=== PATIENT | male | born 1940 | race Caucasian/White ===

== ENCOUNTER 2022-11-25 10:12 | Outpatient (RCR) | payer MEDICARE, SELFPAY | END 2022-11-27 14:00 | disposition home or self-care (01) | LOC: PT 10:12 | PROVIDERS: PCP Family Medicine; Visit Provider Family Medicine | DX: M79.604 Pain in right leg (principal) | CPT/HCPCS: 97110 ==

== ENCOUNTER 2023-03-24 06:45 | Outpatient (OUT) | payer MEDICARE, SELFPAY ==
[2023-03-24 07:11] LABS: Basophils Percent Auto 0.5 % (0.2-2.0); Eosinophils Absolute Auto 0.2 10^3/uL (0.0-0.7); Hematocrit 39.7 % (42.0-54.0); Immature Granulocytes Abs Auto 0.03 10^3/uL (0.00-0.03); Immature Granulocytes Pct Auto 0.5 % (0.0-0.5); Lymphocytes Absolute Auto 0.8 10^3/uL (1.2-3.8); Lymphocytes Percent Auto 13.6 % (20.5-60.0); Mean Corpuscular HGB Conc 32.7 g/dL (29.9-35.2); Mean Corpuscular Hemoglobin 33.3 pg (25.9-34.0); Mean Corpuscular Volume 101.8 fL (80.0-94.0); Mean Platelet Volume 10.4 fL (9.5-13.5); Monocytes Absolute Auto 0.7 10^3/uL (0.3-0.8); Monocytes Percent Auto 11.6 % (1.7-12.0); Neutrophils Absolute Auto 4.1 10^3/uL (1.4-6.5); Neutrophils Percent Auto 69.8 % (43.0-75.0); Platelet Count 164 10^3/uL (150-450); Red Cell Distribution Width 13.4 % (11.0-15.0); White Blood Count 5.9 10^3/uL (4.0-11.0)
[2023-03-24 07:46] LABS: Estimated Average Glucose 137 mg/dL; Glycohemoglobin A1C 6.4 % (4.5-6.2)
[2023-03-24 08:36] LABS: Alanine Aminotransferase 31 U/L (16-63); Albumin Globulin Ratio 1.2; Albumin Level 3.6 g/dL (3.4-5.0); Alkaline Phosphatase 66 U/L (46-116); Anion Gap 16.9; Aspartate Amino Transferase 26 U/L (15-37); BUN Creatinine Ratio 15.2; Bilirubin Total 0.5 mg/dL (0.2-1.0); Calcium 8.7 mg/dL (8.5-10.1); Carbon Dioxide 23.1 mmol/L (21.0-32.0); Chloride 106 mmol/L (98-107); Chol HDL Ratio 2.7; Cholesterol 100 mg/dL (<=200); Estimated GFR (African America 37 (>=60); Estimated GFR (Non-African Ame 31 (>=60); Free T3 3.03 pg/mL (2.18-3.98); Globulin 3.1 g/dL; Glucose 120 mg/dL (74-106); HDL Cholesterol 37 mg/dL (40-60); Sodium 141 mmol/L (136-145); Total Protein 6.7 g/dL (6.4-8.2); Triglycerides 83 mg/dL (<=150); VLDL CHOLESTEROL 16.6 mg/dL
[2023-03-24 08:48] LABS: Prostate Specific Antigen Scrn 5.61 ng/mL (<=4.00)
[2023-03-26 08:12] LABS: PSA, Free 0.62 ng/mL; Prostate Specific Ag 4.6 ng/mL (0.0-4.0)
== END 2023-03-24 06:46 | disposition home or self-care (01) ==
LOC: LAB 06:48
PROVIDERS: PCP Family Medicine; Visit Provider Family Medicine
DX: E78.5 Hyperlipidemia, unspecified (principal); I10 Essential (primary) hypertension; J44.9 Chronic obstructive pulmonary disease, unspecified; E03.9 Hypothyroidism, unspecified; I25.10 Atherosclerotic heart disease of native coronary artery without angina pectoris; R73.09 Other abnormal glucose; Z12.5 Encounter for screening for malignant neoplasm of prostate
CPT/HCPCS: 36415; 80053; 80061; 83036; 84153; 84154; 84436; 84443; 84481; 85025; G0103

== ENCOUNTER 2023-06-08 10:38 | Outpatient (OUT) | payer MEDICARE, SELFPAY ==
[2023-06-08 11:13] LABS: Hematocrit 40.3 % (42.0-54.0); Hemoglobin 13.3 g/dL (14.0-18.0); Mean Corpuscular Hemoglobin 33.4 pg (25.9-34.0); Mean Corpuscular Volume 101.3 fL (80.0-94.0); Mean Platelet Volume 10.7 fL (9.5-13.5); Platelet Count 172 10^3/uL (150-450); Red Blood Count 3.98 10^6/uL (4.70-6.10); Red Cell Distribution Width 13.5 % (11.0-15.0); White Blood Count 5.9 10^3/uL (4.0-11.0)
[2023-06-08 11:17] LABS: Bilirubin Urine NEGATIVE (NEGATIVE); Blood Urine NEGATIVE (NEGATIVE); Clarity Urine CLEAR (CLEAR); Color Urine LT. YELLOW (YELLOW); Glucose Urine UA NEGATIVE (NEGATIVE); Ketones Urine NEGATIVE (NEGATIVE); Leukocyte Esterase Urine NEGATIVE (NEGATIVE); Nitrite Urine NEGATIVE (NEGATIVE); Protein Urine NEGATIVE (NEG/TRACE); Urobilinogen Urine 0.2 EU/dL (0.2-1.0)
[2023-06-08 11:23] LABS: Bacteria Urine NONE SEEN #/HPF (NONE SEEN); Cast Seen? NONE SEEN #/LPF (NONE SEEN); Crystals Seen? None Seen #/HPF (None Seen); Mucus Urine NONE SEEN (NONE SEEN); RBC Urine NONE SEEN #/HPF (0-2); Squamous Epithelial Cell Urine NONE SEEN #/LPF (NONE/RARE); WBC Urine NONE SEEN #/HPF (NONE SEEN)
[2023-06-08 11:54] LABS: Creatinine Urine Random 35.37 mg/dL (20.00-300.00); Protein Creatinine Ratio Urine 0.17; Total Protein Urine Random <6.0 mg/dL (<=11.9)
[2023-06-08 12:55] LABS: Percent Iron Saturation 32.2 %
[2023-06-08 12:56] LABS: Albumin Level 3.7 g/dL (3.4-5.0); Anion Gap 13.4; BUN Creatinine Ratio 13.3; Calcium 8.9 mg/dL (8.5-10.1); Carbon Dioxide 25.4 mmol/L (21.0-32.0); Chloride 102 mmol/L (98-107); Estimated GFR (African America 42 (>=60); Estimated GFR (Non-African Ame 35 (>=60); Glucose 78 mg/dL (74-106); Magnesium 1.8 mg/dL (1.8-2.4); Phosphorus 3.7 mg/dL (2.6-4.7); Potassium 4.8 mmol/L (3.5-5.1); Sodium 136 mmol/L (136-145); Uric Acid 6.6 mg/dL (3.5-7.2)
[2023-06-09 13:07] LABS: PTH, Intact 33 pg/mL (15-65)
== END 2023-06-08 10:39 | disposition home or self-care (01) ==
LOC: LAB 10:40
PROVIDERS: PCP Family Medicine; Visit Provider Internal Medicine
DX: E11.22 Type 2 diabetes mellitus with diabetic chronic kidney disease (principal); N18.30 Chronic kidney disease, stage 3 unspecified; I12.9 Hypertensive chronic kidney disease with stage 1 through stage 4 chronic kidney disease, or unspecified chronic kidney disease; N25.81 Secondary hyperparathyroidism of renal origin; N20.0 Calculus of kidney
CPT/HCPCS: 36415; 80069; 81001; 82306; 82570; 82728; 83540; 83550; 83735; 83970; 84156; 84550; 85027

== ENCOUNTER 2023-07-19 11:13 | Outpatient (OUT) | payer MEDICARE, SELFPAY ==
--- OUTSIDE RECORDS SUMMARY | 2023-07-19 11:18 | XMS_ITS | CCD ---
Author Name Unknown Address [address] [place] [address] Organization [facility] Care Team Providers Care Ethylbenzene Converter Operator Name Role Phone Tray Alfaro Primary Care Physician Alicia Perea Unavailable MD Tray Alfaro Primary Care Provider MD Hiral Interiano Admit Provider MD Hiral Interiano Attending Provider [phone] ALISHA Mckinley [facility] Other Provider Unavailable DO Lizzy Lin Other Provider MD Niharika Elias Other Provider MD Joel Larkin Other Provider MD Isidro Dow Other Provider MD Peter Manuel Other Provider ILA Borges Other Provider MD Peyton Barragan Other Provider MD Myesha Solo Other Provider MD Skinny Kiser Other Provider LEISA Tamayo- Jen Desir Other Provider MD Aaliyah Mitchell Other Provider MD Alicia Perea Other Provider MD Milton Braun Other Provider MD Ni Olivares Other Provider [phone] MD Yogesh Omalley Other Provider MD Kiran Eldridge Jr Other Provider [phone] MD Fátima Ivey Other Provider MD Shaquille Villarreal Other Provider MD Bipin Barclay Other Provider BRIT, ALICIA Consulting Unavailable BRIT, ALICIA Attending Unavailable BRIT, ALICIA Admitting Unavailable HOY ., DR FELIZ Primary Care Unavailable HOY ., DR FELIZ Primary Care Unavailable HOY ., DR FELIZ Admcrescencio Unavailable HOY ., DR FELIZ Attending Unavailable COOK, DR NI Garcia Consulting Unavailable COOK, DR NI Garcia Attending Unavailable HOY ., DR FELIZ Primary Care Unavailable COOK, DR NI Garcia Admitting Unavailable WEST, DR TYLER Coello Consulting Unavailable HOY ., DR FELIZ Consulting Unavailable HOY ., DR FELIZ Primary Care Unavailable HOY ., DR FELIZ Admcrescencio Unavailable HOY ., DR FELIZ Attending Unavailable HOY ., DR FELIZ Consulting Unavailable HOY ., DR FELIZ Attending Unavailable HOY ., DR FELIZ Primary Care Unavailable HOY ., DR FELIZ Admcrescencio Unavailable BRAUN ., DR ROSE Consulting Unavailable BRAUN ., DR ROSE Attending Unavailable HOY ., DR FELIZ Primary Care Unavailable BRAUN ., DR ROSE Admitting Unavailable WEST, DR TYLER Coello Consulting Unavailable DAT, THADDEUS Attending Unavailable HOY ., DR FELIZ Primary Care Unavailable LILIAN, DR CADE Craig Consulting Unavailabl e THADDEUS DAUGHERTY Admcrescencio Unavailable THADDEUS DAUGHERTY Consulting Unavailable YOGESH BYERS Consulting Unavailable ILA GLALEGO Consulting Unavailable BRIT, ALICIA Attending Unavailable BRIT, ALICIA Admitting Unavailable HOY ., DR FELIZ Primary Care Unavailable BRIT, ALICIA Consulting Unavailable HOY ., DR FELIZ Attending Unavailable HOY ., DR FELIZ Primary Care Unavailable HOY ., DR FELIZ Admcrescencio Unavailable HOY ., DR FELIZ Consulting Unavailable HOY ., DR FELIZ Attending Unavailable HOY ., DR FELIZ Primary Care Unavailable HOY ., DR FELIZ Admcrescencio Unavailable HOY ., DR FELIZ Consulting Unavailable BRIT, ALICIA Consulting Unavailable HOY ., DR FELIZ Attending Unavailable HOY ., DR FELIZ Primary Care Unavailable HOY ., DR FELIZ Admitting Unavailable IRWIN, ISRA Consulting Unavailable IRWIN, ISRA Attending Unavailable HOY ., DR FELIZ Primary Care Unavailable IRWIN, ISRA Admitting Unavailable HOY ., DR FELIZ Attending Unavailable HOY ., DR FELIZ Primary Care Unavailable HOY ., DR FELIZ Consulting Unavailable HOY ., DR FELIZ Admitting Unavailable WEST, DR TYLER Coello Consulting Unavailable BERNA, IRIS Consulting Unavailable BERNA, IRIS Attending Unavailable HOY ., DR FELIZ Primary Care Unavailable BERNA, IRIS Admitting Unavailable BERNA, IRIS Consulting Unavailable BERNA, IRIS Attending Unavailable BERNA, IRIS Admitting Unavailable HOY ., DR FELIZ Primary Care Unavailable HOY ., DR FELIZ Primary Care Unavailable HOY ., DR FELIZ Consulting Unavailable HOY ., DR FELIZ Attending Unavailable HOY ., DR FELIZ Admitting Unavailable HOY ., DR FELIZ Primary Care Unavailable COOK, DR NI Garcia Attending Unavailable COOK, DR NI Garcia Admitting Unavailable HOY ., DR FELIZ Consulting Unavailable COOK, DR NI Garcia Consulting Unavailable ZIEBER, DR TESS Brewer Consulting Unavailable HOY ., DR FELIZ Primary Care Unavailable HOY ., DR FELIZ Attending Unavailable HOY ., DR FELIZ Admitting Unavailable HOY ., DR FELIZ Consulting Unavailable HOY ., DR FELIZ Primary Care Unavailable HOY ., DR FELIZ Admitting Unavailable HOY ., DR FELIZ Attending Unavailable JENNIFER HUYNH Attending Unavailable BERNA, IRIS Attending Unavailable BERNA, IRIS Attending Unavailable MD Tray Alfaro Primary Care Provider [phone] MD Ni Olivares Attending Provider [phone] Ni OLIVARES P Referring Unavailable COOKRidgeNi P Admitting Unavailable Ni OLIVARES Attending Unavailable MD ALICIA PEREA Admitting Unavailable MD ALICIA PEREA Attending Unavailable COOK, Ni P Attending Unavailable COOK, Ni P Referring Unavailable COOK, Ni P Admitting Unavailable COOK, Ni P Referring Unavailable COOK, Ni P Admitting Unavailable COOK, Ni P Attending Unavailable COOK, Ni P Referring Unavailable COOK, Ni P Admitting Unavailable COOK, Ni P Attending Unavailable COOK, Ni P Attending Unavailable INTERIANOHIRAL RITTER Referring Unavailable COOK, Ni P Attending Unavailable COOK, Ni P Attending Unavailable COOK, Ni P Attending Unavailable Milton BRAUN Attending Unavailable Ni OLIVARES Attending Unavailable Ni OLIVARES P Referring Unavailable Ni OLIVARES P Admitting Unavailable Tray Alfaro Primary Care Unavailable Interiano, Hiral Admitting Unavailable Interiano, Hiral Attending Unavailable Ni Olivares Attending Unavailable Tray Alfaro Primary Care Unavailable Ni Olivares Admitting Unavailable Gita Mckinley Consulting Unavailable Tray Alfaro Primary Care Unavailable Interiano, Hiral Admitting Unavailable Interiano, Hiral Attending Unavailable Lizzy Lin Consulting Unavailable EliasNiharika iyer Consulting Unavailable Joel Larkin Consulting Unavail able Isidro Dow Consulting Unavailable Peter Manuel Consulting Unavailab Pauline Elizondo Consulting Unavailable Peyton Barragan Consulting Unavailable Myesha Solo Consulting Unavailab Skinny Sanchez Consulting Unavailable Jen Tamayo Consulting Unavailable Fidsamantha, Aaliyah Mcdermott Consulting Unavailable Alicia Perea Consulting Unavailable Milton Braun Consulting Unavailable Ni Olivares Consulting Unavailable Yogesh Omalley Consulting Unavailable Kiran Eldridge Jr Consulting Unavailable Fátima Ivey Consulting Unavailable Shaquille Villarreal Consulting Unavailable Bipin Barclay Consulting Unavailable Ni Olivares Attending Unavailable Tray Alfaro Primary Care Unavailable Ni Olivares Admitting Unavailable Ni Olivares Attending Unavailable Tray Alfaro Primary Care Unavailable Ni Olivares Admitting Unavailable Allergies Allergy Classification Reported Allergen(s) Allergy Type Date of Onset Reaction(s) Facility (12 sources) Ciprofloxacin; Translations: [ciprofloxacin] Drug Allergy 08-13-19 23 Eruption of skin (disorder) [facility] (13 sources) Penicillin; Translations: [penicillin] Drug Allergy Eruption of skin (disorder) [facility] Other (6 sources) Ciprofloxacin Drug Allergy Unknown [id number] Other (7 sources) Penicillins; Translations: [Penicillins] Allergy to substance 06-14-20 14 [facility] (1 source) Ciprofloxacin Drug Allergy 09-14-20 20 [facility] (3 sources) levothyroxine; Translations: [levothyroxine] Drug Allergy Swelling of oral cavity structure (finding) [facility] (3 sources) liothyronine; Translations: [liothyronine] Drug Allergy Swelling of oral cavity structure (finding) [facility] (1 source) No Known Medication Allergies; Translations: [No Known Medication Allergies] Propensity to adverse reactions (disorder) [facility] Rep[facility] (1 source) Ciprofloxacin Drug Allergy 08-13-19 [facility] Repository Medications Current Medications Medication Drug Class(es) Dates Sig (Normalized) Sig (Original) acetaminophen 325 mg / HYDROcodone bitartrate 5 mg oral tablet (1 source) Opioid Agonist Start: 10-07-2022 End: 10-09-2022 acetaminophen-hyd rocodone 325 mg-5 mg oral tablet 1 tab(s), Oral, q4hr Pain for 2 day(s), 7 tab(s), Refill(s) 0, [id number], 175, cm, 09/15/22 5:20:00 EDT, Height/Length Dosing, 114, kg, 09/15/22 5:20:00 EDT, Weight Dosing Start Date: 10/07/22 Stop Date: 10/09/22 Status: Ordered Albuterol (12 sources) beta2-Adrenergic Agonist Start: 02-23-2021 take 2 puff(s) by inhalation every four hours Ventolin Diskus 2 puff(s), Inhalation, q4hr Shortness of breath or wheezing, Refill(s) 0, COPD Start Date: 02/23/21 Status: Ordered Start: 02-23-2021 Ventolin Disku s See Instructions, Refill(s) 0, Shortness of breath or wheezing Start Date: 02/23/21 Status: Ordered Start: 02-23-2021 Ventolin Disku s Refill(s) 0 Start Date: 02/23/21 Status: Ordered take 1 puff(s) by in halation every four hours as needed Ventolin HFA 108 (90 Base) MCG/ACT 1 puff as needed Inhalation every 4 hrs Active amLODIPine 10 mg oral tablet (16 sources) Dihydropyridine Calcium Channel [place] Start: 02-23-2021 take 5 mg by mouth once daily amLODIPine 10 mg Tab 5 mg = 0.5 tab(s), Oral, Daily, Refills(s) 0, High blood pressure Start Date: 02/23/21 Status: Ordered Start: 06-15-2019 take 10 mg by mouth once daily Amlodipine Active 10 MG PO Daily June 15, 2019 12:00am aspirin 81 mg oral tablet (14 sources) Platelet Aggregation Inhibitor, Nonsteroidal Anti-inflammatory Drug Start: 04-10-2019 take 81 mg by mouth once daily Aspirin Active 81 MG PO Daily June 15, 2019 12:00am take 1 tablet by delmer th every twenty-four hours Aspirin 81 81 MG 1 tablet Orally Once a day Active take 1 tablet by mouth once andrew y Aspirin 81 81 MG 1 tablet Orally Once a day Active atorvastatin 80 mg oral tablet (16 sources) HMG-CoA Reductase Inhibitor Start: 06-15-2019 take 40 mg by mouth at bedtime Atorvastatin Active 40 MG PO Bedtime June 15, 2019 12:00am Start: 04-10-2019 take 1 tablet by delmer th once daily atorvastatin 80 mg Tab 80 mg = 1 tab(s), Oral, Daily, High cholesterol Start Date: 04/10/19 Status: Ordered cholecalciferol 0.125 mg disintegrating oral tablet (11 sources) Vitamin D Start: 06-15-2019 take 5000 [IU] by mouth once daily Cholecalciferol (Vitamin D3) Active 5000 UNIT PO Daily June 15, 2019 12:00am Start: 04-10-2019 take 1 tablet by delmer th once daily cholecalciferol 2000 intl units oral tablet (Vitamin D3) 2,000 International_Unit = 1 tab(s), Oral, Daily Start Date: 04/10/19 Status: Ordered Start: 04-10-2019 take 1 tablet by delmer th once daily cholecalciferol 2000 intl units oral tablet (Vitamin D3) 2,000 International_Unit = 1 tab(s), Oral, Daily Start Date: 04/10/19 Status: Ordered take 1 capsule by mo [facility] every twenty-four hours Vitamin D3 125 MCG (5000 UT) 1 capsule Orally Once a day Active diclofenac sodium 75 mg delayed release oral tablet (3 sources) Nonsteroidal Anti-inflammatory Drug Start: 09-14-2022 take 1 tablet by mouth twice daily diclofenac sodium 75 mg Oral EC Tab 75 mg = 1 tab(s), Oral, BID, Refills(s) 0, Arthritis Start Date: 09/14/22 Status: Ordered take 1 tablet by delmer th every twelve hours Diclofenac Sodium 75 MG 1 tablet as need ed Orally Twice a day Active dicyclomine hydrochloride 10 mg oral capsule (4 sources) Anticholinergic Start: 06-18-2019 take 10 mg by mouth three times daily for muscle spasms Dicyclomine Active 10 MG PO Three times daily June 18, 2019 12:09pm for bladder spasms doxycycline hyclate 100 mg oral capsule (5 sources) Tetracycline-class Drug Start: 12-07-2022 doxycycline hyclate 100 mg Cap See Instructions, Take 1 cap the day before your procedure and 1 cap the day of your procedure - afterwards, # 2 cap(s), Refills(s) 0, Pharmacy: [id number], 177, cm, 11/18/22 13:54:00 EDT, Height/Length Dosing, 114.7, kg, 11/18/22 13:54:00 EDT, W... Start Date: 12/07/22 Status: Ordered Start: 07-05-2019 End: 08-15-2022 take 100 mg by mouth twice daily Doxycycline Hyclate Discontinued 100 MG PO Twice daily 14 July 05, 2019 12:00am August 15, 2022 1:41pm glimepiride 4 mg oral tablet (19 sources) Sulfonylurea Start: 09-14-2022 take 1 tablet by mouth twice daily glimepiride 4 mg Tab 4 mg = 1 tab(s), Oral, BID, Refills(s) 0, Blood glucose Start Date: 09/14/22 Status: Ordered Start: 09-14-2022 take 1 tablet by delmer th at bedtime glimepiride 4 mg Tab 4 mg = 1 tab(s), Oral, Bedtime, Refills(s) 0, Blood glucose Start Date: 09/14/22 Status: Ordered Start: 06-18-2019 take 1 mg by mouth once daily Glimepiride Active 1 MG PO Daily 0 June 18, 2019 12:10pm Start: 06-15-2019 End: 06-18-2019 take 2 mg by mouth once daily Glimepiride Discontinued 2 MG PO Daily June 15, 2019 12:00am June 18, 2019 12:11pm Start: 04-10-2019 take 2 mg by mouth once daily Amaryl 4 mg Tab 2 mg = 0.5 tab(s), Oral, Daily Start Date: 04/10/19 Status: Ordered glucosamine sulfate 500 mg oral capsule (6 sources) Start: 04-10-2019 take 1 capsule by mouth twice daily glucosamine 500 mg Cap 500 mg = 1 cap(s), Oral, BID, Arthritis Start Date: 04/10/19 Status: Ordered Start: 04-10-2019 take 1 capsule by mo uth once daily glucosamine 500 mg Cap 500 mg = 1 cap(s), Oral, Daily, Arthritis Start Date: 04/10/19 Status: Ordered Glucosamine Chondr 500 Compl ex - (6 sources) Glucosamine Emmanuel dr 500 Complex - as directed Orally TWICE A DAY Active Glucosamine Emmanuel dr 500 Complex - as directed Orally TWICE A DAY Not-Taking Glucosamine Emmanuel dr 500 Complex - as directed Orally Active 24 hr isosorbide mononitrate 60 mg extended release oral tablet (10 sources) Nitrate Vasodilator Start: 09-14-2022 isosorbide mononitrate 60 mg ER Tab 120 mg = 2 tab(s), Oral, qAM, Refills(s) 0, High blood pressure Start Date: 09/14/22 Status: Ordered Start: 09-14-2022 take 1 tablet by delmer th once daily in the morning isosorbide mononitrate 60 mg ER Tab 60 mg = 1 tab(s), Oral, qAM, Refills(s) 0, High blood pressure Start Date: 09/14/22 Status: Ordered take 1 tablet by delmer th every twenty-four hours Isosorbide Mononitrate ER 120 MG 1 tablet in the morning Orally Once a day Active Ketoconazole (8 sources) Azole Antifungal Start: 11-19-2022 ketoconazole Topical, BID, Refills(s) 0 Start Date: 11/19/22 Status: Ordered Ketoconazole 2 % 1 application Externally Twice a day Active Ketoconazole 2 % 1 application Externally Twice a day Active levothyroxine sodium 0.05 mg oral tablet (12 sources) l-Thyroxine Start: 03-24-2020 take 1 tablet by mouth once daily levothyroxine 50 mcg (0.05 mg) Tab 50 mcg = 1 tab(s), Oral, Daily, Refills(s) 0, Thyroid Start Date: 03/24/20 Status: Ordered take 1 tablet by delmer th once daily in the morning Levothyroxine Sodium 50 MCG 1 tablet in the morning on an empty stomach Orally Once a day Active liothyronine sodium 0.005 mg oral tablet (5 sources) l-Triiodothyronine Start: 09-14-2022 take 1 tablet by mouth once daily liothyronine 5 mcg Tab 5 mcg = 1 tab(s), Oral, Daily, Refills(s) 0, Thyroid Start Date: 09/14/22 Status: Ordered take 1 tablet by delmer th every twenty-four hours Liothyronine Sodium 5 MCG 1 tablet on an empty stomach Orally Once a day Active lisinopril 10 mg oral tablet (16 sources) Angiotensin Converting Enzyme Inhibitor Start: 02-23-2021 take 2 tablets by mouth once daily lisinopril 10 mg Tab 20 mg = 2 tab(s), Oral, Daily, Refills(s) 0, High blood pressure Start Date: 02/23/21 Status: Ordered Start: 02-23-2021 take 1 mg by mouth once daily lisinopril 10 mg Tab mg tab(s), Oral, Daily, Refills(s) 0 Start Date: 02/23/21 Status: Ordered Start: 06-15-2019 End: 06-18-2019 take 60 mg by mouth once daily Lisinopril Discontinued 60 MG PO Daily June 15, 2019 12:00am June 18, 2019 12:11pm take 1 tablet by delmer th every twenty-four hours Lisinopril 20 MG 1 tablet Orally Once a day Active take 1.5 tablets by mouth every twenty-four hours Lisinopril 10 MG 1.5 tablet Orally Once a day for 90 day(s) Active Magnesium (4 sources) Start: 11-19-2022 take 1 tablet by delmer th once daily Magnesium Magnesium, one tab, Oral, Daily Start Date: 11/19/22 Status: Ordered Magnesium 400 MG as directed Orally Active Magnesium 400 MG as directed Orally Not-Taking 24 hr metoprolol succinate 50 mg extended release oral tablet (16 sources) beta-Adrenergic [place] Start: 03-24-2020 take 1 tablet by mouth twice daily metoprolol 50 mg ER Tab 50 mg = 1 tab(s), Oral, BID, Refills(s) 0, High blood pressure Start Date: 03/24/20 Status: Ordered Start: 03-24-2020 take 1 tablet by delmer th once daily metoprolol 50 mg ER Tab 50 mg = 1 tab(s), Oral, Daily, Refills(s) 0, High blood pressure Start Date: 03/24/20 Status: Ordered Start: 06-15-2019 take 50 mg by mouth twice andrew y Metoprolol Tartrate Active 50 MG PO Twice daily June 15, 2019 12:00am nitroglycerin 0.4 mg sublingual powder (13 sources) Nitrate Vasodilator Start: 11-18-2022 nitroglyce rin 0.4 mg, SubLingual, q5min, PRN Chest pain Start Date: 11/18/22 Status: Ordered Start: 06-15-2019 Nitroglycerin Active 0.3 MG SUBLINGUAL every 5 to 15 minutes June 15, 2019 12:00am Nitroglycerin 0. 4 MG as directed Sublingual Active Nitroglycerin 0. 3 MG as directed Sublingual Active pioglitazone 15 mg oral tablet (6 sources) Peroxisome Proliferator Receptor alpha Agonist, Peroxisome Proliferator Receptor gamma Agonist, Thiazolidinedione Start: 09-14-2022 take 1 tablet by mouth once daily pioglitazone 15 mg Tab 15 mg = 1 tab(s), Oral, Daily, Refills(s) 0, Blood glucose Start Date: 09/14/22 Status: Ordered 12 hr ranolazine 500 mg extended release oral tablet (4 sources) Anti-anginal Start: 11-18-2022 take 1 tablet by mouth once daily ranolazine 500 mg oral ER Tab 500 mg = 1 tab(s), Oral, Daily Start Date: 11/18/22 Status: Ordered take 1 tablet by delmer th every twelve hours Ranolazine ER 500 MG 1 tablet Orally Twi ce a day Active sildenafil 100 mg oral tablet (5 sources) Phosphodiesterase 5 Inhibitor Start: 08-18-2020 Viagra 100 mg Tab 100 mg = 1 tab(s), Oral, As Directed, 1 hour before sexual activity, # 30 tab(s), Refills(s) 2, [id number], 174, cm, 08/18/20 12:16:00 EST, Height/Length Dosing, 111, kg, 08/18/20 12:16:00 EST, Weight Dosing Start Date: 08/18/20 Status: Ordered SITagliptin 100 mg oral tablet (20 sources) Dipeptidyl Peptidase 4 Inhibitor Start: 06-18-2019 take 50 mg by mouth once daily Sitagliptin Phosphate Active 50 MG PO Daily 0 June 18, 2019 12:10pm Start: 04-10-2019 End: 06-18-2019 take 1 tablet by mouth once daily Sitagliptin Phosphate (Januvia) 100 mg tablet Discontinued 100 MG PO Daily June 15, 2019 12:00am June 18, 2019 12:11pm SITagliptin Phos phate 50 MG as directed Orally Active Spiriva Respimat 1.25 mcg/inh inhalation aerosol (1 source) Start: 02-23-2021 Spiriva Respimat 1.25 mcg/inh inhalation aerosol puff(s), Inhalation, Daily, Refill(s) 0 Start Date: 02/23/21 Status: Ordered terbinafine 250 mg oral tablet (2 sources) Allylamine Antifungal Start: 04-11-2019 take 1 tablet by mouth once daily terbinafine 250 mg oral tablet 250 mg = 1 tab(s), Oral, Daily Start Date: 04/11/19 Status: Ordered 60 actuat tiotropium 0.29522 mg/actuat inhalation spray (11 sources) Anticholinergic Start: 02-23-2021 Spiriva Respimat 1.25 mcg/inh inhalation aerosol 2 puff(s), Inhalation, Daily Shortness of breath or wheezing, Refill(s) 0, COPD Start Date: 02/23/21 Status: Ordered Start: 02-23-2021 Spiriva Respim at 1.25 mcg/inh inhalation aerosol puff(s), Inhalation, Daily, Refill(s) 0 Start Date: 02/23/21 Status: Ordered take 2 puff(s) by in halation once daily Spiriva Respimat 2.5 MCG/ACT 2 puffs Inhalation Once a day Active take 2 puff(s) by in halation once daily Spiriva Respimat 2.5 MCG/ACT 2 puffs Inhalation Once a day Active Triamcinolone (4 sources) Corticosteroid Start: 11-19-2022 triamcinolone acetonide Topical, BID, PRN Itching, Refills(s) 0 Start Date: 11/19/22 Status: Ordered Triamcinolone Ac etonide 0.5 % 1 application Externally Two times a Week Active Triamcinolone Ac etonide 0.5 % 1 application Externally Two times a Week Active Vitamin B Complex (6 sources) Vitamin B Comple x - as directed Orally Not-Taking Vitamin B Comple x - as directed Orally Active Vitamin B Complex oral capsule (6 sources) Start: 03-24-2020 take 1 capsule by mouth once daily Vitamin B Complex oral capsule 1 cap(s), Oral, Daily, Prophylaxis Start Date: 03/24/20 Status: Ordered Start: 03-24-2020 take 1 capsule by mouth once d aily Vitamin B Complex oral capsule 1 cap(s), Oral, Daily Start Date: 03/24/20 Status: Ordered Vitamin D3 (6 sources) Start: 08-18-2020 take 50 ug by mouth once daily Vitamin D3 50 mcg, Oral, Daily, Refills(s) 0, Prophylaxis Start Date: 08/18/20 Status: Ordered Start: 08-18-2020 Vitamin D3 Ref ills(s) 0 Start Date: 08/18/20 Status: Ordered Vitamin D3 125 MCG (5000 UT) (1 source) take 1 capsule by mo uth once daily Vitamin D3 125 MCG (5000 UT) 1 capsule Orally Once a day Active Completed/Discontinued Medications Medication Drug Class(es) Dates Sig (Normalized) Sig (Original) acetaminophen 300 mg / codeine phosphate 30 mg oral tablet (4 sources) Opioid Agonist Start: 06-15-2019 End: 07-05-2019 take 1 tablet by mouth every six hours Acetaminophen-Codei ne (Tylenol-Codeine #3) 300-30 mg Tablet Discontinued 300 MG PO Q6H June 15, 2019 12:00am July 05, 2019 9:12am metFORMIN hydrochloride 1000 mg oral tablet (4 sources) Biguanide Start: 06-15-2019 End: 06-18-2019 take 1000 mg by mouth twice daily Metformin Discontinued 1000 MG PO Twice daily June 15, 2019 12:00am June 18, 2019 12:11pm ticagrelor 90 mg oral tablet (4 sources) Start: 06-15-2019 End: 07-05-2019 take 90 mg by mouth twice daily Ticagrelor Discontinued 90 MG PO Twice daily June 15, 2019 12:00am July 05, 2019 9:12am Problems Active Problems Problem Classification Problem Date Documented Date Episodic/Chronic Abdominal pain (6 sources) Flank pain 02-23-2021 Episodic Acute and unspecified renal failure (4 sources) Renal failure syndrome; Translations: [Unspecified kidney failure] 08-11-2022 Chronic Acute myocardial infarction (6 sources) Myocardial infarction 04-10-2019 Chronic Calculus of urinary tract (20 sources) Kidney stone; Translations: [Calculus of kidney] Onset: 1 Resolved: 2 Episodic Cancer of prostate (8 sources) Malignant tumor of prostate; Translations: [Malignant neoplasm of prostate] Onset: 3 07-18-2019 Chronic Chronic kidney disease (19 sources) Chronic kidney disease; Translations: [Chronic kidney disease, unspecified] Onset: 3 08-11-2022 Chronic Chronic kidney disease (12 sources) Chronic kidney disease; Translations: [Chronic kidney disease, stage III (moderate)] Onset: 1 Resolved: 2 Chronic obstructive pulmonary disease and bronchiectasis (8 sources) Chronic obstructive lung disease; Translations: [Chronic obstructive pulmonary disease, unspecified] Onset: 3 09-14-2022 Chronic Coronary atherosclerosis and other heart disease (20 sources) Coronary arteriosclerosis; Translations: [Atherosclerotic heart disease of [place] coronary artery without angina pectoris] Onset: 3 04-10-2019 Chronic Coronary atherosclerosis and other heart disease (8 sources) Patient post percutaneous transluminal coronary angioplasty; Translations: [Coronary angioplasty status] Onset: 3 Episodic Deficiency and other anemia (6 sources) Anemia of renal disease; Translations: [Anemia in chronic kidney disease] Chronic Deficiency and other anemia (2 sources) Anemia in chronic kidney disease Chronic Diabetes mellitus with complications (20 sources) Diabetes mellitus; Translations: [Type 2 diabetes mellitus with other circulatory complications] Onset: 1 Resolved: 2 Chronic Diabetes mellitus without complication (16 sources) Type 2 diabetes mellitus; Translations: [Diabetes mellitus] Onset: 3 04-10-2019 Chronic Diabetes mellitus without complication (1 source) Other abnormal glucose; Translations: [OTHER ABNORMAL GLUCOSE] Onset: 3 Episodic Disorders of lipid metabolism (14 sources) Hyperlipidemia; Translations: [Hyperlipidemia, unspecified] Onset: 3 04-10-2019 Chronic Essential hypertension (17 sources) Hypertensive disorder; Translations: [Essential (primary) hypertension] Onset: 3 04-10-2019 Chronic Genitourinary symptoms and ill-defined conditions (16 sources) Nocturia; Translations: [Nocturia] Onset: 2 Episodic Hyperplasia of prostate (20 sources) Benign prostatic hypertrophy with outflow obstruction; Translations: [Benign prostatic hyperplasia with lower urinary tract symptoms] Onset: 2 Chronic Hypertension with complications and secondary hypertension (20 sources) Chronic kidney disease due to hypertension; Translations: [Hypertensive chronic kidney disease with stage 1 through stage 4 chronic kidney disease, or unspecified chronic kidney disease] Onset: 1 Resolved: 2 Chronic Nephritis; nephrosis; renal sclerosis (6 sources) Atrophy of left kidney; 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)] Onset: 3 06-15-2019 Chronic Noninfectious gastroenteritis (6 sources) Postprandial diarrhea 04-17-2019 Episodic Other and unspecified benign neoplasm (6 sources) Hyperplastic polyp of large intestine 04-10-2019 Episodic Other connective tissue disease (4 sources) Pain in right leg; Translations: [PAIN IN RIGHT LEG] Onset: 3 Episodic Other diseases of kidney and ureters (6 sources) Secondary hyperparathyroidism; Translations: [Secondary hyperparathyroidism of renal origin] Chronic Other diseases of kidney and ureters (7 sources) Secondary hyperparathyroidism of renal origin; Translations: [SEC HYPERPARATHYROIDISM RENAL ORIGN] Onset: 1 Resolved: 2 Chronic Other diseases of kidney and ureters (6 sources) Urinary tract obstruction; Translations: [Other obstructive and reflux uropathy] Onset: 2 Episodic Other diseases of kidney and ureters (11 sources) Hydronephrosis; Translations: [Unspecified hydronephrosis] 08-08-2019 Episodic Other diseases of kidney and ureters (6 sources) Hydronephrosis due to ureteral obstruction 07-18-2019 Episodic Other diseases of kidney and ureters (4 sources) Acute renal insufficiency; Translations: [Disorder of kidney and ureter, unspecified] 06-28-2019 Episodic Other diseases of kidney and ureters (4 sources) Occlusion of ureter; Translations: [Crossing vessel and stricture of ureter without hydronephrosis] 06-15-2019 Episodic Other diseases of kidney and ureters (4 sources) Obstructive nephropathy; Translations: [Other obstructive and reflux uropathy] 08-11-2022 Episodic Other gastrointestinal disorders (6 sources) Occult blood in stools 04-17-2019 Episodic Other lower respiratory disease (4 sources) Nodule of lung; Translations: [Solitary pulmonary nodule] 08-15-2022 Episodic Other lower respiratory disease (6 sources) Shortness of breath; Translations: [SHORTNESS OF BREATH] Onset: 3 Episodic Other male genital disorders (9 sources) Male erectile dysfunction, unspecified; Translations: [Erectile dysfunction] Onset: 2 Chronic Other male genital disorders (4 sources) Disorder of prostate, unspecified; Translations: [DISORDER OF PROSTATE UNSPECIFIED] Onset: 3 Episodic Other nutritional; endocrine; and metabolic disorders (6 sources) Morbid obesity; Translations: [Morbid (severe) obesity due to excess calories] Chronic Other nutritional; endocrine; and metabolic disorders (6 sources) Body mass index 30+ - obesity; Translations: [Body mass index (BMI) 36.0-36.9, adult] Chronic Other nutritional; endocrine; and metabolic disorders (4 sources) H/O: hypothyroidism 09-14-2022 Episodic Rheumatoid arthritis and related disease (6 sources) Rheumatoid arthritis 04-10-2019 Chronic Screening and history of mental health and substance abuse codes (7 sources) Ex-smoker; Translations: [Personal history of nicotine dependence] Onset: 3 Episodic Thyroid disorders (1 source) Hypothyroidism, unspecified; Translations: [HYPOTHYROIDISM UNSPECIFIED] Onset: 3 Chronic Unclassified (6 sources) Drug therapy finding 06-21-2019 Unclassified (4 sources) CHRN KIDNEY DISEASE STG 3 UNSP; Translations: [CHRN KIDNEY DISEASE STG 3 UNSP] Onset: 3 Unclassified (1 source) CONTACT W/AND (SUSP) EXPOS COVID-19; Translations: [CONTACT W/AND (SUSP) EXPOS COVID-19] Onset: 3 Unclassified (1 source) Benign prostatic hyperplasia with lower urinary tract symptoms; Translations: [Benign prostatic hyperplasia with lower urinary tract symptoms] Onset: 4 Unclassified (1 source) Acidosis, unspecified; Translations: [Acidosis, unspecified] Onset: 3 Urinary tract infections (8 sources) Pyelonephritis; Translations: [Tubulo-interstitial nephritis, not specified as acute or chronic] 06-15-2019 Episodic Past or Other Problems Problem Classification Problem Date Documented Date Episodic/Chronic Acute and unspecified renal failure (17 sources) Acute renal failure syndrome; Translations: [Injury of kidney] Onset: 08-11-2022 08-18-2020 Episodic Fluid and electrolyte disorders (12 sources) Metabolic acidosis; Translations: [Metabolic acidosis] Onset: 08-11-2022 08-11-2022 Episodic Malaise and fatigue (1 source) Other fatigue; Translations: [OTHER FATIGUE] Onset: 08-25-2022 Episodic Nonspecific chest pain (2 sources) Chest pain, unspecified; Translations: [Chest pain, unspecified] Onset: 10-14-2022 Episodic Other aftercare (1 source) rib bender (current) use of aspirin; Translations: [INTERMEDIATE CURRENT USE OF ASPIRIN] Onset: 08-13-2022 Episodic Other aftercare (1 source) Other skilled nursing (current) drug therapy; Translations: [OTH INTERMEDIATE CURRENT DRUG THERAPY] Onset: 08-13-2022 Episodic Other connective tissue disease (4 sources) Impingement syndrome of unspecified shoulder; Translations: [IMPINGEMENT SYNDROME UNS SHOULDER] Onset: 07-08-2022 Episodic Other diseases of kidney and ureters (2 sources) Disorder of kidney and ureter, unspecified; Translations: [Unspecified disorder of kidney and ureter] Onset: 08-11-2022 08-15-2022 Episodic Other diseases of kidney and ureters (5 sources) Hydronephrosis with renal and ureteral calculous obstruction; Translations: [Calculus of ureter] Onset: 08-11-2022 08-15-2022 Episodic Other diseases of kidney and ureters (2 sources) Other obstructive and reflux uropathy; Translations: [Other specified disorders of kidney and ureter] Onset: 08-11-2022 08-15-2022 Episodic Other lower respiratory disease (3 sources) Other forms of dyspnea; Translations: [OTHER FORMS OF DYSPNEA] Onset: 10-14-2022 Episodic Other lower respiratory disease (2 sources) Solitary pulmonary nodule; Translations: [Solitary pulmonary nodule] Onset: 08-11-2022 Episodic Other non-traumatic joint disorders (1 source) Pain in right shoulder; Translations: [PAIN IN RIGHT SHOULDER] Onset: 07-09-2022 Episodic Other non-traumatic joint disorders (4 sources) Pain in left knee; Translations: [PAIN IN LEFT KNEE] Onset: 02-03-2022 Episodic Other screening for suspected conditions (not mental disorders or infectious disease) (20 sources) Raised prostate specific antigen; Translations: [Elevated prostate specific antigen [PSA]] Onset: 08-11-2022 06-21-2019 Episodic Unclassified (1 source) CHRN KIDNEY DISEASE STG 3 UNSP; Translations: [CHRN KIDNEY DISEASE STG 3 UNSP] Onset: 08-18-2022 Results Test Name Value Interpretation Reference Range Facility Lab Reportson 07-05-2023 Lab Reports [id number] Normal [facility] Lab Reports [id number]#1.00TIFF Normal [facility] Blood Urea Nitrogenon 2023 Urea nitrogen [Mass/Vol] 31 mg/dL High 7-25 [facility] Comment on above: Performed By: #### L YTES, CA, URIC, PTH, BUN, CREAT ####[facility] [id number] [place] [address] [facility] Calciumon 07-02-2023 Calcium [Mass/Vol] 8.8 mg/dL Normal 8.6-10.3 [facility] Comment on above: Performed By: #### L YTES, CA, URIC, PTH, BUN, CREAT ####[facility] [id number] [place] [id number] [facility] Calcium [Mass/volume] in Ser um or PlasmaOrdered By: Ni Olivares on 07-02-2023 Calcium [Mass/Vol] 8.8 mg/dL 8.6-10.3 [facility] Carbon dioxide, total [Moles /volume] in Serum or PlasmaOrdered By: Ni Olivares on 07-02-2023 CO2 [Moles/Vol] 24.0 mmol/L 21.0-31.0 [facility] Chloride [Moles/volume] in S paty or PlasmaOrdered By: Ni Olivares on 07-02-2023 Chloride [Moles/Vol] 107 mmol/L 98-107 [facility] Creatinineon 07-02-2023 Creatinine [Mass/Vol] 2.05 mg/dL High 0.70-1.30 [facility] Comment on above: Performed By: #### L YTES, CA, URIC, PTH, BUN, CREAT ####[address] [place] [address] [place] GFR/1.73 sq M.predicted MDRD (S/P/Bld) [Vol rate/Area] 32.151 mL/min/{1.73_m2} Normal [facility] Comment on above: Performed By: #### L YTES, CA, URIC, PTH, BUN, CREAT ####[address] [place] [address] [facility] Creatinine [Mass/volume] in Serum or PlasmaOrdered By: Ni Olivares on 07-02-2023 Creatinine [Mass/Vol] 2.05 mg/dL 0.70-1.30 [facility] Electrolyteson 07-02-2023 Anion gap [Moles/Vol] 12.0 mmol/L Normal 6.0-15.0 [facility] Comment on above: Performed By: #### L YTES, CA, URIC, PTH, BUN, CREAT ####[address] [address] [facility] Chloride [Moles/Vol] 107 mmol/L Normal 98-107 [facility] Comment on above: Performed By: #### L YTES, CA, URIC, PTH, BUN, CREAT ####[address] [place] [address] [place] CO2 [Moles/Vol] 24.0 mmol/L Normal 21.0-31.0 [facility] Comment on above: Performed By: #### L YTES, CA, URIC, PTH, BUN, CREAT ####[address] [address] [facility] Potassium [Moles/Vol] 5.0 mmol/L Normal 3.5-5.1 [facility] Comment on above: Performed By: #### L YTES, CA, URIC, PTH, BUN, CREAT ####[facility] [place] [address] [facility] Sodium [Moles/Vol] 138 mmol/L Normal 136-145 [facility] Comment on above: Performed By: #### L YTES, CA, URIC, PTH, BUN, CREAT ####[address] [place] [address] [facility] No Panel InformationOrdered By: Ni Olivares on 07-02-2023 Estimated GFR (CKD-EPI) 32.151 mL/Min [facility] Creatinine Clearance (Chem N/A [facility] Parathyrin.intact [Mass/volu me] in Serum or PlasmaOrdered By: Ni Olivares on 07-02-2023 Parathyrin.intact [Mass/Vol] 55.4 pg/mL [facility] Parathyroid Hormone Intacton 07-02-2023 Parathyroid Hormone Intact 55.4 pg/mL Normal [facility] Comment on above: Result Comment: PERF ORMED BY: [facility] [address] [place] [id number] PATHOLOGIST LEATHER BELT LOOP CUTTER DIANDRA LACY M.D. Performed By: #### L YTES, CA, URIC, PTH, BUN, CREAT ####[address] [place] [address] [facility] Potassium [Moles/volume] in Serum or PlasmaOrdered By: Ni Olivares on 07-02-2023 Potassium [Moles/Vol] 5.0 mmol/L 3.5-5.1 [facility] Serum or plasma anion gap de terminationOrdered By: Ni Olivares on 07-02-2023 Anion gap [Moles/Vol] 12.0 mmol/L 6.0-15.0 [facility] Sodium [Moles/volume] in Ser um or PlasmaOrdered By: Ni Olivares on 07-02-2023 Sodium [Moles/Vol] 138 mmol/L 136-145 [facility] Urate [Mass/volume] in Serum or PlasmaOrdered By: Ni Olivares on 07-02-2023 Urate [Mass/Vol] 8.2 mg/dL 4.4-7.6 [facility] Urea nitrogen [Mass/volume] in Serum or PlasmaOrdered By: Ni Olivares on 07-02-2023 Urea nitrogen [Mass/Vol] 31 mg/dL 7-25 [facility] Uric Acidon 07-02-2023 Urate [Mass/Vol] 8.2 mg/dL High 4.4-7.6 [facility] Comment on above: Result Comment: PERF ORMED BY: [facility] [address] [place] [id number] PATHOLOGIST LEATHER BELT LOOP CUTTER DIANDRA LACY M.D. Performed By: #### L YTES, CA, URIC, PTH, BUN, CREAT ####[address] [place] [address] [facility] Lab Reportson 07-01-2023 Lab Reports [id number] Normal [facility] PSA Total (Not a Screen)on 0 06-28-2023 PSA Total (Not a Screen) 4.730 ng/mL High 0.000-4.00 0 [facility] Comment on above: Result Comment: Seri al tumor marker results determined by assays using different manufacturers or methods may not be comparable. [facility] cut lace machine operator and method: Make My plate DXI, CHEMILUMINESCENT IMMUNOASSAY. PERFORMED BY: [facility] [address] [place] [address] PATHOLOGIST LEATHER BELT LOOP CUTTER DIANDRA LACY M.D. Performed By: #### P SATOTAL ####[address] [place] [address] [facility] Prostate specific Ag [Mass/v olume] in Serum or PlasmaOrdered By: Ni Olivares on 06-28-2023 Prostate specific Ag [Mass/Vol] 4.730 ng/mL 0.000-4.00 0 [facility] Comment on above: Serial tumor marker results determined by assays using different manufacturers or methods may not be comparable.[facility] cut lace machine operator and method:Make My plate DXI, CHEMILUMINESCENT IMMUNOASSAY. RAD - Ultrasound Reporton RAD - Ultrasound Report [id number]#1.00TIFF Normal [facility] Lab Reportson 06-16-2023 Lab Reports [id number]#1.00TIFF Normal [facility] Lab Reports [id number]#1.00TIFF Normal [facility] Lab Reports [id number]#1.00TIFF Normal [facility] Screenson 06-16-2023 Screens [id number] Normal [facility] US renal BIon 06-16-2023 US renal BI [facility] [place] [address] Ultrasound Report Signed Patient: Victorino Smyth MR#: [id number] : 1940 Acct:[id number] Age/Sex: 82 / M ADM Date: 06/16/23 Loc: Room: Type: [facility] Attending Dr: Ni Olivares MD Ordering Provider: Ni Olivares MD Date of Service: 06/16/23 US/US renal BI: N20.0 Copies to: Ni Olivares MD Bilateral Renal Ultrasound HISTORY: History of kidney stone COMPARISON: None RIGHT kidney measures 13.2 cm. LEFT kidney measures 9.4 cm. Hydronephrosis: The minimal right hydronephrosis. No left hydronephrosis. RENAL STONE: Punctate nonshadowing right renal calculi. RENAL LESIONS: Right renal cyst measuring up to 2.4 cm. URINARY BLADDER: Minimal post void residual urinary bladder. PROSTATE GLAND Not assessed US/US renal BI IMPRESSION : Minimal right hydronephrosis. Punctate right renal calculi. Impression dictated by: Rehan Fuentes M.D.06/16/2023 4:02 PM Dictation Location: [place] [address] Tech: Sue Chiu Transcribed By: [facility] 06/16/23 1602 Dictated By: Rehan Fuentes DO 06/16/23 1556 Signed By: 06/16/23 1602 [facility] Ambulatory Visit Summaryon 1 08-15-2022 Ambulatory Visit Summary VICTORINO SMYTH :1940 Visit Date:06/14/2023 Ambulatory Visit Instructions Your Diagnosis Kidney stone BPH with urinary obstruction Prostate cancer Tests Performed Urnls Dip Stick Auto w/o Microscopy POC [id number] US Renal -- Results Pending -- Please visit your patient portal for your results or contact your primary care physician. Your Care Team Attending Physician - Ni OLIVARES MD Primary Care Physician - Tray Alfaro MD This Is Your Medications List Contact prescribing physician if questions or concerns Non-Formulary Medication (Magnesium) albuterol (Ventolin Diskus) amlodipine (amLODIPine 10 mg Tab) aspirin atorvastatin (atorvastatin 80 mg Tab) cholecalciferol (Vitamin D3) glimepiride (glimepiride 4 mg Tab) glucosamine (glucosamine 500 mg Cap) isosorbide mononitrate (isosorbide mononitrate 60 mg ER Tab) ketoconazole levothyroxine (levothyroxine 50 mcg (0.05 mg) Tab) liothyronine (liothyronine 5 mcg Tab) lisinopril (lisinopril 10 mg Tab) metoprolol (metoprolol 50 mg ER Tab) multivitamin (Vitamin B Complex oral capsule) nitroglycerin pioglitazone (pioglitazone 15 mg Tab) ranolazine (ranolazine 500 mg oral ER Tab) sitagliptin (Januvia 100 mg Tab) tiotropium (Spiriva Respimat 1.25 mcg/inh inhalation aerosol) triamcinolone (triamcinolone acetonide) Procedures Performed Cystoscopic removal of ureteric stent (12/20/2022), Cystoscopy (12/02/2022), ESWL of kidney (10/07/2022), Transurethral resection of prostate (08/01/2019), Biopsy of prostate (07/04/2019), cystoscopy, bilateral, ureteroscopy, laser lithotripsy (06/27/2019), colonoscopy with polypectomy, ear surgery, Neuroplasty and/or transposition; median nerve at carpal tunnel, Patient has a coronary artery stent (Peri2), Percutaneous transluminal coronary angioplasty; single major coronary artery or branch, TRIGGER FINGER RELEASE. What to do next You Need to Schedule the Following Appointments Follow Up with CARLOS OLIVEROS, BHUPINDER Merritt When: Where: [address] [place] [phone]- Medications What How Much When Instructions Unchanged albuterol (Ventolin Diskus) 2 Puffs Inhalation Every 4 hours as needed for Shortness of breath or wheezing Contact prescribing physician if questions or concerns Unchanged amlodipine (amLODIPine 10 mg Tab) 1 Tablets By Mouth Every day Contact prescribing physician if questions or concerns Unchanged aspirin 81 Milligram By Mouth Every day Contact prescribing physician if questions or concerns Unchanged atorvastatin (atorvastatin 80 mg Tab) 1 Tablets By Mouth Every day Contact prescribing physician if questions or concerns Unchanged cholecalciferol (Vitamin D3) 50 Microgram By Mouth Every day Contact prescribing physician if questions or concerns Unchanged glimepiride (glimepiride 4 mg Tab) 1 Tablets By Mouth 2 times a day Contact prescribing physician if questions or concerns Unchanged glucosamine (glucosamine 500 mg Cap) 1 Capsules By Mouth 2 times a day Contact prescribing physician if questions or concerns Unchanged isosorbide mononitrate (isosorbide mononitrate 60 mg ER Tab) 2 Tablets By Mouth Once a day (in the morning) Contact prescribing physician if questions or concerns Unchanged ketoconazole Topical 2 times a day Contact prescribing physician if questions or concerns Unchanged levothyroxine (levothyroxine 50 mcg (0.05 mg) Tab) 1 Tablets By Mouth Every day Contact prescribing physician if questions or concerns Unchanged liothyronine (liothyronine 5 mcg Tab) 1 Tablets By Mouth Every day Contact prescribing physician if questions or concerns Unchanged lisinopril (lisinopril 10 mg Tab) 2 Tablets By Mouth Every day Contact prescribing physician if questions or concerns Unchanged metoprolol (metoprolol 50 mg ER Tab) 1 Tablets By Mouth 2 times a day Contact prescribing physician if questions or concerns Unchanged multivitamin (Vitamin B Complex oral capsule) 1 Capsules By Mouth Every day Contact prescribing physician if questions or concerns Unchanged nitroglycerin 0.4 Milligram Sublingual Every 5 minutes as needed for Chest pain Contact prescribing physician if questions or concerns Unchanged Non-Formulary Medication (Magnesium) one tab By Mouth Every day Contact prescribing physician if questions or concerns Unchanged pioglitazone (pioglitazone 15 mg Tab) 1 Tablets By Mouth Every day Contact prescribing physician if questions or concerns Unchanged ranolazine (ranolazine 500 mg oral ER Tab) 1 Tablets By Mouth Every day Contact prescribing physician if questions or concerns Unchanged sitagliptin (Januvia 100 mg Tab) 1 Tablets By Mouth Every day Contact prescribing physician if questions or concerns Unchanged tiotropium (Spiriva Respimat 1.25 mcg/ inh inhalation aerosol) 2 Puffs Inhalation Every day as needed for Shortness of breath or wheezing Contact prescribing physician if questions or concerns Unchanged (more content not included)... [facility] Formson 06-14-2023 Forms [id number]#[id number] [facility] Patient Educationon 06-14-20 23 Patient Education Nephrology Dietary Guidelines to Help Prevent Kidney Stones Kidney stones are deposits of minerals and salts that form inside your kidneys. Your risk of developing kidney stones may be greater depending on your diet, your lifestyle, the medicines you take, and whether you have certain medical conditions. Most people can lower their risks of developing kidney stones by following these dietary guidelines. Your dietitian may give you more specific instructions depending on your overall health and the type of kidney stones you tend to develop. What are tips for following this plan? Reading food labels ? Choose foods with no salt added or low-salt labels. Limit your salt (sodium) intake to less than 1,500 mg a day. ? Choose foods with calcium for each meal and snack. Try to eat about 300 mg of calcium at each meal. Foods that contain 200?500 mg of calcium a serving include: ? 8 oz (237 mL) of milk, bqxuwyx-tfdmsynrgvsc-kaaka milk, and calcium-fortifiedfruit juice. Calcium-fortified means that calcium has been added to these drinks. ? 8 oz (237 mL) of kefir, yogurt, and soy yogurt. ? 4 oz (114 g) of tofu. ? 1 oz (28 g) of cheese. ? 1 cup (150 g) of dried figs. ? 1 cup (91 g) of cooked broccoli. ? One 3 oz (85 g) can of sardines or mackerel. Most people need 1,000?1,500 mg of calcium a day. Talk to your dietitian about how much calcium is recommended for you. Shopping ? Buy plenty of fresh fruits and vegetables. Most people do not need to avoid fruits and vegetables, even if these foods contain nutrients that may contribute to kidney stones. ? When shopping for convenience foods, choose: ? Whole pieces of fruit. ? Pre-made salads with dressing on the side. ? Low-fat fruit and yogurt smoothies. ? Avoid buying frozen meals or prepared deli foods. These can be high in sodium. ? Look for foods with live cultures, such as yogurt and kefir. ? Choose high-fiber grains, such as whole-wheat breads, oat bran, and wheat cereals. Cooking ? Do not add salt to food when cooking. Place a salt shaker on the table and allow each person to add their own salt to taste. ? Use vegetable protein, such as beans, textured vegetable protein (TVP), or tofu, instead of meat in pasta, casseroles, and soups. Meal planning ? Eat less salt, if told by your dietitian. To do this: ? Avoid eating processed or pre-made food. ? Avoid eating fast food. ? Eat less animal protein, including cheese, meat, poultry, or fish, if told by your dietitian. To do this: ? Limit the number of times you have meat, poultry, fish, or cheese each week. Eat a diet free of meat at least 2 days a week. ? Eat only one serving each day of meat, poultry, fish, or seafood. ? When you prepare animal proteins, cut pieces into small portion sizes. For most meat and fish, one serving is about the size of the palm of your hand. ? Eat at least five servings of fresh fruits and vegetables each day. To do this: ? Keep fruits and vegetables on hand for snacks. ? Eat one piece of fruit or a handful of berries with breakfast. ? Have a salad and fruit at lunch. ? Have two kinds of vegetables at dinner. ? You may be told to limit foods that are high in a substance called oxalate. These include: ? Spinach (cooked), rhubarb, beets, sweet potatoes, and Armenian chard. ? Peanuts. ? Potato chips, british fries, and baked potatoes with skin on. ? Nuts and nut products. ? Chocolate. ? If you regularly take a diuretic medicine, make sure to eat at least 1 or 2 servings of fruits or vegetables that are high in potassium each day. These include: ? Avocado. ? Banana. ? [place], prune, carrot, or tomato juice. ? Baked potato. ? Cabbage. ? Beans and split peas. Lifestyle ? Drink enough fluid to keep your urine pale yellow. This is the most important thing you can do. Spread your fluid intake throughout the day. ? If you drink alcohol: ? Limit how much you have to: ? 0?1 drink a day for women who are not . ? 0?2 drinks a day for men. ? Know how much alcohol is in your drink. In the [place] one drink equals one 12 oz bottle of beer (355 mL), one 5 oz glass of wine (148 mL), or one 1? oz glass of hard liquor (44 mL). ? Lose weight if told by your health care provider. Work with your dietitian to find an eating plan and weight loss strategies that work best for you. General information ? Talk to your health care provider and dietitian about taking daily supplements. Depending on your health and the cause of your kidney stones, you may be told: ? Do not take high-dose supplements of vitamin C (1,000 mg a day or more). ? To take a calcium supplement. ? To take a daily probiotic supplement. ? To take other supplements such as magnesium, fish oil, or vitamin B6. ? Take fxcu-nan-dvcjtwd and prescription medicines only as told by your health care provider. These include supplements. What foods sh (more content not included)... Normal [facility] Urology Office/Clinic Noteon 06-14-2023 Urology Office/Clinic Note HPI Staff Follow up to ESWL w/24 hour urine. Pt did not complete 24 hour urine. Pt states he was not informed 24 hour urine needed complete and he has been having issues with his phone. Current PSA 4.6 and 13.5% done 03/24/23. PVR today 63ml. Previous DX: acute kidney failure, BPH w/ urinary obstruction, elevated PSA, ED, flank pain, hydronephrosis, kidney stone, prostate cancer, ureteral stone, urinary retention. S/P cysto/stent removal done on 04/15/20, cysto/bilateral dilation ureteral/stent done on 03/11/20, TURP done on 08/01/19, biopsy of prostate done on 07/04/19, cysto/RG/laser done on 06/27/19. Dysuria: denies pain and burning Incomplete bladder emptying: occasionally Hematuria: denies visible blood Frequency: 2-3x a day Urgency: Pt states it depends on how long he holds his urine Nocturia: 2x a night Stream: denies hesitancy, moderate stream Leaking: denies Post void dripping: maybe just a little bit Wearing pads/ Depends: denies Urge incontinence: denies Stress incontinence: denies Incontinence without Sensory Awareness: denies Abdominal pain: denies Flank pain: sometimes Rt sided pain when going from laying position to sitting Sexual complaints: _ History of Present Illness Tests reviewed: reviewed UA, labs, PSA I have reviewed the previous health record information and history for this patient from Dr. Olivares. I have reviewed and verified the staff HPI to be accurate for this encounter. There have been no associated fever, chills, flank pain, or blood in the urine. Denies any urinary infections since last encounter. Review of Systems ROS - Provider Constitutional: denies weight loss, denies hot flashes. Eyes: denies eye problems. Gastrointestinal: denies nausea, denies vomiting. Cardiovascular: denies chest pain or angina. Integumentary: no dryness Musculoskeletal: denies musculoskeletal symptoms. ENMT: denies otolaryngeal symptoms. Respiratory: no shortness of breath. Heme/Lymph: denies easy bleeding tendency, denies easy bruising tendency. Psychiatric: no confusion, no anxiety. Genitourinary: See HPI. Physical Exam General Appearance: alert, no distress, well nourished, well developed male. Assessment/Plan Labs: BUN 25, Cr 1.88, eGFR 35 drawn 06/08/23. Portions of this record may have been created with voice recognition artificial intelligence software, specifically [employer], [employer] and or [employer]. Substitutions may have occurred due to the inherent limitations of voice recognition and artificial intelligence software. 1. Kidney stone (N20.0: Calculus of kidney) S/p R ESWL 10/07/22. S/p cysto, R stent removal, basket extraction, replacement of R stent placement 12/02/22. Cysto, R stent removal 12/20/22. Stone analysis shows uric acid. Pt states he has been having phone issues so he did not have any imaging or 24 hour urine done. -Will order [facility] and [facility] and serum labs -Follow up in 1 year 2. BPH with urinary obstruction (N40.1: Benign prostatic hyperplasia with lower urinary tract symptoms) TURP 07/2019. Not taking any prostate meds. UA today neg. IPSS 6-8. Prostate volume noted from TRUS/bx 2019 measured 90 mL. 3. Prostate cancer (C61: Malignant neoplasm of prostate) TRUS/bx 07/05/[address] Carlisle. Path Dom 6 (3+3) x2 involving 15%. Pt states active surveillance was decided on. Dr. Alfaro has been checking PSA. PSA: 11/06/22 - 5.80 03/24/23 - 4.6 & 13.5% Overall unfortunately the patient did not get any imaging studies done prior to this visit. He desires this done now. Arrangements made for the Litholink 24-hour urine analysis and some blood work. Renal ultrasound will be obtained given the history of uric acid stones in the past. He does have a pH currently 6.5 on the urine which actually does not make sense if his stones are truly uric acid. Regardless renal ultrasound will be the choice rather than KUB. He does relate that he has a history of prostate cancer and, followed by Dr. Alfaro with PSA levels noted above. Continued active surveillance given the drop in the PSA. Follow-up With When Contact Information CARLOS OLIVEROS, Ni P, URL [address] [place] [id number]- Additional Instructions: 1 year Patient Education Dietary Guidelines to Help Prevent Kidney Stones I, Dahiana Josehp, personally scribed for Dr. Olivares on 06/14/2023 09:48:20. . Documentation recorded by the scribe, Dahiana Joseph, accurately reflects the services(s) I performed and decisions made by me. Authenticated by Dr. Olivares on 06/14/2023 09:53:11. 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 [facility] Comment on above: Result Comment: Elec tronically Signed By: Ni OLIVARES MD\.br\Date and Time Signed: 06/14/23 09:55 EST\.br\Electronically Co-Signed By: Dahiana Joseph\.br\Date and Time Co-Signed: 06/14/23 09:48 EST\.br\Electronically Co-Signed By: Dahiana Joseph\.br\Date and Time Co-Signed: 06/14/23 09:50 EST Office Visiton 01-26-2023 Follow-up visit [id number] Ruben Smyth 1940 M Date Provider Department Center 01/26/2023 JENNIFER SMITH FABIOLA Mcneill [facility] Family History Problem Relation Age of Onset No Known Problems Mother No Known Problems Father Family Status - Relation Status Age at Mother Father Level of Service:35669 [place] OFFICE/OUTPATIENT ESTABLISHED LOW MDM 20-29 MIN [facility] Consent for Procedure/Surger yon 12-21-2022 Consent for Procedure/Surgery [id number]:127 Normal [facility] IntraOperative Documentson 0 12-21-2022 IntraOperative Documents [id number]:127 [facility] Consent for Treatmenton 11-26 Consent for Treatment [id number]:127 [facility] Inpatient Patient Summaryon 12-20-2022 Inpatient Patient Summary [place] [id number] Clinical Summary Person Information Name: VICTORINO SMYTH Age: 82 Years : 1940 Sex: Male PCP: Tray Alfaro MD Marital Status: Race: White Ethnicity: Non- or Language: Argentine Visit Id: Visit Reason: RIGHT KIDNEY STONE Speciality: Acuity: Enc Type: Outpatient Med Service: Surgery Arrival: 12/20/2022 15:00:15 Discharge: Dispo Type: Address: [address] [place] [address] [id number] Provider Notes: Diagnosis: Problems Active Flank pain BPH associated with nocturia Erectile dysfunction Kidney stone Acute kidney failure Ureteral stone BPH with urinary obstruction Hydronephrosis Hydronephrosis with ureteral calculus Urinary retention Prostate cancer Elevated PSA Anticoagulated Postprandial diarrhea Occult blood in stools Coronary artery disease Hyperplastic colon polyp Rheumatoid arthritis Myocardial infarct Hypertension Hyperlipidemia DM (diabetes mellitus), type 2 Smoking Status: Functional Status: Sensory Deficits: History of Falls: Mobility Assistance Prior to Admission: ADLs: Current Level of Assistance for Self-Care/Mobility: Cognitive Status: Allergies penicillin (Rash) ciprofloxacin (Rash) liothyronine (Mouth swelling) levothyroxine (Mouth swelling) Laboratory or Other Results This Visit (last charted value for your 12/20/2022 visit) No Laboratory or Other Results This Visit Measurements: Height: 174 cm Weight: Blood Pressure: Not Valued / Not Valued BMI: Procedures No Procedures Documented Immunizations No Immunizations Documented This Visit Final Med List: albuterol (Ventolin Diskus) 2 Puffs Inhalation every 4 hours as needed Shortness of breath or wheezing. amlodipine (amLODIPine 10 mg Tab) 1 Tablets By Mouth every day. aspirin 81 Milligram By Mouth every day. atorvastatin (atorvastatin 80 mg Tab) 1 Tablets By Mouth every day. cholecalciferol (Vitamin D3) 50 Microgram By Mouth every day. doxycycline (doxycycline hyclate 100 mg Cap) Take 1 cap the day before your procedure and 1 cap the day of your procedure - afterwards. Refills: 0. glimepiride (glimepiride 4 mg Tab) 1 Tablets By Mouth 2 times a day. glucosamine (glucosamine 500 mg Cap) 1 Capsules By Mouth 2 times a day. isosorbide mononitrate (isosorbide mononitrate 60 mg ER Tab) 2 Tablets By Mouth once a day (in the morning). ketoconazole Topical 2 times a day. levothyroxine (levothyroxine 50 mcg (0.05 mg) Tab) 1 Tablets By Mouth every day. liothyronine (liothyronine 5 mcg Tab) 1 Tablets By Mouth every day. lisinopril (lisinopril 10 mg Tab) 2 Tablets By Mouth every day. metoprolol (metoprolol 50 mg ER Tab) 1 Tablets By Mouth 2 times a day. multivitamin (Vitamin B Complex oral capsule) 1 Capsules By Mouth every day. nitroglycerin 0.4 Milligram Sublingual every 5 minutes as needed Chest pain. Non-Formulary Medication (Magnesium) one tab By Mouth every day. pioglitazone (pioglitazone 15 mg Tab) 1 Tablets By Mouth every day. ranolazine (ranolazine 500 mg oral ER Tab) 1 Tablets By Mouth every day. sildenafil (Viagra 100 mg Tab) 1 Tablets By Mouth As Directed. 1 hour before sexual activity. Refills: 2. sitagliptin (Januvia 100 mg Tab) 1 Tablets By Mouth every day. tiotropium (Spiriva Respimat 1.25 mcg/inh inhalation aerosol) 2 Puffs Inhalation every day as needed Shortness of breath or wheezing. triamcinolone (triamcinolone acetonide) Topical 2 times a day as needed Itching. Care Team Members: Attending Physician: Ni OLIVARES MD Consulting Physician: Referring Physician: Ni OLIVARES MD Follow up: With: Address: When: Ni OLIVARES [address] [place] [address], [address], [place] [address] [facility] (1) Within 6 months Comments: Call for followup appointment. When you call for your appointment, please ask my office to make arrangements for an abdominal x-ray to be obtained about 1 week prior to your appointment in 6 months. Push the fluids to keep the urine clear. Should you decide to proceed with a repeat 24-hour urine collection and blood work, please notify my office and we can make those arrangements as well. Have a great day. Patient Education Information: EU - Cystoscopy with Stent Removal Discharge Instructions (Custom) [facility] Main OR Intraoperative Recor don 12-20-2022 Main OR Intraoperative Record IntraOp Document Type FTURO Summary Primary Physician: Ni OLIVARES MD Finalized Date/Time: 12/20/22 16:29:12 Pt. Name: VICTORINO SMYTH Bryan RuedaB./Sex: 1940 Male Med Rec #: [id number] Physician: Ni OLIVARES MD Financial #: [id number] Pt. Type: O Room/Bed: / Admit/Disch: 12/20/22 15:00:15 - Institution: Case Times FTURO Entry 1 Patient Times In Room 12/20/22 16:16:00 Out Room 12/20/22 16:28:00 Procedure Times Start 12/20/22 16:21:00 Stop 12/20/22 16:23:00 Anesthesia Times Last Modified By: Gemma BRITO, Maggie Garcia 12/20/22 16:24:05 Case Attendance FTURO Entry 1 Entry 2 Entry 3 Case Attendee Ni OLIVARES MD, RN, Maggie Perez CST, Shabnam Garcia Role Performed Surgeon - Primary Screening Specialist - Primary Scrub - Primary Time In 12/20/22 16:16:00 12/20/22 16:16:00 12/20/22 16:16:00 Time Out 12/20/22 16:28:00 12/20/22 16:28:00 12/20/22 16:28:00 Procedure CYSTOSCOPY LOCAL WITH CYSTOSCOPY LOCAL WITH CYSTOSCOPY LOCAL WITH STENT REMOVAL(Right) STENT REMOVAL(Right) STENT REMOVAL(Right) Comments Last Modified By: Gemma BRITO, Maggie Menendez RN, Maggie Menendez RN, Maggie Garcia 12/20/22 Gunjan Garcia 12/20/22 Gunjan Garcia 12/20/22 16:24:06 16:24:06 16:24:06 Surgical Procedures FTURO Entry 1 Procedure Description Procedure CYSTOSCOPY LOCAL WITH Modifiers Right STENT REMOVAL Surgeon Description CYSTOSCOPY RIGHT STENT REMOVAL Primary Procedure Yes Primary Surgeon Ni OLIVARES MD Start 12/20/22 16:21:00 Stop 12/20/22 16:23:00 Anesthesia Type Local Surgical Service Urology Wound Class 2 - Clean-Contaminated Last Modified By: Gemma BRITO, Maggie Garcia 12/20/22 16:23:59 General Case Data FTURO Pre-Care Text: Classifies surgical wound, implements aseptic technique, initiates traffic control Entry 1 Case Information OR URO 1 FT Case Level None Wound Class 2 - Clean-Contaminated Specialty Urology Preop Diagnosis RIGHT KIDNEY STONE Postop Same As Preop Yes Postop Diagnosis RIGHT KIDNEY STONE Outcomes Met? Yes Last Modified By: Maggie Menendez RN 12/20/22 16:17:20 Post-Care Text: The patient is free from signs and symptoms of infection EU IntraOp - FTURO Pre-Care Text: Implements protective measures prior to operative or invasive procedure, confirms identity before the operative or invasive procedure, verifies operative procedure, surgical site, and laterality Entry 1 EU Perioperative Protocols Procedure(s) CYSTOSCOPY LOCAL WITH Patient Identity Birthday, ID Band STENT REMOVAL(Right) Verified (select at Check, Patient least 2): Participation Consents / H and P HandP, Surgery/Procedure Operative Site N/A Verified Consent Marking Verified Surgical Site Yes Laterality Verified Yes Verified Procedure Verified Yes Correct Patient Yes Position Verified Availability Equipment, Medication Time Out CARLOS OLIVEROS, Ni Garcia, Verified (If Participants Gemma BRITO, Maggie Applicable) Ana Fenton CST, Shabnam Khanna Time Out Complete 12/20/22 16:17:00 Allergies Reviewed? Yes Allergies Reviewed Self/Patient With Body Position Supine Prep Area PENIS Prep Agents Betadine Solution Skin. Condition Unable to Visualize Description PARTIALLY CLOTHED Additional None Specimens Collected Vitals - EU Blood Pressure 125/68 Pulse 78 bpm Respirations 16 br/min SPO2 94 % IandO - EU Outcomes Met? Yes Last Modified By: Maggie Menendez RN 12/20/22 16:18:31 Post-Care Text: The patient is free from signs and symptoms of injury caused by extraneous objects Implant Log FTURO Pre-Care Text: Records devices implanted during the operative or invasive procedure Entry 1 Implant/Explant Explant Implant Identification Description PREVIOUSLY IMPLANTED STENT Usage Data Outcomes Met? Yes Last Modified By: Maggie Menendez RN 12/20/22 16:23:43 Post-Care Text: The patient is free from signs and symptoms of injury caused by extraneous objects Sign Out FTURO Entry 1 Before Patient Leaves OR Nurse verbally Yes Nurse verbally Yes confirms with the confirms with the team the name of team that the procedure(s) instrument, sponge, recorded and needle counts are correct (or N/A) Nurse verbally n/a Nurse verbally Yes confirms with the confirms with the team how the team whether there specimen is labeled are any equipment (including patient problems to be name), if applicable addressed Sign Out Complete 12/20/22 16:24:00 Last Modified By: Maggie Menendez RN 12/20/22 16:24:01 Case Comments Finalized By: Maggie Menendez RN Document Signatures Signed By: Maggie Menendez RN 12/20/22 16:24 Maggie Menendez RN 12/20/22 16:29 Normal [facility] Main OR Preoperative Recordo n 12-20-2022 Main OR Preoperative Record Holding Area Document Type FTURO Summary Primary Physician: Ni OLIVARES MD Finalized Date/Time: 12/20/22 15:39:13 Pt. Name: HAJA VICTORINODANYELLE Dubon/Sex: 1940 Male Med Rec #: [id number] Physician: Ni OLIVARES MD Financial #: [id number] Pt. Type: O Room/Bed: / Admit/Disch: 12/20/22 15:00:15 - Institution: Case Times Holding FTURO Pre-Care Text: Verifies consent for planned procedure, identifies individual values and wishes concerning care, includes family members in perioperative teaching Secures patient's records' belongings, and valuables, maintains patient's dignity and privacy, and maintains patient confidentiality Entry 1 In Holding 12/20/22 15:36:00 Outcomes Met? Yes Last Modified By: Janay Gonzales RN 12/20/22 15:36:12 Post-Care Text: The patient participates in decisions affecting his or her perioperative plan of care The patient's right to privacy is maintained Surgery Checklist FTURO Entry 1 Patient Birthday, ID Band Procedure History and Physical, Identification: Check, Patient Verification: Surgical Consent, With Participation Patient NPO after Midnight: n/a Personal Items: Glasses Personal Items glasses Limitations: up ad anthony Comment: Complaints of Pain: No Skin Integrity Dry, Warm Vitals - EU Blood Pressure 125/62 Pulse 78 bpm Respirations 16 br/min SPO2 94 % Additional None RN Reviewed Yes Specimens Collected Last Modified By: Janay Gonzales RN 12/20/22 15:39:08 Finalized By: Janay Gonzales RN Document Signatures Signed By: Janay Gonzales RN 12/20/22 15:39 Normal [facility] Operative Reporton Operative Report Patient: SHERYL SMYTH Age: 82 years Sex: Male : 1940 Associated Diagnoses: None Author: Ni OLIVARES MD Procedure Operative Information Details: Date/ Time: 12/20/2022 16:28:00. Pre-Op Dx: Foreign Body in Bladder - T19.1XXA, BPH with lower urinary tract sx. Post-Op Dx: Same. Anesthesia Type: Local. Procedure: Local Cystoscopy with Stent Removal. Complications: None. Risks/Benefits/Informed Consent: Surgical risks, benefits, details of the procedure have been explained to the patient, Full informed consent has been obtained. Intraoperative Information Prepped: The patient was prepped with the Betadine solution. Anesthesia: 2% Xylocaine Jelly per urethra. Procedure: Cystoscopy and Right Stent Removal, The flexible Cystoscope was passed in retrograde fashion into the bladder without difficulty, The bladder was viewed in entirety and found to be without tumors or stones, Mild inflammation was seen surrounding the orifice with the stent seen protruding from it, The stent was then grasped and removed in its entirety, On the way into the bladder, prostate is large with significant lateral lobe hypertrophy and a high riding bladder neck. 4.5 cm long prostate. No distinct median lobe. Specimens Removed: None. Devices Implanted: None. Postoperative Information Discharge: The patient tolerated the procedure well and was subsequently discharged home, Follow-up 6 months with KUB. He is considering a repeat 24-hour urine/metabolic work-up. Normal [facility] Comment on above: Result Comment: Elec tronically Signed By: Ni OLIVARES MD\.br\Date and Time Signed: 12/20/22 16:29 EDT Outpatient Surgery Discharge Instructionon 12-20-2022 Outpatient Surgery Discharge Instruction [place] [id number] Patient Discharge Instructions PERSON INFORMATION Name: VICTORINO SMYTH Date of : 1940 Current Date: 12/20/2022 16:27:58 PHYSICIANS Admitting Physician: Ni OLIVARES MD Comment: Discharge Diagnosis: VICTORINO SMYTH has been given the following list of follow-up instructions, prescriptions, and patient education materials: IF UNABLE TO CONTACT YOUR PHYSICIAN AND YOU FEEL IT IS AN EMERGENCY, GO TO THE NEAREST EMERGENCY ROOM OR CALL 911 Follow up: With: Address: When: Ni OLIVARES [address], [address], [facility] [address] [place] [id number] [facility] (1) Within 6 months Comments: Call for followup appointment. When you call for your appointment, please ask my office to make arrangements for an abdominal x-ray to be obtained about 1 week prior to your appointment in 6 months. Push the fluids to keep the urine clear. Should you decide to proceed with a repeat 24-hour urine collection and blood work, please notify my office and we can make those arrangements as well. Have a great day. Comment: PATIENT EDUCATION INFORMATION Instructions: Cystoscopy with Stent Removal ? Voiding after the procedure: there may be some pain, burning, urgency, frequency and blood tinged urine following the procedure. These symptoms usually resolve within 2-5 days. Drink the amount of fluid it takes to keep the urine pink to yellow or clear in color. Drinking enough water and fluids will help to ease any discomfort after your procedure. ? If you are having problems that seem out of the ordinary, please call. ? If unable to contact your physician and you feel it is an emergency, go to the nearest emergency room or call 911 ? Diet ? you may resume your normal diet. ? Activity ? you may resume your normal activities ? Call if you have a fever over 100 degrees. I, VICTORINO SMYTH, have received the attached patient education materials/instructions and have verbalized understanding: May we do a follow up call? Yes No I was present when discharge instructions were given Patient Signature _ Date Clinican/Nurse Signature Date You may receive a survey from Chriss Brown asking you to rate your care experience. Your feedback is important and will help us understand what we do well and how we can improve the quality of care we provide to you, your loved ones and our community. It?s an honor to serve you. Thank you for choosing [facility] Normal [facility] Postoperative Documentson Postoperative Documents [id number]:127 Normal [facility] Calculus Analysison 12-09-19 23 Color (Stone) Olsen Invalid Interpretation Code [facility] Comment on above: Performed By: #### 2 [id number] #### [facility] [address] [place] [address] Composition Comment Invalid Interpretation Code [facility] Comment on above: Result Comment: Perc entage (Represents the % composition) Performed By: #### 2 [id number] #### [facility] [address] [place] [address] Disclaimer: Comment Invalid Interpretation Code [facility] Comment on above: Result Comment: This test was developed and its performance characteristics determined by [facility]. It has not been cleared or approved by the Food and Drug Administration. Performed at: [address] [id number] PhD Jarvis Bauman Performed By: #### 2 [id number] #### [facility] [address] [place] [address] Laboratory comment Dangelo (Report) Comment Invalid Interpretation Code [facility] Comment on above: Result Comment: Padmini gutierrez questions regarding Calculi Analysis contact [facility] at: [phone]. Performed By: #### 2 [id number] #### [facility] [address] [place] [address] Please Note: Comment Invalid Interpretation Code [facility] Comment on above: Result Comment: Calc salazar report will follow via computer, mail or manager digital ad operations delivery. Performed By: #### 2 [id number] #### [facility] [address] [place] [address] Size (Stone) [Entitic vol] 3x5 Invalid Interpretation Code [facility] Comment on above: Result Comment: Mult iple pieces received. Dimensions of the largest piece reported. Performed By: #### 2 [id number] #### [facility] [address] [place] [address] Specimen source subject Nom Comment Invalid Interpretation Code [facility] Comment on above: Result Comment: Righ t Ureter Performed By: #### 2 [id number] #### [facility] [address] [place] [address] Stone Photo Comment Invalid Interpretation Code [facility] Comment on above: Result Comment: Phot ograph will follow under a separate cover Performed By: #### 2 [id number] #### [facility] [address] [place] [address] Urate (Stone) [Mass fraction] 100 % Invalid Interpretation Code [facility] Comment on above: Performed By: #### 2 [id number] #### [facility] [address] [place] [address] Weight (Stone) 131 mg Invalid Interpretation Code [facility] Comment on above: Performed By: #### 2 [id number] #### [facility] [address] [place] [address] Pre-Certification Formon Pre-Certification Form [id number]#1.00CD:127 [facility] IntraOperative Documentson 0 12-06-2022 IntraOperative Documents [id number]#1.00CD:127 [facility] Consent for Anesthesiaon Consent for Anesthesia [id number]#1.00CD:127 [facility] Discharge Instructionson Discharge Instructions [id number]#1.00CD:127 [facility] IntraOperative Documentson 0 12-03-2022 IntraOperative Documents [id number]#1.00CD:127 [facility] IntraOperative Documents [id number]#1.00CD:127 [facility] Main OR Intraoperative Recor don 12-03-2022 Main OR Intraoperative Record [facility] Preoperative Documentson Preoperative Documents [id number]#1.00CD:127 [facility] Preoperative Documents [id number]#1.00CD:127 [facility] Preoperative Documents [id number]#1.00CD:127 [facility] Progress Note-Physicianon Progress Note-Physician Patient: VICTORINO SMYTH Age: 82 years Sex: Male : 1940 Associated Diagnoses: None Author: Ty Mendoza Jr, DO Postoperative Information Postoperative disposition: Postoperative disposition: To PACU. Optimetrix number: Optimetrix number [id number]. Anesthetic utilized: General. Health Status Allergies: Allergic Reactions (Selected) Severity Not Documented Ciprofloxacin- Rash. Levothyroxine- Mouth swelling. Liothyronine- Mouth swelling. Penicillin- Rash. Physical Examination Vital Signs 12/02/2022 13:35 EDT Heart Rate Monitored 68 bpm Respiratory Rate 18 br/min Systolic Blood Pressure 135 mmHg Diastolic Blood Pressure 70 mmHg Blood Pressure Location Right arm Mean Arterial Pressure, Cuff 92 mmHg SpO2 94 % 12/02/2022 12:10 EDT Heart Rate Monitored 62 bpm SpO2 94 % 12/02/2022 12:09 EDT Systolic Blood Pressure 126 mmHg Diastolic Blood Pressure 63 mmHg Mean Arterial Pressure, Monitered 84 mmHg 12/02/2022 12:08 EDT Respiratory Rate 20 br/min 12/02/2022 12:05 EDT Temperature Temporal Artery 36.7 DegC Heart Rate Monitored 59 bpm LOW Respiratory Rate Monitored 17 br/min Systolic Blood Pressure 131 mmHg Diastolic Blood Pressure 64 mmHg Blood Pressure Location Right arm Mean Arterial Pressure, Cuff 86 mmHg SpO2 93 % Pain Assessment: Controlled. General: Awake, Alert, Appropriate. Respiratory: Adequate air exchange. Cardiovascular: Stable, Normal peripheral perfusion. Neurological: Normal sensory function, Normal motor function. Assessment Anesthetic outcome No anesthetic complications noted. Adequate pain relief. able to void without difficulty, able to ambulate with assist, tolerating PO intake, no N/V. Review / Management Condition: Stable. Plan Transfer/Discharge: Transfer/Discharge Discharge when meets criteria ( To home ). Normal [facility] Comment on above: Result Comment: Elec tronically Signed By: Ty Mendoza Jr, DO\.br\Date and Time Signed: 12/03/22 15:12 EDT Progress Note-Physician Patient: VICTORINO SMYTH Age: 82 years Sex: Male : 1940 Associated Diagnoses: None Author: Ty Mendoza Jr, DO Preoperative Information Anesthesia Preop Info: Time patient last ate or drank 12/02/2022 00:00:00. Anesthesia history: Patient history: None. Family history+: None. Informed consent: Signed by patient. Re-evaluation prior to induction: Initial evaluation reviewed: No significant change. Review of Systems Eye: Negative except as documented in history of present illness. Ear/Nose/Mouth/Throat: Negative except as documented in history of present illness. Respiratory: Negative except as documented in history of present illness. Cardiovascular: Negative except as documented in history of present illness. Musculoskeletal: Negative except as documented in history of present illness. Neurologic: Negative except as documented in history of present illness. Health Status Allergies: Allergic Reactions (Selected) Severity Not Documented Ciprofloxacin- Rash. Levothyroxine- Mouth swelling. Liothyronine- Mouth swelling. Penicillin- Rash. Problem list: All Problems Acute kidney failure / SNOMED CT 93697705 / Confirmed BPH with urinary obstruction / SNOMED CT 0570342967 / Confirmed Chronic obstructive pulmonary disease (COPD) / SNOMED CT 81793198 / Confirmed Coronary artery disease / SNOMED CT 01692385 / Confirmed Anticoagulated / SNOMED CT 075273336 / Confirmed Erectile dysfunction / SNOMED CT 5575135355 / Confirmed Flank pain / SNOMED CT 589267013 / Confirmed H/O: hypothyroidism / SNOMED CT 577783169 / Confirmed Hydronephrosis / SNOMED CT 13178390 / Confirmed Hydronephrosis with ureteral calculus / SNOMED CT 5093138210 / Confirmed Hyperlipidemia / SNOMED CT 90751656 / Confirmed Hyperplastic colon polyp / SNOMED CT 1006453496 / Confirmed Hypertension / SNOMED CT 3069837261 / Confirmed Kidney stone / SNOMED CT 033784918 / Confirmed Prostate cancer / SNOMED CT 3071968642 / Confirmed Myocardial infarct / SNOMED CT 26861973 / Confirmed BPH associated with nocturia / SNOMED CT 9589143478 / Confirmed Occult blood in stools / SNOMED CT 00268173 / Confirmed Postprandial diarrhea / SNOMED CT 97901801 / Confirmed Elevated PSA / SNOMED CT 1188628018 / Confirmed Urinary retention / SNOMED CT 310133639 / Confirmed Rheumatoid arthritis / SNOMED CT 401701566 / Confirmed DM (diabetes mellitus), type 2 / SNOMED CT 188674183 / Confirmed Ureteral stone / SNOMED CT 11670689 / Confirmed Histories Procedure history: ESWL of kidney (17443047) on 10/07/2022 at 82 Years. Transurethral resection of prostate (587758872) on 08/01/2019 at 79 Years. Biopsy of prostate (581501811) on 07/04/2019 at 78 Years. cystoscopy, bilateral, ureteroscopy, laser lithotripsy on 06/27/2019 at 78 Years. TRIGGER FINGER RELEASE. Neuroplasty and/or transposition; median nerve at carpal tunnel (01501). Percutaneous transluminal coronary angioplasty; single major coronary artery or branch (59211). Patient has a coronary artery stent (Peri2) (4561F). colonoscopy with polypectomy. ear surgery. Social History Social & Psychosocial Habits Alcohol 06/21/2019 Use: Current Frequency: 1-2 times per year 09/14/2022 Risk Assessment: Denies Alcohol Use Substance Abuse 04/10/2019 Risk Assessment: Denies Substance Abuse Tobacco 06/21/2019 Tobacco Use: Former smoker, quit more Smokeless tobacco use: Never Type: Cigarettes Stopped at age: 40 Years 03/24/2020 Tobacco Use: Former smoker, quit more 08/18/2020 Tobacco Use: Former smoker, quit more 11/18/2022 Tobacco Use: Former smoker, quit more Type: Cigarettes Comment: quit in 1978 - 11/18/2022 11:04 - [employer] [facility] . Physical Examination Airway: Mallampati classification: II (soft palate, fauces, uvula visible). Respiratory: adequate air exchange. Cardiovascular: Regular rhythm. Plan [place] [employer] (ASA) physical status classification: Class III. Anesthetic Preoperative Plan: Anesthesia General. Normal [facility] Comment on above: Result Comment: Elec tronically Signed By: Reji Hidalgo DO, Ty Khanna\.br\Date and Time Signed: 12/03/22 08:21 EDT Capillary Glucose POCon Glucose [Mass/Vol] 82 mg/dL Normal 55-99 [facility] Comment on above: Result Comment: Jackelin quach RN/ Performed By: #### 2 [id number] #### [facility] [address] [place] [address] Consent for Procedure/Surger yon 12-02-2022 Consent for Procedure/Surgery [id number]#1.00CD:127 Normal [facility] Consent for Treatmenton Consent for Treatment [id number]#1.00CD:127 Normal [facility] Discharge Instructionson Discharge Instructions VICTORINO SMYTH :1940 Visit Date:12/02/2022 Inpatient Discharge Instructions Your Care Team Admitting Physician - Ni OLIVARES MD Referring Physician - Ni OLIVARES MD Reason for Your Visit KIDNEY STONE Tests Performed Calculi Analysis Urinary -- Results Pending -- Capillary Glucose POC XR Abdomen 1 View XR Fluoroscopy Up to 1 Hour -- Results Pending -- Please visit your patient portal for your results or contact your primary care physician. This Is Your Medications List Non-Formulary Medication (Magnesium) albuterol (Ventolin Diskus) amlodipine (amLODIPine 10 mg Tab) aspirin atorvastatin (atorvastatin 80 mg Tab) cholecalciferol (Vitamin D3) doxycycline (doxycycline hyclate 100 mg Cap) glimepiride (glimepiride 4 mg Tab) glucosamine (glucosamine 500 mg Cap) isosorbide mononitrate (isosorbide mononitrate 60 mg ER Tab) ketoconazole levothyroxine (levothyroxine 50 mcg (0.05 mg) Tab) liothyronine (liothyronine 5 mcg Tab) lisinopril (lisinopril 10 mg Tab) metoprolol (metoprolol 50 mg ER Tab) multivitamin (Vitamin B Complex oral capsule) nitroglycerin pioglitazone (pioglitazone 15 mg Tab) ranolazine (ranolazine 500 mg oral ER Tab) sildenafil (Viagra 100 mg Tab) sitagliptin (Januvia 100 mg Tab) tiotropium (Spiriva Respimat 1.25 mcg/inh inhalation aerosol) triamcinolone (triamcinolone acetonide) Procedure History ESWL of kidney (10/07/2022), Transurethral resection of prostate (08/01/2019), Biopsy of prostate (07/04/2019), cystoscopy, bilateral, ureteroscopy, laser lithotripsy (06/27/2019), colonoscopy with polypectomy, ear surgery, Neuroplasty and/or transposition; median nerve at carpal tunnel, Patient has a coronary artery stent (Peri2), Percutaneous transluminal coronary angioplasty; single major coronary artery or branch, TRIGGER FINGER RELEASE. What to do next Instructions From Your Doctor Event Name Event Result Discharge Activity Arrange for a responsible adult supervision for 24 hours, Expect mild pain, Expect minimal amount of drainage and/or bleeding Discharge Restrictions No driving, Do not operate machinery or tools, Do not make important decisions for 24 hours, Do not drink alcoholic beverages for 24 hours Discharge Diet(s) Calorie Controlled- 2000 Calorie Diet Call Your Doctor For Persistent or heavy bleeding, Temperature above 101.5 degrees Discharge Instructions Discharge Instructions New Follow Up Appointments after Discharge Follow Up with Ni OLIVARES When: Comments: Call for followup appointment Where: [facility] [employer] [facility]) [address] [address]- Business (1) Medications What How Much When Instructions Next Dose New doxycycline (doxycycline hyclate 100 mg Cap) 1 Capsules By Mouth 2 times a day Duration: 5 Days Pickup at [id number] Unchanged albuterol (Ventolin Diskus) 2 Puffs Inhalation Every 4 hours as needed for Shortness of breath or wheezing Unchanged amlodipine (amLODIPine 10 mg Tab) 1 Tablets By Mouth Every day Unchanged aspirin 81 Milligram By Mouth Every day Unchanged atorvastatin (atorvastatin 80 mg Tab) 1 Tablets By Mouth Every day Unchanged cholecalciferol (Vitamin D3) 50 Microgram By Mouth Every day Unchanged glimepiride (glimepiride 4 mg Tab) 1 Tablets By Mouth 2 times a day Unchanged glucosamine (glucosamine 500 mg Cap) 1 Capsules By Mouth 2 times a day Unchanged isosorbide mononitrate (isosorbide mononitrate 60 mg ER Tab) 2 Tablets By Mouth Once a day (in the morning) Unchanged ketoconazole Topical 2 times a day Unchanged levothyroxine (levothyroxine 50 mcg (0.05 mg) Tab) 1 Tablets By Mouth Every day Unchanged liothyronine (liothyronine 5 mcg Tab) 1 Tablets By Mouth Every day Unchanged lisinopril (lisinopril 10 mg Tab) 2 Tablets By Mouth Every day Unchanged metoprolol (metoprolol 50 mg ER Tab) 1 Tablets By Mouth 2 times a day Unchanged multivitamin (Vitamin B Complex oral capsule) 1 Capsules By Mouth Every day Unchanged nitroglycerin 0.4 Milligram Sublingual Every 5 minutes as needed for Chest pain Unchanged Non-Formulary Medication (Magnesium) one tab By Mouth Every day Unchanged pioglitazone (pioglitazone 15 mg Tab) 1 Tablets By Mouth Every day Unchanged ranolazine (ranolazine 500 mg oral ER Tab) 1 Tablets By Mouth Every day Unchanged sildenafil (Viagra 100 mg Tab) 1 Tablets By Mouth As Directed 1 hour before sexual activity Unchanged sitagliptin (Januvia 100 mg Tab) 1 Tablets By Mouth Every day Unchanged tiotropium (Spiriva Respimat 1.25 mcg/ inh inhalation aerosol) 2 Puffs Inhalation Every day as needed for Shortness of breath or wheezing Unchanged triamcinolone (triamcinolone acetonide) Topical 2 times a day as needed for Itching Pharmacy Information [id number]: [address], [place] [id number] [phone] Allergies ciprofloxacin (Rash) levothyroxine (Mouth swelling) liothyronine (Mouth (more content not included)... Normal [facility] Comment on above: Result Comment: Elec tronically Signed By: Shae BRITO, Jazmin Eli\.ruba\Date and Time Signed: 12/02/22 12:25 EDT H&P Updateon 12-02-2022 H&P Update [id number]#1.00CD:127 Normal [facility] Inpatient Patient Summaryon 12-02-2022 Inpatient Patient Summary [address] [address] [facility] Clinical Discharge Instructions PERSON INFORMATION Name: VICTORINO SMYTH PHYSICIANS Admitting Physician: Ni OLIVARES MD Attending Physician: Ni OLIVARES MD PCP: Tray Alfaro MD Discharge Diagnosis: Comment: PATIENT EDUCATION INFORMATION Instructions: [id number] Utereroscopy,Lithotripsy, Stone Extraction, Stent Placement (Custom) Medication Leaflets: Follow up: With: Address: When: Ni OLIVARES [address] [place] [address], [address], [place] [id number] [facility] (1) Comments: Call for followup appointment MEDICATION LIST New Medications [id number], [address], [place] [id number], [phone] doxycycline (doxycycline hyclate 100 mg Cap) 1 Capsules By Mouth 2 times a day for 5 Days. Refills: 0. Medications to Continue with No Changes Other Medications albuterol (Ventolin Diskus) 2 Puffs Inhalation every 4 hours as needed Shortness of breath or wheezing. amlodipine (amLODIPine 10 mg Tab) 1 Tablets By Mouth every day. aspirin 81 Milligram By Mouth every day. atorvastatin (atorvastatin 80 mg Tab) 1 Tablets By Mouth every day. cholecalciferol (Vitamin D3) 50 Microgram By Mouth every day. glimepiride (glimepiride 4 mg Tab) 1 Tablets By Mouth 2 times a day. glucosamine (glucosamine 500 mg Cap) 1 Capsules By Mouth 2 times a day. isosorbide mononitrate (isosorbide mononitrate 60 mg ER Tab) 2 Tablets By Mouth once a day (in the morning). ketoconazole Topical 2 times a day., as needed for yeast infection levothyroxine (levothyroxine 50 mcg (0.05 mg) Tab) 1 Tablets By Mouth every day. liothyronine (liothyronine 5 mcg Tab) 1 Tablets By Mouth every day. lisinopril (lisinopril 10 mg Tab) 2 Tablets By Mouth every day. metoprolol (metoprolol 50 mg ER Tab) 1 Tablets By Mouth 2 times a day. multivitamin (Vitamin B Complex oral capsule) 1 Capsules By Mouth every day. nitroglycerin 0.4 Milligram Sublingual every 5 minutes as needed Chest pain. Non-Formulary Medication (Magnesium) one tab By Mouth every day., prophylaxis pioglitazone (pioglitazone 15 mg Tab) 1 Tablets By Mouth every day. ranolazine (ranolazine 500 mg oral ER Tab) 1 Tablets By Mouth every day., heart sildenafil (Viagra 100 mg Tab) 1 Tablets By Mouth As Directed. 1 hour before sexual activity. Refills: 2. sitagliptin (Januvia 100 mg Tab) 1 Tablets By Mouth every day. tiotropium (Spiriva Respimat 1.25 mcg/inh inhalation aerosol) 2 Puffs Inhalation every day as needed Shortness of breath or wheezing. triamcinolone (triamcinolone acetonide) Topical 2 times a day as needed Itching., apply to chin, and forhead Comment: Isamar [facility] Main OR PACU I Recordon Main OR PACU I Record PACU Phase I Docum ent Type FT Summary Primary Physician: Ni OLIVARES MD Finalized Date/Time: 12/02/22 12:58:10 Pt. Name: VICTORINO SMYTH Bryan Chatman./Sex: 1940 Male Med Rec #: [id number] Physician: Ni OLIVARES MD Financial #: [id number] Pt. Type: A Room/Bed: [facility] Admit/Disch: 12/02/22 09:31:57 - Institution: Case Times PACU I FT Pre-Care Text: Identifies barriers to communication and implements measures to provide psychological support Develops individualized plan of care, and ensures continuity of care Maintains patient's dignity and privacy, and maintains patient confidentiality Identifies and reports philosophical, cultural, and spiritual beliefs and values Identifies individual values and wishes concerning care Implements aseptic technique, and administers prescribed antibiotic therapy and immunizing agents as ordered Evaluates postoperative tissue perfusion Implements thermoregulation measures, and monitors body temperature Evaluates postoperative respiratory status Evaluates postoperative cardiac status Evaluates postoperative neurological status Assesses pain control, collaborated in initiating patient-controlled analgesia and implements alternative methods of pain control Verifies allergies, administers prescribed medications and solutions, evaluates response to medications Entry 1 In PACU I 12/02/22 11:36:00 Discharge from PACU 12/02/22 12:06:00 I Outcomes Met? Yes Last Modified By: Piedad Blanco RN 12/02/22 12:57:49 Post-Care Text: The patient demonstrates knowledge of the expected response to the operative or invasive procedure The patient's care is consistent with the individualized perioperative plan of care The patient's right to privacy is maintained The patient's value system, lifestyle, ethnicity, and culture are considered, respected, and incorporated into the perioperative plan of care The patient participates in decisions affecting his or her perioperative plan of care The patient is free from signs and symptoms of infection The patient has wound/tissue perfusion consistent with or improved from baseline levels established preoperatively The patient is at or returning to normothermia at the conclusion of the immediate postoperative period The patient's respiratory function is consistent with or improved from baseline levels established preoperatively The patient's cardiovascular status is consistent with or improved from baseline levels established preoperatively The patient's cardiovascular status is consistent with or improved from baseline levels established preoperatively The patient demonstrates and/or reports adequate pain control throughout the perioperative period The patient received appropriate medication(s), safely administered during the perioperative period Acuity Level PACU I FT Entry 1 Start Time 12/02/22 11:36:00 Stop Time 12/02/22 12:06:00 Acuity Level Acuity Level I Last Modified By: Piedad Blanco RN 12/02/22 12:58:05 Finalized By: Piedad Blanco RN Document Signatures Signed By: Piedad Blanco RN 12/02/22 12:58 Normal [facility] Main OR PACU II Recordon Main OR PACU II Record PACU Phase II Doc ument Type FT Summary Primary Physician: Ni OLIVARES MD Finalized Date/Time: 12/02/22 13:45:57 Pt. Name: SMYTHVICTORINO./Sex: 1940 Male Med Rec #: [id number] Physician: Ni OLIVARES MD Financial #: [id number] Pt. Type: A Room/Bed: [facility] Admit/Disch: 12/02/22 09:31:57 - Institution: Case Times PACU II FT Pre-Care Text: Identifies barriers to communication and implements measures to provide psychological support and determines knowledge level Develops individualized plan of care, and ensures continuity of care Maintains patient's dignity and privacy, and maintains patient confidentiality Identifies and reports philosophical, cultural, and spiritual beliefs and values Identifies individual values and wishes concerning care administers prescribed antibiotic therapy and immunizing agents as ordered, Evaluates postoperative tissue perfusion Implements thermoregulation measures, and monitors body temperature Evaluates postoperative respiratory status Evaluates postoperative cardiac status Evaluates postoperative neurological status Assesses pain control, collaborated in initiating patient-controlled analgesia and implements alternative methods of pain control Verifies allergies, administers prescribed medications and solutions, evaluates response to medications Entry 1 In PACU II 12/02/22 12:10:00 Discharge from PACU 12/02/22 13:45:00 II Outcomes Met? Yes Last Modified By: Jazmin Kaufman RN 12/02/22 13:45:56 Post-Care Text: The patient demonstrates knowledge of the expected response to the operative or invasive procedure The patient's care is consistent with the individualized perioperative plan of care The patient's right to privacy is maintained The patient's value system, lifestyle, ethnicity, and culture are considered, respected, and incorporated into the perioperative plan of care The patient participates in decisions affecting his or her perioperative plan of care. The patient is free from signs and symptoms of infection The patient has wound/tissue perfusion consistent with or improved from baseline levels established preoperatively The patient is at or returning to normothermia at the conclusion of the immediate postoperative period The patient's respiratory function is consistent with or improved from baseline levels established preoperatively The patient's cardiovascular status is consistent with or improved from baseline levels established preoperatively The patient's neurological status is consistent with or improved from baseline levels established preoperatively The patient demonstrates and/or reports adequate pain control throughout the perioperative period The patient received appropriate medication(s), safely administered during the perioperative period Finalized By: Jazmin Kaufman RN Document Signatures Signed By: Jazmin Kaufman RN 12/02/22 13:45 Normal [facility] Main OR Preoperative Recordo n 12-02-2022 Main OR Preoperative Record PreOp Document Type FT Summary Primary Physician: Ni OLIVARES MD Finalized Date/Time: 12/02/22 11:00:33 Pt. Name: SMYTHVICTORINO./Sex: 1940 Male Med Rec #: [id number] Physician: Ni OLIVARES MD Financial #: [id number] Pt. Type: Room/Bed: [place] [address] Admit/Disch: 12/02/22 09:31:57 - Institution: Case Times PreOp FT Pre-Care Text: Verifies consent for planned procedure, identifies individual values and wishes concerning care, includes family members in perioperative teaching Entry 1 Patient Times. In Pre Surgery 12/02/22 09:25:00 Out Pre Surgery 12/02/22 10:31:00 Outcomes Met? Yes Last Modified By: Soraya Borrego RN 12/02/22 11:00:31 Post-Care Text: The patient participates in decisions affecting his or her perioperative plan of care Finalized By: Soraya Borrego RN Document Signatures Signed By: Soraya Borrego RN 12/02/22 11:00 Normal [facility] Monitor Recordon 12-02-2022 Monitor Record [id number]#[id number]:127 Normal [facility] Monitor Record [id number]:127 Normal [facility] Operative Reporton 3 Operative Report Patient: SHERYL SMYTH Age: 82 years Sex: Male : 1940 Associated Diagnoses: None Author: Ni OLIVARES MD Postoperative Information Date/ Time: 12/02/2022 11:45:00 Postoperative Diagnosis: Right renal calculi, status post ESWL. Performed by: Ni Olivares MD. Findings: Procedure: Cystoscopy Right ureteral stent removal Right ureteroscopy/nephroscopy Basket extraction multiple right renal calculi fragments Replacement right double-J ureteral stent under fluoroscopic guidance Anesthesia: General, LMA, Dr. Mnedoza, 2% Xylocaine jelly per urethra Indications: This is an 82-year-old white male status post cystoscopy right stent and ESWL of a 1.5 cm stone which had been at the right ureteropelvic junction. Postoperative KUB as well as a KUB today is difficult to interpret in terms of stone fragmentation in size. After full discussion in the outpatient setting the patient elected to proceed with my recommended cystoscopic and retrograde ureteroscopic and nephroscopic evaluation of the kidney and removal of fragments with the possibility of stent replacement. He understands risk of bleeding, infection, stent pain, heart and lung problems under anesthesia, among others. He wishes to proceed. He did receive preoperative antibiotics and he does have sequential compression devices in place and functional bilateral lower extremities throughout the case. Procedure: The patient was brought back to the operating room and a timeout was performed. All were in agreement with the operative plan. He is identified appropriately. After the successful induction of general anesthesia he is placed in a modified dorsolithotomy position and prepped in usual fashion with Betadine solution. He is draped appropriately. 2% Xylocaine jelly placed per urethra. A well-lubricated 22 Nigerien is urethroscope with 30 degree lens then passed into the bladder without difficulty. Anterior urethra is within normal limits. Prostate is obstructing with significant lateral lobe hypertrophy and a high riding bladder neck. 4 cm long gland. Once into the bladder panendoscopy reveals no tumors, no stones. The stent is seen coming from the right orifice. The left orifice is normal. No suspicious lesions. Moderate trabeculation of the bladder. Two .035 Glidewire was then passed in retrograde fashion up the right ureter alongside the stent and the stent is grasped with an alligator forceps removed and discarded. Over one of the wires then after removal of the cystoscope, the ureteral access sheath was passed over 1 wire up to the level of the ureteropelvic junction and the inner trocar portion was removed. Flexible digital ureteroscopy followed. Through a tedious procedure endoscopy of the entire upper collecting system of the kidney was accomplished. Multiple fragments of stone were identified and were basketed free. Approximately 15 fragments were sent. The fragments that remain are actually too small to engage. At this point endoscopy of the entire ureter was carried down to the level of the ureterovesical junction and no further stones identified. Safety wire was left in place. Due to the amount of manipulation I elected to replace the stent. Cystoscope was backloaded over the wire and a 4.7 Nigerien Bard inlay double-J stent is passed into the kidney. Wire removed and there is good curl within the kidney and the urinary bladder. Bladder emptied scope removed and the procedure was terminated. He tolerates it well. He is transferred back to PACU in satisfactory condition, stable vital signs. Plan will be for discharge home with plans to follow-up for cystoscopy and stent removal within the next couple weeks. Discussed all this with his family postoperatively. Prescription sent to pharmacy for doxycycline.. Estimated Blood Loss: 2 ml. Complications: None. Anesthesia type: General. Normal [facility] Comment on above: Result Comment: Elec tronically Signed By: Ni OLIVARES MD\.br\Date and Time Signed: 12/02/22 11:51 EDT Outpatient Surgery Discharge Instructionon 12-02-2022 Outpatient Surgery Discharge Instruction [place] [id number] Patient Discharge Instructions PERSON INFORMATION Name: VICTORINO SMYTH Date of : 1940 Current Date: 12/02/2022 11:45:41 PHYSICIANS Admitting Physician: Ni OLIVARES MD Discharge Diagnosis: VICTORINO SMYTH has been given the following list of follow-up instructions, prescriptions, and patient education materials: PATIENT FOLLOW-UP INFORMATION Diet: Calorie Controlled- 2000 Calorie Diet Discharge Activity: Arrange for a responsible adult supervision for 24 hours, Expect mild pain, Expect minimal amount of drainage and/or bleeding Discharge Restrictions: No driving, Do not operate machinery or tools, Do not make important decisions for 24 hours, Do not drink alcoholic beverages for 24 hours Call Your Doctor For: Persistent or heavy bleeding, Temperature above 101.5 degrees IF UNABLE TO CONTACT YOUR PHYSICIAN AND YOU FEEL IT IS AN EMERGENCY, GO TO THE NEAREST EMERGENCY ROOM OR CALL 911 IHAJA BERNARD M, have received the attached patient education materials/instructions and have verbalized understanding: May we do a follow up call? Yes No I was present when discharge instructions were given ____ Patient Signature _ Date Clinican/Nurse Signature Date Follow up: With: Address: When: Ni OLIVARES [address] [place] [address], [address], [place] [id number] [facility] (1) Comments: Call for followup appointment Pharmacy Information: You may receive a survey from [employer] asking you to rate your care experience. Your feedback is important and will help us understand what we do well and how we can improve the quality of care we provide to you, your loved ones and our community. It?s an honor to serve you. Thank you for choosing [facility] HERE ARE THE MEDICATION CHANGES THAT OCCURRED DURING YOUR HOSPITAL STAY New Medications [id number], [address], [place] [id number], [phone] doxycycline (doxycycline hyclate 100 mg Cap) 1 Capsules By Mouth 2 times a day for 5 Days. Refills: 0. Medications to Continue with No Changes Other Medications albuterol (Ventolin Diskus) 2 Puffs Inhalation every 4 hours as needed Shortness of breath or wheezing. amlodipine (amLODIPine 10 mg Tab) 1 Tablets By Mouth every day. aspirin 81 Milligram By Mouth every day. atorvastatin (atorvastatin 80 mg Tab) 1 Tablets By Mouth every day. cholecalciferol (Vitamin D3) 50 Microgram By Mouth every day. glimepiride (glimepiride 4 mg Tab) 1 Tablets By Mouth 2 times a day. glucosamine (glucosamine 500 mg Cap) 1 Capsules By Mouth 2 times a day. isosorbide mononitrate (isosorbide mononitrate 60 mg ER Tab) 2 Tablets By Mouth once a day (in the morning). ketoconazole Topical 2 times a day., as needed for yeast infection levothyroxine (levothyroxine 50 mcg (0.05 mg) Tab) 1 Tablets By Mouth every day. liothyronine (liothyronine 5 mcg Tab) 1 Tablets By Mouth every day. lisinopril (lisinopril 10 mg Tab) 2 Tablets By Mouth every day. metoprolol (metoprolol 50 mg ER Tab) 1 Tablets By Mouth 2 times a day. multivitamin (Vitamin B Complex oral capsule) 1 Capsules By Mouth every day. nitroglycerin 0.4 Milligram Sublingual every 5 minutes as needed Chest pain. Non-Formulary Medication (Magnesium) one tab By Mouth every day., prophylaxis pioglitazone (pioglitazone 15 mg Tab) 1 Tablets By Mouth every day. ranolazine (ranolazine 500 mg oral ER Tab) 1 Tablets By Mouth every day., heart sildenafil (Viagra 100 mg Tab) 1 Tablets By Mouth As Directed. 1 hour before sexual activity. Refills: 2. sitagliptin (Januvia 100 mg Tab) 1 Tablets By Mouth every day. tiotropium (Spiriva Respimat 1.25 mcg/inh inhalation aerosol) 2 Puffs Inhalation every day as needed Shortness of breath or wheezing. triamcinolone (triamcinolone acetonide) Topical 2 times a day as needed Itching., apply to chin, and forhead PATIENT EDUCATION INFORMATION Instructions: [facility] [place], [place] Dr. Ni Omalley Post-operative Instructions for Ureteroscopy, Laser Lithotripsy, Stone Extraction and Stent Placement There are no incisions or dressings to be concerned with, as the procedure was performed inside the urinary system. For 24 hours after surgery: ? No driving or operating machinery ? Do not make important decisions ? Do not consume alcohol, sleeping pills Stent Placement You may have a stent which spans the distance between your bladder and your kidney, allowing urine to pass through. It prevents blockage from swelling, kidn (more content not included)... Normal [facility] Patient Education - Texton 0 12-02-2022 Patient Education - Text Pulmonary Medicine How to Use a Metered Dose Inhaler A metered dose inhaler (MDI) is a handheld device filled with medicine that must be breathed into the lungs (inhaled). The medicine is delivered by pushing down on a metal canister. This releases a preset amount of spray and mist through the mouth and into the lungs. Each MDI canister holds a certain number of doses (puffs). Using a spacer with a metered dose inhaler may be recommended to help get more medicine into the lungs. A spacer is a plastic tube that connects to the MDI on one end and has a mouthpiece on the other end. A spacer holds the medicine in the tube for a short time. This allows more medicine to be inhaled. The MDI can be used to deliver many kinds of inhaled medicines, including: ? Quick relief or rescue medicines, such as bronchodilators. ? Controller medicines, such as corticosteroids. What are the risks? ? If you do not use your inhaler correctly, medicine might not reach your lungs to help you breathe. ? If you do not have enough strength to push down the canister to make it spray, ask your health care provider for ways to help. ? The medicine in the MDI may cause side effects, such as: ? Mouth sores (thrush). ? Cough. ? Hoarseness. ? Shakiness. ? Headache. Supplies needed: ? A metered dose inhaler. ? A spacer, if recommended. How to use a metered dose inhaler without a spacer 1. Remove the cap from the inhaler. 2. If you are using the inhaler for the first time, shake it for 5 seconds, turn it away from your face, then release 4 puffs into the air. This is called priming. 3. Shake the inhaler for 5 seconds. 4. Position the inhaler so the top of the canister faces up. 5. Put your index finger on the top of the medicine canister. Support the bottom of the inhaler with your thumb. 6. Breathe out normally and as completely as possible, away from the inhaler. 7. Either place the inhaler between your teeth and close your lips tightly around the mouthpiece, or hold the inhaler 1?2 inches (2.5?5 cm) away from your open mouth. Keep your tongue down out of the way. If you are unsure which technique to use, ask your health care provider. 8. Press the canister down with your index finger to release the medicine. Inhale deeply and slowly through your mouth until your lungs are completely filled. Do not breathe in through your nose. Inhaling should take 4?6 seconds. 9. Hold the medicine in your lungs for 5?10 seconds (10 seconds is best). This helps the medicine get into the small airways of your lungs. 10. Remove the inhaler from your mouth, turn your head, and breathe out normally. 11. Wait about 1 minute between puffs or as directed. Then repeat steps 3?10 until you have taken the number of puffs that your health care provider directed. 12. Put the cap on the inhaler. 13. If you are using a steroid inhaler, rinse your mouth with water, gargle, and spit out the water. Do not swallow the water. How to use a metered dose inhaler with a spacer 1. Remove the cap from the inhaler. 2. If you are using the inhaler for the first time, shake it for 5 seconds, turn it away from your face, then release 4 puffs into the air. This is called priming. 3. Shake the inhaler for [address] the open end of the spacer onto the inhaler mouthpiece. 5. Position the inhaler so the top of the canister faces up and the spacer mouthpiece faces you. 6. Put your index finger on the top of the medicine canister. Support the bottom of the inhaler and the spacer with your thumb. 7. Breathe out normally and as completely as possible, away from the spacer. 8. Place the spacer between your teeth and close your lips tightly around it. Keep your tongue down out of the way. 9. Press the canister down with your index finger to release the medicine, then inhale deeply and slowly through your mouth until your lungs are completely filled. Do not breathe in through your nose. Inhaling should take 4?6 seconds. 10. Hold the medicine in your lungs for 5?10 seconds (10 seconds is best). This helps the medicine get into the small airways of your lungs. 11. Remove the spacer from your mouth, turn your head, and breathe out normally. 12. Wait about 1 minute between puffs or as directed. Then repeat steps 3?11 until you have taken the number of puffs that your health care provider directed. 13. Remove the spacer from the inhaler and put the cap on the inhaler. 14. If you are using a steroid inhaler, rinse your mouth with water, gargle, and spit out the water. Do not swallow the water. Follow these instructions at home: Caring for your MDI ? Store your inhaler at or near room temperature. A cold MDI will not work properly. ? Follow directions on the package insert for care and cleaning of your MDI an (more content not included)... Normal [facility] XR Abdomen 1 Viewon 12-03-19 23 XR Abdomen 1 View Exam Date/Time: 12/02/2022 09:43 EDT Reason for Exam: Kidney stone Report IMPRESSION: THERE ARE NO ACUTE CHANGES. THE RIGHT URETERAL STENT REMAINS IN PLACE. CLINICAL HISTORY: Kidney stone COMPARISON: KUB from 10/07/2022 KUB FINDINGS: There are no distended loops of bowel. There is no evidence of obstruction. There is a right ureteral stent in place, unchanged since the prior study. There is increased sclerosis of the left side of the sacrum, similar to prior studies. Ordering Provider: Ni OLIVARES FINAL REPORT Dictated: 12/02/2022 10:15 am Carl Arriola MD, V. Signed (Electronic Signature): 12/02/2022 10:15 am Signed by: Carl Arriola MD, V. Transcribed by: HODA Technologist: TANIYA Technical Comments Radiation Dose: Ka,r in mGy = na DAP = na [facility] Consultation Noteon 11-29-19 Consultation Note [id number]:127 [facility] Outside Recordson 11-24-2022 Outside Records [id number]:127 [facility] C Urineon 11-20-2022 Bacteria identified Cx Nom (U) Microbiology PROCEDURE: Urine Culture [R1] SOURCE: U CleanCatch BODY SITE: COLLECTED DATE/TIME: 11/18/2022 11:28 EDT RECEIVED DATE/TIME: 11/18/2022 12:27 EDT START DATE/TIME: 11/18/2022 12:27 EDT FREE TEXT SOURCE: Ni OLIVARES MD, MD, Gregory P FINAL REPORTS Final Report [] Verified Date/Time: 11/20/2022 06:45 EDT 1,000 cfu/ml Mixed skin contaminants Performing Locations R1: This test was performed at: [facility], [address] [place] [address], [id number] , [place], [facility] Comment on above: Performed By: #### 1 [id number] ####[facility] [address] [place] [address] Albuminon 11-18-2022 Albumin [Mass/Vol] 4.0 g/dL Normal 3.3-5.0 [facility] Comment on above: Performed By: #### 2 [id number], [id number], [id number], [id number], [id number], [id number] ####[facility] [address] [place] [address] Auto Diffon 11-18-2022 Basophils/100 WBC (Bld) 0.2 % Normal 0.0-2.0 [facility] Comment on above: Order Comment: Order Added by Discern Expert. Performed By: #### 2 [id number] #### [facility] [address] [place] [address] Basophils/Leukocytes Auto (Bld) [Pure # fraction] 0.0 E9/L Normal 0.0-0.2 [facility] Comment on above: Order Comment: Order Added by Discern Expert. Performed By: #### 2 [id number] #### [facility] [address] [place] [address] Eosinophils/100 WBC (Bld) 0.1 % Normal 0.0-8.0 [facility] Comment on above: Order Comment: Order Added by Discern Expert. Performed By: #### 2 [id number] #### [facility] [address] [place] [address] Eosinophils/Leukocytes Auto (Bld) [Pure # fraction] 0.0 E9/L Normal 0.0-0.5 [facility] Comment on above: Order Comment: Order Added by Discern Expert. Performed By: #### 2 [id number] #### [facility] [address] [place] [address] Lymphocytes/100 WBC (Bld) 8.6 % Low 14.0-50.0 [facility] Comment on above: Order Comment: Order Added by Discern Expert. Performed By: #### 2 [id number] #### [facility] [address] [place] [address] Lymphocytes/Leukocytes Auto (Bld) [Pure # fraction] 0.9 E9/L Low 1.0-4.0 [facility] Comment on above: Order Comment: Order Added by Discern Expert. Performed By: #### 2 [id number] #### [facility] [address] [place] [address] Monocytes/100 WBC (Bld) 7.1 % Normal 4.0-14.0 [facility] Comment on above: Order Comment: Order Added by Discern Expert. Performed By: #### 2 [id number] #### [facility] [address] [place] [address] Monocytes/Leukocytes Auto (Bld) [Pure # fraction] 0.7 E9/L Normal 0.2-1.0 [facility] Comment on above: Order Comment: Order Added by Discern Expert. Performed By: #### 2 [id number] #### [facility] [address] [place] [address] Neutrophils/100 WBC (Bld) 84.0 % High 36.0-75.0 [facility] Comment on above: Order Comment: Order Added by Discern Expert. Performed By: #### 2 [id number] #### [facility] [address] [place] [address] Neutrophils/Leukocytes Auto (Bld) [Pure # fraction] 8.7 E9/L High 2.0-7.5 [facility] Comment on above: Order Comment: Order Added by Discern Expert. Performed By: #### 2 [id number] #### [facility] [address] [place] [address] BMP 11-18-2022 Anion gap [Moles/Vol] 12 mmol/L Normal 6-16 [facility] Comment on above: Performed By: #### 2 [id number] #### [facility] [address] [place] [address] Calcium [Mass/Vol] 9.3 mg/dL Normal 8.9-11.1 [facility] Comment on above: Performed By: #### 2 [id number] #### [facility] [address] [place] [address] Chloride [Moles/Vol] 109 mmol/L Normal 101-[address] [facility] Comment on above: Performed By: #### 2 [id number] #### [facility] [address] [place] [address] CO2 [Moles/Vol] 24 mmol/L Normal 21-31 [facility] Comment on above: Performed By: #### 2 [id number] #### [facility] [address] [place] [address] Creatinine [Mass/Vol] 2.5 mg/dL High 0.5-1.3 [facility] Comment on above: Performed By: #### 2 [id number] #### [facility] [address] [place] [address] Glucose [Mass/Vol] 130 mg/dL Normal 55-199 [facility] Comment on above: Result Comment: If t his glucose result represents a fasting glucose, interpretation should refer to the following reference range: 55-99 mg/dL Performed By: #### 2 [id number] #### [facility] [address] [place] [address] Potassium [Moles/Vol] 4.8 mmol/L Normal 3.5-5.3 [facility] Comment on above: Performed By: #### 2 [id number] #### [facility] [address] [place] [address] Sodium [Moles/Vol] 140 mmol/L Normal 135-145 [facility] Comment on above: Performed By: #### 2 [id number] #### [facility] [address] [place] [address] Urea nitrogen [Mass/Vol] 38 mg/dL High 5-21 [facility] Comment on above: Performed By: #### 2 [id number] #### [facility] [address] [place] [address] Urea nitrogen/Creatinine [Mass ratio] 15 No Units Normal 10-20 [facility] Comment on above: Performed By: #### 2 [id number] #### [facility] [address] [place] [address] CBC w/ Auto Diffon 05-25-202 3 Erythrocyte distribution width (RBC) [Ratio] 13.5 % Normal 10.9-14.2 [facility] Comment on above: Performed By: #### 2 [id number] #### [facility] [address] [place] [address] Hematocrit (Bld) [Volume fraction] 34.9 % Low 37.7-49.0 [facility] Comment on above: Performed By: #### 2 [id number] #### [facility] [address] [place] [address] Hemoglobin (Bld) [Mass/Vol] 11.7 g/dL Low 13.5-17.5 [facility] Comment on above: Performed By: #### 2 [id number] #### [facility] [address] [place] [address] MCH (RBC) [Entitic mass] 32.1 pg Normal 27.0-34.0 [facility] Comment on above: Performed By: #### 2 [id number] #### [facility] [address] [place] [address] MCHC (RBC) [Mass/Vol] 33.6 g/dL Normal 31.4-36.0 [facility] Comment on above: Performed By: #### 2 [id number] #### [facility] [address] [place] [address] MCV (RBC) [Entitic vol] 95.4 fL Normal 80.0-100.0 [facility] Comment on above: Performed By: #### 2 [id number] #### [facility] [address] [place] [address] Platelet mean volume (Bld) [Entitic vol] 8.7 fL Normal 6.4-10.8 [facility] Comment on above: Performed By: #### 2 [id number] #### [facility] [address] [place] [address] Platelets (Bld) [#/Vol] 214.0 E9/L Normal 150.0-500. 0 [facility] Comment on above: Performed By: #### 2 [id number] #### [facility] [address] [place] [address] RBC (Bld) [#/Vol] 3.7 E12/L Low 4.3-5.9 [facility] Comment on above: Performed By: #### 2 [id number] #### [facility] [address] [place] [address] WBC corrected for nucl RBC Auto (Bld) [#/Vol] 10.4 E9/L Normal 4.0-11.0 [facility] Comment on above: Performed By: #### 2 [id number] #### [facility] [address] [place] [address] Consent for Treatmenton 10-26 Consent for Treatment [id number]:127 Normal [facility] Consent for Treatment [id number]:127 Normal [facility] Ferritinon 11-18-2022 Ferritin [Mass/Vol] 192 ng/mL Normal 24-336 [facility] Comment on above: Result Comment: NORM ALS MEN <30 YRS 16-132 ng/mL MEN >30 YRS 8-338 ng/mL WOMEN (PREMEN) 6-104 ng/mL WOMEN (POSTMEN) 12-210 ng/mL Performed By: #### 2 [id number], [id number], [id number], [id number], [id number], [id number], 6538114, [id number], [id number] ####[facility] [address] [place] [address] Folateon 11-18-2022 Folate [Mass/Vol] ng/mL Normal >=6.7 [facility] Comment on above: Performed By: #### 2 [id number], 3292688, 9366451, [id number], [id number], 9192829, 4829119, 9164368, 9874252 ####[facility] [address] [place] [address] Ironon 11-18-2022 Iron [Mass/Vol] 102 microgram/dL Normal 35-[address] [facility] Comment on above: Performed By: #### 2 [id number], 3365433, 6128182, [id number], [id number], 3115168, 9670594, 7835504, 1669696 ####[facility] [address] [place] [address] PT & PTTon 11-18-2022 aPTT Coag (PPP) [Time] 27.1 second(s) Normal 25.1-36.5 [facility] Comment on above: Result Comment: Para meter 15 days - 4 weeks 1 - 5 months 6 - 11 months 1 - 5 years 6 - 10 years 11 - 17 years PTT Mean: 35.4 (27.6-45.6) Mean: 33.5 (24.8-40.7) Mean: 32.4 (25.1-40.7) Mean: 31.6 (24.0-39.2) Mean: 31.6 (26.9-38.7) Mean: 31.0 (24.6-38.4) Pediatric Reference ranges were obtained from a study by Jaden Hutchinson et al. prepared from 1437 samples obtained at 7 different centers using the same coagulation reagent and instrumentation as [facility]. Currently there are no coagulation studies available worldwide for children to 14 days, and no normal ranges. Heparin therapeutic range (represented by Anti-Factor Xa activity of 0.2 - 0.4 U/mL) corresponds to PTT of 56.6 - 109.0 sec. Performed By: #### 2 [id number] #### [facility] [address] [place] [address] INR Coag (PPP) [Relative time] 1.1 {INR} Invalid Interpretation Code [facility] Comment on above: Result Comment: INR results are specifically intended to assess patients stabilized on long-term Anticoagulation therapy suggested INR?s ?Less Intensive Anticoagulation? 2.0 ? 3.0 Conventional Range 3.0 ? 4.5 Performed By: #### 2 [id number] #### [facility] [address] [place] [address] PT Coag (PPP) [Time] 11.9 second(s) Normal 9.4-12.5 [facility] Comment on above: Result Comment: 15 d ays - 4 weeks 1 - 5 months 6 -11 months 1 ? 5 years 6 ? 10 years 11 -17 years Mean: 11.2 (9.5 ? 12.6) Mean: 11.0 (9.7 ? 12.8) Mean: 11.0 (9.8 ? 13.0) Mean: 11.3 (9.9 ? 13.4) Mean: 11.7 (10.0 ? 14.6) Mean: 11.8 (10.0 - 14.1) Pediatric Reference ranges were obtained from a study by estrellita Daugherty al. prepared from 1437 samples obtained at 7 different centers using the same coagulation reagent and instrumentation as [facility]. Currently there are no coagulation studies available worldwide for children to 14 days, and no normal ranges. Performed By: #### 2 [id number] #### [facility] [address] [place] [address] Phosphoruson 11-18-2022 Phosphate [Mass/Vol] 4.4 mg/dL Normal 1.9-4.[address] [facility] Comment on above: Performed By: #### 2 962153, 8472724, 8698779, 36406028, 090337132, 8455967, 6854620, 9610519, 4142526 ####[facility] [address] [place] [address] Physician Orderon 11-18-2022 Physician Order [id number]:127 Normal [facility] TIBC Calculatedon 11-18-2022 Iron binding capacity [Mass/Vol] 292 microgram/dL Normal 250-400 [facility] Comment on above: Performed By: #### 2 [id number], 1588546, 8761974, 11772986, 543345963, 1066779, 9668516, 9539988, 7327638 ####[facility] [address] [place] [address] Transferrin [Mass/Vol] 208 mg/dL Normal 200-[address] [facility] Comment on above: Performed By: #### 2 869797, 5059270, 3925335, 74675037, 890680630, 2130565, 5483831, 5465442, 5700759 ####[facility] [address] [place] [address] U Protein/Creat Ratioon 10-26 Albumin Elph (U) [Mass fraction] 25.2 mg/dL Invalid Interpretation Code [facility] Comment on above: Result Comment: The reference range and other method performance specifications have not been established for this test; results should be integrated into the clinical context for interpretation. Performed By: #### 1 [id number] #### [facility] [address] [place] [address] Creatinine (U) [Mass/Vol] 80.6 mg/dL Invalid Interpretation Code [facility] Comment on above: Result Comment: The reference range and other method performance specifications have not been established for this test; results should be integrated into the clinical context for interpretation. Performed By: #### 1 [id number] #### [facility] [address] [place] [address] U Prot/Creat Ratio 312.70 mg/gm Cr High .00-200.00 [facility] Comment on above: Performed By: #### 1 [id number] #### [facility] [address] [place] [address] UA With Cult Reflexon 2022 Bilirubin Ql (U) Negative Normal Negative [facility] Comment on above: Performed By: #### 1 [id number], 6637284 #### [facility] [address] [place] [address] Clarity (U) CLEAR Normal Clear [facility] Comment on above: Performed By: #### 1 [id number], 3557858 #### [facility] [address] [place] [address] Color (U) YELLOW Normal Yellow [facility] Comment on above: Performed By: #### 1 5765862, 8516627 #### [facility] [address] [place] [address] Epithelial cells.squamous LM.HPF (Urine sed) [#/Area] 0-2 Normal 0-2 [facility] Comment on above: Performed By: #### 1 0937107, 6485506 #### [facility] [address] [place] [address] Glucose Test strip (U) [Mass/Vol] Negative Normal Negative [facility] Comment on above: Performed By: #### 1 8788544, 2630839 #### [facility] [address] [place] [address] Hemoglobin Ql (U) 3+ Abnormal Negative [facility] Comment on above: Performed By: #### 1 6010666, 6429061 #### [facility] [address] [place] [address] Ketones (U) [Mass/Vol] Negative Normal Negative [facility] Comment on above: Performed By: #### 1 5114321, 6311299 #### [facility] [address] [place] [address] [place].plasma/[place] .RBC (Bld) [Mass ratio] >30 Abnormal 0-3 [facility] Comment on above: Performed By: #### 1 6185234, 2772415 #### [facility] [address] [place] [address] Nitrite Ql (U) Negative Normal Negative [facility] Comment on above: Performed By: #### 1 1272845, 3042850 #### [facility] [address] [place] [address] pH (U) 6.0 [pH] Invalid Interpretation Code 5.0-9.0 [facility] Comment on above: Performed By: #### 1 [id number], 7103561 #### [facility] [address] [place] [address] Protein (U) [Mass/Vol] TRACE Abnormal Negative [facility] Comment on above: Performed By: #### 1 [id number], 9758846 #### [facility] [address] [place] [address] Specific gravity (U) [Rel density] 1.020 Invalid Interpretation Code 1.005-1.03 0 [facility] Comment on above: Performed By: #### 1 1552559, 4750955 #### [facility] [address] [place] [address] Type of Urine collection method Clean Catch Normal [facility] Comment on above: Performed By: #### 1 0735021, 4284553 #### [facility] [address] [place] [address] Urobilinogen Qn (U) 0.2 {Wil'U}/dL Normal 0.0-1.0 [facility] Comment on above: Performed By: #### 1 6938905, 5483961 #### [facility] [address] [place] [address] WBC Auto Ql (U) 1+ Abnormal Negative [facility] Comment on above: Performed By: #### 1 5467029, 2059995 #### [facility] [address] [place] [address] WBC LM.HPF (Urine sed) [#/Area] 0-5 Normal 0-5 [facility] Comment on above: Performed By: #### 1 [id number], 5712335 #### [facility] [address] [place] [address] Uric Acidon 11-18-2022 Urate [Mass/Vol] 7.0 mg/dL Normal 2.2-7.4 [facility] Comment on above: Performed By: #### 2 025710, 7704733, 5074370, 66655071, 593658252, 9821362, 6204620, 0137212, 6921716 ####[facility] [address] [place] [address] Vit B12on 11-18-2022 Cobalamin (Vitamin B12) [Mass/Vol] 495 pg/mL Normal 50-1500 [facility] Comment on above: Performed By: #### 2 055584, 6378199, 2169539, 47621856, 050699453, 0328363, 1045438, 6460891, 9705580 ####[facility] [address] [place] [address] Vitamin D 25 Hydroxyon 11-18 25-hydroxyvitamin D3 [Mass/Vol] 64.8 ng/mL Normal 30.0-100.0 [facility] Comment on above: Result Comment: Vit grewal D deficiency has been defined as a level of serum 25-OH vitamin D less than 20 ng/mL (1,2) by the [place] of [employer] and an Endocrine Society practice guideline. The Endocrine Society further defined vitamin D insufficiency as a level between 21 and 29 ng/mL (2). 1. IOM ([place] of [employer]). 2010. Dietary reference intakes for calcium and D. [place]: The National Academies Press. 2. Kortney MF, Candie NC, Ekaterina WEINBERG, et al. Evaluation, treatment, and prevention of vitamin D deficiency: an Endocrine Society clinical practice guideline. JCEM. 2010; 96 (7):1911-30. Performed By: #### 2 859192, 2808189, 4389633, 56458538, 768532405, 2304315, 2297479, 2756234, 8996576 ####[facility] [address] [place] [address] eGFRon 11-18-2022 GFR/1.73 sq M.predicted among non-blacks MDRD (S/P/Bld) [Vol rate/Area] 25 mL/min/1.73 m2 Low >=59 [facility] Comment on above: Order Comment: Order added by Discern Expert. Result Comment: Tool Liaison christa kidney disease could be indicated at eGFR's of less than 60 mL/min/1.73m2. Kidney failure is indicated at less than 15 mL/min/1.73m2. Performed By: #### 2 [id number] #### [facility] [address] [place] [address] Office Visiton 11-17-2022 Follow-up visit [id number] Ruben Smyth 1940 M Date Provider Department Center 11/17/[address] [facility] Family History Problem Relation Age of Onset No Known Problems Mother No Known Problems Father Family Status - Relation Status Age at Mother Father Level of Service:28025 [place] OFFICE/OUTPATIENT ESTABLISHED MOD MDM 30-39 MIN Normal [facility] Lab Reportson 11-12-2022 Lab Reports [id number]#[id number]:127 Normal [facility] Lab Reports [id number]#[id number]:127 Normal [facility] Lab Reports [id number]#[id number]:127 Normal [facility] Lab Reports [id number]#[id number]:127 Normal [facility] PSA, FREE AND TOTAL RATIOon 11-09-2022 % Free PSA 11.3 % Normal [facility] Comment on above: Result Comment: The table below lists the probability of prostate cancer for men with non-suspicious DEBORAH results and total PSA between 4 and 10 ng/mL, by patient age (Adelaide et al, FEDERICO 1998, 279:1542). % Free PSA 50-64 yr 65-75 yr 0.00-10.00% 56% 55% 10.01-15.00% 24% 35% 15.01-20.00% 17% 23% 20.01-25.00% 10% 20% >25.00% 5% 9% Please note: Adelaide et al did not make specific recommendations regarding the use of percent free PSA for any other population of men. Performed By: #### P SAFREE #### [facility] [address] [place] [address] Dr. Alicia Patel Prostate specific Ag [Mass/Vol] 4.6 ng/mL Critically high 0.0-4.0 [facility] Comment on above: Result Comment: Dwight CARRILLOIA methodology. . According to the [place] [employer], Serum PSA should decrease and remain at undetectable levels after radical prostatectomy. The AUA defines biochemical recurrence as an initial PSA value 0.2 ng/mL or greater followed by a subsequent confirmatory PSA value 0.2 ng/mL or greater. Values obtained with different assay methods or kits cannot be used interchangeably. Results cannot be interpreted as absolute evidence of the presence or absence of malignant disease. Performed By: #### P SAFREE #### [facility] [address] [place] [address] Dr. Alicia Patel PSA, Free 0.52 ng/mL Normal N/A [facility] Comment on above: Result Comment: Dwight JUAREZ methodology. Performed By: #### P SAFREE #### [facility] [address] [place] [address] Dr. Alicia Patel INSULINon 11-08-2022 Insulin 18.5 uIU/mL Normal 2.6-24.9 [facility] Comment on above: Performed By: #### T SH, LIPID, T4, FT3, CMP #### [facility] [address] [place] [address] Dr. Alicia Patel CBC AUTO DIFFon 11-06-2022 BASO # 0.0 103/ul Normal 0.0-0.1 [facility] Comment on above: Performed By: #### C BC #### [facility] [address] [place] [address] Dr. Alicia Patel Basophils/100 WBC (Bld) 0.4 % Normal 0.2-2.0 [facility] Comment on above: Performed By: #### C BC #### [facility] [address] [place] [address] Dr. Alicia Patel EO # 0.2 103/ul Normal 0.0-0.7 [facility] Comment on above: Performed By: #### C BC #### [facility] [address] [place] [address] Dr. Alicia Patel Eosinophils/100 WBC (Bld) 4.6 % Normal 0.9-7.0 [facility] Comment on above: Performed By: #### C BC #### [facility] [address] [place] [address] Dr. Alicia Patel Erythrocyte distribution width (RBC) [Ratio] 13.2 % Normal 11.0-15.0 [facility] Comment on above: Performed By: #### C BC #### [facility] [address] [place] [address] Dr. Alicia Patel Hematocrit (Bld) [Volume fraction] 34.6 % Critically low 42.0-54.0 [facility] Comment on above: Performed By: #### C BC #### [facility] [address] [place] [address] Dr. Alicia Patel Hemoglobin (Bld) [Mass/Vol] 11.4 g/dL Critically low 14.0-18.0 [facility] Comment on above: Performed By: #### C BC #### [facility] [address] [place] [address] Dr. Alicia Patel IG # 0.03 10e3/ul Normal 0.00-0.03 [facility] Comment on above: Performed By: #### C BC #### [facility] [address] [place] [address] Dr. Alicia Patel IG % 0.6 % Critically high 0.0-0.5 [facility] Comment on above: Performed By: #### C BC #### [facility] [address] [place] [address] Dr. Alicia Patel LYMPH # 0.9 103/ul Critically low 1.2-3.8 [facility] Comment on above: Performed By: #### C BC #### [facility] [address] [place] [address] Dr. Alicia Patel Lymphocytes/100 WBC (Bld) 16.3 % Critically low 20.5-60.0 [facility] Comment on above: Performed By: #### C BC #### [facility] [address] [place] [address] Dr. Alicia Patel MANUAL DIFF REQ NO Normal [facility] Comment on above: Performed By: #### C BC #### [facility] [address] [place] [address] Dr. Alicia Patel MCH (RBC) [Entitic mass] 32.9 pg Normal 25.9-34.0 [facility] Comment on above: Performed By: #### C BC #### [facility] [address] [place] [address] Dr. Alicia Patel MCHC (RBC) [Mass/Vol] 32.9 g/dL Normal 29.9-35.2 [facility] Comment on above: Performed By: #### C BC #### [facility] [address] [place] [address] Dr. Alicia Patel MCV (RBC) [Entitic vol] 99.7 fL Critically high 80.0-94.0 [facility] Comment on above: Performed By: #### C BC #### [facility] [address] [place] [address] Dr. Alicia Patel MONO # 0.6 103/ul Normal 0.3-0.8 [facility] Comment on above: Performed By: #### C BC #### [facility] [address] [place] [address] Dr. lAicia Patel Monocytes/100 WBC (Bld) 12.0 % Normal 1.7-12.0 [facility] Comment on above: Performed By: #### C BC #### [facility] [address] [place] [address] Dr. Alicia Patel NEUT # 3.5 103/ul Normal 1.4-6.5 [facility] Comment on above: Performed By: #### C BC #### [facility] [address] [place] [address] Dr. Alicia Patel Neutrophils/100 WBC (Bld) 66.1 % Normal 43.0-75.0 [facility] Comment on above: Performed By: #### C BC #### [facility] [address] [place] [address] Dr. Alicia Patel Platelet mean volume (Bld) [Entitic vol] 10.1 fL Normal 9.5-13.5 [facility] Comment on above: Performed By: #### C BC #### [facility] [address] [place] [address] Dr. Alicia Patel PLT 168 103/ul Normal 150-450 [facility] Comment on above: Performed By: #### C BC #### [facility] [address] [address] [address] Alicia Patel RBC 3.47 106/ul Critically low 4.70-6.10 [facility] Comment on above: Performed By: #### C BC #### [facility] [address] [address] [address] Alicia Patel WBC 5.2 103/ul Normal 4.0-11.0 [facility] Comment on above: Performed By: #### C BC #### [facility] [address] [address] [address] Alicia Patel FREE T3on 11-06-2022 FREE T3 2.78 pg/mlL Normal 2.18-3.98 [facility] Comment on above: Performed By: #### U RTPCR #### [facility] [address] [place] [address] Dr. Alicia Patel GLYCOHEMOGLOBIN A1Con 2022 ADA RECOMMENDATION SEE BELOW Normal [facility] Comment on above: Result Comment: ADA RECOMMENDED LIMIT 4.0 - 6.0 ADA THERAPEUTIC TARGET < 7.0 ACTION SUGGESTED > 7.0 Performed By: #### T SH, LIPID, T4, FT3, CMP #### [facility] [address] [address] [address] Alicia Patel Glucose [Mass/Vol] 120 mg/dL Normal [facility] Comment on above: Performed By: #### T SH, LIPID, T4, FT3, CMP #### [facility] [address] [place] [address] Dr. Alicia Patel HbA1c (Bld) [Mass fraction] 5.8 % Normal 4.5-6.2 [facility] Comment on above: Performed By: #### T SH, LIPID, T4, FT3, CMP #### [facility] [address] [place] [address] Dr. Alicia Patel LIPID PROFILEon 11-06-2022 CHOL-HDL RATIO NORM SEE BELOW Normal [facility] Comment on above: Result Comment: 3.3 - 4.4 LOW RISK 4.4 - 7.1 AVERAGE RISK 7.1 - 11.0 MODERATE RISK >11.0 HIGH RISK Performed By: #### U RTPCR #### [facility] [address] [address] [address] Alicia Patel Cholesterol [Mass/Vol] 107 mg/dL Normal <=200 [facility] Comment on above: Performed By: #### U RTPCR #### [facility] [address] [address] [address] Alicia Patel Cholesterol in HDL [Mass/Vol] 34 mg/dL Critically low 40-60 [facility] Comment on above: Performed By: #### U RTPCR #### [facility] [address] [place] [address] Dr. Alicia Patel Cholesterol in LDL [Mass/Vol] 58.8 mg/dL Normal [facility] Comment on above: Performed By: #### U RTPCR #### [facility] [address] [place] [address] Dr. Alicia Patel Cholesterol.total/Chol esterol in HDL [Mass ratio] 3.1 {ratio} Normal [facility] Comment on above: Performed By: #### U RTPCR #### [facility] [address] [place] [address] Dr. Alicia Patel HDL NORMAL > or = 60 mg/dl - LO W CARDIOVASCULAR RISK <40 mg/dl - HIGH CARDIOVASCULAR RISK Normal [facility] Comment on above: Performed By: #### U RTPCR #### [facility] [address] [address] [address] Alicia Patel LDL CALC NORMAL SEE BELOW Normal [facility] Comment on above: Result Comment: <100 mg/dl OPTIMAL 100 - 129 mg/dl NEAR OR ABOVE OPTIMAL 130 - 159 mg/dl BORDERLINE HIGH 160 - 189 mg/dl HIGH >190 mg/dl VERY HIGH Performed By: #### U RTPCR #### [facility] [address] [place] [address] Dr. Alicia aPtel Triglyceride [Mass/Vol] 71 mg/dL Normal <=150 [facility] Comment on above: Performed By: #### U RTPCR #### [facility] [address] [place] [address] Dr. Alicia Patel VLDL CALC 14.2 mg/dL Normal [facility] Comment on above: Performed By: #### U RTPCR #### [facility] [address] [place] [address] Dr. Alicia Patel PROF 14(COMP METB)on 023 Albumin [Mass/Vol] 3.4 g/dL Normal 3.4-5.0 [facility] Comment on above: Performed By: #### T SH, LIPID, T4, FT3, CMP #### [facility] [address] [place] [address] Dr. Alicia Patel Albumin/Globulin [Mass ratio] 0.9 {ratio} Normal [facility] Comment on above: Performed By: #### T SH, LIPID, T4, FT3, CMP #### [facility] [address] [place] [address] Dr. Alicia Patel ALP [Catalytic activity/Vol] 75 U/L Normal 46-116 [facility] Comment on above: Performed By: #### T SH, LIPID, T4, FT3, CMP #### [facility] [address] [place] [address] Dr. Alicia Patel ALT [Catalytic activity/Vol] 31 U/L Normal 16-63 [facility] Comment on above: Performed By: #### T SH, LIPID, T4, FT3, CMP #### [facility] [address] [place] [address] Dr. Alicia Patel Anion gap [Moles/Vol] 14.4 mmol/L Normal [facility] Comment on above: Performed By: #### T SH, LIPID, T4, FT3, CMP #### [facility] [address] [place] [address] Dr. Alicia Patel AST [Catalytic activity/Vol] 23 U/L Normal 15-37 [facility] Comment on above: Performed By: #### T SH, LIPID, T4, FT3, CMP #### [facility] [address] [place] [address] Dr. Alicia Patel Bilirubin [Mass/Vol] 0.5 mg/dL Normal 0.2-1.0 [facility] Comment on above: Performed By: #### T SH, LIPID, T4, FT3, CMP #### [facility] [address] [place] [address] Dr. Alicia Patel Calcium [Mass/Vol] 8.8 mg/dL Normal 8.5-10.1 [facility] Comment on above: Performed By: #### T SH, LIPID, T4, FT3, CMP #### [facility] [address] [place] [address] Dr. Alicia Patel Chloride [Moles/Vol] 110 mmol/L Critically high 98-107 [facility] Comment on above: Performed By: #### T SH, LIPID, T4, FT3, CMP #### [facility] [address] [place] [address] Dr. Alicia Patel CO2 [Moles/Vol] 24.2 mmol/L Normal 21.0-32.0 [facility] Comment on above: Performed By: #### T SH, LIPID, T4, FT3, CMP #### [facility] [address] [place] [address] Dr. Alicia Patel Creatinine [Mass/Vol] 2.41 mg/dL Critically high 0.70-1.30 [facility] Comment on above: Performed By: #### T SH, LIPID, T4, FT3, CMP #### [facility] [address] [place] [address] Dr. Alicia Patel EGFR-AF PERUVIAN 32 mL/min/1.73m2 Critically low >=60 [facility] Comment on above: Performed By: #### T SH, LIPID, T4, FT3, CMP #### [facility] [address] [place] [address] Dr. Alicia Patel EGFR-NON AF PERUVIAN 26 mL/min/1.73m2 Critically low >=60 [facility] Comment on above: Performed By: #### T SH, LIPID, T4, FT3, CMP #### [facility] [address] [place] [address] Dr. Alicia Patel Globulin (S) [Mass/Vol] 3.6 g/dL Normal [facility] Comment on above: Performed By: #### T SH, LIPID, T4, FT3, CMP #### [facility] [address] [place] [address] Dr. Alicia Patel Glucose [Mass/Vol] 72 mg/dL Critically low 74-106 [facility] Comment on above: Performed By: #### T SH, LIPID, T4, FT3, CMP #### [facility] [address] [address] [address] Alicia Patel Potassium [Moles/Vol] 4.6 mmol/L Normal 3.5-5.1 [facility] Comment on above: Performed By: #### T SH, LIPID, T4, FT3, CMP #### [facility] [address] [place] [address] Dr. Alicia Patel Protein [Mass/Vol] 7.0 g/dL Normal 6.4-8.2 [facility] Comment on above: Performed By: #### T SH, LIPID, T4, FT3, CMP #### [facility] [address] [place] [address] Dr. Alicia Patel Sodium [Moles/Vol] 144 mmol/L Normal 136-145 [facility] Comment on above: Performed By: #### T SH, LIPID, T4, FT3, CMP #### [facility] [address] [place] [address] Dr. Alicia Patel Urea nitrogen [Mass/Vol] 32.0 mg/dL Critically high 7.0-18.0 [facility] Comment on above: Performed By: #### T SH, LIPID, T4, FT3, CMP #### [facility] [address] [place] [address] Dr. Alicia Patel Urea nitrogen/Creatinine [Mass ratio] 13.3 mg/mg Normal [facility] Comment on above: Performed By: #### T SH, LIPID, T4, FT3, CMP #### [facility] [address] [place] [address] Dr. Alicia Patel T4on 11-06-2022 T4 [Mass/Vol] 7.90 ug/dL Normal 4.50-12.10 [facility] Comment on above: Performed By: #### T SH, LIPID, T4, FT3, CMP #### [facility] [address] [address] [address] Alicia Patel TSHon 11-06-2022 TSH 0.263 uIU/mL Critically low 0.358-3.74 0 [facility] Comment on above: Performed By: #### T SH, LIPID, T4, FT3, CMP #### [facility] [address] [address] [address] Alicia Patel URIC ACID SERUMon 11-06-2022 Urate [Mass/Vol] 7.3 mg/dL Critically high 3.5-7.2 [facility] Comment on above: Performed By: #### T SH, LIPID, T4, FT3, CMP #### [facility] [address] [address] [address] Alicia Patel Pre-Certification Formon Pre-Certification Form [id number]:127 Normal [facility] ECHOCARDIO M/2D COMPLETEon 0 10-26-2022 ECHOCARDIO M/2D COMPLETE Patient: VICTORINO SMYTH Exam Date: 10/26/2022 : 1940 Gender:M Ordering : IRIS CORONEL Admission #: [id number] Family : DR TRAY ALFARO . Order #: [id number] CLICK HERE TO VIEW EXAM ECHOCARDIOGRAM REPORT PROCEDURE: CARDIO PULMONARY ECHOCARDIO M/2D COMP INDICATIONS: Dyspnea on exertion, coronary artery disease, hypertension COMPARISON: None. DESCRIPTION: COMPLETE ECHOCARDIOGRAM Real-time transthoracic echocardiography with 2D, M-mode, spectral and color flow Doppler performed. QUALITY: Technical quality was good. LEFT VENTRICLE: Normal chamber size. Mild concentric left ventricular hypertrophy. LV EF: Normal left ventricular ejection fraction, (>55%). DIASTOLIC: Normal diastolic function. ATRIAL SEPTUM: Inadequately seen. LEFT ATRIUM: Normal chamber size. RIGHT ATRIUM: Normal chamber size. RIGHT VENTRICLE: Appears enlarged. Normal right ventricular systolic function. TRICUSPID VALVE: Normal mobility and thickness. No stenosis with trivial regurgitation. Doppler studies reveal moderately (45-60) elevated right sided pressures. RVSP 46 mmHg MITRAL VALVE: Normal mobility and thickness. No evidence of mitral valve stenosis. There is no mitral annular calcification. Trivial mitral regurgitation. AORTIC VALVE: Normal trileaflet appearance. Normal leaflet mobility. No evidence of aortic valve stenosis. No aortic regurgitation. AORTIC ROOT: Normal diameter and appearance. PULMONIC VALVE: Normal thickness and mobility. No stenosis. Trivial regurgitation. PERICARDIUM: Anterior free space; trivial effusion versus fat pad. IVC: Collapses with inspirations. IVC is normal in size. PLEURA: CONCLUSION: Global left ventricular systolic function is normal; visually estimated ejection fraction is 55 to 60%. Mildly increased left ventricular wall thickness. The right ventricle appears enlarged with preserved systolic function. Mildly elevated right-sided pressures. No significant valvular abnormalities. Anterior free space; trivial effusion versus fat pad. Adult Echocardiography Procedure Report Left Ventricle LVEDD (3.7 - 5.6 cm): 5.19 cm LVESD (2.2 - 4.0 cm): 3.25 cm LVIVS thickness (0.6 - 1.2 cm): 1.11 cm LVPW thickness (0.5 - 1.0 cm): 1.09 cm e': 0.08 m/s E - e': 7.11 LVOT Max Gradient: 1.75 mm[Hg] Peak Velocity (LVOT): 0.66 m/s LVOT Diameter 2.55 cm Left Ventricular Ejection Fraction: 66.95 %, 66.95 % Left Atrium LA Volume Index (2D A2C): 59.21 ml, 59.21 ml Left Atrium Systolic Dimension: 3.84 cm Mitral Valve MV E to A Ratio: 0.84 Mitral Valve A-Wave Peak Velocity: 0.65 m/s Mitral Valve E-Wave Peak Velocity: 0.55 m/s Right Ventricle Aorta AO Root Diam: 3.31 cm Aortic Valve AoV Area (Peak Thiago): 4.43 cm2, 4.43 cm2 Peak Velocity(Antegrade Flow): 0.76 m/s Peak Gradient(Antegrade Flow): 2.32 mm[Hg] Tricuspid Valve Peak Velocity (Regurgitant Flow): 3.27 m/s, 2.72 m/s, 2.74 m/s Peak Velocity: 0.47 m/s Pulmonic Valve Peak Velocity: 1.41 m/s, 1.30 m/s Peak Gradient: 7.96 mm[Hg], 6.78 mm[Hg] Right Atrium Right Atrium Systolic Pressure: 38.97 ml, 38.97 ml Dictated by: Ksenia Glasgow M.D. on 10/28/2022 at 12:59 Approved by: Ksenia Glasgow M.D. on 10/28/2022 at 13:02 Normal [facility] RAD - MISCon 10-25-2022 RAD - MISC [id number]:127 Normal [facility] XR KUB 1 VIEWon 10-22-2022 XR KUB 1 VIEW EXAMINATION: XR KUB 1 VIEW HISTORY: Lower urinary tract symptoms due to benign prostatic hypertrophy COMPARISON: 10/19/2021 FINDINGS: KIDNEY/URETER - RIGHT: Right double-J ureteral stent in normal position. No definite calcification KIDNEY/URETER - LEFT: No visible renal or ureteral calcifications. PELVIS: No visible ureteral calcifications. Any visible calcifications favor phleboliths. BOWEL: No abnormal dilation or deviation. BONES: Moderate degenerative changes of the spine and hips OTHER: Negative. No abnormal gaseous collections. IMPRESSION: Right ureteral stent Electronically authenticated by: TYLER MONSIVAIS Date: 2022-10-22 09:12 Normal [facility] RAD - Ultrasound Reporton RAD - Ultrasound Report [id number]#[id number]:127 Normal [facility] US KIDNEYSon 10-18-2022 US KIDNEYS EXAMINATION: US KIDN EYS HISTORY: Kidney stone COMPARISON: Ultrasound kidneys 09/01/2022, CT abdomen pelvis 08/11/2022 TECHNIQUE: Ultrasound examination was performed of the kidneys and urinary bladder. FINDINGS: RIGHT KIDNEY: Marked hydronephrosis with several prominent stones suspected within the kidney, largest is 1.7 cm. Large benign-appearing cyst within superior pole, 1.9 cm. Ureteral stent. Kidney: 14.5 x 6.5 x 9.5 cm LEFT KIDNEY: Marked atrophy and cortical thinning. No hydronephrosis or appreciable stones. Kidney: 10.9 x 3.3 x 5.0 cm. Cortical thickness 0.7 cm. BLADDER: No visible wall thickening, mass, or calculi. Ureteral stent. IMPRESSION: 1. Grossly stable right hydronephrosis and suspected ureteral stent. Hydronephrosis persists after emptying of the bladder. 2. There are suggestive of right nephrolithiasis, although no stones were seen on the 08/11/2022 CT study. 3. Marked left renal atrophy, best seen on prior CT study. Electronically authenticated by: TESS FORD Date: 2022-10-18 07:04 Normal [facility] IntraOperative Documentson 0 10-15-2022 IntraOperative Documents [id number]#[id number]:127 Normal [facility] 37on 10-14-2022 37 Increase amlodipine back to 10 mg daily Increase Isosorbide to 120 mg daily ( 2 tabs) daily for chest pain Goal b/p is 130/80 or less Call office for continued chest pain/burning, shortness of breath, or call 911 for any worsening symptoms. Normal [facility] BNPon 10-14-2022 Natriuretic peptide B (Bld) [Mass/Vol] 300.0 pg/mL Normal <=1,800.0 [facility] Comment on above: Performed By: #### T SH, LIPID, T4, FT3, CMP #### [facility] [address] [place] [address] Dr. Alicia Patel CBC AUTO DIFFon 10-14-2022 BASO # 0.0 103/ul Normal 0.0-0.1 [facility] Comment on above: Performed By: #### T SH, LIPID, T4, FT3, CMP #### [facility] [address] [address] [address] Alicia Patel Basophils/100 WBC (Bld) 0.6 % Normal 0.2-2.0 [facility] Comment on above: Performed By: #### T SH, LIPID, T4, FT3, CMP #### [facility] [address] [address] [address] Alicia Patel EO # 0.2 103/ul Normal 0.0-0.7 [facility] Comment on above: Performed By: #### T SH, LIPID, T4, FT3, CMP #### [facility] [address] [place] [address] Dr. Alicia Patel Eosinophils/100 WBC (Bld) 4.6 % Normal 0.9-7.0 [facility] Comment on above: Performed By: #### T SH, LIPID, T4, FT3, CMP #### [facility] [address] [place] [address] Dr. Alicia Patel Erythrocyte distribution width (RBC) [Ratio] 14.2 % Normal 11.0-15.0 [facility] Comment on above: Performed By: #### T SH, LIPID, T4, FT3, CMP #### [facility] [address] [place] [address] Dr. Alicia Patel Hematocrit (Bld) [Volume fraction] 36.1 % Critically low 42.0-54.0 [facility] Comment on above: Performed By: #### T SH, LIPID, T4, FT3, CMP #### [facility] [address] [place] [address] Dr. Alicia Patel Hemoglobin (Bld) [Mass/Vol] 11.8 g/dL Critically low 14.0-18.0 [facility] Comment on above: Performed By: #### T SH, LIPID, T4, FT3, CMP #### [facility] [address] [place] [address] Dr. Alicia Patel IG # 0.03 10e3/ul Normal 0.00-0.03 [facility] Comment on above: Performed By: #### T SH, LIPID, T4, FT3, CMP #### [facility] [address] [place] [address] Dr. Alicia Patel IG % 0.6 % Critically high 0.0-0.5 [facility] Comment on above: Performed By: #### T SH, LIPID, T4, FT3, CMP #### [facility] [address] [place] [address] Dr. Alicia Patel LYMPH # 1.1 103/ul Critically low 1.2-3.8 [facility] Comment on above: Performed By: #### T SH, LIPID, T4, FT3, CMP #### [facility] [address] [place] [address] Dr. Alicia Patel Lymphocytes/100 WBC (Bld) 22.6 % Normal 20.5-60.0 [facility] Comment on above: Performed By: #### T SH, LIPID, T4, FT3, CMP #### [facility] [address] [place] [address] Dr. Alicia Patel MANUAL DIFF REQ NO Normal [facility] Comment on above: Performed By: #### T SH, LIPID, T4, FT3, CMP #### [facility] [address] [place] [address] Dr. Alicia Patel MCH (RBC) [Entitic mass] 33.2 pg Normal 25.9-34.0 [facility] Comment on above: Performed By: #### T SH, LIPID, T4, FT3, CMP #### [facility] [address] [place] [address] Dr. Alicia Patel MCHC (RBC) [Mass/Vol] 32.7 g/dL Normal 29.9-35.2 [facility] Comment on above: Performed By: #### T SH, LIPID, T4, FT3, CMP #### [facility] [address] [place] [address] Dr. Alicia Patel MCV (RBC) [Entitic vol] 101.7 fL Critically high 80.0-94.0 [facility] Comment on above: Performed By: #### T SH, LIPID, T4, FT3, CMP #### [facility] [address] [place] [address] Dr. Alicia Patel MONO # 0.7 103/ul Normal 0.3-0.8 [facility] Comment on above: Performed By: #### T SH, LIPID, T4, FT3, CMP #### [facility] [address] [place] [address] Dr. Alicia Patel Monocytes/100 WBC (Bld) 13.8 % Critically high 1.7-12.0 [facility] Comment on above: Performed By: #### T SH, LIPID, T4, FT3, CMP #### [facility] [address] [place] [address] Dr. Alicia Patel NEUT # 2.9 103/ul Normal 1.4-6.5 [facility] Comment on above: Performed By: #### T SH, LIPID, T4, FT3, CMP #### [facility] [address] [place] [address] Dr. Alicia Patel Neutrophils/100 WBC (Bld) 57.8 % Normal 43.0-75.0 [facility] Comment on above: Performed By: #### T SH, LIPID, T4, FT3, CMP #### [facility] [address] [place] [address] Dr. Alicia Patel Platelet mean volume (Bld) [Entitic vol] 10.1 fL Normal 9.5-13.5 [facility] Comment on above: Performed By: #### T SH, LIPID, T4, FT3, CMP #### [facility] [address] [place] [address] Dr. Alicia Patel PLT 160 103/ul Normal 150-450 [facility] Comment on above: Performed By: #### T SH, LIPID, T4, FT3, CMP #### [facility] [address] [place] [address] Dr. Alicia Patel RBC 3.55 106/ul Critically low 4.70-6.10 [facility] Comment on above: Performed By: #### T SH, LIPID, T4, FT3, CMP #### [facility] [address] [place] [address] Dr. Alicia Patel WBC 5.0 103/ul Normal 4.0-11.0 [facility] Comment on above: Performed By: #### T SH, LIPID, T4, FT3, CMP #### [facility] [address] [place] [address] Dr. Alicia Patel Coding Summary.on 10-14-2022 Coding Summary. CD:[id number] Ww+PGh lYWQ+IS9EXQIxW27ltMHtoJ7kF 0NMTElOSywgQVBQTElOSyIgbmF rEB4ocHZbWOXs IC8+WB6iBFUgYgauiAJzv4Q9jQ S3O37fqh9xSOlyxKT0KFEwGgYa dmtbd2imgQc9QQncKfcgVdPa HWDvvN70DBB3cI90Iv79kUBmiX Pkb8akaMc0LlIrJGLcBBB7sJyv QMcpm5CsWDWuR81eeBFgw3A1 NTDasIfnzOAvGzHroBG6wL0cEO gpdyphj9cxuodqJrl5ur12bWUt m1Z8jHD7T9FhkcW3WXPduIFq PzeqiASKcP6kcgomn3ixqglrWl MiUFLcXIm8LZo1IEOceFdmTsQz UI40ILT9DRZxopGgG6MiNKUv xNouZtE2v2K9Xt8GQ3CCPpxyP8 VNTUFSWTwvdGQ+KG77wv97N1Rb PopoYjc7NYAyACV2vPF4jP3s GWKxUSznd1F7pOY1X4WnviKjsq 0hn3nxVLXqZYtaV86igJWcq0B8 TWRrlRF6AAJpbVhuVrTsfV15 Oyc+ASJnyHfye3FtBwzbp8xyb9 qpkOw5IamgHNDcsmGicYisJPJ0 a0IsYk7hZUPipBE5iXA9wZ9q ZkFdImI7XWgnV948IpCfjICmXe diF59dR1PwtRR+QVEoNph0PRYl yMpsPZ1dW8PxQYQwmcjpkIVx gAwkFU3uFAAmwreyVVBxvN9oUR YcR5b7QgVcXwA9BQojN0VvNALe mmsrTw25gA3qAuByYjW7NKes R2TndjS0TGXgdHEvHHrsBEY2Q5 1od9U4ZTWnWYIyDEC7eRJ5nD6v bGlnbjogbGVmdDsgdmVydGlj PVrjQVxkJ863SGDwkTprVcOlFW luZyBEYXRlOiAgMDQvMjAvMjAy MzwvdGQ+XZRcDMB9uEfaWFEs oUVcKXowNx7ovCifzEocBW8iPB XboaalLCAkuO9bZMFmqGYlcEou RY8sCDQwkczlf677BsUuJEZ0 SIIrtCTlA7JdnQ3vUkYuSOAwHK IaE3VdvFZlQSxvO674XTxhHjR6 FWOivePqH5SmHTMbkImsVnE5 b1F9Yu9Kd6IpirjzI7VzoYGhYl RrEtyyUFi8P2BgTpnfbJS+PC90 EBUwWS80UYf5BJS4aOfdDBvw WBDaP2GwjZ2fAvTgQKCqMHIpDm c+PHRhYmxlIHdpZHRoPScxMDAl RhVmaDbrAH7vAi7oDGBgHHFg zXownACvTxYzj8ouCVPbRXoxHL 7txMiwH9AvqLS1DIMui2q4Vf81 P32wK5GzkTY+FVCtrTW9iHZ2 rA1jPtTnNxJ9ESqtX454GvUthB CqKgouj5nco9ejgRd4HkX2ESGd kvNiqVrdQJY5j4AfIf52S70j IHdpZHRoPSIxNSUiIHZhbGlnbj 3drN6xEf0+MBEdpXJ7dEW0xY0x GhWsKgJ6ZCmeI104WoDkwJBz Rstwi1jun6unmYh4QqAyFQMjrs NxaLuqXLP7c3YhPc37K9KybKdk u1TmNfh9ny28bHJvt2V0jRC4 T4JbAAVcymecnZDryHecVX0yGW PakekbRKHcxV3nEKAuO4s0SdWt DsQ4SAsbI5McmtK0NFBrlZFs MIVzwBDRcG0peafaq1zdmdrlJj BpTJHnULd4ZWi0JSUkvAmeSoCv PIB5GnL1CYB4nCKbuP1fnWwh zyesiS8iTxx+KCL4kWGqzHLXYP 1lOjwvdGQ+XWCzCTX7lEhrXOve NDLeuR1kIZMlZ9p9XeXpFbA3 TPwoW9JwreH8RJGaaUHvRTKxsK EUrZ4bavsnt6jgmgjjVqKsPNYn ASc4CHo7TTIrcRltOdWlAMH9 ArI0OBN3lYCpfW4vcSofhxdiiR 9wOyc+BapqeMbwAWF0GUr0E0Xk Loj7QNIvdXzzYT3icMYhKVym Dl5oxDigkInfCU0zANXazukee0 32RjMlv0omLSKctVAxJWqnYOS5 G14ku0W0LPRhNZEpAYQ4pKM9 qM6wnWwigotuuACnuTszgtVvgD npLZufYNqlD153GPIiqOkmChPi UJz1I7ToHfy5LEKwjYcuTX2m eAVqNCboYk4ddWyurQfzSO2gEK Nvxzeeq591AqPys0avWOGwcFBd VCkhRWS7D70pk5R9WPCnHWXx VSO4tWR1yX0stSkmcqmprIEwmE irgqMgiUimEIscPUufU415FPHo gGmjKxKjmLs1O0LeFnr4ONPf rIvsHF5yoGYkTQerRo2maZmxyB vaSU7hKBVmzvxrd470EzDcb0qt SDDmfBUlCXloAJD3X65va8F7 CREwVKPcGNX8sJA8dK9lkRewmv ogbGVmdDsgdmVydGljYWwtYWxp E907TYXhxBbgMqLvfNcondJc QJxgNDx7B4IdKqsinVJ+PC90YW UwEQ37hKZleLObg1ntzCn7UmTy FPRqDDQ6dQfcLHwvy6NnDNDj C11lkNRau8X2WKBgrKujfLWsNt RbpYC5rB4wIEprpstoa4cqqfcj Bwfky2ooty19eO22V58pQFie YPWpWRHfQNNvAYDyiEnpaq6zgB 9wIi8+PIEzbFE0vBP4nB3bVDHv PaA1KUjaG476NwFmaXTtPbog e0xdk5sucIt4WnC5EJEmhhMvyQ xyQEL4z6XhHq57E19oAYzdLWVy DIArVLGnOMWjjUxems4utA3j Ii8+DXNblTX9dTU2uN9iFzCcOp W9MCzfS206RfXtuSCxQeomO19r W4EhmDK+YHSjEob2LJEtbKfn HE0doJHiNRkfLq4pLTC7DaNlSu HeYNsbL4LtJQDphsyrprcqmNA8 UGLiKUQckC12Qe9ijYdqRIQv zMPVfB3lufoqk1glgnyzIhTlFU DaKFl4DTn0ICFqzJcqPwMpHUW3 NoU3NEB9fGAcpT3ceMdkhtgh bA4aD5CpJDNpiclfQo69sV4sLs UpWsM3HDrcMtk+DSYSWC4XDwdk ErJQPdZHNLILZV53XY28wMEr i7C6oLD5F2JhCOYcdrdycdmumI U9HSNhOCOyrN11eOXhNPeeHa2t n1B3u576XZZkVNRlsW04Dm3j dViiZZUgvARKwO7rqdedz7oqyq dkJpVaOPSrHTi7ZRv8OFOmgBwe GcEoZGD7RiI2KXM7uPPqkJ1t jZoczecplD9dYar+MDIvMDQvMT c6UiruoXX+BKNoODC7yVbwEYfb CZJvhF6oUNWiV2c3HpYhWzG9 SSsoN8CqZHVxbqakTg10qN1sEm RjLrM1ILqlQ7UxobB5UCVhbDAu JJbeLCA2M88dc4T5FFGjDJHm LQY6iFB5xQ1wuSoeqisvyNAetE ambnPkeGtwGHgaMPshN558EJRa gAujIlvfFMbxQKCtPJ26SH24 wVRsk9V5rWE5W0AsKKBnmsgsxk inpYZ1XAWfAPFtxQ40pFXrXPbm Oa0ol8R6d101QHFlSDWgaX84 Ed4iqDimAQWpkWBPaU5kmlzvn5 ysdxwbHwEpMYFiCFl8UQi8KGHc bJbgHsRyZAB3OhG9HQX8mDPh cL4jdUjgjczylF6iJxy+TWFsZT wvdGQ+EKHtINV3fFecIZnzXPEs vL3aEWJuE7l5AfUhKeY3PJjd F3PtEIAviwajGy07aL0pSiAbBd U8KSjcP8ZwcdG8VYVjhKKeSQjy NZN0P50cb5F9PRVlDROaRLB4 zON8cC5fwNyvnwqzcPBqlQqums HgmOcvLFfjBFpiG594ZINbmIvt AbNaPdJcJZJzgdidN2MaHREV VWujR2BvC3XlcBkmvDF+PC90cj 01B9XbXczqPxl1EVYlDOX0lMW7 yU0rQJVlKMjiv0C8eIK3S1Ux uhTvka7fe8jqKOBrXIvbC69myQ Zmt7Y9CAZrpQD6MPIsyPtgEiIa wT74Cwz+VXGhhEvck3ZhQxpu y0gnv3pimFw1PxWyUBCigwEpbS flEXC1y1RzQt95V96gIArtHTJr UUDiITQgJDXrtRnhku3bqW7j Ii8+HIUbmDB8kHN5nS3kFhKsOy W4YNdzL131ExHxdILfUkzuh5mq n0fsmTj6CeMlNEHhnwApxSoi HYE2g5SqRq84X8TnyWepn5FbMz x7yl68iGIxc3M2cJV9H5QyZLKf jqewwJEmmJldHK2rXEBqzawk REXheL7vTOXpX6p0UxWpYyE6PT dqS8XtiaS7IYOozMLyNTJbtPZT hC6ybtrmt7dcaurvJgJrMGOf NHl1OId8EKBmaVdnBbRfLML0Tq N5MWH1vMIhhK1luIqidtspfH4x Oyc+FJg2a5lisEQeYM8anLB1 NO14OZ81rCDhx3B1iRM0F5GuFR CtjddcciexoEY0BNJbAIMgbU17 Xc4nwPgyVt0qZFQpDLI4FLQa nCElG9YhoS3cUbQyTNNkAFLpH7 ZynMKcJQimA175UMrhKpV9FQGa onVlP6HpBQIhmIpyFoC6m4L6 Rz5QWX82AE05ON61iFHoy2B1hV J8B2LpMYZgpbmyhqmccLX5PNZg EQKkjX87Ed4fsZniQj8kEVQf YWP3UFMorFWvI3ErdJ0xQkPaDP FtXAHnC6VoxTQkLEilR174HDla QlP6XUYenuKiD9FiQLIhgGei WnZ4c2Q8Nv4JFc58ZC40GT39vG Ttf9V1zKM1K4XiZDCdykzaarhg wZM1WWRuWIUmdM64Ha1dbAok Zt7pNYRkQHY8WDHpnDFwE5FjrS 6xQzWpJPDdGRKiI0QtsXUwKDtt Q849CLrkPdR9ZCHpueQuX4Lk CEYxxDxwGeF1l4G9Ax2KWKpmhw d6Y3TiCufkmFK+YH87YEZeNH90 ePIhjPWvq6qpoZj9DlMcSPGy BJS6zIqo (more content not included)... Normal [facility] Office Visiton 10-14-2022 Follow-up visit [id number] Ruben Smyth 1940 M Date Provider Department Center 10/14/[address] [facility] Family History Problem Relation Age of Onset No Known Problems Mother No Known Problems Father Family Status - Relation Status Age at Mother Father Level of Service:68418 [place] OFFICE/OUTPATIENT ESTABLISHED MOD MDM 30-39 MIN Reason for Visit and Comments: Chest Pain [051010] Coronary Artery Disease [187] Hypertension [066646] Normal [facility] PROF CHEM 8 (BAS METB)on Anion gap [Moles/Vol] 13.9 mmol/L Normal [facility] Comment on above: Performed By: #### T SH, LIPID, T4, FT3, CMP #### [facility] [address] [place] [address] Dr. Alicia Patel Calcium [Mass/Vol] 8.3 mg/dL Critically low 8.5-10.1 [facility] Comment on above: Performed By: #### T SH, LIPID, T4, FT3, CMP #### [facility] [address] [address] [address] Alicia Patel Chloride [Moles/Vol] 108 mmol/L Critically high 98-107 [facility] Comment on above: Performed By: #### T SH, LIPID, T4, FT3, CMP #### [facility] [address] [address] [address] Alicia Patel CO2 [Moles/Vol] 23.5 mmol/L Normal 21.0-32.0 [facility] Comment on above: Performed By: #### T SH, LIPID, T4, FT3, CMP #### [facility] [address] [place] [address] Dr. Alicia Patel Creatinine [Mass/Vol] 2.41 mg/dL Critically high 0.70-1.30 [facility] Comment on above: Performed By: #### T SH, LIPID, T4, FT3, CMP #### [facility] [address] [address] [address] lAicia Patel EGFR-AF PERUVIAN 32 mL/min/1.73m2 Critically low >=60 [facility] Comment on above: Performed By: #### T SH, LIPID, T4, FT3, CMP #### [facility] [address] [place] [address] Dr. Alicia Patel EGFR-NON AF PERUVIAN 26 mL/min/1.73m2 Critically low >=60 [facility] Comment on above: Performed By: #### T SH, LIPID, T4, FT3, CMP #### [facility] [address] [place] [address] Dr. Alicia Patel Glucose [Mass/Vol] 74 mg/dL Normal 74-106 [facility] Comment on above: Performed By: #### T SH, LIPID, T4, FT3, CMP #### [facility] [address] [place] [address] Dr. Alicia Patel Potassium [Moles/Vol] 4.4 mmol/L Normal 3.5-5.1 [facility] Comment on above: Performed By: #### T SH, LIPID, T4, FT3, CMP #### [facility] [address] [place] [address] Dr. Alicia Patel Sodium [Moles/Vol] 141 mmol/L Normal 136-145 [facility] Comment on above: Performed By: #### T SH, LIPID, T4, FT3, CMP #### [facility] [address] [place] [address] Dr. Alicia Patel Urea nitrogen [Mass/Vol] 36.0 mg/dL Critically high 7.0-18.0 [facility] Comment on above: Performed By: #### T SH, LIPID, T4, FT3, CMP #### [facility] [address] [place] [address] Dr. Alicia Patel Urea nitrogen/Creatinine [Mass ratio] 14.9 mg/mg Normal [facility] Comment on above: Performed By: #### T SH, LIPID, T4, FT3, CMP #### [facility] [address] [place], [place] [address] Dr. Alicia Patel TROPONIN, HIGH SENSITIVITYon 10-14-2022 HSTROP 9.6 pg/mL Normal 4.0-76.1 [facility] Comment on above: Result Comment: CUT- OFF POINTS HAVE BEEN ESTABLISHED BASED ON THE FOURTH UNIVERSAL DEFINITIONS OF MYOCARDIAL INFARCTION. THE UPPER REFERENCE LIMIT (URL) OF TROPONIN, DEFINED THE 99TH PERCENTILE OF cTnI DISTRIBUTION IN A REFERENCE POPULATION, HAS BEEN CONFIRMED THE DECISION THRESHOLD FOR [place] DIAGNOSIS. Performed By: #### T SH, LIPID, T4, FT3, CMP #### [facility] [address] [place], [place] [address] Dr. Alicia Patel Main OR Intraoperative Recor don 10-13-2022 Main OR Intraoperative Record IntraOp Document Type FT Summary Primary Physician: Ni OLIVARES MD Finalized Date/Time: 10/13/22 15:17:44 Pt. Name: VICTORINO SMYTH/Sex: 1940 Male Med Rec #: [id number] Physician: Ni OLIVARES MD Financial #: [id number] Pt. Type: A Room/Bed: [place] [address] Admit/Disch: 10/07/22 09:01:16 - 10/07/22 17:40:00 Institution: Case Times FT Entry 1 Patient Times In Room 10/07/22 15:01:00 Out Room 10/07/22 15:42:00 Procedure Times Start 10/07/22 15:08:00 Stop 10/07/22 15:35:00 Anesthesia Times Start 10/07/22 15:01:00 Stop 10/07/22 15:42:00 Last Modified By: Aravind Gatica 10/07/22 15:42:16 General Comments: 10/13/22 Chart opened to review and send charges LRoth CSFA Case Attendance FT Entry 1 Entry 2 Entry 3 Case Attendee Toya OLIVEROS, Timothy OLIVARES MD, Aravind Skinner Role Performed Anesthesiologist of Surgeon - Primary Screening Specialist - Primary Record Time In 10/07/22 15:01:00 10/07/22 15:01:00 10/07/22 15:01:00 Time Out 10/07/22 15:42:00 10/07/22 15:30:00 10/07/22 15:42:00 Procedure EXTRACORPOREAL SHOCK EXTRACORPOREAL SHOCK EXTRACORPOREAL SHOCK WAVE LITHOTRIPSY(Right) WAVE LITHOTRIPSY(Right) WAVE LITHOTRIPSY(Right) Comments Last Modified By: Aravind Gatica Terry T Sweene, Terry T 10/07/22 15:42:17 10/07/22 15:42:17 10/07/22 15:42:17 Entry 4 Case Attendee Hali Ruffin Role Performed Scrub - Primary Time In 10/07/22 15:01:00 Time Out 10/07/22 15:42:00 Procedure EXTRACORPOREAL SHOCK WAVE LITHOTRIPSY(Right) Comments Last Modified By: Aravind Gatica 10/07/22 15:42:17 General Comments: DAVID HARKINS - ESWThang REP HERE FOR CASE. Justine GATICA RN. Perioperative Protocols FT Pre-Care Text: Implements protective measures prior to operative or invasive procedure, confirms identity before the operative or invasive procedure, verifies operative procedure, surgical site, and laterality Entry 1 Procedure(s) EXTRACORPOREAL SHOCK Patient Identity Birthday, ID Band WAVE LITHOTRIPSY(Right) Verified (select at Check, Patient least 2): Participation Consents / H and P Anesthesia Consent, Operative Site N/A Verified HandP, Surgery/Procedure Marking Verified Consent Surgical Site Yes Laterality Verified n/a Verified Procedure Verified Yes Correct Patient Yes Position Verified Prep Dry n/a Time Out Toya OLIVEROS, CARLOS Medina MD, En Merritt Terry T, Scott, Sarah M Time Out Complete 10/07/22 15:07:00 Outcomes Met? Yes Last Modified By: Aravind Gatica 10/07/22 15:16:20 Post-Care Text: The patient is free from signs and symptoms of injury caused by extraneous objects General Comments: PREOP ANTIBIOTIC DISCONTINIUED BY DR. OLIVARES. Justine GATICA RN. Allergy Information FT Pre-Care Text: Verifies allergies Entry 1 Allergies Reviewed? Yes Allergies Reviewed Self/Patient With Outcomes Met? Yes Last Modified By: Aravind Gatica 10/07/22 15:16:04 Post-Care Text: The patient received appropriate medication(s) safely administered during the perioperative period Surgical Procedures FT Entry 1 Procedure Description Procedure EXTRACORPOREAL SHOCK Modifiers Right WAVE LITHOTRIPSY Surgeon Description RIGHT ESWL Primary Procedure Yes Primary Surgeon Ni OLIVARES MD Start 10/07/22 15:08:00 Stop 10/07/22 15:35:00 Anesthesia Type General Surgical Service Urology Wound Class 1 - Clean Last Modified By: Aravind Gatica 10/07/22 15:42:20 General Case Data FT Pre-Care Text: Classifies surgical wound, implements aseptic technique, initiates traffic control Entry 1 Case Information OR OR 5 FT Case Level Level 2 Wound Class 2 - Clean-Contaminated Specialty Urology ASA Class 3 Preop Diagnosis KIDNEY STONE RIGHT Postop Same As Preop Yes Postop Diagnosis KIDNEY STONE RIGHT Outcomes Met? Yes Last Modified By: Ruth Ann Mckenzie CST 10/13/22 15:17:38 Post-Care Text: The patient is free from signs and symptoms of infection Skin Assessment (Pre Procedure) FT Pre-Care Text: Implements protective measures to prevent skin/ tissue injury due to thermal or mechanical sources Evaluates for signs and symptoms of physical injury to skin and tissue Entry 1 Skin Integrity Intact, Orient, Warm, and Skin Abnormality No Dry Outcomes Met? Yes Last Modified By: Aravind Gatica 10/07/22 15:17:14 Post-Care Text: The patient is free from signs and symptoms of injury caused by extraneous objects Patient Positioning FT Pre-Care Text: Identifies physical alterations that require additional precautions for procedure-specific positioning, verifies presence of prosthetics or corrective devices, positions the patient, evaluates the patient for signs and symptoms of injury as a result of positioning Entry 1 Procedure EXTRACORPOREAL SHOCK Body Position Supine WAVE LITHOTRIPSY(Right) Feet Uncrossed? Yes Left Arm Position Resting at Side Right Arm Position Resting at Side (more content not included)... Normal [facility] Consent for Anesthesiaon Consent for Anesthesia [id number]#1.00CD:127 Normal [facility] Discharge Instructionson Discharge Instructions [id number]#1.00CD:127 Normal [facility] IntraOperative Documentson 0 10-08-2022 IntraOperative Documents [id number]#1.00CD:127 Normal [facility] IntraOperative Documents [id number]#1.00CD:127 Normal [facility] IntraOperative Documents [id number]#1.00CD:127 Normal [facility] Preoperative Documentson Preoperative Documents [id number]#1.00CD:127 Normal [facility] Preoperative Documents [id number]#1.00CD:127 Normal [facility] Preoperative Documents [id number]#1.00CD:127 Normal [facility] XR Abdomen 1 Viewon 10-09-19 23 XR Abdomen 1 View Exam Date/Time: 10/07/2022 09:20 EDT Reason for Exam: Kidney stone Report IMPRESSION: Right ureteral stent. No distinct collecting system calcifications radiographically as discussed. EXAMINATION/TECHNIQUE: XR Abdomen 1 View HISTORY: Presurgical assessment. Kidney stones. COMPARISON: None RESULT: Right ureteral stent. No distinct calcifications radiographically along the course of the stent. No distinct calcifications projecting over the right kidney, with significant limitations from patient body habitus and bowel gas. No distinct calcifications projecting over the left kidney or course of the left ureter. Few small pelvic phleboliths. Nonspecific nondilated bowel gas pattern. Splenic granulomas. Lung bases unremarkable. No acute osseous findings. Degenerative changes. No other significant abnormality. Ordering Provider: Ni OLIVARES FINAL REPORT Dictated: 10/08/2022 10:59 am Amadeo Castellanos MD Signed (Electronic Signature): 10/08/2022 10:59 am Signed by: Amadeo Castellanos MD Transcribed by: HODA Technologist: MITUL Technical Comments Radiation Dose: Ka,r in mGy = 0 DAP = 0 Normal [facility] CHEMISTRYOrdered By: Lab ROP User on 10-07-2022 Glucose [Mass/Vol] 101 mg/dL High 55 - 99 mg/dL [facility] POC Subsection Comment on above: Result Comment: Jackelin quach RN/ POC Device SN [id number] Invalid Interpretation Code FT POC Subsection POC User ID [id number] Invalid Interpretation Code [facility] POC Subsection POC Username BEE NORRIS Invalid Interpretation Code [facility] POC Subsection Capillary Glucose POCon 09-25 Glucose [Mass/Vol] 101 mg/dL High 55-99 [facility] Comment on above: Result Comment: Jackelin quach RN/ Performed By: #### 2 [id number] #### [facility] [address] [place] [address] Consent for Procedure/Surger yon 10-07-2022 Consent for Procedure/Surgery [id number]#1.00CD:127 Normal [facility] Consent for Treatmenton 09-25 Consent for Treatment [id number]#1.00CD:127 Normal [facility] H&P Updateon 10-07-2022 H&P Update [id number]#1.00CD:127 Normal [facility] Inpatient Patient Summaryon 10-07-2022 Inpatient Patient Summary [address] [address] [facility] Clinical Discharge Instructions PERSON INFORMATION Name: VICTORINO SMYTH PHYSICIANS Admitting Physician: Ni OLIVARES MD Attending Physician: Ni OLIVARES MD PCP: Erum OLIVEROS, Tray Discharge Diagnosis: Comment: PATIENT EDUCATION INFORMATION Instructions: Post Op Patient Instructions - FT (CUSTOM); Lithotripsy, Care After Medication Leaflets: Follow up: With: Address: When: Ni OLIVARES [address] [place] [address], [address], [address] [address] Business (1) Comments: We were able to find the stone under x-ray and perform the external stone blasting procedure. Please call my office so we can arrange for a kidney ultrasound study within the next couple weeks or so. Depending on the findings the next step will be either to remove the stent or, more likely, would be to go up into the kidney now to remove the remaining fragments. The possibility of laser ablation may need to be considered. Take it easy for the next forty-eight hours. Also, please contact Dr. Alfaro regarding your cardiac symptoms. Anesthesia requested that you have further evaluation prior to considering any other anesthesia procedures. Type Location Start Finish State URO Office Visit [facility] EU [place] 10/29/2022 8:45 AM 10/29/2022 9:00 AM Confirmed MEDICATION LIST New Medications [id number], [address], [place] [id number], [phone] acetaminophen-hydrocodone (acetaminophen-hydrocodone 325 mg-5 mg oral tablet) 1 Tablets By Mouth every 4 hours as needed Pain for 2 Days. Refills: 0. Medications to Continue with No Changes Other Medications albuterol (Ventolin Diskus) amlodipine (amLODIPine 10 mg Tab) 0.5 Tablets By Mouth every day. atorvastatin (atorvastatin 80 mg Tab) 1 Tablets By Mouth every day. cholecalciferol (Vitamin D3) 50 Microgram By Mouth every day. diclofenac (diclofenac sodium 75 mg Oral EC Tab) 1 Tablets By Mouth 2 times a day. glimepiride (glimepiride 4 mg Tab) 1 Tablets By Mouth at bedtime. glucosamine (glucosamine 500 mg Cap) 1 Capsules By Mouth every day. isosorbide mononitrate (isosorbide mononitrate 60 mg ER Tab) 1 Tablets By Mouth once a day (in the morning). levothyroxine (levothyroxine 50 mcg (0.05 mg) Tab) 1 Tablets By Mouth every day. liothyronine (liothyronine 5 mcg Tab) 1 Tablets By Mouth every day. lisinopril (lisinopril 10 mg Tab) 2 Tablets By Mouth every day. metoprolol (metoprolol 50 mg ER Tab) 1 Tablets By Mouth every day. multivitamin (Vitamin B Complex oral capsule) 1 Capsules By Mouth every day. nitroglycerin (nitroglycerin 0.3 mg sublingual tablet) 1 Tablets Sublingual every 5 minutes as needed for chest pain. pioglitazone (pioglitazone 15 mg Tab) 1 Tablets By Mouth every day. sildenafil (Viagra 100 mg Tab) 1 Tablets By Mouth As Directed. 1 hour before sexual activity. Refills: 2. sitagliptin (Januvia 100 mg Tab) 1 Tablets By Mouth every day. tiotropium (Spiriva Respimat 1.25 mcg/inh inhalation aerosol) 2 Puffs Inhalation every day as needed Shortness of breath or wheezing. No Longer Take the Following Medications aspirin (aspirin 81 mg oral capsule) 1 Capsules By Mouth every day. Comment: Normal [facility] Main OR PACU I Recordon 09-25 Main OR PACU I Record PACU Phase I Docum ent Type FT Summary Primary Physician: Ni OLIVARES MD Finalized Date/Time: 10/07/22 16:21:28 Pt. Name: HAJAVICTORINO/Sex: 1940 Male Med Rec #: [id number] Physician: Ni OLIVARES MD Financial #: [id number] Pt. Type: A Room/Bed: [facility]/ Admit/Disch: 10/07/22 09:01:16 - Institution: Case Times PACU I FT Pre-Care Text: Identifies barriers to communication and implements measures to provide psychological support Develops individualized plan of care, and ensures continuity of care Maintains patient's dignity and privacy, and maintains patient confidentiality Identifies and reports philosophical, cultural, and spiritual beliefs and values Identifies individual values and wishes concerning care Implements aseptic technique, and administers prescribed antibiotic therapy and immunizing agents as ordered Evaluates postoperative tissue perfusion Implements thermoregulation measures, and monitors body temperature Evaluates postoperative respiratory status Evaluates postoperative cardiac status Evaluates postoperative neurological status Assesses pain control, collaborated in initiating patient-controlled analgesia and implements alternative methods of pain control Verifies allergies, administers prescribed medications and solutions, evaluates response to medications Entry 1 In PACU I 10/07/22 15:46:00 Discharge from PACU 10/07/22 16:16:00 I Outcomes Met? Yes Last Modified By: ALESSIA YOON RN 10/07/22 16:21:14 Post-Care Text: The patient demonstrates knowledge of the expected response to the operative or invasive procedure The patient's care is consistent with the individualized perioperative plan of care The patient's right to privacy is maintained The patient's value system, lifestyle, ethnicity, and culture are considered, respected, and incorporated into the perioperative plan of care The patient participates in decisions affecting his or her perioperative plan of care The patient is free from signs and symptoms of infection The patient has wound/tissue perfusion consistent with or improved from baseline levels established preoperatively The patient is at or returning to normothermia at the conclusion of the immediate postoperative period The patient's respiratory function is consistent with or improved from baseline levels established preoperatively The patient's cardiovascular status is consistent with or improved from baseline levels established preoperatively The patient's cardiovascular status is consistent with or improved from baseline levels established preoperatively The patient demonstrates and/or reports adequate pain control throughout the perioperative period The patient received appropriate medication(s), safely administered during the perioperative period Acuity Level PACU I FT Entry 1 Start Time 10/07/22 15:46:00 Stop Time 10/07/22 16:16:00 Acuity Level Acuity Level I Last Modified By: ALESSIA YOON RN 10/07/22 16:21:25 Finalized By: ALESSIA YOON RN Document Signatures Signed By: ALESSIA YOON RN 10/07/22 16:21 Normal [facility] Main OR PACU II Recordon Main OR PACU II Record PACU Phase II Doc ument Type FT Summary Primary Physician: Ni OLIVARES MD Finalized Date/Time: 10/07/22 18:36:17 Pt. Name: VICTORINO SMYTH/Sex: 1940 Male Med Rec #: [id number] Physician: Ni OLIVARES MD Financial #: [id number] Pt. Type: A Room/Bed: AS06/ Admit/Disch: 10/07/22 09:01:16 - 10/07/22 17:40:00 Institution: Case Times PACU II FT Pre-Care Text: Identifies barriers to communication and implements measures to provide psychological support and determines knowledge level Develops individualized plan of care, and ensures continuity of care Maintains patient's dignity and privacy, and maintains patient confidentiality Identifies and reports philosophical, cultural, and spiritual beliefs and values Identifies individual values and wishes concerning care administers prescribed antibiotic therapy and immunizing agents as ordered, Evaluates postoperative tissue perfusion Implements thermoregulation measures, and monitors body temperature Evaluates postoperative respiratory status Evaluates postoperative cardiac status Evaluates postoperative neurological status Assesses pain control, collaborated in initiating patient-controlled analgesia and implements alternative methods of pain control Verifies allergies, administers prescribed medications and solutions, evaluates response to medications Entry 1 In PACU II 10/07/22 16:20:00 Discharge from PACU 10/07/22 17:40:00 II Outcomes Met? Yes Last Modified By: Eliz Mcbride RN 10/07/22 18:35:14 Post-Care Text: The patient demonstrates knowledge of the expected response to the operative or invasive procedure The patient's care is consistent with the individualized perioperative plan of care The patient's right to privacy is maintained The patient's value system, lifestyle, ethnicity, and culture are considered, respected, and incorporated into the perioperative plan of care The patient participates in decisions affecting his or her perioperative plan of care. The patient is free from signs and symptoms of infection The patient has wound/tissue perfusion consistent with or improved from baseline levels established preoperatively The patient is at or returning to normothermia at the conclusion of the immediate postoperative period The patient's respiratory function is consistent with or improved from baseline levels established preoperatively The patient's cardiovascular status is consistent with or improved from baseline levels established preoperatively The patient's neurological status is consistent with or improved from baseline levels established preoperatively The patient demonstrates and/or reports adequate pain control throughout the perioperative period The patient received appropriate medication(s), safely administered during the perioperative period Finalized By: Eliz Mcbride RN Document Signatures Signed By: Eliz Mcbride RN 10/07/22 18:36 Normal [facility] Main OR Preoperative Recordo n 10-07-2022 Main OR Preoperative Record PreOp Document Type FT Summary Primary Physician: Ni OLIVARES MD Finalized Date/Time: 10/07/22 15:12:57 Pt. Name: VICTORINO SMYTH/Sex: 1940 Male Med Rec #: [id number] Physician: Ni OLIVARES MD Financial #: [id number] Pt. Type: A Room/Bed: Admit/Disch: 10/07/22 09:01:16 - Institution: Case Times PreOp FT Pre-Care Text: Verifies consent for planned procedure, identifies individual values and wishes concerning care, includes family members in perioperative teaching Entry 1 Patient Times. In Pre Surgery 10/07/22 09:25:00 Out Pre Surgery 10/07/22 14:59:00 Outcomes Met? Yes Last Modified By: Aravind Gatica 10/07/22 15:12:46 Post-Care Text: The patient participates in decisions affecting his or her perioperative plan of care Finalized By: Aravind Gatica Document Signatures Signed By: Aravind Gatica 10/07/22 15:12 Aravind Gatica 10/07/22 15:12 Normal [facility] Monitor Recordon 10-07-2022 Monitor Record [id number]#1.00CD:127 Normal [facility] Monitor Record [id number]#1.00CD:127 Normal [facility] Operative Reporton 3 Operative Report Patient: SHERYL SMYTH Age: 82 years Sex: Male : 1940 Associated Diagnoses: None Author: Ni OLIVARES MD Postoperative Information Date/ Time: 10/07/2022 15:48:00 Postoperative Diagnosis: Right renal calculus Status post right JJ stent. Performed by: Ni Olivares MD. Findings: Procedure: ESWL right renal calculus Anesthesia: General, LMA Indications: This is an 82-year-old white male who is status post cystoscopy and a right double-J stent secondary to a large obstructing 1.5 cm calculus. The patient has been in florid renal failure at the time. He presents today for lithotripsy with the possibility of a cystoscopy and retrograde pyelogram. The stone was not well seen on the preoperative KUB. He understands risk and benefits and details of this procedure including risk of bleeding, infection, bleeding around the kidney, need for additional procedures, heart and lung problems under anesthesia, among others. He does have sequential compression devices in place and functional bilateral lower extremities throughout the case. Procedure: The patient was brought back to the operating room and a timeout was performed. All are in agreement with the operative plan. After the successful induction of general anesthesia he is placed in the supine position on the Siemens litho-Star lithotripsy table. Under C arm fluoroscopic imaging the stone was actually visualized. Therefore it was not indicated to proceed with a cystoscopy and retrograde pyelogram. Per protocol a total of 3000 shocks are given up to level 3.5. There was a pause at 200 shocks. There appears to be stone fragmentation. He tolerates it well. [facility] back to [facility]U in satisfactory condition, stable vital signs. Plan will be for discharge home with plans to follow-up with a kidney ultrasound within the next couple weeks. Depending on findings, the next step may be for a retrograde ureteroscopic/nephroscopic approach with possible laser ablation to complete the obliteration of the stone given its large size. Discussed all this with the patient's postoperatively and she is in agreement with the plan. Additionally preoperative anesthesia evaluation revealed the patient was having some difficulties walking long distances and he had to rest and sit down and then walk again. 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 Jose Alfaro to arrange for possible further follow-up regarding this. She was in agreement with the plan.. Estimated Blood Loss: 0 ml. Complications: None. Anesthesia type: General. Normal [facility] Comment on above: Result Comment: Elec tronically Signed By: Ni OLIVARES MD\.br\Date and Time Signed: 10/07/22 15:51 EDT Outpatient Surgery Discharge Instructionon 10-07-2022 Outpatient Surgery Discharge Instruction [address] [address] Patient Discharge Instructions PERSON INFORMATION Name: VICTORINO SMYTH Date of : 1940 Current Date: 10/07/2022 16:31:30 PHYSICIANS Admitting Physician: Ni OLIVARES MD Discharge Diagnosis: VICTORINO SMYTH has been given the following list of follow-up instructions, prescriptions, and patient education materials: PATIENT FOLLOW-UP INFORMATION Diet: Calorie Controlled- 2000 Calorie Diet Discharge Activity: Arrange for a responsible adult supervision for 24 hours, Expect mild pain, Expect minimal amount of drainage and/or bleeding Discharge Restrictions: No driving, Do not operate machinery or tools, Do not make important decisions for 24 hours, Do not drink alcoholic beverages for 24 hours Call Your Doctor For: Persistent or heavy bleeding, Temperature above 101.5 degrees IF UNABLE TO CONTACT YOUR PHYSICIAN AND YOU FEEL IT IS AN EMERGENCY, GO TO THE NEAREST EMERGENCY ROOM OR CALL 911 HAJA Gibbons BERNARD M, have received the attached patient education materials/instructions and have verbalized understanding: May we do a follow up call? Yes No I was present when discharge instructions were given ____ Patient Signature _ Date Clinican/Nurse Signature Date Follow up: With: Address: When: Ni OLIVARES [address] [place], [place] [address]K[place], [address], [place] [phone] Business (1) Comments: We were able to find the stone under x-ray and perform the external stone blasting procedure. Please call my office so we can arrange for a kidney ultrasound study within the next couple weeks or so. Depending on the findings the next step will be either to remove the stent or, more likely, would be to go up into the kidney now to remove the remaining fragments. The possibility of laser ablation may need to be considered. Take it easy for the next forty-eight hours. Also, please contact Dr. Alfaro regarding your cardiac symptoms. Anesthesia requested that you have further evaluation prior to considering any other anesthesia procedures. Type Location Start [facility] Office Visit [facility] [place] 10/29/2022 8:45 AM 10/29/2022 9:00 AM Confirmed Pharmacy Information: You may receive a survey from Chriss Brown asking you to rate your care experience. Your feedback is important and will help us understand what we do well and how we can improve the quality of care we provide to you, your loved ones and our community. It?s an honor to serve you. Thank you for choosing [facility] HERE ARE THE MEDICATION CHANGES THAT OCCURRED DURING YOUR HOSPITAL STAY New Medications [id number], [address], [place] [id number], [phone] acetaminophen-hydrocodone (acetaminophen-hydrocodone 325 mg-5 mg oral tablet) 1 Tablets By Mouth every 4 hours as needed Pain for 2 Days. Refills: 0. Medications to Continue with No Changes Other Medications albuterol (Ventolin Diskus) amlodipine (amLODIPine 10 mg Tab) 0.5 Tablets By Mouth every day. atorvastatin (atorvastatin 80 mg Tab) 1 Tablets By Mouth every day. cholecalciferol (Vitamin D3) 50 Microgram By Mouth every day. diclofenac (diclofenac sodium 75 mg Oral EC Tab) 1 Tablets By Mouth 2 times a day. glimepiride (glimepiride 4 mg Tab) 1 Tablets By Mouth at bedtime. glucosamine (glucosamine 500 mg Cap) 1 Capsules By Mouth every day. isosorbide mononitrate (isosorbide mononitrate 60 mg ER Tab) 1 Tablets By Mouth once a day (in the morning). levothyroxine (levothyroxine 50 mcg (0.05 mg) Tab) 1 Tablets By Mouth every day. liothyronine (liothyronine 5 mcg Tab) 1 Tablets By Mouth every day. lisinopril (lisinopril 10 mg Tab) 2 Tablets By Mouth every day. metoprolol (metoprolol 50 mg ER Tab) 1 Tablets By Mouth every day. multivitamin (Vitamin B Complex oral capsule) 1 Capsules By Mouth every day. nitroglycerin (nitroglycerin 0.3 mg sublingual tablet) 1 Tablets Sublingual every 5 minutes as needed for chest pain. pioglitazone (pioglitazone 15 mg Tab) 1 Tablets By Mouth every day. sildenafil (Viagra 100 mg Tab) 1 Tablets By Mouth As Directed. 1 hour before sexual activity. Refills: 2. sitagliptin (Januvia 100 mg Tab) 1 Tablets By Mouth every day. tiotropium (Spiriva Respimat 1.25 mcg/inh inhalation aerosol) 2 Puffs Inhalation every day as needed Shortness of breath or wheezing. No Longer Take the Following Medications aspirin (aspirin 81 mg oral capsule) 1 Capsules By Mouth every day. PATIENT EDUCATION INFORMATION Instructions: Lithotripsy, Care (more content not included)... [facility] Patient Education - Texton 0 10-07-2022 Patient Education - Text Nephrology Lithotripsy, Care After This sheet gives you information about how to care for yourself after your procedure. Your health care provider may also give you more specific instructions. If you have problems or questions, contact your health care provider. What can I expect after the procedure? After the procedure, it is common to have: ? Some blood in your urine. This should only last for a few days. ? Soreness in your back, sides, or upper abdomen for a few days. ? Blotches or bruises on your back where the pressure wave entered the skin. ? Pain, discomfort, or nausea when pieces (fragments) of the kidney stone move through the tube that carries urine from the kidney to the bladder (ureter). Stone fragments may pass soon after the procedure, but they may continue to pass for up to 4?8 weeks. ? If you have severe pain or nausea, contact your health care provider. This may be caused by a large stone that was not broken up, and this may mean that you need more treatment. ? Some pain or discomfort during urination. ? Some pain or discomfort in the lower abdomen or (in men) at the base of the penis. Follow these instructions at home: Medicines ? Take jhnu-ljj-effbbuz and prescription medicines only as told by your health care provider. ? If you were prescribed an antibiotic medicine, take it as told by your health care provider. Do not stop taking the antibiotic even if you start to feel better. ? Do not drive for 24 hours if you were given a medicine to help you relax (sedative). ? Do not drive or use heavy machinery while taking prescription pain medicine. Eating and drinking ? Drink enough water and fluids to keep your urine clear or pale yellow. This helps any remaining pieces of the stone to pass. It can also help prevent new stones from forming. ? Eat plenty of fresh fruits and vegetables. ? Follow instructions from your health care provider about eating and drinking restrictions. You may be instructed: ? To reduce how much salt (sodium) you eat or drink. Check ingredients and nutrition facts on packaged foods and beverages. ? To reduce how much meat you eat. ? Eat the recommended amount of calcium for your age and gender. Ask your health care provider how much calcium you should have. General instructions ? Get plenty of rest. ? Most people can resume normal activities 1?2 days after the procedure. Ask your health care provider what activities are safe for you. ? Your health care provider may direct you to lie in a certain position (postural drainage) and tap firmly (percuss) over your kidney area to help stone fragments pass. Follow instructions as told by your health care provider. ? If directed, strain all urine through the strainer that was provided by your health care provider. ? Keep all fragments for your health care provider to see. Any stones that are found may be sent to a medical lab for examination. The stone may be as small as a grain of salt. ? Keep all follow-up visits as told by your health care provider. This is important. Contact a health care provider if: ? You have pain that is severe or does not get better with medicine. ? You have nausea that is severe or does not go away. ? You have blood in your urine longer than your health care provider told you to expect. ? You have more blood in your urine. ? You have pain during urination that does not go away. ? You urinate more frequently than usual and this does not go away. ? You develop a rash or any other possible signs of an allergic reaction. Get help right away if: ? You have severe pain in your back, sides, or upper abdomen. ? You have severe pain while urinating. ? Your urine is very dark red. ? You have blood in your stool (feces). ? You cannot pass any urine at all. ? You feel a strong urge to urinate after emptying your bladder. ? You have a fever or chills. ? You develop shortness of breath, difficulty breathing, or chest pain. ? You have severe nausea that leads to persistent vomiting. ? You faint. Summary ? After this procedure, it is common to have some pain, discomfort, or nausea when pieces (fragments) of the kidney stone move through the tube that carries urine from the kidney to the bladder (ureter). If this pain or nausea is severe, however, you should contact your health care provider. ? Most people can resume normal activities 1?2 days after the procedure. Ask your health care provider what activities are safe for you. ? Drink enough water and fluids to keep your urine clear or pale yellow. This helps any remaining pieces of the stone to pass, and it can help prevent new stones from forming. ? If directed, strain your urine and keep all fragments for your health care provider to see. Fragments or stones may be as small as a grain of salt. ? Get help ri (more content not included)... Normal [facility] Progress Note-Physicianon Progress Note-Physician Patient: VICTORINO SMYTH Age: 82 years Sex: Male : 1940 Associated Diagnoses: None Author: Toya OLIVEROS, Timothy Motta Postoperative Information Postoperative disposition: Postoperative disposition: To PACU. Optimetrix number: Optimetrix number [id number]. Anesthetic utilized: General. Physical Examination Vital Signs 10/07/2022 16:17 EDT Systolic Blood Pressure 148 mmHg HI Diastolic Blood Pressure 81 mmHg Mean Arterial Pressure, Monitered 103 mmHg 10/07/2022 16:17 EDT Respiratory Rate 16 br/min 10/07/2022 16:11 EDT Heart Rate Monitored 58 bpm LOW Respiratory Rate Monitored 17 br/min Systolic Blood Pressure 144 mmHg HI Diastolic Blood Pressure 75 mmHg Mean Arterial Pressure, Cuff 98 mmHg SpO2 97 % 10/07/2022 16:00 EDT Heart Rate Monitored 60 bpm Respiratory Rate Monitored 13 br/min Systolic Blood Pressure 137 mmHg Diastolic Blood Pressure 70 mmHg Mean Arterial Pressure, Cuff 92 mmHg SpO2 93 % 10/07/2022 15:55 EDT Heart Rate Monitored 57 bpm LOW Respiratory Rate Monitored 17 br/min Systolic Blood Pressure 128 mmHg Diastolic Blood Pressure 65 mmHg Mean Arterial Pressure, Cuff 86 mmHg SpO2 97 % 10/07/2022 15:50 EDT Heart Rate Monitored 62 bpm Respiratory Rate Monitored 15 br/min SpO2 93 % 10/07/2022 15:46 EDT Temperature Temporal Artery 36.7 DegC Heart Rate Monitored 63 bpm Respiratory Rate Monitored 19 br/min Systolic Blood Pressure 130 mmHg (Modified) Diastolic Blood Pressure 69 mmHg (Modified) Mean Arterial Pressure, Cuff 89 mmHg SpO2 93 % Pain Assessment: Pain Assessment 10/07/2022 16:11 EDT Numeric Pain Scale 0 = No pain 10/07/2022 15:46 EDT Numeric Pain Scale 0 = No pain 10/07/2022 10:13 EDT Numeric Pain Scale 0 = No pain . General: Awake, Alert, Appropriate. Respiratory: Adequate air exchange, Equal bilateral chest wall expansion. Cardiovascular: Stable. Neurological: At Baseline. Assessment Anesthetic outcome No anesthetic complications noted. Review / Management Condition: Stable. Plan Transfer/Discharge: Transfer/Discharge Discharge when meets criteria ( To home ). [facility] Comment on above: Result Comment: Elec tronically Signed By: Timothy Pittman MD\.br\Date and Time Signed: 10/07/22 16:54 EDT Progress Note-Physician Patient: VICTORINO SMYTH Age: 82 years Sex: Male : 1940 Associated Diagnoses: None Author: Timothy Pittman MD Preoperative Information Anesthesia Preop Info: Time patient last ate or drank 10/06/2022 20:00:00. Anesthesia history: Patient history: None. Family history+: None. Informed consent: Signed by patient. Including risks, benefits, and alternatives related to the: Anesthetic plan, Postoperative pain management plan. Re-evaluation prior to induction: Timothy Pittman MD. Initial evaluation reviewed: No significant change. Review of Systems Eye: Negative. Ear/Nose/Mouth/Throat: Negative. Respiratory: Negative. Cardiovascular: Negative. Gastrointestinal: Negative. Genitourinary: Negative. Hematology/Lymphatics: Negative. Endocrine: Negative. Musculoskeletal: Negative. Neurologic: Negative. Health Status Allergies: Allergies (2) Active Reaction ciprofloxacin Rash penicillin Rash Current medications: Home Medications (19) Active acetaminophen-hydrocodone 325 mg-5 mg oral tablet 1 tab(s), PRN, Oral, q4hr amLODIPine 10 mg Tab 5 mg = 0.5 tab(s), Oral, Daily atorvastatin 80 mg Tab 80 mg = 1 tab(s), Oral, Daily diclofenac sodium 75 mg Oral EC Tab 75 mg = 1 tab(s), Oral, BID glimepiride 4 mg Tab 4 mg = 1 tab(s), Oral, Bedtime glucosamine 500 mg Cap 500 mg = 1 cap(s), Oral, Daily isosorbide mononitrate 60 mg ER Tab 60 mg = 1 tab(s), Oral, qAM Januvia 100 mg Tab 100 mg = 1 tab(s), Oral, Daily levothyroxine 50 mcg (0.05 mg) Tab 50 mcg = 1 tab(s), Oral, Daily liothyronine 5 mcg Tab 5 mcg = 1 tab(s), Oral, Daily lisinopril 10 mg Tab 20 mg = 2 tab(s), Oral, Daily metoprolol 50 mg ER Tab 50 mg = 1 tab(s), Oral, Daily nitroglycerin 0.3 mg sublingual tablet 0.3 mg = 1 tab(s), PRN, SubLingual, q5min pioglitazone 15 mg Tab 15 mg = 1 tab(s), Oral, Daily Spiriva Respimat 1.25 mcg/inh inhalation aerosol 2 puff(s), PRN, Inhalation, Daily Ventolin Diskus See Instructions Viagra 100 mg Tab 100 mg = 1 tab(s), Oral, As Directed Vitamin B Complex oral capsule 1 cap(s), Oral, Daily Vitamin D3 50 mcg, Oral, Daily , Medications (1) Active Scheduled: (0) Continuous: (1) Lactated Ringers 1,000 mL 1,000 mL, IV, 150 mL/hr PRN: (0) Problem list: All Problems Acute kidney failure / SNOMED CT 55814004 / Confirmed Anticoagulated / SNOMED CT 852301909 / Confirmed BPH associated with nocturia / SNOMED CT 8514803189 / Confirmed BPH with urinary obstruction / SNOMED CT 4815115593 / Confirmed Chronic obstructive pulmonary disease (COPD) / SNOMED CT 00622750 / Confirmed Coronary artery disease / SNOMED CT 52229597 / Confirmed DM (diabetes mellitus), type 2 / SNOMED CT 423100064 / Confirmed Elevated PSA / SNOMED CT 6034906014 / Confirmed Erectile dysfunction / SNOMED CT 3404368573 / Confirmed Flank pain / SNOMED CT 066357078 / Confirmed H/O: hypothyroidism / SNOMED CT 568927564 / Confirmed Hydronephrosis / SNOMED CT 03425427 / Confirmed Hydronephrosis with ureteral calculus / SNOMED CT 7961565818 / Confirmed Hyperlipidemia / SNOMED CT 13556490 / Confirmed Hyperplastic colon polyp / SNOMED CT 9572150542 / Confirmed Hypertension / SNOMED CT 4633491354 / Confirmed Kidney stone / SNOMED CT 837373371 / Confirmed Myocardial infarct / SNOMED CT 65739933 / Confirmed Occult blood in stools / SNOMED CT 84275234 / Confirmed Postprandial diarrhea / SNOMED CT 58820957 / Confirmed Prostate cancer / SNOMED CT 9945695729 / Confirmed Rheumatoid arthritis / SNOMED CT 465802302 / Confirmed Ureteral stone / SNOMED CT 87778082 / Confirmed Urinary retention / SNOMED CT 508037957 / Confirmed, Active Problems (24) Acute kidney failure Anticoagulated 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 Chronic obstructive pulmonary disease (COPD) Coronary artery disease DM (diabetes mellitus), type 2 Elevated PSA Erectile dysfunction Flank pain H/O: hypothyroidism Hydronephrosis Hydronephrosis with ureteral calculus Hyperlipidemia Hyperplastic colon polyp Hypertension Kidney stone Myocardial infarct Occult blood in stools Postprandial diarrhea Prostate cancer Rheumatoid arthritis Ureteral stone Urinary retention Histories Social History Social & Psychosocial Habits Alcohol 06/21/2019 Use: Current Frequency: 1-2 times per year 09/14/2022 Risk Assessment: Denies Alcohol Use Substance Abuse 04/10/2019 Risk Assessment: Denies Substance Abuse Tobacco 06/21/2019 Tobacco Use: Former smoker, quit more Smokeless tobacco use: Never Type: Cigarettes Stopped at age: 40 Years 03/24/2020 Tobacco Use: Former smoker, quit more 08/18/2020 Tobacco Use: Former smoker, quit more . Physical Examination Vital Signs 10/07/2022 16:18 EDT Heart Rate Monitored 61 bpm SpO2 95 % 10/07/2022 16:17 EDT Systolic Blood Pressure 148 mmHg HI Diastolic Blood Pressure 81 mmHg Mean Kayce (more content not included)... Normal [facility] Comment on above: Result Comment: Elec tronically Signed By: Toya OLIVEROS, Timothy Villanueva.br\Date and Time Signed: 10/07/22 16:52 EDT Coding Summary.on 09-22-2022 Coding Summary. CD:[id number] Ww+PGh lYWQ+UG3NLNBmF26mmVPfyT0eX 0NMTElOSywgQVBQTElOSyIgbmF lSP1emVYuFLZg IC8+YX3pLSNrUjoxcYXvv6D2sJ T5D98ddp5yZEhxsBY9UKYdKiQn nbypq9vehWi0PNdgOedyDhUc XYWpoH62ALM5sZ38Qd20jGOtdJ Qnz7wunUo3RbRuCQEvYKE3dGqt NNonn0NtRBMiT80zeTBrc1T8 OBQdwKaisEJhKrGkkFT1iV2qXI qacphtt5wjorzkLzl8ki70qRLz f4N2nAT2K4IzzfA5HXTmwRTp GwagbXWVlR7rwwphj6kywvsyBf YrFXWvJJa1MWy7UPMrgUxbRiIs WD30TBP4QTDhlvItZ3IyCDQw nGcsQlS8u9H5Cy9RT0PGVyxyY6 VNTUFSWTwvdGQ+RC26gc72Z1Bk GoznMwk3ECWiDTT1tLM0aP2h PYSrWXcho6V8aFK6F5WneaDgss 2gq4osBWPuWMxyI53idPIld5Z3 RIXgcPE1ZWDyqZorNwYdsA27 Oyc+THPuwAjvq7OfFykit4ljr0 cfwJd0LcecHNEdzhXmfWjmUAU4 w4CdJe8dQGMdwGE9bKL9yC3e BlTlNjA0OXmtC128BjMpvFBbGg zyJ35xZ8LfpGE+VGCrAlk4SUBc uYvtDL8aD4QyPVEndzpwkFUv qEugDF0eAASntiarULNocK6oYX BaC1g8GaEvRzV6YSpkZ1UmCQRn aowsEt63zF2lWhZuZoS8BTzi T8GovaF3LOKrnVKcLZikIIZ9K4 7cd8A8EZHdJURfJSS4pYY3iB6n bGlnbjogbGVmdDsgdmVydGlj ZJfsDAaxH902LJCtmCuoQsJdPZ luZyBEYXRlOiAgMDMvMjkvMjAy MzwvdGQ+QXQtXUK8gVlsDNLd cDAeUSkyRc3ddSvyaIgoXO8rVA XptcyeYXKrxQ7wDVAahKTdjNmw OW8qELEidigry613JzAtECV9 ETHvdJRwW2AwgQ4sJfKvXGCrHR TaV0OfnIPrPBczH585INheTpF1 SWUpymPvU9VtEDEzkOemVoF7 z1H4Ja0Pu3WyxyksK0XqbYQfHt KoGynpSFu9M5XeZkwwsRI+PC90 VCGtDK53CUa4IEF0yHgdDJhj FMIwG6GvpO0qZgGuUQXmWVCpOq c+PHRhYmxlIHdpZHRoPScxMDAl TmFwlJhxGY6jVs5hXQToXHXj nUaesTLxGrHdi8ulSMBoRMacGB 2acAmhB9ExnHV6QAFbt2h3Ot10 J09iO4HhjFB+JWNxkVK3gUU2 cA4eWnDtDmW1JCvkD670UpEneQ BlKnyti4lxq1lhiYf5MoF1VBQm puPvjXqmDAD8u7ZkIt94R59n IHdpZHRoPSIxNSUiIHZhbGlnbj 1cyY9zYx1+NIKlnFV0yIR0hS9v QgQqFdU1AJvpW943ApYkkWFa Inzyt1opc8noxKq6AuHpFFOxdr OqmGhcXHM2h7LlNh82U2WaaGub j3VhTwa8on87tCYhq2C2cES5 X4FwGMGzcuqppOMlwWyoFF2lHP PlbbcaVSKhsI3uPPVpM8s2HlLb FnO4HLiyX1GsuuQ6WQUytBCz GZFafKUIoT8efwqcj0kntacoOl HvGWObWOt4GAx6AAPfaRbzZxWy UIT5QcH4FKE0cQZkpU1ruVpy jhbwuU5dOtj+UDO3qQZllHBDBY 1lOjwvdGQ+JBOhNTA4lKnyPCtr JHTldK6sUJPdF8t5NcHwYxI6 WHjyT5ZfsbS0TIHaeCOvEHGrpL XUfF9omlwij0rpdtraHbHwRIQm IZv1FHe5JEInjCmpKqTtWJF9 InV8AQS0mTBcoY4fjKhjtechhY 9wOyc+HkewrPdqVJN0FHw9N5Mz Dtx1HOHdcCnkBF7pbDEjUNce Dp7ddCixtHvmCG3mYETjznkts2 75QzPft4fzTXHpcMJkSVsvLRB5 E48vj4J9RCLiCCIjQPZ0vFF4 mM9xzSmshhinnXWedNtnfoZhmQ ptSLeaJEhlU954RKAvqMomGvWp MUv8F2GrQqc0MIJwuTqcFU4b gFPaUXhrYc6xrJjjcBnfPT2zYS Lkteqrc940XsQlz0fkPAQtnCOm JZnbHQT5K91hy9H3CGZsMSYc MGT1rKB8qO8hiFnocadsoHNtdL cwttQyjYobWZbfGEhqL602WSTv uLkrEgNiaKp9I2EdDec4CVLa vHeuIE4jhTRxUXsnHj6lmHtztP ieMI6lZDUcrygxv056QhEpi5zz NABfpXBgNTxzUJA7Q54rv4U9 SEYuGHJiUBO8qYH2kA6uwWccdi ogbGVmdDsgdmVydGljYWwtYWxp F923RWDwnIiyWpIzmOwwwiAt YLkeQAt4I4NaAzvysBL+PC90YW MrBF67cUUhdLEzd5nsmEr8YhZi HSZtFER8kSwpAGgcj6FkCRBt V94vrTKeb2P4HYEncOrirEDeHf IeyTL2dJ2fSViqaoosm3utyfjz Jczxz8uxzt31uW72L50mNHiw WEAoWBFbNHTsZLUqcWniyb1suO 9wIi8+UJYwlUE9aXH4gH1iQMOa KoM9LBmuF021RdYirAPjLhgr b5khi0eteZi8RiZ7NBXhnzKpcN fiDEL4k4IxOa73U86uKCdcPSJk GTUgZIJbRIFquKjzya1ghU4j Ii8+FLTbiGE1uWU2gP5sJsIlQq T0FJwqA200UaUfaLPqVbauL87z F7QodUX+YFKwIrf9ZNOfrMqy ZE7yaQLyVYnuAf8lDOT0ZmTuKr NmOSnqP8WaFFVfyhauaueurQW8 ADWlSXHewT39Db4rpPtfAPVf tWPKxX7ajahho5gfebvmQvZqZR QbUUb2UFb2URHrrBdoMdQlPLW9 VcM9UIR2hWHgxJ0xcRqfobkx mF1eB6UuLSEacqtgQn72uF6xTj HzVcD9BXgfYpw+JUKSRT0TFmek KkMHKwKZCLAIWD51QI59fLAe n7E6kFJ6M3HiVJPmofrzgmmvtD F7POFmJFYupP87dDJwKChdJl0i d6M5n322UMJbGTNidW66Lr2p kDedJKTutDPVyB4wnrwvk4vhqi ecIwCpGOZlFVa3BUo6GHDcsFsi FsMvHYV0HfF1TCI3pYXdmW0y mOoyakzayN3jQff+MDIvMDQvMT s3CwiqiMS+WUHyQAA3hOfiGViv WITnaR8vCOZpL6d8RpXaSuB5 NVkyP1TnVDLqdkvlCs18gU9lNd JmWgA3SEvyA8VohmQ3PVYhyVAd TAokAOV1M98ie5O4NRBtCCIk KKS8pGT5sX0jqYapmkrvrEFjsB mmatJeuNkhKOotDPjdH857BXHy sOqbYfjaQTjwVUVmPL56CM75 hVLhz6L6uEN4O3PfQPSzvkhksb ftyBI3TQDzPRItcS23tWEcRCuu Lg1od2I0q204WUHkQVBgoE86 Tc5ntTdwYBTokYPIgF7xusoax9 zdkltyPuUnRHFzKRq9AAp3SCXn eRthJxGlIJC7VpW0TKU0hPVm yC3aeYnulyuhgD6wKxs+TWFsZT wvdGQ+MVZzMWV4sPnxWSbzTWUe hT8xNAXsF5d8XrWwYxF8YEyy M1MbGPMsdorbMu64tK1yEjDjYh B3QSgfP8UbxpK0NEMkzUIaQXcm PKT4F17is4B9FTQkTOAoFCK1 eGS7vB2kxRcjxlvltYFxnKmyce PxnGctQTkoQTkxD176DJVyzIro Nd62pIDgwFvkvcZ6I8HfPepe dHI+XY11ZLQwHA29tEPuvDMzb6 cofKg1FpFcHRSwYRA9jNjnUWml q2NuZORaT84ixKMkg2T6MWWq jWtssUTgSjXazCS0mX5qXVfxpp ozd5nliovrRvpxu7srwp46nK14 O69nWBxlLLLhBNDzICNkWKZk iVxosw1mhZ5mRg0+YNYmpGC3iN H6bO0jVlDeDlP9XMkgQ770EyJq aZChSngzh9ywi5dhwAi9PlMl ZIWgcbTsjHcxBHC2u9YjVh58Y3 9sIHdpZHRoPSIyMCUiIHZhbGln yp3cxV2nJg2+UX3fu0wopb62 iJ85jDM+LDVtGNI6bCmoNOayIB ZsfR1mYRuiAzU2EDVoGqIrrY48 zJSeQYgaMd7stRmaiNgnCU9j GCIoimqkg884ZkEzd7fgKHZdmL JxLQroWVU4M21dg7I6OGBjOAHw MTN4yEO0aR2flNezezhycSGb uKhcecFhdZbdXOumEYehB171VV PzjJfmHfXwdSKnD9rhsrAZIT8b OjwvdGQ+MUJgNLF2xUksFOqp XXUhnQ4zCTBtP9z6DlAlXxX4RQ fmS9UjcdA2NDGudIXjBFPglDFD bZ4kevuyo9niimntObJtEJCd VCh0ZPf1BYPyhOsaGiSsXEB5Li S8SOR3mGZlaE2jxExdfuomhX1t Oyc+RklOOjwvdGQ+PHRkIHN0 wPbpFRkwQSLrxO9xEEJhS1c2Et JkXeD6BXupQ6WnquT2VKJzwXRs XGPmtECTuV4fuffpo3tkqwvu OfGgZQDeTWy4DTr1TUEycJaiLs NnWEE2AiJ0JHU9cCCgbN8dfHul maicpK1wNfn+TVJOOjwvdGQ+ PDXdGGD3aAmcGGneWDOnfN8fGM AaA6p9SaDvWfO6HFmxF4IxjrL2 QQFipFGrHDAtrMMGdF9ayngb b2vypazuDcDgWSWdKEj3LXa7JT AurAgfUpXlPVV3RxC0ZOR9hFUq uM7erZmgygrwmS3gUwu+UGF5 QBY0PG89UJ41C7KoNdywlYTgbC U+PHRhYmxlIHdpZHRoPScxMDAl RtNgzIlvCG4uNq2cGJMrWOOk bGxhcHNl (more content not included)... Normal [facility] Consultation Noteon 09-21-19 Consultation Note [id number]#[id number]:127 Normal [facility] Lab Reportson 09-20-2022 Lab Reports [id number]#[id number]:127 Normal [facility] RAD - Ultrasound Reporton RAD - Ultrasound Report [id number]#[id number]:127 Normal [facility] Outside Recordson 09-16-2022 Outside Records [id number]:127 Normal [facility] Auto Diffon 09-14-2022 Basophils/100 WBC (Bld) 0.5 % Normal 0.0-2.0 [facility] Comment on above: Order Comment: Order Added by Discern Expert. Performed By: #### 2 [id number] #### [facility] Laboratory [address] [place] [address] Basophils/Leukocytes Auto (Bld) [Pure # fraction] 0.0 E9/L Normal 0.0-0.2 [facility] Comment on above: Order Comment: Order Added by Discern Expert. Performed By: #### 2 [id number] #### [facility] [address] [place] [address] Eosinophils/100 WBC (Bld) 3.2 % Normal 0.0-8.0 [facility] Comment on above: Order Comment: Order Added by Discern Expert. Performed By: #### 2 [id number] #### [facility] [address] [place] [id number] Eosinophils/Leukocytes Auto (Bld) [Pure # fraction] 0.2 E9/L Normal 0.0-0.5 [facility] Comment on above: Order Comment: Order Added by Discern Expert. Performed By: #### 2 [id number] #### [facility] [address] [place] [address] Lymphocytes/100 WBC (Bld) 17.6 % Normal 14.0-50.0 [facility] Comment on above: Order Comment: Order Added by Discern Expert. Performed By: #### 2 [id number], [id number], [id number], [id number], [id number] #### [facility] [address] [place] [address] [id number] Lymphocytes/Leukocytes Auto (Bld) [Pure # fraction] 0.9 E9/L Low 1.0-4.0 [facility] Comment on above: Order Comment: Order Added by Discern Expert. Performed By: #### 2 [id number], [id number], [id number], [id number], [id number] #### [facility] [address] [place] [address] [id number] Monocytes/100 WBC (Bld) 10.2 % Normal 4.0-14.0 [facility] Comment on above: Order Comment: Order Added by Discern Expert. Performed By: #### 2 [id number], [id number], [id number], [id number], [id number] #### [facility] [address] [place] [id number] Monocytes/Leukocytes Auto (Bld) [Pure # fraction] 0.5 E9/L Normal 0.2-1.0 [facility] Comment on above: Order Comment: Order Added by Discern Expert. Performed By: #### 2 [id number], [id number], [id number], [id number], [id number] #### [facility] [address] [place] [address] Neutrophils/100 WBC (Bld) 68.5 % Normal 36.0-75.0 [facility] Comment on above: Order Comment: Order Added by Discern Expert. Performed By: #### 2 [id number], [id number], [id number], [id number], [id number] #### [facility] [address] [place] [address] Neutrophils/Leukocytes Auto (Bld) [Pure # fraction] 3.6 E9/L Normal 2.0-7.5 [facility] Comment on above: Order Comment: Order Added by Discern Expert. Performed By: #### 2 [id number], [id number], [id number], [id number], [id number] #### [facility] [address] [place] [address] BMPon 09-14-2022 Anion gap [Moles/Vol] 10 mmol/L Normal 6-16 [facility] [facility] Comment on above: Performed By: #### 2 892909, 67740676, 0499014, 37141739, 2711749 #### [facility] [address] [place] [address] Calcium [Mass/Vol] 8.6 mg/dL Low 8.9-11.1 [facility] Comment on above: Performed By: #### 2 549739, 91952261, 0823745, 81636558, 5154185 #### [facility] [address] [place] [address] Chloride [Moles/Vol] 108 mmol/L Normal 101-[address] [facility] Comment on above: Performed By: #### 2 893785, 46302907, 5440944, 97473679, 3975210 #### [facility] [address] [place] [address] CO2 [Moles/Vol] 23 mmol/L Normal 21-31 [facility] Comment on above: Performed By: #### 2 262260, 99251398, 3064471, 25826637, 6812740 #### [facility] [address] [place] [address] Creatinine [Mass/Vol] 2.1 mg/dL High 0.5-1.3 [facility] Comment on above: Performed By: #### 2 498250, 09895701, 2806084, 26206461, 9928685 #### [facility] [address] [place] [address] Glucose [Mass/Vol] 89 mg/dL Normal 55-199 [facility] Comment on above: Result Comment: If t his glucose result represents a fasting glucose, interpretation should refer to the following reference range: 55-99 mg/dL Performed By: #### 2 864984, 39906292, 9371138, 34734651, 0608394 #### [facility] [address] [place] [address] Potassium [Moles/Vol] 4.1 mmol/L Normal 3.5-5.3 [facility] Comment on above: Performed By: #### 2 545655, 93393673, 6539485, 68868173, 7879258 #### [facility] [address] [place] [address] Sodium [Moles/Vol] 137 mmol/L Normal 135-145 [facility] Comment on above: Performed By: #### 2 384510, 52344124, 8583644, 89238241, 6279222 #### [facility] [address] [place] [address] Urea nitrogen [Mass/Vol] 26 mg/dL High 5-21 [facility] Comment on above: Performed By: #### 2 514598, 74725082, 2244526, 13413083, 7955960 #### [facility] [address] [place] [id number] Urea nitrogen/Creatinine [Mass ratio] 12 No Units Normal 10-20 [facility] Comment on above: Performed By: #### 2 924663, 53934435, 5123397, 01707744, 7840266 #### [facility] [address] [place] [id number] CBC w/ Auto Diffon 3 Erythrocyte distribution width (RBC) [Ratio] 14.0 % Normal 10.9-14.2 [facility] Comment on above: Performed By: #### 2 295956, 68209711, 8919472, 68590429, 5656976 #### [facility] [address] [place], [place] [address] Hematocrit (Bld) [Volume fraction] 31.6 % Low 37.7-49.0 [facility] Comment on above: Performed By: #### 2 514520, 64841632, 6633505, 42934422, 4717330 #### [facility] [address] [place] [id number] Hemoglobin (Bld) [Mass/Vol] 10.9 g/dL Low 13.5-17.5 [facility] Comment on above: Performed By: #### 2 689090, 60566266, 4707347, 32871292, 0909285 #### [facility] [address] [place] [address] MCH (RBC) [Entitic mass] 33.0 pg Normal 27.0-34.0 [facility] Comment on above: Performed By: #### 2 656281, 04449275, 7606803, 70785082, 2006821 #### [facility] [address] [place] [address] MCHC (RBC) [Mass/Vol] 34.5 g/dL Normal 31.4-36.0 [facility] Comment on above: Performed By: #### 2 578817, 86082494, 8607032, 01449358, 1398466 #### [facility] [address] [place] [address] MCV (RBC) [Entitic vol] 95.8 fL Normal 80.0-100.0 [facility] Comment on above: Performed By: #### 2 381044, 70405093, 2632584, 37546114, 9821543 #### [facility] [address] [place] [address] Platelet mean volume (Bld) [Entitic vol] 8.9 fL Normal 6.4-10.8 [facility] Comment on above: Performed By: #### 2 420109, 86682515, 1334803, 76974504, 5979352 #### [facility] [address] [place] [address] Platelets (Bld) [#/Vol] 151.0 E9/L Normal 150.0-500. 0 [facility] Comment on above: Performed By: #### 2 473636, 55793736, 4156034, 68298545, 0992347 #### [facility] [address] [place] [address] RBC (Bld) [#/Vol] 3.3 E12/L Low 4.3-5.9 [facility] Comment on above: Performed By: #### 2 026535, 24670335, 2322015, 40537736, 2711197 #### [facility] [address] [place] [address] WBC corrected for nucl RBC Auto (Bld) [#/Vol] 5.3 E9/L Normal 4.0-11.0 [facility] Comment on above: Performed By: #### 2 560737, 91090000, 9713219, 79351474, 3603171 #### [facility] [address] [place] [address] Consent for Treatmenton 08-26 Consent for Treatment [id number] Normal [facility] PT & PTTon 09-14-2022 aPTT Coag (PPP) [Time] 29.7 second(s) Normal 25.1-36.5 [facility] Comment on above: Result Comment: Para meter 15 days - 4 weeks 1 - 5 months 6 - 11 months 1 - 5 years 6 - 10 years 11 - 17 years PTT Mean: 35.4 (27.6-45.6) Mean: 33.5 (24.8-40.7) Mean: 32.4 (25.1-40.7) Mean: 31.6 (24.0-39.2) Mean: 31.6 (26.9-38.7) Mean: 31.0 (24.6-38.4) Pediatric Reference ranges were obtained from a study by Jaden Hutchinson et al. prepared from 1437 samples obtained at 7 different centers using the same coagulation reagent and instrumentation as [facility]. Currently there are no coagulation studies available worldwide for children to 14 days, and no normal ranges. Heparin therapeutic range (represented by Anti-Factor Xa activity of 0.2 - 0.4 U/mL) corresponds to PTT of 56.6 - 109.0 sec. Performed By: #### 2 903173, 09250744, 7396156, 81347570, 7159311 #### [facility] [address] [place] [address] INR Coag (PPP) [Relative time] 1.0 {INR} Invalid Interpretation Code [facility] Comment on above: Result Comment: INR results are specifically intended to assess patients stabilized on long-term Anticoagulation therapy suggested INR?s ?Less Intensive Anticoagulation? 2.0 ? 3.0 Conventional Range 3.0 ? 4.5 Performed By: #### 2 502214, 82295518, 7237845, 88883611, 9744566 #### [facility] [address] [place] [address] PT Coag (PPP) [Time] 11.7 second(s) Normal 9.4-12.5 [facility] Comment on above: Result Comment: 15 d ays - 4 weeks 1 - 5 months 6 -11 months 1- 5 years 6-10 years 11 -17 years Mean: 11.2 (9.5-12.6) Mean: 11.0 (9.7-12.8) Mean: 11.0 (9.8-13.0) Mean: 11.3 (9.9-13.4) Mean: 11.7 (10.0-14.6) Mean: 11.8 (10.0 - 14.1) Pediatric Reference ranges were obtained from a study by Jaden Hutchinson et al. prepared from 1437 samples obtained at 7 different centers using the same coagulation reagent and instrumentation as [facility]. Currently there are no coagulation studies available worldwide for children to 14 days, and no normal ranges. Performed By: #### 2 837010, 66481827, 3849697, 47314033, 2906923 #### [facility] [address] [place] [address] PTH INTACTon 09-14-2022 PTH, Intact 51 pg/mL Normal 15-65 [facility] Comment on above: Performed By: #### T SH, LIPID, T4, FT3, CMP #### [facility] [address] [place], [place] [address] Dr. Alicia Patel UA With Cult Reflexon 2022 Bacteria LM Ql (Urine sed) TRACE Normal Trace [facility] Comment on above: Performed By: #### 2 632772, 86169258, 4155109, 26210398, 0066026 #### [facility] [address] [place] [address] Bilirubin Ql (U) Negative Normal Negative [facility] Comment on above: Performed By: #### 2 437051, 11354661, 1612227, 18788402, 5545715 #### [facility] [address] [place] [address] Clarity (U) CLOUDY Abnormal Clear [facility] Comment on above: Performed By: #### 2 122890, 60359311, 3255020, 11145509, 6991430 #### [facility] [address] [place] [address] Color (U) YELLOW Normal Yellow [facility] Comment on above: Performed By: #### 2 302519, 84555444, 6140928, 95703657, 8003187 #### [facility] [address] [place] [address] Epithelial cells.squamous LM.HPF (Urine sed) [#/Area] 0-2 Normal 0-2 [facility] Comment on above: Performed By: #### 2 084816, 83921365, 9295171, 91157710, 6140508 #### [facility] [address] [place] [phone] Glucose Test strip (U) [Mass/Vol] Negative Normal Negative [facility] Comment on above: Performed By: #### 2 125221, 43088325, 8606258, 96724035, 3929756 #### [facility] [address] [place] [address] Hemoglobin Ql (U) 3+ Abnormal Negative [facility] Comment on above: Performed By: #### 2 866331, 30557942, 1055604, 79577072, 6829783 #### [facility] [address] [place] [address] Ketones (U) [Mass/Vol] Negative Normal Negative Fi [facility] Comment on above: Performed By: #### 2 769511, 89745419, 5608483, 17187190, 6217678 #### [facility] [address] [place] [address] [place].plasma/[place] .RBC (Bld) [Mass ratio] >30 Abnormal 0-3 [facility] Comment on above: Performed By: #### 2 653713, 78936622, 4708496, 35318935, 8432099 #### [facility] [address] [place] [address] Mucus Ql (Urine sed) TRACE Normal [facility] Comment on above: Performed By: #### 2 247424, 04163473, 4380031, 23072226, 1415640 #### [facility] [address] [place] [address] Nitrite Ql (U) Negative Normal Negative [facility] Comment on above: Performed By: #### 2 600223, 81387167, 8180743, 95542731, 6451738 #### [facility] [address] [place] [address] pH (U) 6.0 [pH] Invalid Interpretation Code 5.0-9.0 [facility] Comment on above: Performed By: #### 2 843889, 10223231, 5913508, 24729456, 9295420 #### [facility] [address] [place] [address] Protein (U) [Mass/Vol] 2+ Abnormal Negative Fi [facility] Comment on above: Performed By: #### 2 056903, 47343662, 4896738, 17981088, 9126422 #### [facility] [address] [place] [address] Specific gravity (U) [Rel density] 1.025 Invalid Interpretation Code 1.005-1.03 0 [facility] Comment on above: Performed By: #### 2 762688, 75907011, 4032839, 15282780, 1294361 #### [facility] [address] [place] [address] Type of Urine collection method Clean Catch Normal [facility] Comment on above: Performed By: #### 2 877404, 91318711, 7925065, 68017679, 3645578 #### [facility] [address] [place] [address] Urobilinogen Qn (U) 0.2 {Wil'U}/dL Normal 0.0-1.0 [facility] Comment on above: Performed By: #### 2 757883, 00321154, 0395707, 66070398, 6701012 #### [facility] [address] [place] [address] WBC Auto Ql (U) TRACE Abnormal Negative [facility] Comment on above: Performed By: #### 2 896375, 44830571, 6396938, 65932432, 8752542 #### [facility] [address] [place] [address] WBC casts LM.LPF (Urine sed) [#/Area] 0-3 Normal [facility] Comment on above: Performed By: #### 2 229646, 34749590, 9075431, 70090735, 0063799 #### [facility] [address] [place] [address] WBC LM.HPF (Urine sed) [#/Area] 0-5 Normal 0-5 [facility] Comment on above: Performed By: #### 2 897600, 17652144, 2770586, 41262820, 1839941 #### [facility] [address] [place] [address] XR Chest 2 Viewson 3 XR Chest 2 Views Exam Date/Time: 09/14/2022 14:38 EDT Reason for Exam: P.A.T. Report IMPRESSION: NO EVIDENCE OF ACTIVE CHEST DISEASE. CLINICAL HISTORY: P.A.T. Prior smoker. COMMENT: The heart is normal in size. The mediastinum is unremarkable. There is a 1.4 cm diameter rounded nodule in the left midlung zone, and the density is consistent with a granuloma. The lungs otherwise appear clear. No infiltration nor pleural effusion is evident. There is a small metallic foreign body in soft tissues of the left lower anterior chest. Ordering Provider: Timothy Pittman FINAL REPORT Dictated: 09/14/2022 3:23 pm Joel Osorio M.D. Signed (Electronic Signature): 09/14/2022 3:23 pm Signed by: Joel Osorio M.D. Transcribed by: HODA Technologist: MERI Technical Comments Radiation Dose: Ka,r in mGy = na DAP = na Normal [facility] eGFRon 09-14-2022 GFR/1.73 sq M.predicted among blacks MDRD (S/P/Bld) [Vol rate/Area] 37 mL/min/1.73 m2 Low >=59 [facility] Comment on above: Order Comment: Order added by Discern Expert. Result Comment: eGFR is race adjusted. AA=. Performed By: #### 2 022478, 44984838, 1793337, 26944583, 7590095 #### [facility] [address] [place] [address] GFR/1.73 sq M.predicted among non-blacks MDRD (S/P/Bld) [Vol rate/Area] 31 mL/min/1.73 m2 Low >=59 [facility] Comment on above: Order Comment: Order added by Discern Expert. Result Comment: Tool Liaison christa kidney disease could be indicated at eGFR's of less than 60 mL/min/1.73m2. Kidney failure is indicated at less than 15 mL/min/1.73m2. Performed By: #### 2 333020, 97825615, 9305930, 41457184, 3276668 #### [facility] [address] [place] [address] HEMOGRAM AND PLATELon 2022 Hematocrit (Bld) [Volume fraction] 32.9 % Critically low 42.0-54.0 [facility] Comment on above: Performed By: #### T SH, LIPID, T4, FT3, CMP #### [facility] [address] [place] [address] Dr. Alicia Patel Hemoglobin (Bld) [Mass/Vol] 10.9 g/dL Critically low 14.0-18.0 [facility] Comment on above: Performed By: #### T SH, LIPID, T4, FT3, CMP #### [facility] [address] [place] [address] Dr. Alicia Patel MCH (RBC) [Entitic mass] 32.6 pg Normal 25.9-34.0 [facility] Comment on above: Performed By: #### T SH, LIPID, T4, FT3, CMP #### [facility] [address] [place] [address] Dr. Alicia Patel MCHC (RBC) [Mass/Vol] 33.1 g/dL Normal 29.9-35.2 [facility] Comment on above: Performed By: #### T SH, LIPID, T4, FT3, CMP #### [facility] [address] [place] [address] Dr. Alicia Patel MCV (RBC) [Entitic vol] 98.5 fL Critically high 80.0-94.0 [facility] Comment on above: Performed By: #### T SH, LIPID, T4, FT3, CMP #### [facility] [address] [place] [address] Dr. Alicia Patel PLT 145 103/ul Critically low 150-450 [facility] Comment on above: Performed By: #### T SH, LIPID, T4, FT3, CMP #### [facility] [address] [place] [address] Dr. Alicia Patel RBC 3.34 106/ul Critically low 4.70-6.10 [facility] Comment on above: Performed By: #### T SH, LIPID, T4, FT3, CMP #### [facility] [address] [place] [address] Dr. Alicia Patel WBC 5.1 103/ul Normal 4.0-11.0 [facility] Comment on above: Performed By: #### T SH, LIPID, T4, FT3, CMP #### [facility] [address] [place] [address] Dr. Alicia Patel MAGNESIUMon 09-13-2022 Magnesium [Mass/Vol] 1.5 mg/dL Critically low 1.8-2.4 [facility] Comment on above: Performed By: #### T SH, LIPID, T4, FT3, CMP #### [facility] [address] [place] [address] Dr. Alicia Patel RENAL FUNCTION PANELon 09-13 Albumin [Mass/Vol] 3.5 g/dL Normal 3.4-5.0 [facility] Comment on above: Performed By: #### U RTPCR #### [facility] [address] [place] [address] Dr. Alicia Patel Calcium [Mass/Vol] 8.4 mg/dL Critically low 8.5-10.1 [facility] Comment on above: Performed By: #### U RTPCR #### [facility] [address] [place] [address] [address] Alicia Patel Chloride [Moles/Vol] 107 mmol/L Normal 98-107 [facility] Comment on above: Performed By: #### U RTPCR #### [facility] [address] [place] [address] [address] Alicia Patel CO2 [Moles/Vol] 25.1 mmol/L Normal 21.0-32.0 [facility] Comment on above: Performed By: #### U RTPCR #### [facility] [address] [place] [address] [address] Alicia Patel Creatinine [Mass/Vol] 1.96 mg/dL Critically high 0.70-1.30 [facility] Comment on above: Performed By: #### U RTPCR #### [facility] [address] [place] [address] Dr. Alicia Patel EGFR-AF PERUVIAN 40 mL/min/1.73m2 Critically low >=60 [facility] Comment on above: Performed By: #### U RTPCR #### [facility] [address] [place] [address] Dr. Alicia Patel EGFR-NON AF PERUVIAN 33 mL/min/1.73m2 Critically low >=60 [facility] Comment on above: Performed By: #### U RTPCR #### [facility] [address] [place] [address] Dr. Alicia Patel Glucose [Mass/Vol] 151 mg/dL Critically high 74-106 [facility] Comment on above: Performed By: #### U RTPCR #### [facility] [address] [place] [address] [address] Alicia Patle Phosphate [Mass/Vol] 3.5 mg/dL Normal 2.6-4.7 [facility] Comment on above: Performed By: #### U RTPCR #### [facility] [address] [place] [address] [address] Alicia Patel Potassium [Moles/Vol] 4.3 mmol/L Normal 3.5-5.1 [facility] Comment on above: Performed By: #### U RTPCR #### [facility] [address] [place] [address] Dr. Alicia Patel Sodium [Moles/Vol] 142 mmol/L Normal 136-145 [facility] Comment on above: Performed By: #### U RTPCR #### [facility] [address] [place] [address] Dr. Alicia Patel Urea nitrogen [Mass/Vol] 23.0 mg/dL Critically high 7.0-18.0 [facility] Comment on above: Performed By: #### U RTPCR #### [facility] [address] [place] [address] Dr. Alicia Patel UA RANDOM W/MICROSCOPICon BACTERIA TRACE Abnormal NONE SEEN [facility] Comment on above: Performed By: #### T SH, LIPID, T4, FT3, CMP #### [facility] [address] [place] [address] Dr. Alicia Patel Bilirubin Ql (U) Negative Normal NEGATIVE [facility] Comment on above: Performed By: #### T SH, LIPID, T4, FT3, CMP #### [facility] [address] [place] [address] Dr. Alicia Patel CAST NONE SEEN Normal NONE SEEN [facility] Comment on above: Performed By: #### T SH, LIPID, T4, FT3, CMP #### [facility] [address] [place] [address] Dr. Alicia Patel Clarity (U) CLEAR Normal CLEAR [facility] Comment on above: Performed By: #### T SH, LIPID, T4, FT3, CMP #### [facility] [address] [place] [address] Dr. Alicia Patel Color (U) LT. YELLOW Normal YELLOW [facility] Comment on above: Performed By: #### T SH, LIPID, T4, FT3, CMP #### [facility] [address] [place] [address] Dr. Alicia Patel Crystals LM Nom (Urine sed) NONE SEEN Normal NONE SEEN [facility] Comment on above: Performed By: #### T SH, LIPID, T4, FT3, CMP #### [facility] [address] [place] [address] [address] Alicia Patel Epithelial cells LM Ql (Urine sed) RARE Normal NONE SEEN /RARE [facility] Comment on above: Performed By: #### T SH, LIPID, T4, FT3, CMP #### [facility] [address] [place] [address] [address] Alicia Patel Glucose Ql (U) 500 mg/dl Abnormal NEGATIVE [facility] Comment on above: Performed By: #### T SH, LIPID, T4, FT3, CMP #### [facility] [address] [place] [address] [address] Alicia Patel Hemoglobin Ql (U) LARGE Abnormal NEGATIVE [facility] Comment on above: Performed By: #### T SH, LIPID, T4, FT3, CMP #### [facility] [address] [place] [address] Dr. Alicia Patel Ketones Ql (U) Negative Normal NEGATIVE [facility] Comment on above: Performed By: #### T SH, LIPID, T4, FT3, CMP #### [facility] [address] [place] [address] Dr. Alicia Patel LEUKOCYTES Negative Normal NEGATIVE [facility] Comment on above: Performed By: #### T SH, LIPID, T4, FT3, CMP #### [facility] [address] [place] [address] [address] Alicia Patel MUCOUS NONE SEEN Normal NONE SEEN [facility] Comment on above: Performed By: #### T SH, LIPID, T4, FT3, CMP #### [facility] [address] [place] [address] [address] Alicia Patel Nitrite Ql (U) Negative Normal NEGATIVE [facility] Comment on above: Performed By: #### T SH, LIPID, T4, FT3, CMP #### [facility] [address] [place] [address] [address] Alicia Patel pH (U) 6.0 [pH] Normal 5-9 [facility] Comment on above: Performed By: #### T SH, LIPID, T4, FT3, CMP #### [facility] [address] [place] [address] Dr. Alicia Patel RBC 20-50 Abnormal 0-2 [facility] Comment on above: Performed By: #### T SH, LIPID, T4, FT3, CMP #### [facility] [address] [place] [address] Dr. Alicia Patel SPEC GRAVITY 1.020 Normal 1.005-<=1. 025 [facility] Comment on above: Performed By: #### T SH, LIPID, T4, FT3, CMP #### [facility] [address] [place] [address] Dr. Alicia Patel UA PROTEIN 100 mg/dl Abnormal NEGATIVE/ TRACE [facility] Comment on above: Performed By: #### T SH, LIPID, T4, FT3, CMP #### [facility] [address] [place] [address] Dr. Alicia Patel Urobilinogen Qn (U) 0.2 {Wil'U}/dL Normal 0.2 - 1. 0 [facility] Comment on above: Performed By: #### T SH, LIPID, T4, FT3, CMP #### [facility] [address] [place] [address] Dr. Alicia Patel WBC 0-2 Abnormal NONE SEEN [facility] Comment on above: Performed By: #### T SH, LIPID, T4, FT3, CMP #### [facility] [address] [place] [address] Dr. Alicia Patel URIC ACID SERUMon 09-13-2022 Urate [Mass/Vol] 5.8 mg/dL Normal 3.5-7.2 [facility] Comment on above: Performed By: #### U RTPCR #### [facility] [address] [place] [address] Dr. Alicia Patel URINE T PROTEIN CREAT RATIOo n 09-13-2022 Protein (U) [Mass/Vol] 122.4 mg/dL Critically high <=12.0 [facility] Comment on above: Performed By: #### U RTPCR #### [facility] [address] [place] [address] Dr. Alicia Patel UR PROT CREAT RAT 1.38 Normal [facility] Comment on above: Performed By: #### U RTPCR #### [facility] [address] [address] [address] Alicia Patel URINE CREAT 88.74 mg/dL Normal 20.00-300. 00 [facility] Comment on above: Performed By: #### U RTPCR #### [facility] [address] [address] [address] Alicia Patel VITAMIN D 25 OHon 09-13-2022 VIT D 25-OH 58.0 ng/mL Normal [facility] Comment on above: Performed By: #### T SH, LIPID, T4, FT3, CMP #### [facility] [address] [place] [address] Dr. Alicia Patel VIT D RANGES SEE BELOW Normal [facility] Comment on above: Result Comment: <20 ng/mL Vit D deficient 20 - <30 ng/mL Vit D insufficient 30 - 100 ng/mL Vit D sufficient >100 ng/mL Potential Toxicity Performed By: #### T SH, LIPID, T4, FT3, CMP #### [facility] [address] [place] [address] Dr. Alicia Patel Pre-Certification Formon Pre-Certification Form [id number]:127 Normal [facility] RAD - Ultrasound Reporton RAD - Ultrasound Report [id number]:127 Normal [facility] Screenson 09-07-2022 Screens [id number]:12 7 Normal [facility] Patient Educationon 09-07-19 23 Patient Education Urology Kidney Stones Kidney stones are rock-like masses that form inside of the kidneys. Kidneys are organs that make pee (urine). A kidney stone may move into other parts of the urinary tract, including: ? The tubes that connect the kidneys to the bladder (ureters). ? The bladder. ? The tube that carries urine out of the body (urethra). Kidney stones can cause very bad pain and can block the flow of pee. The stone usually leaves your body (passes) through your pee. You may need to have a doctor take out the stone. What are the causes? Kidney stones may be caused by: ? A condition in which certain glands make too much parathyroid hormone (primary hyperparathyroidism). ? A buildup of a type of crystals in the bladder made of a chemical called uric acid. The body makes uric acid when you eat certain foods. ? Narrowing (stricture) of one or both of the ureters. ? A kidney blockage that you were born with. ? Past surgery on the kidney or the ureters, such as gastric bypass surgery. What increases the risk? You are more likely to develop this condition if: ? You have had a kidney stone in the past. ? You have a family history of kidney stones. ? You do not drink enough water. ? You eat a diet that is high in protein, salt (sodium), or sugar. ? You are overweight or very overweight (obese). What are the signs or symptoms? Symptoms of a kidney stone may include: ? Pain in the side of the belly, right below the ribs (flank pain). Pain usually spreads (radiates) to the groin. ? Needing to pee often or right away (urgently). ? Pain when going pee (urinating). ? Blood in your pee (hematuria). ? Feeling like you may vomit (nauseous). ? Vomiting. ? Fever and chills. How is this treated? Treatment depends on the size, location, and makeup of the kidney stones. The stones will often pass out of the body through peeing. You may need to: ? Drink more fluid to help pass the stone. In some cases, you may be given fluids through an IV tube put into one of your veins at the hospital. ? Take medicine for pain. ? Make changes in your diet to help keep kidney stones from coming back. Sometimes, medical procedures are needed to remove a kidney stone. This may involve: ? A procedure to break up kidney stones using a beam of light (laser) or shock waves. ? Surgery to remove the kidney stones. Follow these instructions at home: Medicines ? Take unfw-avd-dfodkil and prescription medicines only as told by your doctor. ? Ask your doctor if the medicine prescribed to you requires you to avoid driving or using heavy machinery. Eating and drinking ? Drink enough fluid to keep your pee pale yellow. You may be told to drink at least 8?10 glasses of water each day. This will help you pass the stone. ? If told by your doctor, change your diet. This may include: ? Limiting how much salt you eat. ? Eating more fruits and vegetables. ? Limiting how much meat, poultry, fish, and eggs you eat. ? Follow instructions from your doctor about eating or drinking restrictions. General instructions ? Collect pee samples as told by your doctor. You may need to collect a pee sample: ? 24 hours after a stone comes out. ? 8?12 weeks after a stone comes out, and every 6?12 months after that. ? Strain your pee every time you pee (urinate), for as long as told. Use the strainer that your doctor recommends. ? Do not throw out the stone. Keep it so that it can be tested by your doctor. ? Keep all follow-up visits as told by your doctor. This is important. You may need follow-up tests. How is this prevented? To prevent another kidney stone: ? Drink enough fluid to keep your pee pale yellow. This is the best way to prevent kidney stones. ? Eat healthy foods. ? Avoid certain foods as told by your doctor. You may be told to eat less protein. ? Stay at a healthy weight. Where to find more information ? National Kidney Foundation (NKF): www.kidney.org ? [employer] (UCF): www.urologyhealth.org Contact a doctor if: ? You have pain that gets worse or does not get better with medicine. Get help right away if: ? You have a fever or chills. ? You get very bad pain. ? You get new pain in your belly (abdomen). ? You pass out (faint). ? You cannot pee. Summary ? Kidney stones are rock-like masses that form inside of the kidneys. ? Kidney stones can cause very bad pain and can block the flow of pee. ? The stones will often pass out of the body through peeing. ? Drink enough fluid to keep your pee pale yellow. This information is not intended to replace advice given to you by your health care provider. Make sure you discuss any questions you have with your health care provider. Document Released: 11/29/2008 Document Revised: 10/30/2019 Document Reviewed: 10/30/2019 [employer] Patient Education ? 2019 [employer]. Isamar Carrillo [facility] Urology Office/Clinic Noteon 09-06-2022 Urology Office/Clinic Note Chief Complaint Pt is here for [facility] [place] [facility] ER f/u HPI Staff Victorino is a 82 y.o. male here for hospital follow up. Pt was seen at [facility]. Previous Dx: acute kidney failure, BPH w/ urinary obstruction, elevated PSA, ED, flank pain, hydronephrosis, kidney stone, prostate cancer, ureteral stone, urinary retention. S/P cysto/stent removal done on 04/15/20, cysto/bilateral dilation ureteral/stent done on 03/11/20, TURP done on 08/01/19, biopsy of prostate done on 07/04/19, cysto/RG/laser done on 06/27/19. Pt presented to [facility] on 08/11/22 for shortness of breath. Pt presented to [facility] later that evening on 08/11/22 for abdominal complaints. Pt was found to be in renal failure, CRE was 17 & BUN over 150 done on 08/11/22. Urology consult was requested due to a solitary right kidney & right proximal ureteral obstruction. S/P cystoscopy/RG/stent done on 08/13/22. VALENTINA done on 09/01/22 showed moderate right hydronephrosis w/ ureteral stent, right nephrolithiasis and suspected proximal ureterolithiasis. Dysuria: denies Incomplete bladder emptying: denies Hematuria: denies Frequency: yes Urgency: yes Nocturia: every 2 hours, w/ urine output of 200cc Stream: steady stream Leaking: mild Post void dripping: denies Wearing pads/ Depends: denies Urge incontinence: denies Stress incontinence: denies Incontinence without Sensory Awareness: denies Abdominal pain: denies Flank pain: Rt side tenderness Sexual complaints: _ History of Present Illness I have reviewed and verified the staff HPI to be accurate for this encounter. Review of Systems PHQ Score Initial Depression Screen Score: 0 ROS - Provider Constitutional: denies weight loss, denies hot flashes. Eyes: denies eye problems. Gastrointestinal: denies nausea, denies vomiting. Cardiovascular: denies chest pain or angina. Integumentary: no dryness Musculoskeletal: denies musculoskeletal symptoms. ENMT: denies otolaryngeal symptoms. Respiratory: no shortness of breath. Heme/Lymph: denies easy bleeding tendency, denies easy bruising tendency. Psychiatric: no confusion, no anxiety. Genitourinary: denies dysuria, denies hematuria, denies discharge, denies urinary frequency, denies urinary hesitancy, denies nocturia, denies incontinence, denies genital sores, denies decreased libido, and denies erectile dysfunction. Physical Exam Vitals & Measurements HR: 68(Peripheral) BP: 132/70 HT: 69 in HT: 174 cm WT: 111 kg WT: 244.2 lb BMI: 36.66 General Appearance: alert, no distress, well nourished, well developed male. Genitourinary: normal scrotum, normal testes, normal urethra, normal epididymis, normal vas deferens/spermatic cord. Flank Pain: none. Bladder: nonpalpable. Assessment/Plan 1. Kidney stone (N20.0: Calculus of kidney) VALENTINA done 09/01/2022 showed moderate right hydro with suspected ureteral stent and right nephrolithiasis and suspected proximal ureterolithiasis. S/P cystoscopy/RG/stent done on 08/13/22 Pt has a solitary right kidney. Discussed scheduling pt for an ESWL but if he is not able to visualize the stone we will need to do a Cysto/RG/Laser/basket/Sten t. Will schedule ESWL. The procedure risks, benefits, details and treatment alternatives have been discussed with the patient. These include blood in the urine, infection, bleeding around the kidney, kidney bruising, inability to break up the stone, need for blood transfusion, blockage from stone fragments, and need for additional procedures, among others. Full informed consent has been obtained. Will order General anesthesia. Heart and lung problem risk under anesthesia discussed. Repeat labs will be needed, even though latest renal function tests much improved at last check. 2. BPH with urinary obstruction (N40.1: Benign prostatic hyperplasia with lower urinary tract symptoms) S/p TURP 07/2019. Currently not on any BPH medications. 3. Erectile dysfunction (N52.9: Male erectile dysfunction, unspecified) Pt is currently taking Sildenafil 100mg PRN. Pt to continue medication, and will call for any refills Overall this patient has a solitary right kidney and had complete obstruction with significant renal failure, metabolic acidosis and hyperkalemia. He received hemodialysis and subsequently had placement of a right-sided double-J stent. Current renal ultrasound demonstrates only fragments of stone both at the right ureteropelvic junction and within the kidney itself. No distinct 1 cm stone which had been detected on the prior CT scan performed at the [facility]. The options include both nephroscopic/ureteroscopic approach with laser lithotripsy and stone basket extraction versus an external lithotripsy. After full discussion with the patient he agrees to schedule both procedures and see if he can simply see the stone on fluoroscopic imaging. If not we will most likely proceed with retrograde guided lithotripsy or endoscopic laser lithotripsy. He understands all this and agrees to proceed. He knows he needs to be off asp (more content not included)... Normal [facility] Comment on above: Result Comment: Elec tronically Signed By: Ni OLIVARES MD\.br\Date and Time Signed: 09/06/22 10:36 EDT\.br\Electronically Co-Signed By: Samantha Dyson MA\.br\Date and Time Co-Signed: 09/06/22 10:27 EDT US KIDNEYSon 09-01-2022 US KIDNEYS EXAMINATION: US TIFFANI EYRosa HISTORY: Kidney stone COMPARISON: No relevant comparison available. TECHNIQUE: Ultrasound examination was performed of the bladder. FINDINGS: Right Kidney: Normal in size and contour. The cortex measures 1.7 cm thick. 2 cm area of anechoic echogenicity upper pole, cortical cyst. Multiple echogenic foci, nephrolithiasis. Possible 4 mm calcification in the proximal ureter. Suspected ureteral stent with moderate hydronephrosis Height: 9.4 cm Length: 14.6 cm Width: 6.9 cm Left Kidney: Small in size. Cortical thinning, the cortex measures 0.7 cm. No solid mass, hydronephrosis or obstructing nephrolithiasis Height: 4.4 cm Length: 10.0 cm Width: 4.8 cm Urinary bladder volume 142 mL. Linear hyperechogenicity suspected to be a ureteral stent. Ureteral jets not visualized IMPRESSION: Moderate right hydronephrosis with suspected ureteral stent Right nephrolithiasis and suspected proximal ureterolithiasis Electronically authenticated by: TYLER MONSIVAIS Date: 2022-09-01 09:33 Normal [facility] CT chest wo con high reson 0 08-31-2022 CT chest wo con high res [facility] [place] [address] [place] [id number] Scan Report Signed Patient: Victorino Smyth MR#: [id number] : 1940 Acct:[id number] Age/Sex: 82 / M ADM Date: 08/31/22 Loc: CT Room: Type: [facility] Attending Dr: Hiral Interiano MD Copies to: Hiral Interiano MD Ordering Provider: Hiral Interiano MD Date of Service: 08/31/22 CT/CT chest wo con high res: follow up left lower lung nodule CT CHEST WITHOUT IV CONTRAST: High-resolution protocol. CLINICAL HISTORY: Lung nodule seen on outside imaging. COMPARISON: CT abdomen and pelvis from [facility] 08/11/2022 TECHNIQUE: Spiral images were obtained through the chest without IV contrast. High-resolution protocol was utilized with both supine and prone imaging. This CT exam was performed using one or more following dose reduction techniques: Automated exposure control, adjustment of the mA and/or kV according to patient size, or use of iterative reconstruction technique. FINDINGS: Mediastinum:Thoracic aorta demonstrates mild calcification without aneurysm. Pulmonary trunk appears nondilated. No pleural effusion. No lymphadenopathy. The esophagus is grossly unremarkable. Lungs:Mild reticular changes. No consolidation, pneumothorax or pleural effusion. Minimal honeycombing. No bronchiectasis. No significant bronchial wall thickening. No suspicious pulmonary nodule. Calcified granulomas involving the left lower lobe, one of which appears to represent the prior abnormality. Abd:Partially visualized right-sided hydronephrosis. There appears to be a stone involving the proximal right ureter seen on the prior CT study. Soft tissues/Bones: Visualized soft tissue surrounding the chest wall demonstrate no acute findings. Osseous structures demonstrate degenerative change. CT/CT chest wo con high res IMPRESSION: No suspicious pulmonary nodule seen on today's study. The abnormality seen on the prior CT abdomen and pelvis study appears to represent a granuloma within the left lower lobe. Mild reticular changes with minimal honeycombing. Developing UIP/IPF cannot be excluded. CT follow- up is recommended to assess for progression. Partially visualized right-sided hydronephrosis. No obstructing stone is seen on the prior CT abdomen and pelvis study. Impression dictated by: Ifeanyi Perez Jr., DManoharOManohar08/31/2022 3:25 PM Dictation Location: [place] [address] Transcribed By: [facility] 08/31/22 1525 Dictated By: Ifeanyi Perez Jr, DO 08/31/22 1520 Signed By: 08/31/22 1525 Normal [facility] PSA, FREE AND TOTAL RATIOon 08-25-2022 % Free PSA 13.7 % Normal [facility] Comment on above: Result Comment: The table below lists the probability of prostate cancer for men with non-suspicious DEBORAH results and total PSA between 4 and 10 ng/mL, by patient age (Adelaide et al, FEDERICO 1998, [id number]). % Free PSA 50-64 yr 65-75 yr 0.00-10.00% 56% 55% 10.01-15.00% 24% 35% 15.01-20.00% 17% 23% 20.01-25.00% 10% 20% >25.00% 5% 9% Please note: Adelaide et al did not make specific recommendations regarding the use of percent free PSA for any other population of men. Performed By: #### T SH, LIPID, T4, FT3, CMP #### [facility] [address] [place] [address] Dr. Alicia Patel Prostate specific Ag [Mass/Vol] 6.2 ng/mL Critically high 0.0-4.0 [facility] Comment on above: Result Comment: Dwight JUAREZ methodology. . According to the [place] [employer], Serum PSA should decrease and remain at undetectable levels after radical prostatectomy. The AUA defines biochemical recurrence as an initial PSA value 0.2 ng/mL or greater followed by a subsequent confirmatory PSA value 0.2 ng/mL or greater. Values obtained with different assay methods or kits cannot be used interchangeably. Results cannot be interpreted as absolute evidence of the presence or absence of malignant disease. Performed By: #### T SH, LIPID, T4, FT3, CMP #### [facility] [address] [address] [address] Alicia Patel PSA, Free 0.85 ng/mL Normal N/A [facility] Comment on above: Result Comment: Dwight linares ECLIA methodology. Performed By: #### T SH, LIPID, T4, FT3, CMP #### [facility] [address] [place] [address] Dr. Alicia DAVALOS BLD IMMUNO SCREENon 07-29 OCCULT BLOOD Negative Normal NEGATIVE [facility] Comment on above: Performed By: #### T SH, LIPID, T4, FT3, CMP #### [facility] [address] [place] [address] Dr. Alicia Patel CBC AUTO DIFFon 08-21-2022 BASO # 0.0 103/ul Normal 0.0-0.1 [facility] Comment on above: Performed By: #### U RTPCR #### [facility] [address] [place] [address] Dr. Alicia Patel Basophils/100 WBC (Bld) 0.3 % Normal 0.2-2.0 [facility] Comment on above: Performed By: #### U RTPCR #### [facility] [address] [place] [address] Dr. Alicia Patel EO # 0.2 103/ul Normal 0.0-0.7 [facility] Comment on above: Performed By: #### U RTPCR #### [facility] [address] [place] [address] Dr. Alicia Patel Eosinophils/100 WBC (Bld) 3.2 % Normal 0.9-7.0 [facility] Comment on above: Performed By: #### U RTPCR #### [facility] [address] [place] [address] Dr. Alicia Patel Erythrocyte distribution width (RBC) [Ratio] 12.9 % Normal 11.0-15.0 [facility] Comment on above: Performed By: #### U RTPCR #### [facility] [address] [place] [address] Dr. Alicia Patel Hematocrit (Bld) [Volume fraction] 35.4 % Critically low 42.0-54.0 [facility] Comment on above: Performed By: #### U RTPCR #### [facility] [address] [place] [address] Dr. Alicia Patel Hemoglobin (Bld) [Mass/Vol] 11.7 g/dL Critically low 14.0-18.0 [facility] Comment on above: Performed By: #### U RTPCR #### [facility] [address] [place] [address] Dr. Alicia Patel IG # 0.08 10e3/ul Critically high 0.00-0.03 [facility] Comment on above: Performed By: #### U RTPCR #### [facility] [address] [place] [address] Dr. Alicia Patel IG % 1.2 % Critically high 0.0-0.5 [facility] Comment on above: Performed By: #### U RTPCR #### [facility] [address] [place] [address] Dr. Alicia Patel LYMPH # 1.1 103/ul Critically low 1.2-3.8 [facility] Comment on above: Performed By: #### U RTPCR #### [facility] [address] [place] [address] Dr. Alicia Patel Lymphocytes/100 WBC (Bld) 16.6 % Critically low 20.5-60.0 [facility] Comment on above: Performed By: #### U RTPCR #### [facility] [address] [place] [address] Dr. Alicia Patel MANUAL DIFF REQ NO Normal [facility] Comment on above: Performed By: #### U RTPCR #### [facility] [address] [place] [address] Dr. Alicia Patel MCH (RBC) [Entitic mass] 32.4 pg Normal 25.9-34.0 [facility] Comment on above: Performed By: #### U RTPCR #### [facility] [address] [place] [address] Dr. Alicia Patel MCHC (RBC) [Mass/Vol] 33.1 g/dL Normal 29.9-35.2 [facility] Comment on above: Performed By: #### U RTPCR #### [facility] [address] [address] [address] Alicia Patel MCV (RBC) [Entitic vol] 98.1 fL Critically high 80.0-94.0 [facility] Comment on above: Performed By: #### U RTPCR #### [facility] [address] [place] [address] Dr. Alicia Patel MONO # 0.6 103/ul Normal 0.3-0.8 [facility] Comment on above: Performed By: #### U RTPCR #### [facility] [address] [place] [address] Dr. Alicia Patel Monocytes/100 WBC (Bld) 8.8 % Normal 1.7-12.0 [facility] Comment on above: Performed By: #### U RTPCR #### [facility] [address] [place] [address] Dr. Alicia Patel NEUT # 4.8 103/ul Normal 1.4-6.5 [facility] Comment on above: Performed By: #### U RTPCR #### [facility] [address] [place] [address] Dr. Alicia Patel Neutrophils/100 WBC (Bld) 69.9 % Normal 43.0-75.0 [facility] Comment on above: Performed By: #### U RTPCR #### [facility] [address] [place] [address] Dr. Alicia Patel Platelet mean volume (Bld) [Entitic vol] 10.4 fL Normal 9.5-13.5 [facility] Comment on above: Performed By: #### U RTPCR #### [facility] [address] [place] [address] Dr. Alicia Patel PLT 200 103/ul Normal 150-450 [facility] Comment on above: Performed By: #### U RTPCR #### [facility] [address] [place] [address] Dr. Alicia Patel RBC 3.61 106/ul Critically low 4.70-6.10 [facility] Comment on above: Performed By: #### U RTPCR #### [facility] [address] [address] [address] Alicia Patel WBC 6.8 103/ul Normal 4.0-11.0 [facility] Comment on above: Performed By: #### U RTPCR #### [facility] [address] [place] [address] Dr. Alicia Patel FREE T3on 08-21-2022 FREE T3 1.91 pg/mlL Critically low 2.18-3.98 [facility] Comment on above: Performed By: #### T SH, LIPID, T4, FT3, CMP #### [facility] [address] [place] [address] Dr. Alicia Patel GLYCOHEMOGLOBIN A1Con 2022 ADA RECOMMENDATION SEE BELOW Normal [facility] Comment on above: Result Comment: ADA RECOMMENDED LIMIT 4.0 - 6.0 ADA THERAPEUTIC TARGET < 7.0 ACTION SUGGESTED > 7.0 Performed By: #### T SH, LIPID, T4, FT3, CMP #### [facility] [address] [place] [address] Dr. Alicia Patel Glucose [Mass/Vol] 194 mg/dL Normal [facility] Comment on above: Performed By: #### T SH, LIPID, T4, FT3, CMP #### [facility] [address] [place] [address] Dr. Alicia Patel HbA1c (Bld) [Mass fraction] 8.4 % Critically high 4.5-6.2 [facility] Comment on above: Performed By: #### T SH, LIPID, T4, FT3, CMP #### [facility] [address] [place] [address] Dr. Alicia Patel LIPID PROFILEon 08-21-2022 CHOL-HDL RATIO NORM SEE BELOW Normal [facility] Comment on above: Result Comment: 3.3 - 4.4 LOW RISK 4.4 - 7.1 AVERAGE RISK 7.1 - 11.0 MODERATE RISK >11.0 HIGH RISK Performed By: #### T SH, LIPID, T4, FT3, CMP #### [facility] [address] [place] [address] Dr. Alicia Patel Cholesterol [Mass/Vol] 120 mg/dL Normal <=200 Th e [facility] Comment on above: Performed By: #### T SH, LIPID, T4, FT3, CMP #### [facility] [address] [address] [address] Alicia Patel Cholesterol in HDL [Mass/Vol] 30 mg/dL Critically low 40-60 [facility] Comment on above: Performed By: #### T SH, LIPID, T4, FT3, CMP #### [facility] [address] [address] [address] Alicia Patel Cholesterol in LDL [Mass/Vol] 59.8 mg/dL Normal [facility] Comment on above: Performed By: #### T SH, LIPID, T4, FT3, CMP #### [facility] [address] [place] [address] Dr. Alicia Patel Cholesterol.total/Chol esterol in HDL [Mass ratio] 4.0 {ratio} Normal [facility] Comment on above: Performed By: #### T SH, LIPID, T4, FT3, CMP #### [facility] [address] [place] [address] Dr. Alicia Patel HDL NORMAL > or = 60 mg/dl - LO W CARDIOVASCULAR RISK <40 mg/dl - HIGH CARDIOVASCULAR RISK Normal [facility] Comment on above: Performed By: #### T SH, LIPID, T4, FT3, CMP #### [facility] [address] [place] [address] Dr. Alicia Patel LDL CALC NORMAL SEE BELOW Normal [facility] Comment on above: Result Comment: <100 mg/dl OPTIMAL 100 - 129 mg/dl NEAR OR ABOVE OPTIMAL 130 - 159 mg/dl BORDERLINE HIGH 160 - 189 mg/dl HIGH >190 mg/dl VERY HIGH Performed By: #### T SH, LIPID, T4, FT3, CMP #### [facility] [address] [place] [address] Dr. Alicia Patel Triglyceride [Mass/Vol] 151 mg/dL Critically high <=150 [facility] Comment on above: Performed By: #### T SH, LIPID, T4, FT3, CMP #### [facility] [address] [address] [address] Alicia Patel VLDL CALC 30.2 mg/dL Normal [facility] Comment on above: Performed By: #### T SH, LIPID, T4, FT3, CMP #### [facility] [address] [place] [address] Dr. Alicia Patel PROF 14(COMP METB)on 023 Albumin [Mass/Vol] 3.3 g/dL Critically low 3.4-5.0 [facility] Comment on above: Performed By: #### T SH, LIPID, T4, FT3, CMP #### [facility] [address] [place] [address] Dr. Alicia Patel Albumin/Globulin [Mass ratio] 0.9 {ratio} Normal [facility] Comment on above: Performed By: #### T SH, LIPID, T4, FT3, CMP #### [facility] [address] [place] [address] Dr. Alicia Patel ALP [Catalytic activity/Vol] 79 U/L Normal 46-116 [facility] Comment on above: Performed By: #### T SH, LIPID, T4, FT3, CMP #### [facility] [address] [address] [address] Alicia Patel ALT [Catalytic activity/Vol] 61 U/L Normal 16-63 [facility] Comment on above: Performed By: #### T SH, LIPID, T4, FT3, CMP #### [facility] [address] [address] [address] Alicia Patel Anion gap [Moles/Vol] 12.6 mmol/L Normal [facility] Comment on above: Performed By: #### T SH, LIPID, T4, FT3, CMP #### [facility] [address] [place] [address] Dr. Alicia Patel AST [Catalytic activity/Vol] 39 U/L Critically high 15-37 [facility] Comment on above: Performed By: #### T SH, LIPID, T4, FT3, CMP #### [facility] [address] [place] [address] Dr. Alicia Patel Bilirubin [Mass/Vol] 0.7 mg/dL Normal 0.2-1.0 [facility] Comment on above: Performed By: #### T SH, LIPID, T4, FT3, CMP #### [facility] [address] [place] [address] Dr. Alicia Patel Calcium [Mass/Vol] 8.9 mg/dL Normal 8.5-10.1 [facility] Comment on above: Performed By: #### T SH, LIPID, T4, FT3, CMP #### [facility] [address] [place] [address] Dr. Alicia Patel Chloride [Moles/Vol] 111 mmol/L Critically high 98-107 [facility] Comment on above: Performed By: #### T SH, LIPID, T4, FT3, CMP #### [facility] [address] [place] [address] Dr. Alicia Patel CO2 [Moles/Vol] 24.0 mmol/L Normal 21.0-32.0 [facility] Comment on above: Performed By: #### T SH, LIPID, T4, FT3, CMP #### [facility] [address] [place] [address] Dr. Alicia Patel Creatinine [Mass/Vol] 1.80 mg/dL Critically high 0.70-1.30 [facility] Comment on above: Performed By: #### T SH, LIPID, T4, FT3, CMP #### [facility] [address] [place] [address] Dr. Alicia Patel EGFR-AF PERUVIAN 44 mL/min/1.73m2 Critically low >=60 [facility] Comment on above: Performed By: #### T SH, LIPID, T4, FT3, CMP #### [facility] [address] [place] [address] Dr. Alicia Patel EGFR-NON AF PERUVIAN 36 mL/min/1.73m2 Critically low >=60 [facility] Comment on above: Performed By: #### T SH, LIPID, T4, FT3, CMP #### [facility] [address] [place] [address] Dr. Alicia Patel Globulin (S) [Mass/Vol] 3.5 g/dL Normal [facility] Comment on above: Performed By: #### T SH, LIPID, T4, FT3, CMP #### [facility] [address] [address] [address] Alicia Patel Glucose [Mass/Vol] 118 mg/dL Critically high 74-106 [facility] Comment on above: Performed By: #### T SH, LIPID, T4, FT3, CMP #### [facility] [address] [address] [address] Alicia Patel Potassium [Moles/Vol] 4.6 mmol/L Normal 3.5-5.1 [facility] Comment on above: Performed By: #### T SH, LIPID, T4, FT3, CMP #### [facility] [address] [place] [address] Dr. Alicia Patel Protein [Mass/Vol] 6.8 g/dL Normal 6.4-8.2 [facility] Comment on above: Performed By: #### T SH, LIPID, T4, FT3, CMP #### [facility] [address] [place] [address] Dr. Alicia Patel Sodium [Moles/Vol] 143 mmol/L Normal 136-145 [facility] Comment on above: Performed By: #### T SH, LIPID, T4, FT3, CMP #### [facility] [address] [place] [address] Dr. Alicia Patel Urea nitrogen [Mass/Vol] 31.0 mg/dL Critically high 7.0-18.0 [facility] Comment on above: Performed By: #### T SH, LIPID, T4, FT3, CMP #### [facility] [address] [place] [address] Dr. Alicia Patel Urea nitrogen/Creatinine [Mass ratio] 17.2 mg/mg Normal [facility] Comment on above: Performed By: #### T SH, LIPID, T4, FT3, CMP #### [facility] [address] [place] [address] Dr. Alicia Patel T4on 08-21-2022 T4 [Mass/Vol] 7.70 ug/dL Normal 4.50-12.10 [facility] Comment on above: Performed By: #### T SH, LIPID, T4, FT3, CMP #### [facility] [address] [place] [address] Dr. Alicia Patel TSHon 08-21-2022 TSH 1.138 uIU/mL Normal 0.358-3.74 0 [facility] Comment on above: Performed By: #### T SH, LIPID, T4, FT3, CMP #### [facility] [address] [place] [address] Dr. Alicia Patel RENAL FUNCTION PANELon 08-18 Albumin [Mass/Vol] 3.3 g/dL Critically low 3.4-5.0 [facility] Comment on above: Performed By: #### U RTPCR #### [facility] [address] [place] [address] Dr. Alicia Patel Calcium [Mass/Vol] 8.3 mg/dL Critically low 8.5-10.1 [facility] Comment on above: Performed By: #### U RTPCR #### [facility] [address] [place] [address] Dr. Alicia Patel Chloride [Moles/Vol] 109 mmol/L Critically high 98-107 [facility] Comment on above: Performed By: #### U RTPCR #### [facility] [address] [place] [address] Dr. Alicia Patel CO2 [Moles/Vol] 22.1 mmol/L Normal 21.0-32.0 [facility] Comment on above: Performed By: #### U RTPCR #### [facility] [address] [place] [address] Dr. Alicia Patel Creatinine [Mass/Vol] 2.14 mg/dL Critically high 0.70-1.30 [facility] Comment on above: Performed By: #### U RTPCR #### [facility] [address] [place] [address] Dr. Alicia Patel EGFR-AF PERUVIAN 36 mL/min/1.73m2 Critically low >=60 [facility] Comment on above: Performed By: #### U RTPCR #### [facility] [address] [address] [address] Alicia Patel EGFR-NON AF PERUVIAN 30 mL/min/1.73m2 Critically low >=60 [facility] Comment on above: Performed By: #### U RTPCR #### [facility] [address] [address] [address] Alicia Patel Glucose [Mass/Vol] 102 mg/dL Normal 74-106 [facility] Comment on above: Performed By: #### U RTPCR #### [facility] [address] [address] [address] Alicia Patel Phosphate [Mass/Vol] 3.1 mg/dL Normal 2.6-4.7 [facility] Comment on above: Performed By: #### U RTPCR #### [facility] [address] [address] [address] Alicia Patel Potassium [Moles/Vol] 3.9 mmol/L Normal 3.5-5.1 [facility] Comment on above: Performed By: #### U RTPCR #### [facility] [address] [address] [address] Alicia Patel Sodium [Moles/Vol] 141 mmol/L Normal 136-145 [facility] Comment on above: Performed By: #### U RTPCR #### [facility] [address] [address] [address] Alicia Patel Urea nitrogen [Mass/Vol] 41.0 mg/dL Critically high 7.0-18.0 [facility] Comment on above: Performed By: #### U RTPCR #### [facility] [address] [address] [address] Alicia Patel ED Note-Physicianon 08-17-19 ED Note-Physician [id number]:127 Normal [facility] RAD - CT Reporton 08-17-[address]22 RAD - CT Report [id number]:127 [facility] RAD - MISCon 08-17-2022 RAD [facility] [id number]#[id number]:127 [facility] MIS [id number]#1.00CD:127 [facility] Insurance Correspondence Off iceon 08-16-2022 Insurance Correspondence Office [id number]:127 [facility] Basic Metabolic Panelon 07-28 Creatinine Clr Calc Pharmacy [facility] Comment on above: Result Comment: PERF ORMED BY: [place] [address] PATHOLOGIST LEATHER BELT LOOP CUTTER DIANDRA LACY M.D. Performed By: #### P T #### [address] Estimated GFR ( Yana 21 [facility] Comment on above: Result Comment: GFR estimated reference range: According to KDOQI guidelines, <60 ml/min/1.73m2 is sufficient to diagnose a patient with chronic kidney disease. Performed By: #### P T #### [address] Estimated GFR (Non- Am 17 [facility] Comment on above: Performed By: #### P T #### [address] Estimated glomerular filtrat ion rate (GFR) non- AmericanOrdered By: Hiral Interiano on 08-15-2022 GFR/1.73 sq M.predicted among non-blacks MDRD (S/P/Bld) [Vol rate/Area] 17 mL/Min [facility] Glucose Glucometer (BldC) [M ass/Vol]Ordered By: Hiral Interiano on 08-15-2022 Glucose [Mass/Vol] 135 mg/dL [facility] Comment on above: Random Glucose Refer ence Range is dependent on time and content of last meal. Glucose of more than 200 mg/dL in a nonstressed, ambulatory subject supports the diagnosis of Diabetes Mellitus. Glucose Poct Glucometerson 0 08-15-2022 Glucose [Mass/Vol] 135 mg/dL Normal [facility] Comment on above: Result Comment: [place] om Glucose Reference Range is dependent on time and content of last meal. Glucose of more than 200 mg/dL in a nonstressed, ambulatory subject supports the diagnosis of Diabetes Mellitus. PERFORMED BY: [place] [address] PATHOLOGIST LEATHER BELT LOOP CUTTER DIANDRA LACY M.D. Performed By: #### G LULS ####Point of Care testing, Glucose [Mass/Vol] 163 mg/dL Normal [facility] Comment on above: Result Comment: [facility] [place] Glucose Reference Range is dependent on time and content of last meal. Glucose of more than 200 mg/dL in a nonstressed, ambulatory subject supports the diagnosis of Diabetes Mellitus. PERFORMED BY: [place] [address] PATHOLOGIST LEATHER BELT LOOP CUTTER DIANDRA LACY M.D. Performed By: #### P T #### [facility] [address] [place] [address] No Panel InformationOrdered By: Hiral Interiano on 08-15-2022 Estimated GFR () 21 mL/Min [facility] Comment on above: GFR estimated refere nce range: According to KDOQI guidelines, <60 ml/min/1.73m2 is sufficient to diagnose a patient with chronic kidney disease. Pharmacy Creatinine Clearance (Chem 21.94 [facility] Serum or plasma anion gap de terminationOrdered By: Hiral Interiano on 08-15-2022 Anion gap [Moles/Vol] 10.3 mmol/L Normal 6.0-15.0 [facility] Comment on above: Performed By: #### P T #### [facility] [address] [place] [address] Serum or plasma calcium alpesh urement (mass/volume)Ordered By: Hiral Interiano on 08-15-2022 Calcium [Mass/Vol] 7.7 mg/dL Low 8.2-10.2 [facility] Comment on above: Performed By: #### P T #### [facility] [address] Serum or plasma chloride adina surement (moles/volume)Ordered By: Hiral Interiano on 08-15-2022 Chloride [Moles/Vol] 112 mmol/L Normal 95-114 [facility] Comment on above: Performed By: #### P T #### [address] Serum or plasma creatinine m easurement with calculation of estimated glomerular filtrOrdered By: Hiral Interiano on 08-15-2022 Creatinine [Mass/Vol] 3.46 mg/dL Significan t change up 0.64-1.27 [facility] Comment on above: Delta: 6.60 on 08/14-432 Performed By: #### P T #### [address] Serum or plasma glucose alpesh urement (mass/volume)Ordered By: Hiral Interiano on 08-15-2022 Glucose [Mass/Vol] 140 mg/dL High 70-100 [facility] Comment on above: ADA recommended refe rence rangeRandom Glucose Reference Range is dependent on time and content of last meal. Glucose of more than 200 mg/dL in a nonstressed, ambulatory subject supports the diagnosis of Diabetes Mellitus. Result Comment: [place] om Glucose Reference Range is dependent on time and content of last meal. Glucose of more than 200 mg/dL in a nonstressed, ambulatory subject supports the diagnosis of Diabetes Mellitus. ADA recommended reference range Performed By: #### P T #### [facility] [address] Serum or plasma potassium me asurement (moles/volume)Ordered By: Hiral Interiano on 08-15-2022 Potassium [Moles/Vol] 3.8 mmol/L Normal 3.5-5.1 [facility] Comment on above: Performed By: #### P T #### [address] Serum or plasma sodium measu rement (moles/volume)Ordered By: Hiral Interiano on 08-15-2022 Sodium [Moles/Vol] 140 mmol/L Normal 136-146 [facility] Comment on above: Performed By: #### P T #### [address] Serum or plasma total carbon dioxide measurement (moles/volume)Ordered By: Hiral Interiano on 08-15-2022 CO2 [Moles/Vol] 21.5 mmol/L Low 22.0-30.0 [facility] Comment on above: Performed By: #### P T #### [address] Serum or plasma urea nitroge n measurement (mass/volume)Ordered By: Hiral Interiano on 08-15-2022 Urea nitrogen [Mass/Vol] 45 mg/dL High 9-23 [facility] Comment on above: Performed By: #### P T #### [address] Aerobic Cultureon 08-14-2022 Aerobic Culture ORGANISM: Rosanna al bicans (O:CANALB) Quantity of Growth Light Growth Gram Stain Result 3+ Epithelial Cells 2+ White Blood Cells 3+ Gram Positive Cocci 2+ Gram Negative Bacilli PERFORMED BY: [place] [address] PATHOLOGIST LEATHER BELT LOOP CUTTER DIANDRA LACY M.D. [facility] Comment on above: Performed By: #### B MP #### [address] Basic Metabolic Panelon 07-28 Anion gap [Moles/Vol] 13.0 mmol/L Normal 6.0-15.0 [facility] Comment on above: Performed By: #### C BC, BMP ####[facility] [id number] [place] [address] Calcium [Mass/Vol] 7.3 mg/dL Low 8.2-10.2 [facility] Comment on above: Performed By: #### C BC, BMP ####[facility] [place] [address] [facility] Chloride [Moles/Vol] 109 mmol/L Normal 95-114 [facility] Comment on above: Performed By: #### C BC, BMP ####[facility] [place] [address] [facility] CO2 [Moles/Vol] 21.9 mmol/L Low 22.0-30.0 [facility] Comment on above: Performed By: #### C BC, BMP ####[facility] [id number] [place] [address] [facility] Creatinine [Mass/Vol] 6.60 mg/dL Significan t change up 0.64-1.27 [facility] Comment on above: Performed By: #### C BC, BMP ####[address] [place] [address] [facility] Creatinine Clr Calc Pharmacy 11.49 [facility] Comment on above: Result Comment: PERF ORMED BY: [facility] [address] [id number] PATHOLOGIST LEATHER BELT LOOP CUTTER DIANDRA LACY M.D. Performed By: #### C BC, BMP ####[address] [place] [address] [facility] Estimated GFR ( Yana 10 [facility] Comment on above: Result Comment: GFR estimated reference range: According to KDOQI guidelines, <60 ml/min/1.73m2 is sufficient to diagnose a patient with chronic kidney disease. Performed By: #### C BC, BMP ####[facility] [place] [address] [facility] Estimated GFR (Non- Am 8 [facility] Comment on above: Performed By: #### C BC, BMP ####[address] [place] [address] [facility] Glucose [Mass/Vol] 140 mg/dL High 70-100 [facility] Comment on above: Result Comment: [place] Glucose Reference Range is dependent on time and content of last meal. Glucose of more than 200 mg/dL in a nonstressed, ambulatory subject supports the diagnosis of Diabetes Mellitus. ADA recommended reference range Performed By: #### C BC, BMP ####[facility] [place] [address] [facility] Potassium [Moles/Vol] 3.9 mmol/L Normal 3.5-5.1 [facility] Comment on above: Performed By: #### C BC, BMP ####[address] [place] [address] [facility] Sodium [Moles/Vol] 140 mmol/L Normal 136-146 [facility] Comment on above: Performed By: #### C BC, BMP ####[address] [place] [id number] [facility] Urea nitrogen [Mass/Vol] 61 mg/dL High 9- [facility] Comment on above: Performed By: #### C BC, BMP ####[id number] [place] Basophils Auto (Bld) [#/Vol] Ordered By: Hiral Interiano on 08-14-2022 Basophils (Bld) [#/Vol] 0.0 10*3/uL 0.0-0.2 [facility] Basophils/100 WBC Auto (Bld) Ordered By: Hiral Interiano on 08-14-2022 Basophils/100 WBC (Bld) 0.2 % . [facility] Complete Blood Count Auto Di ffon 08-14-2022 Basophils (Bld) [#/Vol] 0.0 10*3/uL Normal 0.0-0.2 [facility] Comment on above: Result Comment: PERF ORMED BY: [facility] [address] [place] [address] [place] [id number] PATHOLOGIST LEATHER BELT LOOP CUTTER DIANDRA LACY M.D. Performed By: #### C BC, BMP ####[address] [place] [id number] [facility] Basophils/100 WBC (Bld) 0.2 % Normal . [facility] Comment on above: Performed By: #### C BC, BMP ####[facility] Eosinophils (Bld) [#/Vol] 0.1 10*3/uL Normal 0.0-0.45 [facility] Comment on above: Performed By: #### C RUDOLPH, BMP ####[address] Eosinophils/100 WBC (Bld) 1.0 % Normal . [facility] Comment on above: Performed By: #### C BC, BMP ####[address] Erythrocyte distribution width (RBC) [Ratio] 13.5 % Normal 12.0-14.8 [facility] Comment on above: Performed By: #### C RUDOLPH, BMP ####[address] Hematocrit (Bld) [Volume fraction] 35.4 % Low 38.8-50.0 [facility] Comment on above: Performed By: #### C RUDOLPH, BMP ####[address] Hemoglobin (Bld) [Mass/Vol] 12.0 g/dL Low 13.0-17.0 [facility] Comment on above: Performed By: #### C RUDOLPH, BMP ####[address] Lymphocytes (Bld) [#/Vol] 0.6 10*3/uL Low 1.00-4.8 [facility] Comment on above: Performed By: #### C BC, BMP ####[address] Lymphocytes/100 WBC (Bld) 7.8 % Normal . [facility] Comment on above: Performed By: #### C BC, BMP ####[address] MCH (RBC) [Entitic mass] 33.0 pg Normal 27.5-35.2 [facility] Comment on above: Performed By: #### C BC, BMP ####[address] MCV (RBC) [Entitic vol] 97.3 fL Normal 83.5-101 [facility] Comment on above: Performed By: #### C RUDOLPH, BMP ####[address] Mean Corpuscular HGB Conc 33.9 g/dL Normal 32.5-35.6 [facility] Comment on above: Performed By: #### C RUDOLPH, BMP ####[address] Monocytes (Bld) [#/Vol] 0.8 10*3/uL Normal 0.0-0.8 [facility] Comment on above: Performed By: #### C RUDOLPH, BMP ####[address] Monocytes/100 WBC (Bld) 11.4 % Normal . [facility] Comment on above: Performed By: #### C RUDOLPH, BMP ####[address] Neutrophils (Bld) [#/Vol] 5.9 10*3/uL Normal 1.8-7.7 [facility] Comment on above: Performed By: #### C RUDOLPH, BMP ####[address] Neutrophils/100 WBC (Bld) 79.6 % Normal . [facility] Comment on above: Performed By: #### C RUDOLPH, BMP ####[address] NRBC% 0.1 /100{WBC} Normal 0-0.5 [facility] Comment on above: Performed By: #### C RUDOLPH, BMP ####[address] [id number] [facility] Platelet mean volume (Bld) [Entitic vol] 8.4 fL Normal 6.6-10.1 [facility] Comment on above: Performed By: #### C RUDOLPH, BMP ####[address] [place] [address] [place] Platelets (Bld) [#/Vol] 121 10*3/uL Low 150-450 [facility] Comment on above: Performed By: #### C BC, BMP ####[facility] [address] RBC (Bld) [#/Vol] 3.64 10*6/uL Low 3.90-5.60 [facility] Comment on above: Performed By: #### C BC, BMP ####[facility] WBC (Bld) [#/Vol] 7.4 10*3/uL Normal 4.1-10.5 [facility] Comment on above: Performed By: #### C RUDOLPH, BMP ####[place] [id number] [address] Eosinophils Auto (Bld) [#/Vo l]Ordered By: Hiral Interiano on 08-14-2022 Eosinophils (Bld) [#/Vol] 0.1 10*3/uL 0.0-0.45 [facility] Eosinophils/100 WBC Auto (Bl d)Ordered By: Hiral Interiano on 08-14-2022 Eosinophils/100 WBC (Bld) 1.0 % . [facility] Erythrocyte distribution wid th Auto (RBC) [Ratio]Ordered By: Hiral Interiano on 08-14-2022 Erythrocyte distribution width (RBC) [Ratio] 13.5 % 12.0-14.8 [facility] Glucose Poct Glucometerson 0 08-14-2022 Commemt1 Glu2: Cleaned Meter Normal [facility] Comment on above: Result Comment: PERF ORMED BY: [facility] [address] [place] [address] PATHOLOGIST LEATHER BELT LOOP CUTTER DIANDRA LACY M.D. Performed By: #### P T #### [facility] [address] Glucose [Mass/Vol] 140 mg/dL Normal [facility] Comment on above: Result Comment: [place] om Glucose Reference Range is dependent on time and content of last meal. Glucose of more than 200 mg/dL in a nonstressed, ambulatory subject supports the diagnosis of Diabetes Mellitus. Performed By: #### P T #### [facility] [address] [place] [address] Glucose [Mass/Vol] 125 mg/dL Normal [facility] Comment on above: Result Comment: [place] om Glucose Reference Range is dependent on time and content of last meal. Glucose of more than 200 mg/dL in a nonstressed, ambulatory subject supports the diagnosis of Diabetes Mellitus. PERFORMED BY: [place] [address] PATHOLOGIST LEATHER [employer]T [employer] C[employer]TER DIANDRA LACY M.D. Performed By: #### P T #### [facility] [address] [place] [address] Glucose [Mass/Vol] 140 mg/dL Normal [facility] Comment on above: Result Comment: [place] om Glucose Reference Range is dependent on time and content of last meal. Glucose of more than 200 mg/dL in a nonstressed, ambulatory subject supports the diagnosis of Diabetes Mellitus. PERFORMED BY: [place] [address] PATHOLOGIST LEATHER [employer]TER DIANDRA LACY M.D. Performed By: #### G LULS ####Point of Care testing, Commemt1 Glu2: Cleaned Meter Normal [facility] Comment on above: Result Comment: PERF ORMED BY: [place] [address] PATHOLOGIST LEATHER [employer]TER DIANDRA LACY M.D. Performed By: #### G LULS ####Point of Care testing, Glucose [Mass/Vol] 175 mg/dL Normal [facility] Comment on above: Result Comment: [place] om Glucose Reference Range is dependent on time and content of last meal. Glucose of more than 200 mg/dL in a nonstressed, ambulatory subject supports the diagnosis of Diabetes Mellitus. Performed By: #### G LULS ####Point of Care testing, Gram Stainon 08-14-2022 Microscopic observation Gram stain Nom (Unsp spec) Gram Stain Result 3+ Epithelial Cells 2+ White Blood Cells 3+ Gram Positive Cocci 2+ Gram Negative Bacilli PERFORMED BY: [place] [address] PATHOLOGIST LEATHER [employer]TER DIANDRA LACY M.D. Normal [facility] Comment on above: Performed By: #### B MP #### [address] Hematocrit Auto (Bld) [Volum e fraction]Ordered By: Hiral Interiano on 08-14-2022 Hematocrit (Bld) [Volume fraction] 35.4 % 38.8-50.0 [facility] Hemoglobin [Mass/volume] in BloodOrdered By: Hiral Interiano on 08-14-2022 Hemoglobin (Bld) [Mass/Vol] 12.0 g/dL 13.0-17.0 [facility] Leukocytes [#/volume] correc ike for nucleated erythrocytes in Blood by Automated counOrdered By: Hiral Interiano on 08-14-2022 WBC corrected for nucl RBC Auto (Bld) [#/Vol] 7.4 10*3/uL 4.1-10.5 [facility] Lymphocytes Auto (Bld) [#/Vo l]Ordered By: Hiral Interiano on 08-14-2022 Lymphocytes (Bld) [#/Vol] 0.6 10*3/uL 1.00-4.8 [facility] Lymphocytes/100 WBC Auto (Bl d)Ordered By: Hiral Interiano on 08-14-2022 Lymphocytes/100 WBC (Bld) 7.8 % . [facility] MCH Auto (RBC) [Entitic mass ]Ordered By: Hiral Interiano on 08-14-2022 MCH (RBC) [Entitic mass] 33.0 pg 27.5-35.2 [facility] MCHC Auto (RBC) [Mass/Vol]Or dered By: Hiral Interiano on 08-14-2022 MCHC (RBC) [Mass/Vol] 33.9 g/dL 32.5-35.6 [facility] MCV Auto (RBC) [Entitic vol] Ordered By: Hiral Interiano on 08-14-2022 MCV (RBC) [Entitic vol] 97.3 fL 83.5-101 [facility] Monocytes Auto (Bld) [#/Vol] Ordered By: Hiral Interiano on 08-14-2022 Monocytes (Bld) [#/Vol] 0.8 10*3/uL 0.0-0.8 [facility] Monocytes/100 WBC Auto (Bld) Ordered By: Hiral Interiano on 08-14-2022 Monocytes/100 WBC (Bld) 11.4 % . [facility] Neutrophils Auto (Bld) [#/Vo l]Ordered By: Hiral Interiano on 08-14-2022 Neutrophils (Bld) [#/Vol] 5.9 10*3/uL 1.8-7.7 [facility] Neutrophils/100 WBC Auto (Bl d)Ordered By: Hiral Interiano on 08-14-2022 Neutrophils/100 WBC (Bld) 79.6 % . [facility] No Panel InformationOrdered By: Hiral Interiano on 08-14-2022 Bedside Glucose Comment Glu2: cleaned meter [facility] Nucleated erythrocytes [Pres ence] in Blood by Automated countOrdered By: Hiral Interiano on 08-14-2022 Nucleated RBC Auto Ql (Bld) 0.1 /100{WBC} 0-0.5 [facility] Platelet mean volume Auto (B ld) [Entitic vol]Ordered By: Hiral Interiano on 08-14-2022 Platelet mean volume (Bld) [Entitic vol] 8.4 fL 6.6-10.1 [facility] Platelets Auto (Bld) [#/Vol] Ordered By: Hiral Interiano on 08-14-2022 Platelets (Bld) [#/Vol] 121 10*3/uL 150-450 [facility] RBC Auto (Bld) [#/Vol]Ordere d By: Hiral Interiano on 08-14-2022 RBC (Bld) [#/Vol] 3.64 10*6/uL 3.90-5.60 [facility] WBC Auto (Bld) [#/Vol]Ordere d By: Hiral Interiano on 08-14-2022 WBC (Bld) [#/Vol] 7.4 10*3/uL 4.1-10.5 [facility] Albumin Levelon 08-13-2022 Albumin [Mass/Vol] 3.0 g/dL Low 3.2-5.5 [facility] Comment on above: Result Comment: PERF ORMED BY: [place] [address] PATHOLOGIST LEATHER [employer]T [employer]TER DIANDRA LACY M.D. Performed By: #### B MP #### [address] Basic Metabolic Panelon 07-28 Anion gap [Moles/Vol] 18.4 mmol/L High 6.0-15.0 [facility] Comment on above: Order Comment: REDRA W Performed By: #### B MP #### [address] Calcium [Mass/Vol] 7.0 mg/dL Low 8.2-10.2 [facility] Comment on above: Order Comment: REDRA W Performed By: #### B MP #### [address] Chloride [Moles/Vol] 97 mmol/L Normal 95-114 [facility] Comment on above: Order Comment: REDRA W Performed By: #### B MP #### [facility] [address] [place] [address] CO2 [Moles/Vol] 24.5 mmol/L Normal 22.0-30.0 [facility] Comment on above: Order Comment: REDRA W Performed By: #### B MP #### [facility] [address] [place] [address] [place] Creatinine [Mass/Vol] 10.74 mg/dL Significan t change up 0.64-1.27 [facility] Comment on above: Order Comment: REDRA W Performed By: #### B MP #### [facility] [address] [place] [address] [place] Creatinine Clr Calc Pharmacy 7.06 [facility] Comment on above: Order Comment: REDRA W Result Comment: PERF ORMED BY: [place] [address] PATHOLOGIST LEATHER [employer] C[employer]TER DIANDRA LACY M.D. Performed By: #### B MP #### [place] [address] [place] Estimated GFR ( Yana 6 [facility] Comment on above: Order Comment: REDRA W Result Comment: GFR estimated reference range: According to KDOQI guidelines, <60 ml/min/1.73m2 is sufficient to diagnose a patient with chronic kidney disease. Performed By: #### B MP #### [place] [address] [place] Estimated GFR (Non- Am 5 [facility] Comment on above: Order Comment: REDRA W Performed By: #### B MP #### [address] Glucose [Mass/Vol] 85 mg/dL Normal 70-100 [facility] Comment on above: Order Comment: REDRA W Result Comment: [place] om Glucose Reference Range is dependent on time and content of last meal. Glucose of more than 200 mg/dL in a nonstressed, ambulatory subject supports the diagnosis of Diabetes Mellitus. ADA recommended reference range Performed By: #### B MP #### [place] [address] [place] Potassium [Moles/Vol] 4.9 mmol/L Normal 3.5-5.1 [facility] Comment on above: Order Comment: REDRA W Performed By: #### B MP #### [facility] [address] [place], [place] [id number] [place] Sodium [Moles/Vol] 135 mmol/L Low 136-146 [facility] Comment on above: Order Comment: REDRA W Performed By: #### B MP #### [place] [address] [place] Urea nitrogen [Mass/Vol] 72 mg/dL Significant change up 03-19 [facility] Comment on above: Order Comment: REDRA W Performed By: #### B MP #### [address] Body fluid albumin measureme nt (mass/volume)Ordered By: Alicia Perea on 08-13-2022 Albumin (Body fld) [Mass/Vol] 3.0 g/dL 3.2-5.5 [facility] Complete Blood Count Auto Di ffon 08-13-2022 Basophils (Bld) [#/Vol] 0.0 10*3/uL Normal 0.0-0.2 [facility] Comment on above: Result Comment: PERF ORMED BY: [place] [address] PATHOLOGIST LEATHER [employer]T [employer] C[employer]TER DIANDRA LACY M.D. Performed By: #### C BC #### [address] Basophils/100 WBC (Bld) 0.5 % Normal . [facility] Comment on above: Performed By: #### C BC #### [address] Eosinophils (Bld) [#/Vol] 0.1 10*3/uL Normal 0.0-0.45 [facility] Comment on above: Performed By: #### C BC #### [address] Eosinophils/100 WBC (Bld) 0.9 % Normal . [facility] Comment on above: Performed By: #### C BC #### [address] Erythrocyte distribution width (RBC) [Ratio] 13.7 % Normal 12.0-14.8 [facility] Comment on above: Performed By: #### C BC #### [address] Hematocrit (Bld) [Volume fraction] 34.2 % Low 38.8-50.0 [facility] Comment on above: Performed By: #### C BC #### [address] Hemoglobin (Bld) [Mass/Vol] 11.6 g/dL Low 13.0-17.0 [facility] Comment on above: Performed By: #### C BC #### [address] Lymphocytes (Bld) [#/Vol] 0.9 10*3/uL Low 1.00-4.8 [facility] Comment on above: Performed By: #### C BC #### [address] Lymphocytes/100 WBC (Bld) 9.6 % Normal . [facility] Comment on above: Performed By: #### C BC #### [address] MCH (RBC) [Entitic mass] 32.9 pg Normal 27.5-35.2 [facility] Comment on above: Performed By: #### C BC #### [address] MCV (RBC) [Entitic vol] 96.5 fL Normal 83.5-101 [facility] Comment on above: Performed By: #### C BC #### [address] Mean Corpuscular HGB Conc 34.1 g/dL Normal 32.5-35.6 [facility] Comment on above: Performed By: #### C BC #### [address] Monocytes (Bld) [#/Vol] 1.0 10*3/uL High 0.0-0.8 [facility] Comment on above: Performed By: #### C BC #### [address] Monocytes/100 WBC (Bld) 9.8 % Normal . [facility] Comment on above: Performed By: #### C BC #### [address] Neutrophils (Bld) [#/Vol] 7.8 10*3/uL High 1.8-7.7 [facility] Comment on above: Performed By: #### C BC #### [facility] [address] [place] [address] [place] Neutrophils/100 WBC (Bld) 79.2 % Normal . [facility] Comment on above: Performed By: #### C BC #### [facility] [address] NRBC% 0.1 /100{WBC} Normal 0-0.5 [facility] Comment on above: Performed By: #### C BC #### [facility] [address] Platelet mean volume (Bld) [Entitic vol] 8.7 fL Normal 6.6-10.1 [facility] Comment on above: Performed By: #### C BC #### [facility] [address] [place] [address] [place] Platelets (Bld) [#/Vol] 129 10*3/uL Low 150-450 [facility] Comment on above: Performed By: #### C BC #### [facility] [address] [place] [address] [place] RBC (Bld) [#/Vol] 3.54 10*6/uL Low 3.90-5.60 [facility] Comment on above: Performed By: #### C BC #### [facility] [address] [place] [address] [place] WBC (Bld) [#/Vol] 9.9 10*3/uL Normal 4.1-10.5 [facility] Comment on above: Performed By: #### C BC #### [facility] [address] [place] [address] [place] urethrocystogram retroon 08-13-2022 [place] urethrocystogram retro [facility] [place] [address] [place] [address] Fluoroscopy Report Signed Patient: Victorino Smyth MR#: [id number] : 1940 Acct:[id number] Age/Sex: 82 / M ADM Date: 08/11/22 Loc: 4N Room: 5W2303-1 Type: ADM IN Attending Dr: Hiral Interiano MD Copies to: MD Hiral Pimentel MD Ordering Provider: Ni Olivares MD Date of Service: 08/13/22 FL/FL urethrocystogram retro: . Intraoperative study. Reason for exam: Preop renal failure. Right kidney stone. Findings: 4 images were obtained intraoperatively. Contrast is seen within the right collecting system with subsequent stent placement. Cumulative Air Kerma in mGy: 11 mGy FL/FL urethrocystogram retro Impression: Intraoperative study. Impression dictated by: Ifeanyi Perez Jr., D.OManohar08/13/2022 2:25 PM Dictation Location: [place] [address] Transcribed By: [facility] 08/13/22 142 Dictated By: Ifeanyi Perez Jr, DO 08/13/22 142 Signed By: 08/13/22 142 [facility] Glucose Poct Glucometerson 0 08-13-2022 Commemt1 Glu2: Cleaned Meter [facility] Comment on above: Result Comment: PERF ORMED BY: [place] [address] PATHOLOGIST LEATHER BELT [employer] C[employer]TER DIANDRA LACY M.D. Performed By: #### B MP #### [facility] [address] [place] [address] Glucose [Mass/Vol] 91 mg/dL [facility] Comment on above: Result Comment: [facility] Glucose Reference Range is dependent on time and content of last meal. Glucose of more than 200 mg/dL in a nonstressed, ambulatory subject supports the diagnosis of Diabetes Mellitus. Performed By: #### B MP #### [facility] [address] [place] [address] Commemt1 Glu2: Cleaned Meter [facility] Comment on above: Result Comment: PERF ORMED BY: [place] [address] PATHOLOGIST LEATHER [employer]T [employer] CUTTER DIANDRA LACY M.D. Performed By: #### G LULS ####Point of Care testing, Glucose [Mass/Vol] 94 mg/dL Normal [facility] Comment on above: Result Comment: [facility] Glucose Reference Range is dependent on time and content of last meal. Glucose of more than 200 mg/dL in a nonstressed, ambulatory subject supports the diagnosis of Diabetes Mellitus. Performed By: #### G JOHANNE ####Point of Care testing, Operative Reporton Operative Report [id number]:127 Normal [facility] A1C with Estimated Average G marianna 08-12-2022 Glucose [Mass/Vol] 212 mg/dL Normal [facility] Comment on above: Result Comment: PERF ORMED BY: [facility] [address] [place] [address] PATHOLOGIST LEATHER [employer]T [employer] CUTTER DIANDRA LACY M.D. Performed By: #### B MP #### [facility] [address] HbA1c (Bld) [Mass fraction] 9.0 % High 4.3-5.6 [facility] Comment on above: Result Comment: Incr eased risk for diabetes: 5.7 - 6.4 diabetes: >6.4 glycemic control for adults with diabetes: <7.0 Performed By: #### B MP #### [facility] [address] Basic Metabolic Panelon 07-28 Anion gap [Moles/Vol] 20.6 mmol/L High 6.0-15.0 [facility] Comment on above: Performed By: #### B MP, CBC ####[facility] Calcium [Mass/Vol] 7.1 mg/dL Low 8.2-10.2 [facility] Comment on above: Performed By: #### B MP, CBC ####[facility] [place] [id number] [place] Chloride [Moles/Vol] 104 mmol/L Normal 95-114 [facility] Comment on above: Performed By: #### B MP, CBC ####[facility] [place] [address] [place] CO2 [Moles/Vol] 20.2 mmol/L Low 22.0-30.0 [facility] Comment on above: Performed By: #### B MP, CBC ####[place] [address] [place] [address] [facility] Creatinine [Mass/Vol] 15.50 mg/dL Significan t change up 0.64-1.27 [facility] Comment on above: Performed By: #### B MP, CBC ####[place] [address] [place] [address] [place] Creatinine Clr Calc Pharmacy 4.90 [facility] Comment on above: Result Comment: PERF ORMED BY: [facility] [address] [facility] [place] [address] PATHOLOGIST LEATHER [employer]T [employer]TER DIANDRA LACY M.D. Performed By: #### B MP, CBC ####[address] [address] [facility] Estimated GFR ( Yana 4 [facility] Comment on above: Result Comment: GFR estimated reference range: According to KDOQI guidelines, <60 ml/min/1.73m2 is sufficient to diagnose a patient with chronic kidney disease. Performed By: #### B MP, CBC ####[address] [address] [facility] Estimated GFR (Non- Am 3 [facility] Comment on above: Performed By: #### B MP, CBC ####[facility] [place] [id number] [facility] Glucose [Mass/Vol] 100 mg/dL Significant change down 70-100 [facility] Comment on above: Result Comment: [place] Glucose Reference Range is dependent on time and content of last meal. Glucose of more than 200 mg/dL in a nonstressed, ambulatory subject supports the diagnosis of Diabetes Mellitus. ADA recommended reference range Performed By: #### B MP, CBC ####[address] [address] [place] Potassium [Moles/Vol] 4.8 mmol/L Significan t change down 3.5-5.1 [facility] Comment on above: Performed By: #### B MP, CBC ####[address] Sodium [Moles/Vol] 140 mmol/L Significant change down 136-146 [facility] Comment on above: Performed By: #### B MP, CBC ####[address] Urea nitrogen [Mass/Vol] 133 mg/dL Significant change up - [facility] Comment on above: Performed By: #### B MP, CBC ####[address] Complete Blood Count Auto Di ffon 08-12-2022 Basophils (Bld) [#/Vol] 0.0 10*3/uL Normal 0.0-0.2 [facility] Comment on above: Result Comment: PERF ORMED BY: [facility] [address] [place] [address] PATHOLOGIST LEATHER [employer]T [employer] C[employer]TER DIANDRA LACY M.D. Performed By: #### B MP, CBC ####[address] Basophils/100 WBC (Bld) 0.2 % Normal . [facility] Comment on above: Performed By: #### B MP, CBC ####[address] Eosinophils (Bld) [#/Vol] 0.0 10*3/uL Normal 0.0-0.45 [facility] Comment on above: Performed By: #### B MP, CBC ####[address] Eosinophils/100 WBC (Bld) 0.0 % Normal . [facility] Comment on above: Performed By: #### B MP, CBC ####[address] Erythrocyte distribution width (RBC) [Ratio] 13.6 % Normal 12.0-14.8 [facility] Comment on above: Performed By: #### B MP, CBC ####[address] Hematocrit (Bld) [Volume fraction] 33.6 % Low 38.8-50.0 [facility] Comment on above: Performed By: #### B MP, CBC ####[address] Hemoglobin (Bld) [Mass/Vol] 11.5 g/dL Low 13.0-17.0 [facility] Comment on above: Performed By: #### B MP, CBC ####[address] Lymphocytes (Bld) [#/Vol] 0.6 10*3/uL Low 1.00-4.8 [facility] Comment on above: Performed By: #### B MP, CBC ####[address] Lymphocytes/100 WBC (Bld) 4.4 % Normal . [facility] Comment on above: Performed By: #### B MP, CBC ####[address] MCH (RBC) [Entitic mass] 32.9 pg Normal 27.5-35.2 [facility] Comment on above: Performed By: #### B MP, CBC ####[address] MCV (RBC) [Entitic vol] 95.9 fL Normal 83.5-101 [facility] Comment on above: Performed By: #### B MP, CBC ####[address] Mean Corpuscular HGB Conc 34.3 g/dL Normal 32.5-35.6 [facility] Comment on above: Performed By: #### B MP, CBC ####[address] Monocytes (Bld) [#/Vol] 1.0 10*3/uL High 0.0-0.8 [facility] Comment on above: Performed By: #### B MP, CBC ####[address] Monocytes/100 WBC (Bld) 7.4 % Normal . [facility] Comment on above: Performed By: #### B MP, CBC ####[address] Neutrophils (Bld) [#/Vol] 11.8 10*3/uL High 1.8-7.7 [facility] Comment on above: Performed By: #### B MP, CBC ####[address] Neutrophils/100 WBC (Bld) 88.0 % Normal . [facility] Comment on above: Performed By: #### B MP, CBC ####[address] NRBC% 0.0 /100{WBC} Normal 0-0.5 [facility] Comment on above: Performed By: #### B MP, CBC ####[address] Platelet mean volume (Bld) [Entitic vol] 8.3 fL Normal 6.6-10.1 [facility] Comment on above: Performed By: #### B MP, CBC ####[address] Platelets (Bld) [#/Vol] 162 10*3/uL Normal 150-450 [facility] Comment on above: Performed By: #### B MP, CBC ####[address] RBC (Bld) [#/Vol] 3.51 10*6/uL Low 3.90-5.60 [facility] Comment on above: Performed By: #### B MP, CBC ####[address] WBC (Bld) [#/Vol] 13.4 10*3/uL High 4.1-10.5 [facility] Comment on above: Performed By: #### B MP, CBC ####[facility] [id number] [place] [id number] [facility] Consultation Noteon 08-12-19 Consultation Note [id number]:127 Normal [facility] Glucose Poct Glucometerson 0 08-12-2022 Glucose [Mass/Vol] 114 mg/dL Normal [facility] Comment on above: Result Comment: [facility] Glucose Reference Range is dependent on time and content of last meal. Glucose of more than 200 mg/dL in a nonstressed, ambulatory subject supports the diagnosis of Diabetes Mellitus. PERFORMED BY: [place] [address] PATHOLOGIST LEATHER [employer]T [employer] C[employer]TER DIANDRA LACY M.D. Performed By: #### G JOHANNE #### Point of Care testing , Glucose [Mass/Vol] 111 mg/dL Normal [facility] Comment on above: Result Comment: [facility] Glucose Reference Range is dependent on time and content of last meal. Glucose of more than 200 mg/dL in a nonstressed, ambulatory subject supports the diagnosis of Diabetes Mellitus. PERFORMED BY: [facility] [address] [place] [address] PATHOLOGIST LEATHER [employer]T [employer] C[employer]TER DIANDRA LACY M.D. Performed By: #### G LULS #### Point of Care testing , Glucose [Mass/Vol] 96 mg/dL Normal [facility] Comment on above: Result Comment: [facility] Glucose Reference Range is dependent on time and content of last meal. Glucose of more than 200 mg/dL in a nonstressed, ambulatory subject supports the diagnosis of Diabetes Mellitus. PERFORMED BY: [place] [address] PATHOLOGIST LEATHER [employer]T [employer] CUTTER DIANDRA LACY M.D. Performed By: #### B MP #### [facility] [address] Glucose [Mass/Vol] 91 mg/dL Normal [facility] Comment on above: Result Comment: [place] om Glucose Reference Range is dependent on time and content of last meal. Glucose of more than 200 mg/dL in a nonstressed, ambulatory subject supports the diagnosis of Diabetes Mellitus. PERFORMED BY: [place] [address] PATHOLOGIST LEATHER BELT LOOP CUTTER DIANDRA LACY M.D. Performed By: #### B MP #### [facility] [address] [place] [address] Glucose [Mass/Vol] 93 mg/dL Normal [facility] Comment on above: Result Comment: [place] Glucose Reference Range is dependent on time and content of last meal. Glucose of more than 200 mg/dL in a nonstressed, ambulatory subject supports the diagnosis of Diabetes Mellitus. PERFORMED BY: [place] [address] PATHOLOGIST LEATHER BELT LOOP CUTTER DIANDRA LACY M.D. Performed By: #### P T #### [facility] [address] [place] [address] Commemt1 Glu2: Cleaned Meter Normal [facility] Comment on above: Result Comment: PERF ORMED BY: [place] [address] PATHOLOGIST LEATHER BELT LOOP CUTTER DIANDRA LACY M.D. Performed By: #### G LULS #### Point of Care testing , Glucose [Mass/Vol] 87 mg/dL Normal [facility] Comment on above: Result Comment: [place] Glucose Reference Range is dependent on time and content of last meal. Glucose of more than 200 mg/dL in a nonstressed, ambulatory subject supports the diagnosis of Diabetes Mellitus. Performed By: #### G LULS #### Point of Care testing , Glucose mean value [Mass/vol ume] in Blood Estimated from glycated hemoglobinOrdered By: Hiral Interiano on 08-12-2022 Average glucose Estimated from glycated hemoglobin (Bld) [Mass/Vol] 212 mg/dL [facility] Hemoglobin A1c percentageOrd ered By: Hiral Interiano on 08-12-2022 HbA1c (Bld) [Mass fraction] 9.0 % 4.3-5.6 [facility] Comment on above: Increased risk for d iabetes: 5.7 - 6.4diabetes: >6.4glycemic control for adults with diabetes: <7.0 Anisocytosis LM Ql (Bld)Orde red By: Hiral Interiano on 08-11-2022 Anisocytosis Ql (Bld) Slight [facility] Band form neutrophils/100 WB C Manual cnt (Bld)Ordered By: Hiral Interiano on 08-11-2022 Band form neutrophils/100 WBC (Bld) 1 % 0-5 [facility] Basic Metabolic Panelon 07-28 Anion gap [Moles/Vol] 30.1 mmol/L High 6.0-15.0 [facility] Comment on above: Performed By: #### B MP #### [facility] [address] Calcium [Mass/Vol] 7.2 mg/dL Low 8.2-10.2 [facility] Comment on above: Performed By: #### B MP #### [facility] [address] Chloride [Moles/Vol] 99 mmol/L Normal 95-114 [facility] Comment on above: Performed By: #### B MP #### [facility] [address] [place] [id number] [facility] CO2 [Moles/Vol] 9.3 mmol/L Low 22.0-30.0 [facility] Comment on above: Performed By: #### B MP #### [facility] [address] [place] [address] [place] Creatinine Clr Calc Pharmacy 4.24 Normal [facility] Comment on above: Result Comment: PERF ORMED BY: [place] [address] PATHOLOGIST LEATHER BELT LOOP CUTTER DIANDRA LACY M.D. Performed By: #### B MP #### [facility] [address] [place] [address] [place] Estimated GFR ( Yana 3 [facility] Comment on above: Result Comment: GFR estimated reference range: According to KDOQI guidelines, <60 ml/min/1.73m2 is sufficient to diagnose a patient with chronic kidney disease. Performed By: #### B MP #### [facility] [address] Estimated GFR (Non- Am 3 [facility] Comment on above: Performed By: #### B MP #### [facility] [address] Glucose [Mass/Vol] 507 mg/dL Off scale high 70-100 [facility] Comment on above: Result Comment: Resu lts called at 1409 on 08/11/22 [place] Glucose Reference Range is dependent on time and content of last meal. Glucose of more than 200 mg/dL in a nonstressed, ambulatory subject supports the diagnosis of Diabetes Mellitus. ADA recommended reference range Performed By: #### B MP #### [address] Potassium [Moles/Vol] 7.4 mmol/L Off scale high 3.5-5.1 [facility] Comment on above: Result Comment: Resu lts called at 1409 on 08/11/22 Performed By: #### B MP #### [address] Sodium [Moles/Vol] 131 mmol/L Low 136-146 [facility] Comment on above: Performed By: #### B MP #### [facility] [address] [place] [address] [place] Urea nitrogen [Mass/Vol] 163 mg/dL High 03-19 [facility] Comment on above: Performed By: #### B MP #### [place] [address] [place] Beta Hydroxybuterateon 08-11 Beta Hydroxybuterate 2.40 mmol/L High 0.05-0.27 [facility] Comment on above: Result Comment: PERF ORMED BY: [facility] [address] [place] [address] PATHOLOGIST LEATHER BELT LOOP CUTTER DIANDRA LACY M.D. Performed By: #### B MP #### [facility] [address] Beta-hydroxybutyric acid adina surementOrdered By: Alicia Perea on 08-11-2022 Beta hydroxybutyrate [Mass/Vol] 2.40 mmol/L 0.05-0.27 [facility] Amie cells [Presence] in Blo od by Light microscopyOrdered By: Hiral Interiano on 08-11-2022 Amie cells LM Ql (Bld) Slight [facility] CARDIAC GUIDO 3-6on 3 CK [Catalytic activity/Vol] 162 U/L Normal 39-308 [facility] Comment on above: Performed By: #### T SH, LIPID, T4, FT3, CMP #### [facility] [address] [address] [address] Alicia Patel CK.MB [Mass/Vol] 5.52 ng/mL Critically high <=3.60 [facility] Comment on above: Performed By: #### T SH, LIPID, T4, FT3, CMP #### [facility] [address] [place] [address] [address] Alicia Patel HSTROP 19.7 pg/mL Normal 4.0-76.1 [facility] Comment on above: Result Comment: CUT- OFF POINTS HAVE BEEN ESTABLISHED BASED ON THE FOURTH UNIVERSAL DEFINITIONS OF MYOCARDIAL INFARCTION. THE UPPER REFERENCE LIMIT (URL) OF TROPONIN, DEFINED THE 99TH PERCENTILE OF cTnI DISTRIBUTION IN A REFERENCE POPULATION, HAS BEEN CONFIRMED THE DECISION THRESHOLD FOR [place] DIAGNOSIS. Performed By: #### T SH, LIPID, T4, FT3, CMP #### [facility] [address] [address] [address] Alicia Patel CK [Catalytic activity/Vol] 150 U/L Normal 39-308 [facility] Comment on above: Performed By: #### T SH, LIPID, T4, FT3, CMP #### [facility] [address] [address] [address] Alicia Patel CK.MB [Mass/Vol] 4.99 ng/mL Critically high <=3.60 [facility] Comment on above: Performed By: #### T SH, LIPID, T4, FT3, CMP #### [facility] [address] [address] [address] Alicia Patel HSTROP 16.9 pg/mL Normal 4.0-76.1 [facility] Comment on above: Result Comment: CUT- OFF POINTS HAVE BEEN ESTABLISHED BASED ON THE FOURTH UNIVERSAL DEFINITIONS OF MYOCARDIAL INFARCTION. THE UPPER REFERENCE LIMIT (URL) OF TROPONIN, DEFINED THE 99TH PERCENTILE OF cTnI DISTRIBUTION IN A REFERENCE POPULATION, HAS BEEN CONFIRMED THE DECISION THRESHOLD FOR [place] DIAGNOSIS. Performed By: #### T SH, LIPID, T4, FT3, CMP #### [facility] [address] [place] [address] Dr. Alicia Patel CARDIAC GUIDO ADMITon 023 CK [Catalytic activity/Vol] 128 U/L Normal 39-308 [facility] Comment on above: Performed By: #### T SH, LIPID, T4, FT3, CMP #### [facility] [address] [place] [address] [address] Alicia Patel CK.MB [Mass/Vol] 4.95 ng/mL Critically high <=3.60 [facility] Comment on above: Performed By: #### T SH, LIPID, T4, FT3, CMP #### [facility] [address] [place] [address] Dr. Alicia Patel HSTROP 18.0 pg/mL Normal 4.0-76.1 [facility] Comment on above: Result Comment: CUT- OFF POINTS HAVE BEEN ESTABLISHED BASED ON THE FOURTH UNIVERSAL DEFINITIONS OF MYOCARDIAL INFARCTION. THE UPPER REFERENCE LIMIT (URL) OF TROPONIN, DEFINED THE 99TH PERCENTILE OF cTnI DISTRIBUTION IN A REFERENCE POPULATION, HAS BEEN CONFIRMED THE DECISION THRESHOLD FOR [place] DIAGNOSIS. Performed By: #### T SH, LIPID, T4, FT3, CMP #### [facility] [address] [place] [address] Dr. Alicia Patel LIZZY 188 ng/mL Critically high 16-96 [facility] Comment on above: Performed By: #### T SH, LIPID, T4, FT3, CMP #### [facility] [address] [place] [address] Dr. Alicia Patel CBC AUTO DIFFon 08-11-2022 BASO # 0.0 103/ul Normal 0.0-0.1 [facility] Comment on above: Performed By: #### T SH, LIPID, T4, FT3, CMP #### [facility] [address] [place] [address] Dr. Alicia Patel Basophils/100 WBC (Bld) 0.3 % Normal 0.2-2.0 [facility] Comment on above: Performed By: #### T SH, LIPID, T4, FT3, CMP #### [facility] [address] [place] [address] Dr. Alicia Patel EO # 0.2 103/ul Normal 0.0-0.7 [facility] Comment on above: Performed By: #### T SH, LIPID, T4, FT3, CMP #### [facility] [address] [place] [address] Dr. Alicia Patel Eosinophils/100 WBC (Bld) 1.8 % Normal 0.9-7.0 [facility] Comment on above: Performed By: #### T SH, LIPID, T4, FT3, CMP #### [facility] [address] [place] [address] Dr. Alicia Patel Erythrocyte distribution width (RBC) [Ratio] 13.2 % Normal 11.0-15.0 [facility] Comment on above: Performed By: #### T SH, LIPID, T4, FT3, CMP #### [facility] [address] [place] [address] Dr. Alicia Patel Hematocrit (Bld) [Volume fraction] 36.0 % Critically low 42.0-54.0 [facility] Comment on above: Performed By: #### T SH, LIPID, T4, FT3, CMP #### [facility] [address] [place] [address] Dr. Alicia Patel Hemoglobin (Bld) [Mass/Vol] 12.0 g/dL Critically low 14.0-18.0 [facility] Comment on above: Performed By: #### T SH, LIPID, T4, FT3, CMP #### [facility] [address] [place] [address] Dr. Alicia Patel IG # 0.34 10e3/ul Critically high 0.00-0.03 [facility] Comment on above: Performed By: #### T SH, LIPID, T4, FT3, CMP #### [facility] [address] [place] [address] Dr. Alicia Patel IG % 3.8 % Critically high 0.0-0.5 [facility] Comment on above: Performed By: #### T SH, LIPID, T4, FT3, CMP #### [facility] [address] [place] [address] Dr. Alicia Patel LYMPH # 0.5 103/ul Critically low 1.2-3.8 [facility] Comment on above: Performed By: #### T SH, LIPID, T4, FT3, CMP #### [facility] [address] [place] [address] Dr. Alicia Patel Lymphocytes/100 WBC (Bld) 5.9 % Critically low 20.5-60.0 [facility] Comment on above: Performed By: #### T SH, LIPID, T4, FT3, CMP #### [facility] [address] [place] [address] Dr. Alicia Patel MANUAL DIFF REQ NO Normal [facility] Comment on above: Performed By: #### T SH, LIPID, T4, FT3, CMP #### [facility] [address] [place] [address] Dr. Alicia Patel MCH (RBC) [Entitic mass] 32.3 pg Normal 25.9-34.0 [facility] Comment on above: Performed By: #### T SH, LIPID, T4, FT3, CMP #### [facility] [address] [place] [address] Dr. Alicia Patel MCHC (RBC) [Mass/Vol] 33.3 g/dL Normal 29.9-35.2 [facility] Comment on above: Performed By: #### T SH, LIPID, T4, FT3, CMP #### [facility] [address] [place] [address] Dr. Alicia Patel MCV (RBC) [Entitic vol] 97.0 fL Critically high 80.0-94.0 [facility] Comment on above: Performed By: #### T SH, LIPID, T4, FT3, CMP #### [facility] [address] [place] [address] Dr. Alicia Patel MONO # 0.5 103/ul Normal 0.3-0.8 [facility] Comment on above: Performed By: #### T SH, LIPID, T4, FT3, CMP #### [facility] [address] [place] [address] Dr. Alicia Patel Monocytes/100 WBC (Bld) 5.5 % Normal 1.7-12.0 [facility] Comment on above: Performed By: #### T SH, LIPID, T4, FT3, CMP #### [facility] [address] [place] [address] Dr. Alicia Patel NEUT # 7.5 103/ul Critically high 1.4-6.5 [facility] Comment on above: Performed By: #### T SH, LIPID, T4, FT3, CMP #### [facility] [address] [place] [address] Dr. Alicia Patel Neutrophils/100 WBC (Bld) 82.7 % Critically high 43.0-75.0 [facility] Comment on above: Performed By: #### T SH, LIPID, T4, FT3, CMP #### [facility] [address] [place] [address] Dr. Alicia Patel Platelet mean volume (Bld) [Entitic vol] 10.2 fL Normal 9.5-13.5 [facility] Comment on above: Performed By: #### T SH, LIPID, T4, FT3, CMP #### [facility] [address] [place] [address] Dr. Alicia Patel PLT 191 103/ul Normal 150-450 [facility] Comment on above: Performed By: #### T SH, LIPID, T4, FT3, CMP #### [facility] [address] [place], [place] [address] Dr. Alicia Patel RBC 3.71 106/ul Critically low 4.70-6.10 [facility] Comment on above: Performed By: #### T SH, LIPID, T4, FT3, CMP #### [facility] [address] [place], [place] [address] Dr. Alicia Patel WBC 9.0 103/ul Normal 4.0-11.0 [facility] Comment on above: Performed By: #### T SH, LIPID, T4, FT3, CMP #### [facility] [address] [place], [place] [address] ABD/PELVIS WO CONon 08-11 CT ABD/PELVIS WO CON EXAMINATION: CT ABD /PELVIS WO CON, 08/11/2022 7:33 AM EST HISTORY: CALCULUS OF KIDNEY COMPARISON: CT abdomen/pelvis dated 03/10/2020. TECHNIQUE: CT scan of the abdomen and pelvis was performed without IV contrast. CT dose reduction technique was used, including Automated Exposure Control. FINDINGS: Right kidney: There is an obstructing 1.1 x 1.0 x 0.7 cm calculus small right ureter, just distal to the right UPJ with moderate right pelvocaliectasis. The stranding densities within the right perinephric space, right posterior pararenal space and pelvis are stable. There is a stable 2.1 cm cyst along the anterior margin of the mid upper pole of the right kidney measuring 7 Hounsfield units. Left kidney: Stable atrophic left kidney. The stranding densities within the left perinephric and posterior pararenal spaces and within the left pelvis are stable. Urinary bladder: The urinary bladder is collapsed and not adequately evaluated however no bladder calculus is seen. Lower chest: Mild coronary artery and aortic valvular calcification. Small left infrahilar calcified lymph node related to old granulomatous atelectatic densities within the lower chest bilaterally. There is an incompletely imaged 0.8 cm nodular density left lower chest (series 3 image 1). Solid organs: The liver, gallbladder, biliary tree, pancreas and bilateral adrenal glands are unremarkable. There are scattered calcified granuloma within the spleen. Bowel: There is a small amount of liquid stool within the nondistended colon. There is no colonic wall thickening. There are a few diverticula along the descending and sigmoid colon without diverticulitis. The appendix is unremarkable. There is high attenuation fluid within the esophagus suggesting esophageal dysmotility or gastroesophageal reflux. There is gastric debris and high attenuation fluid within the mildly distended stomach. The small bowel is unremarkable. The bowel gas pattern is nonobstructive. Inflammation: As previously described. There is no free air or free fluid or acute inflammatory reaction. Vasculature: Atheromatous plaque which is predominantly calcified along the lower thoracic aorta and the abdominal aorta. There are atheromatous calcifications scattered within the iliac arteries. There are atheromatous calcifications within the common femoral, femoral and profunda femoral arteries bilaterally. The inferior vena cava is unremarkable. Lymphadenopathy: There are no pathologically enlarged lymph nodes within the abdomen/pelvis. Pelvis: Mild enlargement of the prostate gland containing a punctate calcification. There are a few pelvic phleboliths. Osseous: The bony structures are osteopenic. There is mild levoscoliosis. There are syndesmophytes throughout the image portions of the thoracic spine and additional paravertebral ossifications along the lumbar spine which can be associated with ankylosing spondylitis. There are degenerative changes at the hip joints. IMPRESSION: There is an obstructing 1.1 x 1.0 x 0.7 cm calculus small right ureter, just distal to the right UPJ with moderate right pelvocaliectasis. The stranding densities within the right perinephric space, right posterior pararenal space and pelvis are stable. There is a stable 2.1 cm cyst along the anterior margin of the mid upper pole of the right kidney measuring 7 Hounsfield units. Stable atrophic left kidney. The stranding densities within the left perinephric and posterior pararenal spaces and within the left pelvis are stable. There is an incompletely imaged 0.8 cm nodular density left lower chest (series 3 image 1). A scheduled CT examination of the chest is recommended. Nonobstructive bowel gas pattern. High attenuation fluid within the distal esophagus suggesting dysmotility or gastroesophageal reflux. Mild enlargement of the prostate gland. Additional findings as described in the body the report. Electronically authenticated by: ILA GALLEGO Date: 2022-08-11 08:38 Normal [facility] Covid-19 PCR (CVDTBH)on 07-28 SARS-CoV-2 (COVID-19) RNA SAVANNAH+probe Ql (Unsp spec) Not detected Normal NOT DETECTED [facility] Comment on above: Result Comment: When diagnostic testing is negative, the possibility of a false negative should be considered in the context of a patient's recent exposures and the presence of clinical signs and symptoms consistent with SARS-CoV-2. This test is not yet approved or cleared by the [place] FDA. When there are no FDA-approved or cleared tests available, and other criteria are met, FDA can make tests available under an emergency access mechanism called an Emergency Use Authorization (EUA). The EUA for this test is supported by the [place] of Health and Human Service's declaration that circumstances exist to justify the emergency use of in vitro diagnostics for the detection and/or diagnosis of the virus that causes COVID-19. This EUA will remain in effect for the duration of the COVID-19 declaration justifying emergency of IVDs, unless it is terminated or revoked by the FDA (after which the test may no longer be used). Performed By: #### T SH, LIPID, T4, FT3, CMP #### [facility] [address] [address] [address] Alicia Patel Diff and CBCon 08-11-2022 Anisocytosis Ql (Bld) Slight Normal [facility] Comment on above: Performed By: #### P T #### [address] Band form neutrophils/100 WBC (Bld) 1 % Normal 0-5 [facility] Comment on above: Performed By: #### P T #### [address] Crenated RBC Slight Normal [facility] Comment on above: Performed By: #### P T #### [address] Erythrocyte distribution width (RBC) [Ratio] 13.8 % Normal 12.0-14.8 [facility] Comment on above: Performed By: #### P T #### [address] Hematocrit (Bld) [Volume fraction] 38.1 % Low 38.8-50.0 [facility] Comment on above: Performed By: #### P T #### [address] Hemoglobin (Bld) [Mass/Vol] 12.5 g/dL Low 13.0-17.0 [facility] Comment on above: Performed By: #### P T #### [address] Lymphocytes/100 WBC (Bld) 5 % Low 18-42 [facility] Comment on above: Performed By: #### P T #### [address] MCH (RBC) [Entitic mass] 32.5 pg Normal 27.5-35.2 [facility] Comment on above: Performed By: #### P T #### [address] MCV (RBC) [Entitic vol] 99.0 fL Normal 83.5-101 [facility] Comment on above: Performed By: #### P T #### [address] Mean Corpuscular HGB Conc 32.8 g/dL Normal 32.5-35.6 [facility] Comment on above: Performed By: #### P T #### [address] Microcytosis Slight Normal [facility] Comment on above: Performed By: #### P T #### [address] Monocytes/100 WBC (Bld) 1 % Low 2-11 [facility] Comment on above: Performed By: #### P T #### [address] Platelet Estimate Normal Normal Normal [facility] Comment on above: Performed By: #### P T #### [address] Platelet mean volume (Bld) [Entitic vol] 8.8 fL Normal 6.6-10.1 [facility] Comment on above: Performed By: #### P T #### [address] Platelet Morphology Normal Normal Normal [facility] Comment on above: Result Comment: PERF ORMED BY: [place] [address] PATHOLOGIST LEATHER BELT LOOP CUTTER DIANDRA LACY M.D. Performed By: #### P T #### [address] Platelets (Bld) [#/Vol] 203 10*3/uL Normal 150-450 [facility] Comment on above: Performed By: #### P T #### [address] Poikilocytosis Slight Normal [facility] Comment on above: Performed By: #### P T #### [address] RBC (Bld) [#/Vol] 3.85 10*6/uL Low 3.90-5.60 [facility] Comment on above: Performed By: #### P T #### [address] Segmented neutrophils/100 WBC (Bld) 94 % High 50-70 [facility] Comment on above: Performed By: #### P T #### [address] WBC (Bld) [#/Vol] 9.1 10*3/uL Normal 4.1-10.5 [facility] Comment on above: Performed By: #### P T #### [address] ECG 12 lead ECGon 08-11-2022 ECG 12 lead ECG [facility] [place] [address] [place] [address] Electrocardiograph Report Signed Patient: Victorino Smyth MR#: [id number] : 1940 Acct:[id number] Age/Sex: 82 / M ADM Date: 08/11/22 Loc: 4N Room: [id number] Type: ADM IN Attending Dr: Hiral Interiano MD Ordering Provider: Hiral Interiano MD Date of Service: 08/11/22 ECG/ECG 12 lead ECG: admission, already done Copies to: Test Reason : Blood Pressure : / mmHG Vent. Rate : 101 BPM Atrial Rate : 101 BPM P-R Int : 204 ms QRS Dur : 108 ms QT Int : 364 ms P-R-T Axes : 062 -32 064 degrees QTc Int : 471 ms Sinus tachycardia with 1st degree AV block Left axis deviation Prolonged QT Nonspecific intraventricular conduction delay Abnormal ECG No previous ECGs available Confirmed by YOGESH CISNEROS DO ([id number]) on 08/13/2022 6:20:02 PM Referred By: Electronically Signed By:YOGESH CISNEROS DO Transcribed By: WARREN Signed By Yogesh Cisneros DO 08/13 1820 Normal [facility] ECG 12 lead ECG [facility] [place] [address] Electrocardiograph Report Signed Patient: Victorino Smyth MR#: [id number] : 1940 Acct:[id number] Age/Sex: 82 / M ADM Date: 08/11/22 Loc: Room: [id number] Type: ADM IN Attending Dr: Hiral Interiano MD Ordering Provider: Hiral Interiano MD Date of Service: 08/11/22 ECG/ECG 12 lead ECG: chest pain Copies to: Test Reason : Blood Pressure : / mmHG Vent. Rate : 102 BPM Atrial Rate : 102 BPM P-R Int : 212 ms QRS Dur : 108 ms QT Int : 364 ms P-R-T Axes : 058 -23 049 degrees QTc Int : 474 ms Sinus tachycardia with 1st degree AV block Nonspecific intraventricular conduction delay Nonspecific ST abnormality Abnormal ECG When compared with ECG of 28-JUN-2019 20:47, [place] interval has increased Confirmed by YOGESH CISNEROS DO ([id number]) on 08/11/2022 6:42:37 PM Referred By: Electronically Signed By:YOGESH CISNEROS DO Transcribed By: MUS Signed By Yogesh Cisneros DO 08/11 1842 Normal [facility] ER URINE PROFILEon 3 Bilirubin Ql (U) Negative Normal NEGATIVE [facility] Comment on above: Performed By: #### T SH, LIPID, T4, FT3, CMP #### [facility] [address] [address] [address] Alicia Patel Clarity (U) CLEAR Normal CLEAR [facility] Comment on above: Performed By: #### T SH, LIPID, T4, FT3, CMP #### [facility] [address] [address] [address] Alicia Patel Color (U) LT. YELLOW Normal YELLOW [facility] Comment on above: Performed By: #### T SH, LIPID, T4, FT3, CMP #### [facility] [address] [place] [address] Dr. Alicia Patel ERUROLAND A micrscopic examina tion will be performed if indicated. Normal [facility] Comment on above: Performed By: #### T SH, LIPID, T4, FT3, CMP #### [facility] [address] [address] [address] Alicia Patel Glucose Ql (U) Negative Normal NEGATIVE [facility] Comment on above: Performed By: #### T SH, LIPID, T4, FT3, CMP #### [facility] [address] [address] [address] Alicia Patel Hemoglobin Ql (U) SMALL Abnormal NEGATIVE [facility] Comment on above: Performed By: #### T SH, LIPID, T4, FT3, CMP #### [facility] [address] [address] [address] Alicia Patel Ketones Ql (U) Negative Normal NEGATIVE [facility] Comment on above: Performed By: #### T SH, LIPID, T4, FT3, CMP #### [facility] [address] [address] [address] Alicia Patel LEUKOCYTES Negative Normal NEGATIVE [facility] Comment on above: Performed By: #### T SH, LIPID, T4, FT3, CMP #### [facility] [address] [address] [address] Alicia Patel Nitrite Ql (U) Negative Normal NEGATIVE [facility] Comment on above: Performed By: #### T SH, LIPID, T4, FT3, CMP #### [facility] [address] [address] [address] Alicia Patel pH (U) 6.0 [pH] Normal 5-9 [facility] Comment on above: Performed By: #### T SH, LIPID, T4, FT3, CMP #### [facility] [address] [place] [address] Dr. Alicia Patel Protein (U) [Mass/Vol] 100 mg/dL Abnormal NEGAT ОЛЕГ/ TRACE [facility] Comment on above: Performed By: #### T SH, LIPID, T4, FT3, CMP #### [facility] [address] [place] [address] Dr. Alicia Patel SPEC GRAVITY 1.015 Normal 1.005-<=1. 025 [facility] Comment on above: Performed By: #### T SH, LIPID, T4, FT3, CMP #### [facility] [address] [place] [address] Dr. Alicai Patel UR MICRO IND INDICATED Normal [facility] Comment on above: Performed By: #### T SH, LIPID, T4, FT3, CMP #### [facility] [address] [place] [address] Dr. Alicia Patel Urobilinogen Qn (U) 0.2 {Wil'U}/dL Normal 0.2 - 1. 0 [facility] Comment on above: Performed By: #### T SH, LIPID, T4, FT3, CMP #### [facility] [address] [place] [address] Dr. Alicia Patel Glucose Poct Glucometerson 0 08-11-2022 Glucose [Mass/Vol] 282 mg/dL Normal [facility] Comment on above: Result Comment: [place] Glucose Reference Range is dependent on time and content of last meal. Glucose of more than 200 mg/dL in a nonstressed, ambulatory subject supports the diagnosis of Diabetes Mellitus. PERFORMED BY: [address] [place] [address] PATHOLOGIST LEATHER BELT LOOP CUTTER DIANDRA LACY M.D. Performed By: #### P T #### [address] Commemt1 Glu2: Cleaned Meter [facility] Comment on above: Result Comment: PERF ORMED BY: [address] [place] [address] PATHOLOGIST LEATHER [employer]T LO[employer] CUTTER DIANDRA LACY M.D. Performed By: #### G LULS ####Point of Care testing, Glucose [Mass/Vol] 253 mg/dL Normal [facility] Comment on above: Result Comment: [place] om Glucose Reference Range is dependent on time and content of last meal. Glucose of more than 200 mg/dL in a nonstressed, ambulatory subject supports the diagnosis of Diabetes Mellitus. Performed By: #### G LULS ####Point of Care testing, Commemt1 Glu2: Cleaned Meter [facility] Comment on above: Result Comment: PERF ORMED BY: [place] [address] PATHOLOGIST LEATHER BELT LOOP CUTTER DIANDRA LACY M.D. Performed By: #### P T #### [address] Glucose [Mass/Vol] 304 mg/dL Normal [facility] Comment on above: Result Comment: [place] om Glucose Reference Range is dependent on time and content of last meal. Glucose of more than 200 mg/dL in a nonstressed, ambulatory subject supports the diagnosis of Diabetes Mellitus. Performed By: #### P T #### [facility] [address] [place] [address] Commemt1 [facility] Comment on above: Result Comment: Glu2 : Result Not Confirmed PERFORMED BY: [place] [address] PATHOLOGIST LEATHER BELT LOOP CUTTER DAINDRA LACY M.D. Performed By: #### B MP #### [address] [address] [place] Glucose [Mass/Vol] 440 mg/dL Off scale high [facility] Comment on above: Result Comment: [facility] [place] Glucose Reference Range is dependent on time and content of last meal. Glucose of more than 200 mg/dL in a nonstressed, ambulatory subject supports the diagnosis of Diabetes Mellitus. Performed By: #### B MP #### [facility] [address] [place] [address] Hepatitis Acute Panelon 07-28 HBsAg Screen Negative Normal Negative [facility] Comment on above: Order Comment: DRAW ALL LABS WITH TROP AT 1647 Performed By: #### H EPACUTE #### [facility] , Hepatitis A Antibody IgM Negative Normal Negative [facility] Comment on above: Order Comment: DRAW ALL LABS WITH TROP AT 1647 Performed By: #### H EPACUTE #### [facility] , Hepatitis B Core Antibody IgM Negative Normal Negative [facility] Comment on above: Order Comment: DRAW ALL LABS WITH TROP AT 1647 Performed By: #### H EPACUTE #### [facility] , Hepatitis C Virus Antibody Non-Reactive Normal Non Reactive [facility] Comment on above: Order Comment: DRAW ALL LABS WITH TROP AT 1647 Performed By: #### H EPACUTE #### [facility] , Interpretation Hepatitis C Normal . [facility] Comment on above: Order Comment: DRAW ALL LABS WITH TROP AT 1647 Result Comment: Not infected with HCV unless early or acute infection is suspected (which may be delayed in an immunocompromised individual), or other evidence exists to indicate HCV infection. Performed at: - [facility] [address] [id number] [employer]: Lee Bob PhD, Phone: [phone] PERFORMED BY: [place] [address] PATHOLOGIST LEATHER BELT LOOP CUTTER DIANDRA LACY M.D. Performed By: #### H EPACUTE #### [facility] , Hepatitis B virus surface Ag [Presence] in Serum or Plasma by ImmunoassayOrdered By: Alicia Perea on 08-11-2022 HBV surface Ag IA Ql Negative Negative [facility] Hepatitis C virus IgG Ab [Pr esence] in Serum or Plasma by ImmunoassayOrdered By: Alicia Perea on 08-11-2022 HCV IgG IA Ql Non-Reactive Non Reactive [facility] Hepatitis C virus RNA [Units /volume] (viral load) in Serum or Plasma by SAVANNAH with probOrdered By: Alicia Perea on 08-11-2022 HCV RNA SAVANNAH+probe Qn N/A [facility] Hepatitis C virus RNA [log u nits/volume] (viral load) in Serum or Plasma by SAVANNAH withOrdered By: Alicia Perea on 08-11-2022 HCV RNA SAVANNAH+probe [Log units/Vol] N/A [facility] - CoagulationOrde red By: Hiral Interiano on 08-11-2022 PT Coag (PPP) [Time] 12.2 s 9.0-12.9 [facility] Lymphocytes/100 WBC Manual c nt (Bld)Ordered By: Hiral Interiano on 08-11-2022 Lymphocytes/100 WBC (Bld) 5 % 18-42 [facility] Microcytes LM Ql (Bld)Ordere d By: Hiral Interiano on 08-11-2022 Microcytes Ql (Bld) Slight [facility] Monocytes/100 WBC Manual cnt (Bld)Ordered By: Hiral Interiano on 08-11-2022 Monocytes/100 WBC (Bld) 1 % 2-11 [facility] No Panel InformationOrdered By: Alicia Perea on 08-11-2022 Hepatitis A IgM Antibody Negative Negative [facility] Hepatitis B Core IgM Antibody Negative Negative [facility] Hepatitis C Interpretation See comment . [facility] Comment on above: Not infected with HC V unless early or acute infection issuspected (which may be delayed in an immunocompromisedindividual), or other evidence exists to indicate HCVinfection.Performed at: - [facility] [id number] Director: Lee Bob PhD, Phone: [phone] Hepatitis C RNA Quantitative N/A [facility] POINT OF CARE GLUCOSEon 07-28 Glucose [Mass/Vol] 132 mg/dL Critically high 74-106 [facility] Comment on above: Performed By: #### T SH, LIPID, T4, FT3, CMP #### [facility] [address] [address] [address] Alicia Patel Glucose [Mass/Vol] 117 mg/dL Critically high 74-106 [facility] Comment on above: Performed By: #### T SH, LIPID, T4, FT3, CMP #### [facility] [address] [address] [address] Alicia Patel Glucose [Mass/Vol] 95 mg/dL Normal 74-106 [facility] Comment on above: Performed By: #### P OCGLUC #### [facility] [address] [place] [address] Dr. Alicia Patel PROF CHEM 8 (BAS METB)on Creatinine [Mass/Vol] 17.89 mg/dL High 0.64-1.27 [facility] Comment on above: Performed By: #### T SH, LIPID, T4, FT3, CMP #### [facility] [address] [place] [address] Dr. Alicia Patel Performed By: #### B MP #### [facility] [address] Anion gap [Moles/Vol] 29.5 mmol/L Normal [facility] Comment on above: Performed By: #### T SH, LIPID, T4, FT3, CMP #### [facility] [address] [address] [address] Alicia Patel Calcium [Mass/Vol] 7.7 mg/dL Critically low 8.5-10.1 [facility] Comment on above: Performed By: #### T SH, LIPID, T4, FT3, CMP #### [facility] [address] [place] [address] Dr. Alicia Patel Chloride [Moles/Vol] 102 mmol/L Normal 98-107 [facility] Comment on above: Performed By: #### T SH, LIPID, T4, FT3, CMP #### [facility] [address] [place] [address] Dr. Alicia Patel CO2 [Moles/Vol] 13.5 mmol/L Critically low 21.0-32.0 [facility] Comment on above: Performed By: #### T SH, LIPID, T4, FT3, CMP #### [facility] [address] [place] [address] Dr. Alicia Patel EGFR-AF PERUVIAN 3 mL/min/1.73m2 Critically low >=60 [facility] Comment on above: Performed By: #### T SH, LIPID, T4, FT3, CMP #### [facility] [address] [place] [address] Dr. Alicia Patel EGFR-NON AF PERUVIAN 3 mL/min/1.73m2 Critically low >=60 [facility] Comment on above: Performed By: #### T SH, LIPID, T4, FT3, CMP #### [facility] [address] [place] [address] Dr. Alicia Patel Glucose [Mass/Vol] 105 mg/dL Normal 74-106 [facility] Comment on above: Performed By: #### T SH, LIPID, T4, FT3, CMP #### [facility] [address] [place] [address] Dr. Alicia Patel Potassium [Moles/Vol] 7.0 mmol/L Critically high 3.5-5.1 [facility] Comment on above: Performed By: #### T SH, LIPID, T4, FT3, CMP #### [facility] [address] [place] [address] Dr. Alicia Patel Sodium [Moles/Vol] 138 mmol/L Normal 136-145 [facility] Comment on above: Performed By: #### T SH, LIPID, T4, FT3, CMP #### [facility] [address] [place] [address] Dr. Alicia Patel Urea nitrogen [Mass/Vol] 156.0 mg/dL Critically high 7.0-18.0 [facility] Comment on above: Performed By: #### T SH, LIPID, T4, FT3, CMP #### [facility] [address] [place], [place] [address] Dr. Alicia Patel Urea nitrogen/Creatinine [Mass ratio] 8.7 mg/mg Normal [facility] Comment on above: Performed By: #### T SH, LIPID, T4, FT3, CMP #### [facility] [address] [place], [place] [address] Dr. Alicia Patel Platelet adequacy [Presence] in Blood by Light microscopyOrdered By: Hiral Interiano on 08-11-2022 Platelets LM Ql (Bld) Normal Normal [facility] Platelet morphology finding [Identifier] in BloodOrdered By: Hiral Interiano on 08-11-2022 Platelet morphology finding Nom (Bld) Normal Normal [facility] Platelet poor plasma interna tional normalized ratio (INR) by coagulation assay (relatOrdered By: Hiral Interiano on 08-11-2022 INR Coag (PPP) [Relative time] 1.0 {INR} [facility] Comment on above: INR Therapeutic Rang e A) Pre- and Peroperative OAT started two weeks before surgery. NOT HIP SURGERY: 1.5 - 2.5 HIP SURGERY: 2 - 3B) Primary and secondary prevention of venous THROMBOSIS: 2 - 3C) Active venous thrombosis, pulmonary embolismand prevention of recurrent venous thrombosis: 2 - 3D) Prevention of arterial thromboembolismincluding patients with mechanical heart valves: 3 - 4.5 Poikilocytosis [Presence] in Blood by Light microscopyOrdered By: Hiral Interiano on 08-11-2022 Poikilocytosis LM Ql (Bld) Slight [facility] Prothrombin Time INRon 08-11 INR Coag (PPP) [Relative time] 1.0 {INR} Normal [facility] Comment on above: Result Comment: INR Therapeutic Range A) Pre- and Peroperative OAT started two weeks before surgery. NOT HIP SURGERY: 1.5 - 2.5 HIP SURGERY: 2 - 3 B) Primary and secondary prevention of venous THROMBOSIS: 2 - 3 C) Active venous thrombosis, pulmonary embolism and prevention of recurrent venous thrombosis: 2 - 3 D) Prevention of arterial thromboembolism including patients with mechanical heart valves: 3 - 4.5 PERFORMED BY: [place] [address] PATHOLOGIST LEATHER BELT LOOP CUTTER DIANDRA LACY M.D. Performed By: #### P T #### [address] PT Coag (PPP) [Time] 12.2 s Normal 9.0-12.9 [facility] Comment on above: Performed By: #### P T #### [address] RBC morphologyOrdered By: Donal Interiano on 08-11-2022 RBC morphology finding Nom (Bld) N/A [facility] Segmented neutrophils/100 WB C Manual cnt (Bld)Ordered By: Hiral Interiano on 08-11-2022 Segmented neutrophils/100 WBC (Bld) 94 % 50-70 [facility] Troponin I High Sensitivityo n 08-11-2022 Troponin I High Sensitivity 42 pg/mL High 0-20 [facility] Comment on above: Result Comment: PERF ORMED BY: [place] [address] PATHOLOGIST LEATHER BELT LOOP CUTTER DIANDRA LACY M.D. Performed By: #### H S TROP ####[address] Troponin I High Sensitivity 16 pg/mL Normal 0-20 [facility] Comment on above: Result Comment: PERF ORMED BY: [place] [address] PATHOLOGIST LEATHER BELT LOOP CUTTER DIANDRA LACY M.D. Performed By: #### P T #### [facility] [address] [place] [address] Troponin I.cardiac [Mass/vol ume] in Serum or Plasma by High sensitivity methodOrdered By: Hiral Interiano on 08-11-2022 Troponin I.cardiac High sensitivity method [Mass/Vol] 42 pg/mL 0-20 [facility] URINE MICROSCOPIC ONLYon BACTERIA TRACE Abnormal NONE SEEN [facility] Comment on above: Performed By: #### T SH, LIPID, T4, FT3, CMP #### [facility] [address] [address] [address] Alicia Patel Bacteria identified Cx Nom (U) NOT INDICATED Normal [facility] Comment on above: Performed By: #### T SH, LIPID, T4, FT3, CMP #### [facility] [address] [address] [address] Alicia Patel CAST NONE SEEN Normal NONE SEEN [facility] Comment on above: Performed By: #### T SH, LIPID, T4, FT3, CMP #### [facility] [address] [address] [address] Alicia Patel Crystals LM Nom (Urine sed) NONE SEEN Normal NONE SEEN [facility] Comment on above: Performed By: #### T SH, LIPID, T4, FT3, CMP #### [facility] [address] [address] [address] Alicia Patel Epithelial cells LM Ql (Urine sed) RARE Normal NONE SEEN /RARE [facility] Comment on above: Performed By: #### T SH, LIPID, T4, FT3, CMP #### [facility] [address] [address] [address] Alicia Patel MUCOUS NONE SEEN Normal NONE SEEN [facility] Comment on above: Performed By: #### T SH, LIPID, T4, FT3, CMP #### [facility] [address] [address] [address] Alicia Patel RBC 2-5 Abnormal 0-2 [facility] Comment on above: Performed By: #### T SH, LIPID, T4, FT3, CMP #### [facility] [address] [address] [address] Alicia Patel WBC 2-5 Abnormal NONE SEEN [facility] Comment on above: Performed By: #### T SH, LIPID, T4, FT3, CMP #### [facility] [address] [place] [address] Dr. Alicia Patel XR CHEST 1 Von 08-11-2022 XR CHEST 1 V EXAM: XR CHEST 1 V HISTORY: SHORTNESS OF BREATH COMPARISON: Chest x-ray 01/20/2021 TECHNIQUE: Single frontal view chest x-ray FINDINGS: Borderline prominent heart size, similar to prior exam. Mild bilateral lower lung streaky opacities reflecting atelectasis/scar, less likely infiltrates. Mild left costophrenic angle blunting likely reflect pleural scar/mediastinal fat pad. No large pleural effusions. Left mid lung calcified granuloma, unchanged. No pneumothorax or acute bony abnormality. IMPRESSION: Borderline prominent heart size, similar to prior exam. Mild bilateral lower lung streaky opacities reflecting atelectasis/scar, less likely infiltrates. Correlate clinically. Electronically authenticated by: YOGESH BYERS Date: 2022-08-11 04:27 Normal [facility] XR chest 1V portableon 08-11 XR chest 1V portable [facility] [place] [address] [place] [address] XRay Report Signed Patient: Victorino Smyth MR#: [id number] : 1940 Acct:[id number] Age/Sex: 82 / M ADM Date: 08/11/22 Loc: Room: [address] [place] [address] Type: ADM IN Attending Dr: Hiral Interiano MD Copies to: Judi Chan APRN, BIGG-RUDOLPH Interiano MD Ordering Provider: Judi Chan APRN, ACNP-BC Date of Service: 08/11/22 XR/XR chest 1V portable: RIJ dialysis catheter Plain film chestsingle view HISTORY:RIGHT IJ dialysis catheter insertion. Assessment for pneumothorax. COMPARISON:06/14/19 FINDINGS:RIGHT IJ catheter tip overlies the distal SVC. Cardiac, mediastinal and hilar silhouettes are stable. Mild basilar atelectasis identified. Minimal LEFT basilar pleural reaction identified. No pneumothorax. Bony structures are intact. XR/XR chest 1V portable IMPRESSION: No postprocedural pneumothorax. Impression dictated by: Rehan Fuentes M.D.08/11/2022 4:10 PM Dictation Location: [place] [address] Transcribed By: [facility] 08/11/22 1610 Dictated By: Rehan Fuentes DO 08/11/22 1602 Signed By: 08/11/22 1610 [facility] Covid-19 PCR (CVDTBH)on SARS-CoV-2 (COVID-19) RNA SAVANNAH+probe Ql (Unsp spec) Not detected Normal NOT DETECTED [facility] Comment on above: Result Comment: This test is not yet approved or cleared by the [place] FDA. When there are no FDA-approved or cleared tests available, and other criteria are met, FDA can make tests available under an emergency access mechanism called an Emergency Use Authorization (EUA). The EUA for this test is supported by the [place] of Health and Human Service's (HHS's) declaration that circumstances exist to justify the emergency use of in vitro diagnostics for the detection and/or diagnosis of the virus that causes COVID-19. This EUA will remain in effect (meaning this test can be used) for the duration of the COVID-19 declaration justifying emergency of IVDs, unless it is terminated or revoked by FDA (after which the test may no longer be used). When diagnostic testing is negative, the possibility of a false negative should be considered in the context of a patient's recent exposures and the presence of clinical signs and symptoms consistent with SARS-CoV-2. Performed By: #### T SH, LIPID, T4, FT3, CMP #### [facility] [address] [place] [address] Dr. Alicia Patel INFLUENZA A AND B AGon 08-02 [facility] SEE BELOW Normal [facility] Comment on above: Result Comment: Nega tive for Flu A protein angiten. Infection due to Flu A cannot be ruled out. Flu A angiten in the sample may be below the detection limit of the test. Performed By: #### T SH, LIPID, T4, FT3, CMP #### [facility] [address] [place] [address] Dr. Alicia Patel [facility] SEE BELOW Normal [facility] Comment on above: Result Comment: Nega tive for Flu B protein antigen. Infection due to Flu B cannot be ruled out. Flu B antigen in the sample may be below the detection limit of the test. Performed By: #### T SH, LIPID, T4, FT3, CMP #### [facility] [address] [place] [address] Dr. Alicia Patel INFLUENZA A AG Negative Normal NEGATIVE SEE COMMENT [facility] Comment on above: Performed By: #### T SH, LIPID, T4, FT3, CMP #### [facility] [address] [place] [address] Dr. Alicia Patel INFLUENZA B AG Negative Normal NEGATIVE SEE COMMENT [facility] Comment on above: Performed By: #### T SH, LIPID, T4, FT3, CMP #### [facility] [address] [place] [address] Dr. Alicia Patel PTH INTACTon 05-25-2022 PTH, Intact 47 pg/mL Normal 15-65 [facility] Comment on above: Performed By: #### T SH, LIPID, T4, FT3, CMP #### [facility] [address] [place] [address] Dr. Alicia Patel ALBUMINon 05-24-2022 Albumin [Mass/Vol] 3.9 g/dL Normal 3.4-5.0 [facility] Comment on above: Performed By: #### T SH, LIPID, T4, FT3, CMP #### [facility] [address] [place] [address] Dr. Alicia Patel HEMOGRAM AND PLATELon 2021 Hematocrit (Bld) [Volume fraction] 42.1 % Normal 42.0-54.0 [facility] Comment on above: Performed By: #### T SH, LIPID, T4, FT3, CMP #### [facility] [address] [place] [address] Dr. Alicia Patel Hemoglobin (Bld) [Mass/Vol] 14.7 g/dL Normal 14.0-18.0 [facility] Comment on above: Performed By: #### T SH, LIPID, T4, FT3, CMP #### [facility] [address] [place] [address] Dr. Alicia Patel MCH (RBC) [Entitic mass] 33.2 pg Normal 25.9-34.0 [facility] Comment on above: Performed By: #### T SH, LIPID, T4, FT3, CMP #### [facility] [address] [place] [address] Dr. Alicia Patel MCHC (RBC) [Mass/Vol] 34.9 g/dL Normal 29.9-35.2 [facility] Comment on above: Performed By: #### T SH, LIPID, T4, FT3, CMP #### [facility] [address] [place] [address] Dr. Alicia Patel MCV (RBC) [Entitic vol] 95.0 fL Critically high 80.0-94.0 [facility] Comment on above: Performed By: #### T SH, LIPID, T4, FT3, CMP #### [facility] [address] [place] [address] Dr. Alicia Patel PLT 190 103/ul Normal 150-450 [facility] Comment on above: Performed By: #### T SH, LIPID, T4, FT3, CMP #### [facility] [address] [place] [address] Dr. Alicia Patel RBC 4.43 106/ul Critically low 4.70-6.10 [facility] Comment on above: Performed By: #### T SH, LIPID, T4, FT3, CMP #### [facility] [address] [place] [address] Dr. Alicia Patel WBC 7.0 103/ul Normal 4.0-11.0 [facility] Comment on above: Performed By: #### T SH, LIPID, T4, FT3, CMP #### [facility] [address] [place] [address] Dr. Alicia Patel MAGNESIUMon 05-24-2022 Magnesium [Mass/Vol] 1.7 mg/dL Critically low 1.8-2.4 [facility] Comment on above: Performed By: #### T SH, LIPID, T4, FT3, CMP #### [facility] [address] [place] [address] Dr. Alicia Patel PHOSPHORUSon 05-24-2022 Phosphate [Mass/Vol] 3.7 mg/dL Normal 2.6-4.7 [facility] Comment on above: Performed By: #### T SH, LIPID, T4, FT3, CMP #### [facility] [address] [place] [address] Dr. Alicia Patel PROF CHEM 8 (BAS METB)on Anion gap [Moles/Vol] 11.2 mmol/L Normal Th [facility] Comment on above: Performed By: #### U RTPCR #### [facility] [address] [address] [address] Alicia Patel Calcium [Mass/Vol] 9.1 mg/dL Normal 8.5-10.1 [facility] Comment on above: Performed By: #### U RTPCR #### [facility] [address] [address] [address] Alicia Patel Chloride [Moles/Vol] 104 mmol/L Normal 98-107 [facility] Comment on above: Performed By: #### U RTPCR #### [facility] [address] [address] [address] Alicia Patel CO2 [Moles/Vol] 29.2 mmol/L Normal 21.0-32.0 [facility] Comment on above: Performed By: #### U RTPCR #### [facility] [address] [address] [address] Alicia Patel Creatinine [Mass/Vol] 1.40 mg/dL Critically high 0.70-1.30 [facility] Comment on above: Performed By: #### U RTPCR #### [facility] [address] [address] [address] Alicia Patel EGFR-AF PERUVIAN 59 mL/min/1.73m2 Critically low >=60 [facility] Comment on above: Performed By: #### U RTPCR #### [facility] [address] [address] [address] Alicia Patel EGFR-NON AF PERUVIAN 49 mL/min/1.73m2 Critically low >=60 [facility] Comment on above: Performed By: #### U RTPCR #### [facility] [address] [address] [address] Alicia Patel Glucose [Mass/Vol] 148 mg/dL Critically high 74-106 T [facility] Comment on above: Performed By: #### U RTPCR #### [facility] [address] [address] [address] Alicia Patel Potassium [Moles/Vol] 4.4 mmol/L Normal 3.5-5.1 [facility] Comment on above: Performed By: #### U RTPCR #### [facility] [address] [address] [address] Alicia Patel Sodium [Moles/Vol] 140 mmol/L Normal 136-145 [facility] Comment on above: Performed By: #### U RTPCR #### [facility] [address] [place] [address] Dr. Alicia Patel Urea nitrogen [Mass/Vol] 16.0 mg/dL Normal 7.0-18.0 [facility] Comment on above: Performed By: #### U RTPCR #### [facility] [address] [place] [address] Dr. Alicia Patel Urea nitrogen/Creatinine [Mass ratio] 11.4 mg/mg Normal [facility] Comment on above: Performed By: #### U RTPCR #### [facility] [address] [place] [address] Dr. Alicia Patel UA RANDOM W/MICROSCOPICon BACTERIA NONE SEEN Normal NONE SEEN [facility] Comment on above: Performed By: #### T SH, LIPID, T4, FT3, CMP #### [facility] [address] [place] [address] Dr. Alicia Patel Bilirubin Ql (U) Negative Normal NEGATIVE [facility] Comment on above: Performed By: #### T SH, LIPID, T4, FT3, CMP #### [facility] [address] [place] [address] Dr. Alicia Patel CAST NONE SEEN Normal NONE SEEN [facility] Comment on above: Performed By: #### T SH, LIPID, T4, FT3, CMP #### [facility] [address] [place] [address] Dr. Alicia Patel Clarity (U) CLEAR Normal CLEAR [facility] Comment on above: Performed By: #### T SH, LIPID, T4, FT3, CMP #### [facility] [address] [address] [address] Alicia Patel Color (U) LT. YELLOW Normal YELLOW [facility] Comment on above: Performed By: #### T SH, LIPID, T4, FT3, CMP #### [facility] [address] [address] [address] Alicia Patel Crystals LM Nom (Urine sed) NONE SEEN Normal NONE SEEN [facility] Comment on above: Performed By: #### T SH, LIPID, T4, FT3, CMP #### [facility] [address] [address] [address] Alicia Patel Epithelial cells LM Ql (Urine sed) FEW Abnormal NONE SEEN /RARE [facility] Comment on above: Performed By: #### T SH, LIPID, T4, FT3, CMP #### [facility] [address] [place] [address] Dr. Alicia Patel Glucose Ql (U) Negative Normal NEGATIVE [facility] Comment on above: Performed By: #### T SH, LIPID, T4, FT3, CMP #### [facility] [address] [place] [address] Dr. Alicia Patle Hemoglobin Ql (U) Negative Normal NEGATIVE [facility] Comment on above: Performed By: #### T SH, LIPID, T4, FT3, CMP #### [facility] [address] [place] [address] Dr. Alicia Patel Ketones Ql (U) Negative Normal NEGATIVE [facility] Comment on above: Performed By: #### T SH, LIPID, T4, FT3, CMP #### [facility] [address] [place] [address] Dr. Alicia Patel LEUKOCYTES Negative Normal NEGATIVE [facility] Comment on above: Performed By: #### T SH, LIPID, T4, FT3, CMP #### [facility] [address] [address] [address] Alicia Patel MUCOUS NONE SEEN Normal NONE SEEN [facility] Comment on above: Performed By: #### T SH, LIPID, T4, FT3, CMP #### [facility] [address] [place] [address] Dr. Alicia Patel Nitrite Ql (U) Negative Normal NEGATIVE [facility] Comment on above: Performed By: #### T SH, LIPID, T4, FT3, CMP #### [facility] [address] [place] [address] Dr. Alicia Patel pH (U) 5.5 [pH] Normal 5-9 [facility] Comment on above: Performed By: #### T SH, LIPID, T4, FT3, CMP #### [facility] [address] [place] [address] Dr. Alicia Patel RBC NONE SEEN Abnormal 0-2 [facility] Comment on above: Performed By: #### T SH, LIPID, T4, FT3, CMP #### [facility] [address] [place] [address] Dr. Alicia Patel SPEC GRAVITY 1.020 Normal 1.005-<=1. 025 [facility] Comment on above: Performed By: #### T SH, LIPID, T4, FT3, CMP #### [facility] [address] [place] [address] Dr. Alicia Patel UA PROTEIN Negative Normal NEGATIVE/ TRACE [facility] Comment on above: Performed By: #### T SH, LIPID, T4, FT3, CMP #### [facility] [address] [place] [address] Dr. Alicia Patel Urobilinogen Qn (U) 0.2 {Wil'U}/dL Normal 0.2 - 1. 0 [facility] Comment on above: Performed By: #### T SH, LIPID, T4, FT3, CMP #### [facility] [address] [place] [address] Dr. Alicia Patel WBC NONE SEEN Normal NONE SEEN [facility] Comment on above: Performed By: #### T SH, LIPID, T4, FT3, CMP #### [facility] [address] [place] [address] Dr. Alicia Patel URIC ACID SERUMon 05-24-2022 Urate [Mass/Vol] 5.6 mg/dL Normal 3.5-7.2 [facility] Comment on above: Performed By: #### T SH, LIPID, T4, FT3, CMP #### [facility] [address] [address] [address] Alicia Patel URINE T PROTEIN CREAT RATIOo n 05-24-2022 Protein (U) [Mass/Vol] 26.0 mg/dL Critically high <=12.0 [facility] Comment on above: Performed By: #### T SH, LIPID, T4, FT3, CMP #### [facility] [address] [address] [address] Alicia Patel UR PROT CREAT RAT 0.34 Normal [facility] Comment on above: Performed By: #### T SH, LIPID, T4, FT3, CMP #### [facility] [address] [address] [address] Alicia Patel URINE CREAT 77.39 mg/dL Normal 20.00-300. 00 [facility] Comment on above: Performed By: #### T SH, LIPID, T4, FT3, CMP #### [facility] [address] [address] [address] Alicia Patel Vital Signs Date Time Vital Sign Value Performing Clinician Facility 06-14-2023 11:00-0500 Body height 175.26 cm Alicia Brit Other [facility] Other 06-14-2023 11:00-0500 Body mass index (BMI) [Ratio] 38.51 kg/m2 Alicia Brit Other [facility] Other 06-14-2023 11:00-0500 Body temperature 97.2 [degF] Alicia Brit Other [facility] Other 06-14-2023 11:00-0500 Body weight 118.3 kg Alicia Brit Other [facility] Other 06-14-2023 11:00-0500 Diastolic blood pressure 72 mm[Hg] Alicia Brit Other [facility] Other 06-14-2023 11:00-0500 Respiratory rate 18 /min Alicia Brit Other [facility] Other 06-14-2023 11:00-0500 SaO2% (BldA) [Mass fraction] 95 % Alicia Brit Other [facility] Other 06-14-2023 11:00-0500 Systolic blood pressure 122 mm[Hg] Alicia Brit Other [facility] Other 11-29-2022 10:20-0400 Body height 175.26 cm Alicia Brit Other [facility] Other 11-29-2022 10:20-0400 Body mass index (BMI) [Ratio] 36.77 kg/m2 Alicia Brit Other [facility] Other 11-29-2022 10:20-0400 Body temperature 96.3 [degF] Alicia Brit Other [facility] Other 11-29-2022 10:20-0400 Body weight 112.95 kg Alicia Brit Other [facility] Other 11-29-2022 10:20-0400 Diastolic blood pressure 72 mm[Hg] Alicia Brit Other [facility] Other 11-29-2022 10:20-0400 Respiratory rate 18 /min Alicia Brit Other [facility] Other 11-29-2022 10:20-0400 SaO2% (BldA) [Mass fraction] 96 % Alicia Brit Other [facility] [employer] Other 11-29-2022 10:20-0400 Systolic blood pressure 137 mm[Hg] Alicia Brit Other [facility] [employer] Other 10-07-2022 17:25-0400 Heart rate 66 /min Ni OLIVARES [facility] 10-07-2022 17:25-0400 SaO2% (BldA) [Mass fraction] 92 % Ni OLIVARES [facility] 10-07-2022 17:25-0400 Respiratory rate 16 /min Ni OLIVARES [facility] 10-07-2022 17:24-0400 Body temperature 97.7 [degF] Ni OLIVARES [facility] 10-07-2022 17:24-0400 Diastolic blood pressure 74 mm[Hg] Ni OLIVARES [facility] 10-07-2022 17:24-0400 Mean blood pressure 106 mm[Hg] Ni OLIVARES [facility] 10-07-2022 17:24-0400 Systolic blood pressure 170 mm[Hg] Ni OLIVARES [facility] 10-07-2022 16:18-0400 Heart rate 61 /min Ni OLIVARES [facility] 10-07-2022 16:18-0400 SaO2% (BldA) [Mass fraction] 95 % [facility] 10-07-2022 16:17-0400 Diastolic blood pressure 81 mm[Hg] [facility] [employer] [facility] 10-07-2022 16:17-0400 Mean blood pressure 103 mm[Hg] Ni [facility] 10-07-2022 16:17-0400 Systolic blood pressure 148 mm[Hg] Ni [facility] 10-07-2022 16:17-0400 Respiratory rate 16 /min Ni [facility]OOK [facility] 10-07-2022 16:11-0400 Diastolic blood pressure 75 mm[Hg] Ni [facility] 10-07-2022 16:11-0400 Heart rate 58 /min Ni [facility] 10-07-2022 16:11-0400 Mean blood pressure 98 mm[Hg] Ni [facility] 10-07-2022 16:11-0400 Respiratory rate 17 /min Ni [facility] 10-07-2022 16:11-0400 SaO2% (BldA) [Mass fraction] 97 % [facility] 10-07-2022 16:11-0400 Systolic blood pressure 144 mm[Hg] Ni [facility] 10-07-2022 16:00-0400 Mean blood pressure 92 mm[Hg] Ni [facility] 10-07-2022 16:00-0400 Respiratory rate 13 /min Ni [facility] 10-07-2022 15:55-0400 Mean blood pressure 86 mm[Hg] Ni [facility] 10-07-2022 15:55-0400 Respiratory rate 17 /min Ni [facility] 10-07-2022 15:46-0400 Body temperature 98.06 [degF] Ni OLIVARES [facility] 10-07-2022 15:40-0400 Respiratory rate 15 /min Ni OLIVARES [facility] 10-07-2022 10:14-0400 Mean blood pressure 97 mm[Hg] Ni OLIVARES [facility] 10-07-2022 10:14-0400 Blood Pressure Location Ni OLIVARES [facility] 10-07-2022 10:13-0400 Heart rate 64 /min Ni OLIVARES [facility] 10-07-2022 10:12-0400 Body temperature 98.06 [degF] Ni OLIVARES [facility] 10-07-2022 10:12-0400 Blood Pressure Location Ni OLIVARES [facility] 09-15-2022 14:40-0400 Body height 175.26 cm Alicia Brit Other [employer] [facility] [employer] Other 09-15-2022 14:40-0400 Body mass index (BMI) [Ratio] 37.48 kg/m2 Alicia Brit Other [facility] [facility] Other 09-15-2022 14:40-0400 Body weight 115.12 kg Alicia Brit Other [facility] Other 09-15-2022 14:40-0400 Diastolic blood pressure 73 mm[Hg] Alicia Brit Other [facility] [facility] Other 09-15-2022 14:40-0400 Respiratory rate 18 /min Alicia Brit Other [facility] [employer] Other 09-15-2022 14:40-0400 SaO2% (BldA) [Mass fraction] 97 % Alicia Brit Other [employer] [facility] [employer] Other 09-15-2022 14:40-0400 Systolic blood pressure 138 mm[Hg] Alicia Brit Other [facility] [employer] Other 09-06-2022 10:01-0400 Blood Pressure Location [facility] [employer] [facility] 09-06-2022 10:01-0400 Diastolic blood pressure 70 mm[Hg] [facility] [employer] [facility] 09-06-2022 10:01-0400 Heart rate 68 /min [facility] [employer] [facility] 09-06-2022 10:01-0400 Systolic blood pressure 132 mm[Hg] Ni [employer] [facility] 08-15-2022 12:16-0500 Body temperature 97.8 [degF] MD Tray Alfaro Work Phone: [facility] 08-15-2022 12:16-0500 Diastolic blood pressure 92 mm[Hg] MD Tray Alfaro Work Phone: [facility] 08-15-2022 12:16-0500 Heart rate 68 /min MD Tray Alfaro Work Phone: [facility] 08-15-2022 12:16-0500 Respiratory rate 18 /min MD Tray Alfaro Work Phone: [facility] 08-15-2022 12:16-0500 SaO2% (BldA) [Mass fraction] 95 % MD Tray Alfaro Work Phone: [facility] 08-15-2022 12:16-0500 Systolic blood pressure 146 mm[Hg] MD Tray Alfaro Work Phone: [facility] 08-15-2022 05:08-0500 Body weight 118.2 kg MD Tray Alfaro Work Phone: [facility] 08-13-2022 13:10-0500 Inhaled oxygen flow rate 8 L/min MD Tray Alfaro Work Phone: [facility] 08-13-2022 11:54-0500 Body height 177.8 cm MD Tray Alfaro Work Phone: [facility] 08-13-2022 11:54-0500 Body mass index (BMI) [Ratio] 37.3 kg/m2 MD Tray Alfaro Work Phone: [facility] 06-01-2022 11:40-0500 Body height 175.26 cm Alicia Brit Other [employer] [facility] Other 06-01-2022 11:40-0500 Body mass index (BMI) [Ratio] 37.77 kg/m2 Alicia Brti Other [facility] [facility] Other 06-01-2022 11:40-0500 Body temperature 97.5 [degF] Alicia Brit Other [facility] Other 06-01-2022 11:40-0500 Body weight 116.03 kg Alicia Brit Other [facility] Other 06-01-2022 11:40-0500 Diastolic blood pressure 71 mm[Hg] Alicia Brit Other [facility] Other 06-01-2022 11:40-0500 Respiratory rate 18 /min Alicia Brit Other [facility] Other 06-01-2022 11:40-0500 SaO2% (BldA) [Mass fraction] 93 % Alicia Brit Other [facility] Other 06-01-2022 11:40-0500 Systolic blood pressure 134 mm[Hg] Alicia Brit Other [facility] Other 11-24-2021 11:20-0400 Body height 175.26 cm Alicia Brit Other [facility] Other 11-24-2021 11:20-0400 Body mass index (BMI) [Ratio] 36.26 kg/m2 Alicia Brit Other [facility] Other 11-24-2021 11:20-0400 Body temperature 96.4 [degF] Alicia Brit Other [facility] Other 11-24-2021 11:20-0400 Body weight 111.4 kg Alicia Brit Other [facility] Other 11-24-2021 11:20-0400 Diastolic blood pressure 72 mm[Hg] Alicia Brit Other [facility] Other 11-24-2021 11:20-0400 Respiratory rate 18 /min Alicia Brit Other [facility] Other 11-24-2021 11:20-0400 SaO2% (BldA) [Mass fraction] 95 % Alicia Brit Other [facility] Other 11-24-2021 11:20-0400 Systolic blood pressure 139 mm[Hg] Alicia Brit Other [facility] [facility] Other 10-26-2021 09:17-0400 Blood Pressure Location Milton BRAUN [facility] 10-26-2021 09:17-0400 Diastolic blood pressure 69 mm[Hg] Milton BRAUN [facility] 10-26-2021 09:17-0400 Heart rate 64 /min Milton BRAUN [facility] 10-26-2021 09:17-0400 Respiratory rate 16 /min Milton BRAUN [facility] 10-26-2021 09:17-0400 Systolic blood pressure 139 mm[Hg] Milton BRAUN [facility] 05-26-2021 11:00-0500 Body height 175.26 cm Alicia Brit Other [facility] Other 05-26-2021 11:00-0500 Body mass index (BMI) [Ratio] 34.4 kg/m2 Alicia Brit Other [facility] Other 05-26-2021 11:00-0500 Body temperature 96.9 [degF] Alicia Brit Other [facility] Other 05-26-2021 11:00-0500 Body weight 105.69 kg Alicia Brit Other [facility] Other 05-26-2021 11:00-0500 Diastolic blood pressure 80 mm[Hg] Alicia Brit Other [facility] Other 05-26-2021 11:00-0500 Respiratory rate 18 /min Alicia Brit Other [facility] Other 05-26-2021 11:00-0500 SaO2% (BldA) [Mass fraction] 94 % Alicia Brit Other [facility] Other 05-26-2021 11:00-0500 Systolic blood pressure 136 mm[Hg] Alicia Brit Other [employer] [facility] Other Encounters Encounter Date Encounter Type Care Provider Facility Start: 06-12-2024 ambulatory Ni OLIVARES Facility :[facility] Start: 07-02-2023 End: 07-02-2023 ambulatory Ni Olivares Facility:[facility] Start: 07-02-2023 End: 07-02-2023 ambulatory MD Tray Alfaro Work Phone: [facility] Work Phone: Start: 07-02-2023 End: 07-02-2023 Patient encounter procedure MD Tray Alfaro Work Phone: [facility] [place] Work Phone: Start: 06-28-2023 End: 06-28-2023 ambulatory Ni Olivares Facility:[facility] Start: 06-28-2023 End: 06-28-2023 ambulatory MD Tray Alfaro Work Phone: [facility] Work Phone: Start: 06-28-2023 End: 06-28-2023 Patient encounter procedure MD Tray Alfaro Work Phone: [facility] [place] Work Phone: Start: 06-16-2023 End: 06-16-2023 ambulatory Ni Olivares Facility:[facility] Start: 06-16-2023 End: 06-16-2023 ambulatory MD Tray Alfaro Work Phone: [facility] Work Phone: Start: 06-16-2023 End: 06-16-2023 Patient encounter procedure MD Tray Alfaro Work Phone: [facility] [place] Work Phone: Start: 06-14-2023 Office outpatient vi sit 25 minutes Alicia Brit [facility] Start: 06-14-2023 End: 06-15-2023 ambulatory Ni OLIVARES [facility] [employer] Other Start: 06-14-2023 End: 06-14-2023 Patient encounter procedure Ni OLIVARES [facility] Start: 01-26-2023 End: 01-26-2023 ambulatory [facility] Start: 12-20-2022 End: 12-21-2022 ambulatory Ni OLIVARES Facility[facility] Start: 12-20-2022 End: 12-20-2022 Patient encounter procedure Ni OLIVARES [facility] Start: 12-02-2022 End: 12-02-2022 ambulatory Ni OLIVARES Facility:[facility] Start: 11-29-2022 End: 11-29-2022 ambulatory Alicia Brit Other [facility] [employer] Other Start: 11-29-2022 Office outpatient vi sit 25 minutes Alicia Brit [facility] Start: 11-18-2022 End: 11-19-2022 ambulatory MD ALICIA PEREA Facility:[facility] Start: 11-18-2022 End: 11-19-2022 ambulatory Ni OLIVARES Facility:[facility] Start: 11-17-2022 End: 11-17-2022 ambulatory [facility] Start: 11-17-2022 End: 11-17-2022 Encounter for preprocedural cardiovascular examination [facility] Start: 11-10-2022 End: 11-24-[address] TRAY ALFARO . Facility: Start: 11-08-2022 End: 11-08-[address] TRAY ALFARO . Facility: Start: 11-06-2022 End: 11-07-[address] TRAY ALFARO . Facility: Start: 10-29-2022 End: 10-30-2022 ambulatory Milton BRAUN Facility:[facility] Start: 10-29-2022 End: 10-29-2022 Patient encounter procedure Milton BRAUN [facility] Start: 10-26-2022 End: 10-27-2022 ambulatory IRIS CORONEL Facility: Start: 10-22-2022 End: 10-23-[address] MILTON BRAUN . Facility: Start: 10-15-2022 End: 10-16-[address] TRAY ALFARO . Facility: Start: 10-14-2022 End: 10-15-2022 ambulatory IRIS CORONEL Facility: Start: 10-14-2022 End: 10-14-2022 ambulatory [facility] Start: 10-07-2022 End: 10-07-2022 ambulatory Ni OLIVARES Facility:[facility] Start: 10-07-2022 End: 10-07-2022 Admission to same day surgery center Ni OLIVARES [facility] Start: 09-15-2022 End: 09-15-2022 ambulatory Alicia Perea Other [employer] [facility] Other Start: 09-15-2022 Office outpatient vi sit 25 minutes Alicia Brit [facility] Start: 09-14-2022 End: 09-15-2022 ambulatory Ni OLIVARES Facility:[id number] Start: 09-13-2022 End: 09-14-2022 ambulatory ALICIA BRIT Facility:[facility] Start: 09-06-2022 End: 09-07-2022 ambulatory Ni OLIVARES Facility:[facility] Start: 09-06-2022 End: 09-06-2022 Patient encounter procedure Ni OLIVARES [facility] Start: 09-01-2022 End: 09-02-[address] NI OLIVARES Facility:[facility] Start: 08-31-2022 End: 08-31-2022 ambulatory Tray Alfaro Facility:[facility] Start: 08-24-2022 End: 08-25-[address] TRAY ALFARO . Facility:[facility] Start: 08-22-2022 End: 08-22-[address] TRAY ALFARO . Facility:[facility] Start: 08-21-2022 End: 08-22-[address] TRAY ALFARO . Facility:[facility] Start: 08-18-2022 End: 08-19-2022 ambulatory ALICIA PURDYDIR Facility:[facility] Start: 08-16-2022 ambulatory Ni OLIVARES Facility:[facility] Start: 08-11-2022 ambulatory Facility:[facility] Start: 08-11-2022 Patient encounter status MD Iglesias Work Phone: [facility] Start: 08-11-2022 Encounter for preprocedural cardiovascular examination [facility] [facility] Start: 08-11-2022 End: 08-15-2022 Evaluation and management of inpatient Gita Mischler Facility:[facility] Start: 08-11-2022 End: 08-15-2022 Encounter for preprocedural cardiovascular examination MD Tray Alfaro Work Phone: [facility] Start: 08-11-2022 End: 08-15-2022 Evaluation and management of inpatient MD Tray Alfaro Work Phone: [facility] Work Phone: Start: 08-11-2022 End: 08-14-2022 ambulatory THADDEUS DAUGHERTY Facility:[facility] Start: 08-02-2022 End: 08-02-[address] TRAY ALFARO . Facility:[facility] Start: 07-08-2022 End: 07-23-[address] TRAY ALFARO . Facility:[facility] Start: 06-01-2022 End: 06-01-2022 ambulatory Alicia Brit Other [employer] Other Start: 06-01-2022 Office outpatient vi sit 25 minutes Alicia Brit [facility] Start: 05-24-2022 End: 05-25-2022 ambulatory ALICIA BRIT Facility:[facility] Start: 02-03-2022 End: 02-04-[address] TRAY ALFARO . Facility:[facility] Start: 11-24-2021 End: 11-24-2021 ambulatory Alicia Brit Other [employer] Other Start: 11-24-2021 Office outpatient vi sit 25 minutes Alicia Brit [facility] Start: 10-26-2021 End: 10-26-2021 Patient encounter procedure Milton BRAUN [facility] Start: 05-26-2021 End: 05-26-2021 ambulatory Alicia Brit Other [employer] Other Start: 05-26-2021 Office outpatient vi sit 25 minutes Alicia Brit [facility] Procedures Date Procedure Procedure Detail Performing Clinician Start: 06-16-2023 Ultrasonography of b ilateral kidneys MD Tray Alfaro Work Phone: Start: 12-20-2022 Cystoscopic removal of ureteric stent Ni OLIVARES Start: 12-02-2022 Cystoscopy Ni BULL Start: 11-06-2022 PSA screening ALICIA QAD IR Comment on above: Performed By: #### T SH, LIPID, T4, FT3, CMP #### [facility] [address] [address] [address] Alicia Patel Start: 10-07-2022 Extracorporeal shock wave lithotripsy of calculus of kidney Ni OLIVARES Start: 08-21-2022 PSA screening ALICIA QAD IR Comment on above: Performed By: #### P SAD #### [facility] [address] [address] [address] Alicia Patel Start: 08-13-2022 Cystoscopy MD Tray Alfaro Work Phone: Start: 08-11-2022 Plain chest X-ray MD Iglesias Work Phone: Start: 08-01-2019 Transurethral prostatectomy Milton BRAUN Start: 07-04-2019 Biopsy of prostate Patr humaira KADE Start: 06-27-2019 cystoscopy, bilatera l, ureteroscopy, laser lithotripsy Milton BRAUN ear surgery Milton BRAUN ear surgery Ni OLIVARES Plan of Treatment Date Care Activity Detail Author Start: 08-15-2022 [facility] Start: 08-14-2022 Microbial culture of sputum [facility] Start: 08-14-2022 Aerobic Culture Aerobic Culture [facility] Start: 08-14-2022 Investigation of tra nsfusion reaction Gram Stain [facility] Start: 08-11-2022 Hospital admission [facility] Start: 08-11-2022 Referral to soft top installer [facility] Start: 08-11-2022 Referral to crop insurance claims adjuster [facility] Start: 08-11-2022 Referral to urologist [facility] CT Chest WO contrast [facility] Patient referral [facility] Work Phone: Renal function 2000 panel - Serum or Plasma [facility] Immunizations Immunization Date Immunization Notes Care Provider Fa cility 05-02-2023 pneumococcal 20-marco nt conjugate vaccine Ni OLIVARES [facility] 05-02-2023 tetanus toxoid, redu martha diphtheria toxoid, and acellular pertussis vaccine, adsorbed Ni OLIVARES [facility] 03-29-2022 SARS-CoV-2 (COVID-19 ) [id number] Ni OLIVARES [facility] 05-18-2021 SARS-CoV-2 (COVID-19 ) Ad26 vaccine, recombinant Ni OLIVARES [facility] 03-30-2021 influenza virus vaccine, unspecified formulation Ni OLIVARES [facility] 09-01-2020 SARS-CoV-2 (COVID-19 ) Ad26 vaccine, recombinant Ni OLIVARES [facility] 06-27-2020 SARS-CoV-2 (COVID-19 ) Ad26 vaccine, recombinant Milton BRAUN [facility] [place] 04-18-2020 influenza virus vaccine, unspecified formulation Ni OLIVARES [facility] 02-05-2020 zoster vaccine recombinant Ni OLIVARES [facility] 12-06-2019 zoster vaccine recombinant Ni OLIVARES [facility] 04-04-2019 influenza virus vaccine, unspecified formulation Milton BRAUN [facility] [place] 04-05-2017 influenza virus vaccine, unspecified formulation Ni OLIVARES [facility] 04-05-2017 pneumococcal conjuga te vaccine, 13 valent Ni OLIVARES [facility] 04-12-2016 influenza, unspecifi ed formulation Ni OLIVARES [facility] Payers Date Payer Category Payer Medicare [id number] 2022 Self-pay [id number] 1959 Private Health Insurance [id number] 2..[id number] 1959 Private Health Insurance [id number] 1942 Unknown [id number] 2.16.840.1.411693.3.579.2.356 1942 Unknown [id number] 2.16.840.1.475754.3.579.2.593 1942 Unknown [id number] 2.16.840.1.675649.3.579.2.593 1942 Unknown [id number] 2.16.840.1.176773.3.579.2.593 1942 Unknown [id number] 2.16.840.1.888005.3.579.2.593 1942 Unknown [id number] 2.16.840.1.255633.3.579.2.593 023 Unknown [id number] 2.16.840.1.000348.3.579.2.593 1942 Unknown [id number] 2.16.840.1.932453.3.579.2.593 1942 Unknown [id number] 2.16.840.1.904424.3.579.2.593 1942 Unknown [id number] 2.16.840.1.563027.3.579.2.593 1942 Unknown [id number] 2.16.840.1.858269.3.579.2.593 1942 Unknown [id number] 2.16.840.1.646167.3.579.2.593 1942 Unknown [id number] 2.16.840.1.328111.3.579.2.593 1942 Unknown [id number] 2.16.840.1.026278.3.579.2.593 1942 Unknown [id number] 2.16.840.1.676921.3.579.2.593 1942 Unknown [id number] 2.16.840.1.200319.3.579.2.593 1942 Unknown [id number] 2.16.840.1.301916.3.579.2.593 1942 Unknown [id number] 2.16.840.1.939890.3.579.2.593 1942 Unknown [id number] 2.16.840.1.758703.3.579.2.593 1942 Unknown [id number] 2.16.840.1.113148.3.579.2.593 1942 Unknown [id number] 2.16.840.1.846790.3.579.2.727 1942 Unknown [id number] 2.16.840.1.801973.3.579.2.727 1942 Unknown [id number] 2.16.840.1.453612.3.579.2. 1942 Unknown [id number] 2.16.840.1.700009.3.579.2.72 1942 Unknown [id number] 2.16.840.1.251631.3.579.2. 1942 Unknown [id number] 2.16.840.1.177983.3.579.2.72 1942 Unknown [id number] 2.16.840.1.227135.3.579.2. 1942 Unknown [id number] 2.16.840.1.364584.3.579.2. 1942 Unknown [id number] 2.16.840.1.440046.3.579.2.72 1942 Unknown [id number] 2.16.840.1.698674.3.579.2. 1942 Unknown [id number] 2.16.840.1.122559.3.579.2.72 Medicare [id number] 2.16.8 40.1.267537.19 Medicare [id number] 2.1 6.840.1.527673.19 Unknown [place] BC/BS [id number] Unknown [id number] 2.16.840.1.459435.3.579.2.531 Unknown [id number] 2.16.840.1.342584.3.579.2.531 Unknown [id number] 2.16.840.1.950906.3.579.2.531 Unknown [id number] 2.16.840.1.282553.3.579.2.531 Unknown [id number] 2.16.840.1.341851.3.579.2.531 Social History Date Type Detail Facility Start: 08-18-2020 End: 08-13-2022 Tobacco smoking status Ex-smoker (finding) [facility] [employer] Other Comment on above: quit in 1978 Sex Assigned At Male [facility] [employer] Other Start: 1940 Sex Assigned At Male [facility] Tobacco smoking status Never [facility] Comment on above: quit in 1978 Medical Equipment Procedure Code Equipment Code Equipment Origin al Text Equipment Identifier Dates Cystoscopy, with ureteral calculus manipulation and stent placement Polymeric ureteral stent ()[id number] FDA Start: 06-15-2019 Cystoscopy, with ureteral calculus manipulation and stent placement Polymeric ureteral stent ()[id number] FDA Start: 06-15-2019 Cystoscopy, with ureteral calculus manipulation and stent placement Polymeric ureteral stent ()[id number] FDA Start: 08-13-2022 Biopsy, prostate, with US guidance Polymeric ureteral stent ()[id number] FDA Start: 07-04-2019 CYSTOSCOPY URETEROSCOPY Ni OLIVARES MD 12/02/22 Unknown Ureter R {[id number] FDA Start: 12-02-2022 Goals Date Patient Goal Desired Activity /State Functional Status Date Assessment Result Facility 12-20-2022 Functional Status N/A [facility] 09-06-2022 Functional Status N/A [facility] 08-15-2022 Functional status [facility] at [facility] Work Phone: Mental Status Date Assessment Result Facility 08-15-2022 Cognitive function Cognitive Sta tus Patient at [facility] Work Phone: Clinical Notes 05-26-2021 to 06-14-2023 Note Date & Type Note Facility 06-14-2023 Evaluation note Encounter Date Diagnosis Assessment Notes May, Diabetes mellitus with chronic kidney disease (ICD-10 - E11.22) He has fgb-uxhtrxt-s ependent type 2 diabetes and currently takes glimepiride and Januvia. I have advised him to continue to follow with her PCP for DM management. Continue lisinopril due to the hypertension and renal protection. I would recommend that to reduce the dose of the Januvia due to his worsening renal function to 50 mg daily. He will benefit with SGLT2 inhibitors including Farxiga and Jardiance to slow down the progression of CKD. I have advised him to follow with the PCP or diabetic specialist to discuss this. May, Chronic kidney disease, stage III (moderate) (ICD-10 - N18.30) He has CKD likely due to the DM and HTN. His baseline serum Creatinine is 1.8-2.0 mg/dl. I have discussed with him the importance of good DM and HTN control to slow down the progression of disease. 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 He appears to be euvolemic. I have advised him to monitor his blood pressure at home and call office if blood pressure stays above 140/80 mmHg. May, Secondary hyperparathyroidism (ICD-10 - N25.81) MBD parameters including calcium, phosphorus, vitamin D and PTH are within the goal. May, Nephrolithiasis (ICD-10 - N20.0) I have advised him to adequately hydrate himself. advised him Continue to follow with Dr. Olivares May, Anemia of renal disease (ICD-10 - D63.1) Hemoglobin is within the goal. He has adequate iron stores and has normal B12 and folate level. [employer] Other [phone] Hospital Discharge instructions Patient Education 06/14/2023 09:44:12 Dietary Guidelines to Help Prevent Kidney Stones Dietary Guidelines to Help Prevent Kidney Stones Kidney stones are deposits of minerals and salts that form inside your kidneys. Your risk of developing kidney stones may be greater depending on your diet, your lifestyle, the medicines you take, and whether you have certain medical conditions. Most people can lower their risks of developing kidney stones by following these dietary guidelines. Your dietitian may give you more specific instructions depending on your overall health and the type of kidney stones you tend to develop. What are tips for following this plan? Reading food labels Choose foods with no salt added or low-salt labels. Limit your salt (sodium) intake to less than 1,500 mg a day. Choose foods with calcium for each meal and snack. Try to eat about 300 mg of calcium at each meal.Foods that contain 200 500 mg of calcium a serving include: ?8 oz (237 mL) of milk, fwintnr-hajcawpmqhwn-jiwkz milk, and calcium- fortifiedfruit juice. Calcium-fortified means that calcium has been added to these drinks. ?8 oz (237 mL) of kefir, yogurt, and soy yogurt. ?4 oz (114 g) of tofu. ?1 oz (28 g) of cheese. ?1 cup (150 g) of dried figs. ?1 cup (91 g) of cooked broccoli. ?One 3 oz (85 g) can of sardines or mackerel. Most people need 1,000 1,500 mg of calcium a day. Talk to your dietitian about how much calcium is recommended for you. Shopping Buy plenty of fresh fruits and vegetables. Most people do not need to avoid fruits and vegetables, even if these foods contain nutrients that may contribute to kidney stones. When shopping for convenience foods, choose: ?Whole pieces of fruit. ?Pre-made salads with dressing on the side. ?Low-fat fruit and yogurt smoothies. Avoid buying frozen meals or prepared deli foods. These can be high in sodium. Look for foods with live cultures, such as yogurt and kefir. Choose high-fiber grains, such as whole-wheat breads, oat bran, and wheat cereals. Cooking Do not add salt to food when cooking. Place a salt shaker on the table and allow each person to addtheir own salt to taste. Use vegetable protein, such as beans, textured vegetable protein (TVP), or tofu, instead of meat inpasta, casseroles, and soups. Meal planning Eat less salt, if told by your dietitian. To do this: ?Avoid eating processed or pre-made food. ?Avoid eating fast food. Eat less animal protein, including cheese, meat, poultry, or fish, if told by your dietitian. To dothis: ?Limit the number of times you have meat, poultry, fish, or cheese each week. Eat a diet free of meat at least 2 days a week. ?Eat only one serving each day of meat, poultry, fish, or seafood. ?When you prepare animal proteins, cut pieces into small portion sizes. For most meat and fish, oneserving is about the size of the palm of your hand. Eat at least five servings of fresh fruits and vegetables each day. To do this: ?Keep fruits and vegetables on hand for snacks. ?Eat one piece of fruit or a handful of berries with breakfast. ?Have a salad and fruit at lunch. ?Have two kinds of vegetables at dinner. You may be told to limit foods that are high in a substance called oxalate. These include: ?Spinach (cooked), rhubarb, beets, sweet potatoes, and Armenian chard. ?Peanuts. ?Potato chips, british fries, and baked potatoes with skin on. ?Nuts and nut products. ?Chocolate. If you regularly take a diuretic medicine, make sure to eat at least 1 or 2 servings of fruits or vegetables that are high in potassium each day. These include: ?Avocado. ?Banana. ?[place], prune, carrot, or tomato juice. ?Baked potato. ?Cabbage. ?Beans and split peas. Lifestyle Drink enough fluid to keep your urine pale yellow. This is the most important thing you can do. Spread your fluid intake throughout the day. If you drink alcohol: ?Limit how much you have to: ?0 1 drink a day for women who are not . ?0 2 drinks a day for men. ?Know how much alcohol is in your drink. In the [place] one drink equals one 12 oz bottle of beer (355 mL), one 5 oz glass of wine (148 mL), or one 1 oz glass of hard liquor (44 mL). Lose weight if told by your health care provider. Work with your dietitian to find an eating plan and weight loss strategies that work best for you. General information Talk to your health care provider and dietitian about taking daily supplements. Depending on your health and the cause of your kidney stones, you may be told: ?Do not take high-dose supplements of vitamin C (1,000 mg a day or more). ?To take a calcium supplement. ?To take a daily probiotic supplement. ?To take other supplements such as magnesium, fish oil, or vitamin B6. Take xsji-cfy-jhtnhyi and prescription medicines only as told by your health care provider. These include supplements. What foods should I limit? Limit your intake of the following foods, or eat them as told by your dietitian. Vegetables Spinach. Rhubarb. Beets. Canned vegetables. Pickles. Olives. Baked potatoes with skin. Grains Wheat bran. Baked goods. Salted crackers. Cereals high in sugar. Meats and other proteins Nuts. Nut butters. Large portions of meat, poultry, or fish. Salted, precooked, or cured meats, such as sausages, meat loaves, and hot dogs. Dairy Cheeses. Beverages Regular soft drinks. Regular vegetable juice. Seasonings and condiments Seasoning blends with salt. Salad dressings. Soy sauce. Ketchup. Barbecue sauce. Other foods Canned soups. Canned pasta sauce. Casseroles. Pizza. Lasagna. Frozen meals. Potato chips. Nigerien fries. The items listed above may not be a complete list of foods and beverages you should limit. Contact a dietitian for more information. What foods should I avoid? Talk to your dietitian about specific foods you should avoid based on the type of kidney stones youhave and your overall health. Fruits Grapefruit. The item listed above may not be a complete list of foods and beverages you should avoid. Contact adietitian for more information. Summary Kidney stones are deposits of minerals and salts that form inside your kidneys. You can lower your risk of kidney stones by making changes to your diet. The most important thing you can do is drink enough fluid. Drink enough fluid to keep your urine pale yellow. Talk to your dietitian about how much calcium you should have each day, and eat less salt and animal protein as told by your dietitian. This information is not intended to replace advice given to you by your health care provider. Make sure you discuss any questions you have with your health care provider. Document Revised: 09/23/2022 Document Reviewed: 09/23/2022 [employer] Patient Education 2022 [employer]. Follow Up Care 02/04/2023 14:47:08 With:CARLOS OLIVEROS, Ni Garcia, URL Address: [address] [place] [address] [place], [place] [id number]- When: Unknown [facility] [place] [id number] [facility] - [facility] Subjective Victorino Smyth is a 82 y.o. year old male patient being seen for 3 mo follow up CAD, HLD, and hypertension. Says his chest pain is improving, but his SOB with exertion is worsening. Patient Active Problem List Diagnosis Benign prostatic hyperplasia Chest pain Coronary atherosclerosis Essential hypertension Hyperlipidemia 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CMS/HCC) Type 2 diabetes mellitus without complication (CMS/HCC) Pre-operative cardiovascular examination Family History Problem Relation Name Age of Onset No Known Problems Mother No Known Problems Father Social History Tobacco Use Smoking status: Never Smokeless tobacco: Never Substance Use Topics Alcohol use: Yes Comment: humberto Gleason is seen for follow up. He is a 82 yo man with prior history of CAD and drug eluting stenting of LAD in March of 2013, and then developed acute OH related to ISR of the LAD stent on 09/28/2016 and underwent emergent Promus JOSE RAMON stent to the LAD at [facility], was on Brilinta but currently on aspirin only. At that time he had mild RCA and Circumflex disease. He has hypertension and hyperlipidemia on therapy. Previously I added amlodipine 10 mg daily for blood pressure control. He was evaluated in cardiology clinic on 10/15/2020 and then on 11/10/2020 due to shortness of breath. An echocardiogram and a stress test were nonrevealing. PFTs were performed. Those pointed to possible underlying lung disease. he was evaluated in cardiology clinic in October 2022 at that time his chest pain had improved after addition of Ranexa and increasing Imdur dosage. He recently has been treated for renal stones and underwent a stent procedure. The stent was removed. Today he brings with him his blood pressure log. Which shows systolic blood pressure around 1 30-1 40, diastolic blood pressure around 60-70, heart rate 60 to 70 bpm. He has no chest pain. He says this has improved significantly. He has not used s/l nitro. He continues to have shortness of breath with exertion relieved by rest. He sees Dr Doty from pulmonary. He has no claudication. Review of Systems Cardiovascular: Positive for chest pain (improving) and dyspnea on exertion (worsening). Musculoskeletal: Positive for arthritis, back pain and joint pain. All other systems reviewed and are negative. Objective Visit Vitals BP 116/61 (BP Location: Left arm, Patient Position: Sitting) Pulse 63 Ht 1.753 m (5' 9 ) Wt 113 kg (250 lb) SpO2 95% BMI 36.92 kg/m??? Smoking Status Never BSA 2.35 m??? Physical Exam Constitutional: Appearance: He is well-developed. He is obese. He is not ill-appearing. HENT: Head: Normocephalic and atraumatic. Nose: Nose normal. Eyes: General: No scleral icterus. Pupils: Pupils are equal, round, and reactive to light. Neck: Thyroid: No thyromegaly. Vascular: No JVD. Cardiovascular: Rate and Rhythm: Normal rate and regular rhythm. Pulses: Radial pulses are 2+ on the right side and 2+ on the left side. Heart sounds: Normal heart sounds. No murmur heard. No friction rub. No gallop. Pulmonary: Effort: Pulmonary effort is normal. No respiratory distress. Breath sounds: Normal breath sounds. No wheezing or rales. Chest: Chest wall: No tenderness. Abdominal: General: Bowel sounds are normal. There is no distension. Palpations: Abdomen is soft. Tenderness: There is no abdominal tenderness. Musculoskeletal: General: No swelling. Cervical back: Neck supple. Skin: General: Skin is warm and dry. Neurological: General: No focal deficit present. Mental Status: He is alert and oriented to person, place, and time. Psychiatric: Mood and Affect: Mood normal. Behavior: Behavior is cooperative. Judgment: Judgment normal. Allergies Allergies Allergen Reactions Ciprofloxacin Itching Penicillins Other Medications Current Outpatient Medications: albuterol 90 mcg/actuation inhaler, Ventolin HFA 90 mcg/actuation aerosol inhaler inhale 2 puffs by mouth and INTO THE LUNGS every 4 hours if needed for shortness of breath, Disp: , Rfl: amLODIPine (Norvasc) 10 mg tablet, Take 1 tablet (10 mg) by mouth in the morning., Disp: 90 tablet, Rfl: 3 aspirin 81 mg EC tablet, in the morning., Disp: , Rfl: atorvastatin (Lipitor) 80 mg tablet, Take 1 tablet (80 mg) by mouth at bedtime., Disp: 90 tablet, Rfl: 3 calcium citrate-vitamin D3 (Citracal+D) 315 mg-5 mcg (200 unit) tablet, Take 1 tablet by mouth in the morning., Disp: , Rfl: glimepiride (Amaryl) 4 mg tablet, Take 4 mg by mouth in the morning and at bedtime., Disp: , Rfl: isosorbide mononitrate ER (Imdur) 60 mg 24 hr tablet, Take 2 tablets (120 mg) by mouth in the morning. Do not crush or chew., Disp: 180 tablet, Rfl: 3 levothyroxine (Synthroid, Levoxyl) 50 mcg tablet, levothyroxine 50 mcg tablet take 1 tablet by mouth once daily, Disp: , Rfl: liothyronine (more content not included)...[facility] 12-21-2022 [id number]06-26-2023 NoteCystoscopy with Stent Removal ? Voiding after the procedure: there may be some pain, burning, urgency, frequency and blood tingedurine following the procedure. These symptoms usually resolve within 2-5 days. Drink the amount of fluid it takes to keep the urine pink to yellow or clear in color. Drinking enough water and fluids will help to ease any discomfort after your procedure. ? If you are having problems that seem out of the ordinary, please call. ? If unable to contact your physician and you feel it is an emergency, go to the nearest emergency room or call 911 ? Diet ? you may resume your normal diet. ? Activity ? you may resume your normal activities ? Call if you have a fever over 100 degrees.[facility] 12-20-2022 Hospital Discharge instructions Patient Education 12/20/2022 16:27:08 [facility] - Cystoscopy with Stent Removal Discharge Instructions (Custom) Cystoscopy with Stent Removal Voiding after the procedure: there may be some pain, burning, urgency, frequency and blood tinged urine following the procedure. These symptoms usually resolve within 2-5 days. Drink the amount of fluid it takes to keep the urine pink to yellow or clear in color. Drinking enough water and fluids will help to ease any discomfort after your procedure. If you are having problems that seem out of the ordinary, please call. If unable to contact your physician and you feel it is an emergency, go to the nearest emergency room or call 911 Diet you may resume your normal diet. Activity you may resume your normal activities Call if you have a fever over 100 degrees. Follow Up Care 12/07/2022 13:42:13 With:Ni CARLOS Address: [facility] [place] [id number] [facility] (1) When:6 months Comments:Call for followup appointment. When you call for your appointment, please ask my office to make arrangements for an abdominal x-ray to be obtained about 1 week prior to your appointment in 6 months.Push the fluids to keep the urine clear.Should you decide to proceed with a repeat 24-hour urine collection and blood work, please notify my office and we can make those arrangements as well.Have a great day. 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 I have advised him to continue to follow with her PCP for DM management. Continue lisinopril due to the hypertension and renal protection. I would recommend that to reduce the dose of the Januvia due to his worsening renal function to 50 mg daily. He will benefit with SGLT2 inhibitors including Farxiga and Jardiance to slow down the progression of CKD. I have advised him to follow with the PCP or diabetic specialist to discuss this. Nov, Chronic kidney disea se, stage III (moderate) (ICD-10 - N18.30) He has CKD likely due to the DM and HTN. His serum creatinine is 2.5 mg/dL above baseline serum Creatinine is 1.9-2.0 mg/dl. I have discussed with him the importance of good DM and HTN control to slow down the progression of disease. 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 He appears to be euvolemic. I have advised him to monitor his blood pressure at home and call office if blood pressure stays above 140/80 mmHg. Nov, Secondary hyperparathyroidism (ICD-10 - N25.81) MBD parameters including calcium, phosphorus, vitamin D and PTH are within the goal. Nov, Nephrolithiasis (ICD -10 - N20.0) I have advised him to adequately hydrate himself. advised him Continue to follow with Dr. Olivares Nov, Anemia of renal dise ase (ICD-10 - D63.1) Hemoglobin is within the goal. He has adequate iron stores and has normal B12 and folate level. [employer] Other [id number] NoteRCRI- 2???points Class III Risk 10.1???% 30-day risk of , OH, or cardiac arrest EKG at last visit SR with 1st Degree AV block- no acute changes. From a cardiology perspective pt may proceed with planned urological procedure, he is a moderate risk for a low-moderate risk procedure. May hold ASA for 5-7 days prior to surgery and please resume all meds post op and monitor hemodynamics carefully and prevent any major fluid shifts. [facility]Un[facility]05-24-2023 NoteCoronary artery disease is stable, angina much improved s/p increased imdur dose and adding ranexa. Continue GDMTUnAdena Regional Medical Center05-24-2023 NotePatient here for 1 mo follow up echo. Still needs cleared for urological procedure, scheduled 12/02/2022. Says he's see nephrology soon also. Amlodipine and isosorbide were both increased at last visit. Ranexa was added. Says his chest pain has eased up a lot. Had ECG 10/14/22. Review of Systems Cardiovascular: Positive for dyspnea on exertion (improving) and leg swelling (improving). Musculoskeletal: Positive for arthritis, back pain and joint pain. All other systems reviewed and are negative.[facility] 11-17-2022 NoteUTP CARDIOLOGY PROGRESS NOTE HPI: Victorino Smyth is a 82 y.o. male here for angina, CAD, pre surgery evaluation States chest pain/angina is much better since last vist with increased imdur and addition of ranexa. Denied any activity limiting symptoms, states he has been able to do all activities at home without chest pain. States the sharp mid lt chest pain has resolved. Denied SOB, Orthopnea, palpitations. Pt planned for urological surgery for Cystoscopy, lithotripsy, renal stent- ect... Review of Systems Constitutional: Negative. Respiratory: Negative. Cardiovascular: Negative. Neurological: Negative. All other systems reviewed and are negative. Visit Vitals BP 126/60 (BP Location: Left arm, Patient Position: Sitting) Pulse 77 Ht 1.753 m (5' 9 ) Wt 115 kg (253 lb) SpO2 95% BMI 37.36 kg/m??? Smoking Status Never BSA 2.37 m??? Allergies Allergen Reactions Ciprofloxacin Itching Penicillins Other Medications: Current Outpatient Medications on File Prior to Visit Medication Sig Dispense Refill albuterol 90 mcg/actuation inhaler Ventolin HFA 90 mcg/actuation aerosol inhaler inhale 2 puffs by mouth and INTO THE LUNGS every 4 hours if needed for shortness of breath amLODIPine (Norvasc) 10 mg tablet Take 1 tablet (10 mg) by mouth in the morning. 90 tablet 3 aspirin 81 mg EC tablet in the morning. atorvastatin (Lipitor) 80 mg tablet at bedtime. glimepiride (Amaryl) 4 mg tablet glimepiride 4 mg tablet isosorbide mononitrate ER (Imdur) 60 mg 24 hr tablet Take 2 tablets (120 mg) by mouth in the morning. Do not crush or chew. 180 tablet 3 lisinopril 20 mg tablet Take 20 mg by mouth in the morning. metoprolol tartrate (Lopressor) 50 mg tablet TAKE 1 TABLET TWICE A DAY 180 tablet 3 nitroglycerin (Nitrostat) 0.4 mg SL tablet nitroglycerin 0.4 mg sublingual tablet ranolazine (Ranexa) 500 mg 12 hr tablet Take 1 tablet (500 mg) by mouth in the morning and at bedtime. Do not crush, chew, or split. 180 tablet 3 SITagliptin phosphate (Januvia) 100 mg tablet Januvia 100 mg tablet tiotropium (Spiriva Respimat) 2.5 mcg/actuation inhaler Spiriva Respimat 2.5 mcg/actuation solution for inhalation levothyroxine (Synthroid, Levoxyl) 50 mcg tablet levothyroxine 50 mcg tablet take 1 tablet by mouth once daily liothyronine (Cytomel) 5 mcg tablet Take 5 mcg by mouth in the morning. [DISCONTINUED] amLODIPine (Norvasc) 10 mg tablet Take 5 mg by mouth in the morning. No current facility-administered medications on file prior to visit. Physical Exam: Constitutional: Appearance: Normal appearance. Without apparent distress, obese, chronically ill HENT: Head: Normocephalic and atraumatic. Nose: Nose normal. Mouth/Throat: Mouth: Mucous membranes are moist. Eyes: Extraocular Movements: Extraocular movements intact. Conjunctiva/sclera: Conjunctivae normal. Neck: Vascular: No JVD. Cardiovascular: Rate and Rhythm: Normal rate and regular rhythm. Pulses: Dorsalis pedis pulses are 3 on the right side and 3on the left side. Posterior tibial pulses are 3 on the right side and 3 on the left side. Heart sounds: Normal heart sounds, S1 normal and S2 normal. Pulmonary: Effort: Pulmonary effort is normal. Breath sounds: Normal breath sounds. Abdominal: General: Bowel sounds are normal. Palpations: Abdomen is soft. Musculoskeletal: General: Normal range of motion. Cervical back: Normal range of motion. Right lower leg: No edema. Left lower leg: No edema. Skin: General: Skin is warm and dry. Capillary Refill: Capillary refill takes less than 2 seconds. Neurological: General: No focal deficit present. Mental Status: alert and oriented to person, place, and time. Psychiatric: Mood and Affect: Mood normal. Behavior: Behavior normal. Thought Content: Thought content normal. Judgment: Judgment normal. Labs: 11/06/22 Renal function elevated- BUN 32 CR 2.41, K+ 4.6 normal CBC stable Liver function normal Lipid level well controlled- CHOL 107 LDL- 58 Last lab values have been reviewed CV Testin10/26/22 echo No echocardiogram results found for the past 12 months Assessment/Plan: Hyperlipidemia Continue statin- lipid level well controlled Essential hypertension Hypertension is well controlled today 126/60 with increased norvasc and imdur doses Continue norvasc, lisinopril, imdur, Renal function being monitored by nephrology Coronary atherosclerosis Coronary artery disease is stable, angina much improved s/p increased imdur dose and adding ranexa. Continue GDMT Pre-operative cardiovascular examination RCRI- 2 points Class III Risk 10.1 % 30-day risk of , OH, or cardiac arrest EKG at last visit SR with 1st Degree AV block- no acute changes. From a cardiology perspective pt may proceed with planned urological procedure, he is a moderate risk for a low-moderate risk procedure. May hold ASA for 5-7 days prior (more content not included)...[facility] 11-17-2022 NoteHypertension is well controlled today 126/60 with increased norvasc and imdur doses Continue norvasc, lisinopril, imdur, Renal function being monitored by nephrologyUnAdena [facility] 11-17-2022 NoteContinue statin- lipid level well controlledUnAdena Regional Medical Center05-24-2023 [id number]:127 [facility]04-20-2023 NoteContinue statinUnAdena Regional Medical Center04-20-2023 NoteIncrease imdur to 120 mg and start ranexa as per Dr Huynh's recommendationsUnAdena Regional Medical Center04-20-2023 Note Reviewed concerning symptoms and recent labs including elevated renal function with Dr Huynh- interventionalist- will increase amlodipine to 10 mg daily for better HTN management, increase Imdur to 120 mg daily and add Ranexa 500 mg bid for angina. Continue all GDMT- ASA, lipitor, metoprolol and lisinopril. RTC 1 month or earlier if needed. D/W pt to call 911 for worsening chest pain, angina, shortness of breath or further concerns.[facility]04-20-2023 NoteUTP CARDIOLOGY PROGRESS NOTE HPI: Victorino Smyth is a 82 y.o. male here for Chest Pain, Coronary Artery Disease, and Hypertension Patient here c/o chest tightness/burning with exertion the past few months. Says it feels similar to 2017 when he had an OH. Has been becoming more intense lately. States when he walks > 300 feet he has and sternal burning and APONTE the resolves with stopping and resting. He also admits angina of mid sternal without radiation- pain that occurs at rest and has been happening more often over the last 1-2 months. Says about [address] Alfaro cut his amlodipine dose down to 5mg for low BP's (120-130's systolic per patient). Says now his BP is around 160's systolic, but will come down to the 140's when he re-checks it after a few minutes. Jul was in pt with KELSEA on CKD, had 2 treatments of Hemodialysis and was able to remove about 11 pounds of water weight. Dr Timmons- nephrology- seeing November 29- CKD, Urology - dr Braun for kidney stones- seeing tomorrow. Recent lithotripsy for Nephrolithiasis. Review of Systems Cardiovascular: Positive for chest pain, dyspnea on exertion and leg swelling. Musculoskeletal: Positive for arthritis, back pain and joint pain. All other systems reviewed and are negative. Previous HPI per Dr Huynh 01/12/21 He is a 80 yo man with prior history of CAD and drug eluting stenting of LAD in March of 2013, and then developed acute OH related to ISR of the LAD stent on 09/28/2016 and underwent emergent Promus JOSE RAMON stent to the LAD at [facility], was on Brilinta but currently on aspirin only. At that time he had mild RCA and Circumflex disease. He has hypertension and hyperlipidemia on therapy. Previously I added amlodipine 10 mg daily for blood pressure control. He was evaluated in cardiology clinic on 10/15/2020 and then on 11/10/2020 due to shortness of breath. An echocardiogram and a stress test were nonrevealing. PFTs were performed. Those pointed to possible underlying lung disease. Lipids 10/16/2020: Chol 121, HDL 32, trig 107, LDL 87 Blood testing 12/01/2020: Hemoglobin 14.1, potassium 4.2, BUN 20, creatinine 1.58. Echo 10/31/2020: EF 55%, trace MR, normal right sided pressures Nuclear medicine stress test 10/29/2020: 1. Large fixed defect of the inferior wall, RCA distribution no significant redistribution to suggest reversible ischemia 2. Nondiagnostic exercise test due to EKG changes (T-wave inversions in leads III and aVF) PFTs 12/02/2020: Spirometry trends toward mild obstruction, reduced RV and TLC with mild diffusion impairment. This pattern can be seen in but not restricted to cardiopulmonary vascular disorders, early interstitial lung disease and early emphysema. Prior testing: Blood testing 05/20/2020: BUN 17, creatinine 1.52, potassium 4.6. stress test 04/12/2019: no ischemia, fixed inferior defect. EF 60%. stress test from 08/07/2018: no ischemia, large inferior/inferoapical infarct. lipid profile from 04/05/2019, total cholesterol 102, HDL 35, triglycerides 83, LDL 50.4 01/2017: LDL 47; TG 92. 02/2017: Cr 0.97. ECG 07/27/2018: normal sinus rhythm Visit Vitals BP 164/76 (BP Location: Left arm, Patient Position: Sitting) Pulse 71 Ht 1.753 m (5' 9 ) Wt 116 kg (255 lb) SpO2 98% BMI 37.66 kg/m??? Smoking Status Never BSA 2.38 m??? Allergies Allergen Reactions Ciprofloxacin Itching Penicillins Other Medications: Current Outpatient Medications on File Prior to Visit Medication Sig Dispense Refill albuterol 90 mcg/actuation inhaler Ventolin HFA 90 mcg/actuation aerosol inhaler inhale 2 puffs by mouth and INTO THE LUNGS every 4 hours if needed for shortness of breath amLODIPine (Norvasc) 10 mg tablet Take 5 mg by mouth in the morning. aspirin 81 mg EC tablet in the morning. atorvastatin (Lipitor) 80 mg tablet at bedtime. glimepiride (Amaryl) 4 mg tablet glimepiride 4 mg tablet levothyroxine (Synthroid, Levoxyl) 50 mcg tablet levothyroxine 50 mcg tablet take 1 tablet by mouth once daily liothyronine (Cytomel) 5 mcg tablet Take 5 mcg by mouth in the morning. lisinopril 20 mg tablet Take 20 mg by mouth in the morning. metoprolol tartrate (Lopressor) 50 mg tablet TAKE 1 TABLET TWICE A DAY 180 tablet 3 nitroglycerin (Nitrostat) 0.4 mg SL tablet nitroglycerin 0.4 mg sublingual tablet SITagliptin phosphate (Januvia) 100 mg tablet Januvia 100 mg tablet tiotropium (Spiriva Respimat) 2.5 mcg/actuation inhaler Spiriva Respimat 2.5 mcg/actuation solution for inhalation [DISCONTINUED] diclofenac (Voltaren) 75 mg EC tablet diclofenac sodium 75 mg tablet,delayed release take 1 tablet by mouth twice a day [DISCONTINUED] isosorbide mononitrate ER (Imdur) 60 mg 24 hr tablet isosorbide mononitrate ER 60 mg tablet,extended release 24 hr [DISCONTINUED] ticagrelor (Brilinta) 90 mg tablet Brilinta 90 mg tablet No current facility-administered medications on file p (more content not included)...[facility]04-20-2023 NotePatient here c/o chest tightness with exertion the past few months. Says it feels similar to 2017 when he had an OH. Has been becoming more intense lately. Says about [address] Alfaro cut his amlodipine dose down to 5mg for low BP's (120-130's systolic per patient). Says now his BP is around 160's systolic, but will come down to the 140's when he re-checks it after a few minutes. Review of Systems Cardiovascular: Positive for chest pain, dyspnea on exertion and leg swelling. Musculoskeletal: Positive for arthritis, back pain and joint pain. All other systems reviewed and are negative.[facility] 10-07-2022 Hospital Discharge instructions Patient Education 10/07/2022 16:31:27 Post Op Patient Instructions - FT (CUSTOM) 10/07/2022 15:43:16 Lithotripsy, Care After Lithotripsy, Care After This sheet gives you information about how to care for yourself after your procedure. Your health care provider may also give you more specific instructions. If you have problems or questions, contact your health care provider. What can I expect after the procedure? After the procedure, it is common to have: Some blood in your urine. This should only last for a few days. Soreness in your back, sides, or upper abdomen for a few days. Blotches or bruises on your back where the pressure wave entered the skin. Pain, discomfort, or nausea when pieces (fragments) of the kidney stone move through the tube that carries urine from the kidney to the bladder (ureter). Stone fragments may pass soon after the procedure, but they may continue to pass for up to 4 8 weeks. ?If you have severe pain or nausea, contact your health care provider. This may be caused by a large stone that was not broken up, and this may mean that you need more treatment. Some pain or discomfort during urination. Some pain or discomfort in the lower abdomen or (in men) at the base of the penis. Follow these instructions at home: Medicines Take tvom-ycx-vhfrium and prescription medicines only as told by your health care provider. If you were prescribed an antibiotic medicine, take it as told by your health care provider. Do notstop taking the antibiotic even if you start to feel better. Do not drive for 24 hours if you were given a medicine to help you relax (sedative). Do not drive or use heavy machinery while taking prescription pain medicine. Eating and drinking Drink enough water and fluids to keep your urine clear or pale yellow. This helps any remaining pieces of the stone to pass. It can also help prevent new stones from forming. Eat plenty of fresh fruits and vegetables. Follow instructions from your health care provider about eating and drinking restrictions. You may be instructed: ?To reduce how much salt (sodium) you eat or drink. Check ingredients and nutrition facts on packaged foods and beverages. ?To reduce how much meat you eat. Eat the recommended amount of calcium for your age and gender. Ask your health care provider how much calcium you should have. General instructions Get plenty of rest. Most people can resume normal activities 1 2 days after the procedure. Ask your health care provider what activities are safe for you. Your health care provider may direct you to lie in a certain position (postural drainage) and tap firmly (percuss) over your kidney area to help stone fragments pass. Follow instructions as told by your health care provider. If directed, strain all urine through the strainer that was provided by your health care provider. ?Keep all fragments for your health care provider to see. Any stones that are found may be sent to a medical lab for examination. The stone may be as small as a grain of salt. Keep all follow-up visits as told by your health care provider. This is important. Contact a health care provider if: You have pain that is severe or does not get better with medicine. You have nausea that is severe or does not go away. You have blood in your urine longer than your health care provider told you to expect. You have more blood in your urine. You have pain during urination that does not go away. You urinate more frequently than usual and this does not go away. You develop a rash or any other possible signs of an allergic reaction. Get help right away if: You have severe pain in your back, sides, or upper abdomen. You have severe pain while urinating. Your urine is very dark red. You have blood in your stool (feces). You cannot pass any urine at all. You feel a strong urge to urinate after emptying your bladder. You have a fever or chills. You develop shortness of breath, difficulty breathing, or chest pain. You have severe nausea that leads to persistent vomiting. You faint. Summary After this procedure, it is common to have some pain, discomfort, or nausea when pieces (fragments)of the kidney stone move through the tube that carries urine from the kidney to the bladder (ureter). If this pain or nausea is severe, however, you should contact your health care provider. Most people can resume normal activities 1 2 days after the procedure. Ask your health care provider what activities are safe for you. Drink enough water and fluids to keep your urine clear or pale yellow. This helps any remaining pieces of the stone to pass, and it can help prevent new stones from forming. If directed, strain your urine and keep all fragments for your health care provider to see. Fragments or stones may be as small as a grain of salt. Get help right away if you have severe pain in your back, sides, or upper abdomen or have severe pain while urinating. This information is not intended to replace advice given to you by your health care provider. Make sure you discuss any questions you have with your health care provider. Document Released: 07/02/2008 Document Revised: 09/24/2019 Document Reviewed: 05/04/2017 [employer] Patient Education 2020 [employer] Follow Up Care 09/06/2022 10:38:13 With:Ni OLIVARES Address: [address] [place], [place] [id number] Business (1) When: Unknown Comments:We were able to find the stone under x-ray and perform the external stone blasting procedure.Pleasecall my office so we can arrange for a kidney ultrasound study within the next couple weeks or so. Depending on the findings the next step will be either to remove the stent or, more likely, would herve go up into the kidney now to remove the remaining fragments. The possibility of laser ablation may need to be considered.Take it easy for the next forty-eight hours.Also, please contact Dr. Alfaro regarding your cardiac symptoms. Anesthesia requested that you have further evaluation prior to considering any other anesthesia procedures. [facility]04-13-2023 Evaluation + Plan noteExtracted from: Title:KALEN post op Author:Timothy Pittman MD Date:10/07/22 Plan Transfer/Discharge: Transfer/Discharge Discharge when meets criteria ( To home ). Extracted from: Title:KALEN GA Author:Timothy Pittman MD Date:10/07/22 Plan [place] [employer] (ASA) physical status classification: Class III. Anesthetic Preoperative Plan: Anesthesia General. Future Appointments Appointment Date:10/29/2022 08:45:00 AM Scheduled Provider:Milton BRAUN MD Location:[facility] Appointment Type:URO Office Visit [facility]03-23-2023 Note [id number]:127[facility] 09-15-2022 Evaluation note* Encounter Date Diagnosis Assessment Notes Treatment Notes Treatment Clinical Notes Aug, Diabetes mellitus wi th chronic kidney disease (ICD-10 - E11.22) He has joz-hhbwkdt-nglb ndent type 2 diabetes and currently takes glimepiride and Januvia. I have advised him to continue to follow with her PCP for DM management. Continue lisinopril due to the hypertension and renal protection. He will benefit with SGLT2 inhibitors including Farxiga and Jardiance to slow down the progression of CKD. I have advised him to follow with the PCP ordered diabetic specialist to discuss this. Due to the risk of hypotension I will hold the Kerendia for now. Aug, Chronic kidney disea se, stage III (moderate) (ICD-10 - N18.30) He has CKD likely due to the DM and HTN. His baseline serum Creatinine is 1.9-2.0 mg/dl. I have discussed with him the importance of good DM and HTN control to slow down the progression of disease. I have explained the potential risk of the worsening renal function due to the diclofenac. We will monitor renal function and he would like to continue it. 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 He appears to be euvolemic. I have advised him to monitor his blood pressure at home and call office if blood pressure stays above 140/80 mmHg. Aug, Secondary hyperparathyroidism (ICD-10 - N25.81) MBD parameters including calcium, phosphorus, vitamin D and PTH are within the goal. Aug, Nephrolithiasis (ICD -10 - N20.0) I have advised him to adequately hydrate himself. [employer] Other 03-13-2023 Hospital Discharge instructions Patient Education 09/06/2022 10:27:16 Kidney Stones, Owyg-yt-Cnlt Kidney Stones Kidney stones are rock-like masses that form inside of the kidneys. Kidneys are organs that make pee (urine). A kidney stone may move into other parts of the urinary tract, including: The tubes that connect the kidneys to the bladder (ureters). The bladder. The tube that carries urine out of the body (urethra). Kidney stones can cause very bad pain and can block the flow of pee. The stone usually leaves your body (passes) through your pee. You may need to have a doctor take out the stone. What are the causes? Kidney stones may be caused by: A condition in which certain glands make too much parathyroid hormone (primary hyperparathyroidism). A buildup of a type of crystals in the bladder made of a chemical called uric acid. The body makes uric acid when you eat certain foods. Narrowing (stricture) of one or both of the ureters. A kidney blockage that you were born with. Past surgery on the kidney or the ureters, such as gastric bypass surgery. What increases the risk? You are more likely to develop this condition if: You have had a kidney stone in the past. You have a family history of kidney stones. You do not drink enough water. You eat a diet that is high in protein, salt (sodium), or sugar. You are overweight or very overweight (obese). What are the signs or symptoms? Symptoms of a kidney stone may include: Pain in the side of the belly, right below the ribs (flank pain). Pain usually spreads (radiates) to the groin. Needing to pee often or right away (urgently). Pain when going pee (urinating). Blood in your pee (hematuria). Feeling like you may vomit (nauseous). Vomiting. Fever and chills. How is this treated? Treatment depends on the size, location, and makeup of the kidney stones. The stones will often pass out of the body through peeing. You may need to: Drink more fluid to help pass the stone. In some cases, you may be given fluids through an IV tube put into one of your veins at the hospital. Take medicine for pain. Make changes in your diet to help keep kidney stones from coming back. Sometimes, medical procedures are needed to remove a kidney stone. This may involve: A procedure to break up kidney stones using a beam of light (laser) or shock waves. Surgery to remove the kidney stones. Follow these instructions at home: Medicines Take iqnw-kel-rhvfajm and prescription medicines only as told by your doctor. Ask your doctor if the medicine prescribed to you requires you to avoid driving or using heavy machinery. Eating and drinking Drink enough fluid to keep your pee pale yellow. You may be told to drink at least 8 10 glasses of water each day. This will help you pass the stone. If told by your doctor, change your diet. This may include: ?Limiting how much salt you eat. ?Eating more fruits and vegetables. ?Limiting how much meat, poultry, fish, and eggs you eat. Follow instructions from your doctor about eating or drinking restrictions. General instructions Collect pee samples as told by your doctor. You may need to collect a pee sample: ?24 hours after a stone comes out. ?8 12 weeks after a stone comes out, and every 6 12 months after that. Strain your pee every time you pee (urinate), for as long as told. Use the strainer that your doctor recommends. Do not throw out the stone. Keep it so that it can be tested by your doctor. Keep all follow-up visits as told by your doctor. This is important. You may need follow-up tests. How is this prevented? To prevent another kidney stone: Drink enough fluid to keep your pee pale yellow. This is the best way to prevent kidney stones. Eat healthy foods. Avoid certain foods as told by your doctor. You may be told to eat less protein. Stay at a healthy weight. Where to find more information National Kidney Foundation (NKF): www.kidney.org [facility] (UCF): www.urologyhealth.org Contact a doctor if: You have pain that gets worse or does not get better with medicine. Get help right away if: You have a fever or chills. You get very bad pain. You get new pain in your belly (abdomen). You pass out (faint). You cannot pee. Summary Kidney stones are rock-like masses that form inside of the kidneys. Kidney stones can cause very bad pain and can block the flow of pee. The stones will often pass out of the body through peeing. Drink enough fluid to keep your pee pale yellow. This information is not intended to replace advice given to you by your health care provider. Make sure you discuss any questions you have with your health care provider. Document Released: 11/29/2008 Document Revised: 10/30/2019 Document Reviewed: 10/30/2019 [employer] Patient Education 2020 [employer] Follow Up Care 08/17/2022 09:18:37 With:CARLOS OLIVEROS, Ni Garcia, URL Address: [address] [place], [place] [id number]- When: Unknown [facility] [id number] Note [id number]:[id number] 08-15-2022 Discharge summary Author Hiral Interiano [facility] August 15, 2022 1:50pm Note Date/Time August 15, 2022 1:50pm [facility] [address] [place] [id number] Discharge Summary Signed Patient: Victorino Smyth MR#: [id number] : 1940 Acct:[id number] Age/Sex: 82 / M Adm Date: 3 Loc: 4N Room: 1J5613-[address]: Hiral Interiano MD Copies to: MD Hiral James MD~ Providers Date of Discharge: 08/15/22 Discharging Provider: Hiral Interiano Primary Care Provider: Tray Alfaro Consults: 08/11/22 13:41 Consult to Cardiology Routine Consult to Nephrology Routine Consult to Urology Routine 08/11/22 14:20 Consult to Pulmonology Routine 08/12/22 10:29 Consult to Physical Therapy Routine OT [Consult to Occupational Therapy] Routine Discharge Diagnosis (1) Acute kidney injury superimposed on chronic kidney disease: (2) Hyperkalemia: (3) Metabolic acidosis: (4) Hydronephrosis with ureteral calculus: (5) CKD (chronic kidney disease) stage 3, GFR 30-59 ml/min: (6) Type 2 diabetes mellitus with diabetic chronic kidney disease: (7) Hypertensive chronic kidney disease with stage 1 through stage 4 chronic kidney disease, or unspecified chronic kidney disease: (8) Lung nodule: Final Diagnosis Final Discharge Diagnosis: As above Summary Hospital Course Hospital course: Patient is a pleasant 82-year-old male with past medical history of coronary artery disease status post PCI, diabetes mellitus type 2, chronic kidney diseaseand history of nephrolithiasis. He initially presented to [facility] ER with complaint of hypoglycemia and was found to have severe renal failure along with metabolic acidosis and hyperkalemia. CT scan at [facility] showed atrophic left kidney with obstructing stone in the right ureteropelvic junction. Patient was transferred to [facility] for further intervention. On arrival is noted to be tachypneic with severe metabolic acidosis and was admitted to ICU for close monitoring. Seen by nephrology service and started on emergent hemodialysis after placement of dialysis catheter due to significant hyperkalemia and renal failure. Urology was consulted and patient underwent cystoscopy with right double-J stent placement without complication. He did mention having chest discomfort and was seen by cardiology and cleared for the procedure. He remained stable postprocedure without any chest pain. His renal function has significantly improved and does not require hemodialysis. Due to improved symptoms patient will be discharged home outpatient follow-up with nephrology and urology. He is also advised to follow-up with his soft top installer in 4-week. CT scan at [facility] also showed 0.8 cm nodule on the left lower lobe. Patient does have history of smoking and would recommend repeating CT scan in 4 to 6-week as a follow-up to be followed by his primary care provider. Patient has been ambulating without any difficulty and denies any complaint at this time. During the hospital stay he also completed course of IV antibiotic for suspected pneumonia. No growth on sputum culture noted. Condition Condition at Discharge: Stable Status at Discharge Functional status at discharge: independent ambulation Overall status at discharge: patient is back to baseline Time Spent with Patient Time spent providing/coordinating discharge services (# min): 40 Surgeries and Procedures Operation Date: 08/13/22 12:30 Actual Procedures p OR Cysto/Retro/Stent(Right) - Ni Olivares MD Diagnostic Studies Completed and Pending Studies Pending studies at discharge: 08/14/22 21:34 Sputum Culture Routine Preliminary micro results at discharge 08/14/22 21:34 Aerobic Culture - Pending Sputum - Expectorated Gram Stain - Preliminary Labs on day of discharge: 08/15/22 12:15: POC Glucose 135 08/15/22 08:00: POC Glucose 163 08/15/22 05:00: PHA Creatinine Clear 21.94, Sodium 140, Potassium 3.8, Chloride 112, Carbon Dioxide 21.5 L, Anion Gap 10.3, BUN 45 H, Creatinine 3.46 H D, Est GFR ( Amer) 21, Est GFR (Non-Af Amer) 17, Glucose 140 H, Calcium 7.7 L 08/14/22 20:49: POC Glucose 140, POC Glucose Comment Glu2: cleaned meter 08/14/22 16:57: POC Glucose 125 Exam Physical Exam Vital Signs: Temp Pulse Resp BP Pulse Ox O2 Del Method O2 Flow Rate 97.8 F 68 18 146/92 H 95 Room Air 8 08/15/22 12:16 08/15/22 12:16 08/15/22 12:16 08/15/22 12:16 08/15/22 12:16 08/15/22 12:16 08/13/22 13:10 Const Orientation: alert, awake and oriented x3 Resp Effort & Inspection: normal respiratory effort and able to speak in complete sentences Auscultation: no rales, no rhonchi and no wheezes Cardio Rate: regular rate Rhythm: regular rhythm Heart Sounds: S1 normal and S2 normal GI Palpation: soft, not firm, no guarding and nontender Auscultation: normal bowel sounds Neuro General: patient alert, patient awake, patient oriented x3, moves all extremities and no focal motor deficits Cranial Nerves: CN's II-XII intact bilaterally Cognition: normal cognition Speech: speech normal Motor: muscle tone normal throughout and strength 5/5 throughout Sensory Exam: no sensory deficits noted Extrem General: no clubbing, cyanosis or edema and no calf tenderness Discharge Plan Discharge Plan Patient Disposition: Home Activity: Ambulate as Tolerated Diet: Carb Count, Low-Sodium and Low-Cholesterol Additional Instructions: Follow-up with your Primary Chief Embalmer in 4 weeks. Avoid NSAIDs for pain control. Follow up CT scan regarding lung nodule. Prescriptions: Continued atorvastatin 80 mg tablet 40 mg PO HS nitroglycerin 0.3 mg Tablet, Sublingual 0.3 mg SUBLINGUAL Q5-15M PRN (Reason: Chest Pain) amlodipine 10 mg tablet 10 mg PO DAILY metoprolol tartrate 50 mg tablet 50 mg PO BID aspirin 81 mg Tablet,Chewable 81 mg PO DAILY cholecalciferol (vitamin D3) 5,000 unit Tablet,Disintegrating 5,000 unit PO DAILY dicyclomine 10 mg capsule 10 mg PO TID PRN (Reason: spasm) Qty: 14 0RF Rx Instructions: for bladder spasms glimepiride 4 mg tablet 1 mg PO DAILY Qty: 0 0RF sitagliptin phosphate 100 mg tablet 50 mg PO DAILY Qty: 0 0RF Discontinued doxycycline hyclate 100 mg tablet 100 mg PO BID 7 Days Qty: 14 0RF Other Ambulatory Orders: CT chest wo con high res (Routine) Timeframe: 4 Weeks Location: Determined by Patient Ordered By: Hiral Interiano Renal Function Panel (Routine) Timeframe: 3 Days Location: Determined by Patient Ordered By: Alicia Perea Follow Up: Ni Olivares MD [Active Staff] - (Please call my office to arrange for an office visit with a kidney ultrasound obtained prior to the office visit. My office will have to send an order to arrange this. ) Tray Alfaro MD [Primary Care Provider] - (Call office on Tuesday to schedule follow-up with your Primary Care Provider in 3-5 days. ) Alicia Perea MD [Active Staff] - (Call office on Tuesday to schedule follow-up with Residential Program Coordinator. ) Documented By: Hiral Interiano MD 08/15/22 0903 Signed By: <Electronically signed by Hiral Interiano MD> 08/15/22 [address] [facility] Work Phone: [phone]) 972-936502-19-2023 Progress note Author Alicia Perea [facility] August 15, 2022 12:01pm Note Date/Time August 15, 2022 12:01pm [facility] [address] [place] [address] Nephrology Progress Note Signed Patient: Victorino Smyth MR#: [id number] : 1940 Acct:[id number] Age/Sex: 82 / M Adm Date: 3 Loc: Room: [address] [place] [address] Type: ADM IN Attending Dr: Hiral Interiano MD Copies to: ~ Date of Service: 08/15/2022 Subjective Subjective Narrative: This is a 82-year-old male with a medical history of coronary artery disease s/pPCI, nephrolithiasis, CKD, diabetes mellitus, hypertension, dyslipidemia was presented to the emergency room of [facility] for generalized weakness and low urine output. On evaluation emergency room patient was found to have a life- threatening hyperkalemia with serum potassium 7 mmol/L, acute kidney injurywith elevated serum creatinine 17.8 mg/dL, metabolic acidosis serum bicarbonate 13.5 mmol/L. He was given insulin D50 calcium gluconate in the [facility] emergency room. He had a CAT scan abdomen pelvis done which showed obstructive kidney stones in the right UPJ and total atrophy of the left kidney. Case was discussed with the on-call urologist Dr. Olivares and recommended patient needs to be n.p.o. for surgical intervention. He was transferred to [facility] for further care. Patient is history of CKD due to the longstanding DM, HTN and recurrent KELSEA with baseline serum creatinine 1.4 to 1.6 mg/dL. He follows in my office for his CKD care. Patient [facility] at [facility] had[facility] repeat labs done which showed persistent hyperkalemia, metabolic acidosis and hyperglycemia. His surgery was canceled due to his profound hyperkalemia and metabolic acidosis. Nephrology is consulted for KELSEA on CKD management. Interval history He had KELSEA due to the obstructive uropathy. He required emergent hemodialysis due to the critical metabolic acidosis and hyperkalemia prior to the procedure. He underwent the cystoscopy with right retrograde pyelogram with right double-Jureteral stent placement. His renal function has been improving he is making adequate urine output. Patient was seen and examined. He is feeling better denies any chest pain palpitation cough nausea, vomiting, shortness of breath. Exam Physical Exam Vital Signs: Temp Pulse Resp BP Pulse Ox O2 Del Method O2 Flow Rate 97.7 F 74 18 172/81 H 94 L Room Air 8 08/15/22 07:58 08/15/22 07:58 08/15/22 07:58 08/15/22 07:58 08/15/22 07:58 08/15/22 08:00 08/13/22 13:10 Narrative: General: Appears comfortable and not in distress Heart: S1-S2, no rub Lung: Bilateral air entry, no wheezing or crackles Abdomen: Soft, positive bowel sounds Extremities: Trace edema, no cyanosis Head: Atraumatic, normocephalic Ear: No gross hearing Deficit or external ear redness Eyes: No pallor or redness Neck: No JVD or visible mass Skin: No rashes or bruises CORE STRIPPER: Awake,Alert, following simple command Musculoskeletal: No joint swelling or limitation of movement Psychiatric: Cooperative, normal mood and affect Objective Intake and Output I&O: Intake & Output 08/12/22 08/13/22 08/14/22 08/15/22 23:59 23:59 23:59 23:59 Intake Total 1500 / 1500 1100 / 1100 941 / 941 242 / 242 Output Total 2010 725 / 725 Balance -511 / -511 375 / 375 941 / 941 242 / 242 Weight 118.7 kg 117.9 kg 118 kg 118.2 kg Meds and Allergies Meds: Active Medications Acetaminophen (Acetaminophen 325 Mg Tablet) 650 mg PO Q6HR PRN PRN Reason: Pain Scale 1 - 3 or fever Stop: 08/11/23 13:40 Amlodipine Besylate (Amlodipine 10 Mg Tablet) 10 mg PO DAILY [facility] Stop: 08/16/23 08:59 Aspirin (Aspirin 81 Mg Tablet.Dr) 81 mg PO DAILY [facility] Stop: 08/12/23 08:59 Last Admin: 08/15/22 09:45 Dose: 81 mg Atorvastatin Calcium (Atorvastatin 40 Mg Tablet) 40 mg PO HS [facility] Stop: 08/11/23 21:59 Last Admin: 08/14/22 21:08 Dose: 40 mg Dextrose (Dextrose 50% In Water 25 Gm/50 Ml Syringe) 0 gm IV-PUSH PRN PRN PRN Reason: Hypoglycemia Stop: 08/11/23 14:01 Doxycycline Hyclate (Doxycycline Hyclate 100 Mg Tablet) 100 mg PO BID [facility] Stop: 08/18/22 20:59 Last Admin: 08/15/22 09:45 Dose: 100 mg Glucose (Dextrose 40% Gel 15 Gm Tube) 0 gm PO PRN PRN PRN Reason: Hypoglycemia Stop: 08/11/23 14:01 Guaifenesin (Guaifenesin 600 Mg Tab.Er.12h) 1,200 mg PO BID [facility] Stop: 08/12/23 20:59 Last Admin: 08/15/22 09:45 Dose: 1,200 mg Heparin Sodium (Porcine) (Heparin 10,000 Unit/10 Ml Vial) 0 unit IV PRN PRN PRN Reason: Dialysis Stop: 08/11/23 14:19 Last Admin: 08/11/22 16:53 Dose: 10,000 unit Heparin Sodium (Porcine) (Heparin 10,000 Unit/10 Ml Vial) 2,200 unit IV PRN PRN PRN Reason: Dialysis Stop: 08/19/23 18:44 Last Admin: 08/12/22 10:25 Dose: 2,200 unit Heparin Sodium (Porcine) (Heparin 5,000 Unit/Ml Vial) 5,000 unit SUBCUT Q8HR [facility] Stop: 08/12/23 21:59 Last Admin: 08/15/22 05:09 Dose: Not Given Hydralazine HCl (Hydralazine 20 Mg/Ml Vial) 10 mg IV-PUSH Q4H PRN PRN Reason: Hypertension Stop: 08/11/23 13:40 Last Admin: 08/14/22 05:44 Dose: 10 mg Sodium Chloride (0.9% Sodium Chloride 1,000 Ml) 1,000 mls @ 0 mls/hr MISCELLANE.Q0M PRN PRN Reason: Dialysis Stop: 08/11/23 14:19 Last Infusion: 08/12/22 12:38 Dose: Infused Insulin Aspart (Insulin Aspart 300 Units/3 Ml Insuln.Pen) 0 units SUBCUT TID.WM.HS [facility]; Protocol Stop: 08/11/23 16:59 Last Admin: 08/15/22 09:46 Dose: 5 units Insulin Glargine (Insulin Glargine 300 Units/3 Ml Insuln.Pen) 5 units SUBCUT DAILY [facility] Stop: 08/13/23 08:59 Last Admin: 08/15/22 09:47 Dose: 5 units Melatonin (Melatonin 5 Mg Tablet) 5 mg PO QHS PRN PRN Reason: insomnia Stop: 08/14/23 21:59 Last Admin: 08/14/22 21:08 Dose: 5 mg Metoprolol Tartrate (Metoprolol Tartrate 50 Mg Tablet) 50 mg PO BID [facility] Stop: 08/11/23 20:59 Last Admin: 08/15/22 09:45 Dose: 50 mg Nitroglycerin (Nitroglycerin 0.4 Mg Tab.Subl) 0.4 mg SUBLINGUAL Q5M PRN PRN Reason: Chest Pain Stop: 08/11/23 14:01 Promethazine HCl (Promethazine 25 Mg/Ml Vial) 12.5 mg IV-PUSH Q6H PRN PRN Reason: Nausea/Vomiting Stop: 08/12/23 21:14 Last Admin: 08/13/22 13:50 Dose: 12.5 mg Simethicone (Simethicone 80 Mg Tab.Chew) 80 mg PO TID PRN PRN Reason: Flatulence Stop: 08/12/23 21:59 Last Admin: 08/13/22 00:46 Dose: 80 mg Sodium Chloride (Sodium Chloride 0.9 % 10 Ml Syringe) 0 ml IV-PUSH PRN PRN PRN Reason: Flush Stop: 08/11/23 14:19 Last Admin: 08/12/22 23:05 Dose: 10 ml Sodium Chloride (Sodium Chloride 0.9 % 10 Ml Syringe) 0 ml IV-PUSH PRN PRN PRN Reason: Flush Stop: 08/11/23 15:44 Last Admin: 08/12/22 10:25 Dose: 40 ml Allergies ciprofloxacin [From Cipro] Allergy (Verified 08/13/22 15:32) Hives Penicillins Allergy (Verified 06/28/19 17:24) Hives Results Labs 08/14/22 04:33 08/15/22 05:00 Labs: 08/15/22 05:00 BUN 45 H Creatinine 3.46 H D Radiology Impressions Impressions - last 24 hours: Any impression(s) listed above is documentation that was entered by the reading physician into a diagnostic report(s) for Victorino Smyth. I have reviewed the report(s) and am incorporating any findings in the treatment plan of this patient where applicable. A&P - Nephrology Assessment/Plan (1) Acute kidney injury superimposed on chronic kidney disease: Plan: He has an acute kidney injury due to the obstructive uropathy of right kidney. He has left renal atrophy. (2) Hyperkalemia: Plan: He has hyperkalemia likely due to acute kidney injury metabolic acidosis and hyperglycemia. His potassium is back to normal with dialysis. (3) Metabolic acidosis: Plan: He has critical metabolic acidosis likely due to the KELSEA on CKD and hyperglycemia. His metabolic acidosis has improved with dialysis. (4) Hydronephrosis with ureteral calculus: Plan: He has obstructive uropathy of the right kidney. Urology has been consulted plan to do ureteral stent placement once he is medically stable. (5) CKD (chronic kidney disease) stage 3, GFR 30-59 ml/min: Plan: He has a longstanding CKD due to the DM, HTN and recurrent KELSEA due to the obstructive uropathy. His baseline serum creatinine is 1.4 to 1.6 mg/dL. (6) Type 2 diabetes mellitus with diabetic chronic kidney disease: Plan: He has known insulin-dependent type 2 diabetes mellitus and was taking sitagliptin and glimepiride at home (7) Hypertensive chronic kidney disease with stage 1 through stage 4 chronic kidney disease, or unspecified chronic kidney disease: Plan: Blood pressure is high. He is appears to be euvolemic. Plan * DC dialysis catheter. Charge nurse was informed about it. * Resume home dose of the amlodipine * Patient can be discharged from renal standpoint. * Continue DM management as per the primary hospitalist team. The goal of blood sugars between 100 to 150 mg/dL. * Continue home dose of the metoprolol * Check renal function 3 days after discharge. * Outpatient follow-up in our office. Patient was advised that if he has difficulty in urination he can call office. Documented By: Alicia Perea MD 08/15/22 1158 Signed By: <Electronically signed by Alicia Perea MD> 08/15/22 [address] [facility] Work Phone: [phone]) 440-878802-19-2023 Progress note Author Cade Alvarez [facility] August 15, 2022 11:31am Note Date/Time August 15, 2022 11:31am [facility] [address] [place] [address] Cardiology Progress Note Signed Patient: Victorino Smyth MR#: [id number] : 1940 Acct:[id number] Age/Sex: 82 / M Adm Date: 3 Loc: 4N Room: [address] [place] [address] Type: ADM IN Attending Dr: Hiral Interiano MD Copies to: ~ Date of Service: 08/15/2022 Subjective Principal diagnosis: Acute kidney injury requiring dialysis, obstructive uropathy. Stable CHD. Interval history: Mr. Smyth is doing well this morning. He underwent successful ureteral stent placement [address] Olivares. The procedure was uncomplicated, cardiac or otherwise. This morning Mr. Smyth is without complaint. On my interview he is sitting up in a chair breathing comfortably. He denies any chest pain chest pressure or other anginal symptoms. He denies any resting dyspnea or orthopnea. He is having brisk urine output. He tells me that the plan is for his temporary hemodialysis catheter to be removed today and for him to discharge to home this afternoon. Exam Physical Exam Vital Signs: Temp Pulse Resp BP Pulse Ox O2 Del Method O2 Flow Rate 97.7 F 74 18 172/81 H 94 L Room Air 8 08/15/22 07:58 08/15/22 07:58 08/15/22 07:58 08/15/22 07:58 08/15/22 07:58 08/15/22 08:00 08/13/22 13:10 Const General: cooperative, no acute distress and ill appearing Nutritional Appearance: obese Orientation: alert, awake and oriented x3 HEENT Head: normocephalic and atraumatic Face and sinus: face symmetric Mouth: moist mucous membranes Teeth and gingiva: fair dentition Eyes Conjunctivae: conjunctivae normal Sclera: sclerae normal Pupils: PERRL and accommodation normal EOM: EOM intact bilaterally Direct ophthalmoscopy: no photophobia Neck Neck: no lymphadenopathy and supple Neck mass: No Thyroid: thyroid normal Carotids: normal carotid upstroke Lymphatic: no lymphadenopathy noted Chest Chest palpation & inspection: normal inspection of the chest Resp Effort & Inspection: normal respiratory effort, able to speak in complete sentences, symmetric chest movement and abnormal respiratory pattern Auscultation: diminished lung sounds Cardio Jugular venous pressure: no JVD and JVD Palpation: abnormal PMI, heave and palpable S4 Rate: regular rate Rhythm: regular rhythm Heart Sounds: S1 normal, S2 normal and gallop S4 gallop Pulses: radial pulses present and femoral pulses present GI Palpation: soft and no hepatosplenomegaly Auscultation: normal bowel sounds Skin General: no rashes or lesions noted Trauma: no lacerations or abrasions Wounds: no wounds Neuro General: patient alert, patient awake, patient oriented x3, moves all extremities and no focal motor deficits Cranial Nerves: CN's II-XII intact bilaterally Cognition: normal cognition Speech: speech normal Motor: muscle tone normal throughout Sensory Exam: no sensory deficits noted Extrem General: edema Psych Mood: congruent mood Affect: normal affect Speech and Movement: speech and movement normal Attitude: cooperative Thought Process: normal Insight: fair Judgment: fair Objective Labs 08/14/22 04:33 08/15/22 05:00 Labs: Laboratory Results - last 24 hr 08/14/22 08/14/22 08/14/22 11:26 16:57 20:49 PHA Creatinine Clear Sodium Potassium Chloride Carbon Dioxide Anion Gap BUN Creatinine Est GFR ( Amer) Est GFR (Non-Af Amer) Glucose POC Glucose 140 125 140 POC Glucose Comment Glu2: cleaned meter Calcium 08/15/22 08/15/22 05:00 08:00 PHA Creatinine Clear 21.94 Sodium 140 Potassium 3.8 Chloride 112 Carbon Dioxide 21.5 L Anion Gap 10.3 BUN 45 H Creatinine 3.46 H D Est GFR ( Amer) 21 Est GFR (Non-Af Amer) 17 Glucose 140 H POC Glucose 163 POC Glucose Comment Calcium 7.7 L A&P - Cardiology (1) Preoperative cardiovascular examination: Code(s): Z01.810 - Encounter for preprocedural cardiovascular examination Status: Acute Plan: Recommendations: 1. Maintain aspirin 81 mg daily 2. Maintain atorvastatin 40 mg daily 3. Maintain beta-blockade with metoprolol tartrate 50 mg twice daily 4. Agree with removal of temporary hemodialysis catheter today followed by discharge to home. 5. Please make sure that the patient has cardiology follow-up with his primary soft top installer in [place] within 4 weeks of discharge. (2) CAD (coronary artery disease): Code(s): I25.10 - Atherosclerotic heart disease of [place] coronary artery without angina pectoris Status: Acute Plan: Medical recommendations as above. Plan Thank you very much for this kind consultation and for allowing us to participate in the care of this very pleasant patient. Cardiology will sign offfor now Time spent with patient Time Spent With Patient (min): 30 Documented By: Cade Alvarez MD 08/15/22 1129 Signed By: <Electronically signed by Cade Alvarez MD> 08/15/22 [address] [facility] Work Phone: [phone] Progress note Author Hiral Interiano [facility] August 14, 2022 2:57pm Note Date/Time August 14, 2022 2:49pm [facility] [address] [place] [address] Hospitalist Progress Note Signed Patient: Victorino Smyth MR#: [id number] : 1940 Acct:[id number] Age/Sex: 82 / M Adm Date: 3 Loc: 4N Room: [address] [place] [address] Type: ADM IN Attending Dr: Hiral Interiano MD Copies to: ~ Date of Service: 08/14/2022 Subjective Subjective Narrative: Patient examined at bedside and currently denies any complaint. He did not sleep well last night and mentioned has not slept for last couple of days. Renal function is improving and did not require hemodialysis. Remains on room air. He mentioned his cough has improved as well. Exam Physical Exam Vital Signs: Temp Pulse Resp BP Pulse Ox O2 Del Method O2 Flow Rate 98.0 F 76 16 174/82 H 95 Room Air 8 08/14/22 11:41 08/14/22 11:41 08/14/22 11:41 08/14/22 11:41 08/14/22 11:41 08/14/22 11:41 08/13/22 13:10 Const Orientation: alert, awake and oriented x3 Resp Effort & Inspection: normal respiratory effort and able to speak in complete sentences Auscultation: no rales, no rhonchi and no wheezes Cardio Rate: regular rate Rhythm: regular rhythm Heart Sounds: S1 normal and S2 normal GI Palpation: soft, not firm, no guarding and nontender Auscultation: normal bowel sounds Neuro General: patient alert, patient awake, patient oriented x3, moves all extremities and no focal motor deficits Cranial Nerves: CN's II-XII intact bilaterally Cognition: normal cognition Speech: speech normal Motor: muscle tone normal throughout and strength 5/5 throughout Sensory Exam: no sensory deficits noted Extrem General: no clubbing, cyanosis or edema and no calf tenderness Psych Appearance: grossly normal Objective Lab Results 08/14/22 04:33 08/14/22 04:33 Meds Allergies and Active Meds Allergies ciprofloxacin [From Cipro] Allergy (Verified 08/13/22 15:32) Hives Penicillins Allergy (Verified 06/28/19 17:24) Hives Active Meds: Active Medications Generic Name Dose Route Start Last Admin Trade Name Freq PRN Reason Stop Dose Admin Acetaminophen 650 mg 08/11/22 13:41 Acetaminophen 325 Mg Tablet PO 08/11/23 13:40 Q6HR PRN Pain Scale 1 - 3 or fever Aspirin 81 mg 08/12/22 09:00 08/14/22 08:22 Aspirin 81 Mg Tablet.Dr PO 08/12/23 08:59 81 mg DAILY MAURICIO Administration Atorvastatin Calcium 40 mg 08/11/22 22:00 08/13/22 21:12 Atorvastatin 40 Mg Tablet PO 08/11/23 21:59 40 mg HS MAURICIO Administration Dextrose 0 gm 08/11/22 14:02 Dextrose 50% In Water 25 Gm/50 Ml Syringe IV-PUSH 08/11/23 14:01 PRN PRN Hypoglycemia Doxycycline Hyclate 100 mg 08/13/22 21:00 08/14/22 08:23 Doxycycline Hyclate 100 Mg Tablet PO 08/18/22 20:59 100 mg BID MAURICIO Administration Glucose 0 gm 08/11/22 14:02 Dextrose 40% Gel 15 Gm Tube PO 08/11/23 14:01 PRN PRN Hypoglycemia Guaifenesin 1,200 mg 08/12/22 21:00 08/14/22 08:22 Guaifenesin 600 Mg Tab.Er.12h PO 08/12/23 20:59 1,200 mg BID MAURICIO Administration Heparin Sodium (Porcine) 0 unit 08/11/22 14:20 08/11/22 16:53 Heparin 10,000 Unit/10 Ml Vial IV 08/11/23 14:19 10,000 unit PRN PRN Administration Dialysis Heparin Sodium (Porcine) 2,200 unit 08/11/22 18:45 08/12/22 10:25 Heparin 10,000 Unit/10 Ml Vial IV 08/19/23 18:44 2,200 unit PRN PRN Administration Dialysis Heparin Sodium (Porcine) 5,000 unit 08/12/22 22:00 08/14/22 06:05 Heparin 5,000 Unit/Ml Vial SUBCUT 08/12/23 21:59 Not Given Q8HR [facility] Hydralazine HCl 10 mg 08/11/22 13:41 08/14/22 05:44 Hydralazine 20 Mg/Ml Vial IV-PUSH 08/11/23 13:40 10 mg Q4H PRN Administration Hypertension Sodium Chloride 1,000 mls @ 0 mls/hr 08/11/22 14:20 08/12/22 12:38 0.9% Sodium Chloride 1,000 Ml MISCELLANE 08/11/23 14:19 Infused .Q0M PRN Infusion Dialysis As Directed Insulin Aspart 0 units 08/11/22 17:00 08/14/22 11:50 Insulin Aspart 300 Units/3 Ml Insuln.Pen SUBCUT 08/11/23 16:59 Not Given TID.[facility] Protocol Insulin Glargine 5 units 08/13/22 09:00 08/14/22 11:59 Insulin Glargine 300 Units/3 Ml Insuln.Pen SUBCUT 08/13/23 08:59 5 units DAILY [facility] Administration Metoprolol Tartrate 50 mg 08/11/22 21:00 08/14/22 08:23 Metoprolol Tartrate 50 Mg Tablet PO 08/11/23 20:59 50 mg BID MAURICIO Administration Nitroglycerin 0.4 mg 08/11/22 14:02 Nitroglycerin 0.4 Mg Tab.Subl SUBLINGUAL 08/11/23 14:01 Q5M PRN Chest Pain Promethazine HCl 12.5 mg 08/12/22 21:10 08/13/22 13:50 Promethazine 25 Mg/Ml Vial IV-PUSH 08/12/23 21:14 12.5 mg Q6H PRN Administration Nausea/Vomiting Simethicone 80 mg 08/12/22 21:07 08/13/22 00:46 Simethicone 80 Mg Tab.Chew PO 08/12/23 21:59 80 mg TID PRN Administration Flatulence Sodium Chloride 0 ml 08/11/22 14:20 08/12/22 23:05 Sodium Chloride 0.9 % 10 Ml Syringe IV-PUSH 08/11/23 14:19 10 ml PRN PRN Administration Flush Sodium Chloride 0 ml 08/11/22 15:45 08/12/22 10:25 Sodium Chloride 0.9 % 10 Ml Syringe IV-PUSH 08/11/23 15:44 40 ml PRN PRN Administration Flush A&P - Hospitalist Assessment/Plan (1) Acute kidney injury superimposed on chronic kidney disease: Plan: Renal function improving after placement of ureteral stent with no need for hemodialysis today. Does have good urine output. Nephrology on consult to monitor renal function. Hopefully his renal function continues to improve and patient does not require further hemodialysis. (2) Obstructive nephropathy: Plan: Appreciate urology consultation and patient underwent cystoscopy with placement of right ureteral stent without any complication. (3) Hyperkalemia: Plan: Resolved. (4) Diabetes: Plan: Blood glucose better controlled. His A1c level came back at 9 suggesting poorlycontrolled diabetes. Continue basal insulin with sliding scale coverage. Bloodglucose well controlled (5) CAD (coronary artery disease): Plan: No significant elevation in troponin with EKG negative for acute ischemic changes. Appreciate cardiology consultation for preoperative evaluation has been cleared for surgical intervention if required. Continue aspirin, statin and beta-[place]. (6) Hydronephrosis with ureteral calculus: (7) Metabolic acidosis: Plan: Resolved. Plan Ceftriaxone has been discontinued since cough has improved. On subcutaneous heparin for DVT prophylaxis. Continue PT/OT. We will add melatonin for insomnia and continue doxycycline for total of 5 days. Documented By: Hiral Interiano MD 08/14/22 9881 Signed By: <Electronically signed by Hiral Interiano MD> 08/14/22 [address] [facility] Work Phone: [phone]) 263-198702-18-2023 Progress note Author Alicia Perea [facility] August 14, 2022 11:55am Note Date/Time August 14, 2022 11:55am [facility] [address] [place] [address] Nephrology Progress Note Signed Patient: Victorino Smyth MR#: [id number] : 1940 Acct:[id number] Age/Sex: 82 / M Adm Date: 3 Loc: 4N Room: [address] [place] [address] Type: ADM IN Attending Dr: Hiral Interiano MD Copies to: ~ Date of Service: 08/14/2022 Subjective Subjective Narrative: This is a 82-year-old male with a medical history of coronary artery disease s/pPCI, nephrolithiasis, CKD, diabetes mellitus, hypertension, dyslipidemia was presented to the emergency room of [facility] for generalized weakness and low urine output. On evaluation emergency room patient was found to have a life- threatening hyperkalemia with serum potassium 7 mmol/L, acute kidney injurywith elevated serum creatinine 17.8 mg/dL, metabolic acidosis serum bicarbonate 13.5 mmol/L. He was given insulin D50 calcium gluconate in the [place] emergency room. He had a CAT scan abdomen pelvis done which showed obstructive kidney stones in the right UPJ and total atrophy of the left kidney. Case was discussed with the on-call urologist Dr. Olivares and recommended patient needs to be n.p.o. for surgical intervention. He was transferred to [facility] for further care. Patient is history of CKD due to the longstanding DM, HTN and recurrent KELSEA with baseline serum creatinine 1.4 to 1.6 mg/dL. He follows in my office for his CKD care. Patient [facility] had[facility] repeat labs done which showed persistent hyperkalemia, metabolic acidosis and hyperglycemia. His surgery was canceled due to his profound hyperkalemia and metabolic acidosis. Nephrology is consulted for KELSEA on CKD management. Interval history Patient was seen and examined. He is feeling better denies any chest pain palpitation cough nausea, vomiting, shortness of breath. He underwent the cystoscopy with right retrograde pyelogram with right double-J ureteral stent placement. He is making adequate urine output. Exam Physical Exam Vital Signs: Temp Pulse Resp BP Pulse Ox O2 Del Method O2 Flow Rate 98.0 F 76 16 174/82 H 95 Room Air 8 08/14/22 11:41 08/14/22 11:41 08/14/22 11:41 08/14/22 11:41 08/14/22 11:41 08/14/22 11:41 08/13/22 13:10 Narrative: General: Appears comfortable and not in distress Heart: S1-S2, no rub Lung: Bilateral air entry, no wheezing or crackles Abdomen: Soft, positive bowel sounds Extremities: Trace edema, no cyanosis Head: Atraumatic, normocephalic Ear: No gross hearing Deficit or external ear redness Eyes: No pallor or redness Neck: No JVD or visible mass Skin: No rashes or bruises CORE STRIPPER: Awake,Alert, following simple command Musculoskeletal: No joint swelling or limitation of movement Psychiatric: Cooperative, normal mood and affect Objective Intake and Output I&O: Intake & Output 08/11/22 08/12/22 08/13/22 08/14/22 23:59 23:59 23:59 23:59 Intake Total 800 / 800 1500 / 1500 1100 / 1100 80 / 80 Output Total 1508 / 1508 2010 725 / 725 Balance -708 / -708 -511 / -511 375 / 375 80 / 80 Weight 118.2 kg 118.7 kg 117.9 kg 118 kg Meds and Allergies Meds: Active Medications Acetaminophen (Acetaminophen 325 Mg Tablet) 650 mg PO Q6HR PRN PRN Reason: Pain Scale 1 - 3 or fever Stop: 08/11/23 13:40 Aspirin (Aspirin 81 Mg Tablet.) 81 mg PO DAILY MAURICIO Stop: 08/12/23 08:59 Last Admin: 08/14/22 08:22 Dose: 81 mg Atorvastatin Calcium (Atorvastatin 40 Mg Tablet) 40 mg PO HS MAURICIO Stop: 08/11/23 21:59 Last Admin: 08/13/22 21:12 Dose: 40 mg Dextrose (Dextrose 50% In Water 25 Gm/50 Ml Syringe) 0 gm IV-PUSH PRN PRN PRN Reason: Hypoglycemia Stop: 08/11/23 14:01 Doxycycline Hyclate (Doxycycline Hyclate 100 Mg Tablet) 100 mg PO BID [facility] Stop: 08/18/22 20:59 Last Admin: 08/14/22 08:23 Dose: 100 mg Glucose (Dextrose 40% Gel 15 Gm Tube) 0 gm PO PRN PRN PRN Reason: Hypoglycemia Stop: 08/11/23 14:01 Guaifenesin (Guaifenesin 600 Mg Tab.Er.12h) 1,200 mg PO BID MAURICIO Stop: 08/12/23 20:59 Last Admin: 08/14/22 08:22 Dose: 1,200 mg Heparin Sodium (Porcine) (Heparin 10,000 Unit/10 Ml Vial) 0 unit IV PRN PRN PRN Reason: Dialysis Stop: 08/11/23 14:19 Last Admin: 08/11/22 16:53 Dose: 10,000 unit Heparin Sodium (Porcine) (Heparin 10,000 Unit/10 Ml Vial) 2,200 unit IV PRN PRN PRN Reason: Dialysis Stop: 08/19/23 18:44 Last Admin: 08/12/22 10:25 Dose: 2,200 unit Heparin Sodium (Porcine) (Heparin 5,000 Unit/Ml Vial) 5,000 unit SUBCUT Q8HR [facility] Stop: 08/12/23 21:59 Last Admin: 08/14/22 06:05 Dose: Not Given Hydralazine HCl (Hydralazine 20 Mg/Ml Vial) 10 mg IV-PUSH Q4H PRN PRN Reason: Hypertension Stop: 08/11/23 13:40 Last Admin: 08/14/22 05:44 Dose: 10 mg Ceftriaxone Sodium (Rocephin) 1 gm in 50 mls @ 100 mls/hr IV Q24H [facility] Stop: 08/14/22 14:14 Last Admin: 08/13/22 15:07 Dose: 100 mls/hr Sodium Chloride (0.9% Sodium Chloride 1,000 Ml) 1,000 mls @ 0 mls/hr MISCELLANE.Q0M PRN PRN Reason: Dialysis Stop: 08/11/23 14:19 Last Infusion: 08/12/22 12:38 Dose: Infused Insulin Aspart (Insulin Aspart 300 Units/3 Ml Insuln.Pen) 0 units SUBCUT TID.[facility]; Protocol Stop: 08/11/23 16:59 Last Admin: 02/18/23 11:50 Dose: Not Given Insulin Glargine (Insulin Glargine 300 Units/3 Ml Insuln.Pen) 5 units SUBCUT DAILY MAURICIO Stop: 08/13/23 08:59 Last Admin: 08/13/22 08:45 Dose: Not Given Metoprolol Tartrate (Metoprolol Tartrate 50 Mg Tablet) 50 mg PO BID MAURICIO Stop: 08/11/23 20:59 Last Admin: 08/14/22 08:23 Dose: 50 mg Nitroglycerin (Nitroglycerin 0.4 Mg Tab.Subl) 0.4 mg SUBLINGUAL Q5M PRN PRN Reason: Chest Pain Stop: 08/11/23 14:01 Promethazine HCl (Promethazine 25 Mg/Ml Vial) 12.5 mg IV-PUSH Q6H PRN PRN Reason: Nausea/Vomiting Stop: 08/12/23 21:14 Last Admin: 08/13/22 13:50 Dose: 12.5 mg Simethicone (Simethicone 80 Mg Tab.Chew) 80 mg PO TID PRN PRN Reason: Flatulence Stop: 08/12/23 21:59 Last Admin: 08/13/22 00:46 Dose: 80 mg Sodium Chloride (Sodium Chloride 0.9 % 10 Ml Syringe) 0 ml IV-PUSH PRN PRN PRN Reason: Flush Stop: 08/11/23 14:19 Last Admin: 08/12/22 23:05 Dose: 10 ml Sodium Chloride (Sodium Chloride 0.9 % 10 Ml Syringe) 0 ml IV-PUSH PRN PRN PRN Reason: Flush Stop: 08/11/23 15:44 Last Admin: 08/12/22 10:25 Dose: 40 ml Allergies ciprofloxacin [From Cipro] Allergy (Verified 08/13/22 15:32) Hives Penicillins Allergy (Verified 06/28/19 17:24) Hives Results Labs 08/14/22 04:33 08/14/22 04:33 Labs: 08/13/22 08/14/22 11:52 04:33 BUN 61 H Creatinine 6.60 H D Albumin 3.0 L Radiology Impressions Impressions - last 24 hours: Impressions Urethrocystography Retrograde X-Ray 08/13/22 00:00 Impression: Intraoperative study. Impression dictated by: Ifeanyi Perez Jr., D.O.08/13/2022 2:25 PM Dictation Location: [place] [address] Any impression(s) listed above is documentation that was entered by the reading physician into a diagnostic report(s) for Victorino Smyth. I have reviewed the report(s) and am incorporating any findings in the treatment plan of this patient where applicable. A&P - Nephrology Assessment/Plan (1) Acute kidney injury superimposed on chronic kidney disease: Plan: He has an acute kidney injury due to the obstructive uropathy of right kidney. He has left renal atrophy. (2) Hyperkalemia: Plan: He has hyperkalemia likely due to acute kidney injury metabolic acidosis and hyperglycemia. His potassium is back to normal with dialysis. (3) Metabolic acidosis: Plan: He has critical metabolic acidosis likely due to the KELSEA on CKD and hyperglycemia. His metabolic acidosis has improved with dialysis. (4) Hydronephrosis with ureteral calculus: Plan: He has obstructive uropathy of the right kidney. Urology has been consulted plan to do ureteral stent placement once he is medically stable. (5) CKD (chronic kidney disease) stage 3, GFR 30-59 ml/min: Plan: He has a longstanding CKD due to the DM, HTN and recurrent KELSEA due to the obstructive uropathy. His baseline serum creatinine is 1.4 to 1.6 mg/dL. (6) Type 2 diabetes mellitus with diabetic chronic kidney disease: Plan: He has known insulin-dependent type 2 diabetes mellitus and was taking sitagliptin and glimepiride at home (7) Hypertensive chronic kidney disease with stage 1 through stage 4 chronic kidney disease, or unspecified chronic kidney disease: Plan: Blood pressure is high. He is appears to be mildly hypervolemic. Plan * No need for dialysis today. We will continue to assess its needs on regular basis. If his renal function continues to improve we will remove hemodialysis catheter tomorrow. * Continue DM management as per the primary hospitalist team. The goal of blood sugars between 100 to 150 mg/dL. * Continue home dose of the metoprolol * Check renal function daily monitor input output Documented By: Alicia Perea MD 08/14/22 7011 Signed By: <Electronically signed by Alicia Perea MD> 08/14/22 36[address] [facility] Work Phone: [phone]) 745-729502-18-2023 Progress note Author Cade Alvarez [facility] August 14, 2022 11:21am Note Date/Time August 14, 2022 11:21am [facility] [address] [place] [address] Cardiology Progress Note Signed Patient: Victorino Smyth MR#: [id number] : 1940 Acct:[id number] Age/Sex: 82 / M Adm Date: 3 Loc: 4N Room: [address] [place] [address] Type: ADM IN Attending Dr: Hiral Interiano MD Copies to: ~ Date of Service: 08/14/2022 Subjective Principal diagnosis: Acute kidney injury requiring dialysis, obstructive uropathy. Stable CHD. Interval history: Mr. Smyth is doing well this morning. He underwent successful ureteral stent placement yesterday per Dr. Olivares. The procedure was uncomplicated, cardiac or otherwise. This morning Mr. Smyth is without complaint. On my interview he is sitting up in a chair breathing comfortably. He denies any chest pain chest pressure or other anginal symptoms. He denies any resting dyspnea or orthopnea. Laboratory evaluation shows a marked decrease in serum creatinine from 17-6.6. He is making urine. He has no new complaints presently. Exam Physical Exam Vital Signs: Temp Pulse Resp BP Pulse Ox O2 Del Method O2 Flow Rate 98.4 F 100 H 18 168/73 H 94 L Room Air 8 08/14/22 08:14 08/14/22 08:14 08/14/22 08:14 08/14/22 08:14 08/14/22 08:14 08/14/22 08:14 08/13/22 13:10 Const General: cooperative, no acute distress and ill appearing Nutritional Appearance: obese Orientation: alert, awake and oriented x3 HEENT Head: normocephalic and atraumatic Face and sinus: face symmetric Mouth: moist mucous membranes Teeth and gingiva: fair dentition Eyes Conjunctivae: conjunctivae normal Sclera: sclerae normal Pupils: PERRL and accommodation normal EOM: EOM intact bilaterally Direct ophthalmoscopy: no photophobia Neck Neck: no lymphadenopathy and supple Neck mass: No Thyroid: thyroid normal Carotids: normal carotid upstroke Lymphatic: no lymphadenopathy noted Chest Chest palpation & inspection: normal inspection of the chest Resp Effort & Inspection: normal respiratory effort, able to speak in complete sentences, symmetric chest movement and abnormal respiratory pattern Auscultation: diminished lung sounds Cardio Jugular venous pressure: no JVD and JVD Palpation: abnormal PMI, heave and palpable S4 Rate: regular rate Rhythm: regular rhythm Heart Sounds: S1 normal, S2 normal and gallop S4 gallop Pulses: radial pulses present and femoral pulses present GI Palpation: soft and no hepatosplenomegaly Auscultation: normal bowel sounds Skin General: no rashes or lesions noted Trauma: no lacerations or abrasions Wounds: no wounds Neuro General: patient alert, patient awake, patient oriented x3, moves all extremities and no focal motor deficits Cranial Nerves: CN's II-XII intact bilaterally Cognition: normal cognition Speech: speech normal Motor: muscle tone normal throughout Sensory Exam: no sensory deficits noted Extrem General: edema Psych Mood: congruent mood Affect: normal affect Speech and Movement: speech and movement normal Attitude: cooperative Thought Process: normal Insight: fair Judgment: fair Objective Labs 08/14/22 04:33 08/14/22 04:33 Labs: Laboratory Results - last 24 hr 08/13/22 08/13/22 08/14/22 11:52 12:11 04:33 Corrected WBC 7.4 Uncorrected WBC Count 7.4 RBC 3.64 L Hgb 12.0 L Hct 35.4 L MCV 97.3 MCH 33.0 MCHC 33.9 RDW 13.5 Plt Count 121 L MPV 8.4 Neut % (Auto) 79.6 Lymph % (Auto) 7.8 Miner % (Auto) 11.4 Eos % (Auto) 1.0 Baso % (Auto) 0.2 Nucleat RBC Rel Count 0.1 Neut # (Auto) 5.9 Lymph # (Auto) 0.6 L Miner # (Auto) 0.8 Eos # (Auto) 0.1 Baso # (Auto) 0.0 PHA Creatinine Clear Sodium Potassium Chloride Carbon Dioxide Anion Gap BUN Creatinine Est GFR ( Amer) Est GFR (Non-Af Amer) Glucose POC Glucose 94 POC Glucose Comment Glu2: cleaned meter Calcium Albumin 3.0 L 08/14/22 08/14/22 04:33 08:13 Corrected WBC Uncorrected WBC Count RBC Hgb Hct MCV MCH MCHC RDW Plt Count MPV Neut % (Auto) Lymph % (Auto) Miner % (Auto) Eos % (Auto) Baso % (Auto) Nucleat RBC Rel Count Neut # (Auto) Lymph # (Auto) Miner # (Auto) Eos # (Auto) Baso # (Auto) PHA Creatinine Clear 11.49 Sodium 140 Potassium 3.9 Chloride 109 Carbon Dioxide 21.9 L Anion Gap 13.0 BUN 61 H Creatinine 6.60 H D Est GFR ( Amer) 10 Est GFR (Non-Af Amer) 8 Glucose 140 H POC Glucose 175 POC Glucose Comment Glu2: cleaned meter Calcium 7.3 L Albumin A&P - Cardiology (1) Preoperative cardiovascular examination: Code(s): Z01.810 - Encounter for preprocedural cardiovascular examination Status: Acute Plan: Recommendations: 1. Maintain aspirin 81 mg daily 2. Maintain atorvastatin 40 mg daily 3. Maintain beta-blockade with metoprolol tartrate 50 mg twice daily 4. Maintain clinical euvolemia with as needed dialysis now following ureteral stent placement. 5. With the continuing favorable clinical evolution it would appear that the patient would likely be ready for discharge to home tomorrow. We want to make sure that he has follow-up in [facility] within 4 weeks of discharge. (2) CAD (coronary artery disease): Assessment/Problem Details: Stable/quiescent. No ischemic complications with yesterday's urological procedure. Code(s): I25.10 - Atherosclerotic heart disease of [place] coronary artery without angina pectoris Status: Acute Plan: Medical recommendations as above. Plan Thank you very much for this kind consultation and for allowing us to participate in the care of this very pleasant patient Time spent with patient Time Spent With Patient (min): 30 Documented By: Cade Alvarez MD 08/14/22 1118 Signed By: <Electronically signed by Cade Alvarez MD> 08/14/22 [address] [facility] Work Phone: [phone]) [phone] Progress note Author Hiral Interiano [facility] August 13, 2022 3:09pm Note Date/Time August 13, 2022 3:02pm [facility] [address] [place] [address] Hospitalist Progress Note Signed Patient: Victorino Smyth MR#: [id number] : 1940 Acct:[id number] Age/Sex: 82 / M Adm Date: 3 Loc: 4N Room: [id number] Type: ADM IN Attending Dr: Hiral Interiano MD Copies to: ~ Date of Service: 08/13/2022 Subjective Subjective Narrative: Patient examined at bedside in the ICU with no overnight event. He denies having right flank pain or chest pain as well. Yesterday underwent hemodialysis. Noted to have slight oozing of blood at the dialysis catheter site on the right chest wall. He did undergo cystoscopy with placement of right double-J stent without any complication. Exam Physical Exam Vital Signs: Temp Pulse Resp BP Pulse Ox O2 Del Method O2 Flow Rate 98.2 F 70 16 144/70 H 94 L Room Air 8 08/13/22 04:00 08/13/22 13:25 08/13/22 13:25 08/13/22 13:25 08/13/22 13:25 08/13/22 13:25 08/13/22 13:10 Const Orientation: alert, awake and oriented x3 Resp Effort & Inspection: normal respiratory effort and able to speak in complete sentences Auscultation: no rales, no rhonchi and no wheezes Cardio Rate: regular rate Rhythm: regular rhythm Heart Sounds: S1 normal and S2 normal GI Palpation: soft, not firm, no guarding and nontender Auscultation: normal bowel sounds Neuro General: patient alert, patient awake, patient oriented x3, moves all extremities and no focal motor deficits Cranial Nerves: CN's II-XII intact bilaterally Cognition: normal cognition Speech: speech normal Motor: muscle tone normal throughout and strength 5/5 throughout Sensory Exam: no sensory deficits noted Extrem General: no calf tenderness and edema (Trace) Laterality: bilaterally Severity: 1+ Objective Lab Results 08/13/22 04:28 08/13/22 05:25 Meds Allergies and Active Meds Allergies Penicillins Allergy (Verified 06/28/19 17:24) Hives Active Meds: Active Medications Generic Name Dose Route Start Last Admin Trade Name Freq PRN Reason Stop Dose Admin Acetaminophen 650 mg 08/11/22 13:41 Acetaminophen 325 Mg Tablet PO 08/11/23 13:40 Q6HR PRN Pain Scale 1 - 3 or fever Aspirin 81 mg 08/12/22 09:00 08/13/22 08:44 Aspirin 81 Mg Tablet. PO 08/12/23 08:59 Not Given DAILY MAURICIO Atorvastatin Calcium 40 mg 08/11/22 22:00 08/12/22 21:07 Atorvastatin 40 Mg Tablet PO 08/11/23 21:59 40 mg HS MAURICIO Administration Dextrose 0 gm 08/11/22 14:02 Dextrose 50% In Water 25 Gm/50 Ml Syringe IV-PUSH 08/11/23 14:01 PRN PRN Hypoglycemia Glucose 0 gm 08/11/22 14:02 Dextrose 40% Gel 15 Gm Tube PO 08/11/23 14:01 PRN PRN Hypoglycemia Guaifenesin 1,200 mg 08/12/22 21:00 08/13/22 08:45 Guaifenesin 600 Mg Tab.Er.12h PO 08/12/23 20:59 Not Given BID MAURICIO Heparin Sodium (Porcine) 0 unit 08/11/22 14:20 08/11/22 16:53 Heparin 10,000 Unit/10 Ml Vial IV 08/11/23 14:19 10,000 unit PRN PRN Administration Dialysis Heparin Sodium (Porcine) 2,200 unit 08/11/22 18:45 08/12/22 10:25 Heparin 10,000 Unit/10 Ml Vial IV 08/19/23 18:44 2,200 unit PRN PRN Administration Dialysis Heparin Sodium (Porcine) 5,000 unit 08/12/22 22:00 08/13/22 14:37 Heparin 5,000 Unit/Ml Vial SUBCUT 08/12/23 21:59 5,000 unit Q8HR MAURICIO Administration Hydralazine HCl 10 mg 08/11/22 13:41 08/12/22 23:04 Hydralazine 20 Mg/Ml Vial IV-PUSH 08/11/23 13:40 10 mg Q4H PRN Administration Hypertension Ceftriaxone Sodium 1 gm in 50 mls @ 100 mls/hr 08/11/22 14:15 08/12/22 16:24 Rocephin IV 100 mls/hr Q24H MAURICIO Administration Azithromycin 500 mg in 250 mls @ 250 mls/hr 08/11/22 14:15 08/13/22 14:40 Zithromax IV 250 mls/hr Q24H MAURICIO Administration Sodium Chloride 1,000 mls @ 0 mls/hr 08/11/22 14:20 08/12/22 12:38 0.9% Sodium Chloride 1,000 Ml MISCELLANE 08/11/23 14:19 Infused .Q0M PRN Infusion Dialysis As Directed Insulin Aspart 0 units 08/11/22 17:00 08/13/22 12:37 Insulin Aspart 300 Units/3 Ml Insuln.Pen SUBCUT 08/11/23 16:59 Not Given TID.WM.HS MAURICIO Protocol Insulin Glargine 5 units 08/13/22 09:00 08/13/22 08:45 Insulin Glargine 300 Units/3 Ml Insuln.Pen SUBCUT 08/13/23 08:59 Not Given DAILY MAURICIO Metoprolol Tartrate 50 mg 08/11/22 21:00 08/13/22 08:45 Metoprolol Tartrate 50 Mg Tablet PO 08/11/23 20:59 50 mg BID MAURICIO Administration Nitroglycerin 0.4 mg 08/11/22 14:02 Nitroglycerin 0.4 Mg Tab.Subl SUBLINGUAL 08/11/23 14:01 Q5M PRN Chest Pain Promethazine HCl 12.5 mg 08/12/22 21:10 08/13/22 13:50 Promethazine 25 Mg/Ml Vial IV-PUSH 08/12/23 21:14 12.5 mg Q6H PRN Administration Nausea/Vomiting Simethicone 80 mg 08/12/22 21:07 08/13/22 00:46 Simethicone 80 Mg Tab.Chew PO 08/12/23 21:59 80 mg TID PRN Administration Flatulence Sodium Chloride 0 ml 08/11/22 14:20 08/12/22 23:05 Sodium Chloride 0.9 % 10 Ml Syringe IV-PUSH 08/11/23 14:19 10 ml PRN PRN Administration Flush Sodium Chloride 0 ml 08/11/22 15:45 08/12/22 10:25 Sodium Chloride 0.9 % 10 Ml Syringe IV-PUSH 08/11/23 15:44 40 ml PRN PRN Administration Flush A&P - Hospitalist Assessment/Plan (1) Acute kidney injury superimposed on chronic kidney disease: Plan: Patient has been started on hemodialysis due to acute kidney injury likely from obstructive uropathy. He already has atrophic left kidney on imaging. Nephrology on consult regarding management of acute kidney injury. Acidosis hasresolved. Avoid nephrotoxic medications. (2) Obstructive nephropathy: Plan: Appreciate urology consultation and patient underwent cystoscopy with placement of right ureteral stent without any complication. (3) Hyperkalemia: Plan: Resolved after hemodialysis. (4) Diabetes: Plan: Blood glucose better controlled. His A1c level came back at 9 suggesting poorlycontrolled diabetes. Hold oral hypoglycemic agent and continue basal insulin with sliding scale coverage. Titrate dose of basal insulin depending upon his blood glucose level. (5) CAD (coronary artery disease): Plan: No significant elevation in troponin with EKG negative for acute ischemic changes. Appreciate cardiology consultation for preoperative evaluation has been cleared for surgical intervention if required. Continue aspirin, statin and beta-char[place]. He denies further chest pain. (6) Hydronephrosis with ureteral calculus: (7) Metabolic acidosis: Plan: Improved with hemodialysis. Plan Patient was also started on IV antibiotic given his complaint of productive cough and x-ray at the outside facility concerning for possible pneumonia. He has not been able to provide sputum sample and cough has improved. Urine culture growing staph epidermidis. We will switch azithromycin to doxycycline. Documented By: Hiral Interiano MD 08/13/22 1501 Signed By: <Electronically signed by Hiral Interiano MD> 08/13/22 150[address] [facility] Work Phone: 1(128) 869-643902-17-2023 Progress note Author Alicia Perea [facility] August 13, 2022 11:29am Note Date/Time August 13, 2022 11:25am [facility] [address] [place] [address] Nephrology Progress Note Signed Patient: Victorino Smyth MR#: [id number] : 1940 Acct:[id number] Age/Sex: 82 / M Adm Date: 3 Loc: Room: [address] [place] [address] Type: ADM IN Attending Dr: Hiral Interiano MD Copies to: ~ Date of Service: 08/13/2022 Subjective Subjective Narrative: This is a 82-year-old male with a medical history of coronary artery disease s/pPCI, nephrolithiasis, CKD, diabetes mellitus, hypertension, dyslipidemia was presented to the emergency room of [facility] for generalized weakness and low urine output. On evaluation emergency room patient was found to have a life- threatening hyperkalemia with serum potassium 7 mmol/L, acute kidney injurywith elevated serum creatinine 17.8 mg/dL, metabolic acidosis serum bicarbonate 13.5 mmol/L. He was given insulin D50 calcium gluconate in the [place] emergency room. He had a CAT scan abdomen pelvis done which showed obstructive kidney stones in the right UPJ and total atrophy of the left kidney. Case was discussed with the on-call urologist Dr. Olivares and recommended patient needs to be n.p.o. for surgical intervention. He was transferred to [facility] for further care. Patient is history of CKD due to the longstanding DM, HTN and recurrent KELSEA with baseline serum creatinine 1.4 to 1.6 mg/dL. He follows in my office for his CKD care. [facility] had[facility] labs done which showed persistent hyperkalemia, metabolic acidosis and hyperglycemia. His surgery was canceled due to his profound hyperkalemia and metabolic acidosis. Nephrology is consulted for KELSEA on CKD management. Interval history Patient was seen and examined at bedside and case was discussed with the bedsideRN. Bedside RN reported patient had a hallucination last night. Patient this morning appears to have a better mental status. He is feeling better denies anychest pain palpitation cough nausea, vomiting, shortness of breath. He is scheduled for possible cystoscopy this afternoon. Exam Physical Exam Vital Signs: Temp Pulse Resp BP Pulse Ox O2 Del Method O2 Flow Rate 98.2 F 75 20 143/66 H 96 Nasal Cannula 3 08/13/22 04:00 08/13/22 06:00 08/13/22 06:00 08/13/22 06:00 08/13/22 06:00 08/13/22 07:33 08/13/22 07:33 Narrative: General: Appears comfortable and not in distress Heart: S1-S2, no rub Lung: Bilateral air entry, no wheezing or crackles Abdomen: Soft, positive bowel sounds Extremities: Trace edema, no cyanosis Head: Atraumatic, normocephalic Ear: No gross hearing Deficit or external ear redness Eyes: No pallor or redness Neck: No JVD or visible mass Skin: No rashes or bruises CORE STRIPPER: Awake,Alert, following simple command Musculoskeletal: No joint swelling or limitation of movement Psychiatric: Cooperative, normal mood and affect Objective Intake and Output I&O: Intake & Output 08/10/22 08/11/22 08/12/22 08/13/22 23:59 23:59 23:59 23:59 Intake Total 800 / 800 1200 / 1200 0 / 0 Output Total 1508 / 1508 2010 Balance -708 / -708 -811 / -811 0 / 0 Weight 118.2 kg 118.7 kg 117.9 kg Meds and Allergies Meds: Active Medications Acetaminophen (Acetaminophen 325 Mg Tablet) 650 mg PO Q6HR PRN PRN Reason: Pain Scale 1 - 3 or fever Stop: 08/11/23 13:40 Aspirin (Aspirin 81 Mg Tablet.Dr) 81 mg PO DAILY [facility] Stop: 08/12/23 08:59 Last Admin: 08/13/22 08:44 Dose: Not Given Atorvastatin Calcium (Atorvastatin 40 Mg Tablet) 40 mg PO HS [facility] Stop: 08/11/23 21:59 Last Admin: 08/12/22 21:07 Dose: 40 mg Dextrose (Dextrose 50% In Water 25 Gm/50 Ml Syringe) 0 gm IV-PUSH PRN PRN PRN Reason: Hypoglycemia Stop: 08/11/23 14:01 Glucose (Dextrose 40% Gel 15 Gm Tube) 0 gm PO PRN PRN PRN Reason: Hypoglycemia Stop: 08/11/23 14:01 Guaifenesin (Guaifenesin 600 Mg Tab.Er.12h) 1,200 mg PO BID [facility] Stop: 08/12/23 20:59 Last Admin: 08/13/22 08:45 Dose: Not Given Heparin Sodium (Porcine) (Heparin 10,000 Unit/10 Ml Vial) 0 unit IV PRN PRN PRN Reason: Dialysis Stop: 08/11/23 14:19 Last Admin: 08/11/22 16:53 Dose: 10,000 unit Heparin Sodium (Porcine) (Heparin 10,000 Unit/10 Ml Vial) 2,200 unit IV PRN PRN PRN Reason: Dialysis Stop: 08/19/23 18:44 Last Admin: 08/12/22 10:25 Dose: 2,200 unit Heparin Sodium (Porcine) (Heparin 5,000 Unit/Ml Vial) 5,000 unit SUBCUT Q8HR MAURICIO Stop: 08/12/23 21:59 Last Admin: 08/13/22 07:08 Dose: 5,000 unit Hydralazine HCl (Hydralazine 20 Mg/Ml Vial) 10 mg IV-PUSH Q4H PRN PRN Reason: Hypertension Stop: 08/11/23 13:40 Last Admin: 08/12/22 23:04 Dose: 10 mg Ceftriaxone Sodium (Rocephin) 1 gm in 50 mls @ 100 mls/hr IV Q24H [facility] Last Admin: 08/12/22 16:24 Dose: 100 mls/hr Azithromycin (Zithromax) 500 mg in 250 mls @ 250 mls/hr IV Q24H [facility] Last Admin: 08/12/22 15:06 Dose: 250 mls/hr Sodium Chloride (0.9% Sodium Chloride 1,000 Ml) 1,000 mls @ 0 mls/hr MISCELLANE.Q0M PRN PRN Reason: Dialysis Stop: 08/11/23 14:19 Last Infusion: 08/12/22 12:38 Dose: Infused Insulin Aspart (Insulin Aspart 300 Units/3 Ml Insuln.Pen) 0 units SUBCUT TID..[facility]; Protocol Stop: 08/11/23 16:59 Last Admin: 08/13/22 08:44 Dose: Not Given Insulin Glargine (Insulin Glargine 300 Units/3 Ml Insuln.Pen) 5 units SUBCUT DAILY [facility] Stop: 08/13/23 08:59 Last Admin: 08/13/22 08:45 Dose: Not Given Metoprolol Tartrate (Metoprolol Tartrate 50 Mg Tablet) 50 mg PO BID [facility] Stop: 08/11/23 20:59 Last Admin: 08/13/22 08:45 Dose: 50 mg Nitroglycerin (Nitroglycerin 0.4 Mg Tab.Subl) 0.4 mg SUBLINGUAL Q5M PRN PRN Reason: Chest Pain Stop: 08/11/23 14:01 Promethazine HCl (Promethazine 25 Mg/Ml Vial) 12.5 mg IV-PUSH Q6H PRN PRN Reason: Nausea/Vomiting Stop: 08/12/23 21:14 Last Admin: 08/12/22 23:04 Dose: 12.5 mg Simethicone (Simethicone 80 Mg Tab.Chew) 80 mg PO TID PRN PRN Reason: Flatulence Stop: 08/12/23 21:59 Last Admin: 08/13/22 00:46 Dose: 80 mg Sodium Chloride (Sodium Chloride 0.9 % 10 Ml Syringe) 0 ml IV-PUSH PRN PRN PRN Reason: Flush Stop: 08/11/23 14:19 Last Admin: 08/12/22 23:05 Dose: 10 ml Sodium Chloride (Sodium Chloride 0.9 % 10 Ml Syringe) 0 ml IV-PUSH PRN PRN PRN Reason: Flush Stop: 08/11/23 15:44 Last Admin: 08/12/22 10:25 Dose: 40 ml Allergies Penicillins Allergy (Verified 06/28/19 17:24) Hives Results Labs 08/13/22 04:28 08/13/22 05:25 Labs: 08/13/22 08/13/22 04:28 05:25 BUN Cancelled 72 H D Creatinine Cancelled 10.74 H D Radiology Impressions Impressions - last 24 hours: Any impression(s) listed above is documentation that was entered by the reading physician into a diagnostic report(s) for Victorino Smyth. I have reviewed the report(s) and am incorporating any findings in the treatment plan of this patient where applicable. A&P - Nephrology Assessment/Plan (1) Acute kidney injury superimposed on chronic kidney disease: Plan: He has an acute kidney injury due to the obstructive uropathy of right kidney. He has left renal atrophy. (2) Hyperkalemia: Plan: He has hyperkalemia likely due to acute kidney injury metabolic acidosis and hyperglycemia. His potassium is back to normal with dialysis. (3) Metabolic acidosis: Plan: He has critical metabolic acidosis likely due to the KELSEA on CKD and hyperglycemia. His metabolic acidosis has improved with dialysis. (4) Hydronephrosis with ureteral calculus: Plan: He has obstructive uropathy of the right kidney. Urology has been consulted plan to do ureteral stent placement once he is medically stable. (5) CKD (chronic kidney disease) stage 3, GFR 30-59 ml/min: Plan: He has a longstanding CKD due to the DM, HTN and recurrent KELSEA due to the obstructive uropathy. His baseline serum creatinine is 1.4 to 1.6 mg/dL. (6) Type 2 diabetes mellitus with diabetic chronic kidney disease: Plan: He has known insulin-dependent type 2 diabetes mellitus and was taking sitagliptin and glimepiride at home (7) Hypertensive chronic kidney disease with stage 1 through stage 4 chronic kidney disease, or unspecified chronic kidney disease: Plan: Blood pressure is high. He is appears to be mildly hypervolemic. Plan * No need for dialysis today. We will continue to assess its needs on regular basis. * Continue DM management as per the primary hospitalist team. The goal of blood sugars between 100 to 150 mg/dL. * Continue management of the obstructive uropathy as per urology. * Continue home dose of the metoprolol * Check renal function daily monitor input output Documented By: Alicia Perae MD 08/13/22 1124 Signed By: <Electronically signed by Alicia Perea MD> 08/13/22 [address] [facility] Work Phone: 1([phone] 484-871402-17-2023 Progress note Author Cade Alvarez [facility] August 13, 2022 9:40am Note Date/Time August 13, 2022 9:35am [facility] [address] [place] [address] Cardiology Progress Note Signed Patient: Victorino Smyth MR#: [id number] : 1940 Acct:[id number] Age/Sex: 82 / M Adm Date: 3 Loc: Room: [address] [place] [address] Type: ADM IN Attending Dr: Hiral Interiano MD Copies to: ~ Date of Service: 08/13/2022 Subjective Principal diagnosis: Acute kidney injury requiring dialysis, obstructive uropathy. Stable CHD. Interval history: Mr. Smyth is resting comfortably on my evaluation this morning. He denies chest pain chest pressure or other anginal symptoms. He has no dyspnea at rest nor any resting orthopnea. He feels his breathing is back to its baseline. He dialyzed again yesterday and over the last 48 hours is net out approximately 2 L. Resting heart rate is in the low 70s. Patient is still hypertensive with systolic blood pressures in the 1 60-1 70 range. Timing for surgical intervention on the patient's obstructive uropathy is still in question, but maybe this afternoon. No new complaints or issues from a cardiac standpoint. Exam Physical Exam Vital Signs: Temp Pulse Resp BP Pulse Ox O2 Del Method O2 Flow Rate 98.2 F 75 20 143/66 H 96 Nasal Cannula 3 02/17/23 04:00 08/13/22 06:00 08/13/22 06:00 08/13/22 06:00 08/13/22 06:00 08/13/22 07:33 08/13/22 07:33 Const General: cooperative, no acute distress and ill appearing Nutritional Appearance: obese Orientation: alert, awake and oriented x3 HEENT Head: normocephalic and atraumatic Face and sinus: face symmetric Mouth: moist mucous membranes Teeth and gingiva: fair dentition Eyes Conjunctivae: conjunctivae normal Sclera: sclerae normal Pupils: PERRL and accommodation normal EOM: EOM intact bilaterally Direct ophthalmoscopy: no photophobia Neck Neck: no lymphadenopathy and supple Neck mass: No Thyroid: thyroid normal Carotids: normal carotid upstroke Lymphatic: no lymphadenopathy noted Chest Chest palpation & inspection: normal inspection of the chest Resp Effort & Inspection: normal respiratory effort, able to speak in complete sentences, symmetric chest movement and abnormal respiratory pattern Auscultation: diminished lung sounds Cardio Jugular venous pressure: no JVD and JVD Palpation: abnormal PMI, heave and palpable S4 Rate: regular rate Rhythm: regular rhythm Heart Sounds: S1 normal, S2 normal and gallop S4 gallop Pulses: radial pulses present and femoral pulses present GI Palpation: soft and no hepatosplenomegaly Auscultation: normal bowel sounds Skin General: no rashes or lesions noted Trauma: no lacerations or abrasions Wounds: no wounds Neuro General: patient alert, patient awake, patient oriented x3, moves all extremities and no focal motor deficits Cranial Nerves: CN's II-XII intact bilaterally Cognition: normal cognition Speech: speech normal Motor: muscle tone normal throughout Sensory Exam: no sensory deficits noted Extrem General: edema Psych Mood: congruent mood Affect: normal affect Speech and Movement: speech and movement normal Attitude: cooperative Thought Process: normal Insight: fair Judgment: fair Objective Labs 08/13/22 04:28 08/13/22 05:25 Labs: Laboratory Results - last 24 hr 08/11/22 08/12/22 08/12/22 16:57 13:21 15:39 Corrected WBC Uncorrected WBC Count RBC Hgb Hct MCV MCH MCHC RDW Plt Count MPV Neut % (Auto) Lymph % (Auto) Miner % (Auto) Eos % (Auto) Baso % (Auto) Nucleat RBC Rel Count Neut # (Auto) Lymph # (Auto) Miner # (Auto) Eos # (Auto) Baso # (Auto) PHA Creatinine Clear Sodium Potassium Chloride Carbon Dioxide Anion Gap BUN Creatinine Est GFR ( Amer) Est GFR (Non-Af Amer) Glucose POC Glucose 91 96 Calcium Hepatitis A IgM Ab Negative Hep Bs Antigen Negative Hep B Core IgM Ab Negative Hepatitis C Ab (EIA) Non reactive Hepatitis C RNA Quant N/A HCV RNA (PCR) IU/mL N/A HCV RNA PCR picture copyist log10 N/A Hepatitis C Interp 08/12/22 08/12/22 08/13/22 19:37 21:06 04:28 Corrected WBC 9.9 Uncorrected WBC Count 9.9 RBC 3.54 L Hgb 11.6 L Hct 34.2 L MCV 96.5 MCH 32.9 MCHC 34.1 RDW 13.7 Plt Count 129 L MPV 8.7 Neut % (Auto) 79.2 Lymph % (Auto) 9.6 Miner % (Auto) 9.8 Eos % (Auto) 0.9 Baso % (Auto) 0.5 Nucleat RBC Rel Count 0.1 Neut # (Auto) 7.8 H Lymph # (Auto) 0.9 L Miner # (Auto) 1.0 H Eos # (Auto) 0.1 Baso # (Auto) 0.0 PHA Creatinine Clear Sodium Potassium Chloride Carbon Dioxide Anion Gap BUN Creatinine Est GFR ( Amer) Est GFR (Non-Af Amer) Glucose POC Glucose 111 114 Calcium Hepatitis A IgM Ab Hep Bs Antigen Hep B Core IgM Ab Hepatitis C Ab (EIA) Hepatitis C RNA Quant HCV RNA (PCR) IU/mL HCV RNA PCR picture copyist log10 Hepatitis C Interp 08/13/22 08/13/22 04:28 05:25 Corrected WBC Uncorrected WBC Count RBC Hgb Hct MCV MCH MCHC RDW Plt Count MPV Neut % (Auto) Lymph % (Auto) Miner % (Auto) Eos % (Auto) Baso % (Auto) Nucleat RBC Rel Count Neut # (Auto) Lymph # (Auto) Miner # (Auto) Eos # (Auto) Baso # (Auto) PHA Creatinine Clear Cancelled 7.06 Sodium Cancelled 135 L Potassium Cancelled 4.9 Chloride Cancelled 97 Carbon Dioxide Cancelled 24.5 Anion Gap Cancelled 18.4 H BUN Cancelled 72 H D Creatinine Cancelled 10.74 H D Est GFR ( Amer) Cancelled 6 Est GFR (Non-Af Amer) Cancelled 5 Glucose Cancelled 85 POC Glucose Calcium Cancelled 7.0 L Hepatitis A IgM Ab Hep Bs Antigen Hep B Core IgM Ab Hepatitis C Ab (EIA) Hepatitis C RNA Quant HCV RNA (PCR) IU/mL HCV RNA PCR picture copyist log10 Hepatitis C Interp A&P - Cardiology (1) Preoperative cardiovascular examination: Assessment/Problem Details: Preoperative cardiovascular examination: ? ? ? Risk stratification predictors: 1.? High risk surgery: 0 2.? History of ischemic heart disease: +1 3. History of cerebrovascular disease: 0 4. Insulin requiring diabetes mellitus: 0 Preop serum creatinine greater than 2.0 mg/dL: +1 Total Dinh risk index score: Positive to Risk of major perioperative cardiac events 2.4% = intermediate risk Code(s): Z01.810 - Encounter for preprocedural cardiovascular examination Status: Acute Plan: Recommendations: 1. Maintain aspirin 81 mg daily 2. Maintain atorvastatin 40 mg daily 3. Maintain beta-blockade with metoprolol tartrate 50 mg twice daily 4. Now appears that the patient is clinically euvolemic and well compensated from a volume standpoint after 2 sessions of dialysis and net removal of approximately 2 L of fluid. Clinically it would appear that the patient is presently optimized from a hemodynamic standpoint to move forward with surgical intervention for his obstructive uropathy. Recommend moving forward with the surgical procedure as soon as possible per Dr. Olivares of the urology service. (2) CAD (coronary artery disease): Code(s): I25.10 - Atherosclerotic heart disease of [place] coronary artery without angina pectoris Status: Acute Plan: Preoperative recommendations as above. Plan Thank you very much for this kind consultation and for allowing us to participate in the care of this very pleasant patient Time spent with patient Time Spent With Patient (min): 30 Documented By: Cade Alvarez MD 08/13/22 0934 Signed By: <Electronically signed by Cade Alvarez MD> 08/13/22 0940 [facility] Work Phone: 1(219) 886-351702-16-2023 Progress note Author Hiral Interiano [facility] August 12, 2022 4:04pm Note Date/Time August 12, 2022 4:04pm [facility] [address] [place] [address] Hospitalist Progress Note Signed Patient: Victorino Smyth MR#: [id number] : 1940 Acct:[id number] Age/Sex: 82 / M Adm Date: 3 Loc: Room: [address] [place] [address] Type: ADM IN Attending Dr: Hiral Interiano MD Copies to: ~ Date of Service: 08/12/2022 Subjective Subjective Narrative: Patient examined while getting hemodialysis and was resting comfortably. He denies having chest pain or significant right flank pain. Yesterday he underwent emergent dialysis catheter placement and has been started on hemodialysis with improvement in potassium and metabolic acidosis. He does not appear as tachypneic but noted to have moist cough. Appreciate nephrology, urology and cardiology consultations. Case was discussed in the ICU with his as well regarding his critical condition and also discussed CODE STATUS. Patient does not want to be in prolonged resuscitation but does want to try at least once to be resuscitated if develops cardiac arrest. Exam Physical Exam Vital Signs: Temp Pulse Resp BP Pulse Ox O2 Del Method O2 Flow Rate 98.2 F 88 18 174/79 H 94 L Nasal Cannula 2 08/12/22 14:21 08/12/22 15:00 08/12/22 15:00 08/12/22 15:00 08/12/22 15:00 08/12/22 15:00 08/12/22 15:00 Const Orientation: alert, awake and oriented x3 Resp Effort & Inspection: normal respiratory effort and able to speak in complete sentences Auscultation: no rales, no rhonchi and no wheezes Cardio Rate: regular rate Rhythm: regular rhythm Heart Sounds: S1 normal and S2 normal GI Palpation: soft, not firm, no guarding and nontender Auscultation: normal bowel sounds Neuro General: patient alert, patient awake, patient oriented x3, moves all extremities and no focal motor deficits Cranial Nerves: CN's II-XII intact bilaterally Cognition: normal cognition Speech: speech normal Motor: muscle tone normal throughout and strength 5/5 throughout Sensory Exam: no sensory deficits noted Extrem General: no clubbing, cyanosis or edema and no calf tenderness Objective Lab Results 08/12/22 03:51 08/12/22 03:51 Meds Allergies and Active Meds Allergies Penicillins Allergy (Verified 06/28/19 17:24) Hives Active Meds: Active Medications Generic Name Dose Route Start Last Admin Trade Name Borisq PRN Reason Stop Dose Admin Acetaminophen 650 mg 08/11/22 13:41 Acetaminophen 325 Mg Tablet PO 08/11/23 13:40 Q6HR PRN Pain Scale 1 - 3 or fever Aspirin 81 mg 08/12/22 09:00 08/12/22 08:20 Aspirin 81 Mg Tablet. PO 08/12/23 08:59 81 mg DAILY MAURICIO Administration Atorvastatin Calcium 40 mg 08/11/22 22:00 08/11/22 21:08 Atorvastatin 40 Mg Tablet PO 08/11/23 21:59 40 mg HS MAURICIO Administration Dextrose 0 gm 08/11/22 14:02 Dextrose 50% In Water 25 Gm/50 Ml Syringe IV-PUSH 08/11/23 14:01 PRN PRN Hypoglycemia Glucose 0 gm 08/11/22 14:02 Dextrose 40% Gel 15 Gm Tube PO 08/11/23 14:01 PRN PRN Hypoglycemia Heparin Sodium (Porcine) 0 unit 08/11/22 14:20 08/11/22 16:53 Heparin 10,000 Unit/10 Ml Vial IV 08/11/23 14:19 10,000 unit PRN PRN Administration Dialysis Heparin Sodium (Porcine) 2,200 unit 08/11/22 18:45 08/12/22 10:25 Heparin 10,000 Unit/10 Ml Vial IV 08/19/23 18:44 2,200 unit PRN PRN Administration Dialysis Hydralazine HCl 10 mg 08/11/22 13:41 08/11/22 19:26 Hydralazine 20 Mg/Ml Vial IV-PUSH 08/11/23 13:40 10 mg Q4H PRN Administration Hypertension Ceftriaxone Sodium 1 gm in 50 mls @ 100 mls/hr 08/11/22 14:08/11/22 21:49 Rocephin IV Infused Q24H [facility] Infusion Azithromycin 500 mg in 250 mls @ 250 mls/hr 08/11/22 14:15 08/12/22 15:06 Zithromax IV 250 mls/hr Q24H [facility] Administration Sodium Chloride 1,000 mls @ 0 mls/hr 08/11/22 14:20 08/12/22 12:38 0.9% Sodium Chloride 1,000 Ml MISCELLANE 08/11/23 14:19 Infused .Q0M PRN Infusion Dialysis As Directed Insulin Aspart 0 units 08/11/22 17:00 08/12/22 14:56 Insulin Aspart 300 Units/3 Ml Insuln.Pen SUBCUT 08/11/23 16:59 Not Given TID.WM.HS [facility] Protocol Metoprolol Tartrate 50 mg 08/11/22 21:00 08/12/22 08:20 Metoprolol Tartrate 50 Mg Tablet PO 08/11/23 20:59 50 mg BID MAURICIO Administration Nitroglycerin 0.4 mg 08/11/22 14:02 Nitroglycerin 0.4 Mg Tab.Subl SUBLINGUAL 08/11/23 14:01 Q5M PRN Chest Pain Sodium Chloride 0 ml 08/11/22 14:20 Sodium Chloride 0.9 % 10 Ml Syringe IV-PUSH 08/11/23 14:19 PRN PRN Flush Sodium Chloride 0 ml 08/11/22 15:45 08/12/22 10:25 Sodium Chloride 0.9 % 10 Ml Syringe IV-PUSH 08/11/23 15:44 40 ml PRN PRN Administration Flush A&P - Hospitalist Assessment/Plan (1) Acute kidney injury superimposed on chronic kidney disease: Plan: Patient was transferred from [place] ER when found to have acute kidney injury on chronic renal failure likely from obstructive uropathy as noted to have stonein the right ureter with atrophic left kidney. Patient underwent emergent hemodialysis yesterday due to significant hyperkalemia and metabolic acidosis. Currently receiving hemodialysis. (2) Obstructive nephropathy: Plan: Urology has been consulted regarding obstructive taking right ureteral stone. (3) Hyperkalemia: Plan: Resolved after hemodialysis. (4) Diabetes: Plan: Blood glucose better controlled. His A1c level came back at 9 suggesting poorlycontrolled diabetes. I will start him on basal insulin along with sliding scalecoverage. Hold sulfonylurea given his renal failure. (5) CAD (coronary artery disease): Plan: No significant elevation in troponin with EKG negative for acute ischemic changes. Appreciate cardiology consultation for preoperative evaluation has been cleared for surgical intervention if required. Continue aspirin, statin and beta-[place]. He denies further chest pain. (6) Hydronephrosis with ureteral calculus: (7) Metabolic acidosis: Plan: Improved with hemodialysis. Beta hydroxybutyrate level was 2.4 yesterday and marked acidosis due to acute kidney injury. Plan Patient requires ICU stay given acute renal failure requiring hemodialysis and presentation of severe hyperkalemia and metabolic acidosis. Documented By: Hiral Interiano MD 08/12/22 1556 Signed By: <Electronically signed by Hiral Interiano MD> 08/12/22 [address] [facility] Work Phone: [phone] Progress note Author Alicia Perea [facility] August 12, 2022 11:29am Note Date/Time August 12, 2022 11:24am [facility] [address] [place] [address] Nephrology Progress Note Signed Patient: Victorino Smyth MR#: [id number] : 1940 Acct:[id number] Age/Sex: 82 / M Adm Date: 3 Loc: Room: [address] [place] [address] Type: ADM IN Attending Dr: Hiral Interiano MD Copies to: ~ Date of Service: 08/12/2022 Subjective Subjective Narrative: This is a 82-year-old male with a medical history of coronary artery disease s/pPCI, nephrolithiasis, CKD, diabetes mellitus, hypertension, dyslipidemia was presented to the emergency room of [facility] for generalized weakness and low urine output. On evaluation emergency room patient was found to have a life- threatening hyperkalemia with serum potassium 7 mmol/L, acute kidney injurywith elevated serum creatinine 17.8 mg/dL, metabolic acidosis serum bicarbonate 13.5 mmol/L. He was given insulin D50 calcium gluconate in the [place] emergency room. He had a CAT scan abdomen pelvis done which showed obstructive kidney stones in the right UPJ and total atrophy of the left kidney. Case was discussed with the on-call urologist Dr. Olivares and recommended patient needs to be n.p.o. for surgical intervention. He was transferred to [facility] for further care. Patient is history of CKD due to the longstanding DM, HTN and recurrent KELSEA with baseline serum creatinine 1.4 to 1.6 mg/dL. He follows in my office for his CKD care. Patient after arrival at the [facility] hada repeat labs done which showed persistent hyperkalemia, metabolic acidosis and hyperglycemia. His surgery was canceled due to his profound hyperkalemia and metabolic acidosis. Nephrology is consulted for KELSEA on CKD management. Interval history Patient was seen and examined at bedside during dialysis. He is feeling better denies any chest pain palpitation cough nausea, vomiting, shortness of breath. He tolerated a full session of dialysis yesterday. Exam Physical Exam Vital Signs: Temp Pulse Resp BP Pulse Ox O2 Del Method O2 Flow Rate 98.4 F 72 18 157/78 H 94 L Room Air 2 08/12/22 10:10 08/12/22 11:00 08/12/22 10:10 08/12/22 11:00 08/12/22 10:10 08/12/22 10:10 08/12/22 09:00 Narrative: General: Appears comfortable and not in distress Heart: S1-S2, no rub Lung: Bilateral air entry, no wheezing or crackles Abdomen: Soft, positive bowel sounds Extremities: Trace edema, no cyanosis Head: Atraumatic, normocephalic Ear: No gross hearing Deficit or external ear redness Eyes: No pallor or redness Neck: No JVD or visible mass Skin: No rashes or bruises CORE STRIPPER: Awake,Alert, following simple command Musculoskeletal: No joint swelling or limitation of movement Psychiatric: Cooperative, normal mood and affect Objective Intake and Output I&O: Intake & Output 08/09/22 08/10/22 08/11/22 08/12/22 23:59 23:59 23:59 23:59 Intake Total 550 / 550 0 / 0 Output Total 1508 / 1508 300 / 300 Balance -958 / -958 -300 / -300 Weight 118.2 kg 118.7 kg Meds and Allergies Meds: Active Medications Acetaminophen (Acetaminophen 325 Mg Tablet) 650 mg PO Q6HR PRN PRN Reason: Pain Scale 1 - 3 or fever Stop: 08/11/23 13:40 Aspirin (Aspirin 81 Mg Tablet.) 81 mg PO DAILY MAURICIO Stop: 08/12/23 08:59 Last Admin: 08/12/22 08:20 Dose: 81 mg Atorvastatin Calcium (Atorvastatin 40 Mg Tablet) 40 mg PO HS MAURICIO Stop: 08/11/23 21:59 Last Admin: 08/11/22 21:08 Dose: 40 mg Dextrose (Dextrose 50% In Water 25 Gm/50 Ml Syringe) 0 gm IV-PUSH PRN PRN PRN Reason: Hypoglycemia Stop: 08/11/23 14:01 Glucose (Dextrose 40% Gel 15 Gm Tube) 0 gm PO PRN PRN PRN Reason: Hypoglycemia Stop: 08/11/23 14:01 Heparin Sodium (Porcine) (Heparin 10,000 Unit/10 Ml Vial) 0 unit IV PRN PRN PRN Reason: Dialysis Stop: 08/11/23 14:19 Last Admin: 08/11/22 16:53 Dose: 10,000 unit Heparin Sodium (Porcine) (Heparin 10,000 Unit/10 Ml Vial) 2,200 unit IV PRN PRN PRN Reason: Dialysis Stop: 08/19/23 18:44 Last Admin: 08/12/22 10:25 Dose: 2,200 unit Hydralazine HCl (Hydralazine 20 Mg/Ml Vial) 10 mg IV-PUSH Q4H PRN PRN Reason: Hypertension Stop: 08/11/23 13:40 Last Admin: 08/11/22 19:26 Dose: 10 mg Ceftriaxone Sodium (Rocephin) 1 gm in 50 mls @ 100 mls/hr IV Q24H [facility] Last Infusion: 08/11/22 21:49 Dose: Infused Azithromycin (Zithromax) 500 mg in 250 mls @ 250 mls/hr IV Q24H [facility] Last Admin: 08/11/22 16:00 Dose: 250 mls/hr Sodium Chloride (0.9% Sodium Chloride 1,000 Ml) 1,000 mls @ 0 mls/hr MISCELLANE.Q0M PRN PRN Reason: Dialysis Stop: 08/11/23 14:19 Last Admin: 08/12/22 10:24 Dose: 999 mls/hr Insulin Aspart (Insulin Aspart 300 Units/3 Ml Insuln.Pen) 0 units SUBCUT TID.[facility]; Protocol Stop: 08/11/23 16:59 Last Admin: 08/12/22 08:07 Dose: Not Given Metoprolol Tartrate (Metoprolol Tartrate 50 Mg Tablet) 50 mg PO BID [facility] Stop: 08/11/23 20:59 Last Admin: 08/12/22 08:20 Dose: 50 mg Nitroglycerin (Nitroglycerin 0.4 Mg Tab.Subl) 0.4 mg SUBLINGUAL Q5M PRN PRN Reason: Chest Pain Stop: 08/11/23 14:01 Sodium Chloride (Sodium Chloride 0.9 % 10 Ml Syringe) 0 ml IV-PUSH PRN PRN PRN Reason: Flush Stop: 08/11/23 14:19 Sodium Chloride (Sodium Chloride 0.9 % 10 Ml Syringe) 0 ml IV-PUSH PRN PRN PRN Reason: Flush Stop: 08/11/23 15:44 Last Admin: 08/12/22 10:25 Dose: 40 ml Allergies Penicillins Allergy (Verified 06/28/19 17:24) Hives Results Labs 08/12/22 03:51 08/12/22 03:51 Labs: 08/11/22 08/12/22 13:39 03:51 BUN 163 H 133 H D Creatinine 17.89 H 15.50 H D Radiology Impressions Impressions - last 24 hours: Impressions Chest X-Ray 08/11/22 15:45 IMPRESSION: No postprocedural pneumothorax. Impression dictated by: Rehan Fuentes M.D.08/11/2022 4:10 PM Dictation Location: [place] [address] Any impression(s) listed above is documentation that was entered by the reading physician into a diagnostic report(s) for Victorino Smyth. I have reviewed the report(s) and am incorporating any findings in the treatment plan of this patient where applicable. A&P - Nephrology Assessment/Plan (1) Acute kidney injury superimposed on chronic kidney disease: Plan: He has an acute kidney injury due to the obstructive uropathy of right kidney. He has left renal atrophy. (2) Hyperkalemia: Plan: He has hyperkalemia likely due to acute kidney injury metabolic acidosis and hyperglycemia. His potassium is back to normal with dialysis. (3) Metabolic acidosis: Plan: He has critical metabolic acidosis likely due to the KELSEA on CKD and hyperglycemia. His metabolic acidosis has improved with dialysis. (4) Hydronephrosis with ureteral calculus: Plan: He has obstructive uropathy of the right kidney. Urology has been consulted plan to do ureteral stent placement once he is medically stable. (5) CKD (chronic kidney disease) stage 3, GFR 30-59 ml/min: Plan: He has a longstanding CKD due to the DM, HTN and recurrent KELSEA due to the obstructive uropathy. His baseline serum creatinine is 1.4 to 1.6 mg/dL. (6) Type 2 diabetes mellitus with diabetic chronic kidney disease: Plan: He has known insulin-dependent type 2 diabetes mellitus and was taking sitagliptin and glimepiride at home (7) Hypertensive chronic kidney disease with stage 1 through stage 4 chronic kidney disease, or unspecified chronic kidney disease: Plan: Blood pressure is high. He is appears to be mildly hypervolemic. Plan * Hemodialysis today as ordered. * Continue DM management as per the primary hospitalist team. The goal of blood sugars between 100 to 150 mg/dL. * Continue management of the obstructive uropathy as per urology. * Continue home dose of the amlodipine. * Check renal function daily monitor input output * Documented By: Alicia Perea MD 08/12/221121 Signed By: <Electronically signed by Alicia Perea MD> 08/12/22 [address] [facility] Work Phone: [phone]) 924-358502-16-2023 Progress note Author Cade Alvarez [facility] August 12, 2022 10:04am Note Date/Time August 12, 2022 10:05am [facility] [address] [place] [address] Cardiology Progress Note Signed Patient: Victorino Smyth MR#: [id number] : 1940 Acct:[id number] Age/Sex: 82 / M Adm Date: 3 Loc: Room: [address] [place] [address] Type: ADM IN Attending Dr: Hiral Interiano MD Copies to: ~ Date of Service: 08/12/2022 Subjective Principal diagnosis: Acute kidney injury requiring dialysis, obstructive uropathy. Stable CHD. Interval history: Mr. Smyth is doing much better this morning after dialysis yesterday evening. His breathing is much more comfortable at rest. He still having some cough which itself will produce some localized side and rib tenderness. However he denies any chest pain chest pressure or other anginal symptoms. He is no longerorthopneic. Of note hemodialysis removed over 1-1/2 L of fluid yesterday. He tolerated this well without hemodynamic aberrancy. He has no new complaints presently. Exam Physical Exam Vital Signs: Temp Pulse Resp BP Pulse Ox O2 Del Method O2 Flow Rate 99.0 F 81 19 154/74 H 96 Room Air 2 08/12/22 08:00 08/12/22 08:00 08/12/22 08:00 08/12/22 08:00 08/12/22 08:00 08/12/22 08:00 08/12/22 08:00 Const General: cooperative, no acute distress and ill appearing Nutritional Appearance: obese Orientation: alert, awake and oriented x3 HEENT Head: normocephalic and atraumatic Face and sinus: face symmetric Mouth: moist mucous membranes Teeth and gingiva: fair dentition Eyes Conjunctivae: conjunctivae normal Sclera: sclerae normal Pupils: PERRL and accommodation normal EOM: EOM intact bilaterally Direct ophthalmoscopy: no photophobia Neck Neck: no lymphadenopathy and supple Neck mass: No Thyroid: thyroid normal Carotids: normal carotid upstroke Lymphatic: no lymphadenopathy noted Chest Chest palpation & inspection: normal inspection of the chest Resp Effort & Inspection: normal respiratory effort, able to speak in complete sentences and symmetric chest movement Cardio Jugular venous pressure: no JVD Palpation: abnormal PMI and palpable S4 Rate: regular rate Rhythm: regular rhythm Heart Sounds: S1 normal, S2 normal and gallop S4 gallop Pulses: radial pulses present and femoral pulses present GI Palpation: soft and no hepatosplenomegaly Auscultation: normal bowel sounds Skin General: no rashes or lesions noted Trauma: no lacerations or abrasions Wounds: no wounds Neuro General: patient alert, patient awake, patient oriented x3, moves all extremities and no focal motor deficits Cranial Nerves: CN's II-XII intact bilaterally Cognition: normal cognition Speech: speech normal Motor: muscle tone normal throughout Sensory Exam: no sensory deficits noted Psych Mood: congruent mood Affect: normal affect Speech and Movement: speech and movement normal Attitude: cooperative Thought Process: normal Insight: fair Judgment: fair Objective Labs 08/12/22 03:51 08/12/22 03:51 Labs: Laboratory Results - last 24 hr 08/11/22 08/11/22 08/11/22 13:39 13:39 13:39 Corrected WBC 9.1 Uncorrected WBC Count 9.1 RBC 3.85 L Hgb 12.5 L Hct 38.1 L MCV 99.0 MCH 32.5 MCHC 32.8 RDW 13.8 Plt Count 203 MPV 8.8 Neut % (Auto) N/A Lymph % (Auto) N/A Miner % (Auto) N/A Eos % (Auto) N/A Baso % (Auto) N/A Nucleat RBC Rel Count N/A Neut # (Auto) N/A Lymph # (Auto) N/A Miner # (Auto) N/A Eos # (Auto) N/A Baso # (Auto) N/A Band Neutrophils % 1 Lymphocytes % 5 L Monocytes % 1 L Segmented Neutrophils 94 H Platelet Estimate Normal Plt Morphology Comment Normal RBC Morphology N/A Poikilocytosis Slight Anisocytosis Slight Microcytosis Slight Crenated Cell Slight PT INR PHA Creatinine Clear 4.24 Sodium 131 L Potassium 7.4 H* Chloride 99 Carbon Dioxide 9.3 L Anion Gap 30.1 H BUN 163 H Creatinine 17.89 H Est GFR ( Amer) 3 Est GFR (Non-Af Amer) 3 Glucose 507 H* POC Glucose POC Glucose Comment Estimat Average Glucose Hemoglobin A1c Calcium 7.2 L Troponin I High Sens 16 B-Hydroxybutyrate 08/11/22 08/11/22 08/11/22 13:39 13:39 16:57 Corrected WBC Uncorrected WBC Count RBC Hgb Hct MCV MCH MCHC RDW Plt Count MPV Neut % (Auto) Lymph % (Auto) Miner % (Auto) Eos % (Auto) Baso % (Auto) Nucleat RBC Rel Count Neut # (Auto) Lymph # (Auto) Miner # (Auto) Eos # (Auto) Baso # (Auto) Band Neutrophils % Lymphocytes % Monocytes % Segmented Neutrophils Platelet Estimate Plt Morphology Comment RBC Morphology Poikilocytosis Anisocytosis Microcytosis Crenated Cell PT 12.2 INR 1.0 PHA Creatinine Clear Sodium Potassium Chloride Carbon Dioxide Anion Gap BUN Creatinine Est GFR ( Amer) Est GFR (Non-Af Amer) Glucose POC Glucose POC Glucose Comment Estimat Average Glucose Hemoglobin A1c Calcium Troponin I High Sens 42 H B-Hydroxybutyrate 2.40 H 08/11/22 08/11/22 08/11/22 17:35 18:37 21:08 Corrected WBC Uncorrected WBC Count RBC Hgb Hct MCV MCH MCHC RDW Plt Count MPV Neut % (Auto) Lymph % (Auto) Miner % (Auto) Eos % (Auto) Baso % (Auto) Nucleat RBC Rel Count Neut # (Auto) Lymph # (Auto) Miner # (Auto) Eos # (Auto) Baso # (Auto) Band Neutrophils % Lymphocytes % Monocytes % Segmented Neutrophils Platelet Estimate Plt Morphology Comment RBC Morphology Poikilocytosis Anisocytosis Microcytosis Crenated Cell PT INR PHA Creatinine Clear Sodium Potassium Chloride Carbon Dioxide Anion Gap BUN Creatinine Est GFR ( Amer) Est GFR (Non-Af Amer) Glucose POC Glucose 304 253 282 POC Glucose Comment Glu2: cleaned meter Glu2: cleaned meter Estimat Average Glucose Hemoglobin A1c Calcium Troponin I High Sens B-Hydroxybutyrate 08/12/22 08/12/22 08/12/22 03:51 03:51 03:51 Corrected WBC 13.4 H Uncorrected WBC Count 13.4 H RBC 3.51 L Hgb 11.5 L Hct 33.6 L MCV 95.9 MCH 32.9 MCHC 34.3 RDW 13.6 Plt Count 162 MPV 8.3 Neut % (Auto) 88.0 Lymph % (Auto) 4.4 Miner % (Auto) 7.4 Eos % (Auto) 0.0 Baso % (Auto) 0.2 Nucleat RBC Rel Count 0.0 Neut # (Auto) 11.8 H Lymph # (Auto) 0.6 L Miner # (Auto) 1.0 H Eos # (Auto) 0.0 Baso # (Auto) 0.0 Band Neutrophils % Lymphocytes % Monocytes % Segmented Neutrophils Platelet Estimate Plt Morphology Comment RBC Morphology Poikilocytosis Anisocytosis Microcytosis Crenated Cell PT INR PHA Creatinine Clear 4.90 Sodium 140 D Potassium 4.8 D Chloride 104 Carbon Dioxide 20.2 L Anion Gap 20.6 H BUN 133 H D Creatinine 15.50 H D Est GFR ( Amer) 4 Est GFR (Non-Af Amer) 3 Glucose 100 D POC Glucose POC Glucose Comment Estimat Average Glucose 212 Hemoglobin A1c 9.0 H Calcium 7.1 L Troponin I High Sens B-Hydroxybutyrate 08/12/22 08/12/22 06:28 07:53 Corrected WBC Uncorrected WBC Count RBC Hgb Hct MCV MCH MCHC RDW Plt Count MPV Neut % (Auto) Lymph % (Auto) Miner % (Auto) Eos % (Auto) Baso % (Auto) Nucleat RBC Rel Count Neut # (Auto) Lymph # (Auto) Miner # (Auto) Eos # (Auto) Baso # (Auto) Band Neutrophils % Lymphocytes % Monocytes % Segmented Neutrophils Platelet Estimate Plt Morphology Comment RBC Morphology Poikilocytosis Anisocytosis Microcytosis Crenated Cell PT INR PHA Creatinine Clear Sodium Potassium Chloride Carbon Dioxide Anion Gap BUN Creatinine Est GFR ( Amer) Est GFR (Non-Af Amer) Glucose POC Glucose 87 93 POC Glucose Comment Glu2: cleaned meter Estimat Average Glucose Hemoglobin A1c Calcium Troponin I High Sens B-Hydroxybutyrate A&P - Cardiology (1) Preoperative cardiovascular examination: Code(s): Z01.810 - Encounter for preprocedural cardiovascular examination Status: Acute Plan: Recommendations: 1. Maintain aspirin 81 mg daily 2. Maintain atorvastatin 40 mg daily 3. Maintain beta-blockade with metoprolol tartrate 50 mg twice daily 4. My impression is that the patient achieve a state of clinical euvolemia after this morning's session of dialysis. At that point, I recommend proceed with surgical intervention (2) CAD (coronary artery disease): Assessment/Problem Details: With history of remote proximal LAD PCI. CHD stable/quiescent. CCS 0. Borderline troponin of 42 would be expected in the setting of an uric KELSEA/renal failure. No evidence of unstable coronary heart disease or acute coronary syndrome. No indication nor recommendation for preoperative stress testing or cardiac catheterization. Code(s): I25.10 - Atherosclerotic heart disease of [place] coronary artery without angina pectoris Status: Acute Plan: Preoperative recommendations as above. Plan Thank you very much for this kind consultation and for allowing us to participate in the care of this very pleasant patient Time spent with patient Time Spent With Patient (min): 30 Documented By: Cade Alvarez MD 08/12/22 0959 Signed By: <Electronically signed by Cade Alvarez MD> 08/12/22 [address] [facility] Work Phone: [phone]) 557-473702-15-2023 Consult note Author Alicia Perea [facility] August 11, 2022 5:46pm Note Date/Time August 11, 2022 4:00pm [facility] [address] [place] [address] Nephrology Consult Note Signed with Nancy Patient: Victorino Smyth MR#: [id number] : 1940 Acct:[id number] Age/Sex: 82 / M Adm Date: 3 Loc: Room: [address] [place] [address] Type: ADM IN Attending Dr: Hiral Interiano MD Copies to: MD Tray Campoverde MD Mazhar Rahman, MD~ ADDENDUM1 patient was seen and examined during HD and case was d/w HD RN. No issues were reported by patient and RN Addendum Documented By: Alicia Perea MD 08/11/221745 Addendum Signed By: <Electronically signed by Alicia Perea MD> 08/11/221745 Providers Consult Date: 08/11/22 Requesting Provider: Hiral Interiano MD Primary Care Provider: Tray Alfaro MD HPI Reason for Consult: KELSEA on CKD, hyperkalemia, metabolic acidosis management History of Present Illness: This is a 82-year-old male with a medical history of coronary artery disease s/pPCI, nephrolithiasis, CKD, diabetes mellitus, hypertension, dyslipidemia was presented to the emergency room of [facility] for generalized weakness and low urine output. On evaluation emergency room patient was found to have a life- threatening hyperkalemia with serum potassium 7 mmol/L, acute kidney injurywith elevated serum creatinine 17.8 mg/dL, metabolic acidosis serum bicarbonate 13.5 mmol/L. He was given insulin D50 calcium gluconate in the [place] emergency room. He had a CAT scan abdomen pelvis done which showed obstructive kidney stones in the right UPJ and total atrophy of the left kidney. Case was discussed with the on-call urologist Dr. Olivares and recommended patient needs to be n.p.o. for surgical intervention. He was transferred to [facility] for further care. Patient is history of CKD due to the longstanding DM, HTN and recurrent KELSEA with baseline serum creatinine 1.4 to 1.6 mg/dL. He follows in my office for his CKD care. Patient after arrival at the [facility] hada repeat labs done which showed persistent hyperkalemia, metabolic acidosis and hyperglycemia. His surgery was canceled due to his profound hyperkalemia and metabolic acidosis. Nephrology is consulted for KELSEA on CKD management. Patientwas seen examined bedside he reported to have a generalized weakness and shortness of breath. Review of Systems Review of Systems All other systems reviewed & are negative unless noted below or in HPI Review of systems: Cardiovascular: denies any chest pain, palpitation Pulmonary: denies any cough, hemoptysis Gastrointestinal: denies any nausea, vomiting, diarrhea Neurological :denies any headache, numbness, weakness Endocrine: denies any polyuria, polydipsia Dermatological: denies any itching or rash PMFSH Vaccinated for COVID-19?: Yes Medical History Arthritis BPH (benign prostatic hyperplasia) Coronary artery disease Diabetes mellitus, type 2 Hyperlipidemia Hypertension Myocardial infarct Surgical History History of cardiac catheterization Family History Other No significant family history Social History Smoking Status: Former smoker Tobacco Type: cigarettes Meds Medications & Allergies Allergies Penicillins Allergy (Verified 06/28/19 17:24) Hives Home Medications amlodipine 10 mg tablet 10 mg PO DAILY 06/15/19 [History Confirmed 06/28/19] aspirin 81 mg chewable tablet 81 mg PO DAILY 06/15/19 [History Confirmed 06/28/19] atorvastatin 80 mg tablet 40 mg PO HS 06/15/19 [History Confirmed 06/28/19] cholecalciferol (vitamin D3) 125 mcg (5,000 unit) disintegrating tablet 5,000 unit PO DAILY 06/15/19 [History Confirmed 06/28/19] metoprolol tartrate 50 mg tablet 50 mg PO BID 06/15/19 [History Confirmed 06/28/19] nitroglycerin 0.3 mg sublingual tablet 0.3 mg sublingual Q5-15M PRN Chest Pain 06/15/19 [History Confirmed 06/28/19] dicyclomine 10 mg capsule 10 mg PO TID PRN spasm #14 caps 06/18/19 [Rx Confirmed 06/28/19] glimepiride 4 mg tablet 1 mg PO DAILY #0 tabs 06/18/19 [Rx Confirmed 06/28/19] sitagliptin phosphate 100 mg tablet 50 mg PO DAILY #0 tabs 06/18/19 [Rx Confirmed 06/28/19] doxycycline hyclate 100 mg tablet 100 mg PO BID 7 days #14 tabs 07/05/19 [Rx] Active Medications: Active Medications Acetaminophen (Acetaminophen 325 Mg Tablet) 650 mg PO Q6HR PRN PRN Reason: Pain Scale 1 - 3 or fever Stop: 08/11/23 13:40 Aspirin (Aspirin 81 Mg Tablet.Dr) 81 mg PO DAILY [facility] Stop: 08/12/23 08:59 Atorvastatin Calcium (Atorvastatin 40 Mg Tablet) 40 mg PO HS [facility] Stop: 08/11/23 21:59 Dextrose (Dextrose 50% In Water 25 Gm/50 Ml Syringe) 0 gm IV-PUSH PRN PRN PRN Reason: Hypoglycemia Stop: 08/11/23 14:01 Glucose (Dextrose 40% Gel 15 Gm Tube) 0 gm PO PRN PRN PRN Reason: Hypoglycemia Stop: 08/11/23 14:01 Heparin Sodium (Porcine) (Heparin 10,000 Unit/10 Ml Vial) 0 unit IV PRN PRN PRN Reason: Dialysis Stop: 08/11/23 14:19 Hydralazine HCl (Hydralazine 20 Mg/Ml Vial) 10 mg IV-PUSH Q4H PRN PRN Reason: Hypertension Stop: 08/11/23 13:40 Ceftriaxone Sodium (Rocephin) 1 gm in 50 mls @ 100 mls/hr IV Q24H [facility] Azithromycin (Zithromax) 500 mg in 250 mls @ 250 mls/hr IV Q24H [facility] Sodium Chloride (0.9% Sodium Chloride 1,000 Ml) 1,000 mls @ 0 mls/hr MISCELLANE .Q0M PRN PRN Reason: Dialysis Stop: 08/11/23 14:19 Insulin Aspart (Insulin Aspart 300 Units/3 Ml Insuln.Pen) 0 units SUBCUT TID.[facility]; Protocol Stop: 08/11/23 16:59 Metoprolol Tartrate (Metoprolol Tartrate 50 Mg Tablet) 50 mg PO BID [facility] Stop: 08/11/23 20:59 Nitroglycerin (Nitroglycerin 0.4 Mg Tab.Subl) 0.4 mg SUBLINGUAL Q5M PRN PRN Reason: Chest Pain Stop: 08/11/23 14:01 Sodium Chloride (Sodium Chloride 0.9 % 10 Ml Syringe) 0 ml IV-PUSH PRN PRN PRN Reason: Flush Stop: 08/11/23 14:19 Sodium Chloride (Sodium Chloride 0.9 % 10 Ml Syringe) 0 ml IV-PUSH PRN PRN PRN Reason: Flush Stop: 08/11/23 15:44 Exam Physical Exam Vital Signs: Temp Pulse Resp BP Pulse Ox O2 Del Method 97.8 F 101 H 32 H 172/71 H 96 Room Air 08/11/22 13:13 08/11/22 13:13 08/11/22 13:13 08/11/22 13:13 08/11/22 13:13 08/11/22 13:39 Narrative: General: Appears comfortable and not in distress Heart: S1-S2, no rub Lung: Bilateral air entry, no wheezing or crackles Abdomen: Soft, positive bowel sounds Extremities: Trace edema, no cyanosis Head: Atraumatic, normocephalic Ear: No gross hearing Deficit or external ear redness Eyes: No pallor or redness Neck: No JVD or visible mass Skin: No rashes or bruises CORE STRIPPER: Awake,Alert, following simple command Musculoskeletal: No joint swelling or limitation of movement Psychiatric: Cooperative, normal mood and affect Results Labs 08/11/22 13:39 08/11/22 13:39 Labs: 08/11/22 13:39 BUN 163 H Creatinine 17.89 H Radiology Impressions Impressions - last 24 hours: Any impression(s) listed above is documentation that was entered by the reading physician into a diagnostic report(s) for Victorino Smyth. I have reviewed the report(s) and am incorporating any findings in the treatment plan of this patient where applicable. A&P - Nephrology Assessment/Plan (1) Acute kidney injury superimposed on chronic kidney disease: Plan: He has acute kidney injury due to the obstructive uropathy of right kidney. He has left renal atrophy. He has a critical acidosis with hyperkalemia. (2) Hyperkalemia: Plan: He has hyperkalemia likely due to acute kidney injury metabolic acidosis and hyperglycemia. (3) Metabolic acidosis: Plan: He has critical metabolic acidosis likely due to the KELSEA on CKD and hyperglycemia. (4) Hydronephrosis with ureteral calculus: Plan: He has obstructive uropathy of the right kidney. Urology has been consulted plan to do ureteral stent placement once he is medically stable. (5) CKD (chronic kidney disease) stage 3, GFR 30-59 ml/min: Plan: He has a longstanding CKD due to the DM, HTN and recurrent KELSEA due to the obstructive uropathy. His baseline serum creatinine is 1.4 to 1.6 mg/dL. (6) Type 2 diabetes mellitus with diabetic chronic kidney disease: Plan: He has known insulin-dependent type 2 diabetes mellitus and was taking sitagliptin and glimepiride at home (7) Hypertensive chronic kidney disease with stage 1 through stage 4 chronic kidney disease, or unspecified chronic kidney disease: Plan: Blood pressure is high. He is appears to be mildly hypervolemic. Plan * I discussed with the patient and the at the bedside to initiate emergent hemodialysis due to the critical hyperkalemia, metabolic acidosis and KELSEA. Patient consented for dialysis. I consulted the boiler room helper for hemodialysis catheter placement which was placed by Dr. Ramirez. * Hemodialysis today as ordered. * Continue DM management as per the primary hospitalist team. The goal of blood sugars between 100 to 150 mg/dL. * Continue management of the obstructive uropathy as per urology. * Continue home dose of the amlodipine. * Check renal function daily monitor input output * Thanks for consult. We will continue to follow with you. Please feel free to call us with any question. I discussed the case with the primary hospitalist team. Documented By: Alicia Perea MD 08/11/22 6442 Signed By: <Electronically signed by Alicia Perea MD> 08/11/22 9203 [facility] Work Phone: [phone]) 149-433202-15-2023 Consult note Author Cade Alvarez [facility] August 11, 2022 4:47pm Note Date/Time August 11, 2022 4:36pm [facility] [address] [place] [address] Cardiology Consult Note Signed Patient: Victorino Smyth MR#: [id number] : 1940 Acct:[id number] Age/Sex: 82 / M Adm Date: 3 Loc: Room: [address] [place] [address] Type: ADM IN Attending Dr: Hiral Interiano MD Copies to: MD Hiral James MD Stephen M Tann, MD~ Cardiology HPI History of Present Illness Consult Date: 08/11/22 Reason for Consult: Preoperative cardiovascular evaluation given history of LAD PCI in 2012 and 2016 HPI: Mr. Smyth is a 82 year old male with known coronary heart disease history of initial PCI to the proximal LAD in 2013 with repeat PCI in the setting of acute coronary syndrome in 2017. Patient initially presented to [place] emergency department complaining of shortness of breath abdominal fullness decreased urineoutput and generalized weakness. The patient was found to be in profound acute kidney injury with BUN of 150 and creatinine of 17. He was markedly hyperkalemic and acidotic. ECGs showed peaking T waves consistent with hyperkalemia. Troponin biomarkers were negative. The patient was transferred to our facility where he has been started on temporary hemodialysis. Diagnosis has been made of obstructive uropathy as the underlying source of the patient's acute kidney injury. Dr. Olivares with urology has seen and evaluated the patient and recommends surgical intervention. Given the patient's known coronary heart disease I am now consulted for preoperative cardiovascular evaluation and risk stratification. Review of Systems Review of Systems All other systems reviewed & are negative unless noted below or in HPI PMFSH Vaccinated for COVID-19?: Yes Medical History Arthritis BPH (benign prostatic hyperplasia) Coronary artery disease Diabetes mellitus, type 2 Hyperlipidemia Hypertension Myocardial infarct Surgical History History of cardiac catheterization Family History Other No significant family history Social History Smoking Status: Former smoker Tobacco Type: cigarettes Meds Medications and Allergies Allergies Penicillins Allergy (Verified 06/28/19 17:24) Hives Home Medications amlodipine 10 mg tablet 10 mg PO DAILY 06/15/19 [History Confirmed 06/28/19] aspirin 81 mg chewable tablet 81 mg PO DAILY 06/15/19 [History Confirmed 06/28/19] atorvastatin 80 mg tablet 40 mg PO HS 06/15/19 [History Confirmed 06/28/19] cholecalciferol (vitamin D3) 125 mcg (5,000 unit) disintegrating tablet 5,000 unit PO DAILY 06/15/19 [History Confirmed 06/28/19] metoprolol tartrate 50 mg tablet 50 mg PO BID 06/15/19 [History Confirmed 06/28/19] nitroglycerin 0.3 mg sublingual tablet 0.3 mg sublingual Q5-15M PRN Chest Pain 06/15/19 [History Confirmed 06/28/19] dicyclomine 10 mg capsule 10 mg PO TID PRN spasm #14 caps 06/18/19 [Rx Confirmed 06/28/19] glimepiride 4 mg tablet 1 mg PO DAILY #0 tabs 06/18/19 [Rx Confirmed 06/28/19] sitagliptin phosphate 100 mg tablet 50 mg PO DAILY #0 tabs 06/18/19 [Rx Confirmed 06/28/19] doxycycline hyclate 100 mg tablet 100 mg PO BID 7 days #14 tabs 07/05/19 [Rx] Exam Physical Exam Vital Signs: Temp Pulse Resp BP Pulse Ox O2 Del Method 97.8 F 101 H 32 H 172/71 H 96 Room Air 08/11/22 13:13 08/11/22 13:13 08/11/22 13:13 08/11/22 13:13 08/11/22 13:13 08/11/22 13:39 Const General: cooperative, no acute distress and ill appearing Nutritional Appearance: obese Orientation: alert, awake and oriented x3 HEENT Head: normocephalic and atraumatic Face and sinus: face symmetric Mouth: moist mucous membranes Teeth and gingiva: fair dentition Eyes Conjunctivae: conjunctivae normal Sclera: sclerae normal Pupils: PERRL and accommodation normal EOM: EOM intact bilaterally Direct ophthalmoscopy: no photophobia Neck Neck: no lymphadenopathy and supple Neck mass: No Thyroid: thyroid normal Carotids: normal carotid upstroke Lymphatic: no lymphadenopathy noted Chest Chest palpation & inspection: normal inspection of the chest Resp Effort & Inspection: symmetric chest movement and abnormal respiratory pattern Auscultation: diminished lung sounds Cardio Jugular venous pressure: JVD Palpation: abnormal PMI, heave and palpable S4 Rate: regular rate Rhythm: regular rhythm Heart Sounds: S1 normal, S2 normal and gallop S4 gallop Pulses: radial pulses present and femoral pulses present GI Palpation: soft and no hepatosplenomegaly Auscultation: normal bowel sounds Skin General: no rashes or lesions noted Trauma: no lacerations or abrasions Wounds: no wounds Neuro General: patient alert, patient awake, patient oriented x3, moves all extremities and no focal motor deficits Cranial Nerves: CN's II-XII intact bilaterally Cognition: normal cognition Speech: speech normal Motor: muscle tone normal throughout Sensory Exam: no sensory deficits noted Extrem General: edema Psych Mood: congruent mood Affect: normal affect Speech and Movement: speech and movement normal Attitude: cooperative Thought Process: normal Insight: fair Judgment: fair Results Labs 08/11/22 13:39 08/11/22 13:39 Lab results: CBC 08/11/22 Range/Units 13:39 RBC 3.85 L (3.90-5.60) X10E6/uL Hgb 12.5 L (13.0-17.0) g/dL Hct 38.1 L (38.8-50.0) % Plt Count 203 (150-450) x10E3/uL Neut # (Auto) N/A Lymph # (Auto) N/A Miner # (Auto) N/A Eos # (Auto) N/A Baso # (Auto) N/A Comprehensive Metabolic Panel 08/11/22 Range/Units 13:39 Sodium 131 L (136-146) mmol/L Potassium 7.4 H* (3.5-5.1) mmol/L Chloride 99 (95-114) mmol/L Carbon Dioxide 9.3 L (22.0-30.0) mmol/L BUN 163 H (9-23) mg/dL Creatinine 17.89 H (0.64-1.27) mg/dL Glucose 507 H* (70-100) mg/dL Calcium 7.2 L (8.2-10.2) mg/dL Intake and Output 08/11/22 08/11/22 08/11/22 07:59 15:59 23:59 Intake Total 0 / 0 Balance 0 / 0 Intake: Oral 0 / 0 Other: # Unmeasured Voids 0 # Bowel Movements 0 Weight 118.2 kg Date of Last Bowel Movement 08/11/22 Patient Weight 08/11/22 23:59 Weight 118.2 kg Lab 08/11/22 13:39 PT 12.2 INR 1.0 EKG Interpretations EKG Attestation EKG: I reviewed this ECG and interpreted as documented below: Dysrhythmias Sinus rhythms and dysrhythmias: sinus tachycardia Blocks, axis, hypertrophy, ST abn AV and intraventricular conduction: 1 AV block Repolarization changes or abnormalities: nonspecific abnormality, ST segment, and/or T wave OH, pacemaker, normal Normal tracing: no change compared to previous tracing A&P - Cardiology (1) Preoperative cardiovascular examination: Assessment/Problem Details: Risk stratification predictors: 1. High risk surgery: 0 2. History of ischemic heart disease: 1 3. History of cerebrovascular disease: 0 4. Insulin requiring diabetes mellitus: 0 Preop serum creatinine greater than 2.0 mg/dL: 1 Total Dinh risk index score: Positive to Risk of major perioperative cardiac events 2.4% Plan: Recommendations: 1. Maintain aspirin 81 mg daily 2. Maintain atorvastatin 40 mg daily 3. Maintain beta-blockade with metoprolol tartrate 50 mg twice daily 4. Obtain as close to possible a compensated/euvolemic state with temporary hemodialysis prior to surgical intervention 5. Once the patient is clinically euvolemic and well compensated from a volume standpoint, recommend proceed with surgical intervention Code(s): Z01.810 - Encounter for preprocedural cardiovascular examination (2) CAD (coronary artery disease): Assessment/Problem Details: History of proximal LAD PCI. CHD currently quiescent. CCS 1. Further preoperative risk stratification with stress testing or cardiac catheterization is not indicated nor recommended. Plan: Preoperative recommendations as above. Code(s): I25.10 - Atherosclerotic heart disease of [place] coronary artery without angina pectoris Plan Thank you very much for this kind consultation and for allowing us to participate in the care of this very pleasant patient Documented By: Cade Alvarez MD 08/11/22 1634 Signed By: <Electronically signed by Cade Alvarez MD> 08/11/22 1647 [facility] Work Phone: 1(988) 593-806102-15-2023 Consult note Author Ni Olivares [facility] August 11, 2022 3:24pm Note Date/Time August 11, 2022 3:24pm [facility] [address] [place] [address] Urology Consult Note Signed Patient: Victorino Smyth MR#: [id number] : 1940 Acct:[id number] Age/Sex: 82 / M Adm Date: 3 Loc: Room: [address] [place] [address] Type: ADM IN Attending Dr: Hiral Interiano MD Copies to: MD Ni James MD Mazhar Rahman, MD~ History of Present Illness Consult Details Consult Date: 08/11/2022 Requesting Provider: Hiral Interiano MD HPI: Mr. Smyth is an 82-year-old man transferred from the [facility] earliertoday. The patient presented with some diffuse abdominal complaints, decreased urine output, and was found to be in profound renal failure with a creatinine of17 and a BUN over 150. He was hyperkalemic and acidotic. He was transferred with plans for the possibility of cystoscopy and or stent placement on the rightside. He essentially has a nonfunctioning atrophic left kidney and a large obstructing stone at the right ureteropelvic junction. Apparently the patient had breakfast in the emergency room prior to transfer to [facility]. He finished breakfast at about 11 AM. He subsequently had a bottle of water in transfer in the ambulance. Currently he is moderately short of breath and has minimal discomfort at the present time. He states he has had minimal urine output over the past week and states he is making about 1 cup of urine a day. Urologic consultation was requested secondary to the profound renal failure in the face of essentially a solitary functional right kidney and right proximal ureteral obstruction. The entire PMH,PSH,ROS, family and social history, medications, and allergies are reviewed and unchanged from the admission H and P documented by Dr. Interiano earlier today PMFSH Vaccinated for COVID-19?: Yes Medical History (Updated 08/11/22 @ 15:19 by Ni Olivares MD) Arthritis BPH (benign prostatic hyperplasia) Coronary artery disease Diabetes mellitus, type 2 Hyperlipidemia Hypertension Myocardial infarct Renal insufficiency Surgical History History of cardiac catheterization Family History Other No significant family history Social History Smoking Status: Former smoker Tobacco Type: cigarettes Meds Medications and Allergies Allergies Penicillins Allergy (Verified 06/28/19 17:24) Hives Home Medications amlodipine 10 mg tablet 10 mg PO DAILY 06/15/19 [History Confirmed 06/28/19] aspirin 81 mg chewable tablet 81 mg PO DAILY 06/15/19 [History Confirmed 06/28/19] atorvastatin 80 mg tablet 40 mg PO HS 06/15/19 [History Confirmed 06/28/19] cholecalciferol (vitamin D3) 125 mcg (5,000 unit) disintegrating tablet 5,000 unit PO DAILY 06/15/19 [History Confirmed 06/28/19] metoprolol tartrate 50 mg tablet 50 mg PO BID 06/15/19 [History Confirmed 06/28/19] nitroglycerin 0.3 mg sublingual tablet 0.3 mg sublingual Q5-15M PRN Chest Pain 06/15/19 [History Confirmed 06/28/19] dicyclomine 10 mg capsule 10 mg PO TID PRN spasm #14 caps 06/18/19 [Rx Confirmed 06/28/19] glimepiride 4 mg tablet 1 mg PO DAILY #0 tabs 06/18/19 [Rx Confirmed 06/28/19] sitagliptin phosphate 100 mg tablet 50 mg PO DAILY #0 tabs 06/18/19 [Rx Confirmed 06/28/19] doxycycline hyclate 100 mg tablet 100 mg PO BID 7 days #14 tabs 07/05/19 [Rx] Exam Physical Exam Vital Signs: Temp Pulse Resp BP Pulse Ox O2 Del Method 97.8 F 101 H 32 H 172/71 H 96 Room Air 08/11/22 13:13 08/11/22 13:13 08/11/22 13:13 08/11/22 13:13 08/11/22 13:13 08/11/22 13:39 Narrative: General: The patient appears nontoxic. Does not appear ill. Appears somewhat short of breath and tachypneic Skin: Warm, dry. No gross lesions are identified. HEENT: Normocephalic, atraumatic. Pupils equal, round, and reactive to light and accommodation. Oral mucosa moist. Respiratory: No increased respiratory effort. Cardiac: Regular rate and rhythm GI: Abdomen is soft, nontender, negative peritoneal signs, no obvious hepatosplenomegaly , rotund : The bladder is nonpalpable. There is no CVA tenderness bilaterally. Genitalia: phallus normal, testes normal without tenderness or mass, scrotum with fluid collection around the left testicle consistent with hydrocele Musculoskeletal: Moves all extremities, normal strength Neurologic: Awake, alert, oriented Psychiatric: Affect normal to clinical condition Lymphatic: No obvious adenopathy Results Labs 08/11/22 13:39 08/11/22 13:39 Labs: Laboratory Results - Last 48 hrs. 08/11/22 13:39: B-Hydroxybutyrate 2.40 H 08/11/22 13:39: PT 12.2, INR 1.0 08/11/22 13:39: Troponin I High Sens 16 08/11/22 13:39: Corrected WBC 9.1, Uncorrected WBC Count 9.1, RBC 3.85 L, Hgb 12.5 L, Hct 38.1 L, MCV 99.0, MCH 32.5, MCHC 32.8, RDW 13.8, Plt Count 203, MPV 8.8, Neut % (Auto) N/A, Lymph % (Auto) N/A, Miner % (Auto) N/A, Eos % (Auto) N/A, Baso % (Auto) N/A, Nucleat RBC Rel Count N/A, Neut # (Auto) N/A, Lymph # (Auto) N/A, Miner # (Auto) N/A, Eos # (Auto) N/A, Baso # (Auto) N/A, Band Neutrophils % 1, Lymphocytes % 5 L, Monocytes % 1 L, Segmented Neutrophils 94 H, Platelet Estimate Normal, Plt Morphology Comment Normal, RBC Morphology N/A, Poikilocytosis Slight, Anisocytosis Slight, Microcytosis Slight, Crenated Cell Slight 08/11/22 13:39: PHA Creatinine Clear 4.24, Sodium 131 L, Potassium 7.4 H*, Chloride 99, Carbon Dioxide 9.3 L, Anion Gap 30.1 H, BUN 163 H, Creatinine 17.89 H, Est GFR ( Amer) 3, Est GFR (Non-Af Amer) 3, Glucose 507 H*, Calcium 7.2 L Assessment/Plan (1) Hydronephrosis with ureteral calculus: Plan: Large right UPJ calculus, 1.1 cm Code(s): N13.2 - Hydronephrosis with renal and ureteral calculous obstruction (2) Acute kidney injury superimposed on chronic kidney disease: Code(s): N17.9 - Acute kidney failure, unspecified; N18.9 - Chronic kidney disease, unspecified (3) Elevated PSA: Plan: With prior negative biopsy back [place] [address] Carlisle Code(s): R97.20 - Elevated prostate specific antigen [PSA] (4) Acute kidney insufficiency: Code(s): N28.9 - Disorder of kidney and ureter, unspecified (5) Left renal atrophy: Plan: Most likely from chronic obstruction present even back in 2018 2019, with a large ureteral calculus treated by Dr. Carlisle with laser lithotripsy and stone extraction Code(s): N26.1 - Atrophy of kidney (terminal) (6) Hyperkalemia: Plan: Severe Code(s): E87.5 - Hyperkalemia Plan Overall this patient is in serious condition with profound renal failure, hyperkalemia, metabolic acidosis. Repeat potassium level is actually worse than that noted at the [facility] at a current level of 7.4. Due to him eating prior to being transferred the plan surgical case had already been delayed until about 6 to 7 PM but with the hyperkalemia uncorrected he is not an acceptable anesthesia risk at this time. I understand the plans are already underway for a temporary hemodialysis catheter to be placed and hemodialysis initiated by primary service. He has essentially a nonfunctional left kidney and is dependent on the right side which is obstructed from the 1.1 cm stone at the right ureteropelvic junction. I explained to the patient and his that at some point we may consider placing him back on the surgical schedule for cystoscopy and a right double-J stent placement to relieve obstruction pending his clinical course. His other current medical issues will have to be resolved for him to become an acceptable anesthesia risk. Eventually after stent is placed perhaps lithotripsy and or laser lithotripsy can be considered. Again he is in serious condition with high anesthesia risk currently and the scheduled case for this afternoon/evening will be canceled. I will be following along as clinically indicated. Documented By: Ni Olivares MD 08/11/22 1516 Signed By: <Electronically signed by MD Ni Olivares> 08/11/22 [address] [facility] Work Phone: [phone]) [phone] History and physical note Author Hiral Interiano [facility] August 11, 2022 2:02pm Note Date/Time August 11, 2022 2:02pm [facility] [address] [place] [address] Hospitalist H&P Signed Patient: Victorino Smyth MR#: [id number] : 1940 Acct:[id number] Age/Sex: 82 / M Adm Date: 02/15/2 3 Loc: Room: 8Q7743-6 Type: ADM IN Attending Dr: Hiral Interiano MD Copies to: MD Hiral James MD~ HPI DATE OF EXAMINATION: 08/11/22 CHIEF COMPLAINT: Renal failure, hyperkalemia and right kidney stone. HISTORY OF PRESENT ILLNESS: Patient is a 82-year-old male with past medical history of coronary disease status post PCI as per the patient last intervention was 2016 currently on baby aspirin, diabetes mellitus type 2, hypertension, chronic kidney disease stage III/IV and history of nephrolithiasis. Patient has been transferred from [facility] ER for acute kidney injury and obstructing stone in the right UPJ with hydronephrosis. I received a call from the ER physician earlier regarding hyperkalemia and worsening renal failure. Given his history of kidneystone discussed with the ER physician to obtain a CT abdomen/pelvis. I was toldthat he received a full cocktail for hyperkalemia with no other abnormality. His initial labs showed sodium of 138, potassium 7, BUN 156, creatinine 17.89, bicarbonate 13.5, WBC 9, hemoglobin 12, platelet 191 and troponin 18. No repeated labs available in the record from [facility] Chest x-ray read as mild bilateral lower lung streaky opacities reflecting atelectasis, less likely infiltrate. CT abdomen/pelvis showing obstructing 1.1 x 1 x 0.7 cm calculus in the right ureter just distal to right UPJ with moderate right pelviocaliectasis. Table atrophic left kidney. 0.8 cm nodular density in left lower chest. Case was discussed with Dr. Olivares regarding CT scan finding who recommended to keep patient n.p.o. and accepted for intervention. Apparently patient was fed in theER. On arrival to the floor he is complaining of heartburn with midsternal chest discomfort and describes a similar feeling when he had an OH in 2017 and prior to that in 2012. Stat EKG was negative for acute ischemic changes. Patient mentioned having cough for couple of weeks which is mostly dry and he thought he pulled a muscle in the right groin and has been having pain since then. Presented to ER with complaint of hypoglycemia. Patient also mentioned having diarrhea which has been going on for last few days. 2 weeks ago he was constipated and was taking medication for that and then he developed diarrhea. Review of Systems Review of Systems All other systems reviewed & are negative unless noted below or in HPI [facility] Medical History (Updated 08/11/22 @ 13:59 by Hiral Interiano MD) Arthritis BPH (benign prostatic hyperplasia) Coronary artery disease Diabetes mellitus, type 2 Hyperlipidemia Hypertension Myocardial infarct Renal insufficiency Surgical History History of cardiac catheterization Family History Other No significant family history Social History Smoking Status: Former smoker Tobacco Type: cigarettes Meds Medications and Allergies Allergies Penicillins Allergy (Verified 06/28/19 17:24) Hives Home Medications amlodipine 10 mg tablet 10 mg PO DAILY 06/15/19 [History Confirmed 06/28/19] aspirin 81 mg chewable tablet 81 mg PO DAILY 06/15/19 [History Confirmed 06/28/19] atorvastatin 80 mg tablet 40 mg PO HS 06/15/19 [History Confirmed 06/28/19] cholecalciferol (vitamin D3) 125 mcg (5,000 unit) disintegrating tablet 5,000 unit PO DAILY 06/15/19 [History Confirmed 06/28/19] metoprolol tartrate 50 mg tablet 50 mg PO BID 06/15/19 [History Confirmed 06/28/19] nitroglycerin 0.3 mg sublingual tablet 0.3 mg sublingual Q5-15M PRN Chest Pain 06/15/19 [History Confirmed 06/28/19] dicyclomine 10 mg capsule 10 mg PO TID PRN spasm #14 caps 06/18/19 [Rx Confirmed 06/28/19] glimepiride 4 mg tablet 1 mg PO DAILY #0 tabs 06/18/19 [Rx Confirmed 06/28/19] sitagliptin phosphate 100 mg tablet 50 mg PO DAILY #0 tabs 06/18/19 [Rx Confirmed 06/28/19] doxycycline hyclate 100 mg tablet 100 mg PO BID 7 days #14 tabs 07/05/19 [Rx] Exam Physical Exam Vital Signs: Temp Pulse Resp BP Pulse Ox O2 Del Method 97.8 F 101 H 18 172/71 H 96 Room Air 08/11/22 13:13 08/11/22 13:13 08/11/22 13:13 08/11/22 13:13 08/11/22 13:13 08/11/22 13:13 Const Orientation: alert, awake and oriented x3 HEENT Head: normal to inspection, no palpable skull fracture, normocephalic and atraumatic Eyes Pupils: PERRL EOM: EOM intact bilaterally and No nystagmus Neck Neck: normal visual inspection and full ROM Resp Effort & Inspection: able to speak in complete sentences and tachypneic Auscultation: no rales, no rhonchi and no wheezes Cardio Rate: tachycardic Rhythm: regular rhythm Heart Sounds: S1 normal and S2 normal GI Palpation: soft, not firm, no guarding and nontender Auscultation: normal bowel sounds General: No CVA tenderness Musc Cervical Spine: normal cervical lordosis and cervical ROM normal Neuro General: patient alert, patient awake, patient oriented x3, moves all extremities and no focal motor deficits Cranial Nerves: CN's II-XII intact bilaterally Cognition: normal cognition Speech: speech normal Motor: muscle tone normal throughout and strength 5/5 throughout Sensory Exam: no sensory deficits noted Extrem General: no calf tenderness and edema Laterality: bilaterally Severity: 1+ Psych Appearance: grossly normal A&P - Hospitalist Assessment/Plan (1) Acute kidney injury superimposed on chronic kidney disease: (2) Obstructive nephropathy: (3) Right ureteral stone: (4) Hyperkalemia: (5) Diabetes: (6) CAD (coronary artery disease): Plan Patient with extensive medical history including coronary disease status post PCI on aspirin, nephrolithiasis, chronic kidney disease and diabetes mellitus type 2. He has been transferred from [facility] for obstructive uropathy with worsening renal failure and hyperkalemia. I was informed the patient was given cocktail for hyperkalemia with no repeated labs available in the record. Patient arrival to floor complaining of midsternal discomfort and mentioned having similar feeling when he had an OH. Does appear tachypneic likely from metabolic acidosis. EKG negative for acute ischemic changes. Case discussed with Dr. Perea and Dr. Olivares immediately since patient has been fed and given his markedly abnormal labs. Will obtain stat set of labs including CBC, BMP, troponin and coagulation panel. Patient will be admitted to ICU given his critical condition high risk of malignant cardiac arrhythmia from hyperkalemia and metabolic acidosis which could lead to cardiac arrest. We will start him on sliding scale coverage. Continue beta-charlotte and aspirin. DVT prophylax with SCDs. Time spent planning advance care (# min): 15 Advance directives explained/discussed with: Patient Discussed CODE STATUS with the patient and he does not want to be resuscitated for long period of time. He does want to discuss with his before making final decision and will be full code at this time. Documented By: Hiral Interiano MD 08/11/22 1351 Signed By: <Electronically signed by Hiral Interiano MD> 08/11/22 1402 [facility] Work Phone: [phone]) 876-792902-15-2023 [facility] Encounter Date Diagnosis Assessment Notes Treatment Notes Treatment Clinical Notes May, Diabetes mellitus wi th chronic kidney disease (ICD-10 - E11.22) He has yhx-fyqcfpz-hpor ndent type 2 diabetes and currently takes glimepiride and Januvia. I have advised him to continue to follow with her PCP for DM management. Continue lisinopril due to the hypertension and renal protection. He will benefit with SGLT2 inhibitors including Farxiga and Jardiance to slow down the progression of CKD. I have advised him to follow with the PCP ordered diabetic specialist to discuss this. Due to the risk of hypotension I will hold the Kerendia for now. May, Chronic kidney disea se, stage III (moderate) (ICD-10 - N18.30) He has CKD likely due to the DM and HTN. His baseline serum Creatinine is 1.3-1.6 mg/dl. I have discussed with him the importance of good DM and HTN control to slow down the progression of disease. I have explained the potential risk of the worsening renal function due to the diclofenac. We will monitor renal function and he would like to continue it. 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 He appears to be euvolemic. I have advised him to monitor his blood pressure at home and call office if blood pressure stays above 140/80 mmHg. May, Secondary hyperparathyroidism (ICD-10 - N25.81) MBD parameters including calcium, phosphorus, vitamin D and PTH are within the goal. May, Nephrolithiasis (ICD -10 - N20.0) I have advised him to adequately hydrate himself. [employer] Other 08-11-2022 NotePROCEDURE: XR KNEE LT 4V or > COMPARISON: None. HISTORY: Pain of left knee joint FINDINGS: BONES:No acute fracture or dislocation. Minimal degenerative changes. SOFT TISSUES:Negative. No visible soft tissue swelling. EFFUSION:None visible. OTHER: Vascular calcification IMPRESSION: No acute abnormality Electronically authenticated by: TYLER MONSIVAIS Date: 2022-02-04 07:23[facility]05-31-2022 Evaluation note* Encounter Date Diagnosis Assessment Notes Treatment Notes Treatment Clinical Notes October, Diabetes mellitus wi th chronic kidney disease (ICD-10 - E11.22) He has ris-hryjjbf-xfdmb dent type 2 diabetes and currently takes glimepiride and Januvia. I have advised him to continue to follow with her PCP for DM management. Will start low-dose of lisinopril due to the hypertension and for renal protection. October, Chronic kidney disea se, stage III (moderate) (ICD-10 - N18.30) He has CKD likely due to the DM and HTN. His baseline serum Creatinine is 1.3-1.6 mg/dl. I have discussed with him the importance of good DM and HTN control to slow down the progression of disease. 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 He appears to be euvolemic. I have advised him to monitor his blood pressure at home and call office if blood pressure stays above 140/80 mmHg. October, Secondary hyperparathyroidism (ICD-10 - N25.81) MBD parameters including calcium, phosphorus, vitamin D and PTH are within the goal. October, Nephrolithiasis (ICD -10 - N20.0) I have advised him to adequately hydrate himself. [employer] Other 05-02-2022 Hospital Discharge instructions Follow Up Care 10/26/2021 10:06:54 With:KADE OLIVEROS, [facility], URL Address: [address] [place] [phone]- When: Unknown [facility] 05-02-2022 Hospital Discharge instructions Patient Education 10/26/2021 09:53:51 Calorie Counting for Weight Loss Calorie Counting for Weight Loss Calories are units of energy. Your body needs a certain amount of calories from food to keep you going throughout the day. When you eat more calories than your body needs, your body stores the extra calories as fat. When you eat fewer calories than your body needs, your body watkins fat to get the energy it needs. Calorie counting means keeping track of how many calories you eat and drink each day. Calorie counting can be helpful if you need to lose weight. If you make sure to eat fewer calories than your bodyneeds, you should lose weight. Ask your health care provider what a healthy weight is for you. For calorie counting to work, you will need to eat the right number of calories in a day in order to lose a healthy amount of weight per week. A dietitian can help you determine how many calories youneed in a day and will give you suggestions on how to reach your calorie goal. A healthy amount of weight to lose per week is usually 1 2 lb (0.5 0.9 kg). This usually means thatyour daily calorie intake should be reduced by 500 750 calories. Eating 1,200 1,500 calories per day can help most women lose weight. Eating 1,500 1,800 calories per day can help most men lose weight. What is my plan? My goal is to have calories per day. If I have this many calories per day, I should lose around pounds per week. What do I need to know about calorie counting? In order to meet your daily calorie goal, you will need to: Find out how many calories are in each food you would like to eat. Try to do this before you eat. Decide how much of the food you plan to eat. Write down what you ate and how many calories it had. Doing this is called keeping a food log. To successfully lose weight, it is important to balance calorie counting with a healthy lifestyle that includes regular activity. Aim for 150 minutes of moderate exercise (such as walking) or 75 minutes of vigorous exercise (such as running) each week. Where do I find calorie information? The number of calories in a food can be found on a Nutrition Facts label. If a food does not have aNutrition Facts label, try to look up the calories online or ask your dietitian for help. Remember that calories are listed per serving. If you choose to have more than one serving of a food, you will have to multiply the calories per serving by the amount of servings you plan to eat. Forexample, the label on a package of bread might say that a serving size is 1 slice and that there are 90 calories in a serving. If you eat 1 slice, you will have eaten 90 calories. If you eat 2 slices, you will have eaten 180 calories. How do I keep a food log? Immediately after each meal, record the following information in your food log: What you ate. Don't forget to include toppings, sauces, and other extras on the food. How much you ate. This can be measured in cups, ounces, or number of items. How many calories each food and drink had. The total number of calories in the meal. Keep your food log near you, such as in a small notebook in your pocket, or use a mobile jacqueline or website. Some programs will calculate calories for you and show you how many calories you have left forthe day to meet your goal. What are some calorie counting tips? Use your calories on foods and drinks that will fill you up and not leave you hungry: ?Some examples of foods that fill you up are nuts and nut butters, vegetables, lean proteins, and high-fiber foods like whole grains. High-fiber foods are foods with more than 5 g fiber per serving. ?Drinks such as sodas, specialty coffee drinks, alcohol, and juices have a lot of calories, yet do not fill you up. Eat nutritious foods and avoid empty calories. Empty calories are calories you get from foods or beverages that do not have many vitamins or protein, such as candy, sweets, and soda. It is better to have a nutritious high-calorie food (such as an avocado) than a food with few nutrients (such as a bag of chips). Know how many calories are in the foods you eat most often. This will help you calculate calorie counts faster. Pay attention to calories in drinks. Low-calorie drinks include water and unsweetened drinks. Pay attention to nutrition labels for low fat or fat free foods. These foods sometimes have thesame amount of calories or more calories than the full fat versions. They also often have added sugar, starch, or salt, to make up for flavor that was removed with the fat. Find a way of tracking calories that works for you. Get creative. Try different apps or programs ifwriting down calories does not work for you. What are some portion control tips? Know how many calories are in a serving. This will help you know how many servings of a certain food you can have. Use a measuring cup to measure serving sizes. You could also try weighing out portions on a kitchenscale. With time, you will be able to estimate serving sizes for some foods. Take some time to put servings of different foods on your favorite plates, bowls, and cups so you know what a serving looks like. Try not to eat straight from a bag or box. Doing this can lead to overeating. Put the amount you would like to eat in a cup or on a plate to make sure you are eating the right portion. Use smaller plates, glasses, and bowls to prevent overeating. Try not to multitask (for example, watch TV or use your computer) while eating. If it is time to eat, sit down at a table and enjoy your food. This will help you to know when you are full. It will also help you to be aware of what you are eating and how much you are eating. What are tips for following this plan? Reading food labels Check the calorie count compared to the serving size. The serving size may be smaller than what youare used to eating. Check the source of the calories. Make sure the food you are eating is high in vitamins and proteinand low in saturated and trans fats. Shopping Read nutrition labels while you shop. This will help you make healthy decisions before you decide to purchase your food. Make a grocery list and stick to it. Cooking Try to cook your favorite foods in a healthier way. For example, try baking instead of frying. Use low-fat dairy products. Meal planning Use more fruits and vegetables. Half of your plate should be fruits and vegetables. Include lean proteins like poultry and fish. How do I count calories when eating out? Ask for smaller portion sizes. Consider sharing an entree and sides instead of getting your own entree. If you get your own entree, eat only half. Ask for a box at the beginning of your meal and put the rest of your entree in it so you are not tempted to eat it. If calories are listed on the menu, choose the lower calorie options. Choose dishes that include vegetables, fruits, whole grains, low-fat dairy products, and lean protein. Choose items that are boiled, broiled, grilled, or steamed. Stay away from items that are buttered,battered, fried, or served with cream sauce. Items labeled crispy are usually fried, unless stated otherwise. Choose water, low-fat milk, unsweetened iced tea, or other drinks without added sugar. If you want an alcoholic beverage, choose a lower calorie option such as a glass of wine or light beer. Ask for dressings, sauces, and syrups on the side. These are usually high in calories, so you should limit the amount you eat. If you want a salad, choose a garden salad and ask for grilled meats. Avoid extra toppings like holloway, cheese, or fried items. Ask for the dressing on the side, or ask for olive oil and vinegar or lemon to use as dressing. Estimate how many servings of a food you are given. For example, a serving of cooked rice is cup orabout the size of half a baseball. Knowing serving sizes will help you be aware of how much food you are eating at restaurants. The list below tells you how big or small some common portion sizes arebased on everyday objects: ?1 oz 4 stacked dice. ?3 oz 1 deck of cards. ?1 tsp 1 . ?1 Tbsp a ping-pong ball. ?2 Tbsp 1 ping-pong ball. ? cup baseball. ?1 cup 1 baseball. Summary Calorie counting means keeping track of how many calories you eat and drink each day. If you eat fewer calories than your body needs, you should lose weight. A healthy amount of weight to lose per week is usually 1 2 lb (0.5 0.9 kg). This usually means reducing your daily calorie intake by 500 750 calories. The number of calories in a food can be found on a Nutrition Facts label. If a food does not have aNutrition Facts label, try to look up the calories online or ask your dietitian for help. Use your calories on foods and drinks that will fill you up, and not on foods and drinks that will leave you hungry. Use smaller plates, glasses, and bowls to prevent overeating. This information is not intended to replace advice given to you by your health care provider. Make sure you discuss any questions you have with your health care provider. Document Released: 06/13/2006 Document Revised: 03/02/2019 Document Reviewed: 05/13/2017 [employer] Patient Education 2020 [employer]. 10/26/2021 09:44:44 Urinary Frequency, Adult Urinary Frequency, Adult Urinary frequency means urinating more often than usual. You may urinate every 1 2 hours even though you drink a normal amount of fluid and do not have a bladder infection or condition. Although you urinate more often than normal, the total amount of urine produced in a day is normal. With urinary frequency, you may have an urgent need to urinate often. The stress and anxiety of needing to find a bathroom quickly can make this urge worse. This condition may go away on its own or you may need treatment at home. Home treatment may include bladder training, exercises, taking medicines, or making changes to your diet. Follow these instructions at home: Bladder health Keep a bladder diary if told by your health care provider. Keep track of: ?What you eat and drink. ?How often you urinate. ?How much you urinate. Follow a bladder training program if told by your health care provider. This may include: ?Learning to delay going to the bathroom. ?Double urinating (voiding). This helps if you are not completely emptying your bladder. ?Scheduled voiding. Do Kegel exercises as told by your health care provider. Kegel exercises strengthen the muscles that help control urination, which may help the condition. Eating and drinking If told by your health care provider, make diet changes, such as: ?Avoiding caffeine. ?Drinking fewer fluids, especially alcohol. ?Not drinking in the evening. ?Avoiding foods or drinks that may irritate the bladder. These include coffee, tea, soda, artificial sweeteners, citrus, tomato-based foods, and chocolate. ?Eating foods that help prevent or ease constipation. Constipation can make this condition worse. Your health care provider may recommend that you: ?Drink enough fluid to keep your urine pale yellow. ?Take wzcc-yju-fttrfbn or prescription medicines. ?Eat foods that are high in fiber, such as beans, whole grains, and fresh fruits and vegetables. ?Limit foods that are high in fat and processed sugars, such as fried or sweet foods. General instructions Take ethn-pvy-stwhhfy and prescription medicines only as told by your health care provider. Keep all follow-up visits as told by your health care provider. This is important. Contact a health care provider if: You start urinating more often. You feel pain or irritation when you urinate. You notice blood in your urine. Your urine looks cloudy. You develop a fever. You begin vomiting. Get help right away if: You are unable to urinate. Summary Urinary frequency means urinating more often than usual. With urinary frequency, you may urinate every 1 2 hours even though you drink a normal amount of fluid and do not have a bladder infection or other bladder condition. Your health care provider may recommend that you keep a bladder diary, follow a bladder training program, or make dietary changes. If told by your health care provider, do Kegel exercises to strengthen the muscles that help control urination. Take ecrp-gip-sfajnlw and prescription medicines only as told by your health care provider. Contact a health care provider if your symptoms do not improve or get worse. This information is not intended to replace advice given to you by your health care provider. Make sure you discuss any questions you have with your health care provider. Document Released: 04/09/2010 Document Revised: 12/21/2018 Document Reviewed: 12/21/2018 [employer] Patient Education 2020 [employer]. 10/26/2021 09:44:41 Kidney Stones, Tumy-is-Hzop Kidney Stones Kidney stones are rock-like masses that form inside of the kidneys. Kidneys are organs that make pee (urine). A kidney stone may move into other parts of the urinary tract, including: The tubes that connect the kidneys to the bladder (ureters). The bladder. The tube that carries urine out of the body (urethra). Kidney stones can cause very bad pain and can block the flow of pee. The stone usually leaves your body (passes) through your pee. You may need to have a doctor take out the stone. What are the causes? Kidney stones may be caused by: A condition in which certain glands make too much parathyroid hormone (primary hyperparathyroidism). A buildup of a type of crystals in the bladder made of a chemical called uric acid. The body makes uric acid when you eat certain foods. Narrowing (stricture) of one or both of the ureters. A kidney blockage that you were born with. Past surgery on the kidney or the ureters, such as gastric bypass surgery. What increases the risk? You are more likely to develop this condition if: You have had a kidney stone in the past. You have a family history of kidney stones. You do not drink enough water. You eat a diet that is high in protein, salt (sodium), or sugar. You are overweight or very overweight (obese). What are the signs or symptoms? Symptoms of a kidney stone may include: Pain in the side of the belly, right below the ribs (flank pain). Pain usually spreads (radiates) to the groin. Needing to pee often or right away (urgently). Pain when going pee (urinating). Blood in your pee (hematuria). Feeling like you may vomit (nauseous). Vomiting. Fever and chills. How is this treated? Treatment depends on the size, location, and makeup of the kidney stones. The stones will often pass out of the body through peeing. You may need to: Drink more fluid to help pass the stone. In some cases, you may be given fluids through an IV tube put into one of your veins at the hospital. Take medicine for pain. Make changes in your diet to help keep kidney stones from coming back. Sometimes, medical procedures are needed to remove a kidney stone. This may involve: A procedure to break up kidney stones using a beam of light (laser) or shock waves. Surgery to remove the kidney stones. Follow these instructions at home: Medicines Take aouv-ykd-lhqgqom and prescription medicines only as told by your doctor. Ask your doctor if the medicine prescribed to you requires you to avoid driving or using heavy machinery. Eating and drinking Drink enough fluid to keep your pee pale yellow. You may be told to drink at least 8 10 glasses of water each day. This will help you pass the stone. If told by your doctor, change your diet. This may include: ?Limiting how much salt you eat. ?Eating more fruits and vegetables. ?Limiting how much meat, poultry, fish, and eggs you eat. Follow instructions from your doctor about eating or drinking restrictions. General instructions Collect pee samples as told by your doctor. You may need to collect a pee sample: ?24 hours after a stone comes out. ?8 12 weeks after a stone comes out, and every 6 12 months after that. Strain your pee every time you pee (urinate), for as long as told. Use the strainer that your doctor recommends. Do not throw out the stone. Keep it so that it can be tested by your doctor. Keep all follow-up visits as told by your doctor. This is important. You may need follow-up tests. How is this prevented? To prevent another kidney stone: Drink enough fluid to keep your pee pale yellow. This is the best way to prevent kidney stones. Eat healthy foods. Avoid certain foods as told by your doctor. You may be told to eat less protein. Stay at a healthy weight. Where to find more information National Kidney Foundation (NKF): www.kidney.org [facility] (UCF): www.urologyhealth.org Contact a doctor if: You have pain that gets worse or does not get better with medicine. Get help right away if: You have a fever or chills. You get very bad pain. You get new pain in your belly (abdomen). You pass out (faint). You cannot pee. Summary Kidney stones are rock-like masses that form inside of the kidneys. Kidney stones can cause very bad pain and can block the flow of pee. The stones will often pass out of the body through peeing. Drink enough fluid to keep your pee pale yellow. This information is not intended to replace advice given to you by your health care provider. Make sure you discuss any questions you have with your health care provider. Document Released: 11/29/2008 Document Revised: 10/30/2019 Document Reviewed: 10/30/2019 [employer] Patient Education 2019 [employer]. Follow Up Care 02/23/2021 14:09:11 With:KADE OLIVEROS, Milton Brewer, SUEL Address: [facility] [address], [place] [address]- When:10/26/2022 [facility] 11-30-2021 Evaluation note* Encounter Date Diagnosis Assessment Notes Treatment Notes Treatment Clinical Notes Apr, Diabetes mellitus wi th chronic kidney disease (ICD-10 - E11.22) He has pxr-[id number]-copcm dent type 2 diabetes and currently takes glimepiride and Januvia. I have advised him to continue to follow with her PCP for DM management. Will start low-dose of lisinopril due to the hypertension and for renal protection. Apr, Chronic kidney disea se, stage III (moderate) (ICD-10 - N18.30) He has CKD likely due to the DM and HTN. His baseline serum Creatinine is 1.3-1.6 mg/dl. I have discussed with him the importance of good DM and HTN control to slow down the progression of disease. 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 He appears to be euvolemic. I have advised him to monitor his blood pressure at home and call office if blood pressure stays above 140/80 mmHg. Apr, Secondary hyperparathyroidism (ICD-10 - N25.81) MBD parameters including calcium, phosphorus, vitamin D and PTH are within the goal. Apr, Nephrolithiasis (ICD -10 - N20.0) I have advised him to adequately hydrate himself. [employer] Other Evaluation + Plan note Future Appointments Appointment Date:10/29/2022 08:45:00 AM Scheduled Provider:Milton BRAUN MD Location:[facility] Appointment Type:URO Office Visit [facility] evaluation + Plan note Future Appointments Appointment Date:09/14/2022 07:30:00 AM Scheduled Provider: Location:[facility] Appointment Type:Surgical PAT FT Appointment Date:10/07/2022 12:00:00 PM Scheduled Provider: Location:[facility] Appointment Type:Surgery FT Appointment Date:10/29/2022 08:45:00 AM Scheduled Provider:Milton BRAUN MD Location:[facility] Appointment Type:URO Office Visit [facility] Evaluation + Plan note Future Appointments Appointment Date:11/18/2022 10:30:00 AM Scheduled Provider: Location:[facility] Appointment Type:Surgical PAT FT Appointment Date:12/02/2022 11:45:00 AM Scheduled Provider: Location:[facility] Appointment Type:Surgery FT [facility] evaluation + Plan note Future Appointments Appointment Date:06/12/2024 11:00:00 AM Scheduled Provider:Ni OLIVARES MD Location:[facility] Appointment Type:URO Office Visit Future Scheduled Tests Laboratory* Total Protein 24 Hour Urine 02/14/23 [facility] Evaluation note* Diagnosis Onset Date Resolution Status Acute kidney injury superimp osed on chronic kidney disease acute Acute kidney insufficiency a cute CAD (coronary artery disease) acute CKD (chronic kidney disease) stage 3, GFR 30-59 ml/min acute Elevated PSA acute Hydronephrosis with ureteral calculus acute Hyperkalemia acute [id number] acute Left renal atrophy acute Metabolic acidosis acute Obstructive nephropathy acut e Preoperative cardiovascular examination acute Right ureteral stone acute 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 Diabetes chronic [facility] Work Phone: Evaluation noteNo assessment information available [facility] Work Phone: Hismwle general Narrative - Reported* Type Description Date Medical History DIABETES MELLITUS Medical History CORONARY ARTERY DISEASE Medical History MORBID OSESITY Surgical History HERNEA LOWER RIGHT ABDOMINAL Surgical History HEART ATTACK WITH STENT PLACEME NT IN THE LAD Surgical History KIDNEY STENTS X 2 Surgical History PROSTRATE BIO PAD Surgical History KIDNEY STENTS X2 Surgical History KIDNEY STONE REMOVAL Hospitalization History SEE ABOVE [employer] Other Hisxyvg general Narrative - Reported* Type Description Date Medical History DIABETES MELLITUS Medical History CORONARY ARTERY DISEASE Medical History MORBID OSESITY Medical History HYPERTENSION Medical History CHRONIC KIDNEY DISEASE STAGE 3 Medical History ANEMIA OF RENAL DISEASE Surgical History HERNEA LOWER RIGHT ABDOMINAL Surgical History HEART ATTACK WITH STENT PLACEME NT IN THE LAD Surgical History KIDNEY STENTS X 2 Surgical History PROSTRATE BIO PAD Surgical History KIDNEY STENTS X2 Surgical History KIDNEY STONE REMOVAL Hospitalization History SEE ABOVE [employer] Other History general Narrative - Reported* Type Description Date Medical History DIABETES MELLITUS Medical History CORONARY ARTERY DISEASE Medical History MORBID OSESITY Medical History HYPERTENSION Medical History CHRONIC KIDNEY DISEASE STAGE 3 Medical History ANEMIA OF RENAL DISEASE Medical History KNEE ARTHRITIS Surgical History HERNEA LOWER RIGHT ABDOMINAL Surgical History HEART ATTACK WITH STENT PLACEME NT IN THE LAD Surgical History KIDNEY STENTS X 2 Surgical History PROSTRATE BIO PAD Surgical History KIDNEY STENTS X2 Surgical History KIDNEY STONE REMOVAL Hospitalization History SEE ABOVE [employer] Other Hisbsmz general Narrative - Reported* Type Description Date Medical History DIABETES MELLITUS Medical History CORONARY ARTERY DISEASE Medical History MORBID OSESITY Medical History HYPERTENSION Medical History CHRONIC KIDNEY DISEASE STAGE 3 Medical History ANEMIA OF RENAL DISEASE Medical History KNEE ARTHRITIS Medical History ACUTE KIDNEY INJURY SUPERIMPOSED ON CHRONIC KIDNEY DISEASE Medical History HYPERKALEMIA Medical History METABOLIC ACIDOSIS Medical History HYDRONEPHROSIS WITH URETERAL WILEY CULUS Medical History CKD STAGE 3 Medical History 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 KIDNEY DISEASE Medical History LUNG NODULE Surgical History HERNEA LOWER RIGHT ABDOMINAL Surgical History HEART ATTACK WITH STENT PLACEME NT IN THE LAD Surgical History KIDNEY STENTS X 2 Surgical History PROSTRATE BIO PAD Surgical History KIDNEY STENTS X2 Surgical History KIDNEY STONE REMOVAL Hospitalization History SEE ABOVE Hospitalization History KELSEA, HYPERKALEMIA, METAB OLIC ACIDOSIS 08/11/2022 [employer] Other Hospital course Narrative No data available for this section [facility] Hospital Discharge instructions Additional Instructions Follow-up with your Primary Chief Embalmer in 4 weeks. Avoid NSAIDs for pain control. Call [facility] Scheduling on Tuesday at [phone] to arrange a follow up CT scan regarding lung nodule in 4 weeks. Maintain occlussive dressing to HD catheter removal site for 48 hours - return to the Emergency Room for oozing or drainage from catheter exit site, noticeable swelling or itching around neck, shortness of breath[facility] Progress note No data available for this section [facility] Chief Complaint and Reason for Visit Chief Complaint ACUTE RENAL FAILURE Reason for Visit Acute kidney injury superimposed on chronic kidney disease Acute kidney insufficiency CAD (coronary artery disease) CKD (chronic kidney disease) stage 3, GFR 30-59 ml/min Elevated PSA Hydronephrosis with ureteral calculus Hyperkalemia [id number] Left renal atrophy Metabolic acidosis Obstructive nephropathy Preoperative cardiovascular examination Right ureteral stone Type 2 diabetes mellitus with diabetic chronic kidney disease Diabetes Chief Complaint n20.0 Chief Complaint n20.0 N40.1 Chief Complaint n20.0 N40.1 N20.0 Advance Directives No Advanced Directives Records Found Advance Directive Response Recorded Date/ Time Advance Directives No May 4:27am Summary Purpose Family History No Family History Records Found Additional Source Comments REASON FOR VISIT (unrecogniz ed section and content) CKDCKD and HTNCKD and HTNCKD and HTNCKD and HTNCKD and HTN Care Teams (unrecognized sec tion and content) Team Status: Inactive Member Role Status Sarabjit Alfaro MD Primary Care Provider Active Hiral Interiano MD Admit Provider, Attending Provider Active Gita Mckinley RN Other Provider Active Lizzy Lin DO Other Provider Active Niharika Elias MD Other Provider Active Joel Larkin MD Other Provider Active Isidro Dow MD Other Provider Active Peter Manuel MD Other Provider Active Pauline Eldridge APRN Other Provider Active Peyton Barragan MD Other Provider Active Myesha Solo MD Other Provider Active Skinny Kiser MD Other Provider Active Jen Tamayo [facility]- Other Provider Active Aaliyah Mitchell MD Other Provider Active Alicia Perea MD Other Provider Active Milton Braun MD Other Provider Active Ni Olivares MD Other Provider Active Yogesh Omalley MD Other Provider Active Kiran Eldridge Jr, MD Other Provider Active Fátima Ivey MD Other Provider Active Shaquille Villarreal MD Other Provider Active Bipin Barclay MD Other Provider Active Team Status: Active Member Role Status Sarabjit Alfaro MD Primary Care Provider Active Team Status: Inactive Member Role Status Sarabjit Alfaro MD Primary Care Provider Active Ni Olivares MD Attending Provider Active (unrecognized sect ion and content) No Status Records FoundNo Status Records FoundNo Status Records FoundNo Status Records FoundNo Status Records Found INFORMATION SOURCE (unrecogn ized section and content) DATE CREATED AUTHOR 10/03/2022 [facility] DATE CREATED AUTHOR AUTHOR'S ORGANIZ ATION 12/07/2022 Coreen bran DATE CREATED AUTHOR AUTHOR'S ORGANIZ ATION 01/27/2023 [facility] DATE CREATED AUTHOR AUTHOR'S ORGANIZ ATION 07/05/2023 Gerardo [facility] DATE CREATED AUTHOR AUTHOR'S ORGANIZ ATION 07/07/2023 [facility] Goals (unrecognized section and content) Goals may be documented in a n alternate section FOR RECORDS PERTAINING TO PATIENTS WHO ARE OR HAVE BEEN ENROLLED IN A CHEMICAL DEPENDENCY/SUBSTANCEABUSE PROGRAM, SOME INFORMATION MAY BE OMITTED. This clinical summary was aggregated from multiple sources. Caution should be exercised in using it in the provision of clinical care. This summary normalizes information from multiple sources, and as a consequence, information in this document may materially change the coding, format and clinical context of patient data. In addition, data may be omitted in some cases. CLINICAL DECISIONS SHOULD BE BASED ON THE PRIMARY CLINICAL RECORDS. [employer] provides no warranty or guarantee of the accuracy or completeness of information in this document.
--- NOTE | 2023-07-19 11:43 | CT_ITS ---
[address] [address] Patient Name: GLADYS SMYTH MRN: [id number] date: 1940 Sex: M Assigned Patient Location: LAB Current Patient Location: [facility] Accession/Order Number: [id number] Exam Date: 07/19/2023 13:30 Report Date: 07/19/2023 14:00 At the request of: TRAY ALFARO Procedure: CT abdomen pelvis wo con EXAMINATION: CT abdomen pelvis wo con HISTORY: right lower quadrant abdominal pain R10.31 and diarrhea COMPARISON: 08/11/2022 TECHNIQUE: Axial, Coronal, and Sagittal images were created without IV contrast. Dose reduction techniques were achieved by using automated exposure control and/or adjustment of mA and/or kV according to patient size and/or use of iterative reconstruction technique. FINDINGS: LUNG BASES: Mild dependent opacities, atelectasis is favored LIVER: No enlargement, atrophy, abnormal density, or significant focal lesion. BILIARY: No dilatation or calcification. PANCREAS: No lesion, fluid collection, ductal dilatation, or atrophy. SPLEEN: Punctate calcifications, prior granulomatous process ADRENALS: Normal KIDNEYS: Right cortical hypodensity likely a cyst. Subtle 2 mm hyperdensity proximal right ureter axial image 87, no obstructive uropathy. Severe left renal cortical atrophy BOWEL/MESENTERY: Enlarged appearance of the appendix measuring up to 1.6 cm in diameter. Multiple echogenic foci, appendicoliths. Moderate periappendiceal mesenteric stranding and free fluid extending into the paracolic gutter. Nonobstructive bowel gas pattern. AORTA/VASCULAR: Ectasia of the distal abdominal aorta measuring up to 2.8 cm in diameter. Moderate atherosclerosis RETROPERITONEUM: No mass or adenopathy. LYMPH NODES: Increased number of normal-sized lymph nodes URINARY BLADDER: No visible focal wall thickening, lesion, or calculus. PELVIC ORGANS: Enlarged prostate gland measuring 6.2 cm ABDOMINAL WALL: No mass or hernia. BONES: Moderate degenerative spondylosis OTHER: Findings relayed to Dr. Alfaro at 2:[address]/CT abdomen pelvis wo con IMPRESSION: Acute appendicitis with underlying appendicoliths Electronically authenticated by: TYLER MONSIVAIS Date: 07/19/2023 14:00
[2023-07-19 11:58] LABS: Basophils Percent Auto 0.1 % (0.2-2.0); Hematocrit 36.3 % (42.0-54.0); Hemoglobin 11.9 g/dL (14.0-18.0); Immature Granulocytes Abs Auto 0.16 10^3/uL (0.00-0.03); Immature Granulocytes Pct Auto 0.9 % (0.0-0.5); Lymphocytes Absolute Auto 1.1 10^3/uL (1.2-3.8); Lymphocytes Percent Auto 6.7 % (20.5-60.0); Mean Corpuscular HGB Conc 32.8 g/dL (29.9-35.2); Mean Corpuscular Hemoglobin 32.9 pg (25.9-34.0); Mean Corpuscular Volume 100.3 fL (80.0-94.0); Monocytes Absolute Auto 1.8 10^3/uL (0.3-0.8); Monocytes Percent Auto 10.3 % (1.7-12.0); Platelet Count 220 10^3/uL (150-450); Red Blood Count 3.62 10^6/uL (4.70-6.10); Red Cell Distribution Width 13.5 % (11.0-15.0); White Blood Count 17.1 10^3/uL (4.0-11.0)
[2023-07-19 12:24] LABS: Alanine Aminotransferase 84 U/L (16-63); Albumin Globulin Ratio 0.6; Albumin Level 2.8 g/dL (3.4-5.0); Alkaline Phosphatase 74 U/L (46-116); Anion Gap 19.2; Aspartate Amino Transferase 107 U/L (15-37); BUN Creatinine Ratio 20.8; Carbon Dioxide 19.8 mmol/L (21.0-32.0); Chloride 102 mmol/L (98-107); Estimated GFR (African America 20 (>=60); Estimated GFR (Non-African Ame 16 (>=60); Globulin 4.7 g/dL; Sodium 137 mmol/L (136-145); Total Protein 7.5 g/dL (6.4-8.2)
[2023-07-19 13:10] LABS: Glucometer 39 mg/dL (74-106)
[2023-07-19 13:17] LABS: Glucose 32 mg/dL (74-106)
[2023-07-19 13:26] LABS: Glucometer 47 mg/dL (74-106)
[2023-07-19 13:30] LABS: Glucometer 59 mg/dL (74-106)
--- NOTE | 2023-07-19 13:53 | PC.NURSE ---
1255 Called to waiting room for c/o pt with low blood sugar. Pt with him and states that he is diabetic and NPO for CT. Pt is leaning back in chair and not able to talk sensibly with slurring. Skin pale wm and dry. 1258 Obtained glucometer and blood sugar check was 39. Pt had already been given hard candy SL. Pt given OJ 4 oz and drank all of it. Pt able to speak slightly more sensible now. Pt assisted x 3 to wheelchair and taken back to holding area. 1315 Another blood sugar check was 47. Pt given 4 oz orange juice with 1 packet of sugar mixed. Pt able to talk sensibly and states that he had a little landon nuttie bar for breakfast this morning and then has been NPO for test. Pt states that he has had diarrhea since Tuesday and then started with RLQ abdominal pain. [address] Elke Gray and he states that he would like pt to go to ER for CR evaluation as well as glucose monitoring. Pt and made aware. 1328 Glucose check is 59. [address] for exam and completed. 1340 Pt asissted to cart and taken to room 8. Report given to Brittany Yi
== END 2023-07-19 11:14 | disposition home or self-care (01) ==
LOC: LAB 11:14
PROVIDERS: PCP Family Medicine; Visit Provider Family Medicine
DX: R10.31 Right lower quadrant pain (principal); K35.80 Unspecified acute appendicitis
CPT/HCPCS: 36415; 74176; 80053; 85025; Q9966

== ENCOUNTER 2023-07-19 13:45 | Inpatient (IN) | payer MEDICARE, SELFPAY ==
[2023-07-19] VITALS (36 sets, daily range): BP systolic 107–162; BP diastolic 44–80; PULSE 92–117; RESP 18–37; TEMP 36.8–39; O2SAT 85–98; BMI 32.9; BMI 35.7
[2023-07-19 13:52] LABS: Glucometer 68 mg/dL (74-106)
--- NOTE | 2023-07-19 13:56 | ECG_ITS ---
[facility] Test Date: 2023-07-19 Pat Name: GLADYS SMYTH Department: Room: - Gender: Male [employer]related [employer]: : 1940 Requested By: TRAY ALFARO Order Number: [id number] Reading MD: TRAY ALFARO Measurements Intervals [place] Rate: 92 P: 42 SD: 162 QRS: 20 QRSD: 100 T: 90 QT: 332 QTc: 382 Interpretive Statements 1100 Sinus rhythm Electronically Signed On 07-22-2023 6:22:44 EST by TRAY ALFARO
[2023-07-19] MEDS: 0.9 % SODIUM CHLORIDE 1,000 ML 999 ML IV (14:12)
[2023-07-19] MEDS: DEXTROSE 50 %-WATER 25 GM/50 ML SYRINGE IV ×3 (14:12→23:22)
--- OUTSIDE RECORDS SUMMARY | 2023-07-19 14:12 | XMS_ITS | CCD ---
Author Name Unknown Address [address] [place] [address] Organization [facility] Care Team Providers Care Production Tech Name Role Phone Tray Alfaro Primary Care Physician Alicia Perea Unavailable MD Tray Alfaro Primary Care Provider MD Hiral Interiano Admit Provider MD Hiral Interiano Attending Provider ALISHA [facility] Other Provider Unavailable DO Lizzy Lin Other [...] Other Provider MD Milton Braun Other Provider [phone] MD Ni Olivares Other Provider MD Yogesh Omalley Other Provider MD Kiran Eldridge Jr Other Provider [phone] MD Fátima Ivey Other Provider MD Shaquille Villarreal Other Provider [phone] MD Bipin Barclay Other Provider BRIT, ALICIA [...] Consulting Unavailable YOGESH BYERS Consulting Unavailable ILA GALLEGO Consulting Unavailable BRIT, ALICIA Attending Unavailable BRIT, [...] Unavailable MD Tray Alfaro Primary Care Provider [phone] MD Ni Olivares Attending Provider [phone] Ni OLIVARES P Referring Unavailable COOKRidgeNi P [...] Eruption of skin (disorder) [facility] (13 sources) Penicillin; Translations: [penicillin] Drug Allergy Eruption of skin (disorder) [employer] Other (6 sources) Ciprofloxacin Drug Allergy Unknown [facility] [employer] Other (7 sources) Penicillins; Translations: [Penicillins] Allergy to substance 06-14-20 14 [facility] (1 source) Ciprofloxacin Drug Allergy 09-14-20 20 [facility] (3 sources) levothyroxine; Translations: [levothyroxine] Drug Allergy Swelling of oral cavity structure (finding) [facility] (3 sources) liothyronine; Translations: [liothyronine] Drug Allergy Swelling of oral cavity structure (finding) [facility] (1 source) No Known Medication Allergies; Translations: [No Known Medication Allergies] Propensity to adverse reactions (disorder) [facility] (1 source) Ciprofloxacin Drug Allergy 08-13-19 [facility] Repository Medications Current Medications Medication Drug Class(es) Dates Sig (Normalized) Sig (Original) acetaminophen 325 mg / HYDROcodone bitartrate 5 mg oral tablet (1 source) Opioid Agonist Start: 10-07-2022 End: 10-09-2022 acetaminophen-hyd rocodone 325 mg-5 mg oral tablet 1 tab(s), Oral, q4hr Pain for 2 day(s), 7 tab(s), Refill(s) 0, [id number], 175, cm, 09/15/22 5:20:00 EDT, Height/Length Dosing, [...] Status: Ordered take 1 capsule by mo [facility] every twenty-four hours Vitamin D3 125 MCG [...] # 2 cap(s), Refills(s) 0, Pharmacy: [facility] #[id number], 177, cm, 11/18/22 13:54:00 EDT, Height/Length Dosing, [...] activity, # 30 tab(s), Refills(s) 2, [facility], 174, cm, 08/18/20 12:16:00 EST, Height/Length [...] Date: 04/11/19 Status: Ordered 60 actuat tiotropium 0.49669 mg/actuat inhalation spray (11 sources) Anticholinergic Start: [...] Coronary arteriosclerosis; Translations: [Atherosclerotic heart disease of [place] coronary artery without angina pectoris] Onset: 3 [...] Onset: 10-14-2022 Episodic Other aftercare (1 source) roasterman (current) use of aspirin; Translations: [RETIREMENT CURRENT USE OF ASPIRIN] Onset: 08-13-2022 Episodic Other aftercare (1 source) Other half-way (current) drug therapy; Translations: [OTH RETIREMENT CURRENT DRUG THERAPY] Onset: 08-13-2022 Episodic Other [...] Range Facility [facility] 07-05-2023 Lab Reports [id number]#1.00TIFF Normal [facility] Lab Reports [id number]#1.00TIFF Normal [facility] Blood Urea Nitrogenon 2023 Urea nitrogen [Mass/Vol] 31 mg/dL High 7-25 [facility] Comment on above: Performed By: #### L YTES, CA, URIC, PTH, BUN, CREAT ####[facility] [address] [place] [address] [facility] Calciumon 07-02-2023 Calcium [Mass/Vol] 8.8 mg/dL Normal 8.6-10.3 [facility] Comment on above: Performed By: #### L YTES, CA, URIC, PTH, BUN, CREAT ####[facility] [id number] [place] [id number] [facility] Calcium [Mass/volume] in Ser um or PlasmaOrdered By: Ni Olivares on 07-02-2023 Calcium [Mass/Vol] 8.8 mg/dL 8.6-10.3 [facility] Carbon dioxide, total [Moles /volume] in Serum or PlasmaOrdered By: Ni Olivares on 07-02-2023 CO2 [Moles/Vol] 24.0 mmol/L 21.0-31.0 [facility] Chloride [Moles/volume] in S paty or PlasmaOrdered By: Ni Olivares on 07-02-2023 Chloride [Moles/Vol] 107 mmol/L 98-107 [facility] Creatinineon 07-02-2023 Creatinine [Mass/Vol] 2.05 mg/dL High 0.70-1.30 [facility] Comment on above: Performed By: #### L YTES, CA, URIC, PTH, BUN, CREAT ####[place] [address] [place] [address] [place] GFR/1.73 sq M.predicted MDRD (S/P/Bld) [Vol rate/Area] 32.151 mL/min/{1.73_m2} Normal [facility] Comment on above: Performed By: #### L YTES, CA, URIC, PTH, BUN, CREAT ####[place] [address] [place] [address] [facility] Creatinine [Mass/volume] in Serum or PlasmaOrdered By: Ni Olivares on 07-02-2023 Creatinine [Mass/Vol] 2.05 mg/dL 0.70-1.30 [facility] Electrolyteson 07-02-2023 Anion gap [Moles/Vol] 12.0 mmol/L Normal 6.0-15.0 [facility] Comment on above: Performed By: #### L YTES, CA, URIC, PTH, BUN, CREAT ####[address] [address] [facility] Chloride [Moles/Vol] 107 mmol/L Normal 98-107 [facility] Comment on above: Performed By: #### L YTES, CA, URIC, PTH, BUN, CREAT ####[address] [address] [place] [address] [place] CO2 [Moles/Vol] 24.0 mmol/L Normal 21.0-31.0 [facility] Comment on above: Performed By: #### L YTES, CA, URIC, PTH, BUN, CREAT ####[address] [address] [facility] Potassium [Moles/Vol] 5.0 mmol/L Normal 3.5-5.1 [facility] Comment on above: Performed By: #### L YTES, CA, URIC, PTH, BUN, CREAT ####[facility] [place] [address] [facility] Sodium [Moles/Vol] 138 mmol/L Normal 136-145 [facility] Comment on above: Performed By: #### L YTES, CA, URIC, PTH, BUN, CREAT ####[address] [address] [place] [address] [facility] No Panel InformationOrdered By: Ni Olivares on 07-02-2023 Estimated GFR (CKD-EPI) 32.151 mL/Min [facility] Creatinine Clearance (Chem N/A [facility] Parathyrin.intact [Mass/volu me] in Serum or PlasmaOrdered By: Ni Olivares on 07-02-2023 Parathyrin.intact [Mass/Vol] 55.4 pg/mL [facility] Parathyroid Hormone Intacton 07-02-2023 Parathyroid Hormone Intact 55.4 pg/mL Normal [facility] Comment on above: Result Comment: PERF ORMED BY: [facility] [address] [place] [id number] PATHOLOGIST DRAFTER [employer]IE[employer] DESIGN DIANDRA LACY M.D. Performed By: #### L YTES, CA, URIC, PTH, BUN, CREAT ####[place] [address] [place] [address] [facility] Potassium [Moles/volume] in Serum or PlasmaOrdered By: Ni Olivares on 07-02-2023 Potassium [Moles/Vol] 5.0 mmol/L 3.5-5.1 [facility] Serum or plasma anion gap de terminationOrdered By: Ni Olivares on 07-02-2023 Anion gap [Moles/Vol] 12.0 mmol/L 6.0-15.0 [facility] Sodium [Moles/volume] in Ser um or PlasmaOrdered By: Ni Olivares on 07-02-2023 Sodium [Moles/Vol] 138 mmol/L 136-145 [facility] Urate [Mass/volume] in Serum or PlasmaOrdered By: Ni Olivares on 07-02-2023 Urate [Mass/Vol] 8.2 mg/dL 4.4-7.6 [facility] Urea nitrogen [Mass/volume] in Serum or PlasmaOrdered By: Ni Olivares on 07-02-2023 Urea nitrogen [Mass/Vol] 31 mg/dL 7-25 [facility] Uric Acidon 07-02-2023 Urate [Mass/Vol] 8.2 mg/dL High 4.4-7.6 [facility] Comment on above: Result Comment: PERF ORMED BY: [facility] [address] [place] [id number] PATHOLOGIST [employer]RAFTER [employer] DIANDRA LACY M.D. Performed By: #### L YTES, CA, URIC, PTH, BUN, CREAT ####[address] [place] [address] [facility] Lab Reportson 07-01-2023 Lab Reports [id number]#1.00TIFF Normal [facility] PSA Total (Not a Screen)on 0 06-28-2023 PSA Total (Not a Screen) 4.730 ng/mL High 0.000-4.00 0 [facility] Comment on above: Result Comment: Seri al tumor marker results determined by assays using different manufacturers or methods may not be comparable. [facility] hand roller and method: iwoca DXI, CHEMILUMINESCENT IMMUNOASSAY. PERFORMED BY: [facility] [address] [place] [address] PATHOLOGIST [employer]RAFTER [employer] DIANDRA LACY M.D. Performed By: #### P SATOTAL ####[address] [place] [address] [facility] Prostate specific Ag [Mass/v olume] in Serum or PlasmaOrdered By: Ni Olivares on 06-28-2023 Prostate specific Ag [Mass/Vol] 4.730 ng/mL 0.000-4.00 0 [facility] Comment on above: Serial tumor marker results determined by assays using different manufacturers or methods may not be comparable.[facility] hand roller and method:iwoca DXI, CHEMILUMINESCENT IMMUNOASSAY. RAD - Ultrasound Reporton RAD - Ultrasound Report [id number]#1.00TIFF Normal [facility] Lab Reportson 06-16-2023 Lab Reports [id number]#1.00TIFF Normal [facility] Lab Reports [id number]#1.00TIFF Normal [facility] Lab Reports [id number]#1.00TIFF Normal [facility] Screenson 06-16-2023 Screens [id number]#1.00TIFF Normal [facility] US renal BIon 06-16-2023 US renal BI [facility] [place] [address] Ultrasound Report Signed Patient: Victorino Smyth MR#: [id number] : 1940 Acct:[id number] Age/Sex: 82 / M ADM Date: 06/16/23 Loc: Room: Type: [facility] Attending Dr: Ni Olivares MD Ordering [...] Rehan Fuentes M.D.06/16/2023 4:02 PM Dictation Location: [place] [address] Tech: Sue Chiu Transcribed By: [facility] 06/16/23 1602 Dictated By: Rehan Fuentes DO 06/16/23 1554 Signed By: 06/16/23 1602 [facility] Ambulatory Visit Summaryon 1 08-15-2022 Ambulatory Visit Summary VICTORINO SMYTH :1940 Visit Date:06/14/2023 Ambulatory Visit Instructions Your Diagnosis Kidney stone BPH with urinary obstruction Prostate cancer Tests Performed Urnls Dip Stick Auto w/o Microscopy POC 08679 US Renal -- Results Pending -- Please [...] CARLOS OLIVEROS, BHUPINDER Merritt When: Where: [address] [place] [address]- Medications What How Much When Instructions Unchanged [...] or concerns Unchanged (more content not included)... [facility] Formson 06-14-2023 Forms [id number]#1.00TIFF [facility] Patient Educationon 06-14-20 23 Patient Education Nephrology [...] ? 8 oz (237 mL) of milk, oiypusr-afteqqckktbu-uliic milk, and calcium-fortifiedfruit juice. Calcium-fortified means that [...] Spinach (cooked), rhubarb, beets, sweet potatoes, and Swazi chard. ? Peanuts. ? Potato chips, zimbabwean fries, and baked potatoes with skin on. ? Nuts and nut products. ? Chocolate. ? If you regularly take a diuretic medicine, make sure to eat at least 1 or 2 servings of fruits or vegetables that are high in potassium each day. These include: ? Avocado. ? Banana. ? [place], prune, carrot, or tomato juice. ? Baked [...] fish oil, or vitamin B6. ? Take mymx-enk-bszdnrv and prescription medicines only as told by your health care provider. These include supplements. What foods sh (more content not included)... Normal [facility] Urology Office/Clinic Noteon 06-14-2023 Urology Office/Clinic [...] with voice recognition artificial intelligence software, specifically [employer], [employer] and or [employer]. Substitutions may have occurred due to the [...] Information CARLOS OLIVEROS, Ni P, URL [address] [place] [address]- Additional Instructions: 1 year Patient Education Dietary Guidelines to Help Prevent Kidney Stones I, Dahiana Joseph, personally scribed for Dr. Olivares on 06/14/2023 [...] Hydronephrosis with uretera (more content not included)... [facility] Comment on above: Result Comment: Elec tronically Signed By: Ni OLIVARES MD\.br\Date and Time Signed: 06/14/23 09:55 EST\.br\Electronically Co-Signed By: Dahiana Joseph\.br\Date and Time Co-Signed: 06/14/23 09:48 EST\.br\Electronically Co-Signed By: Dhaiana Joseph\.br\Date and Time Co-Signed: 06/14/23 09:50 EST Office Visiton 01-26-2023 Follow-up visit [id number] Ruben Smyth 1940 M Date Provider Department Center 01/26/2023 JENNIFER SMITH FABIOLA Mcneill [facility] Family History Problem Relation Age of Onset No Known Problems Mother No Known Problems Father Family Status - Relation Status Age at Mother Father Level of Service:81532 DE OFFICE/OUTPATIENT ESTABLISHED LOW MDM 20-29 MIN [facility] Consent for Procedure/Surger yon 12-21-2022 Consent for Procedure/Surgery [id number]#1.00CD:127 Normal [facility] IntraOperative Documentson 0 12-21-2022 IntraOperative Documents [id number]#1.00CD:127 [facility] Consent for Treatmenton 11-26 Consent for Treatment [id number]#1.00CD:127 [facility] Inpatient Patient Summaryon 12-20-2022 Inpatient Patient Summary [place] [id number] Clinical Summary Person Information Name: VICTORINO SMYTH Age: 82 Years : 1940 Sex: Male PCP: Tray Alfaro MD Marital Status: Race: White Ethnicity: Non- or Language: Fijian Visit Id: Visit Reason: RIGHT KIDNEY STONE Speciality: Acuity: Enc Type: Outpatient Med Service: Surgery Arrival: 12/20/2022 15:00:15 Discharge: Dispo Type: Address: [address] [place] [phone] Provider Notes: Diagnosis: Problems Active Flank pain [...] up: With: Address: When: Ni OLIVARES [address] [place] [address], [address], [place] [address] [facility] (1) Within 6 months Comments: Call for [...] Cystoscopy with Stent Removal Discharge Instructions (Custom) [facility] Main OR Intraoperative Recor don 12-20-2022 Main OR Intraoperative Record IntraOp Document Type FTURO Summary Primary Physician: Ni OLIVARES MD Finalized Date/Time: 12/20/22 16:29:12 Pt. Name: VICTORINO SMYTH [place] RuedaB./Sex: 1940 Male Med Rec #: [id number] Physician: Ni OLIVARES MD Financial #: [id number] Pt. Type: O Room/Bed: / Admit/Disch: 12/20/22 [...] Shabnam Garcia Role Performed Surgeon - Primary Tobacco Checkout Clerk - Primary Scrub - Primary Time In [...] 16:24 Maggie Menendez RN 12/20/22 16:29 Normal [facility] Main OR Preoperative Recordo n 12-20-2022 Main OR Preoperative Record Holding Area Document Type FTURO Summary Primary Physician: Ni OLIVARES MD Finalized Date/Time: 12/20/22 15:39:13 Pt. Name: HAJA VICTORINODANYELLE Dubon/Sex: 1940 Male Med Rec #: [id number] Physician: Ni OLIVARES MD Financial #: [id number] Pt. Type: O Room/Bed: / Admit/Disch: 12/20/22 [...] By: Janay Gonzales RN 12/20/22 15:39 Normal [facility] Operative Reporton Operative Report Patient: SHERYL [...] considering a repeat 24-hour urine/metabolic work-up. Normal [facility] Comment on above: Result Comment: Elec tronically Signed By: Ni OLIVARES MD\.br\Date and Time Signed: 12/20/22 16:29 EDT Outpatient Surgery Discharge Instructionon 12-20-2022 Outpatient Surgery Discharge Instruction [place] [id number] Patient Discharge Instructions PERSON INFORMATION Name: VICTORINO [...] up: With: Address: When: Ni OLIVARES [address], [address], [facility] [address] [place] [id number] [facility] (1) Within 6 months Comments: Call for [...] to serve you. Thank you for choosing [facility] Normal [facility] Postoperative Documentson Postoperative Documents [id number]#1.00CD:127 Normal [facility] Calculus Analysison 12-09-19 23 Color (Stone) Olsen Invalid Interpretation Code [facility] Comment on above: Performed By: #### 2 [id number] #### [facility] [address] [place] [address] Composition Comment Invalid Interpretation Code [facility] Comment on above: Result Comment: Perc entage (Represents the % composition) Performed By: #### 2 [id number] #### [facility] [address] [place] [address] Disclaimer: Comment Invalid Interpretation Code [facility] Comment on above: Result Comment: This test was developed and its performance characteristics determined by [facility]. It has not been cleared or approved by the Food and Drug Administration. Performed at: [address] [id number] PhD Jarvis Bauman Performed By: #### 2 [id number] #### [facility] [address] [place] [address] Laboratory comment Dangelo (Report) Comment Invalid Interpretation Code [facility] Comment on above: Result Comment: Padmini gutierrez questions regarding Calculi Analysis contact [facility] at: [phone]. Performed By: #### 2 [id number] #### [facility] [address] [place] [address] Please Note: Comment Invalid Interpretation Code [facility] Comment on above: Result Comment: Calc salazar report will follow via computer, mail or press supervisor delivery. Performed By: #### 2 [id number] #### [facility] [address] [place] [address] Size (Stone) [Entitic vol] 3x5 Invalid Interpretation Code [facility] Comment on above: Result Comment: Mult iple pieces received. Dimensions of the largest piece reported. Performed By: #### 2 [id number] #### [facility] [address] [place] [address] Specimen source subject Nom Comment Invalid Interpretation Code [facility] Comment on above: Result Comment: Righ t Ureter Performed By: #### 2 [id number] #### [facility] [address] [place] [address] Stone Photo Comment Invalid Interpretation Code [facility] Comment on above: Result Comment: Phot ograph will follow under a separate cover Performed By: #### 2 [id number] #### [facility] [address] [place] [address] Urate (Stone) [Mass fraction] 100 % Invalid Interpretation Code [facility] Comment on above: Performed By: #### 2 [id number] #### [facility] [address] [place] [address] Weight (Stone) 131 mg Invalid Interpretation Code [facility] Comment on above: Performed By: #### 2 [id number] #### [facility] [address] [place] [address] Pre-Certification Formon Pre-Certification Form [id number]#1.00CD:127 [facility] IntraOperative Documentson 0 12-06-2022 IntraOperative Documents [id number]#1.00CD:127 [facility] Consent for Anesthesiaon Consent for Anesthesia [id number]#1.00CD:127 [facility] Discharge Instructionson Discharge Instructions [id number]#1.00CD:127 [facility] IntraOperative Documentson 0 12-03-2022 IntraOperative Documents [id number]#1.00CD:127 [facility] IntraOperative Documents [id number]#1.00CD:127 [facility] Main OR Intraoperative Recor don 12-03-2022 Main OR Intraoperative Record [facility] Preoperative Documentson Preoperative Documents [id number]#1.00CD:127 [facility] Preoperative Documents [id number]#1.00CD:127 [facility] Preoperative Documents [id number]#1.00CD:127 [facility] Progress Note-Physicianon Progress Note-Physician Patient: VICTORINO [...] meets criteria ( To home ). Normal [facility] Comment on above: Result Comment: Elec [...] Problems Acute kidney failure / SNOMED CT 11121231 / Confirmed BPH with urinary obstruction / SNOMED CT 4260561777 / Confirmed Chronic obstructive pulmonary disease (COPD) / SNOMED CT 62087695 / Confirmed Coronary artery disease / SNOMED CT 36761079 / Confirmed Anticoagulated / SNOMED CT 156240682 / Confirmed Erectile dysfunction / SNOMED CT 7576810546 / Confirmed Flank pain / SNOMED CT 383892245 / Confirmed H/O: hypothyroidism / SNOMED CT 026154727 / Confirmed Hydronephrosis / SNOMED CT 40331209 / Confirmed Hydronephrosis with ureteral calculus / SNOMED CT 2693648978 / Confirmed Hyperlipidemia / SNOMED CT 13651029 / Confirmed Hyperplastic colon polyp / SNOMED CT 1215398928 / Confirmed Hypertension / SNOMED CT 3073916079 / Confirmed Kidney stone / SNOMED CT 109481998 / Confirmed Prostate cancer / SNOMED CT 0665148617 / Confirmed Myocardial infarct / SNOMED CT 02925230 / Confirmed BPH associated with nocturia / SNOMED CT 8653343351 / Confirmed Occult blood in stools / SNOMED CT 11657001 / Confirmed Postprandial diarrhea / SNOMED CT 67549735 / Confirmed Elevated PSA / SNOMED CT 8206588936 / Confirmed Urinary retention / SNOMED CT 711783493 / Confirmed Rheumatoid arthritis / SNOMED CT 653343588 / Confirmed DM (diabetes mellitus), type 2 / SNOMED CT 735663753 / Confirmed Ureteral stone / SNOMED CT 95758851 / Confirmed Histories Procedure history: ESWL of kidney (03090174) on 10/07/2022 at 82 Years. Transurethral resection of prostate (101992521) on 08/01/2019 at 79 Years. Biopsy of prostate (251117094) on 07/04/2019 at 78 Years. cystoscopy, bilateral, ureteroscopy, laser lithotripsy on 06/27/2019 at 78 Years. TRIGGER FINGER RELEASE. Neuroplasty and/or transposition; median nerve at carpal tunnel (84081). Percutaneous transluminal coronary angioplasty; single major coronary artery or branch (27506). Patient has a coronary artery stent (Peri2) [...] adequate air exchange. Cardiovascular: Regular rhythm. Plan [place] [employer] Anesthesiologists (ASA) physical status classification: Class III. Anesthetic Preoperative Plan: Anesthesia General. Normal [facility] Comment on above: Result Comment: Elec tronically Signed By: Reji Hidalgo DO, Ty Khanna\.br\Date and Time Signed: 12/03/22 08:21 EDT Capillary Glucose POCon Glucose [Mass/Vol] 82 mg/dL Normal 55-99 [facility] Comment on above: Result Comment: Jackelin quach RN/ Performed By: #### 2 [id number] #### [facility] [address] [place] [address] Consent for Procedure/Surger yon 12-02-2022 Consent for Procedure/Surgery [id number]#1.00CD:127 Normal [facility] Consent for Treatmenton Consent for Treatment [id number]#1.00CD:127 Normal [facility] Discharge Instructionson Discharge Instructions VICTORINO SMYTH [...] When: Comments: Call for followup appointment Where: [facility] [place] [address] [address]- Business (1) Medications What How Much When Instructions Next Dose New doxycycline (doxycycline hyclate 100 mg Cap) 1 Capsules By Mouth 2 times a day Duration: 5 Days Pickup at [facility] #[facility]31 Unchanged albuterol (Ventolin Diskus) 2 Puffs Inhalation [...] needed for Itching Pharmacy Information [id number]: [address], [place] [id number] [phone] Allergies ciprofloxacin (Rash) levothyroxine (Mouth swelling) liothyronine (Mouth (more content not included)... Normal [facility] Comment on above: Result Comment: Elec tronically Signed By: Shae BRITO, Jazmin Eli\.ruba\Date and Time Signed: 12/02/22 12:25 EDT H&P Updateon 12-02-2022 H&P Update [id number]:127 Normal [facility] Inpatient Patient Summaryon 12-02-2022 Inpatient Patient Summary [address] [address] [facility] Clinical Discharge Instructions PERSON INFORMATION Name: VICTORINO SMYTH PHYSICIANS Admitting Physician: Ni OLIVARES MD Attending Physician: Ni OLIVARES MD PCP: Tray Alfaro MD Discharge Diagnosis: Comment: PATIENT EDUCATION INFORMATION Instructions: Jutn-Afxw-fu Utereroscopy,Lithotripsy, Stone Extraction, Stent Placement (Custom) Medication Leaflets: Follow up: With: Address: When: Ni OLIVARES [address] [place] [address], [address], [place] [id number] [facility] (1) Comments: Call for followup appointment MEDICATION LIST New Medications [id number], [address], [place] [id number], [phone] doxycycline (doxycycline hyclate 100 mg Cap) 1 [...] apply to chin, and forhead Comment: Isamar [facility] Main OR PACU I Recordon Main OR PACU I Record PACU Phase I Docum ent Type FT Summary Primary Physician: Ni OLIVARES MD Finalized Date/Time: 12/02/22 12:58:10 Pt. Name: VICTORINO SMYTH Bryan Chatman./Sex: 1940 Male Med Rec #: [id number] Physician: Ni OLIVARES MD Financial #: [id number] Pt. Type: A Room/Bed: [facility] Admit/Disch: 12/02/22 09:31:57 - Institution: Case Times [...] By: Piedad Blanco RN 12/02/22 12:58 Normal [facility] Main OR PACU II Recordon Main OR PACU II Record PACU Phase II Doc ument Type FT Summary Primary Physician: Ni OLIVARES MD Finalized Date/Time: 12/02/22 13:45:57 Pt. Name: SMYTHVICTORINO./Sex: 1940 Male Med Rec #: [id number] Physician: Ni OLIVARES MD Financial #: [id number] Pt. Type: A Room/Bed: [facility] Admit/Disch: 12/02/22 09:31:57 - Institution: Case Times [...] By: Jazmin Kaufman RN 12/02/22 13:45 Normal [facility] Main OR Preoperative Recordo n 12-02-2022 Main OR Preoperative Record PreOp Document Type FT Summary Primary Physician: Ni OLIVARES MD Finalized Date/Time: 12/02/22 11:00:33 Pt. Name: SMYTHVICTORINO./Sex: 1940 Male Med Rec #: [id number] Physician: Ni OLIVARES MD Financial #: [id number] Pt. Type: Room/Bed: [place] [address] Admit/Disch: 12/02/22 09:31:57 - Institution: Case Times [...] By: Soraya Borrego RN 12/02/22 11:00 Normal [facility] Monitor Recordon 12-02-2022 Monitor Record [id number]#[id number]:127 Normal [facility] Monitor Record [id number]#1.00CD:127 Normal [facility] Operative Reporton 3 Operative Report Patient: [...] under fluoroscopic guidance Anesthesia: General, LMA, Dr. Mendoza, 2% Xylocaine jelly per urethra Indications: This [...] jelly placed per urethra. A well-lubricated 22 Haitian is urethroscope with 30 degree lens then [...] backloaded over the wire and a 4.7 Haitian Bard inlay double-J stent is passed into [...] ml. Complications: None. Anesthesia type: General. Normal [facility] Comment on above: Result Comment: Elec tronically Signed By: Ni OLIVARES MD\.br\Date and Time Signed: 12/02/22 11:51 EDT Outpatient Surgery Discharge Instructionon 12-02-2022 Outpatient Surgery Discharge Instruction [place] [id number] Patient Discharge Instructions PERSON INFORMATION Name: VICTORINO [...] up: With: Address: When: Ni OLIVARES [address] [place] [address], [address], [place] [phone] [facility] (1) Comments: Call for followup appointment Pharmacy Information: You may receive a survey from [employer] asking you to rate your care experience. Your feedback is important and will help us understand what we do well and how we can improve the quality of care we provide to you, your loved ones and our community. It?s an honor to serve you. Thank you for choosing [facility] HERE ARE THE MEDICATION CHANGES THAT OCCURRED DURING YOUR HOSPITAL STAY New Medications [id number], [address], [place] [id number], [phone] doxycycline (doxycycline hyclate 100 mg Cap) 1 [...] forhead PATIENT EDUCATION INFORMATION Instructions: [facility] [place], [place] Dr. Ni Omalley Post-operative Instructions for [...] swelling, kidn (more content not included)... Normal [facility] Patient Education - Texton 0 12-02-2022 [...] MDI an (more content not included)... Normal [facility] XR Abdomen 1 Viewon 12-03-19 23 [...] in mGy = na DAP = na [facility] Consultation Noteon 11-29-19 Consultation Note [id number]#[id number]:127 [facility] Outside Recordson 11-24-2022 Outside Records [id number]#[id number]:127 [facility] C Urineon 11-20-2022 Bacteria identified Cx Nom [...] Locations R1: This test was performed at: [facility], [address] [place] [address], [address] , [place], [facility] Comment on above: Performed By: #### 1 [id number], [id number] ####[facility] [address] [place] [address] Albuminon 11-18-2022 Albumin [Mass/Vol] 4.0 g/dL Normal 3.3-5.0 [facility] Comment on above: Performed By: #### 2 601137, 0644286, 4423864, 97454569, 671574934, 7688670, 5190454, 7517461, 9290341 ####[facility] [address] [place] [address] Auto Diffon 11-18-2022 Basophils/100 WBC (Bld) 0.2 % Normal 0.0-2.0 [facility] Comment on above: Order Comment: Order Added by Discern Expert. Performed By: #### 2 [id number] #### [facility] [address] [place] [address] Basophils/Leukocytes Auto (Bld) [Pure # fraction] 0.0 E9/L Normal 0.0-0.2 [facility] Comment on above: Order Comment: Order Added by Discern Expert. Performed By: #### 2 [id number] #### [facility] [address] [place] [address] Eosinophils/100 WBC (Bld) 0.1 % Normal 0.0-8.0 [facility] Comment on above: Order Comment: Order Added by Discern Expert. Performed By: #### 2 [id number] #### [facility] [address] [place] [address] Eosinophils/Leukocytes Auto (Bld) [Pure # fraction] 0.0 E9/L Normal 0.0-0.5 [facility] Comment on above: Order Comment: Order Added by Discern Expert. Performed By: #### 2 [id number] #### [facility] [address] [place] [address] Lymphocytes/100 WBC (Bld) 8.6 % Low 14.0-50.0 [facility] Comment on above: Order Comment: Order Added by Discern Expert. Performed By: #### 2 [id number] #### [facility] [address] [place] [address] Lymphocytes/Leukocytes Auto (Bld) [Pure # fraction] 0.9 E9/L Low 1.0-4.0 [facility] Comment on above: Order Comment: Order Added by Discern Expert. Performed By: #### 2 [id number] #### [facility] [address] [place] [address] Monocytes/100 WBC (Bld) 7.1 % Normal 4.0-14.0 [facility] Comment on above: Order Comment: Order Added by Discern Expert. Performed By: #### 2 [id number] #### [facility] [address] [place] [address] Monocytes/Leukocytes Auto (Bld) [Pure # fraction] 0.7 E9/L Normal 0.2-1.0 [facility] Comment on above: Order Comment: Order Added by Discern Expert. Performed By: #### 2 [id number] #### [facility] [address] [place] [address] Neutrophils/100 WBC (Bld) 84.0 % High 36.0-75.0 [facility] Comment on above: Order Comment: Order Added by Discern Expert. Performed By: #### 2 [id number] #### [facility] [address] [place] [address] Neutrophils/Leukocytes Auto (Bld) [Pure # fraction] 8.7 E9/L High 2.0-7.5 [facility] Comment on above: Order Comment: Order Added by Discern Expert. Performed By: #### 2 [id number] #### [facility] [address] [place] [address] BMP 11-18-2022 Anion gap [Moles/Vol] 12 mmol/L Normal 6-16 [facility] Comment on above: Performed By: #### 2 [id number] #### [facility] [address] [place] [address] Calcium [Mass/Vol] 9.3 mg/dL Normal 8.9-11.1 [facility] Comment on above: Performed By: #### 2 [id number] #### [facility] [address] [place] [address] Chloride [Moles/Vol] 109 mmol/L Normal 101-111 [facility] Comment on above: Performed By: #### 2 [id number] #### [facility] [address] [place] [address] CO2 [Moles/Vol] 24 mmol/L Normal 21-31 [facility] Comment on above: Performed By: #### 2 [id number] #### [facility] [address] [place] [address] Creatinine [Mass/Vol] 2.5 mg/dL High 0.5-1.3 [facility] Comment on above: Performed By: #### 2 [id number] #### [facility] [address] [place] [address] Glucose [Mass/Vol] 130 mg/dL Normal 55-199 [facility] Comment on above: Result Comment: If t his glucose result represents a fasting glucose, interpretation should refer to the following reference range: 55-99 mg/dL Performed By: #### 2 [id number] #### [facility] [address] [place] [address] Potassium [Moles/Vol] 4.8 mmol/L Normal 3.5-5.3 [facility] Comment on above: Performed By: #### 2 [id number] #### [facility] [address] [place] [address] Sodium [Moles/Vol] 140 mmol/L Normal 135-145 [facility] Comment on above: Performed By: #### 2 [id number] #### [facility] [address] [place] [address] Urea nitrogen [Mass/Vol] 38 mg/dL High 5-21 [facility] Comment on above: Performed By: #### 2 [id number] #### [facility] [address] [place] [address] Urea nitrogen/Creatinine [Mass ratio] 15 No Units Normal 10-20 [facility] Comment on above: Performed By: #### 2 [id number] #### [facility] [address] [place] [address] CBC w/ Auto Diffon 05-25-202 3 Erythrocyte distribution width (RBC) [Ratio] 13.5 % Normal 10.9-14.2 [facility] Comment on above: Performed By: #### 2 [id number] #### [facility] [address] [place] [address] Hematocrit (Bld) [Volume fraction] 34.9 % Low 37.7-49.0 [facility] Comment on above: Performed By: #### 2 [id number] #### [facility] [address] [place] [address] Hemoglobin (Bld) [Mass/Vol] 11.7 g/dL Low 13.5-17.5 [facility] Comment on above: Performed By: #### 2 [id number] #### [facility] [address] [place] [address] MCH (RBC) [Entitic mass] 32.1 pg Normal 27.0-34.0 [facility] Comment on above: Performed By: #### 2 [id number] #### [facility] [address] [place] [address] MCHC (RBC) [Mass/Vol] 33.6 g/dL Normal 31.4-36.0 [facility] Comment on above: Performed By: #### 2 [id number] #### [facility] [address] [place] [address] MCV (RBC) [Entitic vol] 95.4 fL Normal 80.0-100.0 [facility] Comment on above: Performed By: #### 2 [id number] #### [facility] [address] [place] [address] Platelet mean volume (Bld) [Entitic vol] 8.7 fL Normal 6.4-10.8 [facility] Comment on above: Performed By: #### 2 [id number] #### [facility] [address] [place] [address] Platelets (Bld) [#/Vol] 214.0 E9/L Normal 150.0-500. 0 [facility] Comment on above: Performed By: #### 2 [id number] #### [facility] [address] [place] [address] RBC (Bld) [#/Vol] 3.7 E12/L Low 4.3-5.9 [facility] Comment on above: Performed By: #### 2 [id number] #### [facility] [address] [place] [address] WBC corrected for nucl RBC Auto (Bld) [#/Vol] 10.4 E9/L Normal 4.0-11.0 [facility] Comment on above: Performed By: #### 2 [id number] #### [facility] [address] [place] [address] Consent for Treatmenton 10-26 Consent for Treatment [id number]#[id number]:127 Normal [facility] Consent for Treatment [id number]#1.00CD:127 Normal [facility] Ferritinon 11-18-2022 Ferritin [Mass/Vol] 192 ng/mL Normal 24-336 [facility] Comment on above: Result Comment: NORM ALS MEN <30 YRS 16-132 ng/mL MEN >30 YRS 8-338 ng/mL WOMEN (PREMEN) 6-104 ng/mL WOMEN (POSTMEN) 12-210 ng/mL Performed By: #### 2 100805, 9157908, 1559196, 69256461, 682279657, 3913500, 2957831, 6416670, 6948665 ####[facility] [address] [place] [address] Folateon 11-18-2022 Folate [Mass/Vol] ng/mL Normal >=6.7 [facility] Comment on above: Performed By: #### 2 380077, 3356843, 8830160, 33899873, 634331360, 2626665, 2335905, 2525775, 7779218 ####[facility] [address] [place] [address] Ironon 11-18-2022 Iron [Mass/Vol] 102 microgram/dL Normal 35-153 [facility] Comment on above: Performed By: #### 2 867472, 0875637, 5314681, 25415671, 895579972, 1209202, 4902331, 1570471, 6954803 ####[facility] [address] [place] [address] PT & PTTon 11-18-2022 aPTT Coag (PPP) [Time] 27.1 second(s) Normal 25.1-36.5 [facility] Comment on above: Result Comment: Para [...] the same coagulation reagent and instrumentation as [facility]. Currently there are no coagulation studies available worldwide for children to 14 days, and no normal ranges. Heparin therapeutic range (represented by Anti-Factor Xa activity of 0.2 - 0.4 U/mL) corresponds to PTT of 56.6 - 109.0 sec. Performed By: #### 2 [id number] #### [facility] [address] [place] [address] INR Coag (PPP) [Relative time] 1.1 {INR} Invalid Interpretation Code [facility] Comment on above: Result Comment: INR results are specifically intended to assess patients stabilized on long-term Anticoagulation therapy suggested INR?s ?Less Intensive Anticoagulation? 2.0 ? 3.0 Conventional Range 3.0 ? 4.5 Performed By: #### 2 [id number] #### [facility] [address] [place] [address] PT Coag (PPP) [Time] 11.9 second(s) Normal 9.4-12.5 [facility] Comment on above: Result Comment: 15 [...] the same coagulation reagent and instrumentation as [facility]. Currently there are no coagulation studies available worldwide for children to 14 days, and no normal ranges. Performed By: #### 2 [id number] #### [facility] [address] [place] [address] Phosphoruson 11-18-2022 Phosphate [Mass/Vol] 4.4 mg/dL Normal 1.9-4.6 [facility] Comment on above: Performed By: #### 2 957516, 6629063, 6374139, 01681623, 224955885, 8099960, 7042781, 0124503, 5422611 ####[facility] [address] [place] [address] Physician Orderon 11-18-2022 Physician Order [id number]#[id number]:127 Normal [facility] TIBC Calculatedon 11-18-2022 Iron binding capacity [Mass/Vol] 292 microgram/dL Normal 250-400 [facility] Comment on above: Performed By: #### 2 420826, 7715062, 5060403, 81873583, 349618421, 2730978, 4024776, 8060026, 5247742 ####[facility] [address] [place] [address] Transferrin [Mass/Vol] 208 mg/dL Normal 200-370 [facility] Comment on above: Performed By: #### 2 775924, 5099620, 0967835, 25891086, 761350045, 9482788, 5400096, 1846510, 5527660 ####[facility] [address] [place] [address] U Protein/Creat Ratioon 10-26 Albumin Elph (U) [Mass fraction] 25.2 mg/dL Invalid Interpretation Code [facility] Comment on above: Result Comment: The reference range and other method performance specifications have not been established for this test; results should be integrated into the clinical context for interpretation. Performed By: #### 1 [id number] #### [facility] [address] [place] [address] Creatinine (U) [Mass/Vol] 80.6 mg/dL Invalid Interpretation Code [facility] Comment on above: Result Comment: The reference range and other method performance specifications have not been established for this test; results should be integrated into the clinical context for interpretation. Performed By: #### 1 [id number] #### [facility] [address] [place] [address] U Prot/Creat Ratio 312.70 mg/gm Cr High .00-200.[address] [facility] Comment on above: Performed By: #### 1 [id number] #### [facility] [address] [place] [address] UA With Cult Reflexon 2022 Bilirubin Ql (U) Negative Normal Negative [facility] Comment on above: Performed By: #### 1 0888080, 5475575 #### [facility] [address] [place] [address] Clarity (U) CLEAR Normal Clear [facility] Comment on above: Performed By: #### 1 3102927, 9284130 #### [facility] [address] [place] [address] Color (U) YELLOW Normal Yellow [facility] Comment on above: Performed By: #### 1 9998524, 8227793 #### [facility] [address] [place] [address] Epithelial cells.squamous LM.HPF (Urine sed) [#/Area] 0-2 Normal 0-2 [facility] Comment on above: Performed By: #### 1 1572697, 0350383 #### [facility] [address] [place] [address] Glucose Test strip (U) [Mass/Vol] Negative Normal Negative [facility] Comment on above: Performed By: #### 1 5631037, 7482784 #### [facility] [address] [place] [address] Hemoglobin Ql (U) 3+ Abnormal Negative [facility] Comment on above: Performed By: #### 1 4589134, 8395128 #### [facility] [address] [place] [address] Ketones (U) [Mass/Vol] Negative Normal Negative [facility] Comment on above: Performed By: #### 1 7975311, 3952691 #### [facility] [address] [place] [address] [place].plasma/[place] .RBC (Bld) [Mass ratio] >30 Abnormal 0-3 [facility] Comment on above: Performed By: #### 1 9557383, 7724807 #### [facility] [address] [place] [address] Nitrite Ql (U) Negative Normal Negative [facility] Comment on above: Performed By: #### 1 4914130, 5891756 #### [facility] [address] [place] [address] pH (U) 6.0 [pH] Invalid Interpretation Code 5.0-9.0 [facility] Comment on above: Performed By: #### 1 4519046, 7254182 #### [facility] [address] [place] [address] Protein (U) [Mass/Vol] TRACE Abnormal Negative [facility] Comment on above: Performed By: #### 1 1158659, 0771706 #### [facility] [address] [place] [address] Specific gravity (U) [Rel density] 1.020 Invalid Interpretation Code 1.005-1.03 0 [facility] Comment on above: Performed By: #### 1 1303922, 9707962 #### [facility] [address] [place] [address] Type of Urine collection method Clean Catch Normal [facility] Comment on above: Performed By: #### 1 5808419, 0616642 #### [facility] [address] [place] [address] Urobilinogen Qn (U) 0.2 {Wil'U}/dL Normal 0.0-1.0 [facility] Comment on above: Performed By: #### 1 8857017, 7096498 #### [facility] [address] [place] [address] WBC Auto Ql (U) 1+ Abnormal Negative [facility] Comment on above: Performed By: #### 1 9620798, 7858313 #### [facility] [address] [place] [address] WBC LM.HPF (Urine sed) [#/Area] 0-5 Normal 0-5 [facility] Comment on above: Performed By: #### 1 4181316, 4805494 #### [facility] [address] [place] [address] Uric Acidon 11-18-2022 Urate [Mass/Vol] 7.0 mg/dL Normal 2.2-7.4 [facility] Comment on above: Performed By: #### 2 582767, 2224543, 3255519, 64042563, 285627505, 8724251, 3796742, 0783079, 8722174 ####[facility] [address] [place] [address] Vit B12on 11-18-2022 Cobalamin (Vitamin B12) [Mass/Vol] 495 pg/mL Normal 50-1500 [facility] Comment on above: Performed By: #### 2 111656, 5660724, 6441376, 21865390, 656055746, 4190404, 4271101, 8893467, 5961107 ####[facility] [address] [place] [address] Vitamin D 25 Hydroxyon 11-18 25-hydroxyvitamin D3 [Mass/Vol] 64.8 ng/mL Normal 30.0-100.0 [facility] Comment on above: Result Comment: Vit grewal D deficiency has been defined as a level of serum 25-OH vitamin D less than 20 ng/mL (1,2) by the [place] of Medicine and an Endocrine Society practice guideline. The Endocrine Society further defined vitamin D insufficiency as a level between 21 and 29 ng/mL (2). 1. IOM ([place] of Medicine). 2010. Dietary reference intakes for calcium and D. [place]: The National Academies Press. 2. Kortney MF, Candie [place], Ekaterina WEINBERG, et al. Evaluation, treatment, and prevention of vitamin D deficiency: an Endocrine Society clinical practice guideline. JCEM. 2010; 96 (7):1911-30. Performed By: #### 2 345132, 7249143, 6838247, 90462824, 393155170, 4578210, 1418836, 4631779, 5567130 ####[facility] [address] [place] [address] eGFRon 11-18-2022 GFR/1.73 sq M.predicted among non-blacks MDRD (S/P/Bld) [Vol rate/Area] 25 mL/min/1.73 m2 Low >=59 [facility] Comment on above: Order Comment: Order added by Discern Expert. Result Comment: Associate Product Integrity Engineer christa kidney disease could be indicated at eGFR's of less than 60 mL/min/1.73m2. Kidney failure is indicated at less than 15 mL/min/1.73m2. Performed By: #### 2 [id number] #### [facility] [address] [place] [address] Office Visiton 11-17-2022 Follow-up visit [id number] Ruben Smyth 1940 M Date Provider Department Center 11/17/2022 IRIS BLACKMAN [facility] Family History Problem Relation Age of Onset No Known Problems Mother No Known Problems Father Family Status - Relation Status Age at Mother Father Level of Service:43573 DE OFFICE/OUTPATIENT ESTABLISHED MOD MDM 30-39 MIN Normal [facility] Lab Reportson 11-12-2022 Lab Reports [id number]#1.00CD:127 Normal [facility] Lab Reports [id number]#1.00CD:127 Normal [facility] Lab Reports [id number]#1.00CD:127 Normal [facility] Lab Reports [id number]#1.00CD:127 Normal [facility] PSA, FREE AND TOTAL RATIOon 11-09-2022 % Free PSA 11.3 % Normal [facility] Comment on above: Result Comment: The [...] men. Performed By: #### P SAFREE #### [facility] [address] [place] [address] Dr. Alicia Patel Prostate specific Ag [Mass/Vol] 4.6 ng/mL Critically high 0.0-4.0 [facility] Comment on above: Result Comment: Dwight CARRILLOIA methodology. . According to the [place] [employer], Serum PSA should decrease and [...] disease. Performed By: #### P SAFREE #### [facility] [address] [place] [address] Dr. Alicia Patel PSA, Free 0.52 ng/mL Normal N/A [facility] Comment on above: Result Comment: Dwight JUAREZ methodology. Performed By: #### P SAFREE #### [facility] [address] [place] [address] Dr. Alicia Patel INSULINon 11-08-2022 Insulin 18.5 uIU/mL Normal 2.6-24.9 [facility] Comment on above: Performed By: #### T SH, LIPID, T4, FT3, CMP #### [facility] [address] [place] [address] Dr. Alicia Patel CBC AUTO DIFFon 11-06-2022 BASO # 0.0 103/ul Normal 0.0-0.1 [facility] Comment on above: Performed By: #### C BC #### [facility] [address] [place] [address] Dr. Alicia Patel Basophils/100 WBC (Bld) 0.4 % Normal 0.2-2.0 [facility] Comment on above: Performed By: #### C BC #### [facility] [address] [place] [address] Dr. Alicia Patel EO # 0.2 103/ul Normal 0.0-0.7 [facility] Comment on above: Performed By: #### C BC #### [facility] [address] [place] [address] Dr. Alicia Patel Eosinophils/100 WBC (Bld) 4.6 % Normal 0.9-7.0 [facility] Comment on above: Performed By: #### C BC #### [facility] [address] [place] [address] Dr. Alicia Patel Erythrocyte distribution width (RBC) [Ratio] 13.2 % Normal 11.0-15.0 [facility] Comment on above: Performed By: #### C BC #### [facility] [address] [place] [address] Dr. Alicia Patel Hematocrit (Bld) [Volume fraction] 34.6 % Critically low 42.0-54.0 [facility] Comment on above: Performed By: #### C BC #### [facility] [address] [place] [address] Dr. Alicia Patel Hemoglobin (Bld) [Mass/Vol] 11.4 g/dL Critically low 14.0-18.0 [facility] Comment on above: Performed By: #### C BC #### [facility] [address] [place] [address] Dr. Alicia Patel IG # 0.03 10e3/ul Normal 0.00-0.03 [facility] Comment on above: Performed By: #### C BC #### [facility] [address] [place] [address] Dr. Alicia Patel IG % 0.6 % Critically high 0.0-0.5 [facility] Comment on above: Performed By: #### C BC #### [facility] [address] [place] [address] Dr. Alicia Patel LYMPH # 0.9 103/ul Critically low 1.2-3.8 [facility] Comment on above: Performed By: #### C BC #### [facility] [address] [place] [address] Dr. Alicia Patel Lymphocytes/100 WBC (Bld) 16.3 % Critically low 20.5-60.0 [facility] Comment on above: Performed By: #### C BC #### [facility] [address] [place] [address] Dr. Alicia Patel MANUAL DIFF REQ NO Normal [facility] Comment on above: Performed By: #### C BC #### [facility] [address] [place] [address] Dr. Alicia Patel MCH (RBC) [Entitic mass] 32.9 pg Normal 25.9-34.0 [facility] Comment on above: Performed By: #### C BC #### [facility] [address] [place] [address] Dr. Alicia Patel MCHC (RBC) [Mass/Vol] 32.9 g/dL Normal 29.9-35.2 [facility] Comment on above: Performed By: #### C BC #### [facility] [address] [place] [address] Dr. Alicia Patel MCV (RBC) [Entitic vol] 99.7 fL Critically high 80.0-94.0 [facility] Comment on above: Performed By: #### C BC #### [facility] [address] [place] [address] Dr. Alicia Patel MONO # 0.6 103/ul Normal 0.3-0.8 [facility] Comment on above: Performed By: #### C BC #### [facility] [address] [place] [address] Dr. Alicia Patel Monocytes/100 WBC (Bld) 12.0 % Normal 1.7-12.0 [facility] Comment on above: Performed By: #### C BC #### [facility] [address] [place] [address] Dr. Alicia Patel NEUT # 3.5 103/ul Normal 1.4-6.5 [facility] Comment on above: Performed By: #### C BC #### [facility] [address] [place] [address] Dr. Alicia Patel Neutrophils/100 WBC (Bld) 66.1 % Normal 43.0-75.0 [facility] Comment on above: Performed By: #### C BC #### [facility] [address] [place] [address] Dr. Alicia Patel Platelet mean volume (Bld) [Entitic vol] 10.1 fL Normal 9.5-13.5 [facility] Comment on above: Performed By: #### C BC #### [facility] [address] [place] [address] Dr. Alicia Patel PLT 168 103/ul Normal 150-450 [facility] Comment on above: Performed By: #### C BC #### [facility] [address] [address] [address] Alicia Patel RBC 3.47 106/ul Critically low 4.70-6.10 [facility] Comment on above: Performed By: #### C BC #### [facility] [address] [address] [address] Alicia Patel WBC 5.2 103/ul Normal 4.0-11.0 [facility] Comment on above: Performed By: #### C BC #### [facility] [address] [address] [address] Alicia Patel FREE T3on 11-06-2022 FREE T3 2.78 pg/mlL Normal 2.18-3.98 [facility] Comment on above: Performed By: #### U RTPCR #### [facility] [address] [place] [address] Dr. Alicia Patel GLYCOHEMOGLOBIN A1Con 2022 ADA RECOMMENDATION SEE BELOW Normal [facility] Comment on above: Result Comment: ADA RECOMMENDED LIMIT 4.0 - 6.0 ADA THERAPEUTIC TARGET < 7.0 ACTION SUGGESTED > 7.0 Performed By: #### T SH, LIPID, T4, FT3, CMP #### [facility] [address] [address] [address] Alicia Patel Glucose [Mass/Vol] 120 mg/dL Normal [facility] Comment on above: Performed By: #### T SH, LIPID, T4, FT3, CMP #### [facility] [address] [place] [address] Dr. Alicia Patel HbA1c (Bld) [Mass fraction] 5.8 % Normal 4.5-6.2 [facility] Comment on above: Performed By: #### T SH, LIPID, T4, FT3, CMP #### [facility] [address] [place] [address] Dr. Alicia Patel LIPID PROFILEon 11-06-2022 CHOL-HDL RATIO NORM SEE BELOW Normal [facility] Comment on above: Result Comment: 3.3 - 4.4 LOW RISK 4.4 - 7.1 AVERAGE RISK 7.1 - 11.0 MODERATE RISK >11.0 HIGH RISK Performed By: #### U RTPCR #### [facility] [address] [address] [address] Alicia Patel Cholesterol [Mass/Vol] 107 mg/dL Normal <=200 Th [facility] Comment on above: Performed By: #### U RTPCR #### [facility] [address] [address] [address] Alicia Patel Cholesterol in HDL [Mass/Vol] 34 mg/dL Critically low 40-60 [facility] Comment on above: Performed By: #### U RTPCR #### [facility] [address] [place] [address] Dr. Alicia Patel Cholesterol in LDL [Mass/Vol] 58.8 mg/dL Normal [facility] Comment on above: Performed By: #### U RTPCR #### [facility] [address] [place] [address] Dr. Alicia Patel Cholesterol.total/Chol esterol in HDL [Mass ratio] 3.1 {ratio} Normal [facility] Comment on above: Performed By: #### U RTPCR #### [facility] [address] [place] [address] Dr. Alicia Patel HDL NORMAL > or = 60 mg/dl - LO W CARDIOVASCULAR RISK <40 mg/dl - HIGH CARDIOVASCULAR RISK Normal [facility] Comment on above: Performed By: #### U RTPCR #### [facility] [address] [address] [address] Alicia Patel LDL CALC NORMAL SEE BELOW Normal [facility] Comment on above: Result Comment: <100 mg/dl OPTIMAL 100 - 129 mg/dl NEAR OR ABOVE OPTIMAL 130 - 159 mg/dl BORDERLINE HIGH 160 - 189 mg/dl HIGH >190 mg/dl VERY HIGH Performed By: #### U RTPCR #### [facility] [address] [place] [address] Dr. Alicia Patel Triglyceride [Mass/Vol] 71 mg/dL Normal <=150 [facility] Comment on above: Performed By: #### U RTPCR #### [facility] [address] [place] [address] Dr. Alicia Patel VLDL CALC 14.2 mg/dL Normal [facility] Comment on above: Performed By: #### U RTPCR #### [facility] [address] [place] [address] Dr. Alicia Patel PROF 14(COMP METB)on 023 Albumin [Mass/Vol] 3.4 g/dL Normal 3.4-5.0 [facility] Comment on above: Performed By: #### T SH, LIPID, T4, FT3, CMP #### [facility] [address] [place] [address] Dr. Alicia Patel Albumin/Globulin [Mass ratio] 0.9 {ratio} Normal [facility] Comment on above: Performed By: #### T SH, LIPID, T4, FT3, CMP #### [facility] [address] [place] [address] Dr. Alicia Patel ALP [Catalytic activity/Vol] 75 U/L Normal 46-116 [facility] Comment on above: Performed By: #### T SH, LIPID, T4, FT3, CMP #### [facility] [address] [place] [address] Dr. Alicia Patel ALT [Catalytic activity/Vol] 31 U/L Normal 16-63 [facility] Comment on above: Performed By: #### T SH, LIPID, T4, FT3, CMP #### [facility] [address] [place] [address] Dr. Alicia Patel Anion gap [Moles/Vol] 14.4 mmol/L Normal [facility] Comment on above: Performed By: #### T SH, LIPID, T4, FT3, CMP #### [facility] [address] [place] [address] Dr. Alicia Patel AST [Catalytic activity/Vol] 23 U/L Normal 15-37 [facility] Comment on above: Performed By: #### T SH, LIPID, T4, FT3, CMP #### [facility] [address] [place] [address] Dr. Alicia Patel Bilirubin [Mass/Vol] 0.5 mg/dL Normal 0.2-1.0 [facility] Comment on above: Performed By: #### T SH, LIPID, T4, FT3, CMP #### [facility] [address] [place] [address] Dr. Alicia Patel Calcium [Mass/Vol] 8.8 mg/dL Normal 8.5-10.1 [facility] Comment on above: Performed By: #### T SH, LIPID, T4, FT3, CMP #### [facility] [address] [place] [address] Dr. Alicia Patel Chloride [Moles/Vol] 110 mmol/L Critically high 98-107 [facility] Comment on above: Performed By: #### T SH, LIPID, T4, FT3, CMP #### [facility] [address] [place] [address] Dr. Alicia Patel CO2 [Moles/Vol] 24.2 mmol/L Normal 21.0-32.0 [facility] Comment on above: Performed By: #### T SH, LIPID, T4, FT3, CMP #### [facility] [address] [place] [address] Dr. Alicia Patel Creatinine [Mass/Vol] 2.41 mg/dL Critically high 0.70-1.30 [facility] Comment on above: Performed By: #### T SH, LIPID, T4, FT3, CMP #### [facility] [address] [place] [address] Dr. Alicia Patel EGFR-AF MACEDONIAN 32 mL/min/1.73m2 Critically low >=60 [facility] Comment on above: Performed By: #### T SH, LIPID, T4, FT3, CMP #### [facility] [address] [place] [address] Dr. Alicia Patel EGFR-NON AF MACEDONIAN 26 mL/min/1.73m2 Critically low >=60 [facility] Comment on above: Performed By: #### T SH, LIPID, T4, FT3, CMP #### [facility] [address] [place] [address] Dr. Alicia Patel Globulin (S) [Mass/Vol] 3.6 g/dL Normal [facility] Comment on above: Performed By: #### T SH, LIPID, T4, FT3, CMP #### [facility] [address] [place] [address] Dr. Alicia Patel Glucose [Mass/Vol] 72 mg/dL Critically low 74-106 [facility] Comment on above: Performed By: #### T SH, LIPID, T4, FT3, CMP #### [facility] [address] [address] [address] Alicia Patel Potassium [Moles/Vol] 4.6 mmol/L Normal 3.5-5.1 [facility] Comment on above: Performed By: #### T SH, LIPID, T4, FT3, CMP #### [facility] [address] [place] [address] Dr. Alicia Patel Protein [Mass/Vol] 7.0 g/dL Normal 6.4-8.2 [facility] Comment on above: Performed By: #### T SH, LIPID, T4, FT3, CMP #### [facility] [address] [place] [address] Dr. Alicia Patel Sodium [Moles/Vol] 144 mmol/L Normal 136-145 [facility] Comment on above: Performed By: #### T SH, LIPID, T4, FT3, CMP #### [facility] [address] [place] [address] Dr. Alicia Patel Urea nitrogen [Mass/Vol] 32.0 mg/dL Critically high 7.0-18.0 [facility] Comment on above: Performed By: #### T SH, LIPID, T4, FT3, CMP #### [facility] [address] [place] [address] Dr. Alicia Patel Urea nitrogen/Creatinine [Mass ratio] 13.3 mg/mg Normal [facility] Comment on above: Performed By: #### T SH, LIPID, T4, FT3, CMP #### [facility] [address] [place] [address] Dr. Alicia Patel T4on 11-06-2022 T4 [Mass/Vol] 7.90 ug/dL Normal 4.50-12.10 [facility] Comment on above: Performed By: #### T SH, LIPID, T4, FT3, CMP #### [facility] [address] [address] [address] Alicia Patel TSHon 11-06-2022 TSH 0.263 uIU/mL Critically low 0.358-3.74 0 [facility] Comment on above: Performed By: #### T SH, LIPID, T4, FT3, CMP #### [facility] [address] [address] [address] Alicia Patel URIC ACID SERUMon 11-06-2022 Urate [Mass/Vol] 7.3 mg/dL Critically high 3.5-7.2 [facility] Comment on above: Performed By: #### T SH, LIPID, T4, FT3, CMP #### [facility] [address] [address] [address] Alicia Patel Pre-Certification Formon Pre-Certification Form [id number]:127 Normal [facility] ECHOCARDIO M/2D COMPLETEon 0 10-26-2022 ECHOCARDIO M/2D COMPLETE Patient: VICTORINO SMYTH Exam Date: 10/26/2022 : 1940 Gender:M Ordering : IRIS CORONEL Admission #: [id number] Family : DR TRAY ALFARO . Order #: [id number] CLICK HERE TO VIEW EXAM ECHOCARDIOGRAM REPORT [...] Glasgow M.D. on 10/28/2022 at 13:02 Normal [facility] RAD - MISCon 10-25-2022 RAD - MISC [id number]:127 Normal [facility] XR KUB 1 VIEWon 10-22-2022 XR [...] by: TYLER MONSIVAIS Date: 2022-10-22 09:12 Normal [facility] RAD - Ultrasound Reporton RAD - Ultrasound Report [id number]:127 Normal [facility] US KIDNEYSon 10-18-2022 US KIDNEYS EXAMINATION: [...] by: TESS FORD Date: 2022-10-18 07:04 Normal [facility] IntraOperative Documentson 0 10-15-2022 IntraOperative Documents [id number]:127 Normal [facility] 37on 10-14-2022 37 Increase amlodipine back to 10 mg daily Increase Isosorbide to 120 mg daily ( 2 tabs) daily for chest pain Goal b/p is 130/80 or less Call office for continued chest pain/burning, shortness of breath, or call 911 for any worsening symptoms. Normal [facility] BNPon 10-14-2022 Natriuretic peptide B (Bld) [Mass/Vol] 300.0 pg/mL Normal <=1,800.0 [facility] Comment on above: Performed By: #### T SH, LIPID, T4, FT3, CMP #### [facility] [address] [place] [address] Dr. Alicia Patel CBC AUTO DIFFon 10-14-2022 BASO # 0.0 103/ul Normal 0.0-0.1 [facility] Comment on above: Performed By: #### T SH, LIPID, T4, FT3, CMP #### [facility] [address] [address] [address] Alicia Patel Basophils/100 WBC (Bld) 0.6 % Normal 0.2-2.0 [facility] Comment on above: Performed By: #### T SH, LIPID, T4, FT3, CMP #### [facility] [address] [address] [address] Alicia Patel EO # 0.2 103/ul Normal 0.0-0.7 [facility] Comment on above: Performed By: #### T SH, LIPID, T4, FT3, CMP #### [facility] [address] [place] [address] Dr. Alicia Patel Eosinophils/100 WBC (Bld) 4.6 % Normal 0.9-7.0 [facility] Comment on above: Performed By: #### T SH, LIPID, T4, FT3, CMP #### [facility] [address] [place] [address] Dr. Alicia Patel Erythrocyte distribution width (RBC) [Ratio] 14.2 % Normal 11.0-15.0 [facility] Comment on above: Performed By: #### T SH, LIPID, T4, FT3, CMP #### [facility] [address] [place] [address] Dr. Alicia Patel Hematocrit (Bld) [Volume fraction] 36.1 % Critically low 42.0-54.0 [facility] Comment on above: Performed By: #### T SH, LIPID, T4, FT3, CMP #### [facility] [address] [place] [address] Dr. Alicia Patel Hemoglobin (Bld) [Mass/Vol] 11.8 g/dL Critically low 14.0-18.0 [facility] Comment on above: Performed By: #### T SH, LIPID, T4, FT3, CMP #### [facility] [address] [place] [address] Dr. Alicia Patel IG # 0.03 10e3/ul Normal 0.00-0.03 [facility] Comment on above: Performed By: #### T SH, LIPID, T4, FT3, CMP #### [facility] [address] [place] [address] Dr. Alicia Patel IG % 0.6 % Critically high 0.0-0.5 [facility] Comment on above: Performed By: #### T SH, LIPID, T4, FT3, CMP #### [facility] [address] [place] [address] Dr. Alicia Patel LYMPH # 1.1 103/ul Critically low 1.2-3.8 [facility] Comment on above: Performed By: #### T SH, LIPID, T4, FT3, CMP #### [facility] [address] [place] [address] Dr. Alicia Patel Lymphocytes/100 WBC (Bld) 22.6 % Normal 20.5-60.0 [facility] Comment on above: Performed By: #### T SH, LIPID, T4, FT3, CMP #### [facility] [address] [place] [address] Dr. Alicia Patel MANUAL DIFF REQ NO Normal [facility] Comment on above: Performed By: #### T SH, LIPID, T4, FT3, CMP #### [facility] [address] [place] [address] Dr. Alicia Patel MCH (RBC) [Entitic mass] 33.2 pg Normal 25.9-34.0 [facility] Comment on above: Performed By: #### T SH, LIPID, T4, FT3, CMP #### [facility] [address] [place] [address] Dr. Alicia Patel MCHC (RBC) [Mass/Vol] 32.7 g/dL Normal 29.9-35.2 [facility] Comment on above: Performed By: #### T SH, LIPID, T4, FT3, CMP #### [facility] [address] [place] [address] Dr. Alicia Patel MCV (RBC) [Entitic vol] 101.7 fL Critically high 80.0-94.0 [facility] Comment on above: Performed By: #### T SH, LIPID, T4, FT3, CMP #### [facility] [address] [place] [address] Dr. Alicia Patel MONO # 0.7 103/ul Normal 0.3-0.8 [facility] Comment on above: Performed By: #### T SH, LIPID, T4, FT3, CMP #### [facility] [address] [place] [address] Dr. Alicia Patel Monocytes/100 WBC (Bld) 13.8 % Critically high 1.7-12.0 [facility] Comment on above: Performed By: #### T SH, LIPID, T4, FT3, CMP #### [facility] [address] [place] [address] Dr. Alicia Patel NEUT # 2.9 103/ul Normal 1.4-6.5 [facility] Comment on above: Performed By: #### T SH, LIPID, T4, FT3, CMP #### [facility] [address] [place] [address] Dr. Alicia Patel Neutrophils/100 WBC (Bld) 57.8 % Normal 43.0-75.0 [facility] Comment on above: Performed By: #### T SH, LIPID, T4, FT3, CMP #### [facility] [address] [place] [address] Dr. Alicia Patel Platelet mean volume (Bld) [Entitic vol] 10.1 fL Normal 9.5-13.5 [facility] Comment on above: Performed By: #### T SH, LIPID, T4, FT3, CMP #### [facility] [address] [place] [address] Dr. Alicia Patel PLT 160 103/ul Normal 150-450 [facility] Comment on above: Performed By: #### T SH, LIPID, T4, FT3, CMP #### [facility] [address] [place] [address] Dr. Alicia Patel RBC 3.55 106/ul Critically low 4.70-6.10 [facility] Comment on above: Performed By: #### T SH, LIPID, T4, FT3, CMP #### [facility] [address] [place] [address] Dr. Alicia Patel WBC 5.0 103/ul Normal 4.0-11.0 [facility] Comment on above: Performed By: #### T SH, LIPID, T4, FT3, CMP #### [facility] [address] [place] [address] Dr. Alicia Patel Coding Summary.on 10-14-2022 Coding Summary. CD:[id number] Ww+PGh lYWQ+XI2FUNUvS15tkTLxlB2qI 0NMTElOSywgQVBQTElOSyIgbmF mRY2pjQVuXPQy IC8+LC3rGLLyRbuejVLcu9I9hV M4O46ptq8oWTbudZS5MDHuIcNz yllon3dfxWp1VCocJbluTtKy ZFErnQ03KJU9jA28Mk10bBChjB Nbz2zgtXd5AuWkSEAoSEC1lUkl TOdij9McTAEdS54fiPVzx0L0 IVSuxQoqiXDiNxRigAQ4tB9aVF dnmqvnk1nwhbgmYeq7lu99cQEb q1A6eUF0H9OgkzC0DPAaeDZr NwxkwUYXcD5vtvjto1ytunanFu UgKXMlMBf2XLq4THQcxSkrSaQd CU97TWX4LFLftiOgF0SyYARn vNruScY1h8C7Qv3AG6FPPbveD2 VNTUFSWTwvdGQ+DT29cr63L3Uo WwnoOtm9BABkOVL8fRA5fZ1f WGJyVYken6I1dNF6Q4OpswQdzg 9vf1cqVIKcQDdhP00pwRYun8V2 AMJpdTR4OPEljYfaQtDkvV61 Oyc+GVUzsOual2DmClcka8wzc6 hcjOq6OzxyTLXqxgLvpJiwTKY8 q5SbTa8gARDlkKO8xYQ1jU4h OrVdMlD0GZcwD300WmQdsMTuSq mtT28lT1EkmVF+UQIhVwv3UWYi lGhlRF0lL1HnUEHjulyxbEYq aLpqNB4dXNFclogcIODfkA1vFT FeB6n9GpGmOfT3MXpbE5FdQQJy lptrTy94oO4lTtDfNoR5SCah C8PgvpP6DYWidEBxBYavEGY3Z5 4dr5N2PBUjZPWoRQM1gQY1vG3n bGlnbjogbGVmdDsgdmVydGlj RJcpGUshP428MHPjyBrqBpGkWJ luZyBEYXRlOiAgMDQvMjAvMjAy MzwvdGQ+WDMxOZW9oJcmVCIh pMGaBPweHe1fsFxodUhxSF6xCD JxcullQDEhyN3jWCPjcCUtgMkm YE7dHVSwpnpmp694NuLjDWH3 SZLxwCSwQ2BfkG3qKuTxIMDbCJ YiV2FnlCTrPDxlN063IXaoBxH0 KJIskeYaN7UnUTZbuUjdFqT9 n5F8Ov7Fh6GcyjrhB9KexCIlZe BnVtxzPHp9S9DbVnwfaHQ+PC90 WZBpDZ50VVa4JCP1nDemMSkz NYFxE8SlsV8hKrCcEILjORNmIl c+PHRhYmxlIHdpZHRoPScxMDAl JrXmiMggEU0sJg2uVOFfQYMw bKwogPXnPlMev1qrPSXpOFkiAG 6mmNxgJ3DtcOB8OYEbh3c7Jz60 G87kZ9ZzmVZ+UFBncXU7qDV4 tF9mGeCgYsQ7EHitU018HnQhfD FnEoukn3sno6euoHc6WxN2VISl wbTsqTiiZBN1e6MwHt75N47s IHdpZHRoPSIxNSUiIHZhbGlnbj 2kfC2sQu3+RNMwpZU1qUT3tH4q TgCbGeK4HMruJ805ObWtdABv Vcmdt7tfn8akaMx8DoIcYFFqxd KsgRnwTSA6q1KtIn94O0DibVye x2NqLaj3kq63bQSsq1W8fPN1 N3FyCALpkkhdkHHelNtyVG2eJN CxjxyyNEEhqN8aMFWcA9g7OpXt ZiN0LZntM3TcapO2ORXhlKOh PHJcwAUNzK8somyia1acrmgmUi UuFDLoOCp4QIx5CIOymWvoYsBe IEB5HrT1ZPD2rBFjpU2cdZiz ntzxfQ2hTdh+HYK8wRVltZAEAD 1lOjwvdGQ+LDYoIRQ5fZrqKZoi BYFfqF5nLZLeU4u5CeZgVrW2 RUqwS8SurqB8BINncTOiKBYzdC MDhA7spwama5pvigdlXtUnNWHx CXs2PZd8NFDfuFjnXbFgUFD3 TxX0OAZ8fEMntO5vyBmrmfyxuS 9wOyc+XvomrCmlTBE7OVt3P8Ua Ewy6KTBopFukWW3kvJMwJTsl Rk8cnFexhVjrQY5qGJQidrfih7 99RqNrk0jaEHUwpGBqLMmvFHZ7 O71ua2B1DMQxYXBqCVV3oJX1 gA9siKeuixclqUYhtDpsbsAjjU qmDKovIEerA165MFYccWxeTiZx UCb7H7HhSew4ZMRviDqoAC0x wEFxOKtfBs8kyDathUtuQT1mFW Qggvxuk356NqCmr1foIEEzyNUm NUpyRWL3H15wa4R9XKNkYCHp OTM7uXR9qQ9hkHoglxkqkNBnzP bpneUamYarPSusWAfeJ749ZDYv sLmzTjSqfKy3F4YpVwx4JSIu tXieCT9rvPXdADsfCi9yzMifzW tsQB0eGUWypxwnq216SmWia0hm MYVusJJmALjoILK0G63bc5H0 LJJqOYRzWGO8aUO4nN7bfIdifs ogbGVmdDsgdmVydGljYWwtYWxp X826KJUtgSlaOlDhcObssuIh UUfsGIa7Q4AjZxcelWR+PC90YW LsHC66vKHcaQWca8xmxMd2OpHv OGCyIEL7pMluMHlco6FhLMTx Z45pxZGnt1K9VXSwzQjmjLIpKn GeqBF9lV6sSPfoauzlz9sdqtpd Fsgxd9ftrl05xC36L31qZWpw GDWjYJYpDPCzBNUebAdkxs2cgA 9wIi8+PWHuvUG0aKX3vN0kERUx DiQ9NEjfJ505WuIpePEvNyqa d5ybm6yfiFp1BdB2JFBwjgCpxZ ryUSE3i1IoOr06Z38aQRdrOZUb HVOxNOFwHMCndIfxzo3csT3m Ii8+WWVdoRM5xUM7gV8wSbNwCn W6SBxvJ806AfBabWAdZuluW54i T1FpiHH+TGSeFfx3NRHvyEyv IG6djXAkRPsaDb0qLIQ1VsKhUj JpUDhpG3JwWWGehsrmjgvqzZR6 FXZoTWIovJ05Du8oqXipSFCy iQTKaD0qyexij3qelnkhMkLaPE NgAVh2TKc7VPQtwRisHaUbGQV4 GeE1PYO5yLCspY8kqChxetrr hJ1iN6MlBASqfydoEp23lD6bBa OgNyJ9UFwjHzb+OBGIUM1WIhbh KkNHNdJNRCZGRG23QM49jFOp s6V7fKB4L5CkXPNzgevupdbpaT G9ITElCUWqmZ93yNUvHOvvRi4o r0T9g790JVZzTQQwiC82Ym5m oTxxZIDdjBIJzB6vfpvcj6amlw xdTuOaOSWlIXp0MCb1QKCqiLxz NeEqFCU0NnW6ITW6zLYemU7n jPsxtjgidK6xIej+MDIvMDQvMT v0QgbnpXS+UVHdBRJ8yYbiFNzv CDHkgQ6iKVKiN7a7YsZvLfR4 PWjvA8NeUXClmmecSo10vM4jRs BsJlH5AMusW5EgnxH6ZHEkuUBb XXejLJV3W64rb4P1XWHtFPXn JEP5fCV1gD9jsWyeuyzlqSZwyJ fvjxHdwCeoQImjYAejE349HEOx nGwsWpmgUGydSOOoHL53XH46 iFIey6A9gFC9Y5CaHHGegnoivu hpnJC1AUGlOOBnqH92lEVlEUcw Ia9hy2Y0d879EJWwTAZubW95 Cm8goYwuEQWzpOUTnS7qapcdn0 limbjzEwMgTZSwBUt0MAs7VDCe dQduDnOlSAX0HjZ0NRG9yXIn gR8gkEwojkoovP9aImz+TWFsZT wvdGQ+RSYpPET2vCjzMNoeRAOf vG7mECYrF8v6ZcRqGaT5SQpz Y5YfWMEtifkkFy96kW2xOoVrRc A0UEvcT0LsziH8WWDuwUCkBAag HEK7B52io6W2LWQfTCGcXKR2 nTV4kN5tnNsquburtSKdhJgvhe QrfMqdYFdfNQchV840TWRipVmh LfDvLnJnVJJoqtqxT2FcXNFK XIntG7LyO1BheHtvuEP+PC90cj 29L8PyNgzrNpn5XRXfWSB2bQV4 iT7cCIYfUQkox7Y9pKP1C8Kt urZyjd0bg9tuBRJqSPzaG10sqE Ecd7P1DOAdmTE0JRCqbVxbUsWk dL24Skp+TVOfcEybi6OiEmgy t6lpf9baaXf1TdSqQTSyjqPspJ dbKPR3p9DhGq22Z87pYFtmZGQm PQZpTYBwIIBfiMohiz0dsW3d Ii8+DCCxkLH9bEW1sN4aWtFqAc X1ICioA822YcBizNCmVpjzh3oy z3lcqNy3HjJvBKDcvcXoyBwz ZHN1z1GaQk92N3SsgWgzw8DoZt x5ge50hIZfv1W6aUB4X0ClQJUj cnpztSZqaDtmIW5yFDQnvxao WWMuuI6uISVmX2o4WtKcYvB8YC uiF5MayqZ0QJSwgXFnOAAviGQT fK3szshms3zqkxfpToSrQUMk OFa1MXw5JGYqcPqgJrAlBVA3Ox J5KSF9sUIpeH3rpGltigwvkU5x Oyc+EMj7j5svhPEqAS2enQF1 XH16BG65kFOby4C0vCZ8F3RiVF HcppgqzxavaZZ1DQWrOVFcgU62 Jm4pbRmzAy6pHQRyRZG9MWOu lCUgJ1UlnV7hGmYpAXCnJFOoO9 CndAZhZVpbQ497QMznOdE8KZSh vqQaP9JfRXIbaVopAdJ7t3W4 Ps1XFR96OV99AW54xQWbx5Z5fM Y9V7WfPMJmrdavupbjmOX5AGIk AABsyP26Gn7csAlaXz3jKNHv JXA2AKDmgZCaX1UgzE9sMfVhZN HsMSAeB8LevPJbQRhtO333GThb CjP9RSLlwpStB0WtACBgmUpn YpF7v3C0Lt8LRf65OV00MM45cB Wwk4Z8eCG6M0JhNLDqjpkzubqb oOW1ONZfWWIelJ12Mf2fxOnm Sy5nWSUoUCW8DJCuuLUaV3TtlT 5rVmWxHDDsKUXbS0HfiERrAAmy F470ZHcoGjY0LDXrafKjD9Vw NIGrvNxyPeU0p3W9Ku6GCJevpp h7T1IbVvhcaLG+DR19RXHwWA29 jULiqDRws7aplIy0SqWnKUWt LSQ8cBvl (more content not included)... Normal [facility] Office Visiton 10-14-2022 Follow-up visit [id number] Ruben Smyth 1940 M Date Provider Department Center 10/14/2022 IRIS BLACKMAN [facility] Family History Problem Relation Age of Onset No Known Problems Mother No Known Problems Father Family Status - Relation Status Age at Mother Father Level of Service:28165 DE OFFICE/OUTPATIENT ESTABLISHED MOD MDM 30-39 MIN Reason for Visit and Comments: Chest Pain [979427] Coronary Artery Disease [187] Hypertension [379890] Normal [facility] PROF CHEM 8 (BAS METB)on Anion gap [Moles/Vol] 13.9 mmol/L Normal [facility] Comment on above: Performed By: #### T SH, LIPID, T4, FT3, CMP #### [facility] [address] [place] [address] Dr. Alicia Patel Calcium [Mass/Vol] 8.3 mg/dL Critically low 8.5-10.1 [facility] Comment on above: Performed By: #### T SH, LIPID, T4, FT3, CMP #### [facility] [address] [address] [address] Alicia Patel Chloride [Moles/Vol] 108 mmol/L Critically high 98-107 [facility] Comment on above: Performed By: #### T SH, LIPID, T4, FT3, CMP #### [facility] [address] [address] [address] Alicia Patel CO2 [Moles/Vol] 23.5 mmol/L Normal 21.0-32.0 [facility] Comment on above: Performed By: #### T SH, LIPID, T4, FT3, CMP #### [facility] [address] [place] [address] Dr. Alicia Patel Creatinine [Mass/Vol] 2.41 mg/dL Critically high 0.70-1.30 [facility] Comment on above: Performed By: #### T SH, LIPID, T4, FT3, CMP #### [facility] [address] [address] [address] Alicia Patel EGFR-AF MACEDONIAN 32 mL/min/1.73m2 Critically low >=60 [facility] Comment on above: Performed By: #### T SH, LIPID, T4, FT3, CMP #### [facility] [address] [place] [address] Dr. Alicia Patel EGFR-NON AF MACEDONIAN 26 mL/min/1.73m2 Critically low >=60 [facility] Comment on above: Performed By: #### T SH, LIPID, T4, FT3, CMP #### [facility] [address] [place] [address] Dr. Alicia Patel Glucose [Mass/Vol] 74 mg/dL Normal 74-106 [facility] Comment on above: Performed By: #### T SH, LIPID, T4, FT3, CMP #### [facility] [address] [place] [address] Dr. Alicia Patel Potassium [Moles/Vol] 4.4 mmol/L Normal 3.5-5.1 [facility] Comment on above: Performed By: #### T SH, LIPID, T4, FT3, CMP #### [facility] [address] [place] [address] Dr. Alicia Patel Sodium [Moles/Vol] 141 mmol/L Normal 136-145 [facility] Comment on above: Performed By: #### T SH, LIPID, T4, FT3, CMP #### [facility] [address] [place] [address] Dr. Alicia Patel Urea nitrogen [Mass/Vol] 36.0 mg/dL Critically high 7.0-18.0 [facility] Comment on above: Performed By: #### T SH, LIPID, T4, FT3, CMP #### [facility] [address] [place] [address] Dr. Alicia Patel Urea nitrogen/Creatinine [Mass ratio] 14.9 mg/mg Normal [facility] Comment on above: Performed By: #### T SH, LIPID, T4, FT3, CMP #### [facility] [address] [place], [place] [address] Dr. Alicia Patel TROPONIN, HIGH SENSITIVITYon 10-14-2022 HSTROP 9.6 pg/mL Normal 4.0-76.1 [facility] Comment on above: Result Comment: CUT- OFF POINTS HAVE BEEN ESTABLISHED BASED ON THE FOURTH UNIVERSAL DEFINITIONS OF MYOCARDIAL INFARCTION. THE UPPER REFERENCE LIMIT (URL) OF TROPONIN, DEFINED THE 99TH PERCENTILE OF cTnI DISTRIBUTION IN A REFERENCE POPULATION, HAS BEEN CONFIRMED THE DECISION THRESHOLD FOR WA DIAGNOSIS. Performed By: #### T SH, LIPID, T4, FT3, CMP #### [facility] [address] [place], [place] [address] Dr. Alicia Patel Main OR Intraoperative Recor don 10-13-2022 Main OR Intraoperative Record IntraOp Document Type FT Summary Primary Physician: Ni OLIVARES MD Finalized Date/Time: 10/13/22 15:17:44 Pt. Name: VICTORINO SMYTH/Sex: 1940 Male Med Rec #: [id number] Physician: Ni OLIVARES MD Financial #: [id number] Pt. Type: A Room/Bed: [place] [address] Admit/Disch: 10/07/22 09:01:16 - 10/07/22 17:40:00 Institution: [...] Role Performed Anesthesiologist of Surgeon - Primary Tobacco Checkout Clerk - Primary Record Time In 10/07/22 15:01:00 [...] and tissue Entry 1 Skin Integrity Intact, [place], Warm, and Skin Abnormality No Dry Outcomes [...] at Side (more content not included)... Normal [facility] Consent for Anesthesiaon Consent for Anesthesia [id number]#1.00CD:127 Normal [facility] Discharge Instructionson Discharge Instructions [id number]#1.00CD:127 Normal [facility] IntraOperative Documentson 0 10-08-2022 IntraOperative Documents [id number]#1.00CD:127 Normal [facility] IntraOperative Documents [id number]#1.00CD:127 Normal [facility] IntraOperative Documents [id number]#1.00CD:127 Normal [facility] Preoperative Documentson Preoperative Documents [id number]#1.00CD:127 Normal [facility] Preoperative Documents [id number]#1.00CD:127 Normal [facility] Preoperative Documents [id number]#1.00CD:127 Normal [facility] XR Abdomen 1 Viewon 10-09-19 23 [...] mGy = 0 DAP = 0 Normal [facility] CHEMISTRYOrdered By: Lab ROP User on 10-07-2022 Glucose [Mass/Vol] 101 mg/dL High 55 - 99 mg/dL [facility] POC Subsection Comment on above: Result Comment: Jackelin quach RN/ POC Device SN [id number] Invalid Interpretation Code FT POC Subsection POC User ID [id number] Invalid Interpretation Code [facility] POC Subsection POC Username BEE NORRIS Invalid Interpretation Code [facility] POC Subsection Capillary Glucose POCon 09-25 Glucose [Mass/Vol] 101 mg/dL High 55-99 [facility] Comment on above: Result Comment: Jackelin quach RN/ Performed By: #### 2 [id number] #### [facility] [address] [place] [address] Consent for Procedure/Surger yon 10-07-2022 Consent for Procedure/Surgery [id number]#1.00CD:127 Normal [facility] Consent for Treatmenton 09-25 Consent for Treatment [id number]#1.00CD:127 Normal [facility] H&P Updateon 10-07-2022 H&P Update [id number]#1.00CD:127 Normal [facility] Inpatient Patient Summaryon 10-07-2022 Inpatient Patient Summary [address] [address] [facility] Clinical Discharge Instructions PERSON INFORMATION Name: VICTORINO SMYTH PHYSICIANS Admitting Physician: Ni OLIVARES MD Attending Physician: Ni OLIVARES MD PCP: Erum OLIVEROS, Tray Discharge Diagnosis: Comment: PATIENT EDUCATION INFORMATION Instructions: Post Op Patient Instructions - FT (CUSTOM); Lithotripsy, Care After Medication Leaflets: Follow up: With: Address: When: Ni OLIVARES [address] [place] [address], [address], [address] [address] Business (1) Comments: We were [...] Location Start [place] [facility] Office Visit [facility] [place] 10/29/2022 8:45 AM 10/29/2022 9:00 AM Confirmed MEDICATION LIST New Medications [id number], [address], [place] [id number], [phone] acetaminophen-hydrocodone (acetaminophen-hydrocodone 325 mg-5 mg oral tablet) [...] Capsules By Mouth every day. Comment: Normal [facility] Main OR PACU I Recordon 09-25 Main OR PACU I Record PACU Phase I Docum ent Type FT Summary Primary Physician: Ni OLIVARES MD Finalized Date/Time: 10/07/22 16:21:28 Pt. Name: HAJAVICTORINO/Sex: 1940 Male Med Rec #: [id number] Physician: Ni OLIVARES MD Financial #: [id number] Pt. Type: A Room/Bed: [facility]/ Admit/Disch: 10/07/22 09:01:16 - Institution: [...] By: ALESSIA YOON RN 10/07/22 16:21 Normal [facility] Main OR PACU II Recordon Main OR PACU II Record PACU Phase II Doc ument Type FT Summary Primary Physician: Ni OLIVARES MD Finalized Date/Time: 10/07/22 18:36:17 Pt. Name: VICTORINO SMYTH/Sex: 1940 Male Med Rec #: [id number] Physician: Ni OLIVARES MD Financial #: [id number] Pt. Type: A Room/Bed: AS06/ Admit/Disch: 10/07/22 [...] By: Eliz Mcbride RN 10/07/22 18:36 Normal [facility] Main OR Preoperative Recordo n 10-07-2022 Main OR Preoperative Record PreOp Document Type FT Summary Primary Physician: Ni OLIVARES MD Finalized Date/Time: 10/07/22 15:12:57 Pt. Name: VICTORINO SMYTH/Sex: 1940 Male Med Rec #: [id number] Physician: Ni OLIVARES MD Financial #: [id number] Pt. Type: A Room/Bed: Admit/Disch: 10/07/22 09:01:16 [...] 10/07/22 15:12 Aravind Gatica 10/07/22 15:12 Normal [facility] Monitor Recordon 10-07-2022 Monitor Record [id number]#1.00CD:127 Normal [facility] Monitor Record [id number]#1.00CD:127 Normal [facility] Operative Reporton 3 Operative Report Patient: [...] it well. He is transferred to the [facility] and then back to PACU in satisfactory [...] patient's that he needs to contact his guest service host and/or Dr. Jose Alfaro to arrange for possible further follow-up regarding this. She was in agreement with the plan.. Estimated Blood Loss: 0 ml. Complications: None. Anesthesia type: General. Normal [facility] Comment on above: Result Comment: Elec tronically Signed By: Ni OLIVARES MD\.br\Date and Time Signed: 10/07/22 15:51 EDT Outpatient Surgery Discharge Instructionon 10-07-2022 Outpatient Surgery Discharge Instruction [address] [address] Patient Discharge Instructions PERSON INFORMATION [...] Follow up: With: Address: When: Ni OLIVARES [address] [place], [place] [address], [address], [place] [id number] Business (1) Comments: We were able to [...] any other anesthesia procedures. Type Location Start [facility] Office Visit [facility] [place] 10/29/2022 8:45 AM 10/29/2022 9:00 AM Confirmed [...] to serve you. Thank you for choosing [facility] HERE ARE THE MEDICATION CHANGES THAT OCCURRED DURING YOUR HOSPITAL STAY New Medications [id number], [address], [place] [phone], [phone] acetaminophen-hydrocodone (acetaminophen-hydrocodone 325 mg-5 mg oral tablet) [...] Instructions: Lithotripsy, Care (more content not included)... [facility] Patient Education - Texton 0 10-07-2022 Patient [...] these instructions at home: Medicines ? Take clkh-afn-pzewedo and prescription medicines only as told by [...] help ri (more content not included)... Normal [facility] Progress Note-Physicianon Progress Note-Physician Patient: VICTORINO SMYTH Age: 82 years Sex: Male : 1940 Associated Diagnoses: None Author: Toya OLIVEROS, Timothy Motta Postoperative Information Postoperative disposition: Postoperative disposition: To PACU. Optimetrix number: Optimetrix number [id number]. Anesthetic utilized: General. Physical Examination Vital Signs [...] when meets criteria ( To home ). [facility] Comment on above: Result Comment: Elec [...] Problems Acute kidney failure / SNOMED CT 47537778 / Confirmed Anticoagulated / SNOMED CT 588371810 / Confirmed BPH associated with nocturia / SNOMED CT 0072438518 / Confirmed BPH with urinary obstruction / SNOMED CT 7528596774 / Confirmed Chronic obstructive pulmonary disease (COPD) / SNOMED CT 45176224 / Confirmed Coronary artery disease / SNOMED CT 14925129 / Confirmed DM (diabetes mellitus), type 2 / SNOMED CT 340384202 / Confirmed Elevated PSA / SNOMED CT 9740151756 / Confirmed Erectile dysfunction / SNOMED CT 4878752113 / Confirmed Flank pain / SNOMED CT 480679257 / Confirmed H/O: hypothyroidism / SNOMED CT 060240338 / Confirmed Hydronephrosis / SNOMED CT 38385904 / Confirmed Hydronephrosis with ureteral calculus / SNOMED CT 4803514188 / Confirmed Hyperlipidemia / SNOMED CT 88418030 / Confirmed Hyperplastic colon polyp / SNOMED CT 2278912664 / Confirmed Hypertension / SNOMED CT 1607822534 / Confirmed Kidney stone / SNOMED CT 617694913 / Confirmed Myocardial infarct / SNOMED CT 10228239 / Confirmed Occult blood in stools / SNOMED CT 52175287 / Confirmed Postprandial diarrhea / SNOMED CT 73266478 / Confirmed Prostate cancer / SNOMED CT 5039551513 / Confirmed Rheumatoid arthritis / SNOMED CT 457398511 / Confirmed Ureteral stone / SNOMED CT 66982041 / Confirmed Urinary retention / SNOMED CT 379478966 / Confirmed, Active Problems (24) Acute kidney [...] Mean Kayce (more content not included)... Normal [facility] Comment on above: Result Comment: Elec tronically Signed By: Toya OLIVEROS, Timothy Villanueva.br\Date and Time Signed: 10/07/22 16:52 EDT Coding Summary.on 09-22-2022 Coding Summary. CD:[id number] Ww+PGh lYWQ+YW7KVLHdM84gmCYdcT3iF 0NMTElOSywgQVBQTElOSyIgbmF xZD5zyDAwTDId IC8+GG8sLPPhPragrCIow1I3kL C2Q87lva2wPJvtkYX2THTcFmNj plzla4hrpBr9IFykPeeaPnAx LPJjyU15ESP2sM54Oc55sOWiqK Gij4falUe1MuBhTVVkUKS8vSwu ZPimj5DeYBWhS28yfWLgi0F5 CKKifYukzCDrUbTeqGM3pA0cZS unkhlfh3psmalzUbt6uw46uVMn l2D2vIA7K7CmqsE6KSSryZTs DbsnrNRQqA3gczyvl7iodmshEq XnOKSuLIa1XXy6NKFbuQtvBkAw UN69HFK5KQKisuYkJ0YlZSVv jDfrJiR8u9L4Nn4IO7MEVyoqK4 VNTUFSWTwvdGQ+CX57he55K2Ab XefgTcz0LOWnPZM1zFQ9fZ1q ABQiPQnfa8Y8jSJ0B2ZazkQnik 8hp9isMEBeIEphJ42zqCVfw9M1 SIBapZN3SLSeeBouAdYqsR06 Oyc+YHRodYxmf8TwUndgs0jgx3 xhrSk1HpgfQHPixhRivOreFYI5 x1DsOj4sAIDgqMT1sXX2pP2l JaKiBlC3PNkuO762YiRukERzCk cmG27xO0VnnPQ+BLNyMga8HKXt dUxaQK6dK3BrOKEhmsfvkGOh qJmtCS2sFKKcbvoqJLYcbG5yBR SxA7t0QgHhFfH4NCszG4CmYODk rczwMi01cM0uQcCbDhM7LHwk M2InfjO0PJWoiTPpTLhoXAJ8J4 4fv8G2PPRwPMWlKII5zTT0dH9y bGlnbjogbGVmdDsgdmVydGlj GTcfQEasQ506PYIcaVapGkTeJN luZyBEYXRlOiAgMDMvMjkvMjAy MzwvdGQ+VWWhXVI4iZcmUQAp pKSxBZirVn6vcVfnpNyrYI9cAO YkzaiySWDcwL9rMUAdfNOlzWhq MZ0pSPRizvaeo876FbBqCKF8 DALidPIfR1XptP7rFoJaFKCpUS VxC9RwdSSlDIadC577ZCiaAqZ1 TMKjddYdC4MrMFNlnQkpVuL2 p8W0Oe0Vq4HzeshzR4VqzVSlXg UvHzjlCOx4W9MaEfctaBS+PC90 NZMrKM70OYv8UXD7eUfeKWwr ZWHxU8UirJ9sKrNiQYXvLIFpUv c+PHRhYmxlIHdpZHRoPScxMDAl JtRywLagFO7mOu1cTWDmXIKl jQjwpKYaFzQde5pvKRFwNUlkNK 8rzElqF6CvtBD8PYMgk7l9Yj07 F73gP1AqtKZ+CVXcfXL4pUP2 fT9xNiNbZeW9FMhiN978NuSxxY KnMgidd2cwv7mepGt4IyJ6SBYa ejGjyZecRBO4p6WnTe39T22t IHdpZHRoPSIxNSUiIHZhbGlnbj 4rvM5jIn3+PCMqxEI3sYR1yP5n PjQdNkH9ISpfW342DlVfsBKe Sidrd4lin2wapCh8AzBnUSHzta CniJvmETV7g7QgHt45G0HfrRpg n9OeBwr3qt92nRPev0Z3oLH0 I4OyCARjvsfzoIQocZanLJ9fDP QxhcwtQXHcsS9fATOjY2l7HoId JlE6WSzoF1XivbA7IAXzfYBi IMWffSBIbA7hcskav9vbkibvFm GwLXWsUSo7SKm5LFZqhZjuAaGc YRI4EsA6IJT8lDFbtF4saZfv wnbptJ6eYzg+OAC7hXEtrYSQDQ 1lOjwvdGQ+JOJnYNF9fPsiPGhq NIGnvZ2jBWLkM9i8OxKgAfX1 TRtaI5WcjzN1ZWNqcSWeYBXrfC XAuI3nuumlo9dqnjtwZoOeAJUg FCj6DIk4RZYirYsuTcMwELW9 GgH7SZZ1zAPaiQ5coPermghfzG 9wOyc+HtwfyOfmSLK5SEt1U3Ez Gks4ENNrzUnuGN9sdNUmDOfz Bm1maGkfhUklLY7gCNKmejlec0 00MkSsu2ynRMHnlSAjIJimSXE8 D59mt1O6YDElGNEgKSE4rNB7 jC0qpEsydjgwnXDjhGiagvRqwZ qhRCldLKvcX206XCMouHgwPbBb ZHw8H0UzDjm4OTDrbIsxET7u qLKvHVyvRb5tcPtctYuyCA2vGK Wpbxwre499GtKqp2tgOKSfgRKc OVnzGOR8W62sk7W4IRMoJUUb SSX9qCW4aF6hkBdgxzqmnXPxoK mbnpNedBvlGEjkZCbmS060XNDf yAsaMxHbaUb6V4PdQjx0VZKb dEmkHH0fhPSkRJqiFj5ybVsvcJ xbXL8iOLGzgprmo818OoYni2lt FAEyfQZwWFpiBIW2H17yd1E7 CVNjYHXiMKY8yYI1kH5aqDokss ogbGVmdDsgdmVydGljYWwtYWxp S001HRDfxWjhWlRvzJfmlgEj LKxqUVn7M9PiRuzwyNQ+PC90YW FtNG74qUJbbFGct8qguPt5BbWn GFXtBGQ6dLboEEhph0LjZSBz Z58uaBRck5E9LBGnfEytoVVvZa UsnHY8gF8jPAomberdr3ezwxed Tklpa3wvvc00pT10M64eGByu ODLbEFAtTUDmDVSrbTsuvv1aaB 9wIi8+OIUbgID7oZN5vN0xNDCx DgJ8TByqE902FoZugLHgTagx o7mni4jhsCk7IaQ1DPUlwpBfmI smQNA8j6FtWk29Y22bRNpuZEXg ATGxVUGbZNKeqUqazb3wtJ7v Ii8+SIBfqLU3qBX2zE9aAeJkRr M2WOzuL783StRsmLVuMraaC78g Y1IrgSZ+DZHaRdr1XZPaqQnj FO6cxGWtDOmqEj8oRMZ1ZlXpCd CnIIirE2FaIFVefqldashgnTN8 KVAxWYVfwY08Qp5nxQyzNNKn oEXRnC7piogbd7mopbtmBiJnFE GtPHd7MAh5JNDtqJuvLwArSRI3 GfX4SPZ1jMOfrX3hzXyghahk oU9gD7RqZABwuemiZj98dI4bDj IaFcS6OSlmUti+SLUORI3NLrfb QlVIGxPWSFVJTP05BR42dELh t4O0uJC1Y8DpBBJeewlygskiwA O0WTYnOFUzeH27aUSnRLpxCo1c x0U4b386TDBhUROirP21Ww3y pXbxFNJcwLSHlP9rumjtp5aorh qqPyCbCRDlBQr0NGv9CUIjlOkk KbVjTZB1OpH3GYC8iLHjbX0e pGemjwzsmO0pGyc+MDIvMDQvMT g7EoxiqJU+BGTbQOE0qAzvWLgq ZNAjwT7kUMRoP6n5LuHuCoH5 EPatU4TgNYSgkabbWm17kO2hHv RoFfJ2FXtlH2AhotO1MUXcvLRt LRycBFX0U59oq3D9KUMbDCIf FES6uZU5jS9jbDcvpxtynHVfsD wuviZevDtyTOnyIUuiT610TLMx bRltRzdvFLepSTShPE36EK50 qOYld3C3uHS4M1RgURPduqtfeh lygWZ2HUSyWGAeoJ81kXUbRYgz Hn2nb1Z9u680MRHmZZDbcM04 Eb3djGsoLCZbgHLStI3ymeuuq5 pioiujBkJvHNXqGQu6KQk1FMXa yAcbUlFzQAD8GrT9MUR1jPCx nN7gsFraubsqbD2sGkb+TWFsZT wvdGQ+WAFfAEC0zZkhUIifDBEi nW6cOSSqG4i3TvRbEqD1LKbq H7XbDGWyxfixDp76cS0aFnZmMp E9QJupH5NjgmK5WKTluHDaFLsb DDY8Q70hq8C5HEDjXJOnUYH4 rCS0zM5ddPdmhldtpDQjsKvvee CuwZnqNHemESljO776HPKefDpe En80cVTgvTrpphU8Q2GiFvws dHI+CJ91KVQhQT02gXGhpWCrz7 zemBy6QwKxIQNaFFM2zAdwAOoy h5EwSAAxB69cvVPbd7C5EGRi cAetjNKwZzTpeCE7wE1fNAclui cvu6nlucmgOetth9imjf04cY22 Q10gBScnKOFuHFLhVERlXBRy vSmawm9ncF4lLc5+KBZejUE7kN P3dI6xIrUeFtO0MZheT842NsHp rCRuStyct4nds6gswIa6QmQh HSSpjfSpgIofBCH8a2NnNy27F4 9sIHdpZHRoPSIyMCUiIHZhbGln kf8tcK6zFd1+DF0au5xkov38 lC96oIA+GQAoPWT3kRneNUmnAH SdzD9hHOazFaO4EPWaKvKqfH28 eKAuMTrvTa0heCgscJgqMR3c NMErpidyt277QoQex8weTTXwiN OiYEisUHU5E88ld6D0IOJmKIBr XMT4pMM8tA8gjLyaxmcaxMVr jZsahcAcrNvrBLqcYIgwZ557DL BrmMspBqRwqGBdO0jqodCSWF8s OjwvdGQ+OJUaCSC8wObbCQsc JEBcnM9oBOBfU9p8ObMnAoS8VC srB1LwdvJ2QQSleEBlFBRljHWX mK2sydjao8uevnxzFbBbVBWh YWb8BJi6JRWgqOpqKtBeDYL0Ko L9KKU0lZQncU6czMbkzyrdsV4x Oyc+RklOOjwvdGQ+PHRkIHN0 lDcdCFxjJNUnuW0kTDKnY2h6Gk UuIpY7AKmnX3SfskB1UKSiiVOq ABVtaMJAkB9ahtyxt8ecnycc PmIkUIYhCMw3NFr3RUNnsUotFf SbNVY9DpL8ABX6eFWbnK3ttVgo esixfN6rUyg+TVJOOjwvdGQ+ NWBvQBI9iPkhPUdyQRWprM1lBV XjU7l0PwNrDuB2OTbrV0LlcvX6 FLScdDEhBVOrsRKLxM5inqza p8vhkuwsYcVrJRHbYMn7MLf0XG XltJhfUiMrHSJ3XkV5JSK3zSYn uO7nkSgorlwnkU9jJiz+UGF5 OBV5KB19MY41Z7KoVmpekDViaE U+PHRhYmxlIHdpZHRoPScxMDAl CnLjvSrvEW6dVw4aYMPvTHJd bGxhcHNl (more content not included)... Normal [facility] Consultation Noteon 09-21-19 Consultation Note [id number]#1.00CD:127 Normal [facility] Lab Reportson 09-20-2022 Lab Reports [id number]#1.00CD:127 Normal [facility] RAD - Ultrasound Reporton RAD - Ultrasound Report [id number]#1.00CD:127 Normal [facility] Outside Recordson 09-16-2022 Outside Records [id number]#1.00CD:127 Normal [facility] Auto Diffon 09-14-2022 Basophils/100 WBC (Bld) 0.5 % Normal 0.0-2.0 [facility] Comment on above: Order Comment: Order Added by Discern Expert. Performed By: #### 2 [id number] #### [facility] [address] [place] [address] Basophils/Leukocytes Auto (Bld) [Pure # fraction] 0.0 E9/L Normal 0.0-0.2 [facility] Comment on above: Order Comment: Order Added by Discern Expert. Performed By: #### 2 [id number] #### [facility] [address] [place] [id number] Eosinophils/100 WBC (Bld) 3.2 % Normal 0.0-8.0 [facility] Comment on above: Order Comment: Order Added by Discern Expert. Performed By: #### 2 [id number] #### [facility] [address] [place] [id number] Eosinophils/Leukocytes Auto (Bld) [Pure # fraction] 0.2 E9/L Normal 0.0-0.5 [facility] Comment on above: Order Comment: Order Added by Discern Expert. Performed By: #### 2 [id number] #### [facility] [address] [place] [address] Lymphocytes/100 WBC (Bld) 17.6 % Normal 14.0-50.0 [facility] Comment on above: Order Comment: Order Added by Discern Expert. Performed By: #### 2 635449, 35879557, 4896199, 92921095, 2549879 #### [facility] [address] [place] [address] Lymphocytes/Leukocytes Auto (Bld) [Pure # fraction] 0.9 E9/L Low 1.0-4.0 [facility] Comment on above: Order Comment: Order Added by Discern Expert. Performed By: #### 2 615223, 84249658, 6767269, 55840111, 4945334 #### [facility] [address] [place] [address] 64271 Monocytes/100 WBC (Bld) 10.2 % Normal 4.0-14.0 [facility] Comment on above: Order Comment: Order Added by Discern Expert. Performed By: #### 2 543663, 83527040, 6978281, 98240598, 3787901 #### [facility] [address] [place] [address]113 Monocytes/Leukocytes Auto (Bld) [Pure # fraction] 0.5 E9/L Normal 0.2-1.0 [facility] Comment on above: Order Comment: Order Added by Discern Expert. Performed By: #### 2 297241, 81939267, 4356714, 45510610, 7993052 #### [facility] [address] [place] [address] Neutrophils/100 WBC (Bld) 68.5 % Normal 36.0-75.0 [facility] Comment on above: Order Comment: Order Added by Discern Expert. Performed By: #### 2 504372, 44391651, 3660862, 12874343, 2071777 #### [facility] [address] [place] [address] Neutrophils/Leukocytes Auto (Bld) [Pure # fraction] 3.6 E9/L Normal 2.0-7.5 [facility] Comment on above: Order Comment: Order Added by Discern Expert. Performed By: #### 2 414268, 15068579, 9353087, 00676584, 9219387 #### [facility] [address] [place] [address] BMPon 09-14-2022 Anion gap [Moles/Vol] 10 mmol/L Normal 6-16 [facility] Comment on above: Performed By: #### 2 172908, 12094246, 6985165, 31998867, 0646759 #### [facility] [address] [place] [address] Calcium [Mass/Vol] 8.6 mg/dL Low 8.9-11.1 [facility] Comment on above: Performed By: #### 2 295319, 14588495, 3474349, 25335780, 0765674 #### [facility] [address] [place] [address] Chloride [Moles/Vol] 108 mmol/L Normal 101-111 [facility] Comment on above: Performed By: #### 2 481345, 48394340, 7640112, 12592267, 3130797 #### [facility] [address] [place] [address] CO2 [Moles/Vol] 23 mmol/L Normal 21-31 [facility] Comment on above: Performed By: #### 2 774935, 67372921, 2344247, 59945030, 7237767 #### [facility] [address] [place] [address] Creatinine [Mass/Vol] 2.1 mg/dL High 0.5-1.3 [facility] Comment on above: Performed By: #### 2 918703, 92296680, 1201206, 41601758, 9096937 #### [facility] [address] [place] [address] Glucose [Mass/Vol] 89 mg/dL Normal 55-199 [facility] Comment on above: Result Comment: If t his glucose result represents a fasting glucose, interpretation should refer to the following reference range: 55-99 mg/dL Performed By: #### 2 982986, 95348346, 8042843, 15053674, 4892432 #### [facility] [address] [place] [address] Potassium [Moles/Vol] 4.1 mmol/L Normal 3.5-5.3 [facility] Comment on above: Performed By: #### 2 138219, 36352343, 6173673, 68578775, 2551672 #### [facility] [address] [place] [address] Sodium [Moles/Vol] 137 mmol/L Normal 135-145 [facility] Comment on above: Performed By: #### 2 114469, 89287244, 2803205, 66250902, 5451667 #### [facility] [address] [place] [address] Urea nitrogen [Mass/Vol] 26 mg/dL High 5-21 [facility] Comment on above: Performed By: #### 2 202157, 93146126, 7930196, 87013466, 4217363 #### [facility] [address] 0083257 Urea nitrogen/Creatinine [Mass ratio] 12 No Units Normal 10-20 [facility] Comment on above: Performed By: #### 2 553231, 21278075, 8447608, 62378230, 4912145 #### [facility] [address] 0083257 CBC w/ Auto Diffon 3 Erythrocyte distribution width (RBC) [Ratio] 14.0 % Normal 10.9-14.2 [facility] Comment on above: Performed By: #### 2 354837, 35976782, 6163416, 55641126, 3258854 #### [facility] [address] [place], [place] [address] Hematocrit (Bld) [Volume fraction] 31.6 % Low 37.7-49.0 [facility] Comment on above: Performed By: #### 2 101735, 39900101, 8088522, 91881279, 2794269 #### [facility] [address] [address]83[address] Hemoglobin (Bld) [Mass/Vol] 10.9 g/dL Low 13.5-17.5 [facility] Comment on above: Performed By: #### 2 308831, 13840910, 5379957, 06832698, 9567721 #### [facility] [address] [place] [address] 84163 MCH (RBC) [Entitic mass] 33.0 pg Normal 27.0-34.0 [facility] Comment on above: Performed By: #### 2 801094, 06422009, 2397624, 99589438, 5709330 #### [facility] [address] [place] [address] MCHC (RBC) [Mass/Vol] 34.5 g/dL Normal 31.4-36.0 [facility] Comment on above: Performed By: #### 2 602358, 56076319, 2137398, 01280766, 6726641 #### [facility] [address] [place] [address] MCV (RBC) [Entitic vol] 95.8 fL Normal 80.0-100.0 [facility] Comment on above: Performed By: #### 2 537299, 84229628, 9371734, 73052383, 7752975 #### [facility] [address] [place] [address] Platelet mean volume (Bld) [Entitic vol] 8.9 fL Normal 6.4-10.8 [facility] Comment on above: Performed By: #### 2 731328, 22157621, 8748617, 94337432, 9306329 #### [facility] [address] [place] [address] Platelets (Bld) [#/Vol] 151.0 E9/L Normal 150.0-500. 0 [facility] Comment on above: Performed By: #### 2 361250, 38171512, 4663962, 05273346, 1022333 #### [facility] [address] [place] [address]20 RBC (Bld) [#/Vol] 3.3 E12/L Low 4.3-5.9 [facility] Comment on above: Performed By: #### 2 447660, 11226781, 6729974, 13488830, 6424018 #### [facility] [address] [place] [address] WBC corrected for nucl RBC Auto (Bld) [#/Vol] 5.3 E9/L Normal 4.0-11.0 [facility] Comment on above: Performed By: #### 2 794747, 75838535, 0117306, 57262249, 6087410 #### [facility] [address] [place] [address] Consent for Treatmenton 08-26 Consent for Treatment [id number] Normal [facility] PT & PTTon 09-14-2022 aPTT Coag (PPP) [Time] 29.7 second(s) Normal 25.1-36.5 [facility] Comment on above: Result Comment: Para [...] the same coagulation reagent and instrumentation as [facility]. Currently there are no coagulation studies available worldwide for children to 14 days, and no normal ranges. Heparin therapeutic range (represented by Anti-Factor Xa activity of 0.2 - 0.4 U/mL) corresponds to PTT of 56.6 - 109.0 sec. Performed By: #### 2 645026, 43650494, 7630022, 19595674, 3206862 #### [facility] [address] [place] [address] INR Coag (PPP) [Relative time] 1.0 {INR} Invalid Interpretation Code [facility] Comment on above: Result Comment: INR results are specifically intended to assess patients stabilized on long-term Anticoagulation therapy suggested INR?s ?Less Intensive Anticoagulation? 2.0 ? 3.0 Conventional Range 3.0 ? 4.5 Performed By: #### 2 086989, 90520317, 8308039, 24907384, 5125814 #### [facility] [address] [place] [address] PT Coag (PPP) [Time] 11.7 second(s) Normal 9.4-12.5 [facility] Comment on above: Result Comment: 15 [...] the same coagulation reagent and instrumentation as [facility]. Currently there are no coagulation studies available worldwide for children to 14 days, and no normal ranges. Performed By: #### 2 925804, 92543834, 6411234, 56793535, 8340130 #### [facility] [address] [place] [address] PTH INTACTon 09-14-2022 PTH, Intact 51 pg/mL Normal 15-65 [facility] Comment on above: Performed By: #### T SH, LIPID, T4, FT3, CMP #### [facility] [address] [place], [place] [address] Dr. Alicia Patel UA With Cult Reflexon 2022 Bacteria LM Ql (Urine sed) TRACE Normal Trace [facility] Comment on above: Performed By: #### 2 409632, 29364801, 9199880, 27152368, 9412251 #### [facility] [address] [place] [address] Bilirubin Ql (U) Negative Normal Negative [facility] Comment on above: Performed By: #### 2 004846, 07770621, 2227506, 04353644, 0570862 #### [facility] [address] [place] [address] Clarity (U) CLOUDY Abnormal Clear [facility] Comment on above: Performed By: #### 2 359845, 23683935, 0629684, 99735620, 0139058 #### [facility] [address] [place] [address] Color (U) YELLOW Normal Yellow [facility] Comment on above: Performed By: #### 2 901100, 20338205, 0010641, 63242667, 2632952 #### [facility] [address] [place] [address] Epithelial cells.squamous LM.HPF (Urine sed) [#/Area] 0-2 Normal 0-2 [facility] Comment on above: Performed By: #### 2 850414, 89400269, 5003373, 63175982, 0066227 #### [facility] [address] [address]83[address] Glucose Test strip (U) [Mass/Vol] Negative Normal Negative [facility] Comment on above: Performed By: #### 2 103931, 31194084, 9125662, 01360779, 1091269 #### [facility] [address] [place] [address] Hemoglobin Ql (U) 3+ Abnormal Negative [facility] Comment on above: Performed By: #### 2 917694, 17187091, 3723747, 77125522, 1755643 #### [facility] [address] [place] [address] Ketones (U) [Mass/Vol] Negative Normal Negative [facility] Comment on above: Performed By: #### 2 412313, 77216576, 2871861, 13591296, 0231782 #### [facility] [address] [place] [address] [place].plasma/[place] .RBC (Bld) [Mass ratio] >30 Abnormal 0-3 [facility] Comment on above: Performed By: #### 2 412941, 42787000, 1239730, 47238083, 6761178 #### [facility] [address] [place] [address] Mucus Ql (Urine sed) TRACE Normal [facility] Comment on above: Performed By: #### 2 322959, 67955041, 1453822, 99108790, 1287800 #### [facility] [address] [place] [address] Nitrite Ql (U) Negative Normal Negative [facility] Comment on above: Performed By: #### 2 978831, 41998423, 1935460, 83866087, 3644696 #### [facility] [address] [place] [address] 29145 pH (U) 6.0 [pH] Invalid Interpretation Code 5.0-9.0 [facility] Comment on above: Performed By: #### 2 179444, 51198879, 1130224, 05419618, 9975417 #### [facility] [address] [place] [address] Protein (U) [Mass/Vol] 2+ Abnormal Negative [facility] Comment on above: Performed By: #### 2 239683, 82831094, 1194966, 97719337, 5023820 #### [facility] [address] [place] [address]72 Specific gravity (U) [Rel density] 1.025 Invalid Interpretation Code 1.005-1.03 0 [facility] Comment on above: Performed By: #### 2 031021, 52668870, 1237059, 88583907, 2745076 #### [facility] [address] [place] [address]26 Type of Urine collection method Clean Catch Normal [facility] Comment on above: Performed By: #### 2 469632, 76370867, 2090128, 80158917, 3678220 #### [facility] [address] [place] [address] 06175 Urobilinogen Qn (U) 0.2 {Wil'U}/dL Normal 0.0-1.0 [facility] Comment on above: Performed By: #### 2 539874, 53594766, 3224835, 24868098, 3778929 #### [facility] [address] [place] [address]333 WBC Auto Ql (U) TRACE Abnormal Negative [facility] Comment on above: Performed By: #### 2 495348, 99563876, 6310620, 47223778, 1514177 #### [facility] [address] [place] [address] WBC casts LM.LPF (Urine sed) [#/Area] 0-3 Normal [facility] Comment on above: Performed By: #### 2 521210, 11909310, 0059294, 95569163, 3686345 #### [facility] [address] [place] [address] WBC LM.HPF (Urine sed) [#/Area] 0-5 Normal 0-5 [facility] Comment on above: Performed By: #### 2 755215, 03501828, 1976715, 91332545, 4819670 #### [facility] [address] [place] [address] XR Chest 2 Viewson 3 XR Chest [...] mGy = na DAP = na Normal [facility] eGFRon 09-14-2022 GFR/1.73 sq M.predicted among blacks MDRD (S/P/Bld) [Vol rate/Area] 37 mL/min/1.73 m2 Low >=59 [facility] Comment on above: Order Comment: Order added by Discern Expert. Result Comment: eGFR is race adjusted. AA=. Performed By: #### 2 823409, 04522459, 5507737, 28708899, 2768085 #### [facility] [address] [place] [address] GFR/1.73 sq M.predicted among non-blacks MDRD (S/P/Bld) [Vol rate/Area] 31 mL/min/1.73 m2 Low >=59 [facility] Comment on above: Order Comment: Order added by Discern Expert. Result Comment: Associate Product Integrity Engineer christa kidney disease could be indicated at eGFR's of less than 60 mL/min/1.73m2. Kidney failure is indicated at less than 15 mL/min/1.73m2. Performed By: #### 2 544228, 97071250, 0064768, 20155851, 5123695 #### [facility] [address] [place] [address] HEMOGRAM AND PLATELon 2022 Hematocrit (Bld) [Volume fraction] 32.9 % Critically low 42.0-54.0 [facility] Comment on above: Performed By: #### T SH, LIPID, T4, FT3, CMP #### [facility] [address] [place] [address] Dr. Alicia Patel Hemoglobin (Bld) [Mass/Vol] 10.9 g/dL Critically low 14.0-18.0 [facility] Comment on above: Performed By: #### T SH, LIPID, T4, FT3, CMP #### [facility] [address] [place] [address] Dr. Alicia Patel MCH (RBC) [Entitic mass] 32.6 pg Normal 25.9-34.0 [facility] Comment on above: Performed By: #### T SH, LIPID, T4, FT3, CMP #### [facility] [address] [place] [address] Dr. Alicia Patel MCHC (RBC) [Mass/Vol] 33.1 g/dL Normal 29.9-35.2 [facility] Comment on above: Performed By: #### T SH, LIPID, T4, FT3, CMP #### [facility] [address] [place] [address] Dr. Alicia Patel MCV (RBC) [Entitic vol] 98.5 fL Critically high 80.0-94.0 [facility] Comment on above: Performed By: #### T SH, LIPID, T4, FT3, CMP #### [facility] [address] [place] [address] Dr. Alicia Patel PLT 145 103/ul Critically low 150-450 [facility] Comment on above: Performed By: #### T SH, LIPID, T4, FT3, CMP #### [facility] [address] [place] [address] Dr. Alicia Patel RBC 3.34 106/ul Critically low 4.70-6.10 [facility] Comment on above: Performed By: #### T SH, LIPID, T4, FT3, CMP #### [facility] [address] [place] [address] Dr. Alicia Patel WBC 5.1 103/ul Normal 4.0-11.0 [facility] Comment on above: Performed By: #### T SH, LIPID, T4, FT3, CMP #### [facility] [address] [place] [address] Dr. Alicia Patel MAGNESIUMon 09-13-2022 Magnesium [Mass/Vol] 1.5 mg/dL Critically low 1.8-2.4 [facility] Comment on above: Performed By: #### T SH, LIPID, T4, FT3, CMP #### [facility] [address] [place] [address] Dr. Alicia Patel RENAL FUNCTION PANELon 09-13 Albumin [Mass/Vol] 3.5 g/dL Normal 3.4-5.0 [facility] Comment on above: Performed By: #### U RTPCR #### [facility] [address] [place] [address] Dr. Alicia Patel Calcium [Mass/Vol] 8.4 mg/dL Critically low 8.5-10.1 [facility] Comment on above: Performed By: #### U RTPCR #### [facility] [address] [address] [address] Alicia Patel Chloride [Moles/Vol] 107 mmol/L Normal 98-107 [facility] Comment on above: Performed By: #### U RTPCR #### [facility] [address] [address] [address] Alicia Patel CO2 [Moles/Vol] 25.1 mmol/L Normal 21.0-32.0 [facility] Comment on above: Performed By: #### U RTPCR #### [facility] [address] [address] [address] Alicia Patel Creatinine [Mass/Vol] 1.96 mg/dL Critically high 0.70-1.30 [facility] Comment on above: Performed By: #### U RTPCR #### [facility] [address] [place] [address] Dr. Alicia Patel EGFR-AF MACEDONIAN 40 mL/min/1.73m2 Critically low >=60 [facility] Comment on above: Performed By: #### U RTPCR #### [facility] [address] [place] [address] Dr. Alicia Patel EGFR-NON AF MACEDONIAN 33 mL/min/1.73m2 Critically low >=60 [facility] Comment on above: Performed By: #### U RTPCR #### [facility] [address] [place] [address] Dr. Alicia Patel Glucose [Mass/Vol] 151 mg/dL Critically high 74-106 [facility] Comment on above: Performed By: #### U RTPCR #### [facility] [address] [address] [address] Alicia Patel Phosphate [Mass/Vol] 3.5 mg/dL Normal 2.6-4.7 [facility] Comment on above: Performed By: #### U RTPCR #### [facility] [address] [address] [address] Alicia Patel Potassium [Moles/Vol] 4.3 mmol/L Normal 3.5-5.1 [facility] Comment on above: Performed By: #### U RTPCR #### [facility] [address] [place] [address] Dr. Alicia Patel Sodium [Moles/Vol] 142 mmol/L Normal 136-145 [facility] Comment on above: Performed By: #### U RTPCR #### [facility] [address] [place] [address] Dr. Alicia Patel Urea nitrogen [Mass/Vol] 23.0 mg/dL Critically high 7.0-18.0 [facility] Comment on above: Performed By: #### U RTPCR #### [facility] [address] [place] [address] Dr. Alicia Patel UA RANDOM W/MICROSCOPICon BACTERIA TRACE Abnormal NONE SEEN [facility] Comment on above: Performed By: #### T SH, LIPID, T4, FT3, CMP #### [facility] [address] [place] [address] Dr. Alicia Patel Bilirubin Ql (U) Negative Normal NEGATIVE [facility] Comment on above: Performed By: #### T SH, LIPID, T4, FT3, CMP #### [facility] [address] [place] [address] Dr. Alicia Patel CAST NONE SEEN Normal NONE SEEN [facility] Comment on above: Performed By: #### T SH, LIPID, T4, FT3, CMP #### [facility] [address] [place] [address] Dr. Alicia Patel Clarity (U) CLEAR Normal CLEAR [facility] Comment on above: Performed By: #### T SH, LIPID, T4, FT3, CMP #### [facility] [address] [place] [address] Dr. Alicia Patel Color (U) LT. YELLOW Normal YELLOW [facility] Comment on above: Performed By: #### T SH, LIPID, T4, FT3, CMP #### [facility] [address] [place] [address] Dr. Alicia Patel Crystals LM Nom (Urine sed) NONE SEEN Normal NONE SEEN [facility] Comment on above: Performed By: #### T SH, LIPID, T4, FT3, CMP #### [facility] [address] [address] [address] Alicia Patel Epithelial cells LM Ql (Urine sed) RARE Normal NONE SEEN /RARE [facility] Comment on above: Performed By: #### T SH, LIPID, T4, FT3, CMP #### [facility] [address] [address] [address] Alicia Patel Glucose Ql (U) 500 mg/dl Abnormal NEGATIVE [facility] Comment on above: Performed By: #### T SH, LIPID, T4, FT3, CMP #### [facility] [address] [address] [address] Alicia Patel Hemoglobin Ql (U) LARGE Abnormal NEGATIVE [facility] Comment on above: Performed By: #### T SH, LIPID, T4, FT3, CMP #### [facility] [address] [place] [address] Dr. Alicia Patel Ketones Ql (U) Negative Normal NEGATIVE [facility] Comment on above: Performed By: #### T SH, LIPID, T4, FT3, CMP #### [facility] [address] [place] [address] Dr. Alicia Patel LEUKOCYTES Negative Normal NEGATIVE [facility] Comment on above: Performed By: #### T SH, LIPID, T4, FT3, CMP #### [facility] [address] [address] [address] Alicia Patel MUCOUS NONE SEEN Normal NONE SEEN [facility] Comment on above: Performed By: #### T SH, LIPID, T4, FT3, CMP #### [facility] [address] [address] [address] Alicia Patel Nitrite Ql (U) Negative Normal NEGATIVE [facility] Comment on above: Performed By: #### T SH, LIPID, T4, FT3, CMP #### [facility] [address] [address] [address] Alicia Patel pH (U) 6.0 [pH] Normal 5-9 [facility] Comment on above: Performed By: #### T SH, LIPID, T4, FT3, CMP #### [facility] [address] [place] [address] Dr. Alicia Patel RBC 20-50 Abnormal 0-2 [facility] Comment on above: Performed By: #### T SH, LIPID, T4, FT3, CMP #### [facility] [address] [place] [address] Dr. Alicia Patel SPEC GRAVITY 1.020 Normal 1.005-<=1. 025 [facility] Comment on above: Performed By: #### T SH, LIPID, T4, FT3, CMP #### [facility] [address] [place] [address] Dr. Alicia Patel UA PROTEIN 100 mg/dl Abnormal NEGATIVE/ TRACE [facility] Comment on above: Performed By: #### T SH, LIPID, T4, FT3, CMP #### [facility] [address] [place] [address] Dr. Alicia Patel Urobilinogen Qn (U) 0.2 {Wil'U}/dL Normal 0.2 - 1. 0 [facility] Comment on above: Performed By: #### T SH, LIPID, T4, FT3, CMP #### [facility] [address] [place] [address] Dr. Alicia Patel WBC 0-2 Abnormal NONE SEEN [facility] Comment on above: Performed By: #### T SH, LIPID, T4, FT3, CMP #### [facility] [address] [place] [address] Dr. Alicia Patel URIC ACID SERUMon 09-13-2022 Urate [Mass/Vol] 5.8 mg/dL Normal 3.5-7.2 [facility] Comment on above: Performed By: #### U RTPCR #### [facility] Laboratory [address] [place] [address] Dr. Alicia Patel URINE T PROTEIN CREAT RATIOo n 09-13-2022 Protein (U) [Mass/Vol] 122.4 mg/dL Critically high <=12.0 [facility] Comment on above: Performed By: #### U RTPCR #### [facility] [address] [place] [address] Dr. Alicia Patel UR PROT CREAT RAT 1.38 Normal [facility] Comment on above: Performed By: #### U RTPCR #### [facility] [address] [address] [address] Alicia Patel URINE CREAT 88.74 mg/dL Normal 20.00-300. 00 [facility] Comment on above: Performed By: #### U RTPCR #### [facility] [address] [address] [address] Alicia Patel VITAMIN D 25 OHon 09-13-2022 VIT D 25-OH 58.0 ng/mL Normal [facility] Comment on above: Performed By: #### T SH, LIPID, T4, FT3, CMP #### [facility] [address] [place] [address] Dr. Alicia Patel VIT D RANGES SEE BELOW Normal [facility] Comment on above: Result Comment: <20 ng/mL Vit D deficient 20 - <30 ng/mL Vit D insufficient 30 - 100 ng/mL Vit D sufficient >100 ng/mL Potential Toxicity Performed By: #### T SH, LIPID, T4, FT3, CMP #### [facility] [address] [place] [address] Dr. Alicia Patel Pre-Certification Formon Pre-Certification Form [id number]#[id number]:127 Normal [facility] RAD - Ultrasound Reporton RAD - Ultrasound Report [id number]#1.00CD:127 Normal [facility] Screenson 09-07-2022 Screens [id number]#1.00CD:12 7 Normal [facility] Patient Educationon 09-07-19 23 Patient Education [...] these instructions at home: Medicines ? Take zdzc-diu-oewuxmh and prescription medicines only as told by [...] 11/29/2008 Document Revised: 10/30/2019 Document Reviewed: 10/30/2019 [employer] Patient Education ? 2019 [employer]. Isamar Carrillo [facility] Urology Office/Clinic Noteon 09-06-2022 Urology Office/Clinic Note Chief Complaint Pt is here for [facility] ER f/u HPI Staff Victorino is a 82 y.o. male here for hospital follow up. Pt was seen at [facility] & [facility]. Previous Dx: acute kidney failure, BPH w/ urinary obstruction, elevated PSA, ED, flank pain, hydronephrosis, kidney stone, prostate cancer, ureteral stone, urinary retention. S/P cysto/stent removal done on 04/15/20, cysto/bilateral dilation ureteral/stent done on 03/11/20, TURP done on 08/01/19, biopsy of prostate done on 07/04/19, cysto/RG/laser done on 06/27/19. Pt presented to [facility] on 08/11/22 for shortness of breath. Pt presented to [facility] later that evening on 08/11/22 for abdominal [...] the prior CT scan performed at the [facility]. The options include both nephroscopic/ureteroscopic approach with [...] off asp (more content not included)... Normal [facility] Comment on above: Result Comment: Elec [...] TYLER MONSIVAIS Date: 2022-09-01 09:33 Normal [facility] CT chest wo con high reson 0 08-31-2022 CT chest wo con high res [facility] [place] [address] [place] [id number] Scan Report Signed Patient: Victorino Smyth MR#: [id number] : 1940 Acct:[id number] Age/Sex: 82 / M ADM Date: 08/31/22 Loc: CT Room: Type: [facility] Attending Dr: Hiral Interiano MD Copies to: Hiral Interiano MD Ordering Provider: Hiral Interiano MD Date of Service: 08/31/22 CT/CT chest wo con high res: follow up left lower lung nodule CT CHEST WITHOUT IV CONTRAST: High-resolution protocol. CLINICAL HISTORY: Lung nodule seen on outside imaging. COMPARISON: CT abdomen and pelvis from [facility] 08/11/2022 TECHNIQUE: Spiral images were obtained through [...] Perez Jr., DManoharOManohar08/31/2022 3:25 PM Dictation Location: [place] [address] Transcribed By: [facility] 08/31/22 1525 Dictated By: Ifeanyi Perez Jr, DO 08/31/22 1520 Signed By: 08/31/22 1525 Normal [facility] PSA, FREE AND TOTAL RATIOon 08-25-2022 % Free PSA 13.7 % Normal [facility] Comment on above: Result Comment: The [...] T SH, LIPID, T4, FT3, CMP #### [facility] [address] [place] [address] Dr. Alicia Patel Prostate specific Ag [Mass/Vol] 6.2 ng/mL Critically high 0.0-4.0 [facility] Comment on above: Result Comment: Dwight JUAREZ methodology. . According to the [employer], Serum PSA should decrease and [...] T SH, LIPID, T4, FT3, CMP #### [facility] [address] [address] [address] Alicia Patel PSA, Free 0.85 ng/mL Normal N/A [facility] Comment on above: Result Comment: Dwight linares ECLIA methodology. Performed By: #### T SH, LIPID, T4, FT3, CMP #### [facility] [address] [place] [address] Dr. Alicia DAVALOS BLD IMMUNO SCREENon 07-29 OCCULT BLOOD Negative Normal NEGATIVE [facility] Comment on above: Performed By: #### T SH, LIPID, T4, FT3, CMP #### [facility] [address] [place] [address] Dr. Alicia Patel CBC AUTO DIFFon 08-21-2022 BASO # 0.0 103/ul Normal 0.0-0.1 [facility] Comment on above: Performed By: #### U RTPCR #### [facility] [address] [place] [address] Dr. Alicia Patel Basophils/100 WBC (Bld) 0.3 % Normal 0.2-2.0 [facility] Comment on above: Performed By: #### U RTPCR #### [facility] [address] [place] [address] Dr. Alicia Patel EO # 0.2 103/ul Normal 0.0-0.7 [facility] Comment on above: Performed By: #### U RTPCR #### [facility] [address] [place] [address] Dr. Alicia Patel Eosinophils/100 WBC (Bld) 3.2 % Normal 0.9-7.0 [facility] Comment on above: Performed By: #### U RTPCR #### [facility] [address] [place] [address] Dr. Alicia Patel Erythrocyte distribution width (RBC) [Ratio] 12.9 % Normal 11.0-15.0 [facility] Comment on above: Performed By: #### U RTPCR #### [facility] [address] [place] [address] Dr. Alicia Patel Hematocrit (Bld) [Volume fraction] 35.4 % Critically low 42.0-54.0 [facility] Comment on above: Performed By: #### U RTPCR #### [facility] [address] [place] [address] Dr. Alicia Patel Hemoglobin (Bld) [Mass/Vol] 11.7 g/dL Critically low 14.0-18.0 [facility] Comment on above: Performed By: #### U RTPCR #### [facility] [address] [place] [address] Dr. Alicia Patel IG # 0.08 10e3/ul Critically high 0.00-0.03 [facility] Comment on above: Performed By: #### U RTPCR #### [facility] [address] [place] [address] Dr. Alicia Patel IG % 1.2 % Critically high 0.0-0.5 [facility] Comment on above: Performed By: #### U RTPCR #### [facility] [address] [place] [address] Dr. Alicia Patel LYMPH # 1.1 103/ul Critically low 1.2-3.8 [facility] Comment on above: Performed By: #### U RTPCR #### [facility] [address] [place] [address] Dr. Alicia Patel Lymphocytes/100 WBC (Bld) 16.6 % Critically low 20.5-60.0 [facility] Comment on above: Performed By: #### U RTPCR #### [facility] [address] [place] [address] Dr. Alicia Patel MANUAL DIFF REQ NO Normal [facility] Comment on above: Performed By: #### U RTPCR #### [facility] [address] [place] [address] Dr. Alicia Patel MCH (RBC) [Entitic mass] 32.4 pg Normal 25.9-34.0 [facility] Comment on above: Performed By: #### U RTPCR #### [facility] [address] [place] [address] Dr. Alicia Patel MCHC (RBC) [Mass/Vol] 33.1 g/dL Normal 29.9-35.2 [facility] Comment on above: Performed By: #### U RTPCR #### [facility] [address] [address] [address] Alicia Patel MCV (RBC) [Entitic vol] 98.1 fL Critically high 80.0-94.0 [facility] Comment on above: Performed By: #### U RTPCR #### [facility] [address] [place] [address] Dr. Alicia Patel MONO # 0.6 103/ul Normal 0.3-0.8 [facility] Comment on above: Performed By: #### U RTPCR #### [facility] [address] [place] [address] Dr. Alicia Patel Monocytes/100 WBC (Bld) 8.8 % Normal 1.7-12.0 [facility] Comment on above: Performed By: #### U RTPCR #### [facility] [address] [place] [address] Dr. Alicia Patel NEUT # 4.8 103/ul Normal 1.4-6.5 [facility] Comment on above: Performed By: #### U RTPCR #### [facility] [address] [place] [address] Dr. Alicia Patel Neutrophils/100 WBC (Bld) 69.9 % Normal 43.0-75.0 [facility] Comment on above: Performed By: #### U RTPCR #### [facility] [address] [place] [address] Dr. Aliica Patel Platelet mean volume (Bld) [Entitic vol] 10.4 fL Normal 9.5-13.5 [facility] Comment on above: Performed By: #### U RTPCR #### [facility] [address] [place] [address] Dr. Alicia Patel PLT 200 103/ul Normal 150-450 [facility] Comment on above: Performed By: #### U RTPCR #### [facility] [address] [place] [address] Dr. Alicia Patel RBC 3.61 106/ul Critically low 4.70-6.10 [facility] Comment on above: Performed By: #### U RTPCR #### [facility] [address] [address] [address] Alicia Patel WBC 6.8 103/ul Normal 4.0-11.0 [facility] Comment on above: Performed By: #### U RTPCR #### [facility] [address] [place] [address] Dr. Alicia Patel FREE T3on 08-21-2022 FREE T3 1.91 pg/mlL Critically low 2.18-3.98 [facility] Comment on above: Performed By: #### T SH, LIPID, T4, FT3, CMP #### [facility] [address] [place] [address] Dr. Alicia Patel GLYCOHEMOGLOBIN A1Con 2022 ADA RECOMMENDATION SEE BELOW Normal [facility] Comment on above: Result Comment: ADA RECOMMENDED LIMIT 4.0 - 6.0 ADA THERAPEUTIC TARGET < 7.0 ACTION SUGGESTED > 7.0 Performed By: #### T SH, LIPID, T4, FT3, CMP #### [facility] [address] [place] [address] Dr. Alicia Patel Glucose [Mass/Vol] 194 mg/dL Normal [facility] Comment on above: Performed By: #### T SH, LIPID, T4, FT3, CMP #### [facility] [address] [place] [address] Dr. Alicia Patel HbA1c (Bld) [Mass fraction] 8.4 % Critically high 4.5-6.2 [facility] Comment on above: Performed By: #### T SH, LIPID, T4, FT3, CMP #### [facility] [address] [place] [address] Dr. Alicia Patel LIPID PROFILEon 08-21-2022 CHOL-HDL RATIO NORM SEE BELOW Normal [facility] Comment on above: Result Comment: 3.3 - 4.4 LOW RISK 4.4 - 7.1 AVERAGE RISK 7.1 - 11.0 MODERATE RISK >11.0 HIGH RISK Performed By: #### T SH, LIPID, T4, FT3, CMP #### [facility] [address] [place] [address] Dr. Alicia Patel Cholesterol [Mass/Vol] 120 mg/dL Normal <=200 Th [facility] Comment on above: Performed By: #### T SH, LIPID, T4, FT3, CMP #### [facility] [address] [address] [address] Alicia Patel Cholesterol in HDL [Mass/Vol] 30 mg/dL Critically low 40-60 [facility] Comment on above: Performed By: #### T SH, LIPID, T4, FT3, CMP #### [facility] [address] [address] [address] Alicia Patel Cholesterol in LDL [Mass/Vol] 59.8 mg/dL Normal [facility] Comment on above: Performed By: #### T SH, LIPID, T4, FT3, CMP #### [facility] [address] [place] [address] Dr. Alicia Patel Cholesterol.total/Chol esterol in HDL [Mass ratio] 4.0 {ratio} Normal [facility] Comment on above: Performed By: #### T SH, LIPID, T4, FT3, CMP #### [facility] [address] [place] [address] Dr. Alicia Patel HDL NORMAL > or = 60 mg/dl - LO W CARDIOVASCULAR RISK <40 mg/dl - HIGH CARDIOVASCULAR RISK Normal [facility] Comment on above: Performed By: #### T SH, LIPID, T4, FT3, CMP #### [facility] [address] [place] [address] Dr. Alicia Patel LDL CALC NORMAL SEE BELOW Normal [facility] Comment on above: Result Comment: <100 mg/dl OPTIMAL 100 - 129 mg/dl NEAR OR ABOVE OPTIMAL 130 - 159 mg/dl BORDERLINE HIGH 160 - 189 mg/dl HIGH >190 mg/dl VERY HIGH Performed By: #### T SH, LIPID, T4, FT3, CMP #### [facility] [address] [place] [address] Dr. Alicia Patel Triglyceride [Mass/Vol] 151 mg/dL Critically high <=150 [facility] Comment on above: Performed By: #### T SH, LIPID, T4, FT3, CMP #### [facility] [address] [address] [address] Alicia Patel VLDL CALC 30.2 mg/dL Normal [facility] Comment on above: Performed By: #### T SH, LIPID, T4, FT3, CMP #### [facility] [address] [place] [address] Dr. Alicia Patel PROF 14(COMP METB)on 023 Albumin [Mass/Vol] 3.3 g/dL Critically low 3.4-5.0 [facility] Comment on above: Performed By: #### T SH, LIPID, T4, FT3, CMP #### [facility] [address] [place] [address] Dr. Alicia Patel Albumin/Globulin [Mass ratio] 0.9 {ratio} Normal [facility] Comment on above: Performed By: #### T SH, LIPID, T4, FT3, CMP #### [facility] [address] [place] [address] Dr. Alicia Patel ALP [Catalytic activity/Vol] 79 U/L Normal 46-116 [facility] Comment on above: Performed By: #### T SH, LIPID, T4, FT3, CMP #### [facility] [address] [address] [address] Alicia Patel ALT [Catalytic activity/Vol] 61 U/L Normal 16-63 [facility] Comment on above: Performed By: #### T SH, LIPID, T4, FT3, CMP #### [facility] [address] [address] [address] Alicia Patel Anion gap [Moles/Vol] 12.6 mmol/L Normal [facility] Comment on above: Performed By: #### T SH, LIPID, T4, FT3, CMP #### [facility] [address] [place] [address] Dr. Alicia Patel AST [Catalytic activity/Vol] 39 U/L Critically high 15-37 [facility] Comment on above: Performed By: #### T SH, LIPID, T4, FT3, CMP #### [facility] [address] [place] [address] Dr. Alicia Patel Bilirubin [Mass/Vol] 0.7 mg/dL Normal 0.2-1.0 [facility] Comment on above: Performed By: #### T SH, LIPID, T4, FT3, CMP #### [facility] [address] [place] [address] Dr. Alicia Patel Calcium [Mass/Vol] 8.9 mg/dL Normal 8.5-10.1 [facility] Comment on above: Performed By: #### T SH, LIPID, T4, FT3, CMP #### [facility] [address] [place] [address] Dr. Alicia Patel Chloride [Moles/Vol] 111 mmol/L Critically high 98-107 [facility] Comment on above: Performed By: #### T SH, LIPID, T4, FT3, CMP #### [facility] [address] [place] [address] Dr. Alicia Patel CO2 [Moles/Vol] 24.0 mmol/L Normal 21.0-32.0 [facility] Comment on above: Performed By: #### T SH, LIPID, T4, FT3, CMP #### [facility] [address] [place] [address] Dr. Alicia Patel Creatinine [Mass/Vol] 1.80 mg/dL Critically high 0.70-1.30 [facility] Comment on above: Performed By: #### T SH, LIPID, T4, FT3, CMP #### [facility] [address] [place] [address] Dr. Alicia Patel EGFR-AF MACEDONIAN 44 mL/min/1.73m2 Critically low >=60 [facility] Comment on above: Performed By: #### T SH, LIPID, T4, FT3, CMP #### [facility] [address] [place] [address] Dr. Alicia Patel EGFR-NON AF MACEDONIAN 36 mL/min/1.73m2 Critically low >=60 [facility] Comment on above: Performed By: #### T SH, LIPID, T4, FT3, CMP #### [facility] [address] [place] [address] Dr. Alicia Patel Globulin (S) [Mass/Vol] 3.5 g/dL Normal [facility] Comment on above: Performed By: #### T SH, LIPID, T4, FT3, CMP #### [facility] [address] [address] [address] Alicia Patel Glucose [Mass/Vol] 118 mg/dL Critically high 74-[address] [facility] Comment on above: Performed By: #### T SH, LIPID, T4, FT3, CMP #### [facility] [address] [address] [address] Alicia Patel Potassium [Moles/Vol] 4.6 mmol/L Normal 3.5-5.1 [facility] Comment on above: Performed By: #### T SH, LIPID, T4, FT3, CMP #### [facility] [address] [place] [address] Dr. Alicia Patel Protein [Mass/Vol] 6.8 g/dL Normal 6.4-8.2 [facility] Comment on above: Performed By: #### T SH, LIPID, T4, FT3, CMP #### [facility] [address] [place] [address] Dr. Alicia Patel Sodium [Moles/Vol] 143 mmol/L Normal 136-145 [facility] Comment on above: Performed By: #### T SH, LIPID, T4, FT3, CMP #### [facility] [address] [place] [address] Dr. Alicia Patel Urea nitrogen [Mass/Vol] 31.0 mg/dL Critically high 7.0-18.0 [facility] Comment on above: Performed By: #### T SH, LIPID, T4, FT3, CMP #### [facility] [address] [place] [address] Dr. Alicia Patel Urea nitrogen/Creatinine [Mass ratio] 17.2 mg/mg Normal [facility] Comment on above: Performed By: #### T SH, LIPID, T4, FT3, CMP #### [facility] [address] [place] [address] Dr. Alicia Patel T4on 08-21-2022 T4 [Mass/Vol] 7.70 ug/dL Normal 4.50-12.10 [facility] Comment on above: Performed By: #### T SH, LIPID, T4, FT3, CMP #### [facility] [address] [place] [address] Dr. Alicia Patel TSHon 08-21-2022 TSH 1.138 uIU/mL Normal 0.358-3.74 0 [facility] Comment on above: Performed By: #### T SH, LIPID, T4, FT3, CMP #### [facility] [address] [place] [address] Dr. Alicia Patel RENAL FUNCTION PANELon 08-18 Albumin [Mass/Vol] 3.3 g/dL Critically low 3.4-5.0 [facility] Comment on above: Performed By: #### U RTPCR #### [facility] [address] [place] [address] Dr. Alicia Patel Calcium [Mass/Vol] 8.3 mg/dL Critically low 8.5-10.1 [facility] Comment on above: Performed By: #### U RTPCR #### [facility] [address] [place] [address] Dr. Alicia Patel Chloride [Moles/Vol] 109 mmol/L Critically high 98-107 [facility] Comment on above: Performed By: #### U RTPCR #### [facility] [address] [place] [address] Dr. Alicia Patel CO2 [Moles/Vol] 22.1 mmol/L Normal 21.0-32.0 [facility] Comment on above: Performed By: #### U RTPCR #### [facility] [address] [place] [address] Dr. Alicia Patel Creatinine [Mass/Vol] 2.14 mg/dL Critically high 0.70-1.30 [facility] Comment on above: Performed By: #### U RTPCR #### [facility] [address] [place] [address] Dr. Alicia Patel EGFR-AF MACEDONIAN 36 mL/min/1.73m2 Critically low >=60 [facility] Comment on above: Performed By: #### U RTPCR #### [facility] [address] [address] [address] Alicia Patel EGFR-NON AF MACEDONIAN 30 mL/min/1.73m2 Critically low >=60 [facility] Comment on above: Performed By: #### U RTPCR #### [facility] [address] [address] [address] Alicia Patel Glucose [Mass/Vol] 102 mg/dL Normal 74-106 [facility] Comment on above: Performed By: #### U RTPCR #### [facility] [address] [address] [address] Alicia Patel Phosphate [Mass/Vol] 3.1 mg/dL Normal 2.6-4.7 [facility] Comment on above: Performed By: #### U RTPCR #### [facility] [address] [address] [address] Alicia Patel Potassium [Moles/Vol] 3.9 mmol/L Normal 3.5-5.1 [facility] Comment on above: Performed By: #### U RTPCR #### [facility] [address] [address] [address] Alicia Patel Sodium [Moles/Vol] 141 mmol/L Normal 136-145 [facility] Comment on above: Performed By: #### U RTPCR #### [facility] [address] [address] [address] Alicia Patel Urea nitrogen [Mass/Vol] 41.0 mg/dL Critically high 7.0-18.0 [facility] Comment on above: Performed By: #### U RTPCR #### [facility] [address] [address] [address] Alicia Patel ED Note-Physicianon 08-17-19 ED Note-Physician [id number]:127 Normal [facility] RAD - CT Reporton 08-17-[address]22 RAD - CT Report [id number]#1.00CD:127 [facility] RAD - MISCon 08-17-2022 RAD [facility] [id number]:127 [facility] MIS [id number]#1.00CD:127 [facility] Insurance Correspondence Off iceon 08-16-2022 Insurance Correspondence Office [id number] [facility] Basic Metabolic Panelon 07-28 Creatinine Clr Calc Pharmacy [facility] Comment on above: Result Comment: PERF ORMED BY: [place] [address] PATHOLOGIST DRAFTER CHIE[employer] DESIGN DIANDRA LACY M.D. Performed By: #### P T #### [address] Estimated GFR ( Yana 21 [facility] Comment on above: Result Comment: GFR estimated reference range: According to KDOQI guidelines, <60 ml/min/1.73m2 is sufficient to diagnose a patient with chronic kidney disease. Performed By: #### P T #### [address] Estimated GFR (Non- Am 17 [facility] Comment on above: Performed By: #### P T #### [address] Estimated glomerular filtrat ion rate (GFR) non- AmericanOrdered By: Hiral Interiano on 08-15-2022 GFR/1.73 sq M.predicted among non-blacks MDRD (S/P/Bld) [Vol rate/Area] 17 mL/Min [facility] Glucose Glucometer (BldC) [M ass/Vol]Ordered By: Hiral Interiano on 08-15-2022 Glucose [Mass/Vol] 135 mg/dL [facility] Comment on above: Random Glucose Refer ence Range is dependent on time and content of last meal. Glucose of more than 200 mg/dL in a nonstressed, ambulatory subject supports the diagnosis of Diabetes Mellitus. Glucose Poct Glucometerson 0 08-15-2022 Glucose [Mass/Vol] 135 mg/dL Normal [facility] Comment on above: Result Comment: [place] Glucose Reference Range is dependent on time and content of last meal. Glucose of more than 200 mg/dL in a nonstressed, ambulatory subject supports the diagnosis of Diabetes Mellitus. PERFORMED BY: [place] [address] PATHOLOGIST DRAFTER CHIE[employer] DESIGN DIANDRA LACY M.D. Performed By: #### G LULS ####Point of Care testing, Glucose [Mass/Vol] 163 mg/dL Normal [facility] Comment on above: Result Comment: [facility] Glucose Reference Range is dependent on time and content of last meal. Glucose of more than 200 mg/dL in a nonstressed, ambulatory subject supports the diagnosis of Diabetes Mellitus. PERFORMED BY: [place] [address] PATHOLOGIST DRAFTER [employer]IE[employer] DESIGN DIANDRA LACY M.D. Performed By: #### P T #### [facility] [address] [place] [address] No Panel InformationOrdered By: Hiral Interiano on 08-15-2022 Estimated GFR () 21 mL/Min [facility] Comment on above: GFR estimated refere nce range: According to KDOQI guidelines, <60 ml/min/1.73m2 is sufficient to diagnose a patient with chronic kidney disease. Pharmacy Creatinine Clearance (Chem 21.94 [facility] Serum or plasma anion gap de terminationOrdered By: Hiral Interiano on 08-15-2022 Anion gap [Moles/Vol] 10.3 mmol/L Normal 6.0-15.0 [facility] Comment on above: Performed By: #### P T #### [facility] [address] [place] [address] Serum or plasma calcium alpesh urement (mass/volume)Ordered By: Hiral Interiano on 08-15-2022 Calcium [Mass/Vol] 7.7 mg/dL Low 8.2-10.2 [facility] Comment on above: Performed By: #### P T #### [facility] [address] Serum or plasma chloride adina surement (moles/volume)Ordered By: Hiral Interiano on 08-15-2022 Chloride [Moles/Vol] 112 mmol/L Normal 95-114 [facility] Comment on above: Performed By: #### P T #### [address] Serum or plasma creatinine m easurement with calculation of estimated glomerular filtrOrdered By: Hiral Interiano on 08-15-2022 Creatinine [Mass/Vol] 3.46 mg/dL Significan t change up 0.64-1.27 [facility] Comment on above: Delta: 6.60 on 08/14-432 Performed By: #### P T #### [address] Serum or plasma glucose alpesh urement (mass/volume)Ordered By: Hiral Interiano on 08-15-2022 Glucose [Mass/Vol] 140 mg/dL High 70-100 [facility] Comment on above: ADA recommended refe rence rangeRandom Glucose Reference Range is dependent on time and content of last meal. Glucose of more than 200 mg/dL in a nonstressed, ambulatory subject supports the diagnosis of Diabetes Mellitus. Result Comment: [place] Glucose Reference Range is dependent on time and content of last meal. Glucose of more than 200 mg/dL in a nonstressed, ambulatory subject supports the diagnosis of Diabetes Mellitus. ADA recommended reference range Performed By: #### P T #### [facility] [address] Serum or plasma potassium me asurement (moles/volume)Ordered By: Hiral Interiano on 08-15-2022 Potassium [Moles/Vol] 3.8 mmol/L Normal 3.5-5.1 [facility] Comment on above: Performed By: #### P T #### [address] Serum or plasma sodium measu rement (moles/volume)Ordered By: Hiral Interiano on 08-15-2022 Sodium [Moles/Vol] 140 mmol/L Normal 136-146 [facility] Comment on above: Performed By: #### P T #### [address] Serum or plasma total carbon dioxide measurement (moles/volume)Ordered By: Hiral Interiano on 08-15-2022 CO2 [Moles/Vol] 21.5 mmol/L Low 22.0-30.0 [facility] Comment on above: Performed By: #### P T #### [address] Serum or plasma urea nitroge n measurement (mass/volume)Ordered By: Hiral Interiano on 08-15-2022 Urea nitrogen [Mass/Vol] 45 mg/dL High 9-23 [facility] Comment on above: Performed By: #### P T #### [address] Aerobic Cultureon 08-14-2022 Aerobic Culture ORGANISM: Rosanna al bicans (O:CANALB) Quantity of Growth Light Growth Gram Stain Result 3+ Epithelial Cells 2+ White Blood Cells 3+ Gram Positive Cocci 2+ Gram Negative Bacilli PERFORMED BY: [place] [address] PATHOLOGIST DRAFTER [employer]IE[employer] DESIGN DIANDRA LACY M.D. [facility] Comment on above: Performed By: #### B MP #### [address] Basic Metabolic Panelon 07-28 Anion gap [Moles/Vol] 13.0 mmol/L Normal 6.0-15.0 [facility] Comment on above: Performed By: #### C BC, BMP ####[facility] [address] [place] [address] Calcium [Mass/Vol] 7.3 mg/dL Low 8.2-10.2 [facility] Comment on above: Performed By: #### C BC, BMP ####[facility] [place] [address] [facility] Chloride [Moles/Vol] 109 mmol/L Normal 95-114 [facility] Comment on above: Performed By: #### C BC, BMP ####[facility] [place] [address] [facility] CO2 [Moles/Vol] 21.9 mmol/L Low 22.0-30.0 [facility] Comment on above: Performed By: #### C BC, BMP ####[facility] [address] [place] [address] [facility] Creatinine [Mass/Vol] 6.60 mg/dL Significan t change up 0.64-1.27 [facility] Comment on above: Performed By: #### C BC, BMP ####[place] [address] [place] [address] [facility] Creatinine Clr Calc Pharmacy 11.49 [facility] Comment on above: Result Comment: PERF ORMED BY: [facility] [address] [place] [id number] PATHOLOGIST DRAFTER [employer]IE[employer] DESIGN DIANDRA LACY M.D. Performed By: #### C BC, BMP ####[address] [place] [address] [facility] Estimated GFR ( Yana 10 [facility] Comment on above: Result Comment: GFR estimated reference range: According to KDOQI guidelines, <60 ml/min/1.73m2 is sufficient to diagnose a patient with chronic kidney disease. Performed By: #### C BC, BMP ####[facility] [place] [address] [facility] Estimated GFR (Non- Am 8 [facility] Comment on above: Performed By: #### C BC, BMP ####[address] [place] [address] [facility] Glucose [Mass/Vol] 140 mg/dL High 70-100 [facility] Comment on above: Result Comment: [place] Glucose Reference Range is dependent on time and content of last meal. Glucose of more than 200 mg/dL in a nonstressed, ambulatory subject supports the diagnosis of Diabetes Mellitus. ADA recommended reference range Performed By: #### C BC, BMP ####[facility] [place] [address] [facility] Potassium [Moles/Vol] 3.9 mmol/L Normal 3.5-5.1 [facility] Comment on above: Performed By: #### C BC, BMP ####[address] [place] [address] [facility] Sodium [Moles/Vol] 140 mmol/L Normal 136-146 [facility] Comment on above: Performed By: #### C BC, BMP ####[place] [address] [place] [id number] [facility] Urea nitrogen [Mass/Vol] 61 mg/dL High 9- [facility] Comment on above: Performed By: #### C BC, BMP ####[place] [id number] [place] Basophils Auto (Bld) [#/Vol] Ordered By: Hiral Interiano on 08-14-2022 Basophils (Bld) [#/Vol] 0.0 10*3/uL 0.0-0.2 [facility] Basophils/100 WBC Auto (Bld) Ordered By: Hiral Interiano on 08-14-2022 Basophils/100 WBC (Bld) 0.2 % . [facility] Complete Blood Count Auto Di ffon 08-14-2022 Basophils (Bld) [#/Vol] 0.0 10*3/uL Normal 0.0-0.2 [facility] Comment on above: Result Comment: PERF ORMED BY: [facility] [address] [place] [id number] PATHOLOGIST DRAFTER CHIE[employer] DESIGN DIANDRA LACY M.D. Performed By: #### C BC, BMP ####[place] [address] [place] [id number] [facility] Basophils/100 WBC (Bld) 0.2 % Normal . [facility] Comment on above: Performed By: #### C BC, BMP ####[facility] Eosinophils (Bld) [#/Vol] 0.1 10*3/uL Normal 0.0-0.45 [facility] Comment on above: Performed By: #### C RUDOLPH, BMP ####[address] Eosinophils/100 WBC (Bld) 1.0 % Normal . [facility] Comment on above: Performed By: #### C BC, BMP ####[address] Erythrocyte distribution width (RBC) [Ratio] 13.5 % Normal 12.0-14.8 [facility] Comment on above: Performed By: #### C RUDOLPH, BMP ####[address] Hematocrit (Bld) [Volume fraction] 35.4 % Low 38.8-50.0 [facility] Comment on above: Performed By: #### C RUDOLPH, BMP ####[address] Hemoglobin (Bld) [Mass/Vol] 12.0 g/dL Low 13.0-17.0 [facility] Comment on above: Performed By: #### C RUDOLPH, BMP ####[address] Lymphocytes (Bld) [#/Vol] 0.6 10*3/uL Low 1.00-4.8 [facility] Comment on above: Performed By: #### C BC, BMP ####[address] Lymphocytes/100 WBC (Bld) 7.8 % Normal . [facility] Comment on above: Performed By: #### C BC, BMP ####[address] MCH (RBC) [Entitic mass] 33.0 pg Normal 27.5-35.2 [facility] Comment on above: Performed By: #### C BC, BMP ####[address] MCV (RBC) [Entitic vol] 97.3 fL Normal 83.5-101 [facility] Comment on above: Performed By: #### C RUDOLPH, BMP ####[address] Mean Corpuscular HGB Conc 33.9 g/dL Normal 32.5-35.6 [facility] Comment on above: Performed By: #### C RUDOLPH, BMP ####[address] Monocytes (Bld) [#/Vol] 0.8 10*3/uL Normal 0.0-0.8 [facility] Comment on above: Performed By: #### C RUDOLPH, BMP ####[address] Monocytes/100 WBC (Bld) 11.4 % Normal . [facility] Comment on above: Performed By: #### C RUDOLPH, BMP ####[address] Neutrophils (Bld) [#/Vol] 5.9 10*3/uL Normal 1.8-7.7 [facility] Comment on above: Performed By: #### C RUDOLPH, BMP ####[address] Neutrophils/100 WBC (Bld) 79.6 % Normal . [facility] Comment on above: Performed By: #### C RUDOLPH, BMP ####[address] NRBC% 0.1 /100{WBC} Normal 0-0.5 [facility] Comment on above: Performed By: #### C RUDOLPH, BMP ####[place] [id number] [facility] Platelet mean volume (Bld) [Entitic vol] 8.4 fL Normal 6.6-10.1 [facility] Comment on above: Performed By: #### C RUDOLPH, BMP ####[address] [place] [address] [place] Platelets (Bld) [#/Vol] 121 10*3/uL Low 150-450 [facility] Comment on above: Performed By: #### C BC, BMP ####[facility] RBC (Bld) [#/Vol] 3.64 10*6/uL Low 3.90-5.60 [facility] Comment on above: Performed By: #### C BC, BMP ####[facility] WBC (Bld) [#/Vol] 7.4 10*3/uL Normal 4.1-10.5 [facility] Comment on above: Performed By: #### C RUDOLPH, BMP ####[place] [address] Eosinophils Auto (Bld) [#/Vo l]Ordered By: Hiral Interiano on 08-14-2022 Eosinophils (Bld) [#/Vol] 0.1 10*3/uL 0.0-0.45 [facility] Eosinophils/100 WBC Auto (Bl d)Ordered By: Hiral Interiano on 08-14-2022 Eosinophils/100 WBC (Bld) 1.0 % . [facility] Erythrocyte distribution wid th Auto (RBC) [Ratio]Ordered By: Hiral Interiano on 08-14-2022 Erythrocyte distribution width (RBC) [Ratio] 13.5 % 12.0-14.8 [facility] Glucose Poct Glucometerson 0 08-14-2022 Commemt1 Glu2: Cleaned Meter Normal [facility] Comment on above: Result Comment: PERF ORMED BY: [facility] [address] [place] [address] PATHOLOGIST DRAFTER [employer]IE[employer] DESIGN DIANDRA LACY M.D. Performed By: #### P T #### [facility] [address] Glucose [Mass/Vol] 140 mg/dL Normal [facility] Comment on above: Result Comment: [place] Glucose Reference Range is dependent on time and content of last meal. Glucose of more than 200 mg/dL in a nonstressed, ambulatory subject supports the diagnosis of Diabetes Mellitus. Performed By: #### P T #### [facility] [address] [place] [address] Glucose [Mass/Vol] 125 mg/dL Normal [facility] Comment on above: Result Comment: [place] Glucose Reference Range is dependent on time and content of last meal. Glucose of more than 200 mg/dL in a nonstressed, ambulatory subject supports the diagnosis of Diabetes Mellitus. PERFORMED BY: [place] [address] PATHOLOGIST DRAFTER [employer]IE[employer] DESIGN DIANDRA LACY M.D. Performed By: #### P T #### [facility] [address] [place] [address] Glucose [Mass/Vol] 140 mg/dL Normal [facility] Comment on above: Result Comment: [place] Glucose Reference Range is dependent on time and content of last meal. Glucose of more than 200 mg/dL in a nonstressed, ambulatory subject supports the diagnosis of Diabetes Mellitus. PERFORMED BY: [place] [address] PATHOLOGIST DRAFTER [employer]IE[employer] DESIGN DIANDRA LACY M.D. Performed By: #### G LULS ####Point of Care testing, Commemt1 Glu2: Cleaned Meter Normal [facility] Comment on above: Result Comment: PERF ORMED BY: [place] [address] PATHOLOGIST DRAFTER CHIE[employer] DESIGN DIANDRA LACY M.D. Performed By: #### G LULS ####Point of Care testing, Glucose [Mass/Vol] 175 mg/dL Normal [facility] Comment on above: Result Comment: [place] Glucose Reference Range is dependent on [...] Cocci 2+ Gram Negative Bacilli PERFORMED BY: [place] [address] PATHOLOGIST DRAFTER CHIE[employer] DESIGN DIANDRA LACY M.D. Normal [facility] Comment on above: Performed By: #### B MP #### [address] Hematocrit Auto (Bld) [Volum e fraction]Ordered By: Hiral Interiano on 08-14-2022 Hematocrit (Bld) [Volume fraction] 35.4 % 38.8-50.0 [facility] Hemoglobin [Mass/volume] in BloodOrdered By: Hiral Interiano on 08-14-2022 Hemoglobin (Bld) [Mass/Vol] 12.0 g/dL 13.0-17.0 [facility] Leukocytes [#/volume] correc ike for nucleated erythrocytes in Blood by Automated counOrdered By: Hiral Interiano on 08-14-2022 WBC corrected for nucl RBC Auto (Bld) [#/Vol] 7.4 10*3/uL 4.1-10.5 [facility] Lymphocytes Auto (Bld) [#/Vo l]Ordered By: Hiral Interiano on 08-14-2022 Lymphocytes (Bld) [#/Vol] 0.6 10*3/uL 1.00-4.8 [facility] Lymphocytes/100 WBC Auto (Bl d)Ordered By: Hiral Interiano on 08-14-2022 Lymphocytes/100 WBC (Bld) 7.8 % . [facility] MCH Auto (RBC) [Entitic mass ]Ordered By: Hiral Interiano on 08-14-2022 MCH (RBC) [Entitic mass] 33.0 pg 27.5-35.2 [facility] MCHC Auto (RBC) [Mass/Vol]Or dered By: Hiral Interiano on 08-14-2022 MCHC (RBC) [Mass/Vol] 33.9 g/dL 32.5-35.6 [facility] MCV Auto (RBC) [Entitic vol] Ordered By: Hiral Interiano on 08-14-2022 MCV (RBC) [Entitic vol] 97.3 fL 83.5-101 [facility] Monocytes Auto (Bld) [#/Vol] Ordered By: Hiral Interiano on 08-14-2022 Monocytes (Bld) [#/Vol] 0.8 10*3/uL 0.0-0.8 [facility] Monocytes/100 WBC Auto (Bld) Ordered By: Hiral Interiano on 08-14-2022 Monocytes/100 WBC (Bld) 11.4 % . [facility] Neutrophils Auto (Bld) [#/Vo l]Ordered By: Hiral Interiano on 08-14-2022 Neutrophils (Bld) [#/Vol] 5.9 10*3/uL 1.8-7.7 [facility] Neutrophils/100 WBC Auto (Bl d)Ordered By: Hiral Interiano on 08-14-2022 Neutrophils/100 WBC (Bld) 79.6 % . [facility] No Panel InformationOrdered By: Hiral Interiano on 08-14-2022 Bedside Glucose Comment Glu2: cleaned meter [facility] Nucleated erythrocytes [Pres ence] in Blood by Automated countOrdered By: Hiral Interiano on 08-14-2022 Nucleated RBC Auto Ql (Bld) 0.1 /100{WBC} 0-0.5 [facility] Platelet mean volume Auto (B ld) [Entitic vol]Ordered By: Hiral Interiano on 08-14-2022 Platelet mean volume (Bld) [Entitic vol] 8.4 fL 6.6-10.1 [facility] Platelets Auto (Bld) [#/Vol] Ordered By: Hiral Interiano on 08-14-2022 Platelets (Bld) [#/Vol] 121 10*3/uL 150-450 [facility] RBC Auto (Bld) [#/Vol]Ordere d By: Hiral Interiano on 08-14-2022 RBC (Bld) [#/Vol] 3.64 10*6/uL 3.90-5.60 [facility] WBC Auto (Bld) [#/Vol]Ordere d By: Hiral Interiano on 08-14-2022 WBC (Bld) [#/Vol] 7.4 10*3/uL 4.1-10.5 [facility] Albumin Levelon 08-13-2022 Albumin [Mass/Vol] 3.0 g/dL Low 3.2-5.5 [facility] Comment on above: Result Comment: PERF ORMED BY: [place] [address] PATHOLOGIST DRAFTER [employer]IE[employer] DESIGN DIANDRA LACY M.D. Performed By: #### B MP #### [address] Basic Metabolic Panelon 07-28 Anion gap [Moles/Vol] 18.4 mmol/L High 6.0-15.0 [facility] Comment on above: Order Comment: REDRA W Performed By: #### B MP #### [address] Calcium [Mass/Vol] 7.0 mg/dL Low 8.2-10.2 [facility] Comment on above: Order Comment: REDRA W Performed By: #### B MP #### [address] Chloride [Moles/Vol] 97 mmol/L Normal 95-114 [facility] Comment on above: Order Comment: REDRA W Performed By: #### B MP #### [facility] [address] [place] [address] CO2 [Moles/Vol] 24.5 mmol/L Normal 22.0-30.0 [facility] Comment on above: Order Comment: REDRA W Performed By: #### B MP #### [facility] [address] [place] [address] [place] Creatinine [Mass/Vol] 10.74 mg/dL Significan t change up 0.64-1.27 [facility] Comment on above: Order Comment: REDRA W Performed By: #### B MP #### [facility] [address] [place] [address] [place] Creatinine Clr Calc Pharmacy 7.06 [facility] Comment on above: Order Comment: REDRA W Result Comment: PERF ORMED BY: [place] [address] PATHOLOGIST DRAFTER [employer]IE[employer] DESIGN DIANDRA LACY M.D. Performed By: #### B MP #### [place] [address] [place] Estimated GFR ( Yana 6 [facility] Comment on above: Order Comment: REDRA W Result Comment: GFR estimated reference range: According to KDOQI guidelines, <60 ml/min/1.73m2 is sufficient to diagnose a patient with chronic kidney disease. Performed By: #### B MP #### [place] [address] [place] Estimated GFR (Non- Am 5 [facility] Comment on above: Order Comment: REDRA W Performed By: #### B MP #### [address] Glucose [Mass/Vol] 85 mg/dL Normal 70-100 [facility] Comment on above: Order Comment: REDRA W Result Comment: [place] Glucose Reference Range is dependent on time and content of last meal. Glucose of more than 200 mg/dL in a nonstressed, ambulatory subject supports the diagnosis of Diabetes Mellitus. ADA recommended reference range Performed By: #### B MP #### [place] [address] [place] Potassium [Moles/Vol] 4.9 mmol/L Normal 3.5-5.1 [facility] Comment on above: Order Comment: REDRA W Performed By: #### B MP #### [facility] [address] [place], [place] [id number] [place] Sodium [Moles/Vol] 135 mmol/L Low 136-146 [facility] Comment on above: Order Comment: REDRA W Performed By: #### B MP #### [place] [address] [place] Urea nitrogen [Mass/Vol] 72 mg/dL Significant change up 03-19 [facility] Comment on above: Order Comment: REDRA W Performed By: #### B MP #### [address] Body fluid albumin measureme nt (mass/volume)Ordered By: Alicia Perea on 08-13-2022 Albumin (Body fld) [Mass/Vol] 3.0 g/dL 3.2-5.5 [facility] Complete Blood Count Auto Di ffon 08-13-2022 Basophils (Bld) [#/Vol] 0.0 10*3/uL Normal 0.0-0.2 [facility] Comment on above: Result Comment: PERF ORMED BY: [place] [address] PATHOLOGIST DRAFTER [employer]IE[employer] DESIGN DIANDRA LACY M.D. Performed By: #### C BC #### [address] Basophils/100 WBC (Bld) 0.5 % Normal . [facility] Comment on above: Performed By: #### C BC #### [address] Eosinophils (Bld) [#/Vol] 0.1 10*3/uL Normal 0.0-0.45 [facility] Comment on above: Performed By: #### C BC #### [address] Eosinophils/100 WBC (Bld) 0.9 % Normal . [facility] Comment on above: Performed By: #### C BC #### [address] Erythrocyte distribution width (RBC) [Ratio] 13.7 % Normal 12.0-14.8 [facility] Comment on above: Performed By: #### C BC #### [address] Hematocrit (Bld) [Volume fraction] 34.2 % Low 38.8-50.0 [facility] Comment on above: Performed By: #### C BC #### [address] Hemoglobin (Bld) [Mass/Vol] 11.6 g/dL Low 13.0-17.0 [facility] Comment on above: Performed By: #### C BC #### [address] Lymphocytes (Bld) [#/Vol] 0.9 10*3/uL Low 1.00-4.8 [facility] Comment on above: Performed By: #### C BC #### [address] Lymphocytes/100 WBC (Bld) 9.6 % Normal . [facility] Comment on above: Performed By: #### C BC #### [address] MCH (RBC) [Entitic mass] 32.9 pg Normal 27.5-35.2 [facility] Comment on above: Performed By: #### C BC #### [address] MCV (RBC) [Entitic vol] 96.5 fL Normal 83.5-101 [facility] Comment on above: Performed By: #### C BC #### [address] Mean Corpuscular HGB Conc 34.1 g/dL Normal 32.5-35.6 [facility] Comment on above: Performed By: #### C BC #### [address] Monocytes (Bld) [#/Vol] 1.0 10*3/uL High 0.0-0.8 [facility] Comment on above: Performed By: #### C BC #### [address] Monocytes/100 WBC (Bld) 9.8 % Normal . [facility] Comment on above: Performed By: #### C BC #### [address] Neutrophils (Bld) [#/Vol] 7.8 10*3/uL High 1.8-7.7 [facility] Comment on above: Performed By: #### C BC #### [facility] [address] [place] [address] [place] Neutrophils/100 WBC (Bld) 79.2 % Normal . [facility] Comment on above: Performed By: #### C BC #### [facility] [address] NRBC% 0.1 /100{WBC} Normal 0-0.5 [facility] Comment on above: Performed By: #### C BC #### [facility] [address] Platelet mean volume (Bld) [Entitic vol] 8.7 fL Normal 6.6-10.1 [facility] Comment on above: Performed By: #### C BC #### [facility] [address] [place] [address] [place] Platelets (Bld) [#/Vol] 129 10*3/uL Low 150-450 [facility] Comment on above: Performed By: #### C BC #### [facility] [address] [place] [address] [place] RBC (Bld) [#/Vol] 3.54 10*6/uL Low 3.90-5.60 [facility] Comment on above: Performed By: #### C BC #### [facility] [address] [place] [address] [place] WBC (Bld) [#/Vol] 9.9 10*3/uL Normal 4.1-10.5 [facility] Comment on above: Performed By: #### C BC #### [facility] [address] [place] [address] [place] urethrocystogram retroon 08-13-2022 [place] urethrocystogram retro [facility] [place] [address] [place] [address] Fluoroscopy Report Signed Patient: Victorino Smyth MR#: [id number] : 1940 Acct:[id number] Age/Sex: 82 / M ADM Date: 08/11/22 Loc: 4N Room: 6C1071-4 Type: ADM IN Attending Dr: Hiral Interiano [...] Perez Jr., D.OManohar08/13/2022 2:25 PM Dictation Location: [place] [address] Transcribed By: [facility] 08/13/22 142 Dictated By: Ifeanyi Perez Jr, DO 08/13/22 142 Signed By: 08/13/22 142 [facility] Glucose Poct Glucometerson 0 08-13-2022 Commemt1 Glu2: Cleaned Meter [facility] Comment on above: Result Comment: PERF ORMED BY: [place] [address] PATHOLOGIST [employer]RAFTER [employer] DIANDRA LACY M.D. Performed By: #### B MP #### [facility] [address] [place] [address] Glucose [Mass/Vol] 91 mg/dL [facility] Comment on above: Result Comment: [facility] Glucose Reference Range is dependent on time and content of last meal. Glucose of more than 200 mg/dL in a nonstressed, ambulatory subject supports the diagnosis of Diabetes Mellitus. Performed By: #### B MP #### [facility] [address] [place] [address] Commemt1 Glu2: Cleaned Meter [facility] Comment on above: Result Comment: PERF ORMED BY: [place] [address] PATHOLOGIST [employer]RAFTER [employer] DIANDRA LACY M.D. Performed By: #### G LULS ####Point of Care testing, Glucose [Mass/Vol] 94 mg/dL Normal [facility] Comment on above: Result Comment: [facility] Glucose Reference Range is dependent on time and content of last meal. Glucose of more than 200 mg/dL in a nonstressed, ambulatory subject supports the diagnosis of Diabetes Mellitus. Performed By: #### G JOHANNE ####Point of Care testing, Operative Reporton Operative Report [id number]#[id number]:127 Normal [facility] A1C with Estimated Average G marianna 08-12-2022 Glucose [Mass/Vol] 212 mg/dL Normal [facility] Comment on above: Result Comment: PERF ORMED BY: [facility] [address] [place] [address] PATHOLOGIST [employer] DIANDRA LACY M.D. Performed By: #### B MP #### [facility] [address] HbA1c (Bld) [Mass fraction] 9.0 % High 4.3-5.6 [facility] Comment on above: Result Comment: Incr eased risk for diabetes: 5.7 - 6.4 diabetes: >6.4 glycemic control for adults with diabetes: <7.0 Performed By: #### B MP #### [facility] [address] Basic Metabolic Panelon 07-28 Anion gap [Moles/Vol] 20.6 mmol/L High 6.0-15.0 [facility] Comment on above: Performed By: #### B MP, CBC ####[facility] Calcium [Mass/Vol] 7.1 mg/dL Low 8.2-10.2 [facility] Comment on above: Performed By: #### B MP, CBC ####[facility] [place] [id number] [place] Chloride [Moles/Vol] 104 mmol/L Normal 95-114 [facility] Comment on above: Performed By: #### B MP, CBC ####[facility] [place] [address] [place] CO2 [Moles/Vol] 20.2 mmol/L Low 22.0-30.0 [facility] Comment on above: Performed By: #### B MP, CBC ####[place] [address] [place] [address] [facility] Creatinine [Mass/Vol] 15.50 mg/dL Significan t change up 0.64-1.27 [facility] Comment on above: Performed By: #### B MP, CBC ####[place] [address] [place] [address] [place] Creatinine Clr Calc Pharmacy 4.90 [facility] Comment on above: Result Comment: PERF ORMED BY: [facility] [address] [facility] [place] [address] PATHOLOGIST [employer] DIANDRA LACY M.D. Performed By: #### B MP, CBC ####[address] [address] [facility] Estimated GFR ( Yana 4 [facility] Comment on above: Result Comment: GFR estimated reference range: According to KDOQI guidelines, <60 ml/min/1.73m2 is sufficient to diagnose a patient with chronic kidney disease. Performed By: #### B MP, CBC ####[address] [address] [facility] Estimated GFR (Non- Am 3 [facility] Comment on above: Performed By: #### B MP, CBC ####[facility] [place] [id number] [facility] Glucose [Mass/Vol] 100 mg/dL Significant change down 70-100 [facility] Comment on above: Result Comment: [place] Glucose Reference Range is dependent on time and content of last meal. Glucose of more than 200 mg/dL in a nonstressed, ambulatory subject supports the diagnosis of Diabetes Mellitus. ADA recommended reference range Performed By: #### B MP, CBC ####[address] [address] [place] Potassium [Moles/Vol] 4.8 mmol/L Significan t change down 3.5-5.1 [facility] Comment on above: Performed By: #### B MP, CBC ####[address] Sodium [Moles/Vol] 140 mmol/L Significant change down 136-146 [facility] Comment on above: Performed By: #### B MP, CBC ####[address] Urea nitrogen [Mass/Vol] 133 mg/dL Significant change up - [facility] Comment on above: Performed By: #### B MP, CBC ####[address] Complete Blood Count Auto Di ffon 08-12-2022 Basophils (Bld) [#/Vol] 0.0 10*3/uL Normal 0.0-0.2 [facility] Comment on above: Result Comment: PERF ORMED BY: [facility] [address] [place] [address] PATHOLOGIST [employer] DIANDRA LACY M.D. Performed By: #### B MP, CBC ####[address] Basophils/100 WBC (Bld) 0.2 % Normal . [facility] Comment on above: Performed By: #### B MP, CBC ####[address] Eosinophils (Bld) [#/Vol] 0.0 10*3/uL Normal 0.0-0.45 [facility] Comment on above: Performed By: #### B MP, CBC ####[address] Eosinophils/100 WBC (Bld) 0.0 % Normal . [facility] Comment on above: Performed By: #### B MP, CBC ####[address] Erythrocyte distribution width (RBC) [Ratio] 13.6 % Normal 12.0-14.8 [facility] Comment on above: Performed By: #### B MP, CBC ####[address] Hematocrit (Bld) [Volume fraction] 33.6 % Low 38.8-50.0 [facility] Comment on above: Performed By: #### B MP, CBC ####[address] Hemoglobin (Bld) [Mass/Vol] 11.5 g/dL Low 13.0-17.0 [facility] Comment on above: Performed By: #### B MP, CBC ####[address] Lymphocytes (Bld) [#/Vol] 0.6 10*3/uL Low 1.00-4.8 [facility] Comment on above: Performed By: #### B MP, CBC ####[address] Lymphocytes/100 WBC (Bld) 4.4 % Normal . [facility] Comment on above: Performed By: #### B MP, CBC ####[address] MCH (RBC) [Entitic mass] 32.9 pg Normal 27.5-35.2 [facility] Comment on above: Performed By: #### B MP, CBC ####[address] MCV (RBC) [Entitic vol] 95.9 fL Normal 83.5-101 [facility] Comment on above: Performed By: #### B MP, CBC ####[address] Mean Corpuscular HGB Conc 34.3 g/dL Normal 32.5-35.6 [facility] Comment on above: Performed By: #### B MP, CBC ####[address] Monocytes (Bld) [#/Vol] 1.0 10*3/uL High 0.0-0.8 [facility] Comment on above: Performed By: #### B MP, CBC ####[address] Monocytes/100 WBC (Bld) 7.4 % Normal . [facility] Comment on above: Performed By: #### B MP, CBC ####[address] Neutrophils (Bld) [#/Vol] 11.8 10*3/uL High 1.8-7.7 [facility] Comment on above: Performed By: #### B MP, CBC ####[address] Neutrophils/100 WBC (Bld) 88.0 % Normal . [facility] Comment on above: Performed By: #### B MP, CBC ####[address] NRBC% 0.0 /100{WBC} Normal 0-0.5 [facility] Comment on above: Performed By: #### B MP, CBC ####[address] Platelet mean volume (Bld) [Entitic vol] 8.3 fL Normal 6.6-10.1 [facility] Comment on above: Performed By: #### B MP, CBC ####[address] Platelets (Bld) [#/Vol] 162 10*3/uL Normal 150-450 [facility] Comment on above: Performed By: #### B MP, CBC ####[address] RBC (Bld) [#/Vol] 3.51 10*6/uL Low 3.90-5.60 [facility] Comment on above: Performed By: #### B MP, CBC ####[address] WBC (Bld) [#/Vol] 13.4 10*3/uL High 4.1-10.5 [facility] Comment on above: Performed By: #### B MP, CBC ####[facility] [address] [place] [id number] [facility] Consultation Noteon 08-12-19 Consultation Note [id number]#[id number]:127 Normal [facility] Glucose Poct Glucometerson 0 08-12-2022 Glucose [Mass/Vol] 114 mg/dL Normal [facility] Comment on above: Result Comment: [facility] Glucose Reference Range is dependent on time and content of last meal. Glucose of more than 200 mg/dL in a nonstressed, ambulatory subject supports the diagnosis of Diabetes Mellitus. PERFORMED BY: [place] [address] PATHOLOGIST [employer]RAFTER [employer] DIANDRA LACY M.D. Performed By: #### G JOHANNE #### Point of Care testing , Glucose [Mass/Vol] 111 mg/dL Normal [facility] Comment on above: Result Comment: [facility] Glucose Reference Range is dependent on time and content of last meal. Glucose of more than 200 mg/dL in a nonstressed, ambulatory subject supports the diagnosis of Diabetes Mellitus. PERFORMED BY: [facility] [address] [place] [address] PATHOLOGIST DRAF[employer] DIANDRA LACY M.D. Performed By: #### G LULS #### Point of Care testing , Glucose [Mass/Vol] 96 mg/dL Normal [facility] Comment on above: Result Comment: [facility] Glucose Reference Range is dependent on time and content of last meal. Glucose of more than 200 mg/dL in a nonstressed, ambulatory subject supports the diagnosis of Diabetes Mellitus. PERFORMED BY: [place] [address] PATHOLOGIST DRAFTER [employer] DIANDRA LACY M.D. Performed By: #### B MP #### [facility] [address] Glucose [Mass/Vol] 91 mg/dL Normal [facility] Comment on above: Result Comment: [place] [facility] Glucose Reference Range is dependent on time and content of last meal. Glucose of more than 200 mg/dL in a nonstressed, ambulatory subject supports the diagnosis of Diabetes Mellitus. PERFORMED BY: [place] [address] PATHOLOGIST DRAFTER [employer] DIANDRA LACY M.D. Performed By: #### B MP #### [facility] [address] [place] [address] Glucose [Mass/Vol] 93 mg/dL Normal [facility] Comment on above: Result Comment: [place] Glucose Reference Range is dependent on time and content of last meal. Glucose of more than 200 mg/dL in a nonstressed, ambulatory subject supports the diagnosis of Diabetes Mellitus. PERFORMED BY: [place] [address] PATHOLOGIST DRAFTER [employer] DIANDRA LACY M.D. Performed By: #### P T #### [facility] [address] [place] [address] Commemt1 Glu2: Cleaned Meter Normal [facility] Comment on above: Result Comment: PERF ORMED BY: [place] [address] PATHOLOGIST DRAFTER [employer] DIANDRA LACY M.D. Performed By: #### G LULS #### Point of Care testing , Glucose [Mass/Vol] 87 mg/dL Normal [facility] Comment on above: Result Comment: [place] Glucose Reference Range is dependent on time [...] from glycated hemoglobin (Bld) [Mass/Vol] 212 mg/dL [facility] Hemoglobin A1c percentageOrd ered By: Hiral Interiano on 08-12-2022 HbA1c (Bld) [Mass fraction] 9.0 % 4.3-5.6 [facility] Comment on above: Increased risk for d iabetes: 5.7 - 6.4diabetes: >6.4glycemic control for adults with diabetes: <7.0 Anisocytosis LM Ql (Bld)Orde red By: Hiral Interiano on 08-11-2022 Anisocytosis Ql (Bld) Slight [facility] Band form neutrophils/100 WB C Manual cnt (Bld)Ordered By: Hiral Interiano on 08-11-2022 Band form neutrophils/100 WBC (Bld) 1 % 0-5 [facility] Basic Metabolic Panelon 07-28 Anion gap [Moles/Vol] 30.1 mmol/L High 6.0-15.0 [facility] Comment on above: Performed By: #### B MP #### [facility] [address] Calcium [Mass/Vol] 7.2 mg/dL Low 8.2-10.2 [facility] Comment on above: Performed By: #### B MP #### [facility] [address] Chloride [Moles/Vol] 99 mmol/L Normal 95-114 [facility] Comment on above: Performed By: #### B MP #### [facility] [address] [place] [id number] [facility] CO2 [Moles/Vol] 9.3 mmol/L Low 22.0-30.0 [facility] Comment on above: Performed By: #### B MP #### [facility] [address] [place] [address] [place] Creatinine Clr Calc Pharmacy 4.24 Normal [facility] Comment on above: Result Comment: PERF ORMED BY: [place] [address] PATHOLOGIST DRAFTER [employer] DIANDRA LACY M.D. Performed By: #### B MP #### [facility] [address] [place] [address] [place] Estimated GFR ( Yana 3 [facility] Comment on above: Result Comment: GFR estimated reference range: According to KDOQI guidelines, <60 ml/min/1.73m2 is sufficient to diagnose a patient with chronic kidney disease. Performed By: #### B MP #### [facility] [address] Estimated GFR (Non- Am 3 [facility] Comment on above: Performed By: #### B MP #### [facility] [address] Glucose [Mass/Vol] 507 mg/dL Off scale high 70-100 [facility] Comment on above: Result Comment: Resu lts called at 1409 on 08/11/22 Random Glucose Reference Range is dependent on time and content of last meal. Glucose of more than 200 mg/dL in a nonstressed, ambulatory subject supports the diagnosis of Diabetes Mellitus. ADA recommended reference range Performed By: #### B MP #### [address] Potassium [Moles/Vol] 7.4 mmol/L Off scale high 3.5-5.1 [facility] Comment on above: Result Comment: Resu lts called at 1409 on 08/11/22 Performed By: #### B MP #### [address] Sodium [Moles/Vol] 131 mmol/L Low 136-146 [facility] Comment on above: Performed By: #### B MP #### [facility] [address] [place] [address] [place] Urea nitrogen [Mass/Vol] 163 mg/dL High 03-19 [facility] Comment on above: Performed By: #### B MP #### [place] [address] [place] Beta Hydroxybuterateon 08-11 Beta Hydroxybuterate 2.40 mmol/L High 0.05-0.27 [facility] Comment on above: Result Comment: PERF ORMED BY: [facility] [address] [place] [address] PATHOLOGIST DRAFTER [employer] DIANDRA LACY M.D. Performed By: #### B MP #### [facility] [address] Beta-hydroxybutyric acid adina surementOrdered By: Alicia Perea on 08-11-2022 Beta hydroxybutyrate [Mass/Vol] 2.40 mmol/L 0.05-0.27 [facility] Amie cells [Presence] in Blo od by Light microscopyOrdered By: Hiral Interiano on 08-11-2022 Amie cells LM Ql (Bld) Slight [facility] CARDIAC GUIDO 3-6on 3 CK [Catalytic activity/Vol] 162 U/L Normal 39-308 [facility] Comment on above: Performed By: #### T SH, LIPID, T4, FT3, CMP #### [facility] [address] [place] [address] [address] Alicia Patel CK.MB [Mass/Vol] 5.52 ng/mL Critically high <=3.60 [facility] Comment on above: Performed By: #### T SH, LIPID, T4, FT3, CMP #### [facility] [address] [place] [address] [address] Alicia Patel HSTROP 19.7 pg/mL Normal 4.0-76.1 [facility] Comment on above: Result Comment: CUT- OFF POINTS HAVE BEEN ESTABLISHED BASED ON THE FOURTH UNIVERSAL DEFINITIONS OF MYOCARDIAL INFARCTION. THE UPPER REFERENCE LIMIT (URL) OF TROPONIN, DEFINED THE 99TH PERCENTILE OF cTnI DISTRIBUTION IN A REFERENCE POPULATION, HAS BEEN CONFIRMED THE DECISION THRESHOLD FOR [place] DIAGNOSIS. Performed By: #### T SH, LIPID, T4, FT3, CMP #### [facility] [address] [place] [address] [address] Alicia Patel CK [Catalytic activity/Vol] 150 U/L Normal 39-308 [facility] Comment on above: Performed By: #### T SH, LIPID, T4, FT3, CMP #### [facility] [address] [address] [address] Alicia Patel CK.MB [Mass/Vol] 4.99 ng/mL Critically high <=3.60 [facility] Comment on above: Performed By: #### T SH, LIPID, T4, FT3, CMP #### [facility] [address] [address] [address] Alicia Patel HSTROP 16.9 pg/mL Normal 4.0-76.1 [facility] Comment on above: Result Comment: CUT- OFF POINTS HAVE BEEN ESTABLISHED BASED ON THE FOURTH UNIVERSAL DEFINITIONS OF MYOCARDIAL INFARCTION. THE UPPER REFERENCE LIMIT (URL) OF TROPONIN, DEFINED THE 99TH PERCENTILE OF cTnI DISTRIBUTION IN A REFERENCE POPULATION, HAS BEEN CONFIRMED THE DECISION THRESHOLD FOR WA DIAGNOSIS. Performed By: #### T SH, LIPID, T4, FT3, CMP #### [facility] [address] [place] [address] Dr. Alicia Patel CARDIAC GUIDO ADMITon 023 CK [Catalytic activity/Vol] 128 U/L Normal 39-308 [facility] Comment on above: Performed By: #### T SH, LIPID, T4, FT3, CMP #### [facility] [address] [place] [address] [address] Alicia Patel CK.MB [Mass/Vol] 4.95 ng/mL Critically high <=3.60 [facility] Comment on above: Performed By: #### T SH, LIPID, T4, FT3, CMP #### [facility] [address] [place] [address] Dr. Alicia Patel HSTROP 18.0 pg/mL Normal 4.0-76.1 [facility] Comment on above: Result Comment: CUT- OFF POINTS HAVE BEEN ESTABLISHED BASED ON THE FOURTH UNIVERSAL DEFINITIONS OF MYOCARDIAL INFARCTION. THE UPPER REFERENCE LIMIT (URL) OF TROPONIN, DEFINED THE 99TH PERCENTILE OF cTnI DISTRIBUTION IN A REFERENCE POPULATION, HAS BEEN CONFIRMED THE DECISION THRESHOLD FOR [place] DIAGNOSIS. Performed By: #### T SH, LIPID, T4, FT3, CMP #### [facility] [address] [place] [address] Dr. Alicia Patel LIZZY 188 ng/mL Critically high 16-96 [facility] Comment on above: Performed By: #### T SH, LIPID, T4, FT3, CMP #### [facility] [address] [place] [address] Dr. Alicia Patel CBC AUTO DIFFon 08-11-2022 BASO # 0.0 103/ul Normal 0.0-0.1 [facility] Comment on above: Performed By: #### T SH, LIPID, T4, FT3, CMP #### [facility] [address] [place] [address] Dr. Alicia Patel Basophils/100 WBC (Bld) 0.3 % Normal 0.2-2.0 [facility] Comment on above: Performed By: #### T SH, LIPID, T4, FT3, CMP #### [facility] [address] [place] [address] Dr. Alicia Patel EO # 0.2 103/ul Normal 0.0-0.7 [facility] Comment on above: Performed By: #### T SH, LIPID, T4, FT3, CMP #### [facility] [address] [place] [address] Dr. Alicia Patel Eosinophils/100 WBC (Bld) 1.8 % Normal 0.9-7.0 [facility] Comment on above: Performed By: #### T SH, LIPID, T4, FT3, CMP #### [facility] [address] [place] [address] Dr. Alicia Patel Erythrocyte distribution width (RBC) [Ratio] 13.2 % Normal 11.0-15.0 [facility] Comment on above: Performed By: #### T SH, LIPID, T4, FT3, CMP #### [facility] [address] [place] [address] Dr. Alicia Patel Hematocrit (Bld) [Volume fraction] 36.0 % Critically low 42.0-54.0 [facility] Comment on above: Performed By: #### T SH, LIPID, T4, FT3, CMP #### [facility] [address] [place] [address] Dr. Alicia Patel Hemoglobin (Bld) [Mass/Vol] 12.0 g/dL Critically low 14.0-18.0 [facility] Comment on above: Performed By: #### T SH, LIPID, T4, FT3, CMP #### [facility] [address] [place] [address] Dr. Alicia Patel IG # 0.34 10e3/ul Critically high 0.00-0.03 [facility] Comment on above: Performed By: #### T SH, LIPID, T4, FT3, CMP #### [facility] [address] [place] [address] Dr. Alicia Patel IG % 3.8 % Critically high 0.0-0.5 [facility] Comment on above: Performed By: #### T SH, LIPID, T4, FT3, CMP #### [facility] [address] [place] [address] Dr. Alicia Patel LYMPH # 0.5 103/ul Critically low 1.2-3.8 [facility] Comment on above: Performed By: #### T SH, LIPID, T4, FT3, CMP #### [facility] [address] [place] [address] Dr. Alicia Patel Lymphocytes/100 WBC (Bld) 5.9 % Critically low 20.5-60.0 [facility] Comment on above: Performed By: #### T SH, LIPID, T4, FT3, CMP #### [facility] [address] [place] [address] Dr. Alicia Patel MANUAL DIFF REQ NO Normal [facility] Comment on above: Performed By: #### T SH, LIPID, T4, FT3, CMP #### [facility] [address] [place] [address] Dr. Alicia Patel MCH (RBC) [Entitic mass] 32.3 pg Normal 25.9-34.0 [facility] Comment on above: Performed By: #### T SH, LIPID, T4, FT3, CMP #### [facility] [address] [place] [address] Dr. Alicia Patel MCHC (RBC) [Mass/Vol] 33.3 g/dL Normal 29.9-35.2 [facility] Comment on above: Performed By: #### T SH, LIPID, T4, FT3, CMP #### [facility] [address] [place] [address] Dr. Alicia Patel MCV (RBC) [Entitic vol] 97.0 fL Critically high 80.0-94.0 [facility] Comment on above: Performed By: #### T SH, LIPID, T4, FT3, CMP #### [facility] [address] [place] [address] Dr. Alicia Patel MONO # 0.5 103/ul Normal 0.3-0.8 [facility] Comment on above: Performed By: #### T SH, LIPID, T4, FT3, CMP #### [facility] [address] [place] [address] Dr. Alicia Patel Monocytes/100 WBC (Bld) 5.5 % Normal 1.7-12.0 [facility] Comment on above: Performed By: #### T SH, LIPID, T4, FT3, CMP #### [facility] [address] [place] [address] Dr. Alicia Patel NEUT # 7.5 103/ul Critically high 1.4-6.5 [facility] Comment on above: Performed By: #### T SH, LIPID, T4, FT3, CMP #### [facility] [address] [place] [address] Dr. Alicia Patel Neutrophils/100 WBC (Bld) 82.7 % Critically high 43.0-75.0 [facility] Comment on above: Performed By: #### T SH, LIPID, T4, FT3, CMP #### [facility] [address] [place] [address] Dr. Alicia Patel Platelet mean volume (Bld) [Entitic vol] 10.2 fL Normal 9.5-13.5 [facility] Comment on above: Performed By: #### T SH, LIPID, T4, FT3, CMP #### [facility] [address] [place] [address] Dr. Alicia Patel PLT 191 103/ul Normal 150-450 [facility] Comment on above: Performed By: #### T SH, LIPID, T4, FT3, CMP #### [facility] [address] [place], [place] [address] Dr. Alicia Patel RBC 3.71 106/ul Critically low 4.70-6.10 [facility] Comment on above: Performed By: #### T SH, LIPID, T4, FT3, CMP #### [facility] [address] [place], [place] [address] Dr. Alicia Patel WBC 9.0 103/ul Normal 4.0-11.0 [facility] Comment on above: Performed By: #### T SH, LIPID, T4, FT3, CMP #### [facility] [address] [place], [place] [address] ABD/PELVIS WO CONon [...] ILA GALLEGO Date: 2022-08-11 08:38 Normal [facility] Covid-19 PCR (CVDTBH)on 07-28 SARS-CoV-2 (COVID-19) RNA SAVANNAH+probe Ql (Unsp spec) Not detected Normal NOT DETECTED [facility] Comment on above: Result Comment: When diagnostic [...] for this test is supported by the Site Safety Manager of Health and Human Service's declaration that [...] T SH, LIPID, T4, FT3, CMP #### [facility] [address] [place] [address] [address] Alicia Patel Diff and CBCon 08-11-2022 Anisocytosis Ql (Bld) Slight Normal [facility] Comment on above: Performed By: #### P T #### [address] Band form neutrophils/100 WBC (Bld) 1 % Normal 0-5 [facility] Comment on above: Performed By: #### P T #### [address] Crenated RBC Slight Normal [facility] Comment on above: Performed By: #### P T #### [address] Erythrocyte distribution width (RBC) [Ratio] 13.8 % Normal 12.0-14.8 [facility] Comment on above: Performed By: #### P T #### [address] Hematocrit (Bld) [Volume fraction] 38.1 % Low 38.8-50.0 [facility] Comment on above: Performed By: #### P T #### [address] Hemoglobin (Bld) [Mass/Vol] 12.5 g/dL Low 13.0-17.0 [facility] Comment on above: Performed By: #### P T #### [address] Lymphocytes/100 WBC (Bld) 5 % Low 18-42 [facility] Comment on above: Performed By: #### P T #### [address] MCH (RBC) [Entitic mass] 32.5 pg Normal 27.5-35.2 [facility] Comment on above: Performed By: #### P T #### [address] MCV (RBC) [Entitic vol] 99.0 fL Normal 83.5-101 [facility] Comment on above: Performed By: #### P T #### [address] Mean Corpuscular HGB Conc 32.8 g/dL Normal 32.5-35.6 [facility] Comment on above: Performed By: #### P T #### [address] Microcytosis Slight Normal [facility] Comment on above: Performed By: #### P T #### [address] Monocytes/100 WBC (Bld) 1 % Low 2-11 [facility] Comment on above: Performed By: #### P T #### [address] Platelet Estimate Normal Normal Normal [facility] Comment on above: Performed By: #### P T #### [address] Platelet mean volume (Bld) [Entitic vol] 8.8 fL Normal 6.6-10.1 [facility] Comment on above: Performed By: #### P T #### [address] Platelet Morphology Normal Normal Normal [facility] Comment on above: Result Comment: PERF ORMED BY: [place] [address] PATHOLOGIST DRAFTER CHIE[employer] DESIGN DIANDRA LACY M.D. Performed By: #### P T #### [address] Platelets (Bld) [#/Vol] 203 10*3/uL Normal 150-450 [facility] Comment on above: Performed By: #### P T #### [address] Poikilocytosis Slight Normal [facility] Comment on above: Performed By: #### P T #### [address] RBC (Bld) [#/Vol] 3.85 10*6/uL Low 3.90-5.60 [facility] Comment on above: Performed By: #### P T #### [address] Segmented neutrophils/100 WBC (Bld) 94 % High 50-70 [facility] Comment on above: Performed By: #### P T #### [address] WBC (Bld) [#/Vol] 9.1 10*3/uL Normal 4.1-10.5 [facility] Comment on above: Performed By: #### P T #### [address] ECG 12 lead ECGon 08-11-2022 ECG 12 lead ECG [facility] [place] [address] [place] [address] Electrocardiograph Report Signed Patient: Victorino Smyth MR#: [id number] : 1940 Acct:[id number] Age/Sex: 82 / M ADM Date: 08/11/22 Loc: 4N Room: 6X3412-6 Type: ADM IN Attending Dr: Hiral Interiano [...] By Yogesh Cisneros DO 08/13 1820 Normal [facility] ECG 12 lead ECG [facility] [place] [address] Electrocardiograph Report Signed Patient: Victorino Smyth MR#: [id number] : 1940 Acct:[id number] Age/Sex: 82 / M ADM Date: 08/11/22 Loc: Room: [id number] Type: ADM IN Attending Dr: Hiral Interiano [...] When compared with ECG of 28-JUN-2019 20:47, DE interval has increased Confirmed by YOGESH CISNEROS DO ([id number]) on 08/11/2022 6:42:37 PM Referred By: Electronically Signed By:YOGESH CISNEROS DO Transcribed By: MUS Signed By Yogesh Cisneros DO 08/11 1842 Normal [facility] ER URINE PROFILEon 3 Bilirubin Ql (U) Negative Normal NEGATIVE [facility] Comment on above: Performed By: #### T SH, LIPID, T4, FT3, CMP #### [facility] [address] [place] [address] [address] Alicia Patel Clarity (U) CLEAR Normal CLEAR [facility] Comment on above: Performed By: #### T SH, LIPID, T4, FT3, CMP #### [facility] [address] [place] [address] [address] Alicia Patel Color (U) LT. YELLOW Normal YELLOW [facility] Comment on above: Performed By: #### T SH, LIPID, T4, FT3, CMP #### [facility] [address] [place] [address] Dr. Alicia Patel ERUROLAND A micrscopic examina tion will be performed if indicated. Normal [facility] Comment on above: Performed By: #### T SH, LIPID, T4, FT3, CMP #### [facility] [address] [place] [address] [address] Alicia Patel Glucose Ql (U) Negative Normal NEGATIVE [facility] Comment on above: Performed By: #### T SH, LIPID, T4, FT3, CMP #### [facility] [address] [place] [address] [address] Alicia Patel Hemoglobin Ql (U) SMALL Abnormal NEGATIVE [facility] Comment on above: Performed By: #### T SH, LIPID, T4, FT3, CMP #### [facility] [address] [place] [address] [address] Alicia Patel Ketones Ql (U) Negative Normal NEGATIVE [facility] Comment on above: Performed By: #### T SH, LIPID, T4, FT3, CMP #### [facility] [address] [place] [address] [address] Alicia Patel LEUKOCYTES Negative Normal NEGATIVE [facility] Comment on above: Performed By: #### T SH, LIPID, T4, FT3, CMP #### [facility] [address] [place] [address] [address] Alicia Patel Nitrite Ql (U) Negative Normal NEGATIVE [facility] Comment on above: Performed By: #### T SH, LIPID, T4, FT3, CMP #### [facility] [address] [address] [address] Alicia Patel pH (U) 6.0 [pH] Normal 5-9 [facility] Comment on above: Performed By: #### T SH, LIPID, T4, FT3, CMP #### [facility] [address] [place] [address] Dr. Alicia Patel Protein (U) [Mass/Vol] 100 mg/dL Abnormal NEGAT ОЛЕГ/ TRACE [facility] Comment on above: Performed By: #### T SH, LIPID, T4, FT3, CMP #### [facility] [address] [place] [address] Dr. Alicia Patel SPEC GRAVITY 1.015 Normal 1.005-<=1. 025 [facility] Comment on above: Performed By: #### T SH, LIPID, T4, FT3, CMP #### [facility] [address] [place] [address] Dr. Alicia Patel UR MICRO IND INDICATED Normal [facility] Comment on above: Performed By: #### T SH, LIPID, T4, FT3, CMP #### [facility] [address] [place] [address] Dr. Alicia Patel Urobilinogen Qn (U) 0.2 {Wil'U}/dL Normal 0.2 - 1. 0 [facility] Comment on above: Performed By: #### T SH, LIPID, T4, FT3, CMP #### [facility] [address] [place] [address] Dr. Alicia Patel Glucose Poct Glucometerson 0 08-11-2022 Glucose [Mass/Vol] 282 mg/dL Normal [facility] Comment on above: Result Comment: [place] Glucose Reference Range is dependent on time and content of last meal. Glucose of more than 200 mg/dL in a nonstressed, ambulatory subject supports the diagnosis of Diabetes Mellitus. PERFORMED BY: [address] [place] [address] PATHOLOGIST DRAFTER CHIEF DESIGN DIANDRA LACY M.D. Performed By: #### P T #### [address] Commemt1 Glu2: Cleaned Meter [facility] Comment on above: Result Comment: PERF ORMED BY: [address] [place] [address] PATHOLOGIST DRAFTER CHIE[employer] DESIGN DIANDRA LACY M.D. Performed By: #### G LULS ####Point of Care testing, Glucose [Mass/Vol] 253 mg/dL Normal [facility] Comment on above: Result Comment: [place] om Glucose Reference Range is dependent on time and content of last meal. Glucose of more than 200 mg/dL in a nonstressed, ambulatory subject supports the diagnosis of Diabetes Mellitus. Performed By: #### G LULS ####Point of Care testing, Commemt1 Glu2: Cleaned Meter [facility] Comment on above: Result Comment: PERF ORMED BY: [place] [address] PATHOLOGIST DRAFTER CHIEF DESIGN DIANDRA LACY M.D. Performed By: #### P T #### [address] Glucose [Mass/Vol] 304 mg/dL Normal [facility] Comment on above: Result Comment: [place] om Glucose Reference Range is dependent on time and content of last meal. Glucose of more than 200 mg/dL in a nonstressed, ambulatory subject supports the diagnosis of Diabetes Mellitus. Performed By: #### P T #### [facility] [address] [place] [address] Commemt1 [facility] Comment on above: Result Comment: Glu2 : Result Not Confirmed PERFORMED BY: [place] [address] PATHOLOGIST DRAFTER CHIEF DESIGN DIANDRA LACY M.D. Performed By: #### B MP #### [address] [address] [place] Glucose [Mass/Vol] 440 mg/dL Off scale high [facility] Comment on above: Result Comment: [facility] Glucose Reference Range is dependent on time and content of last meal. Glucose of more than 200 mg/dL in a nonstressed, ambulatory subject supports the diagnosis of Diabetes Mellitus. Performed By: #### B MP #### [facility] [address] [place] [address] Hepatitis Acute Panelon 07-28 HBsAg Screen Negative Normal Negative [facility] Comment on above: Order Comment: DRAW ALL LABS WITH TROP AT 1647 Performed By: #### H EPACUTE #### [facility] , Hepatitis A Antibody IgM Negative Normal Negative [facility] Comment on above: Order Comment: DRAW ALL LABS WITH TROP AT 1647 Performed By: #### H EPACUTE #### [facility] , Hepatitis B Core Antibody IgM Negative Normal Negative [facility] Comment on above: Order Comment: DRAW ALL LABS WITH TROP AT 1647 Performed By: #### H EPACUTE #### [facility] , Hepatitis C Virus Antibody Non-Reactive Normal Non Reactive [facility] Comment on above: Order Comment: DRAW ALL LABS WITH TROP AT 1647 Performed By: #### H EPACUTE #### [facility] , Interpretation Hepatitis C Normal . [facility] Comment on above: Order Comment: DRAW ALL LABS WITH TROP AT 1647 Result Comment: Not infected with HCV unless early or acute infection is suspected (which may be delayed in an immunocompromised individual), or other evidence exists to indicate HCV infection. Performed at: - [facility] [address] [id number] Machine Accountant: Lee Bob PhD, Phone: [phone] PERFORMED BY: [place] [address] PATHOLOGIST DRAFTER CHIEF DESIGN DIANDRA LACY M.D. Performed By: #### H EPACUTE #### [facility] , Hepatitis B virus surface Ag [Presence] in Serum or Plasma by ImmunoassayOrdered By: Alicia Perea on 08-11-2022 HBV surface Ag IA Ql Negative Negative [facility] Hepatitis C virus IgG Ab [Pr esence] in Serum or Plasma by ImmunoassayOrdered By: Alicia Perea on 08-11-2022 HCV IgG IA Ql Non-Reactive Non Reactive [facility] Hepatitis C virus RNA [Units /volume] (viral load) in Serum or Plasma by SAVANNAH with probOrdered By: Alicia Perea on 08-11-2022 HCV RNA SAVANNAH+probe Qn N/A [facility] Hepatitis C virus RNA [log u nits/volume] (viral load) in Serum or Plasma by SAVANNAH withOrdered By: Alicia Perea on 08-11-2022 HCV RNA SAVANNAH+probe [Log units/Vol] N/A [facility] - CoagulationOrde red By: Hiral Interiano on 08-11-2022 PT Coag (PPP) [Time] 12.2 s 9.0-12.9 [facility] Lymphocytes/100 WBC Manual c nt (Bld)Ordered By: Hiral Interiano on 08-11-2022 Lymphocytes/100 WBC (Bld) 5 % 18-42 [facility] Microcytes LM Ql (Bld)Ordere d By: Hiral Interiano on 08-11-2022 Microcytes Ql (Bld) Slight [facility] Monocytes/100 WBC Manual cnt (Bld)Ordered By: Hiral Interiano on 08-11-2022 Monocytes/100 WBC (Bld) 1 % 2-11 [facility] No Panel InformationOrdered By: Alicia Perea on 08-11-2022 Hepatitis A IgM Antibody Negative Negative [facility] Hepatitis B Core IgM Antibody Negative Negative [facility] Hepatitis C Interpretation See comment . [facility] Comment on above: Not infected with HC V unless early or acute infection issuspected (which may be delayed in an immunocompromisedindividual), or other evidence exists to indicate HCVinfection.Performed at: - [facility] [id number] Director: Lee Bob PhD, Phone: [phone] Hepatitis C RNA Quantitative N/A [facility] POINT OF CARE GLUCOSEon 07-28 Glucose [Mass/Vol] 132 mg/dL Critically high 74-106 [facility] Comment on above: Performed By: #### T SH, LIPID, T4, FT3, CMP #### [facility] [address] [place] [address] [address] Alicia Patel Glucose [Mass/Vol] 117 mg/dL Critically high 74-106 [facility] Comment on above: Performed By: #### T SH, LIPID, T4, FT3, CMP #### [facility] [address] [address] [address] Alicia Patel Glucose [Mass/Vol] 95 mg/dL Normal 74-106 [facility] Comment on above: Performed By: #### P OCGLUC #### [facility] [address] [place] [address] Dr. Alicia Patel PROF CHEM 8 (BAS METB)on Creatinine [Mass/Vol] 17.89 mg/dL High 0.64-1.27 [facility] Comment on above: Performed By: #### T SH, LIPID, T4, FT3, CMP #### [facility] [address] [place] [address] Dr. Alicia Patel Performed By: #### B MP #### [facility] [address] Anion gap [Moles/Vol] 29.5 mmol/L Normal Th [facility] Comment on above: Performed By: #### T SH, LIPID, T4, FT3, CMP #### [facility] [address] [address] [address] Alicia Patel Calcium [Mass/Vol] 7.7 mg/dL Critically low 8.5-10.1 [facility] Comment on above: Performed By: #### T SH, LIPID, T4, FT3, CMP #### [facility] [address] [place] [address] Dr. Alicia Patel Chloride [Moles/Vol] 102 mmol/L Normal 98-107 [facility] Comment on above: Performed By: #### T SH, LIPID, T4, FT3, CMP #### [facility] [address] [place] [address] Dr. Alicia Patel CO2 [Moles/Vol] 13.5 mmol/L Critically low 21.0-32.0 [facility] Comment on above: Performed By: #### T SH, LIPID, T4, FT3, CMP #### [facility] [address] [place] [address] Dr. Alicia Patel EGFR-AF MACEDONIAN 3 mL/min/1.73m2 Critically low >=60 [facility] Comment on above: Performed By: #### T SH, LIPID, T4, FT3, CMP #### [facility] [address] [place] [address] Dr. Alicia Patel EGFR-NON AF MACEDONIAN 3 mL/min/1.73m2 Critically low >=60 [facility] Comment on above: Performed By: #### T SH, LIPID, T4, FT3, CMP #### [facility] [address] [place] [address] Dr. Alicia Patel Glucose [Mass/Vol] 105 mg/dL Normal 74-106 [facility] Comment on above: Performed By: #### T SH, LIPID, T4, FT3, CMP #### [facility] [address] [place] [address] Dr. Alicia Patel Potassium [Moles/Vol] 7.0 mmol/L Critically high 3.5-5.1 [facility] Comment on above: Performed By: #### T SH, LIPID, T4, FT3, CMP #### [facility] [address] [place] [address] Dr. Alicia Patel Sodium [Moles/Vol] 138 mmol/L Normal 136-145 [facility] Comment on above: Performed By: #### T SH, LIPID, T4, FT3, CMP #### [facility] [address] [place] [address] Dr. Alicia Patel Urea nitrogen [Mass/Vol] 156.0 mg/dL Critically high 7.0-18.0 [facility] Comment on above: Performed By: #### T SH, LIPID, T4, FT3, CMP #### [facility] [address] [place], [place] [address] Dr. Alicia Patel Urea nitrogen/Creatinine [Mass ratio] 8.7 mg/mg Normal [facility] Comment on above: Performed By: #### T SH, LIPID, T4, FT3, CMP #### [facility] [address] [place], [place] [address] Dr. Alicia Patel Platelet adequacy [Presence] in Blood by Light microscopyOrdered By: Hiral Interiano on 08-11-2022 Platelets LM Ql (Bld) Normal Normal [facility] Platelet morphology finding [Identifier] in BloodOrdered By: Hiral Interiano on 08-11-2022 Platelet morphology finding Nom (Bld) Normal Normal [facility] Platelet poor plasma interna tional normalized ratio (INR) by coagulation assay (relatOrdered By: Hiral Interiano on 08-11-2022 INR Coag (PPP) [Relative time] 1.0 {INR} [facility] Comment on above: INR Therapeutic Rang e [...] on 08-11-2022 Poikilocytosis LM Ql (Bld) Slight [facility] Prothrombin Time INRon 08-11 INR Coag (PPP) [Relative time] 1.0 {INR} Normal [facility] Comment on above: Result Comment: INR Therapeutic [...] 3 - 4.5 PERFORMED BY: [place] [address] PATHOLOGIST DRAFTER CHIEF DESIGN DIANDRA LACY M.D. Performed By: #### P T #### [address] PT Coag (PPP) [Time] 12.2 s Normal 9.0-12.9 [facility] Comment on above: Performed By: #### P T #### [address] RBC morphologyOrdered By: Donal Interiano on 08-11-2022 RBC morphology finding Nom (Bld) N/A [facility] Segmented neutrophils/100 WB C Manual cnt (Bld)Ordered By: Hiral Interiano on 08-11-2022 Segmented neutrophils/100 WBC (Bld) 94 % 50-70 [facility] Troponin I High Sensitivityo n 08-11-2022 Troponin I High Sensitivity 42 pg/mL High 0-20 [facility] Comment on above: Result Comment: PERF ORMED BY: [place] [address] PATHOLOGIST DRAFTER CHIEF DESIGN DIANDRA LACY M.D. Performed By: #### H S TROP ####[address] Troponin I High Sensitivity 16 pg/mL Normal 0-20 [facility] Comment on above: Result Comment: PERF ORMED BY: [place] [address] PATHOLOGIST DRAFTER CHIEF DESIGN DIANDRA LACY M.D. Performed By: #### P T #### [facility] [address] [place] [address] Troponin I.cardiac [Mass/vol ume] in Serum or Plasma by High sensitivity methodOrdered By: Hiral Interiano on 08-11-2022 Troponin I.cardiac High sensitivity method [Mass/Vol] 42 pg/mL 0-20 [facility] URINE MICROSCOPIC ONLYon BACTERIA TRACE Abnormal NONE SEEN [facility] Comment on above: Performed By: #### T SH, LIPID, T4, FT3, CMP #### [facility] [address] [address] [address] Alicia Patel Bacteria identified Cx Nom (U) NOT INDICATED Normal [facility] Comment on above: Performed By: #### T SH, LIPID, T4, FT3, CMP #### [facility] [address] [address] [address] Alicia Patel CAST NONE SEEN Normal NONE SEEN [facility] Comment on above: Performed By: #### T SH, LIPID, T4, FT3, CMP #### [facility] [address] [address] [address] Alicia Patel Crystals LM Nom (Urine sed) NONE SEEN Normal NONE SEEN [facility] Comment on above: Performed By: #### T SH, LIPID, T4, FT3, CMP #### [facility] [address] [address] [address] Alicai Patel Epithelial cells LM Ql (Urine sed) RARE Normal NONE SEEN /RARE [facility] Comment on above: Performed By: #### T SH, LIPID, T4, FT3, CMP #### [facility] [address] [address] [address] Alicia Patel MUCOUS NONE SEEN Normal NONE SEEN [facility] Comment on above: Performed By: #### T SH, LIPID, T4, FT3, CMP #### [facility] [address] [address] [address] Alicia Patel RBC 2-5 Abnormal 0-2 [facility] Comment on above: Performed By: #### T SH, LIPID, T4, FT3, CMP #### [facility] [address] [address] [address] Alicia Patel WBC 2-5 Abnormal NONE SEEN [facility] Comment on above: Performed By: #### T SH, LIPID, T4, FT3, CMP #### [facility] [address] [place] [address] Dr. Alicia Patel XR CHEST 1 Von [...] by: YOGESH BYERS Date: 2022-08-11 04:27 Normal [facility] XR chest 1V portableon 08-11 XR chest 1V portable [facility] [place] [address] [place] [address] XRay Report Signed Patient: Victorino Smyth MR#: [id number] : 1940 Acct:[id number] Age/Sex: 82 / M ADM Date: 08/11/22 Loc: Room: [address] [place] [address] Type: ADM IN Attending Dr: Hiral Interiano [...] Rehan Fuentes M.D.08/11/2022 4:10 PM Dictation Location: [place] [id number] Transcribed By: [facility] 08/11/22 1610 Dictated By: Rehan Fuentes DO 08/11/22 1602 Signed By: 08/11/22 1610 [facility] Covid-19 PCR (CVDTBH)on SARS-CoV-2 (COVID-19) RNA SAVANNAH+probe Ql (Unsp spec) Not detected Normal NOT DETECTED [facility] Comment on above: Result Comment: This test is not yet approved or cleared by the [place] FDA. When there are no FDA-approved or cleared tests available, and other criteria are met, FDA can make tests available under an emergency access mechanism called an Emergency Use Authorization (EUA). The EUA for this test is supported by the Site Safety Manager of Health and Human Service's (HHS's) declaration [...] T SH, LIPID, T4, FT3, CMP #### [facility] [address] [place] [address] Dr. Alicia Patel INFLUENZA A AND B AGon 08-02 [facility] SEE BELOW Normal [facility] Comment on above: Result Comment: Nega tive for Flu A protein angiten. Infection due to Flu A cannot be ruled out. Flu A angiten in the sample may be below the detection limit of the test. Performed By: #### T SH, LIPID, T4, FT3, CMP #### [facility] [address] [place] [address] Dr. Alicia Patel [facility] SEE BELOW Normal [facility] Comment on above: Result Comment: Nega tive for Flu B protein antigen. Infection due to Flu B cannot be ruled out. Flu B antigen in the sample may be below the detection limit of the test. Performed By: #### T SH, LIPID, T4, FT3, CMP #### [facility] [address] [place] [address] Dr. Alicia Patel INFLUENZA A AG Negative Normal NEGATIVE SEE COMMENT [facility] Comment on above: Performed By: #### T SH, LIPID, T4, FT3, CMP #### [facility] [address] [place] [address] Dr. Alicia Patel INFLUENZA B AG Negative Normal NEGATIVE SEE COMMENT [facility] Comment on above: Performed By: #### T SH, LIPID, T4, FT3, CMP #### [facility] [address] [place] [address] Dr. Alicia Patel PTH INTACTon 05-25-2022 PTH, Intact 47 pg/mL Normal 15-65 [facility] Comment on above: Performed By: #### T SH, LIPID, T4, FT3, CMP #### [facility] [address] [place] [address] Dr. Alicia Patel ALBUMINon 05-24-2022 Albumin [Mass/Vol] 3.9 g/dL Normal 3.4-5.0 [facility] Comment on above: Performed By: #### T SH, LIPID, T4, FT3, CMP #### [facility] [address] [place] [address] Dr. Alicia Patel HEMOGRAM AND PLATELon 2021 Hematocrit (Bld) [Volume fraction] 42.1 % Normal 42.0-54.0 [facility] Comment on above: Performed By: #### T SH, LIPID, T4, FT3, CMP #### [facility] [address] [place] [address] Dr. Alicia Patel Hemoglobin (Bld) [Mass/Vol] 14.7 g/dL Normal 14.0-18.0 [facility] Comment on above: Performed By: #### T SH, LIPID, T4, FT3, CMP #### [facility] [address] [place] [address] Dr. Alicia Patel MCH (RBC) [Entitic mass] 33.2 pg Normal 25.9-34.0 [facility] Comment on above: Performed By: #### T SH, LIPID, T4, FT3, CMP #### [facility] [address] [place] [address] Dr. Alicia Patel MCHC (RBC) [Mass/Vol] 34.9 g/dL Normal 29.9-35.2 [facility] Comment on above: Performed By: #### T SH, LIPID, T4, FT3, CMP #### [facility] [address] [place] [address] Dr. Alicia Patel MCV (RBC) [Entitic vol] 95.0 fL Critically high 80.0-94.0 [facility] Comment on above: Performed By: #### T SH, LIPID, T4, FT3, CMP #### [facility] [address] [place] [address] Dr. Alicia Patel PLT 190 103/ul Normal 150-450 [facility] Comment on above: Performed By: #### T SH, LIPID, T4, FT3, CMP #### [facility] [address] [place] [address] Dr. Alicia Patel RBC 4.43 106/ul Critically low 4.70-6.10 [facility] Comment on above: Performed By: #### T SH, LIPID, T4, FT3, CMP #### [facility] [address] [place] [address] Dr. Alicia Patel WBC 7.0 103/ul Normal 4.0-11.0 [facility] Comment on above: Performed By: #### T SH, LIPID, T4, FT3, CMP #### [facility] [address] [place] [address] Dr. Alicia Patel MAGNESIUMon 05-24-2022 Magnesium [Mass/Vol] 1.7 mg/dL Critically low 1.8-2.4 [facility] Comment on above: Performed By: #### T SH, LIPID, T4, FT3, CMP #### [facility] [address] [place] [address] Dr. Alicia Patel PHOSPHORUSon 05-24-2022 Phosphate [Mass/Vol] 3.7 mg/dL Normal 2.6-4.7 [facility] Comment on above: Performed By: #### T SH, LIPID, T4, FT3, CMP #### [facility] [address] [place] [address] Dr. Alicia Patel PROF CHEM 8 (BAS METB)on Anion gap [Moles/Vol] 11.2 mmol/L Normal Th [facility] Comment on above: Performed By: #### U RTPCR #### [facility] [address] [address] [address] Alicia Patel Calcium [Mass/Vol] 9.1 mg/dL Normal 8.5-10.1 [facility] Comment on above: Performed By: #### U RTPCR #### [facility] [address] [address] [address] Alicia Patel Chloride [Moles/Vol] 104 mmol/L Normal 98-107 [facility] Comment on above: Performed By: #### U RTPCR #### [facility] [address] [address] [address] Alicia Patel CO2 [Moles/Vol] 29.2 mmol/L Normal 21.0-32.0 [facility] Comment on above: Performed By: #### U RTPCR #### [facility] [address] [address] [address] Alicia Patel Creatinine [Mass/Vol] 1.40 mg/dL Critically high 0.70-1.30 [facility] Comment on above: Performed By: #### U RTPCR #### [facility] [address] [address] [address] Alicia Patel EGFR-AF MACEDONIAN 59 mL/min/1.73m2 Critically low >=60 [facility] Comment on above: Performed By: #### U RTPCR #### [facility] [address] [address] [address] Alicia Patel EGFR-NON AF MACEDONIAN 49 mL/min/1.73m2 Critically low >=60 [facility] Comment on above: Performed By: #### U RTPCR #### [facility] [address] [address] [address] Alicia Patel Glucose [Mass/Vol] 148 mg/dL Critically high 74-[address] [facility] Comment on above: Performed By: #### U RTPCR #### [facility] [address] [address] [address] Alicia Patel Potassium [Moles/Vol] 4.4 mmol/L Normal 3.5-5.1 [facility] Comment on above: Performed By: #### U RTPCR #### [facility] [address] [address] [address] Alicia Patel Sodium [Moles/Vol] 140 mmol/L Normal 136-145 [facility] Comment on above: Performed By: #### U RTPCR #### [facility] [address] [place] [address] Dr. Alicia Patel Urea nitrogen [Mass/Vol] 16.0 mg/dL Normal 7.0-18.0 [facility] Comment on above: Performed By: #### U RTPCR #### [facility] [address] [place] [address] Dr. Alicia Patel Urea nitrogen/Creatinine [Mass ratio] 11.4 mg/mg Normal [facility] Comment on above: Performed By: #### U RTPCR #### [facility] [address] [place] [address] Dr. Alicia Patel UA RANDOM W/MICROSCOPICon BACTERIA NONE SEEN Normal NONE SEEN [facility] Comment on above: Performed By: #### T SH, LIPID, T4, FT3, CMP #### [facility] [address] [place] [address] Dr. Alicia Patel Bilirubin Ql (U) Negative Normal NEGATIVE [facility] Comment on above: Performed By: #### T SH, LIPID, T4, FT3, CMP #### [facility] [address] [place] [address] Dr. Alicia Patel CAST NONE SEEN Normal NONE SEEN [facility] Comment on above: Performed By: #### T SH, LIPID, T4, FT3, CMP #### [facility] [address] [place] [address] Dr. Alicia Patel Clarity (U) CLEAR Normal CLEAR [facility] Comment on above: Performed By: #### T SH, LIPID, T4, FT3, CMP #### [facility] [address] [address] [address] Alicia Patel Color (U) LT. YELLOW Normal YELLOW [facility] Comment on above: Performed By: #### T SH, LIPID, T4, FT3, CMP #### [facility] [address] [address] [address] Alicia Patel Crystals LM Nom (Urine sed) NONE SEEN Normal NONE SEEN [facility] Comment on above: Performed By: #### T SH, LIPID, T4, FT3, CMP #### [facility] [address] [address] [address] Alicia Patel Epithelial cells LM Ql (Urine sed) FEW Abnormal NONE SEEN /RARE [facility] Comment on above: Performed By: #### T SH, LIPID, T4, FT3, CMP #### [facility] [address] [place] [address] Dr. Alicia Patel Glucose Ql (U) Negative Normal NEGATIVE [facility] Comment on above: Performed By: #### T SH, LIPID, T4, FT3, CMP #### [facility] [address] [place] [address] Dr. Alicia Patel Hemoglobin Ql (U) Negative Normal NEGATIVE [facility] Comment on above: Performed By: #### T SH, LIPID, T4, FT3, CMP #### [facility] [address] [place] [address] Dr. Alicia Patel Ketones Ql (U) Negative Normal NEGATIVE [facility] Comment on above: Performed By: #### T SH, LIPID, T4, FT3, CMP #### [facility] [address] [place] [address] Dr. Alicia Patel LEUKOCYTES Negative Normal NEGATIVE [facility] Comment on above: Performed By: #### T SH, LIPID, T4, FT3, CMP #### [facility] [address] [address] [address] Alicia Patel MUCOUS NONE SEEN Normal NONE SEEN [facility] Comment on above: Performed By: #### T SH, LIPID, T4, FT3, CMP #### [facility] [address] [place] [address] Dr. Alicia Patel Nitrite Ql (U) Negative Normal NEGATIVE [facility] Comment on above: Performed By: #### T SH, LIPID, T4, FT3, CMP #### [facility] [address] [place] [address] Dr. Alicia Patel pH (U) 5.5 [pH] Normal 5-9 [facility] Comment on above: Performed By: #### T SH, LIPID, T4, FT3, CMP #### [facility] [address] [place] [address] Dr. Alicia Patel RBC NONE SEEN Abnormal 0-2 [facility] Comment on above: Performed By: #### T SH, LIPID, T4, FT3, CMP #### [facility] [address] [place] [address] Dr. Alicia Patel SPEC GRAVITY 1.020 Normal 1.005-<=1. 025 [facility] Comment on above: Performed By: #### T SH, LIPID, T4, FT3, CMP #### [facility] [address] [place] [address] Dr. Alicia Patel UA PROTEIN Negative Normal NEGATIVE/ TRACE [facility] Comment on above: Performed By: #### T SH, LIPID, T4, FT3, CMP #### [facility] [address] [place] [address] Dr. Alicia Patel Urobilinogen Qn (U) 0.2 {Wil'U}/dL Normal 0.2 - 1. 0 [facility] Comment on above: Performed By: #### T SH, LIPID, T4, FT3, CMP #### [facility] [address] [place] [address] Dr. Alicia Patel WBC NONE SEEN Normal NONE SEEN [facility] Comment on above: Performed By: #### T SH, LIPID, T4, FT3, CMP #### [facility] [address] [place] [address] Dr. Alicia Patel URIC ACID SERUMon 05-24-2022 Urate [Mass/Vol] 5.6 mg/dL Normal 3.5-7.2 [facility] Comment on above: Performed By: #### T SH, LIPID, T4, FT3, CMP #### [facility] [address] [address] [address] Alicia Patel URINE T PROTEIN CREAT RATIOo n 05-24-2022 Protein (U) [Mass/Vol] 26.0 mg/dL Critically high <=12.0 [facility] Comment on above: Performed By: #### T SH, LIPID, T4, FT3, CMP #### [facility] [address] [address] [address] Alicia Patel UR PROT CREAT RAT 0.34 Normal [facility] Comment on above: Performed By: #### T SH, LIPID, T4, FT3, CMP #### [facility] [address] [address] [address] Alicia Patel URINE CREAT 77.39 mg/dL Normal 20.00-300. 00 [facility] Comment on above: Performed By: #### T SH, LIPID, T4, FT3, CMP #### [facility] [address] [address] [address] Alicia Patel Vital Signs Date Time Vital Sign Value Performing Clinician Facility 06-14-2023 11:00-0500 Body height 175.26 cm Alicia Brit Other [facility] Other 06-14-2023 11:00-0500 Body mass index (BMI) [Ratio] 38.51 kg/m2 Alicia Brit Other [facility] Other 06-14-2023 11:00-0500 Body temperature 97.2 [degF] Alicia Brit Other [facility] [facility] Other 06-14-2023 11:00-0500 Body weight 118.3 kg Alicia Brit Other [facility] [facility] Other 06-14-2023 11:00-0500 Diastolic blood pressure 72 mm[Hg] Alicia Brit Other [facility] [facility] Other 06-14-2023 11:00-0500 Respiratory rate 18 /min Alicia Brit Other [facility] [facility] Other 06-14-2023 11:00-0500 SaO2% (BldA) [Mass fraction] 95 % Alicia Brit Other [facility] [facility] Other 06-14-2023 11:00-0500 Systolic blood pressure 122 mm[Hg] Alicia Brit Other [facility] [facility] Other 11-29-2022 10:20-0400 Body height 175.26 cm Alicia Brit Other [facility] Other 11-29-2022 10:20-0400 Body mass index (BMI) [Ratio] 36.77 kg/m2 Alicia Brit Other [facility] [facility] Other 11-29-2022 10:20-0400 Body temperature 96.3 [degF] Alicia Brit Other [facility] [facility] Other 11-29-2022 10:20-0400 Body weight 112.95 kg Alicia Brit Other [facility] [facility] Other 11-29-2022 10:20-0400 Diastolic blood pressure 72 mm[Hg] Alicia Brit Other [facility] [facility] Other 11-29-2022 10:20-0400 Respiratory rate 18 /min Alicia Brit Other [facility] [facility] Other 11-29-2022 10:20-0400 SaO2% (BldA) [Mass fraction] 96 % Alicia Brit Other [facility] [facility] Other 11-29-2022 10:20-0400 Systolic blood pressure 137 mm[Hg] Alicia Brit Other [facility] Other 10-07-2022 17:25-0400 Heart rate 66 /min [facility] 10-07-2022 17:25-0400 SaO2% (BldA) [Mass fraction] 92 % [facility] 10-07-2022 17:25-0400 Respiratory rate 16 /min [facility] 10-07-2022 17:24-0400 Body temperature 97.7 [degF] [facility] 10-07-2022 17:24-0400 Diastolic blood pressure 74 mm[Hg] [facility] 10-07-2022 17:24-0400 Mean blood pressure 106 mm[Hg] [facility] 10-07-2022 17:24-0400 Systolic blood pressure 170 mm[Hg] [facility] 10-07-2022 16:18-0400 Heart rate 61 /min [facility] 10-07-2022 16:18-0400 SaO2% (BldA) [Mass fraction] 95 % [facility] 10-07-2022 16:17-0400 Diastolic blood pressure 81 mm[Hg] [facility] [employer] [facility] 10-07-2022 16:17-0400 Mean blood pressure 103 mm[Hg] [facility] 10-07-2022 16:17-0400 Systolic blood pressure 148 mm[Hg] [facility] 10-07-2022 16:17-0400 Respiratory rate 16 /min [facility] 10-07-2022 16:11-0400 Diastolic blood pressure 75 mm[Hg] [facility] 10-07-2022 16:11-0400 Heart rate 58 /min [facility] 10-07-2022 16:11-0400 Mean blood pressure 98 mm[Hg] [facility] 10-07-2022 16:11-0400 Respiratory rate 17 /min [facility] 10-07-2022 16:11-0400 SaO2% (BldA) [Mass fraction] 97 % [facility] 10-07-2022 16:11-0400 Systolic blood pressure 144 mm[Hg] [facility] 10-07-2022 16:00-0400 Mean blood pressure 92 mm[Hg] [facility] 10-07-2022 16:00-0400 Respiratory rate 13 /min [facility] 10-07-2022 15:55-0400 Mean blood pressure 86 mm[Hg] [facility] 10-07-2022 15:55-0400 Respiratory rate 17 /min [facility] 10-07-2022 15:46-0400 Body temperature 98.06 [degF] [facility] 10-07-2022 15:40-0400 Respiratory rate 15 /min [facility] 10-07-2022 10:14-0400 Mean blood pressure 97 mm[Hg] [facility] 10-07-2022 10:14-0400 Blood Pressure Location Ni [facility] 10-07-2022 10:13-0400 Heart rate 64 /min [facility] 10-07-2022 10:12-0400 Body temperature 98.06 [degF] [facility] 10-07-2022 10:12-0400 Blood Pressure Location [facility] 09-15-2022 14:40-0400 Body height 175.26 cm Alicia Brit Other [facility] [employer] Other 09-15-2022 14:40-0400 Body mass index (BMI) [Ratio] 37.48 kg/m2 Alicia Brit Other [employer] Other 09-15-2022 14:40-0400 Body weight 115.12 kg Alicia Brit Other [employer] [facility] Other 09-15-2022 14:40-0400 Diastolic blood pressure 73 mm[Hg] Alicia Brit Other [employer] [facility] Other 09-15-2022 14:40-0400 Respiratory rate 18 /min Alicia Brit Other [facility] Other 09-15-2022 14:40-0400 SaO2% (BldA) [Mass fraction] 97 % Alicia Brit Other [facility] [employer] Other 09-15-2022 14:40-0400 Systolic blood pressure 138 mm[Hg] Alicia Brit Other [facility] [facility] Other 09-06-2022 10:01-0400 Blood Pressure Location Ni [employer] [facility] 09-06-2022 10:01-0400 Diastolic blood pressure 70 mm[Hg] Ni [employer] [facility] 09-06-2022 10:01-0400 Heart rate 68 /min [facility] [employer] [facility] 09-06-2022 10:01-0400 Systolic blood pressure 132 mm[Hg] Ni [employer] [facility] 08-15-2022 12:16-0500 Body temperature 97.8 [degF] MD Tray Alfaro Work Phone: [facility] 08-15-2022 12:16-0500 Diastolic blood pressure 92 mm[Hg] MD Tray Alfaro Work Phone: [facility] 08-15-2022 12:16-0500 Heart rate 68 /min MD Tray Alfaro Work Phone: [facility] 08-15-2022 12:16-0500 Respiratory rate 18 /min MD Tray Alfaro Work Phone: [facility] 08-15-2022 12:16-0500 SaO2% (BldA) [Mass fraction] 95 % MD Tray Alfaro Work Phone: [facility] 08-15-2022 12:16-0500 Systolic blood pressure 146 mm[Hg] MD Tray Alfaro Work Phone: [facility] 08-15-2022 05:08-0500 Body weight 118.2 kg MD Tray Alfaro Work Phone: [facility] 08-13-2022 13:10-0500 Inhaled oxygen flow rate 8 L/min MD Tray Alfaro Work Phone: [facility] 08-13-2022 11:54-0500 Body height 177.8 cm MD Tray Alfaro Work Phone: [facility] 08-13-2022 11:54-0500 Body mass index (BMI) [Ratio] 37.3 kg/m2 MD Tray Alfaro Work Phone: [facility] 06-01-2022 11:40-0500 Body height 175.26 cm Alicia Brit Other [employer] Other 06-01-2022 11:40-0500 Body mass index (BMI) [Ratio] 37.77 kg/m2 Alicia Brit Other [employer] [facility] Other 06-01-2022 11:40-0500 Body temperature 97.5 [degF] Alicia Brit Other [employer] [facility] Other 06-01-2022 11:40-0500 Body weight 116.03 kg Alicia Brit Other [employer] [facility] Other 06-01-2022 11:40-0500 Diastolic blood pressure 71 mm[Hg] Alicia Brit Other [employer] [facility] Other 06-01-2022 11:40-0500 Respiratory rate 18 /min Alicia Brit Other [employer] [facility] Other 06-01-2022 11:40-0500 SaO2% (BldA) [Mass fraction] 93 % Alicia Brit Other [employer] [facility] Other 06-01-2022 11:40-0500 Systolic blood pressure 134 mm[Hg] Alicia Brit Other [employer] [facility] Other 11-24-2021 11:20-0400 Body height 175.26 cm Alicia Brit Other [employer] [facility] Other 11-24-2021 11:20-0400 Body mass index (BMI) [Ratio] 36.26 kg/m2 Alicia Brit Other [employer] [facility] Other 11-24-2021 11:20-0400 Body temperature 96.4 [degF] Alicia Brit Other [employer] [facility] Other 11-24-2021 11:20-0400 Body weight 111.4 kg Alicia Brit Other [employer] [facility] Other 11-24-2021 11:20-0400 Diastolic blood pressure 72 mm[Hg] Alicia Brit Other [employer] [facility] Other 11-24-2021 11:20-0400 Respiratory rate 18 /min Alicia Brit Other [employer] Other 11-24-2021 11:20-0400 SaO2% (BldA) [Mass fraction] 95 % Alicia Brit Other [employer] [facility] Other 11-24-2021 11:20-0400 Systolic blood pressure 139 mm[Hg] Alicia Brit Other [employer] Other 10-26-2021 09:17-0400 Blood Pressure Location [place] [facility] 10-26-2021 09:17-0400 Diastolic blood pressure 69 mm[Hg] [place] [facility] 10-26-2021 09:17-0400 Heart rate 64 /min [place] [facility] 10-26-2021 09:17-0400 Respiratory rate 16 /min [place] [facility] 10-26-2021 09:17-0400 Systolic blood pressure 139 mm[Hg] [place] [facility] 05-26-2021 11:00-0500 Body height 175.26 cm Alicia Brit Other [employer] Other 05-26-2021 11:00-0500 Body mass index (BMI) [Ratio] 34.4 kg/m2 Alicia Brit Other [employer] Other 05-26-2021 11:00-0500 Body temperature 96.9 [degF] Alicia Brit Other [employer] [facility] Other 05-26-2021 11:00-0500 Body weight 105.69 kg Alicia Brit Other [employer] [facility] Other 05-26-2021 11:00-0500 Diastolic blood pressure 80 mm[Hg] Alicia Brit Other [employer] Other 05-26-2021 11:00-0500 Respiratory rate 18 /min Alicia Brit Other [employer] [facility] Other 05-26-2021 11:00-0500 SaO2% (BldA) [Mass fraction] 94 % Alicia Brit Other [employer] [facility] Other 05-26-2021 11:00-0500 Systolic blood pressure 136 mm[Hg] Alicia Brit Other [employer] Other Encounters Encounter Date Encounter Type Care Provider Facility Start: 06-12-2024 ambulatory Ni OLIVARES Facility :[facility] Start: 07-02-2023 End: 07-02-2023 ambulatory Ni Olivares Facility:[facility] Start: 07-02-2023 End: 07-02-2023 ambulatory MD Tray Alfaro Work Phone: [facility] Work Phone: Start: 07-02-2023 End: 07-02-2023 Patient encounter procedure MD Tray Alfaro Work Phone: [facility] [place] Work Phone: Start: 06-28-2023 End: 06-28-2023 ambulatory Ni Olivares Facility:[facility] Start: 06-28-2023 End: 06-28-2023 ambulatory MD Tray Alfaro Work Phone: [facility] Work Phone: Start: 06-28-2023 End: 06-28-2023 Patient encounter procedure MD Tray Alfaro Work Phone: [facility] [place] Work Phone: Start: 06-16-2023 End: 06-16-2023 ambulatory Ni Olivares Facility:[facility] Start: 06-16-2023 End: 06-16-2023 ambulatory MD Tray Alfaro Work Phone: [facility] Work Phone: Start: 06-16-2023 End: 06-16-2023 Patient encounter procedure MD Tray Alfaro Work Phone: [facility] [place] Work Phone: Start: 06-14-2023 Office outpatient vi sit 25 minutes Alicia Brit [facility] Start: 06-14-2023 End: 06-15-2023 ambulatory Ni OLIVARES [employer] Other Start: 06-14-2023 End: 06-14-2023 Patient encounter procedure Ni OLIVARES [facility] Start: 01-26-2023 End: 01-26-2023 ambulatory [facility] Start: 12-20-2022 End: 12-21-2022 ambulatory Ni OLIVARES Facility:[facility] Start: 12-20-2022 End: 12-20-2022 Patient encounter procedure Ni OLIVARES [facility] Start: 12-02-2022 End: 12-02-2022 ambulatory Ni OLIVARES Facility:[facility] Start: 11-29-2022 End: 11-29-2022 ambulatory Alicia Brit Other [facility] [employer] Other Start: 11-29-2022 Office outpatient vi sit 25 minutes Alicia Brit [facility] Start: 11-18-2022 End: 11-19-2022 ambulatory MD ALICIA PEREA Facility:[facility] Start: 11-18-2022 End: 11-19-2022 ambulatory Ni OLIVARES Facility:[facility] Start: 11-17-2022 End: 11-17-2022 ambulatory [facility] Start: 11-17-2022 End: 11-17-2022 Encounter for preprocedural cardiovascular examination [facility] Start: 11-10-2022 End: 11-24-[address] TRAY ALFARO . Facility: Start: 11-08-2022 End: 11-08-[address] TRAY ALFARO . Facility: Start: 11-06-2022 End: 11-07-[address] TRAY ALFARO . Facility: Start: 10-29-2022 End: 10-30-2022 ambulatory Milton BRAUN Facility:[facility] Start: 10-29-2022 End: 10-29-2022 Patient encounter procedure Milton BRAUN [facility] Start: 10-26-2022 End: 10-27-2022 ambulatory IRIS CORONEL Facility: Start: 10-22-2022 End: 10-23-[address] MILTON BRAUN . Facility: Start: 10-15-2022 End: 10-16-[address] TRAY ALFARO . Facility: Start: 10-14-2022 End: 10-15-2022 ambulatory IRIS CORONEL Facility: Start: 10-14-2022 End: 10-14-2022 ambulatory [facility] Start: 10-07-2022 End: 10-07-2022 ambulatory Ni OLIVARES Facility:[facility] Start: 10-07-2022 End: 10-07-2022 Admission to same day surgery center Ni OLIVARES [facility] Start: 09-15-2022 End: 09-15-2022 ambulatory Alicia Perea Other [employer] Other Start: 09-15-2022 Office outpatient vi sit 25 minutes Alicia Brit [facility] Start: 09-14-2022 End: 09-15-2022 ambulatory Ni OLIVARES Facility:[id number] Start: 09-13-2022 End: 09-14-2022 ambulatory ALICIA BRIT Facility:[facility] Start: 09-06-2022 End: 09-07-2022 ambulatory Ni OLIVARES Facility:[facility] Start: 09-06-2022 End: 09-06-2022 Patient encounter procedure Ni OLIVARES [facility] Start: 09-01-2022 End: 09-02-[address] NI OLIVARES Facility:[facility] Start: 08-31-2022 End: 08-31-2022 ambulatory Tray Alfaro Facility:[facility] Start: 08-24-2022 End: 08-25-[address] TRAY ALFARO . Facility:[facility] Start: 08-22-2022 End: 08-22-[address] TRAY ALFARO . Facility:[facility] Start: 08-21-2022 End: 08-22-[address] TRAY ALFARO . Facility:[facility] Start: 08-18-2022 End: 08-19-2022 ambulatory ALICIA PURDYDIR Facility:[facility] Start: 08-16-2022 ambulatory Ni OLIVARES Facility:[facility] Start: 08-11-2022 ambulatory Facility:[facility] Start: 08-11-2022 Patient encounter status MD Iglesias Work Phone: [facility] Start: 08-11-2022 Encounter for preprocedural cardiovascular examination Hiral Interiano [facility] Start: 08-11-2022 End: 08-15-2022 Evaluation and management of inpatient Gita Mischler Facility:[facility] Start: 08-11-2022 End: 08-15-2022 Encounter for preprocedural cardiovascular examination MD Tray Alfaro Work Phone: [facility] Start: 08-11-2022 End: 08-15-2022 Evaluation and management of inpatient MD Tray Alfaro Work Phone: [facility] Work Phone: Start: 08-11-2022 End: 08-14-2022 ambulatory THADDEUS DAUGHERTY Facility:[facility] Start: 08-02-2022 End: 08-02-[address] TRAY ALFARO . Facility:[facility] Start: 07-08-2022 End: 07-23-[address] TRAY ALFARO . Facility:[facility] Start: 06-01-2022 End: 06-01-2022 ambulatory Alicia Brit Other [employer] Other Start: 06-01-2022 Office outpatient vi sit 25 minutes Alicia Brit [facility] Start: 05-24-2022 End: 05-25-2022 ambulatory ALICIA BRIT Facility:[facility] Start: 02-03-2022 End: 02-04-[address] TRAY ALFARO . Facility:[facility] Start: 11-24-2021 End: 11-24-2021 ambulatory Alicia Brit Other [employer] Other Start: 11-24-2021 Office outpatient vi sit 25 minutes Alicia Brit [facility] Start: 10-26-2021 End: 10-26-2021 Patient encounter procedure Milton BRAUN [facility] Start: 05-26-2021 End: 05-26-2021 ambulatory Alicia Brit Other [employer] Other Start: 05-26-2021 Office outpatient vi sit [...] T SH, LIPID, T4, FT3, CMP #### [facility] [address] [address] [address] Alicia Patel Start: 10-07-2022 Extracorporeal shock wave lithotripsy of calculus of kidney Ni OLIVARES Start: 08-21-2022 PSA screening ALICIA QAD IR Comment on above: Performed By: #### P SAD #### [facility] [address] [address] [address] Alicia Patel Start: 08-13-2022 Cystoscopy MD Tray Alfaor Work Phone: Start: 08-11-2022 Plain chest X-ray MD Iglesias Work Phone: Start: 08-01-2019 Transurethral prostatectomy Milton BRAUN Start: 07-04-2019 Biopsy of prostate Patr humaira KADE Start: 06-27-2019 cystoscopy, bilatera l, ureteroscopy, laser lithotripsy Milton BRAUN ear surgery Milton BRAUN ear surgery Ni OLIVARES Plan of Treatment Date Care Activity Detail Author Start: 08-15-2022 [facility] Start: 08-14-2022 Microbial culture of sputum [facility] Start: 08-14-2022 Aerobic Culture Aerobic Culture [facility] Start: 08-14-2022 Investigation of tra nsfusion reaction Gram Stain [facility] Start: 08-11-2022 Hospital admission [facility] Start: 08-11-2022 Referral to guest service host [facility] Start: 08-11-2022 Referral to cinder crew worker [facility] Start: 08-11-2022 Referral to urologist [facility] CT Chest WO contrast [facility] Patient referral [facility] Work Phone: Renal function 2000 panel - Serum or Plasma [facility] Immunizations Immunization Date Immunization Notes Care Provider Fa cility 05-02-2023 pneumococcal 20-marco nt conjugate vaccine Ni OLIVARES [facility] 05-02-2023 tetanus toxoid, redu martha diphtheria toxoid, and acellular pertussis vaccine, adsorbed Ni OLIVARES [facility] 03-29-2022 SARS-CoV-2 (COVID-19 ) [id number] Ni OLIVARES [facility] 05-18-2021 SARS-CoV-2 (COVID-19 ) Ad26 vaccine, recombinant Ni OLIVARES [facility] 03-30-2021 influenza virus vaccine, unspecified formulation Ni OLIVARES [facility] 09-01-2020 SARS-CoV-2 (COVID-19 ) Ad26 vaccine, recombinant Ni OLIVARES [facility] 06-27-2020 SARS-CoV-2 (COVID-19 ) Ad26 vaccine, recombinant Milton BRAUN [facility] [place] 04-18-2020 influenza virus vaccine, unspecified formulation Ni OLIVARES [facility] 02-05-2020 zoster vaccine recombinant Ni OLIVARES [facility] 12-06-2019 zoster vaccine recombinant Ni OLIVARES [facility] 04-04-2019 influenza virus vaccine, unspecified formulation Milton BRAUN [facility] [place] 04-05-2017 influenza virus vaccine, unspecified formulation Ni OLIVARES [facility] 04-05-2017 pneumococcal conjuga te vaccine, 13 valent Ni OLIVARES [facility] 04-12-2016 influenza, unspecifi ed formulation Ni OLIVARES [facility] Payers Date Payer Category Payer Medicare [id number] 2022 Self-pay [id number] 1959 Private Health Insurance [id number] 2..[id number] 1959 Private Health Insurance [id number] 1942 Unknown [id number] 2.16.840.1.324695.3.579.2.356 1942 Unknown [id number] 2.16.840.1.071062.3.579.2.593 1942 Unknown [id number] 2.16.840.1.726671.3.579.2.593 1942 Unknown [id number] 2.16.840.1.642666.3.579.2.593 1942 Unknown [id number] 2.16.840.1.069286.3.579.2.593 1942 Unknown [id number] 2.16.840.1.390322.3.579.2.593 023 Unknown [id number] 2.16.840.1.455599.3.579.2.593 1942 Unknown [id number] 2.16.840.1.561050.3.579.2.593 1942 Unknown [id number] 2.16.840.1.698950.3.579.2.593 1942 Unknown [id number] 2.16.840.1.143734.3.579.2.593 1942 Unknown [id number] 2.16.840.1.332143.3.579.2.593 1942 Unknown [id number] 2.16.840.1.913903.3.579.2.593 1942 Unknown [id number] 2.16.840.1.361101.3.579.2.593 1942 Unknown [id number] 2.16.840.1.081598.3.579.2.593 1942 Unknown [id number] 2.16.840.1.330474.3.579.2.593 1942 Unknown [id number] 2.16.840.1.604446.3.579.2.593 1942 Unknown [id number] 2.16.840.1.211617.3.579.2.593 1942 Unknown [id number] 2.16.840.1.632166.3.579.2.593 1942 Unknown [id number] 2.16.840.1.909993.3.579.2.593 1942 Unknown [id number] 2.16.840.1.865224.3.579.2.593 1942 Unknown [id number] 2.16.840.1.440616.3.579.2.727 1942 Unknown [id number] 2.16.840.1.683526.3.579.2.727 1942 Unknown [id number] 2.16.840.1.633745.3.579.2. 1942 Unknown [id number] 2.16.840.1.153374.3.579.2.72 1942 Unknown [id number] 2.16.840.1.413899.3.579.2. 1942 Unknown [id number] 2.16.840.1.555676.3.579.2.72 1942 Unknown [id number] 2.16.840.1.379458.3.579.2. 1942 Unknown [id number] 2.16.840.1.341930.3.579.2. 1942 Unknown [id number] 2.16.840.1.418218.3.579.2.72 1942 Unknown [id number] 2.16.840.1.306426.3.579.2. 1942 Unknown [id number] 2.16.840.1.443161.3.579.2.72 Medicare [id number] 2.16.8 40.1.182550.19 Medicare [id number] 2.1 6.840.1.355929.19 Unknown [place] BC/BS [id number] Unknown [id number] 2.16.840.1.840072.3.579.2.531 Unknown [id number] 2.16.840.1.148372.3.579.2.531 Unknown [id number] 2.16.840.1.636205.3.579.2.531 Unknown [id number] 2.16.840.1.200479.3.579.2.531 Unknown [id number] 2.16.840.1.422928.3.579.2.531 Social History Date Type Detail Facility Start: 08-18-2020 End: 08-13-2022 Tobacco smoking status Ex-smoker (finding) [facility] [employer] Other Comment on above: quit in 1978 Sex Assigned At Male [facility] [employer] Other Start: 1940 Sex Assigned At Male [facility] Tobacco smoking status Never [facility] Comment on above: quit in 1978 Medical Equipment Procedure Code Equipment Code Equipment Origin al Text Equipment Identifier Dates Cystoscopy, with ureteral calculus manipulation and stent placement Polymeric ureteral stent ()[id number] FDA Start: 06-15-2019 Cystoscopy, with ureteral calculus manipulation and stent placement Polymeric ureteral stent ()[id number] FDA Start: 06-15-2019 Cystoscopy, with ureteral calculus manipulation and stent placement Polymeric ureteral stent ()[id number] FDA Start: 08-13-2022 Biopsy, prostate, with US guidance Polymeric ureteral stent ()[id number] FDA Start: 07-04-2019 CYSTOSCOPY URETEROSCOPY Ni OLIVARES MD 12/02/22 Unknown Ureter R {[id number] FDA Start: 12-02-2022 Goals Date Patient Goal Desired Activity /State Functional Status Date Assessment Result Facility 12-20-2022 Functional Status N/A [facility] 09-06-2022 Functional Status N/A [facility] 08-15-2022 Functional status Patient at Baseline 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 [employer] Other [id number] Hospital Discharge instructions Patient Education 06/14/2023 09:44:12 [...] include: ?8 oz (237 mL) of milk, knitulx-octuduklrkyi-ajuww milk, and calcium- fortifiedfruit juice. Calcium-fortified means [...] ?Spinach (cooked), rhubarb, beets, sweet potatoes, and Swazi chard. ?Peanuts. ?Potato chips, zimbabwean fries, and baked potatoes with skin on. ?Nuts and nut products. ?Chocolate. If you regularly take a diuretic medicine, make sure to eat at least 1 or 2 servings of fruits or vegetables that are high in potassium each day. These include: ?Avocado. ?Banana. ?[place], prune, carrot, or tomato juice. ?Baked potato. [...] magnesium, fish oil, or vitamin B6. Take ubwe-qcm-zofpodf and prescription medicines only as told by [...] Casseroles. Pizza. Lasagna. Frozen meals. Potato chips. Haitian fries. The items listed above may not [...] provider. Document Revised: 09/23/2022 Document Reviewed: 09/23/2022 [employer] Patient Education 2022 [employer]. Follow Up Care 02/04/2023 14:47:08 With:CARLOS OLIVEROS, Ni Garcia, URL Address: [address] [place] [address] [place], [place] [id number]- When: Unknown [facility] [id number] NoteUT Cardiology - [facility] Subjective Victorino Smyth is a 82 [...] March of 2013, and then developed acute WA related to ISR of the LAD stent on 09/28/2016 and underwent emergent Promus JOSE RAMON stent to the LAD at [facility], was on Brilinta but currently on aspirin [...] Disp: , Rfl: liothyronine (more content not included)...[facility] 12-21-2022 [id number]:127[facility]06-26-2023 NoteCystoscopy with Stent Removal ? Voiding [...] you have a fever over 100 degrees.Gerardo [facility] 12-20-2022 Hospital Discharge instructions Patient Education [...] Up Care 12/07/2022 13:42:13 With:Ni CARLOS Address: [employer] [address] [id number] [facility] (1) When:6 months Comments:Call for followup appointment. [...] those arrangements as well.Have a great day. [facility]06-05-2023 Evaluation note* Encounter Date Diagnosis Assessment Notes Treatment Notes Treatment Clinical Notes Nov, Diabetes mellitus wi th chronic kidney disease (ICD-10 - E11.22) He has jcq-bnnfeii-eknw ndent type 2 diabetes and currently takes [...] and has normal B12 and folate level. [employer] Other [id number] NoteRCRI- 2???points Class III Risk 10.1???% 30-day risk of , WA, or cardiac arrest EKG at last visit [...] and prevent any major fluid shifts. [facility]UnPro[facility]05-24-2023 NoteCoronary artery disease is stable, angina much improved s/p increased imdur dose and adding ranexa. Continue GDMTUnProMedica Toledo Hospital05-24-2023 NotePatient here for 1 mo follow up [...] Risk 10.1 % 30-day risk of , WA, or cardiac arrest EKG at last visit SR with 1st Degree AV block- no acute changes. From a cardiology perspective pt may proceed with planned urological procedure, he is a moderate risk for a low-moderate risk procedure. May hold ASA for 5-7 days prior (more content not included)...[facility] 11-17-2022 NoteHypertension is well controlled today 126/60 with increased norvasc and imdur doses Continue norvasc, lisinopril, imdur, Renal function being monitored by nephrologyUnProMedica [facility] 11-17-2022 NoteContinue statin- lipid level well controlledUnProMedica [facility] Hospital05-24-2023 [id number]:127 [facility]04-20-2023 NoteContinue statinUnProMedica [facility]edo Hospital04-20-2023 NoteIncrease imdur to 120 mg and start ranexa as per Dr Huynh's recommendationsUnProMedica [facility] Hospital04-20-2023 Note Reviewed concerning symptoms and recent labs [...] pain, angina, shortness of breath or further concerns.[facility]04-20-2023 NoteUTP CARDIOLOGY PROGRESS NOTE HPI: Victorino Smyth is a 82 y.o. male here for Chest Pain, Coronary Artery Disease, and Hypertension Patient here c/o chest tightness/burning with exertion the past few months. Says it feels similar to 2017 when he had an WA. Has been becoming more intense lately. States [...] March of 2013, and then developed acute WA related to ISR of the LAD stent on 09/28/2016 and underwent emergent Promus JOSE RAMON stent to the LAD at [facility], was on Brilinta but currently on aspirin [...] medications on file p (more content not included)...[facility]04-20-2023 NotePatient here c/o chest tightness with exertion the past few months. Says it feels similar to 2017 when he had an WA. Has been becoming more intense lately. Says [...] pain. All other systems reviewed and are negative.[facility] 10-07-2022 Hospital Discharge instructions Patient Education 10/07/2022 [...] Follow these instructions at home: Medicines Take bzda-kwl-tywzkfe and prescription medicines only as told by [...] 07/02/2008 Document Revised: 09/24/2019 Document Reviewed: 05/04/2017 [employer] Patient Education 2020 [employer] Follow Up Care 09/06/2022 10:38:13 With:Ni OLIVARES Address: [address] [place], [place] [id number] Business (1) When: Unknown Comments:We were able [...] prior to considering any other anesthesia procedures. [facility]04-13-2023 Evaluation + Plan noteExtracted from: Title:KALEN post op Author:Timothy Pittman MD Date:10/07/22 Plan Transfer/Discharge: Transfer/Discharge Discharge when meets criteria ( To home ). Extracted from: Title:KALEN GA Author:Timothy Pittman MD Date:10/07/22 Plan [place] [employer] of Anesthesiologists (ASA) physical status classification: Class III. Anesthetic Preoperative Plan: Anesthesia General. Future Appointments Appointment Date:10/29/2022 08:45:00 AM Scheduled Provider:Milton BRAUN MD Location:[facility] Appointment Type:URO Office Visit [facility]03-23-2023 Note [id number]:127[facility] 09-15-2022 Evaluation note* Encounter Date Diagnosis Assessment Notes Treatment Notes Treatment Clinical Notes Aug, Diabetes mellitus wi th chronic kidney disease (ICD-10 - E11.22) He has jgj-pgieqpa-naxk ndent type 2 diabetes and currently takes [...] have advised him to adequately hydrate himself. [employer] Other 03-13-2023 Hospital Discharge instructions Patient Education 09/06/2022 10:27:16 Kidney Stones, Ftmx-vm-Jixu Kidney Stones Kidney stones are rock-like masses [...] Follow these instructions at home: Medicines Take duwe-jxs-aedzzzv and prescription medicines only as told by [...] 11/29/2008 Document Revised: 10/30/2019 Document Reviewed: 10/30/2019 [employer] Patient Education 2020 [employer] Follow Up Care 08/17/2022 09:18:37 With:CARLOS OLIVEROS, Ni Garcia, URL Address: [address] [place], [place] [address]- When: Unknown [facility] [id number] Note [id number]:127[facility] 08-15-2022 Discharge summary Author Hiral Interiano [facility] August 15, 2022 1:50pm Note Date/Time August 15, 2022 1:50pm [facility] [address] [place] [address] Discharge Summary Signed Patient: Victorino Smyth MR#: [id number] : 1940 Acct:[id number] Age/Sex: 82 / M Adm Date: 3 Loc: 4N Room: 2I2252-[address]: Hiral Interiano MD Copies to: [...] history of nephrolithiasis. He initially presented to [facility] ER with complaint of hypoglycemia and was found to have severe renal failure along with metabolic acidosis and hyperkalemia. CT scan at [place] [facility] showed atrophic left kidney with obstructing stone in the right ureteropelvic junction. Patient was transferred to [facility] for further intervention. On arrival is noted [...] is also advised to follow-up with his guest service host in 4-week. CT scan at [facility] ER also showed 0.8 cm nodule on [...] Low-Cholesterol Additional Instructions: Follow-up with your Primary It Help Desk Technician in 4 weeks. Avoid NSAIDs for pain [...] office on Tuesday to schedule follow-up with Web Database Developer. ) Documented By: Hiral Interiano MD 08/15/22 [id number] Signed By: <Electronically signed by Hiral Interiano MD> 08/15/22 [id number] [facility] Work Phone: 1(219) 149-332702-19-2023 Progress note Author Alicia Perea [facility] August 15, 2022 12:01pm Note Date/Time August 15, 2022 12:01pm [facility] [address] [place] [address] Nephrology Progress Note Signed Patient: Victorino Smyth MR#: [id number] : 1940 Acct:[id number] Age/Sex: 82 / M Adm Date: 3 Loc: Room: [address] [place] [address] Type: ADM IN Attending Dr: Hiral Interiano MD Copies to: ~ Date of Service: 08/15/2022 Subjective Subjective Narrative: This is a 82-year-old male with a medical history of coronary artery disease s/pPCI, nephrolithiasis, CKD, diabetes mellitus, hypertension, dyslipidemia was presented to the emergency room of [facility] for generalized weakness and low urine output. On evaluation emergency room patient was found to have a life- threatening hyperkalemia with serum potassium 7 mmol/L, acute kidney injurywith elevated serum creatinine 17.8 mg/dL, metabolic acidosis serum bicarbonate 13.5 mmol/L. He was given insulin D50 calcium gluconate in the [facility] emergency room. He had a CAT scan abdomen pelvis done which showed obstructive kidney stones in the right UPJ and total atrophy of the left kidney. Case was discussed with the on-call urologist Dr. Olivares and recommended patient needs to be n.p.o. for surgical intervention. He was transferred to [facility] for further care. Patient is history of CKD due to the longstanding DM, HTN and recurrent KELSEA with baseline serum creatinine 1.4 to 1.6 mg/dL. He follows in my office for his CKD care. Patient after arrival at the [facility] hada repeat labs done which showed [...] visible mass Skin: No rashes or bruises [employer]: Awake,Alert, following simple command Musculoskeletal: No joint [...] 10 Mg Tablet) 10 mg PO DAILY [facility] Stop: 08/16/23 08:59 Aspirin (Aspirin 81 Mg Tablet.Dr) 81 mg PO DAILY [facility]ICIO Stop: 08/12/23 08:59 Last Admin: 08/15/22 09:45 Dose: 81 mg Atorvastatin Calcium (Atorvastatin 40 Mg Tablet) 40 mg PO HS [facility] Stop: 08/11/23 21:59 Last Admin: [...] Units/3 Ml Insuln.Pen) 0 units SUBCUT TID.WM.HS [facility]; Protocol Stop: 08/11/23 16:59 Last Admin: 08/15/22 09:46 Dose: 5 units Insulin Glargine (Insulin Glargine 300 Units/3 Ml Insuln.Pen) 5 units SUBCUT DAILY [facility] Stop: 08/13/23 08:59 Last Admin: 08/15/22 09:47 Dose: 5 units Melatonin (Melatonin 5 Mg Tablet) 5 mg PO QHS PRN PRN Reason: insomnia Stop: 08/14/23 21:59 Last Admin: 08/14/22 21:08 Dose: 5 mg Metoprolol Tartrate (Metoprolol Tartrate 50 Mg Tablet) 50 mg PO BID [facility] Stop: 08/11/23 20:59 Last Admin: [...] signed by Alicia Perea MD> 08/15/22 1201 [facility] Work Phone: [phone] Progress note Author Cade Alvarez [facility] August 15, 2022 11:31am Note Date/Time August 15, 2022 11:31am [facility] [address] [place] [address] Cardiology Progress Note Signed Patient: Victorino Smyth MR#: [id number] : 1940 Acct:[id number] Age/Sex: 82 / M Adm Date: 3 Loc: 4N Room: [address] [place] [address] Type: ADM IN Attending Dr: Hiral Interiano [...] patient has cardiology follow-up with his primary guest service host in [place] within 4 weeks of discharge. (2) CAD (coronary artery disease): Code(s): I25.10 - Atherosclerotic heart disease of [place] coronary artery without angina pectoris Status: Acute [...] signed by Cade Alvarez MD> 08/15/22 1131 [facility] Work Phone: [phone] Progress note Author Hiral Interiano [facility] August 14, 2022 2:57pm Note Date/Time August 14, 2022 2:49pm [facility] [address] [place] [address] Hospitalist Progress Note Signed Patient: Victorino Smyth MR#: [id number] : 1940 Acct:[id number] Age/Sex: 82 / M Adm Date: 3 Loc: 4N Room: [address] [place] [address] Type: ADM IN Attending Dr: Hiral Interiano [...] Vial SUBCUT 08/12/23 21:59 Not Given Q8HR [facility] Hydralazine HCl 10 mg 08/11/22 [...] Ml Insuln.Pen SUBCUT 08/11/23 16:59 Not Given TID.[facility] Protocol Insulin Glargine 5 units 08/13/22 09:00 08/14/22 11:59 Insulin Glargine 300 Units/3 Ml Insuln.Pen SUBCUT 08/13/23 08:59 5 units DAILY [facility] Administration Metoprolol Tartrate 50 mg [...] days. Documented By: Hiral Interiano MD 08/14/22 0939 Signed By: <Electronically signed by Hiral Interiano MD> 08/14/22 1457 [facility] Work Phone: [phone] Progress note Author Alicia Perea [facility] August 14, 2022 11:55am Note Date/Time August 14, 2022 11:55am [facility] [address] [place] [address] Nephrology Progress Note Signed Patient: Victorino Smyth MR#: [id number] : 1940 Acct:[id number] Age/Sex: 82 / M Adm Date: 3 Loc: 4N Room: [address] [place] [address] Type: ADM IN Attending Dr: Hiral Interiano MD Copies to: ~ Date of Service: 08/14/2022 Subjective Subjective Narrative: This is a 82-year-old male with a medical history of coronary artery disease s/pPCI, nephrolithiasis, CKD, diabetes mellitus, hypertension, dyslipidemia was presented to the emergency room of [facility] for generalized weakness and low urine output. On evaluation emergency room patient was found to have a life- threatening hyperkalemia with serum potassium 7 mmol/L, acute kidney injurywith elevated serum creatinine 17.8 mg/dL, metabolic acidosis serum bicarbonate 13.5 mmol/L. He was given insulin D50 calcium gluconate in the [place] emergency room. He had a CAT scan abdomen pelvis done which showed obstructive kidney stones in the right UPJ and total atrophy of the left kidney. Case was discussed with the on-call urologist Dr. Olivares and recommended patient needs to be n.p.o. for surgical intervention. He was transferred to [facility] for further care. Patient is history of CKD due to the longstanding DM, HTN and recurrent KELSEA with baseline serum creatinine 1.4 to 1.6 mg/dL. He follows in my office for his CKD care. Patient after arrival at the [facility] hada repeat labs done which showed [...] visible mass Skin: No rashes or bruises [employer]: Awake,Alert, following simple command Musculoskeletal: No joint [...] 100 Mg Tablet) 100 mg PO BID [facility] Stop: 08/18/22 20:59 Last Admin: [...] 5,000 Unit/Ml Vial) 5,000 unit SUBCUT Q8HR [facility] Stop: 08/12/23 21:59 Last Admin: 08/14/22 06:05 Dose: Not Given Hydralazine HCl (Hydralazine 20 Mg/Ml Vial) 10 mg IV-PUSH Q4H PRN PRN Reason: Hypertension Stop: 08/11/23 13:40 Last Admin: 08/14/22 05:44 Dose: 10 mg Ceftriaxone Sodium (Rocephin) 1 gm in 50 mls @ 100 mls/hr IV Q24H [facility] Stop: 08/14/22 14:14 Last Admin: 08/13/22 15:07 Dose: 100 mls/hr Sodium Chloride (0.9% Sodium Chloride 1,000 Ml) 1,000 mls @ 0 mls/hr MISCELLANE.Q0M PRN PRN Reason: Dialysis Stop: 08/11/23 14:19 Last Infusion: 08/12/22 12:38 Dose: Infused Insulin Aspart (Insulin Aspart 300 Units/3 Ml Insuln.Pen) 0 units SUBCUT TID.[facility]; Protocol Stop: 08/11/23 16:59 Last Admin: [...] Perez Jr., D.O.08/13/2022 2:25 PM Dictation Location: [place] [address] Any impression(s) listed above is documentation that [...] output Documented By: Alicia Perea MD 08/14/22 2114 Signed By: <Electronically signed by Alicia Perea MD> 08/14/22 5110 [facility] Work Phone: [phone]) [phone] Progress note Author Cade Alvarez [facility] August 14, 2022 11:21am Note Date/Time August 14, 2022 11:21am [facility] [address] [place] [address] Cardiology Progress Note Signed Patient: Victorino Smyth MR#: [id number] : 1940 Acct:[id number] Age/Sex: 82 / M Adm Date: 3 Loc: 4N Room: [address] [place] [address] Type: ADM IN Attending Dr: Hiral Interiano [...] % (Auto) 79.6 Lymph % (Auto) 7.8 [place] % (Auto) 11.4 Eos % (Auto) 1.0 Baso % (Auto) 0.2 Nucleat RBC Rel Count 0.1 Neut # (Auto) 5.9 Lymph # (Auto) 0.[address] [place] # (Auto) 0.8 Eos # (Auto) 0.1 [...] MPV Neut % (Auto) Lymph % (Auto) [place] % (Auto) Eos % (Auto) Baso % (Auto) Nucleat RBC Rel Count Neut # (Auto) Lymph # (Auto) [place] # (Auto) Eos # (Auto) Baso # [...] make sure that he has follow-up in [facility] within 4 weeks of discharge. (2) CAD (coronary artery disease): Assessment/Problem Details: Stable/quiescent. No ischemic complications with yesterday's urological procedure. Code(s): I25.10 - Atherosclerotic heart disease of [place] coronary artery without angina pectoris Status: Acute Plan: Medical recommendations as above. Plan Thank you very much for this kind consultation and for allowing us to participate in the care of this very pleasant patient Time spent with patient Time Spent With Patient (min): 30 Documented By: Cade Alvarez MD 08/14/22 1118 Signed By: <Electronically signed by Cade Alvarez MD> 08/14/22 1121 [facility] Work Phone: [phone]) 310-324902-17-2023 Progress note Author Hiral Interiano [facility] August 13, 2022 3:09pm Note Date/Time August 13, 2022 3:02pm [facility] [address] [place] [address] Hospitalist Progress Note Signed Patient: Victorino Smyth MR#: [id number] : 1940 Acct:[id number] Age/Sex: 82 / M Adm Date: 3 Loc: 4N Room: [id number] Type: ADM IN Attending Dr: Hiral Interiano [...] signed by Hiral Interiano MD> 08/13/22 1503 [facility] Work Phone: [phone] Progress note Author Alicia Perea [facility] August 13, 2022 11:29am Note Date/Time August 13, 2022 11:25am [facility] [address] [place] [address] Nephrology Progress Note Signed Patient: Victorino Smyth MR#: [id number] : 1940 Acct:[id number] Age/Sex: 82 / M Adm Date: 3 Loc: Room: [address] [place] [address] Type: ADM IN Attending Dr: Hiral Interiano MD Copies to: ~ Date of Service: 08/13/2022 Subjective Subjective Narrative: This is a 82-year-old male with a medical history of coronary artery disease s/pPCI, nephrolithiasis, CKD, diabetes mellitus, hypertension, dyslipidemia was presented to the emergency room of [facility] for generalized weakness and low urine output. On evaluation emergency room patient was found to have a life- threatening hyperkalemia with serum potassium 7 mmol/L, acute kidney injurywith elevated serum creatinine 17.8 mg/dL, metabolic acidosis serum bicarbonate 13.5 mmol/L. He was given insulin D50 calcium gluconate in the [place] emergency room. He had a CAT scan abdomen pelvis done which showed obstructive kidney stones in the right UPJ and total atrophy of the left kidney. Case was discussed with the on-call urologist Dr. Olivares and recommended patient needs to be n.p.o. for surgical intervention. He was transferred to [facility] for further care. Patient is history of CKD due to the longstanding DM, HTN and recurrent KELSEA with baseline serum creatinine 1.4 to 1.6 mg/dL. He follows in my office for his CKD care. Patient after arrival at the [facility] hada repeat labs done which showed [...] visible mass Skin: No rashes or bruises [employer]: Awake,Alert, following simple command Musculoskeletal: No joint [...] 81 Mg Tablet.Dr) 81 mg PO DAILY [facility] Stop: 08/12/23 08:59 Last Admin: 08/13/22 08:44 Dose: Not Given Atorvastatin Calcium (Atorvastatin 40 Mg Tablet) 40 mg PO HS [facility] Stop: 08/11/23 21:59 Last Admin: 08/12/22 21:07 Dose: 40 mg Dextrose (Dextrose 50% In Water 25 Gm/50 Ml Syringe) 0 gm IV-PUSH PRN PRN PRN Reason: Hypoglycemia Stop: 08/11/23 14:01 Glucose (Dextrose 40% Gel 15 Gm Tube) 0 gm PO PRN PRN PRN Reason: Hypoglycemia Stop: 08/11/23 14:01 Guaifenesin (Guaifenesin 600 Mg Tab.Er.12h) 1,200 mg PO BID [facility] Stop: 08/12/23 20:59 Last Admin: [...] 50 mls @ 100 mls/hr IV Q24H [facility] Last Admin: 08/12/22 16:24 Dose: 100 mls/hr Azithromycin (Zithromax) 500 mg in 250 mls @ 250 mls/hr IV Q24H [facility] Last Admin: 08/12/22 15:06 Dose: 250 mls/hr Sodium Chloride (0.9% Sodium Chloride 1,000 Ml) 1,000 mls @ 0 mls/hr MISCELLANE.Q0M PRN PRN Reason: Dialysis Stop: 08/11/23 14:19 Last Infusion: 08/12/22 12:38 Dose: Infused Insulin Aspart (Insulin Aspart 300 Units/3 Ml Insuln.Pen) 0 units SUBCUT TID..[facility]; Protocol Stop: 08/11/23 16:59 Last Admin: 08/13/22 08:44 Dose: Not Given Insulin Glargine (Insulin Glargine 300 Units/3 Ml Insuln.Pen) 5 units SUBCUT DAILY [facility] Stop: 08/13/23 08:59 Last Admin: 08/13/22 08:45 Dose: Not Given Metoprolol Tartrate (Metoprolol Tartrate 50 Mg Tablet) 50 mg PO BID [facility] Stop: 08/11/23 20:59 Last Admin: [...] input output Documented By: Alicia Perea MD 08/13/22 1124 Signed By: <Electronically signed by Alicia Perea MD> 08/13/22 1129 [facility] Work Phone: [phone]) 321-358302-17-2023 Progress note Author Cade Alvarez [facility] August 13, 2022 9:40am Note Date/Time August 13, 2022 9:35am [facility] [address] [place] [address] Cardiology Progress Note Signed Patient: Victorino Smyth MR#: [id number] : 1940 Acct:[id number] Age/Sex: 82 / M Adm Date: 3 Loc: Room: [address] [place] [address] Type: ADM IN Attending Dr: Hiral Interiano [...] MPV Neut % (Auto) Lymph % (Auto) [place] % (Auto) Eos % (Auto) Baso % (Auto) Nucleat RBC Rel Count Neut # (Auto) Lymph # (Auto) [place] # (Auto) Eos # (Auto) Baso # [...] RNA (PCR) IU/mL N/A HCV RNA PCR certified endoscopy technician log10 N/A Hepatitis C Interp 08/12/22 08/12/22 08/13/22 19:37 21:06 04:28 Corrected WBC 9.9 Uncorrected WBC Count 9.9 RBC 3.54 L Hgb 11.6 L Hct 34.2 L MCV 96.5 MCH 32.9 MCHC 34.1 RDW 13.7 Plt Count 129 L MPV 8.7 Neut % (Auto) 79.2 Lymph % (Auto) 9.6 [place] % (Auto) 9.8 Eos % (Auto) 0.9 Baso % (Auto) 0.5 Nucleat RBC Rel Count 0.1 Neut # (Auto) 7.8 H Lymph # (Auto) 0.[address] [place] # (Auto) 1.0 H Eos # (Auto) [...] HCV RNA (PCR) IU/mL HCV RNA PCR certified endoscopy technician log10 Hepatitis C Interp 08/13/22 08/13/22 04:28 05:25 Corrected WBC Uncorrected WBC Count RBC Hgb Hct MCV MCH MCHC RDW Plt Count MPV Neut % (Auto) Lymph % (Auto) [place] % (Auto) Eos % (Auto) Baso % (Auto) Nucleat RBC Rel Count Neut # (Auto) Lymph # (Auto) [place] # (Auto) Eos # (Auto) Baso # [...] HCV RNA (PCR) IU/mL HCV RNA PCR certified endoscopy technician log10 Hepatitis C Interp A&P - Cardiology [...] Code(s): I25.10 - Atherosclerotic heart disease of [place] coronary artery without angina pectoris Status: Acute Plan: Preoperative recommendations as above. Plan Thank you very much for this kind consultation and for allowing us to participate in the care of this very pleasant patient Time spent with patient Time Spent With Patient (min): 30 Documented By: Cade Alvarez MD 08/13/22 0934 Signed By: <Electronically signed by Cade Alvarez MD> 08/13/22 0940 [facility] Work Phone: [phone]) [phone] Progress note Author Hiral Interiano [facility] August 12, 2022 4:04pm Note Date/Time August 12, 2022 4:04pm [facility] [address] [place] [address] Hospitalist Progress Note Signed Patient: Victorino Smyth MR#: [id number] : 1940 Acct:[id number] Age/Sex: 82 / M Adm Date: 3 Loc: Room: [address] [place] [address] Type: ADM IN Attending Dr: Hiral Interiano [...] Insuln.Pen SUBCUT 08/11/23 16:59 Not Given TID.WM.HS [facility] Protocol Metoprolol Tartrate 50 mg [...] kidney disease: Plan: Patient was transferred from [place] ER when found to have acute kidney [...] <Electronically signed by Hiral Interiano MD> 08/12/22 0976 [facility] Work Phone: [phone] Progress note Author Alicia Perea [facility] August 12, 2022 11:29am Note Date/Time August 12, 2022 11:24am [facility] [address] [place] [address] Nephrology Progress Note Signed Patient: Victorino Smyth MR#: [id number] : 1940 Acct:[id number] Age/Sex: 82 / M Adm Date: 3 Loc: Room: [address] [place] [address] Type: ADM IN Attending Dr: Hiral Interiano MD Copies to: ~ Date of Service: 08/12/2022 Subjective Subjective Narrative: This is a 82-year-old male with a medical history of coronary artery disease s/pPCI, nephrolithiasis, CKD, diabetes mellitus, hypertension, dyslipidemia was presented to the emergency room of [facility] for generalized weakness and low urine output. On evaluation emergency room patient was found to have a life- threatening hyperkalemia with serum potassium 7 mmol/L, acute kidney injurywith elevated serum creatinine 17.8 mg/dL, metabolic acidosis serum bicarbonate 13.5 mmol/L. He was given insulin D50 calcium gluconate in the [place] emergency room. He had a CAT scan abdomen pelvis done which showed obstructive kidney stones in the right UPJ and total atrophy of the left kidney. Case was discussed with the on-call urologist Dr. Olivares and recommended patient needs to be n.p.o. for surgical intervention. He was transferred to [facility] for further care. Patient is history of CKD due to the longstanding DM, HTN and recurrent KELSEA with baseline serum creatinine 1.4 to 1.6 mg/dL. He follows in my office for his CKD care. Patient after arrival at the [facility] hada repeat labs done which showed [...] visible mass Skin: No rashes or bruises [employer]: Awake,Alert, following simple command Musculoskeletal: No joint [...] 50 mls @ 100 mls/hr IV Q24H [facility] Last Infusion: 08/11/22 21:49 Dose: Infused Azithromycin (Zithromax) 500 mg in 250 mls @ 250 mls/hr IV Q24H [facility] Last Admin: 08/11/22 16:00 Dose: 250 mls/hr Sodium Chloride (0.9% Sodium Chloride 1,000 Ml) 1,000 mls @ 0 mls/hr MISCELLANE.Q0M PRN PRN Reason: Dialysis Stop: 08/11/23 14:19 Last Admin: 08/12/22 10:24 Dose: 999 mls/hr Insulin Aspart (Insulin Aspart 300 Units/3 Ml Insuln.Pen) 0 units SUBCUT TID.[facility]; Protocol Stop: 08/11/23 16:59 Last Admin: 08/12/22 08:07 Dose: Not Given Metoprolol Tartrate (Metoprolol Tartrate 50 Mg Tablet) 50 mg PO BID [facility] Stop: 08/11/23 20:59 Last Admin: [...] Rehan Fuentes M.D.08/11/2022 4:10 PM Dictation Location: [place] [address] Any impression(s) listed above is documentation that [...] signed by Alicia Perea MD> 08/12/22 1129 [facility] Work Phone: [phone] Progress note Author Cade Alvarez [facility] August 12, 2022 10:04am Note Date/Time August 12, 2022 10:05am [facility] [address] [place] [address] Cardiology Progress Note Signed Patient: Victorino Smyth MR#: [id number] : 1940 Acct:[id number] Age/Sex: 82 / M Adm Date: 3 Loc: Room: [address] [place] [address] Type: ADM IN Attending Dr: Hiral Interiano [...] % (Auto) N/A Lymph % (Auto) N/A [place] % (Auto) N/A Eos % (Auto) N/A Baso % (Auto) N/A Nucleat RBC Rel Count N/A Neut # (Auto) N/A Lymph # (Auto) N/A [place] # (Auto) N/A Eos # (Auto) N/A [...] MPV Neut % (Auto) Lymph % (Auto) [place] % (Auto) Eos % (Auto) Baso % (Auto) Nucleat RBC Rel Count Neut # (Auto) Lymph # (Auto) [place] # (Auto) Eos # (Auto) Baso # [...] MPV Neut % (Auto) Lymph % (Auto) [place] % (Auto) Eos % (Auto) Baso % (Auto) Nucleat RBC Rel Count Neut # (Auto) Lymph # (Auto) [place] # (Auto) Eos # (Auto) Baso # [...] % (Auto) 88.0 Lymph % (Auto) 4.4 [place] % (Auto) 7.4 Eos % (Auto) 0.0 Baso % (Auto) 0.2 Nucleat RBC Rel Count 0.0 Neut # (Auto) 11.8 H Lymph # (Auto) 0.[address] [place] # (Auto) 1.0 H Eos # (Auto) [...] MPV Neut % (Auto) Lymph % (Auto) [place] % (Auto) Eos % (Auto) Baso % (Auto) Nucleat RBC Rel Count Neut # (Auto) Lymph # (Auto) [place] # (Auto) Eos # (Auto) Baso # [...] Code(s): I25.10 - Atherosclerotic heart disease of [place] coronary artery without angina pectoris Status: Acute Plan: Preoperative recommendations as above. Plan Thank you very much for this kind consultation and for allowing us to participate in the care of this very pleasant patient Time spent with patient Time Spent With Patient (min): 30 Documented By: Cade Alvarez MD 08/12/22 0959 Signed By: <Electronically signed by Cade Alvarez MD> 08/12/22 1005 [facility] Work Phone: [phone] Consult note Author Alicia Perea [facility] August 11, 2022 5:46pm Note Date/Time August 11, 2022 4:00pm [facility] [address] [place] [address] Nephrology Consult Note Signed with Nancy Patient: Victorino Smyth MR#: [id number] : 1940 Acct:[id number] Age/Sex: 82 / M Adm Date: 3 Loc: Room: [address] [place] [address] Type: ADM IN Attending Dr: Hiral Interiano [...] was presented to the emergency room of [facility] for generalized weakness and low urine output. On evaluation emergency room patient was found to have a life- threatening hyperkalemia with serum potassium 7 mmol/L, acute kidney injurywith elevated serum creatinine 17.8 mg/dL, metabolic acidosis serum bicarbonate 13.5 mmol/L. He was given insulin D50 calcium gluconate in the [place] emergency room. He had a CAT scan abdomen pelvis done which showed obstructive kidney stones in the right UPJ and total atrophy of the left kidney. Case was discussed with the on-call urologist Dr. Olivares and recommended patient needs to be n.p.o. for surgical intervention. He was transferred to [facility] for further care. Patient is history of CKD due to the longstanding DM, HTN and recurrent KELSEA with baseline serum creatinine 1.4 to 1.6 mg/dL. He follows in my office for his CKD care. Patient after arrival at the [facility] hada repeat labs done which showed [...] 81 Mg Tablet.Dr) 81 mg PO DAILY [facility] Stop: 08/12/23 08:59 Atorvastatin Calcium (Atorvastatin 40 Mg Tablet) 40 mg PO HS [facility] Stop: 08/11/23 21:59 Dextrose (Dextrose [...] 50 mls @ 100 mls/hr IV Q24H [facility] Azithromycin (Zithromax) 500 mg in 250 mls @ 250 mls/hr IV Q24H [facility] Sodium Chloride (0.9% Sodium Chloride 1,000 Ml) 1,000 mls @ 0 mls/hr MISCELLANE .Q0M PRN PRN Reason: Dialysis Stop: 08/11/23 14:19 Insulin Aspart (Insulin Aspart 300 Units/3 Ml Insuln.Pen) 0 units SUBCUT TID.[facility]; Protocol Stop: 08/11/23 16:59 Metoprolol Tartrate (Metoprolol Tartrate 50 Mg Tablet) 50 mg PO BID [facility] Stop: 08/11/23 20:59 Nitroglycerin (Nitroglycerin [...] visible mass Skin: No rashes or bruises [employer]: Awake,Alert, following simple command Musculoskeletal: No joint [...] Patient consented for dialysis. I consulted the field case manager for hemodialysis catheter placement which was placed [...] team. Documented By: Alicia Perea MD 08/11/22 8243 Signed By: <Electronically signed by Alicia Perea MD> 08/11/22 8101 [facility] Work Phone: [phone]) 541-974702-15-2023 Consult note Author Cade Alvarez [facility] August 11, 2022 4:47pm Note Date/Time August 11, 2022 4:36pm [facility] [address] [place] [address] Cardiology Consult Note Signed Patient: Victorino Smyth MR#: [id number] : 1940 Acct:[id number] Age/Sex: 82 / M Adm Date: 3 Loc: Room: [address] [place] [address] Type: ADM IN Attending Dr: Hiral Interiano [...] syndrome in 2017. Patient initially presented to [place] emergency department complaining of shortness of breath [...] # (Auto) N/A Lymph # (Auto) N/A [place] # (Auto) N/A Eos # (Auto) N/A [...] nonspecific abnormality, ST segment, and/or T wave WA, pacemaker, normal Normal tracing: no change compared [...] Code(s): I25.10 - Atherosclerotic heart disease of [place] coronary artery without angina pectoris Plan Thank you very much for this kind consultation and for allowing us to participate in the care of this very pleasant patient Documented By: Cade Alvarez MD 08/11/22 1634 Signed By: <Electronically signed by Cade Alvarez MD> 08/11/22 1647 [facility] Work Phone: [phone]) 446-662902-15-2023 Consult note Author Ni Olivares [facility] August 11, 2022 3:24pm Note Date/Time August 11, 2022 3:24pm [facility] [address] [place] [address] Urology Consult Note Signed Patient: Victorino Smyth MR#: [id number] : 1940 Acct:[id number] Age/Sex: 82 / M Adm Date: 3 Loc: Room: [address] [place] [address] Type: ADM IN Attending Dr: Hiral Interiano MD Copies to: MD Ni James MD Mazhar Rahman, MD~ History of Present Illness Consult Details Consult Date: 08/11/2022 Requesting Provider: Hiral Interiano MD HPI: Mr. Smyth is an 82-year-old man transferred from the [facility] earliertoday. The patient presented with some diffuse [...] the emergency room prior to transfer to [facility]. He finished breakfast at about 11 AM. [...] % (Auto) N/A, Lymph % (Auto) N/A, [place] % (Auto) N/A, Eos % (Auto) N/A, Baso % (Auto) N/A, Nucleat RBC Rel Count N/A, Neut # (Auto) N/A, Lymph # (Auto) N/A, [place] # (Auto) N/A, Eos # (Auto) N/A, [...] actually worse than that noted at the [facility] at a current level of 7.4. Due [...] indicated. Documented By: Ni Olivares MD 08/11/22 1518 Signed By: <Electronically signed by MD Ni Olivares> 08/11/22 5179 [facility] Work Phone: 1(632) 520-287302-15-2023 History and physical note Author Hiral Interiano [facility] August 11, 2022 2:02pm Note Date/Time August 11, 2022 2:02pm [facility] [address] [place] [address] Hospitalist H&P Signed Patient: Victorino Smyth MR#: [id number] : 1940 Acct:[id number] Age/Sex: 82 / M Adm Date: 02/15/2 3 Loc: Room: 0N3386-0 Type: ADM IN Attending Dr: Hiral Interiano [...] of nephrolithiasis. Patient has been transferred from [facility] ER for acute kidney injury and obstructing [...] repeated labs available in the record from [facility]. Chest x-ray read as mild bilateral lower [...] a similar feeling when he had an WA in 2017 and prior to that in [...] unless noted below or in HPI [facility] Medical History (Updated 08/11/22 @ 13:59 by [...] type 2. He has been transferred from [place] ER for obstructive uropathy with worsening renal failure and hyperkalemia. I was informed the patient was given cocktail for hyperkalemia with no repeated labs available in the record. Patient arrival to floor complaining of midsternal discomfort and mentioned having similar feeling when he had an WA. Does appear tachypneic likely from metabolic acidosis. [...] signed by Hiral Interiano MD> 08/11/22 1402 [facility] Work Phone: [phone]) 124-803102-15-2023 [facility]* Encounter Date Diagnosis Assessment Notes Treatment Notes Treatment Clinical Notes May, Diabetes mellitus wi th chronic kidney disease (ICD-10 - E11.22) He has acx-nrkbzbb-fdub ndent type 2 diabetes and currently takes [...] have advised him to adequately hydrate himself. [employer] Other 08-11-2022 NotePROCEDURE: XR KNEE LT 4V or > COMPARISON: None. HISTORY: Pain of left knee joint FINDINGS: BONES:No acute fracture or dislocation. Minimal degenerative changes. SOFT TISSUES:Negative. No visible soft tissue swelling. EFFUSION:None visible. OTHER: Vascular calcification IMPRESSION: No acute abnormality Electronically authenticated by: TYLER MONSIVAIS Date: 2022-02-04 07:23[facility]05-31-2022 Evaluation note* Encounter Date Diagnosis Assessment Notes Treatment Notes Treatment Clinical Notes October, Diabetes mellitus wi th chronic kidney disease (ICD-10 - E11.22) He has bva-grqcbio-zcujf dent type 2 diabetes and currently takes [...] have advised him to adequately hydrate himself. [employer] Other 05-02-2022 Hospital Discharge instructions Follow Up Care 10/26/2021 10:06:54 With:KADE OLIVEROS, Milton Brewer, URL Address: [address] [place] [address]- When: Unknown [facility] 05-02-2022 Hospital Discharge instructions [...] 06/13/2006 Document Revised: 03/02/2019 Document Reviewed: 05/13/2017 [employer] Patient Education 2020 [employer]. 10/26/2021 09:44:44 Urinary Frequency, Adult Urinary Frequency, [...] to keep your urine pale yellow. ?Take rfry-wcv-nhqtakv or prescription medicines. ?Eat foods that are high in fiber, such as beans, whole grains, and fresh fruits and vegetables. ?Limit foods that are high in fat and processed sugars, such as fried or sweet foods. General instructions Take rczu-mdy-ppwccpn and prescription medicines only as told by [...] the muscles that help control urination. Take jyuh-fwe-xcdmybn and prescription medicines only as told by your health care provider. Contact a health care provider if your symptoms do not improve or get worse. This information is not intended to replace advice given to you by your health care provider. Make sure you discuss any questions you have with your health care provider. Document Released: 04/09/2010 Document Revised: 12/21/2018 Document Reviewed: 12/21/2018 [employer] Patient Education 2020 [employer]. 10/26/2021 09:44:41 Kidney Stones, Opml-ii-Eepj Kidney Stones Kidney stones are rock-like masses [...] Follow these instructions at home: Medicines Take tvhk-jti-xxoulej and prescription medicines only as told by [...] 11/29/2008 Document Revised: 10/30/2019 Document Reviewed: 10/30/2019 [employer] Patient Education 2019 [employer]. Follow Up Care 02/23/2021 14:09:11 With:KADE OLIVEROS, Milton Brewer, SUEL Address: [facility] [address], [place] [address]- When:10/26/2022 [facility] 11-30-2021 Evaluation note* Encounter Date Diagnosis Assessment Notes Treatment Notes Treatment Clinical Notes Apr, Diabetes mellitus wi th chronic kidney disease (ICD-10 - E11.22) He has nmb-pjpezlj-orsvq dent type 2 diabetes and currently takes [...] have advised him to adequately hydrate himself. [employer] Other Evaluation + Plan note Future Appointments Appointment Date:10/29/2022 08:45:00 AM Scheduled Provider:Milton BRAUN MD Location:[facility] Appointment Type:URO Office Visit [facility] evaluation + Plan note Future Appointments Appointment Date:09/14/2022 07:30:00 AM Scheduled Provider: Location:[facility] Appointment Type:Surgical PAT FT Appointment Date:10/07/2022 12:00:00 PM Scheduled Provider: Location:[facility] Appointment Type:Surgery FT Appointment Date:10/29/2022 08:45:00 AM Scheduled Provider:Milton BRAUN MD Location:[facility] Appointment Type:URO Office Visit [facility] Evaluation + Plan note Future Appointments Appointment Date:11/18/2022 10:30:00 AM Scheduled Provider: Location:[facility] Appointment Type:Surgical PAT FT Appointment Date:12/02/2022 11:45:00 AM Scheduled Provider: Location:[facility] Appointment Type:Surgery FT [facility] evaluation + Plan note Future Appointments Appointment Date:06/12/2024 11:00:00 AM Scheduled Provider:Ni OLIVARES MD Location:[facility] Appointment Type:URO Office Visit Future Scheduled Tests Laboratory* Total Protein 24 Hour Urine 02/14/23 [facility] Evaluation note* Diagnosis Onset Date Resolution Status Acute kidney injury superimp osed on chronic kidney disease acute Acute kidney insufficiency a cute CAD (coronary artery disease) acute CKD (chronic kidney disease) stage 3, GFR 30-59 ml/min acute Elevated PSA acute Hydronephrosis with ureteral calculus acute Hyperkalemia acute [id number] acute Left renal atrophy acute Metabolic acidosis acute Obstructive nephropathy acut e Preoperative cardiovascular examination acute Right ureteral stone acute 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 Diabetes chronic [facility] Work Phone: Evaluation noteNo assessment information available [facility] Work Phone: Hisvwwm general Narrative - Reported* Type Description Date Medical History DIABETES MELLITUS Medical History CORONARY ARTERY DISEASE Medical History MORBID OSESITY Surgical History HERNEA LOWER RIGHT ABDOMINAL Surgical History HEART ATTACK WITH STENT PLACEME NT IN THE LAD Surgical History KIDNEY STENTS X 2 Surgical History PROSTRATE BIO PAD Surgical History KIDNEY STENTS X2 Surgical History KIDNEY STONE REMOVAL Hospitalization History SEE ABOVE [employer] Other Hisnlfu general Narrative - Reported* Type Description Date [...] KIDNEY STONE REMOVAL Hospitalization History SEE ABOVE [employer] Other History general Narrative - Reported* Type [...] KIDNEY STONE REMOVAL Hospitalization History SEE ABOVE [employer] Other Hisbwmg general Narrative - Reported* Type Description Date [...] History KELSEA, HYPERKALEMIA, METAB OLIC ACIDOSIS 08/11/2022 [employer] Other Hospital course Narrative No data available for this section [facility] Hospital Discharge instructions Additional Instructions Follow-up with your Primary It Help Desk Technician in 4 weeks. Avoid NSAIDs for pain control. Call [facility] Scheduling on Tuesday at [phone] to arrange a follow up CT scan regarding lung nodule in 4 weeks. Maintain occlussive dressing to HD catheter removal site for 48 hours - return to the Emergency Room for oozing or drainage from catheter exit site, noticeable swelling or itching around neck, shortness of breath, [facility] Work Phone: Progress note No data available for this section [facility] Chief Complaint and Reason for Visit Chief Complaint ACUTE RENAL FAILURE Reason for Visit Acute kidney injury superimposed on chronic kidney disease Acute kidney insufficiency CAD (coronary artery disease) CKD (chronic kidney disease) stage 3, GFR 30-59 ml/min Elevated PSA Hydronephrosis with ureteral calculus Hyperkalemia [id number] Left renal atrophy Metabolic acidosis Obstructive nephropathy [...] Kiser MD Other Provider Active Jen Tamayo [facility]- Other Provider Active Aaliyah Mitchell MD [...] section and content) DATE CREATED AUTHOR 10/03/2022 [facility] DATE CREATED AUTHOR AUTHOR'S ORGANIZ ATION 12/07/2022 Coreen bran DATE CREATED AUTHOR AUTHOR'S ORGANIZ ATION 01/27/2023 [facility] DATE CREATED AUTHOR AUTHOR'S ORGANIZ ATION 07/05/2023 [facility] DATE CREATED AUTHOR AUTHOR'S ORGANIZ ATION 07/07/2023 [facility] Goals (unrecognized section and content) Goals [...] BE BASED ON THE PRIMARY CLINICAL RECORDS. [employer] provides no warranty or guarantee of the accuracy or completeness of information in this document.
--- NOTE | 2023-07-19 14:27 | ED.ABDPAIN1 ---
HPI - Abdominal Pain General Chief Complaint: Abdominal Pain Stated Complaint: ABD PAIN Time Seen by Provider: 07/19/23 13:46 Source: patient and family Mode of arrival: ambulance Limitations: no limitations History of Present Illness HPI narrative: Patient developed right lower abdominal pain 3 days ago and saw his PCP in the office today. He was sent to the hospital to get out-patient labs and CT - done with oral contrast only because of CKD. The patient is a non insulin dependent diabetic and barely ate today, so he was found to be hypoglycemia on testing and was sent to our ED after the CT was obtained. He received orange juice and hard candy in radiology and recheck of glucose was 56 after being 36 on blood testing. He was given IV D50 on arrival to the ED. Patient admitted to normal urination and BM, no fever or chills, pain in RLQ worsened since onset. No flank pain, vomiting but had some diarrhea. Related Data Home Medications Medication Instructions Recorded Confirmed albuterol sulfate 90 mcg/actuation 1 inh inhalation Q6H PRN shortness 07/19/23 07/19/23 aerosol inhaler of breath or wheezing amlodipine 10 mg tablet 10 mg PO DAILY 07/19/23 07/19/23 aspirin 81 mg capsule 81 mg PO DAILY 07/19/23 07/19/23 atorvastatin 80 mg tablet 80 mg PO DAILY 07/19/23 07/19/23 glimepiride 4 mg tablet 4 mg PO BID 07/19/23 07/19/23 wbkgainumow-ylgoruastb-xcy-calcium-155herb tab PO 07/19/23 375 mg-150 mg-125 mg tablet hyoscyamine sulfate 0.125 mg 0.125 mg PO DAILY 07/19/23 07/19/23 tablet (Levsin) isosorbide mononitrate 60 mg 120 mg PO DAILY 07/19/23 07/19/23 tablet,extended release 24 hr ketoconazole 2 % topical cream applic topical DAILY 07/19/23 levothyroxine 50 mcg tablet 50 mcg PO DAILY 07/19/23 07/19/23 liothyronine 5 mcg tablet 5 mcg PO DAILY 07/19/23 07/19/23 lisinopril 20 mg tablet 20 mg PO DAILY 07/19/23 07/19/23 metoprolol tartrate 50 mg tablet 50 mg PO Q12H 07/19/23 07/19/23 nitroglycerin 0.4 mg sublingual 0.4 mg sublingual Q5M PRN chest 07/19/23 07/19/23 tablet pain pioglitazone 15 mg tablet 15 mg PO DAILY 07/19/23 07/19/23 ranolazine 500 mg tablet,extended 500 mg PO Q12H 07/19/23 07/19/23 release,12 hr sitagliptin phosphate 100 mg 100 mg PO DAILY 07/19/23 07/19/23 tablet (Januvia) tiotropium bromide 2.5 2 inh inhalation Q24H 07/19/23 07/19/23 mcg/actuation mist for inhalation (Spiriva Respimat) Allergies Allergy/AdvReac Type Severity Reaction Status Date / Time ciprofloxacin [From Cipro] AdvReac Intermediate Verified 07/19/23 13:49 Penicillins AdvReac Intermediate Verified 07/19/23 13:49 PFSH PFSH Social History Smoking status: Former smoker Exam Constitutional Vital Signs, click to edit/add: Last Vital Signs Temp 98.2 F 07/19/23 13:49 Pulse 95 H 07/19/23 13:49 Resp 18 07/19/23 13:49 BP 139/52 07/19/23 13:49 Pulse Ox 98 07/19/23 13:49 Course Vital Signs Vital signs: Vital Signs Temperature 98.2 F 07/19/23 13:49 Pulse Rate 95 H 07/19/23 13:49 Respiratory Rate 18 07/19/23 13:49 Blood Pressure 139/52 07/19/23 13:49 Pulse Oximetry 98 07/19/23 13:49 Temperature 98.2 F 07/19/23 13:49 Pulse Rate 95 H 07/19/23 13:49 Respiratory Rate 18 07/19/23 13:49 Blood Pressure 139/52 07/19/23 13:49 Pulse Oximetry 98 07/19/23 13:49 MDM - Abdominal Pain MDM Narrative Medical decision making narrative: Patient was found to have acute appendicitis with elevated WBC. The patient and were informed and the on-call surgeon was notified. Patient given IV Invanz and the surgeon looked at the CT scan to evaluate for surgery - he said he will meet with the patient and take him to surgery. Case discussed with Dr Russ, amanda for [facility], and he will admit the patient to medsug, obs. Lab Data Attestation: I reviewed the patient's lab results. Labs: Lab Results 07/19/23 07/19/23 Range/Units 13:49 14:30 POC Glucose 68 L 153 H (74-106) mg/dL Imaging Data CT scan - abdomen: Radiologist's impression: IMPRESSION: Acute appendicitis with underlying appendicoliths Electronically authenticated by: TYLER MONSIVAIS Date: 07/19/2023 14:00 Discharge Plan Discharge Chief Complaint: Abdominal Pain Clinical Impression: Acute appendicitis Patient Disposition: Admitted as Observation Time of Disposition Decision: 14:40 Additional Instructions: patient is to undergo surgical evaluation with plan for appendectomy.
[2023-07-19 14:32] LABS: Glucometer 153 mg/dL (74-106)
[2023-07-19] MEDS: ERTAPENEM SODIUM 1 GM in 0.9 % SODIUM CHLORIDE 50 ML IV (14:51)
--- OUTSIDE RECORDS SUMMARY | 2023-07-19 15:48 | XMS_ITS | CCD ---
Author Name Unknown Address [address] [place] [address] Organization [facility] Care Team Providers Care Liquor Store Manager Name Role Phone Tray Alfaro Primary Care Physician Alicia Perea Unavailable MD Tray Alfaro Primary Care Provider MD Hiral Interiano Admit Provider MD Hiral Interiano Attending Provider ALISHA [facility] Other Provider Unavailable DO Lizzy Lin Other [...] Other Provider MD Ni Olivares Other Provider MD Yogesh Omalley Other Provider MD Kiran Eldridge Jr Other Provider MD Fátima Ivey Other Provider MD Shaquille [...] Unavailable MD Tray Alfaro Primary Care Provider [phone] MD Ni Olivares Attending Provider Ni OLIVARES P Referring Unavailable COOKRidgeNi P [...] Unavailable Joel Larkin Consulting Unavail able Isidro oDw Consulting Unavailable Peter Manuel Consulting Unavailab Pauline [...] Eruption of skin (disorder) [facility] (13 sources) Penicillin; Translations: [penicillin] Drug Allergy Eruption of skin (disorder) Tamr Other (6 sources) Ciprofloxacin Drug Allergy Unknown [facility] Other (7 sources) Penicillins; Translations: [Penicillins] Allergy to substance 06-14-20 14 [facility] (1 source) Ciprofloxacin Drug Allergy 09-14-20 20 [facility] Repository (3 sources) levothyroxine; Translations: [levothyroxine] Drug Allergy Swelling of oral cavity structure (finding) [facility] (3 sources) liothyronine; Translations: [liothyronine] Drug Allergy Swelling of oral cavity structure (finding) [facility] (1 source) No Known Medication Allergies; Translations: [No Known Medication Allergies] Propensity to adverse reactions (disorder) [facility] Repository (1 source) Ciprofloxacin Drug Allergy 08-13-19 [facility] Repository Medications Current Medications Medication Drug Class(es) Dates Sig (Normalized) Sig (Original) acetaminophen 325 mg / HYDROcodone bitartrate 5 mg oral tablet (1 source) Opioid Agonist Start: 10-07-2022 End: 10-09-2022 acetaminophen-hyd rocodone 325 mg-5 mg oral tablet 1 tab(s), Oral, q4hr Pain for 2 day(s), 7 tab(s), Refill(s) 0, [id number], 175, cm, 09/15/22 5:20:00 EDT, Height/Length Dosing, [...] Status: Ordered take 1 capsule by mo [facility] every twenty-four hours Vitamin D3 125 [...] # 2 cap(s), Refills(s) 0, Pharmacy: [id number], 177, cm, 11/18/22 13:54:00 EDT, Height/Length Dosing, [...] activity, # 30 tab(s), Refills(s) 2, [facility], 174, cm, 08/18/20 12:16:00 EST, Height/Length [...] Date: 04/11/19 Status: Ordered 60 actuat tiotropium 0.39066 mg/actuat inhalation spray (11 sources) Anticholinergic Start: [...] Coronary arteriosclerosis; Translations: [Atherosclerotic heart disease of [place] coronary artery without angina pectoris] Onset: 3 [...] Onset: 10-14-2022 Episodic Other aftercare (1 source) 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 Lab Reports [id number]#1.00TIFF Normal [facility] Blood Urea Nitrogenon 2023 Urea nitrogen [Mass/Vol] 31 mg/dL High 7-25 [facility] Comment on above: Performed By: #### L YTES, CA, URIC, PTH, BUN, CREAT ####[facility] [address] [place] [address] [facility] Calciumon 07-02-2023 Calcium [Mass/Vol] 8.8 mg/dL Normal 8.6-10.3 [facility] Comment on above: Performed By: #### L YTES, CA, URIC, PTH, BUN, CREAT ####[facility] [address] [place] [id number] [facility] Calcium [Mass/volume] in Ser um or PlasmaOrdered By: Ni Olivares on 07-02-2023 Calcium [Mass/Vol] 8.8 mg/dL 8.6-10.3 [facility] Carbon dioxide, total [Moles /volume] in Serum or PlasmaOrdered By: Ni Olivares on 07-02-2023 CO2 [Moles/Vol] 24.0 mmol/L 21.0-31.0 [facility] Chloride [Moles/volume] in S paty or PlasmaOrdered By: Ni Olivares on 07-02-2023 Chloride [Moles/Vol] 107 mmol/L 98-107 [facility] Creatinineon 07-02-2023 Creatinine [Mass/Vol] 2.05 mg/dL High 0.70-1.30 [facility] Comment on above: Performed By: #### L YTES, CA, URIC, PTH, BUN, CREAT ####[place] [address] [place] [address] [place] GFR/1.73 sq M.predicted MDRD (S/P/Bld) [Vol rate/Area] 32.151 mL/min/{1.73_m2} Normal [facility] Comment on above: Performed By: #### L YTES, CA, URIC, PTH, BUN, CREAT ####[place] [address] [place] [address] [facility] Creatinine [Mass/volume] in Serum or PlasmaOrdered By: Ni Olivares on 07-02-2023 Creatinine [Mass/Vol] 2.05 mg/dL 0.70-1.30 [facility] Electrolyteson 07-02-2023 Anion gap [Moles/Vol] 12.0 mmol/L Normal 6.0-15.0 [facility] Comment on above: Performed By: #### L YTES, CA, URIC, PTH, BUN, CREAT ####[address] [address] [facility] Chloride [Moles/Vol] 107 mmol/L Normal 98-107 [facility] Comment on above: Performed By: #### L YTES, CA, URIC, PTH, BUN, CREAT ####[address] [address] [place] [address] [place] CO2 [Moles/Vol] 24.0 mmol/L Normal 21.0-31.0 [facility] Comment on above: Performed By: #### L YTES, CA, URIC, PTH, BUN, CREAT ####[address] [address] [facility] Potassium [Moles/Vol] 5.0 mmol/L Normal 3.5-5.1 [facility] Comment on above: Performed By: #### L YTES, CA, URIC, PTH, BUN, CREAT ####[facility] [place] [address] [facility] Sodium [Moles/Vol] 138 mmol/L Normal 136-145 [facility] Comment on above: Performed By: #### L YTES, CA, URIC, PTH, BUN, CREAT ####[address] [place] [address] [facility] No Panel InformationOrdered By: Ni Olivares [...] on above: Result Comment: PERF ORMED BY: [facility] [address] [place] [id number] PATHOLOGIST [employer] SCOUT DIANDRA LACY M.D. Performed By: #### L YTES, CA, URIC, PTH, BUN, CREAT ####[place] [address] [place] [address] [facility] Potassium [Moles/volume] in Serum or PlasmaOrdered By: Ni Olivares on 07-02-2023 Potassium [Moles/Vol] 5.0 mmol/L 3.5-5.1 [facility] Serum or plasma anion gap de terminationOrdered By: Ni Olivares on 07-02-2023 Anion gap [Moles/Vol] 12.0 mmol/L 6.0-15.0 [facility] Sodium [Moles/volume] in Ser um or PlasmaOrdered By: Ni Olivares on 07-02-2023 Sodium [Moles/Vol] 138 mmol/L 136-145 [facility] Urate [Mass/volume] in Serum or PlasmaOrdered By: Ni Olivares on 07-02-2023 Urate [Mass/Vol] 8.2 mg/dL 4.4-7.6 [facility] Urea nitrogen [Mass/volume] in Serum or PlasmaOrdered By: Ni Olivares on 07-02-2023 Urea nitrogen [Mass/Vol] 31 mg/dL 7-25 [facility] Uric Acidon 07-02-2023 Urate [Mass/Vol] 8.2 mg/dL High 4.4-7.6 [facility] Comment on above: Result Comment: PERF ORMED BY: [facility] [address] [place] [id number] PATHOLOGIST [employer] SCOUT DIANDRA LACY M.D. Performed By: #### L YTES, CA, URIC, PTH, BUN, CREAT ####[place] [place] [address] [facility] Lab Reportson 07-01-2023 Lab Reports [id number]#1.00TIFF Normal [facility] PSA Total (Not a Screen)on 0 06-28-2023 PSA Total (Not a Screen) 4.730 ng/mL High 0.000-4.00 0 [facility] Comment on above: Result Comment: Seri al tumor marker results determined by assays using different manufacturers or methods may not be comparable. [facility] cigar packer and picker and method: TaxiBeat DXI, CHEMILUMINESCENT IMMUNOASSAY. PERFORMED BY: [facility] [address] [place] [address] PATHOLOGIST [employer] SCOUT DIANDRA LACY M.D. Performed By: #### P SATOTAL ####[address] [place] [address] [facility] Prostate specific Ag [Mass/v olume] in Serum or PlasmaOrdered By: Ni Olivares on 06-28-2023 Prostate specific Ag [Mass/Vol] 4.730 ng/mL 0.000-4.00 0 [facility] Comment on above: Serial tumor marker results determined by assays using different manufacturers or methods may not be comparable.[facility] cigar packer and picker and method:[employer]Beat DXI, CHEMILUMINESCENT IMMUNOASSAY. RAD - Ultrasound Reporton RAD - Ultrasound Report [id number]#1.00TIFF Normal [facility] Lab Reportson 06-16-2023 Lab Reports [id number]#1.00TIFF Normal [facility] Lab Reports [id number]#1.00TIFF Normal [facility] Lab Reports [id number]#1.00TIFF Normal [facility] Screenson 06-16-2023 Screens [id number]#1.00TIFF Normal [facility] US renal BIon 06-16-2023 US renal BI [facility] [place] [address] Ultrasound Report Signed Patient: Victorino Smyth MR#: [id number] : 1940 Acct:[id number] Age/Sex: 82 / M ADM Date: 06/16/23 Loc: Room: Type: [facility] Attending Dr: Ni Olivares MD Ordering Provider: [...] Rehan Fuentes M.D.06/16/2023 4:02 PM Dictation Location: [place] [address] Tech: Sue Chiu Transcribed By: [facility] 06/16/23 1602 Dictated By: Rehan Fuentes DO 06/16/23 1552 Signed By: 06/16/23 1602 [facility] Ambulatory Visit Summaryon 1 08-15-2022 Ambulatory Visit Summary VICTORINO SMYTH :1940 Visit Date:06/14/2023 Ambulatory Visit Instructions Your Diagnosis Kidney stone BPH with urinary obstruction Prostate cancer Tests Performed Urnls Dip Stick Auto w/o Microscopy POC 76869 US Renal -- Results Pending -- Please [...] CARLOS OLIVEROS, BHUPINDER Merritt When: Where: [address] [place] [address]- Medications What How Much When Instructions Unchanged [...] or concerns Unchanged (more content not included)... [facility] Formson 06-14-2023 Forms [id number]#1.00TIFF [facility] Patient Educationon 06-14-20 23 Patient Education [...] ? 8 oz (237 mL) of milk, xhgdrea-aprfyfudxtci-wvuwm milk, and calcium-fortifiedfruit juice. Calcium-fortified means that [...] Spinach (cooked), rhubarb, beets, sweet potatoes, and Hong Konger chard. ? Peanuts. ? Potato chips, kuwaiti fries, and baked potatoes with skin on. ? Nuts and nut products. ? Chocolate. ? If you regularly take a diuretic medicine, make sure to eat at least 1 or 2 servings of fruits or vegetables that are high in potassium each day. These include: ? Avocado. ? Banana. ? Breese, prune, carrot, or tomato juice. ? Baked [...] fish oil, or vitamin B6. ? Take owvt-ejr-vblgyod and prescription medicines only as told by your health care provider. These include supplements. What foods sh (more content not included)... Normal [facility] Urology Office/Clinic Noteon 06-14-2023 Urology Office/Clinic Note [...] with voice recognition artificial intelligence software, specifically Redeem, Porphyrio and or WebVisible. Substitutions may have occurred due to the [...] CARLOS OLIVEROS, Ni P, URL [address] [place] [address]- Additional Instructions: 1 year Patient Education [...] Hydronephrosis with uretera (more content not included)... [facility] Comment on above: Result Comment: Elec tronically Signed By: Ni OLIVARES MD\.br\Date and Time Signed: 06/14/23 09:55 EST\.br\Electronically Co-Signed By: Dahiana Joseph\.br\Date and Time Co-Signed: 06/14/23 09:48 EST\.br\Electronically Co-Signed By: Dahiana Joseph\.br\Date and Time Co-Signed: 06/14/23 09:50 EST Office Visiton 01-26-2023 Follow-up visit [id number] Ruben Smyth 1940 M Date Provider Department Center 01/26/2023 JENNIFER SMITH FABIOLA [facility] Family History Problem Relation Age of Onset No Known Problems Mother No Known Problems Father Family Status - Relation Status Age at Mother Father Level of Service:19021 [place] OFFICE/OUTPATIENT ESTABLISHED LOW MDM 20-29 MIN [facility] Consent for Procedure/Surger yon 12-21-2022 Consent for Procedure/Surgery [id number]#1.00CD:[address] [facility] IntraOperative Documentson 0 12-21-2022 IntraOperative Documents [id number]#1.00CD:127 [facility] Consent for Treatmenton 11-26 Consent for Treatment [id number]#1.00CD:127 [facility] Inpatient Patient Summaryon 12-20-2022 Inpatient Patient Summary [place] [id number] Clinical Summary Person Information Name: VICTORINO SMYTH Age: 82 Years : 1940 Sex: Male PCP: Tray Alfaro MD Marital Status: Race: White Ethnicity: Non- or Language: Namibian Visit Id: Visit Reason: RIGHT KIDNEY STONE Speciality: Acuity: Enc Type: Outpatient Med Service: Surgery Arrival: 12/20/2022 15:00:15 Discharge: Dispo Type: Address: [address] [place] [id number] Provider Notes: Diagnosis: Problems Active Flank pain [...] Follow up: With: Address: When: Ni OLIVARES [address] [place] [address], [address], [place] [address] [facility] (1) Within 6 months Comments: Call [...] Cystoscopy with Stent Removal Discharge Instructions (Custom) [facility] Main OR Intraoperative Recor don 12-20-2022 Main OR Intraoperative Record IntraOp Document Type FTURO Summary Primary Physician: Ni OLIVARES MD Finalized Date/Time: 12/20/22 16:29:12 Pt. Name: VICTORINO SMYTH Bryan RuedaB./Sex: 1940 Male Med Rec #: [id number] Physician: Ni OLIVARES MD Financial #: [id number] Pt. Type: O Room/Bed: / Admit/Disch: 12/20/22 [...] Shabnam Garcia Role Performed Surgeon - Primary Car Examiner - Primary Scrub - Primary Time In [...] 16:24 Maggie Menendez RN 12/20/22 16:[address] [facility] Main OR Preoperative Recordo n 12-20-2022 Main OR Preoperative Record Holding Area Document Type FTURO Summary Primary Physician: Ni OLIVARES MD Finalized Date/Time: 12/20/22 15:39:13 Pt. Name: HAJA VICTORINODANYELLE Dubon/Sex: 1940 Male Med Rec #: [id number] Physician: Ni OLIVARES MD Financial #: [id number] Pt. Type: O Room/Bed: / Admit/Disch: 12/20/22 [...] By: Janay Gonzales RN 12/20/22 15:[address] [facility] Operative Reporton Operative Report Patient: SHERYL SMYTH [...] considering a repeat 24-hour urine/metabolic work-up. Normal [facility] Comment on above: Result Comment: Elec tronically Signed By: Ni OLIVARES MD\.br\Date and Time Signed: 12/20/22 16:29 EDT Outpatient Surgery Discharge Instructionon 12-20-2022 Outpatient Surgery Discharge Instruction [place] [id number] Patient Discharge Instructions PERSON INFORMATION Name: VICTORINO [...] With: Address: When: Ni OLIVARES [address], [facility] [address] [place] [phone] [facility] (1) Within 6 months Comments: Call [...] to serve you. Thank you for choosing [facility] Normal [facility] Postoperative Documentson Postoperative Documents [id number]#1.00CD:[address] [facility] Calculus Analysison 12-09-19 23 Color (Stone) Olsen Invalid Interpretation Code [facility] Comment on above: Performed By: #### 2 [id number] #### [facility] Laboratory [address] [place] [address] Composition Comment Invalid Interpretation Code [facility] Comment on above: Result Comment: Perc entage (Represents the % composition) Performed By: #### 2 [id number] #### [facility] [address] [place] [address] Disclaimer: Comment Invalid Interpretation Code [facility] Comment on above: Result Comment: This test was developed and its performance characteristics determined by [facility]. It has not been cleared or approved by the Food and Drug Administration. Performed at: [address] [id number] PhD Jarvis Bauman Performed By: #### 2 [id number] #### [facility] [address] [place] [address] Laboratory comment Dangelo (Report) Comment Invalid Interpretation Code [facility] Comment on above: Result Comment: Padmini gutierrez questions regarding Calculi Analysis contact [facility] at: [phone]. Performed By: #### 2 [id number] #### [facility] [address] [place] [address] Please Note: Comment Invalid Interpretation Code [facility] Comment on above: Result Comment: Calc salazar report will follow via computer, mail or floodplain manager delivery. Performed By: #### 2 [id number] #### [facility] [address] [place] [address] Size (Stone) [Entitic vol] 3x[address] [facility] Comment on above: Result Comment: Mult iple pieces received. Dimensions of the largest piece reported. Performed By: #### 2 [id number] #### [facility] [address] [place] [address] Specimen source subject Nom Comment Invalid Interpretation Code [facility] Comment on above: Result Comment: Righ t Ureter Performed By: #### 2 [id number] #### [facility] [address] [place] [address] Stone Photo Comment Invalid Interpretation Code [facility] Comment on above: Result Comment: Phot ograph will follow under a separate cover Performed By: #### 2 [id number] #### [facility] [address] [place] [address] Urate (Stone) [Mass fraction] 100 % Invalid Interpretation Code [facility] Comment on above: Performed By: #### 2 [id number] #### [facility] [address] [place] [address] Weight (Stone) 131 mg Invalid Interpretation Code [facility] Comment on above: Performed By: #### 2 [id number] #### [facility] [address] [place] [address] Pre-Certification Formon Pre-Certification Form [id number]#1.00CD:127 [facility] IntraOperative Documentson 0 12-06-2022 IntraOperative Documents [id number]#1.00CD:127 [facility] Consent for Anesthesiaon Consent for Anesthesia [id number]#1.00CD:127 [facility] Discharge Instructionson Discharge Instructions [id number]#1.00CD:127 [facility] IntraOperative Documentson 0 12-03-2022 IntraOperative Documents [id number]#1.00CD:127 [facility] IntraOperative Documents [id number]#1.00CD:127 [facility] Main OR Intraoperative Recor don 12-03-2022 Main OR Intraoperative Record [facility] Preoperative Documentson Preoperative Documents [id number]#1.00CD:127 [facility] Preoperative Documents [id number]#1.00CD:127 [facility] Preoperative Documents [id number]#1.00CD:127 [facility] Progress Note-Physicianon Progress Note-Physician Patient: VICTORINO [...] meets criteria ( To home ). Normal [facility] Comment on above: Result Comment: Elec tronically [...] Problems Acute kidney failure / SNOMED CT 00420510 / Confirmed BPH with urinary obstruction / SNOMED CT 2627786981 / Confirmed Chronic obstructive pulmonary disease (COPD) / SNOMED CT 54987995 / Confirmed Coronary artery disease / SNOMED CT 23491274 / Confirmed Anticoagulated / SNOMED CT 862346479 / Confirmed Erectile dysfunction / SNOMED CT 9953799536 / Confirmed Flank pain / SNOMED CT 595364954 / Confirmed H/O: hypothyroidism / SNOMED CT 027345632 / Confirmed Hydronephrosis / SNOMED CT 23876134 / Confirmed Hydronephrosis with ureteral calculus / SNOMED CT 4514284918 / Confirmed Hyperlipidemia / SNOMED CT 36009307 / Confirmed Hyperplastic colon polyp / SNOMED CT 6745163123 / Confirmed Hypertension / SNOMED CT 5916053216 / Confirmed Kidney stone / SNOMED CT 972015725 / Confirmed Prostate cancer / SNOMED CT 9892268291 / Confirmed Myocardial infarct / SNOMED CT 83796914 / Confirmed BPH associated with nocturia / SNOMED CT 6217077926 / Confirmed Occult blood in stools / SNOMED CT 60762511 / Confirmed Postprandial diarrhea / SNOMED CT 58888215 / Confirmed Elevated PSA / SNOMED CT 9850269425 / Confirmed Urinary retention / SNOMED CT 195817548 / Confirmed Rheumatoid arthritis / SNOMED CT 127946943 / Confirmed DM (diabetes mellitus), type 2 / SNOMED CT 976584349 / Confirmed Ureteral stone / SNOMED CT 26118942 / Confirmed Histories Procedure history: ESWL of kidney (62223633) on 10/07/2022 at 82 Years. Transurethral resection of prostate (682266400) on 08/01/2019 at 79 Years. Biopsy of prostate (838474743) on 07/04/2019 at 78 Years. cystoscopy, bilateral, ureteroscopy, laser lithotripsy on 06/27/2019 at 78 Years. TRIGGER FINGER RELEASE. Neuroplasty and/or transposition; median nerve at carpal tunnel (61868). Percutaneous transluminal coronary angioplasty; single major coronary artery or branch (07880). Patient has a coronary artery stent (Peri2) [...] adequate air exchange. Cardiovascular: Regular rhythm. Plan [place] [employer] Anesthesiologists (ASA) physical status classification: Class III. Anesthetic Preoperative Plan: Anesthesia General. Normal [facility] Comment on above: Result Comment: Elec tronically Signed By: Reji Hidalgo DO, Ty Khanna\.br\Date and Time Signed: 12/03/22 08:21 EDT Capillary Glucose POCon Glucose [Mass/Vol] 82 mg/dL Normal 55-99 [facility] Comment on above: Result Comment: Jackelin quach RN/ Performed By: #### 2 [id number] #### [facility] Laboratory [address] [place] [address] Consent for Procedure/Surger yon 12-02-2022 Consent for Procedure/Surgery [id number]#1.00CD:[address] [facility] Consent for Treatmenton Consent for Treatment [id number]#1.00CD:[address] [facility] Discharge Instructionson Discharge Instructions VICTORINO SMYTH :1940 [...] When: Comments: Call for followup appointment Where: [facility] [address] [address]- Business (1) Medications What How Much When Instructions Next Dose New doxycycline (doxycycline hyclate 100 mg Cap) 1 Capsules By Mouth 2 times a day Duration: 5 Days Pickup at [facility][id number] Unchanged albuterol (Ventolin Diskus) 2 Puffs Inhalation [...] needed for Itching Pharmacy Information [id number]: [address] [place], [place] [id number] [phone] Allergies ciprofloxacin (Rash) levothyroxine (Mouth swelling) liothyronine (Mouth (more content not included)... Normal [facility] Comment on above: Result Comment: Elec tronically Signed By: Shae BRITO, Jazmin Eli\.ruba\Date and Time Signed: 12/02/22 12:25 EDT H&P Updateon 12-02-2022 H&P Update [id number]:[address] [facility] Inpatient Patient Summaryon 12-02-2022 Inpatient Patient Summary [address] [address] [facility] Clinical Discharge Instructions PERSON INFORMATION Name: VICTORINO SMYTH PHYSICIANS Admitting Physician: Ni OLIVARES MD Attending Physician: Ni OLIVARES MD PCP: Tray Alfaro MD Discharge Diagnosis: Comment: PATIENT EDUCATION INFORMATION Instructions: Qaxr-Ocgv-ew Utereroscopy,Lithotripsy, Stone Extraction, Stent Placement (Custom) Medication Leaflets: Follow up: With: Address: When: Ni OLIVARES [address] [place] [address], [address], [place] [phone] [facility] (1) Comments: Call for followup appointment MEDICATION LIST New Medications [id number], [address] [place], [place] [id number], [phone] doxycycline (doxycycline hyclate 100 mg Cap) 1 [...] apply to chin, and forhead Comment: Is[facility] Main OR PACU I Recordon Main OR PACU I Record PACU Phase I Docum ent Type FT Summary Primary Physician: Ni OLIVARES MD Finalized Date/Time: 12/02/22 12:58:10 Pt. Name: VICTORINO SMYTH Bryan Chatman./Sex: 1940 Male Med Rec #: [id number] Physician: Ni OLIVARES MD Financial #: [id number] Pt. Type: A Room/Bed: [facility] Admit/Disch: 12/02/22 09:31:57 - Institution: Case [...] By: Piedad Blanco RN 12/02/22 12:[address] [facility] Main OR PACU II Recordon Main OR PACU II Record PACU Phase II Doc ument Type FT Summary Primary Physician: Ni OLIVARES MD Finalized Date/Time: 12/02/22 13:45:57 Pt. Name: SMYTHVICTORINO./Sex: 1940 Male Med Rec #: [id number] Physician: Ni OLIVARES MD Financial #: [id number] Pt. Type: A Room/Bed: [facility] Admit/Disch: 12/02/22 09:31:57 - Institution: Case [...] By: Jazmin Kaufman RN 12/02/22 13:[address] [facility] Main OR Preoperative Recordo n 12-02-2022 Main OR Preoperative Record PreOp Document Type FT Summary Primary Physician: Ni OLIVARES MD Finalized Date/Time: 12/02/22 11:00:33 Pt. Name: SMYTHVICTORINO./Sex: 1940 Male Med Rec #: [id number] Physician: Ni OLIVARES MD Financial #: [id number] Pt. Type: Room/Bed: [place] [address] Admit/Disch: 12/02/22 09:31:57 - Institution: Case Times [...] By: Soraya Borrego RN 12/02/22 11:[address] [facility] Monitor Recordon 12-02-2022 Monitor Record [id number]:[address] [facility] Monitor Record [id number]:[address] [facility] Operative Reporton 3 Operative Report Patient: SHERYL [...] jelly placed per urethra. A well-lubricated 22 Afghan is urethroscope with 30 degree lens then [...] backloaded over the wire and a 4.7 Afghan Bard inlay double-J stent is passed into [...] ml. Complications: None. Anesthesia type: General. Normal [facility] Comment on above: Result Comment: Elec tronically Signed By: Ni OLIVARES MD\.br\Date and Time Signed: 12/02/22 11:51 EDT Outpatient Surgery Discharge Instructionon 12-02-2022 Outpatient Surgery Discharge Instruction [place] [id number] Patient Discharge Instructions PERSON INFORMATION Name: VICTORINO [...] Follow up: With: Address: When: Ni OLIVARES [address] [place] [address], [address], [place] [phone] [facility] (1) Comments: Call for followup appointment Pharmacy Information: You may receive a survey from [employer] asking you to rate your care experience. Your feedback is important and will help us understand what we do well and how we can improve the quality of care we provide to you, your loved ones and our community. It?s an honor to serve you. Thank you for choosing [facility] HERE ARE THE MEDICATION CHANGES THAT OCCURRED DURING YOUR HOSPITAL STAY New Medications [id number], [address] [place], [place] [id number], [phone] doxycycline (doxycycline hyclate 100 mg Cap) 1 [...] forhead PATIENT EDUCATION INFORMATION Instructions: [facility] [place], [place] Dr. Ni Omalley Post-operative Instructions for [...] swelling, kidn (more content not included)... Normal [facility] Patient Education - Texton 0 12-02-2022 Patient [...] MDI an (more content not included)... Normal [facility] XR Abdomen 1 Viewon 12-03-19 23 XR [...] in mGy = na DAP = na [facility] Consultation Noteon 11-29-19 Consultation Note [id number]#1.00CD:127 [facility] Outside Recordson 11-24-2022 Outside Records [id number]#1.00CD:127 [facility] C Urineon 11-20-2022 Bacteria identified Cx [...] Locations R1: This test was performed at: [facility], [address] [place] [address], [address] , [place], [facility] Comment on above: Performed By: #### 1 [id number], [id number] ####[facility] [address] [place] [address] Albuminon 11-18-2022 Albumin [Mass/Vol] 4.0 g/dL Normal 3.3-5.0 [facility] Comment on above: Performed By: #### 2 576624, 3088226, 1455380, 71498800, 313753386, 6165251, 4694472, 5978955, 5090096 ####[facility] [address] [place] [address] Auto Diffon 11-18-2022 Basophils/100 WBC (Bld) 0.2 % Normal 0.0-2.0 [facility] Comment on above: Order Comment: Order Added by Discern Expert. Performed By: #### 2 [id number] #### [facility] Laboratory [address] [place] [address] Basophils/Leukocytes Auto (Bld) [Pure # fraction] 0.0 E9/L Normal 0.0-0.2 [facility] Comment on above: Order Comment: Order Added by Discern Expert. Performed By: #### 2 [id number] #### [facility] [address] [place] [address] Eosinophils/100 WBC (Bld) 0.1 % Normal 0.0-8.0 [facility] Comment on above: Order Comment: Order Added by Discern Expert. Performed By: #### 2 [id number] #### [facility] [address] [place] [address] Eosinophils/Leukocytes Auto (Bld) [Pure # fraction] 0.0 E9/L Normal 0.0-0.5 [facility] Comment on above: Order Comment: Order Added by Discern Expert. Performed By: #### 2 [id number] #### [facility] [address] [place] [address] Lymphocytes/100 WBC (Bld) 8.6 % Low 14.0-50.0 [facility] Comment on above: Order Comment: Order Added by Discern Expert. Performed By: #### 2 [id number] #### [facility] [address] [place] [address] Lymphocytes/Leukocytes Auto (Bld) [Pure # fraction] 0.9 E9/L Low 1.0-4.0 [facility] Comment on above: Order Comment: Order Added by Discern Expert. Performed By: #### 2 [id number] #### [facility] [address] [place] [address] Monocytes/100 WBC (Bld) 7.1 % Normal 4.0-14.0 [facility] Comment on above: Order Comment: Order Added by Discern Expert. Performed By: #### 2 [id number] #### [facility] [address] [place] [address] Monocytes/Leukocytes Auto (Bld) [Pure # fraction] 0.7 E9/L Normal 0.2-1.0 [facility] Comment on above: Order Comment: Order Added by Discern Expert. Performed By: #### 2 [id number] #### [facility] [address] [place] [address] Neutrophils/100 WBC (Bld) 84.0 % High 36.0-75.0 [facility] Comment on above: Order Comment: Order Added by Discern Expert. Performed By: #### 2 [id number] #### [facility] [address] [place] [address] Neutrophils/Leukocytes Auto (Bld) [Pure # fraction] 8.7 E9/L High 2.0-7.5 [facility] Comment on above: Order Comment: Order Added by Discern Expert. Performed By: #### 2 [id number] #### [facility] [address] [place] [address] BMP 11-18-2022 Anion gap [Moles/Vol] 12 mmol/L Normal 6-16 [facility] Comment on above: Performed By: #### 2 [id number] #### [facility] [address] [place] [address] Calcium [Mass/Vol] 9.3 mg/dL Normal 8.9-11.1 [facility] Comment on above: Performed By: #### 2 [id number] #### [facility] [address] [place] [address] Chloride [Moles/Vol] 109 mmol/L Normal 101-111 [facility] Comment on above: Performed By: #### 2 [id number] #### [facility] [address] [place] [address] CO2 [Moles/Vol] 24 mmol/L Normal 21-31 [facility] Comment on above: Performed By: #### 2 [id number] #### [facility] [address] [place] [address] Creatinine [Mass/Vol] 2.5 mg/dL High 0.5-1.3 [facility] Comment on above: Performed By: #### 2 [id number] #### [facility] [address] [place] [address] Glucose [Mass/Vol] 130 mg/dL Normal 55-199 [facility] Comment on above: Result Comment: If t his glucose result represents a fasting glucose, interpretation should refer to the following reference range: 55-99 mg/dL Performed By: #### 2 [id number] #### [facility] [address] [place] [address] Potassium [Moles/Vol] 4.8 mmol/L Normal 3.5-5.3 [facility] Comment on above: Performed By: #### 2 49938014 #### [facility] [address] [place] [address] Sodium [Moles/Vol] 140 mmol/L Normal 135-145 [facility] Comment on above: Performed By: #### 2 [id number] #### [facility] [address] [place] [address] Urea nitrogen [Mass/Vol] 38 mg/dL High 5-21 [facility] Comment on above: Performed By: #### 2 [id number] #### [facility] [address] [place] [address] Urea nitrogen/Creatinine [Mass ratio] 15 No Units Normal 10-20 [facility] Comment on above: Performed By: #### 2 61150931 #### [facility] [address] [place] [address] CBC w/ Auto Diffon 05-25-202 3 Erythrocyte distribution width (RBC) [Ratio] 13.5 % Normal 10.9-14.2 [facility] Comment on above: Performed By: #### 2 [id number] #### [facility] [address] [place] [address] Hematocrit (Bld) [Volume fraction] 34.9 % Low 37.7-49.0 [facility] Comment on above: Performed By: #### 2 [id number] #### [facility] [address] [place] [address] Hemoglobin (Bld) [Mass/Vol] 11.7 g/dL Low 13.5-17.5 [facility] Comment on above: Performed By: #### 2 [id number] #### [facility] [address] [place] [address] MCH (RBC) [Entitic mass] 32.1 pg Normal 27.0-34.0 [facility] Comment on above: Performed By: #### 2 [id number] #### [facility] [address] [place] [address] MCHC (RBC) [Mass/Vol] 33.6 g/dL Normal 31.4-36.0 [facility] Comment on above: Performed By: #### 2 [id number] #### [facility] [address] [place] [address] MCV (RBC) [Entitic vol] 95.4 fL Normal 80.0-100.0 [facility] Comment on above: Performed By: #### 2 [id number] #### [facility] [address] [place] [address] Platelet mean volume (Bld) [Entitic vol] 8.7 fL Normal 6.4-10.8 [facility] Comment on above: Performed By: #### 2 [id number] #### [facility] [address] [place] [address] Platelets (Bld) [#/Vol] 214.0 E9/L Normal 150.0-500. 0 [facility] Comment on above: Performed By: #### 2 [id number] #### [facility] [address] [place] [address] RBC (Bld) [#/Vol] 3.7 E12/L Low 4.3-5.9 [facility] Comment on above: Performed By: #### 2 [id number] #### [facility] [address] [place] [address] WBC corrected for nucl RBC Auto (Bld) [#/Vol] 10.4 E9/L Normal 4.0-11.0 [facility] Comment on above: Performed By: #### 2 [id number] #### [facility] [address] [place] [address] Consent for Treatmenton 10-26 Consent for Treatment [id number]:[address] [facility] Consent for Treatment [id number]:[address] [facility] Ferritinon 11-18-2022 Ferritin [Mass/Vol] 192 ng/mL Normal 24-336 [facility] Comment on above: Result Comment: NORM ALS MEN <30 YRS 16-132 ng/mL MEN >30 YRS 8-338 ng/mL WOMEN (PREMEN) 6-104 ng/mL WOMEN (POSTMEN) 12-210 ng/mL Performed By: #### 2 441144, 1495662, 1394946, 54881387, 026120882, 2249955, 6866570, 3661610, 5436914 ####[facility] [address] [place] [address] Folateon 11-18-2022 Folate [Mass/Vol] ng/mL Normal >=6.7 [facility] Comment on above: Performed By: #### 2 927234, 9252768, 8876885, 74756342, 417229020, 1354271, 4241314, 3944652, 0521246 ####[facility] [address] [place] [address] Ironon 11-18-2022 Iron [Mass/Vol] 102 microgram/dL Normal 35-153 [facility] Comment on above: Performed By: #### 2 461286, 7334611, 9086414, 82418773, 685205416, 5502772, 0883735, 9685799, 5018161 ####[facility] [address] [place] [address] PT & PTTon 11-18-2022 aPTT Coag (PPP) [Time] 27.1 second(s) Normal 25.1-36.5 [facility] Comment on above: Result Comment: Para meter [...] the same coagulation reagent and instrumentation as [facility]. Currently there are no coagulation studies available worldwide for children to 14 days, and no normal ranges. Heparin therapeutic range (represented by Anti-Factor Xa activity of 0.2 - 0.4 U/mL) corresponds to PTT of 56.6 - 109.0 sec. Performed By: #### 2 [id number] #### [facility] [address] [place] [address] INR Coag (PPP) [Relative time] 1.1 {INR} Invalid Interpretation Code [facility] Comment on above: Result Comment: INR results are specifically intended to assess patients stabilized on long-term Anticoagulation therapy suggested INR?s ?Less Intensive Anticoagulation? 2.0 ? 3.0 Conventional Range 3.0 ? 4.5 Performed By: #### 2 [id number] #### [facility] [address] [place] [address] PT Coag (PPP) [Time] 11.9 second(s) Normal 9.4-12.5 [facility] Comment on above: Result Comment: 15 d [...] the same coagulation reagent and instrumentation as [facility]. Currently there are no coagulation studies available worldwide for children to 14 days, and no normal ranges. Performed By: #### 2 [id number] #### [facility] [address] [place] [address] Phosphoruson 11-18-2022 Phosphate [Mass/Vol] 4.4 mg/dL Normal 1.9-4.6 [facility] Comment on above: Performed By: #### 2 954481, 6497844, 1435115, 12991425, 825523754, 6110828, 4078292, 2433175, 8224570 ####[facility] [address] [place] [address] Physician Orderon 11-18-2022 Physician Order [id number]:[address] [facility] TIBC Calculatedon 11-18-2022 Iron binding capacity [Mass/Vol] 292 microgram/dL Normal 250-400 [facility] Comment on above: Performed By: #### 2 522144, 2796186, 2675848, 58310903, 901982622, 9298965, 5550661, 4552453, 7785234 ####[facility] [address] [place] [address] Transferrin [Mass/Vol] 208 mg/dL Normal 200-370 Fi [facility] Comment on above: Performed By: #### 2 874389, 3104511, 5173050, 31994302, 198410810, 1939419, 8286870, 5704750, 1745414 ####[facility] [address] [place] [address] U Protein/Creat Ratioon 10-26 Albumin Elph (U) [Mass fraction] 25.2 mg/dL Invalid Interpretation Code [facility] Comment on above: Result Comment: The reference range and other method performance specifications have not been established for this test; results should be integrated into the clinical context for interpretation. Performed By: #### 1 [id number] #### [facility] [address] [place] [address] Creatinine (U) [Mass/Vol] 80.6 mg/dL Invalid Interpretation Code [facility] Comment on above: Result Comment: The reference range and other method performance specifications have not been established for this test; results should be integrated into the clinical context for interpretation. Performed By: #### 1 [id number] #### [facility] [address] [place] [address] U Prot/Creat Ratio 312.70 mg/gm Cr High .00-200.00 [facility] Comment on above: Performed By: #### 1 [id number] #### [facility] [address] [place] [address] UA With Cult Reflexon 2022 Bilirubin Ql (U) Negative Normal Negative [facility] Comment on above: Performed By: #### 1 9509314, 5818309 #### [facility] [address] [place] [address] Clarity (U) CLEAR Normal Clear [facility] Comment on above: Performed By: #### 1 7397529, 0776124 #### [facility] [address] [place] [address] Color (U) YELLOW Normal Yellow [facility] Comment on above: Performed By: #### 1 9134795, 5310824 #### [facility] [address] [place] [address] Epithelial cells.squamous LM.HPF (Urine sed) [#/Area] 0-2 Normal 0-2 [facility] Comment on above: Performed By: #### 1 1175925, 5589352 #### [facility] [address] [place] [address] Glucose Test strip (U) [Mass/Vol] Negative Normal Negative [facility] Comment on above: Performed By: #### 1 4290363, 9893271 #### [facility] [address] [place] [address] Hemoglobin Ql (U) 3+ Abnormal Negative [facility] Comment on above: Performed By: #### 1 3372529, 9123116 #### [facility] [address] [place] [address] Ketones (U) [Mass/Vol] Negative Normal Negative [facility] Comment on above: Performed By: #### 1 8809536, 0259920 #### [facility] [address] [place] [address] [place].plasma/[place] .RBC (Bld) [Mass ratio] >30 Abnormal 0-3 [facility] Comment on above: Performed By: #### 1 4959599, 6608885 #### [facility] [address] [place] [address] Nitrite Ql (U) Negative Normal Negative [facility] Comment on above: Performed By: #### 1 6114525, 4787506 #### [facility] [address] [place] [address] pH (U) 6.0 [pH] Invalid Interpretation Code 5.0-9.0 [facility] Comment on above: Performed By: #### 1 5303833, 3855571 #### [facility] [address] [place] [address] Protein (U) [Mass/Vol] TRACE Abnormal Negative [facility] Comment on above: Performed By: #### 1 0708811, 7808621 #### [facility] [address] [place] [address] Specific gravity (U) [Rel density] 1.020 Invalid Interpretation Code 1.005-1.[address] [facility] Comment on above: Performed By: #### 1 6173326, 2933570 #### [facility] [address] [place] [address] Type of Urine collection method Clean Catch Normal [facility] Comment on above: Performed By: #### 1 1324408, 2241776 #### [facility] [address] [place] [address] Urobilinogen Qn (U) 0.2 {Wil'U}/dL Normal 0.0-1.0 [facility] Comment on above: Performed By: #### 1 7717532, 2083541 #### [facility] [address] [place] [address] WBC Auto Ql (U) 1+ Abnormal Negative [facility] Comment on above: Performed By: #### 1 4481876, 8926268 #### [facility] [address] [place] [address] WBC LM.HPF (Urine sed) [#/Area] 0-5 Normal 0-5 [facility] Comment on above: Performed By: #### 1 8191691, 8455775 #### [facility] [address] [place] [address] Uric Acidon 11-18-2022 Urate [Mass/Vol] 7.0 mg/dL Normal 2.2-7.4 [facility] Comment on above: Performed By: #### 2 992304, 7516513, 6571699, 45626526, 456934004, 5024257, 1174407, 0310297, 2451519 ####[facility] [address] [place] [address] Vit B12on 11-18-2022 Cobalamin (Vitamin B12) [Mass/Vol] 495 pg/mL Normal 50-1500 [facility] Comment on above: Performed By: #### 2 792148, 3936107, 5812617, 29479306, 866082537, 6916524, 2203449, 1920052, 2844798 ####[facility] [address] [place] [address] Vitamin D 25 Hydroxyon 11-18 25-hydroxyvitamin D3 [Mass/Vol] 64.8 ng/mL Normal 30.0-100.0 [facility] Comment on above: Result Comment: Vit grewal D deficiency has been defined as a level of serum 25-OH vitamin D less than 20 ng/mL (1,2) by the [place] of [employer] and an Endocrine Society practice guideline. The Endocrine Society further defined vitamin D insufficiency as a level between 21 and 29 ng/mL (2). 1. IOM ([place] of [employer]). 2010. Dietary reference intakes for calcium and D. [place]: The National Academies Press. 2. Kortney MF, Candie NC, Ekaterina WEINBERG, et al. Evaluation, treatment, and prevention of vitamin D deficiency: an Endocrine Society clinical practice guideline. JCEM. 2010; 96 (7):1911-30. Performed By: #### 2 246289, 0647914, 9594827, 52157661, 103079879, 7255349, 6307092, 2926426, 9498491 ####[facility] [address] [place] [address] eGFRon 11-18-2022 GFR/1.73 sq M.predicted among non-blacks MDRD (S/P/Bld) [Vol rate/Area] 25 mL/min/1.73 m2 Low >=59 [facility] Comment on above: Order Comment: Order added by Discern Expert. Result Comment: Actuarial [employer] Professor christa kidney disease could be indicated at eGFR's of less than 60 mL/min/1.73m2. Kidney failure is indicated at less than 15 mL/min/1.73m2. Performed By: #### 2 76209019 #### [facility] [facility] [address] [place] [address] Office Visiton 11-17-2022 Follow-up visit [id number] Ruben Smyth 1940 M Date Provider Department Center 11/17/2022 IRIS BLACKMAN [facility] Family History Problem Relation Age of Onset No Known Problems Mother No Known Problems Father Family Status - Relation Status Age at Mother Father Level of Service:83928 SC OFFICE/OUTPATIENT ESTABLISHED MOD MDM 30-[address] [facility] Lab Reportson 11-12-2022 Lab Reports [id number]#1.00CD:[address] [facility] Lab Reports [id number]#1.00CD:[address] [facility] [facility] Lab Reports [id number]#1.00CD:[address] [facility] [facility] Lab Reports [id number]#1.00CD:[address] [facility] [facility] PSA, FREE AND TOTAL RATIOon 11-09-2022 % Free PSA 11.3 % Normal [facility] Comment on above: Result Comment: The [...] men. Performed By: #### P SAFREE #### [facility] [address] [place] [address] Dr. Alicia Patel Prostate specific Ag [Mass/Vol] 4.6 ng/mL Critically high 0.0-4.0 [facility] Comment on above: Result Comment: Dwight CARRILLOIA methodology. . According to the [place], Serum PSA should decrease and [...] disease. Performed By: #### P SAFREE #### [facility] [address] [place] [address] Dr. Alicia Patel PSA, Free 0.52 ng/mL Normal N/A [facility] Comment on above: Result Comment: Dwight JUAREZ methodology. Performed By: #### P SAFREE #### [facility] [address] [place] [address] Dr. Alicia Patel INSULINon 11-08-2022 Insulin 18.5 uIU/mL Normal 2.6-24.9 [facility] Comment on above: Performed By: #### T SH, LIPID, T4, FT3, CMP #### [facility] [address] [place] [address] Dr. Alicia Patel CBC AUTO DIFFon 11-06-2022 BASO # 0.0 103/ul Normal 0.0-0.1 [facility] Comment on above: Performed By: #### C BC #### [facility] [address] [place] [address] Dr. Alicia Patel Basophils/100 WBC (Bld) 0.4 % Normal 0.2-2.0 [facility] Comment on above: Performed By: #### C BC #### [facility] [address] [place] [address] Dr. Alicia Patel EO # 0.2 103/ul Normal 0.0-0.7 [facility] Comment on above: Performed By: #### C BC #### [facility] [address] [place] [address] Dr. Alicia Patel Eosinophils/100 WBC (Bld) 4.6 % Normal 0.9-7.0 [facility] Comment on above: Performed By: #### C BC #### [facility] [address] [place] [address] Dr. Alicia Patel Erythrocyte distribution width (RBC) [Ratio] 13.2 % Normal 11.0-15.0 [facility] Comment on above: Performed By: #### C BC #### [facility] [address] [place] [address] Dr. Alicia Patel Hematocrit (Bld) [Volume fraction] 34.6 % Critically low 42.0-54.0 [facility] Comment on above: Performed By: #### C BC #### [facility] [address] [place] [address] Dr. Alicia Patel Hemoglobin (Bld) [Mass/Vol] 11.4 g/dL Critically low 14.0-18.0 [facility] Comment on above: Performed By: #### C BC #### [facility] [address] [place] [address] Dr. Alicia Patel IG # 0.03 10e3/ul Normal 0.00-0.03 [facility] Comment on above: Performed By: #### C BC #### [facility] [address] [place] [address] Dr. Alicia Patel IG % 0.6 % Critically high 0.0-0.5 [facility] Comment on above: Performed By: #### C BC #### [facility] [address] [place] [address] Dr. Alicia Patel LYMPH # 0.9 103/ul Critically low 1.2-3.8 [facility] Comment on above: Performed By: #### C BC #### [facility] [address] [place] [address] Dr. Alicia Patel Lymphocytes/100 WBC (Bld) 16.3 % Critically low 20.5-60.0 [facility] Comment on above: Performed By: #### C BC #### [facility] [address] [place] [address] Dr. Alicia Patel MANUAL DIFF REQ NO Normal [facility] Comment on above: Performed By: #### C BC #### [facility] [address] [place] [address] Dr. Alicia Patel MCH (RBC) [Entitic mass] 32.9 pg Normal 25.9-34.0 [facility] Comment on above: Performed By: #### C BC #### [facility] [address] [place] [address] Dr. Alicia Patel MCHC (RBC) [Mass/Vol] 32.9 g/dL Normal 29.9-35.2 [facility] Comment on above: Performed By: #### C BC #### [facility] [address] [place] [address] Dr. Alicia Patel MCV (RBC) [Entitic vol] 99.7 fL Critically high 80.0-94.0 [facility] Comment on above: Performed By: #### C BC #### [facility] [address] [place] [address] Dr. Alicia Patel MONO # 0.6 103/ul Normal 0.3-0.8 [facility] Comment on above: Performed By: #### C BC #### [facility] [address] [place] [address] Dr. Alicia Patel Monocytes/100 WBC (Bld) 12.0 % Normal 1.7-12.0 [facility] Comment on above: Performed By: #### C BC #### [facility] [address] [place] [address] Dr. Alicia Patel NEUT # 3.5 103/ul Normal 1.4-6.5 [facility] Comment on above: Performed By: #### C BC #### [facility] [address] [place] [address] Dr. Alicia Patel Neutrophils/100 WBC (Bld) 66.1 % Normal 43.0-75.0 [facility] Comment on above: Performed By: #### C BC #### [facility] [address] [place] [address] Dr. Alicia Patel Platelet mean volume (Bld) [Entitic vol] 10.1 fL Normal 9.5-13.5 [facility] Comment on above: Performed By: #### C BC #### [facility] [address] [place] [address] Dr. Alicia Patel PLT 168 103/ul Normal 150-450 [facility] Comment on above: Performed By: #### C BC #### [facility] [address] [address] [address] Alicia Patel RBC 3.47 106/ul Critically low 4.70-6.10 [facility] Comment on above: Performed By: #### C BC #### [facility] [address] [address] [address] Alicia Patel WBC 5.2 103/ul Normal 4.0-11.0 [facility] Comment on above: Performed By: #### C BC #### [facility] [address] [address] [address] Alicia Patel FREE T3on 11-06-2022 FREE T3 2.78 pg/mlL Normal 2.18-3.98 [facility] Comment on above: Performed By: #### U RTPCR #### [facility] [address] [place] [address] Dr. Alicia Patel GLYCOHEMOGLOBIN A1Con 2022 ADA RECOMMENDATION SEE BELOW Normal [facility] Comment on above: Result Comment: ADA RECOMMENDED LIMIT 4.0 - 6.0 ADA THERAPEUTIC TARGET < 7.0 ACTION SUGGESTED > 7.0 Performed By: #### T SH, LIPID, T4, FT3, CMP #### [facility] [address] [address] [address] Alicia Patel Glucose [Mass/Vol] 120 mg/dL Normal [facility] Comment on above: Performed By: #### T SH, LIPID, T4, FT3, CMP #### [facility] [address] [place] [address] Dr. Alicia Patel HbA1c (Bld) [Mass fraction] 5.8 % Normal 4.5-6.2 [facility] Comment on above: Performed By: #### T SH, LIPID, T4, FT3, CMP #### [facility] [address] [place] [address] Dr. Alicia Patel LIPID PROFILEon 11-06-2022 CHOL-HDL RATIO NORM SEE BELOW Normal [facility] Comment on above: Result Comment: 3.3 - 4.4 LOW RISK 4.4 - 7.1 AVERAGE RISK 7.1 - 11.0 MODERATE RISK >11.0 HIGH RISK Performed By: #### U RTPCR #### [facility] [address] [address] [address] Alicia Patel Cholesterol [Mass/Vol] 107 mg/dL Normal <=200 [facility] Comment on above: Performed By: #### U RTPCR #### [facility] [address] [address] [address] Alicia Patel Cholesterol in HDL [Mass/Vol] 34 mg/dL Critically low 40-60 [facility] Comment on above: Performed By: #### U RTPCR #### [facility] [address] [place] [address] Dr. Alicia Patel Cholesterol in LDL [Mass/Vol] 58.8 mg/dL Normal [facility] Comment on above: Performed By: #### U RTPCR #### [facility] [address] [place] [address] Dr. Alicia Patel Cholesterol.total/Chol esterol in HDL [Mass ratio] 3.1 {ratio} Normal [facility] Comment on above: Performed By: #### U RTPCR #### [facility] [address] [place] [address] Dr. Alicia Patel HDL NORMAL > or = 60 mg/dl - LO W CARDIOVASCULAR RISK <40 mg/dl - HIGH CARDIOVASCULAR RISK Normal [facility] Comment on above: Performed By: #### U RTPCR #### [facility] [address] [address] [address] Alicia Patel LDL CALC NORMAL SEE BELOW Normal [facility] Comment on above: Result Comment: <100 mg/dl OPTIMAL 100 - 129 mg/dl NEAR OR ABOVE OPTIMAL 130 - 159 mg/dl BORDERLINE HIGH 160 - 189 mg/dl HIGH >190 mg/dl VERY HIGH Performed By: #### U RTPCR #### [facility] [address] [place] [address] Dr. Alicia Patel Triglyceride [Mass/Vol] 71 mg/dL Normal <=150 [facility] Comment on above: Performed By: #### U RTPCR #### [facility] [address] [place] [address] Dr. Alicia Patel VLDL CALC 14.2 mg/dL Normal [facility] Comment on above: Performed By: #### U RTPCR #### [facility] [address] [place] [address] Dr. Alicia Patel PROF 14(COMP METB)on 023 Albumin [Mass/Vol] 3.4 g/dL Normal 3.4-5.0 [facility] Comment on above: Performed By: #### T SH, LIPID, T4, FT3, CMP #### [facility] [address] [place] [address] Dr. Alicia Patel Albumin/Globulin [Mass ratio] 0.9 {ratio} Normal [facility] Comment on above: Performed By: #### T SH, LIPID, T4, FT3, CMP #### [facility] [address] [place] [address] Dr. Alicia Patel ALP [Catalytic activity/Vol] 75 U/L Normal 46-116 [facility] Comment on above: Performed By: #### T SH, LIPID, T4, FT3, CMP #### [facility] [address] [place] [address] Dr. Alicia Patel ALT [Catalytic activity/Vol] 31 U/L Normal 16-63 [facility] Comment on above: Performed By: #### T SH, LIPID, T4, FT3, CMP #### [facility] [address] [place] [address] Dr. Alicia Patel Anion gap [Moles/Vol] 14.4 mmol/L Normal [facility] Comment on above: Performed By: #### T SH, LIPID, T4, FT3, CMP #### [facility] [address] [place] [address] Dr. Alicia Patel AST [Catalytic activity/Vol] 23 U/L Normal 15-37 [facility] Comment on above: Performed By: #### T SH, LIPID, T4, FT3, CMP #### [facility] [address] [place] [address] Dr. Alicia Patel Bilirubin [Mass/Vol] 0.5 mg/dL Normal 0.2-1.0 [facility] Comment on above: Performed By: #### T SH, LIPID, T4, FT3, CMP #### [facility] [address] [place] [address] Dr. Alicia Patel Calcium [Mass/Vol] 8.8 mg/dL Normal 8.5-10.1 [facility] Comment on above: Performed By: #### T SH, LIPID, T4, FT3, CMP #### [facility] [address] [place] [address] Dr. Alicia Patel Chloride [Moles/Vol] 110 mmol/L Critically high 98-107 [facility] Comment on above: Performed By: #### T SH, LIPID, T4, FT3, CMP #### [facility] [address] [place] [address] Dr. Alicia Patel CO2 [Moles/Vol] 24.2 mmol/L Normal 21.0-32.0 [facility] Comment on above: Performed By: #### T SH, LIPID, T4, FT3, CMP #### [facility] [address] [place] [address] Dr. Alicia Patel Creatinine [Mass/Vol] 2.41 mg/dL Critically high 0.70-1.30 [facility] Comment on above: Performed By: #### T SH, LIPID, T4, FT3, CMP #### [facility] [address] [place] [address] Dr. Alicia Patel EGFR-AF CYPRIOT 32 mL/min/1.73m2 Critically low >=60 [facility] Comment on above: Performed By: #### T SH, LIPID, T4, FT3, CMP #### [facility] [address] [place] [address] Dr. Alicia Patel EGFR-NON AF CYPRIOT 26 mL/min/1.73m2 Critically low >=60 [facility] Comment on above: Performed By: #### T SH, LIPID, T4, FT3, CMP #### [facility] [address] [place] [address] Dr. Alicia Patel Globulin (S) [Mass/Vol] 3.6 g/dL Normal [facility] Comment on above: Performed By: #### T SH, LIPID, T4, FT3, CMP #### [facility] [address] [place] [address] Dr. Alicia Patel Glucose [Mass/Vol] 72 mg/dL Critically low 74-106 [facility] Comment on above: Performed By: #### T SH, LIPID, T4, FT3, CMP #### [facility] [address] [address] [address] Alicia Patel Potassium [Moles/Vol] 4.6 mmol/L Normal 3.5-5.1 [facility] Comment on above: Performed By: #### T SH, LIPID, T4, FT3, CMP #### [facility] [address] [place] [address] Dr. Alicia Patel Protein [Mass/Vol] 7.0 g/dL Normal 6.4-8.2 [facility] Comment on above: Performed By: #### T SH, LIPID, T4, FT3, CMP #### [facility] [address] [place] [address] Dr. Alicia Patel Sodium [Moles/Vol] 144 mmol/L Normal 136-145 [facility] Comment on above: Performed By: #### T SH, LIPID, T4, FT3, CMP #### [facility] [address] [place] [address] Dr. Alicia Patel Urea nitrogen [Mass/Vol] 32.0 mg/dL Critically high 7.0-18.0 [facility] Comment on above: Performed By: #### T SH, LIPID, T4, FT3, CMP #### [facility] [address] [place] [address] Dr. Alicia Patel Urea nitrogen/Creatinine [Mass ratio] 13.3 mg/mg Normal [facility] Comment on above: Performed By: #### T SH, LIPID, T4, FT3, CMP #### [facility] [address] [place] [address] Dr. Alicia Patel T4on 11-06-2022 T4 [Mass/Vol] 7.90 ug/dL Normal 4.50-12.10 [facility] Comment on above: Performed By: #### T SH, LIPID, T4, FT3, CMP #### [facility] [address] [address] [address] Alicia Patel TSHon 11-06-2022 TSH 0.263 uIU/mL Critically low 0.358-3.74 0 [facility] Comment on above: Performed By: #### T SH, LIPID, T4, FT3, CMP #### [facility] [address] [address] [address] Alicia Patel URIC ACID SERUMon 11-06-2022 Urate [Mass/Vol] 7.3 mg/dL Critically high 3.5-7.2 [facility] Comment on above: Performed By: #### T SH, LIPID, T4, FT3, CMP #### [facility] [address] [address] [address] Alicia Patle Pre-Certification Formon Pre-Certification Form [id number]#1.00CD:[address] [facility] ECHOCARDIO M/2D COMPLETEon 0 10-26-2022 ECHOCARDIO M/2D COMPLETE Patient: VICTORINO SMYTH Exam Date: 10/26/2022 : 1940 Gender:M Ordering : IRIS CORONEL Admission #: [id number] Family : DR TRAY ALFARO . Order #: [id number] CLICK HERE TO VIEW EXAM ECHOCARDIOGRAM REPORT [...] [place] M.D. on 10/28/2022 at 13:02 Normal [facility] RAD - MISCon 10-25-2022 RAD - MISC [id number]#1.00CD:[address] [facility] XR KUB 1 VIEWon 10-22-2022 XR KUB [...] by: TYLER MONSIVAIS Date: 2022-10-22 09:12 Normal [facility] RAD - Ultrasound Reporton RAD - Ultrasound Report [id number]#1.00CD:[address] [facility] US KIDNEYSon 10-18-2022 US KIDNEYS EXAMINATION: US [...] by: TESS FORD Date: 2022-10-18 07:04 Normal [facility] IntraOperative Documentson 0 10-15-2022 IntraOperative Documents [id number]#1.00CD:[address] [facility] 37on 10-14-2022 37 Increase amlodipine back to 10 mg daily Increase Isosorbide to 120 mg daily ( 2 tabs) daily for chest pain Goal b/p is 130/80 or less Call office for continued chest pain/burning, shortness of breath, or call 911 for any worsening symptoms. Normal [facility] BNPon 10-14-2022 Natriuretic peptide B (Bld) [Mass/Vol] 300.0 pg/mL Normal <=1,800.0 [facility] Comment on above: Performed By: #### T SH, LIPID, T4, FT3, CMP #### [facility] [address] [place] [address] Dr. Alicia Patel CBC AUTO DIFFon 10-14-2022 BASO # 0.0 103/ul Normal 0.0-0.1 [facility] Comment on above: Performed By: #### T SH, LIPID, T4, FT3, CMP #### [facility] [address] [address] [address] Alicia Patel Basophils/100 WBC (Bld) 0.6 % Normal 0.2-2.0 [facility] Comment on above: Performed By: #### T SH, LIPID, T4, FT3, CMP #### [facility] [address] [address] [address] Alicia Patel EO # 0.2 103/ul Normal 0.0-0.7 [facility] Comment on above: Performed By: #### T SH, LIPID, T4, FT3, CMP #### [facility] [address] [place] [address] Dr. Alicia Patel Eosinophils/100 WBC (Bld) 4.6 % Normal 0.9-7.0 [facility] Comment on above: Performed By: #### T SH, LIPID, T4, FT3, CMP #### [facility] [address] [place] [address] Dr. Alicia Patel Erythrocyte distribution width (RBC) [Ratio] 14.2 % Normal 11.0-15.0 [facility] Comment on above: Performed By: #### T SH, LIPID, T4, FT3, CMP #### [facility] [address] [place] [address] Dr. Alicia Patel Hematocrit (Bld) [Volume fraction] 36.1 % Critically low 42.0-54.0 [facility] Comment on above: Performed By: #### T SH, LIPID, T4, FT3, CMP #### [facility] [address] [place] [address] Dr. Alicia Patel Hemoglobin (Bld) [Mass/Vol] 11.8 g/dL Critically low 14.0-18.0 [facility] Comment on above: Performed By: #### T SH, LIPID, T4, FT3, CMP #### [facility] [address] [place] [address] Dr. Alicia Patel IG # 0.03 10e3/ul Normal 0.00-0.03 [facility] Comment on above: Performed By: #### T SH, LIPID, T4, FT3, CMP #### [facility] [address] [place] [address] Dr. Alicia Patel IG % 0.6 % Critically high 0.0-0.5 [facility] Comment on above: Performed By: #### T SH, LIPID, T4, FT3, CMP #### [facility] [address] [place] [address] Dr. Alicia Patel LYMPH # 1.1 103/ul Critically low 1.2-3.8 [facility] Comment on above: Performed By: #### T SH, LIPID, T4, FT3, CMP #### [facility] [address] [place] [address] Dr. Alicia Patel Lymphocytes/100 WBC (Bld) 22.6 % Normal 20.5-60.0 [facility] Comment on above: Performed By: #### T SH, LIPID, T4, FT3, CMP #### [facility] [address] [place] [address] Dr. Alicia Patel MANUAL DIFF REQ NO Normal [facility] Comment on above: Performed By: #### T SH, LIPID, T4, FT3, CMP #### [facility] [address] [place] [address] Dr. Alicia Patel MCH (RBC) [Entitic mass] 33.2 pg Normal 25.9-34.0 [facility] Comment on above: Performed By: #### T SH, LIPID, T4, FT3, CMP #### [facility] [address] [place] [address] Dr. Alicia Patel MCHC (RBC) [Mass/Vol] 32.7 g/dL Normal 29.9-35.2 [facility] Comment on above: Performed By: #### T SH, LIPID, T4, FT3, CMP #### [facility] [address] [place] [address] Dr. Alicia Patel MCV (RBC) [Entitic vol] 101.7 fL Critically high 80.0-94.0 [facility] Comment on above: Performed By: #### T SH, LIPID, T4, FT3, CMP #### [facility] [address] [place] [address] Dr. Alicia Patel MONO # 0.7 103/ul Normal 0.3-0.8 [facility] Comment on above: Performed By: #### T SH, LIPID, T4, FT3, CMP #### [facility] [address] [place] [address] Dr. Alicia Patel Monocytes/100 WBC (Bld) 13.8 % Critically high 1.7-12.0 [facility] Comment on above: Performed By: #### T SH, LIPID, T4, FT3, CMP #### [facility] [address] [place] [address] Dr. Alicia Patel NEUT # 2.9 103/ul Normal 1.4-6.5 [facility] Comment on above: Performed By: #### T SH, LIPID, T4, FT3, CMP #### [facility] [address] [place] [address] Dr. Alicia Patel Neutrophils/100 WBC (Bld) 57.8 % Normal 43.0-75.0 [facility] Comment on above: Performed By: #### T SH, LIPID, T4, FT3, CMP #### [facility] [address] [place] [address] Dr. Alicia Patel Platelet mean volume (Bld) [Entitic vol] 10.1 fL Normal 9.5-13.5 [facility] Comment on above: Performed By: #### T SH, LIPID, T4, FT3, CMP #### [facility] [address] [place] [address] Dr. Alicia Patel PLT 160 103/ul Normal 150-450 [facility] Comment on above: Performed By: #### T SH, LIPID, T4, FT3, CMP #### [facility] [address] [place] [address] Dr. Alicia Patel RBC 3.55 106/ul Critically low 4.70-6.10 [facility] Comment on above: Performed By: #### T SH, LIPID, T4, FT3, CMP #### [facility] [address] [place] [address] Dr. Alicia Patel WBC 5.0 103/ul Normal 4.0-11.0 [facility] Comment on above: Performed By: #### T SH, LIPID, T4, FT3, CMP #### [facility] [address] [place] [address] Dr. Alicia Patel Coding Summary.on 10-14-2022 Coding Summary. CD:[id number] Ww+PGh lYWQ+WA1TYNIgX12ivVXalR7cB 0NMTElOSywgQVBQTElOSyIgbmF yKZ4gjQFmNCDe IC8+GE6dPVFeNijruBXin6B1xY H8R76tog0xQSkyuAO0LENsEnWe soqkj9npnBw9QMjyZowtAmUy NGToiQ94ZHT4jD03Ou22hWEnuQ Rwx1cezTj6NfHyNQEvGQF8pRpx WDuha2FrVPXcY93uxGVsh0D6 PIIqjFfyvWTrYpIpwUA2fS2kOE fzjgkow1xyqfcaXrt1ch71cCMe w9P9jQJ3C3NpjiK5PWFcjSAf ZobqbAWViO8qnewax3cjeyjtJs HfOEVeUCg4LTt1JMVdzIgkTwBm YH59DTP6BGVslkXyH3QtHCXh qEdmZpZ9e5L4Do2UA7CCOhjfE7 VNTUFSWTwvdGQ+PE60dh28F0Kv NjyjMao4FVQbDYN3fHL0hX9p PZArITpfi9A6iTK7D4KtlnWput 1oh9qkERBuZSgdN77wfUFfg3U0 SMBgjDE3YSQrvPrgGwAdgY20 Oyc+YUIchZuej3RlJufnd3mkx2 xafYc5AdjoPRIkznOmuBhqCXB1 z6EbGe6xDRAzzBF7hFD4dE4s MgWgHyI1XYqvS406IbZfyCRxLs qcU05mP1BzqJI+IGJwVuh8WFWk cXtmSY7pL9SlQKRsdljljRVm xKicCF7mKXBtftrwVXDwbA1kBM LpV6n4PzOqReV4HDnwP8BiBWEw jvcjPs69sV7wFsLkVlM4NXef K0QkdiO2ALUpqNBcLTvaXVR2G9 9zl0R2LJRiWRYlBOQ3nMK0xL1m bGlnbjogbGVmdDsgdmVydGlj CUbyEJilC052DQOrwSfmAmUnWP luZyBEYXRlOiAgMDQvMjAvMjAy MzwvdGQ+GGMmOGK1kPirJCNi cLZkHYywIz4bgYsmjSlmAW3tKO SvfwyxJQVrmF9qFMDeuIFwkWsr KX3xXPIjeleda476SbIeVLL2 RCAnuWMiG8MfaO1gJiSuYWPjEL MjY6UniOStBXeoK817ETzuIaV9 FCNliqGaO1DbEZManAhxBgL5 f1D4Vv0Lx8TqzhtjI7SaaYGhCe FuAcbyKEa1X6YaOxbigHA+PC90 PAYsMS35JRa8KEP4oGxhIFnq UFLiT9YymE5wGeMzQDPtNQCiGe c+PHRhYmxlIHdpZHRoPScxMDAl AtIteLwjYG7xUq9hTIUpILXd lUktcFYnFyRhi9vvLEEoQXieTE 7zuTzlE0WuiPQ6RUVhi5s7Og41 P80wW7YcdBY+EYUudZK8zHL7 cL3tCbOhFyJ7UFnmI848VsZcdR QfWoant4nlx3elyUy0ArB7BRIh yqKukPbfQRB6u4FpMn31M12h IHdpZHRoPSIxNSUiIHZhbGlnbj 6feA1gUd9+LCEcjRD1hGC3aE4h UnEoDgM8COqvS007UgKvfACl Kqzog2ded4axgOv8IzBcKDBclh BpmWsjAXM7c6CtTe03S0JtfDki p0NsWlt5ax22yAUsh3F4rKY9 P7QyYKGenxnakIOhlVhcBR6qBQ XubwxtPJCkrX1yNFOjO2t4BzNj NvS7VRopE3XxwpE6MCIgvOZs JQFwaXURaH5lkwhst2acuvliGl HmSQTcJVu0REm7YTNgyMtwEzWi DWB2VyE1LIA3vGQpdC3bhIyz ngqidF1lIve+GDC7nUJfcCACWW 1lOjwvdGQ+HSOgFTY8iWsnEXbj AZPbqY8cNJSeC5m6LbJeTcD0 OCavA9TuybP2FUCocKZfGHPzjJ AKgF0wpnljz7rgtewjHiWzROGt NUb4QBp8ZUPdoEqvZtMyUKL9 RdC1HZX7cCWnhW0mpLvdyuxzfK 9wOyc+CgbzkNpwHRK2QJq4T4Ve Xml7BFQzaEluBQ8uaMQrHUba Qc2ssQcpzIukHL9bGAHomhckc1 17VgGwa2eaQCKfcHIeTUelBDU7 V96ff9X8CBZxPKYmPQU9rIV6 gQ8wcHtmrfcuuTKcuCogryItbO cuBHzvKVpeG482REPedSpuBpJz KOg2M4OhZpz3CEDztBmdUP3a mEIrXCdcZw8shOiakVnjME6iVT Fnqkjvp467GuJly8xqYPVmkXOr EQysFUR2I59zd7Y6ZFFyHTDy FIG9lUZ6nJ6vmJqqazgrfQGjmO pambKyzNpyUQwyDLgkG642QUPq qXzkWdLktLy4F7InPls8NFIx eVwwQT3jtEOoYSwuTa3vrJshvP epOF7oADYchdtyb203CiAqn0bh TGWmhSKoQYabHZD5K93aw1V3 BBHsRRKfDNF0eKQ4cG5phKcdkp ogbGVmdDsgdmVydGljYWwtYWxp L486QFSceAemFqOuhKhonqSc RFxdDZd8O5JsBdctmTT+PC90YW NpLI10yLAdiJTdz1kktFk5SuTy SVByJRV6qLbiBGahk7FzQSUw E77lhQLpe5B3LWSkaGhitTRbLl TqaTO7kA2uXYudfxgio2ktpglp Tdpuc1pkkc94bH72R96dDAlj FWHmYUQxCFLoODBlfVtyrq2jlD 9wIi8+GKJskHD2lPQ2bL3vINVa EzZ5FLfoN010MbXybREvGtsr k3qlk7byeRv0MjF0BOWrbpSfqD nsCBZ5b6AqGx27Z33zXVpcETZl BHAgMOJoMRXzhKokys5flX7h Ii8+MMZznGM4hGA2jZ3mVtHbEx J6SIrnR804YyNeoVPyRlxnW92a A1PczAS+SNGyAgh0VYAfqQjf AU0efJDnZCwiZx9bZJS3PrJaJi FyOMpxL9NtAKVkcxumjkbixYE5 JCFbRKFgjH95Gz7jqBreKWKm aYCSsA8qtnmqh7zmkyqiAySoHZ AfLTx8OFc8KUHzzExjHsOlXYK6 GlX2SYG1mIXimF6maHsbexdp hE2cM5TjSJNgkbklBe29eC2hZb MgGzA0RQitRbp+MMERPB2WUueo ClMGHeTXPNSODK31FR52uNYr k8Q4gEM9E4HtALSqpfaijyrvuR Y4BZLaWSXazV71pFPmZEflMi6k o6V5t823AZItIESrrS23Gi3b qKguIEOskYEDkF3ncgmsh0hnyq rhMiIzISXrBQm5SDs6SQMhvGjd YsJqNYD3GhQ6GLQ2eGLniF9g pLimhfskfI0hLel+MDIvMDQvMT s1CxcbeQE+ZSXdQJV6kInrEGkd ZJEdwD8dUOMkP9t8PcWaGtL2 ZBzkD9YdYBQbhcwqVu07zK5aNd NaHkA0IAvnH5TnnqM6VZOueOGq CVcwEHB3N41hj0W0PAVlICOx ZJQ3uAO2yQ4ugQeecthhcQVfpQ hpbdLxhLkpTIzbVIhcC768HGHq eEslEjkkMLzeZXQpEG19DT59 aGJeb9Y9fDE4A2KkCYDxddndho nsvPK2NOPhKBZanP61bHHfLUni Pb8lf8H7d697NCXpGRQelS40 Bv3ffMfzQMCiwAWAhX0aunega5 muqpdwTnHoYBPcDJy5DGf3NTPe nYjzDeDfKOI4TqN3GYZ3nEMz uP5dgLnczflubJ1lCax+TWFsZT wvdGQ+ABHzTYB7mCwuTTezYANn dF1pEJBxL0c5PwDuMyD0JDiw M7LgVWEbgmepZz57kL5nDiPwOi U3KZwvB1IwgfR4LWKauRXpITuw TCF2N36ym1A3AKDcZVRcCWL7 fSS0hG3tnMlrrmcuaGTtwNbhnk YftKftYXacKBedW900GUOgdQgf LgKqXaKdTKTnixtjU0UfLXTA ATwhX7RgD5CddDajfHO+PC90cj 27O6VvLfhcIjx6LLNiMIW4yHQ5 zM5rPNTqVOzqx2V2mMP0F8Pm ksHckl5cp2qrXZJyBMlwV14moO Dax5A3JAXhwBN6SSHhjDdnEiOe gI00Zmx+HKJylMtpm4FyNlsi i8hbs7mclAv4JkJnROTgchOokB ssHIJ8v5MwIq31U29tULafUBRm BGGbTFZbCKZogIwknv3jxX6e Ii8+HFOzlWJ6gLZ7eJ7aMpUaDq L2UGjdG401EsXjmGIcHbgyg9ff r7azpOe4PqQzMGNujtTzrUmu AKA5y9HfIv13V4OodAliw7ZuIu w7sn63aXZee9A5iGX6F0HxBGBl fqltdPOmlOwcYC3qSCZdazno GCCdwT4iINKkG7h9GkScJsR5LG fgF7MbmdW0IEImcMRpMHIxeKGM oY8iciziv9noyygqUyZiPJBf FJc1WNi6OKBiuGfpCdCrSOX2Yi L4CFH7hPTbyD9jwKuelrdkrG6n Oyc+KKn0o7dzrVYhUW7mxHO3 XV75ZG36dSQrn5L8aTY1N9AeME DzmzebytyukJP4RFGvUJKabT33 Ya9ytBybLb3aVLHbGRA1GARy oZKaK7XyfB2lVzCiYMPgPWLzN4 OxjJZrWRwbQ776NKnkUoU7MUBr oyVkP4HqSYPvlSohUqY7k5A1 Ut3GHF63UV01FX16nIGlt3W8dS M8X7EuPKBhkyilsyoypLM2DCQs XTWfeC54Pl3bdKmsPo6lFYGq BAQ0JWRrqDQsP9OitC8oLpRvWQ ZzPNYvQ7VotSYxWLucJ846EGgb OrI1LXQklpWoB9HkIADqiMsq XwQ4i6V2Ca1WQz55IM05JC78kP Wpi6L9iLF4J4OxAJUvosdwnboh iJE6FTHdIHIflQ22Az2nyYmm Ca1kJTDmFWY4RVLsnKGkG6EmdZ 3nRoXyCTEwCIJwD3GdnTIkVAbb N915RZhjIkE6BDUhnfAnD2Zs TQJkuXseDuR8h5A9Is2IWJfgnx f7N9YgVcwjpNJ+CH48OHDyWA59 rZGecHKqf9semEe6CzXfCHPp LLY8zLuy (more content not included)... Normal [facility] Office Visiton 10-14-2022 Follow-up visit [id number] Ruben Smyth 1940 M Date Provider Department Center 10/14/2022 IRIS BLACKMAN [facility] Family History Problem Relation Age of Onset No Known Problems Mother No Known Problems Father Family Status - Relation Status Age at Mother Father Level of Service:42298 SC OFFICE/OUTPATIENT ESTABLISHED MOD MDM 30-39 MIN Reason for Visit and Comments: Chest Pain [603021] Coronary Artery Disease [187] Hypertension [007532] Normal [facility] PROF CHEM 8 (BAS METB)on Anion gap [Moles/Vol] 13.9 mmol/L Normal [facility] Comment on above: Performed By: #### T SH, LIPID, T4, FT3, CMP #### [facility] [address] [place] [address] Dr. Alicia Patel Calcium [Mass/Vol] 8.3 mg/dL Critically low 8.5-10.1 [facility] Comment on above: Performed By: #### T SH, LIPID, T4, FT3, CMP #### [facility] [address] [place] [address] [address] Alicia Patel Chloride [Moles/Vol] 108 mmol/L Critically high 98-107 [facility] Comment on above: Performed By: #### T SH, LIPID, T4, FT3, CMP #### [facility] [address] [address] [address] Alicia Patel CO2 [Moles/Vol] 23.5 mmol/L Normal 21.0-32.0 [facility] Comment on above: Performed By: #### T SH, LIPID, T4, FT3, CMP #### [facility] [address] [place] [address] Dr. Alicia Patel Creatinine [Mass/Vol] 2.41 mg/dL Critically high 0.70-1.30 [facility] Comment on above: Performed By: #### T SH, LIPID, T4, FT3, CMP #### [facility] [address] [address] [address] Alicia Patel EGFR-AF CYPRIOT 32 mL/min/1.73m2 Critically low >=60 [facility] Comment on above: Performed By: #### T SH, LIPID, T4, FT3, CMP #### [facility] [address] [place] [address] Dr. Alicia Patel EGFR-NON AF CYPRIOT 26 mL/min/1.73m2 Critically low >=60 [facility] Comment on above: Performed By: #### T SH, LIPID, T4, FT3, CMP #### [facility] [address] [place] [address] Dr. Alicia Patel Glucose [Mass/Vol] 74 mg/dL Normal 74-106 [facility] Comment on above: Performed By: #### T SH, LIPID, T4, FT3, CMP #### [facility] [address] [place] [address] Dr. Alicia Patel Potassium [Moles/Vol] 4.4 mmol/L Normal 3.5-5.1 [facility] Comment on above: Performed By: #### T SH, LIPID, T4, FT3, CMP #### [facility] [address] [place] [address] Dr. Alicia Patel Sodium [Moles/Vol] 141 mmol/L Normal 136-145 [facility] Comment on above: Performed By: #### T SH, LIPID, T4, FT3, CMP #### [facility] [address] [place] [address] Dr. Alicia Patel Urea nitrogen [Mass/Vol] 36.0 mg/dL Critically high 7.0-18.0 [facility] Comment on above: Performed By: #### T SH, LIPID, T4, FT3, CMP #### [facility] [address] [place] [address] Dr. Alicia Patel Urea nitrogen/Creatinine [Mass ratio] 14.9 mg/mg Normal [facility] Comment on above: Performed By: #### T SH, LIPID, T4, FT3, CMP #### [facility] [address] [place], [place] [address] Dr. Alicia Patel TROPONIN, HIGH SENSITIVITYon 10-14-2022 HSTROP 9.6 pg/mL Normal 4.0-76.1 [facility] Comment on above: Result Comment: CUT- OFF POINTS HAVE BEEN ESTABLISHED BASED ON THE FOURTH UNIVERSAL DEFINITIONS OF MYOCARDIAL INFARCTION. THE UPPER REFERENCE LIMIT (URL) OF TROPONIN, DEFINED THE 99TH PERCENTILE OF cTnI DISTRIBUTION IN A REFERENCE POPULATION, HAS BEEN CONFIRMED THE DECISION THRESHOLD FOR [place] DIAGNOSIS. Performed By: #### T SH, LIPID, T4, FT3, CMP #### [facility] [address] [place], [place] [address] Dr. Alicia Patel Main OR Intraoperative Recor don 10-13-2022 Main OR Intraoperative Record IntraOp Document Type FT Summary Primary Physician: Ni OLIVARES MD Finalized Date/Time: 10/13/22 15:17:44 Pt. Name: VICTORINO SMYTH/Sex: 1940 Male Med Rec #: [id number] Physician: Ni OLIVARES MD Financial #: [id number] Pt. Type: A Room/Bed: [place] [address] Admit/Disch: 10/07/22 09:01:16 - 10/07/22 17:40:00 Institution: [...] Role Performed Anesthesiologist of Surgeon - Primary Car Examiner - Primary Record Time In 10/07/22 15:01:00 [...] and tissue Entry 1 Skin Integrity Intact, [place], Warm, and Skin Abnormality No Dry Outcomes [...] at Side (more content not included)... Normal [facility] Consent for Anesthesiaon Consent for Anesthesia [id number]#1.00CD:[address] [facility] Discharge Instructionson Discharge Instructions [id number]#1.00CD:[address] [facility] IntraOperative Documentson 0 10-08-2022 IntraOperative Documents [id number]#1.00CD:[address] [facility] IntraOperative Documents [id number]#1.00CD:[address] [facility] IntraOperative Documents [id number]#1.00CD:[address] [facility] Preoperative Documentson Preoperative Documents [id number]#1.00CD:[address] [facility] Preoperative Documents [id number]#1.00CD:[address] [facility] Preoperative Documents [id number]#1.00CD:[address] [facility] XR Abdomen 1 Viewon 10-09-19 23 XR [...] mGy = 0 DAP = [address] [facility] CHEMISTRYOrdered By: Lab ROP User on 10-07-2022 Glucose [Mass/Vol] 101 mg/dL High 55 - 99 mg/dL [facility] P[facility] Subsection Comment on above: Result Comment: Jackelin quach RN/ POC Device SN [id number] Invalid Interpretation Code FT POC Subsection POC User ID [id number] Invalid Interpretation Code [facility] POC Subsection POC Username BEE NORRIS Invalid Interpretation Code [facility] POC Subsection Capillary Glucose POCon 09-25 Glucose [Mass/Vol] 101 mg/dL High 55-99 [facility] Comment on above: Result Comment: Jackelin quach RN/ Performed By: #### 2 [id number] #### [facility] [address] [place] [address] Consent for Procedure/Surger yon 10-07-2022 Consent for Procedure/Surgery [id number]#1.00CD:[address] [facility] Consent for Treatmenton 09-25 Consent for Treatment [id number]#1.00CD:[address] [facility] H&P Updateon 10-07-2022 H&P Update [id number]#1.00CD:[address] [facility] Inpatient Patient Summaryon 10-07-2022 Inpatient Patient Summary [address] [address] [facility] Clinical Discharge Instructions PERSON INFORMATION Name: VICTORINO SMYTH PHYSICIANS Admitting Physician: Ni OLIVARES MD Attending Physician: Ni OLIVARES MD PCP: Erum OLIVEROS, Tray Discharge Diagnosis: Comment: PATIENT EDUCATION INFORMATION Instructions: Post Op Patient Instructions - FT (CUSTOM); Lithotripsy, Care After Medication Leaflets: Follow up: With: Address: When: Ni OLIVARES [address] [place] [address], [address], [address] [address] Business (1) Comments: We were [...] Location Start [facility] [place] [facility] Office Visit [facility] [place] 10/29/2022 8:45 AM 10/29/2022 9:00 AM Confirmed MEDICATION LIST New Medications [id number], [address] [place], [place] [id number], [phone] acetaminophen-hydrocodone (acetaminophen-hydrocodone 325 mg-5 mg oral tablet) [...] Capsules By Mouth every day. Comment: Normal [facility] Main OR PACU I Recordon 09-25 Main OR PACU I Record PACU Phase I Docum ent Type FT Summary Primary Physician: Ni OLIVARES MD Finalized Date/Time: 10/07/22 16:21:28 Pt. Name: HAJAVICTORINO/Sex: 1940 Male Med Rec #: [id number] Physician: Ni OLIVARES MD Financial #: [id number] Pt. Type: A Room/Bed: [facility]/ Admit/Disch: 10/07/22 09:01:16 - Institution: Case [...] By: ALESSIA YOON RN 10/07/22 16:[address] [facility] Main OR PACU II Recordon Main OR PACU II Record PACU Phase II Doc ument Type FT Summary Primary Physician: Ni OLIVARES MD Finalized Date/Time: 10/07/22 18:36:17 Pt. Name: VICTORINO SMYTH/Sex: 1940 Male Med Rec #: [id number] Physician: Ni OLIVARES MD Financial #: [id number] Pt. Type: A Room/Bed: AS06/ Admit/Disch: 10/07/22 [...] By: Eliz Mcbride RN 10/07/22 18:[address] [facility] Main OR Preoperative Recordo n 10-07-2022 Main OR Preoperative Record PreOp Document Type FT Summary Primary Physician: Ni OLIVARES MD Finalized Date/Time: 10/07/22 15:12:57 Pt. Name: VICTORINO SMYTH/Sex: 1940 Male Med Rec #: [id number] Physician: Ni OLIVARES MD Financial #: [id number] Pt. Type: A Room/Bed: Admit/Disch: 10/07/22 09:01:16 [...] 10/07/22 15:12 Aravind Gatica 10/07/22 15:[address] [facility] Monitor Recordon 10-07-2022 Monitor Record [id number]#1.00CD:[address] [facility] Monitor Record [id number]#1.00CD:[address] [facility] Operative Reporton 3 Operative Report Patient: SHERYL [...] it well. He is transferred [facility] and then back to PACU in [...] patient's that he needs to contact his speech scientist and/or Dr. Jose Alfaro to arrange for possible further follow-up regarding this. She was in agreement with the plan.. Estimated Blood Loss: 0 ml. Complications: None. Anesthesia type: General. Normal [facility] Comment on above: Result Comment: Elec tronically Signed By: Ni OLIVARES MD\.br\Date and Time Signed: 10/07/22 15:51 EDT Outpatient Surgery Discharge Instructionon 10-07-2022 Outpatient Surgery Discharge Instruction [address] [address] Patient Discharge Instructions PERSON INFORMATION [...] Follow up: With: Address: When: Ni OLIVARES [address] [place], [place] [address]KAYLEELA IZZY, [address], [place] [phone] Business (1) Comments: We were able to [...] any other anesthesia procedures. Type Location Start [facility] Office Visit [facility] [place] 10/29/2022 8:45 AM 10/29/2022 9:00 AM Confirmed [...] to serve you. Thank you for choosing [facility] HERE ARE THE MEDICATION CHANGES THAT OCCURRED DURING YOUR HOSPITAL STAY New Medications [id number], [address] [place], [place] [id number], [phone] acetaminophen-hydrocodone (acetaminophen-hydrocodone 325 mg-5 mg oral tablet) [...] Instructions: Lithotripsy, Care (more content not included)... [facility] Patient Education - Texton 0 10-07-2022 [...] these instructions at home: Medicines ? Take ekpj-osi-smadxcu and prescription medicines only as told by [...] help ri (more content not included)... Normal [facility] Progress Note-Physicianon Progress Note-Physician Patient: VICTORINO SMYTH Age: 82 years Sex: Male : 1940 Associated Diagnoses: None Author: Toya OLIVEROS, Timothy Motta Postoperative Information Postoperative disposition: Postoperative disposition: To PACU. Optimetrix number: Optimetrix number [id number]. Anesthetic utilized: General. Physical Examination Vital Signs [...] when meets criteria ( To home ). [facility] Comment on above: Result Comment: Elec [...] Problems Acute kidney failure / SNOMED CT 44141098 / Confirmed Anticoagulated / SNOMED CT 404878673 / Confirmed BPH associated with nocturia / SNOMED CT 5207758754 / Confirmed BPH with urinary obstruction / SNOMED CT 2431123451 / Confirmed Chronic obstructive pulmonary disease (COPD) / SNOMED CT 08623700 / Confirmed Coronary artery disease / SNOMED CT 18515949 / Confirmed DM (diabetes mellitus), type 2 / SNOMED CT 605180665 / Confirmed Elevated PSA / SNOMED CT 2781164894 / Confirmed Erectile dysfunction / SNOMED CT 3463267497 / Confirmed Flank pain / SNOMED CT 003593695 / Confirmed H/O: hypothyroidism / SNOMED CT 064953616 / Confirmed Hydronephrosis / SNOMED CT 14599566 / Confirmed Hydronephrosis with ureteral calculus / SNOMED CT 5507485415 / Confirmed Hyperlipidemia / SNOMED CT 14247750 / Confirmed Hyperplastic colon polyp / SNOMED CT 1676975700 / Confirmed Hypertension / SNOMED CT 8911566109 / Confirmed Kidney stone / SNOMED CT 954018027 / Confirmed Myocardial infarct / SNOMED CT 07567673 / Confirmed Occult blood in stools / SNOMED CT 81741759 / Confirmed Postprandial diarrhea / SNOMED CT 14782462 / Confirmed Prostate cancer / SNOMED CT 9156270265 / Confirmed Rheumatoid arthritis / SNOMED CT 914765379 / Confirmed Ureteral stone / SNOMED CT 63151310 / Confirmed Urinary retention / SNOMED CT 478032185 / Confirmed, Active Problems (24) Acute kidney [...] Mean Kayce (more content not included)... Normal [facility] Comment on above: Result Comment: Elec tronically Signed By: Toya OLIVEROS, Timothy Villanueva.br\Date and Time Signed: 10/07/22 16:52 EDT Coding Summary.on 09-22-2022 Coding Summary. CD:[id number] Ww+PGh lYWQ+IJ9LRKZfJ58ohKCgeZ9aF 0NMTElOSywgQVBQTElOSyIgbmF sQQ6btRNqUPPk IC8+BF1uOEVdQfcmnQYki9O6gS S6H68vfa8bDRfxwWE1NIEbYlRb bayfy9wagXm6PDekQkvwZwZf IRVndC39RGZ3cL83Aa61rOGhgP Kha6ehtXh9TtTtGKBwVWZ8pDxr XNawl7UeDFOaU38vtLYqm4M5 JAFihUltuLWiWbKjmOA9uR2nNT cygmbeg8mnamedYab7mh30wWXn f4N1yYK7A6SfztT0GHJiwBVn QgelbFLKrM9xjoyze8wilmkzYq KaBGUxYVm5TQi5APQlhIxzBgQa IE57LVO4HVIjcnFoU7BuTCIe sFvsQqH5v3L5Ce3FU9MMDlbyC2 VNTUFSWTwvdGQ+LW43ba11I5Zz ZzitRci4XGCiOXF1rDX7wX2g TIGnVCevj2A8lQI7T4VumqAnvi 5rf3gtAJNyDCdiI02btPXpr0I7 KVSajDZ1PMPgrBvtDkEwmG27 Oyc+WEEmrQzuj5QzYzlqo6ykr1 yurKy2AobmJFJlblCqfIarBYE4 k5GjCy1yNFTxaRS6lIO1mP5j XaLnDrH3DVhvT092FxZgqITwWw akY92dN9KqoMN+MQFkAiy1FOIy mOolHB4gQ1GrKUKrejdtaEGn sEalOC9oNTEeggbbYOTrbH1qIX WjJ5r0DjPaHhU8QTwuN6KfZMDw lqtsTa16kX9aZrZaGgR0JDvy L1SynbG5GKKeoNVqLSphJZC5N3 9eu9P3PLOjRBQuXHS2cEE8sT6e bGlnbjogbGVmdDsgdmVydGlj SKckFKqrE164YHQidBthWpToXK luZyBEYXRlOiAgMDMvMjkvMjAy MzwvdGQ+WUEeAQD4tPbpHLXr yVKnEXgeLi5jeRiaxLbpLZ0kAU ClblydAYIioX4eHXTtsSBzwJhm EC3tATDkaewtm293CmXpGOY1 IPYqhREwW8RuiR5kHxOzALMhXR XeP6ClcRDaOSitT524SEdwHrN5 JPSnzmYuD1TlVIXrtMddUkG4 l1N8Yf7Tj7EmutbkV1JjtHFcUt LvTzcnCJz2S5GnMbjruMB+PC90 YUVvEZ21ZKa6NRH1bDeyTQcb XRFmR8XnuZ3xTwTsMANzVROgGe c+PHRhYmxlIHdpZHRoPScxMDAl OyHrtMrtUS7pFi8gKLFfUGQi dUsrxQShIqQqy7isCRPrJXnnGL 2ciYsbK8TssRW0TBVxx1u1Se70 A43yX4WfzVZ+PWCmzKD8mXN9 oZ9qXcExHyN6KVntT924ZuXrgA PuRjhck1dkp5qqmQy9EfS4VAKe onVvoVqyBIN1g0ZiOo17C42u IHdpZHRoPSIxNSUiIHZhbGlnbj 5juV5nGb4+RNQadYW0tIJ2aZ8j GiXsCyQ9KWuwD462YdKrnBWd Nmrjy4fud1txoRd1QjIhBINaqd SrzQopNEP5i6XwQu81V0RzeVee k7JlRjz3xq75hJOlm7A5rMJ0 V4XeEEEmdcejvQKrdFxiRT7oUI TlydaePWJxmA2kRYGsU7u6DrCc WpN3YIwaB2AhnjJ8UEGdwLQo DBAazEXLhU9hauqsc7zbvibjOh DfNSNpJVr1EQc9MLGnsUlyWjWv UXS6LzK4VUP6gEHbpU3jaTcn njwsmI3gDxx+IVO2fLQeoZBODX 1lOjwvdGQ+KGSwXCI6xEslOPem UIWbsP6uAUFvX4b3ZmEnZuN0 QSrnQ6TkjsY1TTAeuQEyACPprE NXyY9namcmc5kcniudLlToNDMl HVz2EZa6MXClqBetQsCnLVN0 LjQ6BQW4vLKjaH1lrGsfxdsvvS 9wOyc+UjvinCsxAIN4MGp4R3Na Eyk2ONLkcFhmQA7qrPHxZUcw Nf4fnQnpsUwjUT3wWMFhifxfx9 82LoSgo4ngPTKkaEVrETkbODB2 V42jr5W4VFQkIWBwIIL6eOB9 qB9cxYybeivpgSEzzEtkgnStlK dsGNsdYEcoK963EMWwrMcqJnRx UBc7J9ApPxv7HRKviOgvIG2e iHIrNQqlAw7ekZclpDzzOA7uDR Adepehs667DhNya0thECGjkWVh TOnqQQE0W84ia8V5HPEcJEKu XHJ6yDG0mV0sgMqysritnNXvkT rpxaMlsJejXLouJJdcT058MRQs hBahKyFpqSn2N0WzVyg8AVAc cDrmGF6tyKYzXHlmWo5alCjrpV wnXM2zWAVmytnvh513IxIyn7wb GZSyjGQfZXafSYX0M98ps1M1 WLGxACFbTSB9jPK2wH6tnMakjy ogbGVmdDsgdmVydGljYWwtYWxp O051LHPfoFhqTtNgnJiphdVo GLdeTJr4P3RsYgjxxMU+PC90YW QgSA63dFElrFNpo1bkvQr9EqMj AUEoGDQ7vUhaRAtnf0RtAYOf D48djWBdv2P6BSYqwTlgnVUmNj RrtKR8fQ9qNBxdysjzy4wjlzje Sahtq2pdry10oX99Q90zCNfh NQCuGFUwTFCuIOAqfYfpwq6exA 9wIi8+TORmnMQ2zZO1wJ0jMFXw NjT5RZjjM609DsTpiWTkFzkm h3muc2zcsDe2HxL3BKDbigEnmT mnRNP2g9TlWz41A06hMUmrLLBx USOsKDXpKGHzbHixmp0jfS8m Ii8+DZJpbIR3bPO1kU2jKqMjHq X5FZntD582ZnUgaVQqClrmX43s D9RikAM+LCAsIwc5VWXuoTqt EA4ldBBcJLruYn4cZPA4SmTpIc IgUTkzM6WtMIAcymhuzwoflDH9 ANDoEFHhuO96Hz1wxXonEGNn cHQDbF7irdvsl6bqcwgnTdMcRY YsZYr9DZd5EMNdxYqaVyWtJSJ2 GeF1MZP8iYQcxZ5ddYqnkhgm dJ1kX7KyPIOtdrduEx28kQ6yHs FqMmV3FVbrTwk+STXLHA3WChju BwXPSeIJZBNDXG81SC36eHMt z5Y1mTR5V4VqMWJldgjjgysqnC S6TEFbPQKxbJ41eKUeXIyeXs1t i3V1q964DAUwZPJjkF40Oz3e yPkgDIPiyEPOfH7ggkvij7dzyi umUzFrODNyYXm7GBj2FLLomJln HtQlCHT6BkT8YEP7cAZhoK8s pQqinwmpkZ5nRoj+MDIvMDQvMT r2JejqyYW+RJWpTHE0wEjsACtv USScjB1pPUKeG1f5VmStMkY0 BRwqZ7TtFTSfquxfYd88gD9nUz CtMtF3DKxtO6FukcX2QXGkvVCa XAhsJDB9L04bv3G4AIRmIJAc XCP0yIP8fO7jrUwsunfheRMxaD fycbZcpQzsDIbkKUjaQ879XIFd eIxeIucxRBwrQPQrHJ94EL18 hJMjx9Z3xBR3P3AjVTAbcegzdw zfhKR4RXLjCJZjmF72kBPyDAia Nf3vj2K8u804EYPoKNLkaY93 Vw6qsYdvXJLcxMRFeF3tjfdaz7 urtwewBzCvLTVeGPs5EDz3KHLk nMioUrYbWXH5KyC1TDU4rMRh dH5xdGkgpqcpxZ9gYor+TWFsZT wvdGQ+PETgFVK8mGtwEUhbGVJw kI2zELGpU2c1WxTjPuT0CTmd A8KlUTWhrvkdTk22iB6dIaGjKh L9GXpuG5VtkjI1YYRizVWkIUvf IRJ4I32su9O1GWMyXBVnLLB4 yAI2lA6ssVdrxkwinDJdhBbbwd VatMxhAFpwUHqpI675UULwfDwo Sj24eEOdqKerxcY9U2MnCvoc dHI+NY66YXKjHW82bCRxsGXap3 fclQu2KkCzDGJhLMU9kEjiJTpa v2OtKFOtG33txUHbt1P3TYCk aBocqLZnUfQphFX2vT0iXMsadj ghi4waqzukZbukx6walp22vA58 F73pBYzsCXXsJVGrCIIiYDRq iTqazs0fjM2wSp2+KQSveKY6xX S7nU6gQfJxUfU6XBnnB405DjRt oQVgTsthe6hmz9vehXo4XnUn AGGrjiUcxOmnZBD7t6WsWp78X5 9sIHdpZHRoPSIyMCUiIHZhbGln ue9myN5zNp0+IW3ro8yzrr26 eH73rHA+GLAcYRU9nFwmTBljPS IgiB4iLTprWlN4EXWlDxDhzE89 vQQiDNucFu7kjSsuvJavSM9r VCPqovxnq070UbHae9fyWFZfwP GsUXhdQXU7C83dh0D7VLHnOBJi HUR4aRJ0rN2yyFpwjglnhATf fLlnbqBapAthPFwdRGemZ967RQ KgvUzzLnAfpIHlB3txhlNLFA5u OjwvdGQ+IPFwQST1vAvcZCpk IFIftW9bKYUeK2k0DfIdOmO6LY ptF4QdyaC0KWMhxACkFKYtbLFH wF2sbjmdz0suzgsnGzUlSWIt QVj0WZe3CWPojInkYhDhBOC8Ok C6NBO7hVCtwJ1mjZtbfnheeG6l Oyc+RklOOjwvdGQ+PHRkIHN0 vAtxPGfuEJLbyE7tLYWhK1u6Nf AjEmB9VYlbO7KauvU1ELYsgSHn LMGkcDGGhY3myttye9qtlhal VkLkVWIqKBj5DTg0WUHneXpaDg PbXSO4ClX0DQJ5yBSnzF6hhZnv gwxbuO0oUok+TVJOOjwvdGQ+ LOWqWNB0aWqiMWzzVJHbhS1kWE PmC6n4NaRmFhD3TGjqX7OhbmA0 ZPCpsAMlAMNhwDNLwY4erezm z8tnvwyaMuOcGIPxHNc3CBh7AS FieDstOdPaCME6XzX6EFI0oFXs wO6nyOpeutfglA7cHhx+UGF5 NMG9KO88SP33Q7BpItgbkIPgcL U+PHRhYmxlIHdpZHRoPScxMDAl FmPntAkyEA1iKb6cCCXiZNQu bGxhcHNl (more content not included)... Normal [facility] Consultation Noteon 09-21-19 Consultation Note [id number]#1.00CD:[address] [facility] Lab Reportson 09-20-2022 Lab Reports [id number]#1.00CD:[address] [facility] RAD - Ultrasound Reporton RAD - Ultrasound Report [id number]#1.00CD:[address] [facility] Outside Recordson 09-16-2022 Outside Records [id number]#1.00CD:[address] [facility] Auto Diffon 09-14-2022 Basophils/100 WBC (Bld) 0.5 % Normal 0.0-2.0 [facility] Comment on above: Order Comment: Order Added by Discern Expert. Performed By: #### 2 [id number], [id number], [id number], [id number] #### [facility] Laboratory [address] [place] [address] Basophils/Leukocytes Auto (Bld) [Pure # fraction] 0.0 E9/L Normal 0.0-0.2 [facility] Comment on above: Order Comment: Order Added by Discern Expert. Performed By: #### 2 [id number], [id number], [id number], [id number], [id number] #### [facility] [address] [place] [address] 64572 Eosinophils/100 WBC (Bld) 3.2 % Normal 0.0-8.0 [facility] Comment on above: Order Comment: Order Added by Discern Expert. Performed By: #### 2 [id number], [id number], [id number], [id number], [id number] #### [facility] [address] [place] [address] [id number] Eosinophils/Leukocytes Auto (Bld) [Pure # fraction] 0.2 E9/L Normal 0.0-0.5 [facility] Comment on above: Order Comment: Order Added by Discern Expert. Performed By: #### 2 [id number], [id number], [id number], [id number], [id number] #### [facility] [address] [place] [address] 81773 Lymphocytes/100 WBC (Bld) 17.6 % Normal 14.0-50.0 [facility] Comment on above: Order Comment: Order Added by Discern Expert. Performed By: #### 2 [id number], [id number], [id number], [id number], [id number] #### [facility] [address] [place] [address] [id number] Lymphocytes/Leukocytes Auto (Bld) [Pure # fraction] 0.9 E9/L Low 1.0-4.0 [facility] Comment on above: Order Comment: Order Added by Discern Expert. Performed By: #### 2 [id number], [id number], [id number], [id number], [id number] #### [facility] [address] [place] [address] 03651 Monocytes/100 WBC (Bld) 10.2 % Normal 4.0-14.0 [facility] Comment on above: Order Comment: Order Added by Discern Expert. Performed By: #### 2 191710, 26727282, 8561451, 24565379, 6049299 #### [facility] [address] [place] [address] 27369 Monocytes/Leukocytes Auto (Bld) [Pure # fraction] 0.5 E9/L Normal 0.2-1.0 [facility] Comment on above: Order Comment: Order Added by Discern Expert. Performed By: #### 2 561030, 23493622, 6811745, 93375673, 7005678 #### [facility] [address] [place] [address] Neutrophils/100 WBC (Bld) 68.5 % Normal 36.0-75.0 [facility] Comment on above: Order Comment: Order Added by Discern Expert. Performed By: #### 2 068938, 68777114, 2246897, 58015975, 9332209 #### [facility] [address] [place] [address] Neutrophils/Leukocytes Auto (Bld) [Pure # fraction] 3.6 E9/L Normal 2.0-7.5 [facility] Comment on above: Order Comment: Order Added by Discern Expert. Performed By: #### 2 224116, 76351787, 3237227, 71813622, 4069264 #### [facility] [address] [place] [address] BMPon 09-14-2022 Anion gap [Moles/Vol] 10 mmol/L Normal 6-16 [facility] Comment on above: Performed By: #### 2 373819, 61105355, 0176828, 92630218, 3381536 #### [facility] [address] [place] [address] Calcium [Mass/Vol] 8.6 mg/dL Low 8.9-11.1 [facility] Comment on above: Performed By: #### 2 494965, 77997672, 9514852, 24601956, 5019099 #### [facility] [address] [place] [address] Chloride [Moles/Vol] 108 mmol/L Normal 101-111 [facility] Comment on above: Performed By: #### 2 407447, 79553056, 5428999, 58023567, 9342432 #### [facility] [address] [place] [address] CO2 [Moles/Vol] 23 mmol/L Normal 21-31 [facility] Comment on above: Performed By: #### 2 453998, 72132017, 7364064, 09463020, 9236703 #### [facility] [address] [place] [address] Creatinine [Mass/Vol] 2.1 mg/dL High 0.5-1.3 [facility] Comment on above: Performed By: #### 2 201530, 03501298, 2168622, 17857698, 0426281 #### [facility] [address] [place] [address] Glucose [Mass/Vol] 89 mg/dL Normal 55-199 [facility] Comment on above: Result Comment: If t his glucose result represents a fasting glucose, interpretation should refer to the following reference range: 55-99 mg/dL Performed By: #### 2 770457, 02270798, 5751914, 90765552, 0255313 #### [facility] [address] [place] [address] Potassium [Moles/Vol] 4.1 mmol/L Normal 3.5-5.3 [facility] Comment on above: Performed By: #### 2 810534, 16650493, 7118515, 19617411, 7840303 #### [facility] [address] [place] [address] Sodium [Moles/Vol] 137 mmol/L Normal 135-145 [facility] Comment on above: Performed By: #### 2 651529, 22887416, 5679293, 79143420, 1474403 #### [facility] [address] [place] [address] Urea nitrogen [Mass/Vol] 26 mg/dL High 5-21 [facility] Comment on above: Performed By: #### 2 422257, 54108664, 6081181, 12603522, 3717949 #### [facility] [address] [id number] Urea nitrogen/Creatinine [Mass ratio] 12 No Units Normal 10-20 [facility] Comment on above: Performed By: #### 2 258857, 08747210, 6558322, 71430935, 1510900 #### [facility] [address] [id number] CBC w/ Auto Diffon 3 Erythrocyte distribution width (RBC) [Ratio] 14.0 % Normal 10.9-14.2 [facility] Comment on above: Performed By: #### 2 197332, 86325001, 2429943, 04511209, 0437343 #### [facility] [address] [place], [place] [address] Hematocrit (Bld) [Volume fraction] 31.6 % Low 37.7-49.0 [facility] Comment on above: Performed By: #### 2 364651, 89552796, 9633072, 40527204, 3882793 #### [facility] [address] 1225257 Hemoglobin (Bld) [Mass/Vol] 10.9 g/dL Low 13.5-17.5 [facility] Comment on above: Performed By: #### 2 999955, 43008942, 9951308, 67775600, 5007407 #### [facility] [address] [place] [address]2619 MCH (RBC) [Entitic mass] 33.0 pg Normal 27.0-34.0 [facility] Comment on above: Performed By: #### 2 878531, 14071075, 4213801, 29320416, 0454187 #### [facility] [address] [place] [address] MCHC (RBC) [Mass/Vol] 34.5 g/dL Normal 31.4-36.0 [facility] Comment on above: Performed By: #### 2 315543, 69602601, 6291866, 25135433, 2933182 #### [facility] [address] [place] [address] MCV (RBC) [Entitic vol] 95.8 fL Normal 80.0-100.0 [facility] Comment on above: Performed By: #### 2 037369, 48663292, 4102823, 52872775, 8854295 #### [facility] [address] [place] [address] Platelet mean volume (Bld) [Entitic vol] 8.9 fL Normal 6.4-10.8 [facility] Comment on above: Performed By: #### 2 973962, 53596844, 4482673, 96120776, 8385912 #### [facility] [address] [place] [address] Platelets (Bld) [#/Vol] 151.0 E9/L Normal 150.0-500. 0 [facility] Comment on above: Performed By: #### 2 494063, 23000428, 3372194, 04046144, 9591142 #### [facility] [address] [place] [address] 25447 RBC (Bld) [#/Vol] 3.3 E12/L Low 4.3-5.9 [facility] Comment on above: Performed By: #### 2 842672, 99471639, 7850050, 29863874, 7701861 #### [facility] [address] [place] [address] 30509 WBC corrected for nucl RBC Auto (Bld) [#/Vol] 5.3 E9/L Normal 4.0-11.0 [facility] Comment on above: Performed By: #### 2 981899, 70635013, 2534653, 12421963, 8593462 #### [facility] [address] [place] [address] Consent for Treatmenton 08-26 Consent for Treatment [id number] [facility] PT & PTTon 09-14-2022 aPTT Coag (PPP) [Time] 29.7 second(s) Normal 25.1-36.5 [facility] Comment on above: Result Comment: Para meter [...] the same coagulation reagent and instrumentation as [facility]. Currently there are no coagulation studies available worldwide for children to 14 days, and no normal ranges. Heparin therapeutic range (represented by Anti-Factor Xa activity of 0.2 - 0.4 U/mL) corresponds to PTT of 56.6 - 109.0 sec. Performed By: #### 2 499783, 44758774, 0415818, 78678404, 1900963 #### [facility] [address] [place] [address] INR Coag (PPP) [Relative time] 1.0 {INR} Invalid Interpretation Code [facility] Comment on above: Result Comment: INR results are specifically intended to assess patients stabilized on long-term Anticoagulation therapy suggested INR?s ?Less Intensive Anticoagulation? 2.0 ? 3.0 Conventional Range 3.0 ? 4.5 Performed By: #### 2 607464, 16699693, 7152772, 45502306, 6679861 #### [facility] [address] [place] [address] PT Coag (PPP) [Time] 11.7 second(s) Normal 9.4-12.5 [facility] Comment on above: Result Comment: 15 d [...] the same coagulation reagent and instrumentation as [facility]. Currently there are no coagulation studies available worldwide for children to 14 days, and no normal ranges. Performed By: #### 2 161811, 51424136, 9330351, 83409313, 5619247 #### [facility] [address] [place] [address] PTH INTACTon 09-14-2022 PTH, Intact 51 pg/mL Normal 15-65 [facility] Comment on above: Performed By: #### T SH, LIPID, T4, FT3, CMP #### [facility] [address] [place], [place] [address] Dr. Alicia Patel UA With Cult Reflexon 2022 Bacteria LM Ql (Urine sed) TRACE Normal Trace [facility] Comment on above: Performed By: #### 2 405062, 97859592, 4424505, 91283874, 3787544 #### [facility] [address] [place] [address] Bilirubin Ql (U) Negative Normal Negative [facility] Comment on above: Performed By: #### 2 057474, 82300680, 2549755, 87513816, 2712968 #### [facility] [address] [place] [address] Clarity (U) CLOUDY Abnormal Clear [facility] Comment on above: Performed By: #### 2 164612, 33542238, 0503996, 20600571, 3229228 #### [facility] [address] [place] [address] Color (U) YELLOW Normal Yellow [facility] Comment on above: Performed By: #### 2 619827, 85042564, 8559587, 65211949, 0161166 #### [facility] [address] [place] [address] Epithelial cells.squamous LM.HPF (Urine sed) [#/Area] 0-2 Normal 0-2 [facility] Comment on above: Performed By: #### 2 798012, 67416077, 0744565, 28080114, 3544562 #### [facility] [address] [id number] Glucose Test strip (U) [Mass/Vol] Negative Normal Negative [facility] Comment on above: Performed By: #### 2 981724, 99377542, 6400884, 59368497, 2868236 #### [facility] [address] [place] [address] Hemoglobin Ql (U) 3+ Abnormal Negative [facility] Comment on above: Performed By: #### 2 295067, 47605625, 4886352, 58244262, 2289349 #### [facility] [address] [place] [address] Ketones (U) [Mass/Vol] Negative Normal Negative Fi [facility] Comment on above: Performed By: #### 2 348818, 51534629, 7766644, 60563906, 8567393 #### [facility] [address] [place] [address] [place].plasma/[place] .RBC (Bld) [Mass ratio] >30 Abnormal 0-3 [facility] Comment on above: Performed By: #### 2 173684, 80926183, 9542267, 92169329, 9160355 #### [facility] [address] [place] [address] Mucus Ql (Urine sed) TRACE Normal [facility] Comment on above: Performed By: #### 2 740216, 04734546, 9206752, 69049089, 0339077 #### [facility] [address] [place] [address] Nitrite Ql (U) Negative Normal Negative [facility] Comment on above: Performed By: #### 2 342410, 82022490, 2140517, 03268045, 4125926 #### [facility] [address] [place] [address] 12442 pH (U) 6.0 [pH] Invalid Interpretation Code 5.0-9.0 [facility] Comment on above: Performed By: #### 2 382124, 16988434, 7448644, 64694519, 4050200 #### [facility] [address] [place] [address] Protein (U) [Mass/Vol] 2+ Abnormal Negative Fi [facility] Comment on above: Performed By: #### 2 749420, 14907167, 0728387, 02885243, 1548980 #### [facility] [address] [place] [address]59 Specific gravity (U) [Rel density] 1.025 Invalid Interpretation Code 1.005-1.[address] [facility] Comment on above: Performed By: #### 2 166346, 06056319, 2404549, 63474348, 5445625 #### [facility] [address] [place] [address]40 Type of Urine collection method Clean Catch Normal [facility] Comment on above: Performed By: #### 2 007220, 76364161, 6663847, 74577580, 1119849 #### [facility] [address] [place] [address] 59037 Urobilinogen Qn (U) 0.2 {Wil'U}/dL Normal 0.0-1.0 [facility] Comment on above: Performed By: #### 2 278258, 50897838, 0352583, 96879189, 0403802 #### [facility] [address] [place] [address] 85281 WBC Auto Ql (U) TRACE Abnormal Negative [facility] Comment on above: Performed By: #### 2 453626, 21042115, 2139388, 89344161, 0058268 #### [facility] [address] [place] [address] WBC casts LM.LPF (Urine sed) [#/Area] 0-[address] [facility] Comment on above: Performed By: #### 2 768199, 55592293, 2978465, 39576962, 2041891 #### [facility] [address] [place] [address] WBC LM.HPF (Urine sed) [#/Area] 0-5 Normal 0-5 [facility] Comment on above: Performed By: #### 2 839983, 76114414, 6985145, 52740926, 7211855 #### [facility] [address] [place] [address] XR Chest 2 Viewson 3 XR Chest [...] mGy = na DAP = na Normal [facility] eGFRon 09-14-2022 GFR/1.73 sq M.predicted among blacks MDRD (S/P/Bld) [Vol rate/Area] 37 mL/min/1.73 m2 Low >=59 [facility] Comment on above: Order Comment: Order added by Discern Expert. Result Comment: eGFR is race adjusted. AA=. Performed By: #### 2 223890, 83887392, 3817256, 53008110, 2746521 #### [facility] [address] [place] [address] GFR/1.73 sq M.predicted among non-blacks MDRD (S/P/Bld) [Vol rate/Area] 31 mL/min/1.73 m2 Low >=59 [facility] Comment on above: Order Comment: Order added by Discern Expert. Result Comment: [employer] Professor christa kidney disease could be indicated at eGFR's of less than 60 mL/min/1.73m2. Kidney failure is indicated at less than 15 mL/min/1.73m2. Performed By: #### 2 935775, 87297206, 3540538, 76150046, 3959136 #### [facility] [address] [place] [address] HEMOGRAM AND PLATELon 2022 Hematocrit (Bld) [Volume fraction] 32.9 % Critically low 42.0-54.0 [facility] Comment on above: Performed By: #### T SH, LIPID, T4, FT3, CMP #### [facility] [address] [place] [address] Dr. Alicia Patel Hemoglobin (Bld) [Mass/Vol] 10.9 g/dL Critically low 14.0-18.0 [facility] Comment on above: Performed By: #### T SH, LIPID, T4, FT3, CMP #### [facility] [address] [place] [address] Dr. Alicia Patel MCH (RBC) [Entitic mass] 32.6 pg Normal 25.9-34.0 [facility] Comment on above: Performed By: #### T SH, LIPID, T4, FT3, CMP #### [facility] [address] [place] [address] Dr. Alicia Patel MCHC (RBC) [Mass/Vol] 33.1 g/dL Normal 29.9-35.2 [facility] Comment on above: Performed By: #### T SH, LIPID, T4, FT3, CMP #### [facility] [address] [place] [address] Dr. Alicia Patel MCV (RBC) [Entitic vol] 98.5 fL Critically high 80.0-94.0 [facility] Comment on above: Performed By: #### T SH, LIPID, T4, FT3, CMP #### [facility] [address] [place] [address] Dr. Alicia Patel PLT 145 103/ul Critically low 150-450 [facility] Comment on above: Performed By: #### T SH, LIPID, T4, FT3, CMP #### [facility] [address] [place] [address] Dr. Alicia Patel RBC 3.34 106/ul Critically low 4.70-6.10 [facility] Comment on above: Performed By: #### T SH, LIPID, T4, FT3, CMP #### [facility] [address] [place] [address] Dr. Alicia Patel WBC 5.1 103/ul Normal 4.0-11.0 [facility] Comment on above: Performed By: #### T SH, LIPID, T4, FT3, CMP #### [facility] [address] [place] [address] Dr. Alicia Patel MAGNESIUMon 09-13-2022 Magnesium [Mass/Vol] 1.5 mg/dL Critically low 1.8-2.4 [facility] Comment on above: Performed By: #### T SH, LIPID, T4, FT3, CMP #### [facility] [address] [place] [address] Dr. Alicia Patel RENAL FUNCTION PANELon 09-13 Albumin [Mass/Vol] 3.5 g/dL Normal 3.4-5.0 [facility] Comment on above: Performed By: #### U RTPCR #### [facility] [address] [place] [address] Dr. Alicia Patel Calcium [Mass/Vol] 8.4 mg/dL Critically low 8.5-10.1 [facility] Comment on above: Performed By: #### U RTPCR #### [facility] [address] [address] [address] Alicia Patel Chloride [Moles/Vol] 107 mmol/L Normal 98-107 [facility] Comment on above: Performed By: #### U RTPCR #### [facility] [address] [address] [address] Alicia Patel CO2 [Moles/Vol] 25.1 mmol/L Normal 21.0-32.0 [facility] Comment on above: Performed By: #### U RTPCR #### [facility] [address] [address] [address] Alicia Patel Creatinine [Mass/Vol] 1.96 mg/dL Critically high 0.70-1.30 [facility] Comment on above: Performed By: #### U RTPCR #### [facility] [address] [place] [address] Dr. Alicia Patel EGFR-AF CYPRIOT 40 mL/min/1.73m2 Critically low >=60 [facility] Comment on above: Performed By: #### U RTPCR #### [facility] [address] [place] [address] Dr. Alicia Patel EGFR-NON AF CYPRIOT 33 mL/min/1.73m2 Critically low >=60 [facility] Comment on above: Performed By: #### U RTPCR #### [facility] [address] [place] [address] Dr. Alicia Patel Glucose [Mass/Vol] 151 mg/dL Critically high 74-106 [facility] Comment on above: Performed By: #### U RTPCR #### [facility] [address] [address] [address] Alicia Patel Phosphate [Mass/Vol] 3.5 mg/dL Normal 2.6-4.7 [facility] Comment on above: Performed By: #### U RTPCR #### [facility] [address] [address] [address] Alicia Patel Potassium [Moles/Vol] 4.3 mmol/L Normal 3.5-5.1 [facility] Comment on above: Performed By: #### U RTPCR #### [facility] [address] [place] [address] Dr. Alicia Patel Sodium [Moles/Vol] 142 mmol/L Normal 136-145 [facility] Comment on above: Performed By: #### U RTPCR #### [facility] [address] [place] [address] Dr. Alicia Patel Urea nitrogen [Mass/Vol] 23.0 mg/dL Critically high 7.0-18.0 [facility] Comment on above: Performed By: #### U RTPCR #### [facility] [address] [place] [address] Dr. Alicia Patel UA RANDOM W/MICROSCOPICon BACTERIA TRACE Abnormal NONE SEEN [facility] Comment on above: Performed By: #### T SH, LIPID, T4, FT3, CMP #### [facility] [address] [place] [address] Dr. Alicia Patel Bilirubin Ql (U) Negative Normal NEGATIVE [facility] Comment on above: Performed By: #### T SH, LIPID, T4, FT3, CMP #### [facility] [address] [place] [address] Dr. Alicia Patel CAST NONE SEEN Normal NONE SEEN [facility] Comment on above: Performed By: #### T SH, LIPID, T4, FT3, CMP #### [facility] [address] [place] [address] Dr. Alicia Patel Clarity (U) CLEAR Normal CLEAR [facility] Comment on above: Performed By: #### T SH, LIPID, T4, FT3, CMP #### [facility] [address] [place] [address] Dr. Alicia Patel Color (U) LT. YELLOW Normal YELLOW [facility] Comment on above: Performed By: #### T SH, LIPID, T4, FT3, CMP #### [facility] [address] [place] [address] Dr. Alicia Patel Crystals LM Nom (Urine sed) NONE SEEN Normal NONE SEEN [facility] Comment on above: Performed By: #### T SH, LIPID, T4, FT3, CMP #### [facility] [address] [address] [address] Alicia Patel Epithelial cells LM Ql (Urine sed) RARE Normal NONE SEEN /RARE [facility] Comment on above: Performed By: #### T SH, LIPID, T4, FT3, CMP #### [facility] [address] [address] [address] Alicia Patel Glucose Ql (U) 500 mg/dl Abnormal NEGATIVE [facility] Comment on above: Performed By: #### T SH, LIPID, T4, FT3, CMP #### [facility] [address] [address] [address] Alicia Patel Hemoglobin Ql (U) LARGE Abnormal NEGATIVE [facility] Comment on above: Performed By: #### T SH, LIPID, T4, FT3, CMP #### [facility] [address] [place] [address] Dr. Alicia Patel Ketones Ql (U) Negative Normal NEGATIVE [facility] Comment on above: Performed By: #### T SH, LIPID, T4, FT3, CMP #### [facility] [address] [place] [address] Dr. Alicia Patel LEUKOCYTES Negative Normal NEGATIVE [facility] Comment on above: Performed By: #### T SH, LIPID, T4, FT3, CMP #### [facility] [address] [address] [address] Alicia Patel MUCOUS NONE SEEN Normal NONE SEEN [facility] Comment on above: Performed By: #### T SH, LIPID, T4, FT3, CMP #### [facility] [address] [address] [address] Alicia Patel Nitrite Ql (U) Negative Normal NEGATIVE [facility] Comment on above: Performed By: #### T SH, LIPID, T4, FT3, CMP #### [facility] [address] [address] [address] Alicia Patel pH (U) 6.0 [pH] Normal 5-9 [facility] Comment on above: Performed By: #### T SH, LIPID, T4, FT3, CMP #### [facility] [address] [place] [address] Dr. Alicia Patel RBC 20-50 Abnormal 0-2 [facility] Comment on above: Performed By: #### T SH, LIPID, T4, FT3, CMP #### [facility] [address] [place] [address] Dr. Alicia Patel SPEC GRAVITY 1.020 Normal 1.005-<=1. 025 [facility] Comment on above: Performed By: #### T SH, LIPID, T4, FT3, CMP #### [facility] [address] [place] [address] Dr. Alicia Patel UA PROTEIN 100 mg/dl Abnormal NEGATIVE/ TRACE [facility] Comment on above: Performed By: #### T SH, LIPID, T4, FT3, CMP #### [facility] [address] [place] [address] Dr. Alicia Patel Urobilinogen Qn (U) 0.2 {Wil'U}/dL Normal 0.2 - 1. 0 [facility] Comment on above: Performed By: #### T SH, LIPID, T4, FT3, CMP #### [facility] [address] [place] [address] Dr. Alicia Patel WBC 0-2 Abnormal NONE SEEN [facility] Comment on above: Performed By: #### T SH, LIPID, T4, FT3, CMP #### [facility] [address] [place] [address] Dr. Alicia Patel URIC ACID SERUMon 09-13-2022 Urate [Mass/Vol] 5.8 mg/dL Normal 3.5-7.2 [facility] Comment on above: Performed By: #### U RTPCR #### [facility] [address] [place] [address] Dr. Alicia Patel URINE T PROTEIN CREAT RATIOo n 09-13-2022 Protein (U) [Mass/Vol] 122.4 mg/dL Critically high <=12.0 [facility] Comment on above: Performed By: #### U RTPCR #### [facility] [address] [place] [address] Dr. Alicia Patel UR PROT CREAT RAT 1.38 Normal [facility] Comment on above: Performed By: #### U RTPCR #### [facility] [address] [address] [address] Alicia Patel URINE CREAT 88.74 mg/dL Normal 20.00-300. 00 [facility] Comment on above: Performed By: #### U RTPCR #### [facility] [address] [address] [address] Alicia Patel VITAMIN D 25 OHon 09-13-2022 VIT D 25-OH 58.0 ng/mL Normal [facility] Comment on above: Performed By: #### T SH, LIPID, T4, FT3, CMP #### [facility] [address] [place] [address] Dr. Alicia Patel VIT D RANGES SEE BELOW Normal [facility] Comment on above: Result Comment: <20 ng/mL Vit D deficient 20 - <30 ng/mL Vit D insufficient 30 - 100 ng/mL Vit D sufficient >100 ng/mL Potential Toxicity Performed By: #### T SH, LIPID, T4, FT3, CMP #### [facility] [address] [place] [address] Dr. Alicia Patel Pre-Certification Formon Pre-Certification Form [id number]#1.00CD:[address] [facility] RAD - Ultrasound Reporton RAD - Ultrasound Report [id number]#1.00CD:[address] [facility] Screenson 09-07-2022 Screens [id number]#1.00CD:[address] [facility] Patient Educationon 09-07-19 23 Patient Education Urology [...] these instructions at home: Medicines ? Take [id number] and prescription medicines only as told by [...] 11/29/2008 Document Revised: 10/30/2019 Document Reviewed: 10/30/2019 [employer] Patient Education ? 2019 [employer]. Isamar Carrillo [facility] Urology Office/Clinic Noteon 09-06-2022 Urology Office/Clinic Note Chief Complaint Pt is here for [facility] [place] f/u HPI Staff Victorino is a 82 y.o. male here for hospital follow up. Pt was seen at [facility] Previous Dx: acute kidney failure, BPH w/ urinary obstruction, elevated PSA, ED, flank pain, hydronephrosis, kidney stone, prostate cancer, ureteral stone, urinary retention. S/P cysto/stent removal done on 04/15/20, cysto/bilateral dilation ureteral/stent done on 03/11/20, TURP done on 08/01/19, biopsy of prostate done on 07/04/19, cysto/RG/laser done on 06/27/19. Pt presented to [facility] on 08/11/22 for shortness of breath. Pt presented [place] [facility] later that evening on 08/11/22 for abdominal [...] the prior CT scan performed at the [facility]. The options include both nephroscopic/ureteroscopic approach [...] off asp (more content not included)... Normal [facility] Comment on above: Result Comment: Elec tronically [...] TYLER MONSIVAIS Date: 2022-09-01 09:33 Normal [facility] CT chest wo con high reson 0 08-31-2022 CT chest wo con high res [facility] Main [place] [address] [place] [id number] [address] Scan Report Signed Patient: Victorino Smyth MR#: [id number] : 1940 Acct:[id number] Age/Sex: 82 / M ADM Date: 08/31/22 Loc: CT Room: Type: [facility] Attending Dr: Hiral Interiano MD Copies to: Hiral Interiano MD Ordering Provider: Hiral Interiano MD Date of Service: 08/31/22 CT/CT chest wo con high res: follow up left lower lung nodule CT CHEST WITHOUT IV CONTRAST: High-resolution protocol. CLINICAL HISTORY: Lung nodule seen on outside imaging. COMPARISON: CT abdomen and pelvis from [facility] 08/11/2022 TECHNIQUE: Spiral images were obtained [...] Perez Jr., DManoharOManohar08/31/2022 3:25 PM Dictation Location: [place] [address] Transcribed By: [facility] 08/31/22 1525 Dictated By: Ifeanyi Perez Jr, DO 08/31/22 1520 Signed By: 08/31/22 1525 Normal [facility] PSA, FREE AND TOTAL RATIOon 08-25-2022 % Free PSA 13.7 % Normal [facility] Comment on above: Result Comment: The [...] T SH, LIPID, T4, FT3, CMP #### [facility] [address] [place] [address] Dr. Alicia Patel Prostate specific Ag [Mass/Vol] 6.2 ng/mL Critically high 0.0-4.0 [facility] Comment on above: Result Comment: Dwight JUAREZ methodology. . According to the [place] [employer], Serum PSA should decrease and [...] T SH, LIPID, T4, FT3, CMP #### [facility] [address] [address] [address] Alicia Patel PSA, Free 0.85 ng/mL Normal N/A [facility] Comment on above: Result Comment: Dwight linares ECLIA methodology. Performed By: #### T SH, LIPID, T4, FT3, CMP #### [facility] [address] [place] [address] Dr. Alicia DAVALOS BLD IMMUNO SCREENon 07-29 OCCULT BLOOD Negative Normal NEGATIVE [facility] Comment on above: Performed By: #### T SH, LIPID, T4, FT3, CMP #### [facility] [address] [place] [address] Dr. Alicia Patel CBC AUTO DIFFon 08-21-2022 BASO # 0.0 103/ul Normal 0.0-0.1 [facility] Comment on above: Performed By: #### U RTPCR #### [facility] [address] [place] [address] Dr. Alicia Patel Basophils/100 WBC (Bld) 0.3 % Normal 0.2-2.0 [facility] Comment on above: Performed By: #### U RTPCR #### [facility] [address] [place] [address] Dr. Alicia Patel EO # 0.2 103/ul Normal 0.0-0.7 [facility] Comment on above: Performed By: #### U RTPCR #### [facility] [address] [place] [address] Dr. Alicia Patel Eosinophils/100 WBC (Bld) 3.2 % Normal 0.9-7.0 [facility] Comment on above: Performed By: #### U RTPCR #### [facility] [address] [place] [address] Dr. Alicia Patel Erythrocyte distribution width (RBC) [Ratio] 12.9 % Normal 11.0-15.0 [facility] Comment on above: Performed By: #### U RTPCR #### [facility] [address] [place] [address] Dr. Alicia Patel Hematocrit (Bld) [Volume fraction] 35.4 % Critically low 42.0-54.0 [facility] Comment on above: Performed By: #### U RTPCR #### [facility] [address] [place] [address] Dr. Alicia Patel Hemoglobin (Bld) [Mass/Vol] 11.7 g/dL Critically low 14.0-18.0 [facility] Comment on above: Performed By: #### U RTPCR #### [facility] [address] [place] [address] Dr. Alicia Patel IG # 0.08 10e3/ul Critically high 0.00-0.03 [facility] Comment on above: Performed By: #### U RTPCR #### [facility] [address] [place] [address] Dr. Alicia Patel IG % 1.2 % Critically high 0.0-0.5 [facility] Comment on above: Performed By: #### U RTPCR #### [facility] [address] [place] [address] Dr. Alicia Patel LYMPH # 1.1 103/ul Critically low 1.2-3.8 [facility] Comment on above: Performed By: #### U RTPCR #### [facility] [address] [place] [address] Dr. Alicia Patel Lymphocytes/100 WBC (Bld) 16.6 % Critically low 20.5-60.0 [facility] Comment on above: Performed By: #### U RTPCR #### [facility] [address] [place] [address] Dr. Alicia Patel MANUAL DIFF REQ NO Normal [facility] Comment on above: Performed By: #### U RTPCR #### [facility] [address] [place] [address] Dr. Alicia Patel MCH (RBC) [Entitic mass] 32.4 pg Normal 25.9-34.0 [facility] Comment on above: Performed By: #### U RTPCR #### [facility] [address] [place] [address] Dr. Alicia Patel MCHC (RBC) [Mass/Vol] 33.1 g/dL Normal 29.9-35.2 [facility] Comment on above: Performed By: #### U RTPCR #### [facility] [address] [address] [address] Alicia Patel MCV (RBC) [Entitic vol] 98.1 fL Critically high 80.0-94.0 [facility] Comment on above: Performed By: #### U RTPCR #### [facility] [address] [place] [address] Dr. Alicia Patel MONO # 0.6 103/ul Normal 0.3-0.8 [facility] Comment on above: Performed By: #### U RTPCR #### [facility] [address] [place] [address] Dr. Alicia Patel Monocytes/100 WBC (Bld) 8.8 % Normal 1.7-12.0 [facility] Comment on above: Performed By: #### U RTPCR #### [facility] [address] [place] [address] Dr. Alicia Patel NEUT # 4.8 103/ul Normal 1.4-6.5 [facility] Comment on above: Performed By: #### U RTPCR #### [facility] [address] [place] [address] Dr. Alicia Patel Neutrophils/100 WBC (Bld) 69.9 % Normal 43.0-75.0 [facility] Comment on above: Performed By: #### U RTPCR #### [facility] [address] [place] [address] Dr. Alicia Patel Platelet mean volume (Bld) [Entitic vol] 10.4 fL Normal 9.5-13.5 [facility] Comment on above: Performed By: #### U RTPCR #### [facility] [address] [place] [address] Dr. Alicia Patel PLT 200 103/ul Normal 150-450 [facility] Comment on above: Performed By: #### U RTPCR #### [facility] [address] [place] [address] Dr. Alicia Patel RBC 3.61 106/ul Critically low 4.70-6.10 [facility] Comment on above: Performed By: #### U RTPCR #### [facility] [address] [address] [address] Alicia Patel WBC 6.8 103/ul Normal 4.0-11.0 [facility] Comment on above: Performed By: #### U RTPCR #### [facility] [address] [place] [address] Dr. Alicia Patel FREE T3on 08-21-2022 FREE T3 1.91 pg/mlL Critically low 2.18-3.98 [facility] Comment on above: Performed By: #### T SH, LIPID, T4, FT3, CMP #### [facility] [address] [place] [address] Dr. Alicia Patel GLYCOHEMOGLOBIN A1Con 2022 ADA RECOMMENDATION SEE BELOW Normal [facility] Comment on above: Result Comment: ADA RECOMMENDED LIMIT 4.0 - 6.0 ADA THERAPEUTIC TARGET < 7.0 ACTION SUGGESTED > 7.0 Performed By: #### T SH, LIPID, T4, FT3, CMP #### [facility] [address] [place] [address] Dr. Alicia Patel Glucose [Mass/Vol] 194 mg/dL Normal [facility] Comment on above: Performed By: #### T SH, LIPID, T4, FT3, CMP #### [facility] [address] [place] [address] Dr. Alicia Patel HbA1c (Bld) [Mass fraction] 8.4 % Critically high 4.5-6.2 [facility] Comment on above: Performed By: #### T SH, LIPID, T4, FT3, CMP #### [facility] [address] [place] [address] Dr. Alicia Patel LIPID PROFILEon 08-21-2022 CHOL-HDL RATIO NORM SEE BELOW Normal [facility] Comment on above: Result Comment: 3.3 - 4.4 LOW RISK 4.4 - 7.1 AVERAGE RISK 7.1 - 11.0 MODERATE RISK >11.0 HIGH RISK Performed By: #### T SH, LIPID, T4, FT3, CMP #### [facility] [address] [place] [address] Dr. Alicia Patel Cholesterol [Mass/Vol] 120 mg/dL Normal <=200 [facility] Comment on above: Performed By: #### T SH, LIPID, T4, FT3, CMP #### [facility] [address] [address] [address] Ailcia Patel Cholesterol in HDL [Mass/Vol] 30 mg/dL Critically low 40-60 [facility] Comment on above: Performed By: #### T SH, LIPID, T4, FT3, CMP #### [facility] [address] [address] [address] Alicia Patel Cholesterol in LDL [Mass/Vol] 59.8 mg/dL Normal [facility] Comment on above: Performed By: #### T SH, LIPID, T4, FT3, CMP #### [facility] [address] [place] [address] Dr. Alicia Patel Cholesterol.total/Chol esterol in HDL [Mass ratio] 4.0 {ratio} Normal [facility] Comment on above: Performed By: #### T SH, LIPID, T4, FT3, CMP #### [facility] [address] [place] [address] Dr. Alicia Patel HDL NORMAL > or = 60 mg/dl - LO W CARDIOVASCULAR RISK <40 mg/dl - HIGH CARDIOVASCULAR RISK Normal [facility] Comment on above: Performed By: #### T SH, LIPID, T4, FT3, CMP #### [facility] [address] [place] [address] Dr. Alicia Patel LDL CALC NORMAL SEE BELOW Normal [facility] Comment on above: Result Comment: <100 mg/dl OPTIMAL 100 - 129 mg/dl NEAR OR ABOVE OPTIMAL 130 - 159 mg/dl BORDERLINE HIGH 160 - 189 mg/dl HIGH >190 mg/dl VERY HIGH Performed By: #### T SH, LIPID, T4, FT3, CMP #### [facility] [address] [place] [address] Dr. Alicia Patel Triglyceride [Mass/Vol] 151 mg/dL Critically high <=150 [facility] Comment on above: Performed By: #### T SH, LIPID, T4, FT3, CMP #### [facility] [address] [address] [address] Alicia Patel VLDL CALC 30.2 mg/dL Normal [facility] Comment on above: Performed By: #### T SH, LIPID, T4, FT3, CMP #### [facility] [address] [place] [address] Dr. Alicia Patel PROF 14(COMP METB)on 023 Albumin [Mass/Vol] 3.3 g/dL Critically low 3.4-5.0 [facility] Comment on above: Performed By: #### T SH, LIPID, T4, FT3, CMP #### [facility] [address] [place] [address] Dr. Alicia Patel Albumin/Globulin [Mass ratio] 0.9 {ratio} Normal [facility] Comment on above: Performed By: #### T SH, LIPID, T4, FT3, CMP #### [facility] [address] [place] [address] Dr. Alicia Patel ALP [Catalytic activity/Vol] 79 U/L Normal 46-116 [facility] Comment on above: Performed By: #### T SH, LIPID, T4, FT3, CMP #### [facility] [address] [address] [address] Alicia Patel ALT [Catalytic activity/Vol] 61 U/L Normal 16-63 [facility] Comment on above: Performed By: #### T SH, LIPID, T4, FT3, CMP #### [facility] [address] [address] [address] Alicia Patel Anion gap [Moles/Vol] 12.6 mmol/L Normal [facility] Comment on above: Performed By: #### T SH, LIPID, T4, FT3, CMP #### [facility] [address] [place] [address] Dr. Alicia Patel AST [Catalytic activity/Vol] 39 U/L Critically high 15-37 [facility] Comment on above: Performed By: #### T SH, LIPID, T4, FT3, CMP #### [facility] [address] [place] [address] Dr. Alicia Patel Bilirubin [Mass/Vol] 0.7 mg/dL Normal 0.2-1.0 [facility] Comment on above: Performed By: #### T SH, LIPID, T4, FT3, CMP #### [facility] [address] [place] [address] Dr. Alicia Patel Calcium [Mass/Vol] 8.9 mg/dL Normal 8.5-10.1 [facility] Comment on above: Performed By: #### T SH, LIPID, T4, FT3, CMP #### [facility] [address] [place] [address] Dr. Alicia Patel Chloride [Moles/Vol] 111 mmol/L Critically high 98-107 [facility] Comment on above: Performed By: #### T SH, LIPID, T4, FT3, CMP #### [facility] [address] [place] [address] Dr. Alicia Patel CO2 [Moles/Vol] 24.0 mmol/L Normal 21.0-32.0 [facility] Comment on above: Performed By: #### T SH, LIPID, T4, FT3, CMP #### [facility] [address] [place] [address] Dr. Alicia Patel Creatinine [Mass/Vol] 1.80 mg/dL Critically high 0.70-1.30 [facility] Comment on above: Performed By: #### T SH, LIPID, T4, FT3, CMP #### [facility] [address] [place] [address] Dr. Alicia Patel EGFR-AF CYPRIOT 44 mL/min/1.73m2 Critically low >=60 [facility] Comment on above: Performed By: #### T SH, LIPID, T4, FT3, CMP #### [facility] [address] [place] [address] Dr. Alicia Patel EGFR-NON AF CYPRIOT 36 mL/min/1.73m2 Critically low >=60 [facility] Comment on above: Performed By: #### T SH, LIPID, T4, FT3, CMP #### [facility] [address] [place] [address] Dr. Alicia Patel Globulin (S) [Mass/Vol] 3.5 g/dL Normal [facility] Comment on above: Performed By: #### T SH, LIPID, T4, FT3, CMP #### [facility] [address] [address] [address] Alicia Patel Glucose [Mass/Vol] 118 mg/dL Critically high 74-106 [facility] Comment on above: Performed By: #### T SH, LIPID, T4, FT3, CMP #### [facility] [address] [address] [address] Alicia Patel Potassium [Moles/Vol] 4.6 mmol/L Normal 3.5-5.1 [facility] Comment on above: Performed By: #### T SH, LIPID, T4, FT3, CMP #### [facility] [address] [place] [address] Dr. Alicia Patel Protein [Mass/Vol] 6.8 g/dL Normal 6.4-8.2 [facility] Comment on above: Performed By: #### T SH, LIPID, T4, FT3, CMP #### [facility] [address] [place] [address] Dr. Alicia Patel Sodium [Moles/Vol] 143 mmol/L Normal 136-145 [facility] Comment on above: Performed By: #### T SH, LIPID, T4, FT3, CMP #### [facility] [address] [place] [address] Dr. Alicia Patel Urea nitrogen [Mass/Vol] 31.0 mg/dL Critically high 7.0-18.0 [facility] Comment on above: Performed By: #### T SH, LIPID, T4, FT3, CMP #### [facility] [address] [place] [address] Dr. Alicia Patel Urea nitrogen/Creatinine [Mass ratio] 17.2 mg/mg Normal [facility] Comment on above: Performed By: #### T SH, LIPID, T4, FT3, CMP #### [facility] [address] [place] [address] Dr. Alicia Patel T4on 08-21-2022 T4 [Mass/Vol] 7.70 ug/dL Normal 4.50-12.10 [facility] Comment on above: Performed By: #### T SH, LIPID, T4, FT3, CMP #### [facility] [address] [place] [address] Dr. Alicia Patel TSHon 08-21-2022 TSH 1.138 uIU/mL Normal 0.358-3.74 0 [facility] Comment on above: Performed By: #### T SH, LIPID, T4, FT3, CMP #### [facility] [address] [place] [address] Dr. Alicia Patel RENAL FUNCTION PANELon 08-18 Albumin [Mass/Vol] 3.3 g/dL Critically low 3.4-5.0 [facility] Comment on above: Performed By: #### U RTPCR #### [facility] [address] [place] [address] Dr. Alicia Patel Calcium [Mass/Vol] 8.3 mg/dL Critically low 8.5-10.1 [facility] Comment on above: Performed By: #### U RTPCR #### [facility] [address] [place] [address] Dr. Alicia Patel Chloride [Moles/Vol] 109 mmol/L Critically high 98-107 [facility] Comment on above: Performed By: #### U RTPCR #### [facility] [address] [place] [address] Dr. Alicia Patel CO2 [Moles/Vol] 22.1 mmol/L Normal 21.0-32.0 [facility] Comment on above: Performed By: #### U RTPCR #### [facility] [address] [place] [address] Dr. Alicia Patel Creatinine [Mass/Vol] 2.14 mg/dL Critically high 0.70-1.30 [facility] Comment on above: Performed By: #### U RTPCR #### [facility] [address] [place] [address] Dr. Alicia Patel EGFR-AF CYPRIOT 36 mL/min/1.73m2 Critically low >=60 [facility] Comment on above: Performed By: #### U RTPCR #### [facility] [address] [address] [address] Alicia Patel EGFR-NON AF CYPRIOT 30 mL/min/1.73m2 Critically low >=60 [facility] Comment on above: Performed By: #### U RTPCR #### [facility] [address] [address] [address] Alicia Patel Glucose [Mass/Vol] 102 mg/dL Normal 74-106 [facility] Comment on above: Performed By: #### U RTPCR #### [facility] [address] [address] [address] Alicia Patel Phosphate [Mass/Vol] 3.1 mg/dL Normal 2.6-4.7 [facility] Comment on above: Performed By: #### U RTPCR #### [facility] [address] [address] [address] Alicia Patel Potassium [Moles/Vol] 3.9 mmol/L Normal 3.5-5.1 [facility] Comment on above: Performed By: #### U RTPCR #### [facility] [address] [address] [address] Alicia Patel Sodium [Moles/Vol] 141 mmol/L Normal 136-145 [facility] Comment on above: Performed By: #### U RTPCR #### [facility] [address] [address] [address] Alicia Patel Urea nitrogen [Mass/Vol] 41.0 mg/dL Critically high 7.0-18.0 [facility] Comment on above: Performed By: #### U RTPCR #### [facility] [address] [address] [address] Alicia Patel ED Note-Physicianon 08-17-19 ED Note-Physician [id number]#1.00CD:[address] [facility] RAD - CT Reporton 08-17-[address]22 RAD - CT Report [id number]#1.00CD:127 [facility] RAD - MISCon 08-17-2022 RAD [facility] [id number]#1.00CD:127 [facility] MIS [id number]#1.00CD:127 [facility] Insurance Correspondence Off iceon 08-16-2022 Insurance Correspondence Office [id number]#1.00CD:127 [facility] Basic Metabolic Panelon 07-28 Creatinine Clr Calc Pharmacy [facility] Comment on above: Result Comment: PERF ORMED BY: [place] [address] PATHOLOGIST [employer] SCOUT DIANDRA LACY M.D. Performed By: #### P T #### [address] Estimated GFR ( Yana 21 [facility] Comment on above: Result Comment: GFR estimated reference range: According to KDOQI guidelines, <60 ml/min/1.73m2 is sufficient to diagnose a patient with chronic kidney disease. Performed By: #### P T #### [address] Estimated GFR (Non- Am 17 [facility] Comment on above: Performed By: #### P T #### [address] Estimated glomerular filtrat ion rate (GFR) non- AmericanOrdered By: Hiral Interiano on 08-15-2022 GFR/1.73 sq M.predicted among non-blacks MDRD (S/P/Bld) [Vol rate/Area] 17 mL/Min [facility] Glucose Glucometer (BldC) [M ass/Vol]Ordered By: Hiral Interiano on 08-15-2022 Glucose [Mass/Vol] 135 mg/dL [facility] Comment on above: Random Glucose Refer ence Range is dependent on time and content of last meal. Glucose of more than 200 mg/dL in a nonstressed, ambulatory subject supports the diagnosis of Diabetes Mellitus. Glucose Poct Glucometerson 0 08-15-2022 Glucose [Mass/Vol] 135 mg/dL Normal [facility] Comment on above: Result Comment: [place] om Glucose Reference Range is dependent on time and content of last meal. Glucose of more than 200 mg/dL in a nonstressed, ambulatory subject supports the diagnosis of Diabetes Mellitus. PERFORMED BY: [place] [address] PATHOLOGIST [employer] SCOUT DIANDRA LACY M.D. Performed By: #### G LULS ####Point of Care testing, Glucose [Mass/Vol] 163 mg/dL Normal [facility] Comment on above: Result Comment: [place] Glucose Reference Range is dependent on time and content of last meal. Glucose of more than 200 mg/dL in a nonstressed, ambulatory subject supports the diagnosis of Diabetes Mellitus. PERFORMED BY: [place] [address] PATHOLOGIST [employer] SCOUT DIANDRA LACY M.D. Performed By: #### P T #### [facility] [address] [place] [address] No Panel InformationOrdered By: Hiral Interiano on [...] Anion gap [Moles/Vol] 10.3 mmol/L Normal 6.0-15.0 [facility] Comment on above: Performed By: #### P T #### [facility] [address] [place] [address] Serum or plasma calcium alpesh urement (mass/volume)Ordered By: Hiral Interiano on 08-15-2022 Calcium [Mass/Vol] 7.7 mg/dL Low 8.2-10.2 [facility] Comment on above: Performed By: #### P T #### [facility] [address] Serum or plasma chloride adina surement (moles/volume)Ordered By: Hiral Interiano on 08-15-2022 Chloride [Moles/Vol] 112 mmol/L Normal 95-114 [facility] Comment on above: Performed By: #### P T #### [address] Serum or plasma creatinine m easurement with calculation of estimated glomerular filtrOrdered By: Hiral Interiano on 08-15-2022 Creatinine [Mass/Vol] 3.46 mg/dL Significan t change up 0.64-1.27 [facility] Comment on above: Delta: 6.60 on 08/14-432 Performed By: #### P T #### [address] Serum or plasma glucose alpesh urement (mass/volume)Ordered By: Hiral Interiano on 08-15-2022 Glucose [Mass/Vol] 140 mg/dL High 70-100 [facility] Comment on above: ADA recommended refe rence rangeRandom Glucose Reference Range is dependent on time and content of last meal. Glucose of more than 200 mg/dL in a nonstressed, ambulatory subject supports the diagnosis of Diabetes Mellitus. Result Comment: [place] om Glucose Reference Range is dependent on time and content of last meal. Glucose of more than 200 mg/dL in a nonstressed, ambulatory subject supports the diagnosis of Diabetes Mellitus. ADA recommended reference range Performed By: #### P T #### [facility] [address] Serum or plasma potassium me asurement (moles/volume)Ordered By: Hiral Interiano on 08-15-2022 Potassium [Moles/Vol] 3.8 mmol/L Normal 3.5-5.1 [facility] Comment on above: Performed By: #### P T #### [address] Serum or plasma sodium measu rement (moles/volume)Ordered By: Hiral Interiano on 08-15-2022 Sodium [Moles/Vol] 140 mmol/L Normal 136-146 [facility] Comment on above: Performed By: #### P T #### [address] Serum or plasma total carbon dioxide measurement (moles/volume)Ordered By: Hiral Interiano on 08-15-2022 CO2 [Moles/Vol] 21.5 mmol/L Low 22.0-30.0 [facility] Comment on above: Performed By: #### P T #### [address] Serum or plasma urea nitroge n measurement (mass/volume)Ordered By: Hiral Interiano on 08-15-2022 Urea nitrogen [Mass/Vol] 45 mg/dL High 9-23 [facility] Comment on above: Performed By: #### P T #### [address] Aerobic Cultureon 08-14-2022 Aerobic Culture ORGANISM: Rosanna al bicans (O:CANALB) Quantity of Growth Light Growth Gram Stain Result 3+ Epithelial Cells 2+ White Blood Cells 3+ Gram Positive Cocci 2+ Gram Negative Bacilli PERFORMED BY: [place] [address] PATHOLOGIST [employer] SCOUT DIANDRA LACY M.D. [facility] Comment on above: Performed By: #### B MP #### [address] Basic Metabolic Panelon 07-28 Anion gap [Moles/Vol] 13.0 mmol/L Normal 6.0-15.0 [facility] Comment on above: Performed By: #### C BC, BMP ####[facility] [address] [place] [address] Calcium [Mass/Vol] 7.3 mg/dL Low 8.2-10.2 [facility] Comment on above: Performed By: #### C BC, BMP ####[facility] [place] [address] [facility] Chloride [Moles/Vol] 109 mmol/L Normal 95-114 [facility] Comment on above: Performed By: #### C BC, BMP ####[facility] [place] [address] [facility] CO2 [Moles/Vol] 21.9 mmol/L Low 22.0-30.0 [facility] Comment on above: Performed By: #### C BC, BMP ####[facility] [address] [place] [address] [facility] Creatinine [Mass/Vol] 6.60 mg/dL Significan t change up 0.64-1.27 [facility] Comment on above: Performed By: #### C BC, BMP ####[place] [address] [place] [address] [facility] Creatinine Clr Calc Pharmacy 11.49 [facility] Comment on above: Result Comment: PERF ORMED BY: [facility] [address] [place] [id number] PATHOLOGIST [employer] SCOUT DIANDRA LACY M.D. Performed By: #### C BC, BMP ####[address] [place] [address] [facility] Estimated GFR ( Yana 10 [facility] Comment on above: Result Comment: GFR estimated reference range: According to KDOQI guidelines, <60 ml/min/1.73m2 is sufficient to diagnose a patient with chronic kidney disease. Performed By: #### C BC, BMP ####[facility] [place] [address] [facility] Estimated GFR (Non- Am 8 [facility] Comment on above: Performed By: #### C BC, BMP ####[address] [place] [address] [facility] Glucose [Mass/Vol] 140 mg/dL High 70-100 [facility] Comment on above: Result Comment: [place] Glucose Reference Range is dependent on time and content of last meal. Glucose of more than 200 mg/dL in a nonstressed, ambulatory subject supports the diagnosis of Diabetes Mellitus. ADA recommended reference range Performed By: #### C BC, BMP ####[facility] [place] [address] [facility] Potassium [Moles/Vol] 3.9 mmol/L Normal 3.5-5.1 [facility] Comment on above: Performed By: #### C BC, BMP ####[address] [place] [address] [facility] Sodium [Moles/Vol] 140 mmol/L Normal 136-146 [facility] Comment on above: Performed By: #### C BC, BMP ####[place] [place] [id number] [facility] Urea nitrogen [Mass/Vol] 61 mg/dL High 9- [facility] Comment on above: Performed By: #### C BC, BMP ####[place] [id number] [place] Basophils Auto (Bld) [#/Vol] Ordered By: [...] on above: Result Comment: PERF ORMED BY: [facility] [address] [place] [id number] PATHOLOGIST [employer] SCOUT DIANDRA LACY M.D. Performed By: #### C BC, BMP ####[place] [address] [place] [id number] [facility] Basophils/100 WBC (Bld) 0.2 % Normal . [facility] Comment on above: Performed By: #### C BC, BMP ####[facility] Eosinophils (Bld) [#/Vol] 0.1 10*3/uL Normal 0.0-0.45 [facility] Comment on above: Performed By: #### C RUDOLPH, BMP ####[address] Eosinophils/100 WBC (Bld) 1.0 % Normal . [facility] Comment on above: Performed By: #### C BC, BMP ####[address] Erythrocyte distribution width (RBC) [Ratio] 13.5 % Normal 12.0-14.8 [facility] Comment on above: Performed By: #### C RUDOLPH, BMP ####[address] Hematocrit (Bld) [Volume fraction] 35.4 % Low 38.8-50.0 [facility] Comment on above: Performed By: #### C RUDOLPH, BMP ####[address] Hemoglobin (Bld) [Mass/Vol] 12.0 g/dL Low 13.0-17.0 [facility] Comment on above: Performed By: #### C RUDOLPH, BMP ####[address] Lymphocytes (Bld) [#/Vol] 0.6 10*3/uL Low 1.00-4.8 [facility] Comment on above: Performed By: #### C BC, BMP ####[address] Lymphocytes/100 WBC (Bld) 7.8 % Normal . [facility] Comment on above: Performed By: #### C BC, BMP ####[address] MCH (RBC) [Entitic mass] 33.0 pg Normal 27.5-35.2 [facility] Comment on above: Performed By: #### C BC, BMP ####[address] MCV (RBC) [Entitic vol] 97.3 fL Normal 83.5-101 [facility] Comment on above: Performed By: #### C RUDOLPH, BMP ####[address] Mean Corpuscular HGB Conc 33.9 g/dL Normal 32.5-35.6 [facility] Comment on above: Performed By: #### C RUDOLPH, BMP ####[address] Monocytes (Bld) [#/Vol] 0.8 10*3/uL Normal 0.0-0.8 [facility] Comment on above: Performed By: #### C RUDOLPH, BMP ####[address] Monocytes/100 WBC (Bld) 11.4 % Normal . [facility] Comment on above: Performed By: #### C RUDOLPH, BMP ####[address] Neutrophils (Bld) [#/Vol] 5.9 10*3/uL Normal 1.8-7.7 [facility] Comment on above: Performed By: #### C RUDOLPH, BMP ####[address] Neutrophils/100 WBC (Bld) 79.6 % Normal . [facility] Comment on above: Performed By: #### C RUDOLPH, BMP ####[address] NRBC% 0.1 /100{WBC} Normal 0-0.5 [facility] Comment on above: Performed By: #### C RUDOLPH, BMP ####[place] [id number] [facility] Platelet mean volume (Bld) [Entitic vol] 8.4 fL Normal 6.6-10.1 [facility] Comment on above: Performed By: #### C RUDOLPH, BMP ####[address] [place] [address] [place] Platelets (Bld) [#/Vol] 121 10*3/uL Low 150-450 [facility] Comment on above: Performed By: #### C BC, BMP ####[facility] RBC (Bld) [#/Vol] 3.64 10*6/uL Low 3.90-5.60 [facility] Comment on above: Performed By: #### C BC, BMP ####[facility] WBC (Bld) [#/Vol] 7.4 10*3/uL Normal 4.1-10.5 [facility] Comment on above: Performed By: #### C RUDOLPH, BMP ####[place] [address] Eosinophils Auto (Bld) [#/Vo l]Ordered By: [...] 0 08-14-2022 Commemt1 Glu2: Cleaned Meter Normal [facility] Comment on above: Result Comment: PERF ORMED BY: [facility] [address] [place] [address] PATHOLOGIST [employer] SCOUT DIANDRA LACY M.D. Performed By: #### P T #### [facility] [address] Glucose [Mass/Vol] 140 mg/dL Normal [facility] Comment on above: Result Comment: [place] om Glucose Reference Range is dependent on time and content of last meal. Glucose of more than 200 mg/dL in a nonstressed, ambulatory subject supports the diagnosis of Diabetes Mellitus. Performed By: #### P T #### [facility] [address] [place] [address] Glucose [Mass/Vol] 125 mg/dL Normal [facility] Comment on above: Result Comment: [place] om Glucose Reference Range is dependent on time and content of last meal. Glucose of more than 200 mg/dL in a nonstressed, ambulatory subject supports the diagnosis of Diabetes Mellitus. PERFORMED BY: [place] [address] PATHOLOGIST [employer] SCOUT DIANDRA LACY M.D. Performed By: #### P T #### [facility] [address] [place] [address] Glucose [Mass/Vol] 140 mg/dL Normal [facility] Comment on above: Result Comment: [place] om Glucose Reference Range is dependent on time and content of last meal. Glucose of more than 200 mg/dL in a nonstressed, ambulatory subject supports the diagnosis of Diabetes Mellitus. PERFORMED BY: [place] [address] PATHOLOGIST [employer] SCOUT DIANDRA LACY M.D. Performed By: #### G LULS ####Point of Care testing, Commemt1 Glu2: Cleaned Meter Normal [facility] Comment on above: Result Comment: PERF ORMED BY: [place] [address] PATHOLOGIST [employer] SCOUT DIANDRA LACY M.D. Performed By: #### G LULS ####Point of Care testing, Glucose [Mass/Vol] 175 mg/dL Normal [facility] Comment on above: Result Comment: [place] om Glucose Reference Range is dependent on [...] Cocci 2+ Gram Negative Bacilli PERFORMED BY: [place] [address] PATHOLOGIST [employer] SCOUT DIANDRA LACY M.D. Normal [facility] Comment on above: Performed By: #### B MP #### [address] Hematocrit Auto (Bld) [Volum e fraction]Ordered [...] 08-14-2022 MCHC (RBC) [Mass/Vol] 33.9 g/dL 32.5-35.6 [facility] MCV Auto (RBC) [Entitic vol] Ordered [...] 08-14-2022 RBC (Bld) [#/Vol] 3.64 10*6/uL 3.90-5.60 [facility] WBC Auto (Bld) [#/Vol]Ordere d By: Hiral Interiano on 08-14-2022 WBC (Bld) [#/Vol] 7.4 10*3/uL 4.1-10.5 [facility] Albumin Levelon 08-13-2022 Albumin [Mass/Vol] 3.0 g/dL Low 3.2-5.5 [facility] Comment on above: Result Comment: PERF ORMED BY: [place] [address] PATHOLOGIST [employer] SCOUT DIANDRA LACY M.D. Performed By: #### B MP #### [address] Basic Metabolic Panelon 07-28 Anion gap [Moles/Vol] 18.4 mmol/L High 6.0-15.0 [facility] Comment on above: Order Comment: REDRA W Performed By: #### B MP #### [address] Calcium [Mass/Vol] 7.0 mg/dL Low 8.2-10.2 [facility] Comment on above: Order Comment: REDRA W Performed By: #### B MP #### [address] Chloride [Moles/Vol] 97 mmol/L Normal 95-114 [facility] Comment on above: Order Comment: REDRA W Performed By: #### B MP #### [facility] [address] [place] [address] CO2 [Moles/Vol] 24.5 mmol/L Normal 22.0-30.0 [facility] Comment on above: Order Comment: REDRA W Performed By: #### B MP #### [facility] [address] [place] [address] [place] Creatinine [Mass/Vol] 10.74 mg/dL Significan t change up 0.64-1.27 [facility] Comment on above: Order Comment: REDRA W Performed By: #### B MP #### [facility] [address] [place] [address] [place] Creatinine Clr Calc Pharmacy 7.06 [facility] Comment on above: Order Comment: REDRA W Result Comment: PERF ORMED BY: [place] [address] PATHOLOGIST [employer] SCOUT DIANDRA LACY M.D. Performed By: #### B MP #### [place] [address] [place] Estimated GFR ( Yana 6 [facility] Comment on above: Order Comment: REDRA W Result Comment: GFR estimated reference range: According to KDOQI guidelines, <60 ml/min/1.73m2 is sufficient to diagnose a patient with chronic kidney disease. Performed By: #### B MP #### [place] [address] [place] Estimated GFR (Non- Am 5 [facility] Comment on above: Order Comment: REDRA W Performed By: #### B MP #### [address] Glucose [Mass/Vol] 85 mg/dL Normal 70-100 [facility] Comment on above: Order Comment: REDRA W Result Comment: [place] om Glucose Reference Range is dependent on time and content of last meal. Glucose of more than 200 mg/dL in a nonstressed, ambulatory subject supports the diagnosis of Diabetes Mellitus. ADA recommended reference range Performed By: #### B MP #### [place] [address] [place] Potassium [Moles/Vol] 4.9 mmol/L Normal 3.5-5.1 [facility] Comment on above: Order Comment: REDRA W Performed By: #### B MP #### [facility] [address] [place], [place] [id number] [place] Sodium [Moles/Vol] 135 mmol/L Low 136-146 [facility] Comment on above: Order Comment: REDRA W Performed By: #### B MP #### [place] [address] [place] Urea nitrogen [Mass/Vol] 72 mg/dL Significant change up 03-19 [facility] Comment on above: Order Comment: REDRA W Performed By: #### B MP #### [address] Body fluid albumin measureme nt (mass/volume)Ordered By: Alicia Perea on 08-13-2022 Albumin (Body fld) [Mass/Vol] 3.0 g/dL 3.2-5.5 [facility] Complete Blood Count Auto Di ffon 08-13-2022 Basophils (Bld) [#/Vol] 0.0 10*3/uL Normal 0.0-0.2 [facility] Comment on above: Result Comment: PERF ORMED BY: [place] [address] PATHOLOGIST [employer] SCOUT DIANDRA LACY M.D. Performed By: #### C BC #### [address] Basophils/100 WBC (Bld) 0.5 % Normal . [facility] Comment on above: Performed By: #### C BC #### [address] Eosinophils (Bld) [#/Vol] 0.1 10*3/uL Normal 0.0-0.45 [facility] Comment on above: Performed By: #### C BC #### [address] Eosinophils/100 WBC (Bld) 0.9 % Normal . [facility] Comment on above: Performed By: #### C BC #### [address] Erythrocyte distribution width (RBC) [Ratio] 13.7 % Normal 12.0-14.8 [facility] Comment on above: Performed By: #### C BC #### [address] Hematocrit (Bld) [Volume fraction] 34.2 % Low 38.8-50.0 [facility] Comment on above: Performed By: #### C BC #### [address] Hemoglobin (Bld) [Mass/Vol] 11.6 g/dL Low 13.0-17.0 [facility] Comment on above: Performed By: #### C BC #### [address] Lymphocytes (Bld) [#/Vol] 0.9 10*3/uL Low 1.00-4.8 [facility] Comment on above: Performed By: #### C BC #### [address] Lymphocytes/100 WBC (Bld) 9.6 % Normal . [facility] Comment on above: Performed By: #### C BC #### [address] MCH (RBC) [Entitic mass] 32.9 pg Normal 27.5-35.2 [facility] Comment on above: Performed By: #### C BC #### [address] MCV (RBC) [Entitic vol] 96.5 fL Normal 83.5-101 [facility] Comment on above: Performed By: #### C BC #### [address] Mean Corpuscular HGB Conc 34.1 g/dL Normal 32.5-35.6 [facility] Comment on above: Performed By: #### C BC #### [address] Monocytes (Bld) [#/Vol] 1.0 10*3/uL High 0.0-0.8 [facility] Comment on above: Performed By: #### C BC #### [address] Monocytes/100 WBC (Bld) 9.8 % Normal . [facility] Comment on above: Performed By: #### C BC #### [address] Neutrophils (Bld) [#/Vol] 7.8 10*3/uL High 1.8-7.7 [facility] Comment on above: Performed By: #### C BC #### [facility] [address] [place] [address] [place] Neutrophils/100 WBC (Bld) 79.2 % Normal . [facility] Comment on above: Performed By: #### C BC #### [facility] [address] NRBC% 0.1 /100{WBC} Normal 0-0.5 [facility] Comment on above: Performed By: #### C BC #### [facility] [address] Platelet mean volume (Bld) [Entitic vol] 8.7 fL Normal 6.6-10.1 [facility] Comment on above: Performed By: #### C BC #### [facility] [address] [place] [address] [place] Platelets (Bld) [#/Vol] 129 10*3/uL Low 150-450 [facility] Comment on above: Performed By: #### C BC #### [facility] [address] [place] [address] [place] RBC (Bld) [#/Vol] 3.54 10*6/uL Low 3.90-5.60 [facility] Comment on above: Performed By: #### C BC #### [facility] [address] [place] [address] [place] WBC (Bld) [#/Vol] 9.9 10*3/uL Normal 4.1-10.5 [facility] Comment on above: Performed By: #### C BC #### [facility] [address] [place] [address] [place] urethrocystogram retroon 08-13-2022 [place] urethrocystogram retro [facility] Main [place] [address] [place] [address] Fluoroscopy Report Signed Patient: Victorino Smyth MR#: [id number] : 1940 Acct:[id number] Age/Sex: 82 / M ADM Date: 08/11/22 Loc: 4N Room: 8J0377-8 Type: ADM IN Attending Dr: Hiral Interiano [...] Perez Jr., D.OManohar08/13/2022 2:25 PM Dictation Location: [place] [address] Transcribed By: [facility] 08/13/22 142 Dictated By: Ifeanyi Perez Jr, DO 08/13/22 142 Signed By: 08/13/22 142 [facility] Glucose Poct Glucometerson 0 08-13-2022 Commemt1 Glu2: Cleaned Meter [facility] Comment on above: Result Comment: PERF ORMED BY: [place] [address] PATHOLOGIST [employer] SCOUT DIANDRA LACY M.D. Performed By: #### B MP #### [facility] [address] [place] [address] Glucose [Mass/Vol] 91 mg/dL [facility] Comment on above: Result Comment: [place] Glucose Reference Range is dependent on time and content of last meal. Glucose of more than 200 mg/dL in a nonstressed, ambulatory subject supports the diagnosis of Diabetes Mellitus. Performed By: #### B MP #### [facility] [address] [place] [address] Commemt1 Glu2: Cleaned Meter [facility] Comment on above: Result Comment: PERF ORMED BY: [place] [address] PATHOLOGIST [employer] SCOUT DIANDRA LACY M.D. Performed By: #### G LULS ####Point of Care testing, Glucose [Mass/Vol] 94 mg/dL Normal [facility] Comment on above: Result Comment: [place] Glucose Reference Range is dependent on time and content of last meal. Glucose of more than 200 mg/dL in a nonstressed, ambulatory subject supports the diagnosis of Diabetes Mellitus. Performed By: #### G JOHANNE ####Point of Care testing, Operative Reporton Operative Report [id number] [facility] A1C with Estimated Average G marianna 08-12-2022 Glucose [Mass/Vol] 212 mg/dL Normal [facility] Comment on above: Result Comment: PERF ORMED BY: [facility] [address] [place] [address] PATHOLOGIST [employer] SCOUT DIANDRA LACY M.D. Performed By: #### B MP #### [facility] [address] HbA1c (Bld) [Mass fraction] 9.0 % High 4.3-5.6 [facility] Comment on above: Result Comment: Incr eased risk for diabetes: 5.7 - 6.4 diabetes: >6.4 glycemic control for adults with diabetes: <7.0 Performed By: #### B MP #### [facility] [address] Basic Metabolic Panelon 07-28 Anion gap [Moles/Vol] 20.6 mmol/L High 6.0-15.0 [facility] Comment on above: Performed By: #### B MP, CBC ####[facility] Calcium [Mass/Vol] 7.1 mg/dL Low 8.2-10.2 [facility] Comment on above: Performed By: #### B MP, CBC ####[facility] [place] [id number] [place] Chloride [Moles/Vol] 104 mmol/L Normal 95-114 [facility] Comment on above: Performed By: #### B MP, CBC ####[facility] [place] [address] [place] CO2 [Moles/Vol] 20.2 mmol/L Low 22.0-30.0 [facility] Comment on above: Performed By: #### B MP, CBC ####[place] [address] [place] [address] [facility] Creatinine [Mass/Vol] 15.50 mg/dL Significan t change up 0.64-1.27 [facility] Comment on above: Performed By: #### B MP, CBC ####[place] [address] [place] [address] [place] Creatinine Clr Calc Pharmacy 4.90 [facility] Comment on above: Result Comment: PERF ORMED BY: [facility] [address] [facility] [place] [address] PATHOLOGIST [employer] SCOUT DIANDRA LACY M.D. Performed By: #### B MP, CBC ####[address] [address] [facility] Estimated GFR ( Yana 4 [facility] Comment on above: Result Comment: GFR estimated reference range: According to KDOQI guidelines, <60 ml/min/1.73m2 is sufficient to diagnose a patient with chronic kidney disease. Performed By: #### B MP, CBC ####[address] [address] [facility] Estimated GFR (Non- Am 3 [facility] Comment on above: Performed By: #### B MP, CBC ####[facility]1111 [place] [id number] [facility] Glucose [Mass/Vol] 100 mg/dL Significant change down 70-100 [facility] Comment on above: Result Comment: [place] Glucose Reference Range is dependent on time and content of last meal. Glucose of more than 200 mg/dL in a nonstressed, ambulatory subject supports the diagnosis of Diabetes Mellitus. ADA recommended reference range Performed By: #### B MP, CBC ####[address] [address] [place] Potassium [Moles/Vol] 4.8 mmol/L Significan t change down 3.5-5.1 [facility] Comment on above: Performed By: #### B MP, CBC ####[address] Sodium [Moles/Vol] 140 mmol/L Significant change down 136-146 [facility] Comment on above: Performed By: #### B MP, CBC ####[address] Urea nitrogen [Mass/Vol] 133 mg/dL Significant change up - [facility] Comment on above: Performed By: #### B MP, CBC ####[address] Complete Blood Count Auto Di ffon 08-12-2022 Basophils (Bld) [#/Vol] 0.0 10*3/uL Normal 0.0-0.2 [facility] Comment on above: Result Comment: PERF ORMED BY: [facility] [address] [place] [address] PATHOLOGIST [employer] SCOUT DIANDRA LACY M.D. Performed By: #### B MP, CBC ####[address] Basophils/100 WBC (Bld) 0.2 % Normal . [facility] Comment on above: Performed By: #### B MP, CBC ####[address] Eosinophils (Bld) [#/Vol] 0.0 10*3/uL Normal 0.0-0.45 [facility] Comment on above: Performed By: #### B MP, CBC ####[address] Eosinophils/100 WBC (Bld) 0.0 % Normal . [facility] Comment on above: Performed By: #### B MP, CBC ####[address] Erythrocyte distribution width (RBC) [Ratio] 13.6 % Normal 12.0-14.8 [facility] Comment on above: Performed By: #### B MP, CBC ####[address] Hematocrit (Bld) [Volume fraction] 33.6 % Low 38.8-50.0 [facility] Comment on above: Performed By: #### B MP, CBC ####[address] Hemoglobin (Bld) [Mass/Vol] 11.5 g/dL Low 13.0-17.0 [facility] Comment on above: Performed By: #### B MP, CBC ####[address] Lymphocytes (Bld) [#/Vol] 0.6 10*3/uL Low 1.00-4.8 [facility] Comment on above: Performed By: #### B MP, CBC ####[address] Lymphocytes/100 WBC (Bld) 4.4 % Normal . [facility] Comment on above: Performed By: #### B MP, CBC ####[address] MCH (RBC) [Entitic mass] 32.9 pg Normal 27.5-35.2 [facility] Comment on above: Performed By: #### B MP, CBC ####[address] MCV (RBC) [Entitic vol] 95.9 fL Normal 83.5-101 [facility] Comment on above: Performed By: #### B MP, CBC ####[address] Mean Corpuscular HGB Conc 34.3 g/dL Normal 32.5-35.6 [facility] Comment on above: Performed By: #### B MP, CBC ####[address] Monocytes (Bld) [#/Vol] 1.0 10*3/uL High 0.0-0.8 [facility] Comment on above: Performed By: #### B MP, CBC ####[address] Monocytes/100 WBC (Bld) 7.4 % Normal . [facility] Comment on above: Performed By: #### B MP, CBC ####[address] Neutrophils (Bld) [#/Vol] 11.8 10*3/uL High 1.8-7.7 [facility] Comment on above: Performed By: #### B MP, CBC ####[address] Neutrophils/100 WBC (Bld) 88.0 % Normal . [facility] Comment on above: Performed By: #### B MP, CBC ####[address] NRBC% 0.0 /100{WBC} Normal 0-0.5 [facility] Comment on above: Performed By: #### B MP, CBC ####[address] Platelet mean volume (Bld) [Entitic vol] 8.3 fL Normal 6.6-10.1 [facility] Comment on above: Performed By: #### B MP, CBC ####[address] Platelets (Bld) [#/Vol] 162 10*3/uL Normal 150-450 [facility] Comment on above: Performed By: #### B MP, CBC ####[address] RBC (Bld) [#/Vol] 3.51 10*6/uL Low 3.90-5.60 [facility] Comment on above: Performed By: #### B MP, CBC ####[address] WBC (Bld) [#/Vol] 13.4 10*3/uL High 4.1-10.5 [facility] Comment on above: Performed By: #### B MP, CBC ####[facility] [address] [place] [id number] [facility] Consultation Noteon 08-12-19 Consultation Note [id number] [facility] Glucose Poct Glucometerson 0 08-12-2022 Glucose [Mass/Vol] 114 mg/dL Normal [facility] Comment on above: Result Comment: [place] Glucose Reference Range is dependent on time and content of last meal. Glucose of more than 200 mg/dL in a nonstressed, ambulatory subject supports the diagnosis of Diabetes Mellitus. PERFORMED BY: [place] [address] PATHOLOGIST [employer] SCOUT DIANDRA LACY M.D. Performed By: #### G JOHANNE #### Point of Care testing , Glucose [Mass/Vol] 111 mg/dL Normal [facility] Comment on above: Result Comment: [place] Glucose Reference Range is dependent on time and content of last meal. Glucose of more than 200 mg/dL in a nonstressed, ambulatory subject supports the diagnosis of Diabetes Mellitus. PERFORMED BY: [facility] [address] [place] [address] PATHOLOGIST [employer] SCOUT DIANDRA LACY M.D. Performed By: #### G LULS #### Point of Care testing , Glucose [Mass/Vol] 96 mg/dL Normal [facility] Comment on above: Result Comment: [place] Glucose Reference Range is dependent on time and content of last meal. Glucose of more than 200 mg/dL in a nonstressed, ambulatory subject supports the diagnosis of Diabetes Mellitus. PERFORMED BY: [place] [address] PATHOLOGIST [employer] SCOUT DIANDRA LACY M.D. Performed By: #### B MP #### [facility] [address] Glucose [Mass/Vol] 91 mg/dL Normal [facility] Comment on above: Result Comment: [place] om Glucose Reference Range is dependent on time and content of last meal. Glucose of more than 200 mg/dL in a nonstressed, ambulatory subject supports the diagnosis of Diabetes Mellitus. PERFORMED BY: [place] [address] PATHOLOGIST [employer] SCOUT DIANDRA LACY M.D. Performed By: #### B MP #### [facility] [address] [place] [address] Glucose [Mass/Vol] 93 mg/dL Normal [facility] Comment on above: Result Comment: [place] Glucose Reference Range is dependent on time and content of last meal. Glucose of more than 200 mg/dL in a nonstressed, ambulatory subject supports the diagnosis of Diabetes Mellitus. PERFORMED BY: [place] [address] PATHOLOGIST [employer] SCOUT DIANDRA LACY M.D. Performed By: #### P T #### [facility] [address] [place] [address] Commemt1 Glu2: Cleaned Meter Normal [facility] Comment on above: Result Comment: PERF ORMED BY: [place] [address] PATHOLOGIST [employer] SCOUT DIANDRA LACY M.D. Performed By: #### G LULS #### Point of Care testing , Glucose [Mass/Vol] 87 mg/dL Normal [facility] Comment on above: Result Comment: [place] Glucose Reference Range is dependent on time [...] Interiano on 08-11-2022 Anisocytosis Ql (Bld) Slight [facility] Band form neutrophils/100 WB C Manual cnt (Bld)Ordered By: Hiral Interiano on 08-11-2022 Band form neutrophils/100 WBC (Bld) 1 % 0-5 [facility] Basic Metabolic Panelon 07-28 Anion gap [Moles/Vol] 30.1 mmol/L High 6.0-15.0 [facility] Comment on above: Performed By: #### B MP #### [facility] [address] Calcium [Mass/Vol] 7.2 mg/dL Low 8.2-10.2 [facility] Comment on above: Performed By: #### B MP #### [facility] [address] Chloride [Moles/Vol] 99 mmol/L Normal 95-114 [facility] Comment on above: Performed By: #### B MP #### [facility] [address] [place] [id number] [facility] CO2 [Moles/Vol] 9.3 mmol/L Low 22.0-30.0 [facility] Comment on above: Performed By: #### B MP #### [facility] [address] [place] [address] [place] Creatinine Clr Calc Pharmacy 4.24 Normal [facility] Comment on above: Result Comment: PERF ORMED BY: [place] [address] PATHOLOGIST [employer] SCOUT DIANDRA LACY M.D. Performed By: #### B MP #### [facility] [address] [place] [address] [place] Estimated GFR ( Yana 3 [facility] Comment on above: Result Comment: GFR estimated reference range: According to KDOQI guidelines, <60 ml/min/1.73m2 is sufficient to diagnose a patient with chronic kidney disease. Performed By: #### B MP #### [facility] [address] Estimated GFR (Non- Am 3 [facility] Comment on above: Performed By: #### B MP #### [facility] [address] Glucose [Mass/Vol] 507 mg/dL Off scale high 70-100 [facility] Comment on above: Result Comment: Resu lts called at 1409 on 08/11/22 Random Glucose Reference Range is dependent on time and content of last meal. Glucose of more than 200 mg/dL in a nonstressed, ambulatory subject supports the diagnosis of Diabetes Mellitus. ADA recommended reference range Performed By: #### B MP #### [address] Potassium [Moles/Vol] 7.4 mmol/L Off scale high 3.5-5.1 [facility] Comment on above: Result Comment: Resu lts called at 1409 on 08/11/22 Performed By: #### B MP #### [address] Sodium [Moles/Vol] 131 mmol/L Low 136-146 [facility] Comment on above: Performed By: #### B MP #### [facility] [address] [place] [address] [place] Urea nitrogen [Mass/Vol] 163 mg/dL High 03-19 [facility] Comment on above: Performed By: #### B MP #### [place] [address] [place] Beta Hydroxybuterateon 08-11 Beta Hydroxybuterate 2.40 mmol/L High 0.05-0.27 [facility] Comment on above: Result Comment: PERF ORMED BY: [facility] [address] [place] [address] PATHOLOGIST [employer] SCOUT DIANDRA LACY M.D. Performed By: #### B MP #### [facility] [address] Beta-hydroxybutyric acid adina surementOrdered By: Alicia Perea on 08-11-2022 Beta hydroxybutyrate [Mass/Vol] 2.40 mmol/L 0.05-0.27 [facility] Amie cells [Presence] in Blo od by Light microscopyOrdered By: Hiral Interiano on 08-11-2022 Amie cells LM Ql (Bld) Slight Fi [facility] CARDIAC GUIDO 3-6on 3 CK [Catalytic activity/Vol] 162 U/L Normal 39-308 [facility] Comment on above: Performed By: #### T SH, LIPID, T4, FT3, CMP #### [facility] [address] [address] [address] Alicia Patel CK.MB [Mass/Vol] 5.52 ng/mL Critically high <=3.60 [facility] Comment on above: Performed By: #### T SH, LIPID, T4, FT3, CMP #### [facility] [address] [address] [address] Alicia Patel HSTROP 19.7 pg/mL Normal 4.0-76.1 [facility] Comment on above: Result Comment: CUT- OFF POINTS HAVE BEEN ESTABLISHED BASED ON THE FOURTH UNIVERSAL DEFINITIONS OF MYOCARDIAL INFARCTION. THE UPPER REFERENCE LIMIT (URL) OF TROPONIN, DEFINED THE 99TH PERCENTILE OF cTnI DISTRIBUTION IN A REFERENCE POPULATION, HAS BEEN CONFIRMED THE DECISION THRESHOLD FOR [place] DIAGNOSIS. Performed By: #### T SH, LIPID, T4, FT3, CMP #### [facility] [address] [address] [address] Alicia Patel CK [Catalytic activity/Vol] 150 U/L Normal 39-308 [facility] Comment on above: Performed By: #### T SH, LIPID, T4, FT3, CMP #### [facility] [address] [address] [address] Alicia Patel CK.MB [Mass/Vol] 4.99 ng/mL Critically high <=3.60 [facility] Comment on above: Performed By: #### T SH, LIPID, T4, FT3, CMP #### [facility] [address] [address] [address] Alicia Patel HSTROP 16.9 pg/mL Normal 4.0-76.1 [facility] Comment on above: Result Comment: CUT- OFF POINTS HAVE BEEN ESTABLISHED BASED ON THE FOURTH UNIVERSAL DEFINITIONS OF MYOCARDIAL INFARCTION. THE UPPER REFERENCE LIMIT (URL) OF TROPONIN, DEFINED THE 99TH PERCENTILE OF cTnI DISTRIBUTION IN A REFERENCE POPULATION, HAS BEEN CONFIRMED THE DECISION THRESHOLD FOR NH DIAGNOSIS. Performed By: #### T SH, LIPID, T4, FT3, CMP #### [facility] [address] [place] [address] Dr. Alicia Patel CARDIAC GUIDO ADMITon 023 CK [Catalytic activity/Vol] 128 U/L Normal 39-308 [facility] Comment on above: Performed By: #### T SH, LIPID, T4, FT3, CMP #### [facility] [address] [address] [address] Alicia Patel CK.MB [Mass/Vol] 4.95 ng/mL Critically high <=3.60 [facility] Comment on above: Performed By: #### T SH, LIPID, T4, FT3, CMP #### [facility] [address] [place] [address] Dr. Alicia Patel HSTROP 18.0 pg/mL Normal 4.0-76.1 [facility] Comment on above: Result Comment: CUT- OFF POINTS HAVE BEEN ESTABLISHED BASED ON THE FOURTH UNIVERSAL DEFINITIONS OF MYOCARDIAL INFARCTION. THE UPPER REFERENCE LIMIT (URL) OF TROPONIN, DEFINED THE 99TH PERCENTILE OF cTnI DISTRIBUTION IN A REFERENCE POPULATION, HAS BEEN CONFIRMED THE DECISION THRESHOLD FOR NH DIAGNOSIS. Performed By: #### T SH, LIPID, T4, FT3, CMP #### [facility] [address] [place] [address] Dr. Alicia Patel LIZZY 188 ng/mL Critically high 16-96 [facility] Comment on above: Performed By: #### T SH, LIPID, T4, FT3, CMP #### [facility] [address] [place] [address] Dr. Alicia Patel CBC AUTO DIFFon 08-11-2022 BASO # 0.0 103/ul Normal 0.0-0.1 [facility] Comment on above: Performed By: #### T SH, LIPID, T4, FT3, CMP #### [facility] [address] [place] [address] Dr. Alicia Patel Basophils/100 WBC (Bld) 0.3 % Normal 0.2-2.0 [facility] Comment on above: Performed By: #### T SH, LIPID, T4, FT3, CMP #### [facility] [address] [place] [address] Dr. Alicia Patel EO # 0.2 103/ul Normal 0.0-0.7 [facility] Comment on above: Performed By: #### T SH, LIPID, T4, FT3, CMP #### [facility] [address] [place] [address] Dr. Alicia Patel Eosinophils/100 WBC (Bld) 1.8 % Normal 0.9-7.0 [facility] Comment on above: Performed By: #### T SH, LIPID, T4, FT3, CMP #### [facility] [address] [place] [address] Dr. Alicia Patel Erythrocyte distribution width (RBC) [Ratio] 13.2 % Normal 11.0-15.0 [facility] Comment on above: Performed By: #### T SH, LIPID, T4, FT3, CMP #### [facility] [address] [place] [address] Dr. Alicia Patel Hematocrit (Bld) [Volume fraction] 36.0 % Critically low 42.0-54.0 [facility] Comment on above: Performed By: #### T SH, LIPID, T4, FT3, CMP #### [facility] [address] [place] [address] Dr. Alicia Patel Hemoglobin (Bld) [Mass/Vol] 12.0 g/dL Critically low 14.0-18.0 [facility] Comment on above: Performed By: #### T SH, LIPID, T4, FT3, CMP #### [facility] [address] [place] [address] Dr. Alicia Patel IG # 0.34 10e3/ul Critically high 0.00-0.03 [facility] Comment on above: Performed By: #### T SH, LIPID, T4, FT3, CMP #### [facility] [address] [place] [address] Dr. Alicia Patel IG % 3.8 % Critically high 0.0-0.5 [facility] Comment on above: Performed By: #### T SH, LIPID, T4, FT3, CMP #### [facility] [address] [place] [address] Dr. Alicia Patel LYMPH # 0.5 103/ul Critically low 1.2-3.8 [facility] Comment on above: Performed By: #### T SH, LIPID, T4, FT3, CMP #### [facility] [address] [place] [address] Dr. Alicia Patel Lymphocytes/100 WBC (Bld) 5.9 % Critically low 20.5-60.0 [facility] Comment on above: Performed By: #### T SH, LIPID, T4, FT3, CMP #### [facility] [address] [place] [address] Dr. Alicia Patel MANUAL DIFF REQ NO Normal [facility] Comment on above: Performed By: #### T SH, LIPID, T4, FT3, CMP #### [facility] [address] [place] [address] Dr. Alicia Patel MCH (RBC) [Entitic mass] 32.3 pg Normal 25.9-34.0 [facility] Comment on above: Performed By: #### T SH, LIPID, T4, FT3, CMP #### [facility] [address] [place] [address] Dr. Alicia Patel MCHC (RBC) [Mass/Vol] 33.3 g/dL Normal 29.9-35.2 [facility] Comment on above: Performed By: #### T SH, LIPID, T4, FT3, CMP #### [facility] [address] [place] [address] Dr. Alicia Patel MCV (RBC) [Entitic vol] 97.0 fL Critically high 80.0-94.0 [facility] Comment on above: Performed By: #### T SH, LIPID, T4, FT3, CMP #### [facility] [address] [place] [address] Dr. Alicia Patel MONO # 0.5 103/ul Normal 0.3-0.8 [facility] Comment on above: Performed By: #### T SH, LIPID, T4, FT3, CMP #### [facility] [address] [place] [address] Dr. Alicia Patel Monocytes/100 WBC (Bld) 5.5 % Normal 1.7-12.0 [facility] Comment on above: Performed By: #### T SH, LIPID, T4, FT3, CMP #### [facility] [address] [place] [address] Dr. Alicia Patel NEUT # 7.5 103/ul Critically high 1.4-6.5 [facility] Comment on above: Performed By: #### T SH, LIPID, T4, FT3, CMP #### [facility] [address] [place] [address] Dr. Alicia Patel Neutrophils/100 WBC (Bld) 82.7 % Critically high 43.0-75.0 [facility] Comment on above: Performed By: #### T SH, LIPID, T4, FT3, CMP #### [facility] [address] [place] [address] Dr. Alicia Patel Platelet mean volume (Bld) [Entitic vol] 10.2 fL Normal 9.5-13.5 [facility] Comment on above: Performed By: #### T SH, LIPID, T4, FT3, CMP #### [facility] [address] [place] [address] Dr. Alicia Patel PLT 191 103/ul Normal 150-450 [facility] Comment on above: Performed By: #### T SH, LIPID, T4, FT3, CMP #### [facility] [address] [place], [place] [address] Dr. Alicia Patel RBC 3.71 106/ul Critically low 4.70-6.10 [facility] Comment on above: Performed By: #### T SH, LIPID, T4, FT3, CMP #### [facility] [address] [place], [place] [address] Dr. Alicia Patel WBC 9.0 103/ul Normal 4.0-11.0 [facility] Comment on above: Performed By: #### T SH, LIPID, T4, FT3, CMP #### [facility] [address] [place], [place] [address] ABD/PELVIS WO CONon [...] ILA GALLEGO Date: 2022-08-11 08:38 Normal [facility] Covid-19 PCR (CVDTBH)on 07-28 SARS-CoV-2 (COVID-19) RNA SAVANNAH+probe Ql (Unsp spec) Not detected Normal NOT DETECTED [facility] Comment on above: Result Comment: When [...] for this test is supported by the Field Mechanic of Health and Human Service's declaration that [...] T SH, LIPID, T4, FT3, CMP #### [facility] [address] [address] [address] Alicia Patel Diff and CBCon 08-11-2022 Anisocytosis Ql (Bld) Slight Normal [facility] Comment on above: Performed By: #### P T #### [address] Band form neutrophils/100 WBC (Bld) 1 % Normal 0-5 [facility] Comment on above: Performed By: #### P T #### [address] Crenated RBC Slight Normal [facility] Comment on above: Performed By: #### P T #### [address] Erythrocyte distribution width (RBC) [Ratio] 13.8 % Normal 12.0-14.8 [facility] Comment on above: Performed By: #### P T #### [address] Hematocrit (Bld) [Volume fraction] 38.1 % Low 38.8-50.0 [facility] Comment on above: Performed By: #### P T #### [address] Hemoglobin (Bld) [Mass/Vol] 12.5 g/dL Low 13.0-17.0 [facility] Comment on above: Performed By: #### P T #### [address] Lymphocytes/100 WBC (Bld) 5 % Low 18-42 [facility] Comment on above: Performed By: #### P T #### [address] MCH (RBC) [Entitic mass] 32.5 pg Normal 27.5-35.2 [facility] Comment on above: Performed By: #### P T #### [address] MCV (RBC) [Entitic vol] 99.0 fL Normal 83.5-101 [facility] Comment on above: Performed By: #### P T #### [address] Mean Corpuscular HGB Conc 32.8 g/dL Normal 32.5-35.6 [facility] Comment on above: Performed By: #### P T #### [address] Microcytosis Slight Normal [facility] Comment on above: Performed By: #### P T #### [address] Monocytes/100 WBC (Bld) 1 % Low 2-11 [facility] Comment on above: Performed By: #### P T #### [address] Platelet Estimate Normal Normal Normal [facility] Comment on above: Performed By: #### P T #### [address] Platelet mean volume (Bld) [Entitic vol] 8.8 fL Normal 6.6-10.1 [facility] Comment on above: Performed By: #### P T #### [address] Platelet Morphology Normal Normal Normal [facility] Comment on above: Result Comment: PERF ORMED BY: [place] [address] PATHOLOGIST [employer] SCOUT DIANDRA LACY M.D. Performed By: #### P T #### [address] Platelets (Bld) [#/Vol] 203 10*3/uL Normal 150-450 [facility] Comment on above: Performed By: #### P T #### [address] Poikilocytosis Slight Normal [facility] Comment on above: Performed By: #### P T #### [address] RBC (Bld) [#/Vol] 3.85 10*6/uL Low 3.90-5.60 [facility] Comment on above: Performed By: #### P T #### [address] Segmented neutrophils/100 WBC (Bld) 94 % High 50-70 [facility] Comment on above: Performed By: #### P T #### [address] WBC (Bld) [#/Vol] 9.1 10*3/uL Normal 4.1-10.5 [facility] Comment on above: Performed By: #### P T #### [address] ECG 12 lead ECGon 08-11-2022 ECG 12 lead ECG [facility] Main [place] [address] [place] [address] Electrocardiograph Report Signed Patient: Victorino Smyth MR#: [id number] : 1940 Acct:[id number] Age/Sex: 82 / M ADM Date: 08/11/22 Loc: 4N Room: 8R1542-2 Type: ADM IN Attending Dr: Hiral Interiano MD Ordering Provider: Hirla Interiano MD Date of Service: 08/11/22 ECG/ECG [...] [facility] 12 lead ECG [facility] [place] [address] Electrocardiograph Report Signed Patient: Victorino Smyth MR#: [id number] : 1940 Acct:[id number] Age/Sex: 82 / M ADM Date: 08/11/22 Loc: Room: 9R2115-1 Type: ADM IN Attending Dr: Hiral Interiano [...] When compared with ECG of 28-JUN-2019 20:47, [place] interval has increased Confirmed by YOGESH CISNEROS DO ([id number]) on 08/11/2022 6:42:37 PM Referred By: Electronically Signed By:YOGESH CISNEROS DO Transcribed By: MUS Signed By Yogesh Cisneros DO 08/11 1842 Normal [facility] ER URINE PROFILEon 3 Bilirubin Ql (U) Negative Normal NEGATIVE [facility] Comment on above: Performed By: #### T SH, LIPID, T4, FT3, CMP #### [facility] [address] [address] [address] Alicia Patel Clarity (U) CLEAR Normal CLEAR [facility] Comment on above: Performed By: #### T SH, LIPID, T4, FT3, CMP #### [facility] [address] [address] [address] Alicia Patel Color (U) LT. YELLOW Normal YELLOW [facility] Comment on above: Performed By: #### T SH, LIPID, T4, FT3, CMP #### [facility] [address] [place] [address] Dr. Alicia Patel ERUROLAND A micrscopic examina tion will be performed if indicated. Normal [facility] Comment on above: Performed By: #### T SH, LIPID, T4, FT3, CMP #### [facility] [address] [address] [address] Alicia Patel Glucose Ql (U) Negative Normal NEGATIVE [facility] Comment on above: Performed By: #### T SH, LIPID, T4, FT3, CMP #### [facility] [address] [address] Dr. Alicia Patel Hemoglobin Ql (U) SMALL Abnormal NEGATIVE [facility] Comment on above: Performed By: #### T SH, LIPID, T4, FT3, CMP #### [facility] [address] [address] [address] Alicia Patel Ketones Ql (U) Negative Normal NEGATIVE [facility] Comment on above: Performed By: #### T SH, LIPID, T4, FT3, CMP #### [facility] [address] [address] [address] Alicia Patel LEUKOCYTES Negative Normal NEGATIVE [facility] Comment on above: Performed By: #### T SH, LIPID, T4, FT3, CMP #### [facility] [address] [address] [address] Alicia Patel Nitrite Ql (U) Negative Normal NEGATIVE [facility] Comment on above: Performed By: #### T SH, LIPID, T4, FT3, CMP #### [facility] [address] [address] [address] Alicia Patel pH (U) 6.0 [pH] Normal 5-9 [facility] Comment on above: Performed By: #### T SH, LIPID, T4, FT3, CMP #### [facility] [address] [place] [address] Dr. Alicia Patel Protein (U) [Mass/Vol] 100 mg/dL Abnormal NEGAT ОЛЕГ/ TRACE [facility] Comment on above: Performed By: #### T SH, LIPID, T4, FT3, CMP #### [facility] [address] [place] [address] Dr. Alicia Patel SPEC GRAVITY 1.015 Normal 1.005-<=1. 025 [facility] Comment on above: Performed By: #### T SH, LIPID, T4, FT3, CMP #### [facility] [address] [place] [address] Dr. Alicia Patel UR MICRO IND INDICATED Normal [facility] Comment on above: Performed By: #### T SH, LIPID, T4, FT3, CMP #### [facility] [address] [place] [address] Dr. Alicia Patel Urobilinogen Qn (U) 0.2 {Wil'U}/dL Normal 0.2 - 1. 0 [facility] Comment on above: Performed By: #### T SH, LIPID, T4, FT3, CMP #### [facility] [address] [place] [address] Dr. Alicia Patel Glucose Poct Glucometerson 0 08-11-2022 Glucose [Mass/Vol] 282 mg/dL Normal [facility] Comment on above: Result Comment: [place] Glucose Reference Range is dependent on time and content of last meal. Glucose of more than 200 mg/dL in a nonstressed, ambulatory subject supports the diagnosis of Diabetes Mellitus. PERFORMED BY: [address] [place] [address] PATHOLOGIST [employer] SCOUT DIANDRA LACY M.D. Performed By: #### P T #### [address] Commemt1 Glu2: Cleaned Meter [facility] Comment on above: Result Comment: PERF ORMED BY: [address] [place] [address] PATHOLOGIST [employer] SCOUT DIANDRA LACY M.D. Performed By: #### G LULS ####Point of Care testing, Glucose [Mass/Vol] 253 mg/dL Normal [facility] Comment on above: Result Comment: [place] om Glucose Reference Range is dependent on time and content of last meal. Glucose of more than 200 mg/dL in a nonstressed, ambulatory subject supports the diagnosis of Diabetes Mellitus. Performed By: #### G LULS ####Point of Care testing, Commemt1 Glu2: Cleaned Meter [facility] Comment on above: Result Comment: PERF ORMED BY: [place] [address] PATHOLOGIST [employer] SCOUT DIANDRA LACY M.D. Performed By: #### P T #### [address] Glucose [Mass/Vol] 304 mg/dL Normal [facility] Comment on above: Result Comment: [place] om Glucose Reference Range is dependent on time and content of last meal. Glucose of more than 200 mg/dL in a nonstressed, ambulatory subject supports the diagnosis of Diabetes Mellitus. Performed By: #### P T #### [facility] [address] [place] [address] Commemt1 [facility] Comment on above: Result Comment: Glu2 : Result Not Confirmed PERFORMED BY: [place] [address] PATHOLOGIST [employer] SCOUT DIANDRA LACY M.D. Performed By: #### B MP #### [address] [address] [place] Glucose [Mass/Vol] 440 mg/dL Off scale high [facility] Comment on above: Result Comment: [place] Glucose Reference Range is dependent on time and content of last meal. Glucose of more than 200 mg/dL in a nonstressed, ambulatory subject supports the diagnosis of Diabetes Mellitus. Performed By: #### B MP #### [facility] [address] [place] [address] Hepatitis Acute Panelon 07-28 HBsAg Screen Negative [...] indicate HCV infection. Performed at: - [facility] [address] [id number] Space Control Supervisor: Lee Bob PhD, Phone: [phone] PERFORMED BY: [place] [address] PATHOLOGIST [employer] SCOUT DIANDRA LACY M.D. Performed By: #### H EPACUTE #### [facility] , Hepatitis B virus surface Ag [Presence] in Serum or Plasma by ImmunoassayOrdered By: Alicia Perea on 08-11-2022 HBV surface Ag IA Ql Negative Negative [facility] Hepatitis C virus IgG Ab [Pr esence] in Serum or Plasma by ImmunoassayOrdered By: Alicia Perea on 08-11-2022 HCV IgG IA Ql Non-Reactive Non Reactive [facility] Hepatitis C virus RNA [Units /volume] (viral load) in Serum or Plasma by SAVANNAH with probOrdered By: Alicia Perea on 08-11-2022 HCV RNA SAVANNAH+probe Qn N/A [facility] Hepatitis C virus RNA [log u nits/volume] (viral load) in Serum or Plasma by SAVANNAH withOrdered By: Alicia Perea on 08-11-2022 HCV RNA SAVANNAH+probe [Log units/Vol] N/A [facility] Laboratory - CoagulationOrde red By: Hiral Interiano on 08-11-2022 PT Coag (PPP) [Time] 12.2 s 9.0-12.9 [facility] Lymphocytes/100 WBC Manual c nt (Bld)Ordered By: Hiral Interiano on 08-11-2022 Lymphocytes/100 WBC (Bld) 5 % 18-42 [facility] Microcytes LM Ql (Bld)Ordere d By: Hiral Interiano on 08-11-2022 Microcytes Ql (Bld) Slight [facility] Monocytes/100 WBC Manual cnt (Bld)Ordered By: Hiral Interiano on 08-11-2022 Monocytes/100 WBC (Bld) 1 % 2-11 [facility] No Panel InformationOrdered By: Alicia Preea on 08-11-2022 Hepatitis A IgM Antibody Negative Negative [facility] Hepatitis B Core IgM Antibody Negative Negative [facility] Hepatitis C Interpretation See comment . [facility] Comment on above: Not infected with HC V unless early or acute infection issuspected (which may be delayed in an immunocompromisedindividual), or other evidence exists to indicate HCVinfection.Performed at: - [facility] [id number] Director: Lee Bob PhD, Phone: [phone] Hepatitis C RNA Quantitative N/A [facility] POINT OF CARE GLUCOSEon 07-28 Glucose [Mass/Vol] 132 mg/dL Critically high 74-106 [facility] Comment on above: Performed By: #### T SH, LIPID, T4, FT3, CMP #### [facility] [address] [address] [address] Alicia Patel Glucose [Mass/Vol] 117 mg/dL Critically high 74-106 [facility] Comment on above: Performed By: #### T SH, LIPID, T4, FT3, CMP #### [facility] [address] [address] [address] Alicia Patel Glucose [Mass/Vol] 95 mg/dL Normal 74-106 [facility] Comment on above: Performed By: #### P OCGLUC #### [facility] [address] [place] [address] Dr. Alicia Patel PROF CHEM 8 (BAS METB)on Creatinine [Mass/Vol] 17.89 mg/dL High 0.64-1.27 [facility] Comment on above: Performed By: #### T SH, LIPID, T4, FT3, CMP #### [facility] [address] [place] [address] Dr. Alicia aPtel Performed By: #### B MP #### [facility] [address] Anion gap [Moles/Vol] 29.5 mmol/L Normal [facility] Comment on above: Performed By: #### T SH, LIPID, T4, FT3, CMP #### [facility] [address] [address] [address] Alicia Patel Calcium [Mass/Vol] 7.7 mg/dL Critically low 8.5-10.1 [facility] Comment on above: Performed By: #### T SH, LIPID, T4, FT3, CMP #### [facility] [address] [place] [address] Dr. Alicia Patel Chloride [Moles/Vol] 102 mmol/L Normal 98-107 [facility] Comment on above: Performed By: #### T SH, LIPID, T4, FT3, CMP #### [facility] [address] [place] [address] Dr. Alicia Patel CO2 [Moles/Vol] 13.5 mmol/L Critically low 21.0-32.0 [facility] Comment on above: Performed By: #### T SH, LIPID, T4, FT3, CMP #### [facility] [address] [place] [address] Dr. Alicia Patel EGFR-AF CYPRIOT 3 mL/min/1.73m2 Critically low >=60 [facility] Comment on above: Performed By: #### T SH, LIPID, T4, FT3, CMP #### [facility] [address] [place] [address] Dr. Alicia Patel EGFR-NON AF CYPRIOT 3 mL/min/1.73m2 Critically low >=60 [facility] Comment on above: Performed By: #### T SH, LIPID, T4, FT3, CMP #### [facility] [address] [place] [address] Dr. Alicia Patel Glucose [Mass/Vol] 105 mg/dL Normal 74-106 [facility] Comment on above: Performed By: #### T SH, LIPID, T4, FT3, CMP #### [facility] [address] [place] [address] Dr. Alicia Patel Potassium [Moles/Vol] 7.0 mmol/L Critically high 3.5-5.1 [facility] Comment on above: Performed By: #### T SH, LIPID, T4, FT3, CMP #### [facility] [address] [place] [address] Dr. Alicia Patel Sodium [Moles/Vol] 138 mmol/L Normal 136-145 [facility] Comment on above: Performed By: #### T SH, LIPID, T4, FT3, CMP #### [facility] [address] [place] [address] Dr. Alicia Patel Urea nitrogen [Mass/Vol] 156.0 mg/dL Critically high 7.0-18.0 [facility] Comment on above: Performed By: #### T SH, LIPID, T4, FT3, CMP #### [facility] [address] [place], [place] [address] Dr. Alicia Patel Urea nitrogen/Creatinine [Mass ratio] 8.7 mg/mg Normal [facility] Comment on above: Performed By: #### T SH, LIPID, T4, FT3, CMP #### [facility] [address] [place], [place] [address] Dr. Alicia Patel Platelet adequacy [Presence] in Blood by Light microscopyOrdered By: Hiral Interiano on 08-11-2022 Platelets LM Ql (Bld) Normal Normal [facility] Platelet morphology finding [Identifier] in BloodOrdered [...] 3 - 4.5 PERFORMED BY: [facility] [address] PATHOLOGIST [employer] SCOUT DIANDRA LACY M.D. Performed By: #### P T #### [address] PT Coag (PPP) [Time] 12.2 s Normal 9.0-12.9 [facility] Comment on above: Performed By: #### P T #### [address] RBC morphologyOrdered By: Donal Interiano on [...] on above: Result Comment: PERF ORMED BY: [place] [address] PATHOLOGIST [employer] SCOUT DIANDRA LACY M.D. Performed By: #### H S TROP ####[address] Troponin I High Sensitivity 16 pg/mL Normal 0-20 [facility] Comment on above: Result Comment: PERF ORMED BY: [place] [address] PATHOLOGIST [employer] SCOUT DIANDRA LACY M.D. Performed By: #### P T #### [facility] [address] [place] [address] Troponin I.cardiac [Mass/vol ume] in Serum or Plasma by High sensitivity methodOrdered By: Hiral Interiano on 08-11-2022 Troponin I.cardiac High sensitivity method [Mass/Vol] 42 pg/mL 0-20 [facility] URINE MICROSCOPIC ONLYon BACTERIA TRACE Abnormal NONE SEEN [facility] Comment on above: Performed By: #### T SH, LIPID, T4, FT3, CMP #### [facility] [address] [address] [address] Alicia Patel Bacteria identified Cx Nom (U) NOT INDICATED Normal [facility] Comment on above: Performed By: #### T SH, LIPID, T4, FT3, CMP #### [facility] [address] [address] [address] Alicia Patel CAST NONE SEEN Normal NONE SEEN [facility] Comment on above: Performed By: #### T SH, LIPID, T4, FT3, CMP #### [facility] [address] [address] [address] Alicia Patel Crystals LM Nom (Urine sed) NONE SEEN Normal NONE SEEN [facility] Comment on above: Performed By: #### T SH, LIPID, T4, FT3, CMP #### [facility] [address] [address] [address] Alicia Patel Epithelial cells LM Ql (Urine sed) RARE Normal NONE SEEN /RARE [facility] Comment on above: Performed By: #### T SH, LIPID, T4, FT3, CMP #### [facility] [address] [address] [address] Alicia Patel MUCOUS NONE SEEN Normal NONE SEEN [facility] Comment on above: Performed By: #### T SH, LIPID, T4, FT3, CMP #### [facility] [address] [address] [address] Alicia Patel RBC 2-5 Abnormal 0-2 [facility] Comment on above: Performed By: #### T SH, LIPID, T4, FT3, CMP #### [facility] [address] [address] [address] Alicia Patel WBC 2-5 Abnormal NONE SEEN [facility] Comment on above: Performed By: #### T SH, LIPID, T4, FT3, CMP #### [facility] [address] [place] [address] Dr. Alicia Patel XR CHEST 1 Von [...] by: YOGESH BYERS Date: 2022-08-11 04:27 Normal [facility] XR chest 1V portableon 08-11 XR chest 1V portable [facility] Main [place] [address] [place] [address] XRay Report Signed Patient: Victorino Smyth MR#: [id number] : 1940 Acct:[id number] Age/Sex: 82 / M ADM Date: 08/11/22 Loc: Room: [address] [place] [address] Type: ADM IN Attending Dr: Hiral Interiano [...] Rehan Fuentes M.D.08/11/2022 4:10 PM Dictation Location: [address] [address] Transcribed By: [facility] 08/11/22 1610 Dictated By: Rehan Fuentes DO 08/11/22 1602 Signed By: 08/11/22 1610 [facility] Covid-19 PCR (CVDTBH)on SARS-CoV-2 (COVID-19) RNA SAVANNAH+probe Ql (Unsp spec) Not detected Normal NOT DETECTED [facility] Comment on above: Result Comment: This test is not yet approved or cleared by the [place] FDA. When there are no FDA-approved or cleared tests available, and other criteria are met, FDA can make tests available under an emergency access mechanism called an Emergency Use Authorization (EUA). The EUA for this test is supported by the Field Mechanic of Health and Human Service's (HHS's) declaration [...] T SH, LIPID, T4, FT3, CMP #### [facility] [address] [place] [address] Dr. Alicia Patel INFLUENZA A AND B AGon 08-02 [facility] SEE BELOW Normal [facility] Comment on above: Result Comment: Nega tive for Flu A protein angiten. Infection due to Flu A cannot be ruled out. Flu A angiten in the sample may be below the detection limit of the test. Performed By: #### T SH, LIPID, T4, FT3, CMP #### [facility] [address] [place] [address] Dr. Alicia Patel [facility] SEE BELOW Normal [facility] Comment on above: Result Comment: Nega tive for Flu B protein antigen. Infection due to Flu B cannot be ruled out. Flu B antigen in the sample may be below the detection limit of the test. Performed By: #### T SH, LIPID, T4, FT3, CMP #### [facility] [address] [place] [address] Dr. Alicia Patel INFLUENZA A AG Negative Normal NEGATIVE SEE COMMENT [facility] Comment on above: Performed By: #### T SH, LIPID, T4, FT3, CMP #### [facility] [address] [place] [address] Dr. Alicia Patel INFLUENZA B AG Negative Normal NEGATIVE SEE COMMENT [facility] Comment on above: Performed By: #### T SH, LIPID, T4, FT3, CMP #### [facility] [address] [place] [address] Dr. Alicia Patel PTH INTACTon 05-25-2022 PTH, Intact 47 pg/mL Normal 15-65 [facility] Comment on above: Performed By: #### T SH, LIPID, T4, FT3, CMP #### [facility] [address] [place] [address] Dr. Alicia Patel ALBUMINon 05-24-2022 Albumin [Mass/Vol] 3.9 g/dL Normal 3.4-5.0 [facility] Comment on above: Performed By: #### T SH, LIPID, T4, FT3, CMP #### [facility] [address] [place] [address] Dr. Alicia Patel HEMOGRAM AND PLATELon 2021 Hematocrit (Bld) [Volume fraction] 42.1 % Normal 42.0-54.0 [facility] Comment on above: Performed By: #### T SH, LIPID, T4, FT3, CMP #### [facility] [address] [place] [address] Dr. Alicia Patel Hemoglobin (Bld) [Mass/Vol] 14.7 g/dL Normal 14.0-18.0 [facility] Comment on above: Performed By: #### T SH, LIPID, T4, FT3, CMP #### [facility] [address] [place] [address] Dr. Alicia Patel MCH (RBC) [Entitic mass] 33.2 pg Normal 25.9-34.0 [facility] Comment on above: Performed By: #### T SH, LIPID, T4, FT3, CMP #### [facility] [address] [place] [address] Dr. Alicia Patel MCHC (RBC) [Mass/Vol] 34.9 g/dL Normal 29.9-35.2 [facility] Comment on above: Performed By: #### T SH, LIPID, T4, FT3, CMP #### [facility] [address] [place] [address] Dr. Alicia Patel MCV (RBC) [Entitic vol] 95.0 fL Critically high 80.0-94.0 [facility] Comment on above: Performed By: #### T SH, LIPID, T4, FT3, CMP #### [facility] [address] [place] [address] Dr. Alicia Patel PLT 190 103/ul Normal 150-450 [facility] Comment on above: Performed By: #### T SH, LIPID, T4, FT3, CMP #### [facility] [address] [place] [address] Dr. Alicia Patel RBC 4.43 106/ul Critically low 4.70-6.10 [facility] Comment on above: Performed By: #### T SH, LIPID, T4, FT3, CMP #### [facility] [address] [place] [address] Dr. Alicia Patel WBC 7.0 103/ul Normal 4.0-11.0 [facility] Comment on above: Performed By: #### T SH, LIPID, T4, FT3, CMP #### [facility] [address] [place] [address] Dr. Alicia Patel MAGNESIUMon 05-24-2022 Magnesium [Mass/Vol] 1.7 mg/dL Critically low 1.8-2.4 [facility] Comment on above: Performed By: #### T SH, LIPID, T4, FT3, CMP #### [facility] [address] [place] [address] Dr. Alicia Patel PHOSPHORUSon 05-24-2022 Phosphate [Mass/Vol] 3.7 mg/dL Normal 2.6-4.7 [facility] Comment on above: Performed By: #### T SH, LIPID, T4, FT3, CMP #### [facility] [address] [place] [address] Dr. Alicia Patel PROF CHEM 8 (BAS METB)on Anion gap [Moles/Vol] 11.2 mmol/L Normal Th [facility] Comment on above: Performed By: #### U RTPCR #### [facility] [address] [address] [address] Alicia Patel Calcium [Mass/Vol] 9.1 mg/dL Normal 8.5-10.1 [facility] Comment on above: Performed By: #### U RTPCR #### [facility] [address] [address] [address] Alicia Patel Chloride [Moles/Vol] 104 mmol/L Normal 98-107 [facility] Comment on above: Performed By: #### U RTPCR #### [facility] [address] [address] [address] Alicia Patle CO2 [Moles/Vol] 29.2 mmol/L Normal 21.0-32.0 [facility] Comment on above: Performed By: #### U RTPCR #### [facility] [address] [address] [address] Alicia Patel Creatinine [Mass/Vol] 1.40 mg/dL Critically high 0.70-1.30 [facility] Comment on above: Performed By: #### U RTPCR #### [facility] [address] [address] [address] Alicia Patel EGFR-AF CYPRIOT 59 mL/min/1.73m2 Critically low >=60 [facility] Comment on above: Performed By: #### U RTPCR #### [facility] [address] [address] [address] Alicia Patel EGFR-NON AF CYPRIOT 49 mL/min/1.73m2 Critically low >=60 [facility] Comment on above: Performed By: #### U RTPCR #### [facility] [address] [address] [address] Alicia Patel Glucose [Mass/Vol] 148 mg/dL Critically high 74-106 [facility] Comment on above: Performed By: #### U RTPCR #### [facility] [address] [address] [address] Alicia Patel Potassium [Moles/Vol] 4.4 mmol/L Normal 3.5-5.1 [facility] Comment on above: Performed By: #### U RTPCR #### [facility] [address] [address] [address] Alicia Patel Sodium [Moles/Vol] 140 mmol/L Normal 136-145 [facility] Comment on above: Performed By: #### U RTPCR #### [facility] [address] [place] [address] Dr. Alicia Patel Urea nitrogen [Mass/Vol] 16.0 mg/dL Normal 7.0-18.0 [facility] Comment on above: Performed By: #### U RTPCR #### [facility] [address] [place] [address] Dr. Alicia Patel Urea nitrogen/Creatinine [Mass ratio] 11.4 mg/mg Normal [facility] Comment on above: Performed By: #### U RTPCR #### [facility] [address] [place] [address] Dr. Alicia Patel UA RANDOM W/MICROSCOPICon BACTERIA NONE SEEN Normal NONE SEEN [facility] Comment on above: Performed By: #### T SH, LIPID, T4, FT3, CMP #### [facility] [address] [place] [address] Dr. Alicia Patel Bilirubin Ql (U) Negative Normal NEGATIVE [facility] Comment on above: Performed By: #### T SH, LIPID, T4, FT3, CMP #### [facility] [address] [place] [address] Dr. Alicia Patel CAST NONE SEEN Normal NONE SEEN [facility] Comment on above: Performed By: #### T SH, LIPID, T4, FT3, CMP #### [facility] [address] [place] [address] Dr. Alicia Patel Clarity (U) CLEAR Normal CLEAR [facility] Comment on above: Performed By: #### T SH, LIPID, T4, FT3, CMP #### [facility] [address] [address] [address] Alicia Patel Color (U) LT. YELLOW Normal YELLOW [facility] Comment on above: Performed By: #### T SH, LIPID, T4, FT3, CMP #### [facility] [address] [address] [address] Alicia Patel Crystals LM Nom (Urine sed) NONE SEEN Normal NONE SEEN [facility] Comment on above: Performed By: #### T SH, LIPID, T4, FT3, CMP #### [facility] [address] [address] [address] Alicia Patel Epithelial cells LM Ql (Urine sed) FEW Abnormal NONE SEEN /RARE [facility] Comment on above: Performed By: #### T SH, LIPID, T4, FT3, CMP #### [facility] [address] [place] [address] Dr. Alicia Patel Glucose Ql (U) Negative Normal NEGATIVE [facility] Comment on above: Performed By: #### T SH, LIPID, T4, FT3, CMP #### [facility] [address] [place] [address] Dr. Alicia Patel Hemoglobin Ql (U) Negative Normal NEGATIVE [facility] Comment on above: Performed By: #### T SH, LIPID, T4, FT3, CMP #### [facility] [address] [place] [address] Dr. Alicia Patel Ketones Ql (U) Negative Normal NEGATIVE [facility] Comment on above: Performed By: #### T SH, LIPID, T4, FT3, CMP #### [facility] [address] [place] [address] Dr. Alicia Patel LEUKOCYTES Negative Normal NEGATIVE [facility] Comment on above: Performed By: #### T SH, LIPID, T4, FT3, CMP #### [facility] [address] [address] [address] Alicia Patel MUCOUS NONE SEEN Normal NONE SEEN [facility] Comment on above: Performed By: #### T SH, LIPID, T4, FT3, CMP #### [facility] [address] [place] [address] Dr. Alicia Patel Nitrite Ql (U) Negative Normal NEGATIVE [facility] Comment on above: Performed By: #### T SH, LIPID, T4, FT3, CMP #### [facility] [address] [place] [address] Dr. Alicia Patel pH (U) 5.5 [pH] Normal 5-9 [facility] Comment on above: Performed By: #### T SH, LIPID, T4, FT3, CMP #### [facility] [address] [place] [address] Dr. Alicia Patel RBC NONE SEEN Abnormal 0-2 [facility] Comment on above: Performed By: #### T SH, LIPID, T4, FT3, CMP #### [facility] [address] [place] [address] Dr. Alicia Patel SPEC GRAVITY 1.020 Normal 1.005-<=1. 025 [facility] Comment on above: Performed By: #### T SH, LIPID, T4, FT3, CMP #### [facility] [address] [place] [address] Dr. Alicia Patel UA PROTEIN Negative Normal NEGATIVE/ TRACE [facility] Comment on above: Performed By: #### T SH, LIPID, T4, FT3, CMP #### [facility] [address] [place] [address] Dr. Alicia Patel Urobilinogen Qn (U) 0.2 {Wil'U}/dL Normal 0.2 - 1. 0 [facility] Comment on above: Performed By: #### T SH, LIPID, T4, FT3, CMP #### [facility] [address] [place] [address] Dr. Alicia Patel WBC NONE SEEN Normal NONE SEEN [facility] Comment on above: Performed By: #### T SH, LIPID, T4, FT3, CMP #### [facility] [address] [place] [address] Dr. Alicia Patel URIC ACID SERUMon 05-24-2022 Urate [Mass/Vol] 5.6 mg/dL Normal 3.5-7.2 [facility] Comment on above: Performed By: #### T SH, LIPID, T4, FT3, CMP #### [facility] [address] [address] [address] Alicia Patel URINE T PROTEIN CREAT RATIOo n 05-24-2022 Protein (U) [Mass/Vol] 26.0 mg/dL Critically high <=12.0 [facility] Comment on above: Performed By: #### T SH, LIPID, T4, FT3, CMP #### [facility] [address] [address] [address] Alicia Patel UR PROT CREAT RAT 0.34 Normal [facility] Comment on above: Performed By: #### T SH, LIPID, T4, FT3, CMP #### [facility] [address] [address] [address] Alicia Patel URINE CREAT 77.39 mg/dL Normal 20.00-300. 00 [facility] Comment on above: Performed By: #### T SH, LIPID, T4, FT3, CMP #### [facility] [address] [address] [address] Alicia Patel Vital Signs Date Time Vital Sign Value Performing Clinician Facility 06-14-2023 11:00-0500 Body height 175.26 cm Alicia Brit Other [facility] Other 06-14-2023 11:00-0500 Body mass index (BMI) [Ratio] 38.51 kg/m2 Alicia Brit Other [facility] Other 06-14-2023 11:00-0500 Body temperature 97.2 [degF] Alicia Brit Other [facility] Other 06-14-2023 11:00-0500 Body weight 118.3 kg Alicia Brit Other [facility] Other 06-14-2023 11:00-0500 Diastolic blood pressure 72 mm[Hg] Alicia Brit Other [facility] Other 06-14-2023 11:00-0500 Respiratory rate 18 /min Alicia Brit Other [facility] Other 06-14-2023 11:00-0500 SaO2% (BldA) [Mass fraction] 95 % Alicia Brit Other [facility] Other 06-14-2023 11:00-0500 Systolic blood pressure 122 mm[Hg] Alicia Brit Other [facility] Other 11-29-2022 10:20-0400 Body height 175.26 cm Alicia Brit Other [facility] Other 11-29-2022 10:20-0400 Body mass index (BMI) [Ratio] 36.77 kg/m2 Alicia Brit Other [facility] Other 11-29-2022 10:20-0400 Body temperature 96.3 [degF] Alicia Brit Other [facility] Other 11-29-2022 10:20-0400 Body weight 112.95 kg Alicia Brit Other [facility] Other 11-29-2022 10:20-0400 Diastolic blood pressure 72 mm[Hg] Alicia Brit Other [facility] Other 11-29-2022 10:20-0400 Respiratory rate 18 /min Alicia Brit Other [facility] Other 11-29-2022 10:20-0400 SaO2% (BldA) [Mass fraction] 96 % Alicia Brit Other [facility] Other 11-29-2022 10:20-0400 Systolic blood pressure 137 mm[Hg] Alicia Brit Other [facility] Other 10-07-2022 17:25-0400 Heart rate 66 /min Ni OLIVARES [facility] 10-07-2022 17:25-0400 SaO2% (BldA) [Mass fraction] 92 % Ni OLIVARES [facility] 10-07-2022 17:25-0400 Respiratory rate 16 /min Ni OLIVARES [facility] 10-07-2022 17:24-0400 Body temperature 97.7 [degF] Ni OLIVARES [facility] 10-07-2022 17:24-0400 Diastolic blood pressure 74 mm[Hg] Ni OLIVARES [facility] 10-07-2022 17:24-0400 Mean blood pressure 106 mm[Hg] Ni OLIVARES [facility] 10-07-2022 17:24-0400 Systolic blood pressure 170 mm[Hg] Ni OLIVARES [facility] 10-07-2022 16:18-0400 Heart rate 61 /min Ni OLIVARES [facility] 10-07-2022 16:18-0400 SaO2% (BldA) [Mass fraction] 95 % Ni COOK [facility] 10-07-2022 16:17-0400 Diastolic blood pressure 81 mm[Hg] Ni Linkpass [facility] 10-07-2022 16:17-0400 Mean blood pressure 103 mm[Hg] Ni COOK [facility] 10-07-2022 16:17-0400 Systolic blood pressure 148 mm[Hg] Ni COOK [facility] 10-07-2022 16:17-0400 Respiratory rate 16 /min Ni COOK [facility] 10-07-2022 16:11-0400 Diastolic blood pressure 75 mm[Hg] Ni COOK [facility] 10-07-2022 16:11-0400 Heart rate 58 /min Ni COOK [facility] 10-07-2022 16:11-0400 Mean blood pressure 98 mm[Hg] Ni COOK [facility] 10-07-2022 16:11-0400 Respiratory rate 17 /min Ni COOK [facility] 10-07-2022 16:11-0400 SaO2% (BldA) [Mass fraction] 97 % Ni COOK [facility] 10-07-2022 16:11-0400 Systolic blood pressure 144 mm[Hg] Ni COOK [facility] 10-07-2022 16:00-0400 Mean blood pressure 92 mm[Hg] Ni COOK [facility] 10-07-2022 16:00-0400 Respiratory rate 13 /min Ni COOK [facility] 10-07-2022 15:55-0400 Mean blood pressure 86 mm[Hg] Ni COOK [facility] 10-07-2022 15:55-0400 Respiratory rate 17 /min Ni COOK [facility] 10-07-2022 15:46-0400 Body temperature 98.06 [degF] Ni OLIVARES [facility] 10-07-2022 15:40-0400 Respiratory rate 15 /min Ni OLIVARES [facility] 10-07-2022 10:14-0400 Mean blood pressure 97 mm[Hg] Ni OLIVARES [facility] 10-07-2022 10:14-0400 Blood Pressure Location Ni OLIVARES [facility] 10-07-2022 10:13-0400 Heart rate 64 /min Ni OLIVARES [facility] 10-07-2022 10:12-0400 Body temperature 98.06 [degF] Ni OLIVARES [facility] 10-07-2022 10:12-0400 Blood Pressure Location Ni OLIVARES [facility] 09-15-2022 14:40-0400 Body height 175.26 cm Alicia Brit Other [facility] Other 09-15-2022 14:40-0400 Body mass index (BMI) [Ratio] 37.48 kg/m2 Alicia Brit Other [facility] Other 09-15-2022 14:40-0400 Body weight 115.12 kg Alicia Brit Other [facility] Other 09-15-2022 14:40-0400 Diastolic blood pressure 73 mm[Hg] Alicia Brit Other [facility] Other 09-15-2022 14:40-0400 Respiratory rate 18 /min Alicia Brit Other [facility] Other 09-15-2022 14:40-0400 SaO2% (BldA) [Mass fraction] 97 % Alicia Brit Other [facility] Other 09-15-2022 14:40-0400 Systolic blood pressure 138 mm[Hg] Alicia Brit Other [facility] Other 09-06-2022 10:01-0400 Blood Pressure Location Ni Linkpass [facility] 09-06-2022 10:01-0400 Diastolic blood pressure 70 mm[Hg] Ni Linkpass [facility] 09-06-2022 10:01-0400 Heart rate 68 /min Ni Linkpass [facility] 09-06-2022 10:01-0400 Systolic blood pressure 132 mm[Hg] Ni [facility]pass [facility] 08-15-2022 12:16-0500 Body temperature 97.8 [degF] MD [...] Body height 175.26 cm Alicia Brit Other [facility] Other 06-01-2022 11:40-0500 Body mass index (BMI) [Ratio] 37.77 kg/m2 Alicia Brit Other [facility] Other 06-01-2022 11:40-0500 Body temperature 97.5 [degF] Alicia Brit Other [facility] Other 06-01-2022 11:40-0500 Body weight 116.03 kg Alicia Brit Other [facility] Other 06-01-2022 11:40-0500 Diastolic blood pressure 71 mm[Hg] Alicia Brit Other [facility] Other 06-01-2022 11:40-0500 Respiratory rate 18 /min Alicia Brit Other [facility] Other 06-01-2022 11:40-0500 SaO2% (BldA) [Mass fraction] 93 % Alicia Brit Other [facility] Other 06-01-2022 11:40-0500 Systolic blood pressure 134 mm[Hg] Alicia Brit Other [facility] Other 11-24-2021 11:20-0400 Body height 175.26 cm Alicia Brit Other [facility] Other 11-24-2021 11:20-0400 Body mass index (BMI) [Ratio] 36.26 kg/m2 Alicia Brit Other [facility] Other 11-24-2021 11:20-0400 Body temperature 96.4 [degF] Alicia Brit Other [facility] Other 11-24-2021 11:20-0400 Body weight 111.4 kg Alicia Brit Other [facility] Other 11-24-2021 11:20-0400 Diastolic blood pressure 72 mm[Hg] Alicia Brit Other [facility] Other 11-24-2021 11:20-0400 Respiratory rate 18 /min Alicia Brit Other [facility] Other 11-24-2021 11:20-0400 SaO2% (BldA) [Mass fraction] 95 % Alicia Brit Other [facility] Other 11-24-2021 11:20-0400 Systolic blood pressure 139 mm[Hg] Alicia Brit Other [facility] Other 10-26-2021 09:17-0400 Blood Pressure Location Milton BRAUN [facility] 10-26-2021 09:17-0400 Diastolic blood pressure 69 mm[Hg] Milton BRAUN [facility] 10-26-2021 09:17-0400 Heart rate 64 /min Milton BRAUN [facility] 10-26-2021 09:17-0400 Respiratory rate 16 /min Milton BRAUN [facility] 10-26-2021 09:17-0400 Systolic blood pressure 139 mm[Hg] Milton BRAUN [facility] 05-26-2021 11:00-0500 Body height 175.26 cm Alicia Brit Other [facility] Other 05-26-2021 11:00-0500 Body mass index (BMI) [Ratio] 34.4 kg/m2 Alicia Brit Other [facility] Other 05-26-2021 11:00-0500 Body temperature 96.9 [degF] Alicia Brit Other [facility] Other 05-26-2021 11:00-0500 Body weight 105.69 kg Alicia Brit Other [facility] Other 05-26-2021 11:00-0500 Diastolic blood pressure 80 mm[Hg] Alicia Brit Other [facility] Other 05-26-2021 11:00-0500 Respiratory rate 18 /min Alicia Brit Other [facility] Other 05-26-2021 11:00-0500 SaO2% (BldA) [Mass fraction] 94 % Alicia Brit Other [facility] Other 05-26-2021 11:00-0500 Systolic blood pressure 136 mm[Hg] Alicia Brit Other [facility] Other Encounters Encounter Date Encounter Type Care Provider Facility Start: 06-12-2024 ambulatory Ni OLIVARES Facility :[facility] Start: 07-02-2023 End: 07-02-2023 ambulatory Ni Olivares Facility:[facility] Start: 07-02-2023 End: 07-02-2023 ambulatory MD Tray Alfaro Work Phone: [facility] Work Phone: Start: 07-02-2023 End: 07-02-2023 Patient encounter procedure MD Tray Alfaro Work Phone: [facility] [place] Work Phone: Start: 06-28-2023 End: 06-28-2023 ambulatory Ni Olivares Facility:[facility] Start: 06-28-2023 End: 06-28-2023 ambulatory MD Tray Alfaro Work Phone: [facility] Work Phone: Start: 06-28-2023 End: 06-28-2023 Patient encounter procedure MD Tray Alfaro Work Phone: [facility] [place] Work Phone: Start: 06-16-2023 End: 06-16-2023 ambulatory Ni Olivares Facility:[facility] Start: 06-16-2023 End: 06-16-2023 ambulatory MD Tray Alfaro Work Phone: [facility] Work Phone: Start: 06-16-2023 End: 06-16-2023 Patient encounter procedure MD Tray Alfaro Work Phone: [facility] [place] Work Phone: Start: 06-14-2023 Office outpatient vi sit 25 minutes Alicia Brit [facility] Start: 06-14-2023 End: 06-15-2023 ambulatory Ni OLIVARES [facility] Other Start: 06-14-2023 End: 06-14-2023 Patient encounter procedure Ni OLIVARES [facility] Start: 01-26-2023 End: 01-26-2023 ambulatory [facility] Start: 12-20-2022 End: 12-21-2022 ambulatory Ni OLIVARES Facility:[facility] Start: 12-20-2022 End: 12-20-2022 Patient encounter procedure Ni OLIVARES [facility] Start: 12-02-2022 End: 12-02-2022 ambulatory Ni OLIVARES Facility:[facility] Start: 11-29-2022 End: 11-29-2022 ambulatory Alicia Brit Other [facility] Other Start: 11-29-2022 Office outpatient vi sit 25 minutes Alicia Brit [facility] Start: 11-18-2022 End: 11-19-2022 ambulatory MD ALICIA PEREA Facility:[facility] Start: 11-18-2022 End: 11-19-2022 ambulatory Ni OLIVARES Facility:[facility] Start: 11-17-2022 End: 11-17-[address] [facility] Start: 11-17-2022 End: 11-17-2022 Encounter for preprocedural cardiovascular examination [facility] Start: 11-10-2022 End: 11-24-[address] TRAY ALFARO . Facility: Start: 11-08-2022 End: 11-08-[address] TRAY ALFARO . Facility: Start: 11-06-2022 End: 11-07-[address] TRAY ALFARO . Facility: Start: 10-29-2022 End: 10-30-2022 ambulatory Milton BRAUN Facility:[facility] Start: 10-29-2022 End: 10-29-2022 Patient encounter procedure Milton BRAUN [facility] Start: 10-26-2022 End: 10-27-2022 ambulatory IRIS CORONEL Facility: Start: 10-22-2022 End: 10-23-[address] MILTON BRAUN . Facility: Start: 10-15-2022 End: 10-16-[address] TRAY ALFARO . Facility: Start: 10-14-2022 End: 10-15-2022 ambulatory IRIS CORONEL Facility: Start: 10-14-2022 End: 10-14-[address] [facility] Start: 10-07-2022 End: 10-07-2022 ambulatory Ni OLIVARES Facility:[facility] Start: 10-07-2022 End: 10-07-2022 Admission to same day surgery center Ni OLIVARES [facility] Start: 09-15-2022 End: 09-15-2022 ambulatory Alicia Perea Other [facility] Other Start: 09-15-2022 Office outpatient vi sit 25 minutes Alicia Brit [facility] Start: 09-14-2022 End: 09-15-2022 ambulatory Ni OLIVARES Facility:[id number] Start: 09-13-2022 End: 09-14-2022 ambulatory ALICIA BRIT Facility:[facility] Start: 09-06-2022 End: 09-07-2022 ambulatory Ni OLIVARES Facility:[facility] Start: 09-06-2022 End: 09-06-2022 Patient encounter procedure Ni OLIVARES [facility] Start: 09-01-2022 End: 09-02-[address] NI [...] Start: 08-16-2022 ambulatory Ni OLIVARES Facility:[facility] Start: 08-11-2022 ambulatory Facility:[facility] Start: 08-11-2022 [...] of inpatient MD Tray Alfaro Work Phone: [facility] Work Phone: Start: 08-11-2022 End: 08-14-2022 ambulatory THADDEUS DAUGHERTY Facility:[facility] Start: 08-02-2022 End: 08-02-[address] TRAY ALFARO . Facility:[facility] Start: 07-08-2022 End: 07-23-[address] TRAY ALFARO . Facility:[facility] Start: 06-01-2022 End: 06-01-2022 ambulatory Alicia Brit Other [facility] Other Start: 06-01-2022 Office outpatient vi sit 25 minutes Alicia Brit [facility] Start: 05-24-2022 End: 05-25-2022 ambulatory ALICIA BRIT Facility:[facility] Start: 02-03-2022 End: 02-04-[address] TRAY ALFARO . Facility:[facility] Start: 11-24-2021 End: 11-24-2021 ambulatory Alicia Brit Other [facility] Other Start: 11-24-2021 Office outpatient vi sit 25 minutes Alicia Brit [facility] Start: 10-26-2021 End: 10-26-2021 Patient encounter procedure Milton BRAUN [facility] Start: 05-26-2021 End: 05-26-2021 ambulatory Alicia Brit Other [facility] Other Start: 05-26-2021 Office outpatient vi sit [...] T SH, LIPID, T4, FT3, CMP #### [facility] [address] [address] [address] Alicia Patel Start: 10-07-2022 Extracorporeal shock wave lithotripsy of calculus of kidney Ni OLIVARES Start: 08-21-2022 PSA screening ALICIA QAD IR Comment on above: Performed By: #### P SAD #### [facility] [address] [address] [address] Alicia Patel Start: 08-13-2022 Cystoscopy MD [...] Hospital Start: 08-14-2022 Aerobic Culture Aerobic Culture [facility] Start: 08-14-2022 Investigation of tra nsfusion reaction Gram Stain [facility] Start: 08-11-2022 Hospital admission [facility] Start: 08-11-2022 Referral to speech scientist [facility] Start: 08-11-2022 Referral to private wealth advisor [facility] Start: 08-11-2022 Referral to urologist [facility] CT Chest WO contrast [facility] Patient referral [facility] Work Phone: Renal function 2000 panel - Serum or Plasma [facility] Immunizations Immunization Date Immunization Notes Care Provider Fa cility 05-02-2023 pneumococcal 20-marco nt conjugate vaccine Ni OLIVARES [facility] 05-02-2023 tetanus toxoid, redu martha diphtheria toxoid, and acellular pertussis vaccine, adsorbed Ni OLIVARES [facility] 03-29-2022 SARS-CoV-2 (COVID-19 ) [id number] Ni OLIVARES [facility] 05-18-2021 SARS-CoV-2 (COVID-19 ) Ad26 vaccine, recombinant Ni OLIVARES [facility] 03-30-2021 influenza virus vaccine, unspecified formulation Ni OLIVARES [facility] 09-01-2020 SARS-CoV-2 (COVID-19 ) Ad26 vaccine, recombinant Ni OLIVARES [facility] 06-27-2020 SARS-CoV-2 (COVID-19 ) Ad26 vaccine, recombinant Milton BRAUN [facility] 04-18-2020 influenza virus vaccine, unspecified formulation Ni OLIVARES [facility] 02-05-2020 zoster vaccine recombinant Ni OLIVARES [facility] 12-06-2019 zoster vaccine recombinant Ni OLIVARES [facility] 04-04-2019 influenza virus vaccine, unspecified formulation Milton BRAUN [facility] 04-05-2017 influenza virus vaccine, unspecified formulation Ni OLIVARES [facility] 04-05-2017 pneumococcal conjuga te vaccine, 13 valent Ni OLIVARES [facility] 04-12-2016 influenza, unspecifi ed formulation Ni OLIVARES [facility] Payers Date Payer Category Payer Medicare [id number] 2022 Self-pay [id number] 1959 Private Health Insurance [id number] 2..[id number] 1959 Private Health Insurance [id number] 1942 Unknown [id number] 2.16.840.1.124794.3.579.2.356 1942 Unknown [id number] 2.16.840.1.766161.3.579.2.593 1942 Unknown [id number] 2.16.840.1.347294.3.579.2.593 1942 Unknown [id number] 2.16.840.1.876089.3.579.2.593 1942 Unknown [id number] 2.16.840.1.938914.3.579.2.593 1942 Unknown [id number] 2.16.840.1.405770.3.579.2.593 023 Unknown [id number] 2.16.840.1.699783.3.579.2.593 1942 Unknown [id number] 2.16.840.1.046707.3.579.2.593 1942 Unknown [id number] 2.16.840.1.887778.3.579.2.593 1942 Unknown [id number] 2.16.840.1.665387.3.579.2.593 1942 Unknown [id number] 2.16.840.1.177275.3.579.2.593 1942 Unknown [id number] 2.16.840.1.820540.3.579.2.593 1942 Unknown [id number] 2.16.840.1.631305.3.579.2.593 1942 Unknown [id number] 2.16.840.1.945695.3.579.2.593 1942 Unknown [id number] 2.16.840.1.036314.3.579.2.593 1942 Unknown [id number] 2.16.840.1.793273.3.579.2.593 1942 Unknown [id number] 2.16.840.1.992053.3.579.2.593 1942 Unknown [id number] 2.16.840.1.120251.3.579.2.593 1942 Unknown [id number] 2.16.840.1.860670.3.579.2.593 1942 Unknown [id number] 2.16.840.1.317033.3.579.2.593 1942 Unknown [id number] 2.16.840.1.384839.3.579.2.727 1942 Unknown [id number] 2.16.840.1.095112.3.579.2.727 1942 Unknown [id number] 2.16.840.1.629041.3.579.2. 1942 Unknown [id number] 2.16.840.1.576948.3.579.2.72 1942 Unknown [id number] 2.16.840.1.938513.3.579.2. 1942 Unknown [id number] 2.16.840.1.116704.3.579.2.72 1942 Unknown [id number] 2.16.840.1.369017.3.579.2. 1942 Unknown [id number] 2.16.840.1.958261.3.579.2. 1942 Unknown [id number] 2.16.840.1.912346.3.579.2.72 1942 Unknown [id number] 2.16.840.1.408100.3.579.2. 1942 Unknown [id number] 2.16.840.1.920902.3.579.2.72 Medicare [id number] 2.16.8 40.1.987236.19 Medicare [id number] 2.1 6.840.1.742005.19 Unknown [place] BC/BS [id number] Unknown [id number] 2.16.840.1.473669.3.579.2.531 Unknown [id number] 2.16.840.1.043686.3.579.2.531 Unknown [id number] 2.16.840.1.591106.3.579.2.531 Unknown [id number] 2.16.840.1.948002.3.579.2.531 Unknown [id number] 2.16.840.1.948053.3.579.2.531 Social History Date Type Detail Facility Start: 08-18-2020 End: 08-13-2022 Tobacco smoking status Ex-smoker (finding) [facility] Other Comment on above: quit in 1978 Sex Assigned At Male [facility] Other Start: 1940 Sex Assigned At Male [facility] Tobacco smoking status Never [facility] Comment on above: quit in 1978 Medical Equipment Procedure Code Equipment Code Equipment Origin al Text Equipment Identifier Dates Cystoscopy, with ureteral calculus manipulation and stent placement Polymeric ureteral stent ()[id number] FDA Start: 06-15-2019 Cystoscopy, with ureteral calculus manipulation and stent placement Polymeric ureteral stent ()[id number] FDA Start: 06-15-2019 Cystoscopy, with ureteral calculus manipulation and stent placement Polymeric ureteral stent ()[id number] FDA Start: 08-13-2022 Biopsy, prostate, with US guidance Polymeric ureteral stent ()[id number] FDA Start: 07-04-2019 CYSTOSCOPY URETEROSCOPY Ni OLIVARES MD 12/02/22 Unknown Ureter R {[id number] FDA Start: 12-02-2022 Goals Date Patient Goal Desired Activity /State Functional Status Date Assessment Result Facility 12-20-2022 Functional Status N/A [facility] 09-06-2022 Functional Status N/A [facility] 08-15-2022 Functional status Patient at Baseline [facility] Work Phone: Mental Status Date Assessment Result Facility 08-15-2022 Cognitive function Cognitive Sta tus Patient at Baseline [facility] Work Phone: Clinical Notes 05-26-2021 to 06-14-2023 Note Date & Type Note Facility 06-14-2023 Evaluation note Encounter Date Diagnosis Assessment Notes May, Diabetes mellitus with chronic kidney disease (ICD-10 - E11.22) He has pln-lkfqhib-g ependent type 2 diabetes and currently takes [...] and has normal B12 and folate level. [facility] Other [id number] Hospital Discharge instructions Patient Education 06/14/2023 09:44:12 [...] include: ?8 oz (237 mL) of milk, gbdknds-csbnzhnywlze-ynwge milk, and calcium- fortifiedfruit juice. Calcium-fortified means [...] ?Spinach (cooked), rhubarb, beets, sweet potatoes, and Hong Konger chard. ?Peanuts. ?Potato chips, kuwaiti fries, and baked potatoes with skin on. ?Nuts and nut products. ?Chocolate. If you regularly take a diuretic medicine, make sure to eat at least 1 or 2 servings of fruits or vegetables that are high in potassium each day. These include: ?Avocado. ?Banana. ?Breese, prune, carrot, or tomato juice. ?Baked potato. [...] magnesium, fish oil, or vitamin B6. Take kafy-tti-sjrlnin and prescription medicines only as told by [...] Casseroles. Pizza. Lasagna. Frozen meals. Potato chips. Afghan fries. The items listed above may not [...] provider. Document Revised: 09/23/2022 Document Reviewed: 09/23/2022 [employer] Patient Education 2022 [employer]. Follow Up Care 02/04/2023 14:47:08 With:CARLOS OLIVEROS, Ni Garcia, URL Address: [address] [place] [address] [place], [place] [address]- When: Unknown [facility] [place] [id number] NoteUT Cardiology - [facility] Subjective Victorino Smyth is a [...] March of 2013, and then developed acute NH related to ISR of the LAD stent on 09/28/2016 and underwent emergent Promus JOSE RAMON stent to the LAD at [facility], was on Brilinta but currently on aspirin [...] Disp: , Rfl: liothyronine (more content not included)...[facility] 12-21-2022 [id number]:127[facility]06-26-2023 NoteCystoscopy with Stent Removal ? Voiding after [...] you have a fever over 100 degrees.Gerardo [facility] 12-20-2022 Hospital Discharge instructions Patient Education 12/20/2022 [...] Up Care 12/07/2022 13:42:13 With:Ni CARLOS Address: [facility] [place] [id number] [facility] (1) When:6 months Comments:Call for followup [...] those arrangements as well.Have a great day. [facility]06-05-2023 Evaluation note* Encounter Date Diagnosis Assessment Notes Treatment Notes Treatment Clinical Notes Nov, Diabetes mellitus wi th chronic kidney disease (ICD-10 - E11.22) He has smw-thgahbq-nzsn ndent type 2 diabetes and currently takes [...] and has normal B12 and folate level. Tamr Other [id number] NoteRCRI- 2???points Class III Risk 10.1???% 30-day risk of , NH, or cardiac arrest EKG at last visit [...] and prevent any major fluid shifts. [facility]Un[facility]05-[facility]-2023 NoteCoronary artery disease is stable, angina much improved s/p increased imdur dose and adding ranexa. Continue GDMTUnSouthern [facility] Medical Center05-24-2023 NotePatient here for 1 mo [...] Risk 10.1 % 30-day risk of , NH, or cardiac arrest EKG at last visit SR with 1st Degree AV block- no acute changes. From a cardiology perspective pt may proceed with planned urological procedure, he is a moderate risk for a low-moderate risk procedure. May hold ASA for 5-7 days prior (more content not included)...[facility] 11-17-2022 NoteHypertension is well controlled today 126/60 with increased norvasc and imdur doses Continue norvasc, lisinopril, imdur, Renal function being monitored by nephrologyUnSouthern [facility] 11-17-2022 NoteContinue statin- lipid level well controlledUnSouthern [facility] Medical Center05-24-2023 [id number]:127 [facility]04-20-2023 NoteContinue statinUnSouthern [facility] Medical Center04-20-2023 NoteIncrease imdur to 120 mg and start ranexa as per Dr Huynh's recommendationsUnSouthern [facility] Medical Center04-20-2023 Note Reviewed concerning symptoms and [...] pain, angina, shortness of breath or further concerns.[facility]04-20-2023 NoteUTP CARDIOLOGY PROGRESS NOTE HPI: Victorino Smyth is a 82 y.o. male here for Chest Pain, Coronary Artery Disease, and Hypertension Patient here c/o chest tightness/burning with exertion the past few months. Says it feels similar to 2017 when he had an NH. Has been becoming more intense lately. States [...] March of 2013, and then developed acute NH related to ISR of the LAD stent on 09/28/2016 and underwent emergent Promus JOSE RAMON stent to the LAD at [facility], was on Brilinta but currently on aspirin [...] medications on file p (more content not included)...[facility]04-20-2023 NotePatient here c/o chest tightness with exertion the past few months. Says it feels similar to 2017 when he had an NH. Has been becoming more intense lately. Says [...] pain. All other systems reviewed and are negative.[facility] 10-07-2022 Hospital Discharge instructions Patient Education [...] Follow these instructions at home: Medicines Take pago-uwr-lhhovey and prescription medicines only as told by [...] 07/02/2008 Document Revised: 09/24/2019 Document Reviewed: 05/04/2017 [employer] Patient Education 2020 [employer] Follow Up Care 09/06/2022 10:38:13 With:Ni OLIVARES Address: [address] [place], [place] [id number] Business (1) When: Unknown Comments:We were able [...] prior to considering any other anesthesia procedures. [facility]04-13-2023 Evaluation + Plan noteExtracted from: Title:KALEN post op Author:Timothy Pittman MD Date:10/07/22 Plan Transfer/Discharge: Transfer/Discharge Discharge when meets criteria ( To home ). Extracted from: Title:KALEN GA Author:Timothy Pittman MD Date:10/07/22 Plan [place] [employer]hes[employer] (ASA) physical status classification: Class III. Anesthetic Preoperative Plan: Anesthesia General. Future Appointments Appointment Date:10/29/2022 08:45:00 AM Scheduled Provider:Milton BRAUN MD Location:[facility] Appointment Type:URO Office Visit [facility]03-23-2023 Note [id number]:127[facility] 09-15-2022 Evaluation note* Encounter Date Diagnosis Assessment Notes Treatment Notes Treatment Clinical Notes Aug, Diabetes mellitus wi th chronic kidney disease (ICD-10 - E11.22) He has urf-bvmaouh-zcxt ndent type 2 diabetes and currently takes [...] have advised him to adequately hydrate himself. Tamr Other 03-13-2023 Hospital Discharge instructions Patient Education 09/06/2022 10:27:16 Kidney Stones, Sdmg-rc-Jkhv Kidney Stones Kidney stones are rock-like masses [...] Follow these instructions at home: Medicines Take weid-tjl-esegqpl and prescription medicines only as told by [...] 11/29/2008 Document Revised: 10/30/2019 Document Reviewed: 10/30/2019 [employer] Patient Education 2020 [employer] Follow Up Care 08/17/2022 09:18:37 With:CARLOS OLIVEROS, Ni Garcia, URL Address: [address] [place], [place] [id number]- When: Unknown [facility] [id number] Note [id number]:127[facility] 08-15-2022 Discharge summary Author Hiral Interiano [facility] August 15, 2022 1:50pm Note Date/Time August 15, 2022 1:50pm [facility] [address] [place] [address] Discharge Summary Signed Patient: Victorino Smyth MR#: [id number] : 1940 Acct:[id number] Age/Sex: 82 / M Adm Date: 3 Loc: 4N Room: 9G5626-[address]: Hiral Interiano MD Copies to: [...] history of nephrolithiasis. He initially presented to [facility] with complaint of hypoglycemia and was found to have severe renal failure along with metabolic acidosis and hyperkalemia. CT scan at [place] [facility] showed atrophic left kidney with obstructing [...] is also advised to follow-up with his speech scientist in 4-week. CT scan at [place] ER also showed 0.8 cm nodule on [...] Low-Cholesterol Additional Instructions: Follow-up with your Primary Supervisor [employer] in 4 weeks. Avoid NSAIDs for pain [...] office on Tuesday to schedule follow-up with Board Setter. ) Documented By: Hiral Interiano MD 08/15/22 7208 Signed By: <Electronically signed by Hiral Interiano MD> 08/15/22 7929 [facility] Work Phone: [phone]) 415-638802-19-2023 Progress note Author Alicia Perea [facility] August 15, 2022 12:01pm Note Date/Time August 15, 2022 12:01pm [facility] [address] [place] [address] Nephrology Progress Note Signed Patient: Victorino Smyth MR#: [id number] : 1940 Acct:[id number] Age/Sex: 82 / M Adm Date: 3 Loc: Room: [address] [place] [address] Type: ADM IN Attending Dr: Hiral Interiano MD Copies to: ~ Date of Service: 08/15/2022 Subjective Subjective Narrative: This is a 82-year-old male with a medical history of coronary artery disease s/pPCI, nephrolithiasis, CKD, diabetes mellitus, hypertension, dyslipidemia was presented to the emergency room of [facility] for generalized weakness and low urine output. On evaluation emergency room patient was found to have a life- threatening hyperkalemia with serum potassium 7 mmol/L, acute kidney injurywith elevated serum creatinine 17.8 mg/dL, metabolic acidosis serum bicarbonate 13.5 mmol/L. He was given insulin D50 calcium gluconate in the [place] emergency room. He had a CAT scan abdomen pelvis done which showed obstructive kidney stones in the right UPJ and total atrophy of the left kidney. Case was discussed with the on-call urologist Dr. Olivares and recommended patient needs to be n.p.o. for surgical intervention. He was transferred to [facility] for further care. Patient is history of CKD due to the longstanding DM, HTN and recurrent KELSEA with baseline serum creatinine 1.4 to 1.6 mg/dL. He follows in my office for his CKD care. Patient [facility] hada repeat labs done which showed persistent [...] visible mass Skin: No rashes or bruises STEEL RIGGER: Awake,Alert, following simple command Musculoskeletal: No joint [...] 10 Mg Tablet) 10 mg PO DAILY [facility] Stop: 08/16/23 08:59 Aspirin (Aspirin 81 Mg Tablet.Dr) 81 mg PO DAILY [facility] Stop: 08/12/23 08:59 Last Admin: 08/15/22 09:45 Dose: 81 mg Atorvastatin Calcium (Atorvastatin 40 Mg Tablet) 40 mg PO HS [facility] Stop: 08/11/23 21:59 Last Admin: 08/14/22 21:08 [...] Units/3 Ml Insuln.Pen) 0 units SUBCUT TID.WM.HS [facility]; Protocol Stop: 08/11/23 16:59 Last Admin: 08/15/22 09:46 Dose: 5 units Insulin Glargine (Insulin Glargine 300 Units/3 Ml Insuln.Pen) 5 units SUBCUT DAILY [facility] Stop: 08/13/23 08:59 Last Admin: 08/15/22 09:47 Dose: 5 units Melatonin (Melatonin 5 Mg Tablet) 5 mg PO QHS PRN PRN Reason: insomnia Stop: 08/14/23 21:59 Last Admin: 08/14/22 21:08 Dose: 5 mg Metoprolol Tartrate (Metoprolol Tartrate 50 Mg Tablet) 50 mg PO BID [facility] Stop: 08/11/23 20:59 Last Admin: 08/15/22 09:45 [...] signed by Alicia Perea MD> 08/15/22 1201 [facility] Work Phone: [phone]) 141-226402-19-2023 Progress note Author Cade Alvarez [facility] August 15, 2022 11:31am Note Date/Time August 15, 2022 11:31am [facility] [address] [place] [address] Cardiology Progress Note Signed Patient: Victorino Smyth MR#: [id number] : 1940 Acct:[id number] Age/Sex: 82 / M Adm Date: 3 Loc: 4N Room: [address] [place] [address] Type: ADM IN Attending Dr: Hiral Interiano [...] patient has cardiology follow-up with his primary speech scientist in [place] within 4 weeks of discharge. (2) CAD (coronary artery disease): Code(s): I25.10 - Atherosclerotic heart disease of [place] coronary artery without angina pectoris Status: Acute [...] signed by Cade Alvarez MD> 08/15/22 1131 [facility] Work Phone: 1([phone]) 947-450302-18-2023 Progress note Author Hiral Interiano [facility] August 14, 2022 2:57pm Note Date/Time August 14, 2022 2:49pm [facility] [address] [place] [address] Hospitalist Progress Note Signed Patient: Victorino Smyth MR#: [id number] : 1940 Acct:[id number] Age/Sex: 82 / M Adm Date: 3 Loc: 4N Room: [address] [place] [address] Type: ADM IN Attending Dr: Hiral Interiano [...] Vial SUBCUT 08/12/23 21:59 Not Given Q8HR [facility] Hydralazine HCl 10 mg 08/11/22 13:41 08/14/22 [...] Ml Insuln.Pen SUBCUT 08/11/23 16:59 Not Given TID.[facility] Protocol Insulin Glargine 5 units 08/13/22 09:00 08/14/22 11:59 Insulin Glargine 300 Units/3 Ml Insuln.Pen SUBCUT 08/13/23 08:59 5 units DAILY [facility] Administration Metoprolol Tartrate 50 mg 08/11/22 21:00 [...] days. Documented By: Hiral Interiano MD 08/14/22 1385 Signed By: <Electronically signed by Hiral Interiano MD> 08/14/22 1457 [facility] Work Phone: 1(352) 299-900402-18-2023 Progress note Author Alicia Perea [facility] August 14, 2022 11:55am Note Date/Time August 14, 2022 11:55am [facility] [address] [place] [address] Nephrology Progress Note Signed Patient: Victorino Smyth MR#: [id number] : 1940 Acct:[id number] Age/Sex: 82 / M Adm Date: 3 Loc: 4N Room: [address] [place] [address] Type: ADM IN Attending Dr: Hiral Interiano MD Copies to: ~ Date of Service: 08/14/2022 Subjective Subjective Narrative: This is a 82-year-old male with a medical history of coronary artery disease s/pPCI, nephrolithiasis, CKD, diabetes mellitus, hypertension, dyslipidemia was presented to the emergency room of [facility] for generalized weakness and low urine output. On evaluation emergency room patient was found to have a life- threatening hyperkalemia with serum potassium 7 mmol/L, acute kidney injurywith elevated serum creatinine 17.8 mg/dL, metabolic acidosis serum bicarbonate 13.5 mmol/L. He was given insulin D50 calcium gluconate in the [place] emergency room. He had a CAT scan abdomen pelvis done which showed obstructive kidney stones in the right UPJ and total atrophy of the left kidney. Case was discussed with the on-call urologist Dr. Olivares and recommended patient needs to be n.p.o. for surgical intervention. He was transferred to [facility] for further care. Patient is history of CKD due to the longstanding DM, HTN and recurrent KELSEA with baseline serum creatinine 1.4 to 1.6 mg/dL. He follows in my office for his CKD care. Patient after arrival at the [facility] hada repeat labs done which showed persistent [...] visible mass Skin: No rashes or bruises STEEL RIGGER: Awake,Alert, following simple command Musculoskeletal: No joint [...] 100 Mg Tablet) 100 mg PO BID [facility] Stop: 08/18/22 20:59 Last Admin: 08/14/22 08:23 [...] 5,000 Unit/Ml Vial) 5,000 unit SUBCUT Q8HR [facility] Stop: 08/12/23 21:59 Last Admin: 08/14/22 06:05 Dose: Not Given Hydralazine HCl (Hydralazine 20 Mg/Ml Vial) 10 mg IV-PUSH Q4H PRN PRN Reason: Hypertension Stop: 08/11/23 13:40 Last Admin: 08/14/22 05:44 Dose: 10 mg Ceftriaxone Sodium (Rocephin) 1 gm in 50 mls @ 100 mls/hr IV Q24H [facility] Stop: 08/14/22 14:14 Last Admin: 08/13/22 15:07 Dose: 100 mls/hr Sodium Chloride (0.9% Sodium Chloride 1,000 Ml) 1,000 mls @ 0 mls/hr MISCELLANE.Q0M PRN PRN Reason: Dialysis Stop: 08/11/23 14:19 Last Infusion: 08/12/22 12:38 Dose: Infused Insulin Aspart (Insulin Aspart 300 Units/3 Ml Insuln.Pen) 0 units SUBCUT TID.[facility]; Protocol Stop: 08/11/23 16:59 Last Admin: 02/18/23 [...] Perez Jr., D.O.08/13/2022 2:25 PM Dictation Location: [place] [address] Any impression(s) listed above is documentation that [...] output Documented By: Alicia Perea MD 08/14/22 9321 Signed By: <Electronically signed by Alicia Perea MD> 08/14/22 1405 [facility] Work Phone: [phone]) 380-628802-18-2023 Progress note Author Cade Alvarez [facility] August 14, 2022 11:21am Note Date/Time August 14, 2022 11:21am [facility] [address] [place] [address] Cardiology Progress Note Signed Patient: Victorino Smyth MR#: [id number] : 1940 Acct:[id number] Age/Sex: 82 / M Adm Date: 3 Loc: 4N Room: [address] [place] [address] Type: ADM IN Attending Dr: Hiral Interiano [...] % (Auto) 79.6 Lymph % (Auto) 7.8 Pickett % (Auto) 11.4 Eos % (Auto) 1.0 Baso % (Auto) 0.2 Nucleat RBC Rel Count 0.1 Neut # (Auto) 5.9 Lymph # (Auto) 0.6 L Pickett # (Auto) 0.8 Eos # (Auto) 0.1 [...] MPV Neut % (Auto) Lymph % (Auto) Pickett % (Auto) Eos % (Auto) Baso % (Auto) Nucleat RBC Rel Count Neut # (Auto) Lymph # (Auto) Pickett # (Auto) Eos # (Auto) Baso # [...] make sure that he has follow-up in [facility] within 4 weeks of discharge. (2) CAD (coronary artery disease): Assessment/Problem Details: Stable/quiescent. No ischemic complications with yesterday's urological procedure. Code(s): I25.10 - Atherosclerotic heart disease of [place] coronary artery without angina pectoris Status: Acute Plan: Medical recommendations as above. Plan Thank you very much for this kind consultation and for allowing us to participate in the care of this very pleasant patient Time spent with patient Time Spent With Patient (min): 30 Documented By: Cade Alvarez MD 08/14/22 1118 Signed By: <Electronically signed by Caed Alvarez MD> 08/14/22 1121 [facility] Work Phone: [phone]) 308-816202-17-2023 Progress note Author Hiral Interiano [facility] August 13, 2022 3:09pm Note Date/Time August 13, 2022 3:02pm [facility] [address] [place] [address] Hospitalist Progress Note Signed Patient: Victorino Smyth MR#: [id number] : 1940 Acct:[id number] Age/Sex: 82 / M Adm Date: 3 Loc: 4N Room: 3C2623-9 Type: ADM IN Attending Dr: Hiral Interiano [...] <Electronically signed by Hiral Interiano MD> 08/13/22 1501 [facility] Work Phone: [phone]) [phone] Progress note Author Alicia Perea [facility] August 13, 2022 11:29am Note Date/Time August 13, 2022 11:25am [facility] [address] [place] [address] Nephrology Progress Note Signed Patient: Victorino Smyth MR#: [id number] : 1940 Acct:[id number] Age/Sex: 82 / M Adm Date: 3 Loc: Room: [address] [place] [address] Type: ADM IN Attending Dr: Hiral Interiano MD Copies to: ~ Date of Service: 08/13/2022 Subjective Subjective Narrative: This is a 82-year-old male with a medical history of coronary artery disease s/pPCI, nephrolithiasis, CKD, diabetes mellitus, hypertension, dyslipidemia was presented to the emergency room of [facility] for generalized weakness and low urine output. On evaluation emergency room patient was found to have a life- threatening hyperkalemia with serum potassium 7 mmol/L, acute kidney injurywith elevated serum creatinine 17.8 mg/dL, metabolic acidosis serum bicarbonate 13.5 mmol/L. He was given insulin D50 calcium gluconate in the [place] emergency room. He had a CAT scan abdomen pelvis done which showed obstructive kidney stones in the right UPJ and total atrophy of the left kidney. Case was discussed with the on-call urologist Dr. Olivares and recommended patient needs to be n.p.o. for surgical intervention. He was transferred to [facility] for further care. Patient is history of CKD due to the longstanding DM, HTN and recurrent KELSEA with baseline serum creatinine 1.4 to 1.6 mg/dL. He follows in my office for his CKD care. Patient after arrival at the [facility] hada repeat labs done which showed persistent [...] visible mass Skin: No rashes or bruises STEEL RIGGER: Awake,Alert, following simple command Musculoskeletal: No joint [...] 81 Mg Tablet.Dr) 81 mg PO DAILY [facility] Stop: 08/12/23 08:59 Last Admin: 08/13/22 08:44 Dose: Not Given Atorvastatin Calcium (Atorvastatin 40 Mg Tablet) 40 mg PO HS [facility] Stop: 08/11/23 21:59 Last Admin: 08/12/22 21:07 Dose: 40 mg Dextrose (Dextrose 50% In Water 25 Gm/50 Ml Syringe) 0 gm IV-PUSH PRN PRN PRN Reason: Hypoglycemia Stop: 08/11/23 14:01 Glucose (Dextrose 40% Gel 15 Gm Tube) 0 gm PO PRN PRN PRN Reason: Hypoglycemia Stop: 08/11/23 14:01 Guaifenesin (Guaifenesin 600 Mg Tab.Er.12h) 1,200 mg PO BID [facility] Stop: 08/12/23 20:59 Last Admin: 08/13/22 08:45 [...] 50 mls @ 100 mls/hr IV Q24H [facility] Last Admin: 08/12/22 16:24 Dose: 100 mls/hr Azithromycin (Zithromax) 500 mg in 250 mls @ 250 mls/hr IV Q24H [facility] Last Admin: 08/12/22 15:06 Dose: 250 mls/hr Sodium Chloride (0.9% Sodium Chloride 1,000 Ml) 1,000 mls @ 0 mls/hr MISCELLANE.Q0M PRN PRN Reason: Dialysis Stop: 08/11/23 14:19 Last Infusion: 08/12/22 12:38 Dose: Infused Insulin Aspart (Insulin Aspart 300 Units/3 Ml Insuln.Pen) 0 [address]; Protocol Stop: 08/11/23 16:59 Last Admin: 08/13/22 08:44 Dose: Not Given Insulin Glargine (Insulin Glargine 300 Units/3 Ml Insuln.Pen) 5 units SUBCUT DAILY [facility] Stop: 08/13/23 08:59 Last Admin: 08/13/22 08:45 Dose: Not Given Metoprolol Tartrate (Metoprolol Tartrate 50 Mg Tablet) 50 mg PO BID [facility] Stop: 08/11/23 20:59 Last Admin: 08/13/22 08:45 [...] signed by Alicia Perea MD> 08/13/22 1129 [facility] Work Phone: [phone] Progress note Author Cade Alvarez [facility] August 13, 2022 9:40am Note Date/Time August 13, 2022 9:35am [facility] [address] [place] [address] Cardiology Progress Note Signed Patient: Victorino Smyth MR#: [id number] : 1940 Acct:[id number] Age/Sex: 82 / M Adm Date: 3 Loc: Room: [address] [place] [address] Type: ADM IN Attending Dr: Hiral Interiano [...] MPV Neut % (Auto) Lymph % (Auto) [place]ett % (Auto) Eos % (Auto) Baso % (Auto) Nucleat RBC Rel Count Neut # (Auto) Lymph # (Auto) [place]ett # (Auto) Eos # (Auto) Baso # [...] RNA (PCR) IU/mL N/A HCV RNA PCR copy manager log10 N/A Hepatitis C Interp 08/12/22 08/12/22 08/13/22 19:37 21:06 04:28 Corrected WBC 9.9 Uncorrected WBC Count 9.9 RBC 3.54 L Hgb 11.6 L Hct 34.2 L MCV 96.5 MCH 32.9 MCHC 34.1 RDW 13.7 Plt Count 129 L MPV 8.7 Neut % (Auto) 79.2 Lymph % (Auto) 9.6 Pickett % (Auto) 9.8 Eos % (Auto) 0.9 Baso % (Auto) 0.5 Nucleat RBC Rel Count 0.1 Neut # (Auto) 7.8 H Lymph # (Auto) 0.9 L Pickett # (Auto) 1.0 H Eos # (Auto) [...] HCV RNA (PCR) IU/mL HCV RNA PCR copy manager log10 Hepatitis C Interp 08/13/22 08/13/22 04:28 05:25 Corrected WBC Uncorrected WBC Count RBC Hgb Hct MCV MCH MCHC RDW Plt Count MPV Neut % (Auto) Lymph % (Auto) [place] % (Auto) Eos % (Auto) Baso % (Auto) Nucleat RBC Rel Count Neut # (Auto) Lymph # (Auto) Pickett # (Auto) Eos # (Auto) Baso # [...] HCV RNA (PCR) IU/mL HCV RNA PCR copy manager log10 Hepatitis C Interp A&P - Cardiology [...] Code(s): I25.10 - Atherosclerotic heart disease of [place] coronary artery without angina pectoris Status: Acute Plan: Preoperative recommendations as above. Plan Thank you very much for this kind consultation and for allowing us to participate in the care of this very pleasant patient Time spent with patient Time Spent With Patient (min): 30 Documented By: Cade Alvarez MD 08/13/22 0934 Signed By: <Electronically signed by Cade Alvarez MD> 08/13/22 0940 [facility] Work Phone: [phone]) 459-499802-16-2023 Progress note Author Hiral Interiano [facility] August 12, 2022 4:04pm Note Date/Time August 12, 2022 4:04pm [facility] [address] [place] [address] Hospitalist Progress Note Signed Patient: Victorino Smyth MR#: [id number] : 1940 Acct:[id number] Age/Sex: 82 / M Adm Date: 3 Loc: Room: [address] [place] [address] Type: ADM IN Attending Dr: Hiral Interiano [...] Insuln.Pen SUBCUT 08/11/23 16:59 Not Given TID.WM.HS [facility] Protocol Metoprolol Tartrate 50 mg 08/11/22 21:00 [...] kidney disease: Plan: Patient was transferred from [place] ER when found to have acute kidney [...] <Electronically signed by Hiral Interiano MD> 08/12/22 8375 [facility] Work Phone: [phone]) [phone] Progress note Author Alicia Perea [facility] August 12, 2022 11:29am Note Date/Time August 12, 2022 11:24am [facility] [address] [place] [address] Nephrology Progress Note Signed Patient: Victorino Smyth MR#: [id number] : 1940 Acct:[id number] Age/Sex: 82 / M Adm Date: 3 Loc: Room: [address] [place] [address] Type: ADM IN Attending Dr: Hiral Interiano MD Copies to: ~ Date of Service: 08/12/2022 Subjective Subjective Narrative: This is a 82-year-old male with a medical history of coronary artery disease s/pPCI, nephrolithiasis, CKD, diabetes mellitus, hypertension, dyslipidemia was presented to the emergency room of [facility] for generalized weakness and low urine output. On evaluation emergency room patient was found to have a life- threatening hyperkalemia with serum potassium 7 mmol/L, acute kidney injurywith elevated serum creatinine 17.8 mg/dL, metabolic acidosis serum bicarbonate 13.5 mmol/L. He was given insulin D50 calcium gluconate in the [place] emergency room. He had a CAT scan abdomen pelvis done which showed obstructive kidney stones in the right UPJ and total atrophy of the left kidney. Case was discussed with the on-call urologist Dr. Olivares and recommended patient needs to be n.p.o. for surgical intervention. He was transferred to [facility] for further care. Patient is history of CKD due to the longstanding DM, HTN and recurrent KELSEA with baseline serum creatinine 1.4 to 1.6 mg/dL. He follows in my office for his CKD care. Patient after arrival at [facility] hada repeat labs done which showed persistent [...] visible mass Skin: No rashes or bruises STEEL RIGGER: Awake,Alert, following simple command Musculoskeletal: No joint [...] 50 mls @ 100 mls/hr IV Q24H [facility] Last Infusion: 08/11/22 21:49 Dose: Infused Azithromycin (Zithromax) 500 mg in 250 mls @ 250 mls/hr IV Q24H [facility] Last Admin: 08/11/22 16:00 Dose: 250 mls/hr Sodium Chloride (0.9% Sodium Chloride 1,000 Ml) 1,000 mls @ 0 mls/hr MISCELLANE.Q0M PRN PRN Reason: Dialysis Stop: 08/11/23 14:19 Last Admin: 08/12/22 10:24 Dose: 999 mls/hr Insulin Aspart (Insulin Aspart 300 Units/3 Ml Insuln.Pen) 0 units SUBCUT TID.[facility]; Protocol Stop: 08/11/23 16:59 Last Admin: 08/12/22 08:07 Dose: Not Given Metoprolol Tartrate (Metoprolol Tartrate 50 Mg Tablet) 50 mg PO BID [facility] Stop: 08/11/23 20:59 Last Admin: 08/12/22 08:20 [...] Rehan Fuentes M.D.08/11/2022 4:10 PM Dictation Location: [place] [address] Any impression(s) listed above is documentation that [...] signed by Alicia Perea MD> 08/12/22 1129 [facility] Work Phone: 1(487) 295-935302-16-2023 Progress note Author Cade Alvarez [facility] August 12, 2022 10:04am Note Date/Time August 12, 2022 10:05am [facility] [address] [place] [address] Cardiology Progress Note Signed Patient: Victorino Smyth MR#: [id number] : 1940 Acct:[id number] Age/Sex: 82 / M Adm Date: 3 Loc: Room: [address] [place] [address] Type: ADM IN Attending Dr: Hiral Interiano [...] % (Auto) N/A Lymph % (Auto) N/A Pickett % (Auto) N/A Eos % (Auto) N/A Baso % (Auto) N/A Nucleat RBC Rel Count N/A Neut # (Auto) N/A Lymph # (Auto) N/A Pickett # (Auto) N/A Eos # (Auto) N/A [...] MPV Neut % (Auto) Lymph % (Auto) Pickett % (Auto) Eos % (Auto) Baso % (Auto) Nucleat RBC Rel Count Neut # (Auto) Lymph # (Auto) Pickett # (Auto) Eos # (Auto) Baso # [...] MPV Neut % (Auto) Lymph % (Auto) Pickett % (Auto) Eos % (Auto) Baso % (Auto) Nucleat RBC Rel Count Neut # (Auto) Lymph # (Auto) Pickett # (Auto) Eos # (Auto) Baso # [...] % (Auto) 88.0 Lymph % (Auto) 4.4 Pickett % (Auto) 7.4 Eos % (Auto) 0.0 Baso % (Auto) 0.2 Nucleat RBC Rel Count 0.0 Neut # (Auto) 11.8 H Lymph # (Auto) 0.6 L Pickett # (Auto) 1.0 H Eos # (Auto) [...] MPV Neut % (Auto) Lymph % (Auto) Pickett % (Auto) Eos % (Auto) Baso % (Auto) Nucleat RBC Rel Count Neut # (Auto) Lymph # (Auto) Pickett # (Auto) Eos # (Auto) Baso # [...] Code(s): I25.10 - Atherosclerotic heart disease of [place] coronary artery without angina pectoris Status: Acute Plan: Preoperative recommendations as above. Plan Thank you very much for this kind consultation and for allowing us to participate in the care of this very pleasant patient Time spent with patient Time Spent With Patient (min): 30 Documented By: Cade Alvarez MD 08/12/22 0959 Signed By: <Electronically signed by Cade Alvarez MD> 08/12/22 1001 [facility] Work Phone: 1(282) 662-813502-15-2023 Consult note Author Alicia Perea [facility] August 11, 2022 5:46pm Note Date/Time August 11, 2022 4:00pm [facility] [address] [place] [address] Nephrology Consult Note Signed with Nancy Patient: Victorino Smyth MR#: [id number] : 1940 Acct:[id number] Age/Sex: 82 / M Adm Date: 3 Loc: Room: [address] [place] [address] Type: ADM IN Attending Dr: Hiral Interiano [...] was presented to the emergency room of [facility] for generalized weakness and low urine output. On evaluation emergency room patient was found to have a life- threatening hyperkalemia with serum potassium 7 mmol/L, acute kidney injurywith elevated serum creatinine 17.8 mg/dL, metabolic acidosis serum bicarbonate 13.5 mmol/L. He was given insulin D50 calcium gluconate in the [place] emergency room. He had a CAT scan abdomen pelvis done which showed obstructive kidney stones in the right UPJ and total atrophy of the left kidney. Case was discussed with the on-call urologist Dr. Olivares and recommended patient needs to be n.p.o. for surgical intervention. He was transferred to [facility] for further care. Patient is history of CKD due to the longstanding DM, HTN and recurrent KELSEA with baseline serum creatinine 1.4 to 1.6 mg/dL. He follows in my office for his CKD care. Patient after arrival at the [facility] hada repeat labs done which showed persistent [...] 81 Mg Tablet.Dr) 81 mg PO DAILY [facility] Stop: 08/12/23 08:59 Atorvastatin Calcium (Atorvastatin 40 Mg Tablet) 40 mg PO HS [facility] Stop: 08/11/23 21:59 Dextrose (Dextrose 50% In [...] 50 mls @ 100 mls/hr IV Q24H [facility] Azithromycin (Zithromax) 500 mg in 250 mls @ 250 mls/hr IV Q24H [facility] Sodium Chloride (0.9% Sodium Chloride 1,000 Ml) 1,000 mls @ 0 mls/hr MISCELLANE .Q0M PRN PRN Reason: Dialysis Stop: 08/11/23 14:19 Insulin Aspart (Insulin Aspart 300 Units/3 Ml Insuln.Pen) 0 units SUBCUT TID.[facility]; Protocol Stop: 08/11/23 16:59 Metoprolol Tartrate (Metoprolol Tartrate 50 Mg Tablet) 50 mg PO BID [facility] Stop: 08/11/23 20:59 Nitroglycerin (Nitroglycerin 0.4 Mg [...] visible mass Skin: No rashes or bruises STEEL RIGGER: Awake,Alert, following simple command Musculoskeletal: No joint [...] Patient consented for dialysis. I consulted the center customer service associate for hemodialysis catheter placement which was placed [...] team. Documented By: Alicia Perea MD 08/11/22 2953 Signed By: <Electronically signed by Alicia Perea MD> 08/11/22 4693 [facility] Work Phone: [phone]) 345-950102-15-2023 Consult note Author Cade Alvarez [facility] August 11, 2022 4:47pm Note Date/Time August 11, 2022 4:36pm [facility] [address] [place] [address] Cardiology Consult Note Signed Patient: Victorino Smyth MR#: [id number] : 1940 Acct:[id number] Age/Sex: 82 / M Adm Date: 3 Loc: Room: [address] [place] [address] Type: ADM IN Attending Dr: Hiral Interiano [...] syndrome in 2017. Patient initially presented to [place] emergency department complaining of shortness of breath [...] # (Auto) N/A Lymph # (Auto) N/A Pickett # (Auto) N/A Eos # (Auto) N/A [...] nonspecific abnormality, ST segment, and/or T wave NH, pacemaker, normal Normal tracing: no change compared [...] Code(s): I25.10 - Atherosclerotic heart disease of [place] coronary artery without angina pectoris Plan Thank you very much for this kind consultation and for allowing us to participate in the care of this very pleasant patient Documented By: Cade Alvarez MD 08/11/22 1634 Signed By: <Electronically signed by Cade Alvarez MD> 08/11/22 1647 [facility] Work Phone: [phone]) 575-587902-15-2023 Consult note Author Ni Olivares [facility] August 11, 2022 3:24pm Note Date/Time August 11, 2022 3:24pm [facility] [address] [place] [address] Urology Consult Note Signed Patient: Victorino Smyth MR#: [id number] : 1940 Acct:[id number] Age/Sex: 82 / M Adm Date: 3 Loc: Room: [address] [place] [address] Type: ADM IN Attending Dr: Hiral Interiano MD Copies to: MD Ni James MD Mazhar Rahman, MD~ History of Present Illness Consult Details Consult Date: 08/11/2022 Requesting Provider: Hiral Interiano MD HPI: Mr. Smyth is an 82-year-old man transferred from the [facility]. The patient presented with some [...] the emergency room prior to transfer to [facility]. He finished breakfast at about 11 [...] % (Auto) N/A, Lymph % (Auto) N/A, Pickett % (Auto) N/A, Eos % (Auto) N/A, Baso % (Auto) N/A, Nucleat RBC Rel Count N/A, Neut # (Auto) N/A, Lymph # (Auto) N/A, Pickett # (Auto) N/A, Eos # (Auto) N/A, [...] actually worse than that noted at the [facility] at a current level of 7.4. [...] indicated. Documented By: Ni Olivares MD 08/11/22 1512 Signed By: <Electronically signed by MD Ni Olivares> 08/11/22 5490 [facility] Work Phone: 1(456) 802-215102-15-2023 History and physical note Author Hiral Interiano [facility] August 11, 2022 2:02pm Note Date/Time August 11, 2022 2:02pm [facility] [address] [place] [address] Hospitalist H&P Signed Patient: Victorino Smyth MR#: [id number] : 1940 Acct:[id number] Age/Sex: 82 / M Adm Date: 02/15/2 3 Loc: Room: 8X3621-6 Type: ADM IN Attending Dr: Hiral Interiano [...] of nephrolithiasis. Patient has been transferred from [facility] ER for acute kidney injury and [...] repeated labs available in the record from [facility]. Chest x-ray read as mild bilateral lower [...] a similar feeling when he had an NH in 2017 and prior to that in [...] negative unless noted below or in HPI [facility] Medical History (Updated 08/11/22 @ 13:59 by [...] type 2. He has been transferred from [place] ER for obstructive uropathy with worsening renal failure and hyperkalemia. I was informed the patient was given cocktail for hyperkalemia with no repeated labs available in the record. Patient arrival to floor complaining of midsternal discomfort and mentioned having similar feeling when he had an NH. Does appear tachypneic likely from metabolic acidosis. [...] signed by Hiral Interiano MD> 08/11/22 1402 [facility] Work Phone: [phone]) 163-986602-15-2023 [facility] Evaluation note* Encounter Date Diagnosis Assessment Notes Treatment Notes Treatment Clinical Notes May, Diabetes mellitus wi th chronic kidney disease (ICD-10 - E11.22) He has dav-vpncxlv-qotx ndent type 2 diabetes and currently takes [...] have advised him to adequately hydrate himself. Tamr Other 08-11-2022 NotePROCEDURE: XR KNEE LT 4V or > COMPARISON: None. HISTORY: Pain of left knee joint FINDINGS: BONES:No acute fracture or dislocation. Minimal degenerative changes. SOFT TISSUES:Negative. No visible soft tissue swelling. EFFUSION:None visible. OTHER: Vascular calcification IMPRESSION: No acute abnormality Electronically authenticated by: TYLER MONSIVAIS Date: 2022-02-04 07:23[facility]05-31-2022 Evaluation note* Encounter Date Diagnosis Assessment Notes Treatment Notes Treatment Clinical Notes October, Diabetes mellitus wi th chronic kidney disease (ICD-10 - E11.22) He has arz-edfdiyy-muayk dent type 2 diabetes and currently takes [...] have advised him to adequately hydrate himself. Tamr Other 05-02-2022 Hospital Discharge instructions Follow Up Care 10/26/2021 10:06:54 With:KADE OLIVEROS, Milton Brewer, URL Address: [address] [place] [address]- When: Unknown [facility] 05-02-2022 Hospital Discharge instructions Patient Education [...] 06/13/2006 Document Revised: 03/02/2019 Document Reviewed: 05/13/2017 [employer] Patient Education 2020 [employer]. 10/26/2021 09:44:44 Urinary Frequency, Adult Urinary Frequency, [...] to keep your urine pale yellow. ?Take ymsj-rsk-lcvwojl or prescription medicines. ?Eat foods that are high in fiber, such as beans, whole grains, and fresh fruits and vegetables. ?Limit foods that are high in fat and processed sugars, such as fried or sweet foods. General instructions Take pkup-zwa-zqhhkcc and prescription medicines only as told by [...] the muscles that help control urination. Take btnj-dpp-pwhnifp and prescription medicines only as told by your health care provider. Contact a health care provider if your symptoms do not improve or get worse. This information is not intended to replace advice given to you by your health care provider. Make sure you discuss any questions you have with your health care provider. Document Released: 04/09/2010 Document Revised: 12/21/2018 Document Reviewed: 12/21/2018 [employer] Patient Education 2020 [employer]. 10/26/2021 09:44:41 Kidney Stones, Srcn-ua-Dcgt Kidney Stones Kidney stones are rock-like masses [...] Follow these instructions at home: Medicines Take gnwy-kng-zlqbexf and prescription medicines only as told by [...] 11/29/2008 Document Revised: 10/30/2019 Document Reviewed: 10/30/2019 [employer] Patient Education 2019 [employer]. Follow Up Care 02/23/2021 14:09:11 With:KADE OLIVEROS, Milton Brewer, SUEL Address: [facility] [address], [place] [address]- When:10/26/2022 [facility] 11-30-2021 Evaluation note* Encounter Date Diagnosis Assessment Notes Treatment Notes Treatment Clinical Notes Apr, Diabetes mellitus wi th chronic kidney disease (ICD-10 - E11.22) He has sal-abbanyr-kjwjg dent type 2 diabetes and currently takes [...] have advised him to adequately hydrate himself. Tamr Other Evaluation + Plan note Future Appointments Appointment Date:10/29/2022 08:45:00 AM Scheduled Provider:Milton BRAUN MD Location:[facility] Appointment Type:URO Office Visit [facility] evaluation + Plan note Future Appointments Appointment Date:09/14/2022 07:30:00 AM Scheduled Provider: Location:[facility] Appointment Type:Surgical PAT FT Appointment Date:10/07/2022 12:00:00 PM Scheduled Provider: Location:[facility] Appointment Type:Surgery FT Appointment Date:10/29/2022 08:45:00 AM Scheduled Provider:Milton BRAUN MD Location:[facility] Appointment Type:URO Office Visit [facility] Evaluation + Plan note Future Appointments Appointment Date:11/18/2022 10:30:00 AM Scheduled Provider: Location:[facility] Appointment Type:Surgical PAT FT Appointment Date:12/02/2022 11:45:00 AM Scheduled Provider: Location:[facility] Appointment Type:Surgery FT [facility] evaluation + Plan note Future Appointments Appointment Date:06/12/2024 11:00:00 AM Scheduled Provider:Ni OLIVARES MD Location:[facility] Appointment Type:URO Office Visit Future Scheduled Tests Laboratory* Total Protein 24 Hour Urine 02/14/23 [facility] Evaluation note* Diagnosis Onset Date Resolution Status Acute kidney injury superimp osed on chronic kidney disease acute Acute kidney insufficiency a cute CAD (coronary artery disease) acute CKD (chronic kidney disease) stage 3, GFR 30-59 ml/min acute Elevated PSA acute Hydronephrosis with ureteral calculus acute Hyperkalemia acute [id number] acute Left renal atrophy acute Metabolic acidosis acute Obstructive nephropathy acut e Preoperative cardiovascular examination acute Right ureteral stone acute 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 Diabetes chronic [facility] Work Phone: Evaluation noteNo assessment information available [facility] Work Phone: Hisuayg general Narrative - Reported* Type Description Date Medical History DIABETES MELLITUS Medical History CORONARY ARTERY DISEASE Medical History MORBID OSESITY Surgical History HERNEA LOWER RIGHT ABDOMINAL Surgical History HEART ATTACK WITH STENT PLACEME NT IN THE LAD Surgical History KIDNEY STENTS X 2 Surgical History PROSTRATE BIO PAD Surgical History KIDNEY STENTS X2 Surgical History KIDNEY STONE REMOVAL Hospitalization History SEE ABOVE Tamr Other Hisapsy general Narrative - Reported* Type Description Date [...] KIDNEY STONE REMOVAL Hospitalization History SEE ABOVE Tamr Other History general Narrative - Reported* Type [...] KIDNEY STONE REMOVAL Hospitalization History SEE ABOVE Tamr Other Hisvshq general Narrative - Reported* Type Description Date [...] History KELSEA, HYPERKALEMIA, METAB OLIC ACIDOSIS 08/11/2022 Tamr Other Hospital course Narrative No data available for this section [facility] Hospital Discharge instructions Additional Instructions Follow-up with your Primary Supervisor [employer] in 4 weeks. Avoid NSAIDs for pain control. Call [facility] Scheduling on Tuesday at [phone] to arrange a follow up CT scan regarding lung nodule in 4 weeks. Maintain occlussive dressing to HD catheter removal site for 48 hours - return to the Emergency Room for oozing or drainage from catheter exit site, noticeable swelling or itching around neck, shortness of breath, [facility] Work Phone: Progress note No data available for this section [facility] Chief Complaint and Reason for Visit Chief Complaint ACUTE RENAL FAILURE Reason for Visit Acute kidney injury superimposed on chronic kidney disease Acute kidney insufficiency CAD (coronary artery disease) CKD (chronic kidney disease) stage 3, GFR 30-59 ml/min Elevated PSA Hydronephrosis with ureteral calculus Hyperkalemia [id number] Left renal atrophy Metabolic acidosis Obstructive nephropathy [...] Kiser MD Other Provider Active Jen Tamayo [facility]- Other Provider Active Aaliyah Mitchell [...] section and content) DATE CREATED AUTHOR 10/03/2022 [facility] DATE CREATED AUTHOR AUTHOR'S ORGANIZ ATION 12/07/2022 Coreen bran DATE CREATED AUTHOR AUTHOR'S ORGANIZ ATION 01/27/2023 [facility] DATE CREATED AUTHOR AUTHOR'S ORGANIZ ATION 07/05/2023 Gerardo [facility] DATE CREATED AUTHOR AUTHOR'S ORGANIZ ATION 07/07/2023 [facility] Goals (unrecognized section and content) Goals [...] BE BASED ON THE PRIMARY CLINICAL RECORDS. [employer] provides no warranty or guarantee of the accuracy or completeness of information in this document.
--- NOTE | 2023-07-19 16:22 | P.GSCN_ITS ---
History of Present Illness Consult details Consult date: 07/19/23 Reason for consult: abdominal pain Narrative: 82 yo M w/ 3 day Hx of abd pain. Presented to ER and CT scan noted acute appendicitis with an appendicolith and some fluid. Pt has Hx of cardiac stents a nd is on ASA. no other anti platelets or anticoags. Pt admits to Hx of R ingiunal hernia repair open and 2 seperate procedures on his umbilicus for a hernia with mesh placed. Pt understands given the 3 days of abd pain and fluid it may be safer to just place a drain and do an interval appendectomy. Will proceed with laparoscopic appendectomy, consent obtained and all questions answered. PFSH [facility] Medical History (Updated 07/19/23 @ 16:31 by Shaquille Alvarado DO) Thyroid condition ?E07.9 - Disorder of thyroid, unspecified (ICD-10) Diabetes ?E11.9 - Type 2 diabetes mellitus without complications (ICD-10) Hypertension ?I10 - Essential (primary) hypertension (ICD-10) Surgical History (Updated 07/19/23 @ 16:19 by Delaney Lanier) H/O hernia repair ?Z98.890 - Other specified postprocedural states (ICD-10) ?Z87.19 - Personal history of other diseases of the digestive system (ICD-10) H/O heart artery stent ?Z95.5 - Presence of coronary angioplasty implant and graft (ICD-10) Social History Smoking status: Former smoker Highest level of school completed/degree received: some college, no degree Meds Home Medications and Allergies Home Medications Medication Instructions Recorded Confirmed Type albuterol sulfate 90 mcg/actuation 1 inh inhalation Q6H PRN shortness 07/19/23 07/19/23 History aerosol inhaler of breath or wheezing amlodipine 10 mg tablet 10 mg PO DAILY 07/19/23 07/19/23 History aspirin 81 mg capsule 81 mg PO DAILY 07/19/23 07/19/23 History atorvastatin 80 mg tablet 80 mg PO DAILY 07/19/23 07/19/23 History glimepiride 4 mg tablet 4 mg PO BID 07/19/23 07/19/23 History srizigzflgy-btdwqheqgq-pzl-calcium-155herb tab PO 07/19/23 History 375 mg-150 mg-125 mg tablet isosorbide mononitrate 60 mg 120 mg PO DAILY 07/19/23 07/19/23 History tablet,extended release 24 hr ketoconazole 2 % topical cream 1 applic topical DAILY 07/19/23 07/19/23 History levothyroxine 50 mcg tablet 50 mcg PO DAILY 07/19/23 07/19/23 History liothyronine 5 mcg tablet 5 mcg PO DAILY 07/19/23 07/19/23 History lisinopril 20 mg tablet 20 mg PO DAILY 07/19/23 07/19/23 History metoprolol tartrate 50 mg tablet 50 mg PO Q12H 07/19/23 07/19/23 History nitroglycerin 0.4 mg sublingual 0.4 mg sublingual Q5M PRN chest 07/19/23 07/19/23 History tablet pain pioglitazone 15 mg tablet 15 mg PO DAILY 07/19/23 07/19/23 History ranolazine 500 mg tablet,extended 500 mg PO Q12H 07/19/23 07/19/23 History release,12 hr tiotropium bromide 2.5 2 inh inhalation Q24H 07/19/23 07/19/23 History mcg/actuation mist for inhalation (Spiriva Respimat) Allergies Allergy/AdvReac Type Severity Reaction Status Date / Time ciprofloxacin [From Cipro] AdvReac Intermediate Verified 07/19/23 13:49 Penicillins AdvReac Intermediate Verified 07/19/23 13:49 Exam Constitutional Vital Signs, click to edit/add: Last Vital Signs Temp 98.5 F 07/19/23 15:43 Pulse 99 H 07/19/23 15:43 Resp 20 07/19/23 15:43 BP 157/68 H 07/19/23 15:43 Pulse Ox 93 L 07/19/23 15:43 O2 Del Method Room Air 07/19/23 15:43 Common normals: no apparent distress, oriented x3 and alert Nutritional appearance: obese HENMT Common normals: normocephalic Respiratory Common normals: normal respiratory effort Cardio Common normals: regular rate GI Common normals: soft to palpation and no masses Palpation: soft and guarding in the RLQ Other: RLQ tenderness, obese, scars consistent with history Extremity General: normal exam except as noted Neuro Common normals: oriented x3 Psych Common normals: thought process normal Results Labs Labs: Abnormal lab results 07/19/23 07/19/23 Range/Units 13:49 14:30 POC Glucose 68 L 153 H (74-106) mg/dL All other labs normal. Assessment and Plan Assessment and Plan (1) Acute appendicitis: Qualifiers: Acute appendicitis type: with localized peritonitis Appendicitis perforation presence: unspecified whether perforation present Appendicitis abscess presence: unspecified whether abscess present Qualified Code(s): K35.30 - Acute appendicitis with localized peritonitis, without perforation or gangrene Plan Acute appendicitis 1. proceed with laparoscopic appendectomy, consent obtained and all questions answered. Pt understands possibility of need for drain placement and interval appendectomy. 2. IV abx administered in ER 3. Post op recs to follow, admission per IM/family med
[2023-07-19 16:32] LABS: Glucometer 58 mg/dL (74-106)
--- NOTE | 2023-07-19 16:33 | PM.GSPRC ---
Date of procedure: 07/19/23 Indications for Procedure: acute appendicitis Pre-op diagnosis: acute appendicitis Post-op diagnosis: other (Acute perforated appendicitis ) Procedure: diagnostic laparoscopy with aspiration of fluid and placement of RLQ drain Findings: acute perforated appendicitis with abscess/ opaque fluid present at time of entry Anesthesia: NICHELLEA Surgeon: Shaquille Alvarado Procedure Summary: Consent obtained and RN witnessed for laparoscopic appendectomy possible drain placement. All questions answered. Patient taken to OR and placed on operating table in supine position. Pre-op abx were given. Anesthesia was induced per anesthesia team. OR time out was performed. Abdomen was prepped and draped in normal fashion. Local anesthetic was used prior to incisions. A small left mid abdominal incision was made for a 5mm port and an optiview technique was used to gain access into the abdominal cavity. The abd was insufflated and inspected. No injuries noted. The RLQ did have opaque white fluid consistent with wound class 4, abscess fluid present at time of surgery. A second 5mm port was placed in the suprapubic region under direct visualization. An atraumatic grasper was used to inspect and attempt to mobilize the cecum. The tissues were extremely friable as the patient had been having abdominal pain for 3 days. The fluid was aspirated out. The patient was placed in head down and right side up to assist with identification of the appendix. The tissues were to enflamed and adherent to the abdominal wall to safely proceed so decision was made to aspirate out all the opaque fluid and place a 15mm round drain in through the suprapubic port to rest in the RLQ. The abdomen was inspected and noted to be hemostatic. The drain was secured to the skin with 3-0 silk. The camera was removed and pneumo evacuated from that abdominal cavity. The L mid 5mm port site was closed with a 4-0 monocryl followed by skin glue. All instrument, needle and sponge count were reported as correct at the end of the procedure. Patient transferred to PACU. Plan for continued IV abx, NPO and serial abdominal exams. 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
[2023-07-19] MEDS: BUPIVACAINE HCL 0.5% PF 50 MG/10 ML VIAL 20 ML INJ (17:10)
[2023-07-19 17:37] LABS: Glucometer 147 mg/dL (74-106)
--- NOTE | 2023-07-19 17:56 | PM.PN ---
Exam Constitutional Vital Signs, click to edit/add: Last Vital Signs Temp 99 F 07/19/23 17:38 Pulse 106 H 07/19/23 17:38 Resp 24 07/19/23 17:38 BP 162/80 H 07/19/23 17:38 Pulse Ox 96 07/19/23 17:38 O2 Del Method Room Air 07/19/23 17:38 Progress Note: A&P Assessment and Plan (1) Acute appendicitis: Qualifiers: Acute appendicitis type: with localized peritonitis Appendicitis abscess presence: unspecified whether abscess present Appendicitis perforation presence: unspecified whether perforation present Qualified Code(s): K35.30 - Acute appendicitis with localized peritonitis, without perforation or gangrene Plan Patient is s/p diagnostic laparoscopy with aspiration of fluid and RLQ drain placement. Pt will need an interval appendectomy in approximately 6 weeks once recovered. Pt is to remain on IV abx and will be appropriate for discharge once he is afebrile. no leukocytosis, having flatus/BM, tolerating diet and pain controlled. Would remain NPO until has flatus and then ok to proceed to clear liquid diet. Ok for sips with meds. Ok to resume home meds except aspirin. Ok for ortiz to be discontinued in am or per the discretion of the primary team. Urinary Catheter Management Urinary Catheter Management Urethral: Cath placed during this visit: yes Urethral indwelling: Yes Reason for continuing: measure accurate output Insertion date: 07/19/23
[2023-07-19] MEDS: ALBUTEROL SULFATE 2.5 MG/3 ML VIAL NEB IH (18:05)
[2023-07-19] MEDS: LACTATED RINGER'S SOLUTION 1,000 ML 100 ML IV (18:36)
[2023-07-19 20:15] LABS: Glucometer 69 mg/dL (74-106)
[2023-07-19] MEDS: METOPROLOL TARTRATE 50 MG TABLET PO (21:18)
[2023-07-19] MEDS: RANOLAZINE 500 MG TAB.ER.12H PO (21:18)
[2023-07-19 21:22] LABS: Glucometer 37 mg/dL (74-106)
[2023-07-19] MEDS: DEXTROSE 5%-LACTATED RINGERS 1,000 ML 100 ML IV (21:35)
[2023-07-19 21:36] LABS: Glucometer 120 mg/dL (74-106)
[2023-07-19] MEDS: IPRATROPIUM BROMIDE 0.5 MG/2.5 ML VIAL.NEB IH (21:46)
[2023-07-19 23:05] LABS: Glucometer 60 mg/dL (74-106)
[2023-07-19] MEDS: ACETAMINOPHEN 500 MG TABLET 1000 MG PO (23:22)
[2023-07-19] MEDS: DEXTROSE 5%-LACTATED RINGERS 1,000 ML 125 ML IV (23:22)
[2023-07-20] VITALS (69 sets, daily range): BP systolic 105–172; BP diastolic 52–75; PULSE 90–120; RESP 13–32; TEMP 36.9–39.2; O2SAT 84–96
[2023-07-20 00:18] LABS: Glucometer 101 mg/dL (74-106)
--- NOTE | 2023-07-20 00:51 | PC.NURSE ---
Patient c/o tasting bile in back of throat denies burping or passing flatus
[2023-07-20 01:12] LABS: Glucometer 74 mg/dL (74-106)
[2023-07-20 01:12] LABS: Basophils Percent Auto 0.2 % (0.2-2.0); Hematocrit 34.5 % (42.0-54.0); Hemoglobin 11.3 g/dL (14.0-18.0); Immature Granulocytes Abs Auto 0.05 10^3/uL (0.00-0.03); Immature Granulocytes Pct Auto 0.5 % (0.0-0.5); Lymphocytes Absolute Auto 0.4 10^3/uL (1.2-3.8); Lymphocytes Percent Auto 3.7 % (20.5-60.0); Mean Corpuscular HGB Conc 32.8 g/dL (29.9-35.2); Mean Corpuscular Hemoglobin 32.5 pg (25.9-34.0); Mean Corpuscular Volume 99.1 fL (80.0-94.0); Mean Platelet Volume 10.8 fL (9.5-13.5); Monocytes Absolute Auto 0.9 10^3/uL (0.3-0.8); Monocytes Percent Auto 8.8 % (1.7-12.0); Neutrophils Percent Auto 86.8 % (43.0-75.0); Platelet Count 166 10^3/uL (150-450); Red Blood Count 3.48 10^6/uL (4.70-6.10); Red Cell Distribution Width 13.6 % (11.0-15.0); White Blood Count 10.3 10^3/uL (4.0-11.0)
[2023-07-20] MEDS: KETOROLAC TROMETHAMINE 30 MG/ML VIAL 15 MG IVP (01:14)
[2023-07-20 01:17] LABS: Anion Gap 15.3; Calcium 8.5 mg/dL (8.5-10.1); Carbon Dioxide 21.4 mmol/L (21.0-32.0); Chloride 103 mmol/L (98-107); Estimated GFR (African America 26 (>=60); Estimated GFR (Non-African Ame 22 (>=60); Glucose 78 mg/dL (74-106); Potassium 3.7 mmol/L (3.5-5.1); Sodium 136 mmol/L (136-145)
[2023-07-20] MEDS: DEXTROSE 5%-LACTATED RINGERS 1,000 ML 150 ML IV ×3 (01:17→13:36)
[2023-07-20 01:23] LABS: PCO2 VBG 36.1 mmHg (40.0-52.0); pH VBG 7.396 (7.330-7.430)
[2023-07-20 01:26] LABS: Lactate/Lactic Acid 1.1 mmol/L (0.4-2.0)
[2023-07-20 02:59] LABS: Glucometer 72 mg/dL (74-106)
[2023-07-20] MEDS: IPRATROPIUM BROMIDE 0.5 MG/2.5 ML VIAL.NEB IH (04:21)
[2023-07-20 05:36] LABS: Glucometer 68 mg/dL (74-106)
[2023-07-20] MEDS: LEVOTHYROXINE SODIUM 25 MCG TABLET 50 MCG PO (05:40)
[2023-07-20] MEDS: LIOTHYRONINE SODIUM 5 MCG TABLET PO (05:40)
[2023-07-20 06:12] LABS: Basophils Percent Auto 0.2 % (0.2-2.0); Eosinophils Percent Auto 0.1 % (0.9-7.0); Hematocrit 33.2 % (42.0-54.0); Hemoglobin 10.7 g/dL (14.0-18.0); Immature Granulocytes Abs Auto 0.05 10^3/uL (0.00-0.03); Immature Granulocytes Pct Auto 0.5 % (0.0-0.5); Lymphocytes Absolute Auto 0.5 10^3/uL (1.2-3.8); Lymphocytes Percent Auto 4.8 % (20.5-60.0); Mean Corpuscular HGB Conc 32.2 g/dL (29.9-35.2); Mean Corpuscular Hemoglobin 32.3 pg (25.9-34.0); Mean Corpuscular Volume 100.3 fL (80.0-94.0); Mean Platelet Volume 10.8 fL (9.5-13.5); Monocytes Absolute Auto 0.8 10^3/uL (0.3-0.8); Monocytes Percent Auto 7.8 % (1.7-12.0); Neutrophils Absolute Auto 8.8 10^3/uL (1.4-6.5); Neutrophils Percent Auto 86.6 % (43.0-75.0); Platelet Count 163 10^3/uL (150-450); Red Blood Count 3.31 10^6/uL (4.70-6.10); Red Cell Distribution Width 13.6 % (11.0-15.0); White Blood Count 10.2 10^3/uL (4.0-11.0)
[2023-07-20 06:15] LABS: Anion Gap 11.7; BUN Creatinine Ratio 21.8; Calcium 8.5 mg/dL (8.5-10.1); Carbon Dioxide 24.1 mmol/L (21.0-32.0); Chloride 106 mmol/L (98-107); Estimated GFR (African America 25 (>=60); Estimated GFR (Non-African Ame 21 (>=60); Glucose 65 mg/dL (74-106); Potassium 3.8 mmol/L (3.5-5.1); Sodium 138 mmol/L (136-145)
--- NOTE | 2023-07-20 06:44 | XR_ITS ---
[address] [address] Patient Name: GLADYS SMYTH MRN: [id number] date: 1940 Sex: M Assigned Patient Location: [place] Current Patient Location: [place] Accession/Order Number: [id number] Exam Date: 07/20/2023 06:50 Report Date: 07/20/2023 07:06 At the request of: JENNIFER DRISCOLL Procedure: XR abdomen 1V EXAMINATION: XR abdomen 1V HISTORY: NG placement, distention of abd. increase nausea COMPARISON: 07/19/2023 FINDINGS: BOWEL GAS PATTERN: Gaseous distention of small bowel loops measuring up to 4.3 cm. Gaseous distention of the stomach. Enteric tube tip projects over the gastric fundus, the last sidehole is in the esophagus. Catheter projects over the pelvis, nonspecific CALCIFICATIONS: None significant. OTHER: Degenerative spondylosis. No abnormal gaseous collections. XR/XR abdomen 1V IMPRESSION: Enteric tube tip in the stomach with the last sidehole in esophagus. Advancement 8 cm recommended Increased distention of small bowel loops suggesting an ileus Electronically authenticated by: TYLER MONSIVAIS Date: 07/20/2023 07:06
[2023-07-20 07:07] LABS: Alanine Aminotransferase 87 U/L (16-63); Albumin Globulin Ratio 0.5; Albumin Level 2.2 g/dL (3.4-5.0); Alkaline Phosphatase 67 U/L (46-116); Aspartate Amino Transferase 99 U/L (15-37); Bilirubin Direct 0.2 mg/dL (0.0-0.2); Bilirubin Total 0.6 mg/dL (0.2-1.0); Globulin 4.1 g/dL; Total Protein 6.3 g/dL (6.4-8.2)
[2023-07-20 07:15] LABS: Glucometer 67 mg/dL (74-106)
[2023-07-20] MEDS: DEXTROSE 50 %-WATER 25 GM/50 ML SYRINGE IV ×2 (07:27→11:03)
--- NOTE | 2023-07-20 07:37 | P.HP_ITS ---
H&P: HPI History of Present Illness Chief complaint: ABD PAIN ACUTE APPENDICITIS Narrative: Patient presented to the office with abdominal pain and weakness. Sent over to the hospital for CT scan and lab work. CT scan revealed acute appendicitis. Blood work revealed acute kidney injury with severe hypoglycemia and patient was recommended to go to the emergency room for further evaluation. Patient was admitted for acute appendicitis and had appendectomy completed yesterday. Issue this morning is severe hypoglycemia despite intensive glucose administration. This is likely related to his home medications. Although sepsis cannot be ruled out as a cause Review of Systems ROS Constitutional Denies: fever or chills Cardiovascular Denies: chest pain, palpitations or edema Respiratory Denies: shortness of breath Gastrointestinal Reports: abdominal pain, nausea, heartburn and bloating PFSH PFSH Medical History (Updated 07/19/23 @ 18:04 by Shaquille Alvarado DO) Thyroid condition ?E07.9 - Disorder of thyroid, unspecified (ICD-10) Diabetes ?E11.9 - Type 2 diabetes mellitus without complications (ICD-10) Hypertension ?I10 - Essential (primary) hypertension (ICD-10) Surgical History (Updated 07/19/23 @ 16:19 by Delaney Lanier) H/O hernia repair ?Z98.890 - Other specified postprocedural states (ICD-10) ?Z87.19 - Personal history of other diseases of the digestive system (ICD-10) H/O heart artery stent ?Z95.5 - Presence of coronary angioplasty implant and graft (ICD-10) Social History Smoking status: Former smoker Highest level of school completed/degree received: some college, no degree Meds Home Medications and Allergies Home Medications Medication Instructions Recorded Confirmed Type albuterol sulfate 90 mcg/actuation 1 inh inhalation Q6H PRN shortness 07/19/23 07/19/23 History aerosol inhaler of breath or wheezing amlodipine 10 mg tablet 10 mg PO DAILY 07/19/23 07/19/23 History aspirin 81 mg capsule 81 mg PO DAILY 07/19/23 07/19/23 History atorvastatin 80 mg tablet 80 mg PO DAILY 07/19/23 07/19/23 History glimepiride 4 mg tablet 4 mg PO BID 07/19/23 07/19/23 History maynkcpyjvo-plkurshhxr-ues-calcium-155herb tab PO 07/19/23 History 375 mg-150 mg-125 mg tablet isosorbide mononitrate 60 mg 120 mg PO DAILY 07/19/23 07/19/23 History tablet,extended release 24 hr ketoconazole 2 % topical cream 1 applic topical DAILY 07/19/23 07/19/23 History levothyroxine 50 mcg tablet 50 mcg PO DAILY 07/19/23 07/19/23 History liothyronine 5 mcg tablet 5 mcg PO DAILY 07/19/23 07/19/23 History lisinopril 20 mg tablet 20 mg PO DAILY 07/19/23 07/19/23 History metoprolol tartrate 50 mg tablet 50 mg PO Q12H 07/19/23 07/19/23 History nitroglycerin 0.4 mg sublingual 0.4 mg sublingual Q5M PRN chest 07/19/23 07/19/23 History tablet pain pioglitazone 15 mg tablet 15 mg PO DAILY 07/19/23 07/19/23 History ranolazine 500 mg tablet,extended 500 mg PO Q12H 07/19/23 07/19/23 History release,12 hr tiotropium bromide 2.5 2 inh inhalation Q24H 07/19/23 07/19/23 History mcg/actuation mist for inhalation (Spiriva Respimat) Allergies Allergy/AdvReac Type Severity Reaction Status Date / Time ciprofloxacin [From Cipro] Allergy Intermediate Verified 07/20/23 08:12 Penicillins Allergy Intermediate Verified 07/20/23 08:12 Exam Constitutional Vital Signs, click to edit/add: Last Vital Signs Temp 98.8 F 07/20/23 05:47 Pulse 90 07/20/23 05:47 Resp 18 07/20/23 05:47 BP 105/64 07/20/23 05:47 Pulse Ox 95 07/20/23 04:25 O2 Del Method Nasal Cannula 07/20/23 05:47 O2 Flow Rate 2 07/20/23 05:47 Documenting provider has reviewed patient's vital signs: yes Common normals: apparent distress (Mild painful distress) HENMT Common normals: oral mucous membranes not moist Chest Common normals: inspection of chest normal Respiratory Common normals: normal respiratory effort, no retractions and no use of accessory muscles Cardio Common normals: regular rate and regular rhythm GI Common normals: negative for Normal to inspection, nondistended, normoactive bowel sounds present (Abdomen somewhat distended, will defer exam to surgery) Extremity Common normals: normal to inspection (No edema) Results Labs Labs: Short CBC 07/20/23 07/20/23 Range/Units 00:56 05:56 WBC 10.3 10.2 (4.0-11.0) 10^3/uL Hgb 11.3 L 10.7 L (14.0-18.0) g/dL Hct 34.5 L 33.2 L (42.0-54.0) % Plt Count 166 163 (150-450) 10^3/uL BMP 07/20/23 07/20/23 00:56 05:56 Sodium 136 138 Potassium 3.7 3.8 Chloride 103 106 Carbon Dioxide 21.4 24.1 BUN 65.0 H 64.0 H Creatinine 2.82 H 2.94 H Glucose 78 65 L Calcium 8.5 8.5 Liver Function 07/20/23 Range/Units 05:55 Total Bilirubin 0.6 (0.2-1.0) mg/dL Direct Bilirubin 0.2 (0.0-0.2) mg/dL AST 99 H (15-37) U/L ALT 87 H (16-63) U/L Alkaline Phosphatase 67 (46-116) U/L Albumin 2.2 L (3.4-5.0) g/dL ABG ABG results: 07/20/23 01:11 VBG pH 7.396 VBG pCO2 36.1 L Assessment and Plan Assessment and Plan (1) Acute appendicitis: Qualifiers: Acute appendicitis type: with localized peritonitis Appendicitis abscess presence: unspecified whether abscess present Appendicitis perforation presence: unspecified whether perforation present Qualified Code(s): K35.30 - Acute appendicitis with localized peritonitis, without perforation or gangrene Plan Sinus tachycardia, respiratory distress, hypoxia, severe hypoglycemia, leukocytosis, elevated liver function test, fever secondary to acute appendicitis resulting in sepsis-status post surgery yesterday. This morning acute abdominal series reveals ileus. NG tube in place Severe hypoglycemia-has received 3 boluses of [id number] on D5 LR, increased rate to 200 for the next 5 hours. Need to watch fluid status closely. Leukocytosis-secondary to above-resolved Acute hepatitis likely secondary to passive congestion secondary to the above - improved Mild hypoxia-likely secondary to abdominal bloating-added OPEP. Consider aerosols. Iron deficiency anemia-stable Acute kidney injury on top of chronic kidney disease stage III-somewhat worse this morning. Continue fluid resuscitation likely complication of the above. Will repeat Chem-8 at noon Coronary artery disease-we will hold medications but use Nitropaste. No chest pain Hypertension by history-we will hold off on oral medications with NG tube in place Hypothyroidism-holding medications Urinary Catheter Management Urinary Catheter Management Urethral: Cath placed during this visit: yes Urethral indwelling: Yes Reason for continuing: not indwelling catheter Insertion date: 07/19/23
[2023-07-20] MEDS: PANTOPRAZOLE SODIUM 40 MG VIAL IV (07:38)
[2023-07-20] MEDS: DEXTROSE 5%-LACTATED RINGERS 1,000 ML 200 ML IV (07:44)
--- NOTE | 2023-07-20 08:14 | PC.NURSE ---
NG tube advanced per Dr Danielson and xray results. Do to resistance we were only able to advance 5cm. Tube taped and in place. Suction on and successful. Patient denies any pain or discomfort.
[2023-07-20] MEDS: KETOCONAZOLE 15 APPLIC TUBE TOPICAL (09:36)
--- NOTE | 2023-07-20 09:36 | PC.NURSE ---
Girth measurement down to 56cm. Denies pain or discomfort at this time
[2023-07-20 11:56] LABS: Basophils Percent Auto 0.1 % (0.2-2.0); Eosinophils Percent Auto 0.5 % (0.9-7.0); Hemoglobin 10.8 g/dL (14.0-18.0); Immature Granulocytes Abs Auto 0.03 10^3/uL (0.00-0.03); Immature Granulocytes Pct Auto 0.3 % (0.0-0.5); Lymphocytes Absolute Auto 0.4 10^3/uL (1.2-3.8); Lymphocytes Percent Auto 4.5 % (20.5-60.0); Mean Corpuscular HGB Conc 32.7 g/dL (29.9-35.2); Mean Corpuscular Hemoglobin 32.8 pg (25.9-34.0); Mean Corpuscular Volume 100.3 fL (80.0-94.0); Mean Platelet Volume 10.8 fL (9.5-13.5); Monocytes Absolute Auto 0.7 10^3/uL (0.3-0.8); Monocytes Percent Auto 7.5 % (1.7-12.0); Neutrophils Absolute Auto 7.5 10^3/uL (1.4-6.5); Neutrophils Percent Auto 87.1 % (43.0-75.0); Platelet Count 156 10^3/uL (150-450); Red Blood Count 3.29 10^6/uL (4.70-6.10); Red Cell Distribution Width 13.8 % (11.0-15.0); White Blood Count 8.6 10^3/uL (4.0-11.0)
[2023-07-20 12:01] LABS: Anion Gap 12.9; BUN Creatinine Ratio 20.8; Calcium 8.3 mg/dL (8.5-10.1); Chloride 106 mmol/L (98-107); Estimated GFR (African America 28 (>=60); Estimated GFR (Non-African Ame 23 (>=60); Glucose 134 mg/dL (74-106); Potassium 3.9 mmol/L (3.5-5.1); Sodium 140 mmol/L (136-145)
[2023-07-20 12:09] LABS: Lactate/Lactic Acid 1.7 mmol/L (0.4-2.0)
--- NOTE | 2023-07-20 12:11 | P.GSPN_ITS ---
<Statement entered by Shaquille Alvarado DO - 07/20/23 12:24> This documentation has been reviewed and approved. Progress Note: A&P Assessment and Plan (1) Acute appendicitis: Qualifiers: Acute appendicitis type: with localized peritonitis Appendicitis abscess presence: with abscess Appendicitis perforation presence: with perforation Appendicitis gangrene presence: unspecified whether gangrene present Qualified Code(s): K35.33 - Acute appendicitis with perforation, localized peritonitis, and gangrene, with abscess Plan 1. Cont NGT to suction, ok to clamp for PO meds including dextrose/juice given labile blood sugars, monitor strict I/Os 2. Awaiting return of flatus/BM, encourage ambulation and sitting in chair, monitor ADRIANO drain output 3. Cont IV abx, can switch to less renal caustic per pharmacy/ primary if needed given KELSEA, ok for discontinuing ortiz from gen surg stance. Once pt is tolerating PO intake can switch to PO abx for a total course of 10-14 days 4. Recommend PT/OT evaluation to help with mobility and activity while in hospital 5. Criteria for d/c is pt will need to be afebrile, having bowel function and tolerating PO intake, pain controlled and normal WBC 6. Plan for repeat CT scan in 5-6 weeks with discussion of possible interval appendectomy if warranted based on CT findings 7. ADRIANO drain can be discontinued as out pt per local PCP or general surgeon once output is less then 30ml per day Subjective Subjective Interval history: Patient states he is feeling okay today. Still having some abdominal pain but it has improved. He states his nausea has been controlled and improved since NG tube placement. He denies any flatus or bowel movements yet. He otherwise has no acute complaints at motivated to get up and start ambulating. Discussed with him the goals for moving forward are having regular flatus and/or bowel movements, afebrile, tolerating diet, normal white blood cell count, and minimal to no pain. Once he has met those criteria he will be appropriate for discharge. was at bedside and updated her as well. Exam Constitutional Vital Signs, click to edit/add: Last Vital Signs Temp 99.2 F 07/20/23 11:13 Pulse 100 H 07/20/23 11:47 Resp 16 07/20/23 11:13 BP 151/75 H 07/20/23 11:13 Pulse Ox 93 L 07/20/23 11:47 O2 Del Method Room Air 07/20/23 11:47 O2 Flow Rate 2 07/20/23 05:47 Common normals: no apparent distress and oriented x3 Respiratory Common normals: normal respiratory effort Cardio Rate: tachycardic GI Common normals: soft to palpation and non-tender Other: Slightly distended, but nontender to palpation. ADRIANO drain intact with good suction and serosanguineous fluid noted in drain. 35ml out since placement Extremity Common normals: normal to inspection Psych Common normals: mental status grossly normal Appearance: grossly normal Urinary Catheter Management Urinary Catheter Management Urethral: Cath placed during this visit: yes Urethral indwelling: Yes Reason for continuing: measure accurate output Insertion date: 07/19/23
[2023-07-20] MEDS: DEXAMETHASONE SOD PHOS 4 MG/ML VIAL 10 MG IV (12:37)
[2023-07-20] MEDS: GLUCAGON 1 MG/ML VIAL IV (12:38)
[2023-07-20 13:16] LABS: Glucometer 137 mg/dL (74-106)
[2023-07-20] MEDS: CLINDAMYCIN PHOSPHATE/D5W 600 MG/50 ML PIGGYBACK 100 MG IV ×2 (13:43→19:40)
[2023-07-20 14:08] LABS: Glucometer 121 mg/dL (74-106)
--- NOTE | 2023-07-20 14:30 | CM.NOTE ---
Important Message From Medicare discussed with pt, pt verbalizes understanding and signs paper. Original given to pt and copy placed on pt's chart.
[2023-07-20] MEDS: NITROGLYCERIN 2% 1 GRAM PACKET 1 GM TD (14:50)
[2023-07-20] MEDS: ERTAPENEM SODIUM 0.5 GM in 0.9 % SODIUM CHLORIDE 50 ML IV (15:07)
[2023-07-20 15:10] LABS: Glucometer 125 mg/dL (74-106)
[2023-07-20 16:14] LABS: Glucometer 136 mg/dL (74-106)
--- NOTE | 2023-07-20 17:36 | PC.NURSE ---
abd circumference measures 54 inches
[2023-07-20 19:59] LABS: Glucometer 239 mg/dL (74-106)
[2023-07-20] MEDS: INSULIN ASPART 300 UNIT/3 ML PEN SUBQ (23:18)
[2023-07-20] MEDS: DEXTROSE 5%-LACTATED RINGERS 1,000 ML 100 ML IV (23:21)
[2023-07-20 23:24] LABS: Glucometer 310 mg/dL (74-106)
[2023-07-21] VITALS (112 sets, daily range): BP systolic 130–158; BP diastolic 59–71; PULSE 83–111; RESP 6–101; TEMP 36.6–37.1; O2SAT 90–96
[2023-07-21] MEDS: CLINDAMYCIN PHOSPHATE/D5W 600 MG/50 ML PIGGYBACK 100 MG IV ×4 (01:24→19:37)
[2023-07-21 03:12] LABS: Glucometer 316 mg/dL (74-106)
[2023-07-21 04:45] LABS: Basophils Percent Auto 0.2 % (0.2-2.0); Hematocrit 32.9 % (42.0-54.0); Hemoglobin 10.6 g/dL (14.0-18.0); Immature Granulocytes Abs Auto 0.08 10^3/uL (0.00-0.03); Immature Granulocytes Pct Auto 0.9 % (0.0-0.5); Lymphocytes Absolute Auto 0.5 10^3/uL (1.2-3.8); Lymphocytes Percent Auto 5.3 % (20.5-60.0); Mean Corpuscular HGB Conc 32.2 g/dL (29.9-35.2); Mean Corpuscular Hemoglobin 32.5 pg (25.9-34.0); Mean Corpuscular Volume 100.9 fL (80.0-94.0); Monocytes Absolute Auto 0.3 10^3/uL (0.3-0.8); Monocytes Percent Auto 3.8 % (1.7-12.0); Neutrophils Absolute Auto 7.9 10^3/uL (1.4-6.5); Neutrophils Percent Auto 89.8 % (43.0-75.0); Platelet Count 159 10^3/uL (150-450); Red Blood Count 3.26 10^6/uL (4.70-6.10); Red Cell Distribution Width 13.7 % (11.0-15.0); White Blood Count 8.7 10^3/uL (4.0-11.0)
[2023-07-21 04:59] LABS: Alanine Aminotransferase 122 U/L (16-63); Albumin Globulin Ratio 0.5; Albumin Level 1.9 g/dL (3.4-5.0); Alkaline Phosphatase 74 U/L (46-116); Aspartate Amino Transferase 119 U/L (15-37); Bilirubin Direct 0.2 mg/dL (0.0-0.2); Bilirubin Total 0.5 mg/dL (0.2-1.0); Total Protein 5.9 g/dL (6.4-8.2)
--- NOTE | 2023-07-21 06:30 | XR_ITS ---
[address] [address] Patient Name: GLADYS SMYTH MRN: [id number] date: 1940 Sex: M Assigned Patient Location: ICU Current Patient Location: ICU Accession/Order Number: [id number] Exam Date: 07/21/2023 06:25 Report Date: 07/21/2023 07:10 At the request of: TRAY ALFARO Procedure: XR acute abdomen series EXAMINATION: XR acute abdomen series HISTORY: ileus COMPARISON: No relevant comparison available. FINDINGS: LUNGS: No infiltrate, pneumothorax, or pleural effusion. Elevation of the right hemidiaphragm. Left lung nodules, size and density suggests granulomas MEDIASTINUM: No abnormal widening. BOWEL GAS PATTERN: Enteric tube tip projects over the left upper quadrant last sidehole is likely in the esophagus. Gaseous distention of small bowel loopsr measuring up to 4.6 cm. Air is seen in the descending colon FREE AIR: None. CALCIFICATIONS: None significant. BONES: No fracture or visible bone lesion. Degenerative spondylosis. Moderate degenerative changes of the hips OTHER: Negative. XR/XR acute abdomen series IMPRESSION: High position of enteric tube. Advancement 5 to 10 cm is recommended Dilated small bowel loops, ileus is favored over a bowel obstruction Electronically authenticated by: TYLER MONSIVAIS Date: 07/21/2023 07:10
[2023-07-21 07:09] LABS: Anion Gap 17.8; BUN Creatinine Ratio 25.5; Calcium 8.4 mg/dL (8.5-10.1); Carbon Dioxide 20.8 mmol/L (21.0-32.0); Chloride 105 mmol/L (98-107); Estimated GFR (African America 35 (>=60); Estimated GFR (Non-African Ame 29 (>=60); Glucose 335 mg/dL (74-106); Potassium 4.6 mmol/L (3.5-5.1); Sodium 139 mmol/L (136-145)
[2023-07-21] MEDS: LACTATED RINGER'S SOLUTION 1,000 ML 75 ML IV ×2 (07:09→19:37)
--- NOTE | 2023-07-21 07:56 | P.PN_ITS ---
Progress Note: Subjective Subjective Interval history: Patient states feels better than yesterday. Currently up in chair. Exam Constitutional Vital Signs, click to edit/add: Last Vital Signs Temp 98.7 F 07/21/23 06:21 Pulse 94 H 07/21/23 06:21 Resp 22 07/21/23 06:21 BP 130/59 07/21/23 06:21 Pulse Ox 96 07/21/23 06:21 O2 Del Method Nasal Cannula 07/21/23 06:21 O2 Flow Rate 2 07/21/23 06:21 Documenting provider has reviewed patient's vital signs: yes Common normals: no apparent distress Respiratory Common normals: normal respiratory effort and no retractions Cardio Common normals: regular rate and regular rhythm GI Common normals: Normal to inspection, nondistended, normoactive bowel sounds present (Deferred exam to surgery) Extremity Common normals: normal to inspection and full ROM Progress Note: Objective Labs Labs: Short CBC 07/20/23 07/21/23 Range/Units 11:27 04:05 WBC 8.6 8.7 (4.0-11.0) 10^3/uL Hgb 10.8 L 10.6 L (14.0-18.0) g/dL Hct 33.0 L 32.9 L (42.0-54.0) % Plt Count 156 159 (150-450) 10^3/uL BMP 07/20/23 07/21/23 11:39 04:05 Sodium 140 139 Potassium 3.9 4.6 Chloride 106 105 Carbon Dioxide 25.0 20.8 L BUN 56.0 H 56.0 H Creatinine 2.69 H 2.20 H Glucose 134 H 335 H Calcium 8.3 L 8.4 L Liver Function 07/21/23 Range/Units 04:05 Total Bilirubin 0.5 (0.2-1.0) mg/dL Direct Bilirubin 0.2 (0.0-0.2) mg/dL AST 119 H (15-37) U/L ALT 122 H (16-63) U/L Alkaline Phosphatase 74 (46-116) U/L Albumin 1.9 L (3.4-5.0) g/dL Progress Note: A&P Assessment and Plan (1) Acute appendicitis: Qualifiers: Acute appendicitis type: with localized peritonitis Appendicitis abscess presence: with abscess Appendicitis gangrene presence: unspecified whether gangrene present Appendicitis perforation presence: with perforation Qualified Code(s): K35.33 - Acute appendicitis with perforation, localized peritonitis, and gangrene, with abscess Plan Sinus tachycardia, respiratory distress, hypoxia, severe hypoglycemia, leukocytosis, elevated liver function test, fever secondary to acute appendicitis resulting in sepsis-status post surgery 07/19. acute abdominal series reveals ileus. NG tube in place -patient did pass gas this morning. Has some bowel sounds as well. Check on acute abdominal series and discussed with surgery Severe mehmbxdrhyct-gwmygzom-wfojlw now over 300, will change patient from D5 to normal lactated Ringer, cut back fluid rate as well. Leukocytosis-secondary to above-resolved Acute hepatitis likely secondary to passive congestion secondary to the above - somewhat deteriorated-unable to get ultrasound of abdomen depending on progression Mild hypoxia-likely secondary to abdominal bloating and some degree of sleep apnea-off of oxygen so far this morning Iron deficiency anemia-stable Acute kidney injury on top of chronic kidney disease stage III-better this morning than previous day. Not back to baseline Coronary artery disease-we will hold medications but use Nitropaste. No chest pain Hypertension by history-we will hold off on oral medications with NG tube in place Hypothyroidism-holding medications Urinary Catheter Management Urinary Catheter Management Urethral: Cath placed during this visit: yes Urethral indwelling: Yes Reason for continuing: acute urinary retention Insertion date: 07/19/23
[2023-07-21 08:21] LABS: Glucometer 308 mg/dL (74-106)
[2023-07-21] MEDS: INSULIN ASPART 300 UNIT/3 ML PEN SUBQ ×3 (08:21→16:39)
[2023-07-21] MEDS: PANTOPRAZOLE SODIUM 40 MG VIAL IV (08:21)
[2023-07-21] MEDS: NITROGLYCERIN 2% 1 GRAM PACKET 1 GM TD ×2 (08:22→16:03)
[2023-07-21] MEDS: KETOCONAZOLE 15 APPLIC TUBE TOPICAL (08:22)
--- NOTE | 2023-07-21 11:22 | PM.GSPN ---
Progress Note: A&P Assessment and Plan (1) Acute appendicitis: Qualifiers: Acute appendicitis type: with localized peritonitis Appendicitis abscess presence: with abscess Appendicitis gangrene presence: unspecified whether gangrene present Appendicitis perforation presence: with perforation Qualified Code(s): K35.33 - Acute appendicitis with perforation, localized peritonitis, and gangrene, with abscess Plan s/p 07/19/23 diagnostic laparoscopy with washout and drain placement 1. Clamp trial for NGT, can remove if pt tolerates for 2-4 hrs, ok for sips with meds and oswald sips of broth after, monitor strict I/Os 2. Awaiting return of BMs, encourage ambulation and sitting in chair, monitor ADRIANO drain output 3. Cont IV abx, can switch to less renal caustic per pharmacy/ primary if needed given KELSEA, ok for discontinuing rotiz from gen surg stance. Once pt is tolerating PO intake can switch to PO abx for a total course of 10-14 days 4. Recommend PT/OT evaluation to help with mobility and activity while in hospital 5. Criteria for d/c: pt afebrile, having bowel function and tolerating PO intake, pain controlled and normal WBC 6. Plan for repeat CT scan in 5-6 weeks with discussion of possible interval appendectomy if warranted based on CT findings 7. ADRIANO drain can be discontinued as out pt per local PCP or general surgeon once output is less then 30ml per day Subjective Subjective Interval history: Patient states that he is doing better today. He admits to having flatus. States that his abdominal pain has improved and only has occasional aches. He states that he was up moving around a little bit today. He denies any fevers or chills. Still having issues with his blood sugars. Discussed with him the plan of clamping his NG tube and potentially removing it later if he is tolerating the clamp trial. Exam Constitutional Vital Signs, click to edit/add: Last Vital Signs Temp 98.7 F 07/21/23 06:21 Pulse 108 H 07/21/23 11:19 Resp 22 07/21/23 06:21 BP 130/59 07/21/23 06:21 Pulse Ox 96 07/21/23 11:19 O2 Del Method Nasal Cannula 07/21/23 06:21 O2 Flow Rate 2 07/21/23 06:21 Common normals: no apparent distress and oriented x3 Respiratory Common normals: normal respiratory effort GI Other: Soft, nontender, mild distention, no rebound, no guarding, incision clean dry intact, ADRIANO drain with good suction and serosanguineous fluid noted 75ml Urinary Catheter Management Urinary Catheter Management Urethral: Cath placed during this visit: yes Urethral indwelling: Yes Reason for continuing: measure accurate output Insertion date: 07/19/23
[2023-07-21 11:54] LABS: Glucometer 278 mg/dL (74-106)
--- NOTE | 2023-07-21 14:27 | SWNOTE1 ---
SW met with pt to discuss dc needs. Pt lives at home with his . Pt has walkers and canes at home. Does not always use them but has access to them. Pt is not current with any HH at this time. SW spoke with him about having at least HH nurse come in for ADRIANO drain. Pt is open to this. Pt did well with therapy and no need for PT/OT at home. SW provided list from medicare.gov with star ratings. Pt and will review and they are also going to speak with there neighbor today as he had HH in past. At this time they are leaning towards [facility] or [facility] .
--- NOTE | 2023-07-21 14:31 | SWNOTE1 ---
SW did explain to the pt and not all companies accept [facility] medicare. They voiced understanding. SW also reviewed IMM form with pt and . Pt voiced understanding, no questions at this time. Pt signed form, copy placed on chart and original given to pt.
[2023-07-21 15:05] LABS: Glucometer 232 mg/dL (74-106)
[2023-07-21] MEDS: ERTAPENEM SODIUM 0.5 GM in 0.9 % SODIUM CHLORIDE 50 ML IV (15:30)
--- NOTE | 2023-07-21 16:30 | SWNOTE1 ---
SLICK spoke with pt and and they have decided on [facility]. SW called and they do take some [facility] medicares but would have to run benefits. SLICK sent referral.
[2023-07-21] MEDS: ONDANSETRON PF 4 MG/2 ML VIAL IV (19:23)
[2023-07-21 21:03] LABS: Glucometer 223 mg/dL (74-106)
[2023-07-21 23:08] LABS: Glucometer 200 mg/dL (74-106)
[2023-07-22] VITALS (81 sets, daily range): BP systolic 117–155; BP diastolic 65–79; PULSE 61–102; RESP 0–33; TEMP 36.4–36.8; O2SAT 91–95
[2023-07-22] MEDS: ONDANSETRON PF 4 MG/2 ML VIAL IV (01:05)
[2023-07-22] MEDS: CLINDAMYCIN PHOSPHATE/D5W 600 MG/50 ML PIGGYBACK 100 MG IV ×4 (01:06→20:44)
[2023-07-22 04:31] LABS: Hematocrit 31.9 % (42.0-54.0); Hemoglobin 10.4 g/dL (14.0-18.0); Mean Corpuscular HGB Conc 32.6 g/dL (29.9-35.2); Mean Corpuscular Hemoglobin 32.4 pg (25.9-34.0); Mean Corpuscular Volume 99.4 fL (80.0-94.0); Mean Platelet Volume 11.4 fL (9.5-13.5); Platelet Count 191 10^3/uL (150-450); Red Blood Count 3.21 10^6/uL (4.70-6.10); Red Cell Distribution Width 13.6 % (11.0-15.0); White Blood Count 9.3 10^3/uL (4.0-11.0)
[2023-07-22 04:40] LABS: Anion Gap 12.9; BUN Creatinine Ratio 28.9; Calcium 8.8 mg/dL (8.5-10.1); Carbon Dioxide 24.4 mmol/L (21.0-32.0); Chloride 114 mmol/L (98-107); Estimated GFR (African America 42 (>=60); Estimated GFR (Non-African Ame 34 (>=60); Glucose 225 mg/dL (74-106); Potassium 4.3 mmol/L (3.5-5.1); Sodium 147 mmol/L (136-145)
[2023-07-22 04:50] LABS: Alanine Aminotransferase 150 U/L (16-63); Albumin Globulin Ratio 0.5; Alkaline Phosphatase 79 U/L (46-116); Aspartate Amino Transferase 131 U/L (15-37); Bilirubin Direct 0.2 mg/dL (0.0-0.2); Bilirubin Total 0.5 mg/dL (0.2-1.0); Globulin 3.8 g/dL; Total Protein 5.8 g/dL (6.4-8.2)
[2023-07-22 06:00] LABS: Atypical Lymphocytes Abs Man 0.18; Lymphocytes Absolute Manual 0.27 10^3/uL (1.20-3.80); Monocytes Absolute Manual 0.55 10^3/uL (0.30-0.80); Myelocytes Absolute Manual 0.09; Segmented Neut Absolute Manual 8.18 10^3/uL (1.4-6.5)
--- NOTE | 2023-07-22 06:00 | XR_ITS ---
The [address] [address] Patient Name: GLADYS SMYTH MRN: [id number] date: 1940 Sex: M Assigned Patient Location: ICU Current Patient Location: ICU Accession/Order Number: [id number] Exam Date: 07/22/2023 04:50 Report Date: 07/22/2023 07:04 At the request of: TRAY ALFARO Procedure: XR acute abdomen series EXAMINATION: XR acute abdomen series HISTORY: ileus COMPARISON: 07/21/2023 FINDINGS: LUNGS: Mild left basilar infiltrate. Stable left basilar nodule, calcified granuloma. Elevated right hemidiaphragm MEDIASTINUM: No abnormal widening. BOWEL GAS PATTERN: Distended small and large bowel loops. Small bowel measures up to 3.8 cm. Air is seen extending down to the rectum FREE AIR: None. CALCIFICATIONS: None significant. BONES: No fracture or visible bone lesion. OTHER: Negative. XR/XR acute abdomen series IMPRESSION: Mild left basilar infiltrate Gaseous distention of small and large bowel loops. Ileus is favored Electronically authenticated by: TYLER MONSIVAIS Date: 07/22/2023 07:04
[2023-07-22 07:35] LABS: Glucometer 173 mg/dL (74-106)
--- NOTE | 2023-07-22 08:00 | P.PN_ITS ---
Progress Note: Subjective Subjective Interval history: Passing gas but no BM Exam Constitutional Vital Signs, click to edit/add: Last Vital Signs Temp 98.2 F 07/22/23 06:09 Pulse 97 H 07/22/23 07:45 Resp 16 07/22/23 07:45 BP 155/74 H 07/22/23 07:24 Pulse Ox 94 L 07/22/23 07:24 O2 Del Method Room Air 07/22/23 06:09 O2 Flow Rate 2 07/21/23 06:21 Documenting provider has reviewed patient's vital signs: yes Common normals: no apparent distress Respiratory Common normals: normal respiratory effort and no retractions Cardio Common normals: regular rate and regular rhythm GI Common normals: Normal to inspection, nondistended, normoactive bowel sounds present (Deferred exam to surgery) Extremity Common normals: normal to inspection and full ROM Progress Note: Objective Labs Labs: Short CBC 07/22/23 Range/Units 03:59 WBC 9.3 (4.0-11.0) 10^3/uL Hgb 10.4 L (14.0-18.0) g/dL Hct 31.9 L (42.0-54.0) % Plt Count 191 (150-450) 10^3/uL BMP 07/22/23 03:59 Sodium 147 H Potassium 4.3 Chloride 114 H Carbon Dioxide 24.4 BUN 55.0 H Creatinine 1.90 H Glucose 225 H Calcium 8.8 Liver Function 07/22/23 Range/Units 03:59 Total Bilirubin 0.5 (0.2-1.0) mg/dL Direct Bilirubin 0.2 (0.0-0.2) mg/dL AST 131 H (15-37) U/L ALT 150 H (16-63) U/L Alkaline Phosphatase 79 (46-116) U/L Albumin 2.0 L (3.4-5.0) g/dL Progress Note: A&P Assessment and Plan (1) Acute appendicitis: Qualifiers: Acute appendicitis type: with localized peritonitis Appendicitis abscess presence: with abscess Appendicitis gangrene presence: unspecified whether gangrene present Appendicitis perforation presence: with perforation Qualified Code(s): K35.33 - Acute appendicitis with perforation, localized peritonitis, and gangrene, with abscess Plan Sinus tachycardia, respiratory distress, hypoxia, severe hypoglycemia, leukocytosis, elevated liver function test, fever secondary to acute appendicitis resulting in sepsis-status post surgery 07/19. acute abdominal series reveals ileus. NG removed yesterday. Clear liquids started. No BM yet Severe [id number] now over 300, will restart oral medications Leukocytosis-secondary to above-resolved Acute hepatitis likely secondary to passive congestion secondary to the above - elevated slightly today-bilirubin normal, continue to monitor Mild hypoxia-likely secondary to abdominal bloating and some degree of sleep apnea-has been off supplemental oxygen for the last 36 hours Iron deficiency anemia-stable Acute kidney injury on top of chronic kidney disease stage III-better this morning than previous day. Almost back to baseline-will saline lock Coronary artery disease-restart oral medications Hypertension by history-restart oral medications Hypothyroidism-restart oral medications Urinary Catheter Management Urinary Catheter Management Urethral: Cath placed during this visit: yes, but has since been removed by the nurse Urethral indwelling: Yes Insertion date: 07/19/23 Removal date: 07/22/23 Removal time: 07:40
[2023-07-22] MEDS: ISOSORBIDE MONONITRATE 60 MG TAB.ER.24H 120 MG PO (08:06)
[2023-07-22] MEDS: ASPIRIN 81 MG TAB.CHEW PO (08:06)
[2023-07-22] MEDS: METOPROLOL TARTRATE 50 MG TABLET PO ×2 (08:06→20:45)
[2023-07-22] MEDS: LIOTHYRONINE SODIUM 5 MCG TABLET PO (08:06)
[2023-07-22] MEDS: SITAGLIPTIN PHOSPHATE 50 MG TABLET 100 MG PO (08:07)
[2023-07-22] MEDS: PANTOPRAZOLE SODIUM 40 MG VIAL IV (08:07)
[2023-07-22] MEDS: PIOGLITAZONE 15 MG TABLET PO (08:07)
[2023-07-22] MEDS: RANOLAZINE 500 MG TAB.ER.12H PO ×2 (08:12→20:52)
--- NOTE | 2023-07-22 09:39 | PM.GSPN ---
Progress Note: A&P Assessment and Plan (1) Acute appendicitis: Assessment and Plan: s/p 07/19/23 diagnostic laparoscopy with washout and drain placement 1. Ok for sips with meds and oswald sips of clears today, pt needs to go slow with PO intake, monitor strict I/Os 2. Awaiting return of BMs, encourage ambulation and sitting in chair, monitor ADRIANO drain output 3. Cont IV abx, Once pt is tolerating PO intake can switch to PO abx for a total course of 10-14 days 4. Recommend PT/OT evaluation to help with mobility and activity while in hospital 5. Criteria for d/c: pt afebrile, having bowel function and tolerating PO intake, pain controlled and normal WBC 6. Plan for repeat CT scan in 5-6 weeks with discussion of possible interval appendectomy if warranted based on CT findings 7. ADRIANO drain can be discontinued as out pt per local PCP or general surgeon once output is less then 30ml per day Qualifiers: Acute appendicitis type: with localized peritonitis Appendicitis abscess presence: with abscess Appendicitis gangrene presence: unspecified whether gangrene present Appendicitis perforation presence: with perforation Qualified Code(s): K35.33 - Acute appendicitis with perforation, localized peritonitis, and gangrene, with abscess Subjective Subjective Interval history: Patient states he is feeling well this morning. He is passing flatus but no bowel movements. Patient did have some emesis last night after having almost an entire clear liquid tray. Told him that he needs to go slow with the p.o. intake and just try 1 Jell-O cup for lunch today. And if he continues to do well may be slowly increase the amount of clears for dinner. Patient is motivated and encouraged him to continue walking and sitting up in chair. Exam Constitutional Vital Signs, click to edit/add: Last Vital Signs Temp 98.2 F 07/22/23 06:09 Pulse 77 07/22/23 09:24 Resp 16 07/22/23 07:45 BP 155/74 H 07/22/23 07:24 Pulse Ox 93 L 07/22/23 09:24 O2 Del Method Room Air 07/22/23 09:24 O2 Flow Rate 2 07/21/23 06:21 Common normals: no apparent distress and oriented x3 Respiratory Common normals: normal respiratory effort Cardio Common normals: regular rate GI Other: Soft, nontender, nondistended, incisions clean dry and intact, ADRIANO drain with good suction and serosanguineous fluid noted 50ml/24hr Extremity Common normals: normal to inspection Urinary Catheter Management Urinary Catheter Management Urethral: Cath placed during this visit: yes, but has since been removed by the nurse Urethral indwelling: No Insertion date: 07/19/23 Removal date: 07/22/23 Removal time: 07:40
--- NOTE | 2023-07-22 10:48 | SWNOTE1 ---
SW received message from [facility] and they are able to accept insurance and to let them know when discharge is.
[2023-07-22 11:02] LABS: Glucometer 221 mg/dL (74-106)
[2023-07-22] MEDS: ERTAPENEM SODIUM 0.5 GM in 0.9 % SODIUM CHLORIDE 50 ML IV (14:14)
[2023-07-22 16:08] LABS: Glucometer 204 mg/dL (74-106)
--- NOTE | 2023-07-22 16:40 | PT.DAILY ---
Physical Therapy Daily Note PT Daily Note/Assess Start: 07/22/23 16:27 Freq: Status: Active Protocol: Document 07/22/23 16:07 [id number] (Rec: 07/22/23 16:40 [id number]) Physical Therapy Daily Note/Assessment Time In/Time Out Time In 16:07 Time Out 16:24 Pain In Pain Level 2 Pain Out Pain Level 2 Subjective Subjective Patient received seated EOB, IV's disconnected by nursing earlier. present during treatment. Patient reports he has been up walking in room to bathroom. States he has any assistive device or equipment he may need at home already. Therapeutic Exercise Time Therapeutic Exercise Minutes (minutes) 8 Therapeutic Exercise Units 1 Therapeutic Exercise Treatment Therapeutic Exercise Treatment Seated exercises JUAN JOSÉ LE for AROM in all planes and isometric to promote strengthening. Therapeutic Activity Time Therapeutic Activity Minutes (minutes) 8 Therapeutic Activity Units 1 Therapeutic Activity Treatment Chair Transfer Ability Standby Assistance,1 Person Assist Therapeutic Activity Comments Patient ambulated greater than 500 feet with SBA with good step length and height. Verbal cues to slow pace of gait for safety. Did require 2 standing therapeutic rest breaks due to fatigue. 1 episode of LOB to R with MIN A to correct. Patient did verbalize increased R lower quadrant discomfort at 3/10 after ambulating. Patient verbalizes fatigue after walking. Patient seated in chair bedside for ther ex. Total Physical Therapy Time Total Therapy Minutes 16 Total Physical Therapy Units 2 Summary Daily Note Summary Patient demonstrates increased ambulation distance with fatigue. Patient with increased R lower quadrant discomfort after walking, subsides after resting in chair. Anticipate home with family when medically appropriate.
[2023-07-22] MEDS: INSULIN ASPART 300 UNIT/3 ML PEN SUBQ ×2 (17:06→21:02)
--- NOTE | 2023-07-22 19:50 | RESP.RT ---
No PRN breathing tx given. Pt denies need. No respiratory distress noted.
[2023-07-22 20:54] LABS: Glucometer 219 mg/dL (74-106)
[2023-07-23] VITALS (25 sets, daily range): BP systolic 132–157; BP diastolic 69–75; PULSE 50–82; RESP 0–33; TEMP 36.6; O2SAT 92–96
[2023-07-23] MEDS: CLINDAMYCIN PHOSPHATE/D5W 600 MG/50 ML PIGGYBACK 100 MG IV ×3 (01:55→13:20)
[2023-07-23 04:47] LABS: Basophils Percent Auto 0.2 % (0.2-2.0); Eosinophils Absolute Auto 0.1 10^3/uL (0.0-0.7); Eosinophils Percent Auto 1.3 % (0.9-7.0); Hematocrit 33.7 % (42.0-54.0); Hemoglobin 10.8 g/dL (14.0-18.0); Immature Granulocytes Pct Auto 4.5 % (0.0-0.5); Lymphocytes Absolute Auto 1.1 10^3/uL (1.2-3.8); Lymphocytes Percent Auto 12.1 % (20.5-60.0); Mean Corpuscular Hemoglobin 32.1 pg (25.9-34.0); Mean Corpuscular Volume 100.3 fL (80.0-94.0); Mean Platelet Volume 10.5 fL (9.5-13.5); Monocytes Absolute Auto 0.7 10^3/uL (0.3-0.8); Monocytes Percent Auto 7.3 % (1.7-12.0); Neutrophils Absolute Auto 6.6 10^3/uL (1.4-6.5); Neutrophils Percent Auto 74.6 % (43.0-75.0); Platelet Count 213 10^3/uL (150-450); Red Blood Count 3.36 10^6/uL (4.70-6.10); Red Cell Distribution Width 13.9 % (11.0-15.0); White Blood Count 8.9 10^3/uL (4.0-11.0)
[2023-07-23 04:59] LABS: BUN Creatinine Ratio 24.8; Calcium 8.6 mg/dL (8.5-10.1); Carbon Dioxide 25.9 mmol/L (21.0-32.0); Chloride 110 mmol/L (98-107); Estimated GFR (African America 37 (>=60); Estimated GFR (Non-African Ame 31 (>=60); Glucose 114 mg/dL (74-106); Potassium 3.9 mmol/L (3.5-5.1); Sodium 141 mmol/L (136-145)
[2023-07-23 05:08] LABS: Alanine Aminotransferase 134 U/L (16-63); Albumin Globulin Ratio 0.5; Albumin Level 2.1 g/dL (3.4-5.0); Alkaline Phosphatase 78 U/L (46-116); Aspartate Amino Transferase 88 U/L (15-37); Bilirubin Direct 0.3 mg/dL (0.0-0.2); Bilirubin Total 0.7 mg/dL (0.2-1.0); Globulin 3.9 g/dL
--- NOTE | 2023-07-23 06:00 | XR_ITS ---
The [address] [address] Patient Name: GLADYS SMYTH MRN: [id number] date: 1940 Sex: M Assigned Patient Location: ICU Current Patient Location: ICU Accession/Order Number: [id number] Exam Date: 07/23/2023 04:58 Report Date: 07/23/2023 09:25 At the request of: TRAY ALFARO Procedure: XR acute abdomen series PROCEDURE: XR acute abdomen series DATE: 07/23/2023 4:58 AM EST COMPARISONS: 07/22/2023 CLINICAL INDICATION: 82 years Male ileus FINDINGS: Frontal view the chest done as part of the abdominal series shows the heart to be prominent and stable. Granulomatous changes again identified mid lower left chest. Lungs are otherwise clear. There is no evidence of pleural effusion or pneumothorax. There is no evidence of free intraperitoneal air. The amount of gas within the small and large bowel has decreased significantly from previous exam. There is now small amount of scattered stool and a small amount of gas throughout the colon. There is a small amount of scattered gas within nondistended loops of small bowel, decreased significantly in prominence from previous exam. There is a small amount of stomach gas decreased from previous exam. Overall, abdominal gas pattern is now within normal limits. No abnormal calcifications overlie the abdomen. The visualized osseous structures show no evidence of acute findings. There is some mild to moderate lumbar degenerative spondylosis, stable. XR/XR acute abdomen series IMPRESSION: These abdominal radiographs show no evidence of significant abnormalities. On today's exam the abdominal gas pattern is within normal limits. The small and large bowel distention seen on previous exam has resolved. Electronically authenticated by: TREVON CONKLIN Date: 07/23/2023 09:25
[2023-07-23] MEDS: LIOTHYRONINE SODIUM 5 MCG TABLET PO (07:26)
--- NOTE | 2023-07-23 07:37 | P.DS_ITS ---
DS: Providers Provider Date of admission: 07/20/23 07:39 Primary care physician: Jose Danielson MD Consults: 07/21/23 13:07 Physical Therapy Eval and Treat Routine Reason for consultation: eval Has provider been notified: No DS: Diagnosis Discharge Diagnosis (1) Acute appendicitis: Assessment and plan: Sinus tachycardia, respiratory distress, hypoxia, severe hypoglycemia, leukocytosis, elevated liver function test, fever secondary to acute appendicitis resulting in sepsis- Severe hypoglycemia Leukocytosis Acute hepatitis likely secondary to passive congestion secondary to the above Mild hypoxia-likely secondary to abdominal bloating and some degree of sleep apnea Iron deficiency anemia Acute kidney injury on top of chronic kidney disease stage III Coronary artery disease Hypertension by history Hypothyroidism Qualifiers: Acute appendicitis type: with localized peritonitis Appendicitis abscess presence: with abscess Appendicitis gangrene presence: unspecified whether gangrene present Appendicitis perforation presence: with perforation Qualified Code(s): K35.33 - Acute appendicitis with perforation, localized peritonitis, and gangrene, with abscess DS: Summary Hospital Course Hospital Course: Patient was seen in the office with increasing nausea fatigue and some abdominal pain. Outpatient labs and CT scan were ordered. Outpatient labs show significant hyperglycemia, CT scan showed acute appendicitis and patient was referred to ER. In ER surgery was consulted. Patient taken to the operating room and had washout and drain placement for ruptured appendix with abscess. Placed on IV antibiotics. Blood cultures obtained. Blood cultures did not grow anything. Postop day 1 patient has significant issues with persisting hypoglycemia. Given multiple amps of D50 as well as placed on D5 LR, is slowly improved after the first 36 hours. Then sugars became elevated as he is a diabetic. Patient also developed a postop ileus. NG tube was placed for about 48 hours. Patient started having flatus. NG tube was clamped with no significant residual and then was then removed. He was on clear liquids for a day prior to starting regular 1800-calorie diet today. He had a good bowel movement last night. If he tolerates breakfast and lunch we will confer with surgery but likely discharged home in improving condition. Medications see list. See me in the office next week. For drain removal Time Spent with Patient Time attestation: Total time spent providing and/or coordinating discharge services: Exam Constitutional Vital Signs, click to edit/add: Last Vital Signs Temp 98.2 F 07/22/23 20:40 Pulse 62 07/23/23 06:00 Resp 28 H 07/23/23 05:00 BP 138/72 07/23/23 04:06 Pulse Ox 95 07/23/23 04:06 O2 Del Method Room Air 07/23/23 04:02 O2 Flow Rate 2 07/21/23 06:21 Documenting provider has reviewed patient's vital signs: yes Common normals: no apparent distress Respiratory Common normals: normal respiratory effort and no retractions Cardio Common normals: regular rate and regular rhythm GI Common normals: Normal to inspection, nondistended, normoactive bowel sounds present (minimal tenderness) Extremity Common normals: normal to inspection and full ROM DS: Data Data Completed and Pending Labs on day of discharge: Labs from last 24 hours 07/23/23 07/22/23 07/22/23 04:16 20:54 16:07 WBC 8.9 RBC 3.36 L Hgb 10.8 L Hct 33.7 L MCV 100.3 H MCH 32.1 MCHC 32.0 RDW 13.9 Plt Count 213 MPV 10.5 Neut % (Auto) 74.6 Lymph % (Auto) 12.1 L [place] % (Auto) 7.3 Eos % (Auto) 1.3 Baso % (Auto) 0.2 Neut # (Auto) 6.6 H Lymph # (Auto) 1.1 L [place] # (Auto) 0.7 Eos # (Auto) 0.1 Baso # (Auto) 0.0 Abs Immat Gran (auto) 0.40 H Imm/Tot Granulo (auto) 4.5 H Sodium 141 Potassium 3.9 Chloride 110 H Carbon Dioxide 25.9 Anion Gap 9.0 BUN 52.0 H Creatinine 2.10 H Est GFR ( Amer) 37 L Est GFR (Non-Af Amer) 31 L BUN/Creatinine Ratio 24.8 Glucose 114 H Calcium 8.6 Total Bilirubin 0.7 Direct Bilirubin 0.3 H AST 88 H ALT 134 H Alkaline Phosphatase 78 Total Protein 6.0 L Albumin 2.1 L Globulin 3.9 Albumin/Globulin Ratio 0.5 POC Glucose 219 H 204 H 07/22/23 11:00 WBC RBC Hgb Hct MCV MCH MCHC RDW Plt Count MPV Neut % (Auto) Lymph % (Auto) [place] % (Auto) Eos % (Auto) Baso % (Auto) Neut # (Auto) Lymph # (Auto) [place] # (Auto) Eos # (Auto) Baso # (Auto) Abs Immat Gran (auto) Imm/Tot Granulo (auto) Sodium Potassium Chloride Carbon Dioxide Anion Gap BUN Creatinine Est GFR ( Amer) Est GFR (Non-Af Amer) BUN/Creatinine Ratio Glucose Calcium Total Bilirubin Direct Bilirubin AST ALT Alkaline Phosphatase Total Protein Albumin Globulin Albumin/Globulin Ratio POC Glucose 221 H Preliminary micro results at discharge 07/20/23 11:39 - Preliminary Blood NO GROWTH AT 36-48 HOURS. FINAL TO FOLLOW. 07/20/23 11:27 Blood Culture Result 1 - Preliminary Blood NO GROWTH AT 36-48 HOURS. FINAL TO FOLLOW. 07/19/23 23:33 - Preliminary Blood NO GROWTH AT 36-48 HOURS. FINAL TO FOLLOW. 07/19/23 23:27 Blood Culture Result 1 - Preliminary Blood NO GROWTH AT 36-48 HOURS. FINAL TO FOLLOW. Discharge Plan Discharge Disposition: Home, Self-Care Discharge Medications: New clindamycin HCl 300 mg capsule 300 mg PO Q6H 5 Days Qty: 20 0RF cefdinir 300 mg capsule 300 mg PO BID 5 Days Qty: 10 0RF Continued albuterol sulfate 90 mcg/actuation HFA aerosol inhaler 1 inh INHALATION Q6H PRN (Reason: shortness of breath or wheezing) amlodipine 10 mg tablet 10 mg PO DAILY atorvastatin 80 mg tablet 80 mg PO QPM isosorbide mononitrate 60 mg tablet extended release 24 hr 120 mg PO DAILY ketoconazole 2 % cream 1 applic TOPICAL DAILY Patient Comments: JOCK ITCH/RASH levothyroxine 50 mcg tablet 50 mcg PO DAILY liothyronine 5 mcg tablet 5 mcg PO DAILY lisinopril 20 mg tablet 20 mg PO DAILY metoprolol tartrate 50 mg tablet 50 mg PO Q12H nitroglycerin 0.4 mg tablet, sublingual 0.4 mg sublingual Q5M PRN (Reason: chest pain) pioglitazone 15 mg tablet 15 mg PO DAILY ranolazine 500 mg tablet extended release 12 hr 500 mg PO Q12H Spiriva Respimat 2.5 mcg/actuation mist 2 inh INHALATION Q24H [id number] [id number] mg tablet 1 tab PO BID aspirin 81 mg capsule 81 mg PO DAILY Januvia 100 mg tablet 100 mg PO DAILY Discontinued glimepiride 4 mg tablet 4 mg PO BID [employer] Maintenance Manager/[employer] Instructions: Discharge with [facility], phone number is [phone]. They should be in contact within 48 hours of discharge. Forms: Portal Instructions
[2023-07-23 08:05] LABS: Glucometer 120 mg/dL (74-106)
[2023-07-23] MEDS: SITAGLIPTIN PHOSPHATE 50 MG TABLET 100 MG PO (08:26)
[2023-07-23] MEDS: LEVOTHYROXINE SODIUM 25 MCG TABLET 50 MCG PO (08:26)
[2023-07-23] MEDS: ISOSORBIDE MONONITRATE 60 MG TAB.ER.24H 120 MG PO (08:26)
[2023-07-23] MEDS: RANOLAZINE 500 MG TAB.ER.12H PO (08:26)
[2023-07-23] MEDS: PIOGLITAZONE 15 MG TABLET PO (08:27)
[2023-07-23] MEDS: METOPROLOL TARTRATE 50 MG TABLET PO (08:27)
[2023-07-23] MEDS: ASPIRIN 81 MG TAB.CHEW PO (08:29)
[2023-07-23] MEDS: PANTOPRAZOLE SODIUM 40 MG VIAL IV (08:33)
--- NOTE | 2023-07-23 09:22 | PT.DAILY ---
Physical Therapy Daily Note PT Daily Note/Assess Start: 07/22/23 16:27 Freq: Status: Active Protocol: Document 07/23/23 09:15 [id number] (Rec: 07/23/23 09:22 [id number]) Physical Therapy Daily Note/Assessment Time In/Time Out Time In 08:10 Time Out 08:27 Pain In Pain Level 1 Pain Out Pain Level 1 Subjective Subjective Patient received in bed, describes pain as uncomfortable along surgical areas. States he is scheduled to go home today. Therapeutic Exercise Time Therapeutic Exercise Minutes (minutes) 6 Therapeutic Exercise Units 1 Therapeutic Exercise Treatment Therapeutic Exercise Treatment Patient performed seated ther ex to JUAN JOSÉ LE for AROM and isometrics for strengthening. Therapeutic Activity Time Therapeutic Activity Minutes (minutes) 10 Therapeutic Activity Units 1 Therapeutic Activity Treatment Bed Mobility Ability Standby Assistance Chair Transfer Ability Standby Assistance Therapeutic Activity Comments Patient ambulated greater than 500 feet x1 while pushing IV pole. No LOB this date. Patient requests to use urinal - able to complete ADL with SBA +1. Patient uses JUAN JOSÉ UE to help lower self into chair. Call jay within patient reach. Total Physical Therapy Time Total Therapy Minutes 16 Total Physical Therapy Units 2 Summary Daily Note Summary Patient demonstrates improve stability during gait secondary to no LOB this date. Patient to go home with family potentially today.
[2023-07-23 12:24] LABS: Glucometer 237 mg/dL (74-106)
[2023-07-23] MEDS: INSULIN ASPART 300 UNIT/3 ML PEN SUBQ (12:27)
[2023-07-23] MEDS: ERTAPENEM SODIUM 0.5 GM in 0.9 % SODIUM CHLORIDE 50 ML IV (14:41)
[2023-07-23] MEDS: 0.9 % SODIUM CHLORIDE 250 ML IV.SOLN IV (14:41)
[2023-07-25 16:03] VITALS: BMI 35.7
--- NOTE | 2023-07-26 10:37 | CM.DCFOLLOWU ---
Person spoke with: patient How are you feeling? some pain, but overall feeling alright How is your pain? small amount of pain Did you understand your discharge instructions? yes Do you have any questions about your discharge instructions? no Were you given any prescriptions at discharge? yes Were you able to get your prescriptions filled? yes Do you understand how to take your medications as ordered? yes Do you have any questions about your follow up appointment and do you plan to keep your follow up appointment? no questions, follow up Tuesday. Is there anything else that you would like to discuss? [facility] has not reached out yet, advised to call them today or tomorrow if he has not heard anything yet Questions/Comments/Concerns/Other: N/A
== END 2023-07-23 16:00 | disposition home or self-care (01) | DRG 853 ==
LOC: ER 14:41 → MS 15:39 → ICU 07-20 12:35
PROVIDERS: Family Medicine; Registered Nurse; Surgery; Admitting Provider Family Medicine; Emergency Provider Emergency Medicine; PCP Family Medicine; Visit Provider Family Medicine
PROC: 0W9G40Z Drainage of Peritoneal Cavity with Drainage Device, Percutaneous Endoscopic Approach (ICD-10-PCS; principal; 2023-07-19 16:30)
DX: A41.9 Sepsis, unspecified organism (principal); K35.33 Acute appendicitis with perforation, localized peritonitis, and gangrene, with abscess; K72.00 Acute and subacute hepatic failure without coma; N17.9 Acute kidney failure, unspecified; K56.7 Ileus, unspecified; R06.03 Acute respiratory distress; R09.02 Hypoxemia; R94.5 Abnormal results of liver function studies; D50.9 Iron deficiency anemia, unspecified; I12.9 Hypertensive chronic kidney disease with stage 1 through stage 4 chronic kidney disease, or unspecified chronic kidney disease; N18.30 Chronic kidney disease, stage 3 unspecified; E03.9 Hypothyroidism, unspecified; E11.22 Type 2 diabetes mellitus with diabetic chronic kidney disease; E11.649 Type 2 diabetes mellitus with hypoglycemia without coma; I25.10 Atherosclerotic heart disease of native coronary artery without angina pectoris; K38.1 Appendicular concretions; Z87.891 Personal history of nicotine dependence; Z79.84 Long term (current) use of oral hypoglycemic drugs; Z79.82 Long term (current) use of aspirin; Z79.890 Hormone replacement therapy; Z79.899 Other long term (current) drug therapy; Z95.5 Presence of coronary angioplasty implant and graft; Z88.1 Allergy status to other antibiotic agents; Z88.0 Allergy status to penicillin
CPT/HCPCS: 36415; 74018; 74022; 74176; 80048; 80053; 80076; 82800; 82948; 83605; 85007; 85025; 85027; 87040; 93005; 94640; 94667; 94668; 94761; 96365; 96366; 96367; 96372; 96375; 96376; 97110; 97161; 97530; 99285; G0378; J0330; J0665; J1100; J1170; J1335; J1610; J1885; J2405; J2704; J3010; Q9966

== ENCOUNTER 2023-07-27 10:02 | Outpatient (RCR) | payer MEDICARE, SELFPAY ==
[2023-07-27 10:20] VITALS: BP 150/70; PULSE 71; RESP 18; TEMP 36.6; O2SAT 97
--- NOTE | 2023-07-27 10:21 | PC.NURSE ---
1000 Arrival ambulatory for ADRIANO drain removal. Patient alert and oriented. patient denies fever, eating better, bowels moving adequate. has home health follow up scheduled for this tuesday. midline abdomen between umbilicus and symphasis pubis, suture cut, ADRIANO drain intact with tannish drainage on old dressing, dressing removed, suction removed from bulb, ADRIANO removed, approx 12 inches was internally. Bulb approx 10 ml of purulent exudate noted. 4x4 applied to site, secured with tape. Instructed patient he may have some drainage, and to change as needed. Call PCP if any issues arise. Patient verbalized understanding. Released ambulatory
== END 2023-07-27 23:59 | disposition home or self-care (01) ==
LOC: INF 10:02
PROVIDERS: PCP Family Medicine; Visit Provider Family Medicine
DX: K37 Unspecified appendicitis (principal)

== ENCOUNTER 2023-07-29 14:20 | Inpatient (IN) | payer MEDICARE, SELFPAY ==
[2023-07-29] VITALS (23 sets, daily range): BP systolic 96–129; BP diastolic 45–75; PULSE 75–97; RESP 14–27; TEMP 36.8–37.2; O2SAT 93–98; BMI 32.9; BMI 35.4
--- OUTSIDE RECORDS SUMMARY | 2023-07-29 14:41 | XMS_ITS | CCD ---
Author Name Unknown Address [address] [place] [address] Organization [facility] Care Team Providers Care Evp Chief Exploration Officer Name Role Phone Tray Alfaro Primary Care Physician Alicia Perea Unavailable MD Tray Alfaro Primary Care Provider MD Hiral Interiano Admit Provider MD Hiral Interiano Attending Provider ALISHA Mckinley [facility] Other Provider Unavailable DO Lizzy Lin Other [...] Provider MD Kiran Eldridge Jr Other Provider [phone] MD Fátima Ivey Other Provider MD Shaquille [...] DAUGHERTY Consulting Unavailable YOGESH BYERS Consulting Unavailable LIA GALLEGO Consulting Unavailable BRIT, ALICIA Attending Unavailable [...] Unavailable MD Tray Alfaro Primary Care Provider [phone] MD Ni Olivares Attending Provider [phone] Ni OLIVARES P Referring Unavailable COOKRidgeNi P [...] Eruption of skin (disorder) [facility] (13 sources) Penicillin; Translations: [penicillin] Drug Allergy Eruption of skin (disorder) [employer] Other (6 sources) Ciprofloxacin Drug Allergy Unknown [facility] [employer] Other (7 sources) Penicillins; Translations: [Penicillins] Allergy to substance 06-14-20 14 [facility] (1 source) Ciprofloxacin Drug Allergy 09-14-20 20 [facility] (3 sources) levothyroxine; Translations: [levothyroxine] Drug Allergy Swelling of oral cavity structure (finding) [facility] (3 sources) liothyronine; Translations: [liothyronine] Drug Allergy Swelling of oral cavity structure (finding) [facility] (1 source) No Known Medication Allergies; Translations: [No Known Medication Allergies] Propensity to adverse reactions (disorder) [facility]ository (1 source) Ciprofloxacin Drug Allergy 08-13-19 [facility] Repository Medications Current Medications Medication Drug Class(es) Dates Sig (Normalized) Sig (Original) acetaminophen 325 mg / HYDROcodone bitartrate 5 mg oral tablet (1 source) Opioid Agonist Start: 10-07-2022 End: 10-09-2022 acetaminophen-hyd rocodone 325 mg-5 mg oral tablet 1 tab(s), Oral, q4hr Pain for 2 day(s), 7 tab(s), Refill(s) 0, [id number], 175, cm, 09/15/22 5:20:00 EDT, Height/Length Dosing, [...] Status: Ordered take 1 capsule by mo [facility] every twenty-four hours Vitamin D3 125 MCG [...] # 2 cap(s), Refills(s) 0, Pharmacy: [id number], 177, cm, 11/18/22 13:54:00 EDT, Height/Length Dosing, [...] activity, # 30 tab(s), Refills(s) 2, [facility], 174, cm, 08/18/20 12:16:00 EST, Height/Length [...] Date: 04/11/19 Status: Ordered 60 actuat tiotropium 0.00318 mg/actuat inhalation spray (11 sources) Anticholinergic Start: [...] Coronary arteriosclerosis; Translations: [Atherosclerotic heart disease of [place] coronary artery without angina pectoris] Onset: 3 [...] Onset: 10-14-2022 Episodic Other aftercare (1 source) 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; Translations: [SHELTER CURRENT USE OF ASPIRIN] Onset: 08-13-2022 Episodic Other aftercare (1 source) Other prison (current) drug therapy; Translations: [OTH SHELTER CURRENT DRUG THERAPY] Onset: 08-13-2022 Episodic Other [...] Range Facility [facility] 07-05-2023 Lab Reports [id number]#1.00TIFF Normal [facility] Lab Reports [id number]#1.00TIFF Normal [facility] Blood Urea Nitrogenon 2023 Urea nitrogen [Mass/Vol] 31 mg/dL High 7-25 [facility] Comment on above: Performed By: #### L YTES, CA, URIC, PTH, BUN, CREAT ####[facility] [id number] [place] [address] [facility] Calciumon 07-02-2023 Calcium [Mass/Vol] 8.8 mg/dL Normal 8.6-10.3 [facility] Comment on above: Performed By: #### L YTES, CA, URIC, PTH, BUN, CREAT ####[facility] [address] [place] [id number] [facility] Calcium [Mass/volume] in Ser um or PlasmaOrdered By: Ni Olivares on 07-02-2023 Calcium [Mass/Vol] 8.8 mg/dL 8.6-10.3 [facility] Carbon dioxide, total [Moles /volume] in Serum or PlasmaOrdered By: Ni Olivares on 07-02-2023 CO2 [Moles/Vol] 24.0 mmol/L 21.0-31.0 [facility] Chloride [Moles/volume] in S paty or PlasmaOrdered By: Ni Olivares on 07-02-2023 Chloride [Moles/Vol] 107 mmol/L 98-107 [facility] Creatinineon 07-02-2023 Creatinine [Mass/Vol] 2.05 mg/dL High 0.70-1.30 [facility] Comment on above: Performed By: #### L YTES, CA, URIC, PTH, BUN, CREAT ####[place] [address] [place] [address] [place] GFR/1.73 sq M.predicted MDRD (S/P/Bld) [Vol rate/Area] 32.151 mL/min/{1.73_m2} Normal [facility] Comment on above: Performed By: #### L YTES, CA, URIC, PTH, BUN, CREAT ####[place] [address] [place] [address] [facility] Creatinine [Mass/volume] in Serum or PlasmaOrdered By: Ni Olivares on 07-02-2023 Creatinine [Mass/Vol] 2.05 mg/dL 0.70-1.30 [facility] Electrolyteson 07-02-2023 Anion gap [Moles/Vol] 12.0 mmol/L Normal 6.0-15.0 [facility] Comment on above: Performed By: #### L YTES, CA, URIC, PTH, BUN, CREAT ####[address] [address] [facility] Chloride [Moles/Vol] 107 mmol/L Normal 98-107 [facility] Comment on above: Performed By: #### L YTES, CA, URIC, PTH, BUN, CREAT ####[place] [address] [place] [address] [place] CO2 [Moles/Vol] 24.0 mmol/L Normal 21.0-31.0 [facility] Comment on above: Performed By: #### L YTES, CA, URIC, PTH, BUN, CREAT ####[address] [address] [facility] Potassium [Moles/Vol] 5.0 mmol/L Normal 3.5-5.1 [facility] Comment on above: Performed By: #### L YTES, CA, URIC, PTH, BUN, CREAT ####[facility] [place] [address] [facility] Sodium [Moles/Vol] 138 mmol/L Normal 136-145 [facility] Comment on above: Performed By: #### L YTES, CA, URIC, PTH, BUN, CREAT ####[place] [address] [place] [address] [facility] No Panel InformationOrdered By: Ni Olivares on 07-02-2023 Estimated GFR (CKD-EPI) 32.151 mL/Min [facility] Creatinine Clearance (Chem N/A [facility] Parathyrin.intact [Mass/volu me] in Serum or PlasmaOrdered By: Ni Olivares on 07-02-2023 Parathyrin.intact [Mass/Vol] 55.4 pg/mL [facility] Parathyroid Hormone Intacton 07-02-2023 Parathyroid Hormone Intact 55.4 pg/mL Normal [facility] Comment on above: Result Comment: PERF ORMED BY: [facility] [address] [place] [id number] PATHOLOGIST [employer]SEMBL[employer] SUPERVISOR DIANDRA LACY M.D. Performed By: #### L YTES, CA, URIC, PTH, BUN, CREAT ####[place] [address] [place] [address] [facility] Potassium [Moles/volume] in Serum or PlasmaOrdered By: Ni Olivares on 07-02-2023 Potassium [Moles/Vol] 5.0 mmol/L 3.5-5.1 [facility] Serum or plasma anion gap de terminationOrdered By: Ni Olivares on 07-02-2023 Anion gap [Moles/Vol] 12.0 mmol/L 6.0-15.0 [facility] Sodium [Moles/volume] in Ser um or PlasmaOrdered By: Ni Olivares on 07-02-2023 Sodium [Moles/Vol] 138 mmol/L 136-145 [facility] Urate [Mass/volume] in Serum or PlasmaOrdered By: Ni Olivares on 07-02-2023 Urate [Mass/Vol] 8.2 mg/dL 4.4-7.6 [facility] Urea nitrogen [Mass/volume] in Serum or PlasmaOrdered By: Ni Olivares on 07-02-2023 Urea nitrogen [Mass/Vol] 31 mg/dL 7-25 [facility] Uric Acidon 07-02-2023 Urate [Mass/Vol] 8.2 mg/dL High 4.4-7.6 [facility] Comment on above: Result Comment: PERF ORMED BY: [facility] [address] [place] [id number] PATHOLOGIST [employer] ASSEMBL[employer] SUPERVISOR DIANDRA LACY M.D. Performed By: #### L YTES, CA, URIC, PTH, BUN, CREAT ####[place] [address] [place] [address] [facility] Lab Reportson 07-01-2023 Lab Reports [id number]#1.00TIFF Normal [facility] PSA Total (Not a Screen)on 0 06-28-2023 PSA Total (Not a Screen) 4.730 ng/mL High 0.000-4.00 0 [facility] Comment on above: Result Comment: Seri al tumor marker results determined by assays using different manufacturers or methods may not be comparable. [facility] gas inspector and method: [email or web address] DXI, CHEMILUMINESCENT IMMUNOASSAY. PERFORMED BY: [facility] [address] [place] [address] PATHOLOGIST [employer] ASSEMBLY SUPERVISOR DIANDRA LACY M.D. Performed By: #### P SATOTAL ####[place] [address] [place] [address] [facility] Prostate specific Ag [Mass/v olume] in Serum or PlasmaOrdered By: Ni Olivares on 06-28-2023 Prostate specific Ag [Mass/Vol] 4.730 ng/mL 0.000-4.00 0 [facility] Comment on above: Serial tumor marker results determined by assays using different manufacturers or methods may not be comparable.[facility] gas inspector and method:[email or web address] DXI, CHEMILUMINESCENT IMMUNOASSAY. RAD - Ultrasound Reporton RAD - Ultrasound Report [id number]#1.00TIFF Normal [facility] Lab Reportson 06-16-2023 Lab Reports [id number]#1.00TIFF Normal [facility] Lab Reports [id number]#1.00TIFF Normal [facility] Lab Reports [id number]#1.00TIFF Normal [facility] Screenson 06-16-2023 Screens [id number]#1.00TIFF Normal [facility] US renal BIon 06-16-2023 US renal BI [facility] [address] Ultrasound Report Signed Patient: Victorino Smyth MR#: [id number] : 1940 Acct:[id number] Age/Sex: 82 / M ADM Date: 06/16/23 Loc: Room: Type: [facility] Attending Dr: Ni Olivares MD Ordering [...] Rehan Fuentes M.D.06/16/2023 4:02 PM Dictation Location: [place] [address] Tech: Sue hCiu Transcribed By: [facility] 06/16/23 1602 Dictated By: Rehan Fuentes DO 06/16/23 1554 Signed By: 06/16/23 1602 [facility] Ambulatory Visit Summaryon 1 08-15-2022 Ambulatory Visit Summary VICTORINO SMYTH :1940 Visit Date:06/14/2023 Ambulatory Visit Instructions Your Diagnosis Kidney stone BPH with urinary obstruction Prostate cancer Tests Performed Urnls Dip Stick Auto w/o Microscopy POC 50688 US Renal -- Results Pending -- Please [...] CARLOS OLIVEROS, BHUPINDER Merritt When: Where: [address] [place] [address]- Medications What How Much When Instructions Unchanged [...] or concerns Unchanged (more content not included)... [facility] Formson 06-14-2023 Forms [id number]#1.00TIFF [facility] Patient Educationon 06-14-20 23 Patient Education [...] ? 8 oz (237 mL) of milk, isulray-wgbcihfpvcnb-rmztc milk, and calcium-fortifiedfruit juice. Calcium-fortified means that [...] Spinach (cooked), rhubarb, beets, sweet potatoes, and Nigerian chard. ? Peanuts. ? Potato chips, armenian fries, and baked potatoes with skin on. ? Nuts and nut products. ? Chocolate. ? If you regularly take a diuretic medicine, make sure to eat at least 1 or 2 servings of fruits or vegetables that are high in potassium each day. These include: ? Avocado. ? Banana. ? [place], prune, carrot, or tomato juice. ? Baked [...] fish oil, or vitamin B6. ? Take wcsz-ybh-rehxsbb and prescription medicines only as told by your health care provider. These include supplements. What foods sh (more content not included)... Normal [facility] Urology Office/Clinic Noteon 06-14-2023 Urology Office/Clinic [...] with voice recognition artificial intelligence software, specifically [employer], [employer] and or [employer]. Substitutions may have occurred due to the [...] Information CARLOS OLIVEROS, Ni P, URL [address] [place] [address]- Additional Instructions: 1 year Patient Education [...] Hydronephrosis with uretera (more content not included)... [facility] Comment on above: Result Comment: Elec tronically Signed By: Ni OLIVARES MD\.br\Date and Time Signed: 06/14/23 09:55 EST\.br\Electronically Co-Signed By: Dahiana Joseph\.br\Date and Time Co-Signed: 06/14/23 09:48 EST\.br\Electronically Co-Signed By: Dahiana Joseph\.br\Date and Time Co-Signed: 06/14/23 09:50 EST Office Visiton 01-26-2023 Follow-up visit [id number] Ruben Smyth 1940 M Date Provider Department Center 01/26/2023 JENNIFER SMITH FABIOLA Mcneill [facility] Family History Problem Relation Age of Onset No Known Problems Mother No Known Problems Father Family Status - Relation Status Age at Mother Father Level of Service:59834 CA OFFICE/OUTPATIENT ESTABLISHED LOW MDM 20-29 MIN [facility] Consent for Procedure/Surger yon 12-21-2022 Consent for Procedure/Surgery [id number]#1.00CD:127 Normal [facility] IntraOperative Documentson 0 12-21-2022 IntraOperative Documents [id number]#1.00CD:127 [facility] Consent for Treatmenton 11-26 Consent for Treatment [id number]#1.00CD:127 [facility] Inpatient Patient Summaryon 12-20-2022 Inpatient Patient Summary [place] [id number] Clinical Summary Person Information Name: VICTORINO SMYTH Age: 82 Years : 1940 Sex: Male PCP: Tray Alfaro MD Marital Status: Race: White Ethnicity: Non- or Language: Greek Visit Id: Visit Reason: RIGHT KIDNEY STONE Speciality: Acuity: Enc Type: Outpatient Med Service: Surgery Arrival: 12/20/2022 15:00:15 Discharge: Dispo Type: Address: [address] [place] [phone] Provider Notes: Diagnosis: Problems Active Flank pain [...] Follow up: With: Address: When: Ni OLIVARES [address] [place] [address], [address], [place] [address] [facility] (1) Within 6 months Comments: Call [...] Cystoscopy with Stent Removal Discharge Instructions (Custom) [facility] Main OR Intraoperative Recor don 12-20-2022 Main OR Intraoperative Record IntraOp Document Type FTURO Summary Primary Physician: Ni OLIVARES MD Finalized Date/Time: 12/20/22 16:29:12 Pt. Name: VICTORINO SMYTH Bryan RuedaB./Sex: 1940 Male Med Rec #: [id number] Physician: Ni OLIVARES MD Financial #: [id number] Pt. Type: O Room/Bed: / Admit/Disch: 12/20/22 [...] Shabnam Garcia Role Performed Surgeon - Primary Director Of Income Tax - Primary Scrub - Primary Time In [...] 16:24 Maggie Menendez RN 12/20/22 16:29 Normal [facility] Main OR Preoperative Recordo n 12-20-2022 Main OR Preoperative Record Holding Area Document Type FTURO Summary Primary Physician: Ni OLIVARES MD Finalized Date/Time: 12/20/22 15:39:13 Pt. Name: HAJA VICTORINODANYELLE Dubon/Sex: 1940 Male Med Rec #: [id number] Physician: Ni OLIVARES MD Financial #: [id number] Pt. Type: O Room/Bed: / Admit/Disch: 12/20/22 [...] By: Janay Gonzales RN 12/20/22 15:39 Normal [facility] Operative Reporton Operative Report Patient: SHERYL [...] considering a repeat 24-hour urine/metabolic work-up. Normal [facility] Comment on above: Result Comment: Elec tronically Signed By: Ni OLIVARES MD\.br\Date and Time Signed: 12/20/22 16:29 EDT Outpatient Surgery Discharge Instructionon 12-20-2022 Outpatient Surgery Discharge Instruction [place] [id number] Patient Discharge Instructions PERSON INFORMATION Name: VICTORINO [...] up: With: Address: When: Ni OLIVARES [address], [facility] [address] [place] [id number] [facility] (1) Within 6 months Comments: Call [...] a fever over 100 degrees. I, VICTORINO SYMTH, have received the attached patient education materials/instructions [...] to serve you. Thank you for choosing [facility] Normal [facility] Postoperative Documentson Postoperative Documents [id number]#1.00CD:127 Normal [facility] Calculus Analysison 12-09-19 23 Color (Stone) Olsen Invalid Interpretation Code [facility] Comment on above: Performed By: #### 2 [id number] #### [facility] [address] [place] [address] Composition Comment Invalid Interpretation Code [facility] Comment on above: Result Comment: Perc entage (Represents the % composition) Performed By: #### 2 [id number] #### [facility] [address] [place] [address] Disclaimer: Comment Invalid Interpretation Code [facility] Comment on above: Result Comment: This test was developed and its performance characteristics determined by [facility]. It has not been cleared or approved by the Food and Drug Administration. Performed at: [address] [id number] PhD Jarvis Bauman Performed By: #### 2 [id number] #### [facility] [address] [place] [address] Laboratory comment Dangelo (Report) Comment Invalid Interpretation Code [facility] Comment on above: Result Comment: Padmini gutierrez questions regarding Calculi Analysis contact [facility] at: [phone]. Performed By: #### 2 [id number] #### [facility] [address] [place] [address] Please Note: Comment Invalid Interpretation Code [facility] Comment on above: Result Comment: Calc salazar report will follow via computer, mail or c architect delivery. Performed By: #### 2 [id number] #### [facility] [address] [place] [address] Size (Stone) [Entitic vol] 3x5 Invalid Interpretation Code [facility] Comment on above: Result Comment: Mult iple pieces received. Dimensions of the largest piece reported. Performed By: #### 2 [id number] #### [facility] [address] [place] [address] Specimen source subject Nom Comment Invalid Interpretation Code [facility] Comment on above: Result Comment: Righ t Ureter Performed By: #### 2 [id number] #### [facility] [address] [place] [address] Stone Photo Comment Invalid Interpretation Code [facility] Comment on above: Result Comment: Phot ograph will follow under a separate cover Performed By: #### 2 [id number] #### [facility] [address] [place] [address] Urate (Stone) [Mass fraction] 100 % Invalid Interpretation Code [facility] Comment on above: Performed By: #### 2 [id number] #### [facility] [address] [place] [address] Weight (Stone) 131 mg Invalid Interpretation Code [facility] Comment on above: Performed By: #### 2 [id number] #### [facility] [address] [place] [address] Pre-Certification Formon Pre-Certification Form [id number]#1.00CD:127 [facility] IntraOperative Documentson 0 12-06-2022 IntraOperative Documents [id number]#1.00CD:127 [facility] Consent for Anesthesiaon Consent for Anesthesia [id number]#1.00CD:127 [facility] Discharge Instructionson Discharge Instructions [id number]#1.00CD:127 [facility] IntraOperative Documentson 0 12-03-2022 IntraOperative Documents [id number]#1.00CD:127 [facility] IntraOperative Documents [id number]#1.00CD:127 [facility] Main OR Intraoperative Recor don 12-03-2022 Main OR Intraoperative Record [facility] Preoperative Documentson Preoperative Documents [id number]#1.00CD:127 [facility] Preoperative Documents [id number]#1.00CD:127 [facility] Preoperative Documents [id number]#1.00CD:127 [facility] Progress Note-Physicianon Progress Note-Physician Patient: VICTORINO [...] meets criteria ( To home ). Normal [facility] Comment on above: Result Comment: Elec [...] Problems Acute kidney failure / SNOMED CT 29026165 / Confirmed BPH with urinary obstruction / SNOMED CT 2558618901 / Confirmed Chronic obstructive pulmonary disease (COPD) / SNOMED CT 11984510 / Confirmed Coronary artery disease / SNOMED CT 08380572 / Confirmed Anticoagulated / SNOMED CT 018333416 / Confirmed Erectile dysfunction / SNOMED CT 6099013423 / Confirmed Flank pain / SNOMED CT 548824803 / Confirmed H/O: hypothyroidism / SNOMED CT 713670585 / Confirmed Hydronephrosis / SNOMED CT 23991307 / Confirmed Hydronephrosis with ureteral calculus / SNOMED CT 2623249292 / Confirmed Hyperlipidemia / SNOMED CT 80586689 / Confirmed Hyperplastic colon polyp / SNOMED CT 1438309043 / Confirmed Hypertension / SNOMED CT 4712082906 / Confirmed Kidney stone / SNOMED CT 069282857 / Confirmed Prostate cancer / SNOMED CT 1066596165 / Confirmed Myocardial infarct / SNOMED CT 92910445 / Confirmed BPH associated with nocturia / SNOMED CT 8215584794 / Confirmed Occult blood in stools / SNOMED CT 74299583 / Confirmed Postprandial diarrhea / SNOMED CT 93148603 / Confirmed Elevated PSA / SNOMED CT 6602054363 / Confirmed Urinary retention / SNOMED CT 800233175 / Confirmed Rheumatoid arthritis / SNOMED CT 888743463 / Confirmed DM (diabetes mellitus), type 2 / SNOMED CT 348767140 / Confirmed Ureteral stone / SNOMED CT 62908093 / Confirmed Histories Procedure history: ESWL of kidney (06690100) on 10/07/2022 at 82 Years. Transurethral resection of prostate (205888945) on 08/01/2019 at 79 Years. Biopsy of prostate (267649978) on 07/04/2019 at 78 Years. cystoscopy, bilateral, ureteroscopy, laser lithotripsy on 06/27/2019 at 78 Years. TRIGGER FINGER RELEASE. Neuroplasty and/or transposition; median nerve at carpal tunnel (00705). Percutaneous transluminal coronary angioplasty; single major coronary artery or branch (99775). Patient has a coronary artery stent (Peri2) [...] adequate air exchange. Cardiovascular: Regular rhythm. Plan [place] [employer] Anesthesiologists (ASA) physical status classification: Class III. Anesthetic Preoperative Plan: Anesthesia General. Normal [facility] Comment on above: Result Comment: Elec tronically Signed By: Reji Hidalgo DO, Ty Khanna\.br\Date and Time Signed: 12/03/22 08:21 EDT Capillary Glucose POCon Glucose [Mass/Vol] 82 mg/dL Normal 55-99 [facility] Comment on above: Result Comment: Jackelin quach RN/ Performed By: #### 2 [id number] #### [facility] [address] [place] [address] Consent for Procedure/Surger yon 12-02-2022 Consent for Procedure/Surgery [id number]#1.00CD:127 Normal [facility] Consent for Treatmenton Consent for Treatment [id number]#1.00CD:127 Normal [facility] Discharge Instructionson Discharge Instructions VICTORINO SMYTH [...] When: Comments: Call for followup appointment Where: [facility] [address] [address]- Business (1) Medications What How Much When Instructions Next Dose New doxycycline (doxycycline hyclate 100 mg Cap) 1 Capsules By Mouth 2 times a day Duration: 5 Days Pickup at [facility] #65505 Unchanged albuterol (Ventolin Diskus) 2 Puffs Inhalation [...] needed for Itching Pharmacy Information [id number]: [address], [place] [id number] [phone] Allergies ciprofloxacin (Rash) levothyroxine (Mouth swelling) liothyronine (Mouth (more content not included)... Normal [facility] Comment on above: Result Comment: Elec tronically Signed By: Shae BRITO, Jazmin Eli\.ruba\Date and Time Signed: 12/02/22 12:25 EDT H&P Updateon 12-02-2022 H&P Update [id number]#1.00CD:127 Normal [facility] Inpatient Patient Summaryon 12-02-2022 Inpatient Patient Summary [address] [address] [facility] Clinical Discharge Instructions PERSON INFORMATION Name: VICTORINO SMYTH PHYSICIANS Admitting Physician: Ni OLIVARES MD Attending Physician: Ni OLIVARES MD PCP: Tray Alfaro MD Discharge Diagnosis: Comment: PATIENT EDUCATION INFORMATION Instructions: Sppb-Dtbm-ew Utereroscopy,Lithotripsy, Stone Extraction, Stent Placement (Custom) Medication Leaflets: Follow up: With: Address: When: Ni OLIVARES [address] [place] [address], [address], [place] [id number] [facility] (1) Comments: Call for followup appointment MEDICATION LIST New Medications [id number], [address], [place] [id number], [phone] doxycycline (doxycycline hyclate 100 mg Cap) 1 [...] apply to chin, and forhead Comment: Is[facility] Main OR PACU I Recordon Main OR PACU I Record PACU Phase I Docum ent Type FT Summary Primary Physician: Ni OLIVARES MD Finalized Date/Time: 12/02/22 12:58:10 Pt. Name: VICTORINO SMYTH Bryan Chatman./Sex: 1940 Male Med Rec #: [id number] Physician: Ni OLIVARES MD Financial #: [id number] Pt. Type: A Room/Bed: [facility] Admit/Disch: 12/02/22 09:31:57 - Institution: Case [...] By: Piedad Blanco RN 12/02/22 12:58 Normal [facility] Main OR PACU II Recordon Main OR PACU II Record PACU Phase II Doc ument Type FT Summary Primary Physician: Ni OLIVARES MD Finalized Date/Time: 12/02/22 13:45:57 Pt. Name: SMYTHVICTORINO./Sex: 1940 Male Med Rec #: [id number] Physician: Ni OLIVARES MD Financial #: [id number] Pt. Type: A Room/Bed: [facility] Admit/Disch: 12/02/22 09:31:57 - Institution: Case [...] By: Jazmin Kaufman RN 12/02/22 13:45 Normal [facility] Main OR Preoperative Recordo n 12-02-2022 Main OR Preoperative Record PreOp Document Type FT Summary Primary Physician: Ni OLIVARES MD Finalized Date/Time: 12/02/22 11:00:33 Pt. Name: SMYTHVICTORINO./Sex: 1940 Male Med Rec #: [id number] Physician: Ni OLIVARES MD Financial #: [id number] Pt. Type: Room/Bed: [place] [address] Admit/Disch: 12/02/22 09:31:57 - Institution: Case Times [...] By: Soraya Borrego RN 12/02/22 11:00 Normal [facility] Monitor Recordon 12-02-2022 Monitor Record [id number]:127 Normal [facility] Monitor Record [id number]#[id number]:127 Normal [facility] Operative Reporton 3 Operative Report Patient: [...] jelly placed per urethra. A well-lubricated 22 [place] is urethroscope with 30 degree lens then [...] backloaded over the wire and a 4.7 [place] Bard inlay double-J stent is passed into [...] ml. Complications: None. Anesthesia type: General. Normal [facility] Comment on above: Result Comment: Elec tronically Signed By: Ni OLIVARES MD\.br\Date and Time Signed: 12/02/22 11:51 EDT Outpatient Surgery Discharge Instructionon 12-02-2022 Outpatient Surgery Discharge Instruction [place] [id number] Patient Discharge Instructions PERSON INFORMATION Name: VICTORINO [...] Follow up: With: Address: When: Ni OLIVARES [address] [place] [address], [address], [place] [phone] [facility] (1) Comments: Call for followup appointment Pharmacy Information: You may receive a survey from [facility] asking you to rate your care experience. Your feedback is important and will help us understand what we do well and how we can improve the quality of care we provide to you, your loved ones and our community. It?s an honor to serve you. Thank you for choosing [facility] HERE ARE THE MEDICATION CHANGES THAT OCCURRED DURING YOUR HOSPITAL STAY New Medications [id number], [address], [place] [id number], [phone] doxycycline (doxycycline hyclate 100 mg Cap) 1 [...] forhead PATIENT EDUCATION INFORMATION Instructions: [facility] [place], [place] Dr. Ni Omalley Post-operative Instructions for [...] swelling, kidn (more content not included)... Normal [facility] Patient Education - Texton 0 12-02-2022 [...] MDI an (more content not included)... Normal [facility] XR Abdomen 1 Viewon 12-03-19 23 [...] in mGy = na DAP = na [facility] Consultation Noteon 11-29-19 Consultation Note [id number]#1.00CD:127 [facility] Outside Recordson 11-24-2022 Outside Records [id number]#[id number]:127 [facility] C Urineon 11-20-2022 Bacteria identified Cx [...] Locations R1: This test was performed at: [facility], [address] [place] [address], [address] , [place], [facility] Comment on above: Performed By: #### 1 [id number], [id number] ####[facility] [address] [place] [address] Albuminon 11-18-2022 Albumin [Mass/Vol] 4.0 g/dL Normal 3.3-5.0 [facility] Comment on above: Performed By: #### 2 519291, 8293642, 2930657, 56564129, 860450043, 7416686, 8512802, 1374152, 9298912 ####[facility] [address] [place] [address] Auto Diffon 11-18-2022 Basophils/100 WBC (Bld) 0.2 % Normal 0.0-2.0 [facility] Comment on above: Order Comment: Order Added by Discern Expert. Performed By: #### 2 [id number] #### [facility] [address] [place] [address] Basophils/Leukocytes Auto (Bld) [Pure # fraction] 0.0 E9/L Normal 0.0-0.2 [facility] Comment on above: Order Comment: Order Added by Discern Expert. Performed By: #### 2 [id number] #### [facility] [address] [place] [address] Eosinophils/100 WBC (Bld) 0.1 % Normal 0.0-8.0 [facility] Comment on above: Order Comment: Order Added by Discern Expert. Performed By: #### 2 [id number] #### [facility] [address] [place] [address] Eosinophils/Leukocytes Auto (Bld) [Pure # fraction] 0.0 E9/L Normal 0.0-0.5 [facility] Comment on above: Order Comment: Order Added by Discern Expert. Performed By: #### 2 [id number] #### [facility] [address] [place] [address] Lymphocytes/100 WBC (Bld) 8.6 % Low 14.0-50.0 [facility] Comment on above: Order Comment: Order Added by Discern Expert. Performed By: #### 2 [id number] #### [facility] [address] [place] [address] Lymphocytes/Leukocytes Auto (Bld) [Pure # fraction] 0.9 E9/L Low 1.0-4.0 [facility] Comment on above: Order Comment: Order Added by Discern Expert. Performed By: #### 2 [id number] #### [facility] [address] [place] [address] Monocytes/100 WBC (Bld) 7.1 % Normal 4.0-14.0 [facility] Comment on above: Order Comment: Order Added by Discern Expert. Performed By: #### 2 [id number] #### [facility] [address] [place] [address] Monocytes/Leukocytes Auto (Bld) [Pure # fraction] 0.7 E9/L Normal 0.2-1.0 [facility] Comment on above: Order Comment: Order Added by Discern Expert. Performed By: #### 2 [id number] #### [facility] [address] [place] [address] Neutrophils/100 WBC (Bld) 84.0 % High 36.0-75.0 [facility] Comment on above: Order Comment: Order Added by Discern Expert. Performed By: #### 2 [id number] #### [facility] [address] [place] [address] Neutrophils/Leukocytes Auto (Bld) [Pure # fraction] 8.7 E9/L High 2.0-7.5 [facility] Comment on above: Order Comment: Order Added by Discern Expert. Performed By: #### 2 [id number] #### [facility] [address] [place] [address] BMP 11-18-2022 Anion gap [Moles/Vol] 12 mmol/L Normal 6-16 [facility] [place] [facility] Comment on above: Performed By: #### 2 [id number] #### [facility] [address] [place] [address] Calcium [Mass/Vol] 9.3 mg/dL Normal 8.9-11.1 [facility] Comment on above: Performed By: #### 2 [id number] #### [facility] [address] [place] [address] Chloride [Moles/Vol] 109 mmol/L Normal 101-[address] [facility] Comment on above: Performed By: #### 2 [id number] #### [facility] [address] [place] [address] CO2 [Moles/Vol] 24 mmol/L Normal 21-31 [facility] Comment on above: Performed By: #### 2 09608969 #### [facility] [address] [place] [address] Creatinine [Mass/Vol] 2.5 mg/dL High 0.5-1.3 [facility] [place] [facility] Comment on above: Performed By: #### 2 [id number] #### [facility] [address] [place] [address] Glucose [Mass/Vol] 130 mg/dL Normal 55-199 [facility] Comment on above: Result Comment: If t his glucose result represents a fasting glucose, interpretation should refer to the following reference range: 55-99 mg/dL Performed By: #### 2 [id number] #### [facility] [address] [place] [address] Potassium [Moles/Vol] 4.8 mmol/L Normal 3.5-5.3 [facility] [place] [facility] Comment on above: Performed By: #### 2 [id number] #### [facility] [address] [place] [address] Sodium [Moles/Vol] 140 mmol/L Normal 135-145 [facility] Comment on above: Performed By: #### 2 [id number] #### [facility] [address] [place] [address] Urea nitrogen [Mass/Vol] 38 mg/dL High 5-21 [facility] Comment on above: Performed By: #### 2 04485165 #### [facility] [address] [place] [address] Urea nitrogen/Creatinine [Mass ratio] 15 No Units Normal 10-20 [facility] Comment on above: Performed By: #### 2 [id number] #### [facility] [address] [place] [address] CBC w/ Auto Diffon 05-25-202 3 Erythrocyte distribution width (RBC) [Ratio] 13.5 % Normal 10.9-14.2 [facility] Comment on above: Performed By: #### 2 [id number] #### [facility] [address] [place] [address] Hematocrit (Bld) [Volume fraction] 34.9 % Low 37.7-49.0 [facility] Comment on above: Performed By: #### 2 [id number] #### [facility] [address] [place] [address] Hemoglobin (Bld) [Mass/Vol] 11.7 g/dL Low 13.5-17.5 [facility] Comment on above: Performed By: #### 2 [id number] #### [facility] [address] [place] [address] MCH (RBC) [Entitic mass] 32.1 pg Normal 27.0-34.0 [facility] Comment on above: Performed By: #### 2 [id number] #### [facility] [address] [place] [address] MCHC (RBC) [Mass/Vol] 33.6 g/dL Normal 31.4-36.0 [facility] [place] [facility] Comment on above: Performed By: #### 2 [id number] #### [facility] [address] [place] [address] MCV (RBC) [Entitic vol] 95.4 fL Normal 80.0-100.0 [facility] Comment on above: Performed By: #### 2 [id number] #### [facility] [address] [place] [address] Platelet mean volume (Bld) [Entitic vol] 8.7 fL Normal 6.4-10.8 [facility] Comment on above: Performed By: #### 2 [id number] #### [facility] [address] [place] [address] Platelets (Bld) [#/Vol] 214.0 E9/L Normal 150.0-500. 0 [facility] Comment on above: Performed By: #### 2 50750939 #### [facility] [address] [place] [address] RBC (Bld) [#/Vol] 3.7 E12/L Low 4.3-5.9 [facility] Comment on above: Performed By: #### 2 01257346 #### [facility] [address] [place] [address] WBC corrected for nucl RBC Auto (Bld) [#/Vol] 10.4 E9/L Normal 4.0-11.0 [facility] Comment on above: Performed By: #### 2 [id number] #### [facility] [address] [place] [address] Consent for Treatmenton 10-26 Consent for Treatment [id number]#[id number]:127 Normal [facility] Consent for Treatment [id number]#1.00CD:127 Normal [facility] Ferritinon 11-18-2022 Ferritin [Mass/Vol] 192 ng/mL Normal 24-336 [facility] Comment on above: Result Comment: NORM ALS MEN <30 YRS 16-132 ng/mL MEN >30 YRS 8-338 ng/mL WOMEN (PREMEN) 6-104 ng/mL WOMEN (POSTMEN) 12-210 ng/mL Performed By: #### 2 206784, 6396202, 2958571, 89234595, 285951726, 3731984, 2367478, 8544512, 4164916 ####[facility] [address] [place] [address] Folateon 11-18-2022 Folate [Mass/Vol] ng/mL Normal >=6.7 [facility] Comment on above: Performed By: #### 2 386472, 7569161, 7393337, 78892663, 601080146, 3995814, 7710410, 2563093, 0289121 ####[facility] [address] [place] [address] Ironon 11-18-2022 Iron [Mass/Vol] 102 microgram/dL Normal 35-153 [facility] Comment on above: Performed By: #### 2 279028, 8608038, 1835123, 10693026, 811739594, 3274062, 6683519, 2787619, 6453586 ####[facility] [address] [place] [address] PT & PTTon 11-18-2022 aPTT Coag (PPP) [Time] 27.1 second(s) Normal 25.1-36.5 [facility] Comment on above: Result Comment: Para [...] the same coagulation reagent and instrumentation as [facility]. Currently there are no coagulation studies available worldwide for children to 14 days, and no normal ranges. Heparin therapeutic range (represented by Anti-Factor Xa activity of 0.2 - 0.4 U/mL) corresponds to PTT of 56.6 - 109.0 sec. Performed By: #### 2 [id number] #### [facility] [address] [place] [address] INR Coag (PPP) [Relative time] 1.1 {INR} Invalid Interpretation Code [facility] Comment on above: Result Comment: INR results are specifically intended to assess patients stabilized on long-term Anticoagulation therapy suggested INR?s ?Less Intensive Anticoagulation? 2.0 ? 3.0 Conventional Range 3.0 ? 4.5 Performed By: #### 2 [id number] #### [facility] [address] [place] [address] PT Coag (PPP) [Time] 11.9 second(s) Normal 9.4-12.5 [facility] Comment on above: Result Comment: 15 [...] the same coagulation reagent and instrumentation as [facility]. Currently there are no coagulation studies available worldwide for children to 14 days, and no normal ranges. Performed By: #### 2 [id number] #### [facility] [address] [place] [address] Phosphoruson 11-18-2022 Phosphate [Mass/Vol] 4.4 mg/dL Normal 1.9-4.[address] [facility] Comment on above: Performed By: #### 2 628544, 0843920, 5668167, 33410827, 591848850, 7193451, 6829297, 9324512, 4086277 ####[facility] [address] [place] [address] Physician Orderon 11-18-2022 Physician Order [id number]#[id number]:127 Normal [facility] TIBC Calculatedon 11-18-2022 Iron binding capacity [Mass/Vol] 292 microgram/dL Normal 250-400 [facility] Comment on above: Performed By: #### 2 849398, 9536136, 7808797, 74983927, 149957523, 6460602, 7157435, 2316755, 7898909 ####[facility] [address] [place] [address] Transferrin [Mass/Vol] 208 mg/dL Normal 200-370 [facility] Comment on above: Performed By: #### 2 404551, 0627538, 5908615, 95176291, 529700719, 4259805, 8855319, 5925747, 7240286 ####[facility] [address] [place] [address] U Protein/Creat Ratioon 10-26 Albumin Elph (U) [Mass fraction] 25.2 mg/dL Invalid Interpretation Code [facility] Comment on above: Result Comment: The reference range and other method performance specifications have not been established for this test; results should be integrated into the clinical context for interpretation. Performed By: #### 1 [id number] #### [facility] [address] [place] [address] Creatinine (U) [Mass/Vol] 80.6 mg/dL Invalid Interpretation Code [facility] Comment on above: Result Comment: The reference range and other method performance specifications have not been established for this test; results should be integrated into the clinical context for interpretation. Performed By: #### 1 [id number] #### [facility] [address] [place] [address] U Prot/Creat Ratio 312.70 mg/gm Cr High .00-200.00 F [facility] Comment on above: Performed By: #### 1 [id number] #### [facility] [address] [place] [address] UA With Cult Reflexon 2022 Bilirubin Ql (U) Negative Normal Negative [facility] Comment on above: Performed By: #### 1 0240100, 9916156 #### [facility] [address] [place] [address] Clarity (U) CLEAR Normal Clear [facility] Comment on above: Performed By: #### 1 2716673, 9899791 #### [facility] [address] [place] [address] Color (U) YELLOW Normal Yellow [facility] Comment on above: Performed By: #### 1 0130516, 7304542 #### [facility] [address] [place] [address] Epithelial cells.squamous LM.HPF (Urine sed) [#/Area] 0-2 Normal 0-2 [facility] Comment on above: Performed By: #### 1 1344681, 4986097 #### [facility] [address] [place] [address] Glucose Test strip (U) [Mass/Vol] Negative Normal Negative [facility] Comment on above: Performed By: #### 1 2275017, 5908630 #### [facility] [address] [place] [address] Hemoglobin Ql (U) 3+ Abnormal Negative [facility] Comment on above: Performed By: #### 1 0023685, 7468469 #### [facility] [address] [place] [address] Ketones (U) [Mass/Vol] Negative Normal Negative [facility] Comment on above: Performed By: #### 1 2777020, 4286034 #### [facility] [address] [place] [address] [place].plasma/[place] .RBC (Bld) [Mass ratio] >30 Abnormal 0-3 [facility] Comment on above: Performed By: #### 1 9821682, 2079822 #### [facility] [address] [place] [address] Nitrite Ql (U) Negative Normal Negative [facility] Comment on above: Performed By: #### 1 1637208, 4927316 #### [facility] [address] [place] [address] pH (U) 6.0 [pH] Invalid Interpretation Code 5.0-9.0 [facility] Comment on above: Performed By: #### 1 7553760, 6189550 #### [facility] [address] [place] [address] Protein (U) [Mass/Vol] TRACE Abnormal Negative [facility] Comment on above: Performed By: #### 1 0231298, 7024812 #### [facility] [address] [place] [address] Specific gravity (U) [Rel density] 1.020 Invalid Interpretation Code 1.005-1.03 0 [facility] Comment on above: Performed By: #### 1 7696268, 6700357 #### [facility] [address] [place] [address] Type of Urine collection method Clean Catch Normal [facility] Comment on above: Performed By: #### 1 6348885, 3013895 #### [facility] [address] [place] [address] Urobilinogen Qn (U) 0.2 {Wil'U}/dL Normal 0.0-1.0 [facility] Comment on above: Performed By: #### 1 5446581, 2409699 #### [facility] [address] [place] [address] WBC Auto Ql (U) 1+ Abnormal Negative [facility] Comment on above: Performed By: #### 1 8497089, 6761872 #### [facility] [address] [place] [address] WBC LM.HPF (Urine sed) [#/Area] 0-5 Normal 0-5 [facility] Comment on above: Performed By: #### 1 2994575, 4524097 #### [facility] [address] [place] [address] Uric Acidon 11-18-2022 Urate [Mass/Vol] 7.0 mg/dL Normal 2.2-7.4 [facility] Comment on above: Performed By: #### 2 614294, 2006307, 2556933, 40647210, 143294174, 9618870, 1594817, 1031797, 1774037 ####[facility] [address] [place] [address] Vit B12on 11-18-2022 Cobalamin (Vitamin B12) [Mass/Vol] 495 pg/mL Normal 50-1500 [facility] Comment on above: Performed By: #### 2 820935, 2691348, 3891939, 32557188, 664081253, 6726830, 9859855, 2278036, 3331025 ####[facility] [address] [place] [address] Vitamin D 25 Hydroxyon 11-18 25-hydroxyvitamin D3 [Mass/Vol] 64.8 ng/mL Normal 30.0-100.0 [facility] Comment on above: Result Comment: Vit grewal D deficiency has been defined as a level of serum 25-OH vitamin D less than 20 ng/mL (1,2) by the [place] of [employer] and an Endocrine Society practice guideline. The Endocrine Society further defined vitamin D insufficiency as a level between 21 and 29 ng/mL (2). 1. IOM ([place] of [employer]). 2010. Dietary reference intakes for calcium and D. [place]: The National Academies Press. 2. Kortney MF, Candie [place], Ekaterina WEINBERG, et al. Evaluation, treatment, and prevention of vitamin D deficiency: an Endocrine Society clinical practice guideline. JCEM. 2010; 96 (7):1911-30. Performed By: #### 2 234897, 1028752, 0123914, 94241198, 708083977, 4779023, 9770723, 1490792, 8808380 ####[facility] [address] [place] [address] eGFRon 11-18-2022 GFR/1.73 sq M.predicted among non-blacks MDRD (S/P/Bld) [Vol rate/Area] 25 mL/min/1.73 m2 Low >=59 [facility] Comment on above: Order Comment: Order added by Discern Expert. Result Comment: Company Doctor christa kidney disease could be indicated at eGFR's of less than 60 mL/min/1.73m2. Kidney failure is indicated at less than 15 mL/min/1.73m2. Performed By: #### 2 64580330 #### [facility] [address] [place] [address] Office Visiton 11-17-2022 Follow-up visit [id number] Ruben Smyth 1940 M Date Provider Department Center 11/17/2022 IRIS BLACKMAN [facility] Family History Problem Relation Age of Onset No Known Problems Mother No Known Problems Father Family Status - Relation Status Age at Mother Father Level of Service:78264 [place] OFFICE/OUTPATIENT ESTABLISHED MOD MDM 30-39 MIN Normal [facility] Lab Reportson 11-12-2022 Lab Reports [id number]#[id number]:127 Normal [facility] Lab Reports [id number]#[id number]:127 Normal [facility] Lab Reports [id number]#[id number]:127 Normal [facility] Lab Reports [id number]#[id number]:127 Normal [facility] PSA, FREE AND TOTAL RATIOon 11-09-2022 % Free PSA 11.3 % Normal [facility] Comment on above: Result Comment: The [...] By: #### P SAFREE #### [facility] [address] [place] [address] Dr. Alicia Patel Prostate specific Ag [Mass/Vol] 4.6 ng/mL Critically high 0.0-4.0 [facility] Comment on above: Result Comment: Dwight CARRILLOIA methodology. . According to the [place] [employer], Serum PSA should decrease and [...] By: #### P SAFREE #### [facility] [address] [place] [address] Dr. Alicia Patel PSA, Free 0.52 ng/mL Normal N/A [facility] Comment on above: Result Comment: Dwight JUAREZ methodology. Performed By: #### P SAFREE #### [facility] [address] [place] [address] Dr. Alicia Patel INSULINon 11-08-2022 Insulin 18.5 uIU/mL Normal 2.6-24.9 [facility] Comment on above: Performed By: #### T SH, LIPID, T4, FT3, CMP #### [facility] [address] [place] [address] Dr. Alicia Patel CBC AUTO DIFFon 11-06-2022 BASO # 0.0 103/ul Normal 0.0-0.1 [facility] Comment on above: Performed By: #### C BC #### [facility] [address] [place] [address] Dr. Alicia Patel Basophils/100 WBC (Bld) 0.4 % Normal 0.2-2.0 [facility] Comment on above: Performed By: #### C BC #### [facility] [address] [place] [address] Dr. Alicia Patel EO # 0.2 103/ul Normal 0.0-0.[address] [facility] Comment on above: Performed By: #### C BC #### [facility] [address] [place] [address] Dr. Alicia Patel Eosinophils/100 WBC (Bld) 4.6 % Normal 0.9-7.0 [facility] Comment on above: Performed By: #### C BC #### [facility] [address] [place] [address] Dr. Alicia Patel Erythrocyte distribution width (RBC) [Ratio] 13.2 % Normal 11.0-15.0 [facility] Comment on above: Performed By: #### C BC #### [facility] [address] [place] [address] Dr. Alicia Patel Hematocrit (Bld) [Volume fraction] 34.6 % Critically low 42.0-54.0 [facility] Comment on above: Performed By: #### C BC #### [facility] [address] [place] [address] Dr. Alicia Patel Hemoglobin (Bld) [Mass/Vol] 11.4 g/dL Critically low 14.0-18.0 [facility] Comment on above: Performed By: #### C BC #### [facility] [address] [place] [address] Dr. Alicia Patel IG # 0.03 10e3/ul Normal 0.00-0.03 [facility] Comment on above: Performed By: #### C BC #### [facility] [address] [place] [address] Dr. Alicia Patel IG % 0.6 % Critically high 0.0-0.5 [facility] Comment on above: Performed By: #### C BC #### [facility] [address] [place] [address] Dr. Alicia Patel LYMPH # 0.9 103/ul Critically low 1.2-3.8 [facility] Comment on above: Performed By: #### C BC #### [facility] [address] [place] [address] Dr. Alicia Patel Lymphocytes/100 WBC (Bld) 16.3 % Critically low 20.5-60.0 [facility] Comment on above: Performed By: #### C BC #### [facility] [address] [place] [address] Dr. Alicia Patel MANUAL DIFF REQ NO Normal [facility] Comment on above: Performed By: #### C BC #### [facility] [address] [place] [address] Dr. Alicia Patel MCH (RBC) [Entitic mass] 32.9 pg Normal 25.9-34.0 [facility] Comment on above: Performed By: #### C BC #### [facility] [address] [place] [address] Dr. Alicia Patel MCHC (RBC) [Mass/Vol] 32.9 g/dL Normal 29.9-35.2 [facility] Comment on above: Performed By: #### C BC #### [facility] [address] [place] [address] Dr. Alicia Patel MCV (RBC) [Entitic vol] 99.7 fL Critically high 80.0-94.0 [facility] Comment on above: Performed By: #### C BC #### [facility] [address] [place] [address] Dr. Alicia Patel MONO # 0.6 103/ul Normal 0.3-0.8 [facility] Comment on above: Performed By: #### C BC #### [facility] [address] [place] [address] Dr. Alicia Patel Monocytes/100 WBC (Bld) 12.0 % Normal 1.7-12.0 [facility] Comment on above: Performed By: #### C BC #### [facility] [address] [place] [address] Dr. Alicia Patel NEUT # 3.5 103/ul Normal 1.4-6.5 [facility] Comment on above: Performed By: #### C BC #### [facility] [address] [place] [address] Dr. Alicia Patel Neutrophils/100 WBC (Bld) 66.1 % Normal 43.0-75.[address] [facility] Comment on above: Performed By: #### C BC #### [facility] [address] [place] [address] Dr. Alicia Patel Platelet mean volume (Bld) [Entitic vol] 10.1 fL Normal 9.5-13.5 [facility] Comment on above: Performed By: #### C BC #### [facility] [address] [place] [address] Dr. Alicia Patel PLT 168 103/ul Normal 150-450 [facility] Comment on above: Performed By: #### C BC #### [facility] [address] [address] [address] Alicia Patel RBC 3.47 106/ul Critically low 4.70-6.10 [facility] Comment on above: Performed By: #### C BC #### [facility] [address] [address] [address] Alicia Patel WBC 5.2 103/ul Normal 4.0-11.0 [facility] Comment on above: Performed By: #### C BC #### [facility] [address] [address] [address] Alicia Patel FREE T3on 11-06-2022 FREE T3 2.78 pg/mlL Normal 2.18-3.98 [facility] Comment on above: Performed By: #### U RTPCR #### [facility] [address] [place] [address] Dr. Alicia Patel GLYCOHEMOGLOBIN A1Con 2022 ADA RECOMMENDATION SEE BELOW Normal [facility] Comment on above: Result Comment: ADA RECOMMENDED LIMIT 4.0 - 6.0 ADA THERAPEUTIC TARGET < 7.0 ACTION SUGGESTED > 7.0 Performed By: #### T SH, LIPID, T4, FT3, CMP #### [facility] [address] [address] [address] Alicia Patel Glucose [Mass/Vol] 120 mg/dL Normal [facility] Comment on above: Performed By: #### T SH, LIPID, T4, FT3, CMP #### [facility] [address] [place] [address] Dr. Alicia Patel HbA1c (Bld) [Mass fraction] 5.8 % Normal 4.5-6.[address] [facility] Comment on above: Performed By: #### T SH, LIPID, T4, FT3, CMP #### [facility] [address] [place] [address] Dr. Alicia Patel LIPID PROFILEon 11-06-2022 CHOL-HDL RATIO NORM SEE BELOW Normal [facility] Comment on above: Result Comment: 3.3 - 4.4 LOW RISK 4.4 - 7.1 AVERAGE RISK 7.1 - 11.0 MODERATE RISK >11.0 HIGH RISK Performed By: #### U RTPCR #### [facility] [address] [address] [address] Alicia Patel Cholesterol [Mass/Vol] 107 mg/dL Normal <=200 [facility] Comment on above: Performed By: #### U RTPCR #### [facility] [address] [address] [address] Alicia Patel Cholesterol in HDL [Mass/Vol] 34 mg/dL Critically low 40-60 [facility] Comment on above: Performed By: #### U RTPCR #### [facility] [address] [place] [address] Dr. Alicia Patel Cholesterol in LDL [Mass/Vol] 58.8 mg/dL Normal [facility] Comment on above: Performed By: #### U RTPCR #### [facility] [address] [place] [address] Dr. Alicia Patel Cholesterol.total/Chol esterol in HDL [Mass ratio] 3.1 {ratio} Normal [facility] Comment on above: Performed By: #### U RTPCR #### [facility] [address] [place] [address] Dr. Alicia Patel HDL NORMAL > or = 60 mg/dl - LO W CARDIOVASCULAR RISK <40 mg/dl - HIGH CARDIOVASCULAR RISK Normal [facility] Comment on above: Performed By: #### U RTPCR #### [facility] [address] [address] [address] Alicia Patel LDL CALC NORMAL SEE BELOW Normal [facility] Comment on above: Result Comment: <100 mg/dl OPTIMAL 100 - 129 mg/dl NEAR OR ABOVE OPTIMAL 130 - 159 mg/dl BORDERLINE HIGH 160 - 189 mg/dl HIGH >190 mg/dl VERY HIGH Performed By: #### U RTPCR #### [facility] [address] [place] [address] Dr. Alicia Patel Triglyceride [Mass/Vol] 71 mg/dL Normal <=150 [facility] Comment on above: Performed By: #### U RTPCR #### [facility] [address] [place] [address] Dr. Alicia Patel VLDL CALC 14.2 mg/dL Normal [facility] Comment on above: Performed By: #### U RTPCR #### [facility] [address] [place] [address] Dr. Alicia Patel PROF 14(COMP METB)on 023 Albumin [Mass/Vol] 3.4 g/dL Normal 3.4-5.0 [facility] Comment on above: Performed By: #### T SH, LIPID, T4, FT3, CMP #### [facility] [address] [place] [address] Dr. Alicia Patel Albumin/Globulin [Mass ratio] 0.9 {ratio} Normal [facility] Comment on above: Performed By: #### T SH, LIPID, T4, FT3, CMP #### [facility] [address] [place] [address] Dr. Alicia Patel ALP [Catalytic activity/Vol] 75 U/L Normal 46-116 [facility] Comment on above: Performed By: #### T SH, LIPID, T4, FT3, CMP #### [facility] [address] [place] [address] Dr. Alicia Patel ALT [Catalytic activity/Vol] 31 U/L Normal 16-63 [facility] Comment on above: Performed By: #### T SH, LIPID, T4, FT3, CMP #### [facility] [address] [place] [address] Dr. Alicia Patel Anion gap [Moles/Vol] 14.4 mmol/L Normal [facility] Comment on above: Performed By: #### T SH, LIPID, T4, FT3, CMP #### [facility] [address] [place] [address] Dr. Alicia Patel AST [Catalytic activity/Vol] 23 U/L Normal 15-37 [facility] Comment on above: Performed By: #### T SH, LIPID, T4, FT3, CMP #### [facility] [address] [place] [address] Dr. Alicia Patel Bilirubin [Mass/Vol] 0.5 mg/dL Normal 0.2-1.[address] [facility] Comment on above: Performed By: #### T SH, LIPID, T4, FT3, CMP #### [facility] [address] [place] [address] Dr. Alicia Patel Calcium [Mass/Vol] 8.8 mg/dL Normal 8.5-10.[address] [facility] Comment on above: Performed By: #### T SH, LIPID, T4, FT3, CMP #### [facility] [address] [place] [address] Dr. Alicia Patel Chloride [Moles/Vol] 110 mmol/L Critically high 98-[address] [facility] Comment on above: Performed By: #### T SH, LIPID, T4, FT3, CMP #### [facility] [address] [place] [address] Dr. Alicia Patel CO2 [Moles/Vol] 24.2 mmol/L Normal 21.0-32.[address] [facility] Comment on above: Performed By: #### T SH, LIPID, T4, FT3, CMP #### [facility] [address] [place] [address] Dr. Alicia Patel Creatinine [Mass/Vol] 2.41 mg/dL Critically high 0.70-1.[address] [facility] Comment on above: Performed By: #### T SH, LIPID, T4, FT3, CMP #### [facility] [address] [place] [address] Dr. Alicia Patel EGFR-AF SENEGALESE 32 mL/min/1.73m2 Critically low >=[address] [facility] Comment on above: Performed By: #### T SH, LIPID, T4, FT3, CMP #### [facility] [address] [place] [address] Dr. Alicia Patel EGFR-NON AF SENEGALESE 26 mL/min/1.73m2 Critically low >=60 [facility] Comment on above: Performed By: #### T SH, LIPID, T4, FT3, CMP #### [facility] [address] [place] [address] Dr. Alicia Patel Globulin (S) [Mass/Vol] 3.6 g/dL Normal [facility] Comment on above: Performed By: #### T SH, LIPID, T4, FT3, CMP #### [facility] [address] [place] [address] Dr. Alicia Patel Glucose [Mass/Vol] 72 mg/dL Critically low 74-[address] [facility] Comment on above: Performed By: #### T SH, LIPID, T4, FT3, CMP #### [facility] [address] [address] [address] Alicia Patel Potassium [Moles/Vol] 4.6 mmol/L Normal 3.5-5.1 [facility] Comment on above: Performed By: #### T SH, LIPID, T4, FT3, CMP #### [facility] [address] [place] [address] Dr. Alicia Patel Protein [Mass/Vol] 7.0 g/dL Normal 6.4-8.[address] [facility] Comment on above: Performed By: #### T SH, LIPID, T4, FT3, CMP #### [facility] [address] [place] [address] Dr. Alicia Patel Sodium [Moles/Vol] 144 mmol/L Normal 136-145 [facility] Comment on above: Performed By: #### T SH, LIPID, T4, FT3, CMP #### [facility] [address] [place] [address] Dr. Alicia Patel Urea nitrogen [Mass/Vol] 32.0 mg/dL Critically high 7.0-18.0 [facility] Comment on above: Performed By: #### T SH, LIPID, T4, FT3, CMP #### [facility] [address] [place] [address] Dr. Alicia Patel Urea nitrogen/Creatinine [Mass ratio] 13.3 mg/mg Normal [facility] Comment on above: Performed By: #### T SH, LIPID, T4, FT3, CMP #### [facility] [address] [place] [address] Dr. Alicia Patel T4on 11-06-2022 T4 [Mass/Vol] 7.90 ug/dL Normal 4.50-12.10 [facility] Comment on above: Performed By: #### T SH, LIPID, T4, FT3, CMP #### [facility] [address] [address] [address] Alicia Patel TSHon 11-06-2022 TSH 0.263 uIU/mL Critically low 0.358-3.74 0 [facility] Comment on above: Performed By: #### T SH, LIPID, T4, FT3, CMP #### [facility] [address] [address] [address] Alicia Patel URIC ACID SERUMon 11-06-2022 Urate [Mass/Vol] 7.3 mg/dL Critically high 3.5-7.2 [facility] Comment on above: Performed By: #### T SH, LIPID, T4, FT3, CMP #### [facility] [address] [address] [address] Alicia Patel Pre-Certification Formon Pre-Certification Form [id number]:127 Normal [facility] ECHOCARDIO M/2D COMPLETEon 0 10-26-2022 ECHOCARDIO M/2D COMPLETE Patient: VICTORINO SMYTH Exam Date: 10/26/2022 : 1940 Gender:M Ordering : IRIS CORONEL Admission #: [id number] Family : DR TRAY ALFARO . Order #: [id number] CLICK HERE TO VIEW EXAM ECHOCARDIOGRAM REPORT [...] on 10/28/2022 at 13:02 Normal [facility] RAD - MISCon 10-25-2022 RAD - MISC [id number]:127 Normal [facility] XR KUB 1 VIEWon 10-22-2022 XR [...] MONSIVAIS Date: 2022-10-22 09:12 Normal [facility] RAD - Ultrasound Reporton RAD - Ultrasound Report [id number]:127 Normal [facility] US KIDNEYSon 10-18-2022 US KIDNEYS EXAMINATION: [...] FORD Date: 2022-10-18 07:04 Normal [facility] IntraOperative Documentson 0 10-15-2022 IntraOperative Documents [id number]:127 Normal [facility] 37on 10-14-2022 37 Increase amlodipine back to 10 mg daily Increase Isosorbide to 120 mg daily ( 2 tabs) daily for chest pain Goal b/p is 130/80 or less Call office for continued chest pain/burning, shortness of breath, or call 911 for any worsening symptoms. Normal [facility] BNPon 10-14-2022 Natriuretic peptide B (Bld) [Mass/Vol] 300.0 pg/mL Normal <=1,800.[address] [facility] Comment on above: Performed By: #### T SH, LIPID, T4, FT3, CMP #### [facility] [address] [place] [address] Dr. Alicia Patel CBC AUTO DIFFon 10-14-2022 BASO # 0.0 103/ul Normal 0.0-0.[address] [facility] Comment on above: Performed By: #### T SH, LIPID, T4, FT3, CMP #### [facility] [address] [address] [address] Alicia Patel Basophils/100 WBC (Bld) 0.6 % Normal 0.2-2.[address] [facility] Comment on above: Performed By: #### T SH, LIPID, T4, FT3, CMP #### [facility] [address] [address] [address] Alicia Patel EO # 0.2 103/ul Normal 0.0-0.[address] [facility] Comment on above: Performed By: #### T SH, LIPID, T4, FT3, CMP #### [facility] [address] [place] [address] Dr. Alicia Patel Eosinophils/100 WBC (Bld) 4.6 % Normal 0.9-7.0 [facility] Comment on above: Performed By: #### T SH, LIPID, T4, FT3, CMP #### [facility] [address] [place] [address] Dr. Alicia Patel Erythrocyte distribution width (RBC) [Ratio] 14.2 % Normal 11.0-15.[address] [facility] Comment on above: Performed By: #### T SH, LIPID, T4, FT3, CMP #### [facility] [address] [place] [address] Dr. Alicia Patel Hematocrit (Bld) [Volume fraction] 36.1 % Critically low 42.0-54.0 [facility] Comment on above: Performed By: #### T SH, LIPID, T4, FT3, CMP #### [facility] [address] [place] [address] Dr. Alicia Patel Hemoglobin (Bld) [Mass/Vol] 11.8 g/dL Critically low 14.0-18.0 [facility] Comment on above: Performed By: #### T SH, LIPID, T4, FT3, CMP #### [facility] [address] [place] [address] Dr. Alicia Patel IG # 0.03 10e3/ul Normal 0.00-0.[address] [facility] Comment on above: Performed By: #### T SH, LIPID, T4, FT3, CMP #### [facility] [address] [place] [address] Dr. Alicia Patel IG % 0.6 % Critically high 0.0-0.[address] [facility] Comment on above: Performed By: #### T SH, LIPID, T4, FT3, CMP #### [facility] [address] [place] [address] Dr. Alicia Patel LYMPH # 1.1 103/ul Critically low 1.2-3.[address] [facility] Comment on above: Performed By: #### T SH, LIPID, T4, FT3, CMP #### [facility] [address] [place] [address] Dr. Alicia Patel Lymphocytes/100 WBC (Bld) 22.6 % Normal 20.5-60.0 [facility] Comment on above: Performed By: #### T SH, LIPID, T4, FT3, CMP #### [facility] [address] [place] [address] Dr. Alicia Patel MANUAL DIFF REQ NO Normal [facility] Comment on above: Performed By: #### T SH, LIPID, T4, FT3, CMP #### [facility] [address] [place] [address] Dr. Alicia Patel MCH (RBC) [Entitic mass] 33.2 pg Normal 25.9-34.[address] [facility] Comment on above: Performed By: #### T SH, LIPID, T4, FT3, CMP #### [facility] [address] [place] [address] Dr. Alicia Patel MCHC (RBC) [Mass/Vol] 32.7 g/dL Normal 29.9-35.[address] [facility] Comment on above: Performed By: #### T SH, LIPID, T4, FT3, CMP #### [facility] [address] [place] [address] Dr. Alicia Patel MCV (RBC) [Entitic vol] 101.7 fL Critically high 80.0-94.[address] [facility] Comment on above: Performed By: #### T SH, LIPID, T4, FT3, CMP #### [facility] [address] [place] [address] Dr. Alicia Patel MONO # 0.7 103/ul Normal 0.3-0.[address] [facility] Comment on above: Performed By: #### T SH, LIPID, T4, FT3, CMP #### [facility] [address] [place] [address] Dr. Alicia Patel Monocytes/100 WBC (Bld) 13.8 % Critically high 1.7-12.0 [facility] Comment on above: Performed By: #### T SH, LIPID, T4, FT3, CMP #### [facility] [address] [place] [address] Dr. Alicia Patel NEUT # 2.9 103/ul Normal 1.4-6.[address] [facility] Comment on above: Performed By: #### T SH, LIPID, T4, FT3, CMP #### [facility] [address] [place] [address] Dr. Alicia Patel Neutrophils/100 WBC (Bld) 57.8 % Normal 43.0-75.[address] [facility] Comment on above: Performed By: #### T SH, LIPID, T4, FT3, CMP #### [facility] [address] [place] [address] Dr. Alicia Patel Platelet mean volume (Bld) [Entitic vol] 10.1 fL Normal 9.5-13.5 [facility] Comment on above: Performed By: #### T SH, LIPID, T4, FT3, CMP #### [facility] [address] [place] [address] Dr. Alicia Patel PLT 160 103/ul Normal 150-[address] [facility] Comment on above: Performed By: #### T SH, LIPID, T4, FT3, CMP #### [facility] [address] [place] [address] Dr. Alicia Patel RBC 3.55 106/ul Critically low 4.70-6.[address] [facility] Comment on above: Performed By: #### T SH, LIPID, T4, FT3, CMP #### [facility] [address] [place] [address] Dr. Alicia Patel WBC 5.0 103/ul Normal 4.0-11.[address] [facility] Comment on above: Performed By: #### T SH, LIPID, T4, FT3, CMP #### [facility] [address] [place] [address] Dr. Alicia Patel Coding Summary.on 10-14-2022 Coding Summary. CD:[id number] Ww+PGh lYWQ+BA3KIPLdX66qdNSeoZ7tK 0NMTElOSywgQVBQTElOSyIgbmF wGB8ebWRhOFPi IC8+UG2eIKXxOaaqcGYeq8G0xT K9K69lwj9uHZgqlUH9OKUkGgLo wcbgh0ttsMa5DUsyHxapXmZl HXUyiC23JFF5wM07Mr59vGCnnJ Ckh3tniXo1LcNpZOFoYIF4bXmi CQcmi1RvJHYzX99kpKKpd6T1 VCQvqAfeqNPkOlRcxER3vP8zBI nrcwtlc2ujtrsxBxe0zd31zBJt x8I2iLF4O5PhgnD3DFUrhPIs FnlauTGRgT0mtfwkn2iqasgnLy RaPYDjSNp9MNp6MFPziNuyVpRp DP96SHF9HJRxyzFoS4KlZOHz aWiiPwP8f7C5Sl5OQ5XFSpjkP7 VNTUFSWTwvdGQ+JS23yc54Z3Cm RzxsMrr6LREqFGT0uBB9vF3t VYUxXYreq2J8oZW8J9CehtJqqs 2iq6zsAAXxXGpzH23ckONcc8Y7 GZNafHX4FVXkgAaiFyFudO71 Oyc+MYEdcWlne3FkMziva3yry6 jkaEf2RtioRPAyhxHawCaoRLI1 z8KiUs7tEYIllUK5wCZ6sB8b WbBhRoH7XAjqX491UbCrvEKcYf tpP09aT5ZimEU+WCKiSmb6BDTd nPbpFH5fQ6WuVXKendrspAQa jZzlVP0kTEWuybbfTIQgpY5oJB BuA7o2IiMvAbR8WGuhM8VtJEUc tnkxHw63nH2kNjCwZoI2ZKnv U5KjywJ6CKBgfDQtKEzmVIJ8V1 3ko3X5CXQhTGSoPWE8xNY8bO4x bGlnbjogbGVmdDsgdmVydGlj EWzeWCvzI033DIQvkKrpCdOdKI luZyBEYXRlOiAgMDQvMjAvMjAy MzwvdGQ+LHCbLCP9vGpeSNRl fBMxRKfaPq8qeDhnyTkvNK9pNZ FrslgaRMNksI6kVUXkmUNcfVgg XE3gPWKomvidx557AmGbEHC2 VWIreXKkN5XmbI1qMkJrHZHnXC MxF7QtsQDjIKaiT028ONfzXyL1 VNZezuKeC0MhQRCjnQfrSzA3 r0J2Ca0Da9PtqxdpG9MfuYOuIn AqJhrzFTv5Z6FeWpwzgCT+PC90 ZGOiOY75DCw2EUA4nWarGAob CEHaO6NfzU1dEzFkUBHeDXUhPw c+PHRhYmxlIHdpZHRoPScxMDAl MpYtrAxuXE0uDu1jVAGhTOZj qZgtkBInPbLhu3hxBEZvZGfbVD 5opDgwY2IccSM8IISpo6a8Ar99 Y67wC7LahNW+PFPtuOC7oMY7 uT9wTqKaZqQ6OPelI894QcKtyM KrEsczc6lwp2sepPw9ZaN3XZTx egTtyVcqGNY5v6VkZc18R61y IHdpZHRoPSIxNSUiIHZhbGlnbj 6leS5rXc8+KZAviIV2tWZ1pX8c CvNwKsM7LTorA906OeHiyVCn Euhcq3uis1rcfGn0YiJqHQIbmf TajEfuXJK7h9VtSt24S4KqzRby t6EjHpb3bl31kOHke3P1jJS4 H8ZnRWYmjevruFZvdObyDJ0hCA OycnvkOYHsbP7cJOTnK3y1PbJz CbN2DNaoO1EgbvL3EJVafFFn AEHayIILyV5iebave2khrgbbTe UgCKSnHOk8GWt1LMNelOffPmCn MXF3KmQ8PAT5zLRwmZ4oiWxw zgylmU4gFjn+GHI0uXVqoSTYDF 1lOjwvdGQ+TCOjTQK2xDxeRRta ZQCfmN2nGHGlZ7v0FbLvWkQ1 CVbtQ8JzoeJ0ILZaqIEtRWLsdH WQjO1wlckle3ilwhstQqCqHIFk MHk7DVt8FXDtsSeoTeMuVAP1 PaA1BZM0zITlqX6gxAuhtzaunB 9wOyc+KajlsGglQPV0ZFe0Y4Is Otm9GADjtZedTJ9kxGEsFPoi Sq6zgTgphNfuYI3lJOIlfkotq0 29LeJry8edKYBdrMPyGDgrJDN4 Z47qr7M9KLMgWILaGDM7rLU0 jY9irHagtpasfTZymJmlpfCarI lnOQhtDWleZ432KOIxvUwxKlJv FNm8Q8UrFzd8IHRbbLlkRN8u mYXpENdfVn2gkOqnwBqxUM4bON Ehanfns515BaDbb1goOJFjtDMt LNouEUU9V13ia3N1JTZiQSNg LOZ7bCB4xU0hlBmjscannXZizP ntyoQqbRruIImcTMwtB749PNJh mXwbFxUtdOe8O2VsSwt3JDId eRbrFP3krDUvZFppAs3diQscmE hyDW3sOXJziwwpj677IgOpe6ad CHWxaOJvNYteKHG7C52ez6O9 KHQzNHJwQGY9pVY2cB7lnWqujw ogbGVmdDsgdmVydGljYWwtYWxp Z590FOAsgOksVaNqjIxjlrYt LGsoIRs3G7QeQsujuIR+PC90YW BfNQ79wHLptKEwi5kwlZq3NmOe HEDaIOE1sOhsSAukc2EiNGRr P79ctPGos6Y2MPAsoXoqzWVvMh AadET7cR5aHSchsdfdb6oopdli Bfsdi1miwj79wC56A62nRAuz MOGtMVMcPSJcBKPmbFmkop0whE 9wIi8+FZZqxAG0iTV4iX9vRJNb CwN6SRorE079FkKwrDVnJtbd l7mop4xsjNv8FgB9AMZgqhMnbR iaITC3h4NaUq56I14uVDpdYVQu JWMcNDAcZDYjrVpgfp0qoM1s Ii8+LQSbpXT1mGL2eA1mSyXcIs H6QHjcW475RsMigNUsYrboF59d K5JfwMZ+ZDRkQse3JBIhoMgm HZ1kkLAnZVmuIj2fGJK7WnAfZo IhBPxpV2CyLWJwmrwothpftQT1 UMVrNNPuyM88Cy1psUtnVLUu aLICsF8trurxk2jxnqvtMvFtOR YtCNr4NTx7DDMmhBmwWgYdKFB8 UbL4NCH9oEVdfN0qrZyrjpnt qU1qK7QpZFLpmrzmQg06hG8eTr XeTaB8UAvkIhn+NXZMMP4UMloa CfQKKeTEIPIZNC63RP18wRZv v7I7iNZ3S8SqSDGvjgakdenfqT R0INDtACFfkO09wJOxBRpfIs8q e8P4f782CVIhOVZexK34En2o sVfvMHGygQKUnD0rfkugs0ktyt voAuOfGVJvSHj6DLb1NXBsjBbk JgTvIHH7MfL2PAK7wCHakO8b tGckybldeP9qYmy+MDIvMDQvMT l6RjvfeML+WMUnIGA8jZcePUmx CYZvfE0eVXUrD5b5UgYpIpY6 JOxlX5ReWCAgyccwHj55cQ6sEa DgClE0FCecQ6ClaiM2BVScpRYy CIwwPBL7O26xl0F7JDJbJHCp EFX6uHD3qE4ozNvfxafcsZMgkL wayzBtzIwcWJbzFFkjO426DMUj xLisHixbCVklYGFcVU57FG95 vHWvo2N5nEK0L9TxDXGzckrdtl rkaNE3HJRuCUBvzI30iGJrLZvj Et1sc2Q1y565RYRwDUOicB05 Wf0wyEsuUTLmrKWNwO5uatcbi1 mwtwfgEjDjWUTaRRc3ZBn9YSHb dIswUfJgCOC2XdN9NBH4vMIm eF0atUpospnxlL7yLhm+TWFsZT wvdGQ+SAWaXFW9hBdvTVcdNJLa gQ2sUVVkQ7w5HyYlZyL2BHit B1MtZTIzuvktOj10qL9gXqXoFr H3MSedB4BukyK1CCJkyICdVOxj UDL6A33ob2H9EISgUFVtSEZ8 sZF3pN3xrJibuvdadATkzElgvt AnxVdfDKjzSYrpP083TFYjdZow KbNqLoTmNZVlwshlF3MsSJUG TYpbM0UiZ5VbsSeemCE+PC90cj 18C2GvCvzzBtl4PWGsEWX3lHF4 oR4oKFKgVBvzu3J3yYL6A2Eu lhZexf4tf6ntAHMgJDvwZ33ltT Rqw9X1GSVhhSD8SDThhWqoSeCw wR87Uis+NGWtuVlmb3YrMyoz e8bdh1risWh4HiAySZMjckLogK akYMN5x6BkQq36T44sCZwfEASq HEOgNJVhJSSjnOprtv3iaI3d Ii8+OCFmsIT6mNU9fQ6bBeXbSy I5SOazZ013XiJovMSoBxuws6yw c9mxlMj3IoDtKHGtkuVyjFkz YSA1n3CdTo47W0FjlLemn3QwRu a1dv15vBJcg3L6nTF8V7SpVRWx hgpqkCPlvKlwGP3xTMLfsggu WMAgmK0uOAZyB1s8XqKyXbI2QK olQ6JwpaE8SZJgcDFpWIVbyIJB dA1hhuieb7ttobjmAvPsUNEp NTw5LUz5BDQojVpuZvNwTSM7Xv P1LPM9xNCylK8kiLyogbwxqQ6e Oyc+NOz9e1psmDDiOT8vpSQ9 UQ73MF85sAJye9K5qGG0Z5CoXT LjiktdqnueqWW2TKCeLBXejI02 Bk4ffTdxSl2bYTEcIPL3UPUe lIDhD9JhsH8dBlRySBVkUEWeG6 HnoRLoHDyjQ902OJbnCdM5MCCm hoXzD1SeSVFrdNlcPbW2o1J9 Xp0VEI24IN49SW73rYDhp1I5zD J5H4FfEIJrtresjrtwrMQ4OMJm HEMztD47Ot7omDifXi6aGRMq FXO1GNJbdXLpI3DvcO4xCuImGS XyOBXlM4BjlBWdZOjrN036AVxi GlI8HZIasnOsX7VpFYEhhAfu VbF5h6B4Ki4TVv12NL81CM82yE Cbr8O8aIQ6O8PlFETbrunokkui oAP7JKRnVCIkdL44Bj4fwEah Cc4dDCQaXQR2RNHqeSYtX8XxgS 2vRbWfCBTpREBpL8KjyPJmACoq S705LGqdLmP0NWTxmvXiO1Zc TAFzdQyuAvI5o8I7Li9QECybyz s9B1SaCkaonDT+RE34WBJtDS19 yMJreQMvq2dkhQc1GqYzOQYj QUL7nDhl (more content not included)... [facility] Office Visiton 10-14-2022 Follow-up visit [id number] Ruben Smyth 1940 M Date Provider Department Center 10/14/2022 IRIS BLACKMAN [facility] Family History Problem Relation Age of Onset No Known Problems Mother No Known Problems Father Family Status - Relation Status Age at Mother Father Level of Service:84200 [place] OFFICE/OUTPATIENT ESTABLISHED MOD MDM 30-39 MIN Reason for Visit and Comments: Chest Pain [071888] Coronary Artery Disease [187] Hypertension [802762] Normal [facility] PROF CHEM 8 (BAS METB)on Anion gap [Moles/Vol] 13.9 mmol/L Normal [facility] Comment on above: Performed By: #### T SH, LIPID, T4, FT3, CMP #### [facility] [address] [place] [address] Dr. Alicia Patel Calcium [Mass/Vol] 8.3 mg/dL Critically low 8.5-10.1 [facility] Comment on above: Performed By: #### T SH, LIPID, T4, FT3, CMP #### [facility] [address] [address] [address] Alicia Patel Chloride [Moles/Vol] 108 mmol/L Critically high 98-107 [facility] Comment on above: Performed By: #### T SH, LIPID, T4, FT3, CMP #### [facility] [address] [address] [address] Alicia Patel CO2 [Moles/Vol] 23.5 mmol/L Normal 21.0-32.0 [facility] Comment on above: Performed By: #### T SH, LIPID, T4, FT3, CMP #### [facility] [address] [place] [address] Dr. Alicia Patel Creatinine [Mass/Vol] 2.41 mg/dL Critically high 0.70-1.30 [facility] Comment on above: Performed By: #### T SH, LIPID, T4, FT3, CMP #### [facility] [address] [address] [address] Alicia Patel EGFR-AF SENEGALESE 32 mL/min/1.73m2 Critically low >=[address] [facility] Comment on above: Performed By: #### T SH, LIPID, T4, FT3, CMP #### [facility] [address] [place] [address] Dr. Alicia Patel EGFR-NON AF SENEGALESE 26 mL/min/1.73m2 Critically low >=[address] [facility] Comment on above: Performed By: #### T SH, LIPID, T4, FT3, CMP #### [facility] [address] [place] [address] Dr. Alicia Patel Glucose [Mass/Vol] 74 mg/dL Normal 74-[address] [facility] Comment on above: Performed By: #### T SH, LIPID, T4, FT3, CMP #### [facility] [address] [place] [address] Dr. Alicia Patel Potassium [Moles/Vol] 4.4 mmol/L Normal 3.5-5.[address] [facility] Comment on above: Performed By: #### T SH, LIPID, T4, FT3, CMP #### [facility] [address] [place] [address] Dr. Alicia Patel Sodium [Moles/Vol] 141 mmol/L Normal 136-[address] [facility] Comment on above: Performed By: #### T SH, LIPID, T4, FT3, CMP #### [facility] [address] [place] [address] Dr. Alicia Patel Urea nitrogen [Mass/Vol] 36.0 mg/dL Critically high 7.0-18.[address] [facility] Comment on above: Performed By: #### T SH, LIPID, T4, FT3, CMP #### [facility] [address] [place] [address] Dr. Alicia Patel Urea nitrogen/Creatinine [Mass ratio] 14.9 mg/mg Normal [facility] Comment on above: Performed By: #### T SH, LIPID, T4, FT3, CMP #### [facility] [address] [place], [place] [address] Dr. Alicia Patel TROPONIN, HIGH SENSITIVITYon 10-14-2022 HSTROP 9.6 pg/mL Normal 4.0-76.[address] [facility] Comment on above: Result Comment: CUT- OFF POINTS HAVE BEEN ESTABLISHED BASED ON THE FOURTH UNIVERSAL DEFINITIONS OF MYOCARDIAL INFARCTION. THE UPPER REFERENCE LIMIT (URL) OF TROPONIN, DEFINED THE 99TH PERCENTILE OF cTnI DISTRIBUTION IN A REFERENCE POPULATION, HAS BEEN CONFIRMED THE DECISION THRESHOLD FOR [place] DIAGNOSIS. Performed By: #### T SH, LIPID, T4, FT3, CMP #### [facility] [address] [place], [place] [address] Dr. Alicia Patel Main OR Intraoperative Recor don 10-13-2022 Main OR Intraoperative Record IntraOp Document Type FT Summary Primary Physician: Ni OLIVARES MD Finalized Date/Time: 10/13/22 15:17:44 Pt. Name: VICTORINO SMYTH/Sex: 1940 Male Med Rec #: [id number] Physician: Ni OLIVARES MD Financial #: [id number] Pt. Type: A Room/Bed: [place] [address] Admit/Disch: 10/07/22 09:01:16 - 10/07/22 17:40:00 Institution: [...] Role Performed Anesthesiologist of Surgeon - Primary Director Of Income Tax - Primary Record Time In 10/07/22 15:01:00 [...] and tissue Entry 1 Skin Integrity Intact, [place], Warm, and Skin Abnormality No Dry Outcomes [...] at Side (more content not included)... [facility] Consent for Anesthesiaon Consent for Anesthesia [id number]#1.00CD:127 [facility] Discharge Instructionson Discharge Instructions [id number]#1.00CD:127 [facility] IntraOperative Documentson 0 10-08-2022 IntraOperative Documents [id number]#1.00CD:127 [facility] IntraOperative Documents [id number]#1.00CD:127 [facility] IntraOperative Documents [id number]#1.00CD:127 [facility] Preoperative Documentson Preoperative Documents [id number]#1.00CD:127 [facility] Preoperative Documents [id number]#1.00CD:127 [facility] Preoperative Documents [id number]#1.00CD:127 [facility] XR Abdomen 1 Viewon 10-09-19 23 [...] mGy = 0 DAP = 0 [facility] CHEMISTRYOrdered By: Lab ROP User on 10-07-2022 Glucose [Mass/Vol] 101 mg/dL High 55 - 99 mg/dL [facility] POC Subsection Comment on above: Result Comment: Jackelin quach RN/ POC Device SN [id number] Invalid Interpretation Code FT POC Subsection POC User ID [id number] Invalid Interpretation Code [facility] POC Subsection POC Username BEE NORRIS Invalid Interpretation Code [facility] POC Subsection Capillary Glucose POCon 09-25 Glucose [Mass/Vol] 101 mg/dL High 55-99 [facility] Comment on above: Result Comment: Jackelin quach RN/ Performed By: #### 2 [id number] #### [facility] [address] [place] [address] Consent for Procedure/Surger yon 10-07-2022 Consent for Procedure/Surgery [id number]#1.00CD:127 [facility] Consent for Treatmenton 09-25 Consent for Treatment [id number]#1.00CD:127 [facility] H&P Updateon 10-07-2022 H&P Update [id number]#1.00CD:127 [facility] Inpatient Patient Summaryon 10-07-2022 Inpatient Patient Summary [address] [address] [facility] Clinical Discharge Instructions PERSON INFORMATION Name: VICTORINO SMYTH PHYSICIANS Admitting Physician: Ni OLIVARES MD Attending Physician: Ni OLIVARES MD PCP: Erum OLIVEROS, Tray Discharge Diagnosis: Comment: PATIENT EDUCATION INFORMATION Instructions: Post Op Patient Instructions - FT (CUSTOM); Lithotripsy, Care After Medication Leaflets: Follow up: With: Address: When: Ni OLIVARES [address] [place] [address], [address], [address] [address] Business (1) Comments: We were [...] Location Start Finish State [facility] Office Visit [facility] [place] 10/29/2022 8:45 AM 10/29/2022 9:00 AM Confirmed MEDICATION LIST New Medications [id number], [address], [place] [id number], [phone] acetaminophen-hydrocodone (acetaminophen-hydrocodone 325 mg-5 mg oral tablet) [...] Capsules By Mouth every day. Comment: [facility] Main OR PACU I Recordon 09-25 Main OR PACU I Record PACU Phase I Docum ent Type FT Summary Primary Physician: Ni OLIVARES MD Finalized Date/Time: 10/07/22 16:21:28 Pt. Name: HAJAVICTORINO/Sex: 1940 Male Med Rec #: [id number] Physician: Ni OLIVARES MD Financial #: [id number] Pt. Type: A Room/Bed: [facility]/ Admit/Disch: 10/07/22 09:01:16 - Institution: Case [...] By: ALESSIA YOON RN 10/07/22 16:21 [facility] Main OR PACU II Recordon Main OR PACU II Record PACU Phase II Doc ument Type FT Summary Primary Physician: Ni OLIVARES MD Finalized Date/Time: 10/07/22 18:36:17 Pt. Name: VICTORINO SMYTH/Sex: 1940 Male Med Rec #: [id number] Physician: Ni OLIVARES MD Financial #: [id number] Pt. Type: A Room/Bed: AS06/ Admit/Disch: 10/07/22 [...] By: Eliz Mcbride RN 10/07/22 18:36 [facility] Main OR Preoperative Recordo n 10-07-2022 Main OR Preoperative Record PreOp Document Type FT Summary Primary Physician: Ni OLIVARES MD Finalized Date/Time: 10/07/22 15:12:57 Pt. Name: VICTORINO SMYTH/Sex: 1940 Male Med Rec #: [id number] Physician: Ni OLIVARES MD Financial #: [id number] Pt. Type: A Room/Bed: Admit/Disch: 10/07/22 09:01:16 [...] 10/07/22 15:12 Aravind Gatica 10/07/22 15:12 [facility] Monitor Recordon 10-07-2022 Monitor Record [id number]#1.00CD:127 [facility] Monitor Record [id number]#1.00CD:127 [facility] Operative Reporton 3 Operative Report Patient: [...] well. 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 Jose Alfaro to arrange for possible further follow-up regarding this. She was in agreement with the plan.. Estimated Blood Loss: 0 ml. Complications: None. Anesthesia type: General. [facility] Comment on above: Result Comment: Elec tronically Signed By: Ni OLIVARES MD\.br\Date and Time Signed: 10/07/22 15:51 EDT Outpatient Surgery Discharge Instructionon 10-07-2022 Outpatient Surgery Discharge Instruction [address] [address] Patient Discharge Instructions PERSON INFORMATION [...] Follow up: With: Address: When: Ni OLIVARES [address] [place], [place] [address], [address], [place] [id number] Business (1) Comments: We were able to [...] any other anesthesia procedures. Type Location Start [facility] Office Visit [facility] [place] 10/29/2022 8:45 AM 10/29/2022 9:00 AM Confirmed [...] to serve you. Thank you for choosing [facility] HERE ARE THE MEDICATION CHANGES THAT OCCURRED DURING YOUR HOSPITAL STAY New Medications [id number], [address], [place] [id number], [phone] acetaminophen-hydrocodone (acetaminophen-hydrocodone 325 mg-5 mg oral tablet) [...] Instructions: Lithotripsy, Care (more content not included)... [facility] Patient Education - Texton 0 10-07-2022 [...] these instructions at home: Medicines ? Take lada-gqf-mayzppi and prescription medicines only as told by [...] help ri (more content not included)... [facility] Progress Note-Physicianon Progress Note-Physician Patient: VICTORINO SMYTH Age: 82 years Sex: Male : 1940 Associated Diagnoses: None Author: Toya OLIVEROS, Timothy Motta Postoperative Information Postoperative disposition: Postoperative disposition: To PACU. Optimetrix number: Optimetrix number [id number]. Anesthetic utilized: General. Physical Examination Vital Signs [...] when meets criteria ( To home ). [facility] Comment on above: Result Comment: Elec [...] Problems Acute kidney failure / SNOMED CT 17894115 / Confirmed Anticoagulated / SNOMED CT 728606330 / Confirmed BPH associated with nocturia / SNOMED CT 4453418367 / Confirmed BPH with urinary obstruction / SNOMED CT 9295041261 / Confirmed Chronic obstructive pulmonary disease (COPD) / SNOMED CT 57425956 / Confirmed Coronary artery disease / SNOMED CT 75366994 / Confirmed DM (diabetes mellitus), type 2 / SNOMED CT 263660686 / Confirmed Elevated PSA / SNOMED CT 6942516249 / Confirmed Erectile dysfunction / SNOMED CT 8440343098 / Confirmed Flank pain / SNOMED CT 185185950 / Confirmed H/O: hypothyroidism / SNOMED CT 999604234 / Confirmed Hydronephrosis / SNOMED CT 92508240 / Confirmed Hydronephrosis with ureteral calculus / SNOMED CT 2907346272 / Confirmed Hyperlipidemia / SNOMED CT 09401073 / Confirmed Hyperplastic colon polyp / SNOMED CT 6813576163 / Confirmed Hypertension / SNOMED CT 3776961829 / Confirmed Kidney stone / SNOMED CT 627625689 / Confirmed Myocardial infarct / SNOMED CT 89761011 / Confirmed Occult blood in stools / SNOMED CT 82989054 / Confirmed Postprandial diarrhea / SNOMED CT 49068924 / Confirmed Prostate cancer / SNOMED CT 4218550518 / Confirmed Rheumatoid arthritis / SNOMED CT 982140300 / Confirmed Ureteral stone / SNOMED CT 50286459 / Confirmed Urinary retention / SNOMED CT 191932903 / Confirmed, Active Problems (24) Acute kidney [...] Mean Kayce (more content not included)... [facility] Comment on above: Result Comment: Elec tronically Signed By: Toya OLIVEROS, Timothy Villanueva.br\Date and Time Signed: 10/07/22 16:52 EDT Coding Summary.on 09-22-2022 Coding Summary. CD:[id number] Ww+PGh lYWQ+XD5ZWGZqC36zrRVhaA7lI 0NMTElOSywgQVBQTElOSyIgbmF bBF5acUBoDXUz IC8+BA2jEQSzEfstyUYuq2T1sT N1B02hhj3dBUakdLJ8SQTqXyEi yexae9jzvNu0JVkcDvupIfBd UQWmyQ11YHJ1cE03Qv47rVLmmI Rpd7pcoEy1CtXbQWDhGFY3cZvn LMtsd0YtNSRkX47gvWOtn9U1 MAUjlXyrsHZzPrZanQM5yX3jWR yrahsle1oqkdpvGvk4kz16wUNm w3T2fBT9Y4MbkmH3OSGigZGz LopxmEIGpG8xmvmjk7xesuooCw IeGUYbVZa9LRr4OAOmoLgiAcDq XM95ZHP2NZDjylWpM2PsVLRp nCvmWnW3p0Y6Qf7NR0AZPivwQ0 VNTUFSWTwvdGQ+ZR97yt46N6Yd ZuhhMss7RABmDFH6vKX9qR8w IGYrEYtav0I0bJY9S3XqqoJyhr 5gc3vcMKSyKOruX99osNWcq3L2 CDTzcYK0SMVleIsqDnQosS06 Oyc+HDWvqRwkx3LlXbxah0bwq5 qvuFw8TwprKWKnkwZihStuISM6 k5HmVb3mVVLxnHH0tLW0iE2e BzEzCeT8KBkpN955WmQeiUPwKc nwP61zV0SghJR+XVMgQyk5WWPx rTowOR0cD5XgGWZfhytifXSs bRnxOJ4wIALxuetaTGGfaC5uIE GjY0q0LlUkMoN0PXspI6BhDEDj puwsZi58aK9nAoDoAvA8CVhq V7JekrO2FTKzfIOqDVmqIDJ1L0 6ff0O4YRXdITNvDUT8hUN1jD2a bGlnbjogbGVmdDsgdmVydGlj TZoeRNfdO988GJWbqGjwViLvTR luZyBEYXRlOiAgMDMvMjkvMjAy MzwvdGQ+DWDgKET8yBexPIFf yGQfSPvnEz8loGnqwQuiIT9qAW GvscmnZBLttZ7zPNLncUIoiMqc EY0hSJKxobwda530GtPaIED7 RIDegCKfJ5PceD0yNyPdRPBrRN VmH4PbaMYmSMdsZ270FCpsFfQ4 JPTixbMfF6BvVRZncKlbApR8 r1L3Mc5Hz8FyiviaO1IxyJVzLa GqRnmfOOw8B7HrSgrbpDP+PC90 YXPfNH84WTl9EGG0jUqfSNiz FLGoQ1SwsE5dUwBpKNTpMHLbVv c+PHRhYmxlIHdpZHRoPScxMDAl OyXcsGmnUL0bVe6rZRYgOLNy bAturNFdGkYgp9ysFGEdPCfpPT 7imZpeY8OesER0HKRsz2s8Oi80 F65dL3OfqSF+PWMlsOT7oRP4 sT8rRkYlWyM4TGuiE574ObJhiY MmLrkpf1pwn1hyiPc0XoA0FVHz eqFijQqaSSW1l0LtLy67D59y IHdpZHRoPSIxNSUiIHZhbGlnbj 3nbZ1aQc1+XQFzsEE2bOZ6hC6n FfEkOfV4PUmtX664FoXswJKw Icnyb4ibt3kpeSl2NpVrDDLgjh HfpYnjAFK2p1JoRl78P8BzjCtz v8IfUvu4ha99cXEof6Y3aZH3 S9OlZBQwsywoqGPgmOgsJM8kIA NdunwaUNOwsE7tLWSyE8h1TmZh KvR9FZydH0NeajT5PIRneDXh WAMmpDWNuR7vadger3bjwiqnHk BsSQKmUMs7PFz3GVCkgVllLbAz WWR6CpE5MVF5kTPdmG6akYmr jfigxH9wMus+PCD5jENpdFFFML 1lOjwvdGQ+REVuRVP0tPnrTKmm RZMbzZ0uTZLzR2q1EkDcDtZ0 IBkiD1JifpU5YBJtyHWeFGHbjC ITwB3ommekn8ugppwuGePaDKYh ZLn7OFo8HLDvnXjrMwYvRZV6 WvT4ENS6iWJkoC7yyRpegmcipS 9wOyc+ByguhYklVJI6GBz2K7Sc Tjo6YZGlqDfvUP3kqSIxHGcp Bx5srPilcXoyNX1cLTMssnknc0 19AfGbv0yqXGXoeLXiJPyjAWI9 E57ve8C7UUKuISArXON2lFL9 vI9awBisrbrfvCPkmGffhaLzlJ txGMqzQCpyK746OZZioQdbVfPk OIb6J8WxDvw5XUTkuAslMI2z jXGgAEsdIt6toGjaiOcwKF9bFC Cpckomn150EzKty9lgKGMjhCYm LHdiUHO1J51cs1M0HPLyAUHl ANW7cWI6rK7usXdxhgmtyJUmxQ goztTobMnuWCwvINqqW537TFKc eGyfYoIkiNo6C0NhPvk4YNCf jPydFC9zfHMaNXumAy0rlFlbxQ lrGT0sQZRtwbcrl529XyWnx8lq PPRzjKMtECvtBXL0G59nn9Z0 OURsDELzFTG1fWP0jJ0kxZnjpa ogbGVmdDsgdmVydGljYWwtYWxp M563VVPliIoaLqTynTzokbGs LAcpNZf0Z6HsNenbqTK+PC90YW HaMD74eRLpoJTwz7iegVt9GjAj HJUrOEG8eEndNHvns6WcXXCc B50qxJEwf1J6QTGmlDltzOCbFe EuxCN6nV5uAYrqrgnyt7lfvsle Cklkw1kilw86qG48C45uVQwc YOMlRGNdFSQwBXAsqUbnlq8tlO 9wIi8+ZYPshHJ5lKZ1aM1pOYYs TsZ6LOejU098IaVibSJxFjwy k3kpy0cxaQb7BtP4ZYCpnpWitX mpZJB2b2XjXm91P70eADdsBTGf RXClGWVfUPCxuUcsko2nfU9w Ii8+ZLBieCT7lXV8qE1cAbSfFu W7QPrcT029BeNeiHIdXkwmP48z W5WbfSO+ELUhSce0LUClvYry ED0eiLOnKYvfQz2lPHR2AxBnJm UzGKhpR1WrAYHcxqqqzoirsDU1 JBGpYBEsbA55Ih0zlIuoHJCe qOQNpD0esstbn5qsiandLhNmLZ TlRMy1KGh6BTHvfPbaVsIwPUK5 UlJ0UGE3hRUvaE7rrAetoqwv nM1dX0YzXSMmlmamBs00iY7eJo PnJgD3AXoyNkq+NBVMBU4YGhag AeLHWtHXFPXVHW34KJ87gTVf q5M6lER1A9ZlXVBhnaokzcckwW F9TWYoKAZbsM52bCWbTHvlGe8i k5Q9y750TEZnTREfnO35Zq0t tCfmLJFjpMBTxI1aeigfy7penm bcLlKqWFSkSVg7GGs2ZCRodZeu PhFgUIJ0XoR2AJV4nKPjiA4o yRqujewzlT0yMya+MDIvMDQvMT e4EqfvnNK+HZVpDSX7kXawJYve XEVowZ2hUXViT5k7WzKvSeV1 CUqlS5EuOXMpsnxkWm62xY1wOd HoKdK1HLxmY1FtmaP5QJDbmKDl CCrmEKS2F08by4P7JAPxXYKj NJW4jGR6eB0gfAcctzgofNGyxU sxylWwvUhjUXpfNItuB808UHMv jEofClzjYOmqPNEnJI46JU24 pDIak4I7lLC4E4FfGWCzkigrsa rorQF3BBUhIDHysH79kDKxHMoz Su0nu2Z0b798BPEqNBXinH42 Ux3fkCyrNHYlxHBXpF3vstgyv4 ukdjavSjHcMQVtCZr2YYp2TXBg xFnlYsOjRYT9DdI8LSS0eHLr nO9eyWhyagikrQ9cNbd+TWFsZT wvdGQ+WCCmUSL9cCogPRgpRURs kO8yEJYoH7f7SgRiUmJ3FVon W8YpFZEivcgfXu54mH3mNoSfYh L2XFugP2VbcjY7TKCywKNcSDzt ZVX2P01cw8A4VBEjCXBlRMN9 aNF6kV1nuJhknfmbqBPriUnhyz FafXasPPqcJDnmH517UYPhpOsc Yn45tUJvbMuajpY3B6HeBdyl dHI+VD26CERgPX33tMPbgJSym0 ijzBx0YdZgXZFtWBS2mDbdVEcv v2GcMUWgC45yaIGkj2N4MWKe yYtifOYeYxRniAB8kR8kTXztdy whl7eezamcLrurq2ocgc20uY18 O45hMKovXBPrQVZxNKDeJEDr xYusxn5wfV1wMd4+SUAnvHG3oN Z2lZ5gYmVsIkX8BCzvV620CgPt hSRvCwjnu9lfa1ryvMh4QcKs EMHnjwPecBdzBOH8b3IkRv99D3 9sIHdpZHRoPSIyMCUiIHZhbGln xf3huC6bDd2+IM7uz7dxwt68 wZ58eLM+WNLfKEJ4hToeYSjrTO SogC1uFVfbQqZ5PPMqTyTtvV09 bZQeOFyhQv7bdOiprSmvZK8p SLYzivgdb929NzMjx2zxSJCkqL TkTBrzKXM8M58uh9U4SSJiKEDp AHS4wLV8tI1qpLhkxdpmeKBv fGsyclWzoXvqDCgxSEjlD018KA StjHxoRdNgbHDvC7brjiIZDF7b OjwvdGQ+SMMoNPI3iHyxWYro CQClyR0nPRUlD6t6XqCsDqJ9WE ruP9ZnpkC4BSGgfIJaUEJmpWQD cU5cgsptz6ylsuntXtAjRINx HWl7EJh6ORBuzVurFrPhCBP6Rf R1PIP3gYXawB5bmBndyqctuH3s Oyc+RklOOjwvdGQ+PHRkIHN0 rZuuVXrvQVYjaZ9fDLBiA9h3Hi NoShE9NIefH2KzczW3LHOguXWe ENOsfIYCwI3zqysrq5ebetnc GcNwBFPiTPz8QUk2JXXeoMzbYa EjHMX1XyJ1YDU2xFNioK0oqDgy sxpfyH3nQbc+TVJOOjwvdGQ+ IXXrHCQ0lWqcBUpaGEEpfK7rIX TjP9w0JdRaWzH8QEcdW1YwulD0 ARHzrSPiWWHuxRYTfU3mihto d4clhdayRpZqRCAqSNn8RUu9MW ZaoIljVdIjGOQ0SvT6XAD1wEFp cD9wsTwgybpwgG0hGfp+UGF5 WQC5TK40ZV05F8TxUpqdlOQhtM U+PHRhYmxlIHdpZHRoPScxMDAl UbKcmDxuQP2qTf6fSRJiAFPp bGxhcHNl (more content not included)... Normal [facility] Consultation Noteon 09-21-19 Consultation Note [id number]#1.00CD:127 Normal [facility] Lab Reportson 09-20-2022 Lab Reports [id number]#1.00CD:127 Normal [facility] RAD - Ultrasound Reporton RAD - Ultrasound Report [id number]#1.00CD:127 Normal [facility] Outside Recordson 09-16-2022 Outside Records [id number]#1.00CD:127 Normal [facility] Auto Diffon 09-14-2022 Basophils/100 WBC (Bld) 0.5 % Normal 0.0-2.0 [facility] Comment on above: Order Comment: Order Added by Discern Expert. Performed By: #### 2 [id number], [id number], 0542433, [id number], [id number] #### [facility] [address] [place] [address] Basophils/Leukocytes Auto (Bld) [Pure # fraction] 0.0 E9/L Normal 0.0-0.2 [facility] Comment on above: Order Comment: Order Added by Discern Expert. Performed By: #### 2 721531, 08519349, 5282326, 82360045, 7190770 #### [facility] [address] [place] [address] Eosinophils/100 WBC (Bld) 3.2 % Normal 0.0-8.0 [facility] Comment on above: Order Comment: Order Added by Discern Expert. Performed By: #### 2 516563, 18508964, 0145275, 92737042, 3286074 #### [facility] [address] [place] [address] 148[address] Eosinophils/Leukocytes Auto (Bld) [Pure # fraction] 0.2 E9/L Normal 0.0-0.5 [facility] Comment on above: Order Comment: Order Added by Discern Expert. Performed By: #### 2 685326, 81194758, 5128427, 43606859, 1379691 #### [facility] [address] [place] [address] 13852 Lymphocytes/100 WBC (Bld) 17.6 % Normal 14.0-50.0 [facility] Comment on above: Order Comment: Order Added by Discern Expert. Performed By: #### 2 902911, 85101454, 6209183, 16876891, 1063335 #### [facility] [address] [place] [address] Lymphocytes/Leukocytes Auto (Bld) [Pure # fraction] 0.9 E9/L Low 1.0-4.0 [facility] Comment on above: Order Comment: Order Added by Discern Expert. Performed By: #### 2 318682, 88328128, 1010108, 81548682, 4808496 #### [facility] [address] [place] [address] Monocytes/100 WBC (Bld) 10.2 % Normal 4.0-14.0 [facility] Comment on above: Order Comment: Order Added by Discern Expert. Performed By: #### 2 186301, 09436479, 3784015, 79124006, 4882013 #### [facility] [address] [place] [address] Monocytes/Leukocytes Auto (Bld) [Pure # fraction] 0.5 E9/L Normal 0.2-1.0 [facility] Comment on above: Order Comment: Order Added by Discern Expert. Performed By: #### 2 551214, 51009583, 6147225, 60686746, 7274777 #### [facility] [address] [place] [address] Neutrophils/100 WBC (Bld) 68.5 % Normal 36.0-75.0 [facility] Comment on above: Order Comment: Order Added by Discern Expert. Performed By: #### 2 533935, 68286666, 8160717, 21282310, 1842604 #### [facility] [address] [place] [address] Neutrophils/Leukocytes Auto (Bld) [Pure # fraction] 3.6 E9/L Normal 2.0-7.5 [facility] Comment on above: Order Comment: Order Added by Discern Expert. Performed By: #### 2 635368, 23486075, 3023348, 44640945, 2562731 #### [facility] [address] [place] [address] BMPon 09-14-2022 Anion gap [Moles/Vol] 10 mmol/L Normal 6-16 [facility] Comment on above: Performed By: #### 2 788894, 90916240, 8411438, 77981336, 7956801 #### [facility] [address] [place] [address] Calcium [Mass/Vol] 8.6 mg/dL Low 8.9-11.1 [facility] Comment on above: Performed By: #### 2 470057, 09127440, 5335036, 99877355, 0277936 #### [facility] [address] [place] [address] Chloride [Moles/Vol] 108 mmol/L Normal 101-[address] [facility] Comment on above: Performed By: #### 2 259360, 46880518, 3277836, 86483130, 5899255 #### [facility] [address] [place] [address] CO2 [Moles/Vol] 23 mmol/L Normal 21-31 [facility] Comment on above: Performed By: #### 2 245004, 49940768, 2909731, 95321624, 7868293 #### [facility] [address] [place] [address] Creatinine [Mass/Vol] 2.1 mg/dL High 0.5-1.3 [facility] Comment on above: Performed By: #### 2 720110, 28825595, 7864440, 85889801, 9012916 #### [facility] [address] [place] [address] Glucose [Mass/Vol] 89 mg/dL Normal 55-199 [facility] Comment on above: Result Comment: If t his glucose result represents a fasting glucose, interpretation should refer to the following reference range: 55-99 mg/dL Performed By: #### 2 303167, [id number], 3662151, 33544645, 7997569 #### [facility] [address] [place] [address] Potassium [Moles/Vol] 4.1 mmol/L Normal 3.5-5.3 [facility] Comment on above: Performed By: #### 2 234333, 01168222, 5389630, 56529969, 2987925 #### [facility] [address] [place] [address] Sodium [Moles/Vol] 137 mmol/L Normal 135-145 [facility] Comment on above: Performed By: #### 2 229719, 68977009, 5366220, 52467144, 4902337 #### [facility] [address] [place] [address] Urea nitrogen [Mass/Vol] 26 mg/dL High 5-21 [facility] Comment on above: Performed By: #### 2 168184, 30965734, 1657595, 88912234, 3355474 #### [facility] [address] [address] Urea nitrogen/Creatinine [Mass ratio] 12 No Units Normal 10-20 [facility] Comment on above: Performed By: #### 2 082419, 01518635, 2268954, 07365823, 0832149 #### [facility] [address] [address]29[address] CBC w/ Auto Diffon 3 Erythrocyte distribution width (RBC) [Ratio] 14.0 % Normal 10.9-14.2 [facility] Comment on above: Performed By: #### 2 440305, 16153375, 6046825, 91935856, 2593707 #### [facility] [address] [place], [place] [address] Hematocrit (Bld) [Volume fraction] 31.6 % Low 37.7-49.0 [facility] Comment on above: Performed By: #### 2 915172, 96471078, 6328549, 84675815, 6779663 #### [facility] [address] [address] Hemoglobin (Bld) [Mass/Vol] 10.9 g/dL Low 13.5-17.5 [facility] Comment on above: Performed By: #### 2 142604, 75510675, 7016432, 24874686, 6672444 #### [facility] [address] [place] [address] MCH (RBC) [Entitic mass] 33.0 pg Normal 27.0-34.0 [facility] Comment on above: Performed By: #### 2 272836, 70311247, 3282790, 22262321, 3669451 #### [facility] [address] [place] [address] MCHC (RBC) [Mass/Vol] 34.5 g/dL Normal 31.4-36.0 [facility] Comment on above: Performed By: #### 2 342531, 96850855, 1530730, 64035182, 5655695 #### [facility] [address] [place] [address] MCV (RBC) [Entitic vol] 95.8 fL Normal 80.0-100.0 [facility] Comment on above: Performed By: #### 2 677125, 80824628, 8747925, 93899977, 0603347 #### [facility] [address] [place] [address] Platelet mean volume (Bld) [Entitic vol] 8.9 fL Normal 6.4-10.8 [facility] Comment on above: Performed By: #### 2 820941, 78540491, 4747404, 82396438, 9093819 #### [facility] [address] [place] [address] Platelets (Bld) [#/Vol] 151.0 E9/L Normal 150.0-500. 0 [facility] Comment on above: Performed By: #### 2 334888, 58522870, 2794374, 51511177, 4779334 #### [facility] [address] [place] [address] RBC (Bld) [#/Vol] 3.3 E12/L Low 4.3-5.9 [facility] Comment on above: Performed By: #### 2 712499, 96223771, 5226864, 83085634, 7429691 #### [facility] [address] [place] [address] WBC corrected for nucl RBC Auto (Bld) [#/Vol] 5.3 E9/L Normal 4.0-11.0 [facility] Comment on above: Performed By: #### 2 491226, 20746092, 9443686, 98903618, 5256732 #### [facility] [address] [place] [address] Consent for Treatmenton 08-26 Consent for Treatment [id number]:127 Normal [facility] PT & PTTon 09-14-2022 aPTT Coag (PPP) [Time] 29.7 second(s) Normal 25.1-36.5 [facility] Comment on above: Result Comment: Para [...] the same coagulation reagent and instrumentation as [facility]. Currently there are no coagulation studies available worldwide for children to 14 days, and no normal ranges. Heparin therapeutic range (represented by Anti-Factor Xa activity of 0.2 - 0.4 U/mL) corresponds to PTT of 56.6 - 109.0 sec. Performed By: #### 2 530907, 48555614, 7203510, 24822572, 1133356 #### [facility] [address] [place] [address] INR Coag (PPP) [Relative time] 1.0 {INR} Invalid Interpretation Code [facility] Comment on above: Result Comment: INR results are specifically intended to assess patients stabilized on long-term Anticoagulation therapy suggested INR?s ?Less Intensive Anticoagulation? 2.0 ? 3.0 Conventional Range 3.0 ? 4.5 Performed By: #### 2 268682, 36369599, 0817219, 31880539, 1816971 #### [facility] [address] [place] [address] PT Coag (PPP) [Time] 11.7 second(s) Normal 9.4-12.5 [facility] Comment on above: Result Comment: 15 [...] the same coagulation reagent and instrumentation as [facility]. Currently there are no coagulation studies available worldwide for children to 14 days, and no normal ranges. Performed By: #### 2 425703, 10314538, 7044882, 09141349, 3480115 #### [facility] [address] [place] [address] PTH INTACTon 09-14-2022 PTH, Intact 51 pg/mL Normal 15-65 [facility] Comment on above: Performed By: #### T SH, LIPID, T4, FT3, CMP #### [facility] [address] [place], [place] [address] Dr. Alicia Patel UA With Cult Reflexon 2022 Bacteria LM Ql (Urine sed) TRACE Normal Trace [facility] Comment on above: Performed By: #### 2 986925, 88025999, 8026692, 45765384, 6735246 #### [facility] [address] [place] [address] Bilirubin Ql (U) Negative Normal Negative [facility] Comment on above: Performed By: #### 2 781293, 99542065, 9536132, 80682236, 0238665 #### [facility] [address] [place] [address] Clarity (U) CLOUDY Abnormal Clear [facility] Comment on above: Performed By: #### 2 535269, 71044956, 4981550, 43142212, 8385558 #### [facility] [address] [place] [address] Color (U) YELLOW Normal Yellow [facility] Comment on above: Performed By: #### 2 074949, 77737141, 5125781, 11989503, 4663744 #### [facility] [address] [place] [address] Epithelial cells.squamous LM.HPF (Urine sed) [#/Area] 0-2 Normal 0-2 [facility] Comment on above: Performed By: #### 2 164320, 87803165, 6345646, 32105454, 2253008 #### [facility] [address] [address] Glucose Test strip (U) [Mass/Vol] Negative Normal Negative [facility] Comment on above: Performed By: #### 2 793933, 24457699, 4987225, 05968010, 6070577 #### [facility] [address] [place] [address] Hemoglobin Ql (U) 3+ Abnormal Negative [facility] Comment on above: Performed By: #### 2 922448, 30308638, 8827408, 92674302, 8587937 #### [facility] [address] [place] [address] Ketones (U) [Mass/Vol] Negative Normal Negative [facility] Comment on above: Performed By: #### 2 491830, 72890224, 0067135, 85335934, 4350198 #### [facility] [address] [place] [address] [place].plasma/[place] .RBC (Bld) [Mass ratio] >30 Abnormal 0-3 [facility] Comment on above: Performed By: #### 2 172398, 37632743, 7899493, 48383890, 4458755 #### [facility] [address] [place] [address] Mucus Ql (Urine sed) TRACE Normal [facility] Comment on above: Performed By: #### 2 133815, 51989787, 5678106, 89752080, 6812450 #### [facility] [address] [place] [address] Nitrite Ql (U) Negative Normal Negative [facility] Comment on above: Performed By: #### 2 454234, 20513518, 7213298, 82362889, 6542002 #### [facility] [address] [place] [address] pH (U) 6.0 [pH] Invalid Interpretation Code 5.0-9.0 [facility] Comment on above: Performed By: #### 2 977824, 01994023, 2289871, 79375954, 0972806 #### [facility] [address] [place] [address] Protein (U) [Mass/Vol] 2+ Abnormal Negative [facility] Comment on above: Performed By: #### 2 028044, 66463625, 9424363, 97608224, 9839297 #### [facility] [address] [place] [address] Specific gravity (U) [Rel density] 1.025 Invalid Interpretation Code 1.005-1.03 0 [facility] Comment on above: Performed By: #### 2 696014, 18264546, 3886082, 33045950, 9611467 #### [facility] [address] [place] [address] Type of Urine collection method Clean Catch Normal [facility] Comment on above: Performed By: #### 2 253581, 48515736, 2019667, 78505598, 0782151 #### [facility] [address] [place] [address] Urobilinogen Qn (U) 0.2 {Wil'U}/dL Normal 0.0-1.0 [facility] Comment on above: Performed By: #### 2 398926, 01806663, 8706296, 32119961, 2736630 #### [facility] [address] [place] [address] WBC Auto Ql (U) TRACE Abnormal Negative [facility] Comment on above: Performed By: #### 2 787849, 18054819, 4188527, 82267516, 4804699 #### [facility] [address] [place] [address] WBC casts LM.LPF (Urine sed) [#/Area] 0-3 Normal [facility] Comment on above: Performed By: #### 2 214281, 28819421, 0480643, 76095237, 7352401 #### [facility] [address] [place] [address] WBC LM.HPF (Urine sed) [#/Area] 0-5 Normal 0-5 [facility] Comment on above: Performed By: #### 2 307865, 34070615, 1097404, 83928055, 0115931 #### [facility] [address] [place] [address] XR Chest 2 Viewson 3 XR Chest [...] mGy = na DAP = na Normal [facility] eGFRon 09-14-2022 GFR/1.73 sq M.predicted among blacks MDRD (S/P/Bld) [Vol rate/Area] 37 mL/min/1.73 m2 Low >=59 [facility] Comment on above: Order Comment: Order added by Discern Expert. Result Comment: eGFR is race adjusted. AA=. Performed By: #### 2 121137, 70132300, 5078341, 85426459, 8917873 #### [facility] [address] [place] [address] GFR/1.73 sq M.predicted among non-blacks MDRD (S/P/Bld) [Vol rate/Area] 31 mL/min/1.73 m2 Low >=59 [facility] Comment on above: Order Comment: Order added by Discern Expert. Result Comment: Company Doctor christa kidney disease could be indicated at eGFR's of less than 60 mL/min/1.73m2. Kidney failure is indicated at less than 15 mL/min/1.73m2. Performed By: #### 2 259254, 00186888, 1736374, 56649739, 7333095 #### [facility] [address] [place] [address] HEMOGRAM AND PLATELon 2022 Hematocrit (Bld) [Volume fraction] 32.9 % Critically low 42.0-54.0 [facility] Comment on above: Performed By: #### T SH, LIPID, T4, FT3, CMP #### [facility] [address] [place] [address] Dr. Alicia Patel Hemoglobin (Bld) [Mass/Vol] 10.9 g/dL Critically low 14.0-18.[address] [facility] Comment on above: Performed By: #### T SH, LIPID, T4, FT3, CMP #### [facility] [address] [place] [address] Dr. Alicia Patel MCH (RBC) [Entitic mass] 32.6 pg Normal 25.9-34.[address] [facility] Comment on above: Performed By: #### T SH, LIPID, T4, FT3, CMP #### [facility] [address] [place] [address] Dr. Alicia Patel MCHC (RBC) [Mass/Vol] 33.1 g/dL Normal 29.9-35.[address] [facility] Comment on above: Performed By: #### T SH, LIPID, T4, FT3, CMP #### [facility] [address] [place] [address] Dr. Alicia Patel MCV (RBC) [Entitic vol] 98.5 fL Critically high 80.0-94.0 [facility] Comment on above: Performed By: #### T SH, LIPID, T4, FT3, CMP #### [facility] [address] [place] [address] Dr. Alicia Patel PLT 145 103/ul Critically low 150-450 [facility] Comment on above: Performed By: #### T SH, LIPID, T4, FT3, CMP #### [facility] [address] [place] [address] Dr. lAicia Patel RBC 3.34 106/ul Critically low 4.70-6.10 [facility] Comment on above: Performed By: #### T SH, LIPID, T4, FT3, CMP #### [facility] [address] [place] [address] Dr. Alicia Patel WBC 5.1 103/ul Normal 4.0-11.0 [facility] Comment on above: Performed By: #### T SH, LIPID, T4, FT3, CMP #### [facility] [address] [place] [address] Dr. Alicia Patel MAGNESIUMon 09-13-2022 Magnesium [Mass/Vol] 1.5 mg/dL Critically low 1.8-2.4 [facility] Comment on above: Performed By: #### T SH, LIPID, T4, FT3, CMP #### [facility] [address] [place] [address] Dr. Alicia Patel RENAL FUNCTION PANELon 09-13 Albumin [Mass/Vol] 3.5 g/dL Normal 3.4-5.0 [facility] Comment on above: Performed By: #### U RTPCR #### [facility] [address] [place] [address] Dr. Alicia Patel Calcium [Mass/Vol] 8.4 mg/dL Critically low 8.5-10.1 [facility] Comment on above: Performed By: #### U RTPCR #### [facility] [address] [address] [address] Alicia Patel Chloride [Moles/Vol] 107 mmol/L Normal 98-107 [facility] Comment on above: Performed By: #### U RTPCR #### [facility] [address] [address] [address] Alicia Patel CO2 [Moles/Vol] 25.1 mmol/L Normal 21.0-32.0 [facility] Comment on above: Performed By: #### U RTPCR #### [facility] [address] [address] [address] Alicia Patel Creatinine [Mass/Vol] 1.96 mg/dL Critically high 0.70-1.30 [facility] Comment on above: Performed By: #### U RTPCR #### [facility] [address] [place] [address] Dr. Alicia Patel EGFR-AF SENEGALESE 40 mL/min/1.73m2 Critically low >=60 [facility] Comment on above: Performed By: #### U RTPCR #### [facility] [address] [place] [address] Dr. Alicia Patel EGFR-NON AF SENEGALESE 33 mL/min/1.73m2 Critically low >=60 [facility] Comment on above: Performed By: #### U RTPCR #### [facility] [address] [place] [address] Dr. Alicia Patel Glucose [Mass/Vol] 151 mg/dL Critically high 74-106 [facility] Comment on above: Performed By: #### U RTPCR #### [facility] [address] [address] [address] Alicia Patel Phosphate [Mass/Vol] 3.5 mg/dL Normal 2.6-4.7 [facility] Comment on above: Performed By: #### U RTPCR #### [facility] [address] [address] [address] Alicia Patel Potassium [Moles/Vol] 4.3 mmol/L Normal 3.5-5.1 [facility] Comment on above: Performed By: #### U RTPCR #### [facility] [address] [place] [address] Dr. Alicia Patel Sodium [Moles/Vol] 142 mmol/L Normal 136-145 [facility] Comment on above: Performed By: #### U RTPCR #### [facility] [address] [place] [address] Dr. Alicia Patel Urea nitrogen [Mass/Vol] 23.0 mg/dL Critically high 7.0-18.0 [facility] Comment on above: Performed By: #### U RTPCR #### [facility] [address] [place] [address] Dr. Alicia Patel UA RANDOM W/MICROSCOPICon BACTERIA TRACE Abnormal NONE SEEN [facility] Comment on above: Performed By: #### T SH, LIPID, T4, FT3, CMP #### [facility] [address] [place] [address] Dr. Alicia Patel Bilirubin Ql (U) Negative Normal NEGATIVE [facility] Comment on above: Performed By: #### T SH, LIPID, T4, FT3, CMP #### [facility] [address] [place] [address] Dr. Alicia Patel CAST NONE SEEN Normal NONE SEEN [facility] Comment on above: Performed By: #### T SH, LIPID, T4, FT3, CMP #### [facility] [address] [place] [address] Dr. Alicia Patel Clarity (U) CLEAR Normal CLEAR [facility] Comment on above: Performed By: #### T SH, LIPID, T4, FT3, CMP #### [facility] [address] [place] [address] Dr. Alicia Patel Color (U) LT. YELLOW Normal YELLOW [facility] Comment on above: Performed By: #### T SH, LIPID, T4, FT3, CMP #### [facility] [address] [place] [address] Dr. Alicia Patel Crystals LM Nom (Urine sed) NONE SEEN Normal NONE SEEN [facility] Comment on above: Performed By: #### T SH, LIPID, T4, FT3, CMP #### [facility] [address] [address] [address] Alicia Patel Epithelial cells LM Ql (Urine sed) RARE Normal NONE SEEN /RARE [facility] Comment on above: Performed By: #### T SH, LIPID, T4, FT3, CMP #### [facility] [address] [address] [address] Alicia Patel Glucose Ql (U) 500 mg/dl Abnormal NEGATIVE [facility] Comment on above: Performed By: #### T SH, LIPID, T4, FT3, CMP #### [facility] [address] [address] [address] Alicia Patel Hemoglobin Ql (U) LARGE Abnormal NEGATIVE [facility] Comment on above: Performed By: #### T SH, LIPID, T4, FT3, CMP #### [facility] [address] [place] [address] Dr. Alicia Patel Ketones Ql (U) Negative Normal NEGATIVE [facility] Comment on above: Performed By: #### T SH, LIPID, T4, FT3, CMP #### [facility] [address] [place] [address] Dr. Alicia Patel LEUKOCYTES Negative Normal NEGATIVE [facility] Comment on above: Performed By: #### T SH, LIPID, T4, FT3, CMP #### [facility] [address] [address] [address] Alicia Patel MUCOUS NONE SEEN Normal NONE SEEN [facility] Comment on above: Performed By: #### T SH, LIPID, T4, FT3, CMP #### [facility] [address] [address] [address] Alicia Patel Nitrite Ql (U) Negative Normal NEGATIVE [facility] Comment on above: Performed By: #### T SH, LIPID, T4, FT3, CMP #### [facility] [address] [address] [address] Alicia Patel pH (U) 6.0 [pH] Normal 5-[address] [facility] Comment on above: Performed By: #### T SH, LIPID, T4, FT3, CMP #### [facility] [address] [place] [address] Dr. Alicia Patel RBC 20-50 Abnormal 0-[address] [facility] Comment on above: Performed By: #### T SH, LIPID, T4, FT3, CMP #### [facility] [address] [place] [address] Dr. Alicia Patel SPEC GRAVITY 1.020 Normal 1.005-<=1. [address] [facility] Comment on above: Performed By: #### T SH, LIPID, T4, FT3, CMP #### [facility] [address] [place] [address] Dr. Alicia Patel UA PROTEIN 100 mg/dl Abnormal NEGATIVE/ TRACE [facility] Comment on above: Performed By: #### T SH, LIPID, T4, FT3, CMP #### [facility] [address] [place] [address] Dr. Alicia Patel Urobilinogen Qn (U) 0.2 {Wil'U}/dL Normal 0.2 - 1. 0 [facility] Comment on above: Performed By: #### T SH, LIPID, T4, FT3, CMP #### [facility] [address] [place] [address] Dr. Alicia Patel WBC 0-2 Abnormal NONE SEEN [facility] Comment on above: Performed By: #### T SH, LIPID, T4, FT3, CMP #### [facility] [address] [place] [address] Dr. Alicia Patel URIC ACID SERUMon 09-13-2022 Urate [Mass/Vol] 5.8 mg/dL Normal 3.5-7.[address] [facility] Comment on above: Performed By: #### U RTPCR #### [facility] [address] [place] [address] Dr. Alicia Patel URINE T PROTEIN CREAT RATIOo n 09-13-2022 Protein (U) [Mass/Vol] 122.4 mg/dL Critically high <=12.[address] [facility] Comment on above: Performed By: #### U RTPCR #### [facility] [address] [place] [address] Dr. Alicia Patel UR PROT CREAT RAT 1.38 Normal [facility] Comment on above: Performed By: #### U RTPCR #### [facility] [address] [address] [address] Alicia Patel URINE CREAT 88.74 mg/dL Normal 20.00-300. 00 [facility] Comment on above: Performed By: #### U RTPCR #### [facility] [address] [address] [address] Alicia Patel VITAMIN D 25 OHon 09-13-2022 VIT D 25-OH 58.0 ng/mL Normal [facility] Comment on above: Performed By: #### T SH, LIPID, T4, FT3, CMP #### [facility] [address] [place] [address] Dr. Alicia Patel VIT D RANGES SEE BELOW Normal [facility] Comment on above: Result Comment: <20 ng/mL Vit D deficient 20 - <30 ng/mL Vit D insufficient 30 - 100 ng/mL Vit D sufficient >100 ng/mL Potential Toxicity Performed By: #### T SH, LIPID, T4, FT3, CMP #### [facility] [address] [place] [address] Dr. Alicia Patel Pre-Certification Formon Pre-Certification Form [id number]:127 Normal [facility] RAD - Ultrasound Reporton RAD - Ultrasound Report [id number]:127 Normal [facility] Screenson 09-07-2022 Screens [id number]:12 7 Normal [facility] Patient Educationon 09-07-19 23 Patient Education [...] these instructions at home: Medicines ? Take hkdn-pqn-ojyspil and prescription medicines only as told by [...] 11/29/2008 Document Revised: 10/30/2019 Document Reviewed: 10/30/2019 [employer] Patient Education ? 2019 [employer] Isamar Carrillo [facility] Urology Office/Clinic Noteon 09-06-2022 Urology Office/Clinic Note Chief Complaint Pt is here for [facility] ER f/u HPI Staff Victorino is a 82 y.o. male here for hospital follow up. Pt was seen at [facility]. Previous Dx: acute kidney failure, BPH w/ urinary obstruction, elevated PSA, ED, flank pain, hydronephrosis, kidney stone, prostate cancer, ureteral stone, urinary retention. S/P cysto/stent removal done on 04/15/20, cysto/bilateral dilation ureteral/stent done on 03/11/20, TURP done on 08/01/19, biopsy of prostate done on 07/04/19, cysto/RG/laser done on 06/27/19. Pt presented to [facility] on 08/11/22 for shortness of breath. Pt presented to [facility] later that evening on 08/11/22 for abdominal [...] CT scan performed at the [facility]. The options include both nephroscopic/ureteroscopic [...] off asp (more content not included)... Normal [facility] Comment on above: Result Comment: Elec [...] Date: 2022-09-01 09:33 Normal [address] [facility] CT chest wo con high reson 0 08-31-2022 CT chest wo con high res [facility] [place] [address] [place] [id number] Scan Report Signed Patient: Victorino Smyth MR#: [id number] : 1940 Acct:[id number] Age/Sex: 82 / M ADM Date: 08/31/22 Loc: CT Room: Type: [facility] Attending Dr: Hiral Interiano MD Copies to: Hiral Interiano MD Ordering Provider: Hiral Interiano MD Date of Service: 08/31/22 CT/CT chest wo con high res: follow up left lower lung nodule CT CHEST WITHOUT IV CONTRAST: High-resolution protocol. CLINICAL HISTORY: Lung nodule seen on outside imaging. COMPARISON: CT abdomen and pelvis from [facility] 08/11/2022 TECHNIQUE: Spiral images were [...] Perez Jr., DManoharOManohar08/31/2022 3:25 PM Dictation Location: [place] [address] Transcribed By: [facility] 08/31/22 1525 Dictated By: Ifeanyi Perez Jr, DO 08/31/22 1520 Signed By: 08/31/22 1525 Normal [facility] PSA, FREE AND TOTAL RATIOon 08-25-2022 % Free PSA 13.7 % Normal [facility] Comment on above: Result Comment: The [...] LIPID, T4, FT3, CMP #### [facility] [address] [place] [address] Dr. Alicia Patel Prostate specific Ag [Mass/Vol] 6.2 ng/mL Critically high 0.0-4.0 [facility] Comment on above: Result Comment: Dwight JUAREZ methodology. . According to the [place] [employer], Serum PSA should decrease and [...] LIPID, T4, FT3, CMP #### [facility] [address] [address] [address] Alicia Patel PSA, Free 0.85 ng/mL Normal N/A [facility] Comment on above: Result Comment: Dwight linares ECLIA methodology. Performed By: #### T SH, LIPID, T4, FT3, CMP #### [facility] [address] [place] [address] Dr. Alicia DAVALOS BLD IMMUNO SCREENon 07-29 OCCULT BLOOD Negative Normal NEGATIVE [facility] Comment on above: Performed By: #### T SH, LIPID, T4, FT3, CMP #### [facility] [address] [place] [address] Dr. Alicia Patel CBC AUTO DIFFon 08-21-2022 BASO # 0.0 103/ul Normal 0.0-0.1 [facility] Comment on above: Performed By: #### U RTPCR #### [facility] [address] [place] [address] Dr. Alicia Patel Basophils/100 WBC (Bld) 0.3 % Normal 0.2-2.0 [facility] Comment on above: Performed By: #### U RTPCR #### [facility] [address] [place] [address] Dr. Alicia Patel EO # 0.2 103/ul Normal 0.0-0.7 [facility] Comment on above: Performed By: #### U RTPCR #### [facility] [address] [place] [address] Dr. Alicia Patel Eosinophils/100 WBC (Bld) 3.2 % Normal 0.9-7.0 [facility] Comment on above: Performed By: #### U RTPCR #### [facility] [address] [place] [address] Dr. Alicia Patel Erythrocyte distribution width (RBC) [Ratio] 12.9 % Normal 11.0-15.0 [facility] Comment on above: Performed By: #### U RTPCR #### [facility] [address] [place] [address] Dr. Alicia Patel Hematocrit (Bld) [Volume fraction] 35.4 % Critically low 42.0-54.0 [facility] Comment on above: Performed By: #### U RTPCR #### [facility] [address] [place] [address] Dr. Alicia Patel Hemoglobin (Bld) [Mass/Vol] 11.7 g/dL Critically low 14.0-18.0 [facility] Comment on above: Performed By: #### U RTPCR #### [facility] [address] [place] [address] Dr. Alicia Patel IG # 0.08 10e3/ul Critically high 0.00-0.03 [facility] Comment on above: Performed By: #### U RTPCR #### [facility] [address] [place] [address] Dr. Alicia Patel IG % 1.2 % Critically high 0.0-0.5 [facility] Comment on above: Performed By: #### U RTPCR #### [facility] [address] [place] [address] Dr. Alicia Patel LYMPH # 1.1 103/ul Critically low 1.2-3.8 [facility] Comment on above: Performed By: #### U RTPCR #### [facility] [address] [place] [address] Dr. Alicia Patel Lymphocytes/100 WBC (Bld) 16.6 % Critically low 20.5-60.0 [facility] Comment on above: Performed By: #### U RTPCR #### [facility] [address] [place] [address] Dr. Alicia Patel MANUAL DIFF REQ NO Normal [facility] Comment on above: Performed By: #### U RTPCR #### [facility] [address] [place] [address] Dr. Alicia Patel MCH (RBC) [Entitic mass] 32.4 pg Normal 25.9-34.[address] [facility] Comment on above: Performed By: #### U RTPCR #### [facility] [address] [place] [address] Dr. Alicia Patel MCHC (RBC) [Mass/Vol] 33.1 g/dL Normal 29.9-35.[address] [facility] Comment on above: Performed By: #### U RTPCR #### [facility] [address] [address] [address] Alicia Patel MCV (RBC) [Entitic vol] 98.1 fL Critically high 80.0-94.0 [facility] Comment on above: Performed By: #### U RTPCR #### [facility] [address] [place] [address] Dr. Alicia Patel MONO # 0.6 103/ul Normal 0.3-0.[address] [facility] Comment on above: Performed By: #### U RTPCR #### [facility] [address] [place] [address] Dr. Alicia Patel Monocytes/100 WBC (Bld) 8.8 % Normal 1.7-12.0 [facility] Comment on above: Performed By: #### U RTPCR #### [facility] [address] [place] [address] Dr. Alicia Patel NEUT # 4.8 103/ul Normal 1.4-6.5 [facility] Comment on above: Performed By: #### U RTPCR #### [facility] [address] [place] [address] Dr. Alicia Patel Neutrophils/100 WBC (Bld) 69.9 % Normal 43.0-75.0 [facility] Comment on above: Performed By: #### U RTPCR #### [facility] [address] [place] [address] Dr. Alicia Patel Platelet mean volume (Bld) [Entitic vol] 10.4 fL Normal 9.5-13.[address] [facility] Comment on above: Performed By: #### U RTPCR #### [facility] [address] [place] [address] Dr. Alicia Patel PLT 200 103/ul Normal 150-[address] [facility] Comment on above: Performed By: #### U RTPCR #### [facility] [address] [place] [address] Dr. Alicia Patel RBC 3.61 106/ul Critically low 4.70-6.[address] [facility] Comment on above: Performed By: #### U RTPCR #### [facility] [address] [address] [address] Alicia Patel WBC 6.8 103/ul Normal 4.0-11.0 [facility] Comment on above: Performed By: #### U RTPCR #### [facility] [address] [place] [address] Dr. Alicia Patel FREE T3on 08-21-2022 FREE T3 1.91 pg/mlL Critically low 2.18-3.98 [facility] Comment on above: Performed By: #### T SH, LIPID, T4, FT3, CMP #### [facility] [address] [place] [address] Dr. Alicia Patel GLYCOHEMOGLOBIN A1Con 2022 ADA RECOMMENDATION SEE BELOW Normal [facility] Comment on above: Result Comment: ADA RECOMMENDED LIMIT 4.0 - 6.0 ADA THERAPEUTIC TARGET < 7.0 ACTION SUGGESTED > 7.0 Performed By: #### T SH, LIPID, T4, FT3, CMP #### [facility] [address] [place] [address] Dr. Alicia Patel Glucose [Mass/Vol] 194 mg/dL Normal [facility] Comment on above: Performed By: #### T SH, LIPID, T4, FT3, CMP #### [facility] [address] [place] [address] Dr. Alicia Patel HbA1c (Bld) [Mass fraction] 8.4 % Critically high 4.5-6.2 [facility] Comment on above: Performed By: #### T SH, LIPID, T4, FT3, CMP #### [facility] [address] [place] [address] Dr. Alicia Patel LIPID PROFILEon 08-21-2022 CHOL-HDL RATIO NORM SEE BELOW Normal The [facility] Comment on above: Result Comment: 3.3 - 4.4 LOW RISK 4.4 - 7.1 AVERAGE RISK 7.1 - 11.0 MODERATE RISK >11.0 HIGH RISK Performed By: #### T SH, LIPID, T4, FT3, CMP #### [facility] [address] [place] [address] Dr. Alicia Patel Cholesterol [Mass/Vol] 120 mg/dL Normal <=[address] [facility] Comment on above: Performed By: #### T SH, LIPID, T4, FT3, CMP #### [facility] [address] [address] [address] Alicia Patel Cholesterol in HDL [Mass/Vol] 30 mg/dL Critically low 40-60 [facility] Comment on above: Performed By: #### T SH, LIPID, T4, FT3, CMP #### [facility] [address] [address] [address] Alicia Patel Cholesterol in LDL [Mass/Vol] 59.8 mg/dL Normal [facility] Comment on above: Performed By: #### T SH, LIPID, T4, FT3, CMP #### [facility] [address] [place] [address] Dr. Alicia Patel Cholesterol.total/Chol esterol in HDL [Mass ratio] 4.0 {ratio} Normal [facility] Comment on above: Performed By: #### T SH, LIPID, T4, FT3, CMP #### [facility] [address] [place] [address] Dr. Alicia Patel HDL NORMAL > or = 60 mg/dl - LO W CARDIOVASCULAR RISK <40 mg/dl - HIGH CARDIOVASCULAR RISK Normal [facility] Comment on above: Performed By: #### T SH, LIPID, T4, FT3, CMP #### [facility] [address] [place] [address] Dr. Alicia Patel LDL CALC NORMAL SEE BELOW Normal [facility] Comment on above: Result Comment: <100 mg/dl OPTIMAL 100 - 129 mg/dl NEAR OR ABOVE OPTIMAL 130 - 159 mg/dl BORDERLINE HIGH 160 - 189 mg/dl HIGH >190 mg/dl VERY HIGH Performed By: #### T SH, LIPID, T4, FT3, CMP #### [facility] [address] [place] [address] Dr. Alicia Patel Triglyceride [Mass/Vol] 151 mg/dL Critically high <=150 [facility] Comment on above: Performed By: #### T SH, LIPID, T4, FT3, CMP #### [facility] [address] [address] [address] Alicia Patel VLDL CALC 30.2 mg/dL Normal [facility] Comment on above: Performed By: #### T SH, LIPID, T4, FT3, CMP #### [facility] [address] [place] [address] Dr. Alicia Patel PROF 14(COMP METB)on 023 Albumin [Mass/Vol] 3.3 g/dL Critically low 3.4-5.0 [facility] Comment on above: Performed By: #### T SH, LIPID, T4, FT3, CMP #### [facility] [address] [place] [address] Dr. Alicia Patel Albumin/Globulin [Mass ratio] 0.9 {ratio} Normal [facility] Comment on above: Performed By: #### T SH, LIPID, T4, FT3, CMP #### [facility] [address] [place] [address] Dr. Alicia Patel ALP [Catalytic activity/Vol] 79 U/L Normal 46-116 [facility] Comment on above: Performed By: #### T SH, LIPID, T4, FT3, CMP #### [facility] [address] [address] [address] Alicia Patel ALT [Catalytic activity/Vol] 61 U/L Normal 16-63 [facility] Comment on above: Performed By: #### T SH, LIPID, T4, FT3, CMP #### [facility] [address] [address] [address] Alicia Patel Anion gap [Moles/Vol] 12.6 mmol/L Normal [facility] Comment on above: Performed By: #### T SH, LIPID, T4, FT3, CMP #### [facility] [address] [place] [address] Dr. Alicia Patel AST [Catalytic activity/Vol] 39 U/L Critically high 15-37 [facility] Comment on above: Performed By: #### T SH, LIPID, T4, FT3, CMP #### [facility] [address] [place] [address] Dr. Alicia Patel Bilirubin [Mass/Vol] 0.7 mg/dL Normal 0.2-1.[address] [facility] Comment on above: Performed By: #### T SH, LIPID, T4, FT3, CMP #### [facility] [address] [place] [address] Dr. Alicia Patel Calcium [Mass/Vol] 8.9 mg/dL Normal 8.5-10.[address] [facility] Comment on above: Performed By: #### T SH, LIPID, T4, FT3, CMP #### [facility] [address] [place] [address] Dr. Alicia Patel Chloride [Moles/Vol] 111 mmol/L Critically high 98-[address] [facility] Comment on above: Performed By: #### T SH, LIPID, T4, FT3, CMP #### [facility] [address] [place] [address] Dr. Alicia Patel CO2 [Moles/Vol] 24.0 mmol/L Normal 21.0-32.[address] [facility] Comment on above: Performed By: #### T SH, LIPID, T4, FT3, CMP #### [facility] [address] [place] [address] Dr. Alicia Patel Creatinine [Mass/Vol] 1.80 mg/dL Critically high 0.70-1.[address] [facility] Comment on above: Performed By: #### T SH, LIPID, T4, FT3, CMP #### [facility] [address] [place] [address] Dr. Alicia Patel EGFR-AF SENEGALESE 44 mL/min/1.73m2 Critically low >=[address] [facility] Comment on above: Performed By: #### T SH, LIPID, T4, FT3, CMP #### [facility] [address] [place] [address] Dr. Alicia Patel EGFR-NON AF SENEGALESE 36 mL/min/1.73m2 Critically low >=[address] [facility] Comment on above: Performed By: #### T SH, LIPID, T4, FT3, CMP #### [facility] [address] [place] [address] Dr. Alicia Patel Globulin (S) [Mass/Vol] 3.5 g/dL Normal [facility] Comment on above: Performed By: #### T SH, LIPID, T4, FT3, CMP #### [facility] [address] [address] [address] Alicia Patel Glucose [Mass/Vol] 118 mg/dL Critically high 74-106 T [facility] Comment on above: Performed By: #### T SH, LIPID, T4, FT3, CMP #### [facility] [address] [address] [address] Alicia Patel Potassium [Moles/Vol] 4.6 mmol/L Normal 3.5-5.1 [facility] Comment on above: Performed By: #### T SH, LIPID, T4, FT3, CMP #### [facility] [address] [place] [address] Dr. Alicia Patel Protein [Mass/Vol] 6.8 g/dL Normal 6.4-8.[address] [facility] Comment on above: Performed By: #### T SH, LIPID, T4, FT3, CMP #### [facility] [address] [place] [address] Dr. Alicia Patel Sodium [Moles/Vol] 143 mmol/L Normal 136-145 [facility] Comment on above: Performed By: #### T SH, LIPID, T4, FT3, CMP #### [facility] [address] [place] [address] Dr. Alicia Patel Urea nitrogen [Mass/Vol] 31.0 mg/dL Critically high 7.0-18.0 [facility] Comment on above: Performed By: #### T SH, LIPID, T4, FT3, CMP #### [facility] [address] [place] [address] Dr. Alicia Patel Urea nitrogen/Creatinine [Mass ratio] 17.2 mg/mg Normal [facility] Comment on above: Performed By: #### T SH, LIPID, T4, FT3, CMP #### [facility] [address] [place] [address] Dr. Alicia Patel T4on 08-21-2022 T4 [Mass/Vol] 7.70 ug/dL Normal 4.50-12.10 [facility] Comment on above: Performed By: #### T SH, LIPID, T4, FT3, CMP #### [facility] [address] [place] [address] Dr. Alicia Patel TSHon 08-21-2022 TSH 1.138 uIU/mL Normal 0.358-3.74 0 [facility] Comment on above: Performed By: #### T SH, LIPID, T4, FT3, CMP #### [facility] [address] [place] [address] Dr. Alicia Patel RENAL FUNCTION PANELon 08-18 Albumin [Mass/Vol] 3.3 g/dL Critically low 3.4-5.0 [facility] Comment on above: Performed By: #### U RTPCR #### [facility] [address] [place] [address] Dr. Alicia Patel Calcium [Mass/Vol] 8.3 mg/dL Critically low 8.5-10.1 [facility] Comment on above: Performed By: #### U RTPCR #### [facility] [address] [place] [address] Dr. Alicia Patel Chloride [Moles/Vol] 109 mmol/L Critically high 98-107 [facility] Comment on above: Performed By: #### U RTPCR #### [facility] [address] [place] [address] Dr. Alicia Patel CO2 [Moles/Vol] 22.1 mmol/L Normal 21.0-32.0 [facility] Comment on above: Performed By: #### U RTPCR #### [facility] [address] [place] [address] Dr. Alicia Patel Creatinine [Mass/Vol] 2.14 mg/dL Critically high 0.70-1.30 [facility] Comment on above: Performed By: #### U RTPCR #### [facility] [address] [place] [address] Dr. Alicia Patel EGFR-AF SENEGALESE 36 mL/min/1.73m2 Critically low >=60 [facility] Comment on above: Performed By: #### U RTPCR #### [facility] [address] [address] [address] Alicia Patel EGFR-NON AF SENEGALESE 30 mL/min/1.73m2 Critically low >=60 [facility] Comment on above: Performed By: #### U RTPCR #### [facility] [address] [address] [address] Alicia Patel Glucose [Mass/Vol] 102 mg/dL Normal 74-106 [facility] Comment on above: Performed By: #### U RTPCR #### [facility] [address] [address] [address] Alicia Patel Phosphate [Mass/Vol] 3.1 mg/dL Normal 2.6-4.7 [facility] Comment on above: Performed By: #### U RTPCR #### [facility] [address] [address] [address] Alicia Patel Potassium [Moles/Vol] 3.9 mmol/L Normal 3.5-5.1 [facility] Comment on above: Performed By: #### U RTPCR #### [facility] [address] [address] [address] Alicia Patel Sodium [Moles/Vol] 141 mmol/L Normal 136-145 [facility] Comment on above: Performed By: #### U RTPCR #### [facility] [address] [address] [address] Alicia Patel Urea nitrogen [Mass/Vol] 41.0 mg/dL Critically high 7.0-18.0 [facility] Comment on above: Performed By: #### U RTPCR #### [facility] [address] [address] [address] Alicia Patel ED Note-Physicianon 08-17-19 ED Note-Physician [id number]:127 Normal [facility] RAD - CT Reporton 08-17-2022 RAD - CT Report [id number]:127 [facility] RAD - MISCon 08-17-2022 RAD [facility] [id number]:127 [facility] MIS [id number]#1.00CD:127 [facility] Insurance Correspondence Off iceon 08-16-2022 Insurance Correspondence Office [id number]:127 [facility] Basic Metabolic Panelon 07-28 Creatinine Clr Calc Pharmacy [facility] Comment on above: Result Comment: PERF ORMED BY: [place] [address] PATHOLOGIST [employer] DIANDRA LACY M.D. Performed By: #### P T #### [address] Estimated GFR ( Yana 21 [facility] Comment on above: Result Comment: GFR estimated reference range: According to KDOQI guidelines, <60 ml/min/1.73m2 is sufficient to diagnose a patient with chronic kidney disease. Performed By: #### P T #### [address] Estimated GFR (Non- Am 17 [facility] Comment on above: Performed By: #### P T #### [address] Estimated glomerular filtrat ion rate (GFR) non- AmericanOrdered By: Hiral Interiano on 08-15-2022 GFR/1.73 sq M.predicted among non-blacks MDRD (S/P/Bld) [Vol rate/Area] 17 mL/Min [facility] Glucose Glucometer (BldC) [M ass/Vol]Ordered By: Hiral Interiano on 08-15-2022 Glucose [Mass/Vol] 135 mg/dL [facility] Comment on above: Random Glucose Refer ence Range is dependent on time and content of last meal. Glucose of more than 200 mg/dL in a nonstressed, ambulatory subject supports the diagnosis of Diabetes Mellitus. Glucose Poct Glucometerson 0 08-15-2022 Glucose [Mass/Vol] 135 mg/dL Normal [facility] Comment on above: Result Comment: [place] [facility] Glucose Reference Range is dependent on time and content of last meal. Glucose of more than 200 mg/dL in a nonstressed, ambulatory subject supports the diagnosis of Diabetes Mellitus. PERFORMED BY: [place] [address] PATHOLOGIST [employer] DIANDRA LACY M.D. Performed By: #### G LULS ####Point of Care testing, Glucose [Mass/Vol] 163 mg/dL Normal [facility] Comment on above: Result Comment: [facility] Glucose Reference Range is dependent on time and content of last meal. Glucose of more than 200 mg/dL in a nonstressed, ambulatory subject supports the diagnosis of Diabetes Mellitus. PERFORMED BY: [place] [address] PATHOLOGIST [employer]PER[employer] DIANDRA LACY M.D. Performed By: #### P T #### [facility] [address] [place] [address] No Panel InformationOrdered By: Hiral Interiano on 08-15-2022 Estimated GFR () 21 mL/Min [facility] Comment on above: GFR estimated refere nce range: According to KDOQI guidelines, <60 ml/min/1.73m2 is sufficient to diagnose a patient with chronic kidney disease. Pharmacy Creatinine Clearance (Chem 21.94 [facility] Serum or plasma anion gap de terminationOrdered By: Hiral Interiano on 08-15-2022 Anion gap [Moles/Vol] 10.3 mmol/L Normal 6.0-15.0 [facility] Comment on above: Performed By: #### P T #### [facility] [address] [place] [address] Serum or plasma calcium alpesh urement (mass/volume)Ordered By: Hiral Interiano on 08-15-2022 Calcium [Mass/Vol] 7.7 mg/dL Low 8.2-10.2 [facility] Comment on above: Performed By: #### P T #### [facility] [address] Serum or plasma chloride adina surement (moles/volume)Ordered By: Hiral Interiano on 08-15-2022 Chloride [Moles/Vol] 112 mmol/L Normal 95-114 [facility] Comment on above: Performed By: #### P T #### [address] Serum or plasma creatinine m easurement with calculation of estimated glomerular filtrOrdered By: Hiral Interiano on 08-15-2022 Creatinine [Mass/Vol] 3.46 mg/dL Significan t change up 0.64-1.27 [facility] Comment on above: Delta: 6.60 on 08/14-432 Performed By: #### P T #### [address] Serum or plasma glucose alpesh urement (mass/volume)Ordered By: Hiral Interiano on 08-15-2022 Glucose [Mass/Vol] 140 mg/dL High 70-100 [facility] Comment on above: ADA recommended refe rence rangeRandom Glucose Reference Range is dependent on time and content of last meal. Glucose of more than 200 mg/dL in a nonstressed, ambulatory subject supports the diagnosis of Diabetes Mellitus. Result Comment: [place] [facility] Glucose Reference Range is dependent on time and content of last meal. Glucose of more than 200 mg/dL in a nonstressed, ambulatory subject supports the diagnosis of Diabetes Mellitus. ADA recommended reference range Performed By: #### P T #### [facility] [address] Serum or plasma potassium me asurement (moles/volume)Ordered By: Hiral Interiano on 08-15-2022 Potassium [Moles/Vol] 3.8 mmol/L Normal 3.5-5.1 [facility] Comment on above: Performed By: #### P T #### [address] Serum or plasma sodium measu rement (moles/volume)Ordered By: Hiral Interiano on 08-15-2022 Sodium [Moles/Vol] 140 mmol/L Normal 136-146 [facility] Comment on above: Performed By: #### P T #### [address] Serum or plasma total carbon dioxide measurement (moles/volume)Ordered By: Hiral Interiano on 08-15-2022 CO2 [Moles/Vol] 21.5 mmol/L Low 22.0-30.0 [facility] Comment on above: Performed By: #### P T #### [address] Serum or plasma urea nitroge n measurement (mass/volume)Ordered By: Hiral Interiano on 08-15-2022 Urea nitrogen [Mass/Vol] 45 mg/dL High 9-23 [facility] Comment on above: Performed By: #### P T #### [address] Aerobic Cultureon 08-14-2022 Aerobic Culture ORGANISM: Rosanna al bicans (O:CANALB) Quantity of Growth Light Growth Gram Stain Result 3+ Epithelial Cells 2+ White Blood Cells 3+ Gram Positive Cocci 2+ Gram Negative Bacilli PERFORMED BY: [place] [address] PATHOLOGIST [employer] SUPERVISOR DIANDRA LACY M.D. [facility] Comment on above: Performed By: #### B MP #### [address] Basic Metabolic Panelon 07-28 Anion gap [Moles/Vol] 13.0 mmol/L Normal 6.0-15.0 [facility] Comment on above: Performed By: #### C BC, BMP ####[facility] [address] [place] [address] Calcium [Mass/Vol] 7.3 mg/dL Low 8.2-10.2 [facility] Comment on above: Performed By: #### C BC, BMP ####[facility] [place] [address] [facility] Chloride [Moles/Vol] 109 mmol/L Normal 95-114 [facility] Comment on above: Performed By: #### C BC, BMP ####[facility] [place] [address] [facility] CO2 [Moles/Vol] 21.9 mmol/L Low 22.0-30.0 [facility] Comment on above: Performed By: #### C BC, BMP ####[facility] [address] [place] [address] [facility] Creatinine [Mass/Vol] 6.60 mg/dL Significan t change up 0.64-1.27 [facility] Comment on above: Performed By: #### C BC, BMP ####[place] [address] [place] [address] [facility] Creatinine Clr Calc Pharmacy 11.49 [facility] Comment on above: Result Comment: PERF ORMED BY: [facility] [address] [place] [id number] PATHOLOGIST [employer] SUPERVISOR DIANDRA LACY M.D. Performed By: #### C BC, BMP ####[place] [address] [place] [address] [facility] Estimated GFR ( Yana 10 [facility] Comment on above: Result Comment: GFR estimated reference range: According to KDOQI guidelines, <60 ml/min/1.73m2 is sufficient to diagnose a patient with chronic kidney disease. Performed By: #### C BC, BMP ####[facility] [place] [address] [facility] Estimated GFR (Non- Am 8 [facility] Comment on above: Performed By: #### C BC, BMP ####[place] [place] [address] [facility] Glucose [Mass/Vol] 140 mg/dL High 70-100 [facility] Comment on above: Result Comment: [place] Glucose Reference Range is dependent on time and content of last meal. Glucose of more than 200 mg/dL in a nonstressed, ambulatory subject supports the diagnosis of Diabetes Mellitus. ADA recommended reference range Performed By: #### C BC, BMP ####[facility] [place] [address] [facility] Potassium [Moles/Vol] 3.9 mmol/L Normal 3.5-5.1 [facility] Comment on above: Performed By: #### C BC, BMP ####[place] [address] [place] [address] [facility] Sodium [Moles/Vol] 140 mmol/L Normal 136-146 [facility] Comment on above: Performed By: #### C BC, BMP ####[place] [address] [place] [id number] [facility] Urea nitrogen [Mass/Vol] 61 mg/dL High 9- [facility] Comment on above: Performed By: #### C BC, BMP ####[place] [id number] [place] Basophils Auto (Bld) [#/Vol] Ordered By: Hiral Interiano on 08-14-2022 Basophils (Bld) [#/Vol] 0.0 10*3/uL 0.0-0.2 [facility] Basophils/100 WBC Auto (Bld) Ordered By: Hiral Interiano on 08-14-2022 Basophils/100 WBC (Bld) 0.2 % . [facility] Complete Blood Count Auto Di ffon 08-14-2022 Basophils (Bld) [#/Vol] 0.0 10*3/uL Normal 0.0-0.2 [facility] Comment on above: Result Comment: PERF ORMED BY: [facility] [address] [place] [id number] PATHOLOGIST [employer] SUPERVISOR DIANDRA LACY M.D. Performed By: #### C BC, BMP ####[place] [address] [place] [id number] [facility] Basophils/100 WBC (Bld) 0.2 % Normal . [facility] Comment on above: Performed By: #### C BC, BMP ####[facility] Eosinophils (Bld) [#/Vol] 0.1 10*3/uL Normal 0.0-0.45 [facility] Comment on above: Performed By: #### C RUDOLPH, BMP ####[address] Eosinophils/100 WBC (Bld) 1.0 % Normal . [facility] Comment on above: Performed By: #### C BC, BMP ####[address] Erythrocyte distribution width (RBC) [Ratio] 13.5 % Normal 12.0-14.8 [facility] Comment on above: Performed By: #### C RUDOLPH, BMP ####[address] Hematocrit (Bld) [Volume fraction] 35.4 % Low 38.8-50.0 [facility] Comment on above: Performed By: #### C RUDOLPH, BMP ####[address] Hemoglobin (Bld) [Mass/Vol] 12.0 g/dL Low 13.0-17.0 [facility] Comment on above: Performed By: #### C RUDOLPH, BMP ####[address] Lymphocytes (Bld) [#/Vol] 0.6 10*3/uL Low 1.00-4.8 [facility] Comment on above: Performed By: #### C BC, BMP ####[address] Lymphocytes/100 WBC (Bld) 7.8 % Normal . [facility] Comment on above: Performed By: #### C BC, BMP ####[address] MCH (RBC) [Entitic mass] 33.0 pg Normal 27.5-35.2 [facility] Comment on above: Performed By: #### C BC, BMP ####[address] MCV (RBC) [Entitic vol] 97.3 fL Normal 83.5-101 [facility] Comment on above: Performed By: #### C RUDOLPH, BMP ####[address] Mean Corpuscular HGB Conc 33.9 g/dL Normal 32.5-35.6 [facility] Comment on above: Performed By: #### C RUDOLPH, BMP ####[address] Monocytes (Bld) [#/Vol] 0.8 10*3/uL Normal 0.0-0.8 [facility] Comment on above: Performed By: #### C RUDOLPH, BMP ####[address] Monocytes/100 WBC (Bld) 11.4 % Normal . [facility] Comment on above: Performed By: #### C RUDOLPH, BMP ####[address] Neutrophils (Bld) [#/Vol] 5.9 10*3/uL Normal 1.8-7.7 [facility] Comment on above: Performed By: #### C RUDOLPH, BMP ####[address] Neutrophils/100 WBC (Bld) 79.6 % Normal . [facility] Comment on above: Performed By: #### C RUDOLPH, BMP ####[address] NRBC% 0.1 /100{WBC} Normal 0-0.5 [facility] Comment on above: Performed By: #### C RUDOLPH, BMP ####[place] [id number] [facility] Platelet mean volume (Bld) [Entitic vol] 8.4 fL Normal 6.6-10.1 [facility] Comment on above: Performed By: #### C RUDOLPH, BMP ####[address] [place] [address] [place] Platelets (Bld) [#/Vol] 121 10*3/uL Low 150-450 [facility] Comment on above: Performed By: #### C BC, BMP ####[facility] RBC (Bld) [#/Vol] 3.64 10*6/uL Low 3.90-5.60 [facility] Comment on above: Performed By: #### C BC, BMP ####[facility] WBC (Bld) [#/Vol] 7.4 10*3/uL Normal 4.1-10.5 [facility] Comment on above: Performed By: #### C RUDOLPH, BMP ####[place] [id number] Eosinophils Auto (Bld) [#/Vo l]Ordered By: Hiral Interiano on 08-14-2022 Eosinophils (Bld) [#/Vol] 0.1 10*3/uL 0.0-0.45 [facility] Eosinophils/100 WBC Auto (Bl d)Ordered By: Hiral Interiano on 08-14-2022 Eosinophils/100 WBC (Bld) 1.0 % . [facility] Erythrocyte distribution wid th Auto (RBC) [Ratio]Ordered By: Hiral Interiano on 08-14-2022 Erythrocyte distribution width (RBC) [Ratio] 13.5 % 12.0-14.8 [facility] Glucose Poct Glucometerson 0 08-14-2022 Commemt1 Glu2: Cleaned Meter Normal [facility] Comment on above: Result Comment: PERF ORMED BY: [facility] [address] [place] [address] PATHOLOGIST [employer] SUPERVISOR DIANDRA LACY M.D. Performed By: #### P T #### [facility] [address] Glucose [Mass/Vol] 140 mg/dL Normal [facility] Comment on above: Result Comment: [place] om Glucose Reference Range is dependent on time and content of last meal. Glucose of more than 200 mg/dL in a nonstressed, ambulatory subject supports the diagnosis of Diabetes Mellitus. Performed By: #### P T #### [facility] [address] [place] [address] Glucose [Mass/Vol] 125 mg/dL Normal [facility] Comment on above: Result Comment: [place] om Glucose Reference Range is dependent on time and content of last meal. Glucose of more than 200 mg/dL in a nonstressed, ambulatory subject supports the diagnosis of Diabetes Mellitus. PERFORMED BY: [place] [address] PATHOLOGIST [employer] SUPERVISOR DIANDRA LACY M.D. Performed By: #### P T #### [facility] [address] [place] [address] Glucose [Mass/Vol] 140 mg/dL Normal [facility] Comment on above: Result Comment: [place] om Glucose Reference Range is dependent on time and content of last meal. Glucose of more than 200 mg/dL in a nonstressed, ambulatory subject supports the diagnosis of Diabetes Mellitus. PERFORMED BY: [place] [address] PATHOLOGIST [employer] SUPERVISOR DIANDRA LACY M.D. Performed By: #### G LULS ####Point of Care testing, Commemt1 Glu2: Cleaned Meter Normal [facility] Comment on above: Result Comment: PERF ORMED BY: [place] [address] PATHOLOGIST [employer] SUPERVISOR DIANDRA LACY M.D. Performed By: #### G LULS ####Point of Care testing, Glucose [Mass/Vol] 175 mg/dL Normal [facility] Comment on above: Result Comment: [place] om Glucose Reference Range is dependent on [...] Cocci 2+ Gram Negative Bacilli PERFORMED BY: [place] [address] PATHOLOGIST [employer] SUPERVISOR DIANDRA LACY M.D. Normal [facility] Comment on above: Performed By: #### B MP #### [address] Hematocrit Auto (Bld) [Volum e fraction]Ordered By: Hiral Interiano on 08-14-2022 Hematocrit (Bld) [Volume fraction] 35.4 % 38.8-50.0 [facility] Hemoglobin [Mass/volume] in BloodOrdered By: Hiral Interiano on 08-14-2022 Hemoglobin (Bld) [Mass/Vol] 12.0 g/dL 13.0-17.0 [facility] Leukocytes [#/volume] correc ike for nucleated erythrocytes in Blood by Automated counOrdered By: Hiral Interiano on 08-14-2022 WBC corrected for nucl RBC Auto (Bld) [#/Vol] 7.4 10*3/uL 4.1-10.5 [facility] Lymphocytes Auto (Bld) [#/Vo l]Ordered By: Hiral Interiano on 08-14-2022 Lymphocytes (Bld) [#/Vol] 0.6 10*3/uL 1.00-4.8 [facility] Lymphocytes/100 WBC Auto (Bl d)Ordered By: Hiral Interiano on 08-14-2022 Lymphocytes/100 WBC (Bld) 7.8 % . [facility] MCH Auto (RBC) [Entitic mass ]Ordered By: Hiral Interiano on 08-14-2022 MCH (RBC) [Entitic mass] 33.0 pg 27.5-35.2 [facility] MCHC Auto (RBC) [Mass/Vol]Or dered By: Hiral Interiano on 08-14-2022 MCHC (RBC) [Mass/Vol] 33.9 g/dL 32.5-35.6 [facility] MCV Auto (RBC) [Entitic vol] Ordered By: Hiral Interiano on 08-14-2022 MCV (RBC) [Entitic vol] 97.3 fL 83.5-101 [facility] Monocytes Auto (Bld) [#/Vol] Ordered By: Hiral Interiano on 08-14-2022 Monocytes (Bld) [#/Vol] 0.8 10*3/uL 0.0-0.8 [facility] Monocytes/100 WBC Auto (Bld) Ordered By: Hiral Interiano on 08-14-2022 Monocytes/100 WBC (Bld) 11.4 % . [facility] Neutrophils Auto (Bld) [#/Vo l]Ordered By: Hiral Interiano on 08-14-2022 Neutrophils (Bld) [#/Vol] 5.9 10*3/uL 1.8-7.7 [facility] Neutrophils/100 WBC Auto (Bl d)Ordered By: Hiral Interiano on 08-14-2022 Neutrophils/100 WBC (Bld) 79.6 % . [facility] No Panel InformationOrdered By: Hiral Interiano on 08-14-2022 Bedside Glucose Comment Glu2: cleaned meter [facility] Nucleated erythrocytes [Pres ence] in Blood by Automated countOrdered By: Hiral Interiano on 08-14-2022 Nucleated RBC Auto Ql (Bld) 0.1 /100{WBC} 0-0.5 [facility] Platelet mean volume Auto (B ld) [Entitic vol]Ordered By: Hiral Interiano on 08-14-2022 Platelet mean volume (Bld) [Entitic vol] 8.4 fL 6.6-10.1 [facility] Platelets Auto (Bld) [#/Vol] Ordered By: Hiral Interiano on 08-14-2022 Platelets (Bld) [#/Vol] 121 10*3/uL 150-450 [facility] RBC Auto (Bld) [#/Vol]Ordere d By: Hiral Interiano on 08-14-2022 RBC (Bld) [#/Vol] 3.64 10*6/uL 3.90-5.60 [facility] WBC Auto (Bld) [#/Vol]Ordere d By: Hiral Interiano on 08-14-2022 WBC (Bld) [#/Vol] 7.4 10*3/uL 4.1-10.5 [facility] Albumin Levelon 08-13-2022 Albumin [Mass/Vol] 3.0 g/dL Low 3.2-5.5 [facility] Comment on above: Result Comment: PERF ORMED BY: [place] [address] PATHOLOGIST [employer] SUPERVISOR DIANDRA LACY M.D. Performed By: #### B MP #### [address] Basic Metabolic Panelon 07-28 Anion gap [Moles/Vol] 18.4 mmol/L High 6.0-15.0 [facility] Comment on above: Order Comment: REDRA W Performed By: #### B MP #### [address] Calcium [Mass/Vol] 7.0 mg/dL Low 8.2-10.2 [facility] Comment on above: Order Comment: REDRA W Performed By: #### B MP #### [address] Chloride [Moles/Vol] 97 mmol/L Normal 95-114 [facility] Comment on above: Order Comment: REDRA W Performed By: #### B MP #### [facility] [address] [place] [address] CO2 [Moles/Vol] 24.5 mmol/L Normal 22.0-30.0 [facility] Comment on above: Order Comment: REDRA W Performed By: #### B MP #### [facility] [address] [place] [address] [place] Creatinine [Mass/Vol] 10.74 mg/dL Significan t change up 0.64-1.27 [facility] Comment on above: Order Comment: REDRA W Performed By: #### B MP #### [facility] [address] [place] [address] [place] Creatinine Clr Calc Pharmacy 7.06 [facility] Comment on above: Order Comment: REDRA W Result Comment: PERF ORMED BY: [place] [address] PATHOLOGIST [employer] SUPERVISOR DAINDRA LACY M.D. Performed By: #### B MP #### [place] [address] [place] Estimated GFR ( Yana 6 [facility] Comment on above: Order Comment: REDRA W Result Comment: GFR estimated reference range: According to KDOQI guidelines, <60 ml/min/1.73m2 is sufficient to diagnose a patient with chronic kidney disease. Performed By: #### B MP #### [place] [address] [place] Estimated GFR (Non- Am 5 [facility] Comment on above: Order Comment: REDRA W Performed By: #### B MP #### [address] Glucose [Mass/Vol] 85 mg/dL Normal 70-100 [facility] Comment on above: Order Comment: REDRA W Result Comment: [place] om Glucose Reference Range is dependent on time and content of last meal. Glucose of more than 200 mg/dL in a nonstressed, ambulatory subject supports the diagnosis of Diabetes Mellitus. ADA recommended reference range Performed By: #### B MP #### [place] [address] [place] Potassium [Moles/Vol] 4.9 mmol/L Normal 3.5-5.1 [facility] Comment on above: Order Comment: REDRA W Performed By: #### B MP #### [facility] [address] [place], [place] [id number] [place] Sodium [Moles/Vol] 135 mmol/L Low 136-146 [facility] Comment on above: Order Comment: REDRA W Performed By: #### B MP #### [place] [address] [place] Urea nitrogen [Mass/Vol] 72 mg/dL Significant change up 03-19 [facility] Comment on above: Order Comment: REDRA W Performed By: #### B MP #### [address] Body fluid albumin measureme nt (mass/volume)Ordered By: Alicia Perea on 08-13-2022 Albumin (Body fld) [Mass/Vol] 3.0 g/dL 3.2-5.5 [facility] Complete Blood Count Auto Di ffon 08-13-2022 Basophils (Bld) [#/Vol] 0.0 10*3/uL Normal 0.0-0.2 [facility] Comment on above: Result Comment: PERF ORMED BY: [place] [address] PATHOLOGIST [employer] SUPERVISOR DIANDRA LACY M.D. Performed By: #### C BC #### [address] Basophils/100 WBC (Bld) 0.5 % Normal . [facility] Comment on above: Performed By: #### C BC #### [address] Eosinophils (Bld) [#/Vol] 0.1 10*3/uL Normal 0.0-0.45 [facility] Comment on above: Performed By: #### C BC #### [address] Eosinophils/100 WBC (Bld) 0.9 % Normal . [facility] Comment on above: Performed By: #### C BC #### [address] Erythrocyte distribution width (RBC) [Ratio] 13.7 % Normal 12.0-14.8 [facility] Comment on above: Performed By: #### C BC #### [address] Hematocrit (Bld) [Volume fraction] 34.2 % Low 38.8-50.0 [facility] Comment on above: Performed By: #### C BC #### [address] Hemoglobin (Bld) [Mass/Vol] 11.6 g/dL Low 13.0-17.0 [facility] Comment on above: Performed By: #### C BC #### [address] Lymphocytes (Bld) [#/Vol] 0.9 10*3/uL Low 1.00-4.8 [facility] Comment on above: Performed By: #### C BC #### [address] Lymphocytes/100 WBC (Bld) 9.6 % Normal . [facility] Comment on above: Performed By: #### C BC #### [address] MCH (RBC) [Entitic mass] 32.9 pg Normal 27.5-35.2 [facility] Comment on above: Performed By: #### C BC #### [address] MCV (RBC) [Entitic vol] 96.5 fL Normal 83.5-101 [facility] Comment on above: Performed By: #### C BC #### [address] Mean Corpuscular HGB Conc 34.1 g/dL Normal 32.5-35.6 [facility] Comment on above: Performed By: #### C BC #### [address] Monocytes (Bld) [#/Vol] 1.0 10*3/uL High 0.0-0.8 [facility] Comment on above: Performed By: #### C BC #### [address] Monocytes/100 WBC (Bld) 9.8 % Normal . [facility] Comment on above: Performed By: #### C BC #### [address] Neutrophils (Bld) [#/Vol] 7.8 10*3/uL High 1.8-7.7 [facility] Comment on above: Performed By: #### C BC #### [facility] [address] [place] [address] [place] Neutrophils/100 WBC (Bld) 79.2 % Normal . [facility] Comment on above: Performed By: #### C BC #### [facility] [address] NRBC% 0.1 /100{WBC} Normal 0-0.5 [facility] Comment on above: Performed By: #### C BC #### [facility] [address] Platelet mean volume (Bld) [Entitic vol] 8.7 fL Normal 6.6-10.1 [facility] Comment on above: Performed By: #### C BC #### [facility] [address] [place] [address] [place] Platelets (Bld) [#/Vol] 129 10*3/uL Low 150-450 [facility] Comment on above: Performed By: #### C BC #### [facility] [address] [place] [address] [place] RBC (Bld) [#/Vol] 3.54 10*6/uL Low 3.90-5.60 [facility] Comment on above: Performed By: #### C BC #### [facility] [address] [place] [address] [place] WBC (Bld) [#/Vol] 9.9 10*3/uL Normal 4.1-10.5 [facility] Comment on above: Performed By: #### C BC #### [facility] [address] [place] [address] [place] urethrocystogram retroon 08-13-2022 [place] urethrocystogram retro [facility] [place] [address] [place] [address] Fluoroscopy Report Signed Patient: Victorino Smyth MR#: [id number] : 1940 Acct:[id number] Age/Sex: 82 / M ADM Date: 08/11/22 Loc: 4N Room: 8D2668-8 Type: ADM IN Attending Dr: Hiral Interiano [...] Perez Jr., D.OManohar08/13/2022 2:25 PM Dictation Location: [place] [address] Transcribed By: [facility] 08/13/22 142 Dictated By: Ifeanyi Perez Jr, DO 08/13/22 142 Signed By: 08/13/22 142 [facility] Glucose Poct Glucometerson 0 08-13-2022 Commemt1 Glu2: Cleaned Meter [facility] Comment on above: Result Comment: PERF ORMED BY: [place] [address] PATHOLOGIST [employer] SUPERVISOR DIANDRA LACY M.D. Performed By: #### B MP #### [facility] [address] [place] [address] Glucose [Mass/Vol] 91 mg/dL [facility] Comment on above: Result Comment: [facility] Glucose Reference Range is dependent on time and content of last meal. Glucose of more than 200 mg/dL in a nonstressed, ambulatory subject supports the diagnosis of Diabetes Mellitus. Performed By: #### B MP #### [facility] [address] [place] [address] Commemt1 Glu2: Cleaned Meter [facility] Comment on above: Result Comment: PERF ORMED BY: [place] [address] PATHOLOGIST [employer] SUPERVISOR DIANDRA LACY M.D. Performed By: #### G LULS ####Point of Care testing, Glucose [Mass/Vol] 94 mg/dL Normal [facility] Comment on above: Result Comment: [facility] Glucose Reference Range is dependent on time and content of last meal. Glucose of more than 200 mg/dL in a nonstressed, ambulatory subject supports the diagnosis of Diabetes Mellitus. Performed By: #### G JOHANNE ####Point of Care testing, Operative Reporton Operative Report [id number] Normal [facility] A1C with Estimated Average G marianna 08-12-2022 Glucose [Mass/Vol] 212 mg/dL Normal [facility] Comment on above: Result Comment: PERF ORMED BY: [facility] [address] [place] [address] PATHOLOGIST [employer] SUPERVISOR DIANDRA LACY M.D. Performed By: #### B MP #### [facility] [address] HbA1c (Bld) [Mass fraction] 9.0 % High 4.3-5.6 [facility] Comment on above: Result Comment: Incr eased risk for diabetes: 5.7 - 6.4 diabetes: >6.4 glycemic control for adults with diabetes: <7.0 Performed By: #### B MP #### [facility] [address] Basic Metabolic Panelon 07-28 Anion gap [Moles/Vol] 20.6 mmol/L High 6.0-15.0 [facility] Comment on above: Performed By: #### B MP, CBC ####[facility] Calcium [Mass/Vol] 7.1 mg/dL Low 8.2-10.2 [facility] Comment on above: Performed By: #### B MP, CBC ####[facility] [place] [id number] [place] Chloride [Moles/Vol] 104 mmol/L Normal 95-114 [facility] Comment on above: Performed By: #### B MP, CBC ####[facility] [place] [address] [place] CO2 [Moles/Vol] 20.2 mmol/L Low 22.0-30.0 [facility] Comment on above: Performed By: #### B MP, CBC ####[address] [place] [address] [facility] Creatinine [Mass/Vol] 15.50 mg/dL Significan t change up 0.64-1.27 [facility] Comment on above: Performed By: #### B MP, CBC ####[address] [place] [address] [place] Creatinine Clr Calc Pharmacy 4.90 [facility] Comment on above: Result Comment: PERF ORMED BY: [facility] [address] [facility] [place] [address] PATHOLOGIST [employer]PER[employer] DIANDRA LACY M.D. Performed By: #### B MP, CBC ####[address] [address] [facility] Estimated GFR ( Yana 4 [facility] Comment on above: Result Comment: GFR estimated reference range: According to KDOQI guidelines, <60 ml/min/1.73m2 is sufficient to diagnose a patient with chronic kidney disease. Performed By: #### B MP, CBC ####[address] [address] [facility] Estimated GFR (Non- Am 3 [facility] Comment on above: Performed By: #### B MP, CBC ####[facility] [place] [id number] [facility] Glucose [Mass/Vol] 100 mg/dL Significant change down 70-100 [facility] Comment on above: Result Comment: [place] Glucose Reference Range is dependent on time and content of last meal. Glucose of more than 200 mg/dL in a nonstressed, ambulatory subject supports the diagnosis of Diabetes Mellitus. ADA recommended reference range Performed By: #### B MP, CBC ####[address] [address] [place] Potassium [Moles/Vol] 4.8 mmol/L Significan t change down 3.5-5.1 [facility] Comment on above: Performed By: #### B MP, CBC ####[address] Sodium [Moles/Vol] 140 mmol/L Significant change down 136-146 [facility] Comment on above: Performed By: #### B MP, CBC ####[address] Urea nitrogen [Mass/Vol] 133 mg/dL Significant change up - [facility] Comment on above: Performed By: #### B MP, CBC ####[address] Complete Blood Count Auto Di ffon 08-12-2022 Basophils (Bld) [#/Vol] 0.0 10*3/uL Normal 0.0-0.2 [facility] Comment on above: Result Comment: PERF ORMED BY: [facility] [address] [place] [address] PATHOLOGIST [employer] SUPERVISOR DIANDRA LACY M.D. Performed By: #### B MP, CBC ####[address] Basophils/100 WBC (Bld) 0.2 % Normal . [facility] Comment on above: Performed By: #### B MP, CBC ####[address] Eosinophils (Bld) [#/Vol] 0.0 10*3/uL Normal 0.0-0.45 [facility] Comment on above: Performed By: #### B MP, CBC ####[address] Eosinophils/100 WBC (Bld) 0.0 % Normal . [facility] Comment on above: Performed By: #### B MP, CBC ####[address] Erythrocyte distribution width (RBC) [Ratio] 13.6 % Normal 12.0-14.8 [facility] Comment on above: Performed By: #### B MP, CBC ####[address] Hematocrit (Bld) [Volume fraction] 33.6 % Low 38.8-50.0 [facility] Comment on above: Performed By: #### B MP, CBC ####[address] Hemoglobin (Bld) [Mass/Vol] 11.5 g/dL Low 13.0-17.0 [facility] Comment on above: Performed By: #### B MP, CBC ####[address] Lymphocytes (Bld) [#/Vol] 0.6 10*3/uL Low 1.00-4.8 [facility] Comment on above: Performed By: #### B MP, CBC ####[address] Lymphocytes/100 WBC (Bld) 4.4 % Normal . [facility] Comment on above: Performed By: #### B MP, CBC ####[address] MCH (RBC) [Entitic mass] 32.9 pg Normal 27.5-35.2 [facility] Comment on above: Performed By: #### B MP, CBC ####[address] MCV (RBC) [Entitic vol] 95.9 fL Normal 83.5-101 [facility] Comment on above: Performed By: #### B MP, CBC ####[address] Mean Corpuscular HGB Conc 34.3 g/dL Normal 32.5-35.6 [facility] Comment on above: Performed By: #### B MP, CBC ####[address] Monocytes (Bld) [#/Vol] 1.0 10*3/uL High 0.0-0.8 [facility] Comment on above: Performed By: #### B MP, CBC ####[address] Monocytes/100 WBC (Bld) 7.4 % Normal . [facility] Comment on above: Performed By: #### B MP, CBC ####[address] Neutrophils (Bld) [#/Vol] 11.8 10*3/uL High 1.8-7.7 [facility] Comment on above: Performed By: #### B MP, CBC ####[address] Neutrophils/100 WBC (Bld) 88.0 % Normal . [facility] Comment on above: Performed By: #### B MP, CBC ####[address] NRBC% 0.0 /100{WBC} Normal 0-0.5 [facility] Comment on above: Performed By: #### B MP, CBC ####[address] Platelet mean volume (Bld) [Entitic vol] 8.3 fL Normal 6.6-10.1 [facility] Comment on above: Performed By: #### B MP, CBC ####[address] Platelets (Bld) [#/Vol] 162 10*3/uL Normal 150-450 [facility] Comment on above: Performed By: #### B MP, CBC ####[address] RBC (Bld) [#/Vol] 3.51 10*6/uL Low 3.90-5.60 [facility] Comment on above: Performed By: #### B MP, CBC ####[address] WBC (Bld) [#/Vol] 13.4 10*3/uL High 4.1-10.5 [facility] Comment on above: Performed By: #### B MP, CBC ####[facility] [id number] [facility] Consultation Noteon 08-12-19 Consultation Note [id number] Normal [facility] Glucose Poct Glucometerson 0 08-12-2022 Glucose [Mass/Vol] 114 mg/dL Normal [facility] Comment on above: Result Comment: [facility] Glucose Reference Range is dependent on time and content of last meal. Glucose of more than 200 mg/dL in a nonstressed, ambulatory subject supports the diagnosis of Diabetes Mellitus. PERFORMED BY: [place] [address] PATHOLOGIST [employer] SUPERVISOR DIANDRA LACY M.D. Performed By: #### G JOHANNE #### Point of Care testing , Glucose [Mass/Vol] 111 mg/dL Normal [facility] Comment on above: Result Comment: [facility] Glucose Reference Range is dependent on time and content of last meal. Glucose of more than 200 mg/dL in a nonstressed, ambulatory subject supports the diagnosis of Diabetes Mellitus. PERFORMED BY: [facility] [address] [place] [address] PATHOLOGIST [employer] SUPERVISOR DIANDRA LACY M.D. Performed By: #### G LULS #### Point of Care testing , Glucose [Mass/Vol] 96 mg/dL Normal [facility] Comment on above: Result Comment: [facility] Glucose Reference Range is dependent on time and content of last meal. Glucose of more than 200 mg/dL in a nonstressed, ambulatory subject supports the diagnosis of Diabetes Mellitus. PERFORMED BY: [place] [address] PATHOLOGIST [employer] SUPERVISOR DIANDRA LACY M.D. Performed By: #### B MP #### [facility] [address] Glucose [Mass/Vol] 91 mg/dL Normal [facility] Comment on above: Result Comment: [place] om Glucose Reference Range is dependent on time and content of last meal. Glucose of more than 200 mg/dL in a nonstressed, ambulatory subject supports the diagnosis of Diabetes Mellitus. PERFORMED BY: [place] [address] PATHOLOGIST [employer] SUPERVISOR DIANDRA LACY M.D. Performed By: #### B MP #### [facility] [address] [place] [address] Glucose [Mass/Vol] 93 mg/dL Normal [facility] Comment on above: Result Comment: [place] Glucose Reference Range is dependent on time and content of last meal. Glucose of more than 200 mg/dL in a nonstressed, ambulatory subject supports the diagnosis of Diabetes Mellitus. PERFORMED BY: [place] [address] PATHOLOGIST [employer] SUPERVISOR DIANDRA LACY M.D. Performed By: #### P T #### [facility] [address] [place] [address] Commemt1 Glu2: Cleaned Meter Normal [facility] Comment on above: Result Comment: PERF ORMED BY: [place] [address] PATHOLOGIST [employer] SUPERVISOR DIANDRA LACY M.D. Performed By: #### G LULS #### Point of Care testing , Glucose [Mass/Vol] 87 mg/dL Normal [facility] Comment on above: Result Comment: [place] Glucose Reference Range is dependent on time [...] from glycated hemoglobin (Bld) [Mass/Vol] 212 mg/dL [facility] Hemoglobin A1c percentageOrd ered By: Hiral Interiano on 08-12-2022 HbA1c (Bld) [Mass fraction] 9.0 % 4.3-5.6 [facility] Comment on above: Increased risk for d iabetes: 5.7 - 6.4diabetes: >6.4glycemic control for adults with diabetes: <7.0 Anisocytosis LM Ql (Bld)Orde red By: Hiral Interiano on 08-11-2022 Anisocytosis Ql (Bld) Slight [facility] Band form neutrophils/100 WB C Manual cnt (Bld)Ordered By: Hiral Interiano on 08-11-2022 Band form neutrophils/100 WBC (Bld) 1 % 0-5 [facility] Basic Metabolic Panelon 07-28 Anion gap [Moles/Vol] 30.1 mmol/L High 6.0-15.0 [facility] Comment on above: Performed By: #### B MP #### [facility] [address] Calcium [Mass/Vol] 7.2 mg/dL Low 8.2-10.2 [facility] Comment on above: Performed By: #### B MP #### [facility] [address] Chloride [Moles/Vol] 99 mmol/L Normal 95-114 [facility] Comment on above: Performed By: #### B MP #### [facility] [address] [place] [id number] [facility] CO2 [Moles/Vol] 9.3 mmol/L Low 22.0-30.0 [facility] Comment on above: Performed By: #### B MP #### [facility] [address] [place] [address] [place] Creatinine Clr Calc Pharmacy 4.24 Normal [facility] Comment on above: Result Comment: PERF ORMED BY: [place] [address] PATHOLOGIST [employer] SUPERVISOR DIANDRA LACY M.D. Performed By: #### B MP #### [facility] [address] [place] [address] [place] Estimated GFR ( Yana 3 [facility] Comment on above: Result Comment: GFR estimated reference range: According to KDOQI guidelines, <60 ml/min/1.73m2 is sufficient to diagnose a patient with chronic kidney disease. Performed By: #### B MP #### [facility] [address] Estimated GFR (Non- Am 3 [facility] Comment on above: Performed By: #### B MP #### [facility] [address] Glucose [Mass/Vol] 507 mg/dL Off scale high 70-100 [facility] Comment on above: Result Comment: Resu lts called at 1409 on 08/11/22 Random Glucose Reference Range is dependent on time and content of last meal. Glucose of more than 200 mg/dL in a nonstressed, ambulatory subject supports the diagnosis of Diabetes Mellitus. ADA recommended reference range Performed By: #### B MP #### [address] Potassium [Moles/Vol] 7.4 mmol/L Off scale high 3.5-5.1 [facility] Comment on above: Result Comment: Resu lts called at 1409 on 08/11/22 Performed By: #### B MP #### [address] Sodium [Moles/Vol] 131 mmol/L Low 136-146 [facility] Comment on above: Performed By: #### B MP #### [facility] [address] [place] [address] [place] Urea nitrogen [Mass/Vol] 163 mg/dL High 03-19 [facility] Comment on above: Performed By: #### B MP #### [place] [address] [place] Beta Hydroxybuterateon 08-11 Beta Hydroxybuterate 2.40 mmol/L High 0.05-0.27 [facility] Comment on above: Result Comment: PERF ORMED BY: [facility] [address] [place] [address] PATHOLOGIST [employer] SUPERVISOR DIANDRA LACY M.D. Performed By: #### B MP #### [facility] [address] Beta-hydroxybutyric acid adina surementOrdered By: Alicia Perea on 08-11-2022 Beta hydroxybutyrate [Mass/Vol] 2.40 mmol/L 0.05-0.27 [facility] Amie cells [Presence] in Blo od by Light microscopyOrdered By: Hiral Interiano on 08-11-2022 Amie cells LM Ql (Bld) Slight Fi [facility] CARDIAC GUIDO 3-6on 3 CK [Catalytic activity/Vol] 162 U/L Normal 39-308 [facility] Comment on above: Performed By: #### T SH, LIPID, T4, FT3, CMP #### [facility] [address] [address] [address] Alicia Patel CK.MB [Mass/Vol] 5.52 ng/mL Critically high <=3.60 [facility] Comment on above: Performed By: #### T SH, LIPID, T4, FT3, CMP #### [facility] [address] [address] [address] Alicia Patel HSTROP 19.7 pg/mL Normal 4.0-76.1 [facility] Comment on above: Result Comment: CUT- OFF POINTS HAVE BEEN ESTABLISHED BASED ON THE FOURTH UNIVERSAL DEFINITIONS OF MYOCARDIAL INFARCTION. THE UPPER REFERENCE LIMIT (URL) OF TROPONIN, DEFINED THE 99TH PERCENTILE OF cTnI DISTRIBUTION IN A REFERENCE POPULATION, HAS BEEN CONFIRMED THE DECISION THRESHOLD FOR [place] DIAGNOSIS. Performed By: #### T SH, LIPID, T4, FT3, CMP #### [facility] [address] [address] [address] Alicia Patel CK [Catalytic activity/Vol] 150 U/L Normal 39-[address] [facility] Comment on above: Performed By: #### T SH, LIPID, T4, FT3, CMP #### [facility] [address] [address] [address] Alicia Patel CK.MB [Mass/Vol] 4.99 ng/mL Critically high <=3.[address] [facility] Comment on above: Performed By: #### T SH, LIPID, T4, FT3, CMP #### [facility] [address] [address] [address] Alicia Patel HSTROP 16.9 pg/mL Normal 4.0-76.[address] [facility] Comment on above: Result Comment: CUT- OFF POINTS HAVE BEEN ESTABLISHED BASED ON THE FOURTH UNIVERSAL DEFINITIONS OF MYOCARDIAL INFARCTION. THE UPPER REFERENCE LIMIT (URL) OF TROPONIN, DEFINED THE 99TH PERCENTILE OF cTnI DISTRIBUTION IN A REFERENCE POPULATION, HAS BEEN CONFIRMED THE DECISION THRESHOLD FOR [place] DIAGNOSIS. Performed By: #### T SH, LIPID, T4, FT3, CMP #### [facility] [address] [place] [address] Dr. Alicia Patel CARDIAC GUIDO ADMITon 023 CK [Catalytic activity/Vol] 128 U/L Normal 39-308 [facility] Comment on above: Performed By: #### T SH, LIPID, T4, FT3, CMP #### [facility] [address] [address] [address] Alicia Patel CK.MB [Mass/Vol] 4.95 ng/mL Critically high <=3.[address] [facility] Comment on above: Performed By: #### T SH, LIPID, T4, FT3, CMP #### [facility] [address] [place] [address] Dr. Alicai Patel HSTROP 18.0 pg/mL Normal 4.0-76.[address] [facility] Comment on above: Result Comment: CUT- OFF POINTS HAVE BEEN ESTABLISHED BASED ON THE FOURTH UNIVERSAL DEFINITIONS OF MYOCARDIAL INFARCTION. THE UPPER REFERENCE LIMIT (URL) OF TROPONIN, DEFINED THE 99TH PERCENTILE OF cTnI DISTRIBUTION IN A REFERENCE POPULATION, HAS BEEN CONFIRMED THE DECISION THRESHOLD FOR [place] DIAGNOSIS. Performed By: #### T SH, LIPID, T4, FT3, CMP #### [facility] [address] [place] [address] Dr. Alicia Patel LIZZY 188 ng/mL Critically high 16-[address] [facility] Comment on above: Performed By: #### T SH, LIPID, T4, FT3, CMP #### [facility] [address] [place] [address] Dr. Alicia Patel CBC AUTO DIFFon 08-11-2022 BASO # 0.0 103/ul Normal 0.0-0.1 [facility] Comment on above: Performed By: #### T SH, LIPID, T4, FT3, CMP #### [facility] [address] [place] [address] Dr. Alicia Patel Basophils/100 WBC (Bld) 0.3 % Normal 0.2-2.[address] [facility] Comment on above: Performed By: #### T SH, LIPID, T4, FT3, CMP #### [facility] [address] [place] [address] Dr. Alicia Patel EO # 0.2 103/ul Normal 0.0-0.[address] [facility] Comment on above: Performed By: #### T SH, LIPID, T4, FT3, CMP #### [facility] [address] [place] [address] Dr. Alicia Patel Eosinophils/100 WBC (Bld) 1.8 % Normal 0.9-7.[address] [facility] Comment on above: Performed By: #### T SH, LIPID, T4, FT3, CMP #### [facility] [address] [place] [address] Dr. Alicia Patel Erythrocyte distribution width (RBC) [Ratio] 13.2 % Normal 11.0-15.[address] [facility] Comment on above: Performed By: #### T SH, LIPID, T4, FT3, CMP #### [facility] [address] [place] [address] Dr. Alicia Patel Hematocrit (Bld) [Volume fraction] 36.0 % Critically low 42.0-54.[address] [facility] Comment on above: Performed By: #### T SH, LIPID, T4, FT3, CMP #### [facility] [address] [place] [address] Dr. Alicia Patel Hemoglobin (Bld) [Mass/Vol] 12.0 g/dL Critically low 14.0-18.[address] [facility] Comment on above: Performed By: #### T SH, LIPID, T4, FT3, CMP #### [facility] [address] [place] [address] Dr. Alicia Patel IG # 0.34 10e3/ul Critically high 0.00-0.03 [facility] Comment on above: Performed By: #### T SH, LIPID, T4, FT3, CMP #### [facility] [address] [place] [address] Dr. Alicia Patel IG % 3.8 % Critically high 0.0-0.5 [facility] Comment on above: Performed By: #### T SH, LIPID, T4, FT3, CMP #### [facility] [address] [place] [address] Dr. Alicia Patel LYMPH # 0.5 103/ul Critically low 1.2-3.8 [facility] Comment on above: Performed By: #### T SH, LIPID, T4, FT3, CMP #### [facility] [address] [place] [address] Dr. Alicia Patel Lymphocytes/100 WBC (Bld) 5.9 % Critically low 20.5-60.0 [facility] Comment on above: Performed By: #### T SH, LIPID, T4, FT3, CMP #### [facility] [address] [place] [address] Dr. Alicia Patel MANUAL DIFF REQ NO Normal [facility] Comment on above: Performed By: #### T SH, LIPID, T4, FT3, CMP #### [facility] [address] [place] [address] Dr. Alicia Patel MCH (RBC) [Entitic mass] 32.3 pg Normal 25.9-34.[address] [facility] Comment on above: Performed By: #### T SH, LIPID, T4, FT3, CMP #### [facility] [address] [place] [address] Dr. Alicia Patel MCHC (RBC) [Mass/Vol] 33.3 g/dL Normal 29.9-35.2 [facility] Comment on above: Performed By: #### T SH, LIPID, T4, FT3, CMP #### [facility] [address] [place] [address] Dr. Alicia Patel MCV (RBC) [Entitic vol] 97.0 fL Critically high 80.0-94.0 [facility] Comment on above: Performed By: #### T SH, LIPID, T4, FT3, CMP #### [facility] [address] [place] [address] Dr. Alicia Patel MONO # 0.5 103/ul Normal 0.3-0.[address] [facility] Comment on above: Performed By: #### T SH, LIPID, T4, FT3, CMP #### [facility] [address] [place] [address] Dr. Alicia Patel Monocytes/100 WBC (Bld) 5.5 % Normal 1.7-12.0 [facility] Comment on above: Performed By: #### T SH, LIPID, T4, FT3, CMP #### [facility] [address] [place] [address] Dr. Alicia Patel NEUT # 7.5 103/ul Critically high 1.4-6.[address] [facility] Comment on above: Performed By: #### T SH, LIPID, T4, FT3, CMP #### [facility] [address] [place] [address] Dr. Alicia Patel Neutrophils/100 WBC (Bld) 82.7 % Critically high 43.0-75.[address] [facility] Comment on above: Performed By: #### T SH, LIPID, T4, FT3, CMP #### [facility] [address] [place] [address] Dr. Alicia Patel Platelet mean volume (Bld) [Entitic vol] 10.2 fL Normal 9.5-13.[address] [facility] Comment on above: Performed By: #### T SH, LIPID, T4, FT3, CMP #### [facility] [address] [place] [address] Dr. Alicia Patel PLT 191 103/ul Normal 150-[address] [facility] Comment on above: Performed By: #### T SH, LIPID, T4, FT3, CMP #### [facility] [address] [place], [place] [address] Dr. Alicia Patel RBC 3.71 106/ul Critically low 4.70-6.[address] [facility] Comment on above: Performed By: #### T SH, LIPID, T4, FT3, CMP #### [facility] [address] [place], [place] [address] Dr. Alicia Patel WBC 9.0 103/ul Normal 4.0-11.[address] [facility] Comment on above: Performed By: #### T SH, LIPID, T4, FT3, CMP #### [facility] [address] [place], [place] [address] ABD/PELVIS WO CONon [...] Date: 2022-08-11 08:[address] [facility] Covid-19 PCR (CVDTBH)on 07-28 SARS-CoV-2 (COVID-19) RNA SAVANNAH+probe Ql (Unsp spec) Not detected Normal NOT DETECTED [facility] Comment on above: Result Comment: [...] for this test is supported by the [employer] of Health and Human Service's declaration that [...] LIPID, T4, FT3, CMP #### [facility] [address] [place] [address] [address] Alicia Patel Diff and CBCon 08-11-2022 Anisocytosis Ql (Bld) Slight Normal [facility] Comment on above: Performed By: #### P T #### [address] Band form neutrophils/100 WBC (Bld) 1 % Normal 0-5 [facility] Comment on above: Performed By: #### P T #### [address] Crenated RBC Slight Normal [facility] Comment on above: Performed By: #### P T #### [address] Erythrocyte distribution width (RBC) [Ratio] 13.8 % Normal 12.0-14.8 [facility] Comment on above: Performed By: #### P T #### [address] Hematocrit (Bld) [Volume fraction] 38.1 % Low 38.8-50.0 [facility] Comment on above: Performed By: #### P T #### [address] Hemoglobin (Bld) [Mass/Vol] 12.5 g/dL Low 13.0-17.0 [facility] Comment on above: Performed By: #### P T #### [address] Lymphocytes/100 WBC (Bld) 5 % Low 18-42 [facility] Comment on above: Performed By: #### P T #### [address] MCH (RBC) [Entitic mass] 32.5 pg Normal 27.5-35.2 [facility] Comment on above: Performed By: #### P T #### [address] MCV (RBC) [Entitic vol] 99.0 fL Normal 83.5-101 [facility] Comment on above: Performed By: #### P T #### [address] Mean Corpuscular HGB Conc 32.8 g/dL Normal 32.5-35.6 [facility] Comment on above: Performed By: #### P T #### [address] Microcytosis Slight Normal [facility] Comment on above: Performed By: #### P T #### [address] Monocytes/100 WBC (Bld) 1 % Low 2-11 [facility] Comment on above: Performed By: #### P T #### [address] Platelet Estimate Normal Normal Normal [facility] Comment on above: Performed By: #### P T #### [address] Platelet mean volume (Bld) [Entitic vol] 8.8 fL Normal 6.6-10.1 [facility] Comment on above: Performed By: #### P T #### [address] Platelet Morphology Normal Normal Normal [facility] Comment on above: Result Comment: PERF ORMED BY: [place] [address] PATHOLOGIST [employer] SUPERVISOR DIANDRA LACY M.D. Performed By: #### P T #### [address] Platelets (Bld) [#/Vol] 203 10*3/uL Normal 150-450 [facility] Comment on above: Performed By: #### P T #### [address] Poikilocytosis Slight Normal [facility] Comment on above: Performed By: #### P T #### [address] RBC (Bld) [#/Vol] 3.85 10*6/uL Low 3.90-5.60 [facility] Comment on above: Performed By: #### P T #### [address] Segmented neutrophils/100 WBC (Bld) 94 % High 50-70 [facility] Comment on above: Performed By: #### P T #### [address] WBC (Bld) [#/Vol] 9.1 10*3/uL Normal 4.1-10.5 [facility] Comment on above: Performed By: #### P T #### [address] ECG 12 lead ECGon 08-11-2022 ECG 12 lead ECG [facility] [place] [address] [place] [address] Electrocardiograph Report Signed Patient: Victorino Smyth MR#: [id number] : 1940 Acct:[id number] Age/Sex: 82 / M ADM Date: 08/11/22 Loc: 4N Room: 8T2185-8 Type: ADM IN Attending Dr: Hiral Interiano [...] By Yogesh Cisneros DO 08/13 1820 Normal [facility] ECG 12 lead ECG [facility] [place] [address] Electrocardiograph Report Signed Patient: Victorino Smyth MR#: [id number] : 1940 Acct:[id number] Age/Sex: 82 / M ADM Date: 08/11/22 Loc: Room: 3G6262-3 Type: ADM IN Attending Dr: Hiral Interiano [...] When compared with ECG of 28-JUN-2019 20:47, CA interval has increased Confirmed by YOGESH CISNEROS DO ([id number]) on 08/11/2022 6:42:37 PM Referred By: Electronically Signed By:YOGESH CISNEROS DO Transcribed By: MUS Signed By Yogesh Cisneros DO 08/11 1842 Normal [facility] ER URINE PROFILEon 3 Bilirubin Ql (U) Negative Normal NEGATIVE [facility] Comment on above: Performed By: #### T SH, LIPID, T4, FT3, CMP #### [facility] [address] [address] [address] Alicia Patel Clarity (U) CLEAR Normal CLEAR [facility] Comment on above: Performed By: #### T SH, LIPID, T4, FT3, CMP #### [facility] [address] [address] [address] Alicia Patel Color (U) LT. YELLOW Normal YELLOW [facility] Comment on above: Performed By: #### T SH, LIPID, T4, FT3, CMP #### [facility] [address] [place] [address] Dr. Alicia Patel ERUROLAND A micrscopic examina tion will be performed if indicated. Normal [facility] Comment on above: Performed By: #### T SH, LIPID, T4, FT3, CMP #### [facility] [address] [address] [address] Alicia Patel Glucose Ql (U) Negative Normal NEGATIVE [facility] Comment on above: Performed By: #### T SH, LIPID, T4, FT3, CMP #### [facility] [address] [address] [address] Alicia Patel Hemoglobin Ql (U) SMALL Abnormal NEGATIVE [facility] Comment on above: Performed By: #### T SH, LIPID, T4, FT3, CMP #### [facility] [address] [address] [address] Alicia Patel Ketones Ql (U) Negative Normal NEGATIVE [facility] Comment on above: Performed By: #### T SH, LIPID, T4, FT3, CMP #### [facility] [address] [address] [address] Alicia Patel LEUKOCYTES Negative Normal NEGATIVE [facility] Comment on above: Performed By: #### T SH, LIPID, T4, FT3, CMP #### [facility] [address] [address] [address] Alicia Patel Nitrite Ql (U) Negative Normal NEGATIVE [facility] Comment on above: Performed By: #### T SH, LIPID, T4, FT3, CMP #### [facility] [address] [address] [address] Alicia Patel pH (U) 6.0 [pH] Normal 5-9 [facility] Comment on above: Performed By: #### T SH, LIPID, T4, FT3, CMP #### [facility] [address] [place] [address] Dr. Alicia Patel Protein (U) [Mass/Vol] 100 mg/dL Abnormal NEGAT ОЛЕГ/ TRACE [facility] Comment on above: Performed By: #### T SH, LIPID, T4, FT3, CMP #### [facility] [address] [place] [address] Dr. Alicia Patel SPEC GRAVITY 1.015 Normal 1.005-<=1. 025 [facility] Comment on above: Performed By: #### T SH, LIPID, T4, FT3, CMP #### [facility] [address] [place] [address] Dr. Alicia Patel UR MICRO IND INDICATED Normal [facility] Comment on above: Performed By: #### T SH, LIPID, T4, FT3, CMP #### [facility] [address] [place] [address] Dr. Alicia Patel Urobilinogen Qn (U) 0.2 {Wil'U}/dL Normal 0.2 - 1. 0 [facility] Comment on above: Performed By: #### T SH, LIPID, T4, FT3, CMP #### [facility] [address] [place] [address] Dr. Alicia Patel Glucose Poct Glucometerson 0 08-11-2022 Glucose [Mass/Vol] 282 mg/dL Normal [facility] Comment on above: Result Comment: [place] Glucose Reference Range is dependent on time and content of last meal. Glucose of more than 200 mg/dL in a nonstressed, ambulatory subject supports the diagnosis of Diabetes Mellitus. PERFORMED BY: [address] [place] [address] PATHOLOGIST [employer] SUPERVISOR DIANDRA LACY M.D. Performed By: #### P T #### [address] Commemt1 Glu2: Cleaned Meter [facility] Comment on above: Result Comment: PERF ORMED BY: [address] [place] [address] PATHOLOGIST [employer] SUPERVISOR DIANDRA LACY M.D. Performed By: #### G LULS ####Point of Care testing, Glucose [Mass/Vol] 253 mg/dL Normal [facility] Comment on above: Result Comment: [place] om Glucose Reference Range is dependent on time and content of last meal. Glucose of more than 200 mg/dL in a nonstressed, ambulatory subject supports the diagnosis of Diabetes Mellitus. Performed By: #### G LULS ####Point of Care testing, Commemt1 Glu2: Cleaned Meter [facility] Comment on above: Result Comment: PERF ORMED BY: [place] [address] PATHOLOGIST [employer] SUPERVISOR DIANDRA LACY M.D. Performed By: #### P T #### [address] Glucose [Mass/Vol] 304 mg/dL Normal [facility] Comment on above: Result Comment: [place] om Glucose Reference Range is dependent on time and content of last meal. Glucose of more than 200 mg/dL in a nonstressed, ambulatory subject supports the diagnosis of Diabetes Mellitus. Performed By: #### P T #### [facility] [address] [place] [address] Commemt1 [facility] Comment on above: Result Comment: Glu2 : Result Not Confirmed PERFORMED BY: [place] [address] PATHOLOGIST [employer] SUPERVISOR DIANDRA LACY M.D. Performed By: #### B MP #### [address] [address] [place] Glucose [Mass/Vol] 440 mg/dL Off scale high [facility] Comment on above: Result Comment: [facility] Glucose Reference Range is dependent on time and content of last meal. Glucose of more than 200 mg/dL in a nonstressed, ambulatory subject supports the diagnosis of Diabetes Mellitus. Performed By: #### B MP #### [facility] [address] [place] [address] Hepatitis Acute Panelon 07-28 HBsAg Screen Negative Normal Negative [facility] Comment on above: Order Comment: DRAW ALL LABS WITH TROP AT 1647 Performed By: #### H EPACUTE #### [facility] , Hepatitis A Antibody IgM Negative Normal Negative [facility] Comment on above: Order Comment: DRAW ALL LABS WITH TROP AT 1647 Performed By: #### H EPACUTE #### [facility] , Hepatitis B Core Antibody IgM Negative Normal Negative [facility] Comment on above: Order Comment: DRAW ALL LABS WITH TROP AT 1647 Performed By: #### H EPACUTE #### [facility] , Hepatitis C Virus Antibody Non-Reactive Normal Non Reactive [facility] Comment on above: Order Comment: DRAW ALL LABS WITH TROP AT 1647 Performed By: #### H EPACUTE #### [facility] , Interpretation Hepatitis C Normal . [facility] Comment on above: Order Comment: DRAW ALL LABS WITH TROP AT 1647 Result Comment: Not infected with HCV unless early or acute infection is suspected (which may be delayed in an immunocompromised individual), or other evidence exists to indicate HCV infection. Performed at: - [facility] [address] [id number] Last Trimmer: Lee Bob PhD, Phone: [phone] PERFORMED BY: [place] [address] PATHOLOGIST [employer] SUPERVISOR DIANDRA LACY M.D. Performed By: #### H EPACUTE #### [facility] , Hepatitis B virus surface Ag [Presence] in Serum or Plasma by ImmunoassayOrdered By: Alicia Perea on 08-11-2022 HBV surface Ag IA Ql Negative Negative [facility] Hepatitis C virus IgG Ab [Pr esence] in Serum or Plasma by ImmunoassayOrdered By: Alicia Perea on 08-11-2022 HCV IgG IA Ql Non-Reactive Non Reactive [facility] Hepatitis C virus RNA [Units /volume] (viral load) in Serum or Plasma by SAVANNAH with probOrdered By: Alicia Perea on 08-11-2022 HCV RNA SAVANNAH+probe Qn N/A [facility] Hepatitis C virus RNA [log u nits/volume] (viral load) in Serum or Plasma by SAVANNAH withOrdered By: Alicia Perea on 08-11-2022 HCV RNA SAVANNAH+probe [Log units/Vol] N/A [facility] Laboratory - CoagulationOrde red By: Hiral Interiano on 08-11-2022 PT Coag (PPP) [Time] 12.2 s 9.0-12.9 [facility] Lymphocytes/100 WBC Manual c nt (Bld)Ordered By: Hiral Interiano on 08-11-2022 Lymphocytes/100 WBC (Bld) 5 % 18-42 [facility] Microcytes LM Ql (Bld)Ordere d By: Hiral Interiano on 08-11-2022 Microcytes Ql (Bld) Slight [facility] Monocytes/100 WBC Manual cnt (Bld)Ordered By: Hiral Interiano on 08-11-2022 Monocytes/100 WBC (Bld) 1 % 2-11 [facility] No Panel InformationOrdered By: Alicia Perea on 08-11-2022 Hepatitis A IgM Antibody Negative Negative [facility] Hepatitis B Core IgM Antibody Negative Negative [facility] Hepatitis C Interpretation See comment . [facility] Comment on above: Not infected with HC V unless early or acute infection issuspected (which may be delayed in an immunocompromisedindividual), or other evidence exists to indicate HCVinfection.Performed at: - [facility] [id number] Director: Lee Bob PhD, Phone: [phone] Hepatitis C RNA Quantitative N/A [facility] POINT OF CARE GLUCOSEon 07-28 Glucose [Mass/Vol] 132 mg/dL Critically high 74-106 [facility] Comment on above: Performed By: #### T SH, LIPID, T4, FT3, CMP #### [facility] [address] [address] [address] Alicia Patel Glucose [Mass/Vol] 117 mg/dL Critically high 74-106 [facility] Comment on above: Performed By: #### T SH, LIPID, T4, FT3, CMP #### [facility] [address] [address] [address] Alicia Patel Glucose [Mass/Vol] 95 mg/dL Normal 74-106 [facility] Comment on above: Performed By: #### P OCGLUC #### [facility] [address] [place] [address] Dr. Alicia Patel PROF CHEM 8 (BAS METB)on Creatinine [Mass/Vol] 17.89 mg/dL High 0.64-1.27 [facility] Comment on above: Performed By: #### T SH, LIPID, T4, FT3, CMP #### [facility] [address] [place] [address] Dr. Alicia Patel Performed By: #### B MP #### [facility] [address] Anion gap [Moles/Vol] 29.5 mmol/L Normal [facility] Comment on above: Performed By: #### T SH, LIPID, T4, FT3, CMP #### [facility] [address] [address] [address] Alicia Patel Calcium [Mass/Vol] 7.7 mg/dL Critically low 8.5-10.1 [facility] Comment on above: Performed By: #### T SH, LIPID, T4, FT3, CMP #### [facility] [address] [place] [address] Dr. Alicia Patel Chloride [Moles/Vol] 102 mmol/L Normal 98-107 [facility] Comment on above: Performed By: #### T SH, LIPID, T4, FT3, CMP #### [facility] [address] [place] [address] Dr. Alicia Patel CO2 [Moles/Vol] 13.5 mmol/L Critically low 21.0-32.0 [facility] Comment on above: Performed By: #### T SH, LIPID, T4, FT3, CMP #### [facility] [address] [place] [address] Dr. Alicia Patel EGFR-AF SENEGALESE 3 mL/min/1.73m2 Critically low >=[address] [facility] Comment on above: Performed By: #### T SH, LIPID, T4, FT3, CMP #### [facility] [address] [place] [address] Dr. Alicia Patel EGFR-NON AF SENEGALESE 3 mL/min/1.73m2 Critically low >=60 [facility] Comment on above: Performed By: #### T SH, LIPID, T4, FT3, CMP #### [facility] [address] [place] [address] Dr. Alicia Patel Glucose [Mass/Vol] 105 mg/dL Normal 74-[address] [facility] Comment on above: Performed By: #### T SH, LIPID, T4, FT3, CMP #### [facility] [address] [place] [address] Dr. Alicia Patel Potassium [Moles/Vol] 7.0 mmol/L Critically high 3.5-5.1 [facility] Comment on above: Performed By: #### T SH, LIPID, T4, FT3, CMP #### [facility] [address] [place] [address] Dr. Alicia Patel Sodium [Moles/Vol] 138 mmol/L Normal 136-[address] [facility] Comment on above: Performed By: #### T SH, LIPID, T4, FT3, CMP #### [facility] [address] [place] [address] Dr. Alicia Patel Urea nitrogen [Mass/Vol] 156.0 mg/dL Critically high 7.0-18.0 [facility] Comment on above: Performed By: #### T SH, LIPID, T4, FT3, CMP #### [facility] [address] [place], [place] [address] Dr. Alicia Patel Urea nitrogen/Creatinine [Mass ratio] 8.7 mg/mg Normal [facility] Comment on above: Performed By: #### T SH, LIPID, T4, FT3, CMP #### [facility] [address] [place], [place] [address] Dr. Alicia Patel Platelet adequacy [Presence] in Blood by Light microscopyOrdered By: Hiral Interiano on 08-11-2022 Platelets LM Ql (Bld) Normal Normal [facility] Platelet morphology finding [Identifier] in BloodOrdered By: Hiral Interiano on 08-11-2022 Platelet morphology finding Nom (Bld) Normal Normal [facility] Platelet poor plasma interna tional normalized ratio (INR) by coagulation assay (relatOrdered By: Hiral Interiano on 08-11-2022 INR Coag (PPP) [Relative time] 1.0 {INR} [facility] Comment on above: INR Therapeutic Rang [...] on 08-11-2022 Poikilocytosis LM Ql (Bld) Slight [facility] Prothrombin Time INRon 08-11 INR Coag (PPP) [Relative time] 1.0 {INR} Normal [facility] Comment on above: Result Comment: INR [...] 3 - 4.5 PERFORMED BY: [place] [address] PATHOLOGIST [employer] SUPERVISOR DIANDRA LACY M.D. Performed By: #### P T #### [address] PT Coag (PPP) [Time] 12.2 s Normal 9.0-12.9 [facility] Comment on above: Performed By: #### P T #### [address] RBC morphologyOrdered By: Donal Interiano on 08-11-2022 RBC morphology finding Nom (Bld) N/A [facility] Segmented neutrophils/100 WB C Manual cnt (Bld)Ordered By: Hiral Interiano on 08-11-2022 Segmented neutrophils/100 WBC (Bld) 94 % 50-70 [facility] Troponin I High Sensitivityo n 08-11-2022 Troponin I High Sensitivity 42 pg/mL High 0-20 [facility] Comment on above: Result Comment: PERF ORMED BY: [place] [address] PATHOLOGIST [employer] SUPERVISOR DIANDRA LACY M.D. Performed By: #### H S TROP ####[address] Troponin I High Sensitivity 16 pg/mL Normal 0-20 [facility] Comment on above: Result Comment: PERF ORMED BY: [place] [address] PATHOLOGIST [employer] SUPERVISOR DIANDRA LACY M.D. Performed By: #### P T #### [facility] [address] [place] [address] Troponin I.cardiac [Mass/vol ume] in Serum or Plasma by High sensitivity methodOrdered By: Hiral Interiano on 08-11-2022 Troponin I.cardiac High sensitivity method [Mass/Vol] 42 pg/mL 0-20 [facility] URINE MICROSCOPIC ONLYon BACTERIA TRACE Abnormal NONE SEEN [facility] Comment on above: Performed By: #### T SH, LIPID, T4, FT3, CMP #### [facility] [address] [address] [address] Alicia Patel Bacteria identified Cx Nom (U) NOT INDICATED Normal [facility] Comment on above: Performed By: #### T SH, LIPID, T4, FT3, CMP #### [facility] [address] [address] [address] Alicia Patel CAST NONE SEEN Normal NONE SEEN [facility] Comment on above: Performed By: #### T SH, LIPID, T4, FT3, CMP #### [facility] [address] [address] [address] Alicia Patel Crystals LM Nom (Urine sed) NONE SEEN Normal NONE SEEN [facility] Comment on above: Performed By: #### T SH, LIPID, T4, FT3, CMP #### [facility] [address] [address] [address] Alicia Patel Epithelial cells LM Ql (Urine sed) RARE Normal NONE SEEN /RARE [facility] Comment on above: Performed By: #### T SH, LIPID, T4, FT3, CMP #### [facility] [address] [address] [address] Alicia Patel MUCOUS NONE SEEN Normal NONE SEEN [facility] Comment on above: Performed By: #### T SH, LIPID, T4, FT3, CMP #### [facility] [address] [address] [address] Alicia Patel RBC 2-5 Abnormal 0-[address] [facility] Comment on above: Performed By: #### T SH, LIPID, T4, FT3, CMP #### [facility] [address] [address] [address] Alicia Patel WBC 2-5 Abnormal NONE SEEN [facility] Comment on above: Performed By: #### T SH, LIPID, T4, FT3, CMP #### [facility] [address] [place] [address] Dr. Alicia Patel XR CHEST 1 Von [...] BYERS Date: 2022-08-11 04:27 Normal [facility] XR chest 1V portableon 08-11 XR chest 1V portable [facility] [place] [address] [place] [address] XRay Report Signed Patient: Victorino Smyth MR#: [id number] : 1940 Acct:[id number] Age/Sex: 82 / M ADM Date: 08/11/22 Loc: Room: [address] [place] [address] Type: ADM IN Attending Dr: Hiral Interiano [...] Rehan Fuentes M.D.08/11/2022 4:10 PM Dictation Location: [place] [address] Transcribed By: [facility] 08/11/22 1610 Dictated By: Rehan Fuentes DO 08/11/22 1602 Signed By: 08/11/22 1610 [facility] Covid-19 PCR (CVDTBH)on SARS-CoV-2 (COVID-19) RNA SAVANNAH+probe Ql (Unsp spec) Not detected Normal NOT DETECTED [facility] Comment on above: Result Comment: This test is not yet approved or cleared by the [place] FDA. When there are no FDA-approved or cleared tests available, and other criteria are met, FDA can make tests available under an emergency access mechanism called an Emergency Use Authorization (EUA). The EUA for this test is supported by the [employer] of Health and Human Service's (HHS's) declaration [...] LIPID, T4, FT3, CMP #### [facility] [address] [place] [address] Dr. Alicia Patel INFLUENZA A AND B AGon 08-02 [facility] SEE BELOW Normal [facility] Comment on above: Result Comment: Nega tive for Flu A protein angiten. Infection due to Flu A cannot be ruled out. Flu A angiten in the sample may be below the detection limit of the test. Performed By: #### T SH, LIPID, T4, FT3, CMP #### [facility] [address] [place] [address] Dr. Alicia Patel [facility] SEE BELOW Normal [facility] Comment on above: Result Comment: Nega tive for Flu B protein antigen. Infection due to Flu B cannot be ruled out. Flu B antigen in the sample may be below the detection limit of the test. Performed By: #### T SH, LIPID, T4, FT3, CMP #### [facility] [address] [place] [address] Dr. Alicia Patel INFLUENZA A AG Negative Normal NEGATIVE SEE COMMENT [facility] Comment on above: Performed By: #### T SH, LIPID, T4, FT3, CMP #### [facility] [address] [place] [address] Dr. Alicia Patel INFLUENZA B AG Negative Normal NEGATIVE SEE COMMENT [facility] Comment on above: Performed By: #### T SH, LIPID, T4, FT3, CMP #### [facility] [address] [place] [address] Dr. Alicia Patel PTH INTACTon 05-25-2022 PTH, Intact 47 pg/mL Normal 15-[address] [facility] Comment on above: Performed By: #### T SH, LIPID, T4, FT3, CMP #### [facility] [address] [place] [address] Dr. Alicia Patel ALBUMINon 05-24-2022 Albumin [Mass/Vol] 3.9 g/dL Normal 3.4-5.0 [facility] Comment on above: Performed By: #### T SH, LIPID, T4, FT3, CMP #### [facility] [address] [place] [address] Dr. Alicia Patel HEMOGRAM AND PLATELon 2021 Hematocrit (Bld) [Volume fraction] 42.1 % Normal 42.0-54.0 [facility] Comment on above: Performed By: #### T SH, LIPID, T4, FT3, CMP #### [facility] [address] [place] [address] Dr. Alicia Patel Hemoglobin (Bld) [Mass/Vol] 14.7 g/dL Normal 14.0-18.[address] [facility] Comment on above: Performed By: #### T SH, LIPID, T4, FT3, CMP #### [facility] [address] [place] [address] Dr. Alicia Patel MCH (RBC) [Entitic mass] 33.2 pg Normal 25.9-34.0 [facility] Comment on above: Performed By: #### T SH, LIPID, T4, FT3, CMP #### [facility] [address] [place] [address] Dr. Alicia Patel MCHC (RBC) [Mass/Vol] 34.9 g/dL Normal 29.9-35.[address] [facility] Comment on above: Performed By: #### T SH, LIPID, T4, FT3, CMP #### [facility] [address] [place] [address] Dr. Alicia Patel MCV (RBC) [Entitic vol] 95.0 fL Critically high 80.0-94.[address] [facility] Comment on above: Performed By: #### T SH, LIPID, T4, FT3, CMP #### [facility] [address] [place] [address] Dr. Alicia Patel PLT 190 103/ul Normal 150-[address] [facility] Comment on above: Performed By: #### T SH, LIPID, T4, FT3, CMP #### [facility] [address] [place] [address] Dr. Alicia Patel RBC 4.43 106/ul Critically low 4.70-6.[address] [facility] Comment on above: Performed By: #### T SH, LIPID, T4, FT3, CMP #### [facility] [address] [place] [address] Dr. Alicia Patel WBC 7.0 103/ul Normal 4.0-11.[address] [facility] Comment on above: Performed By: #### T SH, LIPID, T4, FT3, CMP #### [facility] [address] [place] [address] Dr. Alicia Patel MAGNESIUMon 05-24-2022 Magnesium [Mass/Vol] 1.7 mg/dL Critically low 1.8-2.[address] [facility] Comment on above: Performed By: #### T SH, LIPID, T4, FT3, CMP #### [facility] [address] [place] [address] Dr. Alicia Patel PHOSPHORUSon 05-24-2022 Phosphate [Mass/Vol] 3.7 mg/dL Normal 2.6-4.[address] [facility] Comment on above: Performed By: #### T SH, LIPID, T4, FT3, CMP #### [facility] [address] [place] [address] Dr. Alicia Patel PROF CHEM 8 (BAS METB)on Anion gap [Moles/Vol] 11.2 mmol/L Normal [facility] Comment on above: Performed By: #### U RTPCR #### [facility] [address] [address] [address] Alicia Patel Calcium [Mass/Vol] 9.1 mg/dL Normal 8.5-10.1 [facility] Comment on above: Performed By: #### U RTPCR #### [facility] [address] [address] [address] Alicia Patel Chloride [Moles/Vol] 104 mmol/L Normal 98-107 [facility] Comment on above: Performed By: #### U RTPCR #### [facility] [address] [address] [address] Alicia Patel CO2 [Moles/Vol] 29.2 mmol/L Normal 21.0-32.0 [facility] Comment on above: Performed By: #### U RTPCR #### [facility] [address] [address] [address] Alicia Patel Creatinine [Mass/Vol] 1.40 mg/dL Critically high 0.70-1.30 [facility] Comment on above: Performed By: #### U RTPCR #### [facility] [address] [address] [address] Alicia Patel EGFR-AF SENEGALESE 59 mL/min/1.73m2 Critically low >=60 [facility] Comment on above: Performed By: #### U RTPCR #### [facility] [address] [address] [address] Alicia Patel EGFR-NON AF SENEGALESE 49 mL/min/1.73m2 Critically low >=60 [facility] Comment on above: Performed By: #### U RTPCR #### [facility] [address] [address] [address] Alicia Patel Glucose [Mass/Vol] 148 mg/dL Critically high 74-106 T [facility] Comment on above: Performed By: #### U RTPCR #### [facility] [address] [address] [address] Alicia Patel Potassium [Moles/Vol] 4.4 mmol/L Normal 3.5-5.[address] [facility] Comment on above: Performed By: #### U RTPCR #### [facility] [address] [address] [address] Alicia Patel Sodium [Moles/Vol] 140 mmol/L Normal 136-145 [facility] Comment on above: Performed By: #### U RTPCR #### [facility] [address] [place] [address] Dr. Alicia Patel Urea nitrogen [Mass/Vol] 16.0 mg/dL Normal 7.0-18.0 [facility] Comment on above: Performed By: #### U RTPCR #### [facility] [address] [place] [address] Dr. Alicia Patel Urea nitrogen/Creatinine [Mass ratio] 11.4 mg/mg Normal [facility] Comment on above: Performed By: #### U RTPCR #### [facility] [address] [place] [address] Dr. Alicia Patel UA RANDOM W/MICROSCOPICon BACTERIA NONE SEEN Normal NONE SEEN [facility] Comment on above: Performed By: #### T SH, LIPID, T4, FT3, CMP #### [facility] [address] [place] [address] Dr. Alicia Patel Bilirubin Ql (U) Negative Normal NEGATIVE [facility] Comment on above: Performed By: #### T SH, LIPID, T4, FT3, CMP #### [facility] [address] [place] [address] Dr. Alicia Patel CAST NONE SEEN Normal NONE SEEN [facility] Comment on above: Performed By: #### T SH, LIPID, T4, FT3, CMP #### [facility] [address] [place] [address] Dr. Alicia Patel Clarity (U) CLEAR Normal CLEAR [facility] Comment on above: Performed By: #### T SH, LIPID, T4, FT3, CMP #### [facility] [address] [address] [address] Alicia Patel Color (U) LT. YELLOW Normal YELLOW [facility] Comment on above: Performed By: #### T SH, LIPID, T4, FT3, CMP #### [facility] [address] [address] [address] Alicia Patel Crystals LM Nom (Urine sed) NONE SEEN Normal NONE SEEN [facility] Comment on above: Performed By: #### T SH, LIPID, T4, FT3, CMP #### [facility] [address] [address] [address] Alicia Patel Epithelial cells LM Ql (Urine sed) FEW Abnormal NONE SEEN /RARE [facility] Comment on above: Performed By: #### T SH, LIPID, T4, FT3, CMP #### [facility] [address] [place] [address] Dr. Alicia Patel Glucose Ql (U) Negative Normal NEGATIVE [facility] Comment on above: Performed By: #### T SH, LIPID, T4, FT3, CMP #### [facility] [address] [place] [address] Dr. Alicia Patel Hemoglobin Ql (U) Negative Normal NEGATIVE [facility] Comment on above: Performed By: #### T SH, LIPID, T4, FT3, CMP #### [facility] [address] [place] [address] Dr. Alicia Patel Ketones Ql (U) Negative Normal NEGATIVE [facility] Comment on above: Performed By: #### T SH, LIPID, T4, FT3, CMP #### [facility] [address] [place] [address] Dr. Alicia Patel LEUKOCYTES Negative Normal NEGATIVE [facility] Comment on above: Performed By: #### T SH, LIPID, T4, FT3, CMP #### [facility] [address] [address] [address] Alicia Patel MUCOUS NONE SEEN Normal NONE SEEN [facility] Comment on above: Performed By: #### T SH, LIPID, T4, FT3, CMP #### [facility] [address] [place] [address] Dr. Alicia Patel Nitrite Ql (U) Negative Normal NEGATIVE [facility] Comment on above: Performed By: #### T SH, LIPID, T4, FT3, CMP #### [facility] [address] [place] [address] Dr. Alicia Patel pH (U) 5.5 [pH] Normal 5-9 [facility] Comment on above: Performed By: #### T SH, LIPID, T4, FT3, CMP #### [facility] [address] [place] [address] Dr. Alicia Patel RBC NONE SEEN Abnormal 0-[address] [facility] Comment on above: Performed By: #### T SH, LIPID, T4, FT3, CMP #### [facility] [address] [place] [address] Dr. Alicia Patel SPEC GRAVITY 1.020 Normal 1.005-<=1. 025 [facility] Comment on above: Performed By: #### T SH, LIPID, T4, FT3, CMP #### [facility] [address] [place] [address] Dr. Alicia Patel UA PROTEIN Negative Normal NEGATIVE/ TRACE [facility] Comment on above: Performed By: #### T SH, LIPID, T4, FT3, CMP #### [facility] [address] [place] [address] Dr. Alicia Patel Urobilinogen Qn (U) 0.2 {Wil'U}/dL Normal 0.2 - 1. 0 [facility] Comment on above: Performed By: #### T SH, LIPID, T4, FT3, CMP #### [facility] [address] [place] [address] Dr. Alicia Patel WBC NONE SEEN Normal NONE SEEN [facility] Comment on above: Performed By: #### T SH, LIPID, T4, FT3, CMP #### [facility] [address] [place] [address] Dr. Alicia Patel URIC ACID SERUMon 05-24-2022 Urate [Mass/Vol] 5.6 mg/dL Normal 3.5-7.[address] [facility] Comment on above: Performed By: #### T SH, LIPID, T4, FT3, CMP #### [facility] [address] [address] [address] Alicia Patel URINE T PROTEIN CREAT RATIOo n 05-24-2022 Protein (U) [Mass/Vol] 26.0 mg/dL Critically high <=12.0 [facility] Comment on above: Performed By: #### T SH, LIPID, T4, FT3, CMP #### [facility] [address] [address] [address] Alicia Patel UR PROT CREAT RAT 0.34 Normal [facility] Comment on above: Performed By: #### T SH, LIPID, T4, FT3, CMP #### [facility] [address] [address] [address] Alicia Patel URINE CREAT 77.39 mg/dL Normal 20.00-300. 00 [facility] Comment on above: Performed By: #### T SH, LIPID, T4, FT3, CMP #### [facility] [address] [address] [address] Alicia Patel Vital Signs Date Time Vital Sign Value Performing Clinician Facility 06-14-2023 11:00-0500 Body height 175.26 cm Alicia Brit Other [facility] Other 06-14-2023 11:00-0500 Body mass index (BMI) [Ratio] 38.51 kg/m2 Alicia Brit Other [facility] Other 06-14-2023 11:00-0500 Body temperature 97.2 [degF] Alicia Brit Other [facility] Other 06-14-2023 11:00-0500 Body weight 118.3 kg Alicia Brit Other [facility] Other 06-14-2023 11:00-0500 Diastolic blood pressure 72 mm[Hg] Alicia Brit Other [facility] Other 06-14-2023 11:00-0500 Respiratory rate 18 /min Alicia Brit Other [facility] Other 06-14-2023 11:00-0500 SaO2% (BldA) [Mass fraction] 95 % Alicia Brit Other [facility] Other 06-14-2023 11:00-0500 Systolic blood pressure 122 mm[Hg] Alicia Rbit Other [facility] Other 11-29-2022 10:20-0400 Body height 175.26 cm Alicia Brit Other [facility] Other 11-29-2022 10:20-0400 Body mass index (BMI) [Ratio] 36.77 kg/m2 Alicia Brit Other [facility] Other 11-29-2022 10:20-0400 Body temperature 96.3 [degF] Alicia Brit Other [facility] Other 11-29-2022 10:20-0400 Body weight 112.95 kg Alicia Brit Other [facility] Other 11-29-2022 10:20-0400 Diastolic blood pressure 72 mm[Hg] Alicia Brit Other [facility] Other 11-29-2022 10:20-0400 Respiratory rate 18 /min Alicia Brit Other [facility] Other 11-29-2022 10:20-0400 SaO2% (BldA) [Mass fraction] 96 % Alicia Brit Other [facility] Other 11-29-2022 10:20-0400 Systolic blood pressure 137 mm[Hg] Alicia Brit Other [facility] Other 10-07-2022 17:25-0400 Heart rate 66 /min Ni OLIVARES [facility] 10-07-2022 17:25-0400 SaO2% (BldA) [Mass fraction] 92 % Ni OLIVARES [facility] 10-07-2022 17:25-0400 Respiratory rate 16 /min iN LOIVARES [facility] 10-07-2022 17:24-0400 Body temperature 97.7 [degF] Ni OLIVARES [facility] 10-07-2022 17:24-0400 Diastolic blood pressure 74 mm[Hg] Ni OLIVARES [facility] 10-07-2022 17:24-0400 Mean blood pressure 106 mm[Hg] Ni OLIVARES [facility] 10-07-2022 17:24-0400 Systolic blood pressure 170 mm[Hg] Ni OLIVARES [facility] 10-07-2022 16:18-0400 Heart rate 61 /min Ni OLIVARES [facility] 10-07-2022 16:18-0400 SaO2% (BldA) [Mass fraction] 95 % Ni COOK [facility] 10-07-2022 16:17-0400 Diastolic blood pressure 81 mm[Hg] Ni dscovered [facility] 10-07-2022 16:17-0400 Mean blood pressure 103 mm[Hg] Ni COOK [facility] 10-07-2022 16:17-0400 Systolic blood pressure 148 mm[Hg] Ni COOK [facility] 10-07-2022 16:17-0400 Respiratory rate 16 /min Ni COOK [facility] 10-07-2022 16:11-0400 Diastolic blood pressure 75 mm[Hg] Ni COOK [facility] 10-07-2022 16:11-0400 Heart rate 58 /min Ni COOK [facility] 10-07-2022 16:11-0400 Mean blood pressure 98 mm[Hg] Ni COOK [facility] 10-07-2022 16:11-0400 Respiratory rate 17 /min Ni COOK [facility] 10-07-2022 16:11-0400 SaO2% (BldA) [Mass fraction] 97 % Ni COOK [facility] 10-07-2022 16:11-0400 Systolic blood pressure 144 mm[Hg] Ni COOK [facility] 10-07-2022 16:00-0400 Mean blood pressure 92 mm[Hg] Ni COOK [facility] 10-07-2022 16:00-0400 Respiratory rate 13 /min Ni COOK [facility] 10-07-2022 15:55-0400 Mean blood pressure 86 mm[Hg] Ni COOK [facility] 10-07-2022 15:55-0400 Respiratory rate 17 /min Ni COOK [facility] 10-07-2022 15:46-0400 Body temperature 98.06 [degF] Ni OLIVARES [facility] 10-07-2022 15:40-0400 Respiratory rate 15 /min Ni OLIVARES [facility] 10-07-2022 10:14-0400 Mean blood pressure 97 mm[Hg] Ni OLIVARES [facility] 10-07-2022 10:14-0400 Blood Pressure Location Ni OLIVARES [facility] 10-07-2022 10:13-0400 Heart rate 64 /min Ni OLIVARES [facility] 10-07-2022 10:12-0400 Body temperature 98.06 [degF] Ni OLIVARES [facility] 10-07-2022 10:12-0400 Blood Pressure Location Ni OLIVARES [facility] 09-15-2022 14:40-0400 Body height 175.26 cm Alicia Brit Other [facility] [employer] Other 09-15-2022 14:40-0400 Body mass index (BMI) [Ratio] 37.48 kg/m2 Alicia Brit Other [facility] Other 09-15-2022 14:40-0400 Body weight 115.12 kg Alicia Brit Other [facility] Other 09-15-2022 14:40-0400 Diastolic blood pressure 73 mm[Hg] Alicia Brit Other [facility] Other 09-15-2022 14:40-0400 Respiratory rate 18 /min Alicia Brit Other [facility] [employer] Other 09-15-2022 14:40-0400 SaO2% (BldA) [Mass fraction] 97 % Alicia Brit Other [facility] [employer] Other 09-15-2022 14:40-0400 Systolic blood pressure 138 mm[Hg] Alicia Brit Other [facility] [employer] Other 09-06-2022 10:01-0400 Blood Pressure Location Ni dscovered [facility] 09-06-2022 10:01-0400 Diastolic blood pressure 70 mm[Hg] Ni dscovered [facility] 09-06-2022 10:01-0400 Heart rate 68 /min Ni dscovered [facility] 09-06-2022 10:01-0400 Systolic blood pressure 132 mm[Hg] Ni dscovered [facility] 08-15-2022 12:16-0500 Body temperature 97.8 [degF] MD Tray Alfaro Work Phone: [facility] 08-15-2022 12:16-0500 Diastolic blood pressure 92 mm[Hg] MD Tray Alfaro Work Phone: [facility] 08-15-2022 12:16-0500 Heart rate 68 /min MD Tray Alfaro Work Phone: [facility] 08-15-2022 12:16-0500 Respiratory rate 18 /min MD Tray Alfaro Work Phone: [facility] 08-15-2022 12:16-0500 SaO2% (BldA) [Mass fraction] 95 % MD Tray Alfaro Work Phone: [facility] 08-15-2022 12:16-0500 Systolic blood pressure 146 mm[Hg] MD Tray Alfaro Work Phone: [facility] 08-15-2022 05:08-0500 Body weight 118.2 kg MD Tray Alfaro Work Phone: [facility] 08-13-2022 13:10-0500 Inhaled oxygen flow rate 8 L/min MD Tray Alfaro Work Phone: [facility] 08-13-2022 11:54-0500 Body height 177.8 cm MD Tray Alfaro Work Phone: [facility] 08-13-2022 11:54-0500 Body mass index (BMI) [Ratio] 37.3 kg/m2 MD Tray Alfaro Work Phone: [facility] 06-01-2022 11:40-0500 Body height 175.26 cm Alicia Brit Other [facility] Other 06-01-2022 11:40-0500 Body mass index (BMI) [Ratio] 37.77 kg/m2 Alicia Brit Other [facility] Other 06-01-2022 11:40-0500 Body temperature 97.5 [degF] Alicia Brit Other [facility] Other 06-01-2022 11:40-0500 Body weight 116.03 kg Alicia Brit Other [facility] Other 06-01-2022 11:40-0500 Diastolic blood pressure 71 mm[Hg] Alicia Brit Other [facility] Other 06-01-2022 11:40-0500 Respiratory rate 18 /min Alicia Brit Other [facility] Other 06-01-2022 11:40-0500 SaO2% (BldA) [Mass fraction] 93 % Alicia Brit Other [facility] Other 06-01-2022 11:40-0500 Systolic blood pressure 134 mm[Hg] Alicia Brit Other [facility] Other 11-24-2021 11:20-0400 Body height 175.26 cm Alicia Brit Other [facility] Other 11-24-2021 11:20-0400 Body mass index (BMI) [Ratio] 36.26 kg/m2 Alicia Brit Other [facility] Other 11-24-2021 11:20-0400 Body temperature 96.4 [degF] Alicia Brit Other [facility] Other 11-24-2021 11:20-0400 Body weight 111.4 kg Alicia Brit Other [facility] Other 11-24-2021 11:20-0400 Diastolic blood pressure 72 mm[Hg] Alicia Brit Other [facility] Other 11-24-2021 11:20-0400 Respiratory rate 18 /min Alicia Brit Other [facility] Other 11-24-2021 11:20-0400 SaO2% (BldA) [Mass fraction] 95 % Alicia Brit Other [facility] Other 11-24-2021 11:20-0400 Systolic blood pressure 139 mm[Hg] Alicia Brit Other [facility] Other 10-26-2021 09:17-0400 Blood Pressure Location Milton BRAUN [facility] 10-26-2021 09:17-0400 Diastolic blood pressure 69 mm[Hg] Milton BRAUN [facility] 10-26-2021 09:17-0400 Heart rate 64 /min Milton BRAUN [facility] 10-26-2021 09:17-0400 Respiratory rate 16 /min Milton BRAUN [facility] 10-26-2021 09:17-0400 Systolic blood pressure 139 mm[Hg] Milton BRAUN [facility] 05-26-2021 11:00-0500 Body height 175.26 cm Alicia Brit Other [facility] Other 05-26-2021 11:00-0500 Body mass index (BMI) [Ratio] 34.4 kg/m2 Alicia Brit Other [facility] Other 05-26-2021 11:00-0500 Body temperature 96.9 [degF] Alicia Brit Other [facility] Other 05-26-2021 11:00-0500 Body weight 105.69 kg Alicia Brit Other [facility] Other 05-26-2021 11:00-0500 Diastolic blood pressure 80 mm[Hg] Alicia Brit Other [facility] Other 05-26-2021 11:00-0500 Respiratory rate 18 /min Alicia Brit Other [facility] Other 05-26-2021 11:00-0500 SaO2% (BldA) [Mass fraction] 94 % Alicia Brit Other [facility] Other 05-26-2021 11:00-0500 Systolic blood pressure 136 mm[Hg] Alicia Brit Other [facility] Other Encounters Encounter Date Encounter Type Care Provider Facility Start: 06-12-2024 ambulatory Ni OLIVARES Facility :[facility] Start: 07-02-2023 End: 07-02-2023 ambulatory Ni Olivares Facility:[facility] Start: 07-02-2023 End: 07-02-2023 ambulatory MD Tray Alfaro Work Phone: [facility] Work Phone: Start: 07-02-2023 End: 07-02-2023 Patient encounter procedure MD Tray Alfaro Work Phone: [facility] Work Phone: Start: 06-28-2023 End: 06-28-2023 ambulatory Ni Olivares Facility:[facility] Start: 06-28-2023 End: 06-28-2023 ambulatory MD Tray Alfaro Work Phone: [facility] Work Phone: Start: 06-28-2023 End: 06-28-2023 Patient encounter procedure MD Tray Alfaro Work Phone: [facility] [place] Work Phone: Start: 06-16-2023 End: 06-16-2023 ambulatory Ni Olivares Facility:[facility] Start: 06-16-2023 End: 06-16-2023 ambulatory MD Tray Alfaro Work Phone: [facility] Work Phone: Start: 06-16-2023 End: 06-16-2023 Patient encounter procedure MD Tray Alfaro Work Phone: [facility] [place] Work Phone: Start: 06-14-2023 Office outpatient vi sit 25 minutes Alicia Brit [facility] Start: 06-14-2023 End: 06-15-2023 ambulatory Ni OLIVARES [facility] Other Start: 06-14-2023 End: 06-14-2023 Patient encounter procedure Ni OLIVARES [facility] Start: 01-26-2023 End: 01-26-2023 ambulatory [facility] Start: 12-20-2022 End: 12-21-2022 ambulatory Ni OLIVARES Facility:[facility] Start: 12-20-2022 End: 12-20-2022 Patient encounter procedure Ni OLIVARES [facility] Start: 12-02-2022 End: 12-02-2022 ambulatory Ni OLIVARES Facility:[facility] Start: 11-29-2022 End: 11-29-2022 ambulatory Alicia Brit Other [facility] [employer] Other Start: 11-29-2022 Office outpatient vi sit 25 minutes Alicia Brit [facility] Start: 11-18-2022 End: 11-19-2022 ambulatory MD ALICIA PEREA Facility:[facility] Start: 11-18-2022 End: 11-19-2022 ambulatory Ni OLIVARES Facility:[facility] Start: 11-17-2022 End: 11-17-2022 ambulatory [facility] Start: 11-17-2022 End: 11-17-2022 Encounter for preprocedural cardiovascular examination [facility] Start: 11-10-2022 End: 11-24-[address] TRAY ALFARO . Facility: Start: 11-08-2022 End: 11-08-[address] TRAY ALFARO . Facility: Start: 11-06-2022 End: 11-07-[address] TRAY ALFARO . Facility: Start: 10-29-2022 End: 10-30-2022 ambulatory Milton BRAUN Facility:[facility] Start: 10-29-2022 End: 10-29-2022 Patient encounter procedure Milton BRAUN [facility] Start: 10-26-2022 End: 10-27-2022 ambulatory IRIS CORONEL Facility: Start: 10-22-2022 End: 10-23-[address] MILTON BRAUN . Facility: Start: 10-15-2022 End: 10-16-[address] TRAY ALFARO . Facility: Start: 10-14-2022 End: 10-15-2022 ambulatory IRIS CORONEL Facility: Start: 10-14-2022 End: 10-14-2022 ambulatory [facility] Start: 10-07-2022 End: 10-07-2022 ambulatory Ni OLIVARES Facility:[facility] Start: 10-07-2022 End: 10-07-2022 Admission to same day surgery center Ni OLIVARES [facility] Start: 09-15-2022 End: 09-15-2022 ambulatory Alicia Perea Other [employer] Other Start: 09-15-2022 Office outpatient vi sit 25 minutes Alicia Brit [facility] Start: 09-14-2022 End: 09-15-2022 ambulatory Ni OLIVARES Facility:[id number] Start: 09-13-2022 End: 09-14-2022 ambulatory ALICIA BRIT Facility:[facility] Start: 09-06-2022 End: 09-07-2022 ambulatory Ni OLIVARES Facility:[facility] Start: 09-06-2022 End: 09-06-2022 Patient encounter procedure Ni OLIVARES [facility] Start: 09-01-2022 End: 09-02-[address] NI OLIVARES Facility:[facility] Start: 08-31-2022 End: 08-31-2022 ambulatory Tray Alfaro Facility:[facility] Start: 08-24-2022 End: 08-25-[address] TRAY ALFARO . Facility:[facility] Start: 08-22-2022 End: 08-22-[address] TRAY ALFARO . Facility:[facility] Start: 08-21-2022 End: 08-22-[address] TRAY ALFARO . Facility:[facility] Start: 08-18-2022 End: 08-19-2022 ambulatory ALICIA PURDYDIR Facility:[facility] Start: 08-16-2022 ambulatory Ni OLIVARES Facility:[facility] Start: 08-11-2022 ambulatory Facility:[facility] Start: 08-11-2022 Patient encounter status MD Iglesias Work Phone: [facility] Start: 08-11-2022 Encounter for preprocedural cardiovascular examination Hiral Interiano [facility] Start: 08-11-2022 End: 08-15-2022 Evaluation and management of inpatient Gita Mischler Facility:[facility] Start: 08-11-2022 End: 08-15-2022 Encounter for preprocedural cardiovascular examination MD Tray Alfaro Work Phone: [facility] Start: 08-11-2022 End: 08-15-2022 Evaluation and management of inpatient MD Tray Alfaro Work Phone: [facility] Work Phone: Start: 08-11-2022 End: 08-14-2022 ambulatory THADDEUS DAUGHERTY Facility:[facility] Start: 08-02-2022 End: 08-02-[address] TRAY ALFARO . Facility:[facility] Start: 07-08-2022 End: 07-23-[address] TRAY ALFARO . Facility:[facility] Start: 06-01-2022 End: 06-01-2022 ambulatory Alicia Brit Other [employer] Other Start: 06-01-2022 Office outpatient vi sit 25 minutes Alicia Brit [facility] Start: 05-24-2022 End: 05-25-2022 ambulatory ALICIA BRIT Facility:[facility] Start: 02-03-2022 End: 02-04-[address] TRAY ALFARO . Facility:[facility] Start: 11-24-2021 End: 11-24-2021 ambulatory Alicia Brit Other [facility] Other Start: 11-24-2021 Office outpatient vi sit 25 minutes Alicia Brit [facility] Start: 10-26-2021 End: 10-26-2021 Patient encounter procedure Milton BRAUN [facility] Start: 05-26-2021 End: 05-26-2021 ambulatory Alicia Brit Other [facility] Other Start: 05-26-2021 Office outpatient vi sit [...] LIPID, T4, FT3, CMP #### [facility] [address] [address] [address] Alicia Patel Start: 10-07-2022 Extracorporeal shock wave lithotripsy of calculus of kidney Ni OLIVARES Start: 08-21-2022 PSA screening ALICIA QAD IR Comment on above: Performed By: #### P SAD #### [facility] [address] [address] [address] Alicia Patel Start: 08-13-2022 Cystoscopy MD Tray Alfaro Work Phone: Start: 08-11-2022 Plain chest X-ray MD Iglesias Work Phone: Start: 08-01-2019 Transurethral prostatectomy Milton BRAUN Start: 07-04-2019 Biopsy of prostate Patr humaira KADE Start: 06-27-2019 cystoscopy, bilatera l, ureteroscopy, laser lithotripsy Milton BRAUN ear surgery Milton BRAUN ear surgery Ni OLIVARES Plan of Treatment Date Care Activity Detail Author Start: 08-15-2022 [facility] Start: 08-14-2022 Microbial culture of sputum [facility] Start: 08-14-2022 Aerobic Culture Aerobic Culture [facility] Start: 08-14-2022 Investigation of tra nsfusion reaction Gram Stain [facility] Start: 08-11-2022 Hospital admission [facility] Start: 08-11-2022 Referral to automatic fancy machine operator [facility] Start: 08-11-2022 Referral to customs and border protection officer [facility] Start: 08-11-2022 Referral to urologist [facility] CT Chest WO contrast [facility] Patient referral [facility] Work Phone: Renal function 2000 panel - Serum or Plasma [facility] Immunizations Immunization Date Immunization Notes Care Provider Fa cility 05-02-2023 pneumococcal 20-marco nt conjugate vaccine Ni OLIVARES [facility] 05-02-2023 tetanus toxoid, redu martha diphtheria toxoid, and acellular pertussis vaccine, adsorbed Ni OLIVARES [facility] 03-29-2022 SARS-CoV-2 (COVID-19 ) mRNAMUL.ORD![id number] Ni OLIVARES [facility] 05-18-2021 SARS-CoV-2 (COVID-19 ) Ad26 vaccine, recombinant Ni OLIVARES [facility] 03-30-2021 influenza virus vaccine, unspecified formulation Ni OLIVARES [facility] 09-01-2020 SARS-CoV-2 (COVID-19 ) Ad26 vaccine, recombinant Ni OLIVARES [facility] 06-27-2020 SARS-CoV-2 (COVID-19 ) Ad26 vaccine, recombinant Milton BRAUN [facility] [place] 04-18-2020 influenza virus vaccine, unspecified formulation Ni OLIVARES [facility] 02-05-2020 zoster vaccine recombinant Ni OLIVARES [facility] 12-06-2019 zoster vaccine recombinant Ni OLIVARES [facility] 04-04-2019 influenza virus vaccine, unspecified formulation Milton BRAUN [facility] 04-05-2017 influenza virus vaccine, unspecified formulation Ni OLIVARES [facility] 04-05-2017 pneumococcal conjuga te vaccine, 13 valent Ni OLIVARES [facility] 04-12-2016 influenza, unspecifi ed formulation Ni OLIVARES [facility] Payers Date Payer Category Payer Medicare [id number] 2022 Self-pay [id number] 1959 Private Health Insurance [id number] 2..[id number] 1959 Private Health Insurance [id number] 1942 Unknown [id number] 2.16.840.1.276961.3.579.2.356 1942 Unknown [id number] 2.16.840.1.257839.3.579.2.593 1942 Unknown [id number] 2.16.840.1.110240.3.579.2.593 1942 Unknown [id number] 2.16.840.1.450487.3.579.2.593 1942 Unknown [id number] 2.16.840.1.066985.3.579.2.593 1942 Unknown [id number] 2.16.840.1.567968.3.579.2.593 023 Unknown [id number] 2.16.840.1.552643.3.579.2.593 1942 Unknown [id number] 2.16.840.1.564420.3.579.2.593 1942 Unknown [id number] 2.16.840.1.101014.3.579.2.593 1942 Unknown [id number] 2.16.840.1.738044.3.579.2.593 1942 Unknown [id number] 2.16.840.1.835414.3.579.2.593 1942 Unknown [id number] 2.16.840.1.326804.3.579.2.593 1942 Unknown [id number] 2.16.840.1.378930.3.579.2.593 1942 Unknown [id number] 2.16.840.1.483815.3.579.2.593 1942 Unknown [id number] 2.16.840.1.929806.3.579.2.593 1942 Unknown [id number] 2.16.840.1.132804.3.579.2.593 1942 Unknown [id number] 2.16.840.1.664819.3.579.2.593 1942 Unknown [id number] 2.16.840.1.538239.3.579.2.593 1942 Unknown [id number] 2.16.840.1.578462.3.579.2.593 1942 Unknown [id number] 2.16.840.1.083440.3.579.2.593 1942 Unknown [id number] 2.16.840.1.615595.3.579.2.727 1942 Unknown [id number] 2.16.840.1.241904.3.579.2.727 1942 Unknown [id number] 2.16.840.1.484568.3.579.2. 1942 Unknown [id number] 2.16.840.1.413974.3.579.2.72 1942 Unknown [id number] 2.16.840.1.722046.3.579.2. 1942 Unknown [id number] 2.16.840.1.013890.3.579.2.72 1942 Unknown [id number] 2.16.840.1.213258.3.579.2. 1942 Unknown [id number] 2.16.840.1.269865.3.579.2. 1942 Unknown [id number] 2.16.840.1.472461.3.579.2.72 1942 Unknown [id number] 2.16.840.1.344075.3.579.2. 1942 Unknown [id number] 2.16.840.1.440931.3.579.2.72 Medicare [id number] 2.16.8 40.1.117869.19 Medicare [id number] 2.1 6.840.1.014644.19 Unknown [place] BC/BS [id number] Unknown [id number] 2.16.840.1.714347.3.579.2.531 Unknown [id number] 2.16.840.1.062044.3.579.2.531 Unknown [id number] 2.16.840.1.893104.3.579.2.531 Unknown [id number] 2.16.840.1.766240.3.579.2.531 Unknown [id number] 2.16.840.1.557928.3.579.2.531 Social History Date Type Detail Facility Start: 08-18-2020 End: 08-13-2022 Tobacco smoking status Ex-smoker (finding) [facility] [employer] Other Comment on above: quit in 1978 Sex Assigned At Male [facility] [employer] Other Start: 1940 Sex Assigned At Male [facility] Tobacco smoking status Never [facility] Comment on above: quit in 1978 Medical Equipment Procedure Code Equipment Code Equipment Origin al Text Equipment Identifier Dates Cystoscopy, with ureteral calculus manipulation and stent placement Polymeric ureteral stent ()[id number] FDA Start: 06-15-2019 Cystoscopy, with ureteral calculus manipulation and stent placement Polymeric ureteral stent ()[id number] FDA Start: 06-15-2019 Cystoscopy, with ureteral calculus manipulation and stent placement Polymeric ureteral stent ()[id number] FDA Start: 08-13-2022 Biopsy, prostate, with US guidance Polymeric ureteral stent ()[id number] FDA Start: 07-04-2019 CYSTOSCOPY URETEROSCOPY Ni OLIVARES MD 12/02/22 Unknown Ureter R {[id number] FDA Start: 12-02-2022 Goals Date Patient Goal Desired Activity /State Functional Status Date Assessment Result Facility 12-20-2022 Functional Status N/A [facility] 09-06-2022 Functional Status N/A [facility] 08-15-2022 Functional status Patient at Baseline [facility] Work Phone: Mental Status Date Assessment Result Facility 08-15-2022 Cognitive function Cognitive Sta tus Patient at Baseline [facility] Work Phone: Clinical Notes 05-26-2021 to 06-14-2023 Note Date & Type Note Facility 06-14-2023 Evaluation note Encounter Date Diagnosis Assessment Notes May, 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 [employer] Other [id number] Hospital Discharge instructions Patient Education 06/14/2023 09:44:12 [...] include: ?8 oz (237 mL) of milk, bfcqmpl-nargsunbkzem-kxtxn milk, and calcium- fortifiedfruit juice. Calcium-fortified means [...] ?Spinach (cooked), rhubarb, beets, sweet potatoes, and Nigerian chard. ?Peanuts. ?Potato chips, armenian fries, and baked potatoes with skin on. ?Nuts and nut products. ?Chocolate. If you regularly take a diuretic medicine, make sure to eat at least 1 or 2 servings of fruits or vegetables that are high in potassium each day. These include: ?Avocado. ?Banana. ?[place], prune, carrot, or tomato juice. ?Baked potato. [...] magnesium, fish oil, or vitamin B6. Take dzwk-oaq-hyoswkh and prescription medicines only as told by [...] Casseroles. Pizza. Lasagna. Frozen meals. Potato chips. [place] fries. The items listed above may not [...] provider. Document Revised: 09/23/2022 Document Reviewed: 09/23/2022 [employer] Patient Education 2022 [employer]. Follow Up Care 02/04/2023 14:47:08 With:CARLOS OLIVEROS, Ni Garcia, URL Address: [address] [place] [address] [place], [place] [id number]- When: Unknown [facility] [id number] NoteUT Cardiology - [facility] Subjective Victorino Smyth is [...] March of 2013, and then developed acute KY related to ISR of the LAD stent on 09/28/2016 and underwent emergent Promus JOSE RAMON stent to the LAD at [facility], was on Brilinta but currently on aspirin [...] Disp: , Rfl: liothyronine (more content not included)...[facility] 12-21-2022 [id number]:127[facility]06-26-2023 NoteCystoscopy with Stent Removal ? Voiding [...] you have a fever over 100 degrees.[facility] 12-20-2022 Hospital Discharge instructions Patient [...] Up Care 12/07/2022 13:42:13 With:Ni CARLOS Address: [facility] [employer] [address] [id number] [facility] (1) When:6 months Comments:Call for followup [...] those arrangements as well.Have a great day. [facility]06-05-2023 Evaluation note* Encounter Date Diagnosis Assessment Notes Treatment Notes Treatment Clinical Notes Nov, Diabetes mellitus wi th chronic kidney disease (ICD-10 - E11.22) He has bhk-jainljs-mowx ndent type 2 diabetes and currently takes [...] and has normal B12 and folate level. [employer] Other [id number] NoteRCRI- 2???points Class III Risk 10.1???% 30-day risk of , KY, or cardiac arrest EKG at last visit [...] and prevent any major fluid shifts. Thank YouUnUniversity [facility]05-24-2023 NoteCoronary artery disease is stable, angina much improved s/p increased imdur dose and adding ranexa. Continue GDMTUnUniversity Hospitals Cleveland Medical Center05-24-2023 NotePatient here for 1 mo [...] Risk 10.1 % 30-day risk of , KY, or cardiac arrest EKG at last visit SR with 1st Degree AV block- no acute changes. From a cardiology perspective pt may proceed with planned urological procedure, he is a moderate risk for a low-moderate risk procedure. May hold ASA for 5-7 days prior (more content not included)...[facility] 11-17-2022 NoteHypertension is well controlled today 126/60 with increased norvasc and imdur doses Continue norvasc, lisinopril, imdur, Renal function being monitored by nephrologyUnUniversity [facility]als [facility] 11-17-2022 NoteContinue statin- lipid level well controlledUnUniversity [facility]als [facility]05-24-2023 [id number]:127 [facility]04-20-2023 NoteContinue statinUnUniversity [facility]als [facility]04-20-2023 NoteIncrease imdur to 120 mg and start ranexa as per Dr Huynh's recommendationsUnUniversity [facility]als [facility]04-20-2023 Note Reviewed concerning symptoms and [...] pain, angina, shortness of breath or further concerns.[facility]04-20-2023 NoteUTP CARDIOLOGY PROGRESS NOTE HPI: Victorino Smyth is a 82 y.o. male here for Chest Pain, Coronary Artery Disease, and Hypertension Patient here c/o chest tightness/burning with exertion the past few months. Says it feels similar to 2017 when he had an KY. Has been becoming more intense lately. States [...] March of 2013, and then developed acute KY related to ISR of the LAD stent on 09/28/2016 and underwent emergent Promus JOSE RAMON stent to the LAD at [facility], was on Brilinta but currently on aspirin [...] medications on file p (more content not included)...[facility]04-20-2023 NotePatient here c/o chest tightness with exertion the past few months. Says it feels similar to 2017 when he had an KY. Has been becoming more intense lately. Says [...] pain. All other systems reviewed and are negative.[facility] 10-07-2022 Hospital Discharge instructions Patient Education [...] Follow these instructions at home: Medicines Take msfy-mhn-xlcugrn and prescription medicines only as told by [...] 07/02/2008 Document Revised: 09/24/2019 Document Reviewed: 05/04/2017 [employer] Patient Education 2020 [employer] Follow Up Care 09/06/2022 10:38:13 With:Ni OLIVARES Address: [address] [place], [place] [id number] Business (1) When: Unknown Comments:We were able [...] prior to considering any other anesthesia procedures. [facility]04-13-2023 Evaluation + Plan noteExtracted from: Title:KALEN post op Author:Timothy Pittman MD Date:10/07/22 Plan Transfer/Discharge: Transfer/Discharge Discharge when meets criteria ( To home ). Extracted from: Title:KALEN [place] Author:Timothy Pittman MD Date:10/07/22 Plan [place] [employer] of Anesthesiologists (ASA) physical status classification: Class III. Anesthetic Preoperative Plan: Anesthesia General. Future Appointments Appointment Date:10/29/2022 08:45:00 AM Scheduled Provider:Milton BRAUN MD Location:[facility] Appointment Type:URO Office Visit [facility]03-23-2023 Note [id number]:127[facility] 09-15-2022 Evaluation note* Encounter Date Diagnosis Assessment Notes Treatment Notes Treatment Clinical Notes Aug, Diabetes mellitus wi th chronic kidney disease (ICD-10 - E11.22) He has spi-akhdtdd-ugfu ndent type 2 diabetes and currently takes [...] have advised him to adequately hydrate himself. [employer] Other 03-13-2023 Hospital Discharge instructions Patient Education 09/06/2022 10:27:16 Kidney Stones, Lbmf-vk-Jizi Kidney Stones Kidney stones are rock-like masses [...] Follow these instructions at home: Medicines Take uykx-wap-nctsghe and prescription medicines only as told by [...] 11/29/2008 Document Revised: 10/30/2019 Document Reviewed: 10/30/2019 [employer] Patient Education 2020 [employer] Follow Up Care 08/17/2022 09:18:37 With:CARLOS OLIVEROS, Ni Garcia, URL Address: [address] [place], [place] [address]- When: Unknown [facility] [id number] Note [id number]:127[facility] 08-15-2022 Discharge summary Author Hiral Interiano [facility] August 15, 2022 1:50pm Note Date/Time August 15, 2022 1:50pm [facility] [address] [place] [address] Discharge Summary Signed Patient: Victorino Smyth MR#: [id number] : 1940 Acct:[id number] Age/Sex: 82 / M Adm Date: 3 Loc: 4N Room: 9A1556-[address]: Hiral Interiano MD Copies to: [...] nephrolithiasis. He initially presented to [facility] ER with complaint of hypoglycemia and was found to have severe renal failure along with metabolic acidosis and hyperkalemia. CT scan at [place] ER showed atrophic left kidney with obstructing stone in the right ureteropelvic junction. Patient was transferred to [facility] for further intervention. On arrival is [...] is also advised to follow-up with his automatic fancy machine operator in 4-week. CT scan at [place] ER also showed 0.8 cm nodule on [...] Low-Cholesterol Additional Instructions: Follow-up with your Primary Search Engine Optimization Analyst in 4 weeks. Avoid NSAIDs for pain [...] office on Tuesday to schedule follow-up with Paramedic Rn. ) Documented By: Hiral Interiano MD 08/15/22 1977 Signed By: <Electronically signed by Hiral Interiano MD> 08/15/22 0336 [facility] Work Phone: 1(297) 601-475202-19-2023 Progress note Author Alicia Perea [facility] August 15, 2022 12:01pm Note Date/Time August 15, 2022 12:01pm [facility] [address] [place] [address] Nephrology Progress Note Signed Patient: Victorino Smyth MR#: [id number] : 1940 Acct:[id number] Age/Sex: 82 / M Adm Date: 3 Loc: Room: [address] [place] [address] Type: ADM IN Attending Dr: Hiral Interiano MD Copies to: ~ Date of Service: 08/15/2022 Subjective Subjective Narrative: This is a 82-year-old male with a medical history of coronary artery disease s/pPCI, nephrolithiasis, CKD, diabetes mellitus, hypertension, dyslipidemia was presented to the emergency room of [facility] for generalized weakness and low urine output. On evaluation emergency room patient was found to have a life- threatening hyperkalemia with serum potassium 7 mmol/L, acute kidney injurywith elevated serum creatinine 17.8 mg/dL, metabolic acidosis serum bicarbonate 13.5 mmol/L. He was given insulin D50 calcium gluconate in the [place] emergency room. He had a CAT scan abdomen pelvis done which showed obstructive kidney stones in the right UPJ and total atrophy of the left kidney. Case was discussed with the on-call urologist Dr. Olivares and recommended patient needs to be n.p.o. for surgical intervention. He was [facility] for further care. Patient is history of CKD due to the longstanding DM, HTN and recurrent KELSEA with baseline serum creatinine 1.4 to 1.6 mg/dL. He follows in my office for his CKD care. [facility] had[facility] repeat labs done which showed persistent [...] visible mass Skin: No rashes or bruises PHARMACY INTERN: Awake,Alert, following simple command Musculoskeletal: No joint [...] 10 Mg Tablet) 10 mg PO DAILY [facility] Stop: 08/16/23 08:59 Aspirin (Aspirin 81 Mg Tablet.Dr) 81 mg PO DAILY [facility] Stop: 08/12/23 08:59 Last Admin: 08/15/22 09:45 Dose: 81 mg Atorvastatin Calcium (Atorvastatin 40 Mg Tablet) 40 mg PO HS [facility] Stop: 08/11/23 21:59 Last Admin: 08/14/22 21:08 [...] Units/3 Ml Insuln.Pen) 0 units SUBCUT TID.WM.HS [facility]; Protocol Stop: 08/11/23 16:59 Last Admin: 08/15/22 09:46 Dose: 5 units Insulin Glargine (Insulin Glargine 300 Units/3 Ml Insuln.Pen) 5 units SUBCUT DAILY [facility] Stop: 08/13/23 08:59 Last Admin: 08/15/22 09:47 Dose: 5 units Melatonin (Melatonin 5 Mg Tablet) 5 mg PO QHS PRN PRN Reason: insomnia Stop: 08/14/23 21:59 Last Admin: 08/14/22 21:08 Dose: 5 mg Metoprolol Tartrate (Metoprolol Tartrate 50 Mg Tablet) 50 mg PO BID [facility] Stop: 08/11/23 20:59 Last Admin: 08/15/22 09:45 [...] signed by Alicia Perea MD> 08/15/22 1201 [facility] Work Phone: 1(988) 634-768902-19-2023 Progress note Author Cade Alvarez [facility] August 15, 2022 11:31am Note Date/Time August 15, 2022 11:31am [facility] [address] [place] [address] Cardiology Progress Note Signed Patient: Victorino Smyth MR#: [id number] : 1940 Acct:[id number] Age/Sex: 82 / M Adm Date: 3 Loc: 4N Room: [address] [place] [address] Type: ADM IN Attending Dr: Hiral Interiano [...] patient has cardiology 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 (2) CAD (coronary artery disease): Code(s): I25.10 - Atherosclerotic heart disease of [place] coronary artery without angina pectoris Status: Acute [...] signed by Cade Alvarez MD> 08/15/22 1131 [facility] Work Phone: 1(238) 938-647502-18-2023 Progress note Author Hiral Interiano [facility] August 14, 2022 2:57pm Note Date/Time August 14, 2022 2:49pm [facility] [address] [place] [address] Hospitalist Progress Note Signed Patient: Victorino Smyth MR#: [id number] : 1940 Acct:[id number] Age/Sex: 82 / M Adm Date: 3 Loc: 4N Room: [address] [place] [address] Type: ADM IN Attending Dr: Hiral Interiano [...] Vial SUBCUT 08/12/23 21:59 Not Given Q8HR [facility] Hydralazine HCl 10 mg 08/11/22 13:41 08/14/22 [...] Ml Insuln.Pen SUBCUT 08/11/23 16:59 Not Given TID.[facility] Protocol Insulin Glargine 5 units 08/13/22 09:00 08/14/22 11:59 Insulin Glargine 300 Units/3 Ml Insuln.Pen SUBCUT 08/13/23 08:59 5 units DAILY [facility] Administration Metoprolol Tartrate 50 mg 08/11/22 21:00 [...] days. Documented By: Hiral Interiano MD 08/14/22 8348 Signed By: <Electronically signed by Hiral Interiano MD> 08/14/22 1457 [facility] Work Phone: [phone] Progress note Author Alicia Perea [facility] August 14, 2022 11:55am Note Date/Time August 14, 2022 11:55am [facility] [address] [place] [address] Nephrology Progress Note Signed Patient: Victorino Smyth MR#: [id number] : 1940 Acct:[id number] Age/Sex: 82 / M Adm Date: 3 Loc: 4N Room: [address] [place] [address] Type: ADM IN Attending Dr: Hiral Interiano MD Copies to: ~ Date of Service: 08/14/2022 Subjective Subjective Narrative: This is a 82-year-old male with a medical history of coronary artery disease s/pPCI, nephrolithiasis, CKD, diabetes mellitus, hypertension, dyslipidemia was presented to the emergency room of [facility] for generalized weakness and low urine output. On evaluation emergency room patient was found to have a life- threatening hyperkalemia with serum potassium 7 mmol/L, acute kidney injurywith elevated serum creatinine 17.8 mg/dL, metabolic acidosis serum bicarbonate 13.5 mmol/L. He was given insulin D50 calcium gluconate in the [place] emergency room. He had a CAT scan abdomen pelvis done which showed obstructive kidney stones in the right UPJ and total atrophy of the left kidney. Case was discussed with the on-call urologist Dr. Olivares and recommended patient needs to be n.p.o. for surgical intervention. He was transferred to [facility] for further care. Patient is history of CKD due to the longstanding DM, HTN and recurrent KELSEA with baseline serum creatinine 1.4 to 1.6 mg/dL. He follows in my office for his CKD care. Patient after arrival at the [facility] hada repeat labs done which showed persistent [...] visible mass Skin: No rashes or bruises PHARMACY INTERN: Awake,Alert, following simple command Musculoskeletal: No joint [...] 100 Mg Tablet) 100 mg PO BID [facility] Stop: 08/18/22 20:59 Last Admin: 08/14/22 08:23 [...] 5,000 Unit/Ml Vial) 5,000 unit SUBCUT Q8HR [facility] Stop: 08/12/23 21:59 Last Admin: 08/14/22 06:05 Dose: Not Given Hydralazine HCl (Hydralazine 20 Mg/Ml Vial) 10 mg IV-PUSH Q4H PRN PRN Reason: Hypertension Stop: 08/11/23 13:40 Last Admin: 08/14/22 05:44 Dose: 10 mg Ceftriaxone Sodium (Rocephin) 1 gm in 50 mls @ 100 mls/hr IV Q24H [facility] Stop: 08/14/22 14:14 Last Admin: 08/13/22 15:07 Dose: 100 mls/hr Sodium Chloride (0.9% Sodium Chloride 1,000 Ml) 1,000 mls @ 0 mls/hr MISCELLANE.Q0M PRN PRN Reason: Dialysis Stop: 08/11/23 14:19 Last Infusion: 08/12/22 12:38 Dose: Infused Insulin Aspart (Insulin Aspart 300 Units/3 Ml Insuln.Pen) 0 units SUBCUT [facility]; Protocol Stop: 08/11/23 16:59 Last Admin: [...] Perez Jr., D.O.08/13/2022 2:25 PM Dictation Location: [place] [address] Any impression(s) listed above is documentation that [...] output Documented By: Alicia Perea MD 08/14/22 8985 Signed By: <Electronically signed by Alicia Perea MD> 08/14/[address] [facility] Work Phone: [phone]) [phone] Progress note Author Cade Alvarez [facility] August 14, 2022 11:21am Note Date/Time August 14, 2022 11:21am [facility] [address] [place] [address] Cardiology Progress Note Signed Patient: Victorino Smyth MR#: [id number] : 1940 Acct:[id number] Age/Sex: 82 / M Adm Date: 3 Loc: 4N Room: [address] [place] [address] Type: ADM IN Attending Dr: Hiral Interiano [...] % (Auto) 79.6 Lymph % (Auto) 7.8 [place] % (Auto) 11.4 Eos % (Auto) 1.0 Baso % (Auto) 0.2 Nucleat RBC Rel Count 0.1 Neut # (Auto) 5.9 Lymph # (Auto) 0.6 L [place] # (Auto) 0.8 Eos # (Auto) 0.1 [...] MPV Neut % (Auto) Lymph % (Auto) [place] % (Auto) Eos % (Auto) Baso % (Auto) Nucleat RBC Rel Count Neut # (Auto) Lymph # (Auto) [place] # (Auto) Eos # (Auto) Baso # [...] make sure that he has follow-up in [facility] within 4 weeks of discharge. (2) CAD (coronary artery disease): Assessment/Problem Details: Stable/quiescent. No ischemic complications with yesterday's urological procedure. Code(s): I25.10 - Atherosclerotic heart disease of [place] coronary artery without angina pectoris Status: Acute Plan: Medical recommendations as above. Plan Thank you very much for this kind consultation and for allowing us to participate in the care of this very pleasant patient Time spent with patient Time Spent With Patient (min): 30 Documented By: Cade Alvarez MD 08/14/22 1118 Signed By: <Electronically signed by Cade Alvarez MD> 08/14/22 1121 [facility] Work Phone: [phone] Progress note Author Hiral Interiano [facility] August 13, 2022 3:09pm Note Date/Time August 13, 2022 3:02pm [facility] [address] [place] [address] Hospitalist Progress Note Signed Patient: Victorino Smyth MR#: [id number] : 1940 Acct:[id number] Age/Sex: 82 / M Adm Date: 3 Loc: 4N Room: 0G5976-5 Type: ADM IN Attending Dr: Hiral Interiano [...] signed by Hiral Interiano MD> 08/13/22 1501 [facility] Work Phone: [phone] Progress note Author Alicia Perea [facility] August 13, 2022 11:29am Note Date/Time August 13, 2022 11:25am [facility] [address] [place] [address] Nephrology Progress Note Signed Patient: Victorino Smyth MR#: [id number] : 1940 Acct:[id number] Age/Sex: 82 / M Adm Date: 3 Loc: Room: [address] [place] [address] Type: ADM IN Attending Dr: Hiral Interiano MD Copies to: ~ Date of Service: 08/13/2022 Subjective Subjective Narrative: This is a 82-year-old male with a medical history of coronary artery disease s/pPCI, nephrolithiasis, CKD, diabetes mellitus, hypertension, dyslipidemia was presented to the emergency room of [facility] for generalized weakness and low urine output. On evaluation emergency room patient was found to have a life- threatening hyperkalemia with serum potassium 7 mmol/L, acute kidney injurywith elevated serum creatinine 17.8 mg/dL, metabolic acidosis serum bicarbonate 13.5 mmol/L. He was given insulin D50 calcium gluconate in the [place] emergency room. He had a CAT scan abdomen pelvis done which showed obstructive kidney stones in the right UPJ and total atrophy of the left kidney. Case was discussed with the on-call urologist Dr. Olivares and recommended patient needs to be n.p.o. for surgical intervention. He was transferred to [facility] for further care. Patient is history of CKD due to the longstanding DM, HTN and recurrent KELSEA with baseline serum creatinine 1.4 to 1.6 mg/dL. He follows in my office for his CKD care. Patient after arrival at the [facility] hada repeat labs done which showed persistent [...] visible mass Skin: No rashes or bruises PHARMACY INTERN: Awake,Alert, following simple command Musculoskeletal: No joint [...] 81 Mg Tablet.Dr) 81 mg PO DAILY [facility] Stop: 08/12/23 08:59 Last Admin: 08/13/22 08:44 Dose: Not Given Atorvastatin Calcium (Atorvastatin 40 Mg Tablet) 40 mg PO HS [facility] Stop: 08/11/23 21:59 Last Admin: 08/12/22 21:07 Dose: 40 mg Dextrose (Dextrose 50% In Water 25 Gm/50 Ml Syringe) 0 gm IV-PUSH PRN PRN PRN Reason: Hypoglycemia Stop: 08/11/23 14:01 Glucose (Dextrose 40% Gel 15 Gm Tube) 0 gm PO PRN PRN PRN Reason: Hypoglycemia Stop: 08/11/23 14:01 Guaifenesin (Guaifenesin 600 Mg Tab.Er.12h) 1,200 mg PO BID [facility] Stop: 08/12/23 20:59 Last Admin: 08/13/22 08:45 [...] 50 mls @ 100 mls/hr IV Q24H [facility] Last Admin: 08/12/22 16:24 Dose: 100 mls/hr Azithromycin (Zithromax) 500 mg in 250 mls @ 250 mls/hr IV Q24H [facility] Last Admin: 08/12/22 15:06 Dose: 250 mls/hr Sodium Chloride (0.9% Sodium Chloride 1,000 Ml) 1,000 mls @ 0 mls/hr MISCELLANE.Q0M PRN PRN Reason: Dialysis Stop: 08/11/23 14:19 Last Infusion: 08/12/22 12:38 Dose: Infused Insulin Aspart (Insulin Aspart 300 Units/3 Ml Insuln.Pen) 0 units SUBCUT [facility]; Protocol Stop: 08/11/23 16:59 Last Admin: 08/13/22 08:44 Dose: Not Given Insulin Glargine (Insulin Glargine 300 Units/3 Ml Insuln.Pen) 5 units SUBCUT DAILY [facility] Stop: 08/13/23 08:59 Last Admin: 08/13/22 08:45 Dose: Not Given Metoprolol Tartrate (Metoprolol Tartrate 50 Mg Tablet) 50 mg PO BID [facility] Stop: 08/11/23 20:59 Last Admin: 08/13/22 08:45 [...] signed by Alicia Perea MD> 08/13/22 1129 [facility] Work Phone: [phone] 442-444002-17-2023 Progress note Author Cade Alvarez [facility] August 13, 2022 9:40am Note Date/Time August 13, 2022 9:35am [facility] [address] [place] [address] Cardiology Progress Note Signed Patient: Victorino Smyth MR#: [id number] : 1940 Acct:[id number] Age/Sex: 82 / M Adm Date: 3 Loc: Room: [address] [place] [address] Type: ADM IN Attending Dr: Hiral Interiano [...] MPV Neut % (Auto) Lymph % (Auto) [place] % (Auto) Eos % (Auto) Baso % (Auto) Nucleat RBC Rel Count Neut # (Auto) Lymph # (Auto) [place] # (Auto) Eos # (Auto) Baso # [...] RNA (PCR) IU/mL N/A HCV RNA PCR marble coper log10 N/A Hepatitis C Interp 08/12/22 08/12/22 08/13/22 19:37 21:06 04:28 Corrected WBC 9.9 Uncorrected WBC Count 9.9 RBC 3.54 L Hgb 11.6 L Hct 34.2 L MCV 96.5 MCH 32.9 MCHC 34.1 RDW 13.7 Plt Count 129 L MPV 8.7 Neut % (Auto) 79.2 Lymph % (Auto) 9.6 [place] % (Auto) 9.8 Eos % (Auto) 0.9 Baso % (Auto) 0.5 Nucleat RBC Rel Count 0.1 Neut # (Auto) 7.8 H Lymph # (Auto) 0.9 L [place] # (Auto) 1.0 H Eos # (Auto) [...] HCV RNA (PCR) IU/mL HCV RNA PCR marble coper log10 Hepatitis C Interp 08/13/22 08/13/22 04:28 05:25 Corrected WBC Uncorrected WBC Count RBC Hgb Hct MCV MCH MCHC RDW Plt Count MPV Neut % (Auto) Lymph % (Auto) [place] % (Auto) Eos % (Auto) Baso % (Auto) Nucleat RBC Rel Count Neut # (Auto) Lymph # (Auto) [place] # (Auto) Eos # (Auto) Baso # [...] HCV RNA (PCR) IU/mL HCV RNA PCR marble coper log10 Hepatitis C Interp A&P - Cardiology [...] Code(s): I25.10 - Atherosclerotic heart disease of [place] coronary artery without angina pectoris Status: Acute Plan: Preoperative recommendations as above. Plan Thank you very much for this kind consultation and for allowing us to participate in the care of this very pleasant patient Time spent with patient Time Spent With Patient (min): 30 Documented By: Cade Alvarez MD 08/13/22 0934 Signed By: <Electronically signed by Cade Alvarez MD> 08/13/[address] [facility] Work Phone: [phone]) 440-584902-16-2023 Progress note Author Hiral Interiano [facility] August 12, 2022 4:04pm Note Date/Time August 12, 2022 4:04pm [facility] [address] [place] [address] Hospitalist Progress Note Signed Patient: Victorino Smyth MR#: [id number] : 1940 Acct:[id number] Age/Sex: 82 / M Adm Date: 3 Loc: Room: [address] [place] [address] Type: ADM IN Attending Dr: Hiral Interiano [...] Insuln.Pen SUBCUT 08/11/23 16:59 Not Given TID.WM.[facility] Protocol Metoprolol Tartrate 50 mg 08/11/22 21:00 [...] kidney disease: Plan: Patient was transferred from [place] ER when found to have acute kidney [...] <Electronically signed by Hiral Interiano MD> 08/12/22 6165 [facility] Work Phone: [phone]) 588-643302-16-2023 Progress note Author Alicia Perea [facility] August 12, 2022 11:29am Note Date/Time August 12, 2022 11:24am [facility] [address] [place] [address] Nephrology Progress Note Signed Patient: Victorino Smyth MR#: [id number] : 1940 Acct:[id number] Age/Sex: 82 / M Adm Date: 3 Loc: Room: [address] [place] [address] Type: ADM IN Attending Dr: Hiral Interiano MD Copies to: ~ Date of Service: 08/12/2022 Subjective Subjective Narrative: This is a 82-year-old male with a medical history of coronary artery disease s/pPCI, nephrolithiasis, CKD, diabetes mellitus, hypertension, dyslipidemia was presented to the emergency room of [facility] for generalized weakness and low urine output. On evaluation emergency room patient was found to have a life- threatening hyperkalemia with serum potassium 7 mmol/L, acute kidney injurywith elevated serum creatinine 17.8 mg/dL, metabolic acidosis serum bicarbonate 13.5 mmol/L. He was given insulin D50 calcium gluconate in the [place] emergency room. He had a CAT scan abdomen pelvis done which showed obstructive kidney stones in the right UPJ and total atrophy of the left kidney. Case was discussed with the on-call urologist Dr. Olivares and recommended patient needs to be n.p.o. for surgical intervention. He was transferred to [facility] for further care. Patient is history of CKD due to the longstanding DM, HTN and recurrent KELSEA with baseline serum creatinine 1.4 to 1.6 mg/dL. He follows in my office for his CKD care. Patient after arrival at the [facility] hada repeat labs done which showed persistent [...] visible mass Skin: No rashes or bruises PHARMACY INTERN: Awake,Alert, following simple command Musculoskeletal: No joint [...] 50 mls @ 100 mls/hr IV Q24H [facility] Last Infusion: 08/11/22 21:49 Dose: Infused Azithromycin (Zithromax) 500 mg in 250 mls @ 250 mls/hr IV Q24H [facility] Last Admin: 08/11/22 16:00 Dose: 250 mls/hr Sodium Chloride (0.9% Sodium Chloride 1,000 Ml) 1,000 mls @ 0 mls/hr MISCELLANE.Q0M PRN PRN Reason: Dialysis Stop: 08/11/23 14:19 Last Admin: 08/12/22 10:24 Dose: 999 mls/hr Insulin Aspart (Insulin Aspart 300 Units/3 Ml Insuln.Pen) 0 units SUBCUT TID[facility]; Protocol Stop: 08/11/23 16:59 Last Admin: 08/12/22 08:07 Dose: Not Given Metoprolol Tartrate (Metoprolol Tartrate 50 Mg Tablet) 50 mg PO BID [facility] Stop: 08/11/23 20:59 Last Admin: 08/12/22 08:20 [...] Rehan Fuentes M.D.08/11/2022 4:10 PM Dictation Location: [place] [address] Any impression(s) listed above is documentation that [...] signed by Alicia Perea MD> 08/12/22 1129 [facility] Work Phone: [phone] Progress note Author Cade Alvarez [facility] August 12, 2022 10:04am Note Date/Time August 12, 2022 10:05am [facility] [address] [place] [address] Cardiology Progress Note Signed Patient: Victorino Smyth MR#: [id number] : 1940 Acct:[id number] Age/Sex: 82 / M Adm Date: 3 Loc: Room: [address] [place] [address] Type: ADM IN Attending Dr: Hiral Interiano [...] % (Auto) N/A Lymph % (Auto) N/A [place] % (Auto) N/A Eos % (Auto) N/A Baso % (Auto) N/A Nucleat RBC Rel Count N/A Neut # (Auto) N/A Lymph # (Auto) N/A [place] # (Auto) N/A Eos # (Auto) N/A [...] MPV Neut % (Auto) Lymph % (Auto) [place] % (Auto) Eos % (Auto) Baso % (Auto) Nucleat RBC Rel Count Neut # (Auto) Lymph # (Auto) [place] # (Auto) Eos # (Auto) Baso # [...] MPV Neut % (Auto) Lymph % (Auto) [place] % (Auto) Eos % (Auto) Baso % (Auto) Nucleat RBC Rel Count Neut # (Auto) Lymph # (Auto) [place] # (Auto) Eos # (Auto) Baso # [...] % (Auto) 88.0 Lymph % (Auto) 4.4 [place] % (Auto) 7.4 Eos % (Auto) 0.0 Baso % (Auto) 0.2 Nucleat RBC Rel Count 0.0 Neut # (Auto) 11.8 H Lymph # (Auto) 0.6 L [place] # (Auto) 1.0 H Eos # (Auto) [...] MPV Neut % (Auto) Lymph % (Auto) [place] % (Auto) Eos % (Auto) Baso % (Auto) Nucleat RBC Rel Count Neut # (Auto) Lymph # (Auto) [place] # (Auto) Eos # (Auto) Baso # [...] Code(s): I25.10 - Atherosclerotic heart disease of [place] coronary artery without angina pectoris Status: Acute Plan: Preoperative recommendations as above. Plan Thank you very much for this kind consultation and for allowing us to participate in the care of this very pleasant patient Time spent with patient Time Spent With Patient (min): 30 Documented By: Cade Alvarez MD 08/12/22 0959 Signed By: <Electronically signed by Cade Alvarez MD> 08/12/22 1009 [facility] Work Phone: [phone] Consult note Author Alicia Perea [facility] August 11, 2022 5:46pm Note Date/Time August 11, 2022 4:00pm [facility] [address] [place] [address] Nephrology Consult Note Signed with Nancy Patient: Victorino Smyth MR#: [id number] : 1940 Acct:[id number] Age/Sex: 82 / M Adm Date: 3 Loc: Room: [address] [place] [address] Type: ADM IN Attending Dr: Hiral Interiano [...] to the emergency room of [facility] for generalized weakness and low urine output. On evaluation emergency room patient was found to have a life- threatening hyperkalemia with serum potassium 7 mmol/L, acute kidney injurywith elevated serum creatinine 17.8 mg/dL, metabolic acidosis serum bicarbonate 13.5 mmol/L. He was given insulin D50 calcium gluconate in the [place] emergency room. He had a CAT scan abdomen pelvis done which showed obstructive kidney stones in the right UPJ and total atrophy of the left kidney. Case was discussed with the on-call urologist Dr. Olivares and recommended patient needs to be n.p.o. for surgical intervention. He was transferred to [facility] for further care. Patient is history of CKD due to the longstanding DM, HTN and recurrent KELSEA with baseline serum creatinine 1.4 to 1.6 mg/dL. He follows in my office for his CKD care. Patient after arrival at the [facility] hada repeat labs done which showed persistent [...] 81 Mg Tablet.Dr) 81 mg PO DAILY [facility] Stop: 08/12/23 08:59 Atorvastatin Calcium (Atorvastatin 40 Mg Tablet) 40 mg PO HS [facility] Stop: 08/11/23 21:59 Dextrose (Dextrose 50% In [...] 50 mls @ 100 mls/hr IV Q24H [facility] Azithromycin (Zithromax) 500 mg in 250 mls @ 250 mls/hr IV Q24H [facility] Sodium Chloride (0.9% Sodium Chloride 1,000 Ml) 1,000 mls @ 0 mls/hr MISCELLANE .Q0M PRN PRN Reason: Dialysis Stop: 08/11/23 14:19 Insulin Aspart (Insulin Aspart 300 Units/3 Ml Insuln.Pen) 0 units SUBCUT TID[facility]; Protocol Stop: 08/11/23 16:59 Metoprolol Tartrate (Metoprolol Tartrate 50 Mg Tablet) 50 mg PO BID [facility] Stop: 08/11/23 20:59 Nitroglycerin (Nitroglycerin 0.4 Mg [...] visible mass Skin: No rashes or bruises PHARMACY INTERN: Awake,Alert, following simple command Musculoskeletal: No joint [...] Patient consented for dialysis. I consulted the removable prosthodontist for hemodialysis catheter placement which was placed [...] team. Documented By: Alicia Perea MD 08/11/22 3224 Signed By: <Electronically signed by Alicia Perea MD> 08/11/[address] [facility] Work Phone: [phone] Consult note Author Cade Alvarez [facility] August 11, 2022 4:47pm Note Date/Time August 11, 2022 4:36pm [facility] [address] [place] [address] Cardiology Consult Note Signed Patient: Victorino Smyth MR#: [id number] : 1940 Acct:[id number] Age/Sex: 82 / M Adm Date: 3 Loc: Room: [address] [place] [address] Type: ADM IN Attending Dr: Hiral Interiano [...] syndrome in 2017. Patient initially presented to [place] emergency department complaining of shortness of breath [...] # (Auto) N/A Lymph # (Auto) N/A [place] # (Auto) N/A Eos # (Auto) N/A [...] nonspecific abnormality, ST segment, and/or T wave [place], pacemaker, normal Normal tracing: no change compared [...] Code(s): I25.10 - Atherosclerotic heart disease of [place] coronary artery without angina pectoris Plan Thank you very much for this kind consultation and for allowing us to participate in the care of this very pleasant patient Documented By: Cade Alvarez MD 08/11/22 1634 Signed By: <Electronically signed by Cade Alvarez MD> 08/11/[address] [facility] Work Phone: [phone]) [phone] Consult note Author Ni Olivares [facility] August 11, 2022 3:24pm Note Date/Time August 11, 2022 3:24pm [facility] [address] [place] [address] Urology Consult Note Signed Patient: Victorino Smyth MR#: [id number] : 1940 Acct:[id number] Age/Sex: 82 / M Adm Date: 3 Loc: Room: [address] [place] [address] Type: ADM IN Attending Dr: Hiral Interiano MD Copies to: MD Ni James MD Mazhar Rahman, MD~ History of Present Illness Consult Details Consult Date: 08/11/2022 Requesting Provider: Hiral Interiano MD HPI: Mr. Smyth is an 82-year-old man transferred from the [facility]. The patient presented with [...] % (Auto) N/A, Lymph % (Auto) N/A, [place] % (Auto) N/A, Eos % (Auto) N/A, Baso % (Auto) N/A, Nucleat RBC Rel Count N/A, Neut # (Auto) N/A, Lymph # (Auto) N/A, [place] # (Auto) N/A, Eos # (Auto) N/A, [...] than that noted at the [facility] at a current level of [...] indicated. Documented By: Ni Olivares MD 08/11/22 1517 Signed By: <Electronically signed by MD Ni Olivares> 08/11/22 7035 [facility] Work Phone: 1([phone]) [phone] History and physical note Author Hiral Interiano [facility] August 11, 2022 2:02pm Note Date/Time August 11, 2022 2:02pm [facility] [address] [place] [address] Hospitalist H&P Signed Patient: Victorino Smyth MR#: [id number] : 1940 Acct:[id number] Age/Sex: 82 / M Adm Date: 02/15/2 3 Loc: Room: 3D9430-0 Type: ADM IN Attending Dr: Hiral Interiano [...] Patient has been transferred from [facility] ER for acute kidney injury [...] repeated labs available in the record from [facility]. Chest x-ray read as mild bilateral lower [...] a similar feeling when he had an [place] in 2017 and prior to that in [...] negative unless noted below or in HPI [facility] Medical History (Updated 08/11/22 @ 13:59 [...] type 2. He has been transferred from [place] ER for obstructive uropathy with worsening renal failure and hyperkalemia. I was informed the patient was given cocktail for hyperkalemia with no repeated labs available in the record. Patient arrival to floor complaining of midsternal discomfort and mentioned having similar feeling when he had an [place]. Does appear tachypneic likely from metabolic acidosis. [...] signed by Hiral Interiano MD> 08/11/[address] [facility] Work Phone: 1([phone]) [phone] [facility] Evaluation note* Encounter Date Diagnosis Assessment Notes Treatment Notes Treatment Clinical Notes May, Diabetes mellitus wi th chronic kidney disease (ICD-10 - E11.22) He has [id number] ndent type 2 diabetes and currently takes [...] have advised him to adequately hydrate himself. [employer] Other 08-11-2022 NotePROCEDURE: XR KNEE LT 4V or > COMPARISON: None. HISTORY: Pain of left knee joint FINDINGS: BONES:No acute fracture or dislocation. Minimal degenerative changes. SOFT TISSUES:Negative. No visible soft tissue swelling. EFFUSION:None visible. OTHER: Vascular calcification IMPRESSION: No acute abnormality Electronically authenticated by: TYLER MONSIVAIS Date: 2022-02-04 07:23[facility]05-31-2022 Evaluation note* Encounter Date Diagnosis Assessment Notes Treatment Notes Treatment Clinical Notes October, Diabetes mellitus wi th chronic kidney disease (ICD-10 - E11.22) He has rmk-wtecghe-lxtrn dent type 2 diabetes and currently takes [...] have advised him to adequately hydrate himself. [facility] Other 05-02-2022 Hospital Discharge instructions Follow Up Care 10/26/2021 10:06:54 With:KADE OLIVEROS, Milton Brewer, URL Address: [address] [place] [address]- When: Unknown [facility] 05-02-2022 Hospital Discharge instructions Patient Education [...] 06/13/2006 Document Revised: 03/02/2019 Document Reviewed: 05/13/2017 [employer] Patient Education 2020 [employer]. 10/26/2021 09:44:44 Urinary Frequency, Adult Urinary Frequency, [...] to keep your urine pale yellow. ?Take ykta-yzn-dmngcqh or prescription medicines. ?Eat foods that are high in fiber, such as beans, whole grains, and fresh fruits and vegetables. ?Limit foods that are high in fat and processed sugars, such as fried or sweet foods. General instructions Take bamb-oof-lelpawp and prescription medicines only as told by [...] the muscles that help control urination. Take bisl-chz-aavybvs and prescription medicines only as told by your health care provider. Contact a health care provider if your symptoms do not improve or get worse. This information is not intended to replace advice given to you by your health care provider. Make sure you discuss any questions you have with your health care provider. Document Released: 04/09/2010 Document Revised: 12/21/2018 Document Reviewed: 12/21/2018 [employer] Patient Education 2020 [employer]. 10/26/2021 09:44:41 Kidney Stones, Wwrx-sz-Nqux Kidney Stones Kidney stones are rock-like masses [...] Follow these instructions at home: Medicines Take nmps-kbh-wwusmov and prescription medicines only as told by [...] 11/29/2008 Document Revised: 10/30/2019 Document Reviewed: 10/30/2019 [employer] Patient Education 2019 [employer]. Follow Up Care 02/23/2021 14:09:11 With:KADE OLIVEROS, Milton Brewer, SUEL Address: [facility] [address], [place] [address]- When:10/26/2022 [facility] 11-30-2021 Evaluation note* Encounter Date Diagnosis Assessment Notes Treatment Notes Treatment Clinical Notes Apr, Diabetes mellitus wi th chronic kidney disease (ICD-10 - E11.22) He has gsr-deuakof-ebzhy dent type 2 diabetes and currently takes [...] have advised him to adequately hydrate himself. [facility] Other Evaluation + Plan note Future Appointments Appointment Date:10/29/2022 08:45:00 AM Scheduled Provider:Milton BRAUN MD Location:[facility] Appointment Type:URO Office Visit [facility] evaluation + Plan note Future Appointments Appointment Date:09/14/2022 07:30:00 AM Scheduled Provider: Location:[facility] Appointment Type:Surgical PAT FT Appointment Date:10/07/2022 12:00:00 PM Scheduled Provider: Location:[facility] Appointment Type:Surgery FT Appointment Date:10/29/2022 08:45:00 AM Scheduled Provider:Milton BRAUN MD Location:[facility] Appointment Type:URO Office Visit [facility] Evaluation + Plan note Future Appointments Appointment Date:11/18/2022 10:30:00 AM Scheduled Provider: Location:[facility] Appointment Type:Surgical PAT FT Appointment Date:12/02/2022 11:45:00 AM Scheduled Provider: Location:[facility] Appointment Type:Surgery FT [facility] evaluation + Plan note Future Appointments Appointment Date:06/12/2024 11:00:00 AM Scheduled Provider:Ni OLIVARES MD Location:[facility] Appointment Type:URO Office Visit Future Scheduled Tests Laboratory* Total Protein 24 Hour Urine 02/14/23 [facility] Evaluation note* Diagnosis Onset Date Resolution Status Acute kidney injury superimp osed on chronic kidney disease acute Acute kidney insufficiency a cute CAD (coronary artery disease) acute CKD (chronic kidney disease) stage 3, GFR 30-59 ml/min acute Elevated PSA acute Hydronephrosis with ureteral calculus acute Hyperkalemia acute [id number] acute Left renal atrophy acute Metabolic acidosis acute Obstructive nephropathy acut e Preoperative cardiovascular examination acute Right ureteral stone acute 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 Diabetes chronic [facility] Work Phone: Evaluation noteNo assessment information available [facility] Work Phone: Hisfuzl general Narrative - Reported* Type Description Date Medical History DIABETES MELLITUS Medical History CORONARY ARTERY DISEASE Medical History MORBID OSESITY Surgical History HERNEA LOWER RIGHT ABDOMINAL Surgical History HEART ATTACK WITH STENT PLACEME NT IN THE LAD Surgical History KIDNEY STENTS X 2 Surgical History PROSTRATE BIO PAD Surgical History KIDNEY STENTS X2 Surgical History KIDNEY STONE REMOVAL Hospitalization History SEE ABOVE [facility] Other Hismuqw general Narrative - Reported* Type Description Date [...] KIDNEY STONE REMOVAL Hospitalization History SEE ABOVE [facility] Other History general Narrative - Reported* Type [...] KIDNEY STONE REMOVAL Hospitalization History SEE ABOVE [facility] Other Hisgzai general Narrative - Reported* Type Description Date [...] History KELSEA, HYPERKALEMIA, METAB OLIC ACIDOSIS 08/11/2022 [facility] Other Hospital course Narrative No data available for this section [facility] Hospital Discharge instructions Additional Instructions Follow-up with your Primary Search Engine Optimization Analyst in 4 weeks. Avoid NSAIDs for pain control. Call [facility] Scheduling on Tuesday at [phone] to arrange a follow up CT scan regarding lung nodule in 4 weeks. Maintain occlussive dressing to HD catheter removal site for 48 hours - return to the Emergency Room for oozing or drainage from catheter exit site, noticeable swelling or itching around neck, shortness of breath, [facility] Work Phone: Progress note No data available for this section [facility] Chief Complaint and Reason for Visit Chief Complaint ACUTE RENAL FAILURE Reason for Visit Acute kidney injury superimposed on chronic kidney disease Acute kidney insufficiency CAD (coronary artery disease) CKD (chronic kidney disease) stage 3, GFR 30-59 ml/min Elevated PSA Hydronephrosis with ureteral calculus Hyperkalemia [id number] Left renal atrophy Metabolic acidosis Obstructive nephropathy [...] Kiser MD Other Provider Active Jen Tamayo [facility]- Other Provider Active Aaliyah Mitchell MD [...] section and content) DATE CREATED AUTHOR 10/03/2022 [facility] DATE CREATED AUTHOR AUTHOR'S ORGANIZ ATION 12/07/2022 Coreen bran DATE CREATED AUTHOR AUTHOR'S ORGANIZ ATION 01/27/2023 [facility] DATE CREATED AUTHOR AUTHOR'S ORGANIZ ATION 07/05/2023 [facility] DATE CREATED AUTHOR AUTHOR'S ORGANIZ ATION 07/07/2023 [facility] Goals (unrecognized section and content) [...] BE BASED ON THE PRIMARY CLINICAL RECORDS. [employer] provides no warranty or guarantee of the accuracy or completeness of information in this document.
--- NOTE | 2023-07-29 15:05 | ECG_ITS ---
The [facility] Test Date: 2023-07-29 Pat Name: GLADYS SMYTH Department: Room: - Gender: Male Bulk Fluids Handler: : 1940 Requested By: TRAY ALFARO Order Number: [id number] Reading MD: TRAY ALFARO Measurements Intervals [place] Rate: 82 P: 6 TN: 170 QRS: 27 QRSD: 88 T: 51 QT: 352 QTc: 391 Interpretive Statements 1100 Sinus rhythm Electronically Signed On 07-31-2023 5:55:01 EST by TRAY ALFARO
--- NOTE | 2023-07-29 15:14 | XR_ITS ---
The [address] [address] Patient Name: GLADYS SMYTH MRN: [id number] date: 1940 Sex: M Assigned Patient Location: ER Current Patient Location: ER Accession/Order Number: [id number] Exam Date: 07/29/2023 15:28 Report Date: 07/29/2023 15:46 At the request of: SAI SADLER Procedure: XR chest 1V EXAMINATION: XR chest 1V 07/29/2023 12:41 PM PST HISTORY: short of breath TECHNIQUE: Single frontal view of the chest acquired. COMPARISONS: Chest x-ray 08/11/2022 and 01/20/2021. FINDINGS: Lines/tubes/other: None. Heart and mediastinum: Mildly enlarged cardiac silhouette, similar. Bones: No acute osseous abnormality. Lungs: Mild patchy opacification at the right base. Benign calcified granuloma in the left lung, similar. No pulmonary edema. Pleura: There is no significant pleural effusion or pneumothorax. Other: None. XR/XR chest 1V IMPRESSION: Mild right basilar opacification. Differential includes atelectasis, aspiration, and pneumonia. Electronically authenticated by: DONNA MCKAY Date: 07/29/2023 15:46
[2023-07-29] MEDS: 0.9 % SODIUM CHLORIDE 1,000 ML 500 ML IV (15:16)
[2023-07-29 15:24] LABS: Adenovirus NOT DETECTED (NOT DETECTE); Bordetella parapertussis NOT DETECTED (NOT DETECTE); Coronavirus 229E NOT DETECTED (NOT DETECTE); Coronavirus HKU1 NOT DETECTED (NOT DETECTE); Coronavirus NL63 NOT DETECTED (NOT DETECTE); Coronavirus OC43 NOT DETECTED (NOT DETECTE); Human Metapneumovirus NOT DETECTED (NOT DETECTE); Human Rhinovirus/Enterovirus NOT DETECTED (NOT DETECTE); Influenza A NOT DETECTED (NOT DETECTE); Influenza B NOT DETECTED (NOT DETECTE); Mycoplasma pneumoniae NOT DETECTED (NOT DETECTE); Parainfluenza Virus 1 NOT DETECTED (NOT DETECTE); Parainfluenza Virus 2 NOT DETECTED (NOT DETECTE); Parainfluenza Virus 3 NOT DETECTED (NOT DETECTE); Parainfluenza Virus 4 NOT DETECTED (NOT DETECTE); Respiratory Syncytial Virus NOT DETECTED (NOT DETECTE)
[2023-07-29 15:26] LABS: Hematocrit 32.5 % (42.0-54.0); Hemoglobin 10.4 g/dL (14.0-18.0); Mean Corpuscular Hemoglobin 32.8 pg (25.9-34.0); Mean Corpuscular Volume 102.5 fL (80.0-94.0); Mean Platelet Volume 11.1 fL (9.5-13.5); Platelet Count 181 10^3/uL (150-450); Red Blood Count 3.17 10^6/uL (4.70-6.10); White Blood Count 14.9 10^3/uL (4.0-11.0)
[2023-07-29 15:41] LABS: INR 1.02; Partial Thromboplastin Time 29.6 sec (22.3-36.2); Prothrombin Time 10.8 sec (9.0-11.6)
[2023-07-29 15:45] LABS: Alanine Aminotransferase 45 U/L (16-63); Albumin Globulin Ratio 0.5; Albumin Level 2.1 g/dL (3.4-5.0); Alkaline Phosphatase 68 U/L (46-116); Anion Gap 14.5; Aspartate Amino Transferase 37 U/L (15-37); BUN Creatinine Ratio 12.1; Bilirubin Total 0.8 mg/dL (0.2-1.0); Calcium 8.3 mg/dL (8.5-10.1); Carbon Dioxide 22.8 mmol/L (21.0-32.0); Chloride 104 mmol/L (98-107); Estimated GFR (African America 26 (>=60); Estimated GFR (Non-African Ame 21 (>=60); Globulin 3.9 g/dL; Glucose 184 mg/dL (74-106); Potassium 4.3 mmol/L (3.5-5.1); Sodium 137 mmol/L (136-145); Troponin I High Sensitivity 8.8 pg/mL (4.0-76.1)
[2023-07-29 15:46] LABS: Lymphocytes Absolute Manual 0.29 10^3/uL (1.20-3.80); Segmented Neut Absolute Manual 13.41 10^3/uL (1.4-6.5)
[2023-07-29 15:47] LABS: Eosinophils Absolute Manual 0.14 10^3/uL (0.00-0.70); Monocytes Absolute Manual 1.04 10^3/uL (0.30-0.80)
[2023-07-29 16:38] LABS: SARS-CoV-2 DETECTED (NOT DETECTE)
--- NOTE | 2023-07-29 16:54 | ED.WEAKNESS1 ---
HPI - Weakness General Chief complaint: Weakness Stated complaint: BLOOD PRESSURE CHECK Time Seen by Provider: 07/29/23 15:04 Source: patient Mode of arrival: walk-in Limitations: no limitations History of Present Illness HPI Narrative: 82-year-old male presents here with a chief complaint of low blood pressure and weakness. Patient was told to come in for evaluation by his home health nurse. Patient was recently discharged home from the hospital six days ago after an acute appendicitis. Surgeons were unable to move his appendix but did performed extensive flushing of the abdomen and a drain tube which was removed three days ago. Patient states over the past couple of days she's had increased cough and congestion with phlegm. His is positive with Covid home as well. Today had Documented low blood pressure at home. Patient states she's had fevers on and off the past 2-3 days as well. Patient's blood pressure 96/54 arrival here to [place]. Denies any chest pain. He does have diminished breath sounds with harsh nonproductive cough. Related Data Home Medications Medication Instructions Recorded Confirmed albuterol sulfate 90 mcg/actuation 1 inh inhalation Q6H PRN shortness 07/19/23 07/19/23 aerosol inhaler of breath or wheezing amlodipine 10 mg tablet 10 mg PO DAILY 07/19/23 07/19/23 aspirin 81 mg capsule 81 mg PO DAILY 07/19/23 07/19/23 atorvastatin 80 mg tablet 80 mg PO QPM 07/19/23 07/20/23 xqbggnxgyne-pcnwfeutwu-ugt-calcium-155herb 1 tab PO BID 07/19/23 07/20/23 375 mg-150 mg-125 mg tablet isosorbide mononitrate 60 mg 120 mg PO DAILY 07/19/23 07/19/23 tablet,extended release 24 hr ketoconazole 2 % topical cream 1 applic topical DAILY 07/19/23 07/19/23 levothyroxine 50 mcg tablet 50 mcg PO DAILY 07/19/23 07/19/23 liothyronine 5 mcg tablet 5 mcg PO DAILY 07/19/23 07/19/23 lisinopril 20 mg tablet 20 mg PO DAILY 07/19/23 07/19/23 metoprolol tartrate 50 mg tablet 50 mg PO Q12H 07/19/23 07/19/23 nitroglycerin 0.4 mg sublingual 0.4 mg sublingual Q5M PRN chest 07/19/23 07/19/23 tablet pain pioglitazone 15 mg tablet 15 mg PO DAILY 07/19/23 07/19/23 ranolazine 500 mg tablet,extended 500 mg PO Q12H 07/19/23 07/19/23 release,12 hr tiotropium bromide 2.5 2 inh inhalation Q24H 07/19/23 07/19/23 mcg/actuation mist for inhalation (Spiriva Respimat) sitagliptin phosphate 100 mg 100 mg PO DAILY 07/20/23 07/20/23 tablet (Januvia) Previous Rx's Medication Instructions Recorded cefdinir 300 mg capsule 300 mg PO BID 5 days #10 caps 07/23/23 clindamycin HCl 300 mg capsule 300 mg PO Q6H 5 days #20 caps 07/23/23 Allergies Allergy/AdvReac Type Severity Reaction Status Date / Time ciprofloxacin [From Cipro] Allergy Intermediate Verified 07/20/23 08:12 Penicillins Allergy Intermediate Verified 07/20/23 08:12 Review of Systems ROS Narrative All Systems are negative except as noted/marked. PFSH PFSH Medical History (Updated 07/29/23 @ 16:53 by Tesha Dowell) Acute appendicitis ?K35.80 - Unspecified acute appendicitis (ICD-10) Thyroid condition ?E07.9 - Disorder of thyroid, unspecified (ICD-10) Diabetes ?E11.9 - Type 2 diabetes mellitus without complications (ICD-10) Hypertension ?I10 - Essential (primary) hypertension (ICD-10) Surgical History (Updated 07/19/23 @ 16:19 by Delaney Lanier) H/O hernia repair ?Z98.890 - Other specified postprocedural states (ICD-10) ?Z87.19 - Personal history of other diseases of the digestive system (ICD-10) H/O heart artery stent ?Z95.5 - Presence of coronary angioplasty implant and graft (ICD-10) Social History Smoking status: Former smoker Highest level of school completed/degree received: some college, no degree Exam Narrative Exam Narrative: Nurses note and vital signs reviewed and patient is not hypoxic. General: The patient appears well and in no apparent distress. Patient is resting comfortably on cart. Skin: Warm, dry, no pallor noted. There is no rash noted. Head: Normocephalic, atraumatic Eye: Normal conjunctiva, no drainage, EOMI. PERRL Ears, Nose, Mouth, and Throat: oral mucosa is moist. Nares patent. Mouth without vesicles. Ear canals patent. Tm's without Erythema Cardiovascular: Regular Rate and Rhythm Respiratory: Diminished with expiratory wheezing, nonproductive cough Patient is in no distress, no accessory muscle use, Back: non-tender, no CVA tenderness bilaterally to percussion. abdomen: Dressing removed no acute drainage or discharge, no tenderness to palpation, status post appendicitis infection Musculoskeletal: The patient has no evidence of calf tenderness, no pitting edema, symmetrical pulses noted bilaterally Neurological: A&O x4, normal speech Psychiatric: Cooperative Constitutional Vital Signs, click to edit/add: Last Vital Signs Temp 98.2 F 07/29/23 14:40 Pulse 85 07/29/23 14:40 Resp 18 07/29/23 14:40 BP 96/50 07/29/23 14:40 Pulse Ox 96 07/29/23 14:40 O2 Del Method Room Air 07/29/23 14:40 Course Vital Signs Vital signs: Vital Signs Temperature 98.2 F 07/29/23 14:40 Pulse Rate 85 07/29/23 14:40 Respiratory Rate 18 07/29/23 14:40 Blood Pressure 96/50 07/29/23 14:40 Pulse Oximetry 96 07/29/23 14:40 Oxygen Delivery Method Room Air 07/29/23 14:40 Temperature 98.2 F 07/29/23 14:40 Pulse Rate 85 07/29/23 14:40 Respiratory Rate 18 07/29/23 14:40 Blood Pressure 96/50 07/29/23 14:40 Pulse Oximetry 96 07/29/23 14:40 Oxygen Delivery Method Room Air 07/29/23 14:40 MDM - Weakness MDM Narrative Medical decision making narrative: 82-year-old male presents here with a chief complaint of low blood pressure and weakness. Patient was told to come in for evaluation by his home health nurse. Patient was recently discharged home from the hospital six days ago after an acute appendicitis. Surgeons were unable to move his appendix but did performed extensive flushing of the abdomen and a drain tube which was removed three days ago. Patient states over the past couple of days she's had increased cough and congestion with phlegm. His is positive with Covid home as well. Today had Documented low blood pressure at home. Patient states she's had fevers on and off the past 2-3 days as well. Patient's blood pressure 96/54 arrival here to [place]. Denies any chest pain. He does have diminished breath sounds with harsh nonproductive cough. Upon arrival to the emergency room IV was established blood work was drawn patient was seen evaluated by myself. Patient was initially short of breath upon arrival. Pulse ox was 94-96 percent. He does have a harsh nonproductive cough. Patient tells me he was recently discharged after an acute appendicitis event and also had a drain removed from his abdomen from when they flushed out his abdomen and were unable to remove his appendix.Chest x-ray shows a questionable start of a pneumonia. He does have an elevated white cell count of fourteen thousand is positive for Covid. Due to patient's recent hospitalization and low blood pressure with increased weakness patient will be admitted to the hospital. I reached out spoke to patient's primary care physician Dr. Danielson who also agrees for admission. Patient be admitted for Covid and possible hospital-acquired pneumonia. Differential Diagnosis Differential diagnosis: Likely sepsis, dehydration and other (pneumonia, covid) Medical Records Attestation: I reviewed the patient's medical records. Lab Data Attestation: I reviewed the patient's lab results. Labs: Lab Results 07/29/23 Range/Units 15:15 WBC 14.9 H (4.0-11.0) 10^3/uL RBC 3.17 L (4.70-6.10) 10^6/uL Hgb 10.4 L (14.0-18.0) g/dL Hct 32.5 L (42.0-54.0) % MCV 102.5 H (80.0-94.0) fL MCH 32.8 (25.9-34.0) pg MCHC 32.0 (29.9-35.2) g/dL RDW 14.0 (11.0-15.0) % Plt Count 181 (150-450) 10^3/uL MPV 11.1 (9.5-13.5) fL Seg Neuts % (Manual) 90.0 Lymphocytes % (Manual) 2.0 L (20.5-60.0) % Monocytes % (Manual) 7.0 (1.7-12.0) % Eosinophils % (Manual) 1.0 (0.9-7.0) % Basophils % (Manual) 0.0 L (0.2-2.0) % Neutrophils # (Manual) 13.41 H (1.4-6.5) 10^3/uL Lymphocytes # (Manual) 0.29 L (1.20-3.80) 10^3/uL Monocytes # (Manual) 1.04 H (0.30-0.80) 10^3/uL Eosinophils # (Manual) 0.14 (0.00-0.70) 10^3/uL Basophils # (Manual) 0.00 (0.00-0.10) 10^3/uL PT 10.8 (9.0-11.6) sec INR 1.02 APTT 29.6 (22.3-36.2) sec Sodium 137 (136-145) mmol/L Potassium 4.3 (3.5-5.1) mmol/L Chloride 104 (98-107) mmol/L Carbon Dioxide 22.8 (21.0-32.0) mmol/L Anion Gap 14.5 BUN 35.0 H (7.0-18.0) mg/dL Creatinine 2.89 H (0.70-1.30) mg/dL Est GFR ( Amer) 26 L (>=60) Est GFR (Non-Af Amer) 21 L (>=60) BUN/Creatinine Ratio 12.1 Glucose 184 H (74-106) mg/dL Lactate 1.0 (0.4-2.0) mmol/L Calcium 8.3 L (8.5-10.1) mg/dL Total Bilirubin 0.8 (0.2-1.0) mg/dL AST 37 (15-37) U/L ALT 45 (16-63) U/L Alkaline Phosphatase 68 (46-116) U/L Troponin I High Sens 8.8 (4.0-76.1) pg/mL NT-Pro-B Natriuret Pep 443.0 (<=1800.0) pg/mL Total Protein 6.0 L (6.4-8.2) g/dL Albumin 2.1 L (3.4-5.0) g/dL Globulin 3.9 g/dL Albumin/Globulin Ratio 0.5 Adenovirus (PCR) Not detected (NOT DETECTE) C. pneumoniae DNA (PCR) Not detected (NOT DETECTE) Coronavirus Type OC43 Not detected (NOT DETECTE) Coronavirus Type HKU1 Not detected (NOT DETECTE) Coronavirus Type 229E Not detected (NOT DETECTE) Coronavirus Type NL63 Not detected (NOT DETECTE) Human Metapneumovir PCR Not detected (NOT DETECTE) M. pneumoniae (PCR) Not detected (NOT DETECTE) Parainfluenza PCR Not detected (NOT DETECTE) Parainfluenza 2 (PCR) Not detected (NOT DETECTE) Parainfluenza 3 (PCR) Not detected (NOT DETECTE) Parainfluenza 4 (PCR) Not detected (NOT DETECTE) RSV (RT-PCR) Not detected (NOT DETECTE) Entero/Rhino (PCR) Not detected (NOT DETECTE) SARS-CoV-2 (PCR) Detected A (NOT DETECTE) Bordetella pertussis (PCR) Not detected (NOT DETECTE) B parapertussis DNA PCR Not detected (NOT DETECTE) Influenza Type A (PCR) Not detected (NOT DETECTE) Influenza Type B (PCR) Not detected (NOT DETECTE) Imaging Data Chest x-ray: Attestation: I have reviewed the pertinent imaging results. Radiologist's impression: ITS Impressions Chest X-Ray 07/29/23 15:14 IMPRESSION: Mild right basilar opacification. Differential includes atelectasis, aspiration, and pneumonia. Electronically authenticated by: DONNA MCKAY Date: 07/29/2023 15:46 ECG Data Attestation: ?I have reviewed the pertinent ECG results. Pacemaker model: 1446 normal sinus rhythm with a rate of 82 bpm, NE interval 170, qrs 88ms Discharge Plan Discharge Chief Complaint: Weakness Clinical Impression: COVID, Pneumonia Patient Disposition: Admitted As Inpatient Time of Disposition Decision: 16:52 Condition: Fair
[2023-07-29] MEDS: AZITHROMYCIN 500 MG in 0.9 % SODIUM CHLORIDE 250 ML 250 MG IV (17:08)
[2023-07-29 17:49] LABS: Troponin I High Sensitivity 7.1 pg/mL (4.0-76.1)
[2023-07-29] MEDS: IMIPENEM/CILASTATIN SODIUM 1,000 MG in 0.9 % SODIUM CHLORIDE 100 ML 100 MG IV (18:11)
--- OUTSIDE RECORDS SUMMARY | 2023-07-29 19:37 | XMS_ITS | CCD ---
Author Name Unknown Address [address] [place] [address] Organization [facility] Care Team Providers Care Ingredient Mixer Name Role Phone Tray Alfaro Primary Care Physician Alicia Perea Unavailable MD Tray Alfaro Primary Care Provider MD Hiral Interiano Admit Provider MD Hiral Interiano Attending Provider ALISHA [facility] Other Provider Unavailable DO Lizzy Lin [...] Unavailable MD Tray Alfaro Primary Care Provider [phone] MD Ni Olivares Attending Provider [phone] Ni OLIVARES P Referring Unavailable COOKRidgeNi P [...] Eruption of skin (disorder) [facility] (13 sources) Penicillin; Translations: [penicillin] Drug Allergy Eruption of skin (disorder) [employer] Other (6 sources) Ciprofloxacin Drug Allergy Unknown [facility] Other (7 sources) Penicillins; Translations: [Penicillins] Allergy to substance 06-14-20 14 [facility] (1 source) Ciprofloxacin Drug Allergy 09-14-20 20 [facility] (3 sources) levothyroxine; Translations: [levothyroxine] Drug Allergy Swelling of oral cavity structure (finding) [facility] (3 sources) liothyronine; Translations: [liothyronine] Drug Allergy Swelling of oral cavity structure (finding) [facility] (1 source) No Known Medication Allergies; Translations: [No Known Medication Allergies] Propensity to adverse reactions (disorder) [facility] (1 source) Ciprofloxacin Drug Allergy 08-13-19 [facility] Repository Medications Current Medications Medication Drug Class(es) Dates Sig (Normalized) Sig (Original) acetaminophen 325 mg / HYDROcodone bitartrate 5 mg oral tablet (1 source) Opioid Agonist Start: 10-07-2022 End: 10-09-2022 acetaminophen-hyd rocodone 325 mg-5 mg oral tablet 1 tab(s), Oral, q4hr Pain for 2 day(s), 7 tab(s), Refill(s) 0, [id number], 175, cm, 09/15/22 5:20:00 EDT, Height/Length Dosing, [...] Status: Ordered take 1 capsule by mo [facility] every twenty-four hours Vitamin D3 125 [...] # 2 cap(s), Refills(s) 0, Pharmacy: [id number], 177, cm, 11/18/22 13:54:00 EDT, Height/Length Dosing, [...] activity, # 30 tab(s), Refills(s) 2, [facility], 174, cm, 08/18/20 12:16:00 EST, Height/Length [...] Date: 04/11/19 Status: Ordered 60 actuat tiotropium 0.99607 mg/actuat inhalation spray (11 sources) Anticholinergic Start: [...] Coronary arteriosclerosis; Translations: [Atherosclerotic heart disease of [place] coronary artery without angina pectoris] Onset: 3 [...] Onset: 10-14-2022 Episodic Other aftercare (1 source) 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; Translations: [SNF CURRENT USE OF ASPIRIN] Onset: 08-13-2022 Episodic Other aftercare (1 source) Other [facility] (current) drug therapy; Translations: [OTH SNF CURRENT DRUG THERAPY] Onset: 08-13-2022 Episodic Other [...] Range Facility [facility] 07-05-2023 Lab Reports [id number]#1.00TIFF [facility] Lab Reports [id number]#1.00TIFF [facility] Blood Urea Nitrogenon 2023 Urea nitrogen [Mass/Vol] 31 mg/dL High 7-25 [facility] Comment on above: Performed By: #### L YTES, CA, URIC, PTH, BUN, CREAT ####[facility] [address] [place] [address] [facility] Calciumon 07-02-2023 Calcium [Mass/Vol] 8.8 mg/dL Normal 8.6-10.3 [facility] Comment on above: Performed By: #### L YTES, CA, URIC, PTH, BUN, CREAT ####[facility] [address] [place] [address] [facility] Calcium [Mass/volume] in Ser um or PlasmaOrdered By: Ni Olivares on 07-02-2023 Calcium [Mass/Vol] 8.8 mg/dL 8.6-10.3 [facility] Carbon dioxide, total [Moles /volume] in Serum or PlasmaOrdered By: Ni Olivares on 07-02-2023 CO2 [Moles/Vol] 24.0 mmol/L 21.0-31.0 [facility] Chloride [Moles/volume] in S paty or PlasmaOrdered By: Ni Olivares on 07-02-2023 Chloride [Moles/Vol] 107 mmol/L 98-107 [facility] Creatinineon 07-02-2023 Creatinine [Mass/Vol] 2.05 mg/dL High 0.70-1.30 [facility] Comment on above: Performed By: #### L YTES, CA, URIC, PTH, BUN, CREAT ####[place] [address] [place] [address] [place] GFR/1.73 sq M.predicted MDRD (S/P/Bld) [Vol rate/Area] 32.151 mL/min/{1.73_m2} Normal [facility] Comment on above: Performed By: #### L YTES, CA, URIC, PTH, BUN, CREAT ####[place] [place] [address] [facility] Creatinine [Mass/volume] in Serum or PlasmaOrdered By: Ni Olivares on 07-02-2023 Creatinine [Mass/Vol] 2.05 mg/dL 0.70-1.30 [facility] Electrolyteson 07-02-2023 Anion gap [Moles/Vol] 12.0 mmol/L Normal 6.0-15.0 [facility] Comment on above: Performed By: #### L YTES, CA, URIC, PTH, BUN, CREAT ####[address] [address] [facility] Chloride [Moles/Vol] 107 mmol/L Normal 98-107 [facility] Comment on above: Performed By: #### L YTES, CA, URIC, PTH, BUN, CREAT ####[place] [place] [address] [place] CO2 [Moles/Vol] 24.0 mmol/L Normal 21.0-31.0 [facility] Comment on above: Performed By: #### L YTES, CA, URIC, PTH, BUN, CREAT ####[address] [address] [facility] Potassium [Moles/Vol] 5.0 mmol/L Normal 3.5-5.1 [facility] Comment on above: Performed By: #### L YTES, CA, URIC, PTH, BUN, CREAT ####[facility] [place] [address] [facility] Sodium [Moles/Vol] 138 mmol/L Normal 136-145 [facility] Comment on above: Performed By: #### L YTES, CA, URIC, PTH, BUN, CREAT ####[place] [address] [place] [address] [facility] No Panel InformationOrdered By: Ni Olivares on 07-02-2023 Estimated GFR (CKD-EPI) 32.151 mL/Min [facility] Creatinine Clearance (Chem N/A [facility] Parathyrin.intact [Mass/volu me] in Serum or PlasmaOrdered By: Ni Olivares on 07-02-2023 Parathyrin.intact [Mass/Vol] 55.4 pg/mL [facility] Parathyroid Hormone Intacton 07-02-2023 Parathyroid Hormone Intact 55.4 pg/mL Normal [facility] Comment on above: Result Comment: PERF ORMED BY: [facility] [address] [place] [id number] PATHOLOGIST BARTENDER DIANDRA LACY M.D. Performed By: #### L YTES, CA, URIC, PTH, BUN, CREAT ####[place] [address] [place] [address] [facility] Potassium [Moles/volume] in Serum or PlasmaOrdered By: Ni Olivares on 07-02-2023 Potassium [Moles/Vol] 5.0 mmol/L 3.5-5.1 [facility] Serum or plasma anion gap de terminationOrdered By: Ni Olivares on 07-02-2023 Anion gap [Moles/Vol] 12.0 mmol/L 6.0-15.0 [facility] Sodium [Moles/volume] in Ser um or PlasmaOrdered By: Ni Olivares on 07-02-2023 Sodium [Moles/Vol] 138 mmol/L 136-145 [facility] Urate [Mass/volume] in Serum or PlasmaOrdered By: Ni Olivares on 07-02-2023 Urate [Mass/Vol] 8.2 mg/dL 4.4-7.6 [facility] Urea nitrogen [Mass/volume] in Serum or PlasmaOrdered By: Ni Olivares on 07-02-2023 Urea nitrogen [Mass/Vol] 31 mg/dL 7-25 [facility] Uric Acidon 07-02-2023 Urate [Mass/Vol] 8.2 mg/dL High 4.4-7.6 [facility] Comment on above: Result Comment: PERF ORMED BY: [facility] [address] [place] [id number] PATHOLOGIST BARTENDER DIANDRA LACY M.D. Performed By: #### L YTES, CA, URIC, PTH, BUN, CREAT ####[place] [address] [place] [address] [facility] Lab Reportson 07-01-2023 Lab Reports [id number]#1.00TIFF [facility] PSA Total (Not a Screen)on 0 06-28-2023 PSA Total (Not a Screen) 4.730 ng/mL High 0.000-4.00 0 [facility] Comment on above: Result Comment: Seri al tumor marker results determined by assays using different manufacturers or methods may not be comparable. [facility] Laboratory sample patternmaker and method: KeyMe DXI, CHEMILUMINESCENT IMMUNOASSAY. PERFORMED BY: [facility] [address] [place] [address] PATHOLOGIST BARTENDER DIANDRA LACY M.D. Performed By: #### P SATOTAL ####[place] [address] [place] [address] [facility] Prostate specific Ag [Mass/v olume] in Serum or PlasmaOrdered By: Ni Olivares on 06-28-2023 Prostate specific Ag [Mass/Vol] 4.730 ng/mL 0.000-4.00 0 [facility] Comment on above: Serial tumor marker results determined by assays using different manufacturers or methods may not be comparable.[facility] Laboratory sample patternmaker and method:KeyMe DXI, CHEMILUMINESCENT IMMUNOASSAY. RAD - Ultrasound Reporton RAD - Ultrasound Report [id number]#1.00TIFF [facility] Lab Reportson 06-16-2023 Lab Reports [id number]#1.00TIFF [facility] Lab Reports [id number]#1.00TIFF [facility] Lab Reports [id number]#1.00TIFF [facility] Screenson 06-16-2023 Screens [id number]#1.00TIFF [facility] US renal BIon 06-16-2023 US renal BI [place] [address] Ultrasound Report Signed Patient: Victorino Smyth MR#: [id number] : 1940 Acct:[id number] Age/Sex: 82 / M ADM Date: 06/16/23 Loc: Room: Type: [facility] Attending Dr: Ni Olivares MD Ordering [...] Rehan Fuentes M.D.06/16/2023 4:02 PM Dictation Location: [place] [address] Tech: Sue Chiu Transcribed By: [facility] 06/16/23 1602 Dictated By: Rehan Fuentes DO 06/16/23 1557 Signed By: 06/16/23 1602 [facility] Ambulatory Visit Summaryon 1 08-15-2022 Ambulatory Visit Summary VICTORINO SMYTH :1940 Visit Date:06/14/2023 Ambulatory Visit Instructions Your Diagnosis Kidney stone BPH with urinary obstruction Prostate cancer Tests Performed Urnls Dip Stick Auto w/o Microscopy POC 16904 US Renal -- Results Pending -- Please [...] CARLOS OLIVEROS, BHUPINDER Merritt When: Where: [address] [place] [address]- Medications What How Much When Instructions Unchanged [...] or concerns Unchanged (more content not included)... [facility] Formson 06-14-2023 Forms [id number]#1.00TIFF [facility] Patient Educationon 06-14-20 23 Patient [...] ? 8 oz (237 mL) of milk, gotshst-ksnwdxpgbrzq-natuy milk, and calcium-fortifiedfruit juice. Calcium-fortified means that [...] Spinach (cooked), rhubarb, beets, sweet potatoes, and Libyan chard. ? Peanuts. ? Potato chips, pitcairn islander fries, and baked potatoes with skin on. ? Nuts and nut products. ? Chocolate. ? If you regularly take a diuretic medicine, make sure to eat at least 1 or 2 servings of fruits or vegetables that are high in potassium each day. These include: ? Avocado. ? Banana. ? Success, prune, carrot, or tomato juice. ? Baked [...] fish oil, or vitamin B6. ? Take lypj-chp-rutdyjr and prescription medicines only as told by your health care provider. These include supplements. What foods sh (more content not included)... [facility] Urology Office/Clinic Noteon 06-14-2023 Urology Office/Clinic [...] with voice recognition artificial intelligence software, specifically [employer] and or [employer]. Substitutions may have occurred due to the [...] Information CARLOS OLIVEROS, Ni P, URL [address] [place] [address]- Additional Instructions: 1 year Patient Education [...] Hydronephrosis with uretera (more content not included)... [facility] Comment on above: Result Comment: Elec tronically Signed By: Ni OLIVARES MD\.br\Date and Time Signed: 06/14/23 09:55 EST\.br\Electronically Co-Signed By: Dahiana Joseph\.br\Date and Time Co-Signed: 06/14/23 09:48 EST\.br\Electronically Co-Signed By: Dahiana Joseph\.br\Date and Time Co-Signed: 06/14/23 09:50 EST Office Visiton 01-26-2023 Follow-up visit [id number] Ruben Smyth 1940 M Date Provider Department Center 01/26/2023 JENNIFER SMITH FABIOLA Mcneill [facility] Family History Problem Relation Age of Onset No Known Problems Mother No Known Problems Father Family Status - Relation Status Age at Mother Father Level of Service:64231 [place] OFFICE/OUTPATIENT ESTABLISHED LOW MDM 20-29 MIN [facility] Consent for Procedure/Surger yon 12-21-2022 Consent for Procedure/Surgery [id number]#1.00CD:127 [facility] IntraOperative Documentson 0 12-21-2022 IntraOperative Documents [id number]#1.00CD:127 [facility] Consent for Treatmenton 11-26 Consent for Treatment [id number]#1.00CD:127 [facility] Inpatient Patient Summaryon 12-20-2022 Inpatient Patient Summary [place] [id number] Clinical Summary Person Information Name: VICTORINO SMYTH Age: 82 Years : 1940 Sex: Male PCP: Tray Alfaro MD Marital Status: Race: White Ethnicity: Non- or Language: Ethiopian Visit Id: Visit Reason: RIGHT KIDNEY STONE Speciality: Acuity: Enc Type: Outpatient Med Service: Surgery Arrival: 12/20/2022 15:00:15 Discharge: Dispo Type: Address: [address] [place] [phone] Provider Notes: Diagnosis: Problems Active Flank pain [...] Follow up: With: Address: When: Ni OLIVARES [address] [place] [address], [address], [place] [address] [facility] (1) Within 6 months Comments: Call [...] Cystoscopy with Stent Removal Discharge Instructions (Custom) [facility] Main OR Intraoperative Recor don 12-20-2022 Main OR Intraoperative Record IntraOp Document Type FTURO Summary Primary Physician: Ni OLIVARES MD Finalized Date/Time: 12/20/22 16:29:12 Pt. Name: VICTORINO SMYTH Bryan RuedaB./Sex: 1940 Male Med Rec #: [id number] Physician: Ni OLIVARES MD Financial #: [id number] Pt. Type: O Room/Bed: / Admit/Disch: 12/20/22 [...] Shabnam Garcia Role Performed Surgeon - Primary Adult Health Clinical Nurse Specialist - Primary Scrub - Primary Time [...] 16:24 Maggie Menendez RN 12/20/22 16:29 [facility] Main OR Preoperative Recordo n 12-20-2022 Main OR Preoperative Record Holding Area Document Type FTURO Summary Primary Physician: Ni OLIVARES MD Finalized Date/Time: 12/20/22 15:39:13 Pt. Name: HAJA VICTORINODANYELLE Dubon/Sex: 1940 Male Med Rec #: [id number] Physician: Ni OLIVARES MD Financial #: [id number] Pt. Type: O Room/Bed: / Admit/Disch: 12/20/22 [...] By: Janay Gonzales RN 12/20/22 15:39 [facility] Operative Reporton Operative Report Patient: SHERYL [...] considering a repeat 24-hour urine/metabolic work-up. [facility] Comment on above: Result Comment: Elec tronically Signed By: Ni OLIVARES MD\.br\Date and Time Signed: 12/20/22 16:29 EDT Outpatient Surgery Discharge Instructionon 12-20-2022 Outpatient Surgery Discharge Instruction [place] [id number] Patient Discharge Instructions PERSON INFORMATION Name: VICTORINO [...] up: With: Address: When: Ni OLIVARES [address], [address], [facility] [address] [place] [id number] [facility] (1) Within 6 months Comments: Call [...] to serve you. Thank you for choosing [facility] Postoperative Documentson Postoperative Documents [id number]#1.00CD:127 [facility] Calculus Analysison 12-09-19 23 Color (Stone) Olsen Invalid Interpretation Code [facility] Comment on above: Performed By: #### 2 [id number] #### [facility] [address] [place] [address] Composition Comment Invalid Interpretation Code [facility] Comment on above: Result Comment: Perc entage (Represents the % composition) Performed By: #### 2 [id number] #### [facility] [address] [place] [address] Disclaimer: Comment Invalid Interpretation Code [facility] Comment on above: Result Comment: This test was developed and its performance characteristics determined by [facility]. It has not been cleared or approved by the Food and Drug Administration. Performed at: [address] [id number] PhD Jarvis Bauman Performed By: #### 2 [id number] #### [facility] [address] [place] [address] Laboratory comment Dangelo (Report) Comment Invalid Interpretation Code [facility] Comment on above: Result Comment: Padmini gutierrez questions regarding Calculi Analysis contact [facility] at: [phone]. Performed By: #### 2 [id number] #### [facility] [address] [place] [address] Please Note: Comment Invalid Interpretation Code [facility] Comment on above: Result Comment: Calc salazar report will follow via computer, mail or construction job cost estimator delivery. Performed By: #### 2 [id number] #### [facility] [address] [place] [address] Size (Stone) [Entitic vol] 3x5 Invalid Interpretation Code [facility] Comment on above: Result Comment: Mult iple pieces received. Dimensions of the largest piece reported. Performed By: #### 2 [id number] #### [facility] [address] [place] [address] Specimen source subject Nom Comment Invalid Interpretation Code [facility] Comment on above: Result Comment: Righ t Ureter Performed By: #### 2 [id number] #### [facility] [address] [place] [address] Stone Photo Comment Invalid Interpretation Code [facility] Comment on above: Result Comment: Phot ograph will follow under a separate cover Performed By: #### 2 [id number] #### [facility] [address] [place] [address] Urate (Stone) [Mass fraction] 100 % Invalid Interpretation Code [facility] Comment on above: Performed By: #### 2 [id number] #### [facility] [address] [place] [address] Weight (Stone) 131 mg Invalid Interpretation Code [facility] Comment on above: Performed By: #### 2 [id number] #### [facility] [address] [place] [address] Pre-Certification Formon Pre-Certification Form [id number]#1.00CD:127 [facility] IntraOperative Documentson 0 12-06-2022 IntraOperative Documents [id number]#1.00CD:127 [facility] Consent for Anesthesiaon Consent for Anesthesia [id number]#1.00CD:127 [facility] Discharge Instructionson Discharge Instructions [id number]#1.00CD:127 [facility] IntraOperative Documentson 0 12-03-2022 IntraOperative Documents [id number]#1.00CD:127 [facility] IntraOperative Documents [id number]#1.00CD:127 [facility] Main OR Intraoperative Recor don 12-03-2022 Main OR Intraoperative Record [facility] Preoperative Documentson Preoperative Documents [id number]#1.00CD:127 [facility] Preoperative Documents [id number]#1.00CD:127 [facility] Preoperative Documents [id number]#1.00CD:127 [facility] Progress Note-Physicianon Progress Note-Physician Patient: [...] meets criteria ( To home ). [facility] Comment on above: Result Comment: Elec [...] Problems Acute kidney failure / SNOMED CT 75863022 / Confirmed BPH with urinary obstruction / SNOMED CT 2165626104 / Confirmed Chronic obstructive pulmonary disease (COPD) / SNOMED CT 58369898 / Confirmed Coronary artery disease / SNOMED CT 61091896 / Confirmed Anticoagulated / SNOMED CT 851679080 / Confirmed Erectile dysfunction / SNOMED CT 9238125762 / Confirmed Flank pain / SNOMED CT 758073776 / Confirmed H/O: hypothyroidism / SNOMED CT 978900361 / Confirmed Hydronephrosis / SNOMED CT 70834566 / Confirmed Hydronephrosis with ureteral calculus / SNOMED CT 0325292994 / Confirmed Hyperlipidemia / SNOMED CT 00923347 / Confirmed Hyperplastic colon polyp / SNOMED CT 0918500049 / Confirmed Hypertension / SNOMED CT 0126785079 / Confirmed Kidney stone / SNOMED CT 056244785 / Confirmed Prostate cancer / SNOMED CT 3844875063 / Confirmed Myocardial infarct / SNOMED CT 13172570 / Confirmed BPH associated with nocturia / SNOMED CT 3730071944 / Confirmed Occult blood in stools / SNOMED CT 28440114 / Confirmed Postprandial diarrhea / SNOMED CT 18523205 / Confirmed Elevated PSA / SNOMED CT 7876854996 / Confirmed Urinary retention / SNOMED CT 901786206 / Confirmed Rheumatoid arthritis / SNOMED CT 843522736 / Confirmed DM (diabetes mellitus), type 2 / SNOMED CT 467315897 / Confirmed Ureteral stone / SNOMED CT 04819565 / Confirmed Histories Procedure history: ESWL of kidney (52397560) on 10/07/2022 at 82 Years. Transurethral resection of prostate (062329610) on 08/01/2019 at 79 Years. Biopsy of prostate (233337286) on 07/04/2019 at 78 Years. cystoscopy, bilateral, ureteroscopy, laser lithotripsy on 06/27/2019 at 78 Years. TRIGGER FINGER RELEASE. Neuroplasty and/or transposition; median nerve at carpal tunnel (91809). Percutaneous transluminal coronary angioplasty; single major coronary artery or branch (41900). Patient has a coronary artery stent (Peri2) [...] adequate air exchange. Cardiovascular: Regular rhythm. Plan [place] [employer] Anesthesiologists (ASA) physical status classification: Class III. Anesthetic Preoperative Plan: Anesthesia General. [facility] Comment on above: Result Comment: Elec tronically Signed By: Reji Hidalgo DO, Ty Khanna\.br\Date and Time Signed: 12/03/22 08:21 EDT Capillary Glucose POCon Glucose [Mass/Vol] 82 mg/dL Normal 55-99 [facility] Comment on above: Result Comment: Jackelin quach RN/ Performed By: #### 2 [id number] #### [facility] [address] [place] [address] Consent for Procedure/Surger yon 12-02-2022 Consent for Procedure/Surgery [id number]#1.00CD:127 [facility] Consent for Treatmenton Consent for Treatment [id number]#1.00CD:127 [facility] Discharge Instructionson Discharge Instructions VICTORINO SMYTH [...] When: Comments: Call for followup appointment Where: [facility] [employer] [address] [address]- Business (1) Medications What How Much When Instructions Next Dose New doxycycline (doxycycline hyclate 100 mg Cap) 1 Capsules By Mouth 2 times a day Duration: 5 Days Pickup at [email or web address] #75862 Unchanged albuterol (Ventolin Diskus) 2 Puffs Inhalation [...] needed for Itching Pharmacy Information [id number]: [address], [place] [id number] [phone] Allergies ciprofloxacin (Rash) levothyroxine (Mouth swelling) liothyronine (Mouth (more content not included)... [facility] Comment on above: Result Comment: Elec tronically Signed By: Shae BRITO, Jazmin Eli\.ruba\Date and Time Signed: 12/02/22 12:25 EDT H&P Updateon 12-02-2022 H&P Update [id number]#1.00CD:127 [facility] Inpatient Patient Summaryon 12-02-2022 Inpatient Patient Summary [address] [address] [facility] Clinical Discharge Instructions PERSON INFORMATION Name: VICTORINO SMYTH PHYSICIANS Admitting Physician: Ni OLIVARES MD Attending Physician: Ni OLIVARES MD PCP: Tray Alfaro MD Discharge Diagnosis: Comment: PATIENT EDUCATION INFORMATION Instructions: Eyny-Jrme-xf Utereroscopy,Lithotripsy, Stone Extraction, Stent Placement (Custom) Medication Leaflets: Follow up: With: Address: When: Ni OLIVARES [address] [place] [address], [address], [place] [phone] [facility] (1) Comments: Call for followup appointment MEDICATION LIST New Medications [id number], [address], [place] [id number], [phone] doxycycline (doxycycline hyclate 100 mg Cap) 1 [...] apply to chin, and forhead Comment: [facility] Main OR PACU I Recordon Main OR PACU I Record PACU Phase I Docum ent Type FT Summary Primary Physician: Ni OLIVARES MD Finalized Date/Time: 12/02/22 12:58:10 Pt. Name: VICTORINO SMYTH Bryan Chatman./Sex: 1940 Male Med Rec #: [id number] Physician: Ni OLIVARES MD Financial #: [id number] Pt. Type: A Room/Bed: [facility] Admit/Disch: 12/02/22 09:31:57 - Institution: Case [...] By: Piedad Blanco RN 12/02/22 12:58 [facility] Main OR PACU II Recordon Main OR PACU II Record PACU Phase II Doc ument Type FT Summary Primary Physician: Ni OLIVARES MD Finalized Date/Time: 12/02/22 13:45:57 Pt. Name: SMYTHVICTORINO./Sex: 1940 Male Med Rec #: [id number] Physician: Ni OLIVARES MD Financial #: [id number] Pt. Type: A Room/Bed: [facility] Admit/Disch: 12/02/22 09:31:57 - Institution: Case [...] By: Jazmin Kaufman RN 12/02/22 13:45 Normal [facility] Main OR Preoperative Recordo n 12-02-2022 Main OR Preoperative Record PreOp Document Type FT Summary Primary Physician: Ni OLIVARES MD Finalized Date/Time: 12/02/22 11:00:33 Pt. Name: SMYTHVICTORINO./Sex: 1940 Male Med Rec #: [id number] Physician: Ni OLIVARES MD Financial #: [id number] Pt. Type: Room/Bed: [place] [address] Admit/Disch: 12/02/22 09:31:57 - Institution: Case Times [...] By: Soraya Borrego RN 12/02/22 11:00 [facility] Monitor Recordon 12-02-2022 Monitor Record [id number]:127 [facility] Monitor Record [id number]#1.00CD:127 Normal [facility] Operative Reporton 3 Operative Report Patient: [...] jelly placed per urethra. A well-lubricated 22 Romanian is urethroscope with 30 degree lens then [...] backloaded over the wire and a 4.7 Romanian Bard inlay double-J stent is passed into [...] ml. Complications: None. Anesthesia type: General. [facility] Comment on above: Result Comment: Elec tronically Signed By: Ni OLIVARES MD\.br\Date and Time Signed: 12/02/22 11:51 EDT Outpatient Surgery Discharge Instructionon 12-02-2022 Outpatient Surgery Discharge Instruction [place] [id number] Patient Discharge Instructions PERSON INFORMATION Name: VICTORINO [...] Follow up: With: Address: When: Ni OLIVARES [address] [place] [address], [address], [place] [phone] [facility] (1) Comments: Call for followup appointment Pharmacy Information: You may receive a survey from [employer] asking you to rate your care experience. Your feedback is important and will help us understand what we do well and how we can improve the quality of care we provide to you, your loved ones and our community. It?s an honor to serve you. Thank you for choosing [facility] HERE ARE THE MEDICATION CHANGES THAT OCCURRED DURING YOUR HOSPITAL STAY New Medications [id number], [address], [place] [id number], [phone] doxycycline (doxycycline hyclate 100 mg Cap) 1 [...] forhead PATIENT EDUCATION INFORMATION Instructions: [facility] [place], [place] Dr. Ni Omalley Post-operative Instructions for [...] swelling, kidn (more content not included)... [facility] Patient Education - Texton 0 12-02-2022 [...] MDI an (more content not included)... [facility] XR Abdomen 1 Viewon 12-03-19 23 [...] in mGy = na DAP = na [facility] Consultation Noteon 11-29-19 Consultation Note [id number]#1.00CD:127 [facility] Outside Recordson 11-24-2022 Outside Records [id number]#[id number]:127 [facility] C Urineon 11-20-2022 Bacteria identified [...] Locations R1: This test was performed at: [facility], [address] [place] [address], [address] , [place], [facility] Comment on above: Performed By: #### 1 [id number], [id number] ####[facility] [address] [place] [address] Albuminon 11-18-2022 Albumin [Mass/Vol] 4.0 g/dL Normal 3.3-5.0 [facility] Comment on above: Performed By: #### 2 841323, 2729042, 0977832, 88301535, 888326546, 3360617, 1916688, 4265479, 1450688 ####[facility] [address] [place] [address] Auto Diffon 11-18-2022 Basophils/100 WBC (Bld) 0.2 % Normal 0.0-2.0 [facility] Comment on above: Order Comment: Order Added by Discern Expert. Performed By: #### 2 [id number] #### [facility] [address] [place] [address] Basophils/Leukocytes Auto (Bld) [Pure # fraction] 0.0 E9/L Normal 0.0-0.2 [facility] Comment on above: Order Comment: Order Added by Discern Expert. Performed By: #### 2 [id number] #### [facility] [address] [place] [address] Eosinophils/100 WBC (Bld) 0.1 % Normal 0.0-8.0 [facility] Comment on above: Order Comment: Order Added by Discern Expert. Performed By: #### 2 [id number] #### [facility] [address] [place] [address] Eosinophils/Leukocytes Auto (Bld) [Pure # fraction] 0.0 E9/L Normal 0.0-0.5 [facility] Comment on above: Order Comment: Order Added by Discern Expert. Performed By: #### 2 [id number] #### [facility] [address] [place] [address] Lymphocytes/100 WBC (Bld) 8.6 % Low 14.0-50.0 [facility] Comment on above: Order Comment: Order Added by Discern Expert. Performed By: #### 2 [id number] #### [facility] [address] [place] [address] Lymphocytes/Leukocytes Auto (Bld) [Pure # fraction] 0.9 E9/L Low 1.0-4.0 [facility] Comment on above: Order Comment: Order Added by Discern Expert. Performed By: #### 2 [id number] #### [facility] [address] [place] [address] Monocytes/100 WBC (Bld) 7.1 % Normal 4.0-14.0 [facility] Comment on above: Order Comment: Order Added by Discern Expert. Performed By: #### 2 [id number] #### [facility] [address] [place] [address] Monocytes/Leukocytes Auto (Bld) [Pure # fraction] 0.7 E9/L Normal 0.2-1.0 [facility] Comment on above: Order Comment: Order Added by Discern Expert. Performed By: #### 2 [id number] #### [facility] [address] [place] [address] Neutrophils/100 WBC (Bld) 84.0 % High 36.0-75.0 [facility] Comment on above: Order Comment: Order Added by Discern Expert. Performed By: #### 2 [id number] #### [facility] [address] [place] [address] Neutrophils/Leukocytes Auto (Bld) [Pure # fraction] 8.7 E9/L High 2.0-7.5 [facility] Comment on above: Order Comment: Order Added by Discern Expert. Performed By: #### 2 [id number] #### [facility] [address] [place] [address] BMP 11-18-2022 Anion gap [Moles/Vol] 12 mmol/L Normal 6-16 [facility] Comment on above: Performed By: #### 2 [id number] #### [facility] [address] [place] [address] Calcium [Mass/Vol] 9.3 mg/dL Normal 8.9-11.1 [facility] Comment on above: Performed By: #### 2 [id number] #### [facility] [address] [place] [address] Chloride [Moles/Vol] 109 mmol/L Normal 101-111 [facility] Comment on above: Performed By: #### 2 [id number] #### [facility] [address] [place] [address] CO2 [Moles/Vol] 24 mmol/L Normal 21-31 [facility] Comment on above: Performed By: #### 2 [id number] #### [facility] [address] [place] [address] Creatinine [Mass/Vol] 2.5 mg/dL High 0.5-1.3 [facility] Comment on above: Performed By: #### 2 [id number] #### [facility] [address] [place] [address] Glucose [Mass/Vol] 130 mg/dL Normal 55-199 [facility] Comment on above: Result Comment: If t his glucose result represents a fasting glucose, interpretation should refer to the following reference range: 55-99 mg/dL Performed By: #### 2 [id number] #### [facility] [address] [place] [address] Potassium [Moles/Vol] 4.8 mmol/L Normal 3.5-5.3 [facility] Comment on above: Performed By: #### 2 [id number] #### [facility] [address] [place] [address] Sodium [Moles/Vol] 140 mmol/L Normal 135-145 [facility] Comment on above: Performed By: #### 2 [id number] #### [facility] [address] [place] [address] Urea nitrogen [Mass/Vol] 38 mg/dL High 5-21 [facility] Comment on above: Performed By: #### 2 [id number] #### [facility] [address] [place] [address] Urea nitrogen/Creatinine [Mass ratio] 15 No Units Normal 10-20 [facility] Comment on above: Performed By: #### 2 [id number] #### [facility] [address] [place] [address] CBC w/ Auto Diffon 05-25-202 3 Erythrocyte distribution width (RBC) [Ratio] 13.5 % Normal 10.9-14.2 [facility] Comment on above: Performed By: #### 2 [id number] #### [facility] [address] [place] [address] Hematocrit (Bld) [Volume fraction] 34.9 % Low 37.7-49.0 [facility] Comment on above: Performed By: #### 2 [id number] #### [facility] [address] [place] [address] Hemoglobin (Bld) [Mass/Vol] 11.7 g/dL Low 13.5-17.5 [facility] Comment on above: Performed By: #### 2 [id number] #### [facility] [address] [place] [address] MCH (RBC) [Entitic mass] 32.1 pg Normal 27.0-34.0 [facility] Comment on above: Performed By: #### 2 [id number] #### [facility] [address] [place] [address] MCHC (RBC) [Mass/Vol] 33.6 g/dL Normal 31.4-36.0 [facility] Comment on above: Performed By: #### 2 [id number] #### [facility] [address] [place] [address] MCV (RBC) [Entitic vol] 95.4 fL Normal 80.0-100.0 [facility] Comment on above: Performed By: #### 2 [id number] #### [facility] [address] [place] [address] Platelet mean volume (Bld) [Entitic vol] 8.7 fL Normal 6.4-10.8 [facility] Comment on above: Performed By: #### 2 [id number] #### [facility] [address] [place] [address] Platelets (Bld) [#/Vol] 214.0 E9/L Normal 150.0-500. 0 [facility] Comment on above: Performed By: #### 2 [id number] #### [facility] [address] [place] [address] RBC (Bld) [#/Vol] 3.7 E12/L Low 4.3-5.9 [facility] Comment on above: Performed By: #### 2 48155974 #### [facility] [address] [place] [address] WBC corrected for nucl RBC Auto (Bld) [#/Vol] 10.4 E9/L Normal 4.0-11.0 [facility] Comment on above: Performed By: #### 2 [id number] #### [facility] [address] [place] [address] Consent for Treatmenton 10-26 Consent for Treatment [id number]#[id number]:127 Normal [facility] Consent for Treatment [id number]#1.00CD:127 Normal [facility] Ferritinon 11-18-2022 Ferritin [Mass/Vol] 192 ng/mL Normal 24-336 [facility] Comment on above: Result Comment: NORM ALS MEN <30 YRS 16-132 ng/mL MEN >30 YRS 8-338 ng/mL WOMEN (PREMEN) 6-104 ng/mL WOMEN (POSTMEN) 12-210 ng/mL Performed By: #### 2 575361, 5889573, 7960123, 23401860, 548150983, 6627837, 8511021, 7847617, 4691424 ####[facility] [address] [place] [address] Folateon 11-18-2022 Folate [Mass/Vol] ng/mL Normal >=6.7 [facility] Comment on above: Performed By: #### 2 790497, 4154224, 3783021, 78191437, 303173767, 2607998, 8265463, 7508422, 8806560 ####[facility] [address] [place] [address] Ironon 11-18-2022 Iron [Mass/Vol] 102 microgram/dL Normal 35-[address] [facility] Comment on above: Performed By: #### 2 715688, 5188814, 0228836, 56804795, 052461977, 2014187, 9618493, 4244780, 7361020 ####[facility] [address] [place] [address] PT & PTTon 11-18-2022 aPTT Coag (PPP) [Time] 27.1 second(s) Normal 25.1-36.5 [facility] Comment on above: Result Comment: Para [...] the same coagulation reagent and instrumentation as [facility]. Currently there are no coagulation studies available worldwide for children to 14 days, and no normal ranges. Heparin therapeutic range (represented by Anti-Factor Xa activity of 0.2 - 0.4 U/mL) corresponds to PTT of 56.6 - 109.0 sec. Performed By: #### 2 [id number] #### [facility] [address] [place] [address] INR Coag (PPP) [Relative time] 1.1 {INR} Invalid Interpretation Code [facility] Comment on above: Result Comment: INR results are specifically intended to assess patients stabilized on long-term Anticoagulation therapy suggested INR?s ?Less Intensive Anticoagulation? 2.0 ? 3.0 Conventional Range 3.0 ? 4.5 Performed By: #### 2 [id number] #### [facility] [address] [place] [address] PT Coag (PPP) [Time] 11.9 second(s) Normal 9.4-12.5 [facility] Comment on above: Result Comment: 15 [...] the same coagulation reagent and instrumentation as [facility]. Currently there are no coagulation studies available worldwide for children to 14 days, and no normal ranges. Performed By: #### 2 03927027 #### [facility] [address] [place] [address] Phosphoruson 11-18-2022 Phosphate [Mass/Vol] 4.4 mg/dL Normal 1.9-4.6 [facility] Comment on above: Performed By: #### 2 372092, 2853425, 4526433, 86253143, 619469895, 6787375, 1620683, 5538041, 1705737 ####[facility] [address] [place] [address] Physician Orderon 11-18-2022 Physician Order [id number]#[id number]:127 [facility] TIBC Calculatedon 11-18-2022 Iron binding capacity [Mass/Vol] 292 microgram/dL Normal 250-400 [facility] Comment on above: Performed By: #### 2 675065, 1792818, 4632684, 86835594, 394142682, 5260151, 1146339, 9380644, 3901774 ####[facility] [address] [place] [address] Transferrin [Mass/Vol] 208 mg/dL Normal 200-370 [facility] Comment on above: Performed By: #### 2 662128, 7869761, 8602952, 94980101, 058845823, 9634258, 1084432, 0750563, 5078779 ####[facility] [address] [place] [address] U Protein/Creat Ratioon 10-26 Albumin Elph (U) [Mass fraction] 25.2 mg/dL Invalid Interpretation Code [facility] Comment on above: Result Comment: The reference range and other method performance specifications have not been established for this test; results should be integrated into the clinical context for interpretation. Performed By: #### 1 [id number] #### [facility] [address] [place] [address] Creatinine (U) [Mass/Vol] 80.6 mg/dL Invalid Interpretation Code [facility] Comment on above: Result Comment: The reference range and other method performance specifications have not been established for this test; results should be integrated into the clinical context for interpretation. Performed By: #### 1 [id number] #### [facility] [address] [place] [address] U Prot/Creat Ratio 312.70 mg/gm Cr High .00-200.00 F [facility] [place] Comment on above: Performed By: #### 1 [id number] #### [facility] [address] [place] [address] UA With Cult Reflexon 2022 Bilirubin Ql (U) Negative Normal Negative [facility] Comment on above: Performed By: #### 1 6312568, 3545470 #### [facility] [address] [place] [address] Clarity (U) CLEAR Normal Clear [facility] Comment on above: Performed By: #### 1 2762458, 9912878 #### [facility] [address] [place] [address] Color (U) YELLOW Normal Yellow [facility] Comment on above: Performed By: #### 1 2893565, 9792763 #### [facility] [address] [place] [address] Epithelial cells.squamous LM.HPF (Urine sed) [#/Area] 0-2 Normal 0-2 [facility] Comment on above: Performed By: #### 1 7069337, 5876419 #### [facility] [address] [place] [address] Glucose Test strip (U) [Mass/Vol] Negative Normal Negative [facility] Comment on above: Performed By: #### 1 1298545, 2432298 #### [facility] [address] [place] [address] Hemoglobin Ql (U) 3+ Abnormal Negative [facility] Comment on above: Performed By: #### 1 3381970, 5104158 #### [facility] [address] [place] [address] Ketones (U) [Mass/Vol] Negative Normal Negative [facility] Comment on above: Performed By: #### 1 2989790, 1721274 #### [facility] [address] [place] [address] [place].plasma/[place] .RBC (Bld) [Mass ratio] >30 Abnormal 0-3 [facility] Comment on above: Performed By: #### 1 4856955, 8108847 #### [facility] [address] [place] [address] Nitrite Ql (U) Negative Normal Negative [facility] Comment on above: Performed By: #### 1 6866712, 2579789 #### [facility] [address] [place] [address] pH (U) 6.0 [pH] Invalid Interpretation Code 5.0-9.0 [facility] Comment on above: Performed By: #### 1 6851477, 4784137 #### [facility] [address] [place] [address] Protein (U) [Mass/Vol] TRACE Abnormal Negative [facility] Comment on above: Performed By: #### 1 0753895, 8477971 #### [facility] [address] [place] [address] Specific gravity (U) [Rel density] 1.020 Invalid Interpretation Code 1.005-1.03 0 [facility] Comment on above: Performed By: #### 1 6389649, 4434670 #### [facility] [address] [place] [address] Type of Urine collection method Clean Catch Normal [facility] Comment on above: Performed By: #### 1 3760126, 3622164 #### [facility] [address] [place] [address] Urobilinogen Qn (U) 0.2 {Wil'U}/dL Normal 0.0-1.0 [facility] Comment on above: Performed By: #### 1 6479664, 3324519 #### [facility] [address] [place] [address] WBC Auto Ql (U) 1+ Abnormal Negative [facility] Comment on above: Performed By: #### 1 4763079, 1658545 #### [facility] [address] [place] [address] WBC LM.HPF (Urine sed) [#/Area] 0-5 Normal 0-5 [facility] Comment on above: Performed By: #### 1 4169681, 4792494 #### [facility] [address] [place] [address] Uric Acidon 11-18-2022 Urate [Mass/Vol] 7.0 mg/dL Normal 2.2-7.4 [facility] Comment on above: Performed By: #### 2 306586, 7845785, 8524179, 17483842, 565047377, 8266001, 4076536, 3949046, 6231908 ####[facility] [address] [place] [address] Vit B12on 11-18-2022 Cobalamin (Vitamin B12) [Mass/Vol] 495 pg/mL Normal 50-1500 [facility] Comment on above: Performed By: #### 2 390994, 3847622, 7777261, 64586251, 452094803, 2585091, 6667807, 0451121, 6997523 ####[facility] [address] [place] [address] Vitamin D 25 Hydroxyon 11-18 25-hydroxyvitamin D3 [Mass/Vol] 64.8 ng/mL Normal 30.0-100.0 [facility] Comment on above: Result Comment: Vit grewal D deficiency has been defined as a level of serum 25-OH vitamin D less than 20 ng/mL (1,2) by the [place] of Medicine and an Endocrine Society practice guideline. The Endocrine Society further defined vitamin D insufficiency as a level between 21 and 29 ng/mL (2). 1. IOM ([place] of Medicine). 2010. Dietary reference intakes for calcium and D. [place]: The National Academies Press. 2. Kortney MF, Candie NC, Ekaterina WEINBERG, et al. Evaluation, treatment, and prevention of vitamin D deficiency: an Endocrine Society clinical practice guideline. JCEM. 2010; 96 (7):1911-30. Performed By: #### 2 000765, 5470817, 1846569, 46914860, 781583382, 5384595, 6035119, 6731428, 8577112 ####[facility] [address] [place] [address] eGFRon 11-18-2022 GFR/1.73 sq M.predicted among non-blacks MDRD (S/P/Bld) [Vol rate/Area] 25 mL/min/1.73 m2 Low >=59 [facility] Comment on above: Order Comment: Order added by Discern Expert. Result Comment: Fashion Adviser christa kidney disease could be indicated at eGFR's of less than 60 mL/min/1.73m2. Kidney failure is indicated at less than 15 mL/min/1.73m2. Performed By: #### 2 16740079 #### [facility] [address] [place] [address] Office Visiton 11-17-2022 Follow-up visit [id number] Ruben Smyth 1940 M Date Provider Department Center 11/17/2022 IRIS BLACKMAN [facility] Family History Problem Relation Age of Onset No Known Problems Mother No Known Problems Father Family Status - Relation Status Age at Mother Father Level of Service:91943 [place] OFFICE/OUTPATIENT ESTABLISHED MOD MDM 30-39 MIN Normal [facility] Lab Reportson 11-12-2022 Lab Reports [id number]:127 Normal [facility] Lab Reports [id number]#1.00CD:127 Normal [facility] Lab Reports [id number]#1.00CD:127 Normal [facility] Lab Reports [id number]#1.00CD:127 [facility] PSA, FREE AND TOTAL RATIOon 11-09-2022 % Free PSA 11.3 % Normal [facility] Comment on above: Result Comment: The [...] men. Performed By: #### P SAFREE #### [facility] [address] [place] [address] Dr. Alicia Patel Prostate specific Ag [Mass/Vol] 4.6 ng/mL Critically high 0.0-4.0 [facility] Comment on above: Result Comment: Diwght CARRILLOIA methodology. . According to the [place] [employer], Serum PSA should decrease and [...] disease. Performed By: #### P SAFREE #### [facility] [address] [place] [address] Dr. Alicia Patel PSA, Free 0.52 ng/mL Normal N/A [facility] Comment on above: Result Comment: Dwight JUAREZ methodology. Performed By: #### P SAFREE #### [facility] [address] [place] [address] Dr. Alicia Patel INSULINon 11-08-2022 Insulin 18.5 uIU/mL Normal 2.6-24.9 [facility] Comment on above: Performed By: #### T SH, LIPID, T4, FT3, CMP #### [facility] [address] [place] [address] Dr. Alicia Patel CBC AUTO DIFFon 11-06-2022 BASO # 0.0 103/ul Normal 0.0-0.1 [facility] Comment on above: Performed By: #### C BC #### [facility] [address] [place] [address] Dr. Alicia Patel Basophils/100 WBC (Bld) 0.4 % Normal 0.2-2.0 [facility] Comment on above: Performed By: #### C BC #### [facility] [address] [place] [address] Dr. Alicia Patel EO # 0.2 103/ul Normal 0.0-0.[address] [facility] Comment on above: Performed By: #### C BC #### [facility] [address] [place] [address] Dr. Alicia Patel Eosinophils/100 WBC (Bld) 4.6 % Normal 0.9-7.0 [facility] Comment on above: Performed By: #### C BC #### [facility] [address] [place] [address] Dr. Alicia Patel Erythrocyte distribution width (RBC) [Ratio] 13.2 % Normal 11.0-15.0 [facility] Comment on above: Performed By: #### C BC #### [facility] [address] [place] [address] Dr. Alicia Patel Hematocrit (Bld) [Volume fraction] 34.6 % Critically low 42.0-54.0 [facility] Comment on above: Performed By: #### C BC #### [facility] [address] [place] [address] Dr. Alicia Patel Hemoglobin (Bld) [Mass/Vol] 11.4 g/dL Critically low 14.0-18.0 [facility] Comment on above: Performed By: #### C BC #### [facility] [address] [place] [address] Dr. Alicia Patel IG # 0.03 10e3/ul Normal 0.00-0.03 [facility] Comment on above: Performed By: #### C BC #### [facility] [address] [place] [address] Dr. Alicia Patel IG % 0.6 % Critically high 0.0-0.5 [facility] Comment on above: Performed By: #### C BC #### [facility] [address] [place] [address] Dr. Alicia Patel LYMPH # 0.9 103/ul Critically low 1.2-3.8 [facility] Comment on above: Performed By: #### C BC #### [facility] [address] [place] [address] Dr. Alicia Patel Lymphocytes/100 WBC (Bld) 16.3 % Critically low 20.5-60.0 [facility] Comment on above: Performed By: #### C BC #### [facility] [address] [place] [address] Dr. Alicia Patel MANUAL DIFF REQ NO Normal [facility] Comment on above: Performed By: #### C BC #### [facility] [address] [place] [address] Dr. Alicia Patel MCH (RBC) [Entitic mass] 32.9 pg Normal 25.9-34.0 [facility] Comment on above: Performed By: #### C BC #### [facility] [address] [place] [address] Dr. Alicia Patel MCHC (RBC) [Mass/Vol] 32.9 g/dL Normal 29.9-35.2 [facility] Comment on above: Performed By: #### C BC #### [facility] [address] [place] [address] Dr. Alicia Patel MCV (RBC) [Entitic vol] 99.7 fL Critically high 80.0-94.0 [facility] Comment on above: Performed By: #### C BC #### [facility] [address] [place] [address] Dr. Alicia Patel MONO # 0.6 103/ul Normal 0.3-0.8 [facility] Comment on above: Performed By: #### C BC #### [facility] [address] [place] [address] Dr. Alicia Patel Monocytes/100 WBC (Bld) 12.0 % Normal 1.7-12.0 [facility] Comment on above: Performed By: #### C BC #### [facility] [address] [place] [address] Dr. Alicia Patel NEUT # 3.5 103/ul Normal 1.4-6.5 [facility] Comment on above: Performed By: #### C BC #### [facility] [address] [place] [address] Dr. Alicia Patel Neutrophils/100 WBC (Bld) 66.1 % Normal 43.0-75.[address] [facility] Comment on above: Performed By: #### C BC #### [facility] [address] [place] [address] Dr. Alicia Patel Platelet mean volume (Bld) [Entitic vol] 10.1 fL Normal 9.5-13.5 [facility] Comment on above: Performed By: #### C BC #### [facility] [address] [place] [address] Dr. Alicia Patel PLT 168 103/ul Normal 150-450 [facility] Comment on above: Performed By: #### C BC #### [facility] [address] [address] [address] Alicia Patel RBC 3.47 106/ul Critically low 4.70-6.10 [facility] Comment on above: Performed By: #### C BC #### [facility] [address] [address] [address] Alicia Patel WBC 5.2 103/ul Normal 4.0-11.0 [facility] Comment on above: Performed By: #### C BC #### [facility] [address] [address] [address] Alicia Patel FREE T3on 11-06-2022 FREE T3 2.78 pg/mlL Normal 2.18-3.98 [facility] Comment on above: Performed By: #### U RTPCR #### [facility] [address] [place] [address] Dr. Alicia Patel GLYCOHEMOGLOBIN A1Con 2022 ADA RECOMMENDATION SEE BELOW Normal [facility] Comment on above: Result Comment: ADA RECOMMENDED LIMIT 4.0 - 6.0 ADA THERAPEUTIC TARGET < 7.0 ACTION SUGGESTED > 7.0 Performed By: #### T SH, LIPID, T4, FT3, CMP #### [facility] [address] [address] [address] Alicia Patel Glucose [Mass/Vol] 120 mg/dL Normal [facility] Comment on above: Performed By: #### T SH, LIPID, T4, FT3, CMP #### [facility] [address] [place] [address] Dr. Alicia Patel HbA1c (Bld) [Mass fraction] 5.8 % Normal 4.5-6.[address] [facility] Comment on above: Performed By: #### T SH, LIPID, T4, FT3, CMP #### [facility] [address] [place] [address] Dr. Alicia Patel LIPID PROFILEon 11-06-2022 CHOL-HDL RATIO NORM SEE BELOW Normal [facility] Comment on above: Result Comment: 3.3 - 4.4 LOW RISK 4.4 - 7.1 AVERAGE RISK 7.1 - 11.0 MODERATE RISK >11.0 HIGH RISK Performed By: #### U RTPCR #### [facility] [address] [address] [address] Alicia Patel Cholesterol [Mass/Vol] 107 mg/dL Normal <=200 [facility] Comment on above: Performed By: #### U RTPCR #### [facility] [address] [address] [address] Alicia Patel Cholesterol in HDL [Mass/Vol] 34 mg/dL Critically low 40-60 [facility] Comment on above: Performed By: #### U RTPCR #### [facility] [address] [place] [address] Dr. Alicia Patel Cholesterol in LDL [Mass/Vol] 58.8 mg/dL Normal [facility] Comment on above: Performed By: #### U RTPCR #### [facility] [address] [place] [address] Dr. Alicia Patel Cholesterol.total/Chol esterol in HDL [Mass ratio] 3.1 {ratio} Normal [facility] Comment on above: Performed By: #### U RTPCR #### [facility] [address] [place] [address] Dr. Alicia Patel HDL NORMAL > or = 60 mg/dl - LO W CARDIOVASCULAR RISK <40 mg/dl - HIGH CARDIOVASCULAR RISK Normal [facility] Comment on above: Performed By: #### U RTPCR #### [facility] [address] [address] [address] Alicia Patel LDL CALC NORMAL SEE BELOW Normal [facility] Comment on above: Result Comment: <100 mg/dl OPTIMAL 100 - 129 mg/dl NEAR OR ABOVE OPTIMAL 130 - 159 mg/dl BORDERLINE HIGH 160 - 189 mg/dl HIGH >190 mg/dl VERY HIGH Performed By: #### U RTPCR #### [facility] [address] [place] [address] Dr. Alicia Patel Triglyceride [Mass/Vol] 71 mg/dL Normal <=150 [facility] Comment on above: Performed By: #### U RTPCR #### [facility] [address] [place] [address] Dr. Alicia Patel VLDL CALC 14.2 mg/dL Normal [facility] Comment on above: Performed By: #### U RTPCR #### [facility] [address] [place] [address] Dr. Alicia Patel PROF 14(COMP METB)on 023 Albumin [Mass/Vol] 3.4 g/dL Normal 3.4-5.0 [facility] Comment on above: Performed By: #### T SH, LIPID, T4, FT3, CMP #### [facility] [address] [place] [address] Dr. Alicia Patel Albumin/Globulin [Mass ratio] 0.9 {ratio} Normal [facility] Comment on above: Performed By: #### T SH, LIPID, T4, FT3, CMP #### [facility] [address] [place] [address] Dr. Alicia Patel ALP [Catalytic activity/Vol] 75 U/L Normal 46-116 [facility] Comment on above: Performed By: #### T SH, LIPID, T4, FT3, CMP #### [facility] [address] [place] [address] Dr. Alicia Patel ALT [Catalytic activity/Vol] 31 U/L Normal 16-63 [facility] Comment on above: Performed By: #### T SH, LIPID, T4, FT3, CMP #### [facility] [address] [place] [address] Dr. Alicia Patel Anion gap [Moles/Vol] 14.4 mmol/L Normal [facility] Comment on above: Performed By: #### T SH, LIPID, T4, FT3, CMP #### [facility] [address] [place] [address] Dr. Alicia Patel AST [Catalytic activity/Vol] 23 U/L Normal 15-37 [facility] Comment on above: Performed By: #### T SH, LIPID, T4, FT3, CMP #### [facility] [address] [place] [address] Dr. Alicia Patel Bilirubin [Mass/Vol] 0.5 mg/dL Normal 0.2-1.[address] [facility] Comment on above: Performed By: #### T SH, LIPID, T4, FT3, CMP #### [facility] [address] [place] [address] Dr. Alicia Patel Calcium [Mass/Vol] 8.8 mg/dL Normal 8.5-10.[address] [facility] Comment on above: Performed By: #### T SH, LIPID, T4, FT3, CMP #### [facility] [address] [place] [address] Dr. Alicia Patel Chloride [Moles/Vol] 110 mmol/L Critically high 98-[address] [facility] Comment on above: Performed By: #### T SH, LIPID, T4, FT3, CMP #### [facility] [address] [place] [address] Dr. Alicia Patel CO2 [Moles/Vol] 24.2 mmol/L Normal 21.0-32.[address] [facility] Comment on above: Performed By: #### T SH, LIPID, T4, FT3, CMP #### [facility] [address] [place] [address] Dr. Alicia Patel Creatinine [Mass/Vol] 2.41 mg/dL Critically high 0.70-1.[address] [facility] Comment on above: Performed By: #### T SH, LIPID, T4, FT3, CMP #### [facility] [address] [place] [address] Dr. Alicia Patel EGFR-AF MEXICAN 32 mL/min/1.73m2 Critically low >=[address] [facility] Comment on above: Performed By: #### T SH, LIPID, T4, FT3, CMP #### [facility] [address] [place] [address] Dr. Alicia Patel EGFR-NON AF MEXICAN 26 mL/min/1.73m2 Critically low >=60 [facility] Comment on above: Performed By: #### T SH, LIPID, T4, FT3, CMP #### [facility] [address] [place] [address] Dr. Alicia Patel Globulin (S) [Mass/Vol] 3.6 g/dL Normal [facility] Comment on above: Performed By: #### T SH, LIPID, T4, FT3, CMP #### [facility] [address] [place] [address] Dr. Alicia Patel Glucose [Mass/Vol] 72 mg/dL Critically low 74-[address] [facility] Comment on above: Performed By: #### T SH, LIPID, T4, FT3, CMP #### [facility] [address] [address] [address] Alicia Patel Potassium [Moles/Vol] 4.6 mmol/L Normal 3.5-5.1 [facility] Comment on above: Performed By: #### T SH, LIPID, T4, FT3, CMP #### [facility] [address] [place] [address] Dr. Alicia Patel Protein [Mass/Vol] 7.0 g/dL Normal 6.4-8.[address] [facility] Comment on above: Performed By: #### T SH, LIPID, T4, FT3, CMP #### [facility] [address] [place] [address] Dr. Alicia Patel Sodium [Moles/Vol] 144 mmol/L Normal 136-145 [facility] Comment on above: Performed By: #### T SH, LIPID, T4, FT3, CMP #### [facility] [address] [place] [address] Dr. Alicia Patel Urea nitrogen [Mass/Vol] 32.0 mg/dL Critically high 7.0-18.0 [facility] Comment on above: Performed By: #### T SH, LIPID, T4, FT3, CMP #### [facility] [address] [place] [address] Dr. Alicia Patel Urea nitrogen/Creatinine [Mass ratio] 13.3 mg/mg Normal [facility] Comment on above: Performed By: #### T SH, LIPID, T4, FT3, CMP #### [facility] [address] [place] [address] Dr. Alicia Patel T4on 11-06-2022 T4 [Mass/Vol] 7.90 ug/dL Normal 4.50-12.10 [facility] Comment on above: Performed By: #### T SH, LIPID, T4, FT3, CMP #### [facility] [address] [address] [address] Alicia Patel TSHon 11-06-2022 TSH 0.263 uIU/mL Critically low 0.358-3.74 0 [facility] Comment on above: Performed By: #### T SH, LIPID, T4, FT3, CMP #### [facility] [address] [address] [address] Alicia Patel URIC ACID SERUMon 11-06-2022 Urate [Mass/Vol] 7.3 mg/dL Critically high 3.5-7.2 [facility] Comment on above: Performed By: #### T SH, LIPID, T4, FT3, CMP #### [facility] [address] [address] [address] Alicia Patel Pre-Certification Formon Pre-Certification Form [id number]#[id number]:127 Normal [facility] ECHOCARDIO M/2D COMPLETEon 0 10-26-2022 ECHOCARDIO M/2D COMPLETE Patient: VICTORINO SMYTH Exam Date: 10/26/2022 : 1940 Gender:M Ordering : IRIS CORONEL Admission #: [id number] Family : DR TRAY ALFARO . Order #: [id number] CLICK HERE TO VIEW EXAM ECHOCARDIOGRAM REPORT [...] [place] M.D. on 10/28/2022 at 13:02 Normal [facility] RAD - MISCon 10-25-2022 RAD - MISC [id number]:127 Normal [facility] XR KUB 1 VIEWon 10-22-2022 XR [...] by: TYLER MONSIVAIS Date: 2022-10-22 09:12 Normal [facility] RAD - Ultrasound Reporton RAD - Ultrasound Report [id number]#[id number]:127 Normal [facility] US KIDNEYSon 10-18-2022 US KIDNEYS EXAMINATION: [...] by: TESS FORD Date: 2022-10-18 07:04 Normal [facility] IntraOperative Documentson 0 10-15-2022 IntraOperative Documents [id number]#1.00CD:127 Normal [facility] 37on 10-14-2022 37 Increase amlodipine back to 10 mg daily Increase Isosorbide to 120 mg daily ( 2 tabs) daily for chest pain Goal b/p is 130/80 or less Call office for continued chest pain/burning, shortness of breath, or call 911 for any worsening symptoms. Normal [facility] BNPon 10-14-2022 Natriuretic peptide B (Bld) [Mass/Vol] 300.0 pg/mL Normal <=1,800.[address] [facility] Comment on above: Performed By: #### T SH, LIPID, T4, FT3, CMP #### [facility] [address] [place] [address] Dr. Alicia Patel CBC AUTO DIFFon 10-14-2022 BASO # 0.0 103/ul Normal 0.0-0.[address] [facility] Comment on above: Performed By: #### T SH, LIPID, T4, FT3, CMP #### [facility] [address] [address] [address] Alicia Patel Basophils/100 WBC (Bld) 0.6 % Normal 0.2-2.[address] [facility] Comment on above: Performed By: #### T SH, LIPID, T4, FT3, CMP #### [facility] [address] [address] [address] Alicia Patel EO # 0.2 103/ul Normal 0.0-0.[address] [facility] Comment on above: Performed By: #### T SH, LIPID, T4, FT3, CMP #### [facility] [address] [place] [address] Dr. Alicia Patel Eosinophils/100 WBC (Bld) 4.6 % Normal 0.9-7.0 [facility] Comment on above: Performed By: #### T SH, LIPID, T4, FT3, CMP #### [facility] [address] [place] [address] Dr. Alicia Patel Erythrocyte distribution width (RBC) [Ratio] 14.2 % Normal 11.0-15.[address] [facility] Comment on above: Performed By: #### T SH, LIPID, T4, FT3, CMP #### [facility] [address] [place] [address] Dr. Alicia Patel Hematocrit (Bld) [Volume fraction] 36.1 % Critically low 42.0-54.0 [facility] Comment on above: Performed By: #### T SH, LIPID, T4, FT3, CMP #### [facility] [address] [place] [address] Dr. Alicia Patel Hemoglobin (Bld) [Mass/Vol] 11.8 g/dL Critically low 14.0-18.0 [facility] Comment on above: Performed By: #### T SH, LIPID, T4, FT3, CMP #### [facility] [address] [place] [address] Dr. Alicia Patel IG # 0.03 10e3/ul Normal 0.00-0.[address] [facility] Comment on above: Performed By: #### T SH, LIPID, T4, FT3, CMP #### [facility] [address] [place] [address] Dr. Alicia Patel IG % 0.6 % Critically high 0.0-0.[address] [facility] Comment on above: Performed By: #### T SH, LIPID, T4, FT3, CMP #### [facility] [address] [place] [address] Dr. Alicia Patel LYMPH # 1.1 103/ul Critically low 1.2-3.[address] [facility] Comment on above: Performed By: #### T SH, LIPID, T4, FT3, CMP #### [facility] [address] [place] [address] Dr. Alicia Patel Lymphocytes/100 WBC (Bld) 22.6 % Normal 20.5-60.0 [facility] Comment on above: Performed By: #### T SH, LIPID, T4, FT3, CMP #### [facility] [address] [place] [address] Dr. Alicia Patle MANUAL DIFF REQ NO Normal [facility] Comment on above: Performed By: #### T SH, LIPID, T4, FT3, CMP #### [facility] [address] [place] [address] Dr. Alicia Patel MCH (RBC) [Entitic mass] 33.2 pg Normal 25.9-34.[address] [facility] Comment on above: Performed By: #### T SH, LIPID, T4, FT3, CMP #### [facility] [address] [place] [address] Dr. Alicia Patel MCHC (RBC) [Mass/Vol] 32.7 g/dL Normal 29.9-35.[address] [facility] Comment on above: Performed By: #### T SH, LIPID, T4, FT3, CMP #### [facility] [address] [place] [address] Dr. Alicia Patel MCV (RBC) [Entitic vol] 101.7 fL Critically high 80.0-94.[address] [facility] Comment on above: Performed By: #### T SH, LIPID, T4, FT3, CMP #### [facility] [address] [place] [address] Dr. Alicia Patel MONO # 0.7 103/ul Normal 0.3-0.[address] [facility] Comment on above: Performed By: #### T SH, LIPID, T4, FT3, CMP #### [facility] [address] [place] [address] Dr. Alicia Patel Monocytes/100 WBC (Bld) 13.8 % Critically high 1.7-12.0 [facility] Comment on above: Performed By: #### T SH, LIPID, T4, FT3, CMP #### [facility] [address] [place] [address] Dr. Alicia Patel NEUT # 2.9 103/ul Normal 1.4-6.[address] [facility] Comment on above: Performed By: #### T SH, LIPID, T4, FT3, CMP #### [facility] [address] [place] [address] Dr. Alicia Patel Neutrophils/100 WBC (Bld) 57.8 % Normal 43.0-75.[address] [facility] Comment on above: Performed By: #### T SH, LIPID, T4, FT3, CMP #### [facility] [address] [place] [address] Dr. Alicia Patel Platelet mean volume (Bld) [Entitic vol] 10.1 fL Normal 9.5-13.5 [facility] Comment on above: Performed By: #### T SH, LIPID, T4, FT3, CMP #### [facility] [address] [place] [address] Dr. Alicia Paetl PLT 160 103/ul Normal 150-[address] [facility] Comment on above: Performed By: #### T SH, LIPID, T4, FT3, CMP #### [facility] [address] [place] [address] Dr. Alicia Patel RBC 3.55 106/ul Critically low 4.70-6.[address] [facility] Comment on above: Performed By: #### T SH, LIPID, T4, FT3, CMP #### [facility] [address] [place] [address] Dr. Alicia Patel WBC 5.0 103/ul Normal 4.0-11.[address] [facility] Comment on above: Performed By: #### T SH, LIPID, T4, FT3, CMP #### [facility] [address] [place] [address] Dr. Alicia Patel Coding Summary.on 10-14-2022 Coding Summary. CD:[id number] Ww+PGh lYWQ+AD8WGPQgF24nvAOhhD5pZ 0NMTElOSywgQVBQTElOSyIgbmF wBH0xxTLfUVIe IC8+VW4wWMOmYqhjiREoo3K0zA P5L30kps5qCWndcYW3ZQByJsFy mvrok4bhoIh7BDpaIitjVlJs XZXelH11KFW3oK15Au09jXHgrR Elw2okvWw3ZuZnRZVhXXQ1wMnl YLupa8YvCNEqU89rcSKhr0O6 KCPpdYbppMMhBgVliTF5cG9nEO qplezss8btzbtlRzc7yz01xDXx n5U9cWH0I5WnmkU5QBAkyQTt FfrseHEFnK7mbtjoc8orprfgOn XkQMMjNTe3EYb6QQRltHmuXdGg PD41QJD7RUCoayAeD7CaLCUo oTglVkP6u0M1Ue3JW7ARDblrA3 VNTUFSWTwvdGQ+CG48si01W1Lq EqghPfo8TNAsSKV9tVS7kR7a DGZvMCkje2D0zKO8K2TzzdPnjs 1fx3mkWZWiWZrqF48vjSPao0I3 XQPllCV3LZEkrRdsYfBkrW80 Oyc+KBCkeMmyo3SjKijdl6gdj7 cpvTt6KykyOZOmcyPqtVpyQHS5 e1KuNm9qWMBreBM8bEN6xL2q DhWqFoS9COiwB213XsYftEThKf tbV99yW4YzxEC+RSZoAcv8LBFk mGnlWF9uE6NtJSTveibcrIBt fCkxTE9kCCHckvykYSPtkO4mHC RaE0q1KhJsUvD4DHitX5NqJHLy ubhxWx96gO6eZbRbHpZ7WQwd O1LlguJ2XUFibTCsHRctBOQ4M7 5zh9T8DAYlIOElJOV5zDK0qR7b bGlnbjogbGVmdDsgdmVydGlj VTyePZxpA086JPMvmHepMmExQF luZyBEYXRlOiAgMDQvMjAvMjAy MzwvdGQ+LNNuIRO6cStcPQOg vYBtNVmfRj1enSgfgNxjMG8bAN RlofsyIMRztB2gVQCeaBRwyQft SP7wRWOxdejko006JhAcBCF9 IEOmoYHjJ4EadL9xTnAbADYfBN UoG5XfmFSpZNpsS090XJtkIiX6 DORavnGfM7FxZLXwjJetZiT4 z2X0Tl3Fu3PniocxS5BihHBcUv XzGdhjJXt8F8GaBuhjtEA+PC90 VBYkVO73EWr1UFF7mNigVMma FICwV5ZrwS5gZnQrQZWjWRFwAm c+PHRhYmxlIHdpZHRoPScxMDAl FrGxxQvcPV7eDk1dBULcTVUz qBscgKAzYlQqf4zePAJmLIgkFR 8yqVlpR3VleQY3ZPLzz9k9Ql18 E54fY5ZiwNU+NYFmhHN6wZS1 gO9mHrIzBnD9EPjwB247XoXlpE KxMnfkr8ssa6afkEe2KjD1HIIx stIkiNpiKEB1f5UnDm36E50k IHdpZHRoPSIxNSUiIHZhbGlnbj 1hhY2zNx6+KMHdoDE9nGX6bC9u GjEtKvL7TAckV912TtNwfHEm Mufnz2hxh6fdyCf2KxUpOUOuyt HyaNuyLGO0x8KhUu71T9LwbKwh t7IrLda9km38wPVia6M8zAD9 Q4ScSGRhpzjknKQvmLrdTJ0zSM BvrrhqMCTizM6hVOUdZ4q2YwCk PcJ0ECgpZ9FwyaH3AQRusDEn FIRynMODuE0yfxayf1pnrqvpTq QwTJGnYHi9DHn6MBWfpQkiRgIy RHQ7WwT8BDC0vFWmbV9dtAnc uelcqS1kWqn+YNJ8aMIfkWANMA 1lOjwvdGQ+RSPqTNV0eClnTDsh BUObyA9mZWNlI2l5YqOwJmU5 ZSavB6IbzzM7GBXhpRErWJXgxW SZqO6zeqaus1ellmpfOkQhWKOa FJc9ONr1TIEegTofXfSgEKZ2 XmR7EOS4jLBelN5npMucefqctK 9wOyc+TzcrzDjrWZB3DEz6P2Yc Tky1KRVqwBowDJ9wnGJjELwr Fu1hzDkxgMiaTU0zQNUphisjg6 79DbTcm0avDJQtpJUjIWkiHIX8 G14ja9O0PSNuXPXeASC7wWZ6 wF3wiBqgvfehqZYffGzpyaJfaB hpAUycNTqfA996BYZkjOhcWkJj JJe0F6CyCii5GNYnbCxaVJ5s fROkVAonQo5mdDjuuPsiJJ6iIR Cmkqqdn907VrNiw1mhVUWxgKAq EJcsYFU1N12do0I6CCVhYDGp QFP9lND1iG9pgFicrajmsHLasL eeegQrrTlsITqjJEjcM547OYPe zDxoOlWdjHz6I7MiMcd4OKFo gSjeOG8lkJGrNPrjTl9wyOladL zaWJ7sPWAdclais812NgXom9fm TNUtaMWvHDhvYPI0U27bn4C8 HBFqSFFzQTG8gOA0jD9agVwmsk ogbGVmdDsgdmVydGljYWwtYWxp R209FKJedUsoFyHquSocegJo LZfsEIa1P7KrAtxgsJD+PC90YW SdGX40bVOwsITsc0mrmIs4AwIn BCDaUEP3iNthUNfub2BePLLt P49foWYeq4V2CEIlqTqcyLMaHw QciPP2sP9jGWskwavee3mqhesu Fvjxc7eign64kT19Y79bINnm AZOeJANeLAZyWFEvgXspjd7pzP 9wIi8+LFThoPY9oTG8zG7jIGOd PpV6QFvvA924UbJqmSMeYkuf q0rod7vxiZj8GqG5ACDenrHfcD owDMM6i2WbIe22P28cWIkuLMLy OKUiDFEwTKBsvWuejp9kfG9s Ii8+ACDwpME0bLJ9pY6hIfJpRw M6EItfY449HvZlqJQyDmxlX85s G5VipCF+CVQkAfc5OYLggEtl HU8ueNJlZVgrJt6fHHK3GyLdDh IiYMvtQ4ZkSJXyeygdvryifQT0 GICvNSFrzP56Cq2thYphFMRz kMWFgP1cuthvp7xfbfciUuFoRQ ZtNVb4XWn9ZIDtdOtzRjMkMEH9 TdR2KNT8qPLjhH3tsWnkcslz zP8fS6DxIQOzbbomZs69wW6jWr SgRfS1JMxtNtx+AECAGV4FCigv CgWYGhSWCRKFAF94QD99aKZv g3W7aZZ1Y4CuEACtfdzjxuztvL M3CBTgHLMsaV51bYIpQOgfWk4y q2G6s497PIGsDBYcdN93Il3l fUavLJTpwYSNsH0poiigj2nhjb ftWcDyRLJsHSc4ABg8POMmlKxw KfWiSNJ5EwL7EVP3oKSvhX8y bEvoyfwwjW0dJlf+MDIvMDQvMT q8DzwnqUB+ZXSxOXL1wWmtKBgv JTUklN3pGBJtC4a4WjFoAyE1 BOulN6OvNKUjacnwOe06uU2yOr NuJzZ1IFtnV3VlczD9PHPdrJWx QRabOYZ9N30yx2K0UUDoFQVh GAD6uXE8aU4mgRccjsuaoNInyZ uiugLpvOcqRQbyTYrsM923QYTl pBtmYzezXOupCUYaLA11XH52 fRLup1N4gMI0S6RfCUVclmykld bwsBY0BEToDFGxsX89cAGkILmz Hl9ix4R9b372RKWpWHJglI12 We6qbZuvJRZueQWUkN8fugqnp9 ifvardTaYhCQWsWPi4BCo7SDFw cSuzFoGcKCU4ArT2TPD7hPQt bU9iaUjgcspvjJ8gCmu+TWFsZT wvdGQ+MYLqNZJ4dHbdOEpdPUCk rB8zGXVaL9j5PtWkYsN8DAsh V7JjCMDultcsBf31jD0dUwZkKr K0VIcpF2WgqkL5JBKyvXRaCSdu EYL2Z32mc3R3BILeKEIdCVN5 aJH6dN8xuUzvmqbzeFBbjOkyes AxsRqdNUuuNYmgG730DNEfjPhg NhRtIhOzDHBcqqatY1YmQPCZ UOxwF2WaR0NgsYhkuPY+PC90cj 42C9WsXjcwXoy8TNSxKHX1uKE0 iM8rVZCbWAlvy3Q4xMV8Y6Zd qwIwny8go1ciPQOyAXbrE37beV Nzg4Q5POUpmQC9OGXoeZyjHfQp rL12Bzl+SJNghTrpt0KkQrlg g3ams1pqrMx2WcHvETLpenQauB gxLRM0s2UtDr85S50qKYbcZFMg UBIjFVVsUAKnvOzikz7qfQ0n Ii8+DCAgjGQ6hUI5nL8aHnTuZx G4CMrsZ761PjUqjCGtDaddh0sv l3csgQt4GvXbBDTfkeTxbFuv BZY9d3XnJw30E8PkhJicx0YgKl g7qj26dCOnw6O0bXZ8H9MlZTDy jbbwrTOmhYriQQ4tOMFmthme YJFuqN3pIIHeM1g0VwSwAuI0PA ngB6TaeoR1KRZfyPYnZCZjeQAE jD6hdqtsz7vltcenYtMmDAXi BUg4OEn7JLQjrFfdBhLzTHM8Zb Z6FHF4oKUtwR2phFjvdxsfeZ7t Oyc+IKr6i0gahUUaNU8xaSV4 LB15NF51sAOip0E9uIP5X4BdNI SndycnsphluPW4QQSjBEFdsD86 Tn1cgQhxUc3hRDPpWZG6UUYn fFMfR3DdwK2gIwAtQOHjMVKwW6 UiwKGtQHdhH534MDrvAfU4ZUWr qdYtR7XsWCDfoPumHbK8a5L5 Cs0TQY64LY22PU51lMDqg9K1cR A0J2RnUQFuflgzgblbbCC7OSEf EOOqcX33Ml9fsZvoEw6tVNBv GEU6SJJmlXEzA3UmvW2vBeCyVN OoYEUzE0RjcXMsPSznI490JNpv WdL6INDhzeDiW4PxJXPqvXpk BcL9w6T7Jc2WYa08PI22PJ62iF Fwl4T9zAC8B7CaRZRjvjvstzzj qJQ4EGJaBXDxcT74Fj0wcBbh Wz6hFQPiPMO6MNThfNXwV8RqeP 8nEeCmADRwVCBrZ6DysHAcNSkg D249BBhuKlR6IJEholIlC3Jc RQGpgQfuNtT4m9L9Ey8XMHyzdr e3J0IwXkvuoQP+ZI92KKIzRM07 wYIcfBOge1ldcZs7WxNgDVKd EYE7uJku (more content not included)... [facility] Visiton 10-14-2022 Follow-up visit [id number] Ruben Smyth 1940 M Date Provider Department Center 10/14/2022 IRIS BLACKMAN [facility] Family History Problem Relation Age of Onset No Known Problems Mother No Known Problems Father Family Status - Relation Status Age at Mother Father Level of Service:77620 [place] OFFICE/OUTPATIENT ESTABLISHED MOD MDM 30-39 MIN Reason for Visit and Comments: Chest Pain [448678] Coronary Artery Disease [187] Hypertension [282310] Normal [facility] PROF CHEM 8 (BAS METB)on Anion gap [Moles/Vol] 13.9 mmol/L Normal [facility] Comment on above: Performed By: #### T SH, LIPID, T4, FT3, CMP #### [facility] [address] [place] [address] Dr. Alicia Patel Calcium [Mass/Vol] 8.3 mg/dL Critically low 8.5-10.1 [facility] Comment on above: Performed By: #### T SH, LIPID, T4, FT3, CMP #### [facility] [address] [address] [address] Alicia Patel Chloride [Moles/Vol] 108 mmol/L Critically high 98-107 [facility] Comment on above: Performed By: #### T SH, LIPID, T4, FT3, CMP #### [facility] [address] [address] [address] Alicia Patel CO2 [Moles/Vol] 23.5 mmol/L Normal 21.0-32.0 [facility] Comment on above: Performed By: #### T SH, LIPID, T4, FT3, CMP #### [facility] [address] [place] [address] Dr. Alicia Patel Creatinine [Mass/Vol] 2.41 mg/dL Critically high 0.70-1.30 [facility] Comment on above: Performed By: #### T SH, LIPID, T4, FT3, CMP #### [facility] [address] [address] [address] Alicia Patel EGFR-AF MEXICAN 32 mL/min/1.73m2 Critically low >=[address] [facility] Comment on above: Performed By: #### T SH, LIPID, T4, FT3, CMP #### [facility] [address] [place] [address] Dr. Alicia Patel EGFR-NON AF MEXICAN 26 mL/min/1.73m2 Critically low >=[address] [facility] Comment on above: Performed By: #### T SH, LIPID, T4, FT3, CMP #### [facility] [address] [place] [address] Dr. Alicia Patel Glucose [Mass/Vol] 74 mg/dL Normal 74-[address] [facility] Comment on above: Performed By: #### T SH, LIPID, T4, FT3, CMP #### [facility] [address] [place] [address] Dr. Alicia Patel Potassium [Moles/Vol] 4.4 mmol/L Normal 3.5-5.[address] [facility] Comment on above: Performed By: #### T SH, LIPID, T4, FT3, CMP #### [facility] [address] [place] [address] Dr. Alicia Patel Sodium [Moles/Vol] 141 mmol/L Normal 136-[address] [facility] Comment on above: Performed By: #### T SH, LIPID, T4, FT3, CMP #### [facility] [address] [place] [address] Dr. Alicia Patel Urea nitrogen [Mass/Vol] 36.0 mg/dL Critically high 7.0-18.[address] [facility] Comment on above: Performed By: #### T SH, LIPID, T4, FT3, CMP #### [facility] [address] [place] [address] Dr. Alicia Patel Urea nitrogen/Creatinine [Mass ratio] 14.9 mg/mg Normal [facility] Comment on above: Performed By: #### T SH, LIPID, T4, FT3, CMP #### [facility] [address] [place], [place] [address] Dr. Alicia Patel TROPONIN, HIGH SENSITIVITYon 10-14-2022 HSTROP 9.6 pg/mL Normal 4.0-76.[address] [facility] Comment on above: Result Comment: CUT- OFF POINTS HAVE BEEN ESTABLISHED BASED ON THE FOURTH UNIVERSAL DEFINITIONS OF MYOCARDIAL INFARCTION. THE UPPER REFERENCE LIMIT (URL) OF TROPONIN, DEFINED THE 99TH PERCENTILE OF cTnI DISTRIBUTION IN A REFERENCE POPULATION, HAS BEEN CONFIRMED THE DECISION THRESHOLD FOR NE DIAGNOSIS. Performed By: #### T SH, LIPID, T4, FT3, CMP #### [facility] [address] [place], [place] [address] Dr. Alicia Patel Main OR Intraoperative Recor don 10-13-2022 Main OR Intraoperative Record IntraOp Document Type FT Summary Primary Physician: Ni OLIVARES MD Finalized Date/Time: 10/13/22 15:17:44 Pt. Name: VICTORINO SMYTH/Sex: 1940 Male Med Rec #: [id number] Physician: Ni OLIVARES MD Financial #: [id number] Pt. Type: A Room/Bed: [place] [address] Admit/Disch: 10/07/22 09:01:16 - 10/07/22 17:40:00 Institution: [...] Role Performed Anesthesiologist of Surgeon - Primary Adult Health Clinical Nurse Specialist - Primary Record Time In 10/07/22 [...] and tissue Entry 1 Skin Integrity Intact, [place], Warm, and Skin Abnormality No Dry Outcomes [...] at Side (more content not included)... [facility] Consent for Anesthesiaon Consent for Anesthesia [id number]#1.00CD:127 [facility] Discharge Instructionson Discharge Instructions [id number]#1.00CD:127 [facility] IntraOperative Documentson 0 10-08-2022 IntraOperative Documents [id number]#1.00CD:127 [facility] IntraOperative Documents [id number]#1.00CD:127 [facility] IntraOperative Documents [id number]#1.00CD:127 [facility] Preoperative Documentson Preoperative Documents [id number]#1.00CD:127 [facility] Preoperative Documents [id number]#1.00CD:127 [facility] Preoperative Documents [id number]#1.00CD:127 [facility] XR Abdomen 1 Viewon 10-09-19 23 [...] mGy = 0 DAP = 0 [facility] CHEMISTRYOrdered By: Lab ROP User on 10-07-2022 Glucose [Mass/Vol] 101 mg/dL High 55 - 99 mg/dL [facility] POC Subsection Comment on above: Result Comment: Jackelin quach RN/ POC Device SN [id number] Invalid Interpretation Code FT POC Subsection POC User ID [id number] Invalid Interpretation Code [facility] POC Subsection POC Username BEE NORRIS Invalid Interpretation Code [facility] POC Subsection Capillary Glucose POCon 09-25 Glucose [Mass/Vol] 101 mg/dL High 55-99 [facility] Comment on above: Result Comment: Jackelin quach RN/ Performed By: #### 2 [id number] #### [facility] [address] [place] [address] Consent for Procedure/Surger yon 10-07-2022 Consent for Procedure/Surgery [id number]#1.00CD:127 [facility] Consent for Treatmenton 09-25 Consent for Treatment [id number]#1.00CD:127 [facility] H&P Updateon 10-07-2022 H&P Update [id number]#1.00CD:127 [facility] Inpatient Patient Summaryon 10-07-2022 Inpatient Patient Summary [address] [address] [facility] Clinical Discharge Instructions PERSON INFORMATION Name: VICTORINO SMYTH PHYSICIANS Admitting Physician: Ni OLIVARES MD Attending Physician: Ni OLIVARES MD PCP: Erum OLIVEROS, Tray Discharge Diagnosis: Comment: PATIENT EDUCATION INFORMATION Instructions: Post Op Patient Instructions - FT (CUSTOM); Lithotripsy, Care After Medication Leaflets: Follow up: With: Address: When: Ni OLIVARES [address] [place] [address], [address], [address] [address] Business (1) Comments: We were [...] Location Start [facility] Office Visit [facility] [place] 10/29/2022 8:45 AM 10/29/2022 9:00 AM Confirmed MEDICATION LIST New Medications [id number], [address], [place] [id number], [phone] acetaminophen-hydrocodone (acetaminophen-hydrocodone 325 mg-5 mg oral tablet) [...] Capsules By Mouth every day. Comment: [facility] Main OR PACU I Recordon 09-25 Main OR PACU I Record PACU Phase I Docum ent Type FT Summary Primary Physician: Ni OLIVARES MD Finalized Date/Time: 10/07/22 16:21:28 Pt. Name: HAJAVICTORINO/Sex: 1940 Male Med Rec #: [id number] Physician: Ni OLIVARES MD Financial #: [id number] Pt. Type: A Room/Bed: [facility]/ Admit/Disch: 10/07/22 09:01:16 - Institution: Case Times [...] By: ALESSIA YOON RN 10/07/22 16:21 [facility] Main OR PACU II Recordon Main OR PACU II Record PACU Phase II Doc ument Type FT Summary Primary Physician: Ni OLIVARES MD Finalized Date/Time: 10/07/22 18:36:17 Pt. Name: VICTORINO SMYTH/Sex: 1940 Male Med Rec #: [id number] Physician: Ni OLIVARES MD Financial #: [id number] Pt. Type: A Room/Bed: AS06/ Admit/Disch: 10/07/22 [...] By: Eliz Mcbride RN 10/07/22 18:36 [facility] Main OR Preoperative Recordo n 10-07-2022 Main OR Preoperative Record PreOp Document Type FT Summary Primary Physician: Ni OLIVARES MD Finalized Date/Time: 10/07/22 15:12:57 Pt. Name: VICTORINO SMYTH/Sex: 1940 Male Med Rec #: [id number] Physician: Ni OLIVARES MD Financial #: [id number] Pt. Type: A Room/Bed: Admit/Disch: 10/07/22 09:01:16 [...] 10/07/22 15:12 Aravind Gatica 10/07/22 15:12 [facility] Monitor Recordon 10-07-2022 Monitor Record [id number]#1.00CD:127 [facility] Monitor Record [id number]#1.00CD:127 [facility] Operative Reporton 3 Operative Report Patient: [...] it well. 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 Jose Alfaro to arrange for possible further follow-up regarding this. She was in agreement with the plan.. Estimated Blood Loss: 0 ml. Complications: None. Anesthesia type: General. [facility] Comment on above: Result Comment: Elec tronically Signed By: Ni OLIVARES MD\.br\Date and Time Signed: 10/07/22 15:51 EDT Outpatient Surgery Discharge Instructionon 10-07-2022 Outpatient Surgery Discharge Instruction [address] [address] Patient Discharge Instructions PERSON INFORMATION [...] Follow up: With: Address: When: Ni OLIVARES [address] [place], [place] [address]KAYLEEAK IZZY, [address], [place] [phone] Business (1) Comments: We were able to [...] any other anesthesia procedures. Type Location Start [facility] Office Visit [facility] [place] 10/29/2022 8:45 AM 10/29/2022 9:00 AM Confirmed [...] to serve you. Thank you for choosing [facility] HERE ARE THE MEDICATION CHANGES THAT OCCURRED DURING YOUR HOSPITAL STAY New Medications [id number], [address], [place] [id number], [phone] acetaminophen-hydrocodone (acetaminophen-hydrocodone 325 mg-5 mg oral tablet) [...] Instructions: Lithotripsy, Care (more content not included)... [facility] Patient Education - Texton 0 [...] these instructions at home: Medicines ? Take vcxi-gxm-qqgwlrf and prescription medicines only as told by [...] help ri (more content not included)... [facility] Progress Note-Physicianon Progress Note-Physician Patient: VICTORINO SMYTH Age: 82 years Sex: Male : 1940 Associated Diagnoses: None Author: Toya OLIVEROS, Timothy Motta Postoperative Information Postoperative disposition: Postoperative disposition: To PACU. Optimetrix number: Optimetrix number [id number]. Anesthetic utilized: General. Physical Examination Vital Signs [...] when meets criteria ( To home ). [facility] Comment on above: Result Comment: [...] Problems Acute kidney failure / SNOMED CT 89550892 / Confirmed Anticoagulated / SNOMED CT 023496166 / Confirmed BPH associated with nocturia / SNOMED CT 4348951008 / Confirmed BPH with urinary obstruction / SNOMED CT 2372284872 / Confirmed Chronic obstructive pulmonary disease (COPD) / SNOMED CT 25923915 / Confirmed Coronary artery disease / SNOMED CT 66110724 / Confirmed DM (diabetes mellitus), type 2 / SNOMED CT 411333165 / Confirmed Elevated PSA / SNOMED CT 8558542811 / Confirmed Erectile dysfunction / SNOMED CT 5863935501 / Confirmed Flank pain / SNOMED CT 948923795 / Confirmed H/O: hypothyroidism / SNOMED CT 187366095 / Confirmed Hydronephrosis / SNOMED CT 95061468 / Confirmed Hydronephrosis with ureteral calculus / SNOMED CT 0225650341 / Confirmed Hyperlipidemia / SNOMED CT 35209774 / Confirmed Hyperplastic colon polyp / SNOMED CT 3894673826 / Confirmed Hypertension / SNOMED CT 8023664908 / Confirmed Kidney stone / SNOMED CT 477135317 / Confirmed Myocardial infarct / SNOMED CT 43048588 / Confirmed Occult blood in stools / SNOMED CT 54651723 / Confirmed Postprandial diarrhea / SNOMED CT 01294552 / Confirmed Prostate cancer / SNOMED CT 5100730021 / Confirmed Rheumatoid arthritis / SNOMED CT 244470314 / Confirmed Ureteral stone / SNOMED CT 04454141 / Confirmed Urinary retention / SNOMED CT 316453504 / Confirmed, Active Problems (24) Acute kidney [...] Mean Kayce (more content not included)... [facility] Comment on above: Result Comment: Elec tronically Signed By: Toya OLIVEROS, Timothy Villanueva.br\Date and Time Signed: 10/07/22 16:52 EDT Coding Summary.on 09-22-2022 Coding Summary. CD:[id number] Ww+PGh lYWQ+GU6JYYUyB04noYEjpP0jM 0NMTElOSywgQVBQTElOSyIgbmF oJF7ahJGmZXQk IC8+IS9oWHRiWbhzcQYfo7A4xD Q8Q95msp0gWTtnrVO7FJJqWsIw zelmu4llzTm1LMapKhvvRwYz MEVbzT08WPC7vH61Qa34zMHkoF Nac5cojDf2TlHyNGVaYJN7kBzf CVvux3BdRZDlP65oxXQjc9L2 RRRbiKcyuJKpTfWlcXU6aN4pRP rrwuvjy1bdwyeiOqp2ps07aLKl w9C9xPN8H7FpxvL2MUMigOAx ZiuikOVVlD6jvyzuv3xpsemiJk UbXUBtPHs1GBw5QYWhtLbtFbRa MT15CGD6FEMpsbLbI6WfHGBy eUacOfQ3e9T9Xr2KX2JLCijqL3 VNTUFSWTwvdGQ+AV46ic17P7Mi QpnqNff3PZHnESN0vAU6pI3a GAMrCShbq5V1dRS2O9UbezMppa 0oj5uvMHZpXNvpN15edZZzb0A2 YOPyiPM2WJGrwBvmEdXxmX24 Oyc+GFZfhOpeo5ApTiyad5egh4 fgqVk0OnkvXBBkdhCxtCaqCTA0 k4NePl4aXAUesMH3tSF6wC1r ZaThWlV1LRmnG946JhOghAAiIh saZ42fG0HriUF+WDIiRqz2WHTv oRwhBK0xX0TbVOUwmzaefQOp iRiiMD8hZLPikegaKSWtbP1aUS AkH9g7PjZhFeL0OButD4XwJIGq dwyhNm16yC9lYgVsNuK0JVzi U2IrjqC7EASuwRMyIRxxSCA2H7 2tz0P2JGDmHQGvIFC3cOZ6wL1e bGlnbjogbGVmdDsgdmVydGlj JUkvFBabS951KLIaaIuvGtBxTF luZyBEYXRlOiAgMDMvMjkvMjAy MzwvdGQ+ITOyMXI8wGpmKFUa rMLiYWxmHi6amYupnVlaGQ8zCQ PnktzrUVViyD2pCMLqlYObvEez FJ0xGNMaowkrb288WxEiSUI1 QWDkbDYsJ2AslL4zRbFgZGCjHJ SgF9IviLWcDBooG541WLxqWrX0 PZFnorLyG1OjABRzgMfdEiD2 a7G9Yq4Fp6JkfupwG2HuuTJtFv JtNbglPFk9G4IyHjeavNG+PC90 TMJoQQ66KXp6JDK0qEqzXSfw RGGfK9DcnH5bQkReJYWiQVBzQf c+PHRhYmxlIHdpZHRoPScxMDAl GdZctTlgVX6vIc2wCJXfNSJl rVnxxGTbHzTgi8fwHKGvEQeaNA 3jmEbhD8YuqPK3WCTng9r3Ip66 T58oQ4PjfIB+LGEzgDR4zUA2 sD3vDaIfEzJ4YCogJ733MgGkpA PsCahrm3zxf7wrgJp5ZiZ3JDNp pfQwhKddAVA7j6NqQb60K67p IHdpZHRoPSIxNSUiIHZhbGlnbj 3irS3tUr9+YZYnlAE1oKW3rW4p GjWhUhP9PDtoM265CiHydUEg Qocbm9ata9lvbFs8KxSgLMUhug VygIpkERB8i6KmOr81X6IalCje m0YsCkd0yq58qZExu6U2nKG5 W4AoFAHgnlmubTOniHtcWF8xUV RqtphxZYLjeI5iGWCuE5y4TcQk GkY1JWpqJ7XftxK3LHQicNDe QSPjaHZEdK2avtmdm2hbukpiSi FmAVDuZHu6ZLz4NTOgiZngDzRh RWJ5MzL0KPO5qCLfjS1kbEei czedzX9xIzk+ELK0aALtdAQBUF 1lOjwvdGQ+RCMvQPB8jJvbSVfg OTIbbR0pZMLrE0j7JdCyIaH7 LXouK6JlnjD9VKFeiJBuMAAuyC UPdI6mssjgn1lliouoQwSySBZo ZXy9QOu9JJKeuPisQnOkGDG0 PfA4ZIK0qCItdV6wyXpdwstnhM 9wOyc+QaumrCgiPXA0BVd8I3Fe Fau1ILQixHnqRF6fcNRgYVbt Hf6iiQpnuNzjRC7aXVIgmxdxo1 98KhAzj9nfYIQohPWiYZoiLAY9 D96le5D7CSPfQVGsZDZ6fDB2 uF8emUqgqgrcgOWjoZrrorPpcB xuNFnkAAqlI813DDBjcKuzJtJf SHn1H7FrPso4JJYmtAkrJV3g yBVuFBuxLz7ceZemsAajXS7mNE Sbmpofm636AsRew9bnHEZjiVZp IVlsAQC2R65mh4I7IZNdGJOr SLS1jBL9cK1rbWobddgopGLwdF uptnNasVcyWPhgSOtwW201CEKg gPncYyRmsBm6G0QiHru1NDJy dEwbQY6zuTZeLFrhHc4hkAgfyE qlSV4cJISaadfhu020PaOyo7ok ZDUczUCrDNcoRMD3A83zv4R0 VSVmPWTtNXK0aOU9nU6rwYjtbf ogbGVmdDsgdmVydGljYWwtYWxp E590IVHlyAprLxLruYavfhBc QXlqEGg7P3TzAlvxrFB+PC90YW BeLZ70fZAjpERxg3dklTt6JiWz SSZrPBW6lCcfLCaaa1ZcHRMd H02goLVku2E2UXFagLzwbMThTh NhyST4yP3fBCzhcgutu5ihpwih Kzcsh5bgnk14sR17Z79vAFha JJTvBYIkQBLyTDAhzKgfhr6rsP 9wIi8+EZTksSZ2uEC7xM1sFPIn KjM5QNjyD220NgEnyKSzVmic y1sqw8ihsKu1NzN3PJWvunJujF onSDE6u8SaQx05Z17eGYjsSFNe AKZpQNDcUAHhbPvgog4xlQ0o Ii8+CBDymBT8cAO4vN5tYuUkBz P7WHvvJ421BeWqiFKpFlzhA92s G9QtlTZ+IKAqEec7CYBiwOqv AM4dfZObUKmyBj7uQOY9GbFyUp LlRVdfG8DzLOVfccxzzqcidUF9 CLCxRYPilH74Wf1dcDudIJAi eYHPdH8kdmitn1tixskhOvOeJK DyLBp4NSm0YXBgpAjeKbSpJEH7 LgQ0BNS2pGMdvL6tsPsedhol dO7xM6YuFCZpssjpNl52cX7qAs AcDkC7NRbwCai+WXJTRJ8SDdug WnDNZaIFCZUBPF59ZZ13fKVw c8B9bFB2C0GeGBUlfueafblvcN O2CIVgWPEmoA48sAPwJSinXy2d w2X5p829ZJOhMBIcxS17Vf7a eUdmEVFasKAZxK3frcfli5gwyp dhWuEoFDGlOOr1LDz3UIWdwBbo XxLpDBO7JfH7LDC7mQMqzH1o mLxgmwmztV7nElk+MDIvMDQvMT s1BedixJY+VGZbHAB0oRgnHOqi JGLagK5jYEVtS9x9EdKtMzF9 JGcnZ9DrDDBmxsrqAd00xF2eGi LjByA4WXogG7LkdqR4MWArkJKs EEcjSCS1M85lk6J4QEKeKXVa NVE1vFE7sX8rxZmowwgwaWYtlR ankjBdzJqdTCnzYUqdQ107EIUh pOutYoceCHckEFXrIE89EN06 cDJkt4U4oCD3Z8NrOVZwnkhrre tjuNF9RVEuYIAuyU02xQAxTInp Ey2nh4F4g056HMSoWXFheQ05 Jt9ulXqsJQTpnITEzJ9xbogyv8 umpbrrIvHoZZCaEMq0TSu4HQAy dYazUyItEAP5MyB6PFS9gSXx hL6vwIwqwqginC9aLbc+TWFsZT wvdGQ+RMBrLOC6cXleIVcfLCEh fH6rFDDbJ2v5UnCbWjK1AYmt E1MwPFJjeemuCi71aZ1iMxYhCv R4UGduM1HlgbI3GCFwnFTxKRxm JEU1V96rt8Q3XXWtSXKkUEA5 sIJ0qP4vsHpuwuvysNVszFotfo ZlwPvgQIozZVnrR964DWUrtZeb Nn92qNSpiUatxjY6S1PoRpnx dHI+JI89QPIdUH82pMAwgTAsi5 tznKc9LzXbEGAzQAF4qJjaXZpu z3FpDPQvI29biONui8C7TCRu fVoxcWZcSxRtbBK0zO9aVWgxnr etl2opndipJfqvl4nksy86tQ60 T64lWUflCZKiUJKqSBTzYVAm uHzezi9bzZ7aLy0+DZAzjJZ3pX I8cL0bHiDaDxH6YRveO254DnFi uYFgHzrpn1nkn7znbFr8AaRu VLKxjtXcjUsvGPZ4k6FhQq05W0 9sIHdpZHRoPSIyMCUiIHZhbGln er1xuB3yAj8+MI5mg4qhti87 aN95wHQ+WJFcPRP4qOrxYLhdJI JbxZ3jVPutYjY8PTLoCxZilU93 qWEoERwxXi6jnFwyeUofTK8o NYWosxwep180GbBax6spWYLzgB LeBWydTGE5Z58rd5M9JVUfHDZt UFH5oYB5yA5upVxhivimtKTh tIpghtKrgNflDYaoZIlbW743ZG OtoMptQcUbwSZiX4aaddKSUW9m OjwvdGQ+MPUdXHX2yBezPMgo UCRviO4yEFNgR6y4TlRqBuN3CP mvT8ImkxO7THNclYSsZJLwmZAA lT1ohyobd3mhwfuwQuFqELBo RSa4AGk4ZAUcpYvgRpIfHTM6Jd J0GPU1mBIorS6xyCcmvyzfiR3a Oyc+RklOOjwvdGQ+PHRkIHN0 wPylLXfpBPKpzD7sRABcR4j7Qq RrToV3XBqgX2MhgqQ2VGVvbNBj NFUfyTWXrR6dokufg1yqjtky AhBmVDPxZHt1DYk8XOCzlZdjIe PrBRF5GgE8CPW2rMKptP0yiGgl oixfrI0yOrp+TVJOOjwvdGQ+ NIZyCRM1aMcfQUvkDVAswC4qLT NqS3e6OoJjFaC4OZqvP3ZwzxP6 ZRWlpCNmIWNljUNHaY0kynng r6cuokahTxRnDEYhVEr2RZl0CQ AvwJasZrXmLFB6TpX4CUU0qRIl cI4dlDhhzfdtwN8pXeb+UGF5 PRV8BQ95UP26A7UdOeogcNJucN U+PHRhYmxlIHdpZHRoPScxMDAl StLmwOosLN3eBd1iRYBhEKJv bGxhcHNl (more content not included)... [facility] Consultation Noteon 09-21-19 Consultation Note [id number]#1.00CD:127 [facility] Lab Reportson 09-20-2022 Lab Reports [id number]#1.00CD:127 [facility] RAD - Ultrasound Reporton RAD - Ultrasound Report [id number]#1.00CD:127 [facility] Outside Recordson 09-16-2022 Outside Records [id number]#1.00CD:127 [facility] Auto Diffon 09-14-2022 Basophils/100 WBC (Bld) 0.5 % Normal 0.0-2.0 [facility] Comment on above: Order Comment: Order Added by Discern Expert. Performed By: #### 2 [id number], [id number], [id number], [id number], [id number] #### [facility] [address] [place] [address] Basophils/Leukocytes Auto (Bld) [Pure # fraction] 0.0 E9/L Normal 0.0-0.2 [facility] Comment on above: Order Comment: Order Added by Discern Expert. Performed By: #### 2 841391, [id number], 1775993, [id number], [id number] #### [facility] [address] [place] [address] Eosinophils/100 WBC (Bld) 3.2 % Normal 0.0-8.0 [facility] Comment on above: Order Comment: Order Added by Discern Expert. Performed By: #### 2 580952, 02531490, 3936682, [id number], [id number] #### [facility] [address] [place] [address] Eosinophils/Leukocytes Auto (Bld) [Pure # fraction] 0.2 E9/L Normal 0.0-0.5 [facility] Comment on above: Order Comment: Order Added by Discern Expert. Performed By: #### 2 946946, 61076985, 1250720, 47022070, [id number] #### [facility] [address] [place] [address] Lymphocytes/100 WBC (Bld) 17.6 % Normal 14.0-50.0 [facility] Comment on above: Order Comment: Order Added by Discern Expert. Performed By: #### 2 246175, 25465809, 6527752, [id number], 7883963 #### [facility] [address] [place] [address] Lymphocytes/Leukocytes Auto (Bld) [Pure # fraction] 0.9 E9/L Low 1.0-4.0 [facility] Comment on above: Order Comment: Order Added by Discern Expert. Performed By: #### 2 490386, 15777877, 7214904, 90685862, 6068448 #### [facility] [address] [place] [address] Monocytes/100 WBC (Bld) 10.2 % Normal 4.0-14.0 [facility] Comment on above: Order Comment: Order Added by Discern Expert. Performed By: #### 2 491044, [id number], 3074300, 57358966, 4428092 #### [facility] [address] [place] [address]252 Monocytes/Leukocytes Auto (Bld) [Pure # fraction] 0.5 E9/L Normal 0.2-1.0 [facility] Comment on above: Order Comment: Order Added by Discern Expert. Performed By: #### 2 950782, 92405053, 0680513, 55135769, 5886709 #### [facility] [address] [place] [address] Neutrophils/100 WBC (Bld) 68.5 % Normal 36.0-75.0 [facility] Comment on above: Order Comment: Order Added by Discern Expert. Performed By: #### 2 689431, 63723041, 8555192, 23241083, 1328907 #### [facility] [address] [place] [address] Neutrophils/Leukocytes Auto (Bld) [Pure # fraction] 3.6 E9/L Normal 2.0-7.5 [facility] Comment on above: Order Comment: Order Added by Discern Expert. Performed By: #### 2 990891, 63572904, 9863815, 06664955, 1734269 #### [facility] [address] [place] [address] BMPon 09-14-2022 Anion gap [Moles/Vol] 10 mmol/L Normal 6-16 [facility] Comment on above: Performed By: #### 2 444663, 23002685, 8491504, 53952717, 0320011 #### [facility] [address] [place] [address] Calcium [Mass/Vol] 8.6 mg/dL Low 8.9-11.1 [facility] Comment on above: Performed By: #### 2 313821, 01686152, 4651238, 06449669, 4039196 #### [facility] [address] [place] [address] Chloride [Moles/Vol] 108 mmol/L Normal 101-111 [facility] Comment on above: Performed By: #### 2 387437, 55881622, 4237811, 04949124, 7390243 #### [facility] [address] [place] [address] CO2 [Moles/Vol] 23 mmol/L Normal 21-31 [facility] Comment on above: Performed By: #### 2 084261, 58816032, 4252353, 63742530, 8108840 #### [facility] [address] [place] [address] Creatinine [Mass/Vol] 2.1 mg/dL High 0.5-1.3 [facility] Comment on above: Performed By: #### 2 101608, 20581951, 9386994, 97356543, 3323387 #### [facility] [address] [place] [address] Glucose [Mass/Vol] 89 mg/dL Normal 55-199 [facility] Comment on above: Result Comment: If t his glucose result represents a fasting glucose, interpretation should refer to the following reference range: 55-99 mg/dL Performed By: #### 2 881059, 56175637, 6319420, 57568929, 5399954 #### [facility] [address] [place] [address] Potassium [Moles/Vol] 4.1 mmol/L Normal 3.5-5.3 [facility] Comment on above: Performed By: #### 2 138483, 08392533, 9062419, 94400210, 3161579 #### [facility] [address] [place] [address] Sodium [Moles/Vol] 137 mmol/L Normal 135-145 [facility] Comment on above: Performed By: #### 2 694384, 73368443, 8315401, 47874126, 3776334 #### [facility] [address] [place] [address] Urea nitrogen [Mass/Vol] 26 mg/dL High 5-21 [facility] Comment on above: Performed By: #### 2 327641, 24863454, 4596914, 09217906, 1868247 #### [facility] [address] [place] [id number] Urea nitrogen/Creatinine [Mass ratio] 12 No Units Normal 10-20 [facility] Comment on above: Performed By: #### 2 166431, 56737804, 1765157, 41936381, 6340402 #### [facility] [address] [id number] CBC w/ Auto Diffon 3 Erythrocyte distribution width (RBC) [Ratio] 14.0 % Normal 10.9-14.2 [facility] Comment on above: Performed By: #### 2 589233, 52447006, 8979062, 70828614, 7060085 #### [facility] [address] [place], [place] [id number] Hematocrit (Bld) [Volume fraction] 31.6 % Low 37.7-49.0 [facility] Comment on above: Performed By: #### 2 456874, 76216172, 6571261, 33046317, 6560707 #### [facility] [address] [id number] Hemoglobin (Bld) [Mass/Vol] 10.9 g/dL Low 13.5-17.5 [facility] Comment on above: Performed By: #### 2 427496, 06853163, 0026881, 03029507, 1769341 #### [facility] [address] [place] [address] MCH (RBC) [Entitic mass] 33.0 pg Normal 27.0-34.0 [facility] Comment on above: Performed By: #### 2 750931, 61506653, 3934063, 95969654, 2249397 #### [facility] [address] [place] [address] MCHC (RBC) [Mass/Vol] 34.5 g/dL Normal 31.4-36.0 [facility] Comment on above: Performed By: #### 2 504965, 28845559, 9947532, 59775990, 4163254 #### [facility] [address] [place] [address] MCV (RBC) [Entitic vol] 95.8 fL Normal 80.0-100.0 [facility] Comment on above: Performed By: #### 2 083657, 78665136, 0715607, 40563537, 2451359 #### [facility] [address] [place] [address] Platelet mean volume (Bld) [Entitic vol] 8.9 fL Normal 6.4-10.8 [facility] Comment on above: Performed By: #### 2 708819, 37272260, 1984068, 47982732, 2407251 #### [facility] [address] [place] [address] Platelets (Bld) [#/Vol] 151.0 E9/L Normal 150.0-500. 0 [facility] Comment on above: Performed By: #### 2 505495, 14696533, 8366824, 92753156, 6784355 #### [facility] [address] [place] [address] RBC (Bld) [#/Vol] 3.3 E12/L Low 4.3-5.9 [facility] Comment on above: Performed By: #### 2 858878, 84460602, 0129490, 55985109, 0133519 #### [facility] [address] [place] [address] WBC corrected for nucl RBC Auto (Bld) [#/Vol] 5.3 E9/L Normal 4.0-11.0 [facility] Comment on above: Performed By: #### 2 712260, 28626445, 0736004, 81767983, 3898552 #### [facility] [address] [place] [address] Consent for Treatmenton 08-26 Consent for Treatment [id number]:127 Normal [facility] PT & PTTon 09-14-2022 aPTT Coag (PPP) [Time] 29.7 second(s) Normal 25.1-36.5 [facility] Comment on above: Result Comment: Para [...] the same coagulation reagent and instrumentation as [facility]. Currently there are no coagulation studies available worldwide for children to 14 days, and no normal ranges. Heparin therapeutic range (represented by Anti-Factor Xa activity of 0.2 - 0.4 U/mL) corresponds to PTT of 56.6 - 109.0 sec. Performed By: #### 2 546843, 12603905, 1435546, 45439872, 4004896 #### [facility] [address] [place] [address] INR Coag (PPP) [Relative time] 1.0 {INR} Invalid Interpretation Code [facility] Comment on above: Result Comment: INR results are specifically intended to assess patients stabilized on long-term Anticoagulation therapy suggested INR?s ?Less Intensive Anticoagulation? 2.0 ? 3.0 Conventional Range 3.0 ? 4.5 Performed By: #### 2 845831, 99014439, 1759251, 68852843, 5284828 #### [facility] [address] [place] [address] PT Coag (PPP) [Time] 11.7 second(s) Normal 9.4-12.5 [facility] Comment on above: Result Comment: 15 [...] the same coagulation reagent and instrumentation as [facility]. Currently there are no coagulation studies available worldwide for children to 14 days, and no normal ranges. Performed By: #### 2 881292, 18202137, 9564611, 86144835, 1368075 #### [facility] [address] [place] [address] PTH INTACTon 09-14-2022 PTH, Intact 51 pg/mL Normal 15-65 [facility] Comment on above: Performed By: #### T SH, LIPID, T4, FT3, CMP #### [facility] [address] [place], [place] [address] Dr. Alicia Patel UA With Cult Reflexon 2022 Bacteria LM Ql (Urine sed) TRACE Normal Trace [facility] Comment on above: Performed By: #### 2 324687, 32028203, 9198413, 34599502, 4191930 #### [facility] [address] [place] [address] Bilirubin Ql (U) Negative Normal Negative [facility] Comment on above: Performed By: #### 2 945345, 10548668, 6206534, 13008062, 4331167 #### [facility] [address] [place] [address] Clarity (U) CLOUDY Abnormal Clear [facility] Comment on above: Performed By: #### 2 281852, 05573568, 5435068, 58455723, 4079647 #### [facility] [address] [place] [address] Color (U) YELLOW Normal Yellow [facility] Comment on above: Performed By: #### 2 104134, 10583876, 3187212, 93322164, 2645157 #### [facility] [address] [place] [address] Epithelial cells.squamous LM.HPF (Urine sed) [#/Area] 0-2 Normal 0-2 [facility] Comment on above: Performed By: #### 2 265841, 86770143, 3852942, 58286768, 0093136 #### [facility] [address] [place] [id number] Glucose Test strip (U) [Mass/Vol] Negative Normal Negative [facility] Comment on above: Performed By: #### 2 130764, 50008346, 8031809, 58970534, 8055549 #### [facility] [address] [place] [address] Hemoglobin Ql (U) 3+ Abnormal Negative [facility] Comment on above: Performed By: #### 2 052261, 44626799, 4071823, 94328020, 2971027 #### [facility] [address] [place] [address] Ketones (U) [Mass/Vol] Negative Normal Negative Fi [facility] Comment on above: Performed By: #### 2 051232, 89819291, 6359303, 21542043, 0176978 #### [facility] [address] [place] [address] [place].plasma/[place] .RBC (Bld) [Mass ratio] >30 Abnormal 0-3 [facility] Comment on above: Performed By: #### 2 795007, 55967678, 4363743, 19329301, 4994092 #### [facility] [address] [place] [address] Mucus Ql (Urine sed) TRACE Normal [facility] Comment on above: Performed By: #### 2 059827, 51872634, 6332414, 66481383, 5705899 #### [facility] [address] [place] [address] Nitrite Ql (U) Negative Normal Negative [facility] Comment on above: Performed By: #### 2 791730, 33134912, 6133488, 22076888, 2968609 #### [facility] [address] [place] [address] pH (U) 6.0 [pH] Invalid Interpretation Code 5.0-9.0 [facility] Comment on above: Performed By: #### 2 482196, 65144974, 8446896, 89826375, 2362346 #### [facility] [address] [place] [address] Protein (U) [Mass/Vol] 2+ Abnormal Negative Fi [facility] Comment on above: Performed By: #### 2 851913, 35962762, 5290280, 62980372, 1231739 #### [facility] [address] [place] [address] Specific gravity (U) [Rel density] 1.025 Invalid Interpretation Code 1.005-1.03 0 [facility] Comment on above: Performed By: #### 2 821834, 48496021, 7082444, 43856413, 4038247 #### [facility] [address] [place] [address] Type of Urine collection method Clean Catch Normal [facility] Comment on above: Performed By: #### 2 310046, 77715789, 7321056, 11388182, 7823381 #### [facility] [address] [place] [address] Urobilinogen Qn (U) 0.2 {Wil'U}/dL Normal 0.0-1.0 [facility] Comment on above: Performed By: #### 2 170037, 43614403, 9005485, 12577461, 5027562 #### [facility] [address] [place] [address] WBC Auto Ql (U) TRACE Abnormal Negative [facility] Comment on above: Performed By: #### 2 683950, 18302704, 4631141, 27497191, 3386915 #### [facility] [address] [place] [address] WBC casts LM.LPF (Urine sed) [#/Area] 0-3 Normal [facility] Comment on above: Performed By: #### 2 422895, 19516294, 3797422, 07443160, 7249448 #### [facility] [address] [place] [address] WBC LM.HPF (Urine sed) [#/Area] 0-5 Normal 0-5 [facility] Comment on above: Performed By: #### 2 665925, 75850435, 0504876, 53268523, 4492701 #### [facility] [address] [place] [address] XR Chest 2 Viewson 3 XR Chest [...] mGy = na DAP = na Normal [facility] eGFRon 09-14-2022 GFR/1.73 sq M.predicted among blacks MDRD (S/P/Bld) [Vol rate/Area] 37 mL/min/1.73 m2 Low >=59 [facility] Comment on above: Order Comment: Order added by Discern Expert. Result Comment: eGFR is race adjusted. AA=. Performed By: #### 2 206753, 17026581, 7985526, 74396618, 8504979 #### [facility] [address] [place] [address] GFR/1.73 sq M.predicted among non-blacks MDRD (S/P/Bld) [Vol rate/Area] 31 mL/min/1.73 m2 Low >=59 [facility] Comment on above: Order Comment: Order added by Discern Expert. Result Comment: Fashion Adviser christa kidney disease could be indicated at eGFR's of less than 60 mL/min/1.73m2. Kidney failure is indicated at less than 15 mL/min/1.73m2. Performed By: #### 2 579863, 47089534, 4107994, 28470525, 8973104 #### [facility] [address] [place] [address] HEMOGRAM AND PLATELon 2022 Hematocrit (Bld) [Volume fraction] 32.9 % Critically low 42.0-54.0 [facility] Comment on above: Performed By: #### T SH, LIPID, T4, FT3, CMP #### [facility] [address] [place] [address] Dr. Alicia Patel Hemoglobin (Bld) [Mass/Vol] 10.9 g/dL Critically low 14.0-18.[address] [facility] Comment on above: Performed By: #### T SH, LIPID, T4, FT3, CMP #### [facility] [address] [place] [address] Dr. Alicia Patel MCH (RBC) [Entitic mass] 32.6 pg Normal 25.9-34.[address] [facility] Comment on above: Performed By: #### T SH, LIPID, T4, FT3, CMP #### [facility] [address] [place] [address] Dr. Alicia Patel MCHC (RBC) [Mass/Vol] 33.1 g/dL Normal 29.9-35.[address] [facility] Comment on above: Performed By: #### T SH, LIPID, T4, FT3, CMP #### [facility] [address] [place] [address] Dr. Alicia Patel MCV (RBC) [Entitic vol] 98.5 fL Critically high 80.0-94.0 [facility] Comment on above: Performed By: #### T SH, LIPID, T4, FT3, CMP #### [facility] [address] [place] [address] Dr. Alicia Patel PLT 145 103/ul Critically low 150-450 [facility] Comment on above: Performed By: #### T SH, LIPID, T4, FT3, CMP #### [facility] [address] [place] [address] Dr. Alicia Patel RBC 3.34 106/ul Critically low 4.70-6.10 [facility] Comment on above: Performed By: #### T SH, LIPID, T4, FT3, CMP #### [facility] [address] [place] [address] Dr. Alicia Patel WBC 5.1 103/ul Normal 4.0-11.0 [facility] Comment on above: Performed By: #### T SH, LIPID, T4, FT3, CMP #### [facility] [address] [place] [address] Dr. Alicia Patel MAGNESIUMon 09-13-2022 Magnesium [Mass/Vol] 1.5 mg/dL Critically low 1.8-2.4 [facility] Comment on above: Performed By: #### T SH, LIPID, T4, FT3, CMP #### [facility] [address] [place] [address] Dr. Alicia Patel RENAL FUNCTION PANELon 09-13 Albumin [Mass/Vol] 3.5 g/dL Normal 3.4-5.0 [facility] Comment on above: Performed By: #### U RTPCR #### [facility] [address] [place] [address] Dr. Alicia Patel Calcium [Mass/Vol] 8.4 mg/dL Critically low 8.5-10.1 Th [facility] Comment on above: Performed By: #### U RTPCR #### [facility] [address] [place] [address] [address] Alicia Patel Chloride [Moles/Vol] 107 mmol/L Normal 98-107 [facility] Comment on above: Performed By: #### U RTPCR #### [facility] [address] [place] [address] [address] Alicia Patel CO2 [Moles/Vol] 25.1 mmol/L Normal 21.0-32.0 [facility] Comment on above: Performed By: #### U RTPCR #### [facility] [address] [place] [address] [address] Alicia Patel Creatinine [Mass/Vol] 1.96 mg/dL Critically high 0.70-1.30 [facility] Comment on above: Performed By: #### U RTPCR #### [facility] [address] [place] [address] Dr. Alicia Patel EGFR-AF MEXICAN 40 mL/min/1.73m2 Critically low >=60 [facility] Comment on above: Performed By: #### U RTPCR #### [facility] [address] [place] [address] Dr. Alicia Patel EGFR-NON AF MEXICAN 33 mL/min/1.73m2 Critically low >=60 [facility] Comment on above: Performed By: #### U RTPCR #### [facility] [address] [place] [address] Dr. Alicia Patel Glucose [Mass/Vol] 151 mg/dL Critically high 74-106 [facility] Comment on above: Performed By: #### U RTPCR #### [facility] [address] [place] [address] [address] Alicia Patel Phosphate [Mass/Vol] 3.5 mg/dL Normal 2.6-4.7 [facility] Comment on above: Performed By: #### U RTPCR #### [facility] [address] [place] [address] [address] Alicia Patel Potassium [Moles/Vol] 4.3 mmol/L Normal 3.5-5.1 [facility] Comment on above: Performed By: #### U RTPCR #### [facility] [address] [place] [address] Dr. Alicia Patel Sodium [Moles/Vol] 142 mmol/L Normal 136-145 [facility] Comment on above: Performed By: #### U RTPCR #### [facility] [address] [place] [address] Dr. Alicia Patel Urea nitrogen [Mass/Vol] 23.0 mg/dL Critically high 7.0-18.0 [facility] Comment on above: Performed By: #### U RTPCR #### [facility] [address] [place] [address] Dr. Alicia Patel UA RANDOM W/MICROSCOPICon BACTERIA TRACE Abnormal NONE SEEN [facility] Comment on above: Performed By: #### T SH, LIPID, T4, FT3, CMP #### [facility] [address] [place] [address] Dr. Alicia Patel Bilirubin Ql (U) Negative Normal NEGATIVE [facility] Comment on above: Performed By: #### T SH, LIPID, T4, FT3, CMP #### [facility] [address] [place] [address] Dr. Alicia Patel CAST NONE SEEN Normal NONE SEEN [facility] Comment on above: Performed By: #### T SH, LIPID, T4, FT3, CMP #### [facility] [address] [place] [address] Dr. Alicia Patel Clarity (U) CLEAR Normal CLEAR [facility] Comment on above: Performed By: #### T SH, LIPID, T4, FT3, CMP #### [facility] [address] [place] [address] Dr. Alicia Patel Color (U) LT. YELLOW Normal YELLOW [facility] Comment on above: Performed By: #### T SH, LIPID, T4, FT3, CMP #### [facility] [address] [place] [address] Dr. Alicia Patel Crystals LM Nom (Urine sed) NONE SEEN Normal NONE SEEN [facility] Comment on above: Performed By: #### T SH, LIPID, T4, FT3, CMP #### [facility] [address] [place] [address] [address] Alicia Patel Epithelial cells LM Ql (Urine sed) RARE Normal NONE SEEN /RARE [facility] Comment on above: Performed By: #### T SH, LIPID, T4, FT3, CMP #### [facility] [address] [place] [address] [address] Alicia Patel Glucose Ql (U) 500 mg/dl Abnormal NEGATIVE [facility] Comment on above: Performed By: #### T SH, LIPID, T4, FT3, CMP #### [facility] [address] [place] [address] [address] Alicia Patel Hemoglobin Ql (U) LARGE Abnormal NEGATIVE [facility] Comment on above: Performed By: #### T SH, LIPID, T4, FT3, CMP #### [facility] [address] [place] [address] Dr. Alicia Patel Ketones Ql (U) Negative Normal NEGATIVE [facility] Comment on above: Performed By: #### T SH, LIPID, T4, FT3, CMP #### [facility] [address] [place] [address] Dr. Alicia Patel LEUKOCYTES Negative Normal NEGATIVE [facility] Comment on above: Performed By: #### T SH, LIPID, T4, FT3, CMP #### [facility] [address] [place] [address] [address] Alicia Patel MUCOUS NONE SEEN Normal NONE SEEN [facility] Comment on above: Performed By: #### T SH, LIPID, T4, FT3, CMP #### [facility] [address] [place] [address] [address] Alicia Patel Nitrite Ql (U) Negative Normal NEGATIVE [facility] Comment on above: Performed By: #### T SH, LIPID, T4, FT3, CMP #### [facility] [address] [place] [address] [address] Alicia Patel pH (U) 6.0 [pH] Normal 5-[address] [facility] Comment on above: Performed By: #### T SH, LIPID, T4, FT3, CMP #### [facility] [address] [place] [address] Dr. Alicia Patel RBC 20-50 Abnormal 0-[address] [facility] Comment on above: Performed By: #### T SH, LIPID, T4, FT3, CMP #### [facility] [address] [place] [address] Dr. Alicia Patel SPEC GRAVITY 1.020 Normal 1.005-<=1. [address] [facility] Comment on above: Performed By: #### T SH, LIPID, T4, FT3, CMP #### [facility] [address] [place] [address] Dr. Alicia Patel UA PROTEIN 100 mg/dl Abnormal NEGATIVE/ TRACE [facility] Comment on above: Performed By: #### T SH, LIPID, T4, FT3, CMP #### [facility] [address] [place] [address] Dr. Alicia Patel Urobilinogen Qn (U) 0.2 {Wil'U}/dL Normal 0.2 - 1. 0 [facility] Comment on above: Performed By: #### T SH, LIPID, T4, FT3, CMP #### [facility] [address] [place] [address] Dr. Alicia Patel WBC 0-2 Abnormal NONE SEEN [facility] Comment on above: Performed By: #### T SH, LIPID, T4, FT3, CMP #### [facility] [address] [place] [address] Dr. Alicia Patel URIC ACID SERUMon 09-13-2022 Urate [Mass/Vol] 5.8 mg/dL Normal 3.5-7.[address] [facility] Comment on above: Performed By: #### U RTPCR #### [facility] [address] [place] [address] Dr. Alicia Patel URINE T PROTEIN CREAT RATIOo n 09-13-2022 Protein (U) [Mass/Vol] 122.4 mg/dL Critically high <=12.[address] [facility] Comment on above: Performed By: #### U RTPCR #### [facility] [address] [place] [address] Dr. Alicia Patel UR PROT CREAT RAT 1.38 Normal [facility] Comment on above: Performed By: #### U RTPCR #### [facility] [address] [place] [address] [address] Alicia Patel URINE CREAT 88.74 mg/dL Normal 20.00-300. 00 [facility] Comment on above: Performed By: #### U RTPCR #### [facility] [address] [place] [address] [address] Alicia Patel VITAMIN D 25 OHon 09-13-2022 VIT D 25-OH 58.0 ng/mL Normal [facility] Comment on above: Performed By: #### T SH, LIPID, T4, FT3, CMP #### [facility] [address] [place] [address] Dr. Alicia Patel VIT D RANGES SEE BELOW Normal [facility] Comment on above: Result Comment: <20 ng/mL Vit D deficient 20 - <30 ng/mL Vit D insufficient 30 - 100 ng/mL Vit D sufficient >100 ng/mL Potential Toxicity Performed By: #### T SH, LIPID, T4, FT3, CMP #### [facility] [address] [place] [address] Dr. Alicia Patel Pre-Certification Formon Pre-Certification Form [id number]#[id number]:127 Normal [facility] RAD - Ultrasound Reporton RAD - Ultrasound Report [id number]#[id number]:127 Normal [facility] Screenson 09-07-2022 Screens [id number]#[id number]:12 7 Normal [facility] Patient Educationon 09-07-19 23 Patient Education [...] these instructions at home: Medicines ? Take ypzb-zys-pnvvpit and prescription medicines only as told by [...] 11/29/2008 Document Revised: 10/30/2019 Document Reviewed: 10/30/2019 [employer] Patient Education ? 2019 [employer]. Isamar Carrillo [facility] Urology Office/Clinic Noteon 09-06-2022 Urology Office/Clinic Note Chief Complaint Pt is here for [facility] ER f/u HPI Staff Victorino is a 82 y.o. male here for hospital follow up. Pt was seen at [facility]. Previous Dx: acute kidney failure, BPH w/ urinary obstruction, elevated PSA, ED, flank pain, hydronephrosis, kidney stone, prostate cancer, ureteral stone, urinary retention. S/P cysto/stent removal done on 04/15/20, cysto/bilateral dilation ureteral/stent done on 03/11/20, TURP done on 08/01/19, biopsy of prostate done on 07/04/19, cysto/RG/laser done on 06/27/19. Pt presented to [facility] on 08/11/22 for shortness of breath. Pt presented to [facility] later that evening on 08/11/22 for abdominal [...] the prior CT scan performed at the [facility]. The options include both nephroscopic/ureteroscopic approach [...] off asp (more content not included)... Normal [facility] Comment on above: Result Comment: Elec [...] TYLER MONSIVAIS Date: 2022-09-01 09:[address] [facility] CT chest wo con high reson 0 08-31-2022 CT chest wo con high res [facility] [place] [address] [place] [id number] Scan Report Signed Patient: Victorino Smyth MR#: [id number] : 1940 Acct:[id number] Age/Sex: 82 / M ADM Date: 08/31/22 Loc: CT Room: Type: [facility] Attending Dr: Hiral Interiano MD Copies to: Hiral Interiano MD Ordering Provider: Hiral Interiano MD Date of Service: 08/31/22 CT/CT chest wo con high res: follow up left lower lung nodule CT CHEST WITHOUT IV CONTRAST: High-resolution protocol. CLINICAL HISTORY: Lung nodule seen on outside imaging. COMPARISON: CT abdomen and pelvis from [facility] 08/11/2022 TECHNIQUE: Spiral images were obtained [...] Perez Jr., DManoharOManohar08/31/2022 3:25 PM Dictation Location: [place] [address] Transcribed By: [facility] 08/31/22 1525 Dictated By: Ifeanyi Perez Jr, DO 08/31/22 1520 Signed By: 08/31/22 1525 Normal [facility] PSA, FREE AND TOTAL RATIOon 08-25-2022 % Free PSA 13.7 % Normal [facility] Comment on above: Result Comment: The [...] T SH, LIPID, T4, FT3, CMP #### [facility] [address] [place] [address] Dr. Alicia Patel Prostate specific Ag [Mass/Vol] 6.2 ng/mL Critically high 0.0-4.0 [facility] Comment on above: Result Comment: Dwight JUAREZ methodology. . According to the [place] [employer], Serum PSA should decrease and [...] T SH, LIPID, T4, FT3, CMP #### [facility] [address] [place] [address] [address] Alicia Patel PSA, Free 0.85 ng/mL Normal N/A [facility] Comment on above: Result Comment: Dwight linares ECLIA methodology. Performed By: #### T SH, LIPID, T4, FT3, CMP #### [facility] [address] [place] [address] Dr. Alicia DAVALOS BLD IMMUNO SCREENon 07-29 OCCULT BLOOD Negative Normal NEGATIVE [facility] Comment on above: Performed By: #### T SH, LIPID, T4, FT3, CMP #### [facility] [address] [place] [address] Dr. Alicia Patel CBC AUTO DIFFon 08-21-2022 BASO # 0.0 103/ul Normal 0.0-0.1 [facility] Comment on above: Performed By: #### U RTPCR #### [facility] [address] [place] [address] Dr. Alicia Patel Basophils/100 WBC (Bld) 0.3 % Normal 0.2-2.0 [facility] Comment on above: Performed By: #### U RTPCR #### [facility] [address] [place] [address] Dr. Alicia Patel EO # 0.2 103/ul Normal 0.0-0.7 [facility] Comment on above: Performed By: #### U RTPCR #### [facility] [address] [place] [address] Dr. Alicia Patel Eosinophils/100 WBC (Bld) 3.2 % Normal 0.9-7.0 [facility] Comment on above: Performed By: #### U RTPCR #### [facility] [address] [place] [address] Dr. Alicia Patel Erythrocyte distribution width (RBC) [Ratio] 12.9 % Normal 11.0-15.0 [facility] Comment on above: Performed By: #### U RTPCR #### [facility] [address] [place] [address] Dr. Alicia Patel Hematocrit (Bld) [Volume fraction] 35.4 % Critically low 42.0-54.0 [facility] Comment on above: Performed By: #### U RTPCR #### [facility] [facility] [address] [place] [address] Dr. Alicia Patel Hemoglobin (Bld) [Mass/Vol] 11.7 g/dL Critically low 14.0-18.0 [facility] Comment on above: Performed By: #### U RTPCR #### [facility] [address] [place] [address] Dr. Alicia Patel IG # 0.08 10e3/ul Critically high 0.00-0.03 [facility] Comment on above: Performed By: #### U RTPCR #### [facility] [address] [place] [address] Dr. Alicia Patel IG % 1.2 % Critically high 0.0-0.5 [facility] Comment on above: Performed By: #### U RTPCR #### [facility] [address] [place] [address] Dr. Alicia Patel LYMPH # 1.1 103/ul Critically low 1.2-3.8 [facility] Comment on above: Performed By: #### U RTPCR #### [facility] [address] [place] [address] Dr. Alicia Patel Lymphocytes/100 WBC (Bld) 16.6 % Critically low 20.5-60.0 [facility] Comment on above: Performed By: #### U RTPCR #### [facility] [address] [place] [address] Dr. Alicia Patel MANUAL DIFF REQ NO Normal [facility] Comment on above: Performed By: #### U RTPCR #### [facility] [address] [place] [address] Dr. Alicia Patel MCH (RBC) [Entitic mass] 32.4 pg Normal 25.9-34.[address] [facility] Comment on above: Performed By: #### U RTPCR #### [facility] [address] [place] [address] Dr. Alicia Patel MCHC (RBC) [Mass/Vol] 33.1 g/dL Normal 29.9-35.[address] [facility] Comment on above: Performed By: #### U RTPCR #### [facility] [address] [address] [address] Alicia Patel MCV (RBC) [Entitic vol] 98.1 fL Critically high 80.0-94.0 [facility] Comment on above: Performed By: #### U RTPCR #### [facility] [address] [place] [address] Dr. Alicia Patel MONO # 0.6 103/ul Normal 0.3-0.[address] [facility] Comment on above: Performed By: #### U RTPCR #### [facility] [address] [place] [address] Dr. Alicia Patel Monocytes/100 WBC (Bld) 8.8 % Normal 1.7-12.0 [facility] Comment on above: Performed By: #### U RTPCR #### [facility] [address] [place] [address] Dr. Alicia Patel NEUT # 4.8 103/ul Normal 1.4-6.5 [facility] Comment on above: Performed By: #### U RTPCR #### [facility] [address] [place] [address] Dr. Alicia Patel Neutrophils/100 WBC (Bld) 69.9 % Normal 43.0-75.0 [facility] Comment on above: Performed By: #### U RTPCR #### [facility] [address] [place] [address] Dr. Alicia Patel Platelet mean volume (Bld) [Entitic vol] 10.4 fL Normal 9.5-13.[address] [facility] Comment on above: Performed By: #### U RTPCR #### [facility] [address] [place] [address] Dr. Alicia Patel PLT 200 103/ul Normal 150-[address] [facility] Comment on above: Performed By: #### U RTPCR #### [facility] [address] [place] [address] Dr. Alicia Patel RBC 3.61 106/ul Critically low 4.70-6.[address] [facility] Comment on above: Performed By: #### U RTPCR #### [facility] [address] [address] [address] Alicia Patel WBC 6.8 103/ul Normal 4.0-11.0 [facility] Comment on above: Performed By: #### U RTPCR #### [facility] [address] [place] [address] Dr. Alicia Patel FREE T3on 08-21-2022 FREE T3 1.91 pg/mlL Critically low 2.18-3.98 [facility] Comment on above: Performed By: #### T SH, LIPID, T4, FT3, CMP #### [facility] [address] [place] [address] Dr. Alicia Patel GLYCOHEMOGLOBIN A1Con 2022 ADA RECOMMENDATION SEE BELOW Normal [facility] Comment on above: Result Comment: ADA RECOMMENDED LIMIT 4.0 - 6.0 ADA THERAPEUTIC TARGET < 7.0 ACTION SUGGESTED > 7.0 Performed By: #### T SH, LIPID, T4, FT3, CMP #### [facility] [address] [place] [address] Dr. Alicia Patel Glucose [Mass/Vol] 194 mg/dL Normal [facility] Comment on above: Performed By: #### T SH, LIPID, T4, FT3, CMP #### [facility] [address] [place] [address] Dr. Alicia Patel HbA1c (Bld) [Mass fraction] 8.4 % Critically high 4.5-6.2 [facility] Comment on above: Performed By: #### T SH, LIPID, T4, FT3, CMP #### [facility] [address] [place] [address] Dr. Alicia Patel LIPID PROFILEon 08-21-2022 CHOL-HDL RATIO NORM SEE BELOW Normal [facility] Comment on above: Result Comment: 3.3 - 4.4 LOW RISK 4.4 - 7.1 AVERAGE RISK 7.1 - 11.0 MODERATE RISK >11.0 HIGH RISK Performed By: #### T SH, LIPID, T4, FT3, CMP #### [facility] [address] [place] [address] Dr. Alicia Patel Cholesterol [Mass/Vol] 120 mg/dL Normal <=[address] [facility] Comment on above: Performed By: #### T SH, LIPID, T4, FT3, CMP #### [facility] [address] [address] [address] Alicia Patel Cholesterol in HDL [Mass/Vol] 30 mg/dL Critically low 40-60 [facility] Comment on above: Performed By: #### T SH, LIPID, T4, FT3, CMP #### [facility] [address] [address] [address] Alicia Patel Cholesterol in LDL [Mass/Vol] 59.8 mg/dL Normal [facility] Comment on above: Performed By: #### T SH, LIPID, T4, FT3, CMP #### [facility] [address] [place] [address] Dr. Alicia Patel Cholesterol.total/Chol esterol in HDL [Mass ratio] 4.0 {ratio} Normal [facility] Comment on above: Performed By: #### T SH, LIPID, T4, FT3, CMP #### [facility] [address] [place] [address] Dr. Alicia Patel HDL NORMAL > or = 60 mg/dl - LO W CARDIOVASCULAR RISK <40 mg/dl - HIGH CARDIOVASCULAR RISK Normal [facility] Comment on above: Performed By: #### T SH, LIPID, T4, FT3, CMP #### [facility] [address] [place] [address] Dr. Alicia Patel LDL CALC NORMAL SEE BELOW Normal [facility] Comment on above: Result Comment: <100 mg/dl OPTIMAL 100 - 129 mg/dl NEAR OR ABOVE OPTIMAL 130 - 159 mg/dl BORDERLINE HIGH 160 - 189 mg/dl HIGH >190 mg/dl VERY HIGH Performed By: #### T SH, LIPID, T4, FT3, CMP #### [facility] [address] [place] [address] Dr. Alicia Patel Triglyceride [Mass/Vol] 151 mg/dL Critically high <=150 [facility] Comment on above: Performed By: #### T SH, LIPID, T4, FT3, CMP #### [facility] [address] [address] [address] Alicia Patel VLDL CALC 30.2 mg/dL Normal [facility] Comment on above: Performed By: #### T SH, LIPID, T4, FT3, CMP #### [facility] [address] [place] [address] Dr. Alicia Patel PROF 14(COMP METB)on 023 Albumin [Mass/Vol] 3.3 g/dL Critically low 3.4-5.0 [facility] Comment on above: Performed By: #### T SH, LIPID, T4, FT3, CMP #### [facility] [address] [place] [address] Dr. Alicia Patel Albumin/Globulin [Mass ratio] 0.9 {ratio} Normal [facility] Comment on above: Performed By: #### T SH, LIPID, T4, FT3, CMP #### [facility] [address] [place] [address] Dr. Alicia Patel ALP [Catalytic activity/Vol] 79 U/L Normal 46-116 [facility] Comment on above: Performed By: #### T SH, LIPID, T4, FT3, CMP #### [facility] [address] [address] [address] Alicia Patel ALT [Catalytic activity/Vol] 61 U/L Normal 16-63 [facility] Comment on above: Performed By: #### T SH, LIPID, T4, FT3, CMP #### [facility] [address] [address] [address] Alicia Patel Anion gap [Moles/Vol] 12.6 mmol/L Normal [facility] Comment on above: Performed By: #### T SH, LIPID, T4, FT3, CMP #### [facility] [address] [place] [address] Dr. Alicia Patel AST [Catalytic activity/Vol] 39 U/L Critically high 15-37 [facility] Comment on above: Performed By: #### T SH, LIPID, T4, FT3, CMP #### [facility] [address] [place] [address] Dr. Alicia Patel Bilirubin [Mass/Vol] 0.7 mg/dL Normal 0.2-1.[address] [facility] Comment on above: Performed By: #### T SH, LIPID, T4, FT3, CMP #### [facility] [address] [place] [address] Dr. Alicia Patel Calcium [Mass/Vol] 8.9 mg/dL Normal 8.5-10.[address] [facility] Comment on above: Performed By: #### T SH, LIPID, T4, FT3, CMP #### [facility] [address] [place] [address] Dr. Alicia Patel Chloride [Moles/Vol] 111 mmol/L Critically high 98-[address] [facility] Comment on above: Performed By: #### T SH, LIPID, T4, FT3, CMP #### [facility] [address] [place] [address] Dr. Alicia Patel CO2 [Moles/Vol] 24.0 mmol/L Normal 21.0-32.[address] [facility] Comment on above: Performed By: #### T SH, LIPID, T4, FT3, CMP #### [facility] [address] [place] [address] Dr. Alicia Patel Creatinine [Mass/Vol] 1.80 mg/dL Critically high 0.70-1.[address] [facility] Comment on above: Performed By: #### T SH, LIPID, T4, FT3, CMP #### [facility] [address] [place] [address] Dr. Alicia Patel EGFR-AF MEXICAN 44 mL/min/1.73m2 Critically low >=[address] [facility] Comment on above: Performed By: #### T SH, LIPID, T4, FT3, CMP #### [facility] [address] [place] [address] Dr. Alicia Patel EGFR-NON AF MEXICAN 36 mL/min/1.73m2 Critically low >=[address] [facility] Comment on above: Performed By: #### T SH, LIPID, T4, FT3, CMP #### [facility] [address] [place] [address] Dr. Alicia Patel Globulin (S) [Mass/Vol] 3.5 g/dL Normal [facility] Comment on above: Performed By: #### T SH, LIPID, T4, FT3, CMP #### [facility] [address] [address] [address] Alicia Patel Glucose [Mass/Vol] 118 mg/dL Critically high 74-106 T [facility] Comment on above: Performed By: #### T SH, LIPID, T4, FT3, CMP #### [facility] [address] [address] [address] Alicia Patel Potassium [Moles/Vol] 4.6 mmol/L Normal 3.5-5.1 [facility] Comment on above: Performed By: #### T SH, LIPID, T4, FT3, CMP #### [facility] [address] [place] [address] Dr. Alicia Patel Protein [Mass/Vol] 6.8 g/dL Normal 6.4-8.[address] [facility] Comment on above: Performed By: #### T SH, LIPID, T4, FT3, CMP #### [facility] [address] [place] [address] Dr. Alicia Patel Sodium [Moles/Vol] 143 mmol/L Normal 136-145 [facility] Comment on above: Performed By: #### T SH, LIPID, T4, FT3, CMP #### [facility] [address] [place] [address] Dr. Alicia Patel Urea nitrogen [Mass/Vol] 31.0 mg/dL Critically high 7.0-18.0 [facility] Comment on above: Performed By: #### T SH, LIPID, T4, FT3, CMP #### [facility] [address] [place] [address] Dr. Alicia Patel Urea nitrogen/Creatinine [Mass ratio] 17.2 mg/mg Normal [facility] Comment on above: Performed By: #### T SH, LIPID, T4, FT3, CMP #### [facility] [address] [place] [address] Dr. Alicia Patel T4on 08-21-2022 T4 [Mass/Vol] 7.70 ug/dL Normal 4.50-12.10 [facility] Comment on above: Performed By: #### T SH, LIPID, T4, FT3, CMP #### [facility] [address] [place] [address] Dr. Alicia aPtel TSHon 08-21-2022 TSH 1.138 uIU/mL Normal 0.358-3.74 0 [facility] Comment on above: Performed By: #### T SH, LIPID, T4, FT3, CMP #### [facility] [address] [place] [address] Dr. Alicia Patel RENAL FUNCTION PANELon 08-18 Albumin [Mass/Vol] 3.3 g/dL Critically low 3.4-5.0 [facility] Comment on above: Performed By: #### U RTPCR #### [facility] [address] [place] [address] Dr. Alicia Patel Calcium [Mass/Vol] 8.3 mg/dL Critically low 8.5-10.1 [facility] Comment on above: Performed By: #### U RTPCR #### [facility] [address] [place] [address] Dr. Alicia Patel Chloride [Moles/Vol] 109 mmol/L Critically high 98-107 [facility] Comment on above: Performed By: #### U RTPCR #### [facility] [address] [place] [address] Dr. Alicia Patel CO2 [Moles/Vol] 22.1 mmol/L Normal 21.0-32.0 [facility] Comment on above: Performed By: #### U RTPCR #### [facility] [address] [place] [address] Dr. Alicia Patel Creatinine [Mass/Vol] 2.14 mg/dL Critically high 0.70-1.30 [facility] Comment on above: Performed By: #### U RTPCR #### [facility] [address] [place] [address] Dr. Alicia Patel EGFR-AF MEXICAN 36 mL/min/1.73m2 Critically low >=60 [facility] Comment on above: Performed By: #### U RTPCR #### [facility] [address] [address] [address] Alicia Patel EGFR-NON AF MEXICAN 30 mL/min/1.73m2 Critically low >=60 [facility] Comment on above: Performed By: #### U RTPCR #### [facility] [address] [address] [address] Alicia Patel Glucose [Mass/Vol] 102 mg/dL Normal 74-106 [facility] Comment on above: Performed By: #### U RTPCR #### [facility] [address] [address] [address] Alicia Patel Phosphate [Mass/Vol] 3.1 mg/dL Normal 2.6-4.7 [facility] Comment on above: Performed By: #### U RTPCR #### [facility] [address] [address] [address] Alicia Patel Potassium [Moles/Vol] 3.9 mmol/L Normal 3.5-5.1 [facility] Comment on above: Performed By: #### U RTPCR #### [facility] [address] [address] [address] Alicia Patel Sodium [Moles/Vol] 141 mmol/L Normal 136-145 [facility] Comment on above: Performed By: #### U RTPCR #### [facility] [address] [address] [address] Alicia Patel Urea nitrogen [Mass/Vol] 41.0 mg/dL Critically high 7.0-18.0 [facility] Comment on above: Performed By: #### U RTPCR #### [facility] [address] [address] [address] Alicia Patel ED Note-Physicianon 08-17-19 ED Note-Physician [id number]#1.00CD:127 Normal [facility] RAD - CT Reporton 08-17-2022 RAD - CT Report [id number]#1.00CD:127 [facility] RAD - MISCon 08-17-2022 RAD [facility] [id number]#1.00CD:127 [facility] MIS [id number]#1.00CD:127 [facility] Insurance Correspondence Off iceon 08-16-2022 Insurance Correspondence Office [id number]#1.00CD:127 [facility] Basic Metabolic Panelon 07-28 Creatinine Clr Calc Pharmacy [facility] Comment on above: Result Comment: PERF ORMED BY: [place] [address] PATHOLOGIST BARTENDER DIANDRA LACY M.D. Performed By: #### P T #### [address] Estimated GFR ( Yana 21 [facility] Comment on above: Result Comment: GFR estimated reference range: According to KDOQI guidelines, <60 ml/min/1.73m2 is sufficient to diagnose a patient with chronic kidney disease. Performed By: #### P T #### [address] Estimated GFR (Non- Am 17 [facility] Comment on above: Performed By: #### P T #### [address] Estimated glomerular filtrat ion rate (GFR) non- AmericanOrdered By: Hiral Interiano on 08-15-2022 GFR/1.73 sq M.predicted among non-blacks MDRD (S/P/Bld) [Vol rate/Area] 17 mL/Min [facility] Glucose Glucometer (BldC) [M ass/Vol]Ordered By: Hiral Interiano on 08-15-2022 Glucose [Mass/Vol] 135 mg/dL [facility] Comment on above: Random Glucose Refer ence Range is dependent on time and content of last meal. Glucose of more than 200 mg/dL in a nonstressed, ambulatory subject supports the diagnosis of Diabetes Mellitus. Glucose Poct Glucometerson 0 08-15-2022 Glucose [Mass/Vol] 135 mg/dL Normal [facility] Comment on above: Result Comment: Angie om Glucose Reference Range is dependent on time and content of last meal. Glucose of more than 200 mg/dL in a nonstressed, ambulatory subject supports the diagnosis of Diabetes Mellitus. PERFORMED BY: [place] [address] PATHOLOGIST BARTENDER DIANDRA LACY M.D. Performed By: #### G LULS ####Point of Care testing, Glucose [Mass/Vol] 163 mg/dL Normal [facility] Comment on above: Result Comment: [facility] Glucose Reference Range is dependent on time and content of last meal. Glucose of more than 200 mg/dL in a nonstressed, ambulatory subject supports the diagnosis of Diabetes Mellitus. PERFORMED BY: [place] [address] PATHOLOGIST BARTENDER DIANDRA LACY M.D. Performed By: #### P T #### [facility] [address] [place] [address] No Panel InformationOrdered By: Hiral Interiano on 08-15-2022 Estimated GFR () 21 mL/Min [facility] Comment on above: GFR estimated refere nce range: According to KDOQI guidelines, <60 ml/min/1.73m2 is sufficient to diagnose a patient with chronic kidney disease. Pharmacy Creatinine Clearance (Chem 21.94 [facility] Serum or plasma anion gap de terminationOrdered By: Hiral Interiano on 08-15-2022 Anion gap [Moles/Vol] 10.3 mmol/L Normal 6.0-15.0 [facility] Comment on above: Performed By: #### P T #### [facility] [address] [place] [address] Serum or plasma calcium alpesh urement (mass/volume)Ordered By: Hiral Interiano on 08-15-2022 Calcium [Mass/Vol] 7.7 mg/dL Low 8.2-10.2 [facility] Comment on above: Performed By: #### P T #### [facility] [address] Serum or plasma chloride adina surement (moles/volume)Ordered By: Hiral nIteriano on 08-15-2022 Chloride [Moles/Vol] 112 mmol/L Normal 95-114 [facility] Comment on above: Performed By: #### P T #### [address] Serum or plasma creatinine m easurement with calculation of estimated glomerular filtrOrdered By: Hiral Interiano on 08-15-2022 Creatinine [Mass/Vol] 3.46 mg/dL Significan t change up 0.64-1.27 [facility] Comment on above: Delta: 6.60 on 08/14-432 Performed By: #### P T #### [address] Serum or plasma glucose alpesh urement (mass/volume)Ordered By: Hiral Interiano on 08-15-2022 Glucose [Mass/Vol] 140 mg/dL High 70-100 [facility] Comment on above: ADA recommended refe rence rangeRandom Glucose Reference Range is dependent on time and content of last meal. Glucose of more than 200 mg/dL in a nonstressed, ambulatory subject supports the diagnosis of Diabetes Mellitus. Result Comment: Angie om Glucose Reference Range is dependent on time and content of last meal. Glucose of more than 200 mg/dL in a nonstressed, ambulatory subject supports the diagnosis of Diabetes Mellitus. ADA recommended reference range Performed By: #### P T #### [facility] [address] Serum or plasma potassium me asurement (moles/volume)Ordered By: Hiral Interiano on 08-15-2022 Potassium [Moles/Vol] 3.8 mmol/L Normal 3.5-5.1 [facility] Comment on above: Performed By: #### P T #### [address] Serum or plasma sodium measu rement (moles/volume)Ordered By: Hiral Interiano on 08-15-2022 Sodium [Moles/Vol] 140 mmol/L Normal 136-146 [facility] Comment on above: Performed By: #### P T #### [address] Serum or plasma total carbon dioxide measurement (moles/volume)Ordered By: Hiral Interiano on 08-15-2022 CO2 [Moles/Vol] 21.5 mmol/L Low 22.0-30.0 [facility] Comment on above: Performed By: #### P T #### [address] Serum or plasma urea nitroge n measurement (mass/volume)Ordered By: Hiral Interiano on 08-15-2022 Urea nitrogen [Mass/Vol] 45 mg/dL High 9-23 [facility] Comment on above: Performed By: #### P T #### [address] Aerobic Cultureon 08-14-2022 Aerobic Culture ORGANISM: Rosanna al bicans (O:CANALB) Quantity of Growth Light Growth Gram Stain Result 3+ Epithelial Cells 2+ White Blood Cells 3+ Gram Positive Cocci 2+ Gram Negative Bacilli PERFORMED BY: [place] [address] PATHOLOGIST BARTENDER DIANDRA LACY M.D. [facility] Comment on above: Performed By: #### B MP #### [address] Basic Metabolic Panelon 07-28 Anion gap [Moles/Vol] 13.0 mmol/L Normal 6.0-15.0 [facility] Comment on above: Performed By: #### C BC, BMP ####[facility] [address] [place] [address] Calcium [Mass/Vol] 7.3 mg/dL Low 8.2-10.2 [facility] Comment on above: Performed By: #### C BC, BMP ####[facility] [place] [address] [facility] Chloride [Moles/Vol] 109 mmol/L Normal 95-114 [facility] Comment on above: Performed By: #### C BC, BMP ####[facility] [place] [address] [facility] CO2 [Moles/Vol] 21.9 mmol/L Low 22.0-30.0 [facility] Comment on above: Performed By: #### C BC, BMP ####[facility] [address] [place] [address] [facility] Creatinine [Mass/Vol] 6.60 mg/dL Significan t change up 0.64-1.27 [facility] Comment on above: Performed By: #### C BC, BMP ####[address] [place] [address] [facility] Creatinine Clr Calc Pharmacy 11.49 [facility] Comment on above: Result Comment: PERF ORMED BY: [facility] [address] [id number] PATHOLOGIST BARTENDER DIANDRA LACY M.D. Performed By: #### C BC, BMP ####[address] [place] [address] [facility] Estimated GFR ( Yana 10 [facility] Comment on above: Result Comment: GFR estimated reference range: According to KDOQI guidelines, <60 ml/min/1.73m2 is sufficient to diagnose a patient with chronic kidney disease. Performed By: #### C BC, BMP ####[facility] [place] [address] [facility] Estimated GFR (Non- Am 8 [facility] Comment on above: Performed By: #### C BC, BMP ####[address] [place] [address] [facility] Glucose [Mass/Vol] 140 mg/dL High 70-100 [facility] Comment on above: Result Comment: Angie Glucose Reference Range is dependent on time and content of last meal. Glucose of more than 200 mg/dL in a nonstressed, ambulatory subject supports the diagnosis of Diabetes Mellitus. ADA recommended reference range Performed By: #### C BC, BMP ####[facility] [place] [address] [facility] Potassium [Moles/Vol] 3.9 mmol/L Normal 3.5-5.1 [facility] Comment on above: Performed By: #### C BC, BMP ####[place] [address] [place] [address] [facility] Sodium [Moles/Vol] 140 mmol/L Normal 136-146 [facility] Comment on above: Performed By: #### C BC, BMP ####[place] [address] [place] [address] [facility] Urea nitrogen [Mass/Vol] 61 mg/dL High 9- [facility] Comment on above: Performed By: #### C BC, BMP ####[place] [id number] [place] Basophils Auto (Bld) [#/Vol] Ordered By: Hiral Interiano on 08-14-2022 Basophils (Bld) [#/Vol] 0.0 10*3/uL 0.0-0.2 [facility] Basophils/100 WBC Auto (Bld) Ordered By: Hiral Interiano on 08-14-2022 Basophils/100 WBC (Bld) 0.2 % . [facility] Complete Blood Count Auto Di ffon 08-14-2022 Basophils (Bld) [#/Vol] 0.0 10*3/uL Normal 0.0-0.2 [facility] Comment on above: Result Comment: PERF ORMED BY: [facility] [address] [place] [id number] PATHOLOGIST BARTENDER DIANDRA LACY M.D. Performed By: #### C BC, BMP ####[place] [address] [place] [address] [facility] Basophils/100 WBC (Bld) 0.2 % Normal . [facility] Comment on above: Performed By: #### C BC, BMP ####[facility] Eosinophils (Bld) [#/Vol] 0.1 10*3/uL Normal 0.0-0.45 [facility] Comment on above: Performed By: #### C RUDOLPH, BMP ####[address] Eosinophils/100 WBC (Bld) 1.0 % Normal . [facility] Comment on above: Performed By: #### C BC, BMP ####[address] Erythrocyte distribution width (RBC) [Ratio] 13.5 % Normal 12.0-14.8 [facility] Comment on above: Performed By: #### C RUDOLPH, BMP ####[address] Hematocrit (Bld) [Volume fraction] 35.4 % Low 38.8-50.0 [facility] Comment on above: Performed By: #### C RUDOLPH, BMP ####[address] Hemoglobin (Bld) [Mass/Vol] 12.0 g/dL Low 13.0-17.0 [facility] Comment on above: Performed By: #### C RUDOLPH, BMP ####[address] Lymphocytes (Bld) [#/Vol] 0.6 10*3/uL Low 1.00-4.8 [facility] Comment on above: Performed By: #### C BC, BMP ####[address] Lymphocytes/100 WBC (Bld) 7.8 % Normal . [facility] Comment on above: Performed By: #### C BC, BMP ####[address] MCH (RBC) [Entitic mass] 33.0 pg Normal 27.5-35.2 [facility] Comment on above: Performed By: #### C BC, BMP ####[address] MCV (RBC) [Entitic vol] 97.3 fL Normal 83.5-101 [facility] Comment on above: Performed By: #### C RUDOLPH, BMP ####[address] Mean Corpuscular HGB Conc 33.9 g/dL Normal 32.5-35.6 [facility] Comment on above: Performed By: #### C RUDOLPH, BMP ####[address] Monocytes (Bld) [#/Vol] 0.8 10*3/uL Normal 0.0-0.8 [facility] Comment on above: Performed By: #### C RUDOLPH, BMP ####[address] Monocytes/100 WBC (Bld) 11.4 % Normal . [facility] Comment on above: Performed By: #### C RUDOLPH, BMP ####[address] Neutrophils (Bld) [#/Vol] 5.9 10*3/uL Normal 1.8-7.7 [facility] Comment on above: Performed By: #### C RUDOLPH, BMP ####[address] Neutrophils/100 WBC (Bld) 79.6 % Normal . [facility] Comment on above: Performed By: #### C RUDOLPH, BMP ####[address] NRBC% 0.1 /100{WBC} Normal 0-0.5 [facility] Comment on above: Performed By: #### C RUDOLPH, BMP ####[place] [id number] [facility] Platelet mean volume (Bld) [Entitic vol] 8.4 fL Normal 6.6-10.1 [facility] Comment on above: Performed By: #### C RUDOLPH, BMP ####[address] [place] [address] [place] Platelets (Bld) [#/Vol] 121 10*3/uL Low 150-450 [facility] Comment on above: Performed By: #### C BC, BMP ####[facility] RBC (Bld) [#/Vol] 3.64 10*6/uL Low 3.90-5.[address] [facility] Comment on above: Performed By: #### C BC, BMP ####[facility] WBC (Bld) [#/Vol] 7.4 10*3/uL Normal 4.1-10.5 [facility] Comment on above: Performed By: #### C RUDOLPH, BMP ####[place] [address] Eosinophils Auto (Bld) [#/Vo l]Ordered By: Hiral Interiano on 08-14-2022 Eosinophils (Bld) [#/Vol] 0.1 10*3/uL 0.0-0.45 [facility] Eosinophils/100 WBC Auto (Bl d)Ordered By: Hiral Interiano on 08-14-2022 Eosinophils/100 WBC (Bld) 1.0 % . [facility] Erythrocyte distribution wid th Auto (RBC) [Ratio]Ordered By: Hiral Interiano on 08-14-2022 Erythrocyte distribution width (RBC) [Ratio] 13.5 % 12.0-14.8 [facility] Glucose Poct Glucometerson 0 08-14-2022 Commemt1 Glu2: Cleaned Meter Normal [facility] Comment on above: Result Comment: PERF ORMED BY: [facility] [address] [place] [address] PATHOLOGIST BARTENDER DIANDRA LACY M.D. Performed By: #### P T #### [facility] [address] Glucose [Mass/Vol] 140 mg/dL Normal [facility] Comment on above: Result Comment: Angie om Glucose Reference Range is dependent on time and content of last meal. Glucose of more than 200 mg/dL in a nonstressed, ambulatory subject supports the diagnosis of Diabetes Mellitus. Performed By: #### P T #### [facility] [address] [place] [address] Glucose [Mass/Vol] 125 mg/dL Normal [facility] Comment on above: Result Comment: Angie om Glucose Reference Range is dependent on time and content of last meal. Glucose of more than 200 mg/dL in a nonstressed, ambulatory subject supports the diagnosis of Diabetes Mellitus. PERFORMED BY: [place] [address] PATHOLOGIST BARTENDER DIANDRA LACY M.D. Performed By: #### P T #### [facility] [address] [place] [address] Glucose [Mass/Vol] 140 mg/dL Normal [facility] Comment on above: Result Comment: Angie om Glucose Reference Range is dependent on time and content of last meal. Glucose of more than 200 mg/dL in a nonstressed, ambulatory subject supports the diagnosis of Diabetes Mellitus. PERFORMED BY: [place] [address] PATHOLOGIST BARTENDER DIANDRA LACY M.D. Performed By: #### G LULS ####Point of Care testing, Commemt1 Glu2: Cleaned Meter Normal [facility] Comment on above: Result Comment: PERF ORMED BY: [place] [address] PATHOLOGIST BARTENDER DIANDRA LACY M.D. Performed By: #### G LULS ####Point of Care testing, Glucose [Mass/Vol] 175 mg/dL Normal [facility] Comment on above: Result Comment: Angie om Glucose Reference Range is dependent on [...] Cocci 2+ Gram Negative Bacilli PERFORMED BY: [place] [address] PATHOLOGIST BARTENDER DIANDRA LACY M.D. Normal [facility] Comment on above: Performed By: #### B MP #### [address] Hematocrit Auto (Bld) [Volum e fraction]Ordered By: Hiral Interiano on 08-14-2022 Hematocrit (Bld) [Volume fraction] 35.4 % 38.8-50.0 [facility] Hemoglobin [Mass/volume] in BloodOrdered By: Hiral Interiano on 08-14-2022 Hemoglobin (Bld) [Mass/Vol] 12.0 g/dL 13.0-17.0 [facility] Leukocytes [#/volume] correc ike for nucleated erythrocytes in Blood by Automated counOrdered By: Hiral Interiano on 08-14-2022 WBC corrected for nucl RBC Auto (Bld) [#/Vol] 7.4 10*3/uL 4.1-10.5 [facility] Lymphocytes Auto (Bld) [#/Vo l]Ordered By: Hiral Interiano on 08-14-2022 Lymphocytes (Bld) [#/Vol] 0.6 10*3/uL 1.00-4.8 [facility] Lymphocytes/100 WBC Auto (Bl d)Ordered By: Hiral Interiano on 08-14-2022 Lymphocytes/100 WBC (Bld) 7.8 % . [facility] MCH Auto (RBC) [Entitic mass ]Ordered By: Hiral Interiano on 08-14-2022 MCH (RBC) [Entitic mass] 33.0 pg 27.5-35.2 [facility] MCHC Auto (RBC) [Mass/Vol]Or dered By: Hiral Interiano on 08-14-2022 MCHC (RBC) [Mass/Vol] 33.9 g/dL 32.5-35.6 [facility] MCV Auto (RBC) [Entitic vol] Ordered By: Hiral Interiano on 08-14-2022 MCV (RBC) [Entitic vol] 97.3 fL 83.5-101 [facility] Monocytes Auto (Bld) [#/Vol] Ordered By: Hiral Interiano on 08-14-2022 Monocytes (Bld) [#/Vol] 0.8 10*3/uL 0.0-0.8 [facility] Monocytes/100 WBC Auto (Bld) Ordered By: Hiral Interiano on 08-14-2022 Monocytes/100 WBC (Bld) 11.4 % . [facility] Neutrophils Auto (Bld) [#/Vo l]Ordered By: Hiral Interiano on 08-14-2022 Neutrophils (Bld) [#/Vol] 5.9 10*3/uL 1.8-7.7 [facility] Neutrophils/100 WBC Auto (Bl d)Ordered By: Hiral Interiano on 08-14-2022 Neutrophils/100 WBC (Bld) 79.6 % . [facility] No Panel InformationOrdered By: Hiral Interiano on 08-14-2022 Bedside Glucose Comment Glu2: cleaned meter [facility] Nucleated erythrocytes [Pres ence] in Blood by Automated countOrdered By: Hiral Interiano on 08-14-2022 Nucleated RBC Auto Ql (Bld) 0.1 /100{WBC} 0-0.5 [facility] Platelet mean volume Auto (B ld) [Entitic vol]Ordered By: Hiral Interiano on 08-14-2022 Platelet mean volume (Bld) [Entitic vol] 8.4 fL 6.6-10.1 [facility] Platelets Auto (Bld) [#/Vol] Ordered By: Hiral Interiano on 08-14-2022 Platelets (Bld) [#/Vol] 121 10*3/uL 150-450 [facility] RBC Auto (Bld) [#/Vol]Ordere d By: Hiral Interiano on 08-14-2022 RBC (Bld) [#/Vol] 3.64 10*6/uL 3.90-5.[address] [facility] WBC Auto (Bld) [#/Vol]Ordere d By: Hiral Interiano on 08-14-2022 WBC (Bld) [#/Vol] 7.4 10*3/uL 4.1-10.5 [facility] Albumin Levelon 08-13-2022 Albumin [Mass/Vol] 3.0 g/dL Low 3.2-5.5 [facility] Comment on above: Result Comment: PERF ORMED BY: [place] [address] PATHOLOGIST BARTENDER DIANDRA LACY M.D. Performed By: #### B MP #### [address] Basic Metabolic Panelon 07-28 Anion gap [Moles/Vol] 18.4 mmol/L High 6.0-15.0 [facility] Comment on above: Order Comment: REDRA W Performed By: #### B MP #### [address] Calcium [Mass/Vol] 7.0 mg/dL Low 8.2-10.2 [facility] Comment on above: Order Comment: REDRA W Performed By: #### B MP #### [address] Chloride [Moles/Vol] 97 mmol/L Normal 95-114 [facility] Comment on above: Order Comment: REDRA W Performed By: #### B MP #### [facility] [address] [place] [address] CO2 [Moles/Vol] 24.5 mmol/L Normal 22.0-30.0 [facility] Comment on above: Order Comment: REDRA W Performed By: #### B MP #### [facility] [address] [place] [address] [place] Creatinine [Mass/Vol] 10.74 mg/dL Significan t change up 0.64-1.27 [facility] Comment on above: Order Comment: REDRA W Performed By: #### B MP #### [facility] [address] [place] [address] [place] Creatinine Clr Calc Pharmacy 7.06 [facility] Comment on above: Order Comment: REDRA W Result Comment: PERF ORMED BY: [place] [address] PATHOLOGIST BARTENDER DIANDRA LACY M.D. Performed By: #### B MP #### [place] [address] [place] Estimated GFR ( Yana 6 [facility] Comment on above: Order Comment: REDRA W Result Comment: GFR estimated reference range: According to KDOQI guidelines, <60 ml/min/1.73m2 is sufficient to diagnose a patient with chronic kidney disease. Performed By: #### B MP #### [place] [address] [place] Estimated GFR (Non- Am 5 [facility] Comment on above: Order Comment: REDRA W Performed By: #### B MP #### [address] Glucose [Mass/Vol] 85 mg/dL Normal 70-100 [facility] Comment on above: Order Comment: REDRA W Result Comment: Angie om Glucose Reference Range is dependent on time and content of last meal. Glucose of more than 200 mg/dL in a nonstressed, ambulatory subject supports the diagnosis of Diabetes Mellitus. ADA recommended reference range Performed By: #### B MP #### [place] [address] [place] Potassium [Moles/Vol] 4.9 mmol/L Normal 3.5-5.1 [facility] Comment on above: Order Comment: REDRA W Performed By: #### B MP #### [facility] [address] [place], [place] [id number] [place] Sodium [Moles/Vol] 135 mmol/L Low 136-146 [facility] Comment on above: Order Comment: REDRA W Performed By: #### B MP #### [place] [address] [place] Urea nitrogen [Mass/Vol] 72 mg/dL Significant change up 03-19 [facility] Comment on above: Order Comment: REDRA W Performed By: #### B MP #### [address] Body fluid albumin measureme nt (mass/volume)Ordered By: Alicia Perea on 08-13-2022 Albumin (Body fld) [Mass/Vol] 3.0 g/dL 3.2-5.5 [facility] Complete Blood Count Auto Di ffon 08-13-2022 Basophils (Bld) [#/Vol] 0.0 10*3/uL Normal 0.0-0.2 [facility] Comment on above: Result Comment: PERF ORMED BY: [place] [address] PATHOLOGIST BARTENDER DIANDRA LACY M.D. Performed By: #### C BC #### [address] Basophils/100 WBC (Bld) 0.5 % Normal . [facility] Comment on above: Performed By: #### C BC #### [address] Eosinophils (Bld) [#/Vol] 0.1 10*3/uL Normal 0.0-0.45 [facility] Comment on above: Performed By: #### C BC #### [address] Eosinophils/100 WBC (Bld) 0.9 % Normal . [facility] Comment on above: Performed By: #### C BC #### [address] Erythrocyte distribution width (RBC) [Ratio] 13.7 % Normal 12.0-14.8 [facility] Comment on above: Performed By: #### C BC #### [address] Hematocrit (Bld) [Volume fraction] 34.2 % Low 38.8-50.0 [facility] Comment on above: Performed By: #### C BC #### [address] Hemoglobin (Bld) [Mass/Vol] 11.6 g/dL Low 13.0-17.0 [facility] Comment on above: Performed By: #### C BC #### [address] Lymphocytes (Bld) [#/Vol] 0.9 10*3/uL Low 1.00-4.8 [facility] Comment on above: Performed By: #### C BC #### [address] Lymphocytes/100 WBC (Bld) 9.6 % Normal . [facility] Comment on above: Performed By: #### C BC #### [address] MCH (RBC) [Entitic mass] 32.9 pg Normal 27.5-35.2 [facility] Comment on above: Performed By: #### C BC #### [address] MCV (RBC) [Entitic vol] 96.5 fL Normal 83.5-101 [facility] Comment on above: Performed By: #### C BC #### [address] Mean Corpuscular HGB Conc 34.1 g/dL Normal 32.5-35.6 [facility] Comment on above: Performed By: #### C BC #### [address] Monocytes (Bld) [#/Vol] 1.0 10*3/uL High 0.0-0.8 [facility] Comment on above: Performed By: #### C BC #### [address] Monocytes/100 WBC (Bld) 9.8 % Normal . [facility] Comment on above: Performed By: #### C BC #### [address] Neutrophils (Bld) [#/Vol] 7.8 10*3/uL High 1.8-7.7 [facility] Comment on above: Performed By: #### C BC #### [facility] [address] [place] [address] [place] Neutrophils/100 WBC (Bld) 79.2 % Normal . [facility] Comment on above: Performed By: #### C BC #### [facility] [address] NRBC% 0.1 /100{WBC} Normal 0-0.5 [facility] Comment on above: Performed By: #### C BC #### [facility] [address] Platelet mean volume (Bld) [Entitic vol] 8.7 fL Normal 6.6-10.1 [facility] Comment on above: Performed By: #### C BC #### [facility] [address] [place] [address] [place] Platelets (Bld) [#/Vol] 129 10*3/uL Low 150-450 [facility] Comment on above: Performed By: #### C BC #### [facility] [address] [place] [address] [place] RBC (Bld) [#/Vol] 3.54 10*6/uL Low 3.90-5.[address] [facility] Comment on above: Performed By: #### C BC #### [facility] [address] [place] [address] [place] WBC (Bld) [#/Vol] 9.9 10*3/uL Normal 4.1-10.5 [facility] Comment on above: Performed By: #### C BC #### [facility] [address] [place] [address] [place] urethrocystogram retroon 08-13-2022 [place] urethrocystogram retro [facility] [address] [place] [address] [place] [address] Fluoroscopy Report Signed Patient: Victorino Smyth MR#: [id number] : 1940 Acct:[id number] Age/Sex: 82 / M ADM Date: 08/11/22 Loc: 4N Room: 3U1652-0 Type: ADM IN Attending Dr: Hiral Interiano [...] Perez Jr., D.OManohar08/13/2022 2:25 PM Dictation Location: [place] [address] Transcribed By: [facility] 08/13/22 142 Dictated By: Ifeanyi Perez Jr, DO 08/13/22 142 Signed By: 08/13/22 142 [facility] Glucose Poct Glucometerson 0 08-13-2022 Commemt1 Glu2: Cleaned Meter [facility] Comment on above: Result Comment: PERF ORMED BY: [place] [address] PATHOLOGIST BARTENDER DIANDRA LACY M.D. Performed By: #### B MP #### [facility] [address] [place] [address] Glucose [Mass/Vol] 91 mg/dL [facility] Comment on above: Result Comment: [facility] Glucose Reference Range is dependent on time and content of last meal. Glucose of more than 200 mg/dL in a nonstressed, ambulatory subject supports the diagnosis of Diabetes Mellitus. Performed By: #### B MP #### [facility] [address] [place] [address] Commemt1 Glu2: Cleaned Meter [facility] Comment on above: Result Comment: PERF ORMED BY: [place] [address] PATHOLOGIST BARTENDER DIANDRA LACY M.D. Performed By: #### G LULS ####Point of Care testing, Glucose [Mass/Vol] 94 mg/dL Normal [facility] Comment on above: Result Comment: [facility] Glucose Reference Range is dependent on time and content of last meal. Glucose of more than 200 mg/dL in a nonstressed, ambulatory subject supports the diagnosis of Diabetes Mellitus. Performed By: #### G JOHANNE ####Point of Care testing, Operative Reporton Operative Report [id number] Normal [facility] A1C with Estimated Average G marianna 08-12-2022 Glucose [Mass/Vol] 212 mg/dL Normal [facility] Comment on above: Result Comment: PERF ORMED BY: [facility] [address] [place] [address] PATHOLOGIST BARTENDER DIANDRA LACY M.D. Performed By: #### B MP #### [facility] [address] HbA1c (Bld) [Mass fraction] 9.0 % High 4.3-5.6 [facility] Comment on above: Result Comment: Incr eased risk for diabetes: 5.7 - 6.4 diabetes: >6.4 glycemic control for adults with diabetes: <7.0 Performed By: #### B MP #### [facility] [address] Basic Metabolic Panelon 07-28 Anion gap [Moles/Vol] 20.6 mmol/L High 6.0-15.0 [facility] Comment on above: Performed By: #### B MP, CBC ####[facility] Calcium [Mass/Vol] 7.1 mg/dL Low 8.2-10.2 [facility] Comment on above: Performed By: #### B MP, CBC ####[facility] [place] [address] [place] Chloride [Moles/Vol] 104 mmol/L Normal 95-114 [facility] Comment on above: Performed By: #### B MP, CBC ####[facility] [place] [address] [place] CO2 [Moles/Vol] 20.2 mmol/L Low 22.0-30.0 [facility] Comment on above: Performed By: #### B MP, CBC ####[place] [address] [place] [address] [facility] Creatinine [Mass/Vol] 15.50 mg/dL Significan t change up 0.64-1.27 [facility] Comment on above: Performed By: #### B MP, CBC ####[place] [address] [place] [address] [place] Creatinine Clr Calc Pharmacy 4.90 [facility] Comment on above: Result Comment: PERF ORMED BY: [facility] [address] [facility] [address] PATHOLOGIST BARTENDER DIANDRA LACY M.D. Performed By: #### B MP, CBC ####[address] [address] [facility] Estimated GFR ( Yana 4 [facility] Comment on above: Result Comment: GFR estimated reference range: According to KDOQI guidelines, <60 ml/min/1.73m2 is sufficient to diagnose a patient with chronic kidney disease. Performed By: #### B MP, CBC ####[address] [address] [facility] Estimated GFR (Non- Am 3 [facility] Comment on above: Performed By: #### B MP, CBC ####[facility] [place] [address] [facility] Glucose [Mass/Vol] 100 mg/dL Significant change down 70-100 [facility] Comment on above: Result Comment: Angie Glucose Reference Range is dependent on time and content of last meal. Glucose of more than 200 mg/dL in a nonstressed, ambulatory subject supports the diagnosis of Diabetes Mellitus. ADA recommended reference range Performed By: #### B MP, CBC ####[address] [address] [place] Potassium [Moles/Vol] 4.8 mmol/L Significan t change down 3.5-5.1 [facility] Comment on above: Performed By: #### B MP, CBC ####[address] Sodium [Moles/Vol] 140 mmol/L Significant change down 136-146 [facility] Comment on above: Performed By: #### B MP, CBC ####[address] Urea nitrogen [Mass/Vol] 133 mg/dL Significant change up - [facility] Comment on above: Performed By: #### B MP, CBC ####[address] Complete Blood Count Auto Di ffon 08-12-2022 Basophils (Bld) [#/Vol] 0.0 10*3/uL Normal 0.0-0.2 [facility] Comment on above: Result Comment: PERF ORMED BY: [facility] [address] [place] [address] PATHOLOGIST BARTENDER DIANDRA LACY M.D. Performed By: #### B MP, CBC ####[address] Basophils/100 WBC (Bld) 0.2 % Normal . [facility] Comment on above: Performed By: #### B MP, CBC ####[address] Eosinophils (Bld) [#/Vol] 0.0 10*3/uL Normal 0.0-0.45 [facility] Comment on above: Performed By: #### B MP, CBC ####[address] Eosinophils/100 WBC (Bld) 0.0 % Normal . [facility] Comment on above: Performed By: #### B MP, CBC ####[address] Erythrocyte distribution width (RBC) [Ratio] 13.6 % Normal 12.0-14.8 [facility] Comment on above: Performed By: #### B MP, CBC ####[address] Hematocrit (Bld) [Volume fraction] 33.6 % Low 38.8-50.0 [facility] Comment on above: Performed By: #### B MP, CBC ####[address] Hemoglobin (Bld) [Mass/Vol] 11.5 g/dL Low 13.0-17.0 [facility] Comment on above: Performed By: #### B MP, CBC ####[address] Lymphocytes (Bld) [#/Vol] 0.6 10*3/uL Low 1.00-4.8 [facility] Comment on above: Performed By: #### B MP, CBC ####[address] Lymphocytes/100 WBC (Bld) 4.4 % Normal . [facility] [facility] Comment on above: Performed By: #### B MP, CBC ####[address] MCH (RBC) [Entitic mass] 32.9 pg Normal 27.5-35.2 [facility] Comment on above: Performed By: #### B MP, CBC ####[address] MCV (RBC) [Entitic vol] 95.9 fL Normal 83.5-101 [facility] Comment on above: Performed By: #### B MP, CBC ####[address] Mean Corpuscular HGB Conc 34.3 g/dL Normal 32.5-35.6 [facility] Comment on above: Performed By: #### B MP, CBC ####[address] Monocytes (Bld) [#/Vol] 1.0 10*3/uL High 0.0-0.8 [facility] Comment on above: Performed By: #### B MP, CBC ####[address] Monocytes/100 WBC (Bld) 7.4 % Normal . [facility] Comment on above: Performed By: #### B MP, CBC ####[address] Neutrophils (Bld) [#/Vol] 11.8 10*3/uL High 1.8-7.7 [facility] Comment on above: Performed By: #### B MP, CBC ####[address] Neutrophils/100 WBC (Bld) 88.0 % Normal . [facility] Comment on above: Performed By: #### B MP, CBC ####[address] NRBC% 0.0 /100{WBC} Normal 0-0.5 [facility] Comment on above: Performed By: #### B MP, CBC ####[address] Platelet mean volume (Bld) [Entitic vol] 8.3 fL Normal 6.6-10.1 [facility] Comment on above: Performed By: #### B MP, CBC ####[address] Platelets (Bld) [#/Vol] 162 10*3/uL Normal 150-450 [facility] Comment on above: Performed By: #### B MP, CBC ####[address] RBC (Bld) [#/Vol] 3.51 10*6/uL Low 3.90-5.[address] [facility] Comment on above: Performed By: #### B MP, CBC ####[address] WBC (Bld) [#/Vol] 13.4 10*3/uL High 4.1-10.[address] [facility] Comment on above: Performed By: #### B MP, CBC ####[facility] [address] [place] [address] [facility] Consultation Noteon 08-12-19 Consultation Note [id number] Normal [facility] Glucose Poct Glucometerson 0 08-12-2022 Glucose [Mass/Vol] 114 mg/dL Normal [facility] Comment on above: Result Comment: [facility] Glucose Reference Range is dependent on time and content of last meal. Glucose of more than 200 mg/dL in a nonstressed, ambulatory subject supports the diagnosis of Diabetes Mellitus. PERFORMED BY: [place] [address] PATHOLOGIST BARTENDER DIANDRA LACY M.D. Performed By: #### G JOHANNE #### Point of Care testing , Glucose [Mass/Vol] 111 mg/dL Normal [facility] Comment on above: Result Comment: [facility] Glucose Reference Range is dependent on time and content of last meal. Glucose of more than 200 mg/dL in a nonstressed, ambulatory subject supports the diagnosis of Diabetes Mellitus. PERFORMED BY: [facility] [address] [place] [address] PATHOLOGIST BARTENDER DIANDRA LACY M.D. Performed By: #### G LULS #### Point of Care testing , Glucose [Mass/Vol] 96 mg/dL Normal [facility] Comment on above: Result Comment: [facility] Glucose Reference Range is dependent on time and content of last meal. Glucose of more than 200 mg/dL in a nonstressed, ambulatory subject supports the diagnosis of Diabetes Mellitus. PERFORMED BY: [place] [address] PATHOLOGIST BARTENDER DIANDRA LACY M.D. Performed By: #### B MP #### [facility] [address] Glucose [Mass/Vol] 91 mg/dL Normal [facility] Comment on above: Result Comment: [facility] om Glucose Reference Range is dependent on time and content of last meal. Glucose of more than 200 mg/dL in a nonstressed, ambulatory subject supports the diagnosis of Diabetes Mellitus. PERFORMED BY: [place] [address] PATHOLOGIST BARTENDER DIANDRA LACY M.D. Performed By: #### B MP #### [facility] [address] [place] [address] Glucose [Mass/Vol] 93 mg/dL Normal [facility] Comment on above: Result Comment: Angie Glucose Reference Range is dependent on time and content of last meal. Glucose of more than 200 mg/dL in a nonstressed, ambulatory subject supports the diagnosis of Diabetes Mellitus. PERFORMED BY: [place] [address] PATHOLOGIST BARTENDER DIANDRA LACY M.D. Performed By: #### P T #### [facility] [address] [place] [address] Commemt1 Glu2: Cleaned Meter Normal [facility] Comment on above: Result Comment: PERF ORMED BY: [place] [address] PATHOLOGIST BARTENDER DIANDRA LACY M.D. Performed By: #### G LULS #### Point of Care testing , Glucose [Mass/Vol] 87 mg/dL Normal [facility] Comment on above: Result Comment: Angie Glucose Reference Range is dependent on time [...] from glycated hemoglobin (Bld) [Mass/Vol] 212 mg/dL [facility] Hemoglobin A1c percentageOrd ered By: Hiral Interiano on 08-12-2022 HbA1c (Bld) [Mass fraction] 9.0 % 4.3-5.6 [facility] Comment on above: Increased risk for d iabetes: 5.7 - 6.4diabetes: >6.4glycemic control for adults with diabetes: <7.0 Anisocytosis LM Ql (Bld)Orde red By: Hiral Interiano on 08-11-2022 Anisocytosis Ql (Bld) Slight [facility] Band form neutrophils/100 WB C Manual cnt (Bld)Ordered By: Hiral Interiano on 08-11-2022 Band form neutrophils/100 WBC (Bld) 1 % 0-5 [facility] Basic Metabolic Panelon 07-28 Anion gap [Moles/Vol] 30.1 mmol/L High 6.0-15.0 [facility] Comment on above: Performed By: #### B MP #### [facility] [address] Calcium [Mass/Vol] 7.2 mg/dL Low 8.2-10.2 [facility] Comment on above: Performed By: #### B MP #### [facility] [address] Chloride [Moles/Vol] 99 mmol/L Normal 95-114 [facility] Comment on above: Performed By: #### B MP #### [facility] [address] [place] [id number] [facility] CO2 [Moles/Vol] 9.3 mmol/L Low 22.0-30.0 [facility] Comment on above: Performed By: #### B MP #### [facility] [address] [place] [address] [place] Creatinine Clr Calc Pharmacy 4.24 Normal [facility] Comment on above: Result Comment: PERF ORMED BY: [place] [address] PATHOLOGIST BARTENDER DIANDRA LACY M.D. Performed By: #### B MP #### [facility] [address] [place] [address] [place] Estimated GFR ( Yana 3 [facility] Comment on above: Result Comment: GFR estimated reference range: According to KDOQI guidelines, <60 ml/min/1.73m2 is sufficient to diagnose a patient with chronic kidney disease. Performed By: #### B MP #### [facility] [address] Estimated GFR (Non- Am 3 [facility] Comment on above: Performed By: #### B MP #### [facility] [address] Glucose [Mass/Vol] 507 mg/dL Off scale high 70-100 [facility] Comment on above: Result Comment: Resu lts called at 1409 on 08/11/22 Random Glucose Reference Range is dependent on time and content of last meal. Glucose of more than 200 mg/dL in a nonstressed, ambulatory subject supports the diagnosis of Diabetes Mellitus. ADA recommended reference range Performed By: #### B MP #### [address] Potassium [Moles/Vol] 7.4 mmol/L Off scale high 3.5-5.1 [facility] Comment on above: Result Comment: Resu lts called at 1409 on 08/11/22 Performed By: #### B MP #### [address] Sodium [Moles/Vol] 131 mmol/L Low 136-146 [facility] Comment on above: Performed By: #### B MP #### [facility] [address] [place] [address] [place] Urea nitrogen [Mass/Vol] 163 mg/dL High 03-19 [facility] Comment on above: Performed By: #### B MP #### [place] [address] [place] Beta Hydroxybuterateon 08-11 Beta Hydroxybuterate 2.40 mmol/L High 0.05-0.27 [facility] Comment on above: Result Comment: PERF ORMED BY: [facility] [address] [place] [address] PATHOLOGIST BARTENDER DIANDRA LACY M.D. Performed By: #### B MP #### [facility] [address] Beta-hydroxybutyric acid adina surementOrdered By: Alicia Perea on 08-11-2022 Beta hydroxybutyrate [Mass/Vol] 2.40 mmol/L 0.05-0.27 [facility] Amie cells [Presence] in Blo od by Light microscopyOrdered By: Hiral Interiano on 08-11-2022 Amie cells LM Ql (Bld) Slight Fi [facility] CARDIAC GUIDO 3-6on 3 CK [Catalytic activity/Vol] 162 U/L Normal 39-308 [facility] Comment on above: Performed By: #### T SH, LIPID, T4, FT3, CMP #### [facility] [address] [address] [address] Alicia Patel CK.MB [Mass/Vol] 5.52 ng/mL Critically high <=3.60 [facility] Comment on above: Performed By: #### T SH, LIPID, T4, FT3, CMP #### [facility] [address] [address] [address] Alicia Patel HSTROP 19.7 pg/mL Normal 4.0-76.1 [facility] Comment on above: Result Comment: CUT- OFF POINTS HAVE BEEN ESTABLISHED BASED ON THE FOURTH UNIVERSAL DEFINITIONS OF MYOCARDIAL INFARCTION. THE UPPER REFERENCE LIMIT (URL) OF TROPONIN, DEFINED THE 99TH PERCENTILE OF cTnI DISTRIBUTION IN A REFERENCE POPULATION, HAS BEEN CONFIRMED THE DECISION THRESHOLD FOR NE DIAGNOSIS. Performed By: #### T SH, LIPID, T4, FT3, CMP #### [facility] [address] [address] [address] Alicia Patel CK [Catalytic activity/Vol] 150 U/L Normal 39-[address] [facility] Comment on above: Performed By: #### T SH, LIPID, T4, FT3, CMP #### [facility] [address] [address] [address] Alicia Patel CK.MB [Mass/Vol] 4.99 ng/mL Critically high <=3.[address] [facility] Comment on above: Performed By: #### T SH, LIPID, T4, FT3, CMP #### [facility] [address] [address] [address] Alicia Patel HSTROP 16.9 pg/mL Normal 4.0-76.[address] [facility] Comment on above: Result Comment: CUT- OFF POINTS HAVE BEEN ESTABLISHED BASED ON THE FOURTH UNIVERSAL DEFINITIONS OF MYOCARDIAL INFARCTION. THE UPPER REFERENCE LIMIT (URL) OF TROPONIN, DEFINED THE 99TH PERCENTILE OF cTnI DISTRIBUTION IN A REFERENCE POPULATION, HAS BEEN CONFIRMED THE DECISION THRESHOLD FOR NE DIAGNOSIS. Performed By: #### T SH, LIPID, T4, FT3, CMP #### [facility] [address] [place] [address] Dr. Alicia Patel CARDIAC GUIDO ADMITon 023 CK [Catalytic activity/Vol] 128 U/L Normal 39-308 [facility] Comment on above: Performed By: #### T SH, LIPID, T4, FT3, CMP #### [facility] [address] [address] [address] Alicia Patel CK.MB [Mass/Vol] 4.95 ng/mL Critically high <=3.[address] [facility] Comment on above: Performed By: #### T SH, LIPID, T4, FT3, CMP #### [facility] [address] [place] [address] Dr. Alicia Patel HSTROP 18.0 pg/mL Normal 4.0-76.[address] [facility] Comment on above: Result Comment: CUT- OFF POINTS HAVE BEEN ESTABLISHED BASED ON THE FOURTH UNIVERSAL DEFINITIONS OF MYOCARDIAL INFARCTION. THE UPPER REFERENCE LIMIT (URL) OF TROPONIN, DEFINED THE 99TH PERCENTILE OF cTnI DISTRIBUTION IN A REFERENCE POPULATION, HAS BEEN CONFIRMED THE DECISION THRESHOLD FOR NE DIAGNOSIS. Performed By: #### T SH, LIPID, T4, FT3, CMP #### [facility] [address] [place] [address] Dr. Alicia Patel LIZZY 188 ng/mL Critically high 16-[address] [facility] Comment on above: Performed By: #### T SH, LIPID, T4, FT3, CMP #### [facility] [address] [place] [address] Dr. Alicia Patel CBC AUTO DIFFon 08-11-2022 BASO # 0.0 103/ul Normal 0.0-0.1 [facility] Comment on above: Performed By: #### T SH, LIPID, T4, FT3, CMP #### [facility] [address] [place] [address] Dr. Alicia Patel Basophils/100 WBC (Bld) 0.3 % Normal 0.2-2.[address] [facility] Comment on above: Performed By: #### T SH, LIPID, T4, FT3, CMP #### [facility] [address] [place] [address] Dr. Alicia Patel EO # 0.2 103/ul Normal 0.0-0.[address] [facility] Comment on above: Performed By: #### T SH, LIPID, T4, FT3, CMP #### [facility] [address] [place] [address] Dr. Alicia Patel Eosinophils/100 WBC (Bld) 1.8 % Normal 0.9-7.[address] [facility] Comment on above: Performed By: #### T SH, LIPID, T4, FT3, CMP #### [facility] [address] [place] [address] Dr. Alicia Patel Erythrocyte distribution width (RBC) [Ratio] 13.2 % Normal 11.0-15.[address] [facility] Comment on above: Performed By: #### T SH, LIPID, T4, FT3, CMP #### [facility] [address] [place] [address] Dr. Alicia Patel Hematocrit (Bld) [Volume fraction] 36.0 % Critically low 42.0-54.[address] [facility] Comment on above: Performed By: #### T SH, LIPID, T4, FT3, CMP #### [facility] [address] [place] [address] Dr. Alicia Patel Hemoglobin (Bld) [Mass/Vol] 12.0 g/dL Critically low 14.0-18.[address] [facility] Comment on above: Performed By: #### T SH, LIPID, T4, FT3, CMP #### [facility] [address] [place] [address] Dr. Alicia Patel IG # 0.34 10e3/ul Critically high 0.00-0.03 [facility] Comment on above: Performed By: #### T SH, LIPID, T4, FT3, CMP #### [facility] [address] [place] [address] Dr. Alicia Patel IG % 3.8 % Critically high 0.0-0.5 [facility] Comment on above: Performed By: #### T SH, LIPID, T4, FT3, CMP #### [facility] [address] [place] [address] Dr. Alicia Patel LYMPH # 0.5 103/ul Critically low 1.2-3.8 [facility] Comment on above: Performed By: #### T SH, LIPID, T4, FT3, CMP #### [facility] [address] [place] [address] Dr. Alicia Patel Lymphocytes/100 WBC (Bld) 5.9 % Critically low 20.5-60.0 [facility] Comment on above: Performed By: #### T SH, LIPID, T4, FT3, CMP #### [facility] [address] [place] [address] Dr. Alicia Patel MANUAL DIFF REQ NO Normal [facility] Comment on above: Performed By: #### T SH, LIPID, T4, FT3, CMP #### [facility] [address] [place] [address] Dr. Alicia Patel MCH (RBC) [Entitic mass] 32.3 pg Normal 25.9-34.[address] [facility] Comment on above: Performed By: #### T SH, LIPID, T4, FT3, CMP #### [facility] [address] [place] [address] Dr. Alicia Patel MCHC (RBC) [Mass/Vol] 33.3 g/dL Normal 29.9-35.2 [facility] Comment on above: Performed By: #### T SH, LIPID, T4, FT3, CMP #### [facility] [address] [place] [address] Dr. Alicia Patel MCV (RBC) [Entitic vol] 97.0 fL Critically high 80.0-94.0 [facility] Comment on above: Performed By: #### T SH, LIPID, T4, FT3, CMP #### [facility] [address] [place] [address] Dr. Alicia Patel MONO # 0.5 103/ul Normal 0.3-0.[address] [facility] Comment on above: Performed By: #### T SH, LIPID, T4, FT3, CMP #### [facility] [address] [place] [address] Dr. Alicia Patel Monocytes/100 WBC (Bld) 5.5 % Normal 1.7-12.0 [facility] Comment on above: Performed By: #### T SH, LIPID, T4, FT3, CMP #### [facility] [address] [place] [address] Dr. Alicia Patel NEUT # 7.5 103/ul Critically high 1.4-6.[address] [facility] Comment on above: Performed By: #### T SH, LIPID, T4, FT3, CMP #### [facility] [address] [place] [address] Dr. Alicia Patel Neutrophils/100 WBC (Bld) 82.7 % Critically high 43.0-75.[address] [facility] Comment on above: Performed By: #### T SH, LIPID, T4, FT3, CMP #### [facility] [address] [place] [address] Dr. Alicia Patel Platelet mean volume (Bld) [Entitic vol] 10.2 fL Normal 9.5-13.[address] [facility] Comment on above: Performed By: #### T SH, LIPID, T4, FT3, CMP #### [facility] [address] [place] [address] Dr. Alicia Patel PLT 191 103/ul Normal 150-[address] [facility] Comment on above: Performed By: #### T SH, LIPID, T4, FT3, CMP #### [facility] [address] [place], [place] [address] Dr. Alicia Patel RBC 3.71 106/ul Critically low 4.70-6.[address] [facility] Comment on above: Performed By: #### T SH, LIPID, T4, FT3, CMP #### [facility] [address] [place], [place] [address] Dr. Alicia Patel WBC 9.0 103/ul Normal 4.0-11.[address] [facility] Comment on above: Performed By: #### T SH, LIPID, T4, FT3, CMP #### [facility] [address] [place], [place] [address] ABD/PELVIS WO CONon [...] ILA GALLEGO Date: 2022-08-11 08:[address] [facility] Covid-19 PCR (CVDTBH)on 07-28 SARS-CoV-2 (COVID-19) RNA SAVANNAH+probe Ql (Unsp spec) Not detected Normal NOT DETECTED [facility] Comment on above: Result Comment: When [...] for this test is supported by the Gar[employer] Dis[employer] of Health and Human Service's declaration that [...] T SH, LIPID, T4, FT3, CMP #### [facility] [address] [place] [address] [address] Alicia Patel Diff and CBCon 08-11-2022 Anisocytosis Ql (Bld) Slight Normal [facility] Comment on above: Performed By: #### P T #### [address] Band form neutrophils/100 WBC (Bld) 1 % Normal 0-5 [facility] Comment on above: Performed By: #### P T #### [address] Crenated RBC Slight Normal [facility] Comment on above: Performed By: #### P T #### [address] Erythrocyte distribution width (RBC) [Ratio] 13.8 % Normal 12.0-14.8 [facility] Comment on above: Performed By: #### P T #### [address] Hematocrit (Bld) [Volume fraction] 38.1 % Low 38.8-50.0 [facility] Comment on above: Performed By: #### P T #### [address] Hemoglobin (Bld) [Mass/Vol] 12.5 g/dL Low 13.0-17.0 [facility] Comment on above: Performed By: #### P T #### [address] Lymphocytes/100 WBC (Bld) 5 % Low 18-42 [facility] Comment on above: Performed By: #### P T #### [address] MCH (RBC) [Entitic mass] 32.5 pg Normal 27.5-35.2 [facility] Comment on above: Performed By: #### P T #### [address] MCV (RBC) [Entitic vol] 99.0 fL Normal 83.5-101 [facility] Comment on above: Performed By: #### P T #### [address] Mean Corpuscular HGB Conc 32.8 g/dL Normal 32.5-35.6 [facility] Comment on above: Performed By: #### P T #### [address] Microcytosis Slight Normal [facility] Comment on above: Performed By: #### P T #### [address] Monocytes/100 WBC (Bld) 1 % Low 2-11 [facility] Comment on above: Performed By: #### P T #### [address] Platelet Estimate Normal Normal Normal [facility] Comment on above: Performed By: #### P T #### [address] Platelet mean volume (Bld) [Entitic vol] 8.8 fL Normal 6.6-10.1 [facility] Comment on above: Performed By: #### P T #### [address] Platelet Morphology Normal Normal Normal [facility] Comment on above: Result Comment: PERF ORMED BY: [place] [address] PATHOLOGIST BARTENDER DIANDRA LACY M.D. Performed By: #### P T #### [address] Platelets (Bld) [#/Vol] 203 10*3/uL Normal 150-450 [facility] Comment on above: Performed By: #### P T #### [address] Poikilocytosis Slight Normal [facility] Comment on above: Performed By: #### P T #### [address] RBC (Bld) [#/Vol] 3.85 10*6/uL Low 3.90-5.[address] [facility] Comment on above: Performed By: #### P T #### [address] Segmented neutrophils/100 WBC (Bld) 94 % High 50-70 [facility] Comment on above: Performed By: #### P T #### [address] WBC (Bld) [#/Vol] 9.1 10*3/uL Normal 4.1-10.5 [facility] Comment on above: Performed By: #### P T #### [address] ECG 12 lead ECGon 08-11-2022 ECG 12 lead ECG [facility] [place] [address] [place] [address] Electrocardiograph Report Signed Patient: Victorino Smyth MR#: [id number] : 1940 Acct:[id number] Age/Sex: 82 / M ADM Date: 08/11/22 Loc: 4N Room: 0M0636-6 Type: ADM IN Attending Dr: Hiral Interiano [...] By Yogesh Cisneros DO 08/13 1820 Normal [facility] ECG 12 lead ECG [facility] [address] Electrocardiograph Report Signed Patient: Victorino Smyth MR#: [id number] : 1940 Acct:[id number] Age/Sex: 82 / M ADM Date: 08/11/22 Loc: Room: 2B9834-0 Type: ADM IN Attending Dr: Hiral Interiano [...] When compared with ECG of 28-JUN-2019 20:47, [place] interval has increased Confirmed by YOGESH CISNEROS DO ([id number]) on 08/11/2022 6:42:37 PM Referred By: Electronically Signed By:YOGESH CISNEROS DO Transcribed By: MUS Signed By Yogesh Cisneros DO 08/11 1842 Normal [facility] ER URINE PROFILEon 3 Bilirubin Ql (U) Negative Normal NEGATIVE [facility] Comment on above: Performed By: #### T SH, LIPID, T4, FT3, CMP #### [facility] [address] [address] [address] Alicia Patel Clarity (U) CLEAR Normal CLEAR [facility] Comment on above: Performed By: #### T SH, LIPID, T4, FT3, CMP #### [facility] [address] [place] [address] [address] Alicia Patel Color (U) LT. YELLOW Normal YELLOW [facility] Comment on above: Performed By: #### T SH, LIPID, T4, FT3, CMP #### [facility] [address] [place] [address] Dr. Alicia Patel ERUROLAND A micrscopic examina tion will be performed if indicated. Normal [facility] Comment on above: Performed By: #### T SH, LIPID, T4, FT3, CMP #### [facility] [address] [address] [address] Alicia Patel Glucose Ql (U) Negative Normal NEGATIVE [facility] Comment on above: Performed By: #### T SH, LIPID, T4, FT3, CMP #### [facility] [address] [place] [address] [address] Alicia Patel Hemoglobin Ql (U) SMALL Abnormal NEGATIVE [facility] Comment on above: Performed By: #### T SH, LIPID, T4, FT3, CMP #### [facility] [address] [place] [address] [address] Alicia Patel Ketones Ql (U) Negative Normal NEGATIVE [facility] Comment on above: Performed By: #### T SH, LIPID, T4, FT3, CMP #### [facility] [address] [place] [address] [address] Alicia Patel LEUKOCYTES Negative Normal NEGATIVE [facility] Comment on above: Performed By: #### T SH, LIPID, T4, FT3, CMP #### [facility] [address] [place] [address] [address] Alicia Patel Nitrite Ql (U) Negative Normal NEGATIVE [facility] Comment on above: Performed By: #### T SH, LIPID, T4, FT3, CMP #### [facility] [address] [place] [address] [address] Alicia Patel pH (U) 6.0 [pH] Normal 5-9 [facility] Comment on above: Performed By: #### T SH, LIPID, T4, FT3, CMP #### [facility] [address] [place] [address] Dr. Alicia Patel Protein (U) [Mass/Vol] 100 mg/dL Abnormal NEGAT ОЛЕГ/ TRACE [facility] Comment on above: Performed By: #### T SH, LIPID, T4, FT3, CMP #### [facility] [address] [place] [address] Dr. Alicia Patel SPEC GRAVITY 1.015 Normal 1.005-<=1. 025 [facility] Comment on above: Performed By: #### T SH, LIPID, T4, FT3, CMP #### [facility] [address] [place] [address] Dr. Alicia Patel UR MICRO IND INDICATED Normal [facility] Comment on above: Performed By: #### T SH, LIPID, T4, FT3, CMP #### [facility] [address] [place] [address] Dr. Alicia Patel Urobilinogen Qn (U) 0.2 {Wil'U}/dL Normal 0.2 - 1. 0 [facility] Comment on above: Performed By: #### T SH, LIPID, T4, FT3, CMP #### [facility] [address] [place] [address] Dr. lAicia Patel Glucose Poct Glucometerson 0 08-11-2022 Glucose [Mass/Vol] 282 mg/dL Normal [facility] Comment on above: Result Comment: Angie Glucose Reference Range is dependent on time and content of last meal. Glucose of more than 200 mg/dL in a nonstressed, ambulatory subject supports the diagnosis of Diabetes Mellitus. PERFORMED BY: [address] [place] [address] PATHOLOGIST BARTENDER DIANDRA LACY M.D. Performed By: #### P T #### [address] Commemt1 Glu2: Cleaned Meter [facility] Comment on above: Result Comment: PERF ORMED BY: [address] [place] [address] PATHOLOGIST BARTENDER DIANDRA LACY M.D. Performed By: #### G LULS ####Point of Care testing, Glucose [Mass/Vol] 253 mg/dL Normal [facility] Comment on above: Result Comment: Angie om Glucose Reference Range is dependent on time and content of last meal. Glucose of more than 200 mg/dL in a nonstressed, ambulatory subject supports the diagnosis of Diabetes Mellitus. Performed By: #### G LULS ####Point of Care testing, Commemt1 Glu2: Cleaned Meter [facility] Comment on above: Result Comment: PERF ORMED BY: [place] [address] PATHOLOGIST BARTENDER DIANDRA LACY M.D. Performed By: #### P T #### [address] Glucose [Mass/Vol] 304 mg/dL Normal [facility] Comment on above: Result Comment: Angie om Glucose Reference Range is dependent on time and content of last meal. Glucose of more than 200 mg/dL in a nonstressed, ambulatory subject supports the diagnosis of Diabetes Mellitus. Performed By: #### P T #### [facility] [address] [place] [address] Commemt1 [facility] Comment on above: Result Comment: Glu2 : Result Not Confirmed PERFORMED BY: [place] [address] PATHOLOGIST BARTENDER DIANDRA LACY M.D. Performed By: #### B MP #### [address] [address] [place] Glucose [Mass/Vol] 440 mg/dL Off scale high [facility] Comment on above: Result Comment: [facility] Glucose Reference Range is dependent on time and content of last meal. Glucose of more than 200 mg/dL in a nonstressed, ambulatory subject supports the diagnosis of Diabetes Mellitus. Performed By: #### B MP #### [facility] [address] [place] [address] Hepatitis Acute Panelon 07-28 HBsAg Screen Negative Normal Negative [facility] Comment on above: Order Comment: DRAW ALL LABS WITH TROP AT 1647 Performed By: #### H EPACUTE #### [facility] , Hepatitis A Antibody IgM Negative Normal Negative [facility] Comment on above: Order Comment: DRAW ALL LABS WITH TROP AT 1647 Performed By: #### H EPACUTE #### [facility] , Hepatitis B Core Antibody IgM Negative Normal Negative [facility] Comment on above: Order Comment: DRAW ALL LABS WITH TROP AT 1647 Performed By: #### H EPACUTE #### [facility] , Hepatitis C Virus Antibody Non-Reactive Normal Non Reactive [facility] Comment on above: Order Comment: DRAW ALL LABS WITH TROP AT 1647 Performed By: #### H EPACUTE #### [facility] , Interpretation Hepatitis C Normal . [facility] Comment on above: Order Comment: DRAW ALL LABS WITH TROP AT 1647 Result Comment: Not infected with HCV unless early or acute infection is suspected (which may be delayed in an immunocompromised individual), or other evidence exists to indicate HCV infection. Performed at: - [facility] [address] [id number] Greeting Card Maker: Lee Bob PhD, Phone: [phone] PERFORMED BY: [place] [address] PATHOLOGIST BARTENDER DIADNRA LACY M.D. Performed By: #### H EPACUTE #### [facility] , Hepatitis B virus surface Ag [Presence] in Serum or Plasma by ImmunoassayOrdered By: Alicia Perea on 08-11-2022 HBV surface Ag IA Ql Negative Negative [facility] Hepatitis C virus IgG Ab [Pr esence] in Serum or Plasma by ImmunoassayOrdered By: Alicia Perea on 08-11-2022 HCV IgG IA Ql Non-Reactive Non Reactive [facility] Hepatitis C virus RNA [Units /volume] (viral load) in Serum or Plasma by SAVANNAH with probOrdered By: Alicia Perea on 08-11-2022 HCV RNA SAVANNAH+probe Qn N/A [facility] Hepatitis C virus RNA [log u nits/volume] (viral load) in Serum or Plasma by SAVANNAH withOrdered By: Alicia Perea on 08-11-2022 HCV RNA SAVANNAH+probe [Log units/Vol] N/A [facility] Laboratory - CoagulationOrde red By: Hiral Interiano on 08-11-2022 PT Coag (PPP) [Time] 12.2 s 9.0-12.9 [facility] Lymphocytes/100 WBC Manual c nt (Bld)Ordered By: Hiral Interiano on 08-11-2022 Lymphocytes/100 WBC (Bld) 5 % 18-42 [facility] Microcytes LM Ql (Bld)Ordere d By: Hiral Interiano on 08-11-2022 Microcytes Ql (Bld) Slight [facility] Monocytes/100 WBC Manual cnt (Bld)Ordered By: Hiral Interiano on 08-11-2022 Monocytes/100 WBC (Bld) 1 % 2-11 [facility] No Panel InformationOrdered By: Alicia Perea on 08-11-2022 Hepatitis A IgM Antibody Negative Negative [facility] Hepatitis B Core IgM Antibody Negative Negative [facility] Hepatitis C Interpretation See comment . [facility] Comment on above: Not infected with HC V unless early or acute infection issuspected (which may be delayed in an immunocompromisedindividual), or other evidence exists to indicate HCVinfection.Performed at: - [facility] [id number] Director: Lee Bob PhD, Phone: [phone] Hepatitis C RNA Quantitative N/A [facility] POINT OF CARE GLUCOSEon 07-28 Glucose [Mass/Vol] 132 mg/dL Critically high 74-106 [facility] Comment on above: Performed By: #### T SH, LIPID, T4, FT3, CMP #### [facility] [address] [address] [address] Alicia Patel Glucose [Mass/Vol] 117 mg/dL Critically high 74-106 [facility] Comment on above: Performed By: #### T SH, LIPID, T4, FT3, CMP #### [facility] [address] [address] [address] Alicia Patel Glucose [Mass/Vol] 95 mg/dL Normal 74-106 [facility] Comment on above: Performed By: #### P OCGLUC #### [facility] [address] [place] [address] Dr. Alicia Patel PROF CHEM 8 (BAS METB)on Creatinine [Mass/Vol] 17.89 mg/dL High 0.64-1.27 [facility] Comment on above: Performed By: #### T SH, LIPID, T4, FT3, CMP #### [facility] [address] [place] [address] Dr. Alicia Patel Performed By: #### B MP #### [facility] [address] Anion gap [Moles/Vol] 29.5 mmol/L Normal [facility] Comment on above: Performed By: #### T SH, LIPID, T4, FT3, CMP #### [facility] [address] [address] [address] Alicia Patel Calcium [Mass/Vol] 7.7 mg/dL Critically low 8.5-10.1 [facility] Comment on above: Performed By: #### T SH, LIPID, T4, FT3, CMP #### [facility] [address] [place] [address] Dr. Alicia Patel Chloride [Moles/Vol] 102 mmol/L Normal 98-107 [facility] Comment on above: Performed By: #### T SH, LIPID, T4, FT3, CMP #### [facility] [address] [place] [address] Dr. Alicia Patel CO2 [Moles/Vol] 13.5 mmol/L Critically low 21.0-32.0 [facility] Comment on above: Performed By: #### T SH, LIPID, T4, FT3, CMP #### [facility] [address] [place] [address] Dr. Alicia Patel EGFR-AF MEXICAN 3 mL/min/1.73m2 Critically low >=[address] [facility] Comment on above: Performed By: #### T SH, LIPID, T4, FT3, CMP #### [facility] [address] [place] [address] Dr. Alicia Patel EGFR-NON AF MEXICAN 3 mL/min/1.73m2 Critically low >=60 [facility] Comment on above: Performed By: #### T SH, LIPID, T4, FT3, CMP #### [facility] [address] [place] [address] Dr. Alicia Patel Glucose [Mass/Vol] 105 mg/dL Normal 74-[address] [facility] Comment on above: Performed By: #### T SH, LIPID, T4, FT3, CMP #### [facility] [address] [place] [address] Dr. Alicia Patel Potassium [Moles/Vol] 7.0 mmol/L Critically high 3.5-5.1 [facility] Comment on above: Performed By: #### T SH, LIPID, T4, FT3, CMP #### [facility] [address] [place] [address] Dr. Alicia Patel Sodium [Moles/Vol] 138 mmol/L Normal 136-[address] [facility] Comment on above: Performed By: #### T SH, LIPID, T4, FT3, CMP #### [facility] [address] [place] [address] Dr. Alicia Patel Urea nitrogen [Mass/Vol] 156.0 mg/dL Critically high 7.0-18.0 [facility] Comment on above: Performed By: #### T SH, LIPID, T4, FT3, CMP #### [facility] [address] [place], [place] [address] Dr. Alicia Patel Urea nitrogen/Creatinine [Mass ratio] 8.7 mg/mg Normal [facility] Comment on above: Performed By: #### T SH, LIPID, T4, FT3, CMP #### [facility] [address] [place], [place] [address] Dr. Alicia Patel Platelet adequacy [Presence] in Blood by Light microscopyOrdered By: iHral Interiano on 08-11-2022 Platelets LM Ql (Bld) Normal Normal [facility] Platelet morphology finding [Identifier] in BloodOrdered By: Hiral Interiano on 08-11-2022 Platelet morphology finding Nom (Bld) Normal Normal [facility] Platelet poor plasma interna tional normalized ratio (INR) by coagulation assay (relatOrdered By: Hiral Interiano on 08-11-2022 INR Coag (PPP) [Relative time] 1.0 {INR} [facility] Comment on above: INR Therapeutic [...] on 08-11-2022 Poikilocytosis LM Ql (Bld) Slight [facility] Prothrombin Time INRon 08-11 INR Coag (PPP) [Relative time] 1.0 {INR} Normal [facility] Comment on above: Result [...] 3 - 4.5 PERFORMED BY: [place] [address] PATHOLOGIST BARTENDER DIANDRA LACY M.D. Performed By: #### P T #### [address] PT Coag (PPP) [Time] 12.2 s Normal 9.0-12.9 [facility] Comment on above: Performed By: #### P T #### [address] RBC morphologyOrdered By: Donal Interiano on 08-11-2022 RBC morphology finding Nom (Bld) N/A [facility] Segmented neutrophils/100 WB C Manual cnt (Bld)Ordered By: Hiral Interiano on 08-11-2022 Segmented neutrophils/100 WBC (Bld) 94 % 50-70 [facility] Troponin I High Sensitivityo n 08-11-2022 Troponin I High Sensitivity 42 pg/mL High 0-20 [facility] Comment on above: Result Comment: PERF ORMED BY: [place] [address] PATHOLOGIST BARTENDER DIANDRA LACY M.D. Performed By: #### H S TROP ####[address] Troponin I High Sensitivity 16 pg/mL Normal 0-20 [facility] Comment on above: Result Comment: PERF ORMED BY: [place] [address] PATHOLOGIST BARTENDER DIANDRA LACY M.D. Performed By: #### P T #### [facility] [address] [place] [address] Troponin I.cardiac [Mass/vol ume] in Serum or Plasma by High sensitivity methodOrdered By: Hiral Interiano on 08-11-2022 Troponin I.cardiac High sensitivity method [Mass/Vol] 42 pg/mL 0-20 [facility] URINE MICROSCOPIC ONLYon BACTERIA TRACE Abnormal NONE SEEN [facility] Comment on above: Performed By: #### T SH, LIPID, T4, FT3, CMP #### [facility] [address] [address] [address] Alicia Patel Bacteria identified Cx Nom (U) NOT INDICATED Normal [facility] Comment on above: Performed By: #### T SH, LIPID, T4, FT3, CMP #### [facility] [address] [address] [address] Alicia Patel CAST NONE SEEN Normal NONE SEEN [facility] Comment on above: Performed By: #### T SH, LIPID, T4, FT3, CMP #### [facility] [address] [address] [address] Alicia Patel Crystals LM Nom (Urine sed) NONE SEEN Normal NONE SEEN [facility] Comment on above: Performed By: #### T SH, LIPID, T4, FT3, CMP #### [facility] [address] [address] [address] Alicia Patel Epithelial cells LM Ql (Urine sed) RARE Normal NONE SEEN /RARE [facility] Comment on above: Performed By: #### T SH, LIPID, T4, FT3, CMP #### [facility] [address] [place] [address] [address] Alicia Patel MUCOUS NONE SEEN Normal NONE SEEN [facility] Comment on above: Performed By: #### T SH, LIPID, T4, FT3, CMP #### [facility] [address] [place] [address] [address] Alicia Patel RBC 2-5 Abnormal 0-[address] [facility] Comment on above: Performed By: #### T SH, LIPID, T4, FT3, CMP #### [facility] [address] [address] [address] Alicia Patel WBC 2-5 Abnormal NONE SEEN [facility] Comment on above: Performed By: #### T SH, LIPID, T4, FT3, CMP #### [facility] [address] [place] [address] Dr. Alicia Patel XR CHEST 1 Von [...] by: YOGESH BYERS Date: 2022-08-11 04:27 Normal [facility] XR chest 1V portableon 08-11 XR chest 1V portable [facility] [place] [address] [place] [address] XRay Report Signed Patient: Victorino Smyth MR#: [id number] : 1940 Acct:[id number] Age/Sex: 82 / M ADM Date: 08/11/22 Loc: Room: [address] [place] [address] Type: ADM IN Attending Dr: Hiral Interiano [...] Rehan Fuentes M.D.08/11/2022 4:10 PM Dictation Location: [place] [address] Transcribed By: [facility] 08/11/22 1610 Dictated By: Rehan Fuentes DO 08/11/22 1602 Signed By: 08/11/22 1610 [facility] Covid-19 PCR (CVDTBH)on SARS-CoV-2 (COVID-19) RNA SAVANNAH+probe Ql (Unsp spec) Not detected Normal NOT DETECTED [facility] Comment on above: Result Comment: This test is not yet approved or cleared by the [place] FDA. When there are no FDA-approved or cleared tests available, and other criteria are met, FDA can make tests available under an emergency access mechanism called an Emergency Use Authorization (EUA). The EUA for this test is supported by the Garbage [employer] Dispatcher of Health and Human Service's (HHS's) declaration [...] T SH, LIPID, T4, FT3, CMP #### [facility] [address] [place] [address] Dr. Alicia Patel INFLUENZA A AND B AGon 08-02 [facility] SEE BELOW Normal [facility] Comment on above: Result Comment: Nega tive for Flu A protein angiten. Infection due to Flu A cannot be ruled out. Flu A angiten in the sample may be below the detection limit of the test. Performed By: #### T SH, LIPID, T4, FT3, CMP #### [facility] [address] [place] [address] Dr. Alicia Patel [facility] SEE BELOW Normal [facility] Comment on above: Result Comment: Nega tive for Flu B protein antigen. Infection due to Flu B cannot be ruled out. Flu B antigen in the sample may be below the detection limit of the test. Performed By: #### T SH, LIPID, T4, FT3, CMP #### [facility] [address] [place] [address] Dr. Alicia Patel INFLUENZA A AG Negative Normal NEGATIVE SEE COMMENT [facility] Comment on above: Performed By: #### T SH, LIPID, T4, FT3, CMP #### [facility] [address] [place] [address] Dr. Alicia Patel INFLUENZA B AG Negative Normal NEGATIVE SEE COMMENT [facility] Comment on above: Performed By: #### T SH, LIPID, T4, FT3, CMP #### [facility] [address] [place] [address] Dr. Alicia Patel PTH INTACTon 05-25-2022 PTH, Intact 47 pg/mL Normal 15-[address] [facility] Comment on above: Performed By: #### T SH, LIPID, T4, FT3, CMP #### [facility] [address] [place] [address] Dr. Alicia Patel ALBUMINon 05-24-2022 Albumin [Mass/Vol] 3.9 g/dL Normal 3.4-5.0 [facility] Comment on above: Performed By: #### T SH, LIPID, T4, FT3, CMP #### [facility] [address] [place] [address] Dr. Alicia Patel HEMOGRAM AND PLATELon 2021 Hematocrit (Bld) [Volume fraction] 42.1 % Normal 42.0-54.0 [facility] Comment on above: Performed By: #### T SH, LIPID, T4, FT3, CMP #### [facility] [address] [place] [address] Dr. Alicia Patel Hemoglobin (Bld) [Mass/Vol] 14.7 g/dL Normal 14.0-18.[address] [facility] Comment on above: Performed By: #### T SH, LIPID, T4, FT3, CMP #### [facility] [address] [place] [address] Dr. Alicia Patel MCH (RBC) [Entitic mass] 33.2 pg Normal 25.9-34.0 [facility] Comment on above: Performed By: #### T SH, LIPID, T4, FT3, CMP #### [facility] [address] [place] [address] Dr. Alicia Patel MCHC (RBC) [Mass/Vol] 34.9 g/dL Normal 29.9-35.[address] [facility] Comment on above: Performed By: #### T SH, LIPID, T4, FT3, CMP #### [facility] [address] [place] [address] Dr. Alicia Patel MCV (RBC) [Entitic vol] 95.0 fL Critically high 80.0-94.[address] [facility] Comment on above: Performed By: #### T SH, LIPID, T4, FT3, CMP #### [facility] [address] [place] [address] Dr. Alicia Patel PLT 190 103/ul Normal 150-[address] [facility] Comment on above: Performed By: #### T SH, LIPID, T4, FT3, CMP #### [facility] [address] [place] [address] Dr. Alicia Patel RBC 4.43 106/ul Critically low 4.70-6.[address] [facility] Comment on above: Performed By: #### T SH, LIPID, T4, FT3, CMP #### [facility] [address] [place] [address] Dr. Alicia Patel WBC 7.0 103/ul Normal 4.0-11.[address] [facility] Comment on above: Performed By: #### T SH, LIPID, T4, FT3, CMP #### [facility] [address] [place] [address] Dr. Alicia Patel MAGNESIUMon 05-24-2022 Magnesium [Mass/Vol] 1.7 mg/dL Critically low 1.8-2.[address] [facility] Comment on above: Performed By: #### T SH, LIPID, T4, FT3, CMP #### [facility] [address] [place] [address] Dr. Alicia Patel PHOSPHORUSon 05-24-2022 Phosphate [Mass/Vol] 3.7 mg/dL Normal 2.6-4.[address] [facility] Comment on above: Performed By: #### T SH, LIPID, T4, FT3, CMP #### [facility] [address] [place] [address] Dr. Alicia Patel PROF CHEM 8 (BAS METB)on Anion gap [Moles/Vol] 11.2 mmol/L Normal Th [facility] Comment on above: Performed By: #### U RTPCR #### [facility] [address] [address] [address] Alicia Patel Calcium [Mass/Vol] 9.1 mg/dL Normal 8.5-10.1 [facility] Comment on above: Performed By: #### U RTPCR #### [facility] [address] [address] [address] Alicia Patel Chloride [Moles/Vol] 104 mmol/L Normal 98-107 [facility] Comment on above: Performed By: #### U RTPCR #### [facility] [address] [address] [address] Alicia Patel CO2 [Moles/Vol] 29.2 mmol/L Normal 21.0-32.0 [facility] Comment on above: Performed By: #### U RTPCR #### [facility] [address] [address] [address] Alicia Patel Creatinine [Mass/Vol] 1.40 mg/dL Critically high 0.70-1.30 [facility] Comment on above: Performed By: #### U RTPCR #### [facility] [address] [place] [address] [address] Alicia Patel EGFR-AF MEXICAN 59 mL/min/1.73m2 Critically low >=60 [facility] Comment on above: Performed By: #### U RTPCR #### [facility] [address] [address] [address] Alicia Patel EGFR-NON AF MEXICAN 49 mL/min/1.73m2 Critically low >=60 [facility] Comment on above: Performed By: #### U RTPCR #### [facility] [address] [address] [address] Alicia Patel Glucose [Mass/Vol] 148 mg/dL Critically high 74-106 T [facility] Comment on above: Performed By: #### U RTPCR #### [facility] [address] [place] [address] [address] Alicia Patel Potassium [Moles/Vol] 4.4 mmol/L Normal 3.5-5.[address] [facility] Comment on above: Performed By: #### U RTPCR #### [facility] [address] [address] [address] Alicia Patel Sodium [Moles/Vol] 140 mmol/L Normal 136-145 [facility] Comment on above: Performed By: #### U RTPCR #### [facility] [address] [place] [address] Dr. Alicia Patel Urea nitrogen [Mass/Vol] 16.0 mg/dL Normal 7.0-18.0 [facility] Comment on above: Performed By: #### U RTPCR #### [facility] [address] [place] [address] Dr. Alicia Patel Urea nitrogen/Creatinine [Mass ratio] 11.4 mg/mg Normal [facility] Comment on above: Performed By: #### U RTPCR #### [facility] [address] [place] [address] Dr. Alicia Patel UA RANDOM W/MICROSCOPICon BACTERIA NONE SEEN Normal NONE SEEN [facility] Comment on above: Performed By: #### T SH, LIPID, T4, FT3, CMP #### [facility] [address] [place] [address] Dr. Alicia Patel Bilirubin Ql (U) Negative Normal NEGATIVE [facility] Comment on above: Performed By: #### T SH, LIPID, T4, FT3, CMP #### [facility] [address] [place] [address] Dr. Alicia Patel CAST NONE SEEN Normal NONE SEEN [facility] Comment on above: Performed By: #### T SH, LIPID, T4, FT3, CMP #### [facility] [address] [place] [address] Dr. Alicia Patel Clarity (U) CLEAR Normal CLEAR [facility] Comment on above: Performed By: #### T SH, LIPID, T4, FT3, CMP #### [facility] [address] [place] [address] [address] Alicia Patel Color (U) LT. YELLOW Normal YELLOW [facility] Comment on above: Performed By: #### T SH, LIPID, T4, FT3, CMP #### [facility] [address] [place] [address] [address] Alicia Patel Crystals LM Nom (Urine sed) NONE SEEN Normal NONE SEEN [facility] Comment on above: Performed By: #### T SH, LIPID, T4, FT3, CMP #### [facility] [address] [place] [address] [address] Alicia Ptael Epithelial cells LM Ql (Urine sed) FEW Abnormal NONE SEEN /RARE [facility] Comment on above: Performed By: #### T SH, LIPID, T4, FT3, CMP #### [facility] [address] [place] [address] Dr. Alicia Patel Glucose Ql (U) Negative Normal NEGATIVE [facility] Comment on above: Performed By: #### T SH, LIPID, T4, FT3, CMP #### [facility] [facility] [address] [place] [address] Dr. Alicia Patel Hemoglobin Ql (U) Negative Normal NEGATIVE [facility] Comment on above: Performed By: #### T SH, LIPID, T4, FT3, CMP #### [facility] [address] [place] [address] Dr. Alicia Patel Ketones Ql (U) Negative Normal NEGATIVE [facility] Comment on above: Performed By: #### T SH, LIPID, T4, FT3, CMP #### [facility] [address] [place] [address] Dr. Alicia Patel LEUKOCYTES Negative Normal NEGATIVE [facility] Comment on above: Performed By: #### T SH, LIPID, T4, FT3, CMP #### [facility] [address] [address] [address] Alicia Patel MUCOUS NONE SEEN Normal NONE SEEN [facility] Comment on above: Performed By: #### T SH, LIPID, T4, FT3, CMP #### [facility] [address] [place] [address] Dr. Alicia Patel Nitrite Ql (U) Negative Normal NEGATIVE [facility] Comment on above: Performed By: #### T SH, LIPID, T4, FT3, CMP #### [facility] [address] [place] [address] Dr. Alicia Patel pH (U) 5.5 [pH] Normal 5-9 [facility] Comment on above: Performed By: #### T SH, LIPID, T4, FT3, CMP #### [facility] [address] [place] [address] Dr. Alicia Patel RBC NONE SEEN Abnormal 0-[address] [facility] Comment on above: Performed By: #### T SH, LIPID, T4, FT3, CMP #### [facility] [address] [place] [address] Dr. Alicia Patel SPEC GRAVITY 1.020 Normal 1.005-<=1. 025 [facility] Comment on above: Performed By: #### T SH, LIPID, T4, FT3, CMP #### [facility] [address] [place] [address] Dr. Alicia Patel UA PROTEIN Negative Normal NEGATIVE/ TRACE [facility] Comment on above: Performed By: #### T SH, LIPID, T4, FT3, CMP #### [facility] [address] [place] [address] Dr. Alicia Patel Urobilinogen Qn (U) 0.2 {Wil'U}/dL Normal 0.2 - 1. 0 [facility] Comment on above: Performed By: #### T SH, LIPID, T4, FT3, CMP #### [facility] [address] [place] [address] Dr. Alicia Patel WBC NONE SEEN Normal NONE SEEN [facility] Comment on above: Performed By: #### T SH, LIPID, T4, FT3, CMP #### [facility] [address] [place] [address] Dr. Alicia Patel URIC ACID SERUMon 05-24-2022 Urate [Mass/Vol] 5.6 mg/dL Normal 3.5-7.[address] [facility] Comment on above: Performed By: #### T SH, LIPID, T4, FT3, CMP #### [facility] [address] [address] [address] Alicia Patel URINE T PROTEIN CREAT RATIOo n 05-24-2022 Protein (U) [Mass/Vol] 26.0 mg/dL Critically high <=12.0 [facility] Comment on above: Performed By: #### T SH, LIPID, T4, FT3, CMP #### [facility] [address] [address] [address] Alicia Patel UR PROT CREAT RAT 0.34 Normal [facility] Comment on above: Performed By: #### T SH, LIPID, T4, FT3, CMP #### [facility] [address] [address] [address] Alicia Patel URINE CREAT 77.39 mg/dL Normal 20.00-300. 00 [facility] Comment on above: Performed By: #### T SH, LIPID, T4, FT3, CMP #### [facility] [address] [address] [address] Alicia Patel Vital Signs Date Time Vital Sign Value Performing Clinician Facility 06-14-2023 11:00-0500 Body height 175.26 cm Alicia Brit Other [employer] Other 06-14-2023 11:00-0500 Body mass index (BMI) [Ratio] 38.51 kg/m2 Alicia Brit Other [employer] Other 06-14-2023 11:00-0500 Body temperature 97.2 [degF] Alicia Brit Other [employer] Other 06-14-2023 11:00-0500 Body weight 118.3 kg Alicia Brit Other [employer] Other 06-14-2023 11:00-0500 Diastolic blood pressure 72 mm[Hg] Alicia Brit Other [employer] Other 06-14-2023 11:00-0500 Respiratory rate 18 /min Alicia Brit Other [employer] Other 06-14-2023 11:00-0500 SaO2% (BldA) [Mass fraction] 95 % Alicia Brit Other [employer] Other 06-14-2023 11:00-0500 Systolic blood pressure 122 mm[Hg] Alicia Brit Other [employer] Other 11-29-2022 10:20-0400 Body height 175.26 cm Alicia Brit Other [employer] Other 11-29-2022 10:20-0400 Body mass index (BMI) [Ratio] 36.77 kg/m2 Alicia Brit Other [employer] Other 11-29-2022 10:20-0400 Body temperature 96.3 [degF] Alicia Brit Other [employer] Other 11-29-2022 10:20-0400 Body weight 112.95 kg Alicia Brit Other [employer] Other 11-29-2022 10:20-0400 Diastolic blood pressure 72 mm[Hg] Alicia Brit Other [employer] Other 11-29-2022 10:20-0400 Respiratory rate 18 /min Alicia Brit Other [employer] Other 11-29-2022 10:20-0400 SaO2% (BldA) [Mass fraction] 96 % Alicia Brit Other [facility] Other 11-29-2022 10:20-0400 Systolic blood pressure 137 mm[Hg] Alicia Brit Other [facility] Other 10-07-2022 17:25-0400 Heart rate 66 /min Ni OLIVARES [facility] 10-07-2022 17:25-0400 SaO2% (BldA) [Mass fraction] 92 % Ni OLIVARES [facility] 10-07-2022 17:25-0400 Respiratory rate 16 /min Ni OLIVARES [facility] 10-07-2022 17:24-0400 Body temperature 97.7 [degF] Ni OLIVARES [facility] 10-07-2022 17:24-0400 Diastolic blood pressure 74 mm[Hg] Ni OLIVARES [facility] 10-07-2022 17:24-0400 Mean blood pressure 106 mm[Hg] Ni OLIVARES [facility] 10-07-2022 17:24-0400 Systolic blood pressure 170 mm[Hg] Ni OLIVARES [facility] 10-07-2022 16:18-0400 Heart rate 61 /min Ni OLIVARES [facility] 10-07-2022 16:18-0400 SaO2% (BldA) [Mass fraction] 95 % [facility] [employer] 10-07-2022 16:17-0400 Diastolic blood pressure 81 mm[Hg] [employer] [facility] 10-07-2022 16:17-0400 Mean blood pressure 103 mm[Hg] Ni [facility]OOK [facility] 10-07-2022 16:17-0400 Systolic blood pressure 148 mm[Hg] Ni [facility]OOK [facility] 10-07-2022 16:17-0400 Respiratory rate 16 /min Ni COOK [facility] 10-07-2022 16:11-0400 Diastolic blood pressure 75 mm[Hg] Ni [facility]OOK [facility] 10-07-2022 16:11-0400 Heart rate 58 /min Ni COOK [facility] 10-07-2022 16:11-0400 Mean blood pressure 98 mm[Hg] Ni [facility] 10-07-2022 16:11-0400 Respiratory rate 17 /min Ni [facility]OOK [facility] 10-07-2022 16:11-0400 SaO2% (BldA) [Mass fraction] 97 % Ni [facility]OOK [facility] 10-07-2022 16:11-0400 Systolic blood pressure 144 mm[Hg] Ni [facility]OOK [facility] 10-07-2022 16:00-0400 Mean blood pressure 92 mm[Hg] Ni [facility] 10-07-2022 16:00-0400 Respiratory rate 13 /min Ni COOK [facility] 10-07-2022 15:55-0400 Mean blood pressure 86 mm[Hg] Ni [facility]OOK [facility] 10-07-2022 15:55-0400 Respiratory rate 17 /min Ni COOK [facility] 10-07-2022 15:46-0400 Body temperature 98.06 [degF] Ni OLIVARES [facility] 10-07-2022 15:40-0400 Respiratory rate 15 /min Ni OLIVARES [facility] 10-07-2022 10:14-0400 Mean blood pressure 97 mm[Hg] Ni OLIVARES [facility] 10-07-2022 10:14-0400 Blood Pressure Location Ni OLIVARES [facility] 10-07-2022 10:13-0400 Heart rate 64 /min Ni OLIVARES [facility] 10-07-2022 10:12-0400 Body temperature 98.06 [degF] Ni OLIVARES [facility] 10-07-2022 10:12-0400 Blood Pressure Location Ni OLIVARES [facility] 09-15-2022 14:40-0400 Body height 175.26 cm Alicia Brit Other [facility] Other 09-15-2022 14:40-0400 Body mass index (BMI) [Ratio] 37.48 kg/m2 Alicia Brit Other [employer] Other 09-15-2022 14:40-0400 Body weight 115.12 kg Alicia Brit Other [employer] Other 09-15-2022 14:40-0400 Diastolic blood pressure 73 mm[Hg] Alicia Brit Other [employer] Other 09-15-2022 14:40-0400 Respiratory rate 18 /min Alicia Brit Other [facility] Other 09-15-2022 14:40-0400 SaO2% (BldA) [Mass fraction] 97 % Alicia Brit Other [facility] Other 09-15-2022 14:40-0400 Systolic blood pressure 138 mm[Hg] Alicia Brit Other [facility] Other 09-06-2022 10:01-0400 Blood Pressure Location [employer] [facility] 09-06-2022 10:01-0400 Diastolic blood pressure 70 mm[Hg] [employer] [facility] 09-06-2022 10:01-0400 Heart rate 68 /min [employer] [facility] 09-06-2022 10:01-0400 Systolic blood pressure 132 mm[Hg] [employer] [facility] 08-15-2022 12:16-0500 Body temperature 97.8 [degF] MD Tray lAfaro Work Phone: [facility] 08-15-2022 12:16-0500 Diastolic blood pressure 92 mm[Hg] MD Tray Alfaro Work Phone: [facility] 08-15-2022 12:16-0500 Heart rate 68 /min MD Tray Alfaro Work Phone: [facility] 08-15-2022 12:16-0500 Respiratory rate 18 /min MD Tray Alfaro Work Phone: [facility] 08-15-2022 12:16-0500 SaO2% (BldA) [Mass fraction] 95 % MD Tray Alfaro Work Phone: [facility] 08-15-2022 12:16-0500 Systolic blood pressure 146 mm[Hg] MD Tray Alfaro Work Phone: [facility] 08-15-2022 05:08-0500 Body weight 118.2 kg MD Tray Alfaro Work Phone: [facility] 08-13-2022 13:10-0500 Inhaled oxygen flow rate 8 L/min MD Tray Alfaro Work Phone: [facility] 08-13-2022 11:54-0500 Body height 177.8 cm MD Tray Alfaro Work Phone: [facility] 08-13-2022 11:54-0500 Body mass index (BMI) [Ratio] 37.3 kg/m2 MD Tray Alfaro Work Phone: [facility] 06-01-2022 11:40-0500 Body height 175.26 cm Alicia Brit Other [employer] Other 06-01-2022 11:40-0500 Body mass index (BMI) [Ratio] 37.77 kg/m2 Alicia Brit Other [employer] Other 06-01-2022 11:40-0500 Body temperature 97.5 [degF] Alicia Brit Other [employer] Other 06-01-2022 11:40-0500 Body weight 116.03 kg Alicia Brit Other [employer] Other 06-01-2022 11:40-0500 Diastolic blood pressure 71 mm[Hg] Alicia Brit Other [employer] Other 06-01-2022 11:40-0500 Respiratory rate 18 /min Alicia Brit Other [employer] Other 06-01-2022 11:40-0500 SaO2% (BldA) [Mass fraction] 93 % Alicia Brit Other [employer] Other 06-01-2022 11:40-0500 Systolic blood pressure 134 mm[Hg] Alicia Brit Other [employer] Other 11-24-2021 11:20-0400 Body height 175.26 cm Alicia Brit Other [employer] Other 11-24-2021 11:20-0400 Body mass index (BMI) [Ratio] 36.26 kg/m2 Alicia Brit Other [employer] Other 11-24-2021 11:20-0400 Body temperature 96.4 [degF] Alicia Rbit Other [employer] Other 11-24-2021 11:20-0400 Body weight 111.4 kg Alicia Brit Other [employer] Other 11-24-2021 11:20-0400 Diastolic blood pressure 72 mm[Hg] Alicia Brit Other [employer] Other 11-24-2021 11:20-0400 Respiratory rate 18 /min Alicia Brit Other [employer] Other 11-24-2021 11:20-0400 SaO2% (BldA) [Mass fraction] 95 % Alicia Brit Other [employer] Other 11-24-2021 11:20-0400 Systolic blood pressure 139 mm[Hg] Alicia Brit Other [employer] Other 10-26-2021 09:17-0400 Blood Pressure Location Milton BRAUN [facility] 10-26-2021 09:17-0400 Diastolic blood pressure 69 mm[Hg] Milton BRAUN [facility] 10-26-2021 09:17-0400 Heart rate 64 /min Milton BRAUN [facility] 10-26-2021 09:17-0400 Respiratory rate 16 /min Milton BRAUN [facility] 10-26-2021 09:17-0400 Systolic blood pressure 139 mm[Hg] Milton BRAUN [facility] 05-26-2021 11:00-0500 Body height 175.26 cm Alicia Brit Other [employer] Other 05-26-2021 11:00-0500 Body mass index (BMI) [Ratio] 34.4 kg/m2 Alicia Brit Other [employer] Other 05-26-2021 11:00-0500 Body temperature 96.9 [degF] Alicia Brit Other [employer] Other 05-26-2021 11:00-0500 Body weight 105.69 kg Alicia Brit Other [employer] Other 05-26-2021 11:00-0500 Diastolic blood pressure 80 mm[Hg] Alicia Brit Other [employer] Other 05-26-2021 11:00-0500 Respiratory rate 18 /min Alicia Brit Other [employer] Other 05-26-2021 11:00-0500 SaO2% (BldA) [Mass fraction] 94 % Alicia Brit Other [employer] Other 05-26-2021 11:00-0500 Systolic blood pressure 136 mm[Hg] Alicia Brit Other [employer] Other Encounters Encounter Date Encounter Type Care Provider Facility Start: 06-12-2024 ambulatory Ni OLIVARES Facility :[facility] Start: 07-02-2023 End: 07-02-2023 ambulatory Ni Olivares Facility:[facility] Start: 07-02-2023 End: 07-02-2023 ambulatory MD Tray Alfaro Work Phone: [facility] Work Phone: Start: 07-02-2023 End: 07-02-2023 Patient encounter procedure MD Tray Alfaro Work Phone: [facility] [place] Work Phone: Start: 06-28-2023 End: 06-28-2023 ambulatory Ni Olivares Facility:[facility] Start: 06-28-2023 End: 06-28-2023 ambulatory MD Tray Alfaro Work Phone: [facility] Work Phone: Start: 06-28-2023 End: 06-28-2023 Patient encounter procedure MD Tray Alfaro Work Phone: [facility] [place] Work Phone: Start: 06-16-2023 End: 06-16-2023 ambulatory Ni Olivares Facility:[facility] Start: 06-16-2023 End: 06-16-2023 ambulatory MD Tray Alfaro Work Phone: [facility] Work Phone: Start: 06-16-2023 End: 06-16-2023 Patient encounter procedure MD Tray Alfaro Work Phone: [facility] [place] Work Phone: Start: 06-14-2023 Office outpatient vi sit 25 minutes Alicia Brit [facility] Start: 06-14-2023 End: 06-15-2023 ambulatory Ni OLIVARES [employer] Other Start: 06-14-2023 End: 06-14-2023 Patient encounter procedure Ni OLIVARES [facility] Start: 01-26-2023 End: 01-26-2023 ambulatory [facility] Start: 12-20-2022 End: 12-21-2022 ambulatory Ni OLIVARES Facility:[facility] Start: 12-20-2022 End: 12-20-2022 Patient encounter procedure Ni OLIVARES [facility] Start: 12-02-2022 End: 12-02-2022 ambulatory Ni OLIVARES Facility:[facility] Start: 11-29-2022 End: 11-29-2022 ambulatory Alicia Brit Other [facility] Other Start: 11-29-2022 Office outpatient vi sit 25 minutes Alicia Brit [facility] Start: 11-18-2022 End: 11-19-2022 ambulatory MD ALICIA PEREA Facility:[facility] Start: 11-18-2022 End: 11-19-2022 ambulatory Ni OLIVARES Facility:[facility] Start: 11-17-2022 End: 11-17-2022 ambulatory [facility] Start: 11-17-2022 End: 11-17-2022 Encounter for preprocedural cardiovascular examination [facility] Start: 11-10-2022 End: 11-24-[address] TRAY ALFARO . Facility: Start: 11-08-2022 End: 11-08-[address] TRAY ALFARO . Facility: Start: 11-06-2022 End: 11-07-[address] TRAY ALFARO . Facility: Start: 10-29-2022 End: 10-30-2022 ambulatory Milton BRAUN Facility:[facility] Start: 10-29-2022 End: 10-29-2022 Patient encounter procedure Milton BRAUN [facility] Start: 10-26-2022 End: 10-27-2022 ambulatory IRIS CORONEL Facility: Start: 10-22-2022 End: 10-23-[address] MILTON BRAUN . Facility: Start: 10-15-2022 End: 10-16-[address] TRAY ALFARO . Facility: Start: 10-14-2022 End: 10-15-2022 ambulatory IRIS CORONEL Facility: Start: 10-14-2022 End: 10-14-2022 ambulatory [facility] Start: 10-07-2022 End: 10-07-2022 ambulatory Ni OLIVARES Facility:[facility] Start: 10-07-2022 End: 10-07-2022 Admission to same day surgery center Ni OLIVARES [facility] Start: 09-15-2022 End: 09-15-2022 ambulatory Alicia Perea Other [employer] Other Start: 09-15-2022 Office outpatient vi sit 25 minutes Alicia Brit [facility] Start: 09-14-2022 End: 09-15-2022 ambulatory Ni OLIVARES Facility:[id number] Start: 09-13-2022 End: 09-14-2022 ambulatory ALICIA BRIT Facility:[facility] Start: 09-06-2022 End: 09-07-2022 ambulatory Ni OLIVARES Facility:[facility] Start: 09-06-2022 End: 09-06-2022 Patient encounter procedure Ni OLIVARES [facility] [place] Start: 09-01-2022 End: 09-02-[address] NI OLIVARES Facility:[facility] Start: 08-31-2022 End: 08-31-2022 ambulatory Tray Alfaro Facility:[facility] Start: 08-24-2022 End: 08-25-[address] TRAY ALFARO . Facility:[facility] Start: 08-22-2022 End: 08-22-[address] TRAY ALFARO . Facility:[facility] Start: 08-21-2022 End: 08-22-[address] TRAY ALFARO . Facility:[facility] Start: 08-18-2022 End: 08-19-2022 ambulatory ALICIA PURDYDIR Facility:[facility] Start: 08-16-2022 ambulatory Ni OLIVARES Facility:[facility] [place] Start: 08-11-2022 ambulatory Facility:[facility] Start: 08-11-2022 Patient encounter status MD Iglesias Work Phone: [facility] Start: 08-11-2022 Encounter for preprocedural cardiovascular examination Hiral Interiano [facility] Start: 08-11-2022 End: 08-15-2022 Evaluation and management of inpatient Gita Mischler Facility:[facility] Start: 08-11-2022 End: 08-15-2022 Encounter for preprocedural cardiovascular examination MD Tray Alfaro Work Phone: [facility] Start: 08-11-2022 End: 08-15-2022 Evaluation and management of inpatient MD Tray Alfaro Work Phone: [facility] [facility] Work Phone: Start: 08-11-2022 End: 08-14-2022 ambulatory THADDEUS DAUGHERTY Facility:[facility] Start: 08-02-2022 End: 08-02-[address] TRAY ALFARO . Facility:[facility] Start: 07-08-2022 End: 07-23-[address] TRAY ALFARO . Facility:[facility] Start: 06-01-2022 End: 06-01-2022 ambulatory Alicia Brit Other [employer] Other Start: 06-01-2022 Office outpatient vi sit 25 minutes Alicia Brit [facility] Start: 05-24-2022 End: 05-25-2022 ambulatory ALICIA BRIT Facility:[facility] Start: 02-03-2022 End: 02-04-[address] TRAY ALFARO . Facility:[facility] Start: 11-24-2021 End: 11-24-2021 ambulatory Alicia Brit Other [employer] Other Start: 11-24-2021 Office outpatient vi sit 25 minutes Alicia Brit [facility] Start: 10-26-2021 End: 10-26-2021 Patient encounter procedure Milton BRAUN [facility] Start: 05-26-2021 End: 05-26-2021 ambulatory Alicia Brit Other [employer] Other Start: 05-26-2021 Office outpatient vi sit [...] T SH, LIPID, T4, FT3, CMP #### [facility] [address] [address] [address] Alicia Patel Start: 10-07-2022 Extracorporeal shock wave lithotripsy of calculus of kidney Ni OLIVARES Start: 08-21-2022 PSA screening ALICIA QAD IR Comment on above: Performed By: #### P SAD #### [facility] [address] [address] [address] Alicia Patel Start: 08-13-2022 Cystoscopy MD Tray Alfaro Work Phone: Start: 08-11-2022 Plain chest X-ray MD Iglesias Work Phone: Start: 08-01-2019 Transurethral prostatectomy Milton BRAUN Start: 07-04-2019 Biopsy of prostate Patr humaira KADE Start: 06-27-2019 cystoscopy, bilatera l, ureteroscopy, laser lithotripsy Milton BRAUN ear surgery Milton BRAUN ear surgery Ni OLIVARES Plan of Treatment Date Care Activity Detail Author Start: 08-15-2022 [facility] Start: 08-14-2022 Microbial culture of sputum [facility] Start: 08-14-2022 Aerobic Culture Aerobic Culture [facility] Start: 08-14-2022 Investigation of tra nsfusion reaction Gram Stain [facility] Start: 08-11-2022 Hospital admission [facility] Start: 08-11-2022 Referral to tubing oiler [facility] Start: 08-11-2022 Referral to outside event sales specialist [facility] Start: 08-11-2022 Referral to urologist [facility] Chest WO contrast [facility] Patient referral [facility] Work Phone: Renal function 2000 panel - Serum or Plasma [facility] Immunizations Immunization Date Immunization Notes Care Provider Fa cility 05-02-2023 pneumococcal 20-marco nt conjugate vaccine Ni OLIVARES [facility] 05-02-2023 tetanus toxoid, redu martha diphtheria toxoid, and acellular pertussis vaccine, adsorbed Ni OLIVARES [facility] 03-29-2022 SARS-CoV-2 (COVID-19 ) [id number] Ni OLIVARES [facility] 05-18-2021 SARS-CoV-2 (COVID-19 ) Ad26 vaccine, recombinant Ni OLIVARES [facility] 03-30-2021 influenza virus vaccine, unspecified formulation Ni OLIVARES [facility] 09-01-2020 SARS-CoV-2 (COVID-19 ) Ad26 vaccine, recombinant Ni OLIVARES [facility] 06-27-2020 SARS-CoV-2 (COVID-19 ) Ad26 vaccine, recombinant Milton BRAUN [facility] [place] 04-18-2020 influenza virus vaccine, unspecified formulation Ni OLIVARES [facility] 02-05-2020 zoster vaccine recombinant Ni OLIVARES [facility] 12-06-2019 zoster vaccine recombinant Ni OLIVARES [facility] 04-04-2019 influenza virus vaccine, unspecified formulation Milton BRAUN [facility] [place] 04-05-2017 influenza virus vaccine, unspecified formulation Ni OLIVARES [facility] 04-05-2017 pneumococcal conjuga te vaccine, 13 valent Ni OLIVARES [facility] 04-12-2016 influenza, unspecifi ed formulation Ni OLIVARES [facility] Payers Date Payer Category Payer Medicare [id number] 2022 Self-pay [id number] 1959 Private Health Insurance [id number] 1959 Private Health Insurance [id number] 1942 Unknown [id number] 1942 Unknown [id number] 1942 Unknown [id number] 1942 Unknown [id number] [id number] 1942 Unknown [id number] [id number] 1942 Unknown [id number] [id number] 023 Unknown [id number] [id number] 1942 Unknown [id number] 2.16.840.1.385134.3.579.2.593 1942 Unknown [id number] 2.16.840.1.637209.3.579.2.593 1942 Unknown [id number] 2.16.840.1.242976.3.579.2.593 1942 Unknown [id number] 2.16.840.1.903192.3.579.2.593 1942 Unknown [id number] 2.16.840.1.032443.3.579.2.593 1942 Unknown [id number] 2.16.840.1.969816.3.579.2.593 1942 Unknown [id number] 2.16.840.1.857605.3.579.2.593 1942 Unknown [id number] 2.16.840.1.823503.3.579.2.593 1942 Unknown [id number] 2.16.840.1.115255.3.579.2.593 1940 Unknown [id number] 2.16.840.1.182015.3.579.2.593 1940 Unknown [id number] 2.16.840.1.206617.3.579.2.593 1942 Unknown [id number] 2.16.840.1.650372.3.579.2.593 1942 Unknown [id number] 2.16.840.1.514370.3.579.2.593 1942 Unknown [id number] 2.16.840.1.135245.3.579.2.727 1942 Unknown [id number] 2.16.840.1.688707.3.579.2.727 1942 Unknown [id number] 2.16.840.1.119788.3.579.2. 1942 Unknown [id number] 2.16.840.1.379713.3.579.2.72 1942 Unknown [id number] 2.16.840.1.671729.3.579.2. 1942 Unknown [id number] 2.16.840.1.451676.3.579.2.72 1942 Unknown [id number] 2.16.840.1.203997.3.579.2. 1942 Unknown [id number] 2.16.840.1.039857.3.579.2. 1942 Unknown [id number] 2.16.840.1.634435.3.579.2.72 1942 Unknown [id number] 2.16.840.1.822862.3.579.2. 1940 Unknown [id number] 2.16.840.1.970108.3.579.2.72 Medicare [id number] 2.16.8 40.1.029032.19 Medicare [id number] 2.1 6.840.1.917011.19 Unknown [place] BC/BS [id number] Unknown [id number] 2.16.840.1.723274.3.579.2.531 Unknown [id number] 2.16.840.1.300694.3.579.2.531 Unknown [id number] 2.16.840.1.311676.3.579.2.531 Unknown [id number] 2.16.840.1.916304.3.579.2.531 Unknown [id number] 2.16.840.1.842479.3.579.2.531 Social History Date Type Detail Facility Start: 08-18-2020 End: 08-13-2022 Tobacco smoking status Ex-smoker (finding) [facility] Other Comment on above: quit in 1978 Sex Assigned At Male [facility] Other Start: 1940 Sex Assigned At Male [facility] Tobacco smoking status Never [facility] Comment on above: quit in 1978 Medical Equipment Procedure Code Equipment Code Equipment Origin al Text Equipment Identifier Dates Cystoscopy, with ureteral calculus manipulation and stent placement Polymeric ureteral stent [id number] FDA Start: 06-15-2019 Cystoscopy, with ureteral calculus manipulation and stent placement Polymeric ureteral stent ()[id number] FDA Start: 06-15-2019 Cystoscopy, with ureteral calculus manipulation and stent placement Polymeric ureteral stent ()[id number] FDA Start: 08-13-2022 Biopsy, prostate, with US guidance Polymeric ureteral stent ()[id number] FDA Start: 07-04-2019 CYSTOSCOPY URETEROSCOPY Ni OLIVARES MD 12/02/22 Unknown Ureter R {[id number] FDA Start: 12-02-2022 Goals Date Patient Goal Desired Activity /State Functional Status Date Assessment Result Facility 12-20-2022 Functional Status N/A [facility] 09-06-2022 Functional Status N/A [facility] 08-15-2022 Functional status Patient at Baseline [facility] Work Phone: Mental Status Date Assessment Result Facility 08-15-2022 Cognitive function Cognitive Sta tus Patient at Baseline [facility] Work Phone: Clinical Notes 05-26-2021 to 06-14-2023 Note Date & Type Note Facility 06-14-2023 Evaluation note Encounter Date Diagnosis Assessment Notes May, Diabetes mellitus with chronic kidney disease (ICD-10 - E11.22) He has hjg-terrcxs-n ependent type 2 diabetes and currently takes [...] and has normal B12 and folate level. [employer] Other [id number] Hospital Discharge instructions Patient Education 06/14/2023 09:44:12 [...] include: ?8 oz (237 mL) of milk, nlpufne-rnukuxkzejhh-xtddm milk, and calcium- fortifiedfruit juice. Calcium-fortified means [...] ?Spinach (cooked), rhubarb, beets, sweet potatoes, and Libyan chard. ?Peanuts. ?Potato chips, pitcairn islander fries, and baked potatoes with skin on. ?Nuts and nut products. ?Chocolate. If you regularly take a diuretic medicine, make sure to eat at least 1 or 2 servings of fruits or vegetables that are high in potassium each day. These include: ?Avocado. ?Banana. ?Success, prune, carrot, or tomato juice. ?Baked potato. [...] magnesium, fish oil, or vitamin B6. Take ghfg-sgb-fkzrwfv and prescription medicines only as told by [...] Casseroles. Pizza. Lasagna. Frozen meals. Potato chips. Romanian fries. The items listed above may not [...] provider. Document Revised: 09/23/2022 Document Reviewed: 09/23/2022 [employer] Patient Education 2022 [employer]. Follow Up Care 02/04/2023 14:47:08 With:CARLOS OLIVEROS, Ni Garcia, URL Address: [address] [place] [address] [place], [place] [id number]- When: Unknown [facility] [place] [id number] NoteUT Card[facility] - [facility] Subjective Victorino Smyth is a [...] March of 2013, and then developed acute NE related to ISR of the LAD stent on 09/28/2016 and underwent emergent Promus JOSE RAMON stent to the LAD at [facility], was on Brilinta but currently on aspirin [...] Rfl: liothyronine (more content not included)...[facility] 12-21-2022 [id number]:127[facility]06-26-2023 NoteCystoscopy with Stent Removal ? Voiding [...] Up Care 12/07/2022 13:42:13 With:Ni CARLOS Address: [facility] [place] [id number] [facility] (1) When:6 months Comments:Call for followup [...] those arrangements as well.Have a great day. [facility]06-05-2023 Evaluation note* Encounter Date Diagnosis Assessment Notes Treatment Notes Treatment Clinical Notes Nov, Diabetes mellitus wi th chronic kidney disease (ICD-10 - E11.22) He has rju-ohqnvex-pmnd ndent type 2 diabetes and currently takes [...] and has normal B12 and folate level. [employer] Other [id number] NoteRCRI- 2???points Class III Risk 10.1???% 30-day risk of , NE, or cardiac arrest EKG at last visit [...] and prevent any major fluid shifts. [facility]Un[facility]05-24-2023 NoteCoronary artery disease is stable, angina much improved s/p increased imdur dose and adding ranexa. Continue GDMTUnClermont County Hospital05-24-2023 NotePatient here for 1 mo follow [...] Risk 10.1 % 30-day risk of , NE, or cardiac arrest EKG at last visit SR with 1st Degree AV block- no acute changes. From a cardiology perspective pt may proceed with planned urological procedure, he is a moderate risk for a low-moderate risk procedure. May hold ASA for 5-7 days prior (more content not included)...[facility] 11-17-2022 NoteHypertension is well controlled today 126/60 with increased norvasc and imdur doses Continue norvasc, lisinopril, imdur, Renal function being monitored by nephrologyUnClermont County Hospital 11-17-2022 NoteContinue statin- lipid level well controlledUnClermont County Hospital05-24-2023 [id number]:127 [facility]04-20-2023 NoteContinue statinUnClermont County Hospital04-20-2023 NoteIncrease imdur to 120 mg and start ranexa as per Dr Huynh's recommendationsUnClermont County Hospital04-20-2023 Note Reviewed concerning symptoms and recent [...] shortness of breath or further concerns.[facility]04-20-2023 NoteUTP CARDIOLOGY PROGRESS NOTE HPI: Victorino Smyth is a 82 y.o. male here for Chest Pain, Coronary Artery Disease, and Hypertension Patient here c/o chest tightness/burning with exertion the past few months. Says it feels similar to 2017 when he had an NE. Has been becoming more intense lately. States [...] March of 2013, and then developed acute NE related to ISR of the LAD stent on 09/28/2016 and underwent emergent Promus JOSE RAMON stent to the LAD at [facility], was on Brilinta but currently on aspirin [...] file p (more content not included)...[facility]04-20-2023 NotePatient here c/o chest tightness with exertion the past few months. Says it feels similar to 2017 when he had an NE. Has been becoming more intense lately. Says [...] other systems reviewed and are negative.[facility] 10-07-2022 Hospital Discharge instructions Patient Education [...] Follow these instructions at home: Medicines Take euiu-vdz-mkyxgcr and prescription medicines only as told by [...] 07/02/2008 Document Revised: 09/24/2019 Document Reviewed: 05/04/2017 [employer] Patient Education 2020 [employer] Follow Up Care 09/06/2022 10:38:13 With:Ni OLIVARES Address: [address] [place], [place] [id number] Business (1) When: Unknown Comments:We were able [...] prior to considering any other anesthesia procedures. [facility]04-13-2023 Evaluation + Plan noteExtracted from: Title:KALEN post op Author:Timothy Pittman MD Date:10/07/22 Plan Transfer/Discharge: Transfer/Discharge Discharge when meets criteria ( To home ). Extracted from: Title:KALEN GA Author:Timothy Pittman MD Date:10/07/22 Plan [place] [employer] Anesthesiologists (ASA) physical status classification: Class III. Anesthetic Preoperative Plan: Anesthesia General. Future Appointments Appointment Date:10/29/2022 08:45:00 AM Scheduled Provider:Milton BRAUN MD Location:[facility] Appointment Type:URO Office Visit [facility]03-23-2023 Note [id number]:127[facility] 09-15-2022 Evaluation note* Encounter Date Diagnosis Assessment Notes Treatment Notes Treatment Clinical Notes Aug, Diabetes mellitus wi th chronic kidney disease (ICD-10 - E11.22) He has vla-ukjlsqo-xskx ndent type 2 diabetes and currently takes [...] have advised him to adequately hydrate himself. [employer] Other 03-13-2023 Hospital Discharge instructions Patient Education 09/06/2022 10:27:16 Kidney Stones, Ceod-uj-Wxdj Kidney Stones Kidney stones are rock-like masses [...] Follow these instructions at home: Medicines Take ncam-kvh-xdayumm and prescription medicines only as told by [...] 11/29/2008 Document Revised: 10/30/2019 Document Reviewed: 10/30/2019 [employer] Patient Education 2020 [employer] Follow Up Care 08/17/2022 09:18:37 With:CARLOS OLIVEROS, Ni Garcia, URL Address: [address] [place], [place] [id number]- When: Unknown [facility] [id number] Note [id number]:127[facility] 08-15-2022 Discharge summary Author Hiral Interiano [facility] August 15, 2022 1:50pm Note Date/Time August 15, 2022 1:50pm [facility] [address] [place] [address] Discharge Summary Signed Patient: Victorino Smyth MR#: [id number] : 1940 Acct:[id number] Age/Sex: 82 / M Adm Date: 3 Loc: 4N Room: [id number]: Hiral Interiano MD Copies to: [...] history of nephrolithiasis. He initially presented to [facility] ER with complaint of hypoglycemia and was found to have severe renal failure along with metabolic acidosis and hyperkalemia. CT scan at [place] ER showed atrophic left kidney with obstructing stone in the right ureteropelvic junction. Patient was transferred to [facility] for further intervention. On arrival [...] is also advised to follow-up with his tubing oiler in 4-week. CT scan at [place] ER also showed 0.8 cm nodule on [...] Low-Cholesterol Additional Instructions: Follow-up with your Primary Livestock Breeder in 4 weeks. Avoid NSAIDs for pain [...] office on Tuesday to schedule follow-up with Automotive Paint Technician. ) Documented By: Hiral Interiano MD 08/15/22 [id number] Signed By: <Electronically signed by Hiral Interiano MD> 08/15/22 6479 [facility] Work Phone: 1(279) 639-344602-19-2023 Progress note Author Alicia Perea [facility] August 15, 2022 12:01pm Note Date/Time August 15, 2022 12:01pm [facility] [address] [place] [address] Nephrology Progress Note Signed Patient: Victorino Smyth MR#: [id number] : 1940 Acct:[id number] Age/Sex: 82 / M Adm Date: 3 Loc: Room: [address] [place] [address] Type: ADM IN Attending Dr: Hiral Interiano MD Copies to: ~ Date of Service: 08/15/2022 Subjective Subjective Narrative: This is a 82-year-old male with a medical history of coronary artery disease s/pPCI, nephrolithiasis, CKD, diabetes mellitus, hypertension, dyslipidemia was presented to the emergency room of [facility] for generalized weakness and low urine output. On evaluation emergency room patient was found to have a life- threatening hyperkalemia with serum potassium 7 mmol/L, acute kidney injurywith elevated serum creatinine 17.8 mg/dL, metabolic acidosis serum bicarbonate 13.5 mmol/L. He was given insulin D50 calcium gluconate in the [place] emergency room. He had a CAT scan abdomen pelvis done which showed obstructive kidney stones in the right UPJ and total atrophy of the left kidney. Case was discussed with the on-call urologist Dr. Olivares and recommended patient needs to be n.p.o. for surgical intervention. He was transferred to [facility] for further care. Patient is history of CKD due to the longstanding DM, HTN and recurrent KELSEA with baseline serum creatinine 1.4 to 1.6 mg/dL. He follows in my office for his CKD care. Patient after arrival at [facility] hada repeat labs done which showed [...] visible mass Skin: No rashes or bruises [employer] ADMINISTRATOR: Awake,Alert, following simple command Musculoskeletal: No joint [...] 10 Mg Tablet) 10 mg PO DAILY [facility] Stop: 08/16/23 08:59 Aspirin (Aspirin 81 Mg Tablet.Dr) 81 mg PO DAILY [facility] Stop: 08/12/23 08:59 Last Admin: 08/15/22 09:45 Dose: 81 mg Atorvastatin Calcium (Atorvastatin 40 Mg Tablet) 40 mg PO HS [facility] Stop: 08/11/23 21:59 Last Admin: 08/14/22 21:08 [...] Units/3 Ml Insuln.Pen) 0 units SUBCUT TID.WM.HS [facility]; Protocol Stop: 08/11/23 16:59 Last Admin: 08/15/22 09:46 Dose: 5 units Insulin Glargine (Insulin Glargine 300 Units/3 Ml Insuln.Pen) 5 units SUBCUT DAILY [facility] Stop: 08/13/23 08:59 Last Admin: 08/15/22 09:47 Dose: 5 units Melatonin (Melatonin 5 Mg Tablet) 5 mg PO QHS PRN PRN Reason: insomnia Stop: 08/14/23 21:59 Last Admin: 08/14/22 21:08 Dose: 5 mg Metoprolol Tartrate (Metoprolol Tartrate 50 Mg Tablet) 50 mg PO BID [facility] Stop: 08/11/23 20:59 Last Admin: 08/15/22 09:45 [...] signed by Alicia Perea MD> 08/15/22 1201 [facility] Work Phone: 1(274) 684-139102-19-2023 Progress note Author Cade Alvarez [facility] August 15, 2022 11:31am Note Date/Time August 15, 2022 11:31am [facility] [address] [place] [address] Cardiology Progress Note Signed Patient: Victorino Smyth MR#: [id number] : 1940 Acct:[id number] Age/Sex: 82 / M Adm Date: 3 Loc: 4N Room: [address] [place] [address] Type: ADM IN Attending Dr: Hiral Interiano [...] patient has cardiology follow-up with his primary tubing oiler in [place] within 4 weeks of discharge. (2) CAD (coronary artery disease): Code(s): I25.10 - Atherosclerotic heart disease of [place] coronary artery without angina pectoris Status: Acute [...] signed by Cade Alvarez MD> 08/15/22 1131 [facility] Work Phone: 1(225) 142-621602-18-2023 Progress note Author Hiral Interiano [facility] August 14, 2022 2:57pm Note Date/Time August 14, 2022 2:49pm [facility] [address] [place] [address] Hospitalist Progress Note Signed Patient: Victorino Smyth MR#: [id number] : 1940 Acct:[id number] Age/Sex: 82 / M Adm Date: 3 Loc: 4N Room: [address] [place] [address] Type: ADM IN Attending Dr: Hiral Interiano [...] Vial SUBCUT 08/12/23 21:59 Not Given Q8HR [facility] Hydralazine HCl 10 mg 08/11/22 13:41 08/14/22 [...] Ml Insuln.Pen SUBCUT 08/11/23 16:59 Not Given TID.[facility] Protocol Insulin Glargine 5 units 08/13/22 09:00 08/14/22 11:59 Insulin Glargine 300 Units/3 Ml Insuln.Pen SUBCUT 08/13/23 08:59 5 units DAILY [facility] Administration Metoprolol Tartrate 50 mg 08/11/22 21:00 [...] days. Documented By: Hiral Interiano MD 08/14/22 1587 Signed By: <Electronically signed by Hiral Interiano MD> 08/14/22 1457 [facility] Work Phone: 1(413) 421-883002-18-2023 Progress note Author Alicia Perea [facility] August 14, 2022 11:55am Note Date/Time August 14, 2022 11:55am [facility] [address] [place] [address] Nephrology Progress Note Signed Patient: Victorino Smyth MR#: [id number] : 1940 Acct:[id number] Age/Sex: 82 / M Adm Date: 3 Loc: 4N Room: [address] [place] [address] Type: ADM IN Attending Dr: Hiral Interiano MD Copies to: ~ Date of Service: 08/14/2022 Subjective Subjective Narrative: This is a 82-year-old male with a medical history of coronary artery disease s/pPCI, nephrolithiasis, CKD, diabetes mellitus, hypertension, dyslipidemia was presented to the emergency room of [facility] for generalized weakness and low urine output. On evaluation emergency room patient was found to have a life- threatening hyperkalemia with serum potassium 7 mmol/L, acute kidney injurywith elevated serum creatinine 17.8 mg/dL, metabolic acidosis serum bicarbonate 13.5 mmol/L. He was given insulin D50 calcium gluconate in the [place] emergency room. He had a CAT scan abdomen pelvis done which showed obstructive kidney stones in the right UPJ and total atrophy of the left kidney. Case was discussed with the on-call urologist Dr. Olivares and recommended patient needs to be n.p.o. for surgical intervention. He was transferred to [facility] for further care. Patient is history of CKD due to the longstanding DM, HTN and recurrent KELSEA with baseline serum creatinine 1.4 to 1.6 mg/dL. He follows in my office for his CKD care. Patient after arrival at the [facility] hada repeat labs done which showed [...] visible mass Skin: No rashes or bruises [employer] ADMINISTRATOR: Awake,Alert, following simple command Musculoskeletal: No joint [...] 100 Mg Tablet) 100 mg PO BID [facility] Stop: 08/18/22 20:59 Last Admin: 08/14/22 08:23 [...] 5,000 Unit/Ml Vial) 5,000 unit SUBCUT Q8HR [facility] Stop: 08/12/23 21:59 Last Admin: 08/14/22 06:05 Dose: Not Given Hydralazine HCl (Hydralazine 20 Mg/Ml Vial) 10 mg IV-PUSH Q4H PRN PRN Reason: Hypertension Stop: 08/11/23 13:40 Last Admin: 08/14/22 05:44 Dose: 10 mg Ceftriaxone Sodium (Rocephin) 1 gm in 50 mls @ 100 mls/hr IV Q24H [facility] Stop: 08/14/22 14:14 Last Admin: 08/13/22 15:07 Dose: 100 mls/hr Sodium Chloride (0.9% Sodium Chloride 1,000 Ml) 1,000 mls @ 0 mls/hr MISCELLANE.Q0M PRN PRN Reason: Dialysis Stop: 08/11/23 14:19 Last Infusion: 08/12/22 12:38 Dose: Infused Insulin Aspart (Insulin Aspart 300 Units/3 Ml Insuln.Pen) 0 units SUBCUT TID.[facility]; Protocol Stop: 08/11/23 16:59 Last Admin: 02/18/23 [...] Perez Jr., D.O.08/13/2022 2:25 PM Dictation Location: [place] [address] Any impression(s) listed above is documentation that [...] output Documented By: Alicia Perea MD 08/14/22 3879 Signed By: <Electronically signed by Alicia Perea MD> 08/14/22 7672 [facility] Work Phone: 1(165) 714-560202-18-2023 Progress note Author Cade Alvarez [facility] August 14, 2022 11:21am Note Date/Time August 14, 2022 11:21am [facility] [address] [place] [address] Cardiology Progress Note Signed Patient: Victorino Smyth MR#: [id number] : 1940 Acct:[id number] Age/Sex: 82 / M Adm Date: 3 Loc: 4N Room: [address] [place] [address] Type: ADM IN Attending Dr: Hiral Interiano [...] % (Auto) 79.6 Lymph % (Auto) 7.8 [place] % (Auto) 11.4 Eos % (Auto) 1.0 Baso % (Auto) 0.2 Nucleat RBC Rel Count 0.1 Neut # (Auto) 5.9 Lymph # (Auto) 0.6 L [place] # (Auto) 0.8 Eos # (Auto) 0.1 [...] MPV Neut % (Auto) Lymph % (Auto) [place] % (Auto) Eos % (Auto) Baso % (Auto) Nucleat RBC Rel Count Neut # (Auto) Lymph # (Auto) [place] # (Auto) Eos # (Auto) Baso # [...] make sure that he has follow-up in [facility] within 4 weeks of discharge. (2) CAD (coronary artery disease): Assessment/Problem Details: Stable/quiescent. No ischemic complications with yesterday's urological procedure. Code(s): I25.10 - Atherosclerotic heart disease of [place] coronary artery without angina pectoris Status: Acute Plan: Medical recommendations as above. Plan Thank you very much for this kind consultation and for allowing us to participate in the care of this very pleasant patient Time spent with patient Time Spent With Patient (min): 30 Documented By: Cade Alvarez MD 08/14/22 1118 Signed By: <Electronically signed by Cade Alvarez MD> 08/14/22 1121 [facility] Work Phone: 1(676) 111-996802-17-2023 Progress note Author Hiral Interiano [facility] August 13, 2022 3:09pm Note Date/Time August 13, 2022 3:02pm [facility] [address] [place] [address] Hospitalist Progress Note Signed Patient: Victorino Smyth MR#: [id number] : 1940 Acct:[id number] Age/Sex: 82 / M Adm Date: 3 Loc: 4N Room: 9I5352-0 Type: ADM IN Attending Dr: Hiral Interiano [...] <Electronically signed by Hiral Interiano MD> 08/13/22 1505 [facility] Work Phone: 1([phone]) 742-831602-17-2023 Progress note Author Alicia Perea [facility] August 13, 2022 11:29am Note Date/Time August 13, 2022 11:25am [facility] [address] [place] [address] Nephrology Progress Note Signed Patient: Victorino Smyth MR#: [id number] : 1940 Acct:[id number] Age/Sex: 82 / M Adm Date: 3 Loc: Room: [address] [place] [address] Type: ADM IN Attending Dr: Hiral Interiano MD Copies to: ~ Date of Service: 08/13/2022 Subjective Subjective Narrative: This is a 82-year-old male with a medical history of coronary artery disease s/pPCI, nephrolithiasis, CKD, diabetes mellitus, hypertension, dyslipidemia was presented to the emergency room of [facility] for generalized weakness and low urine output. On evaluation emergency room patient was found to have a life- threatening hyperkalemia with serum potassium 7 mmol/L, acute kidney injurywith elevated serum creatinine 17.8 mg/dL, metabolic acidosis serum bicarbonate 13.5 mmol/L. He was given insulin D50 calcium gluconate in the [place] emergency room. He had a CAT scan abdomen pelvis done which showed obstructive kidney stones in the right UPJ and total atrophy of the left kidney. Case was discussed with the on-call urologist Dr. Olivares and recommended patient needs to be n.p.o. for surgical intervention. He was transferred to [facility] for further care. Patient is history of CKD due to the longstanding DM, HTN and recurrent KELSEA with baseline serum creatinine 1.4 to 1.6 mg/dL. He follows in my office for his CKD care. Patient after arrival at the [facility] hada repeat labs done which showed [...] visible mass Skin: No rashes or bruises [employer] ADMINISTRATOR: Awake,Alert, following simple command Musculoskeletal: No joint [...] 81 Mg Tablet.Dr) 81 mg PO DAILY [facility] Stop: 08/12/23 08:59 Last Admin: 08/13/22 08:44 Dose: Not Given Atorvastatin Calcium (Atorvastatin 40 Mg Tablet) 40 mg PO HS [facility] Stop: 08/11/23 21:59 Last Admin: 08/12/22 21:07 Dose: 40 mg Dextrose (Dextrose 50% In Water 25 Gm/50 Ml Syringe) 0 gm IV-PUSH PRN PRN PRN Reason: Hypoglycemia Stop: 08/11/23 14:01 Glucose (Dextrose 40% Gel 15 Gm Tube) 0 gm PO PRN PRN PRN Reason: Hypoglycemia Stop: 08/11/23 14:01 Guaifenesin (Guaifenesin 600 Mg Tab.Er.12h) 1,200 mg PO BID [facility] [facility]US Stop: 08/12/23 20:59 Last Admin: 08/13/22 08:45 [...] 50 mls @ 100 mls/hr IV Q24H [facility] Last Admin: 08/12/22 16:24 Dose: 100 mls/hr Azithromycin (Zithromax) 500 mg in 250 mls @ 250 mls/hr IV Q24H [facility] Last Admin: 08/12/22 15:06 Dose: 250 mls/hr Sodium Chloride (0.9% Sodium Chloride 1,000 Ml) 1,000 mls @ 0 mls/hr MISCELLANE.Q0M PRN PRN Reason: Dialysis Stop: 08/11/23 14:19 Last Infusion: 08/12/22 12:38 Dose: Infused Insulin Aspart (Insulin Aspart 300 Units/3 Ml Insuln.Pen) 0 units SUBCUT TID..[facility]; Protocol Stop: 08/11/23 16:59 Last Admin: 08/13/22 08:44 Dose: Not Given Insulin Glargine (Insulin Glargine 300 Units/3 Ml Insuln.Pen) 5 units SUBCUT DAILY [facility] Stop: 08/13/23 08:59 Last Admin: 08/13/22 08:45 Dose: Not Given Metoprolol Tartrate (Metoprolol Tartrate 50 Mg Tablet) 50 mg PO BID [facility] Stop: 08/11/23 20:59 Last Admin: 08/13/22 08:45 [...] signed by Alicia Perea MD> 08/13/22 1129 [facility] Work Phone: 1([phone] 356-952102-17-2023 Progress note Author Cade Alvarez [facility] August 13, 2022 9:40am Note Date/Time August 13, 2022 9:35am [facility] [address] [place] [address] Cardiology Progress Note Signed Patient: Victorino Smyth MR#: [id number] : 1940 Acct:[id number] Age/Sex: 82 / M Adm Date: 3 Loc: Room: [address] [place] [address] Type: ADM IN Attending Dr: Hiral Interiano [...] MPV Neut % (Auto) Lymph % (Auto) Otoe % (Auto) Eos % (Auto) Baso % (Auto) Nucleat RBC Rel Count Neut # (Auto) Lymph # (Auto) Otoe # (Auto) Eos # (Auto) Baso # [...] RNA (PCR) IU/mL N/A HCV RNA PCR copywriter log10 N/A Hepatitis C Interp 08/12/22 08/12/22 08/13/22 19:37 21:06 04:28 Corrected WBC 9.9 Uncorrected WBC Count 9.9 RBC 3.54 L Hgb 11.6 L Hct 34.2 L MCV 96.5 MCH 32.9 MCHC 34.1 RDW 13.7 Plt Count 129 L MPV 8.7 Neut % (Auto) 79.2 Lymph % (Auto) 9.6 Otoe % (Auto) 9.8 Eos % (Auto) 0.9 Baso % (Auto) 0.5 Nucleat RBC Rel Count 0.1 Neut # (Auto) 7.8 H Lymph # (Auto) 0.9 L Otoe # (Auto) 1.0 H Eos # (Auto) [...] HCV RNA (PCR) IU/mL HCV RNA PCR copywriter log10 Hepatitis C Interp 08/13/22 08/13/22 04:28 05:25 Corrected WBC Uncorrected WBC Count RBC Hgb Hct MCV MCH MCHC RDW Plt Count MPV Neut % (Auto) Lymph % (Auto) Otoe % (Auto) Eos % (Auto) Baso % (Auto) Nucleat RBC Rel Count Neut # (Auto) Lymph # (Auto) Otoe # (Auto) Eos # (Auto) Baso # [...] HCV RNA (PCR) IU/mL HCV RNA PCR copywriter log10 Hepatitis C Interp A&P - Cardiology [...] Code(s): I25.10 - Atherosclerotic heart disease of [place] coronary artery without angina pectoris Status: Acute Plan: Preoperative recommendations as above. Plan Thank you very much for this kind consultation and for allowing us to participate in the care of this very pleasant patient Time spent with patient Time Spent With Patient (min): 30 Documented By: Cade Alvarez MD 08/13/22 0934 Signed By: <Electronically signed by Cade Alvarez MD> 08/13/22 0940 [facility] Work Phone: 1(315) 727-625602-16-2023 Progress note Author Hiral Interiano [facility] August 12, 2022 4:04pm Note Date/Time August 12, 2022 4:04pm [facility] [address] [place] [address] Hospitalist Progress Note Signed Patient: Victorino Smyth MR#: [id number] : 1940 Acct:[id number] Age/Sex: 82 / M Adm Date: 3 Loc: Room: [address] [place] [address] Type: ADM IN Attending Dr: Hiral Interiano [...] Insuln.Pen SUBCUT 08/11/23 16:59 Not Given TID.WM.HS [facility] Protocol Metoprolol Tartrate 50 mg 08/11/22 21:00 [...] kidney disease: Plan: Patient was transferred from [place] ER when found to have acute kidney [...] <Electronically signed by Hiral Interiano MD> 08/12/22 0969 [facility] Work Phone: [phone] 265-421602-16-2023 Progress note Author Alicia Perea [facility] August 12, 2022 11:29am Note Date/Time August 12, 2022 11:24am [facility] [address] [place] [address] Nephrology Progress Note Signed Patient: Victorino Smyth MR#: [id number] : 1940 Acct:[id number] Age/Sex: 82 / M Adm Date: 3 Loc: Room: [address] [place] [address] Type: ADM IN Attending Dr: Hiral Interiano MD Copies to: ~ Date of Service: 08/12/2022 Subjective Subjective Narrative: This is a 82-year-old male with a medical history of coronary artery disease s/pPCI, nephrolithiasis, CKD, diabetes mellitus, hypertension, dyslipidemia was presented to the emergency room of [facility] for generalized weakness and low urine output. On evaluation emergency room patient was found to have a life- threatening hyperkalemia with serum potassium 7 mmol/L, acute kidney injurywith elevated serum creatinine 17.8 mg/dL, metabolic acidosis serum bicarbonate 13.5 mmol/L. He was given insulin D50 calcium gluconate in the [place] emergency room. He had a CAT scan abdomen pelvis done which showed obstructive kidney stones in the right UPJ and total atrophy of the left kidney. Case was discussed with the on-call urologist Dr. Olivares and recommended patient needs to be n.p.o. for surgical intervention. He was transferred to [facility] for further care. Patient is history of CKD due to the longstanding DM, HTN and recurrent KELSEA with baseline serum creatinine 1.4 to 1.6 mg/dL. He follows in my office for his CKD care. Patient after arrival at the [facility] hada repeat labs done which showed [...] visible mass Skin: No rashes or bruises [employer] ADMINISTRATOR: Awake,Alert, following simple command Musculoskeletal: No joint [...] 50 mls @ 100 mls/hr IV Q24H [facility] Last Infusion: 08/11/22 21:49 Dose: Infused Azithromycin (Zithromax) 500 mg in 250 mls @ 250 mls/hr IV Q24H [facility] Last Admin: 08/11/22 16:00 Dose: 250 mls/hr Sodium Chloride (0.9% Sodium Chloride 1,000 Ml) 1,000 mls @ 0 mls/hr MISCELLANE.Q0M PRN PRN Reason: Dialysis Stop: 08/11/23 14:19 Last Admin: 08/12/22 10:24 Dose: 999 mls/hr Insulin Aspart (Insulin Aspart 300 Units/3 Ml Insuln.Pen) 0 units SUBCUT TID.[facility]; Protocol Stop: 08/11/23 16:59 Last Admin: 08/12/22 08:07 Dose: Not Given Metoprolol Tartrate (Metoprolol Tartrate 50 Mg Tablet) 50 mg PO BID [facility] Stop: 08/11/23 20:59 Last Admin: 08/12/22 08:20 [...] Rehan Fuentes M.D.08/11/2022 4:10 PM Dictation Location: [place] [address] Any impression(s) listed above is documentation that [...] signed by Alicia Perea MD> 08/12/22 1129 [facility] Work Phone: [phone] 711-453902-16-2023 Progress note Author Cade Alvarez [facility] August 12, 2022 10:04am Note Date/Time August 12, 2022 10:05am [facility] [address] [place] [address] Cardiology Progress Note Signed Patient: Victorino Smyth MR#: [id number] : 1940 Acct:[id number] Age/Sex: 82 / M Adm Date: 3 Loc: Room: [address] [place] [address] Type: ADM IN Attending Dr: Hiral Interiano [...] % (Auto) N/A Lymph % (Auto) N/A Otoe % (Auto) N/A Eos % (Auto) N/A Baso % (Auto) N/A Nucleat RBC Rel Count N/A Neut # (Auto) N/A Lymph # (Auto) N/A Otoe # (Auto) N/A Eos # (Auto) N/A [...] MPV Neut % (Auto) Lymph % (Auto) [place]e % (Auto) Eos % (Auto) Baso % (Auto) Nucleat RBC Rel Count Neut # (Auto) Lymph # (Auto) O[place]e # (Auto) Eos # (Auto) Baso # [...] MPV Neut % (Auto) Lymph % (Auto) [place] % (Auto) Eos % (Auto) Baso % (Auto) Nucleat RBC Rel Count Neut # (Auto) Lymph # (Auto) [place]e # (Auto) Eos # (Auto) Baso # [...] % (Auto) 88.0 Lymph % (Auto) 4.4 Otoe % (Auto) 7.4 Eos % (Auto) 0.0 Baso % (Auto) 0.2 Nucleat RBC Rel Count 0.0 Neut # (Auto) 11.8 H Lymph # (Auto) 0.6 L [place]toe # (Auto) 1.0 H Eos # (Auto) [...] MPV Neut % (Auto) Lymph % (Auto) [place] % (Auto) Eos % (Auto) Baso % (Auto) Nucleat RBC Rel Count Neut # (Auto) Lymph # (Auto) [place] # (Auto) Eos # (Auto) Baso # [...] Code(s): I25.10 - Atherosclerotic heart disease of [place] coronary artery without angina pectoris Status: Acute Plan: Preoperative recommendations as above. Plan Thank you very much for this kind consultation and for allowing us to participate in the care of this very pleasant patient Time spent with patient Time Spent With Patient (min): 30 Documented By: Cade Alvarez MD 08/12/22 0959 Signed By: <Electronically signed by Cade Alvarez MD> 08/12/22 1009 [facility] Work Phone: [phone]) 588-394902-15-2023 Consult note Author Alicia Perea [facility] August 11, 2022 5:46pm Note Date/Time August 11, 2022 4:00pm [facility] [address] [place] [address] Nephrology Consult Note Signed with Nancy Patient: Victorino Smyth MR#: [id number] : 1940 Acct:[id number] Age/Sex: 82 / M Adm Date: 3 Loc: Room: [address] [place] [address] Type: ADM IN Attending Dr: Hiral Interiano [...] was presented to the emergency room of [facility] for generalized weakness and low urine output. On evaluation emergency room patient was found to have a life- threatening hyperkalemia with serum potassium 7 mmol/L, acute kidney injurywith elevated serum creatinine 17.8 mg/dL, metabolic acidosis serum bicarbonate 13.5 mmol/L. He was given insulin D50 calcium gluconate in the [place] emergency room. He had a CAT scan abdomen pelvis done which showed obstructive kidney stones in the right UPJ and total atrophy of the left kidney. Case was discussed with the on-call urologist Dr. Olivares and recommended patient needs to be n.p.o. for surgical intervention. He was transferred to [facility] for further care. Patient is history of CKD due to the longstanding DM, HTN and recurrent KELSEA with baseline serum creatinine 1.4 to 1.6 mg/dL. He follows in my office for his CKD care. Patient after arrival at the [facility] hada repeat labs done which showed [...] 81 Mg Tablet.Dr) 81 mg PO DAILY [facility] Stop: 08/12/23 08:59 Atorvastatin Calcium (Atorvastatin 40 Mg Tablet) 40 mg PO HS [facility] Stop: 08/11/23 21:59 Dextrose (Dextrose 50% In [...] 50 mls @ 100 mls/hr IV Q24H [facility] Azithromycin (Zithromax) 500 mg in 250 mls @ 250 mls/hr IV Q24H [facility] Sodium Chloride (0.9% Sodium Chloride 1,000 Ml) 1,000 mls @ 0 mls/hr MISCELLANE .Q0M PRN PRN Reason: Dialysis Stop: 08/11/23 14:19 Insulin Aspart (Insulin Aspart 300 Units/3 Ml Insuln.Pen) 0 units SUBCUT TID.[facility]; Protocol Stop: 08/11/23 16:59 Metoprolol Tartrate (Metoprolol Tartrate 50 Mg Tablet) 50 mg PO BID [facility] Stop: 08/11/23 20:59 Nitroglycerin (Nitroglycerin 0.4 Mg [...] visible mass Skin: No rashes or bruises [employer] ADMINISTRATOR: Awake,Alert, following simple command Musculoskeletal: No joint [...] Patient consented for dialysis. I consulted the tying in machine operator for hemodialysis catheter placement which was placed [...] team. Documented By: Alicia Perea MD 08/11/22 1581 Signed By: <Electronically signed by Alicia Perea MD> 08/11/22 4201 [facility] Work Phone: 1(114) [phone] Consult note Author Cade Alvarez [facility] August 11, 2022 4:47pm Note Date/Time August 11, 2022 4:36pm [facility] [address] [place] [address] Cardiology Consult Note Signed Patient: Victorino Smyth MR#: [id number] : 1940 Acct:[id number] Age/Sex: 82 / M Adm Date: 3 Loc: Room: [address] [place] [address] Type: ADM IN Attending Dr: Hiral Interiano [...] syndrome in 2017. Patient initially presented to [place] emergency department complaining of shortness of breath [...] # (Auto) N/A Lymph # (Auto) N/A Otoe # (Auto) N/A Eos # (Auto) N/A [...] nonspecific abnormality, ST segment, and/or T wave NE, pacemaker, normal Normal tracing: no change compared [...] Code(s): I25.10 - Atherosclerotic heart disease of [place] coronary artery without angina pectoris Plan Thank you very much for this kind consultation and for allowing us to participate in the care of this very pleasant patient Documented By: Cade Alvarez MD 08/11/22 1634 Signed By: <Electronically signed by Cade Alvarez MD> 08/11/22 1647 [facility] Work Phone: [phone] Consult note Author Ni Olivares [facility] August 11, 2022 3:24pm Note Date/Time August 11, 2022 3:24pm [facility] [address] [place] [address] Urology Consult Note Signed Patient: Victorino Smyth MR#: [id number] : 1940 Acct:[id number] Age/Sex: 82 / M Adm Date: 3 Loc: Room: [address] [place] [address] Type: ADM IN Attending Dr: Hiral Interiano MD Copies to: MD Ni James MD Mazhar Rahman, MD~ History of Present Illness Consult Details Consult Date: 08/11/2022 Requesting Provider: Hiral Interiano MD HPI: Mr. Smyth is an 82-year-old man transferred from the [facility]. The patient presented with some [...] the emergency room prior to transfer to [facility]. He finished breakfast at about 11 [...] % (Auto) N/A, Lymph % (Auto) N/A, Otoe % (Auto) N/A, Eos % (Auto) N/A, Baso % (Auto) N/A, Nucleat RBC Rel Count N/A, Neut # (Auto) N/A, Lymph # (Auto) N/A, Otoe # (Auto) N/A, Eos # (Auto) N/A, [...] actually worse than that noted at the [facility] at a current level of 7.4. [...] indicated. Documented By: Ni Olivares MD 08/11/22 1519 Signed By: <Electronically signed by MD Ni Olivares> 08/11/22 2587 [facility] Work Phone: 1(920) 303-337202-15-2023 History and physical note Author Hiral Interiano [facility] August 11, 2022 2:02pm Note Date/Time August 11, 2022 2:02pm [facility] [address] [place] [address] Hospitalist H&P Signed Patient: Victorino Smyth MR#: [id number] : 1940 Acct:[id number] Age/Sex: 82 / M Adm Date: 02/15/2 3 Loc: Room: 5Z0065-6 Type: ADM IN Attending Dr: Hiral Interiano [...] of nephrolithiasis. Patient has been transferred from [facility] ER for acute kidney injury and [...] repeated labs available in the record from [facility]. Chest x-ray read as mild bilateral [...] a similar feeling when he had an NE in 2017 and prior to that in [...] negative unless noted below or in HPI [facility] Medical History (Updated 08/11/22 @ 13:59 by [...] type 2. He has been transferred from [place] ER for obstructive uropathy with worsening renal failure and hyperkalemia. I was informed the patient was given cocktail for hyperkalemia with no repeated labs available in the record. Patient arrival to floor complaining of midsternal discomfort and mentioned having similar feeling when he had an NE. Does appear tachypneic likely from metabolic acidosis. [...] signed by Hiral Interiano MD> 08/11/22 1402 [facility] Work Phone: 1(140) 699-992202-15-2023 [facility]* Encounter Date Diagnosis Assessment Notes Treatment Notes Treatment Clinical Notes May, Diabetes mellitus wi th chronic kidney disease (ICD-10 - E11.22) He has qyo-sytiqbb-bqyq ndent type 2 diabetes and currently takes [...] have advised him to adequately hydrate himself. [employer] Other 08-11-2022 NotePROCEDURE: XR KNEE LT 4V or > COMPARISON: None. HISTORY: Pain of left knee joint FINDINGS: BONES:No acute fracture or dislocation. Minimal degenerative changes. SOFT TISSUES:Negative. No visible soft tissue swelling. EFFUSION:None visible. OTHER: Vascular calcification IMPRESSION: No acute abnormality Electronically authenticated by: TYLER MONSIVAIS Date: 2022-02-04 07:23[facility]05-31-2022 Evaluation note* Encounter Date Diagnosis Assessment Notes Treatment Notes Treatment Clinical Notes October, Diabetes mellitus wi th chronic kidney disease (ICD-10 - E11.22) He has gto-utvisha-rdntc dent type 2 diabetes and currently takes [...] have advised him to adequately hydrate himself. [employer] Other 05-02-2022 Hospital Discharge instructions Follow Up Care 10/26/2021 10:06:54 With:KADE OLIVEROS, Milton Brewer, URL Address: [address] [place] [address]- When: Unknown [facility] Charito 05-02-2022 Hospital Discharge instructions Patient Education [...] 06/13/2006 Document Revised: 03/02/2019 Document Reviewed: 05/13/2017 [employer] Patient Education 2020 [employer]. 10/26/2021 09:44:44 Urinary Frequency, Adult Urinary Frequency, [...] to keep your urine pale yellow. ?Take xcza-rjs-qikwwnc or prescription medicines. ?Eat foods that are high in fiber, such as beans, whole grains, and fresh fruits and vegetables. ?Limit foods that are high in fat and processed sugars, such as fried or sweet foods. General instructions Take ndth-ayx-jnyepnp and prescription medicines only as told by [...] the muscles that help control urination. Take mqmi-ezz-colqcmy and prescription medicines only as told by your health care provider. Contact a health care provider if your symptoms do not improve or get worse. This information is not intended to replace advice given to you by your health care provider. Make sure you discuss any questions you have with your health care provider. Document Released: 04/09/2010 Document Revised: 12/21/2018 Document Reviewed: 12/21/2018 [employer] Patient Education 2020 [employer]. 10/26/2021 09:44:41 Kidney Stones, Zaya-ri-Assr Kidney Stones Kidney stones are rock-like masses [...] Follow these instructions at home: Medicines Take slud-ock-vljffdz and prescription medicines only as told by [...] 11/29/2008 Document Revised: 10/30/2019 Document Reviewed: 10/30/2019 [employer] Patient Education 2019 [employer]. Follow Up Care 02/23/2021 14:09:11 With:KADE OLIVEROS, Milton Brewer, SUEL Address: [facility] [address], [place] [address]- When:10/26/2022 [facility] 11-30-2021 Evaluation note* Encounter Date Diagnosis Assessment Notes Treatment Notes Treatment Clinical Notes Apr, Diabetes mellitus wi th chronic kidney disease (ICD-10 - E11.22) He has aer-ducbsim-gmhhp dent type 2 diabetes and currently takes [...] have advised him to adequately hydrate himself. [employer] Other Evaluation + Plan note Future Appointments Appointment Date:10/29/2022 08:45:00 AM Scheduled Provider:Milton BRAUN MD Location:[facility] Appointment Type:URO Office Visit [facility] evaluation + Plan note Future Appointments Appointment Date:09/14/2022 07:30:00 AM Scheduled Provider: Location:[facility] Appointment Type:Surgical PAT FT Appointment Date:10/07/2022 12:00:00 PM Scheduled Provider: Location:[facility] Appointment Type:Surgery FT Appointment Date:10/29/2022 08:45:00 AM Scheduled Provider:Milton BRAUN MD Location:[facility] Appointment Type:URO Office Visit [facility] Evaluation + Plan note Future Appointments Appointment Date:11/18/2022 10:30:00 AM Scheduled Provider: Location:[facility] Appointment Type:Surgical PAT FT Appointment Date:12/02/2022 11:45:00 AM Scheduled Provider: Location:[facility] Appointment Type:Surgery FT [facility] evaluation + Plan note Future Appointments Appointment Date:06/12/2024 11:00:00 AM Scheduled Provider:Ni OLIVARES MD Location:[facility] Appointment Type:URO Office Visit Future Scheduled Tests Laboratory* Total Protein 24 Hour Urine 02/14/23 [facility] Evaluation note* Diagnosis Onset Date Resolution Status Acute kidney injury superimp osed on chronic kidney disease acute Acute kidney insufficiency a cute CAD (coronary artery disease) acute CKD (chronic kidney disease) stage 3, GFR 30-59 ml/min acute Elevated PSA acute Hydronephrosis with ureteral calculus acute Hyperkalemia acute [id number] acute Left renal atrophy acute Metabolic acidosis acute Obstructive nephropathy acut e Preoperative cardiovascular examination acute Right ureteral stone acute 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 Diabetes chronic [facility] Work Phone: Evaluation noteNo assessment information available [facility] Work Phone: Hisiswr general Narrative - Reported* Type Description Date Medical History DIABETES MELLITUS Medical History CORONARY ARTERY DISEASE Medical History MORBID OSESITY Surgical History HERNEA LOWER RIGHT ABDOMINAL Surgical History HEART ATTACK WITH STENT PLACEME NT IN THE LAD Surgical History KIDNEY STENTS X 2 Surgical History PROSTRATE BIO PAD Surgical History KIDNEY STENTS X2 Surgical History KIDNEY STONE REMOVAL Hospitalization History SEE ABOVE [employer] Other Hisguny general Narrative - Reported* Type Description Date [...] KIDNEY STONE REMOVAL Hospitalization History SEE ABOVE [employer] Other History general Narrative - Reported* Type [...] KIDNEY STONE REMOVAL Hospitalization History SEE ABOVE [employer] Other Hisihwc general Narrative - Reported* Type Description Date [...] History KELSEA, HYPERKALEMIA, METAB OLIC ACIDOSIS 08/11/2022 [employer] Other Hospital course Narrative No data available for this section [facility] Hospital Discharge instructions Additional Instructions Follow-up with your Primary Livestock Breeder in 4 weeks. Avoid NSAIDs for pain control. Call [facility] Scheduling on Tuesday at [phone] to arrange a follow up CT scan regarding lung nodule in 4 weeks. Maintain occlussive dressing to HD catheter removal site for 48 hours - return to the Emergency Room for oozing or drainage from catheter exit site, noticeable swelling or itching around neck, shortness of [facility]: Progress note No data available for this section [facility] Chief Complaint and Reason for Visit Chief Complaint ACUTE RENAL FAILURE Reason for Visit Acute kidney injury superimposed on chronic kidney disease Acute kidney insufficiency CAD (coronary artery disease) CKD (chronic kidney disease) stage 3, GFR 30-59 ml/min Elevated PSA Hydronephrosis with ureteral calculus Hyperkalemia [id number] Left renal atrophy Metabolic acidosis Obstructive nephropathy [...] Kiser MD Other Provider Active Jen Tamayo [facility]- Other Provider Active Aaliyah Mitchell MD Other Provider Active Alicia Perea MD Other Provider Active Milton Braun MD Other Provider Active Ni Olivaers MD Other Provider Active Yogesh Omalley MD [...] section and content) DATE CREATED AUTHOR 10/03/2022 [facility] DATE CREATED AUTHOR AUTHOR'S ORGANIZ ATION 12/07/2022 Coreen bran DATE CREATED AUTHOR AUTHOR'S ORGANIZ ATION 01/27/2023 [facility] DATE CREATED AUTHOR AUTHOR'S ORGANIZ ATION 07/05/2023 [facility] DATE CREATED AUTHOR AUTHOR'S ORGANIZ ATION 07/07/2023 [...] BE BASED ON THE PRIMARY CLINICAL RECORDS. [employer] provides no warranty or guarantee of the accuracy or completeness of information in this document.
[2023-07-29] MEDS: IPRATROPIUM/ALBUTEROL SULFATE 3 ML AMPUL.NEB IH (20:08)
[2023-07-29 20:23] LABS: Troponin I High Sensitivity 7.5 pg/mL (4.0-76.1)
[2023-07-29 20:50] LABS: Glucometer 203 mg/dL (74-106)
[2023-07-29] MEDS: LACTATED RINGER'S SOLUTION 1,000 ML 1000 ML IV ×2 (21:21→22:23)
[2023-07-29] MEDS: RANOLAZINE 500 MG TAB.ER.12H PO (21:22)
[2023-07-29] MEDS: INSULIN ASPART 300 UNIT/3 ML PEN SUBQ (21:22)
[2023-07-30] VITALS (10 sets, daily range): BP systolic 103–145; BP diastolic 54–66; PULSE 80–99; RESP 18–20; TEMP 36.2–37.2; O2SAT 86–95
[2023-07-30] MEDS: IMIPENEM/CILASTATIN SODIUM 500 MG in 0.9 % SODIUM CHLORIDE 100 ML 100 MG IV ×5 (00:34→23:59)
[2023-07-30] MEDS: IPRATROPIUM/ALBUTEROL SULFATE 3 ML AMPUL.NEB IH ×4 (05:07→20:41)
[2023-07-30] MEDS: LEVOTHYROXINE SODIUM 25 MCG TABLET 50 MCG PO (05:39)
[2023-07-30 06:04] LABS: Basophils Percent Auto 0.2 % (0.2-2.0); Eosinophils Absolute Auto 0.1 10^3/uL (0.0-0.7); Eosinophils Percent Auto 0.9 % (0.9-7.0); Hematocrit 29.9 % (42.0-54.0); Hemoglobin 9.4 g/dL (14.0-18.0); Immature Granulocytes Abs Auto 0.09 10^3/uL (0.00-0.03); Immature Granulocytes Pct Auto 0.8 % (0.0-0.5); Lymphocytes Absolute Auto 0.5 10^3/uL (1.2-3.8); Lymphocytes Percent Auto 4.7 % (20.5-60.0); Mean Corpuscular HGB Conc 31.4 g/dL (29.9-35.2); Mean Corpuscular Hemoglobin 32.5 pg (25.9-34.0); Mean Corpuscular Volume 103.5 fL (80.0-94.0); Monocytes Absolute Auto 0.4 10^3/uL (0.3-0.8); Monocytes Percent Auto 3.7 % (1.7-12.0); Neutrophils Absolute Auto 10.2 10^3/uL (1.4-6.5); Neutrophils Percent Auto 89.7 % (43.0-75.0); Platelet Count 144 10^3/uL (150-450); Red Blood Count 2.89 10^6/uL (4.70-6.10); Red Cell Distribution Width 13.9 % (11.0-15.0); White Blood Count 11.4 10^3/uL (4.0-11.0)
[2023-07-30 06:26] LABS: Alanine Aminotransferase 48 U/L (16-63); Albumin Globulin Ratio 0.5; Albumin Level 1.7 g/dL (3.4-5.0); Alkaline Phosphatase 60 U/L (46-116); Anion Gap 13.2; Aspartate Amino Transferase 49 U/L (15-37); BUN Creatinine Ratio 15.5; Bilirubin Total 0.5 mg/dL (0.2-1.0); Calcium 7.9 mg/dL (8.5-10.1); Carbon Dioxide 20.8 mmol/L (21.0-32.0); Chloride 108 mmol/L (98-107); Estimated GFR (African America 35 (>=60); Estimated GFR (Non-African Ame 29 (>=60); Globulin 3.6 g/dL; Glucose 126 mg/dL (74-106); Sodium 138 mmol/L (136-145); Total Protein 5.3 g/dL (6.4-8.2)
[2023-07-30] MEDS: ASPIRIN 81 MG TAB.CHEW PO (09:14)
[2023-07-30] MEDS: ISOSORBIDE MONONITRATE 60 MG TAB.ER.24H 120 MG PO (09:14)
[2023-07-30] MEDS: SITAGLIPTIN PHOSPHATE 50 MG TABLET 100 MG PO (09:14)
[2023-07-30] MEDS: METOPROLOL TARTRATE 50 MG TABLET PO (09:14)
[2023-07-30] MEDS: LIOTHYRONINE SODIUM 5 MCG TABLET PO (09:14)
[2023-07-30] MEDS: RANOLAZINE 500 MG TAB.ER.12H PO ×2 (09:14→21:10)
[2023-07-30] MEDS: DEXAMETHASONE SOD PHOS 10 MG/ML VIAL 6 MG PO (09:15)
[2023-07-30] MEDS: KETOCONAZOLE 15 APPLIC TUBE TOPICAL (09:16)
--- NOTE | 2023-07-30 09:51 | P.HP_ITS ---
H&P: HPI History of Present Illness Chief complaint: BLOOD PRESSURE CHECK Covid Pneumonia Narrative: Patient he called the office, blood pressure readings at home are low, recommended ER evaluation secondary to recent intra-abdominal abscess from ruptured appendix. Status post drainage. In ER workup found patient had no significant abdominal tenderness. White blood cell count was elevated, Vitals: Was hypotensive improved with fluids. COVID testing showed positive COVID. Due to the severity of symptoms and recent illness patient was admitted to observation Review of Systems ROS Status of ROS 10 or more systems reviewed and unremark able except as noted in history and below PFSH [facility] Medical History (Updated 07/29/23 @ 16:53 by Tesha Dowell) Acute appendicitis ?K35.80 - Unspecified acute appendicitis (ICD-10) Thyroid condition ?E07.9 - Disorder of thyroid, unspecified (ICD-10) Diabetes ?E11.9 - Type 2 diabetes mellitus without complications (ICD-10) Hypertension ?I10 - Essential (primary) hypertension (ICD-10) Surgical History (Updated 07/19/23 @ 16:19 by Delaney Lanier) H/O hernia repair ?Z98.890 - Other specified postprocedural states (ICD-10) ?Z87.19 - Personal history of other diseases of the digestive system (ICD-10) H/O heart artery stent ?Z95.5 - Presence of coronary angioplasty implant and graft (ICD-10) Social History Smoking status: Former smoker Highest level of school completed/degree received: some college, no degree Meds Home Medications and Allergies Home Medications Medication Instructions Recorded Confirmed Type albuterol sulfate 90 mcg/actuation 1 inh inhalation Q4H PRN shortness 07/19/23 07/30/23 History aerosol inhaler of breath or wheezing amlodipine 10 mg tablet 10 mg PO DAILY 07/19/23 07/29/23 History aspirin 81 mg capsule 81 mg PO DAILY 07/19/23 07/29/23 History atorvastatin 80 mg tablet 80 mg PO QPM 07/19/23 07/29/23 History iqckxkskbdx-[id number]-uox-calcium-155herb 1 tab PO BID 07/19/23 07/29/23 History 375 mg-150 mg-125 mg tablet isosorbide mononitrate 60 mg 120 mg PO DAILY 07/19/23 07/29/23 History tablet,extended release 24 hr ketoconazole 2 % topical cream 1 applic topical DAILY 07/19/23 07/29/23 History levothyroxine 50 mcg tablet 50 mcg PO DAILY 07/19/23 07/29/23 History liothyronine 5 mcg tablet 5 mcg PO DAILY 07/19/23 07/29/23 History lisinopril 20 mg tablet 20 mg PO DAILY 07/19/23 07/29/23 History metoprolol tartrate 50 mg tablet 50 mg PO Q12H 07/19/23 07/29/23 History nitroglycerin 0.4 mg sublingual 0.4 mg sublingual Q5M PRN chest 07/19/23 07/29/23 History tablet pain pioglitazone 15 mg tablet 15 mg PO DAILY 07/19/23 07/29/23 History ranolazine 500 mg tablet,extended 500 mg PO Q12H 07/19/23 07/29/23 History release,12 hr tiotropium bromide 2.5 2 inh inhalation Q24H 07/19/23 07/29/23 History mcg/actuation mist for inhalation (Spiriva Respimat) glimepiride 4 mg tablet 8 mg PO DAILY 07/29/23 07/30/23 History Allergies Allergy/AdvReac Type Severity Reaction Status Date / Time ciprofloxacin [From Cipro] Allergy Intermediate Verified 07/20/23 08:12 Penicillins Allergy Intermediate Verified 07/20/23 08:12 Exam Constitutional Vital Signs, click to edit/add: Last Vital Signs Temp 99 F 07/30/23 05:05 Pulse 99 H 07/30/23 05:07 Resp 20 07/30/23 05:07 BP 139/58 07/30/23 05:05 Pulse Ox 90 L 07/30/23 05:07 O2 Del Method Room Air 07/30/23 05:07 O2 Flow Rate 2 07/30/23 05:05 Documenting provider has reviewed patient's vital signs: yes Common normals: no apparent distress Respiratory Common normals: normal respiratory effort and no retractions; not clear to ascultation bilaterally (Diffuse rhonchi consistent with COVID- pneumonia) Cardio Common normals: regular rate and regular rhythm GI Common normals: Normal to inspection, nondistended, normoactive bowel sounds present (minimal tenderness); tender (Minimal diffuse tenderness) Extremity Common normals: normal to inspection and full ROM Results Labs Labs: Short CBC 07/29/23 07/30/23 Range/Units 15:15 05:00 WBC 14.9 H 11.4 H (4.0-11.0) 10^3/uL Hgb 10.4 L 9.4 L (14.0-18.0) g/dL Hct 32.5 L 29.9 L (42.0-54.0) % Plt Count 181 144 L (150-450) 10^3/uL BMP 07/29/23 07/30/23 15:15 05:00 Sodium 137 138 Potassium 4.3 4.0 Chloride 104 108 H Carbon Dioxide 22.8 20.8 L BUN 35.0 H 34.0 H Creatinine 2.89 H 2.20 H Glucose 184 H 126 H Calcium 8.3 L 7.9 L Liver Function 07/29/23 07/30/23 Range/Units 15:15 05:00 Total Bilirubin 0.8 0.5 (0.2-1.0) mg/dL AST 37 49 H (15-37) U/L ALT 45 48 (16-63) U/L Alkaline Phosphatase 68 60 (46-116) U/L Albumin 2.1 L 1.7 L (3.4-5.0) g/dL Assessment and Plan Assessment and Plan (1) Pneumonia: (2) COVID: Plan Sinus tachycardia, leukocytosis, thrombocythemia, mild acute kidney injury, acute hypoxia with O2 saturations less than 86%, deteriorated overnight. 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 With progression of symptoms overnight considerations for restarting remdesivir but since Paxlovid is already started we will maintain that. Continue steroids, antibiotics, continue with breathing treatments Recent appendiceal abscess. Drained. No change in abdominal pain. Consider further studies if pain worsens. Continue with current antibiotics Hypertension with coronary artery disease continue with home medications NIDDM-insulin sliding scale. Hypothyroidism-continue with home medications Patient initially placed in observation, condition deteriorated overnight with significant O2 saturation secondary to COVID-19 pneumonia-continue supplemental oxygen, titrate down if possible, with the deterioration in condition over the first midnight patient will be admitted to inpatient status due to intensity of treatment spanning a minimum of 2 midnights.
[2023-07-30 11:56] LABS: Glucometer 248 mg/dL (74-106)
[2023-07-30] MEDS: BENZOCAINE/MENTHOL SORE THROAT LOZENGE 1 LOZENGE PO (12:38)
[2023-07-30] MEDS: 0.9 % SODIUM CHLORIDE 250 ML 10 ML IV (12:38)
[2023-07-30] MEDS: INSULIN ASPART 300 UNIT/3 ML PEN SUBQ ×3 (12:39→21:15)
[2023-07-30] MEDS: BENZONATATE 100 MG CAPSULE 200 MG PO (13:56)
[2023-07-30 16:13] LABS: Glucometer 208 mg/dL (74-106)
[2023-07-30] MEDS: AZITHROMYCIN 500 MG in 0.9 % SODIUM CHLORIDE 250 ML 250 MG IV (16:47)
[2023-07-30 20:32] LABS: Glucometer 305 mg/dL (74-106)
[2023-07-30] MEDS: ENSURE HP 237 ML LIQUID PO (21:10)
[2023-07-31 00:55] VITALS: O2SAT 93
[2023-07-31 02:26] VITALS: BP 142/71; PULSE 90; RESP 20; TEMP 36.1; O2SAT 94
--- NOTE | 2023-07-31 02:27 | PC.NURSE ---
Patient put account resolution analyst light stating I don't feel good Gown was damp with sweat. Patient denies shortness of breath, chest pain, or dizziness. Temp 97.0 and BP 142/71, heart rate 90, and pulse ox 94% on 2L . Patient was assisted in a bed bath, linens changed and patient stated I feel so much better Call light within reach
[2023-07-31 05:00] VITALS: O2SAT 96
[2023-07-31] MEDS: IMIPENEM/CILASTATIN SODIUM 500 MG in 0.9 % SODIUM CHLORIDE 100 ML 100 MG IV (05:25)
[2023-07-31 05:34] VITALS: BP 136/69; PULSE 87; RESP 20; TEMP 36.3; O2SAT 97
[2023-07-31 05:57] LABS: Hematocrit 29.8 % (42.0-54.0); Hemoglobin 9.7 g/dL (14.0-18.0); Immature Granulocytes Abs Auto 0.07 10^3/uL (0.00-0.03); Immature Granulocytes Pct Auto 0.9 % (0.0-0.5); Lymphocytes Absolute Auto 0.4 10^3/uL (1.2-3.8); Lymphocytes Percent Auto 5.2 % (20.5-60.0); Mean Corpuscular HGB Conc 32.6 g/dL (29.9-35.2); Mean Corpuscular Hemoglobin 32.7 pg (25.9-34.0); Mean Corpuscular Volume 100.3 fL (80.0-94.0); Mean Platelet Volume 10.9 fL (9.5-13.5); Monocytes Absolute Auto 0.1 10^3/uL (0.3-0.8); Monocytes Percent Auto 1.8 % (1.7-12.0); Neutrophils Absolute Auto 7.1 10^3/uL (1.4-6.5); Neutrophils Percent Auto 92.1 % (43.0-75.0); Platelet Count 168 10^3/uL (150-450); Red Blood Count 2.97 10^6/uL (4.70-6.10); Red Cell Distribution Width 13.7 % (11.0-15.0); White Blood Count 7.7 10^3/uL (4.0-11.0)
[2023-07-31] MEDS: LEVOTHYROXINE SODIUM 25 MCG TABLET 50 MCG PO (06:02)
[2023-07-31 06:24] LABS: Alanine Aminotransferase 52 U/L (16-63); Albumin Globulin Ratio 0.5; Albumin Level 1.9 g/dL (3.4-5.0); Alkaline Phosphatase 62 U/L (46-116); Anion Gap 14.5; Aspartate Amino Transferase 42 U/L (15-37); BUN Creatinine Ratio 17.8; Bilirubin Total 0.3 mg/dL (0.2-1.0); Calcium 8.4 mg/dL (8.5-10.1); Carbon Dioxide 20.1 mmol/L (21.0-32.0); Chloride 107 mmol/L (98-107); Estimated GFR (African America 43 (>=60); Estimated GFR (Non-African Ame 35 (>=60); Globulin 3.8 g/dL; Glucose 214 mg/dL (74-106); Potassium 4.6 mmol/L (3.5-5.1); Sodium 137 mmol/L (136-145); Total Protein 5.7 g/dL (6.4-8.2)
[2023-07-31 07:59] VITALS: O2SAT 95
[2023-07-31 08:00] VITALS: RESP 18
[2023-07-31] MEDS: INSULIN ASPART 300 UNIT/3 ML PEN SUBQ (08:26)
[2023-07-31] MEDS: RANOLAZINE 500 MG TAB.ER.12H PO (09:38)
[2023-07-31] MEDS: ISOSORBIDE MONONITRATE 60 MG TAB.ER.24H 120 MG PO (09:38)
[2023-07-31] MEDS: LIOTHYRONINE SODIUM 5 MCG TABLET PO (09:38)
[2023-07-31] MEDS: ENSURE HP 237 ML LIQUID PO (09:38)
[2023-07-31] MEDS: SITAGLIPTIN PHOSPHATE 50 MG TABLET 100 MG PO (09:38)
[2023-07-31] MEDS: METOPROLOL TARTRATE 50 MG TABLET PO (09:38)
[2023-07-31] MEDS: GLIMEPIRIDE 2 MG TABLET 8 MG PO (09:38)
[2023-07-31] MEDS: ASPIRIN 81 MG TAB.CHEW PO (09:38)
[2023-07-31] MEDS: KETOCONAZOLE 15 APPLIC TUBE TOPICAL (09:39)
[2023-07-31] MEDS: DEXAMETHASONE SOD PHOS 10 MG/ML VIAL 6 MG PO (09:41)
--- NOTE | 2023-07-31 09:41 | P.DS_ITS ---
DS: Providers Provider Date of admission: 07/29/23 19:30 Primary care physician: Jose Danielson MD Consults: 07/29/23 16:53 Occupational Therapy Eval and Treat Routine Reason for consultation: Only if needed for Rehab Has provider been notified: No Physical Therapy Eval and Treat Routine Reason for consultation: Eval and Treat Has provider been notified: No DS: Diagnosis Discharge Diagnosis (1) Pneumonia: (2) COVID: Plan H&P: HPI History of Present Illness Chief complaint: BLOOD PRESSURE CHECK Covid Pneumonia Narrative: Patient he called the office, blood pressure readings at home are low, recommended ER evaluation secondary to recent intra-abdominal abscess from ruptured appendix. Status post drainage. In ER workup found patient had no significant abdominal tenderness. White blood cell count was elevated, Vitals: Was hypotensive improved with fluids. COVID testing showed positive COVID. Due to the severity of symptoms and recent illness patient was admitted to observation Review of Systems ROS Status of ROS 10 or more systems reviewed and unremark able except as noted in history and below PFSH PFSH Medical History (Updated 07/29/23 @ 16:53 by Tesha Dowell) Acute appendicitis ?K35.80 - Unspecified acute appendicitis (ICD-10)Thyroid condition ?E07.9 - Disorder of thyroid, unspecified (ICD-10)Diabetes ?E11.9 - Type 2 diabetes mellitus without complications (ICD-10)Hypertension ?I10 - Essential (primary) hypertension (ICD-10) Surgical History (Updated 07/19/23 @ 16:19 by Delaney Lanier) H/O hernia repair ?Z98.890 - Other specified postprocedural states (ICD-10) ?Z87.19 - Personal history of other diseases of the digestive system (ICD-10)H/O heart artery stent ?Z95.5 - Presence of coronary angioplasty implant and graft (ICD-10) Social History Smoking status: Former smoker Highest level of school completed/degree received: some college, no degree Meds Home Medications and Allergies Home Medications Medication Instructions Recorded Confirmed Type albuterol sulfate 90 mcg/actuation 1 inh inhalation Q4H PRN shortness 07/19/23 07/30/23 History aerosol inhaler of breath or wheezing amlodipine 10 mg tablet 10 mg PO DAILY 07/19/23 07/29/23 History aspirin 81 mg capsule 81 mg PO DAILY 07/19/23 07/29/23 History atorvastatin 80 mg tablet 80 mg PO QPM 07/19/23 07/29/23 History jtrkifofsfw-jnoxalzozx-gde-calcium-155herb 1 tab PO BID 07/19/23 07/29/23 History 375 mg-150 mg-125 mg tablet isosorbide mononitrate 60 mg 120 mg PO DAILY 07/19/23 07/29/23 History tablet,extended release 24 hr ketoconazole 2 % topical cream 1 applic topical DAILY 07/19/23 07/29/23 History levothyroxine 50 mcg tablet 50 mcg PO DAILY 07/19/23 07/29/23 History liothyronine 5 mcg tablet 5 mcg PO DAILY 07/19/23 07/29/23 History lisinopril 20 mg tablet 20 mg PO DAILY 07/19/23 07/29/23 History metoprolol tartrate 50 mg tablet 50 mg PO Q12H 07/19/23 07/29/23 History nitroglycerin 0.4 mg sublingual 0.4 mg sublingual Q5M PRN chest 07/19/23 07/29/23 History tablet pain pioglitazone 15 mg tablet 15 mg PO DAILY 07/19/23 07/29/23 History ranolazine 500 mg tablet,extended 500 mg PO Q12H 07/19/23 07/29/23 History release,12 hr tiotropium bromide 2.5 2 inh inhalation Q24H 07/19/23 07/29/23 History mcg/actuation mist for inhalation (Spiriva Respimat) glimepiride 4 mg tablet 8 mg PO DAILY 07/29/23 07/30/23 History Allergies Allergy/AdvReac Type Severity Reaction Status Date / Time ciprofloxacin [From Cipro] Allergy Intermediate Verified 07/20/23 08:12 Penicillins Allergy Intermediate Verified 07/20/23 08:12 Exam Constitutional Vital Signs, click to edit/add: Last Vital Signs Temp 99 F 07/30/23 05:05 Pulse 99 H 07/30/23 05:07 Resp 20 07/30/23 05:07 BP 139/58 07/30/23 05:05 Pulse Ox 90 L 07/30/23 05:07 O2 Del Method Room Air 07/30/23 05:07 O2 Flow Rate 2 07/30/23 05:05 Documenting provider has reviewed patient's vital signs: yes Common normals: no apparent distress Respiratory Common normals: normal respiratory effort and no retractions; not clear to ascultation bilaterally (Diffuse rhonchi consistent with COVID- pneumonia) Cardio Common normals: regular rate and regular rhythm GI Common normals: Normal to inspection, nondistended, normoactive bowel sounds present (minimal tenderness); tender (Minimal diffuse tenderness) Extremity Common normals: normal to inspection and full ROM Results Labs Labs: Short CBC 07/29/23 07/30/23 Range/Units 15:15 05:00 WBC 14.9 H 11.4 H (4.0-11.0) 10^3/uL Hgb 10.4 L 9.4 L (14.0-18.0) g/dL Hct 32.5 L 29.9 L (42.0-54.0) % Plt Count 181 144 L (150-450) 10^3/uL BMP 07/29/23 07/30/23 15:15 05:00 Sodium 137 138 Potassium 4.3 4.0 Chloride 104 108 H Carbon Dioxide 22.8 20.8 L BUN 35.0 H 34.0 H Creatinine 2.89 H 2.20 H Glucose 184 H 126 H Calcium 8.3 L 7.9 L Liver Function 07/29/23 07/30/23 Range/Units 15:15 05:00 Total Bilirubin 0.8 0.5 (0.2-1.0) mg/dL AST 37 49 H (15-37) U/L ALT 45 48 (16-63) U/L Alkaline Phosphatase 68 60 (46-116) U/L Albumin 2.1 L 1.7 L (3.4-5.0) g/dL Assessment and Plan Assessment and Plan (1) Pneumonia: (2) COVID: Plan Sinus tachycardia, leukocytosis, thrombocythemia, mild acute kidney injury, acute hypoxia with O2 saturations less than 86%, deteriorated overnight. 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 Hypertension with coronary artery disease NIDDM Hypothyroidism DS: Summary Hospital Course Hospital Course: Patient had a recent admission at discharge for appendiceal abscess formation. This was washed out and drained. Doing well at home and improving up until the day prior to admission he had increasing cough and shortness of breath. Patient in the ER found to have a right lower lobe pneumonia and consistent findings of COVID-19 pneumonia. Patient was treated with Paxlovid. He did develop hypoxia after the first night. Did not switch him to remdesivir as the hypoxia resolved the following day. Patient with persistent shortness of breath and cough yesterday so was not discharged home due to high risk for deterioration overnight again. Patient did maintain well overnight this past night. He feels back to his normal self. Still some dyspnea with activity but that is going to be expected with his recent illness and now COVID-19. We discharged home in improving condition. Medications see list. Follow-up with me in the office within the next 10 days. Time Spent with Patient Time attestation: Total time spent providing and/or coordinating discharge services: Exam Constitutional Vital Signs, click to edit/add: Last Vital Signs Temp 97.3 F L 07/31/23 05:34 Pulse 87 07/31/23 05:34 Resp 18 07/31/23 08:00 BP 136/69 07/31/23 05:34 Pulse Ox 95 07/31/23 07:59 O2 Del Method Nasal Cannula 07/31/23 05:34 O2 Flow Rate 2 07/31/23 05:34 Documenting provider has reviewed patient's vital signs: yes Common normals: no apparent distress Respiratory Common normals: normal respiratory effort and no retractions; not clear to ascultation bilaterally (Diffuse rhonchi consistent with COVID- pneumonia) Cardio Common normals: regular rate and regular rhythm GI Common normals: Normal to inspection, nondistended, normoactive bowel sounds present (minimal tenderness); tender (Minimal diffuse tenderness) Extremity Common normals: normal to inspection and full ROM DS: Data Data Completed and Pending Labs on day of discharge: Labs from last 24 hours 07/31/23 07/30/23 07/30/23 05:15 20:31 16:12 WBC 7.7 RBC 2.97 L Hgb 9.7 L Hct 29.8 L MCV 100.3 H MCH 32.7 MCHC 32.6 RDW 13.7 Plt Count 168 MPV 10.9 Neut % (Auto) 92.1 H Lymph % (Auto) 5.2 L [place] % (Auto) 1.8 Eos % (Auto) 0.0 L Baso % (Auto) 0.0 L Neut # (Auto) 7.1 H Lymph # (Auto) 0.4 L [place] # (Auto) 0.1 L Eos # (Auto) 0.0 Baso # (Auto) 0.0 Abs Immat Gran (auto) 0.07 H Imm/Tot Granulo (auto) 0.9 H Sodium 137 Potassium 4.6 Chloride 107 Carbon Dioxide 20.1 L Anion Gap 14.5 BUN 33.0 H Creatinine 1.85 H Est GFR ( Amer) 43 L Est GFR (Non-Af Amer) 35 L BUN/Creatinine Ratio 17.8 Glucose 214 H Calcium 8.4 L Total Bilirubin 0.3 AST 42 H ALT 52 Alkaline Phosphatase 62 NT-Pro-B Natriuret Pep 386.0 Total Protein 5.7 L Albumin 1.9 L Globulin 3.8 Albumin/Globulin Ratio 0.5 POC Glucose 305 H 208 H 07/30/23 11:55 WBC RBC Hgb Hct MCV MCH MCHC RDW Plt Count MPV Neut % (Auto) Lymph % (Auto) [place] % (Auto) Eos % (Auto) Baso % (Auto) Neut # (Auto) Lymph # (Auto) [place] # (Auto) Eos # (Auto) Baso # (Auto) Abs Immat Gran (auto) Imm/Tot Granulo (auto) Sodium Potassium Chloride Carbon Dioxide Anion Gap BUN Creatinine Est GFR ( Amer) Est GFR (Non-Af Amer) BUN/Creatinine Ratio Glucose Calcium Total Bilirubin AST ALT Alkaline Phosphatase NT-Pro-B Natriuret Pep Total Protein Albumin Globulin Albumin/Globulin Ratio POC Glucose 248 H Discharge Plan Discharge Disposition: Home, Self-Care Condition: Fair Discharge Medications: New Paxlovid 300 mg (150 mg x 2)-100 mg Tablets,Dose Pack 3 ea PO BID Qty: 30 0RF prednisone 10 mg tablet 30 mg PO DAILY Qty: 23 0RF Rx Instructions: 3/day for 3 days, 2/day for 3 days, 1/day for 3 days, 1/2 /day for 4 days azithromycin 500 mg tablet 500 mg PO DAILY 3 Days Qty: 3 0RF Continued albuterol sulfate 90 mcg/actuation HFA aerosol inhaler 1 inh INHALATION Q4H PRN (Reason: shortness of breath or wheezing) amlodipine 10 mg tablet 10 mg PO DAILY atorvastatin 80 mg tablet 80 mg PO QPM isosorbide mononitrate 60 mg tablet extended release 24 hr 120 mg PO DAILY ketoconazole 2 % cream 1 applic TOPICAL DAILY Patient Comments: JOCK ITCH/RASH levothyroxine 50 mcg tablet 50 mcg PO DAILY liothyronine 5 mcg tablet 5 mcg PO DAILY lisinopril 20 mg tablet 20 mg PO DAILY metoprolol tartrate 50 mg tablet 50 mg PO Q12H nitroglycerin 0.4 mg tablet, sublingual 0.4 mg sublingual Q5M PRN (Reason: chest pain) pioglitazone 15 mg tablet 15 mg PO DAILY ranolazine 500 mg tablet extended release 12 hr 500 mg PO Q12H Spiriva Respimat 2.5 mcg/actuation mist 2 inh INHALATION Q24H hekgbzyjfw-mrzjw-qwx-[id number] 375-150-125 mg tablet 1 tab PO BID aspirin 81 mg capsule 81 mg PO DAILY glimepiride 4 mg tablet 8 mg PO DAILY Patient Instructions: Prednisone (By mouth), Azithromycin (By mouth), COVID-19 (Coronavirus Disease 2019) (DC) Forms: Portal Instructions Follow Up Appointments: Please call and schedule follow up appointment to see Dr. Danielson next week. Discharge Date/Time: 07/31/23 11:41
--- OUTSIDE RECORDS SUMMARY | 2023-08-01 16:43 | XMS_ITS | CCD ---
Author Name Unknown Address [address] [place] [address] Organization [facility] Care Team Providers Care Self Pay Specialist Name Role Phone Tray Alfaro Primary Care Physician Alicia Perea Unavailable MD Tray Alfaro Primary Care Provider MD Hiral Interiano Admit Provider MD Hiral Interiano Attending Provider ALISHA Mckinley [facility] Other Provider Unavailable DO Lizzy [...] Provider MD Kiran Eldridge Jr Other Provider [phone] MD Fátima Ivey Other Provider MD Shaquille Villarreal Other Provider MD Bipin Barlcay Other Provider BRIT, ALICIA Consulting Unavailable BRIT, [...] [place] Consulting Unavailable BRIT, ALICIA Attending Unavailable RBIT, ALICIA Admitting Unavailable HOY ., DR FELIZ [...] Unavailable MD Tray Alfaro Primary Care Provider [phone] MD Ni Olivares Attending Provider Ni OLIVARES [...] Eruption of skin (disorder) [facility] (13 sources) Penicillin; Translations: [penicillin] Drug Allergy Eruption of skin (disorder) [facility] Other (6 sources) Ciprofloxacin Drug Allergy Unknown [facility] [employer] Other (7 sources) Penicillins; Translations: [Penicillins] Allergy to substance 06-14-20 14 [facility] (1 source) Ciprofloxacin Drug Allergy 09-14-20 20 [facility]ository (3 sources) levothyroxine; Translations: [levothyroxine] Drug Allergy Swelling of oral cavity structure (finding) [facility] (3 sources) liothyronine; Translations: [liothyronine] Drug Allergy Swelling of oral cavity structure (finding) [facility] (1 source) No Known Medication Allergies; Translations: [No Known Medication Allergies] Propensity to adverse reactions (disorder) [facility] Repository (1 source) Ciprofloxacin Drug Allergy 08-13-19 [facility] Repository Medications Current Medications Medication Drug Class(es) Dates Sig (Normalized) Sig (Original) acetaminophen 325 mg / HYDROcodone bitartrate 5 mg oral tablet (1 source) Opioid Agonist Start: 10-07-2022 End: 10-09-2022 acetaminophen-hyd rocodone 325 mg-5 mg oral tablet 1 tab(s), Oral, q4hr Pain for 2 day(s), 7 tab(s), Refill(s) 0, [id number], 175, cm, 09/15/22 5:20:00 EDT, Height/Length Dosing, [...] Status: Ordered take 1 capsule by mo [facility] every twenty-four hours Vitamin D3 125 [...] # 2 cap(s), Refills(s) 0, Pharmacy: [id number], 177, cm, 11/18/22 13:54:00 EDT, Height/Length Dosing, [...] activity, # 30 tab(s), Refills(s) 2, [facility] [place] [facility], 174, cm, 08/18/20 12:16:00 EST, Height/Length [...] Date: 04/11/19 Status: Ordered 60 actuat tiotropium 0.94289 mg/actuat inhalation spray (11 sources) Anticholinergic Start: [...] Coronary arteriosclerosis; Translations: [Atherosclerotic heart disease of [place] coronary artery without angina pectoris] Onset: 3 [...] Onset: 10-14-2022 Episodic Other aftercare (1 source) 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; Translations: [LONG-TERM CURRENT USE OF ASPIRIN] Onset: 08-13-2022 Episodic Other aftercare (1 source) Other senior care (current) drug therapy; Translations: [OTH LONG-TERM CURRENT DRUG THERAPY] Onset: 08-13-2022 Episodic Other [...] Range Facility [facility] 07-05-2023 Lab Reports [id number]#1.00TIFF Normal [facility] Lab Reports [id number]#1.00TIFF Normal [facility] Blood Urea Nitrogenon 2023 Urea nitrogen [Mass/Vol] 31 mg/dL High 7-25 [facility] Comment on above: Performed By: #### L YTES, CA, URIC, PTH, BUN, CREAT ####[facility] [id number] [place] [address] [facility] Calciumon 07-02-2023 Calcium [Mass/Vol] 8.8 mg/dL Normal 8.6-10.3 [facility] Comment on above: Performed By: #### L YTES, CA, URIC, PTH, BUN, CREAT ####[facility] [id number] [place] [id number] [facility] Calcium [Mass/volume] in Ser um or PlasmaOrdered By: Ni Olivares on 07-02-2023 Calcium [Mass/Vol] 8.8 mg/dL 8.6-10.3 [facility] Carbon dioxide, total [Moles /volume] in Serum or PlasmaOrdered By: Ni Olivares on 07-02-2023 CO2 [Moles/Vol] 24.0 mmol/L 21.0-31.0 [facility] Chloride [Moles/volume] in S paty or PlasmaOrdered By: Ni Olivares on 07-02-2023 Chloride [Moles/Vol] 107 mmol/L 98-107 [facility] Creatinineon 07-02-2023 Creatinine [Mass/Vol] 2.05 mg/dL High 0.70-1.[address] [facility] Comment on above: Performed By: #### L YTES, CA, URIC, PTH, BUN, CREAT ####[place] [address] [place] [address] [place] GFR/1.73 sq M.predicted MDRD (S/P/Bld) [Vol rate/Area] 32.151 mL/min/{1.73_m2} Normal [facility] Comment on above: Performed By: #### L YTES, CA, URIC, PTH, BUN, CREAT ####[place] [address] [place] [address] [facility] Creatinine [Mass/volume] in Serum or PlasmaOrdered By: Ni Olivares on 07-02-2023 Creatinine [Mass/Vol] 2.05 mg/dL 0.70-1.[address] [facility] Electrolyteson 07-02-2023 Anion gap [Moles/Vol] 12.0 mmol/L Normal 6.0-15.0 [facility] Comment on above: Performed By: #### L YTES, CA, URIC, PTH, BUN, CREAT ####[address] [address] [facility] Chloride [Moles/Vol] 107 mmol/L Normal 98-107 [facility] Comment on above: Performed By: #### L YTES, CA, URIC, PTH, BUN, CREAT ####[place] [address] [place] [address] [place] CO2 [Moles/Vol] 24.0 mmol/L Normal 21.0-31.0 [facility] Comment on above: Performed By: #### L YTES, CA, URIC, PTH, BUN, CREAT ####[address] [address] [facility] Potassium [Moles/Vol] 5.0 mmol/L Normal 3.5-5.[address] [facility] Comment on above: Performed By: #### L YTES, CA, URIC, PTH, BUN, CREAT ####[facility] [place] [address] [facility] Sodium [Moles/Vol] 138 mmol/L Normal 136-145 [facility] Comment on above: Performed By: #### L YTES, CA, URIC, PTH, BUN, CREAT ####[place] [place] [address] [facility] No Panel InformationOrdered By: Ni Olivares on 07-02-2023 Estimated GFR (CKD-EPI) 32.151 mL/Min [facility] Creatinine Clearance (Chem N/A [facility] Parathyrin.intact [Mass/volu me] in Serum or PlasmaOrdered By: Ni Olivares on 07-02-2023 Parathyrin.intact [Mass/Vol] 55.4 pg/mL [facility] Parathyroid Hormone Intacton 07-02-2023 Parathyroid Hormone Intact 55.4 pg/mL Normal [facility] Comment on above: Result Comment: PERF ORMED BY: [facility] [address] [place] [id number] PATHOLOGIST CONSTRUCTION MANAGEMENT ASSISTANT DIANDRA LACY M.D. Performed By: #### L YTES, CA, URIC, PTH, BUN, CREAT ####[place] [place] [address] [facility] Potassium [Moles/volume] in Serum or PlasmaOrdered By: Ni Olivares on 07-02-2023 Potassium [Moles/Vol] 5.0 mmol/L 3.5-5.[address] [facility] Serum or plasma anion gap de terminationOrdered By: Ni Olivares on 07-02-2023 Anion gap [Moles/Vol] 12.0 mmol/L 6.0-15.0 [facility] Sodium [Moles/volume] in Ser um or PlasmaOrdered By: Ni Olivares on 07-02-2023 Sodium [Moles/Vol] 138 mmol/L 136-145 [facility] Urate [Mass/volume] in Serum or PlasmaOrdered By: Ni Olivares on 07-02-2023 Urate [Mass/Vol] 8.2 mg/dL 4.4-7.6 [facility] Urea nitrogen [Mass/volume] in Serum or PlasmaOrdered By: Ni Olivares on 07-02-2023 Urea nitrogen [Mass/Vol] 31 mg/dL 7-25 [facility] Uric Acidon 07-02-2023 Urate [Mass/Vol] 8.2 mg/dL High 4.4-7.6 [facility] Comment on above: Result Comment: PERF ORMED BY: [facility] [address] [place] [id number] PATHOLOGIST CONSTRUCTION MANAGEMENT ASSISTANT DIANDRA LACY M.D. Performed By: #### L YTES, CA, URIC, PTH, BUN, CREAT ####[place] [address] [place] [address] [facility] Lab Reportson 07-01-2023 Lab Reports [id number]#1.00TIFF Normal [facility] PSA Total (Not a Screen)on 0 06-28-2023 PSA Total (Not a Screen) 4.730 ng/mL High 0.000-4.00 0 [facility] Comment on above: Result Comment: Seri al tumor marker results determined by assays using different manufacturers or methods may not be comparable. [facility] change analyst and method: [place] DXI, CHEMILUMINESCENT IMMUNOASSAY. PERFORMED BY: [facility] [address] [place] [address] PATHOLOGIST CONSTRUCTION MANAGEMENT ASSISTANT DIANDRA LACY M.D. Performed By: #### P SATOTAL ####[place] [address] [place] [address] [facility] Prostate specific Ag [Mass/v olume] in Serum or PlasmaOrdered By: Ni Olivares on 06-28-2023 Prostate specific Ag [Mass/Vol] 4.730 ng/mL 0.000-4.00 0 [facility] Comment on above: Serial tumor marker results determined by assays using different manufacturers or methods may not be comparable.[facility] change analyst and method:[place] DXI, CHEMILUMINESCENT IMMUNOASSAY. RAD - Ultrasound Reporton RAD - Ultrasound Report [id number]#1.00TIFF Normal [facility] Lab Reportson 06-16-2023 Lab Reports [id number]#1.00TIFF Normal [facility] Lab Reports [id number]#1.00TIFF Normal [facility] Lab Reports [id number]#1.00TIFF Normal [facility] Screenson 06-16-2023 Screens [id number]#1.00TIFF Normal [facility] US renal BIon 06-16-2023 US renal BI [facility] [place] [address] Ultrasound Report Signed Patient: Victorino Smyth MR#: [id number] : 1940 Acct:[id number] Age/Sex: 82 / M ADM Date: 06/16/23 Loc: Room: Type: [facility] Attending Dr: Ni Olivares MD Ordering Provider: [...] Rehan Fuentes M.D.06/16/2023 4:02 PM Dictation Location: [place] [address] Tech: Sue Chiu Transcribed By: [facility] 06/16/23 1602 Dictated By: Rehan Fuentes DO 06/16/23 1553 Signed By: 06/16/23 1602 [facility] Ambulatory Visit Summaryon 1 08-15-2022 Ambulatory Visit Summary VICTORINO SMYTH :1940 Visit Date:06/14/2023 Ambulatory Visit Instructions Your Diagnosis Kidney stone BPH with urinary obstruction Prostate cancer Tests Performed Urnls Dip Stick Auto w/o Microscopy POC 65344 US Renal -- Results Pending -- Please [...] CARLOS OLIVEROS, BHUPINDER Merritt When: Where: [address] [place] [address]- Medications What How Much When Instructions Unchanged [...] or concerns Unchanged (more content not included)... [facility] Formson 06-14-2023 Forms [id number]#1.00TIFF [facility] Patient Educationon 06-14-20 23 Patient Education [...] ? 8 oz (237 mL) of milk, xkircnn-drubsgbdxkao-pxhga milk, and calcium-fortifiedfruit juice. Calcium-fortified means that [...] Spinach (cooked), rhubarb, beets, sweet potatoes, and Samoan chard. ? Peanuts. ? Potato chips, greek fries, and baked potatoes with skin on. ? Nuts and nut products. ? Chocolate. ? If you regularly take a diuretic medicine, make sure to eat at least 1 or 2 servings of fruits or vegetables that are high in potassium each day. These include: ? Avocado. ? Banana. ? Mercer, prune, carrot, or tomato juice. ? Baked [...] fish oil, or vitamin B6. ? Take jugs-oty-vqnlxyr and prescription medicines only as told by your health care provider. These include supplements. What foods sh (more content not included)... Normal [facility] Urology Office/Clinic Noteon 06-14-2023 Urology Office/Clinic Note [...] with voice recognition artificial intelligence software, specifically 6renyou.com, [employer] and or Get[employer]. Substitutions may have occurred due to the [...] Information CARLOS OLIVEROS, Ni P, URL [address] [place] [address]- Additional Instructions: 1 year Patient Education [...] Hydronephrosis with uretera (more content not included)... [facility] Comment on above: Result Comment: Elec tronically Signed By: Ni OLIVARES MD\.br\Date and Time Signed: 06/14/23 09:55 EST\.br\Electronically Co-Signed By: Dahiana Joseph\.br\Date and Time Co-Signed: 06/14/23 09:48 EST\.br\Electronically Co-Signed By: Dahiana Joseph\.br\Date and Time Co-Signed: 06/14/23 09:50 EST Office Visiton 01-26-2023 Follow-up visit [id number] Ruben Smyth 1940 M Date Provider Department Center 01/26/2023 JENNIFER SMITH FABIOLA Mcneill [facility] Family History Problem Relation Age of Onset No Known Problems Mother No Known Problems Father Family Status - Relation Status Age at Mother Father Level of Service:00480 HI OFFICE/OUTPATIENT ESTABLISHED LOW MDM 20-29 MIN [facility] Consent for Procedure/Surger yon 12-21-2022 Consent for Procedure/Surgery [id number]#1.00CD:127 Normal [facility] IntraOperative Documentson 0 12-21-2022 IntraOperative Documents [id number]#1.00CD:[address] [facility] Consent for Treatmenton 11-26 Consent for Treatment [id number]#1.00CD:[address] [facility] Inpatient Patient Summaryon 12-20-2022 Inpatient Patient Summary [place] [id number] Clinical Summary Person Information Name: VICTORINO SMYTH Age: 82 Years : 1940 Sex: Male PCP: Tray Alfaro MD Marital Status: Race: White Ethnicity: Non- or Language: Romanian Visit Id: Visit Reason: RIGHT KIDNEY STONE Speciality: Acuity: Enc Type: Outpatient Med Service: Surgery Arrival: 12/20/2022 15:00:15 Discharge: Dispo Type: Address: [address] [place] [phone] Provider Notes: Diagnosis: Problems Active Flank pain [...] Follow up: With: Address: When: Ni OLIVARES [address] [place] [address], [address], [place] [address] [facility] (1) Within 6 months Comments: Call for [...] Cystoscopy with Stent Removal Discharge Instructions (Custom) [facility] Main OR Intraoperative Recor don 12-20-2022 Main OR Intraoperative Record IntraOp Document Type FTURO Summary Primary Physician: Ni OLIVARES MD Finalized Date/Time: 12/20/22 16:29:12 Pt. Name: VICTORINO SMYTH Bryan RuedaB./Sex: 1940 Male Med Rec #: [id number] Physician: Ni OLIVARES MD Financial #: [id number] Pt. 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 Name: HAJA VICTORINODANYELLE Dubon/Sex: 1940 Male Med Rec #: [id number] Physician: Ni OLIVARES MD Financial #: [id number] Pt. Type: O Room/Bed: / Admit/Disch: 12/20/22 [...] By: Janay Gonzales RN 12/20/22 15:39 Normal [facility] Operative Reporton Operative Report Patient: SHERYL SMYTH [...] considering a repeat 24-hour urine/metabolic work-up. Normal [facility] Comment on above: Result Comment: Elec tronically Signed By: Ni OLIVARES MD\.br\Date and Time Signed: 12/20/22 16:29 EDT Outpatient Surgery Discharge Instructionon 12-20-2022 Outpatient Surgery Discharge Instruction [place] [id number] Patient Discharge Instructions PERSON INFORMATION Name: VICTORINO [...] up: With: Address: When: Ni OLIVARES [address], [address], [place] [address] [place] [phone] [facility] (1) Within 6 months Comments: Call for [...] to serve you. Thank you for choosing [facility] Normal [facility] Postoperative Documentson Postoperative Documents [id number]#1.00CD:127 Normal [facility] Calculus Analysison 12-09-19 23 Color (Stone) Olsen Invalid Interpretation Code [facility] Comment on above: Performed By: #### 2 [id number] #### [facility] [address] [place] [address] Composition Comment Invalid Interpretation Code [facility] Comment on above: Result Comment: Perc entage (Represents the % composition) Performed By: #### 2 [id number] #### [facility] [address] [place] [address] Disclaimer: Comment Invalid Interpretation Code [facility] Comment on above: Result Comment: This test was developed and its performance characteristics determined by [facility]. It has not been cleared or approved by the Food and Drug Administration. Performed at: [address] [id number] PhD Jarvis Bauman Performed By: #### 2 [id number] #### [facility] [address] [place] [address] Laboratory comment Dangelo (Report) Comment Invalid Interpretation Code [facility] Comment on above: Result Comment: Padmini gutierrez questions regarding Calculi Analysis contact [facility] at: [phone]. Performed By: #### 2 [id number] #### [facility] [address] [place] [address] Please Note: Comment Invalid Interpretation Code [facility] Comment on above: Result Comment: Calc salazar report will follow via computer, mail or cardiac nurse specialist delivery. Performed By: #### 2 [id number] #### [facility] [address] [place] [address] Size (Stone) [Entitic vol] 3x5 Invalid Interpretation Code [facility] Comment on above: Result Comment: Mult iple pieces received. Dimensions of the largest piece reported. Performed By: #### 2 [id number] #### [facility] [address] [place] [address] Specimen source subject Nom Comment Invalid Interpretation Code [facility] Comment on above: Result Comment: Righ t Ureter Performed By: #### 2 [id number] #### [facility] [address] [place] [address] Stone Photo Comment Invalid Interpretation Code [facility] Comment on above: Result Comment: Phot ograph will follow under a separate cover Performed By: #### 2 [id number] #### [facility] [address] [place] [address] Urate (Stone) [Mass fraction] 100 % Invalid Interpretation Code [facility] Comment on above: Performed By: #### 2 [id number] #### [facility] [address] [place] [address] Weight (Stone) 131 mg Invalid Interpretation Code [facility] Comment on above: Performed By: #### 2 [id number] #### [facility] [address] [place] [address] Pre-Certification Formon Pre-Certification Form [id number]#1.00CD:[address] [facility] IntraOperative Documentson 0 12-06-2022 IntraOperative Documents [id number]#1.00CD:[address] [facility] Consent for Anesthesiaon Consent for Anesthesia [id number]#1.00CD:[address] [facility] Discharge Instructionson Discharge Instructions [id number]#1.00CD:[address] [facility] IntraOperative Documentson 0 12-03-2022 IntraOperative Documents [id number]#1.00CD:[address] [facility] IntraOperative Documents [id number]#1.00CD:[address] [facility] Main OR Intraoperative Recor don 12-03-2022 Main OR Intraoperative Record [facility] Preoperative Documentson Preoperative Documents [id number]#1.00CD:[address] [facility] Preoperative Documents [id number]#1.00CD:[address] [facility] Preoperative Documents [id number]#1.00CD:[address] [facility] Progress Note-Physicianon Progress Note-Physician Patient: VICTORINO [...] meets criteria ( To home ). Normal [facility] Comment on above: Result Comment: Elec tronically [...] Problems Acute kidney failure / SNOMED CT 69660601 / Confirmed BPH with urinary obstruction / SNOMED CT 5592457800 / Confirmed Chronic obstructive pulmonary disease (COPD) / SNOMED CT 07645408 / Confirmed Coronary artery disease / SNOMED CT 15077145 / Confirmed Anticoagulated / SNOMED CT 793808746 / Confirmed Erectile dysfunction / SNOMED CT 8174355463 / Confirmed Flank pain / SNOMED CT 505438924 / Confirmed H/O: hypothyroidism / SNOMED CT 167196467 / Confirmed Hydronephrosis / SNOMED CT 40695507 / Confirmed Hydronephrosis with ureteral calculus / SNOMED CT 1563667301 / Confirmed Hyperlipidemia / SNOMED CT 81312904 / Confirmed Hyperplastic colon polyp / SNOMED CT 1049993940 / Confirmed Hypertension / SNOMED CT 1009721675 / Confirmed Kidney stone / SNOMED CT 315726978 / Confirmed Prostate cancer / SNOMED CT 8796863020 / Confirmed Myocardial infarct / SNOMED CT 52454532 / Confirmed BPH associated with nocturia / SNOMED CT 8789477955 / Confirmed Occult blood in stools / SNOMED CT 21959838 / Confirmed Postprandial diarrhea / SNOMED CT 84617341 / Confirmed Elevated PSA / SNOMED CT 4576300576 / Confirmed Urinary retention / SNOMED CT 336298746 / Confirmed Rheumatoid arthritis / SNOMED CT 243288175 / Confirmed DM (diabetes mellitus), type 2 / SNOMED CT 117230631 / Confirmed Ureteral stone / SNOMED CT 24576672 / Confirmed Histories Procedure history: ESWL of kidney (85509646) on 10/07/2022 at 82 Years. Transurethral resection of prostate (672447963) on 08/01/2019 at 79 Years. Biopsy of prostate (161631557) on 07/04/2019 at 78 Years. cystoscopy, bilateral, ureteroscopy, laser lithotripsy on 06/27/2019 at 78 Years. TRIGGER FINGER RELEASE. Neuroplasty and/or transposition; median nerve at carpal tunnel (96551). Percutaneous transluminal coronary angioplasty; single major coronary artery or branch (79080). Patient has a coronary artery stent (Peri2) [...] adequate air exchange. Cardiovascular: Regular rhythm. Plan [place] [employer] Anesthesiologists (ASA) physical status classification: Class III. Anesthetic Preoperative Plan: Anesthesia General. Normal [facility] Comment on above: Result Comment: Elec tronically Signed By: Reji Hidalgo DO, Ty Khanna\.br\Date and Time Signed: 12/03/22 08:21 EDT Capillary Glucose POCon Glucose [Mass/Vol] 82 mg/dL Normal 55-99 [facility] Comment on above: Result Comment: Jackelin quach RN/ Performed By: #### 2 [id number] #### [facility] [address] [place] [address] Consent for Procedure/Surger yon 12-02-2022 Consent for Procedure/Surgery [id number]#1.00CD:127 Normal [facility] Consent for Treatmenton Consent for Treatment [id number]#1.00CD:127 Normal [facility] Discharge Instructionson Discharge Instructions VICTORINO SMYTH :1940 [...] When: Comments: Call for followup appointment Where: [facility] [address] [address]- Business (1) Medications What How Much When Instructions Next Dose New doxycycline (doxycycline hyclate 100 mg Cap) 1 Capsules By Mouth 2 times a day Duration: 5 Days Pickup at [facility] #[id number] Unchanged albuterol (Ventolin Diskus) 2 Puffs Inhalation [...] needed for Itching Pharmacy Information [id number]: [address] [place], [place] [id number] [phone] Allergies ciprofloxacin (Rash) levothyroxine (Mouth swelling) liothyronine (Mouth (more content not included)... Normal [facility] Comment on above: Result Comment: Elec tronically Signed By: Shae BRITO, Jazmin Eli\.ruba\Date and Time Signed: 12/02/22 12:25 EDT H&P Updateon 12-02-2022 H&P Update [id number]:127 Normal [facility] Inpatient Patient Summaryon 12-02-2022 Inpatient Patient Summary [address] [address] [facility] Clinical Discharge Instructions PERSON INFORMATION Name: VICTORINO SMYTH PHYSICIANS Admitting Physician: Ni OLIVARES MD Attending Physician: Ni OLIVARES MD PCP: Tray Alfaro MD Discharge Diagnosis: Comment: PATIENT EDUCATION INFORMATION Instructions: Uaws-Zimv-ph Utereroscopy,Lithotripsy, Stone Extraction, Stent Placement (Custom) Medication Leaflets: Follow up: With: Address: When: Ni OLIVARES [address] [place] [address], [address], [place] [id number] [facility] (1) Comments: Call for followup appointment MEDICATION LIST New Medications [id number], [address], [place] [id number], [phone] doxycycline (doxycycline hyclate 100 mg Cap) 1 [...] apply to chin, and forhead Comment: Isamar [facility] Main OR PACU I Recordon Main OR PACU I Record PACU Phase I Docum ent Type FT Summary Primary Physician: Ni OLIVARES MD Finalized Date/Time: 12/02/22 12:58:10 Pt. Name: VICTORINO SMYTH Bryan Chatman./Sex: 1940 Male Med Rec #: [id number] Physician: Ni OLIVARES MD Financial #: [id number] Pt. Type: A Room/Bed: [facility] Admit/Disch: 12/02/22 09:31:57 - Institution: Case [...] By: Piedad Blanco RN 12/02/22 12:58 Normal [facility] Main OR PACU II Recordon Main OR PACU II Record PACU Phase II Doc ument Type FT Summary Primary Physician: Ni OLIVARES MD Finalized Date/Time: 12/02/22 13:45:57 Pt. Name: SMYTHVICTORINO./Sex: 1940 Male Med Rec #: [id number] Physician: Ni OLIVARES MD Financial #: [id number] Pt. Type: A Room/Bed: [facility] Admit/Disch: 12/02/22 09:31:57 - Institution: Case [...] By: Jazmin Kaufman RN 12/02/22 13:45 Normal [facility] Main OR Preoperative Recordo n 12-02-2022 Main OR Preoperative Record PreOp Document Type FT Summary Primary Physician: Ni OLIVARES MD Finalized Date/Time: 12/02/22 11:00:33 Pt. Name: SMYTHVICTORINO./Sex: 1940 Male Med Rec #: [id number] Physician: Ni OLIVARES MD Financial #: [id number] Pt. Type: Room/Bed: [place] [address] Admit/Disch: 12/02/22 09:31:57 - Institution: Case Times [...] By: Soraya Borrego RN 12/02/22 11:00 Normal [facility] Monitor Recordon 12-02-2022 Monitor Record [id number]:127 Normal [facility] Monitor Record [id number]:127 Normal [facility] Operative Reporton 3 Operative Report Patient: SHERYL [...] jelly placed per urethra. A well-lubricated 22 [place] Citizen is urethroscope with 30 degree lens then [...] backloaded over the wire and a 4.7 [place] Citizen Bard inlay double-J stent is passed into [...] ml. Complications: None. Anesthesia type: General. Normal [facility] Comment on above: Result Comment: Elec tronically Signed By: Ni OLIVARES MD\.br\Date and Time Signed: 12/02/22 11:51 EDT Outpatient Surgery Discharge Instructionon 12-02-2022 Outpatient Surgery Discharge Instruction [place] [id number] Patient Discharge Instructions PERSON INFORMATION Name: VICTORINO [...] Follow up: With: Address: When: Ni OLIVARES [address] [place] [address], [address], [place] [id number] [facility] (1) Comments: Call for followup appointment Pharmacy Information: You may receive a survey from [employer] asking you to rate your care experience. Your feedback is important and will help us understand what we do well and how we can improve the quality of care we provide to you, your loved ones and our community. It?s an honor to serve you. Thank you for choosing [facility] HERE ARE THE MEDICATION CHANGES THAT OCCURRED DURING YOUR HOSPITAL STAY New Medications [id number], [address], [place] [id number], [phone] doxycycline (doxycycline hyclate 100 mg Cap) 1 [...] forhead PATIENT EDUCATION INFORMATION Instructions: [facility] [place], [place] Dr. Ni Omalley Post-operative Instructions for [...] swelling, kidn (more content not included)... Normal [facility] Patient Education - Texton 0 12-02-2022 Patient [...] MDI an (more content not included)... Normal [facility] XR Abdomen 1 Viewon 12-03-19 23 XR [...] in mGy = na DAP = na [facility] Consultation Noteon 11-29-19 Consultation Note [id number]:[address] [facility] Outside Recordson 11-24-2022 Outside Records [id number]#[id number]:[address] [facility] C Urineon 11-20-2022 Bacteria identified Cx [...] Locations R1: This test was performed at: [facility], [address] [place] [address], [address] , [place], [facility] Comment on above: Performed By: #### 1 [id number], [id number] ####[facility] [address] [place] [address] Albuminon 11-18-2022 Albumin [Mass/Vol] 4.0 g/dL Normal 3.3-5.0 [facility] Comment on above: Performed By: #### 2 261231, 2065089, 0313257, 98671297, 229161032, 6483133, 6834506, 4800891, 2652155 ####[facility] [address] [place] [address] Auto Diffon 11-18-2022 Basophils/100 WBC (Bld) 0.2 % Normal 0.0-2.0 [facility] Comment on above: Order Comment: Order Added by Discern Expert. Performed By: #### 2 [id number] #### [facility] [address] [place] [address] Basophils/Leukocytes Auto (Bld) [Pure # fraction] 0.0 E9/L Normal 0.0-0.2 [facility] Comment on above: Order Comment: Order Added by Discern Expert. Performed By: #### 2 [id number] #### [facility] [address] [place] [address] Eosinophils/100 WBC (Bld) 0.1 % Normal 0.0-8.0 [facility] Comment on above: Order Comment: Order Added by Discern Expert. Performed By: #### 2 [id number] #### [facility] [address] [place] [address] Eosinophils/Leukocytes Auto (Bld) [Pure # fraction] 0.0 E9/L Normal 0.0-0.5 [facility] Comment on above: Order Comment: Order Added by Discern Expert. Performed By: #### 2 [id number] #### [facility] [address] [place] [address] Lymphocytes/100 WBC (Bld) 8.6 % Low 14.0-50.0 [facility] Comment on above: Order Comment: Order Added by Discern Expert. Performed By: #### 2 [id number] #### [facility] [address] [place] [address] Lymphocytes/Leukocytes Auto (Bld) [Pure # fraction] 0.9 E9/L Low 1.0-4.0 [facility] Comment on above: Order Comment: Order Added by Discern Expert. Performed By: #### 2 [id number] #### [facility] [address] [place] [address] Monocytes/100 WBC (Bld) 7.1 % Normal 4.0-14.0 [facility] Comment on above: Order Comment: Order Added by Discern Expert. Performed By: #### 2 [id number] #### [facility] [address] [place] [address] Monocytes/Leukocytes Auto (Bld) [Pure # fraction] 0.7 E9/L Normal 0.2-1.0 [facility] Comment on above: Order Comment: Order Added by Discern Expert. Performed By: #### 2 [id number] #### [facility] [address] [place] [address] Neutrophils/100 WBC (Bld) 84.0 % High 36.0-75.0 [facility] Comment on above: Order Comment: Order Added by Discern Expert. Performed By: #### 2 [id number] #### [facility] [address] [place] [address] Neutrophils/Leukocytes Auto (Bld) [Pure # fraction] 8.7 E9/L High 2.0-7.5 [facility] Comment on above: Order Comment: Order Added by Discern Expert. Performed By: #### 2 [id number] #### [facility] [address] [place] [address] BMP 11-18-2022 Anion gap [Moles/Vol] 12 mmol/L Normal 6-16 [facility] Comment on above: Performed By: #### 2 [id number] #### [facility] [address] [place] [address] Calcium [Mass/Vol] 9.3 mg/dL Normal 8.9-11.1 [facility] Comment on above: Performed By: #### 2 [id number] #### [facility] [address] [place] [address] Chloride [Moles/Vol] 109 mmol/L Normal 101-111 [facility] Comment on above: Performed By: #### 2 [id number] #### [facility] [address] [place] [address] CO2 [Moles/Vol] 24 mmol/L Normal 21-31 [facility] Comment on above: Performed By: #### 2 [id number] #### [facility] [address] [place] [address] Creatinine [Mass/Vol] 2.5 mg/dL High 0.5-1.3 [facility] Comment on above: Performed By: #### 2 [id number] #### [facility] [address] [place] [address] Glucose [Mass/Vol] 130 mg/dL Normal 55-199 [facility] Comment on above: Result Comment: If t his glucose result represents a fasting glucose, interpretation should refer to the following reference range: 55-99 mg/dL Performed By: #### 2 [id number] #### [facility] [address] [place] [address] Potassium [Moles/Vol] 4.8 mmol/L Normal 3.5-5.3 [facility] Comment on above: Performed By: #### 2 [id number] #### [facility] [address] [place] [address] Sodium [Moles/Vol] 140 mmol/L Normal 135-145 [facility] Comment on above: Performed By: #### 2 [id number] #### [facility] [address] [place] [address] Urea nitrogen [Mass/Vol] 38 mg/dL High 5-21 [facility] Comment on above: Performed By: #### 2 26065514 #### [facility] [address] [place] [address] Urea nitrogen/Creatinine [Mass ratio] 15 No Units Normal 10-20 [facility] Comment on above: Performed By: #### 2 [id number] #### [facility] [address] [place] [address] CBC w/ Auto Diffon 05-25-202 3 Erythrocyte distribution width (RBC) [Ratio] 13.5 % Normal 10.9-14.2 [facility] Comment on above: Performed By: #### 2 [id number] #### [facility] [address] [place] [address] Hematocrit (Bld) [Volume fraction] 34.9 % Low 37.7-49.0 [facility] Comment on above: Performed By: #### 2 54054507 #### [facility] [address] [place] [address] Hemoglobin (Bld) [Mass/Vol] 11.7 g/dL Low 13.5-17.5 [facility] Comment on above: Performed By: #### 2 45419006 #### [facility] [address] [place] [address] MCH (RBC) [Entitic mass] 32.1 pg Normal 27.0-34.0 [facility] Comment on above: Performed By: #### 2 [id number] #### [facility] [address] [place] [address] MCHC (RBC) [Mass/Vol] 33.6 g/dL Normal 31.4-36.0 [facility] Comment on above: Performed By: #### 2 [id number] #### [facility] [address] [place] [address] MCV (RBC) [Entitic vol] 95.4 fL Normal 80.0-100.0 [facility] Comment on above: Performed By: #### 2 16750840 #### [facility] [address] [place] [address] Platelet mean volume (Bld) [Entitic vol] 8.7 fL Normal 6.4-10.8 [facility] Comment on above: Performed By: #### 2 [id number] #### [facility] [address] [place] [address] Platelets (Bld) [#/Vol] 214.0 E9/L Normal 150.0-500. 0 [facility] Comment on above: Performed By: #### 2 [id number] #### [facility] [address] [place] [address] RBC (Bld) [#/Vol] 3.7 E12/L Low 4.3-5.9 [facility] Comment on above: Performed By: #### 2 [id number] #### [facility] [address] [place] [address] WBC corrected for nucl RBC Auto (Bld) [#/Vol] 10.4 E9/L Normal 4.0-11.0 [facility] Comment on above: Performed By: #### 2 [id number] #### [facility] [address] [place] [address] Consent for Treatmenton 10-26 Consent for Treatment [id number]#[id number]:127 Normal [facility] Consent for Treatment [id number]#[id number]:127 Normal [facility] Ferritinon 11-18-2022 Ferritin [Mass/Vol] 192 ng/mL Normal 24-336 [facility] Comment on above: Result Comment: NORM ALS MEN <30 YRS 16-132 ng/mL MEN >30 YRS 8-338 ng/mL WOMEN (PREMEN) 6-104 ng/mL WOMEN (POSTMEN) 12-210 ng/mL Performed By: #### 2 197855, 4330482, 9290829, 52785614, 752954850, 5512710, 2566001, 8045982, 5630645 ####[facility] [address] [place] [address] Folateon 11-18-2022 Folate [Mass/Vol] ng/mL Normal >=6.7 [facility] Comment on above: Performed By: #### 2 143604, 3810046, 1423972, 02520509, 307466293, 7058022, 8597948, 7484195, 2340315 ####[facility] [address] [place] [address] Ironon 11-18-2022 Iron [Mass/Vol] 102 microgram/dL Normal 35-153 [facility] Comment on above: Performed By: #### 2 737895, 2218672, 4685877, 67655411, 255260528, 9616427, 0427691, 6989900, 7047399 ####[facility] [address] [place] [address] PT & PTTon 11-18-2022 aPTT Coag (PPP) [Time] 27.1 second(s) Normal 25.1-36.5 [facility] Comment on above: Result Comment: Para meter [...] the same coagulation reagent and instrumentation as [facility]. Currently there are no coagulation studies available worldwide for children to 14 days, and no normal ranges. Heparin therapeutic range (represented by Anti-Factor Xa activity of 0.2 - 0.4 U/mL) corresponds to PTT of 56.6 - 109.0 sec. Performed By: #### 2 [id number] #### [facility] [address] [place] [address] INR Coag (PPP) [Relative time] 1.1 {INR} Invalid Interpretation Code [facility] Comment on above: Result Comment: INR results are specifically intended to assess patients stabilized on long-term Anticoagulation therapy suggested INR?s ?Less Intensive Anticoagulation? 2.0 ? 3.0 Conventional Range 3.0 ? 4.5 Performed By: #### 2 [id number] #### [facility] [address] [place] [address] PT Coag (PPP) [Time] 11.9 second(s) Normal 9.4-12.5 [facility] Comment on above: Result Comment: 15 d [...] the same coagulation reagent and instrumentation as [facility]. Currently there are no coagulation studies available worldwide for children to 14 days, and no normal ranges. Performed By: #### 2 [id number] #### [facility] [address] [place] [address] Phosphoruson 11-18-2022 Phosphate [Mass/Vol] 4.4 mg/dL Normal 1.9-4.6 [facility] Comment on above: Performed By: #### 2 258123, 1763127, 3470521, 51200049, 354181848, 3174004, 8924302, 1695016, 6691960 ####[facility] [address] [place] [address] Physician Orderon 11-18-2022 Physician Order [id number]:127 Normal [facility] TIBC Calculatedon 11-18-2022 Iron binding capacity [Mass/Vol] 292 microgram/dL Normal 250-400 [facility] Comment on above: Performed By: #### 2 178992, 0480390, 3176673, 12132659, 857278038, 2112487, 9799611, 1479946, 3307134 ####[facility] [address] [place] [address] Transferrin [Mass/Vol] 208 mg/dL Normal 200-370 [facility] Comment on above: Performed By: #### 2 260046, 3754965, 5032155, 38720043, 111951613, 4382533, 9992030, 6617918, 9312600 ####[facility] [address] [place] [address] U Protein/Creat Ratioon 10-26 Albumin Elph (U) [Mass fraction] 25.2 mg/dL Invalid Interpretation Code [facility] Comment on above: Result Comment: The reference range and other method performance specifications have not been established for this test; results should be integrated into the clinical context for interpretation. Performed By: #### 1 [id number] #### [facility] [address] [place] [address] Creatinine (U) [Mass/Vol] 80.6 mg/dL Invalid Interpretation Code [facility] Comment on above: Result Comment: The reference range and other method performance specifications have not been established for this test; results should be integrated into the clinical context for interpretation. Performed By: #### 1 [id number] #### [facility] [address] [place] [address] U Prot/Creat Ratio 312.70 mg/gm Cr High .00-200.00 [facility] Comment on above: Performed By: #### 1 [id number] #### [facility] [address] [place] [address] UA With Cult Reflexon 2022 Bilirubin Ql (U) Negative Normal Negative [facility] Comment on above: Performed By: #### 1 1863640, 2072276 #### [facility] [address] [place] [address] Clarity (U) CLEAR Normal Clear [facility] Comment on above: Performed By: #### 1 2748266, 6458725 #### [facility] [address] [place] [address] Color (U) YELLOW Normal Yellow [facility] Comment on above: Performed By: #### 1 3860730, 2306951 #### [facility] [address] [place] [address] Epithelial cells.squamous LM.HPF (Urine sed) [#/Area] 0-2 Normal 0-2 [facility] Comment on above: Performed By: #### 1 6086620, 6331673 #### [facility] [address] [place] [address] Glucose Test strip (U) [Mass/Vol] Negative Normal Negative [facility] Comment on above: Performed By: #### 1 5478621, 8021997 #### [facility] [address] [place] [address] Hemoglobin Ql (U) 3+ Abnormal Negative [facility] Comment on above: Performed By: #### 1 6325310, 0887474 #### [facility] [address] [place] [address] Ketones (U) [Mass/Vol] Negative Normal Negative [facility] Comment on above: Performed By: #### 1 1942905, 9146648 #### [facility] [address] [place] [address] [place].plasma/[place] .RBC (Bld) [Mass ratio] >30 Abnormal 0-3 [facility] Comment on above: Performed By: #### 1 0511118, 8564934 #### [facility] [address] [place] [address] Nitrite Ql (U) Negative Normal Negative [facility] Comment on above: Performed By: #### 1 6268866, 9662575 #### [facility] [address] [place] [address] pH (U) 6.0 [pH] Invalid Interpretation Code 5.0-9.0 [facility] Comment on above: Performed By: #### 1 2160365, 4116940 #### [facility] [address] [place] [address] Protein (U) [Mass/Vol] TRACE Abnormal Negative [facility] Comment on above: Performed By: #### 1 2489927, 4133528 #### [facility] [address] [place] [address] Specific gravity (U) [Rel density] 1.020 Invalid Interpretation Code 1.005-1.03 0 [facility] Comment on above: Performed By: #### 1 6254497, 4998180 #### [facility] [address] [place] [address] Type of Urine collection method Clean Catch Normal [facility] Comment on above: Performed By: #### 1 7538352, 2770909 #### [facility] [address] [place] [address] Urobilinogen Qn (U) 0.2 {Wil'U}/dL Normal 0.0-1.0 [facility] Comment on above: Performed By: #### 1 8389662, 7391960 #### [facility] [address] [place] [address] WBC Auto Ql (U) 1+ Abnormal Negative [facility] Comment on above: Performed By: #### 1 8971786, 7236194 #### [facility] [address] [place] [address] WBC LM.HPF (Urine sed) [#/Area] 0-5 Normal 0-5 [facility] Comment on above: Performed By: #### 1 1628350, 0136738 #### [facility] [address] [place] [address] Uric Acidon 11-18-2022 Urate [Mass/Vol] 7.0 mg/dL Normal 2.2-7.4 [facility] Comment on above: Performed By: #### 2 584744, 9169909, 6540951, 94607900, 954022777, 5984056, 9573153, 1701053, 1726540 ####[facility] [address] [place] [address] Vit B12on 11-18-2022 Cobalamin (Vitamin B12) [Mass/Vol] 495 pg/mL Normal 50-1500 [facility] Comment on above: Performed By: #### 2 087212, 4976080, 8893150, 90480036, 232106146, 2376618, 7822141, 8243064, 2840583 ####[facility] [address] [place] [address] Vitamin D 25 Hydroxyon 11-18 25-hydroxyvitamin D3 [Mass/Vol] 64.8 ng/mL Normal 30.0-100.0 [facility] Comment on above: Result Comment: Vit grewal D deficiency has been defined as a level of serum 25-OH vitamin D less than 20 ng/mL (1,2) by the [place] of [employer] and an Endocrine Society practice guideline. The Endocrine Society further defined vitamin D insufficiency as a level between 21 and 29 ng/mL (2). 1. IOM ([place] of [employer]). 2010. Dietary reference intakes for calcium and D. [place]: The National Academies Press. 2. Kortney MF, Candie NC, Ekaterina WEINBERG, et al. Evaluation, treatment, and prevention of vitamin D deficiency: an Endocrine Society clinical practice guideline. JCEM. 2010; 96 (7):1911-30. Performed By: #### 2 709763, 0080913, 6211410, 31685074, 861800279, 8034033, 2872099, 5981035, 1779937 ####[facility] [address] [place] [address] eGFRon 11-18-2022 GFR/1.73 sq M.predicted among non-blacks MDRD (S/P/Bld) [Vol rate/Area] 25 mL/min/1.73 m2 Low >=59 [facility] Comment on above: Order Comment: Order added by Discern Expert. Result Comment: Credentialing Coordinator christa kidney disease could be indicated at eGFR's of less than 60 mL/min/1.73m2. Kidney failure is indicated at less than 15 mL/min/1.73m2. Performed By: #### 2 19770190 #### [facility] [address] [place] [address] Office Visiton 11-17-2022 Follow-up visit [id number] Ruben Smyth 1940 M Date Provider Department Center 11/17/2022 IRIS BLACKMAN [facility] Family History Problem Relation Age of Onset No Known Problems Mother No Known Problems Father Family Status - Relation Status Age at Mother Father Level of Service:79156 HI OFFICE/OUTPATIENT ESTABLISHED MOD MDM 30-39 MIN Normal [facility] Lab Reportson 11-12-2022 Lab Reports [id number]:127 Normal [facility] Lab Reports [id number]:127 Normal [facility] Lab Reports [id number]:127 Normal [facility] Lab Reports [id number]#[id number]:127 Normal [facility] PSA, FREE AND TOTAL RATIOon 11-09-2022 % Free PSA 11.3 % Normal [facility] Comment on above: Result Comment: The [...] men. Performed By: #### P SAFREE #### [facility] [address] [place] [address] Dr. Alicia Patel Prostate specific Ag [Mass/Vol] 4.6 ng/mL Critically high 0.0-4.0 [facility] Comment on above: Result Comment: Dwight CARRILLOIA methodology. . According to the [place] [employer], Serum PSA should decrease and [...] disease. Performed By: #### P SAFREE #### [facility] [address] [place] [address] Dr. Alicia Patel PSA, Free 0.52 ng/mL Normal N/A [facility] Comment on above: Result Comment: Dwight JUAREZ methodology. Performed By: #### P SAFREE #### [facility] [address] [place] [address] Dr. Alicia Patel INSULINon 11-08-2022 Insulin 18.5 uIU/mL Normal 2.6-24.9 [facility] Comment on above: Performed By: #### T SH, LIPID, T4, FT3, CMP #### [facility] [address] [place] [address] Dr. Alicia Patel CBC AUTO DIFFon 11-06-2022 BASO # 0.0 103/ul Normal 0.0-0.1 [facility] Comment on above: Performed By: #### C BC #### [facility] [address] [place] [address] Dr. Alicia Patel Basophils/100 WBC (Bld) 0.4 % Normal 0.2-2.0 [facility] Comment on above: Performed By: #### C BC #### [facility] [address] [place] [address] Dr. Alicia Patel EO # 0.2 103/ul Normal 0.0-0.7 [facility] Comment on above: Performed By: #### C BC #### [facility] [address] [place] [address] Dr. Alicia Patel Eosinophils/100 WBC (Bld) 4.6 % Normal 0.9-7.0 [facility] Comment on above: Performed By: #### C BC #### [facility] [address] [place] [address] Dr. Alicia Patel Erythrocyte distribution width (RBC) [Ratio] 13.2 % Normal 11.0-15.0 [facility] Comment on above: Performed By: #### C BC #### [facility] [address] [place] [address] Dr. Alicia Patel Hematocrit (Bld) [Volume fraction] 34.6 % Critically low 42.0-54.0 [facility] Comment on above: Performed By: #### C BC #### [facility] [address] [place] [address] Dr. Alicia Patel Hemoglobin (Bld) [Mass/Vol] 11.4 g/dL Critically low 14.0-18.0 [facility] Comment on above: Performed By: #### C BC #### [facility] [address] [place] [address] Dr. Alicia Patel IG # 0.03 10e3/ul Normal 0.00-0.03 [facility] Comment on above: Performed By: #### C BC #### [facility] [address] [place] [address] Dr. Alicia Patel IG % 0.6 % Critically high 0.0-0.5 [facility] Comment on above: Performed By: #### C BC #### [facility] [address] [place] [address] Dr. Alicia Patel LYMPH # 0.9 103/ul Critically low 1.2-3.8 [facility] Comment on above: Performed By: #### C BC #### [facility] [address] [place] [address] Dr. Alicia Patel Lymphocytes/100 WBC (Bld) 16.3 % Critically low 20.5-60.0 [facility] Comment on above: Performed By: #### C BC #### [facility] [address] [place] [address] Dr. Alicia Patel MANUAL DIFF REQ NO Normal [facility] Comment on above: Performed By: #### C BC #### [facility] [address] [place] [address] Dr. Alicia Patel MCH (RBC) [Entitic mass] 32.9 pg Normal 25.9-34.0 [facility] Comment on above: Performed By: #### C BC #### [facility] [address] [place] [address] Dr. Alicia Patel MCHC (RBC) [Mass/Vol] 32.9 g/dL Normal 29.9-35.2 [facility] Comment on above: Performed By: #### C BC #### [facility] [address] [place] [address] Dr. Alicia Patel MCV (RBC) [Entitic vol] 99.7 fL Critically high 80.0-94.0 [facility] Comment on above: Performed By: #### C BC #### [facility] [address] [place] [address] Dr. Alicia Patel MONO # 0.6 103/ul Normal 0.3-0.8 [facility] Comment on above: Performed By: #### C BC #### [facility] [address] [place] [address] Dr. Alicia Patel Monocytes/100 WBC (Bld) 12.0 % Normal 1.7-12.0 [facility] Comment on above: Performed By: #### C BC #### [facility] [address] [place] [address] Dr. Alicia Patel NEUT # 3.5 103/ul Normal 1.4-6.5 [facility] Comment on above: Performed By: #### C BC #### [facility] [address] [place] [address] Dr. Alicia Patel Neutrophils/100 WBC (Bld) 66.1 % Normal 43.0-75.0 [facility] Comment on above: Performed By: #### C BC #### [facility] [address] [place] [address] Dr. Alicia Patel Platelet mean volume (Bld) [Entitic vol] 10.1 fL Normal 9.5-13.5 [facility] Comment on above: Performed By: #### C BC #### [facility] [address] [place] [address] Dr. Alicia Patel PLT 168 103/ul Normal 150-450 [facility] Comment on above: Performed By: #### C BC #### [facility] [address] [address] [address] Alicia Patel RBC 3.47 106/ul Critically low 4.70-6.10 [facility] Comment on above: Performed By: #### C BC #### [facility] [address] [address] [address] Alicia Patel WBC 5.2 103/ul Normal 4.0-11.0 [facility] Comment on above: Performed By: #### C BC #### [facility] [address] [address] [address] Alicia Patel FREE T3on 11-06-2022 FREE T3 2.78 pg/mlL Normal 2.18-3.98 [facility] Comment on above: Performed By: #### U RTPCR #### [facility] [address] [place] [address] Dr. Alicia Patel GLYCOHEMOGLOBIN A1Con 2022 ADA RECOMMENDATION SEE BELOW Normal [facility] Comment on above: Result Comment: ADA RECOMMENDED LIMIT 4.0 - 6.0 ADA THERAPEUTIC TARGET < 7.0 ACTION SUGGESTED > 7.0 Performed By: #### T SH, LIPID, T4, FT3, CMP #### [facility] [address] [address] [address] Alicia Patel Glucose [Mass/Vol] 120 mg/dL Normal [facility] Comment on above: Performed By: #### T SH, LIPID, T4, FT3, CMP #### [facility] [address] [place] [address] Dr. Alicia Patel HbA1c (Bld) [Mass fraction] 5.8 % Normal 4.5-6.2 [facility] Comment on above: Performed By: #### T SH, LIPID, T4, FT3, CMP #### [facility] [address] [place] [address] Dr. Alicia Patel LIPID PROFILEon 11-06-2022 CHOL-HDL RATIO NORM SEE BELOW Normal [facility] Comment on above: Result Comment: 3.3 - 4.4 LOW RISK 4.4 - 7.1 AVERAGE RISK 7.1 - 11.0 MODERATE RISK >11.0 HIGH RISK Performed By: #### U RTPCR #### [facility] [address] [address] [address] Alicia Patel Cholesterol [Mass/Vol] 107 mg/dL Normal <=200 [facility] Comment on above: Performed By: #### U RTPCR #### [facility] [address] [address] [address] Alicia Patel Cholesterol in HDL [Mass/Vol] 34 mg/dL Critically low 40-60 [facility] Comment on above: Performed By: #### U RTPCR #### [facility] [address] [place] [address] Dr. Alicia Patel Cholesterol in LDL [Mass/Vol] 58.8 mg/dL Normal [facility] Comment on above: Performed By: #### U RTPCR #### [facility] [address] [place] [address] Dr. Alicia Patel Cholesterol.total/Chol esterol in HDL [Mass ratio] 3.1 {ratio} Normal [facility] Comment on above: Performed By: #### U RTPCR #### [facility] [address] [place] [address] Dr. Alicia Patel HDL NORMAL > or = 60 mg/dl - LO W CARDIOVASCULAR RISK <40 mg/dl - HIGH CARDIOVASCULAR RISK Normal [facility] Comment on above: Performed By: #### U RTPCR #### [facility] [address] [address] [address] Alicia Patel LDL CALC NORMAL SEE BELOW Normal [facility] Comment on above: Result Comment: <100 mg/dl OPTIMAL 100 - 129 mg/dl NEAR OR ABOVE OPTIMAL 130 - 159 mg/dl BORDERLINE HIGH 160 - 189 mg/dl HIGH >190 mg/dl VERY HIGH Performed By: #### U RTPCR #### [facility] [address] [place] [address] Dr. Alicia Patel Triglyceride [Mass/Vol] 71 mg/dL Normal <=150 [facility] Comment on above: Performed By: #### U RTPCR #### [facility] [address] [place] [address] Dr. Alicia Patel VLDL CALC 14.2 mg/dL Normal [facility] Comment on above: Performed By: #### U RTPCR #### [facility] [address] [place] [address] Dr. Alicia Patel PROF 14(COMP METB)on 023 Albumin [Mass/Vol] 3.4 g/dL Normal 3.4-5.0 [facility] Comment on above: Performed By: #### T SH, LIPID, T4, FT3, CMP #### [facility] [address] [place] [address] Dr. Alicia Patel Albumin/Globulin [Mass ratio] 0.9 {ratio} Normal [facility] Comment on above: Performed By: #### T SH, LIPID, T4, FT3, CMP #### [facility] [address] [place] [address] Dr. Alicia Patel ALP [Catalytic activity/Vol] 75 U/L Normal 46-116 [facility] Comment on above: Performed By: #### T SH, LIPID, T4, FT3, CMP #### [facility] [address] [place] [address] Dr. Alicia Patel ALT [Catalytic activity/Vol] 31 U/L Normal 16-63 [facility] Comment on above: Performed By: #### T SH, LIPID, T4, FT3, CMP #### [facility] [address] [place] [address] Dr. Alicia Patel Anion gap [Moles/Vol] 14.4 mmol/L Normal [facility] Comment on above: Performed By: #### T SH, LIPID, T4, FT3, CMP #### [facility] [address] [place] [address] Dr. Alicia Patel AST [Catalytic activity/Vol] 23 U/L Normal 15-37 [facility] Comment on above: Performed By: #### T SH, LIPID, T4, FT3, CMP #### [facility] [address] [place] [address] Dr. Alicia Patel Bilirubin [Mass/Vol] 0.5 mg/dL Normal 0.2-1.0 [facility] Comment on above: Performed By: #### T SH, LIPID, T4, FT3, CMP #### [facility] [address] [place] [address] Dr. Alicia Patel Calcium [Mass/Vol] 8.8 mg/dL Normal 8.5-10.1 [facility] Comment on above: Performed By: #### T SH, LIPID, T4, FT3, CMP #### [facility] [address] [place] [address] Dr. Alicia Patel Chloride [Moles/Vol] 110 mmol/L Critically high 98-107 [facility] Comment on above: Performed By: #### T SH, LIPID, T4, FT3, CMP #### [facility] [address] [place] [address] Dr. Alicia Patel CO2 [Moles/Vol] 24.2 mmol/L Normal 21.0-32.0 [facility] Comment on above: Performed By: #### T SH, LIPID, T4, FT3, CMP #### [facility] [address] [place] [address] Dr. Alicia Patel Creatinine [Mass/Vol] 2.41 mg/dL Critically high 0.70-1.30 [facility] Comment on above: Performed By: #### T SH, LIPID, T4, FT3, CMP #### [facility] [address] [place] [address] Dr. Alicia Patel EGFR-AF SALVADOREAN 32 mL/min/1.73m2 Critically low >=60 [facility] Comment on above: Performed By: #### T SH, LIPID, T4, FT3, CMP #### [facility] [address] [place] [address] Dr. Alicia Patel EGFR-NON AF SALVADOREAN 26 mL/min/1.73m2 Critically low >=60 [facility] Comment on above: Performed By: #### T SH, LIPID, T4, FT3, CMP #### [facility] [address] [place] [address] Dr. Alicia Patel Globulin (S) [Mass/Vol] 3.6 g/dL Normal [facility] Comment on above: Performed By: #### T SH, LIPID, T4, FT3, CMP #### [facility] [address] [place] [address] Dr. Alicia Patel Glucose [Mass/Vol] 72 mg/dL Critically low 74-106 [facility] Comment on above: Performed By: #### T SH, LIPID, T4, FT3, CMP #### [facility] [address] [address] [address] Alicia Patel Potassium [Moles/Vol] 4.6 mmol/L Normal 3.5-5.1 [facility] Comment on above: Performed By: #### T SH, LIPID, T4, FT3, CMP #### [facility] [address] [place] [address] Dr. Alicia Patel Protein [Mass/Vol] 7.0 g/dL Normal 6.4-8.2 [facility] Comment on above: Performed By: #### T SH, LIPID, T4, FT3, CMP #### [facility] [address] [place] [address] Dr. Alicia Patel Sodium [Moles/Vol] 144 mmol/L Normal 136-145 [facility] Comment on above: Performed By: #### T SH, LIPID, T4, FT3, CMP #### [facility] [address] [place] [address] Dr. Alicia Patel Urea nitrogen [Mass/Vol] 32.0 mg/dL Critically high 7.0-18.0 [facility] Comment on above: Performed By: #### T SH, LIPID, T4, FT3, CMP #### [facility] [address] [place] [address] Dr. Alicia Patel Urea nitrogen/Creatinine [Mass ratio] 13.3 mg/mg Normal [facility] Comment on above: Performed By: #### T SH, LIPID, T4, FT3, CMP #### [facility] [address] [place] [address] Dr. Alicia Patel T4on 11-06-2022 T4 [Mass/Vol] 7.90 ug/dL Normal 4.50-12.10 [facility] Comment on above: Performed By: #### T SH, LIPID, T4, FT3, CMP #### [facility] [address] [address] [address] Alicia Patel TSHon 11-06-2022 TSH 0.263 uIU/mL Critically low 0.358-3.74 0 [facility] Comment on above: Performed By: #### T SH, LIPID, T4, FT3, CMP #### [facility] [address] [address] [address] Alicia Patel URIC ACID SERUMon 11-06-2022 Urate [Mass/Vol] 7.3 mg/dL Critically high 3.5-7.2 [facility] Comment on above: Performed By: #### T SH, LIPID, T4, FT3, CMP #### [facility] [address] [address] [address] Alicia Patel Pre-Certification Formon Pre-Certification Form [id number]#[id number]:127 Normal [facility] ECHOCARDIO M/2D COMPLETEon 0 10-26-2022 ECHOCARDIO M/2D COMPLETE Patient: VICTORINO SMYTH Exam Date: 10/26/2022 : 1940 Gender:M Ordering : IRIS CORONEL Admission #: [id number] Family : DR TRAY ALFARO . Order #: [id number] CLICK HERE TO VIEW EXAM ECHOCARDIOGRAM REPORT [...] [place] M.D. on 10/28/2022 at 13:02 Normal [facility] RAD - MISCon 10-25-2022 RAD - MISC [id number]#[id number]:127 Normal [facility] XR KUB 1 VIEWon 10-22-2022 XR KUB [...] by: TYLER MONSIVAIS Date: 2022-10-22 09:12 Normal [facility] RAD - Ultrasound Reporton RAD - Ultrasound Report [id number]#[id number]:127 Normal [facility] US KIDNEYSon 10-18-2022 US KIDNEYS EXAMINATION: US [...] by: TESS FORD Date: 2022-10-18 07:04 Normal [facility] IntraOperative Documentson 0 10-15-2022 IntraOperative Documents [id number]#[id number]:127 Normal [facility] 37on 10-14-2022 37 Increase amlodipine back to 10 mg daily Increase Isosorbide to 120 mg daily ( 2 tabs) daily for chest pain Goal b/p is 130/80 or less Call office for continued chest pain/burning, shortness of breath, or call 911 for any worsening symptoms. Normal [facility] BNPon 10-14-2022 Natriuretic peptide B (Bld) [Mass/Vol] 300.0 pg/mL Normal <=1,800.0 [facility] Comment on above: Performed By: #### T SH, LIPID, T4, FT3, CMP #### [facility] [address] [place] [address] Dr. Alicia Patel CBC AUTO DIFFon 10-14-2022 BASO # 0.0 103/ul Normal 0.0-0.1 [facility] Comment on above: Performed By: #### T SH, LIPID, T4, FT3, CMP #### [facility] [address] [address] [address] Alicia Patel Basophils/100 WBC (Bld) 0.6 % Normal 0.2-2.0 [facility] Comment on above: Performed By: #### T SH, LIPID, T4, FT3, CMP #### [facility] [address] [address] [address] Alicia Patel EO # 0.2 103/ul Normal 0.0-0.7 [facility] Comment on above: Performed By: #### T SH, LIPID, T4, FT3, CMP #### [facility] [address] [place] [address] Dr. Alicia Patel Eosinophils/100 WBC (Bld) 4.6 % Normal 0.9-7.0 [facility] Comment on above: Performed By: #### T SH, LIPID, T4, FT3, CMP #### [facility] [address] [place] [address] Dr. Alicia Patel Erythrocyte distribution width (RBC) [Ratio] 14.2 % Normal 11.0-15.0 [facility] Comment on above: Performed By: #### T SH, LIPID, T4, FT3, CMP #### [facility] [address] [place] [address] Dr. Alicia Patel Hematocrit (Bld) [Volume fraction] 36.1 % Critically low 42.0-54.0 [facility] Comment on above: Performed By: #### T SH, LIPID, T4, FT3, CMP #### [facility] [address] [place] [address] Dr. Alicia Patel Hemoglobin (Bld) [Mass/Vol] 11.8 g/dL Critically low 14.0-18.0 [facility] Comment on above: Performed By: #### T SH, LIPID, T4, FT3, CMP #### [facility] [address] [place] [address] Dr. Alicia Patel IG # 0.03 10e3/ul Normal 0.00-0.03 [facility] Comment on above: Performed By: #### T SH, LIPID, T4, FT3, CMP #### [facility] [address] [place] [address] Dr. Alicia Patel IG % 0.6 % Critically high 0.0-0.5 [facility] Comment on above: Performed By: #### T SH, LIPID, T4, FT3, CMP #### [facility] [address] [place] [address] Dr. Alicia Patel LYMPH # 1.1 103/ul Critically low 1.2-3.8 [facility] Comment on above: Performed By: #### T SH, LIPID, T4, FT3, CMP #### [facility] [address] [place] [address] Dr. Alicia Patel Lymphocytes/100 WBC (Bld) 22.6 % Normal 20.5-60.0 [facility] Comment on above: Performed By: #### T SH, LIPID, T4, FT3, CMP #### [facility] [address] [place] [address] Dr. Alicia Patel MANUAL DIFF REQ NO Normal [facility] Comment on above: Performed By: #### T SH, LIPID, T4, FT3, CMP #### [facility] [address] [place] [address] Dr. Alicia Patel MCH (RBC) [Entitic mass] 33.2 pg Normal 25.9-34.0 [facility] Comment on above: Performed By: #### T SH, LIPID, T4, FT3, CMP #### [facility] [address] [place] [address] Dr. Alicia Patel MCHC (RBC) [Mass/Vol] 32.7 g/dL Normal 29.9-35.2 [facility] Comment on above: Performed By: #### T SH, LIPID, T4, FT3, CMP #### [facility] [address] [place] [address] Dr. Alicia Patel MCV (RBC) [Entitic vol] 101.7 fL Critically high 80.0-94.0 [facility] Comment on above: Performed By: #### T SH, LIPID, T4, FT3, CMP #### [facility] [address] [place] [address] Dr. Alicia Patel MONO # 0.7 103/ul Normal 0.3-0.8 [facility] Comment on above: Performed By: #### T SH, LIPID, T4, FT3, CMP #### [facility] [address] [place] [address] Dr. Alicia Patel Monocytes/100 WBC (Bld) 13.8 % Critically high 1.7-12.0 [facility] Comment on above: Performed By: #### T SH, LIPID, T4, FT3, CMP #### [facility] [address] [place] [address] Dr. Alicia Patel NEUT # 2.9 103/ul Normal 1.4-6.5 [facility] Comment on above: Performed By: #### T SH, LIPID, T4, FT3, CMP #### [facility] [address] [place] [address] Dr. Alicia Patel Neutrophils/100 WBC (Bld) 57.8 % Normal 43.0-75.0 [facility] Comment on above: Performed By: #### T SH, LIPID, T4, FT3, CMP #### [facility] [address] [place] [address] Dr. Alicia Patel Platelet mean volume (Bld) [Entitic vol] 10.1 fL Normal 9.5-13.5 [facility] Comment on above: Performed By: #### T SH, LIPID, T4, FT3, CMP #### [facility] [address] [place] [address] Dr. Alicia Patel PLT 160 103/ul Normal 150-450 [facility] Comment on above: Performed By: #### T SH, LIPID, T4, FT3, CMP #### [facility] [address] [place] [address] Dr. Alicia Patel RBC 3.55 106/ul Critically low 4.70-6.10 [facility] Comment on above: Performed By: #### T SH, LIPID, T4, FT3, CMP #### [facility] [address] [place] [address] Dr. Alicia Patel WBC 5.0 103/ul Normal 4.0-11.0 [facility] Comment on above: Performed By: #### T SH, LIPID, T4, FT3, CMP #### [facility] [address] [place] [address] Dr. Alicia Patel Coding Summary.on 10-14-2022 Coding Summary. CD:[id number] Ww+PGh lYWQ+TW2DZDLsQ43suVGkaX0sA 0NMTElOSywgQVBQTElOSyIgbmF kIS2qzPHzCDRl IC8+PS8pBGQsJgnspDRor4R6wW W0Z67skm8cMJbocSO9DGAmRxJq ngbqp2ykmSd9WSpeLandEpHg NXVbrH81UAL9uD46Ex01jRWtvB Bex8nqnDm4JlPvESOeBWD8jNmh TKwlj4EwGTTwN75boFSdv7J9 JXMquRqjfWFwUhIcvDY5nK7jKT msoynsr2giqbyhCmv5zk55mDKh r1K7xOD9T4HmwuR5DTMneUYc AckptBWCkY2xfybvr7yiaoqzTb AyPXTfYOj4MUs8RETwvBviMzZe BP79QHV5LAFwovAuT5MoEIYn vUzsRyS1z1O6Vo3XM3GVDevrQ9 VNTUFSWTwvdGQ+CE44xy67Z4Ie VgyrWci3MIKmQFN6aXO2eR8d BJZpQDvqw7X5iFA3E0UmgcXrci 4bo8btVLUaXZwoX66cgCJcy2M5 ABEqjMY3AZFqeXqtFwEmbS72 Oyc+VQUhkEjzd0UyVvwof7qej0 syrQf3HnynCHOvacRjzKndOOJ2 e1YuGu2cMZFnrWL1cXU1bF4h TiSlPrP3HMbrA027CqVdfEGvIg beM28pN4TjeIM+GNVyHud8XQQu bXqoER8aS0KkSTOxqrotqPGg vPlnYP8cWWDvtjthQOXpbX0kTU BpE3f5JeFwVhG7WSkxZ3XdPVUd atypPa58sH2zOzHdOhB6ERlw H7VnxuO6WNCgxJVdAWrsJUU7X0 1kr0T6TJUmPBVdFQG4nAC1xG4u bGlnbjogbGVmdDsgdmVydGlj IDkqULksM669YZHwzTlbHwHbON luZyBEYXRlOiAgMDQvMjAvMjAy MzwvdGQ+YNAbBJP7bXahBPNr zQMjMSbcEk0qkJdpgQbjJO7tPR XzozdwYPUerX9bTPTynQIxkMke XF1wQKZttkddb988TlSmOUB8 IDJyfHVvU9VmrC6nTaEgDJAwMF TkH0MjhWSrSBbkT792BBaqLyZ3 NODfrkTsQ9DjJQOjhMveJfI0 w0J1Gf9Ps3HyifyaR8DxwTOvMq KvUvmfEJo1I5AkQbkifVE+PC90 EFZkSS38ZZu0EEH5iCesHVlj YMAsF0EzvT6iZnXnQPRsAZOnQb c+PHRhYmxlIHdpZHRoPScxMDAl ZcCvvTqfOL5lXg5kJFDuSLXq pRtfcDDsSdDay4zxTCOhWXfeLK 5luVnnM1LerID7SNNog4u4Gl71 F64uH7TvaGF+ICCemSB6zYZ9 kO7fOsPhGpX7FBqnA601SuUiuX GaTrldl5yzk2pjqKi1IjU3BQAo pqNotApmVPU4k7VkSy95U07u IHdpZHRoPSIxNSUiIHZhbGlnbj 7bvU5qZe5+VINeaKF2dAT6gM3k EvXhBaP8QOfuB225QwXzoIBg Yegpq3wjy7hciTh6RfKrPYZdfg UfiNoaKUU6p6IiXt07W4KvlCvq v6OkNwo2so16lPTsu7S2qBW0 X1PfJDDquuomhSXrrXvaBX3rGA RaelacTKXghK6gAOQpP7q7IxHi OvD9JEklB8NiuhY5MGRytDGy CQLfsILQnA7flemya4wzdtawVd WzZLXjAAk9MJa8SARieTlvDtWy TXN3OzY5QRG6rNOnjP0phGvz jpirpW8zCxg+INH9qISfzGBFLL 1lOjwvdGQ+CTZzZAP3yDnrOHki XHLdfR2rORBkF5f3YpWuLzX1 SWesO7HvjeQ2TSCmcOMePNAupU GJbE8orqsly2gqfyzeJsZtUVHy GBx3RZk9DQIzmAzqMtHkPWH8 CiD4UMQ9oSFgnQ7kwFduliqgfI 9wOyc+CnsecRldQTU1FNo3V0Eb Rbw0GMLgdQczZR9yhKHaFPqk Wf5dcNmzjTecUJ5uEGHwunlxc8 33JoCzn0rbKKHdoNGcMUgqBJP0 O96uj2F0JPOuUPAbWQG0rYD9 jY4boJqlaotksEQihZgcsmQwaH exHHnqFIpkO210SBXrjHhcVvBx KIu7G9MoQoo1HRDiiKrqQH6c lPEaYXrbQf1jtWsigEwsUG8eTH Nfycekg883UsKht8wyGFWfeTJo CCxaXVE1H82hg2O0NCGtDGPu MVN0yBT5qA8qbAymkrjkoQJadE hqbnIlhQbaFHoiEIkmR102WKMp nOxvOwKjqLo8B9PsEhw2IHBr wAcnIO5feEApZFaaKc9kdYetwO xuXE9hZJWlbouxt936CeCbe7cd FEAgcDEeZYkfROC2I64zb8V8 XACtQUMrRBD6nUB5oE1noDfksj ogbGVmdDsgdmVydGljYWwtYWxp U989OCRjfNmyDuPhzAlhbvLh GNehKPa3I0LiTcyguZG+PC90YW MlQA35uCFteNWzk8olbMu8GqQo WMBlXGK1rLufEFiag5RySOZr U62zcICwc9E2GRHsdTrkkSSsDp LolPQ3lX6cSCwbaascv5kxpgoe Ocmsi1sizd67oS11K91lSVwf GJQmMUSaFNAhPFRwcPakvo4zsL 9wIi8+KTGniNM2eIF2bM0wVNIa WuZ4YYptM724KxUgfEYbPljx p7xlz9beqYj0HxM4AVYrxxRrcT pwPOU7j7WxFd87R11cEUkgWOCo BDOwZVWwUXXnjKfqgx3wwO7r Ii8+YRLsuLV6mXG0lY8kAqSnUy W7AMwwG042VpPjgAIvCmdlP34x S3QkjBE+HIFaVre1QAOfuAqc RC1hkOAkHGamAq5bQLH8GbJsGf AcWHiwA7KqXLWdbsrwoslsbPV5 XJIxQBZmaG66Td3jtEkgDYBi nBFFaH8hpxaai0smuiprXpLcQM OsDIk3HFk8IENkmZgrRlEuGNJ5 YnL9LUH1eFGljP2vxSrvjbct wO2yT9FaYBCehlpxQj97aN3cHb XuItX5KGfdBej+WLCMXD1JGxbc CzYTSkIUXAORCK35AE90pJNt l6H5oRU7X7NwBYZrzwuvppipqN M1JVLrIWMlmT38sDLkZPtnLg7x q6V6e943ELRqCCBgnL94Ji0f cOcxUBQlwVPXzY3gaqbce3dxiq wsZyGpPGOnXGt1BFa9GLRwlAkh VwByZVO8FhM1VCX9vNWuxX5v qDfazzmwuS0hWlf+MDIvMDQvMT n5HhlhuXZ+PLMnRSH8kWlgFAji VEPciX0gYNCkS2j8DePeGwI3 JWlaP9GdGQHvwnnrQr34nQ6uFw VeWrQ4SNwxD1BwnvE7EHNewXBj XHtmLTM1S10pe1I3FLPdEANr OTW2qSZ3mT1fvDuviidgaGQcyU vzqtDcuBosYGwlNBobE797FPBd oHjvDcjlPOucSIWfVV27IL39 jWOqu5O9dLA8F0FsMKYkghdyzm cesYG7XHPoNMRxmU51mVBlLRiw Lw3sy9W5b288CQPnODWqmJ14 Cw4mwVoqURKxgOFGpS2zxlndi7 hyslxtEgNeBAYpOPc9OSs3LIDr cTafJkKnEOW8QzG1ALC6uKIa nB4yoToifceaiS9wNtk+TWFsZT wvdGQ+CRVcSVC2pQlxFNheILYi cT0uTMRgA9o9IeHcAuV9VEaq G0FiTCNtuuklXw71bB6cVpBkGq R6CQjmF2SagwR7JYKdeILdQRcr QCQ1A15mx9O2ROYyBUBrULT8 pES1iN1dfPjjalokiSXeeVjspo YceMbvPFjvZUnmY776IUOzaFvo KmFfLcPrOUQctukaQ0VeLMVK HSokW6HhW1AhbYxmjOD+PC90cj 20O0AlGwrdUuv5HKJcTEO6eRN2 hA0mTNNfYHhok4T3zII0X0Wd mrJmar9kc7wgIXKhDSwrF54muX Alj9K0NVUfrTX3VKSkcHtqPtMz wY75Gvj+CIKqjWeri1NxDupd u9snw6uzxEv3XuDfTJCffeGwfH ydWRM7x7IpMc30C31vHTdgRNVi YNVpEKJmREKwbFdbwn1njS5k Ii8+CMVelMN2xHH6oY4xXvSbDu O0VAcyY343KrAesWKuWyvfs2fr y2vgcMr4OeIvTZOdhpQymAjn SPA7k8TxXd64D8RotYjes3IzCl f7ct52hZBxb4R1zBM8O1RjGVWb sfjfrBMeyBcaQL9cFVBbocau RLVmtJ0zMSHxK4z0CcQqSzZ6PT hmM6ExwcN6TSVipHHoEWUhlENL sG5ubhdcm0wvainfCkLnHVWg ZOl6JCb8YLSnsDpwXbRnJBB2Jc U6UNQ1rUKirT8wqDgmvwyuqC4t Oyc+RYm3t4zyjAIbII2ndGP7 OA94AW10zJOkd7K7aDR1C8MzQU BdmncjankkmKV9VUVqVMOmrG64 Mq5mcTydPo6cZRQpRFR3AHPz xFMcL2PwlA5pWcXwRCGrZQDdN1 CqgXIiZOgmX899DGmeOoP3OMQb hkHlT2ZeQRTbqZmlYxN4r4W6 Ew2PQV19LK88YR97qJYvy8R3rL R2R5YgXPGbcgzctwqaiOF2EQLv QYIhaC22Rp3yfBqeAk7eCUQx KGW1VJAlbKWvK4FiuV0kLyMlEQ VrCDArW4TpeQPoRBmyU658CAfw QiL8RDQxfrEzZ2UmEOXhlInc GbG7r2V8Jr0KUf24YF54XO91qZ Ytx4F1vKY5Z3MwTCMzbiqxmdlz gZL2PQYnKUDqsU62Gy4gsTay Ck0cTHVbGYC4RRNkrSFqH1QsfK 1hJnDgOLOfVBEhR7KneALjZIxo A739HHpaHfA9NWMihlZeP9Qv LAGjnCebLbT3b7K7Qu9TFFqqpq m5I1RbXpiomZP+QQ31ZUYtDW82 wVTvdREem1tpiAj9ZuDqHCQc ADO8tFkr (more content not included)... Normal [facility] Office Visiton 10-14-2022 Follow-up visit [id number] Ruben Smyth 1940 M Date Provider Department Center 10/14/2022 IRIS BLACKMAN [facility] Family History Problem Relation Age of Onset No Known Problems Mother No Known Problems Father Family Status - Relation Status Age at Mother Father Level of Service:26197 HI OFFICE/OUTPATIENT ESTABLISHED MOD MDM 30-39 MIN Reason for Visit and Comments: Chest Pain [224710] Coronary Artery Disease [187] Hypertension [246848] Normal [facility] PROF CHEM 8 (BAS METB)on Anion gap [Moles/Vol] 13.9 mmol/L Normal [facility] Comment on above: Performed By: #### T SH, LIPID, T4, FT3, CMP #### [facility] [address] [place] [address] Dr. lAicia Patel Calcium [Mass/Vol] 8.3 mg/dL Critically low 8.5-10.1 [facility] Comment on above: Performed By: #### T SH, LIPID, T4, FT3, CMP #### [facility] [address] [address] [address] Alicia Patel Chloride [Moles/Vol] 108 mmol/L Critically high 98-107 [facility] Comment on above: Performed By: #### T SH, LIPID, T4, FT3, CMP #### [facility] [address] [address] [address] Alicia Patel CO2 [Moles/Vol] 23.5 mmol/L Normal 21.0-32.0 [facility] Comment on above: Performed By: #### T SH, LIPID, T4, FT3, CMP #### [facility] [address] [place] [address] Dr. Alicia Patel Creatinine [Mass/Vol] 2.41 mg/dL Critically high 0.70-1.30 [facility] Comment on above: Performed By: #### T SH, LIPID, T4, FT3, CMP #### [facility] [address] [address] [address] Alicia Patel EGFR-AF SALVADOREAN 32 mL/min/1.73m2 Critically low >=60 [facility] Comment on above: Performed By: #### T SH, LIPID, T4, FT3, CMP #### [facility] [address] [place] [address] Dr. Alicia Patel EGFR-NON AF SALVADOREAN 26 mL/min/1.73m2 Critically low >=60 [facility] Comment on above: Performed By: #### T SH, LIPID, T4, FT3, CMP #### [facility] [address] [place] [address] Dr. Alicia Patel Glucose [Mass/Vol] 74 mg/dL Normal 74-106 [facility] Comment on above: Performed By: #### T SH, LIPID, T4, FT3, CMP #### [facility] [address] [place] [address] Dr. Alicia Patel Potassium [Moles/Vol] 4.4 mmol/L Normal 3.5-5.1 [facility] Comment on above: Performed By: #### T SH, LIPID, T4, FT3, CMP #### [facility] [address] [place] [address] Dr. Alicia Patel Sodium [Moles/Vol] 141 mmol/L Normal 136-145 [facility] Comment on above: Performed By: #### T SH, LIPID, T4, FT3, CMP #### [facility] [address] [place] [address] Dr. Alicia Patel Urea nitrogen [Mass/Vol] 36.0 mg/dL Critically high 7.0-18.0 [facility] Comment on above: Performed By: #### T SH, LIPID, T4, FT3, CMP #### [facility] [address] [place] [address] Dr. Alicia Patel Urea nitrogen/Creatinine [Mass ratio] 14.9 mg/mg Normal [facility] Comment on above: Performed By: #### T SH, LIPID, T4, FT3, CMP #### [facility] [address] [place], [place] [address] Dr. Alicia Patel TROPONIN, HIGH SENSITIVITYon 10-14-2022 HSTROP 9.6 pg/mL Normal 4.0-76.1 [facility] Comment on above: Result Comment: CUT- OFF POINTS HAVE BEEN ESTABLISHED BASED ON THE FOURTH UNIVERSAL DEFINITIONS OF MYOCARDIAL INFARCTION. THE UPPER REFERENCE LIMIT (URL) OF TROPONIN, DEFINED THE 99TH PERCENTILE OF cTnI DISTRIBUTION IN A REFERENCE POPULATION, HAS BEEN CONFIRMED THE DECISION THRESHOLD FOR [place] DIAGNOSIS. Performed By: #### T SH, LIPID, T4, FT3, CMP #### [facility] [address] [place], [place] [address] Dr. Alicia Patel Main OR Intraoperative Recor don 10-13-2022 Main OR Intraoperative Record IntraOp Document Type FT Summary Primary Physician: Ni OLIVARES MD Finalized Date/Time: 10/13/22 15:17:44 Pt. Name: VICTORINO SMYTH/Sex: 1940 Male Med Rec #: [id number] Physician: Ni OLIVARES MD Financial #: [id number] Pt. 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 Normal [facility] Consent for Anesthesiaon Consent for Anesthesia [id number]#1.00CD:127 Normal [facility] Discharge Instructionson Discharge Instructions [id number]#1.00CD:127 Normal [facility] IntraOperative Documentson 0 10-08-2022 IntraOperative Documents [id number]#1.00CD:127 Normal [facility] IntraOperative Documents [id number]#1.00CD:127 Normal [facility] IntraOperative Documents [id number]#1.00CD:127 Normal [facility] Preoperative Documentson Preoperative Documents [id number]#1.00CD:127 Normal [facility] Preoperative Documents [id number]#1.00CD:127 Normal [facility] Preoperative Documents [id number]#1.00CD:127 Normal [facility] XR Abdomen 1 Viewon 10-09-19 23 XR [...] mGy = 0 DAP = 0 Normal [facility] CHEMISTRYOrdered By: Lab ROP User on 10-07-2022 Glucose [Mass/Vol] 101 mg/dL High 55 - 99 mg/dL [facility] POC Subsection Comment on above: Result Comment: Jackelin quach RN/ POC Device SN [id number] Invalid Interpretation Code FT POC Subsection POC User ID [id number] Invalid Interpretation Code [facility] POC Subsection POC Username BEE NORRIS Invalid Interpretation Code [facility] POC Subsection Capillary Glucose POCon 09-25 Glucose [Mass/Vol] 101 mg/dL High 55-99 [facility] Comment on above: Result Comment: aJckelin quach RN/ Performed By: #### 2 [id number] #### [facility] [address] [place] [address] Consent for Procedure/Surger yon 10-07-2022 Consent for Procedure/Surgery [id number]#1.00CD:127 Normal [facility] Consent for Treatmenton 09-25 Consent for Treatment [id number]#1.00CD:127 Normal [facility] H&P Updateon 10-07-2022 H&P Update [id number]#1.00CD:127 Normal [facility] Inpatient Patient Summaryon 10-07-2022 Inpatient Patient Summary [address] [address] [facility] Clinical Discharge Instructions PERSON INFORMATION Name: VICTORINO SMYTH PHYSICIANS Admitting Physician: Ni OLIVARES MD Attending Physician: Ni OLIVARES MD PCP: Erum OLIVEROS, Tray Discharge Diagnosis: Comment: PATIENT EDUCATION INFORMATION Instructions: Post Op Patient Instructions - FT (CUSTOM); Lithotripsy, Care After Medication Leaflets: Follow up: With: Address: When: Ni OLIVARES [address] [place] [address], [address], [address] [address] Business (1) Comments: We were [...] Location Start [facility] Office Visit [facility] [place] 10/29/2022 8:45 AM 10/29/2022 9:00 AM Confirmed MEDICATION LIST New Medications [id number], [address], [place] [id number], [phone] acetaminophen-hydrocodone (acetaminophen-hydrocodone 325 mg-5 mg oral tablet) [...] Capsules By Mouth every day. Comment: Normal [facility] Main OR PACU I Recordon 09-25 Main OR PACU I Record PACU Phase I Docum ent Type FT Summary Primary Physician: Ni OLIVARES MD Finalized Date/Time: 10/07/22 16:21:28 Pt. Name: HAJAVICTORINO/Sex: 1940 Male Med Rec #: [id number] Physician: Ni OLIVARES MD Financial #: [id number] Pt. Type: A Room/Bed: [facility]/ Admit/Disch: 10/07/22 09:01:16 - Institution: Case [...] By: ALESSIA YOON RN 10/07/22 16:21 Normal [facility] Main OR PACU II Recordon Main OR PACU II Record PACU Phase II Doc ument Type FT Summary Primary Physician: Ni OLIVARES MD Finalized Date/Time: 10/07/22 18:36:17 Pt. Name: VICTORINO SMYTH/Sex: 1940 Male Med Rec #: [id number] Physician: Ni OLIVARES MD Financial #: [id number] Pt. Type: A Room/Bed: AS06/ Admit/Disch: 10/07/22 [...] By: Eliz Mcbride RN 10/07/22 18:36 Normal [facility] Main OR Preoperative Recordo n 10-07-2022 Main OR Preoperative Record PreOp Document Type FT Summary Primary Physician: Ni OLIVARES MD Finalized Date/Time: 10/07/22 15:12:57 Pt. Name: VICTORINO SMYTH/Sex: 1940 Male Med Rec #: [id number] Physician: Ni OLIVARES MD Financial #: [id number] Pt. Type: A Room/Bed: Admit/Disch: 10/07/22 09:01:16 [...] 10/07/22 15:12 Aravind Gatica 10/07/22 15:12 Normal [facility] Monitor Recordon 10-07-2022 Monitor Record [id number]#1.00CD:127 Normal [facility] Monitor Record [id number]#1.00CD:127 Normal [facility] Operative Reporton 3 Operative Report Patient: SHERYL [...] it well. [facility] is [facility] and then back to PACU in [...] patient's that he needs to contact his pet sitter and/or Dr. Jose Alfaro to arrange for possible further follow-up regarding this. She was in agreement with the plan.. Estimated Blood Loss: 0 ml. Complications: None. Anesthesia type: General. Normal [facility] Comment on above: Result Comment: Elec tronically Signed By: Ni OLIVARES MD\.br\Date and Time Signed: 10/07/22 15:51 EDT Outpatient Surgery Discharge Instructionon 10-07-2022 Outpatient Surgery Discharge Instruction [address] [address] Patient Discharge Instructions PERSON INFORMATION [...] up: With: Address: When: Ni OLIVARES [address] [place], [place] [address]K[address] IZZY, [address], [place] [id number] Business (1) Comments: We were able to [...] any other anesthesia procedures. Type Location Start [facility] Office Visit [facility] [place] 10/29/2022 8:45 AM 10/29/2022 9:00 AM Confirmed [...] to serve you. Thank you for choosing [facility] HERE ARE THE MEDICATION CHANGES THAT OCCURRED DURING YOUR HOSPITAL STAY New Medications [id number], [address], [place] [id number], [phone] acetaminophen-hydrocodone (acetaminophen-hydrocodone 325 mg-5 mg oral tablet) [...] Instructions: Lithotripsy, Care (more content not included)... [facility] Patient Education - Texton 0 10-07-2022 [...] these instructions at home: Medicines ? Take qrsp-pjb-wgchmyj and prescription medicines only as told by [...] help ri (more content not included)... Normal [facility] Progress Note-Physicianon Progress Note-Physician Patient: VICTORINO SMYTH Age: 82 years Sex: Male : 1940 Associated Diagnoses: None Author: Toya OLIVEROS, Timothy Motta Postoperative Information Postoperative disposition: Postoperative disposition: To PACU. Optimetrix number: Optimetrix number [id number]. Anesthetic utilized: General. Physical Examination Vital Signs [...] when meets criteria ( To home ). [facility] Comment on above: Result Comment: Elec tronically Signed By: Timothy Pittman MD\.br\Date and Time Signed: 10/07/22 16:54 EDT Progress Note-Physician Patient: VCITORINO SMYTH Age: 82 years Sex: Male : [...] Problems Acute kidney failure / SNOMED CT 80789332 / Confirmed Anticoagulated / SNOMED CT 580389878 / Confirmed BPH associated with nocturia / SNOMED CT 0068906986 / Confirmed BPH with urinary obstruction / SNOMED CT 7613840051 / Confirmed Chronic obstructive pulmonary disease (COPD) / SNOMED CT 00284377 / Confirmed Coronary artery disease / SNOMED CT 79803195 / Confirmed DM (diabetes mellitus), type 2 / SNOMED CT 703447644 / Confirmed Elevated PSA / SNOMED CT 7847588831 / Confirmed Erectile dysfunction / SNOMED CT 8169958265 / Confirmed Flank pain / SNOMED CT 712175592 / Confirmed H/O: hypothyroidism / SNOMED CT 556698785 / Confirmed Hydronephrosis / SNOMED CT 96966161 / Confirmed Hydronephrosis with ureteral calculus / SNOMED CT 9508003601 / Confirmed Hyperlipidemia / SNOMED CT 67308019 / Confirmed Hyperplastic colon polyp / SNOMED CT 7578695484 / Confirmed Hypertension / SNOMED CT 1007181091 / Confirmed Kidney stone / SNOMED CT 231547173 / Confirmed Myocardial infarct / SNOMED CT 92471130 / Confirmed Occult blood in stools / SNOMED CT 71821186 / Confirmed Postprandial diarrhea / SNOMED CT 72541393 / Confirmed Prostate cancer / SNOMED CT 2834459223 / Confirmed Rheumatoid arthritis / SNOMED CT 812398504 / Confirmed Ureteral stone / SNOMED CT 76666774 / Confirmed Urinary retention / SNOMED CT 743753209 / Confirmed, Active Problems (24) Acute kidney [...] Mean Kayce (more content not included)... Normal [facility] Comment on above: Result Comment: Elec tronically Signed By: Toya OLIVEROS, Timothy Villanueva.br\Date and Time Signed: 10/07/22 16:52 EDT Coding Summary.on 09-22-2022 Coding Summary. CD:[id number] Ww+PGh lYWQ+MR4EUNGmS86gmLTdkF1jA 0NMTElOSywgQVBQTElOSyIgbmF dTC8rdNDqABEn IC8+VS3xMICeRoxwnVLcw4G5tQ G3Q03lrl6kDMgrsYB2MGJzHxFn kztmw9vjaJw5AZwjDekqNhUi SMTreC69ACV4tE80Bk83dEBqiV Yyx5lhwXl9EfRjYMBzSOU7bPnv HMbto3EjATZiV78hrEHki0G1 VLKcwLkafMNuKjKnbYC8wZ9qWK uetlptr6kqoerhMiu0vc45oFLo i3T1pIY2I9VznwN5FJJhwIAw HcrtpLPRlE4qtoarm6zpbizbHl PjOEYlMUe5PJm2WLDpkQvwRcVj AE34FNT0RQUlcpWvJ0EpJSHw gAqwYuW3p1X2Nt5TQ4ZMIlavQ6 VNTUFSWTwvdGQ+OR72xm14O8Rd PikcFse3SNPjFAY1rTY8dI9b MPSlQJnln5S6fEO8V3EixzRzdg 5ce0kpBIFpQDvlR05vmWMif2C6 BUDnoUI2TETtbTpoBaItqW63 Oyc+PAWgxMioy4IyIultr5lir1 sffNf4LmqzATOjoxRkbQrwDSL1 p8KpNv0lBPCuuLQ8aAU2uU8g NbXzMqE3BGmrM323XtPhjKWcRc jpG45uY8TybAO+QYOsAsx5PDLl rBmyDY6jQ3YkZOKcngwpaBLj kXamAX8eTHHmflguOLMsgO3tWV BaV5o8MqBkJzJ9LTkwQ5WmCPTy wvvwXw66iT8tNfFrWdQ9RRhx F4DuzbO3RRBylWKeMSccZYU7E6 1fu0J4SCNyKEDcLZZ6bKW9bH3f bGlnbjogbGVmdDsgdmVydGlj IIstUEsvF683XVElzEpaKuJiZM luZyBEYXRlOiAgMDMvMjkvMjAy MzwvdGQ+FMAgHNU1dUbnYCQa eKSnWWniIf8osLapqAgyTZ5jBS NrlczzYAHphN9wIUZivZXcbTfc TK2iXQIpcuhns806BaEkPDT0 BLZulKAsF5UnoF6uDuWxWGPqSB NnR9VxgGEkLZhkU389IFysWrE6 TMTntcOxE2GeOYLokVkaHoF6 z3Y6Rb5Un8OaiyjfS3TptFLhRm IaHhdiKPy9K8TeHmhghCA+PC90 MBGiEK35WDu8WAT0uMblTDoh ZLTtH5ZjnW3hWlEzATKnFQRvZn c+PHRhYmxlIHdpZHRoPScxMDAl SrQblXxyZC0zTm0oNSJcNKWc uHxsxGErIjSqa6akVUXyKIknAG 4luLhwF7CnfAA1YEUmf8t8Cu67 K25kC2KwhHM+IAWieIK4pWO6 tP6aSvVvOqX5SYeeR963TpMliO WzXslvn4suq7jusSe0JjS5XUKp vcIzfGayGPS2k8BhXx79R38s IHdpZHRoPSIxNSUiIHZhbGlnbj 6eeK7qMd6+VDXklYE0eQH4bF3e LyZfBoH6ZIsdV198JxUfcQGq Fkffr5vuc2gmsTa9OxHzVOIsev BcqNmoAAB2m6FzXz56M4IzbXdg s3BsZci7dd05zTHpm4K5iWJ5 X2FxJVHgwcjeqOUvvFqaXJ7bVG XlfvskPHIgcL6pIAWpN4y1ZuRq MmS5OXjbY1PoyxI6RCGyaBJj EITktWKNaA7foftos1aflrpjUl OoPCDhGUc4FDo0TGDypAtzGyOi OAO7GpC5HEU3rXHldG1heEky bvvfzG1kSze+NRO7qXGguZIQXV 1lOjwvdGQ+LCStYBF6cJylRKhs BJShgX9hLOWgR2j5FcGnEbB4 KAcjA6XoqaY1AIYucBDrBFRdaB QLnX7igxlln3qvcimyMvKtEYRp IPi6DJa6UEXpgUnnCzPkOTW7 ToN0VOP7oUCarS1pbGprdwuikF 9wOyc+SkczkPohRHK6PIl0V2Kx Wbe2OCVmuCxoPV0onMZxDFga Ea9gjLwxcDbpAX4eSBZbqyvlz4 38YqFei1rdNCJegALpWHbxEXW5 V70tk8M1KQVySHGhHFC0lNU5 zY3gxMzucgkmsTRbpZsbfkMtbW ryBQhrCEvxM084KDNyqBfwEwNy MSo0H0NeThm0KDNcjJduBE8t lWWdCOpvGe0qoJaxwRcyYI7pTJ Rvekhbn961FhJpy2btLYSthKWu NWezZYP8K65xz8W7FQOtDDQj WJT7lTL6dE6poFuseedpqMFtpP efspEqxOkrHBpqFBqqZ288MWZb qUxcHiUdhOx1Y1EuFar7CTXu pBfdQM9oqOBwVWuqZo6tnNkgaX avWS7aITSmkwoqr394DbKih4kx XNOaaAFzPOsgFHV4F82zq2Z0 BFDsKXXrTHR8kVI0fR3beEflyt ogbGVmdDsgdmVydGljYWwtYWxp T641PONytInlSjFxvZdmngEe SBvdCUg6M7DuXldgxEG+PC90YW KsYP35mUVywUQwn3lspFr7CrHz FQZqVTB8uKicMIgzu7WoAPZl A26jbYZpe3Z0QSSrqMiqgOTnOj ZwrUZ6sJ1yIOgszhzyh9spyvqx Glypa6ywyi98pR50U45gWWgn ROEjDIDtAPEtLAAvjGdsbl2niR 9wIi8+NNIzpVW7nVI5aO1vDWRe JmB8IVmkI267FcZbsTRjDbaa a4rbb0bcoRy3MfK4PSBucaHpvX umGNN3f7KyBm44L28lTXslPATc ZBEpMXDjHZRxuDftnc6giF2d Ii8+QCBffMN7aRI3rY4xNfKlKa I6MYlbA663RcIfxYFqPdxhI50e I5AayWD+ELQlHuy3JHRuiUmm UW8hkZDwEEmwUy5zPVL9MmBqSj UpOStwW0LvWWZrzlyrtjzevWP1 UFNtGNNnvK39Xp7yiXteVXAr oUTArM6zjrymm3nbcrmdSfAdLB ZaGXx6PLf8HMQjwKkzBfOkDQB5 LfY8WGP6jZYcqA0diYnzlsqn qP5aX7FpTEJeducgJn00yD2aHp YlHpQ1HCxeGrm+KEKZOH0XAqvh SuEZZjJTDBAZGW96BE09tXIa b2U2qCP4X4ZpYWCejuwxkpvwtY F2PCDuREKthD30iHSqACkfMr8k r3W9e967NZNrNYVekZ98Ds3e jUqoNIIdbNIRoZ6vrqwtu0qeax wzYwDhTLCaWBw8YMo9DQBctXfc HeWaQPO3YfQ4AJX6kUBaxE2o mXzoksoiyJ2iYng+MDIvMDQvMT l9DgrvfJJ+JMCqCMJ9vGcoLAyj BAIflT2tXXItD2b4TdEzQzE7 WBmyR1AxMZJwvkelEe41tG0hRr KuKjC6FQopE8LxxxU6JBJdcHSk DDfhKYB3P56nj9V5RFBmSVRw MVG8yZS8pI5ssZkfpxyitQBgiQ trqeMvxGvpUNxoMRtiA680ZHGb kIdnQthcVNprWRKpMG29US17 rSRdb9T2rFC8X3RtOXXnftiwgf iakEC2VAJbHHJwzG63zPYsDDah Pp7vw7C8f473OYYnWSMnhG92 Uz4lbYjwPXZpjOHSiC7ihvtul5 kgtpnyTjBcDWMtNSz1GJa7VGGf nZgeKmMuFHV1MmR1QZO2lTAk tF2hpEooixfljJ8oOvo+TWFsZT wvdGQ+HCMqLUW2pQoiBTcaRXZm mX9yUYTtC6w5UjQnDyZ6DPdj U9UlXSRbaqriNl92lA9lQnNiCj W9KAcdD4RhozB4WNTknMAaXKof QXM1X53hl5B9YZRxBRGjYDG8 gYT8dE1lgIlbknbijDXkiWagaz YyjTykKJbtQInfW999GYOhxRjy Qi42mKLqwLupoyX0P8AwTeqa dHI+VR80QSKaWV96aWLtnCYvk6 gjqWh7TyVkIKNhYAM0hCheXXeq t6EdZOAeO26yeBTfw1O8CRDe pAsnlHNwHzDouSO7yW6uRXllrf gfs5wjalhvQorjf4ogks58yT55 N62rHCoyYBEkNATlDIAmAPVy vSgvoe8elF2zAb6+AHBjmJK4uK U9gX6wNeCxXmB7DGioK182UzAz wVOpUbbdp1zuf3lhaBj6XbNu SHVuclAozYjtOJI6m1KnQp88A7 9sIHdpZHRoPSIyMCUiIHZhbGln gj3hzK8cSu8+IR3fb2kxmr45 aN46wXB+EOBxKER8rQjtCOoyUJ IlqN9qPKajBiW4OOZcWuSlcL39 nDVhKZkeZh8tdGcovVmjSM7u CMQgwzrzn723PfIco7zqOSAemG QzHHljGDP2D41cv7Q7DZMcOKGx KDA6eNK7yL1veWhtuzvspOGp ySpzrjCwxVnsZLwbPXglC951KN BtgLaeAlObdKMhP4lerxLVBT5f OjwvdGQ+RBPvCHF7yArwZUfp MPQyvV4tUNTxZ8r0UqDyEhP9SW ukV0BjajM2IHJjdXLySCGdmTWK cF8tgdgsw7mjvexnIxTzHLPq MUq1AKj1SBBksLbcOnDkWQJ4Qp W1RWE8qEQycI9kxWkogsdqdI4h Oyc+RklOOjwvdGQ+PHRkIHN0 sChjCPfjWJCmtI1nKGUyK2c2Cn UfMrZ9VMlhK6TfmoF3DHAkvOPk FARpcIXKaP2vnzddw2aloaxf DoQlPVIzWXn5XFy7VHLrhDiuMq LkTYM7KxG4GJF7oMYuxW6xqEms mpgixL4rHir+TVJOOjwvdGQ+ DLFmQBG7yTqmVPeePTPxeI1pNL XsK7w2MgEoCkC9TDhbA6AjcwM3 MJTryLQpORIknTFUrP6jbryf b7dkhvoqSnXsJXUaXDx7RGu5EI QfbJlnOgJnIWP9FoA6JRV4vJYt bY9fcJkerxktwX6lGqz+UGF5 EDP5MV13KT98G9QuEixycAScnU U+PHRhYmxlIHdpZHRoPScxMDAl RaRiyCxeRT2oWg3hLSZdTAYo bGxhcHNl (more content not included)... Normal [facility] Consultation Noteon 09-21-19 Consultation Note [id number]#1.00CD:127 Normal [facility] Lab Reportson 09-20-2022 Lab Reports [id number]#1.00CD:127 Normal [facility] RAD - Ultrasound Reporton RAD - Ultrasound Report [id number]#1.00CD:127 Normal [facility] Outside Recordson 09-16-2022 Outside Records [id number]#1.00CD:127 Normal [facility] Auto Diffon 09-14-2022 Basophils/100 WBC (Bld) 0.5 % Normal 0.0-2.0 [facility] Comment on above: Order Comment: Order Added by Discern Expert. Performed By: #### 2 [id number], [id number], [id number], [id number], [id number] #### [facility] [address] [place] [address] Basophils/Leukocytes Auto (Bld) [Pure # fraction] 0.0 E9/L Normal 0.0-0.2 [facility] Comment on above: Order Comment: Order Added by Discern Expert. Performed By: #### 2 [id number], [id number], 2171003, [id number], 8856021 #### [facility] [address] [place] [address] Eosinophils/100 WBC (Bld) 3.2 % Normal 0.0-8.0 [facility] Comment on above: Order Comment: Order Added by Discern Expert. Performed By: #### 2 894546, [id number], 2498975, 60107255, [id number] #### [facility] [address] [place] [address] Eosinophils/Leukocytes Auto (Bld) [Pure # fraction] 0.2 E9/L Normal 0.0-0.5 [facility] Comment on above: Order Comment: Order Added by Discern Expert. Performed By: #### 2 436915, 25059608, 5388995, [id number], [id number] #### [facility] [address] [place] [address] Lymphocytes/100 WBC (Bld) 17.6 % Normal 14.0-50.0 [facility] Comment on above: Order Comment: Order Added by Discern Expert. Performed By: #### 2 358204, [id number], 2322319, 99162585, 9387379 #### [facility] [address] [place] [address] Lymphocytes/Leukocytes Auto (Bld) [Pure # fraction] 0.9 E9/L Low 1.0-4.0 [facility] Comment on above: Order Comment: Order Added by Discern Expert. Performed By: #### 2 451995, [id number], 2874871, 70036867, 4465840 #### [facility] [address] [place] [address] Monocytes/100 WBC (Bld) 10.2 % Normal 4.0-14.0 [facility] Comment on above: Order Comment: Order Added by Discern Expert. Performed By: #### 2 107125, [id number], 1184024, 54113519, 3385604 #### [facility] [address] [place] [address] Monocytes/Leukocytes Auto (Bld) [Pure # fraction] 0.5 E9/L Normal 0.2-1.0 [facility] Comment on above: Order Comment: Order Added by Discern Expert. Performed By: #### 2 687818, [id number], 5545895, 89222438, 4919821 #### [facility] [address] [place] [address] Neutrophils/100 WBC (Bld) 68.5 % Normal 36.0-75.0 [facility] Comment on above: Order Comment: Order Added by Discern Expert. Performed By: #### 2 945632, 40213354, 9692298, 35510116, 2090107 #### [facility] [address] [place] [address] Neutrophils/Leukocytes Auto (Bld) [Pure # fraction] 3.6 E9/L Normal 2.0-7.5 [facility] Comment on above: Order Comment: Order Added by Discern Expert. Performed By: #### 2 850954, 30744889, 0558933, 53731217, 1251206 #### [facility] [address] [place] [address] BMPon 09-14-2022 Anion gap [Moles/Vol] 10 mmol/L Normal 6-16 [facility] Comment on above: Performed By: #### 2 027142, [id number], 6385087, 56710349, 0947465 #### [facility] [address] [place] [address] Calcium [Mass/Vol] 8.6 mg/dL Low 8.9-11.1 [facility] Comment on above: Performed By: #### 2 822934, 01639927, 9527567, 86655515, 9389921 #### [facility] [address] [place] [address] Chloride [Moles/Vol] 108 mmol/L Normal 101-111 [facility] Comment on above: Performed By: #### 2 452624, 39559914, 4783043, 54578916, 2331325 #### [facility] [address] [place] [address] CO2 [Moles/Vol] 23 mmol/L Normal 21-31 [facility] Comment on above: Performed By: #### 2 702053, 46654794, 6993590, 07410044, 9772846 #### [facility] [address] [place] [address] Creatinine [Mass/Vol] 2.1 mg/dL High 0.5-1.3 [facility] Comment on above: Performed By: #### 2 180562, 03070053, 8683030, 60924661, 7546663 #### [facility] [address] [place] [address] Glucose [Mass/Vol] 89 mg/dL Normal 55-199 [facility] Comment on above: Result Comment: If t his glucose result represents a fasting glucose, interpretation should refer to the following reference range: 55-99 mg/dL Performed By: #### 2 643674, 34385876, 8418893, 94092684, 8756855 #### [facility] [address] [place] [address] Potassium [Moles/Vol] 4.1 mmol/L Normal 3.5-5.3 [facility] Comment on above: Performed By: #### 2 267029, 89446933, 1851456, 48204960, 9320218 #### [facility] [address] [place] [address] Sodium [Moles/Vol] 137 mmol/L Normal 135-145 [facility] Comment on above: Performed By: #### 2 302745, 56960433, 8969900, 46539052, 2371784 #### [facility] [address] [place] [address] Urea nitrogen [Mass/Vol] 26 mg/dL High 5-21 [facility] Comment on above: Performed By: #### 2 529711, 87798616, 3856925, 26646258, 1759058 #### [facility] [address] [id number] Urea nitrogen/Creatinine [Mass ratio] 12 No Units Normal 10-20 [facility] Comment on above: Performed By: #### 2 314255, 05052767, 9633889, 69852883, 0200882 #### [facility] [address] [id number] CBC w/ Auto Diffon 3 Erythrocyte distribution width (RBC) [Ratio] 14.0 % Normal 10.9-14.2 [facility] Comment on above: Performed By: #### 2 442000, 56570266, 5099224, 89790355, 9063314 #### [facility] [address] [place], [place] [id number] Hematocrit (Bld) [Volume fraction] 31.6 % Low 37.7-49.0 [facility] Comment on above: Performed By: #### 2 705760, 12572313, 6616105, 14003627, 6838896 #### [facility] [address] [id number] Hemoglobin (Bld) [Mass/Vol] 10.9 g/dL Low 13.5-17.5 [facility] Comment on above: Performed By: #### 2 005272, 98997195, 0768894, 71580324, 1051829 #### [facility] [address] [place] [address] MCH (RBC) [Entitic mass] 33.0 pg Normal 27.0-34.0 [facility] Comment on above: Performed By: #### 2 213347, 42281717, 9160114, 40576515, 4419563 #### [facility] [address] [place] [address] MCHC (RBC) [Mass/Vol] 34.5 g/dL Normal 31.4-36.0 [facility] Comment on above: Performed By: #### 2 975165, 42678813, 5436272, 33055616, 7233921 #### [facility] [address] [place] [address] MCV (RBC) [Entitic vol] 95.8 fL Normal 80.0-100.0 [facility] Comment on above: Performed By: #### 2 910480, 29087927, 5724015, 52442796, 1982126 #### [facility] [address] [place] [address] Platelet mean volume (Bld) [Entitic vol] 8.9 fL Normal 6.4-10.8 [facility] Comment on above: Performed By: #### 2 349181, 19159160, 7556955, 16992510, 4231972 #### [facility] [address] [place] [address] Platelets (Bld) [#/Vol] 151.0 E9/L Normal 150.0-500. 0 [facility] Comment on above: Performed By: #### 2 343869, 12357526, 6428559, 44377090, 9585529 #### [facility] [address] [place] [address] RBC (Bld) [#/Vol] 3.3 E12/L Low 4.3-5.9 [facility] Comment on above: Performed By: #### 2 770968, 81165353, 1291040, 77158315, 1271392 #### [facility] [address] [place] [address] WBC corrected for nucl RBC Auto (Bld) [#/Vol] 5.3 E9/L Normal 4.0-11.0 [facility] Comment on above: Performed By: #### 2 274466, 71101705, 8340910, 21154801, 5916014 #### [facility] [address] [place] [address] Consent for Treatmenton 08-26 Consent for Treatment [id number]:127 Normal [facility] PT & PTTon 09-14-2022 aPTT Coag (PPP) [Time] 29.7 second(s) Normal 25.1-36.5 [facility] Comment on above: Result Comment: Para meter [...] the same coagulation reagent and instrumentation as [facility]. Currently there are no coagulation studies available worldwide for children to 14 days, and no normal ranges. Heparin therapeutic range (represented by Anti-Factor Xa activity of 0.2 - 0.4 U/mL) corresponds to PTT of 56.6 - 109.0 sec. Performed By: #### 2 255047, 56111438, 8357528, 73497442, 1961600 #### [facility] [address] [place] [address] INR Coag (PPP) [Relative time] 1.0 {INR} Invalid Interpretation Code [facility] Comment on above: Result Comment: INR results are specifically intended to assess patients stabilized on long-term Anticoagulation therapy suggested INR?s ?Less Intensive Anticoagulation? 2.0 ? 3.0 Conventional Range 3.0 ? 4.5 Performed By: #### 2 591781, 49408136, 2121346, 23986714, 7867825 #### [facility] [address] [place] [address] PT Coag (PPP) [Time] 11.7 second(s) Normal 9.4-12.5 [facility] Comment on above: Result Comment: 15 d ays - 4 weeks 1 - 5 months 6 -11 months 1- 5 years 6-10 years 11 -17 years Mean: 11.2 (9.5-12.6) Mean: 11.0 (9.7-12.8) Mean: 11.0 (9.8-13.0) Mean: 11.3 (9.9-13.4) Mean: 11.7 (10.0-14.6) Mean: 11.8 (10.0 - 14.1) Pediatric Reference ranges were obtained from a study by Jaden Hutchnison et al. prepared from 1437 samples obtained at 7 different centers using the same coagulation reagent and instrumentation as [facility]. Currently there are no coagulation studies available worldwide for children to 14 days, and no normal ranges. Performed By: #### 2 367346, 27784008, 0885040, 40246889, 9306462 #### [facility] [address] [place] [address] PTH INTACTon 09-14-2022 PTH, Intact 51 pg/mL Normal 15-65 [facility] Comment on above: Performed By: #### T SH, LIPID, T4, FT3, CMP #### [facility] [address] [place], [place] [address] Dr. Alicia Patel UA With Cult Reflexon 2022 Bacteria LM Ql (Urine sed) TRACE Normal Trace [facility] Comment on above: Performed By: #### 2 268082, 06777855, 3939433, 10179310, 6900348 #### [facility] [address] [place] [address] Bilirubin Ql (U) Negative Normal Negative [facility] Comment on above: Performed By: #### 2 082962, 70235673, 4864196, 59019313, 0096844 #### [facility] [address] [place] [address] Clarity (U) CLOUDY Abnormal Clear [facility] Comment on above: Performed By: #### 2 023991, 82470060, 2552178, 60123770, 1459748 #### [facility] [address] [place] [address] Color (U) YELLOW Normal Yellow [facility] Comment on above: Performed By: #### 2 827952, 68232252, 2769300, 61423776, 3921256 #### [facility] [address] [place] [address] Epithelial cells.squamous LM.HPF (Urine sed) [#/Area] 0-2 Normal 0-2 [facility] Comment on above: Performed By: #### 2 412151, 98013184, 9319279, 18398946, 9538874 #### [facility] [address] [id number] Glucose Test strip (U) [Mass/Vol] Negative Normal Negative [facility] Comment on above: Performed By: #### 2 470716, 30587990, 4279832, 99625301, 8345480 #### [facility] [address] [place] [address] Hemoglobin Ql (U) 3+ Abnormal Negative [facility] Comment on above: Performed By: #### 2 482273, 05003391, 7950929, 48882318, 4185285 #### [facility] [address] [place] [address] Ketones (U) [Mass/Vol] Negative Normal Negative [facility] Comment on above: Performed By: #### 2 122274, 39676268, 9490631, 14729787, 9718281 #### [facility] [address] [place] [address] [place].plasma/[place] .RBC (Bld) [Mass ratio] >30 Abnormal 0-3 [facility] Comment on above: Performed By: #### 2 301199, 11351942, 2385484, 05239291, 5605729 #### [facility] [address] [place] [address] Mucus Ql (Urine sed) TRACE Normal [facility] Comment on above: Performed By: #### 2 982388, 97396900, 1398669, 47604546, 7270766 #### [facility] [address] [place] [address] Nitrite Ql (U) Negative Normal Negative [facility] Comment on above: Performed By: #### 2 484023, 03423912, 5770695, 69118902, 7698606 #### [facility] [address] [place] [address] pH (U) 6.0 [pH] Invalid Interpretation Code 5.0-9.0 [facility] Comment on above: Performed By: #### 2 116348, 82621397, 9853807, 43930153, 4733379 #### [facility] [address] [place] [address] Protein (U) [Mass/Vol] 2+ Abnormal Negative Fi [facility] Comment on above: Performed By: #### 2 039292, 90603477, 8856227, 73530956, 2319015 #### [facility] [address] [place] [address] Specific gravity (U) [Rel density] 1.025 Invalid Interpretation Code 1.005-1.03 0 [facility] Comment on above: Performed By: #### 2 326473, 01275338, 2015420, 85461952, 4647732 #### [facility] [address] [place] [address] Type of Urine collection method Clean Catch Normal [facility] Comment on above: Performed By: #### 2 751281, 97042906, 5131367, 66601754, 6479620 #### [facility] [address] [place] [address] Urobilinogen Qn (U) 0.2 {Wil'U}/dL Normal 0.0-1.0 [facility] Comment on above: Performed By: #### 2 332905, 35054392, 7044287, 02656635, 0952110 #### [facility] [address] [place] [address] WBC Auto Ql (U) TRACE Abnormal Negative [facility] Comment on above: Performed By: #### 2 511267, 65883490, 9427115, 85735127, 5195788 #### [facility] [address] [place] [address] WBC casts LM.LPF (Urine sed) [#/Area] 0-3 Normal [facility] Comment on above: Performed By: #### 2 673401, 98949527, 0206619, 09565060, 1100668 #### [facility] [address] [place] [address] WBC LM.HPF (Urine sed) [#/Area] 0-5 Normal 0-5 [facility] Comment on above: Performed By: #### 2 532531, 61689911, 8619804, 87721958, 2729085 #### [facility] [address] [place] [address] XR Chest 2 Viewson 3 XR Chest [...] mGy = na DAP = na Normal [facility] eGFRon 09-14-2022 GFR/1.73 sq M.predicted among blacks MDRD (S/P/Bld) [Vol rate/Area] 37 mL/min/1.73 m2 Low >=59 [facility] Comment on above: Order Comment: Order added by Discern Expert. Result Comment: eGFR is race adjusted. AA=. Performed By: #### 2 427405, 05390846, 0259231, 94738746, 5830811 #### [facility] [address] [place] [address] GFR/1.73 sq M.predicted among non-blacks MDRD (S/P/Bld) [Vol rate/Area] 31 mL/min/1.73 m2 Low >=59 [facility] Comment on above: Order Comment: Order added by Discern Expert. Result Comment: Credentialing Coordinator christa kidney disease could be indicated at eGFR's of less than 60 mL/min/1.73m2. Kidney failure is indicated at less than 15 mL/min/1.73m2. Performed By: #### 2 712276, 26783887, 2422657, 57705486, 7765465 #### [facility] [address] [place] [address] HEMOGRAM AND PLATELon 2022 Hematocrit (Bld) [Volume fraction] 32.9 % Critically low 42.0-54.0 [facility] Comment on above: Performed By: #### T SH, LIPID, T4, FT3, CMP #### [facility] [address] [place] [address] Dr. Alicia Patel Hemoglobin (Bld) [Mass/Vol] 10.9 g/dL Critically low 14.0-18.0 [facility] Comment on above: Performed By: #### T SH, LIPID, T4, FT3, CMP #### [facility] [address] [place] [address] Dr. Alicia Patel MCH (RBC) [Entitic mass] 32.6 pg Normal 25.9-34.0 [facility] Comment on above: Performed By: #### T SH, LIPID, T4, FT3, CMP #### [facility] [address] [place] [address] Dr. Alicia Patel MCHC (RBC) [Mass/Vol] 33.1 g/dL Normal 29.9-35.2 [facility] Comment on above: Performed By: #### T SH, LIPID, T4, FT3, CMP #### [facility] [address] [place] [address] Dr. Alicia Patel MCV (RBC) [Entitic vol] 98.5 fL Critically high 80.0-94.0 [facility] Comment on above: Performed By: #### T SH, LIPID, T4, FT3, CMP #### [facility] [address] [place] [address] Dr. Alicia Patel PLT 145 103/ul Critically low 150-450 [facility] Comment on above: Performed By: #### T SH, LIPID, T4, FT3, CMP #### [facility] [address] [place] [address] Dr. Alicia Patel RBC 3.34 106/ul Critically low 4.70-6.10 [facility] Comment on above: Performed By: #### T SH, LIPID, T4, FT3, CMP #### [facility] [address] [place] [address] Dr. Alicia Patel WBC 5.1 103/ul Normal 4.0-11.0 [facility] Comment on above: Performed By: #### T SH, LIPID, T4, FT3, CMP #### [facility] [address] [place] [address] Dr. Alicia Patel MAGNESIUMon 09-13-2022 Magnesium [Mass/Vol] 1.5 mg/dL Critically low 1.8-2.4 [facility] Comment on above: Performed By: #### T SH, LIPID, T4, FT3, CMP #### [facility] [address] [place] [address] Dr. Alicia Patel RENAL FUNCTION PANELon 09-13 Albumin [Mass/Vol] 3.5 g/dL Normal 3.4-5.0 [facility] Comment on above: Performed By: #### U RTPCR #### [facility] [address] [place] [address] Dr. Alicia Patel Calcium [Mass/Vol] 8.4 mg/dL Critically low 8.5-10.1 [facility] Comment on above: Performed By: #### U RTPCR #### [facility] [address] [address] [address] Alicia Patel Chloride [Moles/Vol] 107 mmol/L Normal 98-107 [facility] Comment on above: Performed By: #### U RTPCR #### [facility] [address] [address] [address] Alicia Patel CO2 [Moles/Vol] 25.1 mmol/L Normal 21.0-32.0 [facility] Comment on above: Performed By: #### U RTPCR #### [facility] [address] [address] [address] Alicia Patel Creatinine [Mass/Vol] 1.96 mg/dL Critically high 0.70-1.30 [facility] Comment on above: Performed By: #### U RTPCR #### [facility] [address] [place] [address] Dr. Alicia Patel EGFR-AF SALV[place]OREAN 40 mL/min/1.73m2 Critically low >=60 [facility] Comment on above: Performed By: #### U RTPCR #### [facility] [address] [place] [address] Dr. Alicia Patel EGFR-NON AF [place] 33 mL/min/1.73m2 Critically low >=60 [facility] Comment on above: Performed By: #### U RTPCR #### [facility] [address] [place] [address] Dr. Alicia Patel Glucose [Mass/Vol] 151 mg/dL Critically high 74-106 [facility] Comment on above: Performed By: #### U RTPCR #### [facility] [address] [address] [address] Alicia Patel Phosphate [Mass/Vol] 3.5 mg/dL Normal 2.6-4.7 [facility] Comment on above: Performed By: #### U RTPCR #### [facility] [address] [address] [address] Alicia Patel Potassium [Moles/Vol] 4.3 mmol/L Normal 3.5-5.1 [facility] Comment on above: Performed By: #### U RTPCR #### [facility] [address] [place] [address] Dr. Alicia Patel Sodium [Moles/Vol] 142 mmol/L Normal 136-145 [facility] Comment on above: Performed By: #### U RTPCR #### [facility] [address] [place] [address] Dr. Alicia Patel Urea nitrogen [Mass/Vol] 23.0 mg/dL Critically high 7.0-18.0 [facility] Comment on above: Performed By: #### U RTPCR #### [facility] [address] [place] [address] Dr. Alicia Patel UA RANDOM W/MICROSCOPICon BACTERIA TRACE Abnormal NONE SEEN [facility] Comment on above: Performed By: #### T SH, LIPID, T4, FT3, CMP #### [facility] [address] [place] [address] Dr. Alicia Patel Bilirubin Ql (U) Negative Normal NEGATIVE [facility] Comment on above: Performed By: #### T SH, LIPID, T4, FT3, CMP #### [facility] [address] [place] [address] Dr. lAicia Patel CAST NONE SEEN Normal NONE SEEN [facility] Comment on above: Performed By: #### T SH, LIPID, T4, FT3, CMP #### [facility] [address] [place] [address] Dr. Alicia Patel Clarity (U) CLEAR Normal CLEAR [facility] Comment on above: Performed By: #### T SH, LIPID, T4, FT3, CMP #### [facility] [address] [place] [address] Dr. Alicia Patel Color (U) LT. YELLOW Normal YELLOW [facility] Comment on above: Performed By: #### T SH, LIPID, T4, FT3, CMP #### [facility] [address] [place] [address] Dr. Alicia Patel Crystals LM Nom (Urine sed) NONE SEEN Normal NONE SEEN [facility] Comment on above: Performed By: #### T SH, LIPID, T4, FT3, CMP #### [facility] [address] [address] [address] Alicia Patel Epithelial cells LM Ql (Urine sed) RARE Normal NONE SEEN /RARE [facility] Comment on above: Performed By: #### T SH, LIPID, T4, FT3, CMP #### [facility] [address] [address] [address] Alicia Patel Glucose Ql (U) 500 mg/dl Abnormal NEGATIVE [facility] Comment on above: Performed By: #### T SH, LIPID, T4, FT3, CMP #### [facility] [address] [address] [address] Alicia Patel Hemoglobin Ql (U) LARGE Abnormal NEGATIVE [facility] Comment on above: Performed By: #### T SH, LIPID, T4, FT3, CMP #### [facility] [address] [place] [address] Dr. Alicia Patel Ketones Ql (U) Negative Normal NEGATIVE [facility] Comment on above: Performed By: #### T SH, LIPID, T4, FT3, CMP #### [facility] [address] [place] [address] Dr. Alicia Patel LEUKOCYTES Negative Normal NEGATIVE [facility] Comment on above: Performed By: #### T SH, LIPID, T4, FT3, CMP #### [facility] [address] [address] [address] Alicia Patel MUCOUS NONE SEEN Normal NONE SEEN [facility] Comment on above: Performed By: #### T SH, LIPID, T4, FT3, CMP #### [facility] [address] [address] [address] Alicia Patel Nitrite Ql (U) Negative Normal NEGATIVE [facility] Comment on above: Performed By: #### T SH, LIPID, T4, FT3, CMP #### [facility] [address] [address] [address] Alicia Patel pH (U) 6.0 [pH] Normal 5-9 [facility] Comment on above: Performed By: #### T SH, LIPID, T4, FT3, CMP #### [facility] [address] [place] [address] Dr. Alicia Patel RBC 20-50 Abnormal 0-2 [facility] Comment on above: Performed By: #### T SH, LIPID, T4, FT3, CMP #### [facility] [address] [place] [address] Dr. Alicia Patel SPEC GRAVITY 1.020 Normal 1.005-<=1. 025 [facility] Comment on above: Performed By: #### T SH, LIPID, T4, FT3, CMP #### [facility] [address] [place] [address] Dr. Alicia Patel UA PROTEIN 100 mg/dl Abnormal NEGATIVE/ TRACE [facility] Comment on above: Performed By: #### T SH, LIPID, T4, FT3, CMP #### [facility] [address] [place] [address] Dr. Alicia Patel Urobilinogen Qn (U) 0.2 {Wil'U}/dL Normal 0.2 - 1. 0 [facility] Comment on above: Performed By: #### T SH, LIPID, T4, FT3, CMP #### [facility] [address] [place] [address] Dr. Alicia Patel WBC 0-2 Abnormal NONE SEEN [facility] Comment on above: Performed By: #### T SH, LIPID, T4, FT3, CMP #### [facility] [address] [place] [address] Dr. Alicia Patel URIC ACID SERUMon 09-13-2022 Urate [Mass/Vol] 5.8 mg/dL Normal 3.5-7.2 [facility] Comment on above: Performed By: #### U RTPCR #### [facility] [address] [place] [address] Dr. Alicia Patel URINE T PROTEIN CREAT RATIOo n 09-13-2022 Protein (U) [Mass/Vol] 122.4 mg/dL Critically high <=12.0 [facility] Comment on above: Performed By: #### U RTPCR #### [facility] [address] [place] [address] Dr. Alicia Patel UR PROT CREAT RAT 1.38 Normal [facility] Comment on above: Performed By: #### U RTPCR #### [facility] [address] [address] [address] Alicia Patel URINE CREAT 88.74 mg/dL Normal 20.00-300. 00 [facility] Comment on above: Performed By: #### U RTPCR #### [facility] [address] [address] [address] Alicia Patel VITAMIN D 25 OHon 09-13-2022 VIT D 25-OH 58.0 ng/mL Normal [facility] Comment on above: Performed By: #### T SH, LIPID, T4, FT3, CMP #### [facility] [address] [place] [address] Dr. Alicia Patel VIT D RANGES SEE BELOW Normal [facility] Comment on above: Result Comment: <20 ng/mL Vit D deficient 20 - <30 ng/mL Vit D insufficient 30 - 100 ng/mL Vit D sufficient >100 ng/mL Potential Toxicity Performed By: #### T SH, LIPID, T4, FT3, CMP #### [facility] [address] [place] [address] Dr. Alicia Patel Pre-Certification Formon Pre-Certification Form [id number]:127 Normal [facility] RAD - Ultrasound Reporton RAD - Ultrasound Report [id number]:127 Normal [facility] Screenson 09-07-2022 Screens [id number]:12 7 Normal [facility] Patient Educationon 09-07-19 23 Patient Education Urology [...] these instructions at home: Medicines ? Take ehsr-lgi-jajuuhg and prescription medicines only as told by [...] 11/29/2008 Document Revised: 10/30/2019 Document Reviewed: 10/30/2019 [employer] Patient Education ? 2019 [employer]. Isamar Carrillo [facility] Urology Office/Clinic Noteon 09-06-2022 Urology Office/Clinic Note Chief Complaint Pt is here for [facility] ER f/u HPI Staff Victorino is a 82 y.o. male here for hospital follow up. Pt was seen at [facility]. Previous Dx: acute kidney failure, BPH w/ urinary obstruction, elevated PSA, ED, flank pain, hydronephrosis, kidney stone, prostate cancer, ureteral stone, urinary retention. S/P cysto/stent removal done on 04/15/20, cysto/bilateral dilation ureteral/stent done on 03/11/20, TURP done on 08/01/19, biopsy of prostate done on 07/04/19, cysto/RG/laser done on 06/27/19. Pt presented to [facility] on 08/11/22 for shortness of breath. Pt presented to [facility] later that evening on 08/11/22 for abdominal [...] the prior CT scan performed at the [facility]. The options include both nephroscopic/ureteroscopic approach with [...] off asp (more content not included)... Normal [facility] Comment on above: Result Comment: Elec tronically [...] TYLER MONSIVAIS Date: 2022-09-01 09:33 Normal [facility] CT chest wo con high reson 0 08-31-2022 CT chest wo con high res [facility] [place] [address] [place] [address] Scan Report Signed Patient: Victorino Smyth MR#: [id number] : 1940 Acct:[id number] Age/Sex: 82 / M ADM Date: 08/31/22 Loc: CT Room: Type: [facility] Attending Dr: Hiral Interiano MD Copies to: Hiral Interiano MD Ordering Provider: Hiral Interiano MD Date of Service: 08/31/22 CT/CT chest wo con high res: follow up left lower lung nodule CT CHEST WITHOUT IV CONTRAST: High-resolution protocol. CLINICAL HISTORY: Lung nodule seen on outside imaging. COMPARISON: CT abdomen and pelvis from [facility] 08/11/2022 TECHNIQUE: Spiral images were obtained through [...] Perez Jr., DManoharOManohar08/31/2022 3:25 PM Dictation Location: [place] [address] Transcribed By: [facility] 08/31/22 1525 Dictated By: Ifeanyi Perez Jr, DO 08/31/22 1520 Signed By: 08/31/22 1525 Normal [facility] PSA, FREE AND TOTAL RATIOon 08-25-2022 % Free PSA 13.7 % Normal [facility] Comment on above: Result Comment: The [...] T SH, LIPID, T4, FT3, CMP #### [facility] Laboratory [address] [place] [address] Dr. Alicia Patel Prostate specific Ag [Mass/Vol] 6.2 ng/mL Critically high 0.0-4.0 [facility] Comment on above: Result Comment: Dwight JUAREZ methodology. . According to the [employer], Serum PSA should decrease and [...] T SH, LIPID, T4, FT3, CMP #### [facility] [address] [address] [address] Alicia Patel PSA, Free 0.85 ng/mL Normal N/A [facility] Comment on above: Result Comment: Dwight linares ECLIA methodology. Performed By: #### T SH, LIPID, T4, FT3, CMP #### [facility] [address] [place] [address] Dr. Alicia DAVALOS BLD IMMUNO SCREENon 07-29 OCCULT BLOOD Negative Normal NEGATIVE [facility] Comment on above: Performed By: #### T SH, LIPID, T4, FT3, CMP #### [facility] [address] [place] [address] Dr. Alicia Patel CBC AUTO DIFFon 08-21-2022 BASO # 0.0 103/ul Normal 0.0-0.1 [facility] Comment on above: Performed By: #### U RTPCR #### [facility] [address] [place] [address] Dr. Alicia Patel Basophils/100 WBC (Bld) 0.3 % Normal 0.2-2.0 [facility] Comment on above: Performed By: #### U RTPCR #### [facility] [address] [place] [address] Dr. Alicia Patel EO # 0.2 103/ul Normal 0.0-0.7 [facility] Comment on above: Performed By: #### U RTPCR #### [facility] [address] [place] [address] Dr. Alicia Patel Eosinophils/100 WBC (Bld) 3.2 % Normal 0.9-7.0 [facility] Comment on above: Performed By: #### U RTPCR #### [facility] [address] [place] [address] Dr. Alicia Patel Erythrocyte distribution width (RBC) [Ratio] 12.9 % Normal 11.0-15.0 [facility] Comment on above: Performed By: #### U RTPCR #### [facility] [address] [place] [address] Dr. Alicia Patel Hematocrit (Bld) [Volume fraction] 35.4 % Critically low 42.0-54.0 [facility] Comment on above: Performed By: #### U RTPCR #### [facility] [address] [place] [address] Dr. Alicia Patel Hemoglobin (Bld) [Mass/Vol] 11.7 g/dL Critically low 14.0-18.0 [facility] Comment on above: Performed By: #### U RTPCR #### [facility] [address] [place] [address] Dr. Alicia Patel IG # 0.08 10e3/ul Critically high 0.00-0.03 [facility] Comment on above: Performed By: #### U RTPCR #### [facility] [address] [place] [address] Dr. Alicia Patel IG % 1.2 % Critically high 0.0-0.5 [facility] Comment on above: Performed By: #### U RTPCR #### [facility] [address] [place] [address] Dr. Alicia Patel LYMPH # 1.1 103/ul Critically low 1.2-3.8 [facility] Comment on above: Performed By: #### U RTPCR #### [facility] [address] [place] [address] Dr. Alicia Patel Lymphocytes/100 WBC (Bld) 16.6 % Critically low 20.5-60.0 [facility] Comment on above: Performed By: #### U RTPCR #### [facility] [address] [place] [address] Dr. Alicia Patel MANUAL DIFF REQ NO Normal [facility] Comment on above: Performed By: #### U RTPCR #### [facility] [address] [place] [address] Dr. Alicia Patel MCH (RBC) [Entitic mass] 32.4 pg Normal 25.9-34.0 [facility] Comment on above: Performed By: #### U RTPCR #### [facility] [address] [place] [address] Dr. Alicia Patel MCHC (RBC) [Mass/Vol] 33.1 g/dL Normal 29.9-35.2 [facility] Comment on above: Performed By: #### U RTPCR #### [facility] [address] [address] [address] Alicia Patel MCV (RBC) [Entitic vol] 98.1 fL Critically high 80.0-94.0 [facility] Comment on above: Performed By: #### U RTPCR #### [facility] [address] [place] [address] Dr. Alicia Patel MONO # 0.6 103/ul Normal 0.3-0.8 [facility] Comment on above: Performed By: #### U RTPCR #### [facility] [address] [place] [address] Dr. Alicia Patel Monocytes/100 WBC (Bld) 8.8 % Normal 1.7-12.0 [facility] Comment on above: Performed By: #### U RTPCR #### [facility] [address] [place] [address] Dr. Alicia Patel NEUT # 4.8 103/ul Normal 1.4-6.5 [facility] Comment on above: Performed By: #### U RTPCR #### [facility] [address] [place] [address] Dr. Alicia Patel Neutrophils/100 WBC (Bld) 69.9 % Normal 43.0-75.0 [facility] Comment on above: Performed By: #### U RTPCR #### [facility] [address] [place] [address] Dr. Alicia Patel Platelet mean volume (Bld) [Entitic vol] 10.4 fL Normal 9.5-13.5 [facility] Comment on above: Performed By: #### U RTPCR #### [facility] [address] [place] [address] Dr. Alicia Patel PLT 200 103/ul Normal 150-450 [facility] Comment on above: Performed By: #### U RTPCR #### [facility] [address] [place] [address] Dr. Alicia Patel RBC 3.61 106/ul Critically low 4.70-6.10 [facility] Comment on above: Performed By: #### U RTPCR #### [facility] [address] [address] [address] Alicia Patel WBC 6.8 103/ul Normal 4.0-11.0 [facility] Comment on above: Performed By: #### U RTPCR #### [facility] [address] [place] [address] Dr. Alicia Patel FREE T3on 08-21-2022 FREE T3 1.91 pg/mlL Critically low 2.18-3.98 [facility] Comment on above: Performed By: #### T SH, LIPID, T4, FT3, CMP #### [facility] [address] [place] [address] Dr. Alicia Patel GLYCOHEMOGLOBIN A1Con 2022 ADA RECOMMENDATION SEE BELOW Normal [facility] Comment on above: Result Comment: ADA RECOMMENDED LIMIT 4.0 - 6.0 ADA THERAPEUTIC TARGET < 7.0 ACTION SUGGESTED > 7.0 Performed By: #### T SH, LIPID, T4, FT3, CMP #### [facility] [address] [place] [address] Dr. Alicia Patel Glucose [Mass/Vol] 194 mg/dL Normal [facility] Comment on above: Performed By: #### T SH, LIPID, T4, FT3, CMP #### [facility] [address] [place] [address] Dr. Alicia Patel HbA1c (Bld) [Mass fraction] 8.4 % Critically high 4.5-6.2 [facility] Comment on above: Performed By: #### T SH, LIPID, T4, FT3, CMP #### [facility] [address] [place] [address] Dr. Alicia Patel LIPID PROFILEon 08-21-2022 CHOL-HDL RATIO NORM SEE BELOW Normal [facility] Comment on above: Result Comment: 3.3 - 4.4 LOW RISK 4.4 - 7.1 AVERAGE RISK 7.1 - 11.0 MODERATE RISK >11.0 HIGH RISK Performed By: #### T SH, LIPID, T4, FT3, CMP #### [facility] [address] [place] [address] Dr. Alicia Patel Cholesterol [Mass/Vol] 120 mg/dL Normal <=200 [facility] Comment on above: Performed By: #### T SH, LIPID, T4, FT3, CMP #### [facility] [address] [address] [address] Alicia Patel Cholesterol in HDL [Mass/Vol] 30 mg/dL Critically low 40-60 [facility] Comment on above: Performed By: #### T SH, LIPID, T4, FT3, CMP #### [facility] [address] [address] [address] Alicia Patel Cholesterol in LDL [Mass/Vol] 59.8 mg/dL Normal [facility] Comment on above: Performed By: #### T SH, LIPID, T4, FT3, CMP #### [facility] [address] [place] [address] Dr. Alicia Patel Cholesterol.total/Chol esterol in HDL [Mass ratio] 4.0 {ratio} Normal [facility] Comment on above: Performed By: #### T SH, LIPID, T4, FT3, CMP #### [facility] [address] [place] [address] Dr. Alicia Patel HDL NORMAL > or = 60 mg/dl - LO W CARDIOVASCULAR RISK <40 mg/dl - HIGH CARDIOVASCULAR RISK Normal [facility] Comment on above: Performed By: #### T SH, LIPID, T4, FT3, CMP #### [facility] [address] [place] [address] Dr. Alicia Patel LDL CALC NORMAL SEE BELOW Normal [facility] Comment on above: Result Comment: <100 mg/dl OPTIMAL 100 - 129 mg/dl NEAR OR ABOVE OPTIMAL 130 - 159 mg/dl BORDERLINE HIGH 160 - 189 mg/dl HIGH >190 mg/dl VERY HIGH Performed By: #### T SH, LIPID, T4, FT3, CMP #### [facility] [address] [place] [address] Dr. Alicia Patel Triglyceride [Mass/Vol] 151 mg/dL Critically high <=150 [facility] Comment on above: Performed By: #### T SH, LIPID, T4, FT3, CMP #### [facility] [address] [address] [address] Alicia Patel VLDL CALC 30.2 mg/dL Normal [facility] Comment on above: Performed By: #### T SH, LIPID, T4, FT3, CMP #### [facility] [address] [place] [address] Dr. Alicia Patel PROF 14(COMP METB)on 023 Albumin [Mass/Vol] 3.3 g/dL Critically low 3.4-5.0 [facility] Comment on above: Performed By: #### T SH, LIPID, T4, FT3, CMP #### [facility] [address] [place] [address] Dr. Alicia Patel Albumin/Globulin [Mass ratio] 0.9 {ratio} Normal [facility] Comment on above: Performed By: #### T SH, LIPID, T4, FT3, CMP #### [facility] [address] [place] [address] Dr. Alicia Patel ALP [Catalytic activity/Vol] 79 U/L Normal 46-116 [facility] Comment on above: Performed By: #### T SH, LIPID, T4, FT3, CMP #### [facility] [address] [address] [address] Alicia Patel ALT [Catalytic activity/Vol] 61 U/L Normal 16-63 [facility] Comment on above: Performed By: #### T SH, LIPID, T4, FT3, CMP #### [facility] [address] [address] [address] Alicia Patel Anion gap [Moles/Vol] 12.6 mmol/L Normal [facility] Comment on above: Performed By: #### T SH, LIPID, T4, FT3, CMP #### [facility] [address] [place] [address] Dr. Alicia Patel AST [Catalytic activity/Vol] 39 U/L Critically high 15-37 [facility] Comment on above: Performed By: #### T SH, LIPID, T4, FT3, CMP #### [facility] [address] [place] [address] Dr. Alicia Patel Bilirubin [Mass/Vol] 0.7 mg/dL Normal 0.2-1.0 [facility] Comment on above: Performed By: #### T SH, LIPID, T4, FT3, CMP #### [facility] [address] [place] [address] Dr. Alicia Patel Calcium [Mass/Vol] 8.9 mg/dL Normal 8.5-10.1 [facility] Comment on above: Performed By: #### T SH, LIPID, T4, FT3, CMP #### [facility] [address] [place] [address] Dr. Alicia Patel Chloride [Moles/Vol] 111 mmol/L Critically high 98-107 [facility] Comment on above: Performed By: #### T SH, LIPID, T4, FT3, CMP #### [facility] [address] [place] [address] Dr. Alicia Patel CO2 [Moles/Vol] 24.0 mmol/L Normal 21.0-32.0 [facility] Comment on above: Performed By: #### T SH, LIPID, T4, FT3, CMP #### [facility] [address] [place] [address] Dr. Alicia Patel Creatinine [Mass/Vol] 1.80 mg/dL Critically high 0.70-1.30 [facility] Comment on above: Performed By: #### T SH, LIPID, T4, FT3, CMP #### [facility] [address] [place] [address] Dr. Alicia Patel EGFR-AF SALVADOREAN 44 mL/min/1.73m2 Critically low >=60 [facility] Comment on above: Performed By: #### T SH, LIPID, T4, FT3, CMP #### [facility] [address] [place] [address] Dr. Alicia Patel EGFR-NON AF SALVADOREAN 36 mL/min/1.73m2 Critically low >=60 [facility] Comment on above: Performed By: #### T SH, LIPID, T4, FT3, CMP #### [facility] [address] [place] [address] Dr. Alicia Patel Globulin (S) [Mass/Vol] 3.5 g/dL Normal [facility] Comment on above: Performed By: #### T SH, LIPID, T4, FT3, CMP #### [facility] [address] [address] [address] Alicia Patel Glucose [Mass/Vol] 118 mg/dL Critically high 74-106 [facility] Comment on above: Performed By: #### T SH, LIPID, T4, FT3, CMP #### [facility] [address] [address] [address] Alicia Patel Potassium [Moles/Vol] 4.6 mmol/L Normal 3.5-5.1 [facility] Comment on above: Performed By: #### T SH, LIPID, T4, FT3, CMP #### [facility] [address] [place] [address] Dr. Alicia Patel Protein [Mass/Vol] 6.8 g/dL Normal 6.4-8.2 [facility] Comment on above: Performed By: #### T SH, LIPID, T4, FT3, CMP #### [facility] [address] [place] [address] Dr. Alicia Patel Sodium [Moles/Vol] 143 mmol/L Normal 136-145 [facility] Comment on above: Performed By: #### T SH, LIPID, T4, FT3, CMP #### [facility] [address] [place] [address] Dr. Alicia Patel Urea nitrogen [Mass/Vol] 31.0 mg/dL Critically high 7.0-18.0 [facility] Comment on above: Performed By: #### T SH, LIPID, T4, FT3, CMP #### [facility] [address] [place] [address] Dr. Alicia Patel Urea nitrogen/Creatinine [Mass ratio] 17.2 mg/mg Normal [facility] Comment on above: Performed By: #### T SH, LIPID, T4, FT3, CMP #### [facility] [address] [place] [address] Dr. Alicia Patel T4on 08-21-2022 T4 [Mass/Vol] 7.70 ug/dL Normal 4.50-12.10 [facility] Comment on above: Performed By: #### T SH, LIPID, T4, FT3, CMP #### [facility] [address] [place] [address] Dr. Alicia Patel TSHon 08-21-2022 TSH 1.138 uIU/mL Normal 0.358-3.74 0 [facility] Comment on above: Performed By: #### T SH, LIPID, T4, FT3, CMP #### [facility] [address] [place] [address] Dr. Alicia Patel RENAL FUNCTION PANELon 08-18 Albumin [Mass/Vol] 3.3 g/dL Critically low 3.4-5.0 [facility] Comment on above: Performed By: #### U RTPCR #### [facility] [address] [place] [address] Dr. Alicia Patel Calcium [Mass/Vol] 8.3 mg/dL Critically low 8.5-10.1 [facility] Comment on above: Performed By: #### U RTPCR #### [facility] [address] [place] [address] Dr. Alicia Patel Chloride [Moles/Vol] 109 mmol/L Critically high 98-107 [facility] Comment on above: Performed By: #### U RTPCR #### [facility] [address] [place] [address] Dr. Alicia Patel CO2 [Moles/Vol] 22.1 mmol/L Normal 21.0-32.0 [facility] Comment on above: Performed By: #### U RTPCR #### [facility] [address] [place] [address] Dr. Alicia Patel Creatinine [Mass/Vol] 2.14 mg/dL Critically high 0.70-1.30 [facility] Comment on above: Performed By: #### U RTPCR #### [facility] [address] [place] [address] Dr. Alicia Patel EGFR-AF SALVADOREAN 36 mL/min/1.73m2 Critically low >=60 [facility] Comment on above: Performed By: #### U RTPCR #### [facility] [address] [address] [address] Alicia Patel EGFR-NON AF SALVADOREAN 30 mL/min/1.73m2 Critically low >=60 [facility] Comment on above: Performed By: #### U RTPCR #### [facility] [address] [address] [address] Alicia Patel Glucose [Mass/Vol] 102 mg/dL Normal 74-106 [facility] Comment on above: Performed By: #### U RTPCR #### [facility] [address] [address] [address] Alicia Patel Phosphate [Mass/Vol] 3.1 mg/dL Normal 2.6-4.7 [facility] Comment on above: Performed By: #### U RTPCR #### [facility] [address] [address] [address] Alicia Patel Potassium [Moles/Vol] 3.9 mmol/L Normal 3.5-5.1 [facility] Comment on above: Performed By: #### U RTPCR #### [facility] [address] [address] [address] Alicia Patel Sodium [Moles/Vol] 141 mmol/L Normal 136-145 [facility] Comment on above: Performed By: #### U RTPCR #### [facility] [address] [address] [address] Alicia Patel Urea nitrogen [Mass/Vol] 41.0 mg/dL Critically high 7.0-18.0 [facility] Comment on above: Performed By: #### U RTPCR #### [facility] [address] [address] [address] Alicia Patel ED Note-Physicianon 08-17-19 ED Note-Physician [id number]#1.00CD:127 Normal [facility] RAD - CT Reporton 08-17-2022 RAD - CT Report [id number]#1.00CD:[address] [facility] RAD - MISCon 08-17-2022 RAD [facility] [id number]:127 [facility] MIS [id number]#1.00CD:[address] [facility] Insurance Correspondence Off iceon 08-16-2022 Insurance Correspondence Office [id number]#1.00CD:[address] [facility] Basic Metabolic Panelon 07-28 Creatinine Clr Calc Pharmacy [facility] Comment on above: Result Comment: PERF ORMED BY: [place] [address] PATHOLOGIST CONSTRUCTION MANAGEMENT ASSISTANT DIANDRA LACY M.D. Performed By: #### P T #### [address] Estimated GFR ( Yana 21 [facility] Comment on above: Result Comment: GFR estimated reference range: According to KDOQI guidelines, <60 ml/min/1.73m2 is sufficient to diagnose a patient with chronic kidney disease. Performed By: #### P T #### [address] Estimated GFR (Non- Am 17 [facility] Comment on above: Performed By: #### P T #### [address] Estimated glomerular filtrat ion rate (GFR) non- AmericanOrdered By: Hiral Interiano on 08-15-2022 GFR/1.73 sq M.predicted among non-blacks MDRD (S/P/Bld) [Vol rate/Area] 17 mL/Min [facility] Glucose Glucometer (BldC) [M ass/Vol]Ordered By: Hiral Interiano on 08-15-2022 Glucose [Mass/Vol] 135 mg/dL [facility] Comment on above: Random Glucose Refer ence Range is dependent on time and content of last meal. Glucose of more than 200 mg/dL in a nonstressed, ambulatory subject supports the diagnosis of Diabetes Mellitus. Glucose Poct Glucometerson 0 08-15-2022 Glucose [Mass/Vol] 135 mg/dL Normal [facility] Comment on above: Result Comment: Strawn om Glucose Reference Range is dependent on time and content of last meal. Glucose of more than 200 mg/dL in a nonstressed, ambulatory subject supports the diagnosis of Diabetes Mellitus. PERFORMED BY: [place] [address] PATHOLOGIST CONSTRUCTION MANAGEMENT ASSISTANT DIANDRA LACY M.D. Performed By: #### G LULS ####Point of Care testing, Glucose [Mass/Vol] 163 mg/dL Normal [facility] Comment on above: Result Comment: [facility] Glucose Reference Range is dependent on time and content of last meal. Glucose of more than 200 mg/dL in a nonstressed, ambulatory subject supports the diagnosis of Diabetes Mellitus. PERFORMED BY: [place] [address] PATHOLOGIST CONSTRUCTION MANAGEMENT ASSISTANT DIANDRA LACY M.D. Performed By: #### P T #### [facility] [address] [place] [address] No Panel InformationOrdered By: Hiral Interiano on 08-15-2022 Estimated GFR () 21 mL/Min [facility] Comment on above: GFR estimated refere nce range: According to KDOQI guidelines, <60 ml/min/1.73m2 is sufficient to diagnose a patient with chronic kidney disease. Pharmacy Creatinine Clearance (Chem 21.94 [facility] Serum or plasma anion gap de terminationOrdered By: Hiral Interiano on 08-15-2022 Anion gap [Moles/Vol] 10.3 mmol/L Normal 6.0-15.0 [facility] Comment on above: Performed By: #### P T #### [facility] [address] [place] [address] Serum or plasma calcium alpesh urement (mass/volume)Ordered By: Hiral Interiano on 08-15-2022 Calcium [Mass/Vol] 7.7 mg/dL Low 8.2-10.2 [facility] Comment on above: Performed By: #### P T #### [facility] [address] Serum or plasma chloride adina surement (moles/volume)Ordered By: Hiral Interiano on 08-15-2022 Chloride [Moles/Vol] 112 mmol/L Normal 95-114 [facility] Comment on above: Performed By: #### P T #### [address] Serum or plasma creatinine m easurement with calculation of estimated glomerular filtrOrdered By: Hiral Interiano on 08-15-2022 Creatinine [Mass/Vol] 3.46 mg/dL Significan t change up 0.64-1.27 [facility] Comment on above: Delta: 6.60 on 08/14-432 Performed By: #### P T #### [address] Serum or plasma glucose alpesh urement (mass/volume)Ordered By: Hiral Interiano on 08-15-2022 Glucose [Mass/Vol] 140 mg/dL High 70-100 [facility] Comment on above: ADA recommended refe rence rangeRandom Glucose Reference Range is dependent on time and content of last meal. Glucose of more than 200 mg/dL in a nonstressed, ambulatory subject supports the diagnosis of Diabetes Mellitus. Result Comment: Stra[place] om Glucose Reference Range is dependent on time and content of last meal. Glucose of more than 200 mg/dL in a nonstressed, ambulatory subject supports the diagnosis of Diabetes Mellitus. ADA recommended reference range Performed By: #### P T #### [facility] [address] Serum or plasma potassium me asurement (moles/volume)Ordered By: Hiral Interiano on 08-15-2022 Potassium [Moles/Vol] 3.8 mmol/L Normal 3.5-5.[address] [facility] Comment on above: Performed By: #### P T #### [address] Serum or plasma sodium measu rement (moles/volume)Ordered By: Hiral Interiano on 08-15-2022 Sodium [Moles/Vol] 140 mmol/L Normal 136-146 [facility] Comment on above: Performed By: #### P T #### [address] Serum or plasma total carbon dioxide measurement (moles/volume)Ordered By: Hiral Interiano on 08-15-2022 CO2 [Moles/Vol] 21.5 mmol/L Low 22.0-30.0 [facility] Comment on above: Performed By: #### P T #### [address] Serum or plasma urea nitroge n measurement (mass/volume)Ordered By: Hiral Interiano on 08-15-2022 Urea nitrogen [Mass/Vol] 45 mg/dL High 9-23 [facility] Comment on above: Performed By: #### P T #### [address] Aerobic Cultureon 08-14-2022 Aerobic Culture ORGANISM: Rosanna al bicans (O:CANALB) Quantity of Growth Light Growth Gram Stain Result 3+ Epithelial Cells 2+ White Blood Cells 3+ Gram Positive Cocci 2+ Gram Negative Bacilli PERFORMED BY: [place] [address] PATHOLOGIST CONSTRUCTION MANAGEMENT ASSISTANT DIANDRA LACY M.D. [facility] Comment on above: Performed By: #### B MP #### [address] Basic Metabolic Panelon 07-28 Anion gap [Moles/Vol] 13.0 mmol/L Normal 6.0-15.0 [facility] Comment on above: Performed By: #### C BC, BMP ####[facility] [address] [place] [address] Calcium [Mass/Vol] 7.3 mg/dL Low 8.2-10.2 [facility] Comment on above: Performed By: #### C BC, BMP ####[facility] [place] [address] [facility] Chloride [Moles/Vol] 109 mmol/L Normal 95-114 [facility] Comment on above: Performed By: #### C BC, BMP ####[facility] [place] [address] [facility] CO2 [Moles/Vol] 21.9 mmol/L Low 22.0-30.0 [facility] Comment on above: Performed By: #### C BC, BMP ####[facility] [address] [place] [address] [facility] Creatinine [Mass/Vol] 6.60 mg/dL Significan t change up 0.64-1.27 [facility] Comment on above: Performed By: #### C BC, BMP ####[id number] [place] [address] [facility] Creatinine Clr Calc Pharmacy 11.49 [facility] Comment on above: Result Comment: PERF ORMED BY: [facility] [address] [id number] PATHOLOGIST CONSTRUCTION MANAGEMENT ASSISTANT DIANDRA LACY M.D. Performed By: #### C BC, BMP ####[place] [id number] [place] [address] [facility] Estimated GFR ( Yana 10 [facility] Comment on above: Result Comment: GFR estimated reference range: According to KDOQI guidelines, <60 ml/min/1.73m2 is sufficient to diagnose a patient with chronic kidney disease. Performed By: #### C BC, BMP ####[facility] [place] [address] [facility] Estimated GFR (Non- Am 8 [facility] Comment on above: Performed By: #### C BC, BMP ####[place] [place] [address] [facility] Glucose [Mass/Vol] 140 mg/dL High 70-100 [facility] Comment on above: Result Comment: [place] Glucose Reference Range is dependent on time and content of last meal. Glucose of more than 200 mg/dL in a nonstressed, ambulatory subject supports the diagnosis of Diabetes Mellitus. ADA recommended reference range Performed By: #### C BC, BMP ####[facility] [place] [address] [facility] Potassium [Moles/Vol] 3.9 mmol/L Normal 3.5-5.[address] [facility] Comment on above: Performed By: #### C BC, BMP ####[place] [address] [place] [address] [facility] Sodium [Moles/Vol] 140 mmol/L Normal 136-146 [facility] Comment on above: Performed By: #### C BC, BMP ####[place] [address] [place] [id number] [facility] Urea nitrogen [Mass/Vol] 61 mg/dL High 9- [facility] Comment on above: Performed By: #### C BC, BMP ####[place] [id number] [place] Basophils Auto (Bld) [#/Vol] Ordered By: Hiral Interiano on 08-14-2022 Basophils (Bld) [#/Vol] 0.0 10*3/uL 0.0-0.2 [facility] Basophils/100 WBC Auto (Bld) Ordered By: Hiral Interiano on 08-14-2022 Basophils/100 WBC (Bld) 0.2 % . [facility] Complete Blood Count Auto Di ffon 08-14-2022 Basophils (Bld) [#/Vol] 0.0 10*3/uL Normal 0.0-0.2 [facility] Comment on above: Result Comment: PERF ORMED BY: [facility] [address] [place] [id number] PATHOLOGIST CONSTRUCTION MANAGEMENT ASSISTANT DIANDRA LACY M.D. Performed By: #### C BC, BMP ####[place] [place] [id number] [facility] Basophils/100 WBC (Bld) 0.2 % Normal . [facility] Comment on above: Performed By: #### C BC, BMP ####[facility] Eosinophils (Bld) [#/Vol] 0.1 10*3/uL Normal 0.0-0.45 [facility] Comment on above: Performed By: #### C RUDOLPH, BMP ####[address] Eosinophils/100 WBC (Bld) 1.0 % Normal . [facility] Comment on above: Performed By: #### C BC, BMP ####[address] Erythrocyte distribution width (RBC) [Ratio] 13.5 % Normal 12.0-14.8 [facility] Comment on above: Performed By: #### C RUDOLPH, BMP ####[address] Hematocrit (Bld) [Volume fraction] 35.4 % Low 38.8-50.0 [facility] Comment on above: Performed By: #### C RUDOLPH, BMP ####[address] Hemoglobin (Bld) [Mass/Vol] 12.0 g/dL Low 13.0-17.0 [facility] Comment on above: Performed By: #### C RUDOLPH, BMP ####[address] Lymphocytes (Bld) [#/Vol] 0.6 10*3/uL Low 1.00-4.8 [facility] Comment on above: Performed By: #### C BC, BMP ####[address] Lymphocytes/100 WBC (Bld) 7.8 % Normal . [facility] Comment on above: Performed By: #### C BC, BMP ####[address] MCH (RBC) [Entitic mass] 33.0 pg Normal 27.5-35.2 [facility] Comment on above: Performed By: #### C BC, BMP ####[address] MCV (RBC) [Entitic vol] 97.3 fL Normal 83.5-101 [facility] Comment on above: Performed By: #### C RUDOLPH, BMP ####[address] Mean Corpuscular HGB Conc 33.9 g/dL Normal 32.5-35.6 [facility] Comment on above: Performed By: #### C RUDOLPH, BMP ####[address] Monocytes (Bld) [#/Vol] 0.8 10*3/uL Normal 0.0-0.8 [facility] Comment on above: Performed By: #### C RUDOLPH, BMP ####[address] Monocytes/100 WBC (Bld) 11.4 % Normal . [facility] Comment on above: Performed By: #### C RUDOLPH, BMP ####[address] Neutrophils (Bld) [#/Vol] 5.9 10*3/uL Normal 1.8-7.7 [facility] Comment on above: Performed By: #### C RUDOLPH, BMP ####[address] Neutrophils/100 WBC (Bld) 79.6 % Normal . [facility] Comment on above: Performed By: #### C RUDOLPH, BMP ####[address] NRBC% 0.1 /100{WBC} Normal 0-0.5 [facility] Comment on above: Performed By: #### C RUDOLPH, BMP ####[place] [id number] [facility] Platelet mean volume (Bld) [Entitic vol] 8.4 fL Normal 6.6-10.1 [facility] Comment on above: Performed By: #### C RUDOLPH, BMP ####[address] [place] [address] [place] Platelets (Bld) [#/Vol] 121 10*3/uL Low 150-450 [facility] Comment on above: Performed By: #### C BC, BMP ####[facility] RBC (Bld) [#/Vol] 3.64 10*6/uL Low 3.90-5.60 [facility] Comment on above: Performed By: #### C BC, BMP ####[facility] WBC (Bld) [#/Vol] 7.4 10*3/uL Normal 4.1-10.5 [facility] Comment on above: Performed By: #### C RUDOLPH, BMP ####[place] [address] Eosinophils Auto (Bld) [#/Vo l]Ordered By: Hiral Interiano on 08-14-2022 Eosinophils (Bld) [#/Vol] 0.1 10*3/uL 0.0-0.45 [facility] Eosinophils/100 WBC Auto (Bl d)Ordered By: Hiral Interiano on 08-14-2022 Eosinophils/100 WBC (Bld) 1.0 % . [facility] Erythrocyte distribution wid th Auto (RBC) [Ratio]Ordered By: Hiral Interiano on 08-14-2022 Erythrocyte distribution width (RBC) [Ratio] 13.5 % 12.0-14.8 [facility] Glucose Poct Glucometerson 0 08-14-2022 Commemt1 Glu2: Cleaned Meter Normal [facility] Comment on above: Result Comment: PERF ORMED BY: [facility] [address] [place] [address] PATHOLOGIST CONSTRUCTION MANAGEMENT ASSISTANT DIANDRA LACY M.D. Performed By: #### P T #### [facility] [address] Glucose [Mass/Vol] 140 mg/dL Normal [facility] Comment on above: Result Comment: [place] om Glucose Reference Range is dependent on time and content of last meal. Glucose of more than 200 mg/dL in a nonstressed, ambulatory subject supports the diagnosis of Diabetes Mellitus. Performed By: #### P T #### [facility] [address] [place] [address] Glucose [Mass/Vol] 125 mg/dL Normal [facility] Comment on above: Result Comment: [place] om Glucose Reference Range is dependent on time and content of last meal. Glucose of more than 200 mg/dL in a nonstressed, ambulatory subject supports the diagnosis of Diabetes Mellitus. PERFORMED BY: [place] [address] PATHOLOGIST CONSTRUCTION MANAGEMENT ASSISTANT DIANDRA LACY M.D. Performed By: #### P T #### [facility] [address] [place] [address] Glucose [Mass/Vol] 140 mg/dL Normal [facility] Comment on above: Result Comment: [place] om Glucose Reference Range is dependent on time and content of last meal. Glucose of more than 200 mg/dL in a nonstressed, ambulatory subject supports the diagnosis of Diabetes Mellitus. PERFORMED BY: [place] [address] PATHOLOGIST CONSTRUCTION MANAGEMENT ASSISTANT DIANDRA LACY M.D. Performed By: #### G LULS ####Point of Care testing, Commemt1 Glu2: Cleaned Meter Normal [facility] Comment on above: Result Comment: PERF ORMED BY: [place] [address] PATHOLOGIST CONSTRUCTION MANAGEMENT ASSISTANT DIANDRA LACY M.D. Performed By: #### G LULS ####Point of Care testing, Glucose [Mass/Vol] 175 mg/dL Normal [facility] Comment on above: Result Comment: [place] om Glucose Reference Range is dependent on [...] Cocci 2+ Gram Negative Bacilli PERFORMED BY: [place] [address] PATHOLOGIST CONSTRUCTION MANAGEMENT ASSISTANT DIANDRA LACY M.D. Normal [facility] Comment on above: Performed By: #### B MP #### [address] Hematocrit Auto (Bld) [Volum e fraction]Ordered By: Hiral Interiano on 08-14-2022 Hematocrit (Bld) [Volume fraction] 35.4 % 38.8-50.0 [facility] Hemoglobin [Mass/volume] in BloodOrdered By: Hiral Interiano on 08-14-2022 Hemoglobin (Bld) [Mass/Vol] 12.0 g/dL 13.0-17.0 [facility] Leukocytes [#/volume] correc ike for nucleated erythrocytes in Blood by Automated counOrdered By: Hiral Interiano on 08-14-2022 WBC corrected for nucl RBC Auto (Bld) [#/Vol] 7.4 10*3/uL 4.1-10.5 [facility] Lymphocytes Auto (Bld) [#/Vo l]Ordered By: Hiral Interiano on 08-14-2022 Lymphocytes (Bld) [#/Vol] 0.6 10*3/uL 1.00-4.8 [facility] Lymphocytes/100 WBC Auto (Bl d)Ordered By: Hiral Interiano on 08-14-2022 Lymphocytes/100 WBC (Bld) 7.8 % . [facility] MCH Auto (RBC) [Entitic mass ]Ordered By: Hiral Interiano on 08-14-2022 MCH (RBC) [Entitic mass] 33.0 pg 27.5-35.2 [facility] MCHC Auto (RBC) [Mass/Vol]Or dered By: Hiral Interiano on 08-14-2022 MCHC (RBC) [Mass/Vol] 33.9 g/dL 32.5-35.[address] [facility] MCV Auto (RBC) [Entitic vol] Ordered By: Hiral Interiano on 08-14-2022 MCV (RBC) [Entitic vol] 97.3 fL 83.5-101 [facility] Monocytes Auto (Bld) [#/Vol] Ordered By: Hiral Interiano on 08-14-2022 Monocytes (Bld) [#/Vol] 0.8 10*3/uL 0.0-0.8 [facility] Monocytes/100 WBC Auto (Bld) Ordered By: Hiral Interiano on 08-14-2022 Monocytes/100 WBC (Bld) 11.4 % . [facility] Neutrophils Auto (Bld) [#/Vo l]Ordered By: Hiral Interiano on 08-14-2022 Neutrophils (Bld) [#/Vol] 5.9 10*3/uL 1.8-7.7 [facility] Neutrophils/100 WBC Auto (Bl d)Ordered By: Hiral Interiano on 08-14-2022 Neutrophils/100 WBC (Bld) 79.6 % . [facility] No Panel InformationOrdered By: Hiral Interiano on 08-14-2022 Bedside Glucose Comment Glu2: cleaned meter [facility] Nucleated erythrocytes [Pres ence] in Blood by Automated countOrdered By: Hiral Interiano on 08-14-2022 Nucleated RBC Auto Ql (Bld) 0.1 /100{WBC} 0-0.5 [facility] Platelet mean volume Auto (B ld) [Entitic vol]Ordered By: Hiral Interiano on 08-14-2022 Platelet mean volume (Bld) [Entitic vol] 8.4 fL 6.6-10.1 [facility] Platelets Auto (Bld) [#/Vol] Ordered By: Hiral Interiano on 08-14-2022 Platelets (Bld) [#/Vol] 121 10*3/uL 150-450 [facility] RBC Auto (Bld) [#/Vol]Ordere d By: Hiral Interiano on 08-14-2022 RBC (Bld) [#/Vol] 3.64 10*6/uL 3.90-5.60 [facility] WBC Auto (Bld) [#/Vol]Ordere d By: Hiral Interiano on 08-14-2022 WBC (Bld) [#/Vol] 7.4 10*3/uL 4.1-10.5 [facility] Albumin Levelon 08-13-2022 Albumin [Mass/Vol] 3.0 g/dL Low 3.2-5.5 [facility] Comment on above: Result Comment: PERF ORMED BY: [place] [address] PATHOLOGIST CONSTRUCTION MANAGEMENT ASSISTANT DIANDRA LACY M.D. Performed By: #### B MP #### [address] Basic Metabolic Panelon 07-28 Anion gap [Moles/Vol] 18.4 mmol/L High 6.0-15.0 [facility] Comment on above: Order Comment: REDRA W Performed By: #### B MP #### [address] Calcium [Mass/Vol] 7.0 mg/dL Low 8.2-10.2 [facility] Comment on above: Order Comment: REDRA W Performed By: #### B MP #### [address] Chloride [Moles/Vol] 97 mmol/L Normal 95-114 [facility] Comment on above: Order Comment: REDRA W Performed By: #### B MP #### [facility] [address] [place] [address] CO2 [Moles/Vol] 24.5 mmol/L Normal 22.0-30.0 [facility] Comment on above: Order Comment: REDRA W Performed By: #### B MP #### [facility] [address] [place] [address] [place] Creatinine [Mass/Vol] 10.74 mg/dL Significan t change up 0.64-1.27 [facility] Comment on above: Order Comment: REDRA W Performed By: #### B MP #### [facility] [address] [place] [address] [place] Creatinine Clr Calc Pharmacy 7.06 [facility] Comment on above: Order Comment: REDRA W Result Comment: PERF ORMED BY: [place] [address] PATHOLOGIST CONSTRUCTION MANAGEMENT ASSISTANT DIANDRA LACY M.D. Performed By: #### B MP #### [place] [address] [place] Estimated GFR ( Yana 6 [facility] Comment on above: Order Comment: REDRA W Result Comment: GFR estimated reference range: According to KDOQI guidelines, <60 ml/min/1.73m2 is sufficient to diagnose a patient with chronic kidney disease. Performed By: #### B MP #### [place] [address] [place] Estimated GFR (Non- Am 5 [facility] Comment on above: Order Comment: REDRA W Performed By: #### B MP #### [address] Glucose [Mass/Vol] 85 mg/dL Normal 70-100 [facility] Comment on above: Order Comment: REDRA W Result Comment: [place] om Glucose Reference Range is dependent on time and content of last meal. Glucose of more than 200 mg/dL in a nonstressed, ambulatory subject supports the diagnosis of Diabetes Mellitus. ADA recommended reference range Performed By: #### B MP #### [place] [address] [place] Potassium [Moles/Vol] 4.9 mmol/L Normal 3.5-5.[address] [facility] Comment on above: Order Comment: REDRA W Performed By: #### B MP #### [facility] [address] [place], [place] [id number] [place] Sodium [Moles/Vol] 135 mmol/L Low 136-146 [facility] Comment on above: Order Comment: REDRA W Performed By: #### B MP #### [place] [address] [place] Urea nitrogen [Mass/Vol] 72 mg/dL Significant change up 03-19 [facility] Comment on above: Order Comment: REDRA W Performed By: #### B MP #### [address] Body fluid albumin measureme nt (mass/volume)Ordered By: Alicia Perea on 08-13-2022 Albumin (Body fld) [Mass/Vol] 3.0 g/dL 3.2-5.5 [facility] Complete Blood Count Auto Di ffon 08-13-2022 Basophils (Bld) [#/Vol] 0.0 10*3/uL Normal 0.0-0.2 [facility] Comment on above: Result Comment: PERF ORMED BY: [place] [address] PATHOLOGIST CONSTRUCTION MANAGEMENT ASSISTANT DIANDRA LACY M.D. Performed By: #### C BC #### [address] Basophils/100 WBC (Bld) 0.5 % Normal . [facility] Comment on above: Performed By: #### C BC #### [address] Eosinophils (Bld) [#/Vol] 0.1 10*3/uL Normal 0.0-0.45 [facility] Comment on above: Performed By: #### C BC #### [address] Eosinophils/100 WBC (Bld) 0.9 % Normal . [facility] Comment on above: Performed By: #### C BC #### [address] Erythrocyte distribution width (RBC) [Ratio] 13.7 % Normal 12.0-14.8 [facility] Comment on above: Performed By: #### C BC #### [address] Hematocrit (Bld) [Volume fraction] 34.2 % Low 38.8-50.0 [facility] Comment on above: Performed By: #### C BC #### [address] Hemoglobin (Bld) [Mass/Vol] 11.6 g/dL Low 13.0-17.0 [facility] Comment on above: Performed By: #### C BC #### [address] Lymphocytes (Bld) [#/Vol] 0.9 10*3/uL Low 1.00-4.8 [facility] Comment on above: Performed By: #### C BC #### [address] Lymphocytes/100 WBC (Bld) 9.6 % Normal . [facility] Comment on above: Performed By: #### C BC #### [address] MCH (RBC) [Entitic mass] 32.9 pg Normal 27.5-35.2 [facility] Comment on above: Performed By: #### C BC #### [address] MCV (RBC) [Entitic vol] 96.5 fL Normal 83.5-101 [facility] Comment on above: Performed By: #### C BC #### [address] Mean Corpuscular HGB Conc 34.1 g/dL Normal 32.5-35.6 [facility] Comment on above: Performed By: #### C BC #### [address] Monocytes (Bld) [#/Vol] 1.0 10*3/uL High 0.0-0.8 [facility] Comment on above: Performed By: #### C BC #### [address] Monocytes/100 WBC (Bld) 9.8 % Normal . [facility] Comment on above: Performed By: #### C BC #### [address] Neutrophils (Bld) [#/Vol] 7.8 10*3/uL High 1.8-7.7 [facility] Comment on above: Performed By: #### C BC #### [facility] [address] [place] [address] [place] Neutrophils/100 WBC (Bld) 79.2 % Normal . [facility] Comment on above: Performed By: #### C BC #### [facility] [address] NRBC% 0.1 /100{WBC} Normal 0-0.5 [facility] Comment on above: Performed By: #### C BC #### [facility] [address] Platelet mean volume (Bld) [Entitic vol] 8.7 fL Normal 6.6-10.1 [facility] Comment on above: Performed By: #### C BC #### [facility] [address] [place] [address] [place] Platelets (Bld) [#/Vol] 129 10*3/uL Low 150-450 [facility] Comment on above: Performed By: #### C BC #### [facility] [address] [place] [address] [place] RBC (Bld) [#/Vol] 3.54 10*6/uL Low 3.90-5.60 [facility] Comment on above: Performed By: #### C BC #### [facility] [address] [place] [address] [place] WBC (Bld) [#/Vol] 9.9 10*3/uL Normal 4.1-10.5 [facility] Comment on above: Performed By: #### C BC #### [facility] [address] [place] [address] [place] urethrocystogram retroon 08-13-2022 [place] urethrocystogram retro [facility] [address] [place] [address] [place] [address] Fluoroscopy Report Signed Patient: Victorino Smyth MR#: [id number] : 1940 Acct:[id number] Age/Sex: 82 / M ADM Date: 08/11/22 Loc: 4N Room: 6C3332-1 Type: ADM IN Attending Dr: Hiral Interiano [...] Perez Jr., D.OManohar08/13/2022 2:25 PM Dictation Location: [place] [address] Transcribed By: [facility] 08/13/22 142 Dictated By: Ifeanyi Perez Jr, DO 08/13/22 142 Signed By: 08/13/22 142 [facility] Glucose Poct Glucometerson 0 08-13-2022 Commemt1 Glu2: Cleaned Meter [facility] Comment on above: Result Comment: PERF ORMED BY: [place] [address] PATHOLOGIST CONSTRUCTION MANAGEMENT ASSISTANT DIANDRA LACY M.D. Performed By: #### B MP #### [facility] [address] [place] [address] Glucose [Mass/Vol] 91 mg/dL [facility] Comment on above: Result Comment: [facility] Glucose Reference Range is dependent on time and content of last meal. Glucose of more than 200 mg/dL in a nonstressed, ambulatory subject supports the diagnosis of Diabetes Mellitus. Performed By: #### B MP #### [facility] [address] [place] [address] Commemt1 Glu2: Cleaned Meter [facility] Comment on above: Result Comment: PERF ORMED BY: [place] [address] PATHOLOGIST CONSTRUCTION MANAGEMENT ASSISTANT DIANDRA LACY M.D. Performed By: #### G LULS ####Point of Care testing, Glucose [Mass/Vol] 94 mg/dL Normal [facility] Comment on above: Result Comment: [facility] Glucose Reference Range is dependent on time and content of last meal. Glucose of more than 200 mg/dL in a nonstressed, ambulatory subject supports the diagnosis of Diabetes Mellitus. Performed By: #### G JOHANNE ####Point of Care testing, Operative Reporton Operative Report [id number]:[id number] Normal [facility] A1C with Estimated Average G marianna 08-12-2022 Glucose [Mass/Vol] 212 mg/dL Normal [facility] Comment on above: Result Comment: PERF ORMED BY: [facility] [address] [place] [address] PATHOLOGIST CONSTRUCTION MANAGEMENT ASSISTANT DIANDRA LACY M.D. Performed By: #### B MP #### [facility] [address] HbA1c (Bld) [Mass fraction] 9.0 % High 4.3-5.6 [facility] Comment on above: Result Comment: Incr eased risk for diabetes: 5.7 - 6.4 diabetes: >6.4 glycemic control for adults with diabetes: <7.0 Performed By: #### B MP #### [facility] [address] Basic Metabolic Panelon 07-28 Anion gap [Moles/Vol] 20.6 mmol/L High 6.0-15.0 [facility] Comment on above: Performed By: #### B MP, CBC ####[facility] Calcium [Mass/Vol] 7.1 mg/dL Low 8.2-10.2 [facility] Comment on above: Performed By: #### B MP, CBC ####[facility] [place] [id number] [place] Chloride [Moles/Vol] 104 mmol/L Normal 95-114 [facility] Comment on above: Performed By: #### B MP, CBC ####[facility] [place] [address] [place] CO2 [Moles/Vol] 20.2 mmol/L Low 22.0-30.0 [facility] Comment on above: Performed By: #### B MP, CBC ####[place] [address] [place] [address] [facility] Creatinine [Mass/Vol] 15.50 mg/dL Significan t change up 0.64-1.27 [facility] Comment on above: Performed By: #### B MP, CBC ####[place] [address] [place] [address] [place] Creatinine Clr Calc Pharmacy 4.90 [facility] Comment on above: Result Comment: PERF ORMED BY: [facility] [address] [facility] [place] [address] PATHOLOGIST CONSTRUCTION MANAGEMENT ASSISTANT DIANDRA LACY M.D. Performed By: #### B MP, CBC ####[address] [address] [facility] Estimated GFR ( Yana 4 [facility] Comment on above: Result Comment: GFR estimated reference range: According to KDOQI guidelines, <60 ml/min/1.73m2 is sufficient to diagnose a patient with chronic kidney disease. Performed By: #### B MP, CBC ####[address] [address] [facility] Estimated GFR (Non- Am 3 [facility] Comment on above: Performed By: #### B MP, CBC ####[facility] [place] [id number] [facility] Glucose [Mass/Vol] 100 mg/dL Significant change down 70-100 [facility] Comment on above: Result Comment: [place] Glucose Reference Range is dependent on time and content of last meal. Glucose of more than 200 mg/dL in a nonstressed, ambulatory subject supports the diagnosis of Diabetes Mellitus. ADA recommended reference range Performed By: #### B MP, CBC ####[address] [address] [place] Potassium [Moles/Vol] 4.8 mmol/L Significan t change down 3.5-5.1 [facility] Comment on above: Performed By: #### B MP, CBC ####[address] Sodium [Moles/Vol] 140 mmol/L Significant change down 136-146 [facility] Comment on above: Performed By: #### B MP, CBC ####[address] Urea nitrogen [Mass/Vol] 133 mg/dL Significant change up - [facility] Comment on above: Performed By: #### B MP, CBC ####[address] Complete Blood Count Auto Di ffon 08-12-2022 Basophils (Bld) [#/Vol] 0.0 10*3/uL Normal 0.0-0.2 [facility] Comment on above: Result Comment: PERF ORMED BY: [facility] [address] [place] [address] PATHOLOGIST CONSTRUCTION MANAGEMENT ASSISTANT DIANDRA LACY M.D. Performed By: #### B MP, CBC ####[address] Basophils/100 WBC (Bld) 0.2 % Normal . [facility] Comment on above: Performed By: #### B MP, CBC ####[address] Eosinophils (Bld) [#/Vol] 0.0 10*3/uL Normal 0.0-0.45 [facility] Comment on above: Performed By: #### B MP, CBC ####[address] Eosinophils/100 WBC (Bld) 0.0 % Normal . [facility] Comment on above: Performed By: #### B MP, CBC ####[address] Erythrocyte distribution width (RBC) [Ratio] 13.6 % Normal 12.0-14.8 [facility] Comment on above: Performed By: #### B MP, CBC ####[address] Hematocrit (Bld) [Volume fraction] 33.6 % Low 38.8-50.0 [facility] Comment on above: Performed By: #### B MP, CBC ####[address] Hemoglobin (Bld) [Mass/Vol] 11.5 g/dL Low 13.0-17.0 [facility] Comment on above: Performed By: #### B MP, CBC ####[address] Lymphocytes (Bld) [#/Vol] 0.6 10*3/uL Low 1.00-4.8 [facility] Comment on above: Performed By: #### B MP, CBC ####[address] Lymphocytes/100 WBC (Bld) 4.4 % Normal . [facility] Comment on above: Performed By: #### B MP, CBC ####[address] MCH (RBC) [Entitic mass] 32.9 pg Normal 27.5-35.2 [facility] Comment on above: Performed By: #### B MP, CBC ####[address] MCV (RBC) [Entitic vol] 95.9 fL Normal 83.5-101 [facility] Comment on above: Performed By: #### B MP, CBC ####[address] Mean Corpuscular HGB Conc 34.3 g/dL Normal 32.5-35.6 [facility] Comment on above: Performed By: #### B MP, CBC ####[address] Monocytes (Bld) [#/Vol] 1.0 10*3/uL High 0.0-0.8 [facility] Comment on above: Performed By: #### B MP, CBC ####[address] Monocytes/100 WBC (Bld) 7.4 % Normal . [facility] Comment on above: Performed By: #### B MP, CBC ####[address] Neutrophils (Bld) [#/Vol] 11.8 10*3/uL High 1.8-7.7 [facility] Comment on above: Performed By: #### B MP, CBC ####[address] Neutrophils/100 WBC (Bld) 88.0 % Normal . [facility] Comment on above: Performed By: #### B MP, CBC ####[address] NRBC% 0.0 /100{WBC} Normal 0-0.5 [facility] Comment on above: Performed By: #### B MP, CBC ####[address] Platelet mean volume (Bld) [Entitic vol] 8.3 fL Normal 6.6-10.1 [facility] Comment on above: Performed By: #### B MP, CBC ####[address] Platelets (Bld) [#/Vol] 162 10*3/uL Normal 150-450 [facility] Comment on above: Performed By: #### B MP, CBC ####[address] RBC (Bld) [#/Vol] 3.51 10*6/uL Low 3.90-5.60 [facility] Comment on above: Performed By: #### B MP, CBC ####[address] WBC (Bld) [#/Vol] 13.4 10*3/uL High 4.1-10.5 [facility] Comment on above: Performed By: #### B MP, CBC ####[facility] [id number] [id number] [facility] Consultation Noteon 08-12-19 Consultation Note [id number]:[id number] Normal [facility] Glucose Poct Glucometerson 0 08-12-2022 Glucose [Mass/Vol] 114 mg/dL Normal [facility] Comment on above: Result Comment: [facility] Glucose Reference Range is dependent on time and content of last meal. Glucose of more than 200 mg/dL in a nonstressed, ambulatory subject supports the diagnosis of Diabetes Mellitus. PERFORMED BY: [place] [address] PATHOLOGIST CONSTRUCTION MANAGEMENT ASSISTANT DIANDRA LACY M.D. Performed By: #### G JOHANNE #### Point of Care testing , Glucose [Mass/Vol] 111 mg/dL Normal [facility] Comment on above: Result Comment: [facility] Glucose Reference Range is dependent on time and content of last meal. Glucose of more than 200 mg/dL in a nonstressed, ambulatory subject supports the diagnosis of Diabetes Mellitus. PERFORMED BY: [facility] [address] [place] [address] PATHOLOGIST CONSTRUCTION MANAGEMENT ASSISTANT DIANDRA LACY M.D. Performed By: #### G LULS #### Point of Care testing , Glucose [Mass/Vol] 96 mg/dL Normal [facility] Comment on above: Result Comment: [facility] Glucose Reference Range is dependent on time and content of last meal. Glucose of more than 200 mg/dL in a nonstressed, ambulatory subject supports the diagnosis of Diabetes Mellitus. PERFORMED BY: [place] [address] PATHOLOGIST CONSTRUCTION MANAGEMENT ASSISTANT DIANDRA LACY M.D. Performed By: #### B MP #### [facility] [address] Glucose [Mass/Vol] 91 mg/dL Normal [facility] Comment on above: Result Comment: [facility] Glucose Reference Range is dependent on time and content of last meal. Glucose of more than 200 mg/dL in a nonstressed, ambulatory subject supports the diagnosis of Diabetes Mellitus. PERFORMED BY: [place] [address] PATHOLOGIST CONSTRUCTION MANAGEMENT ASSISTANT DIANDRA LACY M.D. Performed By: #### B MP #### [facility] [address] [place] [address] Glucose [Mass/Vol] 93 mg/dL Normal [facility] Comment on above: Result Comment: [place] Glucose Reference Range is dependent on time and content of last meal. Glucose of more than 200 mg/dL in a nonstressed, ambulatory subject supports the diagnosis of Diabetes Mellitus. PERFORMED BY: [place] [address] PATHOLOGIST CONSTRUCTION MANAGEMENT ASSISTANT DIANDRA LACY M.D. Performed By: #### P T #### [facility] [address] [place] [address] Commemt1 Glu2: Cleaned Meter Normal [facility] Comment on above: Result Comment: PERF ORMED BY: [place] [address] PATHOLOGIST CONSTRUCTION MANAGEMENT ASSISTANT DIANDRA LACY M.D. Performed By: #### G LULS #### Point of Care testing , Glucose [Mass/Vol] 87 mg/dL Normal [facility] Comment on above: Result Comment: [facility] Glucose Reference Range is dependent on time [...] from glycated hemoglobin (Bld) [Mass/Vol] 212 mg/dL [facility] Hemoglobin A1c percentageOrd ered By: Hiral Interiano on 08-12-2022 HbA1c (Bld) [Mass fraction] 9.0 % 4.3-5.6 [facility] Comment on above: Increased risk for d iabetes: 5.7 - 6.4diabetes: >6.4glycemic control for adults with diabetes: <7.0 Anisocytosis LM Ql (Bld)Orde red By: Hiral Interiano on 08-11-2022 Anisocytosis Ql (Bld) Slight [facility] Band form neutrophils/100 WB C Manual cnt (Bld)Ordered By: Hiral Interiano on 08-11-2022 Band form neutrophils/100 WBC (Bld) 1 % 0-5 [facility] Basic Metabolic Panelon 07-28 Anion gap [Moles/Vol] 30.1 mmol/L High 6.0-15.0 [facility] Comment on above: Performed By: #### B MP #### [facility] [address] Calcium [Mass/Vol] 7.2 mg/dL Low 8.2-10.2 [facility] Comment on above: Performed By: #### B MP #### [facility] [address] Chloride [Moles/Vol] 99 mmol/L Normal 95-114 [facility] Comment on above: Performed By: #### B MP #### [facility] [address] [id number] [facility] CO2 [Moles/Vol] 9.3 mmol/L Low 22.0-30.0 [facility] Comment on above: Performed By: #### B MP #### [facility] [address] [place] [address] [place] Creatinine Clr Calc Pharmacy 4.24 Normal [facility] Comment on above: Result Comment: PERF ORMED BY: [place] [address] PATHOLOGIST CONSTRUCTION MANAGEMENT ASSISTANT DIANDRA LACY M.D. Performed By: #### B MP #### [facility] [address] [place] [address] [place] Estimated GFR ( Yana 3 [facility] Comment on above: Result Comment: GFR estimated reference range: According to KDOQI guidelines, <60 ml/min/1.73m2 is sufficient to diagnose a patient with chronic kidney disease. Performed By: #### B MP #### [facility] [address] Estimated GFR (Non- Am 3 [facility] Comment on above: Performed By: #### B MP #### [facility] [address] Glucose [Mass/Vol] 507 mg/dL Off scale high 70-100 [facility] Comment on above: Result Comment: Resu lts called at 1409 on 08/11/22 Random Glucose Reference Range is dependent on time and content of last meal. Glucose of more than 200 mg/dL in a nonstressed, ambulatory subject supports the diagnosis of Diabetes Mellitus. ADA recommended reference range Performed By: #### B MP #### [address] Potassium [Moles/Vol] 7.4 mmol/L Off scale high 3.5-5.1 [facility] Comment on above: Result Comment: Resu lts called at 1409 on 08/11/22 Performed By: #### B MP #### [address] Sodium [Moles/Vol] 131 mmol/L Low 136-146 [facility] Comment on above: Performed By: #### B MP #### [facility] [address] [place] [address] [place] Urea nitrogen [Mass/Vol] 163 mg/dL High 03-19 [facility] Comment on above: Performed By: #### B MP #### [place] [address] [place] Beta Hydroxybuterateon 08-11 Beta Hydroxybuterate 2.40 mmol/L High 0.05-0.[address] [facility] Comment on above: Result Comment: PERF ORMED BY: [facility] [address] [place] [address] PATHOLOGIST CONSTRUCTION MANAGEMENT ASSISTANT DIANDRA LACY M.D. Performed By: #### B MP #### [facility] [address] Beta-hydroxybutyric acid adina surementOrdered By: Alicia Perea on 08-11-2022 Beta hydroxybutyrate [Mass/Vol] 2.40 mmol/L 0.05-0.27 [facility] Amie cells [Presence] in Blo od by Light microscopyOrdered By: Hiral Interiano on 08-11-2022 Amie cells LM Ql (Bld) Slight [facility] CARDIAC GUIDO 3-6on 3 CK [Catalytic activity/Vol] 162 U/L Normal 39-308 [facility] Comment on above: Performed By: #### T SH, LIPID, T4, FT3, CMP #### [facility] [address] [address] [address] Alicia Patel CK.MB [Mass/Vol] 5.52 ng/mL Critically high <=3.60 [facility] Comment on above: Performed By: #### T SH, LIPID, T4, FT3, CMP #### [facility] [address] [address] [address] Alicia Patel HSTROP 19.7 pg/mL Normal 4.0-76.1 [facility] Comment on above: Result Comment: CUT- OFF POINTS HAVE BEEN ESTABLISHED BASED ON THE FOURTH UNIVERSAL DEFINITIONS OF MYOCARDIAL INFARCTION. THE UPPER REFERENCE LIMIT (URL) OF TROPONIN, DEFINED THE 99TH PERCENTILE OF cTnI DISTRIBUTION IN A REFERENCE POPULATION, HAS BEEN CONFIRMED THE DECISION THRESHOLD FOR [place] DIAGNOSIS. Performed By: #### T SH, LIPID, T4, FT3, CMP #### [facility] [address] [address] [address] Alicia Patel CK [Catalytic activity/Vol] 150 U/L Normal 39-308 [facility] Comment on above: Performed By: #### T SH, LIPID, T4, FT3, CMP #### [facility] [address] [address] [address] Alicia Patel CK.MB [Mass/Vol] 4.99 ng/mL Critically high <=3.60 [facility] Comment on above: Performed By: #### T SH, LIPID, T4, FT3, CMP #### [facility] [address] [place] [address] [address] Alicia Patel HSTROP 16.9 pg/mL Normal 4.0-76.1 [facility] Comment on above: Result Comment: CUT- OFF POINTS HAVE BEEN ESTABLISHED BASED ON THE FOURTH UNIVERSAL DEFINITIONS OF MYOCARDIAL INFARCTION. THE UPPER REFERENCE LIMIT (URL) OF TROPONIN, DEFINED THE 99TH PERCENTILE OF cTnI DISTRIBUTION IN A REFERENCE POPULATION, HAS BEEN CONFIRMED THE DECISION THRESHOLD FOR [place] DIAGNOSIS. Performed By: #### T SH, LIPID, T4, FT3, CMP #### [facility] [address] [place] [address] Dr. Alicia Patel CARDIAC GUIDO ADMITon 023 CK [Catalytic activity/Vol] 128 U/L Normal 39-308 [facility] Comment on above: Performed By: #### T SH, LIPID, T4, FT3, CMP #### [facility] [address] [place] [address] [address] Alicia Patel CK.MB [Mass/Vol] 4.95 ng/mL Critically high <=3.60 [facility] Comment on above: Performed By: #### T SH, LIPID, T4, FT3, CMP #### [facility] [address] [place] [address] Dr. Alicia Patel HSTROP 18.0 pg/mL Normal 4.0-76.1 [facility] Comment on above: Result Comment: CUT- OFF POINTS HAVE BEEN ESTABLISHED BASED ON THE FOURTH UNIVERSAL DEFINITIONS OF MYOCARDIAL INFARCTION. THE UPPER REFERENCE LIMIT (URL) OF TROPONIN, DEFINED THE 99TH PERCENTILE OF cTnI DISTRIBUTION IN A REFERENCE POPULATION, HAS BEEN CONFIRMED THE DECISION THRESHOLD FOR [place] DIAGNOSIS. Performed By: #### T SH, LIPID, T4, FT3, CMP #### [facility] [address] [place] [address] Dr. Alicia Patel LIZZY 188 ng/mL Critically high 16-96 [facility] Comment on above: Performed By: #### T SH, LIPID, T4, FT3, CMP #### [facility] [address] [place] [address] Dr. Alicia Patel CBC AUTO DIFFon 08-11-2022 BASO # 0.0 103/ul Normal 0.0-0.1 [facility] Comment on above: Performed By: #### T SH, LIPID, T4, FT3, CMP #### [facility] [address] [place] [address] Dr. Alicia Patel Basophils/100 WBC (Bld) 0.3 % Normal 0.2-2.0 [facility] Comment on above: Performed By: #### T SH, LIPID, T4, FT3, CMP #### [facility] [address] [place] [address] Dr. Alicia Patel EO # 0.2 103/ul Normal 0.0-0.7 [facility] Comment on above: Performed By: #### T SH, LIPID, T4, FT3, CMP #### [facility] [address] [place] [address] Dr. Alicia Patel Eosinophils/100 WBC (Bld) 1.8 % Normal 0.9-7.0 [facility] Comment on above: Performed By: #### T SH, LIPID, T4, FT3, CMP #### [facility] [address] [place] [address] Dr. Alicia Patel Erythrocyte distribution width (RBC) [Ratio] 13.2 % Normal 11.0-15.0 [facility] Comment on above: Performed By: #### T SH, LIPID, T4, FT3, CMP #### [facility] [address] [place] [address] Dr. Alicia Patel Hematocrit (Bld) [Volume fraction] 36.0 % Critically low 42.0-54.0 [facility] Comment on above: Performed By: #### T SH, LIPID, T4, FT3, CMP #### [facility] [address] [place] [address] Dr. Alicia Patel Hemoglobin (Bld) [Mass/Vol] 12.0 g/dL Critically low 14.0-18.0 [facility] Comment on above: Performed By: #### T SH, LIPID, T4, FT3, CMP #### [facility] [address] [place] [address] Dr. Alicia Patel IG # 0.34 10e3/ul Critically high 0.00-0.03 [facility] Comment on above: Performed By: #### T SH, LIPID, T4, FT3, CMP #### [facility] [address] [place] [address] Dr. Alicia Patel IG % 3.8 % Critically high 0.0-0.5 [facility] Comment on above: Performed By: #### T SH, LIPID, T4, FT3, CMP #### [facility] [address] [place] [address] Dr. Alicia Patel LYMPH # 0.5 103/ul Critically low 1.2-3.8 [facility] Comment on above: Performed By: #### T SH, LIPID, T4, FT3, CMP #### [facility] [address] [place] [address] Dr. Alicia Patel Lymphocytes/100 WBC (Bld) 5.9 % Critically low 20.5-60.0 [facility] Comment on above: Performed By: #### T SH, LIPID, T4, FT3, CMP #### [facility] [address] [place] [address] Dr. Alicia Patel MANUAL DIFF REQ NO Normal [facility] Comment on above: Performed By: #### T SH, LIPID, T4, FT3, CMP #### [facility] [address] [place] [address] Dr. Alicia Patel MCH (RBC) [Entitic mass] 32.3 pg Normal 25.9-34.0 [facility] Comment on above: Performed By: #### T SH, LIPID, T4, FT3, CMP #### [facility] [address] [place] [address] Dr. Alicia Patel MCHC (RBC) [Mass/Vol] 33.3 g/dL Normal 29.9-35.2 [facility] Comment on above: Performed By: #### T SH, LIPID, T4, FT3, CMP #### [facility] [address] [place] [address] Dr. Alicia Patel MCV (RBC) [Entitic vol] 97.0 fL Critically high 80.0-94.0 [facility] Comment on above: Performed By: #### T SH, LIPID, T4, FT3, CMP #### [facility] [address] [place] [address] Dr. Alicia Patel MONO # 0.5 103/ul Normal 0.3-0.8 [facility] Comment on above: Performed By: #### T SH, LIPID, T4, FT3, CMP #### [facility] [address] [place] [address] Dr. Alicia Patel Monocytes/100 WBC (Bld) 5.5 % Normal 1.7-12.0 [facility] Comment on above: Performed By: #### T SH, LIPID, T4, FT3, CMP #### [facility] [address] [place] [address] Dr. Alicia Patel NEUT # 7.5 103/ul Critically high 1.4-6.5 [facility] Comment on above: Performed By: #### T SH, LIPID, T4, FT3, CMP #### [facility] [address] [place] [address] Dr. Alicia Patel Neutrophils/100 WBC (Bld) 82.7 % Critically high 43.0-75.0 [facility] Comment on above: Performed By: #### T SH, LIPID, T4, FT3, CMP #### [facility] [address] [place] [address] Dr. Alicia Patel Platelet mean volume (Bld) [Entitic vol] 10.2 fL Normal 9.5-13.5 [facility] Comment on above: Performed By: #### T SH, LIPID, T4, FT3, CMP #### [facility] [address] [place] [address] Dr. Alicia Patel PLT 191 103/ul Normal 150-450 [facility] Comment on above: Performed By: #### T SH, LIPID, T4, FT3, CMP #### [facility] [address] [place], [place] [address] Dr. Alicia Patel RBC 3.71 106/ul Critically low 4.70-6.10 [facility] Comment on above: Performed By: #### T SH, LIPID, T4, FT3, CMP #### [facility] [address] [place], [place] [address] Dr. Alicia Patel WBC 9.0 103/ul Normal 4.0-11.0 [facility] Comment on above: Performed By: #### T SH, LIPID, T4, FT3, CMP #### [facility] [address] [place], [place] [address] ABD/PELVIS WO CONon [...] ILA GALLEGO Date: 2022-08-11 08:38 Normal [facility] Covid-19 PCR (CVDTBH)on 07-28 SARS-CoV-2 (COVID-19) RNA SAVANNAH+probe Ql (Unsp spec) Not detected Normal NOT DETECTED [facility] Comment on above: Result Comment: When diagnostic [...] for this test is supported by the [employer] of Health and Human Service's declaration that [...] T SH, LIPID, T4, FT3, CMP #### [facility] [address] [address] [address] Alicia Patel Diff and CBCon 08-11-2022 Anisocytosis Ql (Bld) Slight Normal [facility] Comment on above: Performed By: #### P T #### [address] Band form neutrophils/100 WBC (Bld) 1 % Normal 0-5 [facility] Comment on above: Performed By: #### P T #### [address] Crenated RBC Slight Normal [facility] Comment on above: Performed By: #### P T #### [address] Erythrocyte distribution width (RBC) [Ratio] 13.8 % Normal 12.0-14.8 [facility] Comment on above: Performed By: #### P T #### [address] Hematocrit (Bld) [Volume fraction] 38.1 % Low 38.8-50.0 [facility] Comment on above: Performed By: #### P T #### [address] Hemoglobin (Bld) [Mass/Vol] 12.5 g/dL Low 13.0-17.0 [facility] Comment on above: Performed By: #### P T #### [address] Lymphocytes/100 WBC (Bld) 5 % Low 18-42 [facility] Comment on above: Performed By: #### P T #### [address] MCH (RBC) [Entitic mass] 32.5 pg Normal 27.5-35.2 [facility] Comment on above: Performed By: #### P T #### [address] MCV (RBC) [Entitic vol] 99.0 fL Normal 83.5-101 [facility] Comment on above: Performed By: #### P T #### [address] Mean Corpuscular HGB Conc 32.8 g/dL Normal 32.5-35.6 [facility] Comment on above: Performed By: #### P T #### [address] Microcytosis Slight Normal [facility] Comment on above: Performed By: #### P T #### [address] Monocytes/100 WBC (Bld) 1 % Low 2-11 [facility] Comment on above: Performed By: #### P T #### [address] Platelet Estimate Normal Normal Normal [facility] Comment on above: Performed By: #### P T #### [address] Platelet mean volume (Bld) [Entitic vol] 8.8 fL Normal 6.6-10.1 [facility] Comment on above: Performed By: #### P T #### [address] Platelet Morphology Normal Normal Normal [facility] Comment on above: Result Comment: PERF ORMED BY: [place] [address] PATHOLOGIST CONSTRUCTION MANAGEMENT ASSISTANT DIANDRA LACY M.D. Performed By: #### P T #### [address] Platelets (Bld) [#/Vol] 203 10*3/uL Normal 150-450 [facility] Comment on above: Performed By: #### P T #### [address] Poikilocytosis Slight Normal [facility] Comment on above: Performed By: #### P T #### [address] RBC (Bld) [#/Vol] 3.85 10*6/uL Low 3.90-5.60 [facility] Comment on above: Performed By: #### P T #### [address] Segmented neutrophils/100 WBC (Bld) 94 % High 50-70 [facility] Comment on above: Performed By: #### P T #### [address] WBC (Bld) [#/Vol] 9.1 10*3/uL Normal 4.1-10.5 [facility] Comment on above: Performed By: #### P T #### [address] ECG 12 lead ECGon 08-11-2022 ECG 12 lead ECG [facility] [place] [address] [place] [address] Electrocardiograph Report Signed Patient: Victorino Smyth MR#: [id number] : 1940 Acct:[id number] Age/Sex: 82 / M ADM Date: 08/11/22 Loc: 4N Room: 3B7215-5 Type: ADM IN Attending Dr: Hiral Interiano [...] By Yogesh Cisneros DO 08/13 1820 Normal [facility] ECG 12 lead ECG [facility] [place] [address] Electrocardiograph Report Signed Patient: Victorino Smyth MR#: [id number] : 1940 Acct:[id number] Age/Sex: 82 / M ADM Date: 08/11/22 Loc: Room: [id number] Type: ADM IN Attending Dr: Hiral Interiano [...] When compared with ECG of 28-JUN-2019 20:47, HI interval has increased Confirmed by YOGESH CISNEROS DO ([id number]) on 08/11/2022 6:42:37 PM Referred By: Electronically Signed By:YOGESH CISNEROS DO Transcribed By: MUS Signed By Yogesh Cisneros DO 08/11 1842 Normal [facility] ER URINE PROFILEon 3 Bilirubin Ql (U) Negative Normal NEGATIVE [facility] Comment on above: Performed By: #### T SH, LIPID, T4, FT3, CMP #### [facility] [address] [address] [address] Alicia Patel Clarity (U) CLEAR Normal CLEAR [facility] Comment on above: Performed By: #### T SH, LIPID, T4, FT3, CMP #### [facility] [address] [address] [address] Alicia Patel Color (U) LT. YELLOW Normal YELLOW [facility] Comment on above: Performed By: #### T SH, LIPID, T4, FT3, CMP #### [facility] [address] [place] [address] Dr. Alicia Patel ERUROLAND A micrscopic examina tion will be performed if indicated. Normal [facility] Comment on above: Performed By: #### T SH, LIPID, T4, FT3, CMP #### [facility] [address] [address] [address] Alicia Patel Glucose Ql (U) Negative Normal NEGATIVE [facility] Comment on above: Performed By: #### T SH, LIPID, T4, FT3, CMP #### [facility] [address] [address] [address] Alicia Patel Hemoglobin Ql (U) SMALL Abnormal NEGATIVE [facility] Comment on above: Performed By: #### T SH, LIPID, T4, FT3, CMP #### [facility] Laboratory [address] [address] [address] Alicia Patel Ketones Ql (U) Negative Normal NEGATIVE [facility] Comment on above: Performed By: #### T SH, LIPID, T4, FT3, CMP #### [facility] [address] [address] [address] Alicia Patel LEUKOCYTES Negative Normal NEGATIVE [facility] Comment on above: Performed By: #### T SH, LIPID, T4, FT3, CMP #### [facility] [address] [address] [address] Alicia Patel Nitrite Ql (U) Negative Normal NEGATIVE [facility] Comment on above: Performed By: #### T SH, LIPID, T4, FT3, CMP #### [facility] [address] [address] [address] Alicia Patel pH (U) 6.0 [pH] Normal 5-9 [facility] Comment on above: Performed By: #### T SH, LIPID, T4, FT3, CMP #### [facility] [address] [place] [address] Dr. Alicia Patel Protein (U) [Mass/Vol] 100 mg/dL Abnormal NEGAT ОЛЕГ/ TRACE [facility] Comment on above: Performed By: #### T SH, LIPID, T4, FT3, CMP #### [facility] [address] [place] [address] Dr. Alicia Patel SPEC GRAVITY 1.015 Normal 1.005-<=1. 025 [facility] Comment on above: Performed By: #### T SH, LIPID, T4, FT3, CMP #### [facility] [address] [place] [address] Dr. Alicia Patel UR MICRO IND INDICATED Normal [facility] Comment on above: Performed By: #### T SH, LIPID, T4, FT3, CMP #### [facility] [address] [place] [address] Dr. Alicia Patel Urobilinogen Qn (U) 0.2 {Wil'U}/dL Normal 0.2 - 1. 0 [facility] Comment on above: Performed By: #### T SH, LIPID, T4, FT3, CMP #### [facility] [address] [place] [address] Dr. Alicia Patel Glucose Poct Glucometerson 0 08-11-2022 Glucose [Mass/Vol] 282 mg/dL Normal [facility] Comment on above: Result Comment: Strawn Glucose Reference Range is dependent on time and content of last meal. Glucose of more than 200 mg/dL in a nonstressed, ambulatory subject supports the diagnosis of Diabetes Mellitus. PERFORMED BY: [address] [place] [address] PATHOLOGIST CONSTRUCTION MANAGEMENT ASSISTANT DIANDRA LACY M.D. Performed By: #### P T #### [address] Commemt1 Glu2: Cleaned Meter [facility] Comment on above: Result Comment: PERF ORMED BY: [address] [place] [address] PATHOLOGIST CONSTRUCTION MANAGEMENT ASSISTANT DIANDRA LACY M.D. Performed By: #### G LULS ####Point of Care testing, Glucose [Mass/Vol] 253 mg/dL Normal [facility] Comment on above: Result Comment: Strawn om Glucose Reference Range is dependent on time and content of last meal. Glucose of more than 200 mg/dL in a nonstressed, ambulatory subject supports the diagnosis of Diabetes Mellitus. Performed By: #### G LULS ####Point of Care testing, Commemt1 Glu2: Cleaned Meter [facility] Comment on above: Result Comment: PERF ORMED BY: [place] [address] PATHOLOGIST CONSTRUCTION MANAGEMENT ASSISTANT DIANDRA LACY M.D. Performed By: #### P T #### [address] Glucose [Mass/Vol] 304 mg/dL Normal [facility] Comment on above: Result Comment: Strawn om Glucose Reference Range is dependent on time and content of last meal. Glucose of more than 200 mg/dL in a nonstressed, ambulatory subject supports the diagnosis of Diabetes Mellitus. Performed By: #### P T #### [facility] [address] [place] [address] Commemt1 [facility] Comment on above: Result Comment: Glu2 : Result Not Confirmed PERFORMED BY: [place] [address] PATHOLOGIST CONSTRUCTION MANAGEMENT ASSISTANT DIANDRA LACY M.D. Performed By: #### B MP #### [address] [address] [place] Glucose [Mass/Vol] 440 mg/dL Off scale high [facility] Comment on above: Result Comment: [facility] Glucose Reference Range is dependent on time and content of last meal. Glucose of more than 200 mg/dL in a nonstressed, ambulatory subject supports the diagnosis of Diabetes Mellitus. Performed By: #### B MP #### [facility] [address] [place] [address] Hepatitis Acute Panelon 07-28 HBsAg Screen Negative Normal Negative [facility] Comment on above: Order Comment: DRAW ALL LABS WITH TROP AT 1647 Performed By: #### H EPACUTE #### [facility] , Hepatitis A Antibody IgM Negative Normal Negative [facility] Comment on above: Order Comment: DRAW ALL LABS WITH TROP AT 1647 Performed By: #### H EPACUTE #### [facility] , Hepatitis B Core Antibody IgM Negative Normal Negative [facility] Comment on above: Order Comment: DRAW ALL LABS WITH TROP AT 1647 Performed By: #### H EPACUTE #### [facility] , Hepatitis C Virus Antibody Non-Reactive Normal Non Reactive [facility] Comment on above: Order Comment: DRAW ALL LABS WITH TROP AT 1647 Performed By: #### H EPACUTE #### [facility] , Interpretation Hepatitis C Normal . [facility] Comment on above: Order Comment: DRAW ALL LABS WITH TROP AT 1647 Result Comment: Not infected with HCV unless early or acute infection is suspected (which may be delayed in an immunocompromised individual), or other evidence exists to indicate HCV infection. Performed at: - [facility] [address] [id number] Digital Librarian: Lee Bob PhD, Phone: [phone] PERFORMED BY: [place] [address] PATHOLOGIST CONSTRUCTION MANAGEMENT ASSISTANT DIANDRA LACY M.D. Performed By: #### H EPACUTE #### [facility] , Hepatitis B virus surface Ag [Presence] in Serum or Plasma by ImmunoassayOrdered By: Alicia Perea on 08-11-2022 HBV surface Ag IA Ql Negative Negative [facility] Hepatitis C virus IgG Ab [Pr esence] in Serum or Plasma by ImmunoassayOrdered By: Alicia Perea on 08-11-2022 HCV IgG IA Ql Non-Reactive Non Reactive [facility] Hepatitis C virus RNA [Units /volume] (viral load) in Serum or Plasma by SAVANNAH with probOrdered By: Alicia Perea on 08-11-2022 HCV RNA SAVANNAH+probe Qn N/A [facility] Hepatitis C virus RNA [log u nits/volume] (viral load) in Serum or Plasma by SAVANNAH withOrdered By: Alicia Perea on 08-11-2022 HCV RNA SAVANNAH+probe [Log units/Vol] N/A [facility] Laboratory - CoagulationOrde red By: Hiral Interiano on 08-11-2022 PT Coag (PPP) [Time] 12.2 s 9.0-12.9 [facility] Lymphocytes/100 WBC Manual c nt (Bld)Ordered By: Hiral Interiano on 08-11-2022 Lymphocytes/100 WBC (Bld) 5 % 18-42 [facility] Microcytes LM Ql (Bld)Ordere d By: Hiral Interiano on 08-11-2022 Microcytes Ql (Bld) Slight [facility] Monocytes/100 WBC Manual cnt (Bld)Ordered By: Hiral Interiano on 08-11-2022 Monocytes/100 WBC (Bld) 1 % 2-11 [facility] No Panel InformationOrdered By: Alicia Perea on 08-11-2022 Hepatitis A IgM Antibody Negative Negative [facility] Hepatitis B Core IgM Antibody Negative Negative [facility] Hepatitis C Interpretation See comment . [facility] Comment on above: Not infected with HC V unless early or acute infection issuspected (which may be delayed in an immunocompromisedindividual), or other evidence exists to indicate HCVinfection.Performed at: - [facility] [id number] Director: Lee Bob PhD, Phone: [phone] Hepatitis C RNA Quantitative N/A [facility] POINT OF CARE GLUCOSEon 07-28 Glucose [Mass/Vol] 132 mg/dL Critically high 74-106 [facility] Comment on above: Performed By: #### T SH, LIPID, T4, FT3, CMP #### [facility] [address] [address] [address] Alicia Patel Glucose [Mass/Vol] 117 mg/dL Critically high 74-106 [facility] Comment on above: Performed By: #### T SH, LIPID, T4, FT3, CMP #### [facility] [address] [address] [address] Alicia Patel Glucose [Mass/Vol] 95 mg/dL Normal 74-106 [facility] Comment on above: Performed By: #### P OCGLUC #### [facility] [address] [place] [address] Dr. Alicia Patel PROF CHEM 8 (BAS METB)on Creatinine [Mass/Vol] 17.89 mg/dL High 0.64-1.27 [facility] Comment on above: Performed By: #### T SH, LIPID, T4, FT3, CMP #### [facility] [address] [place] [address] Dr. Alicia Patel Performed By: #### B MP #### [facility] [address] Anion gap [Moles/Vol] 29.5 mmol/L Normal [facility] Comment on above: Performed By: #### T SH, LIPID, T4, FT3, CMP #### [facility] [address] [address] [address] Alicia Patel Calcium [Mass/Vol] 7.7 mg/dL Critically low 8.5-10.1 [facility] Comment on above: Performed By: #### T SH, LIPID, T4, FT3, CMP #### [facility] [address] [place] [address] Dr. Alicia Patel Chloride [Moles/Vol] 102 mmol/L Normal 98-107 [facility] Comment on above: Performed By: #### T SH, LIPID, T4, FT3, CMP #### [facility] [address] [place] [address] Dr. Alicia Patel CO2 [Moles/Vol] 13.5 mmol/L Critically low 21.0-32.0 [facility] Comment on above: Performed By: #### T SH, LIPID, T4, FT3, CMP #### [facility] [address] [place] [address] Dr. Alicia Patel EGFR-AF SALVADOREAN 3 mL/min/1.73m2 Critically low >=60 [facility] Comment on above: Performed By: #### T SH, LIPID, T4, FT3, CMP #### [facility] [address] [place] [address] Dr. Alicia Patel EGFR-NON AF SALVADOREAN 3 mL/min/1.73m2 Critically low >=60 [facility] Comment on above: Performed By: #### T SH, LIPID, T4, FT3, CMP #### [facility] [address] [place] [address] Dr. Alicia Patel Glucose [Mass/Vol] 105 mg/dL Normal 74-106 [facility] Comment on above: Performed By: #### T SH, LIPID, T4, FT3, CMP #### [facility] [address] [place] [address] Dr. Alicia Patel Potassium [Moles/Vol] 7.0 mmol/L Critically high 3.5-5.1 [facility] Comment on above: Performed By: #### T SH, LIPID, T4, FT3, CMP #### [facility] [address] [place] [address] Dr. Alicia Patel Sodium [Moles/Vol] 138 mmol/L Normal 136-145 [facility] Comment on above: Performed By: #### T SH, LIPID, T4, FT3, CMP #### [facility] [address] [place] [address] Dr. Alicia Patel Urea nitrogen [Mass/Vol] 156.0 mg/dL Critically high 7.0-18.0 [facility] Comment on above: Performed By: #### T SH, LIPID, T4, FT3, CMP #### [facility] [address] [place], [place] [address] Dr. Alicia Patel Urea nitrogen/Creatinine [Mass ratio] 8.7 mg/mg Normal [facility] Comment on above: Performed By: #### T SH, LIPID, T4, FT3, CMP #### [facility] [address] [place], [place] [address] Dr. Alicia Patel Platelet adequacy [Presence] in Blood by Light microscopyOrdered By: Hiral Interiano on 08-11-2022 Platelets LM Ql (Bld) Normal Normal [facility] Platelet morphology finding [Identifier] in BloodOrdered By: Hiral Interiano on 08-11-2022 Platelet morphology finding Nom (Bld) Normal Normal [facility] Platelet poor plasma interna tional normalized ratio (INR) by coagulation assay (relatOrdered By: Hiral Interiano on 08-11-2022 INR Coag (PPP) [Relative time] 1.0 {INR} [facility] Comment on above: INR Therapeutic [...] on 08-11-2022 Poikilocytosis LM Ql (Bld) Slight [facility] Prothrombin Time INRon 08-11 INR Coag (PPP) [Relative time] 1.0 {INR} Normal [facility] Comment on above: Result Comment: [...] 3 - 4.5 PERFORMED BY: [place] [address] PATHOLOGIST CONSTRUCTION MANAGEMENT ASSISTANT DIANDRA LACY M.D. Performed By: #### P T #### [address] PT Coag (PPP) [Time] 12.2 s Normal 9.0-12.9 [facility] Comment on above: Performed By: #### P T #### [address] RBC morphologyOrdered By: Donal Interiano on 08-11-2022 RBC morphology finding Nom (Bld) N/A [facility] Segmented neutrophils/100 WB C Manual cnt (Bld)Ordered By: Hiral Interiano on 08-11-2022 Segmented neutrophils/100 WBC (Bld) 94 % 50-70 [facility] Troponin I High Sensitivityo n 08-11-2022 Troponin I High Sensitivity 42 pg/mL High 0-20 [facility] Comment on above: Result Comment: PERF ORMED BY: [place] [address] PATHOLOGIST CONSTRUCTION MANAGEMENT ASSISTANT DIANDRA LACY M.D. Performed By: #### H S TROP ####[address] Troponin I High Sensitivity 16 pg/mL Normal 0-20 [facility] Comment on above: Result Comment: PERF ORMED BY: [place] [address] PATHOLOGIST CONSTRUCTION MANAGEMENT ASSISTANT DIANDRA LACY M.D. Performed By: #### P T #### [facility] [address] [place] [address] Troponin I.cardiac [Mass/vol ume] in Serum or Plasma by High sensitivity methodOrdered By: Hiral Interiano on 08-11-2022 Troponin I.cardiac High sensitivity method [Mass/Vol] 42 pg/mL 0-20 [facility] URINE MICROSCOPIC ONLYon BACTERIA TRACE Abnormal NONE SEEN [facility] Comment on above: Performed By: #### T SH, LIPID, T4, FT3, CMP #### [facility] [address] [address] [address] Alicia Patel Bacteria identified Cx Nom (U) NOT INDICATED Normal [facility] Comment on above: Performed By: #### T SH, LIPID, T4, FT3, CMP #### [facility] [address] [address] [address] Alicia Patel CAST NONE SEEN Normal NONE SEEN [facility] Comment on above: Performed By: #### T SH, LIPID, T4, FT3, CMP #### [facility] [address] [address] [address] Alicia Patel Crystals LM Nom (Urine sed) NONE SEEN Normal NONE SEEN [facility] Comment on above: Performed By: #### T SH, LIPID, T4, FT3, CMP #### [facility] [address] [address] [address] Alicia Patel Epithelial cells LM Ql (Urine sed) RARE Normal NONE SEEN /RARE [facility] Comment on above: Performed By: #### T SH, LIPID, T4, FT3, CMP #### [facility] [address] [address] [address] Alicia Patel MUCOUS NONE SEEN Normal NONE SEEN [facility] Comment on above: Performed By: #### T SH, LIPID, T4, FT3, CMP #### [facility] [address] [address] [address] Alicia Patel RBC 2-5 Abnormal 0-2 [facility] Comment on above: Performed By: #### T SH, LIPID, T4, FT3, CMP #### [facility] [address] [address] [address] Alicia Patel WBC 2-5 Abnormal NONE SEEN [facility] Comment on above: Performed By: #### T SH, LIPID, T4, FT3, CMP #### [facility] [address] [place] [address] Dr. Alicia Patel XR CHEST 1 Von [...] by: YOGESH BYERS Date: 2022-08-11 04:27 Normal [facility] XR chest 1V portableon 08-11 XR chest 1V portable [facility] [place] [address] [place] [address] XRay Report Signed Patient: Victorino Smyth MR#: [id number] : 1940 Acct:[id number] Age/Sex: 82 / M ADM Date: 08/11/22 Loc: Room: [address] [place] [address] Type: ADM IN Attending Dr: Hiral Interiano [...] Rehan Fuentes M.D.08/11/2022 4:10 PM Dictation Location: [address] [address] Transcribed By: [facility] 08/11/22 1610 Dictated By: Rehan Fuentes DO 08/11/22 1602 Signed By: 08/11/22 1610 [facility] Covid-19 PCR (CVDTBH)on SARS-CoV-2 (COVID-19) RNA SAVANNAH+probe Ql (Unsp spec) Not detected Normal NOT DETECTED [facility] Comment on above: Result Comment: This test is not yet approved or cleared by the [place] FDA. When there are no FDA-approved or cleared tests available, and other criteria are met, FDA can make tests available under an emergency access mechanism called an Emergency Use Authorization (EUA). The EUA for this test is supported by the [employer] of Health and Human Service's (HHS's) declaration [...] T SH, LIPID, T4, FT3, CMP #### [facility] [address] [place] [address] Dr. Alicia Patel INFLUENZA A AND B AGon 08-02 [facility] SEE BELOW Normal [facility] Comment on above: Result Comment: Nega tive for Flu A protein angiten. Infection due to Flu A cannot be ruled out. Flu A angiten in the sample may be below the detection limit of the test. Performed By: #### T SH, LIPID, T4, FT3, CMP #### [facility] [address] [place] [address] Dr. Alicia Patel [facility] SEE BELOW Normal [facility] Comment on above: Result Comment: Nega tive for Flu B protein antigen. Infection due to Flu B cannot be ruled out. Flu B antigen in the sample may be below the detection limit of the test. Performed By: #### T SH, LIPID, T4, FT3, CMP #### [facility] [address] [place] [address] Dr. Alicia Patel INFLUENZA A AG Negative Normal NEGATIVE SEE COMMENT [facility] Comment on above: Performed By: #### T SH, LIPID, T4, FT3, CMP #### [facility] [address] [place] [address] Dr. Alicia Patel INFLUENZA B AG Negative Normal NEGATIVE SEE COMMENT [facility] Comment on above: Performed By: #### T SH, LIPID, T4, FT3, CMP #### [facility] [address] [place] [address] Dr. Alicia Patel PTH INTACTon 05-25-2022 PTH, Intact 47 pg/mL Normal 15-65 [facility] Comment on above: Performed By: #### T SH, LIPID, T4, FT3, CMP #### [facility] [address] [place] [address] Dr. Alicia Patel ALBUMINon 05-24-2022 Albumin [Mass/Vol] 3.9 g/dL Normal 3.4-5.0 [facility] Comment on above: Performed By: #### T SH, LIPID, T4, FT3, CMP #### [facility] [address] [place] [address] Dr. Alicia Patel HEMOGRAM AND PLATELon 2021 Hematocrit (Bld) [Volume fraction] 42.1 % Normal 42.0-54.0 [facility] Comment on above: Performed By: #### T SH, LIPID, T4, FT3, CMP #### [facility] [address] [place] [address] Dr. Alicia Patel Hemoglobin (Bld) [Mass/Vol] 14.7 g/dL Normal 14.0-18.0 [facility] Comment on above: Performed By: #### T SH, LIPID, T4, FT3, CMP #### [facility] [address] [place] [address] Dr. Alicia Patel MCH (RBC) [Entitic mass] 33.2 pg Normal 25.9-34.0 [facility] Comment on above: Performed By: #### T SH, LIPID, T4, FT3, CMP #### [facility] [address] [place] [address] Dr. Alicia Patel MCHC (RBC) [Mass/Vol] 34.9 g/dL Normal 29.9-35.2 [facility] Comment on above: Performed By: #### T SH, LIPID, T4, FT3, CMP #### [facility] [address] [place] [address] Dr. Alicia Patel MCV (RBC) [Entitic vol] 95.0 fL Critically high 80.0-94.0 [facility] Comment on above: Performed By: #### T SH, LIPID, T4, FT3, CMP #### [facility] [address] [place] [address] Dr. Alicia Patel PLT 190 103/ul Normal 150-450 [facility] Comment on above: Performed By: #### T SH, LIPID, T4, FT3, CMP #### [facility] [address] [place] [address] Dr. Alicia Patel RBC 4.43 106/ul Critically low 4.70-6.10 [facility] Comment on above: Performed By: #### T SH, LIPID, T4, FT3, CMP #### [facility] [address] [place] [address] Dr. Alicia Patel WBC 7.0 103/ul Normal 4.0-11.0 [facility] Comment on above: Performed By: #### T SH, LIPID, T4, FT3, CMP #### [facility] [address] [place] [address] Dr. Alicia Patel MAGNESIUMon 05-24-2022 Magnesium [Mass/Vol] 1.7 mg/dL Critically low 1.8-2.4 [facility] Comment on above: Performed By: #### T SH, LIPID, T4, FT3, CMP #### [facility] [address] [place] [address] Dr. Alicia Patel PHOSPHORUSon 05-24-2022 Phosphate [Mass/Vol] 3.7 mg/dL Normal 2.6-4.7 [facility] Comment on above: Performed By: #### T SH, LIPID, T4, FT3, CMP #### [facility] [address] [place] [address] Dr. Alicia Patel PROF CHEM 8 (BAS METB)on Anion gap [Moles/Vol] 11.2 mmol/L Normal [facility] Comment on above: Performed By: #### U RTPCR #### [facility] [address] [address] [address] Alicia Patel Calcium [Mass/Vol] 9.1 mg/dL Normal 8.5-10.1 [facility] Comment on above: Performed By: #### U RTPCR #### [facility] [address] [address] [address] Alicia Patel Chloride [Moles/Vol] 104 mmol/L Normal 98-107 [facility] Comment on above: Performed By: #### U RTPCR #### [facility] [address] [address] [address] Alicia Patel CO2 [Moles/Vol] 29.2 mmol/L Normal 21.0-32.0 [facility] Comment on above: Performed By: #### U RTPCR #### [facility] [address] [address] [address] Alicia Patel Creatinine [Mass/Vol] 1.40 mg/dL Critically high 0.70-1.30 [facility] Comment on above: Performed By: #### U RTPCR #### [facility] [address] [address] [address] Alicia Patel EGFR-AF SALVADOREAN 59 mL/min/1.73m2 Critically low >=60 [facility] Comment on above: Performed By: #### U RTPCR #### [facility] [address] [address] [address] Alicia Patel EGFR-NON AF SALVADOREAN 49 mL/min/1.73m2 Critically low >=60 [facility] Comment on above: Performed By: #### U RTPCR #### [facility] [address] [address] [address] Alicia Patel Glucose [Mass/Vol] 148 mg/dL Critically high 74-106 [facility] Comment on above: Performed By: #### U RTPCR #### [facility] [address] [address] [address] Alicia Patel Potassium [Moles/Vol] 4.4 mmol/L Normal 3.5-5.1 [facility] Comment on above: Performed By: #### U RTPCR #### [facility] [address] [address] [address] Alicia Patel Sodium [Moles/Vol] 140 mmol/L Normal 136-145 [facility] Comment on above: Performed By: #### U RTPCR #### [facility] [address] [place] [address] Dr. Alicia Patel Urea nitrogen [Mass/Vol] 16.0 mg/dL Normal 7.0-18.0 [facility] Comment on above: Performed By: #### U RTPCR #### [facility] [address] [place] [address] Dr. Alicia Patel Urea nitrogen/Creatinine [Mass ratio] 11.4 mg/mg Normal [facility] Comment on above: Performed By: #### U RTPCR #### [facility] [address] [place] [address] Dr. Alicia Patel UA RANDOM W/MICROSCOPICon BACTERIA NONE SEEN Normal NONE SEEN [facility] Comment on above: Performed By: #### T SH, LIPID, T4, FT3, CMP #### [facility] [address] [place] [address] Dr. Alicia Patel Bilirubin Ql (U) Negative Normal NEGATIVE [facility] Comment on above: Performed By: #### T SH, LIPID, T4, FT3, CMP #### [facility] [address] [place] [address] Dr. Alicia Patel CAST NONE SEEN Normal NONE SEEN [facility] Comment on above: Performed By: #### T SH, LIPID, T4, FT3, CMP #### [facility] [address] [place] [address] Dr. Alicia Patel Clarity (U) CLEAR Normal CLEAR [facility] Comment on above: Performed By: #### T SH, LIPID, T4, FT3, CMP #### [facility] [address] [address] [address] Alicia Patel Color (U) LT. YELLOW Normal YELLOW [facility] Comment on above: Performed By: #### T SH, LIPID, T4, FT3, CMP #### [facility] [address] [address] [address] Alicia Patel Crystals LM Nom (Urine sed) NONE SEEN Normal NONE SEEN [facility] Comment on above: Performed By: #### T SH, LIPID, T4, FT3, CMP #### [facility] [address] [address] [address] Alicia Patel Epithelial cells LM Ql (Urine sed) FEW Abnormal NONE SEEN /RARE [facility] Comment on above: Performed By: #### T SH, LIPID, T4, FT3, CMP #### [facility] [address] [place] [address] Dr. Alicia Patel Glucose Ql (U) Negative Normal NEGATIVE [facility] Comment on above: Performed By: #### T SH, LIPID, T4, FT3, CMP #### [facility] [address] [place] [address] Dr. Alicia Patel Hemoglobin Ql (U) Negative Normal NEGATIVE [facility] Comment on above: Performed By: #### T SH, LIPID, T4, FT3, CMP #### [facility] [address] [place] [address] Dr. Alicia Patel Ketones Ql (U) Negative Normal NEGATIVE [facility] Comment on above: Performed By: #### T SH, LIPID, T4, FT3, CMP #### [facility] [address] [place] [address] Dr. Alicia Patel LEUKOCYTES Negative Normal NEGATIVE [facility] Comment on above: Performed By: #### T SH, LIPID, T4, FT3, CMP #### [facility] [address] [address] [address] Alicia Patel MUCOUS NONE SEEN Normal NONE SEEN [facility] Comment on above: Performed By: #### T SH, LIPID, T4, FT3, CMP #### [facility] [address] [place] [address] Dr. Alicia Patel Nitrite Ql (U) Negative Normal NEGATIVE [facility] Comment on above: Performed By: #### T SH, LIPID, T4, FT3, CMP #### [facility] [address] [place] [address] Dr. Alicia Patel pH (U) 5.5 [pH] Normal 5-9 [facility] Comment on above: Performed By: #### T SH, LIPID, T4, FT3, CMP #### [facility] [address] [place] [address] Dr. Alicia Patel RBC NONE SEEN Abnormal 0-2 [facility] Comment on above: Performed By: #### T SH, LIPID, T4, FT3, CMP #### [facility] [address] [place] [address] Dr. Alicia Patel SPEC GRAVITY 1.020 Normal 1.005-<=1. 025 [facility] Comment on above: Performed By: #### T SH, LIPID, T4, FT3, CMP #### [facility] [address] [place] [address] Dr. Alicia Patel UA PROTEIN Negative Normal NEGATIVE/ TRACE [facility] Comment on above: Performed By: #### T SH, LIPID, T4, FT3, CMP #### [facility] [address] [place] [address] Dr. Alicia Patel Urobilinogen Qn (U) 0.2 {Wil'U}/dL Normal 0.2 - 1. 0 [facility] Comment on above: Performed By: #### T SH, LIPID, T4, FT3, CMP #### [facility] [address] [place] [address] Dr. Alicia Patel WBC NONE SEEN Normal NONE SEEN [facility] Comment on above: Performed By: #### T SH, LIPID, T4, FT3, CMP #### [facility] [address] [place] [address] Dr. Alicia Patel URIC ACID SERUMon 05-24-2022 Urate [Mass/Vol] 5.6 mg/dL Normal 3.5-7.2 [facility] Comment on above: Performed By: #### T SH, LIPID, T4, FT3, CMP #### [facility] [address] [address] [address] Alicia Patel URINE T PROTEIN CREAT RATIOo n 05-24-2022 Protein (U) [Mass/Vol] 26.0 mg/dL Critically high <=12.0 [facility] Comment on above: Performed By: #### T SH, LIPID, T4, FT3, CMP #### [facility] [address] [address] [address] Alicia Patel UR PROT CREAT RAT 0.34 Normal [facility] Comment on above: Performed By: #### T SH, LIPID, T4, FT3, CMP #### [facility] [address] [address] [address] Alicia Patel URINE CREAT 77.39 mg/dL Normal 20.00-300. 00 [facility] Comment on above: Performed By: #### T SH, LIPID, T4, FT3, CMP #### [facility] [address] [address] [address] Alicia Patel Vital Signs Date Time Vital Sign Value Performing Clinician Facility 06-14-2023 11:00-0500 Body height 175.26 cm Alicia Brit Other [facility] Other 06-14-2023 11:00-0500 Body mass index (BMI) [Ratio] 38.51 kg/m2 Alicia Brit Other [facility] Other 06-14-2023 11:00-0500 Body temperature 97.2 [degF] Alicia Brit Other [facility] Other 06-14-2023 11:00-0500 Body weight 118.3 kg Alicia Brit Other [facility] Other 06-14-2023 11:00-0500 Diastolic blood pressure 72 mm[Hg] Alicia Brit Other [facility] Other 06-14-2023 11:00-0500 Respiratory rate 18 /min Laicia Brit Other [facility] Other 06-14-2023 11:00-0500 SaO2% (BldA) [Mass fraction] 95 % Alicia Brit Other [facility] Other 06-14-2023 11:00-0500 Systolic blood pressure 122 mm[Hg] Alicia Brit Other [facility] Other 11-29-2022 10:20-0400 Body height 175.26 cm Alicia Brit Other [facility] Other 11-29-2022 10:20-0400 Body mass index (BMI) [Ratio] 36.77 kg/m2 Alicia Brit Other [facility] Other 11-29-2022 10:20-0400 Body temperature 96.3 [degF] Alicia Brit Other [facility] Other 11-29-2022 10:20-0400 Body weight 112.95 kg Alicia Brit Other [facility] Other 11-29-2022 10:20-0400 Diastolic blood pressure 72 mm[Hg] Alicia Brit Other [facility] Other 11-29-2022 10:20-0400 Respiratory rate 18 /min Alicia Brit Other [facility] Other 11-29-2022 10:20-0400 SaO2% (BldA) [Mass fraction] 96 % Alicia Brit Other [facility] [employer] Other 11-29-2022 10:20-0400 Systolic blood pressure 137 mm[Hg] Alicia Brit Other [facility] [employer] Other 10-07-2022 17:25-0400 Heart rate 66 /min Ni OLIVARES [facility] 10-07-2022 17:25-0400 SaO2% (BldA) [Mass fraction] 92 % Ni OLIVARES [facility] 10-07-2022 17:25-0400 Respiratory rate 16 /min Ni OLIVARES [facility] 10-07-2022 17:24-0400 Body temperature 97.7 [degF] Ni OLIVARES [facility] 10-07-2022 17:24-0400 Diastolic blood pressure 74 mm[Hg] Ni OLIVARES [facility] 10-07-2022 17:24-0400 Mean blood pressure 106 mm[Hg] Ni OLIVARES [facility] 10-07-2022 17:24-0400 Systolic blood pressure 170 mm[Hg] Ni OLIVARES [facility] 10-07-2022 16:18-0400 Heart rate 61 /min Ni OLIVARES [facility] 10-07-2022 16:18-0400 SaO2% (BldA) [Mass fraction] 95 % Ni COOK [facility] 10-07-2022 16:17-0400 Diastolic blood pressure 81 mm[Hg] [facility] 10-07-2022 16:17-0400 Mean blood pressure 103 mm[Hg] Ni COOK [facility] 10-07-2022 16:17-0400 Systolic blood pressure 148 mm[Hg] Ni COOK [facility] 10-07-2022 16:17-0400 Respiratory rate 16 /min Ni COOK [facility] 10-07-2022 16:11-0400 Diastolic blood pressure 75 mm[Hg] Ni COOK [facility] 10-07-2022 16:11-0400 Heart rate 58 /min Ni COOK [facility] 10-07-2022 16:11-0400 Mean blood pressure 98 mm[Hg] Ni COOK [facility] 10-07-2022 16:11-0400 Respiratory rate 17 /min Ni COOK [facility] 10-07-2022 16:11-0400 SaO2% (BldA) [Mass fraction] 97 % Ni COOK [facility] 10-07-2022 16:11-0400 Systolic blood pressure 144 mm[Hg] Ni COOK [facility] 10-07-2022 16:00-0400 Mean blood pressure 92 mm[Hg] Ni COOK [facility] 10-07-2022 16:00-0400 Respiratory rate 13 /min Ni COOK [facility] 10-07-2022 15:55-0400 Mean blood pressure 86 mm[Hg] Ni COOK [facility] 10-07-2022 15:55-0400 Respiratory rate 17 /min Ni COOK [facility] 10-07-2022 15:46-0400 Body temperature 98.06 [degF] Ni OLIVARES [facility] 10-07-2022 15:40-0400 Respiratory rate 15 /min Ni OLIVARES [facility] 10-07-2022 10:14-0400 Mean blood pressure 97 mm[Hg] Ni OLIVARES [facility] 10-07-2022 10:14-0400 Blood Pressure Location Ni OLIVARES [facility] 10-07-2022 10:13-0400 Heart rate 64 /min Ni OLIVARES [facility] 10-07-2022 10:12-0400 Body temperature 98.06 [degF] Ni OLIVARES [facility] 10-07-2022 10:12-0400 Blood Pressure Location Ni OLIVARES [facility] 09-15-2022 14:40-0400 Body height 175.26 cm Alicia Brit Other [facility] [employer] Other 09-15-2022 14:40-0400 Body mass index (BMI) [Ratio] 37.48 kg/m2 Alicia Brit Other [facility] Other 09-15-2022 14:40-0400 Body weight 115.12 kg Alicia Brit Other [facility] Other 09-15-2022 14:40-0400 Diastolic blood pressure 73 mm[Hg] Alicia Brit Other [facility] Other 09-15-2022 14:40-0400 Respiratory rate 18 /min Alicia Brit Other [facility] [employer] Other 09-15-2022 14:40-0400 SaO2% (BldA) [Mass fraction] 97 % Alicia Brit Other [facility] [employer] Other 09-15-2022 14:40-0400 Systolic blood pressure 138 mm[Hg] Alicia Brit Other [facility] [employer] Other 09-06-2022 10:01-0400 Blood Pressure Location [facility] [employer] [facility] 09-06-2022 10:01-0400 Diastolic blood pressure 70 mm[Hg] [employer] [facility] 09-06-2022 10:01-0400 Heart rate 68 /min [facility] [employer] [facility] [facility] 09-06-2022 10:01-0400 Systolic blood pressure 132 mm[Hg] [facility] [employer] [facility] 08-15-2022 12:16-0500 Body temperature 97.8 [degF] MD Tray Alfaro Work Phone: [facility] 08-15-2022 12:16-0500 Diastolic blood pressure 92 mm[Hg] MD Tray Alfaro Work Phone: [facility] 08-15-2022 12:16-0500 Heart rate 68 /min MD Tray Alfaro Work Phone: [facility] 08-15-2022 12:16-0500 Respiratory rate 18 /min MD Tray Alfaro Work Phone: [facility] 08-15-2022 12:16-0500 SaO2% (BldA) [Mass fraction] 95 % MD Tray Alfaro Work Phone: [facility] 08-15-2022 12:16-0500 Systolic blood pressure 146 mm[Hg] MD Tray Alfaro Work Phone: [facility] 08-15-2022 05:08-0500 Body weight 118.2 kg MD Tray Alfaro Work Phone: [facility] 08-13-2022 13:10-0500 Inhaled oxygen flow rate 8 L/min MD Tray Alfaro Work Phone: [facility] 08-13-2022 11:54-0500 Body height 177.8 cm MD Tray Alfaro Work Phone: [facility] 08-13-2022 11:54-0500 Body mass index (BMI) [Ratio] 37.3 kg/m2 MD Tray Alfaro Work Phone: [facility] 06-01-2022 11:40-0500 Body height 175.26 cm Alicia Brit Other [facility] Other 06-01-2022 11:40-0500 Body mass index (BMI) [Ratio] 37.77 kg/m2 Alicia Brit Other [facility] Other 06-01-2022 11:40-0500 Body temperature 97.5 [degF] Alicia Brit Other [facility] Other 06-01-2022 11:40-0500 Body weight 116.03 kg Alicia Brit Other [facility] Other 06-01-2022 11:40-0500 Diastolic blood pressure 71 mm[Hg] Alicia Brit Other [facility] Other 06-01-2022 11:40-0500 Respiratory rate 18 /min Alicia Brit Other [facility] Other 06-01-2022 11:40-0500 SaO2% (BldA) [Mass fraction] 93 % Alicia Brit Other [facility] Other 06-01-2022 11:40-0500 Systolic blood pressure 134 mm[Hg] Alicia Brit Other [facility] Other 11-24-2021 11:20-0400 Body height 175.26 cm Alicia Brit Other [facility] Other 11-24-2021 11:20-0400 Body mass index (BMI) [Ratio] 36.26 kg/m2 Alicia Brit Other [facility] Other 11-24-2021 11:20-0400 Body temperature 96.4 [degF] Alicia Brit Other [facility] Other 11-24-2021 11:20-0400 Body weight 111.4 kg Alicia Brit Other [facility] Other 11-24-2021 11:20-0400 Diastolic blood pressure 72 mm[Hg] Alicia Brit Other [facility] Other 11-24-2021 11:20-0400 Respiratory rate 18 /min Alicia Brit Other [facility] Other 11-24-2021 11:20-0400 SaO2% (BldA) [Mass fraction] 95 % Alicia Brit Other [facility] Other 11-24-2021 11:20-0400 Systolic blood pressure 139 mm[Hg] Alicia Brit Other [facility] Other 10-26-2021 09:17-0400 Blood Pressure Location Milton BRAUN [facility] 10-26-2021 09:17-0400 Diastolic blood pressure 69 mm[Hg] Milton BRAUN [facility] 10-26-2021 09:17-0400 Heart rate 64 /min Milton BRAUN [facility] 10-26-2021 09:17-0400 Respiratory rate 16 /min Milton BRAUN [facility] 10-26-2021 09:17-0400 Systolic blood pressure 139 mm[Hg] Milton BRAUN [facility] 05-26-2021 11:00-0500 Body height 175.26 cm Alicia Brit Other [facility] Other 05-26-2021 11:00-0500 Body mass index (BMI) [Ratio] 34.4 kg/m2 Alicia Brit Other [facility] Other 05-26-2021 11:00-0500 Body temperature 96.9 [degF] Alicia Brit Other [facility] Other 05-26-2021 11:00-0500 Body weight 105.69 kg Alicia Brit Other [facility] Other 05-26-2021 11:00-0500 Diastolic blood pressure 80 mm[Hg] Alicia Brit Other [facility] Other 05-26-2021 11:00-0500 Respiratory rate 18 /min Alicia Brit Other [facility] Other 05-26-2021 11:00-0500 SaO2% (BldA) [Mass fraction] 94 % Alicia Brit Other [facility] Other 05-26-2021 11:00-0500 Systolic blood pressure 136 mm[Hg] Alicia Brit Other [facility] Other Encounters Encounter Date Encounter Type Care Provider Facility Start: 06-12-2024 ambulatory Ni OLIVARES Facility :[facility] Start: 07-02-2023 End: 07-02-2023 ambulatory Ni Olivares Facility:[facility] Start: 07-02-2023 End: 07-02-2023 ambulatory MD Tray Alfaro Work Phone: [facility] Work Phone: Start: 07-02-2023 End: 07-02-2023 Patient encounter procedure MD Tray Alfaro Work Phone: [facility] [place] Work Phone: Start: 06-28-2023 End: 06-28-2023 ambulatory Ni Olivares Facility:[facility] Start: 06-28-2023 End: 06-28-2023 ambulatory MD Tray Alfaro Work Phone: [facility] Work Phone: Start: 06-28-2023 End: 06-28-2023 Patient encounter procedure MD Tray Alfaro Work Phone: [facility] [place] Work Phone: Start: 06-16-2023 End: 06-16-2023 ambulatory Ni Olivares Facility:[facility] Start: 06-16-2023 End: 06-16-2023 ambulatory MD Tray Alfaro Work Phone: [facility] Work Phone: Start: 06-16-2023 End: 06-16-2023 Patient encounter procedure MD Tray Alfaro Work Phone: [facility] [place] Work Phone: Start: 06-14-2023 Office outpatient vi sit 25 minutes Alicia Brit [facility] Start: 06-14-2023 End: 06-15-2023 ambulatory Ni OLIVARES [place] [employer] Other Start: 06-14-2023 End: 06-14-2023 Patient encounter procedure Ni OLIVARES [facility] Start: 01-26-2023 End: 01-26-2023 ambulatory [facility] Start: 12-20-2022 End: 12-21-2022 ambulatory Ni OLIVARES Facility:[facility] Start: 12-20-2022 End: 12-20-2022 Patient encounter procedure Ni OLIVARES [facility] Start: 12-02-2022 End: 12-02-2022 ambulatory Ni OLIVARES Facility:[facility] Start: 11-29-2022 End: 11-29-2022 ambulatory Alicia Brit Other [facility] [employer] Other Start: 11-29-2022 Office outpatient vi sit 25 minutes Alicia Brit [facility] Start: 11-18-2022 End: 11-19-2022 ambulatory MD ALICIA PEREA Facility:[facility] Start: 11-18-2022 End: 11-19-2022 ambulatory Ni OLIVARES Facility:[facility] Start: 11-17-2022 End: 11-17-2022 ambulatory [facility] Start: 11-17-2022 End: 11-17-2022 Encounter for preprocedural cardiovascular examination [facility] Start: 11-10-2022 End: 11-24-[address] TRAY ALFARO . Facility: Start: 11-08-2022 End: 11-08-[address] TRAY ALFARO . Facility: Start: 11-06-2022 End: 11-07-[address] TRAY ALFARO . Facility: Start: 10-29-2022 End: 10-30-2022 ambulatory Milton BRAUN Facility:[facility] Start: 10-29-2022 End: 10-29-2022 Patient encounter procedure Milton BRAUN [facility] Start: 10-26-2022 End: 10-27-2022 ambulatory IRIS CORONEL Facility: Start: 10-22-2022 End: 10-23-[address] MILTON BRAUN . Facility: Start: 10-15-2022 End: 10-16-[address] TRAY ALFARO . Facility: Start: 10-14-2022 End: 10-15-2022 ambulatory IRIS CORONEL Facility: Start: 10-14-2022 End: 10-14-2022 ambulatory [facility] Start: 10-07-2022 End: 10-07-2022 ambulatory Ni OLIVARES Facility:[facility] Start: 10-07-2022 End: 10-07-2022 Admission to same day surgery center Ni OLIVARES [facility] Start: 09-15-2022 End: 09-15-2022 ambulatory Alicia Perea Other [facility] Other Start: 09-15-2022 Office outpatient vi sit 25 minutes Alicia Brit [facility] Start: 09-14-2022 End: 09-15-2022 ambulatory Ni OLIVARES Facility:[id number] Start: 09-13-2022 End: 09-14-2022 ambulatory ALICIA BRIT Facility:[facility] Start: 09-06-2022 End: 09-07-2022 ambulatory Ni LOIVARES Facility:[facility] [place] Start: 09-06-2022 End: 09-06-2022 Patient encounter procedure Ni OLIVARES [facility] [place] Start: 09-01-2022 End: 09-02-[address] NI OLIVARES Facility:[facility] Start: 08-31-2022 End: 08-31-2022 ambulatory Tray Alfaro Facility:[facility] Start: 08-24-2022 End: 08-25-[address] TRAY ALFARO . Facility:[facility] Start: 08-22-2022 End: 08-22-[address] TRAY ALFARO . Facility:[facility] Start: 08-21-2022 End: 08-22-[address] TRAY ALFARO . Facility:[facility] Start: 08-18-2022 End: 08-19-2022 ambulatory ALICIA PURDYDIR Facility:[facility] Start: 08-16-2022 ambulatory Ni OLIVARES Facility:[facility] [place] Start: 08-11-2022 ambulatory Facility:[facility] Start: 08-11-2022 Patient encounter status MD Iglesias Work Phone: [facility] Start: 08-11-2022 Encounter for preprocedural cardiovascular examination Hiral Interiano [facility] Start: 08-11-2022 End: 08-15-2022 Evaluation and management of inpatient Gita Mischler Facility:[facility] Start: 08-11-2022 End: 08-15-2022 Encounter for preprocedural cardiovascular examination MD Tray Alfaro Work Phone: [facility] Start: 08-11-2022 End: 08-15-2022 Evaluation and management of inpatient MD Tray Alfaro Work Phone: [facility] Work Phone: Start: 08-11-2022 End: 08-14-2022 ambulatory THADDEUS DAUGHERTY Facility:[facility] Start: 08-02-2022 End: 08-02-[address] TRAY ALFARO . Facility:[facility] Start: 07-08-2022 End: 07-23-[address] TRAY ALFARO . Facility:[facility] Start: 06-01-2022 End: 06-01-2022 ambulatory Alicia Brit Other [facility] Other Start: 06-01-2022 Office outpatient vi sit 25 minutes Alicia Brit [facility] Start: 05-24-2022 End: 05-25-2022 ambulatory ALICIA BRIT Facility:[facility] Start: 02-03-2022 End: 02-04-[address] TRAY ALFARO . Facility:[facility] Start: 11-24-2021 End: 11-24-2021 ambulatory Alicia Brit Other [place] [employer] Other Start: 11-24-2021 Office outpatient vi sit 25 minutes Alicia Brit [facility] Start: 10-26-2021 End: 10-26-2021 Patient encounter procedure Milton BRAUN [facility] Start: 05-26-2021 End: 05-26-2021 ambulatory Alicia Brit Other [place] [employer] Other Start: 05-26-2021 Office outpatient vi sit [...] T SH, LIPID, T4, FT3, CMP #### [facility] [address] [address] [address] Alicia Patel Start: 10-07-2022 Extracorporeal shock wave lithotripsy of calculus of kidney Ni OLIVARES Start: 08-21-2022 PSA screening ALICIA QAD IR Comment on above: Performed By: #### P SAD #### [facility] [address] [address] [address] Alicia Patel Start: 08-13-2022 Cystoscopy MD Tray Alfaro Work Phone: Start: 08-11-2022 Plain chest X-ray MD Iglesias Work Phone: Start: 08-01-2019 Transurethral prostatectomy Milton BRAUN Start: 07-04-2019 Biopsy of prostate Patr humaira KADE Start: 06-27-2019 cystoscopy, bilatera l, ureteroscopy, laser lithotripsy Milton BRAUN ear surgery Milton BRAUN ear surgery Ni OLIVARES Plan of Treatment Date Care Activity Detail Author Start: 08-15-2022 [facility] Start: 08-14-2022 Microbial culture of sputum [facility] Start: 08-14-2022 Aerobic Culture Aerobic Culture [facility] Start: 08-14-2022 Investigation of tra nsfusion reaction Gram Stain [facility] Start: 08-11-2022 Hospital admission [facility] Start: 08-11-2022 Referral to pet sitter [facility] Start: 08-11-2022 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 [facility] Start: 08-11-2022 Referral to urologist [facility] CT Chest WO contrast [facility] Patient referral [facility] Work Phone: Renal function 2000 panel - Serum or Plasma [facility] Immunizations Immunization Date Immunization Notes Care Provider Fa cility 05-02-2023 pneumococcal 20-marco nt conjugate vaccine Ni OLIVARES [facility] 05-02-2023 tetanus toxoid, redu martha diphtheria toxoid, and acellular pertussis vaccine, adsorbed Ni OLIVARES [facility] 03-29-2022 SARS-CoV-2 (COVID-19 ) [id number] Ni OLIVARES [facility] 05-18-2021 SARS-CoV-2 (COVID-19 ) Ad26 vaccine, recombinant Ni OLIVARES [facility] 03-30-2021 influenza virus vaccine, unspecified formulation Ni OLIVARES [facility] 09-01-2020 SARS-CoV-2 (COVID-19 ) Ad26 vaccine, recombinant Ni OLIVARES [facility] 06-27-2020 SARS-CoV-2 (COVID-19 ) Ad26 vaccine, recombinant Milton BRAUN [facility] [place] 04-18-2020 influenza virus vaccine, unspecified formulation Ni OLIVARES [facility] 02-05-2020 zoster vaccine recombinant Ni OLIVARES [facility] 12-06-2019 zoster vaccine recombinant Ni OLIVARES [facility] 04-04-2019 influenza virus vaccine, unspecified formulation Milton BRAUN [facility] [place] 04-05-2017 influenza virus vaccine, unspecified formulation Ni OLIVARES [facility] 04-05-2017 pneumococcal conjuga te vaccine, 13 valent Ni OLIVARES [facility] 04-12-2016 influenza, unspecifi ed formulation Ni OLIVARES [facility] Payers Date Payer Category Payer Medicare [id number] 2022 Self-pay [id number] 1959 Private Health Insurance [id number] 1959 Private Health Insurance [id number] 1942 Unknown [id number] 1942 Unknown [id number] 1942 Unknown [id number] 1942 Unknown [id number] 1942 Unknown [id number] 1942 Unknown [id number] 023 Unknown [id number] 1942 Unknown [id number] 1942 Unknown [id number] 2.16.840.1.866866.3.579.2.593 1940 Unknown [id number] 2.16.840.1.609615.3.579.2.593 1940 Unknown [id number] 2.16.840.1.432243.3.579.2.593 1942 Unknown [id number] 2.16.840.1.239570.3.579.2.593 1942 Unknown [id number] 2.16.840.1.586834.3.579.2.593 1942 Unknown [id number] 2.16.840.1.312103.3.579.2.593 1942 Unknown [id number] 2.16.840.1.787923.3.579.2.593 1942 Unknown [id number] 2.16.840.1.874706.3.579.2.593 1942 Unknown [id number] 2.16.840.1.327907.3.579.2.593 1942 Unknown [id number] 2.16.840.1.982100.3.579.2.593 1942 Unknown [id number] 2.16.840.1.359044.3.579.2.593 1942 Unknown [id number] 2.16.840.1.039959.3.579.2.593 1942 Unknown [id number] 2.16.840.1.637482.3.579.2.727 1942 Unknown [id number] 2.16.840.1.990153.3.579.2.727 1942 Unknown [id number] 2.16.840.1.130169.3.579.2. 1942 Unknown [id number] 2.16.840.1.547305.3.579.2.72 1942 Unknown [id number] 2.16.840.1.573222.3.579.2. 1942 Unknown [id number] 2.16.840.1.960301.3.579.2.72 1942 Unknown [id number] 2.16.840.1.734366.3.579.2. 1942 Unknown [id number] 2.16.840.1.659328.3.579.2. 1942 Unknown [id number] 2.16.840.1.932596.3.579.2.72 1942 Unknown [id number] 2.16.840.1.678790.3.579.2. 1940 Unknown [id number] 2.16.840.1.624671.3.579.2.72 Medicare [id number] 2.16.8 40.1.790050.19 Medicare [id number] 2.1 6.840.1.972695.[address] [place] BC/BS [id number] Unknown [id number] 2.16.840.1.787762.3.579.2.531 Unknown [id number] 2.16.840.1.085464.3.579.2.531 Unknown [id number] 2.16.840.1.678890.3.579.2.531 Unknown [id number] 2.16.840.1.620299.3.579.2.531 Unknown [id number] 2.16.840.1.409065.3.579.2.531 Social History Date Type Detail Facility Start: 08-18-2020 End: 08-13-2022 Tobacco smoking status Ex-smoker (finding) [facility] [employer] Other Comment on above: quit in [address] [facility] [employer] Other Start: 1940 Sex Assigned At Male [facility] Tobacco smoking status Never [facility] Comment on above: quit in 1978 Medical Equipment Procedure Code Equipment Code Equipment Origin al Text Equipment Identifier Dates Cystoscopy, with ureteral calculus manipulation and stent placement Polymeric ureteral stent [id number] FDA Start: 06-15-2019 Cystoscopy, with ureteral calculus manipulation and stent placement Polymeric ureteral stent ()[id number] FDA Start: 06-15-2019 Cystoscopy, with ureteral calculus manipulation and stent placement Polymeric ureteral stent ()[id number] FDA Start: 08-13-2022 Biopsy, prostate, with US guidance Polymeric ureteral stent ()[id number] FDA Start: 07-04-2019 CYSTOSCOPY URETEROSCOPY Ni OLIVARES MD 12/02/22 Unknown Ureter R {[id number] FDA Start: 12-02-2022 Goals Date Patient Goal Desired Activity /State Functional Status Date Assessment Result Facility 12-20-2022 Functional Status N/A [facility] 09-06-2022 Functional Status N/A [facility] 08-15-2022 Functional status Patient at Baseline [facility] Work Phone: Mental Status Date Assessment Result Facility 08-15-2022 Cognitive function Cognitive Sta tus Patient at Baseline [facility] Work Phone: Clinical Notes 05-26-2021 to 06-14-2023 Note Date & Type Note Facility 06-14-2023 Evaluation note Encounter Date Diagnosis Assessment Notes May, 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 [employer] Other [id number] Hospital Discharge instructions Patient Education 06/14/2023 09:44:12 [...] include: ?8 oz (237 mL) of milk, ocudpqg-yzooopanryqe-ghrue milk, and calcium- fortifiedfruit juice. Calcium-fortified means [...] ?Spinach (cooked), rhubarb, beets, sweet potatoes, and Samoan chard. ?Peanuts. ?Potato chips, greek fries, and baked potatoes with skin on. ?Nuts and nut products. ?Chocolate. If you regularly take a diuretic medicine, make sure to eat at least 1 or 2 servings of fruits or vegetables that are high in potassium each day. These include: ?Avocado. ?Banana. ?[place], prune, carrot, or tomato juice. ?Baked potato. [...] magnesium, fish oil, or vitamin B6. Take hsfj-dup-pvcctwp and prescription medicines only as told by [...] Casseroles. Pizza. Lasagna. Frozen meals. Potato chips. [place] Citizen fries. The items listed above may not [...] provider. Document Revised: 09/23/2022 Document Reviewed: 09/23/2022 [employer] Patient Education 2022 [employer]. Follow Up Care 02/04/2023 14:47:08 With:CARLOS OLIVEROS, Ni Garcia, URL Address: [address] [place] [address] [place], [place] [id number]- When: Unknown [facility] [place] [id number] NoteUT Cardiology - [facility] Subjective Victorino Smyth is a 82 [...] March of 2013, and then developed acute NJ related to ISR of the LAD stent on 09/28/2016 and underwent emergent Promus JOSE RAMON stent to the LAD at [facility], was on Brilinta but currently on aspirin [...] Disp: , Rfl: liothyronine (more content not included)...[facility] 12-21-2022 [id number]:127[facility]06-26-2023 NoteCystoscopy with Stent Removal ? Voiding after [...] you have a fever over 100 degrees.Gerardo [facility] 12-20-2022 Hospital Discharge instructions Patient Education 12/20/2022 [...] Up Care 12/07/2022 13:42:13 With:Ni CARLOS Address: [facility] [place] [id number] [facility] (1) When:6 months Comments:Call for followup appointment. [...] those arrangements as well.Have a great day. [facility]06-05-2023 Evaluation note* Encounter Date Diagnosis Assessment Notes Treatment Notes Treatment Clinical Notes Nov, Diabetes mellitus wi th chronic kidney disease (ICD-10 - E11.22) He has nyz-ykofrkh-wbil ndent type 2 diabetes and currently takes [...] and has normal B12 and folate level. [employer] Other [id number] NoteRCRI- 2???points Class III Risk 10.1???% 30-day risk of , NJ, or cardiac arrest EKG at last visit [...] and prevent any major fluid shifts. [facility]UnOhio[facility]05-24-2023 NoteCoronary artery disease is stable, angina much improved s/p increased imdur dose and adding ranexa. Continue GDMTUnOhioHealth [facility]05-24-2023 NotePatient here for 1 mo follow [...] Risk 10.1 % 30-day risk of , NJ, or cardiac arrest EKG at last visit SR with 1st Degree AV block- no acute changes. From a cardiology perspective pt may proceed with planned urological procedure, he is a moderate risk for a low-moderate risk procedure. May hold ASA for 5-7 days prior (more content not included)...[facility] 11-17-2022 NoteHypertension is well controlled today 126/60 with increased norvasc and imdur doses Continue norvasc, lisinopril, imdur, Renal function being monitored by nephrologyUnOhioHealth [facility] 11-17-2022 NoteContinue statin- lipid level well controlledUnOhioHealth [facility]05-24-2023 [id number]:127 [facility]04-20-2023 NoteContinue statinUnOhioHealth [facility]04-20-2023 NoteIncrease imdur to 120 mg and start ranexa as per Dr Huynh's recommendationsUnOhioHealth [facility]04-20-2023 Note Reviewed concerning symptoms and recent [...] pain, angina, shortness of breath or further concerns.[facility]04-20-2023 NoteUTP CARDIOLOGY PROGRESS NOTE HPI: Victorino Smyth is a 82 y.o. male here for Chest Pain, Coronary Artery Disease, and Hypertension Patient here c/o chest tightness/burning with exertion the past few months. Says it feels similar to 2017 when he had an NJ. Has been becoming more intense lately. States [...] March of 2013, and then developed acute NJ related to ISR of the LAD stent on 09/28/2016 and underwent emergent Promus JOSE RAMON stent to the LAD at [facility], was on Brilinta but currently on aspirin [...] medications on file p (more content not included)...[facility]04-20-2023 NotePatient here c/o chest tightness with exertion the past few months. Says it feels similar to 2017 when he had an NJ. Has been becoming more intense lately. Says [...] pain. All other systems reviewed and are negative.[facility] 10-07-2022 Hospital Discharge instructions Patient Education [...] Follow these instructions at home: Medicines Take twvy-zfz-fmcpiyi and prescription medicines only as told by [...] 07/02/2008 Document Revised: 09/24/2019 Document Reviewed: 05/04/2017 [employer] Patient Education 2020 [employer] Follow Up Care 09/06/2022 10:38:13 With:Ni OLIVARES Address: [address] [place], [place] [address] Business (1) When: Unknown Comments:We were able [...] prior to considering any other anesthesia procedures. [facility]04-13-2023 Evaluation + Plan noteExtracted from: Title:KALEN post op Author:Tmiothy Pittman MD Date:10/07/22 Plan Transfer/Discharge: Transfer/Discharge Discharge when meets criteria ( To home ). Extracted from: Title:KALEN [place] Author:Timothy Pittman MD Date:10/07/22 Plan [place] [employer] Anesthesiologists (ASA) physical status classification: Class III. Anesthetic Preoperative Plan: Anesthesia General. Future Appointments Appointment Date:10/29/2022 08:45:00 AM Scheduled Provider:Milton BRAUN MD Location:[facility] Appointment Type:URO Office Visit [facility]03-23-2023 Note [id number]:127[facility] 09-15-2022 Evaluation note* Encounter Date Diagnosis Assessment Notes Treatment Notes Treatment Clinical Notes Aug, Diabetes mellitus wi th chronic kidney disease (ICD-10 - E11.22) He has mnm-iwtlxxb-njtn ndent type 2 diabetes and currently takes [...] have advised him to adequately hydrate himself. [facility] Other 03-13-2023 Hospital Discharge instructions Patient Education 09/06/2022 10:27:16 Kidney Stones, Txix-uf-Nuvv Kidney Stones Kidney stones are rock-like masses [...] Follow these instructions at home: Medicines Take geaa-aff-pkyzrdo and prescription medicines only as told by [...] 11/29/2008 Document Revised: 10/30/2019 Document Reviewed: 10/30/2019 [employer] Patient Education 2020 [employer] Follow Up Care 08/17/2022 09:18:37 With:CARLOS OLIVEROS, Ni Garcia, URL Address: [address] [place], [place] [address]- When: Unknown [facility] [id number] Note [id number]:127[facility] 08-15-2022 Discharge summary Author Hiral Interiano [facility] August 15, 2022 1:50pm Note Date/Time August 15, 2022 1:50pm [facility] [address] [place] [address] Discharge Summary Signed Patient: Victorino Smyth MR#: [id number] : 1940 Acct:[id number] Age/Sex: 82 / M Adm Date: 3 Loc: 4N Room: 1I4271-[address]: Hiral Interiano MD Copies to: [...] history of nephrolithiasis. He initially presented to [facility] with complaint of hypoglycemia and was found to have severe renal failure along with metabolic acidosis and hyperkalemia. CT scan at [place] ER showed atrophic left kidney with obstructing stone in the right ureteropelvic junction. Patient was transferred to [facility] for further intervention. On arrival [...] is also advised to follow-up with his pet sitter in 4-week. CT scan at [place] ER also showed 0.8 cm nodule on [...] Low-Cholesterol Additional Instructions: Follow-up with your Primary [employer]ionics Systems Integration Specialist in 4 weeks. Avoid NSAIDs for pain [...] office on Tuesday to schedule follow-up with Supervisor Lump [facility]. ) Documented By: Hiral Interiano MD 08/15/22 4902 Signed By: <Electronically signed by Hiral Interiano MD> 08/15/22 2640 [facility] Work Phone: 1(130) 742-267502-19-2023 Progress note Author Alicia Perea [facility] August 15, 2022 12:01pm Note Date/Time August 15, 2022 12:01pm [facility] [address] [place] [address] Nephrology Progress Note Signed Patient: Victorino Smyth MR#: [id number] : 1940 Acct:[id number] Age/Sex: 82 / M Adm Date: 3 Loc: Room: [address] [place] [address] Type: ADM IN Attending Dr: Hiral Interiano MD Copies to: ~ Date of Service: 08/15/2022 Subjective Subjective Narrative: This is a 82-year-old male with a medical history of coronary artery disease s/pPCI, nephrolithiasis, CKD, diabetes mellitus, hypertension, dyslipidemia was presented to the emergency room of [facility] for generalized weakness and low urine output. On evaluation emergency room patient was found to have a life- threatening hyperkalemia with serum potassium 7 mmol/L, acute kidney injurywith elevated serum creatinine 17.8 mg/dL, metabolic acidosis serum bicarbonate 13.5 mmol/L. He was given insulin D50 calcium gluconate in the [place] emergency room. He had a CAT scan abdomen pelvis done which showed obstructive kidney stones in the right UPJ and total atrophy of the left kidney. Case was discussed with the on-call urologist Dr. Olivares and recommended patient needs to be n.p.o. for surgical intervention. He was transferred to [facility] for further care. Patient is history of CKD due to the longstanding DM, HTN and recurrent KELSEA with baseline serum creatinine 1.4 to 1.6 mg/dL. He follows in my office for his CKD care. 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: Awake,Alert, following simple command Musculoskeletal: No joint [...] 10 Mg Tablet) 10 mg PO DAILY [facility] Stop: 08/16/23 08:59 Aspirin (Aspirin 81 Mg Tablet.Dr) 81 mg PO DAILY [facility] Stop: 08/12/23 08:59 Last Admin: 08/15/22 09:45 Dose: 81 mg Atorvastatin Calcium (Atorvastatin 40 Mg Tablet) 40 mg PO HS [facility] Stop: 08/11/23 21:59 Last Admin: 08/14/22 21:08 [...] Units/3 Ml Insuln.Pen) 0 units SUBCUT TID.WM.HS [facility]; Protocol Stop: 08/11/23 16:59 Last Admin: 08/15/22 09:46 Dose: 5 units Insulin Glargine (Insulin Glargine 300 Units/3 Ml Insuln.Pen) 5 units SUBCUT DAILY [facility] Stop: 08/13/23 08:59 Last Admin: 08/15/22 09:47 Dose: 5 units Melatonin (Melatonin 5 Mg Tablet) 5 mg PO QHS PRN PRN Reason: insomnia Stop: 08/14/23 21:59 Last Admin: 08/14/22 21:08 Dose: 5 mg Metoprolol Tartrate (Metoprolol Tartrate 50 Mg Tablet) 50 mg PO BID [facility] Stop: 08/11/23 20:59 Last Admin: 08/15/22 09:45 [...] signed by Alicia Perea MD> 08/15/22 1201 [facility] Work Phone: 1(971) 613-778802-19-2023 Progress note Author Cade Alvarez [facility] August 15, 2022 11:31am Note Date/Time August 15, 2022 11:31am [facility] [address] [place] [address] Cardiology Progress Note Signed Patient: Victorino Smyth MR#: [id number] : 1940 Acct:[id number] Age/Sex: 82 / M Adm Date: 3 Loc: 4N Room: [address] [place] [address] Type: ADM IN Attending Dr: Hiral Interiano [...] patient has cardiology follow-up with his primary pet sitter in [place] within 4 weeks of discharge. (2) CAD (coronary artery disease): Code(s): I25.10 - Atherosclerotic heart disease of [place] coronary artery without angina pectoris Status: Acute [...] signed by Cade Alvarez MD> 08/15/22 1131 [facility] Work Phone: 1(551) 188-235802-18-2023 Progress note Author Hiral Interiano [facility] August 14, 2022 2:57pm Note Date/Time August 14, 2022 2:49pm [facility] [address] [place] [address] Hospitalist Progress Note Signed Patient: Victorino Smyth MR#: [id number] : 1940 Acct:[id number] Age/Sex: 82 / M Adm Date: 3 Loc: 4N Room: [address] [place] [address] Type: ADM IN Attending Dr: Hiral Interiano [...] Vial SUBCUT 08/12/23 21:59 Not Given Q8HR [facility] Hydralazine HCl 10 mg 08/11/22 13:41 08/14/22 [...] Ml Insuln.Pen SUBCUT 08/11/23 16:59 Not Given TID.WM.[facility] Protocol Insulin Glargine 5 units 08/13/22 09:00 08/14/22 11:59 Insulin Glargine 300 Units/3 Ml Insuln.Pen SUBCUT 08/13/23 08:59 5 units DAILY [facility] Administration Metoprolol Tartrate 50 mg 08/11/22 21:00 [...] days. Documented By: Hiral Interiano MD 08/14/22 2841 Signed By: <Electronically signed by Hiral Interiano MD> 08/14/22 1457 [facility] Work Phone: 1(927) 671-341602-18-2023 Progress note Author Alicia Perea [facility] August 14, 2022 11:55am Note Date/Time August 14, 2022 11:55am [facility] [address] [place] [address] Nephrology Progress Note Signed Patient: Victorino Smyth MR#: [id number] : 1940 Acct:[id number] Age/Sex: 82 / M Adm Date: 3 Loc: 4N Room: [address] [place] [address] Type: ADM IN Attending Dr: Hiral Interiano MD Copies to: ~ Date of Service: 08/14/2022 Subjective Subjective Narrative: This is a 82-year-old male with a medical history of coronary artery disease s/pPCI, nephrolithiasis, CKD, diabetes mellitus, hypertension, dyslipidemia was presented to the emergency room of [facility] for generalized weakness and low urine output. On evaluation emergency room patient was found to have a life- threatening hyperkalemia with serum potassium 7 mmol/L, acute kidney injurywith elevated serum creatinine 17.8 mg/dL, metabolic acidosis serum bicarbonate 13.5 mmol/L. He was given insulin D50 calcium gluconate in the [place] emergency room. He had a CAT scan abdomen pelvis done which showed obstructive kidney stones in the right UPJ and total atrophy of the left kidney. Case was discussed with the on-call urologist Dr. Olivares and recommended patient needs to be n.p.o. for surgical intervention. He was transferred to [facility] for further care. Patient is history of CKD due to the longstanding DM, HTN and recurrent KELSEA with baseline serum creatinine 1.4 to 1.6 mg/dL. He follows in my office for his CKD care. 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: Awake,Alert, following simple command Musculoskeletal: No joint [...] 100 Mg Tablet) 100 mg PO BID [facility] Stop: 08/18/22 20:59 Last Admin: 08/14/22 08:23 [...] 5,000 Unit/Ml Vial) 5,000 unit SUBCUT Q8HR [facility] Stop: 08/12/23 21:59 Last Admin: 08/14/22 06:05 Dose: Not Given Hydralazine HCl (Hydralazine 20 Mg/Ml Vial) 10 mg IV-PUSH Q4H PRN PRN Reason: Hypertension Stop: 08/11/23 13:40 Last Admin: 08/14/22 05:44 Dose: 10 mg Ceftriaxone Sodium (Rocephin) 1 gm in 50 mls @ 100 mls/hr IV Q24H [facility] Stop: 08/14/22 14:14 Last Admin: 08/13/22 15:07 Dose: 100 mls/hr Sodium Chloride (0.9% Sodium Chloride 1,000 Ml) 1,000 mls @ 0 mls/hr MISCELLANE.Q0M PRN PRN Reason: Dialysis Stop: 08/11/23 14:19 Last Infusion: 08/12/22 12:38 Dose: Infused Insulin Aspart (Insulin Aspart 300 Units/3 Ml Insuln.Pen) 0 units SUBCUT TID.[facility]; Protocol Stop: 08/11/23 16:59 Last Admin: 02/18/23 [...] Perez Jr., D.O.08/13/2022 2:25 PM Dictation Location: [place] [address] Any impression(s) listed above is documentation that was entered by the reading physician into a diagnostic report(s) for Vcitorino Smyth. I have reviewed the report(s) and [...] output Documented By: Alicia Perea MD 08/14/22 0364 Signed By: <Electronically signed by Alicia Perea MD> 08/14/22 5762 [facility] Work Phone: 1(234) 488-256802-18-2023 Progress note Author Cade Alvarez [facility] August 14, 2022 11:21am Note Date/Time August 14, 2022 11:21am [facility] [address] [place] [address] Cardiology Progress Note Signed Patient: Victorino Smyth MR#: [id number] : 1940 Acct:[id number] Age/Sex: 82 / M Adm Date: 3 Loc: 4N Room: [address] [place] [address] Type: ADM IN Attending Dr: Hiral Interiano [...] % (Auto) 79.6 Lymph % (Auto) 7.8 [place] % (Auto) 11.4 Eos % (Auto) 1.0 Baso % (Auto) 0.2 Nucleat RBC Rel Count 0.1 Neut # (Auto) 5.9 Lymph # (Auto) 0.6 L [place] # (Auto) 0.8 Eos # (Auto) 0.1 [...] MPV Neut % (Auto) Lymph % (Auto) [place] % (Auto) Eos % (Auto) Baso % (Auto) Nucleat RBC Rel Count Neut # (Auto) Lymph # (Auto) [place] # (Auto) Eos # (Auto) Baso # [...] make sure that he has follow-up in [facility] within 4 weeks of discharge. (2) CAD (coronary artery disease): Assessment/Problem Details: Stable/quiescent. No ischemic complications with yesterday's urological procedure. Code(s): I25.10 - Atherosclerotic heart disease of [place] coronary artery without angina pectoris Status: Acute Plan: Medical recommendations as above. Plan Thank you very much for this kind consultation and for allowing us to participate in the care of this very pleasant patient Time spent with patient Time Spent With Patient (min): 30 Documented By: Cade Alvarez MD 08/14/22 1118 Signed By: <Electronically signed by Cade Alvarez MD> 08/14/22 1121 [facility] Work Phone: 1(489) 424-166102-17-2023 Progress note Author Hiral Interiano [facility] August 13, 2022 3:09pm Note Date/Time August 13, 2022 3:02pm [facility] [address] [place] [address] Hospitalist Progress Note Signed Patient: Victorino Smyth MR#: [id number] : 1940 Acct:[id number] Age/Sex: 82 / M Adm Date: 3 Loc: 4N Room: 3B5686-4 Type: ADM IN Attending Dr: Hiral Interiano [...] <Electronically signed by Hiral Interiano MD> 08/13/22 1502 [facility] Work Phone: 1(422) 363-162202-17-2023 Progress note Author Alicia Perea [facility] August 13, 2022 11:29am Note Date/Time August 13, 2022 11:25am [facility] [address] [place] [address] Nephrology Progress Note Signed Patient: Victorino Smyth MR#: [id number] : 1940 Acct:[id number] Age/Sex: 82 / M Adm Date: 3 Loc: Room: [address] [place] [address] Type: ADM IN Attending Dr: Hiral Interiano MD Copies to: ~ Date of Service: 08/13/2022 Subjective Subjective Narrative: This is a 82-year-old male with a medical history of coronary artery disease s/pPCI, nephrolithiasis, CKD, diabetes mellitus, hypertension, dyslipidemia was presented to the emergency room of [facility] for generalized weakness and low urine output. On evaluation emergency room patient was found to have a life- threatening hyperkalemia with serum potassium 7 mmol/L, acute kidney injurywith elevated serum creatinine 17.8 mg/dL, metabolic acidosis serum bicarbonate 13.5 mmol/L. He was given insulin D50 calcium gluconate in the [place] emergency room. He had a CAT scan abdomen pelvis done which showed obstructive kidney stones in the right UPJ and total atrophy of the left kidney. Case was discussed with the on-call urologist Dr. Olivares and recommended patient needs to be n.p.o. for surgical intervention. He was transferred to [facility] for further care. Patient is history of CKD due to the longstanding DM, HTN and recurrent KELSEA with baseline serum creatinine 1.4 to 1.6 mg/dL. He follows in my office for his CKD care. 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: Awake,Alert, following simple command Musculoskeletal: No joint [...] 81 Mg Tablet.Dr) 81 mg PO DAILY [facility] Stop: 08/12/23 08:59 Last Admin: 08/13/22 08:44 Dose: Not Given Atorvastatin Calcium (Atorvastatin 40 Mg Tablet) 40 mg PO HS [facility] Stop: 08/11/23 21:59 Last Admin: 08/12/22 21:07 Dose: 40 mg Dextrose (Dextrose 50% In Water 25 Gm/50 Ml Syringe) 0 gm IV-PUSH PRN PRN PRN Reason: Hypoglycemia Stop: 08/11/23 14:01 Glucose (Dextrose 40% Gel 15 Gm Tube) 0 gm PO PRN PRN PRN Reason: Hypoglycemia Stop: 08/11/23 14:01 Guaifenesin (Guaifenesin 600 Mg Tab.Er.12h) 1,200 mg PO BID [facility] Stop: 08/12/23 20:59 Last Admin: 08/13/22 08:45 [...] 50 mls @ 100 mls/hr IV Q24H [facility] Last Admin: 08/12/22 16:24 Dose: 100 mls/hr Azithromycin (Zithromax) 500 mg in 250 mls @ 250 mls/hr IV Q24H [facility] Last Admin: 08/12/22 15:06 Dose: 250 mls/hr Sodium Chloride (0.9% Sodium Chloride 1,000 Ml) 1,000 mls @ 0 mls/hr MISCELLANE.Q0M PRN PRN Reason: Dialysis Stop: 08/11/23 14:19 Last Infusion: 08/12/22 12:38 Dose: Infused Insulin Aspart (Insulin Aspart 300 Units/3 Ml Insuln.Pen) 0 units SUBCUT TID..[facility]; Protocol Stop: 08/11/23 16:59 Last Admin: 08/13/22 08:44 Dose: Not Given Insulin Glargine (Insulin Glargine 300 Units/3 Ml Insuln.Pen) 5 units SUBCUT DAILY [facility] Stop: 08/13/23 08:59 Last Admin: 08/13/22 08:45 Dose: Not Given Metoprolol Tartrate (Metoprolol Tartrate 50 Mg Tablet) 50 mg PO BID [facility] Stop: 08/11/23 20:59 Last Admin: 08/13/22 08:45 [...] signed by Alicia Perea MD> 08/13/22 [address] [facility] Work Phone: 1([phone]) 295-601802-17-2023 Progress note Author Cade Alvarez [facility] August 13, 2022 9:40am Note Date/Time August 13, 2022 9:35am [facility] [address] [place] [address] Cardiology Progress Note Signed Patient: Victorino Smyth MR#: [id number] : 1940 Acct:[id number] Age/Sex: 82 / M Adm Date: 3 Loc: Room: [address] [place] [address] Type: ADM IN Attending Dr: Hiral Interiano [...] MPV Neut % (Auto) Lymph % (Auto) [place] % (Auto) Eos % (Auto) Baso % (Auto) Nucleat RBC Rel Count Neut # (Auto) Lymph # (Auto) [place] # (Auto) Eos # (Auto) Baso # [...] RNA (PCR) IU/mL N/A HCV RNA PCR copper miner log10 N/A Hepatitis C Interp 08/12/22 08/12/22 08/13/22 19:37 21:06 04:28 Corrected WBC 9.9 Uncorrected WBC Count 9.9 RBC 3.54 L Hgb 11.6 L Hct 34.2 L MCV 96.5 MCH 32.9 MCHC 34.1 RDW 13.7 Plt Count 129 L MPV 8.7 Neut % (Auto) 79.2 Lymph % (Auto) 9.6 [place] % (Auto) 9.8 Eos % (Auto) 0.9 Baso % (Auto) 0.5 Nucleat RBC Rel Count 0.1 Neut # (Auto) 7.8 H Lymph # (Auto) 0.9 L [place] # (Auto) 1.0 H Eos # (Auto) [...] HCV RNA (PCR) IU/mL HCV RNA PCR copper miner log10 Hepatitis C Interp 08/13/22 08/13/22 04:28 05:25 Corrected WBC Uncorrected WBC Count RBC Hgb Hct MCV MCH MCHC RDW Plt Count MPV Neut % (Auto) Lymph % (Auto) [place] % (Auto) Eos % (Auto) Baso % (Auto) Nucleat RBC Rel Count Neut # (Auto) Lymph # (Auto) [place] # (Auto) Eos # (Auto) Baso # [...] HCV RNA (PCR) IU/mL HCV RNA PCR copper miner log10 Hepatitis C Interp A&P - Cardiology [...] Code(s): I25.10 - Atherosclerotic heart disease of [place] coronary artery without angina pectoris Status: Acute Plan: Preoperative recommendations as above. Plan Thank you very much for this kind consultation and for allowing us to participate in the care of this very pleasant patient Time spent with patient Time Spent With Patient (min): 30 Documented By: Cade Alvarez MD 08/13/22 0934 Signed By: <Electronically signed by Cade Alvarez MD> 08/13/22 0940 [facility] Work Phone: [phone]) 827-352102-16-2023 Progress note Author Hiral Interiano [facility] August 12, 2022 4:04pm Note Date/Time August 12, 2022 4:04pm [facility] [address] [place] [address] Hospitalist Progress Note Signed Patient: Victorino Smyth MR#: [id number] : 1940 Acct:[id number] Age/Sex: 82 / M Adm Date: 3 Loc: Room: [address] [place] [address] Type: ADM IN Attending Dr: Hiral Interiano [...] Insuln.Pen SUBCUT 08/11/23 16:59 Not Given TID.WM.HS [facility] Protocol Metoprolol Tartrate 50 mg 08/11/22 21:00 [...] kidney disease: Plan: Patient was transferred from [place] ER when found to have acute kidney [...] <Electronically signed by Hiral Interiano MD> 08/12/22 [address] [facility] Work Phone: [phone]) 227-377302-16-2023 Progress note Author Alicia Perea [facility] August 12, 2022 11:29am Note Date/Time August 12, 2022 11:24am [facility] [address] [place] [address] Nephrology Progress Note Signed Patient: Victorino Smyth MR#: [id number] : 1940 Acct:[id number] Age/Sex: 82 / M Adm Date: 3 Loc: Room: [address] [place] [address] Type: ADM IN Attending Dr: Hiral Interiano MD Copies to: ~ Date of Service: 08/12/2022 Subjective Subjective Narrative: This is a 82-year-old male with a medical history of coronary artery disease s/pPCI, nephrolithiasis, CKD, diabetes mellitus, hypertension, dyslipidemia was presented to the emergency room of [facility] for generalized weakness and low urine output. On evaluation emergency room patient was found to have a life- threatening hyperkalemia with serum potassium 7 mmol/L, acute kidney injurywith elevated serum creatinine 17.8 mg/dL, metabolic acidosis serum bicarbonate 13.5 mmol/L. He was given insulin D50 calcium gluconate in the [place] emergency room. He had a CAT scan abdomen pelvis done which showed obstructive kidney stones in the right UPJ and total atrophy of the left kidney. Case was discussed with the on-call urologist Dr. Olivares and recommended patient needs to be n.p.o. for surgical intervention. He was transferred to [facility] for further care. Patient is history of CKD due to the longstanding DM, HTN and recurrent KELSEA with baseline serum creatinine 1.4 to 1.6 mg/dL. He follows in my office for his CKD care. 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: Awake,Alert, following simple command Musculoskeletal: No joint [...] 50 mls @ 100 mls/hr IV Q24H [facility] Last Infusion: 08/11/22 21:49 Dose: Infused Azithromycin (Zithromax) 500 mg in 250 mls @ 250 mls/hr IV Q24H [facility] Last Admin: 08/11/22 16:00 Dose: 250 mls/hr Sodium Chloride (0.9% Sodium Chloride 1,000 Ml) 1,000 mls @ 0 mls/hr MISCELLANE.Q0M PRN PRN Reason: Dialysis Stop: 08/11/23 14:19 Last Admin: 08/12/22 10:24 Dose: 999 mls/hr Insulin Aspart (Insulin Aspart 300 Units/3 Ml Insuln.Pen) 0 units SUBCUT TID.[facility]; Protocol Stop: 08/11/23 16:59 Last Admin: 08/12/22 08:07 Dose: Not Given Metoprolol Tartrate (Metoprolol Tartrate 50 Mg Tablet) 50 mg PO BID [facility] Stop: 08/11/23 20:59 Last Admin: 08/12/22 08:20 [...] Rehan Fuentes M.D.08/11/2022 4:10 PM Dictation Location: [place] [address] Any impression(s) listed above is documentation that [...] signed by Alicia Perea MD> 08/12/22 [address] [facility] Work Phone: [phone] 486-374102-16-2023 Progress note Author Cade Alvarez [facility] August 12, 2022 10:04am Note Date/Time August 12, 2022 10:05am [facility] [address] [place] [address] Cardiology Progress Note Signed Patient: Victorino Smyth MR#: [id number] : 1940 Acct:[id number] Age/Sex: 82 / M Adm Date: 3 Loc: Room: [address] [place] [address] Type: ADM IN Attending Dr: Hiral Interiano [...] % (Auto) N/A Lymph % (Auto) N/A [place] % (Auto) N/A Eos % (Auto) N/A Baso % (Auto) N/A Nucleat RBC Rel Count N/A Neut # (Auto) N/A Lymph # (Auto) N/A [place] # (Auto) N/A Eos # (Auto) N/A [...] MPV Neut % (Auto) Lymph % (Auto) [place] % (Auto) Eos % (Auto) Baso % (Auto) Nucleat RBC Rel Count Neut # (Auto) Lymph # (Auto) [place] # (Auto) Eos # (Auto) Baso # [...] MPV Neut % (Auto) Lymph % (Auto) [place] % (Auto) Eos % (Auto) Baso % (Auto) Nucleat RBC Rel Count Neut # (Auto) Lymph # (Auto) [place] # (Auto) Eos # (Auto) Baso # [...] % (Auto) 88.0 Lymph % (Auto) 4.4 [place] % (Auto) 7.4 Eos % (Auto) 0.0 Baso % (Auto) 0.2 Nucleat RBC Rel Count 0.0 Neut # (Auto) 11.8 H Lymph # (Auto) 0.6 L [place] # (Auto) 1.0 H Eos # (Auto) [...] MPV Neut % (Auto) Lymph % (Auto) [place] % (Auto) Eos % (Auto) Baso % (Auto) Nucleat RBC Rel Count Neut # (Auto) Lymph # (Auto) [place] # (Auto) Eos # (Auto) Baso # [...] Code(s): I25.10 - Atherosclerotic heart disease of [place] coronary artery without angina pectoris Status: Acute Plan: Preoperative recommendations as above. Plan Thank you very much for this kind consultation and for allowing us to participate in the care of this very pleasant patient Time spent with patient Time Spent With Patient (min): 30 Documented By: Cade Alvarez MD 08/12/22 0959 Signed By: <Electronically signed by Cade Alvarez MD> 08/12/22 [address] [facility] Work Phone: [phone] Consult note Author Alicia Perea [facility] August 11, 2022 5:46pm Note Date/Time August 11, 2022 4:00pm [facility] [address] [place] [address] Nephrology Consult Note Signed with Nancy Patient: Victorino Smyth MR#: [id number] : 1940 Acct:[id number] Age/Sex: 82 / M Adm Date: 3 Loc: Room: [address] [place] [address] Type: ADM IN Attending Dr: Hiral Interiano [...] was presented to the emergency room of [facility] for generalized weakness and low urine output. On evaluation emergency room patient was found to have a life- threatening hyperkalemia with serum potassium 7 mmol/L, acute kidney injurywith elevated serum creatinine 17.8 mg/dL, metabolic acidosis serum bicarbonate 13.5 mmol/L. He was given insulin D50 calcium gluconate in the [place] emergency room. He had a CAT scan abdomen pelvis done which showed obstructive kidney stones in the right UPJ and total atrophy of the left kidney. Case was discussed with the on-call urologist Dr. Olivares and recommended patient needs to be n.p.o. for surgical intervention. He was transferred to [facility] for further care. Patient is history of CKD due to the longstanding DM, HTN and recurrent KELSEA with baseline serum creatinine 1.4 to 1.6 mg/dL. He follows in my office for his CKD care. Patient after arrival at the [facility] hada repeat labs done which showed [...] 81 Mg Tablet.Dr) 81 mg PO DAILY [facility] Stop: 08/12/23 08:59 Atorvastatin Calcium (Atorvastatin 40 Mg Tablet) 40 mg PO HS [facility] Stop: 08/11/23 21:59 Dextrose (Dextrose 50% In [...] 50 mls @ 100 mls/hr IV Q24H [facility] Azithromycin (Zithromax) 500 mg in 250 mls @ 250 mls/hr IV Q24H [facility] Sodium Chloride (0.9% Sodium Chloride 1,000 Ml) 1,000 mls @ 0 mls/hr MISCELLANE .Q0M PRN PRN Reason: Dialysis Stop: 08/11/23 14:19 Insulin Aspart (Insulin Aspart 300 Units/3 Ml Insuln.Pen) 0 units SUBCUT TID.[facility]; Protocol Stop: 08/11/23 16:59 Metoprolol Tartrate (Metoprolol Tartrate 50 Mg Tablet) 50 mg PO BID [facility] Stop: 08/11/23 20:59 Nitroglycerin (Nitroglycerin 0.4 Mg [...] visible mass Skin: No rashes or bruises WO[employer]EN [employer]DER: Awake,Alert, following simple command Musculoskeletal: No joint swelling or limitation of movement Psychiatric: Cooperative, normal mood and affect Results Labs 08/11/22 13:39 08/11/22 13:39 Labs: 08/11/22 13:39 BUN 163 H Creatinine 17.89 H Radiology Impressions Impressions - last 24 hours: Any impression(s) listed above is documentation that was entered by the reading physician into a diagnostic report(s) for Victorino mSyth. I have reviewed the report(s) and am [...] Patient consented for dialysis. I consulted the beauty sales advisor for hemodialysis catheter placement which was placed [...] team. Documented By: Alicia Perea MD 08/11/22 2121 Signed By: <Electronically signed by Alicia Perea MD> 08/11/22 6336 [facility] Work Phone: [phone] 475-748902-15-2023 Consult note Author Cade Alvarez [facility] August 11, 2022 4:47pm Note Date/Time August 11, 2022 4:36pm [facility] [address] [place] [address] Cardiology Consult Note Signed Patient: Victorino Smyth MR#: [id number] : 1940 Acct:[id number] Age/Sex: 82 / M Adm Date: 3 Loc: Room: [address] [place] [address] Type: ADM IN Attending Dr: Hiral Interiano [...] syndrome in 2017. Patient initially presented to [place] emergency department complaining of shortness of breath [...] # (Auto) N/A Lymph # (Auto) N/A [place] # (Auto) N/A Eos # (Auto) N/A [...] nonspecific abnormality, ST segment, and/or T wave NJ, pacemaker, normal Normal tracing: no change compared [...] Code(s): I25.10 - Atherosclerotic heart disease of [place] coronary artery without angina pectoris Plan Thank you very much for this kind consultation and for allowing us to participate in the care of this very pleasant patient Documented By: Cade Alvarez MD 08/11/22 1634 Signed By: <Electronically signed by Cade Alvarez MD> 08/11/22 1647 [facility] Work Phone: [phone] Consult note Author Ni Olivares [facility] August 11, 2022 3:24pm Note Date/Time August 11, 2022 3:24pm [facility] [address] [place] [address] Urology Consult Note Signed Patient: Victorino Smyth MR#: [id number] : 1940 Acct:[id number] Age/Sex: 82 / M Adm Date: 3 Loc: Room: [address] [place] [address] Type: ADM IN Attending Dr: Hiral Interiano MD Copies to: MD Ni James MD Mazhar Rahman, MD~ History of Present Illness Consult Details Consult Date: 08/11/2022 Requesting Provider: Hiral Interiano MD HPI: Mr. Smyth is an 82-year-old man [facility]. The patient presented with some diffuse [...] the emergency room prior to transfer to [facility]. He finished breakfast at about [...] % (Auto) N/A, Lymph % (Auto) N/A, [place] % (Auto) N/A, Eos % (Auto) N/A, Baso % (Auto) N/A, Nucleat RBC Rel Count N/A, Neut # (Auto) N/A, Lymph # (Auto) N/A, [place] # (Auto) N/A, Eos # (Auto) N/A, [...] actually worse than that noted at the [facility] at a current level of 7.4. Due [...] indicated. Documented By: Ni Olivares MD 08/11/22 1515 Signed By: <Electronically signed by MD Ni Olivares> 08/11/22 0043 [facility] Work Phone: [phone]) 720-776102-15-2023 History and physical note Author Hiral Interiano [facility] August 11, 2022 2:02pm Note Date/Time August 11, 2022 2:02pm [facility] [address] [place] [address] Hospitalist H&P Signed Patient: Victorino Smyth MR#: [id number] : 1940 Acct:[id number] Age/Sex: 82 / M Adm Date: 02/15/2 3 Loc: Room: 7U3167-9 Type: ADM IN Attending Dr: Hiral Interiano [...] of nephrolithiasis. Patient has been transferred from [facility] ER for acute kidney injury and obstructing [...] repeated labs available in the record from [facility]. Chest x-ray read as mild [...] a similar feeling when he had an NJ in 2017 and prior to that in [...] negative unless noted below or in HPI [facility] Medical History (Updated 08/11/22 [...] type 2. He has been transferred from [place] ER for obstructive uropathy with worsening renal failure and hyperkalemia. I was informed the patient was given cocktail for hyperkalemia with no repeated labs available in the record. Patient arrival to floor complaining of midsternal discomfort and mentioned having similar feeling when he had an NJ. Does appear tachypneic likely from metabolic acidosis. [...] signed by Hiral Interiano MD> 08/11/22 1402 [facility] Work Phone: [phone]) [phone] [facility] Evaluation note* Encounter Date Diagnosis Assessment Notes Treatment Notes Treatment Clinical Notes May, Diabetes mellitus wi th chronic kidney disease (ICD-10 - E11.22) He has wsw-pzszkpe-gvhn ndent type 2 diabetes and currently takes [...] have advised him to adequately hydrate himself. Dang Le Other 08-11-2022 NotePROCEDURE: XR KNEE LT 4V or > COMPARISON: None. HISTORY: Pain of left knee joint FINDINGS: BONES:No acute fracture or dislocation. Minimal degenerative changes. SOFT TISSUES:Negative. No visible soft tissue swelling. EFFUSION:None visible. OTHER: Vascular calcification IMPRESSION: No acute abnormality Electronically authenticated by: TYLER MONSIVAIS Date: 2022-02-04 07:23[facility]05-31-2022 Evaluation note* Encounter Date Diagnosis Assessment Notes Treatment Notes Treatment Clinical Notes October, Diabetes mellitus wi th chronic kidney disease (ICD-10 - E11.22) He has cya-klexhsz-pgofc dent type 2 diabetes and currently takes [...] have advised him to adequately hydrate himself. Dang Le Other 05-02-2022 Hospital Discharge instructions Follow Up Care 10/26/2021 10:06:54 With:KADE OLIVEROS, Milton Brewer, URL Address: [address] [place] [address]- When: Unknown [facility] Charito 05-02-2022 Hospital Discharge instructions [...] 06/13/2006 Document Revised: 03/02/2019 Document Reviewed: 05/13/2017 [employer] Patient Education 2020 [employer]. 10/26/2021 09:44:44 Urinary Frequency, Adult Urinary Frequency, [...] to keep your urine pale yellow. ?Take igcl-luo-igsbmkd or prescription medicines. ?Eat foods that are high in fiber, such as beans, whole grains, and fresh fruits and vegetables. ?Limit foods that are high in fat and processed sugars, such as fried or sweet foods. General instructions Take ohst-sga-ymjqkfa and prescription medicines only as told by [...] the muscles that help control urination. Take mceh-tea-kpkgepn and prescription medicines only as told by your health care provider. Contact a health care provider if your symptoms do not improve or get worse. This information is not intended to replace advice given to you by your health care provider. Make sure you discuss any questions you have with your health care provider. Document Released: 04/09/2010 Document Revised: 12/21/2018 Document Reviewed: 12/21/2018 [employer] Patient Education 2020 [employer]. 10/26/2021 09:44:41 Kidney Stones, Yohl-rk-Yzrx Kidney Stones Kidney stones are rock-like masses [...] Follow these instructions at home: Medicines Take posk-vzz-kyzsnly and prescription medicines only as told by [...] 11/29/2008 Document Revised: 10/30/2019 Document Reviewed: 10/30/2019 [employer] Patient Education 2019 [employer]. Follow Up Care 02/23/2021 14:09:11 With:KADE OLIVEROS, Milton Brewer, SUEL Address: [facility] [address], [place] [address]- When:10/26/2022 [facility] 11-30-2021 Evaluation note* Encounter Date Diagnosis Assessment Notes Treatment Notes Treatment Clinical Notes Apr, Diabetes mellitus wi th chronic kidney disease (ICD-10 - E11.22) He has jft-dttdttn-knkgy dent type 2 diabetes and currently takes [...] have advised him to adequately hydrate himself. Dang Le Other Evaluation + Plan note Future Appointments Appointment Date:10/29/2022 08:45:00 AM Scheduled Provider:Milton BRAUN MD Location:[facility] Appointment Type:URO Office Visit [facility] evaluation + Plan note Future Appointments Appointment Date:09/14/2022 07:30:00 AM Scheduled Provider: Location:[facility] Appointment Type:Surgical PAT FT Appointment Date:10/07/2022 12:00:00 PM Scheduled Provider: Location:[facility] Appointment Type:Surgery FT Appointment Date:10/29/2022 08:45:00 AM Scheduled Provider:Milton BRAUN MD Location:[facility] Appointment Type:URO Office Visit [facility] Evaluation + Plan note Future Appointments Appointment Date:11/18/2022 10:30:00 AM Scheduled Provider: Location:[facility] Appointment Type:Surgical PAT FT Appointment Date:12/02/2022 11:45:00 AM Scheduled Provider: Location:[facility] Appointment Type:Surgery FT [facility] evaluation + Plan note Future Appointments Appointment Date:06/12/2024 11:00:00 AM Scheduled Provider:Ni OLIVARES MD Location:[facility] Appointment Type:URO Office Visit Future Scheduled Tests Laboratory* Total Protein 24 Hour Urine 02/14/23 [facility] Evaluation note* Diagnosis Onset Date Resolution Status Acute kidney injury superimp osed on chronic kidney disease acute Acute kidney insufficiency a cute CAD (coronary artery disease) acute CKD (chronic kidney disease) stage 3, GFR 30-59 ml/min acute Elevated PSA acute Hydronephrosis with ureteral calculus acute Hyperkalemia acute [id number] acute Left renal atrophy acute Metabolic acidosis acute Obstructive nephropathy acut e Preoperative cardiovascular examination acute Right ureteral stone acute 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 Diabetes chronic [facility] Work Phone: Evaluation noteNo assessment information available [facility] Work Phone: Hisraka general Narrative - Reported* Type Description Date Medical History DIABETES MELLITUS Medical History CORONARY ARTERY DISEASE Medical History MORBID OSESITY Surgical History HERNEA LOWER RIGHT ABDOMINAL Surgical History HEART ATTACK WITH STENT PLACEME NT IN THE LAD Surgical History KIDNEY STENTS X 2 Surgical History PROSTRATE BIO PAD Surgical History KIDNEY STENTS X2 Surgical History KIDNEY STONE REMOVAL Hospitalization History SEE ABOVE Dang Le Other Hisjylw general Narrative - Reported* Type Description Date [...] KIDNEY STONE REMOVAL Hospitalization History SEE ABOVE Dang Le Other History general Narrative - Reported* Type [...] KIDNEY STONE REMOVAL Hospitalization History SEE ABOVE Dang Le Other Hismlcx general Narrative - Reported* Type Description Date [...] History KELSEA, HYPERKALEMIA, METAB OLIC ACIDOSIS 08/11/2022 Dang Le Other Hospital course Narrative No data available for this section [facility] Discharge instructions Additional Instructions Follow-up with your Primary Avionics Systems Integration Specialist in 4 weeks. Avoid NSAIDs for pain control. Call [facility] Scheduling on Tuesday at [phone] to arrange a follow up CT scan regarding lung nodule in 4 weeks. Maintain occlussive dressing to HD catheter removal site for 48 hours - return to the Emergency Room for oozing or drainage from catheter exit site, noticeable swelling or itching around neck, shortness of breath, [facility] Work Phone: Progress note No data available for this section [facility] Chief Complaint and Reason for Visit Chief Complaint ACUTE RENAL FAILURE Reason for Visit Acute kidney injury superimposed on chronic kidney disease Acute kidney insufficiency CAD (coronary artery disease) CKD (chronic kidney disease) stage 3, GFR 30-59 ml/min Elevated PSA Hydronephrosis with ureteral calculus Hyperkalemia [id number] Left renal atrophy Metabolic acidosis Obstructive nephropathy [...] Kiser MD Other Provider Active Jen Tamayo [facility]- Other Provider Active Aaliyah Mitchell MD Other [...] section and content) DATE CREATED AUTHOR 10/03/2022 [facility] DATE CREATED AUTHOR AUTHOR'S ORGANIZ ATION 12/07/2022 Coreen bran DATE CREATED AUTHOR AUTHOR'S ORGANIZ ATION 01/27/2023 [facility] DATE CREATED AUTHOR AUTHOR'S ORGANIZ ATION 07/05/2023 [facility] DATE CREATED AUTHOR AUTHOR'S ORGANIZ ATION 07/07/2023 [facility] Goals (unrecognized section and content) Goals may [...] BE BASED ON THE PRIMARY CLINICAL RECORDS. [employer] provides no warranty or guarantee of the accuracy or completeness of information in this document.
--- NOTE | 2023-08-02 12:16 | CM.NOTE ---
Attempted Discharge phone call without success.
--- NOTE | 2023-08-05 15:39 | CM.DCFOLLOWU ---
Second attempt at discharge follow up call. No answer.
== END 2023-07-31 11:41 | disposition home health service (06) | DRG 177 ==
LOC: ER 16:53 → MS 07-31 09:34
PROVIDERS: Physician Assistant; Admitting Provider Family Medicine; Emergency Provider Emergency Medicine Emergency Medical Services; PCP Family Medicine; Visit Provider Family Medicine
DX: U07.1 COVID-19 (principal); J12.82 Pneumonia due to coronavirus disease 2019; N17.9 Acute kidney failure, unspecified; J44.1 Chronic obstructive pulmonary disease with (acute) exacerbation; J44.0 Chronic obstructive pulmonary disease with (acute) lower respiratory infection; Z95.0 Presence of cardiac pacemaker; Z87.891 Personal history of nicotine dependence; I10 Essential (primary) hypertension; E11.9 Type 2 diabetes mellitus without complications; Z95.5 Presence of coronary angioplasty implant and graft; Z79.82 Long term (current) use of aspirin; Z79.899 Other long term (current) drug therapy; Z79.84 Long term (current) use of oral hypoglycemic drugs; I25.10 Atherosclerotic heart disease of native coronary artery without angina pectoris; D69.6 Thrombocytopenia, unspecified; R09.02 Hypoxemia; E03.9 Hypothyroidism, unspecified; K37 Unspecified appendicitis
CPT/HCPCS: 0202U; 36415; 71045; 80053; 82948; 83605; 83880; 84484; 85007; 85025; 85027; 85610; 85730; 87040; 87070; 87811; 93005; 94640; 94667; 94668; 94761; 96361; 96365; 96366; 96367; 96368; 99285; G0328; G0378; J0456; J0743; J1100

== ENCOUNTER 2023-08-29 08:05 | Outpatient (OUT) | payer MEDICARE, SELFPAY ==
--- NOTE | 2023-08-29 08:09 | CT_ITS ---
The [address] [address] Patient Name: GLADYS SMYTH MRN: [id number] date: 1940 Sex: M Assigned Patient Location: LAB Current Patient Location: LAB Accession/Order Number: [id number] Exam Date: 08/29/2023 10:05 Report Date: 08/29/2023 11:10 At the request of: JENNIFER DRISCOLL Procedure: CT abdomen pelvis w con EXAM: CT abdomen pelvis w con HISTORY: abdominal pain COMPARISON: CT abdomen and pelvis 07/19/2023. TECHNIQUE: Following intravenous administration of 100 cc of Visipaque, axial soft tissue windows of the abdomen and pelvis were performed with coronal and sagittal reformats. CT dose reduction technique was used including Automated Exposure Control. Findings: Hepatic low-attenuation lesion, too small to characterize. The gallbladder, pancreas, and adrenal glands are unremarkable. Splenic calcifications likely relating to prior granulomatous disease. Nonspecific bilateral perinephric fat stranding. Atrophic left kidney. No renal stones or collecting system dilatation. Off the right kidney is an exophytic 2.2 cm cyst. Mild right-sided pelvocaliectasis. The bilateral ureters are nondilated. There are colonic diverticula. The appendix is fluid-filled and dilated with adjacent stranding of the fat concerning for acute appendicitis. In addition, there are small adjacent rim-enhancing focal fluid collections concerning for abscess. The largest is off the left border of the appendix measuring approximately 2.8 cm. The aorta is normal caliber. Mild atherosclerotic disease. No enlarged abdominal lymph nodes or free abdominal fluid. Pelvis: Unremarkable bladder. The prostate is nonenlarged. No enlarged pelvic lymph nodes or free pelvic fluid. No aggressive sclerotic or lytic osseous lesions. Mild multilevel degenerative spondylosis. Impression 1. Redemonstrated is acute appendicitis. Small adjacent rim-enhancing focal fluid collections likely representing abscesses. These are new when compared to prior study. Electronically authenticated by: THELMA KHAN Date: 08/29/2023 11:10
--- OUTSIDE RECORDS SUMMARY | 2023-08-29 08:09 | XMS_ITS | CCD ---
Author Name Unknown Address [address] [place] [address] Organization [facility] Care Team Providers Care Death Claim Clerk Name Role Phone Tray Alfaro Primary Care Physician Alicia Perea Unavailable MD Tray Alfaro Primary Care Provider MD Hiral Interiano Admit Provider MD Hiral Interiano Attending Provider ALISHA Mckinley [facility] Other Provider Unavailable DO Lizzy Lin Other [...] Provider MD Kiran Eldridge Jr Other Provider [phone] MD Fátima Ivey Other Provider MD Shaquille [...] Unavailabl e THADDEUS DAUGHERTY Admcrescencio Unavailable THADDEUS DAUGHETRY Consulting Unavailable YOGESH BYERS Consulting Unavailable ILA [...] IRIS Consulting Unavailable BERNA, IRIS Attending Unavailable EBRNA, IRIS Admitting Unavailable HOY ., DR FELIZ [...] Unavailable MD Tray Alfaro Primary Care Provider [phone] MD Ni Olivares Attending Provider Ni OLIVARES [...] Attending Unavailable Ni OLIVARES P Referring Unavailable MARSHALL, Ni P Admitting Unavailable Marshall, Ni P Admitting Unavailable Tray Alfaro M Primary Care Unavailable Cook, Ni P Attending Unavailable Interiano, Hiral Admitting Unavailable Gita Mckinley Consulting Unavailable Tray Alfaro Primary Care Unavailable Hiral Interiano Attending Unavailable Lizzy Lin Consulting Unavailable Niharika Elias Consulting Unavailable Joel Larkin Consulting Unavail able Isidro Dow Consulting Unavailable Peter Manuel Consulting Unavailab Pauline [place] Consulting Unavailable Peyton Barragan Consulting Unavailable Myesha Solo Consulting Unavailab Skinny Sanchez Consulting Unavailable Jen Tamayo Consulting Unavailable Aaliyah Mitchell Consulting Unavailable Alicia Perea Consulting Unavailable Milton Braun Consulting Unavailable Ni Olivares Consulting Unavailable Yogesh Omalley Consulting Unavailable Kiran Eldridge Jr Consulting Unavailable Fátima Ivey Consulting Unavailable Shaquille Villarreal Consulting Unavailable Bipin Barclay Consulting Unavailable Tray Alfaro Primary Care Unavailable Ridge Olivaresory P Admitting Unavailable Ni Olivares P Attending Unavailable Tray Alfaro M Primary Care Unavailable Cook, Ni P Admitting Unavailable Cook, Ni P Attending Unavailable Tray Alfaro M Primary Care Unavailable Interiano, Hiral Admitting Unavailable Interiano, Hiral Attending Unavailable Allergies Allergy Classification Reported Allergen(s) Allergy Type Date of Onset Reaction(s) Facility (12 sources) Ciprofloxacin; Translations: [ciprofloxacin] Drug Allergy 08-13-19 23 Eruption of skin (disorder) [facility] (13 sources) Penicillin; Translations: [penicillin] Drug Allergy Eruption of skin (disorder) [facility] Other (6 sources) Ciprofloxacin Drug Allergy Unknown [facility] Other (7 sources) Penicillins; Translations: [Penicillins] Allergy to substance 06-14-20 14 [facility] (1 source) Ciprofloxacin Drug Allergy 03-10-20 20 [facility]ository (3 sources) levothyroxine; Translations: [levothyroxine] Drug Allergy Swelling of oral cavity structure (finding) [facility] (3 sources) liothyronine; Translations: [liothyronine] Drug Allergy Swelling of oral cavity structure (finding) [facility] (1 source) No Known Medication Allergies; Translations: [No Known Medication Allergies] Propensity to adverse reactions (disorder) [facility] Repository (1 source) Ciprofloxacin Drug Allergy 06-14-20 [facility] Repository Medications Current Medications Medication Drug Class(es) Dates Sig (Normalized) Sig (Original) acetaminophen 325 mg / HYDROcodone bitartrate 5 mg oral tablet (1 source) Opioid Agonist Start: 10-07-2022 End: 10-09-2022 acetaminophen-hyd rocodone 325 mg-5 mg oral tablet 1 tab(s), Oral, q4hr Pain for 2 day(s), 7 tab(s), Refill(s) 0, [id number], 175, cm, 09/15/22 5:20:00 EDT, Height/Length Dosing, [...] Ordered Start: 04-10-2019 take 1 tablet by demler th once daily cholecalciferol 2000 intl units oral tablet (Vitamin D3) 2,000 International_Unit = 1 tab(s), Oral, Daily Start Date: 04/10/19 Status: Ordered take 1 capsule by mo [facility] every twenty-four hours Vitamin D3 125 MCG [...] # 2 cap(s), Refills(s) 0, Pharmacy: [facility] 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] Onset: 08-13-2022 Episodic Other aftercare (1 source) Other snf (current) drug therapy; Translations: [OTH CORRECTION CURRENT DRUG THERAPY] Onset: 08-13-2022 Episodic Other [...] Range Facility [facility] 07-05-2023 Lab Reports [id number]#1.00TIFF Normal [facility] Lab Reports [id number]#1.00TIFF Normal [facility] Blood Urea Nitrogenon 2023 Urea nitrogen [Mass/Vol] 31 mg/dL High 7-25 [facility] Comment on above: Performed By: #### L YTES, CREAT, BUN, PTH, URIC, CA ####[facility] [id number] [place] [id number] [facility] Calciumon 07-02-2023 Calcium [Mass/Vol] 8.8 mg/dL Normal 8.6-10.3 [facility] Comment on above: Performed By: #### L YTES, CREAT, BUN, PTH, URIC, CA ####[facility] [id number] [place] [id number] [facility] Calcium [Mass/volume] in Ser um or PlasmaOrdered By: Ni Olivares on 07-02-2023 Calcium [Mass/Vol] 8.8 mg/dL 8.6-10.3 [facility] Carbon dioxide, total [Moles /volume] in Serum or PlasmaOrdered By: Ni Olivares on 07-02-2023 CO2 [Moles/Vol] 24.0 mmol/L 21.0-31.0 [facility] Chloride [Moles/volume] in S paty or PlasmaOrdered By: Ni Olivares on 07-02-2023 Chloride [Moles/Vol] 107 mmol/L 98-107 [facility] Creatinineon 07-02-2023 Creatinine [Mass/Vol] 2.05 mg/dL High 0.70-1.30 [facility] Comment on above: Performed By: #### L YTES, CREAT, BUN, PTH, URIC, CA ####[place] [address] [place] [address] [facility] GFR/1.73 sq M.predicted MDRD (S/P/Bld) [Vol rate/Area] 32.151 mL/min/{1.73_m2} Normal [facility] Comment on above: Performed By: #### L YTINÉS, CREAT, BUN, PTH, URIC, CA ####[place] [address] [place] [address] [facility] Creatinine [Mass/volume] in Serum or PlasmaOrdered By: Ni Olivares on 07-02-2023 Creatinine [Mass/Vol] 2.05 mg/dL 0.70-1.30 [facility] Electrolyteson 07-02-2023 Anion gap [Moles/Vol] 12.0 mmol/L Normal 6.0-15.0 [facility] Comment on above: Performed By: #### L YTES, CREAT, BUN, PTH, URIC, CA ####[address] [address] [facility] Chloride [Moles/Vol] 107 mmol/L Normal 98-107 [facility] Comment on above: Performed By: #### L YTES, CREAT, BUN, PTH, URIC, CA ####[place] [address] [place] [address] [facility] CO2 [Moles/Vol] 24.0 mmol/L Normal 21.0-31.0 [facility] Comment on above: Performed By: #### L YTES, CREAT, BUN, PTH, URIC, CA ####[address] [address] [facility] Potassium [Moles/Vol] 5.0 mmol/L Normal 3.5-5.1 [facility] Comment on above: Performed By: #### L YTES, CREAT, BUN, PTH, URIC, CA ####[place] [address] [place] [address] [facility] Sodium [Moles/Vol] 138 mmol/L Normal 136-145 [facility] Comment on above: Performed By: #### L YTES, CREAT, BUN, PTH, URIC, CA ####[place] [address] [place] [phone] [facility] No Panel InformationOrdered By: Ni Olivares on 07-02-2023 Estimated GFR (CKD-EPI) 32.151 mL/Min [facility] Creatinine Clearance (Chem N/A [facility] Parathyrin.intact [Mass/volu me] in Serum or PlasmaOrdered By: Ni Olivares on 07-02-2023 Parathyrin.intact [Mass/Vol] 55.4 pg/mL [facility] Parathyroid Hormone Intacton 07-02-2023 Parathyroid Hormone Intact 55.4 pg/mL Normal [facility] Comment on above: Result Comment: PERF ORMED BY: [facility] [address] [place] [id number] PATHOLOGIST FIRE PROTECTION INSPECTOR DIANDRA LACY M.D. Performed By: #### L YTES, CREAT, BUN, PTH, URIC, CA ####[place] [address] [place] [address] [facility] Potassium [Moles/volume] in Serum or PlasmaOrdered By: Ni Olivares on 07-02-2023 Potassium [Moles/Vol] 5.0 mmol/L 3.5-5.1 [facility] Serum or plasma anion gap de terminationOrdered By: Ni Olivares on 07-02-2023 Anion gap [Moles/Vol] 12.0 mmol/L 6.0-15.0 [facility] Sodium [Moles/volume] in Ser um or PlasmaOrdered By: Ni Olivares on 07-02-2023 Sodium [Moles/Vol] 138 mmol/L 136-145 [facility] Urate [Mass/volume] in Serum or PlasmaOrdered By: Ni Olivares on 07-02-2023 Urate [Mass/Vol] 8.2 mg/dL 4.4-7.6 [facility] Urea nitrogen [Mass/volume] in Serum or PlasmaOrdered By: Ni Olivares on 07-02-2023 Urea nitrogen [Mass/Vol] 31 mg/dL 7-25 [facility] Uric Acidon 07-02-2023 Urate [Mass/Vol] 8.2 mg/dL High 4.4-7.6 [facility] Comment on above: Result Comment: PERF ORMED BY: [facility] [address] [place] [id number] PATHOLOGIST FIRE PROTECTION INSPECTOR DIANDRA LACY M.D. Performed By: #### L YTES, CREAT, BUN, PTH, URIC, CA ####[place] [address] [place] [address] [facility] Lab Reportson 07-01-2023 Lab Reports [id number]#1.00TIFF Normal [facility] PSA Total (Not a Screen)on 0 06-28-2023 PSA Total (Not a Screen) 4.730 ng/mL High 0.000-4.00 0 [facility] Comment on above: Result Comment: Seri al tumor marker results determined by assays using different manufacturers or methods may not be comparable. [facility] tension worker and method: [employer] DXI, CHEMILUMINESCENT IMMUNOASSAY. PERFORMED BY: [facility] [address] [place] [address] PATHOLOGIST FIRE PROTECTION INSPECTOR DIANDRA LACY M.D. Performed By: #### P SATOTAL ####[place] [address] [place] [address] [facility] Prostate specific Ag [Mass/v olume] in Serum or PlasmaOrdered By: Ni Olivares on 06-28-2023 Prostate specific Ag [Mass/Vol] 4.730 ng/mL 0.000-4.00 0 [facility] Comment on above: Serial tumor marker results determined by assays using different manufacturers or methods may not be comparable.[facility] tension worker and method:[employer] DXI, CHEMILUMINESCENT IMMUNOASSAY. RAD - Ultrasound Reporton RAD - Ultrasound Report [id number]#1.00TIFF Normal [facility] Lab Reportson 06-16-2023 Lab Reports [id number]#1.00TIFF Normal [facility] Lab Reports [id number]#1.00TIFF Normal [facility] Lab Reports [id number]#1.00TIFF Normal [facility] Screenson 06-16-2023 Screens [id number]#1.00TIFF Normal [facility] US renal BIon 06-16-2023 US renal BI [facility] [place] [address] Ultrasound Report Signed Patient: Victorino Smyth MR#: [id number] : 1940 Acct:[id number] Age/Sex: 82 / M ADM Date: 06/16/23 Loc: Room: Type: [facility] Attending Dr: Ni Olivares MD Ordering Provider: [...] Rehan Fuentes M.D.06/16/2023 4:02 PM Dictation Location: [place] [address] Tech: Sue Chiu Transcribed By: [facility] 06/16/23 1602 Dictated By: Rehan Fuentes DO 06/16/23 1553 Signed By: 06/16/23 1602 [facility] Ambulatory Visit Summaryon 1 08-15-2022 Ambulatory Visit Summary VICTORINO SMYTH :1940 Visit Date:06/14/2023 Ambulatory Visit Instructions Your Diagnosis Kidney stone BPH with urinary obstruction Prostate cancer Tests Performed Urnls Dip Stick Auto w/o Microscopy POC 58668 US Renal -- Results Pending -- Please [...] Schedule the Following Appointments Follow Up with MARSHALL OLIVEROS, BHUPINDER Merritt When: Where: [address] [place] [address]- Medications What How Much When Instructions Unchanged [...] or concerns Unchanged (more content not included)... [facility] Formson 06-14-2023 Forms [id number]#1.00TIFF [facility] Patient Educationon 06-14-20 23 Patient [...] ? 8 oz (237 mL) of milk, nwsdrpy-wakbnzrofhkk-lwcoq milk, and calcium-fortifiedfruit juice. Calcium-fortified means that [...] Spinach (cooked), rhubarb, beets, sweet potatoes, and Congolese chard. ? Peanuts. ? Potato chips, chadian fries, and baked potatoes with skin on. ? Nuts and nut products. ? Chocolate. ? If you regularly take a diuretic medicine, make sure to eat at least 1 or 2 servings of fruits or vegetables that are high in potassium each day. These include: ? Avocado. ? Banana. ? [place], prune, carrot, or tomato juice. ? Baked [...] fish oil, or vitamin B6. ? Take nybn-rol-writejn and prescription medicines only as told by your health care provider. These include supplements. What foods sh (more content not included)... Normal [facility] Urology Office/Clinic Noteon 06-14-2023 Urology Office/Clinic [...] with voice recognition artificial intelligence software, specifically [employer], [employer] and or [employer]. Substitutions may have occurred due to the [...] prostate) TRUS/bx 07/05/[address] Carlisle. Path [place] 6 (3+3) x2 involving 15%. Pt states [...] the PSA. Follow-up With When Contact Information MARSHALL OLIVEROS, Ni P, URL [address] [place] [address]- Additional Instructions: 1 year Patient Education [...] Hydronephrosis with uretera (more content not included)... [facility] Comment on above: Result Comment: Elec tronically Signed By: Ni OLIVARES MD\.br\Date and Time Signed: 06/14/23 09:55 EST\.br\Electronically Co-Signed By: Dahiana Joseph\.br\Date and Time Co-Signed: 06/14/23 09:48 EST\.br\Electronically Co-Signed By: Dahiana Joseph\.br\Date and Time Co-Signed: 06/14/23 09:50 EST Office Visiton 01-26-2023 Follow-up visit [id number] Ruben Smyth 1940 M Date Provider Department Center 01/26/2023 JENNIFER SMITH FABIOLA Mcneill [facility] Family History Problem Relation Age of Onset No Known Problems Mother No Known Problems Father Family Status - Relation Status Age at Mother Father Level of Service:82547 AR OFFICE/OUTPATIENT ESTABLISHED LOW MDM 20-29 MIN [facility] Consent for Procedure/Surger yon 12-21-2022 Consent for Procedure/Surgery [id number]#1.00CD:127 Normal [facility] IntraOperative Documentson 0 12-21-2022 IntraOperative Documents [id number]#1.00CD:127 [facility] Consent for Treatmenton 11-26 Consent for Treatment [id number]#1.00CD:127 [facility] Inpatient Patient Summaryon 12-20-2022 Inpatient Patient Summary [place] [id number] Clinical Summary Person Information Name: VICTORINO SMYTH Age: 82 Years : 1940 Sex: Male PCP: Tray Alfaro MD Marital Status: Race: White Ethnicity: Non- or Language: Mongolian Visit Id: Visit Reason: RIGHT KIDNEY STONE Speciality: Acuity: Enc Type: Outpatient Med Service: Surgery Arrival: 12/20/2022 15:00:15 Discharge: Dispo Type: Address: [address] [place] [id number] Provider Notes: Diagnosis: Problems Active Flank pain [...] Follow up: With: Address: When: Ni OLIVARES [address] [place] [address], [address], [place] [address] [facility] (1) Within 6 months Comments: Call for [...] Cystoscopy with Stent Removal Discharge Instructions (Custom) [facility] Main OR Intraoperative Recor don 12-20-2022 Main OR Intraoperative Record IntraOp Document Type FTURO Summary Primary Physician: Ni OLIVARES MD Finalized Date/Time: 12/20/22 16:29:12 Pt. Name: VICTORINO SMYTH Bryan RuedaB./Sex: 1940 Male Med Rec #: [id number] Physician: Ni OLIVARES MD Financial #: [id number] Pt. Type: O Room/Bed: / Admit/Disch: 12/20/22 [...] Shabnam Garcia Role Performed Surgeon - Primary Vocational Rehabilitation Specialist - Primary Scrub - Primary Time [...] Position Verified Availability Equipment, Medication Time Out MARSHALL OLIVEROS, Ni Garcia, Verified (If Participants Gemma [...] Menendez RN 12/20/22 16:29 Normal [facility] Main OR Preoperative Recordo n 12-20-2022 Main OR Preoperative Record Holding Area Document Type FTURO Summary Primary Physician: Ni OLIVARES MD Finalized Date/Time: 12/20/22 15:39:13 Pt. Name: HAJA VICTORINODANYELLE Dubon/Sex: 1940 Male Med Rec #: [id number] Physician: Ni OLIVARES MD Financial #: [id number] Pt. Type: O Room/Bed: / Admit/Disch: 12/20/22 [...] Gonzales RN 12/20/22 15:39 Normal [facility] Operative Reporton Operative Report Patient: SHERYL [...] repeat 24-hour urine/metabolic work-up. Normal [facility] Comment on above: Result Comment: Elec tronically Signed By: Ni OLIVARES MD\.br\Date and Time Signed: 12/20/22 16:29 EDT Outpatient Surgery Discharge Instructionon 12-20-2022 Outpatient Surgery Discharge Instruction [place] [id number] Patient Discharge Instructions PERSON INFORMATION Name: VICTORINO [...] up: With: Address: When: Ni OLIVARES [address], [address], [facility] [address] [place] [id number] [facility] (1) Within 6 months Comments: Call for [...] to serve you. Thank you for choosing [facility] Normal [facility] Postoperative Documentson Postoperative Documents [id number]#1.00CD:127 Normal [facility] Calculus Analysison 12-09-19 23 Color (Stone) Olsen Invalid Interpretation Code [facility] Comment on above: Performed By: #### 2 [id number] #### [facility] [address] [place] [address] Composition Comment Invalid Interpretation Code [facility] Comment on above: Result Comment: Perc entage (Represents the % composition) Performed By: #### 2 [id number] #### [facility] [address] [place] [address] Disclaimer: Comment Invalid Interpretation Code [facility] Comment on above: Result Comment: This test was developed and its performance characteristics determined by [facility]. It has not been cleared or approved by the Food and Drug Administration. Performed at: [address] [id number] PhD Jarvis Bauman Performed By: #### 2 [id number] #### [facility] [address] [place] [address] Laboratory comment Dangelo (Report) Comment Invalid Interpretation Code [facility] Comment on above: Result Comment: Padmini gutierrez questions regarding Calculi Analysis contact [facility] at: [phone]. Performed By: #### 2 [id number] #### [facility] [address] [place] [address] Please Note: Comment Invalid Interpretation Code [facility] Comment on above: Result Comment: Calc salazar report will follow via computer, mail or manager apple delivery. Performed By: #### 2 [id number] #### [facility] [address] [place] [address] Size (Stone) [Entitic vol] 3x5 Invalid Interpretation Code [facility] Comment on above: Result Comment: Mult iple pieces received. Dimensions of the largest piece reported. Performed By: #### 2 [id number] #### [facility] [address] [place] [address] Specimen source subject Nom Comment Invalid Interpretation Code [facility] Comment on above: Result Comment: Righ t Ureter Performed By: #### 2 [id number] #### [facility] [address] [place] [address] Stone Photo Comment Invalid Interpretation Code [facility] Comment on above: Result Comment: Phot ograph will follow under a separate cover Performed By: #### 2 [id number] #### [facility] [address] [place] [address] Urate (Stone) [Mass fraction] 100 % Invalid Interpretation Code [facility] Comment on above: Performed By: #### 2 [id number] #### [facility] [address] [place] [address] Weight (Stone) 131 mg Invalid Interpretation Code [facility] Comment on above: Performed By: #### 2 [id number] #### [facility] [address] [place] [address] Pre-Certification Formon Pre-Certification Form [id number]#1.00CD:127 [facility] IntraOperative Documentson 0 12-06-2022 IntraOperative Documents [id number]#1.00CD:127 [facility] Consent for Anesthesiaon Consent for Anesthesia [id number]#1.00CD:127 [facility] Discharge Instructionson Discharge Instructions [id number]#1.00CD:127 [facility] IntraOperative Documentson 0 12-03-2022 IntraOperative Documents [id number]#1.00CD:127 [facility] IntraOperative Documents [id number]#1.00CD:127 [facility] Main OR Intraoperative Recor don 12-03-2022 Main OR Intraoperative Record [facility] Preoperative Documentson Preoperative Documents [id number]#1.00CD:127 [facility] Preoperative Documents [id number]#1.00CD:127 [facility] Preoperative Documents [id number]#1.00CD:127 [facility] Progress Note-Physicianon Progress Note-Physician Patient: [...] ( To home ). Normal [facility] Comment on above: Result Comment: Elec [...] Problems Acute kidney failure / SNOMED CT 94064484 / Confirmed BPH with urinary obstruction / SNOMED CT 7906115770 / Confirmed Chronic obstructive pulmonary disease (COPD) / SNOMED CT 57071528 / Confirmed Coronary artery disease / SNOMED CT 08871492 / Confirmed Anticoagulated / SNOMED CT 003306319 / Confirmed Erectile dysfunction / SNOMED CT 9110686474 / Confirmed Flank pain / SNOMED CT 305318510 / Confirmed H/O: hypothyroidism / SNOMED CT 052977295 / Confirmed Hydronephrosis / SNOMED CT 51465861 / Confirmed Hydronephrosis with ureteral calculus / SNOMED CT 9127867197 / Confirmed Hyperlipidemia / SNOMED CT 41971315 / Confirmed Hyperplastic colon polyp / SNOMED CT 4074424880 / Confirmed Hypertension / SNOMED CT 6101341493 / Confirmed Kidney stone / SNOMED CT 654855132 / Confirmed Prostate cancer / SNOMED CT 2918797542 / Confirmed Myocardial infarct / SNOMED CT 25303018 / Confirmed BPH associated with nocturia / SNOMED CT 1222885098 / Confirmed Occult blood in stools / SNOMED CT 09722607 / Confirmed Postprandial diarrhea / SNOMED CT 27939786 / Confirmed Elevated PSA / SNOMED CT 2572531639 / Confirmed Urinary retention / SNOMED CT 449303876 / Confirmed Rheumatoid arthritis / SNOMED CT 214748467 / Confirmed DM (diabetes mellitus), type 2 / SNOMED CT 599109537 / Confirmed Ureteral stone / SNOMED CT 26775199 / Confirmed Histories Procedure history: ESWL of kidney ([id number]) on 10/07/2022 at 82 Years. Transurethral resection of prostate ([id number]) on 08/01/2019 at 79 Years. Biopsy of prostate ([id number]) on 07/04/2019 at 78 Years. cystoscopy, bilateral, ureteroscopy, laser lithotripsy on 06/27/2019 at 78 Years. TRIGGER FINGER RELEASE. Neuroplasty and/or transposition; median nerve at carpal tunnel (18553). Percutaneous transluminal coronary angioplasty; single major coronary artery or branch (12236). Patient has a coronary artery stent (Peri2) [...] adequate air exchange. Cardiovascular: Regular rhythm. Plan [place] [employer] Anesthesiologists (ASA) physical status classification: Class III. Anesthetic Preoperative Plan: Anesthesia General. Normal [facility] Comment on above: Result Comment: Elec tronically Signed By: Reji Hidalgo DO, Ty Khanna\.br\Date and Time Signed: 12/03/22 08:21 EDT Capillary Glucose POCon Glucose [Mass/Vol] 82 mg/dL Normal 55-99 [facility] Comment on above: Result Comment: Jackelin quach RN/ Performed By: #### 2 [id number] #### [facility] [address] [place] [address] Consent for Procedure/Surger yon 12-02-2022 Consent for Procedure/Surgery [id number]#[id number]:127 Normal [facility] Consent for Treatmenton Consent for Treatment [id number]#1.00CD:127 Normal [facility] Discharge Instructionson Discharge Instructions VICTORINO SMYTH [...] When: Comments: Call for followup appointment Where: [facility] [employer] [address] [address]- Business (1) Medications What How Much When Instructions Next Dose New doxycycline (doxycycline hyclate 100 mg Cap) 1 Capsules By Mouth 2 times a day Duration: 5 Days Pickup at [facility] #94071 Unchanged albuterol (Ventolin Diskus) 2 Puffs Inhalation [...] needed for Itching Pharmacy Information [id number]: [address], [place] [id number] [phone] Allergies ciprofloxacin (Rash) levothyroxine (Mouth swelling) liothyronine (Mouth (more content not included)... Normal [facility] Comment on above: Result Comment: Elec tronically Signed By: Shae BRITO, Jazmin Eli\.ruba\Date and Time Signed: 12/02/22 12:25 EDT H&P Updateon 12-02-2022 H&P Update [id number]:127 Normal [facility] Inpatient Patient Summaryon 12-02-2022 Inpatient Patient Summary [address] [address] [facility] Clinical Discharge Instructions PERSON INFORMATION Name: VICTORINO SMYTH PHYSICIANS Admitting Physician: Ni OLIVARES MD Attending Physician: Ni OLIVARES MD PCP: Tray Alfaro MD Discharge Diagnosis: Comment: PATIENT EDUCATION INFORMATION Instructions: Rpfh-Grtg-[id number] Utereroscopy,Lithotripsy, Stone Extraction, Stent Placement (Custom) Medication Leaflets: Follow up: With: Address: When: Ni OLIVARES [address] [place] [address], [address], [place] [phone] [facility] (1) Comments: Call for followup appointment MEDICATION LIST New Medications [id number], [address], [place] [id number], [phone] doxycycline (doxycycline hyclate 100 mg Cap) 1 [...] chin, and forhead Comment: Isamar [facility] Main OR PACU I Recordon Main OR PACU I Record PACU Phase I Docum ent Type FT Summary Primary Physician: Ni OLIVARES MD Finalized Date/Time: 12/02/22 12:58:10 Pt. Name: VICTORINO SMYTH Bryan Chatman./Sex: 1940 Male Med Rec #: [id number] Physician: Ni OLIVARES MD Financial #: [id number] Pt. Type: A Room/Bed: [facility] Admit/Disch: 12/02/22 09:31:57 - Institution: [...] Blanco RN 12/02/22 12:58 Normal [facility] Main OR PACU II Recordon Main OR PACU II Record PACU Phase II Doc ument Type FT Summary Primary Physician: Ni OLIVARES MD Finalized Date/Time: 12/02/22 13:45:57 Pt. Name: SMYTHVICTORINO./Sex: 1940 Male Med Rec #: [id number] Physician: Ni OLIVARES MD Financial #: [id number] Pt. Type: A Room/Bed: [facility] Admit/Disch: 12/02/22 09:31:57 - Institution: [...] Kaufman RN 12/02/22 13:45 Normal [facility] Main OR Preoperative Recordo n 12-02-2022 Main OR Preoperative Record PreOp Document Type FT Summary Primary Physician: Ni OLIVARES MD Finalized Date/Time: 12/02/22 11:00:33 Pt. Name: SMYTHVICTORINO./Sex: 1940 Male Med Rec #: [id number] Physician: Ni OLIVARES MD Financial #: [id number] Pt. Type: Room/Bed: [place] [address] Admit/Disch: 12/02/22 09:31:57 - Institution: Case Times [...] Borrego RN 12/02/22 11:00 Normal [facility] Monitor Recordon 12-02-2022 Monitor Record [id number]#[id number]:127 Normal [facility] Monitor Record [id number]#[id number]:127 Normal [facility] Operative Reporton 3 Operative Report Patient: [...] jelly placed per urethra. A well-lubricated 22 Swiss is urethroscope with 30 degree lens then [...] backloaded over the wire and a 4.7 Swiss Bard inlay double-J stent is passed into [...] None. Anesthesia type: General. Normal [facility] Comment on above: Result Comment: Elec tronically Signed By: Ni OLIVARES MD\.br\Date and Time Signed: 12/02/22 11:51 EDT Outpatient Surgery Discharge Instructionon 12-02-2022 Outpatient Surgery Discharge Instruction [place] [id number] Patient Discharge Instructions PERSON INFORMATION Name: VICTORINO [...] Follow up: With: Address: When: Ni OLIVARES [address] [place] [address], [address], [place] [phone] [facility] (1) Comments: Call for followup appointment Pharmacy Information: You may receive a survey from [facility] [employer] asking you to rate your care experience. Your feedback is important and will help us understand what we do well and how we can improve the quality of care we provide to you, your loved ones and our community. It?s an honor to serve you. Thank you for choosing [facility] HERE ARE THE MEDICATION CHANGES THAT OCCURRED DURING YOUR HOSPITAL STAY New Medications [id number], [address], [place] [id number], [phone] doxycycline (doxycycline hyclate 100 mg Cap) 1 [...] forhead PATIENT EDUCATION INFORMATION Instructions: [facility] [place], [place] Dr. Ni Omalley Post-operative Instructions for [...] (more content not included)... Normal [facility] Patient Education - Texton 0 12-02-2022 [...] (more content not included)... Normal [facility] XR Abdomen 1 Viewon 12-03-19 23 [...] in mGy = na DAP = na [facility] Consultation Noteon 11-29-19 Consultation Note [id number]#1.00CD:127 [facility] Outside Recordson 11-24-2022 Outside Records [id number]#1.00CD:127 [facility] C Urineon 11-20-2022 Bacteria identified [...] Locations R1: This test was performed at: [facility], [address] [place] [address], [address]- , [place], [facility] Comment on above: Performed By: #### 1 [id number], 0864845 ####[facility] [address] [place] [address] Albuminon 11-18-2022 Albumin [Mass/Vol] 4.0 g/dL Normal 3.3-5.0 [facility] Comment on above: Performed By: #### 2 119455, 4067492, 6724431, 51366389, 101861406, 0119209, 3852529, 3916157, 7218079 ####[facility] [address] [place] [address] Auto Diffon 11-18-2022 Basophils/100 WBC (Bld) 0.2 % Normal 0.0-2.0 [facility] Comment on above: Order Comment: Order Added by Discern Expert. Performed By: #### 2 [id number] #### [facility] [address] [place] [address] Basophils/Leukocytes Auto (Bld) [Pure # fraction] 0.0 E9/L Normal 0.0-0.2 [facility] Comment on above: Order Comment: Order Added by Discern Expert. Performed By: #### 2 [id number] #### [facility] [address] [place] [address] Eosinophils/100 WBC (Bld) 0.1 % Normal 0.0-8.0 [facility] Comment on above: Order Comment: Order Added by Discern Expert. Performed By: #### 2 [id number] #### [facility] [address] [place] [address] Eosinophils/Leukocytes Auto (Bld) [Pure # fraction] 0.0 E9/L Normal 0.0-0.5 [facility] Comment on above: Order Comment: Order Added by Discern Expert. Performed By: #### 2 [id number] #### [facility] [address] [place] [address] Lymphocytes/100 WBC (Bld) 8.6 % Low 14.0-50.0 [facility] Comment on above: Order Comment: Order Added by Discern Expert. Performed By: #### 2 [id number] #### [facility] [address] [place] [address] Lymphocytes/Leukocytes Auto (Bld) [Pure # fraction] 0.9 E9/L Low 1.0-4.0 [facility] Comment on above: Order Comment: Order Added by Discern Expert. Performed By: #### 2 [id number] #### [facility] [address] [place] [address] Monocytes/100 WBC (Bld) 7.1 % Normal 4.0-14.0 [facility] Comment on above: Order Comment: Order Added by Discern Expert. Performed By: #### 2 [id number] #### [facility] [address] [place] [address] Monocytes/Leukocytes Auto (Bld) [Pure # fraction] 0.7 E9/L Normal 0.2-1.0 [facility] Comment on above: Order Comment: Order Added by Discern Expert. Performed By: #### 2 [id number] #### [facility] [address] [place] [address] Neutrophils/100 WBC (Bld) 84.0 % High 36.0-75.0 [facility] Comment on above: Order Comment: Order Added by Discern Expert. Performed By: #### 2 [id number] #### [facility] [address] [place] [address] Neutrophils/Leukocytes Auto (Bld) [Pure # fraction] 8.7 E9/L High 2.0-7.5 [facility] Comment on above: Order Comment: Order Added by Discern Expert. Performed By: #### 2 [id number] #### [facility] [address] [place] [address] BMP 11-18-2022 Anion gap [Moles/Vol] 12 mmol/L Normal 6-16 [facility] Comment on above: Performed By: #### 2 [id number] #### [facility] [address] [place] [address] Calcium [Mass/Vol] 9.3 mg/dL Normal 8.9-11.1 [facility] Comment on above: Performed By: #### 2 [id number] #### [facility] [address] [place] [address] Chloride [Moles/Vol] 109 mmol/L Normal 101-111 [facility] Comment on above: Performed By: #### 2 [id number] #### [facility] [address] [place] [address] CO2 [Moles/Vol] 24 mmol/L Normal 21-31 [facility] Comment on above: Performed By: #### 2 [id number] #### [facility] [address] [place] [address] Creatinine [Mass/Vol] 2.5 mg/dL High 0.5-1.3 [facility] Comment on above: Performed By: #### 2 [id number] #### [facility] [address] [place] [address] Glucose [Mass/Vol] 130 mg/dL Normal 55-199 [facility] Comment on above: Result Comment: If t his glucose result represents a fasting glucose, interpretation should refer to the following reference range: 55-99 mg/dL Performed By: #### 2 [id number] #### [facility] [address] [place] [address] Potassium [Moles/Vol] 4.8 mmol/L Normal 3.5-5.3 [facility] Comment on above: Performed By: #### 2 [id number] #### [facility] [address] [place] [address] Sodium [Moles/Vol] 140 mmol/L Normal 135-145 [facility] Comment on above: Performed By: #### 2 [id number] #### [facility] [address] [place] [address] Urea nitrogen [Mass/Vol] 38 mg/dL High 5-21 [facility] Comment on above: Performed By: #### 2 [id number] #### [facility] [address] [place] [address] Urea nitrogen/Creatinine [Mass ratio] 15 No Units Normal 10-20 [facility] Comment on above: Performed By: #### 2 [id number] #### [facility] [address] [place] [address] CBC w/ Auto Diffon 05-25-202 3 Erythrocyte distribution width (RBC) [Ratio] 13.5 % Normal 10.9-14.2 [facility] Comment on above: Performed By: #### 2 [id number] #### [facility] [address] [place] [address] Hematocrit (Bld) [Volume fraction] 34.9 % Low 37.7-49.0 [facility] Comment on above: Performed By: #### 2 45362588 #### [facility] [address] [place] [address] Hemoglobin (Bld) [Mass/Vol] 11.7 g/dL Low 13.5-17.5 [facility] Comment on above: Performed By: #### 2 34404566 #### [facility] [address] [place] [address] MCH (RBC) [Entitic mass] 32.1 pg Normal 27.0-34.0 [facility] Comment on above: Performed By: #### 2 39975813 #### [facility] [address] [place] [address] MCHC (RBC) [Mass/Vol] 33.6 g/dL Normal 31.4-36.0 [facility] Comment on above: Performed By: #### 2 52444075 #### [facility] [address] [place] [address] MCV (RBC) [Entitic vol] 95.4 fL Normal 80.0-100.0 [facility] Comment on above: Performed By: #### 2 54514562 #### [facility] [address] [place] [address] Platelet mean volume (Bld) [Entitic vol] 8.7 fL Normal 6.4-10.8 [facility] Comment on above: Performed By: #### 2 47576855 #### [facility] [address] [place] [address] Platelets (Bld) [#/Vol] 214.0 E9/L Normal 150.0-500. 0 [facility] Comment on above: Performed By: #### 2 56362542 #### [facility] [address] [place] [address] RBC (Bld) [#/Vol] 3.7 E12/L Low 4.3-5.9 [facility] Comment on above: Performed By: #### 2 56213819 #### [facility] [address] [place] [address] WBC corrected for nucl RBC Auto (Bld) [#/Vol] 10.4 E9/L Normal 4.0-11.0 [facility] Comment on above: Performed By: #### 2 59326769 #### [facility] [address] [place] [address] Consent for Treatmenton 10-26 Consent for Treatment [id number]#[id number]:127 Normal [facility] Consent for Treatment [id number]#[id number]:127 Normal [facility] Ferritinon 11-18-2022 Ferritin [Mass/Vol] 192 ng/mL Normal 24-336 [facility] Comment on above: Result Comment: NORM ALS MEN <30 YRS 16-132 ng/mL MEN >30 YRS 8-338 ng/mL WOMEN (PREMEN) 6-104 ng/mL WOMEN (POSTMEN) 12-210 ng/mL Performed By: #### 2 946589, 9956097, 8250910, 57002021, 270619669, 4536770, 2797638, 9510169, 2380005 ####[facility] [address] [place] [address] Folateon 11-18-2022 Folate [Mass/Vol] ng/mL Normal >=6.7 [facility] Comment on above: Performed By: #### 2 846321, 0207551, 0938444, 25954930, 063017854, 9897990, 3329733, 0379010, 3834390 ####[facility] [address] [place] [address] Ironon 11-18-2022 Iron [Mass/Vol] 102 microgram/dL Normal 35-153 [facility] Comment on above: Performed By: #### 2 924946, 0506455, 1471744, 34084841, 547322902, 4404049, 3938410, 1921880, 1572749 ####[facility] [address] [place] [address] PT & PTTon 11-18-2022 aPTT Coag (PPP) [Time] 27.1 second(s) Normal 25.1-36.5 [facility] Comment on above: Result Comment: Para [...] same coagulation reagent and instrumentation as [facility]. Currently there are no coagulation studies available worldwide for children to 14 days, and no normal ranges. Heparin therapeutic range (represented by Anti-Factor Xa activity of 0.2 - 0.4 U/mL) corresponds to PTT of 56.6 - 109.0 sec. Performed By: #### 2 [id number] #### [facility] [address] [place] [address] INR Coag (PPP) [Relative time] 1.1 {INR} Invalid Interpretation Code [facility] Comment on above: Result Comment: INR results are specifically intended to assess patients stabilized on long-term Anticoagulation therapy suggested INR?s ?Less Intensive Anticoagulation? 2.0 ? 3.0 Conventional Range 3.0 ? 4.5 Performed By: #### 2 [id number] #### [facility] [address] [place] [address] PT Coag (PPP) [Time] 11.9 second(s) Normal 9.4-12.5 [facility] Comment on above: Result Comment: 15 [...] same coagulation reagent and instrumentation as [facility]. Currently there are no coagulation studies available worldwide for children to 14 days, and no normal ranges. Performed By: #### 2 [id number] #### [facility] [address] [place] [address] Phosphoruson 11-18-2022 Phosphate [Mass/Vol] 4.4 mg/dL Normal 1.9-4.6 [facility] Comment on above: Performed By: #### 2 210202, 6226332, 9303670, 21475411, 866236305, 3489622, 0002008, 0697434, 1246784 ####[facility] [address] [place] [address] Physician Orderon 11-18-2022 Physician Order [id number]:127 Normal [facility] TIBC Calculatedon 11-18-2022 Iron binding capacity [Mass/Vol] 292 microgram/dL Normal 250-400 [facility] Comment on above: Performed By: #### 2 717275, 9141603, 4360802, 69774858, 652799594, 4254721, 5825296, 3240957, 5876012 ####[facility] [address] [place] [address] Transferrin [Mass/Vol] 208 mg/dL Normal 200-370 [facility] Comment on above: Performed By: #### 2 913787, 6267722, 5197105, 38146461, 084249328, 9876580, 2808548, 1451375, 5806006 ####[facility] [address] [place] [address] U Protein/Creat Ratioon 10-26 Albumin Elph (U) [Mass fraction] 25.2 mg/dL Invalid Interpretation Code [facility] Comment on above: Result Comment: The reference range and other method performance specifications have not been established for this test; results should be integrated into the clinical context for interpretation. Performed By: #### 1 [id number] #### [facility] [address] [place] [address] Creatinine (U) [Mass/Vol] 80.6 mg/dL Invalid Interpretation Code [facility] Comment on above: Result Comment: The reference range and other method performance specifications have not been established for this test; results should be integrated into the clinical context for interpretation. Performed By: #### 1 [id number] #### [facility] [address] [place] [address] U Prot/Creat Ratio 312.70 mg/gm Cr High .00-200.00 [facility] Comment on above: Performed By: #### 1 [id number] #### [facility] [address] [place] [address] UA With Cult Reflexon 2022 Bilirubin Ql (U) Negative Normal Negative [facility] Comment on above: Performed By: #### 1 8944270, 1553340 #### [facility] [address] [place] [address] Clarity (U) CLEAR Normal Clear [facility] Comment on above: Performed By: #### 1 6005273, 4655627 #### [facility] [address] [place] [address] Color (U) YELLOW Normal Yellow [facility] Comment on above: Performed By: #### 1 3951462, 9898210 #### [facility] [address] [place] [address] Epithelial cells.squamous LM.HPF (Urine sed) [#/Area] 0-2 Normal 0-2 [facility] Comment on above: Performed By: #### 1 0239613, 9001914 #### [facility] [address] [place] [address] Glucose Test strip (U) [Mass/Vol] Negative Normal Negative [facility] Comment on above: Performed By: #### 1 9169381, 0806532 #### [facility] [address] [place] [address] Hemoglobin Ql (U) 3+ Abnormal Negative [facility] Comment on above: Performed By: #### 1 7533790, 3400855 #### [facility] [address] [place] [address] Ketones (U) [Mass/Vol] Negative Normal Negative [facility] Comment on above: Performed By: #### 1 2911835, 7233592 #### [facility] [address] [place] [address] [place].plasma/[place] .RBC (Bld) [Mass ratio] >30 Abnormal 0-3 [facility] Comment on above: Performed By: #### 1 1588418, 7753520 #### [facility] [address] [place] [address] Nitrite Ql (U) Negative Normal Negative [facility] Comment on above: Performed By: #### 1 7030739, 1156155 #### [facility] [address] [place] [address] pH (U) 6.0 [pH] Invalid Interpretation Code 5.0-9.0 [facility] Comment on above: Performed By: #### 1 9639514, 1551485 #### [facility] [address] [place] [address] Protein (U) [Mass/Vol] TRACE Abnormal Negative [facility] Comment on above: Performed By: #### 1 4154235, 0634710 #### [facility] [address] [place] [address] Specific gravity (U) [Rel density] 1.020 Invalid Interpretation Code 1.005-1.03 0 [facility] Comment on above: Performed By: #### 1 8421150, 8837698 #### [facility] [address] [place] [address] Type of Urine collection method Clean Catch Normal [facility] Comment on above: Performed By: #### 1 0308624, 5433180 #### [facility] [address] [place] [address] Urobilinogen Qn (U) 0.2 {Wil'U}/dL Normal 0.0-1.0 [facility] Comment on above: Performed By: #### 1 4010276, 2823809 #### [facility] [address] [place] [address] WBC Auto Ql (U) 1+ Abnormal Negative [facility] Comment on above: Performed By: #### 1 7219112, 7780620 #### [facility] [address] [place] [address] WBC LM.HPF (Urine sed) [#/Area] 0-5 Normal 0-5 [facility] Comment on above: Performed By: #### 1 2987951, 4001595 #### [facility] [address] [place] [address] Uric Acidon 11-18-2022 Urate [Mass/Vol] 7.0 mg/dL Normal 2.2-7.4 [facility] Comment on above: Performed By: #### 2 429086, 5630557, 4579178, 16734549, 890068822, 4583945, 8145001, 3362963, 3051332 ####[facility] [address] [place] [address] Vit B12on 11-18-2022 Cobalamin (Vitamin B12) [Mass/Vol] 495 pg/mL Normal 50-1500 [facility] Comment on above: Performed By: #### 2 532859, 6457644, 1181646, 26559984, 012353027, 3200259, 9172170, 1073800, 4080690 ####[facility] [address] [place] [address] Vitamin D 25 Hydroxyon 11-18 25-hydroxyvitamin D3 [Mass/Vol] 64.8 ng/mL Normal 30.0-100.0 [facility] Comment on above: Result Comment: Vit grewal D deficiency has been defined as a level of serum 25-OH vitamin D less than 20 ng/mL (1,2) by the [place] of [employer] and an Endocrine Society practice guideline. The Endocrine Society further defined vitamin D insufficiency as a level between 21 and 29 ng/mL (2). 1. IOM ([place] of [employer]). 2010. Dietary reference intakes for calcium and D. [place]: The National Academies Press. 2. Kortney MF, Candie NC, Ekaterina WEINBERG, et al. Evaluation, treatment, and prevention of vitamin D deficiency: an Endocrine Society clinical practice guideline. JCEM. 2010; 96 (7):1911-30. Performed By: #### 2 793726, 7141504, 4907791, 62734406, 619051244, 4828267, 4547971, 7201434, 3527930 ####[facility] [address] [place] [address] eGFRon 11-18-2022 GFR/1.73 sq M.predicted among non-blacks MDRD (S/P/Bld) [Vol rate/Area] 25 mL/min/1.73 m2 Low >=59 [facility] Comment on above: Order Comment: Order added by Discern Expert. Result Comment: Supervisor Refining christa kidney disease could be indicated at eGFR's of less than 60 mL/min/1.73m2. Kidney failure is indicated at less than 15 mL/min/1.73m2. Performed By: #### 2 [id number] #### [facility] [address] [place] [address] Office Visiton 11-17-2022 Follow-up visit [id number] Ruben Smyth 1940 M Date Provider Department Center 11/17/2022 IRIS BLACKMAN [facility] Family History Problem Relation Age of Onset No Known Problems Mother No Known Problems Father Family Status - Relation Status Age at Mother Father Level of Service:32013 AR OFFICE/OUTPATIENT ESTABLISHED MOD MDM 30-39 MIN Normal [facility] Lab Reportson 11-12-2022 Lab Reports [id number]#1.00CD:127 Normal [facility] Reports [id number]#1.00CD:127 Normal [facility] Reports [id number]#1.00CD:127 Normal [facility] Lab Reports [id number]#1.00CD:127 Normal [facility] PSA, FREE AND TOTAL RATIOon 11-09-2022 % Free PSA 11.3 % Normal [facility] Comment on above: Result Comment: The table [...] men. Performed By: #### P SAFREE #### [facility] [address] [place] [address] Dr. Alicia Patel Prostate specific Ag [Mass/Vol] 4.6 ng/mL Critically high 0.0-4.0 [facility] Comment on above: Result Comment: Dwight CARRILLOIA methodology. . According to the [employer], Serum PSA should decrease and [...] disease. Performed By: #### P SAFREE #### [facility] [address] [place] [address] Dr. Alicia Patel PSA, Free 0.52 ng/mL Normal N/A [facility] Comment on above: Result Comment: Dwight JUAREZ methodology. Performed By: #### P SAFREE #### [facility] [address] [place] [address] Dr. Alicia Patel INSULINon 11-08-2022 Insulin 18.5 uIU/mL Normal 2.6-24.9 [facility] Comment on above: Performed By: #### T SH, LIPID, T4, FT3, CMP #### [facility] [address] [place] [address] Dr. Alicia Patel CBC AUTO DIFFon 11-06-2022 BASO # 0.0 103/ul Normal 0.0-0.1 [facility] Comment on above: Performed By: #### C BC #### [facility] [address] [place] [address] Dr. Alicia Patel Basophils/100 WBC (Bld) 0.4 % Normal 0.2-2.0 [facility] Comment on above: Performed By: #### C BC #### [facility] [address] [place] [address] Dr. Alicia Patel EO # 0.2 103/ul Normal 0.0-0.7 [facility] Comment on above: Performed By: #### C BC #### [facility] [address] [place] [address] Dr. Alicia Patel Eosinophils/100 WBC (Bld) 4.6 % Normal 0.9-7.0 [facility] Comment on above: Performed By: #### C BC #### [facility] [address] [place] [address] Dr. Alicia Patel Erythrocyte distribution width (RBC) [Ratio] 13.2 % Normal 11.0-15.0 [facility] Comment on above: Performed By: #### C BC #### [facility] [address] [place] [address] Dr. Alicia Patel Hematocrit (Bld) [Volume fraction] 34.6 % Critically low 42.0-54.0 [facility] Comment on above: Performed By: #### C BC #### [facility] [address] [place] [address] Dr. Alicia Patel Hemoglobin (Bld) [Mass/Vol] 11.4 g/dL Critically low 14.0-18.0 [facility] Comment on above: Performed By: #### C BC #### [facility] [address] [place] [address] Dr. Alicia Patel IG # 0.03 10e3/ul Normal 0.00-0.03 [facility] Comment on above: Performed By: #### C BC #### [facility] [address] [place] [address] Dr. Alicia Patel IG % 0.6 % Critically high 0.0-0.5 [facility] Comment on above: Performed By: #### C BC #### [facility] [address] [place] [address] Dr. Alicia Patel LYMPH # 0.9 103/ul Critically low 1.2-3.8 [facility] Comment on above: Performed By: #### C BC #### [facility] [address] [place] [address] Dr. Alicia Patel Lymphocytes/100 WBC (Bld) 16.3 % Critically low 20.5-60.0 [facility] Comment on above: Performed By: #### C BC #### [facility] [address] [place] [address] Dr. Alicia Patel MANUAL DIFF REQ NO Normal [facility] Comment on above: Performed By: #### C BC #### [facility] [address] [place] [address] Dr. Alicia Patel MCH (RBC) [Entitic mass] 32.9 pg Normal 25.9-34.0 [facility] Comment on above: Performed By: #### C BC #### [facility] [address] [place] [address] Dr. Alicia Patel MCHC (RBC) [Mass/Vol] 32.9 g/dL Normal 29.9-35.2 [facility] Comment on above: Performed By: #### C BC #### [facility] [address] [place] [address] Dr. Alicia Patel MCV (RBC) [Entitic vol] 99.7 fL Critically high 80.0-94.0 [facility] Comment on above: Performed By: #### C BC #### [facility] [address] [place] [address] Dr. Alicia Patel MONO # 0.6 103/ul Normal 0.3-0.8 [facility] Comment on above: Performed By: #### C BC #### [facility] [address] [place] [address] Dr. Alicia Patel Monocytes/100 WBC (Bld) 12.0 % Normal 1.7-12.0 [facility] Comment on above: Performed By: #### C BC #### [facility] [address] [place] [address] Dr. Alicia Patel NEUT # 3.5 103/ul Normal 1.4-6.5 [facility] Comment on above: Performed By: #### C BC #### [facility] [address] [place] [address] Dr. Alicia Patel Neutrophils/100 WBC (Bld) 66.1 % Normal 43.0-75.0 [facility] Comment on above: Performed By: #### C BC #### [facility] [address] [place] [address] Dr. Alicia Patel Platelet mean volume (Bld) [Entitic vol] 10.1 fL Normal 9.5-13.5 [facility] Comment on above: Performed By: #### C BC #### [facility] [address] [place] [address] Dr. Alicia Patel PLT 168 103/ul Normal 150-450 [facility] Comment on above: Performed By: #### C BC #### [facility] [address] [address] [address] Alicia Patel RBC 3.47 106/ul Critically low 4.70-6.10 [facility] Comment on above: Performed By: #### C BC #### [facility] [address] [address] [address] Alicia Patel WBC 5.2 103/ul Normal 4.0-11.0 [facility] Comment on above: Performed By: #### C BC #### [facility] [address] [address] [address] Alicia Patel FREE T3on 11-06-2022 FREE T3 2.78 pg/mlL Normal 2.18-3.98 [facility] Comment on above: Performed By: #### U RTPCR #### [facility] [address] [place] [address] Dr. Alicia Patel GLYCOHEMOGLOBIN A1Con 2022 ADA RECOMMENDATION SEE BELOW Normal [facility] Comment on above: Result Comment: ADA RECOMMENDED LIMIT 4.0 - 6.0 ADA THERAPEUTIC TARGET < 7.0 ACTION SUGGESTED > 7.0 Performed By: #### T SH, LIPID, T4, FT3, CMP #### [facility] [address] [address] [address] Alicia Patel Glucose [Mass/Vol] 120 mg/dL Normal [facility] Comment on above: Performed By: #### T SH, LIPID, T4, FT3, CMP #### [facility] [address] [place] [address] Dr. Alicia Patel HbA1c (Bld) [Mass fraction] 5.8 % Normal 4.5-6.2 [facility] Comment on above: Performed By: #### T SH, LIPID, T4, FT3, CMP #### [facility] [address] [place] [address] Dr. Alicia Patel LIPID PROFILEon 11-06-2022 CHOL-HDL RATIO NORM SEE BELOW Normal [facility] Comment on above: Result Comment: 3.3 - 4.4 LOW RISK 4.4 - 7.1 AVERAGE RISK 7.1 - 11.0 MODERATE RISK >11.0 HIGH RISK Performed By: #### U RTPCR #### [facility] [address] [address] [address] Alicia Patel Cholesterol [Mass/Vol] 107 mg/dL Normal <=200 Th [facility] Comment on above: Performed By: #### U RTPCR #### [facility] [address] [address] [address] Alicia Patel Cholesterol in HDL [Mass/Vol] 34 mg/dL Critically low 40-60 [facility] Comment on above: Performed By: #### U RTPCR #### [facility] [address] [place] [address] Dr. Alicia Patel Cholesterol in LDL [Mass/Vol] 58.8 mg/dL Normal [facility] Comment on above: Performed By: #### U RTPCR #### [facility] [address] [place] [address] Dr. Alicia Patel Cholesterol.total/Chol esterol in HDL [Mass ratio] 3.1 {ratio} Normal [facility] Comment on above: Performed By: #### U RTPCR #### [facility] [address] [place] [address] Dr. Alicia Patel HDL NORMAL > or = 60 mg/dl - LO W CARDIOVASCULAR RISK <40 mg/dl - HIGH CARDIOVASCULAR RISK Normal [facility] Comment on above: Performed By: #### U RTPCR #### [facility] [address] [address] [address] Alicia Patel LDL CALC NORMAL SEE BELOW Normal [facility] Comment on above: Result Comment: <100 mg/dl OPTIMAL 100 - 129 mg/dl NEAR OR ABOVE OPTIMAL 130 - 159 mg/dl BORDERLINE HIGH 160 - 189 mg/dl HIGH >190 mg/dl VERY HIGH Performed By: #### U RTPCR #### [facility] [address] [place] [address] Dr. Alicia Patel Triglyceride [Mass/Vol] 71 mg/dL Normal <=150 [facility] Comment on above: Performed By: #### U RTPCR #### [facility] [address] [place] [address] Dr. Alicia Patel VLDL CALC 14.2 mg/dL Normal [facility] Comment on above: Performed By: #### U RTPCR #### [facility] [address] [place] [address] Dr. Alicia Patel PROF 14(COMP METB)on 023 Albumin [Mass/Vol] 3.4 g/dL Normal 3.4-5.0 [facility] Comment on above: Performed By: #### T SH, LIPID, T4, FT3, CMP #### [facility] [address] [place] [address] Dr. Alicia Patel Albumin/Globulin [Mass ratio] 0.9 {ratio} Normal [facility] Comment on above: Performed By: #### T SH, LIPID, T4, FT3, CMP #### [facility] [address] [place] [address] Dr. Alicia Patel ALP [Catalytic activity/Vol] 75 U/L Normal 46-116 [facility] Comment on above: Performed By: #### T SH, LIPID, T4, FT3, CMP #### [facility] [address] [place] [address] Dr. Alicia Patel ALT [Catalytic activity/Vol] 31 U/L Normal 16-63 [facility] Comment on above: Performed By: #### T SH, LIPID, T4, FT3, CMP #### [facility] [address] [place] [address] Dr. Alicia Patel Anion gap [Moles/Vol] 14.4 mmol/L Normal [facility] Comment on above: Performed By: #### T SH, LIPID, T4, FT3, CMP #### [facility] [address] [place] [address] Dr. Alicia Patel AST [Catalytic activity/Vol] 23 U/L Normal 15-37 [facility] Comment on above: Performed By: #### T SH, LIPID, T4, FT3, CMP #### [facility] [address] [place] [address] Dr. Alicia Patel Bilirubin [Mass/Vol] 0.5 mg/dL Normal 0.2-1.0 [facility] Comment on above: Performed By: #### T SH, LIPID, T4, FT3, CMP #### [facility] [address] [place] [address] Dr. Alicia Patel Calcium [Mass/Vol] 8.8 mg/dL Normal 8.5-10.1 [facility] Comment on above: Performed By: #### T SH, LIPID, T4, FT3, CMP #### [facility] [address] [place] [address] Dr. Alicia Patel Chloride [Moles/Vol] 110 mmol/L Critically high 98-107 [facility] Comment on above: Performed By: #### T SH, LIPID, T4, FT3, CMP #### [facility] [address] [place] [address] Dr. Alicia Patel CO2 [Moles/Vol] 24.2 mmol/L Normal 21.0-32.0 [facility] Comment on above: Performed By: #### T SH, LIPID, T4, FT3, CMP #### [facility] [address] [place] [address] Dr. Alicia Patel Creatinine [Mass/Vol] 2.41 mg/dL Critically high 0.70-1.30 [facility] Comment on above: Performed By: #### T SH, LIPID, T4, FT3, CMP #### [facility] [address] [place] [address] Dr. Alicia Patel EGFR-AF TAJIK 32 mL/min/1.73m2 Critically low >=60 [facility] Comment on above: Performed By: #### T SH, LIPID, T4, FT3, CMP #### [facility] [address] [place] [address] Dr. Alicia Patel EGFR-NON AF TAJIK 26 mL/min/1.73m2 Critically low >=60 [facility] Comment on above: Performed By: #### T SH, LIPID, T4, FT3, CMP #### [facility] [address] [place] [address] Dr. Alicia Patel Globulin (S) [Mass/Vol] 3.6 g/dL Normal [facility] Comment on above: Performed By: #### T SH, LIPID, T4, FT3, CMP #### [facility] [address] [place] [address] Dr. Alicia Patel Glucose [Mass/Vol] 72 mg/dL Critically low 74-106 [facility] Comment on above: Performed By: #### T SH, LIPID, T4, FT3, CMP #### [facility] [address] [address] [address] Alicia Patel Potassium [Moles/Vol] 4.6 mmol/L Normal 3.5-5.1 [facility] Comment on above: Performed By: #### T SH, LIPID, T4, FT3, CMP #### [facility] [address] [place] [address] Dr. Alicia Patel Protein [Mass/Vol] 7.0 g/dL Normal 6.4-8.2 [facility] Comment on above: Performed By: #### T SH, LIPID, T4, FT3, CMP #### [facility] [address] [place] [address] Dr. Alicia Patel Sodium [Moles/Vol] 144 mmol/L Normal 136-145 [facility] Comment on above: Performed By: #### T SH, LIPID, T4, FT3, CMP #### [facility] [address] [place] [address] Dr. Alicia Patel Urea nitrogen [Mass/Vol] 32.0 mg/dL Critically high 7.0-18.0 [facility] Comment on above: Performed By: #### T SH, LIPID, T4, FT3, CMP #### [facility] [address] [place] [address] Dr. Alicia Patel Urea nitrogen/Creatinine [Mass ratio] 13.3 mg/mg Normal [facility] Comment on above: Performed By: #### T SH, LIPID, T4, FT3, CMP #### [facility] [address] [place] [address] Dr. Alicia Patel T4on 11-06-2022 T4 [Mass/Vol] 7.90 ug/dL Normal 4.50-12.10 [facility] Comment on above: Performed By: #### T SH, LIPID, T4, FT3, CMP #### [facility] [address] [address] [address] Alicia Patel TSHon 11-06-2022 TSH 0.263 uIU/mL Critically low 0.358-3.74 0 [facility] Comment on above: Performed By: #### T SH, LIPID, T4, FT3, CMP #### [facility] [address] [address] [address] Alicia Patel URIC ACID SERUMon 11-06-2022 Urate [Mass/Vol] 7.3 mg/dL Critically high 3.5-7.2 [facility] Comment on above: Performed By: #### T SH, LIPID, T4, FT3, CMP #### [facility] [address] [address] [address] Alicia Patel Pre-Certification Formon Pre-Certification Form [id number]#[id number]:127 Normal [facility] ECHOCARDIO M/2D COMPLETEon 0 10-26-2022 ECHOCARDIO M/2D COMPLETE Patient: VICTORINO SMYTH Exam Date: 10/26/2022 : 1940 Gender:M Ordering : IRIS CORONEL Admission #: [id number] Family : DR TRAY ALFARO . Order #: [id number] CLICK HERE TO VIEW EXAM ECHOCARDIOGRAM REPORT [...] [place] M.D. on 10/28/2022 at 13:02 Normal [facility] RAD - MISCon 10-25-2022 RAD - MISC [id number]#1.00CD:127 Normal [facility] XR KUB 1 VIEWon 10-22-2022 XR [...] by: TYLER MONSIVAIS Date: 2022-10-22 09:12 Normal [facility] RAD - Ultrasound Reporton RAD - Ultrasound Report [id number]#1.00CD:127 Normal [facility] US KIDNEYSon 10-18-2022 US KIDNEYS EXAMINATION: [...] by: TESS FORD Date: 2022-10-18 07:04 Normal [facility] IntraOperative Documentson 0 10-15-2022 IntraOperative Documents [id number]#[id number]:127 Normal [facility] 37on 10-14-2022 37 Increase amlodipine back to 10 mg daily Increase Isosorbide to 120 mg daily ( 2 tabs) daily for chest pain Goal b/p is 130/80 or less Call office for continued chest pain/burning, shortness of breath, or call 911 for any worsening symptoms. Normal [facility] BNPon 10-14-2022 Natriuretic peptide B (Bld) [Mass/Vol] 300.0 pg/mL Normal <=1,800.0 [facility] Comment on above: Performed By: #### T SH, LIPID, T4, FT3, CMP #### [facility] [address] [place] [address] Dr. Alicai Patel CBC AUTO DIFFon 10-14-2022 BASO # 0.0 103/ul Normal 0.0-0.1 [facility] Comment on above: Performed By: #### T SH, LIPID, T4, FT3, CMP #### [facility] [address] [address] [address] Alicia Patel Basophils/100 WBC (Bld) 0.6 % Normal 0.2-2.0 [facility] Comment on above: Performed By: #### T SH, LIPID, T4, FT3, CMP #### [facility] [address] [address] [address] Alicia Patel EO # 0.2 103/ul Normal 0.0-0.7 [facility] Comment on above: Performed By: #### T SH, LIPID, T4, FT3, CMP #### [facility] [address] [place] [address] Dr. Alicia Patel Eosinophils/100 WBC (Bld) 4.6 % Normal 0.9-7.0 [facility] Comment on above: Performed By: #### T SH, LIPID, T4, FT3, CMP #### [facility] [address] [place] [address] Dr. Alicia Patel Erythrocyte distribution width (RBC) [Ratio] 14.2 % Normal 11.0-15.0 [facility] Comment on above: Performed By: #### T SH, LIPID, T4, FT3, CMP #### [facility] [address] [place] [address] Dr. Alicia Patel Hematocrit (Bld) [Volume fraction] 36.1 % Critically low 42.0-54.0 [facility] Comment on above: Performed By: #### T SH, LIPID, T4, FT3, CMP #### [facility] [address] [place] [address] Dr. Alicia Patel Hemoglobin (Bld) [Mass/Vol] 11.8 g/dL Critically low 14.0-18.0 [facility] Comment on above: Performed By: #### T SH, LIPID, T4, FT3, CMP #### [facility] [address] [place] [address] Dr. Alicia Patel IG # 0.03 10e3/ul Normal 0.00-0.03 [facility] Comment on above: Performed By: #### T SH, LIPID, T4, FT3, CMP #### [facility] [address] [place] [address] Dr. Alicia Patel IG % 0.6 % Critically high 0.0-0.5 [facility] Comment on above: Performed By: #### T SH, LIPID, T4, FT3, CMP #### [facility] [address] [place] [address] Dr. Alicia Patel LYMPH # 1.1 103/ul Critically low 1.2-3.8 [facility] Comment on above: Performed By: #### T SH, LIPID, T4, FT3, CMP #### [facility] [address] [place] [address] Dr. Alicia Patel Lymphocytes/100 WBC (Bld) 22.6 % Normal 20.5-60.0 [facility] Comment on above: Performed By: #### T SH, LIPID, T4, FT3, CMP #### [facility] [address] [place] [address] Dr. Alicia Patel MANUAL DIFF REQ NO Normal [facility] Comment on above: Performed By: #### T SH, LIPID, T4, FT3, CMP #### [facility] [address] [place] [address] Dr. Alicia Patel MCH (RBC) [Entitic mass] 33.2 pg Normal 25.9-34.0 [facility] Comment on above: Performed By: #### T SH, LIPID, T4, FT3, CMP #### [facility] [address] [place] [address] Dr. Alicia Patel MCHC (RBC) [Mass/Vol] 32.7 g/dL Normal 29.9-35.2 [facility] Comment on above: Performed By: #### T SH, LIPID, T4, FT3, CMP #### [facility] [address] [place] [address] Dr. Alicia Patel MCV (RBC) [Entitic vol] 101.7 fL Critically high 80.0-94.0 [facility] Comment on above: Performed By: #### T SH, LIPID, T4, FT3, CMP #### [facility] [address] [place] [address] Dr. Alicia Patel MONO # 0.7 103/ul Normal 0.3-0.8 [facility] Comment on above: Performed By: #### T SH, LIPID, T4, FT3, CMP #### [facility] [address] [place] [address] Dr. Alicia Patel Monocytes/100 WBC (Bld) 13.8 % Critically high 1.7-12.0 [facility] Comment on above: Performed By: #### T SH, LIPID, T4, FT3, CMP #### [facility] [address] [place] [address] Dr. Alicia Patel NEUT # 2.9 103/ul Normal 1.4-6.5 [facility] Comment on above: Performed By: #### T SH, LIPID, T4, FT3, CMP #### [facility] [address] [place] [address] Dr. Alicia Patel Neutrophils/100 WBC (Bld) 57.8 % Normal 43.0-75.0 [facility] Comment on above: Performed By: #### T SH, LIPID, T4, FT3, CMP #### [facility] [address] [place] [address] Dr. Alicia Patel Platelet mean volume (Bld) [Entitic vol] 10.1 fL Normal 9.5-13.5 [facility] Comment on above: Performed By: #### T SH, LIPID, T4, FT3, CMP #### [facility] [address] [place] [address] Dr. Alicia Patel PLT 160 103/ul Normal 150-450 [facility] Comment on above: Performed By: #### T SH, LIPID, T4, FT3, CMP #### [facility] [address] [place] [address] Dr. Alicia Patel RBC 3.55 106/ul Critically low 4.70-6.10 [facility] Comment on above: Performed By: #### T SH, LIPID, T4, FT3, CMP #### [facility] [address] [place] [address] Dr. Alicia Patel WBC 5.0 103/ul Normal 4.0-11.0 [facility] Comment on above: Performed By: #### T SH, LIPID, T4, FT3, CMP #### [facility] [address] [place] [address] Dr. Alicia Patel Coding Summary.on 10-14-2022 Coding Summary. CD:[id number] Ww+PGh lYWQ+EE2OSNMmY11ntGOvkR8xZ 0NMTElOSywgQVBQTElOSyIgbmF yKL1ggLXyEWTh IC8+AE5wAVLdNxjglTQmh2H7kW T9N50hbg4pGHjvvKJ5LVXsMpXp cpdry2gumTi5TVncQqwmBnSd TCAmbA41RFT9sV10Eo50lTYfcD Xuq3strXo9WeNmTIIwVUF1eQld QNcuc1HxCICmA89dzDCot4J0 ULEwdPvavAVpOzUwhLT0oM3jKT hbfcnxv2hgwfeeLll1yc15rXSg b0C1jMY4U6XrocS2AMUxcHEu HfvuqHSSzK4jplahg7tuuzwmLl VhRUYmCId6DCy1XDMptEndKfNg IH89OZW9DQJgcmSwB1XiOQGr tZgcGxI9z3W8Ls2KS0CQAcjtR3 VNTUFSWTwvdGQ+SA29rb06W4Uz ExbsNjv7NLWqHJH1vJV7lT1p EQOvGLfak1J4zGM6D3CfvmMogb 0nt2urFOEnAYyyN77npVLab0E1 OKBriCE0QLAgnOilGwIrsD00 Oyc+QVMjrUbni5UtOjlea0gki9 xkgNx8WbtaDMVxauXerQivCIW9 x5OrSt9zFLQfeLF3rQR1rN3a XnWaVeJ2UPgyV426DgShdSLyDq elW89tZ6KscIY+WFWlDfz6FTZv hSlpGA0gL5FdKPWisqbvkPNg tEtkFD0iYKFatwxkACZobB7eKV MwA2h2IfSnVjG4LCasL9FlPIMl ejhiHu47fD8kRhDuTfM7VQcr Z5TaskG8SBWdxNTpQWbwMIE2R7 2hs0R1CWRgCFAjWJK6uBE4lU1f bGlnbjogbGVmdDsgdmVydGlj AFuyAObfI402KEZlpYuyMrEoMS luZyBEYXRlOiAgMDQvMjAvMjAy MzwvdGQ+ROEwOMC2cHvqPFZt gLCuRUwoJf1ypKgonSwvWM7jMS WxpczbJBQwaD9hSWRvsXDrmSwl PF5sSGHanbieq123CqLyOBC0 HQNcxVMnQ9OryY3fSdPwLQWrYC MlL6WocHApERjaA705SIsjDfA5 DTNcgsReS1ScCTHnnXkvQzI0 s7S3Pz9Fx3YykoiwE3NduZFeCs VdLyebHQi0G5RcJnmwwGO+PC90 UPFqWB40ZYp0PYY4vOhuYIff TXWbQ8VfeA2zLwTvVUNgSPOuXq c+PHRhYmxlIHdpZHRoPScxMDAl NbPyjKhjYU1nTv6jOVBxJCBy mCzrxOWfVtNqq0ynTHSnEVtbMD 3syJsaI3KtoVQ1ENMzg8m7Az71 M75rN2DbbDK+DFMzdVP1dKA6 sH7oCsUtViJ0HMvyJ809SyZpsO ScMszxt3vbe9msiRa0AmY9FRSu ojRqaEtpMNV5p2XwWy16T89d IHdpZHRoPSIxNSUiIHZhbGlnbj 8mbO0fCb5+OAMjuUH4pZQ0qN5u OwWiKkV5EJfsF565BrWlhKAe Dnjzo6jfw4qivWs1RuPqEZZomt IcjDunZZD0l5XlYs17O6MvdHqt s7FyUeq4ql01jPGwv8K5hQP4 J8DsTLKikssacPBfqJrsPM9pMZ KeeumrTVYphP5jWWVwN3c3FmDf JqG5TFkcH0ZgilS3YBWnlNTd PVZncSGVmX5fdchpn0orqhroIz CqBOVpUPb8HCh6IEYzcKkoPaGa RFE6OaJ7UKD0rKRxgO5ioNhg gsmhnC1dAzh+PMS7yQMmhNMGCR 1lOjwvdGQ+CJKfGNY5aLvvLFqc ORFbdF1wQZSdN2r7PnCrHfG4 OOkmI9LuumX1ZMVjiLEtRRMpdY HMcX1lvorth7xhffdvHlQaPIEq AKp4EJn4OYCxwBrhRaXzGRG6 XxL6GAI8dLWdrY4waGatkhvkkS 9wOyc+ZywhuPuuEVF4LWt2C8Nq Rkd9JWTnmKbrNR3vuMDpZOnk Hy4ttIavzSmjVY4fKWGqbyfvj3 82DjFpf4ctGFKcsXDlCJwtPWY3 D08hy4Z4JTDjDLBbJAP3cEJ4 qG2mtIlspsdkwOQnbMwmsgEprH jwETdgCHfhH235WXRtlGdfQrKc SQd5X6OaTgl9JMHxuCqgKS6c zWCjFFriCe8ycRzbtCzhXO6yHZ Egvsuza255QkGvh9toYHGzdMBm DNfpFRO1Y61xl2M7ILHoBMYz STS4eRR4iQ6jzWjqykfiiHPkeI rirsZnvLraRGtwOZhfI651SAHx aXpfFzObzZp8O8HgGtn2HGZw sLzqKJ8owVBaFSkkXa1etHvbbA iuOD4xBABhqbpuv349XsGek3ww AVLzbOUpEGcxFMI7I93mk0A8 AWBiYQEaRHE5gQY7hC6icSaini ogbGVmdDsgdmVydGljYWwtYWxp P614QLJomTppQpSavHrxzrKa ASenDLh8Q0GfArmxaWV+PC90YW OtXP52xFVjoDQgr1bwdFd8WpGm GICnPKC6nKguMMczx2UsFNEl J32tmLXwp2B5YYHnpBfceBYdLg MdnEF4rW6yQHeuayyrn7wnxdep Ukjic0lpei09eV83M63qYNok PNBqBJEqQLNiRXGcuQzfdu4bqC 9wIi8+OQWtdUB0vJZ8dK5vPXGn PgY2GGefY422GoOzbZJySsxq x2ssr2nbuBq6PvD9QWMcteKweJ irTEM1u2GyDt34U66vGTcmWOVt IPJkTHRbDLLoyZpovk9gwW5k Ii8+LPAyeNN9uQY7hG0vVoEaTj Z0KIpfR835YoDilBUhNvbvL85z S0NhcWW+HPTgIvr7TXVwbOog WL8faNYxRNsrGk8aDRK2DqWkOz FaVUpqN9KqCUZoslvqkmomdIQ1 BXQpRKJuoF24Cb0jqIbrAKQj aMGBhW7nnhhwi6vvugvnRrAaWU AaBBp2ITk8DNXojTtcAhOzAVU1 ItH2EMD4eCMkwH7atIzexupn uG4iD7BkENRexjznQe16lF7kOx EqZjI5HQssTzd+THEXSN9AEiiq CgSDGaVOEHAFWF32NQ52nWJs w2M2lQM8J0KzEWLkmvvjaaqqqL Q5UVGhMCWxyQ83dLGrTFfaXj2a o1S1t618ZKYeATNdjL38Jn1j xZsbNDVggBPItZ9eskkax2izvk gyMoIuXBNfXAm0AWf6EIEpoFfw HkRtLNJ9KqR0YUJ0jXOooJ5x mVygamalfO2zEvz+MDIvMDQvMT o6PowlnIN+CDEjYSW4tOfcVOvb THMqfV1sGLKuK4m7OnInZqG8 BCzwG1EwNQMcmjnmVf91gI9vXb ZlYbA6KMdgX3ZcsvW3AKXccZQy DZddHMA7Z88wa0V6NMIiCJOk AQM1dNB5wK9agSnbtdprzYIvgL raytYtrMlyLHkeMVoyM435KPPi yRkyOogoJWykADFeTT12DE54 aMGto1C0iYC4V5JsDFYqduntzb rejTI2GJSkKHBwiV87hLBrAPnk Jm1mg9T6b649SMZgPABulZ22 Dx1xiXdsBYIclHNFuG6grckfh5 dwozomUdFsORShETg1NLo6YRKm sXklYcSqGCE4NjE1CFN5iZRk kB7ctPwwmdgbqO7aYfn+TWFsZT wvdGQ+LIVcQXC4dQlvSBjnUBMp wF5kYAFlO7l2HfMxUfF4LFpd Q5LnVVRxejfdVx39mZ5gTbNeWy P0XJgbN1NsuqO7IKLwpKBjLSlq ZOZ5Y54te9H9JCBvIEDtUDL2 wAN6sX7jmGvsipphqTNheCdnhx XudBtkGClyOTzlA161MNGskOor JwMiJoEgMBHdyltsT8ViHNGE DYheD5HsU1KdzXngpJJ+PC90cj 74F7YpFqdtLui1CBWeMNE1nGQ1 rU6fPXErWYxrj5R9iNB0R6Je zdIgvx7lb7miOHBqMIikE13kiL Jil7D8BNTpjCS7AZWppQdoHxDn bF06Scg+POPysTwch2HhZqgc x0oge4uqpTq7SzYrVNZmmeFrrV iaGAU4u5YnKk07E77nGEeaKBUf UVXqKPFtTZGgcKghcs9yjM2n Ii8+YFUbyAQ1cUP5uS8uBrDbQp Q4YRinF451GjDeoTQlMsivc3my b2iiuVj2NsOoJCLexnFsqTnu CJR7a2WwTc14V3MmeWuow9JoLy b2hu54zJEkn7Y8cAQ2Q4LfRJKx nhwhnAAzlZmtBB6oXMSfqyps BKAcjK6gFQMiA0s6YeVxXjU2EG jcS2NyslG1PIFiuWXgXWZubRJJ eA8tvizgz0anljtqDcIlJZJf EKj7AZj4UOGitGcwMpRhOEA1Gq Y6TMM1cFHkfX9shTtjgospfW9s Oyc+GXw6n0zmbNYzWX5bhPI2 OO12UM36xXBpv2K9uOF6S5TjXF NteqriizlcnXV8OBMhFUNuqP70 Am1qjWprKj8zXKKuRXL9KNXz cCOrC8IrjX5cOwHkRSVbDGOmO7 MvpSOaSLhoO765QJogWeE7QTUh vsPvS2KtBCUacSuqUtS3y8S1 Ca5GHA68FB48PL87eLTdw0A3mP K4P4OfEJRpqbdbxjkbrRA4GLSr QWCfbK47Ir6lvThwFg1qNGDu DGY3EMLqnDQqX2NygL2gGxFeOC QaQQQbE7BhkNVbJBqjX020HOqj JoI3CNGvskVcO9NxAGNfgEqd IlL5d9Z5Tj9DPl71FQ15EI99pW Gib0T4hRJ6G0YoBISouccdscbd cXN4PKBaZKBsxB59Pr0nbTzv Xz5jIJJzCUU8YPNcsQDiT1XuuZ 4lDcVqLDWoWWHoF0YkzWVqPHjt R203GHuxIxK9TZLmslXkB4Bf KSHdrQcbQbS8m6P8Mf0MVWxvhi h4U7YrVvootNZ+SU95CVTlRG85 uAYxzBRnc0edpBz1PeJvQZJa ZID0gChb (more content not included)... Normal [facility] Office Visiton 10-14-2022 Follow-up visit [id number] Ruben Smyth 1940 M Date Provider Department Center 10/14/2022 IRIS BLACKMAN [facility] Family History Problem Relation Age of Onset No Known Problems Mother No Known Problems Father Family Status - Relation Status Age at Mother Father Level of Service:98271 AR OFFICE/OUTPATIENT ESTABLISHED MOD MDM 30-39 MIN Reason for Visit and Comments: Chest Pain [921854] Coronary Artery Disease [187] Hypertension [773222] Normal [facility] PROF CHEM 8 (BAS METB)on Anion gap [Moles/Vol] 13.9 mmol/L Normal [facility] Comment on above: Performed By: #### T SH, LIPID, T4, FT3, CMP #### [facility] [address] [place] [address] Dr. Alicia Patel Calcium [Mass/Vol] 8.3 mg/dL Critically low 8.5-10.1 [facility] Comment on above: Performed By: #### T SH, LIPID, T4, FT3, CMP #### [facility] [address] [address] [address] Alicia Patel Chloride [Moles/Vol] 108 mmol/L Critically high 98-107 [facility] Comment on above: Performed By: #### T SH, LIPID, T4, FT3, CMP #### [facility] [address] [address] [address] Alicia Patel CO2 [Moles/Vol] 23.5 mmol/L Normal 21.0-32.0 [facility] Comment on above: Performed By: #### T SH, LIPID, T4, FT3, CMP #### [facility] [address] [place] [address] Dr. Alicia Patel Creatinine [Mass/Vol] 2.41 mg/dL Critically high 0.70-1.30 [facility] Comment on above: Performed By: #### T SH, LIPID, T4, FT3, CMP #### [facility] [address] [address] [address] Alicia Patel EGFR-AF TAJIK 32 mL/min/1.73m2 Critically low >=60 [facility] Comment on above: Performed By: #### T SH, LIPID, T4, FT3, CMP #### [facility] [address] [place] [address] Dr. Alicia Patel EGFR-NON AF TAJIK 26 mL/min/1.73m2 Critically low >=60 [facility] Comment on above: Performed By: #### T SH, LIPID, T4, FT3, CMP #### [facility] [address] [place] [address] Dr. Alicia Patel Glucose [Mass/Vol] 74 mg/dL Normal 74-106 [facility] Comment on above: Performed By: #### T SH, LIPID, T4, FT3, CMP #### [facility] [address] [place] [address] Dr. Alicia Patel Potassium [Moles/Vol] 4.4 mmol/L Normal 3.5-5.1 [facility] Comment on above: Performed By: #### T SH, LIPID, T4, FT3, CMP #### [facility] [address] [place] [address] Dr. Alicia Patel Sodium [Moles/Vol] 141 mmol/L Normal 136-145 [facility] Comment on above: Performed By: #### T SH, LIPID, T4, FT3, CMP #### [facility] [address] [place] [address] Dr. Alicia Patel Urea nitrogen [Mass/Vol] 36.0 mg/dL Critically high 7.0-18.0 [facility] Comment on above: Performed By: #### T SH, LIPID, T4, FT3, CMP #### [facility] [address] [place] [address] Dr. Alicia Patel Urea nitrogen/Creatinine [Mass ratio] 14.9 mg/mg Normal [facility] Comment on above: Performed By: #### T SH, LIPID, T4, FT3, CMP #### [facility] [address] [place], [place] [address] Dr. Alicia Patel TROPONIN, HIGH SENSITIVITYon 10-14-2022 HSTROP 9.6 pg/mL Normal 4.0-76.1 [facility] Comment on above: Result Comment: CUT- OFF POINTS HAVE BEEN ESTABLISHED BASED ON THE FOURTH UNIVERSAL DEFINITIONS OF MYOCARDIAL INFARCTION. THE UPPER REFERENCE LIMIT (URL) OF TROPONIN, DEFINED THE 99TH PERCENTILE OF cTnI DISTRIBUTION IN A REFERENCE POPULATION, HAS BEEN CONFIRMED THE DECISION THRESHOLD FOR [place] DIAGNOSIS. Performed By: #### T SH, LIPID, T4, FT3, CMP #### [facility] [address] [place], [place] [address] Dr. Alicia Patel Main OR Intraoperative Recor don 10-13-2022 Main OR Intraoperative Record IntraOp Document Type FT Summary Primary Physician: Ni OLIVARES MD Finalized Date/Time: 10/13/22 15:17:44 Pt. Name: VICTORINO SMYTH/Sex: 1940 Male Med Rec #: [id number] Physician: Ni OLIVARES MD Financial #: [id number] Pt. Type: A Room/Bed: [place] [address] Admit/Disch: 10/07/22 09:01:16 - 10/07/22 17:40:00 Institution: [...] Role Performed Anesthesiologist of Surgeon - Primary Vocational Rehabilitation Specialist - Primary Record Time In 10/07/22 [...] Prep Dry n/a Time Out Toya OLIVEROS, MARSHALL Medina MD, En Merritt Terry T, Scott, [...] and tissue Entry 1 Skin Integrity Intact, [place], Warm, and Skin Abnormality No Dry Outcomes [...] (more content not included)... Normal [facility] Consent for Anesthesiaon Consent for Anesthesia [id number]#1.00CD:127 Normal [facility] Discharge Instructionson Discharge Instructions [id number]#1.00CD:127 Normal [facility] IntraOperative Documentson 0 10-08-2022 IntraOperative Documents [id number]#1.00CD:127 Normal [facility] IntraOperative Documents [id number]#1.00CD:127 Normal [facility] IntraOperative Documents [id number]#1.00CD:127 Normal [facility] Preoperative Documentson Preoperative Documents [id number]#1.00CD:127 Normal [facility] Preoperative Documents [id number]#1.00CD:127 Normal [facility] Preoperative Documents [id number]#1.00CD:127 Normal [facility] XR Abdomen 1 Viewon 10-09-19 23 [...] 0 DAP = 0 Normal [facility] CHEMISTRYOrdered By: Lab ROP User on 10-07-2022 Glucose [Mass/Vol] 101 mg/dL High 55 - 99 mg/dL [facility] POC Subsection Comment on above: Result Comment: Jackelin quach RN/ POC Device SN [id number] Invalid Interpretation Code FT POC Subsection POC User ID [id number] Invalid Interpretation Code [facility] POC Subsection POC Username BEE NORRIS Invalid Interpretation Code [facility] POC Subsection Capillary Glucose POCon 09-25 Glucose [Mass/Vol] 101 mg/dL High 55-99 [facility] Comment on above: Result Comment: Jackelin quach RN/ Performed By: #### 2 [id number] #### [facility] [address] [place] [address] Consent for Procedure/Surger yon 10-07-2022 Consent for Procedure/Surgery [id number]#1.00CD:127 Normal [facility] Consent for Treatmenton 09-25 Consent for Treatment [id number]#1.00CD:127 Normal [facility] H&P Updateon 10-07-2022 H&P Update [id number]#1.00CD:127 Normal [facility] Inpatient Patient Summaryon 10-07-2022 Inpatient Patient Summary [address] [address] [facility] Clinical Discharge Instructions PERSON INFORMATION Name: VICTORINO SMYTH PHYSICIANS Admitting Physician: Ni OLIVARES MD Attending Physician: Ni OLIVARES MD PCP: Erum OLIVEROS, Tray Discharge Diagnosis: Comment: PATIENT EDUCATION INFORMATION Instructions: Post Op Patient Instructions - FT (CUSTOM); Lithotripsy, Care After Medication Leaflets: Follow up: With: Address: When: Ni OLIVARES [address] [place] [address], [address], [address] [address] Business (1) Comments: We were [...] Start [place] [place] [facility] Office Visit [facility] EU Charito 10/29/2022 8:45 AM 10/29/2022 9:00 AM Confirmed MEDICATION LIST New Medications [id number], [address], [place] [id number], [phone] acetaminophen-hydrocodone (acetaminophen-hydrocodone 325 mg-5 mg oral tablet) [...] Mouth every day. Comment: Normal [facility] Main OR PACU I Recordon 09-25 Main OR PACU I Record PACU Phase I Docum ent Type FT Summary Primary Physician: Ni OLIVARES MD Finalized Date/Time: 10/07/22 16:21:28 Pt. Name: HAJAVICTORINO/Sex: 1940 Male Med Rec #: [id number] Physician: Ni OLIVARES MD Financial #: [id number] Pt. Type: A Room/Bed: [facility]/ Admit/Disch: 10/07/22 09:01:16 - Institution: Case Times [...] YOON RN 10/07/22 16:21 Normal [facility] Main OR PACU II Recordon Main OR PACU II Record PACU Phase II Doc ument Type FT Summary Primary Physician: Ni OLIVARES MD Finalized Date/Time: 10/07/22 18:36:17 Pt. Name: VICTORINO SMYTH/Sex: 1940 Male Med Rec #: [id number] Physician: Ni OLIVARES MD Financial #: [id number] Pt. Type: A Room/Bed: AS06/ Admit/Disch: 10/07/22 [...] Mcbride RN 10/07/22 18:36 Normal [facility] Main OR Preoperative Recordo n 10-07-2022 Main OR Preoperative Record PreOp Document Type FT Summary Primary Physician: Ni OLIVARES MD Finalized Date/Time: 10/07/22 15:12:57 Pt. Name: VICTORINO SMYTH/Sex: 1940 Male Med Rec #: [id number] Physician: Ni OLIVARES MD Financial #: [id number] Pt. 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 Jose Alfaro to arrange for possible further follow-up regarding this. She was in agreement with the plan.. Estimated Blood Loss: 0 ml. Complications: None. Anesthesia type: General. Normal [facility] Comment on above: Result Comment: Elec tronically Signed By: Ni OLIVARES MD\.br\Date and Time Signed: 10/07/22 15:51 EDT Outpatient Surgery Discharge Instructionon 10-07-2022 Outpatient Surgery Discharge Instruction [address] [address] Patient Discharge Instructions PERSON INFORMATION [...] THE NEAREST EMERGENCY ROOM OR CALL 911 HJAA Gibbons BERNARD M, have received the attached patient education materials/instructions and have verbalized understanding: May we do a follow up call? Yes No I was present when discharge instructions were given ____ Patient Signature _ Date Clinican/Nurse Signature Date Follow up: With: Address: When: Ni OLIVARES [address] [place], [place] [address], [address], [place] [phone] Business (1) Comments: We were able to [...] any other anesthesia procedures. Type Location Start [facility] URO Office Visit [facility] EU [place] 10/29/2022 8:45 AM 10/29/2022 9:00 AM Confirmed [...] to serve you. Thank you for choosing [facility] HERE ARE THE MEDICATION CHANGES THAT OCCURRED DURING YOUR HOSPITAL STAY New Medications [id number], [address], [place] [id number], [phone] acetaminophen-hydrocodone (acetaminophen-hydrocodone 325 mg-5 mg oral tablet) [...] Instructions: Lithotripsy, Care (more content not included)... [facility] Patient Education - Texton 0 [...] these instructions at home: Medicines ? Take ejng-lde-ielthyn and prescription medicines only as told by [...] (more content not included)... Normal [facility] Progress Note-Physicianon Progress Note-Physician Patient: VICTORINO SMYTH Age: 82 years Sex: Male : 1940 Associated Diagnoses: None Author: Toya OLIVEROS, Timothy Motta Postoperative Information Postoperative disposition: Postoperative disposition: To PACU. Optimetrix number: Optimetrix number [id number]. Anesthetic utilized: General. Physical Examination Vital Signs [...] when meets criteria ( To home ). [facility] Comment on above: Result Comment: [...] Problems Acute kidney failure / SNOMED CT 40421990 / Confirmed Anticoagulated / SNOMED CT 466107053 / Confirmed BPH associated with nocturia / SNOMED CT 7071205971 / Confirmed BPH with urinary obstruction / SNOMED CT 9735231924 / Confirmed Chronic obstructive pulmonary disease (COPD) / SNOMED CT 63237381 / Confirmed Coronary artery disease / SNOMED CT 99289994 / Confirmed DM (diabetes mellitus), type 2 / SNOMED CT 171286604 / Confirmed Elevated PSA / SNOMED CT 9240828232 / Confirmed Erectile dysfunction / SNOMED CT 0424008553 / Confirmed Flank pain / SNOMED CT 798944226 / Confirmed H/O: hypothyroidism / SNOMED CT 996279741 / Confirmed Hydronephrosis / SNOMED CT 63455928 / Confirmed Hydronephrosis with ureteral calculus / SNOMED CT 5975450267 / Confirmed Hyperlipidemia / SNOMED CT 59242798 / Confirmed Hyperplastic colon polyp / SNOMED CT 3997068369 / Confirmed Hypertension / SNOMED CT 9171220367 / Confirmed Kidney stone / SNOMED CT 373118467 / Confirmed Myocardial infarct / SNOMED CT 46501832 / Confirmed Occult blood in stools / SNOMED CT 14058858 / Confirmed Postprandial diarrhea / SNOMED CT 04248479 / Confirmed Prostate cancer / SNOMED CT 0098891295 / Confirmed Rheumatoid arthritis / SNOMED CT 540869808 / Confirmed Ureteral stone / SNOMED CT 42136657 / Confirmed Urinary retention / SNOMED CT 915202633 / Confirmed, Active Problems (24) Acute kidney [...] (more content not included)... Normal [facility] Comment on above: Result Comment: Elec tronically Signed By: Toya OLIVEROS, Timothy Villanueva.br\Date and Time Signed: 10/07/22 16:52 EDT Coding Summary.on 09-22-2022 Coding Summary. CD:[id number] Ww+PGh lYWQ+MH1CGWOkG90pjLWfoI9sI 0NMTElOSywgQVBQTElOSyIgbmF iJD3tpWZsEFTg IC8+DD0jNHSfGvwkuEEur5L1kU L4X25xxh6aKBzhuXU7QBOhWxRk fxbgo6czbXk3APkpMbwiQlMj WPHdiX26XHN1qB72Px93sLDqqI Msy3lryPc8DlEmMANqENW5qGlo TNgxs8AmQJWkD65qlEHse7Z9 HSMikBotbFKyJfJylYM4bU4wUT teefgad8ijpvoaUto3mu19nZWc v5V0fGU0D4JakuG1EGIigGSm WhzxxTCWiN9wxnvat5uwvjrhJb AoSOUcQZu0AMq4TEQjoTifSbZd YS39GIN2PUUoduZvO0NuXFFa hSwaPzV2i7F8Gi8RQ4LUAyehB5 VNTUFSWTwvdGQ+EH45gr27L6Tp QjhmPof8JHLbPIV7bXX2jT9v QYExWMlqk2A6uAU6C8PnivTsgd 0kq8lfVEXkTFfuN94utGDju5F7 AJBpdBB8FUMayYujYbUyiJ11 Oyc+CBUsaMrqm2XsKeril2fos4 mlxNj9RkknVNUvheCseEjbBRA4 t5YaJr2zGZQauAS9kOZ4mK2j EuTzDiZ9XYzgX438EtLsrEOpGj khS03pI8YjbCC+ZRWxFtc1GBFb uWicIU7wP2TuLYOfemkjoOQx pDfiQM8rMJAxmdwaFYJnfX1nZP HnG8f4QyEkPiN8YXjnB7IuGODk ilorXr79wR3bRgCdCdL0FVgr V8VfvfW5LIGfdXIzWVlhSMW9U4 9fh1S8OLOdMXZsCMV7fCP0gT8r bGlnbjogbGVmdDsgdmVydGlj XNeoCWflD094CQNtyZzmXdFoQJ luZyBEYXRlOiAgMDMvMjkvMjAy MzwvdGQ+FQNcVTP3jBimZKLs lUHjWZohMj6tpOxzsFkoSC4uES JrczhfYSGaaL4tBJCxlFRscWyz WD4lCZKbnmosz477XmNqXAI2 FIVrfFMpQ3CllS2nBzSsEFUhUQ DuY8TpyKRqOMhmY478KJlpGjB7 ZDMfltBjJ3XdZVTtbVrbQyZ1 v5E7Oo2Qq1DhkzsvI6HnbTPoDz AoCreiWIw1Q2ZxUceveTX+PC90 VONyCC37KMf8ZWQ6wWjyKOjg LSHlT6KrtQ8pFdQrENPhRQHnKd c+PHRhYmxlIHdpZHRoPScxMDAl UuQqmTzkBU2aLy5iEKUzEFLw rQldlBMoIcLpf1pwEQRsFFruTQ 8lwLobB3BtuLY7DEBdm0c4Ag82 Z87jO8RscGJ+YALyqSI3uKF9 dS7sVaDaNtQ1RUmxX091MoAkiV MfRzcto7chm0dntGh1ZmX4RSFf qbNzyUceQDW6c2ZkYf96M83v IHdpZHRoPSIxNSUiIHZhbGlnbj 2ziH6nTr9+GKGteGL7jQB5fE9c JuSgCiO7NBqlJ475MpUrcIGe Jzkpz1rju5brgBn2HyTeRXRaul DvqDhaZSR1p0McZc97B0IgmPha a3PfZdj5jk11tXLbe8D7uZG3 H8QmGRFncghkxQEkzQlgBO0kRE ByalfpLQIrbQ1lGHMdO6p6BhDn OsV7TJacO3VdgdU6HRAxoBRo KWGtpEPBcO8fxcamw0wnxmoaAg HpGTCpBDy7ZIz5UDXdxVgeXyKh TSI2QvR8CLJ3vEJiaD1ksFxd tjmgsO3jLbu+QSX8xMLifMVDWK 1lOjwvdGQ+NFWdHIE0mZtwFCvf HTDimL0tUHQpC4p9WwAaRzE4 BKblM7KmouI5JVBgzUCtSWNhdI WOwN6mrvoco9bhsvaiSmFaNGKt KFm6TDl0UHSmsNwxWmKuDZZ6 SyD1BEV4eNQmpQ0yxOndvobaoW 9wOyc+VfghdCuzDYZ0FHd2D6Zx Kaf6MAIrmJbjZT2qaRPdFIsh Bw8zrEzfoJvnFX3iHGKrhddvo8 28OrMqz6teVYBlbTXcDMigYLX1 G07um7N7MWOrJYNjYAD4uGA0 dC0guFswkjvigUCkpIuzowLxqG fpBFuxWKtmJ988CXWzcMfcVcGs WNh3T2EzGxc2ILEwnTohGE5p nZYtMTefQj4krHaxaRtcPK6kXV Kcdtmow594OvJyn4xwROKdoHTc TLziQOP3B23pm1F5MKFiDDMa DNR2dSM6dC3elXbsqoshqULphU fzalGocLetXEslROutW543NTHe vYcpKcPfhJs1H2LfAar1GFZu iBdiIS1bqVIzGNwjYa1sxKjtcK jfXQ8pNPLsdrnwr613XfRfd8ni BUKixLJxCCqeDMS5R89ve2E5 FWLsITRpIYT9tNN1vG2trGrkzb ogbGVmdDsgdmVydGljYWwtYWxp O704TWNllDvuIrIbbKvqdrZt VPwxFYb6S4NjKkbxnYX+PC90YW HjFA33gRVonJRrr3iqoAg1QhYx ZCVeSYE8fGywELrch9PjMWBm M05nvHOmx4L6FFIpgPsdhKWlKv HhsBR9oN5jPIwopsvsm6pixigv Vegaj8kili85mC97G15xTEjp BTUvIALqEGGzQLWssNawen3oqA 9wIi8+ICNsuVR1eBY4bY8uNDUx DmL4PCpeH839IdVrkBQtKmvz j0eph7yiyKz0HuD4YVVnphLnwM gsUHV9z4VxOh00H38jZNmyPIWa LADuRQZoUCMfiFewmt5esI9f Ii8+BLBfyYE1sKJ7tJ1xJbWhEf Q1USwlK422YuGtpNYkVrwsT28k X8LadNH+SXWnIen1AIFqlUev AH6rpMOsYKvrWf0pOER4TpWzZt EnIUcrR2RnCCQlwjovwbnlwDN4 IPMgMIKqzT72Hz5goSiiODRz mOCBqF3lrtodv8piauroOvIyNC QwBAk3YNh0UTOonRgzAhVmOPY0 UeS9MCU6kUPjvD9ggTiwvwkm tA3eX1EoTPEqfnucNa62qA2nTb WcMhJ5TTjvRak+BLBVYZ5ACjsx ZqWUTqGPNBYOMI42AI38oJQk l0E3vJX0E4SbWWQuztazlmaqjM U9UIKfQJIfqZ23yIHtPVmgLt6i g0I5q517GBVwZWIkhD75Pn5r aFhjMHWplWGOzL8wdvdml0yqhe yvKbVuQTAqAWl9UBg0NYYvdSmh FiRzKKO3WbR6FTG8sRGflA6r iOrphvunaY5iLth+MDIvMDQvMT x4SzaxxRZ+RQAyNEQ7vRixDSrc ZEXmoO0nFHSnF6x4SiAdGwC3 VBhdF0EwCBPhrzqmPo02kF9uYs NfCiZ7KQsqU9ZjnsL4NTWpqXAj HSasUUV5C17fu0P2CVCxGCTq XOG3lTX0xT0xwSfcjfrjnQToqJ tsjjUjxHkfKQxcRMafX315EUWh uTjeGjwxCHtjQAGlXT80GX54 aLHin6W2wKH3S6TkKUVnfvsypq ilaUZ5CLIiDTAdrL03eFOmGBxa Xg3aj4Q3x089EPLcBIYryW95 Er5trSebYPHsrHTEwP0xduuwd9 qequrkFfDvTEUbSZq3JXg1ZBBl cDimGxSxZRL2NjD1DGY1fQPg aP0yePbxepgstX1uQxg+TWFsZT wvdGQ+GZAkNWH8pZbyITlwUWNq wL7wZDStN7h1YbBbMcE5VNut T3AdXKIqoaadRi96rZ6vJiZzIf T3HAneG5YkuoN0FOQllJUgHHgg PFK4U08hl5G2HVDoQHDvNTX2 eYO3hG3deOvhiobzaFAjnFkilm QpoTfjKTasSPgpR638ONYakEhh Py63qWLwaJobpgD8V3LeMdda dHI+LG10WRIrGZ61iIAxwGKxn4 jtoEa3LfQwKWRoOEN6iWvxZSvf v2GaPTPdQ33orIAhk1E7GSLk vGqvzKIqUdWyeOA7aL3aUQqqhb wmw6wzrixcZnnnk0xfal10yN92 Q49xONxzTXSnWEYuVZXjHJNl rJkxmd8mjH6fTt9+XQZzfDQ0yU V3uG9yEtExUnZ4QQriQ657KjOd mTBsWosfu8osm6skfVo1XxEd HAYcpzOulJlwHTJ4o5YaGh38O3 9sIHdpZHRoPSIyMCUiIHZhbGln pf5pzC3eVn0+DL9pa9wxlb60 fP02wFH+HMXoDOT3wRqyFKuuKW IcjJ6yDYfeNyE2SIYxVpHdnJ52 mLQkDAvrMd0jkOpbtYxxAO3p QAVkxrlun993FjOmu4yrFVBgyJ IqYWyeDIS5I16ep7R0BSZyPYLq PHV7zLV2tA9hxMvkykxcmFBv pEvceuYegNaaOPznTZeiB221TC NftMacCoFolRUlC4lehvAPIQ1k OjwvdGQ+UQQmSJT8qXqyLFcf FAZaiV9tAUWhP3h1WqEsZpK2SF kbZ2IsqqQ2JBTaoWPaVMFztOFD rM5slqfjh3glamllFaKtCWRz GSj9CSx7WZRteGadBlTyDKG3My A3WXC6hONfgY2swZizmgzjeF2t Oyc+RklOOjwvdGQ+PHRkIHN0 lIigHKtnOAQvlN6xIJFrC8e2Re GeIqG8CTifV4IgusB5UQMblSWo LFJllZYEgY7kpqyyp7vfctvl OpEjPVGqFZf3OYd0MCThyPtxNn QhDVX3HfM0RXJ9iXZoqW8weVqh bwvyhQ4uPhi+TVJOOjwvdGQ+ HBXeTWH8uCzoOMrzCQMseI7zQK XuO3b6XxTzQuE6NMedV8XnskJ5 LNEecTOqZWYucJTZgX2bapyr c1biepwzTfMzKZJtXKh4QYz9EL BkeRreDhNeUNG8PeH9NYW4fIAz zM3cuSqucdeytQ0wXmr+UGF5 ZPU4AQ25VS17Q1QqZvgftPFjiC U+PHRhYmxlIHdpZHRoPScxMDAl [id number] (more content not included)... Normal [facility] Consultation Noteon 09-21-19 Consultation Note [id number]:127 Normal [facility] Lab Reportson 09-20-2022 Lab Reports [id number]#1.00CD:127 Normal [facility] RAD - Ultrasound Reporton RAD - Ultrasound Report [id number]#1.00CD:127 Normal [facility] Outside Recordson 09-16-2022 Outside Records [id number]#[id number]:127 Normal [facility] Auto Diffon 09-14-2022 Basophils/100 WBC (Bld) 0.5 % Normal 0.0-2.0 [facility] Comment on above: Order Comment: Order Added by Discern Expert. Performed By: #### 2 890760, 93687489, 5177472, 58863690, 9672184 #### [facility] [address] [place] [address] Basophils/Leukocytes Auto (Bld) [Pure # fraction] 0.0 E9/L Normal 0.0-0.2 [facility] Comment on above: Order Comment: Order Added by Discern Expert. Performed By: #### 2 881945, 68475911, 4640456, 84380075, 8852957 #### [facility] [address] [place] [address] Eosinophils/100 WBC (Bld) 3.2 % Normal 0.0-8.0 [facility] Comment on above: Order Comment: Order Added by Discern Expert. Performed By: #### 2 627067, 49125022, 6394136, 74110563, 9896140 #### [facility] [address] [place] [address] Eosinophils/Leukocytes Auto (Bld) [Pure # fraction] 0.2 E9/L Normal 0.0-0.5 [facility] Comment on above: Order Comment: Order Added by Discern Expert. Performed By: #### 2 110680, 21858323, 8204746, 32225165, 0543986 #### [facility] [address] [place] [address] Lymphocytes/100 WBC (Bld) 17.6 % Normal 14.0-50.0 [facility] Comment on above: Order Comment: Order Added by Discern Expert. Performed By: #### 2 831465, 05332892, 8250976, 42005171, 2414693 #### [facility] [address] [place] [address] Lymphocytes/Leukocytes Auto (Bld) [Pure # fraction] 0.9 E9/L Low 1.0-4.0 [facility] Comment on above: Order Comment: Order Added by Discern Expert. Performed By: #### 2 642814, 01346823, 6243233, 47703780, 9435782 #### [facility] [address] [place] [address] Monocytes/100 WBC (Bld) 10.2 % Normal 4.0-14.0 [facility] Comment on above: Order Comment: Order Added by Discern Expert. Performed By: #### 2 222813, 51966725, 2396943, 56707519, 8461550 #### [facility] [address] [place] [address] Monocytes/Leukocytes Auto (Bld) [Pure # fraction] 0.5 E9/L Normal 0.2-1.0 [facility] Comment on above: Order Comment: Order Added by Discern Expert. Performed By: #### 2 263186, 43368684, 0801049, 72904078, 6711154 #### [facility] [address] [place] [address] Neutrophils/100 WBC (Bld) 68.5 % Normal 36.0-75.0 [facility] Comment on above: Order Comment: Order Added by Discern Expert. Performed By: #### 2 445358, 16261467, 4484385, 73340858, 1968655 #### [facility] [address] [place] [address] Neutrophils/Leukocytes Auto (Bld) [Pure # fraction] 3.6 E9/L Normal 2.0-7.5 [facility] Comment on above: Order Comment: Order Added by Discern Expert. Performed By: #### 2 960601, 20270228, 1605729, 30756245, 4835543 #### [facility] [address] [place] [address] BMPon 09-14-2022 Anion gap [Moles/Vol] 10 mmol/L Normal 6-16 [facility] Comment on above: Performed By: #### 2 088429, 48613690, 0524158, 81641028, 6082306 #### [facility] [address] [place] [address] Calcium [Mass/Vol] 8.6 mg/dL Low 8.9-11.1 [facility] Comment on above: Performed By: #### 2 006589, 36211161, 7302233, 32165552, 1475982 #### [facility] [address] [place] [address] Chloride [Moles/Vol] 108 mmol/L Normal 101-111 [facility] Comment on above: Performed By: #### 2 574384, 46345128, 8792272, 52532040, 9622163 #### [facility] [address] [place] [address] CO2 [Moles/Vol] 23 mmol/L Normal 21-31 [facility] Comment on above: Performed By: #### 2 258035, 42652109, 3459256, 66565865, 9088045 #### [facility] [address] [place] [address] Creatinine [Mass/Vol] 2.1 mg/dL High 0.5-1.3 [facility] Comment on above: Performed By: #### 2 512132, 69325717, 1242022, 51550718, 1636895 #### [facility] [address] [place] [address] Glucose [Mass/Vol] 89 mg/dL Normal 55-199 [facility] Comment on above: Result Comment: If t his glucose result represents a fasting glucose, interpretation should refer to the following reference range: 55-99 mg/dL Performed By: #### 2 681405, 51242746, 8100508, 78038063, 9553164 #### [facility] [address] [place] [address] Potassium [Moles/Vol] 4.1 mmol/L Normal 3.5-5.3 [facility] Comment on above: Performed By: #### 2 127986, 94812918, 3550712, 11101333, 8249343 #### [facility] [address] [place] [address] Sodium [Moles/Vol] 137 mmol/L Normal 135-145 [facility] Comment on above: Performed By: #### 2 737634, 42340313, 9187680, 64722341, 1224522 #### [facility] [address] [place] [address] Urea nitrogen [Mass/Vol] 26 mg/dL High 5-21 [facility] Comment on above: Performed By: #### 2 070392, 37521481, 1093088, 79919439, 5779842 #### [facility] [address] [place] [id number] Urea nitrogen/Creatinine [Mass ratio] 12 No Units Normal 10-20 [facility] Comment on above: Performed By: #### 2 768133, 95519057, 6110213, 40074813, 4457882 #### [facility] [address] [address] CBC w/ Auto Diffon 3 Erythrocyte distribution width (RBC) [Ratio] 14.0 % Normal 10.9-14.2 [facility] Comment on above: Performed By: #### 2 107454, 74288121, 2179403, 32950482, 7858619 #### [facility] [address] [place], [place] [address] Hematocrit (Bld) [Volume fraction] 31.6 % Low 37.7-49.0 [facility] Comment on above: Performed By: #### 2 387197, 00732136, 2276886, 89227644, 2489314 #### [facility] [address] [address] Hemoglobin (Bld) [Mass/Vol] 10.9 g/dL Low 13.5-17.5 [facility] Comment on above: Performed By: #### 2 469714, 91193608, 3887221, 91285013, 0491764 #### [facility] [address] [place] [address] MCH (RBC) [Entitic mass] 33.0 pg Normal 27.0-34.0 [facility] Comment on above: Performed By: #### 2 853490, 92758675, 5207320, 04168834, 9792189 #### [facility] [address] [place] [address] MCHC (RBC) [Mass/Vol] 34.5 g/dL Normal 31.4-36.0 [facility] Comment on above: Performed By: #### 2 794402, 86331491, 3831298, 82673758, 8702798 #### [facility] [address] [place] [address] MCV (RBC) [Entitic vol] 95.8 fL Normal 80.0-100.0 [facility] Comment on above: Performed By: #### 2 228540, 13344050, 5366614, 49290692, 6923701 #### [facility] [address] [place] [address] Platelet mean volume (Bld) [Entitic vol] 8.9 fL Normal 6.4-10.8 [facility] Comment on above: Performed By: #### 2 388906, 34226818, 8275662, 59030169, 9755226 #### [facility] [address] [place] [address] Platelets (Bld) [#/Vol] 151.0 E9/L Normal 150.0-500. 0 [facility] Comment on above: Performed By: #### 2 060220, 71889790, 4406617, 39815386, 1218382 #### [facility] [address] [place] [address] RBC (Bld) [#/Vol] 3.3 E12/L Low 4.3-5.9 [facility] Comment on above: Performed By: #### 2 764401, 95429841, 6828244, 35341158, 4091896 #### [facility] [address] [place] [address] WBC corrected for nucl RBC Auto (Bld) [#/Vol] 5.3 E9/L Normal 4.0-11.0 [facility] Comment on above: Performed By: #### 2 231703, 50913395, 7141790, 66217969, 1625334 #### [facility] [address] [place] [address]83 Consent for Treatmenton 08-26 Consent for Treatment [id number]:127 Normal [facility] PT & PTTon 09-14-2022 aPTT Coag (PPP) [Time] 29.7 second(s) Normal 25.1-36.5 [facility] Comment on above: Result Comment: Para [...] same coagulation reagent and instrumentation as [facility]. Currently there are no coagulation studies available worldwide for children to 14 days, and no normal ranges. Heparin therapeutic range (represented by Anti-Factor Xa activity of 0.2 - 0.4 U/mL) corresponds to PTT of 56.6 - 109.0 sec. Performed By: #### 2 857362, 08085566, 9212193, 49301535, 9678425 #### [facility] [address] [place] [address] INR Coag (PPP) [Relative time] 1.0 {INR} Invalid Interpretation Code [facility] Comment on above: Result Comment: INR results are specifically intended to assess patients stabilized on long-term Anticoagulation therapy suggested INR?s ?Less Intensive Anticoagulation? 2.0 ? 3.0 Conventional Range 3.0 ? 4.5 Performed By: #### 2 352057, 23670889, 3042038, 00071890, 8599284 #### [facility] [address] [place] [address] PT Coag (PPP) [Time] 11.7 second(s) Normal 9.4-12.5 [facility] Comment on above: Result Comment: 15 [...] same coagulation reagent and instrumentation as [facility]. Currently there are no coagulation studies available worldwide for children to 14 days, and no normal ranges. Performed By: #### 2 156550, 35583044, 5577820, 33015018, 3505031 #### [facility] [address] [place] [address] PTH INTACTon 09-14-2022 PTH, Intact 51 pg/mL Normal 15-65 [facility] Comment on above: Performed By: #### T SH, LIPID, T4, FT3, CMP #### [facility] [address] [place], [place] [address] Dr. Alicia Patel UA With Cult Reflexon 2022 Bacteria LM Ql (Urine sed) TRACE Normal Trace [facility] Comment on above: Performed By: #### 2 106131, 46495524, 6021220, 93741135, 0231467 #### [facility] [address] [place] [address] Bilirubin Ql (U) Negative Normal Negative [facility] Comment on above: Performed By: #### 2 041433, 74907512, 3635255, 58306991, 5435255 #### [facility] [address] [place] [address] Clarity (U) CLOUDY Abnormal Clear [facility] Comment on above: Performed By: #### 2 547999, 27195167, 9738695, 59578718, 2374648 #### [facility] [address] [place] [address] Color (U) YELLOW Normal Yellow [facility] Comment on above: Performed By: #### 2 161968, 19243493, 5696262, 60985132, 3368366 #### [facility] [address] [place] [address] Epithelial cells.squamous LM.HPF (Urine sed) [#/Area] 0-2 Normal 0-2 [facility] Comment on above: Performed By: #### 2 969895, 04547368, 7187526, 13373183, 0651181 #### [facility] [address] [place] [id number] Glucose Test strip (U) [Mass/Vol] Negative Normal Negative [facility] Comment on above: Performed By: #### 2 825474, 75552103, 3113918, 63932587, 9684869 #### [facility] [address] [place] [address] Hemoglobin Ql (U) 3+ Abnormal Negative [facility] Comment on above: Performed By: #### 2 723972, 55988715, 0501796, 42855479, 3724495 #### [facility] [address] [place] [address] Ketones (U) [Mass/Vol] Negative Normal Negative [facility] Comment on above: Performed By: #### 2 359105, 74957653, 0671312, 40153490, 9478738 #### [facility] [address] [place] [address] [place].plasma/[place] .RBC (Bld) [Mass ratio] >30 Abnormal 0-3 [facility] Comment on above: Performed By: #### 2 065803, 02276215, 9381325, 67092159, 9380875 #### [facility] [address] [place] [address] Mucus Ql (Urine sed) TRACE Normal [facility] Comment on above: Performed By: #### 2 820388, 32605805, 3768080, 42592573, 6948814 #### [facility] [address] [place] [address] Nitrite Ql (U) Negative Normal Negative [facility] Comment on above: Performed By: #### 2 407598, 16717998, 8862260, 89322768, 0072195 #### [facility] [address] [place] [address] pH (U) 6.0 [pH] Invalid Interpretation Code 5.0-9.0 [facility] Comment on above: Performed By: #### 2 407407, 01711210, 6222887, 09054622, 1121856 #### [facility] [address] [place] [address] Protein (U) [Mass/Vol] 2+ Abnormal Negative [facility] Comment on above: Performed By: #### 2 591882, 88554739, 5591268, 52692682, 7918867 #### [facility] [address] [place] [address] Specific gravity (U) [Rel density] 1.025 Invalid Interpretation Code 1.005-1.03 0 [facility] Comment on above: Performed By: #### 2 354632, 93689817, 2187454, 65685356, 6466300 #### [facility] [address] [place] [address] Type of Urine collection method Clean Catch Normal [facility] Comment on above: Performed By: #### 2 244839, 65685243, 2913898, 50749746, 7307850 #### [facility] [address] [place] [address] Urobilinogen Qn (U) 0.2 {Wil'U}/dL Normal 0.0-1.0 [facility] Comment on above: Performed By: #### 2 435773, 61272562, 0994086, 17342474, 3887153 #### [facility] [address] [place] [address]96 WBC Auto Ql (U) TRACE Abnormal Negative [facility] Comment on above: Performed By: #### 2 934120, 23217092, 3850001, 79576360, 5158920 #### [facility] [address] [place] [address] WBC casts LM.LPF (Urine sed) [#/Area] 0-3 Normal [facility] Comment on above: Performed By: #### 2 813227, 66072318, 4456064, 29445799, 9788846 #### [facility] [address] [place] [address] WBC LM.HPF (Urine sed) [#/Area] 0-5 Normal 0-5 [facility] Comment on above: Performed By: #### 2 494975, 74814308, 1844638, 81029001, 2635847 #### [facility] [address] [place] [address] XR Chest 2 Viewson 3 XR Chest [...] na DAP = na Normal [facility] eGFRon 09-14-2022 GFR/1.73 sq M.predicted among blacks MDRD (S/P/Bld) [Vol rate/Area] 37 mL/min/1.73 m2 Low >=59 [facility] Comment on above: Order Comment: Order added by Discern Expert. Result Comment: eGFR is race adjusted. AA=. Performed By: #### 2 446977, 88226727, 4725733, 61667664, 6883354 #### [facility] [address] [place] [address] GFR/1.73 sq M.predicted among non-blacks MDRD (S/P/Bld) [Vol rate/Area] 31 mL/min/1.73 m2 Low >=59 [facility] Comment on above: Order Comment: Order added by Discern Expert. Result Comment: Supervisor Refining christa kidney disease could be indicated at eGFR's of less than 60 mL/min/1.73m2. Kidney failure is indicated at less than 15 mL/min/1.73m2. Performed By: #### 2 817386, 49001166, 5677145, 90879720, 4469301 #### [facility] [address] [place] [address] HEMOGRAM AND PLATELon 2022 Hematocrit (Bld) [Volume fraction] 32.9 % Critically low 42.0-54.0 [facility] Comment on above: Performed By: #### T SH, LIPID, T4, FT3, CMP #### [facility] [address] [place] [address] Dr. Alicia Patel Hemoglobin (Bld) [Mass/Vol] 10.9 g/dL Critically low 14.0-18.0 [facility] Comment on above: Performed By: #### T SH, LIPID, T4, FT3, CMP #### [facility] [address] [place] [address] Dr. Alicia Patel MCH (RBC) [Entitic mass] 32.6 pg Normal 25.9-34.0 [facility] Comment on above: Performed By: #### T SH, LIPID, T4, FT3, CMP #### [facility] [address] [place] [address] Dr. Alicia Patel MCHC (RBC) [Mass/Vol] 33.1 g/dL Normal 29.9-35.2 [facility] Comment on above: Performed By: #### T SH, LIPID, T4, FT3, CMP #### [facility] [address] [place] [address] Dr. Alicia Patel MCV (RBC) [Entitic vol] 98.5 fL Critically high 80.0-94.0 [facility] Comment on above: Performed By: #### T SH, LIPID, T4, FT3, CMP #### [facility] [address] [place] [address] Dr. Alicia Patel PLT 145 103/ul Critically low 150-450 [facility] Comment on above: Performed By: #### T SH, LIPID, T4, FT3, CMP #### [facility] [address] [place] [address] Dr. Alicia Patel RBC 3.34 106/ul Critically low 4.70-6.10 [facility] Comment on above: Performed By: #### T SH, LIPID, T4, FT3, CMP #### [facility] [address] [place] [address] Dr. Alicia Patel WBC 5.1 103/ul Normal 4.0-11.0 [facility] Comment on above: Performed By: #### T SH, LIPID, T4, FT3, CMP #### [facility] [address] [place] [address] Dr. Alicia Patel MAGNESIUMon 09-13-2022 Magnesium [Mass/Vol] 1.5 mg/dL Critically low 1.8-2.4 [facility] Comment on above: Performed By: #### T SH, LIPID, T4, FT3, CMP #### [facility] [address] [place] [address] Dr. Alicia Patel RENAL FUNCTION PANELon 09-13 Albumin [Mass/Vol] 3.5 g/dL Normal 3.4-5.0 [facility] Comment on above: Performed By: #### U RTPCR #### [facility] [address] [place] [address] Dr. Alicia Patel Calcium [Mass/Vol] 8.4 mg/dL Critically low 8.5-10.1 [facility] Comment on above: Performed By: #### U RTPCR #### [facility] [address] [place] [address] [address] Alicia Patel Chloride [Moles/Vol] 107 mmol/L Normal 98-107 [facility] Comment on above: Performed By: #### U RTPCR #### [facility] [address] [place] [address] [address] Alicia Patel CO2 [Moles/Vol] 25.1 mmol/L Normal 21.0-32.0 [facility] Comment on above: Performed By: #### U RTPCR #### [facility] [address] [place] [address] [address] Alicia Patel Creatinine [Mass/Vol] 1.96 mg/dL Critically high 0.70-1.30 [facility] Comment on above: Performed By: #### U RTPCR #### [facility] [address] [place] [address] Dr. Alicia Patel EGFR-AF TAJIK 40 mL/min/1.73m2 Critically low >=60 [facility] Comment on above: Performed By: #### U RTPCR #### [facility] [address] [place] [address] Dr. Alicia Patel EGFR-NON AF TAJIK 33 mL/min/1.73m2 Critically low >=60 [facility] Comment on above: Performed By: #### U RTPCR #### [facility] [address] [place] [address] Dr. Alicia Patel Glucose [Mass/Vol] 151 mg/dL Critically high 74-106 [facility] Comment on above: Performed By: #### U RTPCR #### [facility] [address] [address] [address] Alicia Patel Phosphate [Mass/Vol] 3.5 mg/dL Normal 2.6-4.7 [facility] Comment on above: Performed By: #### U RTPCR #### [facility] [address] [place] [address] [address] Alicia Patel Potassium [Moles/Vol] 4.3 mmol/L Normal 3.5-5.1 [facility] Comment on above: Performed By: #### U RTPCR #### [facility] [address] [place] [address] Dr. Alicia Patel Sodium [Moles/Vol] 142 mmol/L Normal 136-145 [facility] Comment on above: Performed By: #### U RTPCR #### [facility] [address] [place] [address] Dr. Alicia Patel Urea nitrogen [Mass/Vol] 23.0 mg/dL Critically high 7.0-18.0 [facility] Comment on above: Performed By: #### U RTPCR #### [facility] [address] [place] [address] Dr. Alicia Patel UA RANDOM W/MICROSCOPICon BACTERIA TRACE Abnormal NONE SEEN [facility] Comment on above: Performed By: #### T SH, LIPID, T4, FT3, CMP #### [facility] [address] [place] [address] Dr. Alicia Patel Bilirubin Ql (U) Negative Normal NEGATIVE [facility] Comment on above: Performed By: #### T SH, LIPID, T4, FT3, CMP #### [facility] [address] [place] [address] Dr. Alicia Patel CAST NONE SEEN Normal NONE SEEN [facility] Comment on above: Performed By: #### T SH, LIPID, T4, FT3, CMP #### [facility] [address] [place] [address] Dr. Alicia Patel Clarity (U) CLEAR Normal CLEAR [facility] Comment on above: Performed By: #### T SH, LIPID, T4, FT3, CMP #### [facility] [address] [place] [address] Dr. Alicia Patel Color (U) LT. YELLOW Normal YELLOW [facility] Comment on above: Performed By: #### T SH, LIPID, T4, FT3, CMP #### [facility] [address] [place] [address] Dr. Alicia Patel Crystals LM Nom (Urine sed) NONE SEEN Normal NONE SEEN [facility] Comment on above: Performed By: #### T SH, LIPID, T4, FT3, CMP #### [facility] [address] [place] [address] [address] Alicia Patel Epithelial cells LM Ql (Urine sed) RARE Normal NONE SEEN /RARE [facility] Comment on above: Performed By: #### T SH, LIPID, T4, FT3, CMP #### [facility] [address] [place] [address] [address] Alicia Patel Glucose Ql (U) 500 mg/dl Abnormal NEGATIVE [facility] Comment on above: Performed By: #### T SH, LIPID, T4, FT3, CMP #### [facility] [address] [place] [address] [address] Alicia Patel Hemoglobin Ql (U) LARGE Abnormal NEGATIVE [facility] Comment on above: Performed By: #### T SH, LIPID, T4, FT3, CMP #### [facility] [address] [place] [address] Dr. Alicia Patel Ketones Ql (U) Negative Normal NEGATIVE [facility] Comment on above: Performed By: #### T SH, LIPID, T4, FT3, CMP #### [facility] [address] [place] [address] Dr. Alicia Patel LEUKOCYTES Negative Normal NEGATIVE [facility] Comment on above: Performed By: #### T SH, LIPID, T4, FT3, CMP #### [facility] [address] [place] [address] [address] Alicia Patel MUCOUS NONE SEEN Normal NONE SEEN [facility] Comment on above: Performed By: #### T SH, LIPID, T4, FT3, CMP #### [facility] [address] [address] [address] Alicia Patel Nitrite Ql (U) Negative Normal NEGATIVE [facility] Comment on above: Performed By: #### T SH, LIPID, T4, FT3, CMP #### [facility] [address] [address] [address] Alicia Patel pH (U) 6.0 [pH] Normal 5-9 [facility] Comment on above: Performed By: #### T SH, LIPID, T4, FT3, CMP #### [facility] [address] [place] [address] Dr. Alicia Patel RBC 20-50 Abnormal 0-2 [facility] Comment on above: Performed By: #### T SH, LIPID, T4, FT3, CMP #### [facility] [address] [place] [address] Dr. Alicia Patel SPEC GRAVITY 1.020 Normal 1.005-<=1. 025 [facility] Comment on above: Performed By: #### T SH, LIPID, T4, FT3, CMP #### [facility] [address] [place] [address] Dr. Alicia Patel UA PROTEIN 100 mg/dl Abnormal NEGATIVE/ TRACE [facility] Comment on above: Performed By: #### T SH, LIPID, T4, FT3, CMP #### [facility] [address] [place] [address] Dr. Alicia Patel Urobilinogen Qn (U) 0.2 {Wil'U}/dL Normal 0.2 - 1. 0 [facility] Comment on above: Performed By: #### T SH, LIPID, T4, FT3, CMP #### [facility] [address] [place] [address] Dr. Alicia Patel WBC 0-2 Abnormal NONE SEEN [facility] Comment on above: Performed By: #### T SH, LIPID, T4, FT3, CMP #### [facility] [address] [place] [address] Dr. Alicia Patel URIC ACID SERUMon 09-13-2022 Urate [Mass/Vol] 5.8 mg/dL Normal 3.5-7.2 [facility] Comment on above: Performed By: #### U RTPCR #### [facility] [address] [place] [address] Dr. Alicia Patel URINE T PROTEIN CREAT RATIOo n 09-13-2022 Protein (U) [Mass/Vol] 122.4 mg/dL Critically high <=12.0 [facility] Comment on above: Performed By: #### U RTPCR #### [facility] [address] [place] [address] Dr. Alicia Patel UR PROT CREAT RAT 1.38 Normal [facility] Comment on above: Performed By: #### U RTPCR #### [facility] [address] [address] [address] Alicia Patel URINE CREAT 88.74 mg/dL Normal 20.00-300. 00 [facility] Comment on above: Performed By: #### U RTPCR #### [facility] [address] [address] [address] Alicia Patel VITAMIN D 25 OHon 09-13-2022 VIT D 25-OH 58.0 ng/mL Normal [facility] Comment on above: Performed By: #### T SH, LIPID, T4, FT3, CMP #### [facility] [address] [place] [address] Dr. Alicia Patel VIT D RANGES SEE BELOW Normal [facility] Comment on above: Result Comment: <20 ng/mL Vit D deficient 20 - <30 ng/mL Vit D insufficient 30 - 100 ng/mL Vit D sufficient >100 ng/mL Potential Toxicity Performed By: #### T SH, LIPID, T4, FT3, CMP #### [facility] [address] [place] [address] Dr. Alicia Patel Pre-Certification Formon Pre-Certification Form [id number]#[id number]:127 Normal [facility] RAD - Ultrasound Reporton RAD - Ultrasound Report [id number]:127 Normal [facility] Screenson 09-07-2022 Screens [id number]:12 7 Normal [facility] Patient Educationon 09-07-19 23 Patient Education [...] these instructions at home: Medicines ? Take ucda-uax-vjeoqzp and prescription medicines only as told by [...] 11/29/2008 Document Revised: 10/30/2019 Document Reviewed: 10/30/2019 [employer] Patient Education ? 2019 [employer]. Isamar Carrillo [facility] Urology Office/Clinic Noteon 09-06-2022 Urology Office/Clinic Note Chief Complaint Pt is here for [facility] ER f/u HPI Staff Victorino is a 82 y.o. male here for hospital follow up. Pt was seen at [facility]. Previous Dx: acute kidney failure, BPH w/ urinary obstruction, elevated PSA, ED, flank pain, hydronephrosis, kidney stone, prostate cancer, ureteral stone, urinary retention. S/P cysto/stent removal done on 04/15/20, cysto/bilateral dilation ureteral/stent done on 03/11/20, TURP done on 08/01/19, biopsy of prostate done on 07/04/19, cysto/RG/laser done on 06/27/19. Pt presented to [facility] on 08/11/22 for shortness of breath. Pt presented to [facility] later that evening on [...] the prior CT scan performed at the [facility]. The options include both nephroscopic/ureteroscopic approach [...] (more content not included)... Normal [facility] Comment on above: Result Comment: Elec [...] TYLER MONSIVAIS Date: 2022-09-01 09:33 Normal [facility] CT chest wo con high reson 0 08-31-2022 CT chest wo con high res [facility] [place] [address] [place] [id number] Scan Report Signed Patient: Victorino Smyth MR#: [id number] : 1940 Acct:[id number] Age/Sex: 82 / M ADM Date: 08/31/22 Loc: CT Room: Type: [facility] Attending Dr: Hiral Interiano MD Copies to: Hiral Interiano MD Ordering Provider: Hiral Interiano MD Date of Service: 08/31/22 CT/CT chest wo con high res: follow up left lower lung nodule CT CHEST WITHOUT IV CONTRAST: High-resolution protocol. CLINICAL HISTORY: Lung nodule seen on outside imaging. COMPARISON: CT abdomen and pelvis from [facility] 08/11/2022 TECHNIQUE: Spiral images were obtained [...] Perez Jr., DManoharOManohar08/31/2022 3:25 PM Dictation Location: [place] [address] Transcribed By: [facility] 08/31/22 1525 Dictated By: Ifeanyi Perez Jr, DO 08/31/22 1520 Signed By: 08/31/22 1525 Normal [facility] PSA, FREE AND TOTAL RATIOon 08-25-2022 % Free PSA 13.7 % Normal [facility] Comment on above: Result Comment: The table [...] T SH, LIPID, T4, FT3, CMP #### [facility] [address] [place] [address] Dr. Alicia Patel Prostate specific Ag [Mass/Vol] 6.2 ng/mL Critically high 0.0-4.0 [facility] Comment on above: Result Comment: Dwight JUAREZ methodology. . According to the [place] [employer], Serum PSA should decrease and [...] T SH, LIPID, T4, FT3, CMP #### [facility] [address] [address] [address] Alicia Patel PSA, Free 0.85 ng/mL Normal N/A [facility] Comment on above: Result Comment: Dwight linares ECLIA methodology. Performed By: #### T SH, LIPID, T4, FT3, CMP #### [facility] [address] [place] [address] Dr. Alicia DAVALOS BLD IMMUNO SCREENon 07-29 OCCULT BLOOD Negative Normal NEGATIVE [facility] Comment on above: Performed By: #### T SH, LIPID, T4, FT3, CMP #### [facility] [address] [place] [address] Dr. Alicia Patel CBC AUTO DIFFon 08-21-2022 BASO # 0.0 103/ul Normal 0.0-0.1 [facility] Comment on above: Performed By: #### U RTPCR #### [facility] [address] [place] [address] Dr. Alicia Patel Basophils/100 WBC (Bld) 0.3 % Normal 0.2-2.0 [facility] Comment on above: Performed By: #### U RTPCR #### [facility] [address] [place] [address] Dr. Alicia Patel EO # 0.2 103/ul Normal 0.0-0.7 [facility] Comment on above: Performed By: #### U RTPCR #### [facility] [address] [place] [address] Dr. Alicia Patel Eosinophils/100 WBC (Bld) 3.2 % Normal 0.9-7.0 [facility] Comment on above: Performed By: #### U RTPCR #### [facility] [address] [place] [address] Dr. Alicia Patel Erythrocyte distribution width (RBC) [Ratio] 12.9 % Normal 11.0-15.0 [facility] Comment on above: Performed By: #### U RTPCR #### [facility] [address] [place] [address] Dr. Alicia Patel Hematocrit (Bld) [Volume fraction] 35.4 % Critically low 42.0-54.0 [facility] Comment on above: Performed By: #### U RTPCR #### [facility] [address] [place] [address] Dr. Alicia Patel Hemoglobin (Bld) [Mass/Vol] 11.7 g/dL Critically low 14.0-18.0 [facility] Comment on above: Performed By: #### U RTPCR #### [facility] [address] [place] [address] Dr. Alicia Patel IG # 0.08 10e3/ul Critically high 0.00-0.03 [facility] Comment on above: Performed By: #### U RTPCR #### [facility] [address] [place] [address] Dr. Alicia Patel IG % 1.2 % Critically high 0.0-0.5 [facility] Comment on above: Performed By: #### U RTPCR #### [facility] [address] [place] [address] Dr. Alicia Patel LYMPH # 1.1 103/ul Critically low 1.2-3.8 [facility] Comment on above: Performed By: #### U RTPCR #### [facility] [address] [place] [address] Dr. Alicia Patel Lymphocytes/100 WBC (Bld) 16.6 % Critically low 20.5-60.0 [facility] Comment on above: Performed By: #### U RTPCR #### [facility] [address] [place] [address] Dr. Alicia Patel MANUAL DIFF REQ NO Normal [facility] Comment on above: Performed By: #### U RTPCR #### [facility] [address] [place] [address] Dr. Alicia Patel MCH (RBC) [Entitic mass] 32.4 pg Normal 25.9-34.0 [facility] Comment on above: Performed By: #### U RTPCR #### [facility] [address] [place] [address] Dr. Alicia Patel MCHC (RBC) [Mass/Vol] 33.1 g/dL Normal 29.9-35.2 [facility] Comment on above: Performed By: #### U RTPCR #### [facility] [address] [address] [address] Alicia Patel MCV (RBC) [Entitic vol] 98.1 fL Critically high 80.0-94.0 [facility] Comment on above: Performed By: #### U RTPCR #### [facility] [address] [place] [address] Dr. Alicia Patel MONO # 0.6 103/ul Normal 0.3-0.8 [facility] Comment on above: Performed By: #### U RTPCR #### [facility] [address] [place] [address] Dr. Alicia Patel Monocytes/100 WBC (Bld) 8.8 % Normal 1.7-12.0 [facility] Comment on above: Performed By: #### U RTPCR #### [facility] [address] [place] [address] Dr. Alicia Patel NEUT # 4.8 103/ul Normal 1.4-6.5 [facility] Comment on above: Performed By: #### U RTPCR #### [facility] [address] [place] [address] Dr. Alicia Patel Neutrophils/100 WBC (Bld) 69.9 % Normal 43.0-75.0 [facility] Comment on above: Performed By: #### U RTPCR #### [facility] [address] [place] [address] Dr. Alicia Patel Platelet mean volume (Bld) [Entitic vol] 10.4 fL Normal 9.5-13.5 [facility] Comment on above: Performed By: #### U RTPCR #### [facility] [address] [place] [address] Dr. Alicia Patel PLT 200 103/ul Normal 150-450 [facility] Comment on above: Performed By: #### U RTPCR #### [facility] [address] [place] [address] Dr. Alicia Patel RBC 3.61 106/ul Critically low 4.70-6.10 [facility] Comment on above: Performed By: #### U RTPCR #### [facility] [address] [address] [address] Alicia Patel WBC 6.8 103/ul Normal 4.0-11.0 [facility] Comment on above: Performed By: #### U RTPCR #### [facility] [address] [place] [address] Dr. Alicia Patel FREE T3on 08-21-2022 FREE T3 1.91 pg/mlL Critically low 2.18-3.98 [facility] Comment on above: Performed By: #### T SH, LIPID, T4, FT3, CMP #### [facility] [address] [place] [address] Dr. Alicia Patel GLYCOHEMOGLOBIN A1Con 2022 ADA RECOMMENDATION SEE BELOW Normal [facility] Comment on above: Result Comment: ADA RECOMMENDED LIMIT 4.0 - 6.0 ADA THERAPEUTIC TARGET < 7.0 ACTION SUGGESTED > 7.0 Performed By: #### T SH, LIPID, T4, FT3, CMP #### [facility] [address] [place] [address] Dr. Alicia Patel Glucose [Mass/Vol] 194 mg/dL Normal [facility] Comment on above: Performed By: #### T SH, LIPID, T4, FT3, CMP #### [facility] [address] [place] [address] Dr. Alicia Patel HbA1c (Bld) [Mass fraction] 8.4 % Critically high 4.5-6.2 [facility] Comment on above: Performed By: #### T SH, LIPID, T4, FT3, CMP #### [facility] [address] [place] [address] Dr. Alicia Patel LIPID PROFILEon 08-21-2022 CHOL-HDL RATIO NORM SEE BELOW Normal [facility] Comment on above: Result Comment: 3.3 - 4.4 LOW RISK 4.4 - 7.1 AVERAGE RISK 7.1 - 11.0 MODERATE RISK >11.0 HIGH RISK Performed By: #### T SH, LIPID, T4, FT3, CMP #### [facility] [address] [place] [address] Dr. Alicia Patel Cholesterol [Mass/Vol] 120 mg/dL Normal <=200 Th e [facility] Comment on above: Performed By: #### T SH, LIPID, T4, FT3, CMP #### [facility] [address] [address] [address] Alicia Patel Cholesterol in HDL [Mass/Vol] 30 mg/dL Critically low 40-60 [facility] Comment on above: Performed By: #### T SH, LIPID, T4, FT3, CMP #### [facility] [address] [address] [address] Alicia Patel Cholesterol in LDL [Mass/Vol] 59.8 mg/dL Normal [facility] Comment on above: Performed By: #### T SH, LIPID, T4, FT3, CMP #### [facility] [address] [place] [address] Dr. Alicia Patel Cholesterol.total/Chol esterol in HDL [Mass ratio] 4.0 {ratio} Normal [facility] Comment on above: Performed By: #### T SH, LIPID, T4, FT3, CMP #### [facility] [address] [place] [address] Dr. Alicia Patel HDL NORMAL > or = 60 mg/dl - LO W CARDIOVASCULAR RISK <40 mg/dl - HIGH CARDIOVASCULAR RISK Normal [facility] Comment on above: Performed By: #### T SH, LIPID, T4, FT3, CMP #### [facility] [address] [place] [address] Dr. Alicia Patel LDL CALC NORMAL SEE BELOW Normal [facility] Comment on above: Result Comment: <100 mg/dl OPTIMAL 100 - 129 mg/dl NEAR OR ABOVE OPTIMAL 130 - 159 mg/dl BORDERLINE HIGH 160 - 189 mg/dl HIGH >190 mg/dl VERY HIGH Performed By: #### T SH, LIPID, T4, FT3, CMP #### [facility] [address] [place] [address] Dr. Alicia Patel Triglyceride [Mass/Vol] 151 mg/dL Critically high <=150 [facility] Comment on above: Performed By: #### T SH, LIPID, T4, FT3, CMP #### [facility] [address] [address] [address] Alicia Patel VLDL CALC 30.2 mg/dL Normal [facility] Comment on above: Performed By: #### T SH, LIPID, T4, FT3, CMP #### [facility] [address] [place] [address] Dr. Alicia Patel PROF 14(COMP METB)on 023 Albumin [Mass/Vol] 3.3 g/dL Critically low 3.4-5.0 [facility] Comment on above: Performed By: #### T SH, LIPID, T4, FT3, CMP #### [facility] [address] [place] [address] Dr. Alicia Patel Albumin/Globulin [Mass ratio] 0.9 {ratio} Normal [facility] Comment on above: Performed By: #### T SH, LIPID, T4, FT3, CMP #### [facility] [address] [place] [address] Dr. Alicia Patel ALP [Catalytic activity/Vol] 79 U/L Normal 46-116 [facility] Comment on above: Performed By: #### T SH, LIPID, T4, FT3, CMP #### [facility] [address] [address] [address] Alicia Patel ALT [Catalytic activity/Vol] 61 U/L Normal 16-63 [facility] Comment on above: Performed By: #### T SH, LIPID, T4, FT3, CMP #### [facility] [address] [address] [address] Alicia Patel Anion gap [Moles/Vol] 12.6 mmol/L Normal [facility] Comment on above: Performed By: #### T SH, LIPID, T4, FT3, CMP #### [facility] [address] [place] [address] Dr. Alicia Patel AST [Catalytic activity/Vol] 39 U/L Critically high 15-37 [facility] Comment on above: Performed By: #### T SH, LIPID, T4, FT3, CMP #### [facility] [address] [place] [address] Dr. Alicia Patel Bilirubin [Mass/Vol] 0.7 mg/dL Normal 0.2-1.0 [facility] Comment on above: Performed By: #### T SH, LIPID, T4, FT3, CMP #### [facility] [address] [place] [address] Dr. Alicia Patel Calcium [Mass/Vol] 8.9 mg/dL Normal 8.5-10.1 [facility] Comment on above: Performed By: #### T SH, LIPID, T4, FT3, CMP #### [facility] [address] [place] [address] Dr. Alicia Patel Chloride [Moles/Vol] 111 mmol/L Critically high 98-107 [facility] Comment on above: Performed By: #### T SH, LIPID, T4, FT3, CMP #### [facility] [address] [place] [address] Dr. Alicia Patel CO2 [Moles/Vol] 24.0 mmol/L Normal 21.0-32.0 [facility] Comment on above: Performed By: #### T SH, LIPID, T4, FT3, CMP #### [facility] [address] [place] [address] Dr. Alicia Patel Creatinine [Mass/Vol] 1.80 mg/dL Critically high 0.70-1.30 [facility] Comment on above: Performed By: #### T SH, LIPID, T4, FT3, CMP #### [facility] [address] [place] [address] Dr. Alicia Patel EGFR-AF TAJIK 44 mL/min/1.73m2 Critically low >=60 [facility] Comment on above: Performed By: #### T SH, LIPID, T4, FT3, CMP #### [facility] [address] [place] [address] Dr. Alicia Patel EGFR-NON AF TAJIK 36 mL/min/1.73m2 Critically low >=60 [facility] Comment on above: Performed By: #### T SH, LIPID, T4, FT3, CMP #### [facility] [address] [place] [address] Dr. Alicia Patel Globulin (S) [Mass/Vol] 3.5 g/dL Normal [facility] Comment on above: Performed By: #### T SH, LIPID, T4, FT3, CMP #### [facility] [address] [address] [address] Alicia Patel Glucose [Mass/Vol] 118 mg/dL Critically high 74-106 [facility] Comment on above: Performed By: #### T SH, LIPID, T4, FT3, CMP #### [facility] [address] [address] [address] Alicia Patel Potassium [Moles/Vol] 4.6 mmol/L Normal 3.5-5.1 [facility] Comment on above: Performed By: #### T SH, LIPID, T4, FT3, CMP #### [facility] [address] [place] [address] Dr. Alicia Patel Protein [Mass/Vol] 6.8 g/dL Normal 6.4-8.2 [facility] Comment on above: Performed By: #### T SH, LIPID, T4, FT3, CMP #### [facility] [address] [place] [address] Dr. Alicia Patel Sodium [Moles/Vol] 143 mmol/L Normal 136-145 [facility] Comment on above: Performed By: #### T SH, LIPID, T4, FT3, CMP #### [facility] [address] [place] [address] Dr. Alicia Patel Urea nitrogen [Mass/Vol] 31.0 mg/dL Critically high 7.0-18.0 [facility] Comment on above: Performed By: #### T SH, LIPID, T4, FT3, CMP #### [facility] [address] [place] [address] Dr. Alicia Patel Urea nitrogen/Creatinine [Mass ratio] 17.2 mg/mg Normal [facility] Comment on above: Performed By: #### T SH, LIPID, T4, FT3, CMP #### [facility] [address] [place] [address] Dr. Alicia Patel T4on 08-21-2022 T4 [Mass/Vol] 7.70 ug/dL Normal 4.50-12.10 [facility] Comment on above: Performed By: #### T SH, LIPID, T4, FT3, CMP #### [facility] [address] [place] [address] Dr. Alicia Patel TSHon 08-21-2022 TSH 1.138 uIU/mL Normal 0.358-3.74 0 [facility] Comment on above: Performed By: #### T SH, LIPID, T4, FT3, CMP #### [facility] [address] [place] [address] Dr. Alicia Patel RENAL FUNCTION PANELon 08-18 Albumin [Mass/Vol] 3.3 g/dL Critically low 3.4-5.0 [facility] Comment on above: Performed By: #### U RTPCR #### [facility] [address] [place] [address] Dr. Alicia Patel Calcium [Mass/Vol] 8.3 mg/dL Critically low 8.5-10.1 [facility] Comment on above: Performed By: #### U RTPCR #### [facility] [address] [place] [address] Dr. Alicia Patel Chloride [Moles/Vol] 109 mmol/L Critically high 98-107 [facility] Comment on above: Performed By: #### U RTPCR #### [facility] [address] [place] [address] Dr. Alicia Patel CO2 [Moles/Vol] 22.1 mmol/L Normal 21.0-32.0 [facility] Comment on above: Performed By: #### U RTPCR #### [facility] [address] [place] [address] Dr. Alicia Patel Creatinine [Mass/Vol] 2.14 mg/dL Critically high 0.70-1.30 [facility] Comment on above: Performed By: #### U RTPCR #### [facility] [address] [place] [address] Dr. Alicia Patel EGFR-AF TAJIK 36 mL/min/1.73m2 Critically low >=60 [facility] Comment on above: Performed By: #### U RTPCR #### [facility] [address] [address] [address] Alicia Patel EGFR-NON AF TAJIK 30 mL/min/1.73m2 Critically low >=60 [facility] Comment on above: Performed By: #### U RTPCR #### [facility] [address] [address] [address] Alicia Patel Glucose [Mass/Vol] 102 mg/dL Normal 74-106 [facility] Comment on above: Performed By: #### U RTPCR #### [facility] [address] [address] [address] Alicia Patel Phosphate [Mass/Vol] 3.1 mg/dL Normal 2.6-4.7 [facility] Comment on above: Performed By: #### U RTPCR #### [facility] [address] [address] [address] Alicia Patel Potassium [Moles/Vol] 3.9 mmol/L Normal 3.5-5.1 [facility] Comment on above: Performed By: #### U RTPCR #### [facility] [address] [address] [address] Alicia Patel Sodium [Moles/Vol] 141 mmol/L Normal 136-145 [facility] Comment on above: Performed By: #### U RTPCR #### [facility] [address] [address] [address] Alicia Patel Urea nitrogen [Mass/Vol] 41.0 mg/dL Critically high 7.0-18.0 [facility] Comment on above: Performed By: #### U RTPCR #### [facility] [address] [address] [address] Alicia Patel ED Note-Physicianon 08-17-19 ED Note-Physician [id number]#[id number]:127 Normal [facility] RAD - CT Reporton 08-17-2022 RAD - CT Report [id number]#[id number]:127 [facility] RAD - MISCon 08-17-2022 RAD [facility] [id number]#[id number]:127 [facility] MIS [id number]#1.00CD:127 [facility] Insurance Correspondence Off iceon 08-16-2022 Insurance Correspondence Office [id number]#[id number]:127 [facility] Basic Metabolic Panelon 07-28 Creatinine Clr Calc Pharmacy [facility] Comment on above: Result Comment: PERF ORMED BY: [place] [address] PATHOLOGIST FIRE PROTECTION INSPECTOR DIANDRA LACY M.D. Performed By: #### P T #### [address] Estimated GFR ( Yana 21 [facility] Comment on above: Result Comment: GFR estimated reference range: According to KDOQI guidelines, <60 ml/min/1.73m2 is sufficient to diagnose a patient with chronic kidney disease. Performed By: #### P T #### [address] Estimated GFR (Non- Am 17 [facility] Comment on above: Performed By: #### P T #### [address] Estimated glomerular filtrat ion rate (GFR) non- AmericanOrdered By: Hiral Interiano on 08-15-2022 GFR/1.73 sq M.predicted among non-blacks MDRD (S/P/Bld) [Vol rate/Area] 17 mL/Min [facility] Glucose Glucometer (BldC) [M ass/Vol]Ordered By: Hiral Interiano on 08-15-2022 Glucose [Mass/Vol] 135 mg/dL [facility] Comment on above: Random Glucose Refer ence Range is dependent on time and content of last meal. Glucose of more than 200 mg/dL in a nonstressed, ambulatory subject supports the diagnosis of Diabetes Mellitus. Glucose Poct Glucometerson 0 08-15-2022 Glucose [Mass/Vol] 135 mg/dL Normal [facility] Comment on above: Result Comment: [place] om Glucose Reference Range is dependent on time and content of last meal. Glucose of more than 200 mg/dL in a nonstressed, ambulatory subject supports the diagnosis of Diabetes Mellitus. PERFORMED BY: [place] [address] PATHOLOGIST FIRE PROTECTION INSPECTOR DIANDRA LACY M.D. Performed By: #### G LULS ####Point of Care testing, Glucose [Mass/Vol] 163 mg/dL Normal [facility] Comment on above: Result Comment: [facility] Glucose Reference Range is dependent on time and content of last meal. Glucose of more than 200 mg/dL in a nonstressed, ambulatory subject supports the diagnosis of Diabetes Mellitus. PERFORMED BY: [place] [address] PATHOLOGIST FIRE PROTECTION INSPECTOR DIANDRA LACY M.D. Performed By: #### P T #### [facility] [address] [place] [address] No Panel InformationOrdered By: Hiral Interiano on 08-15-2022 Estimated GFR () 21 mL/Min [facility] Comment on above: GFR estimated refere nce range: According to KDOQI guidelines, <60 ml/min/1.73m2 is sufficient to diagnose a patient with chronic kidney disease. Pharmacy Creatinine Clearance (Chem 21.94 [facility] Serum or plasma anion gap de terminationOrdered By: Hiral Interiano on 08-15-2022 Anion gap [Moles/Vol] 10.3 mmol/L Normal 6.0-15.0 [facility] Comment on above: Performed By: #### P T #### [facility] [address] [place] [address] Serum or plasma calcium alpesh urement (mass/volume)Ordered By: Hiral Interiano on 08-15-2022 Calcium [Mass/Vol] 7.7 mg/dL Low 8.2-10.2 [facility] Comment on above: Performed By: #### P T #### [facility] [address] Serum or plasma chloride adina surement (moles/volume)Ordered By: Hiral Interiano on 08-15-2022 Chloride [Moles/Vol] 112 mmol/L Normal 95-114 [facility] Comment on above: Performed By: #### P T #### [address] Serum or plasma creatinine m easurement with calculation of estimated glomerular filtrOrdered By: Hiral Interiano on 08-15-2022 Creatinine [Mass/Vol] 3.46 mg/dL Significan t change up 0.64-1.27 [facility] Comment on above: Delta: 6.60 on 08/14-432 Performed By: #### P T #### [address] Serum or plasma glucose alpesh urement (mass/volume)Ordered By: Hiral Interiano on 08-15-2022 Glucose [Mass/Vol] 140 mg/dL High 70-100 [facility] Comment on above: ADA recommended refe rence rangeRandom Glucose Reference Range is dependent on time and content of last meal. Glucose of more than 200 mg/dL in a nonstressed, ambulatory subject supports the diagnosis of Diabetes Mellitus. Result Comment: [place] Glucose Reference Range is dependent on time and content of last meal. Glucose of more than 200 mg/dL in a nonstressed, ambulatory subject supports the diagnosis of Diabetes Mellitus. ADA recommended reference range Performed By: #### P T #### [facility] [address] Serum or plasma potassium me asurement (moles/volume)Ordered By: Hiral Interiano on 08-15-2022 Potassium [Moles/Vol] 3.8 mmol/L Normal 3.5-5.1 [facility] Comment on above: Performed By: #### P T #### [address] Serum or plasma sodium measu rement (moles/volume)Ordered By: Hiral Interiano on 08-15-2022 Sodium [Moles/Vol] 140 mmol/L Normal 136-146 [facility] Comment on above: Performed By: #### P T #### [address] Serum or plasma total carbon dioxide measurement (moles/volume)Ordered By: Hiral Interiano on 08-15-2022 CO2 [Moles/Vol] 21.5 mmol/L Low 22.0-30.0 [facility] Comment on above: Performed By: #### P T #### [address] Serum or plasma urea nitroge n measurement (mass/volume)Ordered By: Hiral Interiano on 08-15-2022 Urea nitrogen [Mass/Vol] 45 mg/dL High 9-23 [facility] Comment on above: Performed By: #### P T #### [address] Aerobic Cultureon 08-14-2022 Aerobic Culture ORGANISM: Rosanna al bicans (O:CANALB) Quantity of Growth Light Growth Gram Stain Result 3+ Epithelial Cells 2+ White Blood Cells 3+ Gram Positive Cocci 2+ Gram Negative Bacilli PERFORMED BY: [place] [address] PATHOLOGIST FIRE PROTECTION INSPECTOR DIANDRA LACY M.D. [facility] Comment on above: Performed By: #### B MP #### [address] Basic Metabolic Panelon 07-28 Anion gap [Moles/Vol] 13.0 mmol/L Normal 6.0-15.0 [facility] Comment on above: Performed By: #### C BC, BMP ####[facility] [address] [place] [address] Calcium [Mass/Vol] 7.3 mg/dL Low 8.2-10.2 [facility] Comment on above: Performed By: #### C BC, BMP ####[facility] [place] [address] [facility] Chloride [Moles/Vol] 109 mmol/L Normal 95-114 [facility] Comment on above: Performed By: #### C BC, BMP ####[facility] [place] [address] [facility] CO2 [Moles/Vol] 21.9 mmol/L Low 22.0-30.0 [facility] Comment on above: Performed By: #### C BC, BMP ####[facility] [address] [place] [address] [facility] Creatinine [Mass/Vol] 6.60 mg/dL Significan t change up 0.64-1.27 [facility] Comment on above: Performed By: #### C BC, BMP ####[address] [place] [address] [facility] Creatinine Clr Calc Pharmacy 11.49 [facility] Comment on above: Result Comment: PERF ORMED BY: [facility] [address] [place] [id number] PATHOLOGIST FIRE PROTECTION INSPECTOR DIANDRA LACY M.D. Performed By: #### C BC, BMP ####[address] [place] [address] [facility] Estimated GFR ( Yana 10 [facility] Comment on above: Result Comment: GFR estimated reference range: According to KDOQI guidelines, <60 ml/min/1.73m2 is sufficient to diagnose a patient with chronic kidney disease. Performed By: #### C BC, BMP ####[facility] [place] [address] [facility] Estimated GFR (Non- Am 8 [facility] Comment on above: Performed By: #### C BC, BMP ####[address] [place] [address] [facility] Glucose [Mass/Vol] 140 mg/dL High 70-100 [facility] Comment on above: Result Comment: [place] Glucose Reference Range is dependent on time and content of last meal. Glucose of more than 200 mg/dL in a nonstressed, ambulatory subject supports the diagnosis of Diabetes Mellitus. ADA recommended reference range Performed By: #### C BC, BMP ####[facility] [place] [address] [facility] Potassium [Moles/Vol] 3.9 mmol/L Normal 3.5-5.1 [facility] Comment on above: Performed By: #### C BC, BMP ####[address] [place] [address] [facility] Sodium [Moles/Vol] 140 mmol/L Normal 136-146 [facility] Comment on above: Performed By: #### C BC, BMP ####[address] [place] [phone] [facility] Urea nitrogen [Mass/Vol] 61 mg/dL High 9- [facility] Comment on above: Performed By: #### C BC, BMP ####[id number] [place] Basophils Auto (Bld) [#/Vol] Ordered By: Hiral Interiano on 08-14-2022 Basophils (Bld) [#/Vol] 0.0 10*3/uL 0.0-0.2 [facility] Basophils/100 WBC Auto (Bld) Ordered By: Hiral Interiano on 08-14-2022 Basophils/100 WBC (Bld) 0.2 % . [facility] Complete Blood Count Auto Di ffon 08-14-2022 Basophils (Bld) [#/Vol] 0.0 10*3/uL Normal 0.0-0.2 [facility] Comment on above: Result Comment: PERF ORMED BY: [facility] [address] [place] [id number] PATHOLOGIST FIRE PROTECTION INSPECTOR DIANDRA LACY M.D. Performed By: #### C BC, BMP ####[address] [place] [phone] [facility] Basophils/100 WBC (Bld) 0.2 % Normal . [facility] Comment on above: Performed By: #### C BC, BMP ####[facility] Eosinophils (Bld) [#/Vol] 0.1 10*3/uL Normal 0.0-0.45 [facility] Comment on above: Performed By: #### C [place]OL[place], BMP ####[address] Eosinophils/100 WBC (Bld) 1.0 % Normal . [facility] Comment on above: Performed By: #### C BC, BMP ####[address] Erythrocyte distribution width (RBC) [Ratio] 13.5 % Normal 12.0-14.8 [facility] Comment on above: Performed By: #### C [place]UDOLPH, BMP ####[address] Hematocrit (Bld) [Volume fraction] 35.4 % Low 38.8-50.0 [facility] Comment on above: Performed By: #### C RUDOLPH, BMP ####[address] Hemoglobin (Bld) [Mass/Vol] 12.0 g/dL Low 13.0-17.0 [facility] Comment on above: Performed By: #### C [place]UDOLPH, BMP ####[address] Lymphocytes (Bld) [#/Vol] 0.6 10*3/uL Low 1.00-4.8 [facility] Comment on above: Performed By: #### C BC, BMP ####[address] Lymphocytes/100 WBC (Bld) 7.8 % Normal . [facility] Comment on above: Performed By: #### C BC, BMP ####[address] MCH (RBC) [Entitic mass] 33.0 pg Normal 27.5-35.2 [facility] Comment on above: Performed By: #### C BC, BMP ####[address] MCV (RBC) [Entitic vol] 97.3 fL Normal 83.5-101 [facility] Comment on above: Performed By: #### C [place]UDOLPH, BMP ####[address] Mean Corpuscular HGB Conc 33.9 g/dL Normal 32.5-35.6 [facility] Comment on above: Performed By: #### C RUDOLPH, BMP ####[address] Monocytes (Bld) [#/Vol] 0.8 10*3/uL Normal 0.0-0.8 [facility] Comment on above: Performed By: #### C RUDOLPH, BMP ####[address] Monocytes/100 WBC (Bld) 11.4 % Normal . [facility] Comment on above: Performed By: #### C RUDOLPH, BMP ####[address] Neutrophils (Bld) [#/Vol] 5.9 10*3/uL Normal 1.8-7.7 [facility] Comment on above: Performed By: #### C RUDOLPH, BMP ####[address] Neutrophils/100 WBC (Bld) 79.6 % Normal . [facility] Comment on above: Performed By: #### C RUDOLPH, BMP ####[address] NRBC% 0.1 /100{WBC} Normal 0-0.5 [facility] Comment on above: Performed By: #### C [place]UDOLPH, BMP ####[id number] [facility] Platelet mean volume (Bld) [Entitic vol] 8.4 fL Normal 6.6-10.1 [facility] Comment on above: Performed By: #### C RUDOLPH, BMP ####[address] [place] [address] [place] Platelets (Bld) [#/Vol] 121 10*3/uL Low 150-450 [facility] Comment on above: Performed By: #### C BC, BMP ####[facility] RBC (Bld) [#/Vol] 3.64 10*6/uL Low 3.90-5.60 [facility] Comment on above: Performed By: #### C BC, BMP ####[facility] WBC (Bld) [#/Vol] 7.4 10*3/uL Normal 4.1-10.5 [facility] Comment on above: Performed By: #### C RUDOLPH, BMP ####[address] Eosinophils Auto (Bld) [#/Vo l]Ordered By: Hiral Interiano on 08-14-2022 Eosinophils (Bld) [#/Vol] 0.1 10*3/uL 0.0-0.45 [facility] Eosinophils/100 WBC Auto (Bl d)Ordered By: Hiral Interiano on 08-14-2022 Eosinophils/100 WBC (Bld) 1.0 % . [facility] Erythrocyte distribution wid th Auto (RBC) [Ratio]Ordered By: Hiral Interiano on 08-14-2022 Erythrocyte distribution width (RBC) [Ratio] 13.5 % 12.0-14.8 [facility] Glucose Poct Glucometerson 0 08-14-2022 Commemt1 Glu2: Cleaned Meter Normal [facility] Comment on above: Result Comment: PERF ORMED BY: [facility] [address] [place] [address] PATHOLOGIST FIRE PROTECTION INSPECTOR DIANDRA LACY M.D. Performed By: #### P T #### [facility] [address] Glucose [Mass/Vol] 140 mg/dL Normal [facility] Comment on above: Result Comment: [place] om Glucose Reference Range is dependent on time and content of last meal. Glucose of more than 200 mg/dL in a nonstressed, ambulatory subject supports the diagnosis of Diabetes Mellitus. Performed By: #### P T #### [facility] [address] [place] [address] Glucose [Mass/Vol] 125 mg/dL Normal [facility] Comment on above: Result Comment: [place] om Glucose Reference Range is dependent on time and content of last meal. Glucose of more than 200 mg/dL in a nonstressed, ambulatory subject supports the diagnosis of Diabetes Mellitus. PERFORMED BY: [place] [address] PATHOLOGIST FIRE PROTECTION INSPECTOR DIANDRA LACY M.D. Performed By: #### P T #### [facility] [address] [place] [address] Glucose [Mass/Vol] 140 mg/dL Normal [facility] Comment on above: Result Comment: [place] om Glucose Reference Range is dependent on time and content of last meal. Glucose of more than 200 mg/dL in a nonstressed, ambulatory subject supports the diagnosis of Diabetes Mellitus. PERFORMED BY: [place] [address] PATHOLOGIST FIRE PROTECTION INSPECTOR DIANDRA LACY M.D. Performed By: #### G LULS ####Point of Care testing, Commemt1 Glu2: Cleaned Meter Normal [facility] Comment on above: Result Comment: PERF ORMED BY: [place] [address] PATHOLOGIST FIRE PROTECTION INSPECTOR DIANDRA LACY M.D. Performed By: #### G LULS ####Point of Care testing, Glucose [Mass/Vol] 175 mg/dL Normal [facility] Comment on above: Result Comment: [place] om Glucose Reference Range is dependent on [...] Cocci 2+ Gram Negative Bacilli PERFORMED BY: [place] [address] PATHOLOGIST FIRE PROTECTION INSPECTOR DIANDRA LACY M.D. Normal [facility] Comment on above: Performed By: #### B MP #### [address] Hematocrit Auto (Bld) [Volum e fraction]Ordered By: Hiral Interiano on 08-14-2022 Hematocrit (Bld) [Volume fraction] 35.4 % 38.8-50.0 [facility] Hemoglobin [Mass/volume] in BloodOrdered By: Hiral Interiano on 08-14-2022 Hemoglobin (Bld) [Mass/Vol] 12.0 g/dL 13.0-17.0 [facility] Leukocytes [#/volume] correc ike for nucleated erythrocytes in Blood by Automated counOrdered By: Hiral Interiano on 08-14-2022 WBC corrected for nucl RBC Auto (Bld) [#/Vol] 7.4 10*3/uL 4.1-10.5 [facility] Lymphocytes Auto (Bld) [#/Vo l]Ordered By: Hiral Interiano on 08-14-2022 Lymphocytes (Bld) [#/Vol] 0.6 10*3/uL 1.00-4.8 [facility] Lymphocytes/100 WBC Auto (Bl d)Ordered By: Hiral Interiano on 08-14-2022 Lymphocytes/100 WBC (Bld) 7.8 % . [facility] MCH Auto (RBC) [Entitic mass ]Ordered By: Hiral Interiano on 08-14-2022 MCH (RBC) [Entitic mass] 33.0 pg 27.5-35.2 [facility] MCHC Auto (RBC) [Mass/Vol]Or dered By: Hiral Interiano on 08-14-2022 MCHC (RBC) [Mass/Vol] 33.9 g/dL 32.5-35.6 [facility] MCV Auto (RBC) [Entitic vol] Ordered By: Hiral Interiano on 08-14-2022 MCV (RBC) [Entitic vol] 97.3 fL 83.5-101 [facility] Monocytes Auto (Bld) [#/Vol] Ordered By: Hiral Interiano on 08-14-2022 Monocytes (Bld) [#/Vol] 0.8 10*3/uL 0.0-0.8 [facility] Monocytes/100 WBC Auto (Bld) Ordered By: Hiral Interiano on 08-14-2022 Monocytes/100 WBC (Bld) 11.4 % . [facility] Neutrophils Auto (Bld) [#/Vo l]Ordered By: Hiral Interiano on 08-14-2022 Neutrophils (Bld) [#/Vol] 5.9 10*3/uL 1.8-7.7 [facility] Neutrophils/100 WBC Auto (Bl d)Ordered By: Hiral Interiano on 08-14-2022 Neutrophils/100 WBC (Bld) 79.6 % . [facility] No Panel InformationOrdered By: Hiral Interiano on 08-14-2022 Bedside Glucose Comment Glu2: cleaned meter [facility] Nucleated erythrocytes [Pres ence] in Blood by Automated countOrdered By: Hiral Interiano on 08-14-2022 Nucleated RBC Auto Ql (Bld) 0.1 /100{WBC} 0-0.5 [facility] Platelet mean volume Auto (B ld) [Entitic vol]Ordered By: Hiral Interiano on 08-14-2022 Platelet mean volume (Bld) [Entitic vol] 8.4 fL 6.6-10.1 [facility] Platelets Auto (Bld) [#/Vol] Ordered By: Hiral Interiano on 08-14-2022 Platelets (Bld) [#/Vol] 121 10*3/uL 150-450 [facility] RBC Auto (Bld) [#/Vol]Ordere d By: Hiral Interiano on 08-14-2022 RBC (Bld) [#/Vol] 3.64 10*6/uL 3.90-5.60 [facility] WBC Auto (Bld) [#/Vol]Ordere d By: Hiral Interiano on 08-14-2022 WBC (Bld) [#/Vol] 7.4 10*3/uL 4.1-10.5 [facility] Albumin Levelon 08-13-2022 Albumin [Mass/Vol] 3.0 g/dL Low 3.2-5.5 [facility] Comment on above: Result Comment: PERF ORMED BY: [place] [address] PATHOLOGIST FIRE PROTECTION INSPECTOR DIANDRA LACY M.D. Performed By: #### B MP #### [address] Basic Metabolic Panelon 07-28 Anion gap [Moles/Vol] 18.4 mmol/L High 6.0-15.0 [facility] Comment on above: Order Comment: REDRA W Performed By: #### B MP #### [address] Calcium [Mass/Vol] 7.0 mg/dL Low 8.2-10.2 [facility] Comment on above: Order Comment: REDRA W Performed By: #### B MP #### [address] Chloride [Moles/Vol] 97 mmol/L Normal 95-114 [facility] Comment on above: Order Comment: REDRA W Performed By: #### B MP #### [facility] [address] [place] [address] CO2 [Moles/Vol] 24.5 mmol/L Normal 22.0-30.0 [facility] Comment on above: Order Comment: REDRA W Performed By: #### B MP #### [facility] [address] [place] [address] [place] Creatinine [Mass/Vol] 10.74 mg/dL Significan t change up 0.64-1.27 [facility] Comment on above: Order Comment: REDRA W Performed By: #### B MP #### [facility] [address] [place] [address] [place] Creatinine Clr Calc Pharmacy 7.06 [facility] Comment on above: Order Comment: REDRA W Result Comment: PERF ORMED BY: [place] [address] PATHOLOGIST FIRE PROTECTION INSPECTOR DIANDRA LACY M.D. Performed By: #### B MP #### [place] [address] [place] Estimated GFR ( Yana 6 [facility] Comment on above: Order Comment: REDRA W Result Comment: GFR estimated reference range: According to KDOQI guidelines, <60 ml/min/1.73m2 is sufficient to diagnose a patient with chronic kidney disease. Performed By: #### B MP #### [place] [address] [place] Estimated GFR (Non- Am 5 [facility] Comment on above: Order Comment: REDRA W Performed By: #### B MP #### [address] Glucose [Mass/Vol] 85 mg/dL Normal 70-100 [facility] Comment on above: Order Comment: REDRA W Result Comment: [place] om Glucose Reference Range is dependent on time and content of last meal. Glucose of more than 200 mg/dL in a nonstressed, ambulatory subject supports the diagnosis of Diabetes Mellitus. ADA recommended reference range Performed By: #### B MP #### [place] [address] [place] Potassium [Moles/Vol] 4.9 mmol/L Normal 3.5-5.1 [facility] Comment on above: Order Comment: REDRA W Performed By: #### B MP #### [facility] [address] [place], [place] [id number] [place] Sodium [Moles/Vol] 135 mmol/L Low 136-146 [facility] Comment on above: Order Comment: REDRA W Performed By: #### B MP #### [place] [address] [place] Urea nitrogen [Mass/Vol] 72 mg/dL Significant change up 03-19 [facility] Comment on above: Order Comment: REDRA W Performed By: #### B MP #### [address] Body fluid albumin measureme nt (mass/volume)Ordered By: Alicia Perea on 08-13-2022 Albumin (Body fld) [Mass/Vol] 3.0 g/dL 3.2-5.5 [facility] Complete Blood Count Auto Di ffon 08-13-2022 Basophils (Bld) [#/Vol] 0.0 10*3/uL Normal 0.0-0.2 [facility] Comment on above: Result Comment: PERF ORMED BY: [place] [address] PATHOLOGIST FIRE PROTECTION INSPECTOR DIANDRA LACY M.D. Performed By: #### C BC #### [address] Basophils/100 WBC (Bld) 0.5 % Normal . [facility] Comment on above: Performed By: #### C BC #### [address] Eosinophils (Bld) [#/Vol] 0.1 10*3/uL Normal 0.0-0.45 [facility] Comment on above: Performed By: #### C BC #### [address] Eosinophils/100 WBC (Bld) 0.9 % Normal . [facility] Comment on above: Performed By: #### C BC #### [address] Erythrocyte distribution width (RBC) [Ratio] 13.7 % Normal 12.0-14.8 [facility] Comment on above: Performed By: #### C BC #### [address] Hematocrit (Bld) [Volume fraction] 34.2 % Low 38.8-50.0 [facility] Comment on above: Performed By: #### C BC #### [address] Hemoglobin (Bld) [Mass/Vol] 11.6 g/dL Low 13.0-17.0 [facility] Comment on above: Performed By: #### C BC #### [address] Lymphocytes (Bld) [#/Vol] 0.9 10*3/uL Low 1.00-4.8 [facility] Comment on above: Performed By: #### C BC #### [address] Lymphocytes/100 WBC (Bld) 9.6 % Normal . [facility] Comment on above: Performed By: #### C BC #### [address] MCH (RBC) [Entitic mass] 32.9 pg Normal 27.5-35.2 [facility] Comment on above: Performed By: #### C BC #### [address] MCV (RBC) [Entitic vol] 96.5 fL Normal 83.5-101 [facility] Comment on above: Performed By: #### C BC #### [address] Mean Corpuscular HGB Conc 34.1 g/dL Normal 32.5-35.6 [facility] Comment on above: Performed By: #### C BC #### [address] Monocytes (Bld) [#/Vol] 1.0 10*3/uL High 0.0-0.8 [facility] Comment on above: Performed By: #### C BC #### [address] Monocytes/100 WBC (Bld) 9.8 % Normal . [facility] Comment on above: Performed By: #### C BC #### [address] Neutrophils (Bld) [#/Vol] 7.8 10*3/uL High 1.8-7.7 [facility] Comment on above: Performed By: #### C BC #### [facility] [address] [place] [address] [place] Neutrophils/100 WBC (Bld) 79.2 % Normal . [facility] Comment on above: Performed By: #### C BC #### [facility] [address] NRBC% 0.1 /100{WBC} Normal 0-0.5 [facility] Comment on above: Performed By: #### C BC #### [facility] [address] Platelet mean volume (Bld) [Entitic vol] 8.7 fL Normal 6.6-10.1 [facility] Comment on above: Performed By: #### C BC #### [facility] [address] [place] [address] [place] Platelets (Bld) [#/Vol] 129 10*3/uL Low 150-450 [facility] Comment on above: Performed By: #### C BC #### [facility] [address] [place] [address] [place] RBC (Bld) [#/Vol] 3.54 10*6/uL Low 3.90-5.60 [facility] Comment on above: Performed By: #### C BC #### [facility] [address] [place] [address] [place] WBC (Bld) [#/Vol] 9.9 10*3/uL Normal 4.1-10.5 [facility] Comment on above: Performed By: #### C BC #### [facility] [address] [place] [address] [place] urethrocystogram retroon 08-13-2022 [place] urethrocystogram retro [facility] [place] [address] [place] [address] Fluoroscopy Report Signed Patient: Victorino Smyth MR#: [id number] : 1940 Acct:[id number] Age/Sex: 82 / M ADM Date: 08/11/22 Loc: 4N Room: 3E6153-1 Type: ADM IN Attending Dr: Hiral Interiano [...] Perez Jr., D.OManohar08/13/2022 2:25 PM Dictation Location: [place] [address] Transcribed By: [facility] 08/13/22 142 Dictated By: Ifeanyi Perez Jr, DO 08/13/22 142 Signed By: 08/13/22 142 [facility] Glucose Poct Glucometerson 0 08-13-2022 Commemt1 Glu2: Cleaned Meter [facility] Comment on above: Result Comment: PERF ORMED BY: [place] [address] PATHOLOGIST FIRE PROTECTION INSPECTOR DIANDRA LACY M.D. Performed By: #### B MP #### [facility] [address] [place] [address] Glucose [Mass/Vol] 91 mg/dL [facility] Comment on above: Result Comment: [facility] Glucose Reference Range is dependent on time and content of last meal. Glucose of more than 200 mg/dL in a nonstressed, ambulatory subject supports the diagnosis of Diabetes Mellitus. Performed By: #### B MP #### [facility] [address] [place] [address] Commemt1 Glu2: Cleaned Meter [facility] Comment on above: Result Comment: PERF ORMED BY: [place] [address] PATHOLOGIST FIRE PROTECTION INSPECTOR DIANDRA LACY M.D. Performed By: #### G LULS ####Point of Care testing, Glucose [Mass/Vol] 94 mg/dL Normal [facility] Comment on above: Result Comment: [facility] Glucose Reference Range is dependent on time and content of last meal. Glucose of more than 200 mg/dL in a nonstressed, ambulatory subject supports the diagnosis of Diabetes Mellitus. Performed By: #### G JOHANNE ####Point of Care testing, Operative Reporton Operative Report [id number]:127 Normal [facility] A1C with Estimated Average G marianna 08-12-2022 Glucose [Mass/Vol] 212 mg/dL Normal [facility] Comment on above: Result Comment: PERF ORMED BY: [facility] [address] [place] [address] PATHOLOGIST FIRE PROTECTION INSPECTOR DIANDRA LACY M.D. Performed By: #### B MP #### [facility] [address] HbA1c (Bld) [Mass fraction] 9.0 % High 4.3-5.6 [facility] Comment on above: Result Comment: Incr eased risk for diabetes: 5.7 - 6.4 diabetes: >6.4 glycemic control for adults with diabetes: <7.0 Performed By: #### B MP #### [facility] [address] Basic Metabolic Panelon 07-28 Anion gap [Moles/Vol] 20.6 mmol/L High 6.0-15.0 [facility] Comment on above: Performed By: #### B MP, CBC ####[facility] Calcium [Mass/Vol] 7.1 mg/dL Low 8.2-10.2 [facility] Comment on above: Performed By: #### B MP, CBC ####[facility] [place] [id number] [place] Chloride [Moles/Vol] 104 mmol/L Normal 95-114 [facility] Comment on above: Performed By: #### B MP, CBC ####[facility] [place] [address] [place] CO2 [Moles/Vol] 20.2 mmol/L Low 22.0-30.0 [facility] Comment on above: Performed By: #### B MP, CBC ####[place] [address] [place] [address] [facility] Creatinine [Mass/Vol] 15.50 mg/dL Significan t change up 0.64-1.27 [facility] Comment on above: Performed By: #### B MP, CBC ####[place] [address] [place] [address] [place] Creatinine Clr Calc Pharmacy 4.90 [facility] Comment on above: Result Comment: PERF ORMED BY: [facility] [address] [facility] [place] [address] PATHOLOGIST FIRE PROTECTION INSPECTOR DIANDRA LACY M.D. Performed By: #### B MP, CBC ####[address] [address] [facility] Estimated GFR ( Yana 4 [facility] Comment on above: Result Comment: GFR estimated reference range: According to KDOQI guidelines, <60 ml/min/1.73m2 is sufficient to diagnose a patient with chronic kidney disease. Performed By: #### B MP, CBC ####[address] [address] [facility] Estimated GFR (Non- Am 3 [facility] Comment on above: Performed By: #### B MP, CBC ####[facility] [place] [id number] [facility] Glucose [Mass/Vol] 100 mg/dL Significant change down 70-100 [facility] Comment on above: Result Comment: [place] Glucose Reference Range is dependent on time and content of last meal. Glucose of more than 200 mg/dL in a nonstressed, ambulatory subject supports the diagnosis of Diabetes Mellitus. ADA recommended reference range Performed By: #### B MP, CBC ####[address] [address] [place] Potassium [Moles/Vol] 4.8 mmol/L Significan t change down 3.5-5.1 [facility] Comment on above: Performed By: #### B MP, CBC ####[address] Sodium [Moles/Vol] 140 mmol/L Significant change down 136-146 [facility] Comment on above: Performed By: #### B MP, CBC ####[address] Urea nitrogen [Mass/Vol] 133 mg/dL Significant change up - [facility] Comment on above: Performed By: #### B MP, CBC ####[address] Complete Blood Count Auto Di ffon 08-12-2022 Basophils (Bld) [#/Vol] 0.0 10*3/uL Normal 0.0-0.2 [facility] Comment on above: Result Comment: PERF ORMED BY: [facility] [address] [place] [address] PATHOLOGIST FIRE PROTECTION INSPECTOR DIANDRA LACY M.D. Performed By: #### B MP, CBC ####[address] Basophils/100 WBC (Bld) 0.2 % Normal . [facility] Comment on above: Performed By: #### B MP, CBC ####[address] Eosinophils (Bld) [#/Vol] 0.0 10*3/uL Normal 0.0-0.45 [facility] Comment on above: Performed By: #### B MP, CBC ####[address] Eosinophils/100 WBC (Bld) 0.0 % Normal . [facility] Comment on above: Performed By: #### B MP, CBC ####[address] Erythrocyte distribution width (RBC) [Ratio] 13.6 % Normal 12.0-14.8 [facility] Comment on above: Performed By: #### B MP, CBC ####[address] Hematocrit (Bld) [Volume fraction] 33.6 % Low 38.8-50.0 [facility] Comment on above: Performed By: #### B MP, CBC ####[address] Hemoglobin (Bld) [Mass/Vol] 11.5 g/dL Low 13.0-17.0 [facility] Comment on above: Performed By: #### B MP, CBC ####[address] Lymphocytes (Bld) [#/Vol] 0.6 10*3/uL Low 1.00-4.8 [facility] Comment on above: Performed By: #### B MP, CBC ####[address] Lymphocytes/100 WBC (Bld) 4.4 % Normal . [facility] Comment on above: Performed By: #### B MP, CBC ####[address] MCH (RBC) [Entitic mass] 32.9 pg Normal 27.5-35.2 [facility] Comment on above: Performed By: #### B MP, CBC ####[address] MCV (RBC) [Entitic vol] 95.9 fL Normal 83.5-101 [facility] Comment on above: Performed By: #### B MP, CBC ####[address] Mean Corpuscular HGB Conc 34.3 g/dL Normal 32.5-35.6 [facility] Comment on above: Performed By: #### B MP, CBC ####[address] Monocytes (Bld) [#/Vol] 1.0 10*3/uL High 0.0-0.8 [facility] Comment on above: Performed By: #### B MP, CBC ####[address] Monocytes/100 WBC (Bld) 7.4 % Normal . [facility] Comment on above: Performed By: #### B MP, CBC ####[address] Neutrophils (Bld) [#/Vol] 11.8 10*3/uL High 1.8-7.7 [facility] Comment on above: Performed By: #### B MP, CBC ####[address] Neutrophils/100 WBC (Bld) 88.0 % Normal . [facility] Comment on above: Performed By: #### B MP, CBC ####[address] NRBC% 0.0 /100{WBC} Normal 0-0.5 [facility] Comment on above: Performed By: #### B MP, CBC ####[address] Platelet mean volume (Bld) [Entitic vol] 8.3 fL Normal 6.6-10.1 [facility] Comment on above: Performed By: #### B MP, CBC ####[address] Platelets (Bld) [#/Vol] 162 10*3/uL Normal 150-450 [facility] Comment on above: Performed By: #### B MP, CBC ####[address] RBC (Bld) [#/Vol] 3.51 10*6/uL Low 3.90-5.60 [facility] Comment on above: Performed By: #### B MP, CBC ####[address] WBC (Bld) [#/Vol] 13.4 10*3/uL High 4.1-10.5 [facility] Comment on above: Performed By: #### B MP, CBC ####[facility] [place] [id number] [facility] Consultation Noteon 08-12-19 Consultation Note [id number]:127 Normal [facility] Glucose Poct Glucometerson 0 08-12-2022 Glucose [Mass/Vol] 114 mg/dL Normal [facility] Comment on above: Result Comment: [facility] Glucose Reference Range is dependent on time and content of last meal. Glucose of more than 200 mg/dL in a nonstressed, ambulatory subject supports the diagnosis of Diabetes Mellitus. PERFORMED BY: [place] [address] PATHOLOGIST FIRE PROTECTION INSPECTOR DIANDRA LACY M.D. Performed By: #### G JOHANNE #### Point of Care testing , Glucose [Mass/Vol] 111 mg/dL Normal [facility] Comment on above: Result Comment: [facility] Glucose Reference Range is dependent on time and content of last meal. Glucose of more than 200 mg/dL in a nonstressed, ambulatory subject supports the diagnosis of Diabetes Mellitus. PERFORMED BY: [facility] [address] [place] [address] PATHOLOGIST FIRE PROTECTION INSPECTOR DIANDRA LACY M.D. Performed By: #### G LULS #### Point of Care testing , Glucose [Mass/Vol] 96 mg/dL Normal [facility] Comment on above: Result Comment: [facility] Glucose Reference Range is dependent on time and content of last meal. Glucose of more than 200 mg/dL in a nonstressed, ambulatory subject supports the diagnosis of Diabetes Mellitus. PERFORMED BY: [place] [address] PATHOLOGIST FIRE PROTECTION INSPECTOR DIANDRA LACY M.D. Performed By: #### B MP #### [facility] [address] Glucose [Mass/Vol] 91 mg/dL Normal [facility] Comment on above: Result Comment: [place] Glucose Reference Range is dependent on time and content of last meal. Glucose of more than 200 mg/dL in a nonstressed, ambulatory subject supports the diagnosis of Diabetes Mellitus. PERFORMED BY: [place] [address] PATHOLOGIST FIRE PROTECTION INSPECTOR DIANDRA LACY M.D. Performed By: #### B MP #### [facility] [address] [place] [address] Glucose [Mass/Vol] 93 mg/dL Normal [facility] Comment on above: Result Comment: [place] Glucose Reference Range is dependent on time and content of last meal. Glucose of more than 200 mg/dL in a nonstressed, ambulatory subject supports the diagnosis of Diabetes Mellitus. PERFORMED BY: [place] [address] PATHOLOGIST FIRE PROTECTION INSPECTOR DIANDRA LACY M.D. Performed By: #### P T #### [facility] [address] [place] [address] Commemt1 Glu2: Cleaned Meter Normal [facility] Comment on above: Result Comment: PERF ORMED BY: [place] [address] PATHOLOGIST FIRE PROTECTION INSPECTOR DIANDRA LACY M.D. Performed By: #### G LULS #### Point of Care testing , Glucose [Mass/Vol] 87 mg/dL Normal [facility] Comment on above: Result Comment: [place] Glucose Reference Range is dependent on time [...] from glycated hemoglobin (Bld) [Mass/Vol] 212 mg/dL [facility] Hemoglobin A1c percentageOrd ered By: Hiral Interiano on 08-12-2022 HbA1c (Bld) [Mass fraction] 9.0 % 4.3-5.6 [facility] Comment on above: Increased risk for d iabetes: 5.7 - 6.4diabetes: >6.4glycemic control for adults with diabetes: <7.0 Anisocytosis LM Ql (Bld)Orde red By: Hiral Interiano on 08-11-2022 Anisocytosis Ql (Bld) Slight [facility] Band form neutrophils/100 WB C Manual cnt (Bld)Ordered By: Hiral Interiano on 08-11-2022 Band form neutrophils/100 WBC (Bld) 1 % 0-5 [facility] Basic Metabolic Panelon 07-28 Anion gap [Moles/Vol] 30.1 mmol/L High 6.0-15.0 [facility] Comment on above: Performed By: #### B MP #### [facility] [address] Calcium [Mass/Vol] 7.2 mg/dL Low 8.2-10.2 [facility] Comment on above: Performed By: #### B MP #### [facility] [address] Chloride [Moles/Vol] 99 mmol/L Normal 95-114 [facility] Comment on above: Performed By: #### B MP #### [facility] [address] [place] [id number] [facility] CO2 [Moles/Vol] 9.3 mmol/L Low 22.0-30.0 [facility] Comment on above: Performed By: #### B MP #### [facility] [address] [place] [address] [place] Creatinine Clr Calc Pharmacy 4.24 Normal [facility] Comment on above: Result Comment: PERF ORMED BY: [place] [address] PATHOLOGIST FIRE PROTECTION INSPECTOR DIANDRA LACY M.D. Performed By: #### B MP #### [facility] [address] [place] [address] [place] Estimated GFR ( Yana 3 [facility] Comment on above: Result Comment: GFR estimated reference range: According to KDOQI guidelines, <60 ml/min/1.73m2 is sufficient to diagnose a patient with chronic kidney disease. Performed By: #### B MP #### [facility] [address] Estimated GFR (Non- Am 3 [facility] Comment on above: Performed By: #### B MP #### [facility] [address] Glucose [Mass/Vol] 507 mg/dL Off scale high 70-100 [facility] Comment on above: Result Comment: Resu lts called at 1409 on 08/11/22 Random Glucose Reference Range is dependent on time and content of last meal. Glucose of more than 200 mg/dL in a nonstressed, ambulatory subject supports the diagnosis of Diabetes Mellitus. ADA recommended reference range Performed By: #### B MP #### [address] Potassium [Moles/Vol] 7.4 mmol/L Off scale high 3.5-5.1 [facility] Comment on above: Result Comment: Resu lts called at 1409 on 08/11/22 Performed By: #### B MP #### [address] Sodium [Moles/Vol] 131 mmol/L Low 136-146 [facility] Comment on above: Performed By: #### B MP #### [facility] [address] [place] [address] [place] Urea nitrogen [Mass/Vol] 163 mg/dL High 03-19 [facility] Comment on above: Performed By: #### B MP #### [place] [address] [place] Beta Hydroxybuterateon 08-11 Beta Hydroxybuterate 2.40 mmol/L High 0.05-0.27 [facility] Comment on above: Result Comment: PERF ORMED BY: [facility] [address] [place] [address] PATHOLOGIST FIRE PROTECTION INSPECTOR DIANDRA LACY M.D. Performed By: #### B MP #### [facility] [address] Beta-hydroxybutyric acid adina surementOrdered By: Alicia Perea on 08-11-2022 Beta hydroxybutyrate [Mass/Vol] 2.40 mmol/L 0.05-0.27 [facility] [place] cells [Presence] in Blo od by Light microscopyOrdered By: Hiral Interiano on 08-11-2022 [place] cells LM Ql (Bld) Slight Fi [facility] CARDIAC GUIDO 3-6on 3 CK [Catalytic activity/Vol] 162 U/L Normal 39-308 [facility] Comment on above: Performed By: #### T SH, LIPID, T4, FT3, CMP #### [facility] [address] [address] [address] Alicia Patel CK.MB [Mass/Vol] 5.52 ng/mL Critically high <=3.60 [facility] Comment on above: Performed By: #### T SH, LIPID, T4, FT3, CMP #### [facility] [address] [place] [address] [address] Alicia Patel HSTROP 19.7 pg/mL Normal 4.0-76.1 [facility] Comment on above: Result Comment: CUT- OFF POINTS HAVE BEEN ESTABLISHED BASED ON THE FOURTH UNIVERSAL DEFINITIONS OF MYOCARDIAL INFARCTION. THE UPPER REFERENCE LIMIT (URL) OF TROPONIN, DEFINED THE 99TH PERCENTILE OF cTnI DISTRIBUTION IN A REFERENCE POPULATION, HAS BEEN CONFIRMED THE DECISION THRESHOLD FOR [place] DIAGNOSIS. Performed By: #### T SH, LIPID, T4, FT3, CMP #### [facility] [address] [address] [address] Alicia Patel CK [Catalytic activity/Vol] 150 U/L Normal 39-308 [facility] Comment on above: Performed By: #### T SH, LIPID, T4, FT3, CMP #### [facility] [address] [place] [address] [address] Alicia Patel CK.MB [Mass/Vol] 4.99 ng/mL Critically high <=3.60 [facility] Comment on above: Performed By: #### T SH, LIPID, T4, FT3, CMP #### [facility] [address] [address] [address] Alicia Patel HSTROP 16.9 pg/mL Normal 4.0-76.1 [facility] Comment on above: Result Comment: CUT- OFF POINTS HAVE BEEN ESTABLISHED BASED ON THE FOURTH UNIVERSAL DEFINITIONS OF MYOCARDIAL INFARCTION. THE UPPER REFERENCE LIMIT (URL) OF TROPONIN, DEFINED THE 99TH PERCENTILE OF cTnI DISTRIBUTION IN A REFERENCE POPULATION, HAS BEEN CONFIRMED THE DECISION THRESHOLD FOR MN DIAGNOSIS. Performed By: #### T SH, LIPID, T4, FT3, CMP #### [facility] [address] [place] [address] Dr. Alicia Patel CARDIAC GUIDO ADMITon 023 CK [Catalytic activity/Vol] 128 U/L Normal 39-308 [facility] Comment on above: Performed By: #### T SH, LIPID, T4, FT3, CMP #### [facility] [address] [place] [address] [address] Alicia Patel CK.MB [Mass/Vol] 4.95 ng/mL Critically high <=3.60 [facility] Comment on above: Performed By: #### T SH, LIPID, T4, FT3, CMP #### [facility] [address] [place] [address] Dr. Alicia Patel HSTROP 18.0 pg/mL Normal 4.0-76.1 [facility] Comment on above: Result Comment: CUT- OFF POINTS HAVE BEEN ESTABLISHED BASED ON THE FOURTH UNIVERSAL DEFINITIONS OF MYOCARDIAL INFARCTION. THE UPPER REFERENCE LIMIT (URL) OF TROPONIN, DEFINED THE 99TH PERCENTILE OF cTnI DISTRIBUTION IN A REFERENCE POPULATION, HAS BEEN CONFIRMED THE DECISION THRESHOLD FOR [place] DIAGNOSIS. Performed By: #### T SH, LIPID, T4, FT3, CMP #### [facility] [address] [place] [address] Dr. Alicia Patel LIZZY 188 ng/mL Critically high 16-96 [facility] Comment on above: Performed By: #### T SH, LIPID, T4, FT3, CMP #### [facility] [address] [place] [address] Dr. Alicia Patel CBC AUTO DIFFon 08-11-2022 BASO # 0.0 103/ul Normal 0.0-0.1 [facility] Comment on above: Performed By: #### T SH, LIPID, T4, FT3, CMP #### [facility] [address] [place] [address] Dr. Alicia Patel Basophils/100 WBC (Bld) 0.3 % Normal 0.2-2.0 [facility] Comment on above: Performed By: #### T SH, LIPID, T4, FT3, CMP #### [facility] [address] [place] [address] Dr. Alicia Patel EO # 0.2 103/ul Normal 0.0-0.7 [facility] Comment on above: Performed By: #### T SH, LIPID, T4, FT3, CMP #### [facility] [address] [place] [address] Dr. Alicia Patel Eosinophils/100 WBC (Bld) 1.8 % Normal 0.9-7.0 [facility] Comment on above: Performed By: #### T SH, LIPID, T4, FT3, CMP #### [facility] [address] [place] [address] Dr. Alicia Patel Erythrocyte distribution width (RBC) [Ratio] 13.2 % Normal 11.0-15.0 [facility] Comment on above: Performed By: #### T SH, LIPID, T4, FT3, CMP #### [facility] [address] [place] [address] Dr. Alicia Patel Hematocrit (Bld) [Volume fraction] 36.0 % Critically low 42.0-54.0 [facility] Comment on above: Performed By: #### T SH, LIPID, T4, FT3, CMP #### [facility] [address] [place] [address] Dr. Alicia Patel Hemoglobin (Bld) [Mass/Vol] 12.0 g/dL Critically low 14.0-18.0 [facility] Comment on above: Performed By: #### T SH, LIPID, T4, FT3, CMP #### [facility] [address] [place] [address] Dr. Alicia Patel IG # 0.34 10e3/ul Critically high 0.00-0.03 [facility] Comment on above: Performed By: #### T SH, LIPID, T4, FT3, CMP #### [facility] [address] [place] [address] Dr. Alicia Patel IG % 3.8 % Critically high 0.0-0.5 [facility] Comment on above: Performed By: #### T SH, LIPID, T4, FT3, CMP #### [facility] [address] [place] [address] Dr. Alicia Patel LYMPH # 0.5 103/ul Critically low 1.2-3.8 [facility] Comment on above: Performed By: #### T SH, LIPID, T4, FT3, CMP #### [facility] [address] [place] [address] Dr. Alicia Patel Lymphocytes/100 WBC (Bld) 5.9 % Critically low 20.5-60.0 [facility] Comment on above: Performed By: #### T SH, LIPID, T4, FT3, CMP #### [facility] [address] [place] [address] Dr. Alicia Patel MANUAL DIFF REQ NO Normal [facility] Comment on above: Performed By: #### T SH, LIPID, T4, FT3, CMP #### [facility] [address] [place] [address] Dr. Alicia Patel MCH (RBC) [Entitic mass] 32.3 pg Normal 25.9-34.0 [facility] Comment on above: Performed By: #### T SH, LIPID, T4, FT3, CMP #### [facility] [address] [place] [address] Dr. Alicia Patel MCHC (RBC) [Mass/Vol] 33.3 g/dL Normal 29.9-35.2 [facility] Comment on above: Performed By: #### T SH, LIPID, T4, FT3, CMP #### [facility] [address] [place] [address] Dr. Alicia Patel MCV (RBC) [Entitic vol] 97.0 fL Critically high 80.0-94.0 [facility] Comment on above: Performed By: #### T SH, LIPID, T4, FT3, CMP #### [facility] [address] [place] [address] Dr. Alicia Patel MONO # 0.5 103/ul Normal 0.3-0.8 [facility] Comment on above: Performed By: #### T SH, LIPID, T4, FT3, CMP #### [facility] [address] [place] [address] Dr. Alicia Patel Monocytes/100 WBC (Bld) 5.5 % Normal 1.7-12.0 [facility] Comment on above: Performed By: #### T SH, LIPID, T4, FT3, CMP #### [facility] [address] [place] [address] Dr. Alicia Patel NEUT # 7.5 103/ul Critically high 1.4-6.5 [facility] Comment on above: Performed By: #### T SH, LIPID, T4, FT3, CMP #### [facility] [address] [place] [address] Dr. Alicia Patel Neutrophils/100 WBC (Bld) 82.7 % Critically high 43.0-75.0 [facility] Comment on above: Performed By: #### T SH, LIPID, T4, FT3, CMP #### [facility] [address] [place] [address] Dr. Alicia Patel Platelet mean volume (Bld) [Entitic vol] 10.2 fL Normal 9.5-13.5 [facility] Comment on above: Performed By: #### T SH, LIPID, T4, FT3, CMP #### [facility] [address] [place] [address] Dr. Alicia Patel PLT 191 103/ul Normal 150-450 [facility] Comment on above: Performed By: #### T SH, LIPID, T4, FT3, CMP #### [facility] [address] [place], [place] [address] Dr. Alicia Patel RBC 3.71 106/ul Critically low 4.70-6.10 [facility] Comment on above: Performed By: #### T SH, LIPID, T4, FT3, CMP #### [facility] [address] [place], [place] [address] Dr. Alicia Patel WBC 9.0 103/ul Normal 4.0-11.0 [facility] Comment on above: Performed By: #### T SH, LIPID, T4, FT3, CMP #### [facility] [address] [place], [place] [address] ABD/PELVIS WO CONon [...] ILA GALLEGO Date: 2022-08-11 08:38 Normal [facility] Covid-19 PCR (CVDTBH)on 07-28 SARS-CoV-2 (COVID-19) RNA SAVANNAH+probe Ql (Unsp spec) Not detected Normal NOT DETECTED [facility] Comment on above: Result Comment: When [...] for this test is supported by the Tip Scourer of Health and Human Service's declaration that [...] T SH, LIPID, T4, FT3, CMP #### [facility] [address] [place] [address] [address] Alicia Patel Diff and CBCon 08-11-2022 Anisocytosis Ql (Bld) Slight Normal [facility] Comment on above: Performed By: #### P T #### [address] Band form neutrophils/100 WBC (Bld) 1 % Normal 0-5 [facility] Comment on above: Performed By: #### P T #### [address] Crenated RBC Slight Normal [facility] Comment on above: Performed By: #### P T #### [address] Erythrocyte distribution width (RBC) [Ratio] 13.8 % Normal 12.0-14.8 [facility] Comment on above: Performed By: #### P T #### [address] Hematocrit (Bld) [Volume fraction] 38.1 % Low 38.8-50.0 [facility] Comment on above: Performed By: #### P T #### [address] Hemoglobin (Bld) [Mass/Vol] 12.5 g/dL Low 13.0-17.0 [facility] Comment on above: Performed By: #### P T #### [address] Lymphocytes/100 WBC (Bld) 5 % Low 18-42 [facility] Comment on above: Performed By: #### P T #### [address] MCH (RBC) [Entitic mass] 32.5 pg Normal 27.5-35.2 [facility] Comment on above: Performed By: #### P T #### [address] MCV (RBC) [Entitic vol] 99.0 fL Normal 83.5-101 [facility] Comment on above: Performed By: #### P T #### [address] Mean Corpuscular HGB Conc 32.8 g/dL Normal 32.5-35.6 [facility] Comment on above: Performed By: #### P T #### [address] Microcytosis Slight Normal [facility] Comment on above: Performed By: #### P T #### [address] Monocytes/100 WBC (Bld) 1 % Low 2-11 [facility] Comment on above: Performed By: #### P T #### [address] Platelet Estimate Normal Normal Normal [facility] Comment on above: Performed By: #### P T #### [address] Platelet mean volume (Bld) [Entitic vol] 8.8 fL Normal 6.6-10.1 [facility] Comment on above: Performed By: #### P T #### [address] Platelet Morphology Normal Normal Normal [facility] Comment on above: Result Comment: PERF ORMED BY: [place] [address] PATHOLOGIST FIRE PROTECTION INSPECTOR DIANDRA LACY M.D. Performed By: #### P T #### [address] Platelets (Bld) [#/Vol] 203 10*3/uL Normal 150-450 [facility] Comment on above: Performed By: #### P T #### [address] Poikilocytosis Slight Normal [facility] Comment on above: Performed By: #### P T #### [address] RBC (Bld) [#/Vol] 3.85 10*6/uL Low 3.90-5.60 [facility] Comment on above: Performed By: #### P T #### [address] Segmented neutrophils/100 WBC (Bld) 94 % High 50-70 [facility] Comment on above: Performed By: #### P T #### [address] WBC (Bld) [#/Vol] 9.1 10*3/uL Normal 4.1-10.5 [facility] Comment on above: Performed By: #### P T #### [address] ECG 12 lead ECGon 08-11-2022 ECG 12 lead ECG [facility] [place] [address] [place] [address] Electrocardiograph Report Signed Patient: Victorino Smyth MR#: [id number] : 1940 Acct:[id number] Age/Sex: 82 / M ADM Date: 08/11/22 Loc: 4N Room: 6T1389-4 Type: ADM IN Attending Dr: Hiral Interiano [...] By Yogesh Cisneros DO 08/13 1820 Normal [facility] ECG 12 lead ECG [facility] [place] [address] Electrocardiograph Report Signed Patient: Victorino Smyth MR#: [id number] : 1940 Acct:[id number] Age/Sex: 82 / M ADM Date: 08/11/22 Loc: Room: 9Y5304-2 Type: ADM IN Attending Dr: Hiral Interiano [...] When compared with ECG of 28-JUN-2019 20:47, AR interval has increased Confirmed by YOGESH CISNEROS DO ([id number]) on 08/11/2022 6:42:37 PM Referred By: Electronically Signed By:YOGESH CISNEROS DO Transcribed By: MUS Signed By Yogesh Cinseros DO 08/11 1842 Normal [facility] ER URINE PROFILEon 3 Bilirubin Ql (U) Negative Normal NEGATIVE [facility] Comment on above: Performed By: #### T SH, LIPID, T4, FT3, CMP #### [facility] [address] [address] [address] Alicia Patel Clarity (U) CLEAR Normal CLEAR [facility] Comment on above: Performed By: #### T SH, LIPID, T4, FT3, CMP #### [facility] [address] [address] [address] Alicia Patel Color (U) LT. YELLOW Normal YELLOW [facility] Comment on above: Performed By: #### T SH, LIPID, T4, FT3, CMP #### [facility] [address] [place] [address] Dr. Alicia Patel ERUROLAND A micrscopic examina tion will be performed if indicated. Normal [facility] Comment on above: Performed By: #### T SH, LIPID, T4, FT3, CMP #### [facility] [address] [address] [address] Alicia Patel Glucose Ql (U) Negative Normal NEGATIVE [facility] Comment on above: Performed By: #### T SH, LIPID, T4, FT3, CMP #### [facility] [address] [place] [address] [address] Alicia Patel Hemoglobin Ql (U) SMALL Abnormal NEGATIVE [facility] Comment on above: Performed By: #### T SH, LIPID, T4, FT3, CMP #### [facility] [address] [place] [address] [address] Alicia Patel Ketones Ql (U) Negative Normal NEGATIVE [facility] Comment on above: Performed By: #### T SH, LIPID, T4, FT3, CMP #### [facility] [address] [place] [address] [address] Alicia Patel LEUKOCYTES Negative Normal NEGATIVE [facility] Comment on above: Performed By: #### T SH, LIPID, T4, FT3, CMP #### [facility] [address] [place] [address] [address] Alicia Patel Nitrite Ql (U) Negative Normal NEGATIVE [facility] Comment on above: Performed By: #### T SH, LIPID, T4, FT3, CMP #### [facility] [address] [place] [address] [address] Alicia Patel pH (U) 6.0 [pH] Normal 5-9 [facility] Comment on above: Performed By: #### T SH, LIPID, T4, FT3, CMP #### [facility] [address] [place] [address] Dr. Alicia Patel Protein (U) [Mass/Vol] 100 mg/dL Abnormal NEGAT ОЛЕГ/ TRACE [facility] Comment on above: Performed By: #### T SH, LIPID, T4, FT3, CMP #### [facility] [address] [place] [address] Dr. Alicia Patel SPEC GRAVITY 1.015 Normal 1.005-<=1. 025 [facility] Comment on above: Performed By: #### T SH, LIPID, T4, FT3, CMP #### [facility] [address] [place] [address] Dr. Alicia Patel UR MICRO IND INDICATED Normal [facility] Comment on above: Performed By: #### T SH, LIPID, T4, FT3, CMP #### [facility] [address] [place] [address] Dr. Alicia Patel Urobilinogen Qn (U) 0.2 {Wil'U}/dL Normal 0.2 - 1. 0 [facility] Comment on above: Performed By: #### T SH, LIPID, T4, FT3, CMP #### [facility] [address] [place] [address] Dr. Alicia Patel Glucose Poct Glucometerson 0 08-11-2022 Glucose [Mass/Vol] 282 mg/dL Normal [facility] Comment on above: Result Comment: [place] Glucose Reference Range is dependent on time and content of last meal. Glucose of more than 200 mg/dL in a nonstressed, ambulatory subject supports the diagnosis of Diabetes Mellitus. PERFORMED BY: [address] [place] [address] PATHOLOGIST FIRE PROTECTION INSPECTOR DIANDRA LACY M.D. Performed By: #### P T #### [address] Commemt1 Glu2: Cleaned Meter [facility] Comment on above: Result Comment: PERF ORMED BY: [address] [place] [place] [address] PATHOLOGIST FIRE PROTECTION INSPECTOR DIANDRA LACY M.D. Performed By: #### G LULS ####Point of Care testing, Glucose [Mass/Vol] 253 mg/dL Normal [facility] Comment on above: Result Comment: [place] om Glucose Reference Range is dependent on time and content of last meal. Glucose of more than 200 mg/dL in a nonstressed, ambulatory subject supports the diagnosis of Diabetes Mellitus. Performed By: #### G LULS ####Point of Care testing, Commemt1 Glu2: Cleaned Meter [facility] Comment on above: Result Comment: PERF ORMED BY: [place] [address] PATHOLOGIST FIRE PROTECTION INSPECTOR DIANDRA LACY M.D. Performed By: #### P T #### [address] Glucose [Mass/Vol] 304 mg/dL Normal [facility] Comment on above: Result Comment: [place] om Glucose Reference Range is dependent on time and content of last meal. Glucose of more than 200 mg/dL in a nonstressed, ambulatory subject supports the diagnosis of Diabetes Mellitus. Performed By: #### P T #### [facility] [address] [place] [address] Commemt1 [facility] Comment on above: Result Comment: Glu2 : Result Not Confirmed PERFORMED BY: [place] [address] PATHOLOGIST FIRE PROTECTION INSPECTOR DIANDRA LACY M.D. Performed By: #### B MP #### [address] [address] [place] Glucose [Mass/Vol] 440 mg/dL Off scale high [facility] Comment on above: Result Comment: [facility] Glucose Reference Range is dependent on time and content of last meal. Glucose of more than 200 mg/dL in a nonstressed, ambulatory subject supports the diagnosis of Diabetes Mellitus. Performed By: #### B MP #### [facility] [address] [place] [address] Hepatitis Acute Panelon 07-28 HBsAg Screen Negative Normal Negative [facility] Comment on above: Order Comment: DRAW ALL LABS WITH TROP AT 1647 Performed By: #### H EPACUTE #### [facility] , Hepatitis A Antibody IgM Negative Normal Negative [facility] Comment on above: Order Comment: DRAW ALL LABS WITH TROP AT 1647 Performed By: #### H EPACUTE #### [facility] , Hepatitis B Core Antibody IgM Negative Normal Negative [facility] Comment on above: Order Comment: DRAW ALL LABS WITH TROP AT 1647 Performed By: #### H EPACUTE #### [facility] , Hepatitis C Virus Antibody Non-Reactive Normal Non Reactive [facility] Comment on above: Order Comment: DRAW ALL LABS WITH TROP AT 1647 Performed By: #### H EPACUTE #### [facility] , Interpretation Hepatitis C Normal . [facility] Comment on above: Order Comment: DRAW ALL LABS WITH TROP AT 1647 Result Comment: Not infected with HCV unless early or acute infection is suspected (which may be delayed in an immunocompromised individual), or other evidence exists to indicate HCV infection. Performed at: - [facility] [address] [id number] Comprehensive Advisor: Lee Bob PhD, Phone: [phone] PERFORMED BY: [place] [address] PATHOLOGIST FIRE PROTECTION INSPECTOR DIANDRA LACY M.D. Performed By: #### H EPACUTE #### [facility] , Hepatitis B virus surface Ag [Presence] in Serum or Plasma by ImmunoassayOrdered By: Alicia Perea on 08-11-2022 HBV surface Ag IA Ql Negative Negative [facility] Hepatitis C virus IgG Ab [Pr esence] in Serum or Plasma by ImmunoassayOrdered By: Alicia Perea on 08-11-2022 HCV IgG IA Ql Non-Reactive Non Reactive [facility] Hepatitis C virus RNA [Units /volume] (viral load) in Serum or Plasma by SAAVNNAH with probOrdered By: Alicia Perea on 08-11-2022 HCV RNA SAVANNAH+probe Qn N/A [facility] Hepatitis C virus RNA [log u nits/volume] (viral load) in Serum or Plasma by SAVANNAH withOrdered By: Alicia Perea on 08-11-2022 HCV RNA SAVANNAH+probe [Log units/Vol] N/A [facility] - CoagulationOrde red By: Hiral Interiano on 08-11-2022 PT Coag (PPP) [Time] 12.2 s 9.0-12.9 [facility] Lymphocytes/100 WBC Manual c nt (Bld)Ordered By: Hiral Interiano on 08-11-2022 Lymphocytes/100 WBC (Bld) 5 % 18-42 [facility] Microcytes LM Ql (Bld)Ordere d By: Hiral Interiano on 08-11-2022 Microcytes Ql (Bld) Slight [facility] Monocytes/100 WBC Manual cnt (Bld)Ordered By: Hiral Interiano on 08-11-2022 Monocytes/100 WBC (Bld) 1 % 2-11 [facility] No Panel InformationOrdered By: Alicia Perea on 08-11-2022 Hepatitis A IgM Antibody Negative Negative [facility] Hepatitis B Core IgM Antibody Negative Negative [facility] Hepatitis C Interpretation See comment . [facility] Comment on above: Not infected with HC V unless early or acute infection issuspected (which may be delayed in an immunocompromisedindividual), or other evidence exists to indicate HCVinfection.Performed at: - [facility] [id number] Director: Lee Bob PhD, Phone: [phone] Hepatitis C RNA Quantitative N/A [facility] POINT OF CARE GLUCOSEon 07-28 Glucose [Mass/Vol] 132 mg/dL Critically high 74-106 [facility] Comment on above: Performed By: #### T SH, LIPID, T4, FT3, CMP #### [facility] [address] [address] [address] Alicia Patel Glucose [Mass/Vol] 117 mg/dL Critically high 74-106 [facility] Comment on above: Performed By: #### T SH, LIPID, T4, FT3, CMP #### [facility] [address] [place] [address] [address] Alicia Patel Glucose [Mass/Vol] 95 mg/dL Normal 74-106 [facility] Comment on above: Performed By: #### P OCGLUC #### [facility] [address] [place] [address] Dr. Alicia Patel PROF CHEM 8 (BAS METB)on Creatinine [Mass/Vol] 17.89 mg/dL High 0.64-1.27 [facility] Comment on above: Performed By: #### T SH, LIPID, T4, FT3, CMP #### [facility] [address] [place] [address] Dr. Alicia Patel Performed By: #### B MP #### [facility] [address] Anion gap [Moles/Vol] 29.5 mmol/L Normal [facility] Comment on above: Performed By: #### T SH, LIPID, T4, FT3, CMP #### [facility] [address] [place] [address] [address] Alicia Patel Calcium [Mass/Vol] 7.7 mg/dL Critically low 8.5-10.1 [facility] Comment on above: Performed By: #### T SH, LIPID, T4, FT3, CMP #### [facility] [address] [place] [address] Dr. Alicia Patel Chloride [Moles/Vol] 102 mmol/L Normal 98-107 [facility] Comment on above: Performed By: #### T SH, LIPID, T4, FT3, CMP #### [facility] [address] [place] [address] Dr. Alicia Patel CO2 [Moles/Vol] 13.5 mmol/L Critically low 21.0-32.0 [facility] Comment on above: Performed By: #### T SH, LIPID, T4, FT3, CMP #### [facility] [address] [place] [address] Dr. Alicia Patel EGFR-AF TAJIK 3 mL/min/1.73m2 Critically low >=60 [facility] Comment on above: Performed By: #### T SH, LIPID, T4, FT3, CMP #### [facility] [address] [place] [address] Dr. Alicia Patel EGFR-NON AF TAJIK 3 mL/min/1.73m2 Critically low >=60 [facility] Comment on above: Performed By: #### T SH, LIPID, T4, FT3, CMP #### [facility] [address] [place] [address] Dr. Alicia Patel Glucose [Mass/Vol] 105 mg/dL Normal 74-106 [facility] Comment on above: Performed By: #### T SH, LIPID, T4, FT3, CMP #### [facility] [address] [place] [address] Dr. Alicia Patel Potassium [Moles/Vol] 7.0 mmol/L Critically high 3.5-5.1 [facility] Comment on above: Performed By: #### T SH, LIPID, T4, FT3, CMP #### [facility] [address] [place] [address] Dr. Alicia Patel Sodium [Moles/Vol] 138 mmol/L Normal 136-145 [facility] Comment on above: Performed By: #### T SH, LIPID, T4, FT3, CMP #### [facility] [address] [place] [address] Dr. Alicia Patel Urea nitrogen [Mass/Vol] 156.0 mg/dL Critically high 7.0-18.0 [facility] Comment on above: Performed By: #### T SH, LIPID, T4, FT3, CMP #### [facility] [address] [place], [place] [address] Dr. Alicia Patel Urea nitrogen/Creatinine [Mass ratio] 8.7 mg/mg Normal [facility] Comment on above: Performed By: #### T SH, LIPID, T4, FT3, CMP #### [facility] [address] [place], [place] [address] Dr. Alicia Patel Platelet adequacy [Presence] in Blood by Light microscopyOrdered By: Hiral Interiano on 08-11-2022 Platelets LM Ql (Bld) Normal Normal [facility] Platelet morphology finding [Identifier] in BloodOrdered By: Hiral Interiano on 08-11-2022 Platelet morphology finding Nom (Bld) Normal Normal [facility] Platelet poor plasma interna tional normalized ratio (INR) by coagulation assay (relatOrdered By: Hiral Interiano on 08-11-2022 INR Coag (PPP) [Relative time] 1.0 {INR} [facility] Comment on above: INR Therapeutic [...] on 08-11-2022 Poikilocytosis LM Ql (Bld) Slight [facility] Prothrombin Time INRon 08-11 INR Coag (PPP) [Relative time] 1.0 {INR} Normal [facility] Comment on above: Result Comment: [...] 3 - 4.5 PERFORMED BY: [place] [address] PATHOLOGIST FIRE PROTECTION INSPECTOR DIANDRA LACY M.D. Performed By: #### P T #### [address] PT Coag (PPP) [Time] 12.2 s Normal 9.0-12.9 [facility] Comment on above: Performed By: #### P T #### [address] RBC morphologyOrdered By: Donal Interiano on 08-11-2022 RBC morphology finding Nom (Bld) N/A [facility] Segmented neutrophils/100 WB C Manual cnt (Bld)Ordered By: Hiral Interiano on 08-11-2022 Segmented neutrophils/100 WBC (Bld) 94 % 50-70 [facility] Troponin I High Sensitivityo n 08-11-2022 Troponin I High Sensitivity 42 pg/mL High 0-20 [facility] Comment on above: Result Comment: PERF ORMED BY: [place] [address] PATHOLOGIST FIRE PROTECTION INSPECTOR DIANDRA LACY M.D. Performed By: #### H S TROP ####[address] Troponin I High Sensitivity 16 pg/mL Normal 0-20 [facility] Comment on above: Result Comment: PERF ORMED BY: [place] [address] PATHOLOGIST FIRE PROTECTION INSPECTOR DIANDRA LACY M.D. Performed By: #### P T #### [facility] [address] [place] [address] Troponin I.cardiac [Mass/vol ume] in Serum or Plasma by High sensitivity methodOrdered By: Hiral Interiano on 08-11-2022 Troponin I.cardiac High sensitivity method [Mass/Vol] 42 pg/mL 0-20 [facility] URINE MICROSCOPIC ONLYon BACTERIA TRACE Abnormal NONE SEEN [facility] Comment on above: Performed By: #### T SH, LIPID, T4, FT3, CMP #### [facility] [address] [place] [address] [address] Alicia Patel Bacteria identified Cx Nom (U) NOT INDICATED Normal [facility] Comment on above: Performed By: #### T SH, LIPID, T4, FT3, CMP #### [facility] [address] [place] [address] [address] Alicia Patel CAST NONE SEEN Normal NONE SEEN [facility] Comment on above: Performed By: #### T SH, LIPID, T4, FT3, CMP #### [facility] [address] [place] [address] [address] Alicia Patel Crystals LM Nom (Urine sed) NONE SEEN Normal NONE SEEN [facility] Comment on above: Performed By: #### T SH, LIPID, T4, FT3, CMP #### [facility] [address] [place] [address] [address] Alicia Patel Epithelial cells LM Ql (Urine sed) RARE Normal NONE SEEN /RARE [facility] Comment on above: Performed By: #### T SH, LIPID, T4, FT3, CMP #### [facility] [address] [place] [address] [address] Alicia Patel MUCOUS NONE SEEN Normal NONE SEEN [facility] Comment on above: Performed By: #### T SH, LIPID, T4, FT3, CMP #### [facility] [address] [address] [address] Alicia Patel RBC 2-5 Abnormal 0-2 [facility] Comment on above: Performed By: #### T SH, LIPID, T4, FT3, CMP #### [facility] [address] [place] [address] [address] Alicia Patel WBC 2-5 Abnormal NONE SEEN [facility] Comment on above: Performed By: #### T SH, LIPID, T4, FT3, CMP #### [facility] [address] [place] [address] Dr. Alicia Patel XR CHEST 1 Von [...] by: YOGESH BYERS Date: 2022-08-11 04:27 Normal [facility] XR chest 1V portableon 08-11 XR chest 1V portable [facility] [place] [address] [place] [address] XRay Report Signed Patient: Victorino Smyth MR#: [id number] : 1940 Acct:[id number] Age/Sex: 82 / M ADM Date: 08/11/22 Loc: Room: [address] [place] [address] Type: ADM IN Attending Dr: Hiral Interiano [...] Rehan Fuentes M.D.08/11/2022 4:10 PM Dictation Location: [place] [address] Transcribed By: [facility] 08/11/22 1610 Dictated By: Rehan Fuentes DO 08/11/22 1602 Signed By: 08/11/22 1610 [facility] Covid-19 PCR (CVDTBH)on SARS-CoV-2 (COVID-19) RNA SAVANNAH+probe Ql (Unsp spec) Not detected Normal NOT DETECTED [facility] Comment on above: Result Comment: This test is not yet approved or cleared by the [place] FDA. When there are no FDA-approved or cleared tests available, and other criteria are met, FDA can make tests available under an emergency access mechanism called an Emergency Use Authorization (EUA). The EUA for this test is supported by the Tip Scourer of Health and Human Service's (HHS's) declaration [...] T SH, LIPID, T4, FT3, CMP #### [facility] [address] [place] [address] Dr. Alicia Patel INFLUENZA A AND B AGon 08-02 [facility] SEE BELOW Normal [facility] Comment on above: Result Comment: Nega tive for Flu A protein angiten. Infection due to Flu A cannot be ruled out. Flu A angiten in the sample may be below the detection limit of the test. Performed By: #### T SH, LIPID, T4, FT3, CMP #### [facility] [address] [place] [address] Dr. Alicia Patel [facility] SEE BELOW Normal [facility] Comment on above: Result Comment: Nega tive for Flu B protein antigen. Infection due to Flu B cannot be ruled out. Flu B antigen in the sample may be below the detection limit of the test. Performed By: #### T SH, LIPID, T4, FT3, CMP #### [facility] [address] [place] [address] Dr. Alicia Patel INFLUENZA A AG Negative Normal NEGATIVE SEE COMMENT [facility] Comment on above: Performed By: #### T SH, LIPID, T4, FT3, CMP #### [facility] [address] [place] [address] Dr. Alicia Patel INFLUENZA B AG Negative Normal NEGATIVE SEE COMMENT [facility] Comment on above: Performed By: #### T SH, LIPID, T4, FT3, CMP #### [facility] [address] [place] [address] Dr. Alicia Patel PTH INTACTon 05-25-2022 PTH, Intact 47 pg/mL Normal 15-65 [facility] Comment on above: Performed By: #### T SH, LIPID, T4, FT3, CMP #### [facility] [address] [place] [address] Dr. Alicia Patel ALBUMINon 05-24-2022 Albumin [Mass/Vol] 3.9 g/dL Normal 3.4-5.0 [facility] Comment on above: Performed By: #### T SH, LIPID, T4, FT3, CMP #### [facility] [address] [place] [address] Dr. Alicia Patel HEMOGRAM AND PLATELon 2021 Hematocrit (Bld) [Volume fraction] 42.1 % Normal 42.0-54.0 [facility] Comment on above: Performed By: #### T SH, LIPID, T4, FT3, CMP #### [facility] [address] [place] [address] Dr. Alicia Patel Hemoglobin (Bld) [Mass/Vol] 14.7 g/dL Normal 14.0-18.0 [facility] Comment on above: Performed By: #### T SH, LIPID, T4, FT3, CMP #### [facility] [address] [place] [address] Dr. Alicia Patel MCH (RBC) [Entitic mass] 33.2 pg Normal 25.9-34.0 [facility] Comment on above: Performed By: #### T SH, LIPID, T4, FT3, CMP #### [facility] [address] [place] [address] Dr. Alicia Patel MCHC (RBC) [Mass/Vol] 34.9 g/dL Normal 29.9-35.2 [facility] Comment on above: Performed By: #### T SH, LIPID, T4, FT3, CMP #### [facility] [address] [place] [address] Dr. Alicia Patel MCV (RBC) [Entitic vol] 95.0 fL Critically high 80.0-94.0 [facility] Comment on above: Performed By: #### T SH, LIPID, T4, FT3, CMP #### [facility] [address] [place] [address] Dr. Alicia Patel PLT 190 103/ul Normal 150-450 [facility] Comment on above: Performed By: #### T SH, LIPID, T4, FT3, CMP #### [facility] [address] [place] [address] Dr. Alicia Patel RBC 4.43 106/ul Critically low 4.70-6.10 [facility] Comment on above: Performed By: #### T SH, LIPID, T4, FT3, CMP #### [facility] [address] [place] [address] Dr. Alicia Patel WBC 7.0 103/ul Normal 4.0-11.0 [facility] Comment on above: Performed By: #### T SH, LIPID, T4, FT3, CMP #### [facility] [address] [place] [address] Dr. Alicia Patel MAGNESIUMon 05-24-2022 Magnesium [Mass/Vol] 1.7 mg/dL Critically low 1.8-2.4 [facility] Comment on above: Performed By: #### T SH, LIPID, T4, FT3, CMP #### [facility] [address] [place] [address] Dr. Alicia Patel PHOSPHORUSon 05-24-2022 Phosphate [Mass/Vol] 3.7 mg/dL Normal 2.6-4.7 [facility] Comment on above: Performed By: #### T SH, LIPID, T4, FT3, CMP #### [facility] [address] [place] [address] Dr. Alicia Patel PROF CHEM 8 (BAS METB)on Anion gap [Moles/Vol] 11.2 mmol/L Normal [facility] Comment on above: Performed By: #### U RTPCR #### [facility] [address] [address] [address] Alicia Patel Calcium [Mass/Vol] 9.1 mg/dL Normal 8.5-10.1 [facility] Comment on above: Performed By: #### U RTPCR #### [facility] [address] [address] [address] Alicia Patel Chloride [Moles/Vol] 104 mmol/L Normal 98-107 [facility] Comment on above: Performed By: #### U RTPCR #### [facility] [address] [address] [address] Alicia Patel CO2 [Moles/Vol] 29.2 mmol/L Normal 21.0-32.0 [facility] Comment on above: Performed By: #### U RTPCR #### [facility] [address] [address] [address] Alicia Patel Creatinine [Mass/Vol] 1.40 mg/dL Critically high 0.70-1.30 [facility] Comment on above: Performed By: #### U RTPCR #### [facility] [address] [address] [address] Alicia Patel EGFR-AF TAJIK 59 mL/min/1.73m2 Critically low >=60 [facility] Comment on above: Performed By: #### U RTPCR #### [facility] [address] [address] [address] Alicia Patel EGFR-NON AF TAJIK 49 mL/min/1.73m2 Critically low >=60 [facility] Comment on above: Performed By: #### U RTPCR #### [facility] [address] [address] [address] Alicia Patel Glucose [Mass/Vol] 148 mg/dL Critically high 74-106 [facility] Comment on above: Performed By: #### U RTPCR #### [facility] [address] [address] [address] Alicia Patel Potassium [Moles/Vol] 4.4 mmol/L Normal 3.5-5.1 [facility] Comment on above: Performed By: #### U RTPCR #### [facility] [address] [address] [address] Alicia Patel Sodium [Moles/Vol] 140 mmol/L Normal 136-145 [facility] Comment on above: Performed By: #### U RTPCR #### [facility] [address] [place] [address] Dr. Alicia Paetl Urea nitrogen [Mass/Vol] 16.0 mg/dL Normal 7.0-18.0 [facility] Comment on above: Performed By: #### U RTPCR #### [facility] [address] [place] [address] Dr. Alicia Patel Urea nitrogen/Creatinine [Mass ratio] 11.4 mg/mg Normal [facility] Comment on above: Performed By: #### U RTPCR #### [facility] [address] [place] [address] Dr. Alicia Patel UA RANDOM W/MICROSCOPICon BACTERIA NONE SEEN Normal NONE SEEN [facility] Comment on above: Performed By: #### T SH, LIPID, T4, FT3, CMP #### [facility] [address] [place] [address] Dr. Aliica Patel Bilirubin Ql (U) Negative Normal NEGATIVE [facility] Comment on above: Performed By: #### T SH, LIPID, T4, FT3, CMP #### [facility] [address] [place] [address] Dr. Alicia Patel CAST NONE SEEN Normal NONE SEEN [facility] Comment on above: Performed By: #### T SH, LIPID, T4, FT3, CMP #### [facility] [address] [place] [address] Dr. Alicia Patel Clarity (U) CLEAR Normal CLEAR [facility] Comment on above: Performed By: #### T SH, LIPID, T4, FT3, CMP #### [facility] [address] [address] [address] Alicia Patel Color (U) LT. YELLOW Normal YELLOW [facility] Comment on above: Performed By: #### T SH, LIPID, T4, FT3, CMP #### [facility] [address] [address] [address] Alicia Patel Crystals LM Nom (Urine sed) NONE SEEN Normal NONE SEEN [facility] Comment on above: Performed By: #### T SH, LIPID, T4, FT3, CMP #### [facility] [address] [address] [address] Alicia Patel Epithelial cells LM Ql (Urine sed) FEW Abnormal NONE SEEN /RARE [facility] Comment on above: Performed By: #### T SH, LIPID, T4, FT3, CMP #### [facility] [address] [place] [address] Dr. Alicia Patel Glucose Ql (U) Negative Normal NEGATIVE [facility] Comment on above: Performed By: #### T SH, LIPID, T4, FT3, CMP #### [facility] [address] [place] [address] Dr. Alicia Patel Hemoglobin Ql (U) Negative Normal NEGATIVE [facility] Comment on above: Performed By: #### T SH, LIPID, T4, FT3, CMP #### [facility] [address] [place] [address] Dr. Alicia Patel Ketones Ql (U) Negative Normal NEGATIVE [facility] Comment on above: Performed By: #### T SH, LIPID, T4, FT3, CMP #### [facility] [address] [place] [address] Dr. Alicia Patel LEUKOCYTES Negative Normal NEGATIVE [facility] Comment on above: Performed By: #### T SH, LIPID, T4, FT3, CMP #### [facility] [address] [address] [address] Alicia Patel MUCOUS NONE SEEN Normal NONE SEEN [facility] Comment on above: Performed By: #### T SH, LIPID, T4, FT3, CMP #### [facility] [address] [place] [address] Dr. Alicia Patel Nitrite Ql (U) Negative Normal NEGATIVE [facility] Comment on above: Performed By: #### T SH, LIPID, T4, FT3, CMP #### [facility] [address] [place] [address] Dr. Alicia Patel pH (U) 5.5 [pH] Normal 5-9 [facility] Comment on above: Performed By: #### T SH, LIPID, T4, FT3, CMP #### [facility] [address] [place] [address] Dr. Alicia Patel RBC NONE SEEN Abnormal 0-2 [facility] Comment on above: Performed By: #### T SH, LIPID, T4, FT3, CMP #### [facility] [address] [place] [address] Dr. Alicia Patel SPEC GRAVITY 1.020 Normal 1.005-<=1. 025 [facility] Comment on above: Performed By: #### T SH, LIPID, T4, FT3, CMP #### [facility] [address] [place] [address] Dr. Alicia Patel UA PROTEIN Negative Normal NEGATIVE/ TRACE [facility] Comment on above: Performed By: #### T SH, LIPID, T4, FT3, CMP #### [facility] [address] [place] [address] Dr. Alicia Patel Urobilinogen Qn (U) 0.2 {Wil'U}/dL Normal 0.2 - 1. 0 [facility] Comment on above: Performed By: #### T SH, LIPID, T4, FT3, CMP #### [facility] [address] [place] [address] Dr. Alicia Patel WBC NONE SEEN Normal NONE SEEN [facility] Comment on above: Performed By: #### T SH, LIPID, T4, FT3, CMP #### [facility] [address] [place] [address] Dr. Alicia Patel URIC ACID SERUMon 05-24-2022 Urate [Mass/Vol] 5.6 mg/dL Normal 3.5-7.2 [facility] Comment on above: Performed By: #### T SH, LIPID, T4, FT3, CMP #### [facility] [address] [address] [address] Alicia Patel URINE T PROTEIN CREAT RATIOo n 05-24-2022 Protein (U) [Mass/Vol] 26.0 mg/dL Critically high <=12.0 [facility] Comment on above: Performed By: #### T SH, LIPID, T4, FT3, CMP #### [facility] [address] [address] [address] Alicia Patel UR PROT CREAT RAT 0.34 Normal [facility] Comment on above: Performed By: #### T SH, LIPID, T4, FT3, CMP #### [facility] [address] [address] [address] Alicia Patel URINE CREAT 77.39 mg/dL Normal 20.00-300. 00 [facility] Comment on above: Performed By: #### T SH, LIPID, T4, FT3, CMP #### [facility] [address] [address] [address] Alicia Patel Vital Signs Date Time Vital Sign Value Performing Clinician Facility 06-14-2023 11:00-0500 Body height 175.26 cm Alicia Brit Other [facility] Other 06-14-2023 11:00-0500 Body mass index (BMI) [Ratio] 38.51 kg/m2 Alicia Brit Other [facility] Other 06-14-2023 11:00-0500 Body temperature 97.2 [degF] Alicia Brit Other [facility] Other 06-14-2023 11:00-0500 Body weight 118.3 kg Alicia Brit Other [facility] Other 06-14-2023 11:00-0500 Diastolic blood pressure 72 mm[Hg] Alicia Brit Other [facility] Other 06-14-2023 11:00-0500 Respiratory rate 18 /min Alicia Brit Other [facility] Other 06-14-2023 11:00-0500 SaO2% (BldA) [Mass fraction] 95 % Alicia Brit Other [facility] Other 06-14-2023 11:00-0500 Systolic blood pressure 122 mm[Hg] Alicia Brit Other [facility] Other 11-29-2022 10:20-0400 Body height 175.26 cm Alicia Brit Other [facility] Other 11-29-2022 10:20-0400 Body mass index (BMI) [Ratio] 36.77 kg/m2 Alicia Brit Other [facility] Other 11-29-2022 10:20-0400 Body temperature 96.3 [degF] Alicia Brit Other [facility] Other 11-29-2022 10:20-0400 Body weight 112.95 kg Alicia Brit Other [facility] Other 11-29-2022 10:20-0400 Diastolic blood pressure 72 mm[Hg] Alicia Brit Other [facility] Other 11-29-2022 10:20-0400 Respiratory rate 18 /min Alicia Brit Other [facility] Other 11-29-2022 10:20-0400 SaO2% (BldA) [Mass fraction] 96 % Alicia Brit Other [facility] [employer] Other 11-29-2022 10:20-0400 Systolic blood pressure 137 mm[Hg] Alicia Brit Other [facility] [employer] Other 10-07-2022 17:25-0400 Heart rate 66 /min Ni OLIVARES [facility] 10-07-2022 17:25-0400 SaO2% (BldA) [Mass fraction] 92 % Ni OLIVARES [facility] 10-07-2022 17:25-0400 Respiratory rate 16 /min Ni OLIVARES [facility] 10-07-2022 17:24-0400 Body temperature 97.7 [degF] Ni OL[facility]ARES [facility] 10-07-2022 17:24-0400 Diastolic blood pressure 74 mm[Hg] Ni OL[facility]ARES [facility] 10-07-2022 17:24-0400 Mean blood pressure 106 mm[Hg] Ni [facility]AR[facility] 10-07-2022 17:24-0400 Systolic blood pressure 170 mm[Hg] Ni [facility]ARES [facility] 10-07-2022 16:18-0400 Heart rate 61 /min Ni OLIVARES [facility] 10-07-2022 16:18-0400 SaO2% (BldA) [Mass fraction] 95 % Ni [facility] 10-07-2022 16:17-0400 Diastolic blood pressure 81 mm[Hg] Ni [employer] [facility] 10-07-2022 16:17-0400 Mean blood pressure 103 mm[Hg] Ni [facility] 10-07-2022 16:17-0400 Systolic blood pressure 148 mm[Hg] Ni [facility] 10-07-2022 16:17-0400 Respiratory rate 16 /min Ni [facility] 10-07-2022 16:11-0400 Diastolic blood pressure 75 mm[Hg] Ni [facility] 10-07-2022 16:11-0400 Heart rate 58 /min Ni [facility] 10-07-2022 16:11-0400 Mean blood pressure 98 mm[Hg] Ni [facility] 10-07-2022 16:11-0400 Respiratory rate 17 /min Ni [facility] 10-07-2022 16:11-0400 SaO2% (BldA) [Mass fraction] 97 % Ni [facility] 10-07-2022 16:11-0400 Systolic blood pressure 144 mm[Hg] Ni [facility] 10-07-2022 16:00-0400 Mean blood pressure 92 mm[Hg] Ni [facility] 10-07-2022 16:00-0400 Respiratory rate 13 /min Ni [facility] 10-07-2022 15:55-0400 Mean blood pressure 86 mm[Hg] Ni [facility]OOK [facility] 10-07-2022 15:55-0400 Respiratory rate 17 /min Ni [facility] 10-07-2022 15:46-0400 Body temperature 98.06 [degF] Ni OLIVARES [facility] 10-07-2022 15:40-0400 Respiratory rate 15 /min Ni OLIVARES [facility] 10-07-2022 10:14-0400 Mean blood pressure 97 mm[Hg] Ni OLIVARES [facility] 10-07-2022 10:14-0400 Blood Pressure Location Ni OLIVARES [facility] 10-07-2022 10:13-0400 Heart rate 64 /min Ni OLIVARES [facility] 10-07-2022 10:12-0400 Body temperature 98.06 [degF] Ni OLIVARES [facility] 10-07-2022 10:12-0400 Blood Pressure Location Ni OLIVARES [facility] 09-15-2022 14:40-0400 Body height 175.26 cm Alicia Brit Other [employer] [facility] [employer] Other 09-15-2022 14:40-0400 Body mass index (BMI) [Ratio] 37.48 kg/m2 Alicia Brit Other [facility] Other 09-15-2022 14:40-0400 Body weight 115.12 kg Alicia Brit Other [facility] Other 09-15-2022 14:40-0400 Diastolic blood pressure 73 mm[Hg] Alicia Brit Other [facility] Other 09-15-2022 14:40-0400 Respiratory rate 18 /min Alicia Brit Other [facility] [employer] Other 09-15-2022 14:40-0400 SaO2% (BldA) [Mass fraction] 97 % Alicia Brit Other [employer] [facility] [employer] Other 09-15-2022 14:40-0400 Systolic blood pressure 138 mm[Hg] Alicia Brit Other [facility] [employer] Other 09-06-2022 10:01-0400 Blood Pressure Location [facility] [employer] [facility] 09-06-2022 10:01-0400 Diastolic blood pressure 70 mm[Hg] [facility] [employer] [facility] 09-06-2022 10:01-0400 Heart rate 68 /min [facility] [employer] [facility] 09-06-2022 10:01-0400 Systolic blood pressure 132 mm[Hg] Ni [employer] [facility] 08-15-2022 12:16-0500 Body temperature 97.8 [degF] MD Tray Alfaro Work Phone: [facility] 08-15-2022 12:16-0500 Diastolic blood pressure 92 mm[Hg] MD Tray Alfaro Work Phone: [facility] 08-15-2022 12:16-0500 Heart rate 68 /min MD Tray Alfaro Work Phone: [facility] 08-15-2022 12:16-0500 Respiratory rate 18 /min MD Tray Alfaro Work Phone: [facility] 08-15-2022 12:16-0500 SaO2% (BldA) [Mass fraction] 95 % MD Tray Alfaro Work Phone: [facility] 08-15-2022 12:16-0500 Systolic blood pressure 146 mm[Hg] MD Tray Alfaro Work Phone: [facility] 08-15-2022 05:08-0500 Body weight 118.2 kg MD Tray Alfaro Work Phone: [facility] 08-13-2022 13:10-0500 Inhaled oxygen flow rate 8 L/min MD Tray Alfaro Work Phone: [facility] 08-13-2022 11:54-0500 Body height 177.8 cm MD Tray Alfaro Work Phone: [facility] 08-13-2022 11:54-0500 Body mass index (BMI) [Ratio] 37.3 kg/m2 MD Tray Alfaro Work Phone: [facility] 06-01-2022 11:40-0500 Body height 175.26 cm Alicia Brit Other [facility] Other 06-01-2022 11:40-0500 Body mass index (BMI) [Ratio] 37.77 kg/m2 Alicia Brit Other [facility] Other 06-01-2022 11:40-0500 Body temperature 97.5 [degF] Alicia Brit Other [facility] Other 06-01-2022 11:40-0500 Body weight 116.03 kg Alicia Brit Other [facility] Other 06-01-2022 11:40-0500 Diastolic blood pressure 71 mm[Hg] Alicia Brit Other [facility] Other 06-01-2022 11:40-0500 Respiratory rate 18 /min Alicia Brit Other [facility] Other 06-01-2022 11:40-0500 SaO2% (BldA) [Mass fraction] 93 % Alicia Brit Other [facility] Other 06-01-2022 11:40-0500 Systolic blood pressure 134 mm[Hg] Alicia Brit Other [facility] Other 11-24-2021 11:20-0400 Body height 175.26 cm Alicia Brit Other [facility] Other 11-24-2021 11:20-0400 Body mass index (BMI) [Ratio] 36.26 kg/m2 Alicia Brit Other [facility] Other 11-24-2021 11:20-0400 Body temperature 96.4 [degF] Alicia Brit Other [facility] Other 11-24-2021 11:20-0400 Body weight 111.4 kg Alicia Brit Other [facility] Other 11-24-2021 11:20-0400 Diastolic blood pressure 72 mm[Hg] Alicia Brit Other [facility] Other 11-24-2021 11:20-0400 Respiratory rate 18 /min Alicia Brit Other [facility] Other 11-24-2021 11:20-0400 SaO2% (BldA) [Mass fraction] 95 % Alicia Brit Other [facility] Other 11-24-2021 11:20-0400 Systolic blood pressure 139 mm[Hg] Alicia Brit Other [facility] Other 10-26-2021 09:17-0400 Blood Pressure Location [place] BRAUN [facility] 10-26-2021 09:17-0400 Diastolic blood pressure 69 mm[Hg] Milton BRAUN [facility] 10-26-2021 09:17-0400 Heart rate 64 /min Milton BRAUN [facility] 10-26-2021 09:17-0400 Respiratory rate 16 /min Milton BRAUN [facility] 10-26-2021 09:17-0400 Systolic blood pressure 139 mm[Hg] [place] BRAUN [facility] 05-26-2021 11:00-0500 Body height 175.26 cm Alicia Brit Other [facility] Other 05-26-2021 11:00-0500 Body mass index (BMI) [Ratio] 34.4 kg/m2 Alicia Brit Other [facility] Other 05-26-2021 11:00-0500 Body temperature 96.9 [degF] Alicia Brit Other [facility] Other 05-26-2021 11:00-0500 Body weight 105.69 kg Alicia Brit Other [facility] Other 05-26-2021 11:00-0500 Diastolic blood pressure 80 mm[Hg] Alicia Brit Other [facility] Other 05-26-2021 11:00-0500 Respiratory rate 18 /min Alicia Brit Other [facility] Other 05-26-2021 11:00-0500 SaO2% (BldA) [Mass fraction] 94 % Alicia Brit Other [facility] Other 05-26-2021 11:00-0500 Systolic blood pressure 136 mm[Hg] Alicia Brit Other [facility] Other Encounters Encounter Date Encounter Type Care Provider Facility Start: 06-12-2024 ambulatory Ni OLIVARES Facility :[facility] Start: 07-02-2023 End: 07-02-2023 ambulatory Tray Alfaro Facility:[facility] Start: 07-02-2023 End: 07-02-2023 ambulatory MD Tray Alfaro Work Phone: [facility] Work Phone: Start: 07-02-2023 End: 07-02-2023 Patient encounter procedure MD Tray Alfaro Work Phone: [facility] [place] Work Phone: Start: 06-28-2023 End: 06-28-2023 ambulatory Tray Alfaro Facility:[facility] Start: 06-28-2023 End: 06-28-2023 ambulatory MD Tray Alfaro Work Phone: [facility] Work Phone: Start: 06-28-2023 End: 06-28-2023 Patient encounter procedure MD Tray Alfaro Work Phone: [facility] [place] Work Phone: Start: 06-16-2023 End: 06-16-2023 ambulatory Ni Olivares Facility:[facility] Start: 06-16-2023 End: 06-16-2023 ambulatory MD Tray Alfaro Work Phone: [facility] Work Phone: Start: 06-16-2023 End: 06-16-2023 Patient encounter procedure MD Tray Alfaro Work Phone: [facility] [place] Work Phone: Start: 06-14-2023 Office outpatient vi sit 25 minutes Alicia Brit [facility] Start: 06-14-2023 End: 06-15-2023 ambulatory Ni OLIVARES [facility] [employer] Other Start: 06-14-2023 End: 06-14-2023 Patient encounter procedure Ni OLIVARES [facility] Start: 01-26-2023 End: 01-26-[address] [facility] Start: 12-20-2022 End: 12-21-2022 ambulatory Ni OLIVARES Facility:[facility] Start: 12-20-2022 End: 12-20-2022 Patient encounter procedure Ni OLIVARES [facility] Start: 12-02-2022 End: 12-02-2022 ambulatory Ni OLIVARES Facility:[facility] Start: 11-29-2022 End: 11-29-2022 ambulatory Alicia Brit Other [employer] Other Start: 11-29-2022 Office outpatient vi sit 25 minutes Alicia Brit [facility] Start: 11-18-2022 End: 11-19-2022 ambulatory MD ALICIA PEREA Facility:[facility] Start: 11-18-2022 End: 11-19-2022 ambulatory Ni OLIVARES Facility:[facility] Start: 11-17-2022 End: 11-17-2022 ambulatory [facility] Start: 11-17-2022 End: 11-17-2022 Encounter for preprocedural cardiovascular examination [facility] Start: 11-10-2022 End: 11-24-[address] TRAY ALFARO . Facility: Start: 11-08-2022 End: 11-08-[address] TRAY ALFARO . Facility:[facility] Start: 11-06-2022 End: 11-07-[address] TRAY ALFARO . Facility: Start: 10-29-2022 End: 10-30-2022 ambulatory Milton BRAUN Facility:[facility] Start: 10-29-2022 End: 10-29-2022 Patient encounter procedure Milton BRAUN [facility] Start: 10-26-2022 End: 10-27-2022 ambulatory IRIS BERNA Facility: Start: 10-22-2022 End: 10-23-[address] MILTON BRAUN . Facility: Start: 10-15-2022 End: 10-16-[address] TRAY ALFARO . Facility: Start: 10-14-2022 End: 10-15-2022 ambulatory IRIS CORONEL Facility: Start: 10-14-2022 End: 10-14-2022 ambulatory IRIS [facility] Start: 10-07-2022 End: 10-07-2022 ambulatory Ni OLIVARES Facility:[facility] Start: 10-07-2022 End: 10-07-2022 Admission to same day surgery center Ni OLIVARES [facility] Start: 09-15-2022 End: 09-15-2022 ambulatory Alicia Perea Other [employer] Other Start: 09-15-2022 Office outpatient vi sit 25 minutes Alicia Brit [facility] Start: 09-14-2022 End: 09-15-2022 ambulatory Ni OLIVARES Facility:[id number] Start: 09-13-2022 End: 09-14-2022 ambulatory ALICIA BRIT Facility:[facility] Start: 09-06-2022 End: 09-07-2022 ambulatory Ni OLIVARES Facility:[facility] Start: 09-06-2022 End: 09-06-2022 Patient encounter procedure Ni OLIVARES [facility] Start: 09-01-2022 End: 09-02-[address] NI OLIVARES Facility:[facility] Start: 08-31-2022 End: 08-31-2022 ambulatory Tray Alfaro Facility:[facility] Start: 08-24-2022 End: 08-25-[address] TRAY ALFARO . Facility:[facility] Start: 08-22-2022 End: 08-22-[address] TRAY ALFARO . Facility:[facility] Start: 08-21-2022 End: 08-22-[address] TRAY ALFARO . Facility:[facility] Start: 08-18-2022 End: 08-19-2022 ambulatory ALICIA BRIT Facility:[facility] Start: 08-16-2022 ambulatory Ni OLIVARES Facility:[facility] Start: 08-11-2022 ambulatory Facility:[facility] Start: 08-11-2022 Patient encounter status MD Iglesias Work Phone: [facility] Start: 08-11-2022 Encounter for preprocedural cardiovascular examination Hiral Interiano [facility] Start: 08-11-2022 End: 08-15-2022 Evaluation and management of inpatient Hiral Interiano Facility:[facility] Start: 08-11-2022 End: 08-15-2022 Encounter for preprocedural cardiovascular examination MD Tray Alfaro Work Phone: [facility] Start: 08-11-2022 End: 08-15-2022 Evaluation and management of inpatient MD Tray Alfaro Work Phone: [facility] Work Phone: Start: 08-11-2022 End: 08-14-2022 ambulatory THADDEUS DAUGHERTY Facility:[facility] Start: 08-02-2022 End: 08-02-[address] TRAY ALFARO . Facility:[facility] Start: 07-08-2022 End: 07-23-[address] TRAY ALFARO . Facility:[facility] Start: 06-01-2022 End: 06-01-2022 ambulatory Alicia Brit Other [employer] Other Start: 06-01-2022 Office outpatient vi sit 25 minutes Alicia Brit [facility] Start: 05-24-2022 End: 05-25-2022 ambulatory ALICIA BRIT Facility:[facility] Start: 02-03-2022 End: 02-04-[address] TRAY ALFARO . Facility:[facility] Start: 11-24-2021 End: 11-24-2021 ambulatory Alicia Brit Other [employer] Other Start: 11-24-2021 Office outpatient vi sit 25 minutes Alicia Brit [facility] Start: 10-26-2021 End: 10-26-2021 Patient encounter procedure Milton BRAUN [facility] Start: 05-26-2021 End: 05-26-2021 ambulatory Alicia Brit Other [employer] Other Start: 05-26-2021 Office outpatient vi sit [...] T SH, LIPID, T4, FT3, CMP #### [facility] [address] [address] [address] Alicia Patel Start: 10-07-2022 Extracorporeal shock wave lithotripsy of calculus of kidney Ni OLIVARES Start: 08-21-2022 PSA screening ALICIA QAD IR Comment on above: Performed By: #### P SAD #### [facility] [address] [address] [address] Alicia Patel Start: 08-13-2022 Cystoscopy MD Tray Alfaro Work Phone: Start: 08-11-2022 Plain chest X-ray MD Iglesias Work Phone: Start: 08-01-2019 Transurethral prostatectomy Milton BRAUN Start: 07-04-2019 Biopsy of prostate Rohan gerardo KADE Start: 06-27-2019 cystoscopy, bilatera l, ureteroscopy, laser lithotripsy Milton BRAUN ear surgery Milton BRAUN ear surgery Ni OLIVARES Plan of Treatment Date Care Activity Detail Author Start: 08-15-2022 [facility] Start: 08-14-2022 Microbial culture of sputum [facility] Start: 08-14-2022 Aerobic Culture Aerobic Culture [facility] Start: 08-14-2022 Investigation of tra nsfusion reaction Gram Stain [facility] Start: 08-11-2022 Hospital admission [facility] Start: 08-11-2022 Referral to sales and service associate [facility] Start: 08-11-2022 Referral to beam warper [facility] Start: 08-11-2022 Referral to urologist [facility] CT Chest WO contrast [facility] Patient referral [facility] Work Phone: Renal function 2000 panel - Serum or Plasma [facility] Immunizations Immunization Date Immunization Notes Care Provider Fa niranjanty 05-02-2023 pneumococcal 20-marco nt conjugate vaccine Ni OLIVARES [facility] 05-02-2023 tetanus toxoid, redu martha diphtheria toxoid, and acellular pertussis vaccine, adsorbed Ni OLIVARES [facility] 03-29-2022 SARS-CoV-2 (COVID-19 ) [id number] Ni OLIVARES [facility] 05-18-2021 SARS-CoV-2 (COVID-19 ) Ad26 vaccine, recombinant Ni OLIVARES [facility] 03-30-2021 influenza virus vaccine, unspecified formulation Ni OLIVARES [facility] 09-01-2020 SARS-CoV-2 (COVID-19 ) Ad26 vaccine, recombinant Ni OLIVARES [facility] 06-27-2020 SARS-CoV-2 (COVID-19 ) Ad26 vaccine, recombinant Milton BRAUN [facility] 04-18-2020 influenza virus vaccine, unspecified formulation Ni OLIVARES [facility] 02-05-2020 zoster vaccine recombinant Ni OLIVARES [facility] 12-06-2019 zoster vaccine recombinant Ni OLIVARES [facility] 04-04-2019 influenza virus vaccine, unspecified formulation Milton BRAUN [facility] 04-05-2017 influenza virus vaccine, unspecified formulation Ni OLIVARES [facility] 04-05-2017 pneumococcal conjuga te vaccine, 13 valent Ni OLIVARES [facility] 04-12-2016 influenza, unspecifi ed formulation Ni OLIVARES [facility] Payers Date Payer Category Payer Medicare [id number] 2022 Self-pay [id number] 1959 Private Health Insurance [id number] 2.16.840.1.310046.19 1959 Private Health Insurance [id number] 1940 Unknown [id number] 2.16.840.1.878403.3.579.2.356 1942 Unknown [id number] 2.16.840.1.632617.3.579.2.593 1942 Unknown [id number] 2.16.840.1.747948.3.579.2.593 1942 Unknown [id number] 2.16.840.1.027502.3.579.2.593 1942 Unknown [id number] 2.16.840.1.373793.3.579.2.593 1942 Unknown [id number] 2.16.840.1.694629.3.579.2.593 1942 Unknown [id number] 2.16.840.1.467803.3.579.2.593 1942 Unknown [id number] 2.16.840.1.552349.3.579.2.593 1942 Unknown [id number] 2.16.840.1.558060.3.579.2.593 1942 Unknown [id number] 2.16.840.1.889413.3.579.2.593 1942 Unknown [id number] 2.16.840.1.261655.3.579.2.593 1942 Unknown [id number] 2.16.840.1.978066.3.579.2.593 1942 Unknown [id number] 2.16.840.1.078196.3.579.2.593 1942 Unknown [id number] 2.16.840.1.634034.3.579.2.593 1942 Unknown [id number] 2.16.840.1.563881.3.579.2.593 1942 Unknown [id number] 2.16.840.1.907893.3.579.2.593 1942 Unknown [id number] 2.16.840.1.823418.3.579.2.593 1942 Unknown [id number] 2.16.840.1.888818.3.579.2.593 1942 Unknown [id number] 2.16.840.1.225850.3.579.2.593 1942 Unknown [id number] 2.16.840.1.826184.3.579.2.593 1942 Unknown [id number] 2.16.840.1.262256.3.579.2.727 1942 Unknown [id number] 2.16.840.1.161319.3.579.2.727 1942 Unknown [id number] 2.16.840.1.141197.3.579.2. 1942 Unknown [id number] 2.16.840.1.839958.3.579.2.72 1942 Unknown [id number] 2.16.840.1.901545.3.579.2. 1942 Unknown [id number] 2.16.840.1.872439.3.579.2. 1942 Unknown [id number] 2.16.840.1.414667.3.579.2. 1942 Unknown [id number] 2.16.840.1.080313.3.579.2 1942 Unknown [id number] 2.16.840.1.915888.3.579.2. 1942 Unknown [id number] 2.16.840.1.331086.3.579.2. 1942 Unknown [id number] 2.16.840.1.486019.3.579.2.727 Medicare [id number] 2.16.8 40.1.104991.19 Medicare [id number] 2.1 6.840.1.647229.19 Unknown [employer] BC/BS [id number] Unknown [id number] 2.16.840.1.802796.3.579.2.531 Unknown [id number] 2.16.840.1.556984.3.579.2.531 Unknown [id number] 2.16.840.1.861801.3.579.2.531 Unknown [id number] 2.16.840.1.277452.3.579.2.531 Unknown [id number] 2.16.840.1.810185.3.579.2.531 Social History Date Type Detail Facility Start: 08-18-2020 End: 08-13-2022 Tobacco smoking status Ex-smoker (finding) [facility] [employer] Other Comment on above: quit in 1978 Sex Assigned At Male [facility] [employer] Other Start: 1940 Sex Assigned At Male [facility] Tobacco smoking status Never [facility] Comment on above: quit in 1978 Medical Equipment Procedure Code Equipment Code Equipment Origin al Text Equipment Identifier Dates Cystoscopy, with ureteral calculus manipulation and stent placement Polymeric ureteral stent ()[id number] FDA Start: 06-15-2019 Cystoscopy, with ureteral calculus manipulation and stent placement Polymeric ureteral stent ()[id number] FDA Start: 06-15-2019 Cystoscopy, with ureteral calculus manipulation and stent placement Polymeric ureteral stent ()[id number] FDA Start: 08-13-2022 Biopsy, prostate, with US guidance Polymeric ureteral stent ()[id number] FDA Start: 07-04-2019 CYSTOSCOPY URETEROSCOPY Ni OLIVARES MD 12/02/22 Unknown Ureter R {[id number] FDA Start: 12-02-2022 Goals Date Patient Goal Desired Activity /State Functional Status Date Assessment Result Facility 12-20-2022 Functional Status N/A [facility] 09-06-2022 Functional Status N/A [facility] 08-15-2022 Functional status Patient at [facility] Work Phone: Mental Status Date Assessment Result Facility 08-15-2022 Cognitive function Cognitive Sta tus Patient at [facility] Work Phone: Clinical Notes 05-26-2021 to 06-14-2023 Note Date & Type Note Facility 06-14-2023 Evaluation note Encounter Date Diagnosis Assessment Notes May, 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 [employer] Other 12-19-2023 Hospital Discharge instructions Patient Education 06/14/2023 09:44:12 [...] include: ?8 oz (237 mL) of milk, vxzuyuf-fcgstkhegesp-ayacd milk, and calcium- fortifiedfruit juice. Calcium-fortified means [...] ?Spinach (cooked), rhubarb, beets, sweet potatoes, and Congolese chard. ?Peanuts. ?Potato chips, chadian fries, and baked potatoes with skin on. ?Nuts and nut products. ?Chocolate. If you regularly take a diuretic medicine, make sure to eat at least 1 or 2 servings of fruits or vegetables that are high in potassium each day. These include: ?Avocado. ?Banana. ?[place], prune, carrot, or tomato juice. ?Baked potato. [...] magnesium, fish oil, or vitamin B6. Take baly-pol-aabknvz and prescription medicines only as told by [...] Casseroles. Pizza. Lasagna. Frozen meals. Potato chips. Swiss fries. The items listed above may not [...] provider. Document Revised: 09/23/2022 Document Reviewed: 09/23/2022 [employer] Patient Education 2022 [employer]. Follow Up Care 02/04/2023 14:47:08 With:MARSHALL OLIVEROS, Ni Garcia, URL Address: [address] [place] [address] [place], [place] [id number]- When: Unknown [facility] [id number] NoteUT Cardiology [facility] Theresa Smyth is a 82 y.o. 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 Voiding [...] if you have a fever over 100 degrees.[facility] 12-20-2022 Hospital Discharge instructions Patient Education 12/20/2022 [...] degrees. Follow Up Care 12/07/2022 13:42:13 With:Ni MARSHALL Address: [facility] [address] [id number] [facility] (1) When:6 months Comments:Call for followup appointment. [...] those arrangements as well.Have a great day. [facility]06-05-2023 Evaluation note* Encounter Date Diagnosis Assessment Notes Treatment Notes Treatment Clinical Notes Nov, Diabetes mellitus wi th chronic kidney disease (ICD-10 - E11.22) He has wez-bnkihfu-dkje ndent type 2 diabetes and currently takes [...] and has normal B12 and folate level. [employer] Other [id number] NoteRCRI- 2???points Class III Risk 10.1???% 30-day risk of , MN, or cardiac arrest EKG at last visit [...] and prevent any major fluid shifts. [facility]UnBl[facility]05-24-2023 NoteCoronary artery disease is stable, angina much improved s/p increased imdur dose and adding ranexa. Continue GDMTUnBlanchard Valley Health System05-24-2023 NotePatient here for 1 mo follow up [...] pain. All other systems reviewed and are negative.[facility] 11-17-2022 NoteUTP CARDIOLOGY PROGRESS NOTE [...] Risk 10.1 % 30-day risk of , MN, or cardiac arrest EKG at last visit SR with 1st Degree AV block- no acute changes. From a cardiology perspective pt may proceed with planned urological procedure, he is a moderate risk for a low-moderate risk procedure. May hold ASA for 5-7 days prior (more content not included)...[facility] 11-17-2022 NoteHypertension is well controlled today 126/60 with increased norvasc and imdur doses Continue norvasc, lisinopril, imdur, Renal function being monitored by nephrologyUnBlanchard Valley Health [facility] 11-17-2022 NoteContinue statin- lipid level well controlledUnBlanchard Valley Health System05-24-2023 [id number]:127 [facility]04-20-2023 NoteContinue statinUnBlanchard Valley Health System04-20-2023 NoteIncrease imdur to 120 mg and start ranexa as per Dr Huynh's recommendationsUnBlanchard Valley Health System04-20-2023 Note Reviewed concerning symptoms and recent labs [...] pain, angina, shortness of breath or further concerns.[facility]04-20-2023 NoteUTP CARDIOLOGY PROGRESS NOTE HPI: Victorino Smyth is a 82 y.o. male here for Chest Pain, Coronary Artery Disease, and Hypertension Patient here c/o chest tightness/burning with exertion the past few months. Says it feels similar to 2017 when he had an MN. Has been becoming more intense lately. 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 Says it feels similar to 2017 when he had an MN. Has been becoming more intense lately. Says [...] pain. All other systems reviewed and are negative.[facility] 10-07-2022 Hospital Discharge instructions Patient [...] Follow these instructions at home: Medicines Take srcp-fnt-lswmlee and prescription medicines only as told by [...] 07/02/2008 Document Revised: 09/24/2019 Document Reviewed: 05/04/2017 [employer] Patient Education 2020 [employer] Follow Up Care 09/06/2022 10:38:13 With:Ni OLIVARES Address: [address] [place], [place] [id number] Business (1) When: Unknown Comments:We were able [...] prior to considering any other anesthesia procedures. [facility]04-13-2023 Evaluation + Plan noteExtracted from: Title:KALEN post op Author:Timothy Pittman MD Date:10/07/22 Plan Transfer/Discharge: Transfer/Discharge Discharge when meets criteria ( To home ). Extracted from: Title:KALEN GA Author:Timothy Pittman MD Date:10/07/22 Plan [place] Society of Anesthesiologists (ASA) physical status classification: Class III. Anesthetic Preoperative Plan: Anesthesia General. Future Appointments Appointment Date:10/29/2022 08:45:00 AM Scheduled Provider:Milton BRAUN MD Location:[facility] Appointment Type:URO Office Visit [facility]03-23-2023 Note [id number]:127[facility] 09-15-2022 Evaluation note* Encounter Date Diagnosis Assessment Notes Treatment Notes Treatment Clinical Notes Aug, Diabetes mellitus wi th chronic kidney disease (ICD-10 - E11.22) He has nqc-kalwpxv-fmgd ndent type 2 diabetes and currently takes [...] have advised him to adequately hydrate himself. [employer] Other 03-13-2023 Hospital Discharge instructions Patient Education 09/06/2022 10:27:16 Kidney Stones, Gcir-zs-Zkyh Kidney Stones Kidney stones are rock-like masses [...] Follow these instructions at home: Medicines Take umcn-vjs-axpknre and prescription medicines only as told by [...] 11/29/2008 Document Revised: 10/30/2019 Document Reviewed: 10/30/2019 [employer] Patient Education 2020 [employer] Follow Up Care 08/17/2022 09:18:37 With:MARSHALL OLIVEROS, Ni Garcia, URL Address: [address] [place], [place] [address]- When: Unknown [facility] [id number] Note [id number]:127[facility] 08-15-2022 Discharge summary Author Hiral Interiano [facility] August 15, 2022 1:50pm Note Date/Time August 15, 2022 1:50pm [facility] [address] [place] [address] Discharge Summary Signed Patient: Victorino Smyth MR#: [id number] : 1940 Acct:[id number] Age/Sex: 82 / M Adm Date: 3 Loc: 4N Room: 8E1850-[address]: Hiral Interiano MD Copies to: [...] history of nephrolithiasis. He initially presented to [facility] ER with complaint of hypoglycemia and was found to have severe renal failure along with metabolic acidosis and hyperkalemia. CT scan at [facility] showed atrophic left kidney with obstructing stone in the right ureteropelvic junction. Patient was transferred to [facility] for further intervention. On arrival [...] is also advised to follow-up with his sales and service associate in 4-week. CT scan at [facility] also showed 0.8 cm nodule on [...] Low-Cholesterol Additional Instructions: Follow-up with your Primary Vegetable Sorter in 4 weeks. Avoid NSAIDs for pain [...] office on Tuesday to schedule follow-up with Speech Language Pathology Assistant. ) Documented By: Hiral Interiano MD 08/15/22 [id number] Signed By: <Electronically signed by Hrial Interiano MD> 08/15/22 9172 [facility] Work Phone: 1(357) 750-235302-19-2023 Progress note Author Alicia Perea [facility] August 15, 2022 12:01pm Note Date/Time August 15, 2022 12:01pm [facility] [address] [place] [address] Nephrology Progress Note Signed Patient: Victorino Smyth MR#: [id number] : 1940 Acct:[id number] Age/Sex: 82 / M Adm Date: 3 Loc: Room: [address] [place] [address] Type: ADM IN Attending Dr: Hiral Interiano MD Copies to: ~ Date of Service: 08/15/2022 Subjective Subjective Narrative: This is a 82-year-old male with a medical history of coronary artery disease s/pPCI, nephrolithiasis, CKD, diabetes mellitus, hypertension, dyslipidemia was presented to the emergency room of [facility] for generalized weakness and low urine output. On evaluation emergency room patient was found to have a life- threatening hyperkalemia with serum potassium 7 mmol/L, acute kidney injurywith elevated serum creatinine 17.8 mg/dL, metabolic acidosis serum bicarbonate 13.5 mmol/L. He was given insulin D50 calcium gluconate in the [facility] emergency room. He had a CAT scan abdomen pelvis done which showed obstructive kidney stones in the right UPJ and total atrophy of the left kidney. Case was discussed with the on-call urologist Dr. Olivares and recommended patient needs to be n.p.o. for surgical intervention. He was transferred to [facility] for further care. Patient is history of CKD due to the longstanding DM, HTN and recurrent KELSEA with baseline serum creatinine 1.4 to 1.6 mg/dL. He follows in my office for his CKD care. [facility] labs done which showed persistent [...] visible mass Skin: No rashes or bruises PLAYGROUND EQUIPMENT ERECTOR: Awake,Alert, following simple command Musculoskeletal: No joint [...] 10 Mg Tablet) 10 mg PO DAILY [facility] Stop: 08/16/23 08:59 Aspirin (Aspirin 81 Mg Tablet.Dr) 81 mg PO DAILY [facility] Stop: 08/12/23 08:59 Last Admin: 08/15/22 09:45 Dose: 81 mg Atorvastatin Calcium (Atorvastatin 40 Mg Tablet) 40 mg PO HS [facility] Stop: 08/11/23 21:59 Last Admin: 08/14/22 21:08 Dose: 40 mg Dextrose (Dextrose 50% In Water 25 Gm/50 Ml Syringe) 0 gm IV-PUSH PRN PRN PRN Reason: Hypoglycemia Stop: 08/11/23 14:01 Doxycycline Hyclate (Doxycycline Hyclate 100 Mg Tablet) 100 mg PO BID [facility] Stop: 08/18/22 20:59 Last Admin: 08/15/22 09:45 [...] Unit/Ml Vial) 5,000 unit SUBCUT Q8HR [facility] Stop: 08/12/23 21:59 Last Admin: 08/15/22 05:09 [...] Ml Insuln.Pen) 0 units SUBCUT TID.WM.HS [facility]; Protocol Stop: 08/11/23 16:59 Last Admin: 08/15/22 09:46 Dose: 5 units Insulin Glargine (Insulin Glargine 300 Units/3 Ml Insuln.Pen) 5 units SUBCUT DAILY [facility] Stop: 08/13/23 08:59 Last Admin: 08/15/22 09:47 Dose: 5 units Melatonin (Melatonin 5 Mg Tablet) 5 mg PO QHS PRN PRN Reason: insomnia Stop: 08/14/23 21:59 Last Admin: 08/14/22 21:08 Dose: 5 mg Metoprolol Tartrate (Metoprolol Tartrate 50 Mg Tablet) 50 mg PO BID [facility] Stop: 08/11/23 20:59 Last Admin: 08/15/22 [...] signed by Alicia Perea MD> 08/15/22 [address] [facility] Work Phone: 1(907) 830-765602-19-2023 Progress note Author Cade Alvarez [facility] August 15, 2022 11:31am Note Date/Time August 15, 2022 11:31am [facility] [address] [place] [address] Cardiology Progress Note Signed Patient: Victorino Smyth MR#: [id number] : 1940 Acct:[id number] Age/Sex: 82 / M Adm Date: 3 Loc: 4N Room: [address] [place] [address] Type: ADM IN Attending Dr: Hiral Interiano [...] patient has cardiology follow-up with his primary sales and service associate in [place] within 4 weeks of discharge. (2) CAD (coronary artery disease): Code(s): I25.10 - Atherosclerotic heart disease of [place] coronary artery without angina pectoris Status: Acute [...] signed by Cade Alvarez MD> 08/15/22 1131 [facility] Work Phone: 1([phone]) 206-349002-18-2023 Progress note Author Hiral Interiano [facility] August 14, 2022 2:57pm Note Date/Time August 14, 2022 2:49pm [facility] [address] [place] [address] Hospitalist Progress Note Signed Patient: Victorino Smyth MR#: [id number] : 1940 Acct:[id number] Age/Sex: 82 / M Adm Date: 3 Loc: N Room: [address] [place] [address] Type: ADM IN Attending Dr: Hiral Interiano [...] 08/12/22 09:00 08/14/22 08:22 Aspirin 81 Mg Tablet. PO 08/12/23 08:59 [...] SUBCUT 08/12/23 21:59 Not Given Q8HR [facility] Hydralazine HCl 10 mg 08/11/22 13:41 [...] Ml Insuln.Pen SUBCUT 08/11/23 16:59 Not Given TID.[facility] Protocol Insulin Glargine 5 units 08/13/22 09:00 08/14/22 11:59 Insulin Glargine 300 Units/3 Ml Insuln.Pen SUBCUT 08/13/23 08:59 5 units DAILY [facility] Administration Metoprolol Tartrate 50 mg 08/11/22 21:00 [...] days. Documented By: Hiral Interiano MD 08/14/22 8565 Signed By: <Electronically signed by Hiral Interiano MD> 08/14/22 1457 [facility] Work Phone: [phone] 784-977802-18-2023 Progress note Author Alicia Perea [facility] August 14, 2022 11:55am Note Date/Time August 14, 2022 11:55am [facility] [address] [place] [address] Nephrology Progress Note Signed Patient: Victorino Smyth MR#: [id number] : 1940 Acct:[id number] Age/Sex: 82 / M Adm Date: 3 Loc: Room: [address] [place] [address] Type: ADM IN Attending Dr: Hiral Interiano MD Copies to: ~ Date of Service: 08/14/2022 Subjective Subjective Narrative: This is a 82-year-old male with a medical history of coronary artery disease s/pPCI, nephrolithiasis, CKD, diabetes mellitus, hypertension, dyslipidemia was presented to the emergency room of [facility] for generalized weakness and low urine output. On evaluation emergency room patient was found to have a life- threatening hyperkalemia with serum potassium 7 mmol/L, acute kidney injurywith elevated serum creatinine 17.8 mg/dL, metabolic acidosis serum bicarbonate 13.5 mmol/L. He was given insulin D50 calcium gluconate in the [place] emergency room. He had a CAT scan abdomen pelvis done which showed obstructive kidney stones in the right UPJ and total atrophy of the left kidney. Case was discussed with the on-call urologist Dr. Olivares and recommended patient needs to be n.p.o. for surgical intervention. He was transferred to [facility] for further care. Patient is history of CKD due to the longstanding DM, HTN and recurrent KELSEA with baseline serum creatinine 1.4 to 1.6 mg/dL. He follows in my office for his CKD care. Patient after arrival at the [facility] hada repeat labs done which showed persistent [...] visible mass Skin: No rashes or bruises PLAYGROUND EQUIPMENT ERECTOR: Awake,Alert, following simple command Musculoskeletal: No joint [...] Mg Tablet) 100 mg PO BID [facility] Stop: 08/18/22 20:59 Last Admin: 08/14/22 [...] Unit/Ml Vial) 5,000 unit SUBCUT Q8HR [facility] Stop: 08/12/23 21:59 Last Admin: 08/14/22 06:05 Dose: Not Given Hydralazine HCl (Hydralazine 20 Mg/Ml Vial) 10 mg IV-PUSH Q4H PRN PRN Reason: Hypertension Stop: 08/11/23 13:40 Last Admin: 08/14/22 05:44 Dose: 10 mg Ceftriaxone Sodium (Rocephin) 1 gm in 50 mls @ 100 mls/hr IV Q24H [facility] Stop: 08/14/22 14:14 Last Admin: 08/13/22 15:07 Dose: 100 mls/hr Sodium Chloride (0.9% Sodium Chloride 1,000 Ml) 1,000 mls @ 0 mls/hr MISCELLANE.Q0M PRN PRN Reason: Dialysis Stop: 08/11/23 14:19 Last Infusion: 08/12/22 12:38 Dose: Infused Insulin Aspart (Insulin Aspart 300 Units/3 Ml Insuln.Pen) 0 units SUBCUT TID..[facility]; Protocol Stop: 08/11/23 16:59 Last Admin: 08/14/22 11:50 Dose: Not Given Insulin Glargine (Insulin [...] Perez Jr., D.OManohar08/13/2022 2:25 PM Dictation Location: [place] [address] Any impression(s) listed above is documentation that was entered by the reading physician into a diagnostic report(s) for Victorino Adams Smyth. I have reviewed the report(s) and [...] output Documented By: Alicia Perea MD 08/14/22 1152 Signed By: <Electronically signed by Alicia Perea MD> 08/14/[address] [facility] Work Phone: [phone]) [phone] Progress note Author Cade Alvarez [facility] August 14, 2022 11:21am Note Date/Time August 14, 2022 11:21am [facility] [address] [place], [place] [address] Cardiology Progress Note Signed Patient: Victorino Smyth MR#: [id number] : 1940 Acct:[id number] Age/Sex: 82 / M Adm Date: 3 Loc: 4N Room: [address] [place] [address] Type: ADM IN Attending Dr: Hiral Interiano [...] % (Auto) 79.6 Lymph % (Auto) 7.8 [place] % (Auto) 11.4 Eos % (Auto) 1.0 Baso % (Auto) 0.2 Nucleat RBC Rel Count 0.1 Neut # (Auto) 5.9 Lymph # (Auto) 0.6 L [place] # (Auto) 0.8 Eos # (Auto) 0.1 [...] MPV Neut % (Auto) Lymph % (Auto) [place] % (Auto) Eos % (Auto) Baso % (Auto) Nucleat RBC Rel Count Neut # (Auto) Lymph # (Auto) [place] # (Auto) Eos # (Auto) Baso # [...] make sure that he has follow-up in [facility] within 4 weeks of discharge. (2) CAD (coronary artery disease): Assessment/Problem Details: Stable/quiescent. No ischemic complications with yesterday's urological procedure. Code(s): I25.10 - Atherosclerotic heart disease of [place] coronary artery without angina pectoris Status: Acute Plan: Medical recommendations as above. Plan Thank you very much for this kind consultation and for allowing us to participate in the care of this very pleasant patient Time spent with patient Time Spent With Patient (min): 30 Documented By: Cade Alvarez MD 08/14/22 1118 Signed By: <Electronically signed by Cade Alvarez MD> 08/14/22 1121 [facility] Work Phone: [phone] Progress note Author Hiral Interiano [facility] August 13, 2022 3:09pm Note Date/Time August 13, 2022 3:02pm [facility] [address] [place] [address] Hospitalist Progress Note Signed Patient: Victorino Smyth MR#: [id number] : 1940 Acct:[id number] Age/Sex: 82 / M Adm Date: 3 Loc: 4N Room: 2R4000-0 Type: ADM IN Attending Dr: Hiral Interiano [...] <Electronically signed by Hiral Interiano MD> 08/13/22 1507 [facility] Work Phone: [phone] 870-682202-17-2023 Progress note Author Alicia Perea [facility] August 13, 2022 11:29am Note Date/Time August 13, 2022 11:25am [facility] [address] [place] [address] Nephrology Progress Note Signed Patient: Victorino Smyth MR#: [id number] : 1940 Acct:[id number] Age/Sex: 82 / M Adm Date: 3 Loc: Room: [address] [place] [address] Type: ADM IN Attending Dr: Hiral Interiano MD Copies to: ~ Date of Service: 08/13/2022 Subjective Subjective Narrative: This is a 82-year-old male with a medical history of coronary artery disease s/pPCI, nephrolithiasis, CKD, diabetes mellitus, hypertension, dyslipidemia was presented to the emergency room of [facility] for generalized weakness and low urine output. On evaluation emergency room patient was found to have a life- threatening hyperkalemia with serum potassium 7 mmol/L, acute kidney injurywith elevated serum creatinine 17.8 mg/dL, metabolic acidosis serum bicarbonate 13.5 mmol/L. He was given insulin D50 calcium gluconate in the [place] emergency room. He had a CAT scan abdomen pelvis done which showed obstructive kidney stones in the right UPJ and total atrophy of the left kidney. Case was discussed with the on-call urologist Dr. Olivares and recommended patient needs to be n.p.o. for surgical intervention. He was transferred to [facility] for further care. Patient is history of CKD due to the longstanding DM, HTN and recurrent KELSEA with baseline serum creatinine 1.4 to 1.6 mg/dL. He follows in my office for his CKD care. Patient after arrival at the [facility] hada repeat labs done which showed persistent [...] visible mass Skin: No rashes or bruises PLAYGROUND EQUIPMENT ERECTOR: Awake,Alert, following simple command Musculoskeletal: No joint [...] Mg Tablet.Dr) 81 mg PO DAILY [facility] Stop: 08/12/23 08:59 Last Admin: 08/13/22 08:44 Dose: Not Given Atorvastatin Calcium (Atorvastatin 40 Mg Tablet) 40 mg PO HS [facility] Stop: 08/11/23 21:59 Last Admin: 08/12/22 21:07 Dose: 40 mg Dextrose (Dextrose 50% In Water 25 Gm/50 Ml Syringe) 0 gm IV-PUSH PRN PRN PRN Reason: Hypoglycemia Stop: 08/11/23 14:01 Glucose (Dextrose 40% Gel 15 Gm Tube) 0 gm PO PRN PRN PRN Reason: Hypoglycemia Stop: 08/11/23 14:01 Guaifenesin (Guaifenesin 600 Mg Tab.Er.12h) 1,200 mg PO BID [facility] Stop: 08/12/23 20:59 Last Admin: 08/13/22 [...] mls @ 100 mls/hr IV Q24H [facility] Last Admin: 08/12/22 16:24 Dose: 100 mls/hr Azithromycin (Zithromax) 500 mg in 250 mls @ 250 mls/hr IV Q24H [facility] Last Admin: 08/12/22 15:06 Dose: 250 mls/hr Sodium Chloride (0.9% Sodium Chloride 1,000 Ml) 1,000 mls @ 0 mls/hr MISCELLANE.Q0M PRN PRN Reason: Dialysis Stop: 08/11/23 14:19 Last Infusion: 08/12/22 12:38 Dose: Infused Insulin Aspart (Insulin Aspart 300 Units/3 Ml Insuln.Pen) 0 units SUBCUT TID.[facility]; Protocol Stop: 08/11/23 16:59 Last Admin: 08/13/22 08:44 Dose: Not Given Insulin Glargine (Insulin Glargine 300 Units/3 Ml Insuln.Pen) 5 units SUBCUT DAILY [facility] Stop: 08/13/23 08:59 Last Admin: 08/13/22 08:45 Dose: Not Given Metoprolol Tartrate (Metoprolol Tartrate 50 Mg Tablet) 50 mg PO BID [facility] Stop: 08/11/23 20:59 Last Admin: 08/13/22 [...] signed by Alicia Perea MD> 08/13/22 1129 [facility] Work Phone: [phone] Progress note Author Cade Alvarez [facility] August 13, 2022 9:40am Note Date/Time August 13, 2022 9:35am [facility] [address] [place] [address] Cardiology Progress Note Signed Patient: Victorino Smyth MR#: [id number] : 1940 Acct:[id number] Age/Sex: 82 / M Adm Date: 3 Loc: Room: [address] [place] [address] Type: ADM IN Attending Dr: Hiral Interiano [...] MPV Neut % (Auto) Lymph % (Auto) [place] % (Auto) Eos % (Auto) Baso % (Auto) Nucleat RBC Rel Count Neut # (Auto) Lymph # (Auto) [place] # (Auto) Eos # (Auto) Baso # [...] RNA (PCR) IU/mL N/A HCV RNA PCR helicopter dispatcher log10 N/A Hepatitis C Interp 08/12/22 08/12/22 08/13/22 19:37 21:06 04:28 Corrected WBC 9.9 Uncorrected WBC Count 9.9 RBC 3.54 L Hgb 11.6 L Hct 34.2 L MCV 96.5 MCH 32.9 MCHC 34.1 RDW 13.7 Plt Count 129 L MPV 8.7 Neut % (Auto) 79.2 Lymph % (Auto) 9.6 [place] % (Auto) 9.8 Eos % (Auto) 0.9 Baso % (Auto) 0.5 Nucleat RBC Rel Count 0.1 Neut # (Auto) 7.8 H Lymph # (Auto) 0.9 L [place] # (Auto) 1.0 H Eos # (Auto) [...] HCV RNA (PCR) IU/mL HCV RNA PCR helicopter dispatcher log10 Hepatitis C Interp 08/13/22 08/13/22 04:28 05:25 Corrected WBC Uncorrected WBC Count RBC Hgb Hct MCV MCH MCHC RDW Plt Count MPV Neut % (Auto) Lymph % (Auto) [place] % (Auto) Eos % (Auto) Baso % (Auto) Nucleat RBC Rel Count Neut # (Auto) Lymph # (Auto) [place] # (Auto) Eos # (Auto) Baso # [...] HCV RNA (PCR) IU/mL HCV RNA PCR helicopter dispatcher log10 Hepatitis C Interp A&P - Cardiology [...] Code(s): I25.10 - Atherosclerotic heart disease of [place] coronary artery without angina pectoris Status: Acute Plan: Preoperative recommendations as above. Plan Thank you very much for this kind consultation and for allowing us to participate in the care of this very pleasant patient Time spent with patient Time Spent With Patient (min): 30 Documented By: Cade Alvarez MD 08/13/22 0934 Signed By: <Electronically signed by Cade Alvarez MD> 08/13/22 0940 [facility] Work Phone: 1([phone] 574-564002-16-2023 Progress note Author Hiral Interiano [facility] August 12, 2022 4:04pm Note Date/Time August 12, 2022 4:04[facility] [address] [place] [address] Hospitalist Progress Note Signed Patient: Victorino Smyth MR#: [id number] : 1940 Acct:[id number] Age/Sex: 82 / M Adm Date: 3 Loc: Room: [address] [place] [address] Type: ADM IN Attending Dr: Hiral Interiano [...] Dose Route Start Last Admin Trade Name Katherine PRN Reason Stop Dose Admin Acetaminophen 650 [...] 50 mls @ 100 mls/hr 08/11/22 14:15 08/11/22 21:49 Rocephin IV Infused Q24H [facility] Infusion [...] 08/11/23 16:59 Not Given TID.[facility] Protocol Metoprolol Tartrate 50 mg 08/11/22 21:00 [...] kidney disease: Plan: Patient was transferred from [place] ER when found to have acute kidney [...] <Electronically signed by Hiral Interiano MD> 08/12/22 2046 [facility] Work Phone: [phone] Progress note Author Alicia Perea [facility] August 12, 2022 11:29am Note Date/Time August 12, 2022 11:24am [facility] [address] [place] [address] Nephrology Progress Note Signed Patient: Victorino Smyth MR#: [id number] : 1940 Acct:[id number] Age/Sex: 82 / M Adm Date: 3 Loc: Room: [address] [place] [address] Type: ADM IN Attending Dr: Hiral Interiano MD Copies to: ~ Date of Service: 08/12/2022 Subjective Subjective Narrative: This is a 82-year-old male with a medical history of coronary artery disease s/pPCI, nephrolithiasis, CKD, diabetes mellitus, hypertension, dyslipidemia was presented to the emergency room of [facility] for generalized weakness and low urine output. On evaluation emergency room patient was found to have a life- threatening hyperkalemia with serum potassium 7 mmol/L, acute kidney injurywith elevated serum creatinine 17.8 mg/dL, metabolic acidosis serum bicarbonate 13.5 mmol/L. He was given insulin D50 calcium gluconate in the [place] emergency room. He had a CAT scan abdomen pelvis done which showed obstructive kidney stones in the right UPJ and total atrophy of the left kidney. Case was discussed with the on-call urologist Dr. Olivares and recommended patient needs to be n.p.o. for surgical intervention. He was transferred to [facility] for further care. Patient is history of CKD due to the longstanding DM, HTN and recurrent KELSEA with baseline serum creatinine 1.4 to 1.6 mg/dL. He follows in my office for his CKD care. Patient after arrival at the [facility] hada repeat labs done which showed persistent [...] visible mass Skin: No rashes or bruises PLAYGROUND EQUIPMENT ERECTOR: Awake,Alert, following simple command Musculoskeletal: No joint [...] 81 Mg Tablet.) 81 mg PO DAILY [facility] Stop: 08/12/23 08:59 Last Admin: 08/12/22 08:20 [...] mls @ 100 mls/hr IV Q24H [facility] Last Infusion: 08/11/22 21:49 Dose: Infused Azithromycin (Zithromax) 500 mg in 250 mls @ 250 mls/hr IV Q24H [facility] Last Admin: 08/11/22 16:00 Dose: 250 mls/hr Sodium Chloride (0.9% Sodium Chloride 1,000 Ml) 1,000 mls @ 0 mls/hr MISCELLANE.Q0M PRN PRN Reason: Dialysis Stop: 08/11/23 14:19 Last Admin: 08/12/22 10:24 Dose: 999 mls/hr Insulin Aspart (Insulin Aspart 300 Units/3 Ml Insuln.Pen) 0 units SUBCUT TID.[facility]; Protocol Stop: 08/11/23 16:59 Last Admin: 08/12/22 08:07 Dose: Not Given Metoprolol Tartrate (Metoprolol Tartrate 50 Mg Tablet) 50 mg PO BID [facility] Stop: 08/11/23 20:59 Last Admin: 08/12/22 [...] Rehan Fuentes M.D.08/11/2022 4:10 PM Dictation Location: [place] [address] Any impression(s) listed above is documentation that [...] signed by Alicia Perea MD> 08/12/22 1129 [facility] Work Phone: [phone]) [phone] Progress note Author Cade Alvarez [facility] August 12, 2022 10:04am Note Date/Time August 12, 2022 10:05am [facility] [address] [place] [address] Cardiology Progress Note Signed Patient: Victorino Smyth MR#: [id number] : 1940 Acct:[id number] Age/Sex: 82 / M Adm Date: 3 Loc: Room: [address] [place] [address] Type: ADM IN Attending Dr: Hiral Interiano [...] % (Auto) N/A Lymph % (Auto) N/A [place] % (Auto) N/A Eos % (Auto) N/A Baso % (Auto) N/A Nucleat RBC Rel Count N/A Neut # (Auto) N/A Lymph # (Auto) N/A [place] # (Auto) N/A Eos # (Auto) N/A [...] MPV Neut % (Auto) Lymph % (Auto) [place] % (Auto) Eos % (Auto) Baso % (Auto) Nucleat RBC Rel Count Neut # (Auto) Lymph # (Auto) [place] # (Auto) Eos # (Auto) Baso # [...] MPV Neut % (Auto) Lymph % (Auto) [place] % (Auto) Eos % (Auto) Baso % (Auto) Nucleat RBC Rel Count Neut # (Auto) Lymph # (Auto) [place] # (Auto) Eos # (Auto) Baso # [...] % (Auto) 88.0 Lymph % (Auto) 4.4 [place] % (Auto) 7.4 Eos % (Auto) 0.0 Baso % (Auto) 0.2 Nucleat RBC Rel Count 0.0 Neut # (Auto) 11.8 H Lymph # (Auto) 0.6 L [place] # (Auto) 1.0 H Eos # (Auto) [...] MPV Neut % (Auto) Lymph % (Auto) [place] % (Auto) Eos % (Auto) Baso % (Auto) Nucleat RBC Rel Count Neut # (Auto) Lymph # (Auto) [place] # (Auto) Eos # (Auto) Baso # [...] Code(s): I25.10 - Atherosclerotic heart disease of [place] coronary artery without angina pectoris Status: Acute Plan: Preoperative recommendations as above. Plan Thank you very much for this kind consultation and for allowing us to participate in the care of this very pleasant patient Time spent with patient Time Spent With Patient (min): 30 Documented By: Cade Alvarez MD 08/12/22 0959 Signed By: <Electronically signed by Cade Alvarez MD> 08/12/22 100 [facility] Work Phone: [phone] Consult note Author Alicia Perea [facility] August 11, 2022 5:46pm Note Date/Time August 11, 2022 4:00pm [facility] [address] [place], [place] [address] Nephrology Consult Note Signed with Nancy Patient: Victorino Smyth MR#: [id number] : 1940 Acct:[id number] Age/Sex: 82 / M Adm Date: 3 Loc: Room: [address] [place] [address] Type: ADM IN Attending Dr: Hiral Interiano [...] was presented to the emergency room of [facility] for generalized weakness and low urine output. On evaluation emergency room patient was found to have a life- threatening hyperkalemia with serum potassium 7 mmol/L, acute kidney injurywith elevated serum creatinine 17.8 mg/dL, metabolic acidosis serum bicarbonate 13.5 mmol/L. He was given insulin D50 calcium gluconate in the [place] emergency room. He had a CAT scan abdomen pelvis done which showed obstructive kidney stones in the right UPJ and total atrophy of the left kidney. Case was discussed with the on-call urologist Dr. Olivares and recommended patient needs to be n.p.o. for surgical intervention. He was transferred to [facility] for further care. Patient is history of CKD due to the longstanding DM, HTN and recurrent KELSEA with baseline serum creatinine 1.4 to 1.6 mg/dL. He follows in my office for his CKD care. Patient after arrival at the [facility] hada repeat labs done which showed persistent [...] Mg Tablet.Dr) 81 mg PO DAILY [facility] Stop: 08/12/23 08:59 Atorvastatin Calcium (Atorvastatin 40 Mg Tablet) 40 mg PO HS [facility] Stop: 08/11/23 21:59 Dextrose (Dextrose 50% [...] mls @ 100 mls/hr IV Q24H [facility] Azithromycin (Zithromax) 500 mg in 250 mls @ 250 mls/hr IV Q24H [facility] Sodium Chloride (0.9% Sodium Chloride 1,000 Ml) 1,000 mls @ 0 mls/hr MISCELLANE .Q0M PRN PRN Reason: Dialysis Stop: 08/11/23 14:19 Insulin Aspart (Insulin Aspart 300 Units/3 Ml Insuln.Pen) 0 units SUBCUT TID.[facility]; Protocol Stop: 08/11/23 16:59 Metoprolol Tartrate (Metoprolol Tartrate 50 Mg Tablet) 50 mg PO BID [facility] Stop: 08/11/23 20:59 Nitroglycerin (Nitroglycerin 0.4 [...] visible mass Skin: No rashes or bruises PLAYGROUND EQUIPMENT ERECTOR: Awake,Alert, following simple command Musculoskeletal: No joint [...] Patient consented for dialysis. I consulted the product analyst for hemodialysis catheter placement which was placed [...] team. Documented By: Alicia Perea MD 08/11/22 8544 Signed By: <Electronically signed by Alicia Perea MD> 08/11/[address] [facility] Work Phone: [phone] Consult note Author Cade Alvarez [facility] August 11, 2022 4:47pm Note Date/Time August 11, 2022 4:36pm [facility] [address] [place] [address] Cardiology Consult Note Signed Patient: Victorino Smyth MR#: [id number] : 1940 Acct:[id number] Age/Sex: 82 / M Adm Date: 3 Loc: Room: [address] [place] [address] Type: ADM IN Attending Dr: Hiral Interiano [...] syndrome in 2017. Patient initially presented to [place] emergency department complaining of shortness of breath [...] # (Auto) N/A Lymph # (Auto) N/A [place] # (Auto) N/A Eos # (Auto) N/A [...] nonspecific abnormality, ST segment, and/or T wave MN, pacemaker, normal Normal tracing: no change compared [...] Code(s): I25.10 - Atherosclerotic heart disease of [place] coronary artery without angina pectoris Plan Thank you very much for this kind consultation and for allowing us to participate in the care of this very pleasant patient Documented By: Cade Alvarez MD 08/11/22 1634 Signed By: <Electronically signed by Cade Alvarez MD> 08/11/[address] [facility] Work Phone: [phone]) [phone] Consult note Author Ni Olivares [facility] August 11, 2022 3:24pm Note Date/Time August 11, 2022 3:24pm [facility] [address] [place] [address] Urology Consult Note Signed Patient: Victorino Smyth MR#: [id number] : 1940 Acct:[id number] Age/Sex: 82 / M Adm Date: 3 Loc: Room: [address] [place] [address] Type: ADM IN Attending Dr: Hiral Interiano MD Copies to: MD Ni James MD Mazhar Rahman, MD~ History of Present Illness Consult Details Consult Date: 08/11/2022 Requesting Provider: Hiral Interiano MD HPI: Mr. Smyth is an 82-year-old man transferred from the [facility]. The patient presented with some [...] the emergency room prior to transfer to [facility]. He finished breakfast at about 11 [...] 48 hrs. 08/11/22 13:39: B-Hydroxybutyrate 2.40 H 02/15/23 13:39: PT 12.2, INR 1.0 08/11/22 13:39: Troponin I High Sens 16 08/11/22 13:39: Corrected WBC 9.1, Uncorrected WBC Count 9.1, RBC 3.85 L, Hgb 12.5 L, Hct 38.1 L, MCV 99.0, MCH 32.5, MCHC 32.8, RDW 13.8, Plt Count 203, MPV 8.8, Neut % (Auto) N/A, Lymph % (Auto) N/A, [place] % (Auto) N/A, Eos % (Auto) N/A, Baso % (Auto) N/A, Nucleat RBC Rel Count N/A, Neut # (Auto) N/A, Lymph # (Auto) N/A, [place] # (Auto) N/A, Eos # (Auto) N/A, [...] actually worse than that noted at the [facility] at a current level of 7.4. [...] indicated. Documented By: Ni Olivares MD 08/11/22 1513 Signed By: <Electronically signed by MD Ni Olivares> 08/11/22 1524 [facility] Work Phone: 1([phone]) 933-586402-15-2023 History and physical note Author Hiral Interiano [facility] August 11, 2022 2:02pm Note Date/Time August 11, 2022 2:02pm [facility] [address] [place] [address] Hospitalist H&P Signed Patient: Victorino Smyth MR#: [id number] : 1940 Acct:[id number] Age/Sex: 82 / M Adm Date: 3 Loc: 3T Room: 2R7221-5 Type: ADM IN Attending Dr: Hiral Interiano [...] of nephrolithiasis. Patient has been transferred from [facility] ER for acute kidney injury and [...] repeated labs available in the record from [facility]. Chest x-ray read as mild [...] a similar feeling when he had an MN in 2017 and prior to that in [...] noted below or in HPI [facility] Medical History (Updated 08/11/22 @ 13:59 by [...] type 2. He has been transferred from [place] ER for obstructive uropathy with worsening renal failure and hyperkalemia. I was informed the patient was given cocktail for hyperkalemia with no repeated labs available in the record. Patient arrival to floor complaining of midsternal discomfort and mentioned having similar feeling when he had an MN. Does appear tachypneic likely from metabolic acidosis. [...] code at this time. Documented By: Hiral Intreiano MD 08/11/22 1351 Signed By: <Electronically signed by Hiral Interiano MD> 08/11/[address] [facility] Work Phone: 1(216) 611-353302-15-2023 [facility] Encounter Date Diagnosis Assessment Notes Treatment Notes Treatment Clinical Notes May, Diabetes mellitus wi th chronic kidney disease (ICD-10 - E11.22) He has umo-wlwljgv-ymja ndent type 2 diabetes and currently takes [...] have advised him to adequately hydrate himself. [employer] Other 08-11-2022 NotePROCEDURE: XR KNEE LT 4V or > COMPARISON: None. HISTORY: Pain of left knee joint FINDINGS: BONES:No acute fracture or dislocation. Minimal degenerative changes. SOFT TISSUES:Negative. No visible soft tissue swelling. EFFUSION:None visible. OTHER: Vascular calcification IMPRESSION: No acute abnormality Electronically authenticated by: TYLER MONSIVAIS Date: 2022-02-04 07:23[facility] Evaluation note* Encounter Date Diagnosis Assessment Notes Treatment Notes Treatment Clinical Notes October, Diabetes mellitus wi th chronic kidney disease (ICD-10 - E11.22) He has ufv-vqokngg-mudkx dent type 2 diabetes and currently takes [...] have advised him to adequately hydrate himself. [employer] Other 05-02-2022 Hospital Discharge instructions Follow Up Care 10/26/2021 10:06:54 With:KADE OLIVEROS, Milton Brewer, SUEL Address: [address] [place] [id number]- When: Unknown [facility] 05-02-2022 Hospital Discharge instructions Patient [...] 06/13/2006 Document Revised: 03/02/2019 Document Reviewed: 05/13/2017 [employer] Patient Education 2020 [employer]. 10/26/2021 09:44:44 Urinary Frequency, Adult Urinary Frequency, [...] to keep your urine pale yellow. ?Take cdcy-dbq-meqeaje or prescription medicines. ?Eat foods that are high in fiber, such as beans, whole grains, and fresh fruits and vegetables. ?Limit foods that are high in fat and processed sugars, such as fried or sweet foods. General instructions Take djgf-jvh-hqhmakm and prescription medicines only as told by [...] the muscles that help control urination. Take whly-drj-kqpcvep and prescription medicines only as told by your health care provider. Contact a health care provider if your symptoms do not improve or get worse. This information is not intended to replace advice given to you by your health care provider. Make sure you discuss any questions you have with your health care provider. Document Released: 04/09/2010 Document Revised: 12/21/2018 Document Reviewed: 12/21/2018 [employer] Patient Education 2020 [employer]. 10/26/2021 09:44:41 Kidney Stones, Rpxs-yb-Efyh Kidney Stones Kidney stones are rock-like masses [...] Follow these instructions at home: Medicines Take jbkc-azd-uejctxb and prescription medicines only as told by [...] 11/29/2008 Document Revised: 10/30/2019 Document Reviewed: 10/30/2019 Elsevier Patient Education 2019 [employer] Follow Up Care 02/23/2021 14:09:11 With:KADE OLIVEROS, Milton Brewer, BHUPINDER Address: [facility] [address], [place] [address]- When:10/26/2022 [facility] 11-30-2021 Evaluation note* Encounter Date Diagnosis Assessment Notes Treatment Notes Treatment Clinical Notes Apr, Diabetes mellitus wi th chronic kidney disease (ICD-10 - E11.22) He has gwm-rqvshcm-dkcuf dent type 2 diabetes and currently takes [...] have advised him to adequately hydrate himself. [employer] Other Evaluation + Plan note Future Appointments Appointment Date:10/29/2022 08:45:00 AM Scheduled Provider:Milton BRAUN MD Location:[facility] Appointment Type:URO Office Visit [facility] evaluation + Plan note Future Appointments Appointment Date:09/14/2022 07:30:00 AM Scheduled Provider[facility] Appointment Type:Surgical PAT FT Appointment Date:10/07/2022 12:00:00 PM Scheduled Provider: Location:[facility] Appointment Type:Surgery FT Appointment Date:10/29/2022 08:45:00 AM Scheduled Provider:Milton BRAUN MD Location:[facility] Appointment Type:URO Office Visit [facility] Evaluation + Plan note Future Appointments Appointment Date:11/18/2022 10:30:00 AM Scheduled Provider: Location:[facility] Appointment Type:Surgical PAT FT Appointment Date:12/02/2022 11:45:00 AM Scheduled Provider: Location:[facility] Appointment Type:Surgery FT [facility] evaluation + Plan note Future Appointments Appointment Date:06/12/2024 11:00:00 AM Scheduled Provider:Ni OLIVARES MD Location:[facility] Appointment Type:URO Office Visit Future Scheduled Tests Laboratory* Total Protein 24 Hour Urine 02/14/23 [facility] Evaluation note* Diagnosis Onset Date Resolution Status Acute kidney injury superimp osed on chronic kidney disease acute Acute kidney insufficiency a cute CAD (coronary artery disease) acute CKD (chronic kidney disease) stage 3, GFR 30-59 ml/min acute Elevated PSA acute Hydronephrosis with ureteral calculus acute Hyperkalemia acute [id number] acute Left renal atrophy acute Metabolic acidosis acute Obstructive nephropathy acut e Preoperative cardiovascular examination acute Right ureteral stone acute 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 Diabetes chronic [facility] Work Phone: Evaluation noteNo assessment information available [facility] Work Phone: Hisehnk general Narrative - Reported* Type Description Date Medical History DIABETES MELLITUS Medical History CORONARY ARTERY DISEASE Medical History MORBID OSESITY Surgical History HERNEA LOWER RIGHT ABDOMINAL Surgical History HEART ATTACK WITH STENT PLACEME NT IN THE LAD Surgical History KIDNEY STENTS X 2 Surgical History PROSTRATE BIO PAD Surgical History KIDNEY STENTS X2 Surgical History KIDNEY STONE REMOVAL Hospitalization History SEE ABOVE [employer] Other Hisjnzp general Narrative - Reported* Type Description Date [...] KIDNEY STONE REMOVAL Hospitalization History SEE ABOVE [employer] Other History general Narrative - Reported* Type [...] KIDNEY STONE REMOVAL Hospitalization History SEE ABOVE [employer] Other Hisykce general Narrative - Reported* Type Description Date [...] History KELSEA, HYPERKALEMIA, METAB OLIC ACIDOSIS 08/11/2022 [employer] Other Hospital course Narrative No data available for this section [facility] Discharge instructions Additional Instructions Follow-up with your Primary Vegetable Sorter in 4 weeks. Avoid NSAIDs for pain control. Call [facility] Scheduling on Tuesday at [phone] to arrange a follow up CT scan regarding lung nodule in 4 weeks. Maintain occlussive dressing to HD catheter removal site for 48 hours - return to the Emergency Room for oozing or drainage from catheter exit site, noticeable swelling or itching around neck, shortness of breath, [facility] Work Phone: Progress note No data available for this section [facility] Chief Complaint and Reason for Visit Chief Complaint ACUTE RENAL FAILURE Reason for Visit Acute kidney injury superimposed on chronic kidney disease Acute kidney insufficiency CAD (coronary artery disease) CKD (chronic kidney disease) stage 3, GFR 30-59 ml/min Elevated PSA Hydronephrosis with ureteral calculus Hyperkalemia [id number] Left renal atrophy Metabolic acidosis Obstructive nephropathy [...] Kiser MD Other Provider Active Jen Tamayo [facility]- Other Provider Active Aaliyah Mitchell MD [...] section and content) DATE CREATED AUTHOR 10/03/2022 [facility] DATE CREATED AUTHOR AUTHOR'S ORGANIZ ATION 12/07/2022 [facility] DATE CREATED AUTHOR AUTHOR'S ORGANIZ ATION 01/27/2023 [facility] DATE CREATED AUTHOR AUTHOR'S ORGANIZ ATION 07/05/2023 Gerardo [facility] DATE CREATED AUTHOR AUTHOR'S ORGANIZ ATION 08/05/2023 [facility] Goals (unrecognized section and content) Goals [...] BE BASED ON THE PRIMARY CLINICAL RECORDS. [employer] provides no warranty or guarantee of the accuracy or completeness of information in this document.
[2023-08-29 08:54] LABS: Estimated GFR (African America 47 (>=60); Estimated GFR (Non-African Ame 39 (>=60)
== END 2023-08-29 08:06 | disposition home or self-care (01) ==
LOC: LAB 08:05
PROVIDERS: PCP Family Medicine; Visit Provider Surgery
DX: R10.84 Generalized abdominal pain (principal); K35.890 Other acute appendicitis without perforation or gangrene
CPT/HCPCS: 36415; 74177; 82565; Q9966

== ENCOUNTER 2023-09-27 07:54 | Outpatient (OUT) | payer MEDICARE, SELFPAY ==
--- OUTSIDE RECORDS SUMMARY | 2023-09-27 07:58 | XMS_ITS | CCD ---
Author Organization [facility] Care Team Providers Care Electric Meter Repairer Apprentice Name Role Phone Tray Alfaro Primary Care Physician Alicia Perea Unavailable MD Tray Alfaro Primary Care Provider MD Hiral Interiano Admit Provider MD Hiral Interiano Attending Provider ALISHA Mckinleyher Other Provider Unavailable DO Lizzy Lin Other Provider MD Niharika Elias Other Provider MD Joel Lrakin Other Provider MD Isidro Dow Other Provider MD Peter Manuel Other Provider ILA Borges Other Provider MD Peyton Barragan Other Provider MD Divina Soloammed Brianalito Other Provider MD Skinny Kiser Other Provider Belkis [facility] Jen Desir Other Provider MD Aaliyah Mitchell Other Provider MD Alicia Perea Other Provider MD Milton Braun Other Provider [phone] MD Ni Olivares Other Provider [phone] MD Yogesh Omalley Other Provider MD Kiran Eldridge Jr Other Provider MD Fátima Ivey Other Provider MD Shaquille Villarreal Other Provider [phone] MD Bipin Barclay Other Provider BRIT, [...] Unavailable COOK, DR NI Garcia Admitting Unavailable MILFORD, DR TYLER Coello Consulting Unavailable HOY ., [...] Unavailable BRAUN ., DR ROSE Admitting Unavailable MILFORD, DR TYLER Coello Consulting Unavailable THADDEUS DAUGHERTY Attending Unavailable HOY ., DR FELIZ Primary Care Unavailable LILIAN, DR CADE Craig Consulting Unavailabl e DAT, THADDEUS Admitting Unavailable DAT, THADDEUS Consulting Unavailable YOGESH BYERS Consulting Unavailable JULIÁN, ILA Consulting Unavailable BRIT, ALICIA Attending Unavailable BRIT, [...] Unavailable HOY ., DR FELIZ Admcrescencio Unavailable ISRA GAYLE Consulting Unavailable ISRA GAYLE Attending Unavailable HOY ., DR FELIZ Primary Care Unavailable IRWINISRA Admitting Unavailable HOY ., DR FELIZ Attending [...] Unavailable HOY ., DR FELIZ Attending Unavailable MD Tray Alfaro Primary Care Provider [phone] MD Ni Olivares Attending Provider COOKNi P Referring Unavailable COOK, Ni P Admitting Unavailable COOK, Ni Garcia Attending Unavailable MD ALICIA PEREA Admitting Unavailable MD ALICIA PEREA Attending Unavailable COOK, Ni P Attending Unavailable COOK, Ni P Referring Unavailable COOK, Ni P Admitting Unavailable COOK, Ni P Referring Unavailable COOK, Ni P Admitting Unavailable COOK, Ni P Attending Unavailable COOK, Ni P Referring Unavailable COOK, Ni P Admitting Unavailable COOK, Ni P Attending Unavailable COOK, Ni P Attending Unavailable INTERIANOHIRAL Referring Unavailable COOK, Ni P Attending Unavailable COOK, Ni P Attending Unavailable COOK, Ni P Attending Unavailable BRAUN, Milton R Attending Unavailable COOK, Ni P Attending Unavailable COOK, Ni P Referring Unavailable COOK, Ni P Admitting Unavailable Cook, Ni P Admitting Unavailable Hoy, Tray M Primary Care Unavailable Ni Olivares Attending Unavailable Jaydon, Hiral Admitting Unavailable Gita Mckinley Consulting Unavailable Tray Alfaro M Primary Care Unavailable Interiano, Hiral Attending Unavailable Lizzy Lin Consulting Unavailable Niharika [...] Unavailable Bipin Barclay Consulting Unavailable Tray Alfaro M Primary Care Unavailable Ni Olivares Admitting Unavailable Ni Olivares Attending Unavailable Tray Alfaro M Primary Care Unavailable Ni Olivares Admitting Unavailable Ni Olivares Attending Unavailable Jose Alfarolas M Primary Care Unavailable Interiano, Hiral Admitting Unavailable Interiano, Hiral Attending Unavailable ISRA GAYLE Attending Unavailable IRIS CORONEL Attending Unavailable IRIS CORONEL Attending Unavailable JENNIFER HUYNH Attending Unavailable GABRIEL DRISCOLL Attending Unavailable Allergies Allergy Classification Reported Allergen(s) Allergy Type Date of Onset Reaction(s) Facility (12 sources) Ciprofloxacin; Translations: [ciprofloxacin] Drug Allergy 08-13-19 Eruption of skin (disorder) [facility] (13 sources) Penicillin; Translations: [penicillin] Drug Allergy Eruption of skin (disorder) [facility] [employer] Other (6 sources) Ciprofloxacin Drug Allergy Unknown [facility] [employer] Other (7 sources) Penicillins; Translations: [Penicillins] Allergy to substance 06-14-20 [facility] (1 source) Ciprofloxacin Drug Allergy 03-10-20 [facility] (3 sources) levothyroxine; Translations: [levothyroxine] Drug Allergy Swelling of oral cavity structure (finding) [facility] (3 sources) liothyronine; Translations: [liothyronine] Drug Allergy Swelling of oral cavity structure (finding) [facility] (1 source) No Known Medication Allergies; Translations: [No Known Medication Allergies] Propensity to adverse reactions (disorder) [facility] (1 source) Ciprofloxacin Drug Allergy 06-14-20 [facility] Medications Current Medications Medication Drug Class(es) Dates Sig (Normalized) Sig (Original) acetaminophen 325 mg / HYDROcodone bitartrate 5 mg oral tablet (1 source) Opioid Agonist Start: 10-07-2022 End: 10-09-2022 acetaminophen-hyd rocodone 325 mg-5 mg oral tablet 1 tab(s), Oral, q4hr Pain for 2 day(s), 7 tab(s), Refill(s) 0, [id number], 175, cm, 09/15/22 5:20:00 EDT, Height/Length Dosing, [...] Status: Ordered take 1 capsule by mo [facility] every twenty-four hours Vitamin D3 125 MCG [...] afterwards, # 2 cap(s), Refills(s) 0, Pharmacy: [id number], 177, cm, 11/18/22 13:54:00 EDT, Height/Length Dosing, [...] Start: 04-10-2019 take 1 capsule by mo [facility] once daily glucosamine 500 mg Cap 500 [...] Status: Ordered take 1 tablet by [place] every twenty-four hours Liothyronine Sodium 5 MCG [...] 2019 12:11pm take 1 tablet by [place] every twenty-four hours Lisinopril 20 MG 1 [...] Status: Ordered take 1 tablet by [place] every twelve hours Ranolazine ER 500 MG 1 tablet Orally Twi ce a day Active sildenafil 100 mg oral tablet (5 sources) Phosphodiesterase 5 Inhibitor Start: 08-18-2020 Viagra 100 mg Tab 100 mg = 1 tab(s), Oral, As Directed, 1 hour before sexual activity, # 30 tab(s), Refills(s) 2, Pharmacy: [id number], 174, cm, 08/18/20 12:16:00 EST, Height/Length [...] Date: 04/11/19 Status: Ordered 60 actuat tiotropium 0.97448 mg/actuat inhalation spray (11 sources) Anticholinergic Start: [...] Coronary arteriosclerosis; Translations: [Atherosclerotic heart disease of [place] coronary artery without angina pectoris] Onset: 3 04-10-2019 Chronic Deficiency and other anemia (6 sources) Anemia [...] polyp of large intestine 04-10-2019 Episodic Other circulatory disease (2 sources) Other hypotension; Translations: [Other hypotension] Onset: 4 Episodic Other connective tissue disease (4 sources) [...] Translations: [Solitary pulmonary nodule] 08-15-2022 Episodic Other male genital disorders (9 sources) [...] Other Problems Problem Classification Problem Date Documented Da te Episodic/Chronic Acute and unspecified renal failure (17 sources) Acute renal failure syndrome; Translations: [Injury of kidney] Onset: 08-11-2022 08-18-2020 Episodic Coronary atherosclerosis and other heart disease (8 sources) Patient post percutaneous transluminal coronary angioplasty; Translations: [Coronary angioplasty status] Onset: 01-26-2023 Episodic Fluid and electrolyte disorders (12 sources) Metabolic acidosis; Translations: [Metabolic acidosis] Onset: 08-11-2022 08-11-2022 Episodic Malaise and fatigue (1 source) Other fatigue; Translations: [OTHER FATIGUE] Onset: 08-25-2022 Episodic Nonspecific chest pain (2 sources) Chest pain, unspecified; Translations: [Chest pain, unspecified] Onset: 10-14-2022 Episodic Other aftercare (1 source) detention (current) use of aspirin; Translations: [COMMERCIAL COUNSEL CURRENT USE OF ASPIRIN] Onset: 08-13-2022 Episodic Other aftercare (1 source) Other fdc (current) drug therapy; Translations: [OTH ASSISTED CURRENT DRUG THERAPY] Onset: 08-13-2022 Episodic Other [...] Onset: 10-14-2022 Episodic Other lower respiratory disease (6 sources) Shortness of breath; Translations: [SHORTNESS OF BREATH] Onset: 08-11-2022 Episodic Other lower respiratory disease (2 sources) [...] Test Name Value Interpretation Reference Range Facility 36on 09-06-2023 36 Blood pressure is lo oking better. Continue to hold amlodipine. Thanks! Normal [facility] 37on 08-23-2023 37 *Stop Amlodipine. *We will call you in 1 week to check in on your blood pressure readings. Normal [facility] Office Visiton 08-23-2023 Follow-up visit [id number] SmythRuben 1940 M Date Provider Department Center 08/23/2023 ISRA HICKS CARD [facility] Family History Problem Relation Age of Onset No Known Problems Mother No Known Problems Father Family Status - Relation Status Age at Mother Father Level of Service:01537 [place] OFFICE/OUTPATIENT ESTABLISHED MOD MDM [address] [facility] Lab Reportson 07-05-2023 Lab Reports [id number]#1.00TIFF Normal [facility] Lab Reports [id number]#1.00TIFF Normal [facility] Blood Urea Nitrogenon 2023 Urea nitrogen [Mass/Vol] 31 mg/dL High 7- [facility] Comment on above: Performed By: #### L YTES, CREAT, BUN, PTH, URIC, CA ####[facility] [address] [place] [address] [facility] Calciumon 07-02-2023 Calcium [Mass/Vol] 8.8 mg/dL Normal 8.6-10.3 [facility] Comment on above: Performed By: #### L YTES, CREAT, BUN, PTH, URIC, CA ####[place] [id number] [place] [id number] [facility] Calcium [Mass/volume] in Ser um or PlasmaOrdered By: Ni Olivares on 07-02-2023 Calcium [Mass/Vol] 8.8 mg/dL 8.6-10.3 [facility] Carbon dioxide, total [Moles /volume] in Serum or PlasmaOrdered By: Ni Olivares on 07-02-2023 CO2 [Moles/Vol] 24.0 mmol/L 21.0-31.0 [facility] Chloride [Moles/volume] in S paty or PlasmaOrdered By: Ni Olivares on 07-02-2023 Chloride [Moles/Vol] 107 mmol/L 98-[address] [facility] Creatinineon 07-02-2023 Creatinine [Mass/Vol] 2.05 mg/dL High 0.70-1.30 [facility] Comment on above: Performed By: #### L TWAN, CREAT, BUN, PTH, URIC, CA ####[place] [id number] [facility] GFR/1.73 sq M.predicted MDRD (S/P/Bld) [Vol rate/Area] 32.151 mL/min/{1.73_m2} Normal [facility] Comment on above: Performed By: #### L YTES, CREAT, BUN, PTH, URIC, CA ####[address] [address] [facility] Creatinine [Mass/volume] in Serum or PlasmaOrdered By: Ni Olivares on 07-02-2023 Creatinine [Mass/Vol] 2.05 mg/dL 0.70-1.30 [facility] Electrolyteson 07-02-2023 Anion gap [Moles/Vol] 12.0 mmol/L Normal 6.0-15.0 [facility] Comment on above: Performed By: #### L YTES, CREAT, BUN, PTH, URIC, CA ####[facility] [place] [address] [facility] Chloride [Moles/Vol] 107 mmol/L Normal 98-[address] [facility] Comment on above: Performed By: #### L YTES, CREAT, BUN, PTH, URIC, CA ####[place] [address] [place] [address] [facility] CO2 [Moles/Vol] 24.0 mmol/L Normal 21.0-31.0 [facility] Comment on above: Performed By: #### L YTES, CREAT, BUN, PTH, URIC, CA ####[place] [address] [place] [address] [facility] Potassium [Moles/Vol] 5.0 mmol/L Normal 3.5-5.1 [facility] Comment on above: Performed By: #### L YTES, CREAT, BUN, PTH, URIC, CA ####[place] [address] [place] [address] [facility] Sodium [Moles/Vol] 138 mmol/L Normal 136-145 [facility] Comment on above: Performed By: #### L YTES, CREAT, BUN, PTH, URIC, CA ####[address] [address] [facility] No Panel InformationOrdered By: Ni Olivares on 07-02-2023 Estimated GFR (CKD-EPI) 32.151 mL/Min [facility] Creatinine Clearance (Chem N/A [facility] Parathyrin.intact [Mass/volu me] in Serum or PlasmaOrdered By: Ni Olivares on 07-02-2023 Parathyrin.intact [Mass/Vol] 55.4 pg/mL [facility] Parathyroid Hormone Intacton 07-02-2023 Parathyroid Hormone Intact 55.4 pg/mL Normal [facility] Comment on above: Result Comment: PERF ORMED BY: [facility] [address] [place] [address] PATHOLOGIST FLUME TENDER DIANDRA LACY M.D. Performed By: #### L YTES, CREAT, BUN, PTH, URIC, CA ####[facility] [place] [address] [facility] Potassium [Moles/volume] in Serum or PlasmaOrdered By: Ni Olivares on 07-02-2023 Potassium [Moles/Vol] 5.0 mmol/L 3.5-5.1 [facility] Serum or plasma anion gap de terminationOrdered By: Ni Olivares on 07-02-2023 Anion gap [Moles/Vol] 12.0 mmol/L 6.0-15.0 [facility] Sodium [Moles/volume] in Ser um or PlasmaOrdered By: Ni Olivares on 07-02-2023 Sodium [Moles/Vol] 138 mmol/L 136-145 [facility] Urate [Mass/volume] in Serum or PlasmaOrdered By: Ni Olivares on 07-02-2023 Urate [Mass/Vol] 8.2 mg/dL 4.4-7.6 [facility] Urea nitrogen [Mass/volume] in Serum or PlasmaOrdered By: Ni Olivares on 07-02-2023 Urea nitrogen [Mass/Vol] 31 mg/dL 7-25 [facility] Uric Acidon 07-02-2023 Urate [Mass/Vol] 8.2 mg/dL High 4.4-7.6 [facility] Comment on above: Result Comment: PERF ORMED BY: [facility] [address] [place] [address] PATHOLOGIST FLUME TENDER DIANDRA LACY M.D. Performed By: #### L YTES, CREAT, BUN, PTH, URIC, CA ####[facility] [place] [address] [facility] Lab Reportson 07-01-2023 Lab Reports [id number]#1.00TIFF Normal [facility] PSA Total (Not a Screen)on 0 06-28-2023 PSA Total (Not a Screen) 4.730 ng/mL High 0.000-4.00 0 [facility] Comment on above: Result Comment: Seri al tumor marker results determined by assays using different manufacturers or methods may not be comparable. [facility] security incident response engineer and method: [employer] DXI, CHEMILUMINESCENT IMMUNOASSAY. PERFORMED BY: [facility] [address] [place] [address] PATHOLOGIST FLUME TENDER DIANDRA LACY M.D. Performed By: #### P SATOTAL ####[facility] [place] [id number] [facility] Prostate specific Ag [Mass/v olume] in Serum or PlasmaOrdered By: Ni Olivares on 06-28-2023 Prostate specific Ag [Mass/Vol] 4.730 ng/mL 0.000-4.00 0 [facility] Comment on above: Serial tumor marker results determined by assays using different manufacturers or methods may not be comparable.[facility] security incident response engineer and method:Cloverleaf CommunicationsEL DXI, CHEMILUMINESCENT IMMUNOASSAY. RAD - Ultrasound Reporton RAD - Ultrasound Report [id number]#1.00TIFF Normal [facility] Lab Reportson 06-16-2023 Lab Reports [id number]#1.00TIFF Normal [facility] Lab Reports [id number]#1.00TIFF Normal [facility] Lab Reports [id number]#1.00TIFF Normal [facility] Screenson 06-16-2023 Screens [id number]#1.00TIFF Normal [facility] US renal BIon 06-16-2023 US renal BI [facility] Main [place] [address] [place] [address] Ultrasound Report Signed Patient: Victorino Smyth MR#: [id number] : 1940 Acct:[id number] Age/Sex: 82 / M ADM Date: 06/16/23 Loc: Room: Type: [facility] Attending Dr: Ni Olivares MD Ordering Provider: [...] Rehan Fuentes M.D.06/16/2023 4:02 PM Dictation Location: [place] [address] Tech: Sue Chiu Transcribed By: [facility] 06/16/23 1602 Dictated By: Rehan Fuentes DO 06/16/23 1559 Signed By: 06/16/23 1602 [facility] Ambulatory Visit Summaryon 1 08-15-2022 Ambulatory Visit Summary VICTORINO SMYTH Bryan :1940 Visit Date:06/14/2023 Ambulatory Visit Instructions Your Diagnosis Kidney stone BPH with urinary obstruction Prostate cancer Tests Performed Urnls Dip Stick Auto w/o Microscopy POC 74713 US Renal -- Results Pending -- Please [...] MARSHALL OLIVEROS, BHUPINDER Merritt When: Where: [address] [place] [address]- Medications What How Much When Instructions Unchanged [...] or concerns Unchanged (more content not included)... [facility] Formson 06-14-2023 Forms [id number]#1.00TIFF [facility] Patient Educationon 06-14-20 23 Patient Education Nephrology [...] ? 8 oz (237 mL) of milk, bavekzr-hdeuphvouemo-scpup milk, and calcium-fortifiedfruit juice. Calcium-fortified means that [...] Spinach (cooked), rhubarb, beets, sweet potatoes, and [place] Citizen chard. ? Peanuts. ? Potato chips, slovenian fries, and baked potatoes with skin on. ? Nuts and nut products. ? Chocolate. ? If you regularly take a diuretic medicine, make sure to eat at least 1 or 2 servings of fruits or vegetables that are high in potassium each day. These include: ? Avocado. ? Banana. ? [place], prune, carrot, or tomato juice. ? Baked [...] fish oil, or vitamin B6. ? Take qdci-yxp-xbhvhlv and prescription medicines only as told by your health care provider. These include supplements. What foods sh (more content not included)... Normal [facility] Urology Office/Clinic Noteon 06-14-2023 Urology Office/Clinic [...] with voice recognition artificial intelligence software, specifically [employer], [employer] and or Good Greens. Substitutions may have occurred due to the [...] prostate) TRUS/bx 07/05/[address] Carlisle. Path Union 6 (3+3) x2 involving 15%. Pt states [...] the PSA. Follow-up With When Contact Information Ni OLIVARES MD, URL [address] [place] [id number]- Additional Instructions: 1 year Patient Education Dietary Guidelines to Help Prevent Kidney Stones I, Dahiana Joseph, personally scribed for Dr. Olivares on 06/14/2023 09:48:20. . Documentation recorded by the scribDahiana linares, accurately reflects the services(s) I performed and decisions made by me. Authenticated by Dr. Olivares on 06/14/2023 09:53:11. 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 Normal [facility] Comment on above: Result Comment: Elec tronically Signed By: Ni OLIVARES MD\.br\Date and Time Signed: 06/14/23 09:55 EST\.br\Electronically Co-Signed By: Dahiana Joseph\.br\Date and Time Co-Signed: 06/14/23 09:48 EST\.br\Electronically Co-Signed By: Dahiana Joseph\.br\Date and Time Co-Signed: 06/14/23 09:50 EST Office Visiton 01-26-2023 Follow-up visit [id number] Ruben Smyth 1940 M Date Provider Department Center 01/26/2023 JENNIFER SMITH Family History Problem Relation Age of Onset No Known Problems Mother No Known Problems Father Family Status - Relation Status Age at Mother Father Level of Service:41766 [place] OFFICE/OUTPATIENT ESTABLISHED LOW MDM 20-[address] [facility] Consent for Procedure/Surger yon 12-21-2022 Consent for Procedure/Surgery [id number]:127 Normal [facility] IntraOperative Documentson 0 12-21-2022 IntraOperative Documents [id number]#1.00CD:127 Normal [facility] Consent for Treatmenton 11-26 Consent for Treatment [id number]#1.00CD:127 Normal [facility] Inpatient Patient Summaryon 12-20-2022 Inpatient Patient Summary [address] [address] Clinical Summary Person Information Name: VICTORINO SMYTH Age: 82 Years : 1940 Sex: Male PCP: Tray Alfaro MD Marital Status: Race: White Ethnicity: Non- or Language: Omani Visit Id: Visit Reason: RIGHT KIDNEY STONE Speciality: Acuity: Enc Type: Outpatient Med Service: Surgery Arrival: 12/20/2022 15:00:15 Discharge: Dispo Type: Address: [address] [place] [phone] Provider Notes: Diagnosis: Problems Active Flank pain [...] Follow up: With: Address: When: Ni [address]ARES [address], [facility] [address] [place] [phone] Business (1) Within 6 months Comments: Call for [...] Cystoscopy with Stent Removal Discharge Instructions (Custom) [facility] Main OR Intraoperative Recor don 12-20-2022 Main OR Intraoperative Record IntraOp Document Type FTURO Summary Primary Physician: Ni OLIVARES MD Finalized Date/Time: 12/20/22 16:29:12 Pt. Name: VICTORINO SMYTH/Sex: 1940 Male Med Rec #: [id number] Physician: Ni OLIVARES MD Financial #: [id number] Pt. Type: O Room/Bed: / Admit/Disch: 12/20/22 [...] Shabnam Garcia Role Performed Surgeon - Primary Public Safety Officer - Primary Scrub - Primary Time In 12/20/22 16:16:00 12/20/22 16:16:00 12/20/22 16:16:00 Time Out 12/20/22 16:28:00 12/20/22 16:28:00 12/20/22 16:28:00 Procedure CYSTOSCOPY LOCAL WITH CYSTOSCOPY LOCAL WITH CYSTOSCOPY LOCAL WITH STENT REMOVAL(Right) STENT REMOVAL(Right) STENT REMOVAL(Right) Comments Last Modified By: Gemma RN, Maggie Menendez RN, Maggie Menendez RN, Maggie [...] STONE Outcomes Met? Yes Last Modified By: Gemma BRITO, Maggie Garcia 12/20/22 16:17:20 Post-Care Text: The patient is [...] Position Verified Availability Equipment, Medication Time Out Ni OLIVARES MD, Verified (If Participants Gemma BRITO, Maggie Applicable) Ana Fenton CST, Julie A Time Out Complete 12/20/22 16:17:00 Allergies Reviewed? [...] 16:24 Maggie Menendez RN 12/20/22 16:29 Normal [facility] Main OR Preoperative Recordo n 12-20-2022 Main OR Preoperative Record Holding Area Document Type FTURO Summary Primary Physician: Ni OLIVARES MD Finalized Date/Time: 12/20/22 15:39:13 Pt. Name: VICTORINO SMYTH/Sex: 1940 Male Med Rec #: [id number] Physician: Ni OLIVARES MD Financial #: [id number] Pt. Type: O Room/Bed: / Admit/Disch: 12/20/22 [...] By: Janay Gonzales RN 12/20/22 15:39 Normal [facility] Operative Reporton Operative Report Patient: SHERYL [...] considering a repeat 24-hour urine/metabolic work-up. Normal [facility] Comment on above: Result Comment: Elec tronically Signed By: Ni OLIVARES MD\.br\Date and Time Signed: 12/20/22 16:29 EDT Outpatient Surgery Discharge Instructionon 12-20-2022 Outpatient Surgery Discharge Instruction [address] [address] Patient Discharge Instructions PERSON INFORMATION [...] Follow up: With: Address: When: Ni OLIVARES [address] [place] [address], [address], [address] [address] Business (1) Within 6 months Comments: Call for [...] you have a fever over 100 degrees. HAJA Gibbons BERNARD M, have received the attached patient education materials/instructions and have verbalized understanding: May we do a follow up call? Yes No I was present when discharge instructions were given Patient Signature _ Date Clinican/Nurse Signature Date You may receive a survey from [employer] asking you to rate your care experience. Your feedback is important and will help us understand what we do well and how we can improve the quality of care we provide to you, your loved ones and our community. It?s an honor to serve you. Thank you for choosing [facility] Normal [facility] Postoperative Documentson Postoperative Documents [id number]:127 Normal [facility] Calculus Analysison 12-09-19 23 Color (Stone) Olsen Invalid Interpretation Code [facility] Comment on above: Performed By: #### 2 [id number] #### [facility] [address] [place] [address] Composition Comment Invalid Interpretation Code [facility] Comment on above: Result Comment: Perc entage (Represents the % composition) Performed By: #### 2 [id number] #### [facility] [address] [id number] Disclaimer: Comment Invalid Interpretation Code [facility] Comment on above: Result Comment: This test was developed and its performance characteristics determined by [facility]. It has not been cleared or approved by the Food and Drug Administration. Performed at: [address] [id number] PhD Jarvis Bauman Performed By: #### 2 [id number] #### [facility] [address] [id number] Laboratory comment Dangelo (Report) Comment Invalid Interpretation Code [facility] Comment on above: Result Comment: Padmini gutierrez questions regarding Calculi Analysis contact [employer] at: [phone]. Performed By: #### 2 [id number] #### [facility] [address] [id number] Please Note: Comment Invalid Interpretation Code [facility] Comment on above: Result Comment: Calc salazar report will follow via computer, mail or used car make ready mechanic delivery. Performed By: #### 2 [id number] #### [facility] [address] [place] [address] Size (Stone) [Entitic vol] 3x5 Invalid Interpretation Code [facility] Comment on above: Result Comment: Mult iple pieces received. Dimensions of the largest piece reported. Performed By: #### 2 [id number] #### [facility] [address] [place] [address] Specimen source subject Nom Comment Invalid Interpretation Code [facility] Comment on above: Result Comment: Righ t Ureter Performed By: #### 2 [id number] #### [facility] [address] [place] [address] Stone Photo Comment Invalid Interpretation Code [facility] Comment on above: Result Comment: Phot ograph will follow under a separate cover Performed By: #### 2 [id number] #### [facility] [address] [place] [address] Urate (Stone) [Mass fraction] 100 % Invalid Interpretation Code [facility] Comment on above: Performed By: #### 2 [id number] #### [facility] [address] [place] [address] Weight (Stone) 131 mg Invalid Interpretation Code [facility] Comment on above: Performed By: #### 2 [id number] #### [facility] [address] [place] [address] Pre-Certification Formon Pre-Certification Form [id number]#1.00CD:127 Normal [facility] IntraOperative Documentson 0 12-06-2022 IntraOperative Documents [id number]#1.00CD:127 [facility] Consent for Anesthesiaon Consent for Anesthesia [id number]#1.00CD:127 [facility] Discharge Instructionson Discharge Instructions [id number]#1.00CD:127 Normal [facility] IntraOperative Documentson 0 12-03-2022 IntraOperative Documents [id number]#1.00CD:127 [facility] IntraOperative Documents [id number]#1.00CD:127 [facility] Main OR Intraoperative Recor don 12-03-2022 Main OR Intraoperative Record Normal [facility] Preoperative Documentson Preoperative Documents [id number]#1.00CD:127 Normal [facility] Preoperative Documents [id number]#1.00CD:127 Normal [facility] Preoperative Documents [id number]#1.00CD:127 Normal [facility] Progress Note-Physicianon Progress Note-Physician Patient: VICTORINO [...] meets criteria ( To home ). 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 / Confirmed Chronic obstructive pulmonary disease (COPD) / SNOMED CT 74868497 / Confirmed Coronary artery disease / SNOMED CT 96698970 / Confirmed Anticoagulated / SNOMED CT 941222446 / Confirmed Erectile dysfunction / SNOMED CT 6581160060 / Confirmed Flank pain / SNOMED CT 723848100 / Confirmed H/O: hypothyroidism / SNOMED CT 660975553 / Confirmed Hydronephrosis / SNOMED CT 83124141 / Confirmed Hydronephrosis with ureteral calculus / SNOMED CT 0360527271 / Confirmed Hyperlipidemia / SNOMED CT 59709087 / Confirmed Hyperplastic colon polyp / SNOMED CT 0170873902 / Confirmed Hypertension / SNOMED CT 4878178425 / Confirmed Kidney stone / SNOMED CT 264109246 / Confirmed Prostate cancer / SNOMED CT 7322922817 / Confirmed Myocardial infarct / SNOMED CT 37702681 / Confirmed BPH associated with nocturia / SNOMED CT 8374007689 / Confirmed Occult blood in stools / SNOMED CT 73282996 / Confirmed Postprandial diarrhea / SNOMED CT 21522552 / Confirmed Elevated PSA / SNOMED CT 9219399990 / Confirmed Urinary retention / SNOMED CT 835484364 / Confirmed Rheumatoid arthritis / SNOMED CT 515476176 / Confirmed DM (diabetes mellitus), type 2 / SNOMED CT 870634769 / Confirmed Ureteral stone / SNOMED CT 16550051 / Confirmed Histories Procedure history: ESWL of kidney (98119108) on 10/07/2022 at 82 Years. Transurethral resection of prostate (513783973) on 08/01/2019 at 79 Years. Biopsy of prostate (536917471) on 07/04/2019 at 78 Years. cystoscopy, bilateral, ureteroscopy, laser lithotripsy on 06/27/2019 at 78 Years. TRIGGER FINGER RELEASE. Neuroplasty and/or transposition; median nerve at carpal tunnel (87202). Percutaneous transluminal coronary angioplasty; single major coronary artery or branch (65367). Patient has a coronary artery stent (Peri2) [...] in 1978 - 11/18/2022 11:04 - [facility], [place] . Physical Examination Airway: Mallampati classification: II (soft palate, fauces, uvula visible). Respiratory: adequate air exchange. Cardiovascular: Regular rhythm. Plan [place] [employer]esthesi[employer] (ASA) physical status classification: Class III. Anesthetic Preoperative Plan: Anesthesia General. Normal [facility] Comment on above: Result Comment: Elec tronically Signed By: Reji Hidalgo DO, Ty Khanna\ashley\Date and Time Signed: 12/03/22 08:21 EDT Capillary Glucose POCon Glucose [Mass/Vol] 82 mg/dL Normal 55-99 [facility] Comment on above: Result Comment: Jackelin quach RN/ Performed By: #### 2 [id number] #### [facility] [address] [place] [address] Consent for Procedure/Surger yon 12-02-2022 Consent for Procedure/Surgery [id number]#1.00CD:127 Normal [facility] Consent for Treatmenton Consent for Treatment [id number]#1.00CD:127 Normal [facility] Discharge Instructionson Discharge Instructions SMYTHVICTORINO :1940 Visit Date:12/02/2022 Inpatient Discharge Instructions Your [...] When: Comments: Call for followup appointment Where: [address] [place] [address]- [facility] (1) Medications What How Much When Instructions Next Dose New doxycycline (doxycycline hyclate 100 mg Cap) 1 Capsules By Mouth 2 times a day Duration: 5 Days Pickup at [facility] #51519 Unchanged albuterol (Ventolin Diskus) 2 Puffs Inhalation [...] needed for Itching Pharmacy Information [id number]: [address], [place] [id number] [phone] Allergies ciprofloxacin (Rash) levothyroxine (Mouth swelling) liothyronine (Mouth (more content not included)... Normal [facility] Comment on above: Result Comment: Elec tronically Signed By: Shae BRITO, Jazmin Eli\.ruba\Date and Time Signed: 12/02/22 12:25 EDT H&P Updateon 12-02-2022 H&P Update [id number]#1.00CD:127 Normal [facility] Inpatient Patient Summaryon 12-02-2022 Inpatient Patient Summary [address] [address] [facility] Clinical Discharge Instructions PERSON INFORMATION Name: VICTORINO SMYTH [facility]#:[id number] PHYSICIANS Admitting Physician: iN OLIVARES MD Attending Physician: Ni OLIVARES MD PCP: Erum OLIVEROS, Tray Anderson Diagnosis: Comment: PATIENT EDUCATION INFORMATION Instructions: Agcm-Rrcd-qd Utereroscopy,Lithotripsy, Stone Extraction, Stent Placement (Custom) Medication Leaflets: Follow up: With: Address: When: Ni MARSHALL [address], [address], [employer] [address] [place], [place] [id number] Business (1) Comments: Call for followup appointment MEDICATION LIST New Medications [id number], [address], [place] [id number], [phone] doxycycline (doxycycline hyclate 100 mg Cap) 1 [...] Itching., apply to chin, and forhead Comment: Normal [facility] Main OR PACU I Recordon Main OR PACU I Record PACU Phase I Docum ent Type FT Summary Primary Physician: Ni OLIVARES MD Finalized Date/Time: 12/02/22 12:58:10 Pt. Name: VICTORINO SMYTH/Sex: 1940 Male Med Rec #: [id number] Physician: Ni OLIVARES MD Financial #: [id number] Pt. Type: A Room/Bed: [facility]/ Admit/Disch: 12/02/22 09:31:57 - Institution: Case Times [...] By: Piedad Blanco RN 12/02/22 12:58 Normal [facility] Main OR PACU II Recordon Main OR PACU II Record PACU Phase II Doc ument Type FT Summary Primary Physician: Ni OLIVARES MD Finalized Date/Time: 12/02/22 13:45:57 Pt. Name: VICTORINO SMYTH/Sex: 1940 Male Med Rec #: [id number] Physician: Ni OLIVARES MD Financial #: [id number] Pt. Type: A Room/Bed: Admit/Disch: 12/02/22 09:31:57 - Institution: Case Times [...] By: Jazmin Kaufman RN 12/02/22 13:45 Normal [facility] Main OR Preoperative Recordo n 12-02-2022 Main OR Preoperative Record PreOp Document Type FT Summary Primary Physician: Ni OLIVARES MD Finalized Date/Time: 12/02/22 11:00:33 Pt. Name: SMYTHVICTORINO/Sex: 1940 Male Med Rec #: [id number] Physician: Ni OLIVARES MD Financial #: [id number] Pt. Type: A Room/Bed: [address] [address] Admit/Disch: 12/02/22 09:31:57 - Institution: Case Times [...] By: Soraya Borrego RN 12/02/22 11:00 Normal [facility] Monitor Recordon 12-02-2022 Monitor Record [id number]#1.00CD:127 Normal [facility] Monitor Record [id number]#1.00CD:127 Normal [facility] Operative Reporton 3 Operative Report Patient: [...] jelly placed per urethra. A well-lubricated 22 [place] is urethroscope with 30 degree lens then [...] backloaded over the wire and a 4.7 [place] Bard inlay double-J stent is passed into [...] ml. Complications: None. Anesthesia type: General. Normal [facility] Comment on above: Result Comment: Elec tronically Signed By: Ni OLIVARES MD\.br\Date and Time Signed: 12/02/22 11:51 EDT Outpatient Surgery Discharge Instructionon 12-02-2022 Outpatient Surgery Discharge Instruction [address] [id number] Patient Discharge Instructions PERSON INFORMATION Name: VICTORINO SMYTH Bryan Date of : 1940 Current Date: 12/02/2022 [...] THE NEAREST EMERGENCY ROOM OR CALL 911 I, VICTORINO SMYTH, have received the attached patient education materials/instructions and have verbalized understanding: May we do a follow up call? Yes No I was present when discharge instructions were given ____ Patient Signature _ Date Clinican/Nurse Signature Date Follow up: With: Address: When: Ni [address]IVARES [address], [facility] [address] [place] [address] [facility] (1) Comments: Call for followup appointment [...] to serve you. Thank you for choosing [facility] HERE ARE THE MEDICATION CHANGES THAT OCCURRED DURING YOUR HOSPITAL STAY New Medications [id number], [address], [place] [id number], [phone] doxycycline (doxycycline hyclate 100 mg Cap) 1 [...] forhead PATIENT EDUCATION INFORMATION Instructions: [facility] [place], [place] Dr. Ni Omalley Post-operative Instructions for [...] swelling, kidn (more content not included)... Normal [facility] Patient Education - Texton 0 12-02-2022 [...] MDI an (more content not included)... Normal [facility] XR Abdomen 1 Viewon 12-03-19 XR Abdomen 1 View Exam Date/Time: 12/02/2022 [...] in mGy = na DAP = na [facility] Consultation Noteon 11-29-19 Consultation Note [id number]#1.00CD:127 [facility] Outside Recordson 11-24-2022 Outside Records [id number]#1.00CD:127 [facility] C Urineon 11-20-2022 Bacteria identified Cx Nom (U) Microbiology PROCEDURE: Urine Culture [R1] SOURCE: U CleanCatch BODY SITE: COLLECTED DATE/TIME: 11/18/2022 11:28 EDT RECEIVED DATE/TIME: 11/18/2022 12:27 EDT START DATE/TIME: 11/18/2022 12:27 EDT FREE TEXT SOURCE: MARSHALL OLIVEROS, Ni OLIVARES MD, Ni Garcia FINAL REPORTS Final Report [] Verified Date/Time: 11/20/2022 06:45 EDT 1,000 cfu/ml Mixed skin contaminants Performing Locations R1: This test was performed at: [facility], [address] [place] [address], [address] , , Normal [facility] Comment on above: Performed By: #### 1 [id number] ####[facility] [address] [place] [address] Albuminon 11-18-2022 Albumin [Mass/Vol] 4.0 g/dL Normal 3.3-5.0 [facility] Comment on above: Performed By: #### 2 [id number], 5201403, 9685062, 93062235, 694593955, 4745876, 8831778, 7633765, 7409278 ####[facility] [address] [place] [address] Auto Diffon 11-18-2022 Basophils/100 WBC (Bld) 0.2 % Normal 0.0-2.0 [facility] Comment on above: Order Comment: Order Added by Discern Expert. Performed By: #### 2 [id number] #### [facility] [address] [place] [address] Basophils/Leukocytes Auto (Bld) [Pure # fraction] 0.0 E9/L Normal 0.0-0.2 [facility] Comment on above: Order Comment: Order Added by Discern Expert. Performed By: #### 2 [id number] #### [facility] [address] [place] [address] Eosinophils/100 WBC (Bld) 0.1 % Normal 0.0-8.0 [facility] Comment on above: Order Comment: Order Added by Discern Expert. Performed By: #### 2 [id number] #### [facility] [address] [place] [address] Eosinophils/Leukocytes Auto (Bld) [Pure # fraction] 0.0 E9/L Normal 0.0-0.5 [facility] Comment on above: Order Comment: Order Added by Discern Expert. Performed By: #### 2 [id number] #### [facility] [address] [place] [address] Lymphocytes/100 WBC (Bld) 8.6 % Low 14.0-50.0 [facility] Comment on above: Order Comment: Order Added by Discern Expert. Performed By: #### 2 [id number] #### [facility] [address] [place] [address] Lymphocytes/Leukocytes Auto (Bld) [Pure # fraction] 0.9 E9/L Low 1.0-4.0 [facility] Comment on above: Order Comment: Order Added by Discern Expert. Performed By: #### 2 [id number] #### [facility] [address] [place] [address] Monocytes/100 WBC (Bld) 7.1 % Normal 4.0-14.0 [facility] Comment on above: Order Comment: Order Added by Discern Expert. Performed By: #### 2 [id number] #### [facility] [address] [place] [address] Monocytes/Leukocytes Auto (Bld) [Pure # fraction] 0.7 E9/L Normal 0.2-1.0 [facility] Comment on above: Order Comment: Order Added by Discern Expert. Performed By: #### 2 [id number] #### [facility] [address] [place] [address] Neutrophils/100 WBC (Bld) 84.0 % High 36.0-75.0 [facility] Comment on above: Order Comment: Order Added by Discern Expert. Performed By: #### 2 [id number] #### [facility] [address] [place] [address] Neutrophils/Leukocytes Auto (Bld) [Pure # fraction] 8.7 E9/L High 2.0-7.5 [facility] Comment on above: Order Comment: Order Added by Discern Expert. Performed By: #### 2 [id number] #### [facility] [address] [place] [address] BMPon 11-18-2022 Anion gap [Moles/Vol] 12 mmol/L Normal 6-16 [facility] Comment on above: Performed By: #### 2 [id number] #### [facility] [address] [place] [address] Calcium [Mass/Vol] 9.3 mg/dL Normal 8.9-11.1 [facility] Comment on above: Performed By: #### 2 [id number] #### [facility] [address] [place] [address] Chloride [Moles/Vol] 109 mmol/L Normal 101-111 [facility] Comment on above: Performed By: #### 2 [id number] #### [facility] [address] [place] [address] CO2 [Moles/Vol] 24 mmol/L Normal 21-31 [facility] Comment on above: Performed By: #### 2 [id number] #### [facility] [address] [place] [address] Creatinine [Mass/Vol] 2.5 mg/dL High 0.5-1.3 [facility] Comment on above: Performed By: #### 2 [id number] #### [facility] [address] [place] [address] Glucose [Mass/Vol] 130 mg/dL Normal 55-199 [facility] Comment on above: Result Comment: If t his glucose result represents a fasting glucose, interpretation should refer to the following reference range: 55-99 mg/dL Performed By: #### 2 [id number] #### [facility] [address] [place] [address] Potassium [Moles/Vol] 4.8 mmol/L Normal 3.5-5.3 [facility] Comment on above: Performed By: #### 2 [id number] #### [facility] [address] [place] [address] Sodium [Moles/Vol] 140 mmol/L Normal 135-145 [facility] Comment on above: Performed By: #### 2 [id number] #### [facility] [address] [place] [address] Urea nitrogen [Mass/Vol] 38 mg/dL High 5-21 [facility] Comment on above: Performed By: #### 2 [id number] #### [facility] [address] [place] [address] Urea nitrogen/Creatinine [Mass ratio] 15 No Units Normal 10-20 [facility] Comment on above: Performed By: #### 2 [id number] #### [facility] [address] [place] [address] CBC w/ Auto Diffon 3 Erythrocyte distribution width (RBC) [Ratio] 13.5 % Normal 10.9-14.2 [facility] Comment on above: Performed By: #### 2 [id number] #### [facility] [address] [place] [address] Hematocrit (Bld) [Volume fraction] 34.9 % Low 37.7-49.0 [facility] Comment on above: Performed By: #### 2 [id number] #### [facility] [address] [place] [address] Hemoglobin (Bld) [Mass/Vol] 11.7 g/dL Low 13.5-17.5 [facility] Comment on above: Performed By: #### 2 [id number] #### [facility] [address] [place] [address] MCH (RBC) [Entitic mass] 32.1 pg Normal 27.0-34.0 [facility] Comment on above: Performed By: #### 2 [id number] #### [facility] [address] [place] [address] MCHC (RBC) [Mass/Vol] 33.6 g/dL Normal 31.4-36.0 [facility] Comment on above: Performed By: #### 2 [id number] #### [facility] [address] [place] [address] MCV (RBC) [Entitic vol] 95.4 fL Normal 80.0-100.0 [facility] Comment on above: Performed By: #### 2 [id number] #### [facility] [address] [place] [address] Platelet mean volume (Bld) [Entitic vol] 8.7 fL Normal 6.4-10.8 [facility] Comment on above: Performed By: #### 2 [id number] #### [facility] [address] [place] [address] Platelets (Bld) [#/Vol] 214.0 E9/L Normal 150.0-500. 0 [facility] Comment on above: Performed By: #### 2 [id number] #### [facility] [address] [place] [address] RBC (Bld) [#/Vol] 3.7 E12/L Low 4.3-5.9 [facility] Comment on above: Performed By: #### 2 [id number] #### [facility] [address] [place] [address] WBC corrected for nucl RBC Auto (Bld) [#/Vol] 10.4 E9/L Normal 4.0-11.0 [facility] Comment on above: Performed By: #### 2 [id number] #### [facility] [address] [place] [address] Consent for Treatmenton 10-26 Consent for Treatment [id number]#[id number]:127 Normal [facility] Consent for Treatment [id number]#1.00CD:127 Normal [facility] Ferritinon 11-18-2022 Ferritin [Mass/Vol] 192 ng/mL Normal 24-336 [facility] Comment on above: Result Comment: NORM ALS MEN <30 YRS 16-132 ng/mL MEN >30 YRS 8-338 ng/mL WOMEN (PREMEN) 6-104 ng/mL WOMEN (POSTMEN) 12-210 ng/mL Performed By: #### 2 245102, 0034236, 9871949, 14770711, 030771995, 1612725, 5041714, 3683301, 6330831 ####[facility] [address] [place] [address] Folateon 11-18-2022 Folate [Mass/Vol] ng/mL Normal >=6.7 [facility] Comment on above: Performed By: #### 2 338569, 7572373, 3185128, 65294617, 245967603, 7423578, 8910127, 3565732, 1423337 ####[facility] [address] [place] [address] Ironon 11-18-2022 Iron [Mass/Vol] 102 microgram/dL Normal 35-153 [facility] Comment on above: Performed By: #### 2 558995, 5239559, 5851504, 60740517, 080651805, 7444573, 4183828, 2916198, 5308223 ####[facility] [address] [place] [address] PT & PTTon 11-18-2022 aPTT Coag (PPP) [Time] 27.1 second(s) Normal 25.1-36.5 [facility] Comment on above: Result Comment: Para [...] the same coagulation reagent and instrumentation as [facility]. Currently there are no coagulation studies available worldwide for children to 14 days, and no normal ranges. Heparin therapeutic range (represented by Anti-Factor Xa activity of 0.2 - 0.4 U/mL) corresponds to PTT of 56.6 - 109.0 sec. Performed By: #### 2 [id number] #### [facility] [address] [place] [address] INR Coag (PPP) [Relative time] 1.1 {INR} Invalid Interpretation Code [facility] Comment on above: Result Comment: INR results are specifically intended to assess patients stabilized on long-term Anticoagulation therapy suggested INR?s ?Less Intensive Anticoagulation? 2.0 ? 3.0 Conventional Range 3.0 ? 4.5 Performed By: #### 2 [id number] #### [facility] [address] [place] [address] PT Coag (PPP) [Time] 11.9 second(s) Normal 9.4-12.5 [facility] Comment on above: Result Comment: 15 [...] the same coagulation reagent and instrumentation as [facility]. Currently there are no coagulation studies available worldwide for children to 14 days, and no normal ranges. Performed By: #### 2 [id number] #### [facility] [address] [place] [address] Phosphoruson 11-18-2022 Phosphate [Mass/Vol] 4.4 mg/dL Normal 1.9-4.6 [facility] Comment on above: Performed By: #### 2 106170, 3223965, 5878491, 04230985, 887438282, 5635715, 5702209, 5893245, 2941717 ####[facility] [address] [place] [address] Physician Orderon 11-18-2022 Physician Order [id number]#[id number]:127 Normal [facility] TIBC Calculatedon 11-18-2022 Iron binding capacity [Mass/Vol] 292 microgram/dL Normal 250-400 [facility] Comment on above: Performed By: #### 2 352183, 7878593, 4454965, 19970792, 754477788, 8597492, 0423578, 8410179, 6265254 ####[facility] [address] [place] [address] Transferrin [Mass/Vol] 208 mg/dL Normal 200-370 [facility] Comment on above: Performed By: #### 2 813957, 6281071, 7256978, 86055787, 147017721, 1346677, 4737488, 4870113, 0950617 ####[facility] [address] [place] [address] U Protein/Creat Ratioon 10-26 Albumin Elph (U) [Mass fraction] 25.2 mg/dL Invalid Interpretation Code [facility] Comment on above: Result Comment: The reference range and other method performance specifications have not been established for this test; results should be integrated into the clinical context for interpretation. Performed By: #### 1 [id number] #### [facility] [address] [place] [address] Creatinine (U) [Mass/Vol] 80.6 mg/dL Invalid Interpretation Code [facility] Comment on above: Result Comment: The reference range and other method performance specifications have not been established for this test; results should be integrated into the clinical context for interpretation. Performed By: #### 1 [id number] #### [facility] [address] [place] [address] U Prot/Creat Ratio 312.70 mg/gm Cr High .00-200.00 [facility] Comment on above: Performed By: #### 1 [id number] #### [facility] [address] [place] [address] UA With Cult Reflexon 2022 Bilirubin Ql (U) Negative Normal Negative [facility] Comment on above: Performed By: #### 1 [id number], [id number] #### [facility] [address] [place] [address] Clarity (U) CLEAR Normal Clear [facility] Comment on above: Performed By: #### 1 [id number], [id number] #### [facility] [address] [place] [address] Color (U) YELLOW Normal Yellow [facility] Comment on above: Performed By: #### 1 [id number], [id number] #### [facility] [address] [place] [address] Epithelial cells.squamous LM.HPF (Urine sed) [#/Area] 0-2 Normal 0-2 [facility] Comment on above: Performed By: #### 1 [id number], [id number] #### [facility] [address] [place] [address] Glucose Test strip (U) [Mass/Vol] Negative Normal Negative [facility] Comment on above: Performed By: #### 1 [id number], [id number] #### [facility] [address] [place] [address] Hemoglobin Ql (U) 3+ Abnormal Negative [facility] Comment on above: Performed By: #### 1 [id number], [id number] #### [facility] [address] [place] [address] Ketones (U) [Mass/Vol] Negative Normal Negative [facility] Comment on above: Performed By: #### 1 [id number], [id number] #### [facility] [address] [place] [address] Gravette.plasma/Gravette .RBC (Bld) [Mass ratio] >30 Abnormal 0-3 [facility] Comment on above: Performed By: #### 1 [id number], [id number] #### [facility] [address] [place] [address] Nitrite Ql (U) Negative Normal Negative [facility] Comment on above: Performed By: #### 1 [id number], [id number] #### [facility] [address] [place] [address] pH (U) 6.0 [pH] Invalid Interpretation Code 5.0-9.0 [facility] Comment on above: Performed By: #### 1 [id number], [id number] #### [facility] [address] [place] [address] Protein (U) [Mass/Vol] TRACE Abnormal Negative [facility] Comment on above: Performed By: #### 1 [id number], [id number] #### [facility] [address] [place] [address] Specific gravity (U) [Rel density] 1.020 Invalid Interpretation Code 1.005-1.03 0 [facility] Comment on above: Performed By: #### 1 [id number], [id number] #### [facility] [address] [place] [address] Type of Urine collection method Clean Catch Normal [facility] Comment on above: Performed By: #### 1 [id number], [id number] #### [facility] [address] [place] [address] Urobilinogen Qn (U) 0.2 {Wil'U}/dL Normal 0.0-1.0 [facility] Comment on above: Performed By: #### 1 [id number], [id number] #### [facility] [address] [place] [address] WBC Auto Ql (U) 1+ Abnormal Negative [facility] Comment on above: Performed By: #### 1 [id number], [id number] #### [facility] [address] [place] [address] WBC LM.HPF (Urine sed) [#/Area] 0-5 Normal 0-5 [facility] Comment on above: Performed By: #### 1 [id number], [id number] #### [facility] [address] [place] [address] Uric Acidon 11-18-2022 Urate [Mass/Vol] 7.0 mg/dL Normal 2.2-7.4 [facility] Comment on above: Performed By: #### 2 [id number], [id number], 3215889, 11597814, [id number], 0810536, 9702034, 7304269, 8314284 ####[facility] [address] [place] [address] Vit B12on 11-18-2022 Cobalamin (Vitamin B12) [Mass/Vol] 495 pg/mL Normal 50-1500 [facility] Comment on above: Performed By: #### 2 [id number], 7240650, 7443098, 92309288, [id number], 8984404, 2173262, 9405947, 5548480 ####[facility] [address] [place] [address] Vitamin D 25 Hydroxyon 11-18 25-hydroxyvitamin D3 [Mass/Vol] 64.8 ng/mL Normal 30.0-100.0 [facility] Comment on above: Result Comment: Vit grewal D deficiency has been defined as a level of serum 25-OH vitamin D less than 20 ng/mL (1,2) by the [place] [employer] and an Endocrine Society practice guideline. The Endocrine Society further defined vitamin D insufficiency as a level between 21 and 29 ng/mL (2). 1. IOM ([place] of [employer]). 2010. Dietary reference intakes for calcium and D. [place]: The National Academies Press. 2. Kortney MF, Candie NC, Ekaterina WEINBERG, et al. Evaluation, treatment, and prevention of vitamin D deficiency: an Endocrine Society clinical practice guideline. JCEM. 2010; 96 (7):1911-30. Performed By: #### 2 165189, 5838246, 8273765, 65129298, 131136196, 1032292, 9240930, 2671095, 5155437 ####[facility] [address] [place] [address] eGFRon 11-18-2022 GFR/1.73 sq M.predicted among non-blacks MDRD (S/P/Bld) [Vol rate/Area] 25 mL/min/1.73 m2 Low >=59 [facility] Comment on above: Order Comment: Order added by Discern Expert. 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 Kidney failure is indicated at less than 15 mL/min/1.73m2. Performed By: #### 2 [id number] #### [facility] [address] [place] [address] Office Visiton 11-17-2022 Follow-up visit [id number] Smyth,Ber sehela 1940 M Date Provider Department Center 11/17/2022 IRIS BLACKMAN [facility] Family History Problem Relation Age of Onset No Known Problems Mother No Known Problems Father Family Status - Relation Status Age at Mother Father Level of Service:[address] [place] OFFICE/OUTPATIENT ESTABLISHED MOD MDM 30-[address] [facility] Lab Reportson 11-12-2022 Lab Reports [id number]#1.00CD:127 Normal [facility] Lab Reports [id number]#1.00CD:127 Normal [facility] Lab Reports [id number]#1.00CD:127 Normal [facility] Lab Reports [id number]#1.00CD:127 Normal [facility] PSA, FREE AND TOTAL RATIOon 11-09-2022 % Free PSA 11.3 % Normal [facility] Comment on above: Result Comment: The [...] men. Performed By: #### P SAFREE #### [facility] [address] [place] [address] Dr. Alicia Patel Prostate specific Ag [Mass/Vol] 4.6 ng/mL Critically high 0.0-4.0 [facility] Comment on above: Result Comment: Dwight JUAREZ methodology. . According to the [place] [employer], Serum PSA should decrease and [...] disease. Performed By: #### P SAFREE #### [facility] [address] [place] [address] Dr. Alicia Patel PSA, Free 0.52 ng/mL Normal N/A [facility] Comment on above: Result Comment: Dwight linares ECLWAYNE methodology. Performed By: #### P SAFREE #### [facility] [address] [place] [address] Dr. Alicia Patel INSULINon 11-08-2022 Insulin 18.5 uIU/mL Normal 2.6-24.9 [facility] Comment on above: Performed By: #### T SH, LIPID, T4, FT3, CMP #### [facility] [address] [place] [address] Dr. Alicia Patel CBC AUTO DIFFon 11-06-2022 BASO # 0.0 103/ul Normal 0.0-0.1 [facility] Comment on above: Performed By: #### C BC #### [facility] [address] [place] [address] Dr. Alicia Patel Basophils/100 WBC (Bld) 0.4 % Normal 0.2-2.0 [facility] Comment on above: Performed By: #### C BC #### [facility] [address] [place] [address] Dr. Alicia Patel EO # 0.2 103/ul Normal 0.0-0.7 [facility] Comment on above: Performed By: #### C BC #### [facility] [address] [place] [address] Dr. Alicia Patel Eosinophils/100 WBC (Bld) 4.6 % Normal 0.9-7.0 [facility] Comment on above: Performed By: #### C BC #### [facility] [address] [place] [address] Dr. Alicia Patel Erythrocyte distribution width (RBC) [Ratio] 13.2 % Normal 11.0-15.0 [facility] Comment on above: Performed By: #### C BC #### [facility] [address] [place] [address] Dr. Alicia Patel Hematocrit (Bld) [Volume fraction] 34.6 % Critically low 42.0-54.0 [facility] Comment on above: Performed By: #### C BC #### [facility] [address] [place] [address] Dr. Alicia Patel Hemoglobin (Bld) [Mass/Vol] 11.4 g/dL Critically low 14.0-18.0 [facility] Comment on above: Performed By: #### C BC #### [facility] [address] [place] [address] Dr. Alicia Patel IG # 0.03 10e3/ul Normal 0.00-0.03 [facility] Comment on above: Performed By: #### C BC #### [facility] [address] [place] [address] Dr. Alicia Patel IG % 0.6 % Critically high 0.0-0.5 [facility] Comment on above: Performed By: #### C BC #### [facility] [address] [place] [address] Dr. Alicia Patel LYMPH # 0.9 103/ul Critically low 1.2-3.8 [facility] Comment on above: Performed By: #### C BC #### [facility] [address] [place] [address] Dr. Alicia Patel Lymphocytes/100 WBC (Bld) 16.3 % Critically low 20.5-60.0 [facility] Comment on above: Performed By: #### C BC #### [facility] [address] [place] [address] Dr. Alicia Patel MANUAL DIFF REQ NO Normal [facility] Comment on above: Performed By: #### C BC #### [facility] [address] [place] [address] Dr. Alicia Patel MCH (RBC) [Entitic mass] 32.9 pg Normal 25.9-34.0 [facility] Comment on above: Performed By: #### C BC #### [facility] [address] [place] [address] Dr. Alicia Patel MCHC (RBC) [Mass/Vol] 32.9 g/dL Normal 29.9-35.2 [facility] Comment on above: Performed By: #### C BC #### [facility] [address] [place] [address] Dr. Alicia Patel MCV (RBC) [Entitic vol] 99.7 fL Critically high 80.0-94.0 [facility] Comment on above: Performed By: #### C BC #### [facility] [address] [place] [address] Dr. Alicia Patel MONO # 0.6 103/ul Normal 0.3-0.8 [facility] Comment on above: Performed By: #### C BC #### [facility] [address] [place] [address] Dr. Alicia Patel Monocytes/100 WBC (Bld) 12.0 % Normal 1.7-12.0 [facility] Comment on above: Performed By: #### C BC #### [facility] [address] [place] [address] Dr. Alicia Patel NEUT # 3.5 103/ul Normal 1.4-6.5 [facility] Comment on above: Performed By: #### C BC #### [facility] [address] [place] [address] Dr. Alicia Patel Neutrophils/100 WBC (Bld) 66.1 % Normal 43.0-75.0 [facility] Comment on above: Performed By: #### C BC #### [facility] [address] [address] [address] Alicia Patel Platelet mean volume (Bld) [Entitic vol] 10.1 fL Normal 9.5-13.5 [facility] Comment on above: Performed By: #### C BC #### [facility] [address] [place] [address] Dr. Alicia Patel PLT 168 103/ul Normal 150-450 [facility] Comment on above: Performed By: #### C BC #### [facility] [address] [place] [address] Dr. Alicia Patel RBC 3.47 106/ul Critically low 4.70-6.10 [facility] Comment on above: Performed By: #### C BC #### [facility] [address] [place] [address] Dr. Alicia Patel WBC 5.2 103/ul Normal 4.0-11.0 [facility] Comment on above: Performed By: #### C BC #### [facility] [address] [place] [address] Dr. Alicia Patel FREE T3on 11-06-2022 FREE T3 2.78 pg/mlL Normal 2.18-3.98 [facility] Comment on above: Performed By: #### U RTPCR #### [facility] [address] [place] [address] Dr. Alicia Patel GLYCOHEMOGLOBIN A1Con 2022 ADA RECOMMENDATION SEE BELOW Normal [facility] Comment on above: Result Comment: ADA RECOMMENDED LIMIT 4.0 - 6.0 ADA THERAPEUTIC TARGET < 7.0 ACTION SUGGESTED > 7.0 Performed By: #### T SH, LIPID, T4, FT3, CMP #### [facility] [address] [address] [address] Alicia Patel Glucose [Mass/Vol] 120 mg/dL Normal [facility] Comment on above: Performed By: #### T SH, LIPID, T4, FT3, CMP #### [facility] [address] [address] [address] Alicia Patel HbA1c (Bld) [Mass fraction] 5.8 % Normal 4.5-6.2 [facility] Comment on above: Performed By: #### T SH, LIPID, T4, FT3, CMP #### [facility] [address] [address] [address] Alicia Patel LIPID PROFILEon 11-06-2022 CHOL-HDL RATIO NORM SEE BELOW Normal [facility] Comment on above: Result Comment: 3.3 - 4.4 LOW RISK 4.4 - 7.1 AVERAGE RISK 7.1 - 11.0 MODERATE RISK >11.0 HIGH RISK Performed By: #### U RTPCR #### [facility] [address] [place] [address] Dr. Alicia Patel Cholesterol [Mass/Vol] 107 mg/dL Normal <=200 [facility] Comment on above: Performed By: #### U RTPCR #### [facility] [address] [place] [address] Dr. Alicia Patel Cholesterol in HDL [Mass/Vol] 34 mg/dL Critically low 40-60 [facility] Comment on above: Performed By: #### U RTPCR #### [facility] [address] [place] [address] Dr. Alicia Patel Cholesterol in LDL [Mass/Vol] 58.8 mg/dL Normal [facility] Comment on above: Performed By: #### U RTPCR #### [facility] [address] [place] [address] Dr. Alicia Patel Cholesterol.total/Chol esterol in HDL [Mass ratio] 3.1 {ratio} Normal [facility] Comment on above: Performed By: #### U RTPCR #### [facility] [address] [place] [address] Dr. Alicia Patel HDL NORMAL > or = 60 mg/dl - LO W CARDIOVASCULAR RISK <40 mg/dl - HIGH CARDIOVASCULAR RISK Normal [facility] Comment on above: Performed By: #### U RTPCR #### [facility] [address] [address] [address] Alicia Patel LDL CALC NORMAL SEE BELOW Normal [facility] Comment on above: Result Comment: <100 mg/dl OPTIMAL 100 - 129 mg/dl NEAR OR ABOVE OPTIMAL 130 - 159 mg/dl BORDERLINE HIGH 160 - 189 mg/dl HIGH >190 mg/dl VERY HIGH Performed By: #### U RTPCR #### [facility] [address] [address] [address] Alicia Patel Triglyceride [Mass/Vol] 71 mg/dL Normal <=150 [facility] Comment on above: Performed By: #### U RTPCR #### [facility] [address] [place] [address] Dr. Alicai Patel VLDL CALC 14.2 mg/dL Normal [facility] Comment on above: Performed By: #### U RTPCR #### [facility] [address] [address] [address] Alicia Patel PROF 14(COMP METB)on 023 Albumin [Mass/Vol] 3.4 g/dL Normal 3.4-5.0 [facility] Comment on above: Performed By: #### T SH, LIPID, T4, FT3, CMP #### [facility] [address] [address] [address] Alicia Patel Albumin/Globulin [Mass ratio] 0.9 {ratio} Normal [facility] Comment on above: Performed By: #### T SH, LIPID, T4, FT3, CMP #### [facility] [address] [address] [address] Alicia Patel ALP [Catalytic activity/Vol] 75 U/L Normal 46-116 [facility] Comment on above: Performed By: #### T SH, LIPID, T4, FT3, CMP #### [facility] [address] [address] [address] Alicia Patel ALT [Catalytic activity/Vol] 31 U/L Normal 16-63 [facility] Comment on above: Performed By: #### T SH, LIPID, T4, FT3, CMP #### [facility] [address] [place] [address] Dr. Alicia Patel Anion gap [Moles/Vol] 14.4 mmol/L Normal Th e [facility] Comment on above: Performed By: #### T SH, LIPID, T4, FT3, CMP #### [facility] [address] [place] [address] Dr. Alicia Patel AST [Catalytic activity/Vol] 23 U/L Normal 15-37 [facility] Comment on above: Performed By: #### T SH, LIPID, T4, FT3, CMP #### [facility] [address] [place] [address] Dr. Alicia Patel Bilirubin [Mass/Vol] 0.5 mg/dL Normal 0.2-1.0 [facility] Comment on above: Performed By: #### T SH, LIPID, T4, FT3, CMP #### [facility] [address] [place] [address] Dr. Alicia Patel Calcium [Mass/Vol] 8.8 mg/dL Normal 8.5-10.1 [facility] Comment on above: Performed By: #### T SH, LIPID, T4, FT3, CMP #### [facility] [address] [place] [address] Dr. Alicia Patel Chloride [Moles/Vol] 110 mmol/L Critically high 98-107 [facility] Comment on above: Performed By: #### T SH, LIPID, T4, FT3, CMP #### [facility] [address] [place] [address] Dr. Alicia Patel CO2 [Moles/Vol] 24.2 mmol/L Normal 21.0-32.0 [facility] Comment on above: Performed By: #### T SH, LIPID, T4, FT3, CMP #### [facility] [address] [place] [address] Dr. Alicia Patel Creatinine [Mass/Vol] 2.41 mg/dL Critically high 0.70-1.30 [facility] Comment on above: Performed By: #### T SH, LIPID, T4, FT3, CMP #### [facility] [address] [place] [address] Dr. Alicia Patel EGFR-AF BELARUSIAN 32 mL/min/1.73m2 Critically low >=60 [facility] Comment on above: Performed By: #### T SH, LIPID, T4, FT3, CMP #### [facility] [address] [place] [address] Dr. Alicia Patel EGFR-NON AF BELARUSIAN 26 mL/min/1.73m2 Critically low >=60 [facility] Comment on above: Performed By: #### T SH, LIPID, T4, FT3, CMP #### [facility] [address] [place] [address] Dr. Alicia Patel Globulin (S) [Mass/Vol] 3.6 g/dL Normal [facility] Comment on above: Performed By: #### T SH, LIPID, T4, FT3, CMP #### [facility] [address] [place] [address] Dr. Alicia Patel Glucose [Mass/Vol] 72 mg/dL Critically low 74-106 [facility] Comment on above: Performed By: #### T SH, LIPID, T4, FT3, CMP #### [facility] [address] [place] [address] Dr. Alicia Patel Potassium [Moles/Vol] 4.6 mmol/L Normal 3.5-5.1 [facility] Comment on above: Performed By: #### T SH, LIPID, T4, FT3, CMP #### [facility] [address] [place] [address] Dr. Alicia Patel Protein [Mass/Vol] 7.0 g/dL Normal 6.4-8.2 [facility] Comment on above: Performed By: #### T SH, LIPID, T4, FT3, CMP #### [facility] [address] [place] [address] Dr. Alicia Patel Sodium [Moles/Vol] 144 mmol/L Normal 136-145 [facility] Comment on above: Performed By: #### T SH, LIPID, T4, FT3, CMP #### [facility] [address] [place] [address] Dr. Alicia Patel Urea nitrogen [Mass/Vol] 32.0 mg/dL Critically high 7.0-18.0 [facility] Comment on above: Performed By: #### T SH, LIPID, T4, FT3, CMP #### [facility] [address] [place] [address] Dr. Alicia Patel Urea nitrogen/Creatinine [Mass ratio] 13.3 mg/mg Normal [facility] Comment on above: Performed By: #### T SH, LIPID, T4, FT3, CMP #### [facility] [address] [place] [address] Dr. Alicia Patel T4on 11-06-2022 T4 [Mass/Vol] 7.90 ug/dL Normal 4.50-12.10 [facility] Comment on above: Performed By: #### T SH, LIPID, T4, FT3, CMP #### [facility] [address] [place] [address] Dr. Alicia Patel TSHon 11-06-2022 TSH 0.263 uIU/mL Critically low 0.358-3.74 0 [facility] Comment on above: Performed By: #### T SH, LIPID, T4, FT3, CMP #### [facility] [address] [place] [address] Dr. Alicia Patel URIC ACID SERUMon 11-06-2022 Urate [Mass/Vol] 7.3 mg/dL Critically high 3.5-7.2 [facility] Comment on above: Performed By: #### T SH, LIPID, T4, FT3, CMP #### [facility] [address] [place] [address] Dr. Alicia Patel Pre-Certification Formon Pre-Certification Form [id number]#[id number]:127 Normal [facility] ECHOCARDIO M/2D COMPLETEon 0 10-26-2022 ECHOCARDIO M/2D COMPLETE Patient: VICTORINO SMYTH Exam Date: 10/26/2022 : 1940 Gender:M Ordering : IRIS CORONEL Admission #: [id number] Family : DR TRAY ALFARO . Order #: [id number] CLICK HERE TO VIEW EXAM ECHOCARDIOGRAM REPORT [...] [place] M.D. on 10/28/2022 at 13:02 Normal [facility] MISCon 10-25-2022 [facility] [id number]#[id number]:127 Normal [facility] XR KUB 1 VIEWon 10-22-2022 XR [...] by: TYLER MONSIVAIS Date: 2022-10-22 09:12 Normal [facility] RAD - Ultrasound Reporton RAD - Ultrasound Report [id number]#[id number]:127 Normal [facility] US KIDNEYSon 10-18-2022 US KIDNEYS EXAMINATION: [...] by: TESS FORD Date: 2022-10-18 07:04 Normal [facility] IntraOperative Documentson 0 10-15-2022 IntraOperative Documents [id number]#1.00CD:127 Normal [facility] 37on 10-14-2022 37 Increase amlodipine back to 10 mg daily Increase Isosorbide to 120 mg daily ( 2 tabs) daily for chest pain Goal b/p is 130/80 or less Call office for continued chest pain/burning, shortness of breath, or call 911 for any worsening symptoms. Normal [facility] BNPon 10-14-2022 Natriuretic peptide B (Bld) [Mass/Vol] 300.0 pg/mL Normal <=1,800.0 [facility] Comment on above: Performed By: #### T SH, LIPID, T4, FT3, CMP #### [facility] [address] [place] [address] Dr. Alicia Patel CBC AUTO DIFFon 10-14-2022 BASO # 0.0 103/ul Normal 0.0-0.1 [facility] Comment on above: Performed By: #### T SH, LIPID, T4, FT3, CMP #### [facility] [address] [place] [address] Dr. Alicia aPtel Basophils/100 WBC (Bld) 0.6 % Normal 0.2-2.0 [facility] Comment on above: Performed By: #### T SH, LIPID, T4, FT3, CMP #### [facility] [address] [place] [address] Dr. Alicia Patel EO # 0.2 103/ul Normal 0.0-0.7 [facility] Comment on above: Performed By: #### T SH, LIPID, T4, FT3, CMP #### [facility] [address] [place] [address] Dr. Alicia Patel Eosinophils/100 WBC (Bld) 4.6 % Normal 0.9-7.0 [facility] Comment on above: Performed By: #### T SH, LIPID, T4, FT3, CMP #### [facility] [address] [place] [address] Dr. Alicia Patel Erythrocyte distribution width (RBC) [Ratio] 14.2 % Normal 11.0-15.0 [facility] Comment on above: Performed By: #### T SH, LIPID, T4, FT3, CMP #### [facility] [address] [place] [address] Dr. Alicia Patel Hematocrit (Bld) [Volume fraction] 36.1 % Critically low 42.0-54.0 [facility] Comment on above: Performed By: #### T SH, LIPID, T4, FT3, CMP #### [facility] [address] [place] [address] Dr. Alicia Patel Hemoglobin (Bld) [Mass/Vol] 11.8 g/dL Critically low 14.0-18.0 [facility] Comment on above: Performed By: #### T SH, LIPID, T4, FT3, CMP #### [facility] [address] [place] [address] Dr. Alicia Patel IG # 0.03 10e3/ul Normal 0.00-0.03 [facility] Comment on above: Performed By: #### T SH, LIPID, T4, FT3, CMP #### [facility] [address] [place] [address] Dr. Alicia Patel IG % 0.6 % Critically high 0.0-0.5 [facility] Comment on above: Performed By: #### T SH, LIPID, T4, FT3, CMP #### [facility] [address] [place] [address] Dr. Alicia Patel LYMPH # 1.1 103/ul Critically low 1.2-3.8 [facility] Comment on above: Performed By: #### T SH, LIPID, T4, FT3, CMP #### [facility] [address] [place] [address] Dr. Alicia Patel Lymphocytes/100 WBC (Bld) 22.6 % Normal 20.5-60.0 [facility] Comment on above: Performed By: #### T SH, LIPID, T4, FT3, CMP #### [facility] [address] [place] [address] Dr. Alicia Patel MANUAL DIFF REQ NO Normal [facility] Comment on above: Performed By: #### T SH, LIPID, T4, FT3, CMP #### [facility] [address] [place] [address] Dr. Alicia Patel MCH (RBC) [Entitic mass] 33.2 pg Normal 25.9-34.0 [facility] Comment on above: Performed By: #### T SH, LIPID, T4, FT3, CMP #### [facility] [address] [place] [address] Dr. Alicia Patel MCHC (RBC) [Mass/Vol] 32.7 g/dL Normal 29.9-35.2 [facility] Comment on above: Performed By: #### T SH, LIPID, T4, FT3, CMP #### [facility] [address] [place] [address] Dr. Alicia Patel MCV (RBC) [Entitic vol] 101.7 fL Critically high 80.0-94.0 [facility] Comment on above: Performed By: #### T SH, LIPID, T4, FT3, CMP #### [facility] [address] [place] [address] Dr. Alicia Patel MONO # 0.7 103/ul Normal 0.3-0.8 [facility] Comment on above: Performed By: #### T SH, LIPID, T4, FT3, CMP #### [facility] [address] [place] [address] Dr. Alicia Patel Monocytes/100 WBC (Bld) 13.8 % Critically high 1.7-12.0 [facility] Comment on above: Performed By: #### T SH, LIPID, T4, FT3, CMP #### [facility] [address] [place] [address] Dr. Alicia Patel NEUT # 2.9 103/ul Normal 1.4-6.5 [facility] Comment on above: Performed By: #### T SH, LIPID, T4, FT3, CMP #### [facility] [address] [place] [address] Dr. Alicia Patel Neutrophils/100 WBC (Bld) 57.8 % Normal 43.0-75.0 [facility] Comment on above: Performed By: #### T SH, LIPID, T4, FT3, CMP #### [facility] [address] [place] [address] Dr. Alicia Patel Platelet mean volume (Bld) [Entitic vol] 10.1 fL Normal 9.5-13.5 [facility] Comment on above: Performed By: #### T SH, LIPID, T4, FT3, CMP #### [facility] [address] [place] [address] Dr. Alicia Patel PLT 160 103/ul Normal 150-450 [facility] Comment on above: Performed By: #### T SH, LIPID, T4, FT3, CMP #### [facility] [address] [place] [address] Dr. Alicia Patel RBC 3.55 106/ul Critically low 4.70-6.10 [facility] Comment on above: Performed By: #### T SH, LIPID, T4, FT3, CMP #### [facility] [address] [place], [place] [address] Dr. Alicia Patel WBC 5.0 103/ul Normal 4.0-11.0 [facility] Comment on above: Performed By: #### T SH, LIPID, T4, FT3, CMP #### [facility] [address] [place], [place] [address] Dr. Alicia Patel Coding Summary.on 10-14-2022 Coding Summary. CD:[id number] Ww+PGh lYWQ+KB8PQWEmL26gsVUguZ5nM 0NMTElOSywgQVBQTElOSyIgbmF rZP1rjOWiOLSh IC8+YP2rNNQgRjejuRLcp7Z9zV O9Z82cqo8aYBlyzWO8LGUwOvDc slywc4osnIx7NMuwPkaeLtPn MJTthJ48QTY9zJ88Hf57rUBviK Tji1onsMv2YmYfHWZnMZC8xIgn BCjwh8DsUNWbS17itKVux0Y3 LKIecEsvaZEmXgRudUR3gQ1kAP kyxsagw5vaxhqgPzp4dl11zBGi p9M5jPK6P1ApjmL9WCDyzHVw QvoyrHCSzN2aiebzr9ojjtarDa SeYOTfZAm8DUk2TZYvdSxrZuQv HI13NQV1RDHzljRvU6ZnOITo vIjcOvB3w5P2Vj1YP7XRZvpdL9 VNTUFSWTwvdGQ+WD55yy08I2Ts PfngJyt1EUGjCZJ8jEV4bY5c FHThDArtw5I2kXL2H7DfibSpis 1yh4mfPYKfAPanR87kuWXcv6V8 LIKqzFU8DIMejShxUvDcjF10 Oyc+KZNbiHbxg3NbZsuws2vta6 orzBo5OmqoLYLgxyCmnOqkWHQ0 r7LfBp5dOISqaVV6hWU2oF3n KbLoXbC2EUbiX662DuBsiHHpFy wzG88aU1YxdPM+JNFnCsa8EGDg mYtbQS2oX6PfCWUjsrjraBPg bYevKS3jKYPtnbxfMFOmiH5gYV FcB6u8RmUbGbL3MJckF5KwEGIn cmebJl94rT0iOkVlTtQ0WSch T5AzlnW5VKEmlULhSXldVUD8S6 2ao6B3XFQvBOYrDJZ9fHS4uT3f bGlnbjogbGVmdDsgdmVydGlj BDsnZGfvO013TQDgoNcmFhEpYW luZyBEYXRlOiAgMDQvMjAvMjAy MzwvdGQ+URKdYWM9zPljVUAe jUWuFJrjOe3xwDbndDpzEG5xSD IavdepHBQplJ1cGVXgmLFgyZeo GK6zJTPubptbu676AfTxCPV3 XBNnhNZnN7XcnA2gLaQgOEKoHJ MnR7ShvMOaUSblR319XWpvOlE9 QGUlrrMkD3InZHKbsLgnYcA5 p9I9Mp9Hr7LzxhsbI2TafFOlUh FvCaoyRLw2N5NmTgkovUC+PC90 DNDaKL14RNg0OTF5eJhjDHfx MFBtN7YhpL4wArVvOUBgTGGjMp c+PHRhYmxlIHdpZHRoPScxMDAl ElVhkLhaRJ9dPu0mVSOrFMGl vYazgLGqHsZsk5oqZCPfDAtjJN 3imObkO9KghAQ6RHKoz3n6Nf37 J56vD1PhdCN+QTTmyZG3jGN0 zF6eHeInLkK7LHabS568LsOnbS NtIheyt6ldw4csiFn3BlP9XXPe dnNpuQvaORA8a6RoKg68D32h IHdpZHRoPSIxNSUiIHZhbGlnbj 5teM8fXp1+PSFbuBM0sQY1qX8h DxVjIpG4XYawZ382BqOjbEOf Twsml8jwu3rpoYd7MtQgVJMdut YanShnLET1m8MeMq13S6ZumSsd y9OlZjr2jj07eSUfe9W1jFJ8 N8KjAPKlfatcaSMtkXbcVV6yNE OcpllpALPfuH6eQBXjW4r3MaVv YcZ6XOheC4TtxbE6GURnlMWl NBKtnSNXsJ8hvgjla4sdgckcDe YgYRTxHPx0JGe9VNPkyMwwKkZp LYX7GyB9KOS6aKRxyF8vfHuc nkostQ0hLwp+HEL5rNNyaYEGSR 1lOjwvdGQ+PUXgJAF7oSmnBYsa OSRupF8kNMKgF4b0GtJbRtP8 DUgmM3MtmgZ5CREhbWBgAQBfjZ RVcN3hsldqq7llvvxeEtLsXWFj CAj4OXm9BNDdwYbpGbQkXDB4 VhI2ZDJ0sCFjuM3qbJlkrlazaH 9wOyc+IerxzDabAZM4VKa3K8Sh Jjs9MNFiiPttZM4qhCSvFEhr Dk1plTmdbLijMG4tWAIaccjpy2 06QbPqj7mgZTIzlLDoWYaaMFG0 N39nh5Q4DBMwBFLqQKO0lLN4 lL3ugJwqadgjsZKxhOixoaMtyT byIIpdXXhiL492ARSbtXdgAqJt JVh9G1DhOsy6YASveCbpFY9z lQNpPNbuIs2paVfepJhmVZ4oWZ Pmtqray760YlUjp5bgNBQiqPTl ZIaxDKK5U44uh9D4JSQaUEKe HAO1iIC8uD9lzCnqhwaljZZroN crtvFfkBacIGcgNPbvY760UZDh iFfzAvOekUv1M7JkZfv0GWVa hEguMY7uxXCfGJbkCz6rqBrfvA ibDX1lMVPewacfn235HdNjt0no VFNsnNZhJFbkDWG3C26xz0I2 LKTjDKRnTHD6eUF0dU8dlXlgyp ogbGVmdDsgdmVydGljYWwtYWxp Q825CUVyuQigQiMnjGxivnYp DFejWZe3Y4EhSjaeuTY+PC90YW PiAH05rRSnfTSnm7nqgOn3SoDh AVWpYHH9iFzfJNagg9AoCLKc V10ryUEnr1C0KASfdBszbYXySn GigYD6qK9iKIeyvvexd2zndsxz Uzdfi3zgvo90xZ18L17zJOgf DVHnCNVkTOYbTEHluQusaf8ymE 9wIi8+WRFufDB5jWE3uD4oXFZp WjP1NZtoS320AaGjhVEjJrpl y1pxh4rgcWt4DyT1RVUemwPdcQ xiMTW6r5YmRs93B99sVMkiSOLx AOIoDVVuALUvrVwpia9wjX1q Ii8+SRGddFV9gAE0cX1mZySdSg B0XDtdZ360SmYkaITyTpiuZ83w H3KozGU+JPXnSjy0DMGquEdl MJ1mzFApHDccSi7kDRT3EsFpEr FlEXlpO0AlVBFqbypxxhkyfFQ1 XRRyFKDovM03Gp0nwExsRDUv gGOVmD8nrldnw9epswawQjDfRJ PwLJo9VNl6KSNprJpnYgMhLLW7 YvC8CGL3nJSyxN8gaVloiscc xP3nZ0WpAVUdeapzYx09kI9mDv QiMaK1JJdhHza+YBCLVR2AEmyf GkQVGqJUKDOXHF39ME34xOVk k8Y5gSO2R9FdHFLwnvuafklawX R5SGInKTHwgG62dWVuTErwIg3q v3V5s125RBPsSOBlvT43Md7l cSupKITbsCVQcJ5msbxqq4bahz qaCuRsUWDaWDx7EBn1AZJnbMkm BdZpBIB6PqI7SUJ3hLGnaN4o fHetishaxY9kRhb+MDIvMDQvMT m9EmfboIA+IZLxERF1hNapYZuc VUNkhM2pCSObL1a2HtDoSeE8 CBtrI4PuQDMpdgepZy54nN2kXr DqEdH0UBurM6NzhrB8YPSrmENj UGvxLMA4L22mq9F8CYYuFYSg FRA8cUF9uR2sxBmizhhnrGXymD uzxwDgzElzYBidPQitB948TUMt dEtlLzftRKqtZIEmQO79KH34 sUVdw7O2rYQ2J7IbGUTnvspdvb dvbVI0HTYiMUJpkV89eJXzOUtc Qr8lf1W5y876NJHbWFOcdK91 Cn3snGypWRGptNQDsZ2wyhsea3 zjkvwbQgCyVOQdBXf3NRi2WHDt kZlzSyXfVDC5PlE6QNO0tDNv zE6hsLlaawlkoM0aGui+TWFsZT wvdGQ+OCMyEXJ3xFgqDQpaOIGs kN0kCMXsM3v5VfQoAzU6JZys U5BvVEVnvjskRu21cC9uFlOsJv Z6HSlbM6XudtI2DNHkjZPdQXxk DGB3H72je0I8ANHeNDDiZOY7 eTY2jJ2shNqnuiduaLDjmIdtoj WefUmfRGmnZTrqQ160XQJirRpj AjLbMxPxYWRbdferX6NvZMPM KTxnS6UnE5TyvQckhHX+PC90cj 29K0GjGopwDea2ZQYpVPC9gUK8 qR4xMLHoMTfyq0I6jNI9S4Af nyJzid4nq5srPCVtDPkiR86gjW Qys4H1DEFvwAW9ZLRedMheRxIv dF52Swb+GMUoxKfpm4McZcte v9bdr3dbdIe2TgYsFKXgzyXtrR syJWM2t2QrCj05W65zAMwiKQYw FXXvYJHiPQVcxQrfrn3hqP0s Ii8+YOPtlZR4iUB2iY3iSyPsRv C9KYqbD217BgQqyVXcZkncc7hl i8bwtMy5XtCiOGOiieEtsPho FFB5j3PaIi21L8MnxKyer3PqOr g3iy41uAAvr6H0oTB4Z5OpWVXc vnzpcJRufHwzPR1zHQIaiumg OEOczY8pXUGkM4k6PgAwGnV0GB yxL7YhtwQ6MLAfaZTzEPVtaKXM uD6sldbnl4tijvrjNgCkCSDe HOo9EBa6WPVafPjwNdYwCND0Eq X5RVZ5kBGywE8qmCbtreirqJ5e Oyc+JWp7i2oifYVfVW0ajJF6 OO78SK00kHNvk4F2dKR7H4EkJI KpczhwyiifbPG3ZASqYHCedQ05 Pt5xrIwvBp6uXRWwXND0ZPNa hNSiZ8DudW5eRmDnAWKuJHKyO5 AmlFHrPBbkT227YPmcAnN8KCZm ubOkF4GvZVTxuZtsMpZ3e9C9 Dq0ECS24XR92UX96yWNqb2O1qE B4D6TbLZXlpvelgxzliRP1DKZw TEQreG02Zs8gbJklDl3rSIYp LQK3YYBimJArL2MbpO2nJlMjRF XeODAzI1TtgTZzBBmlM100YMgj IcV5IOXxheHsH9IrMCDhpDrj Jrv0B1gUX1L6NiVIZrmrnmyhgv uQI4YZHiWHMnkS20Sr8ciWyk Bs2dWBKaKXY7TKFvzGDiV7TibF 5fMwLvUERtTYSsU0RztABdTDqr B934DIpvXyP7WMSvsiLhT9Yq PIZqvRnaObH6a5M1Un1ISMvbwa c6W5VuRszosJV+UZ29SHHqDM54 sRSciUUel8ltpQk7LiYeMSWc EHN4sSdw (more content not included)... Normal [facility] Office Visiton 10-14-2022 Follow-up visit [id number] Ruben Smyth 1940 M Date Provider Department Center 10/14/2022 IRIS BLACKMAN [facility] Family History Problem Relation Age of Onset No Known Problems Mother No Known Problems Father Family Status - Relation Status Age at Mother Father Level of Service:97584 [place] OFFICE/OUTPATIENT ESTABLISHED MOD MDM 30-39 MIN Reason for Visit and Comments: Chest Pain [641787] Coronary Artery Disease [187] Hypertension [406760] Normal [facility] PROF CHEM 8 (BAS METB)on Anion gap [Moles/Vol] 13.9 mmol/L Normal [facility] Comment on above: Performed By: #### T SH, LIPID, T4, FT3, CMP #### [facility] [address] [place] [address] [address] Alicia Patel Calcium [Mass/Vol] 8.3 mg/dL Critically low 8.5-10.1 [facility] Comment on above: Performed By: #### T SH, LIPID, T4, FT3, CMP #### [facility] [address] [place] [address] [address] Alicia Patel Chloride [Moles/Vol] 108 mmol/L Critically high 98-107 [facility] Comment on above: Performed By: #### T SH, LIPID, T4, FT3, CMP #### [facility] [address] [place] [address] Dr. Alicia Patel CO2 [Moles/Vol] 23.5 mmol/L Normal 21.0-32.0 [facility] Comment on above: Performed By: #### T SH, LIPID, T4, FT3, CMP #### [facility] [address] [place] [address] Dr. Alicia Patel Creatinine [Mass/Vol] 2.41 mg/dL Critically high 0.70-1.30 [facility] Comment on above: Performed By: #### T SH, LIPID, T4, FT3, CMP #### [facility] [address] [place] [address] Dr. Alicia Patel EGFR-AF BELARUSIAN 32 mL/min/1.73m2 Critically low >=60 [facility] Comment on above: Performed By: #### T SH, LIPID, T4, FT3, CMP #### [facility] [address] [place] [address] Dr. Alicia Patel EGFR-NON AF BELARUSIAN 26 mL/min/1.73m2 Critically low >=60 [facility] Comment on above: Performed By: #### T SH, LIPID, T4, FT3, CMP #### [facility] [address] [place] [address] Dr. Alicia Patel Glucose [Mass/Vol] 74 mg/dL Normal 74-106 [facility] Comment on above: Performed By: #### T SH, LIPID, T4, FT3, CMP #### [facility] [address] [place] [address] Dr. Alicia Patel Potassium [Moles/Vol] 4.4 mmol/L Normal 3.5-5.1 [facility] Comment on above: Performed By: #### T SH, LIPID, T4, FT3, CMP #### [facility] [address] [place] [address] [address] Alicia Patel Sodium [Moles/Vol] 141 mmol/L Normal 136-145 [facility] Comment on above: Performed By: #### T SH, LIPID, T4, FT3, CMP #### [facility] [address] [place] [address] [address] Alicia Patel Urea nitrogen [Mass/Vol] 36.0 mg/dL Critically high 7.0-18.0 [facility] Comment on above: Performed By: #### T SH, LIPID, T4, FT3, CMP #### [facility] [address] [place] [address] [address] Alicia Patel Urea nitrogen/Creatinine [Mass ratio] 14.9 mg/mg Normal [facility] Comment on above: Performed By: #### T SH, LIPID, T4, FT3, CMP #### [facility] [address] [place] [address] [address] Alicia Patel TROPONIN, HIGH SENSITIVITYon 10-14-2022 HSTROP 9.6 pg/mL Normal 4.0-76.1 [facility] Comment on above: Result Comment: CUT- OFF POINTS HAVE BEEN ESTABLISHED BASED ON THE FOURTH UNIVERSAL DEFINITIONS OF MYOCARDIAL INFARCTION. THE UPPER REFERENCE LIMIT (URL) OF TROPONIN, DEFINED THE 99TH PERCENTILE OF cTnI DISTRIBUTION IN A REFERENCE POPULATION, HAS BEEN CONFIRMED THE DECISION THRESHOLD FOR TX DIAGNOSIS. Performed By: #### T SH, LIPID, T4, FT3, CMP #### [facility] [address] [place] [address] Dr. Alicia Patel Main OR Intraoperative Recor don 10-13-2022 Main OR Intraoperative Record IntraOp Document Type FT Summary Primary Physician: Ni OLIVARES MD Finalized Date/Time: 10/13/22 15:17:44 Pt. Name: VICTORINO SMYTH/Sex: 1940 Male Med Rec #: [id number] Physician: Ni OLIVARES MD Financial #: [id number] Pt. Type: A Room/Bed: AS06/ Admit/Disch: 10/07/22 [...] Role Performed Anesthesiologist of Surgeon - Primary Public Safety Officer - Primary Record Time In 10/07/22 15:01:00 [...] Aravind Gatica 10/07/22 15:42:17 General Comments: DAVID HAYES REP HERE FOR CASE. Justine GATICA RN. [...] Prep Dry n/a Time Out Toya OLIVEROS, Timothy Motta, MARSHALL OLIVEROS, Ni Garcia, Aravind Gatica, Hali Ruffin Time Out Complete 10/07/22 15:07:00 Outcomes Met? [...] RIGHT ESWL Primary Procedure Yes Primary Surgeon MARSHALL OLIVEROS, Ni Garcia Start 10/07/22 15:08:00 Stop 10/07/22 15:35:00 Anesthesia [...] and tissue Entry 1 Skin Integrity Intact, [place], Warm, and Skin Abnormality No Dry Outcomes [...] at Side (more content not included)... Normal [facility] Consent for Anesthesiaon Consent for Anesthesia [id number]#1.00CD:127 [facility] Discharge Instructionson Discharge Instructions [id number]#1.00CD:127 [facility] IntraOperative Documentson 0 10-08-2022 IntraOperative Documents [id number]#1.00CD:127 [facility] IntraOperative Documents [id number]#1.00CD:127 [facility] IntraOperative Documents [id number]#1.00CD:127 [facility] Preoperative Documentson Preoperative Documents [id number]#1.00CD:127 [facility] Preoperative Documents [id number]#1.00CD:127 [facility] Preoperative Documents [id number]#1.00CD:127 [facility] XR Abdomen 1 Viewon 10-09-19 23 XR [...] mGy = 0 DAP = 0 Normal [facility] CHEMISTRYOrdered By: Lab ROP User on 10-07-2022 Glucose [Mass/Vol] 101 mg/dL High 55 - 99 mg/dL [facility] POC Subsection Comment on above: Result Comment: Jackelin DUNN POC Device SN [id number] Invalid Interpretation Code [facility] POC Subsection POC User ID [id number] Invalid Interpretation Code [facility] POC Subsection POC Username BEE NORRIS Invalid Interpretation Code [facility] POC Subsection Capillary Glucose POCon 09-25 Glucose [Mass/Vol] 101 mg/dL High 55-99 [facility] Comment on above: Result Comment: Jackelin DUNN Performed By: #### 2 [id number] #### [facility] [address] [place] [address] Consent for Procedure/Surger yon 10-07-2022 Consent for Procedure/Surgery [id number]#1.00CD:127 Normal [facility] Consent for Treatmenton 09-25 Consent for Treatment [id number]#1.00CD:127 Normal [facility] H&P Updateon 10-07-2022 H&P Update [id number]#1.00CD:127 Normal [facility] Inpatient Patient Summaryon 10-07-2022 Inpatient Patient Summary [address] [address] [facility] Clinical Discharge Instructions PERSON INFORMATION Name: VICTORINO SMYTH PH[facility]ICIANS Admitting Physician: Ni OLIVARES MD Attending Physician: Ni OLIVARES MD PCP: Erum OLIVEROS, Tray Discharge Diagnosis: Comment: PATIENT EDUCATION INFORMATION Instructions: Post Op Patient Instructions - FT (CUSTOM); Lithotripsy, Care After Medication Leaflets: Follow up: With: Address: When: Ni MARSHALL [address] [place] [address], [address], [address] [address] Business (1) Comments: We were [...] other anesthesia procedures. Type Location Start [facility] Office Visit [facility] EU Charito 10/29/2022 8:45 AM 10/29/2022 9:00 AM Confirmed MEDICATION LIST New Medications [id number], [address] [place], [place] [id number], [phone] acetaminophen-hydrocodone (acetaminophen-hydrocodone 325 mg-5 mg oral tablet) [...] Capsules By Mouth every day. Comment: Normal [facility] Main OR PACU I Recordon 09-25 Main OR PACU I Record PACU Phase I Docum ent Type FT Summary Primary Physician: Ni OLIVARES MD Finalized Date/Time: 10/07/22 16:21:28 Pt. Name: VICTORINO SMYTH/Sex: 1940 Male Med Rec #: [id number] Physician: Ni OLIVARES MD Financial #: [id number] Pt. Type: A Room/Bed: Admit/Disch: 10/07/22 09:01:16 [...] By: ALESSIA YOON RN 10/07/22 16:21 Normal [facility] Main OR PACU II Recordon Main OR PACU II Record PACU Phase II Doc ument Type FT Summary Primary Physician: Ni OLIVARES MD Finalized Date/Time: 10/07/22 18:36:17 Pt. Name: VICTORINO SMYTH Bryan RuedaB./Sex: 1940 Male Med Rec #: [id number] Physician: Ni OLIVARES MD Financial #: [id number] Pt. Type: A Room/Bed: [place] [address] Admit/Disch: 10/07/22 09:01:16 - 10/07/22 17:40:00 Institution: [...] II Outcomes Met? Yes Last Modified By: Reed BRITO, Eliz Khanna 10/07/22 18:35:14 Post-Care Text: The patient demonstrates [...] By: Eliz Mcbride RN 10/07/22 18:36 Normal [facility] Main OR Preoperative Recordo n 10-07-2022 Main OR Preoperative Record PreOp Document Type FT Summary Primary Physician: Ni OLIVARES MD Finalized Date/Time: 10/07/22 15:12:57 Pt. Name: VICTORINO SMYTH /Sex: 1940 Male Med Rec #: [id number] Physician: Ni OLIVARES MD Financial #: [id number] Pt. Type: A Room/Bed: 11/25 Admit/Disch: 10/07/22 09:01:16 - Institution: Case Times [...] 10/07/22 15:12 Aravind Gatica 10/07/22 15:12 Normal [facility] Monitor [place]ordon 10-07-2022 Monitor Record [id number]:127 Normal [facility] Monitor Record [id number]:127 [facility] Operative Reporton Operative Report Patient: SHERYL SMYTH Age: 82 years Sex: Male : 1940 Associated Diagnoses: None Author: Ni OLIVARES MD Postoperative Information Date/ Time: 10/07/2022 15:48:00 Postoperative Diagnosis: Right renal calculus Status post right JJ stent. Performed by: Marshall OLIVEROS, Ni Bragg. Findings: Procedure: ESWL right renal calculus Anesthesia: [...] it well. He is transferred to the [facility] and then back to PACU in satisfactory [...] patient's that he needs to contact his director zone and/or Dr. Jose Alfaro to arrange for possible further follow-up regarding this. She was in agreement with the plan.. Estimated Blood Loss: 0 ml. Complications: None. Anesthesia type: General. [facility] Comment on above: Result Comment: Elec tronically Signed By: Ni OLIVARES MD\.br\Date and Time Signed: 10/07/22 15:51 EDT Outpatient Surgery Discharge Instructionon 10-07-2022 Outpatient Surgery Discharge Instruction [address] [address] Patient Discharge Instructions PERSON INFORMATION [...] THE NEAREST EMERGENCY ROOM OR CALL 911 I, VICTORINO SMYTH, have received the attached patient education materials/instructions and have verbalized understanding: May we do a follow up call? Yes No I was present when discharge instructions were given ____ Patient Signature _ Date Clinican/Nurse Signature Date Follow up: With: Address: When: Ni OLIVARES [address] [place] [address], [address], [address] [address] Business (1) Comments: We were [...] Location Start Finish State [place] Office Visit [facility] [place] 10/29/2022 8:45 AM 10/29/2022 9:00 AM Confirmed [...] to serve you. Thank you for choosing [facility] HERE ARE THE MEDICATION CHANGES THAT OCCURRED DURING YOUR HOSPITAL STAY New Medications [id number], [address], [place] [id number], [phone] acetaminophen-hydrocodone (acetaminophen-hydrocodone 325 mg-5 mg oral tablet) [...] Instructions: Lithotripsy, Care (more content not included)... Normal [facility] Patient Education - [employer] 0 10-07-2022 [...] these instructions at home: Medicines ? Take dmik-bth-gfvpbvi and prescription medicines only as told by [...] help ri (more content not included)... Normal [facility] Progress Note-Physicianon Progress Note-Physician Patient: VICTORINO SMYTH Age: 82 years Sex: Male : 1940 Associated Diagnoses: None Author: Toya OLIVEROS, Timothy Motta Postoperative Information Postoperative disposition: Postoperative disposition: To PACU. Optimetrix number: Optimetrix number [id number]. Anesthetic utilized: General. Physical Examination Vital Signs [...] when meets criteria ( To home ). [facility] Comment on above: Result Comment: Elec tronically Signed By: Toya OLIVEROS, Timothy Motta\.br\Date and Time Signed: 10/07/22 16:54 EDT Progress [...] Problems Acute kidney failure / SNOMED CT 95239203 / Confirmed Anticoagulated / SNOMED CT 292894131 / Confirmed BPH associated with nocturia / SNOMED CT 6330846831 / Confirmed BPH with urinary obstruction / SNOMED CT 7388471387 / Confirmed Chronic obstructive pulmonary disease (COPD) / SNOMED CT 94752075 / Confirmed Coronary artery disease / SNOMED CT 06302321 / Confirmed DM (diabetes mellitus), type 2 / SNOMED CT 339154277 / Confirmed Elevated PSA / SNOMED CT 0024631740 / Confirmed Erectile dysfunction / SNOMED CT 0767745350 / Confirmed Flank pain / SNOMED CT 313649156 / Confirmed H/O: hypothyroidism / SNOMED CT 660927931 / Confirmed Hydronephrosis / SNOMED CT 28408119 / Confirmed Hydronephrosis with ureteral calculus / SNOMED CT 5652605562 / Confirmed Hyperlipidemia / SNOMED CT 28849156 / Confirmed Hyperplastic colon polyp / SNOMED CT 8334561522 / Confirmed Hypertension / SNOMED CT 8160038551 / Confirmed Kidney stone / SNOMED CT 459089572 / Confirmed Myocardial infarct / SNOMED CT 86451997 / Confirmed Occult blood in stools / SNOMED CT 23213452 / Confirmed Postprandial diarrhea / SNOMED CT 56887136 / Confirmed Prostate cancer / SNOMED CT 8841088536 / Confirmed Rheumatoid arthritis / SNOMED CT 195899472 / Confirmed Ureteral stone / SNOMED CT 98110879 / Confirmed Urinary retention / SNOMED CT 432953710 / Confirmed, Active Problems (24) Acute kidney [...] Mean Kayce (more content not included)... Normal [facility] Comment on above: Result Comment: Elec tronically Signed By: Toya OLIVEROS, Timothy Motta\.br\Date and Time Signed: 10/07/22 16:52 EDT Coding Summary.on 09-22-2022 Coding Summary. CD:[id number] Ww+PGh lYWQ+PN7ZCQXkW08bwAYttF6sA 0NMTElOSywgQVBQTElOSyIgbmF yIO1uaCQrJKOq IC8+YH0eANQcDnfiyPJgt5S8cX Y5L87lbf0jDOsreMJ8SJNbJmZn qsynf1ebgXt5TYshRidrNnPr EHZzqW33UJM4gY19Ou59wCNdrH Jro3hzqDn6YmDjRFUxZBH5dIad WAhqn2JbUMRnL99gvJFul8H7 ZTAetHpzgQYhJrGyvVJ6yS8hYT jgvoqbw2hrwwbmGwl1bc56eDWv t8N7sIQ6Q6NwtsK7FAIgjVPl JelcnYATtB4wpwjrp5bwihnoFo ZwIORrQYf7MSg5UGEjnDnmJuHe LI92TFF7IBYpksMjH4EoKBOd pPkiNxS6c2O7Oo4DS3JYZartP9 VNTUFSWTwvdGQ+LF86cs58K4Vl ZilkUwl7UJLtWOK8dSV5fZ4x CCMoBEees2P5mSF8J1HbsqJyur 0fa7aaWHZsFMbdI95vxJSfz6T4 UUNjkBX2NDSncSnmSyTbeK41 Oyc+KLFcvGjzy8ZdNdpng5nxh2 sqpPf5AatuIIHwnxWwfQwhYTU8 o9RxRw3hLOGmzFQ8oUX4xN6b GnOpJeH1DLguI014IvRgrYJdSn doH39mP9IbmJW+UDVbMyc1NGPc eHifCC1cX3LeAWKygzovfJMg qDwwYO4kLXDffebfORWahR1bOD OyK1f0FoZqJhH6CQsgL2XkXCXn yjfiXj79tO5aAlFcPyG8GAav I0CzsaI9PKUkwZGxALejNBL7H9 7vz7L4VUZuRZCgPPW1xWT6nS1u bGlnbjogbGVmdDsgdmVydGlj HOsrYOneL419LSZshEseDjLvFR luZyBEYXRlOiAgMDMvMjkvMjAy MzwvdGQ+EHJcXQJ6jApcKSJv bPVgZNbxCj6smJanrPvmXU9iJO IjtdryUCHtdZ0cDSSwsIOvbPwy PI3rONYyxsevj585NqSxQTA0 VUCmsBHoQ8ZofB0cHxEsTSOdWP EuN7XmlQFpLJgyG362UXgrCeP4 SSPklrJuK4PdFZAgpLojSkR4 d0R3Qr4Ne8RgaqkcN2GkdYFfLt PpSybkKDr1O2FkGjwjqXR+PC90 JXXiAE10HJu8YMU7kUnmTTjk EVQzH5DleR6oCbPsVMYrGHBnCe c+PHRhYmxlIHdpZHRoPScxMDAl MnHshQluTO0rDr7aGUTjWHOy uWbdfKKjJrRhc5urIBWuCHeuQL 7zcPnwN1ItvIL0QBDyx5n3Ex70 Y18vR9MaoVV+ZYBrnJO2aCP0 dU4mEwGfKcR7OKyzT075MgXmrZ SiPuhzb7viy9uwhVg3YaR2BLIi ybJlaHoiQOO7f9WsHq05J66e IHdpZHRoPSIxNSUiIHZhbGlnbj 7ejI5qJt5+MVInjYH0rFP8cK8e FvVnJwO2PVctV086YnNljAKc Xvwyn3nrl9kvlYr5RxXbMRNljo HmwStmMZP1v6YgLj58Q9QmlZbs e8JwVaz3kt12vBXjw8X3lRK5 G2LkONWxuilrhWYcwQkrYY0cQI TtfsxdBASghA6kRCXjR5n1QqHa KpW4YMstR2HklmL8TCVuqJCs YVGzrVDWvC1ipawbo1pgiixfVl HqCIFeAHi2ZTd9EXKooYssPsVt LHS0XmI2OLI9vKMscI6aqUyq vsclhF3jZbd+KJY5fGPsfFBQIR 1lOjwvdGQ+ZKKkXQQ2mGfxAWpy NSNqcE8aXKEmZ0z0IxYnVtJ1 PRxfE3CgqaY7PGEwcSZnVBJegU DNxQ9fceizo5scnldrZkQtFNSt QPw6FOn0NLQnkRbrCpZuHHR3 DeH6TRY4xVNvxD3aeJqhhwwvxR 9wOyc+AwjqsLmfYSQ8CTb5V5Vu Osl6QQKudQsaIU0fhYWfBMoq Ch7vvOyjqEqbES8xAKClbagtm5 61XlByu0atENPurJWkSBhmCXA9 R59vj3G0PEGoAGOkTYK2vRT8 kE8pgGumsheejJNzwJgtumWrtO guMSlxHJzzV305GLTkzXxuQzSf KJc6E2RzOtx8ETWbsGxwGU9q pHWjGRhoFz0rqSpngLbkMR2wLS Utiylky698BlAde6xbMONvuTIt NNjtCMZ4A87lp9D7IWNcYTKa KRS2tFQ1zT2qmNsgqlhttUUtpH gimeRyiDszELblLVhsU185NAKm gZqdRoNjvZy3D9EeWkc1EKBg zJrkBO6zuAXqIFspKe5wyUmufI ifNF3ySGKtjuxxm192BnWyk0zw WBDclSPxQNfqDWB2B74zm3E9 EKSdQUPuLQF5nHC1aB5vbGttrh ogbGVmdDsgdmVydGljYWwtYWxp T697DRMnyUpvPgIbwKhyzyCv HIktICq7D0WkQcwaqOV+PC90YW SdRS59aITpxCCmy2rtyEl3WaAy NQXaWPQ6jPcmNKlph0FzSCTa I59yuLSun3L7DTEwhYpyfELfGs TmwLV3jY2aFRyzmmxmg3mxuzny Tlutk0vwak67hB33O71lAFkz FLFyNQXrQYGnVSCdyNssok1etW 9wIi8+GVWaxJR8hVD3yK5mWRCf OwD1LXnsX846VkEgxQWsFohe f3amv3rkcQq4KsG6PTIfkxZebO flIUT6k2RnPf76D59eAVqnTYJo JMTvRCKzKBOeyJpxvs7ygB7h Ii8+HYIiiAC7sPP3yB4xEwJwZk Q6QHgsA459OsTkiKYwSdgnD33i T5SodVR+PFBaOtc4YQJbjKvc HK1krUSsTPxrTm6bDKA3YcFxLo UjQKeyK9YgRTOivcqavrfyvEK9 VQLmKDBjyB83Ol2dpRzhXLHd rCCJuG0pkadpa3lpbnvbExXwJE UyLPt1SDc8BSUsgCgjZpAlQTK0 IhM6QUZ2tYTbpE1ixXrcjknb sE6bK5GcHMKilbirFs89mK4lIt VfIaE9YBcdUlq+EPIWKT3DMwfj EgODSuVDFRBNXM99TM68hXAh y7P5wND8F7JiWXBqdkwudmnkeR K8ZLObYWGpwQ87nPPwNTfpKk7n n5W8x601IXWkOZEelJ73Gt3i jBsbHPUuvQSSuI4ciwgcn5ypsc utKuArKYNkLBx2MZe3GPKzwXnf MhIjJHW9WkK3HHO7aDDmqM9m dBzqjuyooB5zVzf+MDIvMDQvMT z0BbcqjNL+BLWmPRX6jEvoXPrl OPUxpX9dVUFwA7t7LgQwQnL1 IZsmZ3PdPJOwwcbtIp71kU6xMm CvIsD2ECwuE4HscdU5HEIclEMm LMirYVE6K57wr4B7IBCkHZFi TYY2vUI9qN0yoMurwkukhPGqeF ybsqYwuQazIGsaFSckO470SSAw bNqbDpzqFYcpNWVhSE91XA44 hWCwg0E3yXR8E6RbFQXamancit lsqPV8JJEyRZOgbD04gSUlHJwt Bi7vy1S1n832RFNnNGWlzU17 Sy1dsAlfOYZlqLIZiT8zqmfxy7 aksiegNxViPCHnENc6VEk2AIMv sIffDkXrCOC2YmT6RFK7rVAz yI5lxLksrwncyX6iZkg+TWFsZT wvdGQ+LWAsROL0aJthELccVKLw dO9wVBHpG1q4WlOiGlU3ZGzy U3TsZKQaxgciHg41uD3qUxBhQt U4HIciV6HqnqL6YRBobUFzVFlx HKG8R19bp9E8DACuVGErAEW7 fFP2lT3ztLknvgkvqMXphFgxfu UoxWjrZAllDHwpM326XUOmzCcr Bt36rBNuvGzjlnI6B0AsTmwk dHI+RJ21KTSmGO38zTGtwWHpg6 jdfEl2YwZvULGzXQY8nSexDHct i1QeJBKsJ86nkKJjp2S0NDNk ePpnxBAyEuNjlLX6rL7oOYzyii srj1numscwErjfo5vbcx60jT31 Y70hQGbdRNBhGARcDNNsAWRc eWljxg0gyR0tMy3+TJNwcLX3jA O2tF4zQzLmXvW6HRakJ919AtGb wTQtEsdsy4xkn1nuqVd4StJe ZOBceaHnnXcfEVY6w9WeSv70A9 9sIHdpZHRoPSIyMCUiIHZhbGln zd4nyW3bCv4+DD1hi3rjbt76 qJ93sLL+KEXjQMP2qYyvMPctMJ WjuB8hAQryTuW6DUOwFsHhmM32 xOAsECtmHe8kfJjtrOkcBS0f OCCdaoibc804JhBgw8mqFWQcrU RdXMusTDM5W68mq3J8NZOuUJDa DNS7sTX4jP1qaXxbuyrdlLXj iZsaotPsaBvrYEnmCLlsL880YI XjsNoyLrPnhZMtO7aekwSOQY7q OjwvdGQ+ORGvCCL3eXcvMEwh WSSgrY9tTZNuM8v5EmAuRdB4DW eeI6MmixQ3NQDdkSXwIZAquPBN jA3ooxdzh9uyvdzaZnFnSJKj HVd3PYf6KLUdgIipFvFpXRB0Vc N2YXM7nEKspT1toOzlbmguuU1o Oyc+RklOOjwvdGQ+PHRkIHN0 oKyoFPxsNYHjxU0mSVZjW1q7Nq AaIxF6XRnlB3SqubK5QALieCKa FTZsaSNHbT0mmiwvm6knwtcl TiUgAHYoKTv8OBv5KRRoeApiAp HdSLI9AdQ7VUW7zQIahM6faRpb bstytJ6wAto+TVJOOjwvdGQ+ MDDmUYO8nMuoMJhaNYVxxK7lLA GhJ8r0UkBzTsP9ZZghR0KqhpA0 NHWcrBHyJNMvtENLfN2bvyix h8zhunzlRuUsAKZwKMh4QBb6ML VpvCxmOeBeSOB8SxE3QIV0jMTo iT5fgByvkcuazI6eSkm+UGF5 XZX7FR43GU14Q3LoDxpvdMUdeK U+PHRhYmxlIHdpZHRoPScxMDAl GyVhsUscEM2gFi3kWQIsVKLn bGxhcHNl (more content not included)... Normal [facility] Consultation Noteon 09-21-19 Consultation Note [id number]#1.00CD:127 Normal [facility] Lab Reportson 09-20-2022 Lab Reports [id number]#1.00CD:127 Normal [facility] RAD - Ultrasound Reporton RAD - Ultrasound Report [id number]#1.00CD:127 Normal [facility] Outside Recordson 09-16-2022 Outside Records [id number]#1.00CD:127 Normal [facility] Auto Diffon 09-14-2022 Basophils/100 WBC (Bld) 0.5 % Normal 0.0-2.0 [facility] Comment on above: Order Comment: Order Added by Discern Expert. Performed By: #### 2 192335, 39662439, 7302159, 05301010, 1953227 #### [facility] [address] [place] [address] Basophils/Leukocytes Auto (Bld) [Pure # fraction] 0.0 E9/L Normal 0.0-0.2 [facility] Comment on above: Order Comment: Order Added by Discern Expert. Performed By: #### 2 213838, 60431471, 5201844, 21989565, 9784715 #### [facility] [address] [place] [address] 87692 Eosinophils/100 WBC (Bld) 3.2 % Normal 0.0-8.0 [facility] Comment on above: Order Comment: Order Added by Discern Expert. Performed By: #### 2 164473, 29285154, 9095653, 54807027, 8979422 #### [facility] [address] [place] [address] 423[address] Eosinophils/Leukocytes Auto (Bld) [Pure # fraction] 0.2 E9/L Normal 0.0-0.5 [facility] Comment on above: Order Comment: Order Added by Discern Expert. Performed By: #### 2 110158, 52147871, 1035075, 40430583, 4015257 #### [facility] [address] [place] [address] 15162 Lymphocytes/100 WBC (Bld) 17.6 % Normal 14.0-50.0 [facility] Comment on above: Order Comment: Order Added by Discern Expert. Performed By: #### 2 001501, 91694222, 5388886, 15980675, 1663878 #### [facility] [address] [place] [address] 01496 Lymphocytes/Leukocytes Auto (Bld) [Pure # fraction] 0.9 E9/L Low 1.0-4.0 [facility] Comment on above: Order Comment: Order Added by Discern Expert. Performed By: #### 2 305614, 42385388, 9234384, 41888798, 0019208 #### [facility] [address] [place] [address] Monocytes/100 WBC (Bld) 10.2 % Normal 4.0-14.0 [facility] Comment on above: Order Comment: Order Added by Discern Expert. Performed By: #### 2 520160, 97511419, 2457322, 30955099, 5336534 #### [facility] [address] [place] [address] Monocytes/Leukocytes Auto (Bld) [Pure # fraction] 0.5 E9/L Normal 0.2-1.0 [facility] Comment on above: Order Comment: Order Added by Discern Expert. Performed By: #### 2 499066, 90790437, 4859312, 04417920, 9819457 #### [facility] [address] [place] [address] Neutrophils/100 WBC (Bld) 68.5 % Normal 36.0-75.0 [facility] Comment on above: Order Comment: Order Added by Perfecto Expert. Performed By: #### 2 305182, 01299190, 7831982, 90485526, 4965158 #### [facility] [address] [place] [address] Neutrophils/Leukocytes Auto (Bld) [Pure # fraction] 3.6 E9/L Normal 2.0-7.5 [facility] Comment on above: Order Comment: Order Added by Perfecto Expert. Performed By: #### 2 746672, 44469361, 9410900, 34002881, 5351219 #### [facility] [address] [place] [address] BMPon 09-14-2022 Anion gap [Moles/Vol] 10 mmol/L Normal 6-16 [facility] Comment on above: Performed By: #### 2 305210, 17959736, 1865017, 91337189, 1237084 #### [facility] [address] [place] [address] Calcium [Mass/Vol] 8.6 mg/dL Low 8.9-11.1 [facility] Comment on above: Performed By: #### 2 241841, 57326258, 8454967, 30487298, 7587987 #### [facility] [address] [place] [address] Chloride [Moles/Vol] 108 mmol/L Normal 101-111 [facility] Comment on above: Performed By: #### 2 687077, 69056577, 9843799, 45724068, 2200245 #### [facility] [address] [place] [address] CO2 [Moles/Vol] 23 mmol/L Normal 21-31 [facility] Comment on above: Performed By: #### 2 587585, 89193706, 2810451, 74817254, 9173644 #### [facility] [address] [place] [address] Creatinine [Mass/Vol] 2.1 mg/dL High 0.5-1.3 [facility] Comment on above: Performed By: #### 2 802524, 14661259, 9792846, 24629768, 8216057 #### [facility] [address] [place] [address] Glucose [Mass/Vol] 89 mg/dL Normal 55-199 [facility] Comment on above: Result Comment: If t his glucose result represents a fasting glucose, interpretation should refer to the following reference range: 55-99 mg/dL Performed By: #### 2 914885, 82562698, 2797008, 73022257, 8598149 #### [facility] [address] [place] [address] Potassium [Moles/Vol] 4.1 mmol/L Normal 3.5-5.3 [facility] Comment on above: Performed By: #### 2 467242, 86003277, 1361922, 37575566, 6026294 #### [facility] [address] [place] [address] Sodium [Moles/Vol] 137 mmol/L Normal 135-145 [facility] Comment on above: Performed By: #### 2 389140, 14383212, 6448326, 83600171, 5646010 #### [facility] [address] [place] [address] Urea nitrogen [Mass/Vol] 26 mg/dL High 5-21 [facility] Comment on above: Performed By: #### 2 943937, 79595869, 7932085, 43223837, 7474642 #### [facility] [address] [place] [address] Urea nitrogen/Creatinine [Mass ratio] 12 No Units Normal 10-20 [facility] Comment on above: Performed By: #### 2 390385, 44295874, 9680959, 84481852, 1302088 #### [facility] [address] [place] [address] CBC w/ Auto Diffon 3 Erythrocyte distribution width (RBC) [Ratio] 14.0 % Normal 10.9-14.2 [facility] Comment on above: Performed By: #### 2 388835, 61812469, 7004897, 95437569, 7487946 #### [facility] [address] [place] [address] Hematocrit (Bld) [Volume fraction] 31.6 % Low 37.7-49.0 [facility] Comment on above: Performed By: #### 2 864041, 84186737, 5066875, 83342294, 9871581 #### [facility] [address] [place] [address] Hemoglobin (Bld) [Mass/Vol] 10.9 g/dL Low 13.5-17.5 [facility] Comment on above: Performed By: #### 2 304494, 34846801, 7280808, 92211195, 7821237 #### [facility] [address] [place] [address] MCH (RBC) [Entitic mass] 33.0 pg Normal 27.0-34.0 [facility] Comment on above: Performed By: #### 2 511391, 45498166, 0839830, 98956070, 3106969 #### [facility] [address] [id number] MCHC (RBC) [Mass/Vol] 34.5 g/dL Normal 31.4-36.0 [facility] Comment on above: Performed By: #### 2 888977, 95331992, 4236427, 43579542, 2986071 #### [facility] [address] [place] [address] MCV (RBC) [Entitic vol] 95.8 fL Normal 80.0-100.0 [facility] Comment on above: Performed By: #### 2 358150, 01008839, 3462701, 83634772, 1781663 #### [facility] [address] [place] [address]29[address] Platelet mean volume (Bld) [Entitic vol] 8.9 fL Normal 6.4-10.8 [facility] Comment on above: Performed By: #### 2 389283, 74215095, 6147455, 01581468, 0079750 #### [facility] [address] [place] [address] Platelets (Bld) [#/Vol] 151.0 E9/L Normal 150.0-500. 0 [facility] Comment on above: Performed By: #### 2 752815, 16487702, 6482555, 77929257, 5459336 #### [facility] [address] [place] [address] RBC (Bld) [#/Vol] 3.3 E12/L Low 4.3-5.9 [facility] Comment on above: Performed By: #### 2 299354, 21558883, 8608069, 40635803, 5723142 #### [facility] [address] [place] [address] WBC corrected for nucl RBC Auto (Bld) [#/Vol] 5.3 E9/L Normal 4.0-11.0 [facility] Comment on above: Performed By: #### 2 788383, 60007253, 8301947, 11740436, 1393918 #### [facility] [address] [place] [address] Consent for Treatmenton 08-26 Consent for Treatment [id number]#1.00CD:127 Normal [facility] PT & PTTon 09-14-2022 aPTT Coag (PPP) [Time] 29.7 second(s) Normal 25.1-36.5 [facility] Comment on above: Result Comment: Para [...] the same coagulation reagent and instrumentation as [facility]. Currently there are no coagulation studies available worldwide for children to 14 days, and no normal ranges. Heparin therapeutic range (represented by Anti-Factor Xa activity of 0.2 - 0.4 U/mL) corresponds to PTT of 56.6 - 109.0 sec. Performed By: #### 2 497722, 38705828, 6121394, 14718339, 1599908 #### [facility] [address] [place] [address] INR Coag (PPP) [Relative time] 1.0 {INR} Invalid Interpretation Code [facility] Comment on above: Result Comment: INR results are specifically intended to assess patients stabilized on long-term Anticoagulation therapy suggested INR?s ?Less Intensive Anticoagulation? 2.0 ? 3.0 Conventional Range 3.0 ? 4.5 Performed By: #### 2 813281, 00415956, 3991257, 98414971, 2003897 #### [facility] [address] [place] [address] PT Coag (PPP) [Time] 11.7 second(s) Normal 9.4-12.5 [facility] Comment on above: Result Comment: 15 [...] the same coagulation reagent and instrumentation as [facility]. Currently there are no coagulation studies available worldwide for children to 14 days, and no normal ranges. Performed By: #### 2 635035, 40903393, 9834728, 97998210, 4889509 #### [facility] [address] [place] [address] PTH INTACTon 09-14-2022 PTH, Intact 51 pg/mL Normal 15-65 [facility] Comment on above: Performed By: #### T SH, LIPID, T4, FT3, CMP #### [facility] [address] [place] [address] Alicia Patel UA With Cult Reflexon 2022 Bacteria LM Ql (Urine sed) TRACE Normal Trace [facility] Comment on above: Performed By: #### 2 982556, 88721413, 9712243, 76922849, 0070017 #### [facility] [address] [place] [address] Bilirubin Ql (U) Negative Normal Negative [facility] Comment on above: Performed By: #### 2 699191, 26431709, 5152235, 39354661, 6502469 #### [facility] [address] [place] [address] Clarity (U) CLOUDY Abnormal Clear [facility] Comment on above: Performed By: #### 2 533055, 16231894, 6039754, 68145648, 1238557 #### [facility] [address] [place] [address] Color (U) YELLOW Normal Yellow [facility] Comment on above: Performed By: #### 2 105252, 27826493, 1973583, 77646680, 8060007 #### [facility] [address] [place] [address] Epithelial cells.squamous LM.HPF (Urine sed) [#/Area] 0-2 Normal 0-2 [facility] Comment on above: Performed By: #### 2 101419, 54877551, 8514335, 63282757, 9491076 #### [facility] [address] [place] [address] Glucose Test strip (U) [Mass/Vol] Negative Normal Negative [facility] Comment on above: Performed By: #### 2 766972, 48526205, 2057476, 76193330, 4684348 #### [facility] [address] [place] [address] Hemoglobin Ql (U) 3+ Abnormal Negative [facility] Comment on above: Performed By: #### 2 894053, 79573504, 5878339, 19153745, 6824320 #### [facility] [address] [place] [address] Ketones (U) [Mass/Vol] Negative Normal Negative [facility] Comment on above: Performed By: #### 2 606462, 43428558, 5033343, 36998186, 0772097 #### [facility] [address] [place] [address] Gravette.plasma/Gravette .RBC (Bld) [Mass ratio] >30 Abnormal 0-3 [facility] Comment on above: Performed By: #### 2 461906, 64075441, 9442432, 07381262, 2319904 #### [facility] [address] [place] [address] Mucus Ql (Urine sed) TRACE Normal [facility] Comment on above: Performed By: #### 2 256279, 61944296, 7656192, 78368100, 9241777 #### [facility] [address] [place] [address] Nitrite Ql (U) Negative Normal Negative [facility] Comment on above: Performed By: #### 2 871804, 23631083, 0338491, 08356880, 1508316 #### [facility] [address] [place] [address] pH (U) 6.0 [pH] Invalid Interpretation Code 5.0-9.0 [facility] Comment on above: Performed By: #### 2 264495, 90558657, 6235027, 72145958, 3469050 #### [facility] [address] [place] [address] Protein (U) [Mass/Vol] 2+ Abnormal Negative [facility] Comment on above: Performed By: #### 2 554151, 00377054, 2325337, 77305307, 6552979 #### [facility] [address] [place] [id number] Specific gravity (U) [Rel density] 1.025 Invalid Interpretation Code 1.005-1.03 0 [facility] Comment on above: Performed By: #### 2 [id number], [id number], [id number], [id number], [id number] #### [facility] [address] [place] [address] Type of Urine collection method Clean Catch Normal [facility] Comment on above: Performed By: #### 2 [id number], [id number], [id number], [id number], [id number] #### [facility] [address] [place] [address] Urobilinogen Qn (U) 0.2 {Wil'U}/dL Normal 0.0-1.0 [facility] Comment on above: Performed By: #### 2 [id number], [id number], [id number], [id number], [id number] #### [facility] [address] [place] [address] WBC Auto Ql (U) TRACE Abnormal Negative [facility] Comment on above: Performed By: #### 2 507352, [id number], [id number], [id number], [id number] #### [facility] [address] [place] [address] WBC casts LM.LPF (Urine sed) [#/Area] 0-3 Normal [facility] Comment on above: Performed By: #### 2 [id number], [id number], 2039285, [id number], [id number] #### [facility] [address] [place] [address] WBC LM.HPF (Urine sed) [#/Area] 0-5 Normal 0-5 [facility] Comment on above: Performed By: #### 2 [id number], [id number], 2075511, [id number], [id number] #### [facility] [address] [place] [address] XR Chest 2 Viewson 3 XR Chest [...] mGy = na DAP = na Normal [facility] eGFRon 09-14-2022 GFR/1.73 sq M.predicted among blacks MDRD (S/P/Bld) [Vol rate/Area] 37 mL/min/1.73 m2 Low >=59 [facility] Comment on above: Order Comment: Order added by Discern Expert. Result Comment: eGFR is race adjusted. AA=. Performed By: #### 2 [id number], [id number], 5588031, [id number], [id number] #### [facility] [address] [place] [address] GFR/1.73 sq M.predicted among non-blacks MDRD (S/P/Bld) [Vol rate/Area] 31 mL/min/1.73 m2 Low >=59 [facility] Comment on above: Order Comment: Order added by Discern Expert. 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 Kidney failure is indicated at less than 15 mL/min/1.73m2. Performed By: #### 2 [id number], [id number], [id number], [id number], [id number] #### [facility] [address] [place] [address] HEMOGRAM AND PLATELon 2022 Hematocrit (Bld) [Volume fraction] 32.9 % Critically low 42.0-54.0 [facility] Comment on above: Performed By: #### T SH, LIPID, T4, FT3, CMP #### [facility] [address] [address] [address] Alicia Patel Hemoglobin (Bld) [Mass/Vol] 10.9 g/dL Critically low 14.0-18.0 [facility] Comment on above: Performed By: #### T SH, LIPID, T4, FT3, CMP #### [facility] [address] [place] [address] Dr. Alicia Patel MCH (RBC) [Entitic mass] 32.6 pg Normal 25.9-34.0 [facility] Comment on above: Performed By: #### T SH, LIPID, T4, FT3, CMP #### [facility] [address] [place] [address] Dr. Alicia Patel MCHC (RBC) [Mass/Vol] 33.1 g/dL Normal 29.9-35.2 [facility] Comment on above: Performed By: #### T SH, LIPID, T4, FT3, CMP #### [facility] [address] [place] [address] Dr. Alicia Patel MCV (RBC) [Entitic vol] 98.5 fL Critically high 80.0-94.0 [facility] Comment on above: Performed By: #### T SH, LIPID, T4, FT3, CMP #### [facility] [address] [place] [address] Dr. Alicia Patel PLT 145 103/ul Critically low 150-450 [facility] Comment on above: Performed By: #### T SH, LIPID, T4, FT3, CMP #### [facility] [address] [place] [address] Dr. Alicia Patel RBC 3.34 106/ul Critically low 4.70-6.10 [facility] Comment on above: Performed By: #### T SH, LIPID, T4, FT3, CMP #### [facility] [address] [place], [place] [address] Dr. Alicia Patel WBC 5.1 103/ul Normal 4.0-11.0 [facility] Comment on above: Performed By: #### T SH, LIPID, T4, FT3, CMP #### [facility] [address] [place] [address] Dr. Alicia Patel MAGNESIUMon 09-13-2022 Magnesium [Mass/Vol] 1.5 mg/dL Critically low 1.8-2.4 [facility] Comment on above: Performed By: #### T SH, LIPID, T4, FT3, CMP #### [facility] [address] [address] [address] Alicia Patel RENAL FUNCTION PANELon 09-13 Albumin [Mass/Vol] 3.5 g/dL Normal 3.4-5.0 [facility] Comment on above: Performed By: #### U RTPCR #### [facility] [address] [address] [address] Alicia Patel Calcium [Mass/Vol] 8.4 mg/dL Critically low 8.5-10.1 [facility] Comment on above: Performed By: #### U RTPCR #### [facility] [address] [place] [address] Dr. Alicia Patel Chloride [Moles/Vol] 107 mmol/L Normal 98-107 [facility] Comment on above: Performed By: #### U RTPCR #### [facility] [address] [address] [address] Alicia Patel CO2 [Moles/Vol] 25.1 mmol/L Normal 21.0-32.0 [facility] Comment on above: Performed By: #### U RTPCR #### [facility] [address] [place] [address] Dr. Alicia Patel Creatinine [Mass/Vol] 1.96 mg/dL Critically high 0.70-1.30 [facility] Comment on above: Performed By: #### U RTPCR #### [facility] [address] [place] [address] Dr. Alicia Patel EGFR-AF BELARUSIAN 40 mL/min/1.73m2 Critically low >=60 [facility] Comment on above: Performed By: #### U RTPCR #### [facility] [address] [place] [address] Dr. Alicia Patel EGFR-NON AF BELARUSIAN 33 mL/min/1.73m2 Critically low >=60 [facility] Comment on above: Performed By: #### U RTPCR #### [facility] [address] [address] [address] Alicia Patel Glucose [Mass/Vol] 151 mg/dL Critically high 74-106 [facility] Comment on above: Performed By: #### U RTPCR #### [facility] [address] [address] [address] Alicia Patel Phosphate [Mass/Vol] 3.5 mg/dL Normal 2.6-4.7 [facility] Comment on above: Performed By: #### U RTPCR #### [facility] [address] [place] [address] Dr. Alicia Patel Potassium [Moles/Vol] 4.3 mmol/L Normal 3.5-5.1 [facility] Comment on above: Performed By: #### U RTPCR #### [facility] [address] [place] [address] Dr. Alicia Patel Sodium [Moles/Vol] 142 mmol/L Normal 136-145 [facility] Comment on above: Performed By: #### U RTPCR #### [facility] [address] [place] [address] Dr. Alicia Patel Urea nitrogen [Mass/Vol] 23.0 mg/dL Critically high 7.0-18.0 [facility] Comment on above: Performed By: #### U RTPCR #### [facility] [address] [place] [address] Dr. Alicia Patel UA RANDOM W/MICROSCOPICon BACTERIA TRACE Abnormal NONE SEEN [facility] Comment on above: Performed By: #### T SH, LIPID, T4, FT3, CMP #### [facility] [address] [place] [address] Dr. Alicia Patel Bilirubin Ql (U) Negative Normal NEGATIVE [facility] Comment on above: Performed By: #### T SH, LIPID, T4, FT3, CMP #### [facility] [address] [place] [address] Dr. Alicia Patel CAST NONE SEEN Normal NONE SEEN [facility] Comment on above: Performed By: #### T SH, LIPID, T4, FT3, CMP #### [facility] [address] [place] [address] Dr. Alicia Patel Clarity (U) CLEAR Normal CLEAR [facility] Comment on above: Performed By: #### T SH, LIPID, T4, FT3, CMP #### [facility] [address] [address] [address] Alicia Patel Color (U) LT. YELLOW Normal YELLOW [facility] Comment on above: Performed By: #### T SH, LIPID, T4, FT3, CMP #### [facility] [address] [address] [address] Alicia Patel Crystals LM Nom (Urine sed) NONE SEEN Normal NONE SEEN [facility] Comment on above: Performed By: #### T SH, LIPID, T4, FT3, CMP #### [facility] [address] [place] [address] Dr. Alicia Patel Epithelial cells LM Ql (Urine sed) RARE Normal NONE SEEN /RARE [facility] Comment on above: Performed By: #### T SH, LIPID, T4, FT3, CMP #### [facility] [address] [place] [address] Dr. Alicia Patel Glucose Ql (U) 500 mg/dl Abnormal NEGATIVE [facility] Comment on above: Performed By: #### T SH, LIPID, T4, FT3, CMP #### [facility] [address] [place] [address] Dr. Alicia Patel Hemoglobin Ql (U) LARGE Abnormal NEGATIVE [facility] Comment on above: Performed By: #### T SH, LIPID, T4, FT3, CMP #### [facility] [address] [place] [address] Dr. Alicia Patel Ketones Ql (U) Negative Normal NEGATIVE [facility] Comment on above: Performed By: #### T SH, LIPID, T4, FT3, CMP #### [facility] [address] [place] [address] Dr. Alicia Patel LEUKOCYTES Negative Normal NEGATIVE [facility] Comment on above: Performed By: #### T SH, LIPID, T4, FT3, CMP #### [facility] [address] [address] [address] Alicia Patel MUCOUS NONE SEEN Normal NONE SEEN [facility] Comment on above: Performed By: #### T SH, LIPID, T4, FT3, CMP #### [facility] [address] [address] [address] Alicia Patel Nitrite Ql (U) Negative Normal NEGATIVE [facility] Comment on above: Performed By: #### T SH, LIPID, T4, FT3, CMP #### [facility] [address] [place] [address] Dr. Alicia Patel pH (U) 6.0 [pH] Normal 5-9 [facility] Comment on above: Performed By: #### T SH, LIPID, T4, FT3, CMP #### [facility] [address] [place] [address] Dr. Alicia Patel RBC 20-50 Abnormal 0-2 [facility] Comment on above: Performed By: #### T SH, LIPID, T4, FT3, CMP #### [facility] [address] [place] [address] Dr. Alicia Ptael SPEC GRAVITY 1.020 Normal 1.005-<=1. 025 [facility] Comment on above: Performed By: #### T SH, LIPID, T4, FT3, CMP #### [facility] [address] [place] [address] Dr. Alicia Patel UA PROTEIN 100 mg/dl Abnormal NEGATIVE/ TRACE [facility] Comment on above: Performed By: #### T SH, LIPID, T4, FT3, CMP #### [facility] [address] [place] [address] Dr. Alicia Patel Urobilinogen Qn (U) 0.2 {Wil'U}/dL Normal 0.2 - 1. 0 [facility] Comment on above: Performed By: #### T SH, LIPID, T4, FT3, CMP #### [facility] [address] [place] [address] Dr. Alicia Patel WBC 0-2 Abnormal NONE SEEN [facility] Comment on above: Performed By: #### T SH, LIPID, T4, FT3, CMP #### [facility] [address] [place] [address] Dr. Alicia Patel URIC ACID SERUMon 09-13-2022 Urate [Mass/Vol] 5.8 mg/dL Normal 3.5-7.2 [facility] Comment on above: Performed By: #### U RTPCR #### [facility] [address] [place] [address] Dr. Alicia Patel URINE T PROTEIN CREAT RATIOo n 09-13-2022 Protein (U) [Mass/Vol] 122.4 mg/dL Critically high <=12.0 [facility] Comment on above: Performed By: #### U RTPCR #### [facility] [address] [place] [address] Dr. Alicia Patel UR PROT CREAT RAT 1.38 Normal [facility] Comment on above: Performed By: #### U RTPCR #### [facility] [address] [place] [address] Dr. Alicia Patel URINE CREAT 88.74 mg/dL Normal 20.00-300. 00 [facility] Comment on above: Performed By: #### U RTPCR #### [facility] [address] [place] [address] Dr. Alicia Patel VITAMIN D 25 OHon 09-13-2022 VIT D 25-OH 58.0 ng/mL Normal [facility] Comment on above: Performed By: #### T SH, LIPID, T4, FT3, CMP #### [facility] [address] [place] [address] Dr. Alicia Patel VIT D RANGES SEE BELOW Normal [facility] Comment on above: Result Comment: <20 ng/mL Vit D deficient 20 - <30 ng/mL Vit D insufficient 30 - 100 ng/mL Vit D sufficient >100 ng/mL Potential Toxicity Performed By: #### T SH, LIPID, T4, FT3, CMP #### [facility] [address] [place] [address] Dr. Alicia Patel Pre-Certification Formon Pre-Certification Form [id number]:127 Normal [facility] RAD - Ultrasound Reporton RAD - Ultrasound Report [id number]#[id number]:127 Normal [facility] Screenson 09-07-2022 Screens [id number]:12 7 Normal [facility] Patient Educationon 09-07-19 Patient Education Urology Kidney Stones Kidney stones [...] these instructions at home: Medicines ? Take lagw-duk-yohymnv and prescription medicines only as told by [...] 11/29/2008 Document Revised: 10/30/2019 Document Reviewed: 10/30/2019 [employer] Patient Education ? 2019 [employer] [facility] Office/Clinic Noteon 09-06-2022 Urology Office/Clinic Note Chief Complaint Pt is here for [facility] f/u HPI Staff Victorino is a 82 y.o. male here for hospital follow up. Pt was seen at [facility] Previous Dx: acute kidney failure, BPH w/ urinary obstruction, elevated PSA, ED, flank pain, hydronephrosis, kidney stone, prostate cancer, ureteral stone, urinary retention. S/P cysto/stent removal done on 04/15/20, cysto/bilateral dilation ureteral/stent done on 03/11/20, TURP done on 08/01/19, biopsy of prostate done on 07/04/19, cysto/RG/laser done on 06/27/19. Pt presented to [facility] on 08/11/22 for shortness of breath. Pt presented [place] [facility] [place] that evening on 08/11/22 for abdominal [...] the prior CT scan performed at the [facility]. The options include both nephroscopic/ureteroscopic [...] off asp (more content not included)... Normal [facility] Comment on above: Result Comment: Elec tronically Signed By: Ni OLIVARES MD\.br\Date and Time Signed: 09/06/22 10:36 EDT\.br\Electronically Co-Signed By: Samantha Dyson MA.br\Date and Time Co-Signed: 09/06/22 10:27 EDT US KIDNEYSon 09-01-2022 US KIDNEYS EXAMINATION: US TIFFANI GAY HISTORY: Kidney stone COMPARISON: No relevant comparison [...] TYLER MONSIVAIS Date: 2022-09-01 09:33 Normal [facility] CT chest wo con high reson 0 08-31-2022 CT chest wo con high res [facility] Main [place] [address] [place] [address] CT Scan Report Signed Patient: Victorino Smyth MR#: [id number] : 1940 Acct:[id number] Age/Sex: 82 / M ADM Date: 08/31/22 Loc: CT Room: Type: [facility] Attending Dr: Hiral Interiano MD Copies to: Hiral Interiano MD Ordering Provider: Hiral Interiano MD Date of Service: 08/31/22 CT/CT chest wo con high res: follow up left lower lung nodule CT CHEST WITHOUT IV CONTRAST: High-resolution protocol. CLINICAL HISTORY: Lung nodule seen on outside imaging. COMPARISON: CT abdomen and pelvis from [facility] 08/11/2022 TECHNIQUE: Spiral images were [...] Perez Jr., DManoharOManohar08/31/2022 3:25 PM Dictation Location: [place] [address] Transcribed By: [facility] 08/31/22 1525 Dictated By: Ifeanyi Perez Jr, DO 08/31/22 1520 Signed By: 08/31/22 1525 Normal [facility] PSA, FREE AND TOTAL RATIOon 08-25-2022 % Free PSA 13.7 % Normal [facility] Comment on above: Result Comment: The table [...] T SH, LIPID, T4, FT3, CMP #### [facility] [address] [place] [address] Dr. Alicia Patel Prostate specific Ag [Mass/Vol] 6.2 ng/mL Critically high 0.0-4.0 [facility] Comment on above: Result Comment: Dwight JUAREZ methodology. . According to the [employer], Serum PSA should decrease and [...] T SH, LIPID, T4, FT3, CMP #### [facility] [address] [place] [address] Dr. Alicia Patel PSA, Free 0.85 ng/mL Normal N/A [facility] Comment on above: Result Comment: Dwight linares ECLIA methodology. Performed By: #### T SH, LIPID, T4, FT3, CMP #### [facility] [address] [place] [address] Dr. Alicia Patel OCC BLD IMMUNO SCREENon 07-29 OCCULT BLOOD Negative Normal NEGATIVE [facility] Comment on above: Performed By: #### T SH, LIPID, T4, FT3, CMP #### [facility] [address] [place] [address] Dr. Alicia Patel CBC AUTO DIFFon 08-21-2022 BASO # 0.0 103/ul Normal 0.0-0.1 [facility] Comment on above: Performed By: #### U RTPCR #### [facility] [address] [place] [address] Dr. Alicia Patel Basophils/100 WBC (Bld) 0.3 % Normal 0.2-2.0 [facility] Comment on above: Performed By: #### U RTPCR #### [facility] [address] [place] [address] Dr. Alicia Patel EO # 0.2 103/ul Normal 0.0-0.7 [facility] Comment on above: Performed By: #### U RTPCR #### [facility] [address] [address] [address] Alicia Patel Eosinophils/100 WBC (Bld) 3.2 % Normal 0.9-7.0 [facility] Comment on above: Performed By: #### U RTPCR #### [facility] [address] [address] [address] Alicia Patel Erythrocyte distribution width (RBC) [Ratio] 12.9 % Normal 11.0-15.0 [facility] Comment on above: Performed By: #### U RTPCR #### [facility] [address] [place] [address] Dr. Alicia Patel Hematocrit (Bld) [Volume fraction] 35.4 % Critically low 42.0-54.0 [facility] Comment on above: Performed By: #### U RTPCR #### [facility] [address] [place] [address] Dr. Alicia Patel Hemoglobin (Bld) [Mass/Vol] 11.7 g/dL Critically low 14.0-18.0 [facility] Comment on above: Performed By: #### U RTPCR #### [facility] [address] [place] [address] Dr. Alicia Patel IG # 0.08 10e3/ul Critically high 0.00-0.03 [facility] Comment on above: Performed By: #### U RTPCR #### [facility] [address] [place] [address] Dr. Alicia Patel IG % 1.2 % Critically high 0.0-0.5 [facility] Comment on above: Performed By: #### U RTPCR #### [facility] [address] [place] [address] Dr. Alicia Paetl LYMPH # 1.1 103/ul Critically low 1.2-3.8 [facility] Comment on above: Performed By: #### U RTPCR #### [facility] [address] [place] [address] Dr. Alicia Patel Lymphocytes/100 WBC (Bld) 16.6 % Critically low 20.5-60.0 [facility] Comment on above: Performed By: #### U RTPCR #### [facility] [address] [place] [address] Dr. Alicia Patel MANUAL DIFF REQ NO Normal [facility] Comment on above: Performed By: #### U RTPCR #### [facility] [address] [place] [address] Dr. Alicia Patel MCH (RBC) [Entitic mass] 32.4 pg Normal 25.9-34.0 [facility] Comment on above: Performed By: #### U RTPCR #### [facility] [address] [place] [address] Dr. Alicia Patel MCHC (RBC) [Mass/Vol] 33.1 g/dL Normal 29.9-35.2 [facility] Comment on above: Performed By: #### U RTPCR #### [facility] [address] [place] [address] Dr. Alicia Patel MCV (RBC) [Entitic vol] 98.1 fL Critically high 80.0-94.0 [facility] Comment on above: Performed By: #### U RTPCR #### [facility] [address] [place] [address] Dr. Alicia Patel MONO # 0.6 103/ul Normal 0.3-0.8 [facility] Comment on above: Performed By: #### U RTPCR #### [facility] [address] [place] [address] Dr. Alicia Patel Monocytes/100 WBC (Bld) 8.8 % Normal 1.7-12.0 [facility] Comment on above: Performed By: #### U RTPCR #### [facility] [address] [place] [address] Dr. Alicia Patel NEUT # 4.8 103/ul Normal 1.4-6.5 [facility] Comment on above: Performed By: #### U RTPCR #### [facility] [address] [place] [address] Dr. Alicia Patel Neutrophils/100 WBC (Bld) 69.9 % Normal 43.0-75.0 [facility] Comment on above: Performed By: #### U RTPCR #### [facility] [address] [place] [address] Dr. Alicia Patel Platelet mean volume (Bld) [Entitic vol] 10.4 fL Normal 9.5-13.5 [facility] Comment on above: Performed By: #### U RTPCR #### [facility] [address] [place] [address] Dr. Alicia Patel PLT 200 103/ul Normal 150-450 [facility] Comment on above: Performed By: #### U RTPCR #### [facility] [address] [address] [address] Alicia Patel RBC 3.61 106/ul Critically low 4.70-6.10 [facility] Comment on above: Performed By: #### U RTPCR #### [facility] [address] [place] [address] Dr. Alicia Patel WBC 6.8 103/ul Normal 4.0-11.0 [facility] Comment on above: Performed By: #### U RTPCR #### [facility] [address] [place] [address] Dr. Alicia Patel FREE T3on 08-21-2022 FREE T3 1.91 pg/mlL Critically low 2.18-3.98 [facility] Comment on above: Performed By: #### T SH, LIPID, T4, FT3, CMP #### [facility] [address] [place] [address] Dr. Alicia Patel GLYCOHEMOGLOBIN A1Con 2022 ADA RECOMMENDATION SEE BELOW Normal [facility] Comment on above: Result Comment: ADA RECOMMENDED LIMIT 4.0 - 6.0 ADA THERAPEUTIC TARGET < 7.0 ACTION SUGGESTED > 7.0 Performed By: #### T SH, LIPID, T4, FT3, CMP #### [facility] [address] [place] [address] Dr. Alicia Patel Glucose [Mass/Vol] 194 mg/dL Normal [facility] Comment on above: Performed By: #### T SH, LIPID, T4, FT3, CMP #### [facility] [address] [place] [address] Dr. Alicia Patel HbA1c (Bld) [Mass fraction] 8.4 % Critically high 4.5-6.2 [facility] Comment on above: Performed By: #### T SH, LIPID, T4, FT3, CMP #### [facility] [address] [address] [address] Alicia Patel LIPID PROFILEon 08-21-2022 CHOL-HDL RATIO NORM SEE BELOW Normal [facility] Comment on above: Result Comment: 3.3 - 4.4 LOW RISK 4.4 - 7.1 AVERAGE RISK 7.1 - 11.0 MODERATE RISK >11.0 HIGH RISK Performed By: #### T SH, LIPID, T4, FT3, CMP #### [facility] [address] [place] [address] Dr. Alicia Patel Cholesterol [Mass/Vol] 120 mg/dL Normal <=200 [facility] Comment on above: Performed By: #### T SH, LIPID, T4, FT3, CMP #### [facility] [address] [place] [address] Dr. Alicia Patel Cholesterol in HDL [Mass/Vol] 30 mg/dL Critically low 40-60 [facility] Comment on above: Performed By: #### T SH, LIPID, T4, FT3, CMP #### [facility] [address] [place] [address] Dr. Alicia Patel Cholesterol in LDL [Mass/Vol] 59.8 mg/dL Normal [facility] Comment on above: Performed By: #### T SH, LIPID, T4, FT3, CMP #### [facility] [address] [place] [address] Dr. Alicia Patel Cholesterol.total/Chol esterol in HDL [Mass ratio] 4.0 {ratio} Normal [facility] Comment on above: Performed By: #### T SH, LIPID, T4, FT3, CMP #### [facility] [address] [place] [address] Dr. Alicia Patel HDL NORMAL > or = 60 mg/dl - LO W CARDIOVASCULAR RISK <40 mg/dl - HIGH CARDIOVASCULAR RISK Normal [facility] Comment on above: Performed By: #### T SH, LIPID, T4, FT3, CMP #### [facility] [address] [address] [address] Alicia Patel LDL CALC NORMAL SEE BELOW Normal [facility] Comment on above: Result Comment: <100 mg/dl OPTIMAL 100 - 129 mg/dl NEAR OR ABOVE OPTIMAL 130 - 159 mg/dl BORDERLINE HIGH 160 - 189 mg/dl HIGH >190 mg/dl VERY HIGH Performed By: #### T SH, LIPID, T4, FT3, CMP #### [facility] [address] [address] [address] Alicia Patel Triglyceride [Mass/Vol] 151 mg/dL Critically high <=150 [facility] Comment on above: Performed By: #### T SH, LIPID, T4, FT3, CMP #### [facility] [address] [place] [address] Dr. Alicia Patel VLDL CALC 30.2 mg/dL Normal [facility] Comment on above: Performed By: #### T SH, LIPID, T4, FT3, CMP #### [facility] [address] [place] [address] Dr. Alicia Patel PROF 14(COMP METB)on 08-21- 023 Albumin [Mass/Vol] 3.3 g/dL Critically low 3.4-5.0 [facility] Comment on above: Performed By: #### T SH, LIPID, T4, FT3, CMP #### [facility] [address] [address] [address] Alicia Patel Albumin/Globulin [Mass ratio] 0.9 {ratio} Normal [facility] Comment on above: Performed By: #### T SH, LIPID, T4, FT3, CMP #### [facility] [address] [address] [address] Alicia Patel ALP [Catalytic activity/Vol] 79 U/L Normal 46-116 [facility] Comment on above: Performed By: #### T SH, LIPID, T4, FT3, CMP #### [facility] [address] [address] [address] Alicia Patel ALT [Catalytic activity/Vol] 61 U/L Normal 16-63 [facility] Comment on above: Performed By: #### T SH, LIPID, T4, FT3, CMP #### [facility] [address] [place] [address] Dr. Alicia Patel Anion gap [Moles/Vol] 12.6 mmol/L Normal Th e [facility] Comment on above: Performed By: #### T SH, LIPID, T4, FT3, CMP #### [facility] [address] [place] [address] Dr. Alicia Patel AST [Catalytic activity/Vol] 39 U/L Critically high 15-37 [facility] Comment on above: Performed By: #### T SH, LIPID, T4, FT3, CMP #### [facility] [address] [place] [address] Dr. Alicia Patel Bilirubin [Mass/Vol] 0.7 mg/dL Normal 0.2-1.0 [facility] Comment on above: Performed By: #### T SH, LIPID, T4, FT3, CMP #### [facility] [address] [place] [address] Dr. Alicia Patel Calcium [Mass/Vol] 8.9 mg/dL Normal 8.5-10.1 [facility] Comment on above: Performed By: #### T SH, LIPID, T4, FT3, CMP #### [facility] [address] [place] [address] Dr. Alicia Patel Chloride [Moles/Vol] 111 mmol/L Critically high 98-107 [facility] Comment on above: Performed By: #### T SH, LIPID, T4, FT3, CMP #### [facility] [address] [place] [address] Dr. Alicia Patel CO2 [Moles/Vol] 24.0 mmol/L Normal 21.0-32.0 [facility] Comment on above: Performed By: #### T SH, LIPID, T4, FT3, CMP #### [facility] [address] [place] [address] Dr. Alicia Patel Creatinine [Mass/Vol] 1.80 mg/dL Critically high 0.70-1.30 [facility] Comment on above: Performed By: #### T SH, LIPID, T4, FT3, CMP #### [facility] [address] [place] [address] Dr. Alicia Patel EGFR-AF BELARUSIAN 44 mL/min/1.73m2 Critically low >=60 [facility] Comment on above: Performed By: #### T SH, LIPID, T4, FT3, CMP #### [facility] [address] [place] [address] Dr. Alicia Patel EGFR-NON AF BELARUSIAN 36 mL/min/1.73m2 Critically low >=60 [facility] Comment on above: Performed By: #### T SH, LIPID, T4, FT3, CMP #### [facility] [address] [place] [address] Dr. Alicia Patel Globulin (S) [Mass/Vol] 3.5 g/dL Normal [facility] Comment on above: Performed By: #### T SH, LIPID, T4, FT3, CMP #### [facility] [address] [place] [address] Dr. Alicia Patel Glucose [Mass/Vol] 118 mg/dL Critically high 74-106 [facility] Comment on above: Performed By: #### T SH, LIPID, T4, FT3, CMP #### [facility] [address] [place] [address] Dr. Alicia Patel Potassium [Moles/Vol] 4.6 mmol/L Normal 3.5-5.1 [facility] Comment on above: Performed By: #### T SH, LIPID, T4, FT3, CMP #### [facility] [address] [place] [address] Dr. Alicia Patel Protein [Mass/Vol] 6.8 g/dL Normal 6.4-8.2 [facility] Comment on above: Performed By: #### T SH, LIPID, T4, FT3, CMP #### [facility] [address] [place] [address] Dr. Alicia Patel Sodium [Moles/Vol] 143 mmol/L Normal 136-145 [facility] Comment on above: Performed By: #### T SH, LIPID, T4, FT3, CMP #### [facility] [address] [place] [address] Dr. Alicia Patel Urea nitrogen [Mass/Vol] 31.0 mg/dL Critically high 7.0-18.0 [facility] Comment on above: Performed By: #### T SH, LIPID, T4, FT3, CMP #### [facility] [address] [place] [address] Dr. Alicia Patel Urea nitrogen/Creatinine [Mass ratio] 17.2 mg/mg Normal [facility] Comment on above: Performed By: #### T SH, LIPID, T4, FT3, CMP #### [facility] [address] [place] [address] Dr. Alicia Patel T4on 08-21-2022 T4 [Mass/Vol] 7.70 ug/dL Normal 4.50-12.10 [facility] Comment on above: Performed By: #### T SH, LIPID, T4, FT3, CMP #### [facility] [address] [place] [address] Dr. Alicia Patel TSHon 08-21-2022 TSH 1.138 uIU/mL Normal 0.358-3.74 0 [facility] Comment on above: Performed By: #### T SH, LIPID, T4, FT3, CMP #### [facility] [address] [place] [address] Dr. Alicia Patel RENAL FUNCTION PANELon 08-18 Albumin [Mass/Vol] 3.3 g/dL Critically low 3.4-5.0 [facility] Comment on above: Performed By: #### U RTPCR #### [facility] [address] [place] [address] Dr. Alicia Patel Calcium [Mass/Vol] 8.3 mg/dL Critically low 8.5-10.1 [facility] Comment on above: Performed By: #### U RTPCR #### [facility] [address] [place] [address] Dr. Alicia Patel Chloride [Moles/Vol] 109 mmol/L Critically high 98-107 [facility] Comment on above: Performed By: #### U RTPCR #### [facility] [address] [address] [address] Alicia Patel CO2 [Moles/Vol] 22.1 mmol/L Normal 21.0-32.0 [facility] Comment on above: Performed By: #### U RTPCR #### [facility] [address] [address] [address] Alicia Patel Creatinine [Mass/Vol] 2.14 mg/dL Critically high 0.70-1.30 [facility] Comment on above: Performed By: #### U RTPCR #### [facility] [address] [address] [address] Alicia Patel EGFR-AF BELARUSIAN 36 mL/min/1.73m2 Critically low >=60 [facility] Comment on above: Performed By: #### U RTPCR #### [facility] [address] [address] [address] Alicia Patel EGFR-NON AF BELARUSIAN 30 mL/min/1.73m2 Critically low >=60 [facility] Comment on above: Performed By: #### U RTPCR #### [facility] [address] [address] [address] Alicia Patel Glucose [Mass/Vol] 102 mg/dL Normal 74-106 [facility] Comment on above: Performed By: #### U RTPCR #### [facility] [address] [address] [address] Alicia Patel Phosphate [Mass/Vol] 3.1 mg/dL Normal 2.6-4.7 [facility] Comment on above: Performed By: #### U RTPCR #### [facility] [address] [address] [address] Alicia Patel Potassium [Moles/Vol] 3.9 mmol/L Normal 3.5-5.1 [facility] Comment on above: Performed By: #### U RTPCR #### [facility] [address] [address] [address] Alicia Patel Sodium [Moles/Vol] 141 mmol/L Normal 136-145 [facility] Comment on above: Performed By: #### U RTPCR #### [facility] [address] [place], [place] [address] Dr. Alicia Patel Urea nitrogen [Mass/Vol] 41.0 mg/dL Critically high 7.0-18.0 [facility] Comment on above: Performed By: #### U RTPCR #### [facility] [id number] Alicia Patel ED Note-Physicianon 08-17-19 ED Note-Physician [id number]:127 Normal [facility] RAD - CT Reporton 08-17-[address]22 RAD - CT Report [id number]:127 [facility] RAD - MISCon 08-17-2022 RAD - MISC [id number]#[id number]:127 Normal [facility] RAD - MISC [id number]:127 [facility] Insurance Correspondence Off iceon 08-16-2022 Insurance Correspondence Office [id number]:127 [facility] Basic Metabolic Panelon 07-28 Creatinine Clr Calc Pharmacy 21.94 [facility] Comment on above: Result Comment: PERF ORMED BY: [place] [address] PATHOLOGIST FLUME TENDER DIANDRA LACY M.D. Performed By: #### P T #### [facility] [address] [place] [address] [place] Estimated GFR ( Yana 21 Normal [facility] Comment on above: Result Comment: GFR estimated reference range: According to KDOQI guidelines, <60 ml/min/1.73m2 is sufficient to diagnose a patient with chronic kidney disease. Performed By: #### P T #### [facility] [address] [place] [address] Estimated GFR (Non- Am 17 Normal [facility] Comment on above: Performed By: #### P T #### [facility] [address] [place] [address] Estimated glomerular filtrat ion rate (GFR) non- AmericanOrdered By: Hiral Interiano on 08-15-2022 GFR/1.73 sq M.predicted among non-blacks MDRD (S/P/Bld) [Vol rate/Area] 17 mL/Min [facility] Glucose Glucometer (BldC) [M ass/Vol]Ordered By: Hiral Interiano on 08-15-2022 Glucose [Mass/Vol] 135 mg/dL [facility] Comment on above: Random Glucose Refer ence Range is dependent on time and content of last meal. Glucose of more than 200 mg/dL in a nonstressed, ambulatory subject supports the diagnosis of Diabetes Mellitus. Glucose Poct Glucometerson 0 08-15-2022 Glucose [Mass/Vol] 135 mg/dL Normal [facility] Comment on above: Result Comment: [place] [facility] Glucose Reference Range is dependent on time and content of last meal. Glucose of more than 200 mg/dL in a nonstressed, ambulatory subject supports the diagnosis of Diabetes Mellitus. PERFORMED BY: [place] [address] PATHOLOGIST FLUME TENDER DIANDRA LACY M.D. Performed By: #### G LULS ####Point of Care testing, Glucose [Mass/Vol] 163 mg/dL Normal [facility] Comment on above: Result Comment: [place] [facility] Glucose Reference Range is dependent on time and content of last meal. Glucose of more than 200 mg/dL in a nonstressed, ambulatory subject supports the diagnosis of Diabetes Mellitus. PERFORMED BY: [place] [address] PATHOLOGIST FLUME TENDER DIANDRA LACY M.D. Performed By: #### P T #### [facility] [address] [place] [address] No Panel InformationOrdered By: Hiral Interiano on 08-15-2022 Estimated GFR () 21 mL/Min [facility] Comment on above: GFR estimated refere nce range: According to KDOQI guidelines, <60 ml/min/1.73m2 is sufficient to diagnose a patient with chronic kidney disease. Pharmacy Creatinine Clearance (Chem 21.94 [facility] Serum or plasma anion gap de terminationOrdered By: Hiral Interiano on 08-15-2022 Anion gap [Moles/Vol] 10.3 mmol/L Normal 6.0-15.0 [facility] Comment on above: Performed By: #### P T #### [facility] [address] Serum or plasma calcium alpesh urement (mass/volume)Ordered By: Hiral Interiano on 08-15-2022 Calcium [Mass/Vol] 7.7 mg/dL Low 8.2-10.2 [facility] Comment on above: Performed By: #### P T #### [facility] [address] [place] [address] Serum or plasma chloride adina surement (moles/volume)Ordered By: Hiral Interiano on 08-15-2022 Chloride [Moles/Vol] 112 mmol/L Normal 95-[address] [facility] Comment on above: Performed By: #### P T #### [address] Serum or plasma creatinine m easurement with calculation of estimated glomerular filtrOrdered By: Hiral Interiano on 08-15-2022 Creatinine [Mass/Vol] 3.46 mg/dL Significan t change up 0.64-1.27 [facility] Comment on above: Delta: 6.60 on 08/143 Performed By: #### P T #### [facility] [address] [place] [address] Serum or plasma glucose alpesh urement (mass/volume)Ordered By: Hiral Interiano on 08-15-2022 Glucose [Mass/Vol] 140 mg/dL High 70-100 [facility] Comment on above: ADA recommended refe rence rangeRandom Glucose Reference Range is dependent on time and content of last meal. Glucose of more than 200 mg/dL in a nonstressed, ambulatory subject supports the diagnosis of Diabetes Mellitus. Result Comment: [facility] Glucose Reference Range is dependent on time and content of last meal. Glucose of more than 200 mg/dL in a nonstressed, ambulatory subject supports the diagnosis of Diabetes Mellitus. ADA recommended reference range Performed By: #### P T #### [address] Serum or plasma potassium me asurement (moles/volume)Ordered By: Hiral Interiano on 08-15-2022 Potassium [Moles/Vol] 3.8 mmol/L Normal 3.5-5.1 [facility] Comment on above: Performed By: #### P T #### [address] Serum or plasma sodium measu rement (moles/volume)Ordered By: Hiral Interiano on 08-15-2022 Sodium [Moles/Vol] 140 mmol/L Normal 136-146 [facility] Comment on above: Performed By: #### P T #### [address] Serum or plasma total carbon dioxide measurement (moles/volume)Ordered By: Hiral Interiano on 08-15-2022 CO2 [Moles/Vol] 21.5 mmol/L Low 22.0-30.0 [facility] Comment on above: Performed By: #### P T #### [address] Serum or plasma urea nitroge n measurement (mass/volume)Ordered By: Hiral Interiano on 08-15-2022 Urea nitrogen [Mass/Vol] 45 mg/dL High 9-23 [facility] Comment on above: Performed By: #### P T #### [address] Aerobic Cultureon 08-14-2022 Aerobic Culture ORGANISM: Rosanna al bicans (O:CANALB) Quantity of Growth Light Growth Gram Stain Result 3+ Epithelial Cells 2+ White Blood Cells 3+ Gram Positive Cocci 2+ Gram Negative Bacilli PERFORMED BY: [facility] [address] [id number] PATHOLOGIST FLUME TENDER DIANDRA LACY M.D. [facility] Comment on above: Performed By: #### B MP #### [facility] [address] [place] [address] [facility] Basic Metabolic Panelon 07-28 Anion gap [Moles/Vol] 13.0 mmol/L Normal 6.0-15.0 [facility] Comment on above: Performed By: #### C BC, BMP ####[address] [place] [address] [facility] Calcium [Mass/Vol] 7.3 mg/dL Low 8.2-10.2 [facility] Comment on above: Performed By: #### C BC, BMP ####[address] [place] [address] [facility] Chloride [Moles/Vol] 109 mmol/L Normal 95-[address] [facility] Comment on above: Performed By: #### C BC, BMP ####[address] [place] [address] [facility] CO2 [Moles/Vol] 21.9 mmol/L Low 22.0-30.0 [facility] Comment on above: Performed By: #### C BC, BMP ####[address] [place] [address] [facility] Creatinine [Mass/Vol] 6.60 mg/dL Significan t change up 0.64-1.27 [facility] Comment on above: Performed By: #### C BC, BMP ####[address] [place] [address] [place] Creatinine Clr Calc Pharmacy 11.49 Normal [facility] Comment on above: Result Comment: PERF ORMED BY: [facility] [address] [id number] PATHOLOGIST FLUME TENDER DIANDRA LACY M.D. Performed By: #### C BC, BMP ####[address] [place] [address] [facility] Estimated GFR ( Yana 10 [facility] Comment on above: Result Comment: GFR estimated reference range: According to KDOQI guidelines, <60 ml/min/1.73m2 is sufficient to diagnose a patient with chronic kidney disease. Performed By: #### C BC, BMP ####[address] [place] [id number] [facility] Estimated GFR (Non- Am 8 [facility] Comment on above: Performed By: #### C BC, BMP ####[address] [id number] [facility] Glucose [Mass/Vol] 140 mg/dL High 70-100 [facility] Comment on above: Result Comment: [place] Glucose Reference Range is dependent on time and content of last meal. Glucose of more than 200 mg/dL in a nonstressed, ambulatory subject supports the diagnosis of Diabetes Mellitus. ADA recommended reference range Performed By: #### C BC, BMP ####[address] [place] [id number] [facility] Potassium [Moles/Vol] 3.9 mmol/L Normal 3.5-5.1 [facility] Comment on above: Performed By: #### C RUDOLPH, BMP ####[address] [id number] [facility] Sodium [Moles/Vol] 140 mmol/L Normal 136-146 [facility] Comment on above: Performed By: #### C RUDOLPH, BMP ####[address] [place] [id number] [facility] Urea nitrogen [Mass/Vol] 61 mg/dL High 9-23 [facility] Comment on above: Performed By: #### C BC, BMP ####[address] [place] [id number] [facility] Basophils Auto (Bld) [#/Vol] Ordered By: Hiral Interiano on 08-14-2022 Basophils (Bld) [#/Vol] 0.0 10*3/uL 0.0-0.2 [facility] Basophils/100 WBC Auto (Bld) Ordered By: Hiral Interiano on 08-14-2022 Basophils/100 WBC (Bld) 0.2 % . [facility] Complete Blood Count Auto Di ffon 08-14-2022 Basophils (Bld) [#/Vol] 0.0 10*3/uL Normal 0.0-0.2 [facility] Comment on above: Result Comment: PERF ORMED BY: [facility] [address] [place] [address] PATHOLOGIST FLUME TENDER DIANDRA LACY M.D. Performed By: #### C BC, BMP ####[address] [place] [id number] [facility] Basophils/100 WBC (Bld) 0.2 % Normal . [facility] Comment on above: Performed By: #### C BC, BMP ####[address] [address] [facility] Eosinophils (Bld) [#/Vol] 0.1 10*3/uL Normal 0.0-0.45 [facility] Comment on above: Performed By: #### C BC, BMP ####[address] [place] [id number] [facility] Eosinophils/100 WBC (Bld) 1.0 % Normal . [facility] Comment on above: Performed By: #### C BC, BMP ####[address] [id number] [facility] Erythrocyte distribution width (RBC) [Ratio] 13.5 % Normal 12.0-14.8 [facility] Comment on above: Performed By: #### C BC, BMP ####[address] [place] [id number] [facility] Hematocrit (Bld) [Volume fraction] 35.4 % Low 38.8-50.0 [facility] Comment on above: Performed By: #### C BC, BMP ####[address] [id number] [facility] Hemoglobin (Bld) [Mass/Vol] 12.0 g/dL Low 13.0-17.0 [facility] Comment on above: Performed By: #### C BC, BMP ####[facility] [place] [address] [facility] Lymphocytes (Bld) [#/Vol] 0.6 10*3/uL Low 1.00-4.8 [facility] Comment on above: Performed By: #### C BC, BMP ####[address] [address] [facility] Lymphocytes/100 WBC (Bld) 7.8 % Normal . [facility] Comment on above: Performed By: #### C RUDOLPH, BMP ####[address] [place] [address] [facility] MCH (RBC) [Entitic mass] 33.0 pg Normal 27.5-35.2 [facility] Comment on above: Performed By: #### C RUDOLPH, BMP ####[address] [id number] [facility] MCV (RBC) [Entitic vol] 97.3 fL Normal 83.5-101 [facility] Comment on above: Performed By: #### C RUDOLPH, BMP ####[address] [id number] [facility] Mean Corpuscular HGB Conc 33.9 g/dL Normal 32.5-35.6 [facility] Comment on above: Performed By: #### C RUDOLPH, BMP ####[address] [place] [id number] [facility] Monocytes (Bld) [#/Vol] 0.8 10*3/uL Normal 0.0-0.8 [facility] Comment on above: Performed By: #### C RUDOLPH, BMP ####[address] [id number] [facility] Monocytes/100 WBC (Bld) 11.4 % Normal . [facility] Comment on above: Performed By: #### C RUDOLPH, BMP ####[address] [id number] [facility] Neutrophils (Bld) [#/Vol] 5.9 10*3/uL Normal 1.8-7.7 [facility] Comment on above: Performed By: #### C RUDOLPH, BMP ####[address] [address] [facility] Neutrophils/100 WBC (Bld) 79.6 % Normal . [facility] Comment on above: Performed By: #### C RUDOLPH, BMP ####[address] [address] [facility] NRBC% 0.1 /100{WBC} Normal 0-0.5 [facility] Comment on above: Performed By: #### C RUDOLPH, BMP ####[address] [address] [facility] Platelet mean volume (Bld) [Entitic vol] 8.4 fL Normal 6.6-10.1 [facility] Comment on above: Performed By: #### C RUDOLPH, BMP ####[address] [address] [facility] Platelets (Bld) [#/Vol] 121 10*3/uL Low 150-450 [facility] Comment on above: Performed By: #### C RUDOLPH, BMP ####[address] [address] [facility] RBC (Bld) [#/Vol] 3.64 10*6/uL Low 3.90-5.60 [facility] Comment on above: Performed By: #### C RUDOLPH, BMP ####[address] [address] [facility] WBC (Bld) [#/Vol] 7.4 10*3/uL Normal 4.1-10.5 [facility] Comment on above: Performed By: #### C RUDOLPH, BMP ####[address] [address] [place] Eosinophils Auto (Bld) [#/Vo l]Ordered By: Hiral Interiano on 08-14-2022 Eosinophils (Bld) [#/Vol] 0.1 10*3/uL 0.0-0.45 [facility] Eosinophils/100 WBC Auto (Bl d)Ordered By: Hiral Interiano on 08-14-2022 Eosinophils/100 WBC (Bld) 1.0 % . [facility] Erythrocyte distribution wid th Auto (RBC) [Ratio]Ordered By: Hiral Interiano on 08-14-2022 Erythrocyte distribution width (RBC) [Ratio] 13.5 % 12.0-14.8 [facility] Glucose Poct Glucometerson 0 08-14-2022 Commemt1 Glu2: Cleaned Meter Normal [facility] Comment on above: Result Comment: PERF ORMED BY: [place] [address] PATHOLOGIST FLUME TENDER DIANDRA LACY M.D. Performed By: #### P T #### [facility] [address] [place] [address] [place] Glucose [Mass/Vol] 140 mg/dL Normal [facility] Comment on above: Result Comment: [place] [facility] Glucose Reference Range is dependent on time and content of last meal. Glucose of more than 200 mg/dL in a nonstressed, ambulatory subject supports the diagnosis of Diabetes Mellitus. Performed By: #### P T #### [facility] [address] [place], [place] [id number] [facility] Glucose [Mass/Vol] 125 mg/dL Normal [facility] Comment on above: Result Comment: [place] [facility] Glucose Reference Range is dependent on time and content of last meal. Glucose of more than 200 mg/dL in a nonstressed, ambulatory subject supports the diagnosis of Diabetes Mellitus. PERFORMED BY: [place] [address] PATHOLOGIST FLUME TENDER DIANDRA LACY M.D. Performed By: #### P T #### [address] [id number] [place] Glucose [Mass/Vol] 140 mg/dL Normal [facility] Comment on above: Result Comment: [place] [facility] Glucose Reference Range is dependent on time and content of last meal. Glucose of more than 200 mg/dL in a nonstressed, ambulatory subject supports the diagnosis of Diabetes Mellitus. PERFORMED BY: [place] [id number] PATHOLOGIST FLUME TENDER DIANDRA LACY M.D. Performed By: #### G LULS ####Point of Care testing, Commemt1 Glu2: Cleaned Meter Normal [facility] Comment on above: Result Comment: PERF ORMED BY: [place] [address] PATHOLOGIST FLUME TENDER DIANDRA LACY M.D. Performed By: #### G LULS ####Point of Care testing, Glucose [Mass/Vol] 175 mg/dL [facility] Comment on above: Result Comment: [facility] Glucose Reference Range is dependent on time [...] Cocci 2+ Gram Negative Bacilli PERFORMED BY: [place] [address] PATHOLOGIST FLUME TENDER DIANDRA LACY M.D. [facility] Comment on above: Performed By: #### B MP #### [address] Hematocrit Auto (Bld) [Volum e fraction]Ordered By: Hiral Interiano on 08-14-2022 Hematocrit (Bld) [Volume fraction] 35.4 % 38.8-50.0 [facility] Hemoglobin [Mass/volume] in BloodOrdered By: Hiral Interiano on 08-14-2022 Hemoglobin (Bld) [Mass/Vol] 12.0 g/dL 13.0-17.0 [facility] Leukocytes [#/volume] correc ike for nucleated erythrocytes in Blood by Automated counOrdered By: Hiral Interiano on 08-14-2022 WBC corrected for nucl RBC Auto (Bld) [#/Vol] 7.4 10*3/uL 4.1-10.5 [facility] Lymphocytes Auto (Bld) [#/Vo l]Ordered By: Hiral Interiano on 08-14-2022 Lymphocytes (Bld) [#/Vol] 0.6 10*3/uL 1.00-4.8 [facility] Lymphocytes/100 WBC Auto (Bl d)Ordered By: Hiral Interiano on 08-14-2022 Lymphocytes/100 WBC (Bld) 7.8 % . [facility] MCH Auto (RBC) [Entitic mass ]Ordered By: Hiral Interiano on 08-14-2022 MCH (RBC) [Entitic mass] 33.0 pg 27.5-35.2 [facility] MCHC Auto (RBC) [Mass/Vol]Or dered By: Hiral Interiano on 08-14-2022 MCHC (RBC) [Mass/Vol] 33.9 g/dL 32.5-35.6 [facility] MCV Auto (RBC) [Entitic vol] Ordered By: Hiral Interiano on 08-14-2022 MCV (RBC) [Entitic vol] 97.3 fL 83.5-101 [facility] Monocytes Auto (Bld) [#/Vol] Ordered By: Hiral Interiano on 08-14-2022 Monocytes (Bld) [#/Vol] 0.8 10*3/uL 0.0-0.8 [facility] Monocytes/100 WBC Auto (Bld) Ordered By: Hiral Interiano on 08-14-2022 Monocytes/100 WBC (Bld) 11.4 % . [facility] Neutrophils Auto (Bld) [#/Vo l]Ordered By: Hiral Interiano on 08-14-2022 Neutrophils (Bld) [#/Vol] 5.9 10*3/uL 1.8-7.7 [facility] Neutrophils/100 WBC Auto (Bl d)Ordered By: Hiral Interiano on 08-14-2022 Neutrophils/100 WBC (Bld) 79.6 % . [facility] No Panel InformationOrdered By: Hiral Interiano on 08-14-2022 Bedside Glucose Comment Glu2: cleaned meter [facility] Nucleated erythrocytes [Pres ence] in Blood by Automated countOrdered By: Hiral Interiano on 08-14-2022 Nucleated RBC Auto Ql (Bld) 0.1 /100{WBC} 0-0.5 [facility] Platelet mean volume Auto (B ld) [Entitic vol]Ordered By: Hiral Interiano on 08-14-2022 Platelet mean volume (Bld) [Entitic vol] 8.4 fL 6.6-10.1 [facility] Platelets Auto (Bld) [#/Vol] Ordered By: Hiral Interiano on 08-14-2022 Platelets (Bld) [#/Vol] 121 10*3/uL 150-450 [facility] RBC Auto (Bld) [#/Vol]Ordere d By: Hiral Interiano on 08-14-2022 RBC (Bld) [#/Vol] 3.64 10*6/uL 3.90-5.60 [facility] WBC Auto (Bld) [#/Vol]Ordere d By: Hiral Interiano on 08-14-2022 WBC (Bld) [#/Vol] 7.4 10*3/uL 4.1-10.5 [facility] Albumin Levelon 08-13-2022 Albumin [Mass/Vol] 3.0 g/dL Low 3.2-5.5 [facility] Comment on above: Result Comment: PERF ORMED BY: [place] [address] PATHOLOGIST FLUME TENDER DIANDRA LACY M.D. Performed By: #### B MP #### [address] Basic Metabolic Panelon 07-28 Anion gap [Moles/Vol] 18.4 mmol/L High 6.0-15.0 [facility] Comment on above: Order Comment: REDRA W Performed By: #### B MP #### [place] [address] [place] Calcium [Mass/Vol] 7.0 mg/dL Low 8.2-10.2 [facility] Comment on above: Order Comment: REDRA W Performed By: #### B MP #### [place] [address] [place] Chloride [Moles/Vol] 97 mmol/L Normal 95-[address] [facility] Comment on above: Order Comment: REDRA W Performed By: #### B MP #### [address] CO2 [Moles/Vol] 24.5 mmol/L Normal 22.0-30.0 [facility] Comment on above: Order Comment: REDRA W Performed By: #### B MP #### [address] Creatinine [Mass/Vol] 10.74 mg/dL Significan t change up 0.64-1.27 [facility] Comment on above: Order Comment: REDRA W Performed By: #### B MP #### [address] Creatinine Clr Calc Pharmacy 7.06 [facility] Comment on above: Order Comment: REDRA W Result Comment: PERF ORMED BY: [place] [address] PATHOLOGIST FLUME TENDER DIANDRA LACY M.D. Performed By: #### B MP #### [address] Estimated GFR ( Yana 6 [facility] Comment on above: Order Comment: REDRA W Result Comment: GFR estimated reference range: According to KDOQI guidelines, <60 ml/min/1.73m2 is sufficient to diagnose a patient with chronic kidney disease. Performed By: #### B MP #### [address] Estimated GFR (Non- Am 5 [facility] Comment on above: Order Comment: REDRA W Performed By: #### B MP #### [place] [address] [place] Glucose [Mass/Vol] 85 mg/dL Normal 70-100 [facility] Comment on above: Order Comment: REDRA W Result Comment: [place] om Glucose Reference Range is dependent on time and content of last meal. Glucose of more than 200 mg/dL in a nonstressed, ambulatory subject supports the diagnosis of Diabetes Mellitus. ADA recommended reference range Performed By: #### B MP #### [address] Potassium [Moles/Vol] 4.9 mmol/L Normal 3.5-5.1 [facility] Comment on above: Order Comment: REDRA W Performed By: #### B MP #### [address] Sodium [Moles/Vol] 135 mmol/L Low 136-146 [facility] Comment on above: Order Comment: REDRA W Performed By: #### B MP #### [address] Urea nitrogen [Mass/Vol] 72 mg/dL Significant change up 03-19 [facility] Comment on above: Order Comment: REDRA W Performed By: #### B MP #### [address] Body fluid albumin measureme nt (mass/volume)Ordered By: Alicia Perea on 08-13-2022 Albumin (Body fld) [Mass/Vol] 3.0 g/dL 3.2-5.5 [facility] Complete Blood Count Auto Di ffon 08-13-2022 Basophils (Bld) [#/Vol] 0.0 10*3/uL Normal 0.0-0.2 [facility] Comment on above: Result Comment: PERF ORMED BY: [place] [address] PATHOLOGIST FLUME TENDER DIANDRA LACY M.D. Performed By: #### C BC #### [address] Basophils/100 WBC (Bld) 0.5 % Normal . [facility] Comment on above: Performed By: #### C BC #### [address] Eosinophils (Bld) [#/Vol] 0.1 10*3/uL Normal 0.0-0.45 [facility] Comment on above: Performed By: #### C BC #### [address] Eosinophils/100 WBC (Bld) 0.9 % Normal . [facility] Comment on above: Performed By: #### C BC #### [address] Erythrocyte distribution width (RBC) [Ratio] 13.7 % Normal 12.0-14.8 [facility] Comment on above: Performed By: #### C BC #### [address] Hematocrit (Bld) [Volume fraction] 34.2 % Low 38.8-50.0 [facility] Comment on above: Performed By: #### C BC #### [address] Hemoglobin (Bld) [Mass/Vol] 11.6 g/dL Low 13.0-17.0 [facility] Comment on above: Performed By: #### C BC #### [address] Lymphocytes (Bld) [#/Vol] 0.9 10*3/uL Low 1.00-4.8 [facility] Comment on above: Performed By: #### C BC #### [address] Lymphocytes/100 WBC (Bld) 9.6 % Normal . [facility] Comment on above: Performed By: #### C BC #### [address] MCH (RBC) [Entitic mass] 32.9 pg Normal 27.5-35.2 [facility] Comment on above: Performed By: #### C BC #### [address] MCV (RBC) [Entitic vol] 96.5 fL Normal 83.5-101 [facility] Comment on above: Performed By: #### C BC #### [address] Mean Corpuscular HGB Conc 34.1 g/dL Normal 32.5-35.6 [facility] Comment on above: Performed By: #### C BC #### [facility] [address] [place] [address] [place] Monocytes (Bld) [#/Vol] 1.0 10*3/uL High 0.0-0.8 [facility] Comment on above: Performed By: #### C BC #### [facility] [address] [place] [address] [place] Monocytes/100 WBC (Bld) 9.8 % Normal . [facility] Comment on above: Performed By: #### C BC #### [facility] [address] Neutrophils (Bld) [#/Vol] 7.8 10*3/uL High 1.8-7.7 [facility] Comment on above: Performed By: #### C BC #### [facility] [address] Neutrophils/100 WBC (Bld) 79.2 % Normal . [facility] Comment on above: Performed By: #### C BC #### [facility] [address] NRBC% 0.1 /100{WBC} Normal 0-0.5 [facility] Comment on above: Performed By: #### C BC #### [facility] [address] Platelet mean volume (Bld) [Entitic vol] 8.7 fL Normal 6.6-10.1 [facility] Comment on above: Performed By: #### C BC #### [facility] [address] [place] [address] [place] Platelets (Bld) [#/Vol] 129 10*3/uL Low 150-450 [facility] Comment on above: Performed By: #### C BC #### [address] RBC (Bld) [#/Vol] 3.54 10*6/uL Low 3.90-5.60 [facility] Comment on above: Performed By: #### C BC #### [facility] [address] [place] [address] WBC (Bld) [#/Vol] 9.9 10*3/uL Normal 4.1-10.5 [facility] Comment on above: Performed By: #### C BC #### [facility] [address] [place] [address] [place] urethrocystogram retroon 08-13-2022 [place] urethrocystogram retro [facility] Main [place] [address] [place] [address] Fluoroscopy Report Signed Patient: Victorino Smyth MR#: [id number] : 1940 Acct:[id number] Age/Sex: 82 / M ADM Date: 08/11/22 Loc: Room: [address] [place] [address] Type: ADM IN Attending Dr: Hiral Interiano [...] Perez Jr., D.O.08/13/2022 2:25 PM Dictation Location: [place] [address] Transcribed By: [facility] 08/13/22 1425 Dictated By: Ifeanyi Perez Jr, DO 08/13/22 1421 Signed By: 08/13/22 1425 Normal [facility] Glucose Poct Glucometerson 0 08-13-2022 Commemt1 Glu2: Cleaned Meter Normal [facility] Comment on above: Result Comment: PERF ORMED BY: [place] [address] PATHOLOGIST FLUME TENDER DIANDRA LACY M.D. Performed By: #### B MP #### [facility] [address] Glucose [Mass/Vol] 91 mg/dL Normal [facility] Comment on above: Result Comment: [place] Glucose Reference Range is dependent on time and content of last meal. Glucose of more than 200 mg/dL in a nonstressed, ambulatory subject supports the diagnosis of Diabetes Mellitus. Performed By: #### B MP #### [facility] [address] Commemt1 Glu2: Cleaned Meter Normal [facility] Comment on above: Result Comment: PERF ORMED BY: [place] [address] PATHOLOGIST FLUME TENDER DIANDRA LACY M.D. Performed By: #### G LULS ####Point of Care testing, Glucose [Mass/Vol] 94 mg/dL Normal [facility] Comment on above: Result Comment: [facility] Glucose Reference Range is dependent on time and content of last meal. Glucose of more than 200 mg/dL in a nonstressed, ambulatory subject supports the diagnosis of Diabetes Mellitus. Performed By: #### G LULS ####Point of Care testing, Operative Reporton 3 Operative Report [id number]:127 Normal [facility] A1C with Estimated Average G [facility] 08-12-2022 Glucose [Mass/Vol] 212 mg/dL Normal [facility] Comment on above: Result Comment: PERF ORMED BY: [place] [address] PATHOLOGIST FLUME TENDER DIANDRA LACY M.D. Performed By: #### B MP #### [facility] [address] [place] [address] HbA1c (Bld) [Mass fraction] 9.0 % High 4.3-5.6 [facility] Comment on above: Result Comment: Incr eased risk for diabetes: 5.7 - 6.4 diabetes: >6.4 glycemic control for adults with diabetes: <7.0 Performed By: #### B MP #### [facility] [address] Basic Metabolic Panelon 07-28 Anion gap [Moles/Vol] 20.6 mmol/L High 6.0-15.0 [facility] Comment on above: Performed By: #### B MP, CBC ####[facility] [place] [id number] [facility] Calcium [Mass/Vol] 7.1 mg/dL Low 8.2-10.2 [facility] Comment on above: Performed By: #### B MP, CBC ####[facility] [place] [id number] [facility] Chloride [Moles/Vol] 104 mmol/L Normal 95-[address] [facility] Comment on above: Performed By: #### B MP, CBC ####[facility] [place] [id number] [facility] CO2 [Moles/Vol] 20.2 mmol/L Low 22.0-30.0 [facility] Comment on above: Performed By: #### B MP, CBC ####[place] [id number] [facility] Creatinine [Mass/Vol] 15.50 mg/dL Significan t change up 0.64-1.27 [facility] Comment on above: Performed By: #### B MP, CBC ####[place] [id number] [place] Creatinine Clr Calc Pharmacy 4.90 [facility] Comment on above: Result Comment: PERF ORMED BY: [facility] [address] [facility] [place] [address] PATHOLOGIST FLUME TENDER DIANDRA LACY M.D. Performed By: #### B MP, CBC ####[place] [id number] [place] [id number] [facility] Estimated GFR ( Yana 4 [facility] Comment on above: Result Comment: GFR estimated reference range: According to KDOQI guidelines, <60 ml/min/1.73m2 is sufficient to diagnose a patient with chronic kidney disease. Performed By: #### B MP, CBC ####[place] [id number] [facility] Estimated GFR (Non- Am 3 Normal [facility] Comment on above: Performed By: #### B MP, CBC ####[place] [id number] [facility] Glucose [Mass/Vol] 100 mg/dL Significant change down 70-100 [facility] Comment on above: Result Comment: [place] Glucose Reference Range is dependent on time and content of last meal. Glucose of more than 200 mg/dL in a nonstressed, ambulatory subject supports the diagnosis of Diabetes Mellitus. ADA recommended reference range Performed By: #### B MP, CBC ####[address] Potassium [Moles/Vol] 4.8 mmol/L Significan t change down 3.5-5.1 [facility] Comment on above: Performed By: #### B MP, CBC ####[address] Sodium [Moles/Vol] 140 mmol/L Significant change down 136-146 [facility] Comment on above: Performed By: #### B MP, CBC ####[address] Urea nitrogen [Mass/Vol] 133 mg/dL Significant change up 9-23 [facility] Comment on above: Performed By: #### B MP, CBC ####[address] Complete Blood Count Auto Di ffon 08-12-2022 Basophils (Bld) [#/Vol] 0.0 10*3/uL Normal 0.0-0.2 [facility] Comment on above: Result Comment: PERF ORMED BY: [facility] [address] [place] [address] PATHOLOGIST FLUME TENDER DIANDRA LACY M.D. Performed By: #### B MP, CBC ####[address] Basophils/100 WBC (Bld) 0.2 % Normal . [facility] Comment on above: Performed By: #### B MP, CBC ####[address] Eosinophils (Bld) [#/Vol] 0.0 10*3/uL Normal 0.0-0.45 [facility] Comment on above: Performed By: #### B MP, CBC ####[address] Eosinophils/100 WBC (Bld) 0.0 % Normal . [facility] Comment on above: Performed By: #### B MP, CBC ####[address] Erythrocyte distribution width (RBC) [Ratio] 13.6 % Normal 12.0-14.8 [facility] Comment on above: Performed By: #### B MP, CBC ####[address] Hematocrit (Bld) [Volume fraction] 33.6 % Low 38.8-50.0 [facility] Comment on above: Performed By: #### B MP, CBC ####[address] Hemoglobin (Bld) [Mass/Vol] 11.5 g/dL Low 13.0-17.0 [facility] Comment on above: Performed By: #### B MP, CBC ####[address] Lymphocytes (Bld) [#/Vol] 0.6 10*3/uL Low 1.00-4.8 [facility] Comment on above: Performed By: #### B MP, CBC ####[address] Lymphocytes/100 WBC (Bld) 4.4 % Normal . [facility] Comment on above: Performed By: #### B MP, CBC ####[address] MCH (RBC) [Entitic mass] 32.9 pg Normal 27.5-35.2 [facility] Comment on above: Performed By: #### B MP, CBC ####[address] MCV (RBC) [Entitic vol] 95.9 fL Normal 83.5-101 [facility] Comment on above: Performed By: #### B MP, CBC ####[address] Mean Corpuscular HGB Conc 34.3 g/dL Normal 32.5-35.6 [facility] Comment on above: Performed By: #### B MP, CBC ####[address] Monocytes (Bld) [#/Vol] 1.0 10*3/uL High 0.0-0.8 [facility] Comment on above: Performed By: #### B MP, CBC ####[address] Monocytes/100 WBC (Bld) 7.4 % Normal . [facility] Comment on above: Performed By: #### B MP, CBC ####[address] Neutrophils (Bld) [#/Vol] 11.8 10*3/uL High 1.8-7.7 [facility] Comment on above: Performed By: #### B MP, CBC ####[address] Neutrophils/100 WBC (Bld) 88.0 % Normal . [facility] Comment on above: Performed By: #### B MP, CBC ####[address] NRBC% 0.0 /100{WBC} Normal 0-0.5 [facility] Comment on above: Performed By: #### B MP, CBC ####[address] Platelet mean volume (Bld) [Entitic vol] 8.3 fL Normal 6.6-10.1 [facility] Comment on above: Performed By: #### B MP, CBC ####[place] [id number] [place] [id number] [facility] Platelets (Bld) [#/Vol] 162 10*3/uL Normal 150-450 [facility] Comment on above: Performed By: #### B MP, CBC ####[place] [address] [address] RBC (Bld) [#/Vol] 3.51 10*6/uL Low 3.90-5.60 [facility] Comment on above: Performed By: #### B MP, CBC ####[place] [address] [address] WBC (Bld) [#/Vol] 13.4 10*3/uL High 4.1-10.5 [facility] Comment on above: Performed By: #### B MP, CBC ####[place] [id number] [place] [id number] [facility] Consultation Noteon 08-12-19 Consultation Note [id number]:127 Normal [facility] Glucose Poct Glucometerson 0 08-12-2022 Glucose [Mass/Vol] 114 mg/dL Normal [facility] Comment on above: Result Comment: [facility] Glucose Reference Range is dependent on time and content of last meal. Glucose of more than 200 mg/dL in a nonstressed, ambulatory subject supports the diagnosis of Diabetes Mellitus. PERFORMED BY: [facility] [address] [place] [id number] PATHOLOGIST FLUME TENDER DIANDRA LACY M.D. Performed By: #### G JOHANNE #### Point of Care testing , Glucose [Mass/Vol] 111 mg/dL Normal [facility] Comment on above: Result Comment: [facility] Glucose Reference Range is dependent on time and content of last meal. Glucose of more than 200 mg/dL in a nonstressed, ambulatory subject supports the diagnosis of Diabetes Mellitus. PERFORMED BY: [place] [address] PATHOLOGIST FLUME TENDER DIANDRA LACY M.D. Performed By: #### G LULS #### Point of Care testing , Glucose [Mass/Vol] 96 mg/dL Normal [facility] Comment on above: Result Comment: [place] om Glucose Reference Range is dependent on time and content of last meal. Glucose of more than 200 mg/dL in a nonstressed, ambulatory subject supports the diagnosis of Diabetes Mellitus. PERFORMED BY: [place] [address] PATHOLOGIST FLUME TENDER DIANDRA LACY M.D. Performed By: #### B MP #### [address] Glucose [Mass/Vol] 91 mg/dL Normal [facility] Comment on above: Result Comment: [place] om Glucose Reference Range is dependent on time and content of last meal. Glucose of more than 200 mg/dL in a nonstressed, ambulatory subject supports the diagnosis of Diabetes Mellitus. PERFORMED BY: [place] [address] PATHOLOGIST FLUME TENDER DIANDRA LACY M.D. Performed By: #### B MP #### [address] Glucose [Mass/Vol] 93 mg/dL Normal [facility] Comment on above: Result Comment: [place] Glucose Reference Range is dependent on time and content of last meal. Glucose of more than 200 mg/dL in a nonstressed, ambulatory subject supports the diagnosis of Diabetes Mellitus. PERFORMED BY: [place] [address] PATHOLOGIST FLUME TENDER DIANDRA LACY M.D. Performed By: #### P T #### [address] Commemt1 Glu2: Cleaned Meter Normal [facility] Comment on above: Result Comment: PERF ORMED BY: [address] [address] PATHOLOGIST FLUME TENDER DIANDRA LACY M.D. Performed By: #### G LULS #### Point of Care testing , Glucose [Mass/Vol] 87 mg/dL Normal [facility] Comment on above: Result Comment: [facility] Glucose Reference Range is dependent on time [...] from glycated hemoglobin (Bld) [Mass/Vol] 212 mg/dL [facility] Hemoglobin A1c percentageOrd ered By: Hiral Interiano on 08-12-2022 HbA1c (Bld) [Mass fraction] 9.0 % 4.3-5.6 [facility] Comment on above: Increased risk for d iabetes: 5.7 - 6.4diabetes: >6.4glycemic control for adults with diabetes: <7.0 Anisocytosis LM Ql (Bld)Orde red By: Hiral Interiano on 08-11-2022 Anisocytosis Ql (Bld) Slight [facility] Band form neutrophils/100 WB C Manual cnt (Bld)Ordered By: Hiral Interiano on 08-11-2022 Band form neutrophils/100 WBC (Bld) 1 % 0-5 [facility] Basic Metabolic Panelon 07-28 Anion gap [Moles/Vol] 30.1 mmol/L High 6.0-15.0 [facility] Comment on above: Performed By: #### B MP #### [facility] [address] [place] [address] [place] Calcium [Mass/Vol] 7.2 mg/dL Low 8.2-10.2 [facility] Comment on above: Performed By: #### B MP #### [facility] [address] [place] [address] [place] Chloride [Moles/Vol] 99 mmol/L Normal 95-[address] [facility] Comment on above: Performed By: #### B MP #### [facility] [address] CO2 [Moles/Vol] 9.3 mmol/L Low 22.0-30.0 [facility] Comment on above: Performed By: #### B MP #### [facility] [address] [place] [address] [place] Creatinine Clr Calc Pharmacy 4.24 [facility] Comment on above: Result Comment: PERF ORMED BY: [place] [address] PATHOLOGIST FLUME TENDER DIANDRA LACY M.D. Performed By: #### B MP #### [address] Estimated GFR ( Yana 3 [facility] Comment on above: Result Comment: GFR estimated reference range: According to KDOQI guidelines, <60 ml/min/1.73m2 is sufficient to diagnose a patient with chronic kidney disease. Performed By: #### B MP #### [address] Estimated GFR (Non- Am 3 [facility] Comment on above: Performed By: #### B MP #### [address] Glucose [Mass/Vol] 507 mg/dL Off scale high 70-100 [facility] Comment on above: Result Comment: Resu lts called at 1409 on 08/11/22 Random Glucose Reference Range is dependent on time and content of last meal. Glucose of more than 200 mg/dL in a nonstressed, ambulatory subject supports the diagnosis of Diabetes Mellitus. ADA recommended reference range Performed By: #### B MP #### [address] Potassium [Moles/Vol] 7.4 mmol/L Off scale high 3.5-5.1 [facility] Comment on above: Result Comment: Resu lts called at 1409 on 08/11/22 Performed By: #### B MP #### [facility] [address] Sodium [Moles/Vol] 131 mmol/L Low 136-146 [facility] Comment on above: Performed By: #### B MP #### [facility] [address] Urea nitrogen [Mass/Vol] 163 mg/dL High 9-23 [facility] Comment on above: Performed By: #### B MP #### [address] Beta Hydroxybuterateon 08-11 Beta Hydroxybuterate 2.40 mmol/L High 0.05-0.27 [facility] Comment on above: Result Comment: PERF ORMED BY: [place] [address] PATHOLOGIST FLUME TENDER DIANDRA LACY M.D. Performed By: #### B MP #### [facility] [address] [place] [address] Beta-hydroxybutyric acid adina surementOrdered By: Alicia Perea on 08-11-2022 Beta hydroxybutyrate [Mass/Vol] 2.40 mmol/L 0.05-0.27 [facility] Wheeling cells [Presence] in Blo od by Light microscopyOrdered By: Hiral Interiano on 08-11-2022 Wheeling cells LM Ql (Bld) Slight [facility] CARDIAC GUIDO 3-6on 3 CK [Catalytic activity/Vol] 162 U/L Normal 39-308 [facility] Comment on above: Performed By: #### T SH, LIPID, T4, FT3, CMP #### [facility] [address] [place] [address] [address] Alicia Patel CK.MB [Mass/Vol] 5.52 ng/mL Critically high <=3.60 [facility] Comment on above: Performed By: #### T SH, LIPID, T4, FT3, CMP #### [facility] [address] [place] [address] [address] Alicia Patel HSTROP 19.7 pg/mL Normal 4.0-76.1 [facility] Comment on above: Result Comment: CUT- OFF POINTS HAVE BEEN ESTABLISHED BASED ON THE FOURTH UNIVERSAL DEFINITIONS OF MYOCARDIAL INFARCTION. THE UPPER REFERENCE LIMIT (URL) OF TROPONIN, DEFINED THE 99TH PERCENTILE OF cTnI DISTRIBUTION IN A REFERENCE POPULATION, HAS BEEN CONFIRMED THE DECISION THRESHOLD FOR TX DIAGNOSIS. Performed By: #### T SH, LIPID, T4, FT3, CMP #### [facility] [address] [place] [address] Dr. Alicia Patel CK [Catalytic activity/Vol] 150 U/L Normal 39-308 [facility] Comment on above: Performed By: #### T SH, LIPID, T4, FT3, CMP #### [facility] [address] [place] [address] Dr. Alicia ARAIZA.MB [Mass/Vol] 4.99 ng/mL Critically high <=3.60 [facility] Comment on above: Performed By: #### T SH, LIPID, T4, FT3, CMP #### [facility] [address] [place] [address] Dr. Alicia Patel HSTROP 16.9 pg/mL Normal 4.0-76.1 [facility] Comment on above: Result Comment: CUT- OFF POINTS HAVE BEEN ESTABLISHED BASED ON THE FOURTH UNIVERSAL DEFINITIONS OF MYOCARDIAL INFARCTION. THE UPPER REFERENCE LIMIT (URL) OF TROPONIN, DEFINED THE 99TH PERCENTILE OF cTnI DISTRIBUTION IN A REFERENCE POPULATION, HAS BEEN CONFIRMED THE DECISION THRESHOLD FOR TX DIAGNOSIS. Performed By: #### T SH, LIPID, T4, FT3, CMP #### [facility] [address] [place] [address] Dr. Alicia Patel CARDIAC GUIDO ADMITon 023 CK [Catalytic activity/Vol] 128 U/L Normal 39-308 [facility] Comment on above: Performed By: #### T SH, LIPID, T4, FT3, CMP #### [facility] [address] [place] [address] Dr. Alicia Patel CK.MB [Mass/Vol] 4.95 ng/mL Critically high <=3.60 [facility] Comment on above: Performed By: #### T SH, LIPID, T4, FT3, CMP #### [facility] [address] [place] [address] Dr. Alicia Patel HSTROP 18.0 pg/mL Normal 4.0-76.1 [facility] Comment on above: Result Comment: CUT- OFF POINTS HAVE BEEN ESTABLISHED BASED ON THE FOURTH UNIVERSAL DEFINITIONS OF MYOCARDIAL INFARCTION. THE UPPER REFERENCE LIMIT (URL) OF TROPONIN, DEFINED THE 99TH PERCENTILE OF cTnI DISTRIBUTION IN A REFERENCE POPULATION, HAS BEEN CONFIRMED THE DECISION THRESHOLD FOR TX DIAGNOSIS. Performed By: #### T SH, LIPID, T4, FT3, CMP #### [facility] [address] [place] [address] Dr. Alicia Patel LIZZY 188 ng/mL Critically high 16-96 [facility] Comment on above: Performed By: #### T SH, LIPID, T4, FT3, CMP #### [facility] [address] [place] [address] Dr. Alicia Patel CBC AUTO DIFFon 08-11-2022 BASO # 0.0 103/ul Normal 0.0-0.1 [facility] Comment on above: Performed By: #### T SH, LIPID, T4, FT3, CMP #### [facility] [address] [place] [address] Dr. Alicia Patel Basophils/100 WBC (Bld) 0.3 % Normal 0.2-2.0 [facility] Comment on above: Performed By: #### T SH, LIPID, T4, FT3, CMP #### [facility] [address] [place] [address] Dr. Alicia Patel EO # 0.2 103/ul Normal 0.0-0.7 [facility] Comment on above: Performed By: #### T SH, LIPID, T4, FT3, CMP #### [facility] [address] [place] [address] Dr. Alicia Patel Eosinophils/100 WBC (Bld) 1.8 % Normal 0.9-7.0 [facility] Comment on above: Performed By: #### T SH, LIPID, T4, FT3, CMP #### [facility] [address] [place] [address] Dr. Alicia Patel Erythrocyte distribution width (RBC) [Ratio] 13.2 % Normal 11.0-15.0 [facility] Comment on above: Performed By: #### T SH, LIPID, T4, FT3, CMP #### [facility] [address] [place] [address] Dr. Alicia Patel Hematocrit (Bld) [Volume fraction] 36.0 % Critically low 42.0-54.0 [facility] Comment on above: Performed By: #### T SH, LIPID, T4, FT3, CMP #### [facility] [address] [place] [address] Dr. Alicia Patel Hemoglobin (Bld) [Mass/Vol] 12.0 g/dL Critically low 14.0-18.0 [facility] Comment on above: Performed By: #### T SH, LIPID, T4, FT3, CMP #### [facility] [address] [place] [address] Dr. Alicia Patel IG # 0.34 10e3/ul Critically high 0.00-0.03 [facility] Comment on above: Performed By: #### T SH, LIPID, T4, FT3, CMP #### [facility] [address] [place] [address] Dr. Alicia Patel IG % 3.8 % Critically high 0.0-0.5 [facility] Comment on above: Performed By: #### T SH, LIPID, T4, FT3, CMP #### [facility] [address] [place] [address] Dr. Alicia Patel LYMPH # 0.5 103/ul Critically low 1.2-3.8 [facility] Comment on above: Performed By: #### T SH, LIPID, T4, FT3, CMP #### [facility] [address] [place] [address] Dr. Alicia Patel Lymphocytes/100 WBC (Bld) 5.9 % Critically low 20.5-60.0 [facility] Comment on above: Performed By: #### T SH, LIPID, T4, FT3, CMP #### [facility] [address] [place] [address] Dr. Alicia Patel MANUAL DIFF REQ NO Normal [facility] Comment on above: Performed By: #### T SH, LIPID, T4, FT3, CMP #### [facility] [address] [place] [address] Dr. Alicia Patel MCH (RBC) [Entitic mass] 32.3 pg Normal 25.9-34.0 [facility] Comment on above: Performed By: #### T SH, LIPID, T4, FT3, CMP #### [facility] [address] [place] [address] Dr. Alicia Patel MCHC (RBC) [Mass/Vol] 33.3 g/dL Normal 29.9-35.2 [facility] Comment on above: Performed By: #### T SH, LIPID, T4, FT3, CMP #### [facility] [address] [place] [address] Dr. Alicia Patel MCV (RBC) [Entitic vol] 97.0 fL Critically high 80.0-94.0 [facility] Comment on above: Performed By: #### T SH, LIPID, T4, FT3, CMP #### [facility] [address] [place] [address] Dr. Alicia Patel MONO # 0.5 103/ul Normal 0.3-0.8 [facility] Comment on above: Performed By: #### T SH, LIPID, T4, FT3, CMP #### [facility] [address] [place] [address] Dr. Alicia Patel Monocytes/100 WBC (Bld) 5.5 % Normal 1.7-12.0 [facility] Comment on above: Performed By: #### T SH, LIPID, T4, FT3, CMP #### [facility] [address] [place] [address] Dr. Alicia Patel NEUT # 7.5 103/ul Critically high 1.4-6.5 [facility] Comment on above: Performed By: #### T SH, LIPID, T4, FT3, CMP #### [facility] [address] [place] [address] Dr. Alicia Patel Neutrophils/100 WBC (Bld) 82.7 % Critically high 43.0-75.0 [facility] Comment on above: Performed By: #### T SH, LIPID, T4, FT3, CMP #### [facility] [address] [place] [address] Dr. Alicia Patel Platelet mean volume (Bld) [Entitic vol] 10.2 fL Normal 9.5-13.5 [facility] Comment on above: Performed By: #### T SH, LIPID, T4, FT3, CMP #### [facility] [address] [address] [address] Alicia Patel PLT 191 103/ul Normal 150-450 [facility] Comment on above: Performed By: #### T SH, LIPID, T4, FT3, CMP #### [facility] [address] [place] [address] Dr. Alicia Patel RBC 3.71 106/ul Critically low 4.70-6.10 [facility] Comment on above: Performed By: #### T SH, LIPID, T4, FT3, CMP #### [facility] [address] [place] [address] Dr. Alicia Patel WBC 9.0 103/ul Normal 4.0-11.0 [facility] Comment on above: Performed By: #### T SH, LIPID, T4, FT3, CMP #### [facility] [address] [place] [address] ABD/PELVIS WO CONon [...] ILA GALLEGO Date: 2022-08-11 08:38 Normal [facility] Covid-19 PCR (CVDTBH)on 07-28 SARS-CoV-2 (COVID-19) RNA SAVANNAH+probe Ql (Unsp spec) Not detected Normal NOT DETECTED [facility] Comment on above: Result Comment: [...] for this test is supported by the Banks of [employer] and Human Service's declaration that [...] T SH, LIPID, T4, FT3, CMP #### [facility] [address] [address] [address] Alicia Patel Diff and CBCon 08-11-2022 Anisocytosis Ql (Bld) Slight Normal [facility] Comment on above: Performed By: #### P T #### [address] Band form neutrophils/100 WBC (Bld) 1 % Normal 0-5 [facility] Comment on above: Performed By: #### P T #### [facility] [address] Crenated RBC Slight Normal [facility] Comment on above: Performed By: #### P T #### [facility] [address] Erythrocyte distribution width (RBC) [Ratio] 13.8 % Normal 12.0-14.8 [facility] Comment on above: Performed By: #### P T #### [facility] [address] Hematocrit (Bld) [Volume fraction] 38.1 % Low 38.8-50.0 [facility] Comment on above: Performed By: #### P T #### [address] Hemoglobin (Bld) [Mass/Vol] 12.5 g/dL Low 13.0-17.0 [facility] Comment on above: Performed By: #### P T #### [address] Lymphocytes/100 WBC (Bld) 5 % Low 18-42 [facility] Comment on above: Performed By: #### P T #### [address] MCH (RBC) [Entitic mass] 32.5 pg Normal 27.5-35.2 [facility] Comment on above: Performed By: #### P T #### [address] MCV (RBC) [Entitic vol] 99.0 fL Normal 83.5-101 [facility] Comment on above: Performed By: #### P T #### [address] Mean Corpuscular HGB Conc 32.8 g/dL Normal 32.5-35.6 [facility] Comment on above: Performed By: #### P T #### [address] Microcytosis Slight Normal [facility] Comment on above: Performed By: #### P T #### [address] Monocytes/100 WBC (Bld) 1 % Low 2-11 [facility] Comment on above: Performed By: #### P T #### [address] Platelet Estimate Normal Normal Normal [facility] Comment on above: Performed By: #### P T #### [address] Platelet mean volume (Bld) [Entitic vol] 8.8 fL Normal 6.6-10.1 [facility] Comment on above: Performed By: #### P T #### [address] Platelet Morphology Normal Normal Normal [facility] Comment on above: Result Comment: PERF ORMED BY: [place] [address] PATHOLOGIST FLUME TENDER DIANDRA LACY M.D. Performed By: #### P T #### [address] Platelets (Bld) [#/Vol] 203 10*3/uL Normal 150-450 [facility] Comment on above: Performed By: #### P T #### [address] Poikilocytosis Slight Normal [facility] Comment on above: Performed By: #### P T #### [address] RBC (Bld) [#/Vol] 3.85 10*6/uL Low 3.90-5.60 [facility] Comment on above: Performed By: #### P T #### [address] Segmented neutrophils/100 WBC (Bld) 94 % High 50-70 [facility] Comment on above: Performed By: #### P T #### [facility] [address] [place] [address] [place] WBC (Bld) [#/Vol] 9.1 10*3/uL Normal 4.1-10.5 [facility] Comment on above: Performed By: #### P T #### [facility] [address] [place] [address] ECG 12 lead ECGon 08-11-2022 ECG 12 lead ECG [facility] [place] [address] Electrocardiograph Report Signed Patient: Victorino Smyth MR#: [id number] : 1940 Acct:[id number] Age/Sex: 82 / M ADM Date: 08/11/22 Loc: 4 Room: [address] [place] [address] Type: ADM IN Attending Dr: Hiral Interiano [...] By: MUS Signed By Yogesh Cisneros DO 08/13 1820 Normal [facility] ECG 12 lead ECG [facility] [address] [place] [id number] Electrocardiograph Report Signed Patient: Victorino Smyth MR#: [id number] : 1940 Acct:[id number] Age/Sex: 82 / M ADM Date: 08/11/22 Loc: Room: 5M7313-8 Type: ADM IN Attending Dr: Hiral Interiano [...] When compared with ECG of 28-JUN-2019 20:47, [place] interval has increased Confirmed by YOGESH CISNEROS DO ([id number]) on 08/11/2022 6:42:37 PM Referred By: Electronically Signed By:YOGESH CISNEROS DO Transcribed By: MUS Signed By Yogesh Cisneros DO 08/11 1842 Normal [facility] ER URINE PROFILEon 3 Bilirubin Ql (U) Negative Normal NEGATIVE [facility] Comment on above: Performed By: #### T SH, LIPID, T4, FT3, CMP #### [facility] [address] [place] [address] Dr. Alicia Patel Clarity (U) CLEAR Normal CLEAR [facility] Comment on above: Performed By: #### T SH, LIPID, T4, FT3, CMP #### [facility] [address] [place] [address] Dr. Alicia Patel Color (U) LT. YELLOW Normal YELLOW [facility] Comment on above: Performed By: #### T SH, LIPID, T4, FT3, CMP #### [facility] [address] [address] [address] Alicia Patel ERUAHD A micrscopic examina tion will be performed if indicated. Normal [facility] Comment on above: Performed By: #### T SH, LIPID, T4, FT3, CMP #### [facility] [address] [place] [address] Dr. Alicia Patel Glucose Ql (U) Negative Normal NEGATIVE [facility] Comment on above: Performed By: #### T SH, LIPID, T4, FT3, CMP #### [facility] [address] [address] [address] Alicia Patel Hemoglobin Ql (U) SMALL Abnormal NEGATIVE [facility] Comment on above: Performed By: #### T SH, LIPID, T4, FT3, CMP #### [facility] [address] [address] [address] Alicia Patel Ketones Ql (U) Negative Normal NEGATIVE [facility] Comment on above: Performed By: #### T SH, LIPID, T4, FT3, CMP #### [facility] [address] [address] [address] Alicia Patel LEUKOCYTES Negative Normal NEGATIVE [facility] Comment on above: Performed By: #### T SH, LIPID, T4, FT3, CMP #### [facility] [address] [place] [address] Dr. Alicia Patel Nitrite Ql (U) Negative Normal NEGATIVE [facility] Comment on above: Performed By: #### T SH, LIPID, T4, FT3, CMP #### [facility] [address] [place] [address] Dr. Alicia Patel pH (U) 6.0 [pH] Normal 5-9 [facility] Comment on above: Performed By: #### T SH, LIPID, T4, FT3, CMP #### [facility] [address] [place] [address] Dr. Alicia Patel Protein (U) [Mass/Vol] 100 mg/dL Abnormal NEGAT ОЛЕГ/ TRACE [facility] Comment on above: Performed By: #### T SH, LIPID, T4, FT3, CMP #### [facility] [address] [address] [address] Alicia Patel SPEC GRAVITY 1.015 Normal 1.005-<=1. 025 [facility] Comment on above: Performed By: #### T SH, LIPID, T4, FT3, CMP #### [facility] [address] [address] [address] Alicia Patel UR MICRO IND INDICATED Normal [facility] Comment on above: Performed By: #### T SH, LIPID, T4, FT3, CMP #### [facility] [address] [place], [place] [address] Dr. Alicia Patel Urobilinogen Qn (U) 0.2 {Wil'U}/dL Normal 0.2 - 1. 0 [facility] Comment on above: Performed By: #### T SH, LIPID, T4, FT3, CMP #### [facility] [address] [address] [address] Alicia Patel Glucose Poct Glucometerson 0 08-11-2022 Glucose [Mass/Vol] 282 mg/dL Normal [facility] Comment on above: Result Comment: [place] om Glucose Reference Range is dependent on time and content of last meal. Glucose of more than 200 mg/dL in a nonstressed, ambulatory subject supports the diagnosis of Diabetes Mellitus. PERFORMED BY: [place] [address] PATHOLOGIST FLUME TENDER DIANDRA LACY M.D. Performed By: #### P T #### [address] Commemt1 Glu2: Cleaned Meter [facility] Comment on above: Result Comment: PERF ORMED BY: [place] [address] PATHOLOGIST FLUME TENDER DIANDRA LACY M.D. Performed By: #### G LULS ####Point of Care testing, Glucose [Mass/Vol] 253 mg/dL Normal [facility] Comment on above: Result Comment: [place] Glucose Reference Range is dependent on time and content of last meal. Glucose of more than 200 mg/dL in a nonstressed, ambulatory subject supports the diagnosis of Diabetes Mellitus. Performed By: #### G LULS ####Point of Care testing, Commemt1 Glu2: Cleaned Meter [facility] Comment on above: Result Comment: PERF ORMED BY: [place] [address] PATHOLOGIST FLUME TENDER DIANDRA LACY M.D. Performed By: #### P T #### [address] Glucose [Mass/Vol] 304 mg/dL Normal [facility] Comment on above: Result Comment: [place] om Glucose Reference Range is dependent on time and content of last meal. Glucose of more than 200 mg/dL in a nonstressed, ambulatory subject supports the diagnosis of Diabetes Mellitus. Performed By: #### P T #### [address] Commemt1 Normal [facility] Comment on above: Result Comment: Glu2 : Result Not Confirmed PERFORMED BY: [place] [address] PATHOLOGIST FLUME TENDER DIANDRA LACY M.D. Performed By: #### B MP #### [address] Glucose [Mass/Vol] 440 mg/dL Off scale [facility] Comment on above: Result Comment: [place] Glucose Reference Range is dependent on time and content of last meal. Glucose of more than 200 mg/dL in a nonstressed, ambulatory subject supports the diagnosis of Diabetes Mellitus. Performed By: #### B MP #### [address] Hepatitis Acute Panelon 07-28 HBsAg Screen Negative Normal Negative [facility] Comment on above: Order Comment: DRAW ALL LABS WITH TROP AT 1647 Performed By: #### H EPACUTE #### [facility] , Hepatitis A Antibody IgM Negative Normal Negative [facility] Comment on above: Order Comment: DRAW ALL LABS WITH TROP AT 1647 Performed By: #### H EPACUTE #### [facility] , Hepatitis B Core Antibody IgM Negative Normal Negative [facility] Comment on above: Order Comment: DRAW ALL LABS WITH TROP AT 1647 Performed By: #### H EPACUTE #### [facility] , Hepatitis C Virus Antibody Non-Reactive Normal Non Reactive [facility] Comment on above: Order Comment: DRAW ALL LABS WITH TROP AT 1647 Performed By: #### H EPACUTE #### [facility] , Interpretation Hepatitis C Normal . [facility] Comment on above: Order Comment: DRAW ALL LABS WITH TROP AT 1647 Result Comment: Not infected with HCV unless early or acute infection is suspected (which may be delayed in an immunocompromised individual), or other evidence exists to indicate HCV infection. Performed at: - [facility] [id number] Waredresser: Lee Bob PhD, Phone: [phone] PERFORMED BY: [facility] [address] [facility] [address] PATHOLOGIST FLUME TENDER DIANDRA LACY M.D. Performed By: #### H EPACUTE #### [facility] , Hepatitis B virus surface Ag [Presence] in Serum or Plasma by ImmunoassayOrdered By: Alicia Perea on 08-11-2022 HBV surface Ag IA Ql Negative Negative [facility] Hepatitis C virus IgG Ab [Pr esence] in Serum or Plasma by ImmunoassayOrdered By: Alicia Perea on 08-11-2022 HCV IgG IA Ql Non-Reactive Non Reactive [facility] Hepatitis C virus RNA [Units /volume] (viral load) in Serum or Plasma by SAVANNAH with probOrdered By: Alicia Perea on 08-11-2022 HCV RNA SAVANNAH+probe Qn N/A [facility] Hepatitis C virus RNA [log u nits/volume] (viral load) in Serum or Plasma by SAVANNAH withOrdered By: Alicia Perea on 08-11-2022 HCV RNA SAVANNAH+probe [Log units/Vol] N/A [facility] - CoagulationOrde red By: Hiral Interiano on 08-11-2022 PT Coag (PPP) [Time] 12.2 s 9.0-12.[address] [facility] Lymphocytes/100 WBC Manual c nt (Bld)Ordered By: Hiral Interiano on 08-11-2022 Lymphocytes/100 WBC (Bld) 5 % 18-42 [facility] Microcytes LM Ql (Bld)Ordere d By: Hiral Interiano on 08-11-2022 Microcytes Ql (Bld) Slight [facility] Monocytes/100 WBC Manual cnt (Bld)Ordered By: Hiral Interiano on 08-11-2022 Monocytes/100 WBC (Bld) 1 % 2-11 [facility] No Panel InformationOrdered By: Alicia Perea on 08-11-2022 Hepatitis A IgM Antibody Negative Negative [facility] Hepatitis B Core IgM Antibody Negative Negative [facility] Hepatitis C Interpretation See comment . [facility] Comment on above: Not infected with HC V unless early or acute infection issuspected (which may be delayed in an immunocompromisedindividual), or other evidence exists to indicate HCVinfection.Performed at: [facility] [place] [id number] Director: Lee Bob PhD, Phone: [phone] Hepatitis C RNA Quantitative N/A [facility] POINT OF CARE GLUCOSEon 07-28 Glucose [Mass/Vol] 132 mg/dL Critically high 74-106 [facility] Comment on above: Performed By: #### T SH, LIPID, T4, FT3, CMP #### [facility] [address] [address] [address] Alicia Patel Glucose [Mass/Vol] 117 mg/dL Critically high 74-106 [facility] Comment on above: Performed By: #### T SH, LIPID, T4, FT3, CMP #### [facility] [address] [address] [address] Alicia Patel Glucose [Mass/Vol] 95 mg/dL Normal 74-106 [facility] Comment on above: Performed By: #### P OCGLUC #### [facility] [address] [address] [address] Alicia Patel PROF CHEM 8 (BAS METB)on Creatinine [Mass/Vol] 17.89 mg/dL High 0.64-1.27 Th [facility] Comment on above: Performed By: #### T SH, LIPID, T4, FT3, CMP #### [facility] [address] [address] [address] Alicia Patel Performed By: #### B MP #### [facility] [address] Anion gap [Moles/Vol] 29.5 mmol/L Normal [facility] Comment on above: Performed By: #### T SH, LIPID, T4, FT3, CMP #### [facility] [address] [address] [address] Alicia Patel Calcium [Mass/Vol] 7.7 mg/dL Critically low 8.5-10.1 [facility] Comment on above: Performed By: #### T SH, LIPID, T4, FT3, CMP #### [facility] [address] [place] [address] [address] Alicia Patel Chloride [Moles/Vol] 102 mmol/L Normal 98-107 [facility] Comment on above: Performed By: #### T SH, LIPID, T4, FT3, CMP #### [facility] [address] [place] [address] Dr. Alicia Patel CO2 [Moles/Vol] 13.5 mmol/L Critically low 21.0-32.0 [facility] Comment on above: Performed By: #### T SH, LIPID, T4, FT3, CMP #### [facility] [address] [place] [address] Dr. Alicia Patel EGFR-AF BELARUSIAN 3 mL/min/1.73m2 Critically low >=60 [facility] Comment on above: Performed By: #### T SH, LIPID, T4, FT3, CMP #### [facility] [address] [address] [address] Alicia Patel EGFR-NON AF BELARUSIAN 3 mL/min/1.73m2 Critically low >=60 [facility] Comment on above: Performed By: #### T SH, LIPID, T4, FT3, CMP #### [facility] [address] [place] [address] Dr. Alicia Patel Glucose [Mass/Vol] 105 mg/dL Normal 74-106 [facility] Comment on above: Performed By: #### T SH, LIPID, T4, FT3, CMP #### [facility] [address] [place] [address] Dr. Alicia Patel Potassium [Moles/Vol] 7.0 mmol/L Critically high 3.5-5.1 [facility] Comment on above: Performed By: #### T SH, LIPID, T4, FT3, CMP #### [facility] [address] [place] [address] [address] Alicia Patel Sodium [Moles/Vol] 138 mmol/L Normal 136-145 [facility] Comment on above: Performed By: #### T SH, LIPID, T4, FT3, CMP #### [facility] [address] [place] [address] [address] Alicia Patel Urea nitrogen [Mass/Vol] 156.0 mg/dL Critically high 7.0-18.0 [facility] Comment on above: Performed By: #### T SH, LIPID, T4, FT3, CMP #### [facility] [address] [place] [address] [address] Alicia Patel Urea nitrogen/Creatinine [Mass ratio] 8.7 mg/mg Normal [facility] Comment on above: Performed By: #### T SH, LIPID, T4, FT3, CMP #### [facility] [address] [place] [address] [address] Alicia Patel Platelet adequacy [Presence] in Blood by Light microscopyOrdered By: Hiral Interiano on 08-11-2022 Platelets LM Ql (Bld) Normal Normal [facility] Platelet morphology finding [Identifier] in BloodOrdered By: Hiral Interiano on 08-11-2022 Platelet morphology finding Nom (Bld) Normal Normal [facility] Platelet poor plasma interna tional normalized ratio (INR) by coagulation assay (relatOrdered By: Hiral Interiano on 08-11-2022 INR Coag (PPP) [Relative time] 1.0 {INR} [facility] Comment on above: INR Therapeutic Rang [...] on 08-11-2022 Poikilocytosis LM Ql (Bld) Slight [facility] Prothrombin Time INRon 08-11 INR Coag (PPP) [Relative time] 1.0 {INR} Normal [facility] Comment on above: Result Comment: INR [...] heart valves: 3 - 4.5 PERFORMED BY: [place] [address] PATHOLOGIST FLUME TENDER DIANDRA LACY M.D. Performed By: #### P T #### [facility] [address] [place] [address] PT Coag (PPP) [Time] 12.2 s Normal 9.0-12.[address] [facility] Comment on above: Performed By: #### P T #### [facility] [address] [place] [address] RBC morphologyOrdered By: Dnoal Interiano on 08-11-2022 RBC morphology finding Nom (Bld) N/A [facility] Segmented neutrophils/100 WB C Manual cnt (Bld)Ordered By: Hiral Interiano on 08-11-2022 Segmented neutrophils/100 WBC (Bld) 94 % 50-70 [facility] Troponin I High Sensitivityo n 08-11-2022 Troponin I High Sensitivity 42 pg/mL High 0-20 [facility] Comment on above: Result Comment: PERF ORMED BY: [place] [address] PATHOLOGIST FLUME TENDER DIANDRA LACY M.D. Performed By: #### H S TROP ####[facility] [id number] [place] [address] Troponin I High Sensitivity 16 pg/mL Normal 0-20 [facility] Comment on above: Result Comment: PERF ORMED BY: [place] [address] PATHOLOGIST FLUME TENDER DIANDRA LACY M.D. Performed By: #### P T #### [address] Troponin I.cardiac [Mass/vol ume] in Serum or Plasma by High sensitivity methodOrdered By: Hiral Interiano on 08-11-2022 Troponin I.cardiac High sensitivity method [Mass/Vol] 42 pg/mL 0-20 [facility] URINE MICROSCOPIC ONLYon BACTERIA TRACE Abnormal NONE SEEN [facility] Comment on above: Performed By: #### T SH, LIPID, T4, FT3, CMP #### [facility] [address] [place] [address] Dr. Alicia Patel Bacteria identified Cx Nom (U) NOT INDICATED Normal [facility] Comment on above: Performed By: #### T SH, LIPID, T4, FT3, CMP #### [facility] [address] [address] [address] Alicia Patel CAST NONE SEEN Normal NONE SEEN [facility] Comment on above: Performed By: #### T SH, LIPID, T4, FT3, CMP #### [facility] [address] [address] [address] Alicia Patel Crystals LM Nom (Urine sed) NONE SEEN Normal NONE SEEN [facility] Comment on above: Performed By: #### T SH, LIPID, T4, FT3, CMP #### [facility] [address] [address] [address] Alicia Patel Epithelial cells LM Ql (Urine sed) RARE Normal NONE SEEN /RARE [facility] Comment on above: Performed By: #### T SH, LIPID, T4, FT3, CMP #### [facility] [address] [address] [address] Alicia Patel MUCOUS NONE SEEN Normal NONE SEEN [facility] Comment on above: Performed By: #### T SH, LIPID, T4, FT3, CMP #### [facility] [address] [place], [place] [address] Dr. Alicia Patel RBC 2-5 Abnormal 0-2 [facility] Comment on above: Performed By: #### T SH, LIPID, T4, FT3, CMP #### [facility] [address] [place], [place] [address] Dr. Alicia Patel WBC 2-5 Abnormal NONE SEEN [facility] Comment on above: Performed By: #### T SH, LIPID, T4, FT3, CMP #### [facility] [address] [place], [place] [address] Dr. Alicia Patel XR CHEST 1 Von [...] by: YOGESH BYERS Date: 2022-08-11 04:27 Normal [facility] XR chest 1V portableon 08-11 XR chest 1V portable [facility] Main [place] [address] [place] [address] XRay Report Signed Patient: Victorino Smyth MR#: [id number] : 1940 Acct:[id number] Age/Sex: 82 / M ADM Date: 08/11/22 Loc: Room: [address] [place] [address] Type: ADM IN Attending Dr: Hiral Interiano [...] Rehan Fuentes M.D.08/11/2022 4:10 PM Dictation Location: [place] [address] Transcribed By: [facility] 08/11/22 1610 Dictated By: Rehan Fuentes DO 08/11/22 1602 Signed By: 08/11/22 1610 Normal [facility] Covid-19 PCR (CVDTB)on SARS-CoV-2 (COVID-19) RNA SAVANNAH+probe Ql (Unsp spec) Not detected Normal NOT DETECTED [facility] Comment on above: Result Comment: This test is not yet approved or cleared by the [place] FDA. When there are no FDA-approved or cleared tests available, and other criteria are met, FDA can make tests available under an emergency access mechanism called an Emergency Use Authorization (EUA). The EUA for this test is supported by the Banks of Health and Human Service's (HHS's) declaration [...] T SH, LIPID, T4, FT3, CMP #### [facility] [address] [address] [address] Alicia Patel INFLUENZA A AND B AGon 08-02 INFLUANEGH SEE BELOW Normal [facility] Comment on above: Result Comment: Nega tive for Flu A protein angiten. Infection due to Flu A cannot be ruled out. Flu A angiten in the sample may be below the detection limit of the test. Performed By: #### T SH, LIPID, T4, FT3, CMP #### [facility] [address] [place] [address] Dr. Alicia Patel [facility] SEE BELOW Normal [facility] Comment on above: Result Comment: Nega tive for Flu B protein antigen. Infection due to Flu B cannot be ruled out. Flu B antigen in the sample may be below the detection limit of the test. Performed By: #### T SH, LIPID, T4, FT3, CMP #### [facility] [address] [place] [address] Dr. Alicia Patel INFLUENZA A AG Negative Normal NEGATIVE SEE COMMENT [facility] Comment on above: Performed By: #### T SH, LIPID, T4, FT3, CMP #### [facility] [address] [place] [address] Dr. Alicia Patel INFLUENZA B AG Negative Normal NEGATIVE SEE COMMENT [facility] Comment on above: Performed By: #### T SH, LIPID, T4, FT3, CMP #### [facility] [address] [place] [address] Dr. Alicia Patel PTH INTACTon 05-25-2022 PTH, Intact 47 pg/mL Normal 15-65 [facility] Comment on above: Performed By: #### T SH, LIPID, T4, FT3, CMP #### [facility] [address] [place] [address] Dr. Alicia Patel ALBUMINon 05-24-2022 Albumin [Mass/Vol] 3.9 g/dL Normal 3.4-5.0 [facility] Comment on above: Performed By: #### T SH, LIPID, T4, FT3, CMP #### [facility] [address] [place] [address] Dr. Alicia Patel HEMOGRAM AND PLATELon 2021 Hematocrit (Bld) [Volume fraction] 42.1 % Normal 42.0-54.0 [facility] Comment on above: Performed By: #### T SH, LIPID, T4, FT3, CMP #### [facility] [address] [place] [address] Dr. Alicia Patel Hemoglobin (Bld) [Mass/Vol] 14.7 g/dL Normal 14.0-18.0 [facility] Comment on above: Performed By: #### T SH, LIPID, T4, FT3, CMP #### [facility] [address] [place] [address] Dr. Alicia Patel MCH (RBC) [Entitic mass] 33.2 pg Normal 25.9-34.0 [facility] Comment on above: Performed By: #### T SH, LIPID, T4, FT3, CMP #### [facility] [address] [place] [address] Dr. Alicia Patel MCHC (RBC) [Mass/Vol] 34.9 g/dL Normal 29.9-35.2 [facility] Comment on above: Performed By: #### T SH, LIPID, T4, FT3, CMP #### [facility] [address] [place] [address] Dr. Alicia Patel MCV (RBC) [Entitic vol] 95.0 fL Critically high 80.0-94.0 [facility] Comment on above: Performed By: #### T SH, LIPID, T4, FT3, CMP #### [facility] [address] [place] [address] Dr. Alicia Patel PLT 190 103/ul Normal 150-450 [facility] Comment on above: Performed By: #### T SH, LIPID, T4, FT3, CMP #### [facility] [address] [place] [address] Dr. Alicia Patel RBC 4.43 106/ul Critically low 4.70-6.10 [facility] Comment on above: Performed By: #### T SH, LIPID, T4, FT3, CMP #### [facility] [address] [place] [address] Dr. Alicia Patel WBC 7.0 103/ul Normal 4.0-11.0 [facility] Comment on above: Performed By: #### T SH, LIPID, T4, FT3, CMP #### [facility] [address] [place] [address] Dr. Alicia Patel MAGNESIUMon 05-24-2022 Magnesium [Mass/Vol] 1.7 mg/dL Critically low 1.8-2.4 [facility] Comment on above: Performed By: #### T SH, LIPID, T4, FT3, CMP #### [facility] [address] [place] [address] Dr. Alicia Patel PHOSPHORUSon 05-24-2022 Phosphate [Mass/Vol] 3.7 mg/dL Normal 2.6-4.7 [facility] Comment on above: Performed By: #### T SH, LIPID, T4, FT3, CMP #### [facility] [address] [place] [address] Dr. Alicia Patel PROF CHEM 8 (BAS METB)on Anion gap [Moles/Vol] 11.2 mmol/L Normal [facility] Comment on above: Performed By: #### U RTPCR #### [facility] [address] [place] [address] Dr. Alicia Patel Calcium [Mass/Vol] 9.1 mg/dL Normal 8.5-10.1 [facility] Comment on above: Performed By: #### U RTPCR #### [facility] [address] [place] [address] Dr. Alicia Patel Chloride [Moles/Vol] 104 mmol/L Normal 98-107 [facility] Comment on above: Performed By: #### U RTPCR #### [facility] [address] [place] [address] Dr. Alicia Patel CO2 [Moles/Vol] 29.2 mmol/L Normal 21.0-32.0 [facility] Comment on above: Performed By: #### U RTPCR #### [facility] [address] [place] [address] Dr. Alicia Patel Creatinine [Mass/Vol] 1.40 mg/dL Critically high 0.70-1.30 [facility] Comment on above: Performed By: #### U RTPCR #### [facility] [address] [address] [address] Alicia Patel EGFR-AF BELARUSIAN 59 mL/min/1.73m2 Critically low >=60 [facility] Comment on above: Performed By: #### U RTPCR #### [facility] [address] [place] [address] [address] Alicia Patel EGFR-NON AF BELARUSIAN 49 mL/min/1.73m2 Critically low >=60 [facility] Comment on above: Performed By: #### U RTPCR #### [facility] [address] [address] [address] Alicia Patel Glucose [Mass/Vol] 148 mg/dL Critically high 74-106 [facility] Comment on above: Performed By: #### U RTPCR #### [facility] [address] [place] [address] Dr. Alicia Patel Potassium [Moles/Vol] 4.4 mmol/L Normal 3.5-5.1 [facility] Comment on above: Performed By: #### U RTPCR #### [facility] [address] [address] [address] Alicia Patel Sodium [Moles/Vol] 140 mmol/L Normal 136-145 [facility] Comment on above: Performed By: #### U RTPCR #### [facility] [address] [place] [address] Dr. Alicia Patel Urea nitrogen [Mass/Vol] 16.0 mg/dL Normal 7.0-18.0 [facility] Comment on above: Performed By: #### U RTPCR #### [facility] [address] [place] [address] Dr. Alicia Patel Urea nitrogen/Creatinine [Mass ratio] 11.4 mg/mg Normal [facility] Comment on above: Performed By: #### U RTPCR #### [facility] [address] [place] [address] Dr. Alicia Patel UA RANDOM W/MICROSCOPICon BACTERIA NONE SEEN Normal NONE SEEN [facility] Comment on above: Performed By: #### T SH, LIPID, T4, FT3, CMP #### [facility] [address] [address] [address] Alicia Patel Bilirubin Ql (U) Negative Normal NEGATIVE [facility] Comment on above: Performed By: #### T SH, LIPID, T4, FT3, CMP #### [facility] [address] [place] [address] [address] Alicia Patel CAST NONE SEEN Normal NONE SEEN [facility] Comment on above: Performed By: #### T SH, LIPID, T4, FT3, CMP #### [facility] [address] [address] [address] Alicia Patel Clarity (U) CLEAR Normal CLEAR [facility] Comment on above: Performed By: #### T SH, LIPID, T4, FT3, CMP #### [facility] [address] [place] [address] Dr. Alicia Patel Color (U) LT. YELLOW Normal YELLOW [facility] Comment on above: Performed By: #### T SH, LIPID, T4, FT3, CMP #### [facility] [address] [place] [address] Dr. Alicia Patel Crystals LM Nom (Urine sed) NONE SEEN Normal NONE SEEN [facility] Comment on above: Performed By: #### T SH, LIPID, T4, FT3, CMP #### [facility] [address] [place] [address] Dr. Alicia Patel Epithelial cells LM Ql (Urine sed) FEW Abnormal NONE SEEN /RARE [facility] Comment on above: Performed By: #### T SH, LIPID, T4, FT3, CMP #### [facility] [address] [place] [address] Dr. Alicia Patel Glucose Ql (U) Negative Normal NEGATIVE [facility] Comment on above: Performed By: #### T SH, LIPID, T4, FT3, CMP #### [facility] [address] [place] [address] Dr. Alicia Patel Hemoglobin Ql (U) Negative Normal NEGATIVE [facility] Comment on above: Performed By: #### T SH, LIPID, T4, FT3, CMP #### [facility] [address] [place] [address] Dr. Alicia Patel Ketones Ql (U) Negative Normal NEGATIVE [facility] Comment on above: Performed By: #### T SH, LIPID, T4, FT3, CMP #### [facility] [address] [place] [address] Dr. Alicia Patel LEUKOCYTES Negative Normal NEGATIVE [facility] Comment on above: Performed By: #### T SH, LIPID, T4, FT3, CMP #### [facility] [address] [place] [address] Dr. Alicia Patel MUCOUS NONE SEEN Normal NONE SEEN [facility] Comment on above: Performed By: #### T SH, LIPID, T4, FT3, CMP #### [facility] [address] [place] [address] Dr. Alicia Patel Nitrite Ql (U) Negative Normal NEGATIVE [facility] Comment on above: Performed By: #### T SH, LIPID, T4, FT3, CMP #### [facility] [address] [place] [address] Dr. Alicia Patel pH (U) 5.5 [pH] Normal 5-9 [facility] Comment on above: Performed By: #### T SH, LIPID, T4, FT3, CMP #### [facility] [address] [place] [address] Dr. Alicia Patel RBC NONE SEEN Abnormal 0-2 [facility] Comment on above: Performed By: #### T SH, LIPID, T4, FT3, CMP #### [facility] [address] [place] [address] Dr. Alicia Patel SPEC GRAVITY 1.020 Normal 1.005-<=1. 025 [facility] Comment on above: Performed By: #### T SH, LIPID, T4, FT3, CMP #### [facility] [address] [place] [address] Dr. Alicia Patel UA PROTEIN Negative Normal NEGATIVE/ TRACE [facility] Comment on above: Performed By: #### T SH, LIPID, T4, FT3, CMP #### [facility] [address] [place] [address] Dr. Alicia Patel Urobilinogen Qn (U) 0.2 {Wil'U}/dL Normal 0.2 - 1. 0 [facility] Comment on above: Performed By: #### T SH, LIPID, T4, FT3, CMP #### [facility] [address] [address] [address] Alicia Paetl WBC NONE SEEN Normal NONE SEEN [facility] Comment on above: Performed By: #### T SH, LIPID, T4, FT3, CMP #### [facility] [address] [place] [address] Dr. Alicia Patel URIC ACID SERUMon 05-24-2022 Urate [Mass/Vol] 5.6 mg/dL Normal 3.5-7.2 [facility] Comment on above: Performed By: #### T SH, LIPID, T4, FT3, CMP #### [facility] [address] [place] [address] Dr. Alicia Patel URINE T PROTEIN CREAT RATIOo n 05-24-2022 Protein (U) [Mass/Vol] 26.0 mg/dL Critically high <=12.0 [facility] Comment on above: Performed By: #### T SH, LIPID, T4, FT3, CMP #### [facility] [address] [address] [address] Alicia Patel UR PROT CREAT RAT 0.34 Normal [facility] Comment on above: Performed By: #### T SH, LIPID, T4, FT3, CMP #### [facility] [address] [address] [address] Alicia Patel URINE CREAT 77.39 mg/dL Normal 20.00-300. 00 [facility] Comment on above: Performed By: #### T SH, LIPID, T4, FT3, CMP #### [facility] [address] [place] [address] Dr. Alicia Patel Vital Signs Date Time Vital Sign Value Performing Clinician Facility 06-14-2023 11:00-0500 Body height 175.26 cm Alicia Brit Other [facility] Other 06-14-2023 11:00-0500 Body mass index (BMI) [Ratio] 38.51 kg/m2 Alicia Brit Other [facility] Other 06-14-2023 11:00-0500 Body temperature 97.2 [degF] Alicia Brit Other [facility] Other 06-14-2023 11:00-0500 Body weight 118.3 kg Alicia Brit Other [facility] Other 06-14-2023 11:00-0500 Diastolic blood pressure 72 mm[Hg] Alicia Brit Other [facility] Other 06-14-2023 11:00-0500 Respiratory rate 18 /min Alicia Brit Other [facility] Other 06-14-2023 11:00-0500 SaO2% (BldA) [Mass fraction] 95 % Alicia Brit Other [facility] Other 06-14-2023 11:00-0500 Systolic blood pressure 122 mm[Hg] Alicia Brit Other [facility] Other 11-29-2022 10:20-0400 Body height 175.26 cm Alicia Brit Other [facility] Other 11-29-2022 10:20-0400 Body mass index (BMI) [Ratio] 36.77 kg/m2 Alicia Brit Other [facility] Other 11-29-2022 10:20-0400 Body temperature 96.3 [degF] Alicia Brit Other [facility] Other 11-29-2022 10:20-0400 Body weight 112.95 kg Alicia Brit Other [facility] Other 11-29-2022 10:20-0400 Diastolic blood pressure 72 mm[Hg] Alicia Brit Other [facility] Other 11-29-2022 10:20-0400 Respiratory rate 18 /min Alicia Brit Other [facility] Other 11-29-2022 10:20-0400 SaO2% (BldA) [Mass fraction] 96 % Alicia Brit Other [facility] Other 11-29-2022 10:20-0400 Systolic blood pressure 137 mm[Hg] Alicia Brit Other [facility] Other 10-07-2022 17:25-0400 Heart rate 66 /min Ni OLIVAR[facility] 10-07-2022 17:25-0400 SaO2% (BldA) [Mass fraction] 92 % Ni [facility]AR[facility] 10-07-2022 17:25-0400 Respiratory rate 16 /min iN [facility] 10-07-2022 17:24-0400 Body temperature 97.7 [degF] Ni [facility] 10-07-2022 17:24-0400 Diastolic blood pressure 74 mm[Hg] Ni [facility]AR[facility] 10-07-2022 17:24-0400 Mean blood pressure 106 mm[Hg] Ni COOK [facility] 10-07-2022 17:24-0400 Systolic blood pressure 170 mm[Hg] Ni C[facility] 10-07-2022 16:18-0400 Heart rate 61 /min Ni COOK [facility] 10-07-2022 16:18-0400 SaO2% (BldA) [Mass fraction] 95 % Ni COOK [facility] 10-07-2022 16:17-0400 Diastolic blood pressure 81 mm[Hg] Ni COOK [facility] 10-07-2022 16:17-0400 Mean blood pressure 103 mm[Hg] Ni COOK [facility] 10-07-2022 16:17-0400 Systolic blood pressure 148 mm[Hg] Ni COOK [facility] 10-07-2022 16:17-0400 Respiratory rate 16 /min Ni COOK [facility] 10-07-2022 16:11-0400 Diastolic blood pressure 75 mm[Hg] Ni COOK [facility] 10-07-2022 16:11-0400 Heart rate 58 /min Ni COOK [facility] 10-07-2022 16:11-0400 Mean blood pressure 98 mm[Hg] Ni COOK [facility] 10-07-2022 16:11-0400 Respiratory rate 17 /min Ni COOK [facility] 10-07-2022 16:11-0400 SaO2% (BldA) [Mass fraction] 97 % Ni COOK [facility] 10-07-2022 16:11-0400 Systolic blood pressure 144 mm[Hg] Ni [facility]AR[facility] 10-07-2022 16:00-0400 Mean blood pressure 92 mm[Hg] Ni COOK [facility] 10-07-2022 16:00-0400 Respiratory rate 13 /min Ni COOK [facility] 10-07-2022 15:55-0400 Mean blood pressure 86 mm[Hg] Ni [facility] 10-07-2022 15:55-0400 Respiratory rate 17 /min Ni COOK [facility] 10-07-2022 15:46-0400 Body temperature 98.06 [degF] Ni COOK [facility] 10-07-2022 15:40-0400 Respiratory rate 15 /min Ni [facility] 10-07-2022 10:14-0400 Mean blood pressure 97 mm[Hg] Ni [facility]AR[facility] 10-07-2022 10:14-0400 Blood Pressure Location Ni COOK [facility] 10-07-2022 10:13-0400 Heart rate 64 /min Ni [facility] 10-07-2022 10:12-0400 Body temperature 98.06 [degF] Ni [facility] 10-07-2022 10:12-0400 Blood Pressure Location Ni COOK [facility] 09-15-2022 14:40-0400 Body height 175.26 cm Alicia Brit Other [facility] Other 09-15-2022 14:40-0400 Body mass index (BMI) [Ratio] 37.48 kg/m2 Alicia Brit Other [facility] Other 09-15-2022 14:40-0400 Body weight 115.12 kg Alicia Brit Other [facility] Other 09-15-2022 14:40-0400 Diastolic blood pressure 73 mm[Hg] Alicia Brit Other [facility] Other 09-15-2022 14:40-0400 Respiratory rate 18 /min Alicia Brit Other [facility] Other 09-15-2022 14:40-0400 SaO2% (BldA) [Mass fraction] 97 % Alicia Brit Other [facility] Other 09-15-2022 14:40-0400 Systolic blood pressure 138 mm[Hg] Alicia Brit Other [facility] Other 09-06-2022 10:01-0400 Blood Pressure Location Ni OLIVARES [facility] 09-06-2022 10:01-0400 Diastolic blood pressure 70 mm[Hg] Ni OL[facility]AR[facility] 09-06-2022 10:01-0400 Heart rate 68 /min Ni OLIVAR[facility] 09-06-2022 10:01-0400 Systolic blood pressure 132 mm[Hg] Ni [facility]AR[facility] 08-15-2022 12:16-0500 Body temperature 97.8 [degF] MD Tray Alfaro Work Phone: [facility] 08-15-2022 12:16-0500 Diastolic blood pressure 92 mm[Hg] MD Tray Alfaro Work Phone: [facility] 08-15-2022 12:16-0500 Heart rate 68 /min MD Tray Alfaro Work Phone: [facility] 08-15-2022 12:16-0500 Respiratory rate 18 /min MD Tray Alfaro Work Phone: [facility] 08-15-2022 12:16-0500 SaO2% (BldA) [Mass fraction] 95 % MD Tray Alfaro Work Phone: [facility] 08-15-2022 12:16-0500 Systolic blood pressure 146 mm[Hg] MD Tray Alfaro Work Phone: [facility] 08-15-2022 05:08-0500 Body weight 118.2 kg MD Tray Alfaro Work Phone: [facility] 08-13-2022 13:10-0500 Inhaled oxygen flow rate 8 L/min MD Tray Alfaro Work Phone: [facility] 08-13-2022 11:54-0500 Body height 177.8 cm MD Tray Alfaro Work Phone: [facility] 08-13-2022 11:54-0500 Body mass index (BMI) [Ratio] 37.3 kg/m2 MD Tray Alfaro Work Phone: [facility] 06-01-2022 11:40-0500 Body height 175.26 cm Alicia Brit Other [facility] Other 06-01-2022 11:40-0500 Body mass index (BMI) [Ratio] 37.77 kg/m2 Alicia Brit Other [facility] Other 06-01-2022 11:40-0500 Body temperature 97.5 [degF] Alicia Brit Other [facility] Other 06-01-2022 11:40-0500 Body weight 116.03 kg Alicia Brit Other [facility] Other 06-01-2022 11:40-0500 Diastolic blood pressure 71 mm[Hg] Alicia Brit Other [facility] Other 06-01-2022 11:40-0500 Respiratory rate 18 /min Alicia Brit Other [facility] Other 06-01-2022 11:40-0500 SaO2% (BldA) [Mass fraction] 93 % Alicia Brit Other [facility] Other 06-01-2022 11:40-0500 Systolic blood pressure 134 mm[Hg] Alicia Brit Other [facility] Other 11-24-2021 11:20-0400 Body height 175.26 cm Alicia Brit Other [facility] Other 11-24-2021 11:20-0400 Body mass index (BMI) [Ratio] 36.26 kg/m2 Alicia Brit Other [facility] Other 11-24-2021 11:20-0400 Body temperature 96.4 [degF] Alicia Brit Other [facility] Other 11-24-2021 11:20-0400 Body weight 111.4 kg Alicia Brit Other [facility] Other 11-24-2021 11:20-0400 Diastolic blood pressure 72 mm[Hg] Alicia Brit Other [facility] Other 11-24-2021 11:20-0400 Respiratory rate 18 /min Alicia Brit Other [facility] Other 11-24-2021 11:20-0400 SaO2% (BldA) [Mass fraction] 95 % Alicia Brit Other [facility] Other 11-24-2021 11:20-0400 Systolic blood pressure 139 mm[Hg] Alicia Brit Other [facility] Other 10-26-2021 09:17-0400 Blood Pressure Location Milton BizGreet [facility] 10-26-2021 09:17-0400 Diastolic blood pressure 69 mm[Hg] Milton BRAUN [facility] 10-26-2021 09:17-0400 Heart rate 64 /min Milton BRAUN [facility] 10-26-2021 09:17-0400 Respiratory rate 16 /min Milton BRAUN [facility] 10-26-2021 09:17-0400 Systolic blood pressure 139 mm[Hg] Milton BRAUN [facility] 05-26-2021 11:00-0500 Body height 175.26 cm Alicia Brit Other [facility] Other 05-26-2021 11:00-0500 Body mass index (BMI) [Ratio] 34.4 kg/m2 Alicia Brit Other [facility] Other 05-26-2021 11:00-0500 Body temperature 96.9 [degF] Alicia Brit Other [facility] Other 05-26-2021 11:00-0500 Body weight 105.69 kg Alicia Brit Other [facility] Other 05-26-2021 11:00-0500 Diastolic blood pressure 80 mm[Hg] Alicia Brit Other [facility] Other 05-26-2021 11:00-0500 Respiratory rate 18 /min Alicia Brit Other [facility] Other 05-26-2021 11:00-0500 SaO2% (BldA) [Mass fraction] 94 % Alicia Brit Other [facility] Other 05-26-2021 11:00-0500 Systolic blood pressure 136 mm[Hg] Alicia Brit Other [facility] Other Encounters Encounter Date Encounter Type Care Provider Facility Start: 06-12-2024 ambulatory Ni OLIVARES Facility :[facility] Start: 09-12-2023 End: 09-12-2023 ambulatory GABRIEL DRISCOLL Not Available Start: 08-23-2023 End: 08-23-2023 ambulatory ISRA [facility] Start: 07-02-2023 End: 07-02-2023 ambulatory Tray Alfaro Facility:[facility] Start: 07-02-2023 End: 07-02-2023 ambulatory MD Tray Alfaro Work Phone: [facility] Work Phone: Start: 07-02-2023 End: 07-02-2023 Patient encounter procedure MD Tray Alfaro Work Phone: [facility] [place] Work Phone: Start: 06-28-2023 End: 06-28-2023 ambulatory Tray Alfaro Facility:[facility] Start: 06-28-2023 End: 06-28-2023 ambulatory MD Tray Alfaro Work Phone: [facility] Work Phone: Start: 06-28-2023 End: 06-28-2023 Patient encounter procedure MD Tray Alfaro Work Phone: [facility] [place] Work Phone: Start: 06-16-2023 End: 06-16-2023 ambulatory Ni Olivares Facility:[facility] Start: 06-16-2023 End: 06-16-2023 ambulatory MD Tray Alfaro Work Phone: [facility] Work Phone: Start: 06-16-2023 End: 06-16-2023 Patient encounter procedure MD Tray Alfaro Work Phone: [facility] [place] Work Phone: Start: 06-14-2023 Office outpatient vi sit 25 minutes [facility] Start: 06-14-2023 End: 06-15-2023 ambulatory Ni OLIVARES [place] [email or web address] Other Start: 06-14-2023 End: 06-14-2023 Patient encounter procedure Ni OLIVARES [facility] Start: 01-26-2023 End: 01-26-2023 [facility] Start: 12-20-2022 End: 12-21-2022 ambulatory Ni OLIVARES Facility:[facility] Start: 12-20-2022 End: 12-20-2022 Patient encounter procedure Ni OLIVARES [facility] Start: 12-02-2022 End: 12-02-2022 ambulatory Ni OLIVARES Facility:[facility] Start: 11-29-2022 End: 11-29-2022 ambulatory Alicia Perea Other [facility] Other Start: 11-29-2022 Office outpatient vi sit 25 minutes [facility] Start: 11-18-2022 End: 11-19-2022 ambulatory MD ALICIA PEREA Facility:[facility] Start: 11-18-2022 End: 11-19-2022 ambulatory Ni OLIVARES Facility:[facility] Start: 11-17-2022 End: 11-17-2022 ambulatory [facility] Start: 11-17-2022 End: 11-17-2022 Encounter for preprocedural cardiovascular examination [facility] Start: 11-10-2022 End: 11-24-[address] TRAY ALFARO . Facility: Start: 11-08-2022 End: 11-08-[address] TRAY ALFARO . Facility: Start: 11-06-2022 End: 11-07-[address] TRAY ALFARO . Facility: Start: 10-29-2022 End: 10-30-2022 ambulatory Milton BRAUN Facility:[facility] Start: 10-29-2022 End: 10-29-2022 Patient encounter procedure Milton BRAUN [facility] Start: 10-26-2022 End: 10-27-2022 ambulatory IRIS CORONEL Facility:[facility] Start: 10-22-2022 End: 10-23-[address] MILTON BRAUN . Facility:[facility] Start: 10-15-2022 End: 10-16-[address] TRAY ALFARO . Facility:[facility] Start: 10-14-2022 End: 10-15-2022 ambulatory IRIS CORONEL Facility:[facility] Start: 10-14-2022 End: 10-14-[address] [facility] Start: 10-07-2022 End: 10-07-2022 ambulatory Ni OLIVARES Facility:[facility] Start: 10-07-2022 End: 10-07-2022 Admission to same day surgery center Ni OLIVARES [facility] Start: 09-15-2022 End: 09-15-2022 ambulatory Alicia Brit Other [facility] Other Start: 09-15-2022 Office outpatient vi sit 25 minutes Alicia Brit [facility] Start: 09-14-2022 End: 09-15-2022 ambulatory Ni OLIVARES Facility:[id number] Start: 09-13-2022 End: 09-14-2022 ambulatory ALICIA BRIT Facility: Start: 09-06-2022 End: 09-07-2022 ambulatory Ni OLIVARES Facility: [place] Start: 09-06-2022 End: 09-06-2022 Patient encounter procedure Ni OLIVARES [facility] Start: 09-01-2022 End: 09-02-[address] NI OLIVARES Facility:[facility] Start: 08-31-2022 End: 08-31-2022 ambulatory Tray Alfaro Facility:[facility] Start: 08-24-2022 End: 08-25-[address] TRAY ALFARO . Facility:[facility] Start: 08-22-2022 End: 08-22-[address] TRAY ALFARO . Facility:[facility] Start: 08-21-2022 End: 08-22-[address] TRAY ALFARO . Facility:[facility] Start: 08-18-2022 End: 08-19-2022 ambulatory ALICIA BRIT Facility:[facility] Start: 08-16-2022 ambulatory Ni OLIVARES Facility:[facility] [place] Start: 08-11-2022 ambulatory Facility:[facility] Start: 08-11-2022 Patient encounter status MD Iglesias Work Phone: [facility] Start: 08-11-2022 Encounter for preprocedural cardiovascular examination Hiral Interiano [facility] Start: 08-11-2022 End: 08-15-2022 Evaluation and management of inpatient Hiral Interiano Facility:[facility] Start: 08-11-2022 End: 08-15-2022 Encounter for preprocedural cardiovascular examination MD Tray Alfaro Work Phone: [facility] Start: 08-11-2022 End: 08-15-2022 Evaluation and management of inpatient MD Tray Alfaro Work Phone: [facility] [place] [facility] Work Phone: Start: 08-11-2022 End: 08-14-2022 ambulatory THADDEUS DAUGHERTY Facility:[facility] Start: 08-02-2022 End: 08-02-[address] TRAY ALFARO . Facility:[facility] Start: 07-08-2022 End: 07-23-[address] TRAY ALFARO . Facility:[facility] Start: 06-01-2022 End: 06-01-2022 ambulatory Alicia Brit Other [place] [email or web address] Other Start: 06-01-2022 Office outpatient vi sit 25 minutes Alicia Brit [facility] Start: 05-24-2022 End: 05-25-2022 ambulatory ALICIA BRIT Facility:[facility] Start: 02-03-2022 End: 02-04-[address] TRAY ALFARO . Facility:[facility] Start: 11-24-2021 End: 11-24-2021 ambulatory Alicia Brit Other [facility] Other Start: 11-24-2021 Office outpatient vi sit 25 minutes Alicia Brit [facility] Start: 10-26-2021 End: 10-26-2021 Patient encounter procedure Milton BRAUN [facility] Start: 05-26-2021 End: 05-26-2021 ambulatory Alicia Brit Other [facility] Other Start: 05-26-2021 Office outpatient vi sit 25 minutes Alicia Brit [facility] Procedures Date Procedure Procedure Detail Performing Clinician Start: 06-16-2023 Ultrasonography of b ilateral kidneys MD Tray Alfaro Work Phone: Start: 12-20-2022 Cystoscopic removal of ureteric stent Ni MARSHALL Start: 12-02-2022 Cystoscopy Ni BULL Start: 11-06-2022 PSA screening ALICIA QAD IR Comment on above: Performed By: #### T SH, LIPID, T4, FT3, CMP #### [facility] [address] [place] [address] Dr. Alicia Patel Start: 10-07-2022 Extracorporeal shock wave lithotripsy of calculus of kidney Ni OLIVARES Start: 08-21-2022 PSA screening ALICIA QAD IR Comment on above: Performed By: #### P SAD #### [facility] [address] [place] [address] Dr. Alicia Patel Start: 08-13-2022 Cystoscopy MD Tray Alfaro Work Phone: Start: 08-11-2022 Plain chest X-ray MD Iglesias Work Phone: Start: 08-01-2019 Transurethral prostatectomy Milton BRAUN Start: 07-04-2019 Biopsy of prostate Romar humaira BRAUN Start: 06-27-2019 cystoscopy, bilatera l, ureteroscopy, laser lithotripsy Milton BRAUN ear surgery Milton BRAUN ear surgery Ni OLIVARES Plan of Treatment Date Care Activity Detail Author Start: 08-15-2022 [facility] Start: 08-14-2022 Microbial culture of sputum [facility] Start: 08-14-2022 Aerobic Culture Aerobic Culture [facility] Start: 08-14-2022 Investigation of tra nsfusion reaction Gram Stain [facility] Start: 08-11-2022 Hospital admission [facility] Start: 08-11-2022 Referral to director zone [facility] Start: 08-11-2022 Referral to clinical case manager [facility] Start: 08-11-2022 Referral to urologist [facility] CT Chest WO contrast [facility] Patient referral [facility] Work Phone: Renal function 2000 panel - Serum or Plasma [facility] Immunizations Immunization Date Immunization Notes Care Provider Bobby victor 05-02-2023 pneumococcal 20-marco nt conjugate vaccine Ni MARSHALL [facility] 05-02-2023 tetanus toxoid, redu martha diphtheria toxoid, and acellular pertussis vaccine, adsorbed Ni OLIVARES [facility] 03-29-2022 SARS-CoV-2 (COVID-19 ) [id number] Ni MARSHALL [facility] 05-18-2021 SARS-CoV-2 (COVID-19 ) Ad26 vaccine, recombinant Ni OLIVARES [facility] 03-30-2021 influenza virus vaccine, unspecified formulation Ni OLIVARES [facility] 09-01-2020 SARS-CoV-2 (COVID-19 ) Ad26 vaccine, recombinant Ni OLIVARES [facility] 06-27-2020 SARS-CoV-2 (COVID-19 ) Ad26 vaccine, recombinant Milton [facility] 04-18-2020 influenza virus vaccine, unspecified formulation Ni OLIVARES [facility] 02-05-2020 zoster vaccine recombinant Ni Tilt [facility] 12-06-2019 zoster vaccine recombinant Ni Tilt [facility] 04-04-2019 influenza virus vaccine, unspecified formulation Milton [facility] 04-05-2017 influenza virus vaccine, unspecified formulation Ni OLIVARES [facility] 04-05-2017 pneumococcal conjuga te vaccine, 13 valent Ni OLIVARES [facility] 04-12-2016 influenza, unspecifi ed formulation Ni Tilt [facility] Payers Date Payer Category Payer Medicare [id number] 2022 Self-pay [id number] 1959 Private Health Insurance [id number] 2.16.840.1.690976.19 1959 Private Health Insurance [id number] 1942 Unknown [id number] 2.16.840.1.222292.3.579.2.356 1942 Unknown [id number] 2.16.840.1.053078.3.579.2.593 1942 Unknown [id number] 2.16.840.1.102966.3.579.2.593 1942 Unknown [id number] 2.16.840.1.692332.3.579.2.593 1942 Unknown [id number] 2.16.840.1.736700.3.579.2.593 1942 Unknown [id number] 2.16.840.1.244122.3.579.2.593 1942 Unknown [id number] 2.16.840.1.204609.3.579.2.593 1942 Unknown [id number] 2.16.840.1.080500.3.579.2.593 1942 Unknown [id number] 2.16.840.1.842716.3.579.2.593 1942 Unknown [id number] 2.16.840.1.434595.3.579.2.593 1942 Unknown [id number] 2.16.840.1.516009.3.579.2.593 1942 Unknown [id number] 2.16.840.1.859022.3.579.2.593 1942 Unknown [id number] 2.16.840.1.252427.3.579.2.593 1942 Unknown [id number] 2.16.840.1.176852.3.579.2.593 1942 Unknown [id number] 2.16.840.1.294818.3.579.2.593 1942 Unknown [id number] 2.16.840.1.829906.3.579.2.593 1942 Unknown [id number] 2.16.840.1.698922.3.579.2.593 1942 Unknown [id number] 2.16.840.1.173083.3.579.2.593 1942 Unknown [id number] 2.16.840.1.816532.3.579.2.593 1942 Unknown [id number] 2.16.840.1.151240.3.579.2.593 1942 Unknown [id number] 2.16.840.1.339824.3.579.2.727 1942 Unknown [id number] 2.16.840.1.506215.3.579.2.727 1942 Unknown [id number] 2.16.840.1.512064.3.579.2.727 1942 Unknown [id number] 2.16.840.1.593646.3.579.2.727 1942 Unknown [id number] 2.16.840.1.202980.3.579.2.727 1942 Unknown [id number] 2.16.840.1.288696.3.579.2.727 1942 Unknown [id number] 2.16.840.1.081539.3.579.2.727 1942 Unknown [id number] 2.16.840.1.863121.3.579.2.727 1942 Unknown [id number] 2.16.840.1.730761.3.579.2.727 1942 Unknown [id number] 2.16.840.1.990126.3.579.2.727 1942 Unknown [id number] 2.16.840.1.874588.3.579.2.727 1942 Unknown [id number] 2.16.840.1.239283.3.579.2.1259 Medicare [id number] 2.16.8 40.1.133095.19 Medicare [id number] 2.1 6.840.1.249513.19 Unknown Hussein BC/BS [id number] Unknown [id number] 2.16.840.1.580941.3.579.2.531 Unknown [id number] 2.16.840.1.439055.3.579.2.531 Unknown [id number] 2.16.840.1.345668.3.579.2.531 Unknown [id number] 2.16.840.1.920746.3.579.2.531 Unknown [id number] 2.16.840.1.450526.3.579.2.531 Social History Date Type Detail Facility Start: 08-18-2020 End: 08-13-2022 Tobacco smoking status Ex-smoker (finding) [facility] Other Comment on above: quit in 1978 Sex Assigned At Male [facility] Other Start: 1940 Sex Assigned At Male [facility] Tobacco smoking status Never [facility] Comment on above: quit in 1978 Medical Equipment Procedure Code Equipment Code Equipment Origin al Text Equipment Identifier Dates Cystoscopy, with ureteral calculus manipulation and stent placement Polymeric ureteral stent ()[id number] [facility] Start: 06-15-2019 Cystoscopy, with ureteral calculus manipulation and stent placement Polymeric ureteral stent ()[id number] FDA Start: 06-15-2019 Cystoscopy, with ureteral calculus manipulation and stent placement Polymeric ureteral stent ()[id number] FDA Start: 08-13-2022 Biopsy, prostate, with US guidance Polymeric ureteral stent ()[id number] FDA Start: 07-04-2019 CYSTOSCOPY URETEROSCOPY Ni OLIVARES MD 12/02/22 Unknown Ureter R {[id number] {[id number] FDA Start: 12-02-2022 Goals Date Patient Goal Desired Activity /State Functional Status Date Assessment Result Facility 12-20-2022 Functional Status N/A [facility] 09-06-2022 Functional Status N/A [facility] 08-15-2022 Functional status Patient at Baseline [facility] Work Phone: Mental Status Date Assessment Result Facility 08-15-2022 Cognitive function Cognitive Sta tus Patient at Baseline [facility] Work Phone: Clinical Notes 05-26-2021 to 08-23-2023 Note Date & Type Note Facility 08-23-2023 Note [facility] SUBJECTIVE No chief complaint on file. Victorino Smyth is a 83 y.o. male here for follow-up. Patient here for 6 mo follow up CAD, hypertension, and hyperlipidemia. He was discharged from [facility] a few weeks ago for Covid-19. Feels much better and is still regaining his strength. Denies chest pain, palpitations, and lightheadedness/syncope. HPI PMHx: CAD, HLD, HTN -CAD and drug eluting stenting of LAD in March of 2013, and then developed acute TX related to ISR of the LAD stent on 09/28/2016 and underwent emergent Promus JOSE RAMON stent to the LAD at [facility], was on Brilinta but currently on aspirin only. At that time he had mild RCA and Circumflex disease. 08/23/2023 Back in June he was found to have appendicitis. They did not remove it during his hospital stay due to it being too inflammed. He was also admitted with COVID for a few days after his admission for appendicitis. He c/o feeling fatigue since having COVID. His BP is low today. His BP has been running on the lower side at home too. He has had some looser stools for the past few days. He admits to not drinking as much fluids as he should. He will be having a CT scan of his abdomen next week 08/29/[address] Alfaro and Dr. Driscoll will review the images and decide if they remove his appendix. He denies any cardiac complaints including chest pain, worsening dyspnea, orthopnea, PND, LE edema, dizziness/LH, syncope. Patient Active Problem List Diagnosis Benign prostatic hyperplasia Chest pain Coronary atherosclerosis Essential hypertension Hyperlipidemia 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CMS/HCC) Type 2 diabetes mellitus without complication (CMS/HCC) Pre-operative cardiovascular examination Past Medical History: Diagnosis Date Abnormal ECG Chronic kidney disease Coronary artery disease Diabetes mellitus (CMS/HCC) Hyperlipidemia Hypertension Myocardial infarction (CMS/HCC) Family History Problem Relation Name Age of Onset No Known Problems Mother No Known Problems Father Social History Tobacco Use Smoking status: Never Smokeless tobacco: Never Substance Use Topics Alcohol use: Yes Comment: socially Allergies Allergen Reactions Ciprofloxacin Itching Penicillins Other ROS Cardiovascular: Positive for dyspnea on exertion. Musculoskeletal: Positive for arthritis, back pain and joint pain. All other systems reviewed and are negative. OBJECTIVE Visit Vitals BP 78/50 (BP Location: Right arm, Patient Position: Sitting) Pulse 75 Ht 1.753 m (5' 9 ) Wt 110 kg (242 lb) SpO2 93% BMI 35.74 kg/m??? Smoking Status Never BSA 2.31 m??? Medications: Current Outpatient Medications: albuterol 90 mcg/actuation inhaler, Ventolin HFA 90 mcg/actuation aerosol inhaler inhale 2 puffs by mouth and INTO THE LUNGS every 4 hours if needed for shortness of breath, Disp: , Rfl: aspirin 81 mg EC tablet, in the morning., Disp: , Rfl: atorvastatin (Lipitor) 80 mg tablet, Take 1 tablet (80 mg) by mouth at bedtime., Disp: 90 tablet, Rfl: 3 calcium citrate-vitamin D3 (Citracal+D) 315 mg-5 mcg (200 unit) tablet, Take 1 tablet by mouth in the morning., Disp: , Rfl: glimepiride (Amaryl) 4 mg tablet, Take 2 mg by mouth before breakfast., Disp: , Rfl: isosorbide mononitrate ER (Imdur) 60 mg 24 hr tablet, TAKE 2 TABLETS BY MOUTH IN THE MORNING DO NOT CRUSH OR CHEW, Disp: 180 tablet, Rfl: 3 levothyroxine (Synthroid, Levoxyl) 50 mcg tablet, levothyroxine 50 mcg tablet take 1 tablet by mouth once daily, Disp: , Rfl: liothyronine (Cytomel) 5 mcg tablet, Take 5 mcg by mouth in the morning., Disp: , Rfl: lisinopril 20 mg tablet, TAKE 1 TABLET BY MOUTH DAILY, Disp: 90 tablet, Rfl: 3 magnesium oxide (Mag-Ox) 400 mg tablet, 400 mg in the morning., Disp: , Rfl: metoprolol tartrate (Lopressor) 50 mg tablet, TAKE 1 TABLET TWICE A DAY, Disp: 180 tablet, Rfl: 3 nitroglycerin (Nitrostat) 0.4 mg SL tablet, DISSOLVE 1 TABLET UNDER THE TONGUE EVERY 5 MINUTES NEEDED FOR CHEST PAIN. MAX OF 3 TABLETS IN 15 MINUTES. CALL 911 IF PAIN PERSISTS., Disp: 100 tablet, Rfl: 3 pioglitazone (Actos) 15 mg tablet, Take 15 mg by mouth in the morning., Disp: , Rfl: ranolazine (Ranexa) 500 mg 12 hr tablet, TAKE 1 TABLET BY MOUTH IN THE MORNING AND AT BEDTIME DO NOT CRUSH, CHEW, OR SPLIT, Disp: 180 tablet, Rfl: 3 SITagliptin phosphate (Januvia) 100 mg tablet, Januvia 100 mg tablet, Disp: , Rfl: tiotropium (Spiriva Respimat) 2.5 mcg/actuation inhaler, Spiriva Respimat 2.5 mcg/actuation solution for inhalation, Disp: , Rfl: Physical Exam Constitutional: Appearance: Normal appearance. He is obese. HENT: Head: Normocephalic and atraumatic. Right Ear: External ear normal. Left Ear: External ear normal. Eyes: Extraocular Movements: Extraocular movements intact. Pupils: Pupils are equal, round, and reactive to light. Neck: Vascular: No carotid bruit. Cardiovascular: Rate an (more content not included)... [facility] 08-23-2023 Note Patient here for 6 m o follow up CAD, hypertension, and hyperlipidemia. He was discharged from [facility] a few weeks ago for Covid-19. Feels much better and is still regaining his strength. Denies chest pain, palpitations, and lightheadedness/syncope. Patient states his BP in the mornings before medications has been running around 100/55. Review of Systems Cardiovascular: Positive for dyspnea on exertion. Musculoskeletal: Positive for arthritis, back pain and joint pain. All other systems reviewed and are negative. [facility] 06-14-2023 Evaluation note Encounter Date Diagnosis Assessment Notes May, Diabetes mellitus with chronic kidney disease (ICD-10 - E11.22) He has cwt-vxvvngn-x ependent type 2 diabetes and currently takes [...] and has normal B12 and folate level. [facility] Other 12-19-2023 Hospital Discharge instructions Patient Education [...] include: ?8 oz (237 mL) of milk, uzzlpwz-qzxmhpxobdvi-rykxj milk, and calcium- fortifiedfruit juice. Calcium-fortified means [...] ?Spinach (cooked), rhubarb, beets, sweet potatoes, and [place] Citizen chard. ?Peanuts. ?Potato chips, slovenian fries, and baked potatoes with skin on. ?Nuts and nut products. ?Chocolate. If you regularly take a diuretic medicine, make sure to eat at least 1 or 2 servings of fruits or vegetables that are high in potassium each day. These include: ?Avocado. ?Banana. ?[place], prune, carrot, or tomato juice. ?Baked potato. [...] magnesium, fish oil, or vitamin B6. Take qqgg-ija-ciapplx and prescription medicines only as told by [...] Casseroles. Pizza. Lasagna. Frozen meals. Potato chips. [place] fries. The items listed above may not [...] provider. Document Revised: 09/23/2022 Document Reviewed: 09/23/2022 [employer] Patient Education 2022 [employer]. Follow Up Care 02/04/2023 14:47:08 With:MARSHALL OLIVEROS, Ni Garcia, URL Address: [facility] [place] [id number]- When: Unknown [facility] [place] 08-02-2023 NoteUT Cardiology - [facility] Theresa Victorino Smyth is a 82 y.o. year [...] March of 2013, and then developed acute TX related to ISR of the LAD stent on 09/28/2016 and underwent emergent Promus JOSE RAMON stent to the LAD at [facility], was on Brilinta but currently on aspirin [...] Disp: , Rfl: liothyronine (more content not included)...[facility] 12-21-2022 [id number]:127[facility]06-26-2023 NoteCystoscopy with Stent Removal ? Voiding [...] if you have a fever over 100 degrees.[facility] [facility] 12-20-2022 Hospital Discharge instructions Patient Education [...] degrees. Follow Up Care 12/07/2022 13:42:13 With:Ni OLIVARES Address: [address] [facility] (1) When:6 months Comments:Call for followup [...] those arrangements as well.Have a great day. [facility]06-05-2023 Evaluation note* Encounter Date Diagnosis Assessment Notes Treatment Notes Treatment Clinical Notes Nov, Diabetes mellitus wi th chronic kidney disease (ICD-10 - E11.22) He has vor-olddkaf-zlwe ndent type 2 diabetes and currently takes [...] and has normal B12 and folate level. [employer] Other [id number] NoteRCRI- 2???points Class III Risk 10.1???% 30-day risk of , TX, or cardiac arrest EKG at last visit [...] and prevent any major fluid shifts. [facility]Un[facility]05-24-2023 NoteCoronary artery disease is stable, angina much improved s/p increased imdur dose and adding ranexa. Continue GDMTUnPremier Health [facility] Hospital05-24-2023 NoteUTP CARDIOLOGY PROGRESS NOTE HPI: Victorino Smyth [...] Risk 10.1 % 30-day risk of , TX, or cardiac arrest EKG at last visit SR with 1st Degree AV block- no acute changes. From a cardiology perspective pt may proceed with planned urological procedure, he is a moderate risk for a low-moderate risk procedure. May hold ASA for 5-7 days prior (more content not included)...[facility] 11-17-2022 NotePatient here for 1 mo follow up [...] pain. All other systems reviewed and are negative.[facility] 11-17-2022 NoteHypertension is well controlled today 126/60 with increased norvasc and imdur doses Continue norvasc, lisinopril, imdur, Renal function being monitored by nephrologyUnPrem[facility] 11-17-2022 NoteContinue statin- lipid level well controlledUnPremier [facility]05-24-2023 [id number]#[id number]:127 [facility]04-20-2023 NoteContinue statinUnPremier Health [facility]04-20-2023 NoteIncrease imdur to 120 mg and start ranexa as per Dr Huynh's recommendationsUnPremier Health [facility]04-20-2023 Note Reviewed concerning symptoms and recent [...] pain, angina, shortness of breath or further concerns.[facility]04-20-2023 NoteUTP CARDIOLOGY PROGRESS NOTE HPI: Victorino Smyth is a 82 y.o. male here for Chest Pain, Coronary Artery Disease, and Hypertension Patient here c/o chest tightness/burning with exertion the past few months. Says it feels similar to 2017 when he had an TX. Has been becoming more intense lately. States [...] March of 2013, and then developed acute TX related to ISR of the LAD stent on 09/28/2016 and underwent emergent Promus JOSE RAMON stent to the LAD at [facility], was on Brilinta but currently on aspirin [...] medications on file p (more content not included)...[facility]04-20-2023 NotePatient here c/o chest tightness with exertion the past few months. Says it feels similar to 2017 when he had an TX. Has been becoming more intense lately. Says [...] pain. All other systems reviewed and are negative.[facility] 10-07-2022 Hospital Discharge instructions Patient Education [...] Follow these instructions at home: Medicines Take euje-xuk-tralxan and prescription medicines only as told by [...] 07/02/2008 Document Revised: 09/24/2019 Document Reviewed: 05/04/2017 [employer] Patient Education 2019 [employer]. Follow Up Care 09/06/2022 10:38:13 With:Ni OLIVARES Address: [address] [place], [place] [id number] Business (1) When: Unknown Comments:We were able [...] prior to considering any other anesthesia procedures. [facility]04-13-2023 Evaluation + Plan noteExtracted from: Title:CSB post op Author:Timothy Pittman MD Date:10/07/22 Plan Transfer/Discharge: Transfer/Discharge Discharge when meets criteria ( To home ). Extracted from: Title:CSB GA Author:Timothy Pittman MD Date:10/07/22 Plan [place] [employer]esthesi[employer] (ASA) physical status classification: Class III. Anesthetic Preoperative Plan: Anesthesia General. Future Appointments Appointment Date:10/29/2022 08:45:00 AM Scheduled Provider:Milton BRAUN MD Location:[facility] Appointment Type:URO Office Visit [facility]03-23-2023 Note [id number]:127[facility] 09-15-2022 Evaluation note* Encounter Date Diagnosis Assessment Notes Treatment Notes Treatment Clinical Notes Aug, Diabetes mellitus wi th chronic kidney disease (ICD-10 - E11.22) He has ndg-hoxdxzu-rids ndent type 2 diabetes and currently takes [...] have advised him to adequately hydrate himself. [employer] Other 03-13-2023 Hospital Discharge instructions Patient Education 09/06/2022 10:27:16 Kidney Stones, Nptg-io-Lkle Kidney Stones Kidney stones are rock-like masses [...] Follow these instructions at home: Medicines Take npcq-tik-gilmadq and prescription medicines only as told by [...] 11/29/2008 Document Revised: 10/30/2019 Document Reviewed: 10/30/2019 [employer] Patient Education 2020 [employer] Follow Up Care 08/17/2022 09:18:37 With:MARSHALL OLIVEROS, Ni Garcia, URL Address: [address] [facility] [address] [place] [address]- When: Unknown [facility] Tom [id number] Note [id number]:127[facility] 08-15-2022 Discharge summary Author Hiral Interiano [facility] August 15, 2022 1:50pm Note Date/Time August 15, 2022 1:50pm [facility] [address] [place] [address] Discharge Summary Signed Patient: Victorino Smyth MR#: [id number] : 1940 Acct:[id number] Age/Sex: 82 / M Adm Date: 3 Loc: Room: [address] [place] [address]: Hiral Interiano MD Copies to: [...] history of nephrolithiasis. He initially presented to [facility] ER with complaint of hypoglycemia and was found to have severe renal failure along with metabolic acidosis and hyperkalemia. CT scan at [facility] showed atrophic left kidney with obstructing stone in the right ureteropelvic junction. Patient was transferred to [facility] for further intervention. On arrival is [...] is also advised to follow-up with his director zone in 4-week. CT scan at [facility] also showed 0.8 cm nodule on the [...] Low-Cholesterol Additional Instructions: Follow-up with your Primary Cloth Hauler in 4 weeks. Avoid NSAIDs for pain [...] office on Tuesday to schedule follow-up with Director Funeral. ) Documented By: Hiral Interiano MD 08/15/22 3443 Signed By: <Electronically signed by Hiral Interiano MD> 08/15/22 0462 [facility] Work Phone: 1(683) 385-876402-19-2023 Progress note Author Alicia Perea [facility] August 15, 2022 12:01pm Note Date/Time August 15, 2022 12:01pm [facility] [address] [place] [address] Nephrology Progress Note Signed Patient: Victorino Smyth MR#: [id number] : 1940 Acct:[id number] Age/Sex: 82 / M Adm Date: 3 Loc: Room: [address] [place] [address] Type: ADM IN Attending Dr: Hiral Interiano MD Copies to: ~ Date of Service: 08/15/2022 Subjective Subjective Narrative: This is a 82-year-old male with a medical history of coronary artery disease s/pPCI, nephrolithiasis, CKD, diabetes mellitus, hypertension, dyslipidemia was presented to the emergency room of [facility] for generalized weakness and low urine output. On evaluation emergency room patient was found to have a life- threatening hyperkalemia with serum potassium 7 mmol/L, acute kidney injurywith elevated serum creatinine 17.8 mg/dL, metabolic acidosis serum bicarbonate 13.5 mmol/L. He was given insulin D50 calcium gluconate in the [facility] emergency room. He had a CAT scan abdomen pelvis done which showed obstructive kidney stones in the right UPJ and total atrophy of the left kidney. Case was discussed with the on-call urologist Dr. Olivares and recommended patient needs to be n.p.o. for surgical intervention. He was transferred to [facility] for further care. Patient is history of CKD due to the longstanding DM, HTN and recurrent KELSEA with baseline serum creatinine 1.4 to 1.6 mg/dL. He follows in my office for his CKD care. Patient after arrival at the [facility] hada repeat labs done which showed persistent [...] visible mass Skin: No rashes or bruises CHAR PULLER: Awake,Alert, following simple command Musculoskeletal: No joint [...] Tablet) 10 mg PO DAILY [facility] Stop: 08/16/23 08:59 Aspirin (Aspirin 81 Mg Tablet.Dr) 81 mg PO DAILY [facility] Stop: 08/12/23 08:59 Last Admin: 08/15/22 09:45 Dose: 81 mg Atorvastatin Calcium (Atorvastatin 40 Mg Tablet) 40 mg PO HS [facility] Stop: 08/11/23 21:59 Last Admin: 08/14/22 21:08 [...] 300 Units/3 Ml Insuln.Pen) 0 units SUBCUT TID..[facility]; Protocol Stop: 08/11/23 16:59 Last Admin: 08/15/22 09:46 Dose: 5 units Insulin Glargine (Insulin Glargine 300 Units/3 Ml Insuln.Pen) 5 units SUBCUT DAILY [facility] Stop: 08/13/23 08:59 Last Admin: 08/15/22 09:47 Dose: 5 units Melatonin (Melatonin 5 Mg Tablet) 5 mg PO QHS PRN PRN Reason: insomnia Stop: 08/14/23 21:59 Last Admin: 08/14/22 21:08 Dose: 5 mg Metoprolol Tartrate (Metoprolol Tartrate 50 Mg Tablet) 50 mg PO BID [facility] Stop: 08/11/23 20:59 Last Admin: 08/15/22 09:45 [...] office. Documented By: Alicia Perea MD 08/15/22 1152 Signed By: <Electronically signed by Alicia Perea MD> 08/15/22 1207 [facility] Work Phone: 1(164) 498-468402-19-2023 Progress note Author Cade Alvarez [facility] August 15, 2022 11:31am Note Date/Time August 15, 2022 11:31am [facility] [address] [place] [address] Cardiology Progress Note Signed Patient: Victorino Smyth MR#: [id number] : 1940 Acct:[id number] Age/Sex: 82 / M Adm Date: 3 Loc: 4 Room: [address] [place] [address] Type: ADM IN Attending Dr: Hiral Interiano [...] patient has cardiology follow-up with his primary director zone in [place] within 4 weeks of discharge. (2) CAD (coronary artery disease): Code(s): I25.10 - Atherosclerotic heart disease of [place] coronary artery without angina pectoris Status: Acute [...] signed by Cade Alvarez MD> 08/15/22 1131 [facility] Work Phone: 1(409) 783-220702-18-2023 Progress note Author Hiral Interiano [facility] August 14, 2022 2:57pm Note Date/Time August 14, 2022 2:49pm [facility] [address] [place] [address] Hospitalist Progress Note Signed Patient: Victorino Smyth MR#: [id number] : 1940 Acct:[id number] Age/Sex: 82 / M Adm Date: 3 Loc: 4N Room: 4R6259-3 Type: ADM IN Attending Dr: Hiral Interiano [...] 08/12/23 21:59 Not Given Q8HR [facility] Hydralazine HCl 10 mg 08/11/22 13:41 08/14/22 [...] 08/11/23 16:59 Not Given TID.WM.HS [facility] Protocol Insulin Glargine 5 units 08/13/22 09:00 [...] days. Documented By: Hiral Interiano MD 08/14/22 1445 Signed By: <Electronically signed by Hiral Interiano MD> 08/14/22 9353 [facility] Work Phone: 1(271) 427-808802-18-2023 Progress note Author Alicia Perea [facility] August 14, 2022 11:55am Note Date/Time August 14, 2022 11:55am [facility] [address] [place] [address] Nephrology Progress Note Signed Patient: Victorino Smyth MR#: [id number] : 1940 Acct:[id number] Age/Sex: 82 / M Adm Date: 3 Loc: Room: [address] [place] [address] Type: ADM IN Attending Dr: Hiral Interiano MD Copies to: ~ Date of Service: 08/14/2022 Subjective Subjective Narrative: This is a 82-year-old male with a medical history of coronary artery disease s/pPCI, nephrolithiasis, CKD, diabetes mellitus, hypertension, dyslipidemia was presented to the emergency room of [facility] for generalized weakness and low urine output. On evaluation emergency room patient was found to have a life- threatening hyperkalemia with serum potassium 7 mmol/L, acute kidney injurywith elevated serum creatinine 17.8 mg/dL, metabolic acidosis serum bicarbonate 13.5 mmol/L. He was given insulin D50 calcium gluconate in the [facility] emergency room. He had a CAT scan abdomen pelvis done which showed obstructive kidney stones in the right UPJ and total atrophy of the left kidney. Case was discussed with the on-call urologist Dr. Olivares and recommended patient needs to be n.p.o. for surgical intervention. He was transferred to [facility] for further care. Patient is history of CKD due to the longstanding DM, HTN and recurrent KELSEA with baseline serum creatinine 1.4 to 1.6 mg/dL. He follows in my office for his CKD care. Patient after arrival at the [facility] hada repeat labs done which showed persistent [...] visible mass Skin: No rashes or bruises CHAR PULLER: Awake,Alert, following simple command Musculoskeletal: No joint [...] Mg Tablet.) 81 mg PO DAILY [facility] Stop: 08/12/23 08:59 Last Admin: 08/14/22 08:22 [...] BID [facility] Stop: 08/18/22 20:59 Last Admin: 08/14/22 08:23 [...] Q8HR [facility] Stop: 08/12/23 21:59 Last Admin: 08/14/22 06:05 [...] Insuln.Pen) 0 units SUBCUT TID.WM.HS [facility]; Protocol Stop: 08/11/23 16:59 Last Admin: 08/14/22 11:50 Dose: Not Given Insulin Glargine (Insulin Glargine 300 Units/3 Ml Insuln.Pen) 5 units SUBCUT DAILY [facility] Stop: 08/13/23 08:59 Last Admin: 08/13/22 08:45 Dose: Not Given Metoprolol Tartrate (Metoprolol Tartrate 50 Mg Tablet) 50 mg PO BID [facility] Stop: 08/11/23 20:59 Last Admin: 08/14/22 08:23 [...] Perez Jr., D.O.08/13/2022 2:25 PM Dictation Location: [place] [address] Any impression(s) listed above is documentation that [...] input output Documented By: Alicia Perea MD 08/14/221152 Signed By: <Electronically signed by Alicia Perea MD> 08/14/22 1156 [facility] Work Phone: 1(139) 597-251102-18-2023 Progress note Author Cade Alvarez [facility] August 14, 2022 11:21am Note Date/Time August 14, 2022 11:21am [facility] [address] [place] [address] Cardiology Progress Note Signed Patient: Victorino Smyth MR#: [id number] : 1940 Acct:[id number] Age/Sex: 82 / M Adm Date: 3 Loc: Room: [address] [place] [address] Type: ADM IN Attending Dr: Hiral Interiano [...] % (Auto) 79.6 Lymph % (Auto) 7.8 [place] % (Auto) 11.4 Eos % (Auto) 1.0 Baso % (Auto) 0.2 Nucleat RBC Rel Count 0.1 Neut # (Auto) 5.9 Lymph # (Auto) 0.6 L [place] # (Auto) 0.8 Eos # (Auto) 0.1 [...] MPV Neut % (Auto) Lymph % (Auto) [place] % (Auto) Eos % (Auto) Baso % (Auto) Nucleat RBC Rel Count Neut # (Auto) Lymph # (Auto) [place] # (Auto) Eos # (Auto) Baso # [...] make sure that he has follow-up in [facility] within 4 weeks of discharge. (2) CAD (coronary artery disease): Assessment/Problem Details: Stable/quiescent. No ischemic complications with yesterday's urological procedure. Code(s): I25.10 - Atherosclerotic heart disease of [place] coronary artery without angina pectoris Status: Acute Plan: Medical recommendations as above. Plan Thank you very much for this kind consultation and for allowing us to participate in the care of this very pleasant patient Time spent with patient Time Spent With Patient (min): 30 Documented By: Cade Alvarez MD 08/14/22 1118 Signed By: <Electronically signed by Cade Alvarez MD> 08/14/22 1121 [facility] Work Phone: [phone]) 512-138402-17-2023 Progress note Author Hiral Interiano [facility] August 13, 2022 3:09pm Note Date/Time August 13, 2022 3:02pm [facility] [address] [place] [address] Hospitalist Progress Note Signed Patient: Victorino Smyth MR#: [id number] : 1940 Acct:[id number] Age/Sex: 82 / M Adm Date: 3 Loc: 4N Room: [address] [place] [address] Type: ADM IN Attending Dr: Hiral Interiano [...] 08/11/23 16:59 Not Given TID.WM.HS [facility] Protocol Insulin Glargine 5 units 08/13/22 09:00 [...] <Electronically signed by Hiral Interiano MD> 08/13/22 1509 [facility] Work Phone: [phone]) 800-868102-17-2023 Progress note Author Alicia Perea [facility] August 13, 2022 11:29am Note Date/Time August 13, 2022 11:25am [facility] [address] [place], [place] [address] Nephrology Progress Note Signed Patient: Victorino Smyth MR#: [id number] : 1940 Acct:[id number] Age/Sex: 82 / M Adm Date: 3 Loc: Room: [address] [place] [address] Type: ADM IN Attending Dr: Hiral Interiano MD Copies to: ~ Date of Service: 08/13/2022 Subjective Subjective Narrative: This is a 82-year-old male with a medical history of coronary artery disease s/pPCI, nephrolithiasis, CKD, diabetes mellitus, hypertension, dyslipidemia was presented to the emergency room of [facility] for generalized weakness and low urine output. On evaluation emergency room patient was found to have a life- threatening hyperkalemia with serum potassium 7 mmol/L, acute kidney injurywith elevated serum creatinine 17.8 mg/dL, metabolic acidosis serum bicarbonate 13.5 mmol/L. He was given insulin D50 calcium gluconate in the [facility] emergency room. He had a CAT scan abdomen pelvis done which showed obstructive kidney stones in the right UPJ and total atrophy of the left kidney. Case was discussed with the on-call urologist Dr. Olivares and recommended patient needs to be n.p.o. for surgical intervention. He was transferred to [facility] for further care. Patient is history of CKD due to the longstanding DM, HTN and recurrent KELSEA with baseline serum creatinine 1.4 to 1.6 mg/dL. He follows in my office for his CKD care. Patient after arrival at the [facility] hada repeat labs done which showed persistent [...] visible mass Skin: No rashes or bruises CHAR PULLER: Awake,Alert, following simple command Musculoskeletal: No joint [...] DAILY [facility] Stop: 08/12/23 08:59 Last Admin: 08/13/22 08:44 Dose: Not Given Atorvastatin Calcium (Atorvastatin 40 Mg Tablet) 40 mg PO HS [facility] Stop: 08/11/23 21:59 Last Admin: 08/12/22 21:07 Dose: 40 mg Dextrose (Dextrose 50% In Water 25 Gm/50 Ml Syringe) 0 gm IV-PUSH PRN PRN PRN Reason: Hypoglycemia Stop: 08/11/23 14:01 Glucose (Dextrose 40% Gel 15 Gm Tube) 0 gm PO PRN PRN PRN Reason: Hypoglycemia Stop: 08/11/23 14:01 Guaifenesin (Guaifenesin 600 Mg Tab.Er.12h) 1,200 mg PO BID [facility] Stop: 08/12/23 20:59 Last Admin: 08/13/22 08:45 [...] Vial) 5,000 unit SUBCUT Q8HR [facility] Stop: 08/12/23 21:59 Last Admin: 08/13/22 07:08 Dose: 5,000 unit Hydralazine HCl (Hydralazine 20 Mg/Ml Vial) 10 mg IV-PUSH Q4H PRN PRN Reason: Hypertension Stop: 08/11/23 13:40 Last Admin: 08/12/22 23:04 Dose: 10 mg Ceftriaxone Sodium (Rocephin) 1 gm in 50 mls @ 100 mls/hr IV Q24H [facility] Last Admin: 08/12/22 16:24 Dose: 100 mls/hr Azithromycin (Zithromax) 500 mg in 250 mls @ 250 mls/hr IV Q24H [facility] Last Admin: 08/12/22 15:06 Dose: 250 mls/hr Sodium Chloride (0.9% Sodium Chloride 1,000 Ml) 1,000 mls @ 0 mls/hr MISCELLANE.Q0M PRN PRN Reason: Dialysis Stop: 08/11/23 14:19 Last Infusion: 08/12/22 12:38 Dose: Infused Insulin Aspart (Insulin Aspart 300 Units/3 Ml Insuln.Pen) 0 units SUBCUT TID.WM.HS [facility]; Protocol Stop: 08/11/23 16:59 Last Admin: 08/13/22 08:44 Dose: Not Given Insulin Glargine (Insulin Glargine 300 Units/3 Ml Insuln.Pen) 5 units SUBCUT DAILY [facility] Stop: 08/13/23 08:59 Last Admin: 08/13/22 08:45 Dose: Not Given Metoprolol Tartrate (Metoprolol Tartrate 50 Mg Tablet) 50 mg PO BID [facility] Stop: 08/11/23 20:59 Last Admin: 08/13/22 08:45 [...] input output Documented By: Alicia Perea MD 08/13/221123 Signed By: <Electronically signed by Alicia Perea MD> 08/13/22 1129 [facility] Work Phone: 1([phone] 436-150402-17-2023 Progress note Author Cade Alvarez [facility] August 13, 2022 9:40am Note Date/Time August 13, 2022 9:35am [facility] [address] [place] [address] Cardiology Progress Note Signed Patient: Victorino Smyth MR#: [id number] : 1940 Acct:[id number] Age/Sex: 82 / M Adm Date: 3 Loc: Room: [address] [place] [address] Type: ADM IN Attending Dr: Hiral Interiano [...] MPV Neut % (Auto) Lymph % (Auto) [place] % (Auto) Eos % (Auto) Baso % (Auto) Nucleat RBC Rel Count Neut # (Auto) Lymph # (Auto) [place] # (Auto) Eos # (Auto) Baso # [...] RNA (PCR) IU/mL N/A HCV RNA PCR [employer] log10 N/A Hepatitis C Interp 08/12/22 08/12/22 08/13/22 19:37 21:06 04:28 Corrected WBC 9.9 Uncorrected WBC Count 9.9 RBC 3.54 L Hgb 11.6 L Hct 34.2 L MCV 96.5 MCH 32.9 MCHC 34.1 RDW 13.7 Plt Count 129 L MPV 8.7 Neut % (Auto) 79.2 Lymph % (Auto) 9.6 [place] % (Auto) 9.8 Eos % (Auto) 0.9 Baso % (Auto) 0.5 Nucleat RBC Rel Count 0.1 Neut # (Auto) 7.8 H Lymph # (Auto) 0.9 L [place] # (Auto) 1.0 H Eos # (Auto) [...] HCV RNA (PCR) IU/mL HCV RNA PCR [employer]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 Plan Thank you very much for this kind consultation and for allowing us to participate in the care of this very pleasant patient Time spent with patient Time Spent With Patient (min): 30 Documented By: Cade Alvarez MD 08/13/22 0934 Signed By: <Electronically signed by Cade Alvarez MD> 08/13/2240 [facility] Work Phone: 1(189) 636-911302-16-2023 Progress note Author Hiral Interiano [facility] August 12, 2022 4:04pm Note Date/Time August 12, 2022 4:04pm [facility] [address] [place] [address] Hospitalist Progress Note Signed Patient: Victorino Smyth MR#: [id number] : 1940 Acct:[id number] Age/Sex: 82 / M Adm Date: 3 Loc: Room: [address] [place] [address] Type: ADM IN Attending Dr: Hiral Interiano [...] 08/12/22 09:00 08/12/22 08:20 Aspirin 81 Mg Tablet.Dr PO 08/12/23 08:59 [...] 08/11/23 16:59 Not Given TID.WM.HS [facility] Protocol Metoprolol Tartrate 50 mg 08/11/22 21:00 [...] kidney disease: Plan: Patient was transferred from [facility] ER when found to have acute kidney [...] <Electronically signed by Hiral Interiano MD> 08/12/22 1607 [facility] Work Phone: 1(894) 257-560302-16-2023 Progress note Author Alicia Perea [facility] August 12, 2022 11:29am Note Date/Time August 12, 2022 11:24am [facility] [address] [place] [address] Nephrology Progress Note Signed Patient: Victorino Smyth MR#: [id number] : 1940 Acct:[id number] Age/Sex: 82 / M Adm Date: 3 Loc: Room: [address] [place] [address] Type: ADM IN Attending Dr: Hiral Interiano MD Copies to: ~ Date of Service: 08/12/2022 Subjective Subjective Narrative: This is a 82-year-old male with a medical history of coronary artery disease s/pPCI, nephrolithiasis, CKD, diabetes mellitus, hypertension, dyslipidemia was presented to the emergency room of [facility] for generalized weakness and low urine output. On evaluation emergency room patient was found to have a life- threatening hyperkalemia with serum potassium 7 mmol/L, acute kidney injurywith elevated serum creatinine 17.8 mg/dL, metabolic acidosis serum bicarbonate 13.5 mmol/L. He was given insulin D50 calcium gluconate in the [facility] room. He had a CAT scan abdomen pelvis done which showed obstructive kidney stones in the right UPJ and total atrophy of the left kidney. Case was discussed with the on-call urologist Dr. Olivares and recommended patient needs to be n.p.o. for surgical intervention. He was transferred to [facility] for further care. Patient is history of CKD due to the longstanding DM, HTN and recurrent KELSEA with baseline serum creatinine 1.4 to 1.6 mg/dL. He follows in my office for his CKD care. Patient after arrival at the [facility] hada repeat labs done which showed persistent [...] visible mass Skin: No rashes or bruises CHAR PULLER: Awake,Alert, following simple command Musculoskeletal: No joint [...] Tablet.Dr) 81 mg PO DAILY [facility] Stop: 08/12/23 08:59 Last Admin: 08/12/22 08:20 Dose: 81 mg Atorvastatin Calcium (Atorvastatin 40 Mg Tablet) 40 mg PO [facility] Stop: 08/11/23 21:59 Last Admin: 08/11/22 21:08 [...] @ 100 mls/hr IV Q24H [facility] Last Infusion: 08/11/22 21:49 Dose: Infused Azithromycin (Zithromax) 500 mg in 250 mls @ 250 mls/hr IV Q24H [facility] Last Admin: 08/11/22 16:00 Dose: 250 mls/hr Sodium Chloride (0.9% Sodium Chloride 1,000 Ml) 1,000 mls @ 0 mls/hr MISCELLANE.Q0M PRN PRN Reason: Dialysis Stop: 08/11/23 14:19 Last Admin: 08/12/22 10:24 Dose: 999 mls/hr Insulin Aspart (Insulin Aspart 300 Units/3 Ml Insuln.Pen) 0 units SUBCUT TID.WM.[facility]; Protocol Stop: 08/11/23 16:59 Last Admin: 08/12/22 08:07 Dose: Not Given Metoprolol Tartrate (Metoprolol Tartrate 50 Mg Tablet) 50 mg PO BID [facility] Stop: 08/11/23 20:59 Last Admin: 08/12/22 08:20 [...] Rehan Fuentes M.D.08/11/2022 4:10 PM Dictation Location: [place] [address] Any impression(s) listed above is documentation that [...] <Electronically signed by Alicia Perea MD> 08/12/22 [facility] Work Phone: 1([phone]) 156-174302-16-2023 Progress note Author Cade Alvarez [facility] August 12, 2022 10:04am Note Date/Time August 12, 2022 10:05am [facility] [address] [place] [address] Cardiology Progress Note Signed Patient: Victorino Smyth MR#: [id number] : 1940 Acct:[id number] Age/Sex: 82 / M Adm Date: 3 Loc: Room: [address] [place] [address] Type: ADM IN Attending Dr: Hiral Interiano [...] % (Auto) N/A Lymph % (Auto) N/A [place] % (Auto) N/A Eos % (Auto) N/A Baso % (Auto) N/A Nucleat RBC Rel Count N/A Neut # (Auto) N/A Lymph # (Auto) N/A Durham # (Auto) N/A Eos # (Auto) N/A [...] MPV Neut % (Auto) Lymph % (Auto) Durham % (Auto) Eos % (Auto) Baso % (Auto) Nucleat RBC Rel Count Neut # (Auto) Lymph # (Auto) Durham # (Auto) Eos # (Auto) Baso # [...] MPV Neut % (Auto) Lymph % (Auto) [place] % (Auto) Eos % (Auto) Baso % (Auto) Nucleat RBC Rel Count Neut # (Auto) Lymph # (Auto) Durham # (Auto) Eos # (Auto) Baso # [...] % (Auto) 88.0 Lymph % (Auto) 4.4 Durham % (Auto) 7.4 Eos % (Auto) 0.0 Baso % (Auto) 0.2 Nucleat RBC Rel Count 0.0 Neut # (Auto) 11.8 H Lymph # (Auto) 0.6 L Durham # (Auto) 1.0 H Eos # (Auto) [...] MPV Neut % (Auto) Lymph % (Auto) Durham % (Auto) Eos % (Auto) Baso % (Auto) Nucleat RBC Rel Count Neut # (Auto) Lymph # (Auto) [place] # (Auto) Eos # (Auto) Baso # [...] Code(s): I25.10 - Atherosclerotic heart disease of [place] coronary artery without angina pectoris Status: Acute Plan: Preoperative recommendations as above. Plan Thank you very much for this kind consultation and for allowing us to participate in the care of this very pleasant patient Time spent with patient Time Spent With Patient (min): 30 Documented By: Cade Alvarez MD 08/12/22 0959 Signed By: <Electronically signed by Cade Alvarez MD> 08/12/22 1004 [facility] Work Phone: 1([phone]) 191-600602-15-2023 Consult note Author Alicia Perea [facility] August 11, 2022 5:46pm Note Date/Time August 11, 2022 4:00pm [facility] [address] [place] [address] Nephrology Consult Note Signed with Nancy Patient: Victorino Smyth MR#: [id number] : 1940 Acct:[id number] Age/Sex: 82 / M Adm Date: 3 Loc: Room: [address] [place] [address] Type: ADM IN Attending Dr: Hiral Interiano [...] was presented to the emergency room of [facility] for generalized weakness and low urine output. On evaluation emergency room patient was found to have a life- threatening hyperkalemia with serum potassium 7 mmol/L, acute kidney injurywith elevated serum creatinine 17.8 mg/dL, metabolic acidosis serum bicarbonate 13.5 mmol/L. He was given insulin D50 calcium gluconate in the [facility]. He had a CAT scan abdomen pelvis done which showed obstructive kidney stones in the right UPJ and total atrophy of the left kidney. Case was discussed with the on-call urologist Dr. Olivares and recommended patient needs to be n.p.o. for surgical intervention. He was transferred to [facility] for further care. Patient is history of CKD due to the longstanding DM, HTN and recurrent KELSEA with baseline serum creatinine 1.4 to 1.6 mg/dL. He follows in my office for his CKD care. Patient after arrival at the [facility] hada repeat labs done which showed persistent [...] mg PO DAILY [facility] Stop: 08/12/23 08:59 Atorvastatin Calcium (Atorvastatin 40 Mg Tablet) 40 mg PO HS [facility] Stop: 08/11/23 21:59 Dextrose (Dextrose 50% In [...] mls @ 100 mls/hr IV Q24H [facility] Azithromycin (Zithromax) 500 mg in 250 mls @ 250 mls/hr IV Q24H [facility] Sodium Chloride (0.9% Sodium Chloride 1,000 Ml) 1,000 mls @ 0 mls/hr MISCELLANE .Q0M PRN PRN Reason: Dialysis Stop: 08/11/23 14:19 Insulin Aspart (Insulin Aspart 300 Units/3 Ml Insuln.Pen) 0 units SUBCUT TID.WM.[facility]; Protocol Stop: 08/11/23 16:59 Metoprolol Tartrate (Metoprolol Tartrate 50 Mg Tablet) 50 mg PO BID [facility] Stop: 08/11/23 20:59 Nitroglycerin (Nitroglycerin 0.4 Mg [...] visible mass Skin: No rashes or bruises CHAR PULLER: Awake,Alert, following simple command Musculoskeletal: No joint [...] Patient consented for dialysis. I consulted the cad cam programmer for hemodialysis catheter placement which was placed [...] team. Documented By: Alicia Perea MD 08/11/22 5595 Signed By: <Electronically signed by Alicia Perea MD> 08/11/22 7639 [facility] Work Phone: 1(181) 511-234602-15-2023 Consult note Author Cade Alvarez [facility] August 11, 2022 4:47pm Note Date/Time August 11, 2022 4:36pm [facility] [address] [place] [address] Cardiology Consult Note Signed Patient: Victorino Smyth MR#: [id number] : 1940 Acct:[id number] Age/Sex: 82 / M Adm Date: 3 Loc: 4C Room: 3R9371-1 Type: ADM IN Attending Dr: Hiral Interiano [...] initial PCI to the proximal LAD in 2012 with repeat PCI in the setting of acute coronary syndrome in 2017. Patient initially presented to [facility] department complaining of shortness of breath [...] # (Auto) N/A Lymph # (Auto) N/A [place] # (Auto) N/A Eos # (Auto) N/A [...] nonspecific abnormality, ST segment, and/or T wave TX, pacemaker, normal Normal tracing: no change compared [...] Code(s): I25.10 - Atherosclerotic heart disease of [place] coronary artery without angina pectoris Plan Thank you very much for this kind consultation and for allowing us to participate in the care of this very pleasant patient Documented By: Cade Alvarez MD 08/11/22 1634 Signed By: <Electronically signed by Cade Alvarez MD> 08/11/22 1647 [facility] Work Phone: [phone] 485-765502-15-2023 Consult note Author Ni Olivares [facility] August 11, 2022 3:24pm Note Date/Time August 11, 2022 3:24pm [facility] [address] [place] [address] Urology Consult Note Signed Patient: Victorino Smyth MR#: [id number] : 1940 Acct:[id number] Age/Sex: 82 / M Adm Date: 3 Loc: Room: [address] [place] [address] Type: ADM IN Attending Dr: Hiral Interiano MD Copies to: MD Ni James MD Mazhar Rahman, MD~ History of Present Illness Consult Details Consult Date: 08/11/2022 Requesting Provider: Hiral Interiano MD HPI: Mr. Smyth is an 82-year-old man transferred from the [facility] earliertoday. The patient presented with [...] the emergency room prior to transfer to [facility]. He finished breakfast at about 11 [...] % (Auto) N/A, Lymph % (Auto) N/A, Durham % (Auto) N/A, Eos % (Auto) N/A, Baso % (Auto) N/A, Nucleat RBC Rel Count N/A, Neut # (Auto) N/A, Lymph # (Auto) N/A, Durham # (Auto) N/A, Eos # (Auto) N/A, [...] actually worse than that noted at the [facility] at a current level of [...] clinically indicated. Documented By: Ni Olivares MD 08/11/221512 Signed By: <Electronically signed by MD Ni Olivares> 08/11/22 5408 [facility] Work Phone: [phone]) [phone] History and physical note Author Hiral Interiano [facility] August 11, 2022 2:02pm Note Date/Time August 11, 2022 2:02pm [facility] [address] [place] [address] Hospitalist H&P Signed Patient: Victorino Smyth MR#: [id number] : 1940 Acct:[id number] Age/Sex: 82 / M Adm Date: 3 Loc: Room: [address] [place] [address] Type: ADM IN Attending Dr: Hiral Interiano [...] of nephrolithiasis. Patient has been transferred from [facility] ER for acute kidney injury [...] repeated labs available in the record from [facility]. Chest x-ray read as mild bilateral lower [...] a similar feeling when he had an TX in 2016 and prior to that in 2012. Stat [...] noted below or in HPI [facility] Medical History (Updated 08/11/22 @ 13:59 by [...] type 2. He has been transferred from [facility] for obstructive uropathy with worsening renal failure and hyperkalemia. I was informed the patient was given cocktail for hyperkalemia with no repeated labs available in the record. Patient arrival to floor complaining of midsternal discomfort and mentioned having similar feeling when he had an TX. Does appear tachypneic likely from metabolic acidosis. [...] <Electronically signed by Hiral Interiano MD> 08/11/22 1401 [facility] Work Phone: [phone]) [phone] [facility]* Encounter Date Diagnosis Assessment Notes Treatment Notes Treatment Clinical Notes May, Diabetes mellitus wi th chronic kidney disease (ICD-10 - E11.22) He has mms-hlhoxlm-ivtn ndent type 2 diabetes and currently takes [...] would like to continue it. 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 [facility] Other 08-11-2022 NotePROCEDURE: XR KNEE LT 4V or > COMPARISON: None. HISTORY: Pain of left knee joint FINDINGS: BONES:No acute fracture or dislocation. Minimal degenerative changes. SOFT TISSUES:Negative. No visible soft tissue swelling. EFFUSION:None visible. OTHER: Vascular calcification IMPRESSION: No acute abnormality Electronically authenticated by: TYLER MONSIVAIS Date: 2022-02-04 07:23[facility]05-31-2022 Evaluation note* Encounter Date Diagnosis Assessment Notes Treatment Notes Treatment Clinical Notes October, Diabetes mellitus wi th chronic kidney disease (ICD-10 - E11.22) He has qez-wjsgrwn-jixtp dent type 2 diabetes and currently takes [...] down the progression of disease. 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 [facility] Other 05-02-2022 Hospital Discharge instructions Follow Up Care 10/26/2021 10:06:54 With:KADE OLIVEROS, Milton Brewer, URL Address: [address] [place] [address] [place] [address]- When: Unknown [facility] 05-02-2022 Hospital Discharge instructions Patient Education 10/26/2021 [...] 06/13/2006 Document Revised: 03/02/2019 Document Reviewed: 05/13/2017 [employer] Patient Education 2020 [employer]. 10/26/2021 09:44:44 Urinary Frequency, Adult Urinary Frequency, [...] to keep your urine pale yellow. ?Take rjum-rhi-fdzzdht or prescription medicines. ?Eat foods that are high in fiber, such as beans, whole grains, and fresh fruits and vegetables. ?Limit foods that are high in fat and processed sugars, such as fried or sweet foods. General instructions Take mbos-ioi-xddddyt and prescription medicines only as told by [...] the muscles that help control urination. Take fato-wza-fiofetz and prescription medicines only as told by your health care provider. Contact a health care provider if your symptoms do not improve or get worse. This information is not intended to replace advice given to you by your health care provider. Make sure you discuss any questions you have with your health care provider. Document Released: 04/09/2010 Document Revised: 12/21/2018 Document Reviewed: 12/21/2018 [employer] Patient Education 2020 [employer] 10/26/2021 09:44:41 Kidney Stones, Mpcx-sr-Idzt Kidney Stones Kidney stones are rock-like masses [...] Follow these instructions at home: Medicines Take yvwc-glx-osbpzwk and prescription medicines only as told by [...] 11/29/2008 Document Revised: 10/30/2019 Document Reviewed: 10/30/2019 [employer] Patient Education 2020 [employer]. Follow Up Care 02/23/2021 14:09:11 With:Milton BRAUN MD, URL Address: [facility] [address], [place] [address]- When:10/26/2022 [facility] 11-30-2021 Evaluation note* Encounter Date Diagnosis Assessment Notes Treatment Notes Treatment Clinical Notes Apr, Diabetes mellitus wi th chronic kidney disease (ICD-10 - E11.22) He has gto-oyiewfm-ltpen dent type 2 diabetes and currently takes [...] have advised him to adequately hydrate himself. [employer] Other Evaluation + Plan note Future Appointments Appointment Date:10/29/2022 08:45:00 AM Scheduled Provider:Milton BRAUN MD Location:[facility] Appointment Type:URO Office Visit [facility] evaluation + Plan note Future Appointments Appointment Date:09/14/2022 07:30:00 AM Scheduled Provider: Location:[facility] Appointment Type:Surgical PAT FT Appointment Date:10/07/2022 12:00:00 PM Scheduled Provider: Location:[facility] Appointment Type:Surgery FT Appointment Date:10/29/2022 08:45:00 AM Scheduled Provider:Milton BRAUN MD Location:[facility] Appointment Type:URO Office Visit [facility] evaluation + Plan note Future Appointments Appointment Date:11/18/2022 10:30:00 AM Scheduled Provider: Location:[facility] Appointment Type:Surgical PAT FT Appointment Date:12/02/2022 11:45:00 AM Scheduled Provider: Location:[facility] Appointment Type:Surgery FT [facility] evaluation + Plan note Future Appointments Appointment Date:06/12/2024 11:00:00 AM Scheduled Provider:Ni OLIVARES MD Location:[facility] Appointment Type:URO Office Visit Future Scheduled Tests Laboratory* Total Protein 24 Hour Urine 02/14/23 [facility] Evaluation note* Diagnosis Onset Date Resolution Status Acute kidney injury superimp osed on chronic kidney disease acute Acute kidney insufficiency a cute CAD (coronary artery disease) acute CKD (chronic kidney disease) stage 3, GFR 30-59 ml/min acute Elevated PSA acute Hydronephrosis with ureteral calculus acute Hyperkalemia acute [id number] acute Left renal atrophy acute Metabolic acidosis acute Obstructive nephropathy acut e Preoperative cardiovascular examination acute Right ureteral stone acute 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 Diabetes chronic [facility] Work Phone: Evaluation noteNo assessment information available [facility] Work Phone: Hishguh general Narrative - Reported* Type Description Date Medical History DIABETES MELLITUS Medical History CORONARY ARTERY DISEASE Medical History MORBID OSESITY Surgical History HERNEA LOWER RIGHT ABDOMINAL Surgical History HEART ATTACK WITH STENT PLACEME NT IN THE LAD Surgical History KIDNEY STENTS X 2 Surgical History PROSTRATE BIO PAD Surgical History KIDNEY STENTS X2 Surgical History KIDNEY STONE REMOVAL Hospitalization History SEE ABOVE [facility] Other Hiskyvj general Narrative - Reported* Type Description Date [...] KIDNEY STONE REMOVAL Hospitalization History SEE ABOVE [facility] Other Hisdcpx general Narrative - Reported* Type Description Date [...] KIDNEY STONE REMOVAL Hospitalization History SEE ABOVE [facility] Other Hiscghv general Narrative - Reported* Type Description Date [...] History KELSEA, HYPERKALEMIA, METAB OLIC ACIDOSIS 08/11/2022 [facility] Other Hospital course Narrative No data available for this section [facility] Discharge instructions Additional Instructions Follow-up with your Primary Cloth Hauler in 4 weeks. Avoid NSAIDs for pain control. [facility] at [phone] to arrange a follow up CT scan regarding lung nodule in 4 weeks. Maintain occlussive dressing to HD catheter removal site for 48 hours - return to the Emergency Room for oozing or drainage from catheter exit site, noticeable swelling or itching around neck, shortness of breath, [facility] Work Phone: Progress note No data available for this section [facility] [place] Chief Complaint and Reason for Visit Chief Complaint ACUTE RENAL FAILURE Reason for Visit Acute kidney injury superimposed on chronic kidney disease Acute kidney insufficiency CAD (coronary artery disease) CKD (chronic kidney disease) stage 3, GFR 30-59 ml/min Elevated PSA Hydronephrosis with ureteral calculus Hyperkalemia [id number] Left renal atrophy Metabolic acidosis Obstructive nephropathy [...] content) Team Status: Inactive Member Role Status Dates Tray Alfaro MD Primary Care Provider Active Hiral [...] Kiser MD Other Provider Active Jen Tamayo GRIP WRAPPER- Other Provider Active Aaliyah Mitchell MD Other Provider Active Alicia Perea MD Other Provider Active Miltno Braun MD Other Provider Active Ni Olivares MD Other Provider Active Yogesh Omalley MD Other Provider Active Kiran Eldridge Jr, MD Other Provider Active Fátima Ivey MD Other Provider Active Shaquille Villarreal MD Other Provider Active Bpiin Barclay MD Other Provider Active Team Status: Active Member Role Status Dates Tray Alfaro MD Primary Care Provider Active Team Status: Inactive Member Role Status Dates Tray Alfaro MD Primary Care Provider Active Ni Olivares MD Attending Provider Active (unrecognized sect ion and content) No Status Records FoundNo Status Records FoundNo Status Records FoundNo Status Records FoundNo Status Records FoundNo Status Records Found INFORMATION SOURCE (unrecogn ized section and content) DATE CREATED AUTHOR 10/03/2022 [facility] DATE CREATED AUTHOR AUTHOR'S ORGANIZ ATION 12/07/2022 [facility] DATE CREATED AUTHOR AUTHOR'S ORGANIZ ATION 07/05/2023 [facility] DATE CREATED AUTHOR AUTHOR'S ORGANIZ ATION 08/05/2023 [facility] DATE CREATED AUTHOR AUTHOR'S ORGANIZ ATION 09/07/2023 [facility] DATE CREATED AUTHOR AUTHOR'S ORGANIZ ATION 09/12/2023 [facility] EPIC Goals (unrecognized section and content) Goals may [...] BE BASED ON THE PRIMARY CLINICAL RECORDS. [employer] provides no warranty or guarantee of the accuracy or completeness of information in this document.
--- NOTE | 2023-09-27 09:18 | CT_ITS ---
[address] [address] Patient Name: GLADYS SMYTH MRN: [id number] date: 1940 Sex: M Assigned Patient Location: CT Current Patient Location: CT Accession/Order Number: [id number] Exam Date: 09/27/2023 09:05 Report Date: 09/27/2023 16:05 At the request of: JENNIFER DRISCOLL Procedure: CT abdomen pelvis w con EXAMINATION: CT abdomen pelvis w con HISTORY: history of appendicitis Z87.19 COMPARISON: CT abdomen pelvis 08/29/2023 TECHNIQUE: Axial, Coronal, and Sagittal images were obtained without and/or with IV contrast as indicated by examination type. Dose reduction techniques were achieved by using automated exposure control and/or adjustment of mA and/or kV according to patient size and/or use of iterative reconstruction technique. FINDINGS: LUNG BASES: No visible pulmonary or pleural disease. LIVER: No enlargement, atrophy, suspicious density, or significant focal lesion. BILIARY: No dilatation or calcification. PANCREAS: No lesion, fluid collection, or abnormal duct dilatation. SPLEEN: No enlargement or focal lesion. ADRENALS: No mass or enlargement. KIDNEYS: Benign-appearing right renal cysts. Marked left renal atrophy. No mass, obstruction, or calcification. BOWEL/MESENTERY: No dilated, inflamed appendix 17 mm in diameter. No free air or free fluid. No visible mass, obstruction, or wall thickening of stomach, small bowel, and colon.. AORTA/VASCULAR: No aneurysm or dissection. RETROPERITONEUM: No mass or adenopathy. LYMPH NODES: No adenopathy. URINARY BLADDER: No visible focal wall thickening, lesion, or calculus. PELVIC ORGANS: Slightly prominent, heterogeneous prostate. ABDOMINAL WALL: No mass or hernia. BONES: No bony lesion or fracture. OTHER: Negative. CT/CT abdomen pelvis w con IMPRESSION: 1. Enlarged and inflamed appendix, but less than seen one month ago. Given the persistence enlargement and soft tissue thickening of the appendix, tumor cannot be excluded. Electronically authenticated by: TESS FORD Date: 09/27/2023 16:05
== END 2023-09-27 07:55 | disposition home or self-care (01) ==
LOC: CT 07:54
PROVIDERS: PCP Family Medicine; Visit Provider Surgery
DX: N28.1 Cyst of kidney, acquired (principal); Z87.19 Personal history of other diseases of the digestive system
CPT/HCPCS: 74177; Q9966

== ENCOUNTER 2023-10-10 15:27 | Outpatient (OUT) | payer MEDICARE, SELFPAY | END 2023-10-10 15:28 | disposition home or self-care (01) | LOC: PST 15:27 | PROVIDERS: PCP Family Medicine; Visit Provider Surgery | DX: Z01.818 Encounter for other preprocedural examination (principal) ==

== ENCOUNTER 2023-10-18 10:31 | Day surgery (SDC) | payer MEDICARE, SELFPAY ==
[2023-10-18 10:38] VITALS: BP 157/99; PULSE 101; TEMP 36.3; O2SAT 96; BMI 36.1
[2023-10-18 10:53] LABS: Glucometer 108 mg/dL (74-106)
[2023-10-18] MEDS: LACTATED RINGER'S SOLUTION 1,000 ML 50 ML IV (11:01)
--- NOTE | 2023-10-18 13:15 | PM.GSPRC ---
Date of procedure: 10/18/23 Indications for Procedure: diagnostic colonoscopy for appendiceal inflammation Pre-op diagnosis: diagnostic colonoscopy for appendiceal inflammation Post-op diagnosis: other (sigmoid diverticulosis and sub-centimeter descending colon polyp at 50cm cold forcep biopsy then removed with hot snare ) Procedure: Previous colonoscopy: 7-10 years ago, pt is unsure of exact time diagnostic colonoscopy PROCEDURE: The patient was given IV conscious sedation.? The patient's SPO2 remained above 90% throughout the procedure. The colonoscope was inserted per rectum and advanced under direct vision to the cecum without difficulty.?The prep was good.? Findings: Terminal ileum os: normal Cecum/Ascending colon: normal Transverse colon: normal Descending/Sigmoid colon: sigmoid diverticulosis and sub-centimeter descending colon polyp at 50cm cold forcep biopsy then removed with hot snare Rectum/Anus: examined in normal and retroflexed positions and was normal Withdrawal Time was (minutes): 13 The colon was decompressed and the scope was removed.? The patient tolerated the procedure well. Recommendations/Plan: 1.? Lifestyle and dietary modifications as discussed 2.? F/U Biopsies 3.? F/U in 7-10 days in clinic 4.? Discussed with the family Findings: sigmoid diverticulosis and sub-centimeter descending colon polyp at 50cm cold forcep biopsy then removed with hot snare Anesthesia: MAC Surgeon: Shaquille Alvarado Procedure Summary: diagnostic colonoscopy and sub-centimeter descending colon polyp at 50cm cold forcep biopsy then removed with hot snare Estimated blood loss (mL): 1 Specimens: descending colon polyp Complications: No Pathology: other (descending colon polyp ) Condition: stable Disposition: PACU
[2023-10-18 13:53] VITALS: BP 115/58; PULSE 84; TEMP 36.1; O2SAT 96
[2023-10-18 14:08] VITALS: BP 125/58; PULSE 95; O2SAT 96
[2023-10-18 14:23] VITALS: BP 113/59; PULSE 93; O2SAT 96
== END 2023-10-18 14:30 | disposition home or self-care (01) ==
PROVIDERS: PCP Family Medicine; Visit Provider Surgery
PROC: (CPT 45385; principal; 2023-10-18 11:50)
DX: K57.30 Diverticulosis of large intestine without perforation or abscess without bleeding (principal); K63.5 Polyp of colon; Z79.84 Long term (current) use of oral hypoglycemic drugs; E11.9 Type 2 diabetes mellitus without complications; Z87.891 Personal history of nicotine dependence; I25.2 Old myocardial infarction; C61 Malignant neoplasm of prostate; E03.9 Hypothyroidism, unspecified; E66.3 Overweight; E78.5 Hyperlipidemia, unspecified; I10 Essential (primary) hypertension; I25.10 Atherosclerotic heart disease of native coronary artery without angina pectoris; I51.7 Cardiomegaly; J44.9 Chronic obstructive pulmonary disease, unspecified; N13.9 Obstructive and reflux uropathy, unspecified; Z87.442 Personal history of urinary calculi; Z95.5 Presence of coronary angioplasty implant and graft; K37 Unspecified appendicitis; Z68.32 Body mass index [BMI] 32.0-32.9, adult
CPT/HCPCS: 45385; 36415; 82948; 88305; 99999; J2704

== ENCOUNTER 2023-12-01 09:29 | Outpatient (OUT) | payer MEDICARE, SELFPAY ==
--- NOTE | 2023-12-01 09:43 | CA_ITS ---
Patient Name: GLADYS SMYTH MR#: [id number] : 1940 Exam Date: 12/01/2023 Ordering Doctor: ISRA GAYLE CNP ECHOCARDIOGRAM REPORT PROCEDURE: CA ECHO DOPPLER COMPLETE INDICATIONS: CAD, hypertension, diabetes COMPARISON: None. DESCRIPTION: COMPLETE ECHOCARDIOGRAM Real-time transthoracic echocardiography with 2D, M-mode, spectral and color flow Doppler performed. QUALITY: Technical quality was good. 69 , 250#, BP 114/68 LEFT VENTRICLE: Normal chamber size. Thickened septal wall. LV EF: Global left ventricular systolic function is difficult to assess but appears preserved; visually estimated ejection fraction is 55 to 60%. Unable to assess regional wall motion abnormality; consider contrast study for better delineation of endocardial borders. DIASTOLIC: Normal diastolic function. ATRIAL SEPTUM: Inadequately seen. LEFT ATRIUM: Normal chamber size. RIGHT ATRIUM: Normal chamber size. RIGHT VENTRICLE: Normal chamber size. Normal right ventricular systolic function. TRICUSPID VALVE: Normal mobility and thickness. No stenosis with trivial regurgitation. No evidence of pulmonary hypertension. RVSP 27 mmHg MITRAL VALVE: Normal mobility and thickness. No evidence of mitral valve stenosis. There is no mitral annular calcification. Trivial mitral regurgitation. AORTIC VALVE: Normal trileaflet appearance. Normal leaflet mobility. No evidence of aortic valve stenosis. Multifocal calcifications. No aortic regurgitation. AORTIC ROOT: Normal diameter and appearance. Ascending aorta is normal in size. PULMONIC VALVE: Normal thickness and mobility. No stenosis. No regurgitation. PERICARDIUM: No evidence of pericardial effusion. IVC: Collapses with inspirations. IVC is normal in size. CONCLUSION: 1. Global left ventricular systolic function is difficult to assess but appears preserved; visually estimated ejection fraction is 55 to 60% 2. Normal right ventricular size and systolic function 3. Normal diastolic function 4. Valves are poorly seen; no significant valvular abnormalities Adult Echocardiography Procedure Report Left Ventricle LVEDD (3.7 - 5.6 cm): 4.83 cm LVESD (2.2 - 4.0 cm): 3.56 cm LVIVS thickness (0.6 - 1.2 cm): 1.39 cm LVPW thickness (0.5 - 1.0 cm): 1.13 cm e': 0.08 m/s E - e': 6.11 LVOT Max Gradient: 2.15 mm[Hg] LVOT Area (cm2): 0.73 m/s Peak Velocity (LVOT): 0.73 m/s Mean Velocity (LVOT): 0.50 m/s LVOT Diameter 1.98 cm Left Atrium LA Volume Index (2D A2C): 34.67 ml/m2 Left Atrium Systolic Dimension: 3.98 cm Mitral Valve MV E to A Ratio: 0.89 Mitral Valve A-Wave Peak Velocity: 0.54 m/s Mitral Valve E-Wave Peak Velocity: 0.48 m/s Right Ventricle Aorta AO Root Diam: 3.17 cm Ascending Ao Diam: 2.78 cm Aortic Valve AoV Area (Peak Thiago): 2.77 cm2, 2.77 cm2 AoV Area (VTI): 2.83 cm2, 2.83 cm2 Peak Velocity(Antegrade Flow): 0.82 m/s Peak Gradient(Antegrade Flow): 2.68 mm[Hg] Mean Velocity(Antegrade Flow): 0.53 m/s Mean Gradient(Antegrade Flow): 1.33 mm[Hg] Velocity Time Integral: 19.77 cm Tricuspid Valve Peak Velocity (Regurgitant Flow): 2.43 m/s Pulmonic Valve Peak Gradient: 3.64 mm[Hg], 4.15 mm[Hg] Right Atrium Right Atrium Systolic Pressure: 59.19 ml, 59.19 ml Dictated by: Ksenia Glasgow M.D. on 12/01/2023 at 15:40 Approved by: Ksenia Glasgow M.D. on 12/01/2023 at 15:45
== END 2023-12-01 09:30 | disposition home or self-care (01) ==
PROVIDERS: PCP Family Medicine; Visit Provider Nurse Practitioner Family
DX: I25.10 Atherosclerotic heart disease of native coronary artery without angina pectoris (principal)
CPT/HCPCS: 93306

== ENCOUNTER 2023-12-14 08:14 | Outpatient (OUT) | payer MEDICARE, SELFPAY ==
[2023-12-14 08:43] LABS: Hematocrit 41.9 % (42.0-54.0); Mean Corpuscular HGB Conc 33.4 g/dL (29.9-35.2); Mean Corpuscular Hemoglobin 33.7 pg (25.9-34.0); Mean Platelet Volume 11.2 fL (9.5-13.5); Platelet Count 168 10^3/uL (150-450); Red Blood Count 4.15 10^6/uL (4.70-6.10); Red Cell Distribution Width 12.9 % (11.0-15.0); White Blood Count 6.2 10^3/uL (4.0-11.0)
[2023-12-14 08:44] LABS: Bilirubin Urine NEGATIVE (NEGATIVE); Blood Urine NEGATIVE (NEGATIVE); Clarity Urine CLEAR (CLEAR); Color Urine YELLOW (YELLOW); Glucose Urine UA NEGATIVE (NEGATIVE); Ketones Urine NEGATIVE (NEGATIVE); Leukocyte Esterase Urine NEGATIVE (NEGATIVE); Nitrite Urine NEGATIVE (NEGATIVE); Protein Urine NEGATIVE (NEG/TRACE); Specific Gravity Urine 1.015 (1.005-1.025); Urobilinogen Urine 0.2 EU/dL (0.2-1.0); pH Urine 5.5 (5.0-9.0)
[2023-12-14 08:53] LABS: Bacteria Urine NONE SEEN #/HPF (NONE SEEN); Cast Seen? NONE SEEN #/LPF (NONE SEEN); Crystals Seen? None Seen #/HPF (None Seen); Mucus Urine NONE SEEN (NONE SEEN); RBC Urine NONE SEEN #/HPF (0-2); Squamous Epithelial Cell Urine RARE #/LPF (NONE/RARE); WBC Urine NONE SEEN #/HPF (NONE SEEN)
[2023-12-14 09:14] LABS: Albumin Level 3.3 g/dL (3.4-5.0); Anion Gap 14.6; BUN Creatinine Ratio 11.4; Calcium 8.5 mg/dL (8.5-10.1); Chloride 106 mmol/L (98-107); Estimated GFR (African America 43 (>=60); Estimated GFR (Non-African Ame 35 (>=60); Glucose 155 mg/dL (74-106); Magnesium 1.7 mg/dL (1.8-2.4); Phosphorus 3.5 mg/dL (2.6-4.7); Potassium 4.6 mmol/L (3.5-5.1); Sodium 140 mmol/L (136-145); Uric Acid 6.4 mg/dL (3.5-7.2)
[2023-12-14 09:21] LABS: Creatinine Urine Random 71.05 mg/dL (20.00-300.00); Protein Creatinine Ratio Urine 0.15; Total Protein Urine Random 10.9 mg/dL (<=11.9)
[2023-12-14 10:12] LABS: Percent Iron Saturation 36.2 %
[2023-12-15 11:13] LABS: PTH, Intact 50 pg/mL (15-65)
== END 2023-12-14 08:15 | disposition home or self-care (01) ==
LOC: LAB 08:16
PROVIDERS: PCP Family Medicine; Visit Provider Internal Medicine
DX: E11.22 Type 2 diabetes mellitus with diabetic chronic kidney disease (principal); N18.30 Chronic kidney disease, stage 3 unspecified; I12.9 Hypertensive chronic kidney disease with stage 1 through stage 4 chronic kidney disease, or unspecified chronic kidney disease; N25.81 Secondary hyperparathyroidism of renal origin; N20.0 Calculus of kidney; D63.1 Anemia in chronic kidney disease
CPT/HCPCS: 36415; 80069; 81001; 82306; 82570; 82728; 83540; 83550; 83735; 83970; 84156; 84550; 85027

== ENCOUNTER 2024-03-28 11:16 | Outpatient (OUT) | payer MEDICARE, SELFPAY ==
[2024-03-28 11:48] LABS: Basophils Percent Auto 0.5 % (0.2-2.0); Eosinophils Absolute Auto 0.2 10^3/uL (0.0-0.7); Eosinophils Percent Auto 3.2 % (0.9-7.0); Hematocrit 40.2 % (42.0-54.0); Hemoglobin 13.3 g/dL (14.0-18.0); Immature Granulocytes Abs Auto 0.04 10^3/uL (0.00-0.03); Immature Granulocytes Pct Auto 0.6 % (0.0-0.5); Lymphocytes Percent Auto 16.2 % (20.5-60.0); Mean Corpuscular HGB Conc 33.1 g/dL (29.9-35.2); Mean Corpuscular Hemoglobin 33.8 pg (25.9-34.0); Mean Platelet Volume 10.6 fL (9.5-13.5); Monocytes Absolute Auto 0.5 10^3/uL (0.3-0.8); Monocytes Percent Auto 8.1 % (1.7-12.0); Neutrophils Absolute Auto 4.5 10^3/uL (1.4-6.5); Neutrophils Percent Auto 71.4 % (43.0-75.0); Platelet Count 168 10^3/uL (150-450); Red Blood Count 3.94 10^6/uL (4.70-6.10); White Blood Count 6.3 10^3/uL (4.0-11.0)
[2024-03-28 11:51] LABS: Estimated Average Glucose 151 mg/dL; Glycohemoglobin A1C 6.9 % (4.5-6.2)
[2024-03-28 13:16] LABS: Free T4 1.12 ng/dL (0.76-1.46)
[2024-03-28 13:17] LABS: Alanine Aminotransferase 30 U/L (16-63); Albumin Level 3.3 g/dL (3.4-5.0); Alkaline Phosphatase 78 U/L (46-116); Anion Gap 12.8; Aspartate Amino Transferase 20 U/L (15-37); Bilirubin Total 0.6 mg/dL (0.2-1.0); Calcium 9.2 mg/dL (8.5-10.1); Chloride 105 mmol/L (98-107); Chol HDL Ratio 2.5; Cholesterol 104 mg/dL (<=200); Estimated GFR (African America 46 (>=60 mL/min/1.73m^2); Estimated GFR (Non-African Ame 38 (>=60 mL/min/1.73m^2); Free T3 2.43 pg/mL (2.18-3.98); Globulin 3.3 g/dL; Glucose 116 mg/dL (74-106); HDL Cholesterol 42 mg/dL (40-60); Potassium 4.8 mmol/L (3.5-5.1); Sodium 138 mmol/L (136-145); Thyroid Stimulating Hormone 0.837 uIU/mL (0.358-3.740); Total Protein 6.6 g/dL (6.4-8.2); Triglycerides 85 mg/dL (<=150)
[2024-03-29 04:12] LABS: PSA, Free 0.99 ng/mL; Prostate Specific Ag 6.2 ng/mL (0.0-4.0)
== END 2024-03-28 11:17 | disposition home or self-care (01) ==
LOC: LAB 11:17
PROVIDERS: PCP Family Medicine; Visit Provider Family Medicine
DX: Z00.00 Encounter for general adult medical examination without abnormal findings (principal); E78.5 Hyperlipidemia, unspecified; E03.9 Hypothyroidism, unspecified; Z12.12 Encounter for screening for malignant neoplasm of rectum; I10 Essential (primary) hypertension; Z12.5 Encounter for screening for malignant neoplasm of prostate; R73.09 Other abnormal glucose; R53.83 Other fatigue
CPT/HCPCS: 36415; 80053; 80061; 83036; 84153; 84154; 84439; 84443; 84481; 85025

== ENCOUNTER 2024-03-29 13:25 | Outpatient (REF) | payer MEDICARE, SELFPAY ==
[2024-03-29 14:06] LABS: Occult Blood Positive
[2024-03-29 14:07] LABS: Internal Control Within Normal Limits
== END 2024-03-29 13:26 | disposition home or self-care (01) ==
LOC: LAB 13:25
PROVIDERS: PCP Family Medicine; Visit Provider Family Medicine
DX: Z12.12 Encounter for screening for malignant neoplasm of rectum (principal)
CPT/HCPCS: G0328

== ENCOUNTER 2024-05-30 06:43 | Outpatient (OUT) | payer MEDICARE, SELFPAY ==
--- OUTSIDE RECORDS SUMMARY | 2024-05-30 06:48 | XMS_ITS | CCD ---
Author Organization [facility] Inform ion Partnership [facility] Care Team Providers Care Soaking Room Operator Name Role Phone Tray Alfaro Primary [...] Other Provider MD Skinny Kiser Other Provider [facility] Jen Desir Other Provider MD Aaliyah Mitchell Other Provider MD Alicia Perea Other Provider MD Milton Braun Other Provider [phone] MD Ni Olivares Other Provider MD Yogesh Omalley Other Provider MD Kiran Eldridge Jr Other Provider MD Fátima Ivey Other Provider MD Jennifer Villarreal Other Provider MD Bipin Barclay Other Provider BRIT, ALCIIA Consulting Unavailable BRIT, ALICIA Attending Unavailable BRIT, ALICIA Admitting Unavailable HOY ., DR FELIZ Primary Care Unavailable HOY ., DR FELIZ Primary Care Unavailable HOY ., DR FELIZ Admitting Unavailable HOY ., DR FELIZ Attending Unavailable COOK, DR NI aGrcia Consulting Unavailable COOK, DR NI Garcia Attending [...] THADDEUS Consulting Unavailable YOGESH BYERS Consulting Unavailable ILA [...] FELIZ Admcrescencio Unavailable ISRA GAYLE Consulting Unavailable IRWIN, ISRA Attending Unavailable HOY [...] FELIZ Attending Unavailable HOY ., DR FELIZ Admcrescencio Unavailable HOY ., DR FELIZ Primary Care Unavailable COOK, DR NI Garcia Attending Unavailable COOK, DR NI Garcia Admitting Unavailable HOY ., DR FELIZ Consulting Unavailable COOK, DR NI Garcia Consulting Unavailable ZIEBER, DR TESS Brewer Consulting Unavailable HOY ., DR FELIZ Primary Care Unavailable HOY ., DR FELIZ Attending Unavailable HOY ., DR FELIZ Admcrescencio Unavailable HOY ., DR FELIZ Consulting Unavailable HOY ., DR FELIZ Primary Care Unavailable HOY ., DR FELIZ Admitting Unavailable HOY ., DR FELIZ Attending Unavailable MD Tray Alfaro Primary Care Provider [phone] MD Ni Olivares Attending Provider Ni OLIVARES P Referring Unavailable COOK, Ni P Admitting Unavailable COOK, Ni P Attending Unavailable MD ALICIA PEREA Admitting Unavailable [...] Referring Unavailable COOK, Ni P Admitting Unavailable MD Tray Alfaro Primary Care Provider [phone] NON STAFF Attending Provider Unavailable JENNIFER DRISCOLL Attending Unavailable JENNIFER DRISCOLL Attending Unavailable Ni Olivares Admitting Unavailable Tray Alfaro Primary Care Unavailable Ni Olivares Attending Unavailable Tray Alfaro Primary Care Unavailable Ni Olivares Attending Unavailable Ni Olivares Admitting Unavailable Tray Alfaro Primary Care Unavailable Ni Olivares Attending Unavailable Ni Olivares Admitting Unavailable NON STAFF Attending Unavailable NON STAFF Admitting Unavailable Tray Alfaro Primary Care Unavailable JENNIFER LEYVA Attending Unavailable ISRA GAYLE Attending Unavailable ISRA GAYLE Attending Unavailable Allergies Allergy Classification Reported Allergen(s) Allergy Type Date of Onset Reaction(s) Facility (14 sources) Ciprofloxacin; Translations: [ciprofloxacin] Drug Allergy 08-13-19 Eruption of skin (disorder) [facility] (13 sources) Penicillin; Translations: [penicillin] Drug Allergy Eruption of skin (disorder) [facility] [employer] [facility] Other (6 sources) Ciprofloxacin Drug Allergy Unknown [facility] [employer] [facility] [facility] Other (9 sources) Penicillins; Translations: [Penicillins] Allergy to substance 06-14-20 [facility] (1 source) Ciprofloxacin Drug Allergy 03-10-20 [facility] (3 sources) levothyroxine; Translations: [levothyroxine] Drug Allergy Swelling of oral cavity structure (finding) [facility] (3 sources) liothyronine; Translations: [liothyronine] Drug Allergy Swelling of oral cavity structure (finding) [facility] (1 source) No Known Medication Allergies; Translations: [No Known Medication Allergies] Propensity to adverse reactions (disorder) [facility] Repository (1 source) Ciprofloxacin Drug Allergy 06-14-20 [facility] Repository Medications Current Medications Medication Drug Class(es) Dates Sig (Normalized) Sig (Original) acetaminophen 325 mg / HYDROcodone bitartrate 5 mg oral tablet (1 source) Opioid Agonist Start: 10-07-2022 End: 10-09-2022 acetaminophen-hyd rocodone 325 mg-5 mg oral tablet 1 tab(s), Oral, q4hr Pain for 2 day(s), 7 tab(s), Refill(s) 0, [id number], 175, cm, 09/15/22 5:20:00 EDT, Height/Length Dosing, 114, kg, 09/15/22 5:20:00 EDT, Weight Dosing Start Date: 10/07/22 Stop Date: 10/09/22 Status: Ordered [id number] 200 actuat albuterol 0.09 mg/actuat metered dose inhaler (13 sources) beta2-Adrenergic Agonist Start: 12-20-2023 take 1 puff(s) by inhalation every four hours Albuterol Sulfate (Ventolin Hfa) 90 mcg/actuation HFA aerosol inhaler Active 1 PUFF INHALATION Every 4 hours December 20, 2023 12:00am Start: 02-23-2021 take 2 puff(s) by in halation every four hours Ventolin Diskus 2 puff(s), [...] hrs Active amLODIPine 10 mg oral tablet (18 sources) Dihydropyridine Calcium Channel [place] Start: 02-23-2021 take 5 mg by mouth once daily amLODIPine 10 mg Tab 5 mg = 0.5 tab(s), Oral, Daily, Refills(s) 0, High blood pressure Start Date: 02/23/21 Status: Ordered Start: 06-15-2019 End: 12-20-2023 take 10 mg by mouth once daily Amlodipine Discontinued 10 MG PO Daily June 15, 2019 1:00am December 20, 2023 11:50am aspirin 81 mg oral tablet (16 sources) Platelet Aggregation Inhibitor, Nonsteroidal Anti-inflammatory Drug Start: 04-10-2019 take 81 mg by mouth once daily Aspirin Active 81 MG PO Daily June 15, 2019 1:00am take 1 tablet by delmer th every twenty-four hours Aspirin 81 81 MG 1 tablet Orally Once a day Active take 1 tablet by mouth once andrew y Aspirin 81 81 MG 1 tablet Orally Once a day Active atorvastatin 80 mg oral tablet (19 sources) HMG-CoA Reductase Inhibitor Start: 12-20-2023 take 80 mg by mouth once daily Atorvastatin Active 80 MG PO Daily December 20, 2023 12:00am Start: 06-15-2019 End: 12-20-2023 take 40 mg by mouth at bedtime Atorvastatin Discontinu ed 40 MG PO Bedtime June 15, 2019 1:00am December 20, 2023 11:50am Start: 04-10-2019 take 1 tablet by delmer th once daily atorvastatin 80 mg Tab 80 mg = 1 tab(s), Oral, Daily, High cholesterol Start Date: 04/10/19 Status: Ordered cholecalciferol 0.125 mg oral capsule (14 sources) Vitamin D Start: 12-20-2023 take 5000 [IU] by mouth once daily Cholecalciferol (Vitamin D3) Active 5000 UNIT PO Daily December 20, 2023 12:00am Start: 06-15-2019 End: 12-20-2023 take 5000 [IU] by mouth once daily Cholecalciferol (Vitamin D3) Discontinued 5000 UNIT PO Daily June 15, 2019 1:00am December 20, 2023 11:59am Start: 04-10-2019 take 1 tablet by delmer [...] Status: Ordered take 1 capsule by mo ut every twenty-four hours Vitamin D3 125 MCG [...] need ed Orally Twice a day Active doxycycline hyclate 100 mg oral capsule (7 sources) Tetracycline-class Drug Start: 12-07-2022 doxycy foss hyclate 100 mg Cap See Instructions, Take 1 cap the day before your procedure and 1 cap the day of your procedure - afterwards, # 2 cap(s), Refills(s) 0, Pharmacy: [facility] #[id number], 177, cm, 11/18/22 13:54:00 EDT, Height/Length Dosing, 114.7, kg, 11/18/22 13:54:00 EDT, W... Start Date: 12/07/22 Status: Ordered Start: 07-05-2019 End: 08-15-2022 take 100 mg by mouth twice daily Doxycycline Hyclate Discontinued 100 MG PO Twice daily 14 July 05, 2019 1:00am August 15, 2022 2:41pm glimepiride 2 mg oral tablet (20 sources) Sulfonylurea Start: 12-20-2023 take 2 mg by mouth once daily at breakfast Glimepiride Active 2 MG PO Every morning December 20, 2023 12:00am administer with breakfast Start: 09-14-2022 take 1 tablet by delmer th twice daily glimepiride 4 mg Tab 4 mg = 1 tab(s), Oral, BID, Refills(s) 0, Blood glucose Start Date: 09/14/22 Status: Ordered Start: 09-14-2022 take 1 tablet by delmer th at bedtime glimepiride 4 mg Tab 4 mg = 1 tab(s), Oral, Bedtime, Refills(s) 0, Blood glucose Start Date: 09/14/22 Status: Ordered Start: 06-18-2019 End: 12-20-2023 take 1 mg by mouth once daily Glimepiride Discontinued 1 MG PO Daily 0 June 18, 2019 1:10pm December 20, 2023 11:51am Start: 06-15-2019 End: 06-18-2019 take 2 mg by mouth once daily Glimepiride Discontinued 2 MG PO Daily June 15, 2019 1:00am June 18, 2019 1:11pm Start: 04-10-2019 take 2 mg by mouth once daily Amaryl 4 mg Tab 2 mg = 0.5 tab(s), Oral, Daily Start Date: 04/10/19 Status: Ordered Hgai-Intqq-Opx-D3-Hyal-Wiley B or (1 source) Start: 12-20-2023 take 1 tablet by mouth twice daily Ggyp-Pjfru-Kej-D3-Hyal-Wiley Bor Active 1 TAB PO Twice daily December 20, 2023 12:00am glucosamine sulfate 500 mg oral capsule (6 [...] Compl ex - (6 sources) Glucosamine Emmanuel 500 Complex - as directed Orally TWICE A DAY Active Glucosamine Emmanuel dr 500 Complex - as directed Orally TWICE A DAY Not-Taking Glucosamine Emmanuel dr 500 Complex - as directed Orally Active 24 hr isosorbide mononitrate 120 mg extended release oral tablet (11 sources) Nitrate Vasodilator Start: 12-20-2023 take 120 mg by mouth once daily Isosorbide Mononitrate Active 120 MG PO Daily December 20, 2023 12:00am Start: 09-14-2022 isosorbide mon onitrate 60 mg ER Tab 120 mg = [...] the morning Orally Once a day Active ketoconazole 20 mg/ml topical cream (9 sources) Azole Antifungal Start: 12-20-2023 Ketoconazole Active 1 APPLIC TOPICAL Twice daily December 20, 2023 12:00am Start: 11-19-2022 ketoconazole T opical, BID, Refills(s) 0 Start Date: 11/19/22 Status: Ordered Ketoconazole 2 % 1 application Externally Twice a day Active Ketoconazole 2 % 1 application Externally Twice a day Active levothyroxine sodium 0.05 mg oral tablet (13 sources) l-Thyroxine Start: 12-20-2023 take 50 ug by mouth once daily Levothyroxine Active 50 MCG PO Daily December 20, 2023 12:00am Start: 03-24-2020 take 1 tablet by delmer th once daily levothyroxine 50 mcg (0.05 mg) Tab 50 mcg = 1 tab(s), Oral, Daily, Refills(s) 0, Thyroid Start Date: 03/24/20 Status: Ordered take 1 tablet by delmer th once daily in the morning Levothyroxine Sodium 50 MCG 1 tablet in the morning on an empty stomach Orally Once a day Active liothyronine sodium 0.005 mg oral tablet (6 sources) l-Triiodothyronine Start: 12-20-2023 take 5 ug by mouth once daily Liothyronine Active 5 MCG PO Daily December 20, 2023 12:00am Start: 09-14-2022 take 1 tablet by delmer th once daily liothyronine 5 mcg Tab 5 mcg = 1 tab(s), Oral, Daily, Refills(s) 0, Thyroid Start Date: 09/14/22 Status: Ordered take 1 tablet by delmer th every twenty-four hours Liothyronine Sodium 5 MCG 1 tablet on an empty stomach Orally Once a day Active lisinopril 20 mg oral tablet (19 sources) Angiotensin Converting Enzyme Inhibitor Start: 12-20-2023 take 20 mg by mouth once daily Lisinopril Active 20 MG PO Daily December 20, 2023 12:00am Start: 02-23-2021 take 2 tablets by mo uth once daily lisinopril 10 mg Tab 20 [...] 60 MG PO Daily June 15, 2019 1:00am June 18, 2019 1:11pm take 1 tablet by delmer th every [...] Magnesium 400 MG as directed Orally Not-Taking magnesium oxide 400 mg oral tablet (1 source) Start: 12-20-2023 take 400 mg by mouth once daily Magnesium Oxide Active 400 MG PO Daily December 20, 2023 12:00am 24 hr metoprolol succinate 50 mg extended release oral tablet (18 sources) beta-Adrenergic [place] Start: 03-24-2020 take 1 [...] MG PO Twice daily June 15, 2019 1:00am nitroglycerin 0.4 mg sublingual tablet (16 sources) Nitrate Vasodilator Start: 12-20-2023 Nitroglyce rin Active 0.4 MG SUBLINGUAL every 5 to 15 minutes December 20, 2023 12:00am Start: 11-18-2022 nitroglycerin 0.4 mg, SubLingual, q5min, PRN Chest pain Start Date: 11/18/22 Status: Ordered Start: 06-15-2019 End: 12-20-2023 Nitroglycerin Discontinued 0 .3 MG SUBLINGUAL every 5 to 15 minutes June 15, 2019 1:00am December 20, 2023 11:54am Nitroglycerin 0. 4 MG as directed Sublingual Active Nitroglycerin 0. 3 MG as directed Sublingual Active pioglitazone 15 mg oral tablet (7 sources) Peroxisome Proliferator Receptor alpha Agonist, Peroxisome Proliferator Receptor gamma Agonist, Thiazolidinedione Start: 12-20-2023 take 15 mg by mouth once daily Pioglitazone Active 15 MG PO Daily December 20, 2023 12:00am Start: 09-14-2022 take 1 tablet by delmer th once daily pioglitazone 15 mg Tab 15 mg = 1 tab(s), Oral, Daily, Refills(s) 0, Blood glucose Start Date: 09/14/22 Status: Ordered 12 hr ranolazine 500 mg extended release oral tablet (5 sources) Anti-anginal Start: 12-20-2023 take 500 mg by mouth twice daily Ranolazine Active 500 MG PO Twice daily December 20, 2023 12:00am Start: 11-18-2022 take 1 tablet by delmer th once daily ranolazine 500 mg oral ER Tab 500 mg = 1 tab(s), Oral, Daily Start Date: 11/18/22 Status: Ordered take 1 tablet by delmer th every twelve hours Ranolazine ER 500 MG 1 tablet Orally Twice a day Active sildenafil 100 mg oral tablet (5 sources) Phosphodiesterase 5 Inhibitor Start: 08-18-2020 Viagra 100 mg Tab 100 mg = 1 tab(s), Oral, As Directed, 1 hour before sexual activity, # 30 tab(s), Refills(s) 2, Pharmacy: [facility]58, 174, cm, 08/18/20 12:16:00 EST, Height/Length Dosing, 111, kg, 08/18/20 12:16:00 EST, Weight Dosing Start Date: 08/18/20 Status: Ordered Spiriva Respimat 1.25 mcg/inh inhalation aerosol (1 [...] Date: 04/11/19 Status: Ordered 60 actuat tiotropium 0.0025 mg/actuat inhalation spray (12 sources) Anticholinergic Start: 12-20-2023 take 1 puff(s) by inhalation once daily Tiotropium [place] (Spiriva Respimat) 2.5 mcg/actuation mist Active 2 PUFF INHALATION Daily December 20, 2023 12:00am Start: 02-23-2021 Spiriva Respim at 1.25 mcg/inh inhalation aerosol 2 puff(s), Inhalation, [...] 2 puffs Inhalation Once a day Active triamcinolone acetonide 5 mg/ml topical cream (5 sources) Corticosteroid Start: 12-20-2023 Triamcinolone Acetonide Active 1 APPLIC TOPICAL Twice a Week December 20, 2023 12:00am Start: 11-19-2022 triamcinolone acetonide Topical, BID, PRN Itching, Refills(s) 0 Start Date: 11/19/22 Status: Ordered Triamcinolone Ac etonide 0.5 % 1 application Externally Two times a Week Active Triamcinolone Ac etonide 0.5 % 1 application Externally Two times a Week Active Vitamin B Complex (7 sources) Start: 12-20-2023 take 1 capsule by mouth once daily Vitamin B Complex Active 1 CAP PO Daily December 20, 2023 12:00am administer with a meal Vitamin B Comple x - as directed [...] / codeine phosphate 30 mg oral tablet (6 sources) Opioid Agonist Start: 06-15-2019 End: 07-05-2019 take 1 tablet by mouth every six hours Acetaminophen-Cod eine (Tylenol-Codeine #3) 300-30 mg Tablet Discontinued 300 MG PO Q6H June 15, 2019 1:00am July 05, 2019 10:12am dicyclomine hydrochloride 10 mg oral capsule (6 sources) Anticholinergic Start: 06-18-2019 End: 12-20-2023 take 10 mg by mouth three times daily for muscle spasms Dicyclomine Discontinued 10 MG PO Three times daily June 18, 2019 1:09pm December 20, 2023 11:59am for bladder spasms metFORMIN hydrochloride 1000 mg oral tablet (6 sources) Biguanide Start: 06-15-2019 End: 06-18-2019 take 1000 mg by mouth twice daily Metformin Discontinued 1000 MG PO Twice daily June 15, 2019 1:00am June 18, 2019 1:11pm SITagliptin 100 mg oral tablet (20 sources) Dipeptidyl Peptidase 4 Inhibitor Start: 12-20-2023 End: 12-20-2023 take 100 mg by mouth once daily Sitagliptin Phosphate Discontinued 100 MG PO Daily December 20, 2023 11:52am December 20, 2023 12:02pm Start: 06-18-2019 End: 12-20-2023 take 50 mg by mouth once daily Sitagliptin Phosphate Discontinued 50 MG PO Daily 0 June 18, 2019 1:10pm December 20, 2023 12:02pm Start: 04-10-2019 End: 06-18-2019 take 1 tablet by mouth once daily Sitagliptin Phosphate (Januvia) 100 mg tablet Discontinued 100 MG PO Daily June 15, 2019 1:00am June 18, 2019 1:11pm SITagliptin Phos phate 50 MG as directed Orally Active ticagrelor 90 mg oral tablet (6 sources) Start: 06-15-2019 End: 07-05-2019 take 90 mg by mouth twice daily Ticagrelor Discontinued 90 MG PO Twice daily June 15, 2019 1:00am July 05, 2019 10:12am Problems Active Problems Problem Classification Problem Date Documented Date Episodic/Chronic Abdominal pain (6 sources) Flank pain 02-23-2021 Episodic Acute and unspecified renal failure (6 sources) Renal failure syndrome; Translations: [Unspecified kidney failure] 08-11-2022 Chronic Acute and unspecified renal failure (20 sources) Acute renal failure syndrome; Translations: [Injury of kidney] Onset: 3 08-18-2020 Episodic Acute myocardial infarction (6 sources) Myocardial infarction 04-10-2019 Chronic Cancer of prostate (8 sources) Malignant tumor of prostate; Translations: [Malignant neoplasm of prostate] Onset: 3 07-18-2019 Chronic Chronic kidney disease (20 sources) Chronic kidney disease; Translations: [Chronic kidney disease, unspecified] 08-11-2022 Chronic Chronic kidney disease (13 sources) Chronic kidney disease; Translations: [Chronic kidney disease, stage III (moderate)] Onset: 1 Resolved: 2 Chronic obstructive pulmonary disease and bronchiectasis (8 sources) Chronic obstructive lung disease; Translations: [Chronic obstructive pulmonary disease, unspecified] Onset: 3 09-14-2022 Chronic Coronary atherosclerosis and other heart disease (20 sources) Coronary arteriosclerosis; Translations: [Atherosclerotic heart disease of [place] coronary artery without angina pectoris] Onset: 3 04-10-2019 Chronic Coronary atherosclerosis and other heart disease (8 sources) Patient post percutaneous transluminal coronary angioplasty; Translations: [Coronary angioplasty status] Onset: 4 Episodic Deficiency and other anemia (6 sources) Anemia of renal disease; Translations: [Anemia in chronic kidney disease] Chronic Deficiency and other anemia (2 sources) Anemia in chronic kidney disease Chronic Diabetes mellitus with complications (20 sources) Diabetes mellitus; Translations: [Type 2 diabetes mellitus with other circulatory complications] Onset: 1 Resolved: 2 Chronic Diabetes mellitus without complication (19 sources) Type 2 diabetes mellitus; Translations: [Diabetes mellitus] 04-10-2019 Chronic Diabetes mellitus without complication (1 source) Other abnormal glucose; Translations: [OTHER ABNORMAL GLUCOSE] Onset: 3 Episodic Disorders of lipid metabolism (14 sources) Hyperlipidemia; Translations: [Hyperlipidemia, unspecified] Onset: 3 04-10-2019 Chronic Essential hypertension (19 sources) Hypertensive disorder; Translations: [Essential (primary) hypertension] Onset: 3 04-10-2019 Chronic Fluid and electrolyte disorders (16 sources) Metabolic acidosis; Translations: [Metabolic acidosis] Onset: 3 08-11-2022 Episodic Genitourinary symptoms and ill-defined conditions (20 sources) Nocturia; Translations: [Nocturia] Onset: 2 Episodic [...] Resolved: 2 Chronic Nephritis; nephrosis; renal sclerosis (8 sources) Atrophy of left kidney; 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)] 06-15-2019 Chronic Noninfectious gastroenteritis (6 sources) Postprandial diarrhea 04-17-2019 Episodic Other and unspecified benign neoplasm (6 sources) Hyperplastic polyp of large intestine 04-10-2019 Episodic Other connective tissue disease (4 sources) Pain in right leg; Translations: [PAIN IN RIGHT LEG] Onset: 3 Episodic Other diseases of kidney and ureters (7 sources) Secondary hyperparathyroidism; Translations: [Secondary hyperparathyroidism of renal origin] 12-20-2023 Chronic Other diseases of kidney and ureters (8 sources) Secondary hyperparathyroidism of renal origin; Translations: [Secondary hyperparathyroidism (of renal origin)] Onset: 1 Resolved: 2 Chronic Other diseases of kidney and ureters (8 sources) Urinary tract obstruction; Translations: [Other obstructive and reflux uropathy] Onset: 2 Episodic Other diseases of kidney and ureters (13 sources) Hydronephrosis; Translations: [Unspecified hydronephrosis] 08-08-2019 Episodic Other diseases of kidney and ureters (6 sources) Hydronephrosis due to ureteral obstruction 07-18-2019 Episodic Other diseases of kidney and ureters (6 sources) Acute renal insufficiency; Translations: [Disorder of kidney and ureter, unspecified] 06-28-2019 Episodic Other diseases of kidney and ureters (6 sources) Occlusion of ureter; Translations: [Crossing vessel and stricture of ureter without hydronephrosis] 06-15-2019 Episodic Other diseases of kidney and ureters (6 sources) Obstructive nephropathy; Translations: [Other obstructive and reflux uropathy] 08-11-2022 Episodic Other diseases of kidney and ureters (1 source) Disorder of kidney and ureter, unspecified; Translations: [Unspecified disorder of kidney and ureter] 08-15-2022 Episodic Other diseases of kidney and ureters (6 sources) Hydronephrosis with renal and ureteral calculous obstruction; Translations: [Calculus of ureter] 08-15-2022 Episodic Other diseases of kidney and ureters (1 source) Other obstructive and reflux uropathy; Translations: [Other specified disorders of kidney and ureter] 08-15-2022 Episodic Other gastrointestinal disorders (6 sources) Occult blood in stools 04-17-2019 Episodic Other lower respiratory disease (6 sources) Nodule of lung; Translations: [Solitary pulmonary nodule] 08-15-2022 Episodic Other lower respiratory disease (1 source) Other forms of dyspnea; Translations: [OTHER FORMS OF DYSPNEA] Onset: 3 Episodic Other male genital disorders [...] disorders (4 sources) H/O: hypothyroidism 09-14-2022 Episodic Other screening for suspected conditions (not mental disorders or infectious disease) (20 sources) Raised prostate specific antigen; Translations: [Elevated prostate specific antigen [PSA]] Onset: 3 06-21-2019 Episodic Rheumatoid arthritis and related disease (6 [...] with lower urinary tract symptoms] Onset: 4 Urinary tract infections (12 sources) Pyelonephritis; Translations: [Tubulo-interstitial nephritis, not specified as acute or chronic] 06-15-2019 Episodic Past or Other Problems Problem Classification Problem Date Documented Da te Episodic/Chronic Calculus of urinary tract (20 sources) Kidney stone; Translations: [Calculus of kidney] Onset: 05-26-2021 Resolved: 11-24-2021 Episodic Malaise and fatigue (1 source) Other fatigue; Translations: [OTHER FATIGUE] Onset: 08-25-2022 Episodic Other aftercare (1 source) termination clerk (current) use of aspirin; Translations: [CORRECTION CURRENT USE OF ASPIRIN] Onset: 08-13-2022 Episodic Other aftercare (1 source) Other middle or intermediate school principal (current) drug therapy; Translations: [OTH CORRECTION CURRENT DRUG THERAPY] Onset: 08-13-2022 Episodic Other circulatory disease (2 sources) Other hypotension; Translations: [Other hypotension] Onset: 08-23-2023 Episodic Other connective tissue disease (4 sources) Impingement syndrome of unspecified shoulder; Translations: [IMPINGEMENT SYNDROME UNS SHOULDER] Onset: 07-08-2022 Episodic Other lower respiratory disease (4 sources) Shortness of breath; Translations: [SHORTNESS OF BREATH] Onset: 08-11-2022 Episodic Other non-traumatic joint disorders (1 source) Pain in right shoulder; Translations: [PAIN IN RIGHT SHOULDER] Onset: 07-09-2022 Episodic Other non-traumatic joint disorders (4 sources) Pain in left knee; Translations: [PAIN IN LEFT KNEE] Onset: 02-03-2022 Episodic Unclassified (1 source) CHRN KIDNEY DISEASE STG 3 UNSP; Translations: [CHRN KIDNEY DISEASE STG 3 UNSP] Onset: 08-18-2022 Results Test Name Value Interpretation Reference Range Facility Office Visiton 05-21-2024 Follow-up visit [id number] Ruben Smyth 1940 M Date Provider Department Center 05/21/2024 JENNIFER SMITH [facility] Family History Problem Relation Age of Onset No Known Problems Mother No Known Problems Father Family Status - Relation Status Age at Mother Father Level of Service:[id number] [place] OFFICE/OUTPATIENT ESTABLISHED LOW MDM 20 MIN Normal [facility] Erythrocyte distribution wid th Auto (RBC) [Ratio]on 12-14-2023 Erythrocyte distribution width (RBC) [Ratio] 12.9 % 11.0-15.0 [facility] Estimated glomerular filtrat ion rate (GFR) non- Americanon 12-14-2023 GFR/1.73 sq M.predicted among non-blacks MDRD (S/P/Bld) [Vol rate/Area] 35 mL/min/{1.73_m2} >=60 [facility] Hematocrit Auto (Bld) [Volum e fraction]on 12-14-2023 Hematocrit (Bld) [Volume fraction] 41.9 % 42.0-54.0 [facility] Hemoglobin [Mass/volume] in Bloodon 12-14-2023 Hemoglobin (Bld) [Mass/Vol] 14.0 g/dL 14.0-18.0 [facility] Iron binding capacity [Mass/ volume] in Serum or Plasmaon 12-14-2023 Iron binding capacity [Mass/Vol] 279.0 ug/dL 250.0-450. 0 [facility] Iron saturation [Mass Fracti on] in Serum or Plasmaon 12-14-2023 Iron saturation [Mass fraction] 36.2 % [facility] Laboratory - Chemistry and C hemistry - challengeon 12-14-2023 Albumin [Mass/Vol] 3.3 g/dL 3.4-5.0 [facility] Calcium [Mass/Vol] 8.5 mg/dL 8.5-10.1 [facility] Chloride [Moles/Vol] 106 mmol/L 98-107 [place] CO2 [Moles/Vol] 24.0 mmol/L 21.0-32.0 [facility] Creatinine [Mass/Vol] 1.84 mg/dL 0.70-1.30 [facility] Ferritin [Mass/Vol] 111.0 ng/mL 26.0-388.0 [place] GFR/1.73 sq M.predicted MDRD (S/P/Bld) [Vol rate/Area] 43 mL/min/{1.73_m2} >=60 [facility] Glucose [Mass/Vol] 155 mg/dL 74-106 [facility] Iron [Mass/Vol] 101.0 ug/dL 65.0-175.0 [facility] Magnesium [Mass/Vol] 1.7 mg/dL 1.8-2.4 [place] Potassium [Moles/Vol] 4.6 mmol/L 3.5-5.1 [facility] Sodium [Moles/Vol] 140 mmol/L 136-145 [facility] Urate [Mass/Vol] 6.4 mg/dL 3.5-7.2 [facility] Urea nitrogen [Mass/Vol] 21.0 mg/dL 7.0-18.0 [facility] Urea nitrogen/Creatinine [Mass ratio] 11.4 mg/mg [facility] Bilirubin Ql (U) Negative NEGATIVE [facility] Glucose (U) [Mass/Vol] Negative NEGATIVE [facility] Ketones Ql (U) Negative NEGATIVE [facility] pH (U) 5.5 [pH] 5.0-9.0 [facility] Specific gravity (U) [Rel density] 1.015 1.005-1.02 5 [facility] Urobilinogen Qn (U) 0.2 {Wil'U}/dL 0.2-1.0 [facility] Laboratory - Specimen inform ationon 12-14-2023 Appearance (U) CLEAR CLEAR [facility] Color (U) YELLOW YELLOW [facility] Laboratory - Urinalysison Leukocyte esterase Test strip Ql (U) Negative NEGATIVE [facility] Mucus Ql (Urine sed) NONE SEEN NONE SEEN [place] Nitrite Ql (U) Negative NEGATIVE [facility] Protein (U) [Mass/Vol] 10.9 mg/dL <=11.9 [facility] Protein Ql (U) Negative NEG/TRACE [facility] Leukocytes [#/volume] correc ike for nucleated erythrocytes in Blood by Automated counon 12-14-2023 WBC corrected for nucl RBC Auto (Bld) [#/Vol] 6.2 10 3/uL 4.0-11.0 [facility] MCH Auto (RBC) [Entitic mass ]on 12-14-2023 MCH (RBC) [Entitic mass] 33.7 pg 25.9-34.0 [facility] MCHC Auto (RBC) [Mass/Vol]on 12-14-2023 MCHC (RBC) [Mass/Vol] 33.4 g/dL 29.9-35.2 [facility] MCV Auto (RBC) [Entitic vol] on 12-14-2023 MCV (RBC) [Entitic vol] 101.0 fL 80.0-94.0 [facility] No Panel Informationon 12-13 25-Hydroxy Vitamin D Total 66.1 ng/mL [facility] Comment on above: <20 ng/mL Vit D defi cient20-<30 ng/mL Vit D fexgsirrodcs74-796 ng/mL Vit D sufficient>100 ng/mL Potential Toxicity Parathyroid Hormone (Intact) 50 pg/mL 15-65 [facility] Comment on above: Performed at: - [address] [id number] Director: Lee Bob PhD, Phone: [phone] Phosphorus Level 3.5 mg/dL 2.6-4.7 [facility] Urine Bacteria NONE SEEN #/HPF NONE SEEN [facility] Urine Occult Blood Negative NEGATIVE [facility] Urine Other Casts NONE SEEN #/LPF NONE SEEN [facility] Urine Other Crystals None Seen #/HPF None Seen [facility] Urine Random Creatinine 71.05 mg/dL 20.00-300. 00 [facility] Urine RBC NONE SEEN #/HPF 0-2 [facility] Urine Squamous Epithelial Cells RARE #/LPF NONE/RARE [facility] Urine WBC NONE SEEN #/HPF NONE SEEN [facility] Platelet mean volume Auto (B ld) [Entitic vol]on 12-14-2023 Platelet mean volume (Bld) [Entitic vol] 11.2 fL 9.5-13.5 [facility] Platelets Auto (Bld) [#/Vol] on 12-14-2023 Platelets (Bld) [#/Vol] 168 10 3/uL 150-450 [facility] RBC Auto (Bld) [#/Vol]on RBC (Bld) [#/Vol] 4.15 10 6/uL 4.70-6.10 [facility] Serum or plasma anion gap de terminationon 12-14-2023 Anion gap [Moles/Vol] 14.6 mmol/L [facility] Urine protein/creatinine rat ioon 12-14-2023 Protein/Creatinine (U) [Ratio] 0.15 [facility] Office Visiton 11-01-2023 Follow-up visit [id number] Ruben Smyth 1940 M Date Provider Department Center 11/01/2023 ISRA HICKS CARD [facility] Family History Problem Relation Age of Onset No Known Problems Mother No Known Problems Father Family Status - Relation Status Age at Mother Father Level of Service:79443 [facility] OFFICE/OUTPATIENT ESTABLISHED MOD MDM 30 MIN Reason for Visit and Comments: Coronary Artery Disease [187] Hypertension [841573] Normal [facility] Daniel 10-18-2023 L Specimen: [id number] Received: 10/19/23 Status: HIMANSHU Sorensentimothy Num: [id number] Spec Type: Surgical Subm Dr: EMELY STAFF Tissues: A Colon Biopsy (DESC POLYP AT 50 CM) Procedures: HE/2, Gross/Micro L4 Age/ Patient Sex Location Account Attending Physician HajaVictorino M 83/M LABELL [id number] NON STAFF SPEC NUM: [id number] RECD: 10/19/23 STATUS: HIMANSHU WILLIAMSON NUM: [id number] HYUN: 10/18/[address]: EMELY STAFF ENTERED: 10/19/[address]: Charito,Lab SPEC TYPE: Surgical DEPT: MIO JOSEPH ORDERED: HE/2, Gross/Micro L4 ORDERED: HE/2, Gross/Micro L4 Pathological Diagnosis Polyp, descending colon, biopsy: Hyperplastic polyp. Gross Description Received in formalin, labeled with the patient's name and descending colon polyp at 50 cm are 2 olsen mucosal tissue fragments measuring 0.5 x 0.3 x 0.1 cm and 0.2 x 0.2 x 0.1 cm, entirely submitted in A1. Clinical history: Sigmoid diverticulosis, descending colon polyp at 50 cm CPT Codes 42196 Specimen: [id number] Received: 10/19/23 Status: HIMANSHU Williamson Num: [id number] Spec Type: Surgical Subm Dr: EMELY STAFF Tissues: A Colon Biopsy (DESC POLYP AT 50 CM) Procedures: HE/2, Gross/Micro L4 Patient: Victorino Smyth [id number] (Continued) Signed (signature on file) Ana Villegas MD 10/20/23 1637 Normal [facility] 36on 09-06-2023 36 Blood pressure is lo oking better. Continue to hold amlodipine. Thanks! Normal [facility] 37on 08-23-2023 37 *Stop Amlodipine. *We will call you in 1 week to check in on your blood pressure readings. [facility] Office Visiton 08-23-2023 Follow-up visit [id number] Ruben Smyth 1940 M Date Provider Department Center 08/23/2023 Komal-ISRA GAYLE CARD [facility] Family History Problem Relation Age of Onset No Known Problems Mother No Known Problems Father Family Status - Relation Status Age at Mother Father Level of Service:16519 [place] OFFICE/OUTPATIENT ESTABLISHED MOD MDM 30 MIN Normal [facility] Lab Reportson 07-05-2023 Lab Reports [id number]#1.00TIFF Normal [facility] Lab Reports [id number]#1.00TIFF Normal [facility] Calcium [Mass/volume] in Ser um or PlasmaOrdered By: Ni Olivares on 07-02-2023 Calcium [Mass/Vol] 8.8 mg/dL Normal 8.6-10.3 [facility] Comment on above: Performed By: #### U THUY, CA, CREAT, BUN, PTH, LYTES #### [facility] [address] Carbon dioxide, total [Moles /volume] in Serum or PlasmaOrdered By: Ni Olivares on 07-02-2023 CO2 [Moles/Vol] 24.0 mmol/L Normal 21.0-31.0 [facility] Comment on above: Performed By: #### U THUY, CA, CREAT, BUN, PTH, LYTES #### [facility] [address] [place] [address] [place] Chloride [Moles/volume] in S paty or PlasmaOrdered By: Ni Olivares on 07-02-2023 Chloride [Moles/Vol] 107 mmol/L Normal 98-107 [place] Comment on above: Performed By: #### U THUY, CA, CREAT, BUN, PTH, LYTES #### [facility] [address] [place] [address] [place] Creatinineon 07-02-2023 GFR/1.73 sq M.predicted MDRD (S/P/Bld) [Vol rate/Area] 32.151 mL/min/{1.73_m2} Normal [facility] Comment on above: Performed By: #### U THUY, CA, CREAT, BUN, PTH, LYTES #### [facility] [address] [place] [address] [place] Creatinine [Mass/volume] in Serum or PlasmaOrdered By: Ni Olivares on 07-02-2023 Creatinine [Mass/Vol] 2.05 mg/dL High 0.70-1.30 [facility] Comment on above: Performed By: #### U THUY, CA, CREAT, BUN, PTH, LYTES #### [address] No Panel InformationOrdered By: Ni Olivares on 07-02-2023 Estimated GFR (CKD-EPI) 32.151 mL/Min [facility] Creatinine Clearance (Chem N/A [facility] Parathyrin.intact [Mass/volu me] in Serum or PlasmaOrdered By: Ni Olivares on 07-02-2023 Parathyrin.intact [Mass/Vol] 55.4 pg/mL [facility] Parathyroid Hormone Intacton 07-02-2023 Parathyroid Hormone Intact 55.4 pg/mL Normal [facility] Comment on above: Result Comment: PERF ORMED BY: [place] [address] PATHOLOGIST MANUFACTURING SPECIALIST DIANDRA LACY M.D. Performed By: #### U THUY, CA, CREAT, BUN, PTH, LYTES #### [address] Potassium [Moles/volume] in Serum or PlasmaOrdered By: Ni Olivares on 07-02-2023 Potassium [Moles/Vol] 5.0 mmol/L Normal 3.5-5.1 [facility] Comment on above: Performed By: #### U THUY, CA, CREAT, BUN, PTH, LYTES #### [address] Serum or plasma anion gap de terminationOrdered By: Ni Olivares on 07-02-2023 Anion gap [Moles/Vol] 12.0 mmol/L Normal 6.0-15.0 [facility] Comment on above: Performed By: #### U THUY, CA, CREAT, BUN, PTH, LYTES #### [address] Sodium [Moles/volume] in Ser um or PlasmaOrdered By: Ni Olivares on 07-02-2023 Sodium [Moles/Vol] 138 mmol/L Normal 136-145 [facility] Comment on above: Performed By: #### U THUY, CA, CREAT, BUN, PTH, LYTES #### [address] Urate [Mass/volume] in Serum or PlasmaOrdered By: Ni Marshall on 07-02-2023 Urate [Mass/Vol] 8.2 mg/dL High 4.4-7.6 [facility] Comment on above: Result Comment: PERF ORMED BY: [place] [address] PATHOLOGIST MANUFACTURING SPECIALIST DIANDRA LACY M.D. Performed By: #### U THUY, CA, CREAT, BUN, PTH, LYTES #### [address] Urea nitrogen [Mass/volume] in Serum or PlasmaOrdered By: Ni Olivares on 07-02-2023 Urea nitrogen [Mass/Vol] 31 mg/dL High 7-25 [facility] Comment on above: Performed By: #### U THUY, CA, CREAT, BUN, PTH, LYTES #### [address] Lab Reportson 07-01-2023 Lab Reports [id number]#1.00TIFF Normal [facility] PSA Total (Not a Screen)on 0 06-28-2023 PSA Total (Not a Screen) 4.730 ng/mL High 0.000-4.00 0 [facility] Comment on above: Result Comment: Seri al tumor marker results determined by assays using different manufacturers or methods may not be comparable. [facility] field operations technician and method: InfraReDx DXI, CHEMILUMINESCENT IMMUNOASSAY. PERFORMED BY: [place] [address] PATHOLOGIST MANUFACTURING SPECIALIST DIANDRA LACY M.D. Performed By: #### P SATOTAL #### [place] [address] [facility] Prostate specific Ag [Mass/v olume] in Serum or PlasmaOrdered By: Ni Olivares on 06-28-2023 Prostate specific Ag [Mass/Vol] 4.730 ng/mL 0.000-4.00 0 [facility] Comment on above: Serial tumor marker results determined by assays using different manufacturers or methods may not be comparable.[facility] field operations technician and method:HitmeisterEL DXI, CHEMILUMINESCENT IMMUNOASSAY. RAD - Ultrasound Reporton RAD - Ultrasound Report [id number]#1.00TIFF Normal [facility] Lab Reportson 06-16-2023 Lab Reports [id number]#1.00TIFF Normal [facility] Lab Reports [id number]#1.00TIFF Normal [facility] Lab Reports [id number]#1.00TIFF Normal [facility] Screenson 06-16-2023 Screens [id number]#1.00TIFF Normal [facility] US renal BIon 06-16-2023 US renal BI [facility] [place] [address] [place] [id number] Ultrasound Report Signed Patient: Victorino Smyth MR#: [id number] : 1940 Acct:[id number] Age/Sex: 82 / M ADM Date: 06/16/23 Loc: Room: Type: [facility] Attending Dr: Ni Olivares MD Ordering Provider: [...] Rehan Fuentes M.D.06/16/2023 4:02 PM Dictation Location: [place] [address] Tech: Sue Chiu Transcribed By: [facility] 06/16/23 1602 Dictated By: Rehan Fuentes DO 06/16/23 1559 Signed By: 06/16/23 1602 Normal [facility] Ambulatory Visit Summaryon 1 08-15-2022 Ambulatory Visit Summary VICTORINO SMYTH :1940 Visit Date:06/14/2023 Ambulatory Visit Instructions Your Diagnosis Kidney stone BPH with urinary obstruction Prostate cancer Tests Performed Urnls Dip Stick Auto w/o Microscopy POC 13538 US Renal -- Results Pending -- Please [...] with MARSHALL OLIVEROS, BHUPINDER Merritt When: Where: [facility] [address] [place] [address]- Medications What How Much When Instructions Unchanged [...] or concerns Unchanged (more content not included)... Normal [facility] Formson 06-14-2023 Forms [id number]#1.00TIFF [facility] Patient Educationon 06-14-20 23 Patient Education [...] ? 8 oz (237 mL) of milk, voomdbb-cksivdzsudwd-zjtfz milk, and calcium-fortifiedfruit juice. Calcium-fortified means that [...] Spinach (cooked), rhubarb, beets, sweet potatoes, and Niuean chard. ? Peanuts. ? Potato chips, occitan fries, and baked potatoes with skin on. ? Nuts and nut products. ? Chocolate. ? If you regularly take a diuretic medicine, make sure to eat at least 1 or 2 servings of fruits or vegetables that are high in potassium each day. These include: ? Avocado. ? Banana. ? Dukes, prune, carrot, or tomato juice. ? Baked [...] fish oil, or vitamin B6. ? Take mcxj-osk-pyjsnad and prescription medicines only as told by your health care provider. These include supplements. What foods sh (more content not included)... Normal [facility] Urology Office/Clinic Noteon 06-14-2023 Urology Office/Clinic [...] with voice recognition artificial intelligence software, specifically [employer], [employer] and or HowDo. Substitutions may have occurred due to the [...] prostate) TRUS/bx 07/05/[address] Carlisle. Path Sunset 6 (3+3) x2 involving 15%. Pt states [...] With When Contact Information MARSHALL OLIVEROS, Ni Garcia, URL [address] [facility] [address] [place] [address]- Additional Instructions: 1 year Patient Education Dietary Guidelines to Help Prevent Kidney Stones I, Dahiana Joseph, personally scribed for Dr. Olivares on 06/14/2023 09:48:20. . Documentation recorded by the scribeDahiana, accurately reflects the services(s) I performed and decisions made by me. Authenticated by Dr. Olivares on 06/14/2023 09:53:11. 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 Normal [facility] Comment on above: Result Comment: Elec tronically Signed By: Ni OLIVARES MD\.br\Date and Time Signed: 06/14/23 09:55 EST\.br\Electronically Co-Signed By: Dahiana Joseph\.br\Date and Time Co-Signed: 06/14/23 09:48 EST\.br\Electronically Co-Signed By: Dahiana Joseph\.br\Date and Time Co-Signed: 06/14/23 09:50 EST Consent for Procedure/Surger yon 12-21-2022 Consent for Procedure/Surgery [id number]#1.00CD:127 Normal [facility] IntraOperative Documentson 0 12-21-2022 IntraOperative Documents [id number]#1.00CD:127 [facility] Consent for Treatmenton 11-26 Consent for Treatment [id number]#1.00CD:127 Normal [facility] Inpatient Patient Summaryon 12-20-2022 Inpatient Patient Summary [address] [address] Clinical Summary Person Information Name: VICTORINO SMYTH Age: 82 Years : 1940 Sex: Male PCP: Tray Alfaro MD Marital Status: Race: White Ethnicity: Non- or Language: Maori Visit Id: Visit Reason: RIGHT KIDNEY STONE Speciality: Acuity: Enc Type: Outpatient Med Service: Surgery Arrival: 12/20/2022 15:00:15 Discharge: Dispo Type: Address: [address] [place] [id number] Provider Notes: Diagnosis: Problems Active Flank pain [...] Follow up: With: Address: When: Ni OLIVARES [address] [place] [address], [address], [place] [address] [facility] (1) Within 6 months Comments: [...] Cystoscopy with Stent Removal Discharge Instructions (Custom) Isamar [facility] Main OR Intraoperative Recor don 12-20-2022 Main OR Intraoperative Record IntraOp Document Type FTURO Summary Primary Physician: Ni OLIVARES MD Finalized Date/Time: 12/20/22 16:29:12 Pt. Name: VICTORINO SMYTH Bryan RuedaB./Sex: 1940 Male Med Rec #: [id number] Physician: Ni OLIVARES MD Financial #: [id number] Pt. Type: O Room/Bed: / Admit/Disch: 12/20/22 15:00:15 - Institution: Case Times FTURO Entry 1 Patient Times In Room 12/20/22 16:16:00 Out Room 12/20/22 16:28:00 Procedure Times Start 12/20/22 16:21:00 Stop 12/20/22 16:23:00 Anesthesia Times Last Modified By: Gemma BRITO, Maggie Garcia 12/20/22 16:24:05 Case Attendance FTURO Entry 1 Entry 2 Entry 3 Case Attendee MARSHALL OLIVEROS, Ni Menendez RN, Maggie Perez CST, Shabnam Garcia Role Performed Surgeon - Primary Email Engineer - Primary Scrub - Primary Time In [...] Verified (If Participants Gemma BRITO, Maggie Applicable) Gunjan Garcia, Ana MEADOWS, Shabnam Khanna Time Out Complete 12/20/22 16:17:00 [...] 16:24 Maggie Menendez RN 12/20/22 16:29 Normal [facility] Main OR Preoperative Recordo n 12-20-2022 Main OR Preoperative Record Holding Area Document Type FTURO Summary Primary Physician: Ni OLIVARES MD Finalized Date/Time: 12/20/22 15:39:13 Pt. Name: VICTORINO SMYTH Bryan RuedaB./Sex: 1940 Male Med Rec #: [id number] Physician: Ni OLIVARES MD Financial #: [id number] Pt. Type: O Room/Bed: / Admit/Disch: 12/20/22 [...] By: Janay Gonzales RN 12/20/22 15:39 Normal [facility] Operative Reporton Operative Report Patient: SHERYL [...] considering a repeat 24-hour urine/metabolic work-up. Normal [facility] Comment on above: Result Comment: Elec tronically Signed By: Ni OLIVARES MD\.br\Date and Time Signed: 12/20/22 16:29 EDT Outpatient Surgery Discharge Instructionon 12-20-2022 Outpatient Surgery Discharge Instruction [place] [id number] Patient Discharge Instructions PERSON INFORMATION Name: VICTORINO [...] up: With: Address: When: Ni OLIVARES [address], [address], [place] [id number] [facility] (1) Within 6 months Comments: [...] to serve you. Thank you for choosing [facility] Normal [facility] Postoperative Documentson Postoperative Documents [id number]#1.00CD:127 Normal [facility] Calculus Analysison 12-09-19 23 Color (Stone) Olsen Invalid Interpretation Code [facility] Comment on above: Performed By: #### 2 [id number] #### [facility] [address] [place] [address] Composition Comment Invalid Interpretation Code [facility] Comment on above: Result Comment: Perc entage (Represents the % composition) Performed By: #### 2 [id number] #### [facility] [address] [place] [address] Disclaimer: Comment Invalid Interpretation Code [facility] Comment on above: Result Comment: This test was developed and its performance characteristics determined by [employer]. It has not been cleared or approved by the Food and Drug Administration. Performed at: [facility] [address], [place] [id number] PhD Jarvis Bauman Performed By: #### 2 [id number] #### [facility] [address] [place] [address] Laboratory comment Dangelo (Report) Comment Invalid Interpretation Code [facility] Comment on above: Result Comment: Padmini gutierrez questions regarding Calculi Analysis contact [facility] at: [phone]. Performed By: #### 2 [id number] #### [facility] [address] [place] [address] Please Note: Comment Invalid Interpretation Code [facility] Comment on above: Result Comment: Calc salazar report will follow via computer, mail or general office assistant delivery. Performed By: #### 2 [id number] #### [facility] [address] [place] [address] Size (Stone) [Entitic vol] 3x5 Invalid Interpretation Code [facility] Comment on above: Result Comment: Mult iple pieces received. Dimensions of the largest piece reported. Performed By: #### 2 [id number] #### [facility] [address] [place] [address] Specimen source subject Nom Comment Invalid Interpretation Code [facility] Comment on above: Result Comment: Righ t Ureter Performed By: #### 2 [id number] #### [facility] [address] [place] [address] Stone Photo Comment Invalid Interpretation Code [facility] Comment on above: Result Comment: Phot ograph will follow under a separate cover Performed By: #### 2 [id number] #### [facility] [address] [place] [address] Urate (Stone) [Mass fraction] 100 % Invalid Interpretation Code [facility] Comment on above: Performed By: #### 2 [id number] #### [facility] [address] [place] [address] Weight (Stone) 131 mg Invalid Interpretation Code [facility] Comment on above: Performed By: #### 2 [id number] #### [facility] [address] [place] [address] Pre-Certification Formon Pre-Certification Form [id number]#1.00CD:127 [facility] IntraOperative Documentson 0 12-06-2022 IntraOperative Documents [id number]#1.00CD:127 [facility] Consent for Anesthesiaon Consent for Anesthesia [id number]#1.00CD:127 [facility] Discharge Instructionson Discharge Instructions [id number]#1.00CD:127 [facility] IntraOperative Documentson 0 12-03-2022 IntraOperative Documents [id number]#1.00CD:127 [facility] IntraOperative Documents [id number]#1.00CD:127 [facility] Main OR Intraoperative Recor don 12-03-2022 Main OR Intraoperative Record [facility] Preoperative Documentson Preoperative Documents [id number]#1.00CD:127 [facility] Preoperative Documents [id number]#1.00CD:127 [facility] Preoperative Documents [id number]#1.00CD:127 [facility] Progress Note-Physicianon Progress Note-Physician Patient: VICTORINO [...] meets criteria ( To home ). Normal [facility] Comment on above: Result Comment: Elec [...] Problems Acute kidney failure / SNOMED CT 25281539 / Confirmed BPH with urinary obstruction / SNOMED CT 1141954568 / Confirmed Chronic obstructive pulmonary disease (COPD) / SNOMED CT 08347798 / Confirmed Coronary artery disease / SNOMED CT 25574908 / Confirmed Anticoagulated / SNOMED CT 508371756 / Confirmed Erectile dysfunction / SNOMED CT 7927126787 / Confirmed Flank pain / SNOMED CT 403702220 / Confirmed H/O: hypothyroidism / SNOMED CT 483020527 / Confirmed Hydronephrosis / SNOMED CT 81165234 / Confirmed Hydronephrosis with ureteral calculus / SNOMED CT 9649391220 / Confirmed Hyperlipidemia / SNOMED CT 61870169 / Confirmed Hyperplastic colon polyp / SNOMED CT 9419486425 / Confirmed Hypertension / SNOMED CT 9375168361 / Confirmed Kidney stone / SNOMED CT 626965933 / Confirmed Prostate cancer / SNOMED CT 2726643551 / Confirmed Myocardial infarct / SNOMED CT 96428461 / Confirmed BPH associated with nocturia / SNOMED CT 8872039744 / Confirmed Occult blood in stools / SNOMED CT 43767493 / Confirmed Postprandial diarrhea / SNOMED CT 28076007 / Confirmed Elevated PSA / SNOMED CT 2984220448 / Confirmed Urinary retention / SNOMED CT 588899405 / Confirmed Rheumatoid arthritis / SNOMED CT 310538564 / Confirmed DM (diabetes mellitus), type 2 / SNOMED CT 981775584 / Confirmed Ureteral stone / SNOMED CT 13549424 / Confirmed Histories Procedure history: ESWL of kidney (67540097) on 10/07/2022 at 82 Years. Transurethral resection of prostate (596537436) on 08/01/2019 at 79 Years. Biopsy of prostate (748299755) on 07/04/2019 at 78 Years. cystoscopy, bilateral, ureteroscopy, laser lithotripsy on 06/27/2019 at 78 Years. TRIGGER FINGER RELEASE. Neuroplasty and/or transposition; median nerve at carpal tunnel (45897). Percutaneous transluminal coronary angioplasty; single major coronary artery or branch (93082). Patient has a coronary artery stent (Peri2) [...] adequate air exchange. Cardiovascular: Regular rhythm. Plan [place] [employer]hesi[employer] (ASA) physical status classification: Class III. Anesthetic Preoperative Plan: Anesthesia General. Normal [facility] Comment on above: Result Comment: Elec tronically Signed By: Reji Hidalgo DO, Ty Khanna\.br\Date and Time Signed: 12/03/22 08:21 EDT Capillary Glucose POCon Glucose [Mass/Vol] 82 mg/dL Normal 55-99 [facility] Comment on above: Result Comment: Jackelin uqach RN/MD Performed By: #### 2 [id number] #### [facility] Laboratory [address] [place] [address] Consent for Procedure/Surger yon 12-02-2022 Consent for Procedure/Surgery [id number]#[id number]:127 Normal [facility] Consent for Treatmenton Consent for Treatment [id number]#1.00CD:127 Normal [facility] Discharge Instructionson Discharge Instructions VICTORINO SMYTH [...] When: Comments: Call for followup appointment Where: [facility] [address] [address]- Business (1) Medications What How Much When Instructions Next Dose New doxycycline (doxycycline hyclate 100 mg Cap) 1 Capsules By Mouth 2 times a day Duration: 5 Days Pickup at [facility] #54610 Unchanged albuterol (Ventolin Diskus) 2 Puffs Inhalation [...] needed for Itching Pharmacy Information [id number]: [address], [place] [id number] [phone] Allergies ciprofloxacin (Rash) levothyroxine (Mouth swelling) liothyronine (Mouth (more content not included)... Normal [facility] Comment on above: Result Comment: Elec tronically Signed By: Shae BRITO, Jazmin Eli\.br\Date and Time Signed: 12/02/22 12:25 EDT H&P Updateon 12-02-2022 H&P Update [id number]:127 Normal [facility] Inpatient Patient Summaryon 12-02-2022 Inpatient Patient Summary [address] [address] [facility] Clinical Discharge Instructions PERSON INFORMATION Name: VICTORINO SMYTH [facility]#:[id number] PHYSICIANS Admitting Physician: Ni OLIVARES MD Attending Physician: Ni OLIVARES MD PCP: Erum OLIVEROS, Tray Discharge Diagnosis: Comment: PATIENT EDUCATION INFORMATION Instructions: Xwvu-Soph-vr Utereroscopy,Lithotripsy, Stone Extraction, Stent Placement (Custom) Medication Leaflets: Follow up: With: Address: When: Ni OLIVARES [address] [place] [address], [address], [address] [address] [facility] (1) Comments: Call for followup appointment MEDICATION LIST New Medications [id number], [address], [place] [id number], [phone] doxycycline (doxycycline hyclate 100 mg Cap) 1 [...] apply to chin, and forhead Comment: Isamar [facility] Main OR PACU I Recordon 06-0 Main OR PACU I Record PACU Phase I Docum ent Type FT Summary Primary Physician: Ni OLIVARES MD Finalized Date/Time: 12/02/22 12:58:10 Pt. Name: VICTORINO SMYTH Bryan Chatman./Sex: 1940 Male Med Rec #: [id number] Physician: Ni OLIVARES MD Financial #: [id number] Pt. Type: A Room/Bed: [place] [address] Admit/Disch: 12/02/22 09:31:57 - Institution: Case Times [...] By: Piedad Blanco RN 12/02/22 12:58 Normal [facility] Main OR PACU II Recordon Main OR PACU II Record PACU Phase II Doc ument Type FT Summary Primary Physician: Ni OLIVARES MD Finalized Date/Time: 12/02/22 13:45:57 Pt. Name: SMYTHVICTORINO./Sex: 1940 Male Med Rec #: [id number] Physician: Ni OLIVARES MD Financial #: [id number] Pt. Type: A Room/Bed: [facility] Admit/Disch: 12/02/22 09:31:57 - Institution: Case Times [...] By: Jazmin Kaufman RN 12/02/22 13:45 Normal [facility] Main OR Preoperative Recordo n 12-02-2022 Main OR Preoperative Record PreOp Document Type FT Summary Primary Physician: Ni OLIVARES MD Finalized Date/Time: 12/02/22 11:00:33 Pt. Name: HAJA VICTORINODANYELLE Dubon/Sex: 1940 Male Med Rec #: [id number] Physician: Ni OLIVARES MD Financial #: [id number] Pt. Type: Room/Bed: [facility] Admit/Disch: 12/02/22 09:31:57 - Institution: Case Times [...] By: Soraya Borrego RN 12/02/22 11:00 Normal [facility] Monitor Recordon 12-02-2022 Monitor Record [id number]#[id number]:127 Normal [facility] Monitor Record [id number]:127 Normal [facility] Operative Reporton 3 Operative Report Patient: [...] jelly placed per urethra. A well-lubricated 22 Gambian is urethroscope with 30 degree lens then [...] backloaded over the wire and a 4.7 [place] Bard inlay double-J stent is passed into [...] ml. Complications: None. Anesthesia type: General. Normal [facility] Comment on above: Result Comment: Elec tronically Signed By: Ni OLIVARES MD\.br\Date and Time Signed: 12/02/22 11:51 EDT Outpatient Surgery Discharge Instructionon 12-02-2022 Outpatient Surgery Discharge Instruction [address] [address] Patient Discharge Instructions PERSON INFORMATION [...] Follow up: With: Address: When: Ni OLIVARES [address] [place] [address], [address], [place] [address] [facility] (1) Comments: Call for followup appointment Pharmacy Information: You may receive a survey from [employer] asking you to rate your care experience. Your feedback is important and will help us understand what we do well and how we can improve the quality of care we provide to you, your loved ones and our community. It?s an honor to serve you. Thank you for choosing [facility] HERE ARE THE MEDICATION CHANGES THAT OCCURRED DURING YOUR HOSPITAL STAY New Medications [id number], [address], [place] [id number], [phone] doxycycline (doxycycline hyclate 100 mg Cap) 1 [...] forhead PATIENT EDUCATION INFORMATION Instructions: [facility] [place], [place] Dr. Ni Omalley Post-operative Instructions for [...] swelling, kidn (more content not included)... Normal [facility] Patient Education - Texton 0 12-02-2022 [...] MDI an (more content not included)... Normal [facility] XR Abdomen 1 Viewon 12-03-19 23 [...] in mGy = na DAP = na [facility] Consultation Noteon 11-29-19 Consultation Note [id number]#1.00CD:127 [facility] Outside Recordson 11-24-2022 Outside Records [id number]#[id number]:127 [facility] C Urineon 11-20-2022 Bacteria identified Cx [...] Locations R1: [facility] at[facility], [address] [place] [address], [address] , , [facility] Comment on above: Performed By: #### 1 [id number], 7474344 ####[facility] [address] [place] [address] Albuminon 11-18-2022 Albumin [Mass/Vol] 4.0 g/dL Normal 3.3-5.0 [facility] Comment on above: Performed By: #### 2 903250, 7276374, 1784021, 98438497, 952443484, 0310891, 1027331, 7690993, 2698231 ####[facility] [address] [place] [address] Auto Diffon 11-18-2022 Basophils/100 WBC (Bld) 0.2 % Normal 0.0-2.0 [facility] Comment on above: Order Comment: Order Added by Discern Expert. Performed By: #### 2 [id number] #### [facility] [address] [place] [address] Basophils/Leukocytes Auto (Bld) [Pure # fraction] 0.0 E9/L Normal 0.0-0.2 [facility] Comment on above: Order Comment: Order Added by Discern Expert. Performed By: #### 2 [id number] #### [facility] [address] [place] [address] Eosinophils/100 WBC (Bld) 0.1 % Normal 0.0-8.0 [facility] Comment on above: Order Comment: Order Added by Discern Expert. Performed By: #### 2 [id number] #### [facility] [address] [place] [address] Eosinophils/Leukocytes Auto (Bld) [Pure # fraction] 0.0 E9/L Normal 0.0-0.5 [facility] Comment on above: Order Comment: Order Added by Discern Expert. Performed By: #### 2 [id number] #### [facility] [address] [place] [address] Lymphocytes/100 WBC (Bld) 8.6 % Low 14.0-50.0 [facility] Comment on above: Order Comment: Order Added by Discern Expert. Performed By: #### 2 [id number] #### [facility] [address] [place] [address] Lymphocytes/Leukocytes Auto (Bld) [Pure # fraction] 0.9 E9/L Low 1.0-4.0 [facility] Comment on above: Order Comment: Order Added by Discern Expert. Performed By: #### 2 [id number] #### [facility] [address] [place] [address] Monocytes/100 WBC (Bld) 7.1 % Normal 4.0-14.0 [facility] Comment on above: Order Comment: Order Added by Discern Expert. Performed By: #### 2 [id number] #### [facility] [address] [place] [address] Monocytes/Leukocytes Auto (Bld) [Pure # fraction] 0.7 E9/L Normal 0.2-1.0 [facility] Comment on above: Order Comment: Order Added by Discern Expert. Performed By: #### 2 [id number] #### [facility] [address] [place] [address] Neutrophils/100 WBC (Bld) 84.0 % High 36.0-75.0 [facility] Comment on above: Order Comment: Order Added by Discern Expert. Performed By: #### 2 [id number] #### [facility] [address] [place] [address] Neutrophils/Leukocytes Auto (Bld) [Pure # fraction] 8.7 E9/L High 2.0-7.5 [facility] Comment on above: Order Comment: Order Added by Discern Expert. Performed By: #### 2 [id number] #### [facility] [address] [place] [address] BMPon 11-18-2022 Anion gap [Moles/Vol] 12 mmol/L Normal 6-16 [facility] Comment on above: Performed By: #### 2 [id number] #### [facility] [address] [place] [address] Calcium [Mass/Vol] 9.3 mg/dL Normal 8.9-11.1 [facility] Comment on above: Performed By: #### 2 [id number] #### [facility] [address] [place] [address] Chloride [Moles/Vol] 109 mmol/L Normal 101-111 [facility] Comment on above: Performed By: #### 2 [id number] #### [facility] [address] [place] [address] CO2 [Moles/Vol] 24 mmol/L Normal 21-31 [facility] Comment on above: Performed By: #### 2 [id number] #### [facility] [address] [place] [address] Creatinine [Mass/Vol] 2.5 mg/dL High 0.5-1.3 [facility] Comment on above: Performed By: #### 2 [id number] #### [facility] [address] [place] [address] Glucose [Mass/Vol] 130 mg/dL Normal 55-199 [facility] Comment on above: Result Comment: If t his glucose result represents a fasting glucose, interpretation should refer to the following reference range: 55-99 mg/dL Performed By: #### 2 [id number] #### [facility] [address] [place] [address] Potassium [Moles/Vol] 4.8 mmol/L Normal 3.5-5.3 [facility] Comment on above: Performed By: #### 2 12979268 #### [facility] [address] [place] [address] Sodium [Moles/Vol] 140 mmol/L Normal 135-145 [facility] Comment on above: Performed By: #### 2 [id number] #### [facility] [address] [place] [address] Urea nitrogen [Mass/Vol] 38 mg/dL High 5-21 [facility] Comment on above: Performed By: #### 2 [id number] #### [facility] [address] [place] [address] Urea nitrogen/Creatinine [Mass ratio] 15 No Units Normal 10-20 [facility] Comment on above: Performed By: #### 2 [id number] #### [facility] [address] [place] [address] CBC w/ Auto Diffon 3 Erythrocyte distribution width (RBC) [Ratio] 13.5 % Normal 10.9-14.2 [facility] Comment on above: Performed By: #### 2 43076110 #### [facility] [address] [place] [address] Hematocrit (Bld) [Volume fraction] 34.9 % Low 37.7-49.0 [facility] Comment on above: Performed By: #### 2 09594159 #### [facility] [address] [place] [address] Hemoglobin (Bld) [Mass/Vol] 11.7 g/dL Low 13.5-17.5 [facility] Comment on above: Performed By: #### 2 85235711 #### [facility] [address] [place] [address] MCH (RBC) [Entitic mass] 32.1 pg Normal 27.0-34.0 [facility] Comment on above: Performed By: #### 2 81213291 #### [facility] [address] [place] [address] MCHC (RBC) [Mass/Vol] 33.6 g/dL Normal 31.4-36.0 [facility] Comment on above: Performed By: #### 2 18961365 #### [facility] [address] [place] [address] MCV (RBC) [Entitic vol] 95.4 fL Normal 80.0-100.0 [facility] Comment on above: Performed By: #### 2 86802829 #### [facility] [address] [place] [address] Platelet mean volume (Bld) [Entitic vol] 8.7 fL Normal 6.4-10.8 [facility] Comment on above: Performed By: #### 2 12051676 #### [facility] [address] [place] [address] Platelets (Bld) [#/Vol] 214.0 E9/L Normal 150.0-500. 0 [facility] Comment on above: Performed By: #### 2 88154081 #### [facility] [address] [place] [address] RBC (Bld) [#/Vol] 3.7 E12/L Low 4.3-5.9 [facility] Comment on above: Performed By: #### 2 04797561 #### [facility] [address] [place] [address] WBC corrected for nucl RBC Auto (Bld) [#/Vol] 10.4 E9/L Normal 4.0-11.0 [facility] Comment on above: Performed By: #### 2 38818332 #### [facility] [address] [place] [address] Consent for Treatmenton 10-26 Consent for Treatment [id number]:127 Normal [facility] Consent for Treatment [id number]:127 Normal [facility] Ferritinon 11-18-2022 Ferritin [Mass/Vol] 192 ng/mL Normal 24-336 [facility] Comment on above: Result Comment: NORM ALS MEN <30 YRS 16-132 ng/mL MEN >30 YRS 8-338 ng/mL WOMEN (PREMEN) 6-104 ng/mL WOMEN (POSTMEN) 12-210 ng/mL Performed By: #### 2 178997, 5275069, 3292517, 40112274, 914854749, 7321963, 8591837, 6039130, 9523230 ####[facility] [address] [place] [address] Folateon 11-18-2022 Folate [Mass/Vol] ng/mL Normal >=6.7 [facility] Comment on above: Performed By: #### 2 353183, 3422154, 8584499, 83736094, 608053507, 9131671, 1126016, 9396433, 8908594 ####[facility] [address] [place] [address] Ironon 11-18-2022 Iron [Mass/Vol] 102 microgram/dL Normal 35-153 [facility] Comment on above: Performed By: #### 2 769503, 0600953, 3948360, 33586389, 510287437, 2656249, 2376931, 3213052, 4896970 ####[facility] [address] [place] [address] PT & PTTon 11-18-2022 aPTT Coag (PPP) [Time] 27.1 second(s) Normal 25.1-36.5 [facility] Comment on above: Result Comment: Para [...] the same coagulation reagent and instrumentation as [facility]. Currently there are no coagulation studies available worldwide for children to 14 days, and no normal ranges. Heparin therapeutic range (represented by Anti-Factor Xa activity of 0.2 - 0.4 U/mL) corresponds to PTT of 56.6 - 109.0 sec. Performed By: #### 2 [id number] #### [facility] [address] [place] [address] INR Coag (PPP) [Relative time] 1.1 {INR} Invalid Interpretation Code [facility] Comment on above: Result Comment: INR results are specifically intended to assess patients stabilized on long-term Anticoagulation therapy suggested INR?s ?Less Intensive Anticoagulation? 2.0 ? 3.0 Conventional Range 3.0 ? 4.5 Performed By: #### 2 [id number] #### [facility] [address] [place] [address] PT Coag (PPP) [Time] 11.9 second(s) Normal 9.4-12.5 [facility] Comment on above: Result Comment: 15 [...] the same coagulation reagent and instrumentation as [facility]. Currently there are no coagulation studies available worldwide for children to 14 days, and no normal ranges. Performed By: #### 2 [id number] #### [facility] [address] [place] [address] Phosphoruson 11-18-2022 Phosphate [Mass/Vol] 4.4 mg/dL Normal 1.9-4.6 [facility] Comment on above: Performed By: #### 2 327199, 6547856, 7498644, 19198979, 528815423, 2627788, 4542949, 1554035, 1950440 ####[facility] [address] [place] [address] Physician Orderon 11-18-2022 Physician Order [id number]:127 Normal [facility] TIBC Calculatedon 11-18-2022 Iron binding capacity [Mass/Vol] 292 microgram/dL Normal 250-400 [facility] Comment on above: Performed By: #### 2 080873, 3802018, 8201344, 06146354, 611949672, 4815073, 5791607, 2289249, 6994378 ####[facility] [address] [place] [address] Transferrin [Mass/Vol] 208 mg/dL Normal 200-370 [facility] Comment on above: Performed By: #### 2 468520, 1488487, 7706229, 78633689, 776740151, 5933502, 1516182, 8023720, 1019661 ####[facility] [address] [place] [address] U Protein/Creat Ratioon 10-26 Albumin Elph (U) [Mass fraction] 25.2 mg/dL Invalid Interpretation Code [facility] Comment on above: Result Comment: The reference range and other method performance specifications have not been established for this test; results should be integrated into the clinical context for interpretation. Performed By: #### 1 [id number] #### [facility] [address] [place] [address] Creatinine (U) [Mass/Vol] 80.6 mg/dL Invalid Interpretation Code [facility] Comment on above: Result Comment: The reference range and other method performance specifications have not been established for this test; results should be integrated into the clinical context for interpretation. Performed By: #### 1 [id number] #### [facility] [address] [place] [address] U Prot/Creat Ratio 312.70 mg/gm Cr High .00-200.00 [facility] Comment on above: Performed By: #### 1 [id number] #### [facility] [address] [place] [address] UA With Cult Reflexon 2022 Bilirubin Ql (U) Negative Normal Negative [facility] Comment on above: Performed By: #### 1 9317944, 4218978 #### [facility] [address] [place] [address] Clarity (U) CLEAR Normal Clear [facility] Comment on above: Performed By: #### 1 0962296, 1037054 #### [facility] [address] [place] [address] Color (U) YELLOW Normal Yellow [facility] Comment on above: Performed By: #### 1 1693240, 1833558 #### [facility] [address] [place] [address] Epithelial cells.squamous LM.HPF (Urine sed) [#/Area] 0-2 Normal 0-2 [facility] Comment on above: Performed By: #### 1 6109871, 7526647 #### [facility] [address] [place] [address] Glucose Test strip (U) [Mass/Vol] Negative Normal Negative [facility] Comment on above: Performed By: #### 1 2126459, 3002185 #### [facility] [address] [place] [address] Hemoglobin Ql (U) 3+ Abnormal Negative [facility] Comment on above: Performed By: #### 1 6668744, 7372966 #### [facility] [address] [place] [address] Ketones (U) [Mass/Vol] Negative Normal Negative [facility] Comment on above: Performed By: #### 1 4147556, 3946065 #### [facility] [address] [place] [address] [place].plasma/[place] .RBC (Bld) [Mass ratio] >30 Abnormal 0-3 [facility] Comment on above: Performed By: #### 1 2462176, 8319146 #### [facility] [address] [place] [address] Nitrite Ql (U) Negative Normal Negative [facility] Comment on above: Performed By: #### 1 2948587, 4664434 #### [facility] [address] [place] [address] pH (U) 6.0 [pH] Invalid Interpretation Code 5.0-9.0 [facility] Comment on above: Performed By: #### 1 9464529, 9356441 #### [facility] [address] [place] [address] Protein (U) [Mass/Vol] TRACE Abnormal Negative [facility] Comment on above: Performed By: #### 1 3899965, 0768687 #### [facility] [address] [place] [address] Specific gravity (U) [Rel density] 1.020 Invalid Interpretation Code 1.005-1.03 0 [facility] Comment on above: Performed By: #### 1 9236629, 7487419 #### [facility] [address] [place] [address] Type of Urine collection method Clean Catch Normal [facility] Comment on above: Performed By: #### 1 2521900, 3938169 #### [facility] [address] [place] [address] Urobilinogen Qn (U) 0.2 {Wil'U}/dL Normal 0.0-1.0 [facility] Comment on above: Performed By: #### 1 4452401, 1844340 #### [facility] [address] [place] [address] WBC Auto Ql (U) 1+ Abnormal Negative [facility] Comment on above: Performed By: #### 1 8142931, 5869191 #### [facility] [address] [place] [address] WBC LM.HPF (Urine sed) [#/Area] 0-5 Normal 0-5 [facility] Comment on above: Performed By: #### 1 8220651, 9766354 #### [facility] [address] [place] [address] Uric Acidon 11-18-2022 Urate [Mass/Vol] 7.0 mg/dL Normal 2.2-7.4 [facility] Comment on above: Performed By: #### 2 341693, 2805842, 4812400, 70337188, 771254769, 4027175, 0775416, 8754040, 2616244 ####[facility] [address] [place] [address] Vit B12on 11-18-2022 Cobalamin (Vitamin B12) [Mass/Vol] 495 pg/mL Normal 50-1500 [facility] Comment on above: Performed By: #### 2 628139, 7261724, 2059565, 14713074, 604248991, 2365283, 5521854, 6123387, 2961854 ####[facility] [address] [place] [address] Vitamin D 25 Hydroxyon 11-18 25-hydroxyvitamin D3 [Mass/Vol] 64.8 ng/mL Normal 30.0-100.0 [facility] Comment on above: Result Comment: Vit grewal D deficiency has been defined as a level of serum 25-OH vitamin D less than 20 ng/mL (1,2) by the [place] [employer] and an Endocrine Society practice guideline. The Endocrine Society further defined vitamin D insufficiency as a level between 21 and 29 ng/mL (2). 1. IOM ([place] [employer]). 2010. Dietary reference intakes for calcium and D. [place]: The National Academies Press. 2. Kortney MF, Candie NC, Ekaterina WEINBERG, et al. Evaluation, treatment, and prevention of vitamin D deficiency: an Endocrine Society clinical practice guideline. JCEM. 2010; 96 (7):1911-30. Performed By: #### 2 [id number], [id number], [id number], [id number], [id number], [id number], [id number], [id number], [id number] ####[facility] [address] [place] [address] eGFRon 11-18-2022 GFR/1.73 sq M.predicted among non-blacks MDRD (S/P/Bld) [Vol rate/Area] 25 mL/min/1.73 m2 Low >=59 [facility] Comment on above: Order Comment: Order added by Discern Expert. Result Comment: Stone Lathe Operator christa kidney disease could be indicated at eGFR's of less than 60 mL/min/1.73m2. Kidney failure is indicated at less than 15 mL/min/1.73m2. Performed By: #### 2 [id number] #### [facility] [address] [place] [address] Lab Reportson 11-12-2022 Lab Reports [id number]#1.00CD:127 Normal [facility] Lab Reports [id number]#1.00CD:127 Normal [facility] Lab Reports [id number]#[id number]:127 Normal [facility] Lab Reports [id number]#[id number]:127 Normal [facility] PSA, FREE AND TOTAL RATIOon 11-09-2022 % Free PSA 11.3 % Normal [facility] Comment on above: Result Comment: The [...] men. Performed By: #### P SAFREE #### [facility] [address] [place] [address] Dr. Alicia Patel Prostate specific Ag [Mass/Vol] 4.6 ng/mL Critically high 0.0-4.0 [facility] Comment on above: Result Comment: Dwight JUAREZ methodology. . According to the [place] [employer], Serum PSA should decrease and [...] disease. Performed By: #### P SAFREE #### [facility] [address] [place] [address] Dr. Alicia Patel PSA, Free 0.52 ng/mL Normal N/A [facility] Comment on above: Result Comment: Dwight JUAREZ methodology. Performed By: #### P SAFREE #### [facility] [address] [place] [address] Dr. Alicia Patel INSULINon 11-08-2022 Insulin 18.5 uIU/mL Normal 2.6-24.9 [facility] Comment on above: Performed By: #### T SH, LIPID, T4, FT3, CMP #### [facility] [address] [place] [address] Dr. Alicia Patel CBC AUTO DIFFon 11-06-2022 BASO # 0.0 103/ul Normal 0.0-0.1 [facility] Comment on above: Performed By: #### C BC #### [facility] [address] [place] [address] Dr. Alicia Patel Basophils/100 WBC (Bld) 0.4 % Normal 0.2-2.0 [facility] Comment on above: Performed By: #### C BC #### [facility] [address] [place] [address] Dr. Alicia Patel EO # 0.2 103/ul Normal 0.0-0.7 [facility] Comment on above: Performed By: #### C BC #### [facility] [address] [place] [address] Dr. Alicia Patel Eosinophils/100 WBC (Bld) 4.6 % Normal 0.9-7.0 [facility] Comment on above: Performed By: #### C BC #### [facility] [address] [place] [address] Dr. Alicia Patel Erythrocyte distribution width (RBC) [Ratio] 13.2 % Normal 11.0-15.0 [facility] Comment on above: Performed By: #### C BC #### [facility] [address] [place] [address] Dr. Alicia Patel Hematocrit (Bld) [Volume fraction] 34.6 % Critically low 42.0-54.0 [facility] Comment on above: Performed By: #### C BC #### [facility] [address] [address] [address] Alicia Patel Hemoglobin (Bld) [Mass/Vol] 11.4 g/dL Critically low 14.0-18.0 [facility] Comment on above: Performed By: #### C BC #### [facility] [address] [address] [address] Alicia Patel IG # 0.03 10e3/ul Normal 0.00-0.03 [facility] Comment on above: Performed By: #### C BC #### [facility] [address] [address] [address] Alicia Patel IG % 0.6 % Critically high 0.0-0.5 [facility] Comment on above: Performed By: #### C BC #### [facility] [address] [place] [address] Dr. Alicia Patel LYMPH # 0.9 103/ul Critically low 1.2-3.8 [facility] Comment on above: Performed By: #### C BC #### [facility] [address] [place] [address] Dr. Alicia Patel Lymphocytes/100 WBC (Bld) 16.3 % Critically low 20.5-60.0 [facility] Comment on above: Performed By: #### C BC #### [facility] [address] [place] [address] Dr. Alicia Patel MANUAL DIFF REQ NO Normal [facility] Comment on above: Performed By: #### C BC #### [facility] [address] [address] [address] Alicia Patel MCH (RBC) [Entitic mass] 32.9 pg Normal 25.9-34.0 [facility] Comment on above: Performed By: #### C BC #### [facility] [address] [place] [address] Dr. Alicia Patel MCHC (RBC) [Mass/Vol] 32.9 g/dL Normal 29.9-35.2 [facility] Comment on above: Performed By: #### C BC #### [facility] [address] [place], [place] [id number] Dr. Alicia Patel MCV (RBC) [Entitic vol] 99.7 fL Critically high 80.0-94.0 [facility] Comment on above: Performed By: #### C BC #### [facility] [address] [place] [address] Dr. Alicia Patel MONO # 0.6 103/ul Normal 0.3-0.8 [facility] Comment on above: Performed By: #### C BC #### [facility] [address] [place] [address] Dr. Alicia Patel Monocytes/100 WBC (Bld) 12.0 % Normal 1.7-12.0 [facility] Comment on above: Performed By: #### C BC #### [facility] [address] [place] [address] Dr. Alicia Patel NEUT # 3.5 103/ul Normal 1.4-6.5 [facility] Comment on above: Performed By: #### C BC #### [facility] [address] [place] [address] Dr. Alicia Patel Neutrophils/100 WBC (Bld) 66.1 % Normal 43.0-75.0 [facility] Comment on above: Performed By: #### C BC #### [facility] [address] [place] [address] Dr. Alicia Patel Platelet mean volume (Bld) [Entitic vol] 10.1 fL Normal 9.5-13.5 [facility] Comment on above: Performed By: #### C BC #### [facility] [address] [place] [address] Dr. Alicia Patel PLT 168 103/ul Normal 150-450 [facility] Comment on above: Performed By: #### C BC #### [facility] [address] [place] [address] Dr. Alicia Patel RBC 3.47 106/ul Critically low 4.70-6.10 [facility] Comment on above: Performed By: #### C BC #### [facility] [address] [place] [address] Dr. Alicia Patel WBC 5.2 103/ul Normal 4.0-11.0 [facility] Comment on above: Performed By: #### C BC #### [facility] [address] [place] [address] Dr. Alicia Patel FREE T3on 11-06-2022 FREE T3 2.78 pg/mlL Normal 2.18-3.98 [facility] Comment on above: Performed By: #### U RTPCR #### [facility] [address] [place] [address] Dr. Alicia Patel GLYCOHEMOGLOBIN A1Con 2022 ADA RECOMMENDATION SEE BELOW Normal [facility] Comment on above: Result Comment: ADA RECOMMENDED LIMIT 4.0 - 6.0 ADA THERAPEUTIC TARGET < 7.0 ACTION SUGGESTED > 7.0 Performed By: #### T SH, LIPID, T4, FT3, CMP #### [facility] [address] [place] [address] Dr. Alicia Patel Glucose [Mass/Vol] 120 mg/dL Normal [facility] Comment on above: Performed By: #### T SH, LIPID, T4, FT3, CMP #### [facility] [address] [place] [address] Dr. Alicia Patel HbA1c (Bld) [Mass fraction] 5.8 % Normal 4.5-6.2 [facility] Comment on above: Performed By: #### T SH, LIPID, T4, FT3, CMP #### [facility] [address] [place] [address] Dr. Alicia Patel LIPID PROFILEon 11-06-2022 CHOL-HDL RATIO NORM SEE BELOW Normal [facility] Comment on above: Result Comment: 3.3 - 4.4 LOW RISK 4.4 - 7.1 AVERAGE RISK 7.1 - 11.0 MODERATE RISK >11.0 HIGH RISK Performed By: #### U RTPCR #### [facility] [address] [place] [address] Dr. Alicia Patel Cholesterol [Mass/Vol] 107 mg/dL Normal <=200 [facility] Comment on above: Performed By: #### U RTPCR #### [facility] [address] [address] [address] Alicia Patel Cholesterol in HDL [Mass/Vol] 34 mg/dL Critically low 40-60 [facility] Comment on above: Performed By: #### U RTPCR #### [facility] [address] [address] [address] Alicia Patel Cholesterol in LDL [Mass/Vol] 58.8 mg/dL Normal [facility] Comment on above: Performed By: #### U RTPCR #### [facility] [address] [address] [address] Alicia Patel Cholesterol.total/Chol esterol in HDL [Mass ratio] 3.1 {ratio} Normal [facility] Comment on above: Performed By: #### U RTPCR #### [facility] [address] [address] [address] Alicia Patel HDL NORMAL > or = 60 mg/dl - LO W CARDIOVASCULAR RISK <40 mg/dl - HIGH CARDIOVASCULAR RISK Normal [facility] Comment on above: Performed By: #### U RTPCR #### [facility] [address] [address] [address] Alicia Patel LDL CALC NORMAL SEE BELOW Normal [facility] Comment on above: Result Comment: <100 mg/dl OPTIMAL 100 - 129 mg/dl NEAR OR ABOVE OPTIMAL 130 - 159 mg/dl BORDERLINE HIGH 160 - 189 mg/dl HIGH >190 mg/dl VERY HIGH Performed By: #### U RTPCR #### [facility] [address] [address] [address] Alicia Patel Triglyceride [Mass/Vol] 71 mg/dL Normal <=150 [facility] Comment on above: Performed By: #### U RTPCR #### [facility] [address] [address] [address] Alicia Patel VLDL CALC 14.2 mg/dL Normal [facility] Comment on above: Performed By: #### U RTPCR #### [facility] [address] [address] [address] Alicia Patel PROF 14(COMP METB)on 023 Albumin [Mass/Vol] 3.4 g/dL Normal 3.4-5.0 [facility] Comment on above: Performed By: #### T SH, LIPID, T4, FT3, CMP #### [facility] [address] [place] [address] Dr. Alicia Patel Albumin/Globulin [Mass ratio] 0.9 {ratio} Normal [facility] Comment on above: Performed By: #### T SH, LIPID, T4, FT3, CMP #### [facility] [address] [place] [address] Dr. Alicia Patel ALP [Catalytic activity/Vol] 75 U/L Normal 46-116 [facility] Comment on above: Performed By: #### T SH, LIPID, T4, FT3, CMP #### [facility] [address] [place] [address] Dr. Alicia Patel ALT [Catalytic activity/Vol] 31 U/L Normal 16-63 [facility] Comment on above: Performed By: #### T SH, LIPID, T4, FT3, CMP #### [facility] [address] [place] [address] Dr. Alicia Patel Anion gap [Moles/Vol] 14.4 mmol/L Normal [facility] Comment on above: Performed By: #### T SH, LIPID, T4, FT3, CMP #### [facility] [address] [place] [address] Dr. Alicia Patel AST [Catalytic activity/Vol] 23 U/L Normal 15-37 [facility] Comment on above: Performed By: #### T SH, LIPID, T4, FT3, CMP #### [facility] [address] [place] [address] Dr. Alicia Patel Bilirubin [Mass/Vol] 0.5 mg/dL Normal 0.2-1.0 [facility] Comment on above: Performed By: #### T SH, LIPID, T4, FT3, CMP #### [facility] [address] [place] [address] Dr. Alicia Patel Calcium [Mass/Vol] 8.8 mg/dL Normal 8.5-10.1 [facility] Comment on above: Performed By: #### T SH, LIPID, T4, FT3, CMP #### [facility] [address] [place] [address] Dr. Alicia Patel Chloride [Moles/Vol] 110 mmol/L Critically high 98-107 [facility] Comment on above: Performed By: #### T SH, LIPID, T4, FT3, CMP #### [facility] [address] [place] [address] Dr. Alicia Patel CO2 [Moles/Vol] 24.2 mmol/L Normal 21.0-32.0 [facility] Comment on above: Performed By: #### T SH, LIPID, T4, FT3, CMP #### [facility] [address] [place] [address] Dr. Alicia Patel Creatinine [Mass/Vol] 2.41 mg/dL Critically high 0.70-1.30 [facility] Comment on above: Performed By: #### T SH, LIPID, T4, FT3, CMP #### [facility] [address] [place] [address] Dr. Alicia Patel EGFR-AF TUNISIAN 32 mL/min/1.73m2 Critically low >=60 [facility] Comment on above: Performed By: #### T SH, LIPID, T4, FT3, CMP #### [facility] [address] [place] [address] Dr. Alicia Patel EGFR-NON AF TUNISIAN 26 mL/min/1.73m2 Critically low >=60 [facility] Comment on above: Performed By: #### T SH, LIPID, T4, FT3, CMP #### [facility] [address] [place] [address] Dr. Alicia Patel Globulin (S) [Mass/Vol] 3.6 g/dL Normal [facility] Comment on above: Performed By: #### T SH, LIPID, T4, FT3, CMP #### [facility] [address] [place] [address] Dr. Alicia Patel Glucose [Mass/Vol] 72 mg/dL Critically low 74-106 [facility] Comment on above: Performed By: #### T SH, LIPID, T4, FT3, CMP #### [facility] [address] [place] [address] Dr. Alicia Patel Potassium [Moles/Vol] 4.6 mmol/L Normal 3.5-5.1 [facility] Comment on above: Performed By: #### T SH, LIPID, T4, FT3, CMP #### [facility] [address] [place] [address] Dr. Alicia Patel Protein [Mass/Vol] 7.0 g/dL Normal 6.4-8.2 [facility] Comment on above: Performed By: #### T SH, LIPID, T4, FT3, CMP #### [facility] [address] [place] [address] Dr. Alicia Patel Sodium [Moles/Vol] 144 mmol/L Normal 136-145 [facility] Comment on above: Performed By: #### T SH, LIPID, T4, FT3, CMP #### [facility] [address] [place] [address] Dr. Alicia Patel Urea nitrogen [Mass/Vol] 32.0 mg/dL Critically high 7.0-18.0 [facility] Comment on above: Performed By: #### T SH, LIPID, T4, FT3, CMP #### [facility] [address] [place] [address] Dr. Alicia Patel Urea nitrogen/Creatinine [Mass ratio] 13.3 mg/mg Normal [facility] Comment on above: Performed By: #### T SH, LIPID, T4, FT3, CMP #### [facility] [address] [place] [address] Dr. Alicia Patel T4on 11-06-2022 T4 [Mass/Vol] 7.90 ug/dL Normal 4.50-12.10 [facility] Comment on above: Performed By: #### T SH, LIPID, T4, FT3, CMP #### [facility] [address] [place] [address] Dr. Alicia Patel TSHon 11-06-2022 TSH 0.263 uIU/mL Critically low 0.358-3.74 0 [facility] Comment on above: Performed By: #### T SH, LIPID, T4, FT3, CMP #### [facility] [address] [place], [place] [address] Dr. Alicia Patel URIC ACID SERUMon 11-06-2022 Urate [Mass/Vol] 7.3 mg/dL Critically high 3.5-7.2 [facility] Comment on above: Performed By: #### T SH, LIPID, T4, FT3, CMP #### [facility] [address] [address] [address] Alicia Patel Pre-Certification Formon Pre-Certification Form [id number]#[id number]:127 Normal [facility] ECHOCARDIO M/2D COMPLETEon 0 10-26-2022 ECHOCARDIO M/2D COMPLETE Patient: VICTORINO SMYTH Exam Date: 10/26/2022 : 1940 Gender:M Ordering : IRIS CORONEL Admission #: [id number] Family : DR TRAY ALFARO . Order #: [id number] CLICK HERE TO VIEW EXAM ECHOCARDIOGRAM REPORT [...] Ksenia Glasgow M.D. on 10/28/2022 at 13:02 [facility] RAD - MISCon 10-25-2022 RAD - MIS [id number]#1.00CD:127 Normal [facility] XR KUB 1 VIEWon 10-22-2022 XR [...] by: TYLER MONSIVAIS Date: 2022-10-22 09:12 Normal [facility] RAD - Ultrasound Reporton RAD - Ultrasound Report [id number]:127 Normal [facility] US KIDNEYSon 10-18-2022 US KIDNEYS EXAMINATION: US [facility] HISTORY: Kidney stone COMPARISON: Ultrasound kidneys 09/01/2022, [...] by: TESS FORD Date: 2022-10-18 07:04 Normal [facility] IntraOperative Documentson 0 10-15-2022 IntraOperative Documents [id number]:127 Normal [facility] BNPon 10-14-2022 Natriuretic peptide B (Bld) [Mass/Vol] 300.0 pg/mL Normal <=1,800.0 [facility] Comment on above: Performed By: #### T SH, LIPID, T4, FT3, CMP #### [facility] [address] [place] [address] Dr. Alicia Patel CBC AUTO DIFFon 10-14-2022 BASO # 0.0 103/ul Normal 0.0-0.1 [facility] Comment on above: Performed By: #### T SH, LIPID, T4, FT3, CMP #### [facility] [address] [place] [address] Dr. Alicia Patel Basophils/100 WBC (Bld) 0.6 % Normal 0.2-2.0 [facility] Comment on above: Performed By: #### T SH, LIPID, T4, FT3, CMP #### [facility] [address] [place] [address] Dr. Alicia Patel EO # 0.2 103/ul Normal 0.0-0.7 [facility] Comment on above: Performed By: #### T SH, LIPID, T4, FT3, CMP #### [facility] [address] [place] [address] Dr. Alicia Patel Eosinophils/100 WBC (Bld) 4.6 % Normal 0.9-7.0 [facility] Comment on above: Performed By: #### T SH, LIPID, T4, FT3, CMP #### [facility] [address] [place] [address] Dr. Alicia Patel Erythrocyte distribution width (RBC) [Ratio] 14.2 % Normal 11.0-15.0 [facility] Comment on above: Performed By: #### T SH, LIPID, T4, FT3, CMP #### [facility] [address] [place] [address] Dr. Alicia Patel Hematocrit (Bld) [Volume fraction] 36.1 % Critically low 42.0-54.0 [facility] Comment on above: Performed By: #### T SH, LIPID, T4, FT3, CMP #### [facility] [address] [place] [address] Dr. Alicia Patel Hemoglobin (Bld) [Mass/Vol] 11.8 g/dL Critically low 14.0-18.0 [facility] Comment on above: Performed By: #### T SH, LIPID, T4, FT3, CMP #### [facility] [address] [place] [address] Dr. Alicia Patel IG # 0.03 10e3/ul Normal 0.00-0.03 [facility] Comment on above: Performed By: #### T SH, LIPID, T4, FT3, CMP #### [facility] [address] [place] [address] Dr. Alicia Patel IG % 0.6 % Critically high 0.0-0.5 [facility] Comment on above: Performed By: #### T SH, LIPID, T4, FT3, CMP #### [facility] [address] [place] [address] Dr. Alicia Patel LYMPH # 1.1 103/ul Critically low 1.2-3.8 [facility] Comment on above: Performed By: #### T SH, LIPID, T4, FT3, CMP #### [facility] [address] [place] [address] Dr. Alicia Patel Lymphocytes/100 WBC (Bld) 22.6 % Normal 20.5-60.0 [facility] Comment on above: Performed By: #### T SH, LIPID, T4, FT3, CMP #### [facility] [address] [place] [address] Dr. Alicia Patel MANUAL DIFF REQ NO Normal [facility] Comment on above: Performed By: #### T SH, LIPID, T4, FT3, CMP #### [facility] [address] [place] [address] Dr. Alicia Patel MCH (RBC) [Entitic mass] 33.2 pg Normal 25.9-34.0 [facility] Comment on above: Performed By: #### T SH, LIPID, T4, FT3, CMP #### [facility] [address] [place] [address] Dr. Alicia Patel MCHC (RBC) [Mass/Vol] 32.7 g/dL Normal 29.9-35.2 [facility] Comment on above: Performed By: #### T SH, LIPID, T4, FT3, CMP #### [facility] [address] [place] [address] Dr. Alicia Patel MCV (RBC) [Entitic vol] 101.7 fL Critically high 80.0-94.0 [facility] Comment on above: Performed By: #### T SH, LIPID, T4, FT3, CMP #### [facility] [address] [place] [address] Dr. Alicia Patel MONO # 0.7 103/ul Normal 0.3-0.8 [facility] Comment on above: Performed By: #### T SH, LIPID, T4, FT3, CMP #### [facility] [address] [place] [address] Dr. Alicia Patel Monocytes/100 WBC (Bld) 13.8 % Critically high 1.7-12.0 [facility] Comment on above: Performed By: #### T SH, LIPID, T4, FT3, CMP #### [facility] [address] [place] [address] Dr. Alicia Patel NEUT # 2.9 103/ul Normal 1.4-6.5 [facility] Comment on above: Performed By: #### T SH, LIPID, T4, FT3, CMP #### [facility] [address] [place] [address] Dr. Alicia Patel Neutrophils/100 WBC (Bld) 57.8 % Normal 43.0-75.0 [facility] Comment on above: Performed By: #### T SH, LIPID, T4, FT3, CMP #### [facility] [address] [place] [address] Dr. Alicia Patel Platelet mean volume (Bld) [Entitic vol] 10.1 fL Normal 9.5-13.5 [facility] Comment on above: Performed By: #### T SH, LIPID, T4, FT3, CMP #### [facility] [address] [address] [address] Alicia Patel PLT 160 103/ul Normal 150-450 [facility] Comment on above: Performed By: #### T SH, LIPID, T4, FT3, CMP #### [facility] [address] [address] [address] Alicia Patel RBC 3.55 106/ul Critically low 4.70-6.10 [facility] Comment on above: Performed By: #### T SH, LIPID, T4, FT3, CMP #### [facility] [address] [place] [address] Dr. Alicia Patel WBC 5.0 103/ul Normal 4.0-11.0 [facility] Comment on above: Performed By: #### T SH, LIPID, T4, FT3, CMP #### [facility] [address] [place] [address] Dr. Alicia Patel Coding Summary.on 10-14-2022 Coding Summary. CD:[id number] Ww+PGh lYWQ+FM8HQYPgH51aqWKdyA5jR 0NMTElOSywgQVBQTElOSyIgbmF uIX1wxBEvGOCw IC8+OS8iKKVcWifprVMas5H0nL G9H88fpg2aQHnekRK1MBIpIgUz lnpvl9gdbRl7TSmxXptpHxXy WVRnsP24APT8nP69Yz98iGSfgF Uxv9tbrNw8ZnErMEXyYSF5gBfr CXxud8WwMSTyA10onKVls9U0 ODGwjFguaQNvOaYrzZY0pS6yKQ ztetuhc0ddmztzPzx6oa90gYKc w0Y6pHM2Y6MyeaJ1WJOhlWTt FyquaMIBbO8qwtcom2ncnvlpLq XfPKPxMUz9FLz9VCTydQtlYhGp ZT89LYY8MLZfhvDoU6IdLIJu uStmQpM1o3W0Er5PF6WCLuqtM1 VNTUFSWTwvdGQ+RD71qs51D9Uo QkmkZur7CMCvBXG8hUU2eK2u ISTmUArft1P9gHU6J0SvapEpvh 0ov2ozJTUrFFmqR05okOTvw2J3 QIZvwNC7FJZzpPiyObBvgP48 Oyc+SZKbmBidb6ExMfhvq2efy7 cnoIy3MoblQWPducMzvKbhUMM5 g5EmLf9jWQVhwWH1oFB6dR2f DgBpWqF7JGalM218ItFxoQNrWf qgX81tL7MxdLZ+IAUuHcw3YCDx zWosKY5uF9RbWRCcvuvjsXDr fOboKL8aAHBvppguLNNhjZ3mIW TyM1u5UkXiLiU2VJolU5BlZKTg zkkdHs03bG3qVgDwFcO2RAdv F4ChtpW2KLJwfTMtBAkaHIF2N8 1ky2E0XHGxIJXtVAG8uKG8lT3t bGlnbjogbGVmdDsgdmVydGlj OTfeUCirI924AGUbhMksKzOwLS luZyBEYXRlOiAgMDQvMjAvMjAy MzwvdGQ+VOSaLRG2tUiuUQQd jIZjDFjjAl9ydQffoOcmTK6fQZ RkufzhYJWpdC0cRYJsqOJajVfd IM3kPQNrgxzdz572ClWvOUO6 UZAghEEhJ2UovI0bRrLaKRCsZO VqR2KyxFVrGLxmB096RIdpFuO4 KOObnjNeZ8LjPRDqgRtgCpP2 j1F1Sg3Uv9RzqakuO5WtaKSpKa CnSolxFKi9Z8LjInngqRE+PC90 CYOaLM57OXk3TUZ4dWzmCPwo OMWnV7WijV1nSgSoIEMxXOGuZa c+PHRhYmxlIHdpZHRoPScxMDAl MqFbbTpfWV9dEy4kVYIyPTAd mZdppANwNwJlg0ywPWWoRUeaFE 9xrOzlZ3FauIB9DAGyl0l5Qm79 F72tS7CcgOD+JMNgbGO4rLO1 aK9yRqIpXjV7VYypL912PiUzfJ TlQoouy6nqc1mlfXk8XkP2ZFDh dbNlaWcfDOM8t9WtJc06Q50q IHdpZHRoPSIxNSUiIHZhbGlnbj 1hjN4bWa4+YTJjcNV5tHF8lW1b BdMdFhJ1VOncF782OuVvfRRi Vkgcb3rci6xeaFc0MgKeKAAmex VznWsyBGG9c8HeXh80P5EmjEoh a1XsUwq1xm61mGNuj3E6rIJ9 B3IyWVPjirklnRMeqQlgZY4iDW PswlzxBECznD2fFNTsC3j7QyYz VoE7BWmfW1BamvI3ELTrrVTy NHUwsDNLiI0ywvzjt3yshgwcJi RoKOPrLAk5QHh2HKCbtPsmYaPz ALF2PoV3QKK3bNLjvB0vcGps xmjarQ9mGjs+WKZ7eTImbEGHDZ 1lOjwvdGQ+VBXyRMG2xYwvBDct AMRymE0sIRXlT6v3OdPrRnM3 ZIawS3RfodH0SSUcmSSxBJTneO PCsH8bynbcv8szwhahVrZnRVEe UCu9EDu6TQXmkZjqJsOzORT0 NqK6XTG1mRWmeY8paCrpjxdhlO 9wOyc+RdbnpUziBGN6ZAj3V5Sz Hxy8WUIraYncJF6mwGDgDKth Hh6evGhxpVpbLK9tKGBqhxkqz7 30TaRyh4ndVLZvdVMnVNyaSFN3 V99lh2Q4QRInGOWhFXK7sME4 nT0kiXafjjhryEUxoYiyitVkwV vbCDciCChyU718VJTdhAnzFzCy KHk2E5OdHsq9YEJyuOpfUH7i jEPhVHhrEi7pnQmrdVkfOT0uXW Villbwd362BmOpr3liXWPchFJy BWqsUND3X63ui8J3KWHnRKLe KXT6yTF3bP3gnNlnkjfcgVBziD rbnqWjcKjaODwrXHwfY480JHEc oExjSyFnzZv5V0GmWzd4KCCx hFlvXZ4fgGPkYIosZb1peWihxG qiKL3lHCFcujtvm246EhEtf2rc WNJbhQNbCMpnABE8V83jg3K5 YHIjTSIiYWU7mMB3xS9ntXmktg ogbGVmdDsgdmVydGljYWwtYWxp A373LKKoePrdYbCzuHqkhsEs DFhfNWx0Z6DwYgfcaEJ+PC90YW GrMY47mSHspONxh7uihLw9VdTy OCIuXKJ2yZjrLOgih0XkYCNi X72zyROdu3B3YPQwdIiwrMDsXl GcuWH1cT5oKIsqknmee7xjtlyc Fzwav4hfpr01bN87O14gTGve EQBzAWYeCDMhRKOvxOhrft1eiF 9wIi8+SARgoZM8kSY5xL3sNVUo GlL8WPuaR917IqFhyZPrLbiu o8bor8vyrWo3AdZ7UAGwxmWbsE lrRAV0z6ArXt98A52tOXwhTXTp KLAiIOXbLAQvqKkski6pfY3j Ii8+NEAerCM6cKQ5wY9qFuYmMg V4KCyyZ180PrZarXTeAkctT03e Y9JkqQI+ZMXgEae3DECuhDrc XW6aoEFvCHeuUy8rKWG6EdZxSa AeNUyfH6MwZZDlkyunhrucrXR9 YCIaQAFbsL69Do1ulKweUHXt uSVDbB7mxwdiq2lgirfsUcZpQY JfKYo0DMn4PLNypExhZmOeXGS9 LcZ7DTV2mPOtcT2zoOyahjwf oX7uJ2JyQGAyeajuTb83rH0cUz FlGxD9AHpeGzv+EJSGMA0BGfii CcDDWgTFVZPGMV18AT50iXOv h1A5zXT6X2EmXGNpzswjmjxzjC T6LGFjHWDszU21pNNlJTpwHu3b c2B8j885MGRbGVMqoR16Ev4o nHreCHBouVACvM2brtzqq1vmpg wvEsJaOXYsOUj1NTx4DHObhKzb NkOdZUL5OkF6ARF5hZIobG5h mIommuuiaG6sAxa+MDIvMDQvMT e2FmvtoGL+KKAbLBA6pCqoKKah ELAosD3hMNBgA4b4VhMjXcC5 GSjgF4NiBGNvnimlZm73xV4wDn XzZhF0AXtxU6PyvkW2AZIqzUWv ECusWHG3R16sz4N0HJQiNBMi IMM1wEE2jF9uuWbzhlsqnCTyrP utntBqhLvtAIorODnxZ293LCKs qJmcQylwRGznQTFyMJ21ZL91 aDXyf1M2vMF7N7SwCXBojxxspa uzcQR1DDZdNUBrvO09sTAxHVdq Hf2or0U9x481ELKhFILkqH05 Ba1ubAhaKIGcnZZNkD9bwpseo7 fnmbknXmXuQVRcORh0OEd6QEXj zGgtYqVaUQD7WyH0QWE0lQDa qO4ezZiefgtkpS4aHoq+TWFsZT wvdGQ+QHVeORW3kOzpZCswCNAx vB5kNIGaO4v9JlNqSxQ0GDem B7OnOYXiyebjLt19yE3hTePpSu A8NEfoV2UlpzC8ALJfnEGtOSgh OEP7V52sb2Q1XZOxNNVyJOQ0 qGA6bM4kuVixipvyrWChzWiyvv EenRlqKGazVHtqD627DMFhaGny AeUbEyFoXIAjgctgO5PwUXEV SAscC0NnV6ImhRsngRZ+PC90cj 98S3QhEplsAod7IYBhZBT4fLP2 lZ5yFUUiUQwpy6J6xVC0T9Ma ubKlhb9ai5nqVNWkSFfqS11rlE Jxz4J4VUEikFY5SNAbcGovTlZl nU84Lhk+TETqwKcwh7FpOsuw g3mnu3tchMl3RpXlJQUbhdPpaZ fiWVE3z2HeOv56W06pBKoqOZEq NUEfXHIoIQLnvWbbvt7noM3y Ii8+QRCxfTZ7eYK8rG6xFgBnOv N8XHjlG691SaRgsUBkWbavk7kt q9ruaYt7FeItKTXteaVttSeu GED9f3PgOe68F3XwtHywz5ZtSc e6fx07eLOjt7K7tWU2H5UoOZJf pgrzqKFmzAjpGJ6uHHEiexmg HTIbyB9qQRVgT4d5NzOaLbO1PF mfQ9YsljZ9DEAdiRUjBPSnbPNK kS6rnwbwn2xtwahuPxVoERDw YGs2XHt0MEHuoVzjTiOgBRQ5Bb I6XMI4bUUssY3hqWxsmzfytH0x Oyc+WBz0q2hzyEFrBF4plLO0 OL55AI87mCCve7J7fIL8Y5XiUW OvjagieopasLM8FAUrUDVksB12 Vk9acJdkDh8eMGNpHWX5PSHw oAFbA0CruF4gZzUqOFMuHDBfC8 GjnIYsPIuvH727GExuCiN5PREu szDnR8ZgIXJngBwzRyZ1w5L8 Uy9TBD79XP15GG64jQKlq5T9nE D5H1LfNQShigcwojpnmXV6RIQs YWNpaM10Oe5ffNrdZh4wNKJc NHU8ACXqnSDmJ0KbrQ3pCbZaNY OxJIOhF7DzbRFeTTruI413THxr SnC2IXRyywCjH3RiDXQimVaz XpP6t0B9Sc5QTa01QW20OV99oG Qsn9S3pDJ8P6JkHSBfrbfryare vGR1ZBGaYOSazN68Bd4kiRqz Oj7hMYRmFJT7ZCZvfOLnL9YthP 1pDzSrUSLuTURfP0LeaRSsMZhf V596BEutHnN3DWYynmGtJ5Oe SMXzhVntSgS9n7K2Es4PSEubur i6Z0PtGedpqNC+IQ17ARIaKC74 kAJneYLhu9wyiAg5QaLlBRNf EEO4jFwv (more content not included)... Normal [facility] PROF CHEM 8 (BAS METB)on Anion gap [Moles/Vol] 13.9 mmol/L Normal [facility] Comment on above: Performed By: #### T SH, LIPID, T4, FT3, CMP #### [facility] [address] [address] [address] Alicia Patel Calcium [Mass/Vol] 8.3 mg/dL Critically low 8.5-10.1 [facility] Comment on above: Performed By: #### T SH, LIPID, T4, FT3, CMP #### [facility] [address] [address] [address] Alicia Patel Chloride [Moles/Vol] 108 mmol/L Critically high 98-107 [facility] Comment on above: Performed By: #### T SH, LIPID, T4, FT3, CMP #### [facility] [address] [address] [address] Alicia Patel CO2 [Moles/Vol] 23.5 mmol/L Normal 21.0-32.0 [facility] Comment on above: Performed By: #### T SH, LIPID, T4, FT3, CMP #### [facility] [address] [place] [address] Dr. Alicia Patel Creatinine [Mass/Vol] 2.41 mg/dL Critically high 0.70-1.30 [facility] Comment on above: Performed By: #### T SH, LIPID, T4, FT3, CMP #### [facility] [address] [place] [address] Dr. Alicia Patel EGFR-AF TUNISIAN 32 mL/min/1.73m2 Critically low >=60 [facility] Comment on above: Performed By: #### T SH, LIPID, T4, FT3, CMP #### [facility] [address] [place] [address] Dr. Alicia Patel EGFR-NON AF TUNISIAN 26 mL/min/1.73m2 Critically low >=60 [facility] Comment on above: Performed By: #### T SH, LIPID, T4, FT3, CMP #### [facility] [address] [place] [address] Dr. Alicia Patel Glucose [Mass/Vol] 74 mg/dL Normal 74-106 [facility] Comment on above: Performed By: #### T SH, LIPID, T4, FT3, CMP #### [facility] [address] [place] [address] Dr. Alicia Patel Potassium [Moles/Vol] 4.4 mmol/L Normal 3.5-5.1 [facility] Comment on above: Performed By: #### T SH, LIPID, T4, FT3, CMP #### [facility] [address] [address] [address] Alicia Patel Sodium [Moles/Vol] 141 mmol/L Normal 136-145 [facility] Comment on above: Performed By: #### T SH, LIPID, T4, FT3, CMP #### [facility] [address] [place] [address] Dr. Alicia Patel Urea nitrogen [Mass/Vol] 36.0 mg/dL Critically high 7.0-18.0 [facility] Comment on above: Performed By: #### T SH, LIPID, T4, FT3, CMP #### [facility] [address] [address] [address] Alicia Patel Urea nitrogen/Creatinine [Mass ratio] 14.9 mg/mg Normal [facility] Comment on above: Performed By: #### T SH, LIPID, T4, FT3, CMP #### [facility] [address] [place] [address] Dr. Alicia Patel TROPONIN, HIGH SENSITIVITYon 10-14-2022 HSTROP 9.6 pg/mL Normal 4.0-76.1 [facility] Comment on above: Result Comment: CUT- OFF POINTS HAVE BEEN ESTABLISHED BASED ON THE FOURTH UNIVERSAL DEFINITIONS OF MYOCARDIAL INFARCTION. THE UPPER REFERENCE LIMIT (URL) OF TROPONIN, DEFINED THE 99TH PERCENTILE OF cTnI DISTRIBUTION IN A REFERENCE POPULATION, HAS BEEN CONFIRMED THE DECISION THRESHOLD FOR VT DIAGNOSIS. Performed By: #### T SH, LIPID, T4, FT3, CMP #### [facility] [address] [place] [address] Dr. Alicia Patel Main OR Intraoperative Recor don 10-13-2022 Main OR Intraoperative Record IntraOp Document Type FT Summary Primary Physician: Ni OLIVARES MD Finalized Date/Time: 10/13/22 15:17:44 Pt. Name: VICTORINO SMYTH/Sex: 1940 Male Med Rec #: [id number] Physician: Ni OLIVARES MD Financial #: [id number] Pt. Type: A Room/Bed: 06/ Admit/Disch: 10/07/22 09:01:16 - 10/07/22 17:40:00 Institution: [...] Role Performed Anesthesiologist of Surgeon - Primary Email Engineer - Primary Record Time In 10/07/22 15:01:00 [...] and tissue Entry 1 Skin Integrity Intact, Bement, Warm, and Skin Abnormality No Dry Outcomes [...] Resting at Side (more content not included)... [facility] Consent for Anesthesiaon Consent for Anesthesia [id number]#1.00CD:127 [facility] Discharge Instructionson Discharge Instructions [id number]#1.00CD:127 [facility] IntraOperative Documentson 0 10-08-2022 IntraOperative Documents [id number]#1.00CD:127 [facility] IntraOperative Documents [id number]#1.00CD:127 [facility] IntraOperative Documents [id number]#1.00CD:127 [facility] Preoperative Documentson Preoperative Documents [id number]#1.00CD:127 [facility] Preoperative Documents [id number]#1.00CD:127 [facility] Preoperative Documents [id number]#1.00CD:127 [facility] XR Abdomen 1 Viewon 10-09-19 XR Abdomen 1 View Exam Date/Time: 10/07/2022 [...] mGy = 0 DAP = 0 Normal [facility] CHEMISTRYOrdered By: Lab ROP User on 10-07-2022 Glucose [Mass/Vol] 101 mg/dL High 55 - 99 mg/dL [facility] POC Subsection Comment on above: Result Comment: Jackelin DUNN POC Device SN [id number] Invalid Interpretation Code [facility] POC Subsection POC User ID [id number] Invalid Interpretation Code [facility] POC Subsection POC Username BEE NORRIS Invalid Interpretation Code [facility] POC Subsection Capillary Glucose POCon 09-25 Glucose [Mass/Vol] 101 mg/dL High 55-99 [facility] Comment on above: Result Comment: Jackelin DUNN Performed By: #### [id number] #### [facility] [address] [place] [address] Consent for Procedure/Surger yon 10-07-2022 Consent for Procedure/Surgery [id number]#1.00CD:127 Normal [facility] Consent for Treatmenton 09-25 Consent for Treatment [id number]#1.00CD:127 Normal [facility] H&P Updateon 10-07-2022 H&P Update [id number]#1.00CD:127 Normal [facility] Inpatient Patient Summaryon 04-13-2023 Inpatient Patient Summary [address] [address] [facility] Clinical Discharge Instructions PERSON INFORMATION Name: VICTORINO SMYTH [facility]#:[id number] PHYSICIANS Admitting Physician: Ni OLIVARES MD Attending Physician: Ni OLIVARES MD PCP: Erum OLIVEROS, Tray Discharge Diagnosis: Comment: PATIENT EDUCATION INFORMATION Instructions: Post Op Patient Instructions - FT (CUSTOM); Lithotripsy, Care After Medication Leaflets: Follow up: With: Address: When: Ni MARSHALL [address] [place] [address] AVE, [address], [address] [address] Business (1) Comments: We were [...] any other anesthesia procedures. Type Location Start [facility] URO Office Visit [facility] EU Charito 10/29/2022 8:45 AM 10/29/2022 9:00 AM Confirmed MEDICATION LIST New Medications [id number], [address], [place] [id number], [phone] acetaminophen-hydrocodone (acetaminophen-hydrocodone 325 mg-5 mg oral tablet) [...] Capsules By Mouth every day. Comment: Normal [facility] Main OR PACU I Recordon 09-25 Main OR PACU I Record PACU Phase I Docum ent Type FT Summary Primary Physician: Ni OLIVARES MD Finalized Date/Time: 10/07/22 16:21:28 Pt. Name: VICTORINO SMYTH/Sex: 1940 Male Med Rec #: [id number] Physician: Ni OLIVARES MD Financial #: [id number] Pt. Type: A Room/Bed: Admit/Disch: 10/07/22 09:01:16 [...] By: ALESSIA YOON RN 10/07/22 16:21 Normal [facility] Main OR PACU II Recordon Main OR PACU II Record PACU Phase II Doc ument Type FT Summary Primary Physician: Ni OLIVARES MD Finalized Date/Time: 10/07/22 18:36:17 Pt. Name: VICTORINO SMYTH /Sex: 1940 Male Med Rec #: [id number] Physician: Ni OLIVARES MD Financial #: [id number] Pt. Type: A Room/Bed: [facility] Admit/Disch: 10/07/22 09:01:16 - 10/07/22 17:40:00 Institution: [...] By: Eliz Mcbride RN 10/07/22 18:36 Normal [facility] Main OR Preoperative Recordo n 10-07-2022 Main OR Preoperative Record PreOp Document Type FT Summary Primary Physician: Ni OLIVARES MD Finalized Date/Time: 10/07/22 15:12:57 Pt. Name: VICTORINO SMYTH /Sex: 1940 Male Med Rec #: [id number] Physician: Ni OLIVARES MD Financial #: [id number] Pt. Type: A Room/Bed: [facility] Admit/Disch: 10/07/22 09:01:16 - Institution: Case Times [...] 10/07/22 15:12 Aravind Gatica 10/07/22 15:12 Normal [facility] Monitor Recordon 10-07-2022 Monitor Record [id number]#1.00CD:127 Normal [facility] Monitor Record [id number]#1.00CD:127 [facility] Operative Reporton Operative Report Patient: SHERYL [...] placed in the supine position on the Attender litho-Star lithotripsy table. Under C arm fluoroscopic imaging the stone was actually visualized. Therefore it was not indicated to proceed with a cystoscopy and retrograde pyelogram. Per protocol a total of 3000 shocks are given up to level 3.5. There was a pause at 200 shocks. There appears to be stone fragmentation. He tolerates it well. He is transferred to the rkipton and then back to PACU in satisfactory [...] patient's that he needs to contact his cab starter and/or Dr. Jose Alfaro to arrange for possible further follow-up regarding this. She was in agreement with the plan.. Estimated Blood Loss: 0 ml. Complications: None. Anesthesia type: General. [facility] Comment on above: Result Comment: Elec tronically Signed By: Ni OLIVARES MD\.br\Date and Time Signed: 10/07/22 15:51 EDT Outpatient Surgery Discharge Instructionon 10-07-2022 Outpatient Surgery Discharge Instruction [address] [address] Patient Discharge Instructions PERSON INFORMATION Name: VICTORINO SMYTH Date of : 1940 Current Date: 10/07/2022 16:31:30 PHYSICIANS Admitting Physician: Ni OLIVARES MD Discharge Diagnosis: LM SMYTHDANYELLE Adams has been given the following list of [...] Follow up: With: Address: When: Ni OLIVARES [address] [place] [address], [address], [address] [address] Business (1) Comments: We were [...] other anesthesia procedures. Type Location Start [facility] URO Office Visit [facility] EU Charito 10/29/2022 8:45 AM 10/29/2022 9:00 [...] to serve you. Thank you for choosing [facility] HERE ARE THE MEDICATION CHANGES THAT OCCURRED DURING YOUR HOSPITAL STAY New Medications [id number], [address], [place] [id number], [phone] acetaminophen-hydrocodone (acetaminophen-hydrocodone 325 mg-5 mg oral tablet) [...] Lithotripsy, Care (more content not included)... Normal [facility] Patient Education - [employer] 0 10-07-2022 [...] these instructions at home: Medicines ? Take ismf-bmb-pjebqhj and prescription medicines only as told by [...] help ri (more content not included)... Normal [facility] Progress Note-Physicianon Progress Note-Physician Patient: VICTORINO SMYTH Age: 82 years Sex: Male : 1940 Associated Diagnoses: None Author: Timothy Pittman MD Postoperative Information Postoperative disposition: Postoperative disposition: To PACU. Optimetrix number: Optimetrix number [id number]. Anesthetic utilized: General. Physical Examination Vital Signs [...] meets criteria ( To home ). Normal [facility] Comment on above: Result Comment: Elec [...] Problems Acute kidney failure / SNOMED CT 79807878 / Confirmed Anticoagulated / SNOMED CT 754228413 / Confirmed BPH associated with nocturia / SNOMED CT 5026529938 / Confirmed BPH with urinary obstruction / SNOMED CT 3960868494 / Confirmed Chronic obstructive pulmonary disease (COPD) / SNOMED CT 53683976 / Confirmed Coronary artery disease / SNOMED CT 63213392 / Confirmed DM (diabetes mellitus), type 2 / SNOMED CT 039197931 / Confirmed Elevated PSA / SNOMED CT 3120829638 / Confirmed Erectile dysfunction / SNOMED CT 2644207925 / Confirmed Flank pain / SNOMED CT 691771450 / Confirmed H/O: hypothyroidism / SNOMED CT 543677893 / Confirmed Hydronephrosis / SNOMED CT 98133091 / Confirmed Hydronephrosis with ureteral calculus / SNOMED CT 5424642591 / Confirmed Hyperlipidemia / SNOMED CT 51720947 / Confirmed Hyperplastic colon polyp / SNOMED CT 1157986037 / Confirmed Hypertension / SNOMED CT 6513017941 / Confirmed Kidney stone / SNOMED CT 313411796 / Confirmed Myocardial infarct / SNOMED CT 03441875 / Confirmed Occult blood in stools / SNOMED CT 42157753 / Confirmed Postprandial diarrhea / SNOMED CT 41358004 / Confirmed Prostate cancer / SNOMED CT 7908241743 / Confirmed Rheumatoid arthritis / SNOMED CT 383291864 / Confirmed Ureteral stone / SNOMED CT 80313273 / Confirmed Urinary retention / SNOMED CT 123476056 / Confirmed, Active Problems (24) Acute kidney [...] Mean Kayce (more content not included)... Normal [facility] Comment on above: Result Comment: Elec tronically Signed By: Toya OLIVEROS, Timothy Motta\.br\Date and Time Signed: 10/07/22 16:52 EDT Coding Summary.on 09-22-2022 Coding Summary. CD:[id number] Ww+PGh lYWQ+TX1GBVXdN79btOOnvV7hY 0NMTElOSywgQVBQTElOSyIgbmF lLY3tzQQjJNTe IC8+PS6wDKXeRsedcFSpi6N9pV B5M14ppx9qSBrwwET8VTWzNvWt huulj1kwfDa8ESppFkrfZxIl LVIpmV16PYH3qN92Du35aILskF Dku4dlzJd6RzDnOFZvMDF6gRfg TFeea7FrXJRvE70uwTAyp5F8 HWRiuQbxpYSjPcOawFZ9oW3aHZ bfnqhpb0izarquAfe4it50sFXd c6T0zMH5H2TvbjD8LVSfdYLl BxzdgWSUtB8bvygvf8nvurowZt NfRWMuAAm6WZz5ZEFzdOgqLrMw SF39AYH5ERCikzYsG7OjAVZg jMkrBmT3k4C2Xg7WK5NVBwopD8 VNTUFSWTwvdGQ+QR19tc34J4Mv YdieZnr6TBBzHQN7hBV2oA3l IJJqDWcpv9M0vVE2J4PzdwZawa 2lc4tkDSZgCMpkJ83qlKNhg8N3 HIPegGP8XUHzrMeyXyMafR55 Oyc+SUWdxPdjm0OyRjoii8civ6 iknVy4TzyhNEFwabEqxDeaODB3 i8WgYo8dPHXbmRU0yCA0yI2g JcKxFeS2SLusX569LzBgdXIlMr vqO50rN8NwyMA+VUAyXdk9OWRx aQwnUH5gR9KbZQMqipkblKLt uDmaLK1rDXGqulwiQWWjuW8zLQ WoY4q4VwOxFxD7VEgyD4XsUKGc rzdqMm77dC7iUaOkHgU4TPrh R6OarlA9VBYnwGOdEOtlXJR1V4 7pb3C2VFPrCBShIPV2oOK6kD3a bGlnbjogbGVmdDsgdmVydGlj TQyqPVieA133MJBtgAyvKcRwVZ luZyBEYXRlOiAgMDMvMjkvMjAy MzwvdGQ+XVUvIFD5nClnNVFv iXGvRWcdCc6jgQyjwIpcFC2aWC CxawsyTKGuzV1gZNXzdWHlxPgi TQ5lSRFqiczmy300LjMlBWF1 YRJadPRvQ1YklQ8jYpYeAWFaBG NeY9BcaEQuOWqdQ373WLiiNsR3 QYReskAmI7BcTXHrhTpkPiG4 v2Q0Vm7Eu2YywditF4AakLSyIx LbCscyAEu7X3CyPervrTB+PC90 JTRjHY87RYa5SJN4pEqpWIjp YBJsO6SxcX4iWkHuNIPgXSPsPr c+PHRhYmxlIHdpZHRoPScxMDAl VgFmtFqgJL2aVs9bKMBuBMUa sLahkKZrAcEpx5bsXMZeRTqpOH 5rySxsJ6HrdUN5VZMun8l9Cn36 N05gX2VbtTG+ROExhUO5yQV7 mL2uNqVdAlX2LWgcC090XbUxzR QuNpylg8kdz2icoDg3YzY2WOIm dmYkpIlrACF9a4HrBq73F87y IHdpZHRoPSIxNSUiIHZhbGlnbj 0auL5xYq4+HIJztBZ5kHD5fH5x SfSuQeS3IQqcS417MbBprXOb Alcal7van5gikYk3ZtExCTVypi IiaLrxNOR7u1NfVp18P2MvhTev b8GrSci2yp97tAFjq8J3iHE8 E6PiRVIhkxowbAUjiPxiTO9uJH XftpplWFUrgW3vKNTsB7w2YgHx DeX7EEyjP5XujuD9KEThfWYp FKZssGGCjB1ybzyca5pbhuitBr ZjMUCvUSt8HOd7QHMtrIhuHeLg KDC9GyK2HGK3oIQrtX2hzLld eyxzpA6kJil+HQV5nVHdyHETGS 1lOjwvdGQ+FPQvNTU9tDqgKKck MPOibA9tKOMpX0r7BdQpLqT2 IRjnF6XxkkH0JLQhoGXvEKBhcG DIaI0hmmlyc3xokxabZoIrWWRx DOe1TIz5LPKsuLucRuCdFJD3 YaH8ZST3iQGnaP8ntFzfsjlihV 9wOyc+GfnnrHbfFFD8YIg7S7Li Xok4MTNhnChgRK9vfYFpHXfe Vn0wpQeeiUenSH9rNTVbpwdxj6 51DxTga6cjCQGogIRrFRwhCLF6 W14is8G8BTOyHWVbZFR4tBG1 rN4ufWvrkhegsOVeuXpuylYkjB twWQgzMCjxI834DVGkbGivKpKj EMr5L7EcBbz1YXUdgFbbYD9v tSNvNYwfGv9raMhueXlyMR0gFT Ullygwg803VvOsl3mkDDMgmPDn RTzpZXJ5X46tq4D7LXItMPSw JSE5rFV3wB2knEpyueicaFXqaY pcbvLviPwuEIgjGWnsM852WPNr wZokGbOevTm5M3FtZwo6UXBq uNefWR2cjXVvEFzlUd1fcCjdpB xzKB7gREYlomklj467UkGla7mv OOXtkIJwNLuyGEZ9V00uz1D4 VIOwYPPfTHR6jCR7oH6gsLpomz ogbGVmdDsgdmVydGljYWwtYWxp N426JYPkxSlnIsJriMwdzjJu LKviWZf9T4IpTuomtIG+PC90YW OmOT05gMUmoPCnj2ihoSr9TpCc UJBpRTH0zNbkJXxis2KrVRBh Y29ptTCcj9M7AMSnhWkruJGvBc FziVK1yB5hGIqilmefg4sctpol Vtdqx5gtnz95tU17M13dFKvt LSGyIDAoXQHqFTYikGaztd1fwA 9wIi8+ATZjgII0bLS3tE3fVTSi HeQ3STzlP045DkErlSDpKgtj z2uiy7tluCd6BuH0TOCazpVlbW fzIHB9u9ExTl60B38xLWvtIYFe KEYeSUNdILEpdJhefq6lpG8m Ii8+WWVipFV8vGQ5oV8qJnDuEk Q1FWbeA995TtMqhIKhIdhiE43m C0VuaEC+NFSgXgj6BKWdhAja EM0diPQpYVswJm8cOAP8RuOwAq RwHVwxJ2VhTPDnwsappnxzmXW5 MDGfWUJvyF73Bk2ksIbdIOPn sTSHcI2kpqbkx8zfvfjdEzKhYD HqZYu8KLd1FFIpaExyRtMvRHK6 FwX9LLQ5nYZdhQ8gkCqmvcsj oN6nG8JbIKKrfjqzLz56bL5uBg MrVrP3IQxdZut+QUKXIK1XXupi IkOFFaURKNRXZM57OJ90lMJj b3Y2fNL5L4RwPOTaaclykhbozC T2MVYwQSLxdG34cWQrAUakVs5f r6X5b484ZEQvDPLagO82Eh2s kLuoPLVpdLXXnJ1dwbsro9wtry woPuDwIXWjMDy8VNx2MOApkMvx UfOrNOE7FjK5PMI8aUBuqF2z tGjxbhjalZ0nOjk+MDIvMDQvMT l3QgawgXB+CFKkSXO6bDtcRHdj SCYkwN9sFMRbP3w1MmOmTwK1 WOjfZ0VgGZPcjwmtFe77sP7yIf FuZzQ0KDebU3GgnmC6HZUlnVFe DAqhUGG3V34pp6X0ODEkTDDh AVR6aCS0nA1prHqgjmvnnIZglH vxtyAnqEivKVwiGDpaZ428ZZUf dPduAolwCHzpXQHrFU72RP19 bRZqu4B1yWS0O6YdOJVjqczdcv fpgMC3IWTfFRPtoM20lGMxCFpl Wr8ih2Z5b308SJWjBZDjdR66 Jq8woHocMDMoyAROzN4qvpsts3 ktjhywBvVwHYHiGGv1XXm7SRJw fMtlIdHjLGC3LlJ4RWY0tVFa xN8fcCblmsdayZ4eTqb+TWFsZT wvdGQ+RWIlMWY8pRwqROptTIEu xH9hKPTdL8p5MyIwLcG8VZzw R6CsBSEgdldkCx22hY7fIjBoHf D7ZSchZ6FeyiZ0RVRolDAnENfo VZR4Z15pq9H0JAAmIDEzOYY0 cPE0wX3qkWbpaaqcqSMvaZidnk MhoDilFIniCJlkU016QRJtnDvw Fs42fSIzbSauykS9A9QuPbyb dHI+XJ32MWPtXJ02qNXvyIImt1 itzCe2OyQwVHJeLTP3mSjoVVuz v2XwWJOdQ60dxRYqe8Q8XQHv oPbpxHQcUhQbkXB7tZ5aEMjrnz rhq3idrqmdRtvmh0ovqi05lG57 I91gTZowIOBvUGZsRECfVQTl qUpexw0kcU5iYd3+AXVitGH4oP I4cQ1gYwRbLkJ9GZlnH440CbHf dGGxYcgya2zjz0rfoIx5LeHu HQRbejCqrXfjVWW3w5LsJn07J6 9sIHdpZHRoPSIyMCUiIHZhbGln zh9hzB8oDr4+EN7ys5dqoj89 hI20rOR+FIRbJXK1aLqxEDegIX TerC1sBBkgKoB8EYWnMuEmiJ21 yZBrKHomSi0jzBepdTibGS1x KZVpcclym435SoKnb9quUMDgsO JdWLgoQTG7H74cb6S9KUWbTMPe MOO1bNF3rU3ugWcgvdrbqAQo kLxoroIfnQivFLcdGJzcT960SY BcfBqxLlUrlEJaX2rubgHUGI6c OjwvdGQ+CRMtSDA7xHezBAlr QZJmrD1tKPYdA0c4IoHuUlS1ZL spO6LgikD0QWRyfSEwNSZksDPB zW6ygzblt1apapllFnTqBIFc XEa0EIc8VFZdnRsmVfUpJKO2Jj K2WGQ3nDJpzS0psBfiqvnqtJ7w Oyc+RklOOjwvdGQ+PHRkIHN0 yJllGAcfSJWieY5gMHEsY6x1Ag NwInT8AAzzT2KmgjU7ASPshZGa JMGsaLVHzX9fjiubq9dsfudq TeOqKMMxDWz9OBi8ZLEqoUdnRa GbYVX7JiD1ZEN4bWWymI7lrYiq mkcfzS7uKsh+TVJOOjwvdGQ+ SMLnWTM0vQqcSPbrFLSpmK2fYQ PyB8j3KlPvRqN5NDlhY4EsldQ3 SBIglLJcUQKtvXFHdN5pokfc a5tdobruVvEkYMGxMNt6DWg7XZ ClwKzfOlJwHOV6OuW4UJE1vZIl sX5dqOccgumscA6qGve+UGF5 IQA1FS33ZV57Y6YhIvtqnTSraP U+PHRhYmxlIHdpZHRoPScxMDAl NfOadFdmQC6oJk6aREKfCRPm [id number] (more content not included)... Normal [facility] Consultation Noteon 09-21-19 Consultation Note [id number]#[id number]:127 Normal [facility] Lab Reportson 09-20-2022 Lab Reports [id number]#[id number]:127 Normal [facility] RAD - Ultrasound Reporton RAD - Ultrasound Report [id number]#[id number]:127 Normal [facility] Outside Recordson 09-16-2022 Outside Records [id number]#[id number]:127 Normal [facility] Auto Diffon 09-14-2022 Basophils/100 WBC (Bld) 0.5 % Normal 0.0-2.0 [facility] Comment on above: Order Comment: Order Added by Discern Expert. Performed By: #### 2 332393, 02639894, 5231962, 18273542, 8172060 #### [facility] Laboratory [address] [place] [address] Basophils/Leukocytes Auto (Bld) [Pure # fraction] 0.0 E9/L Normal 0.0-0.2 [facility] Comment on above: Order Comment: Order Added by Discern Expert. Performed By: #### 2 760287, 66682157, 4458667, 04690746, 3489124 #### [facility] [address] [place] [address] 86845 Eosinophils/100 WBC (Bld) 3.2 % Normal 0.0-8.0 [facility] Comment on above: Order Comment: Order Added by Discern Expert. Performed By: #### 2 960733, 37086436, 0655511, 07766749, 1328342 #### [facility] [address] [place] [address] 77189 Eosinophils/Leukocytes Auto (Bld) [Pure # fraction] 0.2 E9/L Normal 0.0-0.5 [facility] Comment on above: Order Comment: Order Added by Discern Expert. Performed By: #### 2 370841, 15635176, 4761282, 94382744, 5603998 #### [facility] [address] [place] [address] 19707 Lymphocytes/100 WBC (Bld) 17.6 % Normal 14.0-50.0 [facility] Comment on above: Order Comment: Order Added by Discern Expert. Performed By: #### 2 366371, 39319686, 1025712, 99801258, 7702609 #### [facility] [address] [place] [address] 38310 Lymphocytes/Leukocytes Auto (Bld) [Pure # fraction] 0.9 E9/L Low 1.0-4.0 [facility] Comment on above: Order Comment: Order Added by Discern Expert. Performed By: #### 2 618761, 93131598, 3855469, 59737768, 3663365 #### [facility] [address] [place] [address] Monocytes/100 WBC (Bld) 10.2 % Normal 4.0-14.0 [facility] Comment on above: Order Comment: Order Added by Discern Expert. Performed By: #### 2 493143, 82413021, 2598258, 13288949, 9799112 #### [facility] [address] [place] [address] Monocytes/Leukocytes Auto (Bld) [Pure # fraction] 0.5 E9/L Normal 0.2-1.0 [facility] Comment on above: Order Comment: Order Added by Discern Expert. Performed By: #### 2 871602, 53721837, 5925712, 87012556, 9973023 #### [facility] [address] [place] [address] Neutrophils/100 WBC (Bld) 68.5 % Normal 36.0-75.0 [facility] Comment on above: Order Comment: Order Added by Discern Expert. Performed By: #### 2 985099, 53573291, 1150466, 80964536, 0681304 #### [facility] [address] [place] [address] Neutrophils/Leukocytes Auto (Bld) [Pure # fraction] 3.6 E9/L Normal 2.0-7.5 [facility] Comment on above: Order Comment: Order Added by Discern Expert. Performed By: #### 2 626117, 60292707, 5430861, 42254964, 2113638 #### [facility] [address] [place] [address] BMPon 09-14-2022 Anion gap [Moles/Vol] 10 mmol/L Normal 6-16 [facility] Comment on above: Performed By: #### 2 192156, 89023279, 1688912, 99401740, 4731399 #### [facility] [address] [place] [address] Calcium [Mass/Vol] 8.6 mg/dL Low 8.9-11.1 [facility] Comment on above: Performed By: #### 2 896673, 66055599, 9097747, 80028494, 0896380 #### [facility] [address] [place] [address] Chloride [Moles/Vol] 108 mmol/L Normal 101-111 [facility] Comment on above: Performed By: #### 2 499053, 84356512, 1228467, 91774219, 3014515 #### [facility] [address] [place] [address] CO2 [Moles/Vol] 23 mmol/L Normal 21-31 [facility] Comment on above: Performed By: #### 2 959029, 88529539, 6428166, 83026849, 0366887 #### [facility] [address] [place] [address] Creatinine [Mass/Vol] 2.1 mg/dL High 0.5-1.3 [facility] Comment on above: Performed By: #### 2 837788, 28403541, 8806235, 93147824, 3216642 #### [facility] [address] [place] [address] Glucose [Mass/Vol] 89 mg/dL Normal 55-199 [facility] Comment on above: Result Comment: If t his glucose result represents a fasting glucose, interpretation should refer to the following reference range: 55-99 mg/dL Performed By: #### 2 071020, 51840064, 5832214, 77258968, 8905812 #### [facility] [address] [place] [address] Potassium [Moles/Vol] 4.1 mmol/L Normal 3.5-5.3 [facility] Comment on above: Performed By: #### 2 142788, 98018932, 3264690, 14058833, 3388617 #### [facility] [address] [place] [address] Sodium [Moles/Vol] 137 mmol/L Normal 135-145 [facility] Comment on above: Performed By: #### 2 653558, 53472312, 8695357, 59155803, 1512297 #### [facility] [address] [place] [address] Urea nitrogen [Mass/Vol] 26 mg/dL High 5-21 [facility] Comment on above: Performed By: #### 2 971530, 61188160, 4632835, 44126871, 4138597 #### [facility] [address] [address] Urea nitrogen/Creatinine [Mass ratio] 12 No Units Normal 10-20 [facility] Comment on above: Performed By: #### 2 895959, 31426372, 2772198, 53026325, 3404802 #### [facility] [address] [place] [address] CBC w/ Auto Diffon 3 Erythrocyte distribution width (RBC) [Ratio] 14.0 % Normal 10.9-14.2 [facility] Comment on above: Performed By: #### 2 544751, 26304180, 0061681, 35253381, 8191278 #### [facility] [address] [place] [address] Hematocrit (Bld) [Volume fraction] 31.6 % Low 37.7-49.0 [facility] Comment on above: Performed By: #### 2 183051, 42484867, 0935667, 99778888, 3777304 #### [facility] [address] [place] [address] Hemoglobin (Bld) [Mass/Vol] 10.9 g/dL Low 13.5-17.5 [facility] Comment on above: Performed By: #### 2 983868, 34225250, 7060141, 93176682, 6185206 #### [facility] [address] [place] [address] MCH (RBC) [Entitic mass] 33.0 pg Normal 27.0-34.0 [facility] Comment on above: Performed By: #### 2 807247, 17644392, 5881863, 26207702, 5548823 #### [facility] [address] [place] [address] MCHC (RBC) [Mass/Vol] 34.5 g/dL Normal 31.4-36.0 [facility] Comment on above: Performed By: #### 2 858163, 44851523, 9199453, 73763671, 7374541 #### [facility] [address] [place] [address] MCV (RBC) [Entitic vol] 95.8 fL Normal 80.0-100.0 [facility] Comment on above: Performed By: #### 2 216494, 58124364, 4735086, 21682937, 6428198 #### [facility] [address] [place], [place] [address] Platelet mean volume (Bld) [Entitic vol] 8.9 fL Normal 6.4-10.8 [facility] Comment on above: Performed By: #### 2 461138, 31277416, 5701346, 00873041, 5835554 #### [facility] [address] [place] [address] Platelets (Bld) [#/Vol] 151.0 E9/L Normal 150.0-500. 0 [facility] Comment on above: Performed By: #### 2 913399, 64544542, 4651686, 51106244, 4902730 #### [facility] [address] [place] [address] RBC (Bld) [#/Vol] 3.3 E12/L Low 4.3-5.9 [facility] Comment on above: Performed By: #### 2 022121, 67244658, 7567244, 38121826, 1264901 #### [facility] [address] [place] [address] WBC corrected for nucl RBC Auto (Bld) [#/Vol] 5.3 E9/L Normal 4.0-11.0 [facility] Comment on above: Performed By: #### 2 756610, 63579911, 2569907, 38666272, 2315754 #### [facility] [address] [place] [address] Consent for Treatmenton 08-26 Consent for Treatment [id number]#[id number]:127 Normal [facility] PT & PTTon 09-14-2022 aPTT Coag (PPP) [Time] 29.7 second(s) Normal 25.1-36.5 [facility] Comment on above: Result Comment: Para [...] the same coagulation reagent and instrumentation as [facility]. Currently there are no coagulation studies available worldwide for children to 14 days, and no normal ranges. Heparin therapeutic range (represented by Anti-Factor Xa activity of 0.2 - 0.4 U/mL) corresponds to PTT of 56.6 - 109.0 sec. Performed By: #### 2 409142, 91707415, 0220213, 60319772, 6171461 #### [facility] [address] [place] [address] INR Coag (PPP) [Relative time] 1.0 {INR} Invalid Interpretation Code [facility] Comment on above: Result Comment: INR results are specifically intended to assess patients stabilized on long-term Anticoagulation therapy suggested INR?s ?Less Intensive Anticoagulation? 2.0 ? 3.0 Conventional Range 3.0 ? 4.5 Performed By: #### 2 452867, 67473081, 8284489, 99563083, 3986390 #### [facility] [address] [place] [address] PT Coag (PPP) [Time] 11.7 second(s) Normal 9.4-12.5 [facility] Comment on above: Result Comment: 15 [...] the same coagulation reagent and instrumentation as [facility]. Currently there are no coagulation studies available worldwide for children to 14 days, and no normal ranges. Performed By: #### 2 526466, 94264406, 6469892, 97980866, 4636659 #### [facility] [address] [place] [address] PTH INTACTon 09-14-2022 PTH, Intact 51 pg/mL Normal 15-65 [facility] Comment on above: Performed By: #### T SH, LIPID, T4, FT3, CMP #### [facility] [address] [place], [place] [address] Dr. Alicia Patel UA With Cult Reflexon 2022 Bacteria LM Ql (Urine sed) TRACE Normal Trace [facility] Comment on above: Performed By: #### 2 983583, 34901267, 2671799, 30760277, 5672002 #### [facility] [address] [place] [address] Bilirubin Ql (U) Negative Normal Negative [facility] Comment on above: Performed By: #### 2 258637, 55809397, 1438322, 55693773, 3659890 #### [facility] [address] [place] [address] Clarity (U) CLOUDY Abnormal Clear [facility] Comment on above: Performed By: #### 2 554150, 70042352, 2154655, 98840807, 3145263 #### [facility] [address] [place] [address] Color (U) YELLOW Normal Yellow [facility] Comment on above: Performed By: #### 2 958607, 75204754, 2035402, 33741778, 4472789 #### [facility] [address] [place] [address] Epithelial cells.squamous LM.HPF (Urine sed) [#/Area] 0-2 Normal 0-2 [facility] Comment on above: Performed By: #### 2 256730, 68086917, 4707876, 35537541, 1113464 #### [facility] [address] [place] [address] Glucose Test strip (U) [Mass/Vol] Negative Normal Negative [facility] Comment on above: Performed By: #### 2 099611, 24762873, 6094551, 86604384, 3266160 #### [facility] [address] [place] [address] Hemoglobin Ql (U) 3+ Abnormal Negative [facility] Comment on above: Performed By: #### 2 922961, 68910669, 0236684, 30268747, 8386130 #### [facility] [address] [place] [address] Ketones (U) [Mass/Vol] Negative Normal Negative [facility] Comment on above: Performed By: #### 2 074076, 21953091, 7017050, 86702708, 4194541 #### [facility] [address] [place] [address] [place].plasma/[place] .RBC (Bld) [Mass ratio] >30 Abnormal 0-3 [facility] Comment on above: Performed By: #### 2 217327, 71790613, 3742402, 74893159, 4674659 #### [facility] [address] [place] [address] Mucus Ql (Urine sed) TRACE Normal [facility] Comment on above: Performed By: #### 2 344927, 89120645, 3418600, 48123023, 3185176 #### [facility] [address] [place] [address] Nitrite Ql (U) Negative Normal Negative [facility] Comment on above: Performed By: #### 2 781480, 26593737, 9974775, 46513175, 1859340 #### [facility] [address] [place] [address] 713[address] pH (U) 6.0 [pH] Invalid Interpretation Code 5.0-9.0 [facility] Comment on above: Performed By: #### 2 944539, 42973019, 2303600, 77192101, 3656952 #### [facility] [address] [place] [address] Protein (U) [Mass/Vol] 2+ Abnormal Negative [facility] Comment on above: Performed By: #### 2 098548, 64733014, 2385268, 84491013, 5671396 #### [facility] [address] [place] [address] Specific gravity (U) [Rel density] 1.025 Invalid Interpretation Code 1.005-1.03 0 [facility] Comment on above: Performed By: #### 2 544578, 85887015, 3428019, 64339250, 3063353 #### [facility] [address] [place] [address] Type of Urine collection method Clean Catch Normal [facility] Comment on above: Performed By: #### 2 383295, 69523926, 9909023, 42062925, 0867727 #### [facility] [address] [place] [address] Urobilinogen Qn (U) 0.2 {Wil'U}/dL Normal 0.0-1.0 [facility] Comment on above: Performed By: #### 2 759161, 53720567, 6866519, 06303167, 0056075 #### [facility] [address] [place] [address] WBC Auto Ql (U) TRACE Abnormal Negative [facility] Comment on above: Performed By: #### 2 057969, 92899128, 2113251, 21374433, 2698946 #### [facility] [address] [place] [address] WBC casts LM.LPF (Urine sed) [#/Area] 0-3 Normal [facility] Comment on above: Performed By: #### 2 572329, 80372589, 6576798, 10787282, 4972755 #### [facility] [address] [place] [address] WBC LM.HPF (Urine sed) [#/Area] 0-5 Normal 0-5 [facility] Comment on above: Performed By: #### 2 947355, 66197888, 4167472, 17138137, 3857810 #### [facility] [address] [place] [address] XR Chest 2 Viewson 3 XR Chest [...] mGy = na DAP = na Normal [facility] eGFRon 09-14-2022 GFR/1.73 sq M.predicted among blacks MDRD (S/P/Bld) [Vol rate/Area] 37 mL/min/1.73 m2 Low >=59 [facility] Comment on above: Order Comment: Order added by Discern Expert. Result Comment: eGFR is race adjusted. AA=. Performed By: #### 2 588352, 32249237, 8903224, 12895080, 7747059 #### [facility] [address] [place] [address] GFR/1.73 sq M.predicted among non-blacks MDRD (S/P/Bld) [Vol rate/Area] 31 mL/min/1.73 m2 Low >=59 [facility] Comment on above: Order Comment: Order added by Discern Expert. Result Comment: Stone Lathe Operator christa kidney disease could be indicated at eGFR's of less than 60 mL/min/1.73m2. Kidney failure is indicated at less than 15 mL/min/1.73m2. Performed By: #### 2 728447, 53656969, 2597118, 49982848, 2865752 #### [facility] [address] [place] [address] HEMOGRAM AND PLATELon 2022 Hematocrit (Bld) [Volume fraction] 32.9 % Critically low 42.0-54.0 [facility] Comment on above: Performed By: #### T SH, LIPID, T4, FT3, CMP #### [facility] [address] [place] [address] [address] Alicia Patel Hemoglobin (Bld) [Mass/Vol] 10.9 g/dL Critically low 14.0-18.0 [facility] Comment on above: Performed By: #### T SH, LIPID, T4, FT3, CMP #### [facility] [address] [place] [address] Dr. Alicia Patel MCH (RBC) [Entitic mass] 32.6 pg Normal 25.9-34.0 [facility] Comment on above: Performed By: #### T SH, LIPID, T4, FT3, CMP #### [facility] [address] [place] [address] Dr. Alicia Patel MCHC (RBC) [Mass/Vol] 33.1 g/dL Normal 29.9-35.2 [facility] Comment on above: Performed By: #### T SH, LIPID, T4, FT3, CMP #### [facility] [address] [place] [address] Dr. Alicia Patel MCV (RBC) [Entitic vol] 98.5 fL Critically high 80.0-94.0 [facility] Comment on above: Performed By: #### T SH, LIPID, T4, FT3, CMP #### [facility] [address] [place] [address] Dr. Alicia Patel PLT 145 103/ul Critically low 150-450 [facility] Comment on above: Performed By: #### T SH, LIPID, T4, FT3, CMP #### [facility] [address] [place] [address] Dr. Alicia Patel RBC 3.34 106/ul Critically low 4.70-6.10 [facility] Comment on above: Performed By: #### T SH, LIPID, T4, FT3, CMP #### [facility] [address] [place] [address] Dr. Alicia Patel WBC 5.1 103/ul Normal 4.0-11.0 [facility] Comment on above: Performed By: #### T SH, LIPID, T4, FT3, CMP #### [facility] [address] [place] [address] Dr. Alicia Patel MAGNESIUMon 09-13-2022 Magnesium [Mass/Vol] 1.5 mg/dL Critically low 1.8-2.4 [facility] Comment on above: Performed By: #### T SH, LIPID, T4, FT3, CMP #### [facility] [address] [place] [address] [address] Alicia Patel RENAL FUNCTION PANELon 09-13 Albumin [Mass/Vol] 3.5 g/dL Normal 3.4-5.0 [facility] Comment on above: Performed By: #### U RTPCR #### [facility] [address] [place] [address] [address] Alicia Patel Calcium [Mass/Vol] 8.4 mg/dL Critically low 8.5-10.1 [facility] Comment on above: Performed By: #### U RTPCR #### [facility] [address] [place] [address] Dr. Alicia Patel Chloride [Moles/Vol] 107 mmol/L Normal 98-107 [facility] Comment on above: Performed By: #### U RTPCR #### [facility] [address] [place] [address] Dr. Alicia Patel CO2 [Moles/Vol] 25.1 mmol/L Normal 21.0-32.0 [facility] Comment on above: Performed By: #### U RTPCR #### [facility] [address] [place] [address] Dr. Alicia Patel Creatinine [Mass/Vol] 1.96 mg/dL Critically high 0.70-1.30 [facility] Comment on above: Performed By: #### U RTPCR #### [facility] [address] [place] [address] Dr. Alicia Patel EGFR-AF TUNISIAN 40 mL/min/1.73m2 Critically low >=60 [facility] Comment on above: Performed By: #### U RTPCR #### [facility] [address] [place] [address] [address] Alicia Patel EGFR-NON AF TUNISIAN 33 mL/min/1.73m2 Critically low >=60 [facility] Comment on above: Performed By: #### U RTPCR #### [facility] [address] [place] [address] [address] Alicia Patel Glucose [Mass/Vol] 151 mg/dL Critically high 74-106 [facility] Comment on above: Performed By: #### U RTPCR #### [facility] [address] [place] [address] [address] Alicia Patel Phosphate [Mass/Vol] 3.5 mg/dL Normal 2.6-4.7 [facility] Comment on above: Performed By: #### U RTPCR #### [facility] [address] [place] [address] Dr. Alciia Patel Potassium [Moles/Vol] 4.3 mmol/L Normal 3.5-5.1 [facility] Comment on above: Performed By: #### U RTPCR #### [facility] [address] [place] [address] Dr. Alicia Patel Sodium [Moles/Vol] 142 mmol/L Normal 136-145 [facility] Comment on above: Performed By: #### U RTPCR #### [facility] [address] [place] [address] Dr. Alicia Patel Urea nitrogen [Mass/Vol] 23.0 mg/dL Critically high 7.0-18.0 [facility] Comment on above: Performed By: #### U RTPCR #### [facility] [address] [place] [address] Dr. Alicia Patel UA RANDOM W/MICROSCOPICon BACTERIA TRACE Abnormal NONE SEEN [facility] Comment on above: Performed By: #### T SH, LIPID, T4, FT3, CMP #### [facility] [address] [place] [address] Dr. Alicia Patel Bilirubin Ql (U) Negative Normal NEGATIVE [facility] Comment on above: Performed By: #### T SH, LIPID, T4, FT3, CMP #### [facility] [address] [place] [address] Dr. Alicia Patel CAST NONE SEEN Normal NONE SEEN [facility] Comment on above: Performed By: #### T SH, LIPID, T4, FT3, CMP #### [facility] [address] [address] [address] Alicia Patel Clarity (U) CLEAR Normal CLEAR [facility] Comment on above: Performed By: #### T SH, LIPID, T4, FT3, CMP #### [facility] [address] [address] [address] Alicia Patel Color (U) LT. YELLOW Normal YELLOW [facility] Comment on above: Performed By: #### T SH, LIPID, T4, FT3, CMP #### [facility] [address] [address] [address] Alicia Patel Crystals LM Nom (Urine sed) NONE SEEN Normal NONE SEEN [facility] Comment on above: Performed By: #### T SH, LIPID, T4, FT3, CMP #### [facility] [address] [place] [address] Dr. Alicia Patel Epithelial cells LM Ql (Urine sed) RARE Normal NONE SEEN /RARE [facility] Comment on above: Performed By: #### T SH, LIPID, T4, FT3, CMP #### [facility] [address] [place] [address] Dr. Alicia Patel Glucose Ql (U) 500 mg/dl Abnormal NEGATIVE [facility] Comment on above: Performed By: #### T SH, LIPID, T4, FT3, CMP #### [facility] [address] [place] [address] Dr. Alicia Patel Hemoglobin Ql (U) LARGE Abnormal NEGATIVE [facility] Comment on above: Performed By: #### T SH, LIPID, T4, FT3, CMP #### [facility] [address] [address] [address] Alicia Patel Ketones Ql (U) Negative Normal NEGATIVE [facility] Comment on above: Performed By: #### T SH, LIPID, T4, FT3, CMP #### [facility] [address] [address] [address] Alicia Patel LEUKOCYTES Negative Normal NEGATIVE [facility] Comment on above: Performed By: #### T SH, LIPID, T4, FT3, CMP #### [facility] [address] [place] [address] Dr. Alicia Patel MUCOUS NONE SEEN Normal NONE SEEN [facility] Comment on above: Performed By: #### T SH, LIPID, T4, FT3, CMP #### [facility] [address] [place] [address] Dr. Alicia Patel Nitrite Ql (U) Negative Normal NEGATIVE [facility] Comment on above: Performed By: #### T SH, LIPID, T4, FT3, CMP #### [facility] [address] [place] [address] Dr. Alicia Patel pH (U) 6.0 [pH] Normal 5-9 [facility] Comment on above: Performed By: #### T SH, LIPID, T4, FT3, CMP #### [facility] [address] [place] [address] Dr. Alicia Patel RBC 20-50 Abnormal 0-2 [facility] Comment on above: Performed By: #### T SH, LIPID, T4, FT3, CMP #### [facility] [address] [place] [address] Dr. Alicia Patel SPEC GRAVITY 1.020 Normal 1.005-<=1. 025 [facility] Comment on above: Performed By: #### T SH, LIPID, T4, FT3, CMP #### [facility] [address] [place] [address] Dr. Alicia Patel UA PROTEIN 100 mg/dl Abnormal NEGATIVE/ TRACE [facility] Comment on above: Performed By: #### T SH, LIPID, T4, FT3, CMP #### [facility] [address] [place] [address] Dr. Alicia Patel Urobilinogen Qn (U) 0.2 {Wil'U}/dL Normal 0.2 - 1. 0 [facility] Comment on above: Performed By: #### T SH, LIPID, T4, FT3, CMP #### [facility] [address] [place] [address] Dr. Alicia Patel WBC 0-2 Abnormal NONE SEEN [facility] Comment on above: Performed By: #### T SH, LIPID, T4, FT3, CMP #### [facility] [address] [place] [address] Dr. Alicia Patel URIC ACID SERUMon 09-13-2022 Urate [Mass/Vol] 5.8 mg/dL Normal 3.5-7.2 [facility] Comment on above: Performed By: #### U RTPCR #### [facility] [address] [place] [address] Dr. Alicia Patel URINE T PROTEIN CREAT RATIOo n 09-13-2022 Protein (U) [Mass/Vol] 122.4 mg/dL Critically high <=12.0 [facility] Comment on above: Performed By: #### U RTPCR #### [facility] [address] [place] [address] Dr. Alicia Patel UR PROT CREAT RAT 1.38 Normal [facility] Comment on above: Performed By: #### U RTPCR #### [facility] [address] [place] [address] Dr. Alicia Patel URINE CREAT 88.74 mg/dL Normal 20.00-300. 00 [facility] Comment on above: Performed By: #### U RTPCR #### [facility] [address] [place] [address] Dr. Alicia Patel VITAMIN D 25 OHon 09-13-2022 VIT D 25-OH 58.0 ng/mL Normal [facility] Comment on above: Performed By: #### T SH, LIPID, T4, FT3, CMP #### [facility] [address] [place] [address] Dr. Alicia Patel VIT D RANGES SEE BELOW Normal [facility] Comment on above: Result Comment: <20 ng/mL Vit D deficient 20 - <30 ng/mL Vit D insufficient 30 - 100 ng/mL Vit D sufficient >100 ng/mL Potential Toxicity Performed By: #### T SH, LIPID, T4, FT3, CMP #### [facility] [address] [place] [address] Dr. Alicia Patel Pre-Certification Formon Pre-Certification Form [id number]#1.00CD:127 Normal [facility] RAD - Ultrasound Reporton RAD - Ultrasound Report [id number]#1.00CD:127 Normal [facility] Screenson 09-07-2022 Screens [id number]#1.00CD:12 7 Normal [facility] Patient Educationon 09-07-19 Patient Education Urology [...] these instructions at home: Medicines ? Take wkwp-bth-rhnaevu and prescription medicines only as told by [...] 11/29/2008 Document Revised: 10/30/2019 Document Reviewed: 10/30/2019 [employer] Patient Education ? 2019 [employer] [facility] Urology Office/Clinic Noteon 09-06-2022 Urology Office/Clinic Note Chief Complaint Pt is here for [facility] f/u HPI Staff Victorino is a 82 y.o. male here for hospital follow up. Pt was seen at [facility]. Previous Dx: acute kidney failure, BPH w/ urinary obstruction, elevated PSA, ED, flank pain, hydronephrosis, kidney stone, prostate cancer, ureteral stone, urinary retention. S/P cysto/stent removal done on 04/15/20, cysto/bilateral dilation ureteral/stent done on 03/11/20, TURP done on 08/01/19, biopsy of prostate done on 07/04/19, cysto/RG/laser done on 06/27/19. Pt presented to [facility] on 08/11/22 for shortness of breath. Pt presented to [facility] later that evening on 08/11/22 for abdominal [...] the prior CT scan performed at the [facility]. The options include both nephroscopic/ureteroscopic approach [...] off asp (more content not included)... Normal [facility] Comment on above: Result Comment: Elec [...] TYLER MONSIVAIS Date: 2022-09-01 09:33 Normal [facility] PSA, FREE AND TOTAL RATIOon 08-25-2022 % Free PSA 13.7 % Normal [facility] Comment on above: Result Comment: The [...] T SH, LIPID, T4, FT3, CMP #### [facility] [address] [place] [address] Dr. Alicia Patel Prostate specific Ag [Mass/Vol] 6.2 ng/mL Critically high 0.0-4.0 [facility] Comment on above: Result Comment: Dwight JUAREZ methodology. . According to the [place] [employer], Serum PSA should decrease and [...] T SH, LIPID, T4, FT3, CMP #### [facility] [address] [place] [address] Dr. Alicia Patel PSA, Free 0.85 ng/mL Normal N/A [facility] Comment on above: Result Comment: Dwight linares ECLIA methodology. Performed By: #### T SH, LIPID, T4, FT3, CMP #### [facility] [address] [place] [address] Dr. Alicia Patel OCC BLD IMMUNO SCREENon 07-29 OCCULT BLOOD Negative Normal NEGATIVE [facility] Comment on above: Performed By: #### T SH, LIPID, T4, FT3, CMP #### [facility] [address] [place] [address] Dr. Alicia Patel CBC AUTO DIFFon 08-21-2022 BASO # 0.0 103/ul Normal 0.0-0.1 [facility] Comment on above: Performed By: #### U RTPCR #### [facility] [address] [place] [address] Dr. Alicia Patel Basophils/100 WBC (Bld) 0.3 % Normal 0.2-2.0 [facility] Comment on above: Performed By: #### U RTPCR #### [facility] [address] [place] [address] Dr. Alicia Patel EO # 0.2 103/ul Normal 0.0-0.7 [facility] Comment on above: Performed By: #### U RTPCR #### [facility] [address] [place] [address] Dr. Alicia Patel Eosinophils/100 WBC (Bld) 3.2 % Normal 0.9-7.0 [facility] Comment on above: Performed By: #### U RTPCR #### [facility] [address] [place] [address] Dr. Alicia Patel Erythrocyte distribution width (RBC) [Ratio] 12.9 % Normal 11.0-15.0 [facility] Comment on above: Performed By: #### U RTPCR #### [facility] [address] [place] [address] Dr. Alicia Patel Hematocrit (Bld) [Volume fraction] 35.4 % Critically low 42.0-54.0 [facility] Comment on above: Performed By: #### U RTPCR #### [facility] [address] [place] [address] Dr. Alicia Patel Hemoglobin (Bld) [Mass/Vol] 11.7 g/dL Critically low 14.0-18.0 [facility] Comment on above: Performed By: #### U RTPCR #### [facility] [address] [place] [address] Dr. Alicia Patel IG # 0.08 10e3/ul Critically high 0.00-0.03 [facility] Comment on above: Performed By: #### U RTPCR #### [facility] [address] [place] [address] Dr. Alicia Patel IG % 1.2 % Critically high 0.0-0.5 [facility] Comment on above: Performed By: #### U RTPCR #### [facility] [address] [place] [address] Dr. Alicia Patel LYMPH # 1.1 103/ul Critically low 1.2-3.8 [facility] Comment on above: Performed By: #### U RTPCR #### [facility] [address] [place] [address] Dr. Alicia Patel Lymphocytes/100 WBC (Bld) 16.6 % Critically low 20.5-60.0 [facility] Comment on above: Performed By: #### U RTPCR #### [facility] [address] [place] [address] Dr. Alicia Patel MANUAL DIFF REQ NO Normal [facility] Comment on above: Performed By: #### U RTPCR #### [facility] [address] [place] [address] Dr. Alicia Patel MCH (RBC) [Entitic mass] 32.4 pg Normal 25.9-34.0 [facility] Comment on above: Performed By: #### U RTPCR #### [facility] [address] [place] [address] Dr. Alicia Patel MCHC (RBC) [Mass/Vol] 33.1 g/dL Normal 29.9-35.2 [facility] Comment on above: Performed By: #### U RTPCR #### [facility] [address] [place] [address] Dr. Alicia Patel MCV (RBC) [Entitic vol] 98.1 fL Critically high 80.0-94.0 [facility] Comment on above: Performed By: #### U RTPCR #### [facility] [address] [place] [address] Dr. Alicia Patel MONO # 0.6 103/ul Normal 0.3-0.8 [facility] Comment on above: Performed By: #### U RTPCR #### [facility] [address] [place] [address] Dr. Alicia Patel Monocytes/100 WBC (Bld) 8.8 % Normal 1.7-12.0 [facility] Comment on above: Performed By: #### U RTPCR #### [facility] [address] [place] [address] Dr. Alicia Patel NEUT # 4.8 103/ul Normal 1.4-6.5 [facility] Comment on above: Performed By: #### U RTPCR #### [facility] [address] [place] [address] Dr. Alicia Patel Neutrophils/100 WBC (Bld) 69.9 % Normal 43.0-75.0 [facility] Comment on above: Performed By: #### U RTPCR #### [facility] [address] [place] [address] Dr. Alicia Patel Platelet mean volume (Bld) [Entitic vol] 10.4 fL Normal 9.5-13.5 [facility] Comment on above: Performed By: #### U RTPCR #### [facility] [address] [place] [address] Dr. Alicia Patel PLT 200 103/ul Normal 150-450 [facility] Comment on above: Performed By: #### U RTPCR #### [facility] [address] [place] [address] Dr. Alicia Patel RBC 3.61 106/ul Critically low 4.70-6.10 [facility] Comment on above: Performed By: #### U RTPCR #### [facility] [address] [address] [address] Alicia Patel WBC 6.8 103/ul Normal 4.0-11.0 [facility] Comment on above: Performed By: #### U RTPCR #### [facility] [address] [place] [address] Dr. Alicia Patel FREE T3on 08-21-2022 FREE T3 1.91 pg/mlL Critically low 2.18-3.98 [facility] Comment on above: Performed By: #### T SH, LIPID, T4, FT3, CMP #### [facility] [address] [place] [address] Dr. Alicia Patel GLYCOHEMOGLOBIN A1Con 2022 ADA RECOMMENDATION SEE BELOW Normal [facility] Comment on above: Result Comment: ADA RECOMMENDED LIMIT 4.0 - 6.0 ADA THERAPEUTIC TARGET < 7.0 ACTION SUGGESTED > 7.0 Performed By: #### T SH, LIPID, T4, FT3, CMP #### [facility] [address] [place] [address] Dr. Alicia Patel Glucose [Mass/Vol] 194 mg/dL Normal [facility] Comment on above: Performed By: #### T SH, LIPID, T4, FT3, CMP #### [facility] [address] [place] [address] Dr. Alicia Patel HbA1c (Bld) [Mass fraction] 8.4 % Critically high 4.5-6.2 [facility] Comment on above: Performed By: #### T SH, LIPID, T4, FT3, CMP #### [facility] [address] [place] [address] Dr. Alicia Patel LIPID PROFILEon 08-21-2022 CHOL-HDL RATIO NORM SEE BELOW Normal [facility] Comment on above: Result Comment: 3.3 - 4.4 LOW RISK 4.4 - 7.1 AVERAGE RISK 7.1 - 11.0 MODERATE RISK >11.0 HIGH RISK Performed By: #### T SH, LIPID, T4, FT3, CMP #### [facility] [address] [place] [address] Dr. Alicia Patel Cholesterol [Mass/Vol] 120 mg/dL Normal <=200 [facility] Comment on above: Performed By: #### T SH, LIPID, T4, FT3, CMP #### [facility] [address] [place] [address] Dr. Alicia Patel Cholesterol in HDL [Mass/Vol] 30 mg/dL Critically low 40-60 [facility] Comment on above: Performed By: #### T SH, LIPID, T4, FT3, CMP #### [facility] [address] [place] [address] Dr. Alicia Patel Cholesterol in LDL [Mass/Vol] 59.8 mg/dL Normal [facility] Comment on above: Performed By: #### T SH, LIPID, T4, FT3, CMP #### [facility] [address] [place] [address] Dr. Alicia Patel Cholesterol.total/Chol esterol in HDL [Mass ratio] 4.0 {ratio} Normal [facility] Comment on above: Performed By: #### T SH, LIPID, T4, FT3, CMP #### [facility] [address] [place] [address] Dr. Alicia Patel HDL NORMAL > or = 60 mg/dl - LO W CARDIOVASCULAR RISK <40 mg/dl - HIGH CARDIOVASCULAR RISK Normal [facility] Comment on above: Performed By: #### T SH, LIPID, T4, FT3, CMP #### [facility] [address] [place] [address] Dr. Alicia Patel LDL CALC NORMAL SEE BELOW Normal [facility] Comment on above: Result Comment: <100 mg/dl OPTIMAL 100 - 129 mg/dl NEAR OR ABOVE OPTIMAL 130 - 159 mg/dl BORDERLINE HIGH 160 - 189 mg/dl HIGH >190 mg/dl VERY HIGH Performed By: #### T SH, LIPID, T4, FT3, CMP #### [facility] [address] [address] [address] Alicia Patel Triglyceride [Mass/Vol] 151 mg/dL Critically high <=150 [facility] Comment on above: Performed By: #### T SH, LIPID, T4, FT3, CMP #### [facility] [address] [address] [address] Alicia Patel VLDL CALC 30.2 mg/dL Normal [facility] Comment on above: Performed By: #### T SH, LIPID, T4, FT3, CMP #### [facility] [address] [address] [address] Alicia Patel PROF 14(COMP METB)on 023 Albumin [Mass/Vol] 3.3 g/dL Critically low 3.4-5.0 [facility] Comment on above: Performed By: #### T SH, LIPID, T4, FT3, CMP #### [facility] [address] [place] [address] Dr. Alicia Patel Albumin/Globulin [Mass ratio] 0.9 {ratio} Normal [facility] Comment on above: Performed By: #### T SH, LIPID, T4, FT3, CMP #### [facility] [address] [place] [address] Dr. Alicia Patel ALP [Catalytic activity/Vol] 79 U/L Normal 46-116 [facility] Comment on above: Performed By: #### T SH, LIPID, T4, FT3, CMP #### [facility] [address] [place] [address] Dr. Alicia Patel ALT [Catalytic activity/Vol] 61 U/L Normal 16-63 [facility] Comment on above: Performed By: #### T SH, LIPID, T4, FT3, CMP #### [facility] [address] [place] [address] Dr. Alicia Patel Anion gap [Moles/Vol] 12.6 mmol/L Normal [facility] Comment on above: Performed By: #### T SH, LIPID, T4, FT3, CMP #### [facility] [address] [place] [address] Dr. Alicia Patel AST [Catalytic activity/Vol] 39 U/L Critically high 15-37 [facility] Comment on above: Performed By: #### T SH, LIPID, T4, FT3, CMP #### [facility] [address] [place] [address] Dr. Alicia Patel Bilirubin [Mass/Vol] 0.7 mg/dL Normal 0.2-1.0 [facility] Comment on above: Performed By: #### T SH, LIPID, T4, FT3, CMP #### [facility] [address] [place] [address] Dr. Alicia Patel Calcium [Mass/Vol] 8.9 mg/dL Normal 8.5-10.1 [facility] Comment on above: Performed By: #### T SH, LIPID, T4, FT3, CMP #### [facility] [address] [place] [address] Dr. Alicia Patel Chloride [Moles/Vol] 111 mmol/L Critically high 98-107 [facility] Comment on above: Performed By: #### T SH, LIPID, T4, FT3, CMP #### [facility] [address] [place] [address] Dr. Alicia Patel CO2 [Moles/Vol] 24.0 mmol/L Normal 21.0-32.0 [facility] Comment on above: Performed By: #### T SH, LIPID, T4, FT3, CMP #### [facility] [address] [place] [address] Dr. Alicia Patel Creatinine [Mass/Vol] 1.80 mg/dL Critically high 0.70-1.30 [facility] Comment on above: Performed By: #### T SH, LIPID, T4, FT3, CMP #### [facility] [address] [place] [address] Dr. Alicia Patel EGFR-AF TUNISIAN 44 mL/min/1.73m2 Critically low >=60 [facility] Comment on above: Performed By: #### T SH, LIPID, T4, FT3, CMP #### [facility] [address] [place] [address] Dr. Alicia Patel EGFR-NON AF TUNISIAN 36 mL/min/1.73m2 Critically low >=60 [facility] Comment on above: Performed By: #### T SH, LIPID, T4, FT3, CMP #### [facility] [address] [place] [address] Dr. Alicia Patel Globulin (S) [Mass/Vol] 3.5 g/dL Normal [facility] Comment on above: Performed By: #### T SH, LIPID, T4, FT3, CMP #### [facility] [address] [place] [address] Dr. Alicia Patel Glucose [Mass/Vol] 118 mg/dL Critically high 74-106 [facility] Comment on above: Performed By: #### T SH, LIPID, T4, FT3, CMP #### [facility] [address] [place] [address] Dr. Alicia Patel Potassium [Moles/Vol] 4.6 mmol/L Normal 3.5-5.1 [facility] Comment on above: Performed By: #### T SH, LIPID, T4, FT3, CMP #### [facility] [address] [place] [address] Dr. Alciia Patel Protein [Mass/Vol] 6.8 g/dL Normal 6.4-8.2 [facility] Comment on above: Performed By: #### T SH, LIPID, T4, FT3, CMP #### [facility] [address] [place] [address] Dr. Alicia Patel Sodium [Moles/Vol] 143 mmol/L Normal 136-145 [facility] Comment on above: Performed By: #### T SH, LIPID, T4, FT3, CMP #### [facility] [address] [place] [address] Dr. Alicia Patel Urea nitrogen [Mass/Vol] 31.0 mg/dL Critically high 7.0-18.0 [facility] Comment on above: Performed By: #### T SH, LIPID, T4, FT3, CMP #### [facility] [address] [place] [address] Dr. Alicia Patel Urea nitrogen/Creatinine [Mass ratio] 17.2 mg/mg Normal [facility] Comment on above: Performed By: #### T SH, LIPID, T4, FT3, CMP #### [facility] [address] [place] [address] Dr. Alicia Patel T4on 08-21-2022 T4 [Mass/Vol] 7.70 ug/dL Normal 4.50-12.10 [facility] Comment on above: Performed By: #### T SH, LIPID, T4, FT3, CMP #### [facility] [address] [place] [address] Dr. Alicia Patel TSHon 08-21-2022 TSH 1.138 uIU/mL Normal 0.358-3.74 0 [facility] Comment on above: Performed By: #### T SH, LIPID, T4, FT3, CMP #### [facility] [address] [place] [address] Dr. Alicia Patel RENAL FUNCTION PANELon 08-18 Albumin [Mass/Vol] 3.3 g/dL Critically low 3.4-5.0 [facility] Comment on above: Performed By: #### U RTPCR #### [facility] [address] [place] [address] Dr. Alicia Patel Calcium [Mass/Vol] 8.3 mg/dL Critically low 8.5-10.1 [facility] Comment on above: Performed By: #### U RTPCR #### [facility] [address] [place] [address] Dr. Alicia Patel Chloride [Moles/Vol] 109 mmol/L Critically high 98-107 [facility] Comment on above: Performed By: #### U RTPCR #### [facility] [address] [place] [address] Dr. Alicia Patel CO2 [Moles/Vol] 22.1 mmol/L Normal 21.0-32.0 [facility] Comment on above: Performed By: #### U RTPCR #### [facility] [address] [place] [address] Dr. Alicia Patel Creatinine [Mass/Vol] 2.14 mg/dL Critically high 0.70-1.30 [facility] Comment on above: Performed By: #### U RTPCR #### [facility] [address] [address] [address] Alicia Patel EGFR-AF TUNISIAN 36 mL/min/1.73m2 Critically low >=60 [facility] Comment on above: Performed By: #### U RTPCR #### [facility] [address] [address] [address] Alicia Patel EGFR-NON AF TUNISIAN 30 mL/min/1.73m2 Critically low >=60 [facility] Comment on above: Performed By: #### U RTPCR #### [facility] [address] [place] [address] Dr. Alicia Patel Glucose [Mass/Vol] 102 mg/dL Normal 74-106 [facility] Comment on above: Performed By: #### U RTPCR #### [facility] [address] [address] [address] Alicia Patel Phosphate [Mass/Vol] 3.1 mg/dL Normal 2.6-4.7 [facility] Comment on above: Performed By: #### U RTPCR #### [facility] [address] [place] [address] Dr. Alicia Patel Potassium [Moles/Vol] 3.9 mmol/L Normal 3.5-5.1 [facility] Comment on above: Performed By: #### U RTPCR #### [facility] [address] [place] [address] Dr. Alicia Patel Sodium [Moles/Vol] 141 mmol/L Normal 136-145 [facility] Comment on above: Performed By: #### U RTPCR #### [facility] [address] [address] [address] Alicia Patel Urea nitrogen [Mass/Vol] 41.0 mg/dL Critically high 7.0-18.0 [facility] Comment on above: Performed By: #### U RTPCR #### [facility] [address] [address] [address] Alicia Patel ED Note-Physicianon 08-17-19 ED Note-Physician [id number]#1.00CD:127 Normal [facility] RAD - CT Reporton 08-17-2022 RAD - CT Report [id number]#[id number]:127 Normal [facility] RAD - MISCon 08-17-2022 RAD - MISC [id number]#1.00CD:127 Normal [facility] RAD - MISC [id number]#1.00CD:127 [facility] Insurance Correspondence Off iceon 08-16-2022 Insurance Correspondence Office [id number]#1.00CD:127 Normal [facility] Creatinine and Glomerular fi ltration rate.predicted panel (S/P/Bld)Ordered By: Hiral Interiano on 08-15-2022 Creatinine [Mass/Vol] 3.46 mg/dL 0.64-1.27 [facility] Comment on above: Delta: 6.60 on 08/14 Estimated glomerular filtrat ion rate (GFR) non- AmericanOrdered By: Hiral Interiano on 08-15-2022 GFR/1.73 sq M.predicted among non-blacks MDRD (S/P/Bld) [Vol rate/Area] 17 mL/Min [facility] Glucose Glucometer (BldC) [M ass/Vol]Ordered By: Hiral Interiano on 08-15-2022 Glucose [Mass/Vol] 135 mg/dL [facility] Comment on above: Random Glucose Refer ence Range is dependent on time and content of last meal. Glucose of more than 200 mg/dL in a nonstressed, ambulatory subject supports the diagnosis of Diabetes Mellitus. No Panel InformationOrdered By: Hiral Interiano on 08-15-2022 Estimated GFR () 21 mL/Min [facility] Comment on above: GFR estimated refere nce range: According to KDOQI guidelines, <60 ml/min/1.73m2 is sufficient to diagnose a patient with chronic kidney disease. Pharmacy Creatinine Clearance (Chem 21.94 [facility] Serum or plasma anion gap de terminationOrdered By: Hiral Interiano on 08-15-2022 Anion gap [Moles/Vol] 10.3 mmol/L 6.0-15.0 [facility] Serum or plasma calcium alpesh urement (mass/volume)Ordered By: Hiral Interiano on 08-15-2022 Calcium [Mass/Vol] 7.7 mg/dL 8.2-10.2 [facility] Serum or plasma chloride adina surement (moles/volume)Ordered By: Hiral Interiano on 08-15-2022 Chloride [Moles/Vol] 112 mmol/L 95-114 [place] Serum or plasma glucose alpesh urement (mass/volume)Ordered By: Hiral Interiano on 08-15-2022 Glucose [Mass/Vol] 140 mg/dL 70-100 [facility] Comment on above: ADA recommended refe rence rangeRandom Glucose Reference Range is dependent on time and content of last meal. Glucose of more than 200 mg/dL in a nonstressed, ambulatory subject supports the diagnosis of Diabetes Mellitus. Serum or plasma potassium me asurement (moles/volume)Ordered By: Hiral Interiano on 08-15-2022 Potassium [Moles/Vol] 3.8 mmol/L 3.5-5.1 [facility] Serum or plasma sodium measu rement (moles/volume)Ordered By: Hiral Interiano on 08-15-2022 Sodium [Moles/Vol] 140 mmol/L 136-146 [facility] Serum or plasma total carbon dioxide measurement (moles/volume)Ordered By: Hiral Interiano on 08-15-2022 CO2 [Moles/Vol] 21.5 mmol/L 22.0-30.0 [facility] Serum or plasma urea nitroge n measurement (mass/volume)Ordered By: Hiral Interiano on 08-15-2022 Urea nitrogen [Mass/Vol] 45 mg/dL 9-23 [facility] Basophils Auto (Bld) [#/Vol] Ordered By: Hiral Interiano on 08-14-2022 Basophils (Bld) [#/Vol] 0.0 10*3/uL 0.0-0.2 [facility] Basophils/100 WBC Auto (Bld) Ordered By: Hiral Interiano on 08-14-2022 Basophils/100 WBC (Bld) 0.2 % . [facility] Eosinophils Auto (Bld) [#/Vo l]Ordered By: Hiral Interiano on 08-14-2022 Eosinophils (Bld) [#/Vol] 0.1 10*3/uL 0.0-0.45 [facility] Eosinophils/100 WBC Auto (Bl d)Ordered By: Hiral Interiano on 08-14-2022 Eosinophils/100 WBC (Bld) 1.0 % . [facility] Erythrocyte distribution wid th Auto (RBC) [Ratio]Ordered By: Hiral Interiano on 08-14-2022 Erythrocyte distribution width (RBC) [Ratio] 13.5 % 12.0-14.8 [facility] Hematocrit Auto (Bld) [Volum e fraction]Ordered By: Hiral Interiano on 08-14-2022 Hematocrit (Bld) [Volume fraction] 35.4 % 38.8-50.0 [facility] Hemoglobin [Mass/volume] in BloodOrdered By: Hiral Interiano on 08-14-2022 Hemoglobin (Bld) [Mass/Vol] 12.0 g/dL 13.0-17.0 [facility] Leukocytes [#/volume] correc ike for nucleated erythrocytes in Blood by Automated counOrdered By: Hiral Interiano on 08-14-2022 WBC corrected for nucl RBC Auto (Bld) [#/Vol] 7.4 10*3/uL 4.1-10.5 [facility] Lymphocytes Auto (Bld) [#/Vo l]Ordered By: Hiral Interiano on 08-14-2022 Lymphocytes (Bld) [#/Vol] 0.6 10*3/uL 1.00-4.8 [facility] Lymphocytes/100 WBC Auto (Bl d)Ordered By: Hiral Interiano on 08-14-2022 Lymphocytes/100 WBC (Bld) 7.8 % . [facility] MCH Auto (RBC) [Entitic mass ]Ordered By: Hiral Interiano on 08-14-2022 MCH (RBC) [Entitic mass] 33.0 pg 27.5-35.2 [facility] MCHC Auto (RBC) [Mass/Vol]Or dered By: Hiral Interiano on 08-14-2022 MCHC (RBC) [Mass/Vol] 33.9 g/dL 32.5-35.6 [facility] MCV Auto (RBC) [Entitic vol] Ordered By: Hiral Interiano on 08-14-2022 MCV (RBC) [Entitic vol] 97.3 fL 83.5-101 [facility] Monocytes Auto (Bld) [#/Vol] Ordered By: Hiral Interiano on 08-14-2022 Monocytes (Bld) [#/Vol] 0.8 10*3/uL 0.0-0.8 [facility] Monocytes/100 WBC Auto (Bld) Ordered By: Hiral Interiano on 08-14-2022 Monocytes/100 WBC (Bld) 11.4 % . [facility] Neutrophils Auto (Bld) [#/Vo l]Ordered By: Hiral Interiano on 08-14-2022 Neutrophils (Bld) [#/Vol] 5.9 10*3/uL 1.8-7.7 [facility] Neutrophils/100 WBC Auto (Bl d)Ordered By: Hiral Interiano on 08-14-2022 Neutrophils/100 WBC (Bld) 79.6 % . [facility] No Panel InformationOrdered By: Hiral Interiano on 08-14-2022 Bedside Glucose Comment Glu2: cleaned meter [facility] Nucleated erythrocytes [Pres ence] in Blood by Automated countOrdered By: Hiral Interiano on 08-14-2022 Nucleated RBC Auto Ql (Bld) 0.1 /100{WBC} 0-0.5 [facility] Platelet mean volume Auto (B ld) [Entitic vol]Ordered By: Hiral Interiano on 08-14-2022 Platelet mean volume (Bld) [Entitic vol] 8.4 fL 6.6-10.1 [facility] Platelets Auto (Bld) [#/Vol] Ordered By: Hiral Interiano on 08-14-2022 Platelets (Bld) [#/Vol] 121 10*3/uL 150-450 [facility] RBC Auto (Bld) [#/Vol]Ordere d By: Hiral Interiano on 08-14-2022 RBC (Bld) [#/Vol] 3.64 10*6/uL 3.90-5.60 [facility] WBC Auto (Bld) [#/Vol]Ordere d By: Hiral Interiano on 08-14-2022 WBC (Bld) [#/Vol] 7.4 10*3/uL 4.1-10.5 [facility] Body fluid albumin measureme nt (mass/volume)Ordered By: Alicia Perea on 08-13-2022 Albumin (Body fld) [Mass/Vol] 3.0 g/dL 3.2-5.5 [facility] Operative Reporton 3 Operative Report [id number]:127 Normal [facility] Consultation Noteon 08-12-19 23 Consultation Note [id number]:127 Normal [facility] Glucose mean value [Mass/vol ume] in Blood Estimated from glycated hemoglobinOrdered By: Hiral Interiano on 08-12-2022 Average glucose Estimated from glycated hemoglobin (Bld) [Mass/Vol] 212 mg/dL [facility] Hemoglobin A1c percentageOrd ered By: Hiral Interiano on 08-12-2022 HbA1c (Bld) [Mass fraction] 9.0 % 4.3-5.6 [facility] Comment on above: Increased risk for d iabetes: 5.7 - 6.4diabetes: >6.4glycemic control for adults with diabetes: <7.0 Anisocytosis LM Ql (Bld)Orde red By: Hiral Interiano on 08-11-2022 Anisocytosis Ql (Bld) Slight [facility] Band form neutrophils/100 WB C Manual cnt (Bld)Ordered By: Hiral Interiano on 08-11-2022 Band form neutrophils/100 WBC (Bld) 1 % 0-5 [facility] Beta-hydroxybutyric acid adina surementOrdered By: Alicia Perea on 08-11-2022 Beta hydroxybutyrate [Mass/Vol] 2.40 mmol/L 0.05-0.27 [facility] [place] cells [Presence] in Blo od by Light microscopyOrdered By: Hiral Interiano on 08-11-2022 Amie cells LM Ql (Bld) Slight [facility] CARDIAC GUIDO 3-6on 3 CK [Catalytic activity/Vol] 162 U/L Normal 39-308 [facility] Comment on above: Performed By: #### T SH, LIPID, T4, FT3, CMP #### [facility] [address] [address] [address] Alicia ARAIZA.MB [Mass/Vol] 5.52 ng/mL Critically high <=3.60 [facility] Comment on above: Performed By: #### T SH, LIPID, T4, FT3, CMP #### [facility] [address] [place] [address] Dr. Alicia Patel HSTROP 19.7 pg/mL Normal 4.0-76.1 [facility] Comment on above: Result Comment: CUT- OFF POINTS HAVE BEEN ESTABLISHED BASED ON THE FOURTH UNIVERSAL DEFINITIONS OF MYOCARDIAL INFARCTION. THE UPPER REFERENCE LIMIT (URL) OF TROPONIN, DEFINED THE 99TH PERCENTILE OF cTnI DISTRIBUTION IN A REFERENCE POPULATION, HAS BEEN CONFIRMED THE DECISION THRESHOLD FOR VT DIAGNOSIS. Performed By: #### T SH, LIPID, T4, FT3, CMP #### [facility] [address] [address] [address] Alicia Patel CK [Catalytic activity/Vol] 150 U/L Normal 39-308 [facility] Comment on above: Performed By: #### T SH, LIPID, T4, FT3, CMP #### [facility] [address] [address] [address] Yilan Patel CK.MB [Mass/Vol] 4.99 ng/mL Critically high <=3.60 [facility] Comment on above: Performed By: #### T SH, LIPID, T4, FT3, CMP #### [facility] [address] [address] [address] Alicia Patel HSTROP 16.9 pg/mL Normal 4.0-76.1 [facility] Comment on above: Result Comment: CUT- OFF POINTS HAVE BEEN ESTABLISHED BASED ON THE FOURTH UNIVERSAL DEFINITIONS OF MYOCARDIAL INFARCTION. THE UPPER REFERENCE LIMIT (URL) OF TROPONIN, DEFINED THE 99TH PERCENTILE OF cTnI DISTRIBUTION IN A REFERENCE POPULATION, HAS BEEN CONFIRMED THE DECISION THRESHOLD FOR VT DIAGNOSIS. Performed By: #### T SH, LIPID, T4, FT3, CMP #### [facility] [address] [place] [address] Dr. Alicia Patel CARDIAC GUIDO ADMITon 023 CK [Catalytic activity/Vol] 128 U/L Normal 39-308 [facility] Comment on above: Performed By: #### T SH, LIPID, T4, FT3, CMP #### [facility] [address] [address] [address] Alicia Patel CK.MB [Mass/Vol] 4.95 ng/mL Critically high <=3.60 [facility] Comment on above: Performed By: #### T SH, LIPID, T4, FT3, CMP #### [facility] [address] [place] [address] Dr. Alicia Patel HSTROP 18.0 pg/mL Normal 4.0-76.1 [facility] Comment on above: Result Comment: CUT- OFF POINTS HAVE BEEN ESTABLISHED BASED ON THE FOURTH UNIVERSAL DEFINITIONS OF MYOCARDIAL INFARCTION. THE UPPER REFERENCE LIMIT (URL) OF TROPONIN, DEFINED THE 99TH PERCENTILE OF cTnI DISTRIBUTION IN A REFERENCE POPULATION, HAS BEEN CONFIRMED THE DECISION THRESHOLD FOR VT DIAGNOSIS. Performed By: #### T SH, LIPID, T4, FT3, CMP #### [facility] [address] [place] [address] Dr. Alicia Patel LIZZY 188 ng/mL Critically high 16-96 [facility] Comment on above: Performed By: #### T SH, LIPID, T4, FT3, CMP #### [facility] [address] [place] [address] Dr. Alicia Patel CBC AUTO DIFFon 08-11-2022 BASO # 0.0 103/ul Normal 0.0-0.1 [facility] Comment on above: Performed By: #### T SH, LIPID, T4, FT3, CMP #### [facility] [address] [place] [address] Dr. Alicia Patel Basophils/100 WBC (Bld) 0.3 % Normal 0.2-2.0 [facility] Comment on above: Performed By: #### T SH, LIPID, T4, FT3, CMP #### [facility] [address] [place] [address] Dr. Alicia Patel EO # 0.2 103/ul Normal 0.0-0.7 [facility] Comment on above: Performed By: #### T SH, LIPID, T4, FT3, CMP #### [facility] [address] [place] [address] Dr. Alicia Patel Eosinophils/100 WBC (Bld) 1.8 % Normal 0.9-7.0 [facility] Comment on above: Performed By: #### T SH, LIPID, T4, FT3, CMP #### [facility] [address] [place] [address] Dr. Alicia Patel Erythrocyte distribution width (RBC) [Ratio] 13.2 % Normal 11.0-15.0 [facility] Comment on above: Performed By: #### T SH, LIPID, T4, FT3, CMP #### [facility] [address] [place] [address] Dr. Alicia Patel Hematocrit (Bld) [Volume fraction] 36.0 % Critically low 42.0-54.0 [facility] Comment on above: Performed By: #### T SH, LIPID, T4, FT3, CMP #### [facility] [address] [place] [address] Dr. Alicia Patel Hemoglobin (Bld) [Mass/Vol] 12.0 g/dL Critically low 14.0-18.0 [facility] Comment on above: Performed By: #### T SH, LIPID, T4, FT3, CMP #### [facility] [address] [place] [address] Dr. Alicia Patel IG # 0.34 10e3/ul Critically high 0.00-0.03 [facility] Comment on above: Performed By: #### T SH, LIPID, T4, FT3, CMP #### [facility] [address] [place] [address] Dr. Alicia Patel IG % 3.8 % Critically high 0.0-0.5 [facility] Comment on above: Performed By: #### T SH, LIPID, T4, FT3, CMP #### [facility] [address] [place] [address] Dr. Alicia Patel LYMPH # 0.5 103/ul Critically low 1.2-3.8 [facility] Comment on above: Performed By: #### T SH, LIPID, T4, FT3, CMP #### [facility] [address] [place] [address] Dr. Alicia Patel Lymphocytes/100 WBC (Bld) 5.9 % Critically low 20.5-60.0 [facility] Comment on above: Performed By: #### T SH, LIPID, T4, FT3, CMP #### [facility] [address] [place] [address] Dr. Alicia Patel MANUAL DIFF REQ NO Normal [facility] Comment on above: Performed By: #### T SH, LIPID, T4, FT3, CMP #### [facility] [address] [place] [address] Dr. Alicia Patle MCH (RBC) [Entitic mass] 32.3 pg Normal 25.9-34.0 [facility] Comment on above: Performed By: #### T SH, LIPID, T4, FT3, CMP #### [facility] [address] [place] [address] Dr. Alicia Patel MCHC (RBC) [Mass/Vol] 33.3 g/dL Normal 29.9-35.2 [facility] Comment on above: Performed By: #### T SH, LIPID, T4, FT3, CMP #### [facility] [address] [place] [address] Dr. Alicia Patel MCV (RBC) [Entitic vol] 97.0 fL Critically high 80.0-94.0 [facility] Comment on above: Performed By: #### T SH, LIPID, T4, FT3, CMP #### [facility] [address] [place] [address] Dr. Alicia Patel MONO # 0.5 103/ul Normal 0.3-0.8 [facility] Comment on above: Performed By: #### T SH, LIPID, T4, FT3, CMP #### [facility] [address] [place] [address] Dr. Alicia Patel Monocytes/100 WBC (Bld) 5.5 % Normal 1.7-12.0 [facility] Comment on above: Performed By: #### T SH, LIPID, T4, FT3, CMP #### [facility] [address] [place] [address] Dr. Alicia Patel NEUT # 7.5 103/ul Critically high 1.4-6.5 [facility] Comment on above: Performed By: #### T SH, LIPID, T4, FT3, CMP #### [facility] [address] [place] [address] Dr. Alicia Patel Neutrophils/100 WBC (Bld) 82.7 % Critically high 43.0-75.0 [facility] Comment on above: Performed By: #### T SH, LIPID, T4, FT3, CMP #### [facility] [address] [place] [address] Dr. Alicia Patel Platelet mean volume (Bld) [Entitic vol] 10.2 fL Normal 9.5-13.5 [facility] Comment on above: Performed By: #### T SH, LIPID, T4, FT3, CMP #### [facility] [address] [place] [address] Dr. Alicia Patel PLT 191 103/ul Normal 150-450 [facility] Comment on above: Performed By: #### T SH, LIPID, T4, FT3, CMP #### [facility] [address] [place], [place] [address] Dr. Alicia Patel RBC 3.71 106/ul Critically low 4.70-6.10 [facility] Comment on above: Performed By: #### T SH, LIPID, T4, FT3, CMP #### [facility] [address] [place], [place] [address] Dr. Alicia Patel WBC 9.0 103/ul Normal 4.0-11.0 [facility] Comment on above: Performed By: #### T SH, LIPID, T4, FT3, CMP #### [facility] [address] [place], [place] [address] ABD/PELVIS WO CONon [...] ILA GALLEGO Date: 2022-08-11 08:38 Normal [facility] Covid-19 PCR (CVDTB)on 07-28 SARS-CoV-2 (COVID-19) RNA SAVANNAH+probe Ql (Unsp spec) Not detected Normal NOT DETECTED [facility] Comment on above: Result Comment: When [...] for this test is supported by the [employer] Inspector of Health and Human Service's declaration that [...] T SH, LIPID, T4, FT3, CMP #### [facility] [address] [place] [address] Dr. Alicia Patel ER URINE PROFILEon 3 Bilirubin Ql (U) Negative Normal NEGATIVE [facility] Comment on above: Performed By: #### T SH, LIPID, T4, FT3, CMP #### [facility] [address] [place] [address] Dr. Alicia Patel Clarity (U) CLEAR Normal CLEAR [facility] Comment on above: Performed By: #### T SH, LIPID, T4, FT3, CMP #### [facility] [address] [place] [address] Dr. Alicia Patel Color (U) LT. YELLOW Normal YELLOW [facility] Comment on above: Performed By: #### T SH, LIPID, T4, FT3, CMP #### [facility] [address] [place] [address] Dr. Alicia Patel ERUAHD A micrscopic examina tion will be performed if indicated. Normal [facility] Comment on above: Performed By: #### T SH, LIPID, T4, FT3, CMP #### [facility] [address] [address] [address] Alicia Patel Glucose Ql (U) Negative Normal NEGATIVE [facility] Comment on above: Performed By: #### T SH, LIPID, T4, FT3, CMP #### [facility] [address] [address] [address] Alicia Patel Hemoglobin Ql (U) SMALL Abnormal NEGATIVE [facility] Comment on above: Performed By: #### T SH, LIPID, T4, FT3, CMP #### [facility] [address] [address] [address] Alicia Patel Ketones Ql (U) Negative Normal NEGATIVE [facility] Comment on above: Performed By: #### T SH, LIPID, T4, FT3, CMP #### [facility] [address] [place] [address] Dr. Alicia Patel LEUKOCYTES Negative Normal NEGATIVE [facility] Comment on above: Performed By: #### T SH, LIPID, T4, FT3, CMP #### [facility] [address] [address] [address] Alicia Patel Nitrite Ql (U) Negative Normal NEGATIVE [facility] Comment on above: Performed By: #### T SH, LIPID, T4, FT3, CMP #### [facility] [address] [place] [address] Dr. Alicia Patel pH (U) 6.0 [pH] Normal 5-9 [facility] Comment on above: Performed By: #### T SH, LIPID, T4, FT3, CMP #### [facility] [address] [address] [address] Alicia Patel Protein (U) [Mass/Vol] 100 mg/dL Abnormal NEGAT ОЛЕГ/ TRACE [facility] Comment on above: Performed By: #### T SH, LIPID, T4, FT3, CMP #### [facility] [address] [place] [address] Dr. Alicia Patel SPEC GRAVITY 1.015 Normal 1.005-<=1. 025 [facility] Comment on above: Performed By: #### T SH, LIPID, T4, FT3, CMP #### [facility] [address] [address] [address] Alicia Patel UR MICRO IND INDICATED Normal [facility] Comment on above: Performed By: #### T SH, LIPID, T4, FT3, CMP #### [facility] [address] [address] [address] Alicia Patel Urobilinogen Qn (U) 0.2 {Wil'U}/dL Normal 0.2 - 1. 0 [facility] Comment on above: Performed By: #### T SH, LIPID, T4, FT3, CMP #### [facility] [address] [address] [address] Alicia Patel Hepatitis B virus surface Ag [Presence] in Serum or Plasma by ImmunoassayOrdered By: Alicia Perea on 08-11-2022 HBV surface Ag IA Ql Negative Negative [place] Hepatitis C virus IgG Ab [Pr esence] in Serum or Plasma by ImmunoassayOrdered By: Alicia Perea on 08-11-2022 HCV IgG IA Ql Non-Reactive Non Reactive [facility] Hepatitis C virus RNA [Units /volume] (viral load) in Serum or Plasma by SAVANNAH with probOrdered By: Alicia Perea on 08-11-2022 HCV RNA SAVANNAH+probe Qn N/A [place] Hepatitis C virus RNA [log u nits/volume] (viral load) in Serum or Plasma by SAVANNAH withOrdered By: Alicia Perea on 08-11-2022 HCV RNA SAVANNAH+probe [Log units/Vol] N/A [facility] - CoagulationOrde red By: Hiral Interiano on 08-11-2022 PT Coag (PPP) [Time] 12.2 s 9.0-12.9 [place] Lymphocytes/100 WBC Manual c nt (Bld)Ordered By: Hiral Interiano on 08-11-2022 Lymphocytes/100 WBC (Bld) 5 % 18-42 [facility] Microcytes LM Ql (Bld)Ordere d By: Hiral Interiano on 08-11-2022 Microcytes Ql (Bld) Slight [facility] Monocytes/100 WBC Manual cnt (Bld)Ordered By: Hiral Interiano on 08-11-2022 Monocytes/100 WBC (Bld) 1 % 2-11 [facility] No Panel InformationOrdered By: Alicia Perea on 08-11-2022 Hepatitis A IgM Antibody Negative Negative [facility] Hepatitis B Core IgM Antibody Negative Negative [facility] Hepatitis C Interpretation See comment . [facility] Comment on above: Not infected with HC V unless early or acute infection issuspected (which may be delayed in an immunocompromisedindividual), or other evidence exists to indicate HCVinfection.Performed at: [facility] [address] [id number] Director: Lee Bob PhD, Phone: [phone] Hepatitis C RNA Quantitative N/A [facility] POINT OF CARE GLUCOSEon 07-28 Glucose [Mass/Vol] 132 mg/dL Critically high 74-106 [facility] Comment on above: Performed By: #### T SH, LIPID, T4, FT3, CMP #### [facility] [address] [place] [address] Dr. Alicia Patel Glucose [Mass/Vol] 117 mg/dL Critically high 74-106 [facility] Comment on above: Performed By: #### T SH, LIPID, T4, FT3, CMP #### [facility] [address] [place] [address] Dr. Alicia Patel Glucose [Mass/Vol] 95 mg/dL Normal 74-106 [facility] Comment on above: Performed By: #### P OCGLUC #### [facility] [address] [place] [address] Dr. Alicia Patel PROF CHEM 8 (BAS METB)on Anion gap [Moles/Vol] 29.5 mmol/L Normal [facility] Comment on above: Performed By: #### T SH, LIPID, T4, FT3, CMP #### [facility] [address] [place] [address] Dr. Alicia Patel Calcium [Mass/Vol] 7.7 mg/dL Critically low 8.5-10.1 [facility] Comment on above: Performed By: #### T SH, LIPID, T4, FT3, CMP #### [facility] [address] [place] [address] Dr. Alicia Patel Chloride [Moles/Vol] 102 mmol/L Normal 98-107 [facility] Comment on above: Performed By: #### T SH, LIPID, T4, FT3, CMP #### [facility] [address] [place] [address] Dr. Alicia Patel CO2 [Moles/Vol] 13.5 mmol/L Critically low 21.0-32.0 [facility] Comment on above: Performed By: #### T SH, LIPID, T4, FT3, CMP #### [facility] [address] [place] [address] Dr. Alicia Patel Creatinine [Mass/Vol] 17.89 mg/dL Critically high 0.70-1.3 0 [facility] Comment on above: Performed By: #### T SH, LIPID, T4, FT3, CMP #### [facility] [address] [place] [address] Dr. Alicia Patel EGFR-AF TUNISIAN 3 mL/min/1.73m2 Critically low >=60 [facility] Comment on above: Performed By: #### T SH, LIPID, T4, FT3, CMP #### [facility] [address] [place] [address] Dr. Alicia Patel EGFR-NON AF TUNISIAN 3 mL/min/1.73m2 Critically low >=60 [facility] Comment on above: Performed By: #### T SH, LIPID, T4, FT3, CMP #### [facility] [address] [place] [address] Dr. Alicia Patel Glucose [Mass/Vol] 105 mg/dL Normal 74-106 [facility] Comment on above: Performed By: #### T SH, LIPID, T4, FT3, CMP #### [facility] [address] [place] [address] Dr. Alicia Patel Potassium [Moles/Vol] 7.0 mmol/L Critically high 3.5-5.1 [facility] Comment on above: Performed By: #### T SH, LIPID, T4, FT3, CMP #### [facility] [address], [place] [address] Dr. Alicia Patel Sodium [Moles/Vol] 138 mmol/L Normal 136-145 [facility] Comment on above: Performed By: #### T SH, LIPID, T4, FT3, CMP #### [facility] [address] [address] [address] Alicia Patel Urea nitrogen [Mass/Vol] 156.0 mg/dL Critically high 7.0-18.0 [facility] Comment on above: Performed By: #### T SH, LIPID, T4, FT3, CMP #### [facility] [address] [address] [address] Alicia Patel Urea nitrogen/Creatinine [Mass ratio] 8.7 mg/mg Normal [facility] Comment on above: Performed By: #### T SH, LIPID, T4, FT3, CMP #### [facility] [address] [address] [address] Alicia Patel Platelet adequacy [Presence] in Blood by Light microscopyOrdered By: Hiral Interiano on 08-11-2022 Platelets LM Ql (Bld) Normal Normal [facility] Platelet morphology finding [Identifier] in BloodOrdered By: Hiral Interiano on 08-11-2022 Platelet morphology finding Nom (Bld) Normal Normal [facility] Platelet poor plasma interna tional normalized ratio (INR) by coagulation assay (relatOrdered By: Hiral Interiano on 08-11-2022 INR Coag (PPP) [Relative time] 1.0 {INR} [facility] Comment on above: INR Therapeutic Rang e [...] on 08-11-2022 Poikilocytosis LM Ql (Bld) Slight [facility] RBC morphologyOrdered By: Donal Interiano on 08-11-2022 RBC morphology finding Nom (Bld) N/A [facility] Segmented neutrophils/100 WB C Manual cnt (Bld)Ordered By: Hiral Interiano on 08-11-2022 Segmented neutrophils/100 WBC (Bld) 94 % 50-70 [facility] Troponin I.cardiac [Mass/vol ume] in Serum or Plasma by High sensitivity methodOrdered By: Hiral Interiano on 08-11-2022 Troponin I.cardiac High sensitivity method [Mass/Vol] 42 pg/mL 0-20 [facility] URINE MICROSCOPIC ONLYon BACTERIA TRACE Abnormal NONE SEEN [facility] Comment on above: Performed By: #### T SH, LIPID, T4, FT3, CMP #### [facility] [address] [address] [address] Alicia Patel Bacteria identified Cx Nom (U) NOT INDICATED Normal [facility] Comment on above: Performed By: #### T SH, LIPID, T4, FT3, CMP #### [facility] [address] [address] [address] Alicia Patel CAST NONE SEEN Normal NONE SEEN [facility] Comment on above: Performed By: #### T SH, LIPID, T4, FT3, CMP #### [facility] [address] [address] [address] Alicia Patel Crystals LM Nom (Urine sed) NONE SEEN Normal NONE SEEN [facility] Comment on above: Performed By: #### T SH, LIPID, T4, FT3, CMP #### [facility] [address] [address] [address] Alicia Patel Epithelial cells LM Ql (Urine sed) RARE Normal NONE SEEN /RARE [facility] Comment on above: Performed By: #### T SH, LIPID, T4, FT3, CMP #### [facility] [address] [address] [address] Alicia Patel MUCOUS NONE SEEN Normal NONE SEEN [facility] Comment on above: Performed By: #### T SH, LIPID, T4, FT3, CMP #### [facility] [address] [place], [place] [address] Dr. Alicia Patel RBC 2-5 Abnormal 0-2 [facility] Comment on above: Performed By: #### T SH, LIPID, T4, FT3, CMP #### [facility] [address] [place], [place] [address] Dr. Alicia Patel WBC 2-5 Abnormal NONE SEEN [facility] Comment on above: Performed By: #### T SH, LIPID, T4, FT3, CMP #### [facility] [address] [place], [place] [address] Dr. Alicia Patel XR CHEST 1 Von [...] YOGESH BYERS Date: 2022-08-11 04:27 Normal [facility] Covid-19 PCR (CVDTBH)on SARS-CoV-2 (COVID-19) RNA SAVANNAH+probe Ql (Unsp spec) Not detected Normal NOT DETECTED [facility] Comment on above: Result Comment: This test is not yet approved or cleared by the [place] FDA. When there are no FDA-approved or cleared tests available, and other criteria are met, FDA can make tests available under an emergency access mechanism called an Emergency Use Authorization (EUA). The EUA for this test is supported by the [place] of Health and Human Service's (HHS's) declaration [...] T SH, LIPID, T4, FT3, CMP #### [facility] [address] [place] [address] Dr. Alicia Patel INFLUENZA A AND B AGon 08-02 INFLUANE SEE BELOW Normal [facility] Comment on above: Result Comment: Nega tive for Flu A protein angiten. Infection due to Flu A cannot be ruled out. Flu A angiten in the sample may be below the detection limit of the test. Performed By: #### T SH, LIPID, T4, FT3, CMP #### [facility] [address] [place] [address] Dr. Alicia Patel INFLUBNEGH SEE BELOW Normal [facility] Comment on above: Result Comment: Nega tive for Flu B protein antigen. Infection due to Flu B cannot be ruled out. Flu B antigen in the sample may be below the detection limit of the test. Performed By: #### T SH, LIPID, T4, FT3, CMP #### [facility] [address] [place] [address] Dr. Alicia Patel INFLUENZA A AG Negative Normal NEGATIVE SEE COMMENT [facility] Comment on above: Performed By: #### T SH, LIPID, T4, FT3, CMP #### [facility] [address] [place] [address] Dr. Alicia Patel INFLUENZA B AG Negative Normal NEGATIVE SEE COMMENT [facility] Comment on above: Performed By: #### T SH, LIPID, T4, FT3, CMP #### [facility] [address] [place] [address] Dr. Alicia Patel PTH INTACTon 05-25-2022 PTH, Intact 47 pg/mL Normal 15-65 [facility] Comment on above: Performed By: #### T SH, LIPID, T4, FT3, CMP #### [facility] [address] [place] [address] Dr. Alicia Patel ALBUMINon 05-24-2022 Albumin [Mass/Vol] 3.9 g/dL Normal 3.4-5.0 [facility] Comment on above: Performed By: #### T SH, LIPID, T4, FT3, CMP #### [facility] [address] [place] [address] Dr. Alicia Patel HEMOGRAM AND PLATELon 2021 Hematocrit (Bld) [Volume fraction] 42.1 % Normal 42.0-54.0 [facility] Comment on above: Performed By: #### T SH, LIPID, T4, FT3, CMP #### [facility] [address] [place] [address] Dr. Alicia Patel Hemoglobin (Bld) [Mass/Vol] 14.7 g/dL Normal 14.0-18.0 [facility] Comment on above: Performed By: #### T SH, LIPID, T4, FT3, CMP #### [facility] [address] [place] [address] Dr. Alicia Patel MCH (RBC) [Entitic mass] 33.2 pg Normal 25.9-34.0 [facility] Comment on above: Performed By: #### T SH, LIPID, T4, FT3, CMP #### [facility] [address] [place] [address] Dr. Alicia Patel MCHC (RBC) [Mass/Vol] 34.9 g/dL Normal 29.9-35.2 [facility] Comment on above: Performed By: #### T SH, LIPID, T4, FT3, CMP #### [facility] [address] [place] [address] Dr. Alicia Patel MCV (RBC) [Entitic vol] 95.0 fL Critically high 80.0-94.0 [facility] Comment on above: Performed By: #### T SH, LIPID, T4, FT3, CMP #### [facility] [address] [place] [address] Dr. Alicia Patel PLT 190 103/ul Normal 150-450 [facility] Comment on above: Performed By: #### T SH, LIPID, T4, FT3, CMP #### [facility] [address] [place] [address] Dr. Alicia Patel RBC 4.43 106/ul Critically low 4.70-6.10 [facility] Comment on above: Performed By: #### T SH, LIPID, T4, FT3, CMP #### [facility] [address] [place] [address] Dr. Alicia Patel WBC 7.0 103/ul Normal 4.0-11.0 [facility] Comment on above: Performed By: #### T SH, LIPID, T4, FT3, CMP #### [facility] [address] [place] [address] Dr. Alicia Patel MAGNESIUMon 05-24-2022 Magnesium [Mass/Vol] 1.7 mg/dL Critically low 1.8-2.4 [facility] Comment on above: Performed By: #### T SH, LIPID, T4, FT3, CMP #### [facility] [address] [place] [address] Dr. Alicia Patel PHOSPHORUSon 05-24-2022 Phosphate [Mass/Vol] 3.7 mg/dL Normal 2.6-4.7 [facility] Comment on above: Performed By: #### T SH, LIPID, T4, FT3, CMP #### [facility] [address] [place] [address] Dr. Alicia Patel PROF CHEM 8 (BAS METB)on Anion gap [Moles/Vol] 11.2 mmol/L Normal [facility] Comment on above: Performed By: #### U RTPCR #### [facility] [address] [place] [address] Dr. Alicia Patel Calcium [Mass/Vol] 9.1 mg/dL Normal 8.5-10.1 [facility] Comment on above: Performed By: #### U RTPCR #### [facility] [address] [place] [address] Dr. Alicia Patel Chloride [Moles/Vol] 104 mmol/L Normal 98-107 [facility] Comment on above: Performed By: #### U RTPCR #### [facility] [address] [address] [address] Alicia Patel CO2 [Moles/Vol] 29.2 mmol/L Normal 21.0-32.0 [facility] Comment on above: Performed By: #### U RTPCR #### [facility] [address] [address] [address] Alicia Patel Creatinine [Mass/Vol] 1.40 mg/dL Critically high 0.70-1.30 [facility] Comment on above: Performed By: #### U RTPCR #### [facility] [address] [address] [address] Alicia Patel EGFR-AF TUNISIAN 59 mL/min/1.73m2 Critically low >=60 [facility] Comment on above: Performed By: #### U RTPCR #### [facility] [address] [address] [address] Alicia Patel EGFR-NON AF TUNISIAN 49 mL/min/1.73m2 Critically low >=60 [facility] Comment on above: Performed By: #### U RTPCR #### [facility] [address] [address] [address] Alicia Patel Glucose [Mass/Vol] 148 mg/dL Critically high 74-106 [facility] Comment on above: Performed By: #### U RTPCR #### [facility] [address] [address] [address] Alicia Patel Potassium [Moles/Vol] 4.4 mmol/L Normal 3.5-5.1 [facility] Comment on above: Performed By: #### U RTPCR #### [facility] [address] [address] [address] Alicia Patel Sodium [Moles/Vol] 140 mmol/L Normal 136-145 [facility] Comment on above: Performed By: #### U RTPCR #### [facility] [address] [address] [address] Alicia Patel Urea nitrogen [Mass/Vol] 16.0 mg/dL Normal 7.0-18.0 [facility] Comment on above: Performed By: #### U RTPCR #### [facility] [address] [address] [address] Alicia Patel Urea nitrogen/Creatinine [Mass ratio] 11.4 mg/mg Normal [facility] Comment on above: Performed By: #### U RTPCR #### [facility] [address] [place] [address] Dr. Alicia Patel UA RANDOM W/MICROSCOPICon BACTERIA NONE SEEN Normal NONE SEEN [facility] Comment on above: Performed By: #### T SH, LIPID, T4, FT3, CMP #### [facility] [address] [place] [address] Dr. Alicia Patel Bilirubin Ql (U) Negative Normal NEGATIVE [facility] Comment on above: Performed By: #### T SH, LIPID, T4, FT3, CMP #### [facility] [address] [place] [address] Dr. Alicia Patel CAST NONE SEEN Normal NONE SEEN [facility] Comment on above: Performed By: #### T SH, LIPID, T4, FT3, CMP #### [facility] [address] [place] [address] Dr. Alicia Patel Clarity (U) CLEAR Normal CLEAR [facility] Comment on above: Performed By: #### T SH, LIPID, T4, FT3, CMP #### [facility] [address] [place] [address] Dr. Alicia Patel Color (U) LT. YELLOW Normal YELLOW [facility] Comment on above: Performed By: #### T SH, LIPID, T4, FT3, CMP #### [facility] [address] [place] [address] Dr. Alicia Patel Crystals LM Nom (Urine sed) NONE SEEN Normal NONE SEEN [facility] Comment on above: Performed By: #### T SH, LIPID, T4, FT3, CMP #### [facility] [address] [place] [address] Dr. Alicia Patel Epithelial cells LM Ql (Urine sed) FEW Abnormal NONE SEEN /RARE [facility] Comment on above: Performed By: #### T SH, LIPID, T4, FT3, CMP #### [facility] [address] [place] [address] Dr. Alicia Patel Glucose Ql (U) Negative Normal NEGATIVE [facility] Comment on above: Performed By: #### T SH, LIPID, T4, FT3, CMP #### [facility] [address] [place] [address] Dr. Alicia Patel Hemoglobin Ql (U) Negative Normal NEGATIVE [facility] Comment on above: Performed By: #### T SH, LIPID, T4, FT3, CMP #### [facility] [address] [place] [address] Dr. Alicia Patel Ketones Ql (U) Negative Normal NEGATIVE [facility] Comment on above: Performed By: #### T SH, LIPID, T4, FT3, CMP #### [facility] [address] [place] [address] Dr. Alicia Patel LEUKOCYTES Negative Normal NEGATIVE [facility] Comment on above: Performed By: #### T SH, LIPID, T4, FT3, CMP #### [facility] [address] [place] [address] Dr. Alicia Patel MUCOUS NONE SEEN Normal NONE SEEN [facility] Comment on above: Performed By: #### T SH, LIPID, T4, FT3, CMP #### [facility] [address] [place] [address] Dr. Alicia Patel Nitrite Ql (U) Negative Normal NEGATIVE [facility] Comment on above: Performed By: #### T SH, LIPID, T4, FT3, CMP #### [facility] [address] [place] [address] Dr. Alicia Patel pH (U) 5.5 [pH] Normal 5-9 [facility] Comment on above: Performed By: #### T SH, LIPID, T4, FT3, CMP #### [facility] [address] [place] [address] Dr. Alicia Patel RBC NONE SEEN Abnormal 0-2 [facility] Comment on above: Performed By: #### T SH, LIPID, T4, FT3, CMP #### [facility] [address] [place] [address] Dr. Alicia Patel SPEC GRAVITY 1.020 Normal 1.005-<=1. 025 [facility] Comment on above: Performed By: #### T SH, LIPID, T4, FT3, CMP #### [facility] [address] [place] [address] Dr. Alicia Patel UA PROTEIN Negative Normal NEGATIVE/ TRACE [facility] Comment on above: Performed By: #### T SH, LIPID, T4, FT3, CMP #### [facility] [address] [place] [address] Dr. Alicia Patel Urobilinogen Qn (U) 0.2 {Wil'U}/dL Normal 0.2 - 1. 0 [facility] Comment on above: Performed By: #### T SH, LIPID, T4, FT3, CMP #### [facility] [address] [place] [address] Dr. Alicia Patel WBC NONE SEEN Normal NONE SEEN [facility] Comment on above: Performed By: #### T SH, LIPID, T4, FT3, CMP #### [facility] [address] [place] [address] Dr. Alicia Patel URIC ACID SERUMon 05-24-2022 Urate [Mass/Vol] 5.6 mg/dL Normal 3.5-7.2 [facility] Comment on above: Performed By: #### T SH, LIPID, T4, FT3, CMP #### [facility] [address] [place] [address] Dr. Alicia Patel URINE T PROTEIN CREAT RATIOo n 05-24-2022 Protein (U) [Mass/Vol] 26.0 mg/dL Critically high <=12.0 [facility] Comment on above: Performed By: #### T SH, LIPID, T4, FT3, CMP #### [facility] [address] [place] [address] Dr. Alicia Patel UR PROT CREAT RAT 0.34 Normal [facility] Comment on above: Performed By: #### T SH, LIPID, T4, FT3, CMP #### [facility] [address] [address] [address] Alicia Patel URINE CREAT 77.39 mg/dL Normal 20.00-300. 00 [facility] Comment on above: Performed By: #### T SH, LIPID, T4, FT3, CMP #### [facility] [address] [address] [address] Alicia Patel Vital Signs Date Time Vital Sign Value Performing Clinician Facility 12-20-2023 11:49-0400 Body height 175.26 cm MD Tray Alfaro Work Phone: [facility] 12-20-2023 11:49-0400 Body mass index (BMI) [Ratio] 39.4 kg/m2 MD Tray Alfaro Work Phone: [facility] 12-20-2023 11:49-0400 Body temperature 96.5 [degF] MD Tray Alfaro Work Phone: [facility] 12-20-2023 11:49-0400 Body weight 121.33 kg MD Tray Alfaro Work Phone: [facility] 12-20-2023 11:49-0400 Diastolic blood pressure 74 mm[Hg] MD Tray Alfaro Work Phone: [facility] 12-20-2023 11:49-0400 Heart rate 83 /min MD Tray Alfaro Work Phone: [facility] 12-20-2023 11:49-0400 Respiratory rate 20 /min MD Tray Alfaro Work Phone: [facility] 12-20-2023 11:49-0400 SaO2% (BldA) [Mass fraction] 94 % MD Tray Alfaro Work Phone: [facility] 12-20-2023 11:49-0400 Systolic blood pressure 135 mm[Hg] MD Tray Alfaro Work Phone: [facility] 06-14-2023 11:00-0500 Body height 175.26 cm Alicia Perea Other [facility] Other 06-14-2023 11:00-0500 Body mass index (BMI) [Ratio] 38.51 kg/m2 Alicia Brit Other [facility] Other 06-14-2023 11:00-0500 Body temperature 97.2 [degF] Alicia Brit Other [facility] Other 06-14-2023 11:00-0500 Body weight 118.3 kg Alicia Brit Other [facility] Other 06-14-2023 11:00-0500 Diastolic blood pressure 72 mm[Hg] Alicia Brit Other [facility] Other 06-14-2023 11:00-0500 Respiratory rate 18 /min Alicia Brit Other [facility] Other 06-14-2023 11:00-0500 SaO2% (BldA) [Mass fraction] 95 % Alicia Brit Other [facility] Other 06-14-2023 11:00-0500 Systolic blood pressure 122 mm[Hg] Alicia Brit Other [facility] Other 11-29-2022 10:20-0400 Body height 175.26 cm Alicia Brit Other [facility] Other 11-29-2022 10:20-0400 Body mass index (BMI) [Ratio] 36.77 kg/m2 Alicia Brit Other [facility] Other 11-29-2022 10:20-0400 Body temperature 96.3 [degF] Alicia Brit Other [facility] Other 11-29-2022 10:20-0400 Body weight 112.95 kg Alicia Brit Other [facility] Other 11-29-2022 10:20-0400 Diastolic blood pressure 72 mm[Hg] Alicia Brit Other [facility] Other 11-29-2022 10:20-0400 Respiratory rate 18 /min Alicia Brit Other [facility] Other 11-29-2022 10:20-0400 SaO2% (BldA) [Mass fraction] 96 % Alicia Brit Other [facility] Other 11-29-2022 10:20-0400 Systolic blood pressure 137 mm[Hg] Alicia Brit Other [facility] Other 10-07-2022 17:25-0400 Heart rate 66 /min [facility] 10-07-2022 17:25-0400 SaO2% (BldA) [Mass fraction] 92 % [facility] 10-07-2022 17:25-0400 Respiratory rate 16 /min [facility] 10-07-2022 17:24-0400 Body temperature 97.7 [degF] [facility] 10-07-2022 17:24-0400 Diastolic blood pressure 74 mm[Hg] [facility] 10-07-2022 17:24-0400 Mean blood pressure 106 mm[Hg] [facility] 10-07-2022 17:24-0400 Systolic blood pressure 170 mm[Hg] [facility] 10-07-2022 16:18-0400 Heart rate 61 /min [facility] 10-07-2022 16:18-0400 SaO2% (BldA) [Mass fraction] 95 % [facility] 10-07-2022 16:17-0400 Diastolic blood pressure 81 mm[Hg] [facility] 10-07-2022 16:17-0400 Mean blood pressure 103 mm[Hg] [facility] 10-07-2022 16:17-0400 Systolic blood pressure 148 mm[Hg] [facility] 10-07-2022 16:17-0400 Respiratory rate 16 /min [facility] 10-07-2022 16:11-0400 Diastolic blood pressure 75 mm[Hg] [facility] 10-07-2022 16:11-0400 Heart rate 58 /min [facility] 10-07-2022 16:11-0400 Mean blood pressure 98 mm[Hg] [facility] 10-07-2022 16:11-0400 Respiratory rate 17 /min [facility] 10-07-2022 16:11-0400 SaO2% (BldA) [Mass fraction] 97 % [facility] 10-07-2022 16:11-0400 Systolic blood pressure 144 mm[Hg] [facility] 10-07-2022 16:00-0400 Mean blood pressure 92 mm[Hg] [facility] 10-07-2022 16:00-0400 Respiratory rate 13 /min [facility] 10-07-2022 15:55-0400 Mean blood pressure 86 mm[Hg] [facility] 10-07-2022 15:55-0400 Respiratory rate 17 /min [facility] 10-07-2022 15:46-0400 Body temperature 98.06 [degF] [facility] 10-07-2022 15:40-0400 Respiratory rate 15 /min Ni OLIVAR[facility] 10-07-2022 10:14-0400 Mean blood pressure 97 mm[Hg] Ni OLIVAR[facility] 10-07-2022 10:14-0400 Blood Pressure Location Ni OLIVARES [facility] 10-07-2022 10:13-0400 Heart rate 64 /min Ni OL[facility] 10-07-2022 10:12-0400 Body temperature 98.06 [degF] Ni OL[facility] 10-07-2022 10:12-0400 Blood Pressure Location Ni COOK [facility] 09-15-2022 14:40-0400 Body height 175.26 cm Alicia Brit Other [facility] Other 09-15-2022 14:40-0400 Body mass index (BMI) [Ratio] 37.48 kg/m2 Alicia Brit Other [facility] Other 09-15-2022 14:40-0400 Body weight 115.12 kg Alicia Brit Other [facility] Other 09-15-2022 14:40-0400 Diastolic blood pressure 73 mm[Hg] Alicia Brit Other [facility] Other 09-15-2022 14:40-0400 Respiratory rate 18 /min Alicia Brit Other [facility] Other 09-15-2022 14:40-0400 SaO2% (BldA) [Mass fraction] 97 % Alicia Brit Other [facility] Other 09-15-2022 14:40-0400 Systolic blood pressure 138 mm[Hg] Alicia Brit Other [facility] Other 09-06-2022 10:01-0400 Blood Pressure Location Ni OLIVARES [facility] 09-06-2022 10:01-0400 Diastolic blood pressure 70 mm[Hg] Ni MARSHALL [facility] 09-06-2022 10:01-0400 Heart rate 68 /min Ni OLIVARES [facility] 09-06-2022 10:01-0400 Systolic blood pressure 132 mm[Hg] Ni OLIVARES [facility] 08-15-2022 12:16-0500 Body temperature 97.8 [degF] MD Tray Alfaro Work Phone: [facility] 08-15-2022 12:16-0500 Diastolic blood pressure 92 mm[Hg] MD Tray Alfaro Work Phone: [facility] 08-15-2022 12:16-0500 Heart rate 68 /min MD Tray Alfaro Work Phone: [facility] 08-15-2022 12:16-0500 Respiratory rate 18 /min MD Tray Alfaro Work Phone: [facility] 08-15-2022 12:16-0500 SaO2% (BldA) [Mass fraction] 95 % MD Tray Alfaro Work Phone: [facility] 08-15-2022 12:16-0500 Systolic blood pressure 146 mm[Hg] MD Tray Alfaro Work Phone: [facility] 08-15-2022 05:08-0500 Body weight 118.2 kg MD Tray Alfaro Work Phone: [facility] 08-13-2022 13:10-0500 Inhaled oxygen flow rate 8 L/min MD Tray Alfaro Work Phone: [facility] 08-13-2022 11:54-0500 Body height 177.8 cm MD Tray Alfaro Work Phone: [facility] 08-13-2022 11:54-0500 Body mass index (BMI) [Ratio] 37.3 kg/m2 MD Tray Alfaro Work Phone: [facility] 06-01-2022 11:40-0500 Body height 175.26 cm Alicia Brit Other [facility] Other 06-01-2022 11:40-0500 Body mass index (BMI) [Ratio] 37.77 kg/m2 Alicia Brit Other [facility] Other 06-01-2022 11:40-0500 Body temperature 97.5 [degF] Alicia Brit Other [facility] Other 06-01-2022 11:40-0500 Body weight 116.03 kg Alicia Brit Other [facility] Other 06-01-2022 11:40-0500 Diastolic blood pressure 71 mm[Hg] Alicia Brit Other [facility] Other 06-01-2022 11:40-0500 Respiratory rate 18 /min Alicia Brit Other [facility] Other 06-01-2022 11:40-0500 SaO2% (BldA) [Mass fraction] 93 % Alicia Brit Other [facility] Other 06-01-2022 11:40-0500 Systolic blood pressure 134 mm[Hg] Alicia Brit Other [facility] Other 11-24-2021 11:20-0400 Body height 175.26 cm Alicia Brit Other [facility] Other 11-24-2021 11:20-0400 Body mass index (BMI) [Ratio] 36.26 kg/m2 Alicia Brit Other [facility] Other 11-24-2021 11:20-0400 Body temperature 96.4 [degF] Alicia Brit Other [facility] Other 11-24-2021 11:20-0400 Body weight 111.4 kg Alicia Brit Other [facility] Other 11-24-2021 11:20-0400 Diastolic blood pressure 72 mm[Hg] Alicia Brit Other [facility] Other 11-24-2021 11:20-0400 Respiratory rate 18 /min Alicia Brit Other [facility] Other 11-24-2021 11:20-0400 SaO2% (BldA) [Mass fraction] 95 % Alicia Brit Other [facility] Other 11-24-2021 11:20-0400 Systolic blood pressure 139 mm[Hg] Alicia Brit Other [facility] Other 10-26-2021 09:17-0400 Blood Pressure Location [facility] 10-26-2021 09:17-0400 Diastolic blood pressure 69 mm[Hg] Milton BRAUN [facility] 10-26-2021 09:17-0400 Heart rate 64 /min Milton BRAUN [facility] 10-26-2021 09:17-0400 Respiratory rate 16 /min Milton BRAUN [facility] 10-26-2021 09:17-0400 Systolic blood pressure 139 mm[Hg] Milton BRAUN [facility] 05-26-2021 11:00-0500 Body height 175.26 cm Alicia Brit Other [facility] Other 05-26-2021 11:00-0500 Body mass index (BMI) [Ratio] 34.4 kg/m2 Alicia Brit Other [facility] Other 05-26-2021 11:00-0500 Body temperature 96.9 [degF] Alicia Brit Other [facility] Other 05-26-2021 11:00-0500 Body weight 105.69 kg Alicia Brit Other [facility] Other 05-26-2021 11:00-0500 Diastolic blood pressure 80 mm[Hg] Alicia Brit Other [facility] Other 05-26-2021 11:00-0500 Respiratory rate 18 /min Alicia Brit Other [facility] Other 05-26-2021 11:00-0500 SaO2% (BldA) [Mass fraction] 94 % Alicia Brit Other [facility] Other 05-26-2021 11:00-0500 Systolic blood pressure 136 mm[Hg] Alicia Brit Other [facility] Other Encounters Encounter Date Encounter Type Care Provider Facility Start: 06-12-2024 ambulatory Ni OLIVARES [facility] Start: 05-21-2024 End: 05-21-2024 ambulatory [facility] Start: 12-20-2023 End: 12-20-2023 ambulatory MD Tray Alfaro Work Phone: [facility] Work Phone: Start: 12-20-2023 End: 12-20-2023 Patient encounter procedure MD Tray Alfaro [facility] Work Phone: Start: 12-14-2023 Non-patient / Non-visit MD Annalisa Alfaro [facility] Work Phone: Start: 11-01-2023 End: 11-01-2023 ambulatory [facility] Start: 10-26-2023 End: 10-26-2023 ambulatory JENNIFER DRISCOLL Not Available Start: 10-18-2023 End: 10-18-2023 ambulatory MD Tray Alfaro Work Phone: [facility] Work Phone: Start: 10-18-2023 End: 10-18-2023 Departed Referred MD Tray Alfaro Work Phone: [facility] Start: 09-12-2023 End: 09-12-2023 ambulatory JENNIFER DRISCOLL Not Available Start: 08-23-2023 End: 08-23-2023 ambulatory [facility] Start: 07-02-2023 End: 07-02-2023 Patient encounter procedure MD Tray Alfaro Work Phone: [facility] [place] Work Phone: Start: 07-02-2023 End: 07-02-2023 ambulatory MD Tray Alfaro Work Phone: [facility] Work Phone: Start: 06-28-2023 End: 06-28-2023 Patient encounter procedure MD Tray Alfaro Work Phone: [facility] [place] Work Phone: Start: 06-28-2023 End: 06-28-2023 ambulatory MD Tray Alfaro Work Phone: [facility] Work Phone: Start: 06-16-2023 End: 06-16-2023 Patient encounter procedure MD Tray Alfaro Work Phone: [facility] [place] Work Phone: Start: 06-16-2023 End: 06-16-2023 ambulatory MD Tray Alfaro Work Phone: [facility] Work Phone: Start: 06-14-2023 Office outpatient vi sit 25 minutes Alicia Brit [facility] Start: 06-14-2023 End: 06-15-2023 ambulatory Ni OLIVARES [facility] Other Start: 06-14-2023 End: 06-14-2023 Patient encounter procedure Ni OLIVARES [facility] Start: 12-20-2022 End: 12-21-2022 ambulatory Ni OLIVARES Facility:[facility] Start: 12-20-2022 End: 12-20-2022 Patient encounter procedure Ni OLIVARES [facility] Start: 12-02-2022 End: 12-02-2022 ambulatory Ni OLIVARES Facility:[facility] Start: 11-29-2022 End: 11-29-2022 ambulatory Alicia Brit Other [facility] Other Start: 11-29-2022 Office outpatient vi sit 25 minutes Alicia Brit [facility] Start: 11-18-2022 End: 11-19-2022 ambulatory MD ALIICA PEREA Facility:[facility] Start: 11-18-2022 End: 11-19-2022 ambulatory Ni OLIVARES Facility:[facility] Start: 11-10-2022 End: 11-24-[address] TRAY ALFARO . Facility:[facility] Start: 11-08-2022 End: 11-08-[address] TRAY ALFARO . Facility:[facility] Start: 11-06-2022 End: 11-07-[address] TRAY ALFARO . Facility: Start: 10-29-2022 End: 10-30-2022 ambulatory Milton BRAUN Facility:[facility] Start: 10-29-2022 End: 10-29-2022 Patient encounter procedure Milton BRAUN [facility] Start: 10-26-2022 End: 10-27-2022 ambulatory IRIS CORONEL Facility:[facility] Start: 10-22-2022 End: 10-23-[address] MILTON BRAUN . Facility:[facility] Start: 10-15-2022 End: 10-16-[address] TRAY ALFARO . Facility:[facility] Start: 10-14-2022 End: 10-15-2022 ambulatory IRIS CORONEL Facility: Start: 10-07-2022 End: 10-07-2022 ambulatory Ni OLIVARES Facility:[facility] Start: 10-07-2022 End: 10-07-2022 Admission to same day surgery center Ni OLIVARES [facility] Start: 09-15-2022 End: 09-15-2022 ambulatory Alicia Brit Other [facility] [employer] Other Start: 09-15-2022 Office outpatient vi sit 25 minutes Alicia Brit [facility] Start: 09-14-2022 End: 09-15-2022 ambulatory Ni OLIVARES Facility:[id number] Start: 09-13-2022 End: 09-14-2022 ambulatory ALICIA BRIT Facility:[facility] Start: 09-06-2022 End: 09-07-2022 ambulatory Ni OLIVARES Facility:[facility] Start: 09-06-2022 End: 09-06-2022 Patient encounter procedure Ni OLIVARES [facility] Start: 09-01-2022 End: 09-02-[address] NI OLIVARES Facility:[facility] Start: 08-24-2022 End: 08-25-[address] TRAY ALFARO . Facility:[facility] Start: 08-22-2022 End: 08-22-[address] TRAY ALFARO . Facility:[facility] Start: 08-21-2022 End: 08-22-[address] TRAY ALFARO . Facility:[facility] Start: 08-18-2022 End: 08-19-2022 ambulatory ALICIA BRIT Facility:[facility] Start: 08-16-2022 ambulatory Ni OLIVARES Facility:[facility] [place] Start: 08-11-2022 ambulatory Facility:U Start: 08-11-2022 Patient encounter status MD Iglesias Work Phone: [facility] Start: 08-11-2022 End: 08-15-2022 Encounter for preprocedural cardiovascular examination MD Tray Alfaro Work Phone: [facility] Start: 08-11-2022 End: 08-15-2022 Evaluation and management of inpatient MD Tray Alfaro Work Phone: [facility] Work Phone: Start: 08-11-2022 End: 08-14-2022 ambulatory THADDEUS DAUGHERTY Facility:[facility] Start: 08-02-2022 End: 08-02-[address] TRAY ALFARO . Facility:[facility] Start: 07-08-2022 End: 07-23-[address] TRAY ALFARO . Facility:[facility] Start: 06-01-2022 End: 06-01-2022 ambulatory Alicia Brit Other [employer] Other Start: 06-01-2022 Office outpatient vi sit 25 minutes Alicia Brit [facility] Start: 05-24-2022 End: 11-29-2022 ambulatory ALICIA BRIT Facility:[facility] Start: 02-03-2022 End: 02-04-[address] TRAY ALFARO . Facility:[facility] Start: 11-24-2021 End: 11-24-2021 ambulatory Alicia Brit Other [facility] Other Start: 11-24-2021 Office outpatient vi sit 25 minutes Alicia Brit [facility] Start: 10-26-2021 End: 10-26-2021 Patient encounter procedure Milton BRAUN [facility] Start: 05-26-2021 End: 05-26-2021 ambulatory Alicia Brit Other [facility] Other Start: 05-26-2021 Office outpatient vi sit [...] T SH, LIPID, T4, FT3, CMP #### [facility] [address] [place] [address] Dr. Alicia Patel Start: 10-07-2022 Extracorporeal shock wave lithotripsy of calculus of kidney Ni OLIVARES Start: 08-21-2022 PSA screening ALICIA QAD IR Comment on above: Performed By: #### P SAD #### [facility] [address] [place] [address] Dr. Alicia Patel Start: 08-13-2022 Cystoscopy MD Tray Alfaro Work Phone: Start: 08-11-2022 Plain chest X-ray MD Iglesias Work Phone: Start: 08-01-2019 Transurethral prostatectomy Milton BRAUN Start: 07-04-2019 Biopsy of prostate Rohan BRAUN Start: 06-27-2019 cystoscopy, bilatera l, ureteroscopy, laser lithotripsy Milton BRAUN ear surgery Milton BRAUN ear surgery Ni OLIVARES Plan of Treatment Date Care Activity Detail Author Start: 08-15-2022 [facility] Start: 08-14-2022 Microbial culture of sputum [facility] Start: 08-14-2022 Aerobic Culture Aerobic Culture [place] Start: 08-14-2022 Investigation of tra nsfusion reaction Gram Stain [facility] Start: 08-11-2022 Hospital admission [place] Start: 08-11-2022 Referral to cab starter [facility] Start: 08-11-2022 Referral to contract clerk automobile [facility] Start: 08-11-2022 Referral to urologist [facility] Chest WO contrast [facility] Patient referral [facility] Work Phone: Renal function 1999 panel - Serum or Plasma [facility] Renal function 1999 panel - Serum or Plasma [facility] Immunizations Immunization Date Immunization Notes Care Provider Fa ciliraman 05-02-2023 pneumococcal 20-marco nt conjugate vaccine Ni MARSHALL [facility] 05-02-2023 tetanus toxoid, redu martha diphtheria toxoid, and acellular pertussis vaccine, adsorbed Nichandu OLIVARES [facility] 03-29-2022 SARS-CoV-2 (COVID-19 ) [id number] Ni MARSHALL [facility] 05-18-2021 SARS-CoV-2 (COVID-19 ) Ad26 vaccine, recombinant Ni OLIVARES [facility] 03-30-2021 influenza virus vaccine, unspecified formulation Ni OLIVARES [facility] 09-01-2020 SARS-CoV-2 (COVID-19 ) Ad26 vaccine, recombinant Ni OLIVARES [facility] 06-27-2020 SARS-CoV-2 (COVID-19 ) Ad26 vaccine, recombinant Milton BRAUN [facility] 04-18-2020 influenza virus vaccine, unspecified formulation Ni OLIVARES [facility] 02-05-2020 zoster vaccine recombinant Ni re3D [facility] 12-06-2019 zoster vaccine recombinant Ni re3D [facility] 04-04-2019 influenza virus vaccine, unspecified formulation Milton BRAUN [facility] 04-05-2017 influenza virus vaccine, unspecified formulation Ni OLIVARES [facility] 04-05-2017 pneumococcal conjuga te vaccine, 13 valent Ni OLIVARES [facility] 04-12-2016 influenza, unspecifi ed formulation Ni OLIVARES [facility] Payers Date Payer Category Payer Self-pay [id number] 1959 Private Health Insurance [id number] 1959 Private Health Insurance [id number] 1942 Unknown [id number] 2.16.840.1.209984.3.579.2.356 1942 Unknown [id number] 2.16.840.1.952205.3.579.2.593 1942 Unknown [id number] 2.16.840.1.049556.3.579.2.593 1942 Unknown [id number] 2.16.840.1.119386.3.579.2.593 1942 Unknown [id number] 2.16.840.1.258748.3.579.2.593 1942 Unknown [id number] 2.16.840.1.559329.3.579.2.593 1942 Unknown [id number] 2.16.840.1.882906.3.579.2.593 1942 Unknown [id number] 2.16.840.1.765291.3.579.2.593 1942 Unknown [id number] 2.16.840.1.200910.3.579.2.593 1942 Unknown [id number] 2.16.840.1.591719.3.579.2.593 1942 Unknown [id number] 2.16.840.1.620981.3.579.2.593 1942 Unknown [id number] 2.16.840.1.902108.3.579.2.593 1942 Unknown [id number] 2.16.840.1.184366.3.579.2.593 1942 Unknown [id number] 2.16.840.1.611588.3.579.2.593 1942 Unknown [id number] 2.16.840.1.913689.3.579.2.593 1942 Unknown [id number] 2.16.840.1.380398.3.579.2.593 1942 Unknown [id number] 2.16.840.1.700398.3.579.2.593 1942 Unknown [id number] 2.16.840.1.536665.3.579.2.593 1942 Unknown [id number] 2.16.840.1.340758.3.579.2.593 1942 Unknown [id number] 2.16.840.1.816039.3.579.2.593 1942 Unknown [id number] 2.16.840.1.685900.3.579.2.727 1942 Unknown [id number] 2.16.840.1.515442.3.579.2.727 1942 Unknown [id number] 2.16.840.1.881545.3.579.2.727 1942 Unknown [id number] 2.16.840.1.045805.3.579.2.727 1942 Unknown [id number] 2.16.840.1.588666.3.579.2.727 1942 Unknown [id number] 2.16.840.1.723990.3.579.2.727 1942 Unknown [id number] 2.16.840.1.876660.3.579.2.727 1942 Unknown [id number] 2.16.840.1.813858.3.579.2.727 1942 Unknown [id number] 2.16.840.1.502083.3.579.2.727 1942 Unknown [id number] 2.16.840.1.244571.3.579.2.727 1942 Unknown [id number] 2.16.840.1.515524.3.579.2.727 1942 Unknown [id number] 2.16.840.1.430886.3.579.2.1259 1942 Unknown [id number] 2.16.840.1.953259.3.579.2.1259 Medicare [id number] 2.16.8 40.1.319438.19 Medicare Medicare [id number] Medicare [id number] 2.1 6.840.1.430545.19 Unknown Hussein BC/BS [id number] Unknown [id number] 2.16.840.1.411556.3.579.2.531 Unknown [id number] 2.16.840.1.063470.3.579.2.531 Unknown [id number] 2.16.840.1.148490.3.579.2.531 Unknown [id number] 2.16.840.1.659428.3.579.2.531 Social History Date Type Detail Facility Start: 08-18-2020 End: 12-20-2023 Tobacco smoking status Ex-smoker (finding) [facility] Other Comment on above: quit in 1978 Sex Assigned At Male [facility] Other Start: 1942 Sex Assigned [facility] Tobacco smoking status Never [facility] Comment on above: quit in 1978 Medical Equipment Procedure Code Equipment Code Equipment Origin al Text Equipment Identifier Dates Cystoscopy, with ureteral calculus manipulation and stent placement Polymeric ureteral stent ()[id number] FDA Start: 06-15-2019 Cystoscopy, with ureteral calculus manipulation and stent placement Polymeric ureteral stent ()[id number] FDA Start: 06-15-2019 Cystoscopy, with ureteral calculus manipulation and stent placement Polymeric ureteral stent ()[id number] FDA Start: 08-13-2022 Biopsy, prostate, with US guidance Polymeric ureteral stent ()[id number] FDA Start: 07-04-2019 CYSTOSCOPY URETEROSCOPY Ni OLIVARES MD 12/02/22 Unknown Ureter R {[id number] FDA Start: 12-02-2022 Goals Date Patient Goal Desired Activity /State Functional Status Date Assessment Result Facility 12-20-2022 Functional Status N/A [facility] 09-06-2022 Functional Status N/A [facility] 08-15-2022 Functional status Patient at Baseline [facility] Work Phone: Mental Status Date Assessment Result Facility 08-15-2022 Cognitive function Cognitive Sta tus Patient at Baseline [facility] Work Phone: Clinical Notes 05-26-2021 to 05-21-2024 Note Date & Type Note Facility 05-21-2024 Note [facility] Subjective Victorino Smyth is a 83 y.o. year old male patient being seen for 6 mo follow up CAD, hyperlipidemia, and hypertension. Had labs w/ lipid panel last month. Still has occasional chest pain. The other day the episode of chest pain was left-sided, but high . He states this usually occurs with rest, and then subsides when he gets up to do something. Says his APONTE is probably the same, maybe a little more demanding . Patient Active Problem List Diagnosis Benign prostatic hyperplasia Chest pain Coronary atherosclerosis Essential hypertension Hyperlipidemia 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CMS/HCC) Type 2 diabetes mellitus without complication (CMS/HCC) Pre-operative cardiovascular examination Carpal tunnel syndrome Acute renal failure (CMS/HCC) Anticoagulated Bilateral ureteral obstruction BPH associated with nocturia Chronic obstructive pulmonary disease (COPD) (CMS/HCC) Diabetes (CMS/HCC) Erectile dysfunction H/O: hypothyroidism Hematuria High prostate specific antigen (PSA) Hydronephrosis with ureteral calculus Hyperkalemia Hyperplastic colon polyp Kidney stone Left renal atrophy Lung nodule Metabolic acidosis Myocardial infarct (CMS/HCC) Occult blood in stools Postprandial diarrhea Prostate cancer (CMS/HCC) Prostatic enlargement Rheumatoid arthritis (CMS/HCC) Right distal ureteral calculus Secondary hyperparathyroidism (CMS/HCC) CKD (chronic kidney disease) stage 3, GFR 30-59 ml/min (CMS/HCC) Clot retention of urine Family History Problem Relation Name Age of Onset No Known Problems Mother No Known Problems Father Social History Tobacco Use Smoking status: Never Smokeless tobacco: Never Substance Use Topics Alcohol use: Yes Comment: humberto Gleason is seen for follow up. He is an 83 yo man with prior history of CAD and drug eluting stenting of LAD in March of 2013, and then developed acute VT related to ISR of the LAD stent on 09/28/2016 and underwent emergent Promus JOSE RAMON stent to the LAD at [facility], was on Brilinta but currently on [...] of Ranexa and increasing Imdur dosage. He previously has been treated for renal stones and underwent a stent procedure. The stent was removed. Today he reports that he has been doing reasonably well. He does have atypical chest pain when he lies in bed and wrapped his arms around his chest. He continues to have shortness of breath with exertion relieved by rest. He sees Dr Doty from pulmonary. He has no claudication. He has mild lower extremity edema. Review of Systems Cardiovascular: Positive for chest pain ( occasionally ), dyspnea on exertion and leg swelling. Musculoskeletal: Positive for arthritis, back pain and joint pain. Neurological: Positive for light-headedness. All other systems reviewed and are negative. Objective Visit Vitals BP 136/64 (BP Location: Right arm, Patient Position: Sitting) Pulse 91 Ht 1.753 m (5' 9 ) Wt 125 kg (275 lb) SpO2 94% BMI 40.61 kg/m??? Smoking Status Never BSA 2.47 m??? Physical Exam Constitutional: Appearance: He is [...] General: No swelling. Cervical back: Neck supple. Right lower le+ Pitting Edema present. Left lower le+ Pitting Edema present. Skin: General: Skin is warm and dry. Neurological: General: No focal deficit present. Mental Status: He is alert and oriented to person, place, and time. Psychiatric: Mood and Affect: Mood normal. Behavior: Behavior is cooperative. Judgment: Judgment normal. Allergies Allergies All (more content not included)... [facility] 11-01-2023 Note Patient here for 3 m o follow up hypotension, CAD, and hyperlipidemia. Amlodipine was stopped at last apt in Jul 2023. He brought in a log of his BP's. Says he gets intermittent sharp chest pain at rest. He says it's relieved when he gets up and starts moving around. Says as long as he stays active, he doesn't have the pain. APONTE remains unchanged. Review of Systems Cardiovascular: Positive for chest pain ( sharp ) and dyspnea on exertion. Musculoskeletal: Positive for arthritis, back pain and joint pain. Neurological: Positive for light-headedness ( woozy ). All other systems reviewed and are negative. [facility] 11-01-2023 Note Cardiovascular Medic [facility] SUBJECTIVE Chief Complaint Patient presents with Coronary Artery Disease Hypertension Victorino Smyth is a 83 y.o. male here for follow-up. HPI PMHx: CAD, HLD, HTN, COVID 07/2023 -CAD and drug eluting stenting of LAD in March of 2013, and then developed acute VT related to ISR of the LAD stent on 09/28/2016 and underwent emergent Promus JOSE RAMON stent to the LAD at [facility], was on Brilinta but currently on aspirin only. At that time he had mild RCA and Circumflex disease. 11/01/2023 Surgeon has been monitoring his appendix - it was not removed since he had appendicitis earlier this year. He has some intermittent chest pain, lasts seconds. Occurs at rest and resolves on its own. It is sporadic, does not occur often. He has had this for some time. He can be active, mow the grass, etc he doesn't get any chest pain. He has APONTE, this is stable. He follows with pulmonary. Denies orthopnea, palpitations, dizziness/LH. Patient Active Problem List Diagnosis Benign prostatic hyperplasia Chest pain Coronary atherosclerosis Essential hypertension Hyperlipidemia 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CMS/HCC) Type 2 diabetes mellitus without complication (CMS/HCC) Pre-operative cardiovascular examination Carpal tunnel syndrome Past Medical History: Diagnosis Date Abnormal ECG [...] Itching Penicillins Other ROS Cardiovascular: Positive for chest pain ( sharp ) and dyspnea on exertion. Musculoskeletal: Positive for arthritis, back pain and joint pain. Neurological: Positive for light-headedness ( woozy ). All other systems reviewed and are negative. OBJECTIVE Visit Vitals BP 138/60 (BP Location: Left arm, Patient Position: Sitting) Pulse 75 Ht 1.753 m (5' 9 ) Wt 117 kg (259 lb) SpO2 96% BMI 38.25 kg/m??? Smoking Status Never BSA 2.39 m??? Medications: Current Outpatient Medications: albuterol 90 mcg/actuation inhaler, Ventolin HFA 90 mcg/actuation aerosol inhaler inhale 2 puffs by mouth and INTO THE LUNGS every 4 hours if needed for shortness of breath, Disp: , Rfl: aspirin 81 mg EC tablet, in the morning., Disp: , Rfl: atorvastatin (Lipitor) 80 mg tablet, TAKE 1 TABLET BY MOUTH AT BEDTIME, Disp: 90 tablet, Rfl: 3 cholecalciferol (Vitamin D-3) 125 MCG (5000 UT) capsule, 1 capsule., Disp: , Rfl: glimepiride (Amaryl) 4 mg [...] Neck: Vascular: No carotid bruit. Cardiovascular: Rate and Rhythm: Normal rate and regular rhythm. Pulses: Normal pulses. Heart sounds: Normal heart sounds. Pulmonary: Effort: Pulmonary effort is normal. Breath sounds: Normal breath sounds. Abdominal: General: Bowel sounds are normal. Palpations: Abdomen is soft. Musculoskeletal: General: Normal range of motion. Cervical back: Neck supple. Right lower leg: Edema present. Left lower leg: Edema present. (more content not included)... [facility] 08-23-2023 Note Cardiovascular Medic ine [facility] SUBJECTIVE No chief complaint on file. Victorino Smyth is a 83 y.o. male here for follow-up. Patient here for 6 mo follow up CAD, hypertension, and hyperlipidemia. He was discharged from [facility] a few weeks ago for Covid-19. Feels much better and is still regaining his strength. Denies chest pain, palpitations, and lightheadedness/syncope. HPI PMHx: CAD, HLD, HTN -CAD and drug eluting stenting of LAD in March of 2013, and then developed acute VT related to ISR of the LAD stent on 09/28/2016 and underwent emergent Promus JOSE RAMON stent to the LAD at [facility], was on Brilinta but currently on [...] Cardiovascular: Rate an (more content not included)... [facility] 08-23-2023 Note Patient here for 6 m o follow up CAD, hypertension, and hyperlipidemia. He was discharged from [facility] a few weeks ago for Covid-19. Feels much better and is still regaining his strength. Denies chest pain, palpitations, and lightheadedness/syncope. Patient states his BP in the mornings before medications has been running around 100/55. Review of Systems Cardiovascular: Positive for dyspnea on exertion. Musculoskeletal: Positive for arthritis, back pain and joint pain. All other systems reviewed and are negative. [facility] 06-14-2023 Evaluation note Encounter Date Diagnosis Assessment Notes May, Diabetes mellitus with chronic kidney disease (ICD-10 - E11.22) He has wea-oxoevxf-c ependent type 2 diabetes and currently takes [...] and has normal B12 and folate level. [facility] Other 12-19-2023 Hospital Discharge instructions Patient Education [...] include: ?8 oz (237 mL) of milk, ydrahbc-efuodoynuspb-orgxp milk, and calcium- fortifiedfruit juice. Calcium-fortified means [...] ?Spinach (cooked), rhubarb, beets, sweet potatoes, and Niuean chard. ?Peanuts. ?Potato chips, occitan fries, and baked potatoes with skin on. ?Nuts and nut products. ?Chocolate. If you regularly take a diuretic medicine, make sure to eat at least 1 or 2 servings of fruits or vegetables that are high in potassium each day. These include: ?Avocado. ?Banana. ?Dukes, prune, carrot, or tomato juice. ?Baked potato. [...] magnesium, fish oil, or vitamin B6. Take juqn-yil-nymdxca and prescription medicines only as told by [...] Casseroles. Pizza. Lasagna. Frozen meals. Potato chips. Gambian fries. The items listed above may not [...] provider. Document Revised: 09/23/2022 Document Reviewed: 09/23/2022 Elsevier Patient Education 2022 Vedantu. Follow Up Care 02/04/2023 14:47:08 With:MARSHALL OLIVEROS, Ni Garcia, URL Address: [address] [place] [address] [place], [place] [id number]- When: Unknown [facility] [id number] Note [id number]:127[facility] 12-20-2022 NoteCystoscopy with Stent Removal ? Voiding after [...] if you have a fever over 100 degrees.[facility] 12-20-2022 Hospital Discharge instructions Patient Education [...] Care 12/07/2022 13:42:13 With:Ni OLIVARES Address: [address] [place] [phone]- Business (1) When:6 months Comments:Call for followup appointment. [...] those arrangements as well.Have a great day. [facility]06-05-2023 Evaluation note* Encounter Date Diagnosis Assessment Notes Treatment Notes Treatment Clinical Notes Nov, Diabetes mellitus wi th chronic kidney disease (ICD-10 - E11.22) He has lda-iaevafp-mseh ndent type 2 diabetes and currently takes [...] and has normal B12 and folate level. [facility] Other 05-24-2023 Note [id number]:127[facility] 10-07-2022 Hospital Discharge instructions Patient Education [...] Follow these instructions at home: Medicines Take fadn-isz-ajdrsqq and prescription medicines only as told by [...] 07/02/2008 Document Revised: 09/24/2019 Document Reviewed: 05/04/2017 [employer] Patient Education 2020 Vedantu. Follow Up Care 09/06/2022 10:38:13 With:Ni OLIVARES Address: [address] [place] [address] [place], [place] [id number] Business (1) When: Unknown Comments:We were able [...] prior to considering any other anesthesia procedures. [facility]04-13-2023 Evaluation + Plan noteExtracted from: Title:KALEN post op Author:Timothy Pittman MD Date:10/07/22 Plan Transfer/Discharge: Transfer/Discharge Discharge when meets criteria ( To home ). Extracted from: Title:KALEN GA Author:Timothy Pittman MD S. Date:10/07/22 Plan [place] Society of Anesthesiologists (ASA) physical status classification: Class III. Anesthetic Preoperative Plan: Anesthesia General. Future Appointments Appointment Date:10/29/2022 08:45:00 AM Scheduled Provider:Milton BRAUN MD Location:[facility] Appointment Type:URO Office Visit [facility]03-23-2023 Note [id number]:127[facility] 09-15-2022 Evaluation note* Encounter Date Diagnosis Assessment Notes Treatment Notes Treatment Clinical Notes Aug, Diabetes mellitus wi th chronic kidney disease (ICD-10 - E11.22) He has qgv-lnbzqle-vzsz ndent type 2 diabetes and currently takes [...] have advised him to adequately hydrate himself. [facility] Other [id number] Hospital Discharge instructions Patient Education 09/06/2022 10:27:16 Kidney Stones, Jpuu-dn-Htht Kidney Stones Kidney stones are rock-like masses [...] Follow these instructions at home: Medicines Take eigr-bif-nkycdqr and prescription medicines only as told by [...] 11/29/2008 Document Revised: 10/30/2019 Document Reviewed: 10/30/2019 [employer] Patient Education 2019 Vedantu. Follow Up Care 08/17/2022 09:18:37 With:MARSHALL OLIVEROS, Ni Garcia, URL Address: [facility] [place] [id number]- When: Unknown [facility] 02-21-2023 Note [id number]:127[facility] 08-15-2022 Discharge summary Author Hiral Interiano [facility] August 15, 2022 1:50pm Note Date/Time August 15, 2022 1:50pm [facility] [address] [place], [place] [phone] Discharge Summary Signed Patient: Victorino Smyth MR#: [id number] : 1940 Acct:[id number] Age/Sex: 82 / M Adm Date: 3 Loc: Room: [address] [place] [address]: Hiral Interiano MD Copies to: [...] history of nephrolithiasis. He initially presented to [facility] ER with complaint of hypoglycemia and was found to have severe renal failure along with metabolic acidosis and hyperkalemia. CT scan at [facility] showed atrophic left kidney with obstructing stone in the right ureteropelvic junction. Patient was transferred to [facility] for further intervention. On arrival is noted [...] is also advised to follow-up with his cab starter in 4-week. CT scan at [facility] also showed 0.8 cm nodule on [...] Low-Cholesterol Additional Instructions: 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 Avoid NSAIDs for pain [...] office on Tuesday to schedule follow-up with Construction Equipment Overhauler. ) Documented By: Hiral Interiano MD 08/15/22 5220 Signed By: <Electronically signed by Hiral Interiano MD> 08/15/[address] [facility] Work Phone: 1(836) 437-674502-19-2023 Progress note Author Alicia Perea [facility] August 15, 2022 12:01pm Note Date/Time August 15, 2022 12:01pm [facility] [address] [place], [place] [phone] Nephrology Progress Note Signed Patient: Victorino Smyth MR#: [id number] : 1940 Acct:[id number] Age/Sex: 82 / M Adm Date: 3 Loc: 4N Room: 8M1137-5 Type: ADM IN Attending Dr: Hiral Interiano MD Copies to: ~ Date of Service: 08/15/2022 Subjective Subjective Narrative: This is a 82-year-old male with a medical history of coronary artery disease s/pPCI, nephrolithiasis, CKD, diabetes mellitus, hypertension, dyslipidemia was presented to the emergency room of [facility] for generalized weakness and low urine output. On evaluation emergency room patient was found to have a life- threatening hyperkalemia with serum potassium 7 mmol/L, acute kidney injurywith elevated serum creatinine 17.8 mg/dL, metabolic acidosis serum bicarbonate 13.5 mmol/L. He was given insulin D50 calcium gluconate in the [place] emergency room. He had a CAT scan abdomen pelvis done which showed obstructive kidney stones in the right UPJ and total atrophy of the left kidney. Case was discussed with the on-call urologist Dr. Olivares and recommended patient needs to be n.p.o. for surgical intervention. He was transferred to [facility] for further care. Patient is history of CKD due to the longstanding DM, HTN and recurrent KELSEA with baseline serum creatinine 1.4 to 1.6 mg/dL. He follows in my office for his CKD care. Patient after arrival at the [facility] hada repeat labs done which showed [...] visible mass Skin: No rashes or bruises COMPLAINTS COORDINATOR: Awake,Alert, following simple command Musculoskeletal: No joint [...] 10 Mg Tablet) 10 mg PO DAILY [facility] Stop: 08/16/23 08:59 Aspirin (Aspirin 81 Mg Tablet.Dr) 81 mg PO DAILY [facility] Stop: 08/12/23 08:59 Last Admin: 08/15/22 09:45 Dose: 81 mg Atorvastatin Calcium (Atorvastatin 40 Mg Tablet) 40 mg PO HS [facility] Stop: 08/11/23 21:59 Last Admin: 08/14/22 21:08 Dose: 40 mg Dextrose (Dextrose 50% In Water 25 Gm/50 Ml Syringe) 0 gm IV-PUSH PRN PRN PRN Reason: Hypoglycemia Stop: 08/11/23 14:01 Doxycycline Hyclate (Doxycycline Hyclate 100 Mg Tablet) 100 mg PO BID [facility] Stop: 08/18/22 20:59 Last Admin: 08/15/22 09:45 Dose: 100 mg Glucose (Dextrose 40% Gel 15 Gm Tube) 0 gm PO PRN PRN PRN Reason: Hypoglycemia Stop: 08/11/23 14:01 Guaifenesin (Guaifenesin 600 Mg Tab.Er.12h) 1,200 mg PO BID [facility] Stop: 08/12/23 20:59 Last Admin: 08/15/22 09:45 [...] Units/3 Ml Insuln.Pen) 0 units SUBCUT TID.[facility]; Protocol Stop: 08/11/23 16:59 Last Admin: 08/15/22 09:46 Dose: 5 units Insulin Glargine (Insulin Glargine 300 Units/3 Ml Insuln.Pen) 5 units SUBCUT DAILY [facility] Stop: 08/13/23 08:59 Last Admin: 08/15/22 09:47 Dose: 5 units Melatonin (Melatonin 5 Mg Tablet) 5 mg PO QHS PRN PRN Reason: insomnia Stop: 08/14/23 21:59 Last Admin: 08/14/22 21:08 Dose: 5 mg Metoprolol Tartrate (Metoprolol Tartrate 50 Mg Tablet) 50 mg PO BID [facility] Stop: 08/11/23 20:59 Last Admin: 02/19/23 09:45 Dose: 50 mg Nitroglycerin (Nitroglycerin 0.4 [...] office. Documented By: Alicia Perea MD 08/15/22 1154 Signed By: <Electronically signed by Alicia Perea MD> 08/15/[address] [facility] Work Phone: 1(690) 517-397202-19-2023 Progress note Author Cade Alvarez [facility] August 15, 2022 11:31am Note Date/Time August 15, 2022 11:31am [facility] [address] [place] [address] Cardiology Progress Note Signed Patient: Victorino Smyth MR#: [id number] : 1940 Acct:[id number] Age/Sex: 82 / M Adm Date: 3 Loc: 4N Room: [address] [place] [address] Type: ADM IN Attending Dr: Hiral Interiano [...] patient has cardiology follow-up with his primary cab starter in [place] within 4 weeks of discharge. (2) CAD (coronary artery disease): Code(s): I25.10 - Atherosclerotic heart disease of [place] coronary artery without angina pectoris Status: Acute [...] signed by Cade Alvarez MD> 08/15/22 1131 [facility] Work Phone: 1(448) 470-643102-18-2023 Progress note Author Hiral Itneriano [facility] August 14, 2022 2:57pm Note Date/Time August 14, 2022 2:49pm [facility] [address] [place] [address] Hospitalist Progress Note Signed Patient: Victorino Smyth MR#: [id number] : 1940 Acct:[id number] Age/Sex: 82 / M Adm Date: 3 Loc: 4N Room: [address] [place] [address] Type: ADM IN Attending Dr: Hiral Interiano [...] Vial SUBCUT 08/12/23 21:59 Not Given Q8HR MAURICIO Hydralazine HCl 10 mg 08/11/22 13:41 08/14/22 [...] Insuln.Pen SUBCUT 08/11/23 16:59 Not Given TID.[facility] Protocol Insulin Glargine 5 units 08/13/22 [...] days. Documented By: Hiral Interiano MD 08/14/22 1448 Signed By: <Electronically signed by Hiral Interiano MD> 08/14/[address] [facility] Work Phone: 1(888) 332-785602-18-2023 Progress note Author Alicia Perea [facility] August 14, 2022 11:55am Note Date/Time August 14, 2022 11:55am [facility] [address] [place] [address] Nephrology Progress Note Signed Patient: Victorino Smyth MR#: [id number] : 1940 Acct:[id number] Age/Sex: 82 / M Adm Date: 3 Loc: 4N Room: [id number] Type: ADM IN Attending Dr: Hiral Interiano MD Copies to: ~ Date of Service: 08/14/2022 Subjective Subjective Narrative: This is a 82-year-old male with a medical history of coronary artery disease s/pPCI, nephrolithiasis, CKD, diabetes mellitus, hypertension, dyslipidemia was presented to the emergency room of [facility] for generalized weakness and low urine output. On evaluation emergency room patient was found to have a life- threatening hyperkalemia with serum potassium 7 mmol/L, acute kidney injurywith elevated serum creatinine 17.8 mg/dL, metabolic acidosis serum bicarbonate 13.5 mmol/L. He was given insulin D50 calcium gluconate in the [place] emergency room. He had a CAT scan abdomen pelvis done which showed obstructive kidney stones in the right UPJ and total atrophy of the left kidney. Case was discussed with the on-call urologist Dr. Olivares and recommended patient needs to be n.p.o. for surgical intervention. He was transferred to [facility] for further care. Patient is history of CKD due to the longstanding DM, HTN and recurrent KELSEA with baseline serum creatinine 1.4 to 1.6 mg/dL. He follows in my office for his CKD care. Patient after arrival at the [facility] hada repeat labs done which showed [...] visible mass Skin: No rashes or bruises COMPLAINTS COORDINATOR: Awake,Alert, following simple command Musculoskeletal: No joint [...] 81 Mg Tablet.Dr) 81 mg PO DAILY [facility] Stop: 08/12/23 08:59 Last Admin: 08/14/22 08:22 Dose: 81 mg Atorvastatin Calcium (Atorvastatin 40 Mg Tablet) 40 mg PO HS [facility] Stop: 08/11/23 21:59 Last Admin: 08/13/22 21:12 [...] 5,000 Unit/Ml Vial) 5,000 unit SUBCUT Q8HR [facility] Stop: 08/12/23 21:59 Last Admin: 08/14/22 06:05 Dose: Not Given Hydralazine HCl (Hydralazine 20 Mg/Ml Vial) 10 mg IV-PUSH Q4H PRN PRN Reason: Hypertension Stop: 08/11/23 13:40 Last Admin: 08/14/22 05:44 Dose: 10 mg Ceftriaxone Sodium (Rocephin) 1 gm in 50 mls @ 100 mls/hr IV Q24H [facility] Stop: 08/14/22 14:14 Last Admin: 08/13/22 15:07 Dose: 100 mls/hr Sodium Chloride (0.9% Sodium Chloride 1,000 Ml) 1,000 mls @ 0 mls/hr MISCELLANE.Q0M PRN PRN Reason: Dialysis Stop: 08/11/23 14:19 Last Infusion: 08/12/22 12:38 Dose: Infused Insulin Aspart (Insulin Aspart 300 Units/3 Ml Insuln.Pen) 0 units SUBCUT TID.[facility]; Protocol Stop: 08/11/23 16:59 Last Admin: 08/14/22 11:50 Dose: Not Given Insulin Glargine (Insulin Glargine 300 Units/3 Ml Insuln.Pen) 5 units SUBCUT DAILY [facility] Stop: 08/13/23 08:59 Last Admin: 08/13/22 08:45 Dose: Not Given Metoprolol Tartrate (Metoprolol Tartrate 50 Mg Tablet) 50 mg PO BID [facility] Stop: 08/11/23 20:59 Last Admin: 08/14/22 08:23 [...] Intraoperative study. Impression dictated by: Ifeanyi Perez Jr. DManoharOManohar08/13/2022 2:25 PM Dictation Location: [place] [address] Any impression(s) listed above is documentation that [...] <Electronically signed by Alicia Perea MD> 08/14/[address] [facility] Work Phone: 1(312) 816-643402-18-2023 Progress note Author Cade Alvarez [facility] August 14, 2022 11:21am Note Date/Time August 14, 2022 11:21am [facility] [address] [place] [address] Cardiology Progress Note Signed Patient: Victorino Smyth MR#: [id number] : 1940 Acct:[id number] Age/Sex: 82 / M Adm Date: 3 Loc: 4N Room: [address] [place] [address] Type: ADM IN Attending Dr: Hiral Interiano [...] normal Insight: fair Judgment: fair Objective Labs 02/18/23 04:33 08/14/22 04:33 Labs: Laboratory Results - last 24 hr 08/13/22 08/13/22 08/14/22 11:52 12:11 04:33 Corrected WBC 7.4 Uncorrected WBC Count 7.4 RBC 3.64 L Hgb 12.0 L Hct 35.4 L MCV 97.3 MCH 33.0 MCHC 33.9 RDW 13.5 Plt Count 121 L MPV 8.4 Neut % (Auto) 79.6 Lymph % (Auto) 7.8 [place] % (Auto) 11.4 Eos % (Auto) 1.0 Baso % (Auto) 0.2 Nucleat RBC Rel Count 0.1 Neut # (Auto) 5.9 Lymph # (Auto) 0.6 L [place] # (Auto) 0.8 Eos # (Auto) 0.1 [...] MPV Neut % (Auto) Lymph % (Auto) [place] % (Auto) Eos % (Auto) Baso % (Auto) Nucleat RBC Rel Count Neut # (Auto) Lymph # (Auto) [place] # (Auto) Eos # (Auto) Baso # [...] make sure that he has follow-up in [facility] within 4 weeks of discharge. (2) CAD (coronary artery disease): Assessment/Problem Details: Stable/quiescent. No ischemic complications with yesterday's urological procedure. Code(s): I25.10 - Atherosclerotic heart disease of [place] coronary artery without angina pectoris Status: Acute Plan: Medical recommendations as above. Plan Thank you very much for this kind consultation and for allowing us to participate in the care of this very pleasant patient Time spent with patient Time Spent With Patient (min): 30 Documented By: Cade Alvarez MD 08/14/22 1118 Signed By: <Electronically signed by Cade Alvarez MD> 08/14/[address] [facility] Work Phone: 1(284) 538-931802-17-2023 Progress note Author Hiral Interiano [facility] August 13, 2022 3:09pm Note Date/Time August 13, 2022 3:02pm [facility] [address] [place] [address] Hospitalist Progress Note Signed Patient: Victorino Smyth MR#: [id number] : 1940 Acct:[id number] Age/Sex: 82 / M Adm Date: 3 Loc: 4N Room: [address] [place] [address] Type: ADM IN Attending Dr: Hiral Interiano [...] Insuln.Pen SUBCUT 08/11/23 16:59 Not Given TID.[facility] Protocol Insulin Glargine 5 units 08/13/22 [...] signed by Hiral Interiano MD> 08/13/[address] [facility] Work Phone: 1([phone]) 788-248602-17-2023 Progress note Author Alicia Perea [facility] August 13, 2022 11:29am Note Date/Time August 13, 2022 11:25am [facility] [address] [place] [address] Nephrology Progress Note Signed Patient: Victorino Smyth MR#: [id number] : 1940 Acct:[id number] Age/Sex: 82 / M Adm Date: 3 Loc: Room: [address] [place] [address] Type: ADM IN Attending Dr: Hiral Interiano MD Copies to: ~ Date of Service: 08/13/2022 Subjective Subjective Narrative: This is a 82-year-old male with a medical history of coronary artery disease s/pPCI, nephrolithiasis, CKD, diabetes mellitus, hypertension, dyslipidemia was presented to the emergency room of [facility] for generalized weakness and low urine output. On evaluation emergency room patient was found to have a life- threatening hyperkalemia with serum potassium 7 mmol/L, acute kidney injurywith elevated serum creatinine 17.8 mg/dL, metabolic acidosis serum bicarbonate 13.5 mmol/L. He was given insulin D50 calcium gluconate in the [place] emergency room. He had a CAT scan abdomen pelvis done which showed obstructive kidney stones in the right UPJ and total atrophy of the left kidney. Case was discussed with the on-call urologist Dr. Olivares and recommended patient needs to be n.p.o. for surgical intervention. He was transferred to [facility] for further care. Patient is history of CKD due to the longstanding DM, HTN and recurrent KELSEA with baseline serum creatinine 1.4 to 1.6 mg/dL. He follows in my office for his CKD care. Patient after arrival at the [facility] hada repeat labs done which showed [...] visible mass Skin: No rashes or bruises COMPLAINTS COORDINATOR: Awake,Alert, following simple command Musculoskeletal: No joint [...] 81 Mg Tablet.) 81 mg PO DAILY [facility] Stop: 08/12/23 08:59 Last Admin: 08/13/22 08:44 Dose: Not Given Atorvastatin Calcium (Atorvastatin 40 Mg Tablet) 40 mg PO HS [facility] Stop: 08/11/23 21:59 Last Admin: 08/12/22 [...] 50 mls @ 100 mls/hr IV Q24H [facility] Last Admin: 08/12/22 16:24 Dose: 100 mls/hr Azithromycin (Zithromax) 500 mg in 250 mls @ 250 mls/hr IV Q24H [facility] Last Admin: 08/12/22 15:06 Dose: 250 mls/hr Sodium Chloride (0.9% Sodium Chloride 1,000 Ml) 1,000 mls @ 0 mls/hr MISCELLANE.Q0M PRN PRN Reason: Dialysis Stop: 08/11/23 14:19 Last Infusion: 08/12/22 12:38 Dose: Infused Insulin Aspart (Insulin Aspart 300 Units/3 Ml Insuln.Pen) 0 units SUBCUT TID.[facility]; Protocol Stop: 08/11/23 16:59 Last Admin: 08/13/22 08:44 Dose: Not Given Insulin Glargine (Insulin Glargine 300 Units/3 Ml Insuln.Pen) 5 units SUBCUT DAILY [facility] Stop: 08/13/23 08:59 Last Admin: 08/13/22 08:45 Dose: Not Given Metoprolol Tartrate (Metoprolol Tartrate 50 Mg Tablet) 50 mg PO BID [facility] Stop: 08/11/23 20:59 Last Admin: 08/13/22 [...] physician into a diagnostic report(s) for Victorino Bryan Smyth. I have reviewed the report(s) and [...] output Documented By: Alicia Perea MD 08/13/22 112 Signed By: <Electronically signed by Alicia Perea MD> 08/13/22 1129 [facility] Work Phone: 1(797) 114-333602-17-2023 Progress note Author Cade Alvarez [facility] August 13, 2022 9:40am Note Date/Time August 13, 2022 9:35am [facility] [address] [place] [address] Cardiology Progress Note Signed Patient: Victorino Smyth MR#: [id number] : 1940 Acct:[id number] Age/Sex: 82 / M Adm Date: 3 Loc: Room: [address] [place] [address] Type: ADM IN Attending Dr: Hiral Interiano [...] MPV Neut % (Auto) Lymph % (Auto) [place] % (Auto) Eos % (Auto) Baso % (Auto) Nucleat RBC Rel Count Neut # (Auto) Lymph # (Auto) [place] # (Auto) Eos # (Auto) Baso # [...] (PCR) IU/mL N/A HCV RNA PCR copy director log10 N/A Hepatitis C Interp 08/12/22 08/12/22 08/13/22 19:37 21:06 04:28 Corrected WBC 9.9 Uncorrected WBC Count 9.9 RBC 3.54 L Hgb 11.6 L Hct 34.2 L MCV 96.5 MCH 32.9 MCHC 34.1 RDW 13.7 Plt Count 129 L MPV 8.7 Neut % (Auto) 79.2 Lymph % (Auto) 9.6 [place] % (Auto) 9.8 Eos % (Auto) 0.9 Baso % (Auto) 0.5 Nucleat RBC Rel Count 0.1 Neut # (Auto) 7.8 H Lymph # (Auto) 0.9 L [place] # (Auto) 1.0 H Eos # (Auto) [...] RNA (PCR) IU/mL HCV RNA PCR copy director log10 Hepatitis C Interp 08/13/22 08/13/22 04:28 05:25 Corrected WBC Uncorrected WBC Count RBC Hgb Hct MCV MCH MCHC RDW Plt Count MPV Neut % (Auto) Lymph % (Auto) [place] % (Auto) Eos % (Auto) Baso % (Auto) Nucleat RBC Rel Count Neut # (Auto) Lymph # (Auto) [place] # (Auto) Eos # (Auto) Baso # [...] RNA (PCR) IU/mL HCV RNA PCR copy director log10 Hepatitis C Interp A&P - Cardiology [...] Code(s): I25.10 - Atherosclerotic heart disease of [place] coronary artery without angina pectoris Status: Acute Plan: Preoperative recommendations as above. Plan Thank you very much for this kind consultation and for allowing us to participate in the care of this very pleasant patient Time spent with patient Time Spent With Patient (min): 30 Documented By: Cade Alvarez MD 08/13/22 0934 Signed By: <Electronically signed by Cade Alvarez MD> 08/13/[address] [facility] Work Phone: [phone]) 216-839902-16-2023 Progress note Author Hiral Interiano [facility] August 12, 2022 4:04pm Note Date/Time August 12, 2022 4:04pm [facility] [address] [place] [address] Hospitalist Progress Note Signed Patient: Victorino Smyth MR#: [id number] : 1940 Acct:[id number] Age/Sex: 82 / M Adm Date: 3 Loc: Room: [address] [place] [address] Type: ADM IN Attending Dr: Hiral Interiano [...] Insuln.Pen SUBCUT 08/11/23 16:59 Not Given TID.[facility] Protocol Metoprolol Tartrate 50 mg 08/11/22 [...] kidney disease: Plan: Patient was transferred from [place] ER when found to have acute kidney [...] acidosis. Documented By: Hiral Interiano MD 08/12/22 155 Signed By: <Electronically signed by Hiral Interiano MD> 08/12/[address] [facility] Work Phone: 1(680) 732-390202-16-2023 Progress note Author Alicia Perea [facility] August 12, 2022 11:29am Note Date/Time August 12, 2022 11:24am [facility] [address] [place] [address] Nephrology Progress Note Signed Patient: Victorino Smyth MR#: [id number] : 1940 Acct:[id number] Age/Sex: 82 / M Adm Date: 3 Loc: Room: [address] [place] [address] Type: ADM IN Attending Dr: Hiral Interiano MD Copies to: ~ Date of Service: 08/12/2022 Subjective Subjective Narrative: This is a 82-year-old male with a medical history of coronary artery disease s/pPCI, nephrolithiasis, CKD, diabetes mellitus, hypertension, dyslipidemia was presented to the emergency room of [facility] for generalized weakness and low urine output. On evaluation emergency room patient was found to have a life- threatening hyperkalemia with serum potassium 7 mmol/L, acute kidney injurywith elevated serum creatinine 17.8 mg/dL, metabolic acidosis serum bicarbonate 13.5 mmol/L. He was given insulin D50 calcium gluconate in the [place] emergency room. He had a CAT scan abdomen pelvis done which showed obstructive kidney stones in the right UPJ and total atrophy of the left kidney. Case was discussed with the on-call urologist Dr. Olivares and recommended patient needs to be n.p.o. for surgical intervention. He was transferred to [facility] for further care. Patient is history of CKD due to the longstanding DM, HTN and recurrent KELSEA with baseline serum creatinine 1.4 to 1.6 mg/dL. He follows in my office for his CKD care. Patient after arrival at the [facility] hada repeat labs done which showed [...] visible mass Skin: No rashes or bruises COMPLAINTS COORDINATOR: Awake,Alert, following simple command Musculoskeletal: No joint [...] 50 mls @ 100 mls/hr IV Q24H [facility] Last Infusion: 08/11/22 21:49 Dose: Infused Azithromycin (Zithromax) 500 mg in 250 mls @ 250 mls/hr IV Q24H [facility] Last Admin: 08/11/22 16:00 Dose: 250 mls/hr Sodium Chloride (0.9% Sodium Chloride 1,000 Ml) 1,000 mls @ 0 mls/hr MISCELLANE.Q0M PRN PRN Reason: Dialysis Stop: 08/11/23 14:19 Last Admin: 08/12/22 10:24 Dose: 999 mls/hr Insulin Aspart (Insulin Aspart 300 Units/3 Ml Insuln.Pen) 0 units SUBCUT TID..[facility]; Protocol Stop: 08/11/23 16:59 Last Admin: 08/12/22 08:07 Dose: Not Given Metoprolol Tartrate (Metoprolol Tartrate 50 Mg Tablet) 50 mg PO BID [facility] Stop: 08/11/23 20:59 Last Admin: 08/12/22 [...] Rehan Fuentes M.D.08/11/2022 4:10 PM Dictation Location: [place] [address] Any impression(s) listed above is documentation that [...] output * Documented By: Alicia Perea MD 08/12/22 1122 Signed By: <Electronically signed by Alicia Perea MD> 08/12/22 6811 [facility] Work Phone: [phone]) 729-510402-16-2023 Progress note Author Cade Alvarez [facility] August 12, 2022 10:04am Note Date/Time August 12, 2022 10:05am [facility] [address] [place] [address] Cardiology Progress Note Signed Patient: Victorino Smyth MR#: [id number] : 1940 Acct:[id number] Age/Sex: 82 / M Adm Date: 3 Loc: Room: [address] [place] [address] Type: ADM IN Attending Dr: Hiral Interiano [...] % (Auto) N/A Lymph % (Auto) N/A [place] % (Auto) N/A Eos % (Auto) N/A Baso % (Auto) N/A Nucleat RBC Rel Count N/A Neut # (Auto) N/A Lymph # (Auto) N/A [place] # (Auto) N/A Eos # (Auto) N/A [...] MPV Neut % (Auto) Lymph % (Auto) [place] % (Auto) Eos % (Auto) Baso % (Auto) Nucleat RBC Rel Count Neut # (Auto) Lymph # (Auto) [place] # (Auto) Eos # (Auto) Baso # [...] MPV Neut % (Auto) Lymph % (Auto) [place] % (Auto) Eos % (Auto) Baso % (Auto) Nucleat RBC Rel Count Neut # (Auto) Lymph # (Auto) [place] # (Auto) Eos # (Auto) Baso # [...] % (Auto) 88.0 Lymph % (Auto) 4.4 [place] % (Auto) 7.4 Eos % (Auto) 0.0 Baso % (Auto) 0.2 Nucleat RBC Rel Count 0.0 Neut # (Auto) 11.8 H Lymph # (Auto) 0.6 L [place] # (Auto) 1.0 H Eos # (Auto) [...] MPV Neut % (Auto) Lymph % (Auto) [place] % (Auto) Eos % (Auto) Baso % (Auto) Nucleat RBC Rel Count Neut # (Auto) Lymph # (Auto) [place] # (Auto) Eos # (Auto) Baso # [...] Code(s): I25.10 - Atherosclerotic heart disease of [place] coronary artery without angina pectoris Status: Acute Plan: Preoperative recommendations as above. Plan Thank you very much for this kind consultation and for allowing us to participate in the care of this very pleasant patient Time spent with patient Time Spent With Patient (min): 30 Documented By: Cade Alvarez MD 08/12/22 0959 Signed By: <Electronically signed by Cade Alvarez MD> 08/12/[address] [facility] Work Phone: [phone] 127-804402-15-2023 Consult note Author Alicia Perea [facility] August 11, 2022 5:46pm Note Date/Time August 11, 2022 4:00pm [facility] [address] [place] [address] Nephrology Consult Note Signed with Addenda Patient: Victorino Smyth MR#: [id number] : 1940 Acct:[id number] Age/Sex: 82 / M Adm Date: 3 Loc: Room: [address] [place] [address] Type: ADM IN Attending Dr: Hiral Interiano MD Copies to: MD Tray Campoverde MD Mazhar Rahman, MD~ ADDENDUM1 patient was seen and examined during HD and case was d/w HD RN. No issues were reported by patient and RN Addendum Documented By: Alicia Perea MD 08/11/221745 Addendum Signed By: <Electronically signed by Alicia Perea MD> 08/11/22 174 Providers Consult Date: 08/11/22 Requesting Provider: Hiral Interiano MD Primary Care Provider: Tray Alfaro MD [facility] Reason for Consult: KELSEA on CKD, hyperkalemia, metabolic acidosis management History of Present Illness: This is a 82-year-old male with a medical history of coronary artery disease s/pPCI, nephrolithiasis, CKD, diabetes mellitus, hypertension, dyslipidemia was presented to the emergency room of [facility] for generalized weakness and low urine output. On evaluation emergency room patient was found to have a life- threatening hyperkalemia with serum potassium 7 mmol/L, acute kidney injurywith elevated serum creatinine 17.8 mg/dL, metabolic acidosis serum bicarbonate 13.5 mmol/L. He was given insulin D50 calcium gluconate in the [place] emergency room. He had a CAT scan abdomen pelvis done which showed obstructive kidney stones in the right UPJ and total atrophy of the left kidney. Case was discussed with the on-call urologist Dr. Olivares and recommended patient needs to be n.p.o. for surgical intervention. He was transferred to [facility] for further care. Patient is history of CKD due to the longstanding DM, HTN and recurrent KELSEA with baseline serum creatinine 1.4 to 1.6 mg/dL. He follows in my office for his CKD care. Patient after arrival at the [facility] hada repeat labs done which showed [...] mg PO HS MAURICIO Stop: 08/11/23 21:59 Dextrose (Dextrose 50% In [...] 250 mls @ 250 mls/hr IV Q24H [facility] Sodium Chloride (0.9% Sodium Chloride 1,000 Ml) 1,000 mls @ 0 mls/hr MISCELLANE .Q0M PRN PRN Reason: Dialysis Stop: 08/11/23 14:19 Insulin Aspart (Insulin Aspart 300 Units/3 Ml Insuln.Pen) 0 units SUBCUT TID.WM.[facility]IC[facility]; Protocol Stop: 08/11/23 16:59 Metoprolol Tartrate (Metoprolol [...] visible mass Skin: No rashes or bruises COMPLAINTS COORDINATOR: Awake,Alert, following simple command Musculoskeletal: No joint [...] Patient consented for dialysis. I consulted the warehouse order puller for hemodialysis catheter placement which was placed [...] team. Documented By: Alicia Perea MD 08/11/22 1555 Signed By: <Electronically signed by Alicia Perea MD> 08/11/[address] [facility] Work Phone: [phone] 490-639202-15-2023 Consult note Author Cade Alvarez [facility] August 11, 2022 4:47pm Note Date/Time August 11, 2022 4:36pm [facility] [address] [place] [address] Cardiology Consult Note Signed Patient: Victorino Smyth MR#: [id number] : 1940 Acct:[id number] Age/Sex: 82 / M Adm Date: 3 Loc: Room: [address] [place] [address] Type: ADM IN Attending Dr: Hiral Interiano [...] syndrome in 2017. Patient initially presented to [place] emergency department complaining of shortness of breath [...] # (Auto) N/A Lymph # (Auto) N/A [place] # (Auto) N/A Eos # (Auto) N/A [...] nonspecific abnormality, ST segment, and/or T wave VT, pacemaker, normal Normal tracing: no change compared [...] Code(s): I25.10 - Atherosclerotic heart disease of [place] coronary artery without angina pectoris Plan Thank you very much for this kind consultation and for allowing us to participate in the care of this very pleasant patient Documented By: Cade Alvarez MD 08/11/22 1631 Signed By: <Electronically signed by Cade Alvarez MD> 08/11/[address] [facility] Work Phone: [phone]) [phone] Consult note Author Ni Olivares [facility] August 11, 2022 3:24pm Note Date/Time August 11, 2022 3:24pm [facility] [address] [place] [address] Urology Consult Note Signed Patient: Victorino Smyth MR#: [id number] : 1940 Acct:[id number] Age/Sex: 82 / M Adm Date: 3 Loc: Room: [address] [place] [address] Type: ADM IN Attending Dr: Hiral Interiano MD Copies to: MD Ni James MD Mazhar Rahman, MD~ History of Present Illness Consult Details Consult Date: 08/11/2022 Requesting Provider: Hiral Interiano MD HPI: Mr. Smyth is an 82-year-old man transferred from the [facility]. The patient presented with some diffuse abdominal complaints, decreased urine output, and was found to be in profound renal failure with a creatinine of17 and a BUN over 150. He was hyperkalemic and acidotic. He was transferred with plans for the [facility] He essentially has a nonfunctioning atrophic left kidney and a large obstructing stone at the right ureteropelvic junction. Apparently the patient had breakfast in the emergency room prior to transfer to [facility]. He finished breakfast at about 11 [...] P documented by Dr. Interiano earlier today [facility] Vaccinated for COVID-19?: Yes Medical History (Updated [...] % (Auto) N/A, Lymph % (Auto) N/A, [place] % (Auto) N/A, Eos % (Auto) N/A, Baso % (Auto) N/A, Nucleat RBC Rel Count N/A, Neut # (Auto) N/A, Lymph # (Auto) N/A, [place] # (Auto) N/A, Eos # (Auto) N/A, [...] Plan: With prior negative biopsy back [place] [address] Carlisle Code(s): R97.20 - Elevated [...] actually worse than that noted at the [facility] at a current level of 7.4. [...] <Electronically signed by MD Ni Olivares> 08/11/[address] [facility] Work Phone: 1(242) 580-229902-15-2023 History and physical note Author Hiral Interiano [facility] August 11, 2022 2:02pm Note Date/Time August 11, 2022 2:02pm [facility] [address] [place] [address] Hospitalist H&P Signed Patient: Victorino Smyth MR#: [id number] : 1940 Acct:[id number] Age/Sex: 82 / M Adm Date: 3 Loc: Room: [address] [place] [address] Type: ADM IN Attending Dr: Hiral Interiano [...] of nephrolithiasis. Patient has been transferred from [facility] ER for acute kidney injury and [...] repeated labs available in the record from [place] ER. Chest x-ray read as mild bilateral [...] a similar feeling when he had an VT in 2017 and prior to that in [...] negative unless noted below or in HPI [facility] Medical History (Updated 08/11/22 @ 13:59 [...] type 2. He has been transferred from [facility] for obstructive uropathy with worsening renal failure and hyperkalemia. I was informed the patient was given cocktail for hyperkalemia with no repeated labs available in the record. Patient arrival to floor complaining of midsternal discomfort and mentioned having similar feeling when he had an VT. Does appear tachypneic likely from metabolic acidosis. [...] <Electronically signed by Hiral Interiano MD> 08/11/22 1406 [facility] Work Phone: 1(175) 476-489202-15-2023 [facility]* Encounter Date Diagnosis Assessment Notes Treatment Notes Treatment Clinical Notes May, Diabetes mellitus wi th chronic kidney disease (ICD-10 - E11.22) He has gzi-agngyrl-ffan ndent type 2 diabetes and currently takes [...] have advised him to adequately hydrate himself. [place] Other 08-11-2022 NotePROCEDURE: XR KNEE LT 4V or > COMPARISON: None. HISTORY: Pain of left knee joint FINDINGS: BONES:No acute fracture or dislocation. Minimal degenerative changes. SOFT TISSUES:Negative. No visible soft tissue swelling. EFFUSION:None visible. OTHER: Vascular calcification IMPRESSION: No acute abnormality Electronically authenticated by: TYLER MONSIVAIS Date: 2022-02-04 07:23[facility]05-31-2022 Evaluation note* Encounter Date Diagnosis Assessment Notes Treatment Notes Treatment Clinical Notes October, Diabetes mellitus wi th chronic kidney disease (ICD-10 - E11.22) He has nos-yszmugb-gddgj dent type 2 diabetes and currently takes [...] have advised him to adequately hydrate himself. [place] Other 05-02-2022 Hospital Discharge instructions Follow Up Care 10/26/2021 10:06:54 With:KADE OLIVEROS, Milton R, URL Address: [address] [place] [address]- When: Unknown [facility] 05-02-2022 Hospital Discharge instructions Patient Education 10/26/2021 [...] 06/13/2006 Document Revised: 03/02/2019 Document Reviewed: 05/13/2017 [employer] Patient Education 2020 [employer]. 10/26/2021 09:44:44 Urinary Frequency, Adult Urinary Frequency, [...] to keep your urine pale yellow. ?Take mxhf-mxx-zhzkmfd or prescription medicines. ?Eat foods that are high in fiber, such as beans, whole grains, and fresh fruits and vegetables. ?Limit foods that are high in fat and processed sugars, such as fried or sweet foods. General instructions Take hzzb-oeb-ibtpgpc and prescription medicines only as told by [...] the muscles that help control urination. Take zxgm-azp-ghdheel and prescription medicines only as told by your health care provider. Contact a health care provider if your symptoms do not improve or get worse. This information is not intended to replace advice given to you by your health care provider. Make sure you discuss any questions you have with your health care provider. Document Released: 04/09/2010 Document Revised: 12/21/2018 Document Reviewed: 12/21/2018 [employer] Patient Education 2020 [employer]. 10/26/2021 09:44:41 Kidney Stones, Xpqf-sv-Pzjb Kidney Stones Kidney stones are rock-like masses [...] Follow these instructions at home: Medicines Take lvpn-vvt-wvknrot and prescription medicines only as told by [...] 11/29/2008 Document Revised: 10/30/2019 Document Reviewed: 10/30/2019 [employer] Patient Education 2019 [employer]. Follow Up Care 02/23/2021 14:09:11 With:KADE OLIVEROS, Milton Brewer, URL Address: [facility] [address], [place] [address]- When:10/26/2022 [facility] 11-30-2021 Evaluation note* Encounter Date Diagnosis Assessment Notes Treatment Notes Treatment Clinical Notes Apr, Diabetes mellitus wi th chronic kidney disease (ICD-10 - E11.22) He has ieg-ujtkowp-rsrrn dent type 2 diabetes and currently takes [...] D and PTH are within the goal. 30 Apr, 2021 Nephrolithiasis (ICD -10 - N20.0) I have advised him to adequately hydrate himself. [place] Other Evaluation + Plan note Future Appointments Appointment Date:10/29/2022 08:45:00 AM Scheduled Provider:Milton BRAUN MD Location:[facility] Appointment Type:URO Office Visit [facility] evaluation + Plan note Future Appointments Appointment Date:09/14/2022 07:30:00 AM Scheduled Provider: Location:[facility] Appointment Type:Surgical PAT FT Appointment Date:10/07/2022 12:00:00 PM Scheduled Provider: Location:[facility] Appointment Type:Surgery FT Appointment Date:10/29/2022 08:45:00 AM Scheduled Provider:Milton BRAUN MD Location:[facility] Appointment Type:URO Office Visit [facility] evaluation + Plan note Future Appointments Appointment Date:11/18/2022 10:30:00 AM Scheduled Provider: Location:[facility] Appointment Type:Surgical PAT FT Appointment Date:12/02/2022 11:45:00 AM Scheduled Provider: Location:[facility] Appointment Type:Surgery FT [facility] evaluation + Plan note Future Appointments Appointment Date:06/12/2024 11:00:00 AM Scheduled Provider:Ni OLIVARES MD Location:[facility] Appointment Type:URO Office Visit Future Scheduled Tests Laboratory* Total Protein 24 Hour Urine 02/14/23 [facility] evaluation note* Diagnosis Onset Date Resolution Status Acute kidney injury superimp osed on chronic kidney disease acute Acute kidney insufficiency a cute CAD (coronary artery disease) acute CKD (chronic kidney disease) stage 3, GFR 30-59 ml/min acute Elevated PSA acute Hydronephrosis with ureteral calculus acute Hyperkalemia acute [id number] acute Left renal atrophy acute Metabolic acidosis acute Obstructive nephropathy acut e Preoperative cardiovascular examination acute Right ureteral stone acute 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 Diabetes chronic [facility] Work Phone: Evaluation noteNo assessment information available [facility] Work Phone: Evaluation note* Diagnosis Onset Date Resolution Status Secondary hyperparathyroidism acute CKD (chronic kidney disease) stage 3, GFR 30-59 ml/min chronic [id number] chronic Left renal atrophy chronic Metabolic acidosis chronic 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 [facility] Work Phone: Hissnis general Narrative - Reported* Type Description Date Medical History DIABETES MELLITUS Medical History CORONARY ARTERY DISEASE Medical History MORBID OSESITY Surgical History HERNEA LOWER RIGHT ABDOMINAL Surgical History HEART ATTACK WITH STENT PLACEME NT IN THE LAD Surgical History KIDNEY STENTS X 2 Surgical History PROSTRATE BIO PAD Surgical History KIDNEY STENTS X2 Surgical History KIDNEY STONE REMOVAL Hospitalization History SEE ABOVE [place] Other Hiseddl general Narrative - Reported* Type Description Date [...] KIDNEY STONE REMOVAL Hospitalization History SEE ABOVE [place] Other Hisdzuh general Narrative - Reported* Type Description Date [...] KIDNEY STONE REMOVAL Hospitalization History SEE ABOVE [place] Other history general Narrative - Reported* Type Description Date [...] History KELSEA, HYPERKALEMIA, METAB OLIC ACIDOSIS 08/11/2022 [facility] Other Hospital course Narrative No data available for this section [facility] Hospital Discharge instructions Additional Instructions 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 Avoid NSAIDs for pain control. Call [facility] Scheduling on Tuesday at [phone] to arrange a follow up CT scan regarding lung nodule in 4 weeks. Maintain occlussive dressing to HD catheter removal site for 48 hours - return to the Emergency Room for oozing or drainage from catheter exit site, noticeable swelling or itching around neck, shortness of breath, [facility]ish[facility] Work Phone: Progress note No data available for this section [facility] Chief Complaint and Reason for Visit Chief Complaint ACUTE RENAL FAILURE Reason for Visit Acute kidney injury superimposed on chronic kidney disease Acute kidney insufficiency CAD (coronary artery disease) CKD (chronic kidney disease) stage 3, GFR 30-59 ml/min Elevated PSA Hydronephrosis with ureteral calculus Hyperkalemia [id number] Left renal atrophy Metabolic acidosis Obstructive nephropathy Preoperative cardiovascular examination Right ureteral stone Type 2 diabetes mellitus with diabetic chronic kidney disease Diabetes Chief Complaint n20.0 Chief Complaint n20.0 N40.1 Chief Complaint n20.0 N40.1 N20.0 Chief Complaint Unknown Chief Complaint Unknown RENAL 6 month f/u Reason for Visit Secondary hyperparat hyroidism CKD (chronic kidney disease) stage 3, GFR 30-59 ml/min [id number] Left renal atrophy Metabolic acidosis Type 2 diabetes mellitus with diabetic chronic kidney disease Advance Directives No Advanced Directives Records Found Advance Directive Response Recorded Date/ Time Advance Directives No May 4:27am Advance Directive Response Recorded Date/ Time Advance Directives No May 5:27am Summary Purpose Family History Relationship Condition Age at Onset Recorded Date/T jeyson Not Specified No pertinent family history Unknown brother Hypertension Unknown father Family history of mental disorder Unknown Heart disease Unknown Unknown Not Specified Unknown No Family History Records Found Additional Source [...] Kiser MD Other Provider Active Jen Tamayo , [facility] Other Provider Active Aaliyah [place] MD Other Provider Active Alicia Perea MD Other Provider Active Milton rBaun MD Other Provider Active Ni [employer] MD Other Provider Active Yogesh Omalley MD Other Provider Active Kiran Eldridge Jr, MD Other Provider Active Fátima Ivey MD Other Provider Active Jennifer Villarreal MD Other Provider Active Bipin Barclay MD Other Provider Active Team Status: Active Member Role Status Dates Tray Alfaro MD Primary Care Provider Active Team Status: Inactive Member Role Status Dates Tray Alfaro MD Primary Care Provider Active Ni Olivares MD Attending Provider Active Team Status: Inactive Member Role Status Dates Tray Alfaro MD Primary Care Provider Active Start: October 18, 2023 End: October 18, 2023 NON STAFF Attending Provider Active Start: 2023 End: October 18, 2023 Team Status: Active Member Role Status Dates Tray Alfaro MD Primary Care Provider Active Start: December 14, 2023 Alicia Perea MD Attending Provider Active Start : December 14, 2023 Team Status: Inactive Member Role Status Dates Tray Alfaro MD Primary Care Provider Active Start: December 20, 2023 End: December 20, 2023 Alicia Perea MD Attending Provider Active Start : December 20, 2023 End: December 20, 2023 (unrecognized sect ion and content) No Status Records FoundNo Status Records FoundNo Status Records FoundNo Status Records FoundNo Status Records FoundNo Status Records Found INFORMATION SOURCE (unrecogn ized section and content) DATE CREATED AUTHOR 10/03/2022 [facility] DATE CREATED AUTHOR AUTHOR'S ORGANIZ ATION 12/07/2022 [facility] DATE CREATED AUTHOR AUTHOR'S ORGANIZ ATION 07/05/2023 [facility] DATE CREATED AUTHOR AUTHOR'S ORGANIZ ATION 10/27/2023 [facility] DATE CREATED AUTHOR AUTHOR'S ORGANIZ ATION 12/21/2023 [facility] DATE CREATED AUTHOR AUTHOR'S ORGANIZ ATION 05/23/2024 [facility] Goals (unrecognized section and content) Goals [...] BE BASED ON THE PRIMARY CLINICAL RECORDS. [facility] [employer] provides no warranty or guarantee of the accuracy or completeness of information in this document.
[2024-05-30 07:45] LABS: Hematocrit 42.5 % (42.0-54.0); Hemoglobin 14.3 g/dL (14.0-18.0); Mean Corpuscular HGB Conc 33.6 g/dL (29.9-35.2); Mean Corpuscular Hemoglobin 34.5 pg (25.9-34.0); Mean Corpuscular Volume 102.4 fL (80.0-94.0); Mean Platelet Volume 11.2 fL (9.5-13.5); Platelet Count 172 10^3/uL (150-450); Red Blood Count 4.15 10^6/uL (4.70-6.10); Red Cell Distribution Width 13.4 % (11.0-15.0); White Blood Count 6.8 10^3/uL (4.0-11.0)
[2024-05-30 08:03] LABS: Bilirubin Urine NEGATIVE (NEGATIVE); Blood Urine NEGATIVE (NEGATIVE); Clarity Urine CLEAR (CLEAR); Color Urine LT. YELLOW (YELLOW); Glucose Urine UA NEGATIVE (NEGATIVE); Ketones Urine NEGATIVE (NEGATIVE); Leukocyte Esterase Urine NEGATIVE (NEGATIVE); Nitrite Urine NEGATIVE (NEGATIVE); Protein Urine NEGATIVE (NEG/TRACE); Specific Gravity Urine 1.015 (1.005-1.025); Urobilinogen Urine 0.2 EU/dL (0.2-1.0)
[2024-05-30 08:05] LABS: Albumin Level 3.4 g/dL (3.4-5.0); Anion Gap 17.1; BUN Creatinine Ratio 12.1; Calcium 8.3 mg/dL (8.5-10.1); Carbon Dioxide 23.6 mmol/L (21.0-32.0); Chloride 108 mmol/L (98-107); Estimated GFR (African America 44 (>=60 mL/min/1.73m^2); Estimated GFR (Non-African Ame 36 (>=60 mL/min/1.73m^2); Glucose 145 mg/dL (74-106); Magnesium 1.9 mg/dL (1.8-2.4); Phosphorus 3.1 mg/dL (2.6-4.7); Potassium 4.7 mmol/L (3.5-5.1); Sodium 144 mmol/L (136-145); Uric Acid 7.5 mg/dL (3.5-7.2)
[2024-05-30 08:14] LABS: Bacteria Urine NONE SEEN #/HPF (NONE SEEN); Mucus Urine NONE SEEN (NONE SEEN); RBC Urine NONE SEEN #/HPF (0-2); WBC Urine NONE SEEN #/HPF (NONE SEEN)
[2024-05-30 08:15] LABS: Squamous Epithelial Cell Urine RARE #/LPF (NONE/RARE)
[2024-05-30 08:26] LABS: Creatinine Urine Random 84.23 mg/dL (20.00-300.00); Total Protein Urine Random 16.5 mg/dL (<=11.9)
[2024-05-31 11:10] LABS: PTH, Intact 61 pg/mL (15-65)
== END 2024-05-30 06:44 | disposition home or self-care (01) ==
LOC: LAB 06:45
PROVIDERS: PCP Family Medicine; Visit Provider Internal Medicine
DX: E11.22 Type 2 diabetes mellitus with diabetic chronic kidney disease (principal); N18.30 Chronic kidney disease, stage 3 unspecified; E87.20 Acidosis, unspecified; N25.81 Secondary hyperparathyroidism of renal origin; I12.9 Hypertensive chronic kidney disease with stage 1 through stage 4 chronic kidney disease, or unspecified chronic kidney disease
CPT/HCPCS: 36415; 80069; 81001; 82306; 82570; 83735; 83970; 84156; 84550; 85027

== ENCOUNTER 2024-06-07 11:56 | Outpatient (OUT) | payer MEDICARE, SELFPAY ==
--- NOTE | 2024-06-07 12:07 | XR_ITS ---
[place] [id number] Patient Name: GLADYS SMYTH MRN: [id number] date: 1940 Sex: M Assigned Patient Location: [facility] Current Patient Location: Accession/Order Number: [id number] Exam Date: 06/07/2024 12:17 Report Date: 06/11/2024 07:14 At the request of: TRAY ALFARO Procedure: XR ankle LT min 3V PROCEDURE: XR ankle LT min 3V COMPARISON: None. HISTORY: Left ankle pain, M25.752 FINDINGS: BONES:No acute fracture or dislocation. Moderate degenerative changes with marginal osteophyte formation. Moderate enthesopathic spurring of the calcaneus SOFT TISSUES:Negative. No visible soft tissue swelling. EFFUSION:None visible. OTHER: Intensive vascular calcifications XR/XR ankle LT min 3V IMPRESSION: Moderate degenerative changes Electronically authenticated by: TYLER MONSIVAIS Date: 06/11/2024 07:14
--- OUTSIDE RECORDS SUMMARY | 2024-06-07 12:14 | XMS_ITS | CCD ---
Author Organization [facility] Inform ion Partnership [facility] Care Team Providers Care Systems Navigator Name Role Phone Tray Alfaro Primary Care [...] Provider MD Skinny Kiser Other Provider [facility] Jen Desir Other Provider MD Aaliyah Mitchell Other Provider MD Alicia Perea Other Provider MD Milton Braun Other Provider MD Ni Olivares Other Provider MD Yogesh Omalley Other Provider MD Kiran Eldridge Jr Other Provider [phone] MD Fátima Ivey Other Provider MD Jennifer Villarreal Other Provider [phone] MD Bipin Barclay Other Provider BRIT, [...] DR FELIZ Admcrescencio Unavailable HOY ., DR EFLIZ Consulting Unavailable BRIT, ALICIA Consulting Unavailable HOY [...] Unavailable MD Tray Alfaro Primary Care Provider [phone] MD Ni Olivares Attending Provider [phone] Ni OLIVARES P Referring Unavailable COOK, Ni [...] Unavailable MD Tray Alfaro Primary Care Provider [phone] NON STAFF Attending Provider Unavailable JENNIFER [...] Eruption of skin (disorder) [facility] (13 sources) Penicillin; Translations: [penicillin] Drug Allergy Eruption of skin (disorder) [facility] Other (6 sources) Ciprofloxacin Drug Allergy Unknown [facility] Other (9 sources) Penicillins; Translations: [Penicillins] Allergy to substance 06-14-20 [facility] (1 source) Ciprofloxacin Drug Allergy 03-10-20 [facility] Repository (3 sources) levothyroxine; Translations: [levothyroxine] Drug Allergy Swelling of oral cavity structure (finding) [facility] (3 sources) liothyronine; Translations: [liothyronine] Drug Allergy Swelling of oral cavity structure (finding) [facility] (1 source) No Known Medication Allergies; Translations: [No Known Medication Allergies] Propensity to adverse reactions (disorder) [facility] Repository (1 source) Ciprofloxacin Drug Allergy 06-14-20 [facility] Repository Medications Current Medications Medication Drug Class(es) Dates Sig (Normalized) Sig (Original) acetaminophen 325 mg / HYDROcodone bitartrate 5 mg oral tablet (1 source) Opioid Agonist Start: 10-07-2022 End: 10-09-2022 acetaminophen-hyd rocodone 325 mg-5 mg oral tablet 1 tab(s), Oral, q4hr Pain for 2 day(s), 7 tab(s), Refill(s) 0, [id number], 175, cm, 09/15/22 5:20:00 EDT, Height/Length Dosing, 114, kg, 09/15/22 5:20:00 EDT, Weight Dosing Start Date: 10/07/22 Stop Date: 10/09/22 Status: Ordered [id number] 200 actuat albuterol 0.09 mg/actuat metered dose [...] afterwards, # 2 cap(s), Refills(s) 0, Pharmacy: [facility]87, 177, cm, 11/18/22 13:54:00 EDT, Height/Length Dosing, [...] Oral, Daily Start Date: 04/10/19 Status: Ordered Axtg-Xvsqj-Fqb-D3-Hyal-Wiley B or (1 source) Start: 12-20-2023 take 1 tablet by mouth twice daily Utdi-Nmdgp-Fpf-D3-Hyal-Wiley Bor Active 1 TAB PO Twice daily [...] activity, # 30 tab(s), Refills(s) 2, [facility], 174, cm, 08/18/20 12:16:00 [...] 1 puff(s) by inhalation once daily Tiotropium [place] (Spiriva Respimat) 2.5 mcg/actuation mist Active 2 [...] Coronary arteriosclerosis; Translations: [Atherosclerotic heart disease of cachil 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] Onset: 3 [...] Onset: 08-25-2022 Episodic Other aftercare (1 source) ferry terminal agent (current) use of aspirin; Translations: [MCFP CURRENT USE OF ASPIRIN] Onset: 08-13-2022 Episodic Other aftercare (1 source) Other buttermaker helper (current) drug therapy; Translations: [OTH COMPTROLLER CURRENT DRUG THERAPY] Onset: 08-13-2022 Episodic Other [...] Range Facility Office Visiton 05-21-2024 Follow-up visit [id number] Ruben Smyth 1940 M Date Provider Department Center 05/21/2024 JENNIFER SMITH [facility] Family History Problem Relation Age of Onset No Known Problems Mother No Known Problems Father Family Status - Relation Status Age at Mother Father Level of Service:26751 [place] OFFICE/OUTPATIENT ESTABLISHED LOW MDM 20 MIN Normal [facility] Erythrocyte distribution wid th Auto (RBC) [Ratio]on 12-14-2023 Erythrocyte distribution width (RBC) [Ratio] 12.9 % 11.0-15.0 [facility] Estimated glomerular filtrat ion rate (GFR) non- Americanon 12-14-2023 GFR/1.73 sq M.predicted among non-blacks MDRD (S/P/Bld) [Vol rate/Area] 35 mL/min/{1.73_m2} >=60 [facility] Hematocrit Auto (Bld) [Volum e fraction]on 12-14-2023 Hematocrit (Bld) [Volume fraction] 41.9 % 42.0-54.0 [facility] Hemoglobin [Mass/volume] in Bloodon 12-14-2023 Hemoglobin (Bld) [Mass/Vol] 14.0 g/dL 14.0-18.0 [facility] Iron binding capacity [Mass/ volume] in Serum or Plasmaon 12-14-2023 Iron binding capacity [Mass/Vol] 279.0 ug/dL 250.0-450. 0 [facility] Iron saturation [Mass Fracti on] in Serum or Plasmaon 12-14-2023 Iron saturation [Mass fraction] 36.2 % [facility] Laboratory - Chemistry and C hemistry - challengeon 12-14-2023 Albumin [Mass/Vol] 3.3 g/dL 3.4-5.0 [facility] Calcium [Mass/Vol] 8.5 mg/dL 8.5-10.1 [facility] Chloride [Moles/Vol] 106 mmol/L 98-107 [facility] CO2 [Moles/Vol] 24.0 mmol/L 21.0-32.0 [facility] Creatinine [Mass/Vol] 1.84 mg/dL 0.70-1.30 [facility] Ferritin [Mass/Vol] 111.0 ng/mL 26.0-388.0 [facility] GFR/1.73 sq M.predicted MDRD (S/P/Bld) [Vol rate/Area] 43 mL/min/{1.73_m2} >=60 [facility] Glucose [Mass/Vol] 155 mg/dL 74-106 [facility] Iron [Mass/Vol] 101.0 ug/dL 65.0-175.0 [facility] Magnesium [Mass/Vol] 1.7 mg/dL 1.8-2.4 [facility] Potassium [Moles/Vol] 4.6 mmol/L 3.5-5.1 [facility] Sodium [Moles/Vol] 140 mmol/L 136-145 [facility] Urate [Mass/Vol] 6.4 mg/dL 3.5-7.2 [facility] Urea nitrogen [Mass/Vol] 21.0 mg/dL 7.0-18.0 [facility] Urea nitrogen/Creatinine [Mass ratio] 11.4 mg/mg [facility] Bilirubin Ql (U) Negative NEGATIVE [facility] Glucose (U) [Mass/Vol] Negative NEGATIVE [facility] Ketones Ql (U) Negative NEGATIVE [facility] pH (U) 5.5 [pH] 5.0-9.0 [facility] Specific gravity (U) [Rel density] 1.015 1.005-1.02 5 [facility] Urobilinogen Qn (U) 0.2 {Wil'U}/dL 0.2-1.0 [facility] Laboratory - Specimen inform ationon 12-14-2023 Appearance (U) CLEAR CLEAR [facility] Color (U) YELLOW YELLOW [facility] Laboratory - Urinalysison Leukocyte esterase Test strip Ql (U) Negative NEGATIVE [facility] Mucus Ql (Urine sed) NONE SEEN NONE SEEN [facility] Nitrite Ql (U) Negative NEGATIVE [facility] Protein (U) [Mass/Vol] 10.9 mg/dL <=11.9 [facility] Protein Ql (U) Negative NEG/TRACE [facility] Leukocytes [#/volume] correc ike for nucleated erythrocytes in Blood by Automated counon 12-14-2023 WBC corrected for nucl RBC Auto (Bld) [#/Vol] 6.2 10 3/uL 4.0-11.0 [facility] MCH Auto (RBC) [Entitic mass ]on 12-14-2023 MCH (RBC) [Entitic mass] 33.7 pg 25.9-34.0 [facility] MCHC Auto (RBC) [Mass/Vol]on 12-14-2023 MCHC (RBC) [Mass/Vol] 33.4 g/dL 29.9-35.2 [facility] MCV Auto (RBC) [Entitic vol] on 12-14-2023 MCV (RBC) [Entitic vol] 101.0 fL 80.0-94.0 [facility] No Panel Informationon 12-13 25-Hydroxy Vitamin D Total 66.1 ng/mL [facility] Comment on above: <20 ng/mL Vit D defi cient20-<30 ng/mL Vit D jbigkpeurenv21-811 ng/mL Vit D sufficient>100 ng/mL Potential Toxicity Parathyroid Hormone (Intact) 50 pg/mL 15-65 [facility] Comment on above: Performed at: - [address] [id number] Director: Lee Bob PhD, Phone: [phone] Phosphorus Level 3.5 mg/dL 2.6-4.7 [facility] Urine Bacteria NONE SEEN #/HPF NONE SEEN [facility] Urine Occult Blood Negative NEGATIVE [facility] Urine Other Casts NONE SEEN #/LPF NONE SEEN [facility] Urine Other Crystals None Seen #/HPF None Seen [facility] Urine Random Creatinine 71.05 mg/dL 20.00-300. 00 [facility] Urine RBC NONE SEEN #/HPF 0-2 [facility] Urine Squamous Epithelial Cells RARE #/LPF NONE/RARE [facility] Urine WBC NONE SEEN #/HPF NONE SEEN [facility] Platelet mean volume Auto (B ld) [Entitic vol]on 12-14-2023 Platelet mean volume (Bld) [Entitic vol] 11.2 fL 9.5-13.5 [facility] Platelets Auto (Bld) [#/Vol] on 12-14-2023 Platelets (Bld) [#/Vol] 168 10 3/uL 150-450 [facility] RBC Auto (Bld) [#/Vol]on RBC (Bld) [#/Vol] 4.15 10 6/uL 4.70-6.10 [facility] Serum or plasma anion gap de terminationon 12-14-2023 Anion gap [Moles/Vol] 14.6 mmol/L [facility] Urine protein/creatinine rat ioon 12-14-2023 Protein/Creatinine (U) [Ratio] 0.15 [facility] Office Visiton 11-01-2023 Follow-up visit [id number] Ruben Smyth 1940 M Date Provider Department Center 11/01/2023 ISRA HICKS [facility] Family History Problem Relation Age of Onset No Known Problems Mother No Known Problems Father Family Status - Relation Status Age at Mother Father Level of Service:25896 [place] OFFICE/OUTPATIENT ESTABLISHED MOD MDM 30 MIN Reason for Visit and Comments: Coronary Artery Disease [187] Hypertension [211997] Normal [facility] Daniel 10-18-2023 L Specimen: [id number] Received: 10/19/23 Status: HIMANSHU Sorensentimothy Num: [id number] Spec Type: Surgical Subm Dr: EMELY STAFF Tissues: A Colon Biopsy (DESC POLYP AT 50 CM) Procedures: HE/2, Gross/Micro L4 Age/ Patient Sex Location Account Attending Physician HajaVictorino M 83/M [facility] [id number] NON STAFF SPEC NUM: [id number] RECD: 10/19/23 STATUS: HIMANSHU WILLIAMSON NUM: [id number] HYUN: 10/18/[address]: EMELY STAFF ENTERED: [...] colon polyp at 50 cm CPT Codes 85232 Specimen: [id number] Received: 10/19/23 Status: HIMANSHU Williamson Num: [id number] Spec Type: Surgical Subm Dr: EMELY STAFF Tissues: A Colon Biopsy (DESC POLYP AT 50 CM) Procedures: HE/2, Gross/Micro L4 Patient: Victorino Smyth [id number] (Continued) Signed (signature on file) Ana Villegas MD 10/20/23 1637 Normal [facility] 36on 09-06-2023 36 Blood pressure is lo oking better. Continue to hold amlodipine. Thanks! Normal [facility] 37on 08-23-2023 37 *Stop Amlodipine. *We will call you in 1 week to check in on your blood pressure readings. [facility] Office Visiton 08-23-2023 Follow-up visit [id number] Ruben Smyth 1940 M Date Provider Department Center 08/23/2023 Komal-ISRA GAYLE [facility] Family History Problem Relation Age of Onset No Known Problems Mother No Known Problems Father Family Status - Relation Status Age at Mother Father Level of Service:12810 [place] OFFICE/OUTPATIENT ESTABLISHED MOD MDM 30 MIN Normal [facility] Lab Reportson 07-05-2023 Lab Reports [id number]#1.00TIFF Normal [facility] Lab Reports [id number]#1.00TIFF Normal [facility] Calcium [Mass/volume] in Ser um or PlasmaOrdered By: Ni Olivares on 07-02-2023 Calcium [Mass/Vol] 8.8 mg/dL Normal 8.6-10.3 [facility] Comment on above: Performed By: #### U THUY, CA, CREAT, BUN, PTH, LYTES #### [facility] [address] Carbon dioxide, total [Moles /volume] in Serum or PlasmaOrdered By: Ni Olivares on 07-02-2023 CO2 [Moles/Vol] 24.0 mmol/L Normal 21.0-31.0 [facility] Comment on above: Performed By: #### U THUY, CA, CREAT, BUN, PTH, LYTES #### [facility] [address] [place] [address] [place] Chloride [Moles/volume] in S paty or PlasmaOrdered By: Ni Olivares on 07-02-2023 Chloride [Moles/Vol] 107 mmol/L Normal 98-107 [facility] Comment on above: Performed By: #### U THUY, CA, CREAT, BUN, PTH, LYTES #### [facility] [address] [place] [address] [place] Creatinineon 07-02-2023 GFR/1.73 sq M.predicted MDRD (S/P/Bld) [Vol rate/Area] 32.151 mL/min/{1.73_m2} Normal [facility] Comment on above: Performed By: #### U THUY, CA, CREAT, BUN, PTH, LYTES #### [facility] [address] [place] [address] [place] Creatinine [Mass/volume] in Serum or PlasmaOrdered By: Ni Olivares on 07-02-2023 Creatinine [Mass/Vol] 2.05 mg/dL High 0.70-1.30 [facility] Comment on above: Performed By: #### U THUY, CA, CREAT, BUN, PTH, LYTES #### [address] No Panel InformationOrdered By: Ni Olivares on 07-02-2023 Estimated GFR (CKD-EPI) 32.151 mL/Min [facility] Creatinine Clearance (Chem N/A [facility] Parathyrin.intact [Mass/volu me] in Serum or PlasmaOrdered By: Ni Olivares on 07-02-2023 Parathyrin.intact [Mass/Vol] 55.4 pg/mL [facility] Parathyroid Hormone Intacton 07-02-2023 Parathyroid Hormone Intact 55.4 pg/mL Normal [facility] Comment on above: Result Comment: PERF ORMED BY: [place] [address] PATHOLOGIST [employer]AVE BOARD ASSEMBLER DIANDRA LACY M.D. Performed By: #### U THUY, CA, CREAT, BUN, PTH, LYTES #### [address] Potassium [Moles/volume] in Serum or PlasmaOrdered By: Ni Olivares on 07-02-2023 Potassium [Moles/Vol] 5.0 mmol/L Normal 3.5-5.1 [facility] Comment on above: Performed By: #### U THUY, CA, CREAT, BUN, PTH, LYTES #### [address] Serum or plasma anion gap de terminationOrdered By: Ni Olivares on 07-02-2023 Anion gap [Moles/Vol] 12.0 mmol/L Normal 6.0-15.0 [facility] Comment on above: Performed By: #### U THUY, CA, CREAT, BUN, PTH, LYTES #### [address] Sodium [Moles/volume] in Ser um or PlasmaOrdered By: Ni Olivares on 07-02-2023 Sodium [Moles/Vol] 138 mmol/L Normal 136-145 [facility] Comment on above: Performed By: #### U THUY, CA, CREAT, BUN, PTH, LYTES #### [address] Urate [Mass/volume] in Serum or PlasmaOrdered By: Ni Marshall on 07-02-2023 Urate [Mass/Vol] 8.2 mg/dL High 4.4-7.6 [facility] Comment on above: Result Comment: PERF ORMED BY: [place] [address] PATHOLOGIST [employer]AVE BOARD ASSEMBLER DIANDRA LACY M.D. Performed By: #### U THUY, CA, CREAT, BUN, PTH, LYTES #### [address] Urea nitrogen [Mass/volume] in Serum or PlasmaOrdered By: Ni Olivares on 07-02-2023 Urea nitrogen [Mass/Vol] 31 mg/dL High 7-25 [facility] Comment on above: Performed By: #### U THUY, CA, CREAT, BUN, PTH, LYTES #### [address] Lab Reportson 07-01-2023 Lab Reports [id number]#1.00TIFF Normal [facility] PSA Total (Not a Screen)on 0 06-28-2023 PSA Total (Not a Screen) 4.730 ng/mL High 0.000-4.00 0 [facility] Comment on above: Result Comment: Seri al tumor marker results determined by assays using different manufacturers or methods may not be comparable. [facility] Laboratory aluminum hydroxide process operator and method: [employer] DXI, CHEMILUMINESCENT IMMUNOASSAY. PERFORMED BY: [place] [address] PATHOLOGIST OCTAVE BOARD ASSEMBLER DIANDRA LACY M.D. Performed By: #### P SATOTAL #### [place] [address] [facility] Prostate specific Ag [Mass/v olume] in Serum or PlasmaOrdered By: Ni Olivares on 06-28-2023 Prostate specific Ag [Mass/Vol] 4.730 ng/mL 0.000-4.00 0 [facility] Comment on above: Serial tumor marker results determined by assays using different manufacturers or methods may not be comparable.[facility] Laboratory aluminum hydroxide process operator and method:Suros Surgical SystemsEL DXI, CHEMILUMINESCENT IMMUNOASSAY. RAD - Ultrasound Reporton RAD - Ultrasound Report [id number]#1.00TIFF Normal [facility] Lab Reportson 06-16-2023 Lab Reports [id number]#1.00TIFF Normal [facility] Lab Reports [id number]#1.00TIFF Normal [facility] Lab Reports [id number]#1.00TIFF Normal [facility] Screenson 06-16-2023 Screens [id number]#1.00TIFF Normal [facility] US renal BIon 06-16-2023 US renal BI [facility] Main [place] [address] [place] [id number] Ultrasound Report Signed Patient: Victorino Smyth MR#: [id number] : 1940 Acct:[id number] Age/Sex: 82 / M ADM Date: 06/16/23 Loc: Room: Type: [facility] Attending Dr: Ni Olivares MD Ordering Provider: Ni Olviares MD Date of Service: 06/16/23 US/US renal [...] Rehan Fuentes M.D.06/16/2023 4:02 PM Dictation Location: [place] [address] Tech: Sue Chiu Transcribed By: [facility] 06/16/23 1602 Dictated By: Rehan Fuentes DO 06/16/23 1559 Signed By: 06/16/23 1602 Normal [facility] Physician [facility] Ambulatory Visit Summaryon 1 08-15-2022 Ambulatory Visit Summary VICTORINO SMYTH :1940 Visit Date:06/14/2023 Ambulatory Visit Instructions Your Diagnosis Kidney stone BPH with urinary obstruction Prostate cancer Tests Performed Urnls Dip Stick Auto w/o Microscopy POC 92735 US Renal -- Results Pending -- Please [...] with MARSHALL OLIVEROS, BHUPINDER Merritt When: Where: [facility] [employer] [address] [place] [address]- Medications What How Much When Instructions Unchanged [...] concerns Unchanged (more content not included)... Normal [facility] Formson 06-14-2023 Forms [id number]#1.00TIFF [facility] Patient Educationon 06-14-20 23 Patient Education [...] ? 8 oz (237 mL) of milk, dosonff-hudurccebhad-quaen milk, and calcium-fortifiedfruit juice. Calcium-fortified means that [...] Spinach (cooked), rhubarb, beets, sweet potatoes, and Egyptian chard. ? Peanuts. ? Potato chips, citizen of [place] fries, and baked potatoes with skin on. ? Nuts and nut products. ? Chocolate. ? If you regularly take a diuretic medicine, make sure to eat at least 1 or 2 servings of fruits or vegetables that are high in potassium each day. These include: ? Avocado. ? Banana. ? [place], prune, carrot, or tomato juice. ? Baked [...] fish oil, or vitamin B6. ? Take vldz-lov-zfqvprd and prescription medicines only as told by [...] with voice recognition artificial intelligence software, specifically Wellkeeper, Sensor[employer] and or [employer]house. Substitutions may have occurred due to the [...] prostate) TRUS/bx 07/05/[address] Carlisle. Path [place] 6 (3+3) x2 involving 15%. Pt states [...] Information MARSHALL OLIVEROS, Ni Garcia, URL [address] [facility] [address] [place] [address]- Additional Instructions: 1 year Patient Education Dietary [...] with uretera (more content not included)... Normal [facility] Comment on above: Result Comment: Elec tronically Signed By: Ni OLIVARES MD\.br\Date and Time Signed: 06/14/23 09:55 EST\.br\Electronically Co-Signed By: Dahiana Joseph\.br\Date and Time Co-Signed: 06/14/23 09:48 EST\.br\Electronically Co-Signed By: Dahiana Joseph\.br\Date and Time Co-Signed: 06/14/23 09:50 EST Consent for Procedure/Surger yon 12-21-2022 Consent for Procedure/Surgery [id number]#1.00CD:127 Normal [facility] IntraOperative Documentson 0 12-21-2022 IntraOperative Documents [id number]#1.00CD:127 [facility] Consent for Treatmenton 11-26 Consent for Treatment [id number]#1.00CD:127 Normal [facility] Inpatient Patient Summaryon 12-20-2022 Inpatient Patient Summary [address] [address] Clinical Summary Person Information Name: VICTORINO SMYTH Age: 82 Years : 1940 Sex: Male PCP: Tray Alfaro MD Marital Status: Race: White Ethnicity: Non- or Language: Tanzanian Visit Id: Visit Reason: RIGHT KIDNEY STONE Speciality: Acuity: Enc Type: Outpatient Med Service: Surgery Arrival: 12/20/2022 15:00:15 Discharge: Dispo Type: Address: [address] [place] [id number] Provider Notes: Diagnosis: Problems Active Flank pain [...] Follow up: With: Address: When: Ni OLIVARES [address] [place] [address], [address], [place] [address] [facility] (1) Within 6 months Comments: Call [...] with Stent Removal Discharge Instructions (Custom) Isamar [facility] Main OR Intraoperative Recor don 12-20-2022 Main OR Intraoperative Record IntraOp Document Type FTURO Summary Primary Physician: Ni OLIVARES MD Finalized Date/Time: 12/20/22 16:29:12 Pt. Name: VICTORINO SMYTH Bryan RuedaB./Sex: 1940 Male Med Rec #: [id number] Physician: Ni OLIVARES MD Financial #: [id number] Pt. Type: O Room/Bed: / Admit/Disch: 12/20/22 [...] Shabnam Garcia Role Performed Surgeon - Primary Lead Java J2Ee Developer - Primary Scrub - Primary Time In [...] Bryan RuedaB./Sex: 1940 Male Med Rec #: [id number] Physician: Ni OLIVARES MD Financial #: [id number] Pt. Type: O Room/Bed: / Admit/Disch: 12/20/22 [...] Discharge Instructionon 12-20-2022 Outpatient Surgery Discharge Instruction [place] [id number] Patient Discharge Instructions PERSON INFORMATION Name: VICTORINO [...] up: With: Address: When: Ni OLIVARES [address], [address], [place] [id number] [facility] (1) Within 6 months Comments: Call [...] you. Thank you for choosing [facility] Normal [facility] Postoperative Documentson Postoperative Documents [id number]#1.00CD:127 Normal [facility] Calculus Analysison 12-09-19 23 Color (Stone) Olsen Invalid Interpretation Code [facility] Comment on above: Performed By: #### 2 [id number] #### [facility] [address] [place] [address] Composition Comment Invalid Interpretation Code [facility] Comment on above: Result Comment: Perc entage (Represents the % composition) Performed By: #### 2 [id number] #### [facility] [address] [place] [address] Disclaimer: Comment Invalid Interpretation Code [facility] Comment on above: Result Comment: This test was developed and its performance characteristics determined by [employer]. It has not been cleared or approved by the Food and Drug Administration. Performed at: [facility] [place] [address], [place] [id number] PhD Jarvis Bauman Performed By: #### 2 [id number] #### [facility] [address] [place] [address] Laboratory comment Dangelo (Report) Comment Invalid Interpretation Code [facility] Comment on above: Result Comment: Padmini gutierrez questions regarding Calculi Analysis contact [facility] at: [phone]. Performed By: #### 2 [id number] #### [facility] [address] [place] [address] Please Note: Comment Invalid Interpretation Code [facility] Comment on above: Result Comment: Calc salazar report will follow via computer, mail or surveyor geodetic delivery. Performed By: #### 2 [id number] #### [facility] [address] [place] [address] Size (Stone) [Entitic vol] 3x5 Invalid Interpretation Code [facility] Comment on above: Result Comment: Mult iple pieces received. Dimensions of the largest piece reported. Performed By: #### 2 [id number] #### [facility] [address] [place] [address] Specimen source subject Nom Comment Invalid Interpretation Code [facility] Comment on above: Result Comment: Righ t Ureter Performed By: #### 2 [id number] #### [facility] [address] [place] [address] Stone Photo Comment Invalid Interpretation Code [facility] Comment on above: Result Comment: Phot ograph will follow under a separate cover Performed By: #### 2 [id number] #### [facility] [address] [place] [address] Urate (Stone) [Mass fraction] 100 % Invalid Interpretation Code [facility] Comment on above: Performed By: #### 2 [id number] #### [facility] [address] [place] [address] Weight (Stone) 131 mg Invalid Interpretation Code [facility] Comment on above: Performed By: #### 2 [id number] #### [facility] [address] [place] [address] Pre-Certification Formon Pre-Certification Form [id number]#1.00CD:127 [facility] IntraOperative Documentson 0 12-06-2022 IntraOperative Documents [id number]#1.00CD:127 [facility] Consent for Anesthesiaon Consent for Anesthesia [id number]#1.00CD:127 [facility] Discharge Instructionson Discharge Instructions [id number]#1.00CD:127 [facility] IntraOperative Documentson 0 12-03-2022 IntraOperative Documents [id number]#1.00CD:127 [facility] IntraOperative Documents [id number]#1.00CD:127 [facility] Main OR Intraoperative Recor don 12-03-[address]22 [address] Intraoperative Record [facility] Preoperative Documentson Preoperative Documents [id number]#1.00CD:127 [facility] Preoperative Documents [id number]#1.00CD:127 [facility] Preoperative Documents [id number]#1.00CD:127 [facility] Progress Note-Physicianon Progress Note-Physician Patient: VICTORINO [...] Problems Acute kidney failure / SNOMED CT 23035264 / Confirmed BPH with urinary obstruction / SNOMED CT 0536583293 / Confirmed Chronic obstructive pulmonary disease (COPD) / SNOMED CT 38649979 / Confirmed Coronary artery disease / SNOMED CT 96978137 / Confirmed Anticoagulated / SNOMED CT 427818697 / Confirmed Erectile dysfunction / SNOMED CT 9461362576 / Confirmed Flank pain / SNOMED CT 095866842 / Confirmed H/O: hypothyroidism / SNOMED CT 028855590 / Confirmed Hydronephrosis / SNOMED CT 34694513 / Confirmed Hydronephrosis with ureteral calculus / SNOMED CT 8981804401 / Confirmed Hyperlipidemia / SNOMED CT 44728754 / Confirmed Hyperplastic colon polyp / SNOMED CT 9310041139 / Confirmed Hypertension / SNOMED CT 5686480490 / Confirmed Kidney stone / SNOMED CT 469547441 / Confirmed Prostate cancer / SNOMED CT 2716853348 / Confirmed Myocardial infarct / SNOMED CT 57908265 / Confirmed BPH associated with nocturia / SNOMED CT 9967256160 / Confirmed Occult blood in stools / SNOMED CT 27134926 / Confirmed Postprandial diarrhea / SNOMED CT 01279784 / Confirmed Elevated PSA / SNOMED CT 6635128100 / Confirmed Urinary retention / SNOMED CT 588915476 / Confirmed Rheumatoid arthritis / SNOMED CT 246961524 / Confirmed DM (diabetes mellitus), type 2 / SNOMED CT 869659687 / Confirmed Ureteral stone / SNOMED CT 61661096 / Confirmed Histories Procedure history: ESWL of kidney (17533620) on 10/07/2022 at 82 Years. Transurethral resection of prostate (631967708) on 08/01/2019 at 79 Years. Biopsy of prostate (265137870) on 07/04/2019 at 78 Years. cystoscopy, bilateral, ureteroscopy, laser lithotripsy on 06/27/2019 at 78 Years. TRIGGER FINGER RELEASE. Neuroplasty and/or transposition; median nerve at carpal tunnel (99064). Percutaneous transluminal coronary angioplasty; single major coronary artery or branch (77004). Patient has a coronary artery stent (Peri2) [...] adequate air exchange. Cardiovascular: Regular rhythm. Plan [place] [employer] (ASA) physical status classification: Class III. Anesthetic Preoperative Plan: Anesthesia General. Normal [facility] Comment on above: Result Comment: Elec tronically Signed By: Reji Hidalgo DO, Ty Khanna\.br\Date and Time Signed: 12/03/22 08:21 EDT Capillary Glucose POCon Glucose [Mass/Vol] 82 mg/dL Normal 55-99 [facility] Comment on above: Result Comment: Jackelin quach RN/MD Performed By: #### 2 [id number] #### [facility] [address] [place] [address] Consent for Procedure/Surger yon 12-02-2022 Consent for Procedure/Surgery [id number]#1.00CD:127 Normal [facility] Consent for Treatmenton Consent for Treatment [id number]#1.00CD:127 Normal [facility] Discharge Instructionson Discharge [...] for followup appointment Where: [facility] [employer] [address] [address]- Business (1) Medications What How Much When Instructions Next Dose New doxycycline (doxycycline hyclate 100 mg Cap) 1 Capsules By Mouth 2 times a day Duration: 5 Days Pickup at [email or web address] #[id number] Unchanged albuterol (Ventolin Diskus) 2 Puffs Inhalation [...] needed for Itching Pharmacy Information [id number]: [address], [place] [id number] [phone] Allergies ciprofloxacin (Rash) levothyroxine (Mouth swelling) liothyronine (Mouth (more content not included)... Normal [facility] Comment on above: Result Comment: Elec tronically Signed By: Shae BRITO, Jazmin Eli\.br\Date and Time Signed: 12/02/22 12:25 EDT H&P Updateon 12-02-2022 H&P Update [id number]#1.00CD:127 Normal [facility] Inpatient Patient Summaryon 12-02-2022 Inpatient Patient Summary [address] [address] [facility] Clinical Discharge Instructions PERSON INFORMATION Name: VICTORINO SMYTH [facility]#:[id number] PHYSICIANS Admitting Physician: Ni OLIVARES MD Attending Physician: Ni OLIVARES MD PCP: Erum OLIVEROS, Tray Discharge Diagnosis: Comment: PATIENT EDUCATION INFORMATION Instructions: Xlzr-Fwss-mh Utereroscopy,Lithotripsy, Stone Extraction, Stent Placement (Custom) Medication Leaflets: Follow up: With: Address: When: Ni OLIVARES [address] [place] [address], [address], [address] [address] [facility] (1) Comments: Call for followup appointment MEDICATION LIST New Medications [id number], [address], [place] [id number], [phone] doxycycline (doxycycline hyclate 100 mg Cap) 1 [...] [facility] PACU I Recordon 06-0 Main OR PACU I Record PACU Phase I Docum ent Type FT Summary Primary Physician: Ni OLIVARES MD Finalized Date/Time: 12/02/22 12:58:10 Pt. Name: VICTORINO SMYTH Bryan Chatman./Sex: 1940 Male Med Rec #: [id number] Physician: Ni OLIVARES MD Financial #: [id number] Pt. Type: A Room/Bed: [place] [address] Admit/Disch: 12/02/22 09:31:57 - Institution: Case Times [...] Name: SMYTHVICTORINO./Sex: 1940 Male Med Rec #: [id number] Physician: Ni OLIVARES MD Financial #: [id number] Pt. Type: A Room/Bed: [facility] Admit/Disch: 12/02/22 09:31:57 - Institution: Case [...] VICTORINODANYELLE Dubon/Sex: 1940 Male Med Rec #: [id number] Physician: Ni OLIVARES MD Financial #: [id number] Pt. Type: Room/Bed: [facility] Admit/Disch: 12/02/22 09:31:57 - Institution: [facility] [...] [facility] Monitor Recordon 12-02-2022 Monitor Record [id number]#1.00CD:127 Normal [facility] Monitor Record [id number]#1.00CD:127 Normal [facility] Operative Reporton 3 [...] Discharge Instructionon 12-02-2022 Outpatient Surgery Discharge Instruction [address] [address] Patient Discharge Instructions PERSON INFORMATION [...] Follow up: With: Address: When: Ni OLIVARES [address] [place] [address], [address], [place] [address] [facility] (1) Comments: Call for followup appointment Pharmacy Information: You may receive a survey from [employer] [employer] asking you to rate your care experience. Your feedback is important and will help us understand what we do well and how we can improve the quality of care we provide to you, your loved ones and our community. It?s an honor to serve you. Thank you for choosing [facility] HERE ARE THE MEDICATION CHANGES THAT OCCURRED DURING YOUR HOSPITAL STAY New Medications [id number], [address], [place] [id number], [phone] doxycycline (doxycycline hyclate 100 mg Cap) 1 [...] forhead PATIENT EDUCATION INFORMATION Instructions: [facility] [place], [place] Dr. Ni Omalley Post-operative Instructions for [...] in mGy = na DAP = na [facility] Consultation Noteon 11-29-19 Consultation Note [id number]#1.00CD:127 [facility] Outside Recordson 11-24-2022 Outside Records [id number]#1.00CD:127 [facility] C Urineon 11-20-2022 Bacteria identified Cx [...] test [facility] performed [facility], [address] [place] [address], [phone] , , [facility] Comment on above: Performed By: #### 1 [id number], [id number] ####[facility] [address] [place] [address] Albuminon 11-18-2022 Albumin [Mass/Vol] 4.0 g/dL Normal 3.3-5.0 [facility] Comment on above: Performed By: #### 2 411633, 1477735, 8408508, 31876571, 818184350, 4743946, 0468422, 5980427, 9782885 ####[facility] [address] [place] [address] Auto Diffon 11-18-2022 Basophils/100 WBC (Bld) 0.2 % Normal 0.0-2.0 [facility] Comment on above: Order Comment: Order Added by Discern Expert. Performed By: #### 2 [id number] #### [facility] [address] [place] [address] Basophils/Leukocytes Auto (Bld) [Pure # fraction] 0.0 E9/L Normal 0.0-0.2 [facility] Comment on above: Order Comment: Order Added by Discern Expert. Performed By: #### 2 [id number] #### [facility] [address] [place] [address] Eosinophils/100 WBC (Bld) 0.1 % Normal 0.0-8.0 [facility] Comment on above: Order Comment: Order Added by Discern Expert. Performed By: #### 2 [id number] #### [facility] [address] [place] [address] Eosinophils/Leukocytes Auto (Bld) [Pure # fraction] 0.0 E9/L Normal 0.0-0.5 [facility] Comment on above: Order Comment: Order Added by Discern Expert. Performed By: #### 2 [id number] #### [facility] [address] [place] [address] Lymphocytes/100 WBC (Bld) 8.6 % Low 14.0-50.0 [facility] Comment on above: Order Comment: Order Added by Discern Expert. Performed By: #### 2 [id number] #### [facility] [address] [place] [address] Lymphocytes/Leukocytes Auto (Bld) [Pure # fraction] 0.9 E9/L Low 1.0-4.0 [facility] Comment on above: Order Comment: Order Added by Discern Expert. Performed By: #### 2 [id number] #### [facility] [address] [place] [address] Monocytes/100 WBC (Bld) 7.1 % Normal 4.0-14.0 [facility] Comment on above: Order Comment: Order Added by Discern Expert. Performed By: #### 2 [id number] #### [facility] [address] [place] [address] Monocytes/Leukocytes Auto (Bld) [Pure # fraction] 0.7 E9/L Normal 0.2-1.0 [facility] Comment on above: Order Comment: Order Added by Discern Expert. Performed By: #### 2 [id number] #### [facility] [address] [place] [address] Neutrophils/100 WBC (Bld) 84.0 % High 36.0-75.0 [facility] Comment on above: Order Comment: Order Added by Discern Expert. Performed By: #### 2 [id number] #### [facility] [address] [place] [address] Neutrophils/Leukocytes Auto (Bld) [Pure # fraction] 8.7 E9/L High 2.0-7.5 [facility] Comment on above: Order Comment: Order Added by Discern Expert. Performed By: #### 2 [id number] #### [facility] [address] [place] [address] BMPon 11-18-2022 Anion gap [Moles/Vol] 12 mmol/L Normal 6-16 [facility] Comment on above: Performed By: #### 2 [id number] #### [facility] [address] [place] [address] Calcium [Mass/Vol] 9.3 mg/dL Normal 8.9-11.1 [facility] Comment on above: Performed By: #### 2 75039597 #### [facility] [address] [place] [address] Chloride [Moles/Vol] 109 mmol/L Normal 101-111 [facility] Comment on above: Performed By: #### 2 [id number] #### [facility] [address] [place] [address] CO2 [Moles/Vol] 24 mmol/L Normal 21-31 [facility] Comment on above: Performed By: #### 2 [id number] #### [facility] [address] [place] [address] Creatinine [Mass/Vol] 2.5 mg/dL High 0.5-1.3 [facility] Comment on above: Performed By: #### 2 [id number] #### [facility] [address] [place] [address] Glucose [Mass/Vol] 130 mg/dL Normal 55-199 [facility] Comment on above: Result Comment: If t his glucose result represents a fasting glucose, interpretation should refer to the following reference range: 55-99 mg/dL Performed By: #### 2 [id number] #### [facility] [address] [place] [address] Potassium [Moles/Vol] 4.8 mmol/L Normal 3.5-5.3 [facility] Comment on above: Performed By: #### 2 [id number] #### [facility] [address] [place] [address] Sodium [Moles/Vol] 140 mmol/L Normal 135-145 [facility] Comment on above: Performed By: #### 2 [id number] #### [facility] [address] [place] [address] Urea nitrogen [Mass/Vol] 38 mg/dL High 5-21 [facility] Comment on above: Performed By: #### 2 [id number] #### [facility] [address] [place] [address] Urea nitrogen/Creatinine [Mass ratio] 15 No Units Normal 10-20 [facility] Comment on above: Performed By: #### 2 [id number] #### [facility] [address] [place] [address] CBC w/ Auto Diffon 3 Erythrocyte distribution width (RBC) [Ratio] 13.5 % Normal 10.9-14.2 [facility] Comment on above: Performed By: #### 2 [id number] #### [facility] [address] [place] [address] Hematocrit (Bld) [Volume fraction] 34.9 % Low 37.7-49.0 [facility] Comment on above: Performed By: #### 2 [id number] #### [facility] [address] [place] [address] Hemoglobin (Bld) [Mass/Vol] 11.7 g/dL Low 13.5-17.5 [facility] Comment on above: Performed By: #### 2 [id number] #### [facility] [address] [place] [address] MCH (RBC) [Entitic mass] 32.1 pg Normal 27.0-34.0 [facility] Comment on above: Performed By: #### 2 [id number] #### [facility] [address] [place] [address] MCHC (RBC) [Mass/Vol] 33.6 g/dL Normal 31.4-36.0 [facility] Comment on above: Performed By: #### 2 [id number] #### [facility] [address] [place] [address] MCV (RBC) [Entitic vol] 95.4 fL Normal 80.0-100.0 [facility] Comment on above: Performed By: #### 2 [id number] #### [facility] [address] [place] [address] Platelet mean volume (Bld) [Entitic vol] 8.7 fL Normal 6.4-10.8 [facility] Comment on above: Performed By: #### 2 [id number] #### [facility] [address] [place] [address] Platelets (Bld) [#/Vol] 214.0 E9/L Normal 150.0-500. 0 [facility] Comment on above: Performed By: #### 2 [id number] #### [facility] [address] [place] [address] RBC (Bld) [#/Vol] 3.7 E12/L Low 4.3-5.9 [facility] Comment on above: Performed By: #### 2 [id number] #### [facility] [address] [place] [address] WBC corrected for nucl RBC Auto (Bld) [#/Vol] 10.4 E9/L Normal 4.0-11.0 [facility] Comment on above: Performed By: #### 2 [id number] #### [facility] [address] [place] [address] Consent for Treatmenton 10-26 Consent for Treatment [id number]#1.00CD:127 Normal [facility] Consent for Treatment [id number]#1.00CD:127 Normal [facility] Ferritinon 11-18-2022 Ferritin [Mass/Vol] 192 ng/mL Normal 24-336 [facility] Comment on above: Result Comment: NORM ALS MEN <30 YRS 16-132 ng/mL MEN >30 YRS 8-338 ng/mL WOMEN (PREMEN) 6-104 ng/mL WOMEN (POSTMEN) 12-210 ng/mL Performed By: #### 2 882596, 2541793, 3095303, 35238254, 314721446, 4722637, 2344571, 9992665, 1149749 ####[facility] [address] [place] [address] Folateon 11-18-2022 Folate [Mass/Vol] ng/mL Normal >=6.7 [facility] Comment on above: Performed By: #### 2 637464, 4243168, 0556650, 56888515, 740685588, 8306052, 0164220, 7535363, 4840046 ####[facility] [address] [place] [address] Ironon 11-18-2022 Iron [Mass/Vol] 102 microgram/dL Normal 35-153 [facility] Comment on above: Performed By: #### 2 287647, 6232861, 3240900, 66696620, 237237464, 7914830, 2451275, 3935608, 7111897 ####[facility] [address] [place] [address] PT & PTTon 11-18-2022 aPTT Coag (PPP) [...] the same coagulation reagent and instrumentation as [facility]. Currently there are no coagulation studies available worldwide for children to 14 days, and no normal ranges. Heparin therapeutic range (represented by Anti-Factor Xa activity of 0.2 - 0.4 U/mL) corresponds to PTT of 56.6 - 109.0 sec. Performed By: #### 2 [id number] #### [facility] [address] [place] [address] INR Coag (PPP) [Relative time] 1.1 {INR} Invalid Interpretation Code [facility] Comment on above: Result Comment: INR results are specifically intended to assess patients stabilized on long-term Anticoagulation therapy suggested INR?s ?Less Intensive Anticoagulation? 2.0 ? 3.0 Conventional Range 3.0 ? 4.5 Performed By: #### 2 [id number] #### [facility] [address] [place] [address] PT Coag (PPP) [Time] 11.9 second(s) Normal [...] the same coagulation reagent and instrumentation as [facility]. Currently there are no coagulation studies available worldwide for children to 14 days, and no normal ranges. Performed By: #### 2 [id number] #### [facility] [address] [place] [address] Phosphoruson 11-18-2022 Phosphate [Mass/Vol] 4.4 mg/dL Normal 1.9-4.6 [facility] Comment on above: Performed By: #### 2 382331, 2342897, 0549229, 43198865, 962051775, 0103224, 2192024, 5175098, 3380824 ####[facility] [address] [place] [address] Physician Orderon 11-18-2022 Physician Order [id number]#1.00CD:127 Normal [facility] TIBC Calculatedon 11-18-2022 Iron binding capacity [Mass/Vol] 292 microgram/dL Normal 250-400 [facility] Comment on above: Performed By: #### 2 294546, 8282627, 9905969, 58154201, 721757385, 3861554, 6373806, 8762040, 8980389 ####[facility] [address] [place] [address] Transferrin [Mass/Vol] 208 mg/dL Normal 200-370 [facility] Comment on above: Performed By: #### 2 025937, 0808346, 7181610, 58475751, 995851250, 0298731, 8691015, 0485835, 1247581 ####[facility] [address] [place] [address] U Protein/Creat Ratioon 10-26 Albumin Elph (U) [Mass fraction] 25.2 mg/dL Invalid Interpretation Code [facility] Comment on above: Result Comment: The reference range and other method performance specifications have not been established for this test; results should be integrated into the clinical context for interpretation. Performed By: #### 1 [id number] #### [facility] [address] [place] [address] Creatinine (U) [Mass/Vol] 80.6 mg/dL Invalid Interpretation Code [facility] Comment on above: Result Comment: The reference range and other method performance specifications have not been established for this test; results should be integrated into the clinical context for interpretation. Performed By: #### 1 [id number] #### [facility] [address] [place] [address] U Prot/Creat Ratio 312.70 mg/gm Cr High .00-200.00 F [facility] Comment on above: Performed By: #### 1 [id number] #### [facility] [address] [place] [address] UA With Cult Reflexon 2022 Bilirubin Ql (U) Negative Normal Negative [facility] Comment on above: Performed By: #### 1 2089544, 4024331 #### [facility] [address] [place] [address] Clarity (U) CLEAR Normal Clear [facility] Comment on above: Performed By: #### 1 8134623, 6355644 #### [facility] [address] [place] [address] Color (U) YELLOW Normal Yellow [facility] Comment on above: Performed By: #### 1 1918143, 2652058 #### [facility] [address] [place] [address] Epithelial cells.squamous LM.HPF (Urine sed) [#/Area] 0-2 Normal 0-2 [facility] Comment on above: Performed By: #### 1 5926925, 5873615 #### [facility] [address] [place] [address] Glucose Test strip (U) [Mass/Vol] Negative Normal Negative [facility] Comment on above: Performed By: #### 1 3081924, 3385707 #### [facility] [address] [place] [address] Hemoglobin Ql (U) 3+ Abnormal Negative [facility] Comment on above: Performed By: #### 1 8691470, 4324189 #### [facility] [address] [place] [address] Ketones (U) [Mass/Vol] Negative Normal Negative [facility] Comment on above: Performed By: #### 1 8963502, 8285581 #### [facility] [address] [place] [address] Evans.plasma/Evans .RBC (Bld) [Mass ratio] >30 Abnormal 0-3 [facility] Comment on above: Performed By: #### 1 4114575, 9719967 #### [facility] [address] [place] [address] Nitrite Ql (U) Negative Normal Negative [facility] Comment on above: Performed By: #### 1 9959085, 0596082 #### [facility] [address] [place] [address] pH (U) 6.0 [pH] Invalid Interpretation Code 5.0-9.0 [facility] Comment on above: Performed By: #### 1 3874198, 2261651 #### [facility] [address] [place] [address] Protein (U) [Mass/Vol] TRACE Abnormal Negative [facility] Comment on above: Performed By: #### 1 0173549, 8800893 #### [facility] [address] [place] [address] Specific gravity (U) [Rel density] 1.020 Invalid Interpretation Code 1.005-1.03 0 [facility] Comment on above: Performed By: #### 1 1500918, 7464270 #### [facility] [address] [place] [address] Type of Urine collection method Clean Catch Normal [facility] Comment on above: Performed By: #### 1 3531688, 2050615 #### [facility] [address] [place] [address] Urobilinogen Qn (U) 0.2 {Wil'U}/dL Normal 0.0-1.0 [facility] Comment on above: Performed By: #### 1 5113692, 9268236 #### [facility] [address] [place] [address] WBC Auto Ql (U) 1+ Abnormal Negative [facility] Comment on above: Performed By: #### 1 1050290, 1119807 #### [facility] [address] [place] [address] WBC LM.HPF (Urine sed) [#/Area] 0-5 Normal 0-5 [facility] Comment on above: Performed By: #### 1 0022728, 1758299 #### [facility] [address] [place] [address] Uric Acidon 11-18-2022 Urate [Mass/Vol] 7.0 mg/dL Normal 2.2-7.4 [facility] Comment on above: Performed By: #### 2 806997, 4063121, [id number], [id number], [id number], [id number], [id number], [id number], [id number] ####[facility] [address] [place] [address] Vit B12on 11-18-2022 Cobalamin (Vitamin B12) [Mass/Vol] 495 pg/mL Normal 50-1500 [facility] Comment on above: Performed By: #### 2 [id number], [id number], [id number], [id number], [id number], [id number], [id number], [id number], [id number] ####[facility] [address] [place] [address] Vitamin D 25 Hydroxyon 11-18 25-hydroxyvitamin D3 [Mass/Vol] 64.8 ng/mL Normal 30.0-100.0 [facility] Comment on above: Result Comment: Vit grewal D deficiency has been defined as a level of serum 25-OH vitamin D less than 20 ng/mL (1,2) by the [place] [employer] and an Endocrine Society practice guideline. The Endocrine Society further defined vitamin D insufficiency as a level between 21 and 29 ng/mL (2). 1. IOM ([place] of [employer]). 2010. Dietary reference intakes for calcium and D. [place]: The National Academies Press. 2. Kortney MF, Candie NC, Ekaterina EWINBERG, et al. Evaluation, treatment, and prevention of vitamin D deficiency: an Endocrine Society clinical practice guideline. JCEM. 2010; 96 (7):1911-30. Performed By: #### 2 [id number], [id number], [id number], [id number], [id number], [id number], [id number], [id number], [id number] ####[facility] [address] [place] [address] eGFRon 11-18-2022 GFR/1.73 sq M.predicted among non-blacks MDRD (S/P/Bld) [Vol rate/Area] 25 mL/min/1.73 m2 Low >=59 [facility] Comment on above: Order Comment: Order added by Discern Expert. Result Comment: Behavioral Interventionist christa kidney disease could be indicated at eGFR's of less than 60 mL/min/1.73m2. Kidney failure is indicated at less than 15 mL/min/1.73m2. Performed By: #### 2 [id number] #### [facility] [address] [place] [address] Lab Reportson 11-12-2022 Lab Reports [id number]#1.00CD:127 Normal [facility] Lab Reports [id number]#1.00CD:127 Normal [facility] Lab Reports [id number]#1.00CD:127 Normal [facility] Lab Reports [id number]#1.00CD:127 Normal [facility] PSA, FREE AND TOTAL RATIOon 11-09-2022 % Free PSA 11.3 % Normal [facility] Comment on above: Result Comment: The [...] men. Performed By: #### P SAFREE #### [facility] [address] [place] [address] Dr. Alicia Patel Prostate specific Ag [Mass/Vol] 4.6 ng/mL Critically high 0.0-4.0 [facility] Comment on above: Result Comment: Dwight JUAREZ methodology. . According to the [place] [employer], Serum PSA should decrease and [...] disease. Performed By: #### P SAFREE #### [facility] [address] [place] [address] Dr. Alicia Patel PSA, Free 0.52 ng/mL Normal N/A [facility] Comment on above: Result Comment: Dwight JUAREZ methodology. Performed By: #### P SAFREE #### [facility] [address] [place] [address] Dr. Alicia Patel INSULINon 11-08-2022 Insulin 18.5 uIU/mL Normal 2.6-24.9 [facility] Comment on above: Performed By: #### T SH, LIPID, T4, FT3, CMP #### [facility] [address] [place] [address] Dr. Alicia Patel CBC AUTO DIFFon 11-06-2022 BASO # 0.0 103/ul Normal 0.0-0.1 [facility] Comment on above: Performed By: #### C BC #### [facility] [address] [place] [address] Dr. Alicia Patel Basophils/100 WBC (Bld) 0.4 % Normal 0.2-2.0 [facility] Comment on above: Performed By: #### C BC #### [facility] [address] [place] [address] Dr. Alicia Patel EO # 0.2 103/ul Normal 0.0-0.7 [facility] Comment on above: Performed By: #### C BC #### [facility] [address] [place] [address] Dr. Alicia Patel Eosinophils/100 WBC (Bld) 4.6 % Normal 0.9-7.0 [facility] Comment on above: Performed By: #### C BC #### [facility] [address] [place] [address] Dr. Alicia Patel Erythrocyte distribution width (RBC) [Ratio] 13.2 % Normal 11.0-15.0 [facility] Comment on above: Performed By: #### C BC #### [facility] [address] [place] [address] Dr. Alicia Patel Hematocrit (Bld) [Volume fraction] 34.6 % Critically low 42.0-54.0 [facility] Comment on above: Performed By: #### C BC #### [facility] [address] [address] [address] Alciia Patel Hemoglobin (Bld) [Mass/Vol] 11.4 g/dL Critically low 14.0-18.0 [facility] Comment on above: Performed By: #### C BC #### [facility] [address] [address] [address] Alicia Patel IG # 0.03 10e3/ul Normal 0.00-0.03 [facility] Comment on above: Performed By: #### C BC #### [facility] [address] [address] [address] Alicia Patel IG % 0.6 % Critically high 0.0-0.5 [facility] Comment on above: Performed By: #### C BC #### [facility] [address] [place] [address] Dr. Alicia Patel LYMPH # 0.9 103/ul Critically low 1.2-3.8 [facility] Comment on above: Performed By: #### C BC #### [facility] [address] [place] [address] Dr. Alicia Patel Lymphocytes/100 WBC (Bld) 16.3 % Critically low 20.5-60.0 [facility] Comment on above: Performed By: #### C BC #### [facility] [address] [place] [address] Dr. Alicia Patel MANUAL DIFF REQ NO Normal [facility] Comment on above: Performed By: #### C BC #### [facility] [address] [address] [address] Alicia Patel MCH (RBC) [Entitic mass] 32.9 pg Normal 25.9-34.0 [facility] Comment on above: Performed By: #### C BC #### [facility] [address] [place] [address] Dr. Alicia Patel MCHC (RBC) [Mass/Vol] 32.9 g/dL Normal 29.9-35.2 [facility] Comment on above: Performed By: #### C BC #### [facility] [address] [place], [place] [id number] Dr. Alicia Patel MCV (RBC) [Entitic vol] 99.7 fL Critically high 80.0-94.0 [facility] Comment on above: Performed By: #### C BC #### [facility] [address] [place] [address] Dr. Alicia Patel MONO # 0.6 103/ul Normal 0.3-0.8 [facility] Comment on above: Performed By: #### C BC #### [facility] [address] [place] [address] Dr. Alicia Patel Monocytes/100 WBC (Bld) 12.0 % Normal 1.7-12.0 [facility] Comment on above: Performed By: #### C BC #### [facility] [address] [place] [address] Dr. Alicia Patel NEUT # 3.5 103/ul Normal 1.4-6.5 [facility] Comment on above: Performed By: #### C BC #### [facility] [address] [place] [address] Dr. Alicia Patel Neutrophils/100 WBC (Bld) 66.1 % Normal 43.0-75.0 [facility] Comment on above: Performed By: #### C BC #### [facility] [address] [place] [address] Dr. Alicia Patel Platelet mean volume (Bld) [Entitic vol] 10.1 fL Normal 9.5-13.5 [facility] Comment on above: Performed By: #### C BC #### [facility] [address] [place] [address] Dr. Alicia Patel PLT 168 103/ul Normal 150-450 [facility] Comment on above: Performed By: #### C BC #### [facility] [address] [place] [address] Dr. Alicia Patel RBC 3.47 106/ul Critically low 4.70-6.10 [facility] Comment on above: Performed By: #### C BC #### [facility] [address] [place] [address] Dr. Alicia Patel WBC 5.2 103/ul Normal 4.0-11.0 [facility] Comment on above: Performed By: #### C BC #### [facility] [address] [place] [address] Dr. Alicia Patel FREE T3on 11-06-2022 FREE T3 2.78 pg/mlL Normal 2.18-3.98 [facility] Comment on above: Performed By: #### U RTPCR #### [facility] [address] [place] [address] Dr. Alicia Patel GLYCOHEMOGLOBIN A1Con 2022 ADA RECOMMENDATION SEE BELOW Normal [facility] Comment on above: Result Comment: ADA RECOMMENDED LIMIT 4.0 - 6.0 ADA THERAPEUTIC TARGET < 7.0 ACTION SUGGESTED > 7.0 Performed By: #### T SH, LIPID, T4, FT3, CMP #### [facility] [address] [place] [address] Dr. Alicia Patel Glucose [Mass/Vol] 120 mg/dL Normal [facility] Comment on above: Performed By: #### T SH, LIPID, T4, FT3, CMP #### [facility] [address] [place] [address] Dr. Alicia Patel HbA1c (Bld) [Mass fraction] 5.8 % Normal 4.5-6.2 [facility] Comment on above: Performed By: #### T SH, LIPID, T4, FT3, CMP #### [facility] [address] [place] [address] Dr. Alicia Patel LIPID PROFILEon 11-06-2022 CHOL-HDL RATIO NORM SEE BELOW Normal [facility] Comment on above: Result Comment: 3.3 - 4.4 LOW RISK 4.4 - 7.1 AVERAGE RISK 7.1 - 11.0 MODERATE RISK >11.0 HIGH RISK Performed By: #### U RTPCR #### [facility] [address] [place] [address] Dr. Alicia Patel Cholesterol [Mass/Vol] 107 mg/dL Normal <=200 [facility] Comment on above: Performed By: #### U RTPCR #### [facility] [address] [address] [address] Alicia Patel Cholesterol in HDL [Mass/Vol] 34 mg/dL Critically low 40-60 [facility] Comment on above: Performed By: #### U RTPCR #### [facility] [address] [address] [address] Alicia Patel Cholesterol in LDL [Mass/Vol] 58.8 mg/dL Normal [facility] Comment on above: Performed By: #### U RTPCR #### [facility] [address] [address] [address] Alicia Patel Cholesterol.total/Chol esterol in HDL [Mass ratio] 3.1 {ratio} Normal [facility] Comment on above: Performed By: #### U RTPCR #### [facility] [address] [address] [address] Alicia Patel HDL NORMAL > or = 60 mg/dl - LO W CARDIOVASCULAR RISK <40 mg/dl - HIGH CARDIOVASCULAR RISK Normal [facility] Comment on above: Performed By: #### U RTPCR #### [facility] [address] [address] [address] Alicia Patel LDL CALC NORMAL SEE BELOW Normal [facility] Comment on above: Result Comment: <100 mg/dl OPTIMAL 100 - 129 mg/dl NEAR OR ABOVE OPTIMAL 130 - 159 mg/dl BORDERLINE HIGH 160 - 189 mg/dl HIGH >190 mg/dl VERY HIGH Performed By: #### U RTPCR #### [facility] [address] [address] [address] Alicia Patel Triglyceride [Mass/Vol] 71 mg/dL Normal <=150 [facility] Comment on above: Performed By: #### U RTPCR #### [facility] [address] [address] [address] Alicia Patel VLDL CALC 14.2 mg/dL Normal [facility] Comment on above: Performed By: #### U RTPCR #### [facility] [address] [address] [address] Alicia Patel PROF 14(COMP METB)on 023 Albumin [Mass/Vol] 3.4 g/dL Normal 3.4-5.0 [facility] Comment on above: Performed By: #### T SH, LIPID, T4, FT3, CMP #### [facility] [address] [place] [address] Dr. Alicia Patel Albumin/Globulin [Mass ratio] 0.9 {ratio} Normal [facility] Comment on above: Performed By: #### T SH, LIPID, T4, FT3, CMP #### [facility] [address] [place] [address] Dr. Alicia Patel ALP [Catalytic activity/Vol] 75 U/L Normal 46-116 [facility] Comment on above: Performed By: #### T SH, LIPID, T4, FT3, CMP #### [facility] [address] [place] [address] Dr. Alicia Patel ALT [Catalytic activity/Vol] 31 U/L Normal 16-63 [facility] Comment on above: Performed By: #### T SH, LIPID, T4, FT3, CMP #### [facility] [address] [place] [address] Dr. Alicia Patel Anion gap [Moles/Vol] 14.4 mmol/L Normal [facility] Comment on above: Performed By: #### T SH, LIPID, T4, FT3, CMP #### [facility] [address] [place] [address] Dr. Alicia Patel AST [Catalytic activity/Vol] 23 U/L Normal 15-37 [facility] Comment on above: Performed By: #### T SH, LIPID, T4, FT3, CMP #### [facility] [address] [place] [address] Dr. Alicia Patel Bilirubin [Mass/Vol] 0.5 mg/dL Normal 0.2-1.0 [facility] Comment on above: Performed By: #### T SH, LIPID, T4, FT3, CMP #### [facility] [address] [place] [address] Dr. Alicia Patel Calcium [Mass/Vol] 8.8 mg/dL Normal 8.5-10.1 [facility] Comment on above: Performed By: #### T SH, LIPID, T4, FT3, CMP #### [facility] [address] [place] [address] Dr. Alicia Patel Chloride [Moles/Vol] 110 mmol/L Critically high 98-107 [facility] Comment on above: Performed By: #### T SH, LIPID, T4, FT3, CMP #### [facility] [address] [place] [address] Dr. Alicia Patel CO2 [Moles/Vol] 24.2 mmol/L Normal 21.0-32.0 [facility] Comment on above: Performed By: #### T SH, LIPID, T4, FT3, CMP #### [facility] [address] [place] [address] Dr. Alicia Patel Creatinine [Mass/Vol] 2.41 mg/dL Critically high 0.70-1.30 [facility] Comment on above: Performed By: #### T SH, LIPID, T4, FT3, CMP #### [facility] [address] [place] [address] Dr. Alicia Patel EGFR-AF BULGARIAN 32 mL/min/1.73m2 Critically low >=60 [facility] Comment on above: Performed By: #### T SH, LIPID, T4, FT3, CMP #### [facility] [address] [place] [address] Dr. Alicia Patel EGFR-NON AF BULGARIAN 26 mL/min/1.73m2 Critically low >=60 [facility] Comment on above: Performed By: #### T SH, LIPID, T4, FT3, CMP #### [facility] [address] [place] [address] Dr. Alicia Patel Globulin (S) [Mass/Vol] 3.6 g/dL Normal [facility] Comment on above: Performed By: #### T SH, LIPID, T4, FT3, CMP #### [facility] [address] [place] [address] Dr. Alicia Patel Glucose [Mass/Vol] 72 mg/dL Critically low 74-106 [facility] Comment on above: Performed By: #### T SH, LIPID, T4, FT3, CMP #### [facility] [address] [place] [address] Dr. Alicia Patel Potassium [Moles/Vol] 4.6 mmol/L Normal 3.5-5.1 [facility] Comment on above: Performed By: #### T SH, LIPID, T4, FT3, CMP #### [facility] [address] [place] [address] Dr. Alicia Patel Protein [Mass/Vol] 7.0 g/dL Normal 6.4-8.2 [facility] Comment on above: Performed By: #### T SH, LIPID, T4, FT3, CMP #### [facility] [address] [place] [address] Dr. Alicia Patel Sodium [Moles/Vol] 144 mmol/L Normal 136-145 [facility] Comment on above: Performed By: #### T SH, LIPID, T4, FT3, CMP #### [facility] [address] [place] [address] Dr. Alicia Patel Urea nitrogen [Mass/Vol] 32.0 mg/dL Critically high 7.0-18.0 [facility] Comment on above: Performed By: #### T SH, LIPID, T4, FT3, CMP #### [facility] [address] [place] [address] Dr. Alicia Patel Urea nitrogen/Creatinine [Mass ratio] 13.3 mg/mg Normal [facility] Comment on above: Performed By: #### T SH, LIPID, T4, FT3, CMP #### [facility] [address] [place] [address] Dr. Alicia Patel T4on 11-06-2022 T4 [Mass/Vol] 7.90 ug/dL Normal 4.50-12.10 [facility] Comment on above: Performed By: #### T SH, LIPID, T4, FT3, CMP #### [facility] [address] [place] [address] Dr. Alicia Patel TSHon 11-06-2022 TSH 0.263 uIU/mL Critically low 0.358-3.74 0 [facility] Comment on above: Performed By: #### T SH, LIPID, T4, FT3, CMP #### [facility] [address] [place], [place] [address] Dr. Alicia Patel URIC ACID SERUMon 11-06-2022 Urate [Mass/Vol] 7.3 mg/dL Critically high 3.5-7.2 [facility] Comment on above: Performed By: #### T SH, LIPID, T4, FT3, CMP #### [facility] [address] [address] [address] Alicia Patel Pre-Certification Formon Pre-Certification Form [id number]#1.00CD:127 Normal [facility] ECHOCARDIO M/2D COMPLETEon 0 10-26-2022 ECHOCARDIO M/2D COMPLETE Patient: VICTORINO SMYTH Exam Date: 10/26/2022 : 1940 Gender:M Ordering : IRIS CORONEL Admission #: [id number] Family : DR TRAY ALFARO . Order #: [id number] CLICK HERE TO VIEW EXAM ECHOCARDIOGRAM REPORT [...] Ksenia Glasgow M.D. on 10/28/2022 at 13:02 [facility] RAD - MISCon 10-25-2022 RAD - MIS [id number]#1.00CD:127 Normal [facility] XR KUB 1 [...] by: TYLER MONSIVAIS Date: 2022-10-22 09:12 Normal [facility] RAD - Ultrasound Reporton RAD - Ultrasound Report [id number]#1.00CD:127 Normal [facility] US KIDNEYSon 10-18-2022 US KIDNEYS EXAMINATION: US [facility] HISTORY: Kidney stone COMPARISON: Ultrasound kidneys [...] by: TESS FORD Date: 2022-10-18 07:04 Normal [facility] IntraOperative Documentson 0 10-15-2022 IntraOperative Documents [id number]#1.00CD:127 Normal [facility] BNPon 10-14-2022 Natriuretic peptide B (Bld) [Mass/Vol] 300.0 pg/mL Normal <=1,800.0 [facility] Comment on above: Performed By: #### T SH, LIPID, T4, FT3, CMP #### [facility] [address] [place] [address] Dr. Alicia Patel CBC AUTO DIFFon 10-14-2022 BASO # 0.0 103/ul Normal 0.0-0.1 [facility] Comment on above: Performed By: #### T SH, LIPID, T4, FT3, CMP #### [facility] [address] [place] [address] Dr. Alicia Patel Basophils/100 WBC (Bld) 0.6 % Normal 0.2-2.0 [facility] Comment on above: Performed By: #### T SH, LIPID, T4, FT3, CMP #### [facility] [address] [place] [address] Dr. Alicia Patel EO # 0.2 103/ul Normal 0.0-0.7 [facility] Comment on above: Performed By: #### T SH, LIPID, T4, FT3, CMP #### [facility] [address] [place] [address] Dr. Alicia Patel Eosinophils/100 WBC (Bld) 4.6 % Normal 0.9-7.0 [facility] Comment on above: Performed By: #### T SH, LIPID, T4, FT3, CMP #### [facility] [address] [place] [address] Dr. Alicia Patel Erythrocyte distribution width (RBC) [Ratio] 14.2 % Normal 11.0-15.0 [facility] Comment on above: Performed By: #### T SH, LIPID, T4, FT3, CMP #### [facility] [address] [place] [address] Dr. Alicia Patel Hematocrit (Bld) [Volume fraction] 36.1 % Critically low 42.0-54.0 [facility] Comment on above: Performed By: #### T SH, LIPID, T4, FT3, CMP #### [facility] [address] [place] [address] Dr. Alicia Patel Hemoglobin (Bld) [Mass/Vol] 11.8 g/dL Critically low 14.0-18.0 [facility] Comment on above: Performed By: #### T SH, LIPID, T4, FT3, CMP #### [facility] [address] [place] [address] Dr. Alicia Patel IG # 0.03 10e3/ul Normal 0.00-0.03 [facility] Comment on above: Performed By: #### T SH, LIPID, T4, FT3, CMP #### [facility] [address] [place] [address] Dr. Alicia Patel IG % 0.6 % Critically high 0.0-0.5 [facility] Comment on above: Performed By: #### T SH, LIPID, T4, FT3, CMP #### [facility] [address] [place] [address] Dr. Alicia Patel LYMPH # 1.1 103/ul Critically low 1.2-3.8 [facility] Comment on above: Performed By: #### T SH, LIPID, T4, FT3, CMP #### [facility] [address] [place] [address] Dr. Alicia Patel Lymphocytes/100 WBC (Bld) 22.6 % Normal 20.5-60.0 [facility] Comment on above: Performed By: #### T SH, LIPID, T4, FT3, CMP #### [facility] [address] [place] [address] Dr. Alicia Patel MANUAL DIFF REQ NO Normal [facility] Comment on above: Performed By: #### T SH, LIPID, T4, FT3, CMP #### [facility] [address] [place] [address] Dr. Alicia Patel MCH (RBC) [Entitic mass] 33.2 pg Normal 25.9-34.0 [facility] Comment on above: Performed By: #### T SH, LIPID, T4, FT3, CMP #### [facility] [address] [place] [address] Dr. Alicia Patel MCHC (RBC) [Mass/Vol] 32.7 g/dL Normal 29.9-35.2 [facility] Comment on above: Performed By: #### T SH, LIPID, T4, FT3, CMP #### [facility] [address] [place] [address] Dr. Alicia Patel MCV (RBC) [Entitic vol] 101.7 fL Critically high 80.0-94.0 [facility] Comment on above: Performed By: #### T SH, LIPID, T4, FT3, CMP #### [facility] [address] [place] [address] Dr. Alicia Patel MONO # 0.7 103/ul Normal 0.3-0.8 [facility] Comment on above: Performed By: #### T SH, LIPID, T4, FT3, CMP #### [facility] [address] [place] [address] Dr. Alicia Patel Monocytes/100 WBC (Bld) 13.8 % Critically high 1.7-12.0 [facility] Comment on above: Performed By: #### T SH, LIPID, T4, FT3, CMP #### [facility] [address] [place] [address] Dr. Alicia Patel NEUT # 2.9 103/ul Normal 1.4-6.5 [facility] Comment on above: Performed By: #### T SH, LIPID, T4, FT3, CMP #### [facility] [address] [place] [address] Dr. Alicia Patel Neutrophils/100 WBC (Bld) 57.8 % Normal 43.0-75.0 [facility] Comment on above: Performed By: #### T SH, LIPID, T4, FT3, CMP #### [facility] [address] [place] [address] Dr. Alicia Patel Platelet mean volume (Bld) [Entitic vol] 10.1 fL Normal 9.5-13.5 [facility] Comment on above: Performed By: #### T SH, LIPID, T4, FT3, CMP #### [facility] [address] [address] [address] Alicia Patel PLT 160 103/ul Normal 150-450 [facility] Comment on above: Performed By: #### T SH, LIPID, T4, FT3, CMP #### [facility] [address] [address] [address] Alicia Patel RBC 3.55 106/ul Critically low 4.70-6.10 [facility] Comment on above: Performed By: #### T SH, LIPID, T4, FT3, CMP #### [facility] [address] [place] [address] Dr. Alicia Patel WBC 5.0 103/ul Normal 4.0-11.0 [facility] Comment on above: Performed By: #### T SH, LIPID, T4, FT3, CMP #### [facility] [address] [place] [address] Dr. Alicia Patel Coding Summary.on 10-14-2022 Coding Summary. CD:[id number] Ww+PGh lYWQ+[id number] gND4gsTBeVZBs IC8+[id number] I2V92yei7nCSxmbPI3GOUdXmUo huutz2gxsBp9NWqcRpgcCvJv ZHAlaO05PEC7yQ99Ut96nNJauD Mmv8kyhCt1QvLkTDKpHRX1bUhe ALwtq9BgETZtU57yjWFxf1Z6 XXZqoRfifSXgAtQayFX7yN8iWJ jpeklvf0ajnrscTwo1io73pNZa v0W4cXI0I2VczwL5LPVlvALh CryrtWUEtM8toddno5gcsgusSe SjLYRpTVs9SBa4WVFpaSdtLuJi MZ84LJE1PBQzhaXkH8FnFVJc nUyfXfU0c6K1Un6ZT3WNQpqeE5 VNTUFSWTwvdGQ+SJ06jm23H2Fj WcdyLvn3KJFwLAV5uJA5xY2l BOGcSBoqv1J5rOM7X6FaohWadv 9od8qlMSJsYCslG61cuZFkp5J8 MLGpmIL7IFDmmXehFfPjhM13 Oyc+VPZiwPdol4LhGejut4abx1 jdeXj1OowiOQCrpvAacBhxGYZ4 j0DhHk5nGBRshEE2hRF3gA6i XaNiCpD9DZatQ887KzKbiYEcFd rzT51nL6XwoXS+YCQfJqd1MGTu eDkhSU1lM4JeAGBgaitcxRTs hSzkOT8lYLVixueoYBImoB1xAX KnQ9x7NsDwMhH6ALtlV0MlVOEg txpzFf27hF2dXlWvBqH6FXew U6PefjS7CBPczOLdIZnbXBF2R8 2jy3P4VZDiBAMaGQT0vWP9nS1u bGlnbjogbGVmdDsgdmVydGlj UQdlQUmpA873JQKpjTfyNtSfDF luZyBEYXRlOiAgMDQvMjAvMjAy MzwvdGQ+EHKiTVA9zJpaPUHh nBLaCOxiVi2jkSeocLtnYU6lAP VjhozjMAVkfD3qWDUheNLjyGxj JX2aCIQapnxrz565UqSoANM9 DMCooIQuU8OxeK8hHhOvUDKrUH PqX1WxyTTbWPjgT834NEsqEoG8 QWEwmeEaK9CcQENmbQbuOcT8 d0X7Tm4Ah7XnulpjO9FviSGhJc VuJopkMRb0N0EcDjcteTP+PC90 BPMsOJ40DEu4NZD9sQbtBByk CREhX8XvvI0sBqYzEMAkXYHsQa c+PHRhYmxlIHdpZHRoPScxMDAl LwFugIcbLV6oEj9wEOIyADCn tAaijFPhQtKjt8glYSFnBHtcJP 4cpUsrZ3UkjUB2KTOtb1t9Ys81 E39pM3YeyES+ZAItjAW6gGF4 nS4dXtZfFsZ3RKtpH747AuZieU NwBvdmr5mkr0bhoNj4SqS2WSRa eeAnlBtaFZI9p0OdXz79W58v IHdpZHRoPSIxNSUiIHZhbGlnbj 4qtM4sTc0+NOHubHW8pVA2fM0j NtJfWqI1NOsqH343UsSliNHx Uynji6ryh9wzpIm5AbGpNILapj VpgGpvQEJ5o8MgVk10V3LmfKpr v4PmUqd2jo27zCEfe4G1aOR0 Z9ToYBSnowpipNWqtSxiFD9yPV SrmdfpQFHqlB8gBHIrF3e5AsCi GrG2HComO3DflxV0LWSfmFVv FGZuhYNXeR7oduxas7wtdhdfQy YyEHCvQIu9YYp1OYTjePqjDqQi RRK3OhZ7WQP5rVMtlY6rnYwv eluqhW3jIwm+VQR3xHSzaXLWPM 1lOjwvdGQ+NHRiHFB8zFtpHWdd CJYbaL3jQMJbE3v2EdQeWbV2 GFqrB0PvqpA9APHqsNZgAPEsjX EVyK4qiyrlw1xdarmuDcQaHUTn LSb6IJd6YUAwzBbxPkHzNHH0 PfD6HOX7gGIjbQ0tjEudwpdhmL 9wOyc+CtieuYeaGEL8XYz4G7Ae Kwd0WHIbaMdgSC3zjIKrZWwm Zq4mxImifImpXO5uVWNzpkfqw4 01HiLtj1lrNCKqnZEeGKmqNMW4 B40hx1K9XWLzEWBjORP8rJY0 pB5gpHhguzwtcKLsrHrabwBdpT ueLRqxFLviL741SRXptNzeCgVr QBz1G1UvEwc7NJNdcQuwAK1f dGGsMHgdAw1ezSdayTueMQ3nSB Caolcis815TlBsg8hdAZPnrWBe JDczITK8T13nx9B0IDTsHMNg DZP3qPJ5aP8mxFooqmrajTCkaO kiyrBlpAkdLOnkAXgwB879ZVBa mQfaDmLcoIj3P7IgZyw1LJRy aZicKM7vxGUfPVwnWg8inGirbS udTV7aHGFvpoivx753MtPkx2br RSCmlXAaRSowOLC3G27el1N4 HKEjLORlMQQ0zZH9yL1cmFjfpx ogbGVmdDsgdmVydGljYWwtYWxp N364BTObnAitLsCybCmhpoDt QKlqZKh7C4JtAaxzsIZ+PC90YW IxVH54oSImxVCfe5oegHg3MgOh UBUsTWU0rImfDXrtt4QxAMEh Q63brWSzn4I4WDSzpUpyjINrKn FrpSC4rI6eYLniqwjny3kmsazj Tywva4vxdy37hU37R72qCOvc JSPaOQGfGYMwHKDgbVafij4crZ 9wIi8+ZZGgdVX2tAO1iC9oRMUe XsV2XEugP473UnEtxSTjFjnq p6bcc5ejmAv5OvV9HSFscjEqaH ygUUQ8m4LtEk07M42hDZguIYOq PYOwOOWyRDMjbBwgun8mdY3n Ii8+JCKzwNE6cSB6tD8rHoRqUt Q5TDvlJ157AaNrzYFuLiluA20h T1VjbAL+YAXcVpf1FCCyeAdf RU6ptYIjGHfdSh8iFPL2AeNrMj UzPQrmA3RyEJVbbkxjgfyloEI6 UXBoZSBboS95Zs9jvJznICXw gRIRdF4waeqjl3zsucpgCxCqFQ BkLFs1DTa7VCFfuLpqIbKlMCE9 GxE8OCD0vLHspZ4hwJbcngyr cR0lN9InMPNqsdavSg34uC0nBs JoBjI6DQdxKol+EZPRZQ7QRdzo NsGTAwONRIHCKJ29WV66lONw m9C7tUD8J6SzIEKtthhjbloywU O2MKJiBXYwpI78vBXuMTibIl8a d0E1r234VUIgKTYajU70Cq6d uYbwFFNraMJZfW9ffiibm3ende msIhAhLZIbYUt6HKm5QEHeqZcq PeKoRRT2LfW2XUP9aBHuuW3x cJumpgxyeN1vIyv+MDIvMDQvMT r8QcsafQA+GFEjYUW7uWsiOInv WPWrcG8iMTFcJ3l3WcSkYfJ7 UUycK1HrWYSanspiAp86qW9mDc McNxV5ODtnT5JnndB8QQLaxVOf ENsiCRU7N63yj2R9EPFzDACj LXA9dIE3tZ8pyXskosohgIUssX djfyPjsJyrHFioWAxhX068AORx pTxuGfytCHeiUOLyQF89YL63 wGVgv8H2cCA8E9XsSWSvuoggbb jvbTK1TDGdPYIirY89vKCfZIrz Cf1me6R2q895SGJmKIYqcF21 Dw9idQefEDIjyWPRrS0bgkoux1 uklpovAuFeEONhWBg0VGs7LYQd pXwwTyJqAFF7SgR8XZW4gDOf dW2lzCcantntlF4bApk+TWFsZT wvdGQ+UDCbNKS9uAklLHouUMIl tU4rFRNbB7u6TcVrOfQ3XJbj X5UjRMAslwjsFs39pH6aYtPmMl D3SCmzU5NtmwD6OYYtsYYkAYvs VRW3I43yi7W9JNTeAFCmVBI1 nYM2gV9qxElthkhzrSZukEwrqi ZgnWerWEvpKQkdU307LIIitWta TbCsBvSqTDFgihqfG0AyKDPV HJlhO7MmH3WhcCklkJJ+PC90cj 83V7CiXxlhFur7AZNuWQW9zWE6 eC5yHBNvTZbka3T2nOK2J3Rg zlEfyu7xr8tiZNKtZLidI37kbM Ewf9L0CTHudYM7ZKZccUofZoWo xS89Ukx+AUMkhUawm2PnYlau d9wik6baxTw7OlRhGTIjwvKnpD bhWFK4y8RyVy69A41bSHmgWUAx ZGInSVNoLXGkiDhixa9ecJ5z Ii8+FPQydJZ5nJL7zY9aBbPeYx E5RVtnO376DsDghGElNjqdy3hk a3yviYa1YwRsBWXlgaXqkTbi UEU3w5NuMi65B0LfzUglk0NvCf z0hn45rQQez2S0hKW0P5HsATKy lquxiPIhtPkyWJ5qFFVjuyjw WMGusT3nFEYwP9e1QjWsQiW6QK rnM9HwklD9WWQdnIMpNNAyuGAT pN3yxzobv6ehasyrHiQtWEPe YJo3VVv4TWInlKvvZwYzYJP8Tg U3YWG3dIWteO6shDvarkgqqF7n Oyc+SUs3b0uvvHCeLR4xbRQ0 NF85VJ17hPHpc1L2uIK4Y0LsDT JpjknzrvfktSM2VJGlNYLohG91 Pw9teJsuIq9mIWHfILW1WWHj gBBiS1JvjL4dMoYfHVUrAWZiX5 DfmMRhRKljJ602VQkzYoU6ZBDe aaDkO1DnMOYekSwsIfE5b2L9 Pq3ZOM25GU47CZ11qOGjd3A0zD J8M1KzCLDkuqcgivqkeML1JYRa MCYqrG96Lm9coRjpVq5uMQLl FUL0IZNlzLRpC8UpoZ4bZkMiFV BxTIYnB4RakTZyTTnfZ909TKiu ScK0PTSmvrEbJ3EnHWDxtJom VrB4d7T3Sw3MDe83ZE56CQ33kU Udy6Z0fAT6K0XyGGGvntxatotl vIJ8BEPoYTBrjL65Bz1bzUkz Oa7uASRtNNR5HNSjwMEjX4MumB 2yMhUjICUiBOMeK1KkiGHfPZdl O544OYxlEqN8PFIajtVkO8Dd NBMzpPynRwL2c3A7Qw6WWLnbql g6A7FwGqcwqOU+HA35GKFzDC67 mSOtuIYar4mmrXc9MqUiPWEa DMS2sNqf (more content not included)... Normal [facility] PROF CHEM 8 (BAS METB)on Anion gap [Moles/Vol] 13.9 mmol/L Normal [facility] Comment on above: Performed By: #### T SH, LIPID, T4, FT3, CMP #### [facility] [address] [address] [address] Alicia Patel Calcium [Mass/Vol] 8.3 mg/dL Critically low 8.5-10.1 [facility] Comment on above: Performed By: #### T SH, LIPID, T4, FT3, CMP #### [facility] [address] [address] [address] Alicia Patel Chloride [Moles/Vol] 108 mmol/L Critically high 98-107 [facility] Comment on above: Performed By: #### T SH, LIPID, T4, FT3, CMP #### [facility] [address] [address] [address] Alicia Patel CO2 [Moles/Vol] 23.5 mmol/L Normal 21.0-32.0 [facility] Comment on above: Performed By: #### T SH, LIPID, T4, FT3, CMP #### [facility] [address] [place] [address] Dr. Alicia Patel Creatinine [Mass/Vol] 2.41 mg/dL Critically high 0.70-1.30 [facility] Comment on above: Performed By: #### T SH, LIPID, T4, FT3, CMP #### [facility] [address] [place] [address] Dr. Alicia Patel EGFR-AF BULGARIAN 32 mL/min/1.73m2 Critically low >=60 [facility] Comment on above: Performed By: #### T SH, LIPID, T4, FT3, CMP #### [facility] [address] [place] [address] Dr. Alicia Patel EGFR-NON AF BULGARIAN 26 mL/min/1.73m2 Critically low >=60 [facility] Comment on above: Performed By: #### T SH, LIPID, T4, FT3, CMP #### [facility] [address] [place] [address] Dr. Alicia Patel Glucose [Mass/Vol] 74 mg/dL Normal 74-106 [facility] Comment on above: Performed By: #### T SH, LIPID, T4, FT3, CMP #### [facility] [address] [place] [address] Dr. Alicia Patel Potassium [Moles/Vol] 4.4 mmol/L Normal 3.5-5.1 [facility] Comment on above: Performed By: #### T SH, LIPID, T4, FT3, CMP #### [facility] [address] [address] [address] Alicia Patel Sodium [Moles/Vol] 141 mmol/L Normal 136-145 [facility] Comment on above: Performed By: #### T SH, LIPID, T4, FT3, CMP #### [facility] [address] [place] [address] Dr. Alicia Patel Urea nitrogen [Mass/Vol] 36.0 mg/dL Critically high 7.0-18.0 [facility] Comment on above: Performed By: #### T SH, LIPID, T4, FT3, CMP #### [facility] [address] [address] [address] Alicia Patel Urea nitrogen/Creatinine [Mass ratio] 14.9 mg/mg Normal [facility] Comment on above: Performed By: #### T SH, LIPID, T4, FT3, CMP #### [facility] [address] [place] [address] Dr. Alicia Patel TROPONIN, HIGH SENSITIVITYon 10-14-2022 HSTROP 9.6 pg/mL Normal 4.0-76.1 [facility] Comment on above: Result Comment: CUT- OFF POINTS HAVE BEEN ESTABLISHED BASED ON THE FOURTH UNIVERSAL DEFINITIONS OF MYOCARDIAL INFARCTION. THE UPPER REFERENCE LIMIT (URL) OF TROPONIN, DEFINED THE 99TH PERCENTILE OF cTnI DISTRIBUTION IN A REFERENCE POPULATION, HAS BEEN CONFIRMED THE DECISION THRESHOLD FOR [place] DIAGNOSIS. Performed By: #### T SH, LIPID, T4, FT3, CMP #### [facility] [address] [place] [address] Dr. Alicia Patel Main OR Intraoperative Recor don 10-13-2022 Main OR Intraoperative Record IntraOp Document Type FT Summary Primary Physician: Ni OLIVARES MD Finalized Date/Time: 10/13/22 15:17:44 Pt. Name: VICTORINO SMYTH/Sex: 1940 Male Med Rec #: [id number] Physician: Ni OLIVARES MD Financial #: [id number] Pt. Type: A Room/Bed: 06/ Admit/Disch: 10/07/22 [...] Role Performed Anesthesiologist of Surgeon - Primary Lead Java J2Ee Developer - Primary Record Time In 10/07/22 15:01:00 [...] and tissue Entry 1 Skin Integrity Intact, [place], Warm, and Skin Abnormality No Dry Outcomes [...] Resting at Side (more content not included)... [facility] Consent for Anesthesiaon Consent for Anesthesia [id number]#1.00CD:127 [facility] Discharge Instructionson Discharge Instructions [id number]#1.00CD:127 [facility] IntraOperative Documentson 0 10-08-2022 IntraOperative Documents [id number]#1.00CD:127 [facility] IntraOperative Documents [id number]#1.00CD:127 [facility] IntraOperative Documents [id number]#1.00CD:127 [facility] Preoperative Documentson Preoperative Documents [id number]#1.00CD:127 [facility] Preoperative Documents [id number]#1.00CD:127 [facility] Preoperative Documents [id number]#1.00CD:127 [facility] XR Abdomen 1 Viewon 10-09-19 XR [...] 101 mg/dL High 55 - 99 mg/dL [facility] Sub[facility] Comment on above: Result Comment: Jackelin DUNN POC Device SN [id number] Invalid Interpretation Code [facility] Subsection POC User ID [id number] Invalid Interpretation Code [facility] Subsection POC Username BEE NORRIS Invalid Interpretation Code [facility] Subsection Capillary Glucose POCon 09-25 Glucose [Mass/Vol] 101 mg/dL High 55-99 [facility] Comment on above: Result Comment: Jackelin DUNN Performed By: #### [id number] #### [facility] [address] [place] [address] Consent for Procedure/Surger yon 10-07-2022 Consent for Procedure/Surgery [id number]#1.00CD:127 Normal [facility] Consent for Treatmenton 09-25 Consent for Treatment [id number]#1.00CD:127 Normal [facility] H&P Updateon 10-07-2022 H&P Update [id number]#1.00CD:127 Normal [facility] Inpatient Patient Summaryon 04-13-2023 Inpatient Patient Summary [address] [address] [facility] Clinical Discharge Instructions PERSON INFORMATION Name: VICTORINO SMYTH [facility]#:[id number] PHYSICIANS Admitting Physician: Ni OLIVARES MD Attending Physician: Ni OLIVARES MD PCP: Erum OLIVEROS, Tray Discharge Diagnosis: Comment: PATIENT EDUCATION INFORMATION Instructions: Post Op Patient Instructions - FT (CUSTOM); Lithotripsy, Care After Medication Leaflets: Follow up: With: Address: When: Ni MARSHALL [address] [place] [address] AVE, [address], [address] [address] Business (1) Comments: We were [...] any other anesthesia procedures. Type Location Start [facility] Office Visit [facility] [place] 10/29/2022 8:45 AM 10/29/2022 9:00 AM Confirmed MEDICATION LIST New Medications [id number], [address], [place] [id number], [phone] acetaminophen-hydrocodone (acetaminophen-hydrocodone 325 mg-5 mg oral tablet) [...] VICTORINO SMYTH/Sex: 1940 Male Med Rec #: [id number] Physician: Ni OLIVARES MD Financial #: [id number] Pt. Type: A Room/Bed: Admit/Disch: 10/07/22 09:01:16 [...] SMYTH /Sex: 1940 Male Med Rec #: [id number] Physician: Ni OLIVARES MD Financial #: [id number] Pt. Type: A Room/Bed: [facility] Admit/Disch: 10/07/22 09:01:16 - 10/07/22 17:40:00 Institution: [...] SMYTH /Sex: 1940 Male Med Rec #: [id number] Physician: Ni OLIVARES MD Financial #: [id number] Pt. Type: A Room/Bed: [facility] Admit/Disch: 10/07/22 09:01:16 - Institution: Case Times [...] [facility] 10-07-2022 Monitor Record [id number]#1.00CD:127 Normal [facility] Monitor Record [id number]#1.00CD:127 [facility] Operative Reporton Operative Report Patient: SHERYL [...] placed in the supine position on the [employer] litho-Star lithotripsy table. Under C arm fluoroscopic imaging the stone was actually visualized. Therefore it was not indicated to proceed with a cystoscopy and retrograde pyelogram. Per protocol a total of 3000 shocks are given up to level 3.5. There was a pause at 200 shocks. There appears to be stone fragmentation. He tolerates it well. 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 Jose Alfaro to arrange for possible further follow-up regarding this. She was in agreement with the plan.. Estimated Blood Loss: 0 ml. Complications: None. Anesthesia type: General. [facility] Comment on above: Result Comment: Elec tronically Signed By: Ni OLIVAERS MD\.br\Date and Time Signed: 10/07/22 15:51 EDT Outpatient Surgery Discharge Instructionon 10-07-2022 Outpatient Surgery Discharge Instruction [address] [address] Patient Discharge Instructions PERSON INFORMATION [...] Follow up: With: Address: When: Ni OLIVARES [address] [place] [address], [address], [address] [address] Business (1) Comments: We were [...] other anesthesia procedures. Type Location Start Finish [facility] Office Visit [facility] [place] 10/29/2022 8:45 AM 10/29/2022 9:00 [...] you. Thank you for choosing [facility] HERE ARE THE MEDICATION CHANGES THAT OCCURRED DURING YOUR HOSPITAL STAY New Medications [id number], [address], [place] [id number], [phone] acetaminophen-hydrocodone (acetaminophen-hydrocodone 325 mg-5 mg oral tablet) [...] Lithotripsy, Care (more content not included)... Normal [facility] Patient Education - Texton 0 10-07-2022 [...] these instructions at home: Medicines ? Take unez-eii-gfaedun and prescription medicines only as told by [...] disposition: To PACU. Optimetrix number: Optimetrix number [id number]. Anesthetic utilized: General. Physical Examination Vital Signs [...] Problems Acute kidney failure / SNOMED CT 66081299 / Confirmed Anticoagulated / SNOMED CT 840523766 / Confirmed BPH associated with nocturia / SNOMED CT 6910656611 / Confirmed BPH with urinary obstruction / SNOMED CT 2283058095 / Confirmed Chronic obstructive pulmonary disease (COPD) / SNOMED CT 64413740 / Confirmed Coronary artery disease / SNOMED CT 10506023 / Confirmed DM (diabetes mellitus), type 2 / SNOMED CT 654882435 / Confirmed Elevated PSA / SNOMED CT 3943988819 / Confirmed Erectile dysfunction / SNOMED CT 5871600472 / Confirmed Flank pain / SNOMED CT 259788586 / Confirmed H/O: hypothyroidism / SNOMED CT 826493778 / Confirmed Hydronephrosis / SNOMED CT 90841971 / Confirmed Hydronephrosis with ureteral calculus / SNOMED CT 1969994111 / Confirmed Hyperlipidemia / SNOMED CT 65283871 / Confirmed Hyperplastic colon polyp / SNOMED CT 5066174622 / Confirmed Hypertension / SNOMED CT 7561416202 / Confirmed Kidney stone / SNOMED CT 512771919 / Confirmed Myocardial infarct / SNOMED CT 85735260 / Confirmed Occult blood in stools / SNOMED CT 94838898 / Confirmed Postprandial diarrhea / SNOMED CT 83220879 / Confirmed Prostate cancer / SNOMED CT 4840721535 / Confirmed Rheumatoid arthritis / SNOMED CT 283703480 / Confirmed Ureteral stone / SNOMED CT 67161865 / Confirmed Urinary retention / SNOMED CT 098032324 / Confirmed, Active Problems (24) Acute kidney [...] 16:52 EDT Coding Summary.on 09-22-2022 Coding Summary. CD:[id number] Ww+PGh lYWQ+JL1HESMvC24poGBxlA7zG 0NMTElOSywgQVBQTElOSyIgbmF uWR4tkOXoQNKi IC8+UN3hJXGyXjhleJWar9R1gH A2X93hjk3oIKwujLZ0NMEzYxEg ufzvj6karGp5YVshLdeiMhXd VQGlnC10IKF0vY17Wz36wBZzoQ Rwe7dwoRm8ZfBwLLXdTJP7wVij PJmvx0JyTUNuY26vnCTmr5G5 YXJvvQgauGByMnGzcFN1jG3eSU gupwzfj7goulhtAou3vm86bBVe f0V0mLU6U3LfebW6MNZopUIe PizrlPDOoM5amaoki4lhdoaxYp CaMRUqSQz1AKt9BTNhkPfnZzOh JC25BMV5NOHbqwWoG7KwLBXv xRubKmS7n8J3Ex4TO0YPAvnlN7 VNTUFSWTwvdGQ+CL80gd46L1Pl WbqgTuf9BARrUBO6aEN9zK5q IAOqTVmar0R2rMX3Q4BnvjNxkg 6qt2lwWYYlMYtmA88cgGXaz9G7 JZOwoBW3JSFcmYssWuMsmF39 Oyc+ZFHwoTdph9OaHhsqn4mpr6 mjvPz6IqfkFTGtxaCjcGdsVPQ1 l6WxKr3iDYGrsHC6vUQ6vK9t XeHtXzE2UGggP085PqHptDVzQp vfJ72mW2JzbII+IAAoHtw3POXm fIosXG0mM0VaNQQqpaqvrNPf eEvcME3hGHFlvgseMOHlkL6dLO WeX5p1GmIzAvL3LRepO4NkGMIw guigMe81kV8dAfBuErO9ZQkm G6PhikM5JCQcmKOlNSmcMHP6Q6 5og2T5WDSpKNHwMXW7gAB8xF9v bGlnbjogbGVmdDsgdmVydGlj BMlcDWegG008DZLcoLkkHxFkTU luZyBEYXRlOiAgMDMvMjkvMjAy MzwvdGQ+YZAoVGE1fErbBDUe oSYeSFdoJa7ntCohzGkrJF5sQG EuudikKQKirM9qXTIouAQqoJzh DQ0xJXQeymlrs217OyRqHGG4 TSJnrZGzU6DcoU1rIwWxNGEpWO EwU1DvdLHgRVqdQ645RAurFiY2 SNYxcaEoT0OmMOWuoUxrYrV4 k0Z1Ih2Xh6SaoxzqW3WmyDQjTv XoVuabNEe4D8AyNsxiuVT+PC90 HYXuXI46LVe5XBC9hOafDDxj CXFnG5IldO5wMoVzKUQaCPBcMp c+PHRhYmxlIHdpZHRoPScxMDAl MdXlhFszFJ5sWm9uPOKxCJDv aNwowLKgYrItw8xtFJTzJThbLM 5muRdyQ9WuyWU3PMZri0l8Ac90 U66oC2DawJO+NZBgbCM3dNK2 aQ1bTzTuGsM5KAvrD907OrZrvZ FdNfxiz6mvg4ummPn9CiN8VUHy pzWmjYumAQA1x1TwFb73A57u IHdpZHRoPSIxNSUiIHZhbGlnbj 7mnV3dSj9+TROphUC4sBY2eV1f BhVtKlY8DYltI509AfJaeCYc Nobgd6yrq1ascGg9NqQwNLUotv KrgQhdKRT3d0MyRg19T3JmlFyq c3AdMoi7xy07fQBew8U1hXG3 G7TcIIWmpyayuBZxzGsjID5cUK AfvmffYNVleT2nWZHkZ3x7BvRr EoA4MKvmP1QbzmB0NCMszNVe ZHExrEUYqZ6jshygi6bvezyhNv RyZQZeNWp5RCq9XKZjzKydTyTg OTV5MgA6VSQ9qBZmiE4oxYfc hmmakL4uMcn+RUU4lFHteBVZUM 1lOjwvdGQ+LGPbPHB4eGnfFVls GXMhpV0pDAOfW0a3GsQnSoF0 PAhbJ0SixgM7SFEemLIiYAJlcG JQoX3cwgidp3owocpvLeLvISLv NRc4BQt5MZWirUszAtGeMOA2 UcV6XBX0oZLvcC5pbJbxqpdifM 9wOyc+RrexbByfESJ9DEm9V8Wi Nnt7AGSedXktED8mdJKmQHsk Dk6ubJmduTpvBB9mZWCqfkvsr2 07IqBuq8pbTGVryMPeRWlvRNE4 A09fu9G8XTHwOFCoPYG8yOA7 vJ2xbMyekgghoLQivCqybgKwjY teFLmtVOypH380MUVojAjdLtVd XDs9X1YlAwj7CVRihGxkCZ7a xGFhKVhbTk8ucXrjyVcvNA2eMS Wcglbrw000MnWoc1lzSLWeoMRa OZdaXTB8I17tj8Z0OYJxHDYj UNX8fEU9uN0hfNmunyrdrLTqcT qffkKnoBpiOAryXFpcJ360REZo hQngWkJchXq2Z4NeKhp3NLUy bKerGP4ufOIgKAvyTn2inJpfcA xoLC3nJSMjjmhba968LqPkb2ey HUIkzSAaQXxpGAO8N33rb6Y6 NXSqGNXeMKA6mZK0kO9xmUuuqw ogbGVmdDsgdmVydGljYWwtYWxp W043XLNujKvuQsMteAiqgcNz AGqfKXw1V3CtRvizlEO+PC90YW KeVQ49nHVkjAOge3qqaDx5SgEq BPWlBMJ8zWqfWGuud9MzNTMl P43shQYtl9P2CNYqxSahsPMaAt MleOZ8vL4uFHmzyzggd6juwnze Xhxfz3kxqw74eA52Q52lUCww IQAvPQEnGVByMQXdlFzzyc9emI 9wIi8+KGSdwQR4vIB4bF4rOUWe RyE5DNusS792MpHzbFMiBwip t4rdt3cfcIl6FfJ5YWKuzjHkcD quDXC9w3OwBt74E98jSKplRUWr OVCkEWOyMOJhlOipne4bvZ3i Ii8+VFLqwTB9vBV6kQ6mFzKpGy K6XFtcP425QgNtgZCuIyhbE40b P8WyqWC+XNFtAqk3OBRucEnv LD7dcHWcKVesDl6bKLL4AtSmQn OcHEkbH3SkPFLsmvdrozldiXP6 VZDbWEKuvK39Xy5sgKkcFMKo aSKLtA0uphlor2uxnxtuKeZoQY FnMUj4PIk0GVUjrHrdDcIbOJA8 CfS0WQJ4kABugW1vyZibtcaa bH7rU3VoHUTmrlozCm14hJ3cBa HrTsU1LCrzPkd+DJPVIQ3MVhnw OwFZLbCVZOSQDB54QS78aCKf z8V2lBR0I1FlNEMkigusfbyplF Y3QEBmKRNsvP93xBEeGMlpPa9l x6Y6b073ZMXtLDAroB17Ok0l nCskRWYlmYNMdR5acftgo6rhft yxHzQhUQJjQSl2XSk0VPKyoZjd QyKaRJI1FiD8IFF2nPAgsC1m yDavgtvzwP9uIyx+MDIvMDQvMT c6HttjkYM+HZDbTWE2sSfyMSye WMIryU6wZCJhL2c1VePgFcU2 JTcpU8EfUKPjlhzvLq43nZ8kJc IxRuJ1MMvaG0KlrzY9EPMzxSZs NEhkLVA3Z10ef2T2GSNrPEEu IYO8hPA4yT0jdNtgbmdzcMTgiC tpcwZhqDjmGXmmVTojG431VCGu aXwuMixnTRvnJELjXL99JE39 bLVni2J2jHR1J9XpMUXogwasng qzbYT5DCNlNDIthZ55aLIvKGcv Iu2ko8M1u184RQIyZXOmoW36 An7jvDyaKXKnuDUGpF2bfzlvi2 nxpdgqEqRoHTFfKUg1VLr4GLBf hLxpOaPbWTB0UvU8JUJ6iJSr lD1wgKkgkmbeiR8vWfw+TWFsZT wvdGQ+LJBiGUO5bWmhOVrqIZRn mL8rMBGoP1i2HgOmZxO1OAgi Y4QdDKKnqveuJy87gS0mNbKeJq Z3YAqcD9QmidV4LTRzmLHyXFci SSU9D34ku9N4HWIaPOIkMGJ7 jNM9iX4reHgxcewibDMbhYfjvr GqwXctPAvdWBgnP562JTAjeSvk Pw93vMHxyRyfieP8Y4OlYydz dHI+XV98EZWsFJ63eRJtqDLcu4 xksEz0NqKcPVMsKUL4eUpgHKgn p1InIAQnW26ckNFtb5H3IKAg zXlqyCXoXbSjaGJ7nN7iIXxvxb yqq5zncwvnYfiat5dbcl96aB55 V47nSFcxFLXrAAPkOMHhHCTx wOhlcl8jjF8jOl7+YDNmpQJ4wF N7oM9aVhEgYiL0LYxnQ591MpBx vOYdGhjkk1lhk2anpGz6VjWl NQQynjZapDleQAN2d8AdZy68W6 9sIHdpZHRoPSIyMCUiIHZhbGln eg1pqW5dFc0+MM2it2ufcw16 tK35rIV+MISkFKJ8tLetCEwxND XrmO9gGUxoLgH7WMDxBvJagY76 zRTrNRjsNj4rfCifdKroBR1q SASjcrigr080JcIzf6wxJJMkuZ OyDYfyLDD4T26zr4V9TNDsEABg ROX1yII6cD8hqSwrfdhkbLMf vMmsaoVmtIosWCojBKykQ078ZJ DlmMecQrBpkCQwP5iqldXXDO3k OjwvdGQ+GMOzQDL4lYyvIIlg BSBdrG8oHZCxM1q4EfZxHdT8ZW rhR2CfgtQ7RCPerKMrIJTlcQLT bR4gkzcuc2rsthcuLkMnAMFx NSv9GEm1XTEvvQnvCtYfVJI0Kh J4WGW1lUOsyA0gxFksfsphnY4y Oyc+RklOOjwvdGQ+PHRkIHN0 qOvcXHvsHXKssX6bJUBiL4n2Ow NrCdS6EQndQ3ZlqdR4SVYabAEj SAZqkGKLdU8lnbtxp5ibqvlh SzSlTYOePHa9OUm9SVQllGcgEb KbXVU4CyZ3MYS1tXThlJ6qdKzn xrzqoS9kGjb+TVJOOjwvdGQ+ LJTpDAJ8bAduTDkgBCAbeJ6jHW EpF8b3KeTrCzF3NHgvN7JtzpT0 SMYyqSKrISChhJOIyR7sujwl v2klijvyWvTtTTEwYQm4FBo8LQ IwgUvrAuGfTBV5SlE9ULQ9gZZp mK9zgKxtodjysM6mCos+UGF5 NSF7VF37ZF10N5WbKsbykNFirX U+PHRhYmxlIHdpZHRoPScxMDAl JaQnaHpuMA9wMk9vYEYnQHWb bGxhcHNl (more content not included)... Normal [facility] Consultation Noteon 09-21-19 Consultation Note [id number]#1.00CD:127 Normal [facility] Lab Reportson 09-20-2022 Lab Reports [id number]#1.00CD:127 Normal [facility] RAD - Ultrasound Reporton RAD - Ultrasound Report [id number]#1.00CD:127 Normal [facility] Outside Recordson 09-16-2022 Outside Records [id number]#1.00CD:127 Normal [facility] Auto Diffon 09-14-2022 Basophils/100 WBC (Bld) 0.5 % Normal 0.0-2.0 [facility] Comment on above: Order Comment: Order Added by Discern Expert. Performed By: #### 2 [id number] #### [facility] [address] [place] [address] 89389 Basophils/Leukocytes Auto (Bld) [Pure # fraction] 0.0 E9/L Normal 0.0-0.2 [facility] Comment on above: Order Comment: Order Added by Discern Expert. Performed By: #### 2 [id number], [id number] #### [facility] [address] [place] [address] 67347 Eosinophils/100 WBC (Bld) 3.2 % Normal 0.0-8.0 [facility] Comment on above: Order Comment: Order Added by Discern Expert. Performed By: #### 2 [id number], [id number], [id number] #### [facility] [address] [place] [address] 98758 Eosinophils/Leukocytes Auto (Bld) [Pure # fraction] 0.2 E9/L Normal 0.0-0.5 [facility] Comment on above: Order Comment: Order Added by Discern Expert. Performed By: #### 2 [id number], [id number], [id number] #### [facility] [address] [place] [address] 36515 Lymphocytes/100 WBC (Bld) 17.6 % Normal 14.0-50.0 [facility] Comment on above: Order Comment: Order Added by Discern Expert. Performed By: #### 2 [id number], [id number], [id number], [id number], [id number] #### [facility] [address] [place] [address] 48994 Lymphocytes/Leukocytes Auto (Bld) [Pure # fraction] 0.9 E9/L Low 1.0-4.0 [facility] Comment on above: Order Comment: Order Added by Discern Expert. Performed By: #### 2 [id number], [id number], [id number], [id number], [id number] #### [facility] [address] [place] [address] Monocytes/100 WBC (Bld) 10.2 % Normal 4.0-14.0 [facility] Comment on above: Order Comment: Order Added by Discern Expert. Performed By: #### 2 264870, 17357899, 8787868, 15513789, 7862975 #### [facility] [address] [place] [address] Monocytes/Leukocytes Auto (Bld) [Pure # fraction] 0.5 E9/L Normal 0.2-1.0 [facility] Comment on above: Order Comment: Order Added by Discern Expert. Performed By: #### 2 376949, 49262957, 3918137, 14185165, 2087121 #### [facility] [address] [place] [address] Neutrophils/100 WBC (Bld) 68.5 % Normal 36.0-75.0 [facility] Comment on above: Order Comment: Order Added by Discern Expert. Performed By: #### 2 600247, 57093127, 7838193, 31573517, 2641257 #### [facility] [address] [place] [address] Neutrophils/Leukocytes Auto (Bld) [Pure # fraction] 3.6 E9/L Normal 2.0-7.5 [facility] Comment on above: Order Comment: Order Added by Discern Expert. Performed By: #### 2 377357, 07854591, 0247234, 83181069, 8645417 #### [facility] [address] [place] [address] BMPon 09-14-2022 Anion gap [Moles/Vol] 10 mmol/L Normal 6-16 [facility] Comment on above: Performed By: #### 2 218151, 96363094, 0687659, 44675932, 4818302 #### [facility] [address] [place] [address] Calcium [Mass/Vol] 8.6 mg/dL Low 8.9-11.1 [facility] Comment on above: Performed By: #### 2 576793, 35564458, 2126498, 51068128, 0098599 #### [facility] [address] [place] [address] Chloride [Moles/Vol] 108 mmol/L Normal 101-111 [facility] Comment on above: Performed By: #### 2 687402, 85736420, 1464659, 86359504, 1451034 #### [facility] [address] [place] [address] CO2 [Moles/Vol] 23 mmol/L Normal 21-31 [facility] Comment on above: Performed By: #### 2 668218, 27581045, 5398688, 98872319, 6290037 #### [facility] [address] [place] [address] Creatinine [Mass/Vol] 2.1 mg/dL High 0.5-1.3 [facility] Comment on above: Performed By: #### 2 881735, 74388088, 7132365, 09587655, 2077952 #### [facility] [address] [place] [address] Glucose [Mass/Vol] 89 mg/dL Normal 55-199 [facility] Comment on above: Result Comment: If t his glucose result represents a fasting glucose, interpretation should refer to the following reference range: 55-99 mg/dL Performed By: #### 2 121766, 02183219, 3391467, 16317244, 8347471 #### [facility] [address] [place] [address] Potassium [Moles/Vol] 4.1 mmol/L Normal 3.5-5.3 [facility] Comment on above: Performed By: #### 2 391238, 18326625, 5992735, 22256588, 4977419 #### [facility] [address] [place] [address] Sodium [Moles/Vol] 137 mmol/L Normal 135-145 [facility] Comment on above: Performed By: #### 2 652187, 28413045, 7768273, 71084682, 2520599 #### [facility] [address] [place] [address] Urea nitrogen [Mass/Vol] 26 mg/dL High 5-21 [facility] Comment on above: Performed By: #### 2 406381, 32892268, 8797876, 79524825, 6522946 #### [facility] [address] [place] [id number] Urea nitrogen/Creatinine [Mass ratio] 12 No Units Normal 10-20 [facility] Comment on above: Performed By: #### 2 140824, 47322427, 8796477, 86711329, 0622529 #### [facility] [address] [place] [address] CBC w/ Auto Diffon 3 Erythrocyte distribution width (RBC) [Ratio] 14.0 % Normal 10.9-14.2 [facility] Comment on above: Performed By: #### 2 660501, 73108270, 7390089, 50130958, 0124781 #### [facility] [address] [place] [address] Hematocrit (Bld) [Volume fraction] 31.6 % Low 37.7-49.0 [facility] Comment on above: Performed By: #### 2 870539, 13740597, 8900909, 54242851, 9166428 #### [facility] [address] [place] [address] Hemoglobin (Bld) [Mass/Vol] 10.9 g/dL Low 13.5-17.5 [facility] Comment on above: Performed By: #### 2 204532, 26026071, 0162089, 40538173, 7663473 #### [facility] [address] [place] [address] MCH (RBC) [Entitic mass] 33.0 pg Normal 27.0-34.0 [facility] Comment on above: Performed By: #### 2 209756, 02240059, 1683619, 96067181, 2379827 #### [facility] [address] [place] [address] MCHC (RBC) [Mass/Vol] 34.5 g/dL Normal 31.4-36.0 [facility] Comment on above: Performed By: #### 2 278966, 26812608, 1931722, 07396212, 3845439 #### [facility] [address] [place] [address] MCV (RBC) [Entitic vol] 95.8 fL Normal 80.0-100.0 [facility] Comment on above: Performed By: #### 2 298069, 22119074, 5372876, 88139090, 7475032 #### [facility] [address] [place], [place] [address] Platelet mean volume (Bld) [Entitic vol] 8.9 fL Normal 6.4-10.8 [facility] Comment on above: Performed By: #### 2 743117, 77914560, 2396613, 45221336, 7030547 #### [facility] [address] [place] [address] Platelets (Bld) [#/Vol] 151.0 E9/L Normal 150.0-500. 0 [facility] Comment on above: Performed By: #### 2 661290, 14495360, 7485386, 56683912, 8362650 #### [facility] [address] [place] [address] RBC (Bld) [#/Vol] 3.3 E12/L Low 4.3-5.9 [facility] Comment on above: Performed By: #### 2 443726, 40423869, 8214374, 10659532, 1371728 #### [facility] [address] [place] [address] WBC corrected for nucl RBC Auto (Bld) [#/Vol] 5.3 E9/L Normal 4.0-11.0 [facility] Comment on above: Performed By: #### 2 948033, 00247464, 4029755, 84148220, 7909152 #### [facility] [address] [place] [address] Consent for Treatmenton 08-26 Consent for Treatment [id number]:127 Normal [facility] PT & PTTon [...] the same coagulation reagent and instrumentation [place] [facility] Currently there are no coagulation studies available worldwide for children to 14 days, and no normal ranges. Heparin therapeutic range (represented by Anti-Factor Xa activity of 0.2 - 0.4 U/mL) corresponds to PTT of 56.6 - 109.0 sec. Performed By: #### 2 632482, 45845784, 8690503, 74931452, 2590882 #### [facility] [address] [place] [address] INR Coag (PPP) [Relative time] 1.0 {INR} Invalid Interpretation Code [facility] Comment on above: Result Comment: INR results are specifically intended to assess patients stabilized on long-term Anticoagulation therapy suggested INR?s ?Less Intensive Anticoagulation? 2.0 ? 3.0 Conventional Range 3.0 ? 4.5 Performed By: #### 2 159029, 62192113, 5475922, 95712940, 7553074 #### [facility] [address] [place] [address] PT Coag (PPP) [Time] 11.7 second(s) Normal [...] the same coagulation reagent and instrumentation as [facility]. Currently there are no coagulation studies available worldwide for children to 14 days, and no normal ranges. Performed By: #### 2 918945, 64003761, 2494060, 12786854, 7765504 #### [facility] [address] [place] [address] PTH INTACTon 09-14-2022 PTH, Intact 51 pg/mL Normal 15-65 [facility] Comment on above: Performed By: #### T SH, LIPID, T4, FT3, CMP #### [facility] [address] [place], [place] [address] Dr. Alicia Patel UA With Cult Reflexon 2022 Bacteria LM Ql (Urine sed) TRACE Normal Trace [facility] Comment on above: Performed By: #### 2 312294, 35745106, 8842061, 71252898, 2103100 #### [facility] [address] [place] [address] Bilirubin Ql (U) Negative Normal Negative [facility] Comment on above: Performed By: #### 2 937517, 02395375, 8586484, 54398962, 2242633 #### [facility] [address] [place] [address] Clarity (U) CLOUDY Abnormal Clear [facility] Comment on above: Performed By: #### 2 035135, 14245547, 6908719, 25510675, 6873673 #### [facility] [address] [place] [address] Color (U) YELLOW Normal Yellow [facility] Comment on above: Performed By: #### 2 800803, 68858047, 1067197, 31239731, 5863009 #### [facility] [address] [place] [address] Epithelial cells.squamous LM.HPF (Urine sed) [#/Area] 0-2 Normal 0-2 [facility] Comment on above: Performed By: #### 2 636070, 79243015, 1130398, 20675784, 7234117 #### [facility] [address] [place] [address] Glucose Test strip (U) [Mass/Vol] Negative Normal Negative [facility] Comment on above: Performed By: #### 2 221905, 18715712, 1193263, 55593844, 7200597 #### [facility] [address] [place] [address] Hemoglobin Ql (U) 3+ Abnormal Negative [facility] Comment on above: Performed By: #### 2 485938, 89298823, 8932743, 87154926, 7055753 #### [facility] [address] [place] [address] Ketones (U) [Mass/Vol] Negative Normal Negative [facility] Comment on above: Performed By: #### 2 923838, 90258558, 9104887, 47531732, 0268260 #### [facility] [address] [place] [address] Evans.plasma/Evans .RBC (Bld) [Mass ratio] >30 Abnormal 0-3 [facility] Comment on above: Performed By: #### 2 126664, 84271916, 8894585, 48672174, 1509954 #### [facility] [address] [place] [address] Mucus Ql (Urine sed) TRACE Normal [facility] Comment on above: Performed By: #### 2 137625, 20537174, 1864546, 93956722, 7972671 #### [facility] [address] [place] [address] Nitrite Ql (U) Negative Normal Negative [facility] Comment on above: Performed By: #### 2 446494, 91612775, 0846420, 99198649, 0175778 #### [facility] [address] [place] [address] pH (U) 6.0 [pH] Invalid Interpretation Code 5.0-9.0 [facility] Comment on above: Performed By: #### 2 875843, 29235862, 7809295, 74187672, 7027721 #### [facility] [address] [place] [address] Protein (U) [Mass/Vol] 2+ Abnormal Negative [facility] Comment on above: Performed By: #### 2 717797, 51270762, 0288585, 57144280, 2870356 #### [facility] [address] [place] [address] Specific gravity (U) [Rel density] 1.025 Invalid Interpretation Code 1.005-1.03 0 [facility] Comment on above: Performed By: #### 2 833706, 10736729, 6427785, 28464921, 9423773 #### [facility] [address] [place] [address] Type of Urine collection method Clean Catch Normal [facility] Comment on above: Performed By: #### 2 290268, 67200859, 7974931, 83962124, 1514513 #### [facility] [address] [place] [address] Urobilinogen Qn (U) 0.2 {Wil'U}/dL Normal 0.0-1.0 [facility] Comment on above: Performed By: #### 2 838565, 14985364, 2064278, 32853720, 3476099 #### [facility] [address] [place] [address] WBC Auto Ql (U) TRACE Abnormal Negative [facility] Comment on above: Performed By: #### 2 765262, 92027131, 6410758, 24015565, 1841809 #### [facility] [address] [place] [address] WBC casts LM.LPF (Urine sed) [#/Area] 0-3 Normal [facility] Comment on above: Performed By: #### 2 066126, 90081398, 8300321, 30606041, 3314285 #### [facility] [address] [place] [address] WBC LM.HPF (Urine sed) [#/Area] 0-5 Normal 0-5 [facility] Comment on above: Performed By: #### 2 583877, 22217301, 7328776, 56517596, 8735215 #### [facility] [address] [place] [address] XR Chest 2 Viewson 3 XR Chest [...] race adjusted. AA=. Performed By: #### 2 419420, 56247274, 0594321, 37887895, 8173263 #### [facility] [address] [place] [address] GFR/1.73 sq M.predicted among non-blacks MDRD (S/P/Bld) [Vol rate/Area] 31 mL/min/1.73 m2 Low >=59 [facility] Comment on above: Order Comment: Order added by Discern Expert. Result Comment: Behavioral Interventionist christa kidney disease could be indicated at eGFR's of less than 60 mL/min/1.73m2. Kidney failure is indicated at less than 15 mL/min/1.73m2. Performed By: #### 2 114491, 96766972, 4255043, 42081045, 6562838 #### [facility] [address] [place] [address] HEMOGRAM AND PLATELon 2022 Hematocrit (Bld) [Volume fraction] 32.9 % Critically low 42.0-54.0 [facility] Comment on above: Performed By: #### T SH, LIPID, T4, FT3, CMP #### [facility] [address] [place] [address] [address] Alicia Patel Hemoglobin (Bld) [Mass/Vol] 10.9 g/dL Critically low 14.0-18.0 [facility] Comment on above: Performed By: #### T SH, LIPID, T4, FT3, CMP #### [facility] [address] [place] [address] Dr. Alicia Patel MCH (RBC) [Entitic mass] 32.6 pg Normal 25.9-34.0 [facility] Comment on above: Performed By: #### T SH, LIPID, T4, FT3, CMP #### [facility] [address] [place] [address] Dr. Alicia Patel MCHC (RBC) [Mass/Vol] 33.1 g/dL Normal 29.9-35.2 [facility] Comment on above: Performed By: #### T SH, LIPID, T4, FT3, CMP #### [facility] [address] [place] [address] Dr. Alicia Patel MCV (RBC) [Entitic vol] 98.5 fL Critically high 80.0-94.0 [facility] Comment on above: Performed By: #### T SH, LIPID, T4, FT3, CMP #### [facility] [address] [place] [address] Dr. Alicia Patel PLT 145 103/ul Critically low 150-450 [facility] Comment on above: Performed By: #### T SH, LIPID, T4, FT3, CMP #### [facility] [address] [place] [address] Dr. Alicia Patel RBC 3.34 106/ul Critically low 4.70-6.10 [facility] Comment on above: Performed By: #### T SH, LIPID, T4, FT3, CMP #### [facility] [address] [place] [address] Dr. Alicia Patel WBC 5.1 103/ul Normal 4.0-11.0 [facility] Comment on above: Performed By: #### T SH, LIPID, T4, FT3, CMP #### [facility] [address] [place] [address] Dr. Alicia Patel MAGNESIUMon 09-13-2022 Magnesium [Mass/Vol] 1.5 mg/dL Critically low 1.8-2.4 [facility] Comment on above: Performed By: #### T SH, LIPID, T4, FT3, CMP #### [facility] [address] [place] [address] [address] Alicia Patel RENAL FUNCTION PANELon 09-13 Albumin [Mass/Vol] 3.5 g/dL Normal 3.4-5.0 [facility] Comment on above: Performed By: #### U RTPCR #### [facility] [address] [place] [address] [address] Alicia Patel Calcium [Mass/Vol] 8.4 mg/dL Critically low 8.5-10.1 [facility] Comment on above: Performed By: #### U RTPCR #### [facility] [address] [place] [address] Dr. Alicia Patel Chloride [Moles/Vol] 107 mmol/L Normal 98-107 [facility] Comment on above: Performed By: #### U RTPCR #### [facility] [address] [place] [address] Dr. Alicia Patel CO2 [Moles/Vol] 25.1 mmol/L Normal 21.0-32.0 [facility] Comment on above: Performed By: #### U RTPCR #### [facility] [address] [place] [address] Dr. Alicia Patel Creatinine [Mass/Vol] 1.96 mg/dL Critically high 0.70-1.30 [facility] Comment on above: Performed By: #### U RTPCR #### [facility] [address] [place] [address] Dr. Alicia Patel EGFR-AF BULGARIAN 40 mL/min/1.73m2 Critically low >=60 [facility] Comment on above: Performed By: #### U RTPCR #### [facility] [address] [place] [address] [address] Alicia Patel EGFR-NON AF BULGARIAN 33 mL/min/1.73m2 Critically low >=60 [facility] Comment on above: Performed By: #### U RTPCR #### [facility] [address] [place] [address] [address] Alicia Patel Glucose [Mass/Vol] 151 mg/dL Critically high 74-106 [facility] Comment on above: Performed By: #### U RTPCR #### [facility] [address] [place] [address] [address] Alicia Patel Phosphate [Mass/Vol] 3.5 mg/dL Normal 2.6-4.7 [facility] Comment on above: Performed By: #### U RTPCR #### [facility] [address] [place] [address] Dr. Alicia Patel Potassium [Moles/Vol] 4.3 mmol/L Normal 3.5-5.1 [facility] Comment on above: Performed By: #### U RTPCR #### [facility] [address] [place] [address] Dr. Alicia Patel Sodium [Moles/Vol] 142 mmol/L Normal 136-145 [facility] Comment on above: Performed By: #### U RTPCR #### [facility] [address] [place] [address] Dr. Alicia Patel Urea nitrogen [Mass/Vol] 23.0 mg/dL Critically high 7.0-18.0 [facility] Comment on above: Performed By: #### U RTPCR #### [facility] [address] [place] [address] Dr. Alicia Patel UA RANDOM W/MICROSCOPICon BACTERIA TRACE Abnormal NONE SEEN [facility] Comment on above: Performed By: #### T SH, LIPID, T4, FT3, CMP #### [facility] [address] [place] [address] Dr. Alicia Patel Bilirubin Ql (U) Negative Normal NEGATIVE [facility] Comment on above: Performed By: #### T SH, LIPID, T4, FT3, CMP #### [facility] [address] [place] [address] Dr. Alicia Patel CAST NONE SEEN Normal NONE SEEN [facility] Comment on above: Performed By: #### T SH, LIPID, T4, FT3, CMP #### [facility] [address] [place] [address] [address] Alicia Patel Clarity (U) CLEAR Normal CLEAR [facility] Comment on above: Performed By: #### T SH, LIPID, T4, FT3, CMP #### [facility] [address] [place] [address] [address] Alicia Patel Color (U) LT. YELLOW Normal YELLOW [facility] Comment on above: Performed By: #### T SH, LIPID, T4, FT3, CMP #### [facility] [address] [place] [address] [address] Alicia Patel Crystals LM Nom (Urine sed) NONE SEEN Normal NONE SEEN [facility] Comment on above: Performed By: #### T SH, LIPID, T4, FT3, CMP #### [facility] [address] [place] [address] Dr. Alicia Patel Epithelial cells LM Ql (Urine sed) RARE Normal NONE SEEN /RARE [facility] Comment on above: Performed By: #### T SH, LIPID, T4, FT3, CMP #### [facility] [address] [place] [address] Dr. Alicia Patel Glucose Ql (U) 500 mg/dl Abnormal NEGATIVE [facility] Comment on above: Performed By: #### T SH, LIPID, T4, FT3, CMP #### [facility] [address] [place] [address] Dr. Alicia Patel Hemoglobin Ql (U) LARGE Abnormal NEGATIVE [facility] Comment on above: Performed By: #### T SH, LIPID, T4, FT3, CMP #### [facility] [address] [place] [address] [address] Alicia Patel Ketones Ql (U) Negative Normal NEGATIVE [facility] Comment on above: Performed By: #### T SH, LIPID, T4, FT3, CMP #### [facility] [address] [place] [address] [address] Alicia Patel LEUKOCYTES Negative Normal NEGATIVE [facility] Comment on above: Performed By: #### T SH, LIPID, T4, FT3, CMP #### [facility] [address] [place] [address] Dr. Alicia Patel MUCOUS NONE SEEN Normal NONE SEEN [facility] Comment on above: Performed By: #### T SH, LIPID, T4, FT3, CMP #### [facility] [address] [place] [address] Dr. Alicia Patel Nitrite Ql (U) Negative Normal NEGATIVE [facility] Comment on above: Performed By: #### T SH, LIPID, T4, FT3, CMP #### [facility] [address] [place] [address] Dr. Alicia Patel pH (U) 6.0 [pH] Normal 5-9 [facility] Comment on above: Performed By: #### T SH, LIPID, T4, FT3, CMP #### [facility] [address] [place] [address] Dr. Alicia Patel RBC 20-50 Abnormal 0-2 [facility] Comment on above: Performed By: #### T SH, LIPID, T4, FT3, CMP #### [facility] [address] [place] [address] Dr. Alicia Patel SPEC GRAVITY 1.020 Normal 1.005-<=1. 025 [facility] Comment on above: Performed By: #### T SH, LIPID, T4, FT3, CMP #### [facility] [address] [place] [address] Dr. Alicia Patel UA PROTEIN 100 mg/dl Abnormal NEGATIVE/ TRACE [facility] Comment on above: Performed By: #### T SH, LIPID, T4, FT3, CMP #### [facility] [address] [place] [address] Dr. Alicia Patel Urobilinogen Qn (U) 0.2 {Wil'U}/dL Normal 0.2 - 1. 0 [facility] Comment on above: Performed By: #### T SH, LIPID, T4, FT3, CMP #### [facility] [address] [place] [address] Dr. Alicia Patel WBC 0-2 Abnormal NONE SEEN [facility] Comment on above: Performed By: #### T SH, LIPID, T4, FT3, CMP #### [facility] [address] [place] [address] Dr. Alicia Patel URIC ACID SERUMon 09-13-2022 Urate [Mass/Vol] 5.8 mg/dL Normal 3.5-7.2 [facility] Comment on above: Performed By: #### U RTPCR #### [facility] [address] [place] [address] Dr. Alicia Patel URINE T PROTEIN CREAT RATIOo n 09-13-2022 Protein (U) [Mass/Vol] 122.4 mg/dL Critically high <=12.0 [facility] Comment on above: Performed By: #### U RTPCR #### [facility] [address] [place] [address] Dr. Alicia Patel UR PROT CREAT RAT 1.38 Normal [facility] Comment on above: Performed By: #### U RTPCR #### [facility] [address] [place] [address] Dr. Alicia Patel URINE CREAT 88.74 mg/dL Normal 20.00-300. 00 [facility] Comment on above: Performed By: #### U RTPCR #### [facility] [address] [place] [address] Dr. Alicia Patel VITAMIN D 25 OHon 09-13-2022 VIT D 25-OH 58.0 ng/mL Normal [facility] Comment on above: Performed By: #### T SH, LIPID, T4, FT3, CMP #### [facility] [address] [place] [address] Dr. Alicia Patel VIT D RANGES SEE BELOW Normal [facility] Comment on above: Result Comment: <20 ng/mL Vit D deficient 20 - <30 ng/mL Vit D insufficient 30 - 100 ng/mL Vit D sufficient >100 ng/mL Potential Toxicity Performed By: #### T SH, LIPID, T4, FT3, CMP #### [facility] [address] [place] [address] Dr. Alicia Patel Pre-Certification Formon Pre-Certification Form [id number]#[id number]:127 Normal [facility] RAD - Ultrasound Reporton RAD - Ultrasound Report [id number]#1.00CD:127 Normal [facility] Screenson 09-07-2022 Screens [id number]#1.00CD:12 7 Normal [facility] Patient Educationon 09-07-19 Patient Education Urology [...] these instructions at home: Medicines ? Take evrv-tqd-nmehyeg and prescription medicines only as told by [...] 11/29/2008 Document Revised: 10/30/2019 Document Reviewed: 10/30/2019 [employer] Patient Education ? [address] [employer] [facility] Urology Office/Clinic Noteon 09-06-2022 Urology Office/Clinic Note Chief Complaint Pt is here for [facility] [facility] ER f/u HPI Staff Victorino is a 82 y.o. male here for hospital follow up. Pt was seen at [facility]. Previous Dx: acute kidney failure, BPH w/ urinary obstruction, elevated PSA, ED, flank pain, hydronephrosis, kidney stone, prostate cancer, ureteral stone, urinary retention. S/P cysto/stent removal done on 04/15/20, cysto/bilateral dilation ureteral/stent done on 03/11/20, TURP done on 08/01/19, biopsy of prostate done on 07/04/19, cysto/RG/laser done on 06/27/19. Pt presented to [facility] on 08/11/22 for shortness of breath. Pt presented to [facility] later that evening [...] the prior CT scan performed at the [facility]. The options include both nephroscopic/ureteroscopic approach [...] TYLER MONSIVAIS Date: 2022-09-01 09:33 Normal [facility] PSA, FREE AND TOTAL RATIOon 08-25-2022 % Free PSA 13.7 % Normal [facility] Comment on above: Result Comment: The [...] T SH, LIPID, T4, FT3, CMP #### [facility] [address] [place] [address] Dr. Alicia Patel Prostate specific Ag [Mass/Vol] 6.2 ng/mL Critically high 0.0-4.0 [facility] Comment on above: Result Comment: Dwight JUAREZ methodology. . According to the [employer] [employer], Serum PSA should decrease and [...] T SH, LIPID, T4, FT3, CMP #### [facility] [address] [place] [address] Dr. Alicia Patel PSA, Free 0.85 ng/mL Normal N/A [facility] Comment on above: Result Comment: Dwight linares ECLIA methodology. Performed By: #### T SH, LIPID, T4, FT3, CMP #### [facility] [address] [place] [address] Dr. Alicia Patel OCC BLD IMMUNO SCREENon 07-29 OCCULT BLOOD Negative Normal NEGATIVE [facility] Comment on above: Performed By: #### T SH, LIPID, T4, FT3, CMP #### [facility] [address] [place] [address] Dr. Alicia Patel CBC AUTO DIFFon 08-21-2022 BASO # 0.0 103/ul Normal 0.0-0.1 [facility] Comment on above: Performed By: #### U RTPCR #### [facility] [address] [place] [address] Dr. Alicia Patel Basophils/100 WBC (Bld) 0.3 % Normal 0.2-2.0 [facility] Comment on above: Performed By: #### U RTPCR #### [facility] [address] [place] [address] Dr. Alicia Patel EO # 0.2 103/ul Normal 0.0-0.7 [facility] Comment on above: Performed By: #### U RTPCR #### [facility] [address] [place] [address] Dr. Alicia Patel Eosinophils/100 WBC (Bld) 3.2 % Normal 0.9-7.0 [facility] Comment on above: Performed By: #### U RTPCR #### [facility] [address] [place] [address] Dr. Alicia Patel Erythrocyte distribution width (RBC) [Ratio] 12.9 % Normal 11.0-15.0 [facility] Comment on above: Performed By: #### U RTPCR #### [facility] [address] [place] [address] Dr. Alicia Patel Hematocrit (Bld) [Volume fraction] 35.4 % Critically low 42.0-54.0 [facility] Comment on above: Performed By: #### U RTPCR #### [facility] [address] [place] [address] Dr. Alicia Patel Hemoglobin (Bld) [Mass/Vol] 11.7 g/dL Critically low 14.0-18.0 [facility] Comment on above: Performed By: #### U RTPCR #### [facility] [address] [place] [address] Dr. Alicia Patel IG # 0.08 10e3/ul Critically high 0.00-0.03 [facility] Comment on above: Performed By: #### U RTPCR #### [facility] [address] [place] [address] Dr. Alicia Patel IG % 1.2 % Critically high 0.0-0.5 [facility] Comment on above: Performed By: #### U RTPCR #### [facility] [address] [place] [address] Dr. Alicia Patel LYMPH # 1.1 103/ul Critically low 1.2-3.8 [facility] Comment on above: Performed By: #### U RTPCR #### [facility] [address] [place] [address] Dr. Alicia Patel Lymphocytes/100 WBC (Bld) 16.6 % Critically low 20.5-60.0 [facility] Comment on above: Performed By: #### U RTPCR #### [facility] [address] [place] [address] Dr. Alicia Patel MANUAL DIFF REQ NO Normal [facility] Comment on above: Performed By: #### U RTPCR #### [facility] [address] [place] [address] Dr. Alicia Patel MCH (RBC) [Entitic mass] 32.4 pg Normal 25.9-34.0 [facility] Comment on above: Performed By: #### U RTPCR #### [facility] [address] [place] [address] Dr. Alicia Patel MCHC (RBC) [Mass/Vol] 33.1 g/dL Normal 29.9-35.2 [facility] Comment on above: Performed By: #### U RTPCR #### [facility] [address] [place] [address] Dr. Alicia Patel MCV (RBC) [Entitic vol] 98.1 fL Critically high 80.0-94.0 [facility] Comment on above: Performed By: #### U RTPCR #### [facility] [address] [place] [address] Dr. Alicia Patel MONO # 0.6 103/ul Normal 0.3-0.8 [facility] Comment on above: Performed By: #### U RTPCR #### [facility] [address] [place] [address] Dr. Alicia Patel Monocytes/100 WBC (Bld) 8.8 % Normal 1.7-12.0 [facility] Comment on above: Performed By: #### U RTPCR #### [facility] [address] [place] [address] Dr. Alicia Patel NEUT # 4.8 103/ul Normal 1.4-6.5 [facility] Comment on above: Performed By: #### U RTPCR #### [facility] [address] [place] [address] Dr. Alicia Patel Neutrophils/100 WBC (Bld) 69.9 % Normal 43.0-75.0 [facility] Comment on above: Performed By: #### U RTPCR #### [facility] [address] [place] [address] Dr. Alicia Patel Platelet mean volume (Bld) [Entitic vol] 10.4 fL Normal 9.5-13.5 [facility] Comment on above: Performed By: #### U RTPCR #### [facility] [address] [place] [address] Dr. Alicia Patel PLT 200 103/ul Normal 150-450 [facility] Comment on above: Performed By: #### U RTPCR #### [facility] [address] [place] [address] Dr. Alicia Patel RBC 3.61 106/ul Critically low 4.70-6.10 [facility] Comment on above: Performed By: #### U RTPCR #### [facility] [address] [address] [address] Alicia Patel WBC 6.8 103/ul Normal 4.0-11.0 [facility] Comment on above: Performed By: #### U RTPCR #### [facility] [address] [place] [address] Dr. Alicia Patel FREE T3on 08-21-2022 FREE T3 1.91 pg/mlL Critically low 2.18-3.98 [facility] Comment on above: Performed By: #### T SH, LIPID, T4, FT3, CMP #### [facility] [address] [place] [address] Dr. Alicia Patel GLYCOHEMOGLOBIN A1Con 2022 ADA RECOMMENDATION SEE BELOW Normal [facility] Comment on above: Result Comment: ADA RECOMMENDED LIMIT 4.0 - 6.0 ADA THERAPEUTIC TARGET < 7.0 ACTION SUGGESTED > 7.0 Performed By: #### T SH, LIPID, T4, FT3, CMP #### [facility] [address] [place] [address] Dr. Alicia Patel Glucose [Mass/Vol] 194 mg/dL Normal [facility] Comment on above: Performed By: #### T SH, LIPID, T4, FT3, CMP #### [facility] [address] [place] [address] Dr. Alicia Patel HbA1c (Bld) [Mass fraction] 8.4 % Critically high 4.5-6.2 [facility] Comment on above: Performed By: #### T SH, LIPID, T4, FT3, CMP #### [facility] [address] [place] [address] Dr. Alicia Patel LIPID PROFILEon 08-21-2022 CHOL-HDL RATIO NORM SEE BELOW Normal [facility] Comment on above: Result Comment: 3.3 - 4.4 LOW RISK 4.4 - 7.1 AVERAGE RISK 7.1 - 11.0 MODERATE RISK >11.0 HIGH RISK Performed By: #### T SH, LIPID, T4, FT3, CMP #### [facility] [address] [place] [address] Dr. Alicia Patel Cholesterol [Mass/Vol] 120 mg/dL Normal <=200 [facility] Comment on above: Performed By: #### T SH, LIPID, T4, FT3, CMP #### [facility] [address] [place] [address] Dr. Alicia Patel Cholesterol in HDL [Mass/Vol] 30 mg/dL Critically low 40-60 [facility] Comment on above: Performed By: #### T SH, LIPID, T4, FT3, CMP #### [facility] [address] [place] [address] Dr. Alicia Patel Cholesterol in LDL [Mass/Vol] 59.8 mg/dL Normal [facility] Comment on above: Performed By: #### T SH, LIPID, T4, FT3, CMP #### [facility] [address] [place] [address] Dr. Alicia Patel Cholesterol.total/Chol esterol in HDL [Mass ratio] 4.0 {ratio} Normal [facility] Comment on above: Performed By: #### T SH, LIPID, T4, FT3, CMP #### [facility] [address] [place] [address] Dr. Alicia Patel HDL NORMAL > or = 60 mg/dl - LO W CARDIOVASCULAR RISK <40 mg/dl - HIGH CARDIOVASCULAR RISK Normal [facility] Comment on above: Performed By: #### T SH, LIPID, T4, FT3, CMP #### [facility] [address] [place] [address] Dr. Alicia Patel LDL CALC NORMAL SEE BELOW Normal [facility] Comment on above: Result Comment: <100 mg/dl OPTIMAL 100 - 129 mg/dl NEAR OR ABOVE OPTIMAL 130 - 159 mg/dl BORDERLINE HIGH 160 - 189 mg/dl HIGH >190 mg/dl VERY HIGH Performed By: #### T SH, LIPID, T4, FT3, CMP #### [facility] [address] [address] [address] Alicia Patel Triglyceride [Mass/Vol] 151 mg/dL Critically high <=150 [facility] Comment on above: Performed By: #### T SH, LIPID, T4, FT3, CMP #### [facility] [address] [address] [address] Alicia Patel VLDL CALC 30.2 mg/dL Normal [facility] Comment on above: Performed By: #### T SH, LIPID, T4, FT3, CMP #### [facility] [address] [address] [address] Alicia Patel PROF 14(COMP METB)on 023 Albumin [Mass/Vol] 3.3 g/dL Critically low 3.4-5.0 [facility] Comment on above: Performed By: #### T SH, LIPID, T4, FT3, CMP #### [facility] [address] [place] [address] Dr. Alicia Patel Albumin/Globulin [Mass ratio] 0.9 {ratio} Normal [facility] Comment on above: Performed By: #### T SH, LIPID, T4, FT3, CMP #### [facility] [address] [place] [address] Dr. Alicia Patel ALP [Catalytic activity/Vol] 79 U/L Normal 46-116 [facility] Comment on above: Performed By: #### T SH, LIPID, T4, FT3, CMP #### [facility] [address] [place] [address] Dr. Alicia Patel ALT [Catalytic activity/Vol] 61 U/L Normal 16-63 [facility] Comment on above: Performed By: #### T SH, LIPID, T4, FT3, CMP #### [facility] [address] [place] [address] Dr. Alicia Patel Anion gap [Moles/Vol] 12.6 mmol/L Normal [facility] Comment on above: Performed By: #### T SH, LIPID, T4, FT3, CMP #### [facility] [address] [place] [address] Dr. Alicia Patel AST [Catalytic activity/Vol] 39 U/L Critically high 15-37 [facility] Comment on above: Performed By: #### T SH, LIPID, T4, FT3, CMP #### [facility] [address] [place] [address] Dr. Alicia Patel Bilirubin [Mass/Vol] 0.7 mg/dL Normal 0.2-1.0 [facility] Comment on above: Performed By: #### T SH, LIPID, T4, FT3, CMP #### [facility] [address] [place] [address] Dr. Alicia Patel Calcium [Mass/Vol] 8.9 mg/dL Normal 8.5-10.1 [facility] Comment on above: Performed By: #### T SH, LIPID, T4, FT3, CMP #### [facility] [address] [place] [address] Dr. Alicia Patel Chloride [Moles/Vol] 111 mmol/L Critically high 98-107 [facility] Comment on above: Performed By: #### T SH, LIPID, T4, FT3, CMP #### [facility] [address] [place] [address] Dr. Alicia Patel CO2 [Moles/Vol] 24.0 mmol/L Normal 21.0-32.0 [facility] Comment on above: Performed By: #### T SH, LIPID, T4, FT3, CMP #### [facility] [address] [place] [address] Dr. Alicia Patel Creatinine [Mass/Vol] 1.80 mg/dL Critically high 0.70-1.30 [facility] Comment on above: Performed By: #### T SH, LIPID, T4, FT3, CMP #### [facility] [address] [place] [address] Dr. Alicia Patel EGFR-AF BULGARIAN 44 mL/min/1.73m2 Critically low >=60 [facility] Comment on above: Performed By: #### T SH, LIPID, T4, FT3, CMP #### [facility] [address] [place] [address] Dr. Alicia Patel EGFR-NON AF BULGARIAN 36 mL/min/1.73m2 Critically low >=60 [facility] Comment on above: Performed By: #### T SH, LIPID, T4, FT3, CMP #### [facility] [address] [place] [address] Dr. Alicia Patel Globulin (S) [Mass/Vol] 3.5 g/dL Normal [facility] Comment on above: Performed By: #### T SH, LIPID, T4, FT3, CMP #### [facility] [address] [place] [address] Dr. Alicia Patel Glucose [Mass/Vol] 118 mg/dL Critically high 74-106 [facility] Comment on above: Performed By: #### T SH, LIPID, T4, FT3, CMP #### [facility] [address] [place] [address] Dr. Alicia Patel Potassium [Moles/Vol] 4.6 mmol/L Normal 3.5-5.1 [facility] Comment on above: Performed By: #### T SH, LIPID, T4, FT3, CMP #### [facility] [address] [place] [address] Dr. Alicia Patel Protein [Mass/Vol] 6.8 g/dL Normal 6.4-8.2 [facility] Comment on above: Performed By: #### T SH, LIPID, T4, FT3, CMP #### [facility] [address] [place] [address] Dr. Alicia Patel Sodium [Moles/Vol] 143 mmol/L Normal 136-145 [facility] Comment on above: Performed By: #### T SH, LIPID, T4, FT3, CMP #### [facility] [address] [place] [address] Dr. Alicia Patel Urea nitrogen [Mass/Vol] 31.0 mg/dL Critically high 7.0-18.0 [facility] Comment on above: Performed By: #### T SH, LIPID, T4, FT3, CMP #### [facility] [address] [place] [address] Dr. Alicia Patel Urea nitrogen/Creatinine [Mass ratio] 17.2 mg/mg Normal [facility] Comment on above: Performed By: #### T SH, LIPID, T4, FT3, CMP #### [facility] [address] [place] [address] Dr. Alicia Patel T4on 08-21-2022 T4 [Mass/Vol] 7.70 ug/dL Normal 4.50-12.10 [facility] Comment on above: Performed By: #### T SH, LIPID, T4, FT3, CMP #### [facility] [address] [place] [address] Dr. Alicia Patel TSHon 08-21-2022 TSH 1.138 uIU/mL Normal 0.358-3.74 0 [facility] Comment on above: Performed By: #### T SH, LIPID, T4, FT3, CMP #### [facility] [address] [place] [address] Dr. Alciia Patel RENAL FUNCTION PANELon 08-18 Albumin [Mass/Vol] 3.3 g/dL Critically low 3.4-5.0 [facility] Comment on above: Performed By: #### U RTPCR #### [facility] [address] [place] [address] Dr. Alicia Patel Calcium [Mass/Vol] 8.3 mg/dL Critically low 8.5-10.1 [facility] Comment on above: Performed By: #### U RTPCR #### [facility] [address] [place] [address] Dr. Alicia Patel Chloride [Moles/Vol] 109 mmol/L Critically high 98-107 [facility] Comment on above: Performed By: #### U RTPCR #### [facility] [address] [place] [address] Dr. Alicia Patel CO2 [Moles/Vol] 22.1 mmol/L Normal 21.0-32.0 [facility] Comment on above: Performed By: #### U RTPCR #### [facility] [address] [place] [address] Dr. Alicia Patel Creatinine [Mass/Vol] 2.14 mg/dL Critically high 0.70-1.30 [facility] Comment on above: Performed By: #### U RTPCR #### [facility] [address] [address] [address] Alicia Patel EGFR-AF BULGARIAN 36 mL/min/1.73m2 Critically low >=60 [facility] Comment on above: Performed By: #### U RTPCR #### [facility] [address] [address] [address] Alicia Patel EGFR-NON AF BULGARIAN 30 mL/min/1.73m2 Critically low >=60 [facility] Comment on above: Performed By: #### U RTPCR #### [facility] [address] [place] [address] Dr. Alicia Patel Glucose [Mass/Vol] 102 mg/dL Normal 74-106 [facility] Comment on above: Performed By: #### U RTPCR #### [facility] [address] [address] [address] Alicia Patel Phosphate [Mass/Vol] 3.1 mg/dL Normal 2.6-4.7 [facility] Comment on above: Performed By: #### U RTPCR #### [facility] [address] [place] [address] Dr. Alicia Patel Potassium [Moles/Vol] 3.9 mmol/L Normal 3.5-5.1 [facility] Comment on above: Performed By: #### U RTPCR #### [facility] [address] [place] [address] Dr. Alicia Patel Sodium [Moles/Vol] 141 mmol/L Normal 136-145 [facility] Comment on above: Performed By: #### U RTPCR #### [facility] [address] [address] [address] Alicia Patel Urea nitrogen [Mass/Vol] 41.0 mg/dL Critically high 7.0-18.0 [facility] Comment on above: Performed By: #### U RTPCR #### [facility] [address] [address] [address] Alicia Patel ED Note-Physicianon 08-17-19 ED Note-Physician [id number]#1.00CD:127 Normal [facility] RAD - CT Reporton 08-17-2022 RAD - CT Report [id number]#1.00CD:127 Normal [facility] RAD - MISCon 08-17-2022 RAD - MISC [id number]#1.00CD:127 Normal [facility] RAD - MISC [id number]#1.00CD:127 [facility] Insurance Correspondence Off iceon 08-16-2022 Insurance Correspondence Office [id number]#1.00CD:127 Normal [facility] Creatinine and Glomerular fi ltration rate.predicted panel (S/P/Bld)Ordered By: Hiral Interiano on 08-15-2022 Creatinine [Mass/Vol] 3.46 mg/dL 0.64-1.27 [facility] Comment on above: Delta: 6.60 on 08/14 Estimated glomerular filtrat ion rate (GFR) non- AmericanOrdered By: Hiral Interiano on 08-15-2022 GFR/1.73 sq M.predicted among non-blacks MDRD (S/P/Bld) [Vol rate/Area] 17 mL/Min [facility] Glucose Glucometer (BldC) [M ass/Vol]Ordered By: Hiral Interiano on 08-15-2022 Glucose [Mass/Vol] 135 mg/dL [facility] Comment on above: Random Glucose Refer ence Range is dependent on time and content of last meal. Glucose of more than 200 mg/dL in a nonstressed, ambulatory subject supports the diagnosis of Diabetes Mellitus. No Panel InformationOrdered By: Hiral Interiano on 08-15-2022 Estimated GFR () 21 mL/Min [facility] Comment on above: GFR estimated refere nce range: According to KDOQI guidelines, <60 ml/min/1.73m2 is sufficient to diagnose a patient with chronic kidney disease. Pharmacy Creatinine Clearance (Chem 21.94 [facility] Serum or plasma anion gap de terminationOrdered By: Hiral Interiano on 08-15-2022 Anion gap [Moles/Vol] 10.3 mmol/L 6.0-15.0 [facility] Serum or plasma calcium alpesh urement (mass/volume)Ordered By: Hiral Interiano on 08-15-2022 Calcium [Mass/Vol] 7.7 mg/dL 8.2-10.2 [facility] Serum or plasma chloride adina surement (moles/volume)Ordered By: Hiral Interiano on 08-15-2022 Chloride [Moles/Vol] 112 mmol/L 95-114 [facility] Serum or plasma glucose alpesh urement (mass/volume)Ordered By: Hiral Interiano on 08-15-2022 Glucose [Mass/Vol] 140 mg/dL 70-100 [facility] Comment on above: ADA recommended refe rence rangeRandom Glucose Reference Range is dependent on time and content of last meal. Glucose of more than 200 mg/dL in a nonstressed, ambulatory subject supports the diagnosis of Diabetes Mellitus. Serum or plasma potassium me asurement (moles/volume)Ordered By: Hiral Interiano on 08-15-2022 Potassium [Moles/Vol] 3.8 mmol/L 3.5-5.1 [facility] Serum or plasma sodium measu rement (moles/volume)Ordered By: Hiral Interiano on 08-15-2022 Sodium [Moles/Vol] 140 mmol/L 136-146 [facility] Serum or plasma total carbon dioxide measurement (moles/volume)Ordered By: Hiral Interiano on 08-15-2022 CO2 [Moles/Vol] 21.5 mmol/L 22.0-30.0 [facility] Serum or plasma urea nitroge n measurement (mass/volume)Ordered By: Hiral Interiano on 08-15-2022 Urea nitrogen [Mass/Vol] 45 mg/dL 9-23 [facility] Basophils Auto (Bld) [#/Vol] Ordered By: Hiral Interiano on 08-14-2022 Basophils (Bld) [#/Vol] 0.0 10*3/uL 0.0-0.2 [facility] Basophils/100 WBC Auto (Bld) Ordered By: Hiral Interiano on 08-14-2022 Basophils/100 WBC (Bld) 0.2 % . [facility] Eosinophils Auto (Bld) [#/Vo l]Ordered By: Hiral Interiano on 08-14-2022 Eosinophils (Bld) [#/Vol] 0.1 10*3/uL 0.0-0.45 [facility] Eosinophils/100 WBC Auto (Bl d)Ordered By: Hrial Interiano on 08-14-2022 Eosinophils/100 WBC (Bld) 1.0 % . [facility] Erythrocyte distribution wid th Auto (RBC) [Ratio]Ordered By: Hiral Interiano on 08-14-2022 Erythrocyte distribution width (RBC) [Ratio] 13.5 % 12.0-14.8 [facility] Hematocrit Auto (Bld) [Volum e fraction]Ordered By: Hiral Interiano on 08-14-2022 Hematocrit (Bld) [Volume fraction] 35.4 % 38.8-50.0 [facility] Hemoglobin [Mass/volume] in BloodOrdered By: Hiral Interiano on 08-14-2022 Hemoglobin (Bld) [Mass/Vol] 12.0 g/dL 13.0-17.0 [facility] Leukocytes [#/volume] correc ike for nucleated erythrocytes in Blood by Automated counOrdered By: Hiral Interiano on 08-14-2022 WBC corrected for nucl RBC Auto (Bld) [#/Vol] 7.4 10*3/uL 4.1-10.5 [facility] Lymphocytes Auto (Bld) [#/Vo l]Ordered By: Hiral Interiano on 08-14-2022 Lymphocytes (Bld) [#/Vol] 0.6 10*3/uL 1.00-4.8 [facility] Lymphocytes/100 WBC Auto (Bl d)Ordered By: Hiral Interiano on 08-14-2022 Lymphocytes/100 WBC (Bld) 7.8 % . [facility] MCH Auto (RBC) [Entitic mass ]Ordered By: Hiral Interiano on 08-14-2022 MCH (RBC) [Entitic mass] 33.0 pg 27.5-35.2 [facility] MCHC Auto (RBC) [Mass/Vol]Or dered By: Hiral Interiano on 08-14-2022 MCHC (RBC) [Mass/Vol] 33.9 g/dL 32.5-35.6 [facility] MCV Auto (RBC) [Entitic vol] Ordered By: Hiral Interiano on 08-14-2022 MCV (RBC) [Entitic vol] 97.3 fL 83.5-101 [facility] Monocytes Auto (Bld) [#/Vol] Ordered By: Hiral Interiano on 08-14-2022 Monocytes (Bld) [#/Vol] 0.8 10*3/uL 0.0-0.8 [facility] Monocytes/100 WBC Auto (Bld) Ordered By: Hiral Interiano on 08-14-2022 Monocytes/100 WBC (Bld) 11.4 % . [facility] Neutrophils Auto (Bld) [#/Vo l]Ordered By: Hiral Interiano on 08-14-2022 Neutrophils (Bld) [#/Vol] 5.9 10*3/uL 1.8-7.7 [facility] [facility] Neutrophils/100 WBC Auto (Bl d)Ordered By: Hiral Interiano on 08-14-2022 Neutrophils/100 WBC (Bld) 79.6 % . [facility] No Panel InformationOrdered By: Hiral Interiano on 08-14-2022 Bedside Glucose Comment Glu2: cleaned meter [facility] Nucleated erythrocytes [Pres ence] in Blood by Automated countOrdered By: Hiral Interiano on 08-14-2022 Nucleated RBC Auto Ql (Bld) 0.1 /100{WBC} 0-0.5 [facility] Platelet mean volume Auto (B ld) [Entitic vol]Ordered By: Hiral Interiano on 08-14-2022 Platelet mean volume (Bld) [Entitic vol] 8.4 fL 6.6-10.1 [facility] Platelets Auto (Bld) [#/Vol] Ordered By: Hiral Interiano on 08-14-2022 Platelets (Bld) [#/Vol] 121 10*3/uL 150-450 [facility] RBC Auto (Bld) [#/Vol]Ordere d By: Hiral Interiano on 08-14-2022 RBC (Bld) [#/Vol] 3.64 10*6/uL 3.90-5.60 [facility] WBC Auto (Bld) [#/Vol]Ordere d By: Hiral Interiano on 08-14-2022 WBC (Bld) [#/Vol] 7.4 10*3/uL 4.1-10.5 [facility] Body fluid albumin measureme nt (mass/volume)Ordered By: Alicia Perea on 08-13-2022 Albumin (Body fld) [Mass/Vol] 3.0 g/dL 3.2-5.5 [facility] Operative Reporton 3 Operative Report [id number]#[id number]:127 Normal [facility] Consultation Noteon 08-12-19 23 Consultation Note [id number]#[id number]:127 Normal [facility] Glucose mean value [Mass/vol ume] in Blood Estimated from glycated hemoglobinOrdered By: Hiral Interiano on 08-12-2022 Average glucose Estimated from glycated hemoglobin (Bld) [Mass/Vol] 212 mg/dL [facility] Hemoglobin A1c percentageOrd ered By: Hiral Interiano on 08-12-2022 HbA1c (Bld) [Mass fraction] 9.0 % 4.3-5.6 [facility] Comment on above: Increased risk for d iabetes: 5.7 - 6.4diabetes: >6.4glycemic control for adults with diabetes: <7.0 Anisocytosis LM Ql (Bld)Orde red By: Hiral Interiano on 08-11-2022 Anisocytosis Ql (Bld) Slight [facility] Band form neutrophils/100 WB C Manual cnt (Bld)Ordered By: Hiral Interiano on 08-11-2022 Band form neutrophils/100 WBC (Bld) 1 % 0-5 [facility] Beta-hydroxybutyric acid adina surementOrdered By: Alicia Perea on 08-11-2022 Beta hydroxybutyrate [Mass/Vol] 2.40 mmol/L 0.05-0.27 [facility] [place] cells [Presence] in Blo od by Light microscopyOrdered By: Hiral Interiano on 08-11-2022 [place] cells LM Ql (Bld) Slight [facility] [place] [facility] CARDIAC GUIDO 3-6on 3 CK [Catalytic activity/Vol] 162 U/L Normal 39-308 [facility] Comment on above: Performed By: #### T SH, LIPID, T4, FT3, CMP #### [facility] [address] [address] [address] Alicia ARAIZA.MB [Mass/Vol] 5.52 ng/mL Critically high <=3.60 [facility] Comment on above: Performed By: #### T SH, LIPID, T4, FT3, CMP #### [facility] [address] [place] [address] Dr. Alicia Patel HSTROP 19.7 pg/mL Normal 4.0-76.1 [facility] Comment on above: Result Comment: CUT- OFF POINTS HAVE BEEN ESTABLISHED BASED ON THE FOURTH UNIVERSAL DEFINITIONS OF MYOCARDIAL INFARCTION. THE UPPER REFERENCE LIMIT (URL) OF TROPONIN, DEFINED THE 99TH PERCENTILE OF cTnI DISTRIBUTION IN A REFERENCE POPULATION, HAS BEEN CONFIRMED THE DECISION THRESHOLD FOR [place] DIAGNOSIS. Performed By: #### T SH, LIPID, T4, FT3, CMP #### [facility] [address] [address] [address] Alicia Patel CK [Catalytic activity/Vol] 150 U/L Normal 39-308 [facility] Comment on above: Performed By: #### T SH, LIPID, T4, FT3, CMP #### [facility] [address] [address] [address] Yilan Patel CK.MB [Mass/Vol] 4.99 ng/mL Critically high <=3.60 [facility] Comment on above: Performed By: #### T SH, LIPID, T4, FT3, CMP #### [facility] [address] [address] [address] Alicia Patel HSTROP 16.9 pg/mL Normal 4.0-76.1 [facility] Comment on above: Result Comment: CUT- OFF POINTS HAVE BEEN ESTABLISHED BASED ON THE FOURTH UNIVERSAL DEFINITIONS OF MYOCARDIAL INFARCTION. THE UPPER REFERENCE LIMIT (URL) OF TROPONIN, DEFINED THE 99TH PERCENTILE OF cTnI DISTRIBUTION IN A REFERENCE POPULATION, HAS BEEN CONFIRMED THE DECISION THRESHOLD FOR [place] DIAGNOSIS. Performed By: #### T SH, LIPID, T4, FT3, CMP #### [facility] [address] [place] [address] Dr. Alicia Patel CARDIAC GUIDO ADMITon 023 CK [Catalytic activity/Vol] 128 U/L Normal 39-308 [facility] Comment on above: Performed By: #### T SH, LIPID, T4, FT3, CMP #### [facility] [address] [address] [address] Alicia Patel CK.MB [Mass/Vol] 4.95 ng/mL Critically high <=3.60 [facility] Comment on above: Performed By: #### T SH, LIPID, T4, FT3, CMP #### [facility] [address] [place] [address] Dr. Alicia Patel HSTROP 18.0 pg/mL Normal 4.0-76.1 [facility] Comment on above: Result Comment: CUT- OFF POINTS HAVE BEEN ESTABLISHED BASED ON THE FOURTH UNIVERSAL DEFINITIONS OF MYOCARDIAL INFARCTION. THE UPPER REFERENCE LIMIT (URL) OF TROPONIN, DEFINED THE 99TH PERCENTILE OF cTnI DISTRIBUTION IN A REFERENCE POPULATION, HAS BEEN CONFIRMED THE DECISION THRESHOLD FOR [place] DIAGNOSIS. Performed By: #### T SH, LIPID, T4, FT3, CMP #### [facility] [address] [place] [address] Dr. Alicia Patel LIZZY 188 ng/mL Critically high 16-96 [facility] Comment on above: Performed By: #### T SH, LIPID, T4, FT3, CMP #### [facility] [address] [place] [address] Dr. Alicia Patel CBC AUTO DIFFon 08-11-2022 BASO # 0.0 103/ul Normal 0.0-0.1 [facility] Comment on above: Performed By: #### T SH, LIPID, T4, FT3, CMP #### [facility] [address] [place] [address] Dr. Alicia Patel Basophils/100 WBC (Bld) 0.3 % Normal 0.2-2.0 [facility] Comment on above: Performed By: #### T SH, LIPID, T4, FT3, CMP #### [facility] [address] [place] [address] Dr. Alicia Patel EO # 0.2 103/ul Normal 0.0-0.7 [facility] Comment on above: Performed By: #### T SH, LIPID, T4, FT3, CMP #### [facility] [address] [place] [address] Dr. Alicia Patel Eosinophils/100 WBC (Bld) 1.8 % Normal 0.9-7.0 [facility] Comment on above: Performed By: #### T SH, LIPID, T4, FT3, CMP #### [facility] [address] [place] [address] Dr. Alicia Patel Erythrocyte distribution width (RBC) [Ratio] 13.2 % Normal 11.0-15.0 [facility] Comment on above: Performed By: #### T SH, LIPID, T4, FT3, CMP #### [facility] [address] [place] [address] Dr. Alicia Patel Hematocrit (Bld) [Volume fraction] 36.0 % Critically low 42.0-54.0 [facility] Comment on above: Performed By: #### T SH, LIPID, T4, FT3, CMP #### [facility] [address] [place] [address] Dr. Alicia Patel Hemoglobin (Bld) [Mass/Vol] 12.0 g/dL Critically low 14.0-18.0 [facility] Comment on above: Performed By: #### T SH, LIPID, T4, FT3, CMP #### [facility] [address] [place] [address] Dr. Alicia Patel IG # 0.34 10e3/ul Critically high 0.00-0.03 [facility] Comment on above: Performed By: #### T SH, LIPID, T4, FT3, CMP #### [facility] [address] [place] [address] Dr. Alicia Patel IG % 3.8 % Critically high 0.0-0.5 [facility] Comment on above: Performed By: #### T SH, LIPID, T4, FT3, CMP #### [facility] [address] [place] [address] Dr. Alicia Patel LYMPH # 0.5 103/ul Critically low 1.2-3.8 [facility] Comment on above: Performed By: #### T SH, LIPID, T4, FT3, CMP #### [facility] [address] [place] [address] Dr. Alicia Patel Lymphocytes/100 WBC (Bld) 5.9 % Critically low 20.5-60.0 [facility] Comment on above: Performed By: #### T SH, LIPID, T4, FT3, CMP #### [facility] [address] [place] [address] Dr. Alicia Patel MANUAL DIFF REQ NO Normal [facility] Comment on above: Performed By: #### T SH, LIPID, T4, FT3, CMP #### [facility] [address] [place] [address] Dr. Alicia Patel MCH (RBC) [Entitic mass] 32.3 pg Normal 25.9-34.0 [facility] Comment on above: Performed By: #### T SH, LIPID, T4, FT3, CMP #### [facility] [address] [place] [address] Dr. Alicia Patel MCHC (RBC) [Mass/Vol] 33.3 g/dL Normal 29.9-35.2 [facility] Comment on above: Performed By: #### T SH, LIPID, T4, FT3, CMP #### [facility] [address] [place] [address] Dr. Alicia Patel MCV (RBC) [Entitic vol] 97.0 fL Critically high 80.0-94.0 [facility] Comment on above: Performed By: #### T SH, LIPID, T4, FT3, CMP #### [facility] [address] [place] [address] Dr. Alicia Patel MONO # 0.5 103/ul Normal 0.3-0.8 [facility] Comment on above: Performed By: #### T SH, LIPID, T4, FT3, CMP #### [facility] [address] [place] [address] Dr. Alicia Patel Monocytes/100 WBC (Bld) 5.5 % Normal 1.7-12.0 [facility] Comment on above: Performed By: #### T SH, LIPID, T4, FT3, CMP #### [facility] [address] [place] [address] Dr. Alicia Patel NEUT # 7.5 103/ul Critically high 1.4-6.5 [facility] Comment on above: Performed By: #### T SH, LIPID, T4, FT3, CMP #### [facility] [address] [place] [address] Dr. Aliica Patel Neutrophils/100 WBC (Bld) 82.7 % Critically high 43.0-75.0 [facility] Comment on above: Performed By: #### T SH, LIPID, T4, FT3, CMP #### [facility] [address] [place] [address] Dr. Alicia Patel Platelet mean volume (Bld) [Entitic vol] 10.2 fL Normal 9.5-13.5 [facility] Comment on above: Performed By: #### T SH, LIPID, T4, FT3, CMP #### [facility] [address] [place] [address] Dr. Alicia Patel PLT 191 103/ul Normal 150-450 [facility] Comment on above: Performed By: #### T SH, LIPID, T4, FT3, CMP #### [facility] [address] [place], [place] [address] Dr. Alicia Patel RBC 3.71 106/ul Critically low 4.70-6.10 [facility] Comment on above: Performed By: #### T SH, LIPID, T4, FT3, CMP #### [facility] [address] [place], [place] [address] Dr. Alicia Patel WBC 9.0 103/ul Normal 4.0-11.0 [facility] Comment on above: Performed By: #### T SH, LIPID, T4, FT3, CMP #### [facility] [address] [place], [place] [address] ABD/PELVIS WO CONon [...] ILA GALLEGO Date: 2022-08-11 08:38 Normal [facility] Covid-19 PCR (CVDTB)on 07-28 SARS-CoV-2 (COVID-19) RNA SAVANNAH+probe Ql (Unsp spec) Not detected Normal NOT DETECTED [facility] Comment on above: Result Comment: When [...] for this test is supported by the [place] of [employer] and Human Service's declaration that [...] T SH, LIPID, T4, FT3, CMP #### [facility] [address] [place] [address] Dr. Alicia Patel ER URINE PROFILEon 3 Bilirubin Ql (U) Negative Normal NEGATIVE [facility] Comment on above: Performed By: #### T SH, LIPID, T4, FT3, CMP #### [facility] [address] [place] [address] Dr. Alicia Patel Clarity (U) CLEAR Normal CLEAR [facility] Comment on above: Performed By: #### T SH, LIPID, T4, FT3, CMP #### [facility] [address] [place] [address] Dr. Alicia Patel Color (U) LT. YELLOW Normal YELLOW [facility] Comment on above: Performed By: #### T SH, LIPID, T4, FT3, CMP #### [facility] [address] [place] [address] Dr. Alicia Patel ERUAHD A micrscopic examina tion will be performed if indicated. Normal [facility] Comment on above: Performed By: #### T SH, LIPID, T4, FT3, CMP #### [facility] [address] [address] [address] Alicia Patel Glucose Ql (U) Negative Normal NEGATIVE [facility] Comment on above: Performed By: #### T SH, LIPID, T4, FT3, CMP #### [facility] [address] [address] [address] Alicia Patel Hemoglobin Ql (U) SMALL Abnormal NEGATIVE [facility] Comment on above: Performed By: #### T SH, LIPID, T4, FT3, CMP #### [facility] [address] [address] [address] Alicia Patel Ketones Ql (U) Negative Normal NEGATIVE [facility] Comment on above: Performed By: #### T SH, LIPID, T4, FT3, CMP #### [facility] [address] [place] [address] Dr. Alicia Patel LEUKOCYTES Negative Normal NEGATIVE [facility] Comment on above: Performed By: #### T SH, LIPID, T4, FT3, CMP #### [facility] [address] [address] [address] Alicia Patel Nitrite Ql (U) Negative Normal NEGATIVE [facility] Comment on above: Performed By: #### T SH, LIPID, T4, FT3, CMP #### [facility] [address] [place] [address] Dr. Alicia Patel pH (U) 6.0 [pH] Normal 5-9 [facility] Comment on above: Performed By: #### T SH, LIPID, T4, FT3, CMP #### [facility] [address] [address] [address] Alicia Patel Protein (U) [Mass/Vol] 100 mg/dL Abnormal NEGAT ОЛЕГ/ TRACE [facility] Comment on above: Performed By: #### T SH, LIPID, T4, FT3, CMP #### [facility] [address] [place] [address] Dr. Alicia Patel SPEC GRAVITY 1.015 Normal 1.005-<=1. 025 [facility] Comment on above: Performed By: #### T SH, LIPID, T4, FT3, CMP #### [facility] [address] [address] [address] Alicia Patel UR MICRO IND INDICATED Normal [facility] Comment on above: Performed By: #### T SH, LIPID, T4, FT3, CMP #### [facility] [address] [address] [address] Alicia Patel Urobilinogen Qn (U) 0.2 {Wil'U}/dL Normal 0.2 - 1. 0 [facility] Comment on above: Performed By: #### T SH, LIPID, T4, FT3, CMP #### [facility] [address] [address] [address] Alicia Patel Hepatitis B virus surface Ag [Presence] in Serum or Plasma by ImmunoassayOrdered By: Alicia Perea on 08-11-2022 HBV surface Ag IA Ql Negative Negative [facility] Hepatitis C virus IgG Ab [Pr esence] in Serum or Plasma by ImmunoassayOrdered By: Alicia Perea on 08-11-2022 HCV IgG IA Ql Non-Reactive Non Reactive [facility] Hepatitis C virus RNA [Units /volume] (viral load) in Serum or Plasma by SAVANNAH with probOrdered By: Alicia Perea on 08-11-2022 HCV RNA SAVANNAH+probe Qn N/A [facility] Hepatitis C virus RNA [log u nits/volume] (viral load) in Serum or Plasma by SAVANNAH withOrdered By: Alicia Perea on 08-11-2022 HCV RNA SAVANNAH+probe [Log units/Vol] N/A [facility] - CoagulationOrde red By: Hiral Interiano on 08-11-2022 PT Coag (PPP) [Time] 12.2 s 9.0-12.9 [facility] Lymphocytes/100 WBC Manual c nt (Bld)Ordered By: Hiral Interiano on 08-11-2022 Lymphocytes/100 WBC (Bld) 5 % 18-42 [facility] Microcytes LM Ql (Bld)Ordere d By: Hiral Interiano on 08-11-2022 Microcytes Ql (Bld) Slight [facility] Monocytes/100 WBC Manual cnt (Bld)Ordered By: Hiral Interiano on 08-11-2022 Monocytes/100 WBC (Bld) 1 % 2-11 [facility] No Panel InformationOrdered By: Alicia Perea on 08-11-2022 Hepatitis A IgM Antibody Negative Negative [facility] Hepatitis B Core IgM Antibody Negative Negative [facility] Hepatitis C Interpretation See comment . [facility] Comment on above: Not infected with HC V unless early or acute infection issuspected (which may be delayed in an immunocompromisedindividual), or other evidence exists to indicate HCVinfection.Performed at: [facility] [address] [id number] Director: Lee Bob PhD, Phone: [phone] Hepatitis C RNA Quantitative N/A [facility] POINT OF CARE GLUCOSEon 07-28 Glucose [Mass/Vol] 132 mg/dL Critically high 74-106 [facility] Comment on above: Performed By: #### T SH, LIPID, T4, FT3, CMP #### [facility] [address] [place] [address] Dr. Alicia Patel Glucose [Mass/Vol] 117 mg/dL Critically high 74-106 [facility] Comment on above: Performed By: #### T SH, LIPID, T4, FT3, CMP #### [facility] [address] [place] [address] Dr. Alicia Patel Glucose [Mass/Vol] 95 mg/dL Normal 74-106 [facility] Comment on above: Performed By: #### P OCGLUC #### [facility] [address] [place] [address] Dr. Alicia Patel PROF CHEM 8 (BAS METB)on Anion gap [Moles/Vol] 29.5 mmol/L Normal [facility] Comment on above: Performed By: #### T SH, LIPID, T4, FT3, CMP #### [facility] [address] [place] [address] Dr. Alicia Patel Calcium [Mass/Vol] 7.7 mg/dL Critically low 8.5-10.1 [facility] Comment on above: Performed By: #### T SH, LIPID, T4, FT3, CMP #### [facility] [address] [place] [address] Dr. Alicia Patel Chloride [Moles/Vol] 102 mmol/L Normal 98-107 [facility] Comment on above: Performed By: #### T SH, LIPID, T4, FT3, CMP #### [facility] [address] [place] [address] Dr. Alicia Patel CO2 [Moles/Vol] 13.5 mmol/L Critically low 21.0-32.0 [facility] Comment on above: Performed By: #### T SH, LIPID, T4, FT3, CMP #### [facility] [address] [place] [address] Dr. Alicia Patel Creatinine [Mass/Vol] 17.89 mg/dL Critically high 0.70-1.3 0 [facility] Comment on above: Performed By: #### T SH, LIPID, T4, FT3, CMP #### [facility] [address] [place] [address] Dr. Alicia Patel EGFR-AF BULGARIAN 3 mL/min/1.73m2 Critically low >=60 [facility] Comment on above: Performed By: #### T SH, LIPID, T4, FT3, CMP #### [facility] [address] [place] [address] Dr. Alicia Patel EGFR-NON AF BULGARIAN 3 mL/min/1.73m2 Critically low >=60 [facility] Comment on above: Performed By: #### T SH, LIPID, T4, FT3, CMP #### [facility] [address] [place] [address] Dr. Alicia Patel Glucose [Mass/Vol] 105 mg/dL Normal 74-106 [facility] Comment on above: Performed By: #### T SH, LIPID, T4, FT3, CMP #### [facility] [address] [place] [address] Dr. Alicia Patel Potassium [Moles/Vol] 7.0 mmol/L Critically high 3.5-5.1 [facility] Comment on above: Performed By: #### T SH, LIPID, T4, FT3, CMP #### [facility] [address] [place], [place] [address] Dr. Alicia aPtel Sodium [Moles/Vol] 138 mmol/L Normal 136-145 [facility] Comment on above: Performed By: #### T SH, LIPID, T4, FT3, CMP #### [facility] [address] [address] [address] Alicia Patel Urea nitrogen [Mass/Vol] 156.0 mg/dL Critically high 7.0-18.0 [facility] Comment on above: Performed By: #### T SH, LIPID, T4, FT3, CMP #### [facility] [address] [address] [address] Alicia Patel Urea nitrogen/Creatinine [Mass ratio] 8.7 mg/mg Normal [facility] Comment on above: Performed By: #### T SH, LIPID, T4, FT3, CMP #### [facility] [address] [address] [address] Alicia Patel Platelet adequacy [Presence] in Blood by Light microscopyOrdered By: Hiral Interiano on 08-11-2022 Platelets LM Ql (Bld) Normal Normal [facility] Platelet morphology finding [Identifier] in BloodOrdered By: Hiral Interiano on 08-11-2022 Platelet morphology finding Nom (Bld) Normal Normal [facility] Platelet poor plasma interna tional normalized ratio (INR) by coagulation assay (relatOrdered By: Hiral Interiano on 08-11-2022 INR Coag (PPP) [Relative time] 1.0 {INR} [facility] Comment on above: INR Therapeutic Rang e [...] on 08-11-2022 Poikilocytosis LM Ql (Bld) Slight [facility] RBC morphologyOrdered By: Donal Interiano on 08-11-2022 RBC morphology finding Nom (Bld) N/A [facility] Segmented neutrophils/100 WB C Manual cnt (Bld)Ordered By: Hiral Interiano on 08-11-2022 Segmented neutrophils/100 WBC (Bld) 94 % 50-70 [facility] Troponin I.cardiac [Mass/vol ume] in Serum or Plasma by High sensitivity methodOrdered By: Hiral Interiano on 08-11-2022 Troponin I.cardiac High sensitivity method [Mass/Vol] 42 pg/mL 0-20 [facility] URINE MICROSCOPIC ONLYon BACTERIA TRACE Abnormal NONE SEEN [facility] Comment on above: Performed By: #### T SH, LIPID, T4, FT3, CMP #### [facility] [address] [address] [address] Alicia Patel Bacteria identified Cx Nom (U) NOT INDICATED Normal [facility] Comment on above: Performed By: #### T SH, LIPID, T4, FT3, CMP #### [facility] [address] [address] [address] Alicia Patel CAST NONE SEEN Normal NONE SEEN [facility] Comment on above: Performed By: #### T SH, LIPID, T4, FT3, CMP #### [facility] [address] [address] [address] Alicia Patel Crystals LM Nom (Urine sed) NONE SEEN Normal NONE SEEN [facility] Comment on above: Performed By: #### T SH, LIPID, T4, FT3, CMP #### [facility] [address] [address] [address] Alicia Patel Epithelial cells LM Ql (Urine sed) RARE Normal NONE SEEN /RARE [facility] Comment on above: Performed By: #### T SH, LIPID, T4, FT3, CMP #### [facility] [address] [address] [address] Alicia Patel MUCOUS NONE SEEN Normal NONE SEEN [facility] Comment on above: Performed By: #### T SH, LIPID, T4, FT3, CMP #### [facility] [address] [place], [place] [address] Dr. Alicia Patel RBC 2-5 Abnormal 0-2 [facility] Comment on above: Performed By: #### T SH, LIPID, T4, FT3, CMP #### [facility] [address] [place], [place] [address] Dr. Alicia Patel WBC 2-5 Abnormal NONE SEEN [facility] Comment on above: Performed By: #### T SH, LIPID, T4, FT3, CMP #### [facility] [address] [place], [place] [address] Dr. Alicia Patel XR CHEST 1 Von [...] YOGESH BYERS Date: 2022-08-11 04:27 Normal [facility] Covid-19 PCR (CVDTBH)on SARS-CoV-2 (COVID-19) RNA SAVANNAH+probe Ql (Unsp spec) Not detected Normal NOT DETECTED [facility] Comment on above: Result Comment: This test is not yet approved or cleared by the [place] FDA. When there are no FDA-approved or cleared tests available, and other criteria are met, FDA can make tests available under an emergency access mechanism called an Emergency Use Authorization (EUA). The EUA for this test is supported by the [place] of Health and Human Service's (HHS's) declaration [...] T SH, LIPID, T4, FT3, CMP #### [facility] [address] [place] [address] Dr. Alicia Patel INFLUENZA A AND B AGon 08-02 INFLUANE SEE BELOW Normal [facility] Comment on above: Result Comment: Nega tive for Flu A protein angiten. Infection due to Flu A cannot be ruled out. Flu A angiten in the sample may be below the detection limit of the test. Performed By: #### T SH, LIPID, T4, FT3, CMP #### [facility] [address] [place] [address] Dr. Alicia Patel INFLUBNEGH SEE BELOW Normal [facility] Comment on above: Result Comment: Nega tive for Flu B protein antigen. Infection due to Flu B cannot be ruled out. Flu B antigen in the sample may be below the detection limit of the test. Performed By: #### T SH, LIPID, T4, FT3, CMP #### [facility] [address] [place] [address] Dr. Alicia Patel INFLUENZA A AG Negative Normal NEGATIVE SEE COMMENT [facility] Comment on above: Performed By: #### T SH, LIPID, T4, FT3, CMP #### [facility] [address] [place] [address] Dr. Alicia Patel INFLUENZA B AG Negative Normal NEGATIVE SEE COMMENT [facility] Comment on above: Performed By: #### T SH, LIPID, T4, FT3, CMP #### [facility] [address] [place] [address] Dr. Alicia Patel PTH INTACTon 05-25-2022 PTH, Intact 47 pg/mL Normal 15-65 [facility] Comment on above: Performed By: #### T SH, LIPID, T4, FT3, CMP #### [facility] [address] [place] [address] Dr. Alicia Patel ALBUMINon 05-24-2022 Albumin [Mass/Vol] 3.9 g/dL Normal 3.4-5.0 [facility] Comment on above: Performed By: #### T SH, LIPID, T4, FT3, CMP #### [facility] [address] [place] [address] Dr. Alicia Patel HEMOGRAM AND PLATELon 2021 Hematocrit (Bld) [Volume fraction] 42.1 % Normal 42.0-54.0 [facility] Comment on above: Performed By: #### T SH, LIPID, T4, FT3, CMP #### [facility] [address] [place] [address] Dr. Alicia Patel Hemoglobin (Bld) [Mass/Vol] 14.7 g/dL Normal 14.0-18.0 [facility] Comment on above: Performed By: #### T SH, LIPID, T4, FT3, CMP #### [facility] [address] [place] [address] Dr. Alicia Patel MCH (RBC) [Entitic mass] 33.2 pg Normal 25.9-34.0 [facility] Comment on above: Performed By: #### T SH, LIPID, T4, FT3, CMP #### [facility] [address] [place] [address] Dr. Alicia Patel MCHC (RBC) [Mass/Vol] 34.9 g/dL Normal 29.9-35.2 [facility] Comment on above: Performed By: #### T SH, LIPID, T4, FT3, CMP #### [facility] [address] [place] [address] Dr. Alicia Patel MCV (RBC) [Entitic vol] 95.0 fL Critically high 80.0-94.0 [facility] Comment on above: Performed By: #### T SH, LIPID, T4, FT3, CMP #### [facility] [address] [place] [address] Dr. Alicia Patel PLT 190 103/ul Normal 150-450 [facility] Comment on above: Performed By: #### T SH, LIPID, T4, FT3, CMP #### [facility] [address] [place] [address] Dr. Alicia Patel RBC 4.43 106/ul Critically low 4.70-6.10 [facility] Comment on above: Performed By: #### T SH, LIPID, T4, FT3, CMP #### [facility] [address] [place] [address] Dr. Alicia Patel WBC 7.0 103/ul Normal 4.0-11.0 [facility] Comment on above: Performed By: #### T SH, LIPID, T4, FT3, CMP #### [facility] [address] [place] [address] Dr. Alicia Patel MAGNESIUMon 05-24-2022 Magnesium [Mass/Vol] 1.7 mg/dL Critically low 1.8-2.4 [facility] Comment on above: Performed By: #### T SH, LIPID, T4, FT3, CMP #### [facility] [address] [place] [address] Dr. Alicia Patel PHOSPHORUSon 05-24-2022 Phosphate [Mass/Vol] 3.7 mg/dL Normal 2.6-4.7 [facility] Comment on above: Performed By: #### T SH, LIPID, T4, FT3, CMP #### [facility] [address] [place] [address] Dr. Alicia Patel PROF CHEM 8 (BAS METB)on Anion gap [Moles/Vol] 11.2 mmol/L Normal [facility] Comment on above: Performed By: #### U RTPCR #### [facility] [address] [place] [address] Dr. Alicia Patel Calcium [Mass/Vol] 9.1 mg/dL Normal 8.5-10.1 [facility] Comment on above: Performed By: #### U RTPCR #### [facility] [address] [place] [address] Dr. Alicia Patel Chloride [Moles/Vol] 104 mmol/L Normal 98-107 [facility] Comment on above: Performed By: #### U RTPCR #### [facility] [address] [address] [address] Alicia Patel CO2 [Moles/Vol] 29.2 mmol/L Normal 21.0-32.0 [facility] Comment on above: Performed By: #### U RTPCR #### [facility] [address] [address] [address] Alicia Patel Creatinine [Mass/Vol] 1.40 mg/dL Critically high 0.70-1.30 [facility] Comment on above: Performed By: #### U RTPCR #### [facility] [address] [address] [address] Alicia Patel EGFR-AF BULGARIAN 59 mL/min/1.73m2 Critically low >=60 [facility] Comment on above: Performed By: #### U RTPCR #### [facility] [address] [address] [address] Alicia Patel EGFR-NON AF BULGARIAN 49 mL/min/1.73m2 Critically low >=60 [facility] Comment on above: Performed By: #### U RTPCR #### [facility] [address] [address] [address] Alicia Patel Glucose [Mass/Vol] 148 mg/dL Critically high 74-106 [facility] Comment on above: Performed By: #### U RTPCR #### [facility] [address] [address] [address] Alicia Patel Potassium [Moles/Vol] 4.4 mmol/L Normal 3.5-5.1 [facility] Comment on above: Performed By: #### U RTPCR #### [facility] [address] [address] [address] Alicia Patel Sodium [Moles/Vol] 140 mmol/L Normal 136-145 [facility] Comment on above: Performed By: #### U RTPCR #### [facility] [address] [address] [address] Alicia Patel Urea nitrogen [Mass/Vol] 16.0 mg/dL Normal 7.0-18.0 [facility] Comment on above: Performed By: #### U RTPCR #### [facility] [address] [address] [address] Alicia Patel Urea nitrogen/Creatinine [Mass ratio] 11.4 mg/mg Normal [facility] Comment on above: Performed By: #### U RTPCR #### [facility] [address] [place] [address] Dr. Alicia Patel UA RANDOM W/MICROSCOPICon BACTERIA NONE SEEN Normal NONE SEEN [facility] Comment on above: Performed By: #### T SH, LIPID, T4, FT3, CMP #### [facility] [address] [place] [address] Dr. Alicia Patel Bilirubin Ql (U) Negative Normal NEGATIVE [facility] Comment on above: Performed By: #### T SH, LIPID, T4, FT3, CMP #### [facility] [address] [place] [address] Dr. Alicia Patel CAST NONE SEEN Normal NONE SEEN [facility] Comment on above: Performed By: #### T SH, LIPID, T4, FT3, CMP #### [facility] [address] [place] [address] Dr. Alicia Patel Clarity (U) CLEAR Normal CLEAR [facility] Comment on above: Performed By: #### T SH, LIPID, T4, FT3, CMP #### [facility] [address] [place] [address] Dr. Alicia Patel Color (U) LT. YELLOW Normal YELLOW [facility] Comment on above: Performed By: #### T SH, LIPID, T4, FT3, CMP #### [facility] [address] [place] [address] Dr. Alicia Patel Crystals LM Nom (Urine sed) NONE SEEN Normal NONE SEEN [facility] Comment on above: Performed By: #### T SH, LIPID, T4, FT3, CMP #### [facility] [address] [place] [address] Dr. Alicia Patel Epithelial cells LM Ql (Urine sed) FEW Abnormal NONE SEEN /RARE [facility] Comment on above: Performed By: #### T SH, LIPID, T4, FT3, CMP #### [facility] [address] [place] [address] Dr. Alicia Patel Glucose Ql (U) Negative Normal NEGATIVE [facility] Comment on above: Performed By: #### T SH, LIPID, T4, FT3, CMP #### [facility] [address] [place] [address] Dr. Alicia Patel Hemoglobin Ql (U) Negative Normal NEGATIVE [facility] Comment on above: Performed By: #### T SH, LIPID, T4, FT3, CMP #### [facility] [address] [place] [address] Dr. Alicia Patel Ketones Ql (U) Negative Normal NEGATIVE [facility] Comment on above: Performed By: #### T SH, LIPID, T4, FT3, CMP #### [facility] [address] [place] [address] Dr. Alicia Patel LEUKOCYTES Negative Normal NEGATIVE [facility] Comment on above: Performed By: #### T SH, LIPID, T4, FT3, CMP #### [facility] [address] [place] [address] Dr. Alicia Patel MUCOUS NONE SEEN Normal NONE SEEN [facility] Comment on above: Performed By: #### T SH, LIPID, T4, FT3, CMP #### [facility] [address] [place] [address] Dr. Alicia Patel Nitrite Ql (U) Negative Normal NEGATIVE [facility] Comment on above: Performed By: #### T SH, LIPID, T4, FT3, CMP #### [facility] [address] [place] [address] Dr. Alicia Patel pH (U) 5.5 [pH] Normal 5-9 [facility] Comment on above: Performed By: #### T SH, LIPID, T4, FT3, CMP #### [facility] [address] [place] [address] Dr. Alicia Patel RBC NONE SEEN Abnormal 0-2 [facility] Comment on above: Performed By: #### T SH, LIPID, T4, FT3, CMP #### [facility] [address] [place] [address] Dr. Alicia Patel SPEC GRAVITY 1.020 Normal 1.005-<=1. 025 [facility] Comment on above: Performed By: #### T SH, LIPID, T4, FT3, CMP #### [facility] [address] [place] [address] Dr. Alicia Patel UA PROTEIN Negative Normal NEGATIVE/ TRACE [facility] Comment on above: Performed By: #### T SH, LIPID, T4, FT3, CMP #### [facility] [address] [place] [address] Dr. Alicia Patel Urobilinogen Qn (U) 0.2 {Wil'U}/dL Normal 0.2 - 1. 0 [facility] Comment on above: Performed By: #### T SH, LIPID, T4, FT3, CMP #### [facility] [address] [place] [address] Dr. Alicia Patel WBC NONE SEEN Normal NONE SEEN [facility] Comment on above: Performed By: #### T SH, LIPID, T4, FT3, CMP #### [facility] [address] [place] [address] Dr. Alicia Patel URIC ACID SERUMon 05-24-2022 Urate [Mass/Vol] 5.6 mg/dL Normal 3.5-7.2 [facility] Comment on above: Performed By: #### T SH, LIPID, T4, FT3, CMP #### [facility] [address] [place] [address] Dr. Alicia Patel URINE T PROTEIN CREAT RATIOo n 05-24-2022 Protein (U) [Mass/Vol] 26.0 mg/dL Critically high <=12.0 [facility] Comment on above: Performed By: #### T SH, LIPID, T4, FT3, CMP #### [facility] [address] [place] [address] Dr. Alicia Patel UR PROT CREAT RAT 0.34 Normal [facility] Comment on above: Performed By: #### T SH, LIPID, T4, FT3, CMP #### [facility] [address] [address] [address] Alicia Patel URINE CREAT 77.39 mg/dL Normal 20.00-300. 00 [facility] Comment on above: Performed By: #### T SH, LIPID, T4, FT3, CMP #### [facility] [address] [address] [address] Alicia Patel Vital Signs Date Time Vital Sign Value Performing Clinician Facility 12-20-2023 11:49-0400 Body height 175.26 cm MD Tray Alfaro Work Phone: [facility] 12-20-2023 11:49-0400 Body mass index (BMI) [Ratio] 39.4 kg/m2 MD Tray Alfaro Work Phone: [facility] 12-20-2023 11:49-0400 Body temperature 96.5 [degF] MD Tray Alfaro Work Phone: [facility] 12-20-2023 11:49-0400 Body weight 121.33 kg MD Tray Alfaro Work Phone: [facility] 12-20-2023 11:49-0400 Diastolic blood pressure 74 mm[Hg] MD Tray Alfaro Work Phone: [facility] 12-20-2023 11:49-0400 Heart rate 83 /min MD Tray Alfaro Work Phone: [facility] 12-20-2023 11:49-0400 Respiratory rate 20 /min MD Tray Alfaro Work Phone: [facility] 12-20-2023 11:49-0400 SaO2% (BldA) [Mass fraction] 94 % MD Tray Alfaro Work Phone: [facility] 12-20-2023 11:49-0400 Systolic blood pressure 135 mm[Hg] MD Tray Alfaro Work Phone: [facility] 06-14-2023 11:00-0500 Body height 175.26 cm Alicia Perea Other [employer] Other 06-14-2023 11:00-0500 Body mass index (BMI) [Ratio] 38.51 kg/m2 Alicia Brit Other [employer] Other 06-14-2023 11:00-0500 Body temperature 97.2 [degF] Alicia Brit Other [employer] Other 06-14-2023 11:00-0500 Body weight 118.3 kg Alicia Brit Other [employer] Other 06-14-2023 11:00-0500 Diastolic blood pressure 72 mm[Hg] Alicia Brit Other [employer] Other 06-14-2023 11:00-0500 Respiratory rate 18 /min Alicia Brit Other [employer] Other 06-14-2023 11:00-0500 SaO2% (BldA) [Mass fraction] 95 % Alicia Brit Other [employer] Other 06-14-2023 11:00-0500 Systolic blood pressure 122 mm[Hg] Alicia Brit Other [employer] Other 11-29-2022 10:20-0400 Body height 175.26 cm Alicia Brit Other [employer] Other 11-29-2022 10:20-0400 Body mass index (BMI) [Ratio] 36.77 kg/m2 Alicia Brit Other [employer] Other 11-29-2022 10:20-0400 Body temperature 96.3 [degF] Alicia Brit Other [employer] Other 11-29-2022 10:20-0400 Body weight 112.95 kg Alicia Brit Other [employer] Other 11-29-2022 10:20-0400 Diastolic blood pressure 72 mm[Hg] Alicia Brit Other [employer] Other 11-29-2022 10:20-0400 Respiratory rate 18 /min Alicia Brit Other [employer] Other 11-29-2022 10:20-0400 SaO2% (BldA) [Mass fraction] 96 % Alicia Brit Other [employer] Other 11-29-2022 10:20-0400 Systolic blood pressure 137 mm[Hg] Alicia Brit Other [employer] Other 10-07-2022 17:25-0400 Heart rate 66 /min [employer] [facility] 10-07-2022 17:25-0400 SaO2% (BldA) [Mass fraction] 92 % [employer] [facility] 10-07-2022 17:25-0400 Respiratory rate 16 /min [employer] [facility] 10-07-2022 17:24-0400 Body temperature 97.7 [degF] [employer] [facility] 10-07-2022 17:24-0400 Diastolic blood pressure 74 mm[Hg] [employer] [facility] 10-07-2022 17:24-0400 Mean blood pressure 106 mm[Hg] [employer] [facility] 10-07-2022 17:24-0400 Systolic blood pressure 170 mm[Hg] [employer] [facility] 10-07-2022 16:18-0400 Heart rate 61 /min [employer] [facility] 10-07-2022 16:18-0400 SaO2% (BldA) [Mass fraction] 95 % [employer] [facility] 10-07-2022 16:17-0400 Diastolic blood pressure 81 mm[Hg] [employer] [facility] 10-07-2022 16:17-0400 Mean blood pressure 103 mm[Hg] [employer] [facility] 10-07-2022 16:17-0400 Systolic blood pressure 148 mm[Hg] [employer] [facility] 10-07-2022 16:17-0400 Respiratory rate 16 /min [employer] [facility] 10-07-2022 16:11-0400 Diastolic blood pressure 75 mm[Hg] [employer] [facility] 10-07-2022 16:11-0400 Heart rate 58 /min [employer] [facility] 10-07-2022 16:11-0400 Mean blood pressure 98 mm[Hg] [employer] [facility] 10-07-2022 16:11-0400 Respiratory rate 17 /min [employer] [facility] 10-07-2022 16:11-0400 SaO2% (BldA) [Mass fraction] 97 % [employer] [facility] 10-07-2022 16:11-0400 Systolic blood pressure 144 mm[Hg] [employer] [facility] 10-07-2022 16:00-0400 Mean blood pressure 92 mm[Hg] [employer] [facility] 10-07-2022 16:00-0400 Respiratory rate 13 /min [employer] [facility] 10-07-2022 15:55-0400 Mean blood pressure 86 mm[Hg] [employer] [facility] 10-07-2022 15:55-0400 Respiratory rate 17 /min [employer] [facility] 10-07-2022 15:46-0400 Body temperature 98.06 [degF] [employer] [facility] 10-07-2022 15:40-0400 Respiratory rate 15 /min Ni [facility] 10-07-2022 10:14-0400 Mean blood pressure 97 mm[Hg] Ni [facility] 10-07-2022 10:14-0400 Blood Pressure Location [facility] [employer] [facility] 10-07-2022 10:13-0400 Heart rate 64 /min [facility] [employer] [facility] 10-07-2022 10:12-0400 Body temperature 98.06 [degF] [facility] 10-07-2022 10:12-0400 Blood Pressure Location [employer] [facility] 09-15-2022 14:40-0400 Body height 175.26 cm Alicia Brit Other [employer] Other 09-15-2022 14:40-0400 Body mass index (BMI) [Ratio] 37.48 kg/m2 Alicia Brit Other [employer] Other 09-15-2022 14:40-0400 Body weight 115.12 kg Alicia Brit Other [employer] Other 09-15-2022 14:40-0400 Diastolic blood pressure 73 mm[Hg] Alicia Brit Other [employer] Other 09-15-2022 14:40-0400 Respiratory rate 18 /min Alicia Brit Other [employer] Other 09-15-2022 14:40-0400 SaO2% (BldA) [Mass fraction] 97 % Alicia Brit Other [employer] Other 09-15-2022 14:40-0400 Systolic blood pressure 138 mm[Hg] Alicia Brit Other [employer] Other 09-06-2022 10:01-0400 Blood Pressure Location Ni OLIVARES [facility] 09-06-2022 10:01-0400 Diastolic blood pressure 70 mm[Hg] Ni MARSHALL [facility] 09-06-2022 10:01-0400 Heart rate 68 /min Ni OLIVARES [facility] 09-06-2022 10:01-0400 Systolic blood pressure 132 mm[Hg] Ni OLIVARES [facility] 08-15-2022 12:16-0500 Body temperature 97.8 [degF] MD Tray Alfaro Work Phone: [facility] 08-15-2022 12:16-0500 Diastolic blood pressure 92 mm[Hg] MD Tray Alfaro Work Phone: [facility] 08-15-2022 12:16-0500 Heart rate 68 /min MD Tray Alfaro Work Phone: [facility] 08-15-2022 12:16-0500 Respiratory rate 18 /min MD Tray Alfaro Work Phone: [facility] 08-15-2022 12:16-0500 SaO2% (BldA) [Mass fraction] 95 % MD Tray Alfaro Work Phone: [facility] 08-15-2022 12:16-0500 Systolic blood pressure 146 mm[Hg] MD Tray Alfaro Work Phone: [facility] 08-15-2022 05:08-0500 Body weight 118.2 kg MD Tray Alfaro Work Phone: [facility] 08-13-2022 13:10-0500 Inhaled oxygen flow rate 8 L/min MD Tray Alfaro Work Phone: [facility] 08-13-2022 11:54-0500 Body height 177.8 cm MD Tray Alfaro Work Phone: [facility] 08-13-2022 11:54-0500 Body mass index (BMI) [Ratio] 37.3 kg/m2 MD Tray Alfaro Work Phone: [facility] 06-01-2022 11:40-0500 Body height 175.26 cm Alicia Brit Other [employer] Other 06-01-2022 11:40-0500 Body mass index (BMI) [Ratio] 37.77 kg/m2 Alicia Brit Other [employer] Other 06-01-2022 11:40-0500 Body temperature 97.5 [degF] Alicia Brit Other [employer] Other 06-01-2022 11:40-0500 Body weight 116.03 kg Alicia Brit Other [employer] Other 06-01-2022 11:40-0500 Diastolic blood pressure 71 mm[Hg] Alicia Brit Other [employer] Other 06-01-2022 11:40-0500 Respiratory rate 18 /min Alicia Brit Other [employer] Other 06-01-2022 11:40-0500 SaO2% (BldA) [Mass fraction] 93 % Alicia Brit Other [employer] Other 06-01-2022 11:40-0500 Systolic blood pressure 134 mm[Hg] Alicia Brit Other [employer] Other 11-24-2021 11:20-0400 Body height 175.26 cm Alicia Brit Other [employer] Other 11-24-2021 11:20-0400 Body mass index (BMI) [Ratio] 36.26 kg/m2 Alicia Brit Other [employer] Other 11-24-2021 11:20-0400 Body temperature 96.4 [degF] Alicia Brit Other [employer] Other 11-24-2021 11:20-0400 Body weight 111.4 kg Alicia Brit Other [employer] Other 11-24-2021 11:20-0400 Diastolic blood pressure 72 mm[Hg] Alicia Brit Other [employer] Other 11-24-2021 11:20-0400 Respiratory rate 18 /min Alicia Brit Other [employer] Other 11-24-2021 11:20-0400 SaO2% (BldA) [Mass fraction] 95 % Alicia Brit Other [employer] Other 11-24-2021 11:20-0400 Systolic blood pressure 139 mm[Hg] Alicia Brit Other [employer] Other 10-26-2021 09:17-0400 Blood Pressure Location [facility] 10-26-2021 09:17-0400 Diastolic blood pressure 69 mm[Hg] Milton BRAUN [facility] 10-26-2021 09:17-0400 Heart rate 64 /min [facility] BRAUN [facility] 10-26-2021 09:17-0400 Respiratory rate 16 /min Milton BRAUN [facility] 10-26-2021 09:17-0400 Systolic blood pressure 139 mm[Hg] Milton BRAUN [facility] 05-26-2021 11:00-0500 Body height 175.26 cm Alicia Brit Other [employer] Other 05-26-2021 11:00-0500 Body mass index (BMI) [Ratio] 34.4 kg/m2 Alicia Brit Other [employer] Other 05-26-2021 11:00-0500 Body temperature 96.9 [degF] Alicia Brit Other [employer] Other 05-26-2021 11:00-0500 Body weight 105.69 kg Alicia Brit Other [employer] Other 05-26-2021 11:00-0500 Diastolic blood pressure 80 mm[Hg] Alicia Brit Other [employer] Other 05-26-2021 11:00-0500 Respiratory rate 18 /min Alicia Brit Other [employer] Other 05-26-2021 11:00-0500 SaO2% (BldA) [Mass fraction] 94 % Alicia Brit Other [employer] Other 05-26-2021 11:00-0500 Systolic blood pressure 136 mm[Hg] Alicia Brit Other [employer] Other Encounters Encounter Date Encounter Type Care Provider Facility Start: 06-12-2024 ambulatory Ni OLIVARES [facility] Start: 05-21-2024 End: 05-21-[address] [facility] Start: 12-20-2023 End: 12-20-2023 ambulatory MD Tray Alfaro Work Phone: [facility] Work Phone: Start: 12-20-2023 End: 12-20-2023 Patient encounter procedure MD Tray Alfar[facility] Work Phone: Start: 12-14-2023 Non-patient / Non-visit MD Annalisa Alfaro [facility] Work Phone: Start: 11-01-2023 End: 11-01-2023 ambulatory [facility] Start: 10-26-2023 End: 10-26-2023 ambulatory JENNIFER DRISCOLL Not Available Start: 10-18-2023 End: 10-18-2023 ambulatory MD Tray Alfaro Work Phone: [facility] Work Phone: Start: 10-18-2023 End: 10-18-2023 Departed Referred MD Tray Alfaro Work Phone: [facility] Start: 09-12-2023 End: 09-12-2023 ambulatory JENNIFER DRISCOLL Not Available Start: 08-23-2023 End: 08-23-2023 ambulatory [facility] Start: 07-02-2023 End: 07-02-2023 Patient encounter procedure MD Tray Alfaro Work Phone: [facility] [place] Work Phone: Start: 07-02-2023 End: 07-02-2023 ambulatory MD Tray Alfaro Work Phone: [facility] Work Phone: Start: 06-28-2023 End: 06-28-2023 Patient encounter procedure MD Tray Alfaro Work Phone: [facility] [place] Work Phone: Start: 06-28-2023 End: 06-28-2023 ambulatory MD Tray Alfaro Work Phone: [facility] Work Phone: Start: 06-16-2023 End: 06-16-2023 Patient encounter procedure MD Tray Alfaro Work Phone: [facility] [place] Work Phone: Start: 06-16-2023 End: 06-16-2023 ambulatory MD Tray Alfaro Work Phone: [facility] Work Phone: Start: 06-14-2023 Office outpatient vi sit 25 minutes Alicia Brit [facility] Start: 06-14-2023 End: 06-15-2023 ambulatory Ni OLIVARES [employer] Other Start: 06-14-2023 End: 06-14-2023 Patient encounter procedure Ni OLIVARES [facility] Start: 12-20-2022 End: 12-21-2022 ambulatory Ni OLIVARES [place] Start: 12-20-2022 End: 12-20-2022 Patient encounter procedure Ni OLIVARES [facility] Start: 12-02-2022 End: 12-02-2022 ambulatory Ni OLIVARES [place] Start: 11-29-2022 End: 11-29-2022 ambulatory Alicia Brit Other [employer] Other Start: 11-29-2022 Office outpatient vi sit 25 minutes Alicia Brit [facility] Start: 11-18-2022 End: 11-19-2022 ambulatory MD ALICIA PEREA [place] Start: 11-18-2022 End: 11-19-2022 ambulatory Ni OLIVARES [place] Start: 11-10-2022 End: 11-24-[address] TRAY ALFARO . Facility:[facility] Start: 11-08-2022 End: 11-08-[address] TRAY ALFARO . Facility:[facility] Start: 11-06-2022 End: 11-07-[address] TRAY ALFARO . Facility: Start: 10-29-2022 End: 10-30-2022 ambulatory Milton BRAUN Facility:[facility] Start: 10-29-2022 End: 10-29-2022 Patient encounter procedure Milton BRAUN [facility] Start: 10-26-2022 End: 10-27-2022 ambulatory IRIS CORONEL Facility:[facility] Start: 10-22-2022 End: 10-23-[address] MILTON BRAUN . Facility:[facility] Start: 10-15-2022 End: 10-16-[address] TRAY ALFARO . Facility:[facility] Start: 10-14-2022 End: 10-15-2022 ambulatory IRIS CORONEL Facility: Start: 10-07-2022 End: 10-07-2022 ambulatory Ni OLIVARES [place] Start: 10-07-2022 End: 10-07-2022 Admission to same day surgery center Ni OLIVARES [facility] Start: 09-15-2022 End: 09-15-2022 ambulatory Alicia Brit Other [facility] [employer] Other Start: 09-15-2022 Office outpatient vi sit 25 minutes Alicia Brit [facility] Start: 09-14-2022 End: 09-15-2022 ambulatory iN OLIVARES Facility:[id number] Start: 09-13-2022 End: 09-14-2022 ambulatory ALICIA BRIT Facility:[facility] Start: 09-06-2022 End: 09-07-2022 ambulatory Ni OLIVARES Facility:[facility] Start: 09-06-2022 End: 09-06-2022 Patient encounter procedure Ni OLIVARES [facility] Start: 09-01-2022 End: 09-02-[address] NI OLIVARES Facility:[facility] Start: 08-24-2022 End: 08-25-[address] TRAY ALFARO . Facility:[facility] Start: 08-22-2022 End: 08-22-[address] TRAY ALFARO . Facility:[facility] Start: 08-21-2022 End: 08-22-[address] TRAY ALFARO . Facility:[facility] Start: 08-18-2022 End: 08-19-2022 ambulatory ALICIA BRIT Facility:[facility] Start: 08-16-2022 ambulatory Ni OLIVARES Facility:[facility] Start: 08-11-2022 ambulatory Facility:U Start: 08-11-2022 Patient encounter status MD Iglesias Work Phone: [facility] Start: 08-11-2022 End: 08-15-2022 Encounter for preprocedural cardiovascular examination MD Tray Alfaro Work Phone: [facility] Start: 08-11-2022 End: 08-15-2022 Evaluation and management of inpatient MD Tray Alfaro Work Phone: [facility] Work Phone: Start: 08-11-2022 End: 08-14-2022 ambulatory THADDEUS DAUGHERTY Facility:[facility] Start: 08-02-2022 End: 08-02-[address] TRAY ALFARO . Facility:[facility] Start: 07-08-2022 End: 07-23-[address] TRAY ALFARO . Facility:[facility] Start: 06-01-2022 End: 06-01-2022 ambulatory Alicia Brit Other [employer] Other Start: 06-01-2022 Office outpatient vi sit 25 minutes Alicia Brit [facility] Start: 05-24-2022 End: 11-29-2022 ambulatory ALICIA BRIT Facility:[facility] Start: 02-03-2022 End: 02-04-[address] TRAY ALFARO . Facility:[facility] Start: 11-24-2021 End: 11-24-2021 ambulatory Alicia Brit Other [employer] Other Start: 11-24-2021 Office outpatient vi sit 25 minutes Alicia Brit [facility] Start: 10-26-2021 End: 10-26-2021 Patient encounter procedure Milton BRAUN [facility] Start: 05-26-2021 End: 05-26-2021 ambulatory Alicia Brit Other [employer] Other Start: 05-26-2021 Office outpatient vi sit [...] T SH, LIPID, T4, FT3, CMP #### [facility] [address] [place] [address] Dr. Alicia Patel Start: 10-07-2022 Extracorporeal shock wave lithotripsy of calculus of kidney Ni OLIVARES Start: 08-21-2022 PSA screening ALICIA QAD IR Comment on above: Performed By: #### P SAD #### [facility] [address] [place] [address] Dr. Alicia Patel Start: 08-13-2022 Cystoscopy MD Tray Alfaro Work Phone: Start: 08-11-2022 Plain chest X-ray MD Iglesias Work Phone: Start: 08-01-2019 Transurethral prostatectomy Milton BRAUN Start: 07-04-2019 Biopsy of prostate Rohan BRAUN Start: 06-27-2019 cystoscopy, bilatera l, ureteroscopy, laser lithotripsy Milton BRAUN ear surgery Milton BRAUN ear surgery Ni OLIVARES Plan of Treatment Date Care Activity Detail Author Start: 08-15-2022 [facility] Start: 08-14-2022 Microbial culture of sputum [facility] Start: 08-14-2022 Aerobic Culture Aerobic Culture [facility] Start: 08-14-2022 Investigation of tra nsfusion reaction Gram Stain [facility] Start: 08-11-2022 Hospital admission [facility] Start: 08-11-2022 Referral to baggage agent supervisor [facility] Start: 08-11-2022 Referral to lead java j2ee developer [facility] Start: 08-11-[address] [facility] CT Chest WO contrast [facility] Patient referral [facility] Work Phone: Renal function 1999 panel - Serum or Plasma [facility] Renal function 1999 panel - Serum or Plasma [facility] Immunizations Immunization Date Immunization Notes Care Provider Fa ciliraman 05-02-2023 pneumococcal 20-marco nt conjugate vaccine Ni MARSHALL [facility] 05-02-2023 tetanus toxoid, redu martha diphtheria toxoid, and acellular pertussis vaccine, adsorbed Nichandu OLIVARES [facility] 03-29-2022 SARS-CoV-2 (COVID-19 ) mRNAMUL.ORD![id number] Ni MARSHALL [facility] 05-18-2021 SARS-CoV-2 (COVID-19 ) Ad26 vaccine, recombinant Ni OLIVARES [facility] 03-30-2021 influenza virus vaccine, unspecified formulation Ni OLIVARES [facility] 09-01-2020 SARS-CoV-2 (COVID-19 ) Ad26 vaccine, recombinant Ni OLIVARES [facility] 06-27-2020 SARS-CoV-2 (COVID-19 ) Ad26 vaccine, recombinant Milton BRAUN [facility] 04-18-2020 influenza virus vaccine, unspecified formulation Ni OLIVARES [facility] 02-05-2020 zoster vaccine recombinant [employer] [facility] 12-06-2019 zoster vaccine recombinant [employer] [facility] 04-04-2019 influenza virus vaccine, unspecified formulation Milton BRAUN [facility] 04-05-2017 influenza virus vaccine, unspecified formulation Ni OLIVARES [facility] 04-05-2017 pneumococcal conjuga te vaccine, 13 valent Ni OLIVARES [facility] 04-12-2016 influenza, unspecifi ed formulation Ni OLIVARES [facility] Payers Date Payer Category Payer Self-pay [id number] 1959 Private Health Insurance [id number] [id number] 1959 Private Health Insurance [id number] 1940 Unknown [id number] 2.16.840.1.685424.3.579.2.356 1942 Unknown [id number] 2.16.840.1.230141.3.579.2.593 1942 Unknown [id number] 2.16.840.1.379993.3.579.2.593 1942 Unknown [id number] 2.16.840.1.468671.3.579.2.593 1942 Unknown [id number] 2.16.840.1.932376.3.579.2.593 1942 Unknown [id number] 2.16.840.1.585571.3.579.2.593 1942 Unknown [id number] 2.16.840.1.603442.3.579.2.593 1942 Unknown [id number] 2.16.840.1.022085.3.579.2.593 1942 Unknown [id number] 2.16.840.1.409348.3.579.2.593 1942 Unknown [id number] 2.16.840.1.253117.3.579.2.593 1942 Unknown [id number] 2.16.840.1.542498.3.579.2.593 1942 Unknown [id number] 2.16.840.1.445173.3.579.2.593 1942 Unknown [id number] 2.16.840.1.190732.3.579.2.593 1942 Unknown [id number] 2.16.840.1.446151.3.579.2.593 1942 Unknown [id number] 2.16.840.1.613665.3.579.2.593 1942 Unknown [id number] 2.16.840.1.031785.3.579.2.593 1942 Unknown [id number] 2.16.840.1.547438.3.579.2.593 1942 Unknown [id number] 2.16.840.1.172717.3.579.2.593 1942 Unknown [id number] 2.16.840.1.093357.3.579.2.593 1942 Unknown [id number] 2.16.840.1.358104.3.579.2.593 1942 Unknown [id number] 2.16.840.1.754695.3.579.2.727 1942 Unknown [id number] 2.16.840.1.970468.3.579.2.727 1942 Unknown [id number] 2.16.840.1.091785.3.579.2.727 1942 Unknown [id number] 2.16.840.1.184143.3.579.2.727 1942 Unknown [id number] 2.16.840.1.678873.3.579.2.727 1942 Unknown [id number] 2.16.840.1.142110.3.579.2.727 1942 Unknown [id number] 2.16.840.1.603461.3.579.2.727 1942 Unknown [id number] 2.16.840.1.333949.3.579.2.727 1942 Unknown [id number] 2.16.840.1.921873.3.579.2.727 1942 Unknown [id number] 2.16.840.1.768321.3.579.2.727 1942 Unknown [id number] 2.16.840.1.434818.3.579.2.727 1942 Unknown [id number] 2.16.840.1.521641.3.579.2.1259 1942 Unknown [id number] 2.16.840.1.302918.3.579.2.1259 Medicare [id number] 2.16.8 40.1.272009.19 Medicare Medicare [id number] Medicare [id number] 2.1 6.840.1.541308.19 Unknown Hussein BC/BS [id number] Unknown [id number] 2.16.840.1.695022.3.579.2.531 Unknown [id number] 2.16.840.1.839915.3.579.2.531 Unknown [id number] 2.16.840.1.610454.3.579.2.531 Unknown [id number] 2.16.840.1.852577.3.579.2.531 Social History Date Type Detail Facility Start: 08-18-2020 End: 12-20-2023 Tobacco smoking status Ex-smoker (finding) [employer] Other Comment on above: quit in 1978 Sex Assigned At Male [employer] Other Start: 1940 [address] [facility] Tobacco smoking status Never [facility] Comment on above: quit in 1978 Medical Equipment Procedure Code Equipment Code Equipment Origin al Text Equipment Identifier Dates Cystoscopy, with ureteral calculus manipulation and stent placement Polymeric ureteral stent ()[id number] FDA Start: 06-15-2019 Cystoscopy, with ureteral calculus manipulation and stent placement Polymeric ureteral stent ()[id number] FDA Start: 06-15-2019 Cystoscopy, with ureteral calculus manipulation and stent placement Polymeric ureteral stent ()[id number] FDA Start: 08-13-2022 Biopsy, prostate, with US guidance Polymeric ureteral stent ()[id number] FDA Start: 07-04-2019 CYSTOSCOPY URETEROSCOPY Ni OLIVARES MD 12/02/22 Unknown Ureter R {[id number] FDA Start: 12-02-2022 Goals Date Patient Goal Desired Activity /State Functional Status Date Assessment Result Facility 12-20-2022 Functional Status N/A [facility] 09-06-2022 Functional Status N/A [facility] 08-15-2022 Functional status Patient at Baseline [facility] Work Phone: Mental Status Date Assessment Result Facility 08-15-2022 Cognitive function Cognitive Sta tus Patient at Baseline [facility] Work Phone: Clinical Notes 05-26-2021 to 05-21-2024 Note Date & Type Note Facility 05-21-2024 Note [facility] [facility] Subjective Victorino Smyth is a [...] stent to the LAD at [facility], was on Brilinta but currently [...] Allergies Allergies All (more content not included)... [facility] 11-01-2023 Note Patient here for 3 m [...] All other systems reviewed and are negative. [facility] 11-01-2023 Note Cardiovascular Medic [facility] SUBJECTIVE Chief Complaint Patient presents with [...] stent to the LAD at [facility], was on Brilinta but currently [...] leg: Edema present. (more content not included)... [facility] 08-23-2023 Note Cardiovascular Medic in[facility] SUBJECTIVE No chief complaint on file. Victorino Smyth is a 83 y.o. male here for follow-up. Patient here for 6 mo follow up CAD, hypertension, and hyperlipidemia. He was discharged from [facility] a few weeks ago for Covid-19. [...] stent to the LAD at [facility], was on Brilinta but currently [...] Cardiovascular: Rate an (more content not included)... [facility] 08-23-2023 Note Patient here for 6 m o follow up CAD, hypertension, and hyperlipidemia. He was discharged from [facility] a few weeks ago for Covid-19. Feels much better and is still regaining his strength. Denies chest pain, palpitations, and lightheadedness/syncope. Patient states his BP in the mornings before medications has been running around 100/55. Review of Systems Cardiovascular: Positive for dyspnea on exertion. Musculoskeletal: Positive for arthritis, back pain and joint pain. All other systems reviewed and are negative. 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 [employer] Other 12-19-2023 Hospital Discharge instructions Patient Education [...] include: ?8 oz (237 mL) of milk, gxqyprr-uudvzavktlci-hsqqs milk, and calcium- fortifiedfruit juice. Calcium-fortified means [...] ?Spinach (cooked), rhubarb, beets, sweet potatoes, and Egyptian chard. ?Peanuts. ?Potato chips, citizen of [place] fries, and baked potatoes with skin on. ?Nuts and nut products. ?Chocolate. If you regularly take a diuretic medicine, make sure to eat at least 1 or 2 servings of fruits or vegetables that are high in potassium each day. These include: ?Avocado. ?Banana. ?[place], prune, carrot, or tomato juice. ?Baked potato. [...] magnesium, fish oil, or vitamin B6. Take rvlh-meg-srmwdkz and prescription medicines only as told by [...] Document Reviewed: 09/23/2022 Elsevier Patient Education 2022 [employer]. Follow Up Care 02/04/2023 14:47:08 With:MARSHALL OLIVEROS, Ni Garcia, URL Address: [address] [place] [address] [place], [place] [address]- When: Unknown [facility] [id number] Note [id number]:127[facility] 12-20-2022 NoteCystoscopy with Stent Removal ? [...] if you have a fever over 100 degrees.[facility] 12-20-2022 Hospital Discharge instructions Patient Education [...] With:Ni OLIVARES Address: [address] [place] [address]- Business (1) When:6 months Comments:Call for followup [...] those arrangements as well.Have a great day. [facility]06-05-2023 Evaluation note* Encounter Date Diagnosis Assessment Notes Treatment Notes Treatment Clinical Notes Nov, Diabetes mellitus wi th chronic kidney disease (ICD-10 - E11.22) He has ndm-tydrfjv-ctcy ndent type 2 diabetes and currently takes [...] and has normal B12 and folate level. [employer] Other 05-24-2023 Note [id number]:127[facility] 10-07-2022 Hospital Discharge instructions Patient Education [...] Follow these instructions at home: Medicines Take tnwz-zmv-hslktci and prescription medicines only as told by [...] 07/02/2008 Document Revised: 09/24/2019 Document Reviewed: 05/04/2017 [employer] Patient Education 2020 [employer]. Follow Up Care 09/06/2022 10:38:13 With:Ni OLIVARES Address: [address] [place] [address] [place], [place] [address] Business (1) When: Unknown Comments:We were able [...] prior to considering any other anesthesia procedures. [facility]04-13-2023 Evaluation + Plan noteExtracted from: Title:KALEN post op Author:Timothy Pittman MD Date:10/07/22 Plan Transfer/Discharge: Transfer/Discharge Discharge when meets criteria ( To home ). Extracted from: Title:KALEN GA Author:Timothy Pittman MD S. Date:10/07/22 Plan [place] [employer] Anesthesiologists (ASA) physical status classification: Class III. Anesthetic Preoperative Plan: Anesthesia General. Future Appointments Appointment Date:10/29/2022 08:45:00 AM Scheduled Provider:Milton BRAUN MD Location:[facility] Appointment Type:URO Office Visit [facility]03-23-2023 Note [id number]:127[facility] 09-15-2022 Evaluation note* Encounter Date Diagnosis Assessment Notes Treatment Notes Treatment Clinical Notes Aug, Diabetes mellitus wi th chronic kidney disease (ICD-10 - E11.22) He has wrx-jkhmjse-nvdq ndent type 2 diabetes and currently takes [...] have advised him to adequately hydrate himself. [employer] Other [id number] Hospital Discharge instructions Patient Education 09/06/2022 10:27:16 Kidney Stones, Tkjn-qf-Forh Kidney Stones Kidney stones are rock-like masses [...] Follow these instructions at home: Medicines Take gpuj-dlr-sezlyst and prescription medicines only as told by [...] 11/29/2008 Document Revised: 10/30/2019 Document Reviewed: 10/30/2019 [employer] Patient Education 2019 [employer]. Follow Up Care 08/17/2022 09:18:37 With:MARSHALL OLIVEROS, Ni Garcia, URL Address: [facility] [place] [id number]- When: Unknown [facility] 02-21-2023 Note [id number]:127[facility] 08-15-2022 Discharge summary Author Hiral Interiano [facility] August 15, 2022 1:50pm Note Date/Time August 15, 2022 1:50pm [facility] [address] [place], [place] [id number] Discharge Summary Signed Patient: Victorino Smyth MR#: [id number] : 1940 Acct:[id number] Age/Sex: 82 / M Adm Date: 3 Loc: Room: [address] [place] [address]: Hiral Interiano MD Copies to: [...] history of nephrolithiasis. He initially presented to [facility] ER with complaint of hypoglycemia and was found to have severe renal failure along with metabolic acidosis and hyperkalemia. CT scan at [facility] showed atrophic left kidney with obstructing stone in the right ureteropelvic junction. Patient was transferred to [facility] for further intervention. 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 CT scan at [facility] also showed 0.8 cm nodule on the [...] Low-Cholesterol Additional Instructions: Follow-up with your Primary Train Controller in 4 weeks. Avoid NSAIDs for pain [...] office on Tuesday to schedule follow-up with Sweeper Brush Maker Machine. ) Documented By: Hiral Interiano MD 08/15/22 4054 Signed By: <Electronically signed by Hiral Interiano MD> 08/15/22 2998 [facility] Work Phone: 1(372) 143-514502-19-2023 Progress note Author Alicia Perea [facility] August 15, 2022 12:01pm Note Date/Time August 15, 2022 12:01pm [facility] [address] [place], [place] [address] Nephrology Progress Note Signed Patient: Victorino Smyth MR#: [id number] : 1940 Acct:[id number] Age/Sex: 82 / M Adm Date: 3 Loc: 4N Room: 8G2516-4 Type: ADM IN Attending Dr: Hiral Interiano MD Copies to: ~ Date of Service: 08/15/2022 Subjective Subjective Narrative: This is a 82-year-old male with a medical history of coronary artery disease s/pPCI, nephrolithiasis, CKD, diabetes mellitus, hypertension, dyslipidemia was presented to the emergency room of [facility] for generalized weakness and low urine output. On evaluation emergency room patient was found to have a life- threatening hyperkalemia with serum potassium 7 mmol/L, acute kidney injurywith elevated serum creatinine 17.8 mg/dL, metabolic acidosis serum bicarbonate 13.5 mmol/L. He was given insulin D50 calcium gluconate in the [facility] emergency room. He had a CAT scan abdomen pelvis done which showed obstructive kidney stones in the right UPJ and total atrophy of the left kidney. Case was discussed with the on-call urologist Dr. Olivares and recommended patient needs to be n.p.o. for surgical intervention. He was transferred to [facility] for further care. Patient is history of CKD due to the longstanding DM, HTN and recurrent KELSEA with baseline serum creatinine 1.4 to 1.6 mg/dL. He follows in my office for his CKD care. 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 Musculoskeletal: No joint [...] 10 Mg Tablet) 10 mg PO DAILY [facility] Stop: 08/16/23 08:59 Aspirin (Aspirin 81 Mg Tablet.Dr) 81 mg PO DAILY [facility] Stop: 08/12/23 08:59 Last Admin: 08/15/22 09:45 Dose: 81 mg Atorvastatin Calcium (Atorvastatin 40 Mg Tablet) 40 mg PO HS [facility] Stop: 08/11/23 21:59 Last Admin: 08/14/22 21:08 Dose: 40 mg Dextrose (Dextrose 50% In Water 25 Gm/50 Ml Syringe) 0 gm IV-PUSH PRN PRN PRN Reason: Hypoglycemia Stop: 08/11/23 14:01 Doxycycline Hyclate (Doxycycline Hyclate 100 Mg Tablet) 100 mg PO BID [facility] Stop: 08/18/22 20:59 Last Admin: 08/15/22 09:45 Dose: 100 mg Glucose (Dextrose 40% Gel 15 Gm Tube) 0 gm PO PRN PRN PRN Reason: Hypoglycemia Stop: 08/11/23 14:01 Guaifenesin (Guaifenesin 600 Mg Tab.Er.12h) 1,200 mg PO BID [facility] Stop: 08/12/23 20:59 Last Admin: 08/15/22 [...] Units/3 Ml Insuln.Pen) 0 units SUBCUT TID.WM.HS [facility]; Protocol Stop: 08/11/23 16:59 Last Admin: 08/15/22 09:46 Dose: 5 units Insulin Glargine (Insulin Glargine 300 Units/3 Ml Insuln.Pen) 5 units SUBCUT DAILY [facility] Stop: 08/13/23 08:59 Last Admin: 08/15/22 09:47 Dose: 5 units Melatonin (Melatonin 5 Mg Tablet) 5 mg PO QHS PRN PRN Reason: insomnia Stop: 08/14/23 21:59 Last Admin: 08/14/22 21:08 Dose: 5 mg Metoprolol Tartrate (Metoprolol Tartrate 50 Mg Tablet) 50 mg PO BID [facility] Stop: 08/11/23 20:59 Last Admin: 02/19/23 [...] office. Documented By: Alicia Perea MD 08/15/22 1150 Signed By: <Electronically signed by Alicia Perea MD> 08/15/22 1202 [facility] Work Phone: 1(651) 248-336602-19-2023 Progress note Author Cade Alvarez [facility] August 15, 2022 11:31am Note Date/Time August 15, 2022 11:31am [facility] [address] [place] [address] Cardiology Progress Note Signed Patient: Victorino Smyth MR#: [id number] : 1940 Acct:[id number] Age/Sex: 82 / M Adm Date: 3 Loc: 4N Room: [address] [place] [address] Type: ADM IN Attending Dr: Hiral Interiano [...] patient has cardiology follow-up with his primary baggage agent supervisor in [place] within 4 weeks of discharge. (2) CAD (coronary artery disease): Code(s): I25.10 - Atherosclerotic heart disease of cachil 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 Status: Acute [...] signed by Cade Alvarez MD> 08/15/22 1131 [facility] Work Phone: 1([phone] 136-562102-18-2023 Progress note Author Hiral Interiano [facility] August 14, 2022 2:57pm Note Date/Time August 14, 2022 2:49pm [facility] [address] [place] [address] Hospitalist Progress Note Signed Patient: Victorino Smyth MR#: [id number] : 1940 Acct:[id number] Age/Sex: 82 / M Adm Date: 3 Loc: 4N Room: [address] [place] [address] Type: ADM IN Attending Dr: Hiral Interiano [...] Insuln.Pen SUBCUT 08/11/23 16:59 Not Given TID.WM.HS [facility] Protocol Insulin Glargine 5 units 08/13/22 [...] <Electronically signed by Hiral Interiano MD> 08/14/22 7584 [facility] Work Phone: 1([phone] 175-894202-18-2023 Progress note Author Alicia Perea [facility] August 14, 2022 11:55am Note Date/Time August 14, 2022 11:55am [facility] [address] [place] [address] Nephrology Progress Note Signed Patient: Victorino Smyth MR#: [id number] : 1940 Acct:[id number] Age/Sex: 82 / M Adm Date: 3 Loc: 4N Room: 5M0008-8 Type: ADM IN Attending Dr: Hiral Interiano MD Copies to: ~ Date of Service: 08/14/2022 Subjective Subjective Narrative: This is a 82-year-old male with a medical history of coronary artery disease s/pPCI, nephrolithiasis, CKD, diabetes mellitus, hypertension, dyslipidemia was presented to the emergency room of [facility] for generalized weakness and low urine output. On evaluation emergency room patient was found to have a life- threatening hyperkalemia with serum potassium 7 mmol/L, acute kidney injurywith elevated serum creatinine 17.8 mg/dL, metabolic acidosis serum bicarbonate 13.5 mmol/L. He was given insulin D50 calcium gluconate in the [place] emergency room. He had a CAT scan abdomen pelvis done which showed obstructive kidney stones in the right UPJ and total atrophy of the left kidney. Case was discussed with the on-call urologist Dr. Olivares and recommended patient needs to be n.p.o. for surgical intervention. He was transferred to [facility] for further care. Patient is history of CKD due to the longstanding DM, HTN and recurrent KELSEA with baseline serum creatinine 1.4 to 1.6 mg/dL. He follows in my office for his CKD care. 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 Musculoskeletal: No joint [...] 81 Mg Tablet.Dr) 81 mg PO DAILY [facility] Stop: 08/12/23 08:59 Last Admin: 08/14/22 08:22 Dose: 81 mg Atorvastatin Calcium (Atorvastatin 40 Mg Tablet) 40 mg PO HS [facility] Stop: 08/11/23 21:59 Last Admin: 08/13/22 [...] 5,000 Unit/Ml Vial) 5,000 unit SUBCUT Q8HR [facility] Stop: 08/12/23 21:59 Last Admin: 08/14/22 06:05 Dose: Not Given Hydralazine HCl (Hydralazine 20 Mg/Ml Vial) 10 mg IV-PUSH Q4H PRN PRN Reason: Hypertension Stop: 08/11/23 13:40 Last Admin: 08/14/22 05:44 Dose: 10 mg Ceftriaxone Sodium (Rocephin) 1 gm in 50 mls @ 100 mls/hr IV Q24H [facility] Stop: 08/14/22 14:14 Last Admin: 08/13/22 15:07 Dose: 100 mls/hr Sodium Chloride (0.9% Sodium Chloride 1,000 Ml) 1,000 mls @ 0 mls/hr MISCELLANE.Q0M PRN PRN Reason: Dialysis Stop: 08/11/23 14:19 Last Infusion: 08/12/22 12:38 Dose: Infused Insulin Aspart (Insulin Aspart 300 Units/3 Ml Insuln.Pen) 0 units SUBCUT TID.WM.HS [facility]; Protocol Stop: 08/11/23 16:59 Last Admin: 08/14/22 11:50 Dose: Not Given Insulin Glargine (Insulin Glargine 300 Units/3 Ml Insuln.Pen) 5 units SUBCUT DAILY [facility] Stop: 08/13/23 08:59 Last Admin: 08/13/22 08:45 Dose: Not Given Metoprolol Tartrate (Metoprolol Tartrate 50 Mg Tablet) 50 mg PO BID [facility] Stop: 08/11/23 20:59 Last Admin: 08/14/22 [...] Perez Jr. DManoharOManohar08/13/2022 2:25 PM Dictation Location: [place] [address] Any impression(s) listed above is documentation that [...] <Electronically signed by Alicia Perea MD> 08/14/22 1152 [facility] Work Phone: [phone] 365-320802-18-2023 Progress note Author Cade Alvarez [facility] August 14, 2022 11:21am Note Date/Time August 14, 2022 11:21am [facility] [address] [place] [address] Cardiology Progress Note Signed Patient: Victorino Smyth MR#: [id number] : 1940 Acct:[id number] Age/Sex: 82 / M Adm Date: 3 Loc: 4N Room: [address] [place] [address] Type: ADM IN Attending Dr: Hiral Interinao MD Copies to: ~ Date of Service: [...] % (Auto) 79.6 Lymph % (Auto) 7.8 Motley % (Auto) 11.4 Eos % (Auto) 1.0 Baso % (Auto) 0.2 Nucleat RBC Rel Count 0.1 Neut # (Auto) 5.9 Lymph # (Auto) 0.6 L Motley # (Auto) 0.8 Eos # (Auto) 0.1 [...] MPV Neut % (Auto) Lymph % (Auto) Motley % (Auto) Eos % (Auto) Baso % (Auto) Nucleat RBC Rel Count Neut # (Auto) Lymph # (Auto) Motley # (Auto) Eos # (Auto) Baso # [...] make sure that he has follow-up in [facility] within 4 weeks of discharge. (2) CAD (coronary artery disease): Assessment/Problem Details: Stable/quiescent. No ischemic complications with yesterday's urological procedure. Code(s): I25.10 - Atherosclerotic heart disease of cachil 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 Status: Acute Plan: Medical recommendations as above. Plan Thank you very much for this kind consultation and for allowing us to participate in the care of this very pleasant patient Time spent with patient Time Spent With Patient (min): 30 Documented By: Cade Alvarez MD 08/14/22 1118 Signed By: <Electronically signed by Cade Alvarez MD> 08/14/22 1121 [facility] Work Phone: [phone] Progress note Author Hiral Interiano [facility] August 13, 2022 3:09pm Note Date/Time August 13, 2022 3:02pm [facility] [address] [place] [address] Hospitalist Progress Note Signed Patient: Victorino Smyth MR#: [id number] : 1940 Acct:[id number] Age/Sex: 82 / M Adm Date: 3 Loc: 4N Room: [address] [place] [address] Type: ADM IN Attending Dr: Hiral Interiano [...] Insuln.Pen SUBCUT 08/11/23 16:59 Not Given TID.WM.HS [facility] Protocol Insulin Glargine 5 units 08/13/22 [...] signed by Hiral Interiano MD> 08/13/22 1509 [facility] Work Phone: [phone] Progress note Author Alicia Perea [facility] August 13, 2022 11:29am Note Date/Time August 13, 2022 11:25am [facility] [address] [place] [address] Nephrology Progress Note Signed Patient: Victorino Smyth MR#: [id number] : 1940 Acct:[id number] Age/Sex: 82 / M Adm Date: 3 Loc: Room: [address] [place] [address] Type: ADM IN Attending Dr: Hiral Interiano MD Copies to: ~ Date of Service: 08/13/2022 Subjective Subjective Narrative: This is a 82-year-old male with a medical history of coronary artery disease s/pPCI, nephrolithiasis, CKD, diabetes mellitus, hypertension, dyslipidemia was presented to the emergency room of [facility] for generalized weakness and low urine output. On evaluation emergency room patient was found to have a life- threatening hyperkalemia with serum potassium 7 mmol/L, acute kidney injurywith elevated serum creatinine 17.8 mg/dL, metabolic acidosis serum bicarbonate 13.5 mmol/L. He was given insulin D50 calcium gluconate in the [place] emergency room. He had a CAT scan abdomen pelvis done which showed obstructive kidney stones in the right UPJ and total atrophy of the left kidney. Case was discussed with the on-call urologist Dr. Olivares and recommended patient needs to be n.p.o. for surgical intervention. He was transferred to [facility] for further care. Patient is history of CKD due to the longstanding DM, HTN and recurrent KELSEA with baseline serum creatinine 1.4 to 1.6 mg/dL. He follows in my office for his CKD care. 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 Musculoskeletal: No joint [...] 81 Mg Tablet.) 81 mg PO DAILY [facility] Stop: 08/12/23 08:59 Last Admin: 08/13/22 08:44 Dose: Not Given Atorvastatin Calcium (Atorvastatin 40 Mg Tablet) 40 mg PO HS [facility] Stop: 08/11/23 21:59 Last Admin: 08/12/22 [...] 50 mls @ 100 mls/hr IV Q24H [facility] Last Admin: 08/12/22 16:24 Dose: 100 mls/hr Azithromycin (Zithromax) 500 mg in 250 mls @ 250 mls/hr IV Q24H [facility] Last Admin: 08/12/22 15:06 Dose: 250 mls/hr Sodium Chloride (0.9% Sodium Chloride 1,000 Ml) 1,000 mls @ 0 mls/hr MISCELLANE.Q0M PRN PRN Reason: Dialysis Stop: 08/11/23 14:19 Last Infusion: 08/12/22 12:38 Dose: Infused Insulin Aspart (Insulin Aspart 300 Units/3 Ml Insuln.Pen) 0 units SUBCUT TID.WM.HS [facility]; Protocol Stop: 08/11/23 16:59 Last Admin: 08/13/22 08:44 Dose: Not Given Insulin Glargine (Insulin Glargine 300 Units/3 Ml Insuln.Pen) 5 units SUBCUT DAILY [facility] Stop: 08/13/23 08:59 Last Admin: 08/13/22 08:45 Dose: Not Given Metoprolol Tartrate (Metoprolol Tartrate 50 Mg Tablet) 50 mg PO BID [facility] Stop: 08/11/23 20:59 Last Admin: 08/13/22 [...] signed by Alicia Perea MD> 08/13/22 1129 [facility] Work Phone: [phone] Progress note Author Cade Alvarez [facility] August 13, 2022 9:40am Note Date/Time August 13, 2022 9:35am [facility] [address] [place] [address] Cardiology Progress Note Signed Patient: Victorino Smyth MR#: [id number] : 1940 Acct:[id number] Age/Sex: 82 / M Adm Date: 3 Loc: Room: [address] [place] [address] Type: ADM IN Attending Dr: Hiral Interiano [...] MPV Neut % (Auto) Lymph % (Auto) Motley % (Auto) Eos % (Auto) Baso % (Auto) Nucleat RBC Rel Count Neut # (Auto) Lymph # (Auto) Motley # (Auto) Eos # (Auto) Baso # [...] RNA (PCR) IU/mL N/A 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/A Hepatitis C Interp 08/12/22 08/12/22 08/13/22 19:37 21:06 04:28 Corrected WBC 9.9 Uncorrected WBC Count 9.9 RBC 3.54 L Hgb 11.6 L Hct 34.2 L MCV 96.5 MCH 32.9 MCHC 34.1 RDW 13.7 Plt Count 129 L MPV 8.7 Neut % (Auto) 79.2 Lymph % (Auto) 9.6 Motley % (Auto) 9.8 Eos % (Auto) 0.9 Baso % (Auto) 0.5 Nucleat RBC Rel Count 0.1 Neut # (Auto) 7.8 H Lymph # (Auto) 0.9 L Motley # (Auto) 1.0 H Eos # (Auto) [...] HCV RNA (PCR) IU/mL 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 Plan Thank you very much for this kind consultation and for allowing us to participate in the care of this very pleasant patient Time spent with patient Time Spent With Patient (min): 30 Documented By: Cade Alvarez MD 08/13/22 0934 Signed By: <Electronically signed by Cade Alvarez MD> 08/13/22 0940 [facility] Work Phone: [phone]) 364-331102-16-2023 Progress note Author Hiral Interiano [facility] August 12, 2022 4:04pm Note Date/Time August 12, 2022 4:04pm [facility] [address] [place] [address] Hospitalist Progress Note Signed Patient: Victorino Smyth MR#: [id number] : 1940 Acct:[id number] Age/Sex: 82 / M Adm Date: 3 Loc: Room: [address] [place] [address] Type: ADM IN Attending Dr: Hiral Interiano [...] Insuln.Pen SUBCUT 08/11/23 16:59 Not Given TID.WM.HS [facility] Protocol Metoprolol Tartrate 50 mg 08/11/22 [...] kidney disease: Plan: Patient was transferred from [place] ER when found to have acute kidney [...] acidosis. Documented By: Hiral Interiano MD 08/12/22 1551 Signed By: <Electronically signed by Hiral Interiano MD> 08/12/22 9504 [facility] Work Phone: [phone] Progress note Author Alicia Perea [facility] August 12, 2022 11:29am Note Date/Time August 12, 2022 11:24am [facility] [address] [place] [address] Nephrology Progress Note Signed Patient: Victorino Smyth MR#: [id number] : 1940 Acct:[id number] Age/Sex: 82 / M Adm Date: 3 Loc: Room: [address] [place] [address] Type: ADM IN Attending Dr: Hiral Interiano MD Copies to: ~ Date of Service: 08/12/2022 Subjective Subjective Narrative: This is a 82-year-old male with a medical history of coronary artery disease s/pPCI, nephrolithiasis, CKD, diabetes mellitus, hypertension, dyslipidemia was presented to the emergency room of [facility] for generalized weakness and low urine output. On evaluation emergency room patient was found to have a life- threatening hyperkalemia with serum potassium 7 mmol/L, acute kidney injurywith elevated serum creatinine 17.8 mg/dL, metabolic acidosis serum bicarbonate 13.5 mmol/L. He was given insulin D50 calcium gluconate in the [place] emergency room. He had a CAT scan abdomen pelvis done which showed obstructive kidney stones in the right UPJ and total atrophy of the left kidney. Case was discussed with the on-call urologist Dr. Olivares and recommended patient needs to be n.p.o. for surgical intervention. He was transferred to [facility] for further care. Patient is history of CKD due to the longstanding DM, HTN and recurrent KELSEA with baseline serum creatinine 1.4 to 1.6 mg/dL. He follows in my office for his CKD care. 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 Musculoskeletal: No joint [...] 50 mls @ 100 mls/hr IV Q24H [facility] Last Infusion: 08/11/22 21:49 Dose: Infused Azithromycin (Zithromax) 500 mg in 250 mls @ 250 mls/hr IV Q24H [facility] Last Admin: 08/11/22 16:00 Dose: 250 mls/hr Sodium Chloride (0.9% Sodium Chloride 1,000 Ml) 1,000 mls @ 0 mls/hr MISCELLANE.Q0M PRN PRN Reason: Dialysis Stop: 08/11/23 14:19 Last Admin: 08/12/22 10:24 Dose: 999 mls/hr Insulin Aspart (Insulin Aspart 300 Units/3 Ml Insuln.Pen) 0 units SUBCUT TID..[facility]; Protocol Stop: 08/11/23 16:59 Last Admin: 08/12/22 08:07 Dose: Not Given Metoprolol Tartrate (Metoprolol Tartrate 50 Mg Tablet) 50 mg PO BID [facility] Stop: 08/11/23 20:59 Last Admin: 08/12/22 [...] Rehan Fuentes M.D.08/11/2022 4:10 PM Dictation Location: [place] [address] Any impression(s) listed above is documentation that [...] <Electronically signed by Alicia Perea MD> 08/12/22 1475 [facility] Work Phone: [phone]) [phone] Progress note Author Cade Alvarez [facility] August 12, 2022 10:04am Note Date/Time August 12, 2022 10:05am [facility] [address] [place] [address] Cardiology Progress Note Signed Patient: Victorino Smyth MR#: [id number] : 1940 Acct:[id number] Age/Sex: 82 / M Adm Date: 3 Loc: Room: [address] [place] [address] Type: ADM IN Attending Dr: Hiral Interiano [...] % (Auto) N/A Lymph % (Auto) N/A Motley % (Auto) N/A Eos % (Auto) N/A Baso % (Auto) N/A Nucleat RBC Rel Count N/A Neut # (Auto) N/A Lymph # (Auto) N/A Motley # (Auto) N/A Eos # (Auto) N/A [...] MPV Neut % (Auto) Lymph % (Auto) [place]ley % (Auto) Eos % (Auto) Baso % (Auto) Nucleat RBC Rel Count Neut # (Auto) Lymph # (Auto) Motley # (Auto) Eos # (Auto) Baso # [...] MPV Neut % (Auto) Lymph % (Auto) [place]ley % (Auto) Eos % (Auto) Baso % (Auto) Nucleat RBC Rel Count Neut # (Auto) Lymph # (Auto) Motley # (Auto) Eos # (Auto) Baso # [...] % (Auto) 88.0 Lymph % (Auto) 4.4 Motley % (Auto) 7.4 Eos % (Auto) 0.0 Baso % (Auto) 0.2 Nucleat RBC Rel Count 0.0 Neut # (Auto) 11.8 H Lymph # (Auto) 0.6 L Motley # (Auto) 1.0 H Eos # (Auto) [...] MPV Neut % (Auto) Lymph % (Auto) Motley % (Auto) Eos % (Auto) Baso % (Auto) Nucleat RBC Rel Count Neut # (Auto) Lymph # (Auto) Motley # (Auto) Eos # (Auto) Baso # [...] Code(s): I25.10 - Atherosclerotic heart disease of c[place]il 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 Status: Acute Plan: Preoperative recommendations as above. Plan Thank you very much for this kind consultation and for allowing us to participate in the care of this very pleasant patient Time spent with patient Time Spent With Patient (min): 30 Documented By: Cade Alvarez MD 08/12/22 0959 Signed By: <Electronically signed by Cade Alvarez MD> 08/12/22 1000 [facility] Work Phone: [phone] Consult note Author Alicia Perea [facility] August 11, 2022 5:46pm Note Date/Time August 11, 2022 4:00pm [facility] [address] [place] [address] Nephrology Consult Note Signed with Addenda Patient: Victorino Smyth MR#: [id number] : 1940 Acct:[id number] Age/Sex: 82 / M Adm Date: 3 Loc: Room: [address] [place] [address] Type: ADM IN Attending Dr: Hiral Interiano [...] MD Primary Care Provider: Tray Alfaro MD [facility] Reason for Consult: KELSEA on CKD, hyperkalemia, metabolic acidosis management History of Present Illness: This is a 82-year-old male with a medical history of coronary artery disease s/pPCI, nephrolithiasis, CKD, diabetes mellitus, hypertension, dyslipidemia was presented to the emergency room of [facility] for generalized weakness and low urine output. On evaluation emergency room patient was found to have a life- threatening hyperkalemia with serum potassium 7 mmol/L, acute kidney injurywith elevated serum creatinine 17.8 mg/dL, metabolic acidosis serum bicarbonate 13.5 mmol/L. He was given insulin D50 calcium gluconate in the [place] emergency room. He had a CAT scan abdomen pelvis done which showed obstructive kidney stones in the right UPJ and total atrophy of the left kidney. Case was discussed with the on-call urologist Dr. Olivares and recommended patient needs to be n.p.o. for surgical intervention. He was transferred to [facility] for further care. Patient is history of CKD due to the longstanding DM, HTN and recurrent KELSEA with baseline serum creatinine 1.4 to 1.6 mg/dL. He follows in my office for his CKD care. 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 I consulted the outpatient interviewing clerk for hemodialysis catheter placement which was placed [...] <Electronically signed by Alicia Perea MD> 08/11/22 1610 [facility] Work Phone: [phone] Consult note Author Cade Alvarez [facility] August 11, 2022 4:47pm Note Date/Time August 11, 2022 4:36pm [facility] [address] [place] [address] Cardiology Consult Note Signed Patient: Victorino Smyth MR#: [id number] : 1940 Acct:[id number] Age/Sex: 82 / M Adm Date: 3 Loc: Room: [address] [place] [address] Type: ADM IN Attending Dr: Hiral Interiano [...] syndrome in 2017. Patient initially presented to [place] emergency department complaining of shortness of breath [...] # (Auto) N/A Lymph # (Auto) N/A Motley # (Auto) N/A Eos # (Auto) N/A [...] Code(s): I25.10 - Atherosclerotic heart disease of c[place]il 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 Plan Thank you very much for this kind consultation and for allowing us to participate in the care of this very pleasant patient Documented By: Cade Alvarez MD 08/11/22 1630 Signed By: <Electronically signed by Cade Alvarez MD> 08/11/22 8599 [facility] Work Phone: [phone] Consult note Author Ni Olivares [facility] August 11, 2022 3:24pm Note Date/Time August 11, 2022 3:24pm [facility] [address] [place] [address] Urology Consult Note Signed Patient: Victorino Smyth MR#: [id number] : 1940 Acct:[id number] Age/Sex: 82 / M Adm Date: 3 Loc: Room: [address] [place] [address] Type: ADM IN Attending Dr: Hiral Interiano MD Copies to: MD Ni James MD Mazhar Rahman, MD~ History of Present Illness Consult Details Consult Date: 08/11/2022 Requesting Provider: Hiral Interiano MD HPI: Mr. Smyth is an 82-year-old man transferred [facility] The patient presented with some diffuse abdominal complaints, decreased urine output, and was found to be in profound renal failure with a creatinine of17 and a BUN over 150. He was hyperkalemic and acidotic. He was transferred with plans for the [facility] He essentially has a nonfunctioning atrophic left kidney and a large obstructing stone at the right ureteropelvic junction. Apparently the patient had breakfast in the emergency room prior to transfer to [facility]. He finished breakfast at about [...] P documented by Dr. Interiano earlier today [facility] Vaccinated for COVID-19?: Yes Medical History (Updated [...] % (Auto) N/A, Lymph % (Auto) N/A, Motley % (Auto) N/A, Eos % (Auto) N/A, Baso % (Auto) N/A, Nucleat RBC Rel Count N/A, Neut # (Auto) N/A, Lymph # (Auto) N/A, Motley # (Auto) N/A, Eos # (Auto) N/A, [...] actually worse than that noted at the [facility] at a current level of 7.4. [...] <Electronically signed by MD Ni Olivares> 08/11/22 5188 [facility] Work Phone: 1([phone]) 191-309202-15-2023 History and physical note Author Hiral Interiano [facility] August 11, 2022 2:02pm Note Date/Time August 11, 2022 2:02pm [facility] [address] [place] [address] Hospitalist H&P Signed Patient: Victorino Smyth MR#: [id number] : 1940 Acct:[id number] Age/Sex: 82 / M Adm Date: 3 Loc: Room: [address] [place] [address] Type: ADM IN Attending Dr: Hiral Interiano [...] of nephrolithiasis. Patient has been transferred from [facility] ER for acute kidney injury and [...] repeated labs available in the record from [place] ER. Chest x-ray read as mild bilateral [...] negative unless noted below or in HPI [facility] Medical History (Updated 08/11/22 @ 13:59 by [...] type 2. He has been transferred from [facility] for obstructive uropathy with worsening renal failure [...] <Electronically signed by Hiral Interiano MD> 08/11/22 1405 [facility] Work Phone: 1([phone] [facility]* Encounter Date Diagnosis Assessment Notes Treatment Notes Treatment Clinical Notes May, Diabetes mellitus wi th chronic kidney disease (ICD-10 - E11.22) He has emn-fklksqx-wosv ndent type 2 diabetes and currently takes [...] have advised him to adequately hydrate himself. [employer] Other 08-11-2022 NotePROCEDURE: XR KNEE LT 4V or > COMPARISON: None. HISTORY: Pain of left knee joint FINDINGS: BONES:No acute fracture or dislocation. Minimal degenerative changes. SOFT TISSUES:Negative. No visible soft tissue swelling. EFFUSION:None visible. OTHER: Vascular calcification IMPRESSION: No acute abnormality Electronically authenticated by: TYLER MONSIVAIS Date: 2022-02-04 07:23[facility]05-31-2022 Evaluation note* Encounter Date Diagnosis Assessment Notes Treatment Notes Treatment Clinical Notes October, Diabetes mellitus wi th chronic kidney disease (ICD-10 - E11.22) He has hrl-ygnivca-ggbue dent type 2 diabetes and currently takes [...] slow down the progression of disease. 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 [employer] Other 05-02-2022 Hospital Discharge instructions Follow Up Care 10/26/2021 10:06:54 With:KADE OLIVEROS, Milton R, URL Address: [address] [place] [address]- When: Unknown [facility] 05-02-2022 Hospital Discharge instructions Patient Education 10/26/2021 [...] 06/13/2006 Document Revised: 03/02/2019 Document Reviewed: 05/13/2017 [employer] Patient Education 2020 [employer]. 10/26/2021 09:44:44 Urinary Frequency, Adult Urinary Frequency, [...] to keep your urine pale yellow. ?Take sxsm-mnt-lfkzmtw or prescription medicines. ?Eat foods that are high in fiber, such as beans, whole grains, and fresh fruits and vegetables. ?Limit foods that are high in fat and processed sugars, such as fried or sweet foods. General instructions Take efne-otb-xnoffxr and prescription medicines only as told by [...] the muscles that help control urination. Take qhvc-gjw-zyesuqd and prescription medicines only as told by your health care provider. Contact a health care provider if your symptoms do not improve or get worse. This information is not intended to replace advice given to you by your health care provider. Make sure you discuss any questions you have with your health care provider. Document Released: 04/09/2010 Document Revised: 12/21/2018 Document Reviewed: 12/21/2018 [employer] Patient Education 2020 [employer]. 10/26/2021 09:44:41 Kidney Stones, Zjxk-pe-Nwyx Kidney Stones Kidney stones are rock-like masses [...] Follow these instructions at home: Medicines Take cudk-cfw-hxtjrkr and prescription medicines only as told by [...] 11/29/2008 Document Revised: 10/30/2019 Document Reviewed: 10/30/2019 [employer] Patient Education 2019 [employer]. Follow Up Care 02/23/2021 14:09:11 With:KADE OLIVEROS, Milton Brewer, URL Address: [facility] [address], [place] [address]- When:10/26/2022 [facility] 11-30-2021 Evaluation note* Encounter Date Diagnosis Assessment Notes Treatment Notes Treatment Clinical Notes Apr, Diabetes mellitus wi th chronic kidney disease (ICD-10 - E11.22) He has jiv-hsqpmct-iqmwl dent type 2 diabetes and currently takes [...] have advised him to adequately hydrate himself. [employer] Other Evaluation + Plan note Future Appointments Appointment Date:10/29/2022 08:45:00 AM Scheduled Provider:Milton BRAUN MD Location:[facility] Appointment Type:URO Office Visit [facility] evaluation + Plan note Future Appointments Appointment Date:09/14/2022 07:30:00 AM Scheduled Provider: Location:[facility] Appointment Type:Surgical PAT FT Appointment Date:10/07/2022 12:00:00 PM Scheduled Provider: Location:[facility] Appointment Type:Surgery FT Appointment Date:10/29/2022 08:45:00 AM Scheduled Provider:Milton BRAUN MD Location:[facility] Appointment Type:URO Office Visit [facility] evaluation + Plan note Future Appointments Appointment Date:11/18/2022 10:30:00 AM Scheduled Provider: Location:[facility] Appointment Type:Surgical PAT FT Appointment Date:12/02/2022 11:45:00 AM Scheduled Provider: Location:[facility] Appointment Type:Surgery FT [facility] evaluation + Plan note Future Appointments Appointment Date:06/12/2024 11:00:00 AM Scheduled Provider:Ni OLIVARES MD Location:[facility] Appointment Type:URO Office Visit Future Scheduled Tests Laboratory* Total Protein 24 Hour Urine 02/14/23 [facility] evaluation note* Diagnosis Onset Date Resolution Status Acute kidney injury superimp osed on chronic kidney disease acute Acute kidney insufficiency a cute CAD (coronary artery disease) acute CKD (chronic kidney disease) stage 3, GFR 30-59 ml/min acute Elevated PSA acute Hydronephrosis with ureteral calculus acute Hyperkalemia acute [id number] acute Left renal atrophy acute Metabolic acidosis acute Obstructive nephropathy acut e Preoperative cardiovascular examination acute Right ureteral stone acute 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 Diabetes chronic [facility] Work Phone: Evaluation noteNo assessment information available [facility] Work Phone: Evaluation note* Diagnosis Onset Date Resolution Status Secondary hyperparathyroidism acute CKD (chronic kidney disease) stage 3, GFR 30-59 ml/min chronic [id number] chronic Left renal atrophy chronic Metabolic acidosis chronic 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 [facility] Work Phone: Hispqlf general Narrative - Reported* Type Description Date Medical History DIABETES MELLITUS Medical History CORONARY ARTERY DISEASE Medical History MORBID OSESITY Surgical History HERNEA LOWER RIGHT ABDOMINAL Surgical History HEART ATTACK WITH STENT PLACEME NT IN THE LAD Surgical History KIDNEY STENTS X 2 Surgical History PROSTRATE BIO PAD Surgical History KIDNEY STENTS X2 Surgical History KIDNEY STONE REMOVAL Hospitalization History SEE ABOVE [employer] Other Hisrqee general Narrative - Reported* Type Description Date [...] KIDNEY STONE REMOVAL Hospitalization History SEE ABOVE [employer] Other Hiswesr general Narrative - Reported* Type Description Date [...] KIDNEY STONE REMOVAL Hospitalization History SEE ABOVE [employer] Other history general Narrative - Reported* Type [...] History KELSEA, HYPERKALEMIA, METAB OLIC ACIDOSIS 08/11/2022 [employer] Other Hospital course Narrative No data available for this section [facility] Hospital Discharge instructions Additional Instructions Follow-up with your Primary Train Controller in 4 weeks. Avoid NSAIDs for pain control. Call [facility] Scheduling on Tuesday at [phone] to arrange a follow up CT scan regarding lung nodule in 4 weeks. Maintain occlussive dressing to HD catheter removal site for 48 hours - return to the Emergency Room for oozing or drainage from catheter exit site, noticeable swelling or itching around neck, shortness of breath[facility] Work [facility]: Progress note No data available for this section [facility] Chief Complaint and Reason for Visit Chief Complaint ACUTE RENAL FAILURE Reason for Visit Acute kidney injury superimposed on chronic kidney disease Acute kidney insufficiency CAD (coronary artery disease) CKD (chronic kidney disease) stage 3, GFR 30-59 ml/min Elevated PSA Hydronephrosis with ureteral calculus Hyperkalemia [id number] Left renal atrophy Metabolic acidosis Obstructive nephropathy Preoperative cardiovascular examination Right ureteral stone Type 2 diabetes mellitus with diabetic chronic kidney disease Diabetes Chief Complaint n20.0 Chief Complaint n20.0 N40.1 Chief Complaint n20.0 N40.1 N20.0 Chief Complaint Unknown Chief Complaint Unknown RENAL 6 month f/u Reason for Visit Secondary hyperparat hyroidism CKD (chronic kidney disease) stage 3, GFR 30-59 ml/min [id number] Left renal atrophy Metabolic acidosis Type 2 [...] MD Other Provider Active Jen Tamayo , [facility] Other Provider Active Aaliyah Mitchell MD Other [...] section and content) DATE CREATED AUTHOR 10/03/2022 [facility] DATE CREATED AUTHOR AUTHOR'S ORGANIZ ATION 12/07/2022 [facility] DATE CREATED AUTHOR AUTHOR'S ORGANIZ ATION 07/05/2023 [facility] DATE CREATED AUTHOR AUTHOR'S ORGANIZ ATION 10/27/2023 [facility] DATE CREATED AUTHOR AUTHOR'S ORGANIZ ATION 12/21/2023 [facility] DATE CREATED AUTHOR AUTHOR'S ORGANIZ ATION 05/23/2024 [facility] Goals (unrecognized section and content) Goals [...] BE BASED ON THE PRIMARY CLINICAL RECORDS. [facility] [employer] provides no warranty or guarantee of the accuracy or completeness of information in this document.
== END 2024-06-07 11:57 | disposition home or self-care (01) ==
LOC: RAD 11:58
PROVIDERS: PCP Family Medicine; Visit Provider Family Medicine
DX: M25.572 Pain in left ankle and joints of left foot (principal)
CPT/HCPCS: 73610

== ENCOUNTER 2024-06-11 06:56 | Outpatient (OUT) | payer MEDICARE, SELFPAY ==
--- NOTE | 2024-06-11 | US_ITS ---
The [address] [address] Patient Name: GLADYS SMYTH MRN: [id number] date: 1940 Sex: M Assigned Patient Location: [place] Current Patient Location: [place] Accession/Order Number: [id number] Exam Date: 06/11/2024 07:00 Report Date: 06/11/2024 07:48 At the request of: NI GONZALEZ Procedure: US renal BI EXAMINATION: US renal BI HISTORY: Kidney Stone N20.0 COMPARISON: No relevant comparison available. TECHNIQUE: Ultrasound examination was performed of the bladder. FINDINGS: Right Kidney: Normal in size, contour and cortical echotexture. The cortex measures 1.2 cm. Multiple echogenic foci measuring up to 6 mm, nonobstructing nephrolithiasis. Area of anechoic echogenicity measuring 2.4 cm, simple cysts. No hydronephrosis or solid cortical mass Height: 6.35 cm Length: 12.97 cm Width: 6.83 cm Left Kidney: Normal in size and contour. The cortex is thinned measuring 0.8 cm. No solid cortical mass, hydronephrosis or obstructing nephrolithiasis. Height: 4.71 cm Length: 9.45 cm Width: 3.60 cm Urinary bladder: 87 mL US/US renal BI IMPRESSION: Right nonobstructing nephrolithiasis Left renal cortical atrophy Electronically authenticated by: TYLER MONSIVAIS Date: 06/11/2024 07:48
--- OUTSIDE RECORDS SUMMARY | 2024-06-11 06:59 | XMS_ITS | CCD ---
Author Organization [facility] Inform ion Partnership [facility] Care Team Providers Care Ammunition Storekeeper Name Role Phone Tray Alfaro Primary Care Physician Alicia Perea Unavailable MD Tray Alfaro Primary Care Provider MD Hiral Interiano Admit Provider MD Hiral Interiano Attending Provider ALISHA Mckinleyher Other Provider Unavailable DO Lizzy Lin Other Provider MD Nihraika Elias Other Provider MD Joel Larkin Other Provider MD Isidro Dow Other Provider MD Peter Manuel Other Provider ILA Borges Other Provider MD Peyton Barragan Other Provider MD Myesha Solo Other Provider MD Skinny Kiser Other Provider Belkis [facility] Jen Desir Other Provider MD Aaliyah Mitchell Other Provider MD Alicia Perea Other Provider MD Milton Braun Other Provider MD Ni Olivares Other Provider MD Yogesh Omalley Other Provider MD Kiran Eldridge Jr Other Provider [phone] MD Fátima Ivey Other Provider MD [...] DR FELIZ Consulting Unavailable HOY ., DR FELZI Attending Unavailable HOY ., DR FELIZ Primary [...] NI Garcia Attending Unavailable COOK, DR NI Garica Admitting Unavailable HOY ., DR FELIZ Consulting [...] Unavailable MD Tray Alfaro Primary Care Provider [phone] MD Ni Olivares Attending Provider Ni OLIVARES [...] Unavailable MD Tray Alfaro Primary Care Provider [phone] NON STAFF Attending Provider Unavailable JENNIFER DRISCOLL Attending Unavailable JENNIFER DRISCOLL Attending Unavailable Ni Olivares Admitting Unavailable Tray Alfaro Primary Care Unavailable Ni Olivares Attending Unavailable Trya Alfaro Primary Care Unavailable Ni Olivares Attending [...] Eruption of skin (disorder) [facility] (13 sources) Penicillin; Translations: [penicillin] Drug Allergy Eruption of skin (disorder) [facility] Other (6 sources) Ciprofloxacin Drug Allergy Unknown [facility] Other (9 sources) Penicillins; Translations: [Penicillins] Allergy to substance 06-14-20 [facility] (1 source) Ciprofloxacin Drug Allergy 03-10-20 [facility] Repository (3 sources) levothyroxine; Translations: [levothyroxine] Drug Allergy Swelling of oral cavity structure (finding) [facility] (3 sources) liothyronine; Translations: [liothyronine] Drug Allergy Swelling of oral cavity structure (finding) [facility] (1 source) No Known Medication Allergies; Translations: [No Known Medication Allergies] Propensity to adverse reactions (disorder) [facility] Repository (1 source) Ciprofloxacin Drug Allergy 06-14-20 [facility] Repository Medications Current Medications Medication Drug Class(es) Dates Sig (Normalized) Sig (Original) acetaminophen 325 mg / HYDROcodone bitartrate 5 mg oral tablet (1 source) Opioid Agonist Start: 10-07-2022 End: 10-09-2022 acetaminophen-hyd rocodone 325 mg-5 mg oral tablet 1 tab(s), Oral, q4hr Pain for 2 day(s), 7 tab(s), Refill(s) 0, [id number], 175, cm, 09/15/22 5:20:00 EDT, Height/Length Dosing, 114, kg, 09/15/22 5:20:00 EDT, Weight Dosing Start Date: 10/07/22 Stop Date: 10/09/22 Status: Ordered [id number] 200 actuat albuterol 0.09 mg/actuat metered dose [...] afterwards, # 2 cap(s), Refills(s) 0, Pharmacy: [facility] [place] [id number], 177, cm, 11/18/22 13:54:00 EDT, Height/Length Dosing, [...] Oral, Daily Start Date: 04/10/19 Status: Ordered Xxgu-Myoza-Fjf-D3-Hyal-Wiley B or (1 source) Start: 12-20-2023 take 1 tablet by mouth twice daily Civi-Lgkzr-Lxk-D3-Hyal-Wiley Bor Active 1 TAB PO Twice daily [...] 12:00am Start: 11-18-2022 take 1 tablet by delemr th once daily ranolazine 500 mg oral [...] activity, # 30 tab(s), Refills(s) 2, [facility], 174, cm, 08/18/20 12:16:00 EST, Height/Length [...] 1 puff(s) by inhalation once daily Tiotropium [place] (Spiriva Respimat) 2.5 mcg/actuation mist Active 2 [...] Coronary arteriosclerosis; Translations: [Atherosclerotic heart disease of tangirnaq coronary artery without angina pectoris] Onset: 3 [...] Onset: 08-25-2022 Episodic Other aftercare (1 source) terminal operations supervisor (current) use of aspirin; Translations: [MCFP CURRENT USE OF ASPIRIN] Onset: 08-13-2022 Episodic Other aftercare (1 source) Other exterminator (current) drug therapy; Translations: [OTH HAND DRAWER IN CURRENT DRUG THERAPY] Onset: 08-13-2022 Episodic Other [...] Range Facility Office Visiton 05-21-2024 Follow-up visit [id number] Ruben Smyth 1940 M Date Provider Department Center 05/21/2024 JENNIFER SMITH [facility] Family History Problem Relation Age of Onset No Known Problems Mother No Known Problems Father Family Status - Relation Status Age at Mother Father Level of Service:03956 OR OFFICE/OUTPATIENT ESTABLISHED LOW MDM 20 MIN Normal [facility] Erythrocyte distribution wid th Auto (RBC) [Ratio]on 12-14-2023 Erythrocyte distribution width (RBC) [Ratio] 12.9 % 11.0-15.0 [facility] Estimated glomerular filtrat ion rate (GFR) non- Americanon 12-14-2023 GFR/1.73 sq M.predicted among non-blacks MDRD (S/P/Bld) [Vol rate/Area] 35 mL/min/{1.73_m2} >=60 [facility] Hematocrit Auto (Bld) [Volum e fraction]on 12-14-2023 Hematocrit (Bld) [Volume fraction] 41.9 % 42.0-54.0 [facility] Hemoglobin [Mass/volume] in Bloodon 12-14-2023 Hemoglobin (Bld) [Mass/Vol] 14.0 g/dL 14.0-18.0 [facility] Iron binding capacity [Mass/ volume] in Serum or Plasmaon 12-14-2023 Iron binding capacity [Mass/Vol] 279.0 ug/dL 250.0-450. 0 [facility] Iron saturation [Mass Fracti on] in Serum or Plasmaon 12-14-2023 Iron saturation [Mass fraction] 36.2 % [facility] Laboratory - Chemistry and C hemistry - challengeon 12-14-2023 Albumin [Mass/Vol] 3.3 g/dL 3.4-5.0 [facility] Calcium [Mass/Vol] 8.5 mg/dL 8.5-10.1 [facility] Chloride [Moles/Vol] 106 mmol/L 98-107 [facility] CO2 [Moles/Vol] 24.0 mmol/L 21.0-32.0 [facility] Creatinine [Mass/Vol] 1.84 mg/dL 0.70-1.30 [facility] Ferritin [Mass/Vol] 111.0 ng/mL 26.0-388.0 [facility] GFR/1.73 sq M.predicted MDRD (S/P/Bld) [Vol rate/Area] 43 mL/min/{1.73_m2} >=60 [facility] Glucose [Mass/Vol] 155 mg/dL 74-106 [facility] Iron [Mass/Vol] 101.0 ug/dL 65.0-175.0 [facility] Magnesium [Mass/Vol] 1.7 mg/dL 1.8-2.4 [facility] Potassium [Moles/Vol] 4.6 mmol/L 3.5-5.1 [facility] Sodium [Moles/Vol] 140 mmol/L 136-145 [facility] Urate [Mass/Vol] 6.4 mg/dL 3.5-7.2 [facility] Urea nitrogen [Mass/Vol] 21.0 mg/dL 7.0-18.0 [facility] Urea nitrogen/Creatinine [Mass ratio] 11.4 mg/mg [facility] Bilirubin Ql (U) Negative NEGATIVE [facility] Glucose (U) [Mass/Vol] Negative NEGATIVE [facility] Ketones Ql (U) Negative NEGATIVE [facility] pH (U) 5.5 [pH] 5.0-9.0 [facility] Specific gravity (U) [Rel density] 1.015 1.005-1.02 5 [facility] Urobilinogen Qn (U) 0.2 {Wil'U}/dL 0.2-1.0 [facility] Laboratory - Specimen inform ationon 12-14-2023 Appearance (U) CLEAR CLEAR [facility] Color (U) YELLOW YELLOW [facility] Laboratory - Urinalysison Leukocyte esterase Test strip Ql (U) Negative NEGATIVE [facility] Mucus Ql (Urine sed) NONE SEEN NONE SEEN [facility] Nitrite Ql (U) Negative NEGATIVE [facility] Protein (U) [Mass/Vol] 10.9 mg/dL <=11.9 [facility] Protein Ql (U) Negative NEG/TRACE [facility] Leukocytes [#/volume] correc ike for nucleated erythrocytes in Blood by Automated counon 12-14-2023 WBC corrected for nucl RBC Auto (Bld) [#/Vol] 6.2 10 3/uL 4.0-11.0 [facility] MCH Auto (RBC) [Entitic mass ]on 12-14-2023 MCH (RBC) [Entitic mass] 33.7 pg 25.9-34.0 [facility] MCHC Auto (RBC) [Mass/Vol]on 12-14-2023 MCHC (RBC) [Mass/Vol] 33.4 g/dL 29.9-35.2 [facility] MCV Auto (RBC) [Entitic vol] on 12-14-2023 MCV (RBC) [Entitic vol] 101.0 fL 80.0-94.0 [facility] No Panel Informationon 12-13 25-Hydroxy Vitamin D Total 66.1 ng/mL [facility] Comment on above: <20 ng/mL Vit D defi cient20-<30 ng/mL Vit D lkqcteuqryhr98-354 ng/mL Vit D sufficient>100 ng/mL Potential Toxicity Parathyroid Hormone (Intact) 50 pg/mL 15-65 [facility] Comment on above: Performed at: - [address] [id number] Director: Lee Bob PhD, Phone: [phone] Phosphorus Level 3.5 mg/dL 2.6-4.7 [facility] Urine Bacteria NONE SEEN #/HPF NONE SEEN [facility] Urine Occult Blood Negative NEGATIVE [facility] Urine Other Casts NONE SEEN #/LPF NONE SEEN [facility] Urine Other Crystals None Seen #/HPF None Seen [facility] Urine Random Creatinine 71.05 mg/dL 20.00-300. 00 [facility] Urine RBC NONE SEEN #/HPF 0-2 [facility] Urine Squamous Epithelial Cells RARE #/LPF NONE/RARE [facility] Urine WBC NONE SEEN #/HPF NONE SEEN [facility] Platelet mean volume Auto (B ld) [Entitic vol]on 12-14-2023 Platelet mean volume (Bld) [Entitic vol] 11.2 fL 9.5-13.5 [facility] Platelets Auto (Bld) [#/Vol] on 12-14-2023 Platelets (Bld) [#/Vol] 168 10 3/uL 150-450 [facility] RBC Auto (Bld) [#/Vol]on RBC (Bld) [#/Vol] 4.15 10 6/uL 4.70-6.10 [facility] Serum or plasma anion gap de terminationon 12-14-2023 Anion gap [Moles/Vol] 14.6 mmol/L [facility] Urine protein/creatinine rat ioon 12-14-2023 Protein/Creatinine (U) [Ratio] 0.15 [facility] Office Visiton 11-01-2023 Follow-up visit [id number] Ruben Smyth 1940 M Date Provider Department Center 11/01/2023 ISRA HICKS [facility] Family History Problem Relation Age of Onset No Known Problems Mother No Known Problems Father Family Status - Relation Status Age at Mother Father Level of Service:02272 OR OFFICE/OUTPATIENT ESTABLISHED MOD MDM 30 MIN Reason for Visit and Comments: Coronary Artery Disease [187] Hypertension [593547] Normal [facility] Daniel 10-18-2023 L Specimen: [id number] Received: 10/19/23 Status: HIMANSHU Sorensentimothy Num: [id number] Spec Type: Surgical Subm Dr: EMELY STAFF Tissues: A Colon Biopsy (DESC POLYP AT 50 CM) Procedures: HE/2, Gross/Micro L4 Age/ Patient Sex Location Account Attending Physician HajaVictorino M 83/M LABELL [id number] NON STAFF SPEC NUM: [id number] RECD: 10/19/23 STATUS: HIMANSHU WILLIAMSON NUM: [id number] HYUN: 10/18/[address]: EMELY STAFF ENTERED: 10/19/[address]: Charito,Lab SPEC TYPE: Surgical DEPT: MIO JOSEHP ORDERED: HE/2, Gross/Micro L4 ORDERED: HE/2, Gross/Micro [...] colon polyp at 50 cm CPT Codes 20559 Specimen: [id number] Received: 10/19/23 Status: HIMANSHU Williamson Num: [id number] Spec Type: Surgical Subm Dr: EMELY STAFF Tissues: A Colon Biopsy (DESC POLYP AT 50 CM) Procedures: HE/2, Gross/Micro L4 Patient: Victorino Smyth [id number] (Continued) Signed (signature on file) Ana Villegas MD 10/20/23 1637 Normal [facility] 36on 09-06-2023 36 Blood pressure is lo oking better. Continue to hold amlodipine. Thanks! Normal [facility] 37on 08-23-2023 37 *Stop Amlodipine. *We will call you in 1 week to check in on your blood pressure readings. [facility] Office Visiton 08-23-2023 Follow-up visit [id number] Ruben Smyth 1940 M Date Provider Department Center 08/23/2023 Komal-ISRA GAYLE CARD [facility] Family History Problem Relation Age of Onset No Known Problems Mother No Known Problems Father Family Status - Relation Status Age at Mother Father Level of Service:27402 OR OFFICE/OUTPATIENT ESTABLISHED MOD MDM 30 MIN Normal [facility] Lab Reportson 07-05-2023 Lab Reports [id number]#1.00TIFF Normal [facility] Lab Reports [id number]#1.00TIFF Normal [facility] Calcium [Mass/volume] in Ser um or PlasmaOrdered By: Ni Olivares on 07-02-2023 Calcium [Mass/Vol] 8.8 mg/dL Normal 8.6-10.3 [facility] Comment on above: Performed By: #### U THUY, CA, CREAT, BUN, PTH, LYTES #### [facility] [address] Carbon dioxide, total [Moles /volume] in Serum or PlasmaOrdered By: Ni Olivares on 07-02-2023 CO2 [Moles/Vol] 24.0 mmol/L Normal 21.0-31.0 [facility] Comment on above: Performed By: #### U THUY, CA, CREAT, BUN, PTH, LYTES #### [facility] [address] [place] [address] [place] Chloride [Moles/volume] in S paty or PlasmaOrdered By: Ni Olivares on 07-02-2023 Chloride [Moles/Vol] 107 mmol/L Normal 98-107 [facility] Comment on above: Performed By: #### U THUY, CA, CREAT, BUN, PTH, LYTES #### [facility] [address] [place] [address] [place] Creatinineon 07-02-2023 GFR/1.73 sq M.predicted MDRD (S/P/Bld) [Vol rate/Area] 32.151 mL/min/{1.73_m2} Normal [facility] Comment on above: Performed By: #### U THUY, CA, CREAT, BUN, PTH, LYTES #### [facility] [address] [place] [address] [place] Creatinine [Mass/volume] in Serum or PlasmaOrdered By: Ni Olivares on 07-02-2023 Creatinine [Mass/Vol] 2.05 mg/dL High 0.70-1.30 [facility] Comment on above: Performed By: #### U THUY, CA, CREAT, BUN, PTH, LYTES #### [address] No Panel InformationOrdered By: Ni Olivares on 07-02-2023 Estimated GFR (CKD-EPI) 32.151 mL/Min [facility] Creatinine Clearance (Chem N/A [facility] Parathyrin.intact [Mass/volu me] in Serum or PlasmaOrdered By: Ni Olivares on 07-02-2023 Parathyrin.intact [Mass/Vol] 55.4 pg/mL [facility] Parathyroid Hormone Intacton 07-02-2023 Parathyroid Hormone Intact 55.4 pg/mL Normal [facility] Comment on above: Result Comment: PERF ORMED BY: [place] [address] PATHOLOGIST POURED CONCRETE WALL TECHNICIAN DIANDRA LACY M.D. Performed By: #### U THUY, CA, CREAT, BUN, PTH, LYTES #### [address] Potassium [Moles/volume] in Serum or PlasmaOrdered By: Ni Olivares on 07-02-2023 Potassium [Moles/Vol] 5.0 mmol/L Normal 3.5-5.1 [facility] Comment on above: Performed By: #### U THUY, CA, CREAT, BUN, PTH, LYTES #### [address] Serum or plasma anion gap de terminationOrdered By: Ni Olivares on 07-02-2023 Anion gap [Moles/Vol] 12.0 mmol/L Normal 6.0-15.0 [facility] Comment on above: Performed By: #### U THUY, CA, CREAT, BUN, PTH, LYTES #### [address] Sodium [Moles/volume] in Ser um or PlasmaOrdered By: Ni Olivares on 07-02-2023 Sodium [Moles/Vol] 138 mmol/L Normal 136-145 [facility] Comment on above: Performed By: #### U THUY, CA, CREAT, BUN, PTH, LYTES #### [address] Urate [Mass/volume] in Serum or PlasmaOrdered By: Ni Marshall on 07-02-2023 Urate [Mass/Vol] 8.2 mg/dL High 4.4-7.6 [facility] Comment on above: Result Comment: PERF ORMED BY: [place] [address] PATHOLOGIST POURED CONCRETE WALL TECHNICIAN DIANDRA LACY M.D. Performed By: #### U THUY, CA, CREAT, BUN, PTH, LYTES #### [address] Urea nitrogen [Mass/volume] in Serum or PlasmaOrdered By: Ni Olivares on 07-02-2023 Urea nitrogen [Mass/Vol] 31 mg/dL High 7-25 [facility] Comment on above: Performed By: #### U THUY, CA, CREAT, BUN, PTH, LYTES #### [address] Lab Reportson 07-01-2023 Lab Reports [id number]#1.00TIFF Normal [facility] PSA Total (Not a Screen)on 0 06-28-2023 PSA Total (Not a Screen) 4.730 ng/mL High 0.000-4.00 0 [facility] Comment on above: Result Comment: Seri al tumor marker results determined by assays using different manufacturers or methods may not be comparable. [facility] Laboratory charge poster and method: Streem DXI, CHEMILUMINESCENT IMMUNOASSAY. PERFORMED BY: [place] [address] PATHOLOGIST POURED CONCRETE WALL TECHNICIAN DIANDRA LACY M.D. Performed By: #### P SATOTAL #### [place] [address] [facility] Prostate specific Ag [Mass/v olume] in Serum or PlasmaOrdered By: Ni Olivares on 06-28-2023 Prostate specific Ag [Mass/Vol] 4.730 ng/mL 0.000-4.00 0 [facility] Comment on above: Serial tumor marker results determined by assays using different manufacturers or methods may not be comparable.[facility] charge poster and method:Intilery.comEL DXI, CHEMILUMINESCENT IMMUNOASSAY. RAD - Ultrasound Reporton RAD - Ultrasound Report [id number]#1.00TIFF Normal [facility] Lab Reportson 06-16-2023 Lab Reports [id number]#1.00TIFF Normal [facility] Lab Reports [id number]#1.00TIFF Normal [facility] Lab Reports [id number]#1.00TIFF Normal [facility] Screenson 06-16-2023 Screens [id number]#1.00TIFF Normal [facility] US renal BIon 06-16-2023 US renal BI [facility] Main [place] [address] [place] [id number] Ultrasound Report Signed Patient: Victorino Smyth MR#: [id number] : 1940 Acct:[id number] Age/Sex: 82 / M ADM Date: 06/16/23 Loc: Room: Type: [facility] Attending Dr: Ni Olivares MD Ordering Provider: [...] Rehan Fuentes M.D.06/16/2023 4:02 PM Dictation Location: [place] [address] Tech: Sue Chiu Transcribed By: [facility] 06/16/23 1602 Dictated By: Rehan Fuentes DO 06/16/23 1559 Signed By: 06/16/23 1602 Normal [facility] Ambulatory Visit Summaryon 1 08-15-2022 Ambulatory Visit Summary VICTORINO SMYTH :1940 Visit Date:06/14/2023 Ambulatory Visit Instructions Your Diagnosis Kidney stone BPH with urinary obstruction Prostate cancer Tests Performed Urnls Dip Stick Auto w/o Microscopy POC 19181 US Renal -- Results Pending -- Please [...] with MARSHALL OLIVEROS, BHUPINDER Merritt When: Where: [facility] [employer] [place] [address]- Medications What How Much When Instructions Unchanged [...] concerns Unchanged (more content not included)... Normal [facility] Formson 06-14-2023 Forms [id number]#1.00TIFF [facility] Patient Educationon 06-14-20 23 Patient Education [...] ? 8 oz (237 mL) of milk, tpnsuky-oepcixdvprnm-luuip milk, and calcium-fortifiedfruit juice. Calcium-fortified means that [...] Spinach (cooked), rhubarb, beets, sweet potatoes, and Turkmen chard. ? Peanuts. ? Potato chips, nigerien fries, and baked potatoes with skin on. ? Nuts and nut products. ? Chocolate. ? If you regularly take a diuretic medicine, make sure to eat at least 1 or 2 servings of fruits or vegetables that are high in potassium each day. These include: ? Avocado. ? Banana. ? [place], prune, carrot, or tomato juice. ? Baked [...] fish oil, or vitamin B6. ? Take kakb-yeu-wilvmcw and prescription medicines only as told by your health care provider. These include supplements. What foods sh (more content not included)... Normal [facility] Urology Office/Clinic Noteon 06-14-2023 Urology Office/Clinic Note [...] with voice recognition artificial intelligence software, specifically [employer] and or [employer]. Substitutions may have occurred due to the [...] prostate) TRUS/bx 07/05/[address] Carlisle. Path [place] 6 (3+3) x2 involving 15%. Pt states [...] Information MARSHALL OLIVEROS, Ni Garcia, URL [address] [facility] [address] [place] [address]- Additional Instructions: 1 year Patient Education Dietary [...] with uretera (more content not included)... Normal [facility] Comment on above: Result Comment: Elec tronically Signed By: Ni OLIVARES MD\.br\Date and Time Signed: 06/14/23 09:55 EST\.br\Electronically Co-Signed By: Dahiana Joseph\.br\Date and Time Co-Signed: 06/14/23 09:48 EST\.br\Electronically Co-Signed By: Dahiana Joseph\.br\Date and Time Co-Signed: 06/14/23 09:50 EST Consent for Procedure/Surger yon 12-21-2022 Consent for Procedure/Surgery [id number]#1.00CD:127 Normal [facility] IntraOperative Documentson 0 12-21-2022 IntraOperative Documents [id number]#1.00CD:127 [facility] Consent for Treatmenton 11-26 Consent for Treatment [id number]#1.00CD:127 Normal [facility] Inpatient Patient Summaryon 12-20-2022 Inpatient Patient Summary [address] [address] Clinical Summary Person Information Name: VICTORINO SMYTH Age: 82 Years : 1940 Sex: Male PCP: Tray Alfaro MD Marital Status: Race: White Ethnicity: Non- or Language: Kittitian Visit Id: Visit Reason: RIGHT KIDNEY STONE Speciality: Acuity: Enc Type: Outpatient Med Service: Surgery Arrival: 12/20/2022 15:00:15 Discharge: Dispo Type: Address: [address] [place] [id number] Provider Notes: Diagnosis: Problems Active Flank pain [...] Follow up: With: Address: When: Ni OLIVARES [address] [place] [address], [address], [place] [address] [facility] (1) Within 6 months Comments: Call [...] with Stent Removal Discharge Instructions (Custom) Isamar [facility] Main OR Intraoperative Recor don 12-20-2022 Main OR Intraoperative Record IntraOp Document Type FTURO Summary Primary Physician: Ni OLIVARES MD Finalized Date/Time: 12/20/22 16:29:12 Pt. Name: VICTORINO SMYTH Bryan RuedaB./Sex: 1940 Male Med Rec #: [id number] Physician: Ni OLIVARES MD Financial #: [id number] Pt. Type: O Room/Bed: / Admit/Disch: 12/20/22 [...] Shabnam Garcia Role Performed Surgeon - Primary District Adviser - Primary Scrub - Primary Time In [...] Verified (If Participants Gemma BRITO, Maggie Applicable) Gunajn Garcia, Ana MEADOWS, Shabnam Khanna Time Out [...] 16:24 Maggie Menendez RN 12/20/22 16:29 Normal [facility] Main OR Preoperative Recordo n 12-20-2022 Main OR Preoperative Record Holding Area Document Type FTURO Summary Primary Physician: Ni OLIVARES MD Finalized Date/Time: 12/20/22 15:39:13 Pt. Name: VICTORINO SMYTH Bryan RuedaB./Sex: 1940 Male Med Rec #: [id number] Physician: Ni OLIVARES MD Financial #: [id number] Pt. Type: O Room/Bed: / Admit/Disch: 12/20/22 [...] By: Janay Gonzales RN 12/20/22 15:39 Normal [facility] Operative Reporton Operative Report Patient: SHERYL SMYTH [...] considering a repeat 24-hour urine/metabolic work-up. Normal [facility] Comment on above: Result Comment: Elec tronically Signed By: Ni OLIVARES MD\.br\Date and Time Signed: 12/20/22 16:29 EDT Outpatient Surgery Discharge Instructionon 12-20-2022 Outpatient Surgery Discharge Instruction [place] [id number] Patient Discharge Instructions PERSON INFORMATION Name: VICTORINO [...] up: With: Address: When: Ni OLIVARES [address], [address], [place] [id number] [facility] (1) Within 6 months Comments: Call [...] to serve you. Thank you for choosing [facility] Normal [facility] Postoperative Documentson Postoperative Documents [id number]#1.00CD:127 Normal [facility] [facility] [place] Calculus Analysison 12-09-19 23 Color (Stone) Olsen Invalid Interpretation Code [facility] [place] Comment on above: Performed By: #### 2 [id number] #### [facility] [place] [facility] [address] [place] [address] Composition Comment Invalid Interpretation Code [facility] [place] Comment on above: Result Comment: Perc entage (Represents the % composition) Performed By: #### 2 [id number] #### [facility] [place] [facility] [address] [place] [address] Disclaimer: Comment Invalid Interpretation Code [facility] [place] Comment on above: Result Comment: This test was developed and its performance characteristics determined by [employer]. It has not been cleared or approved by the Food and Drug Administration. Performed at: [facility] [address], [place] [id number] PhD Jarvis Bauman Performed By: #### 2 [id number] #### [facility] [place] [facility] [address] [place] [address] Laboratory comment Dangelo (Report) Comment Invalid Interpretation Code [facility] [place] Comment on above: Result Comment: Padmini gutierrez questions regarding Calculi Analysis contact [facility] at: [phone]. Performed By: #### 2 [id number] #### [facility] [place] [facility] [address] [place] [address] Please Note: Comment Invalid Interpretation Code [facility] [place] Comment on above: Result Comment: Calc salazar report will follow via computer, mail or dimension warehouse supervisor delivery. Performed By: #### 2 [id number] #### [facility] [place] [facility] [address] [place] [address] Size (Stone) [Entitic vol] 3x5 Invalid Interpretation Code [facility] [place] Comment on above: Result Comment: Mult iple pieces received. Dimensions of the largest piece reported. Performed By: #### 2 [id number] #### [facility] [place] [facility] [address] [place] [address] Specimen source subject Nom Comment Invalid Interpretation Code [facility] [place] Comment on above: Result Comment: Righ t Ureter Performed By: #### 2 [id number] #### [facility] [place] [facility] [address] [place] [address] Stone Photo Comment Invalid Interpretation Code [facility] [place] Comment on above: Result Comment: Phot ograph will follow under a separate cover Performed By: #### 2 [id number] #### [facility] [place] [facility] [address] [place] [address] Urate (Stone) [Mass fraction] 100 % Invalid Interpretation Code [facility] [place] Comment on above: Performed By: #### 2 [id number] #### [facility] [place] [facility] [address] [place] [address] Weight (Stone) 131 mg Invalid Interpretation Code [facility] [place] Comment on above: Performed By: #### 2 [id number] #### [facility] [place] [facility] [address] [place] [address] Pre-Certification Formon Pre-Certification Form [id number]#1.00CD:127 [facility] IntraOperative Documentson 0 12-06-2022 IntraOperative Documents [id number]#1.00CD:127 [facility] Consent for Anesthesiaon Consent for Anesthesia [id number]#1.00CD:127 [facility] Discharge Instructionson Discharge Instructions [id number]#1.00CD:127 [facility] IntraOperative Documentson 0 12-03-2022 IntraOperative Documents [id number]#1.00CD:127 [facility] IntraOperative Documents [id number]#1.00CD:127 [facility] Main OR Intraoperative Recor don 12-03-2022 Main OR Intraoperative Record [facility] Preoperative Documentson Preoperative Documents [id number]#1.00CD:127 [facility] Preoperative Documents [id number]#1.00CD:127 [facility] Preoperative Documents [id number]#1.00CD:127 [facility] Progress Note-Physicianon Progress Note-Physician Patient: [...] meets criteria ( To home ). 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 / Confirmed Chronic obstructive pulmonary disease (COPD) / SNOMED CT 29139680 / Confirmed Coronary artery disease / SNOMED CT 27679062 / Confirmed Anticoagulated / SNOMED CT 233723265 / Confirmed Erectile dysfunction / SNOMED CT 7656604550 / Confirmed Flank pain / SNOMED CT 448595296 / Confirmed H/O: hypothyroidism / SNOMED CT 029728091 / Confirmed Hydronephrosis / SNOMED CT 75791361 / Confirmed Hydronephrosis with ureteral calculus / SNOMED CT 3939703339 / Confirmed Hyperlipidemia / SNOMED CT 57977336 / Confirmed Hyperplastic colon polyp / SNOMED CT 7752065249 / Confirmed Hypertension / SNOMED CT 5456084301 / Confirmed Kidney stone / SNOMED CT 314716276 / Confirmed Prostate cancer / SNOMED CT 9486788632 / Confirmed Myocardial infarct / SNOMED CT 59616881 / Confirmed BPH associated with nocturia / SNOMED CT 0054427666 / Confirmed Occult blood in stools / SNOMED CT 66571074 / Confirmed Postprandial diarrhea / SNOMED CT 99216996 / Confirmed Elevated PSA / SNOMED CT 1370954745 / Confirmed Urinary retention / SNOMED CT 662210047 / Confirmed Rheumatoid arthritis / SNOMED CT 617017531 / Confirmed DM (diabetes mellitus), type 2 / SNOMED CT 654478156 / Confirmed Ureteral stone / SNOMED CT 49765364 / Confirmed Histories Procedure history: ESWL of kidney (91989158) on 10/07/2022 at 82 Years. Transurethral resection of prostate (445140986) on 08/01/2019 at 79 Years. Biopsy of prostate (528973316) on 07/04/2019 at 78 Years. cystoscopy, bilateral, ureteroscopy, laser lithotripsy on 06/27/2019 at 78 Years. TRIGGER FINGER RELEASE. Neuroplasty and/or transposition; median nerve at carpal tunnel (73198). Percutaneous transluminal coronary angioplasty; single major coronary artery or branch (67544). Patient has a coronary artery stent (Peri2) [...] adequate air exchange. Cardiovascular: Regular rhythm. Plan [place] [employer] (ASA) physical status classification: Class III. Anesthetic Preoperative Plan: Anesthesia General. Normal [facility] [place] Comment on above: Result Comment: Elec tronically Signed By: Reji Hidalgo DO, Ty Khanna\.br\Date and Time Signed: 12/03/22 08:21 EDT Capillary Glucose POCon Glucose [Mass/Vol] 82 mg/dL Normal 55-99 [facility] [place] Comment on above: Result Comment: Jackelin quach RN/MD Performed By: #### 2 [id number] #### [facility] [place] [facility] [address] [place] [address] Consent for Procedure/Surger yon 12-02-2022 Consent for Procedure/Surgery [id number]#1.00CD:127 Normal [facility] [place] Consent for Treatmenton Consent for Treatment [id number]#1.00CD:127 Normal [facility] [place] Discharge Instructionson Discharge Instructions VICTORINO SMYTH :1940 [...] When: Comments: Call for followup appointment Where: [facility] [address] [address]- Business (1) Medications What How Much When Instructions Next Dose New doxycycline (doxycycline hyclate 100 mg Cap) 1 Capsules By Mouth 2 times a day Duration: 5 Days Pickup at [facility] #10462 Unchanged albuterol (Ventolin Diskus) 2 Puffs Inhalation [...] needed for Itching Pharmacy Information [id number]: [address], [place] [id number] [phone] Allergies ciprofloxacin (Rash) levothyroxine (Mouth swelling) liothyronine (Mouth (more content not included)... Normal [facility] [place] Comment on above: Result Comment: Elec tronically Signed By: Shae BRITO, Jazmin Eli\.br\Date and Time Signed: 12/02/22 12:25 EDT H&P Updateon 12-02-2022 H&P Update [id number]#1.00CD:127 Normal [facility] [place] Inpatient Patient Summaryon 12-02-2022 Inpatient Patient Summary [address] [address] [facility] Clinical Discharge Instructions PERSON INFORMATION Name: VICTORINO SMYTH [facility]#:[id number] PHYSICIANS Admitting Physician: Ni OLIVARES MD Attending Physician: Ni OLIVARES MD PCP: Erum OLIVEROS, Tray Discharge Diagnosis: Comment: PATIENT EDUCATION INFORMATION Instructions: Udeg-Cnnb-tz Utereroscopy,Lithotripsy, Stone Extraction, Stent Placement (Custom) Medication Leaflets: Follow up: With: Address: When: Ni OLIVARES [address] [place] [address], [address], [address] [address] [facility] (1) Comments: Call for followup appointment MEDICATION LIST New Medications [id number], [address], [place] [id number], [phone] doxycycline (doxycycline hyclate 100 mg Cap) 1 [...] apply to chin, and forhead Comment: Isamar [facility] Main OR PACU I Recordon 06-0 Main OR PACU I Record PACU Phase I Docum ent Type FT Summary Primary Physician: Ni OLIVARES MD Finalized Date/Time: 12/02/22 12:58:10 Pt. Name: VICTORINO SMYTH Bryan Chatman./Sex: 1940 Male Med Rec #: [id number] Physician: Ni OLIVARES MD Financial #: [id number] Pt. Type: A Room/Bed: [place] [address] Admit/Disch: 12/02/22 09:31:57 - Institution: Case Times [...] By: Piedad Blanco RN 12/02/22 12:58 Normal [facility] [place] Main OR PACU II Recordon Main OR PACU II Record PACU Phase II Doc ument Type FT Summary Primary Physician: Ni OLIVARES MD Finalized Date/Time: 12/02/22 13:45:57 Pt. Name: SMYTHVICTORINO./Sex: 1940 Male Med Rec #: [id number] Physician: Ni OLIVARES MD Financial #: [id number] Pt. Type: A Room/Bed: [facility] Admit/Disch: 12/02/22 09:31:57 - Institution: Case Times [...] By: Jazmin Kaufman RN 12/02/22 13:45 Normal [facility] [place] Main OR Preoperative Recordo n 12-02-2022 Main OR Preoperative Record PreOp Document Type FT Summary Primary Physician: Ni OLIVARES MD Finalized Date/Time: 12/02/22 11:00:33 Pt. Name: HAJA VICTORINODANYELLE Dubon/Sex: 1940 Male Med Rec #: [id number] Physician: Ni OLIVARES MD Financial #: [id number] Pt. Type: Room/Bed: [facility] Admit/Disch: 12/02/22 09:31:57 - Institution: Case Times [...] By: Soraya Borrego RN 12/02/22 11:00 Normal [facility] Monitor Recordon 12-02-2022 Monitor Record [id number]#1.00CD:127 Normal [facility] [place] Monitor Record [id number]#1.00CD:127 Normal [facility] [place] Operative Reporton 3 Operative Report Patient: SHERYL [...] jelly placed per urethra. A well-lubricated 22 Serbian is urethroscope with 30 degree lens then [...] backloaded over the wire and a 4.7 Serbian Bard inlay double-J stent is passed into [...] ml. Complications: None. Anesthesia type: General. Normal [facility] [place] Comment on above: Result Comment: Elec tronically Signed By: Ni OLIVARES MD\.br\Date and Time Signed: 12/02/22 11:51 EDT Outpatient Surgery Discharge Instructionon 12-02-2022 Outpatient Surgery Discharge Instruction [address] [address] Patient Discharge Instructions PERSON INFORMATION [...] Follow up: With: Address: When: Ni OLIVARES [address] [place] [address], [address], [place] [address] [facility] (1) Comments: Call for followup appointment Pharmacy Information: You may receive a survey from [email or web address] asking you to rate your care experience. Your feedback is important and will help us understand what we do well and how we can improve the quality of care we provide to you, your loved ones and our community. It?s an honor to serve you. Thank you for choosing [facility] HERE ARE THE MEDICATION CHANGES THAT OCCURRED DURING YOUR HOSPITAL STAY New Medications [id number], [address], [place] [id number], [phone] doxycycline (doxycycline hyclate 100 mg Cap) 1 [...] forhead PATIENT EDUCATION INFORMATION Instructions: [facility] [place], [place] Dr. Ni Omalley Post-operative Instructions for [...] swelling, kidn (more content not included)... Normal [facility] [place] Patient Education - Texton 0 12-02-2022 Patient [...] MDI an (more content not included)... Normal [facility] [place] XR Abdomen 1 Viewon 12-03-19 23 XR [...] in mGy = na DAP = na [facility] Consultation Noteon 11-29-19 Consultation Note [id number]#1.00CD:127 [facility] Outside Recordson 11-24-2022 Outside Records [id number]#1.00CD:127 [facility] C Urineon 11-20-2022 Bacteria identified Cx [...] performed at: [facility], [address] [place] [address], [address] , , [facility] Comment on above: Performed By: #### 1 [id number] ####[facility] [place] [address] [place] [address] Albuminon 11-18-2022 Albumin [Mass/Vol] 4.0 g/dL Normal 3.3-5.0 [facility] [place] Comment on above: Performed By: #### 2 [id number], [id number], 6475776, 18913804, [id number], 5736489, 5547279, 6448037, 7149194 ####[facility] [address] [place] [address] Auto Diffon 11-18-2022 Basophils/100 WBC (Bld) 0.2 % Normal 0.0-2.0 [facility] [place] Comment on above: Order Comment: Order Added by Discern Expert. Performed By: #### 2 [id number] #### [facility] [place] [facility] [address] [place] [address] Basophils/Leukocytes Auto (Bld) [Pure # fraction] 0.0 E9/L Normal 0.0-0.2 [facility] [place] Comment on above: Order Comment: Order Added by Discern Expert. Performed By: #### 2 [id number] #### [facility] [place] [facility] [address] [place] [address] Eosinophils/100 WBC (Bld) 0.1 % Normal 0.0-8.0 [facility] [place] Comment on above: Order Comment: Order Added by Discern Expert. Performed By: #### 2 [id number] #### [facility] [place] [facility] [address] [place] [address] Eosinophils/Leukocytes Auto (Bld) [Pure # fraction] 0.0 E9/L Normal 0.0-0.5 [facility] [place] Comment on above: Order Comment: Order Added by Discern Expert. Performed By: #### 2 [id number] #### [facility] [place] [facility] [address] [place] [address] Lymphocytes/100 WBC (Bld) 8.6 % Low 14.0-50.0 [facility] [place] Comment on above: Order Comment: Order Added by Discern Expert. Performed By: #### 2 [id number] #### [facility] [place] [facility] [address] [place] [address] Lymphocytes/Leukocytes Auto (Bld) [Pure # fraction] 0.9 E9/L Low 1.0-4.0 [facility] [place] Comment on above: Order Comment: Order Added by Discern Expert. Performed By: #### 2 [id number] #### [facility] [place] [facility] [address] [place] [address] Monocytes/100 WBC (Bld) 7.1 % Normal 4.0-14.0 [facility] [place] Comment on above: Order Comment: Order Added by Discern Expert. Performed By: #### 2 [id number] #### [facility] [place] [facility] [address] [place] [address] Monocytes/Leukocytes Auto (Bld) [Pure # fraction] 0.7 E9/L Normal 0.2-1.0 [facility] Comment on above: Order Comment: Order Added by Discern Expert. Performed By: #### 2 [id number] #### [facility] [place] [facility] [address] [place] [address] Neutrophils/100 WBC (Bld) 84.0 % High 36.0-75.0 [facility] [place] Comment on above: Order Comment: Order Added by Discern Expert. Performed By: #### 2 [id number] #### [facility] [place] [facility] [address] [place] [address] Neutrophils/Leukocytes Auto (Bld) [Pure # fraction] 8.7 E9/L High 2.0-7.5 [facility] [place] Comment on above: Order Comment: Order Added by Discern Expert. Performed By: #### 2 [id number] #### [facility] [place] [facility] [address] [place] [address] BMPon 11-18-2022 Anion gap [Moles/Vol] 12 mmol/L Normal 6-16 [facility] Comment on above: Performed By: #### 2 [id number] #### [facility] [place] [facility] [address] [place] [address] Calcium [Mass/Vol] 9.3 mg/dL Normal 8.9-11.1 [facility] [place] Comment on above: Performed By: #### 2 [id number] #### [facility] [place] [facility] [address] [place] [address] Chloride [Moles/Vol] 109 mmol/L Normal 101-111 [facility] Comment on above: Performed By: #### 2 [id number] #### [facility] [place] [facility] [address] [place] [address] CO2 [Moles/Vol] 24 mmol/L Normal 21-31 [facility] [place] Comment on above: Performed By: #### 2 [id number] #### [facility] [place] [facility] [address] [place] [address] Creatinine [Mass/Vol] 2.5 mg/dL High 0.5-1.3 [facility] Comment on above: Performed By: #### 2 [id number] #### [facility] [place] [facility] [address] [place] [address] Glucose [Mass/Vol] 130 mg/dL Normal 55-199 [facility] [place] Comment on above: Result Comment: If t his glucose result represents a fasting glucose, interpretation should refer to the following reference range: 55-99 mg/dL Performed By: #### 2 [id number] #### [facility] [place] [facility] [address] [place] [address] Potassium [Moles/Vol] 4.8 mmol/L Normal 3.5-5.3 [facility] Comment on above: Performed By: #### 2 [id number] #### [facility] [place] [facility] [address] [place] [address] Sodium [Moles/Vol] 140 mmol/L Normal 135-145 [facility] [place] Comment on above: Performed By: #### 2 [id number] #### [facility] [place] [facility] [address] [place] [address] Urea nitrogen [Mass/Vol] 38 mg/dL High 5-21 [facility] [place] Comment on above: Performed By: #### 2 [id number] #### [facility] [place] [facility] [address] [place] [address] Urea nitrogen/Creatinine [Mass ratio] 15 No Units Normal 10-20 [facility] [place] Comment on above: Performed By: #### 2 [id number] #### [facility] [place] [facility] [address] [place] [address] CBC w/ Auto Diffon 3 Erythrocyte distribution width (RBC) [Ratio] 13.5 % Normal 10.9-14.2 [facility] [place] Comment on above: Performed By: #### 2 [id number] #### [facility] [place] [facility] [address] [place] [address] Hematocrit (Bld) [Volume fraction] 34.9 % Low 37.7-49.0 [facility] [place] Comment on above: Performed By: #### 2 [id number] #### [facility] [place] [facility] [address] [place] [address] Hemoglobin (Bld) [Mass/Vol] 11.7 g/dL Low 13.5-17.5 [facility] [place] Comment on above: Performed By: #### 2 [id number] #### [facility] [place] [facility] [address] [place] [address] MCH (RBC) [Entitic mass] 32.1 pg Normal 27.0-34.0 [facility] [place] Comment on above: Performed By: #### 2 [id number] #### [facility] [place] [facility] [address] [place] [address] MCHC (RBC) [Mass/Vol] 33.6 g/dL Normal 31.4-36.0 [facility] Comment on above: Performed By: #### 2 [id number] #### [facility] [place] [facility] [address] [place] [address] MCV (RBC) [Entitic vol] 95.4 fL Normal 80.0-100.0 [facility] [place] Comment on above: Performed By: #### 2 [id number] #### [facility] [place] [facility] [address] [place] [address] Platelet mean volume (Bld) [Entitic vol] 8.7 fL Normal 6.4-10.8 [facility] [place] Comment on above: Performed By: #### 2 [id number] #### [facility] [place] [facility] [address] [place] [address] Platelets (Bld) [#/Vol] 214.0 E9/L Normal 150.0-500. 0 [facility] [place] Comment on above: Performed By: #### 2 [id number] #### [facility] [place] [facility] [address] [place] [address] RBC (Bld) [#/Vol] 3.7 E12/L Low 4.3-5.9 [facility] [place] Comment on above: Performed By: #### 2 [id number] #### [facility] [place] [facility] [address] [place] [address] WBC corrected for nucl RBC Auto (Bld) [#/Vol] 10.4 E9/L Normal 4.0-11.0 [facility] [place] Comment on above: Performed By: #### 2 [id number] #### [facility] [place] [facility] [address] [place] [address] Consent for Treatmenton 10-26 Consent for Treatment [id number]#[id number]:127 Normal [facility] [place] Consent for Treatment [id number]#[id number]:127 Normal [facility] [place] Ferritinon 11-18-2022 Ferritin [Mass/Vol] 192 ng/mL Normal 24-336 [facility] Comment on above: Result Comment: NORM ALS MEN <30 YRS 16-132 ng/mL MEN >30 YRS 8-338 ng/mL WOMEN (PREMEN) 6-104 ng/mL WOMEN (POSTMEN) 12-210 ng/mL Performed By: #### 2 258566, 3669415, 0318604, 44524158, [id number], 3868739, 1091595, 6654503, 6602855 ####[facility] [place] [address] [place] [address] Folateon 11-18-2022 Folate [Mass/Vol] ng/mL Normal >=6.7 [facility] [place] Comment on above: Performed By: #### 2 967141, 3788986, 9979658, 39131546, 925502385, 4075055, 4434121, 2451215, 3410462 ####[facility] [place] [address] [place] [address] Ironon 11-18-2022 Iron [Mass/Vol] 102 microgram/dL Normal 35-153 [facility] Comment on above: Performed By: #### 2 898109, 4846797, 3368655, 35068827, 653679588, 2278157, 3614831, 5458297, 4871149 ####[facility] [place] [address] [place] [address] PT & PTTon 11-18-2022 aPTT Coag (PPP) [Time] 27.1 second(s) Normal 25.1-36.5 [facility] [place] Comment on above: Result Comment: Para meter [...] the same coagulation reagent and instrumentation [place] [facility] [place] Currently there are no coagulation studies available worldwide for children to 14 days, and no normal ranges. Heparin therapeutic range (represented by Anti-Factor Xa activity of 0.2 - 0.4 U/mL) corresponds to PTT of 56.6 - 109.0 sec. Performed By: #### 2 [id number] #### [facility] [place] [facility] [address] [place] [address] INR Coag (PPP) [Relative time] 1.1 {INR} Invalid Interpretation Code [facility] [place] Comment on above: Result Comment: INR results are specifically intended to assess patients stabilized on long-term Anticoagulation therapy suggested INR?s ?Less Intensive Anticoagulation? 2.0 ? 3.0 Conventional Range 3.0 ? 4.5 Performed By: #### 2 [id number] #### [facility] [place] [facility] [address] [place] [address] PT Coag (PPP) [Time] 11.9 second(s) Normal 9.4-12.5 [facility] Comment on above: Result Comment: 15 d [...] the same coagulation reagent and instrumentation as [facility] [place]. Currently there are no coagulation studies available worldwide for children to 14 days, and no normal ranges. Performed By: #### 2 [id number] #### [facility] [place] [facility] [address] [place] [address] Phosphoruson 11-18-2022 Phosphate [Mass/Vol] 4.4 mg/dL Normal 1.9-4.6 [facility] [facility] Comment on above: Performed By: #### 2 [id number], 9781575, 8186836, [id number], [id number], 4375894, 8501618, 7539930, 7345934 ####[facility] [address] [place] [address] Physician Orderon 11-18-2022 Physician Order [id number]:127 Normal [facility] TIBC Calculatedon 11-18-2022 Iron binding capacity [Mass/Vol] 292 microgram/dL Normal 250-400 [facility] Comment on above: Performed By: #### 2 376150, 1009730, 7875958, 86231577, [id number], 5126475, 0375128, 1532779, 7555708 ####[facility] [address] [place] [address] Transferrin [Mass/Vol] 208 mg/dL Normal 200-370 Fi [facility] Comment on above: Performed By: #### 2 415954, 1139374, 0813799, 18954329, 928706996, 4091125, 3864673, 2740659, 2139776 ####[facility] [address] [place] [address] U Protein/Creat Ratioon 10-26 Albumin Elph (U) [Mass fraction] 25.2 mg/dL Invalid Interpretation Code [facility] Comment on above: Result Comment: The reference range and other method performance specifications have not been established for this test; results should be integrated into the clinical context for interpretation. Performed By: #### 1 [id number] #### [facility] [address] [place] [address] Creatinine (U) [Mass/Vol] 80.6 mg/dL Invalid Interpretation Code [facility] Comment on above: Result Comment: The reference range and other method performance specifications have not been established for this test; results should be integrated into the clinical context for interpretation. Performed By: #### 1 [id number] #### [facility] [address] [place] [address] U Prot/Creat Ratio 312.70 mg/gm Cr High .00-200.00 F [facility] Comment on above: Performed By: #### 1 [id number] #### [facility] [address] [place] [address] UA With Cult Reflexon 2022 Bilirubin Ql (U) Negative Normal Negative [facility] Comment on above: Performed By: #### 1 [id number], 7509901 #### [facility] [address] [place] [address] Clarity (U) CLEAR Normal Clear [facility] Comment on above: Performed By: #### 1 [id number], 8108586 #### [facility] [address] [place] [address] Color (U) YELLOW Normal Yellow [facility] Comment on above: Performed By: #### 1 6516047, 2315451 #### [facility] [address] [place] [address] Epithelial cells.squamous LM.HPF (Urine sed) [#/Area] 0-2 Normal 0-2 [facility] Comment on above: Performed By: #### 1 [id number], 4624356 #### [facility] [address] [place] [address] Glucose Test strip (U) [Mass/Vol] Negative Normal Negative [facility] Comment on above: Performed By: #### 1 [id number], 2416040 #### [facility] [address] [place] [address] Hemoglobin Ql (U) 3+ Abnormal Negative [facility] Comment on above: Performed By: #### 1 3245746, 6185814 #### [facility] [address] [place] [address] Ketones (U) [Mass/Vol] Negative Normal Negative [facility] Comment on above: Performed By: #### 1 8415244, 8766109 #### [facility] [address] [place] [address] [place].plasma/[place] .RBC (Bld) [Mass ratio] >30 Abnormal 0-3 [facility] Comment on above: Performed By: #### 1 3383662, 0297998 #### [facility] [address] [place] [address] Nitrite Ql (U) Negative Normal Negative [facility] Comment on above: Performed By: #### 1 1268448, 3525755 #### [facility] [address] [place] [address] pH (U) 6.0 [pH] Invalid Interpretation Code 5.0-9.0 [facility] Comment on above: Performed By: #### 1 9756719, 8969963 #### [facility] [address] [place] [address] Protein (U) [Mass/Vol] TRACE Abnormal Negative [facility] Comment on above: Performed By: #### 1 3413519, 5623002 #### [facility] [address] [place] [address] Specific gravity (U) [Rel density] 1.020 Invalid Interpretation Code 1.005-1.03 0 [facility] Comment on above: Performed By: #### 1 4125974, 3804889 #### [facility] [address] [place] [address] Type of Urine collection method Clean Catch Normal [facility] Comment on above: Performed By: #### 1 8343962, 2688855 #### [facility] [address] [place] [address] Urobilinogen Qn (U) 0.2 {Wil'U}/dL Normal 0.0-1.0 [facility] Comment on above: Performed By: #### 1 8767300, 6660314 #### [facility] [address] [place] [address] WBC Auto Ql (U) 1+ Abnormal Negative [facility] Comment on above: Performed By: #### 1 0033006, 1847191 #### [facility] [address] [place] [address] WBC LM.HPF (Urine sed) [#/Area] 0-5 Normal 0-5 [facility] Comment on above: Performed By: #### 1 3564543, 0342529 #### [facility] [address] [place] [address] Uric Acidon 11-18-2022 Urate [Mass/Vol] 7.0 mg/dL Normal 2.2-7.4 [facility] Comment on above: Performed By: #### 2 510916, 3211037, 3202362, 01060327, 928154299, 1009788, 9328108, 0870356, 7388646 ####[facility] [address] [place] [address] Vit B12on 11-18-2022 Cobalamin (Vitamin B12) [Mass/Vol] 495 pg/mL Normal 50-1500 [facility] Comment on above: Performed By: #### 2 852730, 2984130, 1418206, 65910581, 064585245, 8970734, 9505807, 7550636, 0977345 ####[facility] [address] [place] [address] Vitamin D 25 Hydroxyon 11-18 25-hydroxyvitamin D3 [Mass/Vol] 64.8 ng/mL Normal 30.0-100.0 [facility] Comment on above: Result Comment: Vit grewal D deficiency has been defined as a level of serum 25-OH vitamin D less than 20 ng/mL (1,2) by the [place] of Medicine and an Endocrine Society practice guideline. The Endocrine Society further defined vitamin D insufficiency as a level between 21 and 29 ng/mL (2). 1. IOM ([place] of Medicine). 2010. Dietary reference intakes for calcium and D. [place]: The National Academies Press. 2. Kortney MF, Candie NC, Ekaterina WEINBERG, et al. Evaluation, treatment, and prevention of vitamin D deficiency: an Endocrine Society clinical practice guideline. JCEM. 2010; 96 (7):1911-30. Performed By: #### 2 034324, 1399388, 6463398, 94178572, 366524051, 1574548, 5150168, 7176278, 1326090 ####[facility] [address] [place] [address] eGFRon 11-18-2022 GFR/1.73 sq M.predicted among non-blacks MDRD (S/P/Bld) [Vol rate/Area] 25 mL/min/1.73 m2 Low >=59 [facility] Comment on above: Order Comment: Order added by Discern Expert. Result Comment: Supervisor [employer] chirsta kidney disease could be indicated at eGFR's of less than 60 mL/min/1.73m2. Kidney failure is indicated at less than 15 mL/min/1.73m2. Performed By: #### 2 [id number] #### [facility] Laboratory [address] [place] [address] Lab Reportson 11-12-2022 Lab Reports [id number]#1.00CD:127 Normal [facility] Lab Reports [id number]#1.00CD:127 Normal [facility] Lab Reports [id number]#1.00CD:127 Normal [facility] Lab Reports [id number]#1.00CD:127 Normal [facility] PSA, FREE AND TOTAL RATIOon 11-09-2022 % Free PSA 11.3 % Normal [facility] Comment on above: Result Comment: The [...] By: #### P SAFREE #### [facility] [address] [place] [address] Dr. Alicia Patel Prostate specific Ag [Mass/Vol] 4.6 ng/mL Critically high 0.0-4.0 [facility] Comment on above: Result Comment: Dwight JUAREZ methodology. . According to the [place] [employer], Serum PSA should decrease and [...] By: #### P SAFREE #### [facility] [address] [place] [address] Dr. Alicia Patel PSA, Free 0.52 ng/mL Normal N/A [facility] Comment on above: Result Comment: Dwight JUAREZ methodology. Performed By: #### P SAFREE #### [facility] [address] [place] [address] Dr. Alicia Patel INSULINon 11-08-2022 Insulin 18.5 uIU/mL Normal 2.6-24.9 [facility] Comment on above: Performed By: #### T SH, LIPID, T4, FT3, CMP #### [facility] [address] [place] [address] Dr. Alicia Patel CBC AUTO DIFFon 11-06-2022 BASO # 0.0 103/ul Normal 0.0-0.1 [facility] Comment on above: Performed By: #### C BC #### [facility] [address] [place] [address] Dr. Alicia Patel Basophils/100 WBC (Bld) 0.4 % Normal 0.2-2.0 [facility] Comment on above: Performed By: #### C BC #### [facility] [address] [place] [address] Dr. Alicia Patel EO # 0.2 103/ul Normal 0.0-0.7 [facility] Comment on above: Performed By: #### C BC #### [facility] [address] [place] [address] Dr. Alicia Patel Eosinophils/100 WBC (Bld) 4.6 % Normal 0.9-7.0 [facility] Comment on above: Performed By: #### C BC #### [facility] [address] [place] [address] Dr. Alicia Patel Erythrocyte distribution width (RBC) [Ratio] 13.2 % Normal 11.0-15.0 [facility] Comment on above: Performed By: #### C BC #### [facility] [address] [place] [address] Dr. Alicia Patel Hematocrit (Bld) [Volume fraction] 34.6 % Critically low 42.0-54.0 [facility] Comment on above: Performed By: #### C BC #### [facility] [address] [address] [address] Alicia aPtel Hemoglobin (Bld) [Mass/Vol] 11.4 g/dL Critically low 14.0-18.0 [facility] Comment on above: Performed By: #### C BC #### [facility] [address] [address] [address] Alicia Patel IG # 0.03 10e3/ul Normal 0.00-0.03 [facility] Comment on above: Performed By: #### C BC #### [facility] [address] [address] [address] Alicia Patel IG % 0.6 % Critically high 0.0-0.5 [facility] Comment on above: Performed By: #### C BC #### [facility] [address] [place] [address] Dr. Alicia Patel LYMPH # 0.9 103/ul Critically low 1.2-3.8 [facility] Comment on above: Performed By: #### C BC #### [facility] [address] [place] [address] Dr. Alicia Patel Lymphocytes/100 WBC (Bld) 16.3 % Critically low 20.5-60.0 [facility] Comment on above: Performed By: #### C BC #### [facility] [address] [place] [address] Dr. Alicia Patel MANUAL DIFF REQ NO Normal [facility] Comment on above: Performed By: #### C BC #### [facility] [address] [address] [address] Alicia Patel MCH (RBC) [Entitic mass] 32.9 pg Normal 25.9-34.0 [facility] Comment on above: Performed By: #### C BC #### [facility] [address] [place] [address] Dr. Alicia Ptael MCHC (RBC) [Mass/Vol] 32.9 g/dL Normal 29.9-35.2 [facility] Comment on above: Performed By: #### C BC #### [facility] [address] [place], [place] [id number] Dr. Alicia Patel MCV (RBC) [Entitic vol] 99.7 fL Critically high 80.0-94.0 [facility] Comment on above: Performed By: #### C BC #### [facility] [address] [place] [address] Dr. Alicia Patel MONO # 0.6 103/ul Normal 0.3-0.8 [facility] Comment on above: Performed By: #### C BC #### [facility] [address] [place] [address] Dr. Alicia Patel Monocytes/100 WBC (Bld) 12.0 % Normal 1.7-12.0 [facility] Comment on above: Performed By: #### C BC #### [facility] [address] [place] [address] Dr. Alicia Ptael NEUT # 3.5 103/ul Normal 1.4-6.5 [facility] Comment on above: Performed By: #### C BC #### [facility] [address] [place] [address] Dr. Alicia Patel Neutrophils/100 WBC (Bld) 66.1 % Normal 43.0-75.0 [facility] Comment on above: Performed By: #### C BC #### [facility] [address] [place] [address] Dr. Alicia Patel Platelet mean volume (Bld) [Entitic vol] 10.1 fL Normal 9.5-13.5 [facility] Comment on above: Performed By: #### C BC #### [facility] [address] [place] [address] Dr. Alicia Patel PLT 168 103/ul Normal 150-450 [facility] Comment on above: Performed By: #### C BC #### [facility] [address] [place] [address] Dr. Alicia Patel RBC 3.47 106/ul Critically low 4.70-6.10 [facility] Comment on above: Performed By: #### C BC #### [facility] [address] [place] [address] Dr. Alicia Patel WBC 5.2 103/ul Normal 4.0-11.0 [facility] Comment on above: Performed By: #### C BC #### [facility] [address] [place] [address] Dr. Alicia Patel FREE T3on 11-06-2022 FREE T3 2.78 pg/mlL Normal 2.18-3.98 [facility] Comment on above: Performed By: #### U RTPCR #### [facility] [address] [place] [address] Dr. Alicia Patel GLYCOHEMOGLOBIN A1Con 2022 ADA RECOMMENDATION SEE BELOW Normal [facility] Comment on above: Result Comment: ADA RECOMMENDED LIMIT 4.0 - 6.0 ADA THERAPEUTIC TARGET < 7.0 ACTION SUGGESTED > 7.0 Performed By: #### T SH, LIPID, T4, FT3, CMP #### [facility] [address] [place] [address] Dr. Alicia Patel Glucose [Mass/Vol] 120 mg/dL Normal [facility] Comment on above: Performed By: #### T SH, LIPID, T4, FT3, CMP #### [facility] [address] [place] [address] Dr. Alicia Patel HbA1c (Bld) [Mass fraction] 5.8 % Normal 4.5-6.2 [facility] Comment on above: Performed By: #### T SH, LIPID, T4, FT3, CMP #### [facility] [address] [place] [address] Dr. Alicia Patel LIPID PROFILEon 11-06-2022 CHOL-HDL RATIO NORM SEE BELOW Normal [facility] Comment on above: Result Comment: 3.3 - 4.4 LOW RISK 4.4 - 7.1 AVERAGE RISK 7.1 - 11.0 MODERATE RISK >11.0 HIGH RISK Performed By: #### U RTPCR #### [facility] [address] [place] [address] Dr. Alicia Patel Cholesterol [Mass/Vol] 107 mg/dL Normal <=200 [facility] Comment on above: Performed By: #### U RTPCR #### [facility] [address] [address] [address] Alicia Patel Cholesterol in HDL [Mass/Vol] 34 mg/dL Critically low 40-60 [facility] Comment on above: Performed By: #### U RTPCR #### [facility] [address] [address] [address] Alicia Patel Cholesterol in LDL [Mass/Vol] 58.8 mg/dL Normal [facility] Comment on above: Performed By: #### U RTPCR #### [facility] [address] [address] [address] Alicia Patel Cholesterol.total/Chol esterol in HDL [Mass ratio] 3.1 {ratio} Normal [facility] Comment on above: Performed By: #### U RTPCR #### [facility] [address] [address] [address] Alicia Patel HDL NORMAL > or = 60 mg/dl - LO W CARDIOVASCULAR RISK <40 mg/dl - HIGH CARDIOVASCULAR RISK Normal [facility] Comment on above: Performed By: #### U RTPCR #### [facility] [address] [address] [address] Alicia Patel LDL CALC NORMAL SEE BELOW Normal [facility] Comment on above: Result Comment: <100 mg/dl OPTIMAL 100 - 129 mg/dl NEAR OR ABOVE OPTIMAL 130 - 159 mg/dl BORDERLINE HIGH 160 - 189 mg/dl HIGH >190 mg/dl VERY HIGH Performed By: #### U RTPCR #### [facility] [address] [address] [address] Alicia Patel Triglyceride [Mass/Vol] 71 mg/dL Normal <=150 [facility] Comment on above: Performed By: #### U RTPCR #### [facility] [address] [address] [address] Alicia Patel VLDL CALC 14.2 mg/dL Normal [facility] Comment on above: Performed By: #### U RTPCR #### [facility] [address] [address] [address] Alicia Patel PROF 14(COMP METB)on 023 Albumin [Mass/Vol] 3.4 g/dL Normal 3.4-5.0 [facility] Comment on above: Performed By: #### T SH, LIPID, T4, FT3, CMP #### [facility] [address] [place] [address] Dr. Alicia Patel Albumin/Globulin [Mass ratio] 0.9 {ratio} Normal [facility] Comment on above: Performed By: #### T SH, LIPID, T4, FT3, CMP #### [facility] [address] [place] [address] Dr. Alicia Patel ALP [Catalytic activity/Vol] 75 U/L Normal 46-116 [facility] Comment on above: Performed By: #### T SH, LIPID, T4, FT3, CMP #### [facility] [address] [place] [address] Dr. Alicia Patel ALT [Catalytic activity/Vol] 31 U/L Normal 16-63 [facility] Comment on above: Performed By: #### T SH, LIPID, T4, FT3, CMP #### [facility] [address] [place] [address] Dr. Alicia Patel Anion gap [Moles/Vol] 14.4 mmol/L Normal [facility] Comment on above: Performed By: #### T SH, LIPID, T4, FT3, CMP #### [facility] [address] [place] [address] Dr. Alicia Patel AST [Catalytic activity/Vol] 23 U/L Normal 15-37 [facility] Comment on above: Performed By: #### T SH, LIPID, T4, FT3, CMP #### [facility] [address] [place] [address] Dr. Alicia Patel Bilirubin [Mass/Vol] 0.5 mg/dL Normal 0.2-1.0 [facility] Comment on above: Performed By: #### T SH, LIPID, T4, FT3, CMP #### [facility] [address] [place] [address] Dr. Alicia Patel Calcium [Mass/Vol] 8.8 mg/dL Normal 8.5-10.1 [facility] Comment on above: Performed By: #### T SH, LIPID, T4, FT3, CMP #### [facility] [address] [place] [address] Dr. Alicia Patel Chloride [Moles/Vol] 110 mmol/L Critically high 98-107 [facility] Comment on above: Performed By: #### T SH, LIPID, T4, FT3, CMP #### [facility] [address] [place] [address] Dr. Alicia Patel CO2 [Moles/Vol] 24.2 mmol/L Normal 21.0-32.0 [facility] Comment on above: Performed By: #### T SH, LIPID, T4, FT3, CMP #### [facility] [address] [place] [address] Dr. Alicia Patel Creatinine [Mass/Vol] 2.41 mg/dL Critically high 0.70-1.30 [facility] Comment on above: Performed By: #### T SH, LIPID, T4, FT3, CMP #### [facility] [address] [place] [address] Dr. Alicia Patel EGFR-AF SAMMARINESE 32 mL/min/1.73m2 Critically low >=60 [facility] Comment on above: Performed By: #### T SH, LIPID, T4, FT3, CMP #### [facility] [address] [place] [address] Dr. Alicia Patel EGFR-NON AF SAMMARINESE 26 mL/min/1.73m2 Critically low >=60 [facility] Comment on above: Performed By: #### T SH, LIPID, T4, FT3, CMP #### [facility] [address] [place] [address] Dr. Alicia Patel Globulin (S) [Mass/Vol] 3.6 g/dL Normal [facility] Comment on above: Performed By: #### T SH, LIPID, T4, FT3, CMP #### [facility] [address] [place] [address] Dr. Alicia Patel Glucose [Mass/Vol] 72 mg/dL Critically low 74-106 Th [facility] Comment on above: Performed By: #### T SH, LIPID, T4, FT3, CMP #### [facility] [address] [place] [address] Dr. Alicia Patel Potassium [Moles/Vol] 4.6 mmol/L Normal 3.5-5.1 [facility] Comment on above: Performed By: #### T SH, LIPID, T4, FT3, CMP #### [facility] [address] [place] [address] Dr. Alicia Patel Protein [Mass/Vol] 7.0 g/dL Normal 6.4-8.2 [facility] Comment on above: Performed By: #### T SH, LIPID, T4, FT3, CMP #### [facility] [address] [place] [address] Dr. Alicia Patel Sodium [Moles/Vol] 144 mmol/L Normal 136-145 [facility] Comment on above: Performed By: #### T SH, LIPID, T4, FT3, CMP #### [facility] [address] [place] [address] Dr. Alicia Patel Urea nitrogen [Mass/Vol] 32.0 mg/dL Critically high 7.0-18.0 [facility] Comment on above: Performed By: #### T SH, LIPID, T4, FT3, CMP #### [facility] [address] [place] [address] Dr. Alicia Patel Urea nitrogen/Creatinine [Mass ratio] 13.3 mg/mg Normal [facility] Comment on above: Performed By: #### T SH, LIPID, T4, FT3, CMP #### [facility] [address] [place] [address] Dr. Alicia Patel T4on 11-06-2022 T4 [Mass/Vol] 7.90 ug/dL Normal 4.50-12.10 [facility] Comment on above: Performed By: #### T SH, LIPID, T4, FT3, CMP #### [facility] [address] [place] [address] Dr. Alicia Patel TSHon 11-06-2022 TSH 0.263 uIU/mL Critically low 0.358-3.74 0 [facility] Comment on above: Performed By: #### T SH, LIPID, T4, FT3, CMP #### [facility] [address] [place], [place] [address] Dr. Alicia Patel URIC ACID SERUMon 11-06-2022 Urate [Mass/Vol] 7.3 mg/dL Critically high 3.5-7.2 [facility] Comment on above: Performed By: #### T SH, LIPID, T4, FT3, CMP #### [facility] [address] [address] [address] Alicia Patel Pre-Certification Formon Pre-Certification Form [id number]#[id number]:127 Normal [facility] ECHOCARDIO M/2D COMPLETEon 0 10-26-2022 ECHOCARDIO M/2D COMPLETE Patient: VICTORINO SMYTH Exam Date: 10/26/2022 : 1940 Gender:M Ordering : IRIS CORONEL Admission #: [id number] Family : DR TRAY ALFARO . Order #: [id number] CLICK HERE TO VIEW EXAM ECHOCARDIOGRAM REPORT [...] Ksenia Glasgow M.D. on 10/28/2022 at 13:02 [facility] RAD - MISCon 10-25-2022 RAD - MIS [id number]#1.00CD:127 Normal [facility] XR KUB 1 VIEWon 10-22-2022 XR KUB [...] by: TYLER MONSIVAIS Date: 2022-10-22 09:12 Normal [facility] RAD - Ultrasound Reporton RAD - Ultrasound Report [id number]#1.00CD:127 Normal [facility] US KIDNEYSon 10-18-2022 US KIDNEYS EXAMINATION: US [facility] HISTORY: Kidney stone COMPARISON: Ultrasound kidneys 09/01/2022, [...] by: TESS FORD Date: 2022-10-18 07:04 Normal [facility] IntraOperative Documentson 0 10-15-2022 IntraOperative Documents [id number]:127 Normal [facility] BNPon 10-14-2022 Natriuretic peptide B (Bld) [Mass/Vol] 300.0 pg/mL Normal <=1,800.0 [facility] Comment on above: Performed By: #### T SH, LIPID, T4, FT3, CMP #### [facility] [address] [place] [address] Dr. Alicia Patel CBC AUTO DIFFon 10-14-2022 BASO # 0.0 103/ul Normal 0.0-0.1 [facility] Comment on above: Performed By: #### T SH, LIPID, T4, FT3, CMP #### [facility] [address] [place] [address] Dr. Alicia Patel Basophils/100 WBC (Bld) 0.6 % Normal 0.2-2.0 [facility] Comment on above: Performed By: #### T SH, LIPID, T4, FT3, CMP #### [facility] [address] [place] [address] Dr. Alicia Patel EO # 0.2 103/ul Normal 0.0-0.7 [facility] Comment on above: Performed By: #### T SH, LIPID, T4, FT3, CMP #### [facility] [address] [place] [address] Dr. Alicia Patel Eosinophils/100 WBC (Bld) 4.6 % Normal 0.9-7.0 [facility] Comment on above: Performed By: #### T SH, LIPID, T4, FT3, CMP #### [facility] [address] [place] [address] Dr. Alicia Patel Erythrocyte distribution width (RBC) [Ratio] 14.2 % Normal 11.0-15.0 [facility] Comment on above: Performed By: #### T SH, LIPID, T4, FT3, CMP #### [facility] [address] [place] [address] Dr. Alicia Patel Hematocrit (Bld) [Volume fraction] 36.1 % Critically low 42.0-54.0 [facility] Comment on above: Performed By: #### T SH, LIPID, T4, FT3, CMP #### [facility] [address] [place] [address] Dr. Alicia Patel Hemoglobin (Bld) [Mass/Vol] 11.8 g/dL Critically low 14.0-18.0 [facility] Comment on above: Performed By: #### T SH, LIPID, T4, FT3, CMP #### [facility] [address] [place] [address] Dr. Alicia Patel IG # 0.03 10e3/ul Normal 0.00-0.03 [facility] Comment on above: Performed By: #### T SH, LIPID, T4, FT3, CMP #### [facility] [address] [place] [address] Dr. Alicia Patel IG % 0.6 % Critically high 0.0-0.5 [facility] Comment on above: Performed By: #### T SH, LIPID, T4, FT3, CMP #### [facility] [address] [place] [address] Dr. Ailcia Patel LYMPH # 1.1 103/ul Critically low 1.2-3.8 [facility] Comment on above: Performed By: #### T SH, LIPID, T4, FT3, CMP #### [facility] [address] [place] [address] Dr. Alicia Patel Lymphocytes/100 WBC (Bld) 22.6 % Normal 20.5-60.0 [facility] Comment on above: Performed By: #### T SH, LIPID, T4, FT3, CMP #### [facility] [address] [place] [address] Dr. Alicia Patel MANUAL DIFF REQ NO Normal [facility] Comment on above: Performed By: #### T SH, LIPID, T4, FT3, CMP #### [facility] [address] [place] [address] Dr. Alicia Patel MCH (RBC) [Entitic mass] 33.2 pg Normal 25.9-34.0 [facility] Comment on above: Performed By: #### T SH, LIPID, T4, FT3, CMP #### [facility] [address] [place] [address] Dr. Alicia Patel MCHC (RBC) [Mass/Vol] 32.7 g/dL Normal 29.9-35.2 [facility] Comment on above: Performed By: #### T SH, LIPID, T4, FT3, CMP #### [facility] [address] [place] [address] Dr. Alicia Patel MCV (RBC) [Entitic vol] 101.7 fL Critically high 80.0-94.0 [facility] Comment on above: Performed By: #### T SH, LIPID, T4, FT3, CMP #### [facility] [address] [place] [address] Dr. Alicia Patel MONO # 0.7 103/ul Normal 0.3-0.8 [facility] Comment on above: Performed By: #### T SH, LIPID, T4, FT3, CMP #### [facility] [address] [place] [address] Dr. Alicia Patel Monocytes/100 WBC (Bld) 13.8 % Critically high 1.7-12.0 [facility] Comment on above: Performed By: #### T SH, LIPID, T4, FT3, CMP #### [facility] [address] [place] [address] Dr. Alicia Patel NEUT # 2.9 103/ul Normal 1.4-6.5 [facility] Comment on above: Performed By: #### T SH, LIPID, T4, FT3, CMP #### [facility] [address] [place] [address] Dr. Alicia Patel Neutrophils/100 WBC (Bld) 57.8 % Normal 43.0-75.0 [facility] Comment on above: Performed By: #### T SH, LIPID, T4, FT3, CMP #### [facility] [address] [place] [address] Dr. Alicia Patel Platelet mean volume (Bld) [Entitic vol] 10.1 fL Normal 9.5-13.5 [facility] Comment on above: Performed By: #### T SH, LIPID, T4, FT3, CMP #### [facility] [address] [address] [address] Alicia Patel PLT 160 103/ul Normal 150-450 [facility] Comment on above: Performed By: #### T SH, LIPID, T4, FT3, CMP #### [facility] [address] [address] [address] Alicia Patel RBC 3.55 106/ul Critically low 4.70-6.10 [facility] Comment on above: Performed By: #### T SH, LIPID, T4, FT3, CMP #### [facility] [address] [place] [address] Dr. Alicia Patel WBC 5.0 103/ul Normal 4.0-11.0 [facility] Comment on above: Performed By: #### T SH, LIPID, T4, FT3, CMP #### [facility] [address] [place] [address] Dr. Alicia Patel Coding Summary.on 10-14-2022 Coding Summary. CD:[id number] Ww+PGh lYWQ+WQ5CWQCdS57ooXXcaQ4nM 0NMTElOSywgQVBQTElOSyIgbmF gCG1lzCDzZYOn IC8+EG6tAXPrSkvrmZVrw0Q0pL O8P66qgf9qPXgelOY0YJOaOsCq vptgm5rmhUh1RWytCzovTpXa YILjmS26GPH7lO76Bn06aEItaF Zfl8niuAk8BpXtIVKiGRY9bDnr ROsus6IyWETvQ04gjTNgi5B8 GGSzzNwepZXxBmCqeTH4cI8jGK dqrvxfw8wsavraUjp8cy63mOPx o2I8dYA4Y7VqybT0KNLcxNZp IrdmmJAPxF8mokrde9szhapzQp OxOCFaBOk8FYt3HZNjiSizRfCv GO26BNU6XWBqzfGtL9UuFJEz dIjkGqR5n5N6Jd2IM9EHPihjJ9 VNTUFSWTwvdGQ+BO70cv36E6Eu EoflKzv8FFVuYGY5mZR1hD9u FQTsWSpgi0J2zVH7F6QlwuUzbi 5bx7ttMWKsVNgsO75rnSWlo3A6 RTAqkVY5LKAzcFjaRqPmsO87 Oyc+XMJxhCsxh1DyAopew0ywj6 alxCx8ZnsaBXJqjfEkkOfwVBG9 x1DdLs3aIRRwhUY2nXM2bJ9m FiFoTyD2BFdqH405OuQziSAlYp cbE29vS2CosOA+MSOtBnp2DNXp xDrrYQ8eT3JzNQJcwzutcNUl sFiiJA9vJRZxcnpfVNRbrU2pDU TdM9w1YuIeRbW8SRowV1TyFRYh uyykRm21jO2aRkXgUxJ8RSlc G9DcisP7SUJwcUKxTBdxQAD1X1 2km2N8HELvNWQfMFT3bTM0xI5d bGlnbjogbGVmdDsgdmVydGlj TKjaKSqpJ891ZZMeiNmaXiDlFU luZyBEYXRlOiAgMDQvMjAvMjAy MzwvdGQ+TYJoTFS0qDpuNNWf zKOvQUdxZv2hyUpfvCthGW0pBO LtthobVLAizT0rWWPjlQAlxTbb AM9eDQHyfrjxb220JoUmKIF4 KFZrwTYjP2LlpV3xMdSdDUClQR LeQ0NpmIRtAJdkF665IUvfVzX9 MRTulvKkY2KmEKQybXzoJoO2 f0T6Ho4To9AinyfrX4VcjPTnBk ZkOzsrFFv2Y2ZbBszivZW+PC90 CIQeYN69HRa5IPZ0yNjiMVvy JBLlB6JstE7pJwKcAAPlHWVtEs c+PHRhYmxlIHdpZHRoPScxMDAl VbBwlFisID8eNx0qBOBtVFCd iLhyjWYqZvLgb9xaZKHlMGfiNW 4rtImhB8ScpQM2YSApy0c4Hz75 I72hO2ItmZQ+BIJpnEJ5lWX7 gX8oWzYuHvP5HAnwE133NzNvtV MlVqkwi8uie5wsrZi9WpG2VJFs vdXxgRyeXHR4x9GkKr27W44c IHdpZHRoPSIxNSUiIHZhbGlnbj 3dbM1iJw4+WMVesUT4vHS8eS9y TrLcXeH9SVlkK083XuYenKDu Csoaz0skk5xqfSw9AlAjVAVyby AsoCiiTZP0h7CpKc55U9HblQsj n6NsRym2cd27kTHom4V0hHU1 O2AoMOUshwrqjECbxTaeFZ0wXS XbwlasACFfsY6vRJMeF0w6QbVr XeK2WKaiW5HykbQ5JUEnsCPy LRMkkXXRyR9zdtbco4jevnnbYu XpLBEwNBd3SRh8OTPmrWedHkJa XKQ2VsL3NYD8fIUelR9sxCtq aktplZ0oMzx+JDG4jGBewMJFAR 1lOjwvdGQ+SZQxFJT6aAaqWXpk WSEoyX9sZJKoA9o4FrNlBaL1 TVfaJ5LfyqZ4DBWtjSTbCKZsmG PMvX6rbxrix9dvdmucXnApERNu WSx9DSx5QYTcbOzoAlTlBHJ0 IlV3UMG2cZWsyK6hpWfxxcmltY 9wOyc+LdvimVuyLDQ8TZe3Z6Mv Mlj8PMKakOtbGH7gvDKiWBsq Rs3bmYyxyTtoNJ2rOBTkiedra8 11XkPxq2swTFUknIRqKGxtOJD9 S03li2H2QHAtBWApETP2tWZ7 eZ0dpAjwrprhbSZspJllufZcpT ssGYksVZroT759VSYydBiaSuBk FSb5I4AmHjg6DEEkuNjbIE9p wMKbGHqrNq6roBqvoMvdYD0mOY Osznqhe810YpJss4igKAZkoHOs JXobCYN7W64mn1G5ULQsURVr GYN7vIG8pJ5jbGkhngaayXLejL lhwjBqeFfcZGhtFQuqS075NRLk sSeaSsRkiRv8A2BdFdg3UIVw oCvsWN8kcZCcKOlqVk1rsTgjyF trSG8qPQVuitirt498WeSpz6fz SCJymCIfRWbqTZD0C43ei7Z1 HDCxEHHvVMN7aIT6bL7orMrgus ogbGVmdDsgdmVydGljYWwtYWxp R904MLFpfIpgFfWzwQzzhiZf VVgeOCx0L9PpBjalrKU+PC90YW OkOU87oHFmzQFio3qduIy5UgBb TCMrOCW8dNvkOKhxi7UxBVJr D51rkUWdx9W9EREwwLfyzDIlJc RavCP1uW4lRIdhcfnkj6pluzlp Kdugd9hriq34mF42T53gHBkg HKWnBTOyKQViYGBiuVayif4unP 9wIi8+SKOivAG9eFB6mO7bIDJe YaM9CJdhK805TmGteIHhMbsy h9cie9rawNg8RtV3NFCdeuGzsN cbTFF9r6XsTi24R92zVQatAFOf RNAdFZCvNRQniYhkvv3ojU5l Ii8+AHDrpOG0sHA8pT2zUkUaWq J6MNztC369XoXafFPxZxrsP07i V5PpwKI+RVKeZtr0NNAljUwa KW6mkKRfIQksIw0xBSA4VuRzKf TlEZisD3AuOKArwmvnjpvkiSI4 THJcUMIggX21Ug2rpFcxNVMv dCRNcT6cqsudn8cjxgmqFoKgDD XmARc0TQi6SKJcoIjyRnBgGRW5 ReE1KAG0jSCeyV2jyUicodoz iF3wS9PqTTGmulueIa92gE0yTs EtOqA4XEddHgq+QXEGQQ2PAxtj QmFFOlWXFCHRSB23RS72eLVr m0A1eWJ4Q4HvDETkxrvxvolbyO Q9FOXaMBPmnZ71jBRwOLrxJx5j y4B4j391LYGlNZLlaD87Ky0v mCxqWRRzkHWKuT5qvpkoa9ppes cfIyHpIXIaQRu8ELj9WMYfwVag CsHrOXE5MnA1TTG0rQTrjS6d zMvycmmhsX4dXuv+MDIvMDQvMT x5HkfsyRA+CYEqLIS4pHgsRKph XUFttD8xHEPqM0r4OvMlNjN2 YKicN3ClYQYukrfiWl89zZ4pNp BzDxI9KUetT2TrkqD7MMNqgHOl EFzhXYA9R54fd0K8QDRpMMBs PUK4hDR7vJ8weBufigogjZCweU rieeWlnNfqHPtmSBboB176MLCy vJbsJcrpIEvkFJYvUI20AA62 wYMka2Z8yFB9J7UqCSFhnqtcjd xbjTU4RSTuDEKekP34qAUsVYzh Ai5uc1Y2b196OQQgBJYelE58 Uo9gjNagCBImmIMZfA9rcnkwc8 ljfqufVdYoVEHkFFu0WPw9NMCt yWrxTeIjMXC6LcI0ROZ7pZQk uP9muYkjspkqrX9pEmj+TWFsZT wvdGQ+BBZaZTS1kZvkZVjxEFDj mD5jLLKuR1z9HwKfArD7BScw Q4NqSRPxfjofFa58qI7oHvVeMc V7SQvmE9GjnvS4MZYdcAXoUWpf VIE4I99sp9G6WSIhYRMyRKS1 pSO8zX7lsVjvbqrksKWdmTckap QjaFhmYLfoYYwoX669OWSweBro ViYgXwRdZOOwjhnyF6PuXSUL QEhkB4KyI1FspGxiiKI+PC90cj 72C9QlQlrrLsk1PBEgTKT3jYL8 xG3oEMIrDYjtb4X8bWS5N7Jy ogZfnc9po9zlHDMjNZceM74xiV Asy4X7BTStkMI3VRRglBfiIvMk xE36Vzy+BOBqnCzsg2VzXyrz k5drf4sagPb1ZwRjJTVolgLofH pyAEY2w5KrYe22Q71vYVlkWEVr LPYoZDOfDQXhyAdzsf1oqL7y Ii8+YNIqxRD7kLT1uJ0aUiYcIy T2REqmB074HlPmvPUqEazsy0mc y7kejRe1OfKlQKWaycWgfNop SVE4k5NwRv27W8XrlPdkg3WbBm y7nf64iJKiv7R2yLT9M3MvOZCe ydtdnBShpXvpSS8jKKPcsicz GQTxwD8uVRJdG8w4FzLyHuJ7VU wkS3DdawY4GREakUBmPQJdtDXX kV6paskes5ccrjbkVvRrVLEf BRe8KRo8DUKdbTwpIxHbLNC3At S9MBI0dUFntI6idZzjwydzwM0l Oyc+HVk8g1zuuPHbBZ3duGF8 NB17RD71lHQac9C3uNP4W7OzYX RjcxssgwdeoBI8GPKqCIUfhN62 Xq8enHltJo9jRWJbBPH9ZTCd oZHxF4YyvK9rTwMsGPNjKQDuU9 OkjEPvXXfgU281MVbcOzW5YFZt lyQcJ3QvMTLdyWdaCpT3v4L7 Cj1TUR37HG47MD37qUQwu0P3dF D6P0VaHVGbmvevstzuaMU9NVVm PUUijE10Yx1hhPuvMc9eUQQi TPB1RPNkuBCqW1DvyZ5cYlDcVO ToPGTaT5AseKHuXRuzH111DMna DcB4OKEulkDdR4VyQPPmbWqr VbM8z4O9Kw0PBg37EO73GX92dK Ujw8B9nNA6O7IvAPGdmrjlcjvv bUT5CBDgJNHoqE67Rt9smCcb Px9sGOClZMK1BFOslJCuR8AotW 9pEyFdVSCcJHUrO1VfuKUbUPcz M479UQafAiN7WWYkadNeH5Qa CTBvdCkoYwQ3x5Q4Hi0NXWdtwj m9G8JdJgfstII+FV76SCLlPG36 aBNuoGJsc1pppAw8TaUtTMHg CVZ4zVfy (more content not included)... Normal [facility] PROF CHEM 8 (BAS METB)on Anion gap [Moles/Vol] 13.9 mmol/L Normal Th [facility] Comment on above: Performed By: #### T SH, LIPID, T4, FT3, CMP #### [facility] [address] [address] [address] Alicia Patel Calcium [Mass/Vol] 8.3 mg/dL Critically low 8.5-10.1 Th [facility] Comment on above: Performed By: #### T SH, LIPID, T4, FT3, CMP #### [facility] [address] [address] [address] Alicia Patel Chloride [Moles/Vol] 108 mmol/L Critically high 98-107 [facility] Comment on above: Performed By: #### T SH, LIPID, T4, FT3, CMP #### [facility] [address] [address] [address] Alicia Patel CO2 [Moles/Vol] 23.5 mmol/L Normal 21.0-32.0 [facility] Comment on above: Performed By: #### T SH, LIPID, T4, FT3, CMP #### [facility] [address] [place] [address] Dr. Alicia Patel Creatinine [Mass/Vol] 2.41 mg/dL Critically high 0.70-1.30 [facility] Comment on above: Performed By: #### T SH, LIPID, T4, FT3, CMP #### [facility] [address] [place] [address] Dr. Alicia Patel EGFR-AF SAMMARINESE 32 mL/min/1.73m2 Critically low >=60 [facility] Comment on above: Performed By: #### T SH, LIPID, T4, FT3, CMP #### [facility] [address] [place] [address] Dr. Alicia Patel EGFR-NON AF SAMMARINESE 26 mL/min/1.73m2 Critically low >=60 [facility] Comment on above: Performed By: #### T SH, LIPID, T4, FT3, CMP #### [facility] [address] [place] [address] Dr. Alicia Patel Glucose [Mass/Vol] 74 mg/dL Normal 74-106 [facility] Comment on above: Performed By: #### T SH, LIPID, T4, FT3, CMP #### [facility] [address] [place] [address] Dr. Alicia Patel Potassium [Moles/Vol] 4.4 mmol/L Normal 3.5-5.1 [facility] Comment on above: Performed By: #### T SH, LIPID, T4, FT3, CMP #### [facility] [address] [address] [address] Alicia Patel Sodium [Moles/Vol] 141 mmol/L Normal 136-145 [facility] Comment on above: Performed By: #### T SH, LIPID, T4, FT3, CMP #### [facility] [address] [place] [address] Dr. Alicia Patel Urea nitrogen [Mass/Vol] 36.0 mg/dL Critically high 7.0-18.0 [facility] Comment on above: Performed By: #### T SH, LIPID, T4, FT3, CMP #### [facility] [address] [address] [address] Alicia Patel Urea nitrogen/Creatinine [Mass ratio] 14.9 mg/mg Normal [facility] Comment on above: Performed By: #### T SH, LIPID, T4, FT3, CMP #### [facility] [address] [place] [address] Dr. Alicia Patel TROPONIN, HIGH SENSITIVITYon 10-14-2022 HSTROP 9.6 pg/mL Normal 4.0-76.1 [facility] Comment on above: Result Comment: CUT- OFF POINTS HAVE BEEN ESTABLISHED BASED ON THE FOURTH UNIVERSAL DEFINITIONS OF MYOCARDIAL INFARCTION. THE UPPER REFERENCE LIMIT (URL) OF TROPONIN, DEFINED THE 99TH PERCENTILE OF cTnI DISTRIBUTION IN A REFERENCE POPULATION, HAS BEEN CONFIRMED THE DECISION THRESHOLD FOR GA DIAGNOSIS. Performed By: #### T SH, LIPID, T4, FT3, CMP #### [facility] [address] [place] [address] Dr. Alicai Patel Main OR Intraoperative Recor don 10-13-2022 Main OR Intraoperative Record IntraOp Document Type FT Summary Primary Physician: Ni OLIVARES MD Finalized Date/Time: 10/13/22 15:17:44 Pt. Name: VICTORINO SMYTH/Sex: 1940 Male Med Rec #: [id number] Physician: Ni OLIVARES MD Financial #: [id number] Pt. Type: A Room/Bed: 06/ Admit/Disch: 10/07/22 [...] Role Performed Anesthesiologist of Surgeon - Primary District Adviser - Primary Record Time In 10/07/22 15:01:00 [...] and tissue Entry 1 Skin Integrity Intact, [place], Warm, and Skin Abnormality No Dry Outcomes [...] Resting at Side (more content not included)... [facility] Consent for Anesthesiaon Consent for Anesthesia [id number]#1.00CD:127 [facility] Discharge Instructionson Discharge Instructions [id number]#1.00CD:127 [facility] IntraOperative Documentson 0 10-08-2022 IntraOperative Documents [id number]#1.00CD:127 [facility] IntraOperative Documents [id number]#1.00CD:127 [facility] IntraOperative Documents [id number]#1.00CD:127 [facility] Preoperative Documentson Preoperative Documents [id number]#1.00CD:127 [facility] Preoperative Documents [id number]#1.00CD:127 [facility] Preoperative Documents [id number]#1.00CD:127 [facility] XR Abdomen 1 Viewon 10-09-19 XR [...] mGy = 0 DAP = 0 Normal [facility] CHEMISTRYOrdered By: Lab ROP User on 10-07-2022 Glucose [Mass/Vol] 101 mg/dL High 55 - 99 mg/dL [facility] [place] Sub[place] Comment on above: Result Comment: Jackelin DUNN POC Device SN [id number] Invalid Interpretation Code [facility] [place] Subsection POC User ID [id number] Invalid Interpretation Code [facility] [place] Subsection POC Username BEE NORRIS Invalid Interpretation Code [facility] [place] Subsection Capillary Glucose POCon 09-25 Glucose [Mass/Vol] 101 mg/dL High 55-99 [facility] Comment on above: Result Comment: Jackelin DUNN Performed By: #### 2 [id number] #### [facility] [address] [place] [address] Consent for Procedure/Surger yon 10-07-2022 Consent for Procedure/Surgery [id number]#1.00CD:127 Normal [facility] Consent for Treatmenton 09-25 Consent for Treatment [id number]#1.00CD:127 Normal [facility] H&P Updateon 10-07-2022 H&P Update [id number]#1.00CD:127 Normal [facility] Inpatient Patient Summaryon 04-13-2023 Inpatient Patient Summary [address] [address] [facility] Clinical Discharge Instructions PERSON INFORMATION Name: VICTORINO SMYTH [facility]#:[id number] PHYSICIANS Admitting Physician: Ni OLIVARES MD Attending Physician: Ni OLIVARES MD PCP: Erum OLIVEROS, Tray Discharge Diagnosis: Comment: PATIENT EDUCATION INFORMATION Instructions: Post Op Patient Instructions - FT (CUSTOM); Lithotripsy, Care After Medication Leaflets: Follow up: With: Address: When: Ni MARSHALL [address] [place] [address] AVE, [address], [address] [address] Business (1) Comments: We were [...] any other anesthesia procedures. Type Location Start [facility] Office Visit [facility] [place] Charito 10/29/2022 8:45 AM 10/29/2022 9:00 AM Confirmed MEDICATION LIST New Medications [id number], [address], [place] [id number], [phone] acetaminophen-hydrocodone (acetaminophen-hydrocodone 325 mg-5 mg oral tablet) [...] Capsules By Mouth every day. Comment: Normal [facility] Main OR PACU I Recordon 09-25 Main OR PACU I Record PACU Phase I Docum ent Type FT Summary Primary Physician: Ni OLIVARES MD Finalized Date/Time: 10/07/22 16:21:28 Pt. Name: VICTORINO SMYTH/Sex: 1940 Male Med Rec #: [id number] Physician: Ni OLIVARES MD Financial #: [id number] Pt. Type: A Room/Bed: Admit/Disch: 10/07/22 09:01:16 [...] By: ALESSIA YOON RN 10/07/22 16:21 Normal [facility] Main OR PACU II Recordon Main OR PACU II Record PACU Phase II Doc ument Type FT Summary Primary Physician: Ni OLIVARES MD Finalized Date/Time: 10/07/22 18:36:17 Pt. Name: VICTORINO SMYTH /Sex: 1940 Male Med Rec #: [id number] Physician: Ni OLIVARES MD Financial #: [id number] Pt. Type: A Room/Bed: [facility] Admit/Disch: 10/07/22 09:01:16 - 10/07/22 17:40:00 Institution: [...] By: Eliz Mcbride RN 10/07/22 18:36 Normal [facility] Main OR Preoperative Recordo n 10-07-2022 Main OR Preoperative Record PreOp Document Type FT Summary Primary Physician: Ni OLIVARES MD Finalized Date/Time: 10/07/22 15:12:57 Pt. Name: VICTORINO SMYTH /Sex: 1940 Male Med Rec #: [id number] Physician: Ni OLIVARES MD Financial #: [id number] Pt. Type: A Room/Bed: [facility] Admit/Disch: 10/07/22 09:01:16 - Institution: Case Times [...] 10/07/22 15:12 Aravind Gatica 10/07/22 15:12 Normal [facility] Monitor Recordon 10-07-2022 Monitor Record [id number]:127 Normal [facility] Monitor Record [id number]:127 [facility] Operative Reporton Operative Report Patient: [...] placed in the supine position on the [place] litho-Star lithotripsy table. Under C arm fluoroscopic imaging the stone was actually visualized. Therefore it was not indicated to proceed with a cystoscopy and retrograde pyelogram. Per protocol a total of 3000 shocks are given up to level 3.5. There was a pause at 200 shocks. There appears to be stone fragmentation. He tolerates it well. He is transferred to the re[place]vale and then back to PACU in satisfactory [...] patient's that he needs to contact his food expeditor and/or Dr. Jose Alfaro to arrange for possible further follow-up regarding this. She was in agreement with the plan.. Estimated Blood Loss: 0 ml. Complications: None. Anesthesia type: General. [facility] Comment on above: Result Comment: Elec tronically Signed By: Ni OLIVARES MD\.br\Date and Time Signed: 10/07/22 15:51 EDT Outpatient Surgery Discharge Instructionon 10-07-2022 Outpatient Surgery Discharge Instruction [address] [address] Patient Discharge Instructions PERSON INFORMATION [...] Follow up: With: Address: When: Ni OLIVARES [address] [place] [address], [address], [address] [address] Business (1) Comments: We were [...] other anesthesia procedures. Type Location Start Finish [facility] [place] [facility] [place] 10/29/2022 8:45 [...] to serve you. Thank you for choosing [facility] HERE ARE THE MEDICATION CHANGES THAT OCCURRED DURING YOUR HOSPITAL STAY New Medications [id number], [address], [place] [id number], [phone] acetaminophen-hydrocodone (acetaminophen-hydrocodone 325 mg-5 mg oral tablet) [...] Lithotripsy, Care (more content not included)... Normal [facility] Patient Education - [employer] 0 10-07-2022 Patient [...] these instructions at home: Medicines ? Take [id number]-fwu-pyblqdv and prescription medicines only as told by [...] help ri (more content not included)... Normal [facility] Progress Note-Physicianon Progress Note-Physician Patient: VICTORINO SMYTH Age: 82 years Sex: Male : 1940 Associated Diagnoses: None Author: Timothy Pittman MD Postoperative Information Postoperative disposition: Postoperative disposition: To PACU. Optimetrix number: Optimetrix number [id number]. Anesthetic utilized: General. Physical Examination Vital Signs [...] meets criteria ( To home ). Normal [facility] Comment on above: Result Comment: Elec tronically [...] Problems Acute kidney failure / SNOMED CT 55732574 / Confirmed Anticoagulated / SNOMED CT 928112645 / Confirmed BPH associated with nocturia / SNOMED CT 9377926935 / Confirmed BPH with urinary obstruction / SNOMED CT 4394946929 / Confirmed Chronic obstructive pulmonary disease (COPD) / SNOMED CT 02793960 / Confirmed Coronary artery disease / SNOMED CT 60440885 / Confirmed DM (diabetes mellitus), type 2 / SNOMED CT 777847293 / Confirmed Elevated PSA / SNOMED CT 6149620392 / Confirmed Erectile dysfunction / SNOMED CT 4684101122 / Confirmed Flank pain / SNOMED CT 747898765 / Confirmed H/O: hypothyroidism / SNOMED CT 602510358 / Confirmed Hydronephrosis / SNOMED CT 41106114 / Confirmed Hydronephrosis with ureteral calculus / SNOMED CT 3477787442 / Confirmed Hyperlipidemia / SNOMED CT 46595546 / Confirmed Hyperplastic colon polyp / SNOMED CT 0858841708 / Confirmed Hypertension / SNOMED CT 3798707581 / Confirmed Kidney stone / SNOMED CT 242627146 / Confirmed Myocardial infarct / SNOMED CT 62195251 / Confirmed Occult blood in stools / SNOMED CT 40703474 / Confirmed Postprandial diarrhea / SNOMED CT 24759403 / Confirmed Prostate cancer / SNOMED CT 3380250592 / Confirmed Rheumatoid arthritis / SNOMED CT 765984351 / Confirmed Ureteral stone / SNOMED CT 90181550 / Confirmed Urinary retention / SNOMED CT 094923313 / Confirmed, Active Problems (24) Acute kidney [...] Mean Kayce (more content not included)... Normal [facility] [place] Comment on above: Result Comment: Elec tronically Signed By: Toya OLIVEROS, Timothy Motta\.br\Date and Time Signed: 10/07/22 16:52 EDT Coding Summary.on 09-22-2022 Coding Summary. CD:[id number] Ww+PGh lYWQ+WN6LDXFjA12tcHKvnG8pF 0NMTElOSywgQVBQTElOSyIgbmF cEW7tmBWaYZYu IC8+YA9cBLOyRrzxvCSby1H7fV R7E91psx0oZMlqsVF1OKCqWvGq hfbcw2wniZr4IAneQdekMwBk SREcfR07YYI6uD00Ht64wHVyuG Aqt4sclPm6PkYoRLBsSUW2yKaw ARwcc8KeEYNnQ36iaPNau3K1 CXSabYkepFZfHqEztSF4eP1hAF pzhhfmx4xnfknnOze2dn77eZLv w3W0rJV6U7JnlwW0ULXcuGSs NbpnmFIYiL3itxprq3lziogsZj RiQZYjINk2IEh3WCFleOdhGcSb GP99ZYM4ICKrmeSsO8LyPDPj oZpeJzV4k0D7Px6VD9BZYsqbD5 VNTUFSWTwvdGQ+CG10br13Z7Dx UdioMqk1GYRiZUS4sEV9gV4r JMVyMAguk0Z5vIS6H1RsvpTsar 5yc7tcHPTvSBiaX11gyITnb9J9 KMOmlTD0UPVyqBdyTrGvxG10 Oyc+SNBbyZlyf0PmWyefd7wig0 ueiEw6KydiZCNvwwGqrXpfOVO1 p7YfKz4aAMTmwXG7sIR8dE8d FyYiJzM1KCojD884CiKwfZAzNg xsJ22yW2IrvOU+URUiArg5DLQf mKyeFB6cF8DwLWLzxepgrZNu kOnmGV4mCADeysgiIBBnvU6hED SpU5f2FiVbOdL2ZBluX7OzRXAd jszsPh37fC1uYsAxNfW9UUvl J8BfitH5DNTwgGTgXOtoFDU9L0 7ev1X9WVSyKIRhEMK1uVX5oU3k bGlnbjogbGVmdDsgdmVydGlj JXiyODdfJ819TJVayTrgMfYnAG luZyBEYXRlOiAgMDMvMjkvMjAy MzwvdGQ+YBBdTGY8cWauTBPz xGMvLLpoCm0uvHkzlGlbIT8lMJ LbmazxUCFjqT5bLFDmhUVlpFwh HA8kVLIrueqlg646WkKlTYZ6 UMEzhMOeA6QsrC1fQsXuDMWcBY PtH7LesDOwJTjvU900FZuaHqA1 GPNhamRsZ2HaAFSzaXnxTuN6 t1V5Ar9Fl8CvjwyyS0BzjLZgXk SrTggyDBn7R0XxRvdxoJX+PC90 KVHiEO12GGp0BTF5nZfmSApm FJSbW5YfgE5fNxHdWEHkBVJbCl c+PHRhYmxlIHdpZHRoPScxMDAl DwDxpQeuRG2cZu7kSYMcEGVr gGjhyDUqUpOag5voKZXjDAenZO 0erJsoJ3LpiJO0EOFgc7j9Sp77 I68cX9BmxFM+XCUwgJF6jMZ6 lX2qGrIgPfO3VDibT876IuJheG DzUgari6xni7ibsZu1OqY0SXMs anAzxMkaSQC7j7PzEm05M80p IHdpZHRoPSIxNSUiIHZhbGlnbj 6vxR6oMw0+WNAysJY0tJR2jT2u JtCoElG1ALsvR984RiGfzODv Jvuoa2lcl8ljwJc3EeTrPYXcnp GpxDvmDJZ3i5WcCt78M5PjxDqq q2GkOta4fh60hIGvt3A0eAT3 Y5BsNLGmcxgniMXffGjsOW2hED NsfdmhPBAtcS4bVVAdD8z4NiFg VvH7YAnwM1UdbfG6RMIfcDRm CXTqpCCEnT7bzexey8tqzhprXu KdSXMfLMw0ZFh7AFNkgZwkOjQb CAI8DsH2UZS8tDPtmS3diYuy ddvzdP8eRfe+TAE8qVQkoFIMMC 1lOjwvdGQ+VMBgIXN5lOfdMFub QVIrfL2jOFQkW5g4JnEgVnU0 REpuN0ZnivB9SWGiuUWmHEUnkB ZAiZ0yahrer3biblfvTsLpECBq UOp1AXb2SOMhuGiuFoQeXPY2 VjY8RGX3rXZcaW2kzHboqfcraM 9wOyc+HcbwwQedCJA4TDu7D2Vw Qtk3HNHaaEhuZV7pzVThZSti Wl3vhGrgbAogOI8iCTDrwzvjb2 97MpAho3oaALEflXKwTAvgIJU7 V51oh5F2NPFfWJCqUYK6pDF6 oI2olXiljevraFZbqNdxctYifL gdNNfpWQorG692YFDvwMnyRwXx CSh1Y8BxUbk8LYUicXqnMQ1u dJKuUQdzFn7adDzfpLlxFO2rTO Uljrjwi000DcFcl8yaNOKlpLRi KNhpRNR7L49qm8C6BYItOPBa BMI7aLM7qT3jpKlxfgycuWYonQ werwEacRcfIFoxENpmV507LZHb mXpdMgCxaWm8H8ClPfg4SMWk hBufGI2otCHpEIhoNc0fbXmnsQ tlZB7qINIvvjzra937PwKkk6dw KTAdqGJuZBtmVJL3Q65tp7I1 ICYiYDWmUDA3aBQ8uC0keRdbhs ogbGVmdDsgdmVydGljYWwtYWxp F450CIYpoVwbSeMsuDlhyrSi OXjcUQu8L1WcSrggcBC+PC90YW ZnXO55eYXnuCVim4ywhFr8OsNi LMMbYBU3vEtgLDfdj7FfNXWt T97rwTOsu0B3CJKzkPkcoXUdBv LcfWE2mN1jXEfwvaldv8xqqmec Brlhe5qenm02gY04K57uUPff OGIbJSRsVXAsREZmwBwlpk7ueG 9wIi8+EHOrkXD5sLP0yH8dPWNj MaN0WFkoR620QrDbrGIeCgzs m6gdf2khjCx7KaF0RIBrlvSnwL rqZWS4w0ItHc85M87wPAqcYBZz XUFtCGQdKTSruUcjdj7cxX8d Ii8+TCBgaYB4kIS0gR4qZbAvGo X1VNxcN325JxBjqPObSflyG69h Q6BdeXV+NOQgLhz8DKKzvUks DZ0egRHlPOdgPv4pWKX1FxBcJn GgMTqdS2EySIAglehzmxoiiSF5 HNLqGQCvlY10Tg9cfLuoXXEf pJJXtC1tbgafk5clscekYeVhJE XfCXk3JSb4BWMfiOjeYyQuPDY4 PxL8GYV2kQEuwO3jpCgabgcl sT4sI7WxFMSvbtbpLv16bE9zQx AfXpR9MYmwJyb+PONVBS9SBjqk ZmCFEmYGNBCVHA44CH95zXDc e1S6yWS5F4WqEIBvhmbfkjcyaI A3MYBxTCSicT85qRCrJLyhXg0a w2X9h492UAWrMNJscA61Lt4f qPutEDUniGTHoH1xyvxna6zbzm wbLaWzRFWfRHn2VPo8JKQpqJrb HvXiAMX9DqX7GEG1mIQuvN2d nAhwwtqfpC4rKzl+MDIvMDQvMT n2SauqxUH+AGEwAAB2oTjpMLss XWRxqV7eBIFkS1j1NgEdUhQ1 ZKuzR0LmDWFgqctpRw02eX5sSp YlDpJ6MFjpZ5IspnH9NFYtdYZg MCcrHSJ1G78gj9R8EPCpYFCx FCV1yLV3nH4hyIlpwgnunMHkcG qozdXchZhcIBabXBdsO532RWMy iHguVqdvVWevDJFwQA05HK20 yJVwf7B2gIO7C7HbLREqtsclah hzwHN4YFIcKAXnsL09sMBrSXih Df3rx7Z0n529LWWyDMWskY20 Rq3xrBrzUYCwpZVLkZ0bleffx3 kqxwwjLtAvGWUzXGm1YDd2KJVb sSzmHwBeFEH6XbK2KDX6sJFc fH7keJmvcfvnwW7qNum+TWFsZT wvdGQ+KTEcZDU7qMrwXThrHUMw lD9cEGHlR9e8SyNsLrW3YMix Y2CtMLBvoaojWd39uW8eDgMcBt J1XUlrL2PtxlG8JSGytBRoQIfh NCQ3T47ht3O0IQAuRXXpWEZ7 bVZ5aV4pbQuaxvwgvTIwaRroxg HcpXbtAUzfTFdoZ552WMIizItk Rv85xDZsgGwuuvD4W6DdVnpq dHI+MB15TIZnHA59rCOevPWir3 xfkUu2WsZaGLVqYCH0iWrsIQef q2OxCPOcV70sqHVts6D5JJWe lXbzzLJjKbMbmES5hI6lFIxyas jsw6ubohaiIjedw9kygs29fU29 J99gDHavUCQwORQnMSNrYNPr vFcaal4euL0yVd5+KOPloRW5dP S4bQ5gGwTbYhM9ORwvU650PiDe tWQbXlboo8rjd4demJs1KoVb UKXrleKoeYdqFEF4i1LeKg38D6 9sIHdpZHRoPSIyMCUiIHZhbGln sj8saA2lNo7+ME2qy3uodh39 rH08lKN+CMIdYTP2yOaeKQcaOA NnaZ4mYRvqJxK1KXIgDcAdmI07 aWVhDJdyJk3zoNmifZrcDD6r PHAghdidu664ZsCom0yySQFjpM RjJLnxXGO5I00pk4U9ZKMnGESo JTC9zXM9zF7mjWzrruumpNSa dCemiiPmfYkvFLyrHShwA898SJ AbdBolKhXnnRKgK4uzczKAJQ1m OjwvdGQ+ISNrWUF2oBncVRfi CRTdlQ9cJWLmW3y8ViNsKsE2JL xfE8VpvoL5VRMvrHRsMVZlhVRA wZ0jbiazj3drpdcqQkUkFFZc QPi1MKe3HAYkmPfrTlYjJPN2Dz P0DFV8tNBgbO1crVasfnkzoL9c Oyc+RklOOjwvdGQ+PHRkIHN0 wAunUZfmZZJenZ7jDXTrQ5b7Pq YhCeI9YCimD0GpgrM8RMYcnXQd DCQhrTDTdW7baaylt9vbkaew KjHrJUFtUGf8UVx6NZAhjYpxGr CoRBU6CqS5NVX9qNFfxC3zjNti redgyZ2uLbv+TVJOOjwvdGQ+ HOUwHBG0mFmuPAicNWPtkC6bSB SiF7o0CrOvXgM9DVqmO8CcukG3 OTItuZBnDMLnaAJUbD3cfyzy p6qpuwrxShMvCHVoLHn7LIi3FR IiiGdgOjBtTBA6HaJ1OKO4pDUr iK2xcLaaodyecZ0qKln+UGF5 JSL4QE10TB03Z1EqJqrztOBodN U+PHRhYmxlIHdpZHRoPScxMDAl SuUcjBqgCP9vQv2oUACgNNUe bGxhcHNl (more content not included)... Normal [facility] [place] Consultation Noteon 09-21-19 Consultation Note [id number]#1.00CD:127 Normal [facility] Lab Reportson 09-20-2022 Lab Reports [id number]#1.00CD:127 Normal [facility] [place] RAD - Ultrasound Reporton RAD - Ultrasound Report [id number]#1.00CD:127 Normal [facility] [place] Outside Recordson 09-16-2022 Outside Records [id number]#1.00CD:127 Normal [facility] [place] Auto Diffon 09-14-2022 Basophils/100 WBC (Bld) 0.5 % Normal 0.0-2.0 [facility] [place] Comment on above: Order Comment: Order Added by Discern Expert. Performed By: #### 2 347604, 29874951, 2076860, 29750029, 6372995 #### [facility] [address] [place] [address] Basophils/Leukocytes Auto (Bld) [Pure # fraction] 0.0 E9/L Normal 0.0-0.2 [facility] [place] Comment on above: Order Comment: Order Added by Discern Expert. Performed By: #### 2 862647, 88428825, 4836693, 27181970, 5148930 #### [facility] [place] [facility] [address] [place] [address]84[address] Eosinophils/100 WBC (Bld) 3.2 % Normal 0.0-8.0 [facility] [place] Comment on above: Order Comment: Order Added by Discern Expert. Performed By: #### 2 643492, 17163331, 5425910, 05749551, 8949640 #### [facility] [place] [facility] [address] [place] [address]8480 Eosinophils/Leukocytes Auto (Bld) [Pure # fraction] 0.2 E9/L Normal 0.0-0.5 [facility] [place] Comment on above: Order Comment: Order Added by Discern Expert. Performed By: #### 2 963556, 76297896, 6551075, 03505801, 9891753 #### [facility] [place] [facility] [address] [place] [address] Lymphocytes/100 WBC (Bld) 17.6 % Normal 14.0-50.0 [facility] [place] Comment on above: Order Comment: Order Added by Discern Expert. Performed By: #### 2 005636, 65578753, 6119849, 69517068, 1784420 #### [facility] [place] [facility] [address] [place] [address] Lymphocytes/Leukocytes Auto (Bld) [Pure # fraction] 0.9 E9/L Low 1.0-4.0 [facility] [place] Comment on above: Order Comment: Order Added by Discern Expert. Performed By: #### 2 568720, 05812961, 7061306, 97839078, 0066732 #### [facility] [place] [facility] [address] [place] [address] Monocytes/100 WBC (Bld) 10.2 % Normal 4.0-14.0 [facility] [place] Comment on above: Order Comment: Order Added by Discern Expert. Performed By: #### 2 359634, 43055952, 2112037, 34155138, 5032866 #### [facility] [place] [facility] [address] [place] [address] Monocytes/Leukocytes Auto (Bld) [Pure # fraction] 0.5 E9/L Normal 0.2-1.0 [facility] [place] Comment on above: Order Comment: Order Added by Discern Expert. Performed By: #### 2 294171, 96947598, 7689832, 85964414, 1324041 #### [facility] [place] [facility] [address] [place] [address] Neutrophils/100 WBC (Bld) 68.5 % Normal 36.0-75.0 [facility] [place] Comment on above: Order Comment: Order Added by Discern Expert. Performed By: #### 2 717963, 98644956, 2183227, 66897084, 1699159 #### [facility] [place] [facility] [address] [place] [address] Neutrophils/Leukocytes Auto (Bld) [Pure # fraction] 3.6 E9/L Normal 2.0-7.5 [facility] [place] Comment on above: Order Comment: Order Added by Discern Expert. Performed By: #### 2 444157, 57984201, 4529869, 83348878, 4935737 #### [facility] [place] [facility] [address] [place] [address] BMPon 09-14-2022 Anion gap [Moles/Vol] 10 mmol/L Normal 6-16 [facility] Comment on above: Performed By: #### 2 139697, 43216144, 3780542, 86390506, 9934972 #### [facility] [place] [facility] [address] [place] [address] Calcium [Mass/Vol] 8.6 mg/dL Low 8.9-11.1 [facility] [place] Comment on above: Performed By: #### 2 562938, 87438027, 0322074, 25609811, 3221793 #### [facility] [place] [facility] [address] [place] [address] Chloride [Moles/Vol] 108 mmol/L Normal 101-111 [facility] Comment on above: Performed By: #### 2 261216, 15440166, 7469752, 37956096, 7944383 #### [facility] [place] [facility] [address] [place] [address] CO2 [Moles/Vol] 23 mmol/L Normal 21-31 [facility] [place] Comment on above: Performed By: #### 2 771530, 63341193, 8456332, 50440506, 7651414 #### [facility] [place] [facility] [address] [place] [address] Creatinine [Mass/Vol] 2.1 mg/dL High 0.5-1.3 [facility] Comment on above: Performed By: #### 2 471631, 63043640, 4265405, 68204846, 0128274 #### [facility] [place] [facility] [address] [place] [address] Glucose [Mass/Vol] 89 mg/dL Normal 55-199 [facility] [place] Comment on above: Result Comment: If t his glucose result represents a fasting glucose, interpretation should refer to the following reference range: 55-99 mg/dL Performed By: #### 2 311961, 97896380, 1759550, 09966447, 0811037 #### [facility] [place] [facility] [address] [place] [address] Potassium [Moles/Vol] 4.1 mmol/L Normal 3.5-5.3 [facility] Comment on above: Performed By: #### 2 390750, 40323192, 9614161, 01380774, 1357299 #### [facility] [place] [facility] [address] [place] [address] Sodium [Moles/Vol] 137 mmol/L Normal 135-145 [facility] [place] Comment on above: Performed By: #### 2 477865, 47715952, 2466746, 49106806, 3112085 #### [facility] [place] [facility] [address] [place] [address] Urea nitrogen [Mass/Vol] 26 mg/dL High 5-21 [facility] [place] Comment on above: Performed By: #### 2 327168, 60518146, 6309094, 98346827, 4378323 #### [facility] [place] [facility] [address] [place] [address] Urea nitrogen/Creatinine [Mass ratio] 12 No Units Normal 10-20 [facility] [place] Comment on above: Performed By: #### 2 214223, 13354089, 6655270, 29731273, 0993890 #### [facility] [place] [facility] [address] [place] [address] CBC w/ Auto Diffon 3 Erythrocyte distribution width (RBC) [Ratio] 14.0 % Normal 10.9-14.2 [facility] [place] Comment on above: Performed By: #### 2 762434, 11705454, 2568312, 82531203, 5244892 #### [facility] [place] [facility] [address] [place] [address] Hematocrit (Bld) [Volume fraction] 31.6 % Low 37.7-49.0 [facility] [place] Comment on above: Performed By: #### 2 298322, 87881559, 1782232, 77843025, 3136545 #### [facility] [place] [facility] [address] [place] [address] Hemoglobin (Bld) [Mass/Vol] 10.9 g/dL Low 13.5-17.5 [facility] [place] Comment on above: Performed By: #### 2 152237, 84891829, 8207821, 36875023, 6081832 #### [facility] [place] [facility] [address] [place] [address] MCH (RBC) [Entitic mass] 33.0 pg Normal 27.0-34.0 [facility] [place] Comment on above: Performed By: #### 2 220115, 99214348, 7361566, 79211344, 6704786 #### [facility] [place] [facility] [address] [place] [address] MCHC (RBC) [Mass/Vol] 34.5 g/dL Normal 31.4-36.0 [facility] Comment on above: Performed By: #### 2 598789, 35818593, 3258869, 22535164, 3010245 #### [facility] [place] [facility] [address] [place] [address] MCV (RBC) [Entitic vol] 95.8 fL Normal 80.0-100.0 [facility] [place] Comment on above: Performed By: #### 2 366520, 99208924, 9006682, 29247132, 8879735 #### [facility] [place] [facility] [address] [place], [place] [address] Platelet mean volume (Bld) [Entitic vol] 8.9 fL Normal 6.4-10.8 [facility] [place] Comment on above: Performed By: #### 2 779660, 93517089, 5966488, 09979695, 0216269 #### [facility] [place] [facility] [address] [place] [address] Platelets (Bld) [#/Vol] 151.0 E9/L Normal 150.0-500. 0 [facility] [place] Comment on above: Performed By: #### 2 084399, 76890111, 0480547, 61036339, 7753178 #### [facility] [place] [facility] [address] [place] [address]89[address] RBC (Bld) [#/Vol] 3.3 E12/L Low 4.3-5.9 [facility] [place] Comment on above: Performed By: #### 2 019204, 81417503, 0221770, 61638640, 7261681 #### [facility] [place] [facility] [address] [place] [address] WBC corrected for nucl RBC Auto (Bld) [#/Vol] 5.3 E9/L Normal 4.0-11.0 [facility] [place] Comment on above: Performed By: #### 2 321002, 96345908, 5613455, 04540471, 5915023 #### [facility] [place] [facility] [address] [place] [address] Consent for Treatmenton 08-26 Consent for Treatment [id number]#1.00CD:127 Normal [facility] [place] PT & PTTon 09-14-2022 aPTT Coag (PPP) [Time] 29.7 second(s) Normal 25.1-36.5 [facility] [place] Comment on above: Result Comment: Para meter [...] the same coagulation reagent and instrumentation [place] [facility] [place] Currently there are no coagulation studies available worldwide for children to 14 days, and no normal ranges. Heparin therapeutic range (represented by Anti-Factor Xa activity of 0.2 - 0.4 U/mL) corresponds to PTT of 56.6 - 109.0 sec. Performed By: #### 2 443907, 10470935, 3255676, 69678420, 5587207 #### [facility] [place] [facility] [address] [place] [address] INR Coag (PPP) [Relative time] 1.0 {INR} Invalid Interpretation Code [facility] [place] Comment on above: Result Comment: INR results are specifically intended to assess patients stabilized on long-term Anticoagulation therapy suggested INR?s ?Less Intensive Anticoagulation? 2.0 ? 3.0 Conventional Range 3.0 ? 4.5 Performed By: #### 2 403209, 72401013, 8805158, 03863516, 0081805 #### [facility] [place] [facility] [address] [place] [address] PT Coag (PPP) [Time] 11.7 second(s) Normal 9.4-12.5 [facility] [place] Comment on above: Result Comment: 15 d [...] the same coagulation reagent and instrumentation [place] [facility] [place] Currently there are no coagulation studies available worldwide for children to 14 days, and no normal ranges. Performed By: #### 2 280771, 82529944, 1064824, 19884374, 1955699 #### [facility] [place] [facility] [address] [place] [address] PTH INTACTon 09-14-2022 PTH, Intact 51 pg/mL Normal 15-65 [facility] Comment on above: Performed By: #### T SH, LIPID, T4, FT3, CMP #### [facility] [address] [place], [place] [address] Dr. Alicia Patel UA With Cult Reflexon 2022 Bacteria LM Ql (Urine sed) TRACE Normal Trace [facility] [place] Comment on above: Performed By: #### 2 709810, 60675439, 9357338, 97503384, 3744375 #### [facility] [place] [facility] [address] [place] [address] Bilirubin Ql (U) Negative Normal Negative [facility] [place] Comment on above: Performed By: #### 2 391754, 18938747, 6769016, 37668884, 4742917 #### [facility] [place] [facility] [address] [place] [address] Clarity (U) CLOUDY Abnormal Clear [facility] [place] Comment on above: Performed By: #### 2 821933, 29210396, 7321398, 56478772, 0607588 #### [facility] [place] [facility] [address] [place] [address] Color (U) YELLOW Normal Yellow [facility] [place] Comment on above: Performed By: #### 2 877264, 37537620, 9438170, 71648609, 3355186 #### [facility] [place] [facility] [address] [place] [address] Epithelial cells.squamous LM.HPF (Urine sed) [#/Area] 0-2 Normal 0-2 [facility] [place] Comment on above: Performed By: #### 2 287184, 71192276, 3361466, 29230501, 9135961 #### [facility] [place] [facility] [address] [place] [address] Glucose Test strip (U) [Mass/Vol] Negative Normal Negative [facility] [place] Comment on above: Performed By: #### 2 521848, 57613102, 6282880, 61848574, 8160569 #### [facility] [place] [facility] [address] [place] [address] Hemoglobin Ql (U) 3+ Abnormal Negative [facility] [place] Comment on above: Performed By: #### 2 007640, 10995945, 7358476, 66146476, 3635520 #### [facility] [place] [facility] [address] [place] [address] Ketones (U) [Mass/Vol] Negative Normal Negative Fi [facility] Comment on above: Performed By: #### 2 039577, 04627529, 7025718, 51022909, 1401716 #### [facility] [place] [facility] [address] [place] [address] [place].plasma/[place] .RBC (Bld) [Mass ratio] >30 Abnormal 0-3 [facility] [place] Comment on above: Performed By: #### 2 677014, 27488515, 3475267, 92643605, 8488572 #### [facility] [place] [facility] [address] [place] [address] Mucus Ql (Urine sed) TRACE Normal [facility] Comment on above: Performed By: #### 2 271252, 99533617, 4411669, 44097643, 5572634 #### [facility] [place] [facility] [address] [place] [address] Nitrite Ql (U) Negative Normal Negative [facility] [place] Comment on above: Performed By: #### 2 053094, 07928050, 3947200, 91468065, 8120531 #### [facility] [place] [facility] [address] [place] [address] pH (U) 6.0 [pH] Invalid Interpretation Code 5.0-9.0 [facility] [place] Comment on above: Performed By: #### 2 756014, 34845756, 3041518, [id number], [id number] #### [facility] [address] [place] [address] 23419 Protein (U) [Mass/Vol] 2+ Abnormal Negative Fi [facility] Comment on above: Performed By: #### 2 [id number], [id number], 7598742, [id number], 8743332 #### [facility] [address] [place] [address] Specific gravity (U) [Rel density] 1.025 Invalid Interpretation Code 1.005-1.03 0 [facility] Comment on above: Performed By: #### 2 [id number], [id number], 9431553, [id number], [id number] #### [facility] [address] [place] [address] 24615 Type of Urine collection method Clean Catch Normal [facility] Comment on above: Performed By: #### 2 [id number], [id number], 5530920, [id number], [id number] #### [facility] [address] [place] [address] Urobilinogen Qn (U) 0.2 {Wil'U}/dL Normal 0.0-1.0 [facility] Comment on above: Performed By: #### 2 [id number], [id number], 5834747, [id number], 6103716 #### [facility] [address] [place] [address] WBC Auto Ql (U) TRACE Abnormal Negative [facility] Comment on above: Performed By: #### 2 691562, [id number], 7755866, 24285612, [id number] #### [facility] [address] [place] [address] WBC casts LM.LPF (Urine sed) [#/Area] 0-3 Normal [facility] Comment on above: Performed By: #### 2 929509, [id number], 7136001, 05957546, 1707373 #### [facility] [address] [place] [address] WBC LM.HPF (Urine sed) [#/Area] 0-5 Normal 0-5 [facility] Comment on above: Performed By: #### 2 [id number], [id number], 7069648, 65966153, 7305241 #### [facility] [address] [place] [address]304 XR Chest 2 Viewson 3 XR Chest [...] mGy = na DAP = na Normal [facility] eGFRon 09-14-2022 GFR/1.73 sq M.predicted among blacks MDRD (S/P/Bld) [Vol rate/Area] 37 mL/min/1.73 m2 Low >=59 [facility] Comment on above: Order Comment: Order added by Discern Expert. Result Comment: eGFR is race adjusted. AA=. Performed By: #### 2 [id number], [id number], 9345405, 24260905, 9047503 #### [facility] [address] [place] [address] GFR/1.73 sq M.predicted among non-blacks MDRD (S/P/Bld) [Vol rate/Area] 31 mL/min/1.73 m2 Low >=59 [facility] Comment on above: Order Comment: Order added by Discern Expert. Result Comment: Supervisor [employer] christa kidney disease could be indicated at eGFR's of less than 60 mL/min/1.73m2. Kidney failure is indicated at less than 15 mL/min/1.73m2. Performed By: #### 2 [id number], [id number], 1378105, [id number], [id number] #### [facility] [address] [place] [address] HEMOGRAM AND PLATELon 2022 Hematocrit (Bld) [Volume fraction] 32.9 % Critically low 42.0-54.0 [facility] Comment on above: Performed By: #### T SH, LIPID, T4, FT3, CMP #### [facility] [address] [address] [address] Alicia Patel Hemoglobin (Bld) [Mass/Vol] 10.9 g/dL Critically low 14.0-18.0 [facility] Comment on above: Performed By: #### T SH, LIPID, T4, FT3, CMP #### [facility] [address] [place] [address] Dr. Alicia Patel MCH (RBC) [Entitic mass] 32.6 pg Normal 25.9-34.0 [facility] Comment on above: Performed By: #### T SH, LIPID, T4, FT3, CMP #### [facility] [address] [place] [address] Dr. Alicia Patel MCHC (RBC) [Mass/Vol] 33.1 g/dL Normal 29.9-35.2 [facility] Comment on above: Performed By: #### T SH, LIPID, T4, FT3, CMP #### [facility] [address] [place] [address] Dr. Alicia Patel MCV (RBC) [Entitic vol] 98.5 fL Critically high 80.0-94.0 [facility] Comment on above: Performed By: #### T SH, LIPID, T4, FT3, CMP #### [facility] [address] [place] [address] Dr. Alicia Patel PLT 145 103/ul Critically low 150-450 [facility] Comment on above: Performed By: #### T SH, LIPID, T4, FT3, CMP #### [facility] [address] [place] [address] Dr. Alicia Patel RBC 3.34 106/ul Critically low 4.70-6.10 [facility] Comment on above: Performed By: #### T SH, LIPID, T4, FT3, CMP #### [facility] [address] [place] [address] Dr. Alicia Patel WBC 5.1 103/ul Normal 4.0-11.0 [facility] Comment on above: Performed By: #### T SH, LIPID, T4, FT3, CMP #### [facility] [address] [place] [address] Dr. Alicia Patel MAGNESIUMon 09-13-2022 Magnesium [Mass/Vol] 1.5 mg/dL Critically low 1.8-2.4 [facility] Comment on above: Performed By: #### T SH, LIPID, T4, FT3, CMP #### [facility] [address] [address] [address] Alicia Patel RENAL FUNCTION PANELon 09-13 Albumin [Mass/Vol] 3.5 g/dL Normal 3.4-5.0 [facility] Comment on above: Performed By: #### U RTPCR #### [facility] [address] [address] [address] Alicia Patel Calcium [Mass/Vol] 8.4 mg/dL Critically low 8.5-10.1 [facility] Comment on above: Performed By: #### U RTPCR #### [facility] [address] [place] [address] Dr. Alicia Patel Chloride [Moles/Vol] 107 mmol/L Normal 98-107 [facility] Comment on above: Performed By: #### U RTPCR #### [facility] [address] [place] [address] Dr. Alicia Patel CO2 [Moles/Vol] 25.1 mmol/L Normal 21.0-32.0 [facility] Comment on above: Performed By: #### U RTPCR #### [facility] [address] [place] [address] Dr. Alicia Patel Creatinine [Mass/Vol] 1.96 mg/dL Critically high 0.70-1.30 [facility] Comment on above: Performed By: #### U RTPCR #### [facility] [address] [place] [address] Dr. Alicia Patel EGFR-AF SAMMARINESE 40 mL/min/1.73m2 Critically low >=60 [facility] Comment on above: Performed By: #### U RTPCR #### [facility] [address] [address] [address] Alicia Patel EGFR-NON AF SAMMARINESE 33 mL/min/1.73m2 Critically low >=60 [facility] Comment on above: Performed By: #### U RTPCR #### [facility] [address] [address] [address] Alicia Patel Glucose [Mass/Vol] 151 mg/dL Critically high 74-106 [facility] Comment on above: Performed By: #### U RTPCR #### [facility] [address] [address] [address] Alicia Patel Phosphate [Mass/Vol] 3.5 mg/dL Normal 2.6-4.7 [facility] Comment on above: Performed By: #### U RTPCR #### [facility] [address] [place] [address] Dr. Alicia Patel Potassium [Moles/Vol] 4.3 mmol/L Normal 3.5-5.1 [facility] Comment on above: Performed By: #### U RTPCR #### [facility] [address] [place] [address] Dr. Alicia Patel Sodium [Moles/Vol] 142 mmol/L Normal 136-145 [facility] Comment on above: Performed By: #### U RTPCR #### [facility] [address] [place] [address] Dr. Alicia Patel Urea nitrogen [Mass/Vol] 23.0 mg/dL Critically high 7.0-18.0 [facility] Comment on above: Performed By: #### U RTPCR #### [facility] [address] [place] [address] Dr. Alicia Patel UA RANDOM W/MICROSCOPICon BACTERIA TRACE Abnormal NONE SEEN [facility] Comment on above: Performed By: #### T SH, LIPID, T4, FT3, CMP #### [facility] [address] [place] [address] Dr. Alicia Patel Bilirubin Ql (U) Negative Normal NEGATIVE [facility] Comment on above: Performed By: #### T SH, LIPID, T4, FT3, CMP #### [facility] [address] [place] [address] Dr. Alicia Patel CAST NONE SEEN Normal NONE SEEN [facility] Comment on above: Performed By: #### T SH, LIPID, T4, FT3, CMP #### [facility] [address] [address] [address] Alicia Patel Clarity (U) CLEAR Normal CLEAR [facility] Comment on above: Performed By: #### T SH, LIPID, T4, FT3, CMP #### [facility] [address] [address] [address] Alicia Patel Color (U) LT. YELLOW Normal YELLOW [facility] Comment on above: Performed By: #### T SH, LIPID, T4, FT3, CMP #### [facility] [address] [address] [address] Alicia Patel Crystals LM Nom (Urine sed) NONE SEEN Normal NONE SEEN [facility] Comment on above: Performed By: #### T SH, LIPID, T4, FT3, CMP #### [facility] [address] [place] [address] Dr. Alicia Patel Epithelial cells LM Ql (Urine sed) RARE Normal NONE SEEN /RARE [facility] Comment on above: Performed By: #### T SH, LIPID, T4, FT3, CMP #### [facility] [address] [place] [address] Dr. Alicia Patel Glucose Ql (U) 500 mg/dl Abnormal NEGATIVE [facility] Comment on above: Performed By: #### T SH, LIPID, T4, FT3, CMP #### [facility] [address] [place] [address] Dr. Alicia Patel Hemoglobin Ql (U) LARGE Abnormal NEGATIVE [facility] Comment on above: Performed By: #### T SH, LIPID, T4, FT3, CMP #### [facility] [address] [address] [address] Alicia Patel Ketones Ql (U) Negative Normal NEGATIVE [facility] Comment on above: Performed By: #### T SH, LIPID, T4, FT3, CMP #### [facility] [address] [address] [address] Alicia Patel LEUKOCYTES Negative Normal NEGATIVE [facility] Comment on above: Performed By: #### T SH, LIPID, T4, FT3, CMP #### [facility] [address] [place] [address] Dr. Alicia Patel MUCOUS NONE SEEN Normal NONE SEEN [facility] Comment on above: Performed By: #### T SH, LIPID, T4, FT3, CMP #### [facility] [address] [place] [address] Dr. Alicia Patel Nitrite Ql (U) Negative Normal NEGATIVE [facility] Comment on above: Performed By: #### T SH, LIPID, T4, FT3, CMP #### [facility] [address] [place] [address] Dr. Alicia Patel pH (U) 6.0 [pH] Normal 5-9 [facility] Comment on above: Performed By: #### T SH, LIPID, T4, FT3, CMP #### [facility] [address] [place] [address] Dr. Alicia Patel RBC 20-50 Abnormal 0-2 [facility] Comment on above: Performed By: #### T SH, LIPID, T4, FT3, CMP #### [facility] [address] [place] [address] Dr. Alicia Patel SPEC GRAVITY 1.020 Normal 1.005-<=1. 025 [facility] Comment on above: Performed By: #### T SH, LIPID, T4, FT3, CMP #### [facility] [address] [place] [address] Dr. Alicia Patel UA PROTEIN 100 mg/dl Abnormal NEGATIVE/ TRACE [facility] Comment on above: Performed By: #### T SH, LIPID, T4, FT3, CMP #### [facility] [address] [place] [address] Dr. Alicia Patel Urobilinogen Qn (U) 0.2 {Wil'U}/dL Normal 0.2 - 1. 0 [facility] Comment on above: Performed By: #### T SH, LIPID, T4, FT3, CMP #### [facility] [address] [place] [address] Dr. Alicia Patel WBC 0-2 Abnormal NONE SEEN [facility] Comment on above: Performed By: #### T SH, LIPID, T4, FT3, CMP #### [facility] [address] [place] [address] Dr. Alicia Patel URIC ACID SERUMon 09-13-2022 Urate [Mass/Vol] 5.8 mg/dL Normal 3.5-7.2 [facility] Comment on above: Performed By: #### U RTPCR #### [facility] [address] [place] [address] Dr. Alicia Patel URINE T PROTEIN CREAT RATIOo n 09-13-2022 Protein (U) [Mass/Vol] 122.4 mg/dL Critically high <=12.0 [facility] Comment on above: Performed By: #### U RTPCR #### [facility] [address] [place] [address] Dr. Alicia Patel UR PROT CREAT RAT 1.38 Normal [facility] Comment on above: Performed By: #### U RTPCR #### [facility] [address] [place] [address] Dr. Alicia Patel URINE CREAT 88.74 mg/dL Normal 20.00-300. 00 [facility] Comment on above: Performed By: #### U RTPCR #### [facility] [address] [place] [address] Dr. Alicia Patel VITAMIN D 25 OHon 09-13-2022 VIT D 25-OH 58.0 ng/mL Normal [facility] Comment on above: Performed By: #### T SH, LIPID, T4, FT3, CMP #### [facility] [address] [place] [address] Dr. Alicia Patel VIT D RANGES SEE BELOW Normal [facility] Comment on above: Result Comment: <20 ng/mL Vit D deficient 20 - <30 ng/mL Vit D insufficient 30 - 100 ng/mL Vit D sufficient >100 ng/mL Potential Toxicity Performed By: #### T SH, LIPID, T4, FT3, CMP #### [facility] [address] [place] [address] Dr. Alicia Patel Pre-Certification Formon Pre-Certification Form [id number]#[id number]:127 Normal [facility] RAD - Ultrasound Reporton RAD - Ultrasound Report [id number]#1.00CD:127 Normal [facility] Screenson 09-07-2022 Screens [id number]:12 7 Normal [facility] Patient Educationon 09-07-19 Patient Education Urology Kidney [...] these instructions at home: Medicines ? Take [id number] and prescription medicines only as told by [...] 11/29/2008 Document Revised: 10/30/2019 Document Reviewed: 10/30/2019 [employer] Patient Education ? 2019 [employer]. [facility] Urology Office/Clinic Noteon 09-06-2022 Urology Office/Clinic Note Chief Complaint Pt is here for [facility] f/u HPI Staff Victorino is a 82 y.o. male here for hospital follow up. Pt was seen at [facility]. Previous Dx: acute kidney failure, BPH w/ [...] for shortness of breath. Pt presented to [facility] later that evening on 08/11/22 for abdominal [...] CT scan performed at the [facility]. The options include both nephroscopic/ureteroscopic approach [...] off asp (more content not included)... Normal [facility] Comment on above: Result Comment: Elec tronically [...] Date: 2022-09-01 09:33 Normal [facility] PSA, FREE AND TOTAL RATIOon 08-25-2022 % Free PSA 13.7 % Normal [facility] Comment on above: Result Comment: The [...] LIPID, T4, FT3, CMP #### [facility] [address] [place] [address] Dr. Alicia Patel Prostate specific Ag [Mass/Vol] 6.2 ng/mL Critically high 0.0-4.0 [facility] Comment on above: Result Comment: Dwight JUAREZ methodology. . According to the [place] [employer], Serum PSA should decrease and [...] LIPID, T4, FT3, CMP #### [facility] [address] [place] [address] Dr. Alicia Patel PSA, Free 0.85 ng/mL Normal N/A [facility] Comment on above: Result Comment: Dwight linares ECLIA methodology. Performed By: #### T SH, LIPID, T4, FT3, CMP #### [facility] [address] [place] [address] Dr. Alicia Patel OCC BLD IMMUNO SCREENon 07-29 OCCULT BLOOD Negative Normal NEGATIVE [facility] Comment on above: Performed By: #### T SH, LIPID, T4, FT3, CMP #### [facility] [address] [place] [address] Dr. Alicia Patel CBC AUTO DIFFon 08-21-2022 BASO # 0.0 103/ul Normal 0.0-0.1 [facility] Comment on above: Performed By: #### U RTPCR #### [facility] [address] [place] [address] Dr. Alicia Patel Basophils/100 WBC (Bld) 0.3 % Normal 0.2-2.0 [facility] Comment on above: Performed By: #### U RTPCR #### [facility] [address] [place] [address] Dr. Alicia Patel EO # 0.2 103/ul Normal 0.0-0.7 [facility] Comment on above: Performed By: #### U RTPCR #### [facility] [address] [place] [address] Dr. Alicia Patel Eosinophils/100 WBC (Bld) 3.2 % Normal 0.9-7.0 [facility] Comment on above: Performed By: #### U RTPCR #### [facility] [address] [place] [address] Dr. Alicia Patel Erythrocyte distribution width (RBC) [Ratio] 12.9 % Normal 11.0-15.0 [facility] Comment on above: Performed By: #### U RTPCR #### [facility] [address] [place] [address] Dr. Alicia Patel Hematocrit (Bld) [Volume fraction] 35.4 % Critically low 42.0-54.0 [facility] Comment on above: Performed By: #### U RTPCR #### [facility] [address] [place] [address] Dr. Alicia Patel Hemoglobin (Bld) [Mass/Vol] 11.7 g/dL Critically low 14.0-18.0 [facility] Comment on above: Performed By: #### U RTPCR #### [facility] [address] [place] [address] Dr. Alicia Patel IG # 0.08 10e3/ul Critically high 0.00-0.03 [facility] Comment on above: Performed By: #### U RTPCR #### [facility] [address] [place] [address] Dr. Alicia Patel IG % 1.2 % Critically high 0.0-0.5 [facility] Comment on above: Performed By: #### U RTPCR #### [facility] [address] [place] [address] Dr. Alicia Patel LYMPH # 1.1 103/ul Critically low 1.2-3.8 [facility] Comment on above: Performed By: #### U RTPCR #### [facility] [address] [place] [address] Dr. Alicia Patel Lymphocytes/100 WBC (Bld) 16.6 % Critically low 20.5-60.0 [facility] Comment on above: Performed By: #### U RTPCR #### [facility] [address] [place] [address] Dr. Alicia Patel MANUAL DIFF REQ NO Normal [facility] Comment on above: Performed By: #### U RTPCR #### [facility] [address] [place] [address] Dr. Alicia Patel MCH (RBC) [Entitic mass] 32.4 pg Normal 25.9-34.0 [facility] Comment on above: Performed By: #### U RTPCR #### [facility] [address] [place] [address] Dr. Alicia Patel MCHC (RBC) [Mass/Vol] 33.1 g/dL Normal 29.9-35.2 [facility] Comment on above: Performed By: #### U RTPCR #### [facility] [address] [place] [address] Dr. Alicia Patel MCV (RBC) [Entitic vol] 98.1 fL Critically high 80.0-94.0 [facility] Comment on above: Performed By: #### U RTPCR #### [facility] [address] [place] [address] Dr. Alicia Patel MONO # 0.6 103/ul Normal 0.3-0.8 [facility] Comment on above: Performed By: #### U RTPCR #### [facility] [address] [place] [address] Dr. Alicia Patel Monocytes/100 WBC (Bld) 8.8 % Normal 1.7-12.0 [facility] Comment on above: Performed By: #### U RTPCR #### [facility] [address] [place] [address] Dr. Alicia Patel NEUT # 4.8 103/ul Normal 1.4-6.5 [facility] Comment on above: Performed By: #### U RTPCR #### [facility] [address] [place] [address] Dr. Alicia Patel Neutrophils/100 WBC (Bld) 69.9 % Normal 43.0-75.0 [facility] Comment on above: Performed By: #### U RTPCR #### [facility] [address] [place] [address] Dr. Alicia Patel Platelet mean volume (Bld) [Entitic vol] 10.4 fL Normal 9.5-13.5 [facility] Comment on above: Performed By: #### U RTPCR #### [facility] [address] [place] [address] Dr. Alicia Patel PLT 200 103/ul Normal 150-450 [facility] Comment on above: Performed By: #### U RTPCR #### [facility] [address] [place] [address] Dr. Alicia Patel RBC 3.61 106/ul Critically low 4.70-6.10 [facility] Comment on above: Performed By: #### U RTPCR #### [facility] [address] [address] [address] Alicia Patel WBC 6.8 103/ul Normal 4.0-11.0 [facility] Comment on above: Performed By: #### U RTPCR #### [facility] [address] [place] [address] Dr. Alicia Patel FREE T3on 08-21-2022 FREE T3 1.91 pg/mlL Critically low 2.18-3.98 [facility] Comment on above: Performed By: #### T SH, LIPID, T4, FT3, CMP #### [facility] [address] [place] [address] Dr. Alicia Patel GLYCOHEMOGLOBIN A1Con 2022 ADA RECOMMENDATION SEE BELOW Normal [facility] Comment on above: Result Comment: ADA RECOMMENDED LIMIT 4.0 - 6.0 ADA THERAPEUTIC TARGET < 7.0 ACTION SUGGESTED > 7.0 Performed By: #### T SH, LIPID, T4, FT3, CMP #### [facility] [address] [place] [address] Dr. Alicia Patel Glucose [Mass/Vol] 194 mg/dL Normal [facility] Comment on above: Performed By: #### T SH, LIPID, T4, FT3, CMP #### [facility] [address] [place] [address] Dr. Alicia Patel HbA1c (Bld) [Mass fraction] 8.4 % Critically high 4.5-6.2 [facility] Comment on above: Performed By: #### T SH, LIPID, T4, FT3, CMP #### [facility] [address] [place] [address] Dr. Alicia Patel LIPID PROFILEon 08-21-2022 CHOL-HDL RATIO NORM SEE BELOW Normal [facility] Comment on above: Result Comment: 3.3 - 4.4 LOW RISK 4.4 - 7.1 AVERAGE RISK 7.1 - 11.0 MODERATE RISK >11.0 HIGH RISK Performed By: #### T SH, LIPID, T4, FT3, CMP #### [facility] [address] [place] [address] Dr. Alicia Patel Cholesterol [Mass/Vol] 120 mg/dL Normal <=200 [facility] Comment on above: Performed By: #### T SH, LIPID, T4, FT3, CMP #### [facility] [address] [place] [address] Dr. Alicia Patel Cholesterol in HDL [Mass/Vol] 30 mg/dL Critically low 40-60 [facility] Comment on above: Performed By: #### T SH, LIPID, T4, FT3, CMP #### [facility] [address] [place] [address] Dr. Alicia Patel Cholesterol in LDL [Mass/Vol] 59.8 mg/dL Normal [facility] Comment on above: Performed By: #### T SH, LIPID, T4, FT3, CMP #### [facility] [address] [place] [address] Dr. Alicia Patel Cholesterol.total/Chol esterol in HDL [Mass ratio] 4.0 {ratio} Normal [facility] Comment on above: Performed By: #### T SH, LIPID, T4, FT3, CMP #### [facility] [address] [place] [address] Dr. Alicia Patel HDL NORMAL > or = 60 mg/dl - LO W CARDIOVASCULAR RISK <40 mg/dl - HIGH CARDIOVASCULAR RISK Normal [facility] Comment on above: Performed By: #### T SH, LIPID, T4, FT3, CMP #### [facility] [address] [place] [address] Dr. Alicia Patel LDL CALC NORMAL SEE BELOW Normal [facility] Comment on above: Result Comment: <100 mg/dl OPTIMAL 100 - 129 mg/dl NEAR OR ABOVE OPTIMAL 130 - 159 mg/dl BORDERLINE HIGH 160 - 189 mg/dl HIGH >190 mg/dl VERY HIGH Performed By: #### T SH, LIPID, T4, FT3, CMP #### [facility] [address] [address] [address] Alicia Patel Triglyceride [Mass/Vol] 151 mg/dL Critically high <=150 [facility] Comment on above: Performed By: #### T SH, LIPID, T4, FT3, CMP #### [facility] [address] [address] [address] Alicia Patel VLDL CALC 30.2 mg/dL Normal [facility] Comment on above: Performed By: #### T SH, LIPID, T4, FT3, CMP #### [facility] [address] [address] [address] Alicia Patel PROF 14(COMP METB)on 023 Albumin [Mass/Vol] 3.3 g/dL Critically low 3.4-5.0 [facility] Comment on above: Performed By: #### T SH, LIPID, T4, FT3, CMP #### [facility] [address] [place] [address] Dr. Alicia Patel Albumin/Globulin [Mass ratio] 0.9 {ratio} Normal [facility] Comment on above: Performed By: #### T SH, LIPID, T4, FT3, CMP #### [facility] [address] [place] [address] Dr. Alicia Patel ALP [Catalytic activity/Vol] 79 U/L Normal 46-116 [facility] Comment on above: Performed By: #### T SH, LIPID, T4, FT3, CMP #### [facility] [address] [place] [address] Dr. Alicia Patel ALT [Catalytic activity/Vol] 61 U/L Normal 16-63 [facility] Comment on above: Performed By: #### T SH, LIPID, T4, FT3, CMP #### [facility] [address] [place] [address] Dr. Alicia Patel Anion gap [Moles/Vol] 12.6 mmol/L Normal [facility] Comment on above: Performed By: #### T SH, LIPID, T4, FT3, CMP #### [facility] [address] [place] [address] Dr. Alicia Patel AST [Catalytic activity/Vol] 39 U/L Critically high 15-37 [facility] Comment on above: Performed By: #### T SH, LIPID, T4, FT3, CMP #### [facility] [address] [place] [address] Dr. Alicia Patel Bilirubin [Mass/Vol] 0.7 mg/dL Normal 0.2-1.0 [facility] Comment on above: Performed By: #### T SH, LIPID, T4, FT3, CMP #### [facility] [address] [place] [address] Dr. Alicia Patel Calcium [Mass/Vol] 8.9 mg/dL Normal 8.5-10.1 [facility] Comment on above: Performed By: #### T SH, LIPID, T4, FT3, CMP #### [facility] [address] [place] [address] Dr. Alicia Patel Chloride [Moles/Vol] 111 mmol/L Critically high 98-107 [facility] Comment on above: Performed By: #### T SH, LIPID, T4, FT3, CMP #### [facility] [address] [place] [address] Dr. Alicia Patel CO2 [Moles/Vol] 24.0 mmol/L Normal 21.0-32.0 [facility] Comment on above: Performed By: #### T SH, LIPID, T4, FT3, CMP #### [facility] [address] [place] [address] Dr. Alicia Patel Creatinine [Mass/Vol] 1.80 mg/dL Critically high 0.70-1.30 [facility] Comment on above: Performed By: #### T SH, LIPID, T4, FT3, CMP #### [facility] [address] [place] [address] Dr. Alicia Patel EGFR-AF SAMMARINESE 44 mL/min/1.73m2 Critically low >=60 [facility] Comment on above: Performed By: #### T SH, LIPID, T4, FT3, CMP #### [facility] [address] [place] [address] Dr. Alicia Patel EGFR-NON AF SAMMARINESE 36 mL/min/1.73m2 Critically low >=60 [facility] Comment on above: Performed By: #### T SH, LIPID, T4, FT3, CMP #### [facility] [address] [place] [address] Dr. Alicia Patel Globulin (S) [Mass/Vol] 3.5 g/dL Normal [facility] Comment on above: Performed By: #### T SH, LIPID, T4, FT3, CMP #### [facility] [address] [place] [address] Dr. Alicia Patel Glucose [Mass/Vol] 118 mg/dL Critically high 74-106 [facility] Comment on above: Performed By: #### T SH, LIPID, T4, FT3, CMP #### [facility] [address] [place] [address] Dr. Alicia Patel Potassium [Moles/Vol] 4.6 mmol/L Normal 3.5-5.1 [facility] Comment on above: Performed By: #### T SH, LIPID, T4, FT3, CMP #### [facility] [address] [place] [address] Dr. Alicia Patel Protein [Mass/Vol] 6.8 g/dL Normal 6.4-8.2 [facility] Comment on above: Performed By: #### T SH, LIPID, T4, FT3, CMP #### [facility] [address] [place] [address] Dr. Alicia Patel Sodium [Moles/Vol] 143 mmol/L Normal 136-145 [facility] Comment on above: Performed By: #### T SH, LIPID, T4, FT3, CMP #### [facility] [address] [place] [address] Dr. Alicia Patel Urea nitrogen [Mass/Vol] 31.0 mg/dL Critically high 7.0-18.0 [facility] Comment on above: Performed By: #### T SH, LIPID, T4, FT3, CMP #### [facility] [address] [place] [address] Dr. Alicia Patel Urea nitrogen/Creatinine [Mass ratio] 17.2 mg/mg Normal [facility] Comment on above: Performed By: #### T SH, LIPID, T4, FT3, CMP #### [facility] [address] [place] [address] Dr. Alicia Patel T4on 08-21-2022 T4 [Mass/Vol] 7.70 ug/dL Normal 4.50-12.10 [facility] Comment on above: Performed By: #### T SH, LIPID, T4, FT3, CMP #### [facility] [address] [place] [address] Dr. Alicia Patel TSHon 08-21-2022 TSH 1.138 uIU/mL Normal 0.358-3.74 0 [facility] Comment on above: Performed By: #### T SH, LIPID, T4, FT3, CMP #### [facility] [address] [place] [address] Dr. Alicia Patel RENAL FUNCTION PANELon 08-18 Albumin [Mass/Vol] 3.3 g/dL Critically low 3.4-5.0 [facility] Comment on above: Performed By: #### U RTPCR #### [facility] [address] [place] [address] Dr. Alicia Patel Calcium [Mass/Vol] 8.3 mg/dL Critically low 8.5-10.1 [facility] Comment on above: Performed By: #### U RTPCR #### [facility] [address] [place] [address] Dr. Alicia Patel Chloride [Moles/Vol] 109 mmol/L Critically high 98-107 [facility] Comment on above: Performed By: #### U RTPCR #### [facility] [address] [place] [address] Dr. Alicia Patel CO2 [Moles/Vol] 22.1 mmol/L Normal 21.0-32.0 [facility] Comment on above: Performed By: #### U RTPCR #### [facility] [address] [place] [address] Dr. Alicia Patel Creatinine [Mass/Vol] 2.14 mg/dL Critically high 0.70-1.30 [facility] Comment on above: Performed By: #### U RTPCR #### [facility] [address] [address] [address] Alicia Patel EGFR-AF SAMMARINESE 36 mL/min/1.73m2 Critically low >=60 [facility] Comment on above: Performed By: #### U RTPCR #### [facility] [address] [address] [address] Alicia Patel EGFR-NON AF SAMMARINESE 30 mL/min/1.73m2 Critically low >=60 [facility] Comment on above: Performed By: #### U RTPCR #### [facility] [address] [place] [address] Dr. Alicia Patel Glucose [Mass/Vol] 102 mg/dL Normal 74-106 [facility] Comment on above: Performed By: #### U RTPCR #### [facility] [address] [address] [address] Alicia Patel Phosphate [Mass/Vol] 3.1 mg/dL Normal 2.6-4.7 [facility] Comment on above: Performed By: #### U RTPCR #### [facility] [address] [place] [address] Dr. Alicia Patel Potassium [Moles/Vol] 3.9 mmol/L Normal 3.5-5.1 [facility] Comment on above: Performed By: #### U RTPCR #### [facility] [address] [place] [address] Dr. Alicia Patel Sodium [Moles/Vol] 141 mmol/L Normal 136-145 [facility] Comment on above: Performed By: #### U RTPCR #### [facility] [address] [address] [address] Alicia Patel Urea nitrogen [Mass/Vol] 41.0 mg/dL Critically high 7.0-18.0 [facility] Comment on above: Performed By: #### U RTPCR #### [facility] [address] [address] [address] Alicia Patel ED Note-Physicianon 08-17-19 ED Note-Physician [id number]:127 Normal [facility] [place] RAD - CT Reporton 08-17-2022 RAD - CT Report [id number]#[id number]:127 Normal [facility] [place] RAD - MISCon 08-17-2022 RAD - MISC [id number]#[id number]:127 Normal [facility] [place] RAD - MISC [id number]#[id number]:127 [facility] Insurance Correspondence Off iceon 08-16-2022 Insurance Correspondence Office [id number]:127 Normal [facility] [place] Creatinine and Glomerular fi ltration rate.predicted panel (S/P/Bld)Ordered By: Hiral Interiano on 08-15-2022 Creatinine [Mass/Vol] 3.46 mg/dL 0.64-1.27 [facility] Comment on above: Delta: 6.60 on 08/14 Estimated glomerular filtrat ion rate (GFR) non- AmericanOrdered By: Hiral Interiano on 08-15-2022 GFR/1.73 sq M.predicted among non-blacks MDRD (S/P/Bld) [Vol rate/Area] 17 mL/Min [facility] Glucose Glucometer (BldC) [M ass/Vol]Ordered By: Hiral Interiano on 08-15-2022 Glucose [Mass/Vol] 135 mg/dL [facility] Comment on above: Random Glucose Refer ence Range is dependent on time and content of last meal. Glucose of more than 200 mg/dL in a nonstressed, ambulatory subject supports the diagnosis of Diabetes Mellitus. No Panel InformationOrdered By: Hiral Interiano on 08-15-2022 Estimated GFR () 21 mL/Min [facility] Comment on above: GFR estimated refere nce range: According to KDOQI guidelines, <60 ml/min/1.73m2 is sufficient to diagnose a patient with chronic kidney disease. Pharmacy Creatinine Clearance (Chem 21.94 [facility] Serum or plasma anion gap de terminationOrdered By: Hiral Interiano on 08-15-2022 Anion gap [Moles/Vol] 10.3 mmol/L 6.0-15.0 [facility] Serum or plasma calcium alpesh urement (mass/volume)Ordered By: Hiral Interiano on 08-15-2022 Calcium [Mass/Vol] 7.7 mg/dL 8.2-10.2 [facility] Serum or plasma chloride adina surement (moles/volume)Ordered By: Hiral Interiano on 08-15-2022 Chloride [Moles/Vol] 112 mmol/L 95-114 [facility] Serum or plasma glucose alpesh urement (mass/volume)Ordered By: Hiral Interiano on 08-15-2022 Glucose [Mass/Vol] 140 mg/dL 70-100 [facility] Comment on above: ADA recommended refe rence rangeRandom Glucose Reference Range is dependent on time and content of last meal. Glucose of more than 200 mg/dL in a nonstressed, ambulatory subject supports the diagnosis of Diabetes Mellitus. Serum or plasma potassium me asurement (moles/volume)Ordered By: Hiral Interiano on 08-15-2022 Potassium [Moles/Vol] 3.8 mmol/L 3.5-5.1 [facility] Serum or plasma sodium measu rement (moles/volume)Ordered By: Hiral Interiano on 08-15-2022 Sodium [Moles/Vol] 140 mmol/L 136-146 [facility] Serum or plasma total carbon dioxide measurement (moles/volume)Ordered By: Hiral Interiano on 08-15-2022 CO2 [Moles/Vol] 21.5 mmol/L 22.0-30.0 [facility] Serum or plasma urea nitroge n measurement (mass/volume)Ordered By: Hiral Interiano on 08-15-2022 Urea nitrogen [Mass/Vol] 45 mg/dL 9-23 [facility] Basophils Auto (Bld) [#/Vol] Ordered By: Hiral Interiano on 08-14-2022 Basophils (Bld) [#/Vol] 0.0 10*3/uL 0.0-0.2 [facility] Basophils/100 WBC Auto (Bld) Ordered By: Hiral Interiano on 08-14-2022 Basophils/100 WBC (Bld) 0.2 % . [facility] Eosinophils Auto (Bld) [#/Vo l]Ordered By: Hiral Interiano on 08-14-2022 Eosinophils (Bld) [#/Vol] 0.1 10*3/uL 0.0-0.45 [facility] Eosinophils/100 WBC Auto (Bl d)Ordered By: Hiral Interiano on 08-14-2022 Eosinophils/100 WBC (Bld) 1.0 % . [facility] Erythrocyte distribution wid th Auto (RBC) [Ratio]Ordered By: Hiral Interiano on 08-14-2022 Erythrocyte distribution width (RBC) [Ratio] 13.5 % 12.0-14.8 [facility] Hematocrit Auto (Bld) [Volum e fraction]Ordered By: Hiral Interiano on 08-14-2022 Hematocrit (Bld) [Volume fraction] 35.4 % 38.8-50.0 [facility] Hemoglobin [Mass/volume] in BloodOrdered By: Hiral Interiano on 08-14-2022 Hemoglobin (Bld) [Mass/Vol] 12.0 g/dL 13.0-17.0 [facility] Leukocytes [#/volume] correc ike for nucleated erythrocytes in Blood by Automated counOrdered By: Hiral Interiano on 08-14-2022 WBC corrected for nucl RBC Auto (Bld) [#/Vol] 7.4 10*3/uL 4.1-10.5 [facility] Lymphocytes Auto (Bld) [#/Vo l]Ordered By: Hiral Interiano on 08-14-2022 Lymphocytes (Bld) [#/Vol] 0.6 10*3/uL 1.00-4.8 [facility] Lymphocytes/100 WBC Auto (Bl d)Ordered By: Hiral Interiano on 08-14-2022 Lymphocytes/100 WBC (Bld) 7.8 % . [facility] MCH Auto (RBC) [Entitic mass ]Ordered By: Hiral Interiano on 08-14-2022 MCH (RBC) [Entitic mass] 33.0 pg 27.5-35.2 [facility] MCHC Auto (RBC) [Mass/Vol]Or dered By: Hiral Interiano on 08-14-2022 MCHC (RBC) [Mass/Vol] 33.9 g/dL 32.5-35.6 [facility] MCV Auto (RBC) [Entitic vol] Ordered By: Hiral Interiano on 08-14-2022 MCV (RBC) [Entitic vol] 97.3 fL 83.5-101 [facility] Monocytes Auto (Bld) [#/Vol] Ordered By: Hiral Interiano on 08-14-2022 Monocytes (Bld) [#/Vol] 0.8 10*3/uL 0.0-0.8 [facility] Monocytes/100 WBC Auto (Bld) Ordered By: Hiral Interiano on 08-14-2022 Monocytes/100 WBC (Bld) 11.4 % . [facility] Neutrophils Auto (Bld) [#/Vo l]Ordered By: Hiral Interiano on 08-14-2022 Neutrophils (Bld) [#/Vol] 5.9 10*3/uL 1.8-7.7 [facility] Neutrophils/100 WBC Auto (Bl d)Ordered By: Hiral Interiano on 08-14-2022 Neutrophils/100 WBC (Bld) 79.6 % . [facility] No Panel InformationOrdered By: Hiral Interiano on 08-14-2022 Bedside Glucose Comment Glu2: cleaned meter [facility] Nucleated erythrocytes [Pres ence] in Blood by Automated countOrdered By: Hiral Interiano on 08-14-2022 Nucleated RBC Auto Ql (Bld) 0.1 /100{WBC} 0-0.5 [facility] Platelet mean volume Auto (B ld) [Entitic vol]Ordered By: Hiral Interiano on 08-14-2022 Platelet mean volume (Bld) [Entitic vol] 8.4 fL 6.6-10.1 [facility] Platelets Auto (Bld) [#/Vol] Ordered By: Hiral Interiano on 08-14-2022 Platelets (Bld) [#/Vol] 121 10*3/uL 150-450 [facility] RBC Auto (Bld) [#/Vol]Ordere d By: Hiral Interiano on 08-14-2022 RBC (Bld) [#/Vol] 3.64 10*6/uL 3.90-5.60 [facility] WBC Auto (Bld) [#/Vol]Ordere d By: Hiral Interiano on 08-14-2022 WBC (Bld) [#/Vol] 7.4 10*3/uL 4.1-10.5 [facility] Body fluid albumin measureme nt (mass/volume)Ordered By: Alicia Perea on 08-13-2022 Albumin (Body fld) [Mass/Vol] 3.0 g/dL 3.2-5.5 [facility] Operative Reporton 3 Operative Report [id number]#1.00CD:127 Normal [facility] [place] Consultation Noteon 08-12-19 23 Consultation Note [id number]#[id number]:127 Normal [facility] [place] Glucose mean value [Mass/vol ume] in Blood Estimated from glycated hemoglobinOrdered By: Hiral Interiano on 08-12-2022 Average glucose Estimated from glycated hemoglobin (Bld) [Mass/Vol] 212 mg/dL [facility] Hemoglobin A1c percentageOrd ered By: Hiral Interiano on 08-12-2022 HbA1c (Bld) [Mass fraction] 9.0 % 4.3-5.6 [facility] Comment on above: Increased risk for d iabetes: 5.7 - 6.4diabetes: >6.4glycemic control for adults with diabetes: <7.0 Anisocytosis LM Ql (Bld)Orde red By: Hiral Interiano on 08-11-2022 Anisocytosis Ql (Bld) Slight [facility] Band form neutrophils/100 WB C Manual cnt (Bld)Ordered By: Hiral Interiano on 08-11-2022 Band form neutrophils/100 WBC (Bld) 1 % 0-5 [facility] Beta-hydroxybutyric acid adina surementOrdered By: Alicia Perea on 08-11-2022 Beta hydroxybutyrate [Mass/Vol] 2.40 mmol/L 0.05-0.27 [facility] [place] cells [Presence] in Blo od by Light microscopyOrdered By: Hiral Interiano on 08-11-2022 [place] cells LM Ql (Bld) Slight [facility] CARDIAC GUIDO 3-6on 3 CK [Catalytic activity/Vol] 162 U/L Normal 39-308 [facility] Comment on above: Performed By: #### T SH, LIPID, T4, FT3, CMP #### [facility] [address] [address] [address] Alicia ARAIZA.MB [Mass/Vol] 5.52 ng/mL Critically high <=3.60 [facility] Comment on above: Performed By: #### T SH, LIPID, T4, FT3, CMP #### [facility] [address] [place] [address] Dr. Alicia Patel HSTROP 19.7 pg/mL Normal 4.0-76.1 [facility] Comment on above: Result Comment: CUT- OFF POINTS HAVE BEEN ESTABLISHED BASED ON THE FOURTH UNIVERSAL DEFINITIONS OF MYOCARDIAL INFARCTION. THE UPPER REFERENCE LIMIT (URL) OF TROPONIN, DEFINED THE 99TH PERCENTILE OF cTnI DISTRIBUTION IN A REFERENCE POPULATION, HAS BEEN CONFIRMED THE DECISION THRESHOLD FOR GA DIAGNOSIS. Performed By: #### T SH, LIPID, T4, FT3, CMP #### [facility] [address] [address] [address] Alicia Patel CK [Catalytic activity/Vol] 150 U/L Normal 39-308 [facility] Comment on above: Performed By: #### T SH, LIPID, T4, FT3, CMP #### [facility] [address] [address] [address] Yilan Patel CK.MB [Mass/Vol] 4.99 ng/mL Critically high <=3.60 [facility] Comment on above: Performed By: #### T SH, LIPID, T4, FT3, CMP #### [facility] [address] [address] [address] Alicia Patel HSTROP 16.9 pg/mL Normal 4.0-76.1 [facility] Comment on above: Result Comment: CUT- OFF POINTS HAVE BEEN ESTABLISHED BASED ON THE FOURTH UNIVERSAL DEFINITIONS OF MYOCARDIAL INFARCTION. THE UPPER REFERENCE LIMIT (URL) OF TROPONIN, DEFINED THE 99TH PERCENTILE OF cTnI DISTRIBUTION IN A REFERENCE POPULATION, HAS BEEN CONFIRMED THE DECISION THRESHOLD FOR GA DIAGNOSIS. Performed By: #### T SH, LIPID, T4, FT3, CMP #### [facility] [address] [place] [address] Dr. Alicia Patel CARDIAC GUIDO ADMITon 023 CK [Catalytic activity/Vol] 128 U/L Normal 39-308 [facility] Comment on above: Performed By: #### T SH, LIPID, T4, FT3, CMP #### [facility] [address] [address] [address] Alicia Patel CK.MB [Mass/Vol] 4.95 ng/mL Critically high <=3.60 [facility] Comment on above: Performed By: #### T SH, LIPID, T4, FT3, CMP #### [facility] [address] [place] [address] Dr. Alicia Patel HSTROP 18.0 pg/mL Normal 4.0-76.1 [facility] Comment on above: Result Comment: CUT- OFF POINTS HAVE BEEN ESTABLISHED BASED ON THE FOURTH UNIVERSAL DEFINITIONS OF MYOCARDIAL INFARCTION. THE UPPER REFERENCE LIMIT (URL) OF TROPONIN, DEFINED THE 99TH PERCENTILE OF cTnI DISTRIBUTION IN A REFERENCE POPULATION, HAS BEEN CONFIRMED THE DECISION THRESHOLD FOR GA DIAGNOSIS. Performed By: #### T SH, LIPID, T4, FT3, CMP #### [facility] [address] [place] [address] Dr. Alicia Patel LIZZY 188 ng/mL Critically high 16-96 [facility] Comment on above: Performed By: #### T SH, LIPID, T4, FT3, CMP #### [facility] [address] [place] [address] Dr. Alicia Patel CBC AUTO DIFFon 08-11-2022 BASO # 0.0 103/ul Normal 0.0-0.1 [facility] Comment on above: Performed By: #### T SH, LIPID, T4, FT3, CMP #### [facility] [address] [place] [address] Dr. Alicia Patel Basophils/100 WBC (Bld) 0.3 % Normal 0.2-2.0 [facility] Comment on above: Performed By: #### T SH, LIPID, T4, FT3, CMP #### [facility] [address] [place] [address] Dr. Alicia Patel EO # 0.2 103/ul Normal 0.0-0.7 [facility] Comment on above: Performed By: #### T SH, LIPID, T4, FT3, CMP #### [facility] [address] [place] [address] Dr. Alicia Patel Eosinophils/100 WBC (Bld) 1.8 % Normal 0.9-7.0 [facility] Comment on above: Performed By: #### T SH, LIPID, T4, FT3, CMP #### [facility] [address] [place] [address] Dr. Alicia Patel Erythrocyte distribution width (RBC) [Ratio] 13.2 % Normal 11.0-15.0 [facility] Comment on above: Performed By: #### T SH, LIPID, T4, FT3, CMP #### [facility] [address] [place] [address] Dr. Alicia Patel Hematocrit (Bld) [Volume fraction] 36.0 % Critically low 42.0-54.0 [facility] Comment on above: Performed By: #### T SH, LIPID, T4, FT3, CMP #### [facility] [address] [place] [address] Dr. Alicia Patel Hemoglobin (Bld) [Mass/Vol] 12.0 g/dL Critically low 14.0-18.0 [facility] Comment on above: Performed By: #### T SH, LIPID, T4, FT3, CMP #### [facility] [address] [place] [address] Dr. Alicia Patel IG # 0.34 10e3/ul Critically high 0.00-0.03 [facility] Comment on above: Performed By: #### T SH, LIPID, T4, FT3, CMP #### [facility] [address] [place] [address] Dr. Alicia Patel IG % 3.8 % Critically high 0.0-0.5 [facility] Comment on above: Performed By: #### T SH, LIPID, T4, FT3, CMP #### [facility] [address] [place] [address] Dr. Alicia Patel LYMPH # 0.5 103/ul Critically low 1.2-3.8 [facility] Comment on above: Performed By: #### T SH, LIPID, T4, FT3, CMP #### [facility] [address] [place] [address] Dr. Alicia Patel Lymphocytes/100 WBC (Bld) 5.9 % Critically low 20.5-60.0 [facility] Comment on above: Performed By: #### T SH, LIPID, T4, FT3, CMP #### [facility] [address] [place] [address] Dr. Alicia Patel MANUAL DIFF REQ NO Normal [facility] Comment on above: Performed By: #### T SH, LIPID, T4, FT3, CMP #### [facility] [address] [place] [address] Dr. Alicia Patel MCH (RBC) [Entitic mass] 32.3 pg Normal 25.9-34.0 [facility] Comment on above: Performed By: #### T SH, LIPID, T4, FT3, CMP #### [facility] [address] [place] [address] Dr. Alicia Patel MCHC (RBC) [Mass/Vol] 33.3 g/dL Normal 29.9-35.2 [facility] Comment on above: Performed By: #### T SH, LIPID, T4, FT3, CMP #### [facility] [address] [place] [address] Dr. Alicia Patel MCV (RBC) [Entitic vol] 97.0 fL Critically high 80.0-94.0 [facility] Comment on above: Performed By: #### T SH, LIPID, T4, FT3, CMP #### [facility] [address] [place] [address] Dr. Alicia Patel MONO # 0.5 103/ul Normal 0.3-0.8 [facility] Comment on above: Performed By: #### T SH, LIPID, T4, FT3, CMP #### [facility] [address] [place] [address] Dr. Alicia Patel Monocytes/100 WBC (Bld) 5.5 % Normal 1.7-12.0 [facility] Comment on above: Performed By: #### T SH, LIPID, T4, FT3, CMP #### [facility] [address] [place] [address] Dr. Alicia Patel NEUT # 7.5 103/ul Critically high 1.4-6.5 [facility] Comment on above: Performed By: #### T SH, LIPID, T4, FT3, CMP #### [facility] [address] [place] [address] Dr. Alicia Patel Neutrophils/100 WBC (Bld) 82.7 % Critically high 43.0-75.0 [facility] Comment on above: Performed By: #### T SH, LIPID, T4, FT3, CMP #### [facility] [address] [place] [address] Dr. Alicia Patel Platelet mean volume (Bld) [Entitic vol] 10.2 fL Normal 9.5-13.5 [facility] Comment on above: Performed By: #### T SH, LIPID, T4, FT3, CMP #### [facility] [address] [place] [address] Dr. Alicia Patel PLT 191 103/ul Normal 150-450 [facility] Comment on above: Performed By: #### T SH, LIPID, T4, FT3, CMP #### [facility] [address], [place] [address] Dr. Alicia Patel RBC 3.71 106/ul Critically low 4.70-6.10 [facility] Comment on above: Performed By: #### T SH, LIPID, T4, FT3, CMP #### [facility] [address], [place] [address] Dr. Alicia Patel WBC 9.0 103/ul Normal 4.0-11.0 [facility] Comment on above: Performed By: #### T SH, LIPID, T4, FT3, CMP #### [facility] [address], [place] [address] ABD/PELVIS WO CONon [...] Date: 2022-08-11 08:38 Normal [facility] Covid-19 PCR (CVDTB)on 07-28 SARS-CoV-2 (COVID-19) RNA SAVANNAH+probe Ql (Unsp spec) Not detected Normal NOT DETECTED [facility] Comment on above: Result Comment: When [...] for this test is supported by the [place] of [employer] and Human Service's declaration that [...] LIPID, T4, FT3, CMP #### [facility] [address] [place] [address] Dr. Alicia Patel ER URINE PROFILEon 3 Bilirubin Ql (U) Negative Normal NEGATIVE [facility] Comment on above: Performed By: #### T SH, LIPID, T4, FT3, CMP #### [facility] [address] [place] [address] Dr. Alicia Patel Clarity (U) CLEAR Normal CLEAR [facility] Comment on above: Performed By: #### T SH, LIPID, T4, FT3, CMP #### [facility] [address] [place] [address] Dr. Alicia Patel Color (U) LT. YELLOW Normal YELLOW [facility] Comment on above: Performed By: #### T SH, LIPID, T4, FT3, CMP #### [facility] [address] [place] [address] Dr. Alicia Patel ERUAHD A micrscopic examina tion will be performed if indicated. Normal [facility] Comment on above: Performed By: #### T SH, LIPID, T4, FT3, CMP #### [facility] [address] [address] [address] Alicia Patel Glucose Ql (U) Negative Normal NEGATIVE [facility] Comment on above: Performed By: #### T SH, LIPID, T4, FT3, CMP #### [facility] [address] [address] [address] Alicia Patel Hemoglobin Ql (U) SMALL Abnormal NEGATIVE [facility] Comment on above: Performed By: #### T SH, LIPID, T4, FT3, CMP #### [facility] [address] [address] [address] Alicia Patel Ketones Ql (U) Negative Normal NEGATIVE [facility] Comment on above: Performed By: #### T SH, LIPID, T4, FT3, CMP #### [facility] [address] [place] [address] Dr. Alicia Patel LEUKOCYTES Negative Normal NEGATIVE [facility] Comment on above: Performed By: #### T SH, LIPID, T4, FT3, CMP #### [facility] [address] [address] [address] Alicia Patel Nitrite Ql (U) Negative Normal NEGATIVE [facility] [facility] Comment on above: Performed By: #### T SH, LIPID, T4, FT3, CMP #### [facility] [address] [place] [address] Dr. Alicia Patel pH (U) 6.0 [pH] Normal 5-9 [facility] Comment on above: Performed By: #### T SH, LIPID, T4, FT3, CMP #### [facility] [address] [address] [address] Alicia Patel Protein (U) [Mass/Vol] 100 mg/dL Abnormal NEGAT ОЛЕГ/ TRACE [facility] Comment on above: Performed By: #### T SH, LIPID, T4, FT3, CMP #### [facility] [address] [place] [address] Dr. Alicia Patel SPEC GRAVITY 1.015 Normal 1.005-<=1. 025 [facility] Comment on above: Performed By: #### T SH, LIPID, T4, FT3, CMP #### [facility] [address] [address] [address] Alicia Patel UR MICRO IND INDICATED Normal [facility] Comment on above: Performed By: #### T SH, LIPID, T4, FT3, CMP #### [facility] [address] [address] [address] Alicia Patel Urobilinogen Qn (U) 0.2 {Wil'U}/dL Normal 0.2 - 1. 0 [facility] Comment on above: Performed By: #### T SH, LIPID, T4, FT3, CMP #### [facility] [address] [address] [address] Alicia Patel Hepatitis B virus surface Ag [Presence] in Serum or Plasma by ImmunoassayOrdered By: Alicia Perea on 08-11-2022 HBV surface Ag IA Ql Negative Negative [facility] Hepatitis C virus IgG Ab [Pr esence] in Serum or Plasma by ImmunoassayOrdered By: Alicia Perea on 08-11-2022 HCV IgG IA Ql Non-Reactive Non Reactive [facility] Hepatitis C virus RNA [Units /volume] (viral load) in Serum or Plasma by SAVANNAH with probOrdered By: Alicia Perea on 08-11-2022 HCV RNA SAVANNAH+probe Qn N/A [facility] Hepatitis C virus RNA [log u nits/volume] (viral load) in Serum or Plasma by SAVANNAH withOrdered By: Alicia Perea on 08-11-2022 HCV RNA SAVANNAH+probe [Log units/Vol] N/A [facility] - CoagulationOrde red By: Hiral Interiano on 08-11-2022 PT Coag (PPP) [Time] 12.2 s 9.0-12.9 [facility] Lymphocytes/100 WBC Manual c nt (Bld)Ordered By: Hiral Interiano on 08-11-2022 Lymphocytes/100 WBC (Bld) 5 % 18-42 [facility] Microcytes LM Ql (Bld)Ordere d By: Hiral Interiano on 08-11-2022 Microcytes Ql (Bld) Slight [facility] Monocytes/100 WBC Manual cnt (Bld)Ordered By: Hiral Interiano on 08-11-2022 Monocytes/100 WBC (Bld) 1 % 2-11 [facility] No Panel InformationOrdered By: Alicia Perea on 08-11-2022 Hepatitis A IgM Antibody Negative Negative [facility] Hepatitis B Core IgM Antibody Negative Negative [facility] Hepatitis C Interpretation See comment . [facility] Comment on above: Not infected with HC V unless early or acute infection issuspected (which may be delayed in an immunocompromisedindividual), or other evidence exists to indicate HCVinfection.Performed at: [facility] [address] [id number] Director: Lee Bob PhD, Phone: [phone] Hepatitis C RNA Quantitative N/A [facility] POINT OF CARE GLUCOSEon 07-28 Glucose [Mass/Vol] 132 mg/dL Critically high 74-106 [facility] Comment on above: Performed By: #### T SH, LIPID, T4, FT3, CMP #### [facility] [address] [place] [address] Dr. Alicia Patel Glucose [Mass/Vol] 117 mg/dL Critically high 74-106 [facility] Comment on above: Performed By: #### T SH, LIPID, T4, FT3, CMP #### [facility] [address] [place] [address] Dr. Alicia Patel Glucose [Mass/Vol] 95 mg/dL Normal 74-106 [facility] Comment on above: Performed By: #### P OCGLUC #### [facility] [address] [place] [address] Dr. Alicia Patel PROF CHEM 8 (BAS METB)on Anion gap [Moles/Vol] 29.5 mmol/L Normal [facility] Comment on above: Performed By: #### T SH, LIPID, T4, FT3, CMP #### [facility] [address] [place] [address] Dr. Alicia Patel Calcium [Mass/Vol] 7.7 mg/dL Critically low 8.5-10.1 [facility] Comment on above: Performed By: #### T SH, LIPID, T4, FT3, CMP #### [facility] [address] [place] [address] Dr. Alicia Patel Chloride [Moles/Vol] 102 mmol/L Normal 98-107 [facility] Comment on above: Performed By: #### T SH, LIPID, T4, FT3, CMP #### [facility] [address] [place] [address] Dr. Alicia Patel CO2 [Moles/Vol] 13.5 mmol/L Critically low 21.0-32.0 [facility] Comment on above: Performed By: #### T SH, LIPID, T4, FT3, CMP #### [facility] [address] [place] [address] Dr. Alicia Patel Creatinine [Mass/Vol] 17.89 mg/dL Critically high 0.70-1.3 0 [facility] Comment on above: Performed By: #### T SH, LIPID, T4, FT3, CMP #### [facility] [address] [place] [address] Dr. Alicia Patel EGFR-AF SAMMARINESE 3 mL/min/1.73m2 Critically low >=60 [facility] Comment on above: Performed By: #### T SH, LIPID, T4, FT3, CMP #### [facility] [address] [place] [address] Dr. Alicia Patel EGFR-NON AF SAMMARINESE 3 mL/min/1.73m2 Critically low >=60 [facility] Comment on above: Performed By: #### T SH, LIPID, T4, FT3, CMP #### [facility] [address] [place] [address] Dr. Alicia Patel Glucose [Mass/Vol] 105 mg/dL Normal 74-106 [facility] Comment on above: Performed By: #### T SH, LIPID, T4, FT3, CMP #### [facility] [address] [place] [address] Dr. Alicia Patel Potassium [Moles/Vol] 7.0 mmol/L Critically high 3.5-5.1 [facility] Comment on above: Performed By: #### T SH, LIPID, T4, FT3, CMP #### [facility] [address], [place] [address] Dr. Alicia Patel Sodium [Moles/Vol] 138 mmol/L Normal 136-145 [facility] Comment on above: Performed By: #### T SH, LIPID, T4, FT3, CMP #### [facility] [address] [address] [address] Alicia Patel Urea nitrogen [Mass/Vol] 156.0 mg/dL Critically high 7.0-18.0 [facility] Comment on above: Performed By: #### T SH, LIPID, T4, FT3, CMP #### [facility] [address] [address] [address] Alicia Patel Urea nitrogen/Creatinine [Mass ratio] 8.7 mg/mg Normal [facility] Comment on above: Performed By: #### T SH, LIPID, T4, FT3, CMP #### [facility] [address] [address] [address] Alicia Patel Platelet adequacy [Presence] in Blood by Light microscopyOrdered By: Hiral Interiano on 08-11-2022 Platelets LM Ql (Bld) Normal Normal [facility] Platelet morphology finding [Identifier] in BloodOrdered By: Hiral Interiano on 08-11-2022 Platelet morphology finding Nom (Bld) Normal Normal [facility] Platelet poor plasma interna tional normalized ratio (INR) by coagulation assay (relatOrdered By: Hiral Interiano on 08-11-2022 INR Coag (PPP) [Relative time] 1.0 {INR} [facility] Comment on above: INR Therapeutic Rang [...] on 08-11-2022 Poikilocytosis LM Ql (Bld) Slight [facility] RBC morphologyOrdered By: Donal Interiano on 08-11-2022 RBC morphology finding Nom (Bld) N/A [facility] Segmented neutrophils/100 WB C Manual cnt (Bld)Ordered By: Hiral Interiano on 08-11-2022 Segmented neutrophils/100 WBC (Bld) 94 % 50-70 [facility] Troponin I.cardiac [Mass/vol ume] in Serum or Plasma by High sensitivity methodOrdered By: Hiral Interiano on 08-11-2022 Troponin I.cardiac High sensitivity method [Mass/Vol] 42 pg/mL 0-20 [facility] URINE MICROSCOPIC ONLYon BACTERIA TRACE Abnormal NONE SEEN [facility] Comment on above: Performed By: #### T SH, LIPID, T4, FT3, CMP #### [facility] [address] [address] [address] Alicia Patel Bacteria identified Cx Nom (U) NOT INDICATED Normal [facility] Comment on above: Performed By: #### T SH, LIPID, T4, FT3, CMP #### [facility] [address] [address] [address] Alicia Patel CAST NONE SEEN Normal NONE SEEN [facility] Comment on above: Performed By: #### T SH, LIPID, T4, FT3, CMP #### [facility] [address] [address] [address] Alicia Patel Crystals LM Nom (Urine sed) NONE SEEN Normal NONE SEEN [facility] Comment on above: Performed By: #### T SH, LIPID, T4, FT3, CMP #### [facility] [address] [address] [address] Alicia Patel Epithelial cells LM Ql (Urine sed) RARE Normal NONE SEEN /RARE [facility] Comment on above: Performed By: #### T SH, LIPID, T4, FT3, CMP #### [facility] [address] [address] [address] Alicia Patel MUCOUS NONE SEEN Normal NONE SEEN [facility] Comment on above: Performed By: #### T SH, LIPID, T4, FT3, CMP #### [facility] [address], [place] [address] Dr. Alicia Patel RBC 2-5 Abnormal 0-2 [facility] Comment on above: Performed By: #### T SH, LIPID, T4, FT3, CMP #### [facility] [address], [place] [address] Dr. Alicia Patel WBC 2-5 Abnormal NONE SEEN [facility] Comment on above: Performed By: #### T SH, LIPID, T4, FT3, CMP #### [facility] [address], [place] [address] Dr. Alicia Patel XR CHEST 1 Von [...] YOGESH BYERS Date: 2022-08-11 04:27 Normal [facility] Covid-19 PCR (CVDTBH)on SARS-CoV-2 (COVID-19) RNA SAVANNAH+probe Ql (Unsp spec) Not detected Normal NOT DETECTED [facility] Comment on above: Result Comment: This test is not yet approved or cleared by the [place] FDA. When there are no FDA-approved or cleared tests available, and other criteria are met, FDA can make tests available under an emergency access mechanism called an Emergency Use Authorization (EUA). The EUA for this test is supported by the [place] of Health and Human Service's (HHS's) declaration [...] LIPID, T4, FT3, CMP #### [facility] [address] [place] [address] Dr. Alicia Patel INFLUENZA A AND B AGon 08-02 INFLUANE SEE BELOW Normal [facility] Comment on above: Result Comment: Nega tive for Flu A protein angiten. Infection due to Flu A cannot be ruled out. Flu A angiten in the sample may be below the detection limit of the test. Performed By: #### T SH, LIPID, T4, FT3, CMP #### [facility] [address] [place] [address] Dr. Alicia Patel INFLUBNEGH SEE BELOW Normal [facility] Comment on above: Result Comment: Nega tive for Flu B protein antigen. Infection due to Flu B cannot be ruled out. Flu B antigen in the sample may be below the detection limit of the test. Performed By: #### T SH, LIPID, T4, FT3, CMP #### [facility] [address] [place] [address] Dr. Alicia Patel INFLUENZA A AG Negative Normal NEGATIVE SEE COMMENT [facility] Comment on above: Performed By: #### T SH, LIPID, T4, FT3, CMP #### [facility] [address] [place] [address] Dr. Alicia Patel INFLUENZA B AG Negative Normal NEGATIVE SEE COMMENT [facility] Comment on above: Performed By: #### T SH, LIPID, T4, FT3, CMP #### [facility] [address] [place] [address] Dr. Alicia Patel PTH INTACTon 05-25-2022 PTH, Intact 47 pg/mL Normal 15-65 [facility] Comment on above: Performed By: #### T SH, LIPID, T4, FT3, CMP #### [facility] [address] [place] [address] Dr. Alicia Patel ALBUMINon 05-24-2022 Albumin [Mass/Vol] 3.9 g/dL Normal 3.4-5.0 [facility] Comment on above: Performed By: #### T SH, LIPID, T4, FT3, CMP #### [facility] [address] [place] [address] Dr. Alicia Patel HEMOGRAM AND PLATELon 2021 Hematocrit (Bld) [Volume fraction] 42.1 % Normal 42.0-54.0 [facility] Comment on above: Performed By: #### T SH, LIPID, T4, FT3, CMP #### [facility] [address] [place] [address] Dr. Alicia Patel Hemoglobin (Bld) [Mass/Vol] 14.7 g/dL Normal 14.0-18.0 [facility] Comment on above: Performed By: #### T SH, LIPID, T4, FT3, CMP #### [facility] [address] [place] [address] Dr. Alicia Patel MCH (RBC) [Entitic mass] 33.2 pg Normal 25.9-34.0 [facility] Comment on above: Performed By: #### T SH, LIPID, T4, FT3, CMP #### [facility] [address] [place] [address] Dr. Alicia Patel MCHC (RBC) [Mass/Vol] 34.9 g/dL Normal 29.9-35.2 [facility] Comment on above: Performed By: #### T SH, LIPID, T4, FT3, CMP #### [facility] [address] [place] [address] Dr. Alicia Patel MCV (RBC) [Entitic vol] 95.0 fL Critically high 80.0-94.0 [facility] Comment on above: Performed By: #### T SH, LIPID, T4, FT3, CMP #### [facility] [address] [place] [address] Dr. Alicia Patel PLT 190 103/ul Normal 150-450 [facility] Comment on above: Performed By: #### T SH, LIPID, T4, FT3, CMP #### [facility] [address] [place] [address] Dr. Alicia Patel RBC 4.43 106/ul Critically low 4.70-6.10 [facility] Comment on above: Performed By: #### T SH, LIPID, T4, FT3, CMP #### [facility] [address] [place] [address] Dr. Alicia Patel WBC 7.0 103/ul Normal 4.0-11.0 [facility] Comment on above: Performed By: #### T SH, LIPID, T4, FT3, CMP #### [facility] [address] [place] [address] Dr. Alicia Patel MAGNESIUMon 05-24-2022 Magnesium [Mass/Vol] 1.7 mg/dL Critically low 1.8-2.4 [facility] Comment on above: Performed By: #### T SH, LIPID, T4, FT3, CMP #### [facility] [address] [place] [address] Dr. Alicia Patel PHOSPHORUSon 05-24-2022 Phosphate [Mass/Vol] 3.7 mg/dL Normal 2.6-4.7 [facility] Comment on above: Performed By: #### T SH, LIPID, T4, FT3, CMP #### [facility] [address] [place] [address] Dr. Alicia Patel PROF CHEM 8 (BAS METB)on Anion gap [Moles/Vol] 11.2 mmol/L Normal [facility] Comment on above: Performed By: #### U RTPCR #### [facility] [address] [place] [address] Dr. Alicia Patel Calcium [Mass/Vol] 9.1 mg/dL Normal 8.5-10.1 [facility] Comment on above: Performed By: #### U RTPCR #### [facility] [address] [place] [address] Dr. Alicia Patel Chloride [Moles/Vol] 104 mmol/L Normal 98-107 [facility] Comment on above: Performed By: #### U RTPCR #### [facility] [address] [address] [address] Alicia Patel CO2 [Moles/Vol] 29.2 mmol/L Normal 21.0-32.0 [facility] Comment on above: Performed By: #### U RTPCR #### [facility] [address] [address] [address] Alicia Patel Creatinine [Mass/Vol] 1.40 mg/dL Critically high 0.70-1.30 [facility] Comment on above: Performed By: #### U RTPCR #### [facility] [address] [address] [address] Alicia Patel EGFR-AF SAMMARINESE 59 mL/min/1.73m2 Critically low >=60 [facility] Comment on above: Performed By: #### U RTPCR #### [facility] [address] [address] [address] Alicia Patel EGFR-NON AF SAMMARINESE 49 mL/min/1.73m2 Critically low >=60 [facility] Comment on above: Performed By: #### U RTPCR #### [facility] [address] [address] [address] Alicia Patel Glucose [Mass/Vol] 148 mg/dL Critically high 74-106 [facility] Comment on above: Performed By: #### U RTPCR #### [facility] [address] [address] [address] Alicai Patel Potassium [Moles/Vol] 4.4 mmol/L Normal 3.5-5.1 [facility] Comment on above: Performed By: #### U RTPCR #### [facility] [address] [address] [address] Alicia Patel Sodium [Moles/Vol] 140 mmol/L Normal 136-145 [facility] Comment on above: Performed By: #### U RTPCR #### [facility] [address] [address] [address] Alicia Patel Urea nitrogen [Mass/Vol] 16.0 mg/dL Normal 7.0-18.0 [facility] Comment on above: Performed By: #### U RTPCR #### [facility] [address] [address] [address] Alicia Patel Urea nitrogen/Creatinine [Mass ratio] 11.4 mg/mg Normal [facility] Comment on above: Performed By: #### U RTPCR #### [facility] [address] [place] [address] Dr. Alicia Patel UA RANDOM W/MICROSCOPICon BACTERIA NONE SEEN Normal NONE SEEN [facility] Comment on above: Performed By: #### T SH, LIPID, T4, FT3, CMP #### [facility] [address] [place] [address] Dr. Alicia Patel Bilirubin Ql (U) Negative Normal NEGATIVE [facility] Comment on above: Performed By: #### T SH, LIPID, T4, FT3, CMP #### [facility] [address] [place] [address] Dr. Alicia Patel CAST NONE SEEN Normal NONE SEEN [facility] Comment on above: Performed By: #### T SH, LIPID, T4, FT3, CMP #### [facility] [address] [place] [address] Dr. Alicia Patel Clarity (U) CLEAR Normal CLEAR [facility] Comment on above: Performed By: #### T SH, LIPID, T4, FT3, CMP #### [facility] [address] [place] [address] Dr. Alicia Patel Color (U) LT. YELLOW Normal YELLOW [facility] Comment on above: Performed By: #### T SH, LIPID, T4, FT3, CMP #### [facility] [address] [place] [address] Dr. Alicia Patel Crystals LM Nom (Urine sed) NONE SEEN Normal NONE SEEN [facility] Comment on above: Performed By: #### T SH, LIPID, T4, FT3, CMP #### [facility] [address] [place] [address] Dr. Alicia Patel Epithelial cells LM Ql (Urine sed) FEW Abnormal NONE SEEN /RARE [facility] Comment on above: Performed By: #### T SH, LIPID, T4, FT3, CMP #### [facility] [address] [place] [address] Dr. Alicia Patel Glucose Ql (U) Negative Normal NEGATIVE [facility] Comment on above: Performed By: #### T SH, LIPID, T4, FT3, CMP #### [facility] [address] [place] [address] Dr. Alicia Patel Hemoglobin Ql (U) Negative Normal NEGATIVE [facility] Comment on above: Performed By: #### T SH, LIPID, T4, FT3, CMP #### [facility] [address] [place] [address] Dr. Alicia Patel Ketones Ql (U) Negative Normal NEGATIVE [facility] Comment on above: Performed By: #### T SH, LIPID, T4, FT3, CMP #### [facility] [address] [place] [address] Dr. Alicia Patel LEUKOCYTES Negative Normal NEGATIVE [facility] Comment on above: Performed By: #### T SH, LIPID, T4, FT3, CMP #### [facility] [address] [place] [address] Dr. Alicia Patel MUCOUS NONE SEEN Normal NONE SEEN [facility] Comment on above: Performed By: #### T SH, LIPID, T4, FT3, CMP #### [facility] [address] [place] [address] Dr. Alicia Patel Nitrite Ql (U) Negative Normal NEGATIVE [facility] Comment on above: Performed By: #### T SH, LIPID, T4, FT3, CMP #### [facility] [address] [place] [address] Dr. Alicia Patel pH (U) 5.5 [pH] Normal 5-9 [facility] Comment on above: Performed By: #### T SH, LIPID, T4, FT3, CMP #### [facility] [address] [place] [address] Dr. Alicia Patel RBC NONE SEEN Abnormal 0-2 [facility] Comment on above: Performed By: #### T SH, LIPID, T4, FT3, CMP #### [facility] [address] [place] [address] Dr. Alicia Patel SPEC GRAVITY 1.020 Normal 1.005-<=1. 025 [facility] Comment on above: Performed By: #### T SH, LIPID, T4, FT3, CMP #### [facility] [address] [place] [address] Dr. Alicia Patel UA PROTEIN Negative Normal NEGATIVE/ TRACE [facility] Comment on above: Performed By: #### T SH, LIPID, T4, FT3, CMP #### [facility] [address] [place] [address] Dr. Alicia Patel Urobilinogen Qn (U) 0.2 {Wil'U}/dL Normal 0.2 - 1. 0 [facility] Comment on above: Performed By: #### T SH, LIPID, T4, FT3, CMP #### [facility] [address] [place] [address] Dr. Alicia Patel WBC NONE SEEN Normal NONE SEEN [facility] Comment on above: Performed By: #### T SH, LIPID, T4, FT3, CMP #### [facility] [address] [place] [address] Dr. Alicia Patel URIC ACID SERUMon 05-24-2022 Urate [Mass/Vol] 5.6 mg/dL Normal 3.5-7.2 [facility] Comment on above: Performed By: #### T SH, LIPID, T4, FT3, CMP #### [facility] [address] [place] [address] Dr. Alicia Patel URINE T PROTEIN CREAT RATIOo n 05-24-2022 Protein (U) [Mass/Vol] 26.0 mg/dL Critically high <=12.0 [facility] Comment on above: Performed By: #### T SH, LIPID, T4, FT3, CMP #### [facility] [address] [place] [address] Dr. Alicia Patel UR PROT CREAT RAT 0.34 Normal [facility] Comment on above: Performed By: #### T SH, LIPID, T4, FT3, CMP #### [facility] [address] [address] [address] Alicia Patel URINE CREAT 77.39 mg/dL Normal 20.00-300. 00 [facility] Comment on above: Performed By: #### T SH, LIPID, T4, FT3, CMP #### [facility] [address] [address] [address] Alicia Patel Vital Signs Date Time Vital Sign Value Performing Clinician Facility 12-20-2023 11:49-0400 Body height 175.26 cm MD Tray Alfaro Work Phone: [facility] 12-20-2023 11:49-0400 Body mass index (BMI) [Ratio] 39.4 kg/m2 MD Tray Alfaro Work Phone: [facility] 12-20-2023 11:49-0400 Body temperature 96.5 [degF] MD Tray Alfaro Work Phone: [facility] 12-20-2023 11:49-0400 Body weight 121.33 kg MD Tray Alfaro Work Phone: [facility] 12-20-2023 11:49-0400 Diastolic blood pressure 74 mm[Hg] MD Tray Alfaro Work Phone: [facility] 12-20-2023 11:49-0400 Heart rate 83 /min MD Tray Alfaro Work Phone: [facility] 12-20-2023 11:49-0400 Respiratory rate 20 /min MD Tray Alfaro Work Phone: [facility] 12-20-2023 11:49-0400 SaO2% (BldA) [Mass fraction] 94 % MD Tray Alfaro Work Phone: [facility] 12-20-2023 11:49-0400 Systolic blood pressure 135 mm[Hg] MD Tray Alfaro Work Phone: [facility] 06-14-2023 11:00-0500 Body height 175.26 cm Alicia Perea Other [facility] Other 06-14-2023 11:00-0500 Body mass index (BMI) [Ratio] 38.51 kg/m2 Alicia Brit Other [facility] Other 06-14-2023 11:00-0500 Body temperature 97.2 [degF] Alicia Brit Other [facility] Other 06-14-2023 11:00-0500 Body weight 118.3 kg Alicia Brit Other [facility] Other 06-14-2023 11:00-0500 Diastolic blood pressure 72 mm[Hg] Alicia Brit Other [facility] Other 06-14-2023 11:00-0500 Respiratory rate 18 /min Alicia Brit Other [facility] Other 06-14-2023 11:00-0500 SaO2% (BldA) [Mass fraction] 95 % Alicia Brit Other [facility] Other 06-14-2023 11:00-0500 Systolic blood pressure 122 mm[Hg] Alicia Brit Other [facility] Other 11-29-2022 10:20-0400 Body height 175.26 cm Alicia Brit Other [facility] Other 11-29-2022 10:20-0400 Body mass index (BMI) [Ratio] 36.77 kg/m2 Laicia Brit Other [facility] Other 11-29-2022 10:20-0400 Body temperature 96.3 [degF] Alicia Brit Other [facility] Other 11-29-2022 10:20-0400 Body weight 112.95 kg Alicia Brit Other [facility] Other 11-29-2022 10:20-0400 Diastolic blood pressure 72 mm[Hg] Alicia Brit Other [facility] Other 11-29-2022 10:20-0400 Respiratory rate 18 /min Alicia Brit Other [facility] Other 11-29-2022 10:20-0400 SaO2% (BldA) [Mass fraction] 96 % Alicia Brit Other [facility] Other 11-29-2022 10:20-0400 Systolic blood pressure 137 mm[Hg] Alicia Brit Other [facility] Other 10-07-2022 17:25-0400 Heart rate 66 /min Ni DS [facility] 10-07-2022 17:25-0400 SaO2% (BldA) [Mass fraction] 92 % Ni DS [facility] 10-07-2022 17:25-0400 Respiratory rate 16 /min Ni DS [facility] 10-07-2022 17:24-0400 Body temperature 97.7 [degF] Ni DS [facility] 10-07-2022 17:24-0400 Diastolic blood pressure 74 mm[Hg] Ni DS [facility] 10-07-2022 17:24-0400 Mean blood pressure 106 mm[Hg] [facility] 10-07-2022 17:24-0400 Systolic blood pressure 170 mm[Hg] Ni COOK [facility] 10-07-2022 16:18-0400 Heart rate 61 /min [facility] 10-07-2022 16:18-0400 SaO2% (BldA) [Mass fraction] 95 % Ni COOK [facility] 10-07-2022 16:17-0400 Diastolic blood pressure 81 mm[Hg] Ni [facility] 10-07-2022 16:17-0400 Mean blood pressure 103 mm[Hg] [facility] 10-07-2022 16:17-0400 Systolic blood pressure 148 mm[Hg] [facility] 10-07-2022 16:17-0400 Respiratory rate 16 /min [facility] 10-07-2022 16:11-0400 Diastolic blood pressure 75 mm[Hg] [facility] 10-07-2022 16:11-0400 Heart rate 58 /min [facility] 10-07-2022 16:11-0400 Mean blood pressure 98 mm[Hg] [facility] 10-07-2022 16:11-0400 Respiratory rate 17 /min [facility] 10-07-2022 16:11-0400 SaO2% (BldA) [Mass fraction] 97 % [facility] 10-07-2022 16:11-0400 Systolic blood pressure 144 mm[Hg] [facility] 10-07-2022 16:00-0400 Mean blood pressure 92 mm[Hg] [facility] 10-07-2022 16:00-0400 Respiratory rate 13 /min [facility] 10-07-2022 15:55-0400 Mean blood pressure 86 mm[Hg] [facility] 10-07-2022 15:55-0400 Respiratory rate 17 /min [facility] 10-07-2022 15:46-0400 Body temperature 98.06 [degF] [facility] 10-07-2022 15:40-0400 Respiratory rate 15 /min Ni OLIVARES [facility] 10-07-2022 10:14-0400 Mean blood pressure 97 mm[Hg] Ni OLIVARES [facility] 10-07-2022 10:14-0400 Blood Pressure Location Ni OLIVARES [facility] 10-07-2022 10:13-0400 Heart rate 64 /min Ni OLIVARES [facility] 10-07-2022 10:12-0400 Body temperature 98.06 [degF] Ni OLIVARES [facility] 10-07-2022 10:12-0400 Blood Pressure Location [facility] 09-15-2022 14:40-0400 Body height 175.26 cm Alicia Brit Other [facility] Other 09-15-2022 14:40-0400 Body mass index (BMI) [Ratio] 37.48 kg/m2 Alicia Brit Other [facility] Other 09-15-2022 14:40-0400 Body weight 115.12 kg Alicia Brit Other [facility] Other 09-15-2022 14:40-0400 Diastolic blood pressure 73 mm[Hg] Alicia Brit Other [facility] Other 09-15-2022 14:40-0400 Respiratory rate 18 /min Alicia Brit Other [facility] Other 09-15-2022 14:40-0400 SaO2% (BldA) [Mass fraction] 97 % Alicia Brit Other [facility] Other 09-15-2022 14:40-0400 Systolic blood pressure 138 mm[Hg] Alicia Brit Other [facility] Other 09-06-2022 10:01-0400 Blood Pressure Location Ni OLIVARES [facility] 09-06-2022 10:01-0400 Diastolic blood pressure 70 mm[Hg] Ni MARSHALL [facility] 09-06-2022 10:01-0400 Heart rate 68 /min Ni OLIVARES [facility] 09-06-2022 10:01-0400 Systolic blood pressure 132 mm[Hg] Ni OLIVARES [facility] 08-15-2022 12:16-0500 Body temperature 97.8 [degF] MD Tray Alfaro Work Phone: [facility] 08-15-2022 12:16-0500 Diastolic blood pressure 92 mm[Hg] MD Tray Alfaro Work Phone: [facility] 08-15-2022 12:16-0500 Heart rate 68 /min MD Tray Alfaro Work Phone: [facility] 08-15-2022 12:16-0500 Respiratory rate 18 /min MD Tray Alfaro Work Phone: [facility] 08-15-2022 12:16-0500 SaO2% (BldA) [Mass fraction] 95 % MD Tray Alfaro Work Phone: [facility] 08-15-2022 12:16-0500 Systolic blood pressure 146 mm[Hg] MD Tray Alfaro Work Phone: [facility] 08-15-2022 05:08-0500 Body weight 118.2 kg MD Tray Alfaro Work Phone: [facility] 08-13-2022 13:10-0500 Inhaled oxygen flow rate 8 L/min MD Tray Alfaro Work Phone: [facility] 08-13-2022 11:54-0500 Body height 177.8 cm MD Tray Alfaro Work Phone: [facility] 08-13-2022 11:54-0500 Body mass index (BMI) [Ratio] 37.3 kg/m2 MD Tray Alfaro Work Phone: [facility] 06-01-2022 11:40-0500 Body height 175.26 cm Alicia Brit Other [facility] Other 06-01-2022 11:40-0500 Body mass index (BMI) [Ratio] 37.77 kg/m2 Alicia Brit Other [facility] Other 06-01-2022 11:40-0500 Body temperature 97.5 [degF] Alicia Brit Other [facility] Other 06-01-2022 11:40-0500 Body weight 116.03 kg Alicia Brit Other [facility] Other 06-01-2022 11:40-0500 Diastolic blood pressure 71 mm[Hg] Alicia Brit Other [facility] Other 06-01-2022 11:40-0500 Respiratory rate 18 /min Alicia Brit Other [facility] Other 06-01-2022 11:40-0500 SaO2% (BldA) [Mass fraction] 93 % Alicia Brit Other [facility] Other 06-01-2022 11:40-0500 Systolic blood pressure 134 mm[Hg] Alicia Brit Other [facility] Other 11-24-2021 11:20-0400 Body height 175.26 cm Alicia Brit Other [facility] Other 11-24-2021 11:20-0400 Body mass index (BMI) [Ratio] 36.26 kg/m2 Alicia Brit Other [facility] Other 11-24-2021 11:20-0400 Body temperature 96.4 [degF] Alicia Brit Other [facility] Other 11-24-2021 11:20-0400 Body weight 111.4 kg Alicia Brit Other [facility] Other 11-24-2021 11:20-0400 Diastolic blood pressure 72 mm[Hg] Alicia Brit Other [facility] Other 11-24-2021 11:20-0400 Respiratory rate 18 /min Alicia Brit Other [facility] Other 11-24-2021 11:20-0400 SaO2% (BldA) [Mass fraction] 95 % Alicia Brit Other [facility] Other 11-24-2021 11:20-0400 Systolic blood pressure 139 mm[Hg] Alicia Brit Other [facility] Other 10-26-2021 09:17-0400 Blood Pressure Location [facility] 10-26-2021 09:17-0400 Diastolic blood pressure 69 mm[Hg] Milton BRAUN [facility] 10-26-2021 09:17-0400 Heart rate 64 /min Milton BRAUN [facility] 10-26-2021 09:17-0400 Respiratory rate 16 /min Milton BRAUN [facility] 10-26-2021 09:17-0400 Systolic blood pressure 139 mm[Hg] Milton BRAUN [facility] 05-26-2021 11:00-0500 Body height 175.26 cm Alicia Brit Other [facility] Other 05-26-2021 11:00-0500 Body mass index (BMI) [Ratio] 34.4 kg/m2 Alicia Brit Other [facility] Other 05-26-2021 11:00-0500 Body temperature 96.9 [degF] Alicia Brit Other [facility] Other 05-26-2021 11:00-0500 Body weight 105.69 kg Alicia Brit Other [facility] Other 05-26-2021 11:00-0500 Diastolic blood pressure 80 mm[Hg] Alicia Brit Other [facility] Other 05-26-2021 11:00-0500 Respiratory rate 18 /min Alicia Brit Other [facility] Other 05-26-2021 11:00-0500 SaO2% (BldA) [Mass fraction] 94 % Alicia Brit Other [facility] Other 05-26-2021 11:00-0500 Systolic blood pressure 136 mm[Hg] Alicia Brit Other [facility] Other Encounters Encounter Date Encounter Type Care Provider Facility Start: 06-12-2024 ambulatory Ni OLIVARES [facility] Start: 05-21-2024 End: 05-21-2024 ambulatory [facility] Start: 12-20-2023 End: 12-20-2023 ambulatory MD Tray Alfaro Work Phone: [facility] Work Phone: Start: 12-20-2023 End: 12-20-2023 Patient encounter procedure MD Tray Alfaro Work Phone[facility] Work Phone: Start: 12-14-2023 Non-patient / Non-visit MD Annalisa Alfaro Work Phone: [facility] Work Phone: Start: 11-01-2023 End: 11-01-2023 ambulatory [facility] Start: 10-26-2023 End: 10-26-2023 ambulatory JENNIFER DRISCOLL Not Available Start: 10-18-2023 End: 10-18-2023 ambulatory MD Tray Alfaro Work Phone: [facility] Work Phone: Start: 10-18-2023 End: 10-18-2023 Departed Referred MD Tray Alfaro Work Phone: [facility] Start: 09-12-2023 End: 09-12-2023 ambulatory JENNIFER DRISCOLL Not Available Start: 08-23-2023 End: 08-23-2023 ambulatory [facility] Start: 07-02-2023 End: 07-02-2023 Patient encounter procedure MD Tray Alfaro Work Phone: [facility] [place] Work Phone: Start: 07-02-2023 End: 07-02-2023 ambulatory MD Tray Alfaro Work Phone: [facility] Work Phone: Start: 06-28-2023 End: 06-28-2023 Patient encounter procedure MD Tray Alfaro Work Phone: [facility] [place] Work Phone: Start: 06-28-2023 End: 06-28-2023 ambulatory MD Tray Alfaro Work Phone: [facility] Work Phone: Start: 06-16-2023 End: 06-16-2023 Patient encounter procedure MD Tray Alfaro Work Phone: [facility]ound [facility] [place] Work Phone: Start: 06-16-2023 End: 06-16-2023 ambulatory MD Tray Alfaro Work Phone: [facility] Work Phone: Start: 06-14-2023 Office outpatient vi sit 25 minutes Alicia Brit [facility] Start: 06-14-2023 End: 06-15-2023 ambulatory Ni OLIVARES [facility] Other Start: 06-14-2023 End: 06-14-2023 Patient encounter procedure Ni OLIVARES [facility] Start: 12-20-2022 End: 12-21-2022 ambulatory Ni OLIVARES [place] [place]: 12-20-2022 End: 12-20-2022 Patient encounter procedure Ni OLIVARES [facility] Start: 12-02-2022 End: 12-02-2022 ambulatory Ni OLIVARES [place] [place] Start: 11-29-2022 End: 11-29-2022 ambulatory Alicia Brit Other [facility] Other Start: 11-29-2022 Office outpatient vi sit 25 minutes Alicia Brit [facility] Start: 11-18-2022 End: 11-19-2022 ambulatory MD ALICIA PEREA Facility[place] [place] Start: 11-18-2022 End: 11-19-2022 ambulatory Ni OLIVARES Facility[place] [place] Start: 11-10-2022 End: 11-24-[address] TRAY ALFARO . Facility:[facility] Start: 11-08-2022 End: 11-08-[address] TRAY ALFARO . Facility:[facility] Start: 11-06-2022 End: 11-07-[address] TRAY ALFARO . Facility: Start: 10-29-2022 End: 10-30-2022 ambulatory Milton BRAUN Facility:[facility] Start: 10-29-2022 End: 10-29-2022 Patient encounter procedure Milton BRAUN [facility] Start: 10-26-2022 End: 10-27-2022 ambulatory IRIS CORONEL Facility:[facility] Start: 10-22-2022 End: 10-23-[address] MILTON BRAUN . Facility:[facility] Start: 10-15-2022 End: 10-16-[address] TRAY ALFARO . Facility:[facility] Start: 10-14-2022 End: 10-15-2022 ambulatory IRIS CORONEL Facility: Start: 10-07-2022 End: 10-07-2022 ambulatory Ni OLIVARES [place] [place] Start: 10-07-2022 End: 10-07-2022 Admission to same day surgery center Ni OLIVARES [facility] Start: 09-15-2022 End: 09-15-2022 ambulatory Alicia Brit Other [facility] [employer] Other Start: 09-15-2022 Office outpatient vi sit 25 minutes Alicia Brit [facility] Start: 09-14-2022 End: 09-15-2022 ambulatory Ni OLIVARES Facility:[id number] Start: 09-13-2022 End: 09-14-2022 ambulatory ALICIA BRIT Facility:[facility] Start: 09-06-2022 End: 09-07-2022 ambulatory Ni OLIVARES Facility:[facility] [place] Start: 09-06-2022 End: 09-06-2022 Patient encounter procedure Ni OLIVARES [facility] Start: 09-01-2022 End: 09-02-[address] [...] Patient encounter status MD Iglesias Work Phone: [facility] Start: 08-11-2022 End: 08-15-2022 Encounter for preprocedural cardiovascular examination MD Tray Alfaro Work Phone: [facility] Start: 08-11-2022 End: 08-15-2022 Evaluation and management of inpatient MD Tray Alfaro Work Phone: [facility] Work Phone: Start: 08-11-2022 End: 08-14-2022 ambulatory THADDEUS DAUGHERTY Facility:[facility] Start: 08-02-2022 End: 08-02-[address] TRAY ALFARO . Facility:[facility] Start: 07-08-2022 End: 07-23-[address] TRAY ALFARO . Facility:[facility] Start: 06-01-2022 End: 06-01-2022 ambulatory Alicia Brit Other [place] [employer] Other Start: 06-01-2022 Office outpatient vi sit 25 minutes Alicia Brit [facility] Start: 05-24-2022 End: 11-29-2022 ambulatory ALICIA BRIT Facility:[facility] Start: 02-03-2022 End: 02-04-[address] TRAY ALFARO . Facility:[facility] Start: 11-24-2021 End: 11-24-2021 ambulatory Alicia Brit Other [facility] Other Start: 11-24-2021 Office outpatient vi sit 25 minutes Alicia Brit [facility] Start: 10-26-2021 End: 10-26-2021 Patient encounter procedure Milton BRAUN [facility] Start: 05-26-2021 End: 05-26-2021 ambulatory Alicia Brit Other [facility] Other Start: 05-26-2021 Office outpatient vi sit [...] LIPID, T4, FT3, CMP #### [facility] [address] [place] [address] Dr. Alicia Patel Start: 10-07-2022 Extracorporeal shock wave lithotripsy of calculus of kidney Ni OLIVARES Start: 08-21-2022 PSA screening ALICIA QAD IR Comment on above: Performed By: #### P SAD #### [facility] [address] [place] [address] Dr. Alicia Patel Start: 08-13-2022 Cystoscopy MD Tray Alfaro Work Phone: Start: 08-11-2022 Plain chest X-ray MD Iglesias Work Phone: Start: 08-01-2019 Transurethral prostatectomy Milton BRAUN Start: 07-04-2019 Biopsy of prostate Rohan BRAUN Start: 06-27-2019 cystoscopy, bilatera l, ureteroscopy, laser lithotripsy Milton BRAUN ear surgery Milton BRAUN ear surgery Ni OLIVARES Plan of Treatment Date Care Activity Detail Author Start: 08-15-2022 [facility] Start: 08-14-2022 Microbial culture of sputum [facility] Start: 08-14-2022 Aerobic Culture Aerobic Culture [facility] Start: 08-14-2022 Investigation of tra nsfusion reaction Gram Stain [facility] Start: 08-11-2022 Hospital admission [facility] Start: 08-11-2022 Referral to food expeditor [facility] Start: 08-11-2022 Referral to trust administrator [facility] Start: 08-11-2022 Referral to urologist [facility] CT Chest WO contrast [facility] Patient referral [facility] Work Phone: Renal function 1999 panel - Serum or Plasma [facility] Renal function 1999 panel - Serum or Plasma [facility] Immunizations Immunization Date Immunization Notes Care Provider Fa ciliraman 05-02-2023 pneumococcal 20-marco nt conjugate vaccine Ni MARSHALL [facility] 05-02-2023 tetanus toxoid, redu martha diphtheria toxoid, and acellular pertussis vaccine, adsorbed Nichandu OLIVARES [facility] 03-29-2022 SARS-CoV-2 (COVID-19 ) [id number] Ni MARSHALL [facility] 05-18-2021 SARS-CoV-2 (COVID-19 ) Ad26 vaccine, recombinant Ni OLIVARES [facility] 03-30-2021 influenza virus vaccine, unspecified formulation Ni OLIVARES [facility] 09-01-2020 SARS-CoV-2 (COVID-19 ) Ad26 vaccine, recombinant Ni OLIVARES [facility] 06-27-2020 SARS-CoV-2 (COVID-19 ) Ad26 vaccine, recombinant Milton BRAUN [facility] 04-18-2020 influenza virus vaccine, unspecified formulation Ni OLIVARES [facility] 02-05-2020 zoster vaccine recombinant Ni DS [employer] [facility] 12-06-2019 zoster vaccine recombinant Ni DS [employer] [facility] 04-04-2019 influenza virus vaccine, unspecified formulation Milton BRAUN [facility] 04-05-2017 influenza virus vaccine, unspecified formulation Ni OLIVARES [facility] 04-05-2017 pneumococcal conjuga te vaccine, 13 valent Ni OLIVARES [facility] 04-12-2016 influenza, unspecifi ed formulation Ni OLIVARES [facility] Payers Date Payer Category Payer Self-pay [id number] 1959 Private Health Insurance [id number] 1959 Private Health Insurance [id number] 1942 Unknown [id number] 2.16.840.1.768607.3.579.2.356 1942 Unknown [id number] 2.16.840.1.084366.3.579.2.593 1942 Unknown [id number] 2.16.840.1.502683.3.579.2.593 1942 Unknown [id number] 2.16.840.1.260899.3.579.2.593 1942 Unknown [id number] 2.16.840.1.623021.3.579.2.593 1942 Unknown [id number] 2.16.840.1.097781.3.579.2.593 1942 Unknown [id number] 2.16.840.1.993672.3.579.2.593 1942 Unknown [id number] 2.16.840.1.260616.3.579.2.593 1942 Unknown [id number] 2.16.840.1.187638.3.579.2.593 1942 Unknown [id number] 2.16.840.1.168142.3.579.2.593 1942 Unknown [id number] 2.16.840.1.059623.3.579.2.593 1942 Unknown [id number] 2.16.840.1.188152.3.579.2.593 1942 Unknown [id number] 2.16.840.1.059463.3.579.2.593 1942 Unknown [id number] 2.16.840.1.152483.3.579.2.593 1942 Unknown [id number] 2.16.840.1.864414.3.579.2.593 1942 Unknown [id number] 2.16.840.1.637443.3.579.2.593 1942 Unknown [id number] 2.16.840.1.814056.3.579.2.593 1942 Unknown [id number] 2.16.840.1.564417.3.579.2.593 1942 Unknown [id number] 2.16.840.1.436343.3.579.2.593 1942 Unknown [id number] 2.16.840.1.326294.3.579.2.593 1942 Unknown [id number] 2.16.840.1.691920.3.579.2.727 1942 Unknown [id number] 2.16.840.1.048767.3.579.2.727 1942 Unknown [id number] 2.16.840.1.950850.3.579.2.727 1942 Unknown [id number] 2.16.840.1.665883.3.579.2.727 1942 Unknown [id number] 2.16.840.1.613794.3.579.2.727 1942 Unknown [id number] 2.16.840.1.190926.3.579.2.727 1942 Unknown [id number] 2.16.840.1.266948.3.579.2.727 1942 Unknown [id number] 2.16.840.1.692452.3.579.2.727 1942 Unknown [id number] 2.16.840.1.180214.3.579.2.727 1942 Unknown [id number] 2.16.840.1.590527.3.579.2.727 1942 Unknown [id number] 2.16.840.1.889928.3.579.2.727 1942 Unknown [id number] 2.16.840.1.077245.3.579.2.1259 1942 Unknown [id number] 2.16.840.1.683599.3.579.2.1259 Medicare [id number] 2.16.8 [id number] Medicare Medicare [id number] Medicare [id number] 2.1 6.840.1.945972.19 Unknown Hussein BC/BS [id number] Unknown [id number] 2.16.840.1.423528.3.579.2.531 Unknown [id number] 2.16.840.1.404187.3.579.2.531 Unknown [id number] 2.16.840.1.085012.3.579.2.531 Unknown [id number] 2.16.840.1.565972.3.579.2.531 Social History Date Type Detail Facility Start: 08-18-2020 End: 12-20-2023 Tobacco smoking status Ex-smoker (finding) [facility] Other Comment on above: quit in 1978 Sex Assigned At Male [facility] Other Start: 1940 Sex Assigned At Male [facility] Tobacco smoking status Never [facility] [place] Comment on above: quit in 1978 Medical Equipment Procedure Code Equipment Code Equipment Origin al Text Equipment Identifier Dates Cystoscopy, with ureteral calculus manipulation and stent placement Polymeric ureteral stent ()[id number] FDA Start: 06-15-2019 Cystoscopy, with ureteral calculus manipulation and stent placement Polymeric ureteral stent ()[id number] FDA Start: 06-15-2019 Cystoscopy, with ureteral calculus manipulation and stent placement Polymeric ureteral stent ()[id number] FDA Start: 08-13-2022 Biopsy, prostate, with US guidance Polymeric ureteral stent ()[id number] FDA Start: 07-04-2019 CYSTOSCOPY URETEROSCOPY Ni OLIVARES MD 12/02/22 Unknown Ureter R {[id number] FDA Start: 12-02-2022 Goals Date Patient Goal Desired Activity /State Functional Status Date Assessment Result Facility 12-20-2022 Functional Status N/A [facility] 09-06-2022 Functional Status N/A [facility] 08-15-2022 Functional status Patient at Baseline [facility] Work Phone: Mental Status Date Assessment Result Facility 08-15-2022 Cognitive function Cognitive Sta tus Patient at Baseline [facility] Work Phone: Clinical Notes 05-26-2021 to 05-21-2024 Note Date & Type Note Facility 05-21-2024 Note [place] [facility] - [facility] Subjective Victorino Smyth is a [...] March of 2013, and then developed acute GA related to ISR of the LAD stent on 09/28/2016 and underwent emergent Promus JOSE RAMON stent to the LAD at [facility], was on Brilinta but currently on aspirin [...] Allergies Allergies All (more content not included)... [facility] 11-01-2023 Note Patient here for [...] All other systems reviewed and are negative. [facility] 11-01-2023 Note Cardiovascular Medic [facility] SUBJECTIVE Chief Complaint Patient presents with Coronary Artery Disease Hypertension Victorino Smyth is a 83 y.o. male here for follow-up. HPI PMHx: CAD, HLD, HTN, COVID 07/2023 -CAD and drug eluting stenting of LAD in March of 2013, and then developed acute GA related to ISR of the LAD stent on 09/28/2016 and underwent emergent Promus JOSE RAMON stent to the LAD at [facility], was on Brilinta but currently on aspirin [...] leg: Edema present. (more content not included)... [facility] 08-23-2023 Note [facility] SUBJECTIVE No chief complaint on file. Victorino Smyth is a 83 y.o. male here for follow-up. Patient here for 6 mo follow up CAD, hypertension, and hyperlipidemia. He was discharged from [facility] a few weeks ago for Covid-19. Feels much better and is still regaining his strength. Denies chest pain, palpitations, and lightheadedness/syncope. HPI PMHx: CAD, HLD, HTN -CAD and drug eluting stenting of LAD in March of 2013, and then developed acute GA related to ISR of the LAD stent on 09/28/2016 and underwent emergent Promus JOSE RAMON stent to the LAD at [facility], was on Brilinta but currently on aspirin [...] Cardiovascular: Rate an (more content not included)... [facility] 08-23-2023 Note Patient here for 6 m o follow up CAD, hypertension, and hyperlipidemia. He was discharged from [facility] a few weeks ago for Covid-19. Feels much better and is still regaining his strength. Denies chest pain, palpitations, and lightheadedness/syncope. Patient states his BP in the mornings before medications has been running around 100/55. Review of Systems Cardiovascular: Positive for dyspnea on exertion. Musculoskeletal: Positive for arthritis, back pain and joint pain. All other systems reviewed and are negative. 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 [facility] Other 12-19-2023 Hospital Discharge instructions Patient Education [...] include: ?8 oz (237 mL) of milk, daxfqjk-ctkhgftugsxw-hbquo milk, and calcium- fortifiedfruit juice. Calcium-fortified means [...] ?Spinach (cooked), rhubarb, beets, sweet potatoes, and Turkmen chard. ?Peanuts. ?Potato chips, nigerien fries, and baked potatoes with skin on. ?Nuts and nut products. ?Chocolate. If you regularly take a diuretic medicine, make sure to eat at least 1 or 2 servings of fruits or vegetables that are high in potassium each day. These include: ?Avocado. ?Banana. ?[place], prune, carrot, or tomato juice. ?Baked potato. [...] magnesium, fish oil, or vitamin B6. Take xmyl-rei-sckzqck and prescription medicines only as told by [...] Casseroles. Pizza. Lasagna. Frozen meals. Potato chips. Serbian fries. The items listed above may not [...] Document Reviewed: 09/23/2022 Elsevier Patient Education 2022 Crossfader. Follow Up Care 02/04/2023 14:47:08 With:MARSHALL OLIVEROS, Ni Garcia, URL Address: [address] [place] [address] [place], [place] [id number]- When: Unknown [facility] [place] [id number] Note [id number]:127[facility] 12-20-2022 NoteCystoscopy with Stent Removal ? Voiding [...] if you have a fever over 100 degrees.[facility] 12-20-2022 Hospital Discharge instructions Patient Education 12/20/2022 [...] With:Ni OLIVARES Address: [address] [place] [address]- Business (1) When:6 months Comments:Call for followup [...] those arrangements as well.Have a great day. [facility]06-05-2023 Evaluation note* Encounter Date Diagnosis Assessment Notes Treatment Notes Treatment Clinical Notes Nov, Diabetes mellitus wi th chronic kidney disease (ICD-10 - E11.22) He has ytl-azykqna-zdln ndent type 2 diabetes and currently takes [...] and has normal B12 and folate level. [facility] Other 05-24-2023 Note [id number]:127[facility] 10-07-2022 Hospital Discharge instructions Patient Education 10/07/2022 [...] Follow these instructions at home: Medicines Take hhgv-zqd-pyiidga and prescription medicines only as told by [...] 07/02/2008 Document Revised: 09/24/2019 Document Reviewed: 05/04/2017 MyMedMatch Patient Education 2020 Crossfader. Follow Up Care 09/06/2022 10:38:13 With:Ni OLIVARES Address: [address] [place] [address] [place], [place] [id number] Business (1) When: Unknown Comments:We were able [...] prior to considering any other anesthesia procedures. [facility]04-13-2023 Evaluation + Plan noteExtracted from: Title:KALEN post op Author:Timothy Pittman MD Date:10/07/22 Plan Transfer/Discharge: Transfer/Discharge Discharge when meets criteria ( To home ). Extracted from: Title:[place] Author:Timothy Pittman MD S. Date:10/07/22 Plan [place] [employer] Anesthesiologists (ASA) physical status classification: Class III. Anesthetic Preoperative Plan: Anesthesia General. Future Appointments Appointment Date:10/29/2022 08:45:00 AM Scheduled Provider:Milton BRAUN MD Location:[facility] Appointment Type:URO Office Visit [facility]03-23-2023 Note [id number]:127[facility] 09-15-2022 Evaluation note* Encounter Date Diagnosis Assessment Notes Treatment Notes Treatment Clinical Notes Aug, Diabetes mellitus wi th chronic kidney disease (ICD-10 - E11.22) He has iae-fnsqpuu-rvmo ndent type 2 diabetes and currently takes [...] have advised him to adequately hydrate himself. [facility] Other [id number] Hospital Discharge instructions Patient Education 09/06/2022 10:27:16 Kidney Stones, Ppre-dj-Ealu Kidney Stones Kidney stones are rock-like masses [...] Follow these instructions at home: Medicines Take ajze-kws-oevbsrv and prescription medicines only as told by [...] 11/29/2008 Document Revised: 10/30/2019 Document Reviewed: 10/30/2019 MyMedMatch Patient Education 2019 Crossfader. Follow Up Care 08/17/2022 09:18:37 With:MARSHALL OLIVEROS, Ni Garcia, URL Address: [facility] [place] [id number]- When: Unknown [facility] 02-21-2023 Note [id number]:127[facility] 08-15-2022 Discharge summary Author Hiral Interiano [facility] August 15, 2022 1:50pm Note Date/Time August 15, 2022 1:50pm [facility] [address] [place], [place] [id number] Discharge Summary Signed Patient: Victorino Smyth MR#: [id number] : 1940 Acct:[id number] Age/Sex: 82 / M Adm Date: 3 Loc: Room: [address] [place] [address]: Hiral Interiano MD Copies to: [...] nephrolithiasis. He initially presented to [facility] ER with complaint of hypoglycemia and was found to have severe renal failure along with metabolic acidosis and hyperkalemia. CT scan at [facility] showed atrophic left kidney with obstructing stone in the right ureteropelvic junction. Patient was transferred to [facility] for further intervention. On arrival is [...] is also advised to follow-up with his food expeditor in 4-week. CT scan at [facility] also showed 0.8 cm nodule [...] Low-Cholesterol Additional Instructions: Follow-up with your Primary Complex Human Resources Manager in 4 weeks. Avoid NSAIDs for pain [...] office on Tuesday to schedule follow-up with Campus President. ) Documented By: Hiral Interiano MD 08/15/22 4158 Signed By: <Electronically signed by Hiral Interiano MD> 08/15/[address] [facility] Work Phone: 1(893) 611-619102-19-2023 Progress note Author Alicia Perea [facility] August 15, 2022 12:01pm Note Date/Time August 15, 2022 12:01pm [facility] [address] [place], [place] [address] Nephrology Progress Note Signed Patient: Victorino Smyth MR#: [id number] : 1940 Acct:[id number] Age/Sex: 82 / M Adm Date: 3 Loc: 4N Room: 2C7687-6 Type: ADM IN Attending Dr: Hiral Interiano MD Copies to: ~ Date of Service: 08/15/2022 Subjective Subjective Narrative: This is a 82-year-old male with a medical history of coronary artery disease s/pPCI, nephrolithiasis, CKD, diabetes mellitus, hypertension, dyslipidemia was presented to the emergency room of [facility] for generalized weakness and low urine output. On evaluation emergency room patient was found to have a life- threatening hyperkalemia with serum potassium 7 mmol/L, acute kidney injurywith elevated serum creatinine 17.8 mg/dL, metabolic acidosis serum bicarbonate 13.5 mmol/L. He was given insulin D50 calcium gluconate in the [place] emergency room. He had a CAT scan abdomen pelvis done which showed obstructive kidney stones in the right UPJ and total atrophy of the left kidney. Case was discussed with the on-call urologist Dr. Olivares and recommended patient needs to be n.p.o. for surgical intervention. He was transferred to [facility] for further care. Patient is history of CKD due to the longstanding DM, HTN and recurrent KELSEA with baseline serum creatinine 1.4 to 1.6 mg/dL. He follows in my office for his CKD care. Patient after arrival at the [facility] hada repeat labs done which showed persistent [...] visible mass Skin: No rashes or bruises ENCAPSULATOR: Awake,Alert, following simple command Musculoskeletal: No joint [...] 10 Mg Tablet) 10 mg PO DAILY [facility] Stop: 08/16/23 08:59 Aspirin (Aspirin 81 Mg Tablet.Dr) 81 mg PO DAILY [facility] Stop: 08/12/23 08:59 Last Admin: 08/15/22 09:45 Dose: 81 mg Atorvastatin Calcium (Atorvastatin 40 Mg Tablet) 40 mg PO HS [facility] Stop: 08/11/23 21:59 Last Admin: 08/14/22 21:08 Dose: 40 mg Dextrose (Dextrose 50% In Water 25 Gm/50 Ml Syringe) 0 gm IV-PUSH PRN PRN PRN Reason: Hypoglycemia Stop: 08/11/23 14:01 Doxycycline Hyclate (Doxycycline Hyclate 100 Mg Tablet) 100 mg PO BID [facility] Stop: 08/18/22 20:59 Last Admin: 08/15/22 09:45 Dose: 100 mg Glucose (Dextrose 40% Gel 15 Gm Tube) 0 gm PO PRN PRN PRN Reason: Hypoglycemia Stop: 08/11/23 14:01 Guaifenesin (Guaifenesin 600 Mg Tab.Er.12h) 1,200 mg PO BID [facility] Stop: 08/12/23 20:59 Last Admin: 08/15/22 09:45 [...] Units/3 Ml Insuln.Pen) 0 units SUBCUT TID.WM.HS [facility]; Protocol Stop: 08/11/23 16:59 Last Admin: 08/15/22 09:46 Dose: 5 units Insulin Glargine (Insulin Glargine 300 Units/3 Ml Insuln.Pen) 5 units SUBCUT DAILY [facility] Stop: 08/13/23 08:59 Last Admin: 08/15/22 09:47 Dose: 5 units Melatonin (Melatonin 5 Mg Tablet) 5 mg PO QHS PRN PRN Reason: insomnia Stop: 08/14/23 21:59 Last Admin: 08/14/22 21:08 Dose: 5 mg Metoprolol Tartrate (Metoprolol Tartrate 50 Mg Tablet) 50 mg PO BID [facility] Stop: 08/11/23 20:59 Last Admin: 02/19/23 09:45 [...] office. Documented By: Alicia Perea MD 08/15/22 1156 Signed By: <Electronically signed by Alicia Perea MD> 08/15/[address] [facility] Work Phone: 1(859) 894-687402-19-2023 Progress note Author Cade Alvarez [facility] August 15, 2022 11:31am Note Date/Time August 15, 2022 11:31am [facility] [address] [place] [address] Cardiology Progress Note Signed Patient: Victorino Smyth MR#: [id number] : 1940 Acct:[id number] Age/Sex: 82 / M Adm Date: 3 Loc: 4N Room: [address] [address] Type: ADM IN Attending Dr: Hiral Interiano [...] patient has cardiology follow-up with his primary food expeditor in [place] within 4 weeks of discharge. (2) CAD (coronary artery disease): Code(s): I25.10 - Atherosclerotic heart disease of tangirnaq coronary artery without angina pectoris Status: Acute [...] Cade Alvarez MD> 08/15/22 1131 [facility] Work Phone: 1([phone]) 727-873602-18-2023 Progress note Author Hiral Interiano [facility] August 14, 2022 2:57pm Note Date/Time August 14, 2022 2:49pm [facility] [address] [place] [address] Hospitalist Progress Note Signed Patient: Victorino Smyth MR#: [id number] : 1940 Acct:[id number] Age/Sex: 82 / M Adm Date: 3 Loc: 4N Room: [address] [place] [address] Type: ADM IN Attending Dr: Hiral Interiano [...] Insuln.Pen SUBCUT 08/11/23 16:59 Not Given TID.WM.HS [facility] Protocol Insulin Glargine 5 units 08/13/22 09:00 [...] <Electronically signed by Hiral Interiano MD> 08/14/[address] [facility] Work Phone: 1(759) 752-542302-18-2023 Progress note Author Alicia Perea [facility] August 14, 2022 11:55am Note Date/Time August 14, 2022 11:55am [facility] [address] [place] [address] Nephrology Progress Note Signed Patient: Victorino Smyth MR#: [id number] : 1940 Acct:[id number] Age/Sex: 82 / M Adm Date: 3 Loc: 4N Room: 8R3171-4 Type: ADM IN Attending Dr: Hiral Interiano MD Copies to: ~ Date of Service: 08/14/2022 Subjective Subjective Narrative: This is a 82-year-old male with a medical history of coronary artery disease s/pPCI, nephrolithiasis, CKD, diabetes mellitus, hypertension, dyslipidemia was presented to the emergency room of [facility] for generalized weakness and low urine output. On evaluation emergency room patient was found to have a life- threatening hyperkalemia with serum potassium 7 mmol/L, acute kidney injurywith elevated serum creatinine 17.8 mg/dL, metabolic acidosis serum bicarbonate 13.5 mmol/L. He was given insulin D50 calcium gluconate in the [place] emergency room. He had a CAT scan abdomen pelvis done which showed obstructive kidney stones in the right UPJ and total atrophy of the left kidney. Case was discussed with the on-call urologist Dr. Olivares and recommended patient needs to be n.p.o. for surgical intervention. He was transferred to [facility] for further care. Patient is history of CKD due to the longstanding DM, HTN and recurrent KELSEA with baseline serum creatinine 1.4 to 1.6 mg/dL. He follows in my office for his CKD care. Patient after arrival at the [facility] hada repeat labs done which showed persistent [...] visible mass Skin: No rashes or bruises ENCAPSULATOR: Awake,Alert, following simple command Musculoskeletal: No joint [...] 81 Mg Tablet.Dr) 81 mg PO DAILY [facility] Stop: 08/12/23 08:59 Last Admin: 08/14/22 08:22 Dose: 81 mg Atorvastatin Calcium (Atorvastatin 40 Mg Tablet) 40 mg PO HS [facility] Stop: 08/11/23 21:59 Last Admin: 08/13/22 21:12 [...] 5,000 Unit/Ml Vial) 5,000 unit SUBCUT Q8HR [facility] Stop: 08/12/23 21:59 Last Admin: 08/14/22 06:05 Dose: Not Given Hydralazine HCl (Hydralazine 20 Mg/Ml Vial) 10 mg IV-PUSH Q4H PRN PRN Reason: Hypertension Stop: 08/11/23 13:40 Last Admin: 08/14/22 05:44 Dose: 10 mg Ceftriaxone Sodium (Rocephin) 1 gm in 50 mls @ 100 mls/hr IV Q24H [facility] Stop: 08/14/22 14:14 Last Admin: 08/13/22 15:07 Dose: 100 mls/hr Sodium Chloride (0.9% Sodium Chloride 1,000 Ml) 1,000 mls @ 0 mls/hr MISCELLANE.Q0M PRN PRN Reason: Dialysis Stop: 08/11/23 14:19 Last Infusion: 08/12/22 12:38 Dose: Infused Insulin Aspart (Insulin Aspart 300 Units/3 Ml Insuln.Pen) 0 units SUBCUT TID.WM.HS [facility]; Protocol Stop: 08/11/23 16:59 Last Admin: 08/14/22 11:50 Dose: Not Given Insulin Glargine (Insulin Glargine 300 Units/3 Ml Insuln.Pen) 5 units SUBCUT DAILY [facility] Stop: 08/13/23 08:59 Last Admin: 08/13/22 08:45 Dose: Not Given Metoprolol Tartrate (Metoprolol Tartrate 50 Mg Tablet) 50 mg PO BID [facility] Stop: 08/11/23 20:59 Last Admin: 08/14/22 08:23 [...] Perez Jr. DManoharOManohar08/13/2022 2:25 PM Dictation Location: [place] [address] Any impression(s) listed above is documentation that [...] <Electronically signed by Alicia Perea MD> 08/14/[address] [facility] Work Phone: [phone]) [phone] Progress note Author Cade Alvarez [facility] August 14, 2022 11:21am Note Date/Time August 14, 2022 11:21am [facility] [address] [place] [address] Cardiology Progress Note Signed Patient: Victorino Smyth MR#: [id number] : 1940 Acct:[id number] Age/Sex: 82 / M Adm Date: 3 Loc: 4N Room: [address] [address] Type: ADM IN Attending Dr: Hiral Interiano [...] % (Auto) 79.6 Lymph % (Auto) 7.8 [place] % (Auto) 11.4 Eos % (Auto) 1.0 Baso % (Auto) 0.2 Nucleat RBC Rel Count 0.1 Neut # (Auto) 5.9 Lymph # (Auto) 0.6 L [place] # (Auto) 0.8 Eos # (Auto) 0.1 [...] MPV Neut % (Auto) Lymph % (Auto) [place] % (Auto) Eos % (Auto) Baso % (Auto) Nucleat RBC Rel Count Neut # (Auto) Lymph # (Auto) [place] # (Auto) Eos # (Auto) Baso # [...] make sure that he has follow-up in [facility] within 4 weeks of discharge. (2) CAD (coronary artery disease): Assessment/Problem Details: Stable/quiescent. No ischemic complications with yesterday's urological procedure. Code(s): I25.10 - Atherosclerotic heart disease of tangirnaq coronary artery without angina pectoris Status: Acute Plan: Medical recommendations as above. Plan Thank you very much for this kind consultation and for allowing us to participate in the care of this very pleasant patient Time spent with patient Time Spent With Patient (min): 30 Documented By: Cade Alvarez MD 08/14/22 1118 Signed By: <Electronically signed by Cade Alvarez MD> 08/14/[address] [facility] Work Phone: 1(842) 563-859802-17-2023 Progress note Author Hiral Interiano [facility] August 13, 2022 3:09pm Note Date/Time August 13, 2022 3:02pm [facility] [address] [place] [address] Hospitalist Progress Note Signed Patient: Victorino Smyth MR#: [id number] : 1940 Acct:[id number] Age/Sex: 82 / M Adm Date: 3 Loc: 4N Room: [address] [place] [address] Type: ADM IN Attending Dr: Hiral Interiano [...] Insuln.Pen SUBCUT 08/11/23 16:59 Not Given TID.WM.HS [facility] Protocol Insulin Glargine 5 units 08/13/22 09:00 [...] signed by Hiral Interiano MD> 08/13/[address] [facility] Work Phone: [phone] Progress note Author Alicia Perea [facility] August 13, 2022 11:29am Note Date/Time August 13, 2022 11:25am [facility] [address] [place] [address] Nephrology Progress Note Signed Patient: Victorino Smyth MR#: [id number] : 1940 Acct:[id number] Age/Sex: 82 / M Adm Date: 3 Loc: Room: [address] [place] [address] Type: ADM IN Attending Dr: Hiral Interiano MD Copies to: ~ Date of Service: 08/13/2022 Subjective Subjective Narrative: This is a 82-year-old male with a medical history of coronary artery disease s/pPCI, nephrolithiasis, CKD, diabetes mellitus, hypertension, dyslipidemia was presented to the emergency room of [facility] for generalized weakness and low urine output. On evaluation emergency room patient was found to have a life- threatening hyperkalemia with serum potassium 7 mmol/L, acute kidney injurywith elevated serum creatinine 17.8 mg/dL, metabolic acidosis serum bicarbonate 13.5 mmol/L. He was given insulin D50 calcium gluconate in the [place] emergency room. He had a CAT scan abdomen pelvis done which showed obstructive kidney stones in the right UPJ and total atrophy of the left kidney. Case was discussed with the on-call urologist Dr. Olivares and recommended patient needs to be n.p.o. for surgical intervention. He was transferred to [facility] for further care. Patient is history of CKD due to the longstanding DM, HTN and recurrent KELSEA with baseline serum creatinine 1.4 to 1.6 mg/dL. He follows in my office for his CKD care. Patient after arrival at the [facility] hada repeat labs done which showed persistent [...] visible mass Skin: No rashes or bruises ENCAPSULATOR: Awake,Alert, following simple command Musculoskeletal: No joint [...] 81 Mg Tablet.) 81 mg PO DAILY [facility] Stop: 08/12/23 08:59 Last Admin: 08/13/22 08:44 Dose: Not Given Atorvastatin Calcium (Atorvastatin 40 Mg Tablet) 40 mg PO HS [facility] Stop: 08/11/23 21:59 Last Admin: 08/12/22 21:07 [...] 50 mls @ 100 mls/hr IV Q24H [facility] Last Admin: 08/12/22 16:24 Dose: 100 mls/hr Azithromycin (Zithromax) 500 mg in 250 mls @ 250 mls/hr IV Q24H [facility] Last Admin: 08/12/22 15:06 Dose: 250 mls/hr Sodium Chloride (0.9% Sodium Chloride 1,000 Ml) 1,000 mls @ 0 mls/hr MISCELLANE.Q0M PRN PRN Reason: Dialysis Stop: 08/11/23 14:19 Last Infusion: 08/12/22 12:38 Dose: Infused Insulin Aspart (Insulin Aspart 300 Units/3 Ml Insuln.Pen) 0 units SUBCUT TID.WM.HS [facility]; Protocol Stop: 08/11/23 16:59 Last Admin: 08/13/22 08:44 Dose: Not Given Insulin Glargine (Insulin Glargine 300 Units/3 Ml Insuln.Pen) 5 units SUBCUT DAILY [facility] Stop: 08/13/23 08:59 Last Admin: 08/13/22 08:45 Dose: Not Given Metoprolol Tartrate (Metoprolol Tartrate 50 Mg Tablet) 50 mg PO BID [facility] Stop: 08/11/23 20:59 Last Admin: 08/13/22 08:45 [...] Alicia Perea MD> 08/13/22 1129 [facility] Work Phone: [phone] Progress note Author Cade Alvarez [facility] August 13, 2022 9:40am Note Date/Time August 13, 2022 9:35am [facility] [address] [place] [address] Cardiology Progress Note Signed Patient: Victorino Smyth MR#: [id number] : 1940 Acct:[id number] Age/Sex: 82 / M Adm Date: 3 Loc: Room: [address] [place] [address] Type: ADM IN Attending Dr: Hiral Interiano [...] MPV Neut % (Auto) Lymph % (Auto) [place] % (Auto) Eos % (Auto) Baso % (Auto) Nucleat RBC Rel Count Neut # (Auto) Lymph # (Auto) [place] # (Auto) Eos # (Auto) Baso # [...] RNA (PCR) IU/mL N/A HCV 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 PCR stroboscope 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 log10 N/A Hepatitis C Interp 08/12/22 08/12/22 08/13/22 19:37 21:06 04:28 Corrected WBC 9.9 Uncorrected WBC Count 9.9 RBC 3.54 L Hgb 11.6 L Hct 34.2 L MCV 96.5 MCH 32.9 MCHC 34.1 RDW 13.7 Plt Count 129 L MPV 8.7 Neut % (Auto) 79.2 Lymph % (Auto) 9.6 [place] % (Auto) 9.8 Eos % (Auto) 0.9 Baso % (Auto) 0.5 Nucleat RBC Rel Count 0.1 Neut # (Auto) 7.8 H Lymph # (Auto) 0.9 L [place] # (Auto) 1.0 H Eos # (Auto) [...] HCV RNA (PCR) IU/mL HCV RNA PCR stroboscope operator log10 Hepatitis C Interp 08/13/22 08/13/22 04:28 05:25 Corrected WBC Uncorrected WBC Count RBC Hgb Hct MCV MCH MCHC RDW Plt Count MPV Neut % (Auto) Lymph % (Auto) [place] % (Auto) Eos % (Auto) Baso % (Auto) Nucleat RBC Rel Count Neut # (Auto) Lymph # (Auto) [place] # (Auto) Eos # (Auto) Baso # [...] HCV RNA (PCR) IU/mL HCV RNA PCR stroboscope operator log10 Hepatitis C Interp A&P - Cardiology [...] Code(s): I25.10 - Atherosclerotic heart disease of tangirnaq coronary artery without angina pectoris Status: Acute Plan: Preoperative recommendations as above. Plan Thank you very much for this kind consultation and for allowing us to participate in the care of this very pleasant patient Time spent with patient Time Spent With Patient (min): 30 Documented By: Cade Alvarez MD 08/13/22 0934 Signed By: <Electronically signed by Cade Alvarez MD> 08/13/[address] [facility] Work Phone: 1(479) 380-264102-16-2023 Progress note Author Hiral Interiano [facility] August 12, 2022 4:04pm Note Date/Time August 12, 2022 4:04pm [facility] [address] [place] [address] Hospitalist Progress Note Signed Patient: Victorino Smyth MR#: [id number] : 1940 Acct:[id number] Age/Sex: 82 / M Adm Date: 3 Loc: Room: [address] [place] [address] Type: ADM IN Attending Dr: Hiral Interiano [...] Insuln.Pen SUBCUT 08/11/23 16:59 Not Given TID.WM.HS [facility] Protocol Metoprolol Tartrate 50 mg 08/11/22 21:00 [...] kidney disease: Plan: Patient was transferred from [place] ER when found to have acute kidney [...] <Electronically signed by Hiral Interiano MD> 08/12/[address] [facility] Work Phone: [phone]) [phone] Progress note Author Alicia Perea [facility] August 12, 2022 11:29am Note Date/Time August 12, 2022 11:24am [facility] [address] [place] [address] Nephrology Progress Note Signed Patient: Victorino Smyth MR#: [id number] : 1940 Acct:[id number] Age/Sex: 82 / M Adm Date: 3 Loc: Room: [address] [place] [address] Type: ADM IN Attending Dr: Hiral Interiano MD Copies to: ~ Date of Service: 08/12/2022 Subjective Subjective Narrative: This is a 82-year-old male with a medical history of coronary artery disease s/pPCI, nephrolithiasis, CKD, diabetes mellitus, hypertension, dyslipidemia was presented to the emergency room of [facility] for generalized weakness and low urine output. On evaluation emergency room patient was found to have a life- threatening hyperkalemia with serum potassium 7 mmol/L, acute kidney injurywith elevated serum creatinine 17.8 mg/dL, metabolic acidosis serum bicarbonate 13.5 mmol/L. He was given insulin D50 calcium gluconate in the [place] emergency room. He had a CAT scan abdomen pelvis done which showed obstructive kidney stones in the right UPJ and total atrophy of the left kidney. Case was discussed with the on-call urologist Dr. Olivarse and recommended patient needs to be n.p.o. for surgical intervention. He was transferred to [facility] for further care. Patient is history of CKD due to the longstanding DM, HTN and recurrent KELSEA with baseline serum creatinine 1.4 to 1.6 mg/dL. He follows in my office for his CKD care. Patient after arrival at the [facility] hada repeat labs done which showed persistent [...] visible mass Skin: No rashes or bruises ENCAPSULATOR: Awake,Alert, following simple command Musculoskeletal: No joint [...] 50 mls @ 100 mls/hr IV Q24H [facility] Last Infusion: 08/11/22 21:49 Dose: Infused Azithromycin (Zithromax) 500 mg in 250 mls @ 250 mls/hr IV Q24H [facility] Last Admin: 08/11/22 16:00 Dose: 250 mls/hr Sodium Chloride (0.9% Sodium Chloride 1,000 Ml) 1,000 mls @ 0 mls/hr MISCELLANE.Q0M PRN PRN Reason: Dialysis Stop: 08/11/23 14:19 Last Admin: 08/12/22 10:24 Dose: 999 mls/hr Insulin Aspart (Insulin Aspart 300 Units/3 Ml Insuln.Pen) [address]..[facility]; Protocol Stop: 08/11/23 16:59 Last Admin: 08/12/22 08:07 Dose: Not Given Metoprolol Tartrate (Metoprolol Tartrate 50 Mg Tablet) 50 mg PO BID [facility] Stop: 08/11/23 20:59 Last Admin: 08/12/22 08:20 [...] M.D.08/11/2022 4:10 PM Dictation Location: [place] [address] Any impression(s) listed above is documentation that [...] <Electronically signed by Alicia Perea MD> 08/12/22 0424 [facility] Work Phone: 1(882) 989-841202-16-2023 Progress note Author Cade Alvarez [facility] August 12, 2022 10:04am Note Date/Time August 12, 2022 10:05am [facility] [address] [place] [address] Cardiology Progress Note Signed Patient: Victorino Smyth MR#: [id number] : 1940 Acct:[id number] Age/Sex: 82 / M Adm Date: 3 Loc: Room: [address] [place] [address] Type: ADM IN Attending Dr: Hiral Interiano [...] % (Auto) N/A Lymph % (Auto) N/A [place] % (Auto) N/A Eos % (Auto) N/A Baso % (Auto) N/A Nucleat RBC Rel Count N/A Neut # (Auto) N/A Lymph # (Auto) N/A [place] # (Auto) N/A Eos # (Auto) N/A [...] MPV Neut % (Auto) Lymph % (Auto) [place] % (Auto) Eos % (Auto) Baso % (Auto) Nucleat RBC Rel Count Neut # (Auto) Lymph # (Auto) [place] # (Auto) Eos # (Auto) Baso # [...] MPV Neut % (Auto) Lymph % (Auto) [place] % (Auto) Eos % (Auto) Baso % (Auto) Nucleat RBC Rel Count Neut # (Auto) Lymph # (Auto) [place] # (Auto) Eos # (Auto) Baso # [...] % (Auto) 88.0 Lymph % (Auto) 4.4 [place] % (Auto) 7.4 Eos % (Auto) 0.0 Baso % (Auto) 0.2 Nucleat RBC Rel Count 0.0 Neut # (Auto) 11.8 H Lymph # (Auto) 0.6 L [place] # (Auto) 1.0 H Eos # (Auto) [...] MPV Neut % (Auto) Lymph % (Auto) [place] % (Auto) Eos % (Auto) Baso % (Auto) Nucleat RBC Rel Count Neut # (Auto) Lymph # (Auto) [place] # (Auto) Eos # (Auto) Baso # [...] Code(s): I25.10 - Atherosclerotic heart disease of tangirnaq coronary artery without angina pectoris Status: Acute Plan: Preoperative recommendations as above. Plan Thank you very much for this kind consultation and for allowing us to participate in the care of this very pleasant patient Time spent with patient Time Spent With Patient (min): 30 Documented By: Cade Alvarez MD 08/12/22 0959 Signed By: <Electronically signed by Cade Alvarez MD> 08/12/[address] [facility] Work Phone: 1(512) 534-243802-15-2023 Consult note Author Alicia Perea [facility] August 11, 2022 5:46pm Note Date/Time August 11, 2022 4:00pm [facility] [address] [place] [address] Nephrology Consult Note Signed with Addenda Patient: Victorino Smyth MR#: [id number] : 1940 Acct:[id number] Age/Sex: 82 / M Adm Date: 3 Loc: Room: [address] [place] [address] Type: ADM IN Attending Dr: Hiral Interiano [...] MD Primary Care Provider: Tray Alfaro MD [facility] Reason for Consult: KELSEA on CKD, hyperkalemia, metabolic acidosis management History of Present Illness: This is a 82-year-old male with a medical history of coronary artery disease s/pPCI, nephrolithiasis, CKD, diabetes mellitus, hypertension, dyslipidemia was presented to the emergency room of [facility] for generalized weakness and low urine output. On evaluation emergency room patient was found to have a life- threatening hyperkalemia with serum potassium 7 mmol/L, acute kidney injurywith elevated serum creatinine 17.8 mg/dL, metabolic acidosis serum bicarbonate 13.5 mmol/L. He was given insulin D50 calcium gluconate in the [facility] emergency room. He had a CAT scan abdomen pelvis done which showed obstructive kidney stones in the right UPJ and total atrophy of the left kidney. Case was discussed with the on-call urologist Dr. Olivares and recommended patient needs to be n.p.o. for surgical intervention. He was transferred to [facility] for further care. Patient is history of CKD due to the longstanding DM, HTN and recurrent KELSEA with baseline serum creatinine 1.4 to 1.6 mg/dL. He follows in my office for his CKD care. Patient after arrival at the [facility] hada repeat labs done which showed persistent [...] 250 mls @ 250 mls/hr IV Q24H [facility] Sodium Chloride (0.9% Sodium Chloride 1,000 Ml) [...] visible mass Skin: No rashes or bruises ENCAPSULATOR: Awake,Alert, following simple command Musculoskeletal: No joint [...] Patient consented for dialysis. I consulted the timber hand for hemodialysis catheter placement which was placed [...] <Electronically signed by Alicia Perea MD> 08/11/[address] [facility] Work Phone: 1([phone]) 211-408302-15-2023 Consult note Author Cade Alvarez [facility] August 11, 2022 4:47pm Note Date/Time August 11, 2022 4:36pm [facility] [address] [place] [address] Cardiology Consult Note Signed Patient: Victorino Smyth MR#: [id number] : 1940 Acct:[id number] Age/Sex: 82 / M Adm Date: 3 Loc: Room: [address] [place] [address] Type: ADM IN Attending Dr: Hiral Interiano [...] syndrome in 2017. Patient initially presented to [facility] emergency department complaining of shortness of breath [...] # (Auto) N/A Lymph # (Auto) N/A [place] # (Auto) N/A Eos # (Auto) N/A [...] nonspecific abnormality, ST segment, and/or T wave GA, pacemaker, normal Normal tracing: no change compared [...] Code(s): I25.10 - Atherosclerotic heart disease of tangirnaq coronary artery without angina pectoris Plan Thank you very much for this kind consultation and for allowing us to participate in the care of this very pleasant patient Documented By: Cade Alvarez MD 08/11/22 163 Signed By: <Electronically signed by Cade Alvarez MD> 08/11/[address] [facility] Work Phone: 1(861) 231-392002-15-2023 Consult note Author Ni Olivares [facility] August 11, 2022 3:24pm Note Date/Time August 11, 2022 3:24pm [facility] [address] [place] [address] Urology Consult Note Signed Patient: Victorino Smyth MR#: [id number] : 1940 Acct:[id number] Age/Sex: 82 / M Adm Date: 3 Loc: Room: [address] [place] [address] Type: ADM IN Attending Dr: Hiral Interiano MD Copies to: MD Ni James MD Mazhar Rahman, MD~ History of Present Illness Consult Details Consult Date: 08/11/2022 Requesting Provider: Hiral Interiano MD HPI: Mr. Smyth is an 82-year-old man transferred from the [facility]. The patient presented with some diffuse abdominal complaints, decreased urine output, and was found to be in profound renal failure with a creatinine of17 and a BUN over 150. He was hyperkalemic and acidotic. He was transferred with plans for the possibility of cystoscopy and or [facility] He essentially has a nonfunctioning atrophic left kidney and a large obstructing stone at the right ureteropelvic junction. Apparently the patient had breakfast in the emergency room prior to transfer to [facility]. He finished breakfast at about [...] P documented by Dr. Interiano earlier today [facility] Vaccinated for COVID-19?: Yes Medical History (Updated [...] % (Auto) N/A, Lymph % (Auto) N/A, [place] % (Auto) N/A, Eos % (Auto) N/A, Baso % (Auto) N/A, Nucleat RBC Rel Count N/A, Neut # (Auto) N/A, Lymph # (Auto) N/A, [place] # (Auto) N/A, Eos # (Auto) N/A, [...] than that noted at the [facility] at a current level of 7.4. [...] <Electronically signed by MD Ni Olivares> 08/11/[address] [facility] Work Phone: 1(695) 893-837002-15-2023 History and physical note Author Hiral Interiano [facility] August 11, 2022 2:02pm Note Date/Time August 11, 2022 2:02pm [facility] [address] [place] [address] Hospitalist H&P Signed Patient: Victorino Smyth MR#: [id number] : 1940 Acct:[id number] Age/Sex: 82 / M Adm Date: 3 Loc: Room: [address] [place] [address] Type: ADM IN Attending Dr: Hiral Interiano [...] Patient has been transferred from [facility] ER for acute kidney injury and [...] repeated labs available in the record from [facility]. Chest x-ray read as mild bilateral [...] a similar feeling when he had an GA in 2017 and prior to that in [...] negative unless noted below or in HPI [facility] Medical History (Updated 08/11/22 @ 13:59 by [...] type 2. He has been transferred from [facility] for obstructive uropathy with worsening renal failure and hyperkalemia. I was informed the patient was given cocktail for hyperkalemia with no repeated labs available in the record. Patient arrival to floor complaining of midsternal discomfort and mentioned having similar feeling when he had an GA. Does appear tachypneic likely from metabolic acidosis. [...] signed by Hiral Interiano MD> 08/11/22 1406 [facility] Work Phone: 1([phone]) 658-526602-15-2023 [facility]* Encounter Date Diagnosis Assessment Notes Treatment Notes Treatment Clinical Notes May, Diabetes mellitus wi th chronic kidney disease (ICD-10 - E11.22) He has duc-ostkcpb-lqxs ndent type 2 diabetes and currently takes [...] have advised him to adequately hydrate himself. [facility] Other 08-11-2022 NotePROCEDURE: XR KNEE LT 4V or > COMPARISON: None. HISTORY: Pain of left knee joint FINDINGS: BONES:No acute fracture or dislocation. Minimal degenerative changes. SOFT TISSUES:Negative. No visible soft tissue swelling. EFFUSION:None visible. OTHER: Vascular calcification IMPRESSION: No acute abnormality Electronically authenticated by: TYLER MONSIVAIS Date: 2022-02-04 07:23[facility]05-31-2022 Evaluation note* Encounter Date Diagnosis Assessment Notes Treatment Notes Treatment Clinical Notes October, Diabetes mellitus wi th chronic kidney disease (ICD-10 - E11.22) He has qpb-xfekrke-apecz dent type 2 diabetes and currently takes [...] have advised him to adequately hydrate himself. [facility] Other 05-02-2022 Hospital Discharge instructions Follow Up Care 10/26/2021 10:06:54 With:KADE OLIVEROS, Milton R, URL Address: [address] [place] [address]- When: Unknown [facility] 05-02-2022 Hospital Discharge instructions Patient Education 10/26/2021 [...] 06/13/2006 Document Revised: 03/02/2019 Document Reviewed: 05/13/2017 [employer] Patient Education 2020 [employer]. 10/26/2021 09:44:44 Urinary Frequency, Adult Urinary Frequency, [...] to keep your urine pale yellow. ?Take aixg-deu-fapgbau or prescription medicines. ?Eat foods that are high in fiber, such as beans, whole grains, and fresh fruits and vegetables. ?Limit foods that are high in fat and processed sugars, such as fried or sweet foods. General instructions Take evph-cau-jbabytp and prescription medicines only as told by [...] the muscles that help control urination. Take zrle-elz-zqozmvv and prescription medicines only as told by your health care provider. Contact a health care provider if your symptoms do not improve or get worse. This information is not intended to replace advice given to you by your health care provider. Make sure you discuss any questions you have with your health care provider. Document Released: 04/09/2010 Document Revised: 12/21/2018 Document Reviewed: 12/21/2018 [employer] Patient Education 2020 [employer]. 10/26/2021 09:44:41 Kidney Stones, Ivtk-wc-Inhy Kidney Stones Kidney stones are rock-like masses [...] Follow these instructions at home: Medicines Take jlyo-jhk-yntpwcs and prescription medicines only as told by [...] 11/29/2008 Document Revised: 10/30/2019 Document Reviewed: 10/30/2019 [employer] Patient Education 2019 [employer]. Follow Up Care 02/23/2021 14:09:11 With:KADE OLIVEROS, Milton Brewer, URL Address: [facility] [address], [place] [address]- When:10/26/2022 [facility] 11-30-2021 Evaluation note* Encounter Date Diagnosis Assessment Notes Treatment Notes Treatment Clinical Notes Apr, Diabetes mellitus wi th chronic kidney disease (ICD-10 - E11.22) He has lae-iutracc-fvnrz dent type 2 diabetes and currently takes [...] have advised him to adequately hydrate himself. [facility] Other Evaluation + Plan note Future Appointments Appointment Date:10/29/2022 08:45:00 AM Scheduled Provider:Milton BRAUN MD Location:[facility] Appointment Type:URO Office Visit [facility] evaluation + Plan note Future Appointments Appointment Date:09/14/2022 07:30:00 AM Scheduled Provider: Location:[facility] Appointment Type:Surgical PAT FT Appointment Date:10/07/2022 12:00:00 PM Scheduled Provider: Location:[facility] Appointment Type:Surgery FT Appointment Date:10/29/2022 08:45:00 AM Scheduled Provider:Milton BRAUN MD Location:[facility] Appointment Type:URO Office Visit [facility] evaluation + Plan note Future Appointments Appointment Date:11/18/2022 10:30:00 AM Scheduled Provider: Location:[facility] Appointment Type:Surgical PAT FT Appointment Date:12/02/2022 11:45:00 AM Scheduled Provider: Location:[facility] Appointment Type:Surgery FT [facility] evaluation + Plan note Future Appointments Appointment Date:06/12/2024 11:00:00 AM Scheduled Provider:Ni OLIVARES MD Location:[facility] Appointment Type:URO Office Visit Future Scheduled Tests Laboratory* Total Protein 24 Hour Urine 02/14/23 [facility] evaluation note* Diagnosis Onset Date Resolution Status Acute kidney injury superimp osed on chronic kidney disease acute Acute kidney insufficiency a cute CAD (coronary artery disease) acute CKD (chronic kidney disease) stage 3, GFR 30-59 ml/min acute Elevated PSA acute Hydronephrosis with ureteral calculus acute Hyperkalemia acute [id number] acute Left renal atrophy acute Metabolic acidosis acute Obstructive nephropathy acut e Preoperative cardiovascular examination acute Right ureteral stone acute 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 [facility] Work Phone: Hisplkn general Narrative - Reported* Type Description Date Medical History DIABETES MELLITUS Medical History CORONARY ARTERY DISEASE Medical History MORBID OSESITY Surgical History HERNEA LOWER RIGHT ABDOMINAL Surgical History HEART ATTACK WITH STENT PLACEME NT IN THE LAD Surgical History KIDNEY STENTS X 2 Surgical History PROSTRATE BIO PAD Surgical History KIDNEY STENTS X2 Surgical History KIDNEY STONE REMOVAL Hospitalization History SEE ABOVE [facility] Other Hisrxrp general Narrative - Reported* Type Description Date [...] KIDNEY STONE REMOVAL Hospitalization History SEE ABOVE [facility] Other Hispmbs general Narrative - Reported* Type Description Date [...] KIDNEY STONE REMOVAL Hospitalization History SEE ABOVE [facility] Other history general Narrative - Reported* Type [...] History KELSEA, HYPERKALEMIA, METAB OLIC ACIDOSIS 08/11/2022 [facility] Other Hospital course Narrative No data available for this section [facility] Hospital Discharge instructions Additional Instructions Follow-up with your Primary Complex Human Resources Manager in 4 weeks. Avoid NSAIDs for pain control. Call [facility] Scheduling on Tuesday at [phone] to arrange a follow up CT scan regarding lung nodule in 4 weeks. Maintain occlussive dressing to HD catheter removal site for 48 hours - return to the Emergency Room for oozing or drainage from catheter exit site, noticeable swelling or itching around neck, shortness of breath, [facility] Work Phone: Progress note No data available for this section [facility] Chief Complaint and Reason for Visit Chief Complaint ACUTE RENAL FAILURE Reason for Visit Acute kidney injury superimposed on chronic kidney disease Acute kidney insufficiency CAD (coronary artery disease) CKD (chronic kidney disease) stage 3, GFR 30-59 ml/min Elevated PSA Hydronephrosis with ureteral calculus Hyperkalemia [id number] Left renal atrophy Metabolic acidosis Obstructive nephropathy Preoperative cardiovascular examination Right ureteral stone Type 2 diabetes mellitus with diabetic chronic kidney disease Diabetes Chief Complaint n20.0 Chief Complaint n20.0 N40.1 Chief Complaint n20.0 N40.1 N20.0 Chief Complaint Unknown Chief Complaint Unknown RENAL 6 month f/u Reason for Visit Secondary hyperparat hyroidism CKD (chronic kidney disease) stage 3, GFR 30-59 ml/min [id number] Left renal atrophy Metabolic acidosis Type 2 [...] MD Other Provider Active Jen Tamayo , [facility] Other Provider Active Aaliyah Mitchell MD [...] CREATED AUTHOR AUTHOR'S ORGANIZ ATION 12/07/2022 [facility] DATE CREATED AUTHOR AUTHOR'S ORGANIZ ATION 07/05/2023 [facility] DATE CREATED AUTHOR AUTHOR'S ORGANIZ ATION 10/27/2023 [facility] DATE CREATED AUTHOR AUTHOR'S ORGANIZ ATION 12/21/2023 [facility] DATE CREATED AUTHOR AUTHOR'S ORGANIZ ATION 05/23/[address] [facility] Goals (unrecognized section and content) Goals may [...] BE BASED ON THE PRIMARY CLINICAL RECORDS. [facility] [employer] provides no warranty or guarantee of the accuracy or completeness of information in this document.
== END 2024-06-11 06:57 | disposition home or self-care (01) ==
LOC: US 06:57
PROVIDERS: PCP Family Medicine; Visit Provider Urology
DX: N20.0 Calculus of kidney (principal)
CPT/HCPCS: 76775

== ENCOUNTER 2024-09-12 10:54 | Outpatient (OUT) | payer MEDICARE, SELFPAY ==
--- NOTE | 2024-09-12 10:59 | CT_ITS ---
The [address] [address] Patient Name: GLADYS SMYTH MRN: [id number] date: 1940 Sex: M Assigned Patient Location: LAB Current Patient Location: LAB Accession/Order Number: [id number] Exam Date: 09/12/2024 12:26 Report Date: 09/12/2024 12:33 At the request of: TRAY ALFARO MD Procedure: CT abdomen pelvis w con CT ABDOMEN AND PELVIS WITH INTRAVENOUS CONTRAST: CLINICAL HISTORY: Appendicitis COMPARISON: CT abdomen and pelvis 09/27/2023 TECHNIQUE: Spiral images were obtained through the abdomen and pelvis following the administration of intravenous contrast. This CT exam was performed using one or more following dose reduction techniques: Automated exposure control, adjustment of the mA and/or kV according to patient size, or use of iterative reconstruction technique. FINDINGS: Lung Bases: [ ]mild fibrotic changes involving the lung bases. Organs:Splenic granulomas. Liver gallbladder portal vein pancreas and adrenal glands appear unremarkable. Atrophic left kidney. Cystic changes right kidney. Aorta appears normal in caliber.[ GI: Stomach is grossly unremarkable. Small bowel appears nondilated. The appendix appears fluid-filled without gross distention or significant inflammatory changes. Remaining colon appears unremarkable.[ Pelvis:[Urinary bladder is grossly unremarkable. Prostate gland is normal in size.] Peritoneum/Retroperitoneum:No free air or free fluid or lymphadenopathy.[ Abd wall/Bones:No acute findings. Osseous structures demonstrate degenerative change.[ CT/CT abdomen pelvis w con IMPRESSION: Interval improvement of the inflammatory changes in the region of the appendix. The appendix still appears to BE fluid filled without gross distention or significant inflammatory change. Mucocele cannot BE excluded. Impression dictated by: Ifeanyi Perez Jr., D.O.09/12/2024 12:33 PM Dictation Location: [employer]AST[facility]ITAL[facility] Electronically authenticated by: [id number] Y Date: 09/12/2024 12:33
--- OUTSIDE RECORDS SUMMARY | 2024-09-12 11:05 | XMS_ITS | CCD ---
Author Organization [facility] Care Team Providers Care Curriculum Facilitator Name Role Phone Jose Alfaro Primary Care Physician Alicia León Unavailable MD Jose Alfaro Primary Care Provider MD Hiral Interiano Admit Provider MD Hiral Interiano Attending Provider ALISHA Mckinleyher Other Provider Unavailable DO Lizzy Lin Other Provider [phone] MD Niharika Elias Other Provider MD Joel Larkin Other Provider MD Isidro Dow Other Provider MD Peter Manuel Other Provider ILA Borges Other Provider MD Peyton Barragan Other Provider MD [facility] Other Provider MD Skinny Kiser Other Provider Belkis [facility]- Jen Desir Other Provider [phone] MD Aaliyah Mitchell Other Provider MD Alicia León Other Provider MD Milton Braun Other Provider [phone] MD Ni Olivares Other Provider MD [...] Unavailable HOY ., DR FELIZ Admitting Unavailable BRAUN ., DR ROSE Consulting Unavailable BRAUN ., DR ROSE Attending Unavailable HOY ., DR FELIZ Primary Care Unavailable BRAUN ., DR ROSE Admitting Unavailable WEST, DR TYLER Coello Consulting Unavailable THADDEUS DAUGHERTY [...] Unavailable HOY ., DR FELIZ Admitting Unavailable BOUSE, DR TYLER Coello Consulting Unavailable BERNA, IRIS [...] NI Garcia Admitting Unavailable HOY ., DR FEILZ Consulting Unavailable COOK, DR NI Garcia Consulting Unavailable EBER, DR TESS Brewer Consulting Unavailable HOY ., DR FELIZ Primary Care Unavailable HOY ., DR FELIZ Attending Unavailable HOY ., DR FELIZ Admitting Unavailable HOY ., DR FELIZ Consulting Unavailable HOY ., DR FELIZ Primary Care Unavailable HOY ., DR FELIZ Admcrescencio Unavailable HOY ., DR FELIZ Attending Unavailable MD Jose Alfaro Primary Care Provider [phone] MD Ni Olivares Attending Provider [phone] MD Jose Alfaro Primary Care Provider [phone] NON STAFF Attending Provider Unavailable JENNIFER DRISCOLL Attending Unavailable JENNIFER DRISCOLL Attending Unavailable CookRidgeNi P Admitting Unavailable Hoy, Jose M Primary Care Unavailable CookNi P Attending Unavailable Hoy, Jose M Primary Care Unavailable Ni Olivares P Attending Unavailable CookRidgeNi P Admitting Unavailable Hoy, Jose M Primary Care Unavailable Ni Olivares P Attending Unavailable Marshall, Ni P Admitting Unavailable NON STAFF Attending Unavailable NON STAFF Admitting Unavailable Hoy, Jose M Primary Care Unavailable JENNIFER LEYVA Attending Unavailable ISRA GAYLE Attending Unavailable ISRA GAYLE Attending Unavailable Ni OLIVARES P Attending Unavailable Ni OLIVARES P Attending Unavailable Allergies Allergy Classification Reported Allergen(s) Allergy Type Date of Onset Reaction(s) Facility (15 sources) Ciprofloxacin; Translations: [ciprofloxacin] Drug Allergy 08-13-19 Eruption of skin (disorder) [facility] (14 sources) Penicillin; Translations: [penicillin] Drug Allergy Eruption of skin (disorder) [facility] Other (6 sources) Ciprofloxacin Drug Allergy Unknown [facility] Other (9 sources) Penicillins; Translations: [Penicillins] Allergy to substance 06-14-20 [facility] (1 source) Ciprofloxacin Drug Allergy 03-10-20 [facility] Repository (3 sources) levothyroxine; Translations: [levothyroxine] Drug Allergy Swelling of oral cavity structure (finding) [facility] (4 sources) liothyronine; Translations: [liothyronine] Drug Allergy Swelling of oral cavity structure (finding) [facility] (1 source) Ciprofloxacin Drug Allergy 06-14-20 [facility] Repository (1 source) No Known Medication Allergies; Translations: [No Known Medication Allergies] Propensity to adverse reactions (disorder) [facility] Repository Medications Current Medications Medication Drug Class(es) Dates Sig (Normalized) Sig (Original) acetaminophen 325 mg / HYDROcodone bitartrate 5 mg oral tablet (1 source) Opioid Agonist Start: 10-07-2022 End: 10-09-2022 acetaminophen-hyd rocodone 325 mg-5 mg oral tablet 1 tab(s), Oral, q4hr Pain for 2 day(s), 7 tab(s), Refill(s) 0, [id number], 175, cm, 09/15/22 5:20:00 EDT, Height/Length Dosing, 114, kg, 09/15/22 5:20:00 EDT, Weight Dosing Start Date: 10/07/22 Stop Date: 10/09/22 Status: Ordered [id number] 200 actuat albuterol 0.09 mg/actuat metered dose inhaler (14 sources) beta2-Adrenergic Agonist Start: 12-20-2023 take 1 [...] hrs Active amLODIPine 10 mg oral tablet (19 sources) Dihydropyridine Calcium Channel [place] Start: 02-23-2021 take 5 mg by mouth once daily amLODIPine 10 mg Tab 5 mg = 0.5 tab(s), Oral, Daily, Refills(s) 0, High blood pressure Start Date: 02/23/21 Status: Ordered Start: 06-15-2019 End: 12-20-2023 take 1 tablet by mouth once daily amLODIPine 10 mg Tab 10 mg = 1 tab(s), Oral, Daily, Refills(s) 0, High blood pressure Start Date: 02/23/21 Status: Ordered aspirin 81 mg oral tablet (17 sources) Platelet Aggregation Inhibitor, Nonsteroidal Anti-inflammatory Drug Start: 04-10-2019 take 81 mg by mouth once daily aspirin 81 mg, Oral, Daily, Prophylaxis Start Date: 11/18/22 Status: Ordered take 1 tablet by delmer th every twenty-four hours Aspirin 81 81 MG 1 tablet Orally Once a day Active take 1 tablet by mouth once andrew y Aspirin 81 81 MG 1 tablet Orally Once a day Active atorvastatin 80 mg oral tablet (20 sources) HMG-CoA Reductase Inhibitor Start: 06-15-2019 End: 12-20-2023 take 40 mg by mouth at bedtime Atorvastatin Discontinued 40 MG PO Bedtime June 15, 2019 1:00am December 20, 2023 11:50am Start: 04-10-2019 take 80 mg by mouth once daily Atorvastatin Active 80 MG PO Daily December 20, 2023 12:00am cholecalciferol 0.125 mg oral capsule (14 sources) [...] Ordered take 1 capsule by mo [facility] every twenty-four hours Vitamin D3 125 [...] # 2 cap(s), Refills(s) 0, Pharmacy: [facility] #[id number], 177, cm, 11/18/22 13:54:00 EDT, Height/Length Dosing, 114.7, kg, 11/18/22 13:54:00 EDT, W... Start Date: 12/07/22 Status: Ordered Start: 07-05-2019 End: 08-15-2022 take 100 mg by mouth twice daily Doxycycline Hyclate Discontinued 100 MG PO Twice daily 14 7 July 05, 2019 1:00am August 15, 2022 [...] Oral, Daily Start Date: 04/10/19 Status: Ordered Utpv-Mrdia-Gda-D3-Hyal-Wiley B or (1 source) Start: 12-20-2023 take 1 tablet by mouth twice daily Xwlb-Gikyw-Lyo-D3-Hyal-Wiley Bor Active 1 TAB PO Twice daily December 20, 2023 12:00am glucosamine sulfate 500 mg oral capsule (7 sources) Start: 04-10-2019 take 1 capsule by mouth twice daily glucosamine 500 mg Cap 500 mg = 1 cap(s), Oral, BID, Arthritis Start Date: 04/10/19 Status: Ordered Start: 04-10-2019 take 1 capsule by mo [facility] once daily glucosamine 500 mg Cap 500 [...] mononitrate 120 mg extended release oral tablet (12 sources) Nitrate Vasodilator Start: 12-20-2023 take 120 [...] day Active ketoconazole 20 mg/ml topical cream (10 sources) Azole Antifungal Start: 12-20-2023 Ketoconazole Active 1 APPLIC TOPICAL Twice daily December 20, 2023 12:00am Start: 11-19-2022 ketoconazole T opical, BID, Refills(s) 0 Start Date: 11/19/22 Status: Ordered Ketoconazole 2 % 1 application Externally Twice a day Active Ketoconazole 2 % 1 application Externally Twice a day Active levothyroxine sodium 0.05 mg oral tablet (14 sources) l-Thyroxine Start: 12-20-2023 take 50 ug [...] Active liothyronine sodium 0.005 mg oral tablet (7 sources) l-Triiodothyronine Start: 12-20-2023 take 5 ug [...] day Active lisinopril 20 mg oral tablet (20 sources) Angiotensin Converting Enzyme Inhibitor Start: 12-20-2023 take 20 mg by mouth once daily Lisinopril Active 20 MG PO Daily December 20, 2023 12:00am Start: 02-23-2021 take 2 tablets by mo [facility] once daily lisinopril 10 mg Tab 20 [...] a day for 90 day(s) Active Magnesium (5 sources) Start: 11-19-2022 take 1 tablet by delmer once daily Magnesium Magnesium, one tab, Oral, [...] succinate 50 mg extended release oral tablet (19 sources) beta-Adrenergic [place] Start: 03-24-2020 take 1 [...] 2019 1:00am nitroglycerin 0.4 mg sublingual tablet (17 sources) Nitrate Vasodilator Start: 12-20-2023 Nitroglyce rin [...] Sublingual Active pioglitazone 15 mg oral tablet (8 sources) Peroxisome Proliferator Receptor alpha Agonist, Peroxisome Proliferator Receptor gamma Agonist, Thiazolidinedione Start: 09-14-2022 take 15 mg by mouth once daily Pioglitazone Active 15 MG PO Daily December 20, 2023 12:00am 12 hr ranolazine 500 mg extended release oral tablet (6 sources) Anti-anginal Start: 12-20-2023 take 500 mg [...] activity, # 30 tab(s), Refills(s) 2, Pharmacy: [id number], 174, cm, 08/18/20 12:16:00 EST, [...] 60 actuat tiotropium 0.0025 mg/actuat inhalation spray (13 sources) Anticholinergic Start: 12-20-2023 take 1 puff(s) by inhalation once daily Tiotropium Haskell (Spiriva Respimat) 2.5 mcg/actuation mist Active 2 [...] Active triamcinolone acetonide 5 mg/ml topical cream (6 sources) Corticosteroid Start: 12-20-2023 Triamcinolone Acetonide Active [...] Orally Active Vitamin B Complex oral capsule (7 sources) Start: 03-24-2020 take 1 capsule by mouth once daily Vitamin B Complex oral capsule 1 cap(s), Oral, Daily, Prophylaxis Start Date: 03/24/20 Status: Ordered Start: 03-24-2020 take 1 capsule by mouth once d aily Vitamin B Complex oral capsule 1 cap(s), Oral, Daily Start Date: 03/24/20 Status: Ordered Vitamin D3 (7 sources) Start: 08-18-2020 take 50 ug by [...] Discontinued 10 MG PO Three times daily 14 June 18, 2019 1:09pm December 20, 2023 11:59am for bladder spasms metFORMIN hydrochloride 1000 mg oral tablet (6 sources) Biguanide Start: 06-15-2019 End: 06-18-2019 take 1000 mg by mouth twice daily Metformin Discontinued 1000 MG PO Twice daily June 15, 2019 1:00am June 18, 2019 1:11pm SITagliptin 100 mg oral tablet (20 sources) Dipeptidyl Peptidase 4 Inhibitor Start: 06-18-2019 End: 12-20-2023 take 50 mg by mouth once daily Sitagliptin Phosphate Discontinued 50 MG PO Daily 0 June 18, 2019 1:10pm December 20, 2023 12:02pm Start: 04-10-2019 End: 12-20-2023 take 100 mg by mouth once daily Sitagliptin Phosphate Discontinued 100 MG PO Daily December 20, 2023 11:52am December 20, 2023 12:02pm SITagliptin Phos phate 50 MG as directed Orally Active ticagrelor 90 mg oral tablet (6 sources) Start: 06-15-2019 End: 07-05-2019 take 90 mg by mouth twice daily Ticagrelor Discontinued 90 MG PO Twice daily June 15, 2019 1:00am July 05, 2019 10:12am Problems Active Problems Problem Classification Problem Date Documented Date Episodic/Chronic Abdominal pain (7 sources) Flank pain 02-23-2021 Episodic Acute and unspecified renal failure (6 sources) Renal failure syndrome; Translations: [Unspecified kidney failure] 08-11-2022 Chronic Acute and unspecified renal failure (20 sources) Acute renal failure syndrome; Translations: [Injury of kidney] Onset: 3 08-18-2020 Episodic Acute myocardial infarction (7 sources) Myocardial infarction 04-10-2019 Chronic Calculus of urinary tract (20 sources) Kidney stone; Translations: [Calculus of kidney] Onset: 1 Resolved: 2 Episodic Cancer of prostate (10 sources) Malignant tumor of prostate; Translations: [Malignant neoplasm of prostate] Onset: 3 07-18-2019 Chronic Chronic kidney disease (20 sources) Chronic kidney disease; Translations: [Chronic kidney disease, unspecified] 08-11-2022 Chronic Chronic kidney disease (13 sources) Chronic kidney disease; Translations: [Chronic kidney disease, stage III (moderate)] Onset: 1 Resolved: 2 Chronic obstructive pulmonary disease and bronchiectasis (9 sources) Chronic obstructive lung disease; Translations: [Chronic [...] Resolved: 2 Chronic Diabetes mellitus without complication (20 sources) Type 2 diabetes mellitus; Translations: [Diabetes mellitus] 04-10-2019 Chronic Diabetes mellitus without complication (1 source) Other abnormal glucose; Translations: [OTHER ABNORMAL GLUCOSE] Onset: 3 Episodic Disorders of lipid metabolism (15 sources) Hyperlipidemia; Translations: [Hyperlipidemia, unspecified] Onset: 3 04-10-2019 Chronic Essential hypertension (20 sources) Hypertensive disorder; Translations: [Essential (primary) hypertension] [...] of kidney (terminal)] 06-15-2019 Chronic Noninfectious gastroenteritis (7 sources) Postprandial diarrhea 04-17-2019 Episodic Other and unspecified benign neoplasm (7 sources) Hyperplastic polyp of large intestine 04-10-2019 [...] Episodic Other diseases of kidney and ureters (14 sources) Hydronephrosis; Translations: [Unspecified hydronephrosis] 08-08-2019 Episodic Other diseases of kidney and ureters (7 sources) Hydronephrosis due to ureteral obstruction 07-18-2019 [...] and ureter] 08-15-2022 Episodic Other gastrointestinal disorders (7 sources) Occult blood in stools 04-17-2019 Episodic Other lower respiratory disease (6 sources) Nodule of lung; Translations: [Solitary pulmonary nodule] 08-15-2022 Episodic Other lower respiratory disease (1 source) Other forms of dyspnea; Translations: [OTHER FORMS OF DYSPNEA] Onset: 3 Episodic Other male genital disorders (10 sources) Male erectile dysfunction, unspecified; Translations: [Erectile [...] Chronic Other nutritional; endocrine; and metabolic disorders (5 sources) H/O: hypothyroidism 09-14-2022 Episodic Other screening for suspected conditions (not mental disorders or infectious disease) (20 sources) Raised prostate specific antigen; Translations: [Elevated prostate specific antigen [PSA]] Onset: 3 06-21-2019 Episodic Rheumatoid arthritis and related disease (7 sources) Rheumatoid arthritis 04-10-2019 Chronic Screening and history of mental health and substance abuse codes (7 sources) Ex-smoker; Translations: [Personal history of nicotine dependence] Onset: 3 Episodic Thyroid disorders (1 source) Hypothyroidism, unspecified; Translations: [HYPOTHYROIDISM UNSPECIFIED] Onset: 3 Chronic Unclassified (7 sources) Drug therapy finding 06-21-2019 Unclassified (4 [...] Classification Problem Date Documented Da te Episodic/Chronic Malaise and fatigue (1 source) Other fatigue; Translations: [OTHER FATIGUE] Onset: 08-25-2022 Episodic Other aftercare (1 source) retirement (current) use of aspirin; Translations: [INTERMEDIATE CURRENT USE OF ASPIRIN] Onset: 08-13-2022 Episodic Other aftercare (1 source) Other shelter (current) drug therapy; Translations: [OTH INTERMEDIATE CURRENT [...] Test Name Value Interpretation Reference Range Facility Ambulatory Visit Summaryon 1 08-13-2023 Ambulatory Visit Summary Ambulatory Visit Summary VICTORINO SMYTH :1940 Visit Date:06/12/2024 Ambulatory Visit Instructions Your Diagnosis Prostate cancer Kidney stone BPH with urinary obstruction Tests Performed US Renal -- Results Pending -- Please visit your patient portal for your results or contact your primary care physician. Your Care Team Attending Physician - Ni OLIVARES MD Primary Care Physician - Jose Alfaro MD This Is Your Medications List [...] coronary artery or branch, TRIGGER FINGER RELEASE. Discharge Vitals Heart Rate (Peripheral) 62 Blood Pressure 145/70 Height 175 cm Height 69 in Weight 125 kg Weight 275.578 lb BMI 40.82 What to do next Scheduled Follow-Up Appointments Tuesday 11:15 AM EDT With: Ni OLIVARES MD Where: [facility] [place] [address]- You Need to Schedule the Following Appointments Follow Up with MARSHALL OLIVEROS, BHUPINDER Merritt When: Where: [address] [facility] [address] [place] [address]- Medications What How Much When Instructions [...] Mouth Every day Contact prescribing physician if q (more content not included)... Normal [facility] Reminderson 06-12-2024 Reminders Reminders From: Shira Mauricio To: JACOB Olivares; Sent: 06/12/2024 11:57:51 EST Show up: 11/10/2024 12:57:00 EDT Subject: sched 6 mo VALENTINA Due Date/Time: 12/11/2024 12:57:00 EDT Reminder Message Please Remember to:_Please call pt to schedule 6 mo VALENTINA. He will also need PSA for his 6 mo appt. Both ordered today. PATIENT RELATED REMINDER:_ ( ) Call Patient ( ) Ask Patient to ( ) Call Relative ( ) Schedule Patient ( ) Follow up on Results ( ) Other: PROVIDER RELATED REMINDER:_ ( ) Engineering Supervisor ( ) Call Pharmacy ( ) Call Lab ( ) Other: Special Instructions:_ Comments:_ Normal [facility] Urology Office/Clinic Noteon 06-12-2024 Urology Office/Clinic Note Urology Office/Clinic Note Chief Complaint 1 year follow up HPI Staff 1 year follow up w/VALENTINA & PSA Previous DX: acute kidney failure, BPH w/ urinary obstruction, elevated PSA, ED, flank pain, hydronephrosis, kidney stone, prostate cancer, ureteral stone, urinary retention. S/P cysto/stent removal done on 04/15/20, cysto/bilateral dilation ureteral/stent done on 03/11/20, TURP done on 08/01/19, biopsy of prostate done on 07/04/19, cysto/RG/laser done on 06/27/19. Previous PSA 4.730 06/28/23, Current PSA 6.2 & 16% 03/29/24 IPSS score: 8 Dysuria: no Incomplete bladder emptying: no Hematuria: no Frequency: a couple times a day Urgency: occasionally Nocturia: 2x Stream: steady Leaking: no Post void dripping: yes Wearing pads/ Depends: no Urge incontinence: occasionally Stress incontinence: no Incontinence without Sensory Awareness: no Abdominal pain: no Flank pain: left sided pain since US Sexual complaints: _ History of Present Illness Tests reviewed: UA, VALENTINA, PSA I have reviewed the previous health record information and history for this patient from Dr. Olivares. I have reviewed and verified the staff HPI to be accurate for this encounter. Review of Systems PHQ Score Initial Depression Screen Score: 0 SCORE ROS - Provider Constitutional: denies weight loss, denies hot flashes. Eyes: denies eye problems. Gastrointestinal: denies nausea, denies vomiting. Cardiovascular: denies chest pain or angina. Integumentary: no dryness Musculoskeletal: denies musculoskeletal symptoms. ENMT: denies otolaryngeal symptoms. Respiratory: no shortness of breath. Heme/Lymph: denies easy bleeding tendency, denies easy bruising tendency. Psychiatric: no confusion, no anxiety. Genitourinary: See HPI. Physical Exam Vitals & Measurements HR: 62(Peripheral) BP: 145/70 HT: 69 in HT: 175 cm WT: 125 kg WT: 275.578 lb BMI: 40.82 General Appearance: alert, no distress, well nourished, well developed male. Assessment/Plan 1. Prostate cancer (C61: Malignant neoplasm of prostate) ACTIVE SURVEILLANCE PSA (PCP has been monitoring): 11/06/22 - 5.8 03/24/23 - 4.6 & 13.5% 06/28/23 - 4.7 03/28/24 - 6.2 & 16% TRUS/bx 07/05/[address] Carlisle. Path Holden 6 (3+3) x2 involving 15%. Pt states active surveillance was decided on. [1] PSA only slightly increased from 10/2022. Will cont to monitor but more closely given slight rise. 2. Kidney stone (N20.0: Calculus of kidney) S/p R ESWL 10/07/22. S/p cysto, R stent removal, basket extraction, replacement of R stent placement 12/02/22. Stone analysis - uric acid. Metabolic workup 06/25/23 - serum uric acid slightly elevated 8.2 [2] volume isn't bad, he produced around 2L, minimum goal is 2.5L but ideally 3L would be better [3]. also needs to increase citrate level - add 2oz lemon juice to water daily [4]. VALENTINA 06/11/24 - Multiple R renal stones up to 6 mm. No L renal stones. L cortex thinned 0.8 cm. Reviewed imaging with pt, R sided stones post ESWL. 6 mm right kidney Discussed cont to monitor. Pt agreeable. Knows there is a risk of stone passage. Follow up 6 mos with PSA and VALENTINA or sooner if needed. Pt understands and agrees with plan. -High fluid intake, diet mods 3. BPH with urinary obstruction (N40.1: Benign prostatic hyperplasia with lower urinary tract symptoms) S/p TURP 07/2019. UA neg. IPSS 8 (7). Not taking any prostate meds. Viewed UA, ordered renal ultrasound, ordered PSA Follow-up With When Contact Information MARSHALL OLIVEROS, Ni Garcia, [address] [place] [address] [address]- Additional Instructions: 6 mos with PSA and VALENTINA Patient Education Dietary Guidelines to Help Prevent Kidney Stones I, Shira Mauricio, personally scribed for Dr. Olivares on 06/12/2024 11:54:53. . Documentation recorded by the scribe, Shira Mauricio, accurately reflects the services(s) I performed and decisions made by me. Authenticated by Dr. Olivares on 06/12/2024 13:27:39. Portions of this record may have been created with voice recognition artificial intelligence software, specifically [employer], [employer] and or [employer]. Substitutions may have occurred due to the inherent limitations of voice recognition and artificial intelligence software. Problem List/Past Medical History Ongoing Acute kidney failure Anticoagulated 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 Coronary artery disease DM (diabetes mellitus), type 2 Elevated PSA Erectile dysfunction Flank pain Hydronephrosis Hydronephrosis with ureteral calculus Hyperlipidemia Hyperplastic colon polyp Hypertension Kidney stone Myocardial infarct Occult blood in stools Postprandial diarrhea Prostate cancer Rheumatoid arthritis Ureteral stone Urinary retention Historical No qualifying data Procedure/Surgical History Cystoscopic removal of u (more content not included)... Normal [facility] Comment on above: Result Comment: Elec tronically Signed By: Ni OLIVARES MD\.br\Date and Time Signed: 06/12/24 13:29 EST\.br\Electronically Co-Signed By: Mauricio, Shira P\.br\Date and Time Co-Signed: 06/12/24 11:55 EST Office Visiton 05-21-2024 Follow-up visit [id number] Ruben Smyth M 1940 M Date Provider Department Center 05/21/2024 JENNIFER SMITH [facility] Family History Problem Relation Age of Onset No Known Problems Mother No Known Problems Father Family Status - Relation Status Age at Mother Father Level of Service:[id number] [place] OFFICE/OUTPATIENT ESTABLISHED LOW MDM 20 MIN Normal [facility] Erythrocyte distribution wid th Auto (RBC) [Ratio]on 12-14-2023 Erythrocyte distribution width (RBC) [Ratio] 12.9 % 11.0-15.0 [facility] Estimated glomerular filtrat ion rate (GFR) non- Americanon 12-14-2023 GFR/1.73 sq M.predicted among non-blacks MDRD (S/P/Bld) [Vol rate/Area] 35 mL/min/{1.73_m2} >=60 [facility] Hematocrit Auto (Bld) [Volum e fraction]on 12-14-2023 Hematocrit (Bld) [Volume fraction] 41.9 % 42.0-54.0 [facility] Hemoglobin [Mass/volume] in Bloodon 12-14-2023 Hemoglobin (Bld) [Mass/Vol] 14.0 g/dL 14.0-18.0 [facility] Iron binding capacity [Mass/ volume] in Serum or Plasmaon 12-14-2023 Iron binding capacity [Mass/Vol] 279.0 ug/dL 250.0-450. 0 [facility] Iron saturation [Mass Fracti on] in Serum or Plasmaon 12-14-2023 Iron saturation [Mass fraction] 36.2 % [facility] Laboratory - Chemistry and C hemistry - challengeon 12-14-2023 Albumin [Mass/Vol] 3.3 g/dL 3.4-5.0 [facility] Calcium [Mass/Vol] 8.5 mg/dL 8.5-10.1 [facility] Chloride [Moles/Vol] 106 mmol/L 98-107 [facility] CO2 [Moles/Vol] 24.0 mmol/L 21.0-32.0 [facility] Creatinine [Mass/Vol] 1.84 mg/dL 0.70-1.30 [facility] Ferritin [Mass/Vol] 111.0 ng/mL 26.0-388.0 [facility] GFR/1.73 sq M.predicted MDRD (S/P/Bld) [Vol rate/Area] 43 mL/min/{1.73_m2} >=60 [facility] Glucose [Mass/Vol] 155 mg/dL 74-106 [facility] Iron [Mass/Vol] 101.0 ug/dL 65.0-175.0 [facility] Magnesium [Mass/Vol] 1.7 mg/dL 1.8-2.4 [facility] Potassium [Moles/Vol] 4.6 mmol/L 3.5-5.1 [facility] Sodium [Moles/Vol] 140 mmol/L 136-145 [facility] Urate [Mass/Vol] 6.4 mg/dL 3.5-7.2 [facility] Urea nitrogen [Mass/Vol] 21.0 mg/dL 7.0-18.0 [facility] Urea nitrogen/Creatinine [Mass ratio] 11.4 mg/mg [facility] Bilirubin Ql (U) Negative NEGATIVE [facility] Glucose (U) [Mass/Vol] Negative NEGATIVE [facility] Ketones Ql (U) Negative NEGATIVE [facility] pH (U) 5.5 [pH] 5.0-9.0 [facility] Specific gravity (U) [Rel density] 1.015 1.005-1.02 5 [facility] Urobilinogen Qn (U) 0.2 {Wil'U}/dL 0.2-1.0 [facility] Laboratory - Specimen inform ationon 12-14-2023 Appearance (U) CLEAR CLEAR [facility] Color (U) YELLOW YELLOW [facility] Laboratory - Urinalysison Leukocyte esterase Test strip Ql (U) Negative NEGATIVE [facility] Mucus Ql (Urine sed) NONE SEEN NONE SEEN [facility] Nitrite Ql (U) Negative NEGATIVE [facility] Protein (U) [Mass/Vol] 10.9 mg/dL <=11.9 [facility] Protein Ql (U) Negative NEG/TRACE [facility] Leukocytes [#/volume] correc ike for nucleated erythrocytes in Blood by Automated counon 12-14-2023 WBC corrected for nucl RBC Auto (Bld) [#/Vol] 6.2 10 3/uL 4.0-11.0 [facility] MCH Auto (RBC) [Entitic mass ]on 12-14-2023 MCH (RBC) [Entitic mass] 33.7 pg 25.9-34.0 [facility] MCHC Auto (RBC) [Mass/Vol]on 12-14-2023 MCHC (RBC) [Mass/Vol] 33.4 g/dL 29.9-35.2 [facility] MCV Auto (RBC) [Entitic vol] on 12-14-2023 MCV (RBC) [Entitic vol] 101.0 fL 80.0-94.0 [facility] No Panel Informationon 12-13 25-Hydroxy Vitamin D Total 66.1 ng/mL [facility] Comment on above: <20 ng/mL Vit D defi cient20-<30 ng/mL Vit D [id number] ng/mL Vit D sufficient>100 ng/mL Potential Toxicity Parathyroid Hormone (Intact) 50 pg/mL 15-65 [facility] Comment on above: Performed at: - [facility] [address] [id number] Director: Lee Bob PhD, Phone: [phone] Phosphorus Level 3.5 mg/dL 2.6-4.7 [facility] Urine Bacteria NONE SEEN #/HPF NONE SEEN [facility] Urine Occult Blood Negative NEGATIVE [facility] Urine Other Casts NONE SEEN #/LPF NONE SEEN [facility] Urine Other Crystals None Seen #/HPF None Seen [facility] Urine Random Creatinine 71.05 mg/dL 20.00-300. 00 [facility] Urine RBC NONE SEEN #/HPF 0-2 [facility] Urine Squamous Epithelial Cells RARE #/LPF NONE/RARE [facility] Urine WBC NONE SEEN #/HPF NONE SEEN [facility] Platelet mean volume Auto (B ld) [Entitic vol]on 12-14-2023 Platelet mean volume (Bld) [Entitic vol] 11.2 fL 9.5-13.5 [facility] Platelets Auto (Bld) [#/Vol] on 12-14-2023 Platelets (Bld) [#/Vol] 168 10 3/uL 150-450 [facility] RBC Auto (Bld) [#/Vol]on RBC (Bld) [#/Vol] 4.15 10 6/uL 4.70-6.10 [facility] Serum or plasma anion gap de terminationon 12-14-2023 Anion gap [Moles/Vol] 14.6 mmol/L [facility] Urine protein/creatinine rat ioon 12-14-2023 Protein/Creatinine (U) [Ratio] 0.15 [facility] Office Visiton 11-01-2023 Follow-up visit [id number] Ruben Smyth 1940 M Date Provider Department Center 11/01/2023 ISRA HICKS Family History Problem Relation Age of Onset No Known Problems Mother No Known Problems Father Family Status - Relation Status Age at Mother Father Level of Service:65988 [place] OFFICE/OUTPATIENT ESTABLISHED MOD MDM 30 MIN Reason for Visit and Comments: Coronary Artery Disease [187] Hypertension [780130] Normal [facility] Daniel 10-18-2023 L Specimen: [id number] Received: 10/19/23 Status: HIMANSHU Williamson Num: [id number] Spec Type: Surgical Subm Dr: NON STAFF Tissues: A Colon Biopsy (DESC POLYP AT 50 CM) Procedures: HE/2, Gross/Micro L4 Age/ Patient Sex Location Account Attending Physician Victorino Smyth 83/M LABELL [id number] NON STAFF SPEC NUM: [id number] RECD: 10/19/23 STATUS: HIMANSHU WILLIAMSON NUM: [id number] HYUN: 10/18/[address]: EMELY STAFF ENTERED: 10/19/[address]: Charito,Lab SPEC TYPE: Surgical DEPT: MIO JOSEPH ORDERED: HE/2, Gross/Micro L4 ORDERED: HE/2, Gross/Micro L4 Pathological Diagnosis Polyp, descending colon, biopsy: Hyperplastic polyp. Gross Description Received in formalin, labeled with the patient's name and descending colon polyp at 50 cm are 2 santiago mucosal tissue fragments measuring 0.5 x 0.3 x 0.1 cm and 0.2 x 0.2 x 0.1 cm, entirely submitted in A1. Clinical history: Sigmoid diverticulosis, descending colon polyp at 50 cm CPT Codes 09440 Specimen: [id number] Received: 10/19/23 Status: HIMANSHU Williamson Num: [id number] Spec Type: Surgical Subm Dr: NON STAFF Tissues: A Colon Biopsy (DESC POLYP AT 50 CM) Procedures: HE/2, Gross/Micro L4 Patient: Victorino Smyth [id number] (Continued) Signed (signature on file) Ana Villegas MD 10/20/23 [address] [facility] 36on 09-06-2023 36 Blood pressure is lo oking better. Continue to hold amlodipine. Thanks! Normal [facility] 37on 08-23-2023 37 *Stop Amlodipine. *We will call you in 1 week to check in on your blood pressure readings. Normal [facility] Office Visiton 08-23-2023 Follow-up visit [id number] Ruben Smyth 1940 M Date Provider Department Center 08/23/2023 ISRA HICKS [facility] Family History Problem Relation Age of Onset No Known Problems Mother No Known Problems Father Family Status - Relation Status Age at Mother Father Level of Service:46230 [place] OFFICE/OUTPATIENT ESTABLISHED MOD [facility] 30 MIN Normal [facility] Patient Letter FTon 2023 Patient Letter [facility] (Inserted Image. Tonie ble to display) [address] [place] [address] July 07, 2023 VICTORINO SMYTH [id number] [place] [id number] : 1940 Dear Mr Smyth, Our office has been trying to contact you regarding your results. You kidney ultrasound shows tiny stones but no evidence of blockage/obstruction. This is good. Your PSA is up slightly from the fall (4.7 compared to 4.6) but down still from last spring (5.8). Overall no changes to plan as far as the Active Surveillance for your Prostate Cancer. The metabolic evaluation results (bloodwork/24 hr urine test) was done to see if there are things we can change to decrease your risk of kidney stones. It showed that your uric acid is a bit high, so I'd recommend limiting foods with uric acid (list attached). Your fluid volume wasn't bad - you produced around 2L, minimum goal is 2.5L but ideally 3L would be better. So work on adding about 15-30 oz fluids daily and you'll be right at goal. Lastly, you need to increase you citrate levels. You can do this by adding 2oz lemon juice to water daily or if you prefer, we can prescribe a supplement (if you want that option, please call office to request). We will see you as scheduled in May. Provider Signature: Piedad Romero PA-C Physician Senior Online Marketing Manager [facility]rology [address] [place] [address] Normal [facility] Lab Reportson 07-04-2023 Lab Reports [id number]#1.00TIFF Normal [facility] Lab Reports [id number]#1.00TIFF Normal [facility] Calcium [Mass/volume] in Ser um or PlasmaOrdered By: Ni Olivares on 07-02-2023 Calcium [Mass/Vol] 8.8 mg/dL Normal 8.6-10.3 [facility] Comment on above: Performed By: #### U THUY, CA, CREAT, BUN, PTH, LYTES #### [facility] [address] [id number] [place] Carbon dioxide, total [Moles /volume] in Serum or PlasmaOrdered By: Ni Olivares on 07-02-2023 CO2 [Moles/Vol] 24.0 mmol/L Normal 21.0-31.0 [facility] Comment on above: Performed By: #### U THUY, CA, CREAT, BUN, PTH, LYTES #### [facility] [address] [id number] [place] Chloride [Moles/volume] in S paty or PlasmaOrdered By: Ni Olivares on 07-02-2023 Chloride [Moles/Vol] 107 mmol/L Normal 98-107 [facility] Comment on above: Performed By: #### U THUY, CA, CREAT, BUN, PTH, LYTES #### [facility] [address] Creatinineon 07-02-2023 GFR/1.73 sq M.predicted MDRD (S/P/Bld) [Vol rate/Area] 32.151 mL/min/{1.73_m2} Normal [facility] Comment on above: Performed By: #### U THUY, CA, CREAT, BUN, PTH, LYTES #### [address] Creatinine [Mass/volume] in Serum or PlasmaOrdered By: Ni Olivares on 07-02-2023 Creatinine [Mass/Vol] 2.05 mg/dL High 0.70-1.30 [facility] Comment on above: Performed By: #### U THUY, CA, CREAT, BUN, PTH, LYTES #### [address] No Panel InformationOrdered By: Ni Olivares on 07-02-2023 Estimated GFR (CKD-EPI) 32.151 mL/Min [facility] Creatinine Clearance (Chem N/A [facility] Parathyrin.intact [Mass/volu me] in Serum or PlasmaOrdered By: Ni Olivares on 07-02-2023 Parathyrin.intact [Mass/Vol] 55.4 pg/mL [facility] Parathyroid Hormone Intacton 07-02-2023 Parathyroid Hormone Intact 55.4 pg/mL Normal [facility] Comment on above: Result Comment: PERF ORMED BY: [place] [address] PATHOLOGIST HOT SHOT DIANDRA LACY M.D. Performed By: #### U THUY, CA, CREAT, BUN, PTH, LYTES #### [address] Potassium [Moles/volume] in Serum or PlasmaOrdered By: Ni Olivares on 07-02-2023 Potassium [Moles/Vol] 5.0 mmol/L Normal 3.5-5.1 [facility] Comment on above: Performed By: #### U THUY, CA, CREAT, BUN, PTH, LYTES #### [address] Serum or plasma anion gap de terminationOrdered By: Ni Olivares on 07-02-2023 Anion gap [Moles/Vol] 12.0 mmol/L Normal 6.0-15.0 [facility] Comment on above: Performed By: #### U THUY, CA, CREAT, BUN, PTH, LYTES #### [address] Sodium [Moles/volume] in Ser um or PlasmaOrdered By: iN Olivares on 07-02-2023 Sodium [Moles/Vol] 138 mmol/L Normal 136-145 [facility] Comment on above: Performed By: #### U THUY, CA, CREAT, BUN, PTH, LYTES #### [address] Urate [Mass/volume] in Serum or PlasmaOrdered By: Ni Olivares on 07-02-2023 Urate [Mass/Vol] 8.2 mg/dL High 4.4-7.6 [facility] Comment on above: Result Comment: PERF ORMED BY: [place] [address] PATHOLOGIST HOT SHOT DIANDRA LACY M.D. Performed By: #### U THUY, CA, CREAT, BUN, PTH, LYTES #### [address] Urea nitrogen [Mass/volume] in Serum or PlasmaOrdered By: Ni Olivares on 07-02-2023 Urea nitrogen [Mass/Vol] 31 mg/dL High 7-25 [facility] Comment on above: Performed By: #### U THUY, CA, CREAT, BUN, PTH, LYTES #### [address] Lab Reportson 07-01-2023 Lab Reports [id number]#1.00TIFF Normal [facility] PSA Total (Not a Screen)on 0 06-28-2023 PSA Total (Not a Screen) 4.730 ng/mL High 0.000-4.00 0 [facility] Comment on above: Result Comment: Seri al tumor marker results determined by assays using different manufacturers or methods may not be comparable. [facility] aircraft armament mechanic and method: [employer] DXI, CHEMILUMINESCENT IMMUNOASSAY. PERFORMED BY: [place] [address] PATHOLOGIST HOT SHOT DIANDRA LACY M.D. Performed By: #### P SATOTAL #### [address] Prostate specific Ag [Mass/v olume] in Serum or PlasmaOrdered By: Ni Olivares on 06-28-2023 Prostate specific Ag [Mass/Vol] 4.730 ng/mL 0.000-4.00 0 [facility] Comment on above: Serial tumor marker results determined by assays using different manufacturers or methods may not be comparable.[facility] aircraft armament mechanic and method:JukelyEL DXI, CHEMILUMINESCENT IMMUNOASSAY. RAD - Ultrasound Reporton RAD - Ultrasound Report [id number]#1.00TIFF Normal [facility] US renal BIon 06-16-2023 US renal BI [facility] Main [place] [address] [place] [address] Ultrasound Report Signed Patient: Victorino Smyth MR#: [id number] : 1940 Acct:[id number] Age/Sex: 82 / M ADM Date: 06/16/23 Loc: Room: Type: [facility] Attending Dr: Ni Olivares MD Ordering Provider: [...] Rehan Fuentes M.D.06/16/2023 4:02 PM Dictation Location: [place] [address] Tech: Sue Chiu Transcribed By: [facility] 06/16/23 1602 Dictated By: Rehan Fuentes DO 06/16/23 1559 Signed By: 06/16/23 1602 Normal [facility] PSA, FREE AND TOTAL RATIOon 11-09-2022 % Free PSA 11.3 % Normal [facility] Comment on above: Result Comment: The table below lists the probability of prostate cancer for men with non-suspicious DEBORAH results and total PSA between 4 and 10 ng/mL, by patient age (Adelaide et al, FEDERICO 1998, 279:1542). % Free PSA 50-64 yr 65-75 yr 0.00-10.00% 56% 55% 10.01-15.00% 24% 35% 15.01-20.00% 17% 23% 20.01-25.00% 10% 20% >25.00% 5% 9% Please note: Adeladie et al did not make specific recommendations regarding the use of percent free PSA for any other population of men. Performed By: #### P SAFREE #### [facility] [address] [place] [address] Dr. Alicia Patel Prostate specific Ag [Mass/Vol] 4.6 ng/mL Critically high 0.0-4.0 [facility] Comment on above: Result Comment: Dwight JUAREZ methodology. . According to the [place] [employer], Serum PSA should decrease and [...] disease. Performed By: #### P SAFREE #### [facility] [address] [place] [address] Dr. Alicia Patel PSA, Free 0.52 ng/mL Normal N/A [facility] Comment on above: Result Comment: Dwight JUAREZ methodology. Performed By: #### P SAFREE #### [facility] [address] [place] [address] Dr. Alicia Patel INSULINon 11-08-2022 Insulin 18.5 uIU/mL Normal 2.6-24.9 [facility] Comment on above: Performed By: #### T SH, LIPID, T4, FT3, CMP #### [facility] [address] [place] [address] Dr. Alicia Patel CBC AUTO DIFFon 11-06-2022 BASO # 0.0 103/ul Normal 0.0-0.1 [facility] Comment on above: Performed By: #### C BC #### [facility] [address] [place] [address] Dr. Alicia Patel Basophils/100 WBC (Bld) 0.4 % Normal 0.2-2.0 [facility] Comment on above: Performed By: #### C BC #### [facility] [address] [place] [address] Dr. Alicia Patel EO # 0.2 103/ul Normal 0.0-0.7 [facility] Comment on above: Performed By: #### C BC #### [facility] [address] [place] [address] Dr. Alicia Patel Eosinophils/100 WBC (Bld) 4.6 % Normal 0.9-7.0 [facility] Comment on above: Performed By: #### C BC #### [facility] [address] [place] [address] Dr. Alicia Patel Erythrocyte distribution width (RBC) [Ratio] 13.2 % Normal 11.0-15.0 [facility] Comment on above: Performed By: #### C BC #### [facility] [address] [place] [address] Dr. Alicia Patel Hematocrit (Bld) [Volume fraction] 34.6 % Critically low 42.0-54.0 [facility] Comment on above: Performed By: #### C BC #### [facility] [address] [place] [address] Dr. Alicia Patel Hemoglobin (Bld) [Mass/Vol] 11.4 g/dL Critically low 14.0-18.0 [facility] Comment on above: Performed By: #### C BC #### [facility] [address] [place] [address] Dr. Alicia Patel IG # 0.03 10e3/ul Normal 0.00-0.03 [facility] Comment on above: Performed By: #### C BC #### [facility] [address] [place] [address] Dr. Alicia Patel IG % 0.6 % Critically high 0.0-0.5 [facility] Comment on above: Performed By: #### C BC #### [facility] [address] [place] [address] Dr. Alicia Patel LYMPH # 0.9 103/ul Critically low 1.2-3.8 [facility] Comment on above: Performed By: #### C BC #### [facility] [address] [place] [address] Dr. Alicia Patel Lymphocytes/100 WBC (Bld) 16.3 % Critically low 20.5-60.0 [facility] Comment on above: Performed By: #### C BC #### [facility] [address] [place] [address] Dr. Alicia Patel MANUAL DIFF REQ NO Normal [facility] Comment on above: Performed By: #### C BC #### [facility] [address] [place] [address] Dr. Alicia Patel MCH (RBC) [Entitic mass] 32.9 pg Normal 25.9-34.0 [facility] Comment on above: Performed By: #### C BC #### [facility] [address] [place] [address] Dr. Alicia aPtel MCHC (RBC) [Mass/Vol] 32.9 g/dL Normal 29.9-35.2 [facility] Comment on above: Performed By: #### C BC #### [facility] [address] [place] [address] Dr. Alicia Patel MCV (RBC) [Entitic vol] 99.7 fL Critically high 80.0-94.0 [facility] Comment on above: Performed By: #### C BC #### [facility] [address] [place] [address] Dr. Alicia Patel MONO # 0.6 103/ul Normal 0.3-0.8 [facility] Comment on above: Performed By: #### C BC #### [facility] [address] [place] [address] Dr. Alicia Patel Monocytes/100 WBC (Bld) 12.0 % Normal 1.7-12.0 [facility] Comment on above: Performed By: #### C BC #### [facility] [address] [place] [address] Dr. Alicia Patel NEUT # 3.5 103/ul Normal 1.4-6.5 [facility] Comment on above: Performed By: #### C BC #### [facility] [address] [place] [address] Dr. Alicia Patel Neutrophils/100 WBC (Bld) 66.1 % Normal 43.0-75.0 [facility] Comment on above: Performed By: #### C BC #### [facility] [address] [place] [address] Dr. Alicia Patel Platelet mean volume (Bld) [Entitic vol] 10.1 fL Normal 9.5-13.5 [facility] Comment on above: Performed By: #### C BC #### [facility] [address] [place] [address] Dr. Alicia Patel PLT 168 103/ul Normal 150-450 [facility] Comment on above: Performed By: #### C BC #### [facility] [address] [place] [address] Dr. Alicia Patel RBC 3.47 106/ul Critically low 4.70-6.10 [facility] Comment on above: Performed By: #### C BC #### [facility] [address] [place] [address] Dr. Alicia Patel WBC 5.2 103/ul Normal 4.0-11.0 [facility] Comment on above: Performed By: #### C BC #### [facility] [address] [place] [address] Dr. Alicia Patel FREE T3on 11-06-2022 FREE T3 2.78 pg/mlL Normal 2.18-3.98 [facility] Comment on above: Performed By: #### U RTPCR #### [facility] [address] [place] [address] Dr. Alicia Patel GLYCOHEMOGLOBIN A1Con 2022 ADA RECOMMENDATION SEE BELOW Normal [facility] Comment on above: Result Comment: ADA RECOMMENDED LIMIT 4.0 - 6.0 ADA THERAPEUTIC TARGET < 7.0 ACTION SUGGESTED > 7.0 Performed By: #### T SH, LIPID, T4, FT3, CMP #### [facility] [address] [place] [address] Dr. Alicia Patel Glucose [Mass/Vol] 120 mg/dL Normal [facility] Comment on above: Performed By: #### T SH, LIPID, T4, FT3, CMP #### [facility] [address] [place] [address] Dr. Alicia Patel HbA1c (Bld) [Mass fraction] 5.8 % Normal 4.5-6.2 [facility] Comment on above: Performed By: #### T SH, LIPID, T4, FT3, CMP #### [facility] [address] [place] [address] Dr. Alicia Patel LIPID PROFILEon 11-06-2022 CHOL-HDL RATIO NORM SEE BELOW Normal [facility] Comment on above: Result Comment: 3.3 - 4.4 LOW RISK 4.4 - 7.1 AVERAGE RISK 7.1 - 11.0 MODERATE RISK >11.0 HIGH RISK Performed By: #### U RTPCR #### [facility] [address] [place] [address] Dr. Alicia Patel Cholesterol [Mass/Vol] 107 mg/dL Normal <=200 [facility] Comment on above: Performed By: #### U RTPCR #### [facility] [address] [address] [address] Alicia Patel Cholesterol in HDL [Mass/Vol] 34 mg/dL Critically low 40-60 [facility] Comment on above: Performed By: #### U RTPCR #### [facility] [address] [address] [address] Alicia Patel Cholesterol in LDL [Mass/Vol] 58.8 mg/dL Normal [facility] Comment on above: Performed By: #### U RTPCR #### [facility] [address] [place] [address] Dr. Alicia Patel Cholesterol.total/Chol esterol in HDL [Mass ratio] 3.1 {ratio} Normal [facility] Comment on above: Performed By: #### U RTPCR #### [facility] [address] [place] [address] Dr. Alicia Patel HDL NORMAL > or = 60 mg/dl - LO W CARDIOVASCULAR RISK <40 mg/dl - HIGH CARDIOVASCULAR RISK Normal [facility] Comment on above: Performed By: #### U RTPCR #### [facility] [address] [place] [address] Dr. Alicia Patel LDL CALC NORMAL SEE BELOW Normal [facility] Comment on above: Result Comment: <100 mg/dl OPTIMAL 100 - 129 mg/dl NEAR OR ABOVE OPTIMAL 130 - 159 mg/dl BORDERLINE HIGH 160 - 189 mg/dl HIGH >190 mg/dl VERY HIGH Performed By: #### U RTPCR #### [facility] [address] [place] [address] Dr. Alicia Patel Triglyceride [Mass/Vol] 71 mg/dL Normal <=150 [facility] Comment on above: Performed By: #### U RTPCR #### [facility] [address] [place] [address] Dr. Alicia Patel VLDL CALC 14.2 mg/dL Normal [facility] Comment on above: Performed By: #### U RTPCR #### [facility] [address] [place] [address] Dr. Alicia Patel PROF 14(COMP METB)on 023 Albumin [Mass/Vol] 3.4 g/dL Normal 3.4-5.0 [facility] Comment on above: Performed By: #### T SH, LIPID, T4, FT3, CMP #### [facility] [address] [place] [address] Dr. Alicia Patel Albumin/Globulin [Mass ratio] 0.9 {ratio} Normal [facility] Comment on above: Performed By: #### T SH, LIPID, T4, FT3, CMP #### [facility] [address] [place] [address] Dr. Alicia Patel ALP [Catalytic activity/Vol] 75 U/L Normal 46-116 [facility] Comment on above: Performed By: #### T SH, LIPID, T4, FT3, CMP #### [facility] [address] [place] [address] Dr. Alicia Patel ALT [Catalytic activity/Vol] 31 U/L Normal 16-63 [facility] Comment on above: Performed By: #### T SH, LIPID, T4, FT3, CMP #### [facility] [address] [place] [address] Dr. Alicia Patel Anion gap [Moles/Vol] 14.4 mmol/L Normal [facility] Comment on above: Performed By: #### T SH, LIPID, T4, FT3, CMP #### [facility] [address] [place] [address] Dr. Alicia Patel AST [Catalytic activity/Vol] 23 U/L Normal 15-37 [facility] Comment on above: Performed By: #### T SH, LIPID, T4, FT3, CMP #### [facility] [address] [place] [address] Dr. Alicia Patel Bilirubin [Mass/Vol] 0.5 mg/dL Normal 0.2-1.0 [facility] Comment on above: Performed By: #### T SH, LIPID, T4, FT3, CMP #### [facility] [address] [place] [address] Dr. Alicia Patel Calcium [Mass/Vol] 8.8 mg/dL Normal 8.5-10.1 [facility] Comment on above: Performed By: #### T SH, LIPID, T4, FT3, CMP #### [facility] [address] [place] [address] Dr. Alicia Patel Chloride [Moles/Vol] 110 mmol/L Critically high 98-107 [facility] Comment on above: Performed By: #### T SH, LIPID, T4, FT3, CMP #### [facility] [address] [place] [address] Dr. Alicia Patel CO2 [Moles/Vol] 24.2 mmol/L Normal 21.0-32.0 [facility] Comment on above: Performed By: #### T SH, LIPID, T4, FT3, CMP #### [facility] [address] [place] [address] Dr. Alicia Patel Creatinine [Mass/Vol] 2.41 mg/dL Critically high 0.70-1.30 [facility] Comment on above: Performed By: #### T SH, LIPID, T4, FT3, CMP #### [facility] [address] [place] [address] Dr. Alicia Patel EGFR-AF MONEGASQUE 32 mL/min/1.73m2 Critically low >=60 [facility] Comment on above: Performed By: #### T SH, LIPID, T4, FT3, CMP #### [facility] [address] [place] [address] Dr. Alicia Patel EGFR-NON AF MONEGASQUE 26 mL/min/1.73m2 Critically low >=60 [facility] Comment on above: Performed By: #### T SH, LIPID, T4, FT3, CMP #### [facility] [address] [place] [address] Dr. Alicia Patel Globulin (S) [Mass/Vol] 3.6 g/dL Normal [facility] Comment on above: Performed By: #### T SH, LIPID, T4, FT3, CMP #### [facility] [address] [place] [address] Dr. Alicia Patel Glucose [Mass/Vol] 72 mg/dL Critically low 74-106 [facility] Comment on above: Performed By: #### T SH, LIPID, T4, FT3, CMP #### [facility] [address] [place] [address] Dr. Alicia Patel Potassium [Moles/Vol] 4.6 mmol/L Normal 3.5-5.1 [facility] Comment on above: Performed By: #### T SH, LIPID, T4, FT3, CMP #### [facility] [address] [place] [address] Dr. Alicia Patel Protein [Mass/Vol] 7.0 g/dL Normal 6.4-8.2 [facility] Comment on above: Performed By: #### T SH, LIPID, T4, FT3, CMP #### [facility] [address] [place] [address] Dr. Alicia Patel Sodium [Moles/Vol] 144 mmol/L Normal 136-145 [facility] Comment on above: Performed By: #### T SH, LIPID, T4, FT3, CMP #### [facility] [address] [place] [address] Dr. Alicia Patel Urea nitrogen [Mass/Vol] 32.0 mg/dL Critically high 7.0-18.0 [facility] Comment on above: Performed By: #### T SH, LIPID, T4, FT3, CMP #### [facility] [address] [place] [address] Dr. Alicia Patel Urea nitrogen/Creatinine [Mass ratio] 13.3 mg/mg Normal [facility] Comment on above: Performed By: #### T SH, LIPID, T4, FT3, CMP #### [facility] [address] [place] [address] Dr. Alicia Patel T4on 11-06-2022 T4 [Mass/Vol] 7.90 ug/dL Normal 4.50-12.10 [facility] Comment on above: Performed By: #### T SH, LIPID, T4, FT3, CMP #### [facility] [address] [place] [address] Dr. Alicia Patel TSHon 11-06-2022 TSH 0.263 uIU/mL Critically low 0.358-3.74 0 [facility] Comment on above: Performed By: #### T SH, LIPID, T4, FT3, CMP #### [facility] [address], [place] [address] Dr. Alicia Patel URIC ACID SERUMon 11-06-2022 Urate [Mass/Vol] 7.3 mg/dL Critically high 3.5-7.2 [facility] Comment on above: Performed By: #### T SH, LIPID, T4, FT3, CMP #### [facility] [address], [place] [address] Dr. Alicia Patel ECHOCARDIO M/2D COMPLETEon 0 10-26-2022 ECHOCARDIO M/2D COMPLETE Patient: VICTORINO SMYTH Exam Date: 10/26/2022 : 1940 Gender:M Ordering : IRIS CORONEL Admission #: [id number] Family : DR JOSE ALFARO . Order #: [id number] CLICK HERE TO VIEW EXAM ECHOCARDIOGRAM REPORT [...] Ksenia Glasgow M.D. on 10/28/2022 at 13:02 [facility] XR KUB 1 VIEWon 10-22-2022 XR KUB [...] by: TYLER MONSIVAIS Date: 2022-10-22 09:12 Normal [facility] US KIDNEYSon 10-18-2022 US [facility]: Kidney stone COMPARISON: Ultrasound kidneys 09/01/2022, [...] by: TESS FORD Date: 2022-10-18 07:04 Normal [facility] BNPon 10-14-2022 Natriuretic peptide B (Bld) [Mass/Vol] 300.0 pg/mL Normal <=1,800.0 [facility] Comment on above: Performed By: #### T SH, LIPID, T4, FT3, CMP #### [facility] [address] [place] [address] Dr. Alicia Patel CBC AUTO DIFFon 10-14-2022 BASO # 0.0 103/ul Normal 0.0-0.1 [facility] Comment on above: Performed By: #### T SH, LIPID, T4, FT3, CMP #### [facility] [address] [place] [address] Dr. Alicia Patel Basophils/100 WBC (Bld) 0.6 % Normal 0.2-2.0 [facility] Comment on above: Performed By: #### T SH, LIPID, T4, FT3, CMP #### [facility] [address] [place] [address] Dr. Alicia Patel EO # 0.2 103/ul Normal 0.0-0.7 [facility] Comment on above: Performed By: #### T SH, LIPID, T4, FT3, CMP #### [facility] [address] [place] [address] Dr. Alicia Patel Eosinophils/100 WBC (Bld) 4.6 % Normal 0.9-7.0 [facility] Comment on above: Performed By: #### T SH, LIPID, T4, FT3, CMP #### [facility] [address] [place] [address] Dr. Alicia Patel Erythrocyte distribution width (RBC) [Ratio] 14.2 % Normal 11.0-15.0 [facility] Comment on above: Performed By: #### T SH, LIPID, T4, FT3, CMP #### [facility] [address] [place] [address] Dr. Alicia Patel Hematocrit (Bld) [Volume fraction] 36.1 % Critically low 42.0-54.0 [facility] Comment on above: Performed By: #### T SH, LIPID, T4, FT3, CMP #### [facility] [address] [place] [address] Dr. Alicia Patel Hemoglobin (Bld) [Mass/Vol] 11.8 g/dL Critically low 14.0-18.0 [facility] Comment on above: Performed By: #### T SH, LIPID, T4, FT3, CMP #### [facility] [address] [place] [address] Dr. Alicia Patel IG # 0.03 10e3/ul Normal 0.00-0.03 [facility] Comment on above: Performed By: #### T SH, LIPID, T4, FT3, CMP #### [facility] [address] [place] [address] Dr. Alicia Patel IG % 0.6 % Critically high 0.0-0.5 [facility] Comment on above: Performed By: #### T SH, LIPID, T4, FT3, CMP #### [facility] [address] [place] [address] Dr. Alicia Patel LYMPH # 1.1 103/ul Critically low 1.2-3.8 [facility] Comment on above: Performed By: #### T SH, LIPID, T4, FT3, CMP #### [facility] [address] [place] [address] Dr. Alicia Patel Lymphocytes/100 WBC (Bld) 22.6 % Normal 20.5-60.0 [facility] Comment on above: Performed By: #### T SH, LIPID, T4, FT3, CMP #### [facility] [address] [place] [address] Dr. Alicia Patel MANUAL DIFF REQ NO Normal [facility] Comment on above: Performed By: #### T SH, LIPID, T4, FT3, CMP #### [facility] [address] [place] [address] Dr. Alicia Patel MCH (RBC) [Entitic mass] 33.2 pg Normal 25.9-34.0 [facility] Comment on above: Performed By: #### T SH, LIPID, T4, FT3, CMP #### [facility] [address] [place] [address] Dr. Alicia Patel MCHC (RBC) [Mass/Vol] 32.7 g/dL Normal 29.9-35.2 [facility] Comment on above: Performed By: #### T SH, LIPID, T4, FT3, CMP #### [facility] [address] [place] [address] Dr. Alicia Patel MCV (RBC) [Entitic vol] 101.7 fL Critically high 80.0-94.0 [facility] Comment on above: Performed By: #### T SH, LIPID, T4, FT3, CMP #### [facility] [address] [place] [address] Dr. Alicia Patel MONO # 0.7 103/ul Normal 0.3-0.8 [facility] Comment on above: Performed By: #### T SH, LIPID, T4, FT3, CMP #### [facility] [address] [place] [address] Dr. Alicia Patel Monocytes/100 WBC (Bld) 13.8 % Critically high 1.7-12.0 [facility] Comment on above: Performed By: #### T SH, LIPID, T4, FT3, CMP #### [facility] [address] [place] [address] Dr. Alicia Patel NEUT # 2.9 103/ul Normal 1.4-6.5 [facility] Comment on above: Performed By: #### T SH, LIPID, T4, FT3, CMP #### [facility] [address] [place] [address] Dr. Alicia Patel Neutrophils/100 WBC (Bld) 57.8 % Normal 43.0-75.0 [facility] Comment on above: Performed By: #### T SH, LIPID, T4, FT3, CMP #### [facility] [address] [place] [address] Dr. Alicia Patel Platelet mean volume (Bld) [Entitic vol] 10.1 fL Normal 9.5-13.5 [facility] Comment on above: Performed By: #### T SH, LIPID, T4, FT3, CMP #### [facility] [address] [place] [address] Dr. Alicia Patel PLT 160 103/ul Normal 150-450 [facility] Comment on above: Performed By: #### T SH, LIPID, T4, FT3, CMP #### [facility] [address] [place] [address] Dr. Alicia Patel RBC 3.55 106/ul Critically low 4.70-6.10 [facility] Comment on above: Performed By: #### T SH, LIPID, T4, FT3, CMP #### [facility] [address] [place] [address] Dr. Alicia Patel WBC 5.0 103/ul Normal 4.0-11.0 [facility] Comment on above: Performed By: #### T SH, LIPID, T4, FT3, CMP #### [facility] [address] [place] [address] Dr. Alicia Patel PROF CHEM 8 (BAS METB)on Anion gap [Moles/Vol] 13.9 mmol/L Normal [facility] Comment on above: Performed By: #### T SH, LIPID, T4, FT3, CMP #### [facility] [address] [place] [address] Dr. Alicia Patel Calcium [Mass/Vol] 8.3 mg/dL Critically low 8.5-10.1 [facility] Comment on above: Performed By: #### T SH, LIPID, T4, FT3, CMP #### [facility] [address] [place] [address] Dr. Alicia Patel Chloride [Moles/Vol] 108 mmol/L Critically high 98-107 [facility] Comment on above: Performed By: #### T SH, LIPID, T4, FT3, CMP #### [facility] [address] [place] [address] Dr. Alicia Patel CO2 [Moles/Vol] 23.5 mmol/L Normal 21.0-32.0 [facility] Comment on above: Performed By: #### T SH, LIPID, T4, FT3, CMP #### [facility] [address] [place] [address] Dr. Alicia Patel Creatinine [Mass/Vol] 2.41 mg/dL Critically high 0.70-1.30 [facility] Comment on above: Performed By: #### T SH, LIPID, T4, FT3, CMP #### [facility] [address] [place] [address] Dr. Alicia Patel EGFR-AF MONEGASQUE 32 mL/min/1.73m2 Critically low >=60 [facility] Comment on above: Performed By: #### T SH, LIPID, T4, FT3, CMP #### [facility] [address] [place] [address] Dr. Alicia Patel EGFR-NON AF MONEGASQUE 26 mL/min/1.73m2 Critically low >=60 [facility] Comment on above: Performed By: #### T SH, LIPID, T4, FT3, CMP #### [facility] [address] [place] [address] Dr. Alicia Patel Glucose [Mass/Vol] 74 mg/dL Normal 74-106 [facility] Comment on above: Performed By: #### T SH, LIPID, T4, FT3, CMP #### [facility] [address] [place] [address] Dr. Alicia Patel Potassium [Moles/Vol] 4.4 mmol/L Normal 3.5-5.1 [facility] Comment on above: Performed By: #### T SH, LIPID, T4, FT3, CMP #### [facility] [address] [place] [address] Dr. Alicia Patel Sodium [Moles/Vol] 141 mmol/L Normal 136-145 [facility] Comment on above: Performed By: #### T SH, LIPID, T4, FT3, CMP #### [facility] [address] [place] [address] Dr. Alicia Patel Urea nitrogen [Mass/Vol] 36.0 mg/dL Critically high 7.0-18.0 [facility] Comment on above: Performed By: #### T SH, LIPID, T4, FT3, CMP #### [facility] [address] [place] [address] Dr. Alicia Patel Urea nitrogen/Creatinine [Mass ratio] 14.9 mg/mg Normal [facility] Comment on above: Performed By: #### T SH, LIPID, T4, FT3, CMP #### [facility] [address] [place] [address] Dr. Alicia Patel TROPONIN, HIGH SENSITIVITYon 10-14-2022 HSTROP 9.6 pg/mL Normal 4.0-76.1 [facility] Comment on above: Result Comment: CUT- OFF POINTS HAVE BEEN ESTABLISHED BASED ON THE FOURTH UNIVERSAL DEFINITIONS OF MYOCARDIAL INFARCTION. THE UPPER REFERENCE LIMIT (URL) OF TROPONIN, DEFINED THE 99TH PERCENTILE OF cTnI DISTRIBUTION IN A REFERENCE POPULATION, HAS BEEN CONFIRMED THE DECISION THRESHOLD FOR AR DIAGNOSIS. Performed By: #### T SH, LIPID, T4, FT3, CMP #### [facility] [address] [place] [address] Dr. Alicia Patel CHEMISTRYOrdered By: Lab ROP User on 10-07-2022 Glucose [Mass/Vol] 101 mg/dL High 55 - 99 mg/dL [facility] POC Subsection Comment on above: Result Comment: Jackelin quach RN/ POC Device SN [id number] Invalid Interpretation Code [facility] P[facility] Subsection POC User ID [id number] Invalid Interpretation Code [facility] P[facility] Subsection POC Username BEE NORRIS Invalid Interpretation Code [facility] POC Subsection PTH INTACTon 09-14-2022 PTH, Intact 51 pg/mL Normal 15-65 [facility] Comment on above: Performed By: #### T SH, LIPID, T4, FT3, CMP #### [facility] [address] [place] [address] Dr. Alicia Patel HEMOGRAM AND PLATELon 2022 Hematocrit (Bld) [Volume fraction] 32.9 % Critically low 42.0-54.0 [facility] Comment on above: Performed By: #### T SH, LIPID, T4, FT3, CMP #### [facility] [address] [place] [address] Dr. Alicia Patel Hemoglobin (Bld) [Mass/Vol] 10.9 g/dL Critically low 14.0-18.0 [facility] Comment on above: Performed By: #### T SH, LIPID, T4, FT3, CMP #### [facility] [address] [place] [address] Dr. Alicia Patel MCH (RBC) [Entitic mass] 32.6 pg Normal 25.9-34.0 [facility] Comment on above: Performed By: #### T SH, LIPID, T4, FT3, CMP #### [facility] [address] [place] [address] Dr. Alicia Patel MCHC (RBC) [Mass/Vol] 33.1 g/dL Normal 29.9-35.2 [facility] Comment on above: Performed By: #### T SH, LIPID, T4, FT3, CMP #### [facility] [address] [place] [address] Dr. Alicia Patel MCV (RBC) [Entitic vol] 98.5 fL Critically high 80.0-94.0 [facility] Comment on above: Performed By: #### T SH, LIPID, T4, FT3, CMP #### [facility] [address] [place] [address] Dr. Alicia Patel PLT 145 103/ul Critically low 150-450 [facility] Comment on above: Performed By: #### T SH, LIPID, T4, FT3, CMP #### [facility] [address] [place] [address] Dr. Alicia Patel RBC 3.34 106/ul Critically low 4.70-6.10 [facility] Comment on above: Performed By: #### T SH, LIPID, T4, FT3, CMP #### [facility] [address] [place] [address] Dr. Alicia Patel WBC 5.1 103/ul Normal 4.0-11.0 [facility] Comment on above: Performed By: #### T SH, LIPID, T4, FT3, CMP #### [facility] [address] [place] [address] Dr. Alicia Patel MAGNESIUMon 09-13-2022 Magnesium [Mass/Vol] 1.5 mg/dL Critically low 1.8-2.4 [facility] Comment on above: Performed By: #### T SH, LIPID, T4, FT3, CMP #### [facility] [address] [place] [address] Dr. Alicia Patel RENAL FUNCTION PANELon 09-13 Albumin [Mass/Vol] 3.5 g/dL Normal 3.4-5.0 [facility] Comment on above: Performed By: #### U RTPCR #### [facility] [address] [address] [address] Alicia Patel Calcium [Mass/Vol] 8.4 mg/dL Critically low 8.5-10.1 [facility] Comment on above: Performed By: #### U RTPCR #### [facility] [address] [address] [address] Alicia Patel Chloride [Moles/Vol] 107 mmol/L Normal 98-107 [facility] Comment on above: Performed By: #### U RTPCR #### [facility] [address] [address] [address] Alicia Patel CO2 [Moles/Vol] 25.1 mmol/L Normal 21.0-32.0 [facility] Comment on above: Performed By: #### U RTPCR #### [facility] [address] [address] [address] Alicia Patel Creatinine [Mass/Vol] 1.96 mg/dL Critically high 0.70-1.30 [facility] Comment on above: Performed By: #### U RTPCR #### [facility] [address] [address] [address] Alicia Patel EGFR-AF MONEGASQUE 40 mL/min/1.73m2 Critically low >=60 [facility] Comment on above: Performed By: #### U RTPCR #### [facility] [address] [place] [address] Dr. Alicia Patel EGFR-NON AF MONEGASQUE 33 mL/min/1.73m2 Critically low >=60 [facility] Comment on above: Performed By: #### U RTPCR #### [facility] [address] [address] [address] Alicia Patel Glucose [Mass/Vol] 151 mg/dL Critically high 74-106 T [facility] Comment on above: Performed By: #### U RTPCR #### [facility] [address] [address] [address] Alicia Patel Phosphate [Mass/Vol] 3.5 mg/dL Normal 2.6-4.7 [facility] Comment on above: Performed By: #### U RTPCR #### [facility] [address] [place] [address] Dr. Alicia Patel Potassium [Moles/Vol] 4.3 mmol/L Normal 3.5-5.1 [facility] Comment on above: Performed By: #### U RTPCR #### [facility] [address] [place] [address] Dr. Alicia Patel Sodium [Moles/Vol] 142 mmol/L Normal 136-145 [facility] Comment on above: Performed By: #### U RTPCR #### [facility] [address] [place] [address] Dr. Alicia Patel Urea nitrogen [Mass/Vol] 23.0 mg/dL Critically high 7.0-18.0 [facility] Comment on above: Performed By: #### U RTPCR #### [facility] [address] [place] [address] Dr. Alicia Patel UA RANDOM W/MICROSCOPICon BACTERIA TRACE Abnormal NONE SEEN [facility] Comment on above: Performed By: #### T SH, LIPID, T4, FT3, CMP #### [facility] [address] [place] [address] Dr. Alicia Patel Bilirubin Ql (U) Negative Normal NEGATIVE [facility] Comment on above: Performed By: #### T SH, LIPID, T4, FT3, CMP #### [facility] [address] [place] [address] Dr. Alicia Patel CAST NONE SEEN Normal NONE SEEN [facility] Comment on above: Performed By: #### T SH, LIPID, T4, FT3, CMP #### [facility] [address] [place] [address] Dr. Alicia Patel Clarity (U) CLEAR Normal CLEAR [facility] Comment on above: Performed By: #### T SH, LIPID, T4, FT3, CMP #### [facility] [address] [place] [address] Dr. Alicia Patel Color (U) LT. YELLOW Normal YELLOW [facility] Comment on above: Performed By: #### T SH, LIPID, T4, FT3, CMP #### [facility] [address] [address] [address] Alicia Patel Crystals LM Nom (Urine sed) NONE SEEN Normal NONE SEEN [facility] Comment on above: Performed By: #### T SH, LIPID, T4, FT3, CMP #### [facility] [address] [address] [address] Alicia Patel Epithelial cells LM Ql (Urine sed) RARE Normal NONE SEEN /RARE [facility] Comment on above: Performed By: #### T SH, LIPID, T4, FT3, CMP #### [facility] [address] [address] [address] Alicia Patel Glucose Ql (U) 500 mg/dl Abnormal NEGATIVE [facility] Comment on above: Performed By: #### T SH, LIPID, T4, FT3, CMP #### [facility] [address] [place] [address] Dr. Alicia Patel Hemoglobin Ql (U) LARGE Abnormal NEGATIVE [facility] Comment on above: Performed By: #### T SH, LIPID, T4, FT3, CMP #### [facility] [address] [place] [address] Dr. Alicia Patel Ketones Ql (U) Negative Normal NEGATIVE [facility] Comment on above: Performed By: #### T SH, LIPID, T4, FT3, CMP #### [facility] [facility] [address] [address] [address] Alicia Patel LEUKOCYTES Negative Normal NEGATIVE [facility] Comment on above: Performed By: #### T SH, LIPID, T4, FT3, CMP #### [facility] [address] [address] [address] Alicia Patel MUCOUS NONE SEEN Normal NONE SEEN [facility] Comment on above: Performed By: #### T SH, LIPID, T4, FT3, CMP #### [facility] [address] [place] [address] Dr. Alicia Patel Nitrite Ql (U) Negative Normal NEGATIVE [facility] Comment on above: Performed By: #### T SH, LIPID, T4, FT3, CMP #### [facility] [address] [place] [address] Dr. Alicia Patel pH (U) 6.0 [pH] Normal 5-9 [facility] Comment on above: Performed By: #### T SH, LIPID, T4, FT3, CMP #### [facility] [address] [place] [address] Dr. Alicia Patel RBC 20-50 Abnormal 0-2 [facility] Comment on above: Performed By: #### T SH, LIPID, T4, FT3, CMP #### [facility] [address] [place] [address] Dr. Alicia Patel SPEC GRAVITY 1.020 Normal 1.005-<=1. 025 [facility] Comment on above: Performed By: #### T SH, LIPID, T4, FT3, CMP #### [facility] [address] [place] [address] Dr. Alicia Patel UA PROTEIN 100 mg/dl Abnormal NEGATIVE/ TRACE [facility] Comment on above: Performed By: #### T SH, LIPID, T4, FT3, CMP #### [facility] [address] [place] [address] Dr. Alicia Patel Urobilinogen Qn (U) 0.2 {Wil'U}/dL Normal 0.2 - 1. 0 [facility] Comment on above: Performed By: #### T SH, LIPID, T4, FT3, CMP #### [facility] [address] [place] [address] Dr. Alicia Patel WBC 0-2 Abnormal NONE SEEN [facility] Comment on above: Performed By: #### T SH, LIPID, T4, FT3, CMP #### [facility] [address] [place] [address] Dr. Alicia Patel URIC ACID SERUMon 09-13-2022 Urate [Mass/Vol] 5.8 mg/dL Normal 3.5-7.2 [facility] Comment on above: Performed By: #### U RTPCR #### [facility] [address] [place] [address] Dr. Alicia Patel URINE T PROTEIN CREAT RATIOo n 09-13-2022 Protein (U) [Mass/Vol] 122.4 mg/dL Critically high <=12.0 [facility] Comment on above: Performed By: #### U RTPCR #### [facility] [address] [place] [address] Dr. Alicia Patel UR PROT CREAT RAT 1.38 Normal [facility] Comment on above: Performed By: #### U RTPCR #### [facility] [address] [place] [address] Dr. Alicia Patel URINE CREAT 88.74 mg/dL Normal 20.00-300. 00 [facility] Comment on above: Performed By: #### U RTPCR #### [facility] [address] [place] [address] Dr. Alicia Patel VITAMIN D 25 OHon 09-13-2022 VIT D 25-OH 58.0 ng/mL Normal [facility] Comment on above: Performed By: #### T SH, LIPID, T4, FT3, CMP #### [facility] [address] [place] [address] Dr. Alicia Patel VIT D RANGES SEE BELOW Normal [facility] Comment on above: Result Comment: <20 ng/mL Vit D deficient 20 - <30 ng/mL Vit D insufficient 30 - 100 ng/mL Vit D sufficient >100 ng/mL Potential Toxicity Performed By: #### T SH, LIPID, T4, FT3, CMP #### [facility] [address] [place] [address] Dr. Alicia Patel US KIDNEYSon 09-01-2022 US KIDNEYS EXAMINATION: [facility] HISTORY: Kidney stone COMPARISON: No relevant comparison [...] TYLER MONSIVAIS Date: 2022-09-01 09:33 Normal [facility] PSA, FREE AND TOTAL RATIOon 08-25-2022 % Free PSA 13.7 % Normal [facility] Comment on [...] T SH, LIPID, T4, FT3, CMP #### [facility] [address] [address] [address] Alicia Patel Prostate specific Ag [Mass/Vol] 6.2 ng/mL Critically high 0.0-4.0 [facility] Comment on above: Result Comment: Roch vijay ECLIA methodology. . According to the [employer], Serum PSA should decrease and [...] T SH, LIPID, T4, FT3, CMP #### [facility] [address], [place] [address] Dr. Alicia Patel PSA, Free 0.85 ng/mL Normal N/A [facility] Comment on above: Result Comment: Roch e ECLIA methodology. Performed By: #### T SH, LIPID, T4, FT3, CMP #### [facility] [address] [place] [address] Dr. Alicia Patel OCC BLD IMMUNO SCREENon 07-29 OCCULT BLOOD Negative Normal NEGATIVE [facility] Comment on above: Performed By: #### T SH, LIPID, T4, FT3, CMP #### [facility] [address] [place] [address] Dr. Alicia Patel CBC AUTO DIFFon 08-21-2022 BASO # 0.0 103/ul Normal 0.0-0.1 [facility] Comment on above: Performed By: #### U RTPCR #### [facility] [address] [place] [address] Dr. Alicia Patel Basophils/100 WBC (Bld) 0.3 % Normal 0.2-2.0 [facility] Comment on above: Performed By: #### U RTPCR #### [facility] [address] [place] [address] Dr. Alicia Patel EO # 0.2 103/ul Normal 0.0-0.7 [facility] Comment on above: Performed By: #### U RTPCR #### [facility] [address] [place] [address] Dr. Alicia Patel Eosinophils/100 WBC (Bld) 3.2 % Normal 0.9-7.0 [facility] Comment on above: Performed By: #### U RTPCR #### [facility] [address] [place] [address] Dr. Alicia Patel Erythrocyte distribution width (RBC) [Ratio] 12.9 % Normal 11.0-15.0 [facility] Comment on above: Performed By: #### U RTPCR #### [facility] [address] [place] [address] Dr. Alicia Patel Hematocrit (Bld) [Volume fraction] 35.4 % Critically low 42.0-54.0 [facility] Comment on above: Performed By: #### U RTPCR #### [facility] [address] [place] [address] Dr. Alicia Patel Hemoglobin (Bld) [Mass/Vol] 11.7 g/dL Critically low 14.0-18.0 [facility] Comment on above: Performed By: #### U RTPCR #### [facility] [address] [place] [address] Dr. Alicia Patel IG # 0.08 10e3/ul Critically high 0.00-0.03 [facility] Comment on above: Performed By: #### U RTPCR #### [facility] [address] [place] [address] Dr. Alicia Patel IG % 1.2 % Critically high 0.0-0.5 [facility] Comment on above: Performed By: #### U RTPCR #### [facility] [address] [place] [address] Dr. Alicia Patel LYMPH # 1.1 103/ul Critically low 1.2-3.8 [facility] Comment on above: Performed By: #### U RTPCR #### [facility] [address] [place] [address] Dr. Alicia Patel Lymphocytes/100 WBC (Bld) 16.6 % Critically low 20.5-60.0 [facility] Comment on above: Performed By: #### U RTPCR #### [facility] [address] [place] [address] Dr. Alicia Patel MANUAL DIFF REQ NO Normal [facility] Comment on above: Performed By: #### U RTPCR #### [facility] [address] [place] [address] Dr. Alicia Patel MCH (RBC) [Entitic mass] 32.4 pg Normal 25.9-34.0 [facility] Comment on above: Performed By: #### U RTPCR #### [facility] [address] [place] [address] Dr. Alicia Patel MCHC (RBC) [Mass/Vol] 33.1 g/dL Normal 29.9-35.2 [facility] Comment on above: Performed By: #### U RTPCR #### [facility] [address] [place] [address] Dr. Alicia Patel MCV (RBC) [Entitic vol] 98.1 fL Critically high 80.0-94.0 [facility] Comment on above: Performed By: #### U RTPCR #### [facility] [address] [place] [address] Dr. Alicia Patel MONO # 0.6 103/ul Normal 0.3-0.8 [facility] Comment on above: Performed By: #### U RTPCR #### [facility] [address] [place] [address] Dr. Alicia Patel Monocytes/100 WBC (Bld) 8.8 % Normal 1.7-12.0 [facility] Comment on above: Performed By: #### U RTPCR #### [facility] [address] [place] [address] Dr. Alicia Patel NEUT # 4.8 103/ul Normal 1.4-6.5 [facility] Comment on above: Performed By: #### U RTPCR #### [facility] [address] [place] [address] Dr. Alicia Patel Neutrophils/100 WBC (Bld) 69.9 % Normal 43.0-75.0 [facility] Comment on above: Performed By: #### U RTPCR #### [facility] [address] [place] [address] Dr. Alicia Patel Platelet mean volume (Bld) [Entitic vol] 10.4 fL Normal 9.5-13.5 [facility] Comment on above: Performed By: #### U RTPCR #### [facility] [address] [place] [address] Dr. Alicia Patel PLT 200 103/ul Normal 150-450 [facility] Comment on above: Performed By: #### U RTPCR #### [facility] [address] [place] [address] Dr. Alicia Patel RBC 3.61 106/ul Critically low 4.70-6.10 [facility] Comment on above: Performed By: #### U RTPCR #### [facility] [address] [place] [address] Dr. Alicia Patel WBC 6.8 103/ul Normal 4.0-11.0 [facility] Comment on above: Performed By: #### U RTPCR #### [facility] [address] [place] [address] Dr. Alicia Patel FREE T3on 08-21-2022 FREE T3 1.91 pg/mlL Critically low 2.18-3.98 [facility] Comment on above: Performed By: #### T SH, LIPID, T4, FT3, CMP #### [facility] [address] [place] [address] Dr. Alicia Patel GLYCOHEMOGLOBIN A1Con 2022 ADA RECOMMENDATION SEE BELOW Normal [facility] Comment on above: Result Comment: ADA RECOMMENDED LIMIT 4.0 - 6.0 ADA THERAPEUTIC TARGET < 7.0 ACTION SUGGESTED > 7.0 Performed By: #### T SH, LIPID, T4, FT3, CMP #### [facility] [address] [place] [address] Dr. Alicia Patel Glucose [Mass/Vol] 194 mg/dL Normal [facility] Comment on above: Performed By: #### T SH, LIPID, T4, FT3, CMP #### [facility] [address] [place] [address] Dr. Alicia Patel HbA1c (Bld) [Mass fraction] 8.4 % Critically high 4.5-6.2 [facility] Comment on above: Performed By: #### T SH, LIPID, T4, FT3, CMP #### [facility] [address] [place] [address] Dr. Alicia Patel LIPID PROFILEon 08-21-2022 CHOL-HDL RATIO NORM SEE BELOW Normal [facility] Comment on above: Result Comment: 3.3 - 4.4 LOW RISK 4.4 - 7.1 AVERAGE RISK 7.1 - 11.0 MODERATE RISK >11.0 HIGH RISK Performed By: #### T SH, LIPID, T4, FT3, CMP #### [facility] [address] [place] [address] Dr. Alicia Patel Cholesterol [Mass/Vol] 120 mg/dL Normal <=200 [facility] Comment on above: Performed By: #### T SH, LIPID, T4, FT3, CMP #### [facility] [address] [address] [address] Alicia Patel Cholesterol in HDL [Mass/Vol] 30 mg/dL Critically low 40-60 [facility] Comment on above: Performed By: #### T SH, LIPID, T4, FT3, CMP #### [facility] [address] [address] [address] Alicia Patel Cholesterol in LDL [Mass/Vol] 59.8 mg/dL Normal [facility] Comment on above: Performed By: #### T SH, LIPID, T4, FT3, CMP #### [facility] [address] [address] [address] Alicia Patel Cholesterol.total/Chol esterol in HDL [Mass ratio] 4.0 {ratio} Normal [facility] Comment on above: Performed By: #### T SH, LIPID, T4, FT3, CMP #### [facility] [address] [address] [address] Alicia Patel HDL NORMAL > or = 60 mg/dl - LO W CARDIOVASCULAR RISK <40 mg/dl - HIGH CARDIOVASCULAR RISK Normal [facility] Comment on above: Performed By: #### T SH, LIPID, T4, FT3, CMP #### [facility] [address] [place] [address] Dr. Alicia Patel LDL CALC NORMAL SEE BELOW Normal [facility] Comment on above: Result Comment: <100 mg/dl OPTIMAL 100 - 129 mg/dl NEAR OR ABOVE OPTIMAL 130 - 159 mg/dl BORDERLINE HIGH 160 - 189 mg/dl HIGH >190 mg/dl VERY HIGH Performed By: #### T SH, LIPID, T4, FT3, CMP #### [facility] [address] [address] [address] Alicia Patel Triglyceride [Mass/Vol] 151 mg/dL Critically high <=150 [facility] Comment on above: Performed By: #### T SH, LIPID, T4, FT3, CMP #### [facility] [address] [address] [address] Alicia Patel VLDL CALC 30.2 mg/dL Normal [facility] Comment on above: Performed By: #### T SH, LIPID, T4, FT3, CMP #### [facility] [address] [address] [address] Alicia Patel PROF 14(COMP METB)on 023 Albumin [Mass/Vol] 3.3 g/dL Critically low 3.4-5.0 [facility] Comment on above: Performed By: #### T SH, LIPID, T4, FT3, CMP #### [facility] [address] [place] [address] Dr. Alicia aPtel Albumin/Globulin [Mass ratio] 0.9 {ratio} Normal [facility] Comment on above: Performed By: #### T SH, LIPID, T4, FT3, CMP #### [facility] [address] [place] [address] Dr. Alicia Patel ALP [Catalytic activity/Vol] 79 U/L Normal 46-116 [facility] Comment on above: Performed By: #### T SH, LIPID, T4, FT3, CMP #### [facility] [address] [place] [address] Dr. Alicia Patel ALT [Catalytic activity/Vol] 61 U/L Normal 16-63 [facility] Comment on above: Performed By: #### T SH, LIPID, T4, FT3, CMP #### [facility] [address] [place] [address] Dr. Alicia Patel Anion gap [Moles/Vol] 12.6 mmol/L Normal [facility] Comment on above: Performed By: #### T SH, LIPID, T4, FT3, CMP #### [facility] [address] [place] [address] Dr. Alicia Patel AST [Catalytic activity/Vol] 39 U/L Critically high 15-37 [facility] Comment on above: Performed By: #### T SH, LIPID, T4, FT3, CMP #### [facility] [address] [place] [address] Dr. Alicia Patel Bilirubin [Mass/Vol] 0.7 mg/dL Normal 0.2-1.0 [facility] Comment on above: Performed By: #### T SH, LIPID, T4, FT3, CMP #### [facility] [address] [place] [address] Dr. Alicia Patel Calcium [Mass/Vol] 8.9 mg/dL Normal 8.5-10.1 [facility] Comment on above: Performed By: #### T SH, LIPID, T4, FT3, CMP #### [facility] [address] [place] [address] Dr. Alicia Patel Chloride [Moles/Vol] 111 mmol/L Critically high 98-107 [facility] Comment on above: Performed By: #### T SH, LIPID, T4, FT3, CMP #### [facility] [address] [place] [address] Dr. Alicia Patel CO2 [Moles/Vol] 24.0 mmol/L Normal 21.0-32.0 [facility] Comment on above: Performed By: #### T SH, LIPID, T4, FT3, CMP #### [facility] [address] [place] [address] Dr. Alicia Patel Creatinine [Mass/Vol] 1.80 mg/dL Critically high 0.70-1.30 [facility] Comment on above: Performed By: #### T SH, LIPID, T4, FT3, CMP #### [facility] [address] [place] [address] Dr. Alicia Patel EGFR-AF MONEGASQUE 44 mL/min/1.73m2 Critically low >=60 [facility] Comment on above: Performed By: #### T SH, LIPID, T4, FT3, CMP #### [facility] [address] [place] [address] Dr. Alicia Patel EGFR-NON AF MONEGASQUE 36 mL/min/1.73m2 Critically low >=60 [facility] Comment on above: Performed By: #### T SH, LIPID, T4, FT3, CMP #### [facility] [address] [place] [address] Dr. Alicia Patel Globulin (S) [Mass/Vol] 3.5 g/dL Normal [facility] Comment on above: Performed By: #### T SH, LIPID, T4, FT3, CMP #### [facility] [address] [place] [address] Dr. Alicia Patel Glucose [Mass/Vol] 118 mg/dL Critically high 74-106 [facility] Comment on above: Performed By: #### T SH, LIPID, T4, FT3, CMP #### [facility] [address] [place] [address] Dr. Alicia Patel Potassium [Moles/Vol] 4.6 mmol/L Normal 3.5-5.1 [facility] Comment on above: Performed By: #### T SH, LIPID, T4, FT3, CMP #### [facility] [address] [place] [address] Dr. Alicia Patel Protein [Mass/Vol] 6.8 g/dL Normal 6.4-8.2 [facility] Comment on above: Performed By: #### T SH, LIPID, T4, FT3, CMP #### [facility] [address] [place] [address] Dr. Alicia Patel Sodium [Moles/Vol] 143 mmol/L Normal 136-145 [facility] Comment on above: Performed By: #### T SH, LIPID, T4, FT3, CMP #### [facility] [address] [place] [address] Dr. Alicia Patel Urea nitrogen [Mass/Vol] 31.0 mg/dL Critically high 7.0-18.0 [facility] Comment on above: Performed By: #### T SH, LIPID, T4, FT3, CMP #### [facility] [address] [place] [address] Dr. Alicia Patel Urea nitrogen/Creatinine [Mass ratio] 17.2 mg/mg Normal [facility] Comment on above: Performed By: #### T SH, LIPID, T4, FT3, CMP #### [facility] [address] [place] [address] Dr. Alicia Patel T4on 08-21-2022 T4 [Mass/Vol] 7.70 ug/dL Normal 4.50-12.10 [facility] Comment on above: Performed By: #### T SH, LIPID, T4, FT3, CMP #### [facility] [address] [place] [address] Dr. Alicia Patel TSHon 08-21-2022 TSH 1.138 uIU/mL Normal 0.358-3.74 0 [facility] Comment on above: Performed By: #### T SH, LIPID, T4, FT3, CMP #### [facility] [address] [place] [address] Dr. Alicia Patel RENAL FUNCTION PANELon 08-18 Albumin [Mass/Vol] 3.3 g/dL Critically low 3.4-5.0 [facility] Comment on above: Performed By: #### U RTPCR #### [facility] [address] [place] [address] Dr. Alicia Patel Calcium [Mass/Vol] 8.3 mg/dL Critically low 8.5-10.1 [facility] Comment on above: Performed By: #### U RTPCR #### [facility] [address] [place] [address] Dr. Alicia Patel Chloride [Moles/Vol] 109 mmol/L Critically high 98-107 [facility] Comment on above: Performed By: #### U RTPCR #### [facility] [address] [place] [address] Dr. Alicia Patel CO2 [Moles/Vol] 22.1 mmol/L Normal 21.0-32.0 [facility] Comment on above: Performed By: #### U RTPCR #### [facility] [address] [place] [address] Dr. Alicia Patel Creatinine [Mass/Vol] 2.14 mg/dL Critically high 0.70-1.30 [facility] Comment on above: Performed By: #### U RTPCR #### [facility] [address] [place] [address] Dr. Alicia Patel EGFR-AF MONEGASQUE 36 mL/min/1.73m2 Critically low >=60 [facility] Comment on above: Performed By: #### U RTPCR #### [facility] [address] [place] [address] Dr. Alicia Patel EGFR-NON AF MONEGASQUE 30 mL/min/1.73m2 Critically low >=60 [facility] Comment on above: Performed By: #### U RTPCR #### [facility] [address] [address] [address] Alicia Patel Glucose [Mass/Vol] 102 mg/dL Normal 74-106 [facility] Comment on above: Performed By: #### U RTPCR #### [facility] [address] [address] [address] Alicia Patel Phosphate [Mass/Vol] 3.1 mg/dL Normal 2.6-4.7 [facility] Comment on above: Performed By: #### U RTPCR #### [facility] [address] [address] [address] Alicia Patel Potassium [Moles/Vol] 3.9 mmol/L Normal 3.5-5.1 [facility] Comment on above: Performed By: #### U RTPCR #### [facility] [address] [address] [address] Alicia Patel Sodium [Moles/Vol] 141 mmol/L Normal 136-145 [facility] Comment on above: Performed By: #### U RTPCR #### [facility] [address] [address] [address] Alicia Patel Urea nitrogen [Mass/Vol] 41.0 mg/dL Critically high 7.0-18.0 [facility] Comment on above: Performed By: #### U RTPCR #### [facility] [address] [place] [address] Dr. Alicia Patel Creatinine and Glomerular fi ltration rate.predicted panel (S/P/Bld)Ordered By: Hiral Interiano on 08-15-2022 Creatinine [Mass/Vol] 3.46 mg/dL 0.64-1.27 [facility] Comment on above: Delta: 6.60 on 08/14-3 Estimated glomerular filtrat ion rate (GFR) non- AmericanOrdered By: Hiral Interiano on 08-15-2022 GFR/1.73 sq M.predicted among non-blacks MDRD (S/P/Bld) [Vol rate/Area] 17 mL/Min [facility] Glucose Glucometer (BldC) [M ass/Vol]Ordered By: Hiral Interiano on 08-15-2022 Glucose [Mass/Vol] 135 mg/dL [facility] Comment on above: Random Glucose Refer ence Range is dependent on time and content of last meal. Glucose of more than 200 mg/dL in a nonstressed, ambulatory subject supports the diagnosis of Diabetes Mellitus. No Panel InformationOrdered By: Hiral Interiano on 08-15-2022 Estimated GFR () 21 mL/Min [facility] Comment on above: GFR estimated refere nce range: According to KDOQI guidelines, <60 ml/min/1.73m2 is sufficient to diagnose a patient with chronic kidney disease. Pharmacy Creatinine Clearance (Chem 21.94 [facility] Serum or plasma anion gap de terminationOrdered By: Hiral Interiano on 08-15-2022 Anion gap [Moles/Vol] 10.3 mmol/L 6.0-15.0 [facility] Serum or plasma calcium alpesh urement (mass/volume)Ordered By: Hiral Interiano on 08-15-2022 Calcium [Mass/Vol] 7.7 mg/dL 8.2-10.2 [facility] Serum or plasma chloride adina surement (moles/volume)Ordered By: Hiral Interiano on 08-15-2022 Chloride [Moles/Vol] 112 mmol/L 95-114 [facility] Serum or plasma glucose alpesh urement (mass/volume)Ordered By: Hiral Interiano on 08-15-2022 Glucose [Mass/Vol] 140 mg/dL 70-100 [facility] Comment on above: ADA recommended refe rence rangeRandom Glucose Reference Range is dependent on time and content of last meal. Glucose of more than 200 mg/dL in a nonstressed, ambulatory subject supports the diagnosis of Diabetes Mellitus. Serum or plasma potassium me asurement (moles/volume)Ordered By: Hiral Interiano on 08-15-2022 Potassium [Moles/Vol] 3.8 mmol/L 3.5-5.1 [facility] Serum or plasma sodium measu rement (moles/volume)Ordered By: Hiral Interiano on 08-15-2022 Sodium [Moles/Vol] 140 mmol/L 136-146 [facility] Serum or plasma total carbon dioxide measurement (moles/volume)Ordered By: Hiral Interiano on 08-15-2022 CO2 [Moles/Vol] 21.5 mmol/L 22.0-30.0 [facility] Serum or plasma urea nitroge n measurement (mass/volume)Ordered By: Hiral Interiano on 08-15-2022 Urea nitrogen [Mass/Vol] 45 mg/dL 9-23 [facility] Basophils Auto (Bld) [#/Vol] Ordered By: Hiral Interiano on 08-14-2022 Basophils (Bld) [#/Vol] 0.0 10*3/uL 0.0-0.2 [facility] Basophils/100 WBC Auto (Bld) Ordered By: Hiral Interiano on 08-14-2022 Basophils/100 WBC (Bld) 0.2 % . [facility] Eosinophils Auto (Bld) [#/Vo l]Ordered By: Hiral Interiano on 08-14-2022 Eosinophils (Bld) [#/Vol] 0.1 10*3/uL 0.0-0.45 [facility] Eosinophils/100 WBC Auto (Bl d)Ordered By: Hiral Interiano on 08-14-2022 Eosinophils/100 WBC (Bld) 1.0 % . [facility] Erythrocyte distribution wid th Auto (RBC) [Ratio]Ordered By: Hiral Interiano on 08-14-2022 Erythrocyte distribution width (RBC) [Ratio] 13.5 % 12.0-14.8 [facility] Hematocrit Auto (Bld) [Volum e fraction]Ordered By: Hiral Interiano on 08-14-2022 Hematocrit (Bld) [Volume fraction] 35.4 % 38.8-50.0 [facility] Hemoglobin [Mass/volume] in BloodOrdered By: Hiral Interiano on 08-14-2022 Hemoglobin (Bld) [Mass/Vol] 12.0 g/dL 13.0-17.0 [facility] Leukocytes [#/volume] correc ike for nucleated erythrocytes in Blood by Automated counOrdered By: Hiral Interiano on 08-14-2022 WBC corrected for nucl RBC Auto (Bld) [#/Vol] 7.4 10*3/uL 4.1-10.5 [facility] Lymphocytes Auto (Bld) [#/Vo l]Ordered By: Hiral Interiano on 08-14-2022 Lymphocytes (Bld) [#/Vol] 0.6 10*3/uL 1.00-4.8 [facility] Lymphocytes/100 WBC Auto (Bl d)Ordered By: Hiral Interiano on 08-14-2022 Lymphocytes/100 WBC (Bld) 7.8 % . [facility] MCH Auto (RBC) [Entitic mass ]Ordered By: Hiral Interiano on 08-14-2022 MCH (RBC) [Entitic mass] 33.0 pg 27.5-35.2 [facility] MCHC Auto (RBC) [Mass/Vol]Or dered By: Hiral Interiano on 08-14-2022 MCHC (RBC) [Mass/Vol] 33.9 g/dL 32.5-35.6 [facility] MCV Auto (RBC) [Entitic vol] Ordered By: Hiral Interiano on 08-14-2022 MCV (RBC) [Entitic vol] 97.3 fL 83.5-101 [facility] Monocytes Auto (Bld) [#/Vol] Ordered By: Hiral Interiano on 08-14-2022 Monocytes (Bld) [#/Vol] 0.8 10*3/uL 0.0-0.8 [facility] Monocytes/100 WBC Auto (Bld) Ordered By: Hiral Interiano on 08-14-2022 Monocytes/100 WBC (Bld) 11.4 % . [facility] Neutrophils Auto (Bld) [#/Vo l]Ordered By: Hiral Interiano on 08-14-2022 Neutrophils (Bld) [#/Vol] 5.9 10*3/uL 1.8-7.7 [facility] Neutrophils/100 WBC Auto (Bl d)Ordered By: Hiral Interiano on 08-14-2022 Neutrophils/100 WBC (Bld) 79.6 % . [facility] No Panel InformationOrdered By: Hiral Interiano on 08-14-2022 Bedside Glucose Comment Glu2: cleaned meter [facility] Nucleated erythrocytes [Pres ence] in Blood by Automated countOrdered By: Hiral Interiano on 08-14-2022 Nucleated RBC Auto Ql (Bld) 0.1 /100{WBC} 0-0.5 [facility] Platelet mean volume Auto (B ld) [Entitic vol]Ordered By: Hiral Interiano on 08-14-2022 Platelet mean volume (Bld) [Entitic vol] 8.4 fL 6.6-10.1 [facility] Platelets Auto (Bld) [#/Vol] Ordered By: Hiral Interiano on 08-14-2022 Platelets (Bld) [#/Vol] 121 10*3/uL 150-450 [facility] RBC Auto (Bld) [#/Vol]Ordere d By: Hiral Interiano on 08-14-2022 RBC (Bld) [#/Vol] 3.64 10*6/uL 3.90-5.60 [facility] WBC Auto (Bld) [#/Vol]Ordere d By: Hiral Interiano on 08-14-2022 WBC (Bld) [#/Vol] 7.4 10*3/uL 4.1-10.5 [facility] Body fluid albumin measureme nt (mass/volume)Ordered By: Alicia León on 08-13-2022 Albumin (Body fld) [Mass/Vol] 3.0 g/dL 3.2-5.5 [facility] Glucose mean value [Mass/vol ume] in Blood Estimated from glycated hemoglobinOrdered By: Hiral Interiano on 08-12-2022 Average glucose Estimated from glycated hemoglobin (Bld) [Mass/Vol] 212 mg/dL [facility] Hemoglobin A1c percentageOrd ered By: Hiral Interiano on 08-12-2022 HbA1c (Bld) [Mass fraction] 9.0 % 4.3-5.6 [facility] Comment on above: Increased risk for d iabetes: 5.7 - 6.4diabetes: >6.4glycemic control for adults with diabetes: <7.0 Anisocytosis LM Ql (Bld)Orde red By: Hiral Interiano on 08-11-2022 Anisocytosis Ql (Bld) Slight [facility] Band form neutrophils/100 WB C Manual cnt (Bld)Ordered By: Hiral Interiano on 08-11-2022 Band form neutrophils/100 WBC (Bld) 1 % 0-5 [facility] Beta-hydroxybutyric acid adina surementOrdered By: Alicia León on 08-11-2022 Beta hydroxybutyrate [Mass/Vol] 2.40 mmol/L 0.05-0.27 [facility] Bayside cells [Presence] in Blo od by Light microscopyOrdered By: Hiral Interiano on 08-11-2022 Bayside cells LM Ql (Bld) Slight [facility] CARDIAC GUIDO 3-6on 3 CK [Catalytic activity/Vol] 162 U/L Normal 39-308 [facility] Comment on above: Performed By: #### T SH, LIPID, T4, FT3, CMP #### [facility] [address] [address] [address] Alicia ARAIZA.MB [Mass/Vol] 5.52 ng/mL Critically high <=3.60 [facility] Comment on above: Performed By: #### T SH, LIPID, T4, FT3, CMP #### [facility] [address] [address] [address] Alicia Patel HSTROP 19.7 pg/mL Normal 4.0-76.1 [facility] Comment on above: Result Comment: CUT- OFF POINTS HAVE BEEN ESTABLISHED BASED ON THE FOURTH UNIVERSAL DEFINITIONS OF MYOCARDIAL INFARCTION. THE UPPER REFERENCE LIMIT (URL) OF TROPONIN, DEFINED THE 99TH PERCENTILE OF cTnI DISTRIBUTION IN A REFERENCE POPULATION, HAS BEEN CONFIRMED THE DECISION THRESHOLD FOR AR DIAGNOSIS. Performed By: #### T SH, LIPID, T4, FT3, CMP #### [facility] [address] [address] [address] Alicia Patel CK [Catalytic activity/Vol] 150 U/L Normal 39-308 [facility] Comment on above: Performed By: #### T SH, LIPID, T4, FT3, CMP #### [facility] [address] [place] [address] Dr. Alicia Patel CK.MB [Mass/Vol] 4.99 ng/mL Critically high <=3.60 [facility] Comment on above: Performed By: #### T SH, LIPID, T4, FT3, CMP #### [facility] [address] [place] [address] Dr. Alicia Patel HSTROP 16.9 pg/mL Normal 4.0-76.1 [facility] Comment on above: Result Comment: CUT- OFF POINTS HAVE BEEN ESTABLISHED BASED ON THE FOURTH UNIVERSAL DEFINITIONS OF MYOCARDIAL INFARCTION. THE UPPER REFERENCE LIMIT (URL) OF TROPONIN, DEFINED THE 99TH PERCENTILE OF cTnI DISTRIBUTION IN A REFERENCE POPULATION, HAS BEEN CONFIRMED THE DECISION THRESHOLD FOR AR DIAGNOSIS. Performed By: #### T SH, LIPID, T4, FT3, CMP #### [facility] [address] [place] [address] Dr. Alicia Patel CARDIAC GUIDO ADMITon 023 CK [Catalytic activity/Vol] 128 U/L Normal 39-308 [facility] Comment on above: Performed By: #### T SH, LIPID, T4, FT3, CMP #### [facility] [address] [place] [address] Dr. Alicia Patel CK.MB [Mass/Vol] 4.95 ng/mL Critically high <=3.60 [facility] Comment on above: Performed By: #### T SH, LIPID, T4, FT3, CMP #### [facility] [address] [place] [address] Dr. Alicia Patel HSTROP 18.0 pg/mL Normal 4.0-76.1 [facility] Comment on above: Result Comment: CUT- OFF POINTS HAVE BEEN ESTABLISHED BASED ON THE FOURTH UNIVERSAL DEFINITIONS OF MYOCARDIAL INFARCTION. THE UPPER REFERENCE LIMIT (URL) OF TROPONIN, DEFINED THE 99TH PERCENTILE OF cTnI DISTRIBUTION IN A REFERENCE POPULATION, HAS BEEN CONFIRMED THE DECISION THRESHOLD FOR AR DIAGNOSIS. Performed By: #### T SH, LIPID, T4, FT3, CMP #### [facility] [address] [place] [address] Dr. Alicia Patel LIZZY 188 ng/mL Critically high 16-96 [facility] Comment on above: Performed By: #### T SH, LIPID, T4, FT3, CMP #### [facility] [address] [place] [address] Dr. Alicia Patel CBC AUTO DIFFon 08-11-2022 BASO # 0.0 103/ul Normal 0.0-0.1 [facility] Comment on above: Performed By: #### T SH, LIPID, T4, FT3, CMP #### [facility] [address] [place] [address] Dr. Alicia Patel Basophils/100 WBC (Bld) 0.3 % Normal 0.2-2.0 [facility] Comment on above: Performed By: #### T SH, LIPID, T4, FT3, CMP #### [facility] [address] [place] [address] Dr. Alicia Patel EO # 0.2 103/ul Normal 0.0-0.7 [facility] Comment on above: Performed By: #### T SH, LIPID, T4, FT3, CMP #### [facility] [address] [place] [address] Dr. Alicia Patel Eosinophils/100 WBC (Bld) 1.8 % Normal 0.9-7.0 [facility] Comment on above: Performed By: #### T SH, LIPID, T4, FT3, CMP #### [facility] [address] [place] [address] Dr. Alicia Patel Erythrocyte distribution width (RBC) [Ratio] 13.2 % Normal 11.0-15.0 [facility] Comment on above: Performed By: #### T SH, LIPID, T4, FT3, CMP #### [facility] [address] [place] [address] Dr. Alicia Patel Hematocrit (Bld) [Volume fraction] 36.0 % Critically low 42.0-54.0 [facility] Comment on above: Performed By: #### T SH, LIPID, T4, FT3, CMP #### [facility] [address] [place] [address] Dr. Alicia Patel Hemoglobin (Bld) [Mass/Vol] 12.0 g/dL Critically low 14.0-18.0 [facility] Comment on above: Performed By: #### T SH, LIPID, T4, FT3, CMP #### [facility] [address] [place] [address] Dr. Alicia Patel IG # 0.34 10e3/ul Critically high 0.00-0.03 [facility] Comment on above: Performed By: #### T SH, LIPID, T4, FT3, CMP #### [facility] [address] [place] [address] Dr. Alicia Patel IG % 3.8 % Critically high 0.0-0.5 [facility] Comment on above: Performed By: #### T SH, LIPID, T4, FT3, CMP #### [facility] [address] [place] [address] Dr. Alicia Patel LYMPH # 0.5 103/ul Critically low 1.2-3.8 [facility] Comment on above: Performed By: #### T SH, LIPID, T4, FT3, CMP #### [facility] [address] [place] [address] Dr. Alicia Patel Lymphocytes/100 WBC (Bld) 5.9 % Critically low 20.5-60.0 [facility] Comment on above: Performed By: #### T SH, LIPID, T4, FT3, CMP #### [facility] [address] [place] [address] Dr. Alicia Patel MANUAL DIFF REQ NO Normal [facility] Comment on above: Performed By: #### T SH, LIPID, T4, FT3, CMP #### [facility] [address] [place] [address] Dr. Alicia Patel MCH (RBC) [Entitic mass] 32.3 pg Normal 25.9-34.0 [facility] Comment on above: Performed By: #### T SH, LIPID, T4, FT3, CMP #### [facility] [address] [place] [address] Dr. Alicia Patel MCHC (RBC) [Mass/Vol] 33.3 g/dL Normal 29.9-35.2 [facility] Comment on above: Performed By: #### T SH, LIPID, T4, FT3, CMP #### [facility] [address] [place] [address] Dr. Alicia Patel MCV (RBC) [Entitic vol] 97.0 fL Critically high 80.0-94.0 [facility] Comment on above: Performed By: #### T SH, LIPID, T4, FT3, CMP #### [facility] [address] [place] [address] Dr. Alicia Patel MONO # 0.5 103/ul Normal 0.3-0.8 [facility] Comment on above: Performed By: #### T SH, LIPID, T4, FT3, CMP #### [facility] [address] [place] [address] Dr. Alicia Patel Monocytes/100 WBC (Bld) 5.5 % Normal 1.7-12.0 [facility] Comment on above: Performed By: #### T SH, LIPID, T4, FT3, CMP #### [facility] [address] [place] [address] Dr. Alicia Patel NEUT # 7.5 103/ul Critically high 1.4-6.5 [facility] Comment on above: Performed By: #### T SH, LIPID, T4, FT3, CMP #### [facility] [address] [place] [address] Dr. Alicia Patel Neutrophils/100 WBC (Bld) 82.7 % Critically high 43.0-75.0 [facility] Comment on above: Performed By: #### T SH, LIPID, T4, FT3, CMP #### [facility] [address] [place] [address] Dr. Alicia Patel Platelet mean volume (Bld) [Entitic vol] 10.2 fL Normal 9.5-13.5 [facility] Comment on above: Performed By: #### T SH, LIPID, T4, FT3, CMP #### [facility] [address], [place] [address] Dr. Alicia Patel PLT 191 103/ul Normal 150-450 [facility] Comment on above: Performed By: #### T SH, LIPID, T4, FT3, CMP #### [facility] [address], [place] [address] Dr. Alicia Patel RBC 3.71 106/ul Critically low 4.70-6.10 [facility] Comment on above: Performed By: #### T SH, LIPID, T4, FT3, CMP #### [facility] [address], [place] [address] Dr. Alicia Patel WBC 9.0 103/ul Normal 4.0-11.0 [facility] Comment on above: Performed By: #### T SH, LIPID, T4, FT3, CMP #### [facility] [address], [place] [address] ABD/PELVIS WO CONon [...] ILA GALLEGO Date: 2022-08-11 08:38 Normal [facility]28 SARS-CoV-2 (COVID-19) RNA SAVANNAH+probe Ql (Unsp spec) Not detected Normal NOT DETECTED [facility] Comment on [...] for this test is supported by the [employer] of Health and Human Service's declaration that [...] T SH, LIPID, T4, FT3, CMP #### [facility] [address] [place] [address] Dr. Alicia Patel ER URINE PROFILEon 3 Bilirubin Ql (U) Negative Normal NEGATIVE [facility] Comment on above: Performed By: #### T SH, LIPID, T4, FT3, CMP #### [facility] [address] [place] [address] Dr. Alicia Patel Clarity (U) CLEAR Normal CLEAR [facility] Comment on above: Performed By: #### T SH, LIPID, T4, FT3, CMP #### [facility] [address] [place] [address] Dr. Alicia Patel Color (U) LT. YELLOW Normal YELLOW [facility] Comment on above: Performed By: #### T SH, LIPID, T4, FT3, CMP #### [facility] [address] [place], [place] [id number] Dr. Alicia MANTILLA A micrscopic examina tion will be performed if indicated. Normal [facility] Comment on above: Performed By: #### T SH, LIPID, T4, FT3, CMP #### [facility] [address] [address] [address] Alicia Patel Glucose Ql (U) Negative Normal NEGATIVE [facility] Comment on above: Performed By: #### T SH, LIPID, T4, FT3, CMP #### [facility] [address] [place] [address] Dr. Alicia Patel Hemoglobin Ql (U) SMALL Abnormal NEGATIVE [facility] Comment on above: Performed By: #### T SH, LIPID, T4, FT3, CMP #### [facility] [address] [place] [address] Dr. Alicia Patel Ketones Ql (U) Negative Normal NEGATIVE [facility] Comment on above: Performed By: #### T SH, LIPID, T4, FT3, CMP #### [facility] [address] [place] [address] Dr. Alicia Patel LEUKOCYTES Negative Normal NEGATIVE [facility] Comment on above: Performed By: #### T SH, LIPID, T4, FT3, CMP #### [facility] [address] [place] [address] Dr. Alicia Patel Nitrite Ql (U) Negative Normal NEGATIVE [facility] Comment on above: Performed By: #### T SH, LIPID, T4, FT3, CMP #### [facility] [address] [address] [address] Alicia Patel pH (U) 6.0 [pH] Normal 5-9 [facility] Comment on above: Performed By: #### T SH, LIPID, T4, FT3, CMP #### [facility] [address] [place] [address] Dr. Alicia Patel Protein (U) [Mass/Vol] 100 mg/dL Abnormal NEGAT ОЛЕГ/ TRACE [facility] Comment on above: Performed By: #### T SH, LIPID, T4, FT3, CMP #### [facility] [address] [address] [address] Alicia Patel SPEC GRAVITY 1.015 Normal 1.005-<=1. 025 [facility] Comment on above: Performed By: #### T SH, LIPID, T4, FT3, CMP #### [facility] [address] [address] [address] Alicia Patel UR MICRO IND INDICATED Normal [facility] Comment on above: Performed By: #### T SH, LIPID, T4, FT3, CMP #### [facility] [address] [address] [address] Alicia Patel Urobilinogen Qn (U) 0.2 {Wil'U}/dL Normal 0.2 - 1. 0 [facility] Comment on above: Performed By: #### T SH, LIPID, T4, FT3, CMP #### [facility] [address] [place] [address] Dr. Alicia Patel Hepatitis B virus surface Ag [Presence] in Serum or Plasma by ImmunoassayOrdered By: Alicia León on 08-11-2022 HBV surface Ag IA Ql Negative Negative [facility] Hepatitis C virus IgG Ab [Pr esence] in Serum or Plasma by ImmunoassayOrdered By: Alicia León on 08-11-2022 HCV IgG IA Ql Non-Reactive Non Reactive [facility] Hepatitis C virus RNA [Units /volume] (viral load) in Serum or Plasma by SAVANNAH with probOrdered By: Alicia León on 08-11-2022 HCV RNA SAVANNAH+probe Qn N/A [facility] Hepatitis C virus RNA [log u nits/volume] (viral load) in Serum or Plasma by SAVANNAH withOrdered By: Alicia León on 08-11-2022 HCV RNA SAVANNAH+probe [Log units/Vol] N/A [facility] - CoagulationOrde red By: Hiral Interiano on 08-11-2022 PT Coag (PPP) [Time] 12.2 s 9.0-12.9 [facility] Lymphocytes/100 WBC Manual c nt (Bld)Ordered By: Hiral Interiano on 08-11-2022 Lymphocytes/100 WBC (Bld) 5 % 18-42 [facility] Microcytes LM Ql (Bld)Ordere d By: Hiral Interiano on 08-11-2022 Microcytes Ql (Bld) Slight [facility] Monocytes/100 WBC Manual cnt (Bld)Ordered By: Hiral Interiano on 08-11-2022 Monocytes/100 WBC (Bld) 1 % 2-11 [facility] No Panel InformationOrdered By: Alicia León on 08-11-2022 Hepatitis A IgM Antibody Negative Negative [facility] Hepatitis B Core IgM Antibody Negative Negative [facility] Hepatitis C Interpretation See comment . [facility] Comment on above: Not infected with HC V unless early or acute infection issuspected (which may be delayed in an immunocompromisedindividual), or other evidence exists to indicate HCVinfection.Performed at: [facility] [id number] Director: Lee Bob PhD, Phone: [phone] Hepatitis C RNA Quantitative N/A [facility] POINT OF CARE GLUCOSEon 07-28 Glucose [Mass/Vol] 132 mg/dL Critically high 74-106 [facility] Comment on above: Performed By: #### T SH, LIPID, T4, FT3, CMP #### [facility] [address] [place] [address] Dr. Alicia Patel Glucose [Mass/Vol] 117 mg/dL Critically high 74-106 [facility] Comment on above: Performed By: #### T SH, LIPID, T4, FT3, CMP #### [facility] [address] [address] [address] Alicia Patel Glucose [Mass/Vol] 95 mg/dL Normal 74-106 [facility] Comment on above: Performed By: #### P OCGLUC #### [facility] [address] [place] [address] Dr. Alicia Patel PROF CHEM 8 (BAS METB)on Anion gap [Moles/Vol] 29.5 mmol/L Normal [facility] Comment on above: Performed By: #### T SH, LIPID, T4, FT3, CMP #### [facility] [address] [place] [address] Dr. Alicia Patel Calcium [Mass/Vol] 7.7 mg/dL Critically low 8.5-10.1 [facility] Comment on above: Performed By: #### T SH, LIPID, T4, FT3, CMP #### [facility] [address] [place] [address] Dr. Alicia Patel Chloride [Moles/Vol] 102 mmol/L Normal 98-107 [facility] Comment on above: Performed By: #### T SH, LIPID, T4, FT3, CMP #### [facility] [address] [place] [address] Dr. Alicia Patel CO2 [Moles/Vol] 13.5 mmol/L Critically low 21.0-32.0 [facility] Comment on above: Performed By: #### T SH, LIPID, T4, FT3, CMP #### [facility] [address] [place] [address] Dr. Alicia Patel Creatinine [Mass/Vol] 17.89 mg/dL Critically high 0.70-1.3 0 [facility] Comment on above: Performed By: #### T SH, LIPID, T4, FT3, CMP #### [facility] [address] [place] [address] Dr. Alicia Paetl EGFR-AF MONEGASQUE 3 mL/min/1.73m2 Critically low >=60 [facility] Comment on above: Performed By: #### T SH, LIPID, T4, FT3, CMP #### [facility] [address] [place] [address] Dr. Alicia Patel EGFR-NON AF MONEGASQUE 3 mL/min/1.73m2 Critically low >=60 [facility] [facility] Comment on above: Performed By: #### T SH, LIPID, T4, FT3, CMP #### [facility] [address] [place] [address] Dr. Alicia Patel Glucose [Mass/Vol] 105 mg/dL Normal 74-106 [facility] Comment on above: Performed By: #### T SH, LIPID, T4, FT3, CMP #### [facility] [address] [address] [address] Alicia Patel Potassium [Moles/Vol] 7.0 mmol/L Critically high 3.5-5.1 [facility] Comment on above: Performed By: #### T SH, LIPID, T4, FT3, CMP #### [facility] [address] [address] [address] Alicia Patel Sodium [Moles/Vol] 138 mmol/L Normal 136-145 [facility] Comment on above: Performed By: #### T SH, LIPID, T4, FT3, CMP #### [facility] [address] [address] [address] Alicia Patel Urea nitrogen [Mass/Vol] 156.0 mg/dL Critically high 7.0-18.0 [facility] Comment on above: Performed By: #### T SH, LIPID, T4, FT3, CMP #### [facility] [address] [address] [address] Alicia Patel Urea nitrogen/Creatinine [Mass ratio] 8.7 mg/mg Normal [facility] Comment on above: Performed By: #### T SH, LIPID, T4, FT3, CMP #### [facility] [address] [address] [address] Alicia Patel Platelet adequacy [Presence] in Blood by Light microscopyOrdered By: Hiral Interiano on 08-11-2022 Platelets LM Ql (Bld) Normal Normal [facility] Platelet morphology finding [Identifier] in BloodOrdered By: Hiral Interiano on 08-11-2022 Platelet morphology finding Nom (Bld) Normal Normal [facility] Platelet poor plasma interna tional normalized ratio (INR) by coagulation assay (relatOrdered By: Hiral Interiano on 08-11-2022 INR Coag (PPP) [Relative time] 1.0 {INR} [facility] Comment on above: INR Therapeutic [...] on 08-11-2022 Poikilocytosis LM Ql (Bld) Slight [facility] RBC morphologyOrdered By: Donal Interiano on 08-11-2022 RBC morphology finding Nom (Bld) N/A [facility] Segmented neutrophils/100 WB C Manual cnt (Bld)Ordered By: Hiral Interiano on 08-11-2022 Segmented neutrophils/100 WBC (Bld) 94 % 50-70 [facility] Troponin I.cardiac [Mass/vol ume] in Serum or Plasma by High sensitivity methodOrdered By: Hiral Interiano on 08-11-2022 Troponin I.cardiac High sensitivity method [Mass/Vol] 42 pg/mL 0-20 [facility] URINE MICROSCOPIC ONLYon BACTERIA TRACE Abnormal NONE SEEN [facility] Comment on above: Performed By: #### T SH, LIPID, T4, FT3, CMP #### [facility] [address] [place] [address] Dr. Alicia Patel Bacteria identified Cx Nom (U) NOT INDICATED Normal [facility] Comment on above: Performed By: #### T SH, LIPID, T4, FT3, CMP #### [facility] [address] [address] [address] Alicia Patel CAST NONE SEEN Normal NONE SEEN [facility] Comment on above: Performed By: #### T SH, LIPID, T4, FT3, CMP #### [facility] [address] [address] [address] Alicia Patel Crystals LM Nom (Urine sed) NONE SEEN Normal NONE SEEN [facility] Comment on above: Performed By: #### T SH, LIPID, T4, FT3, CMP #### [facility] [address] [address] [address] Alicia Patel Epithelial cells LM Ql (Urine sed) RARE Normal NONE SEEN /RARE [facility] Comment on above: Performed By: #### T SH, LIPID, T4, FT3, CMP #### [facility] [address], [place] [address] Dr. Alicia Patel MUCOUS NONE SEEN Normal NONE SEEN [facility] Comment on above: Performed By: #### T SH, LIPID, T4, FT3, CMP #### [facility] [address] [place], [place] [address] Dr. Alicia Patel RBC 2-5 Abnormal 0-2 [facility] Comment on above: Performed By: #### T SH, LIPID, T4, FT3, CMP #### [facility] [address] [place], [place] [address] Dr. Alicia Patel WBC 2-5 Abnormal NONE SEEN [facility] Comment on above: Performed By: #### T SH, LIPID, T4, FT3, CMP #### [facility] [address], [place] [address] Dr. Alicia Patel XR CHEST 1 Von [...] YOGESH BYERS Date: 2022-08-11 04:27 Normal [facility] Covid-19 PCR (CVDTBH)on SARS-CoV-2 (COVID-19) RNA SAVANNAH+probe Ql (Unsp spec) Not detected Normal NOT DETECTED [facility] Comment on above: Result Comment: This test is not yet approved or cleared by the [place] FDA. When there are no FDA-approved or cleared tests available, and other criteria are met, FDA can make tests available under an emergency access mechanism called an Emergency Use Authorization (EUA). The EUA for this test is supported by the [place] of Health and Human Service's (HHS's) declaration [...] T SH, LIPID, T4, FT3, CMP #### [facility] [address] [place] [address] Dr. Alicia Patel INFLUENZA A AND B [facility] 08-02 [facility] SEE BELOW Normal [facility] Comment on above: Result Comment: Nega tive for Flu A protein angiten. Infection due to Flu A cannot be ruled out. Flu A angiten in the sample may be below the detection limit of the test. Performed By: #### T SH, LIPID, T4, FT3, CMP #### [facility] [address] [place] [address] Dr. Alicia Patel [facility] SEE BELOW Normal [facility] Comment on above: Result Comment: Nega tive for Flu B protein antigen. Infection due to Flu B cannot be ruled out. Flu B antigen in the sample may be below the detection limit of the test. Performed By: #### T SH, LIPID, T4, FT3, CMP #### [facility] [address] [place] [address] Dr. Alicia Patel INFLUENZA A AG Negative Normal NEGATIVE SEE COMMENT [facility] Comment on above: Performed By: #### T SH, LIPID, T4, FT3, CMP #### [facility] [address] [place] [address] Dr. Alicia Patel INFLUENZA B AG Negative Normal NEGATIVE SEE COMMENT [facility] Comment on above: Performed By: #### T SH, LIPID, T4, FT3, CMP #### [facility] [address] [place] [address] Dr. Alicia Patel PTH INTACTon 05-25-2022 PTH, Intact 47 pg/mL Normal 15-65 [facility] Comment on above: Performed By: #### T SH, LIPID, T4, FT3, CMP #### [facility] [address] [place] [address] Dr. Alicia Patel ALBUMINon 05-24-2022 Albumin [Mass/Vol] 3.9 g/dL Normal 3.4-5.0 [facility] Comment on above: Performed By: #### T SH, LIPID, T4, FT3, CMP #### [facility] [address] [place] [address] Dr. Alicia Patel HEMOGRAM AND PLATELon 2021 Hematocrit (Bld) [Volume fraction] 42.1 % Normal 42.0-54.0 [facility] Comment on above: Performed By: #### T SH, LIPID, T4, FT3, CMP #### [facility] [address] [place] [address] Dr. Alicia Patel Hemoglobin (Bld) [Mass/Vol] 14.7 g/dL Normal 14.0-18.0 [facility] Comment on above: Performed By: #### T SH, LIPID, T4, FT3, CMP #### [facility] [address] [place] [address] Dr. Alicia Patel MCH (RBC) [Entitic mass] 33.2 pg Normal 25.9-34.0 [facility] Comment on above: Performed By: #### T SH, LIPID, T4, FT3, CMP #### [facility] [address] [place] [address] Dr. Alicia Patel MCHC (RBC) [Mass/Vol] 34.9 g/dL Normal 29.9-35.2 [facility] Comment on above: Performed By: #### T SH, LIPID, T4, FT3, CMP #### [facility] [address] [place] [address] Dr. Alicia Patel MCV (RBC) [Entitic vol] 95.0 fL Critically high 80.0-94.0 [facility] Comment on above: Performed By: #### T SH, LIPID, T4, FT3, CMP #### [facility] [address] [place] [address] Dr. Alicia Patel PLT 190 103/ul Normal 150-450 [facility] Comment on above: Performed By: #### T SH, LIPID, T4, FT3, CMP #### [facility] [address] [place] [address] Dr. Alicia Patel RBC 4.43 106/ul Critically low 4.70-6.10 [facility] Comment on above: Performed By: #### T SH, LIPID, T4, FT3, CMP #### [facility] [address] [place] [address] Dr. Alicia Patel WBC 7.0 103/ul Normal 4.0-11.0 [facility] Comment on above: Performed By: #### T SH, LIPID, T4, FT3, CMP #### [facility] [address] [place] [address] Dr. Alicia Patel MAGNESIUMon 05-24-2022 Magnesium [Mass/Vol] 1.7 mg/dL Critically low 1.8-2.4 [facility] Comment on above: Performed By: #### T SH, LIPID, T4, FT3, CMP #### [facility] [address] [place] [address] Dr. Alicia Patel PHOSPHORUSon 05-24-2022 Phosphate [Mass/Vol] 3.7 mg/dL Normal 2.6-4.7 [facility] Comment on above: Performed By: #### T SH, LIPID, T4, FT3, CMP #### [facility] [address] [place] [address] Dr. Alicia Patel PROF CHEM 8 (BAS METB)on Anion gap [Moles/Vol] 11.2 mmol/L Normal Th e [facility] Comment on above: Performed By: #### U RTPCR #### [facility] [address] [place] [address] Dr. Alicia Patel Calcium [Mass/Vol] 9.1 mg/dL Normal 8.5-10.1 [facility] Comment on above: Performed By: #### U RTPCR #### [facility] [address] [address] [address] Alicia Patel Chloride [Moles/Vol] 104 mmol/L Normal 98-107 [facility] Comment on above: Performed By: #### U RTPCR #### [facility] [address] [address] [address] Alicia Patel CO2 [Moles/Vol] 29.2 mmol/L Normal 21.0-32.0 [facility] Comment on above: Performed By: #### U RTPCR #### [facility] [address] [address] [address] Alicia Patel Creatinine [Mass/Vol] 1.40 mg/dL Critically high 0.70-1.30 [facility] Comment on above: Performed By: #### U RTPCR #### [facility] [address] [address] [address] Alicia Patel EGFR-AF MONEGASQUE 59 mL/min/1.73m2 Critically low >=60 [facility] Comment on above: Performed By: #### U RTPCR #### [facility] [address] [address] [address] Alicia Patel EGFR-NON AF MONEGASQUE 49 mL/min/1.73m2 Critically low >=60 [facility] Comment on above: Performed By: #### U RTPCR #### [facility] [address] [address] [address] Alicia Patel Glucose [Mass/Vol] 148 mg/dL Critically high 74-106 [facility] Comment on above: Performed By: #### U RTPCR #### [facility] [address] [address] [address] Alicia Patel Potassium [Moles/Vol] 4.4 mmol/L Normal 3.5-5.1 [facility] Comment on above: Performed By: #### U RTPCR #### [facility] [address] [address] [address] Alicia Patel Sodium [Moles/Vol] 140 mmol/L Normal 136-145 [facility] Comment on above: Performed By: #### U RTPCR #### [facility] [address] [address] [address] Alicia Patel Urea nitrogen [Mass/Vol] 16.0 mg/dL Normal 7.0-18.0 [facility] Comment on above: Performed By: #### U RTPCR #### [facility] [address] [address] [address] Alicia Patel Urea nitrogen/Creatinine [Mass ratio] 11.4 mg/mg Normal [facility] Comment on above: Performed By: #### U RTPCR #### [facility] [address] [place] [address] Dr. Alicia Patel UA RANDOM W/MICROSCOPICon BACTERIA NONE SEEN Normal NONE SEEN [facility] Comment on above: Performed By: #### T SH, LIPID, T4, FT3, CMP #### [facility] [address] [place] [address] Dr. Alicia Patel Bilirubin Ql (U) Negative Normal NEGATIVE [facility] Comment on above: Performed By: #### T SH, LIPID, T4, FT3, CMP #### [facility] [address] [place] [address] Dr. Alicia Patel CAST NONE SEEN Normal NONE SEEN [facility] Comment on above: Performed By: #### T SH, LIPID, T4, FT3, CMP #### [facility] [address] [place] [address] Dr. Alicia Patel Clarity (U) CLEAR Normal CLEAR [facility] Comment on above: Performed By: #### T SH, LIPID, T4, FT3, CMP #### [facility] [address] [place] [address] Dr. Alicia Patel Color (U) LT. YELLOW Normal YELLOW [facility] Comment on above: Performed By: #### T SH, LIPID, T4, FT3, CMP #### [facility] [address] [place] [address] Dr. Alicia Patel Crystals LM Nom (Urine sed) NONE SEEN Normal NONE SEEN [facility] Comment on above: Performed By: #### T SH, LIPID, T4, FT3, CMP #### [facility] [address] [address] [address] Alicia Patel Epithelial cells LM Ql (Urine sed) FEW Abnormal NONE SEEN /RARE [facility] Comment on above: Performed By: #### T SH, LIPID, T4, FT3, CMP #### [facility] [address] [address] [address] Alicia Patel Glucose Ql (U) Negative Normal NEGATIVE [facility] Comment on above: Performed By: #### T SH, LIPID, T4, FT3, CMP #### [facility] [address] [address] [address] Alicia Patel Hemoglobin Ql (U) Negative Normal NEGATIVE [facility] Comment on above: Performed By: #### T SH, LIPID, T4, FT3, CMP #### [facility] [address] [place] [address] Dr. Alicia Patel Ketones Ql (U) Negative Normal NEGATIVE [facility] Comment on above: Performed By: #### T SH, LIPID, T4, FT3, CMP #### [facility] [address] [place] [address] Dr. Alicia Patel LEUKOCYTES Negative Normal NEGATIVE [facility] Comment on above: Performed By: #### T SH, LIPID, T4, FT3, CMP #### [facility] [address] [place] [address] Dr. Alicia Patel MUCOUS NONE SEEN Normal NONE SEEN [facility] Comment on above: Performed By: #### T SH, LIPID, T4, FT3, CMP #### [facility] [address] [address] [address] Alicia Patel Nitrite Ql (U) Negative Normal NEGATIVE [facility] Comment on above: Performed By: #### T SH, LIPID, T4, FT3, CMP #### [facility] [address] [place] [address] Dr. Alicia Patel pH (U) 5.5 [pH] Normal 5-9 [facility] Comment on above: Performed By: #### T SH, LIPID, T4, FT3, CMP #### [facility] [address] [place] [address] Dr. Alicia Patel RBC NONE SEEN Abnormal 0-2 [facility] Comment on above: Performed By: #### T SH, LIPID, T4, FT3, CMP #### [facility] [address] [place] [address] Dr. Alicia Patel SPEC GRAVITY 1.020 Normal 1.005-<=1. 025 [facility] Comment on above: Performed By: #### T SH, LIPID, T4, FT3, CMP #### [facility] [address] [place] [address] Dr. Alicia Patel UA PROTEIN Negative Normal NEGATIVE/ TRACE [facility] Comment on above: Performed By: #### T SH, LIPID, T4, FT3, CMP #### [facility] [address] [place] [address] Dr. Alicia Patel Urobilinogen Qn (U) 0.2 {Wil'U}/dL Normal 0.2 - 1. 0 [facility] Comment on above: Performed By: #### T SH, LIPID, T4, FT3, CMP #### [facility] [address] [place] [address] Dr. Alicia Patel WBC NONE SEEN Normal NONE SEEN [facility] Comment on above: Performed By: #### T SH, LIPID, T4, FT3, CMP #### [facility] [address] [place] [address] Dr. Alicia Patel URIC ACID SERUMon 05-24-2022 Urate [Mass/Vol] 5.6 mg/dL Normal 3.5-7.2 [facility] Comment on above: Performed By: #### T SH, LIPID, T4, FT3, CMP #### [facility] [address] [place] [address] Dr. Alicia Patel URINE T PROTEIN CREAT RATIOo n 05-24-2022 Protein (U) [Mass/Vol] 26.0 mg/dL Critically high <=12.0 [facility] Comment on above: Performed By: #### T SH, LIPID, T4, FT3, CMP #### [facility] [address], [place] [address] Dr. Alicia Patel UR PROT CREAT RAT 0.34 Normal [facility] Comment on above: Performed By: #### T SH, LIPID, T4, FT3, CMP #### [facility] [address], [place] [address] Dr. Alicia Patel URINE CREAT 77.39 mg/dL Normal 20.00-300. 00 [facility] Comment on above: Performed By: #### T SH, LIPID, T4, FT3, CMP #### [facility] [address], [place] [address] Dr. Alicia Patel Vital Signs Date Time Vital Sign Value Performing Clinician Facility 06-12-2024 11:27-0500 Blood Pressure Location [email or web address] 06-12-2024 11:27-0500 Diastolic blood pressure 70 mm[Hg] [email or web address] 06-12-2024 11:27-0500 Heart rate 62 /min [email or web address] 06-12-2024 11:27-0500 Systolic blood pressure 145 mm[Hg] [email or web address] 12-20-2023 11:49-0400 Body height 175.26 cm MD Jose Alfaro Work Phone: [facility] 12-20-2023 11:49-0400 Body mass index (BMI) [Ratio] 39.4 kg/m2 MD Jose Alfaro Work Phone: [facility] 12-20-2023 11:49-0400 Body temperature 96.5 [degF] MD Jose Alfaro Work Phone: [facility] 12-20-2023 11:49-0400 Body weight 121.33 kg MD Jose Alfaro Work Phone: [facility] 12-20-2023 11:49-0400 Diastolic blood pressure 74 mm[Hg] MD Jose Alfaro Work Phone: [facility] 12-20-2023 11:49-0400 Heart rate 83 /min MD Jose Alfaro Work Phone: [facility] 12-20-2023 11:49-0400 Respiratory rate 20 /min MD Jose Alfaro Work Phone: [facility] 12-20-2023 11:49-0400 SaO2% (BldA) [Mass fraction] 94 % MD Jose Alfaro Work Phone: [facility] 12-20-2023 11:49-0400 Systolic blood pressure 135 mm[Hg] MD Jose Alfaro Work Phone: [facility] 06-14-2023 11:00-0500 Body height 175.26 cm Alicia Brit Other [facility] Other 06-14-2023 11:00-0500 Body mass index (BMI) [Ratio] 38.51 kg/m2 Alicia Brit Other [facility] Other 06-14-2023 11:00-0500 Body temperature 97.2 [degF] Alicia Brit Other [facility] Other 06-14-2023 11:00-0500 Body weight 118.3 kg Alicia Brit Other [facility] Other 06-14-2023 11:00-0500 Diastolic blood pressure 72 mm[Hg] Alicia Brit Other [facility] Other 06-14-2023 11:00-0500 Respiratory rate 18 /min Alicia Brit Other [facility] Other 06-14-2023 11:00-0500 SaO2% (BldA) [Mass fraction] 95 % Alicia Brit Other [facility] Other 06-14-2023 11:00-0500 Systolic blood pressure 122 mm[Hg] Alicia Brit Other [facility] Other 11-29-2022 10:20-0400 Body height 175.26 cm Alicia Brit Other [facility] Other 11-29-2022 10:20-0400 Body mass index (BMI) [Ratio] 36.77 kg/m2 Alicia Brit Other [facility] Other 11-29-2022 10:20-0400 Body temperature 96.3 [degF] Alicia Brit Other [facility] Other 11-29-2022 10:20-0400 Body weight 112.95 kg Alicia Brit Other [facility] Other 11-29-2022 10:20-0400 Diastolic blood pressure 72 mm[Hg] Alicia Brit Other [facility] Other 11-29-2022 10:20-0400 Respiratory rate 18 /min Alicia Brit Other [facility] Other 11-29-2022 10:20-0400 SaO2% (BldA) [Mass fraction] 96 % Alicia Brit Other [facility] Other 11-29-2022 10:20-0400 Systolic blood pressure 137 mm[Hg] Alicia Brit Other [facility] Other 10-07-2022 17:25-0400 Heart rate 66 /min Ni COOK [facility] 10-07-2022 17:25-0400 SaO2% (BldA) [Mass fraction] 92 % Ni C[facility] 10-07-2022 17:25-0400 Respiratory rate 16 /min Ni COOK [facility] 10-07-2022 17:24-0400 Body temperature 97.7 [degF] Ni OLIVARES [facility] 10-07-2022 17:24-0400 Diastolic blood pressure 74 mm[Hg] Ni COOK [facility] 10-07-2022 17:24-0400 Mean blood pressure 106 mm[Hg] Ni COOK [facility] 10-07-2022 17:24-0400 Systolic blood pressure 170 mm[Hg] Ni COOK [facility] 10-07-2022 16:18-0400 Heart rate 61 /min Ni [facility] 10-07-2022 16:18-0400 SaO2% (BldA) [Mass fraction] 95 % Ni COOK [facility] 10-07-2022 16:17-0400 Diastolic blood pressure 81 mm[Hg] Ni COOK [facility] 10-07-2022 16:17-0400 Mean blood pressure 103 mm[Hg] Ni COOK [facility] 10-07-2022 16:17-0400 Systolic blood pressure 148 mm[Hg] Ni COOK [facility] 10-07-2022 16:17-0400 Respiratory rate 16 /min Ni COOK [facility] 10-07-2022 16:11-0400 Diastolic blood pressure 75 mm[Hg] Ni COOK [facility] 10-07-2022 16:11-0400 Heart rate 58 /min Ni COOK [facility] 10-07-2022 16:11-0400 Mean blood pressure 98 mm[Hg] Ni COOK [facility] 10-07-2022 16:11-0400 Respiratory rate 17 /min Ni [facility] 10-07-2022 16:11-0400 SaO2% (BldA) [Mass fraction] 97 % Ni COOK [facility] 10-07-2022 16:11-0400 Systolic blood pressure 144 mm[Hg] Ni COOK [facility] 10-07-2022 16:00-0400 Mean blood pressure 92 mm[Hg] Ni COOK [facility] 10-07-2022 16:00-0400 Respiratory rate 13 /min Ni COOK [facility] 10-07-2022 15:55-0400 Mean blood pressure 86 mm[Hg] Ni COOK [facility] 10-07-2022 15:55-0400 Respiratory rate 17 /min Ni COOK [facility] 10-07-2022 15:46-0400 Body temperature 98.06 [degF] Ni COOK [facility] 10-07-2022 15:40-0400 Respiratory rate 15 /min Ni COOK [facility] 10-07-2022 10:14-0400 Mean blood pressure 97 mm[Hg] Ni OLIVARES [facility] 10-07-2022 10:14-0400 Blood Pressure Location Ni OLIVARES [facility] 10-07-2022 10:13-0400 Heart rate 64 /min Ni OLIVARES [facility] 10-07-2022 10:12-0400 Body temperature 98.06 [degF] Ni [facility]IVARES [facility] 10-07-2022 10:12-0400 Blood Pressure Location Ni OLIVARES [facility] 09-15-2022 14:40-0400 Body height 175.26 cm Alicia Brit Other [facility] Other 09-15-2022 14:40-0400 Body mass index (BMI) [Ratio] 37.48 kg/m2 Alicia Brit Other [facility] Other 09-15-2022 14:40-0400 Body weight 115.12 kg Alicia Brit Other [facility] Other 09-15-2022 14:40-0400 Diastolic blood pressure 73 mm[Hg] Alicia Brit Other [facility] Other 09-15-2022 14:40-0400 Respiratory rate 18 /min Alicia Brit Other [facility] Other 09-15-2022 14:40-0400 SaO2% (BldA) [Mass fraction] 97 % Alicia Brit Other [facility] Other 09-15-2022 14:40-0400 Systolic blood pressure 138 mm[Hg] Alicia León Other [facility] Other 09-06-2022 10:01-0400 Blood Pressure Location Ni [email or web address] [facility] 09-06-2022 10:01-0400 Diastolic blood pressure 70 mm[Hg] Ni OLIVARES [facility] 09-06-2022 10:01-0400 Heart rate 68 /min Ni [email or web address] [facility] 09-06-2022 10:01-0400 Systolic blood pressure 132 mm[Hg] Ni [email or web address] [facility] 08-15-2022 12:16-0500 Body temperature 97.8 [degF] MD Jose Alfaro Work Phone: [facility] 08-15-2022 12:16-0500 Diastolic blood pressure 92 mm[Hg] MD Jose Alfaro Work Phone: [facility] 08-15-2022 12:16-0500 Heart rate 68 /min MD Jose Alfaro Work Phone: [facility] 08-15-2022 12:16-0500 Respiratory rate 18 /min MD Jose Alfaro Work Phone: [facility] 08-15-2022 12:16-0500 SaO2% (BldA) [Mass fraction] 95 % MD Jose Alfaro Work Phone: [facility] 08-15-2022 12:16-0500 Systolic blood pressure 146 mm[Hg] MD Jose Alfaro Work Phone: [facility] 08-15-2022 05:08-0500 Body weight 118.2 kg MD Jose Alfaro Work Phone: [facility] 08-13-2022 13:10-0500 Inhaled oxygen flow rate 8 L/min MD Jose Alfaro Work Phone: [facility] 08-13-2022 11:54-0500 Body height 177.8 cm MD Jose Alfaro Work Phone: [facility] 08-13-2022 11:54-0500 Body mass index (BMI) [Ratio] 37.3 kg/m2 MD Jose Alfaro Work Phone: [facility] 06-01-2022 11:40-0500 Body height 175.26 cm Alicia Brit Other [facility] Other 06-01-2022 11:40-0500 Body mass index (BMI) [Ratio] 37.77 kg/m2 Alicia Brit Other [facility] Other 06-01-2022 11:40-0500 Body temperature 97.5 [degF] Alicia Brit Other [facility] Other 06-01-2022 11:40-0500 Body weight 116.03 kg Alicia Brit Other [facility] Other 06-01-2022 11:40-0500 Diastolic blood pressure 71 mm[Hg] Alicia Brit Other [facility] Other 06-01-2022 11:40-0500 Respiratory rate 18 /min Alicia Brit Other [facility] Other 06-01-2022 11:40-0500 SaO2% (BldA) [Mass fraction] 93 % Alicia Brit Other [facility] Other 06-01-2022 11:40-0500 Systolic blood pressure 134 mm[Hg] Alicia Brit Other [facility] Other 11-24-2021 11:20-0400 Body height 175.26 cm Alicia Brit Other [facility] Other 11-24-2021 11:20-0400 Body mass index (BMI) [Ratio] 36.26 kg/m2 Alicia Brit Other [facility] Other 11-24-2021 11:20-0400 Body temperature 96.4 [degF] Alicia Brit Other [facility] Other 11-24-2021 11:20-0400 Body weight 111.4 kg Alicia Brit Other [facility] Other 11-24-2021 11:20-0400 Diastolic blood pressure 72 mm[Hg] Alicia Brit Other [facility] Other 11-24-2021 11:20-0400 Respiratory rate 18 /min Alicia Brit Other [facility] Other 11-24-2021 11:20-0400 SaO2% (BldA) [Mass fraction] 95 % Alicia Brit Other [facility] Other 11-24-2021 11:20-0400 Systolic blood pressure 139 mm[Hg] Alicia Brit Other [facility] Other 10-26-2021 09:17-0400 Blood Pressure Location Milton BRAUN [facility] 10-26-2021 09:17-0400 Diastolic blood pressure 69 mm[Hg] Milton BRAUN [facility] 10-26-2021 09:17-0400 Heart rate 64 /min Milton BRAUN [facility] 10-26-2021 09:17-0400 Respiratory rate 16 /min Milton BRAUN [facility] 10-26-2021 09:17-0400 Systolic blood pressure 139 mm[Hg] Milton BRAUN [facility] 05-26-2021 11:00-0500 Body height 175.26 cm Alicia Brit Other [facility] Other 05-26-2021 11:00-0500 Body mass index (BMI) [Ratio] 34.4 kg/m2 Alicia Brit Other [facility] Other 05-26-2021 11:00-0500 Body temperature 96.9 [degF] Alicia Brit Other [facility] Other 05-26-2021 11:00-0500 Body weight 105.69 kg Alicia Brit Other [facility] Other 05-26-2021 11:00-0500 Diastolic blood pressure 80 mm[Hg] Alicia Brit Other [facility] Other 05-26-2021 11:00-0500 Respiratory rate 18 /min Alicia Brit Other [facility] Other 05-26-2021 11:00-0500 SaO2% (BldA) [Mass fraction] 94 % Alicia Brit Other [facility] Other 05-26-2021 11:00-0500 Systolic blood pressure 136 mm[Hg] Alicia Brti Other [facility] Other Encounters Encounter Date Encounter Type Care Provider Facility Start: 12-10-2024 ambulatory Ni OLIVARES Facility :[facility] Start: 06-12-2024 End: 06-12-2024 ambulatory Ni OLIVARES Facility:[facility] Start: 06-12-2024 End: 06-12-2024 Patient encounter procedure Ni OLIVARES [facility] [place] Start: 05-21-2024 End: 05-21-[address] [facility] Start: 12-20-2023 End: 12-20-2023 ambulatory MD Jose Alfaro Work Phone: [facility] Work Phone: Start: 12-20-2023 End: 12-20-2023 Patient encounter procedure MD Jose Alfaro Work Phone: [facility] Work Phone: Start: 12-14-2023 Non-patient / Non-visit MD Annalisa Alfaro Work Phone: [facility] Work Phone: Start: 11-01-2023 End: 11-01-2023 ambulatory [facility] Start: 10-26-2023 End: 10-26-2023 ambulatory JENNIFER DRISCOLL Not Available Start: 10-18-2023 End: 10-18-2023 ambulatory MD Jose Alfaro Work Phone: [facility] Work Phone: Start: 10-18-2023 End: 10-18-2023 Departed Referred MD Jose Alfaro Work Phone: [facility] Start: 09-12-2023 End: 09-12-2023 ambulatory JENNIFER AMERICO Not Available Start: 08-23-2023 End: [facility] Start: 07-02-2023 End: 07-02-2023 Patient encounter procedure MD Jose Alfaro Work Phone: [facility] [place] Work Phone: Start: 07-02-2023 End: 07-02-2023 ambulatory MD Jose Alfaro Work Phone: [facility] Work Phone: Start: 06-28-2023 End: 06-28-2023 Patient encounter procedure MD Jose Alfaro Work Phone: [facility] [place] Work Phone: Start: 06-28-2023 End: 06-28-2023 ambulatory MD Jose Alfaro Work Phone: [facility] Work Phone: Start: 06-16-2023 End: 06-16-2023 Patient encounter procedure MD Jose Alfaro Work Phone: [facility] [place] Work Phone: Start: 06-16-2023 End: 06-16-2023 ambulatory MD Jose Alfaro Work Phone: [facility] Work Phone: Start: 06-14-2023 End: 06-14-2023 ambulatory Alicia Brit Other [facility] Other Start: 06-14-2023 Office outpatient vi sit 25 minutes Alicia Brit [facility] Start: 06-14-2023 End: 06-14-2023 Patient encounter procedure Ni OLIVARES [facility] [place] Start: 12-20-2022 End: 12-20-2022 Patient encounter procedure Ni OLIVARES [facility] Start: 11-29-2022 End: 11-29-2022 ambulatory Alicia Brit Other [facility] Other Start: 11-29-2022 Office outpatient vi sit 25 minutes Alicia Brit [facility] Start: 11-10-2022 End: 11-24-[address] JOSE ALFARO . Facility:[facility] Start: 11-08-2022 End: 11-08-[address] JOSE ALFARO . Facility:[facility] Start: 11-06-2022 End: 11-07-[address] JOSE ALFARO . Facility:[facility] Start: 10-29-2022 End: 10-29-2022 Patient encounter procedure Milton BRAUN [facility] [place] Start: 10-26-2022 End: 10-27-2022 ambulatory IRIS CORONEL Facility:[facility] Start: 10-22-2022 End: 10-23-[address] MILTON BRAUN . Facility:[facility] Start: 10-15-2022 End: 10-16-[address] JOSE ALFARO . Facility:[facility] Start: 10-14-2022 End: 10-15-2022 ambulatory IRIS CORONEL Facility:[facility] Start: 10-07-2022 End: 10-07-2022 Admission to same day surgery center Ni OLIVARES [facility] Start: 09-15-2022 End: 09-15-2022 ambulatory Alicia Brit Other [facility] Other Start: 09-15-2022 Office outpatient vi sit 25 minutes Alicia Brit [facility] Start: 09-14-2022 ambulatory Facility:1 [id number] Start: 09-13-2022 End: 09-14-2022 ambulatory ALICIA BRIT Facility:[facility] Start: 09-06-2022 End: 09-06-2022 Patient encounter procedure Ni OLIVARES [facility] Start: 09-01-2022 End: 09-02-[address] NI OLIVARES Facility:[facility] Start: 08-24-2022 End: 08-25-[address] JOSE ALFARO . Facility:[facility] Start: 08-22-2022 End: 08-22-[address] JOSE ALFARO . Facility:[facility] Start: 08-21-2022 End: 08-22-[address] JOSE ALFARO . Facility:[facility] Start: 08-18-2022 End: 08-19-2022 ambulatory ALICIA BRIT Facility:[facility] Start: 08-11-2022 ambulatory Facility:[facility] Start: 08-11-2022 Patient encounter status MD Iglesias Work Phone: [facility] Start: 08-11-2022 End: 08-15-2022 Encounter for preprocedural cardiovascular examination MD Jose Alfaro Work Phone: [facility] Start: 08-11-2022 End: 08-15-2022 Evaluation and management of inpatient MD Jose Alfaro Work Phone: [facility] Work Phone: Start: 08-11-2022 End: 08-11-2022 ambulatory THADDEUS DAUGHERTY Facility:[facility] Start: 08-02-2022 End: 08-02-[address] JOSE ALFARO . Facility:[facility] Start: 07-08-2022 End: 07-23-[address] JOSE ALFARO . Facility:[facility] Start: 06-01-2022 End: 06-01-2022 ambulatory Alicia Brit Other [facility] Other Start: 06-01-2022 Office outpatient vi sit 25 minutes Alicia Brit [facility] Start: 05-24-2022 End: 05-25-2022 ambulatory ALICIA BRIT Facility:[facility] Start: 02-03-2022 End: 02-04-[address] JOSE ALFARO . Facility:[facility] Start: 11-24-2021 End: 11-24-2021 ambulatory Alicia Brit Other [facility] Other Start: 11-24-2021 Office outpatient vi sit 25 minutes Alicia Brit [facility] Start: 10-26-2021 End: 10-26-2021 Patient encounter procedure Milton BRAUN [facility] Start: 05-26-2021 End: 05-26-2021 ambulatory Alicia Brit Other [facility] Other Start: 05-26-2021 Office outpatient vi sit 25 minutes Alicia Brit [facility] Procedures Date Procedure Procedure Detail Performing Clinician Start: 06-16-2023 Ultrasonography of b ilateral kidneys MD Jose Alfaro Work Phone: Start: 12-20-2022 Cystoscopic removal of ureteric stent Ni OLIVARES Start: 12-02-2022 Cystoscopy Ni BULL Start: 11-06-2022 PSA screening ALICIA QAD IR Comment on above: Performed By: #### T SH, LIPID, T4, FT3, CMP #### [facility] [address] [address] [address] Alicia Patel Start: 10-07-2022 Extracorporeal shock wave lithotripsy of calculus of kidney Ni OLIVARES Start: 08-21-2022 PSA screening BEN DEVRIES Comment on above: Performed By: #### P SAD #### [facility] [address] [place] [address] Dr. Alicia Patel Start: 08-13-2022 Cystoscopy MD Jose Alfaro Work Phone: Start: 08-11-2022 Plain chest X-ray MD Iglesias Work Phone: Start: 08-01-2019 Transurethral prostatectomy Miltonisaac BRAUN Start: 07-04-2019 Biopsy of prostate Rohan BRAUN Start: 06-27-2019 cystoscopy, bilatera l, ureteroscopy, laser lithotripsy Miltonisaac BRAUN ear surgery Milton BRAUN ear surgery Ni OLIVARES Plan of Treatment Date Care Activity Detail Author Start: 08-15-2022 [facility] Start: 08-14-2022 Microbial culture of sputum [facility] Start: 08-14-2022 Aerobic Culture Aerobic Culture [facility] Start: 08-14-2022 Investigation of tra nsfusion reaction Gram Stain [facility] Start: 08-11-2022 Hospital admission [facility] Start: 08-11-2022 Referral to allergy and immunology chief [facility] Start: 08-11-2022 Referral to manager diversity [facility] Start: 08-11-2022 Referral to urologist [facility] CT Chest WO contrast [facility] Patient referral [facility] Work Phone: Renal function 1999 panel - Serum or Plasma [facility] Renal function 1999 panel - Serum or Plasma [facility] Immunizations Immunization Date Immunization Notes Care Provider Fa cility 03-06-2024 influenza virus vaccine, unspecified formulation Ni OLIVARES [facility] 05-02-2023 pneumococcal 20-marco nt conjugate vaccine Ni OLIVARES [facility] 05-02-2023 tetanus toxoid, redu martha diphtheria toxoid, and acellular pertussis vaccine, adsorbed Ni OLIVARES [facility] 03-29-2022 SARS-CoV-2 (COVID-19 ) [id number] Ni OLIVARES [facility] 05-18-2021 SARS-CoV-2 (COVID-19 ) Ad26 vaccine, recombinant Ni OLIVARES [facility] 03-30-2021 influenza virus vaccine, unspecified formulation Ni OLIVARES [facility] 09-01-2020 SARS-CoV-2 (COVID-19 ) Ad26 vaccine, recombinant Ni OLIVARES [facility] 06-27-2020 SARS-CoV-2 (COVID-19 ) Ad26 vaccine, recombinant Milton BRANU [facility] [place] 04-18-2020 influenza virus vaccine, unspecified formulation Ni OLIVARES [facility] 02-05-2020 zoster vaccine recombinant Ni OLIVARES [facility] 12-06-2019 zoster vaccine recombinant Ni OLIVARES [facility] 04-04-2019 influenza virus vaccine, unspecified formulation Milton BRAUN [facility] [place] 04-05-2017 influenza virus vaccine, unspecified formulation Ni OLIVARES [facility] 04-05-2017 pneumococcal conjuga te vaccine, 13 valent Ni OLIVARES [facility] 04-12-2016 influenza, unspecifi ed formulation Ni OLIVARES [facility] Payers Date Payer Category Payer Self-pay [id number] 1959 Private Health Insurance [id number] 1959 Private Health Insurance [id number] 1942 Unknown [id number] 2.16.840.1.281354.3.579.2.356 1942 Unknown [id number] 2.16.840.1.627265.3.579.2.593 1942 Unknown [id number] 2.16.840.1.428054.3.579.2.593 1942 Unknown [id number] 2.16.840.1.249310.3.579.2.593 1942 Unknown [id number] 2.16.840.1.270336.3.579.2.593 1942 Unknown [id number] 2.16.840.1.459236.3.579.2.593 1942 Unknown [id number] 2.16.840.1.643878.3.579.2.593 1942 Unknown [id number] 2.16.840.1.402938.3.579.2.593 1942 Unknown [id number] 2.16.840.1.323452.3.579.2.593 1942 Unknown [id number] 2.16.840.1.517526.3.579.2.593 1942 Unknown [id number] 2.16.840.1.033426.3.579.2.593 1942 Unknown [id number] 2.16.840.1.339360.3.579.2.593 1942 Unknown [id number] 2.16.840.1.557299.3.579.2.593 1942 Unknown [id number] 2.16.840.1.560295.3.579.2.593 1942 Unknown [id number] 2.16.840.1.786718.3.579.2.593 1942 Unknown [id number] 2.16.840.1.892174.3.579.2.593 1942 Unknown [id number] 2.16.840.1.915143.3.579.2.593 1942 Unknown [id number] 2.16.840.1.183833.3.579.2.593 1942 Unknown [id number] 2.16.840.1.621877.3.579.2.593 1942 Unknown [id number] 2.16.840.1.269553.3.579.2.593 1942 Unknown [id number] 2.16.840.1.825464.3.579.2.1259 1942 Unknown [id number] 2.16.840.1.784077.3.579.2.1259 1942 Unknown [id number] 2.16.840.1.319420.3.579.2.727 1943 Unknown [id number] 2.16.840.1.510539.3.579.2.727 Medicare [id number] 2.16.8 40.1.515455.19 Medicare Medicare [id number] Medicare [id number] 2.1 6.840.1.431070.19 Unknown Hussein BC/BS [id number] Unknown [id number] 2.16.840.1.124353.3.579.2.531 Unknown [id number] 2.16.840.1.962807.3.579.2.531 Unknown [id number] 2.16.840.1.317348.3.579.2.531 Unknown [id number] 2.16.840.1.171582.3.579.2.531 Social History Date Type Detail Facility Start: 08-18-2020 End: 06-12-2024 Tobacco smoking status Ex-smoker (finding) [facility] Other Comment on above: quit in 1978 Sex Assigned At Male [facility] Other Start: 1940 Sex Assigned At Male [facility] Tobacco smoking status Never [facility] Comment on above: quit in 1978 Medical Equipment Procedure Code Equipment Code Equipment Origin al Text Equipment Identifier Dates Cystoscopy, with ureteral calculus manipulation and stent placement Polymeric ureteral stent [id number] FDA Start: 06-15-2019 Cystoscopy, with ureteral calculus manipulation and stent placement Polymeric ureteral stent ()[id number] FDA Start: 06-15-2019 Cystoscopy, with ureteral calculus manipulation and stent placement Polymeric ureteral stent ()[id number] FDA Start: 08-13-2022 Biopsy, prostate, with US guidance Polymeric ureteral stent ()[id number] FDA Start: 07-04-2019 CYSTOSCOPY URETEROSCOPY Ni OLIVARES MD 12/02/22 Unknown Ureter R {[id number] {[id number] FDA Start: 12-02-2022 Goals Date Patient Goal Desired Activity /State Functional Status Date Assessment Result Facility 06-12-2024 Functional Status N/A [facility] 12-20-2022 Functional Status N/A [facility] 09-06-2022 Functional Status N/A [facility] 08-15-2022 Functional status Patient at Baseline [facility] Work Phone: Mental Status Date Assessment Result Facility 08-15-2022 Cognitive function Cognitive Sta tus Patient at Baseline [facility] Work Phone: Clinical Notes 05-26-2021 to 06-12-2024 Note Date & Type Note Facility 06-12-2024 Hospital Discharge instructions Patient Education 06/12/2024 11:45:49 Dietary Guidelines to Help Prevent Kidney Stones [...] calcium at each meal. Foods that contain 200 500 mg of calcium a serving include: ?8 oz (237 mL) of milk, abhvmqh-wgyrdkzaaiyz-uikae milk, and calcium-fortifiedfruit juice. Calcium-fortified means that [...] to add their own salt to taste. Use vegetable protein, such as beans, textured vegetable protein (TVP), or tofu, instead of meat in pasta, casseroles, and soups. Meal planning Eat less salt, if told by your dietitian. To do this: ?Avoid eating processed or pre-made food. ?Avoid eating fast food. Eat less animal protein, including cheese, meat, poultry, or fish, if told by your dietitian. To do this: ?Limit the number of times you have [...] ?Spinach (cooked), rhubarb, beets, sweet potatoes, and Citizen Of [place] chard. ?Peanuts. ?Potato chips, nicaraguan fries, and baked potatoes with skin on. ?Nuts and nut products. ?Chocolate. If you regularly take a diuretic medicine, make sure to eat at least 1 or 2 servings of fruits or vegetables that are high in potassium each day. These include: ?Avocado. ?Banana. ?Hartshorn, prune, carrot, or tomato juice. ?Baked potato. [...] magnesium, fish oil, or vitamin B6. Take svxq-zic-tfjeird and prescription medicines only as told by [...] Casseroles. Pizza. Lasagna. Frozen meals. Potato chips. Italian fries. The items listed above may not be a complete list of foods and beverages you should limit. Contact a dietitian for more information. What foods should I avoid? Talk to your dietitian about specific foods you should avoid based on the type of kidney stones you have and your overall health. Fruits Grapefruit. The item listed above may not be a complete list of foods and beverages you should avoid. Contact a dietitian for more information. Summary Kidney stones are [...] provider. Document Revised: 09/23/2022 Document Reviewed: 09/23/2022 [employer] Patient Education 2023 [employer]. Follow Up Care 06/14/2023 09:52:06 With:MARSHALL OLIVEROS, Ni Garcia, URL Address: [facility] [place] [place] [facility] [place] [id number]- When: Unknown [facility] [place] 06-12-2024 Note Patient Education Nephrology Dietary Guidelines to Help [...] for following this plan? Reading food labels ??? Choose foods with no salt added or low-salt labels. Limit your salt (sodium) intake to less than 1,500 mg a day. ??? Choose foods with calcium for each meal and snack. Try to eat about 300 mg of calcium at each meal. Foods that contain 200?500 mg of calcium a serving include: ? 8 oz (237 mL) of milk, eabzkfs-ykgtnxobfjyh-okdua milk, and calcium-fortifiedfruit juice. Calcium-fortified means that [...] much calcium is recommended for you. Shopping ??? Buy plenty of fresh fruits and vegetables. Most people do not need to avoid fruits and vegetables, even if these foods contain nutrients that may contribute to kidney stones. ??? When shopping for convenience foods, choose: ? Whole pieces of fruit. ? Pre-made salads with dressing on the side. ? Low-fat fruit and yogurt smoothies. ??? Avoid buying frozen meals or prepared deli foods. These can be high in sodium. ??? Look for foods with live cultures, such as yogurt and kefir. ??? Choose high-fiber grains, such as whole-wheat breads, oat bran, and wheat cereals. Cooking ??? Do not add salt to food when cooking. Place a salt shaker on the table and allow each person to add their own salt to taste. ??? Use vegetable protein, such as beans, textured vegetable protein (TVP), or tofu, instead of meat in pasta, casseroles, and soups. Meal planning ??? Eat less salt, if told by your dietitian. To do this: ? Avoid eating processed or pre-made food. ? Avoid eating fast food. ??? Eat less animal protein, including cheese, meat, [...] size of the palm of your hand. ??? Eat at least five servings of fresh fruits and vegetables each day. To do this: ? Keep fruits and vegetables on hand for snacks. ? Eat one piece of fruit or a handful of berries with breakfast. ? Have a salad and fruit at lunch. ? Have two kinds of vegetables at dinner. ??? You may be told to limit foods that are high in a substance called oxalate. These include: ? Spinach (cooked), rhubarb, beets, sweet potatoes, and Citizen Of [place] chard. ? Peanuts. ? Potato chips, nicaraguan fries, and baked potatoes with skin on. ? Nuts and nut products. ? Chocolate. ??? If you regularly take a diuretic medicine, make sure to eat at least 1 or 2 servings of fruits or vegetables that are high in potassium each day. These include: ? Avocado. ? Banana. ? Hartshorn, prune, carrot, or tomato juice. ? Baked potato. ? Cabbage. ? Beans and split peas. Lifestyle ??? Drink enough fluid to keep your urine pale yellow. This is the most important thing you can do. Spread your fluid intake throughout the day. ??? If you drink alcohol: ? Limit how [...] oz glass of hard liquor (44 mL). ??? Lose weight if told by your health care provider. Work with your dietitian to find an eating plan and weight loss strategies that work best for you. General information ??? Talk to your health care provider and [...] as magnesium, fish oil, or vitamin B6. ??? Take pedl-pat-ancvhvu and prescription medicines only as told by your health (more content not included)... [facility] 05-21-2024 Note [place] [facility] Subjective Victorino Smyth is a [...] March of 2013, and then developed acute AR related to ISR of the LAD stent on 09/28/2016 and underwent emergent Promus JOSE RAMON stent to the LAD at [facility], was on Brilinta but currently on aspirin [...] Allergies Allergies All (more content not included)... [facility] 11-01-2023 Note Patient here for 3 [...] All other systems reviewed and are negative. [facility] 11-01-2023 Note Cardiovascular Medic [facility] SUBJECTIVE Chief Complaint Patient presents with Coronary Artery Disease Hypertension Victorino Smyth is a 83 y.o. male here for follow-up. HPI PMHx: CAD, HLD, HTN, COVID 07/2023 -CAD and drug eluting stenting of LAD in March of 2013, and then developed acute AR related to ISR of the LAD stent on 09/28/2016 and underwent emergent Promus JOSE RAMON stent to the LAD at [facility], was on Brilinta but currently on aspirin [...] leg: Edema present. (more content not included)... [facility] 08-23-2023 Note Cardiovascular Medic in[facility] [place] [facility] SUBJECTIVE No chief complaint on file. Victorino Smyth is a 83 y.o. male here for follow-up. Patient here for 6 mo follow up CAD, hypertension, and hyperlipidemia. He was discharged from [facility] a few weeks ago for Covid-19. Feels much better and is still regaining his strength. Denies chest pain, palpitations, and lightheadedness/syncope. HPI PMHx: CAD, HLD, HTN -CAD and drug eluting stenting of LAD in March of 2013, and then developed acute AR related to ISR of the LAD stent on 09/28/2016 and underwent emergent Promus JOSE RAMON stent to the LAD at [facility], was on Brilinta but currently on aspirin [...] Cardiovascular: Rate an (more content not included)... [facility] 08-23-2023 Note Patient here for 6 m o follow up CAD, hypertension, and hyperlipidemia. He was discharged from [facility] a few weeks ago for Covid-19. Feels much better and is still regaining his strength. Denies chest pain, palpitations, and lightheadedness/syncope. Patient states his BP in the mornings before medications has been running around 100/55. Review of Systems Cardiovascular: Positive for dyspnea on exertion. Musculoskeletal: Positive for arthritis, back pain and joint pain. All other systems reviewed and are negative. 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 [facility] Other 12-19-2023 Hospital Discharge instructions Patient Education [...] include: ?8 oz (237 mL) of milk, rfaylxy-lxpfamooiaum-oabpd milk, and calcium- fortifiedfruit juice. Calcium-fortified means [...] ?Spinach (cooked), rhubarb, beets, sweet potatoes, and Citizen Of [place] chard. ?Peanuts. ?Potato chips, nicaraguan fries, and baked potatoes with skin on. ?Nuts and nut products. ?Chocolate. If you regularly take a diuretic medicine, make sure to eat at least 1 or 2 servings of fruits or vegetables that are high in potassium each day. These include: ?Avocado. ?Banana. ?[place], prune, carrot, or tomato juice. ?Baked potato. [...] magnesium, fish oil, or vitamin B6. Take ltna-zfs-xvkpexi and prescription medicines only as told by [...] Casseroles. Pizza. Lasagna. Frozen meals. Potato chips. Italian fries. The items listed above may not [...] provider. Document Revised: 09/23/2022 Document Reviewed: 09/23/2022 [employer] Patient Education 2022 [employer]. Follow Up Care 02/04/2023 14:47:08 With:MARSHALL OLIVEROS, Ni Garcia, URL Address: [address] [place], [place] [id number]- When: Unknown [facility] [place] [id number] Hospital Discharge instructions Patient Education 12/20/2022 16:27:08 [...] Up Care 12/07/2022 13:42:13 With:Ni MARSHALL Address: [facility] [address] [place], [place] [id number] [facility] (1) When:6 months Comments:Call for [...] those arrangements as well.Have a great day. [facility]06-05-2023 Evaluation note* Encounter Date Diagnosis Assessment Notes Treatment Notes Treatment Clinical Notes Nov, Diabetes mellitus wi th chronic kidney disease (ICD-10 - E11.22) He has sub-zyrgsrv-nukp ndent type 2 diabetes and currently takes [...] and has normal B12 and folate level. [facility] Other 04-13-2023 Hospital Discharge instructions Patient Education 10/07/2022 16:31:27 [...] Follow these instructions at home: Medicines Take yvzw-yfb-aaweujk and prescription medicines only as told by [...] 07/02/2008 Document Revised: 09/24/2019 Document Reviewed: 05/04/2017 [employer] Patient Education 2020 [employer]. Follow Up Care 09/06/2022 10:38:13 With:Ni OLIVARES Address: [address] Business (1) When: Unknown Comments:We were able [...] prior to considering any other anesthesia procedures. [place] [id number] Evaluation + Plan noteExtracted from: Title:CSB post op Author:Timothy Pittman MD Date:10/07/22 Plan Transfer/Discharge: Transfer/Discharge Discharge when meets criteria ( To home ). Extracted from: Title:CSB GA Author:Timothy Pittman MD Date:10/07/22 Plan [place] [employer] Anesthesiologists (ASA) physical status classification: Class III. Anesthetic Preoperative Plan: Anesthesia General. Future Appointments Appointment Date:10/29/2022 08:45:00 AM Scheduled Provider:Milton BRAUN MD Location:[facility] Appointment Type:URO Office Visit [facility]03-22-2023 Evaluation note* Encounter Date Diagnosis Assessment Notes Treatment Notes Treatment Clinical Notes Aug, Diabetes mellitus wi th chronic kidney disease (ICD-10 - E11.22) He has cdd-atsjpmf-xjax ndent type 2 diabetes and currently takes [...] have advised him to adequately hydrate himself. [facility] Other 03-13-2023 Hospital Discharge instructions Patient Education 09/06/2022 10:27:16 Kidney Stones, Zzkl-ve-Jxjw Kidney Stones Kidney stones are rock-like masses [...] Follow these instructions at home: Medicines Take xeyq-htk-tbleccu and prescription medicines only as told by [...] 11/29/2008 Document Revised: 10/30/2019 Document Reviewed: 10/30/2019 [employer] Patient Education 2019 [employer]. Follow Up Care 08/17/2022 09:18:37 With:MARSHALL OLIVEROS, Ni Garcia, URL Address: [address] [place] [address]- When: Unknown [facility] 02-19-2023 Discharge summary Author Hiral Interiano [facility] August 15, 2022 1:50pm Note Date/Time August 15, 2022 1:50pm [facility] [address] [place] [id number] Discharge Summary Signed Patient: Victorino Smyth MR#: [id number] : 1940 Acct:[id number] Age/Sex: 82 / M Adm Date: 3 Loc: Room: [address] [place] [address]: Hiral Interiano MD Copies to: MD Hiral James MD~ Providers Date of Discharge: 08/15/22 Discharging Provider: Hiral Interiano Primary Care Provider: Jose Alfaro Consults: 08/11/22 13:41 Consult to Cardiology [...] history of nephrolithiasis. He initially presented to [facility] ER with complaint of hypoglycemia and was found to have severe renal failure along with metabolic acidosis and hyperkalemia. CT scan at [facility] showed atrophic left kidney with obstructing stone in the right ureteropelvic junction. Patient was transferred to [facility] for further intervention. On arrival [...] is also advised to follow-up with his allergy and immunology chief in 4-week. CT scan at [facility] also showed 0.8 cm nodule [...] Low-Cholesterol Additional Instructions: Follow-up with your Primary Scanning Clerk in 4 weeks. Avoid NSAIDs for pain [...] Location: Determined by Patient Ordered By: Alicia León Follow Up: Ni Olivares MD [Active Staff] - (Please call my office to arrange for an office visit with a kidney ultrasound obtained prior to the office visit. My office will have to send an order to arrange this. ) Jose Alfaro MD [Primary Care Provider] - (Call office on Tuesday to schedule follow-up with your Primary Care Provider in 3-5 days. ) Alicia León MD [Active Staff] - (Call office on Tuesday to schedule follow-up with [employer]. ) Documented By: Hiral Interiano MD 08/15/22 4491 Signed By: <Electronically signed by Hiral Interiano MD> 08/15/22 1350 [facility] Work Phone: 1(198) 434-343702-19-2023 Progress note Author Alicia León [facility] August 15, 2022 12:01pm Note Date/Time August 15, 2022 12:01pm [facility] [address] [place], [place] [id number] Nephrology Progress Note Signed Patient: Victorino Smyth MR#: [id number] : 1940 Acct:[id number] Age/Sex: 82 / M Adm Date: 3 Loc: 4N Room: [id number] Type: ADM IN Attending Dr: Hiral Interiano MD Copies to: ~ Date of Service: 08/15/2022 Subjective Subjective Narrative: This is a 82-year-old male with a medical history of coronary artery disease s/pPCI, nephrolithiasis, CKD, diabetes mellitus, hypertension, dyslipidemia was presented to the emergency room of [facility] for generalized weakness and low urine output. On evaluation emergency room patient was found to have a life- threatening hyperkalemia with serum potassium 7 mmol/L, acute kidney injurywith elevated serum creatinine 17.8 mg/dL, metabolic acidosis serum bicarbonate 13.5 mmol/L. He was given insulin D50 calcium gluconate in the [place] emergency room. He had a CAT scan abdomen pelvis done which showed obstructive kidney stones in the right UPJ and total atrophy of the left kidney. Case was discussed with the on-call urologist Dr. Olivares and recommended patient needs to be n.p.o. for surgical intervention. He was transferred to [facility] for further care. Patient is history of CKD due to the longstanding DM, HTN and recurrent KELSEA with baseline serum creatinine 1.4 to 1.6 mg/dL. He follows in my office for his CKD care. Patient after arrival at the [facility] hada repeat labs done which showed persistent [...] visible mass Skin: No rashes or bruises CERTIFIED MAINTENANCE WELDER: Awake,Alert, following simple command Musculoskeletal: No joint [...] Tablet) 10 mg PO DAILY [facility] Stop: 08/16/23 08:59 Aspirin (Aspirin 81 Mg Tablet.Dr) 81 mg PO DAILY [facility] Stop: 08/12/23 08:59 Last Admin: 08/15/22 09:45 Dose: 81 mg Atorvastatin Calcium (Atorvastatin 40 Mg Tablet) 40 mg PO HS [facility] Stop: 08/11/23 21:59 Last Admin: 08/14/22 21:08 Dose: 40 mg Dextrose (Dextrose 50% In Water 25 Gm/50 Ml Syringe) 0 gm IV-PUSH PRN PRN PRN Reason: Hypoglycemia Stop: 08/11/23 14:01 Doxycycline Hyclate (Doxycycline Hyclate 100 Mg Tablet) 100 mg PO BID [facility] Stop: 08/18/22 20:59 Last Admin: 08/15/22 09:45 [...] Insuln.Pen) 0 units SUBCUT TID.WM.HS [facility]; Protocol Stop: 08/11/23 16:59 Last Admin: 08/15/22 09:46 Dose: 5 units Insulin Glargine (Insulin Glargine 300 Units/3 Ml Insuln.Pen) 5 units SUBCUT DAILY [facility] Stop: 08/13/23 08:59 Last Admin: 08/15/22 09:47 Dose: 5 units Melatonin (Melatonin 5 Mg Tablet) 5 mg PO QHS PRN PRN Reason: insomnia Stop: 08/14/23 21:59 Last Admin: 08/14/22 21:08 Dose: 5 mg Metoprolol Tartrate (Metoprolol Tartrate 50 Mg Tablet) 50 mg PO BID [facility] Stop: 08/11/23 20:59 Last Admin: 08/15/22 09:45 [...] he can call office. Documented By: Alicia León MD 08/15/22 1153 Signed By: <Electronically signed by Alicia León MD> 08/15/22 1202 [facility] Work Phone: 1(394) 123-339202-19-2023 Progress note Author Cade Alvarez [facility] August 15, 2022 11:31am Note Date/Time August 15, 2022 11:31am [facility] [address] [place] [address] Cardiology Progress Note Signed Patient: Victorino Smyth MR#: [id number] : 1940 Acct:[id number] Age/Sex: 82 / M Adm Date: 3 Loc: 4N Room: [address] [place] [address] Type: ADM IN Attending Dr: Hiral Interiano [...] patient has cardiology follow-up with his primary allergy and immunology chief in [place] within 4 weeks of discharge. (2) CAD [...] 08/15/22 1129 Signed By: <Electronically signed by Cdae Alvarez MD> 08/15/22 1131 [facility] Work Phone: 1(897) 665-182102-18-2023 Progress note Author Hiral Interiano [facility] August 14, 2022 2:57pm Note Date/Time August 14, 2022 2:49pm [facility] [address] [place] [address] Hospitalist Progress Note Signed Patient: Victorino Smyth MR#: [id number] : 1940 Acct:[id number] Age/Sex: 82 / M Adm Date: 3 Loc: 4N Room: 0S0194-9 Type: ADM IN Attending Dr: Hiral Interiano [...] 08/11/23 16:59 Not Given TID.WM.HS [facility] Protocol Insulin Glargine 5 units 08/13/22 09:00 [...] <Electronically signed by Hiral Interiano MD> 08/14/22 2711 [facility] Work Phone: 1([phone]) 308-290302-18-2023 Progress note Author Alicia León [facility] August 14, 2022 11:55am Note Date/Time August 14, 2022 11:55am [facility] [address] [place], [place] [id number] Nephrology Progress Note Signed Patient: Victorino Smyth MR#: [id number] : 1940 Acct:[id number] Age/Sex: 82 / M Adm Date: 3 Loc: 4N Room: [id number] Type: ADM IN Attending Dr: Hiral Interiano MD Copies to: ~ Date of Service: 08/14/2022 Subjective Subjective Narrative: This is a 82-year-old male with a medical history of coronary artery disease s/pPCI, nephrolithiasis, CKD, diabetes mellitus, hypertension, dyslipidemia was presented to the emergency room of [facility] for generalized weakness and low urine output. On evaluation emergency room patient was found to have a life- threatening hyperkalemia with serum potassium 7 mmol/L, acute kidney injurywith elevated serum creatinine 17.8 mg/dL, metabolic acidosis serum bicarbonate 13.5 mmol/L. He was given insulin D50 calcium gluconate in the [place] emergency room. He had a CAT scan abdomen pelvis done which showed obstructive kidney stones in the right UPJ and total atrophy of the left kidney. Case was discussed with the on-call urologist Dr. Olivares and recommended patient needs to be n.p.o. for surgical intervention. He was transferred to [facility] for further care. Patient is history of CKD due to the longstanding DM, HTN and recurrent KELSEA with baseline serum creatinine 1.4 to 1.6 mg/dL. He follows in my office for his CKD care. Patient after arrival at the [facility] hada repeat labs done which showed persistent [...] visible mass Skin: No rashes or bruises CERTIFIED MAINTENANCE WELDER: Awake,Alert, following simple command Musculoskeletal: No joint [...] Tablet.) 81 mg PO DAILY [facility] Stop: 08/12/23 08:59 Last Admin: 08/14/22 08:22 Dose: 81 mg Atorvastatin Calcium (Atorvastatin 40 Mg Tablet) 40 mg PO HS [facility] Stop: 08/11/23 21:59 Last Admin: 08/13/22 21:12 Dose: 40 mg Dextrose (Dextrose 50% In Water 25 Gm/50 Ml Syringe) 0 gm IV-PUSH PRN PRN PRN Reason: Hypoglycemia Stop: 08/11/23 14:01 Doxycycline Hyclate (Doxycycline Hyclate 100 Mg Tablet) 100 mg PO BID [facility] Stop: 08/18/22 20:59 Last Admin: 08/14/22 08:23 [...] Vial) 5,000 unit SUBCUT Q8HR [facility] Stop: 08/12/23 21:59 Last Admin: 08/14/22 06:05 Dose: Not Given Hydralazine HCl (Hydralazine 20 Mg/Ml Vial) 10 mg IV-PUSH Q4H PRN PRN Reason: Hypertension Stop: 08/11/23 13:40 Last Admin: 08/14/22 05:44 Dose: 10 mg Ceftriaxone Sodium (Rocephin) 1 gm in 50 mls @ 100 mls/hr IV Q24H [facility] Stop: 08/14/22 14:14 Last Admin: 08/13/22 15:07 Dose: 100 mls/hr Sodium Chloride (0.9% Sodium Chloride 1,000 Ml) 1,000 mls @ 0 mls/hr MISCELLANE.Q0M PRN PRN Reason: Dialysis Stop: 08/11/23 14:19 Last Infusion: 08/12/22 12:38 Dose: Infused Insulin Aspart (Insulin Aspart 300 Units/3 Ml Insuln.Pen) 0 units SUBCUT TID.WM.HS [facility]; Protocol Stop: 08/11/23 16:59 Last Admin: 08/14/22 11:50 Dose: Not Given Insulin Glargine (Insulin Glargine 300 Units/3 Ml Insuln.Pen) 5 units SUBCUT DAILY [facility] Stop: 08/13/23 08:59 Last Admin: 08/13/22 08:45 Dose: Not Given Metoprolol Tartrate (Metoprolol Tartrate 50 Mg Tablet) 50 mg PO BID [facility] Stop: 08/11/23 20:59 Last Admin: 08/14/22 08:23 [...] Perez Jr. [email or web address]/13/2022 2:25 PM Dictation Location: [place] [address] Any impression(s) listed above is documentation that [...] daily monitor input output Documented By: Alicia León MD 08/14/221152 Signed By: <Electronically signed by Alicia León MD> 08/14/22 1155 [facility] Work Phone: 1([phone]) 968-853702-18-2023 Progress note Author Cade Alvarez [facility] August 14, 2022 11:21am Note Date/Time August 14, 2022 11:21am [facility] [address] [place] [address] Cardiology Progress Note Signed Patient: Victorino Smyth MR#: [id number] : 1940 Acct:[id number] Age/Sex: 82 / M Adm Date: 3 Loc: Room: [id number] Type: ADM IN Attending Dr: Hiral Interiano [...] % (Auto) 79.6 Lymph % (Auto) 7.8 Bracken % (Auto) 11.4 Eos % (Auto) 1.0 Baso % (Auto) 0.2 Nucleat RBC Rel Count 0.1 Neut # (Auto) 5.9 Lymph # (Auto) 0.6 L Bracken # (Auto) 0.8 Eos # (Auto) 0.1 [...] MPV Neut % (Auto) Lymph % (Auto) Bracken % (Auto) Eos % (Auto) Baso % (Auto) Nucleat RBC Rel Count Neut # (Auto) Lymph # (Auto) Bracken # (Auto) Eos # (Auto) Baso # [...] make sure that he has follow-up in [facility] within 4 weeks of discharge. (2) [...] signed by Cade Alvarez MD> 08/14/22 1121 [facility] Work Phone: [phone]) 951-914402-17-2023 Progress note Author Hiral Interiano [facility] August 13, 2022 3:09pm Note Date/Time August 13, 2022 3:02pm [facility] [address] [place] [address] Hospitalist Progress Note Signed Patient: Victorino Smyth MR#: [id number] : 1940 Acct:[id number] Age/Sex: 82 / M Adm Date: 3 Loc: Room: [address] [place] [address] Type: ADM IN Attending Dr: Hiral Interiano [...] 08/11/23 16:59 Not Given TID.WM.HS [facility] Protocol Insulin Glargine 5 units 08/13/22 09:00 08/13/22 08:45 Insulin Glargine 300 Units/3 Ml Insuln.Pen SUBCUT 08/13/23 08:59 Not Given DAILY [facility] Metoprolol Tartrate 50 mg 08/11/22 21:00 08/13/22 [...] signed by Hiral Interiano MD> 08/13/22 1509 [facility] Work Phone: [phone] 137-273102-17-2023 Progress note Author Alicia León [facility] August 13, 2022 11:29am Note Date/Time August 13, 2022 11:25am [facility] [address] [place] [address] Nephrology Progress Note Signed Patient: Victorino Smyth MR#: [id number] : 1940 Acct:[id number] Age/Sex: 82 / M Adm Date: 3 Loc: Room: [address] [place] [address] Type: ADM IN Attending Dr: Hiral Interiano MD Copies to: ~ Date of Service: 08/13/2022 Subjective Subjective Narrative: This is a 82-year-old male with a medical history of coronary artery disease s/pPCI, nephrolithiasis, CKD, diabetes mellitus, hypertension, dyslipidemia was presented to the emergency room of [facility] for generalized weakness and low urine output. On evaluation emergency room patient was found to have a life- threatening hyperkalemia with serum potassium 7 mmol/L, acute kidney injurywith elevated serum creatinine 17.8 mg/dL, metabolic acidosis serum bicarbonate 13.5 mmol/L. He was given insulin D50 calcium gluconate in the [place] emergency room. He had a CAT scan abdomen pelvis done which showed obstructive kidney stones in the right UPJ and total atrophy of the left kidney. Case was discussed with the on-call urologist Dr. Olivares and recommended patient needs to be n.p.o. for surgical intervention. He was transferred to [facility] for further care. Patient is history of CKD due to the longstanding DM, HTN and recurrent KELSEA with baseline serum creatinine 1.4 to 1.6 mg/dL. He follows in my office for his CKD care. Patient after arrival at the [facility] hada repeat labs done which showed persistent [...] visible mass Skin: No rashes or bruises CERTIFIED MAINTENANCE WELDER: Awake,Alert, following simple command Musculoskeletal: No joint [...] Tablet.) 81 mg PO DAILY [facility] Stop: 08/12/23 08:59 Last Admin: 08/13/22 08:44 Dose: Not Given Atorvastatin Calcium (Atorvastatin 40 Mg Tablet) 40 mg PO HS [facility] Stop: 08/11/23 21:59 Last Admin: 08/12/22 21:07 [...] @ 100 mls/hr IV Q24H [facility] Last Admin: 08/12/22 16:24 Dose: 100 mls/hr Azithromycin (Zithromax) 500 mg in 250 mls @ 250 mls/hr IV Q24H [facility] Last Admin: 08/12/22 15:06 Dose: 250 mls/hr Sodium Chloride (0.9% Sodium Chloride 1,000 Ml) 1,000 mls @ 0 mls/hr MISCELLANE.Q0M PRN PRN Reason: Dialysis Stop: 08/11/23 14:19 Last Infusion: 08/12/22 12:38 Dose: Infused Insulin Aspart (Insulin Aspart 300 Units/3 Ml Insuln.Pen) 0 units SUBCUT TID.WM.HS [facility]; Protocol Stop: 08/11/23 16:59 Last Admin: 08/13/22 08:44 Dose: Not Given Insulin Glargine (Insulin Glargine 300 Units/3 Ml Insuln.Pen) 5 units SUBCUT DAILY [facility] Stop: 08/13/23 08:59 Last Admin: 08/13/22 08:45 Dose: Not Given Metoprolol Tartrate (Metoprolol Tartrate 50 Mg Tablet) 50 mg PO BID [facility] Stop: 08/11/23 20:59 Last Admin: 08/13/22 08:45 [...] daily monitor input output Documented By: Alicia León MD 08/13/22 112 Signed By: <Electronically signed by Alicia León MD> 08/13/22 1129 [facility] Work Phone: 1(564) 947-582402-17-2023 Progress note Author Cade Alvarez [facility] August 13, 2022 9:40am Note Date/Time August 13, 2022 9:35am [facility] [address] [place] [address] Cardiology Progress Note Signed Patient: Victorino Smyth MR#: [id number] : 1940 Acct:[id number] Age/Sex: 82 / M Adm Date: 3 Loc: 4C Room: [address] [place] [address] Type: ADM IN Attending Dr: Hiral Interiano [...] MPV Neut % (Auto) Lymph % (Auto) Bracken % (Auto) Eos % (Auto) Baso % (Auto) Nucleat RBC Rel Count Neut # (Auto) Lymph # (Auto) Bracken # (Auto) Eos # (Auto) Baso # [...] (PCR) IU/mL N/A HCV RNA 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 N/A Hepatitis C Interp 08/12/22 08/12/22 08/13/22 19:37 21:06 04:28 Corrected WBC 9.9 Uncorrected WBC Count 9.9 RBC 3.54 L Hgb 11.6 L Hct 34.2 L MCV 96.5 MCH 32.9 MCHC 34.1 RDW 13.7 Plt Count 129 L MPV 8.7 Neut % (Auto) 79.2 Lymph % (Auto) 9.6 Bracken % (Auto) 9.8 Eos % (Auto) 0.9 Baso % (Auto) 0.5 Nucleat RBC Rel Count 0.1 Neut # (Auto) 7.8 H Lymph # (Auto) 0.9 L Bracken # (Auto) 1.0 H Eos # (Auto) [...] RNA (PCR) IU/mL HCV RNA 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 Hepatitis C Interp 08/13/22 08/13/22 04:28 05:25 Corrected WBC Uncorrected WBC Count RBC Hgb Hct MCV MCH MCHC RDW Plt Count MPV Neut % (Auto) Lymph % (Auto) Bracken % (Auto) Eos % (Auto) Baso % (Auto) Nucleat RBC Rel Count Neut # (Auto) Lymph # (Auto) Bracken # (Auto) Eos # (Auto) Baso # [...] RNA (PCR) IU/mL HCV RNA 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 Hepatitis C Interp A&P - Cardiology [...] By: <Electronically signed by Cade Alvarez MD> 08/13/2222 [facility] Work Phone: 1(453) 746-634102-16-2023 Progress note Author Hirla Interiano [facility] August 12, 2022 4:04pm Note Date/Time August 12, 2022 4:04pm [facility] [address] [place] [address] Hospitalist Progress Note Signed Patient: Victorino Smyth MR#: [id number] : 1940 Acct:[id number] Age/Sex: 82 / M Adm Date: 3 Loc: Room: [address] [place] [address] Type: ADM IN Attending Dr: Hiral Interiano [...] 08/11/23 16:59 Not Given TID.WM.HS [facility] Protocol Metoprolol Tartrate 50 mg 08/11/22 21:00 [...] kidney disease: Plan: Patient was transferred from [place] ER when found to have acute kidney [...] acidosis. Documented By: Hiral Interiano MD 08/12/22 1554 Signed By: <Electronically signed by Hiral Interiano MD> 08/12/22 2532 [facility] Work Phone: 1([phone]) 832-380302-16-2023 Progress note Author Alicia León [facility] August 12, 2022 11:29am Note Date/Time August 12, 2022 11:24am [facility] [address] [place] [address] Nephrology Progress Note Signed Patient: Victorino Smyth MR#: [id number] : 1940 Acct:[id number] Age/Sex: 82 / M Adm Date: 3 Loc: Room: [address] [place] [address] Type: ADM IN Attending Dr: Hiral Interiano MD Copies to: ~ Date of Service: 08/12/2022 Subjective Subjective Narrative: This is a 82-year-old male with a medical history of coronary artery disease s/pPCI, nephrolithiasis, CKD, diabetes mellitus, hypertension, dyslipidemia was presented to the emergency room of [facility] for generalized weakness and low urine output. On evaluation emergency room patient was found to have a life- threatening hyperkalemia with serum potassium 7 mmol/L, acute kidney injurywith elevated serum creatinine 17.8 mg/dL, metabolic acidosis serum bicarbonate 13.5 mmol/L. He was given insulin D50 calcium gluconate in the [place] emergency room. He had a CAT scan abdomen pelvis done which showed obstructive kidney stones in the right UPJ and total atrophy of the left kidney. Case was discussed with the on-call urologist Dr. Olivares and recommended patient needs to be n.p.o. for surgical intervention. He was transferred to [facility] for further care. Patient is history of CKD due to the longstanding DM, HTN and recurrent KELSEA with baseline serum creatinine 1.4 to 1.6 mg/dL. He follows in my office for his CKD care. Patient after arrival at the [facility] hada repeat labs done which showed persistent [...] visible mass Skin: No rashes or bruises CERTIFIED MAINTENANCE WELDER: Awake,Alert, following simple command Musculoskeletal: No joint [...] @ 100 mls/hr IV Q24H [facility] Last Infusion: 08/11/22 21:49 Dose: Infused Azithromycin (Zithromax) 500 mg in 250 mls @ 250 mls/hr IV Q24H [facility] Last Admin: 08/11/22 16:00 Dose: 250 mls/hr Sodium Chloride (0.9% Sodium Chloride 1,000 Ml) 1,000 mls @ 0 mls/hr MISCELLANE.Q0M PRN PRN Reason: Dialysis Stop: 08/11/23 14:19 Last Admin: 08/12/22 10:24 Dose: 999 mls/hr Insulin Aspart (Insulin Aspart 300 Units/3 Ml Insuln.Pen) 0 units SUBCUT TID..[facility]; Protocol Stop: 08/11/23 16:59 Last Admin: 08/12/22 08:07 Dose: Not Given Metoprolol Tartrate (Metoprolol Tartrate 50 Mg Tablet) 50 mg PO BID [facility] Stop: 08/11/23 20:59 Last Admin: 08/12/22 08:20 [...] Rehan Fuentes M.D.08/11/2022 4:10 PM Dictation Location: [place] [address] Any impression(s) listed above is documentation that [...] monitor input output * Documented By: Alicia León MD 08/12/221121 Signed By: <Electronically signed by Alicia León MD> 08/12/22 [facility] Work Phone: 1(401) 800-149402-16-2023 Progress note Author Cade Tann [facility] August 12, 2022 10:04am Note Date/Time August 12, 2022 10:05am [facility] [address] [place] [address] Cardiology Progress Note Signed Patient: Victorino Smyth MR#: [id number] : 1940 Acct:[id number] Age/Sex: 82 / M Adm Date: 3 Loc: Room: [address] [place] [address] Type: ADM IN Attending Dr: Hiral Interiano [...] % (Auto) N/A Lymph % (Auto) N/A Bracken % (Auto) N/A Eos % (Auto) N/A Baso % (Auto) N/A Nucleat RBC Rel Count N/A Neut # (Auto) N/A Lymph # (Auto) N/A Bracken # (Auto) N/A Eos # (Auto) N/A [...] MPV Neut % (Auto) Lymph % (Auto) Bracken % (Auto) Eos % (Auto) Baso % (Auto) Nucleat RBC Rel Count Neut # (Auto) Lymph # (Auto) Bracken # (Auto) Eos # (Auto) Baso # [...] MPV Neut % (Auto) Lymph % (Auto) Bracken % (Auto) Eos % (Auto) Baso % (Auto) Nucleat RBC Rel Count Neut # (Auto) Lymph # (Auto) Bracken # (Auto) Eos # (Auto) Baso # [...] % (Auto) 88.0 Lymph % (Auto) 4.4 Bracken % (Auto) 7.4 Eos % (Auto) 0.0 Baso % (Auto) 0.2 Nucleat RBC Rel Count 0.0 Neut # (Auto) 11.8 H Lymph # (Auto) 0.6 L Bracken # (Auto) 1.0 H Eos # (Auto) [...] MPV Neut % (Auto) Lymph % (Auto) Bracken % (Auto) Eos % (Auto) Baso % (Auto) Nucleat RBC Rel Count Neut # (Auto) Lymph # (Auto) Bracken # (Auto) Eos # (Auto) Baso # [...] signed by Cade Alvarez MD> 08/12/22 [address] [facility] Work Phone: 1(300) 690-751502-15-2023 Consult note Author Alicia León [facility] August 11, 2022 5:46pm Note Date/Time August 11, 2022 4:00pm [facility] [address] [place] [address] Nephrology Consult Note Signed with Addenda Patient: Victorino Smyth MR#: [id number] : 1940 Acct:[id number] Age/Sex: 82 / M Adm Date: 3 Loc: Room: [address] [place] [address] Type: ADM IN Attending Dr: Hiral Interiano MD Copies to: MD Jose Campoverde MD Mazhar Rahman, MD~ ADDENDUM1 patient was seen and examined during HD and case was d/w HD RN. No issues were reported by patient and RN Addendum Documented By: Alicia León MD 08/11/22 174 Addendum Signed By: <Electronically signed by Alicia León MD> 08/11/22 174 Providers Consult Date: 08/11/22 Requesting Provider: Hiral Interiano MD Primary Care Provider: Jose Alfaro MD [facility] Reason for Consult: KELSEA on CKD, hyperkalemia, metabolic acidosis management History of Present Illness: This is a 82-year-old male with a medical history of coronary artery disease s/pPCI, nephrolithiasis, CKD, diabetes mellitus, hypertension, dyslipidemia was presented to the emergency room of [facility] for generalized weakness and low urine output. On evaluation emergency room patient was found to have a life- threatening hyperkalemia with serum potassium 7 mmol/L, acute kidney injurywith elevated serum creatinine 17.8 mg/dL, metabolic acidosis serum bicarbonate 13.5 mmol/L. He was given insulin D50 calcium gluconate in the [place] emergency room. He had a CAT scan abdomen pelvis done which showed obstructive kidney stones in the right UPJ and total atrophy of the left kidney. Case was discussed with the on-call urologist Dr. Olivares and recommended patient needs to be n.p.o. for surgical intervention. He was transferred to [facility] for further care. Patient is history of CKD due to the longstanding DM, HTN and recurrent KELSEA with baseline serum creatinine 1.4 to 1.6 mg/dL. He follows in my office for his CKD care. Patient after arrival at the [facility] hada repeat labs done which showed persistent [...] 250 mls @ 250 mls/hr IV Q24H [facility] Sodium Chloride (0.9% Sodium Chloride 1,000 Ml) [...] visible mass Skin: No rashes or bruises CERTIFIED MAINTENANCE WELDER: Awake,Alert, following simple command Musculoskeletal: No joint [...] Patient consented for dialysis. I consulted the insurance salesperson for hemodialysis catheter placement which was placed [...] the primary hospitalist team. Documented By: Alicia León MD 08/11/22 1554 Signed By: <Electronically signed by Alicia León MD> 08/11/22 1617 [facility] Work Phone: 1(307) 898-337002-15-2023 Consult note Author Cade Alvarez [facility] August 11, 2022 4:47pm Note Date/Time August 11, 2022 4:36pm [facility] [address] [place] [address] Cardiology Consult Note Signed Patient: Victorino Smyth MR#: [id number] : 1940 Acct:[id number] Age/Sex: 82 / M Adm Date: 3 Loc: Room: [address] [place] [address] Type: ADM IN Attending Dr: Hiral Interiano [...] syndrome in 2017. Patient initially presented to [place] emergency department complaining of shortness of breath [...] # (Auto) N/A Lymph # (Auto) N/A Bracken # (Auto) N/A Eos # (Auto) N/A [...] nonspecific abnormality, ST segment, and/or T wave AR, pacemaker, normal Normal tracing: no change compared [...] patient Documented By: Cade Alvarez MD 08/11/22 2328 Signed By: <Electronically signed by Cade Alvarez MD> 08/11/22 5819 [facility] Work Phone: 1(336) 611-501002-15-2023 Consult note Author Ni Olivares [facility] August 11, 2022 3:24pm Note Date/Time August 11, 2022 3:24pm [facility] [address] [place] [address] Urology Consult Note Signed Patient: Victorino Smyth MR#: [id number] : 1940 Acct:[id number] Age/Sex: 82 / M Adm Date: 3 Loc: Room: [address] [place] [address] Type: ADM IN Attending Dr: Hiral Interiano MD Copies to: MD Ni James MD Mazhar Rahman, MD~ History of Present Illness Consult Details Consult Date: 08/11/2022 Requesting Provider: Hiral Interiano MD HPI: Mr. Smyth is an 82-year-old man transferred from the [facility] earliertoday. The patient presented with [...] the emergency room prior to transfer to [facility]. He finished breakfast at about 11 AM. [...] P documented [facility] Inter[facility]?: Yes Medical History (Updated [...] % (Auto) N/A, Lymph % (Auto) N/A, Bracken % (Auto) N/A, Eos % (Auto) N/A, Baso % (Auto) N/A, Nucleat RBC Rel Count N/A, Neut # (Auto) N/A, Lymph # (Auto) N/A, Bracken # (Auto) N/A, Eos # (Auto) N/A, [...] actually worse than that noted at the [facility] at a current level of [...] <Electronically signed by MD Ni Olivares> 08/11/22 [address] [facility] Work Phone: 1(569) 541-637402-15-2023 History and physical note Author Hiral Interiano [facility] August 11, 2022 2:02pm Note Date/Time August 11, 2022 2:02pm [facility] [address] [place] [address] Hospitalist H&P Signed Patient: Victorino Smyth MR#: [id number] : 1940 Acct:[id number] Age/Sex: 82 / M Adm Date: 3 Loc: Room: [address] [place] [address] Type: ADM IN Attending Dr: Hiral Interiano [...] of nephrolithiasis. Patient has been transferred from [facility] ER for acute kidney injury [...] repeated labs available in the record from [place] ER. Chest x-ray read as mild bilateral [...] a similar feeling when he had an AR in 2016 and prior to that in [...] negative unless noted below or in HPI [facility] Medical History (Updated 08/11/22 @ [...] 2. He has been transferred from [facility] for obstructive uropathy with worsening renal failure and hyperkalemia. I was informed the patient was given cocktail for hyperkalemia with no repeated labs available in the record. Patient arrival to floor complaining of midsternal discomfort and mentioned having similar feeling when he had an AR. Does appear tachypneic likely from metabolic acidosis. EKG negative for acute ischemic changes. Case discussed with Dr. León and Dr. 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 [facility] Other 08-11-2022 NotePROCEDURE: XR KNEE LT 4V or > COMPARISON: None. HISTORY: Pain of left knee joint FINDINGS: BONES:No acute fracture or dislocation. Minimal degenerative changes. SOFT TISSUES:Negative. No visible soft tissue swelling. EFFUSION:None visible. 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 [facility] Other 05-02-2022 Hospital Discharge instructions Follow Up Care 10/26/2021 10:06:54 With:KADE OLIVEROS, Milton Brewer, URL Address: [address] [place] [address]- When: Unknown [facility] 05-02-2022 Hospital Discharge instructions Patient Education [...] 06/13/2006 Document Revised: 03/02/2019 Document Reviewed: 05/13/2017 [employer] Patient Education 2020 [employer]. 10/26/2021 09:44:44 Urinary Frequency, Adult Urinary Frequency, [...] to keep your urine pale yellow. ?Take kdxh-oup-chrbcum or prescription medicines. ?Eat foods that are high in fiber, such as beans, whole grains, and fresh fruits and vegetables. ?Limit foods that are high in fat and processed sugars, such as fried or sweet foods. General instructions Take sygv-nhs-bvmkrog and prescription medicines only as told by [...] the muscles that help control urination. Take ieqd-gjd-tvoegpf and prescription medicines only as told by your health care provider. Contact a health care provider if your symptoms do not improve or get worse. This information is not intended to replace advice given to you by your health care provider. Make sure you discuss any questions you have with your health care provider. Document Released: 04/09/2010 Document Revised: 12/21/2018 Document Reviewed: 12/21/2018 [employer] Patient Education 2020 [employer]. 10/26/2021 09:44:41 Kidney Stones, Gqpp-qz-Rtdy Kidney Stones Kidney stones are rock-like masses [...] Follow these instructions at home: Medicines Take xkel-vwi-fjfzmsy and prescription medicines only as told by [...] 11/29/2008 Document Revised: 10/30/2019 Document Reviewed: 10/30/2019 [employer] Patient Education 2020 [employer]. 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 [facility] Other evaluation + Plan note Future Appointments Appointment Date:10/29/2022 08:45:00 AM Scheduled Provider:Milton BRAUN MD Location:[facility] Appointment Type:URO Office Visit [facility] evaluation + Plan note Future Appointments Appointment Date:09/14/2022 07:30:00 AM Scheduled Provider: Location:[facility] Appointment Type:Surgical PAT FT Appointment Date:10/07/2022 12:00:00 PM Scheduled Provider: Location:[facility] Appointment Type:Surgery FT Appointment Date:10/29/2022 08:45:00 AM Scheduled Provider:Milton BRAUN MD Location:[facility] Appointment Type:URO Office Visit [facility] Evaluation + Plan note Future Appointments Appointment Date:11/18/2022 10:30:00 AM Scheduled Provider: Location:[facility] Appointment Type:Surgical PAT FT Appointment Date:12/02/2022 11:45:00 AM Scheduled Provider: Location:[facility] Appointment Type:Surgery FT [facility] evaluation + Plan note Future Appointments Appointment Date:06/12/2024 11:00:00 AM Scheduled Provider:Ni OLIVARES MD [facility] Appointment Type:URO Office Visit Future Scheduled Tests Laboratory* Total Protein 24 Hour Urine 02/14/23 [facility] evaluation + Plan note Future Appointments Appointment Date:12/10/2024 11:15:00 AM Scheduled Provider:Ni OLIVARES MD Location:[facility] Appointment Type:URO Office Visit Diagnostic Tests Pending * PSA Total 06/12/24 [facility] Evaluation note* Diagnosis Onset Date Resolution Status Acute kidney injury superimp osed on chronic kidney disease acute Acute kidney insufficiency a cute CAD (coronary artery disease) acute CKD (chronic kidney disease) stage 3, GFR 30-59 ml/min acute Elevated PSA acute Hydronephrosis with ureteral calculus acute Hyperkalemia acute [id number] acute Left renal atrophy acute Metabolic acidosis acute Obstructive nephropathy acut e Preoperative cardiovascular examination acute Right ureteral stone acute 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 Diabetes chronic [facility] Work Phone: Evaluation noteNo assessment information available [facility] Work Phone: evaluation note* Diagnosis Onset Date Resolution Status Secondary hyperparathyroidism acute CKD (chronic kidney disease) stage 3, GFR 30-59 ml/min chronic [id number] chronic Left renal atrophy chronic Metabolic acidosis chronic 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 [facility] Work Phone: history general Narrative - Reported* Type Description Date Medical History DIABETES MELLITUS Medical History CORONARY ARTERY DISEASE Medical History MORBID OSESITY Surgical History HERNEA LOWER RIGHT ABDOMINAL Surgical History HEART ATTACK WITH STENT PLACEME NT IN THE LAD Surgical History KIDNEY STENTS X 2 Surgical History PROSTRATE BIO PAD Surgical History KIDNEY STENTS X2 Surgical History KIDNEY STONE REMOVAL Hospitalization History SEE ABOVE [facility] Other Hisvykk general Narrative - Reported* Type Description Date [...] KIDNEY STONE REMOVAL Hospitalization History SEE ABOVE [facility] Other history general Narrative - Reported* Type [...] KIDNEY STONE REMOVAL Hospitalization History SEE ABOVE [facility] Other History general Narrative - Reported* Type [...] History KELSEA, HYPERKALEMIA, METAB OLIC ACIDOSIS 08/11/2022 [facility] Other Hospital course Narrative No data available for this section [facility] Hospital Discharge instructions Additional Instructions Follow-up with your Primary Scanning Clerk in 4 weeks. Avoid NSAIDs for pain control. Call [facility] Scheduling on Tuesday at [phone] to arrange a follow up CT scan regarding lung nodule in 4 weeks. Maintain occlussive dressing to HD catheter removal site for 48 hours - return to the Emergency Room for oozing or drainage from catheter exit site, noticeable swelling or itching around neck, shortness of breath, [facility] Work [facility]: Progress note No data available for this section [facility] Chief Complaint and Reason for Visit Chief Complaint ACUTE RENAL FAILURE Reason for Visit Acute kidney injury superimposed on chronic kidney disease Acute kidney insufficiency CAD (coronary artery disease) CKD (chronic kidney disease) stage 3, GFR 30-59 ml/min Elevated PSA Hydronephrosis with ureteral calculus Hyperkalemia [id number] Left renal atrophy Metabolic acidosis Obstructive nephropathy Preoperative cardiovascular examination Right ureteral stone Type 2 diabetes mellitus with diabetic chronic kidney disease Diabetes Chief Complaint n20.0 Chief Complaint n20.0 N40.1 Chief Complaint n20.0 N40.1 N20.0 Chief Complaint Unknown Chief Complaint Unknown RENAL 6 month f/u Reason for Visit Secondary hyperparat hyroidism CKD (chronic kidney disease) stage 3, GFR 30-59 ml/min [id number] Left renal atrophy Metabolic acidosis Type 2 diabetes mellitus with diabetic chronic kidney disease Advance Directives Advance Directive Response Recorded Date/ Time Advance [...] Care Teams (unrecognized sec tion and content) Personnel Name: Jose Alfaro MD Address: Address: [address] [place] [address] Team Status: Inactive Member Role Status Sarabjit [...] Kiser MD Other Provider Active Jen Tamayo MEDICAL FIELD REPRESENTATIVE- Other Provider Active Aaliyah Mitchell MD Other Provider Active Alicia León MD Other Provider Active Milton Braun MD Other Provider Active Ni Olivares MD Other Provider Active Yogesh Omalley MD Other Provider Active Kiran Eldridge Jr, MD Other Provider Active Fátima Ivey MD Other Provider Active Jennifer Villarreal MD Other Provider Active Bipin Barclay MD Other Provider Active Team Status: Active Member Role Status Dates Jose Alfaro MD Primary Care Provider Active Team Status: Inactive Member Role Status Dates Jose Alfaro MD Primary Care Provider Active Ni Olivares MD Attending Provider Active Team Status: Inactive Member Role Status Dates Jose Alfaro MD Primary Care Provider Active Start: October 18, 2023 End: October 18, 2023 NON STAFF Attending Provider Active Start: 2023 End: October 18, 2023 Team Status: Active Member Role Status Dates Jose Alfaro MD Primary Care Provider Active Start: December 14, 2023 Alicia León MD Attending Provider Active Start : December 14, 2023 Team Status: Inactive Member Role Status Dates Jose Alfaro MD Primary Care Provider Active Start: December 20, 2023 End: December 20, 2023 Alicia León MD Attending Provider Active Start : December 20, 2023 End: December 20, 2023 (unrecognized sect ion and content) No Status Records FoundNo Status Records FoundNo Status Records FoundNo Status Records FoundNo Status Records FoundNo Status Records Found INFORMATION SOURCE (unrecogn ized section and content) DATE CREATED AUTHOR 10/03/2022 [facility] DATE CREATED AUTHOR AUTHOR'S ORGANIZ ATION 12/07/[address] [facility] DATE CREATED AUTHOR AUTHOR'S ORGANIZ ATION 10/27/2023 [facility] DATE CREATED AUTHOR AUTHOR'S ORGANIZ ATION 12/21/2023 [facility] DATE CREATED AUTHOR AUTHOR'S ORGANIZ ATION 05/23/2024 [facility] DATE CREATED AUTHOR AUTHOR'S ORGANIZ ATION 06/14/2024 [facility] Goals (unrecognized section and content) Goals may [...] BE BASED ON THE PRIMARY CLINICAL RECORDS. [facility] [facility]. provides no warranty or guarantee of the accuracy or completeness of information in this document.
[2024-09-12 11:09] LABS: Estimated GFR (African America 47 (>=60 mL/min/1.73m^2); Estimated GFR (Non-African Ame 39 (>=60 mL/min/1.73m^2)
== END 2024-09-12 10:55 | disposition home or self-care (01) ==
LOC: LAB 10:54
PROVIDERS: PCP Family Medicine; Visit Provider Family Medicine
DX: Z01.812 Encounter for preprocedural laboratory examination (principal); K37 Unspecified appendicitis
CPT/HCPCS: 36415; 74177; 82565; Q9966

== ENCOUNTER 2024-11-27 08:01 | Outpatient (OUT) | payer MEDICARE, SELFPAY ==
--- OUTSIDE RECORDS SUMMARY | 2024-09-05 06:30 | XMS_ITS ---
Author Organization [facility] in [place] Address [address] [place] [address] Care Team Providers Care School Boat Driver Name Role Phone Jose Danielson Primary Care Provider Allergies Allergen (clinical drug ingredient) Drug/Non Drug Allergy documented on EMR Reaction Allergy Type Onset Date Status ciprofloxacin Ciprofloxacin Unknown Drug Allergy Active Penicillin Unknown Drug Allergy Active REASON FOR VISIT 3mon, Occasional pains here and there- ongoing, Coughing has cleared up, Needs refill of Glimepiride to [facility] Medications Medication SIG (Take, Route, Frequency, Duration) Notes Start Date End Date Status Vitamin D3 125 MCG (5000 UT) 1 capsule Orally Daily Activ e Terbinafine HCl 250 MG 1 tablet Orally O nce a day for 30 days 03/07/2024 Active Triamcinolone Acetonide 0.1 % 1 application Externally Two times a Week Active Spiriva Respimat 2.5 MCG/ACT 2 puffs Inhalation QD for 90 days Active Ranolazine ER 500 MG 1 tablet Orally Twi ce a day for 90 days Active Nitrostat 0.4 MG as directed Sublingual Active Pioglitazone HCl 15 MG TAKE 1 TABLET BY MOUTH ONCE DAILY for 90 days Active Metoprolol Tartrate 50 MG 1 tablet with food Orally Twice a day Active Lisinopril 20 MG 1 tablet Orally Once a day Active Magnesium Oxide 400 MG 1 tablet as neede d Orally Once a day Active Levsin/SL 0.125 MG 1 tablet under the t ongue and allow to dissolve as needed Sublingual AC and HS 07/19/2023 Active Liothyronine Sodium 5 MCG TAKE 1 TABLET BY MOUTH ONCE DAILY for 90 Active Levothyroxine Sodium 50 MCG TAKE 1 TABLE T BY MOUTH ONCE DAILY IN THE MORNING ON AN EMPTY STOMACH for 90 Active Ketoconazole 2 % 1 application Academic Support Assistant ally Once a day Active Isosorbide Mononitrate ER 120 MG 2 tablets Orally Once a day for 90 days Active Januvia 100 MG TAKE 1 TABLET BY GAB TH ONCE DAILY for 90 Active Glucosamine Chondr 500 Complex - as directed Orally BID Activ e Atorvastatin Calcium 80 MG 1 tablet Oral ly Once a day Active B Complex - as directed Orally Daily Active amLODIPine Besylate 2.5 MG 1 tablet Oral ly Once a day for 90 days Active Aspirin 81 81 MG 1 tablet Orally Once a day Active Albuterol Sulfate 108 (90 Base) MCG/ACT 2 puffs as needed for SOB Inhalation Q4H for 30 days Active Glimepiride 2 MG 1 tablet Orally twic e daily for 90 days Active Accu-Chek Multiclix Lancets Use 1 lancet once daily to test blood sugar. Dx: E11.9 for 100 days Active Accu-Chek Nevaeh Plus - Use 1 strip once daily to test blood sugar In Vitro for 100 days Dx: E11.9 Active Social History Tobacco Use: Social History Observation Description Date Details (start date - stop date) Former Smoker NA - NA Tobacco Use/Smoking Question Answer Notes Patient is a former smoker When did you start smoking? 06/27/1958 When did you stop smoking? 06/27/1978 How long has it been since you last smoked? > 10 years Additional Findings: Tobacco Non-User Current no n-smoker Tobacco Control (Standard) Question Answer Notes Tobacco use: Former smoker How long has it been since y ou last smoked? Greater than 10 years Additional Findings: Tobacco non-user Ex -moderate cigarette smoker (10-19/day) Vital Signs Weight 265.6 lbs 09/05/2024 Height 69 in 09/05/2024 Blood pressure systolic 134 mm Hg 09/06/19 25 Blood pressure diastolic 66 mm Hg 025 BMI 39.22 kg/m2 09/05/2024 Encounters Encounter Location Date Provider Diagnosis [address] [place] [address] 09/05/2024 Jose Danielson DM2 (diabetes [facility], type 2) E11.9 ; Hypothyroidism E03.9 ; Hyperlipidemia E78.5 ; Hypertension I10 and Appendicitis K37 Assessments Encounter Date Diagnosis (ICD Code) Assessment Notes Treatment Notes Treatment Clinical Notes Section Notes 09/05/2024 DM2 (diabetes mellitus, type 2) (ICD-10 - E11.9) 09/05/2024 Hypothyroidism (ICD-10 - E03.9) 09/05/2024 Hyperlipidemia (ICD-10 - E78.5) 09/05/2024 Hypertension (ICD-10 - I10) 09/05/2024 Appendicitis (ICD-10 - K37) Plan Of Treatment Medication Medication Name Sig Start Date Stop Date Notes Glimepiride 2 MG 1 tablet Orally twice daily for 90 days Pending Test Test Name Order Date HEMOGLOBIN A1C (GLYCO) 09/05/2024 LIPID PANEL (CHOL/TRIG/HDL/LDL) 09/06/[address] ABD and PELV W CON 09/05/2024 THYROID PANEL (T4/TSH/FREE T3) 5 PSA, SCREENING 09/05/2024 CMP (COMP MET BARROW) w/eGFR CKD-EPI 2024 CBC WITH DIFF 09/05/2024 Next Appt Details Provider Name:Jose Danielson, 10:45:00 AM, [address] [place], [address], Provider Name:Jay Doty, 04/23/2025 09:00:00 AM, [address] [place], [address], Progress Notes * Victorino SMYTHDOB:[birth year] (84 yo M)Acc No.[id number]:09/05/2024 Progress Note Patient: Victorino GUEVARA Provider: Alcira Danielson ([facility])MD :1940 A ge:84 Y S ex:Male Date:09/05/2024 Address:[address] [place], [place] [id number] Check In:11:06 AM ESTCheck O ut:11:09 AM EST Subjective: * Chief Complaints: * 3 monOccasional pains here and there- ongoingCoughing has cleared upNeeds refill of Glimepiride to [facility] * HPI: G eneral: Cough - much beterr DM good control - cheeting more lately HYopertension - stable Hypotyroidism. * ROS: E ENT: hearing changes d enies. v isual changes d enies.?non-healing mouth sores d enies. s wollen glands or neck lumps d enies. h oarseness d enies. s ore throat d enies. d ifficulty swallowing d enies. n ose bleeds d enies. n damaso congestion d enies. e ar ache d enies. e ar discharge?denies. r inging in ears d enies. l ight sensitivity d enies. e ye pain d enies. b lurring d enies. e ye irritation d enies. d ouble vision d enies.?vision loss d enies. G eneral/Constitutional: Sweats: D enies. F atigue d enies. S leep problems d enies. A norexia d enies. M alaise d enies. W eight loss d enies.?Fatigue or Weakness d enies. F ever or Chills d enies. C ardiovascular: Shortness of Breath w/lying flat d enies. L ightheadedness/dizziness d enies. C hest tightness/ heavy pressure d enies. S welling of legs, ankles, or feet d enies. W aking up with shortness of breath d enies. C hest pain denies. P alpitations d enies. W eight gain d enies. R espiratory: Chronic or frequent cough d enies. C oughing up blood?denies. D ifficulty breathing d enies. P roductive cough d enies. S noring?denies. S hortness of breath that awakens from sleep (PND) d enies. C hest pain d enies. S putum production d enies. W heezing d enies. M usculoskeletal: Joint pain d enies. J oint Fluid d enies. B ack pain d enies. K nee pain d enies. N mindy pain d enies. J oint Stiffness d enies. M uscle cramps d enies. W eakness of muscles d enies. A rthritis d enies. M uscle aches d enies. P ain in shoulder(s) d enies. S wollen joints d enies. * Active Problem List E11.9 DM2 (diabetes [facility], type 2) Modified On:08/11/2023 Status:confirmed Z87.891 History of tobacco a buse Modified On:04/21/2023 Status:confirmed I25.[address] elevat ion myocardial infarction (STEMI) Modified On:08/11/2023 Status:confirmed B35.1 OM (onychomycosis) Modified On:10/26/2022 Status:confirmed C61 Adenocarcinoma of pr ostate Modified On:08/31/2022 Status:confirmed E03.9 Hypothyroidism Modified On:03/23/2023 Status:confirmed E66.3 Over weight Modified On:04/21/2023 Status:confirmed E78.5 Hyperlipidemia Modified On:10/26/2022 Status:confirmed G56.00 Carpal tunnel syndro me Modified On:10/26/2022 Status:confirmed H71.90 Cholesteatoma Modified On:10/26/2022 Status:confirmed I10 Hypertension Modified On:07/27/2023 Status:confirmed I25.10 Coronary artery dise ase Modified On:03/23/2023 Status:confirmed I51.7 Left ventricular hyp ertrophy Modified On:10/26/2022 Status:confirmed J44.9 COPD (chronic obstru ctive pulmonary disease) Modified On:04/21/2023 Status:confirmed K57.92 Diverticulitis Modified On:10/26/2022 Status:confirmed K63.5 Colon polyp, hyperpl astic Modified On:10/26/2022 Status:confirmed K64.9 Hemorrhoids Modified On:10/26/2022 Status:confirmed L30.1 Dyshidrotic eczema Modified On:04/21/2023 Status:confirmed M75.40 Shoulder impingement syndrome Modified On:10/26/2022 Status:confirmed N12 Pyelonephritis Modified On:10/26/2022 Status:confirmed N13.30 Hydronephrosis Modified On:10/26/2022 Status:confirmed N13.9 Obstructive uropathy Modified On:10/26/2022 Status:confirmed N17.9 Acute nontraumatic k idney injury Modified On:10/26/2022 Status:confirmed N18.9 Chronic kidney disea se, unspecified Modified On:10/26/2022 Status:confirmed N20.0 Nephrolithiasis Modified On:10/26/2022 Status:confirmed N40.0 Benign prostatic hyp erplasia Modified On:10/26/2022 Status:confirmed N42.9 Disorder of prostate , unspecified Modified On:10/26/2022 Status:confirmed J01.90 Acute sinus infectio n Modified On:07/06/2023 Status:confirmed R10.31 Right lower quadrant abdominal pain Modified On:07/19/2023 Status:confirmed K37 Appendicitis Modified On:09/06/2023 Status:confirmed Z01.818 Pre-op exam Modified On:07/27/2023 Status:confirmed R53.1 Weakness Modified On:08/05/2023 Status:confirmed E11.9 Diabetes mellitus Modified On:08/24/2023 Status:confirmed I10 BP (high blood press ure) Modified On:08/24/2023 Status:confirmed E03.9 Acquired hypothyroid ism Modified On:08/24/2023 Status:confirmed E83.51 Hypocalcemia Modified On:08/24/2023 Status:confirmed D72.829 Elevated WBCs Modified On:08/24/2023 Status:confirmed I25.10 CAD (coronary artery disease) Modified On:08/24/2023 Status:confirmed M25.572 Left ankle pain Modified On:06/07/2024 Status:confirmed N18.32 Chronic kidney disea se, stage 3b Modified On:08/03/2024/U Status:confirmed E66.01 Morbid (severe) obes ity due to excess calories Modified On:08/03/2024U Status:confirmed E11.22 Chronic kidney disea 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 M other: , congestive heart failure, diagnosed with Diabetes mellitus without mention of complication, type II or unspecified type, not stated as uncontrolled. B rother(s): alive. S ister(s): alive. S on(s): alive.?2 brother(s) , 1 sister(s) . 3 son(s) - healthy. . * Social History: T obacco Use: T obacco Control (Standard) T obacco use: F ormer smoker H ow long has it been since you last smoked??Greater than 10 years A dditional Findings: Tobacco non-user E x-moderate cigarette smoker (10-19/day) Electronic Cigarette use C urrent user N o LM: Additional Tobacco Questions N umber of Years Pt Smoked: 2 0 N umber of Packs per Day: 1 When did you stop smokin. Tobacco Use/Smoking P atient is a f ormer smoker W hen did you start smoking? 0 06/27/1958 W hen did you stop smoking? 0 06/27/1978 H ow long has it been since you last smoked??> 10 years A dditional Findings: Tobacco Non-User C urrent non-smoker * Medications: T akingAccu-Chek Nevaeh Plus(Glucose Blood) - Strip Use 1 strip once daily to test blood sugar In Vitro Dx: E11.9Accu-Chek Multiclix Lancets Use 1 lancet once daily to test blood sugar. Dx: E11.9 Albuterol Sulfate 108 (90 Base) MCG/ACT Aerosol Powder Breath Activated 2 puffs as needed for SOB Inhalation Q4H amLODIPine Besylate 2.5 MG Tablet 1 tablet Orally Once a day Aspirin 81(Aspirin) 81 MG Tablet Delayed Release 1 tablet Orally Once a day Atorvastatin Calcium 80 MG Tablet 1 tablet Orally Once a day B Complex - Capsule as directed Orally Daily Glimepiride 4 MG Tablet 2 tablets Orally twice daily Glucosamine Chondr 500 Complex - Capsule as directed Orally BID Isosorbide Mononitrate ER 120 MG Tablet Extended Release 24 Hour 2 tablets Orally Once a day Januvia(SITagliptin Phosphate) 100 MG Tablet TAKE 1 TABLET BY MOUTH ONCE DAILY Ketoconazole 2 % Cream 1 application Externally Once a day Levothyroxine Sodium 50 MCG Tablet TAKE 1 TABLET BY MOUTH ONCE DAILY IN THE MORNING ON AN EMPTY STOMACH Levsin/SL(Hyoscyamine Sulfate) 0.125 MG Tablet Sublingual 1 tablet under the tongue and allow to dissolve as needed Sublingual AC and HS Liothyronine Sodium 5 MCG Tablet TAKE 1 TABLET BY MOUTH ONCE DAILY Lisinopril 20 MG Tablet 1 tablet Orally Once a day Magnesium Oxide 400 MG Tablet 1 tablet as needed Orally Once a day Metoprolol Tartrate 50 MG Tablet 1 tablet with food Orally Twice a day Nitrostat(Nitroglycerin) 0.4 MG Tablet Sublingual as directed Sublingual Pioglitazone HCl 15 MG Tablet TAKE 1 TABLET BY MOUTH ONCE DAILY Ranolazine ER 500 MG Tablet Extended Release 12 Hour 1 tablet Orally Twice a day Spiriva Respimat(Tiotropium [place] Monohydrate) 2.5 MCG/ACT Aerosol Solution 2 puffs Inhalation QD Terbinafine HCl 250 MG Tablet 1 tablet Orally Once a day Triamcinolone Acetonide 0.1 % Cream 1 application Externally Two times a Week Vitamin D3 125 MCG (5000 UT) Capsule 1 capsule Orally Daily Taking Accu-Chek Nevaeh Plus(Glucose Blood) - Strip Use 1 strip once daily to test blood sugar In Vitro Dx: E11.9Taking Accu-Chek Multiclix Lancets Use 1 lancet once daily to test blood sugar. Dx: E11.9 Taking Albuterol Sulfate 108 (90 Base) MCG/ACT Aerosol Powder Breath Activated 2 puffs as needed for SOB Inhalation Q4H Taking amLODIPine Besylate 2.5 MG Tablet 1 tablet Orally Once a day Taking Aspirin 81(Aspirin) 81 MG Tablet Delayed Release 1 tablet Orally Once a day Taking Atorvastatin Calcium 80 MG Tablet 1 tablet Orally Once a day Taking B Complex - Capsule as directed Orally Daily Taking Glimepiride 4 MG Tablet 2 tablets Orally twice daily Taking Glucosamine Chondr 500 Complex - Capsule as directed Orally BID Taking Isosorbide Mononitrate ER 120 MG Tablet Extended Release 24 Hour 2 tablets Orally Once a day Taking Januvia(SITagliptin Phosphate) 100 MG Tablet TAKE 1 TABLET BY MOUTH ONCE DAILY Taking Ketoconazole 2 % Cream 1 application Externally Once a day Taking Levothyroxine Sodium 50 MCG Tablet TAKE 1 TABLET BY MOUTH ONCE DAILY IN THE MORNING ON AN EMPTY STOMACH Taking Levsin/SL(Hyoscyamine Sulfate) 0.125 MG Tablet Sublingual 1 tablet under the tongue and allow to dissolve as needed Sublingual AC and HS Taking Liothyronine Sodium 5 MCG Tablet TAKE 1 TABLET BY MOUTH ONCE DAILY Taking Lisinopril 20 MG Tablet 1 tablet Orally Once a day Taking Magnesium Oxide 400 MG Tablet 1 tablet as needed Orally Once a day Taking Metoprolol Tartrate 50 MG Tablet 1 tablet with food Orally Twice a day Taking Nitrostat(Nitroglycerin) 0.4 MG Tablet Sublingual as directed Sublingual Taking Pioglitazone HCl 15 MG Tablet TAKE 1 TABLET BY MOUTH ONCE DAILY Taking Ranolazine ER 500 MG Tablet Extended Release 12 Hour 1 tablet Orally Twice a day Taking Spiriva Respimat(Tiotropium [place] Monohydrate) 2.5 MCG/ACT Aerosol Solution 2 puffs Inhalation QD Taking Terbinafine HCl 250 MG Tablet 1 tablet Orally Once a day Taking Triamcinolone Acetonide 0.1 % Cream 1 application Externally Two times a Week Taking Vitamin D3 125 MCG (5000 UT) Capsule 1 capsule Orally Daily DiscontinuedBenzonatate 200 MG Capsule 1 capsule Orally Three times a day predniSONE 20 MG Tablet 2 tablets Orally Once a day Tamiflu(Oseltamivir Phosphate) 75 MG Capsule 1 capsule Orally Twice a day Medication List reviewed and reconciled with the patientDiscontinued Benzonatate 200 MG Capsule 1 capsule Orally Three times a day Discontinued predniSONE 20 MG Tablet 2 tablets Orally Once a day Discontinued Tamiflu(Oseltamivir Phosphate) 75 MG Capsule 1 capsule Orally Twice a day Medication List reviewed and reconciled with the patient * Allergies: P enicillinCiprofloxacinno[Allergies Verified] Objective: * Vitals: W t:265.6lbs, Ht: 69 in, BP:134/66mm Hg, BMI:39.22Index, Ht-cm: 175.26 cm, Wt-k.47 kg. * Examination: P hysical Exam: GENERAL: w ell developed, well nourished, in no acute distress. HEAD: n ormocephalic/atraumatic. EYES: p upils equal, round and reactive to light, conjunctivae and sclerae normal. EARS: n o deformity or lesion of external ear, canals and TM appear normal bilaterally, TM's intact, not inflamed with normal light reflex, hearing grossly normal to conversational speech. NOSE: n o deformity, discharge, inflammation, or lesions.? MOUTH: m ucous membranes moist, normal oropharynx and posterior pharynx without lesions or exudates, tongue normal, dentition normal. NECK: n mindy supple, no masses or palpable cervical nodes, trachea midline, thyroid without nodules, masses, tenderness, or enlargement. CHEST: n o chest wall deformity, no chest wall tenderness.? LUNGS: n ormal respiratory effort and clear to auscultation, no wheezes, rales, or rhonchi, good air exchange. CARDIO: r egular rate and rhythm, normal S1 and S2, nor murmur, rub, or gallop. PULSES: n ormal capillary refill. ABDOMEN: s oft, non-distended, non-tender, no masses. MUSCULOSKELETAL: n o deformity or scoliosis noted, normal range of motion, joints normal, no erythema, edema, effusion, or ecchymosis. EXTREMITY: n o clubbing, cyanosis, edema, or deformity with normal ROM in both upper and lower bilateral extremities. NEUROLOGIC: g rossly normal. SKIN: n o rashes, ulcerations, or suspicious lesions. LYMPH NODES: n o cervical adenopathy, nodes normal. MENTAL STATUS: a lert and oriented x3, normal mood and affect. Assessment: * Assessment: 1. D M2 (diabetes mellitus, type 2) - E11.9 (Primary) 2 . H ypothyroidism - E03.9 3 . H yperlipidemia - E78.5 4 . H ypertension - I10? 5. A ppendicitis - K37 Plan: * Treatment: 2. H ypothyroidism L AB: HEMOGLOBIN A1C (GLYCO) L AB: LIPID PANEL (CHOL/TRIG/HDL/LDL) L AB: THYROID PANEL (T4/TSH/FREE T3) L AB: PSA, SCREENING L AB: CMP (COMP MET BARROW) w/eGFR CKD-EPI L AB: CBC WITH DIFF 3. H yperlipidemia L AB: HEMOGLOBIN A1C (GLYCO) L AB: LIPID PANEL (CHOL/TRIG/HDL/LDL) L AB: THYROID PANEL (T4/TSH/FREE T3) L AB: PSA, SCREENING L AB: CMP (COMP MET BARROW) w/eGFR CKD-EPI L AB: CBC WITH DIFF 4. H ypertension L AB: HEMOGLOBIN A1C (GLYCO) L AB: LIPID PANEL (CHOL/TRIG/HDL/LDL) L AB: THYROID PANEL (T4/TSH/FREE T3) L AB: PSA, SCREENING L AB: CMP (COMP MET BARROW) w/eGFR CKD-EPI L AB: CBC WITH DIFF 5. A ppendicitis I maging: CT ABD and PELV W CON * Procedure Codes: * Preventive Medicine: Screenings/Counseling: B NC ACTION PLAN Above Normal BMI Follow-up D ietary management education, guidance, and counseling * * Sign off status: Completed Visit Status: C HK (Check Out) true * Provider: Alcira Danielson ([facility])MD Date: 0 09/05/2024 Generated for Printi ng/Faxing/eTransmitting on: 0 11/27/2024 08:07 AM EDT History and Physical Notes * HPI (History of Present Illness) Category Sub-Category Detail Notes Category Not es General Cough - much beterr DM good control - cheeting more lately HYopertension - stable Hypotyroidism Examination Category Sub-Category Detail Notes Category Not es Physical Exam GENERAL: well developed, well nourished, in no acute distress HEAD: normocephalic/atraum atic EYES: pupils equal, round and reactive to light, conjunctivae and sclerae normal EARS: no deformity or lesi on of external ear, canals and TM appear normal bilaterally, TM's intact, not inflamed with normal light reflex, hearing grossly normal to conversational speech NOSE: no deformity, discha rge, inflammation, or lesions MOUTH: mucous membranes blas st, normal oropharynx and posterior pharynx without lesions or exudates, tongue normal, dentition normal NECK: neck supple, no mass es or palpable cervical nodes, trachea midline, thyroid without nodules, masses, tenderness, or enlargement CHEST: no chest wall deform ity, no chest wall tenderness LUNGS: normal respiratory e ffort and clear to auscultation, no wheezes, rales, or rhonchi, good air exchange CARDIO: regular rate and rhy thm, normal S1 and S2, nor murmur, rub, or gallop PULSES: normal capillary ref ill ABDOMEN: soft, non-distended, non-tender, no masses RECTAL: MUSCULOSKELETAL: no deformity or scol iosis noted, normal range of motion, joints normal, no erythema, edema, effusion, or ecchymosis EXTREMITY: no clubbing, cyanosi s, edema, or deformity with normal ROM in both upper and lower bilateral extremities NEUROLOGIC: grossly normal SKIN: no rashes, ulceratio ns, or suspicious lesions LYMPH NODES: no cervical adenopat hy, nodes normal MENTAL STATUS: alert and oriented x 3, normal mood and affect
--- OUTSIDE RECORDS SUMMARY | 2024-09-06 05:15 | XMS_ITS ---
Author Organization [facility] in [place] Address [address] [place] [address] Care Team Providers Care Marketing Director Assisted Living Name Role Phone Jose Danielson Primary Care Provider Results Component Value Reference Range Notes CREATININE Reviewed date:09/12/2024 07:49:34 PM Interpretation: Performing Lab: Notes/Report: [facility] , Creatinine 1.71 0.70-1.30 mg/dL Estimated GFR ( Yana 47 >=60 mL/min/1.73m 2 Estimated GFR (Non- Lisa 39 >=60 mL/min/1.73m 2 Performing Lab: see note ML - [facility] LB REASON FOR VISIT lab Encounters Encounter Location Date Provider Diagnosis [facility] [address] [facility] [place] [address] 09/06/2024 Jose Danielson Encounter for other preprocedural examination Z01.818 Assessments Encounter Date Diagnosis (ICD Code) Assessment Notes Treatment Notes Treatment Clinical Notes Section Notes 09/06/2024 Encounter for other preprocedural examination (ICD-10 - Z01.818) Plan Of Treatment Next Appt Details Provider Name:Jose Danielson, 10:45:00 AM, [address] [facility], [place], [address], Provider Name:Jay Doty, 04/23/2025 09:00:00 AM, [address] [place], [address], Progress Notes * Victorino SMYTHDOB:[birth year] (84 yo M)Acc No.[id number]:09/06/2024 Patient: Victorino GUEVARA :1940 A ge:84 Y S ex:Male Address:[address] [place] [address], [place], [address] Subjective: * Chief Complaints: * L ab * Medical History: * Surgical History: * Hospitalization/Major Diagno stic Procedure: * Medications: Objective: * Vitals: * Physical Examination: Assessment: * Assessment: 1. E ncounter for other preprocedural examination - Z01.818 (Primary) Plan: * Treatment: * Procedure Codes: * true * Date: Generated for Mini javier/Eve/Benniesmitting on: 0 11/27/2024 08:09 AM EDT
--- OUTSIDE RECORDS SUMMARY | 2024-09-12 15:49 | XMS_ITS ---
Author Organization [facility] [place] Address [address] [place] [address] Care Team Providers Care Wrapper Sheeter Name Role Phone Joes Danielson Primary Care Provider [phone] REASON FOR VISIT appendix Encounters Encounter Location Date Provider Diagnosis [facility] [address] [place] [address] 09/12/2024 Jose Erum Plan Of Treatment Next Appt Details Provider Name:Jose Adams Dustinnissa, 10:45:00 AM, [address] [place], [address], Provider Name:Jay Doty, 04/23/2025 09:00:00 AM, [address] [place], [address], Progress Notes * Victorino SMYTHDOB:[birth year] (84 yo M)Acc No.[id number]:09/12/2024 Patient: Victorino GUEVARA :1940 A ge:84 Y S ex:Male Address:[address] [place] [address], [place], [address] * true * Date: Generated for Printi ng/Faxing/eTransmitting on: 0 11/27/2024 08:07 AM EDT
--- OUTSIDE RECORDS SUMMARY | 2024-11-27 08:07 | XMS_ITS | Patient Health Record ---
Author Organization The [facility] in [place] Address [address] [place] [address] Care Team Providers Care Credit Rating Checker Name Role Phone Jose Alfaro Primary Care Provider TRAY ALFARO Unavailable [phone] Jay Doty Unavailable [phone] Allergies Allergen (clinical drug ingredient) Drug/Non Drug Allergy documented on EMR Reaction Allergy Type Onset Date Status ciprofloxacin Ciprofloxacin Unknown Drug Allergy Active Penicillin Unknown Drug Allergy Active Results Component Value Reference Range Notes CA echo doppler complete Reviewed date:12/01/2023 10:00:52 PM Interpretation: Performing Lab: Notes/Report: Source Facility: [place] [address] Cardiology Report Signed Patient: GLADYS SMYTH MR#: [id number] : 1940 Acct:[id number] Age/Sex: 83 / M ADM Date: 12/01/23 Loc: CARD Attending Dr: ISRA GAYLE APRN Ordering Physician: ISRA GAYLE APRN Date of Service: 12/01/23 Procedure(s): CA echo doppler complete Accession Number(s): [id number] cc: Tray Alfaro M.D.; ISRA GAYLE APRN Patient Name: GLADYS SMYTH MR#: [id number] : 1940 Exam Date: 12/01/2023 Ordering Doctor: ISRA GAYLE [facility] ECHOCARDIOGRAM REPORT PROCEDURE: CA ECHO DOPPLER COMPLETE INDICATIONS: CAD, hypertension, diabetes COMPARISON: None. DESCRIPTION: COMPLETE ECHOCARDIOGRAM Real-time transthoracic echocardiography with 2D, M-mode, spectral and color flow Doppler performed. QUALITY: Technical quality was good. 69 , 250#, BP 114/68 LEFT VENTRICLE: Normal chamber size. Thickened septal wall. LV EF: Global left ventricular systolic function is difficult to assess but appears preserved; visually estimated ejection fraction is 55 to 60%. Unable to assess regional wall motion abnormality; consider contrast study for better delineation of endocardial borders. DIASTOLIC: Normal diastolic function. ATRIAL SEPTUM: Inadequately seen. LEFT ATRIUM: Normal chamber size. RIGHT ATRIUM: Normal chamber size. RIGHT VENTRICLE: Normal chamber size. Normal right ventricular systolic function. TRICUSPID VALVE: Normal mobility and thickness. No stenosis with trivial regurgitation. No evidence of pulmonary hypertension. RVSP 27 mmHg MITRAL VALVE: Normal mobility and thickness. No evidence of mitral valve stenosis. There is no mitral annular calcification. Trivial mitral regurgitation. AORTIC VALVE: Normal trileaflet appearance. Normal leaflet mobility. No evidence of aortic valve stenosis. Multifocal calcifications. No aortic regurgitation. AORTIC ROOT: Normal diameter and appearance. Ascending aorta is normal in size. PULMONIC VALVE: Normal thickness and mobility. No stenosis. No regurgitation. PERICARDIUM: No evidence of pericardial effusion. IVC: Collapses with inspirations. IVC is normal in size. CONCLUSION: 1. Global left ventricular systolic function is difficult to assess but appears preserved; visually estimated ejection fraction is 55 to 60% 2. Normal right ventricular size and systolic function 3. Normal diastolic function 4. Valves are poorly seen; no significant valvular abnormalities Adult Echocardiography Procedure Report Left Ventricle LVEDD (3.7 - 5.6 cm): 4.83 cm LVESD (2.2 - 4.0 cm): 3.56 cm LVIVS thickness (0.6 - 1.2 cm): 1.39 cm LVPW thickness (0.5 - 1.0 cm): 1.13 cm e': 0.08 m/s E - e': 6.11 LVOT Max Gradient: 2.15 mm[Hg] LVOT Area (cm2): 0.73 m/s Peak Velocity (LVOT): 0.73 m/s Mean Velocity (LVOT): 0.50 m/s LVOT Diameter 1.98 cm Left Atrium LA Volume Index (2D A2C): 34.67 ml/m2 Left Atrium Systolic Dimension: 3.98 cm Mitral Valve MV E to A Ratio: 0.89 Mitral Valve A-Wave Peak Velocity: 0.54 m/s Mitral Valve E-Wave Peak Velocity: 0.48 m/s Right Ventricle Aorta AO Root Diam: 3.17 cm Ascending Ao Diam: 2.78 cm Aortic Valve AoV Area (Peak Thiago): 2.77 cm2, 2.77 cm2 AoV Area (VTI): 2.83 cm2, 2.83 cm2 Peak Velocity(Antegrade Flow): 0.82 m/s Peak Gradient(Antegrade Flow): 2.68 mm[Hg] Mean Velocity(Antegrade Flow): 0.53 m/s Mean Gradient(Antegrade Flow): 1.33 mm[Hg] Velocity Time Integral: 19.77 cm Tricuspid Valve Peak Velocity (Regurgitant Flow): 2.43 m/s Pulmonic Valve Peak Gradient: 3.64 mm[Hg], 4.15 mm[Hg] Right Atrium Right Atrium Systolic Pressure: 59.19 ml, 59.19 ml Dictated by: Ksenia Glasgow M.D. on 12/01/2023 at 15:40 Approved by: Ksenia Glasgow M.D. on 12/01/2023 at 15:45 Dictated By: Ksenia Glasgow M.D. Signed By: 12/01/23 1547 DD/ 1545 TD/TT: Production Inspector: [place] [address] Cardiology Report Signed Patient: CURTIS SMYTH MR#: [id number] : 1940 Acct:[id number] Age/Sex: 83 / M ADM Date: 12/01/23 Loc: CARD Attending Dr: JACOB GAYLE APRN Ordering Physician: ISRA GAYLE APRN Date of Service: 12/01/23 Procedure(s): CA ech o doppler complete Accession Number(s): [id number] cc: Tray Alfaro M.D. ; ISRA GAYLE APRN Patient Name: GLADYS SMYTH MR#: [id number] : 1940 Exam Date: 12/01/2023 Ordering Doctor: VANESSA GAYLE [facility] ECHOCARDIOGRAM REPORT PROCEDURE: CA ECHO DOPPLER COMPLETE INDICATIONS: CAD, hypertension, diabetes COMPARISON: None. DESCRIPTION: COMPLET E ECHOCARDIOGRAM Real-time transthoracic echocardiography wit h 2D, M-mode, spectral and color flow Doppler performed. QUALITY: Technical quality was good. 69 , 250#, BP 114/68 LEFT VENTRICLE: Norm al chamber size. Thickened septal wall. LV EF: Global left ventricular systolic function is difficult to assess but appears preserve d; visually estimated ejection fraction is 55 to 60%. Unable to assess regional wall motion abnormality; consider contrast study for better delineation o f endocardial borders. DIASTOLIC: Normal diastolic function. ATRIAL SEPTUM: Inadequately seen. LEFT ATRIUM: Normal chamber size. RIGHT ATRIUM: Normal chamber size. RIGHT VENTRICLE: Nor mal chamber size. Normal right ventricular systolic function. TRICUSPID VALVE: Nor mal mobility and thickness. No stenosis with trivial regurgitation. No evidence of pulmonary hypertension. RVSP 27 mmHg MITRAL VALVE: Normal mobility and thickness. No evidence of mitral valve stenosis. There is n o mitral annular calcification. Trivial mitral regurgitation. AORTIC VALVE: Normal trileaflet appearance. Normal leaflet mobility. No evidence of aortic v alve stenosis. Multifocal calcifications. No aortic regurgitation. AORTIC ROOT: Normal diameter and appearance. Ascending aorta is normal in size. PULMONIC VALVE: Norm al thickness and mobility. No stenosis. No regurgitation. PERICARDIUM: No evid ence of pericardial effusion. IVC: Collapses with inspirations. IVC is normal in size. CONCLUSION: 1. Global left ventricular systolic function is difficult to assess but appears preserved; visually estimated ejection fraction is 55 to 60% 2. Normal right ventricular size and systolic function 3. Normal diastolic function 4. Valves are poorly seen; no significant valvular abnormalities Adult Echocardiograp hy Procedure Report Left Ventricle LVEDD (3.7 - 5.6 cm) : 4.83 cm LVESD (2.2 - 4.0 cm) : 3.56 cm LVIVS thickness (0.6 - 1.2 cm): 1.39 cm LVPW thickness (0.5 - 1.0 cm): 1.13 cm e': 0.08 m/s E - e': 6.11 LVOT Max Gradient: 2 .15 mm[Hg] LVOT Area (cm2): 0. 73 m/s Peak Velocity (LVOT) : 0.73 m/s Mean Velocity (LVOT) : 0.50 m/s LVOT Diameter 1.98 cm Left Atrium LA Volume Index (2D A2C): 34.67 ml/m2 Left Atrium Systolic Dimension: 3.98 cm Mitral Valve MV E to A Ratio: 0.89 Mitral Valve A-Wave Peak Velocity: 0.54 m/s Mitral Valve E-Wave Peak Velocity: 0.48 m/s Right Ventricle Aorta AO Root Diam: 3.17 cm Ascending Ao Diam: 2 .78 cm Aortic Valve AoV Area (Peak Thiago): 2.77 cm2, 2.77 cm2 AoV Area (VTI): 2.83 cm2, 2.83 cm2 Peak Velocity(Antegr joselin Flow): 0.82 m/s Peak Gradient(Antegr joselin Flow): 2.68 mm[Hg] Mean Velocity(Antegr joselin Flow): 0.53 m/s Mean Gradient(Antegr joselin Flow): 1.33 mm[Hg] Velocity Time Integr al: 19.77 cm Tricuspid Valve Peak Velocity (Regurgitant Flow): 2.43 m/s Pulmonic Valve Peak Gradient: 3.64 mm[Hg], 4.15 mm[Hg] Right Atrium Right Atrium Systoli c Pressure: 59.19 ml, 59.19 ml Dictated by: Ksenia Glasgow M.D. on 12/01/2023 at 15:40 Approved by: Ksenia Glasgow M.D. on 12/01/2023 at 15:45 Dictated By: Ksenia Glasgow M.D. Signed By: 12/01/23 1547 DD/ 1545 TD/TT: Production Inspector: SHMUEL HERNANDEZ W or MICROSCOPIC Reviewed date:12/14/2023 07:06:29 PM Interpretation: Performing Lab: Notes/Report: [facility] , Color Urine YELLOW YELLOW Clarity Urine CLEAR CLEAR Specific [place] Urine 1.015 1.005-1.025 pH Urine 5.5 5.0-9.0 Protein Urine NEGATIVE NEG/TRACE mg/dL Glucose Urine UA NEGATIVE NEGATIVE mg/dL Bilirubin Urine NEGATIVE NEGATIVE Ketones Urine NEGATIVE NEGATIVE mg/dL Blood Urine NEGATIVE NEGATIVE Nitrite Urine NEGATIVE NEGATIVE Urobilinogen Urine 0.2 0.2-1.0 EU/dL Leukocyte Esterase Urine NEGATIVE NEGATIVE WBC Urine NONE SEEN NONE SEEN #/HPF RBC Urine NONE SEEN 0-2 #/HPF Bacteria Urine NONE SEEN NONE SEEN #/HPF Mucus Urine NONE SEEN NONE SEEN Squamous Epithelial Cell Urine RARE NONE/RARE #/LPF Crystals Seen? None Seen None Seen #/HPF Cast Seen? NONE SEEN NONE SEEN #/LPF Performing Lab: see note ML - [facility] CBC no Diff (Hemogram) Reviewed date:05/30/2024 07:24:41 PM Interpretation: Performing Lab: Notes/Report: [facility] , White Blood Count 6.8 4.0-11.0 10 3/uL Red Blood Count 4.15 4.70-6.10 10 6/uL Hemoglobin 14.3 14.0-18.0 g/dL Hematocrit 42.5 42.0-54.0 % Mean Corpuscular Volume 102.4 80.0-94.0 fL Mean Corpuscular Hemoglobin 34.5 25.9-34.0 pg Mean Corpuscular HGB Conc 33.6 29.9-35.2 g/dL Red Cell Distribution Width 13.4 11.0-15.0 % Platelet Count 172 150-450 10 3/uL Mean Platelet Volume 11.2 9.5-13.5 fL Performing Lab: see note - [facility] URINE T PROTEIN CREAT RATIO Reviewed date:05/30/2024 07:24:41 PM Interpretation: Performing Lab: Notes/Report: [facility] , Total Protein Urine Random 16.5 <=11.9 mg/dL Creatinine Urine Random 84.23 20.00-30 0.00 mg/dL Protein Creatinine Ratio Urine 0.20 Performing Lab: see note - [facility] LB URIC ACID SERUM Reviewed date:05/30/2024 07:24:41 PM Interpretation: Performing Lab: Notes/Report: [facility] , Uric Acid 7.5 3.5-7.2 mg/dL Performing Lab: see note - [facility] CT abdomen pelvis w con Reviewed date:09/12/2024 07:49:34 PM Interpretation: Performing Lab: Notes/Report: Source Facility: [facility] [place] [address] [place] [address] CT Scan Report Signed Patient: GLADYS SMYTH MR#: [id number] : 1940 Acct:[id number] Age/Sex: 84 / M ADM Date: 09/12/24 Loc: LAB Attending Dr: Tray Alfaro M.D. Ordering Physician: Tray Alfaro M.D. Date of Service: 09/12/24 Procedure(s): CT abdomen pelvis w con Accession Number(s): [id number] cc: Tray Alfaro M.D. [place] [address] Patient Name: GLADYS SMYTH MRN: [id number] date: 1940 Sex: M Assigned Patient Location: LAB Current Patient Location: LAB Accession/Order Number: [id number] Exam Date: 09/12/2024 12:26 Report Date: 09/12/2024 12:33 At the request of: TRAY ALFARO MD Procedure: CT abdomen pelvis w con CT ABDOMEN AND PELVIS WITH INTRAVENOUS CONTRAST: CLINICAL HISTORY: Appendicitis COMPARISON: CT abdomen and pelvis 09/27/2023 TECHNIQUE: Spiral images were obtained through the abdomen and pelvis following the administration of intravenous contrast. This CT exam was performed using one or more following dose reduction techniques: Automated exposure control, adjustment of the mA and/or kV according to patient size, or use of iterative reconstruction technique. FINDINGS: Lung Bases: [ ]mild fibrotic changes involving the lung bases. Organs:Splenic granulomas. Liver gallbladder portal vein pancreas and adrenal glands appear unremarkable. Atrophic left kidney. Cystic changes right kidney. Aorta appears normal in caliber.[ GI: Stomach is grossly unremarkable. Small bowel appears nondilated. The appendix appears fluid-filled without gross distention or significant inflammatory changes. Remaining colon appears unremarkable.[ Pelvis:[Urinary bladder is grossly unremarkable. Prostate gland is normal in size.] Peritoneum/Retroperitoneum:No free air or free fluid or lymphadenopathy.[ Abd wall/Bones:No acute findings. Osseous structures demonstrate degenerative change.[ CT/CT abdomen pelvis w con IMPRESSION: Interval improvement of the inflammatory changes in the region of the appendix. The appendix still appears to BE fluid filled without gross distention or significant inflammatory change. Mucocele cannot BE excluded. Impression dictated by: Ifeanyi Perez Jr., D.OManohar09/12/2024 12:33 PM Dictation Location: [place] [address] Electronically authenticated by: [id number] Y Date: 09/12/2024 12:33 Dictated By: Ifeanyi Perez M.D. Signed By: 09/12/24 1236 DD/ 1233 TD/TT: Production Inspector: [place] [address] CT Scan Report Signed Patient: CURTIS SMYTH MR#: [id number] : 1940 Acct:[id number] Age/Sex: 84 / M ADM Date: 09/12/24 Loc: LAB Attending Dr: Shereen Alfaro M.D. Ordering Physician: Tray Alfaro M.D. Date of Service: 09/12/24 Procedure(s): CT abd omen pelvis w con Accession Number(s): [id number] cc: Tray Alfaro M.D. [place] [address] Patient Name: GLADYS SMYTH MRN: [id number] date: 1940 Sex: M Assigned Patient Location: LAB Current Patient Location: LAB Accession/Order Numb er: [id number] Exam Date: 09/12/2024 12:26 Report Date: 09/12/2024 12:33 At the request of: TRAY ALFARO MD Procedure: CT abdome n pelvis w con CT ABDOMEN AND PELVI S WITH INTRAVENOUS CONTRAST: CLINICAL HISTORY: Appendicitis COMPARISON: CT abdom en and pelvis 09/27/2023 TECHNIQUE: Spiral im ages were obtained through the abdomen and pelvis following the administration of intravenous contrast. This CT exam was performed using one or more following dose reduction techniques: Automated exposure control, adjustment of the mA and/or kV according to patient size, or use of iterative reconstruction technique. FINDINGS: Lung Bases: [ ]mild fibrotic changes involving the lung bases. Organs:Splenic granulomas. Liver gallbladder portal vein pancreas and adrenal glands appear unremarkable. Atrophic left kidney. Cystic changes right kidney. Aorta appear s normal in caliber.[ GI: Stomach is gross ly unremarkable. Small bowel appears nondilated. The appendix appears fluid-filled without gross distention or significant inflammatory changes . Remaining colon appears unremarkable.[ Pelvis:[Urinary blad iman is grossly unremarkable. Prostate gland is normal in size.] Peritoneum/Retroperi tone um:No free air or free fluid or lymphadenopathy.[ Abd wall/Bones:No ac meg findings. Osseous structures demonstrate degenerative change.[ C T/CT abdomen pelvis w con IMPRESSION: Interval improvement of the inflammatory changes in the region of the appendix. The append ix still appears to BE fluid filled without gross distention or significant inflammatory change. Mucocele cannot BE excluded. Impression dictated by: Ifeanyi Perez Jr., D.OManohar09/12/2024 12:33 PM Dictation Location: [place] [address] Electronically authenticated by: [id number] Y Date: 09/12/2024 12:33 Dictated By: Ifeanyi Perez M.D. Signed By: 09/12/24 1236 DD/ 1233 TD/TT: Production Inspector: UA RANDOM W or MICROSCOPIC Reviewed date:05/30/2024 07:24:41 PM Interpretation: Performing Lab: Notes/Report: [facility] , Color Urine LT. YELLOW YELLOW Clarity Urine CLEAR CLEAR Specific [place] Urine 1.015 1.005-1.025 pH Urine 6.0 5.0-9.0 Protein Urine NEGATIVE NEG/TRACE mg/dL Glucose Urine UA NEGATIVE NEGATIVE mg/dL Bilirubin Urine NEGATIVE NEGATIVE Ketones Urine NEGATIVE NEGATIVE mg/dL Blood Urine NEGATIVE NEGATIVE Nitrite Urine NEGATIVE NEGATIVE Urobilinogen Urine 0.2 0.2-1.0 EU/dL Leukocyte Esterase Urine NEGATIVE NEGATIVE WBC Urine NONE SEEN NONE SEEN #/HPF RBC Urine NONE SEEN 0-2 #/HPF Bacteria Urine NONE SEEN NONE SEEN #/HPF Mucus Urine NONE SEEN NONE SEEN Squamous Epithelial Cell Urine RARE NONE/RARE #/LPF Performing Lab: see note ML - [facility] LB RENAL FUNCTION PANEL Reviewed date:05/30/2024 07:24:41 PM Interpretation: Performing Lab: Notes/Report: [facility] , Sodium 144 136-145 mmol/L Potassium 4.7 3.5-5.1 mmol/L Chloride 108 98-107 mmol/L Carbon Dioxide 23.6 21.0-32.0 mmol/L Anion Gap 17.1 Glucose 145 74-106 mg/dL Blood Urea Nitrogen 22.0 7.0-18.0 mg/dL Creatinine 1.82 0.70-1.30 mg/dL Estimated GFR ( Yana 44 >=60 mL/min/1.73m 2 Estimated GFR (Non- Lisa 36 >=60 mL/min/1.73m 2 BUN Creatinine Ratio 12.1 Calcium 8.3 8.5-10.1 mg/dL Phosphorus 3.1 2.6-4.7 mg/dL Albumin Level 3.4 3.4-5.0 g/dL Performing Lab: see note ML - [facility] LB MAGNESIUM Reviewed date:05/30/2024 07:24:41 PM Interpretation: Performing Lab: Notes/Report: [facility] , Magnesium 1.9 1.8-2.4 mg/dL Performing Lab: see note ML - [facility] LB Occult Blood* Reviewed date:03/29/2024 08:37:00 PM Interpretation: Performing Lab: Notes/Report: [facility] , Occult Blood Positive Performing Lab: see note ML - [facility] LB PSA Total+% Free Reviewed date:03/29/2024 08:37:00 PM Interpretation: Performing Lab: Notes/Report: [facility] , Prostate Specific Ag 6.2 0.0-4.0 ng/mL Brenda ECLIA methodology. According to the [place] [employer], Serum [...] the presence or absence of malignant disease. PSA, Free 0.99 N/A ng/mL Brenda ECLIA methodology. % Free PSA 16.0 . % The table below lists the probability of [...] for any other population of men. Performed at: - [facility] [id number] Neuropsychiatric Aide: Lee Bob PhD, Phone: [phone] Performing Lab: see note - [facility] LB TSH Reviewed date:03/28/2024 09:25:13 PM Interpretation: Performing Lab: Notes/Report: [facility] , Thyroid Stimulating Hormone 0.837 0.358-3.740 uIU/mL Performing Lab: see note ML - [facility] PROF 14(COMP METB) Reviewed date:03/28/2024 09:25:13 PM Interpretation: Performing Lab: Notes/Report: [facility] , Sodium 138 136-145 mmol/L Potassium 4.8 3.5-5.1 mmol/L Chloride 105 98-107 mmol/L Carbon Dioxide 25.0 21.0-32.0 mmol/L Anion Gap 12.8 Glucose 116 74-106 mg/dL Blood Urea Nitrogen 19.0 7.0-18.0 mg/dL Creatinine 1.73 0.70-1.30 mg/dL Estimated GFR ( Yana 46 >=60 mL/min/1.73m 2 Estimated GFR (Non- Lisa 38 >=60 mL/min/1.73m 2 BUN Creatinine Ratio 11.0 Calcium 9.2 8.5-10.1 mg/dL Bilirubin Total 0.6 0.2-1.0 mg/dL Aspartate Amino Transferase 20 15-37 U/L Alanine Aminotransferase 30 16-63 U/L Alkaline Phosphatase 78 46-116 U/L Total Protein 6.6 6.4-8.2 g/dL Albumin Level 3.3 3.4-5.0 g/dL Globulin 3.3 Albumin Globulin Ratio 1.0 Performing Lab: see note ML - [facility] FREE T4 Reviewed date:03/28/2024 09:25:13 PM Interpretation: Performing Lab: Notes/Report: [facility] , Free T4 1.12 0.76-1.46 ng/dL Performing Lab: see note ML - [facility] LB FREE T3 Reviewed date:03/28/2024 09:25:13 PM Interpretation: Performing Lab: Notes/Report: [facility] , Free T3 2.43 2.18-3.98 pg/mL Performing Lab: see note ML - [facility] LB PTH, Intact Reviewed date:12/15/2023 12:34:34 PM Interpretation: Performing Lab: Notes/Report: [facility] , PTH, Intact 50 15-65 pg/mL Performed at: [facility] [id number] Neuropsychiatric Aide: Lee Bob PhD, Phone: [phone] Performing Lab: see note - [facility] LB CBC no Diff (Hemogram) Reviewed date:12/14/2023 07:06:29 PM Interpretation: Performing Lab: Notes/Report: [facility] , White Blood Count 6.2 4.0-11.0 10 3/uL Red Blood Count 4.15 4.70-6.10 10 6/uL Hemoglobin 14.0 14.0-18.0 g/dL Hematocrit 41.9 42.0-54.0 % Mean Corpuscular Volume 101.0 80.0-94.0 fL Mean Corpuscular Hemoglobin 33.7 25.9-34.0 pg Mean Corpuscular HGB Conc 33.4 29.9-35.2 g/dL Red Cell Distribution Width 12.9 11.0-15.0 % Platelet Count 168 150-450 10 3/uL Mean Platelet Volume 11.2 9.5-13.5 fL Performing Lab: see note ML - [facility] LB VITAMIN D 25 [place] Reviewed date:12/14/2023 07:06:29 PM Interpretation: Performing Lab: Notes/Report: [facility] , Vitamin D 66.1 <20 ng/mL Vit D deficient 20-<30 ng/mL Vit D insufficient 30-100 ng/mL Vit D sufficient >100 ng/mL Potential Toxicity Performing Lab: see note ML - [facility] LB URINE T PROTEIN CREAT RATIO Reviewed date:12/14/2023 07:06:29 PM Interpretation: Performing Lab: Notes/Report: [facility] , Total Protein Urine Random 10.9 <=11.9 mg/dL Creatinine Urine Random 71.05 20.00-30 0.00 mg/dL Protein Creatinine Ratio Urine 0.15 Performing Lab: see note ML - [facility] LB URIC ACID SERUM Reviewed date:12/14/2023 07:06:29 PM Interpretation: Performing Lab: Notes/Report: [facility] , Uric Acid 6.4 3.5-7.2 mg/dL Performing Lab: see note ML - [facility] LB RENAL FUNCTION PANEL Reviewed date:12/14/2023 07:06:29 PM Interpretation: Performing Lab: Notes/Report: [facility] , Sodium 140 136-145 mmol/L Potassium 4.6 3.5-5.1 mmol/L Chloride 106 98-107 mmol/L Carbon Dioxide 24.0 21.0-32.0 mmol/L Anion Gap 14.6 Glucose 155 74-106 mg/dL Blood Urea Nitrogen 21.0 7.0-18.0 mg/dL Creatinine 1.84 0.70-1.30 mg/dL Estimated GFR ( Yana 43 >=60 Estimated GFR (Non- Lisa 35 >=60 BUN Creatinine Ratio 11.4 Calcium 8.5 8.5-10.1 mg/dL Phosphorus 3.5 2.6-4.7 mg/dL Albumin Level 3.3 3.4-5.0 g/dL Performing Lab: see note ML - [facility] LB MAGNESIUM Reviewed date:12/14/2023 07:06:29 PM Interpretation: Performing Lab: Notes/Report: [facility] , Magnesium 1.7 1.8-2.4 mg/dL Performing Lab: see note ML - [facility] LB IRON AND TIBC Reviewed date:12/14/2023 07:06:29 PM Interpretation: Performing Lab: Notes/Report: [facility] , Iron 101.0 65.0-175.0 ug/dL Total Iron Binding Capacity 279.0 250.0-450.0 ug/dL Percent Iron Saturation 36.2 Performing Lab: see note ML - [facility] LB FERRITIN Reviewed date:12/14/2023 07:06:29 PM Interpretation: Performing Lab: Notes/Report: [facility] , Ferritin 111.0 26.0-388.0 ng/mL Performing Lab: see note ML - [facility] LB CREATININE Reviewed date:09/12/2024 07:49:34 PM Interpretation: Performing Lab: Notes/Report: [facility] , Creatinine 1.71 0.70-1.30 mg/dL Estimated GFR ( Yana 47 >=60 mL/min/1.73m 2 Estimated GFR (Non- Lisa 39 >=60 mL/min/1.73m 2 Performing Lab: see note ML - [facility] LB LIPID PROFILE Reviewed date:03/28/2024 09:25:13 PM Interpretation: Performing Lab: Notes/Report: [facility] , Triglycerides 85 <=150 mg/dL Cholesterol 104 <=200 mg/dL HDL Cholesterol 42 40-60 mg/dL > or =60 mg/dl - LOW CARDIOVASCULAR RISK <40 mg/dl - HIGH CARDIOVASCULAR RISK LDL Cholesterol Calculated 45.0 <100 mg/dl OPTIMAL 100-129 mg/dl NEAR OR ABOVE OPTIMAL 130-159 mg/dl BORDERLINE HIGH 160-189 mg/dl HIGH >190 mg/dl VERY HIGH VLDL CHOLESTEROL 17.0 Chol HDL Ratio 2.5 3.3 - 4.4 LOW RISK 4.4 - 7.1 AVERAGE RISK 7.1 - 11.0 MODERATE RISK >11.0 HIGH RISK Performing Lab: see note ML - [facility] LB GLYCOHEMOGLOBIN A1C Reviewed date:03/28/2024 09:25:13 PM Interpretation: Performing Lab: Notes/Report: [facility] , Glycohemoglobin A1C 6.9 4.5-6.2 % ADA RECOMMENDED LIMIT 4.0 - 6.0 ADA THERAPEUTIC TARGET < 7.0 ACTION SUGGESTED > 7.0 Estimated Average Glucose 151 Performing Lab: see note ML - [facility] LB CBC AUTO DIFF Reviewed date:03/28/2024 09:25:13 PM Interpretation: Performing Lab: Notes/Report: [facility] , White Blood Count 6.3 4.0-11.0 10 3/uL Red Blood Count 3.94 4.70-6.10 10 6/uL Hemoglobin 13.3 14.0-18.0 g/dL Hematocrit 40.2 42.0-54.0 % Mean Corpuscular Volume 102.0 80.0-94.0 fL Mean Corpuscular Hemoglobin 33.8 25.9-34.0 pg Mean Corpuscular HGB Conc 33.1 29.9-35.2 g/dL Red Cell Distribution Width 13.0 11.0-15.0 % Platelet Count 168 150-450 10 3/uL Mean Platelet Volume 10.6 9.5-13.5 fL Neutrophils Percent Auto 71.4 43.0-75.0 % Lymphocytes Percent Auto 16.2 20.5-60.0 % Monocytes Percent Auto 8.1 1.7-12.0 % Eosinophils Percent Auto 3.2 0.9-7.0 % Basophils Percent Auto 0.5 0.2-2.0 % Immature Granulocytes Pct Auto 0.6 0.0-0.5 % Neutrophils Absolute Auto 4.5 1.4-6.5 10 3/uL Lymphocytes Absolute Auto 1.0 1.2-3.8 10 3/uL Monocytes Absolute Auto 0.5 0.3-0.8 10 3/uL Eosinophils Absolute Auto 0.2 0.0-0.7 10 3/uL Basophils Absolute Auto 0.0 0.0-0.1 10 3/uL Immature Granulocytes Abs Auto 0.04 0.00-0.03 10 3/uL Performing Lab: see note ML - [facility] COVID-19, Flu A+B IH Reviewed date:08/20/2024 02:02:41 PM Interpretation: Performing Lab: Notes/Report: COVID - FLU A + FLU B - Control + XR ankle LT min 3V Reviewed date:06/11/2024 02:13:25 PM Interpretation: Performing Lab: Notes/Report: Source Facility: [place] [address] [place] [address] XRay Report Signed Patient: GLADYS SMYTH MR#: [id number] : 1940 Acct:[id number] Age/Sex: 83 / M ADM Date: 06/07/24 Loc: RAD Attending Dr: Tray Alfaro M.D. Ordering Physician: Tray Alfaro M.D. Date of Service: 06/07/24 Procedure(s): XR ankle LT min 3V Accession Number(s): [id number] cc: Tray Alfaro M.D. [place] [address] Patient Name: GLADYS SMYTH MRN: [id number] date: 1940 Sex: M Assigned Patient Location: RAD Current Patient Location: US Accession/Order Number: [id number] Exam Date: 06/07/2024 12:17 Report Date: 06/11/2024 07:14 At the request of: TRAY ALFARO Procedure: XR ankle LT min 3V PROCEDURE: XR ankle LT min 3V COMPARISON: None. HISTORY: Left ankle pain, M25.752 FINDINGS: BONES:No acute fracture or dislocation. Moderate degenerative changes with marginal osteophyte formation. Moderate enthesopathic spurring of the calcaneus SOFT TISSUES:Negative. No visible soft tissue swelling. EFFUSION:None visible. OTHER: Intensive vascular calcifications XR/XR ankle LT min 3V IMPRESSION: Moderate degenerative changes Electronically authenticated by: TYLER MONSIVAIS Date: 06/11/2024 07:14 Dictated By: Tyler Monsivais M.D. Signed By: 06/11/24716 DD/ 3 TD/TT: Production Inspector: [place] [address] XRay Report Signed Patient: CURTIS SMYTH MR#: [id number] : 1940 Acct:[id number] Age/Sex: 83 / M ADM Date: 06/07/24 Loc: RAD Attending Dr: Shereen Alfaro M.D. Ordering Physician: Tray Alfaro M.D. Date of Service: 06/07/24 Procedure(s): XR ank le LT min 3V Accession Number(s): [id number] cc: Tray Alfaro M.D. [address] [address] Patient Name: GLADYS SMYTH MRN: [id number] date: 1940 Sex: M Assigned Patient [facility]: [facility] Current Patient Location: [place] Accession/Order Numb er: [id number] Exam Date: 12:17 Report Date: 06/11/2024 07:14 At the request of: TRAY ALFARO Procedure: XR ankle LT min 3V PROCEDURE: XR ankle LT min 3V COMPARISON: None. HISTORY: Left ankle pain, M25.752 FINDINGS: BONES:No acute fract ure or dislocation. Moderate degenerative changes with marginal osteophyte formation. Moderate enthesopathic spurring of the calcaneus SOFT TISSUES:Negativ e. No visible soft tissue swelling. EFFUSION:None visible. OTHER: Intensive vascular calcifications X R/XR ankle LT min 3V IMPRESSION: Moderate degenerativ e changes Electronically authenticated by: TYLER MONSIVAIS Date: 06/11/2024 07:14 Dictated By: Riley Monsivais M.D. Signed By: 06/11/24716 DD/ 3 TD/TT: Production Inspector: PTH, Intact Reviewed date:05/31/2024 12:45:04 PM Interpretation: Performing Lab: Notes/Report: [facility] , PTH, Intact 61 15-65 pg/mL Performed at: - [facility] [address] [id number] Neuropsychiatric Aide: Lee Bob PhD, Phone: [phone] Performing Lab: see note - [facility] LB VITAMIN D 25 [place] Reviewed date:05/30/2024 07:24:41 PM Interpretation: Performing Lab: Notes/Report: [facility] , Vitamin D 64.6 <20 ng/mL Vit D deficient 20-<30 ng/mL Vit D insufficient 30-100 ng/mL Vit D sufficient >100 ng/mL Potential Toxicity Performing Lab: see note ML - [facility] US renal BI Reviewed date:06/11/2024 02:13:25 PM Interpretation: Performing Lab: Notes/Report: Source Facility: [facility]-[address] [place] [address] [place] [address] Ultrasound Report Signed Patient: GLADYS SMYTH MR#: [id number] : 1940 Acct:[id number] Age/Sex: 83 / M ADM Date: 06/11/24 Loc: US Attending Dr: Srinivas Olivares M.D. Ordering Physician: Srinivas Olivares M.D. Date of Service: 06/11/24 Procedure(s): US renal BI Accession Number(s): [id number] cc: Srinivas Olivares M.D.; Tray Alfaro M.D. The [address] [address] Patient Name: GLADYS SMYTH MRN: [id number] date: 1940 Sex: M Assigned Patient Location: US Current Patient Location: US Accession/Order Number: [id number] Exam Date: 06/11/2024 07:00 Report Date: 06/11/2024 07:48 At the request of: SRINIVAS OLIVARES Procedure: US renal BI EXAMINATION: US renal BI HISTORY: Kidney Stone N20.0 COMPARISON: No relevant comparison available. TECHNIQUE: Ultrasound examination was performed of the bladder. FINDINGS: Right Kidney: Normal in size, contour and cortical echotexture. The cortex measures 1.2 cm. Multiple echogenic foci measuring up to 6 mm, nonobstructing nephrolithiasis. Area of anechoic echogenicity measuring 2.4 cm, simple cysts. No hydronephrosis or solid cortical mass Height: 6.35 cm Length: 12.97 cm Width: 6.83 cm Left Kidney: Normal in size and contour. The cortex is thinned measuring 0.8 cm. No solid cortical mass, hydronephrosis or obstructing nephrolithiasis. Height: 4.71 cm Length: 9.45 cm Width: 3.60 cm Urinary bladder: 87 mL US/US renal BI IMPRESSION: Right nonobstructing nephrolithiasis Left renal cortical atrophy Electronically authenticated by: TYLER MONSIVAIS Date: 06/11/2024 07:48 Dictated By: Tyler Monsivais M.D. Signed By: 06/11/24 0751 DD/ 0748 TD/TT: Production Inspector: The [address] [address] Ultrasound Report Signed Patient: CURTIS SMYTH MR#: [id number] : 1940 Acct:[id number] Age/Sex: 83 / M ADM Date: 06/11/24 Loc: US Attending Dr: Lisa Maza Ordering Physician: Srinivas Olivares M.D. Date of Service: 06/11/24 Procedure(s): US shar al BI Accession Number(s): [id number] cc: Srinivas Olivares M.D; Tray Alfaro M.D. [address] [address] Patient Name: GLADYS SMYTH MRN: [id number] date: 1940 Sex: M Assigned Patient Location: US Current Patient Location: US Accession/Order Numb er: [id number] Exam Date: 07:00 Report Date: 06/11/2024 07:48 At the request of: SRINIVAS OLIVARES Procedure: US renal BI EXAMINATION: US renal BI HISTORY: Kidney Ston e N20.0 COMPARISON: No relev ant comparison available. TECHNIQUE: Ultrasoun d examination was performed of the bladder. FINDINGS: Right Kidney: Normal in size, contour and cortical echotexture. The cortex measures 1.2 cm. Multiple echogenic foci measuring up to 6 mm, nonobstructing nephrolithiasis. Are a of anechoic echogenicity measuring 2.4 cm, simple cysts. No hydronephrosis or solid cortical mass Height: 6.35 cm Amy th: 12.97 cm Width: 6.83 cm Left Kidney: Normal in size and contour. The cortex is thinned measuring 0.8 cm. No solid cortica l mass, hydronephrosis or obstructing nephrolithiasis. Height: 4.71 cm Amy th: 9.45 cm Width: 3.60 cm Urinary bladder: 87 mL U S/US renal BI IMPRESSION: Right nonobstructing nephrolithiasis Left renal cortical atrophy Electronically authenticated by: TYLER MONSIVAIS Date: 06/11/2024 07:48 Dictated By: Riley Monsivais M.D. Signed By: 06/11/24 0751 DD/ 0748 TD/TT: Production Inspector: Reason For Referral No Information Medications Medication SIG (Take, Route, Frequency, Duration) Notes Start Date End Date Status Atorvastatin Calcium 80 MG 1 tablet Oral ly Once a day Active Vitamin D3 125 MCG (5000 UT) 1 capsule Orally Daily Activ e B Complex - as directed Orally Daily Active amLODIPine Besylate 2.5 MG 1 tablet Oral ly Once a day for 90 days Active Terbinafine HCl 250 MG 1 tablet Orally O nce a day for 30 days 03/07/2024 Active Aspirin 81 81 MG 1 tablet Orally Once a day Active Triamcinolone Acetonide 0.1 % 1 application Externally Two times a Week Active Accu-Chek Multiclix Lancets Use 1 lancet once daily to test blood sugar. Dx: E11.9 for 100 days Active Spiriva Respimat 2.5 MCG/ACT 2 puffs Inhalation QD for 90 days Active Albuterol Sulfate 108 (90 Base) MCG/ACT 2 puffs as needed for SOB Inhalation Q4H for 30 days Active Accu-Chek Nevaeh Plus - Use 1 strip once daily to test blood sugar In Vitro for 100 days Dx: E11.9 Active Ranolazine ER 500 MG 1 tablet Orally Twi ce a day for 90 days Active Januvia 100 MG TAKE 1 TABLET BY GAB TH ONCE DAILY for 90 days Active Glucosamine Chondr 500 Complex - as directed Orally BID Activ e Lisinopril 20 MG 1 tablet Orally Once a day Active Magnesium Oxide 400 MG 1 tablet as neede d Orally Once a day Active Levsin/SL 0.125 MG 1 tablet under the t ongue and allow to dissolve as needed Sublingual AC and HS 07/19/2023 Active Liothyronine Sodium 5 MCG TAKE 1 TABLET BY MOUTH ONCE DAILY for 90 Active Ketoconazole 2 % 1 application City [employer] ally Once a day Active Levothyroxine Sodium 50 MCG TAKE 1 TABLE T BY MOUTH ONCE DAILY IN THE MORNING ON AN EMPTY STOMACH for 90 Active Isosorbide Mononitrate ER 120 MG 2 tablets Orally Once a day for 90 days Active Glimepiride 2 MG 1 tablet Orally twic e daily for 90 days Active Nitrostat 0.4 MG as directed Sublingual Active Pioglitazone HCl 15 MG TAKE 1 TABLET BY MOUTH ONCE DAILY for 90 days Active Metoprolol Tartrate 50 MG 1 tablet with food Orally Twice a day Active Immunizations Vaccine Route Administration Date Status Comme nts Arexvy Unknown 03/06/2024 Administered FastModel SportsmatildaShieldEffect Syringe Pre-Filled 30 mcg/0.3 mL Unknown 03/06/2024 Administered Flu, Fluad (2439-5822) (26231) 65 yrs+, single-dose syringe IM Intramuscular 03/23/2023 Administered Flu, Fluad (74786) 65 yrs + High Dose Seasonal (5361-8862) Unknown 03/06/2024 Administered Pneumococcal (Prevnar 13) Unknown 04/05/2017 Administer ed Pneumococcal (Prevnar 20) Unknown 05/02/2023 Administer ed Spikevax Moderna Syringe Pre-Filled 50 mcg/0.5 mL Unknown 03/24/2023 Administered Tdap (Boostrix) Unknown 05/02/2023 Administered ZOSTER (SHINGLES) VACCINE (HZV) Unknown 02/05/2020 Administered Social History Tobacco Use: Social History Observation [...] Tobacco non-user Ex -moderate cigarette smoker (10-19/day) AUDIT-C (Standard) Question Answer Notes Did you have a drink containing alcohol in the p ast year? No Points 0 Interpretation Negative Problems Problem Type SNOMED Code ICD Code Onset Dates Problem Status W/U Status Risk Notes Problem Chronic kidney disease (711036110) Chronic kidney disease, unspecified (N18.9) Active confirmed Problem Morbid obesity (disorder) (657047618) Morbid (severe) obesity due to excess calories (E66.01) Active confirmed Problem Hypocalcemia (6935623) Hypocalcemia (E83.51) Active confirmed Problem Disorder of prostate (72088661) Disorder of prostate, unspecified (N42.9) Active confirmed Problem Weakness (93476782) Weakness (R53.1) Active confirmed Problem Onychomycosis caused by dermatophyte (736843314) OM (onychomycosis) (B35.1) Active confirmed Problem Hyperlipidemia (42102502) Hyperlipidemia (E78.5) Active confirmed Problem Hypertension (75261652) Hypertension (I10) Active confirmed Problem COPD - Chronic obstructive pulmonary disease (00419634) COPD (chronic obstructive pulmonary disease) (J44.9) Active confirmed Problem Hypothyroidism (43324029) Hypothyroidism (E03.9) Active confirmed Problem Carpal tunnel syndrome (80834672) Carpal tunnel syndrome (G56.00) Active confirmed Problem Coronary artery disease (43551978) CAD (coronary artery disease) (I25.10) Active confirmed Problem Coronary artery disease (94119108) Coronary artery disease (I25.10) Active confirmed Problem Left ventricular hypertrophy (38125878) Left ventricular hypertrophy (I51.7) Active confirmed Problem Diabetes mellitus type 2 (disorder) (20048602) DM2 (diabetes mellitus, type 2) (E11.9) Active confirmed Problem Nephrolithiasis (17104013) Nephrolithiasis (N20.0) Active confirmed Problem Right lower quadrant pain (852678037) Right lower quadrant abdominal pain (R10.31) Active confirmed Problem Acquired hypothyroidism (054361683) Acquired hypothyroidism (E03.9) Active confirmed Problem Appendicitis (55047642) Appendicitis (K37) Active confirmed Problem Obstructive uropathy (4322026) Obstructive uropathy (N13.9) Active confirmed Problem Pre-surgery evaluation (580005189) Pre-op exam (Z01.818) Active confirmed Problem Diverticulitis (96769241) Diverticulitis (K57.92) Active confirmed Problem Hemorrhoids (31686733) Hemorrhoids (K64.9) Active confirmed Problem Pyelonephritis (10810872) Pyelonephritis (N12) Active confirmed Problem Arthralgia of the ankle and/or foot (484266080) Left ankle pain (M25.572) Active confirmed Problem Acute sinusitis (40075351) Acute sinus infection (J01.90) Active confirmed Problem Benign prostatic hyperplasia (688007049) Benign prostatic hyperplasia (N40.0) Active confirmed Problem Overweight (072261130) Over weight (E66.3) Active confirmed Problem Dyshidrotic eczema (294901253) 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) Active confirmed Problem Hydronephrosis (14763182) Hydronephrosis (N13.30) Active confirmed Problem Ex-tobacco user (finding) (126973328) History of tobacco abuse (Z87.891) Active confirmed Problem Old myocardial infarction (9322278) History of ST elevation myocardial infarction (STEMI) (I25.2) Active confirmed Problem Adenocarcinoma of prostate (631973135) Adenocarcinoma of prostate (C61) Active confirmed Problem Cholesteatoma (485315) Cholesteatoma (H71.90) Active confirmed Problem Shoulder impingement syndrome (647727976) Shoulder impingement syndrome (M75.40) Active confirmed Problem Benign neoplasm of colon (12845476) Colon polyp, hyperplastic (K63.5) Active confirmed Problem Leukocytosis (627137475) Elevated WBCs (D72.829) Active confirmed Problem Essential hypertension (36207614) BP (high blood pressure) (I10) Active confirmed Problem Acute nontraumatic kidney injury (329252225100841) Acute nontraumatic kidney injury (N17.9) Active confirmed Problem 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) Active confirmed Problem Diabetes mellitus (26650501) Diabetes mellitus (E11.9) Active confirmed Problem Chronic kidney disease stage 3B (disorder) (160953165) Chronic kidney disease, stage 3b (N18.32) Active confirmed Vital Signs Heart Rate 73 /min 04/18/2024 Temperature 101.2 degrees Fahrenheit 08/20/2024 Respiratory Rate 18 /min 04/18/2024 Oximetry 93 % 04/18/2024 Blood pressure diastolic 66 mm Hg 09/05/2024 Height 69 in 09/05/2024 Blood pressure systolic 134 mm Hg 09/05/2024 Weight 265.6 lbs 09/05/2024 BMI 39.22 kg/m2 09/05/2024 Encounters Encounter Location Date Provider Diagnosis [facility] [address] [place] [address] 04/18/2024 Jay Doty COPD (chronic obstructive pulmonary disease) J44.9 and History of tobacco abuse Z87.891 [facility] [address] [place] [address] 12/07/2023 TRAY HOY Hypertension I10 ; D M2 (diabetes mellitus, type 2) E11.9 ; Hypothyroidism E03.9 and Hyperlipidemia E78.5 [facility] [address] [place] [address] 03/07/2024 Jose Hoy Onychomycosis B35.1 ; DM2 (diabetes mellitus, type 2) E11.9 ; Hypothyroidism E03.9 ; Hypertension I10 and COPD (chronic obstructive pulmonary disease) J44.9 [facility] [address] [place] [address] 09/05/2024 Jose Alfaro DM2 (diabetes mell [place], type 2) E11.9 ; Hypothyroidism E03.9 ; Hyperlipidemia E78.5 ; Hypertension I10 and Appendicitis K37 [facility] [address] [place] [address] 08/03/2024 Jose Alfaro Chronic kidney disea se, stage 3b N18.32 ; DM2 (diabetes mellitus, type 2) E11.9 ; Diabetes mellitus E11.9 ; Morbid (severe) obesity due to excess calories E66.01 ; 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 ; COPD (chronic obstructive pulmonary disease) J44.9 and De Quervain's disease (tenosynovitis) M65.4 [facility] [address] [place] [address] 08/20/2024 Jose Alfaro Fever R50.9 and Acut e bronchitis, unspecified organism J20.9 [facility] [address] [place] [address] 06/07/2024 Jose Alfaro Left ankle pain M25. 572 ; DM2 (diabetes mellitus, type 2) E11.9 ; Hypothyroidism E03.9 ; Hyperlipidemia E78.5 ; COPD (chronic obstructive pulmonary disease) J44.9 and BP (high blood pressure) I10 [facility] [address] [place] [address] 03/29/2024 Jose Alfaro [facility] [address] [place] [address] 06/11/2024 Jose Alfaro [facility] [address] [place] [address] 09/06/2024 Jose Alfaro Encounter for other preprocedural examination Z01.818 [facility] [address] [place] [address] 09/12/2024 Jose Alfaro [facility] [address] [place] [address] 01/05/2024 Jay Doty [facility] [address] [place] [address] 02/28/2024 Jose Alfaro [facility] [address] [place] [address] 03/26/2024 Jose Alfaro Wellness examination Z01.89 [facility] [address] [place] [address] 03/28/2024 Jose Alfaro Assessments Encounter Date Diagnosis (ICD Code) Assessment Notes Treatment Notes Treatment Clinical Notes Section Notes 12/07/2023 DM2 (diabetes mellitus, type 2) (ICD-10 - E11.9) 03/07/2024 Onychomycosis (ICD-10 - B35.1) treating 12/07/2023 Hypertension (ICD-10 - I10) 03/07/2024 DM2 (diabetes mellitus, type 2) (ICD-10 - E11.9) decent contrl 04/18/2024 COPD (chronic obstructive pulmonary disease) (ICD-10 - J44.9) He continues to maintaing good control on Spiriva without any exacerbations and occasional albuterol use (~once a month). Will continue Spiriva and albuterol for now - refilled inhalers today. F/U 1 year or PRN 04/18/2024 History of tobacco abuse (ICD-10 - Z87.891) This patient does not meet current LDCT criteria (e.g. age, time from cessation, # pack-years). 06/07/2024 DM2 (diabetes mellitus, type 2) (ICD-10 - E11.9) 06/07/2024 Left ankle pain (ICD-10 - M25.572) 09/05/2024 Hypothyroidism (ICD-10 - E03.9) 09/05/2024 DM2 (diabetes mellitus, type 2) (ICD-10 - E11.9) 08/03/2024 DM2 (diabetes mellitus, type 2) (ICD-10 - E11.9) 03/26/2024 Wellness examination (ICD-10 - Z01.89) 09/06/2024 Encounter for other preprocedural examination (ICD-10 - Z01.818) 08/03/2024 Chronic kidney disease, stage 3b (ICD-10 - N18.32) following labs 08/20/2024 Fever (ICD-10 - R50.9) 08/20/2024 Acute bronchitis, unspecified organism (ICD-10 - J20.9) Rest and drink more liquids, especially water. You may use a humidifier or vaporizer to help keep the drainage moist. Gavs-fcc-uwgtsig Nasal Saline may help the stuffy and runny nose. Use Ibuprofen and or Tylenol as needed for fever, chills, body aches or pain. Children 5 years old should not be given vkqc-wmp-bfqabyl cough and cold medications such as guaifenesin and dextromethorphan. If you're over age 5, you may try gtyb-ejl-recxkuu cold medications such as guaifenesin and dextromethorphan, or multi-symptom cold reliever such as Dayquil to help reduce the symptoms. Antibiotics have been prescribed. You should take these until completed and follow the directions. Antibiotics can sometimes cause upset stomach, and in rare cases, serious allergic reactions or serious gastrointestinal problems. If you start having severe abdominal pain, severe vomiting, or bloody diarrhea, you should be reevaluated by your physician or urgent care immediately. Follow up with your Primary Care Provider or return to clinic if symptoms do not improve within 3-5 days. If you develop severe symptoms such as shortness of breath, repeated vomiting, coughing up blood, or chest pain you should go to the emergency room or call 911 08/03/2024 Diabetes mellitus (ICD-10 - E11.9) [facility] 06/07/2024 Hypothyroidism (ICD-10 - E03.9) 09/05/2024 Hyperlipidemia (ICD-10 - E78.5) 12/07/2023 Hypothyroidism (ICD-10 - E03.9) 03/07/2024 Hypothyroidism (ICD-10 - E03.9) 03/07/2024 Hypertension (ICD-10 - I10) 12/07/2023 Hyperlipidemia (ICD-10 - E78.5) 09/05/2024 Hypertension (ICD-10 - I10) 06/07/2024 Hyperlipidemia (ICD-10 - E78.5) 08/03/2024 Morbid (severe) obesity due to excess calories (ICD-10 - E66.01) watvhindiet 09/05/2024 Appendicitis (ICD-10 - K37) 08/03/2024 Chronic kidney disease due to diabetes mellitus (ICD-10 - E11.22) 06/07/2024 COPD (chronic obstructive pulmonary disease) (ICD-10 - J44.9) 03/07/2024 COPD (chronic obstructive pulmonary disease) (ICD-10 - J44.9) 06/07/2024 BP (high blood pressure) (ICD-10 - I10) 08/03/2024 COPD (chronic obstructive pulmonary disease) (ICD-10 - J44.9) 08/03/2024 De Quervain's disease (tenosynovitis) (ICD-10 - M65.4) 04/18/2024 Other Plan Of Treatment Pending Test Test Name Order Date CMP (COMPLETE METABOLIC PANEL) 3 CMP (COMPLETE METABOLIC PANEL) 3 CMP (COMPLETE METABOLIC PANEL) 4 HEMOGLOBIN A1C (GLYCO) 11/03/2022 HEMOGLOBIN A1C (GLYCO) 03/23/2023 HEMOGLOBIN A1C (GLYCO) 09/05/2024 INSULIN, TOTAL 11/03/2022 LIPID PANEL (CHOL/TRIG/HDL/LDL) 03/23/20 23 LIPID PANEL (CHOL/TRIG/HDL/LDL) 11/04/19 LIPID PANEL (CHOL/TRIG/HDL/LDL) 09/06/19 25 CBC WITH DIFF 11/03/2022 CBC WITH DIFF 03/23/2023 PSA, PROSTATE-SPECIFIC ANTIGEN 3 PSA, PROSTATE-SPECIFIC ANTIGEN 3 URIC ACID 11/03/2022 CT Abdomen and Pelvis w/contrast * 07/19 T3 FREE, T4 FREE and TSH 03/26/2024 PROSTATIC SPEC ANT 11/10/2022 FECAL OCCULT BLOOD 03/26/2024 CT ABD and PELV W CON 09/05/2024 XR ANKLE LT MIN 3 V 06/07/2024 THYROID PANEL (T4/TSH/FREE T3) 5 THYROID PANEL (T4/TSH/FREE T3) 3 THYROID PANEL (T4/TSH/FREE T3) 3 Free PSA 03/26/2024 PSA, SCREENING 09/05/2024 XR wrist LT min 3V 08/03/2024 CMP (COMP MET BARROW) w/eGFR CKD-EPI 2024 CBC WITH DIFF 09/05/2024 Next Appt Details Provider Name:Jose Alfaro, 10:45:00 AM, [address] [place], [address], Provider Name:Jay Doty, 04/23/2025 09:00:00 AM, [address] [place], [address], Insurance Providers Payer Name Payer Address Payer Phone Subscriber Number Group Number Insured Name Patient Relationship to Insured Coverage Start Date Coverage End Date [employer] [address] [address] [place] [address] [id number] Gladys Smyth Self - patient is the insured 3 Medications Administered Medication Instructions Date of Administration Dosage Notes Dexamethasone, 4mg/mL 11/17/2022 8 mg Dexamethasone, 4mg/mL 11/17/2022 0 Ketorolac Tromethamine 08/03/2024 30 mg Triamcinolone 40 mg/ml 08/03/2024 80 mg Medical (General) History Medical History History ICD Code Hemorrhoids K64.9 Hypothyroidism E03.9 Shoulder impingement syndrome M75.40 Over weight E66.3 Shoulder impingement syndrome M75.40 Benign prostatic hyperplasia N40.0 COPD (chronic obstructive pulmonary dise ase) J44.9 Dyshidrotic eczema L30.1 OM (onychomycosis) B35.1 Edema of lower extremity R60.0 Ureteric stone N20.1 Prostate cancer C61 Nephrolithiasis N20.0 Hydronephrosis N13.30 Chronic kidney disease, unspecified N18. 9 Acute nontraumatic kidney injury N17.9 Obstructive uropathy N13.9 Pyelonephritis N12 Diverticulitis K57.92 Colon polyp, hyperplastic K63.5 Coronary artery disease I25.10 Carpal tunnel syndrome G56.00 Disorder of prostate, unspecified N42.9 Hypertension I10 Cholesteatoma H71.90 Hyperlipidemia E78.5 Left ventricular hypertrophy I51.7 DM2 (diabetes mellitus, type 2) E11.9 Multiple pulmonary nodules R91.[address] elevation myocardial infar ction (STEMI) I25.2 History of tobacco abuse Z87.891 Surgical History Surgery Date(Month/Year) Colonoscopy- Dr Alvarado 10/18/23 drained appendix 2023 carpal tunnel release Hernia Repair- mesh Heart stent Prostate Scraped Kidney stone blast, removal- multiple Hospitalization History Reason Date(Month/Year) Appendicitis 06/2023 Kidney Failure 08/19
--- OUTSIDE RECORDS SUMMARY | 2024-11-27 08:08 | XMS_ITS | Encounter Summary ---
Author Organization [facility] Address [address] [place] [address] Care Team Providers Care Concrete Hopper Operator Name Role Phone Jose Danielson MD Primary Care Provider [phone] Reason for Visit * Reason Comments Med Refill Encounter Details Date Type Department Care Team (Late st Contact Info) Description 03/02/2023 Refill [facility] Cardiology [address] [place] [phone] Riya Gage, PHOTOLITHOGRAPHIC STRIPPER [address] [place] [address] Coronary artery disease involving [place] coronary artery of [place] heart without angina pectoris Social History Tobacco Use Types Packs/Day Years Used Date Smoking Tobacco: Never Smokeless Tobacco: Never Alcohol Use Standard Drinks/Week Comments Yes 0 (1 standard drink = 0.6 oz pur e alcohol) socially Sex and Gender Information Value Date Recorded Sex Assigned at Not on file Gender Identity Not on file Sexual Orientation Not on file documented as of this encounter Plan of Treatment Not on file documented as of this encounter Visit Diagnoses Diagnosis Coronary artery disease involving [place] coronary artery of [place] heart without angina pectoris documented in this encounter Care Teams Concrete Hopper Operator Relationship Specialty Start Date End Date Jose Danielson MD [address] [place] [address] PCP - General 10/14/22 documented as of this encounter
--- OUTSIDE RECORDS SUMMARY | 2024-11-27 08:08 | XMS_ITS | Clinical Summary ---
Author Organization [facility] Address [address] [place] [address] Phone Care Team Providers Care [facility] Name Role Phone Unavailable Primary Care Provider Unavailabl e Social History Tobacco Use Types Packs/Day Years Used Date Smoking Tobacco: Never Assessed Sex and Gender Information Value Date Recorded Sex Assigned at Not on file Legal Sex Male 7:44 AM EST Gender Identity Not on file Sexual Orientation Not on file Plan of Treatment Health Maintenance Due Date Last Done Comments Lipid Panel 1940 Yearly Adult Physical 1940 DTaP/Tdap/Td Vaccines (1 - Tdap) 1964 Pneumococcal Vaccine (1 of 1 - PCV) 1992 Zoster Vaccines (1 of 2) 1992 RSV High Risk: (Elderly (60+ ) or Population) (1 - 1-dose 75+ series) 2017 COVID-19 Vaccine ( - 2023-2 5 season) 2024 Influenza Vaccine (Season Ended) 2025 HIB Vaccines Aged Out No longer eligi ble based on patient's age to complete this topic HPV Vaccines Aged Out No longer eligi ble based on patient's age to complete this topic Hepatitis A Vaccines Aged Out No long er eligible based on patient's age to complete this topic Hepatitis B Vaccines Aged Out No long er eligible based on patient's age to complete this topic IPV Vaccines Aged Out No longer eligi ble based on patient's age to complete this topic Meningococcal Vaccine Aged Out No christiano rod eligible based on patient's age to complete this topic Rotavirus Vaccines Aged Out No longer eligible based on patient's age to complete this topic
--- OUTSIDE RECORDS SUMMARY | 2024-11-27 08:08 | XMS_ITS | Encounter Summary ---
Author Organization [facility] Address [address] [place] [address] Care Team Providers Care Heel Cutter Name Role Phone Jose Danielson MD Primary Care Provider [phone] Encounter Details Date Type Department Care Team (Late st Contact Info) Description 09/27/2023 Clinisync Result Encounter [facility] External Department Unsolicited Jennifer Alvarado DO Social History Tobacco Use Types Packs/Day Years Used Date Smoking Tobacco: Unknown Alcohol Use Standard Drinks/Week Comments Defer 0 (1 standard drink = 0.6 oz pur e alcohol) Sex and Gender Information Value Date Recorded Sex Assigned at Not on file Legal Sex Male 7:26 PM EDT Gender Identity Not on file Sexual Orientation Not on file documented as of this encounter Plan of Treatment Not on file documented as of this encounter Procedures Procedure Name Priority Date/Time Associated Diagnosis Comments CT ABDOMEN PELVIS W CON 09/27/2023 4:05 PM EDT documented in this encounter Results * CT ABDOMEN PELVIS W CON (09/27/2023 4:05 PM EDT) Anatomical Region Laterality Modality Other 09/27/2023 4:05 PM EDT Narrative 09/27/2023 4:07 PM EDT The [address] [address] [address] Scan Report Signed Patient: GLADYS SMYTH MR#: [id number] : 1940 Acct:[id number] Age/Sex: 83 / M ADM Date: 09/27/23 Loc: CT Attending Dr: Jennifer Alvarado D.O. Ordering Physician: Jennifer Alvarado D.O. Date of Service: 09/27/23 Procedure(s): CT abdomen pelvis w con Accession Number(s): [id number] cc: Jose Danielson M.D. [place] [id number] Patient Name: GLADYS SMYTH MRN: [id number] date: 1940 Sex: M Assigned Patient Location: CT Current Patient Location: CT Accession/Order Number: [id number] Exam Date: 09/27/2023 09:05 Report Date: 09/27/2023 16:05 At the request of: JENNFIER ALVARADO Procedure: CT abdomen pelvis w con EXAMINATION: CT abdomen pelvis w con HISTORY: history of appendicitis Z87.19 COMPARISON: CT abdomen pelvis 08/29/2023 TECHNIQUE: Axial, Coronal, and Sagittal images were obtained without and/or with IV contrast as indicated by examination type. Dose reduction techniques were achieved by using automated exposure control and/or adjustment of mA and/or kV according to patient size and/or use of iterative reconstruction technique. FINDINGS: LUNG BASES: No visible pulmonary or pleural disease. LIVER: No enlargement, atrophy, suspicious density, or significant focal lesion. BILIARY: No dilatation or calcification. PANCREAS: No lesion, fluid collection, or abnormal duct dilatation. SPLEEN: No enlargement or focal lesion. ADRENALS: No mass or enlargement. KIDNEYS: Benign-appearing right renal cysts. Marked left renal atrophy. No mass, obstruction, or calcification. BOWEL/MESENTERY: No dilated, inflamed appendix 17 mm in diameter. No free air or free fluid. No visible mass, obstruction, or wall thickening of stomach, small bowel, and colon.. AORTA/VASCULAR: No aneurysm or dissection. RETROPERITONEUM: No mass or adenopathy. LYMPH NODES: No adenopathy. URINARY BLADDER: No visible focal wall thickening, lesion, or calculus. PELVIC ORGANS: Slightly prominent, heterogeneous prostate. ABDOMINAL WALL: No mass or hernia. BONES: No bony lesion or fracture. OTHER: Negative. CT/CT abdomen pelvis w con IMPRESSION: 1. Enlarged and inflamed appendix, but less than seen one month ago. Given the persistence enlargement and soft tissue thickening of the appendix, tumor cannot be excluded. Electronically authenticated by: GILBERT RUIZ Date: 09/27/2023 16:05 Dictated By: Gilbert Ruiz M.D. Signed By: 09/27/23 1607 DD/ 1605 TD/TT: Nibbler Operator: Procedure Note Radiology, Radiologist, - 09/27/[address] [address] [address] Scan Report Signed Patient: GLADYS SMYTH MMR#: [id number] : 1940cct:[id number] Age/Sex: 83 / MADM Date: 09/27/23 Loc: CT Attending Dr: Jennifer Alvarado D.O. Ordering Physician: Jennifer Alvarado D.O. Date of Service: 09/27/23 Procedure(s): CT abdomen pelvis w con Accession Number(s): [id number] cc: Jose Danielson M.D. The [address] [address] Patient Name: GLADYS SMYTH MRN: [id number] date: 1940 Sex: M Assigned Patient Location: CT Current Patient Location: CT Accession/Order Number: [id number] Exam Date: 09/27/2023 09:05 Report Date: 09/27/2023 16:05 At the request of: JENNIFER ALVARADO Procedure: CT abdomen pelvis w con EXAMINATION: CT abdomen pelvis w con HISTORY: history of appendicitis Z87.19 COMPARISON: CT abdomen pelvis 08/29/2023 TECHNIQUE: Axial, Coronal, and Sagittal images were obtained withoutand/or with IV contrast as indicated by examination type. Dose reductiontechniques were achieved by using automated exposure control and/or adjustment of mA and/or kV according to patient size and/or use of iterative reconstruction technique. FINDINGS: LUNG BASES: No visible pulmonary or pleural disease. LIVER: No enlargement, atrophy, suspicious density, or significant focal lesion. BILIARY: No dilatation or calcification. PANCREAS: No lesion, fluid collection, or abnormal duct dilatation. SPLEEN: No enlargement or focal lesion. ADRENALS: No mass or enlargement. KIDNEYS: Benign-appearing right renal cysts. Marked left renal atrophy. No mass, obstruction, or calcification. BOWEL/MESENTERY: No dilated, inflamed appendix 17 mm in diameter. No freeair or free fluid. No visible mass, obstruction, or wall thickening ofstomach, small bowel, and colon.. AORTA/VASCULAR: No aneurysm or dissection. RETROPERITONEUM: No mass or adenopathy. LYMPH NODES: No adenopathy. URINARY BLADDER: No visible focal wall thickening, lesion, or calculus. PELVIC ORGANS: Slightly prominent, heterogeneous prostate. ABDOMINAL WALL: No mass or hernia. BONES: No bony lesion or fracture. OTHER: Negative. CT/CT abdomen pelvis w con IMPRESSION: 1. Enlarged and inflamed appendix, but less than seen one month ago. Giventhe persistence enlargement and soft tissue thickening of the appendix, tumor cannot be excluded. Electronically authenticated by: GILBERT RUIZ Date: 09/27/2023 16:05 Dictated By: Gilbert Ruiz M.D. Signed By:09/27/23 1607 DD/ 1605 TD/TT: Nibbler Operator: us Jennifer Alvarado DO [facility] Final Result documented in this encounter Visit Diagnoses Not on filedocumented in this encounter Care Teams Heel Cutter Relationship Specialty Start Date End Date Jose Danielson MD PCP - General Family Medicine 09/12/23 documented as of this encounter
--- OUTSIDE RECORDS SUMMARY | 2024-11-27 08:08 | XMS_ITS | Clinical Summary ---
Author Organization [facility] Address [address] [place] [address] Care Team Providers Care Shirt Finisher Name Role Phone Jose Danielson MD Primary Care Provider [phone] Allergies Active Allergy Reactions Criticality Noted Date Comments Ciprofloxacin Itching,Other 10/14/2022 Penicillins Hives,Rash,Unknown,Other Low 06/14/2014 Medications aspirin 81 MG EC tablet Take 1 tablet by mouth Daily Active atorvastatin (Lipitor) 80 MG tablet Take 1 tablet by mouth Daily Active B Complex capsule 1 (one) time each day at the same time Active cholecalciferol (Vitamin D-3) 125 MCG (5000 UT) capsule 1 capsule 1 (one) time each day at the same time Active glimepiride (Amaryl) 2 MG tablet 1 (one) time each day at the same time 4 Active Accu-Chek Nevaeh Plus test strip as directed In Vitro Active isosorbide mononitrate ER (Imdur) 120 MG 24 hr tablet 1 (one) time each day at the same time Active lisinopril 20 MG tablet 4 Active levothyroxine (Synthroid, Levoxyl) 50 MCG tablet Take 1 tablet by mouth Daily Active liothyronine (Cytomel) 5 MCG tablet TAKE 1 TABLET BY MOUTH ONCE DAILY for 3 Active metoprolol tartrate (Lopressor) 50 MG tablet Take 1 tablet by mouth in the morning and 1 tablet before bedtime. 3 Active nitroglycerin (Nitrostat) 0.[address] 1 tablet as needed by sublingual route for 30 days. 3 Active pioglitazone (Actos) 15 MG tablet TAKE 1 TABLET BY MOUTH ONCE DAILY for 90 3 Active ranolazine (Ranexa) 500 MG 12 hr tablet every 12 (twelve) hours 3 Active Januvia 100 MG tablet Take 1 tablet every day by oral route for 90 days. Active triamcinolone (Kenalog) 0.1 % cream 1 Application Active tiotropium (Spiriva) [address] 1 capsule into inhaler and inhale in the morning. Active albuterol HFA 90 mcg/act inhaler Inhale 2 puffs every 4 (four) hours if needed for wheezing Active glucosamine-ata droitin 500-400 MG tablet Take 1 tablet by mouth in the morning and 1 tablet in the evening and 1 tablet before bedtime. Active magnesium lactate CR (Magtab) 84 MG (7MEQ) ER tablet Take 84 mg by mouth Daily Active Ketoconazole-Hyd rocortisone 2 & 1 % kit Apply topically Acti ve Active Problems Problem Noted Date Diagnosed Date Carpal tunnel syndrome 09/12/2023 Pre-operative cardiovascular examination 023 Overview (09/12/2023): Last Assessment & Plan: RCRI- 2 points Class III Risk 10.1 % 30-day risk of , NC, or cardiac arrest EKG at last visit [...] and prevent any major fluid shifts. Thank You Coronary atherosclerosis 05/28/2013 Overview (09/12/2023): Last Assessment & Plan: Coronary artery disease is stable, angina much improved s/p increased imdur dose and adding ranexa. Continue GDMT Essential hypertension 05/28/2013 Overview (09/12/2023): Last Assessment & Plan: Hypertension is well controlled today 126/60 with increased norvasc and imdur doses Continue norvasc, lisinopril, imdur, Renal function being monitored by nephrology Benign prostatic hyperplasia 05/16/2013 Chest pain 05/16/2013 Overview (09/12/2023): Last Assessment & Plan: Increase imdur to 120 mg and start ranexa as per Dr Huynh's recommendations Hyperlipidemia 05/16/2013 Overview (09/12/2023): Last Assessment & Plan: Continue statin- lipid level well controlled Preinfarction syndrome 05/16/2013 Type 2 diabetes mellitus without complication Immunizations Immunization Administration Dates Next Due Influenza, High Dose Seasonal, Preservative Free 04/05/2017 Influenza, Unspecified 04/12/2016 Influenza, trivalent, adjuvanted 03/30/2021,03/28 Pneumococcal Conjugate PCV 13 04/05/2017 Pneumococcal Conjugate PCV 20 05/02/2023 Tdap 05/02/2023 Zoster, Recombinant 02/05/2020,12/06/2019 Social History Tobacco Use Types Packs/Day Years Used Date Smoking Tobacco: Unknown Alcohol Use Standard Drinks/Week Comments Defer 0 (1 standard drink = 0.6 oz pur e alcohol) Sex and Gender Information Value Date Recorded Sex Assigned at Not on file Legal Sex Male 7:26 PM EDT Gender Identity Not on file Sexual Orientation Not on file Last Filed Vital Signs Vital Sign Reading Time Taken Comments Blood Pressure 138/62 09/12/2023 10:23 AM EDT Pulse 74 09/12/2023 10:23 AM EDT Temperature 36.4 C (97.5 F) 09/12/2023 10:23 AM EDT Respiratory Rate 16 09/12/2023 10:23 AM EDT Oxygen Saturation - - Inhaled Oxygen Concentration - - Weight 111 kg (244 lb 6.4 oz) 09/12/2023 10:23 A M EDT Height 177.8 cm (5' 10 ) 07/20/2018 12:00 PM EST Body Mass Index 35.07 07/20/2018 12:00 PM EST Plan of Treatment Health Maintenance Due Date Last Done Comments Influenza Vaccine (Season Ended) 2025 03/30/2021, 04/18/2020, 04/04/2019, Additional history exists Pneumococcal Vaccine: 65+ Years Completed 3, 04/05/2017 Insurance [employer] MED[employer] Care Teams Shirt Finisher Relationship Specialty Start Date End Date Jose Danielson MD PCP - General Family Medicine 09/12/23
--- OUTSIDE RECORDS SUMMARY | 2024-11-27 08:08 | XMS_ITS | Encounter Summary ---
Author Organization [facility] Address [address] [place] [address] Care Team Providers Care Childhood Teacher Name Role Phone Tray Alfaro MD Primary Care Provider [phone] Encounter Details Date Type Department Care Team (Late st Contact Info) Description 07/29/2023 Clinisync Result Encounter [facility] External Department Unsolicited Tesha Dowell PA [address] [place] [address] Dr [place] [id number] Social History Tobacco Use Types Packs/Day Years [...] Procedure Name Priority Date/Time Associated Diagnosis Comments ECG 12-LEAD 07/29/2023 2:46 PM EST documented in this encounter Results * ECG 12-LEAD (07/29/2023 2:46 PM EST) Anatomical Region Laterality Modality Other 07/29/2023 2:46 PM EST Narrative 2023 5:55 AM EST The [address] [address] Electrocardiograph Report Signed Patient: GLADYS SMYTH MR#: [id number] : 1940 Acct:[id number] Age/Sex: 82 / M ADM Date: 07/29/23 Loc: [place] 230-[address]: Tray Alfaro M.D. Ordering Physician: eTsha Dowell Date of Service: 07/29/23 Procedure(s): ECG 12 lead Accession Number(s): [id number] cc: [facility] Test Date: 2023-07-29 Pat Name: GLADYS SMYTH Department: Room: - Gender: Male Construction Skills Teacher: : 1940 Requested By: TRAY ALFARO Order Number: [id number] Reading MD: TRAY ALFARO Measurements Intervals [place] Rate: 82 P: 6 ND: 170 QRS: 27 QRSD: 88 T: 51 QT: 352 QTc: 391 Interpretive Statements 1100 Sinus rhythm Electronically Signed On 2023 5:55:01 EST by TRAY ALFARO Dictated By: Tray Alfaro M.D. Signed By: 07/31/23554 DD/ 144 TD/TT: Clinical Research Physician: Procedure Note Radiology, Radiologist, - 2023 [place] [address] Electrocardiograph Report Signed Patient: GLADYS SMYTH MMR#: [id number] : 1940cct:[id number] Age/Sex: 82 / MADM Date: 07/29/23 Loc: [place] 230-[address]: Tray Alfaro M.D. Ordering Physician: Tesha Dowell Date of Service: 07/29/23 Procedure(s): ECG 12 lead Accession Number(s): [id number] cc: [facility] Test Date: 2023-07-29 Pat Name: GLADYS SMYTH Department: Room: - Gender: Male Construction Skills Teacher: : 1940 Requested By: TRAY ALFARO Order Number: [id number] Reading MD: TRAY ALFARO Measurements Intervals [place] Rate: 82 P: 6 ND: 170 QRS: 27 QRSD: 88 T: 51 QT: 352 QTc: 391 Interpretive Statements 1100 Sinus rhythm Electronically Signed On 2023 5:55:01 EST by TRAY ALFARO Dictated By: Tray Alfaro M.D. Signed By:07/31/23554 DD/ 1446 TD/TT: Clinical Research Physician: Tesha PEDRAZA [facility] Final Result documented in this encounter Visit Diagnoses Not on filedocumented in this encounter Care Teams Childhood Teacher Relationship Specialty Start Date End Date Tray Alfaro MD PCP - General Family Medicine 09/12/23 documented as of this encounter
--- OUTSIDE RECORDS SUMMARY | 2024-11-27 08:09 | XMS_ITS | Encounter Summary ---
Author Organization [facility] Address [address] [place] [address] Care Team Providers Care Scouring Train Operator Chief Name Role Phone Jose Danielson MD Primary Care Provider [phone] Reason for Visit * Reason Comments Med Refill Encounter Details Date Type Department Care Team (Late st Contact Info) Description 03/18/2022 Refill [facility] [address] [place] [phone] Gato Huynh MD [address] [facility] [address] [facility] [place] [phone] Essential hypertension (Primary Dx) Social History Tobacco Use Types Packs/Day Years Used Date Smoking Tobacco: Never Assessed Sex and Gender Information Value Date Recorded Sex Assigned at Not on file Gender Identity Not on file Sexual Orientation Not on file documented as of this encounter Plan of Treatment Not on file documented as of this encounter Visit Diagnoses Diagnosis Essential hypertension- Primary Unspecified essential hypertension documented in this encounter Care Teams Scouring Train Operator Chief Relationship Specialty Start Date End Date Jose Danielson MD [address] [facility] [address] [address] PCP - General 10/14/22 documented as of this encounter
--- OUTSIDE RECORDS SUMMARY | 2024-11-27 08:09 | XMS_ITS | Clinical Summary ---
Author Organization [facility] Address [address] [place] [address] Care Team Providers Care Actuarial Consultant Name Role Phone Jose Danielson MD Primary Care Provider [phone] Allergies Active Allergy Reactions Criticality Noted Date Comments Ciprofloxacin Itching 10/14/2022 Penicillins Other 06/14/2014 Medications Medication Sig Dispensed Refills Start Date End Date Status aspirin 81 mg EC tablet in the morning. Active tiotropium (Spiriva Respimat) 2.5 mcg/actuation inhaler Spiriva Respimat 2.5 mcg/actuation solution for inhalation Active albuterol 90 mcg/actuation inhaler Ventolin HFA 90 mcg/actuation aerosol inhaler inhale 2 puffs by mouth and INTO THE LUNGS every 4 hours if needed for shortness of breath Active glimepiride (Amaryl) 4 mg tablet Take 2 mg by mouth before breakfast. Active levothyroxine (Synthroid, Levoxyl) 50 mcg tablet levothyroxine 50 mcg tablet take 1 tablet by mouth once daily Active liothyronine (Cytomel) 5 mcg tablet Take 5 mcg by mouth in the morning. 09/25/2022 Active SITagliptin phosphate (Januvia) 100 mg tablet Januvia 100 mg tablet Active pioglitazone (Actos) 15 mg tablet Take 15 mg by mouth in the morning. 12/24/2022 Active magnesium oxide (Mag-Ox) 400 mg tablet 400 mg in the morning. Active cholecalciferol (Vitamin D-3) 125 MCG (5000 UT) capsule 1 capsule. Active isosorbide mononitrate ER (Imdur) 60 mg 24 hr tabletIndications:Ree st pain, unspecified type,Coronary artery disease involving [place] coronary artery of [place] heart without angina pectoris TAKE 2 TABLETS BY MOUTH IN THE MORNING DO NOT CRUSH OR CHEW 180 tablet 3 05/29/2024 Active ranolazine (Ranexa) 500 mg 12 hr tabletIndications:Cor onary artery disease involving [place] coronary artery of [place] heart without angina pectoris,Stable angina pectoris due to arteriosclerosis of coronary artery TAKE 1 TABLET BY MOUTH IN THE MORNING AND AT BEDTIME . DO NOT CRUSH, CHEW, OR SPLIT 180 tablet 3 05/29/2024 Active metoprolol tartrate (Lopressor) 50 mg tabletIndications:Ess ential hypertension TAKE 1 TABLET BY MOUTH TWICE DAILY 180 tablet 3 06/08/2024 Active nitroglycerin (Nitrostat) 0.4 mg SL tabletIndications:Cor onary artery disease involving [place] coronary artery of [place] heart without angina pectoris DISSOLVE 1 TABLET UNDER THE TONGUE EVERY 5 MINUTES NEEDED FOR CHEST PAIN. MAX OF 3 TABLETS IN 15 MINUTES. CALL 911 IF PAIN PERSISTS. 100 tablet 3 06/08/2024 Active atorvastatin (Lipitor) 80 mg tabletIndications:Cor onary artery disease due to lipid rich plaque TAKE 1 TABLET BY MOUTH AT BEDTIME 90 tablet 3 09/03/2024 Active lisinopril 20 mg tabletIndications:Ess ential hypertension TAKE 1 TABLET BY MOUTH DAILY 90 tablet 3 09/03/2024 Active Active Problems Problem Noted Date Diagnosed Date Acute renal failure 05/21/2024 Anticoagulated 05/21/2024 Bilateral ureteral obstruction 05/21/2024 BPH associated with nocturia 05/21/2024 Chronic obstructive pulmonary disease (COPD) Diabetes 05/21/2024 Erectile dysfunction 05/21/2024 H/O: hypothyroidism 05/21/2024 Hematuria 05/21/2024 High prostate specific antigen (PSA) 05/21/2024 Hydronephrosis with ureteral calculus 05/21/2024 Hyperkalemia 05/21/2024 Hyperplastic colon polyp 05/21/2024 Kidney stone 05/21/2024 Left renal atrophy 05/21/2024 Lung nodule 05/21/2024 Metabolic acidosis 05/21/2024 Myocardial infarct 05/21/2024 Occult blood in stools 05/21/2024 Postprandial diarrhea 05/21/2024 Prostate cancer 05/21/2024 Prostatic enlargement 05/21/2024 Rheumatoid arthritis 05/21/2024 Right distal ureteral calculus 05/21/2024 Secondary hyperparathyroidism 05/21/2024 CKD (chronic kidney disease) stage 3, GFR 30-59 ml/min 05/21/2024 Clot retention of urine 05/21/2024 Carpal tunnel syndrome 09/12/2023 Pre-operative cardiovascular examination 023 Assessment & Plan (11/17/2022 3:18 PM EDT): RCRI- 2 points Class III Risk 10.1 [...] fluid shifts. Thank You Coronary atherosclerosis 05/28/2013 Assessment & Plan (11/17/2022 3:14 PM EDT): Coronary artery disease is stable, angina much improved s/p increased imdur dose and adding ranexa. Continue GDMT Assessment & Plan (10/14/2022 5:19 PM EDT): Reviewed concerning symptoms and recent labs including [...] pain, angina, shortness of breath or further concerns. Essential hypertension 05/28/2013 Assessment & Plan (11/17/2022 3:15 PM EDT): Hypertension is well controlled today 126/60 with increased norvasc and imdur doses Continue norvasc, lisinopril, imdur, Renal function being monitored by nephrology Benign prostatic hyperplasia 05/16/2013 Chest pain 05/16/2013 Assessment & Plan (10/14/2022 5:20 PM EDT): Increase imdur to 120 mg and start ranexa as per Dr Huynh's recommendations Hyperlipidemia 05/16/2013 Assessment & Plan (11/17/2022 2:06 PM EDT): Continue statin- lipid level well controlled Assessment & Plan (10/14/2022 5:20 PM EDT): Continue statin Preinfarction syndrome 05/16/2013 Type 2 diabetes mellitus without complication Encounters Date Type Department Care Team Description 08/31/2024 Refill [facility] [address] [place] [address] Riya Gage CNP Coronary artery disease due to lipid rich plaque; Essential hypertension from Last 3 Months Family History Medical History Relation Name Comments No Known Problems Father No Known Problems Mother Relation Name Status Comments Father Mother Social History Tobacco Use Types Packs/Day Years Used Date Smoking Tobacco: Never Smokeless Tobacco: Never Tobacco Cessation:Counseling Given: Not Answered Alcohol Use Standard Drinks/Week Comments Yes 0 (1 standard drink = 0.6 oz pur e alcohol) socially [place] Safety & Environment Answer Date Rec orded Fear of Current or Ex-Partner Not on file Emotionally Abused Not on file 08/18/2023 Physically Abused Not on file 08/18/2023 Sexually Abused Not on file 08/18/2023 Physically or Sexually Abused Not on file Sex and Gender Information Value Date Recorded Sex Assigned at Not on file Gender Identity Not on file Sexual Orientation Not on file Last Filed Vital Signs Vital Sign Reading Time Taken Comments Blood Pressure 136/64 05/21/2024 2:31 PM EST Pulse 91 05/21/2024 2:31 PM EST Temperature - - Respiratory Rate - - Oxygen Saturation 94% 05/21/2024 2:31 PM EST Inhaled Oxygen Concentration - - Weight 125 kg (275 lb) 05/21/2024 2:31 PM EST Height 175.3 cm (5' 9 ) 05/21/2024 2:31 PM EST Body Mass Index 40.61 05/21/2024 2:31 PM EST Plan of Treatment Health Maintenance Due Date Last Done Comments Diabetes: Hemoglobin A1C 1940 Medicare Annual Wellness (AWV) 1940 Diabetes: Retinopathy Screening 1952 Depression Screening 1954 Diabetes: Urine Protein Screening 1961 Fall Risk Screening 2007 COVID-19 Vaccine ( season) 2024 03/06/2024, 03/24/2023, 03/29/2022, Additional history exists Adult Tetanus 05/02/2033 05/02/2023 Zoster Vaccines Completed 02/05/2020, 12/06/2019 Pneumococcal Vaccine: 65+ Years Completed 05/02/2023, 04/05/2017 Influenza Vaccine Completed 03/06/2024, , 04/18/2020, Additional history exists HIB Vaccines Aged Out No longer eligi ble based on patient's age to complete this topic HPV Vaccines Aged Out No longer eligi ble based on patient's age to complete this topic IPV Vaccines Aged Out No longer eligi ble based on patient's age to complete this topic Meningococcal B Vaccine Aged Out No l onger eligible based on patient's age to complete this topic Meningococcal Vaccine Aged Out No christiano rod eligible based on patient's age to complete this topic Rotavirus Vaccines Aged Out No longer eligible based on patient's age to complete this topic Care Teams Actuarial Consultant Relationship Specialty Start Date End Date Jose Danielson MD [address] [facility] [address] [address] PCP - General 10/14/22
--- OUTSIDE RECORDS SUMMARY | 2024-11-27 08:09 | XMS_ITS | Referral Summary ---
Author Organization [facility] Address [address] [place] [address] Care Team Providers Care In Flight Refueling Operator Name Role Phone Jose Danielson MD Primary Care Provider [phone] Encounters Date Type Department Care Team Description 08/31/2024 Refill [facility] [address] [place] [address] Riya Gage CNP Coronary artery disease due to lipid rich plaque; Essential hypertension from Last 3 Months Allergies Active Allergy Reactions Criticality Noted Date [...] st pain, unspecified type,Coronary artery disease involving [place] coronary artery of [place] heart without angina pectoris TAKE 2 TABLETS BY MOUTH IN THE MORNING DO NOT CRUSH OR CHEW 180 tablet 3 05/29/2024 Active ranolazine (Ranexa) 500 mg 12 hr tabletIndications:Cor onary artery disease involving [place] coronary artery of [place] heart without angina pectoris,Stable angina pectoris due [...] mg SL tabletIndications:Cor onary artery disease involving [place] coronary artery of [place] heart without angina pectoris DISSOLVE 1 TABLET [...] Risk 10.1 % 30-day risk of , [place], or cardiac arrest EKG at last visit [...] 05/16/2013 Type 2 diabetes mellitus without complication Social History Tobacco Use Types Packs/Day Years [...] 05/21/2024 2:31 PM EST Plan of Treatment Not on file Care Teams In Flight Refueling Operator Relationship Specialty Start Date End Date Jose Danielson MD [address] [facility] [place], [place] [id number] PCP - General 10/14/22
--- OUTSIDE RECORDS SUMMARY | 2024-11-27 08:24 | XMS_ITS | CCD ---
Author Organization [facility] Inform ion Partnership [facility] Care Team Providers Care Director Dental Services Name Role Phone Jose Alfaro Primary Care Physician [phone] Alicia León Unavailable MD Jose Alfaro Primary Care Provider MD Hiral Interiano Admit Provider MD Hiral Interiano Attending Provider [phone] ALISHA Mckinleyher Other Provider Unavailable DO Lizzy Lin Other Provider MD Niharika Elias Other Provider MD Joel Larkin Other Provider MD Isidro Dow Other Provider MD Peter Manuel Other Provider ILA Borges Other Provider MD Peyton Barragan Other Provider MD Myesha Solo Other Provider MD Skinny Kiser Other Provider Belkis [facility] Jen Desir Other Provider [phone] MD Aaliyah Mitchell Other Provider MD Alicia León Other Provider MD Milton Braun Other Provider MD Ni Olivares Other Provider MD Yogesh Omalley Other Provider MD Kiran Eldridge Jr Other Provider [phone] MD Fátima Ivey Other Provider MD [...] Unavailable HOY ., DR FELIZ Admcrescencio Unavailable SIRA GAYLE Consulting Unavailable ISRA GAYLE Attending Unavailable HOY ., DR FELIZ Primary Care Unavailable IRWINISAR VÁZQUEZ Admitting Unavailable HOY ., DR FELIZ Attending Unavailable HOY ., DR FELIZ Primary Care Unavailable HOY ., DR FELIZ Consulting Unavailable HOY ., DR FELIZ Admitting Unavailable NORTH [place]NAL, DR TYLER Coello Consulting Unavailable BERNA, IRIS [...] Unavailable MD Jose Alfaro Primary Care Provider [phone] MD Ni Olivares Attending Provider [phone] MD Jose Alfaro Primary Care Provider [phone] NON STAFF Attending Provider Unavailable JENNIFER DRISCOLL Attending Unavailable JENNIFER DRISCOLL Attending Unavailable Ridge Olivaresory P Admitting Unavailable Hoy, Jose M Primary Care Unavailable Ni Olivares Attending Unavailable Hoy, Jose M Primary Care Unavailable Ni Olivares P Attending Unavailable Ni Olivares P Admitting Unavailable Hoy, Jose M Primary Care Unavailable Ni Olivares P Attending Unavailable Ni Olivares P Admitting Unavailable NON STAFF Attending Unavailable NON STAFF Admitting Unavailable Hoy, Jose M Primary Care Unavailable JENNIFER LEYVA Attending Unavailable ISRA GAYLE Attending Unavailable ISRA GAYLE Attending Unavailable Ni OLIVARES Attending Unavailable Ni OLIVARES P Attending Unavailable Allergies Allergy Classification Reported Allergen(s) Allergy Type Date of Onset Reaction(s) Facility (15 sources) Ciprofloxacin; Translations: [ciprofloxacin] Drug Allergy 08-13-19 Eruption of skin (disorder) [facility] (14 sources) Penicillin; Translations: [penicillin] Drug Allergy Eruption of skin (disorder) [facility] Other (6 sources) Ciprofloxacin Drug Allergy Unknown [facility] Other (9 sources) Penicillins; Translations: [Penicillins] Allergy to substance 06-14-20 [facility] (1 source) Ciprofloxacin Drug Allergy 03-10-20 [facility] (3 sources) levothyroxine; Translations: [levothyroxine] Drug Allergy Swelling of oral cavity structure (finding) [facility] (4 sources) liothyronine; Translations: [liothyronine] Drug Allergy Swelling of oral cavity structure (finding) [facility] (1 source) Ciprofloxacin Drug Allergy 06-14-20 [facility] (1 source) No Known Medication Allergies; Translations: [No Known Medication Allergies] Propensity to adverse reactions (disorder) [facility] Repository Medications Current Medications Medication Drug Class(es) Dates Sig (Normalized) Sig (Original) acetaminophen 325 mg / HYDROcodone bitartrate 5 mg oral tablet (1 source) Opioid Agonist Start: 10-07-2022 End: 10-09-2022 acetaminophen-hyd rocodone 325 mg-5 mg oral tablet 1 tab(s), Oral, q4hr Pain for 2 day(s), 7 tab(s), Refill(s) 0, [id number], 175, cm, 09/15/22 5:20:00 EDT, Height/Length Dosing, 114, kg, 09/15/22 5:20:00 EDT, Weight Dosing Start Date: 10/07/22 Stop Date: 10/09/22 Status: Ordered [id number] 200 actuat albuterol 0.09 mg/actuat metered dose [...] Status: Ordered take 1 capsule by mo uth every twenty-four hours Vitamin D3 125 MCG [...] # 2 cap(s), Refills(s) 0, Pharmacy: [facility] #[id number], 177, cm, 11/18/22 13:54:00 EDT, Height/Length Dosing, [...] Oral, Daily Start Date: 04/10/19 Status: Ordered Sefe-Vutzh-Rhm-D3-Hyal-Wiley B or (1 source) Start: 12-20-2023 take 1 tablet by mouth twice daily Wbfn-Cqhfs-Xvx-D3-Hyal-Wiley Bor Active 1 TAB PO Twice daily December 20, 2023 12:00am glucosamine sulfate 500 mg oral capsule (7 sources) Start: 04-10-2019 take 1 capsule by mouth twice daily glucosamine 500 mg Cap 500 mg = 1 cap(s), Oral, BID, Arthritis Start Date: 04/10/19 Status: Ordered Start: 04-10-2019 take 1 capsule by mo [facility] once daily glucosamine 500 mg Cap 500 [...] Start: 09-14-2022 take 1 tablet by delmer once daily in the morning isosorbide mononitrate 60 mg ER Tab 60 mg = 1 tab(s), Oral, qAM, Refills(s) 0, High blood pressure Start Date: 09/14/22 Status: Ordered take 1 tablet by delmer every twenty-four hours Isosorbide Mononitrate ER 120 [...] Status: Ordered take 1 tablet by delmer once daily in the morning Levothyroxine Sodium [...] Start: 02-23-2021 take 2 tablets by mo [facility] once daily lisinopril 10 mg Tab 20 [...] 2019 1:11pm take 1 tablet by delmer every twenty-four [...] activity, # 30 tab(s), Refills(s) 2, Pharmacy: [facility] [id number], 174, cm, 08/18/20 12:16:00 [...] 1 puff(s) by inhalation once daily Tiotropium Voss (Spiriva Respimat) 2.5 mcg/actuation mist Active 2 [...] Coronary arteriosclerosis; Translations: [Atherosclerotic heart disease of [place] coronary artery without angina pectoris] Onset: 3 [...] 08-25-2022 Episodic Other aftercare (1 source) terminal makeup operator (current) use of aspirin; Translations: [RESOLUTION EXPERT CURRENT USE OF ASPIRIN] Onset: 08-13-2022 Episodic Other aftercare (1 source) Other ferry terminal agent (current) drug therapy; Translations: [OTH RESOLUTION EXPERT CURRENT DRUG THERAPY] Onset: 08-13-2022 Episodic Other [...] Test Name Value Interpretation Reference Range Facility Reminderson 11-22-2024 Reminders Reminders From: Shira Mauricio To: EU - Recalls Cook; Sent: 06/12/2024 11:57:51 EST Show up: 11/10/2024 [...] ) Other: PROVIDER RELATED REMINDER:_ ( ) Director Medical Science ( ) Call Pharmacy ( ) Call Lab ( ) Other: Special Instructions:_ Comments:_ LM on vm reminding pt to get VALENTINA done, advise pt to call back Normal [facility] Ambulatory Visit Summaryon 1 08-13-2023 Ambulatory Visit Summary Ambulatory Visit Summary VICTORINO SMYTH :1940 Visit Date:06/12/2024 Ambulatory Visit Instructions Your Diagnosis Prostate cancer Kidney stone BPH with urinary obstruction Tests Performed US Renal -- Results Pending -- Please visit your patient portal for your results or contact your primary care physician. Your Care Team Attending Physician - CARLOS OLIVEROS, Ni Garcia Primary Care Physician - Erum OLIVEROS, Jose This Is Your Medications List Contact prescribing [...] Ni OLIVARES MD Where: [facility] [address] [place] [address]- You Need to Schedule the Following Appointments Follow Up with Ni OLIVARES MD, URL When: Where: [address] [address]- Medications What How Much When Instructions [...] if q (more content not included)... Normal [facility] Urology Office/Clinic Noteon 06-12-2024 Urology Office/Clinic [...] 16% TRUS/bx 07/05/[address] [place]. Path Dom [...] lemon juice to water daily [4]. VALENTINA 12/16/24 - Multiple R renal stones up to [...] ordered PSA Follow-up With When Contact Information CARLOS OLIVEROS, Ni Garcia, URL [address] [place] [id number]- Additional Instructions: 6 mos with PSA and [...] with voice recognition artificial intelligence software, specifically ActBlue, Ordr.in and or Brain Sentry. Substitutions may have occurred due to the [...] of u (more content not included)... Normal [facility] Comment on above: Result Comment: Elec tronically Signed By: Ni OLIVARES MD\.br\Date and Time Signed: 06/12/24 13:29 EST\.br\Electronically Co-Signed By: Shira Mauricio P\.br\Date and Time Co-Signed: 06/12/24 11:55 EST Office Visiton 05-21-2024 Follow-up visit [id number] Ruben Smyth 1940 M Date Provider Department Center 05/21/2024 JENNIFER SMITH CARD [facility] Family History Problem Relation Age of Onset No Known Problems Mother No Known Problems Father Family Status - Relation Status Age at Mother Father Level of Service:[address]28 [place] OFFICE/OUTPATIENT ESTABLISHED LOW MDM 20 MIN Normal [facility] Erythrocyte distribution wid th Auto (RBC) [Ratio]on 12-14-2023 Erythrocyte distribution width (RBC) [Ratio] 12.9 % 11.0-15.0 [facility] Estimated glomerular filtrat ion rate (GFR) non- Americanon 12-14-2023 GFR/1.73 sq M.predicted among non-blacks MDRD (S/P/Bld) [Vol rate/Area] 35 mL/min/{1.73_m2} >=60 [facility] Hematocrit Auto (Bld) [Volum e fraction]on 12-14-2023 Hematocrit (Bld) [Volume fraction] 41.9 % 42.0-54.0 [facility] Hemoglobin [Mass/volume] in Bloodon 12-14-2023 Hemoglobin (Bld) [Mass/Vol] 14.0 g/dL 14.0-18.0 [facility] Iron binding capacity [Mass/ volume] in Serum or Plasmaon 12-14-2023 Iron binding capacity [Mass/Vol] 279.0 ug/dL 250.0-450. 0 [facility] Iron saturation [Mass Fracti on] in Serum or Plasmaon 12-14-2023 Iron saturation [Mass fraction] 36.2 % [facility] Laboratory - Chemistry and C hemistry - challengeon 12-14-2023 Albumin [Mass/Vol] 3.3 g/dL 3.4-5.0 [facility] Calcium [Mass/Vol] 8.5 mg/dL 8.5-10.1 [facility] Chloride [Moles/Vol] 106 mmol/L 98-107 [facility] CO2 [Moles/Vol] 24.0 mmol/L 21.0-32.0 [facility] Creatinine [Mass/Vol] 1.84 mg/dL 0.70-1.30 [facility] Ferritin [Mass/Vol] 111.0 ng/mL 26.0-388.0 [facility] GFR/1.73 sq M.predicted MDRD (S/P/Bld) [Vol rate/Area] 43 mL/min/{1.73_m2} >=60 [facility] Glucose [Mass/Vol] 155 mg/dL 74-106 [facility] Iron [Mass/Vol] 101.0 ug/dL 65.0-175.0 [facility] Magnesium [Mass/Vol] 1.7 mg/dL 1.8-2.4 [facility] Potassium [Moles/Vol] 4.6 mmol/L 3.5-5.1 [facility] Sodium [Moles/Vol] 140 mmol/L 136-145 [facility] Urate [Mass/Vol] 6.4 mg/dL 3.5-7.2 [facility] Urea nitrogen [Mass/Vol] 21.0 mg/dL 7.0-18.0 [facility] Urea nitrogen/Creatinine [Mass ratio] 11.4 mg/mg [facility] Bilirubin Ql (U) Negative NEGATIVE [facility] Glucose (U) [Mass/Vol] Negative NEGATIVE [facility] Ketones Ql (U) Negative NEGATIVE [facility] pH (U) 5.5 [pH] 5.0-9.0 [facility] Specific gravity (U) [Rel density] 1.015 1.005-1.02 5 [facility] Urobilinogen Qn (U) 0.2 {Wil'U}/dL 0.2-1.0 [facility] Laboratory - Specimen inform ationon 12-14-2023 Appearance (U) CLEAR CLEAR [facility] Color (U) YELLOW YELLOW [facility] Laboratory - Urinalysison Leukocyte esterase Test strip Ql (U) Negative NEGATIVE [facility] Mucus Ql (Urine sed) NONE SEEN NONE SEEN [facility] Nitrite Ql (U) Negative NEGATIVE [facility] Protein (U) [Mass/Vol] 10.9 mg/dL <=11.9 [facility] Protein Ql (U) Negative NEG/TRACE [facility] Leukocytes [#/volume] correc ike for nucleated erythrocytes in Blood by Automated counon 12-14-2023 WBC corrected for nucl RBC Auto (Bld) [#/Vol] 6.2 10 3/uL 4.0-11.0 [facility] MCH Auto (RBC) [Entitic mass ]on 12-14-2023 MCH (RBC) [Entitic mass] 33.7 pg 25.9-34.0 [facility] MCHC Auto (RBC) [Mass/Vol]on 12-14-2023 MCHC (RBC) [Mass/Vol] 33.4 g/dL 29.9-35.2 [facility] MCV Auto (RBC) [Entitic vol] on 12-14-2023 MCV (RBC) [Entitic vol] 101.0 fL 80.0-94.0 [facility] No Panel Informationon 12-13 25-Hydroxy Vitamin D Total 66.1 ng/mL [facility] Comment on above: <20 ng/mL Vit D defi cient20-<30 ng/mL Vit D [id number] ng/mL Vit D sufficient>100 ng/mL Potential Toxicity Parathyroid Hormone (Intact) 50 pg/mL 15-65 [facility] Comment on above: Performed at: - [facility] [address] [id number] Director: Lee Bob PhD, Phone: [phone] Phosphorus Level 3.5 mg/dL 2.6-4.7 [facility] Urine Bacteria NONE SEEN #/HPF NONE SEEN [facility] Urine Occult Blood Negative NEGATIVE [facility] Urine Other Casts NONE SEEN #/LPF NONE SEEN [facility] Urine Other Crystals None Seen #/HPF None Seen [facility] Urine Random Creatinine 71.05 mg/dL 20.00-300. 00 [facility] Urine RBC NONE SEEN #/HPF 0-2 [facility] Urine Squamous Epithelial Cells RARE #/LPF NONE/RARE [facility] Urine WBC NONE SEEN #/HPF NONE SEEN [facility] Platelet mean volume Auto (B ld) [Entitic vol]on 12-14-2023 Platelet mean volume (Bld) [Entitic vol] 11.2 fL 9.5-13.5 [facility] Platelets Auto (Bld) [#/Vol] on 12-14-2023 Platelets (Bld) [#/Vol] 168 10 3/uL 150-450 [facility] RBC Auto (Bld) [#/Vol]on RBC (Bld) [#/Vol] 4.15 10 6/uL 4.70-6.10 [facility] Serum or plasma anion gap de terminationon 12-14-2023 Anion gap [Moles/Vol] 14.6 mmol/L [facility] Urine protein/creatinine rat ioon 12-14-2023 Protein/Creatinine (U) [Ratio] 0.15 [facility] Office Visiton 11-01-2023 Follow-up visit [id number] Ruben Smyth 1940 M Date Provider Department Center 11/01/2023 ISRA HICKS Family History Problem Relation Age of Onset No Known Problems Mother No Known Problems Father Family Status - Relation Status Age at Mother Father Level of Service:58294 [place] OFFICE/OUTPATIENT ESTABLISHED MOD MDM 30 MIN Reason for Visit and Comments: Coronary Artery Disease [187] Hypertension [397803] Normal [facility] Daniel 10-18-2023 L Specimen: [id number] Received: 10/19/23 Status: HIMANSHU Williamson Num: [id number] Spec Type: Surgical Subm Dr: NON STAFF Tissues: A Colon Biopsy (DESC POLYP AT 50 CM) Procedures: HE/2, Gross/Micro L4 Age/ Patient Sex Location Account Attending Physician Victorino Smyth 83/M LABELL [id number] NON STAFF SPEC NUM: [id number] RECD: 10/19/23 STATUS: HIMANSHU [place] NUM: [id number] HYUN: 04/23/24-[address]: NON STAFF ENTERED: 10/19/23 [facility] DR: Charito,Lab SPEC TYPE: Surgical DEPT: MIO JOSEPH REC BY: [id number] ORDERED: HE/2, Gross/Micro L4 ORDERED: HE/2, Gross/Micro [...] colon polyp at 50 cm CPT Codes 57752 Specimen: [id number] Received: 10/19/23 Status: HIMANSHU Williamson Num: [id number] Spec Type: Surgical Subm Dr: NON STAFF Tissues: A Colon Biopsy (DESC POLYP AT 50 CM) Procedures: HE/2, Gross/Micro L4 Patient: Victorino Smyth [id number] (Continued) Signed (signature on file) Ana Villegas MD 10/20/23 4425 Normal [facility] 36on 09-06-2023 36 Blood pressure is lo oking better. Continue to hold amlodipine. Thanks! Normal [facility] 37on 08-23-2023 37 *Stop Amlodipine. *We will call you in 1 week to check in on your blood pressure readings. Normal [facility] Office Visiton 08-23-2023 Follow-up visit [id number] Ruben Smyth 1940 [place] Date Provider Department Center 08/23/2023 ISRA HICKS CARD [facility] Family History Problem Relation Age of Onset No Known Problems Mother No Known Problems Father Family Status - Relation Status Age at Mother Father Level of Service:68048 [place] OFFICE/OUTPATIENT ESTABLISHED MOD MDM 30 MIN Normal [facility] Calcium [Mass/volume] in Ser um or PlasmaOrdered By: Ni Olivares on 07-02-2023 Calcium [Mass/Vol] 8.8 mg/dL Normal 8.6-10.3 [facility] Comment on above: Performed By: #### U THUY, CA, CREAT, BUN, PTH, LYTES #### [facility] [address] Carbon dioxide, total [Moles /volume] in Serum or PlasmaOrdered By: Ni Olivares on 07-02-2023 CO2 [Moles/Vol] 24.0 mmol/L Normal 21.0-31.0 [facility] Comment on above: Performed By: #### U THUY, CA, CREAT, BUN, PTH, LYTES #### [address] Chloride [Moles/volume] in S paty or PlasmaOrdered By: Ni Olivares on 07-02-2023 Chloride [Moles/Vol] 107 mmol/L Normal 98-107 [facility] Comment on above: Performed By: #### U THUY, CA, CREAT, BUN, PTH, LYTES #### [address] Creatinineon 07-02-2023 GFR/1.73 sq M.predicted MDRD (S/P/Bld) [Vol rate/Area] 32.151 mL/min/{1.73_m2} Normal [facility] Comment on above: Performed By: #### U THUY, CA, CREAT, BUN, PTH, LYTES #### [address] Creatinine [Mass/volume] in Serum or PlasmaOrdered By: Ni Olivares on 07-02-2023 Creatinine [Mass/Vol] 2.05 mg/dL High 0.70-1.30 [facility] Comment on above: Performed By: #### U THUY, CA, CREAT, BUN, PTH, LYTES #### [address] No Panel InformationOrdered By: Ni Olivares on 07-02-2023 Estimated GFR (CKD-EPI) 32.151 mL/Min [facility] Creatinine Clearance (Chem N/A [facility] Parathyrin.intact [Mass/volu me] in Serum or PlasmaOrdered By: Ni Olivares on 07-02-2023 Parathyrin.intact [Mass/Vol] 55.4 pg/mL [facility] Parathyroid Hormone Intacton 07-02-2023 Parathyroid Hormone Intact 55.4 pg/mL Normal [facility] Comment on above: Result Comment: PERF ORMED BY: [place] [address] PATHOLOGIST [employer]ILERMAK[employer]SEMBL[employer] AND ERECTION DIANDRA LACY M.D. Performed By: #### U THUY, CA, CREAT, BUN, PTH, LYTES #### [address] Potassium [Moles/volume] in Serum or PlasmaOrdered By: Ni Olivares on 07-02-2023 Potassium [Moles/Vol] 5.0 mmol/L Normal 3.5-5.1 [facility] Comment on above: Performed By: #### U THUY, CA, CREAT, BUN, PTH, LYTES #### [address] Serum or plasma anion gap de terminationOrdered By: Ni Olivares on 07-02-2023 Anion gap [Moles/Vol] 12.0 mmol/L Normal 6.0-15.0 [facility] Comment on above: Performed By: #### U THUY, CA, CREAT, BUN, PTH, LYTES #### [address] Sodium [Moles/volume] in Ser um or PlasmaOrdered By: Ni Olivares on 07-02-2023 Sodium [Moles/Vol] 138 mmol/L Normal 136-145 [facility] Comment on above: Performed By: #### U THUY, CA, CREAT, BUN, PTH, LYTES #### [address] Urate [Mass/volume] in Serum or PlasmaOrdered By: Ni Olivares on 07-02-2023 Urate [Mass/Vol] 8.2 mg/dL High 4.4-7.6 [facility] Comment on above: Result Comment: PERF ORMED BY: [place] [address] PATHOLOGIST [employer]RECTION DIANDRA LACY M.D. Performed By: #### U THUY, CA, CREAT, BUN, PTH, LYTES #### [place] [address] [place] Urea nitrogen [Mass/volume] in Serum or PlasmaOrdered By: Ni Olivares on 07-02-2023 Urea nitrogen [Mass/Vol] 31 mg/dL High 7-25 [facility] Comment on above: Performed By: #### U THUY, CA, CREAT, BUN, PTH, LYTES #### [facility] [address] [place] [address] PSA Total (Not a Screen)on 0 06-28-2023 PSA Total (Not a Screen) 4.730 ng/mL High 0.000-4.00 0 [facility] Comment on above: Result Comment: Seri al tumor marker results determined by assays using different manufacturers or methods may not be comparable. [facility] forester silviculture and method: [employer] DXI, CHEMILUMINESCENT IMMUNOASSAY. PERFORMED BY: [place] [address] PATHOLOGIST [employer] AND ERECTION DIANDRA LACY M.D. Performed By: #### P SATOTAL #### [address] Prostate specific Ag [Mass/v olume] in Serum or PlasmaOrdered By: Ni Olivares on 06-28-2023 Prostate specific Ag [Mass/Vol] 4.730 ng/mL 0.000-4.00 0 [facility] Comment on above: Serial tumor marker results determined by assays using different manufacturers or methods may not be comparable.[facility] forester silviculture and method:Cardiovascular SimulationEL DXI, CHEMILUMINESCENT IMMUNOASSAY. US renal BIon 06-16-2023 US renal BI [facility] [place] [address] [place] [address] Ultrasound Report Signed Patient: Victorino Smyth MR#: [id number] : 1940 Acct:[id number] Age/Sex: 82 / M ADM Date: 06/16/23 Loc: Room: Type: [facility] Attending Dr: Ni Olivares MD Ordering Provider: [...] Rehan Fuentes M.D.06/16/2023 4:02 PM Dictation Location: [place] [address] Tech: Sue Chiu Transcribed By: [place] 06/16/23 1602 Dictated By: Rehan Fuentes DO 06/16/23 1559 Signed By: 06/16/23 1602 Normal [facility] PSA, FREE AND TOTAL RATIOon 11-09-2022 % Free PSA 11.3 % Normal [facility] Comment on above: Result Comment: The [...] Performed By: #### P SAFREE #### [facility] [address] [place] [address] Dr. Alicia Patel Prostate specific Ag [Mass/Vol] 4.6 ng/mL Critically high 0.0-4.0 [facility] Comment on above: Result Comment: Dwight [...] Performed By: #### P SAFREE #### [facility] [address] [place] [address] Dr. Alicia Patel PSA, Free 0.52 ng/mL Normal N/A [facility] Comment on above: Result Comment: Dwight JUAREZ methodology. Performed By: #### P SAFREE #### [facility] [address] [place] [address] Dr. Alicia Patel INSULINon 11-08-2022 Insulin 18.5 uIU/mL Normal 2.6-24.9 [facility] Comment on above: Performed By: #### T SH, LIPID, T4, FT3, CMP #### [facility] [address] [place] [address] Dr. Alicia Patel CBC AUTO DIFFon 11-06-2022 BASO # 0.0 103/ul Normal 0.0-0.1 [facility] Comment on above: Performed By: #### C BC #### [facility] [address] [place] [address] Dr. Alicia Patel Basophils/100 WBC (Bld) 0.4 % Normal 0.2-2.0 [facility] Comment on above: Performed By: #### C BC #### [facility] [address] [place] [address] Dr. Alicia Patel EO # 0.2 103/ul Normal 0.0-0.7 [facility] Comment on above: Performed By: #### C BC #### [facility] [address] [place] [address] Dr. Alicia Patel Eosinophils/100 WBC (Bld) 4.6 % Normal 0.9-7.0 [facility] Comment on above: Performed By: #### C BC #### [facility] [address] [place] [address] Dr. Alicia Patel Erythrocyte distribution width (RBC) [Ratio] 13.2 % Normal 11.0-15.0 [facility] Comment on above: Performed By: #### C BC #### [facility] [address] [place] [address] Dr. Alicia Patel Hematocrit (Bld) [Volume fraction] 34.6 % Critically low 42.0-54.0 [facility] Comment on above: Performed By: #### C BC #### [facility] [address] [place] [address] [address] Alicia Patel Hemoglobin (Bld) [Mass/Vol] 11.4 g/dL Critically low 14.0-18.0 [facility] Comment on above: Performed By: #### C BC #### [facility] [address] [place] [address] [address] Alicia Patel IG # 0.03 10e3/ul Normal 0.00-0.03 [facility] Comment on above: Performed By: #### C BC #### [facility] [address] [place] [address] Dr. Alicia Patel IG % 0.6 % Critically high 0.0-0.5 [facility] Comment on above: Performed By: #### C BC #### [facility] [address] [place] [address] Dr. Alicia Patel LYMPH # 0.9 103/ul Critically low 1.2-3.8 [facility] Comment on above: Performed By: #### C BC #### [facility] [address] [place] [address] Dr. Alicia Patel Lymphocytes/100 WBC (Bld) 16.3 % Critically low 20.5-60.0 [facility] Comment on above: Performed By: #### C BC #### [facility] [address] [place] [address] Dr. Alicia Patel MANUAL DIFF REQ NO Normal [facility] Comment on above: Performed By: #### C BC #### [facility] [address] [place] [address] Dr. Alicia Patel MCH (RBC) [Entitic mass] 32.9 pg Normal 25.9-34.0 [facility] Comment on above: Performed By: #### C BC #### [facility] [address] [place] [address] Dr. Alicia Patel MCHC (RBC) [Mass/Vol] 32.9 g/dL Normal 29.9-35.2 [facility] Comment on above: Performed By: #### C BC #### [facility] [address] [address] [address] Alicia Patel MCV (RBC) [Entitic vol] 99.7 fL Critically high 80.0-94.0 [facility] Comment on above: Performed By: #### C BC #### [facility] [address] [address] [address] Alicia Patel MONO # 0.6 103/ul Normal 0.3-0.8 [facility] Comment on above: Performed By: #### C BC #### [facility] [address] [place] [address] Dr. Alicia Patel Monocytes/100 WBC (Bld) 12.0 % Normal 1.7-12.0 [facility] Comment on above: Performed By: #### C BC #### [facility] [address] [place] [address] Dr. Alicia Patel NEUT # 3.5 103/ul Normal 1.4-6.5 [facility] Comment on above: Performed By: #### C BC #### [facility] [address] [place] [address] Dr. Alicia Patel Neutrophils/100 WBC (Bld) 66.1 % Normal 43.0-75.0 [facility] Comment on above: Performed By: #### C BC #### [facility] [address] [place] [address] Dr. Alicia Patel Platelet mean volume (Bld) [Entitic vol] 10.1 fL Normal 9.5-13.5 [facility] Comment on above: Performed By: #### C BC #### [facility] [address] [place] [address] Dr. Alicia Patel PLT 168 103/ul Normal 150-450 [facility] Comment on above: Performed By: #### C BC #### [facility] [address] [place] [address] Dr. Alicia Patel RBC 3.47 106/ul Critically low 4.70-6.10 [facility] Comment on above: Performed By: #### C BC #### [facility] [address] [address] [address] Alicia aPtel WBC 5.2 103/ul Normal 4.0-11.0 [facility] Comment on above: Performed By: #### C BC #### [facility] [address] [place] [address] Dr. Alicia Patel FREE T3on 11-06-2022 FREE T3 2.78 pg/mlL Normal 2.18-3.98 [facility] Comment on above: Performed By: #### U RTPCR #### [facility] [address] [place] [address] Dr. Alicia Patel GLYCOHEMOGLOBIN A1Con 2022 ADA RECOMMENDATION SEE BELOW Normal [facility] Comment on above: Result Comment: ADA RECOMMENDED LIMIT 4.0 - 6.0 ADA THERAPEUTIC TARGET < 7.0 ACTION SUGGESTED > 7.0 Performed By: #### T SH, LIPID, T4, FT3, CMP #### [facility] [address] [place] [address] Dr. Alicia Patel Glucose [Mass/Vol] 120 mg/dL Normal [facility] Comment on above: Performed By: #### T SH, LIPID, T4, FT3, CMP #### [facility] [address] [place] [address] Dr. Alicia Patel HbA1c (Bld) [Mass fraction] 5.8 % Normal 4.5-6.2 [facility] Comment on above: Performed By: #### T SH, LIPID, T4, FT3, CMP #### [facility] [address] [place] [address] Dr. Alicia Patel LIPID PROFILEon 11-06-2022 CHOL-HDL RATIO NORM SEE BELOW Normal [facility] Comment on above: Result Comment: 3.3 - 4.4 LOW RISK 4.4 - 7.1 AVERAGE RISK 7.1 - 11.0 MODERATE RISK >11.0 HIGH RISK Performed By: #### U RTPCR #### [facility] [address] [place] [address] Dr. Alicia Patel Cholesterol [Mass/Vol] 107 mg/dL Normal <=200 [facility] Comment on above: Performed By: #### U RTPCR #### [facility] [address] [address] [address] Alicia Patel Cholesterol in HDL [Mass/Vol] 34 mg/dL Critically low 40-60 [facility] Comment on above: Performed By: #### U RTPCR #### [facility] [address] [address] [address] Alicia Patel Cholesterol in LDL [Mass/Vol] 58.8 mg/dL Normal [facility] Comment on above: Performed By: #### U RTPCR #### [facility] [address] [address] [address] Alicia Patel Cholesterol.total/Chol esterol in HDL [Mass ratio] 3.1 {ratio} Normal [facility] Comment on above: Performed By: #### U RTPCR #### [facility] [address] [place] [address] Dr. Alicia Patel HDL NORMAL > or = 60 mg/dl - LO W CARDIOVASCULAR RISK <40 mg/dl - HIGH CARDIOVASCULAR RISK Normal [facility] Comment on above: Performed By: #### U RTPCR #### [facility] [address] [address] [address] Alicia Patel LDL CALC NORMAL SEE BELOW Normal [facility] Comment on above: Result Comment: <100 mg/dl OPTIMAL 100 - 129 mg/dl NEAR OR ABOVE OPTIMAL 130 - 159 mg/dl BORDERLINE HIGH 160 - 189 mg/dl HIGH >190 mg/dl VERY HIGH Performed By: #### U RTPCR #### [facility] [address] [address] [address] Alicia Patel Triglyceride [Mass/Vol] 71 mg/dL Normal <=150 [facility] Comment on above: Performed By: #### U RTPCR #### [facility] [address] [address] [address] Alicia Patel VLDL CALC 14.2 mg/dL Normal [facility] Comment on above: Performed By: #### U RTPCR #### [facility] [address] [address] [address] Alicia Patel PROF 14(COMP METB)on 023 Albumin [Mass/Vol] 3.4 g/dL Normal 3.4-5.0 [facility] Comment on above: Performed By: #### T SH, LIPID, T4, FT3, CMP #### [facility] [address] [place] [address] Dr. Alicia Patel Albumin/Globulin [Mass ratio] 0.9 {ratio} Normal [facility] Comment on above: Performed By: #### T SH, LIPID, T4, FT3, CMP #### [facility] [address] [place] [address] Dr. Alicia Patel ALP [Catalytic activity/Vol] 75 U/L Normal 46-116 [facility] Comment on above: Performed By: #### T SH, LIPID, T4, FT3, CMP #### [facility] [address] [place] [address] Dr. Alicia Patel ALT [Catalytic activity/Vol] 31 U/L Normal 16-63 [facility] Comment on above: Performed By: #### T SH, LIPID, T4, FT3, CMP #### [facility] [address] [place] [address] Dr. Alicia Patel Anion gap [Moles/Vol] 14.4 mmol/L Normal [facility] Comment on above: Performed By: #### T SH, LIPID, T4, FT3, CMP #### [facility] [address] [place] [address] Dr. Alicia Patel AST [Catalytic activity/Vol] 23 U/L Normal 15-37 [facility] Comment on above: Performed By: #### T SH, LIPID, T4, FT3, CMP #### [facility] [address] [place] [address] Dr. Alicia Patel Bilirubin [Mass/Vol] 0.5 mg/dL Normal 0.2-1.0 [facility] Comment on above: Performed By: #### T SH, LIPID, T4, FT3, CMP #### [facility] [address] [place] [address] Dr. Alicia Patel Calcium [Mass/Vol] 8.8 mg/dL Normal 8.5-10.1 [facility] Comment on above: Performed By: #### T SH, LIPID, T4, FT3, CMP #### [facility] [address] [place] [address] Dr. Alicia Patel Chloride [Moles/Vol] 110 mmol/L Critically high 98-107 [facility] Comment on above: Performed By: #### T SH, LIPID, T4, FT3, CMP #### [facility] [address] [place] [address] Dr. Alicia Patel CO2 [Moles/Vol] 24.2 mmol/L Normal 21.0-32.0 [facility] Comment on above: Performed By: #### T SH, LIPID, T4, FT3, CMP #### [facility] [address] [place] [address] Dr. Alicia Patel Creatinine [Mass/Vol] 2.41 mg/dL Critically high 0.70-1.30 [facility] Comment on above: Performed By: #### T SH, LIPID, T4, FT3, CMP #### [facility] [address] [place] [address] Dr. Alicia Patel EGFR-AF DOMINICAN 32 mL/min/1.73m2 Critically low >=60 [facility] Comment on above: Performed By: #### T SH, LIPID, T4, FT3, CMP #### [facility] [address] [place] [address] Dr. Alicia Patel EGFR-NON AF DOMINICAN 26 mL/min/1.73m2 Critically low >=60 [facility] Comment on above: Performed By: #### T SH, LIPID, T4, FT3, CMP #### [facility] [address] [place] [address] Dr. Alicia Patel Globulin (S) [Mass/Vol] 3.6 g/dL Normal [facility] Comment on above: Performed By: #### T SH, LIPID, T4, FT3, CMP #### [facility] [address] [place] [address] Dr. Alicia Patel Glucose [Mass/Vol] 72 mg/dL Critically low 74-106 [facility] Comment on above: Performed By: #### T SH, LIPID, T4, FT3, CMP #### [facility] [address] [place] [address] Dr. Alicia Patel Potassium [Moles/Vol] 4.6 mmol/L Normal 3.5-5.1 [facility] Comment on above: Performed By: #### T SH, LIPID, T4, FT3, CMP #### [facility] [address] [place] [address] Dr. Alicia Patel Protein [Mass/Vol] 7.0 g/dL Normal 6.4-8.2 [facility] Comment on above: Performed By: #### T SH, LIPID, T4, FT3, CMP #### [facility] [address] [place] [address] Dr. Alicia Patel Sodium [Moles/Vol] 144 mmol/L Normal 136-145 [facility] Comment on above: Performed By: #### T SH, LIPID, T4, FT3, CMP #### [facility] [address] [place] [address] Dr. Alicia Patel Urea nitrogen [Mass/Vol] 32.0 mg/dL Critically high 7.0-18.0 [facility] Comment on above: Performed By: #### T SH, LIPID, T4, FT3, CMP #### [facility] [address] [place] [address] Dr. Alicia Patel Urea nitrogen/Creatinine [Mass ratio] 13.3 mg/mg Normal [facility] Comment on above: Performed By: #### T SH, LIPID, T4, FT3, CMP #### [facility] [address] [place] [address] Dr. Alicia Patel T4on 11-06-2022 T4 [Mass/Vol] 7.90 ug/dL Normal 4.50-12.10 [facility] Comment on above: Performed By: #### T SH, LIPID, T4, FT3, CMP #### [facility] [address] [place] [address] Dr. Alicia Patel TSHon 11-06-2022 TSH 0.263 uIU/mL Critically low 0.358-3.74 0 [facility] Comment on above: Performed By: #### T SH, LIPID, T4, FT3, CMP #### [facility] [address] [address] [address] Alicia Patel URIC ACID SERUMon 11-06-2022 Urate [Mass/Vol] 7.3 mg/dL Critically high 3.5-7.2 [facility] Comment on above: Performed By: #### T SH, LIPID, T4, FT3, CMP #### [facility] [address] [address] [address] Alicia Patel ECHOCARDIO M/2D COMPLETEon 0 10-26-2022 ECHOCARDIO M/2D COMPLETE Patient: VICTORINO SMYTH Exam Date: 10/26/2022 : 1940 Gender:M Ordering : IRIS CORONEL Admission #: [id number] Family : DR JOSE ALFARO . Order #: [id number] CLICK HERE TO VIEW EXAM ECHOCARDIOGRAM REPORT [...] Glasgow M.D. on 10/28/2022 at 13:02 Normal [facility] XR KUB 1 VIEWon 10-22-2022 XR [...] TYLER MONSIVAIS Date: 2022-10-22 09:12 Normal [facility] US KIDNEYSon 10-18-2022 US KIDNEYS EXAMINATION: US [facility] HISTORY: Kidney stone COMPARISON: Ultrasound kidneys [...] TESS FORD Date: 2022-10-18 07:04 Normal [facility] BNPon 10-14-2022 Natriuretic peptide B (Bld) [Mass/Vol] 300.0 pg/mL Normal <=1,800.0 [facility] Comment on above: Performed By: #### T SH, LIPID, T4, FT3, CMP #### [facility] [address] [place] [address] Dr. Alicia Patel CBC AUTO DIFFon 10-14-2022 BASO # 0.0 103/ul Normal 0.0-0.1 [facility] Comment on above: Performed By: #### T SH, LIPID, T4, FT3, CMP #### [facility] [address] [place] [address] Dr. Alicia Patel Basophils/100 WBC (Bld) 0.6 % Normal 0.2-2.0 [facility] Comment on above: Performed By: #### T SH, LIPID, T4, FT3, CMP #### [facility] [address] [place] [address] Dr. Alicia Patel EO # 0.2 103/ul Normal 0.0-0.7 [facility] Comment on above: Performed By: #### T SH, LIPID, T4, FT3, CMP #### [facility] [address] [place] [address] Dr. Alicia Patel Eosinophils/100 WBC (Bld) 4.6 % Normal 0.9-7.0 [facility] Comment on above: Performed By: #### T SH, LIPID, T4, FT3, CMP #### [facility] [address] [place] [address] Dr. Alicia Patel Erythrocyte distribution width (RBC) [Ratio] 14.2 % Normal 11.0-15.0 [facility] Comment on above: Performed By: #### T SH, LIPID, T4, FT3, CMP #### [facility] [address] [place] [address] Dr. Alicia Patel Hematocrit (Bld) [Volume fraction] 36.1 % Critically low 42.0-54.0 [facility] Comment on above: Performed By: #### T SH, LIPID, T4, FT3, CMP #### [facility] [address] [place] [address] Dr. Alicia Patel Hemoglobin (Bld) [Mass/Vol] 11.8 g/dL Critically low 14.0-18.0 [facility] Comment on above: Performed By: #### T SH, LIPID, T4, FT3, CMP #### [facility] [address] [place] [address] Dr. Alicia Patel IG # 0.03 10e3/ul Normal 0.00-0.03 [facility] Comment on above: Performed By: #### T SH, LIPID, T4, FT3, CMP #### [facility] [address] [place] [address] Dr. Alicia Patel IG % 0.6 % Critically high 0.0-0.5 [facility] Comment on above: Performed By: #### T SH, LIPID, T4, FT3, CMP #### [facility] [address] [place] [address] Dr. Alicia Patel LYMPH # 1.1 103/ul Critically low 1.2-3.8 [facility] Comment on above: Performed By: #### T SH, LIPID, T4, FT3, CMP #### [facility] [address] [place] [address] Dr. Alicia Patel Lymphocytes/100 WBC (Bld) 22.6 % Normal 20.5-60.0 [facility] Comment on above: Performed By: #### T SH, LIPID, T4, FT3, CMP #### [facility] [address] [place] [address] Dr. Alicia Patel MANUAL DIFF REQ NO Normal [facility] Comment on above: Performed By: #### T SH, LIPID, T4, FT3, CMP #### [facility] [address] [place] [address] Dr. Alicia Patel MCH (RBC) [Entitic mass] 33.2 pg Normal 25.9-34.0 [facility] Comment on above: Performed By: #### T SH, LIPID, T4, FT3, CMP #### [facility] [address] [place] [address] Dr. Alicia Patel MCHC (RBC) [Mass/Vol] 32.7 g/dL Normal 29.9-35.2 [facility] Comment on above: Performed By: #### T SH, LIPID, T4, FT3, CMP #### [facility] [address] [place] [address] Dr. Alicia Patel MCV (RBC) [Entitic vol] 101.7 fL Critically high 80.0-94.0 [facility] Comment on above: Performed By: #### T SH, LIPID, T4, FT3, CMP #### [facility] [address] [place] [address] Dr. Alicia Patel MONO # 0.7 103/ul Normal 0.3-0.8 [facility] Comment on above: Performed By: #### T SH, LIPID, T4, FT3, CMP #### [facility] [address] [place] [address] Dr. Alicia Patel Monocytes/100 WBC (Bld) 13.8 % Critically high 1.7-12.0 [facility] Comment on above: Performed By: #### T SH, LIPID, T4, FT3, CMP #### [facility] [address] [place] [address] Dr. Alicia Patel NEUT # 2.9 103/ul Normal 1.4-6.5 [facility] Comment on above: Performed By: #### T SH, LIPID, T4, FT3, CMP #### [facility] [address] [place] [address] Dr. Alicia Patel Neutrophils/100 WBC (Bld) 57.8 % Normal 43.0-75.0 [facility] Comment on above: Performed By: #### T SH, LIPID, T4, FT3, CMP #### [facility] [address] [place] [address] Dr. Alicia Patel Platelet mean volume (Bld) [Entitic vol] 10.1 fL Normal 9.5-13.5 [facility] Comment on above: Performed By: #### T SH, LIPID, T4, FT3, CMP #### [facility] [address] [place] [address] Dr. Alicia Patel PLT 160 103/ul Normal 150-450 [facility] Comment on above: Performed By: #### T SH, LIPID, T4, FT3, CMP #### [facility] [address] [place] [address] Dr. Alicia Patel RBC 3.55 106/ul Critically low 4.70-6.10 [facility] Comment on above: Performed By: #### T SH, LIPID, T4, FT3, CMP #### [facility] [address] [place] [address] Dr. Alicia Patel WBC 5.0 103/ul Normal 4.0-11.0 [facility] Comment on above: Performed By: #### T SH, LIPID, T4, FT3, CMP #### [facility] [address] [place] [address] Dr. Alicia Patel PROF CHEM 8 (BAS METB)on Anion gap [Moles/Vol] 13.9 mmol/L Normal [facility] Comment on above: Performed By: #### T SH, LIPID, T4, FT3, CMP #### [facility] [address] [place] [address] Dr. Alicia Patel Calcium [Mass/Vol] 8.3 mg/dL Critically low 8.5-10.1 [facility] Comment on above: Performed By: #### T SH, LIPID, T4, FT3, CMP #### [facility] [address] [place] [address] Dr. Alicia Patel Chloride [Moles/Vol] 108 mmol/L Critically high 98-107 [facility] Comment on above: Performed By: #### T SH, LIPID, T4, FT3, CMP #### [facility] [address] [place] [address] Dr. Alicia Patel CO2 [Moles/Vol] 23.5 mmol/L Normal 21.0-32.0 [facility] Comment on above: Performed By: #### T SH, LIPID, T4, FT3, CMP #### [facility] [address] [place] [address] Dr. Alicia Patel Creatinine [Mass/Vol] 2.41 mg/dL Critically high 0.70-1.30 [facility] Comment on above: Performed By: #### T SH, LIPID, T4, FT3, CMP #### [facility] [address] [place] [address] Dr. Alicia Patel EGFR-AF DOMINICAN 32 mL/min/1.73m2 Critically low >=60 [facility] Comment on above: Performed By: #### T SH, LIPID, T4, FT3, CMP #### [facility] [address] [address] [address] Alicia Patel EGFR-NON AF DOMINICAN 26 mL/min/1.73m2 Critically low >=60 [facility] Comment on above: Performed By: #### T SH, LIPID, T4, FT3, CMP #### [facility] [address] [address] [address] Alicia Patel Glucose [Mass/Vol] 74 mg/dL Normal 74-106 [facility] Comment on above: Performed By: #### T SH, LIPID, T4, FT3, CMP #### [facility] [address] [address] [address] Alicia Patel Potassium [Moles/Vol] 4.4 mmol/L Normal 3.5-5.1 [facility] Comment on above: Performed By: #### T SH, LIPID, T4, FT3, CMP #### [facility] [address] [place] [address] Dr. Alicia Patel Sodium [Moles/Vol] 141 mmol/L Normal 136-145 [facility] Comment on above: Performed By: #### T SH, LIPID, T4, FT3, CMP #### [facility] [address] [address] [address] Alicia Patel Urea nitrogen [Mass/Vol] 36.0 mg/dL Critically high 7.0-18.0 [facility] Comment on above: Performed By: #### T SH, LIPID, T4, FT3, CMP #### [facility] [address] [place] [address] Dr. Alicia Patel Urea nitrogen/Creatinine [Mass ratio] 14.9 mg/mg Normal [facility] Comment on above: Performed By: #### T SH, LIPID, T4, FT3, CMP #### [facility] [address] [place] [address] Dr. Alicia Patel TROPONIN, HIGH SENSITIVITYon 10-14-2022 HSTROP 9.6 pg/mL Normal 4.0-76.1 [facility] Comment on above: Result Comment: CUT- OFF POINTS HAVE BEEN ESTABLISHED BASED ON THE FOURTH UNIVERSAL DEFINITIONS OF MYOCARDIAL INFARCTION. THE UPPER REFERENCE LIMIT (URL) OF TROPONIN, DEFINED THE 99TH PERCENTILE OF cTnI DISTRIBUTION IN A REFERENCE POPULATION, HAS BEEN CONFIRMED THE DECISION THRESHOLD FOR NH DIAGNOSIS. Performed By: #### T SH, LIPID, T4, FT3, CMP #### [facility] [address] [place] [address] Dr. Alicia Patel CHEMISTRYOrdered By: Lab ROP User on 10-07-2022 Glucose [Mass/Vol] 101 mg/dL High 55 - 99 mg/dL [facility] POC Subsection Comment on above: Result Comment: Jackelin quach RN/ POC Device SN [id number] Invalid Interpretation Code [facility] POC Subsection POC User ID [id number] Invalid Interpretation Code [facility] POC Subsection POC Username BEE NORRIS Invalid Interpretation Code [facility] POC Subsection PTH INTACTon 09-14-2022 PTH, Intact 51 pg/mL Normal 15-65 [facility] Comment on above: Performed By: #### T SH, LIPID, T4, FT3, CMP #### [facility] [address] [place] [address] Dr. Alicia Patel HEMOGRAM AND PLATELon 2022 Hematocrit (Bld) [Volume fraction] 32.9 % Critically low 42.0-54.0 [facility] Comment on above: Performed By: #### T SH, LIPID, T4, FT3, CMP #### [facility] [address] [place] [address] Dr. Alicia Patel Hemoglobin (Bld) [Mass/Vol] 10.9 g/dL Critically low 14.0-18.0 [facility] Comment on above: Performed By: #### T SH, LIPID, T4, FT3, CMP #### [facility] [address] [place] [address] Dr. Alicia Patel MCH (RBC) [Entitic mass] 32.6 pg Normal 25.9-34.0 [facility] Comment on above: Performed By: #### T SH, LIPID, T4, FT3, CMP #### [facility] [address] [place] [address] Dr. Alicia Patel MCHC (RBC) [Mass/Vol] 33.1 g/dL Normal 29.9-35.2 [facility] Comment on above: Performed By: #### T SH, LIPID, T4, FT3, CMP #### [facility] [address] [place] [address] Dr. Alicia Patel MCV (RBC) [Entitic vol] 98.5 fL Critically high 80.0-94.0 [facility] Comment on above: Performed By: #### T SH, LIPID, T4, FT3, CMP #### [facility] [address] [place] [address] Dr. Alicia Patel PLT 145 103/ul Critically low 150-450 [facility] Comment on above: Performed By: #### T SH, LIPID, T4, FT3, CMP #### [facility] [address] [place] [address] Dr. Alicia Patel RBC 3.34 106/ul Critically low 4.70-6.10 [facility] Comment on above: Performed By: #### T SH, LIPID, T4, FT3, CMP #### [facility] [address] [place] [address] Dr. Alicia Patel WBC 5.1 103/ul Normal 4.0-11.0 [facility] Comment on above: Performed By: #### T SH, LIPID, T4, FT3, CMP #### [facility] [address] [place] [address] Dr. Alicia Patel MAGNESIUMon 09-13-2022 Magnesium [Mass/Vol] 1.5 mg/dL Critically low 1.8-2.4 [facility] Comment on above: Performed By: #### T SH, LIPID, T4, FT3, CMP #### [facility] [address] [place] [address] Dr. Alicia Patel RENAL FUNCTION PANELon 09-13 Albumin [Mass/Vol] 3.5 g/dL Normal 3.4-5.0 [facility] Comment on above: Performed By: #### U RTPCR #### [facility] [address] [place] [address] Dr. Alicia Patel Calcium [Mass/Vol] 8.4 mg/dL Critically low 8.5-10.1 [facility] Comment on above: Performed By: #### U RTPCR #### [facility] [address] [place] [address] Dr. Alicia Patel Chloride [Moles/Vol] 107 mmol/L Normal 98-107 [facility] Comment on above: Performed By: #### U RTPCR #### [facility] [address] [place] [address] Dr. Alicia Patel CO2 [Moles/Vol] 25.1 mmol/L Normal 21.0-32.0 [facility] Comment on above: Performed By: #### U RTPCR #### [facility] [address] [place] [address] Dr. Alicia Patel Creatinine [Mass/Vol] 1.96 mg/dL Critically high 0.70-1.30 [facility] Comment on above: Performed By: #### U RTPCR #### [facility] [address] [place] [address] Dr. Alicia Patel EGFR-AF DOMINICAN 40 mL/min/1.73m2 Critically low >=60 [facility] Comment on above: Performed By: #### U RTPCR #### [facility] [address] [place] [address] Dr. Alicia Patel EGFR-NON AF DOMINICAN 33 mL/min/1.73m2 Critically low >=60 [facility] Comment on above: Performed By: #### U RTPCR #### [facility] [address] [place] [address] Dr. Alicia Patel Glucose [Mass/Vol] 151 mg/dL Critically high 74-106 [facility] Comment on above: Performed By: #### U RTPCR #### [facility] [address] [place] [address] Dr. Alicia Patel Phosphate [Mass/Vol] 3.5 mg/dL Normal 2.6-4.7 [facility] Comment on above: Performed By: #### U RTPCR #### [facility] [address] [place] [address] Dr. Alicia Patel Potassium [Moles/Vol] 4.3 mmol/L Normal 3.5-5.1 [facility] Comment on above: Performed By: #### U RTPCR #### [facility] [address] [place] [address] Dr. Alicia Patel Sodium [Moles/Vol] 142 mmol/L Normal 136-145 [facility] Comment on above: Performed By: #### U RTPCR #### [facility] [address] [place] [address] Dr. Alicia Patel Urea nitrogen [Mass/Vol] 23.0 mg/dL Critically high 7.0-18.0 [facility] Comment on above: Performed By: #### U RTPCR #### [facility] [address] [place] [address] Dr. Alicia Patel UA RANDOM W/MICROSCOPICon BACTERIA TRACE Abnormal NONE SEEN [facility] Comment on above: Performed By: #### T SH, LIPID, T4, FT3, CMP #### [facility] [address] [place] [address] Dr. Alicia Patel Bilirubin Ql (U) Negative Normal NEGATIVE [facility] Comment on above: Performed By: #### T SH, LIPID, T4, FT3, CMP #### [facility] [address] [place] [address] Dr. Alicia Patel CAST NONE SEEN Normal NONE SEEN [facility] Comment on above: Performed By: #### T SH, LIPID, T4, FT3, CMP #### [facility] [address] [place] [address] Dr. Alicia Patel Clarity (U) CLEAR Normal CLEAR [facility] Comment on above: Performed By: #### T SH, LIPID, T4, FT3, CMP #### [facility] [address] [place] [address] Dr. Alicia Patel Color (U) LT. YELLOW Normal YELLOW [facility] Comment on above: Performed By: #### T SH, LIPID, T4, FT3, CMP #### [facility] [address] [place] [address] Dr. Alicia Patel Crystals LM Nom (Urine sed) NONE SEEN Normal NONE SEEN [facility] Comment on above: Performed By: #### T SH, LIPID, T4, FT3, CMP #### [facility] [address] [place] [address] Dr. Alicia Patel Epithelial cells LM Ql (Urine sed) RARE Normal NONE SEEN /RARE [facility] Comment on above: Performed By: #### T SH, LIPID, T4, FT3, CMP #### [facility] [address] [address] [address] Alicia Patel Glucose Ql (U) 500 mg/dl Abnormal NEGATIVE [facility] Comment on above: Performed By: #### T SH, LIPID, T4, FT3, CMP #### [facility] [address] [place] [address] Dr. Alicia Patel Hemoglobin Ql (U) LARGE Abnormal NEGATIVE [facility] Comment on above: Performed By: #### T SH, LIPID, T4, FT3, CMP #### [facility] [address] [place] [address] Dr. Alicia Patel Ketones Ql (U) Negative Normal NEGATIVE [facility] Comment on above: Performed By: #### T SH, LIPID, T4, FT3, CMP #### [facility] [address] [place] [address] Dr. Alicia Patel LEUKOCYTES Negative Normal NEGATIVE [facility] Comment on above: Performed By: #### T SH, LIPID, T4, FT3, CMP #### [facility] [address] [address] [address] Alicia Patel MUCOUS NONE SEEN Normal NONE SEEN [facility] Comment on above: Performed By: #### T SH, LIPID, T4, FT3, CMP #### [facility] [address] [address] [address] Alicia Patel Nitrite Ql (U) Negative Normal NEGATIVE [facility] Comment on above: Performed By: #### T SH, LIPID, T4, FT3, CMP #### [facility] [address] [place] [address] Dr. Alicia Patel pH (U) 6.0 [pH] Normal 5-9 [facility] Comment on above: Performed By: #### T SH, LIPID, T4, FT3, CMP #### [facility] [address] [address] [address] Alicia Patel RBC 20-50 Abnormal 0-2 [facility] Comment on above: Performed By: #### T SH, LIPID, T4, FT3, CMP #### [facility] [address] [address] [address] Alicia Patel SPEC GRAVITY 1.020 Normal 1.005-<=1. 025 [facility] Comment on above: Performed By: #### T SH, LIPID, T4, FT3, CMP #### [facility] [address] [place] [address] Dr. Alicia Patel UA PROTEIN 100 mg/dl Abnormal NEGATIVE/ TRACE [facility] Comment on above: Performed By: #### T SH, LIPID, T4, FT3, CMP #### [facility] [address] [place] [address] Dr. Alicia Patel Urobilinogen Qn (U) 0.2 {Wil'U}/dL Normal 0.2 - 1. 0 [facility] Comment on above: Performed By: #### T SH, LIPID, T4, FT3, CMP #### [facility] [address] [place] [address] Dr. Alicia Patel WBC 0-2 Abnormal NONE SEEN [facility] Comment on above: Performed By: #### T SH, LIPID, T4, FT3, CMP #### [facility] [address] [place] [address] Dr. Alicia Patel URIC ACID SERUMon 09-13-2022 Urate [Mass/Vol] 5.8 mg/dL Normal 3.5-7.2 [facility] Comment on above: Performed By: #### U RTPCR #### [facility] [address] [place] [address] Dr. Alicia Patel URINE T PROTEIN CREAT RATIOo n 09-13-2022 Protein (U) [Mass/Vol] 122.4 mg/dL Critically high <=12.0 [facility] Comment on above: Performed By: #### U RTPCR #### [facility] [address] [place] [address] Dr. Alicia Patel UR PROT CREAT RAT 1.38 Normal [facility] Comment on above: Performed By: #### U RTPCR #### [facility] [address] [place] [address] Dr. Alicia Patel URINE CREAT 88.74 mg/dL Normal 20.00-300. 00 [facility] Comment on above: Performed By: #### U RTPCR #### [facility] [address] [place] [address] Dr. Alicia Patel VITAMIN D 25 OHon 09-13-2022 VIT D 25-OH 58.0 ng/mL Normal [facility] Comment on above: Performed By: #### T SH, LIPID, T4, FT3, CMP #### [facility] [address] [place] [address] Dr. Alicia Patel VIT D RANGES SEE BELOW Normal [facility] Comment on above: Result Comment: <20 ng/mL Vit D deficient 20 - <30 ng/mL Vit D insufficient 30 - 100 ng/mL Vit D sufficient >100 ng/mL Potential Toxicity Performed By: #### T SH, LIPID, T4, FT3, CMP #### [facility] [address] [place] [address] Dr. Alicia Patel US KIDNEYSon 09-01-2022 US KIDNEYS EXAMINATION: [facility] HISTORY: Kidney stone COMPARISON: No relevant comparison [...] MONSIVAIS Date: 2022-09-01 09:33 Normal [facility] PSA, FREE AND TOTAL RATIOon 08-25-2022 % Free PSA 13.7 % Normal [facility] Comment on above: Result Comment: The [...] SH, LIPID, T4, FT3, CMP #### [facility] [address] [address] [address] Alicia Patel Prostate specific Ag [Mass/Vol] 6.2 ng/mL Critically high 0.0-4.0 [facility] Comment on above: Result Comment: Roch vijay ECLIA methodology. . According to the [facility] [...] SH, LIPID, T4, FT3, CMP #### [facility] [address] [address] [address] Alicia Patel PSA, Free 0.85 ng/mL Normal N/A [facility] Comment on above: Result Comment: Roch e ECLIA methodology. Performed By: #### T SH, LIPID, T4, FT3, CMP #### [facility] [address] [place] [address] Dr. Alicia Patel OCC BLD IMMUNO SCREENon 07-29 OCCULT BLOOD Negative Normal NEGATIVE [facility] Comment on above: Performed By: #### T SH, LIPID, T4, FT3, CMP #### [facility] [address] [place] [address] Dr. Alicia Patel CBC AUTO DIFFon 08-21-2022 BASO # 0.0 103/ul Normal 0.0-0.1 [facility] Comment on above: Performed By: #### U RTPCR #### [facility] [address] [place] [address] Dr. Alicia Patel Basophils/100 WBC (Bld) 0.3 % Normal 0.2-2.0 [facility] Comment on above: Performed By: #### U RTPCR #### [facility] [address] [place] [address] Dr. Alicia Patel EO # 0.2 103/ul Normal 0.0-0.7 [facility] Comment on above: Performed By: #### U RTPCR #### [facility] [address] [place] [address] Dr. Alicia Patel Eosinophils/100 WBC (Bld) 3.2 % Normal 0.9-7.0 [facility] Comment on above: Performed By: #### U RTPCR #### [facility] [address] [place] [address] Dr. Alicia Patel Erythrocyte distribution width (RBC) [Ratio] 12.9 % Normal 11.0-15.0 [facility] Comment on above: Performed By: #### U RTPCR #### [facility] [address] [place] [address] Dr. Alicia Patel Hematocrit (Bld) [Volume fraction] 35.4 % Critically low 42.0-54.0 [facility] Comment on above: Performed By: #### U RTPCR #### [facility] [address] [place] [address] Dr. Alicia Patel Hemoglobin (Bld) [Mass/Vol] 11.7 g/dL Critically low 14.0-18.0 [facility] Comment on above: Performed By: #### U RTPCR #### [facility] [address] [address] [address] Alicia Patel IG # 0.08 10e3/ul Critically high 0.00-0.03 [facility] Comment on above: Performed By: #### U RTPCR #### [facility] [address] [address] [address] Alicia Patel IG % 1.2 % Critically high 0.0-0.5 [facility] Comment on above: Performed By: #### U RTPCR #### [facility] [address] [address] [address] Alicia Patel LYMPH # 1.1 103/ul Critically low 1.2-3.8 [facility] Comment on above: Performed By: #### U RTPCR #### [facility] [address] [place] [address] Dr. Alicia Patel Lymphocytes/100 WBC (Bld) 16.6 % Critically low 20.5-60.0 [facility] Comment on above: Performed By: #### U RTPCR #### [facility] [address] [address] [address] Alicia Patel MANUAL DIFF REQ NO Normal [facility] Comment on above: Performed By: #### U RTPCR #### [facility] [address] [place] [address] Dr. Alicia Patel MCH (RBC) [Entitic mass] 32.4 pg Normal 25.9-34.0 [facility] Comment on above: Performed By: #### U RTPCR #### [facility] [address] [address] [address] Alicia Patel MCHC (RBC) [Mass/Vol] 33.1 g/dL Normal 29.9-35.2 [facility] Comment on above: Performed By: #### U RTPCR #### [facility] [address] [place] [address] Dr. Alicia Patel MCV (RBC) [Entitic vol] 98.1 fL Critically high 80.0-94.0 [facility] Comment on above: Performed By: #### U RTPCR #### [facility] [address] [address] [address] Alicia Patel MONO # 0.6 103/ul Normal 0.3-0.8 [facility] Comment on above: Performed By: #### U RTPCR #### [facility] [address] [address] [address] Alicia Patel Monocytes/100 WBC (Bld) 8.8 % Normal 1.7-12.0 [facility] Comment on above: Performed By: #### U RTPCR #### [facility] [address] [address] [address] Alicia Patel NEUT # 4.8 103/ul Normal 1.4-6.5 [facility] Comment on above: Performed By: #### U RTPCR #### [facility] [address] [place] [address] Dr. Alicia Patel Neutrophils/100 WBC (Bld) 69.9 % Normal 43.0-75.0 [facility] Comment on above: Performed By: #### U RTPCR #### [facility] [address] [place] [address] Dr. Alicia Patel Platelet mean volume (Bld) [Entitic vol] 10.4 fL Normal 9.5-13.5 [facility] Comment on above: Performed By: #### U RTPCR #### [facility] [address] [place] [address] Dr. Alicia Patel PLT 200 103/ul Normal 150-450 [facility] Comment on above: Performed By: #### U RTPCR #### [facility] [address] [address] [address] Alicia Patel RBC 3.61 106/ul Critically low 4.70-6.10 [facility] Comment on above: Performed By: #### U RTPCR #### [facility] [address] [address] [address] Alicia Patel WBC 6.8 103/ul Normal 4.0-11.0 [facility] Comment on above: Performed By: #### U RTPCR #### [facility] [address] [place] [address] Dr. Alicia Patel FREE T3on 08-21-2022 FREE T3 1.91 pg/mlL Critically low 2.18-3.98 [facility] Comment on above: Performed By: #### T SH, LIPID, T4, FT3, CMP #### [facility] [address] [place] [address] Dr. Alicia Patel GLYCOHEMOGLOBIN A1Con 2022 ADA RECOMMENDATION SEE BELOW Normal [facility] Comment on above: Result Comment: ADA RECOMMENDED LIMIT 4.0 - 6.0 ADA THERAPEUTIC TARGET < 7.0 ACTION SUGGESTED > 7.0 Performed By: #### T SH, LIPID, T4, FT3, CMP #### [facility] [address] [place] [address] Dr. Alicia Patel Glucose [Mass/Vol] 194 mg/dL Normal [facility] Comment on above: Performed By: #### T SH, LIPID, T4, FT3, CMP #### [facility] [address] [place] [address] Dr. Alicia Patel HbA1c (Bld) [Mass fraction] 8.4 % Critically high 4.5-6.2 [facility] Comment on above: Performed By: #### T SH, LIPID, T4, FT3, CMP #### [facility] [address] [place] [address] Dr. Alicia Patel LIPID PROFILEon 08-21-2022 CHOL-HDL RATIO NORM SEE BELOW Normal [facility] Comment on above: Result Comment: 3.3 - 4.4 LOW RISK 4.4 - 7.1 AVERAGE RISK 7.1 - 11.0 MODERATE RISK >11.0 HIGH RISK Performed By: #### T SH, LIPID, T4, FT3, CMP #### [facility] [address] [place] [address] Dr. Alicia Patel Cholesterol [Mass/Vol] 120 mg/dL Normal <=200 [facility] Comment on above: Performed By: #### T SH, LIPID, T4, FT3, CMP #### [facility] [address] [place], [place] [id number] Dr. Alicia Patel Cholesterol in HDL [Mass/Vol] 30 mg/dL Critically low 40-60 [facility] Comment on above: Performed By: #### T SH, LIPID, T4, FT3, CMP #### [facility] [address] [address] [address] Alicia Patel Cholesterol in LDL [Mass/Vol] 59.8 mg/dL Normal [facility] Comment on above: Performed By: #### T SH, LIPID, T4, FT3, CMP #### [facility] [address] [address] [address] Alicia Patel Cholesterol.total/Chol esterol in HDL [Mass ratio] 4.0 {ratio} Normal [facility] Comment on above: Performed By: #### T SH, LIPID, T4, FT3, CMP #### [facility] [address] [place] [address] Dr. Alicia Patel HDL NORMAL > or = 60 mg/dl - LO W CARDIOVASCULAR RISK <40 mg/dl - HIGH CARDIOVASCULAR RISK Normal [facility] Comment on above: Performed By: #### T SH, LIPID, T4, FT3, CMP #### [facility] [address] [address] [address] Alicia Patel LDL CALC NORMAL SEE BELOW Normal [facility] Comment on above: Result Comment: <100 mg/dl OPTIMAL 100 - 129 mg/dl NEAR OR ABOVE OPTIMAL 130 - 159 mg/dl BORDERLINE HIGH 160 - 189 mg/dl HIGH >190 mg/dl VERY HIGH Performed By: #### T SH, LIPID, T4, FT3, CMP #### [facility] [address] [place] [address] Dr. Alicia Patel Triglyceride [Mass/Vol] 151 mg/dL Critically high <=150 [facility] Comment on above: Performed By: #### T SH, LIPID, T4, FT3, CMP #### [facility] [address] [place] [address] Dr. Alicia Patel VLDL CALC 30.2 mg/dL Normal [facility] Comment on above: Performed By: #### T SH, LIPID, T4, FT3, CMP #### [facility] [address] [place] [address] Dr. Alicia Patel PROF 14(COMP METB)on 023 Albumin [Mass/Vol] 3.3 g/dL Critically low 3.4-5.0 [facility] Comment on above: Performed By: #### T SH, LIPID, T4, FT3, CMP #### [facility] [address] [place] [address] Dr. Alicia Patel Albumin/Globulin [Mass ratio] 0.9 {ratio} Normal [facility] Comment on above: Performed By: #### T SH, LIPID, T4, FT3, CMP #### [facility] [address] [place] [address] Dr. Alicia Patel ALP [Catalytic activity/Vol] 79 U/L Normal 46-116 [facility] Comment on above: Performed By: #### T SH, LIPID, T4, FT3, CMP #### [facility] [address] [place] [address] Dr. Alicia Patel ALT [Catalytic activity/Vol] 61 U/L Normal 16-63 [facility] Comment on above: Performed By: #### T SH, LIPID, T4, FT3, CMP #### [facility] [address] [place] [address] Dr. Alicia Patel Anion gap [Moles/Vol] 12.6 mmol/L Normal [facility] Comment on above: Performed By: #### T SH, LIPID, T4, FT3, CMP #### [facility] [address] [place] [address] Dr. Alicia Patel AST [Catalytic activity/Vol] 39 U/L Critically high 15-37 [facility] Comment on above: Performed By: #### T SH, LIPID, T4, FT3, CMP #### [facility] [address] [place] [address] Dr. Alicia Patel Bilirubin [Mass/Vol] 0.7 mg/dL Normal 0.2-1.0 [facility] Comment on above: Performed By: #### T SH, LIPID, T4, FT3, CMP #### [facility] [address] [place] [address] Dr. Alicia Patel Calcium [Mass/Vol] 8.9 mg/dL Normal 8.5-10.1 [facility] Comment on above: Performed By: #### T SH, LIPID, T4, FT3, CMP #### [facility] [address] [place] [address] Dr. Alicia Patel Chloride [Moles/Vol] 111 mmol/L Critically high 98-107 [facility] Comment on above: Performed By: #### T SH, LIPID, T4, FT3, CMP #### [facility] [address] [place] [address] Dr. Alicia Patel CO2 [Moles/Vol] 24.0 mmol/L Normal 21.0-32.0 [facility] Comment on above: Performed By: #### T SH, LIPID, T4, FT3, CMP #### [facility] [address] [place] [address] Dr. Alicia Patel Creatinine [Mass/Vol] 1.80 mg/dL Critically high 0.70-1.30 [facility] Comment on above: Performed By: #### T SH, LIPID, T4, FT3, CMP #### [facility] [address] [place] [address] Dr. Alicia Patel EGFR-AF DOMINICAN 44 mL/min/1.73m2 Critically low >=60 [facility] Comment on above: Performed By: #### T SH, LIPID, T4, FT3, CMP #### [facility] [address] [place] [address] Dr. Alicia Patel EGFR-NON AF DOMINICAN 36 mL/min/1.73m2 Critically low >=60 [facility] Comment on above: Performed By: #### T SH, LIPID, T4, FT3, CMP #### [facility] [address] [place] [address] Dr. Alicia Patel Globulin (S) [Mass/Vol] 3.5 g/dL Normal [facility] Comment on above: Performed By: #### T SH, LIPID, T4, FT3, CMP #### [facility] [address] [place] [address] Dr. Alicia Patel Glucose [Mass/Vol] 118 mg/dL Critically high 74-106 [facility] Comment on above: Performed By: #### T SH, LIPID, T4, FT3, CMP #### [facility] [address] [place] [address] Dr. Alicia Patel Potassium [Moles/Vol] 4.6 mmol/L Normal 3.5-5.1 [facility] Comment on above: Performed By: #### T SH, LIPID, T4, FT3, CMP #### [facility] [address] [place] [address] Dr. Alicia Patel Protein [Mass/Vol] 6.8 g/dL Normal 6.4-8.2 [facility] Comment on above: Performed By: #### T SH, LIPID, T4, FT3, CMP #### [facility] [address] [place] [address] Dr. Alicia Patel Sodium [Moles/Vol] 143 mmol/L Normal 136-145 [facility] Comment on above: Performed By: #### T SH, LIPID, T4, FT3, CMP #### [facility] [address] [place] [address] Dr. Alicia Patel Urea nitrogen [Mass/Vol] 31.0 mg/dL Critically high 7.0-18.0 [facility] Comment on above: Performed By: #### T SH, LIPID, T4, FT3, CMP #### [facility] [address] [place] [address] Dr. Alicia Patel Urea nitrogen/Creatinine [Mass ratio] 17.2 mg/mg Normal [facility] Comment on above: Performed By: #### T SH, LIPID, T4, FT3, CMP #### [facility] [address] [place] [address] Dr. Alicia Patel T4on 08-21-2022 T4 [Mass/Vol] 7.70 ug/dL Normal 4.50-12.10 [facility] Comment on above: Performed By: #### T SH, LIPID, T4, FT3, CMP #### [facility] [address] [address] [address] Alicia Patel TSHon 08-21-2022 TSH 1.138 uIU/mL Normal 0.358-3.74 0 [facility] Comment on above: Performed By: #### T SH, LIPID, T4, FT3, CMP #### [facility] [address] [address] [address] Alicia Patel RENAL FUNCTION PANELon 08-18 Albumin [Mass/Vol] 3.3 g/dL Critically low 3.4-5.0 [facility] Comment on above: Performed By: #### U RTPCR #### [facility] [address] [address] [address] Alicia Patel Calcium [Mass/Vol] 8.3 mg/dL Critically low 8.5-10.1 [facility] Comment on above: Performed By: #### U RTPCR #### [facility] [address] [place] [address] Dr. Alicia Patel Chloride [Moles/Vol] 109 mmol/L Critically high 98-107 [facility] Comment on above: Performed By: #### U RTPCR #### [facility] [address] [address] [address] Alicia Patel CO2 [Moles/Vol] 22.1 mmol/L Normal 21.0-32.0 [facility] [facility] Comment on above: Performed By: #### U RTPCR #### [facility] [address] [address] [address] Alicia Patel Creatinine [Mass/Vol] 2.14 mg/dL Critically high 0.70-1.30 [facility] Comment on above: Performed By: #### U RTPCR #### [facility] [address] [address] [address] Alicia Patel EGFR-AF DOMINICAN 36 mL/min/1.73m2 Critically low >=60 [facility] Comment on above: Performed By: #### U RTPCR #### [facility] [address] [address] [address] Alicia Patel EGFR-NON AF DOMINICAN 30 mL/min/1.73m2 Critically low >=60 [facility] Comment on above: Performed By: #### U RTPCR #### [facility] [address] [address] [address] Alicia Patel Glucose [Mass/Vol] 102 mg/dL Normal 74-106 [facility] Comment on above: Performed By: #### U RTPCR #### [facility] [address] [address] [address] Alicia Patel Phosphate [Mass/Vol] 3.1 mg/dL Normal 2.6-4.7 [facility] Comment on above: Performed By: #### U RTPCR #### [facility] [address] [address] [address] Alicia Patel Potassium [Moles/Vol] 3.9 mmol/L Normal 3.5-5.1 [facility] Comment on above: Performed By: #### U RTPCR #### [facility] [address] [address] [address] Alicia Patel Sodium [Moles/Vol] 141 mmol/L Normal 136-145 [facility] Comment on above: Performed By: #### U RTPCR #### [facility] [address] [address] [address] Alicia Patel Urea nitrogen [Mass/Vol] 41.0 mg/dL Critically high 7.0-18.0 [facility] Comment on above: Performed By: #### U RTPCR #### [facility] [address] [address] [address] Alicia Patel Creatinine and Glomerular fi ltration rate.predicted panel (S/P/Bld)Ordered By: Hiral Interiano on 08-15-2022 Creatinine [Mass/Vol] 3.46 mg/dL 0.64-1.27 [facility] Comment on above: Delta: 6.60 on 08/14-3 Estimated glomerular filtrat ion rate (GFR) non- AmericanOrdered By: Hiral nIteriano on 08-15-2022 GFR/1.73 sq M.predicted among non-blacks MDRD (S/P/Bld) [Vol rate/Area] 17 mL/Min [facility] Glucose Glucometer (BldC) [M ass/Vol]Ordered By: Hiral Interiano on 08-15-2022 Glucose [Mass/Vol] 135 mg/dL [facility] Comment on above: Random Glucose Refer ence Range is dependent on time and content of last meal. Glucose of more than 200 mg/dL in a nonstressed, ambulatory subject supports the diagnosis of Diabetes Mellitus. No Panel InformationOrdered By: Hiral Interiano on 08-15-2022 Estimated GFR () 21 mL/Min [facility] Comment on above: GFR estimated refere nce range: According to KDOQI guidelines, <60 ml/min/1.73m2 is sufficient to diagnose a patient with chronic kidney disease. Pharmacy Creatinine Clearance (Chem 21.94 [facility] Serum or plasma anion gap de terminationOrdered By: Hiral Interiano on 08-15-2022 Anion gap [Moles/Vol] 10.3 mmol/L 6.0-15.0 [facility] Serum or plasma calcium alpesh urement (mass/volume)Ordered By: Hiral Interiano on 08-15-2022 Calcium [Mass/Vol] 7.7 mg/dL 8.2-10.2 [facility] Serum or plasma chloride adina surement (moles/volume)Ordered By: Hiral Interiano on 08-15-2022 Chloride [Moles/Vol] 112 mmol/L 95-114 [facility] Serum or plasma glucose alpesh urement (mass/volume)Ordered By: Hiral Interiano on 08-15-2022 Glucose [Mass/Vol] 140 mg/dL 70-100 [facility] Comment on above: ADA recommended refe rence rangeRandom Glucose Reference Range is dependent on time and content of last meal. Glucose of more than 200 mg/dL in a nonstressed, ambulatory subject supports the diagnosis of Diabetes Mellitus. Serum or plasma potassium me asurement (moles/volume)Ordered By: Hiral Interiano on 08-15-2022 Potassium [Moles/Vol] 3.8 mmol/L 3.5-5.1 [facility] Serum or plasma sodium measu rement (moles/volume)Ordered By: Hiral Interiano on 08-15-2022 Sodium [Moles/Vol] 140 mmol/L 136-146 [facility] Serum or plasma total carbon dioxide measurement (moles/volume)Ordered By: Hiral Interiano on 08-15-2022 CO2 [Moles/Vol] 21.5 mmol/L 22.0-30.0 [facility] Serum or plasma urea nitroge n measurement (mass/volume)Ordered By: Hiral Interiano on 08-15-2022 Urea nitrogen [Mass/Vol] 45 mg/dL 9- [facility] Basophils Auto (Bld) [#/Vol] Ordered By: Hiral Interiano on 08-14-2022 Basophils (Bld) [#/Vol] 0.0 10*3/uL 0.0-0.2 [facility] Basophils/100 WBC Auto (Bld) Ordered By: Hiral Inetriano on 08-14-2022 Basophils/100 WBC (Bld) 0.2 % . [facility] Eosinophils Auto (Bld) [#/Vo l]Ordered By: Hiral Interiano on 08-14-2022 Eosinophils (Bld) [#/Vol] 0.1 10*3/uL 0.0-0.45 [facility] Eosinophils/100 WBC Auto (Bl d)Ordered By: Hiral Interiano on 08-14-2022 Eosinophils/100 WBC (Bld) 1.0 % . [facility] Erythrocyte distribution wid th Auto (RBC) [Ratio]Ordered By: Hiral Interiano on 08-14-2022 Erythrocyte distribution width (RBC) [Ratio] 13.5 % 12.0-14.8 [facility] Hematocrit Auto (Bld) [Volum e fraction]Ordered By: Hiral Interiano on 08-14-2022 Hematocrit (Bld) [Volume fraction] 35.4 % 38.8-50.0 [facility] Hemoglobin [Mass/volume] in BloodOrdered By: Hiral Interiano on 08-14-2022 Hemoglobin (Bld) [Mass/Vol] 12.0 g/dL 13.0-17.0 [facility] Leukocytes [#/volume] correc ike for nucleated erythrocytes in Blood by Automated counOrdered By: Hiral Interiano on 08-14-2022 WBC corrected for nucl RBC Auto (Bld) [#/Vol] 7.4 10*3/uL 4.1-10.5 [facility] Lymphocytes Auto (Bld) [#/Vo l]Ordered By: Hiral Interiano on 08-14-2022 Lymphocytes (Bld) [#/Vol] 0.6 10*3/uL 1.00-4.8 [facility] Lymphocytes/100 WBC Auto (Bl d)Ordered By: Hiral Interiano on 08-14-2022 Lymphocytes/100 WBC (Bld) 7.8 % . [facility] MCH Auto (RBC) [Entitic mass ]Ordered By: Hiral Interiano on 08-14-2022 MCH (RBC) [Entitic mass] 33.0 pg 27.5-35.2 [facility] MCHC Auto (RBC) [Mass/Vol]Or dered By: Hiral Interiano on 08-14-2022 MCHC (RBC) [Mass/Vol] 33.9 g/dL 32.5-35.6 [facility] MCV Auto (RBC) [Entitic vol] Ordered By: Hiral Interiano on 08-14-2022 MCV (RBC) [Entitic vol] 97.3 fL 83.5-101 [facility] Monocytes Auto (Bld) [#/Vol] Ordered By: Hiral Interiano on 08-14-2022 Monocytes (Bld) [#/Vol] 0.8 10*3/uL 0.0-0.8 [facility] Monocytes/100 WBC Auto (Bld) Ordered By: Hiral Interiano on 08-14-2022 Monocytes/100 WBC (Bld) 11.4 % . [facility] Neutrophils Auto (Bld) [#/Vo l]Ordered By: Hiral Interiano on 08-14-2022 Neutrophils (Bld) [#/Vol] 5.9 10*3/uL 1.8-7.7 [facility] Neutrophils/100 WBC Auto (Bl d)Ordered By: Hiral Interiano on 08-14-2022 Neutrophils/100 WBC (Bld) 79.6 % . [facility] No Panel InformationOrdered By: Hiral Interiano on 08-14-2022 Bedside Glucose Comment Glu2: cleaned meter [facility] Nucleated erythrocytes [Pres ence] in Blood by Automated countOrdered By: Hiral Interiano on 08-14-2022 Nucleated RBC Auto Ql (Bld) 0.1 /100{WBC} 0-0.5 [facility] Platelet mean volume Auto (B ld) [Entitic vol]Ordered By: Hiral Interiano on 08-14-2022 Platelet mean volume (Bld) [Entitic vol] 8.4 fL 6.6-10.1 [facility] Platelets Auto (Bld) [#/Vol] Ordered By: Hiral Interiano on 08-14-2022 Platelets (Bld) [#/Vol] 121 10*3/uL 150-450 [facility] RBC Auto (Bld) [#/Vol]Ordere d By: Hiral Interiano on 08-14-2022 RBC (Bld) [#/Vol] 3.64 10*6/uL 3.90-5.60 [facility] WBC Auto (Bld) [#/Vol]Ordere d By: Hiral Interiano on 08-14-2022 WBC (Bld) [#/Vol] 7.4 10*3/uL 4.1-10.5 [facility] Body fluid albumin measureme nt (mass/volume)Ordered By: Alicia León on 08-13-2022 Albumin (Body fld) [Mass/Vol] 3.0 g/dL 3.2-5.5 [facility] Glucose mean value [Mass/vol ume] in Blood Estimated from glycated hemoglobinOrdered By: Hiral Interiano on 08-12-2022 Average glucose Estimated from glycated hemoglobin (Bld) [Mass/Vol] 212 mg/dL [facility] Hemoglobin A1c percentageOrd ered By: Hiral Interiano on 08-12-2022 HbA1c (Bld) [Mass fraction] 9.0 % 4.3-5.6 [facility] Comment on above: Increased risk for d iabetes: 5.7 - 6.4diabetes: >6.4glycemic control for adults with diabetes: <7.0 Anisocytosis LM Ql (Bld)Orde red By: Hiral Interiano on 08-11-2022 Anisocytosis Ql (Bld) Slight [facility] Band form neutrophils/100 WB C Manual cnt (Bld)Ordered By: Hiral Inteirano on 08-11-2022 Band form neutrophils/100 WBC (Bld) 1 % 0-5 [facility] Beta-hydroxybutyric acid adina surementOrdered By: Alicia León on 08-11-2022 Beta hydroxybutyrate [Mass/Vol] 2.40 mmol/L 0.05-0.27 [facility] Amie cells [Presence] in Blo od by Light microscopyOrdered By: Hiral Interiano on 08-11-2022 Amie cells LM Ql (Bld) Slight [facility] CARDIAC GUIDO 3-6on 3 CK [Catalytic activity/Vol] 162 U/L Normal 39-308 [facility] Comment on above: Performed By: #### T SH, LIPID, T4, FT3, CMP #### [facility] [address] [address] [address] Alicia Patel CK.MB [Mass/Vol] 5.52 ng/mL Critically high <=3.60 [facility] Comment on above: Performed By: #### T SH, LIPID, T4, FT3, CMP #### [facility] [address] [address] [address] Alicia Patel HSTROP 19.7 pg/mL Normal 4.0-76.1 [facility] Comment on above: Result Comment: CUT- OFF POINTS HAVE BEEN ESTABLISHED BASED ON THE FOURTH UNIVERSAL DEFINITIONS OF MYOCARDIAL INFARCTION. THE UPPER REFERENCE LIMIT (URL) OF TROPONIN, DEFINED THE 99TH PERCENTILE OF cTnI DISTRIBUTION IN A REFERENCE POPULATION, HAS BEEN CONFIRMED THE DECISION THRESHOLD FOR [place] DIAGNOSIS. Performed By: #### T SH, LIPID, T4, FT3, CMP #### [facility] [address] [address] [address] Alicia Patel CK [Catalytic activity/Vol] 150 U/L Normal 39-308 [facility] Comment on above: Performed By: #### T SH, LIPID, T4, FT3, CMP #### [facility] [address] [place] [address] Dr. Alicia Patel CK.MB [Mass/Vol] 4.99 ng/mL Critically high <=3.60 [facility] Comment on above: Performed By: #### T SH, LIPID, T4, FT3, CMP #### [facility] [address] [place] [address] Dr. Alicia Patel HSTROP 16.9 pg/mL Normal 4.0-76.1 [facility] Comment on above: Result Comment: CUT- OFF POINTS HAVE BEEN ESTABLISHED BASED ON THE FOURTH UNIVERSAL DEFINITIONS OF MYOCARDIAL INFARCTION. THE UPPER REFERENCE LIMIT (URL) OF TROPONIN, DEFINED THE 99TH PERCENTILE OF cTnI DISTRIBUTION IN A REFERENCE POPULATION, HAS BEEN CONFIRMED THE DECISION THRESHOLD FOR NH DIAGNOSIS. Performed By: #### T SH, LIPID, T4, FT3, CMP #### [facility] [address] [place] [address] Dr. Alicia Patel CARDIAC GUIDO ADMITon 023 CK [Catalytic activity/Vol] 128 U/L Normal 39-308 [facility] Comment on above: Performed By: #### T SH, LIPID, T4, FT3, CMP #### [facility] [address] [place] [address] Dr. Alicia Patel CK.MB [Mass/Vol] 4.95 ng/mL Critically high <=3.60 [facility] Comment on above: Performed By: #### T SH, LIPID, T4, FT3, CMP #### [facility] [address] [place] [address] Dr. Alicia Patel HSTROP 18.0 pg/mL Normal 4.0-76.1 [facility] Comment on above: Result Comment: CUT- OFF POINTS HAVE BEEN ESTABLISHED BASED ON THE FOURTH UNIVERSAL DEFINITIONS OF MYOCARDIAL INFARCTION. THE UPPER REFERENCE LIMIT (URL) OF TROPONIN, DEFINED THE 99TH PERCENTILE OF cTnI DISTRIBUTION IN A REFERENCE POPULATION, HAS BEEN CONFIRMED THE DECISION THRESHOLD FOR NH DIAGNOSIS. Performed By: #### T SH, LIPID, T4, FT3, CMP #### [facility] [address] [place], [place] [id number] Dr. Alicia Patel LIZZY 188 ng/mL Critically high 16-96 [facility] Comment on above: Performed By: #### T SH, LIPID, T4, FT3, CMP #### [facility] [address] [place] [address] Dr. Alicia Patel CBC AUTO DIFFon 08-11-2022 BASO # 0.0 103/ul Normal 0.0-0.1 [facility] Comment on above: Performed By: #### T SH, LIPID, T4, FT3, CMP #### [facility] [address] [place] [address] Dr. Alicia Patel Basophils/100 WBC (Bld) 0.3 % Normal 0.2-2.0 [facility] Comment on above: Performed By: #### T SH, LIPID, T4, FT3, CMP #### [facility] [address] [place] [address] Dr. Alicia Patel EO # 0.2 103/ul Normal 0.0-0.7 [facility] Comment on above: Performed By: #### T SH, LIPID, T4, FT3, CMP #### [facility] [address] [place] [address] Dr. Alicia Patel Eosinophils/100 WBC (Bld) 1.8 % Normal 0.9-7.0 [facility] Comment on above: Performed By: #### T SH, LIPID, T4, FT3, CMP #### [facility] [address] [place] [address] Dr. Alicia Patel Erythrocyte distribution width (RBC) [Ratio] 13.2 % Normal 11.0-15.0 [facility] Comment on above: Performed By: #### T SH, LIPID, T4, FT3, CMP #### [facility] [address] [place] [address] Dr. Alicia Patel Hematocrit (Bld) [Volume fraction] 36.0 % Critically low 42.0-54.0 [facility] Comment on above: Performed By: #### T SH, LIPID, T4, FT3, CMP #### [facility] [address] [place], [place] [id number] Dr. Alicia Patel Hemoglobin (Bld) [Mass/Vol] 12.0 g/dL Critically low 14.0-18.0 [facility] Comment on above: Performed By: #### T SH, LIPID, T4, FT3, CMP #### [facility] [address] [place] [address] Dr. Alicia Patel IG # 0.34 10e3/ul Critically high 0.00-0.03 [facility] Comment on above: Performed By: #### T SH, LIPID, T4, FT3, CMP #### [facility] [address] [place] [address] Dr. Alicia Patel IG % 3.8 % Critically high 0.0-0.5 [facility] Comment on above: Performed By: #### T SH, LIPID, T4, FT3, CMP #### [facility] [address] [place] [address] Dr. Alicia Patel LYMPH # 0.5 103/ul Critically low 1.2-3.8 [facility] Comment on above: Performed By: #### T SH, LIPID, T4, FT3, CMP #### [facility] [address] [place] [address] Dr. Alicia Patel Lymphocytes/100 WBC (Bld) 5.9 % Critically low 20.5-60.0 [facility] Comment on above: Performed By: #### T SH, LIPID, T4, FT3, CMP #### [facility] [address] [place] [address] Dr. Alicia Patel MANUAL DIFF REQ NO Normal [facility] Comment on above: Performed By: #### T SH, LIPID, T4, FT3, CMP #### [facility] [address] [place] [address] Dr. Alicia Patel MCH (RBC) [Entitic mass] 32.3 pg Normal 25.9-34.0 [facility] Comment on above: Performed By: #### T SH, LIPID, T4, FT3, CMP #### [facility] [address] [place] [address] Dr. Alicia Patel MCHC (RBC) [Mass/Vol] 33.3 g/dL Normal 29.9-35.2 [facility] Comment on above: Performed By: #### T SH, LIPID, T4, FT3, CMP #### [facility] [address] [place] [address] Dr. Alicia Patel MCV (RBC) [Entitic vol] 97.0 fL Critically high 80.0-94.0 [facility] Comment on above: Performed By: #### T SH, LIPID, T4, FT3, CMP #### [facility] [address] [place] [address] Dr. Alicia Patel MONO # 0.5 103/ul Normal 0.3-0.8 [facility] Comment on above: Performed By: #### T SH, LIPID, T4, FT3, CMP #### [facility] [address] [place] [address] Dr. Alicia Patel Monocytes/100 WBC (Bld) 5.5 % Normal 1.7-12.0 [facility] Comment on above: Performed By: #### T SH, LIPID, T4, FT3, CMP #### [facility] [address] [place] [address] Dr. Alicia Patel NEUT # 7.5 103/ul Critically high 1.4-6.5 [facility] Comment on above: Performed By: #### T SH, LIPID, T4, FT3, CMP #### [facility] [address] [place] [address] Dr. Alicia Patel Neutrophils/100 WBC (Bld) 82.7 % Critically high 43.0-75.0 [facility] Comment on above: Performed By: #### T SH, LIPID, T4, FT3, CMP #### [facility] [address] [place] [address] Dr. Alicia Patel Platelet mean volume (Bld) [Entitic vol] 10.2 fL Normal 9.5-13.5 [facility] Comment on above: Performed By: #### T SH, LIPID, T4, FT3, CMP #### [facility] [address] [place] [address] Dr. Alicia Patel PLT 191 103/ul Normal 150-450 [facility] Comment on above: Performed By: #### T SH, LIPID, T4, FT3, CMP #### [facility] [address] [address] [address] Alicia Patel RBC 3.71 106/ul Critically low 4.70-6.10 [facility] Comment on above: Performed By: #### T SH, LIPID, T4, FT3, CMP #### [facility] [address] [address] [address] Alicia Patel WBC 9.0 103/ul Normal 4.0-11.0 [facility] Comment on above: Performed By: #### T SH, LIPID, T4, FT3, CMP #### [facility] [address] ABD/PELVIS WO CONon [...] [place] Date: 2022-08-11 08:38 Normal [facility] Covid-19 PCR (CVDTBH)on 07-28 SARS-CoV-2 (COVID-19) RNA SAVANNAH+probe Ql (Unsp spec) Not detected Normal NOT DETECTED [facility] Comment on above: Result Comment: When [...] for this test is supported by the [place] of Health and Human Service's declaration that [...] SH, LIPID, T4, FT3, CMP #### [facility] [address] [place] [address] Dr. Alicia Patel ER URINE PROFILEon 3 Bilirubin Ql (U) Negative Normal NEGATIVE [facility] Comment on above: Performed By: #### T SH, LIPID, T4, FT3, CMP #### [facility] [address] [place] [address] Dr. Alicia Patel Clarity (U) CLEAR Normal CLEAR [facility] Comment on above: Performed By: #### T SH, LIPID, T4, FT3, CMP #### [facility] [address] [place] [address] Dr. Alicia Patel Color (U) LT. YELLOW Normal YELLOW [facility] Comment on above: Performed By: #### T SH, LIPID, T4, FT3, CMP #### [facility] [address] [place] [address] Dr. Alicia Patel ERUAHD A micrscopic examina tion will be performed if indicated. Normal [facility] Comment on above: Performed By: #### T SH, LIPID, T4, FT3, CMP #### [facility] [address] [address] [address] Alicia Patel Glucose Ql (U) Negative Normal NEGATIVE [facility] Comment on above: Performed By: #### T SH, LIPID, T4, FT3, CMP #### [facility] [address] [address] [address] Alicia Patel Hemoglobin Ql (U) SMALL Abnormal NEGATIVE [facility] Comment on above: Performed By: #### T SH, LIPID, T4, FT3, CMP #### [facility] [address] [address] [address] Alicia Patel Ketones Ql (U) Negative Normal NEGATIVE [facility] Comment on above: Performed By: #### T SH, LIPID, T4, FT3, CMP #### [facility] [address] [place] [address] Dr. Alicia Patel LEUKOCYTES Negative Normal NEGATIVE [facility] Comment on above: Performed By: #### T SH, LIPID, T4, FT3, CMP #### [facility] [address] [address] [address] Alicia Patel Nitrite Ql (U) Negative Normal NEGATIVE [facility] Comment on above: Performed By: #### T SH, LIPID, T4, FT3, CMP #### [facility] [address] [address] [address] Alicia Patel pH (U) 6.0 [pH] Normal 5-9 [facility] Comment on above: Performed By: #### T SH, LIPID, T4, FT3, CMP #### [facility] [address] [address] [address] Alicia Patel Protein (U) [Mass/Vol] 100 mg/dL Abnormal NEGAT ОЛЕГ/ TRACE [facility] Comment on above: Performed By: #### T SH, LIPID, T4, FT3, CMP #### [facility] [address] [place] [address] Dr. Alicia Patel SPEC GRAVITY 1.015 Normal 1.005-<=1. 025 [facility] Comment on above: Performed By: #### T SH, LIPID, T4, FT3, CMP #### [facility] [address] [address] [address] Alicia Patel UR MICRO IND INDICATED Normal [facility] Comment on above: Performed By: #### T SH, LIPID, T4, FT3, CMP #### [facility] [address] [address] [address] Alicia Patel Urobilinogen Qn (U) 0.2 {Wil'U}/dL Normal 0.2 - 1. 0 [facility] Comment on above: Performed By: #### T SH, LIPID, T4, FT3, CMP #### [facility] [address] [address] [address] Alicia Patel Hepatitis B virus surface Ag [Presence] in Serum or Plasma by ImmunoassayOrdered By: Alicia León on 08-11-2022 HBV surface Ag IA Ql Negative Negative [facility] Hepatitis C virus IgG Ab [Pr esence] in Serum or Plasma by ImmunoassayOrdered By: Alicia León on 08-11-2022 HCV IgG IA Ql Non-Reactive Non Reactive [facility] Hepatitis C virus RNA [Units /volume] (viral load) in Serum or Plasma by SAVANNAH with probOrdered By: Alicia León on 08-11-2022 HCV RNA SAVANNAH+probe Qn N/A [facility] Hepatitis C virus RNA [log u nits/volume] (viral load) in Serum or Plasma by SAVANNAH withOrdered By: Alicia León on 08-11-2022 HCV RNA SAVANNAH+probe [Log units/Vol] N/A [facility] Laboratory - CoagulationOrde red By: Hiral Interiano on 08-11-2022 PT Coag (PPP) [Time] 12.2 s 9.0-12.9 [facility] Lymphocytes/100 WBC Manual c nt (Bld)Ordered By: Hiral Interiano on 08-11-2022 Lymphocytes/100 WBC (Bld) 5 % 18-42 [facility] Microcytes LM Ql (Bld)Ordere d By: Hiral Interiano on 08-11-2022 Microcytes Ql (Bld) Slight [facility] Monocytes/100 WBC Manual cnt (Bld)Ordered By: Hiral Interiano on 08-11-2022 Monocytes/100 WBC (Bld) 1 % 2-11 [facility] No Panel InformationOrdered By: Alicia Lenó on 08-11-2022 Hepatitis A IgM Antibody Negative Negative [facility] Hepatitis B Core IgM Antibody Negative Negative [facility] Hepatitis C Interpretation See comment . [facility] Comment on above: Not infected with HC V unless early or acute infection issuspected (which may be delayed in an immunocompromisedindividual), or other evidence exists to indicate HCVinfection.Performed at: [facility] [id number] Director: Lee Bob PhD, Phone: [phone] Hepatitis C RNA Quantitative N/A [facility] POINT OF CARE GLUCOSEon 07-28 Glucose [Mass/Vol] 132 mg/dL Critically high 74-106 [facility] Comment on above: Performed By: #### T SH, LIPID, T4, FT3, CMP #### [facility] [address] [place] [address] Dr. Alicia Patel Glucose [Mass/Vol] 117 mg/dL Critically high -106 [facility] Comment on above: Performed By: #### T SH, LIPID, T4, FT3, CMP #### [facility] [address] [address] [address] Alicia Patel Glucose [Mass/Vol] 95 mg/dL Normal -106 [facility] Comment on above: Performed By: #### P OCGLUC #### [facility] [address] [address] [address] Alicia Patel PROF CHEM 8 (BAS METB)on Anion gap [Moles/Vol] 29.5 mmol/L Normal [facility] Comment on above: Performed By: #### T SH, LIPID, T4, FT3, CMP #### [facility] [address] [place] [address] Dr. Alicia Patel Calcium [Mass/Vol] 7.7 mg/dL Critically low 8.5-10.1 [facility] Comment on above: Performed By: #### T SH, LIPID, T4, FT3, CMP #### [facility] [address] [address] [address] Alicia Patel Chloride [Moles/Vol] 102 mmol/L Normal 98-107 [facility] Comment on above: Performed By: #### T SH, LIPID, T4, FT3, CMP #### [facility] [address] [place] [address] Dr. Alicia Patel CO2 [Moles/Vol] 13.5 mmol/L Critically low 21.0-32.0 [facility] Comment on above: Performed By: #### T SH, LIPID, T4, FT3, CMP #### [facility] [address] [place] [address] Dr. Alicia Patel Creatinine [Mass/Vol] 17.89 mg/dL Critically high 0.70-1.3 0 [facility] Comment on above: Performed By: #### T SH, LIPID, T4, FT3, CMP #### [facility] [address] [place] [address] Dr. Alicia Patel EGFR-AF DOMINICAN 3 mL/min/1.73m2 Critically low >=60 [facility] Comment on above: Performed By: #### T SH, LIPID, T4, FT3, CMP #### [facility] [address] [address] [address] Alicia Patel EGFR-NON AF DOMINICAN 3 mL/min/1.73m2 Critically low >=60 [facility] Comment on above: Performed By: #### T SH, LIPID, T4, FT3, CMP #### [facility] [address] [place] [address] Dr. Alicia Patel Glucose [Mass/Vol] 105 mg/dL Normal 74-106 [facility] Comment on above: Performed By: #### T SH, LIPID, T4, FT3, CMP #### [facility] [address] [address] [address] Alicia Patel Potassium [Moles/Vol] 7.0 mmol/L Critically high 3.5-5.1 [facility] Comment on above: Performed By: #### T SH, LIPID, T4, FT3, CMP #### [facility] [address] [address] [address] Alicai Patel Sodium [Moles/Vol] 138 mmol/L Normal 136-145 [facility] Comment on above: Performed By: #### T SH, LIPID, T4, FT3, CMP #### [facility] [address] [address] [address] Alicia Patel Urea nitrogen [Mass/Vol] 156.0 mg/dL Critically high 7.0-18.0 [facility] Comment on above: Performed By: #### T SH, LIPID, T4, FT3, CMP #### [facility] [address] [address] [address] Alicia Patel Urea nitrogen/Creatinine [Mass ratio] 8.7 mg/mg Normal [facility] Comment on above: Performed By: #### T SH, LIPID, T4, FT3, CMP #### [facility] [address] [address] [address] Alicia Patel Platelet adequacy [Presence] in Blood by Light microscopyOrdered By: Hiral Interiano on 08-11-2022 Platelets LM Ql (Bld) Normal Normal [facility] Platelet morphology finding [Identifier] in BloodOrdered By: iHral Interiano on 08-11-2022 Platelet morphology finding Nom (Bld) Normal Normal [facility] Platelet poor plasma interna tional normalized ratio (INR) by coagulation assay (relatOrdered By: Hiral Interiano on 08-11-2022 INR Coag (PPP) [Relative time] 1.0 {INR} [facility] Comment on above: INR Therapeutic Rang [...] on 08-11-2022 Poikilocytosis LM Ql (Bld) Slight [facility] RBC morphologyOrdered By: Donal Interiano on 08-11-2022 RBC morphology finding Nom (Bld) N/A [facility] Segmented neutrophils/100 WB C Manual cnt (Bld)Ordered By: Hiral Interiano on 08-11-2022 Segmented neutrophils/100 WBC (Bld) 94 % 50-70 [facility] Troponin I.cardiac [Mass/vol ume] in Serum or Plasma by High sensitivity methodOrdered By: Hiral Interiano on 08-11-2022 Troponin I.cardiac High sensitivity method [Mass/Vol] 42 pg/mL 0-20 [facility] URINE MICROSCOPIC ONLYon BACTERIA TRACE Abnormal NONE SEEN [facility] Comment on above: Performed By: #### T SH, LIPID, T4, FT3, CMP #### [facility] [address] [address] [address] Alicia Patel Bacteria identified Cx Nom (U) NOT INDICATED Normal [facility] Comment on above: Performed By: #### T SH, LIPID, T4, FT3, CMP #### [facility] [address] [address] [address] Alicia Patel CAST NONE SEEN Normal NONE SEEN [facility] Comment on above: Performed By: #### T SH, LIPID, T4, FT3, CMP #### [facility] [address] [address] [address] Alicia Patel Crystals LM Nom (Urine sed) NONE SEEN Normal NONE SEEN [facility] Comment on above: Performed By: #### T SH, LIPID, T4, FT3, CMP #### [facility] [address] [address] [address] Alicia Patel Epithelial cells LM Ql (Urine sed) RARE Normal NONE SEEN /RARE [facility] Comment on above: Performed By: #### T SH, LIPID, T4, FT3, CMP #### [facility] [address] [address] [address] Alicia Patel MUCOUS NONE SEEN Normal NONE SEEN [facility] Comment on above: Performed By: #### T SH, LIPID, T4, FT3, CMP #### [facility] [address] [place], [place] [address] Dr. Alicia Patel RBC 2-5 Abnormal 0-2 [facility] Comment on above: Performed By: #### T SH, LIPID, T4, FT3, CMP #### [facility] [address] [place], [place] [address] Dr. Alicia Patel WBC 2-5 Abnormal NONE SEEN [facility] Comment on above: Performed By: #### T SH, LIPID, T4, FT3, CMP #### [facility] [address] [place], [place] [address] Dr. Alicia Patel XR CHEST 1 Von [...] BYERS Date: 2022-08-11 04:27 Normal [facility] Covid-19 PCR (CVDTBH)on SARS-CoV-2 (COVID-19) RNA SAVANNAH+probe Ql (Unsp spec) Not detected Normal NOT DETECTED [facility] Comment on above: Result Comment: This test is not yet approved or cleared by the [place] FDA. When there are no FDA-approved or cleared tests available, and other criteria are met, FDA can make tests available under an emergency access mechanism called an Emergency Use Authorization (EUA). The EUA for this test is supported by the [place] of Health and Human Service's (HHS's) declaration [...] SH, LIPID, T4, FT3, CMP #### [facility] [address] [place] [address] Dr. Alicia Patel INFLUENZA A AND B AGon 08-02 [facility] SEE BELOW Normal [facility] Comment on above: Result Comment: Nega tive for Flu A protein angiten. Infection due to Flu A cannot be ruled out. Flu A angiten in the sample may be below the detection limit of the test. Performed By: #### T SH, LIPID, T4, FT3, CMP #### [facility] [address] [place] [address] Dr. Alicia Patel INFLUBNEG SEE BELOW Normal [facility] Comment on above: Result Comment: Nega tive for Flu B protein antigen. Infection due to Flu B cannot be ruled out. Flu B antigen in the sample may be below the detection limit of the test. Performed By: #### T SH, LIPID, T4, FT3, CMP #### [facility] [address] [place] [address] Dr. Alicia Patel INFLUENZA A AG Negative Normal NEGATIVE SEE COMMENT [facility] Comment on above: Performed By: #### T SH, LIPID, T4, FT3, CMP #### [facility] [address] [place] [address] Dr. Alicia Patel INFLUENZA B AG Negative Normal NEGATIVE SEE COMMENT [facility] Comment on above: Performed By: #### T SH, LIPID, T4, FT3, CMP #### [facility] [address] [place] [address] Dr. Alicia Patel PTH INTACTon 11-29-2022 PTH, Intact 47 pg/mL Normal 15-65 [facility] Comment on above: Performed By: #### T SH, LIPID, T4, FT3, CMP #### [facility] [address] [place] [address] Dr. Alicia Patel ALBUMINon 05-24-2022 Albumin [Mass/Vol] 3.9 g/dL Normal 3.4-5.0 [facility] Comment on above: Performed By: #### T SH, LIPID, T4, FT3, CMP #### [facility] [address] [place] [address] Dr. Alicia Patel HEMOGRAM AND PLATELon 2021 Hematocrit (Bld) [Volume fraction] 42.1 % Normal 42.0-54.0 [facility] Comment on above: Performed By: #### T SH, LIPID, T4, FT3, CMP #### [facility] [address] [place] [address] Dr. Alicia Patel Hemoglobin (Bld) [Mass/Vol] 14.7 g/dL Normal 14.0-18.0 [facility] Comment on above: Performed By: #### T SH, LIPID, T4, FT3, CMP #### [facility] [address] [place] [address] Dr. Alicia Patel MCH (RBC) [Entitic mass] 33.2 pg Normal 25.9-34.0 [facility] Comment on above: Performed By: #### T SH, LIPID, T4, FT3, CMP #### [facility] [address] [place] [address] Dr. Alicia Patel MCHC (RBC) [Mass/Vol] 34.9 g/dL Normal 29.9-35.2 [facility] Comment on above: Performed By: #### T SH, LIPID, T4, FT3, CMP #### [facility] [address] [place] [address] Dr. Alicia Patel MCV (RBC) [Entitic vol] 95.0 fL Critically high 80.0-94.0 [facility] Comment on above: Performed By: #### T SH, LIPID, T4, FT3, CMP #### [facility] [address] [place] [address] Dr. Alicia Patel PLT 190 103/ul Normal 150-450 [facility] Comment on above: Performed By: #### T SH, LIPID, T4, FT3, CMP #### [facility] [address] [place] [address] Dr. Alicia Patel RBC 4.43 106/ul Critically low 4.70-6.10 [facility] Comment on above: Performed By: #### T SH, LIPID, T4, FT3, CMP #### [facility] [address] [place] [address] Dr. Alicia Patel WBC 7.0 103/ul Normal 4.0-11.0 [facility] Comment on above: Performed By: #### T SH, LIPID, T4, FT3, CMP #### [facility] [address] [place] [address] Dr. Alicia Patel MAGNESIUMon 05-24-2022 Magnesium [Mass/Vol] 1.7 mg/dL Critically low 1.8-2.4 [facility] Comment on above: Performed By: #### T SH, LIPID, T4, FT3, CMP #### [facility] [address] [place] [address] Dr. Alicia Patel PHOSPHORUSon 05-24-2022 Phosphate [Mass/Vol] 3.7 mg/dL Normal 2.6-4.7 [facility] Comment on above: Performed By: #### T SH, LIPID, T4, FT3, CMP #### [facility] [address] [place] [address] Dr. Alicia Patel PROF CHEM 8 (BAS METB)on Anion gap [Moles/Vol] 11.2 mmol/L Normal [facility] Comment on above: Performed By: #### U RTPCR #### [facility] [address] [place] [address] Dr. Alicia Patel Calcium [Mass/Vol] 9.1 mg/dL Normal 8.5-10.1 [facility] Comment on above: Performed By: #### U RTPCR #### [facility] [address] [address] [address] Alicia Patel Chloride [Moles/Vol] 104 mmol/L Normal 98-107 [facility] Comment on above: Performed By: #### U RTPCR #### [facility] [address] [address] [address] Alicia Patel CO2 [Moles/Vol] 29.2 mmol/L Normal 21.0-32.0 [facility] Comment on above: Performed By: #### U RTPCR #### [facility] [address] [address] [address] Alicia Patel Creatinine [Mass/Vol] 1.40 mg/dL Critically high 0.70-1.30 [facility] Comment on above: Performed By: #### U RTPCR #### [facility] [address] [address] [address] Alicia Patel EGFR-AF DOMINICAN 59 mL/min/1.73m2 Critically low >=60 [facility] Comment on above: Performed By: #### U RTPCR #### [facility] [address] [address] [address] Alicia Patel EGFR-NON AF DOMINICAN 49 mL/min/1.73m2 Critically low >=60 [facility] Comment on above: Performed By: #### U RTPCR #### [facility] [address] [address] [address] Alicia Patel Glucose [Mass/Vol] 148 mg/dL Critically high 74-106 [facility] Comment on above: Performed By: #### U RTPCR #### [facility] [address] [address] [address] Alicia Patel Potassium [Moles/Vol] 4.4 mmol/L Normal 3.5-5.1 [facility] Comment on above: Performed By: #### U RTPCR #### [facility] [address] [address] [address] Alicia Patel Sodium [Moles/Vol] 140 mmol/L Normal 136-145 [facility] Comment on above: Performed By: #### U RTPCR #### [facility] [address] [place] [address] Dr. Alicia Patel Urea nitrogen [Mass/Vol] 16.0 mg/dL Normal 7.0-18.0 [facility] Comment on above: Performed By: #### U RTPCR #### [facility] [address] [place] [address] Dr. Alicia Patel Urea nitrogen/Creatinine [Mass ratio] 11.4 mg/mg Normal [facility] Comment on above: Performed By: #### U RTPCR #### [facility] [address] [place] [address] Dr. Alicia Patel UA RANDOM W/MICROSCOPICon BACTERIA NONE SEEN Normal NONE SEEN [facility] Comment on above: Performed By: #### T SH, LIPID, T4, FT3, CMP #### [facility] [address] [place] [address] Dr. Alicia Patel Bilirubin Ql (U) Negative Normal NEGATIVE [facility] Comment on above: Performed By: #### T SH, LIPID, T4, FT3, CMP #### [facility] [address] [place] [address] Dr. Alicia Patel CAST NONE SEEN Normal NONE SEEN [facility] Comment on above: Performed By: #### T SH, LIPID, T4, FT3, CMP #### [facility] [address] [place] [address] Dr. Alicia Patel Clarity (U) CLEAR Normal CLEAR [facility] Comment on above: Performed By: #### T SH, LIPID, T4, FT3, CMP #### [facility] [address] [place] [address] Dr. Alicia Patel Color (U) LT. YELLOW Normal YELLOW [facility] Comment on above: Performed By: #### T SH, LIPID, T4, FT3, CMP #### [facility] [address] [place] [address] Dr. Alicia Patel Crystals LM Nom (Urine sed) NONE SEEN Normal NONE SEEN [facility] Comment on above: Performed By: #### T SH, LIPID, T4, FT3, CMP #### [facility] [address] [place] [address] Dr. Alicia Patel Epithelial cells LM Ql (Urine sed) FEW Abnormal NONE SEEN /RARE [facility] Comment on above: Performed By: #### T SH, LIPID, T4, FT3, CMP #### [facility] [address] [place] [address] Dr. Alicia Patel Glucose Ql (U) Negative Normal NEGATIVE [facility] Comment on above: Performed By: #### T SH, LIPID, T4, FT3, CMP #### [facility] [address] [place] [address] Dr. Alicia Patel Hemoglobin Ql (U) Negative Normal NEGATIVE [facility] Comment on above: Performed By: #### T SH, LIPID, T4, FT3, CMP #### [facility] [address] [place] [address] Dr. Alicia Patel Ketones Ql (U) Negative Normal NEGATIVE [facility] Comment on above: Performed By: #### T SH, LIPID, T4, FT3, CMP #### [facility] [address] [place] [address] Dr. Alicia Patel LEUKOCYTES Negative Normal NEGATIVE [facility] Comment on above: Performed By: #### T SH, LIPID, T4, FT3, CMP #### [facility] [address] [place] [address] Dr. Alicia Patel MUCOUS NONE SEEN Normal NONE SEEN [facility] Comment on above: Performed By: #### T SH, LIPID, T4, FT3, CMP #### [facility] [address] [place] [address] Dr. Alicia Patel Nitrite Ql (U) Negative Normal NEGATIVE [facility] Comment on above: Performed By: #### T SH, LIPID, T4, FT3, CMP #### [facility] [address] [place] [address] Dr. Alicia Patel pH (U) 5.5 [pH] Normal 5-9 [facility] Comment on above: Performed By: #### T SH, LIPID, T4, FT3, CMP #### [facility] [address] [place] [address] Dr. Alicia Patel RBC NONE SEEN Abnormal 0-2 [facility] Comment on above: Performed By: #### T SH, LIPID, T4, FT3, CMP #### [facility] [address] [place] [address] Dr. Alicia Patel SPEC GRAVITY 1.020 Normal 1.005-<=1. 025 [facility] Comment on above: Performed By: #### T SH, LIPID, T4, FT3, CMP #### [facility] [address] [place] [address] Dr. Alicia Patel UA PROTEIN Negative Normal NEGATIVE/ TRACE [facility] Comment on above: Performed By: #### T SH, LIPID, T4, FT3, CMP #### [facility] [address] [place] [address] Dr. Alicia Patel Urobilinogen Qn (U) 0.2 {Wil'U}/dL Normal 0.2 - 1. 0 [facility] Comment on above: Performed By: #### T SH, LIPID, T4, FT3, CMP #### [facility] [address] [place] [address] Dr. Alicia Patel WBC NONE SEEN Normal NONE SEEN [facility] Comment on above: Performed By: #### T SH, LIPID, T4, FT3, CMP #### [facility] [address] [place] [address] Dr. Alicia Patel URIC ACID SERUMon 05-24-2022 Urate [Mass/Vol] 5.6 mg/dL Normal 3.5-7.2 [facility] Comment on above: Performed By: #### T SH, LIPID, T4, FT3, CMP #### [facility] [address] [place] [address] Dr. Alicia Patel URINE T PROTEIN CREAT RATIOo n 05-24-2022 Protein (U) [Mass/Vol] 26.0 mg/dL Critically high <=12.0 [facility] Comment on above: Performed By: #### T SH, LIPID, T4, FT3, CMP #### [facility] [address] [place] [address] Dr. Alicia Patel UR PROT CREAT RAT 0.34 Normal [facility] Comment on above: Performed By: #### T SH, LIPID, T4, FT3, CMP #### [facility] [address] [place], [place] [address] Dr. Alicia Patel URINE CREAT 77.39 mg/dL Normal 20.00-300. 00 [facility] Comment on above: Performed By: #### T SH, LIPID, T4, FT3, CMP #### [facility] [address] [place], [place] [address] Dr. Alicia Patel Vital Signs Date Time Vital Sign Value Performing Clinician Facility 06-12-2024 11:27-0500 Blood Pressure Location [facility] 06-12-2024 11:27-0500 Diastolic blood pressure 70 mm[Hg] [facility] 06-12-2024 11:27-0500 Heart rate 62 /min [facility] 06-12-2024 11:27-0500 Systolic blood pressure 145 mm[Hg] [facility] 12-20-2023 11:49-0400 Body height 175.26 cm MD Jose Alfaro Work Phone: [facility] 12-20-2023 11:49-0400 Body mass index (BMI) [Ratio] 39.4 kg/m2 MD Jose Alfaro Work Phone: [facility] 12-20-2023 11:49-0400 Body temperature 96.5 [degF] MD Jose Alfaro Work Phone: [facility] 12-20-2023 11:49-0400 Body weight 121.33 kg MD Jose Alfaro Work Phone: [facility] 12-20-2023 11:49-0400 Diastolic blood pressure 74 mm[Hg] MD Jose Alfaro Work Phone: [facility] 12-20-2023 11:49-0400 Heart rate 83 /min MD Jose Alfaro Work Phone: [facility] 12-20-2023 11:49-0400 Respiratory rate 20 /min MD Jose Alfaro Work Phone: [facility] 12-20-2023 11:49-0400 SaO2% (BldA) [Mass fraction] 94 % MD Jose Alfaro Work Phone: [facility] 12-20-2023 11:49-0400 Systolic blood pressure 135 mm[Hg] MD Jose Alfaro Work Phone: [facility] 06-14-2023 11:00-0500 Body height 175.26 cm Alicia Brit Other [facility] Other 06-14-2023 11:00-0500 Body mass index (BMI) [Ratio] 38.51 kg/m2 Alicia Brit Other [facility] Other 06-14-2023 11:00-0500 Body temperature 97.2 [degF] Alicia Brit Other [facility] Other 06-14-2023 11:00-0500 Body weight 118.3 kg Alicia Brit Other [facility] Other 06-14-2023 11:00-0500 Diastolic blood pressure 72 mm[Hg] Alicia Brit Other [facility] Other 06-14-2023 11:00-0500 Respiratory rate 18 /min Alicia Brit Other [facility] Other 06-14-2023 11:00-0500 SaO2% (BldA) [Mass fraction] 95 % Alicia Brit Other [facility] Other 06-14-2023 11:00-0500 Systolic blood pressure 122 mm[Hg] Alicia Brit Other [facility] Other 11-29-2022 10:20-0400 Body height 175.26 cm Alicia Brit Other [facility] Other 11-29-2022 10:20-0400 Body mass index (BMI) [Ratio] 36.77 kg/m2 Alicia Brit Other [facility] Other 11-29-2022 10:20-0400 Body temperature 96.3 [degF] Alicia Brit Other [facility] Other 11-29-2022 10:20-0400 Body weight 112.95 kg Ailcia Brit Other [facility] Other 11-29-2022 10:20-0400 Diastolic blood pressure 72 mm[Hg] Alicia Brit Other [facility] Other 11-29-2022 10:20-0400 Respiratory rate 18 /min Alicia Brit Other [facility] Other 11-29-2022 10:20-0400 SaO2% (BldA) [Mass fraction] 96 % Alicia Brit Other [facility] Other 11-29-2022 10:20-0400 Systolic blood pressure 137 mm[Hg] Alicia Brit Other [facility] Other 10-07-2022 17:25-0400 Heart rate 66 /min [facility] 10-07-2022 17:25-0400 SaO2% (BldA) [Mass fraction] 92 % [facility] 10-07-2022 17:25-0400 Respiratory rate 16 /min [facility] 10-07-2022 17:24-0400 Body temperature 97.7 [degF] [facility] 10-07-2022 17:24-0400 Diastolic blood pressure 74 mm[Hg] [facility] 10-07-2022 17:24-0400 Mean blood pressure 106 mm[Hg] [facility] 10-07-2022 17:24-0400 Systolic blood pressure 170 mm[Hg] Ni [facility] 10-07-2022 16:18-0400 Heart rate 61 /min [facility] 10-07-2022 16:18-0400 SaO2% (BldA) [Mass fraction] 95 % [facility] 10-07-2022 16:17-0400 Diastolic blood pressure 81 mm[Hg] [facility] 10-07-2022 16:17-0400 Mean blood pressure 103 mm[Hg] [facility] 10-07-2022 16:17-0400 Systolic blood pressure 148 mm[Hg] [facility] 10-07-2022 16:17-0400 Respiratory rate 16 /min [facility] 10-07-2022 16:11-0400 Diastolic blood pressure 75 mm[Hg] [facility] 10-07-2022 16:11-0400 Heart rate 58 /min [facility] 10-07-2022 16:11-0400 Mean blood pressure 98 mm[Hg] [facility] 10-07-2022 16:11-0400 Respiratory rate 17 /min [facility] 10-07-2022 16:11-0400 SaO2% (BldA) [Mass fraction] 97 % [facility] 10-07-2022 16:11-0400 Systolic blood pressure 144 mm[Hg] [facility] 10-07-2022 16:00-0400 Mean blood pressure 92 mm[Hg] [facility] 10-07-2022 16:00-0400 Respiratory rate 13 /min [facility] 10-07-2022 15:55-0400 Mean blood pressure 86 mm[Hg] [facility] 10-07-2022 15:55-0400 Respiratory rate 17 /min [facility] 10-07-2022 15:46-0400 Body temperature 98.06 [degF] [facility] 10-07-2022 15:40-0400 Respiratory rate 15 /min [facility] 10-07-2022 10:14-0400 Mean blood pressure 97 mm[Hg] [facility] 10-07-2022 10:14-0400 Blood Pressure Location Ni OLIVARES [facility] 10-07-2022 10:13-0400 Heart rate 64 /min Ni OLIVARES [facility] 10-07-2022 10:12-0400 Body temperature 98.06 [degF] Ni OLIVARES [facility] 10-07-2022 10:12-0400 Blood Pressure Location Ni OLIVARES [facility] 09-15-2022 14:40-0400 Body height 175.26 cm Alicia Brit Other [facility] Other 09-15-2022 14:40-0400 Body mass index (BMI) [Ratio] 37.48 kg/m2 Alicia Brit Other [facility] Other 09-15-2022 14:40-0400 Body weight 115.12 kg Alicia Brit Other [facility] Other 09-15-2022 14:40-0400 Diastolic blood pressure 73 mm[Hg] Alicia Brit Other [facility] Other 09-15-2022 14:40-0400 Respiratory rate 18 /min Alicia Brit Other [facility] Other 09-15-2022 14:40-0400 SaO2% (BldA) [Mass fraction] 97 % Alicia Brit Other [facility] Other 09-15-2022 14:40-0400 Systolic blood pressure 138 mm[Hg] Alicia León Other [facility] Other 09-06-2022 10:01-0400 Blood Pressure Location Ni OLIVARES [facility] 09-06-2022 10:01-0400 Diastolic blood pressure 70 mm[Hg] Ni OLIVARES [facility] 09-06-2022 10:01-0400 Heart rate 68 /min Ni OLIVARES [facility] 09-06-2022 10:01-0400 Systolic blood pressure 132 mm[Hg] Ni OLIVARES [facility] 08-15-2022 12:16-0500 Body temperature 97.8 [degF] MD Jose Alfaro Work Phone: [facility] 08-15-2022 12:16-0500 Diastolic blood pressure 92 mm[Hg] MD Jose Alfaro Work Phone: [facility] 08-15-2022 12:16-0500 Heart rate 68 /min MD Jose Alfaro Work Phone: [facility] 08-15-2022 12:16-0500 Respiratory rate 18 /min MD Jose Alfaro Work Phone: [facility] 08-15-2022 12:16-0500 SaO2% (BldA) [Mass fraction] 95 % MD Jose Alfaro Work Phone: [facility] 08-15-2022 12:16-0500 Systolic blood pressure 146 mm[Hg] MD Jose Alfaro Work Phone: [facility] 08-15-2022 05:08-0500 Body weight 118.2 kg MD Jose Alfaro Work Phone: [facility] 08-13-2022 13:10-0500 Inhaled oxygen flow rate 8 L/min MD Jose Alfaro Work Phone: [facility] 08-13-2022 11:54-0500 Body height 177.8 cm MD Jose Alfaro Work Phone: [facility] 08-13-2022 11:54-0500 Body mass index (BMI) [Ratio] 37.3 kg/m2 MD Jose Alfaro Work Phone: [facility] 06-01-2022 11:40-0500 Body height 175.26 cm Alicia Brit Other [facility] Other 06-01-2022 11:40-0500 Body mass index (BMI) [Ratio] 37.77 kg/m2 Alicia Brit Other [facility] Other 06-01-2022 11:40-0500 Body temperature 97.5 [degF] Alicia Brit Other [facility] Other 06-01-2022 11:40-0500 Body weight 116.03 kg Alicia Brit Other [facility] Other 06-01-2022 11:40-0500 Diastolic blood pressure 71 mm[Hg] Alicia Brit Other [facility] Other 06-01-2022 11:40-0500 Respiratory rate 18 /min Alicia Brit Other [facility] Other 06-01-2022 11:40-0500 SaO2% (BldA) [Mass fraction] 93 % Alicia Brit Other [facility] Other 06-01-2022 11:40-0500 Systolic blood pressure 134 mm[Hg] Alicia Brit Other [facility] Other 11-24-2021 11:20-0400 Body height 175.26 cm Alicia Brit Other [facility] Other 11-24-2021 11:20-0400 Body mass index (BMI) [Ratio] 36.26 kg/m2 Alicia Brit Other [facility] Other 11-24-2021 11:20-0400 Body temperature 96.4 [degF] Alicia Brit Other [facility] Other 11-24-2021 11:20-0400 Body weight 111.4 kg Alicia Brit Other [facility] Other 11-24-2021 11:20-0400 Diastolic blood pressure 72 mm[Hg] Alicia Brit Other [facility] Other 11-24-2021 11:20-0400 Respiratory rate 18 /min Alicia Brit Other [facility] Other 11-24-2021 11:20-0400 SaO2% (BldA) [Mass fraction] 95 % Alicia Brit Other [facility] Other 11-24-2021 11:20-0400 Systolic blood pressure 139 mm[Hg] Alicia Brit Other [facility] Other 10-26-2021 09:17-0400 Blood Pressure Location Milton KADE [facility] 10-26-2021 09:17-0400 Diastolic blood pressure 69 mm[Hg] Milton BRAUN [facility] 10-26-2021 09:17-0400 Heart rate 64 /min Milton BRAUN [facility] 10-26-2021 09:17-0400 Respiratory rate 16 /min Milton BRAUN [facility] 10-26-2021 09:17-0400 Systolic blood pressure 139 mm[Hg] Milton BRAUN [facility] 05-26-2021 11:00-0500 Body height 175.26 cm Alicia Brit Other [facility] Other 05-26-2021 11:00-0500 Body mass index (BMI) [Ratio] 34.4 kg/m2 Alicia Brit Other [facility] Other 05-26-2021 11:00-0500 Body temperature 96.9 [degF] Alicia Brit Other [facility] Other 05-26-2021 11:00-0500 Body weight 105.69 kg Alicia Brit Other [facility] Other 05-26-2021 11:00-0500 Diastolic blood pressure 80 mm[Hg] Alicia Brit Other [facility] Other 05-26-2021 11:00-0500 Respiratory rate 18 /min Alicia Brit Other [facility] Other 05-26-2021 11:00-0500 SaO2% (BldA) [Mass fraction] 94 % Alicia Brit Other [facility] Other 05-26-2021 11:00-0500 Systolic blood pressure 136 mm[Hg] Alicia Brit Other [facility] Other Encounters Encounter Date Encounter Type Care Provider Facility Start: 12-10-2024 ambulatory Ni OLIVARES Facility :[facility] Start: 06-12-2024 End: 06-12-2024 ambulatory Ni OLIVARES Facility: [place] Start: 06-12-2024 End: 06-12-2024 Patient encounter procedure Ni OLIVARES [facility] [place] Start: 05-21-2024 End: 05-21-2024 ambulatory [facility] Start: 12-20-2023 End: 12-20-2023 ambulatory MD Jose Alfaro Work Phone: [facility] Work Phone: Start: 12-20-2023 End: 12-20-2023 Patient encounter procedure MD Jose Alfaro Work Phone: [facility] Physician [facility] Neph[facility] Work Phone: Start: 12-14-2023 Non-patient / Non-visit MD Annalisa Alfaro Work Phone: [facility] Physician [facility] Work Phone: Start: 11-01-2023 End: 11-01-2023 ambulatory [facility] Start: 10-26-2023 End: 10-26-2023 ambulatory JENNIFER DRISCOLL Not Available Start: 10-18-2023 End: 10-18-2023 ambulatory MD Jose Alfaro Work Phone: [facility] Work Phone: Start: 10-18-2023 End: 10-18-2023 Departed Referred MD Jose Alfaro Work Phone: [facility] Start: 09-12-2023 End: 09-12-2023 ambulatory JENNIFER CEJAETT Not Available Start: 08-23-2023 End: 08-23-2023 ambulatory [facility] Start: 07-02-2023 End: 07-02-2023 Patient encounter procedure MD Jose Alfaro Work Phone: [facility] [place] Work Phone: Start: 07-02-2023 End: 07-02-2023 ambulatory MD Jose Alfaro Work Phone: [facility] Work Phone: Start: 06-28-2023 End: 06-28-2023 Patient encounter procedure MD Jose Alfaro Work Phone: [facility] [place] Work Phone: Start: 06-28-2023 End: 06-28-2023 ambulatory MD Jose Alfaro Work Phone: [facility] Work Phone: Start: 06-16-2023 End: 06-16-2023 Patient encounter procedure MD Jose Alfaro Work Phone: [facility]Ultrasound [facility] [place] Work Phone: Start: 06-16-2023 End: 06-16-2023 ambulatory MD Jose Alfaro Work Phone: [facility] Work Phone: Start: 06-14-2023 End: 06-14-2023 ambulatory Alicia León Other [facility] Other Start: 06-14-2023 Office outpatient vi sit 25 minutes Alicia Brit [facility] Start: 06-14-2023 End: 06-14-2023 Patient encounter procedure Ni OLIVARES [facility] [place] Start: 12-20-2022 End: 12-20-2022 Patient encounter procedure Ni OILVARES [facility] Start: 11-29-2022 End: 11-29-2022 ambulatory Alicia Brit Other [facility] Other Start: 11-29-2022 Office outpatient vi sit 25 minutes Alicia Brit [facility] Start: 11-10-2022 End: 11-24-[address] JOSE ALFARO . Facility:[facility] Start: 11-08-2022 End: 11-08-[address] JOSE ALFARO . Facility:[facility] Start: 11-06-2022 End: 11-07-[address] JOSE ALFARO . Facility:[facility] Start: 10-29-2022 End: 10-29-2022 Patient encounter procedure Milton BRAUN [facility] Start: 10-26-2022 End: 10-27-2022 ambulatory IRIS CORONEL Facility:[facility] Start: 10-22-2022 End: 10-23-[address] MILTON BRAUN . Facility:[facility] Start: 10-15-2022 End: 10-16-[address] JOSE ALFARO . Facility:[facility] Start: 10-14-2022 End: 10-15-2022 ambulatory IRIS CORONEL Facility:[facility] Start: 10-07-2022 End: 10-07-2022 Admission to same day surgery center Ni OLIVARES [facility] Start: 09-15-2022 End: 09-15-2022 ambulatory Alicia Brit Other [facility] Other Start: 09-15-2022 Office outpatient vi sit 25 minutes Alicia Brit [facility] Start: 09-14-2022 ambulatory Facility:1 [id number] Start: 09-13-2022 End: 09-14-2022 ambulatory ALICIA BRIT Facility:[facility] Start: 09-06-2022 End: 09-06-2022 Patient encounter procedure Ni OLIVARES [facility] Start: 09-01-2022 End: 09-02-[address] NI OLIVARES Facility:[facility] Start: 08-24-2022 End: 08-25-[address] JOSE ALFARO . Facility:[facility] Start: 08-22-2022 End: 08-22-[address] JOSE ALFARO . Facility:[facility] Start: 08-21-2022 End: 08-22-[address] JOSE ALFARO . Facility:[facility] Start: 08-18-2022 End: 08-19-2022 ambulatory ALICIA BRIT Facility:[facility] Start: 08-11-2022 ambulatory Facility:[facility] Start: 08-11-2022 Patient encounter status MD Iglesias Work Phone: [facility] Start: 08-11-2022 End: 08-15-2022 Encounter for preprocedural cardiovascular examination MD Jose Alfaro Work Phone: [facility] Start: 08-11-2022 End: 08-15-2022 Evaluation and management of inpatient MD Jose Alfaro Work Phone: [facility] Work Phone: Start: 08-11-2022 End: 08-11-2022 ambulatory THADDEUS DAUGHERTY Facility:[facility] Start: 08-02-2022 End: 08-02-[address] JOSE ALFARO . Facility:[facility] Start: 07-08-2022 End: 07-23-[address] JOSE ALFARO . Facility:[facility] Start: 06-01-2022 End: 06-01-2022 ambulatory Alicia Brit Other [facility] Other Start: 06-01-2022 Office outpatient vi sit 25 minutes Alicia Brit [facility] Start: 05-24-2022 End: 05-25-2022 ambulatory ALICIA BRIT Facility:[facility] Start: 02-03-2022 End: 02-04-[address] JOSE ALFARO . Facility:[facility] Start: 11-24-2021 End: 11-24-2021 ambulatory Alicia Brit Other [facility] Other Start: 11-24-2021 Office outpatient vi sit 25 minutes Alicia Brit [facility] Start: 10-26-2021 End: 10-26-2021 Patient encounter procedure Milton BRAUN [facility] Start: 05-26-2021 End: 05-26-2021 ambulatory Alicia Brit Other [facility] Other Start: 05-26-2021 Office outpatient vi sit [...] SH, LIPID, T4, FT3, CMP #### [facility] [address] [place] [address] Dr. Alicia Patel Start: 10-07-2022 Extracorporeal shock wave lithotripsy of calculus of kidney Ni OLIVARES Start: 08-21-2022 PSA screening BEN DEVRIES Comment on above: Performed By: #### P SAD #### [facility] [address] [address] [address] Alicia Patel Start: 08-13-2022 Cystoscopy MD Jose Alfaro Work Phone: Start: 08-11-2022 Plain chest X-ray MD Iglesias Work Phone: Start: 08-01-2019 Transurethral prostatectomy Milton BRAUN Start: 07-04-2019 Biopsy of prostate Patr humaira BRAUN Start: 06-27-2019 cystoscopy, bilatera l, ureteroscopy, laser lithotripsy Milton BRAUN ear surgery Milton BRAUN ear surgery Ni OLIVARES Plan of Treatment Date Care Activity Detail Author Start: 08-15-2022 [facility] Start: 08-14-2022 Microbial culture of sputum [facility] Start: 08-14-2022 Aerobic Culture Aerobic Culture [facility] Start: 08-14-2022 Investigation of tra nsfusion reaction Gram Stain [facility] Start: 08-11-2022 Hospital admission [facility] Start: 08-11-2022 Referral to parer [facility] Start: 08-11-2022 Referral to screen machine operator [facility] Start: 08-11-2022 Referral to urologist [facility] CT Chest WO contrast [facility] Patient referral [facility] Work Phone: Renal function 1999 panel - Serum or Plasma [facility] Renal function 1999 panel - Serum or Plasma [facility] Immunizations Immunization Date Immunization Notes Care Provider Fa cility 03-06-2024 influenza virus vaccine, unspecified formulation Ni OLIVARES [facility] 05-02-2023 pneumococcal 20-marco nt conjugate vaccine Ni OLIVARES [facility] 05-02-2023 tetanus toxoid, redu martha diphtheria toxoid, and acellular pertussis vaccine, adsorbed Ni OLIVARES [facility] 03-29-2022 SARS-CoV-2 (COVID-19 ) [id number] Ni OLIVARES [facility] 05-18-2021 SARS-CoV-2 (COVID-19 ) Ad26 vaccine, recombinant Ni OLIVARES [facility] 03-30-2021 influenza virus vaccine, unspecified formulation Ni OLIVARES [facility] 09-01-2020 SARS-CoV-2 (COVID-19 ) Ad26 vaccine, recombinant Ni OLIVARES [facility] 06-27-2020 SARS-CoV-2 (COVID-19 ) Ad26 vaccine, recombinant Milton BRAUN [facility] 04-18-2020 influenza virus vaccine, unspecified formulation Ni OLIVARES [facility] 02-05-2020 zoster vaccine recombinant Ni OLIVARES [facility] 12-06-2019 zoster vaccine recombinant Ni OLIVARES [facility] 04-04-2019 influenza virus vaccine, unspecified formulation Milton BRAUN [facility] 04-05-2017 influenza virus vaccine, unspecified formulation Ni OLIVARES [facility] 04-05-2017 pneumococcal conjuga te vaccine, 13 valent Ni OLIVARES [facility] 04-12-2016 influenza, unspecifi ed formulation Ni OLIVARES [facility] Payers Date Payer Category Payer Self-pay [id number] 1959 Private Health Insurance [id number] 1959 Private Health Insurance [id number] 1942 Unknown [id number] 2.16.840.1.449443.3.579.2.356 1942 Unknown [id number] 2.16.840.1.839219.3.579.2.593 1942 Unknown [id number] 2.16.840.1.330691.3.579.2.593 1942 Unknown [id number] 2.16.840.1.561362.3.579.2.593 1942 Unknown [id number] 2.16.840.1.777101.3.579.2.593 1942 Unknown [id number] 2.16.840.1.177897.3.579.2.593 1942 Unknown [id number] 2.16.840.1.561950.3.579.2.593 1942 Unknown [id number] 2.16.840.1.397895.3.579.2.593 1942 Unknown [id number] 2.16.840.1.477212.3.579.2.593 1942 Unknown [id number] 2.16.840.1.173121.3.579.2.593 1942 Unknown [id number] 2.16.840.1.095202.3.579.2.593 1942 Unknown [id number] 2.16.840.1.827021.3.579.2.593 1942 Unknown [id number] 2.16.840.1.304833.3.579.2.593 1942 Unknown [id number] 2.16.840.1.240733.3.579.2.593 1942 Unknown [id number] 2.16.840.1.351085.3.579.2.593 1942 Unknown [id number] 2.16.840.1.204324.3.579.2.593 1942 Unknown [id number] 2.16.840.1.674808.3.579.2.593 1942 Unknown [id number] 2.16.840.1.725565.3.579.2.593 1942 Unknown [id number] 2.16.840.1.678773.3.579.2.593 1942 Unknown [id number] 2.16.840.1.047746.3.579.2.593 1942 Unknown [id number] 2.16.840.1.717253.3.579.2.1259 1942 Unknown [id number] 2.16.840.1.304878.3.579.2.1259 1942 Unknown [id number] 2.16.840.1.261843.3.579.2.727 1942 Unknown [id number] 2.16.840.1.067988.3.579.2.727 Medicare [id number] 2.16.8 40.1.261316.19 Medicare Medicare [id number] Medicare [id number] 2.1 6.840.1.993843.19 Unknown Hussein BC/BS [id number] Unknown [id number] 2.16.840.1.584534.3.579.2.531 Unknown [id number] 2.16.840.1.259398.3.579.2.531 Unknown [id number] 2.16.840.1.595483.3.579.2.531 Unknown [id number] 2.16.840.1.894417.3.579.2.531 Social History Date Type Detail Facility Start: 08-18-2020 End: 06-12-2024 Tobacco smoking status Ex-smoker (finding) [facility] Other Comment on above: quit in 1978 Sex Assigned At Male [facility] Other Start: 1940 Sex Assigned At Male [facility] Tobacco smoking status Never [facility] Comment on above: quit in 1978 Medical Equipment Procedure Code Equipment Code Equipment Origin al Text Equipment Identifier Dates Cystoscopy, with ureteral calculus manipulation and stent placement Polymeric ureteral stent [id number] FDA Start: 06-15-2019 Cystoscopy, with ureteral calculus manipulation and stent placement Polymeric ureteral stent ()[id number] FDA Start: 06-15-2019 Cystoscopy, with ureteral calculus manipulation and stent placement Polymeric ureteral stent ()[id number] FDA Start: 02-17-2023 Biopsy, prostate, with US guidance Polymeric ureteral stent ()[id number] FDA Start: 07-04-2019 CYSTOSCOPY URETEROSCOPY Ni OLIVARES MD 12/02/22 Unknown Ureter R {[id number] FDA Start: 12-02-2022 Goals Date Patient Goal Desired Activity /State Functional Status Date Assessment Result Facility 06-12-2024 Functional Status N/A [facility] 12-20-2022 Functional Status N/A [facility] 09-06-2022 Functional Status N/A [facility] 08-15-2022 Functional status Patient at Baseline [facility] Work Phone: Mental Status Date Assessment Result Facility 08-15-2022 Cognitive function Cognitive Sta tus Patient at Baseline [facility] Work Phone: Clinical Notes [...] include: ?8 oz (237 mL) of milk, mrigtbr-pnilsjjkpxou-luuia milk, and calcium-fortifiedfruit juice. Calcium-fortified means that [...] ?Spinach (cooked), rhubarb, beets, sweet potatoes, and Palauan chard. ?Peanuts. ?Potato chips, ghanaian fries, and baked potatoes with skin on. ?Nuts and nut products. ?Chocolate. If you regularly take a diuretic medicine, make sure to eat at least 1 or 2 servings of fruits or vegetables that are high in potassium each day. These include: ?Avocado. ?Banana. ?Box Elder, prune, carrot, or tomato juice. ?Baked potato. [...] magnesium, fish oil, or vitamin B6. Take bcoa-osn-qtwmjrj and prescription medicines only as told by [...] Casseroles. Pizza. Lasagna. Frozen meals. Potato chips. Dominican fries. The items listed above may not [...] provider. Document Revised: 09/23/2022 Document Reviewed: 09/23/2022 [employer] Patient Education 2023 [employer]. Follow Up Care 06/14/2023 09:52:06 With:CARLOS OLIVEROS, Ni Garcia, URL Address: [address] [place] [address]- When: Unknown [facility] 06-12-2024 Note Patient Education Nephrology [...] ? 8 oz (237 mL) of milk, qmrgcis-fapjqhrctoor-kxyvg milk, and calcium-fortifiedfruit juice. Calcium-fortified means that [...] Spinach (cooked), rhubarb, beets, sweet potatoes, and Palauan chard. ? Peanuts. ? Potato chips, ghanaian fries, and baked potatoes with skin on. ? Nuts and nut products. ? Chocolate. ??? If you regularly take a diuretic medicine, make sure to eat at least 1 or 2 servings of fruits or vegetables that are high in potassium each day. These include: ? Avocado. ? Banana. ? Box Elder, prune, carrot, or tomato juice. ? Baked [...] fish oil, or vitamin B6. ??? Take xslc-cpc-cqehkxw and prescription medicines only as told by your health (more content not included)... [facility] 05-21-2024 Note [facility] Cardiology - [facility] Subjective Victorino Smyth is a 83 [...] Use Topics Alcohol use: Yes Comment: socially HPI Victorino is seen for follow up. He is an 83 yo man with prior history of CAD and drug eluting stenting of LAD in March of 2013, and then developed acute NH related to ISR of the LAD stent on 09/28/2016 and underwent emergent Promus JOSE RAMON stent to the LAD at [facility], was on Brilinta but currently [...] Allergies All (more content not included)... [facility] 11-01-2023 Note Patient here for 3 m [...] other systems reviewed and are negative. [facility] 11-01-2023 Note Cardiovascular Medic [facility] SUBJECTIVE Chief Complaint Patient presents with [...] JOSE RAMON stent to the LAD at [facility], was on Brilinta but currently [...] Edema present. (more content not included)... [facility] 08-23-2023 Note Cardiovascular Medic [facility] SUBJECTIVE No chief complaint on file. Victorino Smyth is a 83 y.o. male here for follow-up. Patient here for 6 mo follow up CAD, hypertension, and hyperlipidemia. He was discharged from [facility] a few weeks ago for Covid-19. Feels much better and is still regaining his strength. Denies chest pain, palpitations, and lightheadedness/syncope. HPI PMHx: CAD, HLD, HTN -CAD and drug eluting stenting of LAD in March of 2013, and then developed acute NH related to ISR of the LAD stent on 09/28/2016 and underwent emergent Promus JOSE RAMON stent to the LAD at [facility], was on Brilinta but currently [...] Rate an (more content not included)... [facility] 08-23-2023 Note Patient here for 6 m o follow up CAD, hypertension, and hyperlipidemia. He was discharged from [facility] [facility] a few weeks ago for Covid-19. Feels much better and is still regaining his strength. Denies chest pain, palpitations, and lightheadedness/syncope. Patient states his BP in the mornings before medications has been running around 100/55. Review of Systems Cardiovascular: Positive for dyspnea on exertion. Musculoskeletal: Positive for arthritis, back pain and joint pain. All other systems reviewed and are negative. 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 [facility] Other 12-19-2023 Hospital Discharge instructions Patient Education [...] include: ?8 oz (237 mL) of milk, evafpub-vcqvwypsoqco-omwdu milk, and calcium- fortifiedfruit juice. Calcium-fortified means [...] ?Spinach (cooked), rhubarb, beets, sweet potatoes, and Palauan chard. ?Peanuts. ?Potato chips, ghanaian fries, and baked potatoes with skin on. ?Nuts and nut products. ?Chocolate. If you regularly take a diuretic medicine, make sure to eat at least 1 or 2 servings of fruits or vegetables that are high in potassium each day. These include: ?Avocado. ?Banana. ?Box Elder, prune, carrot, or tomato juice. ?Baked potato. [...] magnesium, fish oil, or vitamin B6. Take pqbg-jwi-tvqsbqe and prescription medicines only as told by [...] Casseroles. Pizza. Lasagna. Frozen meals. Potato chips. Dominican fries. The items listed above may not [...] provider. Document Revised: 09/23/2022 Document Reviewed: 09/23/2022 [employer] Patient Education 2022 [employer]. Follow Up Care 02/04/2023 14:47:08 With:CARLOS OLIVEROS, Ni Garcia, URL Address: [address] [place], [place] [address]- When: Unknown [facility] [id number] Hospital Discharge instructions Patient Education 12/20/2022 16:27:08 [...] Care 12/07/2022 13:42:13 With:Ni OLIVARES Address: [address] [place], [place] [id number] [facility] (1) When:6 months Comments:Call for followup [...] those arrangements as well.Have a great day. [facility]06-05-2023 Evaluation note* Encounter Date Diagnosis Assessment Notes Treatment Notes Treatment Clinical Notes Nov, Diabetes mellitus wi th chronic kidney disease (ICD-10 - E11.22) He has ycl-vvacovr-xnts ndent type 2 diabetes and currently takes [...] and has normal B12 and folate level. [facility] Other 04-13-2023 Hospital Discharge instructions Patient Education [...] Follow these instructions at home: Medicines Take bofw-lps-sikwzgc and prescription medicines only as told by [...] 07/02/2008 Document Revised: 09/24/2019 Document Reviewed: 05/04/2017 [employer] Patient Education 2020 [employer]. Follow Up Care 09/06/2022 10:38:13 With:Ni OLIVARES Address: [address] [id number] [facility] (1) When: Unknown Comments:We were able to [...] prior to considering any other anesthesia procedures. [facility]04-13-2023 Evaluation + Plan noteExtracted from: Title:CSB post op Author:Timothy Pittman MD Date:10/07/22 Plan Transfer/Discharge: Transfer/Discharge Discharge when meets criteria ( To home ). Extracted from: Title:[place]ALEN [place] Author:Timothy Pittman MD Date:10/07/22 Plan [employer] [employer] (ASA) physical status classification: Class III. Anesthetic Preoperative Plan: Anesthesia General. Future Appointments Appointment Date:10/29/2022 08:45:00 AM Scheduled Provider:Milton BRAUN MD Location:[facility] Appointment Type:URO Office Visit [facility]03-22-2023 Evaluation note* Encounter Date Diagnosis Assessment Notes Treatment Notes Treatment Clinical Notes Aug, Diabetes mellitus wi th chronic kidney disease (ICD-10 - E11.22) He has mwx-njzettg-sqra ndent type 2 diabetes and currently takes [...] have advised him to adequately hydrate himself. [facility] Other 03-13-2023 Hospital Discharge instructions Patient Education 09/06/2022 10:27:16 Kidney Stones, Dctk-va-Dbld Kidney Stones Kidney stones are rock-like masses [...] Follow these instructions at home: Medicines Take ptmg-hza-kxibyzf and prescription medicines only as told by [...] 11/29/2008 Document Revised: 10/30/2019 Document Reviewed: 10/30/2019 [employer] Patient Education 2019 [employer]. Follow Up Care 08/17/2022 09:18:37 With:CARLOS OLIVEROS, Ni Garcia, URL Address: [facility] [email or web address] [place], [place] [id number]- When: Unknown [facility] [id number] Discharge summary Author Hiral Interaino [facility] August 15, 2022 1:50pm Note Date/Time August 15, 2022 1:50pm [facility] [address] [place] [address] Discharge Summary Signed Patient: Victorino Smyth MR#: [id number] : 1940 Acct:[id number] Age/Sex: 82 / M Adm Date: 3 Loc: Room: [address] [place] [address]: Hiral Interiano MD Copies to: [...] of nephrolithiasis. He initially presented to [facility] ER with complaint of hypoglycemia and was found to have severe renal failure along with metabolic acidosis and hyperkalemia. CT scan at [place] ER showed atrophic left kidney with obstructing stone in the right ureteropelvic junction. Patient was transferred to [facility] for further intervention. On arrival is [...] is also advised to follow-up with his parer in 4-week. CT scan at [place] ER also showed 0.8 cm nodule on [...] Low-Cholesterol Additional Instructions: Follow-up with your Primary Test Inspection Engineer in 4 weeks. Avoid NSAIDs for pain [...] office on Tuesday to schedule follow-up with Store Team Member. ) Documented By: Hiral Interiano MD 08/15/22 5369 Signed By: <Electronically signed by Hiral Interiano MD> 08/15/22 8526 [facility] Work Phone: 1(252) 982-697402-19-2023 Progress note Author Alicia León [facility] August 15, 2022 12:01pm Note Date/Time August 15, 2022 12:01pm [facility] [address] [place] [address] Nephrology Progress Note Signed Patient: Victorino Smyth MR#: [id number] : 1940 Acct:[id number] Age/Sex: 82 / M Adm Date: 3 Loc: 4N Room: [address] [place] [address] Type: ADM IN Attending Dr: Hiral Interiano MD Copies to: ~ Date of Service: 08/15/2022 Subjective Subjective Narrative: This is a 82-year-old male with a medical history of coronary artery disease s/pPCI, nephrolithiasis, CKD, diabetes mellitus, hypertension, dyslipidemia was presented to the emergency room of [facility] for generalized weakness and low urine output. On evaluation emergency room patient was found to have a life- threatening hyperkalemia with serum potassium 7 mmol/L, acute kidney injurywith elevated serum creatinine 17.8 mg/dL, metabolic acidosis serum bicarbonate 13.5 mmol/L. He was given insulin D50 calcium gluconate in the [place] emergency room. He had a CAT scan abdomen pelvis done which showed obstructive kidney stones in the right UPJ and total atrophy of the left kidney. Case was discussed with the on-call urologist Dr. Olivares and recommended patient needs to be n.p.o. for surgical intervention. He was transferred to [facility] for further care. Patient is history of CKD due to the longstanding DM, HTN and recurrent KELSEA with baseline serum creatinine 1.4 to 1.6 mg/dL. He follows in my office for his CKD care. Patient after arrival at the [facility] hada repeat labs done which showed persistent [...] visible mass Skin: No rashes or bruises QUALITY CONTROL MANAGER: Awake,Alert, following simple command Musculoskeletal: No joint [...] 10 Mg Tablet) 10 mg PO DAILY [facility] Stop: 08/16/23 08:59 Aspirin (Aspirin 81 Mg Tablet.Dr) 81 mg PO DAILY [facility] Stop: 08/12/23 08:59 Last Admin: 08/15/22 09:45 Dose: 81 mg Atorvastatin Calcium (Atorvastatin 40 Mg Tablet) 40 mg PO HS [facility] Stop: 08/11/23 21:59 Last Admin: 08/14/22 21:08 Dose: 40 mg Dextrose (Dextrose 50% In Water 25 Gm/50 Ml Syringe) 0 gm IV-PUSH PRN PRN PRN Reason: Hypoglycemia Stop: 08/11/23 14:01 Doxycycline Hyclate (Doxycycline Hyclate 100 Mg Tablet) 100 mg PO BID [facility] Stop: 08/18/22 20:59 Last Admin: 08/15/22 09:45 Dose: 100 mg Glucose (Dextrose 40% Gel 15 Gm Tube) 0 gm PO PRN PRN PRN Reason: Hypoglycemia Stop: 08/11/23 14:01 Guaifenesin (Guaifenesin 600 Mg Tab.Er.12h) 1,200 mg PO BID [facility] Stop: 08/12/23 20:59 Last Admin: 08/15/22 09:45 [...] 5,000 Unit/Ml Vial) 5,000 unit SUBCUT Q8HR [facility] Stop: 08/12/23 21:59 Last Admin: 08/15/22 05:09 [...] 300 Units/3 Ml Insuln.Pen) 0 units SUBCUT TID.[facility]; Protocol Stop: 08/11/23 16:59 Last Admin: 08/15/22 09:46 Dose: 5 units Insulin Glargine (Insulin Glargine 300 Units/3 Ml Insuln.Pen) 5 units SUBCUT DAILY [facility] Stop: 08/13/23 08:59 Last Admin: 08/15/22 09:47 Dose: 5 units Melatonin (Melatonin 5 Mg Tablet) 5 mg PO QHS PRN PRN Reason: insomnia Stop: 08/14/23 21:59 Last Admin: 08/14/22 21:08 Dose: 5 mg Metoprolol Tartrate (Metoprolol Tartrate 50 Mg Tablet) 50 mg PO BID [facility] Stop: 08/11/23 20:59 Last Admin: 08/15/22 09:45 [...] office. Documented By: Alicia León MD 08/15/22 115 Signed By: <Electronically signed by Alicia León MD> 08/15/22 1200 [facility] Work Phone: 1([phone]) 590-498802-19-2023 Progress note Author Cade Alvarze [facility] August 15, 2022 11:31am Note Date/Time August 15, 2022 11:31am [facility] [address] [place] [address] Cardiology Progress Note Signed Patient: Victorino Smyth MR#: [id number] : 1940 Acct:[id number] Age/Sex: 82 / M Adm Date: 3 Loc: 4N Room: [address] [place] [address] Type: ADM IN Attending Dr: Hiral Interiano [...] patient has cardiology follow-up with his primary parer in [place] within 4 weeks of discharge. (2) CAD (coronary artery disease): Code(s): I25.10 - Atherosclerotic heart disease of [place] coronary artery without angina pectoris Status: Acute [...] signed by Cade Alvarez MD> 08/15/22 1131 [facility] Work Phone: 1([phone]) 830-606102-18-2023 Progress note Author Hiral Interiano [facility] August 14, 2022 2:57pm Note Date/Time August 14, 2022 2:49pm [facility] [address] [place] [address] Hospitalist Progress Note Signed Patient: Victorino Smyth MR#: [id number] : 1940 Acct:[id number] Age/Sex: 82 / M Adm Date: 3 Loc: 4N Room: [address] [place] [address] Type: ADM IN Attending Dr: Hiral Interiano [...] Insuln.Pen SUBCUT 08/11/23 16:59 Not Given TID.WM.HS [facility] Protocol Insulin Glargine 5 units 08/13/22 09:00 [...] <Electronically signed by Hiral Interiano MD> 08/14/22 2997 [facility] Work Phone: 1([phone]) 991-808102-18-2023 Progress note Author Alicia León [facility] August 14, 2022 11:55am Note Date/Time August 14, 2022 11:55am [facility] [address] [place] [address] Nephrology Progress Note Signed Patient: Victorino Smyth MR#: [id number] : 1940 Acct:[id number] Age/Sex: 82 / M Adm Date: 3 Loc: 4N Room: 5Q8461-7 Type: ADM IN Attending Dr: Hiral Interiano MD Copies to: ~ Date of Service: 08/14/2022 Subjective Subjective Narrative: This is a 82-year-old male with a medical history of coronary artery disease s/pPCI, nephrolithiasis, CKD, diabetes mellitus, hypertension, dyslipidemia was presented to the emergency room of [facility] for generalized weakness and low urine output. On evaluation emergency room patient was found to have a life- threatening hyperkalemia with serum potassium 7 mmol/L, acute kidney injurywith elevated serum creatinine 17.8 mg/dL, metabolic acidosis serum bicarbonate 13.5 mmol/L. He was given insulin D50 calcium gluconate in the [place] emergency room. He had a CAT scan abdomen pelvis done which showed obstructive kidney stones in the right UPJ and total atrophy of the left kidney. Case was discussed with the on-call urologist Dr. Olivares and recommended patient needs to be n.p.o. for surgical intervention. He was transferred to [facility] for further care. Patient is history of CKD due to the longstanding DM, HTN and recurrent KELSEA with baseline serum creatinine 1.4 to 1.6 mg/dL. He follows in my office for his CKD care. Patient after arrival at the [facility] hada repeat labs done which showed persistent [...] visible mass Skin: No rashes or bruises QUALITY CONTROL MANAGER: Awake,Alert, following simple command Musculoskeletal: No joint swelling or limitation of movement Psychiatric: Cooperative, normal mood and affect Objective Intake and Output I&O: Intake & Output 02/08/12/22 08/13/22 08/14/22 23:59 23:59 23:59 23:59 Intake [...] 81 Mg Tablet.Dr) 81 mg PO DAILY [facility] Stop: 08/12/23 08:59 Last Admin: 08/14/22 08:22 Dose: 81 mg Atorvastatin Calcium (Atorvastatin 40 Mg Tablet) 40 mg PO HS [facility] Stop: 08/11/23 21:59 Last Admin: 08/13/22 21:12 Dose: 40 mg Dextrose (Dextrose 50% In Water 25 Gm/50 Ml Syringe) 0 gm IV-PUSH PRN PRN PRN Reason: Hypoglycemia Stop: 08/11/23 14:01 Doxycycline Hyclate (Doxycycline Hyclate 100 Mg Tablet) 100 mg PO BID [facility] Stop: 08/18/22 20:59 Last Admin: 08/14/22 08:23 Dose: 100 mg Glucose (Dextrose 40% Gel 15 Gm Tube) 0 gm PO PRN PRN PRN Reason: Hypoglycemia Stop: 08/11/23 14:01 Guaifenesin (Guaifenesin 600 Mg Tab.Er.12h) 1,200 mg PO BID [facility] Stop: 08/12/23 20:59 Last Admin: 08/14/22 08:22 [...] 5,000 Unit/Ml Vial) 5,000 unit SUBCUT Q8HR [facility] Stop: 08/12/23 21:59 Last Admin: 08/14/22 06:05 [...] 300 Units/3 Ml Insuln.Pen) 0 units SUBCUT TID.[facility]; Protocol Stop: 08/11/23 16:59 Last Admin: 08/14/22 11:50 Dose: Not Given Insulin Glargine (Insulin Glargine 300 Units/3 Ml Insuln.Pen) 5 units SUBCUT DAILY [facility] Stop: 08/13/23 08:59 Last Admin: 08/13/22 08:45 Dose: Not Given Metoprolol Tartrate (Metoprolol Tartrate 50 Mg Tablet) 50 mg PO BID [facility] Stop: 08/11/23 20:59 Last Admin: 08/14/22 08:23 [...] PO TID PRN PRN Reason: Flatulence Stop: 02/16/24 21:59 Last Admin: 08/13/22 00:46 Dose: 80 [...] Perez Jr., D.OManohar08/13/2022 2:25 PM Dictation Location: [place] [address] Any impression(s) listed above is documentation that [...] input output Documented By: Alicia León MD 08/14/22 1153 Signed By: <Electronically signed by Alicia León MD> 08/14/22 1155 [facility] Work Phone: [phone]) 713-169902-18-2023 Progress note Author Cade Alvarez [facility] August 14, 2022 11:21am Note Date/Time August 14, 2022 11:21am [facility] [address] [place] [address] Cardiology Progress Note Signed Patient: Victorino Smyth MR#: [id number] : 1940 Acct:[id number] Age/Sex: 82 / M Adm Date: 3 Loc: 4N Room: [id number] Type: ADM IN Attending Dr: Hiral Interiano [...] % (Auto) 79.6 Lymph % (Auto) 7.8 [place] % (Auto) 11.4 Eos % (Auto) 1.0 Baso % (Auto) 0.2 Nucleat RBC Rel Count 0.1 Neut # (Auto) 5.9 Lymph # (Auto) 0.6 L [place] # (Auto) 0.8 Eos # (Auto) 0.1 [...] MPV Neut % (Auto) Lymph % (Auto) [place] % (Auto) Eos % (Auto) Baso % (Auto) Nucleat RBC Rel Count Neut # (Auto) Lymph # (Auto) [place] # (Auto) Eos # (Auto) Baso # [...] make sure that he has follow-up in [facility] within 4 weeks of discharge. (2) CAD (coronary artery disease): Assessment/Problem Details: Stable/quiescent. No ischemic complications with yesterday's urological procedure. Code(s): I25.10 - Atherosclerotic heart disease of [place] coronary artery without angina pectoris Status: Acute Plan: Medical recommendations as above. Plan Thank you very much for this kind consultation and for allowing us to participate in the care of this very pleasant patient Time spent with patient Time Spent With Patient (min): 30 Documented By: Cade Alvarez MD 08/14/22 1118 Signed By: <Electronically signed by Cade Alvarez MD> 08/14/22 1121 [facility] Work Phone: 1([phone]) [phone] Progress note Author Hiral Interiano [facility] August 13, 2022 3:09pm Note Date/Time August 13, 2022 3:02pm [facility] [address] [place] [address] Hospitalist Progress Note Signed Patient: Victorino Smyth MR#: [id number] : 1940 Acct:[id number] Age/Sex: 82 / M Adm Date: 3 Loc: Room: [address] [place] [address] Type: ADM IN Attending Dr: Hiral Interiano [...] 08/12/22 09:00 08/13/22 08:44 Aspirin 81 Mg Tablet.Dr PO 08/12/23 08:59 Not Given DAILY [facility] [...] Heparin Sodium (Porcine) 2,200 unit 08/11/22 18:45 02/16/23 10:25 Heparin 10,000 Unit/10 Ml Vial IV [...] Ml Insuln.Pen SUBCUT 08/11/23 16:59 Not Given TID.[facility] Protocol Insulin Glargine 5 units 08/13/22 09:00 08/13/22 08:45 Insulin Glargine 300 Units/3 Ml Insuln.Pen SUBCUT 08/13/23 08:59 Not Given DAILY [facility] Metoprolol Tartrate 50 mg 08/11/22 21:00 08/13/22 [...] signed by Hiral Interiano MD> 08/13/22 1509 [facility] Work Phone: [phone] 215-962002-17-2023 Progress note Author Alicia León [facility] August 13, 2022 11:29am Note Date/Time August 13, 2022 11:25am [facility] [address] [place] [address] Nephrology Progress Note Signed Patient: Victorino Smyth MR#: [id number] : 1940 Acct:[id number] Age/Sex: 82 / M Adm Date: 3 Loc: Room: [address] [place] [address] Type: ADM IN Attending Dr: Hiral Interiano MD Copies to: ~ Date of Service: 08/13/2022 Subjective Subjective Narrative: This is a 82-year-old male with a medical history of coronary artery disease s/pPCI, nephrolithiasis, CKD, diabetes mellitus, hypertension, dyslipidemia was presented to the emergency room of [facility] for generalized weakness and low urine output. On evaluation emergency room patient was found to have a life- threatening hyperkalemia with serum potassium 7 mmol/L, acute kidney injurywith elevated serum creatinine 17.8 mg/dL, metabolic acidosis serum bicarbonate 13.5 mmol/L. He was given insulin D50 calcium gluconate in the [place] emergency room. He had a CAT scan abdomen pelvis done which showed obstructive kidney stones in the right UPJ and total atrophy of the left kidney. Case was discussed with the on-call urologist Dr. Olivares and recommended patient needs to be n.p.o. for surgical intervention. He was transferred to [facility] for further care. Patient is history of CKD due to the longstanding DM, HTN and recurrent KELSEA with baseline serum creatinine 1.4 to 1.6 mg/dL. He follows in my office for his CKD care. Patient after arrival at the [facility] hada repeat labs done which showed persistent [...] visible mass Skin: No rashes or bruises QUALITY CONTROL MANAGER: Awake,Alert, following simple command Musculoskeletal: No joint [...] HS [facility] Stop: 08/11/23 21:59 Last Admin: 08/12/22 21:07 [...] 5,000 Unit/Ml Vial) 5,000 unit SUBCUT Q8HR [facility] Stop: 08/12/23 21:59 Last Admin: 08/13/22 07:08 Dose: 5,000 unit Hydralazine HCl (Hydralazine 20 Mg/Ml Vial) 10 mg IV-PUSH Q4H PRN PRN Reason: Hypertension Stop: 08/11/23 13:40 Last Admin: 08/12/22 23:04 Dose: 10 mg Ceftriaxone Sodium (Rocephin) 1 gm in 50 mls @ 100 mls/hr IV Q24H [facility] Last Admin: 08/12/22 16:24 Dose: 100 mls/hr Azithromycin (Zithromax) 500 mg in 250 mls @ 250 mls/hr IV Q24H [facility] Last Admin: 08/12/22 15:06 Dose: 250 mls/hr Sodium Chloride (0.9% Sodium Chloride 1,000 Ml) 1,000 mls @ 0 mls/hr MISCELLANE.Q0M PRN PRN Reason: Dialysis Stop: 08/11/23 14:19 Last Infusion: 08/12/22 12:38 Dose: Infused Insulin Aspart (Insulin Aspart 300 Units/3 Ml Insuln.Pen) 0 units SUBCUT TID.[facility]; Protocol Stop: 02/15/24 16:59 Last Admin: 08/13/22 08:44 Dose: Not Given Insulin Glargine (Insulin Glargine 300 Units/3 Ml Insuln.Pen) 5 units SUBCUT DAILY [facility] Stop: 08/13/23 08:59 Last Admin: 08/13/22 08:45 Dose: Not Given Metoprolol Tartrate (Metoprolol Tartrate 50 Mg Tablet) 50 mg PO BID [facility] Stop: 08/11/23 20:59 Last Admin: 08/13/22 08:45 [...] input output Documented By: Alicia León MD 08/13/221123 Signed By: <Electronically signed by Alicia León MD> 08/13/229 [facility] Work Phone: 1(761) 196-399102-17-2023 Progress note Author Cade Alvarez [facility] August 13, 2022 9:40am Note Date/Time August 13, 2022 9:35am [facility] [address] [place] [address] Cardiology Progress Note Signed Patient: Victorino Smyth MR#: [id number] : 1940 Acct:[id number] Age/Sex: 82 / M Adm Date: 3 Loc: Room: 0F3608-1 Type: ADM IN Attending Dr: Hiral Interiano [...] MPV Neut % (Auto) Lymph % (Auto) [place] % (Auto) Eos % (Auto) Baso % (Auto) Nucleat RBC Rel Count Neut # (Auto) Lymph # (Auto) [place] # (Auto) Eos # (Auto) Baso # [...] RNA (PCR) IU/mL N/A HCV RNA PCR marketing copywriter log10 N/A Hepatitis C Interp 08/12/22 08/12/22 08/13/22 19:37 21:06 04:28 Corrected WBC 9.9 Uncorrected WBC Count 9.9 RBC 3.54 L Hgb 11.6 L Hct 34.2 L MCV 96.5 MCH 32.9 MCHC 34.1 RDW 13.7 Plt Count 129 L MPV 8.7 Neut % (Auto) 79.2 Lymph % (Auto) 9.6 [place] % (Auto) 9.8 Eos % (Auto) 0.9 Baso % (Auto) 0.5 Nucleat RBC Rel Count 0.1 Neut # (Auto) 7.8 H Lymph # (Auto) 0.9 L [place] # (Auto) 1.0 H Eos # (Auto) [...] HCV RNA (PCR) IU/mL HCV RNA PCR marketing copywriter log10 Hepatitis C Interp 08/13/22 08/13/22 04:28 05:25 Corrected WBC Uncorrected WBC Count RBC Hgb Hct MCV MCH MCHC RDW Plt Count MPV Neut % (Auto) Lymph % (Auto) [place] % (Auto) Eos % (Auto) Baso % (Auto) Nucleat RBC Rel Count Neut # (Auto) Lymph # (Auto) [place] # (Auto) Eos # (Auto) Baso # [...] HCV RNA (PCR) IU/mL HCV RNA PCR marketing copywriter log10 Hepatitis C Interp A&P - [...] Code(s): I25.10 - Atherosclerotic heart disease of [place] coronary artery without angina pectoris Status: Acute Plan: Preoperative recommendations as above. Plan Thank you very much for this kind consultation and for allowing us to participate in the care of this very pleasant patient Time spent with patient Time Spent With Patient (min): 30 Documented By: Cade Alvarez MD 08/13/22 0934 Signed By: <Electronically signed by Cade Alvarez MD> 08/13/2240 [facility] Work Phone: [phone] 755-859802-16-2023 Progress note Author Hiral Interiano [facility] August 12, 2022 4:04pm Note Date/Time August 12, 2022 4:04pm [facility] [address] [place] [address] Hospitalist Progress Note Signed Patient: Victorino Smyth MR#: [id number] : 1940 Acct:[id number] Age/Sex: 82 / M Adm Date: 3 Loc: Room: [address] [place] [address] Type: ADM IN Attending Dr: Hiral Interiano [...] Insuln.Pen SUBCUT 08/11/23 16:59 Not Given TID.WM.HS [facility] Protocol Metoprolol Tartrate 50 mg 08/11/22 21:00 [...] kidney disease: Plan: Patient was transferred from [place] ER when found to have acute kidney [...] acidosis. Documented By: Hiral Interiano MD 08/12/22 5039 Signed By: <Electronically signed by Hiral Interiano MD> 08/12/22 4059 [facility] Work Phone: 1([phone]) 406-953502-16-2023 Progress note Author Alicia León [facility] August 12, 2022 11:29am Note Date/Time August 12, 2022 11:24am [facility] [address] [place] [address] Nephrology Progress Note Signed Patient: Victorino Smyth MR#: [id number] : 1940 Acct:[id number] Age/Sex: 82 / M Adm Date: 3 Loc: Room: [address] [place] [address] Type: ADM IN Attending Dr: Hiral Interiano MD Copies to: ~ Date of Service: 08/12/2022 Subjective Subjective Narrative: This is a 82-year-old male with a medical history of coronary artery disease s/pPCI, nephrolithiasis, CKD, diabetes mellitus, hypertension, dyslipidemia was presented to the emergency room of [facility] for generalized weakness and low urine output. On evaluation emergency room patient was found to have a life- threatening hyperkalemia with serum potassium 7 mmol/L, acute kidney injurywith elevated serum creatinine 17.8 mg/dL, metabolic acidosis serum bicarbonate 13.5 mmol/L. He was given insulin D50 calcium gluconate in the [place] emergency room. He had a CAT scan abdomen pelvis done which showed obstructive kidney stones in the right UPJ and total atrophy of the left kidney. Case was discussed with the on-call urologist Dr. Olivares and recommended patient needs to be n.p.o. for surgical intervention. He was transferred to [facility] for further care. Patient is history of CKD due to the longstanding DM, HTN and recurrent KELSEA with baseline serum creatinine 1.4 to 1.6 mg/dL. He follows in my office for his CKD care. Patient after arrival at the [facility] hada repeat labs done which showed persistent [...] visible mass Skin: No rashes or bruises QUALITY CONTROL MANAGER: Awake,Alert, following simple command Musculoskeletal: No joint [...] 81 Mg Tablet.Dr) 81 mg PO DAILY [facility] Stop: 08/12/23 08:59 Last Admin: 08/12/22 08:20 [...] 50 mls @ 100 mls/hr IV Q24H [facility] Last Infusion: 08/11/22 21:49 Dose: Infused Azithromycin (Zithromax) 500 mg in 250 mls @ 250 mls/hr IV Q24H [facility] Last Admin: 08/11/22 16:00 Dose: 250 mls/hr Sodium Chloride (0.9% Sodium Chloride 1,000 Ml) 1,000 mls @ 0 mls/hr MISCELLANE.Q0M PRN PRN Reason: Dialysis Stop: 08/11/23 14:19 Last Admin: 08/12/22 10:24 Dose: 999 mls/hr Insulin Aspart (Insulin Aspart 300 Units/3 Ml Insuln.Pen) 0 units SUBCUT TID.[facility]; Protocol Stop: 08/11/23 16:59 Last Admin: [...] Rehan Fuentes M.D.08/11/2022 4:10 PM Dictation Location: [place] [address] Any impression(s) listed above is documentation that [...] <Electronically signed by Alicia León MD> 08/12/22 1129 [facility] Work Phone: 1(399) 206-192602-16-2023 Progress note Author Cade Alvarez [facility] August 12, 2022 10:04am Note Date/Time August 12, 2022 10:05am [facility] [address] [place] [address] Cardiology Progress Note Signed Patient: Victorino Smyth MR#: [id number] : 1940 Acct:[id number] Age/Sex: 82 / M Adm Date: 3 Loc: Room: [address] [place] [address] Type: ADM IN Attending Dr: Hiral Interiano [...] % (Auto) N/A Lymph % (Auto) N/A [place] % (Auto) N/A Eos % (Auto) N/A Baso % (Auto) N/A Nucleat RBC Rel Count N/A Neut # (Auto) N/A Lymph # (Auto) N/A [place] # (Auto) N/A Eos # (Auto) N/A [...] MPV Neut % (Auto) Lymph % (Auto) [place] % (Auto) Eos % (Auto) Baso % (Auto) Nucleat RBC Rel Count Neut # (Auto) Lymph # (Auto) [place] # (Auto) Eos # (Auto) Baso # [...] MPV Neut % (Auto) Lymph % (Auto) [place] % (Auto) Eos % (Auto) Baso % (Auto) Nucleat RBC Rel Count Neut # (Auto) Lymph # (Auto) [place] # (Auto) Eos # (Auto) Baso # [...] % (Auto) 88.0 Lymph % (Auto) 4.4 [place] % (Auto) 7.4 Eos % (Auto) 0.0 Baso % (Auto) 0.2 Nucleat RBC Rel Count 0.0 Neut # (Auto) 11.8 H Lymph # (Auto) 0.6 L [place] # (Auto) 1.0 H Eos # (Auto) [...] MPV Neut % (Auto) Lymph % (Auto) [place] % (Auto) Eos % (Auto) Baso % (Auto) Nucleat RBC Rel Count Neut # (Auto) Lymph # (Auto) [place] # (Auto) Eos # (Auto) Baso # [...] Code(s): I25.10 - Atherosclerotic heart disease of [place] coronary artery without angina pectoris Status: Acute Plan: Preoperative recommendations as above. Plan Thank you very much for this kind consultation and for allowing us to participate in the care of this very pleasant patient Time spent with patient Time Spent With Patient (min): 30 Documented By: Cade Alvarez MD 08/12/22 0959 Signed By: <Electronically signed by Cade Alvarez MD> 08/12/22 1006 [facility] Work Phone: 1(287) 205-219102-15-2023 Consult note Author Alicia León [facility] August 11, 2022 5:46pm Note Date/Time August 11, 2022 4:00pm [facility] [address] [place] [address] Nephrology Consult Note Signed with Addenda Patient: Victorino Smyth MR#: [id number] : 1940 Acct:[id number] Age/Sex: 82 / M Adm Date: 3 Loc: Room: [address] [place] [address] Type: ADM IN Attending Dr: Hiral Interiano [...] MD Primary Care Provider: Jose Alfaro MD [facility] Reason for Consult: KELSEA on CKD, hyperkalemia, metabolic acidosis management History of Present Illness: This is a 82-year-old male with a medical history of coronary artery disease s/pPCI, nephrolithiasis, CKD, diabetes mellitus, hypertension, dyslipidemia was presented to the emergency room of [facility] for generalized weakness and low urine output. On evaluation emergency room patient was found to have a life- threatening hyperkalemia with serum potassium 7 mmol/L, acute kidney injurywith elevated serum creatinine 17.8 mg/dL, metabolic acidosis serum bicarbonate 13.5 mmol/L. He was given insulin D50 calcium gluconate in the [place] emergency room. He had a CAT scan abdomen pelvis done which showed obstructive kidney stones in the right UPJ and total atrophy of the left kidney. Case was discussed with the on-call urologist Dr. Olivares and recommended patient needs to be n.p.o. for surgical intervention. He was transferred to [facility] for further care. Patient is history of CKD due to the longstanding DM, HTN and recurrent KELSEA with baseline serum creatinine 1.4 to 1.6 mg/dL. He follows in my office for his CKD care. Patient after arrival at the [facility] hada repeat labs done which showed persistent [...] visible mass Skin: No rashes or bruises QUALITY CONTROL MANAGER: Awake,Alert, following simple command Musculoskeletal: No joint [...] Patient consented for dialysis. I consulted the senior information systems architect for hemodialysis catheter placement which was placed [...] team. Documented By: Alicia León MD 08/11/22 1555 Signed By: <Electronically signed by Alicia León MD> 08/11/22 1130 [facility] Work Phone: 1(200) 471-720902-15-2023 Consult note Author Cade Alvarez [facility] August 11, 2022 4:47pm Note Date/Time August 11, 2022 4:36pm [facility] [address] [place] [address] Cardiology Consult Note Signed Patient: Victorino Smyth MR#: [id number] : 1940 Acct:[id number] Age/Sex: 82 / M Adm Date: 3 Loc: Room: [address] [place] [address] Type: ADM IN Attending Dr: Hiral Interiano [...] syndrome in 2017. Patient initially presented to [place] emergency department complaining of shortness of breath [...] # (Auto) N/A Lymph # (Auto) N/A [place] # (Auto) N/A Eos # (Auto) N/A [...] Code(s): I25.10 - Atherosclerotic heart disease of [place] coronary artery without angina pectoris Plan Thank you very much for this kind consultation and for allowing us to participate in the care of this very pleasant patient Documented By: Cade Alvarez MD 08/11/22 6661 Signed By: <Electronically signed by Cade Alvarez MD> 08/11/22 8384 [facility] Work Phone: 1(250) 111-230802-15-2023 Consult note Author Ni Olivares [facility] August 11, 2022 3:24pm Note Date/Time August 11, 2022 3:24pm [facility] [address] [place] [address] Urology Consult Note Signed Patient: Victorino Smyth MR#: [id number] : 1940 Acct:[id number] Age/Sex: 82 / M Adm Date: 3 Loc: Room: [address] [place] [address] Type: ADM IN Attending Dr: Hiral Interiano MD Copies to: MD Ni James MD Mazhar Rahman, MD~ History of Present Illness Consult Details Consult Date: 08/11/2022 Requesting Provider: Hiral Interiano MD HPI: Mr. Smyth is an 82-year-old man transferred from the [facility] earliertoday. The patient presented with some [...] the emergency room prior to transfer to [facility]. He finished breakfast at about [...] % (Auto) N/A, Lymph % (Auto) N/A, [place] % (Auto) N/A, Eos % (Auto) N/A, Baso % (Auto) N/A, Nucleat RBC Rel Count N/A, Neut # (Auto) N/A, Lymph # (Auto) N/A, [place] # (Auto) N/A, Eos # (Auto) N/A, [...] worse than that noted at the [facility] at a current level of 7.4. [...] signed by MD Ni Olivares> 08/11/22 1524 [facility] Work Phone: 1(833) 421-451802-15-2023 History and physical note Author Hiral Interiano [facility] August 11, 2022 2:02pm Note Date/Time August 11, 2022 2:02pm [facility] [address] [place] [address] Hospitalist H&P Signed Patient: Victorino Smyth MR#: [id number] : 1940 Acct:[id number] Age/Sex: 82 / M Adm Date: 3 Loc: Room: [address] [place] [address] Type: ADM IN Attending Dr: Hiral Interiano [...] nephrolithiasis. Patient has been transferred from [facility] ER for acute kidney injury and [...] repeated labs available in the record from [place] ER. Chest x-ray read as mild bilateral [...] negative unless noted below or in HPI COUNT INCLUDES THE [facility] Medical History (Updated 08/11/22 @ 13:59 [...] type 2. He has been transferred from [place] ER for obstructive uropathy with worsening renal [...] signed by Hiral Interiano MD> 08/11/22 1402 [facility] Work Phone: 1(260) 763-447902-15-2023 [facility]* Encounter Date Diagnosis Assessment Notes Treatment Notes Treatment Clinical Notes May, Diabetes mellitus wi th chronic kidney disease (ICD-10 - E11.22) He has tpu-wnetfaf-naha ndent type 2 diabetes and currently takes [...] have advised him to adequately hydrate himself. [facility] Other 08-11-2022 NotePROCEDURE: XR KNEE LT 4V or > COMPARISON: None. HISTORY: Pain of left knee joint FINDINGS: BONES:No acute fracture or dislocation. Minimal degenerative changes. SOFT TISSUES:Negative. No visible soft tissue swelling. EFFUSION:None visible. OTHER: Vascular calcification IMPRESSION: No acute abnormality Electronically authenticated by: TYLER MONSIVAIS Date: 2022-02-04 07:23[facility]05-31-2022 Evaluation note* Encounter Date Diagnosis Assessment Notes Treatment Notes Treatment Clinical Notes October, Diabetes mellitus wi th chronic kidney disease (ICD-10 - E11.22) He has vvy-kgtfxtx-jtlas dent type 2 diabetes and currently takes [...] have advised him to adequately hydrate himself. [facility] Other 05-02-2022 Hospital Discharge instructions Follow Up Care 10/26/2021 10:06:54 With:KADE OLIVEROS, Milton Brewer, URL Address: [address] [place], [place] [id number]- When: Unknown [facility] 05-02-2022 Hospital Discharge instructions Patient Education 10/26/2021 [...] 06/13/2006 Document Revised: 03/02/2019 Document Reviewed: 05/13/2017 [employer] Patient Education 2020 [employer]. 10/26/2021 09:44:44 Urinary Frequency, Adult Urinary Frequency, [...] to keep your urine pale yellow. ?Take fstl-bag-jdvgcov or prescription medicines. ?Eat foods that are high in fiber, such as beans, whole grains, and fresh fruits and vegetables. ?Limit foods that are high in fat and processed sugars, such as fried or sweet foods. General instructions Take ibam-qqy-ydstfih and prescription medicines only as told by [...] the muscles that help control urination. Take iqpv-utq-utzkeat and prescription medicines only as told by your health care provider. Contact a health care provider if your symptoms do not improve or get worse. This information is not intended to replace advice given to you by your health care provider. Make sure you discuss any questions you have with your health care provider. Document Released: 04/09/2010 Document Revised: 12/21/2018 Document Reviewed: 12/21/2018 [employer] Patient Education 2020 [employer]. 10/26/2021 09:44:41 Kidney Stones, Rzon-pf-Aouj Kidney Stones Kidney stones are rock-like masses [...] Follow these instructions at home: Medicines Take gevo-smc-xzirske and prescription medicines only as told by [...] 11/29/2008 Document Revised: 10/30/2019 Document Reviewed: 10/30/2019 [employer] Patient Education 2019 [employer]. Follow Up Care 02/23/2021 14:09:11 With:KADE OLIVEROS, BHUPINDER Rose Address: [facility] [address] [place] [address]- When:10/26/2022 [facility] 11-30-2021 Evaluation note* Encounter Date Diagnosis Assessment Notes Treatment Notes Treatment Clinical Notes Apr, Diabetes mellitus wi th chronic kidney disease (ICD-10 - E11.22) He has quz-ckvydty-wkgbp dent type 2 diabetes and currently takes [...] have advised him to adequately hydrate himself. [facility] Other Evaluation + Plan note Future Appointments Appointment Date:10/29/2022 08:45:00 AM Scheduled Provider:Milton BRAUN MD Location:[facility] Appointment Type:URO Office Visit [facility] evaluation + Plan note Future Appointments Appointment Date:09/14/2022 07:30:00 AM Scheduled Provider: Location:[facility] Appointment Type:Surgical PAT FT Appointment Date:10/07/2022 12:00:00 PM Scheduled Provider: Location:[facility] Appointment Type:Surgery FT Appointment Date:10/29/2022 08:45:00 AM Scheduled Provider:Milton BRAUN MD Location:[facility] Appointment Type:URO Office Visit [facility] Evaluation + Plan note Future Appointments Appointment Date:11/18/2022 10:30:00 AM Scheduled Provider: Location:[facility] Appointment Type:Surgical PAT FT Appointment Date:12/02/2022 11:45:00 AM Scheduled Provider: Location:[facility] Appointment Type:Surgery FT [facility] evaluation + Plan note Future Appointments Appointment Date:06/12/2024 11:00:00 AM Scheduled Provider:Ni OLIVARES MD Location:[facility] Appointment Type:URO Office Visit Future Scheduled Tests Laboratory* Total Protein 24 Hour Urine 02/14/23 [facility] evaluation + Plan note Future Appointments Appointment Date:12/10/2024 11:15:00 AM Scheduled Provider:Ni OLIVARES MD Location:[facility] Appointment Type:URO Office Visit Diagnostic Tests Pending * PSA Total 06/12/24 [facility] Evaluation note* Diagnosis Onset Date Resolution Status Acute kidney injury superimp osed on chronic kidney disease acute Acute kidney insufficiency a cute CAD (coronary artery disease) acute CKD (chronic kidney disease) stage 3, GFR 30-59 ml/min acute Elevated PSA acute Hydronephrosis with ureteral calculus acute Hyperkalemia acute [id number] acute Left renal atrophy acute Metabolic acidosis acute Obstructive nephropathy acut e Preoperative cardiovascular examination acute Right ureteral stone acute 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 Diabetes chronic [facility] Work Phone: Evaluation noteNo assessment information available [facility] Work Phone: evaluation note* Diagnosis Onset Date Resolution Status Secondary hyperparathyroidism acute CKD (chronic kidney disease) stage 3, GFR 30-59 ml/min chronic [id number] chronic Left renal atrophy chronic Metabolic acidosis chronic 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 [facility] Work Phone: history general Narrative - Reported* [...] KIDNEY STONE REMOVAL Hospitalization History SEE ABOVE [facility] Other history general Narrative - Reported* Type [...] KIDNEY STONE REMOVAL Hospitalization History SEE ABOVE [facility] Other history general Narrative - Reported* Type [...] KIDNEY STONE REMOVAL Hospitalization History SEE ABOVE [facility] Other History general Narrative - Reported* Type [...] History KELSEA, HYPERKALEMIA, METAB OLIC ACIDOSIS 08/11/2022 [facility] Other Hospital course Narrative No data available for this section [facility] Hospital Discharge instructions Additional Instructions Follow-up with your Primary Test Inspection Engineer in 4 weeks. Avoid NSAIDs for pain control. Call [facility] on Tuesday at [phone] to arrange a follow up CT scan regarding lung nodule in 4 weeks. Maintain occlussive dressing to HD catheter removal site for 48 hours - return to the Emergency Room for oozing or drainage from catheter exit site, noticeable swelling or itching around neck, shortness of [facility] Work [facility]: Progress note No data available for this section [facility] Chief Complaint and Reason for Visit Chief Complaint ACUTE RENAL FAILURE Reason for Visit Acute kidney injury superimposed on chronic kidney disease Acute kidney insufficiency CAD (coronary artery disease) CKD (chronic kidney disease) stage 3, GFR 30-59 ml/min Elevated PSA Hydronephrosis with ureteral calculus Hyperkalemia [id number] Left renal atrophy Metabolic acidosis Obstructive nephropathy Preoperative cardiovascular examination Right ureteral stone Type 2 diabetes mellitus with diabetic chronic kidney disease Diabetes Chief Complaint n20.0 Chief Complaint n20.0 N40.1 Chief Complaint n20.0 N40.1 N20.0 Chief Complaint Unknown Chief Complaint Unknown RENAL 6 month f/u Reason for Visit Secondary hyperparat hyroidism CKD (chronic kidney disease) stage 3, GFR 30-59 ml/min [id number] Left renal atrophy Metabolic acidosis Type 2 [...] MD Other Provider Active Jen Tamayo [facility]- Other Provider Active Aaliyah Mitchell MD [...] section and content) DATE CREATED AUTHOR 10/03/2022 [facility] DATE CREATED AUTHOR AUTHOR'S ORGANIZ ATION 12/07/2022 [facility] DATE CREATED AUTHOR AUTHOR'S ORGANIZ ATION 10/27/2023 [facility] EPIC DATE CREATED AUTHOR AUTHOR'S ORGANIZ ATION 12/21/2023 [facility] DATE CREATED AUTHOR AUTHOR'S ORGANIZ ATION 05/23/2024 [facility] DATE CREATED AUTHOR AUTHOR'S ORGANIZ ATION 11/24/2024 [facility] Goals (unrecognized section and content) Goals may [...] BE BASED ON THE PRIMARY CLINICAL RECORDS. [facility] [employer] [facility]. provides no warranty or guarantee of the accuracy or completeness of information in this document.
[2024-11-27 08:36] LABS: Hemoglobin 13.5 g/dL (14.0-18.0); Mean Corpuscular HGB Conc 33.8 g/dL (29.9-35.2); Mean Corpuscular Hemoglobin 35.2 pg (25.9-34.0); Mean Corpuscular Volume 104.2 fL (80.0-94.0); Mean Platelet Volume 10.7 fL (9.5-13.5); Platelet Count 154 10^3/uL (150-450); Red Blood Count 3.84 10^6/uL (4.70-6.10); Red Cell Distribution Width 13.2 % (11.0-15.0)
[2024-11-27 08:50] LABS: Bilirubin Urine NEGATIVE (NEGATIVE); Blood Urine NEGATIVE (NEGATIVE); Clarity Urine CLEAR (CLEAR); Color Urine YELLOW (YELLOW); Glucose Urine UA NEGATIVE (NEGATIVE); Ketones Urine NEGATIVE (NEGATIVE); Leukocyte Esterase Urine NEGATIVE (NEGATIVE); Nitrite Urine NEGATIVE (NEGATIVE); Protein Urine TRACE mg/dL (NEG/TRACE); Specific Gravity Urine 1.025 (1.005-1.025); Urobilinogen Urine 0.2 EU/dL (0.2-1.0)
[2024-11-27 09:08] LABS: Bacteria Urine NONE SEEN #/HPF (NONE SEEN); Cast Seen? NONE SEEN #/LPF (NONE SEEN); Crystals Seen? None Seen #/HPF (None Seen); Mucus Urine MODERATE (NONE SEEN); RBC Urine NONE SEEN #/HPF (0-2); Squamous Epithelial Cell Urine RARE #/LPF (NONE/RARE); WBC Urine 0-2 #/HPF (NONE SEEN)
[2024-11-27 09:46] LABS: Albumin Level 3.3 g/dL (3.4-5.0); Anion Gap 16.2; BUN Creatinine Ratio 13.5; Calcium 9.2 mg/dL (8.5-10.1); Carbon Dioxide 24.5 mmol/L (21.0-32.0); Chloride 109 mmol/L (98-107); Estimated GFR (African America 47 (>=60 mL/min/1.73m^2); Estimated GFR (Non-African Ame 39 (>=60 mL/min/1.73m^2); Glucose 152 mg/dL (74-106); Magnesium 1.8 mg/dL (1.8-2.4); Phosphorus 3.9 mg/dL (2.6-4.7); Potassium 4.7 mmol/L (3.5-5.1); Sodium 145 mmol/L (136-145); Uric Acid 6.8 mg/dL (3.5-7.2)
[2024-11-27 10:35] LABS: Creatinine Urine Random 179.73 mg/dL (20.00-300.00); Protein Creatinine Ratio Urine 0.18; Total Protein Urine Random 33.1 mg/dL (<=11.9)
[2024-11-28 11:09] LABS: PTH, Intact 40 pg/mL (15-65)
== END 2024-11-27 08:02 | disposition home or self-care (01) ==
LOC: LAB 08:05
PROVIDERS: PCP Family Medicine; Visit Provider Internal Medicine
DX: N20.0 Calculus of kidney (principal); E78.5 Hyperlipidemia, unspecified; N18.30 Chronic kidney disease, stage 3 unspecified; I12.9 Hypertensive chronic kidney disease with stage 1 through stage 4 chronic kidney disease, or unspecified chronic kidney disease; N25.81 Secondary hyperparathyroidism of renal origin
CPT/HCPCS: 36415; 80069; 81001; 82306; 82570; 83735; 83970; 84156; 84550; 85027

== ENCOUNTER 2024-12-12 08:48 | Outpatient (OUT) | payer MEDICARE, SELFPAY ==
--- OUTSIDE RECORDS SUMMARY | 2024-09-06 05:15 | XMS_ITS ---
Author Organization [facility] in [place] Address [address] [place] [address] Care Team Providers Care Delimer Name Role Phone Jose Danielson Primary Care Provider [phone] Results Component Value Reference Range Notes CREATININE Reviewed date:09/12/2024 07:49:34 PM Interpretation: Performing Lab: Notes/Report: [facility] , Creatinine 1.71 0.70-1.30 mg/dL Estimated GFR ( Yana 47 >=60 mL/min/1.73m 2 Estimated GFR (Non- Lisa 39 >=60 mL/min/1.73m 2 Performing Lab: see note ML - [facility] LB REASON FOR VISIT lab Encounters Encounter Location Date Provider Diagnosis [facility] [address] [facility] [place] [address] 09/06/2024 Jose Danielson Encounter for other preprocedural examination Z01.818 Assessments Encounter Date Diagnosis (ICD Code) Assessment Notes Treatment Notes Treatment Clinical Notes Section Notes 09/06/2024 Encounter for other preprocedural examination (ICD-10 - Z01.818) Plan Of Treatment Next Appt Details Provider Name:Jay Doty, 04/23/2025 09:00:00 AM, [address] [place], [address], Progress Notes * Victorino SMYTHDOB:[birth year] (84 yo M)Acc No.[id number]:09/06/2024 Patient: Victorino GUEVARA :1940 A ge:84 Y S ex:Male Address:[address] [place] [address], [place], [address] Subjective: * Chief Complaints: * L ab * Medical History: * Surgical History: * Hospitalization/Major Diagno stic Procedure: * Medications: Objective: * Vitals: * Physical Examination: Assessment: * Assessment: 1. E ncounter for other preprocedural examination - Z01.818 (Primary) Plan: * Treatment: * Procedure Codes: * true * Date: Generated for Mini javier/Eve/Benniesmitting on: 0 12/12/2024 08:54 AM EDT
--- OUTSIDE RECORDS SUMMARY | 2024-09-12 15:49 | XMS_ITS ---
Author Organization [facility] [place] Address [address] [place] [address] Care Team Providers Care It Teacher Name Role Phone Jose Danielson Primary Care Provider REASON FOR VISIT appendix Encounters Encounter Location Date Provider Diagnosis [facility] [address] [facility] [place] [address] 09/12/2024 Jose Danielson Plan Of Treatment Next Appt Details Provider Name:Jay Doty, 04/23/2025 09:00:00 AM, [address] [place], [address], Progress Notes * SMYTHAristides DUENASesDOB:[birth year] (84 yo M)Acc No.[id number]:09/12/2024 Patient: Aristides GUEVARAard :1940 A ge:84 Y S ex:Male Address:[address] [place] [address], [address] * true * Date: Generated for Printi ng/Faxing/eTransmitting on: 0 12/12/2024 08:53 AM EDT
--- OUTSIDE RECORDS SUMMARY | 2024-12-03 10:49 | XMS_ITS | Continuity of Care Document ---
Author Organization [facility] Address [address] [place] [address] Phone Support Name Relationship Address Phone Anna Ricketts Emergency Contact [id number] [address] Jose Danielson MD Personal Relationship [address] [place] [address] Deny León Personal Relationship [address] [place] [address] Care Teams Patient Care Team Team Status: Active Member Role Status Dates Jose Danielson MD Primary Care Provider Active Visit Care Team Team Status: Active Member Role Status Sarabjit Danielson MD Primary Care Provider Active Start: November 27, 2024 Alicia León MD Attending Provider Active Start : November 27, 2024 Patient Care Team Team Status: Inactive Member Role Status Sarabjit Danielson MD Primary Care Provider Active Start: December 03, 2024 End: December 03, 2024 Alicia León MD Attending Provider Active Start : December 03, 2024 End: December 03, 2024 Chief Complaint and Reason for Visit Chief Complaint Admit Date RENAL 6 MONTH F/U December 03, 2024 2:13p m Reason for Visit Admit Date Hyperuricemia December 03, 2024 2:13p m Nephrolithiasis December 03, 2024 2:13p m Secondary hyperparathyroidism December 03, 2024 2:13pm CKD (chronic kidney disease) stage 3, GF R 30-59 ml/min December 03, 2024 2:13pm Hyperlipidemia December 03, 2024 2:13p m Hypertensive chronic kidney disease with stage 1 through stage 4 chronic ki December 03, 2024 2:13pm Left renal atrophy Janet 9th, 2025 2:13p m Type 2 diabetes mellitus with diabetic c hronic kidney disease December 03, 2024 2:13pm Allergies, Adverse Reactions, Alerts Allergen Type Severity Reaction Last Updated Verified Status ciprofloxacin Allergy Unknown Hives December 03, 2024 9:10am Yes Active Penicillins Allergy Unknown Hives December 03, 2024 9:10am Yes Active Social History Smoking Status Status Start Date End Date Date of Observa tion Ex-smoker (finding) November 12:04pm Observation Status Observation Response Date of Response Patient Sex Male December 03, 2024 2 :48pm Assigned Sex Male 1940 Family History Relationship Condition Age at Onset Recorded Date/T jeyson Not Specified No pertinent family history Unknown brother Hypertension Unknown father Family history of mental disorder Unknown Heart disease Unknown Unknown mother Unknown Problems Active Problems Medical Problem Onset Date Status Comments Type 2 diabetes mellitus wit h diabetic chronic kidney disease Active Problem List ozzy n-up per request of Phys. EHR Cmte Secondary hyperparathyroidism Active Diabetes Active CKD (chronic kidney disease) stage 3, GFR 30-59 ml/min Active Hypertensive chronic kidney disease with stage 1 through stage 4 chronic kidney disease, or unspecified chronic kidney disease Active Hyperlipidemia Active Hyperuricemia Active Nephrolithiasis Active Metabolic acidosis Active Left renal atrophy Active Hypertension Active Inactive/Resolved Problems Medical Problem Onset Date Status Comments Acute kidney injury Resolved Elevated PSA, less than 10 ng/ml Resolved Problem List clean-up per request of Phys. EHR Cmte Hydronephrosis Resolved Problem List clean-up per request of Phys. EHR Cmte Elevated PSA Resolved Problem List cl adam-up per request of Phys. EHR Cmte Hematuria Resolved Problem List cl adam-up per request of Phys. EHR Cmte Prostatic enlargement Resolved Proble m List clean-up per request of Phys. EHR Cmte CAD (coronary artery disease) Resolved Problem List clean-up per request of Phys. EHR Cmte Acute kidney insufficiency Resolved P roblem List clean-up per request of Phys. EHR Cmte Hydronephrosis with ureteral calculus Res olved Problem List clean-up per request of Phys. EHR Cmte Lung nodule Resolved Problem List cl adam-up per request of Phys. EHR Cmte Bilateral ureteral obstruction Resolved Problem List clean-up per request of Phys. EHR Cmte Pyelonephritis Resolved Problem List clean-up per request of Phys. EHR Cmte Renal failure Resolved Ureterolithiasis Resolved Problem Lis t clean-up per request of Phys. EHR Cmte Clot retention of urine Resolved Prob kim List clean-up per request of Phys. EHR Cmte Right distal ureteral calculus Resolved Problem List clean-up per request of Phys. EHR Cmte Acute kidney injury superimp osed on chronic kidney disease Resolved Problem List ozzy n-up per request of Phys. EHR Cmte Obstructive uropathy Resolved Problem List clean-up per request of Phys. EHR Cmte Preoperative cardiovascular examination Resolved Problem List clean-u p per request of Phys. EHR Cmte Left ureteral calculus Resolved Probl em List clean-up per request of Phys. EHR Cmte Right ureteral stone Resolved Problem List clean-up per request of Phys. EHR Cmte Cystitis Resolved Problem List cl adam-up per request of Phys. EHR Cmte Obstructive nephropathy Resolved Prob kim List clean-up per request of Phys. EHR Cmte Hyperkalemia Resolved Problem List cl adam-up per request of Phys. EHR Cmte Medications Medication Status Dose Units Route Directions Qty Days St art Date Stop Date End Date Instructions Amlodipine 2.5 mg tablet Active 0 .ROUTE .COMPLEX 90 November 27, 2024 11:28a m TAKE 1 TABLET BY MOUTH DAILY Atorvastatin 80 mg tablet Discont inued 40 MG PO Bedtime [facility] 2018 1:00am December 20, 2023 11:50 am Nitroglyceri n 0.3 mg Tablet, Sublingual Discont inued 0.3 MG SUBLIN GUAL every 5 to 15 minutes as needed for Chest Pain [facility] 2018 1:00am December 20, 2023 11:54 am Acetaminophe n-Codeine (Tylenol-Cod eine #3) 300-30 mg Tablet Discont inued 300 MG PO Q6H as needed for Pain [facility] 2018 1:00am Janua ry 2019 10:12 am Amlodipine 10 mg tablet Discont inued 10 MG PO Daily [facility] 2018 1:00am December 20, 2023 11:50 am Metformin 1,000 mg tablet Discont inued 1000 MG PO Twice daily [facility] 2018 1:00am Dece torito 2018 1:11p m Glimepiride 4 mg tablet Discont inued 2 MG PO Daily [facility] 2018 1:00am [facility] torito 2018 1:11p m Metoprolol Tartrate 50 mg tablet Active 50 MG PO Twice daily [facility] 2018 1:00am Aspirin 81 mg Tablet,[place] ble Active 81 MG PO Daily [facility] 2018 1:00am Lisinopril 40 mg tablet Discont inued 60 MG PO Daily [facility] 2018 1:00am [facility] 2018 1:11p m Sitagliptin Phosphate (Januvia) 100 mg tablet Discont inued 100 MG PO Daily [facility] 2018 1:00am [facility] 2018 1:11p m Ticagrelor 90 mg tablet Discont inued 90 MG PO Twice daily [facility] 2018 1:00am [facility] 2019 10:12 am Cholecalcife rol (Vitamin D3) 5,000 unit Tablet,Disin tegrating Discont inued 5000 UNIT PO Daily [facility] 2018 1:00am December 20, 2023 11:59 am Dicyclomine 10 mg capsule Discont inued 10 MG PO Three times daily as needed for spasm 14 [facility] 2018 1:09pm December 20, 2023 11:59 am for bladder spasms Glimepiride 4 mg tablet Discont inued 1 MG PO Daily 0 [facility] 2018 1:10pm December 20, 2023 11:51 am Sitagliptin Phosphate 100 mg tablet Discont inued 50 MG PO Daily 0 [facility] 2018 1:10pm December 20, 2023 12:02 pm Doxycycline Hyclate 100 mg tablet Discont inued 100 MG PO Twice daily 14 7 y 2019 1:00am Febru maria a 2022 2:41p m Atorvastatin 80 mg tablet Active 80 MG PO Daily December 20, 2023 12:00a m Glimepiride 2 mg tablet Discont inued 2 MG PO Every morning December 20, 2023 12:00a m [facility] 2023 4:36p m administer with breakfast Isosorbide Mononitrate 120 mg tablet extended release 24 hr Active 120 MG PO Daily December 20, 2023 12:00a m Sitagliptin Phosphate 100 mg tablet Discont inued 100 MG PO Daily December 20, 2023 11:52a m December 20, 2023 12:02 pm Levothyroxin e 50 mcg tablet Active 50 MCG PO Daily December 20, 2023 12:00a m Liothyronine 5 mcg tablet Active 5 MCG PO Daily December 20, 2023 12:00a m Lisinopril 20 mg tablet Active 20 MG PO Daily December 20, 2023 12:00a m Nitroglyceri n 0.4 mg tablet, sublingual Active 0.4 MG SUBLIN GUAL every 5 to 15 minutes as needed December 20, 2023 12:00a m Pioglitazone 15 mg tablet Active 15 MG PO Daily December 20, 2023 12:00a m Ranolazine 500 mg tablet extended release 12 hr Active 500 MG PO Twice daily December 20, 2023 12:00a m Tiotropium [place] (Spiriva Respimat) 2.5 mcg/actuatio n mist Active 2 PUFF INHALA TION Daily December 20, 2023 12:00a m Albuterol Sulfate (Ventolin Hfa) 90 mcg/actuatio n HFA aerosol inhaler Discont inued 1 PUFF INHALA TION Every 4 hours as needed December 20, 2023 12:00a m Decem torito 2023 4:36p m Vitamin B Complex capsule Active 1 CAP PO Daily December 20, 2023 12:00a m administer with a meal Illt-Uvafk-[id number] al Bor 750 mg-100 mg- 25 mcg tablet Active 1 TAB PO Twice daily December 20, 2023 12:00a m Cholecalcife rol (Vitamin D3) 125 mcg (5,000 unit) capsule Active 5000 UNIT PO Daily December 20, 2023 12:00a m Magnesium Oxide 400 mg (241.3 mg magnesium) tablet Active 400 MG PO Daily December 20, 2023 12:00a m Triamcinolon e Acetonide 0.5 % cream Discont inued 1 APPLIC TOPICA L Twice a Week December 20, 2023 12:00a m December 03, 2024 2:20p m Ketoconazole 2 % cream Active 1 APPLIC TOPICA L Twice daily December 20, 2023 12:00a m Sitagliptin 100 mg tablet Active 100 MG PO Daily December 20, 2023 12:00a m Glimepiride 2 mg tablet Active 2 MG PO Twice daily [facility] er 2023 4:32pm administer with breakfast Albuterol Sulfate (Ventolin Hfa) 90 mcg/actuatio n HFA aerosol inhaler Active 2 PUFF INHALA TION Every 4 hours as needed [facility] er 2023 4:35pm Amlodipine 2.5 mg tablet Discont inued 2.5 MG PO Daily 90 [facility] er 2023 1:00am November 27, 2024 11:29 am Medical Equipment Device Date Implanted Device Details Polymeric ureteral stent July 04, 2019 DARI: [id number] Issuing Agency: [facility] Device Id: [id number] Expiration Date: 2022-04-08 Lot Number: [id number] Polymeric ureteral stent June 15, 2019 DARI : [id number] Issuing Agency: [facility] Device Id: [id number] Expiration Date: 2022-02-04 Lot Number: [id number] Polymeric ureteral stent June 15, 2019 DARI : [id number] Issuing Agency: [facility] Device Id: [id number] Expiration Date: 2022-02-13 Lot Number: [id number] Polymeric ureteral stent August 13, 2022 DARI : [id number] Issuing Agency: [facility] Device Id: [id number] Expiration Date: 2025-02-22 Lot Number: [id number] Relevant Diagnostic Tests and/or Laboratory Data Laboratory Results Test Date/Time Result Interpretation Reference Range Result Comment Performing Site Urine Random Creatinine November 27, 2024 8:15am 179.73 mg/dL 20.00-300.0 0 Hematocrit November 27, 2024 8:28am 40.0 % Below low normal 42.0-54.0 Magnesium Level November 27, 2024 8:28am 1.8 mg/dL 1.8-2.4 Uric Acid November 27, 2024 8:28am 6.8 mg/dL 3.5-7.2 Anion Gap November 27, 2024 8:28am 16.2 25-Hydroxy Vitamin D Total November 27, 2024 8:28am 70.4 ng/mL <20 ng/mL Vit D - <30 ng/mL Vit D insufficient 30-100 ng/mL Vit D sufficient>1 00 ng/mL Potential Toxicity Parathyroid Hormone (Intact) November 27, 2024 8:28am 40 pg/mL 15-65 Performed at: [facility] [employer] [id number] Director: Lee Bob PhD, Phone: [phone] Urine Protein/Creatin ine Ratio November 27, 2024 8:15am 0.18 Hemoglobin November 27, 2024 8:28am 13.5 g/dL Below low normal 14.0-18.0 Albumin November 27, 2024 8:28am 3.3 g/dL Below low normal 3.4-5.0 Urine Random Total Protein November 27, 2024 8:15am 33.1 mg/dL Above high normal <=11.9 Mean Corpuscular Hemoglobin November 27, 2024 8:28am 35.2 pg Above high normal 25.9-34.0 BUN/Creatinine Ratio November 27, 2024 8:28am 13.5 Mean Corpuscular Hemoglobin Concent November 27, 2024 8:28am 33.8 g/dL 29.9-35.2 Blood Urea Nitrogen November 27, 2024 8:28am 23.0 mg/dL Above high normal 7.0-18.0 Mean Corpuscular Volume November 27, 2024 8:28am 104.2 fL Above high normal 80.0-94.0 Calcium Level November 27, 2024 8:28am 9.2 mg/dL 8.5-10.1 Mean Platelet Volume November 27, 2024 8:28am 10.7 fL 9.5-13.5 Chloride Level November 27, 2024 8:28am 109 mmol/L Above high normal 98-107 Platelet Count November 27, 2024 8:28am 154 10 3/uL 150-450 Carbon Dioxide Level November 27, 2024 8:28am 24.5 mmol/L 21.0-32.0 Red Blood Count November 27, 2024 8:28am 3.84 10 6/uL Below low normal 4.70-6.10 Creatinine November 27, 2024 8:28am 1.70 mg/dL Above high normal 0.70-1.30 Red Cell Distribution Width November 27, 2024 8:28am 13.2 % 11.0-15.0 Estimated GFR () November 27, 2024 8:28am 47 Below low normal >=60 mL/min/1.73 m 2 Corrected White Blood Count November 27, 2024 8:28am 6.0 10 3/uL 4.0-11.0 Estimated GFR (Non- November 27, 2024 8:28am 39 Below low normal >=60 mL/min/1.73 m 2 Glucose Level November 27, 2024 8:28am 152 mg/dL Above high normal 74-106 Potassium Level November 27, 2024 8:28am 4.7 mmol/L 3.5-5.1 Sodium Level November 27, 2024 8:28am 145 mmol/L 136-145 Phosphorus Level November 27, 2024 8:28am 3.9 mg/dL 2.6-4.7 Vital Signs Vital Reading Result Reference Range Collection Date/Time Height 70 [in_i] December 03, 2024 2:15pm Weight 127.45 kg December 03, 2024 2:15pm Heart Rate 81 /min 60-100 December 03, 2024 2:15pm Respiratory rate 18 /min 12-24 December 03, 2 025 2:15pm Oxygen saturation by Pulse oximetry 95 % 95-10 0 December 03, 2024 2:15pm BP Systolic 126 mm[Hg] 100-140 December 03, 2024 2:15pm BP Diastolic 68 mm[Hg] 60-100 December 03, 2024 2:15pm BMI (Body Mass Index) 40.3 kg/m2 December 032024 2:15pm Advance Directives Advance Directive Response Recorded Date/ Time Advance Directives No May 5:27am Insurance Providers Guarantor Bryan Saleh Address [address] [address] Contact Info. Home Phone: Payer Policy Id Coverage Id Subscriber's Name Subscriber Id Effective Date Expiration Date Hussein GALDAMEZ/TENA [id number] Encounters Encounter Location(s) Arrival/Admit Date Discharge/Depart Date Provider(s) Non-patient / [facility] November 27, 2024 8:15am Alicia León MD Departed Physician/Prov ider Office Visit [facility] Sand December 03, 2024 2:13pm December 03, 2024 2:48pm Alicia León MD Recent Diagnosis Onset Date Admit Date Hyperuricemia December 03, 2024 2 :13pm Nephrolithiasis December 03, 2024 2 :13pm Secondary hyperparathyroidism Ju ne 2024 2:13pm CKD (chronic kidney disease) stage 3, GFR 30-59 ml/min December 03, 2024 2:13pm Hyperlipidemia December 03, 2024 2 :13pm Hypertensive chronic kidney disease with stage 1 through stage 4 chronic ki December 03, 2024 2:13pm Left renal atrophy December 03 2:13pm Type 2 diabetes mellitus wit h diabetic chronic kidney disease December 03, 2024 2:13pm Assessments Diagnosis Onset Date Resolution Status Admit Date Hyperuricemia acute December 03, 2 025 2:13pm Nephrolithiasis acute December 03, 2024 2:13pm Secondary hyperparathyroidism acute December 03, 2024 2:13pm CKD (chronic kidney disease) stage 3, GFR 30-59 ml/min chronic December 03 2:13pm Hyperlipidemia chronic December 03, 2024 2:13pm Hypertensive chronic kidney disease with stage 1 through stage 4 chronic ki chronic December 03, 2024 2:13pm Left renal atrophy chronic December 032024 2:13pm 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 December 03, 2024 2:13pm Plan of Treatment Author Alicia León [facility] Authored December 03, 2024 2:41p m He has CKD due to the longst anding DM and HTN with baseline; 1.8 to 2 mg/dL. He has no evidence of hematuria and proteinuria on UA. Discussed with the importance of good DM and HTN control to slow down the progression of CKD. Blood pressure is uncontrolled and appears to be euvolemic. Will continue current antihypertensive medications. Advised him to monitor blood pressure at home call office if it stays above 140 over 90 mmHg. Blood sugars are within acceptable range. Advised him continue follow with PCP for DM management. Continue lisinopril for renal protection. He may benefit with SGLT2 inhibitors including Farxiga Abhay Invokana. Will defer this to the PCP. 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 MBD parameters including calcium, phosphorus, PTH and vitamin D are within the goal. Continue oral vitamin D with no need for calcitriol. He denies any recent passage of the kidney stones. Advised him adequately hydrate himself. Continue follow with Dr. Olivares. Continue statins. Continue follow with PCP for monitoring of LFTs and lipid profile. He has hyperuricemia due to the CKD but denies any recent gout flare. Will continue to monitor it without any medication. Future Tests Future scheduled test information is unavailable Pending Tests Test Name Ordered Date Scheduled Date Renal Function Panel December 03, 2024 2:41pm 6 Mon ths Future Visits Future appointment information is unavailable Referrals to Other Providers Referral information is unavailable Future Procedures Procedure Name Ordered Date Scheduled Date Dipstick and Microscopic December 03, 2024 2:41pm 6 Months Hemogram CBC Without Diff December 03, 2024 2:41pm 6 Months Iron and TIBC Profile December 03, 2024 2:41pm 6 Mo nths Ferritin December 03, 2024 2:41pm 6 Months Magnesium December 03, 2024 2:41pm 6 Months Protein Creat Ratio Ur Random December 03, 2024 2:4 1pm 6 Months Parathyroid Hormone Intact December 03, 2024 2:41pm 6 Months Uric Acid December 03, 2024 2:41pm 6 Months Vitamin D 25 Hydroxy Total December 03, 2024 2:41pm 6 Months Future Medications Future medication information is unavailable Patient Instructions Patient instructions are unavailable
--- OUTSIDE RECORDS SUMMARY | 2024-12-06 06:45 | XMS_ITS ---
Author Organization [facility] in [place] Address [address] [place] [address] Care Team Providers Care Horticultural Farmer Name Role Phone Jose Danielson Primary Care Provider [phone] Allergies Allergen (clinical drug ingredient) Drug/Non Drug Allergy documented on EMR Reaction Allergy Type Onset Date Status ciprofloxacin Ciprofloxacin Unknown Drug Allergy Active Penicillin Unknown Drug Allergy Active REASON FOR VISIT 3 month f/u, refill on ranolazine & ketokonazole cream Medications Medication SIG (Take, Route, Frequency, Duration) Notes Start Date End Date Status Vitamin D3 125 MCG (5000 UT) 1 capsule Orally Daily Activ e Triamcinolone Acetonide 0.1 % 1 application Externally Two times a Week Active Terbinafine HCl 250 MG 1 tablet Orally O nce a day for 30 days 03/07/2024 Active Spiriva Respimat 2.5 MCG/ACT 2 puffs Inhalation QD for 90 days Active Ranolazine ER 500 MG 1 tablet Orally Twi ce a day for 90 days Active Nitrostat 0.4 MG as directed Sublingual Active Metoprolol Tartrate 50 MG 1 tablet with food Orally Twice a day Active Magnesium Oxide 400 MG 1 tablet as neede d Orally Once a day Active Lisinopril 20 MG 1 tablet Orally Once a day Active Pioglitazone HCl 15 MG TAKE 1 TABLET BY MOUTH ONCE DAILY for 90 days Active Liothyronine Sodium 5 MCG TAKE 1 TABLET BY MOUTH ONCE DAILY for 90 Active Levsin/SL 0.125 MG 1 tablet under the t ongue and allow to dissolve as needed Sublingual AC and HS 07/19/2023 Active Levothyroxine Sodium 50 MCG TAKE 1 TABLE T BY MOUTH ONCE DAILY IN THE MORNING ON AN EMPTY STOMACH for 90 Active Ketoconazole 2 % 1 application Research Kennel Supervisor ally Once a day Active Januvia 100 MG TAKE 1 TABLET BY GAB TH ONCE DAILY for 90 days Active Glucosamine Chondr 500 Complex - as directed Orally BID Activ e Glimepiride 2 MG 1 tablet Orally twic e daily for 90 days Active B Complex - as directed Orally Daily Active Atorvastatin Calcium 80 MG 1 tablet Oral ly Once a day Active Isosorbide Mononitrate ER 120 MG 2 tablets Orally Once a day for 90 days Active Aspirin 81 81 MG 1 tablet Orally Once a day Active amLODIPine Besylate 2.5 MG 1 tablet Oral ly Once a day for 90 days Active Albuterol Sulfate 108 (90 Base) MCG/ACT 2 puffs as needed for SOB Inhalation Q4H for 30 days Active Accu-Chek Multiclix Lancets Use 1 [...] Ex -moderate cigarette smoker (10-19/day) Vital Signs Blood pressure systolic 122 mm Hg 12/07/19 25 Blood pressure diastolic 62 mm Hg 025 Height 69 in 12/06/2024 Weight 276.6 lbs 12/06/2024 BMI 40.84 kg/m2 12/06/2024 Procedures Procedure Date Ordered Date Performed Result Body Sit e CARDIO Echocardiogram 12/06/2024 N/A *CARDIO Stress Test - Lexiscan Nuclear 12/06/2024 N/A Encounters Encounter Location Date Provider Diagnosis [facility] [address] [place] [address] 12/06/2024 Jose Danielson DM2 (diabetes [facility], type 2) E11.9 ; History of ST elevation myocardial infarction (STEMI) I25.2 ; Hypothyroidism E03.9 ; Over weight E66.3 ; Hyperlipidemia E78.5 ; Coronary artery disease I25.10 and Hypertension I10 Assessments Encounter Date Diagnosis (ICD Code) Assessment Notes Treatment Notes Treatment Clinical Notes Section Notes 12/06/2024 DM2 (diabetes mellitus, type 2) (ICD-10 - E11.9) 12/06/[address] elevation myocardial infarction (STEMI) (ICD-10 - I25.2) 12/06/2024 Hypothyroidism (ICD-10 - E03.9) 12/06/2024 Over weight (ICD-10 - E66.3) 12/06/2024 Hyperlipidemia (ICD-10 - E78.5) 12/06/2024 Coronary artery disease (ICD-10 - I25.10) 12/06/2024 Hypertension (ICD-10 - I10) Plan Of Treatment Pending Test Test Name Order Date CARDIO Echocardiogram 12/06/2024 High Sensitivity Troponin 12/06/2024 BNP 12/06/2024 CBC AUTO DIFF 12/06/2024 PROF 14(COMP METB) 12/06/2024 *CARDIO Stress Test - Lexiscan Nuclear 0 12/06/2024 Next Appt Details Provider Name:Jay Doty, 04/23/2025 09:00:00 AM, [address] [place], [address], Progress Notes * Victorino SMYTHDOB:[birth year] (84 yo M)Acc No.[id number]:12/06/2024 Progress Note Patient: Victorino GUEVARA Provider: Alcira Danielson ([facility])MD :1940 A ge:84 Y S ex:Male Date:12/06/2024 Address:[id number] Check In:10:32 AM ESTCheck O ut:11:35 AM EST Subjective: * Chief Complaints: * 3 month f/uRefill on ranolazine & ketokonazole cream * HPI: G eneral: Getting more frequent Chest pain wors eiwht actiity didnt nee sl nitro happening more frequent dm - controled gerd - stable Tyroid - on meds. * ROS: E ENT: hearing changes d [...] * Active Problem List E11.9 DM2 (diabetes [facility], type 2) Modified On:08/11/2023 Status:confirmed Z87.891 History [...] Modified On:10/26/2022 Status:confirmed L30.1 Dyshidrotic eczema Modified On:10/26/2023W/U Status:confirmed M75.40 Shoulder impingement syndrome Modified On:10/26/2022 [...] ism Modified On:08/24/2023 Status:confirmed E83.51 Hypocalcemia Modified On:08/24/2023U Status:confirmed D72.829 Elevated WBCs Modified On:08/24/2023 Status:confirmed I25.10 CAD (coronary artery disease) Modified On:08/24/2023U Status:confirmed M25.572 Left ankle pain Modified On:06/07/2024U Status:confirmed N18.32 Chronic kidney disea se, stage [...] - Capsule as directed Orally Daily Glimepiride 2 MG Tablet 1 tablet Orally twice daily Glucosamine Chondr 500 Complex [...] tablet Orally Twice a day Spiriva Respimat(Tiotropium Bath Monohydrate) 2.5 MCG/ACT Aerosol Solution 2 puffs Inhalation QD Terbinafine HCl 250 MG Tablet 1 tablet Orally Once a day Triamcinolone Acetonide 0.1 % Cream 1 application Externally Two times a Week Vitamin D3 125 MCG (5000 UT) Capsule 1 capsule Orally Daily Medication List reviewed and reconciled with the patientTaking Accu-Chek Nevaeh Plus(Glucose Blood) - Strip Use [...] Capsule as directed Orally Daily Taking Glimepiride 2 MG Tablet 1 tablet Orally twice daily Taking Glucosamine Chondr 500 [...] Orally Twice a day Taking Spiriva Respimat(Tiotropium Bath Monohydrate) 2.5 MCG/ACT Aerosol Solution 2 puffs Inhalation QD Taking Terbinafine HCl 250 MG Tablet 1 tablet Orally Once a day Taking Triamcinolone Acetonide 0.1 % Cream 1 application Externally Two times a Week Taking Vitamin D3 125 MCG (5000 UT) Capsule 1 capsule Orally Daily Medication List reviewed and reconciled with the patient * Allergies: P enicillinCiprofloxacinno[Allergies Verified] Objective: * Vitals: W t:276.6lbs, Ht: 69 in, BP:122/62mm Hg, BMI:40.84Index, Ht-cm: 175.26 cm, Wt-k.46 kg. * Examination: P hysical Exam: GENERAL: [...] 2) - E11.9 (Primary) [address] elevation myocardial infarction (STEMI) - I25.2 3 . H ypothyroidism - E03.9 ? 4 . O amy weight - E66.3 5 . H yperlipidemia - E78.5 6. C oronary artery disease - I25.10 7 . H ypertension - I10 ? Plan: * Treatment: * Procedure Codes: * * Sign off status: Completed Visit Status: C HK (Check Out) true * Provider: Alcira Danielson ([facility])MD Date: 0 12/06/2024 Generated for Bienvenidoi ng/Eve/eTransmitting on: 0 12/12/2024 08:54 AM EDT History and Physical Notes * HPI (History of Present Illness) Category Sub-Category Detail Notes Category Not es General Getting more frequent Chest pain wors eiwht actiity didnt nee sl nitro happening more frequent dm - controled gerd - stable Tyroid - on meds Examination Category Sub-Category Detail Notes Category Not [...]
--- OUTSIDE RECORDS SUMMARY | 2024-12-12 08:54 | XMS_ITS | Encounter Summary ---
Author Organization [facility] Address [address] [place] [address] Care Team Providers Care Dam Attendant Name Role Phone Jose Danielson MD Primary Care Provider [phone] Reason for Visit * Reason Comments Med Refill Encounter Details Date Type Department Care Team (Late st Contact Info) Description 03/02/2023 Refill [facility] Cardiology [address] [place] [id number] Riya Gage, SERVICE ORDER CLERK [address] [place] [address] Coronary artery disease involving [place] coronary artery of [place] heart without angina pectoris Social History Tobacco Use Types Packs/Day Years Used Date Smoking Tobacco: Never Smokeless Tobacco: Never Alcohol Use Standard Drinks/Week Comments Yes 0 (1 standard drink = 0.6 oz pur e alcohol) socially Sex and Gender Information Value Date Recorded Sex Assigned at Not on file Legal Sex Male 11:09 PM EDT Gender Identity Not on file Sexual Orientation Not on file documented as of this encounter Plan of Treatment Not on file documented as of this encounter Visit Diagnoses Diagnosis Coronary artery disease involving [place] coronary artery of [place] heart without angina pectoris documented in this encounter Care Teams Dam Attendant Relationship Specialty Start Date End Date Jose Danielson MD [address] [place] [address] PCP - General 10/14/22 documented as of this encounter
--- OUTSIDE RECORDS SUMMARY | 2024-12-12 08:54 | XMS_ITS | Referral Summary ---
Author Organization [facility] Address [address] [place] [address] Care Team Providers Care Special Skills Officer Name Role Phone Jose Danielson MD Primary Care Provider [phone] Allergies Active Allergy Reactions Criticality Noted Date Comments Ciprofloxacin Itching 10/14/2022 Penicillins Other 06/14/2014 Medications aspirin 81 mg EC tablet in the morning. Acti ve tiotropium (Spiriva Respimat) 2.5 mcg/actuation inhaler Spiriva [...] 5 mcg by mouth in the morning. 09/26/19 23 Active SITagliptin phosphate (Januvia) 100 mg tablet Januvia 100 mg tablet Active pioglitazone (Actos) 15 mg tablet Take 15 mg by mouth in the morning. 12/25/19 23 Active magnesium oxide (Mag-Ox) 400 mg tablet 400 mg in the morning. Active cholecalciferol (Vitamin D-3) 125 MCG (5000 UT) capsule 1 capsule. Active isosorbide mononitrate ER (Imdur) 60 mg 24 hr tabletIndications:C hest pain, unspecified type,Coronary artery disease involving [place] coronary artery of [place] heart without angina pectoris TAKE 2 TABLETS BY MOUTH IN THE MORNING DO NOT CRUSH OR CHEW 180 tablet 3 12/03/20 24 Active ranolazine (Ranexa) 500 mg 12 hr tabletIndications:C oronary artery disease involving [place] coronary artery of [place] heart without angina pectoris,Stable angina pectoris due to arteriosclerosis of coronary artery TAKE 1 TABLET BY MOUTH IN THE MORNING AND AT BEDTIME . DO NOT CRUSH, CHEW, OR SPLIT 180 tablet 3 05/29/20 24 Active metoprolol tartrate (Lopressor) 50 mg tabletIndications:E ssential hypertension TAKE 1 TABLET BY MOUTH TWICE DAILY 180 tablet 3 06/08/20 24 Active nitroglycerin (Nitrostat) 0.4 mg SL tabletIndications:C oronary artery disease involving [place] coronary artery of [place] heart without angina pectoris DISSOLVE 1 TABLET UNDER THE TONGUE EVERY 5 MINUTES NEEDED FOR CHEST PAIN. MAX OF 3 TABLETS IN 15 MINUTES. CALL 911 IF PAIN PERSISTS. 100 tablet 3 06/08/20 24 Active atorvastatin (Lipitor) 80 mg tabletIndications:C oronary artery disease due to lipid rich plaque TAKE 1 TABLET BY MOUTH AT BEDTIME 90 tablet 3 09/04/19 25 Active lisinopril 20 mg tabletIndications:E ssential hypertension TAKE 1 TABLET BY MOUTH DAILY 90 tablet 3 09/04/19 25 Active Active Problems Problem Noted Date Diagnosed [...] Risk 10.1 % 30-day risk of , MT, or cardiac arrest EKG at last visit [...] EST Plan of Treatment Not on file Insurance [employer] Care Teams Special Skills Officer Relationship Specialty Start Date End Date Jose Danielson MD [address] [phone] PCP - General 10/14/22
--- OUTSIDE RECORDS SUMMARY | 2024-12-12 08:54 | XMS_ITS | Clinical Summary ---
Author Organization [facility] Address [address] [place] [address] Phone Care Team Providers Care Tenter Frame Operator Name Role Phone Unavailable Primary Care Provider [...]
--- OUTSIDE RECORDS SUMMARY | 2024-12-12 08:54 | XMS_ITS | Patient Health Record ---
Author Organization The [facility] in [place] Address [address] [place] [address] Care Team Providers Care Surgical Garment Inspector Name Role Phone Jose Alfaro Primary Care Provider Jay Doty Unavailable [phone] Allergies Allergen (clinical drug ingredient) Drug/Non Drug Allergy documented on EMR Reaction Allergy Type Onset Date Status ciprofloxacin Ciprofloxacin Unknown Drug Allergy Active Penicillin Unknown Drug Allergy Active Results Component Value Reference Range Notes RENAL FUNCTION PANEL Reviewed date:12/14/2023 07:06:29 PM Interpretation: Performing Lab: Notes/Report: [facility] , Sodium 140 136-145 mmol/L Potassium [...] Performing Lab: see note ML - [facility] LB UA RANDOM W or MICROSCOPIC Reviewed date:12/14/2023 07:06:29 PM Interpretation: Performing Lab: Notes/Report: [facility] , Color Urine YELLOW YELLOW Clarity Urine CLEAR CLEAR Specific [place] Urine 1.015 1.005-1.025 pH Urine 5.5 5.0-9.0 [...] #/LPF Performing Lab: see note ML - [facility] FREE T3 Reviewed date:03/28/2024 09:25:13 PM Interpretation: Performing Lab: Notes/Report: [facility] T3 2.43 2.18-3.98 pg/mL Performing Lab: see note ML - [facility] FREE T4 Reviewed date:03/28/2024 09:25:13 PM Interpretation: Performing Lab: Notes/Report: [facility] T4 1.12 0.76-1.46 ng/dL Performing Lab: see note ML - [facility] PROF 14(COMP METB) Reviewed date:03/28/2024 09:25:13 PM Interpretation: Performing Lab: Notes/Report: [facility] , Sodium 138 136-145 mmol/L Potassium [...] 1.0 Performing Lab: see note ML - [facility] LB TSH Reviewed date:03/28/2024 09:25:13 PM Interpretation: Performing Lab: Notes/Report: [facility] , Thyroid Stimulating Hormone 0.837 0.358-3.740 uIU/mL Performing Lab: see note ML - [facility] LB PSA Total+% Free Reviewed date:03/29/2024 08:37:00 PM Interpretation: Performing Lab: Notes/Report: [facility] , Prostate Specific Ag 6.2 0.0-4.0 ng/mL Brenda ECLIA methodology. According to the [employer], Serum PSA should decrease and [...] other population of men. Performed at: - [address] [id number] Regional Driver: Lee Bob PhD, Phone: [phone] Performing Lab: see note - [facility] LB Occult Blood* Reviewed date:03/29/2024 08:37:00 PM Interpretation: Performing Lab: Notes/Report: [facility] , Occult Blood Positive Performing Lab: see note ML - [facility] LB MAGNESIUM Reviewed date:05/30/2024 07:24:41 PM Interpretation: Performing Lab: Notes/Report: [facility] , Magnesium 1.9 1.8-2.4 mg/dL Performing Lab: see note ML - [facility] LB URIC ACID SERUM Reviewed date:05/30/2024 07:24:41 PM Interpretation: Performing Lab: Notes/Report: [facility] , Uric Acid 7.5 3.5-7.2 mg/dL Performing Lab: see note ML - [facility] LB XR ankle LT min 3V Reviewed date:06/11/2024 02:13:25 PM Interpretation: Performing Lab: Notes/Report: Source Facility: [facility] [place] [address] [place] [address] XRay Report Signed Patient: GLADYS SMYTH MR#: [id number] : 1940 Acct:[id number] Age/Sex: 83 / M ADM Date: 06/07/24 Loc: RAD Attending Dr: Tray Alfrao M.D. Ordering Physician: Tray Alfaro M.D. Date of Service: 06/07/24 Procedure(s): XR ankle LT min 3V Accession Number(s): [id number] cc: Tray Alfaro M.D. The [place] [address] Patient Name: GLADYS SMYTH MRN: [id number] date: 1940 Sex: M Assigned Patient Location: [facility] Current Patient Location: Accession/Order Number: [id number] Exam Date: 06/07/2024 12:17 Report Date: 06/11/2024 [...] M.D. Signed By: 06/11/24716 DD/ 3 TD/TT: Play Therapist: [place] [address] XRay Report Signed Patient: GLADYS SMYTH MR#: [id number] : 1940 Acct:[id number] Age/Sex: 83 / M ADM Date: 06/07/24 Loc: RAD Attending Dr: Shereen Alfaro M.D. Ordering Physician: Tray Alfaro M.D. Date of Service: 06/07/24 Procedure(s): XR ank le LT min 3V Accession Number(s): [id number] cc: Tray Alfaro M.D. [place] [address] Patient Name: GLADYS SMYTH MRN: [id number] date: 1940 Sex: M Assigned Patient Location: [facility] Current Patient Location: Accession/Order Numb er: [id number] Exam Date: 12:17 Report Date: 06/11/2024 07:14 [...] XR/XR ankle LT min 3V IMPRESSION: Moderate degenerativ e changes Electronically authenticated by: TYLER MONSIVAIS Date: 06/11/2024 07:14 Dictated By: Riley Monsivais M.D. Signed By: 06/11/24716 DD/ 3 TD/TT: Play Therapist: US renal BI Reviewed date:06/11/2024 02:13:25 PM Interpretation: Performing Lab: Notes/Report: Source Facility: [address] [address] Ultrasound Report Signed Patient: GLADYS SMYTH MR#: [id number] : 1940 Acct:[id number] Age/Sex: 83 / M ADM Date: 06/11/24 Loc: US Attending Dr: Srinivas Olivares M.D. Ordering Physician: Srinivas Olivares M.D. Date of Service: 06/11/24 Procedure(s): US renal BI Accession Number(s): [id number] cc: Srinivas Olivares M.D.; Tray Alfaro M.D. [place] [address] Patient Name: GLADYS SMYTH MRN: [id number] date: 1940 Sex: M Assigned Patient Location: Current Patient Location: US Accession/Order Number: [id number] Exam Date: 06/11/2024 07:00 Report Date: 06/11/2024 [...] Signed By: 06/11/24 0751 DD/ 0748 TD/TT: Play Therapist: [place] [address] Ultrasound Report Signed Patient: GLADYS SMYTH MR#: [id number] : 1940 Acct:[id number] Age/Sex: 83 / M ADM Date: 06/11/24 Loc: US Attending Dr: Lisa Maza Ordering Physician: Srinivas Olivares M.D. Date of Service: 06/11/24 Procedure(s): US shar al BI Accession Number(s): [id number] cc: Srinivas Olivares M.D; Tray Alfaro M.D. The [place] [id number] Patient Name: GLADYS SMYTH MRN: [id number] date: 1940 Sex: M Assigned Patient Location: US Current Patient Location: US Accession/Order Numb er: [id number] Exam Date: 07:00 Report Date: 06/11/2024 07:48 At the request of: SRINIVAS OLIVARES Procedure: US renal BI EXAMINATION: US edison l BI HISTORY: Kidney Ston e N20.0 COMPARISON: [...] Signed By: 06/11/24 0751 DD/ 0748 TD/TT: Play Therapist: UA RANDOM W or MICROSCOPIC Reviewed date:11/27/2024 04:11:10 PM Interpretation: Performing Lab: Notes/Report: [facility] , Color Urine YELLOW YELLOW Clarity Urine CLEAR CLEAR Specific [place] Urine 1.025 1.005-1.025 pH Urine 6.0 5.0-9.0 Protein Urine TRACE NEG/TRACE mg/dL Glucose Urine UA NEGATIVE NEGATIVE mg/dL Bilirubin Urine NEGATIVE NEGATIVE Ketones Urine NEGATIVE NEGATIVE mg/dL Blood Urine NEGATIVE NEGATIVE Nitrite Urine NEGATIVE NEGATIVE Urobilinogen Urine 0.2 0.2-1.0 EU/dL Leukocyte Esterase Urine NEGATIVE NEGATIVE WBC Urine 0-2 NONE SEEN #/HPF RBC Urine NONE SEEN 0-2 #/HPF Bacteria Urine NONE SEEN NONE SEEN #/HPF Mucus Urine MODERATE NONE SEEN Squamous Epithelial Cell Urine RARE NONE/RARE #/LPF Crystals Seen? None Seen None Seen #/HPF Cast Seen? NONE SEEN NONE SEEN #/LPF Performing Lab: see note ML - [facility] LB CBC no Diff (Hemogram) Reviewed date:11/27/2024 04:11:10 PM Interpretation: Performing Lab: Notes/Report: [facility] , White Blood Count 6.0 4.0-11.0 10 3/uL Red Blood Count 3.84 4.70-6.10 10 6/uL Hemoglobin 13.5 14.0-18.0 g/dL Hematocrit 40.0 42.0-54.0 % Mean Corpuscular Volume 104.2 80.0-94.0 fL Mean Corpuscular Hemoglobin 35.2 25.9-34.0 pg Mean Corpuscular HGB Conc 33.8 29.9-35.2 g/dL Red Cell Distribution Width 13.2 11.0-15.0 % Platelet Count 154 150-450 10 3/uL Mean Platelet Volume 10.7 9.5-13.5 fL Performing Lab: see note ML - [facility] LB PTH, Intact Reviewed date:11/28/2024 09:18:57 PM Interpretation: Performing Lab: Notes/Report: [facility] , PTH, Intact 40 15-65 pg/mL Performed at: [facility] [address] [id number] Regional Driver: Lee Bob PhD, Phone: [phone] Performing Lab: see note - [facility] LB VITAMIN D 25 [place] Reviewed date:11/27/2024 04:11:10 PM Interpretation: Performing Lab: Notes/Report: [facility] , Vitamin D 70.4 <20 ng/mL Vit D deficient 20-<30 ng/mL Vit D insufficient 30-100 ng/mL Vit D sufficient >100 ng/mL Potential Toxicity Performing Lab: see note - [facility] URINE T PROTEIN CREAT RATIO Reviewed date:11/27/2024 04:11:10 PM Interpretation: Performing Lab: Notes/Report: [facility] , Total Protein Urine Random 33.1 <=11.9 mg/dL Creatinine Urine Random 179.73 20.00-30 0.00 mg/dL Protein Creatinine Ratio Urine 0.18 Performing Lab: see note ML - [facility] LB URIC ACID SERUM Reviewed date:11/27/2024 04:11:10 PM Interpretation: Performing Lab: Notes/Report: [facility] , Uric Acid 6.8 3.5-7.2 mg/dL Performing Lab: see note ML - [facility] LB RENAL FUNCTION PANEL Reviewed date:11/27/2024 04:11:10 PM Interpretation: Performing Lab: Notes/Report: [facility] , Sodium 145 136-145 mmol/L Potassium 4.7 3.5-5.1 mmol/L Chloride 109 98-107 mmol/L Carbon Dioxide 24.5 21.0-32.0 mmol/L Anion Gap 16.2 Glucose 152 74-106 mg/dL Blood Urea Nitrogen 23.0 7.0-18.0 mg/dL Creatinine 1.70 0.70-1.30 mg/dL Estimated GFR ( Yana 47 >=60 mL/min/1.73m 2 Estimated GFR (Non- Lisa 39 >=60 mL/min/1.73m 2 BUN Creatinine Ratio 13.5 Calcium 9.2 8.5-10.1 mg/dL Phosphorus 3.9 2.6-4.7 mg/dL Albumin Level 3.3 3.4-5.0 g/dL Performing Lab: see note - [facility] LB MAGNESIUM Reviewed date:11/27/2024 04:11:10 PM Interpretation: Performing Lab: Notes/Report: [facility] , Magnesium 1.8 1.8-2.4 mg/dL Performing Lab: see note ML - [facility] LB CT abdomen pelvis w con Reviewed date:09/12/2024 07:49:34 PM Interpretation: Performing Lab: Notes/Report: Source Facility: [place] [address] CT Scan Report Signed Patient: GLADYS SMYTH MR#: [id number] : 1940 Acct:[id number] Age/Sex: 84 / M ADM Date: 09/12/24 Loc: LAB Attending Dr: Tray Alfaro M.D. Ordering Physician: Tray Alfaro M.D. Date of Service: 09/12/24 Procedure(s): CT abdomen pelvis w con Accession Number(s): [id number] cc: Tray Alfaro M.D. [place] [address] Patient Name: GLADYS SMYTH MRN: [id number] date: 1940 Sex: M Assigned Patient Location: LAB Current Patient Location: LAB Accession/Order Number: [id number] Exam Date: 09/12/2024 12:26 Report Date: 09/12/2024 [...] Perez Jr., D.OManohar09/12/2024 12:33 PM Dictation Location: [place] [address] Electronically authenticated by: [id number] Y Date: 09/12/2024 12:33 Dictated By: Ifeanyi Perez M.D. Signed By: 09/12/24 1236 DD/ 1233 TD/TT: Play Therapist: [address] [address] [address] Scan Report Signed Patient: GLADYS SMYTH MR#: [id number] : 1940 Acct:[id number] Age/Sex: 84 / M ADM Date: 09/12/24 Loc: LAB Attending Dr: Shereen Alfaro M.D. Ordering Physician: Tray Alfaro M.D. Date of Service: 09/12/24 Procedure(s): CT abdomen pelvis w con Accession Number(s): [id number] cc: Tray Alfaro M.D. [address] [address] Patient Name: GLADYS SMYTH MRN: [id number] date: 1940 Sex: M Assigned Patient Location: LAB Current Patient Location: LAB Accession/Order Numb er: [id number] Exam Date: 09/12/2024 12:26 Report Date: 09/12/2024 12:33 At the request of: TRAY ALFARO MD Procedure: CT abdome n pelvis w con CT ABDOMEN AND PELVI S WITH INTRAVENOUS CONTRAST: CLINICAL HISTORY: Appendicitis COMPARISON: CT abdom en and pelvis 09/27/2023 TECHNIQUE: Spiral images were [...] Prostate gland is normal in size.] Peritoneum/Retroperi ton eum:No free air or free fluid or lymphadenopathy.[ Abd wall/Bones:No ac meg findings. Osseous structures demonstrate degenerative change.[ CT/CT abdomen pelvis w con IMPRESSION: Interval improvement of the inflammatory changes in the region of the appendix. The append ix still appears to BE fluid filled without gross distention or significant inflammatory change. Mucocele cannot BE excluded. Impression dictated by: Ifeanyi Perez Jr., D.O.09/12/2024 12:33 PM Dictation Location: [place] [address] Electronically authenticated by: [id number] Y Date: 09/12/2024 12:33 Dictated By: Ifeanyi Perez M.D. Signed By: 09/12/24 1236 DD/ 1233 TD/TT: Play Therapist: PTH, Intact Reviewed date:05/31/2024 12:45:04 PM Interpretation: Performing Lab: Notes/Report: [facility] , PTH, Intact 61 15-65 pg/mL Performed at: [address] [id number] Regional Driver: Lee Bob PhD, Phone: [phone] Performing Lab: see note LC - [facility] LB CBC no Diff (Hemogram) Reviewed date:05/30/2024 07:24:41 PM Interpretation: Performing Lab: Notes/Report: [facility] , White Blood Count 6.8 4.0-11.0 [...] 9.5-13.5 fL Performing Lab: see note - [facility] LB VITAMIN D 25 [place] Reviewed date:05/30/2024 07:24:41 PM Interpretation: Performing Lab: Notes/Report: [facility] , Vitamin D 64.6 <20 ng/mL Vit D deficient 20-<30 ng/mL Vit D insufficient 30-100 ng/mL Vit D sufficient >100 ng/mL Potential Toxicity Performing Lab: see note - [facility] LB URINE T PROTEIN CREAT RATIO Reviewed date:05/30/2024 07:24:41 PM Interpretation: Performing Lab: Notes/Report: [facility] , Total Protein Urine Random 16.5 <=11.9 mg/dL Creatinine Urine Random 84.23 20.00-30 0.00 mg/dL Protein Creatinine Ratio Urine 0.20 Performing Lab: see note - [facility] LB UA RANDOM W or MICROSCOPIC Reviewed date:05/30/2024 07:24:41 PM Interpretation: Performing Lab: Notes/Report: [facility] , Color Urine LT. YELLOW YELLOW Clarity Urine CLEAR CLEAR Specific [place] Urine 1.015 1.005-1.025 pH Urine 6.0 5.0-9.0 [...] #/LPF Performing Lab: see note ML - [facility] LB RENAL FUNCTION PANEL Reviewed date:05/30/2024 07:24:41 PM Interpretation: Performing Lab: Notes/Report: [facility] , Sodium 144 136-145 mmol/L Potassium [...] 3.4 3.4-5.0 g/dL Performing Lab: see note - [facility] LB PTH, Intact Reviewed date:12/15/2023 12:34:34 PM Interpretation: Performing Lab: Notes/Report: [facility] , PTH, Intact 50 15-65 pg/mL Performed at: - [facility] [address] [id number] Regional Driver: Lee Bob PhD, Phone: [phone] Performing Lab: see note - [facility] LB CBC no Diff (Hemogram) Reviewed date:12/14/2023 07:06:29 PM Interpretation: Performing Lab: Notes/Report: [facility] , White Blood Count 6.2 4.0-11.0 [...] fL Performing Lab: see note ML - [facility] VITAMIN D 25 [place] Reviewed date:12/14/2023 07:06:29 PM Interpretation: Performing Lab: Notes/Report: [facility] , Vitamin D 66.1 <20 ng/mL Vit D deficient 20-<30 ng/mL Vit D insufficient 30-100 ng/mL Vit D sufficient >100 ng/mL Potential Toxicity Performing Lab: see note ML - [facility] URINE T PROTEIN CREAT RATIO Reviewed date:12/14/2023 07:06:29 PM Interpretation: Performing Lab: Notes/Report: [facility] , Total Protein Urine Random 10.9 <=11.9 mg/dL Creatinine Urine Random 71.05 20.00-30 0.00 mg/dL Protein Creatinine Ratio Urine 0.15 Performing Lab: see note ML - [facility] URIC ACID SERUM Reviewed date:12/14/2023 07:06:29 PM Interpretation: Performing Lab: Notes/Report: [facility] , Uric Acid 6.4 3.5-7.2 mg/dL Performing Lab: see note ML - [facility] LB MAGNESIUM Reviewed date:12/14/2023 07:06:29 PM Interpretation: Performing Lab: Notes/Report: [facility] , Magnesium 1.7 1.8-2.4 mg/dL Performing Lab: see note ML - [facility] LB IRON AND TIBC Reviewed date:12/14/2023 07:06:29 PM Interpretation: Performing Lab: Notes/Report: [facility] , Iron 101.0 65.0-175.0 ug/dL Total Iron Binding Capacity 279.0 250.0-450.0 ug/dL Percent Iron Saturation 36.2 Performing Lab: see note - [facility] LB FERRITIN Reviewed date:12/14/2023 07:06:29 PM Interpretation: Performing Lab: Notes/Report: [facility] , Ferritin 111.0 26.0-388.0 ng/mL Performing Lab: see note ML - [facility] LB LIPID PROFILE Reviewed date:03/28/2024 09:25:13 PM Interpretation: Performing Lab: Notes/Report: [facility] , Triglycerides 85 <=150 mg/dL Cholesterol [...] RISK Performing Lab: see note ML - [facility] LB GLYCOHEMOGLOBIN A1C Reviewed date:03/28/2024 09:25:13 PM Interpretation: Performing Lab: Notes/Report: [facility] , Glycohemoglobin A1C 6.9 4.5-6.2 % ADA RECOMMENDED LIMIT 4.0 - 6.0 ADA THERAPEUTIC TARGET < 7.0 ACTION SUGGESTED > 7.0 Estimated Average Glucose 151 Performing Lab: see note ML - [facility] LB CBC AUTO DIFF Reviewed date:03/28/2024 09:25:13 PM Interpretation: Performing Lab: Notes/Report: [facility] , White Blood Count 6.3 4.0-11.0 [...] 3/uL Performing Lab: see note ML - [facility] LB CREATININE Reviewed date:09/12/2024 07:49:34 PM Interpretation: Performing Lab: Notes/Report: [facility] , Creatinine 1.71 0.70-1.30 mg/dL Estimated GFR ( Yana 47 >=60 mL/min/1.73m 2 Estimated GFR (Non- Lisa 39 >=60 mL/min/1.73m 2 Performing Lab: see note ML - [facility] LB COVID-19, Flu A+B IH Reviewed date:08/20/2024 02:02:41 PM Interpretation: Performing Lab: Notes/Report: COVID - FLU A + FLU B - Control + Reason For Referral No Information Medications Medication SIG (Take, Route, Frequency, Duration) Notes Start Date End Date Status Nitrostat 0.4 MG as directed Sublingual Active Metoprolol Tartrate 50 MG 1 tablet with food Orally Twice a day Active Magnesium Oxide 400 MG 1 tablet as neede d Orally Once a day Active Lisinopril 20 MG 1 tablet Orally Once a day Active Liothyronine Sodium 5 MCG TAKE 1 TABLET BY MOUTH ONCE DAILY for 90 Active Levsin/SL 0.125 MG 1 tablet under the t ongue and allow to dissolve as needed Sublingual AC and HS 07/19/2023 Active Levothyroxine Sodium 50 MCG TAKE 1 TABLE T BY MOUTH ONCE DAILY IN THE MORNING ON AN EMPTY STOMACH for 90 Active Ketoconazole 2 % 1 application Music Teacher ally Once a day Active Januvia 100 MG TAKE 1 TABLET BY GAB TH ONCE DAILY for 90 days Active Isosorbide Mononitrate ER 120 MG 2 tablets Orally Once a day for 90 days Active Glucosamine Chondr 500 Complex - as directed Orally BID Activ e Glimepiride 2 MG 1 tablet Orally twic e daily for 90 days Active B Complex - as directed Orally Daily Active Atorvastatin Calcium 80 MG 1 tablet Oral ly Once a day Active Aspirin 81 81 MG 1 tablet Orally Once a day Active amLODIPine Besylate 2.5 MG 1 tablet Oral ly Once a day for 90 days Active Albuterol Sulfate 108 (90 Base) MCG/ACT 2 puffs as needed for SOB Inhalation Q4H for 30 days Active Vitamin D3 125 MCG (5000 UT) 1 capsule Orally Daily Activ e Accu-Chek Multiclix Lancets Use 1 lancet once daily to test blood sugar. Dx: E11.9 for 100 days Active Triamcinolone Acetonide 0.1 % 1 application Externally Two times a Week Active Accu-Chek Nevaeh Plus - Use 1 strip once daily to test blood sugar In Vitro for 100 days Dx: E11.9 Active Terbinafine HCl 250 MG 1 tablet Orally O nce a day for 30 days 03/07/2024 Active Spiriva Respimat 2.5 MCG/ACT 2 puffs Inhalation QD for 90 days Active Ranolazine ER 500 MG 1 tablet Orally Twi ce a day for 90 days Active Pioglitazone HCl 15 MG TAKE 1 TABLET BY MOUTH ONCE DAILY for 90 days Active Immunizations Vaccine Route Administration Date Status Comme nts Arexvy Unknown 03/06/2024 Administered INgrooves Syringe Pre-Filled 30 mcg/0.3 mL Unknown 03/06/2024 Administered Flu, Fluad (6839-3785) (19086) 65 yrs+, single-dose syringe IM Intramuscular 03/23/2023 Administered Flu, Fluad (96271) 65 yrs + High Dose Seasonal (3355-8807) Unknown 03/06/2024 Administered Pneumococcal (Prevnar 13) Unknown [...] Problem Status W/U Status Risk Notes Problem Information temporarily unavailable Chronic kidney disease, unspecified (N18.9) Active confirmed Problem Information temporarily unavailable Morbid (severe) obesity due to excess calories (E66.01) Active confirmed Problem Information temporarily unavailable Hypocalcemia (E83.51) Active confirmed Problem Information temporarily unavailable Disorder of prostate, unspecified (N42.9) Active confirmed Problem Information temporarily unavailable Weakness (R53.1) Active confirmed Problem Information temporarily unavailable OM (onychomycosis) (B35.1) Active confirmed Problem Information temporarily unavailable Hyperlipidemia (E78.5) Active confirmed Problem Information temporarily unavailable Hypertension (I10) Active confirmed Problem Information temporarily unavailable COPD (chronic obstructive pulmonary disease) (J44.9) Active confirmed Problem Information temporarily unavailable Hypothyroidism (E03.9) Active confirmed Problem Information temporarily unavailable Carpal tunnel syndrome (G56.00) Active confirmed Problem Information temporarily unavailable CAD (coronary artery disease) (I25.10) Active confirmed Problem Information temporarily unavailable Coronary artery disease (I25.10) Active confirmed Problem Information temporarily unavailable Left ventricular hypertrophy (I51.7) Active confirmed Problem Information temporarily unavailable DM2 (diabetes mellitus, type 2) (E11.9) Active confirmed Problem Information temporarily unavailable Nephrolithiasis (N20.0) Active confirmed Problem Information temporarily unavailable Right lower quadrant abdominal pain (R10.31) Active confirmed Problem Information temporarily unavailable Acquired hypothyroidism (E03.9) Active confirmed Problem Information temporarily unavailable Appendicitis (K37) Active confirmed Problem Information temporarily unavailable Obstructive uropathy (N13.9) Active confirmed Problem Information temporarily unavailable Pre-op exam (Z01.818) Active confirmed Problem Information temporarily unavailable Diverticulitis (K57.92) Active confirmed Problem Information temporarily unavailable Hemorrhoids (K64.9) Active confirmed Problem Information temporarily unavailable Pyelonephritis (N12) Active confirmed Problem Information temporarily unavailable Left ankle pain (M25.572) Active confirmed Problem Information temporarily unavailable Acute sinus infection (J01.90) Active confirmed Problem Information temporarily unavailable Benign prostatic hyperplasia (N40.0) Active confirmed Problem Information temporarily unavailable Over weight (E66.3) Active confirmed Problem Information temporarily unavailable 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) Active confirmed Problem Information temporarily unavailable Hydronephrosis (N13.30) Active confirmed Problem Information temporarily unavailable History of tobacco abuse (Z87.891) Active confirmed Problem Information temporarily unavailable History of ST elevation myocardial infarction (STEMI) (I25.2) Active confirmed Problem Information temporarily unavailable Adenocarcinoma of prostate (C61) Active confirmed Problem Information temporarily unavailable Cholesteatoma (H71.90) Active confirmed Problem Information temporarily unavailable Shoulder impingement syndrome (M75.40) Active confirmed Problem Information temporarily unavailable Colon polyp, hyperplastic (K63.5) Active confirmed Problem Information temporarily unavailable Elevated WBCs (D72.829) Active confirmed Problem Information temporarily unavailable BP (high blood pressure) (I10) Active confirmed Problem Information temporarily unavailable Acute nontraumatic kidney injury (N17.9) Active confirmed Problem Information temporarily unavailable Chronic kidney disease due to diabetes mellitus (E11.22) Active confirmed Problem Information temporarily unavailable Diabetes mellitus (E11.9) Active confirmed Problem Information temporarily unavailable Chronic kidney disease, stage 3b (N18.32) Active confirmed Vital Signs Heart Rate 73 /min 04/18/2024 Temperature 101.2 degrees Fahrenheit 08/20/2024 Respiratory Rate 18 /min 04/18/2024 Oximetry 93 % 04/18/2024 Blood pressure diastolic 62 mm Hg 12/06/2024 Height 69 in 12/06/2024 Blood pressure systolic 122 mm Hg 12/06/2024 Weight 276.6 lbs 12/06/2024 BMI 40.84 kg/m2 12/06/2024 Procedures Procedure Date Ordered Date Performed Result Body Sit e CARDIO Echocardiogram 12/06/2024 N/A *CARDIO Stress Test - Lexiscan Nuclear 12/06/2024 N/A Encounters Encounter Location Date Provider Diagnosis [facility] [address] [place] [address] 03/29/2024 Jose Alfaro [facility] [address] [place] [address] 06/11/2024 Jose Alfaro [facility] [address] [place] [address] 09/06/2024 Jose Alfaro Encounter for other preprocedural examination Z01.818 [facility] [address] [place] [address] 09/12/2024 Jose Alfaro Pulmonary [facility] [address] [place] [address] 01/05/2024 Jay Doty [facility] [address] [place] [place] [address] 02/28/2024 Jose Alfaro [facility] [address] [place] [address] 03/26/2024 Jose Alfaro Wellness examination Z01.89 [facility] [address] [place] [place] [address] 03/28/2024 Jose Alfaro [facility] [address] [place] [address] 06/07/2024 Jose Alfaro Left ankle pain M25. 572 ; DM2 (diabetes mellitus, type 2) E11.9 ; Hypothyroidism E03.9 ; Hyperlipidemia E78.5 ; COPD (chronic obstructive pulmonary disease) J44.9 and BP (high blood pressure) I10 [facility] [place] [address] [place] [address] 04/18/2024 Jay Doty COPD (chronic obstructive pulmonary disease) J44.9 and History of tobacco abuse Z87.891 [facility] [address] [place] [address] 03/07/2024 Jose Alfaro Onychomycosis B35.1 ; DM2 (diabetes mellitus, type 2) E11.9 ; Hypothyroidism E03.9 ; Hypertension I10 and COPD (chronic obstructive pulmonary disease) J44.9 [facility] [address] [place] [place] [address] 08/03/2024 Jose Alfaro Chronic kidney disea se, stage 3b N18.32 ; DM2 (diabetes mellitus, type 2) E11.9 ; Diabetes mellitus E11.9 ; Morbid (severe) obesity due to excess calories E66.01 ; 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 ; COPD (chronic obstructive pulmonary disease) J44.9 and De Quervain's disease (tenosynovitis) M65.[address] [address] 08/20/2024 Jose Alfaro Fever R50.9 and Acut e bronchitis, unspecified organism J20.[address] [address] 09/05/2024 Jose Alfaro DM2 (diabetes mellit us, type 2) E11.9 ; Hypothyroidism E03.9 ; Hyperlipidemia E78.5 ; Hypertension I10 and Appendicitis K37 [address] [address] 12/06/2024 Jose Alfaro DM2 (diabetes mellit us, type 2) E11.9 ; History of ST elevation myocardial infarction (STEMI) I25.2 ; Hypothyroidism E03.9 ; Over weight E66.3 ; Hyperlipidemia E78.5 ; Coronary artery disease I25.10 and Hypertension I10 Assessments Encounter Date Diagnosis (ICD Code) Assessment Notes Treatment Notes Treatment Clinical Notes Section Notes 03/07/2024 Onychomycosis (ICD-10 - B35.1) treating 03/07/2024 DM2 (diabetes mellitus, type 2) (ICD-10 [...] age, time from cessation, # pack-years). 06/07/2024 Left ankle pain (ICD-10 - M25.572) 06/07/2024 DM2 (diabetes mellitus, type 2) (ICD-10 - E11.9) 09/05/2024 DM2 (diabetes mellitus, type 2) (ICD-10 - E11.9) 09/05/2024 Hypothyroidism (ICD-10 - E03.9) 08/03/2024 Chronic kidney disease, stage 3b (ICD-10 - N18.32) following labs 08/03/2024 DM2 (diabetes mellitus, type 2) (ICD-10 - E11.9) 12/06/2024 DM2 (diabetes mellitus, type 2) (ICD-10 - E11.9) 12/06/[address] elevation myocardial infarction (STEMI) (ICD-10 - I25.2) 03/26/2024 Wellness examination (ICD-10 - Z01.89) 09/06/2024 Encounter for other preprocedural examination (ICD-10 - Z01.818) 08/20/2024 Fever (ICD-10 - R50.9) 08/20/2024 Acute bronchitis, unspecified organism (ICD-10 - J20.9) Rest and drink more liquids, especially water. You may use a humidifier or vaporizer to help keep the drainage moist. Gkmf-twk-httugkt Nasal Saline may help the stuffy and runny nose. Use Ibuprofen and or Tylenol as needed for fever, chills, body aches or pain. Children 5 years old should not be given nzlg-wyg-bqhdduj cough and cold medications such as guaifenesin and dextromethorphan. If you're over age 5, you may try ubnb-ixo-szubsqt cold medications such as guaifenesin and dextromethorphan, [...] to the emergency room or call 911 12/06/2024 Hypothyroidism (ICD-10 - E03.9) 08/03/2024 Diabetes mellitus (ICD-10 - E11.9) likely up [facility] sgteroids - 112 yesterday 09/05/2024 Hyperlipidemia (ICD-10 - E78.5) 06/07/2024 Hypothyroidism (ICD-10 - E03.9) 03/07/2024 Hypothyroidism (ICD-10 - E03.9) 03/07/2024 Hypertension (ICD-10 - I10) 06/07/2024 Hyperlipidemia (ICD-10 - E78.5) 09/05/2024 Hypertension (ICD-10 - I10) 08/03/2024 Morbid (severe) obesity due to excess calories (ICD-10 - E66.01) watvhindiet 12/06/2024 Over weight (ICD-10 - E66.3) 12/06/2024 Hyperlipidemia (ICD-10 - E78.5) 08/03/2024 Chronic kidney disease due to diabetes mellitus (ICD-10 - E11.22) 09/05/2024 Appendicitis (ICD-10 - K37) 06/07/2024 COPD (chronic obstructive pulmonary disease) (ICD-10 - J44.9) 03/07/2024 COPD (chronic obstructive pulmonary disease) (ICD-10 - J44.9) 06/07/2024 BP (high blood pressure) (ICD-10 - I10) 08/03/2024 COPD (chronic obstructive pulmonary disease) (ICD-10 - J44.9) 12/06/2024 Coronary artery disease (ICD-10 - I25.10) 12/06/2024 Hypertension (ICD-10 - I10) 08/03/2024 De Quervain's disease (tenosynovitis) (ICD-10 - M65.4) 04/18/2024 Other Plan Of Treatment Pending Test Test Name Order Date CMP (COMPLETE METABOLIC PANEL) 3 CMP (COMPLETE METABOLIC PANEL) 3 CMP (COMPLETE METABOLIC PANEL) 4 HEMOGLOBIN A1C (GLYCO) 11/03/2022 HEMOGLOBIN A1C (GLYCO) 03/23/2023 HEMOGLOBIN A1C (GLYCO) 09/05/2024 INSULIN, TOTAL 11/03/2022 LIPID PANEL (CHOL/TRIG/HDL/LDL) 03/23/20 23 LIPID PANEL (CHOL/TRIG/HDL/LDL) 11/04/19 23 LIPID PANEL (CHOL/TRIG/HDL/LDL) 09/06/19 25 CBC WITH DIFF 11/03/2022 CBC WITH DIFF 03/23/2023 PSA, PROSTATE-SPECIFIC ANTIGEN 3 PSA, PROSTATE-SPECIFIC ANTIGEN 3 URIC ACID 11/03/2022 CT Abdomen and Pelvis w/contrast * 07/19 T3 FREE, T4 FREE and TSH 03/26/2024 CARDIO Echocardiogram 12/06/2024 PROSTATIC SPEC ANT 11/10/2022 FECAL OCCULT BLOOD 03/26/2024 High Sensitivity Troponin 12/06/2024 BNP 12/06/2024 CBC AUTO DIFF 12/06/2024 PROF 14(COMP METB) 12/06/2024 CT ABD and PELV W CON 09/05/2024 XR ANKLE LT MIN 3 V 06/07/2024 THYROID PANEL (T4/TSH/FREE T3) 5 THYROID PANEL (T4/TSH/FREE T3) 3 THYROID PANEL (T4/TSH/FREE T3) 3 Free PSA 03/26/2024 PSA, SCREENING 09/05/2024 XR wrist LT min 3V 08/03/2024 *CARDIO Stress Test - Lexiscan Nuclear 0 12/06/2024 CMP (COMP MET BARROW) w/eGFR CKD-EPI 2024 CBC WITH DIFF 09/05/2024 Next Appt Details Provider Name:Jay Doty, 04/23/2025 09:00:00 AM, [address] [place], [address], Insurance Providers Payer Name Payer Address Payer Phone Subscriber Number Group Number Insured Name Patient Relationship to Insured Coverage Start Date Coverage End Date [employer] [address] [address] [place] [address] [id number] Gladys Smyth Self - patient is the [...] 10/18/23 drained appendix 2023 carpal tunnel release Kidney stone blast, removal- multiple Prostate Scraped Heart stent Hernia Repair- mesh Hospitalization History Reason Date(Month/Year) Appendicitis 06/2023 Kidney Failure 08/19
--- OUTSIDE RECORDS SUMMARY | 2024-12-12 08:54 | XMS_ITS | Encounter Summary ---
Author Organization [facility] Address [address] [place] [address] Care Team Providers Care Pony Worker Name Role Phone Jose Danielson MD Primary Care Provider [phone] Reason for Visit * Reason Comments Med Refill Encounter Details Date Type Department Care Team (Late st Contact Info) Description 03/18/[address] [facility] [address] [place] [phone] Gato Huynh MD [address] [facility] [address] [facility] [place] [id number] Essential hypertension (Primary Dx) Social History Tobacco [...] hypertension documented in this encounter Care Teams Pony Worker Relationship Specialty Start Date End Date Jose Danielson MD [address] [place] [address] PCP - General 10/14/22 documented as of this encounter
--- OUTSIDE RECORDS SUMMARY | 2024-12-12 08:54 | XMS_ITS | Clinical Summary ---
Author Organization [facility] Address [address] [place] [address] Care Team Providers Care Exchange Engineer Name Role Phone Jose Danielson MD Primary Care Provider [phone] Allergies Active Allergy Reactions Criticality Noted Date [...] hest pain, unspecified type,Coronary artery disease involving [place] coronary artery of [place] heart without angina pectoris TAKE 2 TABLETS BY MOUTH IN THE MORNING DO NOT CRUSH OR CHEW 180 tablet 3 12/03/20 24 Active ranolazine (Ranexa) 500 mg 12 hr tabletIndications:C oronary artery disease involving [place] coronary artery of [place] heart without angina pectoris,Stable angina pectoris due [...] mg SL tabletIndications:C oronary artery disease involving [place] coronary artery of [place] heart without angina pectoris DISSOLVE 1 TABLET [...] Risk 10.1 % 30-day risk of , CO, or cardiac arrest EKG at last visit [...] 05/16/2013 Type 2 diabetes mellitus without complication Family History Medical History Relation Name Comments [...] Zoster Vaccines Completed 02/05/2020, 12/06/2019 Pneumococcal Vaccine: 50+ Years Completed 05/02/2023, 04/05/2017 Influenza Vaccine Completed [...] on patient's age to complete this topic Insurance [employer] MED[employer]ARE Care Teams Exchange Engineer Relationship Specialty Start Date End Date Jose Danielson MD [address] [facility] [place], [place] [id number] PCP - General 10/14/22
--- NOTE | 2024-12-12 09:00 | NM_ITS ---
Patient Name: GLADYS SMYTH MR#: [id number] : 1940 Exam Date: 12/12/2024 Ordering Doctor: DR TRAY ALFARO . RADIOLOGY REPORT PROCEDURE: NM LIZZY PERF SPECT REST STR COMPARISON: None. INDICATIONS: CORONARY ARTERY DISEASE TECHNIQUE: Exam Description: Stress/Rest two day protocol gated SPECT Rest Imagin.8 mCi Tc-99m Cardiolite IV on 12/13/2024 Stress Imaging 25.5 mCi Tc-99m Cardiolite IV on 12/12/2024 Exercise Protocol: 0.4 mg Lexiscan given IV Heart Rate (bpm): Rest: 65 Max: 76 PMHR: 55 Blood Pressure: Rest: 164/92 Max: 182/86 Symptoms: Rest and peak stress ECG findings were pending and the EKG portion of the study was pending per attending physician RUST . For more details please see separate cardiac stress test report. FINDINGS: QUALITY OF STUDY: Good PERFUSION DEFECT: LOCATION: Inferior SIZE: Medium SEVERITY: Mild to moderate TYPE: Reversible WALL MOTION: Normal LV SIZE: 96 mL. TID / TCD: 0.8 LVEF: Calculated EF 75%. SUMMARY: Abnormal myocardial perfusion imaging study CONCLUSION: Abnormal myocardial perfusion stress test showing evidence of inferior ischemia Normal left ventricle systolic function, ejection fraction 75% No evidence of transit ischemic dilatation, TID 0.8 EKG portion of stress test is reported separate Dictated by: Mundo Lee MD on 12/18/2024 at 15:38 Approved by: Mundo Lee MD on 12/18/2024 at 15:42
--- NOTE | 2024-12-12 10:05 | PC.NURSE ---
Nursing Note Cardiac Stress Test Reviewed: Medication, allergies and patient history reviewed. Stress Test: [x ] Patient tolerated stress test well. [ ] Patient unable to tolerate walking on treadmill. Switched to Lexiscan stress test. [x ] No chest pain noted per patient [ ] Chest pain that resolved prior to leaving stress lab. [ x] No dyspnea noted. [ ] Dyspnea that resolved prior to leaving stress lab. [ x] Patient left stress lab asymptomatic and hemodynamically stable. [ ] Patient taken to the Emergency Room due to non-resolving symptoms following stress test. [ ] Patient achieved target heart rate. [ ] Patient unable to achieve target heart rate. [ ] Aminophylline administered as reversal agent to Lexiscan (Regadenoson). [ ] Nitro administered. Nursing Comments:Pt had Lexiscan test done. Tolerated well. No symptoms per pt. Pt ambulated to cafeteria for breakfast prior to images.
[2024-12-12] MEDS: REGADENOSON 0.4 MG/5 ML SYRINGE IV (10:07)
--- NOTE | 2024-12-17 18:40 | P.STRESS_ITS ---
Stress Test Stress Test Allergies Allergy/AdvReac Type Severity Reaction Status Date / Time ciprofloxacin (From Cipro) Allergy Intermediate itching Verified 10/18/23 10:50 Penicillins Allergy Intermediate itching Verified 10/18/23 10:50 Requesting physician: Jose Danielson Procedure: This was a Lexiscan stress test with myocardial perfusion imaging performed at the [facility] on 12/12/2024. Intravenous line was secured. The patient was attached to electrocardiographic monitoring. Baseline vital signs and ECG were obtained. Lexiscan 0.4 mg was administered intravenously followed by administration of Cardiolite. The patient then went on to obtain myocardial perfusion imaging. Stress send heart rate was 65 bpm and peak heart rate was 76 bpm. Resting blood pressure was 164/92 and peak blood pressure was 182/86. General Information: Reason for Stress Test: Chest pain, shortness of breath. Cardiac History and Risk Factors: Myocardial infarction, coronary stents. Resting 12 - Lead Electrocardiogram: Sinus rhythm with first-degree AV block. Stress Test: Protocol: Pharmacologic stress with Lexiscan. Exercise Capacity: Not assessed. Blood Pressure Response: Resting hypertension. Rhythm: Sinus with no arrhythmias. ST - Response: No ischemic ECG changes seen. Patient Response: No symptoms. Interpretation: 1. No evidence of ischemic ECG changes seen following infusion of Lexiscan. 2. Myocardial perfusion images will be reported separately.
== END 2024-12-12 08:49 | disposition home or self-care (01) ==
LOC: CARD 08:49
PROVIDERS: PCP Family Medicine; Visit Provider Family Medicine
DX: I25.10 Atherosclerotic heart disease of native coronary artery without angina pectoris (principal); R94.39 Abnormal result of other cardiovascular function study
CPT/HCPCS: 78452; 93017; A9500; J2785

== ENCOUNTER 2024-12-13 07:49 | Outpatient (OUT) | payer MEDICARE, SELFPAY ==
--- OUTSIDE RECORDS SUMMARY | 2024-09-06 05:15 | XMS_ITS ---
Author Organization The [facility] in [place] Address [address] [place] [address] Care Team Providers Care Safety Supervisor Name Role Phone Jose Danielson Primary Care Provider [phone] Results Component Value Reference Range Notes CREATININE Reviewed date:09/12/2024 07:49:34 PM Interpretation: Performing Lab: Notes/Report: [facility] , Creatinine 1.71 0.70-1.30 mg/dL Estimated GFR ( Yana 47 >=60 mL/min/1.73m 2 Estimated GFR (Non- Lisa 39 >=60 mL/min/1.73m 2 Performing Lab: see note ML - [facility] LB REASON FOR VISIT lab Encounters Encounter Location Date Provider Diagnosis [facility] [address] [facility] [place] [address] 09/06/2024 Jose Danielson Encounter for other preprocedural examination Z01.818 Assessments Encounter Date Diagnosis (ICD Code) Assessment Notes Treatment Notes Treatment Clinical Notes Section Notes 09/06/2024 Encounter for other preprocedural examination (ICD-10 - Z01.818) Plan Of Treatment Next Appt Details Provider Name:Jay Doty, 04/23/2025 09:00:00 AM, [address] [place], [address], Progress Notes * Victorino SMYTHDOB:[birth year] (84 yo M)Acc No.[id number]:09/06/2024 Patient: Victorino GUEVARA :1940 A ge:84 Y S ex:Male Address:[address] [place] [address], [place], [address] Subjective: * Chief Complaints: * L ab * Medical History: * Surgical History: * Hospitalization/Major Diagno stic Procedure: * Medications: Objective: * Vitals: * Physical Examination: Assessment: * Assessment: 1. E ncounter for other preprocedural examination - Z01.818 (Primary) Plan: * Treatment: * Procedure Codes: * true * Date: Generated for Mini javier/Eve/Benniesmitting on: 0 12/13/2024 07:57 AM EDT
--- OUTSIDE RECORDS SUMMARY | 2024-09-12 15:49 | XMS_ITS ---
Author Organization [facility] [place] Address [address] [place] [address] Care Team Providers Care Manager Transfusion Name Role Phone Jose Danielson Primary Care Provider REASON FOR VISIT appendix Encounters Encounter Location Date Provider Diagnosis [facility] [address] [facility] [place] [address] 09/12/2024 Jose Danielson Plan Of Treatment Next Appt Details Provider Name:Jay Doty, 04/23/2025 09:00:00 AM, [address] [place], [id number], Progress Notes * SMYTHAristidesesDOB:[birth year] (84 yo M)Acc No.[id number]:09/12/2024 Patient: Aristides GUEVARAard :1940 A ge:84 Y S ex:Male Address:[address] [place] [address], [id number] * true * Date: Generated for Printi ng/Faxing/eTransmitting on: 0 12/13/2024 07:56 AM EDT
--- OUTSIDE RECORDS SUMMARY | 2024-12-06 06:45 | XMS_ITS ---
Author Organization [facility] in [place] Address [address] [place] [address] Care Team Providers Care Cam Specialist Name Role Phone Jose Danielson Primary Care [...] 90 Active Ketoconazole 2 % 1 application School Occupational Therapist ally Once a day Active Januvia 100 [...] N/A Encounters Encounter Location Date Provider Diagnosis [facility] [address] [place] [address] 12/06/2024 Jose Danielson DM2 ([facility], type 2) E11.9 ; History of [...] Name:Jay Doty, 04/23/2025 09:00:00 AM, [address] [place], [address], Progress Notes * Victorino SMYTHDOB:[birth year] (84 yo M)Acc No.[id number]:12/06/2024 Progress Note Patient: Victorino GUEVARA Provider: Alcira Danielson ([facility])MD :1940 A ge:84 Y S ex:Male Date:12/06/2024 Address:[phone] Check In:10:32 AM ESTCheck O ut:11:35 [...] * Active Problem List E11.9 DM2 (diabetes [facility], type 2) Modified On:08/11/2023 Status:confirmed [...] tablet Orally Twice a day Spiriva Respimat(Tiotropium [place] Monohydrate) 2.5 MCG/ACT Aerosol Solution 2 puffs [...] Orally Twice a day Taking Spiriva Respimat(Tiotropium [place] Monohydrate) 2.5 MCG/ACT Aerosol Solution 2 puffs [...] 12/06/2024 Generated for Bienvenidoi ng/Eve/eTransmitting on: 0 12/13/2024 07:56 AM EDT History and Physical Notes * [...]
--- OUTSIDE RECORDS SUMMARY | 2024-12-13 07:57 | XMS_ITS | Clinical Summary ---
Author Organization [facility] Address [address] [place] [address] Care Team Providers Care Implant Polisher Name Role Phone Jose Danielson MD Primary Care Provider [phone] Allergies Active Allergy Reactions Criticality Noted Date [...] hest pain, unspecified type,Coronary artery disease involving [place] coronary artery of [place] heart without angina pectoris TAKE 2 TABLETS BY MOUTH IN THE MORNING DO NOT CRUSH OR CHEW 180 tablet 3 12/03/20 24 Active ranolazine (Ranexa) 500 mg 12 hr tabletIndications:C oronary artery disease involving [place] coronary artery of [place] heart without angina pectoris,Stable angina pectoris due [...] mg SL tabletIndications:C oronary artery disease involving [place] coronary artery of [place] heart without angina pectoris DISSOLVE 1 TABLET [...] topic Insurance [employer] MED[employer]ARE Care Teams Implant Polisher Relationship Specialty Start Date End Date Jose Danielson MD [address] [facility] [place], [place] [phone] PCP - General 10/14/22
--- OUTSIDE RECORDS SUMMARY | 2024-12-13 07:57 | XMS_ITS | Referral Summary ---
Author Organization [facility] Address [address] [place] [address] Care Team Providers Care Coin Machine Operator Name Role Phone Jose Danielson MD Primary Care Provider [phone] Allergies Active Allergy Reactions Criticality Noted Date [...] hest pain, unspecified type,Coronary artery disease involving [place] coronary artery of [place] heart without angina pectoris TAKE 2 TABLETS BY MOUTH IN THE MORNING DO NOT CRUSH OR CHEW 180 tablet 3 12/03/20 24 Active ranolazine (Ranexa) 500 mg 12 hr tabletIndications:C oronary artery disease involving [place] coronary artery of [place] heart without angina pectoris,Stable angina pectoris due [...] mg SL tabletIndications:C oronary artery disease involving [place] coronary artery of [place] heart without angina pectoris DISSOLVE 1 TABLET [...] file Insurance [employer] MED[employer]ARE Care Teams Coin Machine Operator Relationship Specialty Start Date End Date Jose Danielson MD [address] [id number] PCP - General 10/14/22
--- OUTSIDE RECORDS SUMMARY | 2024-12-13 07:57 | XMS_ITS | Clinical Summary ---
Author Organization [facility] Address [address] [place] [address] Phone Care Team Providers Care Door Liner Helper Name Role Phone Unavailable Primary Care Provider [...]
--- OUTSIDE RECORDS SUMMARY | 2024-12-13 07:57 | XMS_ITS | Patient Health Record ---
Author Organization [facility] in [place] Address [address] [place] [address] Care Team Providers Care Food Service Tray Attendant Name Role Phone Jose Alfaro Primary Care Provider [phone] Jay Doty Kamar [phone] Allergies Allergen (clinical drug ingredient) Drug/Non Drug Allergy documented on EMR Reaction Allergy Type Onset Date Status ciprofloxacin Ciprofloxacin Unknown Drug Allergy Active Penicillin Unknown Drug Allergy Active Results Component Value Reference Range Notes MAGNESIUM Reviewed date:12/14/2023 07:06:29 PM Interpretation: Performing Lab: Notes/Report: [facility] , Magnesium 1.7 1.8-2.4 mg/dL Performing Lab: see note ML - [facility] LB UA RANDOM W or MICROSCOPIC Reviewed date:12/14/2023 07:06:29 PM Interpretation: Performing Lab: Notes/Report: [facility] , Color Urine YELLOW YELLOW Clarity Urine CLEAR CLEAR Specific [place] Urine 1.015 1.005-1.025 pH Urine 5.5 5.0-9.0 [...] Performing Lab: see note ML - [facility] LB URIC ACID SERUM Reviewed date:12/14/2023 07:06:29 PM Interpretation: Performing Lab: Notes/Report: [facility] , Uric Acid 6.4 3.5-7.2 mg/dL Performing Lab: see note ML - [facility] LB URINE T PROTEIN CREAT RATIO Reviewed date:12/14/2023 07:06:29 PM Interpretation: Performing Lab: Notes/Report: [facility] , Total Protein Urine Random 10.9 <=11.9 mg/dL Creatinine Urine Random 71.05 20.00-30 0.00 mg/dL Protein Creatinine Ratio Urine 0.15 Performing Lab: see note ML - [facility] LB FREE T3 Reviewed date:03/28/2024 09:25:13 PM Interpretation: Performing Lab: Notes/Report: [facility] , Free T3 2.43 2.18-3.98 pg/mL Performing Lab: see note ML - [facility] LB FREE T4 Reviewed date:03/28/2024 09:25:13 PM Interpretation: Performing Lab: Notes/Report: [facility] , Free T4 1.12 0.76-1.46 ng/dL Performing Lab: see note - [facility] LB PROF 14(COMP METB) Reviewed date:03/28/2024 09:25:13 PM Interpretation: Performing Lab: Notes/Report: [facility] , Sodium 138 136-145 mmol/L Potassium [...] 1.0 Performing Lab: see note ML - [facility] LB TSH Reviewed date:03/28/2024 09:25:13 PM Interpretation: Performing Lab: Notes/Report: [facility] , Thyroid Stimulating Hormone 0.837 0.358-3.740 uIU/mL Performing Lab: see note ML - [facility] LB CT abdomen pelvis w con Reviewed date:09/12/2024 07:49:34 PM Interpretation: Performing Lab: Notes/Report: Source Facility: [place] [address] [place] [address] CT Scan Report Signed Patient: GLADYS SMYTH MR#: [id number] : 1940 Acct:[id number] Age/Sex: 84 / M ADM Date: 09/12/24 Loc: LAB Attending Dr: Tray Alfaro M.D. Ordering Physician: Tray Alfaro M.D. Date of Service: 09/12/24 Procedure(s): CT abdomen pelvis w con Accession Number(s): [id number] cc: Tray Alfaro M.D. [place] [address] Patient Name: GLADYS SMYTH MRN: [facility]:[id number] date: 1940 Sex: M Assigned Patient Location: LAB Current Patient Location: LAB Accession/Order Number: [id number] Exam Date: 09/12/2024 12:26 Report Date: 09/12/2024 [...] Perez Jr., D.O.09/12/2024 12:33 PM Dictation Location: [place] [address] Electronically authenticated by: [id number] Y Date: 09/12/2024 12:33 Dictated By: Ifeanyi Perez M.D. Signed By: 09/12/24 1236 DD/ 1233 TD/TT: Belt Operator: [address] [address] [address] Scan Report Signed Patient: GLADYS SMYTH MR#: [id number] : 1940 Acct:[id number] Age/Sex: 84 / M ADM Date: 09/12/24 Loc: LAB Attending Dr: Shereen Alfaro M.D. Ordering Physician: Tray Alfaro M.D. Date of Service: 09/12/24 Procedure(s): CT abdomen pelvis w con Accession Number(s): [id number] cc: Tray Alfaro M.D. [address] [address] Patient Name: GLADYS SMYTH MRN: [id number]:[id number] date: 1940 Sex: M Assigned Patient Location: LAB Current Patient Location: LAB Accession/Order Numb er: [id number] Exam Date: 09/12/2024 12:26 Report Date: 09/12/2024 [...] excluded. Impression dictated by: Ifeanyi Perez Jr., DreadOManohar09/12/2024 12:33 PM Dictation Location: [place] [address] Electronically authenticated by: [id number] Y Date: 09/12/2024 12:33 Dictated By: Ifeanyi Perez M.D. Signed By: 09/12/24 1236 DD/ 1233 TD/TT: Belt Operator: SHMUEL RANDOM W or MICROSCOPIC Reviewed date:11/27/2024 04:11:10 PM Interpretation: Performing Lab: Notes/Report: [facility] , Color Urine YELLOW YELLOW Clarity Urine CLEAR CLEAR Specific [place] Urine 1.025 1.005-1.025 pH Urine 6.0 5.0-9.0 [...] #/LPF Performing Lab: see note ML - [facility] CBC no Diff (Hemogram) Reviewed date:05/30/2024 07:24:41 PM Interpretation: Performing Lab: Notes/Report: [facility] , White Blood Count 6.8 4.0-11.0 [...] 9.5-13.5 fL Performing Lab: see note - [facility] VITAMIN D 25 [place] Reviewed date:05/30/2024 07:24:41 PM Interpretation: Performing Lab: Notes/Report: [facility] , Vitamin D 64.6 <20 ng/mL Vit D deficient 20-<30 ng/mL Vit D insufficient 30-100 ng/mL Vit D sufficient >100 ng/mL Potential Toxicity Performing Lab: see note ML - [facility] CBC no Diff (Hemogram) Reviewed date:11/27/2024 04:11:10 PM Interpretation: Performing Lab: Notes/Report: [facility] , White Blood Count 6.0 4.0-11.0 [...] fL Performing Lab: see note ML - [facility] LB URINE T PROTEIN CREAT RATIO Reviewed date:05/30/2024 07:24:41 PM Interpretation: Performing Lab: Notes/Report: [facility] , Total Protein Urine Random 16.5 <=11.9 mg/dL Creatinine Urine Random 84.23 20.00-30 0.00 mg/dL Protein Creatinine Ratio Urine 0.20 Performing Lab: see note - [facility] LB URIC ACID SERUM Reviewed date:05/30/2024 07:24:41 PM Interpretation: Performing Lab: Notes/Report: [facility] , Uric Acid 7.5 3.5-7.2 mg/dL Performing Lab: see note - [facility] LB UA RANDOM W or MICROSCOPIC Reviewed date:05/30/2024 07:24:41 PM Interpretation: Performing Lab: Notes/Report: [facility] , Color Urine LT. YELLOW YELLOW Clarity Urine CLEAR CLEAR Specific [place] Urine 1.015 1.005-1.025 pH Urine 6.0 5.0-9.0 [...] #/LPF Performing Lab: see note ML - [facility] LB RENAL FUNCTION PANEL Reviewed date:05/30/2024 07:24:41 PM Interpretation: Performing Lab: Notes/Report: [facility] , Sodium 144 136-145 mmol/L Potassium [...] g/dL Performing Lab: see note ML - [facility] LB MAGNESIUM Reviewed date:05/30/2024 07:24:41 PM Interpretation: Performing Lab: Notes/Report: [facility] , Magnesium 1.9 1.8-2.4 mg/dL Performing Lab: see note ML - [facility] LB Occult Blood* Reviewed date:03/29/2024 08:37:00 PM Interpretation: Performing Lab: Notes/Report: [facility] , Occult Blood Positive Performing Lab: see note - [facility] LB PSA Total+% Free Reviewed date:03/29/2024 08:37:00 PM Interpretation: Performing Lab: Notes/Report: [facility] , Prostate Specific Ag 6.2 0.0-4.0 ng/mL Brenda ECLIA methodology. According to the [place] [employer], Serum PSA should decrease and [...] any other population of men. Performed at: [facility] [address] [id number] Aerospace Physiological Technician: Lee Bob PhD, Phone: [phone] Performing Lab: see note [facility] LB PTH, Intact Reviewed date:12/15/2023 12:34:34 PM Interpretation: Performing Lab: Notes/Report: [facility] , PTH, Intact 50 15-65 pg/mL Performed at: [facility] [address] [id number] Aerospace Physiological Technician: Lee Bob PhD, Phone: [phone] Performing Lab: see note [facility] LB CBC no Diff (Hemogram) Reviewed date:12/14/2023 07:06:29 PM Interpretation: Performing Lab: Notes/Report: [facility] , White Blood Count 6.2 4.0-11.0 [...] 9.5-13.5 fL Performing Lab: see note - [facility] VITAMIN D 25 [place] Reviewed date:12/14/2023 07:06:29 PM Interpretation: Performing Lab: Notes/Report: [facility] , Vitamin D 66.1 <20 ng/mL Vit D deficient 20-<30 ng/mL Vit D insufficient 30-100 ng/mL Vit D sufficient >100 ng/mL Potential Toxicity Performing Lab: see note ML - [facility] RENAL FUNCTION PANEL Reviewed date:12/14/2023 07:06:29 PM Interpretation: Performing Lab: Notes/Report: [facility] , Sodium 140 136-145 mmol/L Potassium [...] g/dL Performing Lab: see note ML - [facility] LB IRON AND TIBC Reviewed date:12/14/2023 07:06:29 PM Interpretation: Performing Lab: Notes/Report: [facility] , Iron 101.0 65.0-175.0 ug/dL Total Iron Binding Capacity 279.0 250.0-450.0 ug/dL Percent Iron Saturation 36.2 Performing Lab: see note - [facility] FERRITIN Reviewed date:12/14/2023 07:06:29 PM Interpretation: Performing Lab: Notes/Report: [facility] , Ferritin 111.0 26.0-388.0 ng/mL Performing Lab: see note ML - [facility] LB CREATININE Reviewed date:09/12/2024 07:49:34 PM Interpretation: Performing Lab: Notes/Report: [facility] , Creatinine 1.71 0.70-1.30 mg/dL Estimated GFR ( Yana 47 >=60 mL/min/1.73m 2 Estimated GFR (Non- Lisa 39 >=60 mL/min/1.73m 2 Performing Lab: see note - [facility] LB LIPID PROFILE Reviewed date:03/28/2024 09:25:13 PM Interpretation: Performing Lab: Notes/Report: [facility] , Triglycerides 85 <=150 mg/dL Cholesterol [...] >11.0 HIGH RISK Performing Lab: see note - [facility] LB GLYCOHEMOGLOBIN A1C Reviewed date:03/28/2024 09:25:13 PM Interpretation: Performing Lab: Notes/Report: [facility] , Glycohemoglobin A1C 6.9 4.5-6.2 % ADA RECOMMENDED LIMIT 4.0 - 6.0 ADA THERAPEUTIC TARGET < 7.0 ACTION SUGGESTED > 7.0 Estimated Average Glucose 151 Performing Lab: see note - [facility] LB CBC AUTO DIFF Reviewed date:03/28/2024 09:25:13 PM Interpretation: Performing Lab: Notes/Report: [facility] , White Blood Count 6.3 4.0-11.0 [...] 3/uL Performing Lab: see note ML - [facility] LB COVID-19, Flu A+B IH Reviewed date:08/20/2024 02:02:41 PM Interpretation: Performing Lab: Notes/Report: COVID - FLU A + FLU B - Control + URINE T PROTEIN CREAT RATIO Reviewed date:11/27/2024 04:11:10 PM Interpretation: Performing Lab: Notes/Report: [facility] , Total Protein Urine Random 33.1 <=11.9 mg/dL Creatinine Urine Random 179.73 20.00-30 0.00 mg/dL Protein Creatinine Ratio Urine 0.18 Performing Lab: see note ML - [facility] LB URIC ACID SERUM Reviewed date:11/27/2024 04:11:10 PM Interpretation: Performing Lab: Notes/Report: [facility] , Uric Acid 6.8 3.5-7.2 mg/dL Performing Lab: see note ML - [facility] RENAL FUNCTION PANEL Reviewed date:11/27/2024 04:11:10 PM Interpretation: Performing Lab: Notes/Report: [facility] , Sodium 145 136-145 mmol/L Potassium [...] Performing Lab: see note ML - [facility] LB MAGNESIUM Reviewed date:11/27/2024 04:11:10 PM Interpretation: Performing Lab: Notes/Report: [facility] , Magnesium 1.8 1.8-2.4 mg/dL Performing Lab: see note ML - [facility] LB US renal BI Reviewed date:06/11/2024 02:13:25 PM Interpretation: Performing Lab: Notes/Report: Source Facility: [place] [address] [place] [address] Ultrasound Report Signed Patient: GLADYS SMYTH MR#: [id number] : 1940 Acct:[id number] Age/Sex: 83 / M ADM Date: 06/11/24 Loc: US Attending Dr: Srinivas Olivares M.D. Ordering Physician: Srinivas Olivares M.D. Date of Service: 06/11/24 Procedure(s): US renal BI Accession Number(s): [id number] cc: Srinivas Olivares M.D.; Tray Alfaro M.D. [place] [address] Patient Name: GLADYS SMYTH MRN: [id number] date: 1940 Sex: M Assigned Patient Location: Current Patient Location: US Accession/Order Number: [id number] Exam Date: 06/11/2024 07:00 Report Date: 06/11/2024 [...] Signed By: 06/11/24 0751 DD/ 0748 TD/TT: Belt Operator: [place] [address] Ultrasound Report Signed Patient: GLADYS SMYTH MR#: [id number] : 1940 Acct:[id number] Age/Sex: 83 / M ADM Date: 06/11/24 Loc: US Attending Dr: Lisa Maza Ordering Physician: Srinivas Olivares M.D. Date of Service: 06/11/24 Procedure(s): US shar al BI Accession Number(s): [id number] cc: Srinivas Olivares M.D; Tray Alfaro M.D. [place] [address] Patient Name: GLADYS SMYTH MRN: [id number] date: 1940 Sex: M Assigned Patient Location: US Current Patient Location: US Accession/Order Numb er: [id number] Exam Date: 07:00 Report Date: 06/11/2024 07:48 [...] Left renal cortical atrophy Electronically authenticated by: TYELR MONSIVAIS Date: 06/11/2024 07:48 Dictated By: Riley Monsivais M.D. Signed By: 06/11/24 0751 DD/ 0748 TD/TT: Belt Operator: XR ankle LT min 3V Reviewed date:06/11/2024 02:13:25 PM Interpretation: Performing Lab: Notes/Report: Source Facility: [place] [address] XRay Report Signed Patient: GLADYS SMYTH MR#: [id number] : 1940 Acct:[id number] Age/Sex: 83 / M ADM Date: 06/07/24 Loc: RAD Attending Dr: Tray Alfaro M.D. Ordering Physician: Tray Alfaro M.D. Date of Service: 06/07/24 Procedure(s): XR ankle LT min 3V Accession Number(s): [id number] cc: Tray Alfaro M.D. [place] [address] Patient Name: GLADYS SMYTH MRN: [id number] date: 1940 Sex: M Assigned Patient Location: [facility] Current Patient Location: Accession/Order Number: [id number] Exam Date: 06/07/2024 12:17 Report Date: 06/11/2024 [...] M.D. Signed By: 06/11/24716 DD/ 3 TD/TT: Belt Operator: [place] [address] XRay Report Signed Patient: GLADYS SMYTH MR#: [id number] : 1940 Acct:[id number] Age/Sex: 83 / M ADM Date: 06/07/24 Loc: RAD Attending Dr: Shereen Alfaro M.D. Ordering Physician: Tray Alfaro M.D. Date of Service: 06/07/24 Procedure(s): XR ank le LT min 3V Accession Number(s): [id number] cc: Tray Alfaro M.D. [place] [id number] Patient Name: GLADYS SMYTH MRN: [id number] date: 1940 Sex: M Assigned Patient Location: [facility] Current Patient Location: US Accession/Order Numb er: [id number] Exam Date: 12:17 Report Date: 06/11/2024 07:14 [...] M.D. Signed By: 06/11/24716 DD/ 3 TD/TT: Belt Operator: PTH, Intact Reviewed date:05/31/2024 12:45:04 PM Interpretation: Performing Lab: Notes/Report: [facility] , PTH, Intact 61 15-65 pg/mL Performed at: [address] [id number] Aerospace Physiological Technician: Lee Bob PhD, Phone: [phone] Performing Lab: see note - [facility] LB VITAMIN D 25 [place] Reviewed date:11/27/2024 04:11:10 PM Interpretation: Performing Lab: Notes/Report: [facility] , Vitamin D 70.4 <20 ng/mL Vit D deficient 20-<30 ng/mL Vit D insufficient 30-100 ng/mL Vit D sufficient >100 ng/mL Potential Toxicity Performing Lab: see note - [facility] LB PTH, Intact Reviewed date:11/28/2024 09:18:57 PM Interpretation: Performing Lab: Notes/Report: [facility] , PTH, Intact 40 15-65 pg/mL Performed at: [address] [id number] Aerospace Physiological Technician: eLe Bob PhD, Phone: [phone] Performing Lab: see note - [facility] LB Reason For Referral No Information Medications Medication [...] 90 Active Ketoconazole 2 % 1 application Log Chain Worker ally Once a day Active Januvia 100 [...] Status Comme nts Arexvy Unknown 03/06/2024 Administered [employer] Syringe Pre-Filled 30 mcg/0.3 mL Unknown 03/06/2024 Administered Flu, Fluad (5384-2851) (35040) 65 yrs+, single-dose syringe IM Intramuscular 03/23/2023 Administered Flu, Fluad (91643) 65 yrs + High Dose Seasonal (6936-5985) Unknown 03/06/2024 Administered Pneumococcal (Prevnar 13) Unknown [...] Status Risk Notes Problem Chronic kidney disease (157363212) Chronic kidney disease, unspecified (N18.9) Active confirmed Problem Morbid obesity (disorder) (558310621) Morbid (severe) obesity due to excess calories (E66.01) Active confirmed Problem Hypocalcemia (4928613) Hypocalcemia (E83.51) Active confirmed Problem Disorder of prostate (88988766) Disorder of prostate, unspecified (N42.9) Active confirmed Problem Weakness (83913686) Weakness (R53.1) Active confirmed Problem Onychomycosis caused by dermatophyte (956198115) OM (onychomycosis) (B35.1) Active confirmed Problem Hyperlipidemia (67161640) Hyperlipidemia (E78.5) Active confirmed Problem Hypertension (93696640) Hypertension (I10) Active confirmed Problem COPD - Chronic obstructive pulmonary disease (66338222) COPD (chronic obstructive pulmonary disease) (J44.9) Active confirmed Problem Hypothyroidism (51252611) Hypothyroidism (E03.9) Active confirmed Problem Carpal tunnel syndrome (64007498) Carpal tunnel syndrome (G56.00) Active confirmed Problem Coronary artery disease (68630170) CAD (coronary artery disease) (I25.10) Active confirmed Problem Coronary artery disease (27590113) Coronary artery disease (I25.10) Active confirmed Problem Left ventricular hypertrophy (70175024) Left ventricular hypertrophy (I51.7) Active confirmed Problem Diabetes mellitus type 2 (disorder) (48112945) DM2 (diabetes mellitus, type 2) (E11.9) Active confirmed Problem Nephrolithiasis (38928445) Nephrolithiasis (N20.0) Active confirmed Problem Right lower quadrant pain (854335655) Right lower quadrant abdominal pain (R10.31) Active confirmed Problem Acquired hypothyroidism (117698830) Acquired hypothyroidism (E03.9) Active confirmed Problem Appendicitis (01909705) Appendicitis (K37) Active confirmed Problem Obstructive uropathy (3689134) Obstructive uropathy (N13.9) Active confirmed Problem Pre-surgery evaluation (228230028) Pre-op exam (Z01.818) Active confirmed Problem Diverticulitis (65155423) Diverticulitis (K57.92) Active confirmed Problem Hemorrhoids (35071220) Hemorrhoids (K64.9) Active confirmed Problem Pyelonephritis (47765115) Pyelonephritis (N12) Active confirmed Problem Arthralgia of the ankle and/or foot (893575620) Left ankle pain (M25.572) Active confirmed Problem Acute sinusitis (87239884) Acute sinus infection (J01.90) Active confirmed Problem Benign prostatic hyperplasia (603184393) Benign prostatic hyperplasia (N40.0) Active confirmed Problem Overweight (997197992) Over weight (E66.3) Active confirmed Problem Dyshidrotic eczema (037330605) 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) Active confirmed Problem Hydronephrosis (85368788) Hydronephrosis (N13.30) Active confirmed Problem Ex-tobacco user (finding) (417816599) History of tobacco abuse (Z87.891) Active confirmed Problem Old myocardial infarction (5985890) History of ST elevation myocardial infarction (STEMI) (I25.2) Active confirmed Problem Adenocarcinoma of prostate (724363016) Adenocarcinoma of prostate (C61) Active confirmed Problem Cholesteatoma (461569) Cholesteatoma (H71.90) Active confirmed Problem Shoulder impingement syndrome (597385469) Shoulder impingement syndrome (M75.40) Active confirmed Problem Benign neoplasm of colon (06928518) Colon polyp, hyperplastic (K63.5) Active confirmed Problem Leukocytosis (942122043) Elevated WBCs (D72.829) Active confirmed Problem Essential hypertension (04985473) BP (high blood pressure) (I10) Active confirmed Problem Acute nontraumatic kidney injury (192262372175990) Acute nontraumatic kidney injury (N17.9) Active confirmed Problem 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 [address] [place] [address] 02/28/2024 Jose Alfaro [facility] [address] [place] [address] 03/26/2024 Jose Alfaro Wellness examination Z01.89 [facility] [address] [place] [address] 03/28/2024 Jose Alfaro [facility] [address] [place] [address] 03/29/2024 Jose Alfaro [facility] [address] [place] [address] 06/11/2024 Jose Alfaro [facility] [address] [place] [address] 09/06/2024 Jose Alfaro Encounter for other preprocedural examination Z01.[address] [address] 09/12/2024 Jose Chany [address] [address] 06/07/2024 Jose Hoy Left ankle pain M25. 572 ; DM2 (diabetes mellitus, type 2) E11.9 ; Hypothyroidism E03.9 ; Hyperlipidemia E78.5 ; COPD (chronic obstructive pulmonary disease) J44.9 and BP (high blood pressure) I10 [address] [address] 03/07/2024 Jose Alfaro Onychomycosis B35.1 ; DM2 (diabetes mellitus, type 2) E11.9 ; Hypothyroidism E03.9 ; Hypertension I10 and COPD (chronic obstructive pulmonary disease) J44.[address] [address] 09/05/2024 Jose Chany DM2 (diabetes mellit us, type 2) E11.9 ; Hypothyroidism E03.9 ; Hyperlipidemia E78.5 ; Hypertension I10 and Appendicitis K37 [address] [address] 08/03/2024 Jose Alfaro Chronic kidney disea se, stage 3b N18.32 ; DM2 (diabetes mellitus, type 2) E11.9 ; Diabetes mellitus E11.9 ; Morbid (severe) obesity due to excess calories E66.01 ; 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 ; COPD (chronic obstructive pulmonary disease) J44.9 and De Quervain's disease (tenosynovitis) M65.[address] [address] 08/20/2024 Jose Chany Fever R50.9 and Acut e bronchitis, unspecified organism J20.[address] [address] 12/06/2024 Jose Chany DM2 (diabetes mellit us, type 2) E11.9 ; History of ST elevation myocardial infarction (STEMI) I25.2 ; Hypothyroidism E03.9 ; Over weight E66.3 ; Hyperlipidemia E78.5 ; Coronary artery disease I25.10 and Hypertension I10 Pulmonary Medicine [address] [address] 04/18/2024 Jay Doty COPD (chronic obstructive pulmonary disease) J44.9 and History of tobacco abuse Z87.891 Assessments Encounter Date Diagnosis (ICD Code) Assessment [...] vaporizer to help keep the drainage moist. Bedv-evy-bemimcd Nasal Saline may help the stuffy and runny nose. Use Ibuprofen and or Tylenol as needed for fever, chills, body aches or pain. Children 5 years old should not be given pomm-obt-bsiszjw cough and cold medications such as guaifenesin and dextromethorphan. If you're over age 5, you may try ucoi-evp-qvcwcpx cold medications such as guaifenesin and dextromethorphan, [...] Diabetes mellitus (ICD-10 - E11.9) likely up [facility] sgteroids - 112 yesterday 09/05/2024 Hyperlipidemia (ICD-10 [...] Name:Jay Doty, 04/23/2025 09:00:00 AM, [address] [place], [address], Insurance Providers Payer Name Payer Address Payer Phone Subscriber Number Group Number Insured Name Patient Relationship to Insured Coverage Start Date Coverage End Date [employer] [address] [address] [place] [address] [phone] [id number] Gladys Smyth Self - patient is the [...] tobacco abuse Z87.891 Surgical History Surgery Date(Month/Year) Hernia Repair- mesh Heart stent Prostate Scraped Kidney stone blast, removal- multiple carpal tunnel release drained appendix 2023 Colonoscopy- Dr Alvarado 10/18/23 Hospitalization History Reason Date(Month/Year) Appendicitis 06/2023 Kidney Failure 08/19
--- OUTSIDE RECORDS SUMMARY | 2024-12-13 07:57 | XMS_ITS | Encounter Summary ---
Author Organization [facility] Address [address] [place] [address] Care Team Providers Care Burial Vault Setter Name Role Phone Jose Danielson MD Primary Care Provider [phone] Reason for Visit * Reason Comments Med Refill Encounter Details Date Type Department Care Team (Late st Contact Info) Description 03/02/2023 Refill [facility] [address] [place] [phone] Riya Gage, [employer] [address] [place] [address] Coronary artery disease involving [place] coronary artery of [place] heart without angina pectoris Social History Tobacco [...] Visit Diagnoses Diagnosis Coronary artery disease involving [place] coronary artery of [place] heart without angina pectoris documented in this encounter Care Teams Burial Vault Setter Relationship Specialty Start Date End Date Jose Danielson MD [address] [place] [address] PCP - General 10/14/22 documented as of this encounter
--- OUTSIDE RECORDS SUMMARY | 2024-12-13 07:57 | XMS_ITS | Encounter Summary ---
Author Organization [facility] Address [address] [place] [address] Care Team Providers Care Broke Beater Operator Name Role Phone Jose Danielson MD Primary Care Provider [phone] Reason for Visit * Reason Comments Med Refill Encounter Details Date Type Department Care Team (Late st Contact Info) Description 03/18/2022 Refill [facility] [address] [place] [phone] Gato Huynh MD [address] [facility] [address] [facility] [place] [phone] Essential hypertension (Primary Dx) Social History Tobacco [...] hypertension documented in this encounter Care Teams Broke Beater Operator Relationship Specialty Start Date End Date Jose Danielson MD [address] [place] [address] PCP - General 10/14/22 documented as of this encounter
--- OUTSIDE RECORDS SUMMARY | 2024-12-13 07:59 | XMS_ITS | CCD ---
Author Organization [facility] Care Team Providers Care Director Of Engineering Name Role Phone Jose Alfaro Primary Care [...] MD Peyton Barragan Other Provider [facility] Other Provider MD Skinny Kiser Other Provider Belkis [facility]- Jen Desir Other Provider [phone] MD Aaliyah Mitchell Other Provider MD Alicia León Other Provider MD Milton Braun Other Provider MD Ni Olivares Other Provider [phone] MD Yogesh Omalley Other Provider MD Kiran Eldridge Jr Other Provider MD Fátima Ivey Other Provider MD Jennifer Villarreal Other Provider MD Bipin Barclay Other Provider BRIT, AILCIA Consulting Unavailable BRIT, ALICIA Attending Unavailable BRIT, [...] THADDEUS Consulting Unavailable YOGESH BYERS Consulting Unavailable JULINÁ, ILA Consulting Unavailable BRIT, ALICIA Attending Unavailable [...] Unavailable MD Jose Alfaro Primary Care Provider [phone] MD Ni Olivares Attending Provider MD Jose Alfaro Primary Care Provider [phone] NON STAFF Attending Provider Unavailable JENNIFER DRISCOLL Attending Unavailable JENNIFER DRISCOLL Attending Unavailable CookRidgeNi P Admitting Unavailable Hoy, Jose M Primary Care Unavailable CookNi P Attending Unavailable Hoy, Jose M Primary Care Unavailable CookNi P Attending Unavailable Cook, Ni P Admitting Unavailable Hoy, Jose M Primary Care Unavailable CookNi P Attending Unavailable Cook, Ni P Admitting Unavailable NON STAFF Attending Unavailable NON STAFF Admitting Unavailable Hoy, Jose M Primary Care Unavailable JENNIFER LEYVA Attending Unavailable IRWIN, ISRA Attending Unavailable ISRA GAYLE Attending Unavailable COOKNi P Attending Unavailable COOKNi P Attending Unavailable COOKNi P Attending Unavailable COOK, Ni P Admitting Unavailable Ni OLIVARES Attending Unavailable Ni OLIVARES Attending Unavailable Ni OLIVARES Admitting Unavailable Allergies Allergy Classification Reported Allergen(s) Allergy Type Date of Onset Reaction(s) Facility (18 sources) Ciprofloxacin; Translations: [ciprofloxacin] Drug Allergy 08-13-19 Eruption of skin (disorder) [facility] (16 sources) Penicillin; Translations: [penicillin] Drug Allergy Eruption of skin (disorder) [facility] [employer] Other (6 sources) Ciprofloxacin Drug Allergy Unknown [facility] [employer] Other (10 sources) Penicillins; Translations: [Penicillins] Allergy to substance 06-14-20 [facility] (1 source) Ciprofloxacin Drug Allergy 03-10-20 [facility] Rep[facility] (3 sources) levothyroxine; Translations: [levothyroxine] Drug Allergy Swelling of oral cavity structure (finding) [facility] (6 sources) liothyronine; Translations: [liothyronine] Drug Allergy Swelling of oral cavity structure (finding) [facility] (1 source) Ciprofloxacin Drug Allergy 06-14-20 [facility] Repository (1 source) No Known Medication Allergies; Translations: [No Known Medication Allergies] Propensity to adverse reactions (disorder) [facility] Repository Medications Current Medications Medication Drug Class(es) Dates Sig (Normalized) Sig (Original) acetaminophen 325 mg / HYDROcodone bitartrate 5 mg oral tablet (1 source) Opioid Agonist Start: 10-07-2022 End: 10-09-2022 acetaminophen-hyd rocodone 325 mg-5 mg oral tablet 1 tab(s), Oral, q4hr Pain for 2 day(s), 7 tab(s), Refill(s) 0, [id number], 175, cm, 09/15/22 5:20:00 EDT, Height/Length Dosing, 114, kg, 09/15/22 5:20:00 EDT, Weight Dosing Start Date: 10/07/22 Stop Date: 10/09/22 Status: Ordered [id number] 200 actuat albuterol 0.09 mg/actuat metered dose inhaler (18 sources) beta2-Adrenergic Agonist Start: 12-20-2023 End: 06-05-2024 take 1 puff(s) by inhalation every four hours as needed Albuterol Sulfate (Ventolin Hfa) 90 mcg/actuation HFA aerosol inhaler Active 2 PUFF INHALATION Every 4 hours as needed June 05, 2024 4:35pm Start: 02-23-2021 take 2 puff(s) by in halation every four hours Ventolin Diskus 2 puff(s), Inhalation, q4hr Shortness of breath or wheezing, Refill(s) 0, COPD Start Date: 02/23/21 Status: Ordered Repeat number: 1 Start: 02-23-2021 take 2 puff(s) by in [...] as needed Inhalation every 4 hrs Active aspirin 81 mg oral tablet (20 sources) Platelet Aggregation Inhibitor, Nonsteroidal Anti-inflammatory Drug Start: 04-10-2019 take 81 mg by mouth once daily aspirin 81 mg, Oral, Daily, Prophylaxis Start Date: 11/18/22 Status: Ordered Repeat number: 1 take 1 tablet by kamala th every twenty-four hours Aspirin 81 81 MG 1 tablet Orally Once a day Active take 1 tablet by mouth once andrew y Aspirin 81 81 MG 1 tablet Orally Once a day Active cholecalciferol 0.125 mg oral capsule (16 sources) Vitamin D Start: 12-20-2023 take 1 capsule by mouth once daily Cholecalciferol (Vitamin D3) 125 mcg (5,000 unit) capsule Active 5000 UNIT PO Daily December 20, 2023 12:00am Start: 06-15-2019 End: 12-20-2023 take 1 tablet by mouth once daily Cholecalciferol (Vitamin D3) 5,000 unit Tablet,Disintegrating Discontinued 5000 UNIT PO Daily June 15, 2019 1:00am December 20, 2023 11:59am Start: 04-10-2019 take 1 tablet by kamala once daily cholecalciferol 2000 intl units oral tablet (Vitamin D3) 2,000 International_Unit = 1 tab(s), Oral, Daily Start Date: 04/10/19 Status: Ordered Start: 04-10-2019 take 1 tablet by kamala once daily cholecalciferol 2000 intl units oral tablet (Vitamin D3) 2,000 International_Unit = 1 tab(s), Oral, Daily Start Date: 04/10/19 Status: Ordered take 1 capsule by mo [facility] every twenty-four hours Vitamin D3 125 [...] 09/14/22 Status: Ordered take 1 tablet by [facility] every twelve hours Diclofenac Sodium 75 MG 1 tablet as need ed Orally Twice a day Active doxycycline hyclate 100 mg oral capsule (8 sources) Tetracycline-class Drug Start: 12-07-2022 doxycy foss hyclate 100 mg Cap See Instructions, Take 1 cap the day before your procedure and 1 cap the day of your procedure - afterwards, # 2 cap(s), Refills(s) 0, Pharmacy: [facility] #[id number], 177, cm, 11/18/22 13:54:00 EDT, Height/Length Dosing, 114.7, kg, 11/18/22 13:54:00 EDT, W... Start Date: 12/07/22 Status: Ordered Start: 07-05-2019 End: 08-15-2022 take 1 tablet by mouth twice daily Doxycycline Hyclate 100 mg tablet Discontinued 100 MG PO Twice daily 14 July 05, 2019 1:00am August 15, 2022 2:41pm glimepiride 2 mg oral tablet (20 sources) Sulfonylurea Start: 06-05-2024 take 1 tablet by mouth twice daily at breakfast Glimepiride 2 mg tablet Active 2 MG PO Twice daily June 05, 2024 4:32pm administer with breakfast Start: 12-20-2023 End: 06-05-2024 take 1 tablet by mouth once daily at breakfast Glimepiride 2 mg tablet Discontinued 2 MG PO Every morning December 20, 2023 12:00am June 05, 2024 4:36pm administer with breakfast Start: 09-14-2022 take 1 tablet by kamala th twice daily glimepiride 4 mg Tab 4 mg = 1 tab(s), Oral, BID, Refills(s) 0, Blood glucose Start Date: 09/14/22 Status: Ordered Repeat number: 1 Start: 06-18-2019 End: 12-20-2023 take 1 tablet by mouth at bedtime glimepiride 4 mg Tab 4 [...] 1:00am June 18, 2019 1:11pm Start: 04-10-2019 End: 06-18-2019 take 2 mg by mouth once daily Glimepiride 4 mg tablet Discontinued 2 MG PO Daily June 15, 2019 1:00am June 18, 2019 1:11pm Sabv-Kyiat-Web-D3-Hyal-Wiley B or (1 source) Start: 12-20-2023 take 1 tablet by mouth twice daily Hksr-Pnklz-Ktc-D3-Hyal-Wiley Bor Active 1 TAB PO Twice daily December 20, 2023 12:00am Dexl-Bazzm-Cfq-D3-Hyal-Wiley B or 750 mg-100 mg- 25 mcg tablet (1 source) Start: 12-20-2023 take 1 tablet by mouth twice daily Fjhs-Jkxcp-Qea-D3-Hyal-Wiley Bor 750 mg-100 mg- 25 mcg tablet Active 1 TAB PO Twice daily December 20, 2023 12:00am glucosamine sulfate 500 mg oral capsule (9 sources) Start: 04-10-2019 take 1 capsule by mouth twice daily glucosamine 500 mg Cap 500 mg = 1 cap(s), Oral, BID, Arthritis Start Date: 04/10/19 Status: Ordered Repeat number: 1 Start: 04-10-2019 take 1 capsule by mo [facility] once daily glucosamine 500 mg Cap [...] mononitrate 120 mg extended release oral tablet (15 sources) Nitrate Vasodilator Start: 12-20-2023 take 1 tablet by mouth once daily, then take 1 tablet by mouth every twenty-four hours Isosorbide Mononitrate 120 mg tablet extended release 24 hr Active 120 MG PO Daily December 20, 2023 12:00am Start: 09-14-2022 isosorbide mon onitrate 60 mg ER Tab 120 mg = 2 tab(s), Oral, qAM, Refills(s) 0, High blood pressure Start Date: 09/14/22 Status: Ordered Repeat number: 1 Start: 09-14-2022 take 1 tablet by kamala once daily in the morning isosorbide mononitrate 60 mg ER Tab 60 mg = 1 tab(s), Oral, qAM, Refills(s) 0, High blood pressure Start Date: 09/14/22 Status: Ordered take 1 tablet by kamala th every twenty-four hours Isosorbide Mononitrate ER 120 MG 1 tablet in the morning Orally Once a day Active ketoconazole 20 mg/ml topical cream (13 sources) Azole Antifungal Start: 12-20-2023 Ketoconazole 2 % cream Active 1 APPLIC TOPICAL Twice daily December 20, 2023 12:00am Start: 11-19-2022 ketoconazole T opical, BID, Refills(s) 0 Start Date: 11/19/22 Status: Ordered Repeat number: 1 Start: 11-19-2022 ketoconazole T opical, BID, Refills(s) 0 Start Date: 11/19/22 Status: Ordered Ketoconazole 2 % 1 application Externally Twice a day Active Ketoconazole 2 % 1 application Externally Twice a day Active levothyroxine sodium 0.05 mg oral tablet (17 sources) l-Thyroxine Start: 12-20-2023 take 1 tablet by mouth once daily Levothyroxine 50 mcg tablet Active 50 MCG PO Daily December 20, 2023 12:00am Start: 03-24-2020 take 1 tablet by kamala th once daily levothyroxine 50 mcg (0.05 mg) Tab 50 mcg = 1 tab(s), Oral, Daily, Refills(s) 0, Thyroid Start Date: 03/24/20 Status: Ordered Repeat number: 1 take 1 tablet by kamala th once daily in the morning Levothyroxine Sodium 50 MCG 1 tablet in the morning on an empty stomach Orally Once a day Active liothyronine sodium 0.005 mg oral tablet (10 sources) l-Triiodothyronine Start: 12-20-2023 take 1 tablet by mouth once daily Liothyronine 5 mcg tablet Active 5 MCG PO Daily December 20, 2023 12:00am Start: 09-14-2022 take 1 tablet by kamala th once daily liothyronine 5 mcg Tab 5 mcg = 1 tab(s), Oral, Daily, Refills(s) 0, Thyroid Start Date: 09/14/22 Status: Ordered Repeat number: 1 take 1 tablet by kamala th every twenty-four hours Liothyronine Sodium 5 MCG 1 tablet on an empty stomach Orally Once a day Active lisinopril 20 mg oral tablet (20 sources) Angiotensin Converting Enzyme Inhibitor Start: 12-20-2023 take 1 tablet by mouth once daily Lisinopril 20 mg tablet Active 20 MG PO Daily December 20, 2023 12:00am Start: 02-23-2021 take 2 tablets by mo [facility] once daily lisinopril 10 mg Tab 20 mg = 2 tab(s), Oral, Daily, Refills(s) 0, High blood pressure Start Date: 02/23/21 Status: Ordered Repeat number: 1 Start: 02-23-2021 take 1 mg by mouth once daily lisinopril 10 mg Tab mg tab(s), Oral, Daily, Refills(s) 0 Start Date: 02/23/21 Status: Ordered Start: 06-15-2019 End: 06-18-2019 Lisinopril 40 mg tablet Disc ontinued 60 MG PO Daily June 15, 2019 1:00am June 18, 2019 1:11pm Start: 06-15-2019 End: 06-18-2019 take 60 mg by mouth once daily Lisinopril Discontinued 60 MG PO Daily June 15, 2019 1:00am June 18, 2019 1:11pm take 1 tablet by kamala th every twenty-four hours Lisinopril 20 MG 1 tablet Orally Once a day Active take 1.5 tablets by mouth every twenty-four hours Lisinopril 10 MG 1.5 tablet Orally Once a day for 90 day(s) Active Magnesium (7 sources) Start: 11-19-2022 take 1 tablet by kamala th once daily Magnesium Magnesium, one tab, Oral, Daily Start Date: 11/19/22 Status: Ordered Repeat number: 1 Start: 11-19-2022 take 1 tablet by kamala th once daily Magnesium Magnesium, one tab, Oral, Daily Start Date: 11/19/22 Status: Ordered Magnesium 400 MG as directed Orally Active Magnesium 400 MG as directed Orally Not-Taking magnesium oxide 400 mg oral tablet (2 sources) Start: 12-20-2023 take 1 tablet by mouth once daily Magnesium Oxide 400 mg (241.3 mg magnesium) tablet Active 400 MG PO Daily December 20, 2023 12:00am 24 hr metoprolol succinate 50 mg extended release oral tablet (20 sources) beta-Adrenergic [place] Start: 03-24-2020 take 1 tablet by mouth twice daily metoprolol 50 mg ER Tab 50 mg = 1 tab(s), Oral, BID, Refills(s) 0, High blood pressure Start Date: 03/24/20 Status: Ordered Repeat number: 1 Start: 03-24-2020 take 1 tablet by kamala th once daily metoprolol 50 mg ER Tab 50 mg = 1 tab(s), Oral, Daily, Refills(s) 0, High blood pressure Start Date: 03/24/20 Status: Ordered Start: 06-15-2019 take 1 tablet by kamala th twice daily Metoprolol Tartrate 50 mg tablet Active 50 MG PO Twice daily June 15, 2019 1:00am nitroglycerin 0.4 mg sublingual tablet (20 sources) Nitrate Vasodilator Start: 12-20-2023 Nitroglyce rin 0.4 mg tablet, sublingual Active 0.4 MG SUBLINGUAL every 5 to 15 minutes as needed December 20, 2023 12:00am Start: 11-18-2022 nitroglycerin 0.4 mg, SubLingual, q5min, PRN Chest pain Start Date: 11/18/22 Status: Ordered Repeat number: 1 Start: 06-15-2019 End: 12-20-2023 Nitroglycerin 0.3 mg Tablet, Sublingual Discontinued 0.3 MG SUBLINGUAL every 5 to 15 minutes as needed for Chest Pain June 15, 2019 1:00am December 20, 2023 11:54am Nitroglycerin 0. 4 MG as directed Sublingual Active Nitroglycerin 0. 3 MG as directed Sublingual Active pioglitazone 15 mg oral tablet (11 sources) Peroxisome Proliferator Receptor alpha Agonist, Peroxisome Proliferator Receptor gamma Agonist, Thiazolidinedione Start: 09-14-2022 take 1 tablet by mouth once daily pioglitazone 15 mg Tab 15 mg = 1 tab(s), Oral, Daily, Refills(s) 0, Blood glucose Start Date: 09/14/22 Status: Ordered Repeat number: 1 12 hr ranolazine 500 mg extended release oral tablet (9 sources) Anti-anginal Start: 12-20-2023 take 1 tablet by mouth twice daily Ranolazine 500 mg tablet extended release 12 hr Active 500 MG PO Twice daily December 20, 2023 12:00am Start: 11-18-2022 take 1 tablet by kamala th once daily ranolazine 500 mg oral ER Tab 500 mg = 1 tab(s), Oral, Daily Start Date: 11/18/22 Status: Ordered Repeat number: 1 take 1 tablet by kamala th every twelve hours Ranolazine ER 500 [...] 60 actuat tiotropium 0.0025 mg/actuat inhalation spray (16 sources) Anticholinergic Start: 12-20-2023 take 1 puff(s) by inhalation once daily Tiotropium [place] (Spiriva Respimat) 2.5 mcg/actuation mist Active 2 PUFF INHALATION Daily December 20, 2023 12:00am Start: 02-23-2021 Spiriva Respim at 1.25 mcg/inh inhalation aerosol 2 puff(s), Inhalation, Daily Shortness of breath or wheezing, Refill(s) 0, COPD Start Date: 02/23/21 Status: Ordered Repeat number: 1 Start: 02-23-2021 Spiriva Respim at 1.25 mcg/inh inhalation aerosol puff(s), Inhalation, Daily, Refill(s) 0 Start Date: 02/23/21 Status: Ordered take 2 puff(s) by in halation once daily Spiriva Respimat 2.5 MCG/ACT 2 puffs Inhalation Once a day Active take 2 puff(s) by in halation once daily Spiriva Respimat 2.5 MCG/ACT 2 puffs Inhalation Once a day Active Vitamin B Complex (7 sources) Start: 12-20-2023 take 1 capsule by mouth once daily Vitamin B Complex Active 1 CAP PO Daily December 20, 2023 12:00am administer with a meal Vitamin B Comple x - as directed Orally Not-Taking Vitamin B Comple x - as directed Orally Active Vitamin B Complex capsule (1 source) Start: 12-20-2023 take 1 capsule by mouth once daily Vitamin B Complex capsule Active 1 CAP PO Daily December 20, 2023 12:00am administer with a meal Vitamin B Complex oral capsule (9 sources) Start: 03-24-2020 take 1 capsule by mouth once daily Vitamin B Complex oral capsule 1 cap(s), Oral, Daily, Prophylaxis Start Date: 03/24/20 Status: Ordered Repeat number: 1 Start: 03-24-2020 take 1 capsule by mo [facility] once daily Vitamin B Complex oral capsule 1 cap(s), Oral, Daily, Prophylaxis Start Date: 03/24/20 Status: Ordered Start: 03-24-2020 take 1 capsule by [place] [facility] once daily Vitamin B Complex oral capsule 1 cap(s), Oral, Daily Start Date: 03/24/20 Status: Ordered Vitamin D3 (9 sources) Start: 08-18-2020 take 50 ug by mouth once daily Vitamin D3 50 mcg, Oral, Daily, Refills(s) 0, Prophylaxis Start Date: 08/18/20 Status: Ordered Repeat number: 1 Start: 08-18-2020 take 50 ug by mouth once daily Vitamin D3 50 mcg, Oral, Daily, Refills(s) 0, Prophylaxis Start Date: 08/18/20 Status: Ordered Start: 08-18-2020 Vitamin D3 Ref ills(s) 0 Start Date: 08/18/20 Status: Ordered Vitamin D3 125 MCG (5000 UT) (1 source) take 1 capsule by [facility] once daily Vitamin D3 125 MCG (5000 UT) 1 capsule Orally Once a day Active Completed/Discontinued Medications Medication Drug Class(es) Dates Sig (Normalized) Sig (Original) acetaminophen 300 mg / codeine phosphate 30 mg oral tablet (7 sources) Opioid Agonist Start: 06-15-2019 End: 07-05-2019 take 1 tablet by mouth every six hours as needed for pain Acetaminophen-Cod eine (Tylenol-Codeine #3) 300-30 mg Tablet Discontinued 300 MG PO Q6H as needed for Pain June 15, 2019 1:00am July 05, 2019 10:12am amLODIPine 2.5 mg oral tablet (20 sources) Dihydropyridine Calcium Channel [place] Start: 12-10-2024 amLODIPine 2.5 mg Tab 90 EA, 0 Refill(s), TAKE 1 TABLET BY MOUTH DAILY, Refills(s) 0 Start Date: 12/10/24 Status: Ordered Repeat number: 1 Start: 11-27-2024 take 1 tablet by kamala once daily Amlodipine 2.5 mg tablet Active 0 .ROUTE .COMPLEX 90 November 27, 2024 11:28am TAKE 1 TABLET BY MOUTH DAILY Start: 06-05-2024 End: 11-27-2024 take 1 tablet by mouth once daily Amlodipine 2.5 mg tablet Discontinued 2.5 MG PO Daily June 05, 2024 1:00am November 27, 2024 11:29am Start: 02-23-2021 take 5 mg by mouth once daily amLODIPine 10 mg Tab 5 mg = 0.5 tab(s), Oral, Daily, Refills(s) 0, High blood pressure Start Date: 02/23/21 Status: Ordered Start: 06-15-2019 End: 12-20-2023 take 1 tablet by mouth once daily Amlodipine 10 mg tablet Discontinued 10 MG PO Daily June 15, 2019 1:00am December 20, 2023 11:50am atorvastatin 80 mg oral tablet (20 sources) HMG-CoA Reductase Inhibitor Start: 06-15-2019 End: 12-20-2023 Atorvastatin 80 mg tablet Discontinued 40 MG PO Bedtime June 15, 2019 1:00am December 20, 2023 11:50am Start: 06-15-2019 End: 12-20-2023 take 40 mg by mouth at bedtime Atorvastatin Discontinu ed 40 MG PO Bedtime June 15, 2019 1:00am December 20, 2023 11:50am Start: 04-10-2019 take 1 tablet by kamala th once daily atorvastatin 80 mg Tab 80 mg = 1 tab(s), Oral, Daily, High cholesterol Start Date: 04/10/19 Status: Ordered Repeat number: 1 dicyclomine hydrochloride 10 mg oral capsule (7 sources) Anticholinergic Start: 06-18-2019 End: 12-20-2023 take 1 capsule by mouth three times daily as needed for muscle spasms Dicyclomine 10 mg capsule Discontinued 10 MG PO Three times daily as needed for spasm June 18, 2019 1:09pm December 20, 2023 11:59am for bladder spasms metFORMIN hydrochloride 1000 mg oral tablet (7 sources) Biguanide Start: 06-15-2019 End: 06-18-2019 take 1 tablet by mouth twice daily Metformin 1,000 mg tablet Discontinued 1000 MG PO Twice daily June 15, 2019 1:00am June 18, 2019 1:11pm SITagliptin 100 mg oral tablet (20 sources) Dipeptidyl Peptidase 4 Inhibitor Start: 06-18-2019 End: 12-20-2023 Sitagliptin Phosphate 100 mg tablet Discontinued 50 MG PO Daily 0 June 18, 2019 1:10pm December 20, 2023 12:02pm Start: 06-18-2019 End: 12-20-2023 take 50 mg by mouth once daily Sitagliptin Phosphate Discontinued 50 MG PO Daily 0 June 18, 2019 1:10pm December 20, 2023 12:02pm Start: 04-10-2019 End: 12-20-2023 take 1 tablet by mouth once daily Januvia 100 mg Tab 100 mg = 1 tab(s), Oral, Daily, Blood glucose Start Date: 04/10/19 Status: Ordered Repeat number: 1 SITagliptin Phos phate 50 MG as directed Orally Active ticagrelor 90 mg oral tablet (7 sources) Start: 06-15-2019 End: 07-05-2019 take 1 tablet by mouth twice daily Ticagrelor 90 mg tablet Discontinued 90 MG PO Twice daily June 15, 2019 1:00am July 05, 2019 10:12am triamcinolone acetonide 5 mg/ml topical cream (9 sources) Corticosteroid Start: 12-20-2023 End: 12-03-2024 Triamcinolone Acetonide 0.5 % cream Discontinued 1 APPLIC TOPICAL Twice a Week December 20, 2023 12:00am December 03, 2024 2:20pm Start: 11-19-2022 triamcinolone acetonide Topical, BID, PRN Itching, Refills(s) 0 Start Date: 11/19/22 Status: Ordered Repeat number: 1 Start: 11-19-2022 triamcinolone acetonide Topical, BID, PRN Itching, Refills(s) 0 Start Date: 11/19/22 Status: Ordered Triamcinolone Ac etonide 0.5 % 1 application Externally Two times a Week Active Triamcinolone Ac etonide 0.5 % 1 application Externally Two times a Week Active Problems Active Problems Problem Classification Problem Date Documented Date Episodic/Chronic Abdominal pain (9 sources) Flank pain 02-23-2021 Episodic Acute and unspecified renal failure (7 sources) Renal failure syndrome; Translations: [Unspecified kidney failure] 08-11-2022 Chronic Acute and unspecified renal failure (20 sources) Acute renal failure syndrome; Translations: [Injury of kidney] Onset: 3 08-18-2020 Episodic Comment on above: Problem List clean-u p per request of Phys. EHR Cmte Acute myocardial infarction (9 sources) Myocardial infarction 04-10-2019 Chronic Calculus of urinary tract (20 sources) Kidney stone; Translations: [Calculus of kidney] Onset: 1 Resolved: 2 Episodic Comment on above: Problem List clean-u p per request of Phys. EHR Cmte Cancer of prostate (13 sources) Malignant tumor of prostate; Translations: [Malignant neoplasm of prostate] Onset: 3 07-18-2019 Chronic Chronic kidney disease (20 sources) Chronic kidney disease; Translations: [Chronic kidney disease, unspecified] 08-11-2022 Chronic Chronic kidney disease (13 sources) Chronic kidney disease; Translations: [Chronic kidney disease, stage III (moderate)] Onset: 1 Resolved: 2 Chronic obstructive pulmonary disease and bronchiectasis (11 sources) Chronic obstructive lung disease; Translations: [Chronic obstructive pulmonary disease, unspecified] Onset: 3 09-14-2022 Chronic Coronary atherosclerosis and other heart disease (20 sources) Coronary arteriosclerosis; Translations: [Atherosclerotic heart disease of [place] coronary artery without angina pectoris] Onset: 3 04-10-2019 Chronic Comment on above: Problem List clean-u p per request of Phys. EHR Cmte Coronary atherosclerosis and other heart disease (8 [...] circulatory complications] Onset: 1 Resolved: 2 Chronic Comment on above: Problem List clean-u p per request of Phys. EHR Cmte Diabetes mellitus without complication (20 sources) Type 2 diabetes mellitus; Translations: [Diabetes mellitus] 04-10-2019 Chronic Diabetes mellitus without complication (1 source) Other abnormal glucose; Translations: [OTHER ABNORMAL GLUCOSE] Onset: 3 Episodic Disorders of lipid metabolism (19 sources) Hyperlipidemia; Translations: [Hyperlipidemia, unspecified] Onset: 3 04-10-2019 Chronic Essential hypertension (20 sources) Hypertensive disorder; Translations: [Essential (primary) hypertension] Onset: 3 04-10-2019 Chronic Fluid and electrolyte disorders (18 sources) Metabolic acidosis; Translations: [Metabolic acidosis] Onset: 3 08-11-2022 Episodic Comment on above: Problem List clean-u p per request of Phys. EHR Cmte Genitourinary symptoms and ill-defined conditions (20 sources) Nocturia; Translations: [Nocturia] Onset: 2 Episodic Comment on above: Problem List clean-u p per request of Phys. EHR Cmte Hyperplasia of prostate (20 sources) Benign prostatic hypertrophy with outflow obstruction; Translations: [Benign prostatic hyperplasia with lower urinary tract symptoms] Onset: 2 Chronic Comment on above: Problem List clean-u p per request of Phys. 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)] 06-15-2019 Chronic Noninfectious gastroenteritis (9 sources) Postprandial diarrhea 04-17-2019 Episodic Other and unspecified benign neoplasm (9 sources) Hyperplastic polyp of large intestine 04-10-2019 Episodic Other connective tissue disease (4 sources) Pain in right leg; Translations: [PAIN IN RIGHT LEG] Onset: 3 Episodic Other diseases of kidney and ureters (8 sources) Secondary hyperparathyroidism; Translations: [Secondary hyperparathyroidism of renal origin] 12-20-2023 Chronic Other diseases of kidney and ureters (9 sources) Secondary hyperparathyroidism of renal origin; Translations: [Secondary hyperparathyroidism (of renal origin)] Onset: 1 Resolved: 2 Chronic Other diseases of kidney and ureters (9 sources) Urinary tract obstruction; Translations: [Other obstructive and reflux uropathy] Onset: 2 Episodic Comment on above: Problem List clean-u p per request of Phys. EHR Cmte Other diseases of kidney and ureters (17 sources) Hydronephrosis; Translations: [Unspecified hydronephrosis] 08-08-2019 Episodic Comment on above: Problem List clean-u p per request of Phys. EHR Cmte Other diseases of kidney and ureters (9 sources) Hydronephrosis due to ureteral obstruction 07-18-2019 Episodic Other diseases of kidney and ureters (7 sources) Acute renal insufficiency; Translations: [Disorder of kidney and ureter, unspecified] 06-28-2019 Episodic Comment on above: Problem List clean-u p per request of Phys. EHR Cmte Other diseases of kidney and ureters (7 sources) Occlusion of ureter; Translations: [Crossing vessel and stricture of ureter without hydronephrosis] 06-15-2019 Episodic Comment on above: Problem List clean-u p per request of Phys. EHR Cmte Other diseases of kidney and ureters (7 sources) Obstructive nephropathy; Translations: [Other obstructive and reflux uropathy] 08-11-2022 Episodic Comment on above: Problem List clean-u p per request of Phys. EHR Cmte Other diseases of kidney and ureters (1 source) Disorder of kidney and ureter, unspecified; Translations: [Unspecified disorder of kidney and ureter] 08-15-2022 Episodic Other diseases of kidney and ureters (7 sources) Hydronephrosis with renal and ureteral calculous obstruction; Translations: [Calculus of ureter] 08-15-2022 Episodic Comment on above: Problem List clean-u p per request of Phys. EHR Cmte Other diseases of kidney and ureters (1 source) Other obstructive and reflux uropathy; Translations: [Other specified disorders of kidney and ureter] 08-15-2022 Episodic Other gastrointestinal disorders (9 sources) Occult blood in stools 04-17-2019 Episodic Other lower respiratory disease (7 sources) Nodule of lung; Translations: [Solitary pulmonary nodule] 08-15-2022 Episodic Comment on above: Problem List clean-u p per request of Phys. EHR Cmte Other lower respiratory disease (1 source) Other forms of dyspnea; Translations: [OTHER FORMS OF DYSPNEA] Onset: 3 Episodic Other male genital disorders (12 sources) Male erectile dysfunction, unspecified; Translations: [Erectile [...] Chronic Other nutritional; endocrine; and metabolic disorders (7 sources) H/O: hypothyroidism 09-14-2022 Episodic Other nutritional; endocrine; and metabolic disorders (1 source) Hyperuricemia; Translations: [Hyperuricemia without signs of inflammatory arthritis and tophaceous disease] 06-06-2024 Episodic Other nutritional; endocrine; and metabolic disorders (1 source) Hyperuricemia without signs of inflammatory arthritis and tophaceous disease; Translations: [Other abnormal blood chemistry] 12-03-2024 Episodic Other screening for suspected conditions (not mental disorders or infectious disease) (20 sources) Raised prostate specific antigen; Translations: [Elevated prostate specific antigen [PSA]] Onset: 3 06-21-2019 Episodic Comment on above: Problem List clean-u p per request of Phys. EHR Cmte Rheumatoid arthritis and related disease (9 sources) Rheumatoid arthritis 04-10-2019 Chronic Screening and history of mental health and substance abuse codes (7 sources) Ex-smoker; Translations: [Personal history of nicotine dependence] Onset: 3 Episodic Thyroid disorders (1 source) Hypothyroidism, unspecified; Translations: [HYPOTHYROIDISM UNSPECIFIED] Onset: 3 Chronic Unclassified (9 sources) Drug therapy finding 06-21-2019 Unclassified (4 [...] tract symptoms] Onset: 4 Urinary tract infections (14 sources) Pyelonephritis; Translations: [Tubulo-interstitial nephritis, not specified as acute or chronic] 06-15-2019 Episodic Comment on above: Problem List clean-u p per request of Phys. 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; Translations: [LONGTERM CURRENT USE OF ASPIRIN] Onset: 08-13-2022 Episodic Other aftercare (1 source) Other extermination supervisor (current) drug therapy; Translations: [OTH CORRECTIVE THERAPY AIDE TEACHER CURRENT DRUG THERAPY] Onset: 08-13-2022 Episodic Other [...] Interpretation Reference Range Facility Ambulatory Visit Summaryon 0 12-10-2024 Ambulatory Visit Summary Ambulatory Visit Summary VICTORINO SMYTH Bryan :1940 Visit Date:12/10/2024 Ambulatory Visit Instructions Your Diagnosis Prostate cancer [...] Medication (Magnesium) albuterol (Ventolin Diskus) amlodipine (amLODIPine 2.5 mg Tab) aspirin atorvastatin (atorvastatin 80 mg [...] or branch, TRIGGER FINGER RELEASE. Discharge Vitals Temperature (Temporal Artery) 36.9 ???C Heart Rate (Peripheral) 65 Blood Pressure 138/66 Height 175 cm Height 69 in Weight 126.3 kg Weight 278.444 lb BMI 41.24 What to do next You Need to Schedule the Following Appointments Follow Up with CARLOS OLIVEROS, Ni Garcia, URL When: Comments: 6 mos w/ PSA Where: [address] [place] [id number]- You Need to Complete the Following PSA Free & Total, Blood, Routine collect, 12/10/24, Order for future visit, Lab Collect, Prostate cancer, Print Label By Order Location Medications What How Much When Instructions Unchanged albuterol (Ventolin Diskus) 2 Puffs Inhalation Every 4 hours as needed for Shortness of breath or wheezing Contact prescribing physician if questions or concerns Unchanged amlodipine (amLODIPine 2.5 mg Tab) 90 EA, 0 Refill(s), TAKE 1 TABLET BY MOUTH DAILY Contact prescribing physician if questions or concerns [...] mg oral ER Tab) 1 Tablets By Kamala (more content not included)... Normal [facility] CHEMISTRYOrdered By: SYSTEM SYSTEM on 12-10-2024 Free PSA [Mass/Vol] 0.8 ng/mL Invalid Interpretation Code Remisol Chem Comment on above: Interpretive Data: T he concentration of free PSA and total PSA determined with assays from different manufacturers can vary due to differences in assay methods and specificity. Values obtained with different global engineering manager's assays cannot be used interchangeably. The methodology used to obtain this result was chemiluminescence using [employer]'s Access Hybritech PSA reagent and Access Hybritech free PSA reagent. Free PSA/Total PSA [Mass fraction] 13.8 % Low >=25.0% Remisol Chem Prostate specific Ag [Mass/Vol] 5.8 ng/mL High 0.1 - 3.5 ng/mL Remisol Chem Comment on above: Interpretive Data: T he concentration of PSA determined by different manufacturers can vary due to differences in assay methods and reagent specificity. Values obtained from different assay methods cannot be used interchangeably. The methodology used for this result was chemiluminescence using [employer]'s Access Hybritech PSA reagent. Urology Office/Clinic Noteon 12-10-2024 Urology Office/Clinic Note Urology Office/Clinic Note Chief Complaint 6mo f/u HPI Staff 84 year old male presents for for 6 month w/ PSA. Prev dx: prostate cancer (active surveillance), Kidney stones, BPH Prev PSA: 06/28/23: 4.7 03/28/24: 6.2 & 16% Current PSA: pt has had No recent VALENTINA and NO PSA done yet pt was left voicemails prior to appointment. Today's UA Resulted: Trace-PRO IPSS Score:5 Pt states when he gets the urge to go he has to go right now . pt states goes 1-2x a night. pt states strong stream but sometimes experiences hesitancy. History of Present Illness Tests reviewed: reviewed UA I have reviewed the previous health record [...] See HPI. Physical Exam Vitals & Measurements T: 36.9 ???C(Temporal Artery) HR: 65(Peripheral) BP: 138/66 HT: 175 cm HT: 69 in WT: 126.3 kg WT: 278.444 lb BMI: 41.24 General Appearance: alert, no distress, well nourished, well developed male. Assessment/Plan 1. Prostate cancer (C61: Malignant neoplasm of prostate) ACTIVE SURVEILLANCE PSA (PCP has been monitoring): 11/06/22 - 5.8 03/24/23 - 4.6 & 13.5% 06/28/23 - 4.7 03/28/24 - 6.2 & 16% TRUS/bx 07/05/[address] Carlisle. Path Dom 6 (3+3) x2 involving 15%. Pt states active surveillance was decided on. [1] No PSA done for appt today. Offered to have this drawn IO. Pt willing to proceed. -Pt to be called w results of PSA -If stable, f/u in 6 mos w/ PSA 2. Kidney stone (N20.0: Calculus of kidney) [...] renal stones. L cortex thinned 0.8 cm. [2] Pt did not have imaging done for appt today despite being called by our office. States he lost the order. -Obtain VALENTINA @ [facility]. Will call pt w results. 3. BPH with urinary obstruction (N40.1: Benign prostatic hyperplasia with lower urinary tract symptoms) S/p TURP 07/2019. UA neg. IPSS 5 (8). Not taking any prostate meds. Overall the patient is voiding well. Unfortunately he did not get his PSA done, nor did he get his renal ultrasound. Will get PSA performed today here in the office. Pending level, he will have a repeat visit in 6 months with a repeat PSA. Renal ultrasound will be obtained and he will call for that result as well. Urinalysis negative. Follow-up With When Contact Information Ni OLIVARES MD, URL [address] [place] [phone]- Additional Instructions: 6 mos w/ PSA Patient Education Prostate Cancer Screening I, Vale Bryan, personally scribed for Dr. Olivares on 12/10/2024 11:37:28. . Documentation recorded by the staciaibVale linares acurately reflects the services(s) I performed and decisions made by me. Authenticated by Dr. Olivares on 12/10/2024 11:46:32. Portions of this record may have been created with voice recognition artificial intelligence software, specifically [employer] and or [employer]. Substitutions may have occurred due to the inherent limitations of voice recognition and artificial intelligence software. Problem List/Past Medical History Ongoing Acute kidney failure Anticoagulated 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 Coronary artery disease DM (diabetes mellitus), type 2 Elevated PSA Erectile dysfunction Flank pain Hydronephrosis Hydronephrosis with ureteral calculus Hyperlipidemia Hyperplastic colon polyp Hypertension Kidney stone Morbid obesity with BMI of 40.0-44.9, adult Myocardial infarct Occult blood in stools Postprandial diarrhea Prostate cancer Rheumatoid arthritis Ureteral stone Urinary retention Historical No qualifying data Procedure/Surgical History Cystoscopic removal of ureteric stent (12/20/2022), Cystoscopy (12/02/2022), ESWL of kidney (10/07/2022), Transurethral resection of prostate (08/01/2019), Biopsy of prostate ( (more content not included)... Normal [facility] Comment on above: Result Comment: Elec tronically Signed By: Ni OLIVARES MD\.br\Date and Time Signed: 12/10/24 11:47 EDT\.br\Electronically Co-Signed By: Vale Bryan\.br\Date and Time Co-Signed: 12/10/24 11:37 EDT Reminderson 11-30-2024 Reminders Reminders From: Shira Mauricio To: JACOB [...] ) Other: PROVIDER RELATED REMINDER:_ ( ) Bracelet Former ( ) Call Pharmacy ( ) Call Lab ( ) Other: Special Instructions:_ Comments:_ LM on vm reminding pt to get VALENTINA done, advise pt to call back LM on advise pt the order will be sent [facility] to get PSA & VALENTINA done Normal [facility] Erythrocyte distribution wid th Auto (RBC) [Ratio]on 11-27-2024 Erythrocyte distribution width (RBC) [Ratio] Erythrocyte distribution width [Ratio] by Automated count 11.0-15.0 [facility] Estimated glomerular filtrat ion rate (GFR) non- Americanon 11-27-2024 GFR/1.73 sq M.predicted among non-blacks MDRD (S/P/Bld) [Vol rate/Area] Estimated glomerular filtration rate (GFR) non- Low >=60 mL/min/1.7 3m 2 [facility] Hematocrit Auto (Bld) [Volum e fraction]on 11-27-2024 Hematocrit (Bld) [Volume fraction] Hematocrit [Volume Fraction] of Blood by Automated count Low 42.0-54.0 [facility] Hemoglobin [Mass/volume] in Bloodon 11-27-2024 Hemoglobin (Bld) [Mass/Vol] Hemoglobin [Mass/volume] in Blood Low 14.0-18.0 [facility] Laboratory - Chemistry and C hemistry - challengeon 11-27-2024 Albumin [Mass/Vol] 3.3 g/dL Low 3.4-5.[address] [facility] Calcium [Mass/Vol] 9.2 mg/dL 8.5-10.[address] [facility] Chloride [Moles/Vol] 109 mmol/L High 98-107 [facility] CO2 [Moles/Vol] 24.5 mmol/L 21.0-32.0 [facility] Creatinine [Mass/Vol] 1.70 mg/dL High 0.70-1.30 [facility] GFR/1.73 sq M.predicted MDRD (S/P/Bld) [Vol rate/Area] 47 mL/min/{1.73_m2} Low >=60 mL/min/1.7 3m 2 [facility] Glucose [Mass/Vol] 152 mg/dL High 74-[address] [facility] Magnesium [Mass/Vol] 1.8 mg/dL 1.8-2.4 [facility] Potassium [Moles/Vol] 4.7 mmol/L 3.5-5.1 [facility] Sodium [Moles/Vol] 145 mmol/L 136-[address] [facility] Urate [Mass/Vol] 6.8 mg/dL 3.5-7.2 [facility] Urea nitrogen [Mass/Vol] 23.0 mg/dL High 7.0-18.0 [facility] Urea nitrogen/Creatinine [Mass ratio] 13.5 mg/mg [facility] Laboratory - Urinalysison Protein (U) [Mass/Vol] 33.1 mg/dL High <=11.9 [facility] Leukocytes [#/volume] correc ike for nucleated erythrocytes in Blood by Automated counon 11-27-2024 WBC corrected for nucl RBC Auto (Bld) [#/Vol] Leukocytes [#/volume] corrected for nucleated erythrocytes in Blood by Automated coun 4.0-11.0 [facility] MCH Auto (RBC) [Entitic mass ]on 11-27-2024 MCH (RBC) [Entitic mass] MCH [Entitic mass] by Automated count High 25.9-34.0 [facility] MCHC Auto (RBC) [Mass/Vol]on 11-27-2024 MCHC (RBC) [Mass/Vol] MCHC [Mass/volume] by Automated count 29.9-35.2 [facility] MCV Auto (RBC) [Entitic vol] on 11-27-2024 MCV (RBC) [Entitic vol] MCV [Entitic volume] by Automated count High 80.0-94.0 [facility] No Panel Informationon 11-27 25-Hydroxy Vitamin D Total 70.4 ng/mL [facility] Comment on above: <20 ng/mL Vit D defi cient20-<30 ng/mL Vit D [id number] ng/mL Vit D sufficient>100 ng/mL Potential Toxicity Parathyroid Hormone (Intact) 40 pg/mL 15-65 [facility] Comment on above: Performed at: [place] [id number] Director: Lee Bob PhD, Phone: [phone] Phosphorus Level 3.9 mg/dL 2.6-4.7 [facility] Urine Random Creatinine 179.73 mg/dL 20.00-300. 00 [facility] Platelet mean volume Auto (B ld) [Entitic vol]on 11-27-2024 Platelet mean volume (Bld) [Entitic vol] Platelet mean volume [Entitic volume] in Blood by Automated count 9.5-13.5 [facility] Platelets Auto (Bld) [#/Vol] on 11-27-2024 Platelets (Bld) [#/Vol] Platelets [#/volume] in Blood by Automated count 150-450 [facility] RBC Auto (Bld) [#/Vol]on RBC (Bld) [#/Vol] Erythrocytes [#/volu me] in Blood by Automated count Low 4.70-6.10 [facility] Serum or plasma anion gap de terminationon 11-27-2024 Anion gap [Moles/Vol] Serum or plasma an ion gap determination [facility] Urine protein/creatinine rat ioon 11-27-2024 Protein/Creatinine (U) [Ratio] Urine protein/creatinine ratio [facility] Ambulatory Visit Summaryon 1 08-13-2023 Ambulatory Visit [...] OLIVEROS, Ni Garcia Primary Care Physician - Jose Alfaro MD [...] OLIVARES MD Where: [facility] [address] [place] [address] You Need to Schedule the Following Appointments Follow Up with Ni OLIVARES MD, URL When: Where: [address] [phone] Medications What How Much When [...] if q (more content not included)... Normal [facility] Urology Office/Clinic Noteon 06-12-2024 Urology Office/Clinic Note [...] Information CARLOS OLIVEROS, Ni P, URL [address] [phone]- Additional Instructions: 6 mos with PSA and [...] with voice recognition artificial intelligence software, specifically [employer] and or [employer]. Substitutions may have occurred due to the [...] of u (more content not included)... Normal [facility] Comment on above: Result Comment: Elec tronically Signed By: Ni OLIVARES MD\.br\Date and Time Signed: 06/12/24 13:29 EST\.br\Electronically Co-Signed By: Shira Mauricio\.br\Date and Time Co-Signed: 06/12/24 11:55 EST Office Visiton 05-21-2024 Follow-up visit [id number] Ruben Smyth 1940 M Date Provider Department Center 05/21/2024 JENNIFER SMITH F[facility] Family History Problem Relation Age of Onset No Known Problems Mother No Known Problems Father Family Status - Relation Status Age at Mother Father Level of Service:74811 OK OFFICE/OUTPATIENT ESTABLISHED LOW MDM 20 MIN Normal [facility] Erythrocyte distribution wid th Auto (RBC) [Ratio]on 12-14-2023 Erythrocyte distribution width (RBC) [Ratio] 12.9 % 11.0-15.0 [facility] Estimated glomerular filtrat ion rate (GFR) non- Americanon 12-14-2023 GFR/1.73 sq M.predicted among non-blacks MDRD (S/P/Bld) [Vol rate/Area] 35 mL/min/{1.73_m2} >=60 [facility] Hematocrit Auto (Bld) [Volum e fraction]on 12-14-2023 Hematocrit (Bld) [Volume fraction] 41.9 % 42.0-54.0 [facility] Hemoglobin [Mass/volume] in Bloodon 12-14-2023 Hemoglobin (Bld) [Mass/Vol] 14.0 g/dL 14.0-18.0 [facility] Iron binding capacity [Mass/ volume] in Serum or Plasmaon 12-14-2023 Iron binding capacity [Mass/Vol] 279.0 ug/dL 250.0-450. 0 [facility] Iron saturation [Mass Fracti on] in Serum or Plasmaon 12-14-2023 Iron saturation [Mass fraction] 36.2 % [facility] Laboratory - Chemistry and C hemistry - challengeon 12-14-2023 Albumin [Mass/Vol] 3.3 g/dL 3.4-5.[address] [facility] Calcium [Mass/Vol] 8.5 mg/dL 8.5-10.[address] [facility] Chloride [Moles/Vol] 106 mmol/L 98-107 [facility] CO2 [Moles/Vol] 24.0 mmol/L 21.0-32.0 [facility] Creatinine [Mass/Vol] 1.84 mg/dL 0.70-1.30 [facility] Ferritin [Mass/Vol] 111.0 ng/mL 26.0-388.0 [facility] GFR/1.73 sq M.predicted MDRD (S/P/Bld) [Vol rate/Area] 43 mL/min/{1.73_m2} >=60 [facility] Glucose [Mass/Vol] 155 mg/dL 74-[address] [facility] Iron [Mass/Vol] 101.0 ug/dL 65.0-175.0 [facility] Magnesium [Mass/Vol] 1.7 mg/dL 1.8-2.4 [facility] Potassium [Moles/Vol] 4.6 mmol/L 3.5-5.1 [facility] Sodium [Moles/Vol] 140 mmol/L 136-[address] [facility] Urate [Mass/Vol] 6.4 mg/dL 3.5-7.2 [facility] Urea nitrogen [Mass/Vol] 21.0 mg/dL 7.0-18.0 [facility] Urea nitrogen/Creatinine [Mass ratio] 11.4 mg/mg [facility] Bilirubin Ql (U) Negative NEGATIVE [facility] Glucose (U) [Mass/Vol] Negative NEGATIVE [facility] Ketones Ql (U) Negative NEGATIVE [facility] pH (U) 5.5 [pH] 5.0-9.0 [facility] Specific gravity (U) [Rel density] 1.015 1.005-1.02 5 [facility] Urobilinogen Qn (U) 0.2 {Wil'U}/dL 0.2-1.0 [facility] Laboratory - Specimen inform ationon 12-14-2023 Appearance (U) CLEAR CLEAR [facility] Color (U) YELLOW YELLOW [facility] Laboratory - Urinalysison Leukocyte esterase Test strip Ql (U) Negative NEGATIVE [facility] Mucus Ql (Urine sed) NONE SEEN NONE SEEN [facility] Nitrite Ql (U) Negative NEGATIVE [facility] Protein (U) [Mass/Vol] 10.9 mg/dL <=11.9 [facility] Protein Ql (U) Negative NEG/TRACE [facility] Leukocytes [#/volume] correc ike for nucleated erythrocytes in Blood by Automated counon 12-14-2023 WBC corrected for nucl RBC Auto (Bld) [#/Vol] 6.2 10 3/uL 4.0-11.0 [facility] MCH Auto (RBC) [Entitic mass ]on 12-14-2023 MCH (RBC) [Entitic mass] 33.7 pg 25.9-34.0 [facility] MCHC Auto (RBC) [Mass/Vol]on 12-14-2023 MCHC (RBC) [Mass/Vol] 33.4 g/dL 29.9-35.2 [facility] MCV Auto (RBC) [Entitic vol] on 12-14-2023 MCV (RBC) [Entitic vol] 101.0 fL 80.0-94.0 [facility] No Panel Informationon 12-13 25-Hydroxy Vitamin D Total 66.1 ng/mL [facility] Comment on above: <20 ng/mL Vit D defi cient20-<30 ng/mL Vit D [id number] ng/mL Vit D sufficient>100 ng/mL Potential Toxicity Parathyroid Hormone (Intact) 50 pg/mL 15-65 [facility] Comment on above: Performed at: [address] [id number] Director: Lee Bob PhD, Phone: [phone] Phosphorus Level 3.5 mg/dL 2.6-4.7 [facility] Urine Bacteria NONE SEEN #/HPF NONE SEEN [facility] Urine Occult Blood Negative NEGATIVE [facility] Urine Other Casts NONE SEEN #/LPF NONE SEEN [facility] Urine Other Crystals None Seen #/HPF None Seen [facility] Urine Random Creatinine 71.05 mg/dL 20.00-300. 00 [facility] Urine RBC NONE SEEN #/HPF 0-2 [facility] Urine Squamous Epithelial Cells RARE #/LPF NONE/RARE [facility] Urine WBC NONE SEEN #/HPF NONE SEEN [facility] Platelet mean volume Auto (B ld) [Entitic vol]on 12-14-2023 Platelet mean volume (Bld) [Entitic vol] 11.2 fL 9.5-13.5 [facility] Platelets Auto (Bld) [#/Vol] on 12-14-2023 Platelets (Bld) [#/Vol] 168 10 3/uL 150-450 [facility] RBC Auto (Bld) [#/Vol]on RBC (Bld) [#/Vol] 4.15 10 6/uL 4.70-6.10 [facility] Serum or plasma anion gap de terminationon 12-14-2023 Anion gap [Moles/Vol] 14.6 mmol/L [facility] Urine protein/creatinine rat ioon 12-14-2023 Protein/Creatinine (U) [Ratio] 0.15 [facility] Office Visiton 11-01-2023 Follow-up visit [id number] Ruben Smyth 1940 M Date Provider Department Center 11/01/2023 ISRA HICKS [facility] Family History Problem Relation Age of Onset No Known Problems Mother No Known Problems Father Family Status - Relation Status Age at Mother Father Level of Service:81247 OK OFFICE/OUTPATIENT ESTABLISHED MOD MDM 30 MIN Reason for Visit and Comments: Coronary Artery Disease [187] Hypertension [[id number]] Normal [facility] Daniel 10-18-2023 L Specimen: [id number] Received: 10/19/23 Status: HIMANSHU Williamson Num: [id number] Spec Type: Surgical Subm Dr: NON STAFF Tissues: A Colon Biopsy (DESC POLYP AT 50 CM) Procedures: HE/2, Gross/Micro L4 Age/ Patient Sex Location Account Attending Physician SmythVictorino goodman 83/M [facility] [id number] NON STAFF SPEC NUM: [id number] RECD: 10/19/23 STATUS: HIMANSHU WILLIAMSON NUM: [id number] HYUN: 10/18/23-[address]: EMELY STAFF ENTERED: 10/19/[address] [facility] [address]: Charito,Lab SPEC TYPE: Surgical DEPT: MIO [...] colon polyp at 50 cm CPT Codes 23679 Specimen: [id number] Received: 10/19/23 Status: HIMANSHU Williamson Num: [id number] Spec Type: Surgical Subm Dr: EMELY STAFF Tissues: A Colon Biopsy (DESC POLYP AT 50 CM) Procedures: HE/Rebecca, Gross/Micro L4 Patient: Victorino Smyth [id number] (Continued) Signed (signature on file) nAa Villegas MD 10/20/23 9737 Normal [facility] 36on 09-06-2023 36 Blood pressure is lo oking better. Continue to hold amlodipine. Thanks! Normal [facility] 37on 08-23-2023 37 *Stop Amlodipine. *We will call you in 1 week to check in on your blood pressure readings. Normal [facility] Office Visiton 08-23-2023 Follow-up visit [id number] Ruben Smyth 1940 M Date Provider Department Center 08/23/2023 [facility] Family History Problem Relation Age of Onset No Known Problems Mother No Known Problems Father Family Status - Relation Status Age at Mother Father Level of Service:32603 OK OFFICE/OUTPATIENT ESTABLISHED MOD MDM 30 MIN Normal [facility] Calcium [Mass/volume] in Ser um or PlasmaOrdered By: Ni Olivares on 07-02-2023 Calcium [Mass/Vol] 8.8 mg/dL Normal 8.6-10.[address] [facility] Comment on above: Performed By: #### U THUY, CA, CREAT, BUN, PTH, LYTES #### [facility] [address] Carbon dioxide, total [Moles /volume] in Serum or PlasmaOrdered By: Ni Olivares on 07-02-2023 CO2 [Moles/Vol] 24.0 mmol/L Normal 21.0-31.0 [facility] Comment on above: Performed By: #### U THUY, CA, CREAT, BUN, PTH, LYTES #### [facility] [address] [place] [id number] [place] Chloride [Moles/volume] in S paty or PlasmaOrdered By: Ni Olivares on 07-02-2023 Chloride [Moles/Vol] 107 mmol/L Normal 98-107 [facility] Comment on above: Performed By: #### U THUY, CA, CREAT, BUN, PTH, LYTES #### [facility] [address] [place] [id number] [place] Creatinineon 07-02-2023 GFR/1.73 sq M.predicted MDRD (S/P/Bld) [Vol rate/Area] 32.151 mL/min/{1.73_m2} Normal [facility] Comment on above: Performed By: #### U THUY, CA, CREAT, BUN, PTH, LYTES #### [address] Creatinine [Mass/volume] in Serum or PlasmaOrdered By: Ni Olivares on 07-02-2023 Creatinine [Mass/Vol] 2.05 mg/dL High 0.70-1.30 [facility] Comment on above: Performed By: #### U THUY, CA, CREAT, BUN, PTH, LYTES #### [address] No Panel InformationOrdered By: Ni Olivares on 07-02-2023 Estimated GFR (CKD-EPI) 32.151 mL/Min [facility] Creatinine Clearance (Chem N/A [facility] Parathyrin.intact [Mass/volu me] in Serum or PlasmaOrdered By: Ni Olivares on 07-02-2023 Parathyrin.intact [Mass/Vol] 55.4 pg/mL [facility] Parathyroid Hormone Intacton 07-02-2023 Parathyroid Hormone Intact 55.4 pg/mL Normal [facility] Comment on above: Result Comment: PERF ORMED BY: [place] [address] PATHOLOGIST TELESCOPE REPAIRER DIANDRA LACY M.D. Performed By: #### U THUY, CA, CREAT, BUN, PTH, LYTES #### [address] Potassium [Moles/volume] in Serum or PlasmaOrdered By: Ni Olivares on 07-02-2023 Potassium [Moles/Vol] 5.0 mmol/L Normal 3.5-5.1 [facility] Comment on above: Performed By: #### U THUY, CA, CREAT, BUN, PTH, LYTES #### [address] Serum or plasma anion gap de terminationOrdered By: Ni Olivares on 07-02-2023 Anion gap [Moles/Vol] 12.0 mmol/L Normal 6.0-15.0 [facility] Comment on above: Performed By: #### U THUY, CA, CREAT, BUN, PTH, LYTES #### [facility] [address] [place] [address] [place] Sodium [Moles/volume] in Ser um or PlasmaOrdered By: Ni Olivares on 07-02-2023 Sodium [Moles/Vol] 138 mmol/L Normal 136-[address] [facility] Comment on above: Performed By: #### U THUY, CA, CREAT, BUN, PTH, LYTES #### [facility] [address] [place] [address] [place] Urate [Mass/volume] in Serum or PlasmaOrdered By: Ni Olivares on 07-02-2023 Urate [Mass/Vol] 8.2 mg/dL High 4.4-7.6 [facility] Comment on above: Result Comment: PERF ORMED BY: [place] [address] PATHOLOGIST TELESCOPE REPAIRER DIANDRA LACY M.D. Performed By: #### U THUY, CA, CREAT, BUN, PTH, LYTES #### [facility] [address] [place], [place] [id number] [facility] Urea nitrogen [Mass/volume] in Serum or PlasmaOrdered By: Ni Olivares on 07-02-2023 Urea nitrogen [Mass/Vol] 31 mg/dL High 7-25 [facility] Comment on above: Performed By: #### U THUY, CA, CREAT, BUN, PTH, LYTES #### [facility] [address] [place], [place] [id number] [facility] PSA Total (Not a Screen)on 0 06-28-2023 PSA Total (Not a Screen) 4.730 ng/mL High 0.000-4.00 0 [facility] Comment on above: Result Comment: Seri al tumor marker results determined by assays using different manufacturers or methods may not be comparable. [facility] global engineering manager and method: AgentPiggyEL DXI, CHEMILUMINESCENT IMMUNOASSAY. PERFORMED BY: [place] [id number] PATHOLOGIST TELESCOPE REPAIRER DIANDRA LACY M.D. Performed By: #### P SATOTAL #### [facility] [address] [place] [address] [facility] Prostate specific Ag [Mass/v olume] in Serum or PlasmaOrdered By: Ni Olivares on 06-28-2023 Prostate specific Ag [Mass/Vol] 4.730 ng/mL 0.000-4.00 0 [facility] Comment on above: Serial tumor marker results determined by assays using different manufacturers or methods may not be comparable.[facility] global engineering manager and method:AgentPiggyEL DXI, CHEMILUMINESCENT IMMUNOASSAY. US renal BIon 06-16-2023 US renal BI [facility] [place] [address] [place] [id number] Ultrasound Report Signed Patient: Victorino Smyth MR#: [id number] : 1940 Acct:[id number] Age/Sex: 82 / M ADM Date: 06/16/23 Loc: Room: Type: [facility] Attending Dr: Ni Olivares MD Ordering [...] Rehan Fuentes M.D.06/16/2023 4:02 PM Dictation Location: [place] [address] Tech: Sue Chiu Transcribed By: [facility] 06/16/23 1602 Dictated By: Rehan Fuentes DO 06/16/23 1556 Signed By: 06/16/23 1602 Normal [facility] PSA, FREE AND TOTAL RATIOon 11-09-2022 % Free PSA 11.3 % Normal [facility] Comment on above: Result Comment: The [...] men. Performed By: #### P SAFREE #### [facility] [address] [place] [address] Dr. Alicia Patel Prostate specific Ag [Mass/Vol] 4.6 ng/mL Critically high 0.0-4.0 [facility] Comment on above: Result Comment: Dwight linares ECLIA methodology. . According to the [employer], Serum PSA should decrease and [...] disease. Performed By: #### P SAFREE #### [facility] [address] [place] [address] Dr. Alicia Patel PSA, Free 0.52 ng/mL Normal N/A [facility] Comment on above: Result Comment: Roch vijay ECLIA methodology. Performed By: #### P SAFREE #### [facility] [address] [place] [address] [address] Alicia Patel INSULINon 11-08-2022 Insulin 18.5 uIU/mL Normal 2.6-24.9 [facility] Comment on above: Performed By: #### T SH, LIPID, T4, FT3, CMP #### [facility] [address] [place] [id number] Alicia Patel CBC AUTO DIFFon 05-13-2023 BASO # 0.0 103/ul Normal 0.0-0.1 [facility] Comment on above: Performed By: #### C BC #### [facility] [address] [place] [address] Dr. Alicia Patel Basophils/100 WBC (Bld) 0.4 % Normal 0.2-2.0 [facility] Comment on above: Performed By: #### C BC #### [facility] [address] [place] [address] Dr. Alicia Patel EO # 0.2 103/ul Normal 0.0-0.7 [facility] Comment on above: Performed By: #### C BC #### [facility] [address] [place] [address] Dr. Alicia Patel Eosinophils/100 WBC (Bld) 4.6 % Normal 0.9-7.0 [facility] Comment on above: Performed By: #### C BC #### [facility] [address] [place] [address] Dr. Alicia Patel Erythrocyte distribution width (RBC) [Ratio] 13.2 % Normal 11.0-15.0 [facility] Comment on above: Performed By: #### C BC #### [facility] [address] [place] [address] Dr. Alicia Patel Hematocrit (Bld) [Volume fraction] 34.6 % Critically low 42.0-54.0 [facility] Comment on above: Performed By: #### C BC #### [facility] [address] [place] [address] Dr. Alicia Patel Hemoglobin (Bld) [Mass/Vol] 11.4 g/dL Critically low 14.0-18.0 [facility] Comment on above: Performed By: #### C BC #### [facility] [address] [place] [address] Dr. Alicia Patel IG # 0.03 10e3/ul Normal 0.00-0.03 [facility] Comment on above: Performed By: #### C BC #### [facility] [address] [place] [address] Dr. Alicia Patel IG % 0.6 % Critically high 0.0-0.5 [facility] Comment on above: Performed By: #### C BC #### [facility] [address] [place] [address] Dr. Alicia Patel LYMPH # 0.9 103/ul Critically low 1.2-3.8 [facility] Comment on above: Performed By: #### C BC #### [facility] [address] [place] [address] Dr. Alicia Patel Lymphocytes/100 WBC (Bld) 16.3 % Critically low 20.5-60.0 [facility] Comment on above: Performed By: #### C BC #### [facility] [address] [place] [address] Dr. Alicia Patel MANUAL DIFF REQ NO Normal [facility] Comment on above: Performed By: #### C BC #### [facility] [address] [place] [address] Dr. Alicia Patel MCH (RBC) [Entitic mass] 32.9 pg Normal 25.9-34.0 [facility] Comment on above: Performed By: #### C BC #### [facility] [address] [place] [address] Dr. Alicia Patel MCHC (RBC) [Mass/Vol] 32.9 g/dL Normal 29.9-35.2 [facility] Comment on above: Performed By: #### C BC #### [facility] [address] [place] [address] Dr. Alicia Patel MCV (RBC) [Entitic vol] 99.7 fL Critically high 80.0-94.0 [facility] Comment on above: Performed By: #### C BC #### [facility] [address] [place] [address] Dr. Alicia Patel MONO # 0.6 103/ul Normal 0.3-0.8 [facility] Comment on above: Performed By: #### C BC #### [facility] [address] [place] [address] Dr. Alicia Patel Monocytes/100 WBC (Bld) 12.0 % Normal 1.7-12.0 [facility] Comment on above: Performed By: #### C BC #### [facility] [address] [place] [address] [address] Alicia Patel NEUT # 3.5 103/ul Normal 1.4-6.5 [facility] Comment on above: Performed By: #### C BC #### [facility] [address] [place] [address] [address] Alicia Patel Neutrophils/100 WBC (Bld) 66.1 % Normal 43.0-75.0 [facility] Comment on above: Performed By: #### C BC #### [facility] [address] [place] [address] Dr. Alicia Patel Platelet mean volume (Bld) [Entitic vol] 10.1 fL Normal 9.5-13.5 [facility] Comment on above: Performed By: #### C BC #### [facility] [address] [place] [address] Dr. Alicia Patel PLT 168 103/ul Normal 150-450 [facility] Comment on above: Performed By: #### C BC #### [facility] [address] [place] [address] Dr. Alicia Patel RBC 3.47 106/ul Critically low 4.70-6.10 [facility] Comment on above: Performed By: #### C BC #### [facility] [address] [place] [address] Dr. Alicia Patel WBC 5.2 103/ul Normal 4.0-11.0 [facility] Comment on above: Performed By: #### C BC #### [facility] [address] [place] [address] Dr. Alicia Patel FREE T3on 11-06-2022 FREE T3 2.78 pg/mlL Normal 2.18-3.98 [facility] Comment on above: Performed By: #### U RTPCR #### [facility] [address] [place] [address] Dr. Alicia Patel GLYCOHEMOGLOBIN A1Con 2022 ADA RECOMMENDATION SEE BELOW Normal [facility] Comment on above: Result Comment: ADA RECOMMENDED LIMIT 4.0 - 6.0 ADA THERAPEUTIC TARGET < 7.0 ACTION SUGGESTED > 7.0 Performed By: #### T SH, LIPID, T4, FT3, CMP #### [facility] [address] [place] [address] Dr. Alicia Patel Glucose [Mass/Vol] 120 mg/dL Normal [facility] Comment on above: Performed By: #### T SH, LIPID, T4, FT3, CMP #### [facility] [address] [place] [address] Dr. Alicia Patel HbA1c (Bld) [Mass fraction] 5.8 % Normal 4.5-6.2 [facility] Comment on above: Performed By: #### T SH, LIPID, T4, FT3, CMP #### [facility] [address] [place] [address] Dr. Alicia Patel LIPID PROFILEon 11-06-2022 CHOL-HDL RATIO NORM SEE BELOW Normal [facility] Comment on above: Result Comment: 3.3 - 4.4 LOW RISK 4.4 - 7.1 AVERAGE RISK 7.1 - 11.0 MODERATE RISK >11.0 HIGH RISK Performed By: #### U RTPCR #### [facility] [address] [place] [address] Dr. Alicia Patel Cholesterol [Mass/Vol] 107 mg/dL Normal <=200 Th [facility] Comment on above: Performed By: #### U RTPCR #### [facility] [address] [place] [address] Dr. Alicia Patel Cholesterol in HDL [Mass/Vol] 34 mg/dL Critically low 40-60 [facility] Comment on above: Performed By: #### U RTPCR #### [facility] [address] [place] [address] Dr. Alicia Patel Cholesterol in LDL [Mass/Vol] 58.8 mg/dL Normal [facility] Comment on above: Performed By: #### U RTPCR #### [facility] [address] [place] [address] Dr. Alicia Patel Cholesterol.total/Chol esterol in HDL [Mass ratio] 3.1 {ratio} Normal [facility] Comment on above: Performed By: #### U RTPCR #### [facility] [address] [address] [address] Alicia Patel HDL NORMAL > or = 60 mg/dl - LO W CARDIOVASCULAR RISK <40 mg/dl - HIGH CARDIOVASCULAR RISK Normal [facility] Comment on above: Performed By: #### U RTPCR #### [facility] [address] [address] [address] Alicia Patel LDL CALC NORMAL SEE BELOW Normal [facility] Comment on above: Result Comment: <100 mg/dl OPTIMAL 100 - 129 mg/dl NEAR OR ABOVE OPTIMAL 130 - 159 mg/dl BORDERLINE HIGH 160 - 189 mg/dl HIGH >190 mg/dl VERY HIGH Performed By: #### U RTPCR #### [facility] [address] [place] [address] Dr. Alicia Patel Triglyceride [Mass/Vol] 71 mg/dL Normal <=150 [facility] Comment on above: Performed By: #### U RTPCR #### [facility] [address] [place] [address] Dr. Alicia Patel VLDL CALC 14.2 mg/dL Normal [facility] Comment on above: Performed By: #### U RTPCR #### [facility] [address] [place] [address] Dr. Alicia Patel PROF 14(COMP METB)on 023 Albumin [Mass/Vol] 3.4 g/dL Normal 3.4-5.0 [facility] Comment on above: Performed By: #### T SH, LIPID, T4, FT3, CMP #### [facility] [address] [place] [address] Dr. Alicia Patel Albumin/Globulin [Mass ratio] 0.9 {ratio} Normal [facility] Comment on above: Performed By: #### T SH, LIPID, T4, FT3, CMP #### [facility] [address] [place] [address] Dr. Alicia Patel ALP [Catalytic activity/Vol] 75 U/L Normal 46-116 [facility] Comment on above: Performed By: #### T SH, LIPID, T4, FT3, CMP #### [facility] [address] [place] [address] Dr. Alicia Patel ALT [Catalytic activity/Vol] 31 U/L Normal 16-63 [facility] Comment on above: Performed By: #### T SH, LIPID, T4, FT3, CMP #### [facility] [address] [place] [address] Dr. Alicia Patel Anion gap [Moles/Vol] 14.4 mmol/L Normal Th [facility] Comment on above: Performed By: #### T SH, LIPID, T4, FT3, CMP #### [facility] [address] [place] [address] Dr. Alicia Patel AST [Catalytic activity/Vol] 23 U/L Normal 15-37 [facility] Comment on above: Performed By: #### T SH, LIPID, T4, FT3, CMP #### [facility] [address] [place] [address] Dr. Alicia Patel Bilirubin [Mass/Vol] 0.5 mg/dL Normal 0.2-1.0 [facility] Comment on above: Performed By: #### T SH, LIPID, T4, FT3, CMP #### [facility] [address] [place] [address] Dr. Alicia Patel Calcium [Mass/Vol] 8.8 mg/dL Normal 8.5-10.1 [facility] Comment on above: Performed By: #### T SH, LIPID, T4, FT3, CMP #### [facility] [address] [place] [address] Dr. Alicia Patel Chloride [Moles/Vol] 110 mmol/L Critically high 98-107 [facility] Comment on above: Performed By: #### T SH, LIPID, T4, FT3, CMP #### [facility] [address] [place] [address] Dr. Alicia Patel CO2 [Moles/Vol] 24.2 mmol/L Normal 21.0-32.0 [facility] Comment on above: Performed By: #### T SH, LIPID, T4, FT3, CMP #### [facility] [address] [place] [address] Dr. Aliica Patel Creatinine [Mass/Vol] 2.41 mg/dL Critically high 0.70-1.30 [facility] Comment on above: Performed By: #### T SH, LIPID, T4, FT3, CMP #### [facility] [address] [place] [address] Dr. Alicia Patel EGFR-AF AUSTRIAN 32 mL/min/1.73m2 Critically low >=60 [facility] Comment on above: Performed By: #### T SH, LIPID, T4, FT3, CMP #### [facility] [address] [place] [address] Dr. Alicia Patel EGFR-NON AF AUSTRIAN 26 mL/min/1.73m2 Critically low >=60 [facility] Comment on above: Performed By: #### T SH, LIPID, T4, FT3, CMP #### [facility] [address] [place] [address] Dr. Alicia Patel Globulin (S) [Mass/Vol] 3.6 g/dL Normal [facility] Comment on above: Performed By: #### T SH, LIPID, T4, FT3, CMP #### [facility] [address] [place] [address] Dr. Alicia Patel Glucose [Mass/Vol] 72 mg/dL Critically low 74-106 Th [facility] Comment on above: Performed By: #### T SH, LIPID, T4, FT3, CMP #### [facility] [address] [place] [address] Dr. Alicia Patel Potassium [Moles/Vol] 4.6 mmol/L Normal 3.5-5.1 [facility] Comment on above: Performed By: #### T SH, LIPID, T4, FT3, CMP #### [facility] [address] [place] [address] Dr. Alicia Patel Protein [Mass/Vol] 7.0 g/dL Normal 6.4-8.2 [facility] Comment on above: Performed By: #### T SH, LIPID, T4, FT3, CMP #### [facility] [address] [place] [address] Dr. Alicia Patel Sodium [Moles/Vol] 144 mmol/L Normal 136-145 [facility] Comment on above: Performed By: #### T SH, LIPID, T4, FT3, CMP #### [facility] [address] [place] [address] Dr. Alicia Patel Urea nitrogen [Mass/Vol] 32.0 mg/dL Critically high 7.0-18.0 [facility] Comment on above: Performed By: #### T SH, LIPID, T4, FT3, CMP #### [facility] [address] [place] [address] Dr. Alicia Patel Urea nitrogen/Creatinine [Mass ratio] 13.3 mg/mg Normal [facility] Comment on above: Performed By: #### T SH, LIPID, T4, FT3, CMP #### [facility] [address] [place] [address] Dr. Alicia Patel T4on 11-06-2022 T4 [Mass/Vol] 7.90 ug/dL Normal 4.50-12.10 [facility] Comment on above: Performed By: #### T SH, LIPID, T4, FT3, CMP #### [facility] [address] [place] [address] Dr. Alicia Patel TSHon 11-06-2022 TSH 0.263 uIU/mL Critically low 0.358-3.74 0 [facility] Comment on above: Performed By: #### T SH, LIPID, T4, FT3, CMP #### [facility] [address] [place] [address] Dr. Alicia Patel URIC ACID SERUMon 11-06-2022 Urate [Mass/Vol] 7.3 mg/dL Critically high 3.5-7.2 [facility] Comment on above: Performed By: #### T SH, LIPID, T4, FT3, CMP #### [facility] [address] [place] [address] Dr. Alicia Patel ECHOCARDIO M/2D COMPLETEon 0 10-26-2022 ECHOCARDIO M/2D COMPLETE Patient: VICTORINO SMYTHManohar Exam Date: 10/26/2022 : 1940 Gender:M Ordering : IRIS CORONEL Admission #: [id number] Family : DR JOSE ALFARO . Order #: [id number] CLICK HERE TO VIEW EXAM ECHOCARDIOGRAM REPORT [...] [place] M.D. on 10/28/2022 at 13:02 Normal [facility] XR KUB 1 VIEWon 10-22-2022 XR [...] by: TYLER MONSIVAIS Date: 2022-10-22 09:12 Normal [facility] US KIDNEYSon 10-18-2022 US KIDNEYS EXAMINATION: [...] TESS FORD Date: 2022-10-18 07:04 Normal [facility] BNPon 10-14-2022 Natriuretic peptide B (Bld) [Mass/Vol] 300.0 pg/mL Normal <=1,800.0 [facility] Comment on above: Performed By: #### T SH, LIPID, T4, FT3, CMP #### [facility] [address] [place] [address] Dr. Alicia Patel CBC AUTO DIFFon 10-14-2022 BASO # 0.0 103/ul Normal 0.0-0.1 [facility] Comment on above: Performed By: #### T SH, LIPID, T4, FT3, CMP #### [facility] [address] [place] [address] Dr. Alicia Patel Basophils/100 WBC (Bld) 0.6 % Normal 0.2-2.0 [facility] Comment on above: Performed By: #### T SH, LIPID, T4, FT3, CMP #### [facility] [address] [place] [address] Dr. Alicia Patel EO # 0.2 103/ul Normal 0.0-0.7 [facility] Comment on above: Performed By: #### T SH, LIPID, T4, FT3, CMP #### [facility] [address] [place] [address] Dr. Alicia Patel Eosinophils/100 WBC (Bld) 4.6 % Normal 0.9-7.0 [facility] Comment on above: Performed By: #### T SH, LIPID, T4, FT3, CMP #### [facility] [address] [place] [address] Dr. Alicia Patel Erythrocyte distribution width (RBC) [Ratio] 14.2 % Normal 11.0-15.0 [facility] Comment on above: Performed By: #### T SH, LIPID, T4, FT3, CMP #### [facility] [address] [place] [address] Dr. Alicia Patel Hematocrit (Bld) [Volume fraction] 36.1 % Critically low 42.0-54.0 [facility] Comment on above: Performed By: #### T SH, LIPID, T4, FT3, CMP #### [facility] [address] [place] [address] Dr. Alicia Patel Hemoglobin (Bld) [Mass/Vol] 11.8 g/dL Critically low 14.0-18.0 [facility] Comment on above: Performed By: #### T SH, LIPID, T4, FT3, CMP #### [facility] [address] [place] [address] Dr. Alicia Patel IG # 0.03 10e3/ul Normal 0.00-0.03 [facility] Comment on above: Performed By: #### T SH, LIPID, T4, FT3, CMP #### [facility] [address] [place] [address] Dr. Alicia Patel IG % 0.6 % Critically high 0.0-0.5 [facility] Comment on above: Performed By: #### T SH, LIPID, T4, FT3, CMP #### [facility] [address] [place] [address] Dr. Alicia Patel LYMPH # 1.1 103/ul Critically low 1.2-3.8 [facility] Comment on above: Performed By: #### T SH, LIPID, T4, FT3, CMP #### [facility] [address] [place] [address] Dr. Alicia Patel Lymphocytes/100 WBC (Bld) 22.6 % Normal 20.5-60.0 [facility] Comment on above: Performed By: #### T SH, LIPID, T4, FT3, CMP #### [facility] [address] [place] [address] Dr. Alicia Patel MANUAL DIFF REQ NO Normal [facility] Comment on above: Performed By: #### T SH, LIPID, T4, FT3, CMP #### [facility] [address] [place] [address] Dr. Alicia Patel MCH (RBC) [Entitic mass] 33.2 pg Normal 25.9-34.0 [facility] Comment on above: Performed By: #### T SH, LIPID, T4, FT3, CMP #### [facility] [address] [place] [address] Dr. Alicia Patel MCHC (RBC) [Mass/Vol] 32.7 g/dL Normal 29.9-35.2 [facility] Comment on above: Performed By: #### T SH, LIPID, T4, FT3, CMP #### [facility] [address] [place] [address] Dr. Alicia Patel MCV (RBC) [Entitic vol] 101.7 fL Critically high 80.0-94.0 [facility] Comment on above: Performed By: #### T SH, LIPID, T4, FT3, CMP #### [facility] [address] [place] [address] Dr. Alicia Patel MONO # 0.7 103/ul Normal 0.3-0.8 [facility] Comment on above: Performed By: #### T SH, LIPID, T4, FT3, CMP #### [facility] [address] [place] [address] Dr. Alicia Patel Monocytes/100 WBC (Bld) 13.8 % Critically high 1.7-12.0 [facility] Comment on above: Performed By: #### T SH, LIPID, T4, FT3, CMP #### [facility] [address] [place] [address] Dr. Alicia Patel NEUT # 2.9 103/ul Normal 1.4-6.5 [facility] Comment on above: Performed By: #### T SH, LIPID, T4, FT3, CMP #### [facility] [address] [place] [address] Dr. Alicia Patel Neutrophils/100 WBC (Bld) 57.8 % Normal 43.0-75.0 [facility] Comment on above: Performed By: #### T SH, LIPID, T4, FT3, CMP #### [facility] [address] [place] [address] Dr. Alicia Patel Platelet mean volume (Bld) [Entitic vol] 10.1 fL Normal 9.5-13.5 [facility] Comment on above: Performed By: #### T SH, LIPID, T4, FT3, CMP #### [facility] [address] [place] [address] Dr. Alicia Patel PLT 160 103/ul Normal 150-450 [facility] Comment on above: Performed By: #### T SH, LIPID, T4, FT3, CMP #### [facility] [address] [place] [address] Dr. Alicia Patel RBC 3.55 106/ul Critically low 4.70-6.10 [facility] Comment on above: Performed By: #### T SH, LIPID, T4, FT3, CMP #### [facility] [address] [place] [address] Dr. Alicia Patel WBC 5.0 103/ul Normal 4.0-11.0 [facility] Comment on above: Performed By: #### T SH, LIPID, T4, FT3, CMP #### [facility] [address] [place] [address] Dr. Alicia Patel PROF CHEM 8 (BAS METB)on Anion gap [Moles/Vol] 13.9 mmol/L Normal Th e [facility] Comment on above: Performed By: #### T SH, LIPID, T4, FT3, CMP #### [facility] [address] [place] [address] Dr. Alicia Patel Calcium [Mass/Vol] 8.3 mg/dL Critically low 8.5-10.1 Th e [facility] Comment on above: Performed By: #### T SH, LIPID, T4, FT3, CMP #### [facility] [address] [place] [address] Dr. Alicia Patel Chloride [Moles/Vol] 108 mmol/L Critically high 98-107 [facility] Comment on above: Performed By: #### T SH, LIPID, T4, FT3, CMP #### [facility] [address] [place] [address] Dr. Alicia Patel CO2 [Moles/Vol] 23.5 mmol/L Normal 21.0-32.0 [facility] Comment on above: Performed By: #### T SH, LIPID, T4, FT3, CMP #### [facility] [address] [place] [address] Dr. Alicia Patel Creatinine [Mass/Vol] 2.41 mg/dL Critically high 0.70-1.30 [facility] Comment on above: Performed By: #### T SH, LIPID, T4, FT3, CMP #### [facility] [address] [place] [address] Dr. Alicia Patel EGFR-AF AUSTRIAN 32 mL/min/1.73m2 Critically low >=60 [facility] Comment on above: Performed By: #### T SH, LIPID, T4, FT3, CMP #### [facility] [address] [place] [address] Dr. Alicia Patel EGFR-NON AF AUSTRIAN 26 mL/min/1.73m2 Critically low >=60 [facility] Comment on above: Performed By: #### T SH, LIPID, T4, FT3, CMP #### [facility] [address] [place] [address] Dr. Alicai Patel Glucose [Mass/Vol] 74 mg/dL Normal 74-106 [facility] Comment on above: Performed By: #### T SH, LIPID, T4, FT3, CMP #### [facility] [address] [place] [address] Dr. Alicia Patel Potassium [Moles/Vol] 4.4 mmol/L Normal 3.5-5.1 [facility] Comment on above: Performed By: #### T SH, LIPID, T4, FT3, CMP #### [facility] [address] [address] [address] Alicia Patel Sodium [Moles/Vol] 141 mmol/L Normal 136-145 [facility] Comment on above: Performed By: #### T SH, LIPID, T4, FT3, CMP #### [facility] [address] [address] [address] Alicia Patel Urea nitrogen [Mass/Vol] 36.0 mg/dL Critically high 7.0-18.0 [facility] Comment on above: Performed By: #### T SH, LIPID, T4, FT3, CMP #### [facility] [address] [place] [address] Dr. Alicia Patel Urea nitrogen/Creatinine [Mass ratio] 14.9 mg/mg Normal [facility] Comment on above: Performed By: #### T SH, LIPID, T4, FT3, CMP #### [facility] [address] [address] [address] Alicia Patel TROPONIN, HIGH SENSITIVITYon 10-14-2022 HSTROP 9.6 pg/mL Normal 4.0-76.1 [facility] Comment on above: Result Comment: CUT- OFF POINTS HAVE BEEN ESTABLISHED BASED ON THE FOURTH UNIVERSAL DEFINITIONS OF MYOCARDIAL INFARCTION. THE UPPER REFERENCE LIMIT (URL) OF TROPONIN, DEFINED THE 99TH PERCENTILE OF cTnI DISTRIBUTION IN A REFERENCE POPULATION, HAS BEEN CONFIRMED THE DECISION THRESHOLD FOR WI DIAGNOSIS. Performed By: #### T SH, LIPID, T4, FT3, CMP #### [facility] [address] [place] [address] Dr. Alicia Patel CHEMISTRYOrdered By: Lab ROP User on 10-07-2022 Glucose [Mass/Vol] 101 mg/dL High 55 - 99 mg/dL [facility] Comment on above: Result Comment: Jackelin quach RN/ POC Device SN [id number] Invalid Interpretation Code [facility] Sub[facility] POC User ID [id number] Invalid Interpretation Code [facility] Subsection POC Username BEE NORRIS Invalid Interpretation Code [facility] Subsection PTH INTACTon 09-14-2022 PTH, Intact 51 pg/mL Normal 15-65 [facility] Comment on above: Performed By: #### T SH, LIPID, T4, FT3, CMP #### [facility] [address] [address] [address] Alicia Patel HEMOGRAM AND PLATELon 2022 Hematocrit (Bld) [Volume fraction] 32.9 % Critically low 42.0-54.0 [facility] Comment on above: Performed By: #### T SH, LIPID, T4, FT3, CMP #### [facility] [address] [address] [address] Alicia Patel Hemoglobin (Bld) [Mass/Vol] 10.9 g/dL Critically low 14.0-18.0 [facility] Comment on above: Performed By: #### T SH, LIPID, T4, FT3, CMP #### [facility] [address] [address] [address] Alicia Patel MCH (RBC) [Entitic mass] 32.6 pg Normal 25.9-34.0 [facility] Comment on above: Performed By: #### T SH, LIPID, T4, FT3, CMP #### [facility] [address] [place] [address] Dr. Alicia Patel MCHC (RBC) [Mass/Vol] 33.1 g/dL Normal 29.9-35.2 [facility] Comment on above: Performed By: #### T SH, LIPID, T4, FT3, CMP #### [facility] [address] [place] [address] Dr. Alicia Patel MCV (RBC) [Entitic vol] 98.5 fL Critically high 80.0-94.0 [facility] Comment on above: Performed By: #### T SH, LIPID, T4, FT3, CMP #### [facility] [address] [place] [address] Dr. Alicia Patel PLT 145 103/ul Critically low 150-450 [facility] Comment on above: Performed By: #### T SH, LIPID, T4, FT3, CMP #### [facility] [address] [place] [address] Dr. Alicia Patel RBC 3.34 106/ul Critically low 4.70-6.10 [facility] Comment on above: Performed By: #### T SH, LIPID, T4, FT3, CMP #### [facility] [address] [place] [address] Dr. Alicia Patel WBC 5.1 103/ul Normal 4.0-11.0 [facility] Comment on above: Performed By: #### T SH, LIPID, T4, FT3, CMP #### [facility] [address] [place] [address] Dr. Alicia Patel MAGNESIUMon 09-13-2022 Magnesium [Mass/Vol] 1.5 mg/dL Critically low 1.8-2.4 [facility] Comment on above: Performed By: #### T SH, LIPID, T4, FT3, CMP #### [facility] [address] [place] [address] Dr. Alicia Patel RENAL FUNCTION PANELon 09-13 Albumin [Mass/Vol] 3.5 g/dL Normal 3.4-5.0 [facility] Comment on above: Performed By: #### U RTPCR #### [facility] [address] [place] [address] Dr. Alicia Patel Calcium [Mass/Vol] 8.4 mg/dL Critically low 8.5-10.1 [facility] Comment on above: Performed By: #### U RTPCR #### [facility] [address] [place] [address] Dr. Alicia Patel Chloride [Moles/Vol] 107 mmol/L Normal 98-107 [facility] Comment on above: Performed By: #### U RTPCR #### [facility] [address] [place] [address] Dr. Alicia Patel CO2 [Moles/Vol] 25.1 mmol/L Normal 21.0-32.0 [facility] Comment on above: Performed By: #### U RTPCR #### [facility] [address] [place] [address] Dr. Alicia Patel Creatinine [Mass/Vol] 1.96 mg/dL Critically high 0.70-1.30 [facility] Comment on above: Performed By: #### U RTPCR #### [facility] [address] [address] [address] Alicia Patel EGFR-AF AUSTRIAN 40 mL/min/1.73m2 Critically low >=60 [facility] Comment on above: Performed By: #### U RTPCR #### [facility] [address] [address] [address] Alicia Patel EGFR-NON AF AUSTRIAN 33 mL/min/1.73m2 Critically low >=60 [facility] Comment on above: Performed By: #### U RTPCR #### [facility] [address] [address] [address] Alicia Patel Glucose [Mass/Vol] 151 mg/dL Critically high 74-106 [facility] Comment on above: Performed By: #### U RTPCR #### [facility] [address] [address] [address] Alicia Patel Phosphate [Mass/Vol] 3.5 mg/dL Normal 2.6-4.7 [facility] Comment on above: Performed By: #### U RTPCR #### [facility] [address] [place] [address] Dr. Alicia Patel Potassium [Moles/Vol] 4.3 mmol/L Normal 3.5-5.1 [facility] Comment on above: Performed By: #### U RTPCR #### [facility] [address] [address] [address] Alicia Patel Sodium [Moles/Vol] 142 mmol/L Normal 136-145 [facility] Comment on above: Performed By: #### U RTPCR #### [facility] [address] [address] [address] Alicia Patel Urea nitrogen [Mass/Vol] 23.0 mg/dL Critically high 7.0-18.0 [facility] Comment on above: Performed By: #### U RTPCR #### [facility] [address] [place] [address] Dr. Alicia Patel UA RANDOM W/MICROSCOPICon BACTERIA TRACE Abnormal NONE SEEN [facility] Comment on above: Performed By: #### T SH, LIPID, T4, FT3, CMP #### [facility] [address] [place] [address] Dr. Alicia Patel Bilirubin Ql (U) Negative Normal NEGATIVE [facility] Comment on above: Performed By: #### T SH, LIPID, T4, FT3, CMP #### [facility] [address] [place] [address] Dr. Alicia Patel CAST NONE SEEN Normal NONE SEEN [facility] Comment on above: Performed By: #### T SH, LIPID, T4, FT3, CMP #### [facility] [address] [place] [address] Dr. Alicia Patel Clarity (U) CLEAR Normal CLEAR [facility] Comment on above: Performed By: #### T SH, LIPID, T4, FT3, CMP #### [facility] [address] [place] [address] Dr. Alicia Patel Color (U) LT. YELLOW Normal YELLOW [facility] Comment on above: Performed By: #### T SH, LIPID, T4, FT3, CMP #### [facility] [address] [place] [address] Dr. Alicia Patel Crystals LM Nom (Urine sed) NONE SEEN Normal NONE SEEN [facility] Comment on above: Performed By: #### T SH, LIPID, T4, FT3, CMP #### [facility] [address] [place] [address] Dr. Alicia Patel Epithelial cells LM Ql (Urine sed) RARE Normal NONE SEEN /RARE [facility] Comment on above: Performed By: #### T SH, LIPID, T4, FT3, CMP #### [facility] [address] [place] [address] Dr. Alicia Patel Glucose Ql (U) 500 mg/dl Abnormal NEGATIVE [facility] Comment on above: Performed By: #### T SH, LIPID, T4, FT3, CMP #### [facility] [address] [place] [address] Dr. Alicia Patel Hemoglobin Ql (U) LARGE Abnormal NEGATIVE [facility] Comment on above: Performed By: #### T SH, LIPID, T4, FT3, CMP #### [facility] [address] [place] [address] Dr. Alicia Patel Ketones Ql (U) Negative Normal NEGATIVE [facility] Comment on above: Performed By: #### T SH, LIPID, T4, FT3, CMP #### [facility] [address] [place] [address] Dr. Alicia Patel LEUKOCYTES Negative Normal NEGATIVE [facility] Comment on above: Performed By: #### T SH, LIPID, T4, FT3, CMP #### [facility] [address] [place] [address] Dr. Alicia Patel MUCOUS NONE SEEN Normal NONE SEEN [facility] Comment on above: Performed By: #### T SH, LIPID, T4, FT3, CMP #### [facility] [address] [place] [address] Dr. Alicia Patel Nitrite Ql (U) Negative Normal NEGATIVE [facility] Comment on above: Performed By: #### T SH, LIPID, T4, FT3, CMP #### [facility] [address] [place] [address] Dr. Alicia Patel pH (U) 6.0 [pH] Normal 5-9 [facility] Comment on above: Performed By: #### T SH, LIPID, T4, FT3, CMP #### [facility] [address] [place] [address] Dr. Alicia Patel RBC 20-50 Abnormal 0-2 [facility] Comment on above: Performed By: #### T SH, LIPID, T4, FT3, CMP #### [facility] [address] [place] [address] Dr. Alicia Patel SPEC GRAVITY 1.020 Normal 1.005-<=1. 025 [facility] Comment on above: Performed By: #### T SH, LIPID, T4, FT3, CMP #### [facility] [address] [place] [address] Dr. Alicia Patel UA PROTEIN 100 mg/dl Abnormal NEGATIVE/ TRACE The [facility] Comment on above: Performed By: #### T SH, LIPID, T4, FT3, CMP #### [facility] [address] [place] [address] Dr. Alicia Patel Urobilinogen Qn (U) 0.2 {Wil'U}/dL Normal 0.2 - 1. 0 [facility] [facility] Comment on above: Performed By: #### T SH, LIPID, T4, FT3, CMP #### [facility] [address] [place] [address] Dr. Alicia Patel WBC 0-2 Abnormal NONE SEEN [facility] Comment on above: Performed By: #### T SH, LIPID, T4, FT3, CMP #### [facility] [address] [place] [address] Dr. Alicia Patel URIC ACID SERUMon 09-13-2022 Urate [Mass/Vol] 5.8 mg/dL Normal 3.5-7.2 [facility] Comment on above: Performed By: #### U RTPCR #### [facility] [address] [place] [address] Dr. Alicia Patel URINE T PROTEIN CREAT RATIOo n 09-13-2022 Protein (U) [Mass/Vol] 122.4 mg/dL Critically high <=12.0 [facility] Comment on above: Performed By: #### U RTPCR #### [facility] [address] [place] [address] Dr. Alicia Patel UR PROT CREAT RAT 1.38 Normal [facility] Comment on above: Performed By: #### U RTPCR #### [facility] [address] [place] [address] Dr. Alicia Patel URINE CREAT 88.74 mg/dL Normal 20.00-300. 00 [facility] Comment on above: Performed By: #### U RTPCR #### [facility] [address] [place] [address] Dr. Alicia Patel VITAMIN D 25 OHon 09-13-2022 VIT D 25-OH 58.0 ng/mL Normal [facility] Comment on above: Performed By: #### T SH, LIPID, T4, FT3, CMP #### [facility] [address] [place], [place] [address] Dr. Alicia Patel VIT D RANGES SEE BELOW Normal [facility] Comment on above: Result Comment: <20 ng/mL Vit D deficient 20 - <30 ng/mL Vit D insufficient 30 - 100 ng/mL Vit D sufficient >100 ng/mL Potential Toxicity Performed By: #### T SH, LIPID, T4, FT3, CMP #### [facility] [address] [place], [place] [address] Dr. Alicia Patel US KIDNEYSon 09-01-2022 US KIDNEYS EXAMINATION: US KIDRiki EYS HISTORY: Kidney stone COMPARISON: No relevant comparison [...] by: TYLER MONSIVAIS Date: 2022-09-01 09:33 Normal [facility] PSA, FREE AND TOTAL RATIOon 08-25-2022 % Free PSA 13.7 % Normal [facility] Comment on above: Result Comment: The [...] T SH, LIPID, T4, FT3, CMP #### [facility] [address] [place] [address] Dr. Alicia Patel Prostate specific Ag [Mass/Vol] 6.2 ng/mL Critically high 0.0-4.0 [facility] Comment on above: Result Comment: Dwight linares ECLIA methodology. . According to the [employer], Serum PSA should decrease and [...] T SH, LIPID, T4, FT3, CMP #### [facility] [address] [place] [address] Dr. Alicia Patel PSA, Free 0.85 ng/mL Normal N/A [facility] Comment on above: Result Comment: Roch vijay ECLIA methodology. Performed By: #### T SH, LIPID, T4, FT3, CMP #### [facility] [address] [place] [address] Dr. Alicia Patel OCC BLD IMMUNO SCREENon 07-29 OCCULT BLOOD Negative Normal NEGATIVE [facility] Comment on above: Performed By: #### T SH, LIPID, T4, FT3, CMP #### [facility] [address] [place] [address] Dr. Alicia Patel CBC AUTO DIFFon 08-21-2022 BASO # 0.0 103/ul Normal 0.0-0.1 [facility] Comment on above: Performed By: #### U RTPCR #### [facility] [address] [place] [address] Dr. Alicia Patel Basophils/100 WBC (Bld) 0.3 % Normal 0.2-2.0 [facility] Comment on above: Performed By: #### U RTPCR #### [facility] [address] [place] [address] Dr. Alicia Patel EO # 0.2 103/ul Normal 0.0-0.7 [facility] Comment on above: Performed By: #### U RTPCR #### [facility] [address] [place] [address] Dr. Alicia Patel Eosinophils/100 WBC (Bld) 3.2 % Normal 0.9-7.0 [facility] Comment on above: Performed By: #### U RTPCR #### [facility] [address] [place] [address] Dr. Alicia Patel Erythrocyte distribution width (RBC) [Ratio] 12.9 % Normal 11.0-15.0 [facility] Comment on above: Performed By: #### U RTPCR #### [facility] [address] [place] [address] Dr. Alicia Patel Hematocrit (Bld) [Volume fraction] 35.4 % Critically low 42.0-54.0 [facility] Comment on above: Performed By: #### U RTPCR #### [facility] [address] [place] [address] Dr. Alicia Patel Hemoglobin (Bld) [Mass/Vol] 11.7 g/dL Critically low 14.0-18.0 [facility] Comment on above: Performed By: #### U RTPCR #### [facility] [address] [place] [address] Dr. Alicia Patel IG # 0.08 10e3/ul Critically high 0.00-0.03 [facility] Comment on above: Performed By: #### U RTPCR #### [facility] [address] [place] [address] Dr. Alicia Patel IG % 1.2 % Critically high 0.0-0.5 [facility] Comment on above: Performed By: #### U RTPCR #### [facility] [address] [place] [address] Dr. Alicia Patel LYMPH # 1.1 103/ul Critically low 1.2-3.8 [facility] Comment on above: Performed By: #### U RTPCR #### [facility] [address] [place] [address] Dr. Alicia Patel Lymphocytes/100 WBC (Bld) 16.6 % Critically low 20.5-60.0 [facility] Comment on above: Performed By: #### U RTPCR #### [facility] [address] [place] [address] Dr. Alicia Patel MANUAL DIFF REQ NO Normal [facility] Comment on above: Performed By: #### U RTPCR #### [facility] [address] [place] [address] Dr. Alicia Patel MCH (RBC) [Entitic mass] 32.4 pg Normal 25.9-34.0 [facility] Comment on above: Performed By: #### U RTPCR #### [facility] [address] [place] [address] Dr. Alicia Patel MCHC (RBC) [Mass/Vol] 33.1 g/dL Normal 29.9-35.2 [facility] Comment on above: Performed By: #### U RTPCR #### [facility] [address] [place] [address] Dr. Alicia Patel MCV (RBC) [Entitic vol] 98.1 fL Critically high 80.0-94.0 [facility] Comment on above: Performed By: #### U RTPCR #### [facility] [address] [place] [address] Dr. Alicia Patel MONO # 0.6 103/ul Normal 0.3-0.8 [facility] Comment on above: Performed By: #### U RTPCR #### [facility] [address] [place] [address] Dr. Alicia Patel Monocytes/100 WBC (Bld) 8.8 % Normal 1.7-12.0 [facility] Comment on above: Performed By: #### U RTPCR #### [facility] [address] [place] [address] Dr. Alicia Patel NEUT # 4.8 103/ul Normal 1.4-6.5 [facility] Comment on above: Performed By: #### U RTPCR #### [facility] [address] [place] [address] [address] Alicia Patel Neutrophils/100 WBC (Bld) 69.9 % Normal 43.0-75.0 [facility] Comment on above: Performed By: #### U RTPCR #### [facility] [address] [place] [address] [address] Alicia Patel Platelet mean volume (Bld) [Entitic vol] 10.4 fL Normal 9.5-13.5 [facility] Comment on above: Performed By: #### U RTPCR #### [facility] [address] [place] [address] Dr. Alicia Patel PLT 200 103/ul Normal 150-450 [facility] Comment on above: Performed By: #### U RTPCR #### [facility] [address] [place] [address] Dr. Alicia Patel RBC 3.61 106/ul Critically low 4.70-6.10 [facility] Comment on above: Performed By: #### U RTPCR #### [facility] [address] [place] [address] Dr. Alicia Patel WBC 6.8 103/ul Normal 4.0-11.0 [facility] Comment on above: Performed By: #### U RTPCR #### [facility] [address] [place] [address] Dr. Alicia Patel FREE T3on 08-21-2022 FREE T3 1.91 pg/mlL Critically low 2.18-3.98 [facility] Comment on above: Performed By: #### T SH, LIPID, T4, FT3, CMP #### [facility] [address] [place] [address] Dr. Alicia Patel GLYCOHEMOGLOBIN A1Con 2022 ADA RECOMMENDATION SEE BELOW Normal [facility] Comment on above: Result Comment: ADA RECOMMENDED LIMIT 4.0 - 6.0 ADA THERAPEUTIC TARGET < 7.0 ACTION SUGGESTED > 7.0 Performed By: #### T SH, LIPID, T4, FT3, CMP #### [facility] [address] [place] [address] [address] Alicia Patel Glucose [Mass/Vol] 194 mg/dL Normal [facility] Comment on above: Performed By: #### T SH, LIPID, T4, FT3, CMP #### [facility] [address] [place] [address] [address] Alicia Patel HbA1c (Bld) [Mass fraction] 8.4 % Critically high 4.5-6.2 [facility] Comment on above: Performed By: #### T SH, LIPID, T4, FT3, CMP #### [facility] [address] [place] [address] [address] Alicia Patel LIPID PROFILEon 08-21-2022 CHOL-HDL RATIO NORM SEE BELOW Normal [facility] Comment on above: Result Comment: 3.3 - 4.4 LOW RISK 4.4 - 7.1 AVERAGE RISK 7.1 - 11.0 MODERATE RISK >11.0 HIGH RISK Performed By: #### T SH, LIPID, T4, FT3, CMP #### [facility] [address] [place] [address] [address] Alicia Patel Cholesterol [Mass/Vol] 120 mg/dL Normal <=200 Th [facility] Comment on above: Performed By: #### T SH, LIPID, T4, FT3, CMP #### [facility] [address] [place] [address] [address] Alicia Patel Cholesterol in HDL [Mass/Vol] 30 mg/dL Critically low 40-60 [facility] Comment on above: Performed By: #### T SH, LIPID, T4, FT3, CMP #### [facility] [address] [place] [address] [address] Alicia Patel Cholesterol in LDL [Mass/Vol] 59.8 mg/dL Normal [facility] Comment on above: Performed By: #### T SH, LIPID, T4, FT3, CMP #### [facility] [address] [place] [address] [address] Alicia Patel Cholesterol.total/Chol esterol in HDL [Mass ratio] 4.0 {ratio} Normal [facility] Comment on above: Performed By: #### T SH, LIPID, T4, FT3, CMP #### [facility] [address] [place] [address] [address] Alicia Patel HDL NORMAL > or = 60 mg/dl - LO W CARDIOVASCULAR RISK <40 mg/dl - HIGH CARDIOVASCULAR RISK Normal [facility] Comment on above: Performed By: #### T SH, LIPID, T4, FT3, CMP #### [facility] [address] [place] [address] [address] Alicia Patel LDL CALC NORMAL SEE BELOW Normal [facility] Comment on above: Result Comment: <100 mg/dl OPTIMAL 100 - 129 mg/dl NEAR OR ABOVE OPTIMAL 130 - 159 mg/dl BORDERLINE HIGH 160 - 189 mg/dl HIGH >190 mg/dl VERY HIGH Performed By: #### T SH, LIPID, T4, FT3, CMP #### [facility] [address] [place] [address] Dr. Alicia Patel Triglyceride [Mass/Vol] 151 mg/dL Critically high <=150 [facility] Comment on above: Performed By: #### T SH, LIPID, T4, FT3, CMP #### [facility] [address] [place] [address] Dr. Alicia Patel VLDL CALC 30.2 mg/dL Normal [facility] Comment on above: Performed By: #### T SH, LIPID, T4, FT3, CMP #### [facility] [address] [place] [address] Dr. Alicia Patel PROF 14(COMP METB)on 08-21- 023 Albumin [Mass/Vol] 3.3 g/dL Critically low 3.4-5.0 Th e [facility] Comment on above: Performed By: #### T SH, LIPID, T4, FT3, CMP #### [facility] [address] [place] [address] Dr. Alicia Patel Albumin/Globulin [Mass ratio] 0.9 {ratio} Normal [facility] Comment on above: Performed By: #### T SH, LIPID, T4, FT3, CMP #### [facility] [address] [place] [address] Dr. Alicia Patel ALP [Catalytic activity/Vol] 79 U/L Normal 46-116 [facility] Comment on above: Performed By: #### T SH, LIPID, T4, FT3, CMP #### [facility] [address] [place] [address] [address] Alicia Patel ALT [Catalytic activity/Vol] 61 U/L Normal 16-63 [facility] Comment on above: Performed By: #### T SH, LIPID, T4, FT3, CMP #### [facility] [address] [place] [address] [address] Alicia Patel Anion gap [Moles/Vol] 12.6 mmol/L Normal Th e [facility] Comment on above: Performed By: #### T SH, LIPID, T4, FT3, CMP #### [facility] [address] [place] [address] Dr. Alicia Patel AST [Catalytic activity/Vol] 39 U/L Critically high 15-37 [facility] Comment on above: Performed By: #### T SH, LIPID, T4, FT3, CMP #### [facility] [address] [place] [address] Dr. Alicia Patel Bilirubin [Mass/Vol] 0.7 mg/dL Normal 0.2-1.0 [facility] Comment on above: Performed By: #### T SH, LIPID, T4, FT3, CMP #### [facility] [address] [place] [address] Dr. Alicia Patel Calcium [Mass/Vol] 8.9 mg/dL Normal 8.5-10.1 [facility] Comment on above: Performed By: #### T SH, LIPID, T4, FT3, CMP #### [facility] [address] [place] [address] Dr. Alicia Patel Chloride [Moles/Vol] 111 mmol/L Critically high 98-107 [facility] Comment on above: Performed By: #### T SH, LIPID, T4, FT3, CMP #### [facility] [address] [place] [address] Dr. Alicia Patel CO2 [Moles/Vol] 24.0 mmol/L Normal 21.0-32.0 [facility] Comment on above: Performed By: #### T SH, LIPID, T4, FT3, CMP #### [facility] [address] [place] [address] Dr. Alicia Patel Creatinine [Mass/Vol] 1.80 mg/dL Critically high 0.70-1.30 [facility] Comment on above: Performed By: #### T SH, LIPID, T4, FT3, CMP #### [facility] [address] [place] [address] Dr. Alicia Patel EGFR-AF AUSTRIAN 44 mL/min/1.73m2 Critically low >=60 [facility] Comment on above: Performed By: #### T SH, LIPID, T4, FT3, CMP #### [facility] [address] [place] [address] Dr. Alicia Patel EGFR-NON AF AUSTRIAN 36 mL/min/1.73m2 Critically low >=60 [facility] Comment on above: Performed By: #### T SH, LIPID, T4, FT3, CMP #### [facility] [address] [place] [address] Dr. Alicia Patel Globulin (S) [Mass/Vol] 3.5 g/dL Normal [facility] Comment on above: Performed By: #### T SH, LIPID, T4, FT3, CMP #### [facility] [address] [place] [address] Dr. Alicia Patel Glucose [Mass/Vol] 118 mg/dL Critically high 74-106 [facility] Comment on above: Performed By: #### T SH, LIPID, T4, FT3, CMP #### [facility] [address] [place] [address] Dr. Alicia Patel Potassium [Moles/Vol] 4.6 mmol/L Normal 3.5-5.1 [facility] Comment on above: Performed By: #### T SH, LIPID, T4, FT3, CMP #### [facility] [address] [place] [address] Dr. Alicia Patel Protein [Mass/Vol] 6.8 g/dL Normal 6.4-8.2 [facility] Comment on above: Performed By: #### T SH, LIPID, T4, FT3, CMP #### [facility] [address] [place] [address] Dr. Alicia Patel Sodium [Moles/Vol] 143 mmol/L Normal 136-145 [facility] Comment on above: Performed By: #### T SH, LIPID, T4, FT3, CMP #### [facility] [address] [place] [address] Dr. Alicia Patel Urea nitrogen [Mass/Vol] 31.0 mg/dL Critically high 7.0-18.0 [facility] Comment on above: Performed By: #### T SH, LIPID, T4, FT3, CMP #### [facility] [address] [place] [address] Dr. Alicia Patel Urea nitrogen/Creatinine [Mass ratio] 17.2 mg/mg Normal [facility] Comment on above: Performed By: #### T SH, LIPID, T4, FT3, CMP #### [facility] [address] [place] [address] Dr. Alicia Patel T4on 08-21-2022 T4 [Mass/Vol] 7.70 ug/dL Normal 4.50-12.10 [facility] Comment on above: Performed By: #### T SH, LIPID, T4, FT3, CMP #### [facility] [address] [place] [address] Dr. Alicia Patel TSHon 08-21-2022 TSH 1.138 uIU/mL Normal 0.358-3.74 0 [facility] Comment on above: Performed By: #### T SH, LIPID, T4, FT3, CMP #### [facility] [address] [place] [address] Dr. Alicia Patel RENAL FUNCTION PANELon 08-18 Albumin [Mass/Vol] 3.3 g/dL Critically low 3.4-5.0 Th e [facility] Comment on above: Performed By: #### U RTPCR #### [facility] [address] [place] [address] Dr. Alicia Patel Calcium [Mass/Vol] 8.3 mg/dL Critically low 8.5-10.1 Th e [facility] Comment on above: Performed By: #### U RTPCR #### [facility] [address] [address] [address] Alicia Patel Chloride [Moles/Vol] 109 mmol/L Critically high 98-107 [facility] Comment on above: Performed By: #### U RTPCR #### [facility] [address] [place] [address] Dr. Alicia Patel CO2 [Moles/Vol] 22.1 mmol/L Normal 21.0-32.0 [facility] Comment on above: Performed By: #### U RTPCR #### [facility] [address] [place] [address] Dr. Alicia Patel Creatinine [Mass/Vol] 2.14 mg/dL Critically high 0.70-1.30 [facility] Comment on above: Performed By: #### U RTPCR #### [facility] [address] [place] [address] Dr. Alicia Patel EGFR-AF AUSTRIAN 36 mL/min/1.73m2 Critically low >=60 [facility] Comment on above: Performed By: #### U RTPCR #### [facility] [address] [place] [address] Dr. Alicia Patel EGFR-NON AF AUSTRIAN 30 mL/min/1.73m2 Critically low >=60 [facility] Comment on above: Performed By: #### U RTPCR #### [facility] [address] [place] [address] Dr. Alicia Patel Glucose [Mass/Vol] 102 mg/dL Normal 74-106 [facility] Comment on above: Performed By: #### U RTPCR #### [facility] [address] [place] [address] Dr. Alicia Patel Phosphate [Mass/Vol] 3.1 mg/dL Normal 2.6-4.7 [facility] Comment on above: Performed By: #### U RTPCR #### [facility] [address] [place] [address] Dr. Alicia Patel Potassium [Moles/Vol] 3.9 mmol/L Normal 3.5-5.1 [facility] Comment on above: Performed By: #### U RTPCR #### [facility] [address] [address] [address] Alicia Patel Sodium [Moles/Vol] 141 mmol/L Normal 136-145 [facility] Comment on above: Performed By: #### U RTPCR #### [facility] [address] [id number] Alicia Patel Urea nitrogen [Mass/Vol] 41.0 mg/dL Critically high 7.0-18.0 [facility] Comment on above: Performed By: #### U RTPCR #### [facility] [address] [address] [address] Alicia Patel Creatinine and Glomerular fi ltration rate.predicted panel (S/P/Bld)Ordered By: Hiral Interiano on 08-15-2022 Creatinine [Mass/Vol] 3.46 mg/dL 0.64-1.27 [facility] Comment on above: Delta: 6.60 on 08/14-3 Estimated glomerular filtrat ion rate (GFR) non- AmericanOrdered By: Hiral Interiano on 08-15-2022 GFR/1.73 sq M.predicted among non-blacks MDRD (S/P/Bld) [Vol rate/Area] 17 mL/Min [facility] Glucose Glucometer (BldC) [M ass/Vol]Ordered By: Hiral Interiano on 08-15-2022 Glucose [Mass/Vol] 135 mg/dL [facility] Comment on above: Random Glucose Refer ence Range is dependent on time and content of last meal. Glucose of more than 200 mg/dL in a nonstressed, ambulatory subject supports the diagnosis of Diabetes Mellitus. No Panel InformationOrdered By: Hiral Interiano on 08-15-2022 Estimated GFR () 21 mL/Min [facility] Comment on above: GFR estimated refere nce range: According to KDOQI guidelines, <60 ml/min/1.73m2 is sufficient to diagnose a patient with chronic kidney disease. Pharmacy Creatinine Clearance (Chem 21.94 [facility] Serum or plasma anion gap de terminationOrdered By: Hiral Interiano on 08-15-2022 Anion gap [Moles/Vol] 10.3 mmol/L 6.0-15.0 [facility] Serum or plasma calcium alpesh urement (mass/volume)Ordered By: Hiral Interiano on 08-15-2022 Calcium [Mass/Vol] 7.7 mg/dL 8.2-10.[address] [facility] Serum or plasma chloride adina surement (moles/volume)Ordered By: Hiral Interiano on 08-15-2022 Chloride [Moles/Vol] 112 mmol/L 95-114 [facility] Serum or plasma glucose alpesh urement (mass/volume)Ordered By: Hiral Interiano on 08-15-2022 Glucose [Mass/Vol] 140 mg/dL 70-[address] [facility] Comment on above: ADA recommended refe rence rangeRandom Glucose Reference Range is dependent on time and content of last meal. Glucose of more than 200 mg/dL in a nonstressed, ambulatory subject supports the diagnosis of Diabetes Mellitus. Serum or plasma potassium me asurement (moles/volume)Ordered By: Hiral Interiano on 08-15-2022 Potassium [Moles/Vol] 3.8 mmol/L 3.5-5.1 [facility] Serum or plasma sodium measu rement (moles/volume)Ordered By: Hiral Interiano on 08-15-2022 Sodium [Moles/Vol] 140 mmol/L 136-[address] [facility] Serum or plasma total carbon dioxide measurement (moles/volume)Ordered By: Hiral Interiano on 08-15-2022 CO2 [Moles/Vol] 21.5 mmol/L 22.0-30.0 [facility] Serum or plasma urea nitroge n measurement (mass/volume)Ordered By: Hiral Interiano on 08-15-2022 Urea nitrogen [Mass/Vol] 45 mg/dL 9-23 [facility] Basophils Auto (Bld) [#/Vol] Ordered By: Hiral Interiano on 08-14-2022 Basophils (Bld) [#/Vol] 0.0 10*3/uL 0.0-0.2 [facility] Basophils/100 WBC Auto (Bld) Ordered By: Hiral Interiano on 08-14-2022 Basophils/100 WBC (Bld) 0.2 % . [facility] Eosinophils Auto (Bld) [#/Vo l]Ordered By: Hiral Interiano on 08-14-2022 Eosinophils (Bld) [#/Vol] 0.1 10*3/uL 0.0-0.45 [facility] Eosinophils/100 WBC Auto (Bl d)Ordered By: Hiral Interiano on 08-14-2022 Eosinophils/100 WBC (Bld) 1.0 % . [facility] Erythrocyte distribution wid th Auto (RBC) [Ratio]Ordered By: Hiral Interiano on 08-14-2022 Erythrocyte distribution width (RBC) [Ratio] 13.5 % 12.0-14.8 [facility] Hematocrit Auto (Bld) [Volum e fraction]Ordered By: Hiral Interiano on 08-14-2022 Hematocrit (Bld) [Volume fraction] 35.4 % 38.8-50.0 [facility] Hemoglobin [Mass/volume] in BloodOrdered By: Hiral Interiano on 08-14-2022 Hemoglobin (Bld) [Mass/Vol] 12.0 g/dL 13.0-17.0 [facility] Leukocytes [#/volume] correc ike for nucleated erythrocytes in Blood by Automated counOrdered By: Hiral Interiano on 08-14-2022 WBC corrected for nucl RBC Auto (Bld) [#/Vol] 7.4 10*3/uL 4.1-10.5 [facility] Lymphocytes Auto (Bld) [#/Vo l]Ordered By: Hiral Interiano on 08-14-2022 Lymphocytes (Bld) [#/Vol] 0.6 10*3/uL 1.00-4.8 [facility] Lymphocytes/100 WBC Auto (Bl d)Ordered By: Hiral Interiano on 08-14-2022 Lymphocytes/100 WBC (Bld) 7.8 % . [facility] MCH Auto (RBC) [Entitic mass ]Ordered By: Hiral Interiano on 08-14-2022 MCH (RBC) [Entitic mass] 33.0 pg 27.5-35.2 [facility] MCHC Auto (RBC) [Mass/Vol]Or dered By: Hiral Interiano on 08-14-2022 MCHC (RBC) [Mass/Vol] 33.9 g/dL 32.5-35.6 [facility] MCV Auto (RBC) [Entitic vol] Ordered By: Hiral Interiano on 08-14-2022 MCV (RBC) [Entitic vol] 97.3 fL 83.5-101 [facility] Monocytes Auto (Bld) [#/Vol] Ordered By: Hiral Interiano on 08-14-2022 Monocytes (Bld) [#/Vol] 0.8 10*3/uL 0.0-0.8 [facility] Monocytes/100 WBC Auto (Bld) Ordered By: Hiral Interiano on 08-14-2022 Monocytes/100 WBC (Bld) 11.4 % . [facility] Neutrophils Auto (Bld) [#/Vo l]Ordered By: Hiral Interiano on 08-14-2022 Neutrophils (Bld) [#/Vol] 5.9 10*3/uL 1.8-7.7 [facility] Neutrophils/100 WBC Auto (Bl d)Ordered By: Hiral Interiano on 08-14-2022 Neutrophils/100 WBC (Bld) 79.6 % . [facility] No Panel InformationOrdered By: Hiral Interiano on 08-14-2022 Bedside Glucose Comment Glu2: cleaned meter [facility] Nucleated erythrocytes [Pres ence] in Blood by Automated countOrdered By: Hiral Interiano on 08-14-2022 Nucleated RBC Auto Ql (Bld) 0.1 /100{WBC} 0-0.5 [facility] Platelet mean volume Auto (B ld) [Entitic vol]Ordered By: Hiral Interiano on 08-14-2022 Platelet mean volume (Bld) [Entitic vol] 8.4 fL 6.6-10.1 [facility] Platelets Auto (Bld) [#/Vol] Ordered By: Hiral Interiano on 08-14-2022 Platelets (Bld) [#/Vol] 121 10*3/uL 150-450 [facility] RBC Auto (Bld) [#/Vol]Ordere d By: Hiral Interiano on 08-14-2022 RBC (Bld) [#/Vol] 3.64 10*6/uL 3.90-5.60 [facility] WBC Auto (Bld) [#/Vol]Ordere d By: Hiral Interiano on 08-14-2022 WBC (Bld) [#/Vol] 7.4 10*3/uL 4.1-10.[address] [facility] Body fluid albumin measureme nt (mass/volume)Ordered By: Alicia León on 08-13-2022 Albumin (Body fld) [Mass/Vol] 3.0 g/dL 3.2-5.5 [facility] Glucose mean value [Mass/vol ume] in Blood Estimated from glycated hemoglobinOrdered By: Hiral Interiano on 08-12-2022 Average glucose Estimated from glycated hemoglobin (Bld) [Mass/Vol] 212 mg/dL [facility] Hemoglobin A1c percentageOrd ered By: Hiral Interiano on 08-12-2022 HbA1c (Bld) [Mass fraction] 9.0 % 4.3-5.6 [facility] Comment on above: Increased risk for d iabetes: 5.7 - 6.4diabetes: >6.4glycemic control for adults with diabetes: <7.0 Anisocytosis LM Ql (Bld)Orde red By: Hiral Interiano on 08-11-2022 Anisocytosis Ql (Bld) Slight [facility] Band form neutrophils/100 WB C Manual cnt (Bld)Ordered By: Hiral Interiano on 08-11-2022 Band form neutrophils/100 WBC (Bld) 1 % 0-5 [facility] Beta-hydroxybutyric acid adina surementOrdered By: Alicia León on 08-11-2022 Beta hydroxybutyrate [Mass/Vol] 2.40 mmol/L 0.05-0.27 [facility] Imnaha cells [Presence] in Blo od by Light microscopyOrdered By: Hiral Interiano on 08-11-2022 Imnaha cells LM Ql (Bld) Slight [facility] CARDIAC GUIDO 3-6on 3 CK [Catalytic activity/Vol] 162 U/L Normal 39-308 [facility] Comment on above: Performed By: #### T SH, LIPID, T4, FT3, CMP #### [facility] Laboratory [address] [address] [address] Alicia Patel CK.MB [Mass/Vol] 5.52 ng/mL Critically high <=3.60 [facility] Comment on above: Performed By: #### T SH, LIPID, T4, FT3, CMP #### [facility] [address] [address] [address] Alicia Patel HSTROP 19.7 pg/mL Normal 4.0-76.1 [facility] Comment on above: Result Comment: CUT- OFF POINTS HAVE BEEN ESTABLISHED BASED ON THE FOURTH UNIVERSAL DEFINITIONS OF MYOCARDIAL INFARCTION. THE UPPER REFERENCE LIMIT (URL) OF TROPONIN, DEFINED THE 99TH PERCENTILE OF cTnI DISTRIBUTION IN A REFERENCE POPULATION, HAS BEEN CONFIRMED THE DECISION THRESHOLD FOR WI DIAGNOSIS. Performed By: #### T SH, LIPID, T4, FT3, CMP #### [facility] [address] [address] [address] Alicia Patel CK [Catalytic activity/Vol] 150 U/L Normal 39-308 [facility] Comment on above: Performed By: #### T SH, LIPID, T4, FT3, CMP #### [facility] [address] [address] [address] Alicia Patel CK.MB [Mass/Vol] 4.99 ng/mL Critically high <=3.60 [facility] Comment on above: Performed By: #### T SH, LIPID, T4, FT3, CMP #### [facility] [address] [place] [address] Dr. Alicia Patel HSTROP 16.9 pg/mL Normal 4.0-76.1 [facility] Comment on above: Result Comment: CUT- OFF POINTS HAVE BEEN ESTABLISHED BASED ON THE FOURTH UNIVERSAL DEFINITIONS OF MYOCARDIAL INFARCTION. THE UPPER REFERENCE LIMIT (URL) OF TROPONIN, DEFINED THE 99TH PERCENTILE OF cTnI DISTRIBUTION IN A REFERENCE POPULATION, HAS BEEN CONFIRMED THE DECISION THRESHOLD FOR WI DIAGNOSIS. Performed By: #### T SH, LIPID, T4, FT3, CMP #### [facility] [address] [place] [address] Dr. Alicia Patel CARDIAC GUIDO ADMITon 023 CK [Catalytic activity/Vol] 128 U/L Normal 39-308 [facility] Comment on above: Performed By: #### T SH, LIPID, T4, FT3, CMP #### [facility] [address] [place] [address] Dr. Alicia Patel CK.MB [Mass/Vol] 4.95 ng/mL Critically high <=3.60 [facility] Comment on above: Performed By: #### T SH, LIPID, T4, FT3, CMP #### [facility] [address] [place] [address] Dr. Alicia Patel HSTROP 18.0 pg/mL Normal 4.0-76.1 [facility] Comment on above: Result Comment: CUT- OFF POINTS HAVE BEEN ESTABLISHED BASED ON THE FOURTH UNIVERSAL DEFINITIONS OF MYOCARDIAL INFARCTION. THE UPPER REFERENCE LIMIT (URL) OF TROPONIN, DEFINED THE 99TH PERCENTILE OF cTnI DISTRIBUTION IN A REFERENCE POPULATION, HAS BEEN CONFIRMED THE DECISION THRESHOLD FOR [place] DIAGNOSIS. Performed By: #### T SH, LIPID, T4, FT3, CMP #### [facility] [address] [place] [address] Dr. Alicia Patel LIZZY 188 ng/mL Critically high 16-96 [facility] Comment on above: Performed By: #### T SH, LIPID, T4, FT3, CMP #### [facility] [address] [place] [address] Dr. Alicia Patel CBC AUTO DIFFon 08-11-2022 BASO # 0.0 103/ul Normal 0.0-0.1 [facility] Comment on above: Performed By: #### T SH, LIPID, T4, FT3, CMP #### [facility] [address] [place] [address] Dr. Alicia Patel Basophils/100 WBC (Bld) 0.3 % Normal 0.2-2.0 [facility] Comment on above: Performed By: #### T SH, LIPID, T4, FT3, CMP #### [facility] [address] [place] [address] Dr. Alicia Patel EO # 0.2 103/ul Normal 0.0-0.7 [facility] Comment on above: Performed By: #### T SH, LIPID, T4, FT3, CMP #### [facility] [address] [place] [address] Dr. Alicia Patel Eosinophils/100 WBC (Bld) 1.8 % Normal 0.9-7.0 [facility] Comment on above: Performed By: #### T SH, LIPID, T4, FT3, CMP #### [facility] [address] [place] [address] Dr. Alicia Patel Erythrocyte distribution width (RBC) [Ratio] 13.2 % Normal 11.0-15.0 [facility] Comment on above: Performed By: #### T SH, LIPID, T4, FT3, CMP #### [facility] [address] [place] [address] Dr. Alicia Patel Hematocrit (Bld) [Volume fraction] 36.0 % Critically low 42.0-54.0 [facility] Comment on above: Performed By: #### T SH, LIPID, T4, FT3, CMP #### [facility] [address] [place] [address] Dr. Alicia Patel Hemoglobin (Bld) [Mass/Vol] 12.0 g/dL Critically low 14.0-18.0 [facility] Comment on above: Performed By: #### T SH, LIPID, T4, FT3, CMP #### [facility] [address] [place] [address] Dr. Alicia Patel IG # 0.34 10e3/ul Critically high 0.00-0.03 [facility] Comment on above: Performed By: #### T SH, LIPID, T4, FT3, CMP #### [facility] [address] [place] [address] Dr. Alicia Patel IG % 3.8 % Critically high 0.0-0.5 [facility] Comment on above: Performed By: #### T SH, LIPID, T4, FT3, CMP #### [facility] [address] [place] [address] Dr. Alicia Patel LYMPH # 0.5 103/ul Critically low 1.2-3.8 [facility] Comment on above: Performed By: #### T SH, LIPID, T4, FT3, CMP #### [facility] [address] [place] [address] Dr. Alicia Patle Lymphocytes/100 WBC (Bld) 5.9 % Critically low 20.5-60.0 [facility] Comment on above: Performed By: #### T SH, LIPID, T4, FT3, CMP #### [facility] [address] [place] [address] Dr. Alicia Patel MANUAL DIFF REQ NO Normal [facility] Comment on above: Performed By: #### T SH, LIPID, T4, FT3, CMP #### [facility] [address] [place] [address] Dr. Alicia Patel MCH (RBC) [Entitic mass] 32.3 pg Normal 25.9-34.0 [facility] Comment on above: Performed By: #### T SH, LIPID, T4, FT3, CMP #### [facility] [address] [place] [address] Dr. Alicia Patel MCHC (RBC) [Mass/Vol] 33.3 g/dL Normal 29.9-35.2 [facility] Comment on above: Performed By: #### T SH, LIPID, T4, FT3, CMP #### [facility] [address] [place] [address] Dr. Alicia Patel MCV (RBC) [Entitic vol] 97.0 fL Critically high 80.0-94.0 [facility] Comment on above: Performed By: #### T SH, LIPID, T4, FT3, CMP #### [facility] [address] [place] [address] Dr. Alicia Patel MONO # 0.5 103/ul Normal 0.3-0.8 [facility] Comment on above: Performed By: #### T SH, LIPID, T4, FT3, CMP #### [facility] [address] [place] [address] Dr. Alicia Patel Monocytes/100 WBC (Bld) 5.5 % Normal 1.7-12.0 [facility] Comment on above: Performed By: #### T SH, LIPID, T4, FT3, CMP #### [facility] [address] [place] [address] Dr. Alicia Patel NEUT # 7.5 103/ul Critically high 1.4-6.5 [facility] Comment on above: Performed By: #### T SH, LIPID, T4, FT3, CMP #### [facility] [address] [place] [address] Dr. Alicia Patel Neutrophils/100 WBC (Bld) 82.7 % Critically high 43.0-75.0 [facility] Comment on above: Performed By: #### T SH, LIPID, T4, FT3, CMP #### [facility] [address] [place] [address] Dr. Alicia Patel Platelet mean volume (Bld) [Entitic vol] 10.2 fL Normal 9.5-13.5 [facility] Comment on above: Performed By: #### T SH, LIPID, T4, FT3, CMP #### [facility] [address] [place] [address] Dr. Alicia Patel PLT 191 103/ul Normal 150-450 [facility] Comment on above: Performed By: #### T SH, LIPID, T4, FT3, CMP #### [facility] [address] [place] [address] Dr. Alicia Patel RBC 3.71 106/ul Critically low 4.70-6.10 [facility] Comment on above: Performed By: #### T SH, LIPID, T4, FT3, CMP #### [facility] [address] [place] [address] Dr. Alicia Patel WBC 9.0 103/ul Normal 4.0-11.0 [facility] Comment on above: Performed By: #### T SH, LIPID, T4, FT3, CMP #### [facility] [address] [address] [address] ABD/PELVIS WO CONon [...] ILA GALLEGO Date: 2022-08-11 08:38 Normal [facility] Covid-19 PCR (CVDTB)on 07-28 SARS-CoV-2 (COVID-19) RNA SAVANNAH+probe Ql (Unsp spec) Not detected Normal NOT DETECTED [facility] Comment on above: Result Comment: When diagnostic [...] for this test is supported by the [place] of [employer] and Human Service's declaration that [...] T SH, LIPID, T4, FT3, CMP #### [facility] [address] [place] [address] Dr. Alicia Patel ER URINE PROFILEon 3 Bilirubin Ql (U) Negative Normal NEGATIVE [facility] Comment on above: Performed By: #### T SH, LIPID, T4, FT3, CMP #### [facility] [address] [place] [address] Dr. Alicia Patel Clarity (U) CLEAR Normal CLEAR [facility] Comment on above: Performed By: #### T SH, LIPID, T4, FT3, CMP #### [facility] [address] [place] [address] Dr. Alicia Patel Color (U) LT. YELLOW Normal YELLOW [facility] Comment on above: Performed By: #### T SH, LIPID, T4, FT3, CMP #### [facility] [address] [place] [address] Dr. Alicia MANTILLA A micrscopic examina tion will be performed if indicated. Normal [facility] Comment on above: Performed By: #### T SH, LIPID, T4, FT3, CMP #### [facility] [address] [place] [address] Dr. Alicia Patel Glucose Ql (U) Negative Normal NEGATIVE [facility] Comment on above: Performed By: #### T SH, LIPID, T4, FT3, CMP #### [facility] [address] [place] [address] Dr. Alicia Patel Hemoglobin Ql (U) SMALL Abnormal NEGATIVE [facility] Comment on above: Performed By: #### T SH, LIPID, T4, FT3, CMP #### [facility] [address] [place] [address] Dr. Alicia Patel Ketones Ql (U) Negative Normal NEGATIVE [facility] Comment on above: Performed By: #### T SH, LIPID, T4, FT3, CMP #### [facility] [address] [place] [address] Dr. Alicia Patel LEUKOCYTES Negative Normal NEGATIVE [facility] Comment on above: Performed By: #### T SH, LIPID, T4, FT3, CMP #### [facility] [address] [place] [address] Dr. Alicia Patel Nitrite Ql (U) Negative Normal NEGATIVE [facility] Comment on above: Performed By: #### T SH, LIPID, T4, FT3, CMP #### [facility] [address] [place] [address] Dr. Alicia Patel pH (U) 6.0 [pH] Normal 5-9 [facility] Comment on above: Performed By: #### T SH, LIPID, T4, FT3, CMP #### [facility] [address] [place] [address] Dr. Alicia Patel Protein (U) [Mass/Vol] 100 mg/dL Abnormal NEGAT ОЛЕГ/ TRACE [facility] Comment on above: Performed By: #### T SH, LIPID, T4, FT3, CMP #### [facility] [address] [place] [address] Dr. Alicia Patel SPEC GRAVITY 1.015 Normal 1.005-<=1. 025 [facility] Comment on above: Performed By: #### T SH, LIPID, T4, FT3, CMP #### [facility] [address] [place] [address] Dr. Alicia Patel UR MICRO IND INDICATED Normal [facility] Comment on above: Performed By: #### T SH, LIPID, T4, FT3, CMP #### [facility] [address] [place] [address] Dr. Alicia Patel Urobilinogen Qn (U) 0.2 {Wil'U}/dL Normal 0.2 - 1. 0 [facility] Comment on above: Performed By: #### T SH, LIPID, T4, FT3, CMP #### [facility] [address] [address] [address] Alicia Patel Hepatitis B virus surface Ag [Presence] in Serum or Plasma by ImmunoassayOrdered By: Alicia León on 08-11-2022 HBV surface Ag IA Ql Negative Negative [facility] Hepatitis C virus IgG Ab [Pr esence] in Serum or Plasma by ImmunoassayOrdered By: Alicia León on 08-11-2022 HCV IgG IA Ql Non-Reactive Non Reactive [facility] Hepatitis C virus RNA [Units /volume] (viral load) in Serum or Plasma by SAVANNAH with probOrdered By: Alicia León on 08-11-2022 HCV RNA SAVANNAH+probe Qn N/A [facility] Hepatitis C virus RNA [log u nits/volume] (viral load) in Serum or Plasma by SAVANNAH withOrdered By: Alicia León on 08-11-2022 HCV RNA SAVANNAH+probe [Log units/Vol] N/A [facility] Laboratory - CoagulationOrde red By: Hiral Interiano on 08-11-2022 PT Coag (PPP) [Time] 12.2 s 9.0-12.9 [facility] Lymphocytes/100 WBC Manual c nt (Bld)Ordered By: Hiral Interiano on 08-11-2022 Lymphocytes/100 WBC (Bld) 5 % 18-42 [facility] Microcytes LM Ql (Bld)Ordere d By: Hiral Interiano on 08-11-2022 Microcytes Ql (Bld) Slight [facility] Monocytes/100 WBC Manual cnt (Bld)Ordered By: Hiral Interiano on 08-11-2022 Monocytes/100 WBC (Bld) 1 % 2-11 [facility] No Panel InformationOrdered By: Alicia León on 08-11-2022 Hepatitis A IgM Antibody Negative Negative [facility] Hepatitis B Core IgM Antibody Negative Negative [facility] Hepatitis C Interpretation See comment . [facility] Comment on above: Not infected with HC V unless early or acute infection issuspected (which may be delayed in an immunocompromisedindividual), or other evidence exists to indicate HCVinfection.Performed at: [facility] [place] [id number] Director: Lee Bob PhD, Phone: [phone] Hepatitis C RNA Quantitative N/A [facility] POINT OF CARE GLUCOSEon 07-28 Glucose [Mass/Vol] 132 mg/dL Critically high 74-106 [facility] Comment on above: Performed By: #### T SH, LIPID, T4, FT3, CMP #### [facility] Laboratory [address] [place] [address] Dr. Alicia Patel Glucose [Mass/Vol] 117 mg/dL Critically high 74-106 [facility] Comment on above: Performed By: #### T SH, LIPID, T4, FT3, CMP #### [facility] [address] [place] [address] Dr. Alicia Patel Glucose [Mass/Vol] 95 mg/dL Normal 74-106 [facility] Comment on above: Performed By: #### P OCGLUC #### [facility] [address] [place] [address] Dr. Alicia Patel PROF CHEM 8 (BAS METB)on Anion gap [Moles/Vol] 29.5 mmol/L Normal [facility] Comment on above: Performed By: #### T SH, LIPID, T4, FT3, CMP #### [facility] [address] [place] [address] Dr. Alicia Patel Calcium [Mass/Vol] 7.7 mg/dL Critically low 8.5-10.1 [facility] Comment on above: Performed By: #### T SH, LIPID, T4, FT3, CMP #### [facility] [address] [place] [address] Dr. Alicia Patel Chloride [Moles/Vol] 102 mmol/L Normal 98-107 [facility] Comment on above: Performed By: #### T SH, LIPID, T4, FT3, CMP #### [facility] [address] [place] [address] Dr. Alicia Patel CO2 [Moles/Vol] 13.5 mmol/L Critically low 21.0-32.0 [facility] Comment on above: Performed By: #### T SH, LIPID, T4, FT3, CMP #### [facility] [address] [place] [address] Dr. Alicia Patel Creatinine [Mass/Vol] 17.89 mg/dL Critically high 0.70-1.3 0 [facility] Comment on above: Performed By: #### T SH, LIPID, T4, FT3, CMP #### [facility] [address] [place] [address] Dr. Alicia Patel EGFR-AF AUSTRIAN 3 mL/min/1.73m2 Critically low >=60 [facility] Comment on above: Performed By: #### T SH, LIPID, T4, FT3, CMP #### [facility] [address] [place] [address] Dr. Alicia Patel EGFR-NON AF AUSTRIAN 3 mL/min/1.73m2 Critically low >=60 [facility] Comment on above: Performed By: #### T SH, LIPID, T4, FT3, CMP #### [facility] [address] [place] [address] Dr. Alicia Patel Glucose [Mass/Vol] 105 mg/dL Normal 74-106 [facility] Comment on above: Performed By: #### T SH, LIPID, T4, FT3, CMP #### [facility] [address] [place] [address] Dr. Alicia Patel Potassium [Moles/Vol] 7.0 mmol/L Critically high 3.5-5.1 [facility] Comment on above: Performed By: #### T SH, LIPID, T4, FT3, CMP #### [facility] [address] [place] [address] Dr. Alicia Patel Sodium [Moles/Vol] 138 mmol/L Normal 136-145 [facility] Comment on above: Performed By: #### T SH, LIPID, T4, FT3, CMP #### [facility] [address] [place] [address] Dr. Alicia Paetl Urea nitrogen [Mass/Vol] 156.0 mg/dL Critically high 7.0-18.0 [facility] Comment on above: Performed By: #### T SH, LIPID, T4, FT3, CMP #### [facility] [address] [place], [place] [address] Dr. Alicia Patel Urea nitrogen/Creatinine [Mass ratio] 8.7 mg/mg Normal [facility] Comment on above: Performed By: #### T SH, LIPID, T4, FT3, CMP #### [facility] [address] [place], [place] [address] Dr. Alicia Patel Platelet adequacy [Presence] in Blood by Light microscopyOrdered By: Hiral Interiano on 08-11-2022 Platelets LM Ql (Bld) Normal Normal [facility] Platelet morphology finding [Identifier] in BloodOrdered By: Hiral Interiano on 08-11-2022 Platelet morphology finding Nom (Bld) Normal Normal [facility] Platelet poor plasma interna tional normalized ratio (INR) by coagulation assay (relatOrdered By: Hiral Interiano on 08-11-2022 INR Coag (PPP) [Relative time] 1.0 {INR} [facility] Comment on above: INR Therapeutic Rang e [...] on 08-11-2022 Poikilocytosis LM Ql (Bld) Slight [facility] RBC morphologyOrdered By: Donal Interiano on 08-11-2022 RBC morphology finding Nom (Bld) N/A [facility] Segmented neutrophils/100 WB C Manual cnt (Bld)Ordered By: Hiral Interiano on 08-11-2022 Segmented neutrophils/100 WBC (Bld) 94 % 50-70 [facility] Troponin I.cardiac [Mass/vol ume] in Serum or Plasma by High sensitivity methodOrdered By: Hiral Interiano on 08-11-2022 Troponin I.cardiac High sensitivity method [Mass/Vol] 42 pg/mL 0-20 [facility] URINE MICROSCOPIC ONLYon BACTERIA TRACE Abnormal NONE SEEN The [facility] Comment on above: Performed By: #### T SH, LIPID, T4, FT3, CMP #### [facility] [address] [place] [address] Dr. Alicia Patel Bacteria identified Cx Nom (U) NOT INDICATED Normal [facility] Comment on above: Performed By: #### T SH, LIPID, T4, FT3, CMP #### [facility] [address] [place] [address] Dr. Alicia Patel CAST NONE SEEN Normal NONE SEEN The [facility] Comment on above: Performed By: #### T SH, LIPID, T4, FT3, CMP #### [facility] [address] [place] [address] Dr. Alicia Patel Crystals LM Nom (Urine sed) NONE SEEN Normal NONE SEEN [facility] Comment on above: Performed By: #### T SH, LIPID, T4, FT3, CMP #### [facility] [address] [place] [address] Dr. Alicia Patel Epithelial cells LM Ql (Urine sed) RARE Normal NONE SEEN /RARE [facility] Comment on above: Performed By: #### T SH, LIPID, T4, FT3, CMP #### [facility] [address] [place] [address] Dr. Alicia Patel MUCOUS NONE SEEN Normal NONE SEEN The [facility] Comment on above: Performed By: #### T SH, LIPID, T4, FT3, CMP #### [facility] [address] [place] [address] Dr. Alicia Patel RBC 2-5 Abnormal 0-2 [facility] Comment on above: Performed By: #### T SH, LIPID, T4, FT3, CMP #### [facility] [address] [place] [address] Dr. Alicia Patel WBC 2-5 Abnormal NONE SEEN [facility] Comment on above: Performed By: #### T SH, LIPID, T4, FT3, CMP #### [facility] [address] [place] [address] Dr. Alicia Patel XR CHEST 1 Von [...] YOGESH BYERS Date: 2022-08-11 04:27 Normal [facility] Covid-19 PCR (CVDTB)on SARS-CoV-2 (COVID-19) RNA SAVANNAH+probe Ql (Unsp spec) Not detected Normal NOT DETECTED The [facility] Comment on above: Result Comment: This test is not yet approved or cleared by the [place] FDA. When there are no FDA-approved or cleared tests available, and other criteria are met, FDA can make tests available under an emergency access mechanism called an Emergency Use Authorization (EUA). The EUA for this test is supported by the [place] of Health and Human Service's (HHS's) declaration [...] T SH, LIPID, T4, FT3, CMP #### [facility] [address] [place] [id number] [address] Alicia Patel INFLUENZA A AND B AGon 08-02 INFLUANEGH SEE BELOW Normal [facility] Comment on above: Result Comment: Nega tive for Flu A protein angiten. Infection due to Flu A cannot be ruled out. Flu A angiten in the sample may be below the detection limit of the test. Performed By: #### T SH, LIPID, T4, FT3, CMP #### [facility] [address] [place] [address] Dr. Alicia Patel INFLUBNEGH SEE BELOW Normal [facility] Comment on above: Result Comment: Nega tive for Flu B protein antigen. Infection due to Flu B cannot be ruled out. Flu B antigen in the sample may be below the detection limit of the test. Performed By: #### T SH, LIPID, T4, FT3, CMP #### [facility] [address] [place] [address] Dr. Alicia Patel INFLUENZA A AG Negative Normal NEGATIVE SEE COMMENT [facility] Comment on above: Performed By: #### T SH, LIPID, T4, FT3, CMP #### [facility] [address] [place] [address] Dr. Alicia Patel INFLUENZA B AG Negative Normal NEGATIVE SEE COMMENT The [facility] Comment on above: Performed By: #### T SH, LIPID, T4, FT3, CMP #### [facility] [address] [place] [address] Dr. Alicia Patel PTH INTACTon 05-25-2022 PTH, Intact 47 pg/mL Normal 15-65 [facility] Comment on above: Performed By: #### T SH, LIPID, T4, FT3, CMP #### [facility] [address] [place] [address] Dr. Alicia Patel ALBUMINon 05-24-2022 Albumin [Mass/Vol] 3.9 g/dL Normal 3.4-5.0 [facility] Comment on above: Performed By: #### T SH, LIPID, T4, FT3, CMP #### [facility] [address] [place] [address] Dr. Alicia Patel HEMOGRAM AND PLATELon 2021 Hematocrit (Bld) [Volume fraction] 42.1 % Normal 42.0-54.0 [facility] Comment on above: Performed By: #### T SH, LIPID, T4, FT3, CMP #### [facility] [address] [place] [address] Dr. Alicia Patel Hemoglobin (Bld) [Mass/Vol] 14.7 g/dL Normal 14.0-18.0 [facility] Comment on above: Performed By: #### T SH, LIPID, T4, FT3, CMP #### [facility] [address] [place] [address] Dr. Alicia Patel MCH (RBC) [Entitic mass] 33.2 pg Normal 25.9-34.0 [facility] Comment on above: Performed By: #### T SH, LIPID, T4, FT3, CMP #### [facility] [address] [place] [address] Dr. Alicia Patel MCHC (RBC) [Mass/Vol] 34.9 g/dL Normal 29.9-35.2 [facility] Comment on above: Performed By: #### T SH, LIPID, T4, FT3, CMP #### [facility] [address] [place] [address] Dr. Alicia Patel MCV (RBC) [Entitic vol] 95.0 fL Critically high 80.0-94.0 [facility] Comment on above: Performed By: #### T SH, LIPID, T4, FT3, CMP #### [facility] [address] [place] [address] Dr. Alicia Patel PLT 190 103/ul Normal 150-450 [facility] Comment on above: Performed By: #### T SH, LIPID, T4, FT3, CMP #### [facility] [address] [place] [address] Dr. Alicia Patel RBC 4.43 106/ul Critically low 4.70-6.10 [facility] Comment on above: Performed By: #### T SH, LIPID, T4, FT3, CMP #### [facility] [address] [place] [address] Dr. Alicia Patel WBC 7.0 103/ul Normal 4.0-11.0 [facility] Comment on above: Performed By: #### T SH, LIPID, T4, FT3, CMP #### [facility] [address] [place] [address] Dr. Alicia Patel MAGNESIUMon 05-24-2022 Magnesium [Mass/Vol] 1.7 mg/dL Critically low 1.8-2.4 [facility] Comment on above: Performed By: #### T SH, LIPID, T4, FT3, CMP #### [facility] [address] [place] [address] Dr. Alicia Patel PHOSPHORUSon 05-24-2022 Phosphate [Mass/Vol] 3.7 mg/dL Normal 2.6-4.7 [facility] Comment on above: Performed By: #### T SH, LIPID, T4, FT3, CMP #### [facility] [address] [place] [address] Dr. Alicia Patel PROF CHEM 8 (BAS METB)on Anion gap [Moles/Vol] 11.2 mmol/L Normal [facility] Comment on above: Performed By: #### U RTPCR #### [facility] [address] [place] [address] Dr. Alicia Patel Calcium [Mass/Vol] 9.1 mg/dL Normal 8.5-10.1 [facility] Comment on above: Performed By: #### U RTPCR #### [facility] [address] [place] [address] Dr. Alicia Patel Chloride [Moles/Vol] 104 mmol/L Normal 98-107 [facility] Comment on above: Performed By: #### U RTPCR #### [facility] [address] [place] [address] Dr. Alicia Patel CO2 [Moles/Vol] 29.2 mmol/L Normal 21.0-32.0 [facility] Comment on above: Performed By: #### U RTPCR #### [facility] [address] [place] [address] Dr. Alicia Patel Creatinine [Mass/Vol] 1.40 mg/dL Critically high 0.70-1.30 [facility] Comment on above: Performed By: #### U RTPCR #### [facility] [address] [place] [address] [address] Alicia Patel EGFR-AF AUSTRIAN 59 mL/min/1.73m2 Critically low >=60 [facility] Comment on above: Performed By: #### U RTPCR #### [facility] [address] [place] [address] [address] Alicia Patel EGFR-NON AF AUSTRIAN 49 mL/min/1.73m2 Critically low >=60 [facility] Comment on above: Performed By: #### U RTPCR #### [facility] [address] [place] [address] [address] Alicia Patel Glucose [Mass/Vol] 148 mg/dL Critically high 74-106 [facility] Comment on above: Performed By: #### U RTPCR #### [facility] [address] [place] [address] [address] Alicia Patel Potassium [Moles/Vol] 4.4 mmol/L Normal 3.5-5.1 [facility] Comment on above: Performed By: #### U RTPCR #### [facility] [address] [place] [address] [address] Alicia Patel Sodium [Moles/Vol] 140 mmol/L Normal 136-145 [facility] Comment on above: Performed By: #### U RTPCR #### [facility] [address] [place] [address] [address] Alicia Patel Urea nitrogen [Mass/Vol] 16.0 mg/dL Normal 7.0-18.0 [facility] Comment on above: Performed By: #### U RTPCR #### [facility] [address] [place] [address] [address] Alicia Patel Urea nitrogen/Creatinine [Mass ratio] 11.4 mg/mg Normal [facility] Comment on above: Performed By: #### U RTPCR #### [facility] [address] [place] [address] [address] Alicia Patel UA RANDOM W/MICROSCOPICon BACTERIA NONE SEEN Normal NONE SEEN [facility] Comment on above: Performed By: #### T SH, LIPID, T4, FT3, CMP #### [facility] [address] [place] [address] Dr. Alicia Patel Bilirubin Ql (U) Negative Normal NEGATIVE [facility] Comment on above: Performed By: #### T SH, LIPID, T4, FT3, CMP #### [facility] [address] [place] [address] Dr. Alicia Patel CAST NONE SEEN Normal NONE SEEN The [facility] Comment on above: Performed By: #### T SH, LIPID, T4, FT3, CMP #### [facility] [address] [place] [address] Dr. Alicia Patel Clarity (U) CLEAR Normal CLEAR [facility] Comment on above: Performed By: #### T SH, LIPID, T4, FT3, CMP #### [facility] [address] [place] [address] Dr. Alicia Patel Color (U) LT. YELLOW Normal YELLOW The [facility] Comment on above: Performed By: #### T SH, LIPID, T4, FT3, CMP #### [facility] [address] [place] [address] Dr. Alicia Patel Crystals LM Nom (Urine sed) NONE SEEN Normal NONE SEEN [facility] Comment on above: Performed By: #### T SH, LIPID, T4, FT3, CMP #### [facility] [address] [place] [address] Dr. Alicia Patel Epithelial cells LM Ql (Urine sed) FEW Abnormal NONE SEEN /RARE The [facility] Comment on above: Performed By: #### T SH, LIPID, T4, FT3, CMP #### [facility] [address] [place] [address] Dr. Alicia Patel Glucose Ql (U) Negative Normal NEGATIVE The [facility] Comment on above: Performed By: #### T SH, LIPID, T4, FT3, CMP #### [facility] [address] [place] [address] Dr. Alicia Patel Hemoglobin Ql (U) Negative Normal NEGATIVE [facility] Comment on above: Performed By: #### T SH, LIPID, T4, FT3, CMP #### [facility] [address] [place] [address] [address] Alicia Patel Ketones Ql (U) Negative Normal NEGATIVE [facility] Comment on above: Performed By: #### T SH, LIPID, T4, FT3, CMP #### [facility] [address] [place] [address] [address] Alicia Patel LEUKOCYTES Negative Normal NEGATIVE [facility] Comment on above: Performed By: #### T SH, LIPID, T4, FT3, CMP #### [facility] [address] [place] [address] Dr. Alicia Patel MUCOUS NONE SEEN Normal NONE SEEN [facility] Comment on above: Performed By: #### T SH, LIPID, T4, FT3, CMP #### [facility] [address] [place] [address] Dr. Alicia Patel Nitrite Ql (U) Negative Normal NEGATIVE [facility] Comment on above: Performed By: #### T SH, LIPID, T4, FT3, CMP #### [facility] [address] [place] [address] Dr. Alicia Patel pH (U) 5.5 [pH] Normal 5-9 [facility] Comment on above: Performed By: #### T SH, LIPID, T4, FT3, CMP #### [facility] [address] [place] [address] Dr. Alicia Patel RBC NONE SEEN Abnormal 0-2 [facility] Comment on above: Performed By: #### T SH, LIPID, T4, FT3, CMP #### [facility] [address] [place] [address] Dr. Alicia Patel SPEC GRAVITY 1.020 Normal 1.005-<=1. 025 [facility] Comment on above: Performed By: #### T SH, LIPID, T4, FT3, CMP #### [facility] [address] [place] [address] Dr. Alicia Patel UA PROTEIN Negative Normal NEGATIVE/ TRACE [facility] Comment on above: Performed By: #### T SH, LIPID, T4, FT3, CMP #### [facility] [address] [place], [place] [id number] Dr. Alicia Patel Urobilinogen Qn (U) 0.2 {Wil'U}/dL Normal 0.2 - 1. 0 [facility] Comment on above: Performed By: #### T SH, LIPID, T4, FT3, CMP #### [facility] [address] [place] [address] Dr. Alicia Patel WBC NONE SEEN Normal NONE SEEN [facility] Comment on above: Performed By: #### T SH, LIPID, T4, FT3, CMP #### [facility] [address] [place] [address] Dr. Alicia Patel URIC ACID SERUMon 05-24-2022 Urate [Mass/Vol] 5.6 mg/dL Normal 3.5-7.2 [facility] Comment on above: Performed By: #### T SH, LIPID, T4, FT3, CMP #### [facility] [address] [place] [address] Dr. Alicia Patel URINE T PROTEIN CREAT RATIOo n 05-24-2022 Protein (U) [Mass/Vol] 26.0 mg/dL Critically high <=12.0 [facility] Comment on above: Performed By: #### T SH, LIPID, T4, FT3, CMP #### [facility] [address] [place] [address] Dr. Alicia Patel UR PROT CREAT RAT 0.34 Normal [facility] Comment on above: Performed By: #### T SH, LIPID, T4, FT3, CMP #### [facility] [address] [place] [address] Dr. Alicia Patel URINE CREAT 77.39 mg/dL Normal 20.00-300. 00 [facility] Comment on above: Performed By: #### T SH, LIPID, T4, FT3, CMP #### [facility] [address] [place] [address] Dr. Alicia Patel Vital Signs Date Time Vital Sign Value Performing Clinician Facility 12-03-2024 14:15-0400 Body height 177.8 cm [facility] 12-03-2024 14:15-0400 Body mass index (BMI) [Ratio] 40.3 kg/m2 [facility] 12-03-2024 14:15-0400 Body weight 127.45 kg [facility] 12-03-2024 14:15-0400 Diastolic blood pressure 68 mm[Hg] [facility] 12-03-2024 14:15-0400 Heart rate 81 /min [facility] 12-03-2024 14:15-0400 Respiratory rate 18 /min [facility] 12-03-2024 14:15-0400 SaO2% (BldA) [Mass fraction] 95 % [facility] 12-03-2024 14:15-0400 Systolic blood pressure 126 mm[Hg] [facility] 06-12-2024 11:27-0500 Blood Pressure Location Ni OLIVARES [facility] 06-12-2024 11:27-0500 Diastolic blood pressure 70 mm[Hg] Ni Recorded Future [facility] 06-12-2024 11:27-0500 Heart rate 62 /min Ni Recorded Future [facility] 06-12-2024 11:27-0500 Systolic blood pressure 145 mm[Hg] Ni OLIVARES [facility] 12-20-2023 11:49-0400 Body height 175.26 cm MD Jose Alfaro Work Phone: [facility] 12-20-2023 11:49-0400 Body mass index (BMI) [Ratio] 39.4 kg/m2 MD Jose Alfaro Work Phone: [facility] 12-20-2023 11:49-0400 Body temperature 96.5 [degF] MD Jose Alfaro Work Phone: [facility] 12-20-2023 11:49-0400 Body weight 121.33 kg MD Jose Alfaro Work Phone: [facility] 12-20-2023 11:49-0400 Diastolic blood pressure 74 mm[Hg] MD Jose Alfaro Work Phone: [facility] 12-20-2023 11:49-0400 Heart rate 83 /min MD Jose Alfaro Work Phone: [facility] 12-20-2023 11:49-0400 Respiratory rate 20 /min MD Jose Alfaro Work Phone: [facility] 12-20-2023 11:49-0400 SaO2% (BldA) [Mass fraction] 94 % MD Jose Alfaro Work Phone: [facility] 12-20-2023 11:49-0400 Systolic blood pressure 135 mm[Hg] MD Jose Alfaro Work Phone: [facility] 06-14-2023 11:00-0500 Body height 175.26 cm Alicia Brit Other [employer] Other 06-14-2023 11:00-0500 Body mass index (BMI) [Ratio] 38.51 kg/m2 Alicia Brit Other [employer] Other 06-14-2023 11:00-0500 Body temperature 97.2 [degF] Alicia Brit Other [employer] Other 06-14-2023 11:00-0500 Body weight 118.3 kg Alicia Brit Other [employer] Other 06-14-2023 11:00-0500 Diastolic blood pressure 72 mm[Hg] Alicia Brit Other [employer] Other 06-14-2023 11:00-0500 Respiratory rate 18 /min Alicia Brit Other [employer] Other 06-14-2023 11:00-0500 SaO2% (BldA) [Mass fraction] 95 % Alicia Brit Other [employer] Other 06-14-2023 11:00-0500 Systolic blood pressure 122 mm[Hg] Alicia Brit Other [employer] Other 11-29-2022 10:20-0400 Body height 175.26 cm Alicia Brit Other [employer] Other 11-29-2022 10:20-0400 Body mass index (BMI) [Ratio] 36.77 kg/m2 Alicia Brit Other [employer] Other 11-29-2022 10:20-0400 Body temperature 96.3 [degF] Alicia Brit Other [employer] Other 11-29-2022 10:20-0400 Body weight 112.95 kg Alicia Brit Other [employer] Other 11-29-2022 10:20-0400 Diastolic blood pressure 72 mm[Hg] Alicia Brit Other [employer] Other 11-29-2022 10:20-0400 Respiratory rate 18 /min Alicia Brit Other [employer] Other 11-29-2022 10:20-0400 SaO2% (BldA) [Mass fraction] 96 % Alicia Brit Other [employer] Other 11-29-2022 10:20-0400 Systolic blood pressure 137 mm[Hg] Alicia León Other [facility] [employer] Other 10-07-2022 17:25-0400 Heart rate 66 /min Ni COOK [facility] 10-07-2022 17:25-0400 SaO2% (BldA) [Mass fraction] 92 % [facility]OOK [facility] 10-07-2022 17:25-0400 Respiratory rate 16 /min Ni COOK [facility] 10-07-2022 17:24-0400 Body temperature 97.7 [degF] Ni [facility]OOK [facility] 10-07-2022 17:24-0400 Diastolic blood pressure 74 mm[Hg] Ni [facility]OOK [facility] 10-07-2022 17:24-0400 Mean blood pressure [...] 10-07-2022 16:11-0400 Heart rate 58 /min Ni OLIVARES [facility] 10-07-2022 16:11-0400 Mean blood pressure 98 mm[Hg] Ni OLIVARES [facility] 10-07-2022 16:11-0400 Respiratory rate 17 /min Ni OLIVARES [facility] 10-07-2022 16:11-0400 SaO2% (BldA) [Mass fraction] 97 % Ni OLIVARES [facility] 10-07-2022 16:11-0400 Systolic blood pressure 144 mm[Hg] Ni OLIVARES [facility] 10-07-2022 16:00-0400 Mean blood pressure 92 mm[Hg] Ni OLIVARES [facility] 10-07-2022 16:00-0400 Respiratory rate 13 /min Ni OLIVARES [facility] 10-07-2022 15:55-0400 Mean blood pressure 86 mm[Hg] Ni [facility]OOK [facility] 10-07-2022 15:55-0400 Respiratory rate 17 /min Ni [facility]OOK [facility] 10-07-2022 15:46-0400 Body temperature 98.06 [degF] Ni OLIVARES [facility] 10-07-2022 15:40-0400 Respiratory rate 15 /min Ni OLIVARES [facility] 10-07-2022 10:14-0400 Mean blood pressure 97 mm[Hg] Ni OLIVARES [facility] 10-07-2022 10:14-0400 Blood Pressure Location Ni OLIVARES [facility] 10-07-2022 10:13-0400 Heart rate 64 /min Ni OLIVARES [facility] 10-07-2022 10:12-0400 Body temperature 98.06 [degF] Ni OLIVARES [facility] 10-07-2022 10:12-0400 Blood Pressure Location Ni OLIVARES [facility] 09-15-2022 14:40-0400 Body height 175.26 cm Alicia Brit Other [employer] Other 09-15-2022 14:40-0400 Body mass index (BMI) [Ratio] 37.48 kg/m2 Alicia Brit Other [employer] Other 09-15-2022 14:40-0400 Body weight 115.12 kg Alicia Brit Other [employer] Other 09-15-2022 14:40-0400 Diastolic blood pressure 73 mm[Hg] Alicia Brit Other [employer] Other 09-15-2022 14:40-0400 Respiratory rate 18 /min Alicia Brit Other [employer] Other 09-15-2022 14:40-0400 SaO2% (BldA) [Mass fraction] 97 % Alicia Brit Other [facility] [employer] Other 09-15-2022 14:40-0400 Systolic blood pressure 138 mm[Hg] Alicia Brit Other [facility] [employer] Other 09-06-2022 10:01-0400 Blood Pressure Location Ni OLIVARES [facility] 09-06-2022 10:01-0400 Diastolic blood pressure 70 mm[Hg] Ni OLIVARES [facility] 09-06-2022 10:01-0400 Heart rate 68 /min Ni OLIVARES [facility] 09-06-2022 10:01-0400 Systolic blood pressure 132 mm[Hg] Ni OLIVARES [facility] 08-15-2022 12:16-0500 Body temperature 97.8 [degF] MD Jose Alfaro Work Phone: [facility] 08-15-2022 12:16-0500 Diastolic blood pressure 92 mm[Hg] MD Jose Alfaro Work Phone: [facility] 08-15-2022 12:16-0500 Heart rate 68 /min MD Jose Alfaro Work Phone: [facility] 08-15-2022 12:16-0500 Respiratory rate 18 /min MD Jose Alfaro Work Phone: [facility] 08-15-2022 12:16-0500 SaO2% (BldA) [Mass fraction] 95 % MD Jose Alfaro Work Phone: [facility] 08-15-2022 12:16-0500 Systolic blood pressure 146 mm[Hg] MD Jose Alfaro Work Phone: [facility] 08-15-2022 05:08-0500 Body weight 118.2 kg MD Jose Alfaro Work Phone: [facility] 08-13-2022 13:10-0500 Inhaled oxygen flow rate 8 L/min MD Jose Alfaro Work Phone: [facility] 08-13-2022 11:54-0500 Body height 177.8 cm MD Jose Alfaro Work Phone: [facility] 08-13-2022 11:54-0500 Body mass index (BMI) [Ratio] 37.3 kg/m2 MD Jose Alfaro Work Phone: [facility] 06-01-2022 11:40-0500 Body height 175.26 cm Alicia Brit Other [employer] Other 06-01-2022 11:40-0500 Body mass index (BMI) [Ratio] 37.77 kg/m2 Alicia Brit Other [employer] Other 06-01-2022 11:40-0500 Body temperature 97.5 [degF] Alicia Brit Other [employer] Other 06-01-2022 11:40-0500 Body weight 116.03 kg Alicia Brit Other [employer] Other 06-01-2022 11:40-0500 Diastolic blood pressure 71 mm[Hg] Alicia Brit Other [employer] Other 06-01-2022 11:40-0500 Respiratory rate 18 /min Alicia Brit Other [employer] Other 06-01-2022 11:40-0500 SaO2% (BldA) [Mass fraction] 93 % Alicia Brit Other [facility] Other 06-01-2022 11:40-0500 Systolic blood pressure 134 mm[Hg] Alicia Brit Other [employer] Other 11-24-2021 11:20-0400 Body height 175.26 cm Alicia Brit Other [employer] Other 11-24-2021 11:20-0400 Body mass index (BMI) [Ratio] 36.26 kg/m2 Alicia Brit Other [employer] Other 11-24-2021 11:20-0400 Body temperature 96.4 [degF] Alicia Brit Other [facility] Other 11-24-2021 11:20-0400 Body weight 111.4 kg Alicia Brit Other [employer] Other 11-24-2021 11:20-0400 Diastolic blood pressure 72 mm[Hg] Alicia Brit Other [facility] Other 11-24-2021 11:20-0400 Respiratory rate 18 /min Alicia Brit Other [employer] Other 11-24-2021 11:20-0400 SaO2% (BldA) [Mass fraction] 95 % Alicia Brit Other [facility] Other 11-24-2021 11:20-0400 Systolic blood pressure 139 mm[Hg] Alicia Brit Other [employer] Other 10-26-2021 09:17-0400 Blood Pressure Location Milton BRAUN [facility] 10-26-2021 09:17-0400 Diastolic blood pressure 69 mm[Hg] Milton BRAUN [facility] 10-26-2021 09:17-0400 Heart rate 64 /min Milton BRAUN [facility] 10-26-2021 09:17-0400 Respiratory rate 16 /min Milton BRAUN [facility] 10-26-2021 09:17-0400 Systolic blood pressure 139 mm[Hg] Milton BRAUN [facility] 05-26-2021 11:00-0500 Body height 175.26 cm Alicia Brit Other [employer] Other 05-26-2021 11:00-0500 Body mass index (BMI) [Ratio] 34.4 kg/m2 Alicia Brit Other [facility] Other 05-26-2021 11:00-0500 Body temperature 96.9 [degF] Alicia Brit Other [facility] Other 05-26-2021 11:00-0500 Body weight 105.69 kg Alicia Brit Other [facility] Other 05-26-2021 11:00-0500 Diastolic blood pressure 80 mm[Hg] Alicia Brit Other [employer] Other 05-26-2021 11:00-0500 Respiratory rate 18 /min Alicia Brit Other [facility] Other 05-26-2021 11:00-0500 SaO2% (BldA) [Mass fraction] 94 % Alicia Brit Other [employer] Other 05-26-2021 11:00-0500 Systolic blood pressure 136 mm[Hg] Alicia Brit Other [employer] Other Encounters Encounter Date Encounter Type Care Provider Facility Start: 06-11-2025 ambulatory Ni OLIVARES Facility : [facility] Start: 12-10-2024 End: 12-10-2024 ambulatory Ni OLIVARES [facility] Start: 12-10-2024 End: 12-10-2024 Lab Drop off Ni OLIVARES [facility] Start: 12-10-2024 End: 12-10-2024 ambulatory Ni OLIVARES Facility: [facility] Start: 12-10-2024 End: 12-10-2024 Patient encounter procedure Ni OLIVARES [facility] Start: 12-03-2024 End: 12-03-2024 ambulatory [facility] Work Phone: Start: 12-03-2024 End: 12-03-2024 Patient encounter procedure [facility] Work Phone: Start: 11-27-2024 Non-patient / Non-visit [facility] Work Phone: Start: 06-12-2024 End: 06-12-2024 ambulatory Ni OLIVARES Facility: [facility] Start: 06-12-2024 End: 06-12-2024 Patient encounter procedure Ni OLIVARES [facility] Start: 05-21-2024 End: 05-21-2024 ambulatory [facility] Start: 12-20-2023 End: 12-20-2023 ambulatory MD Jose Alfaro Work Phone: [facility] Work Phone: Start: 12-20-2023 End: 12-20-2023 Patient encounter procedure MD Jose Alfaro [facility] Phone[facility] Work Phone: Start: 12-14-2023 Non-patient / Non-visit MD Annalisa Alfaro Work Phone: [facility] Work Phone: Start: 11-01-2023 End: 11-01-2023 ambulatory [facility] Start: 10-26-2023 End: 10-26-2023 ambulatory JENNIFER DRISCOLL Not Available Start: 10-18-2023 End: 10-18-2023 ambulatory MD Jose Alfaro Work Phone: [facility] Work Phone: Start: 10-18-2023 End: 10-18-2023 Departed Referred MD Jose Alfaro Work Phone: [facility] Start: 09-12-2023 End: 09-12-2023 ambulatory JENNIFER DRISCOLL Not Available Start: 08-23-2023 End: 08-23-2023 ambulatory [facility] Start: 07-02-2023 End: 07-02-2023 Patient encounter procedure MD Jose Alfaro Work Phone: [facility] [place] Work Phone: Start: 07-02-2023 End: 07-02-2023 ambulatory MD Jose Alfaro Work Phone: [facility] Work Phone: Start: 06-28-2023 End: 06-28-2023 Patient encounter procedure MD Jose Alfaro Work Phone: [facility] [place] Work Phone: Start: 06-28-2023 End: 06-28-2023 ambulatory MD Jose Alfaro Work Phone: [facility] Work Phone: Start: 06-16-2023 End: 06-16-2023 Patient encounter procedure MD Jose Alfaro Work Phone: [facility] [place] Work Phone: Start: 06-16-2023 End: 06-16-2023 ambulatory MD Jose Alfaro Work Phone: [facility] Work Phone: Start: 06-14-2023 End: 06-14-2023 ambulatory Alicia Brit Other [employer] Other Start: 06-14-2023 Office outpatient vi sit 25 minutes Alicia Brit [facility] Start: 06-14-2023 End: 06-14-2023 Patient encounter procedure Ni OLIVARES [facility] Start: 12-20-2022 End: 12-20-2022 Patient encounter procedure Ni OLIVARES [facility] Start: 11-29-2022 End: 11-29-2022 ambulatory Laicia Brit Other [employer] Other Start: 11-29-2022 Office outpatient vi sit 25 minutes Alicia Brit [facility] Start: 11-10-2022 End: 11-24-[address] JOSE ALFARO . Facility:[facility] Start: 11-08-2022 End: 11-08-[address] JOSE ALFARO . Facility:[facility] Start: 11-06-2022 End: 11-07-[address] JOSE ALFARO . Facility:[facility] Start: 10-29-2022 End: 10-29-2022 Patient encounter procedure Milton BRAUN [facility] Start: 10-26-2022 End: 10-27-2022 ambulatory IRIS CORONEL Facility:[facility] Start: 10-22-2022 End: 10-23-[address] MILTON BRAUN . Facility:[facility] Start: 10-15-2022 End: 10-16-[address] JOSE ALFARO . Facility:[facility] Start: 10-14-2022 End: 10-15-2022 ambulatory IRIS CORONEL Facility:[facility] Start: 10-07-2022 End: 10-07-2022 Admission to same day surgery center Ni OLIVARES [facility] Start: 09-15-2022 End: 09-15-2022 ambulatory Alicia Brit Other [employer] Other Start: 09-15-2022 Office outpatient vi sit 25 minutes Alicia Brit [facility] Start: 09-14-2022 ambulatory Facility:[id number] Start: 09-13-2022 End: 09-14-2022 ambulatory ALICIA BRIT Facility:[facility] Start: 09-06-2022 End: 09-06-2022 Patient encounter procedure Ni OLIVARES [facility] Start: 09-01-2022 End: 09-02-[address] NI OLIVARES Facility:[facility] Start: 08-24-2022 End: 08-25-[address] JOSE ALFARO . Facility:[facility] Start: 08-22-2022 End: 08-22-[address] JOSE ALFARO . Facility:[facility] Start: 08-21-2022 End: 08-22-[address] JOSE ALFARO . Facility:[facility] Start: 08-18-2022 End: 08-19-2022 ambulatory ALICIA BRIT Facility:[facility] Start: 08-11-2022 ambulatory Facility:[facility] Start: 08-11-2022 Patient encounter status MD Iglesias Work Phone: [facility] Comment on above: Problem List clean-u p per request of Phys. EHR Cmte Start: 08-11-2022 End: 08-15-2022 Encounter for preprocedural cardiovascular examination MD Jose Alfaro Work Phone: [facility] Start: 08-11-2022 End: 08-15-2022 Evaluation and management of inpatient MD Jose Alfaro Work Phone: [facility] Work Phone: Start: 08-11-2022 End: 08-11-2022 ambulatory THADDEUS DAUGHERTY Facility:[facility] Start: 08-02-2022 End: 08-02-[address] JOSE ALFARO . Facility:[facility] Start: 07-08-2022 End: 07-23-[address] JOSE ALFARO . Facility:[facility] Start: 06-01-2022 End: 06-01-2022 ambulatory Alicia Brit Other [facility] Other Start: 06-01-2022 Office outpatient vi sit 25 minutes Alicia Brit [facility] Start: 05-24-2022 End: 05-25-2022 ambulatory ALICIA BRIT Facility:[facility] Start: 02-03-2022 End: 02-04-[address] JOSE ALFARO . Facility:[facility] Start: 11-24-2021 End: 11-24-2021 ambulatory Alicia Brit Other [employer] Other Start: 11-24-2021 Office outpatient vi sit 25 minutes Alicia Brit [facility] Start: 10-26-2021 End: 10-26-2021 Patient encounter procedure Milton BRAUN [facility] Start: 05-26-2021 End: 05-26-2021 ambulatory Alicia Brit Other [place] [employer] Other Start: 05-26-2021 Office outpatient vi sit [...] T SH, LIPID, T4, FT3, CMP #### [facility] [address] [place] [address] Dr. 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 Alicia Patel Start: 08-13-2022 Cystoscopy MD Jose Alfaro Work Phone: Start: 08-11-2022 Plain chest X-ray MD Iglesias Work Phone: Start: 08-01-2019 Transurethral prostatectomy Milton BRAUN Start: 07-04-2019 Biopsy of prostate Rohan BRAUN Start: 06-27-2019 cystoscopy, bilatera l, ureteroscopy, laser lithotripsy Milton BRAUN ear surgery Milton BRAUN ear surgery Ni OLIVARES Plan of Treatment Date Care Activity Detail Author Start: 08-15-2022 [facility] Start: 08-14-2022 Microbial culture of sputum [facility] Start: 08-14-2022 Aerobic Culture Aerobic Culture [facility] Start: 08-14-2022 Investigation of tra nsfusion reaction Gram Stain [facility] Start: 08-11-2022 Hospital admission [facility] Start: 08-11-2022 Referral to gear and spline grinder [facility] Start: 08-11-2022 Referral to director of residential services [facility] Start: 08-11-2022 Referral to urologist [facility] Chest WO contrast [facility] Patient referral [facility] Work Phone: Renal function 1999 panel - Serum or Plasma [facility] Renal function 1999 panel - Serum or Plasma [facility] Renal function 1999 panel - Serum or Plasma [facility] Immunizations Immunization Date Immunization Notes Care Provider Fa valente 03-06-2024 influenza virus vaccine, unspecified formulation Ni OLIVARES [facility] 05-02-2023 pneumococcal 20-marco nt conjugate vaccine Ni OLIVARES [facility] 05-02-2023 tetanus toxoid, redu martha diphtheria toxoid, and acellular pertussis vaccine, adsorbed Ni OLIVARES [facility] 03-29-2022 SARS-CoV-2 (COVID-19 ) [id number] Ni OLIVARES [facility] 05-18-2021 SARS-CoV-2 (COVID-19 ) Ad26 vaccine, recombinant Ni OLIVARES [facility] 03-30-2021 influenza virus vaccine, unspecified formulation Ni OLIVARES [facility] 09-01-2020 SARS-CoV-2 (COVID-19 ) Ad26 vaccine, recombinant Ni OLIVARES [facility] 06-27-2020 SARS-CoV-2 (COVID-19 ) Ad26 vaccine, recombinant Milton BRAUN [facility] 04-18-2020 influenza virus vaccine, unspecified formulation Ni OLIVARES [facility] 02-05-2020 zoster vaccine recombinant Ni Recorded Future [facility] 12-06-2019 zoster vaccine recombinant Ni Recorded Future [facility] 04-04-2019 influenza virus vaccine, unspecified formulation [facility]RA[facility] 04-05-2017 influenza virus vaccine, unspecified formulation Ni OLIVARES [facility] 04-05-2017 pneumococcal conjuga te vaccine, 13 valent Ni OLIVARES [facility] 04-12-2016 influenza, unspecifi ed formulation Ni OLIVARES [facility] Payers Date Payer Category Payer Self-pay [id number] 2022 Medicare [id number] 1959 Private Health Insurance [id number] [id number] 1959 Private Health Insurance [id number] 1942 Unknown [id number] 2.16.840.1.069263.3.579.2.356 1942 Unknown [id number] 2.16.840.1.154084.3.579.2.593 1942 Unknown [id number] 2.16.840.1.516647.3.579.2.593 1942 Unknown [id number] 2.16.840.1.044190.3.579.2.593 1942 Unknown [id number] 2.16.840.1.629622.3.579.2.593 1942 Unknown [id number] 2.16.840.1.129677.3.579.2.593 1942 Unknown [id number] 2.16.840.1.820910.3.579.2.593 1942 Unknown [id number] 2.16.840.1.721837.3.579.2.593 1942 Unknown [id number] 2.16.840.1.476363.3.579.2.593 1942 Unknown [id number] 2.16.840.1.656770.3.579.2.593 1942 Unknown [id number] 2.16.840.1.879345.3.579.2.593 1942 Unknown [id number] 2.16.840.1.981544.3.579.2.593 1942 Unknown [id number] 2.16.840.1.964976.3.579.2.593 1942 Unknown [id number] 2.16.840.1.551558.3.579.2.593 1942 Unknown [id number] 2.16.840.1.404791.3.579.2.593 1942 Unknown [id number] 2.16.840.1.190752.3.579.2.593 1942 Unknown [id number] 2.16.840.1.126462.3.579.2.593 1942 Unknown [id number] 2.16.840.1.593339.3.579.2.593 1942 Unknown [id number] 2.16.840.1.729943.3.579.2.593 1942 Unknown [id number] 2.16.840.1.366296.3.579.2.593 1942 Unknown [id number] 2.16.840.1.635195.3.579.2.1259 1942 Unknown [id number] 2.16.840.1.057650.3.579.2.1259 1942 Unknown [id number] 2.16.840.1.251876.3.579.2.727 1942 Unknown [id number] 2.16.840.1.459229.3.579.2.727 1942 Unknown [id number] 2.16.840.1.245462.3.579.2.727 1942 Unknown [id number] 2.16.840.1.332009.3.579.2.727 Medicare [id number] 2.16.8 40.1.791578.19 Medicare Medicare [id number] Medicare [id number] 2.1 6.840.1.019500.19 Unknown [place] BC/BS [id number] Unknown [id number] 2.16.840.1.173230.3.579.2.531 Unknown [id number] 2.16.840.1.688142.3.579.2.531 Unknown [id number] 2.16.840.1.638329.3.579.2.531 Unknown [id number] 2.16.840.1.734224.3.579.2.531 Social History Date Type Detail Facility Start: 08-18-2020 End: 12-10-2024 Tobacco smoking status Ex-smoker (finding) [facility] Other Comment on above: quit in 1978 Sex Assigned At Male [employer] [facility] [employer] Other Start: 1940 Sex Assigned At Male [facility] Tobacco smoking status Never [facility] Comment on above: quit in 1978 Start: 04-06-2019 End: 12-03-2024 Sex Male (finding) [facility] Sexual Orientation [facility] Medical Equipment Procedure Code Equipment Code Equipment Origin al Text Equipment Identifier Dates Cystoscopy, with ureteral calculus manipulation and stent placement Polymeric ureteral stent [id number] FDA Start: 06-15-2019 Cystoscopy, with ureteral calculus manipulation and stent placement Polymeric ureteral stent ()[id number] )[id number] FDA Start: 06-15-2019 Cystoscopy, with ureteral calculus manipulation and stent placement Polymeric ureteral stent ()[id number] ()[id number] FDA Start: 08-13-2022 Biopsy, prostate, with US guidance Polymeric ureteral stent ()[id number] FDA Start: 07-04-2019 CYSTOSCOPY URETEROSCOPY CARLOS OLIVEROS, Ni Jose 12/02/22 Unknown Ureter R {[id number] FDA Start: 12-02-2022 Goals Date Patient Goal Desired Activity /State Functional Status Date Assessment Result Facility 06-12-2024 Functional Status N/A [facility] 12-20-2022 Functional Status N/A [facility] 09-06-2022 Functional Status N/A [facility] 08-15-2022 Functional status Patient at Baseline [facility] Work Phone: Mental Status Date Assessment Result Facility 08-15-2022 Cognitive function Cognitive Sta tus Patient at Baseline [facility] Work Phone: Clinical Notes 05-26-2021 to 12-10-2024 Note Date & Type Note Facility 12-10-2024 Hospital Discharge instructions Patient Education 12/10/2024 11:32:33 Prostate Cancer Screening Prostate Cancer Screening Prostate cancer screening is testing that is done to check for the presence of prostate cancer in men. The prostate gland is a walnut-sized gland that is located below the bladder and in front of the rectum in males. The function of the prostate is to add fluid to semen during ejaculation. Prostate cancer is one of the most common types of cancer in men. Who should have prostate cancer screening? Screening recommendations vary based on age and other risk factors, as well as between the professional organizations who make the recommendations. In general, screening is recommended if: You are age 50 to 70 and have an average risk for prostate cancer. You should talk with your health care provider about your need for screening and how often screening should be done. Because most prostate cancers are slow growing and will not cause , screening in this age group is generally reserved for men who have a 10- to 15-year life expectancy. You are younger than age 50, and you have these risk factors: ?Having a father, brother, or uncle who has been diagnosed with prostate cancer. The risk is higher if your family member's cancer occurred at an early age or if you have multiple family members with prostate cancer at an early age. ?Being a male who is Black or is of [place] or sub-Saharan descent. In general, screening is not recommended if: You are younger than age 40. You are between the ages of 40 and 49 and you have no risk factors. You are 70 years of age or older. At this age, the risks that screening can cause are greater than the benefits that it may provide. If you are at high risk for prostate cancer, your health care provider may recommend that you have screenings more often or that you start screening at a younger age. How is screening for prostate cancer done? The recommended prostate cancer screening test is a blood test called the prostate-specific antigen (PSA) test. PSA is a protein that is made in the prostate. As you age, your prostate naturally produces more PSA. Abnormally high PSA levels may be caused by: Prostate cancer. An enlarged prostate that is not caused by cancer (benign prostatic hyperplasia, or BPH). This condition is very common in older men. A prostate gland infection (prostatitis) or urinary tract infection. Certain medicines such as male hormones (like testosterone) or other medicines that raise testosterone levels. A rectal exam may be done as part of prostate cancer screening to help provide information about the size of your prostate gland. When a rectal exam is performed, it should be done after the PSA level is drawn to avoid any effect on the results. Depending on the PSA results, you may need more tests, such as: A physical exam to check the size of your prostate gland, if not done as part of screening. Blood and imaging tests. A procedure to remove tissue samples from your prostate gland for testing (biopsy). This is the only way to know for certain if you have prostate cancer. What are the benefits of prostate cancer screening? Screening can help to identify cancer at an early stage, before symptoms start and when the cancer can be treated more easily. There is a small chance that screening may lower your risk of dying from prostate cancer. The chance is small because prostate cancer is a slow-growing cancer, and most men with prostate cancer from a different cause. What are the risks of prostate cancer screening? The main risk of prostate cancer screening is diagnosing and treating prostate cancer that would never have caused any symptoms or problems. This is called overdiagnosisand overtreatment. PSA screening cannot tell you if your PSA is high due to cancer or a different cause. A prostate biopsy is the only procedure to diagnose prostate cancer. Even the results of a biopsy may not tell you if your cancer needs to be treated. Slow-growing prostate cancer may not need any treatment other than monitoring, so diagnosing and treating it may cause unnecessary stress or other side effects. Questions to ask your health care provider When should I start prostate cancer screening? What is my risk for prostate cancer? How often do I need screening? What type of screening tests do I need? How do I get my test results? What do my results mean? Do I need treatment? Where to find more information The Chinese Cancer Society: www.cancer.org Chinese Urological Association: www.auanet.org Contact a health care provider if: You have difficulty urinating. You have pain when you urinate or ejaculate. You have blood in your urine or semen. You have pain in your back or in the area of your prostate. Summary Prostate cancer is a common type of cancer in men. The prostate gland is located below the bladder and in front of the rectum. This gland adds fluid to semen during ejaculation. Prostate cancer screening may identify cancer at an early stage, when the cancer can be treated more easily and is less likely to have spread to other areas of the body. The prostate-specific antigen (PSA) test is the recommended screening test for prostate cancer, but it has associated risks. Discuss the risks and benefits of prostate cancer screening with your health care provider. If you are age 70 or older, the risks that screening can cause are greater than the benefits that it may provide. This information is not intended to replace advice given to you by your health care provider. Make sure you discuss any questions you have with your health care provider. Document Revised: 12/07/2021 Document Reviewed: 12/07/2021 [employer] Patient Education 2023 [employer]. Follow Up Care 06/12/2024 11:57:45 With:CARLOS OLIVEROS, Ni Garcia, URL Address: [facility] [employer] [address]- When: Unknown Comments:6 mos w/ PSA [facility] 12-10-2024 Note Patient Education Oncology Prostate Cancer Screening Prostate cancer screening is testing that is done to check for the presence of prostate cancer in men. The prostate gland is a walnut-sized gland that is located below the bladder and in front of the rectum in males. The function of the prostate is to add fluid to semen during ejaculation. Prostate cancer is one of the most common types of cancer in men. Who should have prostate cancer screening? Screening recommendations vary based on age and other risk factors, as well as between the professional organizations who make the recommendations. In general, screening is recommended if: ??? You are age 50 to 70 and have an average risk for prostate cancer. You should talk with your health care provider about your need for screening and how often screening should be done. Because most prostate cancers are slow growing and will not cause , screening in this age group is generally reserved for men who have a 10- to 15-year life expectancy. ??? You are younger than age 50, and you have these risk factors: ? Having a father, brother, or uncle who has been diagnosed with prostate cancer. The risk is higher if your family member's cancer occurred at an early age or if you have multiple family members with prostate cancer at an early age. ? Being a male who is Black or is of Festus or sub-Saharan descent. In general, screening is not recommended if: ??? You are younger than age 40. ??? You are between the ages of 40 and 49 and you have no risk factors. ??? You are 70 years of age or older. At this age, the risks that screening can cause are greater than the benefits that it may provide. If you are at high risk for prostate cancer, your health care provider may recommend that you have screenings more often or that you start screening at a younger age. How is screening for prostate cancer done? The recommended prostate cancer screening test is a blood test called the prostate-specific antigen (PSA) test. PSA is a protein that is made in the prostate. As you age, your prostate naturally produces more PSA. Abnormally high PSA levels may be caused by: ??? Prostate cancer. ??? An enlarged prostate that is not caused by cancer (benign prostatic hyperplasia, or BPH). This condition is very common in older men. ??? A prostate gland infection (prostatitis) or urinary tract infection. ??? Certain medicines such as male hormones (like testosterone) or other medicines that raise testosterone levels. A rectal exam may be done as part of prostate cancer screening to help provide information about the size of your prostate gland. When a rectal exam is performed, it should be done after the PSA level is drawn to avoid any effect on the results. Depending on the PSA results, you may need more tests, such as: ??? A physical exam to check the size of your prostate gland, if not done as part of screening. ??? Blood and imaging tests. ??? A procedure to remove tissue samples from your prostate gland for testing (biopsy). This is the only way to know for certain if you have prostate cancer. What are the benefits of prostate cancer screening? Screening can help to identify cancer at an early stage, before symptoms start and when the cancer can be treated more easily. ??? There is a small chance that screening may lower your risk of dying from prostate cancer. The chance is small because prostate cancer is a slow-growing cancer, and most men with prostate cancer from a different cause. What are the risks of prostate cancer screening? The main risk of prostate cancer screening is diagnosing and treating prostate cancer that would never have caused any symptoms or problems. This is called overdiagnosisand overtreatment. PSA screening cannot tell you if your PSA is high due to cancer or a different cause. A prostate biopsy is the only procedure to diagnose prostate cancer. Even the results of a biopsy may not tell you if your cancer needs to be treated. Slow-growing prostate cancer may not need any treatment other than monitoring, so diagnosing and treating it may cause unnecessary stress or other side effects. Questions to ask your health care provider ??? When should I start prostate cancer screening? What is my risk for prostate cancer? How often do I need screening? What type of screening tests do I need? How do I get my test results? What do my results mean? Do I need treatment? Where to find more information ??? The Chinese Cancer Society: www.cancer.org ??? Chinese Urological Association: www.auanet.org Contact a health care provider if: ??? You have difficulty urinating. ??? You have pain when you urinate or ejaculate. ??? You have blood in your urine or semen. ??? You have pain in your back or in the area of your prostate. Summary ??? Prostate cancer is a common type of cancer in men. The prostate gland (more content not included)... [facility] 06-12-2024 Hospital Discharge instructions Patient Education 06/12/2024 [...] include: ?8 oz (237 mL) of milk, ayswnie-esfoaiyiixcb-urjfg milk, and calcium-fortifiedfruit juice. Calcium-fortified means that [...] ?Spinach (cooked), rhubarb, beets, sweet potatoes, and Jordanian chard. ?Peanuts. ?Potato chips, [place] citizen fries, and baked potatoes with skin on. ?Nuts and nut products. ?Chocolate. If you regularly take a diuretic medicine, make sure to eat at least 1 or 2 servings of fruits or vegetables that are high in potassium each day. These include: ?Avocado. ?Banana. ?Catawba, prune, carrot, or tomato juice. ?Baked potato. [...] magnesium, fish oil, or vitamin B6. Take mpfl-mte-xagrdta and prescription medicines only as told by [...] Casseroles. Pizza. Lasagna. Frozen meals. Potato chips. Kazakh fries. The items listed above may not [...] provider. Document Revised: 09/23/2022 Document Reviewed: 09/23/2022 [employer] Patient Education 2023 Novasentis. Follow Up Care 06/14/2023 09:52:06 With:CARLOS OLIVEROS, Ni Garcia, URL Address: [facility] [employer] [place] [id number]- When: Unknown [facility] Tom 06-12-2024 Note Patient Education Nephrology Dietary Guidelines [...] ? 8 oz (237 mL) of milk, yyttkmt-behwazpjnare-edagr milk, and calcium-fortifiedfruit juice. Calcium-fortified means that [...] Spinach (cooked), rhubarb, beets, sweet potatoes, and Jordanian chard. ? Peanuts. ? Potato chips, [place] citizen fries, and baked potatoes with skin on. ? Nuts and nut products. ? Chocolate. ??? If you regularly take a diuretic medicine, make sure to eat at least 1 or 2 servings of fruits or vegetables that are high in potassium each day. These include: ? Avocado. ? Banana. ? Catawba, prune, carrot, or tomato juice. ? Baked [...] fish oil, or vitamin B6. ??? Take ebro-anq-lqvvwqt and prescription medicines only as told by your health (more content not included)... [facility] 05-21-2024 Note [facility] Subjective Victorino Smyth is a 83 y.o. 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 [facility] 11-01-2023 Note Patient here for 3 [...] All other systems reviewed and are negative. [facility] 11-01-2023 Note Cardiovascular Medic [facility] SUBJECTIVE Chief Complaint Patient presents with Coronary Artery Disease Hypertension Victorino Smyth is a 83 y.o. male here for follow-up. 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 (more content not included)... [facility] 08-23-2023 Note Cardiovascular Medic in[facility] SUBJECTIVE No chief complaint on file. Victorino Smyth is a 83 y.o. male here for follow-up. Patient here for 6 mo follow up CAD, hypertension, and hyperlipidemia. He was discharged from [facility] a few weeks ago for Covid-19. Feels much better and is still regaining his strength. Denies chest pain, palpitations, and lightheadedness/syncope. 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 [facility] 08-23-2023 Note Patient here for 6 m o follow up CAD, hypertension, and hyperlipidemia. He was discharged from [facility] a few weeks ago for Covid-19. Feels much better and is still regaining his strength. Denies chest pain, palpitations, and lightheadedness/syncope. Patient states his BP in the mornings before medications has been running around 100/55. Review of Systems Cardiovascular: Positive for dyspnea on exertion. Musculoskeletal: Positive for arthritis, back pain and joint pain. All other systems reviewed and are negative. [facility] 06-14-2023 Evaluation note Encounter Date Diagnosis Assessment Notes May, Diabetes mellitus with chronic kidney disease (ICD-10 - E11.22) He has ceb-sudithh-z ependent type 2 diabetes and currently takes [...] advised him Continue to follow with Dr. 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 He has adequate iron stores and has normal B12 and folate level. [employer] Other 12-19-2023 Hospital Discharge instructions Patient Education [...] include: ?8 oz (237 mL) of milk, grymfqe-tdgzjgqyihuc-cidkd milk, and calcium- fortifiedfruit juice. Calcium-fortified means [...] ?Spinach (cooked), rhubarb, beets, sweet potatoes, and Jordanian chard. ?Peanuts. ?Potato chips, [place] citizen fries, and baked potatoes with skin on. ?Nuts and nut products. ?Chocolate. If you regularly take a diuretic medicine, make sure to eat at least 1 or 2 servings of fruits or vegetables that are high in potassium each day. These include: ?Avocado. ?Banana. ?Catawba, prune, carrot, or tomato juice. ?Baked potato. [...] magnesium, fish oil, or vitamin B6. Take myoh-chn-ezntjif and prescription medicines only as told by [...] Casseroles. Pizza. Lasagna. Frozen meals. Potato chips. Kazakh fries. The items listed above may not [...] provider. Document Revised: 09/23/2022 Document Reviewed: 09/23/2022 [employer] Patient Education 2022 Novasentis. Follow Up Care 02/04/2023 14:47:08 With:CARLOS OLIVEROS, Ni Garcia, URL Address: [address] [employer] [address] [place] [address]- When: Unknown [facility] [employer] [id number] Hospital Discharge instructions Patient Education 12/20/2022 16:27:08 [...] to the nearest emergency room or call 1 Diet you may resume your normal diet. Activity you may resume your normal activities Call if you have a fever over 100 degrees. Follow Up Care 12/07/2022 13:42:13 With:Ni OLIVARES Address: [address] [employer] [address] [place] [address]- Business (1) When:6 months Comments:Call for followup [...] kidney disease (ICD-10 - E11.22) He has gyj-seaasao-uehb ndent type 2 diabetes and currently takes [...] and has normal B12 and folate level. [employer] Other 04-13-2023 Hospital Discharge instructions Patient Education [...] Follow these instructions at home: Medicines Take yzoa-veg-jsgiqni and prescription medicines only as told by [...] 07/02/2008 Document Revised: 09/24/2019 Document Reviewed: 05/04/2017 [employer] Patient Education 2020 [employer] Follow Up Care 09/06/2022 10:38:13 With:Ni OLIVARES Address: [address] [place], [place] [id number] [facility] (1) When: Unknown Comments:We were able [...] [facility]04-13-2023 Evaluation + Plan noteExtracted from: Title:CSB post op Author:Timothy Pittman MD Date:10/07/22 Plan Transfer/Discharge: Transfer/Discharge Discharge when meets criteria ( To home ). Extracted from: Title:CSB GA Author:Timothy Pittman MD Date:10/07/22 Plan [employer] of Anesthesiologists (ASA) physical status classification: Class III. Anesthetic Preoperative Plan: Anesthesia General. Future Appointments Appointment Date:10/29/2022 08:45:00 AM Scheduled Provider:Milton BRAUN MD Location:[facility] Appointment Type:URO Office Visit [facility]03-22-2023 Evaluation note* Encounter Date Diagnosis Assessment Notes Treatment Notes Treatment Clinical Notes Aug, Diabetes mellitus wi th chronic kidney disease (ICD-10 - E11.22) He has dxz-nnuumis-huca ndent type 2 diabetes and currently takes [...] have advised him to adequately hydrate himself. [employer] Other 03-13-2023 Hospital Discharge instructions Patient Education 09/06/2022 10:27:16 Kidney Stones, Gwsr-zf-Slhw Kidney Stones Kidney stones are rock-like masses [...] Follow these instructions at home: Medicines Take nbel-fus-dwytdcc and prescription medicines only as told by [...] 11/29/2008 Document Revised: 10/30/2019 Document Reviewed: 10/30/2019 [employer] Patient Education 2020 Novasentis. Follow Up Care 08/17/2022 09:18:37 With:CARLOS OLIVEROS, Ni Garcia, URL Address: [facility] [employer] [place] [id number]- When: Unknown [facility] Tom [id number] Discharge summary Author Hiral Interiano [facility] August 15, 2022 1:50pm Note Date/Time August 15, 2022 1:50pm [facility] [address] [place] [address] Discharge Summary Signed Patient: Victorino Smyth MR#: [id number] : 1940 Acct:[id number] Age/Sex: 82 / M Adm Date: 3 Loc: 4N Room: [address] [place] [address]: Hiral Interiano MD Copies to: [...] history of nephrolithiasis. He initially presented to [facility] ER with complaint of hypoglycemia and was found to have severe renal failure along with metabolic acidosis and hyperkalemia. CT scan at [facility] showed atrophic left kidney with obstructing stone in the right ureteropelvic junction. Patient was transferred to [facility] for further intervention. 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 CT scan at [facility] also showed 0.8 cm nodule on [...] Low-Cholesterol Additional Instructions: Follow-up with your Primary Assistant Food Service Director in 4 weeks. Avoid NSAIDs for pain [...] office on Tuesday to schedule follow-up with [employer]. ) Documented By: Hiral Interiano MD 08/15/22 [id number] Signed By: <Electronically signed by Hiral Interiano MD> 08/15/22 135[address] [facility] Work Phone: 1(711) 251-161302-19-2023 Progress note Author Alicia León [facility] August 15, 2022 12:01pm Note Date/Time August 15, 2022 12:01pm [facility] [address] [place] [address] Nephrology Progress Note Signed Patient: Victorino Smyth MR#: [id number] : 1940 Acct:[id number] Age/Sex: 82 / M Adm Date: 3 Loc: Room: [address] [place] [address] Type: ADM IN Attending Dr: Hiral Interiano MD Copies to: ~ Date of Service: 08/15/2022 Subjective Subjective Narrative: This is a 82-year-old male with a medical history of coronary artery disease s/pPCI, nephrolithiasis, CKD, diabetes mellitus, hypertension, dyslipidemia was presented to the emergency room of [facility] for generalized weakness and low urine output. On evaluation emergency room patient was found to have a life- threatening hyperkalemia with serum potassium 7 mmol/L, acute kidney injurywith elevated serum creatinine 17.8 mg/dL, metabolic acidosis serum bicarbonate 13.5 mmol/L. He was given insulin D50 calcium gluconate in the [facility] emergency room. He had a CAT scan abdomen pelvis done which showed obstructive kidney stones in the right UPJ and total atrophy of the left kidney. Case was discussed with the on-call urologist Dr. Olivares and recommended patient needs to be n.p.o. for surgical intervention. He was transferred to [facility] for further care. Patient is history of CKD due to the longstanding DM, HTN and recurrent KELSEA with baseline serum creatinine 1.4 to 1.6 mg/dL. He follows in my office for his CKD care. Patient after arrival at the [facility] hada repeat labs done which showed persistent [...] visible mass Skin: No rashes or bruises CHIEF ORDER DISPATCHER: Awake,Alert, following simple command Musculoskeletal: No joint [...] Tablet) 10 mg PO DAILY [facility] Stop: 08/16/23 08:59 Aspirin (Aspirin 81 Mg Tablet.Dr) 81 mg PO DAILY [facility] Stop: 08/12/23 08:59 Last Admin: 08/15/22 09:45 Dose: 81 mg Atorvastatin Calcium (Atorvastatin 40 Mg Tablet) 40 mg PO HS [facility] Stop: 08/11/23 21:59 Last Admin: 08/14/22 21:08 Dose: 40 mg Dextrose (Dextrose 50% In Water 25 Gm/50 Ml Syringe) 0 gm IV-PUSH PRN PRN PRN Reason: Hypoglycemia Stop: 08/11/23 14:01 Doxycycline Hyclate (Doxycycline Hyclate 100 Mg Tablet) 100 mg PO BID [facility] Stop: 08/18/22 20:59 Last Admin: 08/15/22 09:45 Dose: 100 mg Glucose (Dextrose 40% Gel 15 Gm Tube) 0 gm PO PRN PRN PRN Reason: Hypoglycemia Stop: 08/11/23 14:01 Guaifenesin (Guaifenesin 600 Mg Tab.Er.12h) 1,200 mg PO BID [facility] Stop: 08/12/23 20:59 Last Admin: 08/15/22 09:45 [...] 300 Units/3 Ml Insuln.Pen) 0 units SUBCUT TID..[facility]; Protocol Stop: 08/11/23 16:59 Last Admin: 08/15/22 09:46 Dose: 5 units Insulin Glargine (Insulin Glargine 300 Units/3 Ml Insuln.Pen) 5 units SUBCUT DAILY [facility] Stop: 08/13/23 08:59 Last Admin: 08/15/22 09:47 Dose: 5 units Melatonin (Melatonin 5 Mg Tablet) 5 mg PO QHS PRN PRN Reason: insomnia Stop: 08/14/23 21:59 Last Admin: 08/14/22 21:08 Dose: 5 mg Metoprolol Tartrate (Metoprolol Tartrate 50 Mg Tablet) 50 mg PO BID [facility] Stop: 08/11/23 20:59 Last Admin: 08/15/22 09:45 [...] office. Documented By: Alicia León MD 08/15/22 1158 Signed By: <Electronically signed by Alicia León MD> 08/15/22 1201 [facility] Work Phone: [phone] Progress note Author Cade Alvarez [facility] August 15, 2022 11:31am Note Date/Time August 15, 2022 11:31am [facility] [address] [place] [address] Cardiology Progress Note Signed Patient: Victorino Smyth MR#: [id number] : 1940 Acct:[id number] Age/Sex: 82 / M Adm Date: 3 Loc: 4 Room: [address] [place] [address] Type: ADM IN Attending Dr: Hiral Interiano [...] patient has cardiology follow-up with 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 (2) CAD (coronary artery disease): Code(s): I25.10 - Atherosclerotic heart disease of [place] coronary artery without angina pectoris Status: Acute [...] signed by Cade Alvarez MD> 08/15/22 1131 [facility] Work Phone: [phone] Progress note Author Hiral Interiano [facility] August 14, 2022 2:57pm Note Date/Time August 14, 2022 2:49pm [facility] [address] [place] [address] Hospitalist Progress Note Signed Patient: Victorino Smyth MR#: [id number] : 1940 Acct:[id number] Age/Sex: 82 / M Adm Date: 3 Loc: 4N Room: [address] [place] [address] Type: ADM IN Attending Dr: Hiral Interiano [...] 08/12/23 21:59 Not Given Q8HR [facility] Hydralazine HCl 10 mg 08/11/22 13:41 08/14/22 [...] 08/11/23 16:59 Not Given TID.WM.HS [facility] Protocol Insulin Glargine 5 units 08/13/22 09:00 [...] <Electronically signed by Hiral Interiano MD> 08/14/22 6068 [facility] Work Phone: [phone] 107-415802-18-2023 Progress note Author Alicia León [facility] August 14, 2022 11:55am Note Date/Time August 14, 2022 11:55am [facility] [address] [place] [address] Nephrology Progress Note Signed Patient: Victorino Smyth MR#: [id number] : 1940 Acct:[id number] Age/Sex: 82 / M Adm Date: 3 Loc: 4N Room: [address] [place] [address] Type: ADM IN Attending Dr: Hiral Interiano MD Copies to: ~ Date of Service: 08/14/2022 Subjective Subjective Narrative: This is a 82-year-old male with a medical history of coronary artery disease s/pPCI, nephrolithiasis, CKD, diabetes mellitus, hypertension, dyslipidemia was presented to the emergency room of [facility] for generalized weakness and low urine output. On evaluation emergency room patient was found to have a life- threatening hyperkalemia with serum potassium 7 mmol/L, acute kidney injurywith elevated serum creatinine 17.8 mg/dL, metabolic acidosis serum bicarbonate 13.5 mmol/L. He was given insulin D50 calcium gluconate in the [place] emergency room. He had a CAT scan abdomen pelvis done which showed obstructive kidney stones in the right UPJ and total atrophy of the left kidney. Case was discussed with the on-call urologist Dr. Olivares and recommended patient needs to be n.p.o. for surgical intervention. He was transferred to [facility] for further care. Patient is history of CKD due to the longstanding DM, HTN and recurrent KELSEA with baseline serum creatinine 1.4 to 1.6 mg/dL. He follows in my office for his CKD care. Patient after arrival at the [facility] hada repeat labs done which showed persistent [...] visible mass Skin: No rashes or bruises CHIEF ORDER DISPATCHER: Awake,Alert, following simple command Musculoskeletal: No joint [...] 81 Mg Tablet.) 81 mg PO DAILY [facility] Stop: 08/12/23 08:59 Last Admin: 08/14/22 08:22 [...] Insuln.Pen) 0 units SUBCUT TID.WM.HS [facility]; Protocol Stop: 08/11/23 16:59 Last Admin: 08/14/22 11:50 Dose: Not Given Insulin Glargine (Insulin Glargine 300 Units/3 Ml Insuln.Pen) 5 units SUBCUT DAILY [facility] Stop: 08/13/23 08:59 Last Admin: 08/13/22 08:45 Dose: Not Given Metoprolol Tartrate (Metoprolol Tartrate 50 Mg Tablet) 50 mg PO BID [facility] Stop: 08/11/23 20:59 Last Admin: 08/14/22 08:23 [...] Perez Jr., D.O.08/13/2022 2:25 PM Dictation Location: [place] [address] Any impression(s) listed above is documentation that [...] output Documented By: Alicia León MD 08/14/22 1152 Signed By: <Electronically signed by Alicia León MD> 08/14/22 1157 [facility] Work Phone: [phone] Progress note Author Cade Alvarez [facility] August 14, 2022 11:21am Note Date/Time August 14, 2022 11:21am [facility] [address] [place] [address] Cardiology Progress Note Signed Patient: Victorino Smyth MR#: [id number] : 1940 Acct:[id number] Age/Sex: 82 / M Adm Date: 3 Loc: 4 Room: [address] [place] [address] Type: ADM IN Attending Dr: Hiral Interiano [...] % (Auto) 79.6 Lymph % (Auto) 7.8 [place] % (Auto) 11.4 Eos % (Auto) 1.0 Baso % (Auto) 0.2 Nucleat RBC Rel Count 0.1 Neut # (Auto) 5.9 Lymph # (Auto) 0.6 L [place] # (Auto) 0.8 Eos # (Auto) 0.1 [...] MPV Neut % (Auto) Lymph % (Auto) [place] % (Auto) Eos % (Auto) Baso % (Auto) Nucleat RBC Rel Count Neut # (Auto) Lymph # (Auto) [place] # (Auto) Eos # (Auto) Baso # [...] make sure that he has follow-up in [facility] within 4 weeks of discharge. (2) CAD (coronary artery disease): Assessment/Problem Details: Stable/quiescent. No ischemic complications with yesterday's urological procedure. Code(s): I25.10 - Atherosclerotic heart disease of [place] coronary artery without angina pectoris Status: Acute Plan: Medical recommendations as above. Plan Thank you very much for this kind consultation and for allowing us to participate in the care of this very pleasant patient Time spent with patient Time Spent With Patient (min): 30 Documented By: Cade Alvarez MD 08/14/22 1118 Signed By: <Electronically signed by Cade Alvarez MD> 08/14/22 1121 [facility] Work Phone: [phone] Progress note Author Hiral Interiano [facility] August 13, 2022 3:09pm Note Date/Time August 13, 2022 3:02pm [facility] [address] [place] [address] Hospitalist Progress Note Signed Patient: Victorino Smyth MR#: [id number] : 1940 Acct:[id number] Age/Sex: 82 / M Adm Date: 3 Loc: 4N Room: 6I5965-6 Type: ADM IN Attending Dr: Hiral Interiano [...] 08/11/23 16:59 Not Given TID.WM.HS [facility] Protocol Insulin Glargine 5 units 08/13/22 09:00 [...] signed by Hiral Interiano MD> 08/13/22 1509 [facility] Work Phone: [phone] Progress note Author Alicia León [facility] August 13, 2022 11:29am Note Date/Time August 13, 2022 11:25am [facility] [address] [place] [address] Nephrology Progress Note Signed Patient: Victorino Smyth MR#: [id number] : 1940 Acct:[id number] Age/Sex: 82 / M Adm Date: 3 Loc: Room: [address] [place] [address] Type: ADM IN Attending Dr: Hiral Interiano MD Copies to: ~ Date of Service: 08/13/2022 Subjective Subjective Narrative: This is a 82-year-old male with a medical history of coronary artery disease s/pPCI, nephrolithiasis, CKD, diabetes mellitus, hypertension, dyslipidemia was presented to the emergency room of [facility] for generalized weakness and low urine output. On evaluation emergency room patient was found to have a life- threatening hyperkalemia with serum potassium 7 mmol/L, acute kidney injurywith elevated serum creatinine 17.8 mg/dL, metabolic acidosis serum bicarbonate 13.5 mmol/L. He was given insulin D50 calcium gluconate in the [place] emergency room. He had a CAT scan abdomen pelvis done which showed obstructive kidney stones in the right UPJ and total atrophy of the left kidney. Case was discussed with the on-call urologist Dr. Olivares and recommended patient needs to be n.p.o. for surgical intervention. He was transferred to [facility] for further care. Patient is history of CKD due to the longstanding DM, HTN and recurrent KELSEA with baseline serum creatinine 1.4 to 1.6 mg/dL. He follows in my office for his CKD care. Patient after arrival at the [facility] hada repeat labs done which showed persistent [...] visible mass Skin: No rashes or bruises CHIEF ORDER DISPATCHER: Awake,Alert, following simple command Musculoskeletal: No joint [...] Tablet.Dr) 81 mg PO DAILY [facility] Stop: 08/12/23 08:59 Last Admin: 08/13/22 08:44 Dose: Not Given Atorvastatin Calcium (Atorvastatin 40 Mg Tablet) 40 mg PO HS [facility] Stop: 08/11/23 21:59 Last Admin: 08/12/22 21:07 Dose: 40 mg Dextrose (Dextrose 50% In Water 25 Gm/50 Ml Syringe) 0 gm IV-PUSH PRN PRN PRN Reason: Hypoglycemia Stop: 08/11/23 14:01 Glucose (Dextrose 40% Gel 15 Gm Tube) 0 gm PO PRN PRN PRN Reason: Hypoglycemia Stop: 08/11/23 14:01 Guaifenesin (Guaifenesin 600 Mg Tab.Er.12h) 1,200 mg PO BID [facility] Stop: 08/12/23 20:59 Last Admin: 08/13/22 08:45 [...] Vial) 5,000 unit SUBCUT Q8HR [facility] Stop: 08/12/23 21:59 Last Admin: 08/13/22 07:08 Dose: 5,000 unit Hydralazine HCl (Hydralazine 20 Mg/Ml Vial) 10 mg IV-PUSH Q4H PRN PRN Reason: Hypertension Stop: 08/11/23 13:40 Last Admin: 08/12/22 23:04 Dose: 10 mg Ceftriaxone Sodium (Rocephin) 1 gm in 50 mls @ 100 mls/hr IV Q24H [facility] Last Admin: 08/12/22 16:24 Dose: 100 mls/hr Azithromycin (Zithromax) 500 mg in 250 mls @ 250 mls/hr IV Q24H [facility] Last Admin: 08/12/22 15:06 Dose: 250 mls/hr Sodium Chloride (0.9% Sodium Chloride 1,000 Ml) 1,000 mls @ 0 mls/hr MISCELLANE.Q0M PRN PRN Reason: Dialysis Stop: 08/11/23 14:19 Last Infusion: 08/12/22 12:38 Dose: Infused Insulin Aspart (Insulin Aspart 300 Units/3 Ml Insuln.Pen) 0 units SUBCUT TID.WM.HS [facility]; Protocol Stop: 08/11/23 16:59 Last Admin: 08/13/22 08:44 Dose: Not Given Insulin Glargine (Insulin Glargine 300 Units/3 Ml Insuln.Pen) 5 units SUBCUT DAILY [facility] Stop: 08/13/23 08:59 Last Admin: 08/13/22 08:45 Dose: Not Given Metoprolol Tartrate (Metoprolol Tartrate 50 Mg Tablet) 50 mg PO BID [facility] Stop: 08/11/23 20:59 Last Admin: 08/13/22 08:45 [...] <Electronically signed by Alicia León MD> 08/13/22 1122 [facility] Work Phone: [phone] Progress note Author Cade Alvarez [facility] August 13, 2022 9:40am Note Date/Time August 13, 2022 9:35am [facility] [address] [place] [address] Cardiology Progress Note Signed Patient: Victorino Smyth MR#: [id number] : 1940 Acct:[id number] Age/Sex: 82 / M Adm Date: 3 Loc: Room: [address] [place] [address] Type: ADM IN Attending Dr: Hiral Interiano [...] MPV Neut % (Auto) Lymph % (Auto) [place] % (Auto) Eos % (Auto) Baso % (Auto) Nucleat RBC Rel Count Neut # (Auto) Lymph # (Auto) [place] # (Auto) Eos # (Auto) Baso # [...] % (Auto) 79.2 Lymph % (Auto) 9.6 [place] % (Auto) 9.8 Eos % (Auto) 0.9 Baso % (Auto) 0.5 Nucleat RBC Rel Count 0.1 Neut # (Auto) 7.8 H Lymph # (Auto) 0.9 L [place] # (Auto) 1.0 H Eos # (Auto) [...] MPV Neut % (Auto) Lymph % (Auto) [place] % (Auto) Eos % (Auto) Baso % (Auto) Nucleat RBC Rel Count Neut # (Auto) Lymph # (Auto) [place] # (Auto) Eos # (Auto) Baso # [...] Code(s): I25.10 - Atherosclerotic heart disease of [place] coronary artery without angina pectoris Status: Acute Plan: Preoperative recommendations as above. Plan Thank you very much for this kind consultation and for allowing us to participate in the care of this very pleasant patient Time spent with patient Time Spent With Patient (min): 30 Documented By: Cade Alvarez MD 08/13/2299 Signed By: <Electronically signed by Cade Alvarez MD> 08/13/2207 [facility] Work Phone: [phone] Progress note Author Hiral Interiano [facility] August 12, 2022 4:04pm Note Date/Time August 12, 2022 4:04pm [facility] [address] [place] [address] Hospitalist Progress Note Signed Patient: Victorino Smyth MR#: [id number] : 1940 Acct:[id number] Age/Sex: 82 / M Adm Date: 3 Loc: Room: [address] [place] [address] Type: ADM IN Attending Dr: Hiral Interiano [...] kidney disease: Plan: Patient was transferred from [place] ER when found to have acute kidney [...] <Electronically signed by Hiral Interiano MD> 08/12/22 3039 [facility] Work Phone: [phone] Progress note Author Alicia León [facility] August 12, 2022 11:29am Note Date/Time August 12, 2022 11:24am [facility] [address] [place] [address] Nephrology Progress Note Signed Patient: Victorino Smyth MR#: [id number] : 1940 Acct:[id number] Age/Sex: 82 / M Adm Date: 3 Loc: Room: [id number] Type: ADM IN Attending Dr: Hiral Interiano MD Copies to: ~ Date of Service: 08/12/2022 Subjective Subjective Narrative: This is a 82-year-old male with a medical history of coronary artery disease s/pPCI, nephrolithiasis, CKD, diabetes mellitus, hypertension, dyslipidemia was presented to the emergency room of [facility] for generalized weakness and low urine output. On evaluation emergency room patient was found to have a life- threatening hyperkalemia with serum potassium 7 mmol/L, acute kidney injurywith elevated serum creatinine 17.8 mg/dL, metabolic acidosis serum bicarbonate 13.5 mmol/L. He was given insulin D50 calcium gluconate in the [place] emergency room. He had a CAT scan abdomen pelvis done which showed obstructive kidney stones in the right UPJ and total atrophy of the left kidney. Case was discussed with the on-call urologist Dr. Olivares and recommended patient needs to be n.p.o. for surgical intervention. He was transferred to [facility] for further care. Patient is history of CKD due to the longstanding DM, HTN and recurrent KELSEA with baseline serum creatinine 1.4 to 1.6 mg/dL. He follows in my office for his CKD care. Patient after arrival at the [facility] hada repeat labs done which showed persistent [...] visible mass Skin: No rashes or bruises CHIEF ORDER DISPATCHER: Awake,Alert, following simple command Musculoskeletal: No joint [...] Tablet) 40 mg PO HS [facility] Stop: 08/11/23 21:59 Last Admin: 08/11/22 21:08 [...] @ 100 mls/hr IV Q24H [facility] Last Infusion: 08/11/22 21:49 Dose: Infused Azithromycin (Zithromax) 500 mg in 250 mls @ 250 mls/hr IV Q24H [facility] Last Admin: 08/11/22 16:00 Dose: 250 mls/hr Sodium Chloride (0.9% Sodium Chloride 1,000 Ml) 1,000 mls @ 0 mls/hr MISCELLANE.Q0M PRN PRN Reason: Dialysis Stop: 08/11/23 14:19 Last Admin: 08/12/22 10:24 Dose: 999 mls/hr Insulin Aspart (Insulin Aspart 300 Units/3 Ml Insuln.Pen) 0 units SUBCUT TID..[facility]; Protocol Stop: 08/11/23 16:59 Last Admin: 08/12/22 08:07 Dose: Not Given Metoprolol Tartrate (Metoprolol Tartrate 50 Mg Tablet) 50 mg PO BID [facility] Stop: 08/11/23 20:59 Last Admin: 08/12/22 08:20 [...] Rehan Fuentes M.D.08/11/2022 4:10 PM Dictation Location: [place] [address] Any impression(s) listed above is documentation that [...] <Electronically signed by Alicia León MD> 08/12/22 [facility] Work Phone: [phone] Progress note Author Cade Alvarez [facility] August 12, 2022 10:04am Note Date/Time August 12, 2022 10:05am [facility] [address] [place] [address] Cardiology Progress Note Signed Patient: Victorino Smyth MR#: [id number] : 1940 Acct:[id number] Age/Sex: 82 / M Adm Date: 3 Loc: Room: [address] [place] [address] Type: ADM IN Attending Dr: Hiral Interiano [...] % (Auto) N/A Lymph % (Auto) N/A [place] % (Auto) N/A Eos % (Auto) N/A Baso % (Auto) N/A Nucleat RBC Rel Count N/A Neut # (Auto) N/A Lymph # (Auto) N/A [place] # (Auto) N/A Eos # (Auto) N/A [...] MPV Neut % (Auto) Lymph % (Auto) [place] % (Auto) Eos % (Auto) Baso % (Auto) Nucleat RBC Rel Count Neut # (Auto) Lymph # (Auto) [place] # (Auto) Eos # (Auto) Baso # [...] MPV Neut % (Auto) Lymph % (Auto) [place] % (Auto) Eos % (Auto) Baso % (Auto) Nucleat RBC Rel Count Neut # (Auto) Lymph # (Auto) [place] # (Auto) Eos # (Auto) Baso # [...] % (Auto) 88.0 Lymph % (Auto) 4.4 [place] % (Auto) 7.4 Eos % (Auto) 0.0 Baso % (Auto) 0.2 Nucleat RBC Rel Count 0.0 Neut # (Auto) 11.8 H Lymph # (Auto) 0.6 L [place] # (Auto) 1.0 H Eos # (Auto) [...] MPV Neut % (Auto) Lymph % (Auto) [place] % (Auto) Eos % (Auto) Baso % (Auto) Nucleat RBC Rel Count Neut # (Auto) Lymph # (Auto) [place] # (Auto) Eos # (Auto) Baso # [...] Code(s): I25.10 - Atherosclerotic heart disease of [place] coronary artery without angina pectoris Status: Acute Plan: Preoperative recommendations as above. Plan Thank you very much for this kind consultation and for allowing us to participate in the care of this very pleasant patient Time spent with patient Time Spent With Patient (min): 30 Documented By: Cade Alvarez MD 08/12/22 0959 Signed By: <Electronically signed by Cade Alvarez MD> 08/12/22 1006 [facility] Work Phone: [phone]) 331-548002-15-2023 Consult note Author Alicia León [facility] August 11, 2022 5:46pm Note Date/Time August 11, 2022 4:00pm [facility] [address] [place] [address] Nephrology Consult Note Signed with Nancy Patient: Victorino Smyth MR#: [id number] : 1940 Acct:[id number] Age/Sex: 82 / M Adm Date: 3 Loc: Room: [address] [place] [address] Type: ADM IN Attending Dr: Hiral Interiano MD Copies to: MD Jose Campoverde MD Mazhar Rahman, MD~ ADDENDUM1 patient was seen and examined during HD and case was d/w HD RN. No issues were reported by patient and RN Addendum Documented By: Alicia León MD 08/11/221745 Addendum Signed By: <Electronically signed by Alicia León MD> 08/11/221745 Providers Consult Date: 08/11/22 Requesting Provider: Hiral Interiano MD Primary Care Provider: Jose Alfaro MD HPI Reason for Consult: KELSEA on CKD, hyperkalemia, metabolic acidosis management History of Present Illness: This is a 82-year-old male with a medical history of coronary artery disease s/pPCI, nephrolithiasis, CKD, diabetes mellitus, hypertension, dyslipidemia was presented to the emergency room of [facility] for generalized weakness and low urine output. On evaluation emergency room patient was found to have a life- threatening hyperkalemia with serum potassium 7 mmol/L, acute kidney injurywith elevated serum creatinine 17.8 mg/dL, metabolic acidosis serum bicarbonate 13.5 mmol/L. He was given insulin D50 calcium gluconate in the [place] emergency room. He had a CAT scan abdomen pelvis done which showed obstructive kidney stones in the right UPJ and total atrophy of the left kidney. Case was discussed with the on-call urologist Dr. Olivares and recommended patient needs to be n.p.o. for surgical intervention. He was transferred to [facility] for further care. Patient is history of CKD due to the longstanding DM, HTN and recurrent KELSEA with baseline serum creatinine 1.4 to 1.6 mg/dL. He follows in my office for his CKD care. Patient after arrival at the [facility] hada repeat labs done which showed persistent [...] (Atorvastatin 40 Mg Tablet) 40 mg PO [facility] Stop: 08/11/23 21:59 Dextrose (Dextrose [...] 50 mls @ 100 mls/hr IV Q24H [facility] Azithromycin (Zithromax) 500 mg in 250 mls @ 250 mls/hr IV Q24H [facility] Sodium Chloride (0.9% Sodium Chloride 1,000 Ml) 1,000 mls @ 0 mls/hr MISCELLANE .Q0M PRN PRN Reason: Dialysis Stop: 08/11/23 14:19 Insulin Aspart (Insulin Aspart 300 Units/3 Ml Insuln.Pen) 0 units SUBCUT TID.WM.[facility]; Protocol Stop: 08/11/23 16:59 Metoprolol Tartrate (Metoprolol Tartrate 50 Mg Tablet) 50 mg PO BID [facility] Stop: 08/11/23 20:59 Nitroglycerin (Nitroglycerin 0.4 Mg [...] visible mass Skin: No rashes or bruises CHIEF ORDER DISPATCHER: Awake,Alert, following simple command Musculoskeletal: No joint [...] Patient consented for dialysis. I consulted the neurology teacher for hemodialysis catheter placement which was placed [...] team. Documented By: Alicia León MD 08/11/22 7983 Signed By: <Electronically signed by Alicia León MD> 08/11/22 9307 [facility] Work Phone: [phone] Consult note Author Cade Alvarez [facility] August 11, 2022 4:47pm Note Date/Time August 11, 2022 4:36pm [facility] [address] [place] [address] Cardiology Consult Note Signed Patient: Victorino Smyth MR#: [id number] : 1940 Acct:[id number] Age/Sex: 82 / M Adm Date: 3 Loc: Room: [address] [place] [address] Type: ADM IN Attending Dr: Hiral Interiano MD Copies to: MD Hiral James MD Stephen M Tann, MD~ Cardiology HPI History of Present Illness Consult Date: 08/11/22 Reason for Consult: Preoperative cardiovascular evaluation given history of LAD PCI in 2013 and 2017 HPI: Mr. Smyth is a 82 year old male with known coronary heart disease history of initial PCI to the proximal LAD in 2012 with repeat PCI in the setting of acute coronary syndrome in 2017. Patient initially presented to [place] emergency department complaining of shortness of breath [...] # (Auto) N/A Lymph # (Auto) N/A [place] # (Auto) N/A Eos # (Auto) N/A [...] nonspecific abnormality, ST segment, and/or T wave [place], pacemaker, normal Normal tracing: no change compared [...] Code(s): I25.10 - Atherosclerotic heart disease of [place] coronary artery without angina pectoris Plan Thank you very much for this kind consultation and for allowing us to participate in the care of this very pleasant patient Documented By: Cade Alvarez MD 08/11/22 5989 Signed By: <Electronically signed by Cade Alvarez MD> 08/11/22 1647 [facility] Work Phone: 1(225) 842-946402-15-2023 Consult note Author Ni Olivares [facility] August 11, 2022 3:24pm Note Date/Time August 11, 2022 3:24pm [facility] [address] [place] [address] Urology Consult Note Signed Patient: Victorino Smyth MR#: [id number] : 1940 Acct:[id number] Age/Sex: 82 / M Adm Date: 3 Loc: Room: [address] [place] [address] Type: ADM IN Attending Dr: Hiral Interiano MD Copies to: MD Ni James MD Mazhar Rahman, MD~ History of Present Illness Consult Details Consult Date: 08/11/2022 Requesting Provider: Hiral Interiano MD HPI: Mr. Smyth is an 82-year-old man transferred from the [facility] ear[facility]ert[facility]. The patient presented with some diffuse [...] the emergency room prior to transfer to [facility]. He finished breakfast at about 11 [...] P documented by Dr. Interiano earlier today [facility] Vaccinated for COVID-19?: Yes Medical History (Updated [...] % (Auto) N/A, Lymph % (Auto) N/A, [place] % (Auto) N/A, Eos % (Auto) N/A, Baso % (Auto) N/A, Nucleat RBC Rel Count N/A, Neut # (Auto) N/A, Lymph # (Auto) N/A, [place] # (Auto) N/A, Eos # (Auto) N/A, [...] actually worse than that noted at the [facility] at a current level of 7.4. Due [...] <Electronically signed by MD Ni Olivares> 08/11/22 9101 [facility] Work Phone: 1(253) 466-724602-15-2023 History and physical note Author Hiral Interiano [facility] August 11, 2022 2:02pm Note Date/Time August 11, 2022 2:02pm [facility] [address] [place] [address] Hospitalist H&P Signed Patient: Victorino Smyth MR#: [id number] : 1940 Acct:[id number] Age/Sex: 82 / M Adm Date: 3 Loc: 3T Room: [address] [place] [address] Type: ADM IN Attending Dr: Hiral Interiano [...] of nephrolithiasis. Patient has been transferred from [facility] ER for acute kidney injury and obstructing [...] repeated labs available in the record from [facility]. Chest x-ray read as mild [...] a similar feeling when he had an WI in 2017 and prior to that in [...] noted below or in HPI [facility] Medical History (Updated 08/11/22 @ 13:59 by [...] 2. He has been transferred from [facility] for obstructive uropathy with worsening renal failure and hyperkalemia. I was informed the patient was given cocktail for hyperkalemia with no repeated labs available in the record. Patient arrival to floor complaining of midsternal discomfort and mentioned having similar feeling when he had an WI. Does appear tachypneic likely from metabolic acidosis. [...] 08/11/22 1402 [facility] Work Phone: [phone]) 937-739802-15-2023 [facility]* Encounter Date Diagnosis Assessment Notes Treatment Notes Treatment Clinical Notes May, Diabetes mellitus wi th chronic kidney disease (ICD-10 - E11.22) He has qef-rgiipnx-xous ndent type 2 diabetes and currently takes [...] have advised him to adequately hydrate himself. [employer] Other 08-11-2022 NotePROCEDURE: XR KNEE LT 4V or > COMPARISON: None. HISTORY: Pain of left knee joint FINDINGS: BONES:No acute fracture or dislocation. Minimal degenerative changes. SOFT TISSUES:Negative. No visible soft tissue swelling. EFFUSION:None visible. OTHER: Vascular calcification IMPRESSION: No acute abnormality Electronically authenticated by: TYLER MONSIVAIS Date: 2022-02-04 07:23[facility]05-31-2022 Evaluation note* Encounter Date Diagnosis Assessment Notes Treatment Notes Treatment Clinical Notes October, Diabetes mellitus wi th chronic kidney disease (ICD-10 - E11.22) He has key-efeagox-deeru dent type 2 diabetes and currently takes [...] have advised him to adequately hydrate himself. [employer] Other 05-02-2022 Hospital Discharge instructions Follow Up Care 10/26/2021 10:06:54 With:KADE OLIVEROS, Milton Brewer, URL Address: [address] [place] [address] [place] [address]- When: Unknown [facility] 05-02-2022 Hospital Discharge instructions Patient Education 10/26/2021 [...] 06/13/2006 Document Revised: 03/02/2019 Document Reviewed: 05/13/2017 [employer] Patient Education 2020 [employer]. 10/26/2021 09:44:44 Urinary Frequency, Adult Urinary Frequency, [...] to keep your urine pale yellow. ?Take ixry-gzx-wngjuzv or prescription medicines. ?Eat foods that are high in fiber, such as beans, whole grains, and fresh fruits and vegetables. ?Limit foods that are high in fat and processed sugars, such as fried or sweet foods. General instructions Take eulq-mae-gwldjus and prescription medicines only as told by [...] the muscles that help control urination. Take zssf-evn-mopfgoa and prescription medicines only as told by your health care provider. Contact a health care provider if your symptoms do not improve or get worse. This information is not intended to replace advice given to you by your health care provider. Make sure you discuss any questions you have with your health care provider. Document Released: 04/09/2010 Document Revised: 12/21/2018 Document Reviewed: 12/21/2018 [employer] Patient Education 2020 [employer]. 10/26/2021 09:44:41 Kidney Stones, Ltjl-bz-Jusk Kidney Stones Kidney stones are rock-like masses [...] Follow these instructions at home: Medicines Take fbmy-ayy-drsashx and prescription medicines only as told by [...] 10/30/2019 Document Reviewed: 10/30/2019 Elsevier Patient Education 2020 [employer]. Follow Up Care 02/23/2021 14:09:11 With:KADE OLIVEROS, Milton Brewer, URL Address: [facility] [address] , [place] [address]- When:10/26/2022 [facility] 11-30-2021 Evaluation note* Encounter Date Diagnosis Assessment Notes Treatment Notes Treatment Clinical Notes Apr, Diabetes mellitus wi th chronic kidney disease (ICD-10 - E11.22) He has opo-kgktmvg-iomsh dent type 2 diabetes and currently takes [...] have advised him to adequately hydrate himself. [employer] Other Evaluation + Plan note Future Appointments Appointment Date:10/29/2022 08:45:00 AM Scheduled Provider:Milton BRAUN MD Location:[facility] Appointment Type:URO Office Visit [facility] evaluation + Plan note Future Appointments Appointment Date:09/14/2022 07:30:00 AM Scheduled Provider: Location:[facility] Appointment Type:Surgical PAT FT Appointment Date:10/07/2022 12:00:00 PM Scheduled Provider: Location:[facility] Appointment Type:Surgery FT Appointment Date:10/29/2022 08:45:00 AM Scheduled Provider:Milton BRANU MD Location:[facility] Appointment Type:URO Office Visit [facility] Evaluation + Plan note Future Appointments Appointment Date:11/18/2022 10:30:00 AM Scheduled Provider: Location:[facility] Appointment Type:Surgical PAT FT Appointment Date:12/02/2022 11:45:00 AM Scheduled Provider: Location:[facility] Appointment Type:Surgery FT [facility] evaluation + Plan note Future Appointments Appointment Date:06/12/2024 11:00:00 AM Scheduled Provider:Ni OLIVARES MD Location:[facility] Appointment Type:URO Office Visit Future Scheduled Tests Laboratory* Total Protein 24 Hour Urine 02/14/23 [facility] evaluation + Plan note Future Appointments Appointment Date:12/10/2024 11:15:00 AM Scheduled Provider:Ni OLIVARES MD Location:[facility] Appointment Type:URO Office Visit Diagnostic Tests Pending * PSA Total 06/12/24 [facility] evaluation + Plan note Future Appointments Appointment Date:06/11/2025 10:00:00 AM Scheduled Provider:Ni OLIVARES MD Location:[facility] Appointment Type:URO Office Visit Diagnostic Tests Pending * PSA Free & Total 12/10/24 [facility] evaluation + Plan note Future Appointments Appointment Date:06/11/2025 10:00:00 AM Scheduled Provider:Ni OLIVARES MD Location:[facility] Appointment Type:URO Office Visit [facility] evaluation note* Diagnosis Onset Date Resolution Status Acute kidney injury superimp osed on chronic kidney disease acute Acute kidney insufficiency a cute CAD (coronary artery disease) acute CKD (chronic kidney disease) stage 3, GFR 30-59 ml/min acute Elevated PSA acute Hydronephrosis with ureteral calculus acute Hyperkalemia acute [id number] acute Left renal atrophy acute Metabolic acidosis acute Obstructive nephropathy acut e Preoperative cardiovascular examination acute Right ureteral stone acute 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 Diabetes chronic [facility] Work Phone: Evaluation noteNo assessment information available [facility] Work Phone: evaluation note* Diagnosis Onset Date Resolution Status Secondary hyperparathyroidism acute CKD (chronic kidney disease) stage 3, GFR 30-59 ml/min chronic [id number] chronic Left renal atrophy chronic Metabolic acidosis chronic 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 [facility] Work Phone: evaluation note* Diagnosis Onset Date Resolution Status Admit Date Hyperuricemia acute December 03 2:13pm Nephrolithiasis acute December 03, 2024 2:13pm [...] kidney disease chronic December 03, 2024 2:13pm [facility] Work Phone: history general Narrative - Reported* [...] KIDNEY STONE REMOVAL Hospitalization History SEE ABOVE [employer] Other history general Narrative - Reported* Type [...] KIDNEY STONE REMOVAL Hospitalization History SEE ABOVE [employer] Other [facility] general Narrative - Reported* Type Description Date [...] KIDNEY STONE REMOVAL Hospitalization History SEE ABOVE [employer] Other [facility] general Narrative - Reported* Type Description Date [...] History KELSEA, HYPERKALEMIA, METAB OLIC ACIDOSIS 08/11/2022 [employer] Other Hospital course Narrative No data available for this section [facility] Discharge instructions Additional Instructions Follow-up with your Primary Assistant Food Service Director in 4 weeks. Avoid NSAIDs for pain control. Call [facility] Scheduling on Tuesday at [phone] to arrange a follow up CT scan regarding lung nodule in 4 weeks. Maintain occlussive dressing to HD catheter removal site for 48 hours - return to the Emergency Room for oozing or drainage from catheter exit site, noticeable swelling or itching around neck, shortness of [facility]: Hospital Discharge instructions No data available for this section [facility] note No data available for this section [facility] Chief Complaint and Reason for Visit Chief Complaint ACUTE RENAL FAILURE Reason for Visit Acute kidney injury superimposed on chronic kidney disease Acute kidney insufficiency CAD (coronary artery disease) CKD (chronic kidney disease) stage 3, GFR 30-59 ml/min Elevated PSA Hydronephrosis with ureteral calculus Hyperkalemia [id number] Left renal atrophy Metabolic acidosis Obstructive nephropathy Preoperative cardiovascular examination Right ureteral stone Type 2 diabetes mellitus with diabetic chronic kidney disease Diabetes Chief Complaint n20.0 Chief Complaint n20.0 N40.1 Chief Complaint n20.0 N40.1 N20.0 Chief Complaint Unknown Chief Complaint Unknown RENAL 6 month f/u Reason for Visit Secondary hyperparat hyroidism CKD (chronic kidney disease) stage 3, GFR 30-59 ml/min [id number] Left renal atrophy Metabolic acidosis Type 2 diabetes mellitus with diabetic chronic kidney disease Chief Complaint Admit Date RENAL 6 MONTH [...] 03, 2024 2:13pm Left renal atrophy December 03, 2024 2:13p m Type 2 diabetes mellitus with diabetic c hronic kidney disease December 03, 2024 2:13pm Advance Directives No Advanced Directives Records Found [...] (unrecognized sec tion and content) Team Status: Active Member Role Status Sarabjit Alfaro MD Primary Care Provider Active Team Status: Active Member Role Status Sarabjit Alfaro MD Primary Care Provider Active Start: November 27, 2024 Alicia León MD Attending Provider Active Start : November 27, 2024 Team Status: Inactive Member Role Status Sarabjit Alfaro MD Primary Care Provider Active Start: December 03, 2024 End: December 03, 2024 Alicia León MD Attending Provider Active Start : December 03, 2024 End: December 03, 2024 Team Status: Inactive Member Role Status Dates Jose Alfaro MD Primary Care Provider Active Hiral [...] MD Other Provider Active Jen Tamayo , [facility]- Other Provider Active Aaliyah Mitchell MD Other Provider Active Alicia León MD Other Provider Active Milton Bruan MD Other Provider Active Ni Olivares MD Other Provider Active Yogesh Omalley MD Other Provider Active Kiran Eldridge Jr, MD Other Provider Active Fátima Ivey MD Other Provider Active Jennifer Villarreal MD Other Provider Active Bipin Barclay MD Other Provider Active Team Status: Inactive Member Role Status Sarabjit Alfaro MD Primary Care Provider Active Ni Olivares MD Attending Provider Active Team Status: Inactive Member Role Status Sarabjit Alfaro MD Primary Care Provider Active Start: October 18, 2023 End: October 18, 2023 NON STAFF Attending Provider Active Start: 2023 End: October 18, 2023 Team Status: Active Member Role Status Sarabjit Alfaro MD Primary Care Provider Active Start: December 14, 2023 Alicia León MD Attending Provider Active Start : December 14, 2023 Team Status: Inactive Member Role Status Sarabjit Alfaro MD Primary Care Provider Active Start: [...] section and content) DATE CREATED AUTHOR 10/03/2022 [facility] DATE CREATED AUTHOR AUTHOR'S ORGANIZ ATION 12/07/2022 [facility] DATE CREATED AUTHOR AUTHOR'S ORGANIZ ATION 10/27/2023 [facility] EPIC DATE CREATED AUTHOR AUTHOR'S ORGANIZ ATION 12/21/2023 [facility] DATE CREATED AUTHOR AUTHOR'S ORGANIZ ATION 05/23/2024 [facility] DATE CREATED AUTHOR AUTHOR'S ORGANIZ ATION 12/12/2024 [facility] DATE CREATED AUTHOR AUTHOR'S ORGANIZ ATION 12/13/2024 [facility] Goals (unrecognized section and content) Goals [...] BE BASED ON THE PRIMARY CLINICAL RECORDS. [employer] [facility]. provides no warranty or guarantee of the accuracy or completeness of information in this document.
[2024-12-13 08:30] LABS: Basophils Percent Auto 0.5 % (0.2-2.0); Eosinophils Absolute Auto 0.2 10^3/uL (0.0-0.7); Hematocrit 39.6 % (42.0-54.0); Hemoglobin 13.4 g/dL (14.0-18.0); Immature Granulocytes Abs Auto 0.04 10^3/uL (0.00-0.03); Immature Granulocytes Pct Auto 0.7 % (0.0-0.5); Lymphocytes Absolute Auto 1.1 10^3/uL (1.2-3.8); Lymphocytes Percent Auto 18.4 % (20.5-60.0); Mean Corpuscular HGB Conc 33.8 g/dL (29.9-35.2); Mean Corpuscular Hemoglobin 35.2 pg (25.9-34.0); Mean Corpuscular Volume 103.9 fL (80.0-94.0); Mean Platelet Volume 10.6 fL (9.5-13.5); Monocytes Absolute Auto 0.6 10^3/uL (0.3-0.8); Monocytes Percent Auto 10.1 % (1.7-12.0); Neutrophils Percent Auto 66.3 % (43.0-75.0); Platelet Count 155 10^3/uL (150-450); Red Blood Count 3.81 10^6/uL (4.70-6.10); Red Cell Distribution Width 13.1 % (11.0-15.0)
[2024-12-13 09:49] LABS: Alanine Aminotransferase 31 U/L (16-63); Albumin Globulin Ratio 1.1; Albumin Level 3.3 g/dL (3.4-5.0); Alkaline Phosphatase 69 U/L (46-116); Anion Gap 12.9; Aspartate Amino Transferase 23 U/L (15-37); BUN Creatinine Ratio 14.6; Bilirubin Total 0.8 mg/dL (0.2-1.0); Calcium 8.7 mg/dL (8.5-10.1); Carbon Dioxide 26.4 mmol/L (21.0-32.0); Chloride 107 mmol/L (98-107); Estimated GFR (African America 49 (>=60 mL/min/1.73m^2); Estimated GFR (Non-African Ame 40 (>=60 mL/min/1.73m^2); Globulin 2.9 g/dL; Glucose 153 mg/dL (74-106); Potassium 4.3 mmol/L (3.5-5.1); Sodium 142 mmol/L (136-145); Total Protein 6.2 g/dL (6.4-8.2); Troponin I High Sensitivity 6.2 pg/mL (4.0-76.1)
== END 2024-12-13 07:50 | disposition home or self-care (01) ==
LOC: NM 07:54
PROVIDERS: PCP Family Medicine; Visit Provider Family Medicine
DX: I25.10 Atherosclerotic heart disease of native coronary artery without angina pectoris (principal); I50.30 Unspecified diastolic (congestive) heart failure; I11.0 Hypertensive heart disease with heart failure
CPT/HCPCS: 36415; 80053; 83880; 84484; 85025

== ENCOUNTER 2024-12-25 10:23 | Outpatient (OUT) | payer MEDICARE, SELFPAY ==
--- OUTSIDE RECORDS SUMMARY | 2024-12-24 09:00 | XMS_ITS | Encounter Summary ---
Author Organization [facility] Address [address] [place] [address] Care Team Providers Care Business Professor Name Role Phone Jose Danielson MD Primary Care Provider [phone] Encounter Details Date Type Department Care Team (Late st Contact Info) Description 12/24/2024 9:00 AM EDT Office Visit [facility] at [facility] [address] [place] [address] Gato Huynh MD [address] [facility] [address] [facility] [place] [phone] Coronary artery disease involving [place] coronary artery of [place] heart with other form of angina pectoris (Primary Dx); Cardiovascular stress test abnormal; Shortness of breath; Mixed hyperlipidemia; Essential hypertension; Status post insertion of drug eluting coronary artery stent; History of myocardial infarction; Stage 3b chronic kidney disease (CMS/HCC) Social History Tobacco Use Types Packs/Day Years [...] on file documented as of this encounter Last Filed Vital Signs Vital Sign Reading Time Taken Comments Blood Pressure 110/60 12/24/2024 9:11 AM EDT Pulse 72 12/24/2024 9:11 AM EDT Temperature - - Respiratory Rate - - Oxygen Saturation 93% 12/24/2024 9:11 AM EDT Inhaled Oxygen Concentration - - Weight 127 kg (279 lb) 12/24/2024 9:11 AM EDT Height 175.3 cm (5' 9 ) 12/24/2024 9:11 AM EDT Body Mass Index 41.2 12/24/2024 9:11 AM EDT documented in this encounter Progress Notes * Gato Huynh MD - 12/24/2024 9:00 AM EDT Images from the original note were not included. [place] [facility] Subjective Victorino Ricketts is a 84 y.o. year old male patient being seen for follow up abnormal stress test per Dr. Danielson. Patient's been having intermittent chest pain lately, which is concerning to him. Sometimes it radiates directly through to his back, and down his LUE. C/o increased SOB. Had labs 12/13/2024. Says his BP this morning at home was 120/60, which is low for his normal morning BP per patient. Patient Active Problem List Diagnosis Benign prostatic hyperplasia Chest pain Coronary atherosclerosis Essential hypertension Hyperlipidemia 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CMS/HCC) Type 2 diabetes mellitus without complication (CMS/HCC) Pre-operative cardiovascular examination Carpal tunnel syndrome Acute renal failure Anticoagulated Bilateral ureteral obstruction BPH associated with [...] (CMS/HCC) Right distal ureteral calculus Secondary hyperparathyroidism CKD (chronic kidney disease) stage 3, GFR 30-59 ml/min (CMS/HCC) Clot retention of urine Coronary artery disease Cardiovascular stress test abnormal Shortness of breath Family History Problem Relation Name Age of Onset No Known Problems Mother No Known Problems Father Social History Tobacco Use Smoking status: Never Smokeless tobacco: Never Substance Use Topics Alcohol use: Yes Comment: humberto Gleason is seen for follow up. He is an 84 yo man with prior history of CAD and drug eluting stenting of LAD in March of 2013, and then developed acute [place] related to ISR of the LAD stent on 09/28/2016 and underwent emergent PromusDES stent to the LAD at [facility], was on Brilinta but currently on [...] procedure. The stent was removed. Today he is seen in follow-up due to abnormal stress test that was ordered by Dr. Jose Danielson due to having chest pain. He reports that recently he has been having chest pain located in the center ofthe chest with radiation to the left side that happens with any exertion. This is happening over the past 3 to 4 weeks. He reports that it also radiates to the left arm. He started taking sublingual nitroglycerin and he got relief with that. He also reports worsening of his shortness of breath on exertion. This is happening with little activity NYHA class III. He has to stop for the shortness of breath to get relieved. He also has mild lower extremity edema. Review of Systems HENT: Positive for hearing loss. Cardiovascular: Positive for chest pain, dyspnea on exertion and leg swelling (minimal). Respiratory: Positive for shortness of breath. Musculoskeletal: Positive for arthritis, back pain and joint pain. Neurological: Positive for loss of balance. All other systems reviewed and are negative. Objective Visit Vitals BP 110/60 (BP Location: Right arm, Patient Position: Sitting) Pulse 72 Ht 1.753 m (5' 9 ) Wt 127 kg (279 lb) SpO2 93% BMI 41.20 kg/m² Smoking Status Never BSA 2.49 m² Physical Exam Constitutional: Appearance: He is well-developed. [...] 90 mcg/actuation aerosol inhaler inhale 2 puffs bymouth and INTO THE LUNGS every 4 hours [...] by mouth before breakfast., Disp: , Rfl: levothyroxine (Synthroid, Levoxyl) 50 mcg tablet, levothyroxine [...] (Lopressor) 50 mg tablet, TAKE 1 TABLET BY MOUTH TWICE DAILY, Disp: 180 tablet,Rfl: 3 nitroglycerin (Nitrostat) 0.4 mg SL tablet, DISSOLVE 1 TABLET UNDER THE TONGUE EVERY 5 MINUTES NEEDED FOR CHEST PAIN. MAX OF 3 TABLETS IN 15 MINUTES. CALL 911 IF PAIN PERSISTS., Disp: 100 tablet, Rfl: 3 pioglitazone (Actos) 15 mg tablet, Take 15 mg by mouth in the morning., Disp: , Rfl: SITagliptin phosphate (Januvia) 100 mg tablet, Januvia 100 mg tablet, Disp: , Rfl: tiotropium (Spiriva Respimat) 2.5 mcg/actuation inhaler, Spiriva Respimat 2.5 mcg/actuation solution for inhalation, Disp: , Rfl: isosorbide mononitrate ER (Imdur) 60 mg 24 hr tablet, Take 2 tablets (120 mg) by mouth once daily as directed. Do not crush or chew., Disp: 180 tablet, Rfl: 3 ranolazine (Ranexa) 500 mg 12 hr tablet, Take 1 tablet (500 mg) by mouth two times daily. Do not crush, chew, or split., Disp: 180 tablet, Rfl: 3 Recent Labs Blood testing 12/13/2024: Hemoglobin 13.4, platelets 155, potassium 4.3, BUN 24, creatinine 1.64, EGFR 40, LFTs normal, NT proBNP 131. Blood testing 03/28/2024: Hemoglobin 13.3, platelets 168, potassium 4.8, BUN 19, creatinine 1.73, EGFR 38, hemoglobin A1c 6.9, LFTs within normal, triglycerides 85, cholesterol 104, LDL 45, HDL 42. 2023 Cr 1.85. eGFR 35 Hgb 9.7 11/06/22 Renal function elevated- BUN 32 CR 2.41, K+ 4.6 normal CBC stable Liver function normal Lipid level well controlled- CHOL 107 LDL- 58 Lipids 10/16/2020: Chol 121, HDL 32, trig 107, LDL 87 Blood testing 12/01/2020: Hemoglobin 14.1, potassium 4.2, BUN 20, creatinine 1.58. Blood testing 05/20/2020: BUN 17, creatinine 1.52, potassium 4.6. lipid profile from 04/05/2019, total cholesterol 102, HDL 35, triglycerides 83, LDL 50.4 01/2017: LDL 47; TG 92. 02/2017: Cr 0.97. Imaging and other tests Stress test 12/12/2024: Abnormal myocardial perfusion stress test showing evidence of inferior ischemia. Normal left ventricle systolic function, ejection fraction 75%. No evidence of transient ischemic dilatation, TID 0.8. no evidence of ischemic ECG changes seen following infusion of Lexiscan. Echocardiogram 12/01/2023: Global left ventricular systolic function is difficult to assess but appears preserved. Visually estimated ejection fraction is 55 to 60%. Normal right ventricular size and systolic function. Normal diastolic function. Valves are poorly seen. No significant valvular abnormalities. ECG 2023: Sinus rhythm. Echocardiogram 10/26/2022: Global left regular systolic function is normal, visually estimated ejection fraction is 55 to 60%. Mildly increased left ventricular wall thickness. The right ventricle appears enlarged with preserved systolic function. Mildly elevated right-sided pressures. No significantvalvular abnormalities. Anterior free space, trivial effusion versus fat pad. Echo 10/31/2020: EF 55%, trace MR, normal [...] lung disease and early emphysema. Prior testing: stress test 04/12/2019: no ischemia, fixed inferior defect. EF 60%. stress test from 08/07/2018: no ischemia, large inferior/inferoapical infarct. ECG 07/27/2018: normal sinus rhythm Assessment/Plan Diagnoses and all orders for this visit: Coronary artery disease involving [place] coronary artery of [place] heart with other form of angina pectoris - ranolazine (Ranexa) 500 mg 12 hr tablet; Take 1 tablet (500 mg) by mouth two times daily. Do not crush, chew, or split. - isosorbide mononitrate ER (Imdur) 60 mg 24 hr tablet; Take 2 tablets (120 mg) by mouth once dailyas directed. Do not crush or chew. - Case Request Lathe Operator: Coronary angiography, Right heart cath Cardiovascular stress test abnormal - Case Request Lathe Operator: Coronary angiography, Right heart cath Shortness of breath - Case Request Lathe Operator: Coronary angiography, Right heart cath Mixed hyperlipidemia Essential hypertension Status post insertion of drug eluting coronary artery stent History of myocardial infarction Stage 3b chronic kidney disease ([facility]) Victorino is an 84-year-old man with history of coronary artery disease status post stenting in the past, last time in 2017, hyperlipidemia and hypertension. He has stage IIIb chronic kidney disease. His blood pressure is controlled. I will continue same treatment. He has Recent onset symptoms of chest pain that are very concerning for angina. He has been having shortness of breath on exertion NYHA class III symptoms. He has mild leg edema. His stress test showed inferior ischemia. He is a high risk patient given his prior history. I will proceed with cardiac catheterization with right heart catheterization and coronary angiography given chest pain, dyspnea, and abnormal stress test. I have explained to him the procedure with risks and benefits, including risks of heart attack, stroke and , as well as contrast nephropathy [given his chronic kidney disease] and radiation injury. he understands and agrees. I will proceed from the left radial artery and right internal jugular vein access site. We will bring him earlier that day for precath hydration. He follows with Dr Timmons from nephrology. He also follows with pulmonary. No follow-ups on file. Gato Huynh MD documented in this encounter Plan of Treatment Upcoming Encounters Date Type Department Care Team (Late st Contact Info) Description 12/27/2024 10:30 AM EDT Hospital Encounter [facility] Heart and [facility] Vascular Lab [address] [place] [address] Gato Huynh MD [address] [facility] [address] [place] [address] Coronary artery disease involving [place] coronary artery of [place] heart with other form of angina pectoris; Cardiovascular stress test abnormal; Shortness of breath 12/27/2024 12:30 PM EDT - 12/27/2024 1:30 PM EDT Surgery [facility] Vascular Lab [address] [place] [address] Gato Huynh MD [address] [facility] [address] [facility] [place] [phone] Coronary angiography documented as of this encounter Visit Diagnoses Diagnosis Coronary artery disease involving [place] coronary artery of [place] heart with other form of angina pectoris- Primary Cardiovascular stress test abnormal Shortness of breath Mixed hyperlipidemia Essential hypertension Unspecified essential hypertension Status post insertion of drug eluting coronary artery stent History of myocardial infarction Stage 3b chronic kidney disease (CMS/HCC) Coronary artery disease involving [place] coronary artery of [place] heart with other form of angina pectoris Cardiovascular stress test abnormal Shortness of breath Coronary artery disease involving [place] coronary artery of [place] heart with other form of angina pectoris Cardiovascular stress test abnormal Shortness of breath documented in this encounter Care Teams Business Professor Relationship Specialty Start Date End Date Jose Danielson MD [address] [facility] [address] [address] PCP - General 10/14/22 documented as of this encounter
--- OUTSIDE RECORDS SUMMARY | 2024-12-25 10:25 | XMS_ITS | Clinical Summary ---
Author Organization [facility] Address [address] [place] [address] Phone Care Team Providers Care Sandal Parts Assembler Name Role Phone Unavailable Primary Care Provider [...] age to complete this topic HPV Vaccines (No Doses Required) Completed Hepatitis A Vaccines Aged Out No long [...]
--- OUTSIDE RECORDS SUMMARY | 2024-12-25 10:25 | XMS_ITS | Encounter Summary ---
Author Organization [facility] Address [address] [place] [address] Care Team Providers Care Sales Driver Name Role Phone Jose Danielson MD Primary Care Provider [phone] Reason for Visit * Reason Comments Med Refill Encounter Details Date Type Department Care Team (Late st Contact Info) Description 03/18/2022 Refill [facility] [address] [place] [phone] Gato Huynh MD [address] [place] [phone] Essential hypertension (Primary Dx) Social History Tobacco Use Types Packs/Day Years Used Date Smoking Tobacco: Never Assessed Sex and Gender Information Value Date Recorded Sex Assigned at Not on file Legal Sex Male 11:09 PM EDT Gender Identity Not on file Sexual Orientation Not on file documented as of this encounter Plan of Treatment Upcoming Encounters Date Type Department Care Team (Late st Contact Info) Description 12/27/2024 10:30 AM EDT Hospital Encounter [facility] Heart [facility] Vascular Lab [address] [place] [address] Gato Huynh MD [address] [place] [address] Coronary artery disease involving [place] coronary artery of [place] heart with other form of angina pectoris; Cardiovascular stress test abnormal; Shortness of breath 12/27/2024 12:30 PM EDT - 12/27/2024 1:30 PM EDT Surgery [facility] Heart and Vascular Center Vascular Lab [address] [place] [phone] Gato Huynh MD [address] [facility] [address] [facility] [place] [phone] Coronary angiography documented as of this encounter Visit Diagnoses Diagnosis Essential hypertension- Primary Unspecified essential hypertension Coronary artery disease involving [place] coronary artery of [place] heart with other form of angina pectoris Cardiovascular stress test abnormal Shortness of breath Coronary artery disease involving [place] coronary artery of [place] heart with other form of angina pectoris Cardiovascular stress test abnormal Shortness of breath documented in this encounter Care Teams Sales Driver Relationship Specialty Start Date End Date Jose Danielson MD [address] [place] [address] PCP - General 10/14/22 documented as of this encounter
--- OUTSIDE RECORDS SUMMARY | 2024-12-25 10:25 | XMS_ITS | Referral Summary ---
Author Organization [facility] Address [address] [place] [address] Care Team Providers Care Ug Designer Name Role Phone Jose Danielson MD Primary Care Provider [phone] Encounters Date Type Department Care Team Description 12/24/2024 9:00 AM EDT Office Visit [facility] Heart at [facility] [address] [place] [address] Gato Huynh MD Coronary artery disease involving hughes coronary artery of hughes heart with other form of angina pectoris (Primary Dx); Cardiovascular stress test abnormal; Shortness of breath; Mixed hyperlipidemia; Essential hypertension; Status post insertion of drug eluting coronary artery stent; History of myocardial infarction; Stage 3b chronic kidney disease (CMS/HCC) from Last 3 Months Allergies Active Allergy [...] MCG (5000 UT) capsule 1 capsule. Active metoprolol tartrate (Lopressor) 50 mg tabletIndications:E ssential hypertension TAKE 1 TABLET BY MOUTH TWICE DAILY 180 tablet 3 06/08/20 24 Active nitroglycerin (Nitrostat) 0.4 mg SL tabletIndications:C oronary artery disease involving hughes coronary artery of hughes heart without angina pectoris DISSOLVE 1 TABLET [...] DAILY 90 tablet 3 09/04/19 25 Active ranolazine (Ranexa) 500 mg 12 hr tabletIndications:C oronary artery disease involving hughes coronary artery of hughes heart with other form of angina pectoris Take 1 tablet (500 mg) by mouth two times daily. Do not crush, chew, or split. 180 tablet 3 12/25/19 25 Active isosorbide mononitrate ER (Imdur) 60 mg 24 hr tabletIndications:C oronary artery disease involving hughes coronary artery of hughes heart with other form of angina pectoris Take 2 tablets (120 mg) by mouth once daily as directed. Do not crush or chew. 180 tablet 3 12/25/19 25 Active isosorbide mononitrate ER (Imdur) 60 mg 24 hr tabletIndications:C hest pain, unspecified type,Coronary artery disease involving hughes coronary artery of hughes heart without angina pectoris TAKE 2 TABLETS BY MOUTH IN THE MORNING DO NOT CRUSH OR CHEW 180 tablet 3 05/29/20 24 2024 Disconti nued(Reo rder) ranolazine (Ranexa) 500 mg 12 hr tabletIndications:C oronary artery disease involving hughes coronary artery of hughes heart without angina pectoris,Stable angina pectoris due to arteriosclerosis of coronary artery TAKE 1 TABLET BY MOUTH IN THE MORNING AND AT BEDTIME . DO NOT CRUSH, CHEW, OR SPLIT 180 tablet 3 05/29/202024 Paulwisam yves(Anila kuo) Active Problems Problem Noted Date Diagnosed Date Coronary artery disease 12/24/2024 Cardiovascular stress test abnormal 12/24/2024 Shortness of breath 12/24/2024 Acute renal failure 05/21/2024 Anticoagulated 05/21/2024 Bilateral [...] Risk 10.1 % 30-day risk of , CA, or cardiac arrest EKG at last visit [...] drink = 0.6 oz pur e alcohol) [facility] Safety & Environment Answer Date Rec orded [...] Mass Index 41.2 12/24/2024 9:11 AM EDT Plan of Treatment Upcoming Encounters Date Type Department Care Team (Late st Contact Info) Description 12/27/2024 10:30 AM EDT Hospital Encounter [facility] [address] [place] [address] Gato Huynh MD [address] [facility] [address] [place] [address] Coronary artery disease involving hughes coronary artery of hughes heart with other form of angina pectoris; Cardiovascular stress test abnormal; Shortness of breath 12/27/2024 12:30 PM EDT - 12/27/2024 1:30 PM EDT Surgery [facility] [address] [facility] [place] [address] Gato Hyunh MD [address] [place] [address] Coronary angiography Insurance [employer] MEDICARE Care Teams Ug Designer Relationship Specialty Start Date End Date Jose Danielson MD [address] [place] [place] [address] PCP - General 10/14/22
--- OUTSIDE RECORDS SUMMARY | 2024-12-25 10:25 | XMS_ITS | Encounter Summary ---
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 Social History Tobacco [...] Description 12/27/2024 10:30 AM EDT Hospital Encounter [facility] Vascular Lab [address] [place] [address] Gato Huynh MD [address] [facility] [place] [address] 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; Cardiovascular stress test abnormal; Shortness of breath 12/27/2024 12:30 PM EDT - 12/27/2024 1:30 PM EDT Surgery [facility] Vascular Lab [address] [place] [address] Gato Huynh MD [address] [facility] [address] [facility] [place] [address] Coronary angiography documented as of this encounter Visit Diagnoses Diagnosis 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
--- NOTE | 2024-12-25 10:27 | US_ITS ---
The [address] [address] Patient Name: GLADYS SMYTH MRN: [id number] date: 1940 Sex: M Assigned Patient Location: US Current Patient Location: US Accession/Order Number: [id number] Exam Date: 12/25/2024 11:16 Report Date: 12/25/2024 11:20 At the request of: TRAY ALFARO MD Procedure: US renal BI BILATERAL RENAL AND BLADDER ULTRASOUND CLINICAL HISTORY: Kidney Stone COMPARISON: CT 09/12/2024 and ultrasound 06/11/2024 Estimation of renal size is approximately 13.8 cm on the right and 11.7 cm on the left. There is thinning and increased echogenicity of the left renal cortex. Three suspected stones are seen at the right kidney. The largest is at the mid to lower pole measuring 7 mm. No hydronephrosis is identified. A cyst is visualized at the upper pole on the right measuring 19 x 18 x 18 mm. There is no perinephric fluid. The urinary bladder is poorly distended with a volume of 34 mL. No obvious contour or intraluminal abnormalities are seen. US/US renal BI IMPRESSION: LEFT RENAL ATROPHY. RIGHT RENAL CYST AND SUSPECTED NEPHROLITHIASIS. NO OBSTRUCTIVE UROPATHY. Impression dictated by: Anna Hui M.D. 12/25/2024 11:20 AM Dictation Location: [place] [address] Electronically authenticated by: [id number] Y Date: 12/25/2024 11:20
== END 2024-12-25 10:24 | disposition home or self-care (01) ==
LOC: US 10:23
PROVIDERS: PCP Family Medicine; Visit Provider Family Medicine
DX: N20.0 Calculus of kidney (principal); N28.1 Cyst of kidney, acquired
CPT/HCPCS: 76775

== ENCOUNTER 2024-12-26 08:51 | Outpatient (OUT) | payer MEDICARE, SELFPAY ==
--- OUTSIDE RECORDS SUMMARY | 2024-12-13 14:53 | XMS_ITS ---
Author Organization [facility] in [place] Address [address] [place] [address] Care Team Providers Care Load Dispatcher Name Role Phone Jose Danielson Primary Care Provider REASON FOR VISIT Lab Results Encounters Encounter Location Date Provider Diagnosis [facility] [address] [facility] [address] 12/13/2024 Jose Danielson Plan Of Treatment Next Appt Details Provider Name:Jay Doty, 04/23/2025 09:00:00 AM, [address] [place], [address], Progress Notes * SMYTHAristides DUENASesDOB:[birth year] (84 yo M)Acc No.[id number]:12/13/2024 Patient: Aristides GUEVARAard :1940 A ge:84 Y S ex:Male Address:[address] [place] [address], [phone] * true * Date: Generated for Print[employer] concepcion/Fajemmag/eTransmitting on: 0 12/26/2024 08:53 AM EDT
--- OUTSIDE RECORDS SUMMARY | 2024-12-19 17:02 | XMS_ITS ---
Author Organization [facility] [place] Address [address] [place] [address] Care Team Providers Care Sod Cutter Name Role Phone Jose Danielson Primary Care Provider REASON FOR VISIT Failed stress- Encounters Encounter Location Date Provider Diagnosis [facility] [address] [facility] [place] [address] 12/19/2024 Jose Danielson Plan Of Treatment Next Appt Details Provider Name:Jay Doty, 04/23/2025 09:00:00 AM, [address] [place], [address], Progress Notes * SMYTHAristides DUENASesDOB:[birth year] (84 yo M)Acc No.[id number]:12/19/2024 Patient: Aristides GUEVARAard :1940 A ge:84 Y S ex:Male Address:[address] [place] [address], [phone] * true * Date: Generated for Print[employer] concepcion/Eve/eTransmitting on: 12/26/2024 08:53 AM EDT
--- OUTSIDE RECORDS SUMMARY | 2024-12-24 09:00 | XMS_ITS | Encounter Summary ---
Author Organization [facility] Address [address] [place] [address] Care Team Providers Care Continuous Linter Drier Operator Name Role Phone Jose Danielson MD Primary Care Provider [phone] Encounter Details Date Type Department Care Team (Late st Contact Info) Description 12/24/2024 9:00 AM EDT Office Visit [facility] Heart at [facility] [address] [place] [address] Gato Huynh MD [address] [facility] [address] [facility] [place] [phone] Coronary artery disease involving [place] coronary artery of [place] heart with other form of angina pectoris [...] from the original note were not included. [place] [facility] - [facility] Subjective Victorino Ricketts is a [...] March of 2013, and then developed acute [place] related to ISR of the LAD stent on 09/28/2016 and underwent emergent PromusDES stent to the LAD at [facility], was on Brilinta but currently [...] for this visit: Coronary artery disease involving [place] coronary artery of [place] heart with other form of angina pectoris - ranolazine (Ranexa) 500 mg 12 hr tablet; Take 1 tablet (500 mg) by mouth two times daily. Do not crush, chew, or split. - isosorbide mononitrate ER (Imdur) 60 mg 24 hr tablet; Take 2 tablets (120 mg) by mouth once dailyas directed. Do not crush or chew. - Case Request Sweeping Compound Blender: Coronary angiography, Right heart cath Cardiovascular stress test abnormal - Case Request Sweeping Compound Blender: Coronary angiography, Right heart cath Shortness of breath - Case Request Sweeping Compound Blender: Coronary angiography, Right heart cath Mixed hyperlipidemia Essential hypertension Status post insertion of drug eluting coronary artery stent History of myocardial infarction Stage 3b chronic kidney disease ([facility]) Victorino is an 84-year-old man with history [...] Description 12/27/2024 10:30 AM EDT Hospital Encounter [facility] Heart and Vascular Center Vascular Lab [address] [place] [address] Gato Huynh MD [address] [facility] [address] [place] [address] Coronary artery disease involving [place] coronary artery of [place] heart with other form of angina pectoris; Cardiovascular stress test abnormal; Shortness of breath 12/27/2024 12:30 PM EDT - 12/27/2024 1:30 PM EDT Surgery [facility] Heart and Vascular Center Vascular Lab [address] [place] [address] Gato Huynh MD [address] [facility] [address] [facility] [place] [phone] Coronary angiography documented as of this encounter Visit Diagnoses Diagnosis Coronary artery disease involving [place] coronary artery of [place] heart with other form of angina pectoris- Primary Cardiovascular stress test abnormal Shortness of breath Mixed hyperlipidemia Essential hypertension Unspecified essential hypertension Status post insertion of drug eluting coronary artery stent History of myocardial infarction Stage 3b chronic kidney disease (CMS/HCC) Coronary artery disease involving [place] coronary artery of [place] heart with other form of angina pectoris Cardiovascular stress test abnormal Shortness of breath Coronary artery disease involving [place] coronary artery of [place] heart with other form of angina pectoris Cardiovascular stress test abnormal Shortness of breath documented in this encounter Care Teams Continuous Linter Drier Operator Relationship Specialty Start Date End Date Jose Danielson MD [address] [facility] [address] [address] PCP - General 10/14/22 documented as of this encounter
--- OUTSIDE RECORDS SUMMARY | 2024-12-25 14:54 | XMS_ITS ---
Author Organization The [facility] in [place] Address [address] [place] [address] Care Team Providers Care Shorthand Reporter Name Role Phone Jose Danielson Primary Care Provider [phone] REASON FOR VISIT US results Problems Problem Type SNOMED Code ICD Code Onset Dates Problem Status W/U Status Risk Notes Problem Kidney stone (N20.0) Active confirmed Encounters Encounter Location Date Provider Diagnosis [facility] [address] [place] [address] 12/25/2024 Jose Dustinnissa Plan Of Treatment Next Appt Details Provider Name:Jay Doty, 04/23/2025 09:00:00 AM, [address] [place], [address], Progress Notes * Victorino SMYTHDOB:[birth year] (84 yo M)Acc No.[id number]:12/25/2024 Patient: Victorino GUEVARA :1940 A ge:84 Y S ex:Male Address:[address] [place] [address], [phone] * true * Date: Generated for Mini javier/Eve/eTransmitting on: 0 12/26/2024 08:53 AM EDT
--- OUTSIDE RECORDS SUMMARY | 2024-12-26 08:53 | XMS_ITS | Encounter Summary ---
Author Organization [facility] Address [address] [place] [address] Care Team Providers Care Cadd Manager Name Role Phone Jose Danielson MD Primary Care Provider [phone] Reason for Visit * Reason Comments Med Refill Encounter Details Date Type Department Care Team (Late st Contact Info) Description 03/18/2022 Refill [facility] [address] [place] [address] Gato Huynh MD [address] [place] [address] Essential hypertension (Primary Dx) Social History Tobacco [...] Description 12/27/2024 10:30 AM EDT Hospital Encounter [facility] V[facility] Lab [address] [place] [address] Gato Huynh MD [address] [place] [address] Coronary artery disease involving [place] coronary artery of [place] heart with other form of angina pectoris; Cardiovascular stress test abnormal; Shortness of breath 12/27/2024 12:30 PM EDT - 12/27/2024 1:30 PM EDT Surgery [facility] Heart and [facility] Center Vascular Lab [address] [place] [phone] Gato Huynh MD [address] [facility] [address] [facility] [place] [address] Coronary angiography documented as of this encounter Visit Diagnoses Diagnosis Essential hypertension- Primary Unspecified essential hypertension Coronary artery disease involving [place] coronary artery of [place] heart with other form of angina pectoris Cardiovascular stress test abnormal Shortness of breath Coronary artery disease involving [place] coronary artery of [place] heart with other form of angina pectoris Cardiovascular stress test abnormal Shortness of breath documented in this encounter Care Teams Cadd Manager Relationship Specialty Start Date End Date Jose Danielson MD [address] [facility] [place] [address] PCP - General 10/14/22 documented as of this encounter
--- OUTSIDE RECORDS SUMMARY | 2024-12-26 08:54 | XMS_ITS | Clinical Summary ---
Author Organization [facility] Address [address] [place] [address] Care Team Providers Care Linux Admin Name Role Phone Jose Danielson MD Primary Care Provider [phone] Allergies Active Allergy Reactions Criticality Noted Date [...] mg SL tabletIndications:C oronary artery disease involving sycuan coronary artery of sycuan heart without angina pectoris DISSOLVE 1 TABLET [...] 12 hr tabletIndications:C oronary artery disease involving sycuan coronary artery of sycuan heart with other form of angina pectoris Take 1 tablet (500 mg) by mouth two times daily. Do not crush, chew, or split. 180 tablet 3 12/25/19 25 Active isosorbide mononitrate ER (Imdur) 60 mg 24 hr tabletIndications:C oronary artery disease involving sycuan coronary artery of sycuan heart with other form of angina pectoris Take 2 tablets (120 mg) by mouth once daily as directed. Do not crush or chew. 180 tablet 3 12/25/19 25 Active isosorbide mononitrate ER (Imdur) 60 mg 24 hr tabletIndications:C hest pain, unspecified type,Coronary artery disease involving sycuan coronary artery of sycuan heart without angina pectoris TAKE 2 TABLETS BY MOUTH IN THE MORNING DO NOT CRUSH OR CHEW 180 tablet 3 05/29/20 24 2024 Disconti nued(Reo rder) ranolazine (Ranexa) 500 mg 12 hr tabletIndications:C oronary artery disease involving sycuan coronary artery of sycuan heart without angina pectoris,Stable angina pectoris due to arteriosclerosis of coronary artery TAKE 1 TABLET BY MOUTH IN THE MORNING AND AT BEDTIME . 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; History of myocardial infarction; Stage 3b chronic kidney disease (CMS/HCC) from Last 3 Months Family History Medical History Relation Name Comments No Known Problems Father No Known Problems Mother Relation Name Status Comments Father Mother Social History Tobacco Use Types Packs/Day Years Used Date Smoking Tobacco: Never Smokeless Tobacco: Never Tobacco Cessation:Counseling Given: Not Answered Alcohol Use Standard Drinks/Week Comments Yes 0 (1 standard drink = 0.6 oz pur e alcohol) socially [place] Safety & Environment Answer Date Rec orded [...] Description 12/27/2024 10:30 AM EDT Hospital Encounter [facility] Heart and Vascular Center Vascular Lab [address] [place] [address] Gato Huynh MD [address] [facility] [address] [place] [address] Coronary artery disease involving sycuan coronary artery of sycuan heart with other form of angina pectoris; Cardiovascular stress test abnormal; Shortness of breath 12/27/2024 12:30 PM EDT - 12/27/2024 1:30 PM EDT Surgery [facility] Lab [address] [place] [address] Gato Huynh MD [address] [facility] [address] [place] [address] Coronary angiography Health Maintenance Due Date Last Done Comments Diabetes: Hemoglobin A1C 1940 Medicare Annual Wellness (AWV) 1940 Diabetes: Retinopathy Screening 1952 Depression Screening 1954 Diabetes: Urine Protein Screening 1961 Fall Risk Screening 2007 COVID-19 Vaccine ( season) 2024 03/06/2024, 03/24/2023, 03/29/2022, Additional history exists Influenza Vaccine (#1) 2025 , 03/30/2021, 04/18/2020, Additional history exists Adult Tetanus 05/02/2033 05/02/2023 Zoster Vaccines Completed 02/05/2020, 12/06/2019 Pneumococcal Vaccine: 50+ Years Completed 05/02/2023, 04/05/2017 HIB Vaccines Aged Out No longer eligi [...] topic Insurance [employer] MEDICARE Care Teams Linux Admin Relationship Specialty Start Date End Date Jose Danielson MD [address] [facility] [place] [address] PCP - General 10/14/22
--- OUTSIDE RECORDS SUMMARY | 2024-12-26 08:54 | XMS_ITS | Encounter Summary ---
Author Organization [facility] Address [address] [place] [address] Care Team Providers Care Pipelines Superintendent Name Role Phone Jose Danielson MD Primary Care Provider [phone] Reason for Visit * Reason Comments Med Refill Encounter Details Date Type Department Care Team (Late st Contact Info) Description 03/02/2023 Refill [facility] Cardiology [address] [address] Riya Gage CNP [address] [place] [address] Coronary artery disease involving [place] coronary artery of [place] heart without angina pectoris Social History Tobacco [...] Description 12/27/2024 10:30 AM EDT Hospital Encounter [facility] Heart and [facility] Vascular Lab [address] [place] [address] Gato Huynh MD [address] [facility] [place] [address] Coronary artery disease involving [place] coronary artery of [place] heart with other form of angina pectoris; Cardiovascular stress test abnormal; Shortness of breath 12/27/2024 12:30 PM EDT - 12/27/2024 1:30 PM EDT Surgery [facility] Heart and [facility] Center Vascular Lab [address] [place] [address] Gato Huynh MD [address] [facility] [address] [facility] [place] [address] Coronary angiography documented as of this encounter Visit Diagnoses Diagnosis Coronary artery disease involving [place] coronary artery of [place] heart without angina pectoris Coronary artery disease involving [place] coronary artery of [place] heart with other form of angina pectoris Cardiovascular stress test abnormal Shortness of breath Coronary artery disease involving [place] coronary artery of [place] heart with other form of angina pectoris Cardiovascular stress test abnormal Shortness of breath documented in this encounter Care Teams Pipelines Superintendent Relationship Specialty Start Date End Date Jose Danielson MD [address] [facility] [address] [address] PCP - General 10/14/22 documented as of this encounter
--- NOTE | 2024-12-26 08:58 | CA_ITS ---
Patient Name: GLADYS SMYTH MR#: [id number] : 1940 Exam Date: 12/26/2024 Ordering Doctor: DR TRAY ALFARO . ECHOCARDIOGRAM REPORT PROCEDURE: CA ECHO DOPPLER COMPLETE INDICATIONS: Coronary artery disease COMPARISON: None. DESCRIPTION: COMPLETE ECHOCARDIOGRAM Real-time transthoracic echocardiography with 2D, M-mode, spectral and color flow Doppler performed. QUALITY: Technical quality was adequate. LEFT VENTRICLE: Normal chamber size. Borderline left ventricular hypertrophy. Global left ventricular systolic function is normal without wall motion abnormalities. Calculated left ventricular ejection fraction is 63%. LV EF: DIASTOLIC: Indeterminate diastolic function ATRIAL SEPTUM: Visually appears intact LEFT ATRIUM: Normal chamber size. RIGHT ATRIUM: Normal chamber size. RIGHT VENTRICLE: Normal chamber size. Normal right ventricular systolic function. TRICUSPID VALVE: Normal mobility and thickness. No stenosis with trivial regurgitation. No evidence of pulmonary hypertension.RVSP 9mmHg. MITRAL VALVE: Normal mobility and thickness. No evidence of mitral valve stenosis. There is no mitral annular calcification. No mitral regurgitation. AORTIC VALVE: Normal trileaflet appearance. Thickened aortic valve. Normal leaflet mobility. No evidence of aortic valve stenosis. No aortic regurgitation. AORTIC ROOT: Normal diameter and appearance. PULMONIC VALVE: Normal thickness and mobility. No stenosis. Trivial regurgitation. PERICARDIUM: No evidence of pericardial effusion. IVC: Collapes with inspirations. Normal size. PLEURA: CONCLUSION: Normal left ventricular systolic function without wall motion abnormalities, ejection fraction 63% Indeterminate left ventricular diastolic function Normal right ventricle size and systolic function Normal right-sided pressures No significant valvular abnormalities Adult Echocardiography Procedure Report Left Ventricle LVEDD (3.7 - 5.6 cm): 4.98 cm LVESD (2.2 - 4.0 cm): 3.54 cm LVIVS thickness (0.6 - 1.2 cm): 1.19 cm LVPW thickness (0.5 - 1.0 cm): 1.05 cm e': 0.06 m/s E - e': 9.82 LVOT Max Gradient: 2.47 mm[Hg] LVOT Area (cm2): 0.79 m/s Peak Velocity (LVOT): 0.79 m/s Mean Velocity (LVOT): 0.52 m/s LVOT Diameter 1.99 cm Left Ventricular Ejection Fraction: 62.54 % Left Atrium LA Volume Index (2D A2C): 35.78 ml/m2 Left Atrium Systolic Dimension: 3.95 cm Mitral Valve MV E to A Ratio: 0.92 Mitral Valve A-Wave Peak Velocity: 0.62 m/s Mitral Valve E-Wave Peak Velocity: 0.57 m/s Right Ventricle RV Internal Diastolic Dimension: 3.32 cm Aorta AO Root Diam: 3.36 cm Ascending Ao Diam: 3.00 cm Aortic Valve AoV Area (Peak Thiago): 2.11 cm2, 2.11 cm2 AoV Area (VTI): 2.41 cm2, 2.41 cm2 Peak Velocity(Antegrade Flow): 1.15 m/s Peak Gradient(Antegrade Flow): 5.33 mm[Hg] Mean Velocity(Antegrade Flow): 0.73 m/s Mean Gradient(Antegrade Flow): 2.52 mm[Hg] Velocity Time Integral: 23.28 cm Tricuspid Valve Peak Velocity (Regurgitant Flow): 1.20 m/s Pulmonic Valve Peak Velocity: 1.05 m/s Peak Gradient: 4.38 mm[Hg], 4.51 mm[Hg] Right Atrium Right Atrium Systolic Pressure: 41.10 ml, 41.10 ml Dictated by: Mundo Lee MD on 12/26/2024 at 18:09 Approved by: Mundo Lee MD on 12/26/2024 at 18:21
== END 2024-12-26 08:52 | disposition home or self-care (01) ==
LOC: CARD 08:52
PROVIDERS: PCP Family Medicine; Visit Provider Family Medicine
DX: I25.10 Atherosclerotic heart disease of native coronary artery without angina pectoris (principal)
CPT/HCPCS: 93306

== ENCOUNTER 2025-01-02 08:40 | Outpatient (OUT) | payer MEDICARE, SELFPAY ==
--- OUTSIDE RECORDS SUMMARY | 2024-12-24 09:00 | XMS_ITS | Encounter Summary ---
Author Organization [facility] Address [address] [place] [address] Care Team Providers Care Senior Media Director Name Role Phone Jose Danielson MD Primary Care Provider [phone] Encounter Details Date Type Department Care Team (Late st Contact Info) Description 12/24/2024 9:00 AM EDT Office Visit [facility] Heart at [facility] [address] [place] [address] Gato Huynh MD [address] [facility] [address] [facility] [place] [phone] Coronary artery disease involving [place] coronary artery of [place] heart with other form of angina pectoris [...] from the original note were not included. [place] [facility] Subjective Victorino Ricketts is a [...] March of 2013, and then developed acute [place] related to ISR of the LAD stent on 09/28/2016 and underwent emergent PromusDES stent to the LAD at [facility], was on Brilinta but currently on [...] kg (279 lb) SpO2 93% BMI 41.20 kg/m?? Smoking Status Never BSA 2.49 m?? Physical Exam Constitutional: Appearance: He is well-developed. [...] for this visit: Coronary artery disease involving [place] coronary artery of [place] heart with other form of angina pectoris - ranolazine (Ranexa) 500 mg 12 hr tablet; Take 1 tablet (500 mg) by mouth two times daily. Do not crush, chew, or split. - isosorbide mononitrate ER (Imdur) 60 mg 24 hr tablet; Take 2 tablets (120 mg) by mouth once dailyas directed. Do not crush or chew. - Case Request Customer Care Assistant: Coronary angiography, Right heart cath Cardiovascular stress test abnormal - Case Request Customer Care Assistant: Coronary angiography, Right heart cath Shortness of breath - Case Request Customer Care Assistant: Coronary angiography, Right heart cath Mixed hyperlipidemia Essential hypertension Status post insertion of drug eluting coronary artery stent History of myocardial infarction Stage 3b chronic kidney disease ([facility]) Victorino is an 84-year-old man with history [...] Care Team (Late st Contact Info) Description 01/28/2025 11:45 AM EDT Follow-Up [facility] at [address] [address] Gato Huynh MD [address] [facility] [address] [facility] [place] [address] documented as of this encounter Visit Diagnoses Diagnosis Coronary artery disease involving [place] coronary artery of [place] heart with other form of angina pectoris- Primary Cardiovascular stress test abnormal Shortness of breath Mixed hyperlipidemia Essential hypertension Unspecified essential hypertension Status post insertion of drug eluting coronary artery stent History of myocardial infarction Stage 3b chronic kidney disease (CMS/HCC) documented in this encounter Care Teams Senior Media Director Relationship Specialty Start Date End Date Jose Danielson MD [address] [facility] [place] [phone] PCP - General 10/14/22 documented as of this encounter
--- OUTSIDE RECORDS SUMMARY | 2024-12-25 14:54 | XMS_ITS ---
Author Organization [facility] in [place] Address [address] [place] [address] Care Team Providers Care Consulting Solution Director Name Role Phone Jose Danielson Primary Care Provider REASON FOR VISIT US results Problems Problem Type SNOMED Code ICD Code Onset Dates Problem Status W/U Status Risk Notes Problem Kidney stone (N20.0) Active confirmed Encounters Encounter Location Date Provider Diagnosis [facility] [address] [place] [address] 12/25/2024 Jose Dustinnissa Plan Of Treatment Next Appt Details Provider Name:Jay Doty, 04/23/2025 09:00:00 AM, [address] [place], [address], Progress Notes * Victorino SMYTHDOB:[birth year] (84 yo M)Acc No.[id number]:12/25/2024 Patient: Victorino GUEVARA :1940 A ge:84 Y S ex:Male Address:[address] [place] [address], [phone] * true * Date: Generated for Mini javier/Eve/eTransmitting on: 0 01/02/2025 08:44 AM EDT
--- OUTSIDE RECORDS SUMMARY | 2024-12-26 15:06 | XMS_ITS ---
Author Organization [facility] in [place] Address [address] [place] [address] Care Team Providers Care Travel Coordinator Name Role Phone Jose Danielson Primary Care Provider [phone] REASON FOR VISIT ECHO results Encounters Encounter Location Date Provider Diagnosis [facility] [address] [facility] [place] [address] 12/26/2024 Jose Danielson Plan Of Treatment Next Appt Details Provider Name:Jay Doty, 04/23/2025 09:00:00 AM, [address] [place], [address], Progress Notes * SMYTHAristides DUENASesDOB:[birth year] (84 yo M)Acc No.[id number]:12/26/2024 Patient: Aristides GUEVARAard :1940 A ge:84 Y S ex:Male Address:[address] [place] [address], [phone] * true * Date: Generated for Printi concepcion/Fajemmag/eTransmitting on: 0 01/02/2025 08:44 AM EDT
--- OUTSIDE RECORDS SUMMARY | 2024-12-27 06:37 | XMS_ITS | Encounter Summary ---
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 Procedures [place] OFFICE/OUTPATIENT NEW [facility] MDM 60 MINUTES Gato Huynh MD [address] [place] [address] Phone: tel: fax: [facility] Cardiac Rehabilitation [address] [place] [address] [place] [address] Phone: tel:[phone] fax:[phone] Referral ID Status Reason Start Date Expiration Date Visits Requested Visits Authorized [id number] Pending Review Specialty Services Required 12/27/2024 12/27/2025 1 1 * (Routine) - Pending Review Specialty Diagnoses / Procedures Referred By Contac t Referred To Contact Procedures ECG 12 lead Gato Huynh MD [address] [place] [address] Phone: tel: fax: Referral ID Status Reason Start Date Expiration Date V isits Requested Visits Authorized [id number] Pending Review 12/27/2024 12/27/2025 1 1 Reason for Visit * Auth/Cert (Routine) Specialty Diagnoses / Procedures Referred By Contac t Referred To Contact Diagnoses 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 Cardiovascular stress test abnormal Shortness of breath 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 [I25.118] Cardiovascular stress test abnormal [R94.39] Shortness of breath [R06.02] Procedures [place] OFFICE/OUTPT VISIT,PROCEDURE ONLY Coronary angiography Right heart cath Gato Huynh MD [address] [place] [address] Phone: tel: fax: [facility] [address] [place] [address] Phone: tel: fax: Referral ID Status Reason Start Date Expiration Date Visits Re quested Visits Authorized [id number] 1 1 Encounter Details Date Type Department Care Team (Late st Contact Info) Description 12/27/2024 6:37 AM EDT - 12/27/2024 2:57 PM EDT Hospital Encounter [facility] Heart [facility] [address] [place] [address] Gato Huynh MD [address] [place] [address] 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 * Coronary Angiogram Care After (Swazi) * Moderate Conscious Sedation Adult Care After (Swazi) documented in this encounter Medications at Time of Discharge albuterol 90 mcg/actuation inhaler Ventolin HFA 90 mcg/actuation aerosol inhaler inhale 2 puffs by mouth and INTO THE LUNGS every 4 hours if needed for shortness of breath aspirin 81 mg EC tablet in the morning. atorvastatin (Lipitor) 80 mg tabletIndications :Coronary artery disease due to lipid rich plaque TAKE 1 TABLET BY MOUTH AT BEDTIME 90 tablet 3 09/03/2024 cholecalciferol (Vitamin D-3) 125 MCG (5000 UT) capsule 1 capsule. 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 5 tablet 12/27/2024 glimepiride (Amaryl) 4 mg tablet Take 2 mg by mouth 2 times daily. 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 Do not crush or chew. 180 tablet 3 12/24/2024 levothyroxine (Synthroid, Levoxyl) 50 mcg tablet levothyroxine 50 mcg tablet take 1 tablet by mouth once daily liothyronine (Cytomel) 5 mcg tablet Take 5 mcg by mouth in the morning. 09/25/2022 lisinopril 20 mg tabletIndications :Essential hypertension TAKE 1 TABLET BY MOUTH DAILY 90 tablet 3 09/03/2024 magnesium oxide (Mag-Ox) 400 mg tablet 400 mg in the morning. metoprolol tartrate (Lopressor) 50 mg tabletIndications :Essential hypertension TAKE 1 TABLET BY MOUTH TWICE DAILY 180 tablet 3 06/08/2024 nitroglycerin (Nitrostat) 0.4 mg SL tabletIndications :Coronary artery disease involving the [place] coronary artery of the [place] heart without angina pectoris DISSOLVE 1 TABLET UNDER THE TONGUE EVERY 5 MINUTES NEEDED FOR CHEST PAIN. MAX OF 3 TABLETS IN 15 MINUTES. CALL 911 IF PAIN PERSISTS. 100 tablet 3 06/08/2024 pioglitazone (Actos) 15 mg tablet Take 15 mg by mouth in the morning. 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 Do not crush, chew, or split. 60 tablet 12/27/2024 01/27/20 25 SITagliptin phosphate (Januvia) 100 mg tablet Januvia 100 mg tablet tiotropium (Spiriva Respimat) 2.5 mcg/actuation inhaler Spiriva Respimat 2.5 mcg/actuation solution for inhalation documented as of this encounter H&P Notes * Jakob Mcfarland MD - 12/27/2024 7:51 AM EDT H&P reviewed. The patient was examined and there are no changes to the H&P. Consent for blood products obtained. Risks, benefits, and alternatives to procedure discussed with patient in detail who expressed understanding and agreed to proceed. Risks discussed included progression or renal disease, renal failure, bleed, heart attack, stroke, and . Cosigned by Gato Huynh MD at 12/27/2024 11:27 AM EDT Source Note - Gato Huynh MD - 12/24/2024 9:00 AM EDT Images from the original note were not included. ID Cardiology - [facility] Theresa Ricketts is a 84 y.o. 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 Do not crush, chew, or split. - isosorbide mononitrate ER (Imdur) 60 mg 24 hr tablet; Take 2 tablets (120 mg) by mouth once dailyas directed. Do not crush or chew. - Case Request Harness Cleaner: Coronary angiography, Right heart cath Cardiovascular stress test abnormal - Case Request Harness Cleaner: Coronary angiography, Right heart cath Shortness of breath - Case Request Harness Cleaner: Coronary angiography, Right heart cath Mixed hyperlipidemia Essential hypertension Status post insertion of drug eluting coronary artery stent History of myocardial infarction Stage 3b chronic kidney disease (CMS/HCC) Victorino is an 84-year-old man with history [...] injury. he understands and agrees. I will proceedfrom the left radial artery and right internal jugular vein access site. We will bring him earlier that day for precath hydration. He follows with Dr Timmons from nephrology. He also follows with pulmonary. No follow-ups on file. Gato Huynh MD documented in this encounter Nursing Notes * Jeanne Meneses RN - 12/27/2024 2:51 PM EDT RN educated pt on discharge instructions. RN encouraged pt to voice any questions or concerns. Pt verbalizes no questions or concerns at this time. Pt was wheeled off unit with all belongings. documented in this encounter Miscellaneous Notes * Pre-Sedation Documentation - Jakob Mcfarland MD - 12/27/2024 7:53 AM EDT Patient: Victorino Ricketts Pre-sedation Evaluation: Conscious, moderate sedation for coronary angiography. History of Present Illness: 84 year old male with known CAD (JOSE RAMON to LAD in 2012 c/b ISR with repeatstenting to LAD in 2017). He is presenting for planned angiography due to an abnormal stress in November 2024 which revealed concern for an inferior defect. Does have a history of CKD. On evaluation in pre-proc he denied acute complaint, including no chest pain, palpitations, nausea, dyspnea, diaphoresis,. Medical History[1] Principle problems: Patient Active Problem List Diagnosis Date Noted Pre-operative cardiovascular examination 11/17/2022 Acute renal failure 05/21/2024 Anticoagulated 05/21/2024 Bilateral ureteral obstruction 05/21/2024 BPH associated with nocturia 05/21/2024 Chronic obstructive pulmonary disease (COPD) ([facility]) 05/21/2024 Diabetes ([facility]) 05/21/2024 Erectile dysfunction 05/21/2024 H/O: hypothyroidism 05/21/2024 Hematuria 05/21/2024 High prostate specific antigen (PSA) 05/21/2024 Hydronephrosis with ureteral calculus 05/21/2024 Hyperkalemia 05/21/2024 Hyperplastic colon polyp 05/21/2024 Kidney stone 05/21/2024 Left renal atrophy 05/21/2024 Lung nodule 05/21/2024 Metabolic acidosis 05/21/2024 Myocardial infarct ([facility]) 05/21/2024 Occult blood in stools 05/21/2024 Postprandial diarrhea 05/21/2024 Prostate cancer ([facility]) 05/21/2024 Prostatic enlargement 05/21/2024 Rheumatoid arthritis ([facility]) 05/21/2024 Right distal ureteral calculus 05/21/2024 Secondary hyperparathyroidism 05/21/2024 CKD (chronic kidney disease) stage 3, GFR 30-59 ml/min ([facility]) 05/21/2024 Clot retention of urine 05/21/2024 Carpal tunnel syndrome 09/12/2023 Coronary atherosclerosis 05/28/2013 Essential hypertension 05/28/2013 Benign prostatic hyperplasia 05/16/2013 Chest pain 05/16/2013 Hyperlipidemia 05/16/2013 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[facility]) 05/16/2013 Type 2 diabetes mellitus without complication ([facility]) 05/16/2013 Coronary artery disease 12/24/2024 Cardiovascular stress test abnormal 12/24/2024 Shortness of breath 12/24/2024 Allergies: Allergies[2] 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 Recent sedation/surgery (24 hours) No Review of Systems: Please check all that apply: Cardiac Disease and Obesity test completed prior to procedure on any menstruating female: NPO guidelines met: Yes Physical Exam Airway Mallampati: IV TM distance: >3 FB Cardiovascular Rate: normal (-) murmur Dental Pulmonary Breath sounds clear to auscultation Plan ASA 3 Moderate Consent for blood products obtained. Risks, benefits, and alternatives to procedure discussed with patient in detail who expressed understanding and agreed to proceed. [1] Past Medical History: Diagnosis Date Abnormal ECG Chronic kidney disease Coronary artery disease Diabetes mellitus (CMS/HCC) Hyperlipidemia Hypertension Myocardial infarction ([facility]) [2] Allergies Allergen Reactions Ciprofloxacin Itching Penicillins Other [3] Medications Prior to Admission Medication Sig Dispense Refill Last Dose/Taking albuterol 90 mcg/actuation inhaler Ventolin HFA 90 mcg/actuation aerosol inhaler inhale 2 puffs by mouth and INTO THE LUNGS every 4 hours if needed for shortness of breath 12/26/2024Morning aspirin 81 mg EC tablet in the morning. 12/27/2024 Morning atorvastatin (Lipitor) 80 mg tablet TAKE 1 TABLET BY MOUTH AT BEDTIME 90 tablet 3 12/26/2024 Evening cholecalciferol (Vitamin D-3) 125 MCG (5000 UT) capsule 1 capsule. 12/26/2024 Morning glimepiride (Amaryl) 4 mg tablet Take 2 mg by mouth 2 times daily. 12/26/2024 Morning isosorbide mononitrate ER (Imdur) 60 mg 24 hr tablet Take 2 tablets (120 mg) by mouth once daily asdirected. Do not crush or chew. 180 tablet 3 12/26/2024 Morning levothyroxine (Synthroid, Levoxyl) 50 mcg tablet levothyroxine 50 mcg tablet take 1 tablet by mouth once daily 12/26/2024 Morning liothyronine (Cytomel) 5 mcg tablet Take 5 mcg by mouth in the morning. 12/26/2024 Morning lisinopril 20 mg tablet TAKE 1 TABLET BY MOUTH DAILY 90 tablet 3 12/26/2024 Morning magnesium oxide (Mag-Ox) 400 mg tablet 400 mg in the morning. 12/26/2024 Evening metoprolol tartrate (Lopressor) 50 mg tablet TAKE 1 TABLET BY MOUTH TWICE DAILY 180 tablet 3 12/26/2024 Morning nitroglycerin (Nitrostat) 0.4 mg SL tablet DISSOLVE 1 TABLET UNDER THE TONGUE EVERY 5 MINUTES NEEDED FOR CHEST PAIN. MAX OF 3 TABLETS IN 15 MINUTES. CALL 911 IF PAIN PERSISTS. 100 tablet 3 Past Week pioglitazone (Actos) 15 mg tablet Take 15 mg by mouth in the morning. 12/26/2024 Morning ranolazine (Ranexa) 500 mg 12 hr tablet Take 1 tablet (500 mg) by mouth two times daily. Do not crush, chew, or split. 180 tablet 3 12/26/2024 Morning SITagliptin phosphate (Januvia) 100 mg tablet Januvia 100 mg tablet 12/26/2024 Morning tiotropium (Spiriva Respimat) 2.5 mcg/actuation inhaler Spiriva Respimat 2.5 mcg/actuation solutionfor inhalation 12/27/2024 Morning [4] Current Facility-Administered Medications Medication Dose Route Frequency Provider Last Rate Last Admin sodium chloride 0.9 % infusion 150 mL/hr intravenous Continuous Gato Huynh MD 150 mL/hr at 12/27/24 0740 150 mL/hr at 12/27/24 0740 Cosigned by Gato Huynh MD at 12/27/2024 11:27 AM EDT documented in this encounter Plan of Treatment Upcoming Encounters Date Type Department Care Team (Late st Contact Info) Description 01/28/2025 11:45 AM EDT Follow-Up [facility] [address] [place] [address] Gato Huynh MD [address] 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 Expected: 12/27/2024 (Approximate), Expires: 06/29/2025 documented as of this encounter Procedures Procedure Name Priority Date/Time Associated Diagnosis Comments RIGHT HEART CATH Routine 12/27/2024 12:1 1 PM EDT 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 Cardiovascular stress test abnormal Shortness of breath CORONARY ANGIOGRAPHY Routine 12/27/2024 12:11 PM EDT 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 Indications: Victorino Ricketts is a 84 y.o. male with prior history of coronary disease and status post myocardial infarction and stenting procedure in the past. He was evaluated recently in cardiology clinic because of symptoms of chest pain, suggestive of unstable angina, shortness of breath, as well as a stress test showing inferior ischemia. He was referred for cardiac catheterization. He has chronic kidney disease and risks and benefits of the procedure were discussed with the patient before the procedure and he agreed to it. Assistants: Cardiovascular Fellow Dr Jakob Mcfarland. Procedure Performed: Bilateral selective coronary angiogram. Right heart catheterization. Access into the right internal jugular vein under ultrasound guidance. Access into the left radial artery under ultrasound guidance. Methods: Procedure was explained to the patient with risks and benefits; he signed informed consent. he was brought to the labor delivery rn in a fasting state. The right neck area was prepped and draped in usual fashion. Micropuncture technique was used for access under ultrasound guidance into the right internal jugular vein. A 6-Bulgarian x 11 cm sheath was placed. A 6-Bulgarian Skelton catheter was used for right heart catheterization and measurement of pressures and calculation of cardiac output using the estimated Juan Ramon method. Skelton catheter was removed. The left wrist area was prepped and draped in usual fashion. Micropuncture technique was used for access in the radial artery. A 6-Bulgarian x 11 cm sheath was placed. Verapamil was given through the sheath, and heparin was administered intravenously. Bilateral selective coronary angiography was then performed using 6-Bulgarian JL3.5 and JR4 diagnostic catheters. Catheters were removed. Hemostasis was achieved by TR band in the radial artery manual compression in the internal jugular vein. he tolerated the procedure well and was transferred back to the cardiovascular recovery area. Hemodynamic Data: RA: 13 RV: 42/11, 16 PA: 40/18 (27) PCWP: 17 CO: 6.76 CI: 2.84 O2 Sat: PA sat: 69%, AO sat: 93% AO: 169/72 (111) TP PVR: 1.5 Wood units SVR: 1159 Metric units Coronary angiography: This is a right-dominant circulation. Left Main: This arises from the left coronary cusp. It bifurcates into left anterior descending and circumflex vessels. This has mild luminal irregularities but no obstructive lesions. Left anterior descending: There are previously placed stents in the proximal segment. The stents are patent. The LAD has otherwise mild disease. Circumflex: This is a non-dominant vessel. This has mild luminal irregularities but no obstructive lesions. Right coronary artery: This arises from the right coronary cusp. It is a dominant vessel. The mid segment has mild 40% stenosis but otherwise the RCA and branches are free of disease. Impression/Findings: Patent proximal LAD stents with mild disease in the LAD. 40% mid RCA stenosis. Minimal disease in the left main and circumflex. Mild to moderate elevation of left filling pressures. Moderate elevation of right filling pressures. Mild to moderate pulmonary hypertension. Normal cardiac output and cardiac index. Uncontrolled systemic hypertension. 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 Plan: Medical therapy for coronary artery disease. Aspirin 81 mg daily for life. Statin therapy for life. Maximize antianginal therapy. Ranexa will be increased to 1000 mg twice daily. Guideline directed medical therapy for heart failure. Lasix 40 mg daily will be added. Risk factor control. Check BMP in 5 to 7 days. Follow up in Cardiology Clinic. At this time we will manage coronary artery disease medically. Should he continue to have anginal symptoms after control of his heart failure and on maximal medical therapy, consideration can be given to further evaluation of the RCA by IFR assessment and stenting as needed. This was deferred during this procedure due to the finding of elevated filling pressures and to limit the amount of contrast material given his chronic kidney disease. 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 [I25.118]Cardiovascular stress test abnormal [R94.39]Shortness of breath [R06.02] us Gato Huynh MD CV CARDIAC CATH PROCEDURES F inal Result * (ABNORMAL) POC Hb02% (12/27/2024 11:50 AM EDT) Pathologist [facility] [id number]% 69.3(A) 90 - 95 % QC Pass/Fail Passed QC LOT # [id number] QC Expiration Date 73,126 SAMPLESITE nl Blood Venous blood specimen / Unknown 12/27/2024 11:50 AM EDT Narrative Ramon Mishra MT - 12/31/2024 7:50 AM EDT Oper [id number] Gato Huynh MD POINT OF CARE TEST ENTER/ZAY T ORDERABLES Final Result * ECG 12 lead (12/27/2024 8:28 AM EDT) Pathologist [facility] Ventricular Rate 71 BPM GE MUSE Atrial Rate 71 BPM GE MUSE IL Interval 206 ms GE MUSE QRS DURATION 96 ms GE MUSE QT Interval 390 ms GE MUSE QTC CALCULATION(BAZE TT) 423 ms GE MUSE P Penrose 26 degrees GE MUSE R-Penrose -4 degrees GE MUSE T Wave Penrose 25 degrees GE MUSE 12/27/2024 8:14 AM EDT 12/27/2024 10:29 AM EDT Impressions GE MUSE - 12/27/2024 10:29 AM EDT Normal sinus rhythm Normal ECG When compared with ECG of 26-APR-2013 10:20, T wave amplitude has decreased in Anterior leads Confirmed by Link HUTTON SAMER J. ([id number]) on 12/27/2024 10:29:01 AM Narrative Procedure Note Kady Hutton MD - 12/27/2024 IMPRESSION: Normal sinus rhythm Normal ECG When compared with ECG of 26-APR-2013 10:20, T wave amplitude has decreased in Anterior leads Confirmed by Link HUTTON SAMER J. 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 Cardiovascular stress test abnormal Shortness of breath documented in this encounter Admitting Diagnoses Diagnosis Coronary artery disease Coronary atherosclerosis of unspecified type of vessel, the [place] or graft Cardiovascular stress test abnormal Shortness of breath documented in this encounter Administered Medications Inactive Administered Medications - up to 3 most recent administrations Medication Order MAR Action Action Date Dose Rate Site sodium chloride 0.9 % infusion 150 mL/hr, intravenous, Continuous, Starting on Ashly 12/27/24 at 0700, For 3 hours, Preprocedure, Begin infusion at ordered rate, then reduce to 10 mL/hr as directed. New Bag 12/27/2024 7:40 AM EDT 150 mL/hr 150 mL/hr documented in this encounter Active and Recently Administered Medications Times are shown in EDT. Continuous Medication Order 12/25/2024 12/26/2024 12/27/2024 sodium chloride 0.9 % infusion 150 mL/hr, intravenous, Continuous, Starting on Ashly 12/27/24 at 0700, For 3 hours, Preprocedure, Begin infusion at ordered rate, then reduce to 10 mL/hr as directed. 0740 (New Bag - Prov ider: Jennifer Tarango RN)1039 (Due: Order Ending - Provider: Jennifer Tarango RN - Comment: [Order ends at this time. Document the following action when infusion is complete: Stopped]) PRN Medication Order 12/25/2024 12/26/2024 12/27/2024 fentaNYL (Sublimaze) injection (CANCELED) As needed, Starting on Ashly 12/27/24 at 1131, Intraprocedure 1131 (Given - Provid er: Bren Boyd RN) heparin (porcine) injection (CANCELED) As needed, Starting on Ashly 12/27/24 at 1156, Intraprocedure 1156 (Given - Provid er: Bren Boyd RN) heparin irrigation 2 units/mL in NS (CANCELED) As needed, Starting on Ashly 12/27/24 at 1120, Intraprocedure 1120 (Given - Provid er: Gato Huynh MD) iodixanol (VISIPaque) 320 mg iodine/mL injection (CANCELED) As needed, Starting on Ashly 12/27/24 at 1211, Intraprocedure 1211 (Given - Provid er: Gato Huynh MD) lidocaine (PF) (Xylocaine) 10 mg/mL (1 %) injection (CANCELED) As needed, Starting on Ashly 12/27/24 at 1129, Intraprocedure 1129 (Given - Provid er: Gato Huynh MD) midazolam (Versed) injection (CANCELED) As needed, Starting on Ashly 12/27/24 at 1131, Intraprocedure 1131 (Given - Provid er: Bren Boyd RN) verapamil (Isoptin) injection (CANCELED) As needed, Starting on Ashly 12/27/24 at 1155, Intraprocedure 1155 (Given - Provid er: Gato Huynh MD) documented in this encounter Care Teams Hat Cutter Relationship Specialty Start Date End Date Jose Danielson MD [address] [id number] PCP - General 10/14/22 documented as of this encounter
--- OUTSIDE RECORDS SUMMARY | 2024-12-27 10:30 | XMS_ITS | Encounter Summary ---
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 [I25.118] Cardiovascular stress test abnormal [R94.39] Shortness of breath [R06.02] Procedures [place] OFFICE/OUTPT VISIT,PROCEDURE ONLY Coronary angiography Right heart cath Gato Huynh MD [address] [facility] [place] [address] Phone: tel: fax: [facility] [address] [place] [address] Phone: tel: fax: Referral ID Status Reason Start Date Expiration Date Visits Re quested Visits Authorized [id number] 1 1 Encounter Details Date Type Department Care Team (Late st Contact Info) Description 12/27/2024 10:30 AM EDT - 12/27/2024 11:30 AM EDT Surgery [facility] Heart [facility] [place] [facility] [address] [place] [address] Gato Huynh MD [address] [facility] [place] [address] Coronary angiography Social History Tobacco Use Types Packs/Day Years [...] Sign Reading Time Taken Comments Blood Pressure 174/85 12/27/2024 11:20 AM EDT Pulse 75 12/27/2024 11:20 AM EDT Temperature - - Respiratory Rate 16 12/27/2024 11:20 AM EDT Oxygen Saturation 98% 12/27/2024 11:21 AM EDT Inhaled Oxygen Concentration - - Weight - - Height - - Body Mass Index - - documented in this encounter Discharge Instructions * Attachments The following attachments cannot be sent through Care Everywhere. 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 5 tablet 12/27/2024 glimepiride (Amaryl) 4 mg tablet Take 2 mg by mouth 2 times daily. 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 MAX OF 3 TABLETS IN 15 MINUTES. CALL 911 IF PAIN PERSISTS. 100 tablet 3 06/08/2024 pioglitazone (Actos) 15 mg tablet Take 15 mg by mouth in the morning. 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 Do not crush, chew, or split. - isosorbide mononitrate ER (Imdur) 60 mg 24 hr tablet; Take 2 tablets (120 mg) by mouth once dailyas directed. Do not crush or chew. 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) Victorino is an 84-year-old man with history [...] c/b ISR with repeatstenting to LAD in 2016). He is presenting for planned angiography due [...] nocturia 05/21/2024 Chronic obstructive pulmonary disease (COPD) ([facility]) 05/21/2024 Diabetes ([facility]) 05/21/2024 Erectile dysfunction 05/21/2024 H/O: hypothyroidism 05/21/2024 Hematuria 05/21/2024 High prostate specific antigen (PSA) 05/21/2024 Hydronephrosis with ureteral calculus 05/21/2024 Hyperkalemia 05/21/2024 Hyperplastic colon polyp 05/21/2024 Kidney stone 05/21/2024 Left renal atrophy 05/21/2024 Lung nodule 05/21/2024 Metabolic acidosis 05/21/2024 Myocardial infarct ([facility]/HCC) 05/21/2024 Occult blood in stools 05/21/2024 Postprandial diarrhea 05/21/2024 Prostate cancer ([facility]) 05/21/2024 Prostatic enlargement 05/21/2024 Rheumatoid arthritis ([facility]) 05/21/2024 Right distal ureteral calculus 05/21/2024 Secondary hyperparathyroidism 05/21/2024 CKD (chronic kidney disease) stage 3, GFR 30-59 ml/min ([facility]) 05/21/2024 Clot retention of urine 05/21/2024 Carpal tunnel syndrome 09/12/2023 Coronary atherosclerosis 05/28/2013 Essential hypertension 05/28/2013 Benign prostatic hyperplasia 05/16/2013 Chest pain 05/16/2013 Hyperlipidemia 05/16/2013 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CMS/HCC) 05/16/2013 Type 2 diabetes mellitus without complication ([facility]) 05/16/2013 Coronary artery disease 12/24/2024 Cardiovascular stress test abnormal 12/24/2024 Shortness of breath 12/24/2024 Allergies: Allergies[2] PHILOSOPHY FACULTY/Current Medications: Prescriptions Prior to Admission[3] Current Medications[4] [...] kidney disease Coronary artery disease Diabetes mellitus (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 Expected: 01/01/2025 (Approximate), Expires: 12/27/2025 Scheduled Referrals Name Type Priority Associated Diagnoses Order Schedule Ambulatory referral to Cardiac Rehab Outpatient Referral Routine 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 he was brought to the malthouse laborer in a fasting state. The right neck area was prepped and draped in usual fashion. Micropuncture technique was used for access under ultrasound guidance into the right internal jugular vein. A 6-Prydeinig x 11 cm sheath was placed. A 6-Prydeinig Skelton catheter was used for right heart catheterization and measurement of pressures and calculation of cardiac output using the estimated Juan Ramon method. Skelton catheter was removed. The left wrist area was prepped and draped in usual fashion. Micropuncture technique was used for access in the radial artery. A 6-Prydeinig x 11 cm sheath was placed. Verapamil was given through the sheath, and heparin was administered intravenously. Bilateral selective coronary angiography was then performed using 6-Prydeinig JL3.5 and JR4 diagnostic catheters. 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 [I25.118]Cardiovascular stress test abnormal [R94.39]Shortness of breath [R06.02] Gato Huynh MD CV CARDIAC CATH PROCEDURES F inal Result * (ABNORMAL) POC Hb02% (12/27/2024 11:50 AM EDT) [facility] TJOMAP65% 69.3(A) 90 - 95 % QC Pass/Fail Passed QC LOT # [id number] QC Expiration Date 73,126 SAMPLESITE nl Blood Venous blood specimen / Unknown 12/27/2024 11:50 AM EDT Narrative Ramon Mishra MT - 12/31/2024 7:50 AM EDT Oper 9701 Gato Huynh MD POINT OF CARE TEST ENTER/ZAY T ORDERABLES Final Result * ECG 12 lead (12/27/2024 8:28 AM EDT) [facility] Ventricular Rate 71 BPM GE MUSE Atrial Rate 71 BPM GE MUSE MN Interval 206 ms GE MUSE QRS DURATION 96 ms GE MUSE QT Interval 390 ms GE MUSE QTC CALCULATION(BAZE TT) 423 ms GE MUSE P [place] 26 degrees GE MUSE R-[place] -4 degrees GE MUSE T Wave [place] 25 degrees GE MUSE 12/27/2024 8:14 AM [...] SAMER J. 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 Cardiovascular stress test abnormal Shortness of breath documented in this encounter Admitting Diagnoses Diagnosis Coronary artery disease Coronary atherosclerosis of unspecified type of vessel, kotlik or graft Cardiovascular stress test abnormal Shortness of breath documented in this encounter Administered Medications Inactive Administered Medications - up to 3 most recent administrations Medication Order MAR Action Action Date Dose Rate Site fentaNYL (Sublimaze) injection As needed, Starting on Ashly 12/27/24 at 1131, Intraprocedure Given 12/27/2024 11:31 AM EDT 25 mcg heparin (porcine) injection As needed, Starting on Ashly 12/27/24 at 1156, Intraprocedure Given 12/27/2024 11:56 AM EDT 5,000 Units heparin irrigation 2 units/mL in NS As needed, Starting on Ashly 12/27/24 at 1120, Intraprocedure Given 12/27/2024 11:20 AM EDT 2,000 mL iodixanol (VISIPaque) 320 mg iodine/mL injection As needed, Starting on Ashly 12/27/24 at 1211, Intraprocedure Given 12/27/2024 12:11 PM EDT 20 mL lidocaine (PF) (Xylocaine) 10 mg/mL (1 %) injection As needed, Starting on Ashly 12/27/24 at 1129, Intraprocedure Given 12/27/2024 11:29 AM EDT 20 mL midazolam (Versed) injection As needed, Starting on Ashly 12/27/24 at 1131, Intraprocedure Given 12/27/2024 11:31 AM EDT 1 mg sodium chloride 0.9 % infusion 150 mL/hr, intravenous, Continuous, Starting on Ashly 12/27/24 at 0700, For 3 hours, Preprocedure, Begin infusion at ordered rate, then reduce to 10 mL/hr as directed. New Bag 12/27/2024 7:40 AM EDT 150 mL/hr 150 mL/hr verapamil (Isoptin) injection As needed, Starting on Ashly 12/27/24 at 1155, Intraprocedure Given 12/27/2024 11:55 AM EDT 1.5 mg documented in this encounter Active and Recently [...] MD) documented in this encounter Care Teams Feed Handler Relationship Specialty Start Date End Date Jose Danielson MD [address] [facility] [place] [address] PCP - General 10/14/22 documented as of this encounter
--- OUTSIDE RECORDS SUMMARY | 2024-12-31 12:14 | XMS_ITS ---
Author Organization [facility] [place] Address [address] [place] [address] Care Team Providers Care Senior Safety Management Consultant Name Role Phone Erum Jose Primary Care Provider REASON FOR VISIT rf thyroid meds Medications [...] Active Encounters Encounter Location Date Provider Diagnosis [facility] [address] [place] [address] 12/31/2024 Jose Dustinnissa Plan Of Treatment Medication Medication Name Sig Start Date Stop Date Notes Liothyronine Sodium 5 MCG 1 tablet on an empty stomach Orally Once a day for 90 days Levothyroxine Sodium 50 MCG 1 tablet in the morning on an empty stomach Orally Once a day for 90 days Next Appt Details Provider Name:Jay Doty, 04/23/2025 09:00:00 AM, [address] [place], [address], Progress Notes * Victorino SMYTHDOB:[birth year] (84 yo M)Acc No.[id number]:12/31/2024 Patient: Aristides GUEVARAard :1940 A ge:84 Y S ex:Male Address:[address] [place] [address] [place] [address] * Refills Refill Levothyroxine Sodium Tablet, 50 MCG, Orally, 90 Tablet, 1 tablet in the morning on an empty stomach, Once a day, 90 days, Refills=0 Refill Liothyronine Sodium Tablet, 5 MCG, Orally, 90 Tablet, 1 tablet on an empty stomach, Once a day, 90 days, Refills=0 * true * Date: Generated for Mini javier/Eve/Linneaitting on: 0 01/02/2025 08:44 AM EDT
--- OUTSIDE RECORDS SUMMARY | 2025-01-02 08:44 | XMS_ITS | Encounter Summary ---
Author Organization [facility] Address [address] [place] [address] Care Team Providers Care Veneer Sheet Repairer Name Role Phone Jose Danielson MD Primary Care Provider [phone] Encounter Details Date Type Department Care Team (Latest Contact Info) Description 12/27/2024 Travel Social History Tobacco Use Types Packs/Day Years [...] Description 01/28/2025 11:45 AM EDT Follow-Up [facility] [address] [place] [address] Gato Huynh MD [address] [facility] [address] [facility] [place] [address] documented as of this encounter Visit Diagnoses Not on filedocumented in this encounter Care Teams Veneer Sheet Repairer Relationship Specialty Start Date End Date Jose Danielson MD [address] [facility] [address] PCP - General 10/14/22 documented as of this encounter
--- OUTSIDE RECORDS SUMMARY | 2025-01-02 08:44 | XMS_ITS | Clinical Summary ---
Author Organization [facility] Address [address] [place] [address] Phone Care Team Providers Care Mold Filler Name Role Phone Unavailable Primary Care Provider [...] - 2023-2 5 season) 2024 Influenza Vaccine (#1) 2025 HIB Vaccines Aged Out No longer [...]
--- OUTSIDE RECORDS SUMMARY | 2025-01-02 08:44 | XMS_ITS | Clinical Summary ---
Author Organization [facility] Address [address] [place] [address] Care Team Providers Care Cook Ship Name Role Phone Jose Danielson MD Primary Care Provider [phone] Allergies Active Allergy Reactions Criticality Noted Date [...] 2 mg by mouth 2 times daily. Active levothyroxine (Synthroid, Levoxyl) 50 mcg tablet levothyroxine 50 mcg tablet take 1 tablet by mouth once daily Active liothyronine (Cytomel) 5 mcg tablet Take 5 mcg by mouth in the morning. 023 Active SITagliptin phosphate (Januvia) 100 mg tablet Januvia 100 mg tablet Active pioglitazone (Actos) 15 mg tablet Take 15 mg by mouth in the morning. 023 Active magnesium oxide (Mag-Ox) 400 mg tablet 400 mg in the morning. Active cholecalciferol (Vitamin D-3) 125 MCG (5000 UT) capsule 1 capsule. Active metoprolol tartrate (Lopressor) 50 mg tabletIndications: Essential hypertension TAKE 1 TABLET BY MOUTH TWICE DAILY 180 tablet 3 024 Active nitroglycerin (Nitrostat) 0.4 mg SL tabletIndications: Coronary artery disease involving igiugig coronary artery of igiugig heart without angina pectoris DISSOLVE 1 TABLET UNDER THE TONGUE EVERY 5 MINUTES NEEDED FOR CHEST PAIN. MAX OF 3 TABLETS IN 15 MINUTES. CALL 911 IF PAIN PERSISTS. 100 tablet 3 024 Active atorvastatin (Lipitor) 80 mg tabletIndications: Coronary artery disease due to lipid rich plaque TAKE 1 TABLET BY MOUTH AT BEDTIME 90 tablet 3 025 Active lisinopril 20 mg tabletIndications: Essential hypertension TAKE 1 TABLET BY MOUTH DAILY 90 tablet 3 025 Active isosorbide mononitrate ER (Imdur) 60 mg 24 hr tabletIndications: Coronary artery disease involving igiugig coronary artery of igiugig heart with other form of angina pectoris Take 2 tablets (120 mg) by mouth once daily as directed. Do not crush or chew. 180 tablet 3 025 Active ranolazine (Ranexa) 1,000 mg 12 hr tabletIndications: Coronary artery disease involving igiugig coronary artery of igiugig heart with other form of angina pectoris Take 1 tablet (1,000 mg) by mouth two times daily. Do not crush, chew, or split. 60 tablet 025 2024 Active furosemide (Lasix) 40 mg tabletIndications: Coronary artery disease involving igiugig coronary artery of igiugig heart with other form of angina pectoris Take 1 tablet (40 mg) by mouth in the morning for 5 days. 5 tablet 025 Active isosorbide mononitrate ER (Imdur) 60 mg 24 hr tabletIndications: Chest pain, unspecified type,Coronary artery disease involving igiugig coronary artery of igiugig heart without angina pectoris TAKE 2 TABLETS BY MOUTH IN THE MORNING DO NOT CRUSH OR CHEW 180 tablet 3 024 2024 Discontinued( Reorder) ranolazine (Ranexa) 500 mg 12 hr tabletIndications: Coronary artery disease involving igiugig coronary artery of igiugig heart without angina pectoris,Stable angina pectoris due to arteriosclerosis of coronary artery TAKE 1 TABLET BY MOUTH IN THE MORNING AND AT BEDTIME . DO NOT CRUSH, CHEW, OR SPLIT 180 tablet 3 024 2024 Discontinued( Reorder) ranolazine (Ranexa) 500 mg 12 hr tabletIndications: Coronary artery disease involving igiugig coronary artery of igiugig heart with other form of angina pectoris Take 1 tablet (500 mg) by mouth two times daily. Do not crush, chew, or split. 180 tablet 3 025 2024 Discontinued furosemide (Lasix) 40 mg tabletIndications: Coronary artery disease involving igiugig coronary artery of igiugig heart with other form of angina pectoris Take 1 tablet (40 mg) by mouth in the morning for 5 days. 5 tablet 025 2024 Discontinued ranolazine (Ranexa) 1,000 mg 12 hr tabletIndications: Coronary artery disease involving igiugig coronary artery of igiugig heart with other form of angina pectoris Take 1 tablet (1,000 mg) by mouth two times daily. Do not crush, chew, or split. 60 tablet 3 025 2024 Discontinued Active Problems Problem Noted Date Diagnosed Date [...] Risk 10.1 % 30-day risk of , VT, or cardiac arrest EKG at last visit [...] Encounters Date Type Department Care Team Description 01/02/2025 Telephone [facility] [address] [place] [address] Dixie Salomon MA 12/27/2024 10:30 AM EDT - 12/27/2024 11:30 AM EDT Surgery [facility] Heart formerly [facility] [address] [place] [address] Gato Huynh MD Coronary angiography 12/27/2024 6:37 AM EDT - 12/27/2024 2:57 PM EDT Hospital Encounter [facility] [address] [place] [address] Gato Huynh MD Coronary artery disease involving igiugig coronary artery of igiugig heart with other form of angina pectoris; Cardiovascular stress test abnormal; Shortness of breath Discharge Disposition: Home or Self Care (01) 12/27/2024 Travel 12/24/2024 9:00 AM EDT Office Visit [address] [address] Gato Huynh MD Coronary artery disease involving igiugig coronary artery of igiugig heart with other form of angina pectoris [...] Info) Description 01/28/2025 11:45 AM EDT Follow-Up [facility] [place] [address] [place] [address] Gato Huynh MD [address] [facility] [place] [address] Health Maintenance Due Date Last Done Comments [...] on patient's age to complete this topic Procedures Procedure Name Priority Date/Time Associated Diagnosis Comments RIGHT HEART CATH Routine 12/27/2024 12:1 1 PM EDT Coronary artery disease involving igiugig coronary artery of igiugig heart with other form of angina pectoris Cardiovascular stress test abnormal Shortness of breath CORONARY ANGIOGRAPHY Routine 12/27/2024 12:11 PM EDT Coronary artery disease involving igiugig coronary artery of igiugig heart with other form of angina pectoris Cardiovascular stress test abnormal Shortness of breath POCT HBO2% Routine 12/27/2024 11:50 AM EDT ECG 12-LEAD Routine 12/27/2024 8:28 AM EDT from Last 3 Months Results * CORONARY ANGIOGRAPHY, RIGHT HEART CATH [...] informed consent. he was brought to the clinical laboratory aide in a fasting state. The right neck area was prepped and draped in usual fashion. Micropuncture technique was used for access under ultrasound guidance into the right internal jugular vein. A 6-Puerto Rican x 11 cm sheath was placed. A 6-Pu[place]ican Skelton catheter was used for right heart catheterization and measurement of pressures and calculation of cardiac output using the estimated Juan Ramon method. Skelton catheter was removed. The left wrist area was prepped and draped in usual fashion. Micropuncture technique was used for access in the radial artery. A 6-Puerto Rican x 11 cm sheath was placed. Verapamil was given through the sheath, and heparin was administered intravenously. Bilateral selective coronary angiography was then performed using 6-Puerto Rican JL3.5 and JR4 diagnostic catheters. Catheters were [...] MD Study Details Coronary artery disease involving igiugig coronary artery of igiugig heart with other form of angina pectoris [I25.118]Cardiovascular stress test abnormal [R94.39]Shortness of breath [R06.02] Gato Huynh MD CV CARDIAC CATH PROCEDURES F inal Result * (ABNORMAL) POC Hb02% (12/27/2024 11:50 AM EDT) [facility] [id number]% 69.3(A) 90 - 95 % QC Pass/Fail Passed QC LOT # [id number] QC Expiration Date 73,126 SAMPLESITE nl Blood Venous blood specimen / Unknown 12/27/2024 11:50 AM EDT Ramon Newsome [place] - 12/31/2024 7:50 AM EDT Oper [id number] Gato Huynh MD POINT OF CARE TEST ENTER/ZAY T ORDERABLES Final Result * ECG 12 lead (12/27/2024 8:28 AM EDT) [facility] Ventricular Rate 71 BPM GE MUSE Atrial Rate 71 BPM GE MUSE MD Interval 206 ms GE MUSE QRS DURATION 96 ms GE MUSE QT Interval 390 ms GE MUSE QTC CALCULATION(BAZE TT) 423 ms GE MUSE P Dale 26 degrees GE MUSE R-Dale -4 degrees GE MUSE T Wave Dale 25 degrees GE MUSE 12/27/2024 8:14 AM EDT 12/27/2024 10:29 AM EDT Impressions GE MUSE - 12/27/2024 10:29 AM EDT Normal sinus rhythm Normal ECG When compared with ECG of 26-APR-2013 10:20, T wave amplitude has decreased in Anterior leads Confirmed by Link CONRAD SAMER J. ([id number]) on 12/27/2024 10:29:01 AM Narrative Procedure Note Kady Conrad MD - 12/27/2024 IMPRESSION: Normal sinus rhythm Normal ECG When compared with ECG of 26-APR-2013 10:20, T wave amplitude has decreased in Anterior leads Confirmed by Link CONRAD SAMER J. ([id number]) on 12/27/2024 10:29:01 AM Gato Huynh MD ECG ORDERABLES Final Result GE MUSE from Last 3 Months Insurance [facility] MEDICARE Care Teams Cook Ship Relationship Specialty Start Date End Date Jose Danielson MD [address] [address] PCP - General 10/14/22
--- OUTSIDE RECORDS SUMMARY | 2025-01-02 08:44 | XMS_ITS | Patient Health Record ---
Author Organization [facility] in [place] Address [address] [place] [address] Care Team Providers Care Psych Assistant Name Role Phone Jose Alfaro Primary Care Provider [phone] Jay Doty Unavailable [phone] Allergies Allergen (clinical drug ingredient) Drug/Non Drug Allergy documented on EMR Reaction Allergy Type Onset Date Status ciprofloxacin Ciprofloxacin Unknown Drug Allergy Active Penicillin Unknown Drug Allergy Active Results Component Value Reference Range Notes COVID-19, Flu A+B IH Reviewed date:08/20/2024 02:02:41 PM Interpretation: Performing Lab: Notes/Report: COVID - FLU A + FLU B - Control + BNP Reviewed date:12/13/2024 06:55:10 PM Interpretation: Performing Lab: Notes/Report: [facility] , NT Pro B Type Natriuretic Pept 131.0 <=1800.0 pg/mL Performing Lab: see note ML - [facility] LB CBC AUTO DIFF Reviewed date:12/13/2024 06:55:10 PM Interpretation: Performing Lab: Notes/Report: [facility] , White Blood Count 6.0 4.0-11.0 10 3/uL Red Blood Count 3.81 4.70-6.10 10 6/uL Hemoglobin 13.4 14.0-18.0 g/dL Hematocrit 39.6 42.0-54.0 % Mean Corpuscular Volume 103.9 80.0-94.0 fL Mean Corpuscular Hemoglobin 35.2 25.9-34.0 pg Mean Corpuscular HGB Conc 33.8 29.9-35.2 g/dL Red Cell Distribution Width 13.1 11.0-15.0 % Platelet Count 155 150-450 10 3/uL Mean Platelet Volume 10.6 9.5-13.5 fL Neutrophils Percent Auto 66.3 43.0-75.0 % Lymphocytes Percent Auto 18.4 20.5-60.0 % Monocytes Percent Auto 10.1 1.7-12.0 % Eosinophils Percent Auto 4.0 0.9-7.0 % Basophils Percent Auto 0.5 0.2-2.0 % Immature Granulocytes Pct Auto 0.7 0.0-0.5 % Neutrophils Absolute Auto 4.0 1.4-6.5 10 3/uL Lymphocytes Absolute Auto 1.1 1.2-3.8 10 3/uL Monocytes Absolute Auto 0.6 0.3-0.8 10 3/uL Eosinophils Absolute Auto 0.2 0.0-0.7 10 3/uL Basophils Absolute Auto 0.0 0.0-0.1 10 3/uL Immature Granulocytes Abs Auto 0.04 0.00-0.03 10 3/uL Performing Lab: see note ML - [facility] LB PROF 14(COMP METB) Reviewed date:12/13/2024 06:55:10 PM Interpretation: Performing Lab: Notes/Report: [facility] , Sodium 142 136-145 mmol/L Potassium 4.3 3.5-5.1 mmol/L Chloride 107 98-107 mmol/L Carbon Dioxide 26.4 21.0-32.0 mmol/L Anion Gap 12.9 Glucose 153 74-106 mg/dL Blood Urea Nitrogen 24.0 7.0-18.0 mg/dL Creatinine 1.64 0.70-1.30 mg/dL Estimated GFR ( Yana 49 >=60 mL/min/1.73m 2 Estimated GFR (Non- Lisa 40 >=60 mL/min/1.73m 2 BUN Creatinine Ratio 14.6 Calcium 8.7 8.5-10.1 mg/dL Bilirubin Total 0.8 0.2-1.0 mg/dL Aspartate Amino Transferase 23 15-37 U/L Alanine Aminotransferase 31 16-63 U/L Alkaline Phosphatase 69 46-116 U/L Total Protein 6.2 6.4-8.2 g/dL Albumin Level 3.3 3.4-5.0 g/dL Globulin 2.9 Albumin Globulin Ratio 1.1 Performing Lab: see note ML - [facility] LB CREATININE Reviewed date:09/12/2024 07:49:34 PM Interpretation: Performing Lab: Notes/Report: [facility] , Creatinine 1.71 0.70-1.30 mg/dL Estimated GFR ( Yana 47 >=60 mL/min/1.73m 2 Estimated GFR (Non- Lisa 39 >=60 mL/min/1.73m 2 Performing Lab: see note ML - [facility] LB RENAL FUNCTION PANEL Reviewed date:05/30/2024 07:24:41 PM Interpretation: Performing Lab: Notes/Report: [facility] , Sodium 144 136-145 mmol/L Potassium 4.7 [...] Performing Lab: see note ML - [facility] LB UA RANDOM W or MICROSCOPIC Reviewed date:05/30/2024 07:24:41 PM Interpretation: Performing Lab: Notes/Report: [facility] , Color Urine LT. YELLOW YELLOW Clarity Urine CLEAR CLEAR Specific Gratz Urine 1.015 1.005-1.025 pH Urine 6.0 5.0-9.0 [...] Performing Lab: see note ML - [facility] LB URIC ACID SERUM Reviewed date:05/30/2024 07:24:41 PM Interpretation: Performing Lab: Notes/Report: [facility] , Uric Acid 7.5 3.5-7.2 mg/dL Performing Lab: see note ML - [facility] LB XR ankle LT min 3V Reviewed date:06/11/2024 02:13:25 PM Interpretation: Performing Lab: Notes/Report: Source Facility: [facility]-[address] [place] [address] [place] [address] XRay Report Signed Patient: GLADYS SMYTH MR#: [id number] : 1940 Acct:[id number] Age/Sex: 83 / M ADM Date: 06/07/24 Loc: RAD Attending Dr: Tray Alfaro M.D. Ordering Physician: Tray Alfaro M.D. Date of Service: 06/07/24 Procedure(s): XR ankle LT min 3V Accession Number(s): [id number] cc: Tray Alfaro M.D. The [place] [address] Patient Name: GLADYS SMYTH MRN: [id number] date: 1940 Sex: M Assigned Patient Location: [facility] Current Patient Location: Accession/Order Number: [id number] Exam Date: 06/07/2024 12:17 Report Date: 06/11/2024 [...] M.D. Signed By: 06/11/24716 DD/ 3 TD/TT: Drupal Architect: The [address] [address] XRay Report Signed Patient: CURTIS SMYTH MR#: [id number] : 1940 Acct:[id number] Age/Sex: 83 / M ADM Date: 06/07/24 Loc: RAD Attending Dr: Shereen Alfaro M.D. Ordering Physician: Tray Alfaro M.D. Date of Service: 06/07/24 Procedure(s): XR ank le LT min 3V Accession Number(s): [id number] cc: Tray Alfaro M.D. [address] [address] Patient Name: GLADYS SMYTH MRN: [id number] date: 1940 Sex: M Assigned Patient Location: [facility] Current Patient Location: US Accession/Order Numb er: [id number] Exam Date: 12:17 Report Date: 06/11/2024 07:14 [...] M.D. Signed By: 06/11/24716 DD/ 3 TD/TT: Drupal Architect: PTH, Intact Reviewed date:11/28/2024 09:18:57 PM Interpretation: Performing Lab: Notes/Report: [facility] , PTH, Intact 40 15-65 pg/mL Performed at: - [facility] [address] [id number] [facility] Aide: Lee Bob PhD, Phone: [phone] Performing Lab: see note - [facility] LB CA echo doppler complete Reviewed date:12/26/2024 07:07:14 PM Interpretation: Performing Lab: Notes/Report: Source Facility: [place] [id number] Cardiology Report Signed Patient: GLADYS SMYTH MR#: [id number] : 1940 Acct:[id number] Age/Sex: 84 / M ADM Date: 12/26/24 Loc: CARD Attending Dr: Tray Alfaro M.D. Ordering Physician: Tray Alfaro M.D. Date of Service: 12/26/24 Procedure(s): CA echo doppler complete Accession Number(s): [id number] cc: Tray Alfaro M.D. Patient Name: GLADYS SMYTH MR#: [id number] : 1940 Exam Date: 12/26/2024 Ordering Doctor: DR TRAY ALFARO . ECHOCARDIOGRAM REPORT PROCEDURE: CA ECHO DOPPLER COMPLETE INDICATIONS: Coronary artery disease COMPARISON: None. DESCRIPTION: COMPLETE ECHOCARDIOGRAM Real-time transthoracic echocardiography with 2D, M-mode, spectral and color flow Doppler performed. QUALITY: Technical quality was adequate. LEFT VENTRICLE: Normal chamber size. Borderline left ventricular hypertrophy. Global left ventricular systolic function is normal without wall motion abnormalities. Calculated left ventricular ejection fraction is 63%. LV EF: DIASTOLIC: Indeterminate diastolic function ATRIAL SEPTUM: Visually appears intact LEFT ATRIUM: Normal chamber size. RIGHT ATRIUM: Normal chamber size. RIGHT VENTRICLE: Normal chamber size. Normal right ventricular systolic function. TRICUSPID VALVE: Normal mobility and thickness. No stenosis with trivial regurgitation. No evidence of pulmonary hypertension.RVSP 9mmHg. MITRAL VALVE: Normal mobility and thickness. No evidence of mitral valve stenosis. There is no mitral annular calcification. No mitral regurgitation. AORTIC VALVE: Normal trileaflet appearance. Thickened aortic valve. Normal leaflet mobility. No evidence of aortic valve stenosis. No aortic regurgitation. AORTIC ROOT: Normal diameter and appearance. PULMONIC VALVE: Normal thickness and mobility. No stenosis. Trivial regurgitation. PERICARDIUM: No evidence of pericardial effusion. IVC: Collapes with inspirations. Normal size. PLEURA: CONCLUSION: Normal left ventricular systolic function without wall motion abnormalities, ejection fraction 63% Indeterminate left ventricular diastolic function Normal right ventricle size and systolic function Normal right-sided pressures No significant valvular abnormalities Adult Echocardiography Procedure Report Left Ventricle LVEDD (3.7 - 5.6 cm): 4.98 cm LVESD (2.2 - 4.0 cm): 3.54 cm LVIVS thickness (0.6 - 1.2 cm): 1.19 cm LVPW thickness (0.5 - 1.0 cm): 1.05 cm e': 0.06 m/s E - e': 9.82 LVOT Max Gradient: 2.47 mm[Hg] LVOT Area (cm2): 0.79 m/s Peak Velocity (LVOT): 0.79 m/s Mean Velocity (LVOT): 0.52 m/s LVOT Diameter 1.99 cm Left Ventricular Ejection Fraction: 62.54 % Left Atrium LA Volume Index (2D A2C): 35.78 ml/m2 Left Atrium Systolic Dimension: 3.95 cm Mitral Valve MV E to A Ratio: 0.92 Mitral Valve A-Wave Peak Velocity: 0.62 m/s Mitral Valve E-Wave Peak Velocity: 0.57 m/s Right Ventricle RV Internal Diastolic Dimension: 3.32 cm Aorta AO Root Diam: 3.36 cm Ascending Ao Diam: 3.00 cm Aortic Valve AoV Area (Peak Thiago): 2.11 cm2, 2.11 cm2 AoV Area (VTI): 2.41 cm2, 2.41 cm2 Peak Velocity(Antegrade Flow): 1.15 m/s Peak Gradient(Antegrade Flow): 5.33 mm[Hg] Mean Velocity(Antegrade Flow): 0.73 m/s Mean Gradient(Antegrade Flow): 2.52 mm[Hg] Velocity Time Integral: 23.28 cm Tricuspid Valve Peak Velocity (Regurgitant Flow): 1.20 m/s Pulmonic Valve Peak Velocity: 1.05 m/s Peak Gradient: 4.38 mm[Hg], 4.51 mm[Hg] Right Atrium Right Atrium Systolic Pressure: 41.10 ml, 41.10 ml Dictated by: Mundo Lee MD on 12/26/2024 at 18:09 Approved by: Mundo Lee MD on 12/26/2024 at 18:21 Dictated By: Mundo Lee M.D. Signed By: 12/26/241821 DD/ 20 TD/TT: Drupal Architect: [place] [address] Cardiology Report Signed Patient: CURTIS SMYTH MR#: [id number] : 1940 Acct:[id number] Age/Sex: 84 / M ADM Date: 12/26/24 Loc: CARD Attending Dr: Shereen Alfaro M.D. Ordering Physician: Tray Alfaro M.D. Date of Service: 12/26/24 Procedure(s): CA ech o doppler complete Accession Number(s): [id number] cc: Tray Alfaro M.D. Patient Name: GLADYS SMYTH MR#: [id number] : 1940 Exam Date: 12/26/2024 Ordering Doctor: DR TRAY ALFARO . ECHOCARDIOGRAM REPORT PROCEDURE: CA ECHO DOPPLER COMPLETE INDICATIONS: Coronar y artery disease COMPARISON: None. DESCRIPTION: COMPLE TE ECHOCARDIOGRAM Real-time transthoracic echocardiography wit h 2D, M-mode, spectral and color flow Doppler performed. QUALITY: Technical quality was adequate. LEFT VENTRICLE: Norm al chamber size. Borderline left ventricular hypertrophy. Global left ventricular systolic function is normal without wall motion abnormalities . Calculated left ventricular ejection fraction is 63%. LV EF: DIASTOLIC: Indetermi elaine diastolic function ATRIAL SEPTUM: Visua lly appears intact LEFT ATRIUM: Normal chamber size. RIGHT ATRIUM: Normal chamber size. RIGHT VENTRICLE: Nor mal chamber size. Normal right ventricular systolic function. TRICUSPID VALVE: Nor mal mobility and thickness. No stenosis with trivial regurgitation. No evidence of pulmonary hypertension.RVSP 9mmHg. MITRAL VALVE: Normal mobility and thickness. No evidence of mitral valve stenosis. There is n o mitral annular calcification. No mitral regurgitation. AORTIC VALVE: Normal trileaflet appearance. Thickened aortic valve. Normal leaflet mobil ity. No evidence of aortic valve stenosis. No aortic regurgitation. AORTIC ROOT: Normal diameter and appearance. PULMONIC VALVE: Norm al thickness and mobility. No stenosis. Trivial regurgitation. PERICARDIUM: No evid ence of pericardial effusion. IVC: Collapes with inspirations. Normal size. PLEURA: CONCLUSION: Normal left ventricu lar systolic function without wall motion abnormalities, ejection fraction 63% Indeterminate left ventricular diastolic function Normal right ventric le size and systolic function Normal right-sided pressures No significant valvu lar abnormalities Adult Echocardiograp hy Procedure Report Left Ventricle LVEDD (3.7 - 5.6 cm) : 4.98 cm LVESD (2.2 - 4.0 cm) : 3.54 cm LVIVS thickness (0.6 - 1.2 cm): 1.19 cm LVPW thickness (0.5 - 1.0 cm): 1.05 cm e': 0.06 m/s E - e': 9.82 LVOT Max Gradient: 2 .47 mm[Hg] LVOT Area (cm2): 0.7 9 m/s Peak Velocity (LVOT) : 0.79 m/s Mean Velocity (LVOT) : 0.52 m/s LVOT Diameter 1.99 cm Left Ventricular Ejection Fraction: 62.54 % Left Atrium LA Volume Index (2D A2C): 35.78 ml/m2 Left Atrium Systolic Dimension: 3.95 cm Mitral Valve MV E to A Ratio: 0.92 Mitral Valve A-Wave Peak Velocity: 0.62 m/s Mitral Valve E-Wave Peak Velocity: 0.57 m/s Right Ventricle RV Internal Diastoli c Dimension: 3.32 cm Aorta AO Root Diam: 3.36 cm Ascending Ao Diam: 3 .00 cm Aortic Valve AoV Area (Peak Thiago): 2.11 cm2, 2.11 cm2 AoV Area (VTI): 2.41 cm2, 2.41 cm2 Peak Velocity(Antegr joselin Flow): 1.15 m/s Peak Gradient(Antegr joselin Flow): 5.33 mm[Hg] Mean Velocity(Antegr joselin Flow): 0.73 m/s Mean Gradient(Antegr joselin Flow): 2.52 mm[Hg] Velocity Time Integr al: 23.28 cm Tricuspid Valve Peak Velocity (Regurgitant Flow): 1.20 m/s Pulmonic Valve Peak Velocity: 1.05 m/s Peak Gradient: 4.38 mm[Hg], 4.51 mm[Hg] Right Atrium Right Atrium Systoli c Pressure: 41.10 ml, 41.10 ml Dictated by: Mundo Lee MD on 12/26/2024 at 18:09 Approved by: Mundo Lee MD on 12/26/2024 at 18:21 Dictated By: Mundo Lee M.D. Signed By: 12/26/241821 DD/ 20 TD/TT: Drupal Architect: US renal BI Reviewed date:12/25/2024 06:55:02 PM Interpretation: Performing Lab: Notes/Report: Source Facility: [place] [id number] Ultrasound Report Signed Patient: GLADSY SMYTH MR#: [id number] : 1940 Acct:[id number] Age/Sex: 84 / M ADM Date: 12/25/24 Loc: US Attending Dr: Tray Alfaro M.D. Ordering Physician: Tray Alfaro M.D. Date of Service: 12/25/24 Procedure(s): US renal BI Accession Number(s): [id number] cc: Tray Alfaro M.D. [place] [address] Patient Name: GLADYS SMYTH MRN: [id number] date: 1940 Sex: M Assigned Patient Location: US Current Patient Location: US Accession/Order Number: [id number] Exam Date: 12/25/2024 11:16 Report Date: 12/25/2024 11:20 At the request of: TRAY ALFARO MD Procedure: US renal BI BILATERAL RENAL AND BLADDER ULTRASOUND CLINICAL HISTORY: Kidney Stone COMPARISON: CT 09/12/2024 and ultrasound 06/11/2024 Estimation of renal size is approximately 13.8 cm on the right and 11.7 cm on the left. There is thinning and increased echogenicity of the left renal cortex. Three suspected stones are seen at the right kidney. The largest is at the mid to lower pole measuring 7 mm. No hydronephrosis is identified. A cyst is visualized at the upper pole on the right measuring 19 x 18 x 18 mm. There is no perinephric fluid. The urinary bladder is poorly distended with a volume of 34 mL. No obvious contour or intraluminal abnormalities are seen. US/US renal BI IMPRESSION: LEFT RENAL ATROPHY. RIGHT RENAL CYST AND SUSPECTED NEPHROLITHIASIS. NO OBSTRUCTIVE UROPATHY. Impression dictated by: Anna Hui M.D. 12/25/2024 11:20 AM Dictation Location: [place] [address] Electronically authenticated by: [id number] Y Date: 12/25/2024 11:20 Dictated By: Anna Hui M.D. Signed By: 12/25/24 1123 DD/ 1120 TD/TT: Drupal Architect: [place] [address] Ultrasound Report Signed Patient: CURTIS SMYTH MR#: [id number] : 1940 Acct:[id number] Age/Sex: 84 / M ADM Date: 12/25/24 Loc: US Attending Dr: Shereen Alfaro M.D. Ordering Physician: Tray Alfaro M.D. Date of Service: 12/25/24 Procedure(s): US shar al BI Accession Number(s): [id number] cc: Tray Alfaro M.D. [place] [id number] Patient Name: GLADYS SMYTH MRN: [id number] date: 1940 Sex: M Assigned Patient Location: US Current Patient Location: US Accession/Order Numb er: [id number] Exam Date: 12/25/2024 11:16 Report Date: 12/25/2024 11:20 At the request of: TRAY ALFARO MD Procedure: US renal BI BILATERAL RENAL AND BLADDER ULTRASOUND CLINICAL HISTORY: Ki dney Stone COMPARISON: CT 2024 and ultrasound 06/11/2024 Estimation of renal size is approximately 13.8 cm on the right and 11.7 cm on the left. There is thinning and increased echogenicity of the left renal cortex. Three suspec ike stones are seen at the right kidney. The largest is at the mid to lower pole measuring 7 mm. No hydronephrosis is identified. A cyst is visualized a t the upper pole on the right measuring 19 x 18 x 18 mm. There is no perineph nena fluid. The urinary bladder is poorly distended with a volume of 34 mL. No obvious contour or intralumi nal abnormalities are seen. U S/US renal BI IMPRESSION: LEFT RENAL ATROPHY. RIGHT RENAL CYST AND SUSPECTED NEPHROLITHIASIS. NO OBSTRUCTIVE UROPATHY. Impression dictated by: Anna Hui M.D. 12/25/2024 11:20 AM Dictation Location: [place] [address] Electronically authenticated by: [id number] Y Date: 12/25/2024 11:20 Dictated By: Anna Hui M.D. Signed By: 12/25/24 1123 DD/ 1120 TD/TT: Drupal Architect: XIAO brie perf SPECT rest str Reviewed date:12/19/2024 09:04:16 PM Interpretation: Performing Lab: Notes/Report: Source Facility: [place] [id number] Nuclear Medicine Report Signed Patient: GLADYS SMYTH MR#: [id number] : 1940 Acct:[id number] Age/Sex: 84 / M ADM Date: 12/12/24 Loc: CARD Attending Dr: Tray Alfaro M.D. Ordering Physician: Tray Alfaro M.D. Date of Service: 12/12/24 Procedure(s): NM brie perf SPECT rest str Accession Number(s): [id number] cc: Tray Alfaro M.D. Patient Name: GLADYS SMYTH MR#: [id number] : 1940 Exam Date: 12/12/2024 Ordering Doctor: DR TRAY ALFARO . RADIOLOGY REPORT PROCEDURE: NM BRIE PERF SPECT REST STR COMPARISON: None. INDICATIONS: CORONARY ARTERY DISEASE TECHNIQUE: Exam Description: Stress/Rest two day protocol gated SPECT Rest Imagin.8 mCi Tc-99m Cardiolite IV on 12/13/2024 Stress Imaging 25.5 mCi Tc-99m Cardiolite IV on 12/12/2024 Exercise Protocol: 0.4 mg Lexiscan given IV Heart Rate (bpm): Rest: 65 Max: 76 PMHR: 55 Blood Pressure: Rest: 164/92 Max: 182/86 Symptoms: Rest and peak stress ECG findings were pending and the EKG portion of the study was pending per attending physician [facility] . For more details please see separate cardiac stress test report. FINDINGS: QUALITY OF STUDY: Good PERFUSION DEFECT: LOCATION: Inferior SIZE: Medium SEVERITY: Mild to moderate TYPE: Reversible WALL MOTION: Normal LV SIZE: 96 mL. TID / TCD: 0.8 LVEF: Calculated EF 75%. SUMMARY: Abnormal myocardial perfusion imaging study CONCLUSION: Abnormal myocardial perfusion stress test showing evidence of inferior ischemia Normal left ventricle systolic function, ejection fraction 75% No evidence of transit ischemic dilatation, TID 0.8 EKG portion of stress test is reported separate Dictated by: Mundo Lee MD on 12/18/2024 at 15:38 Approved by: Mundo Lee MD on 12/18/2024 at 15:42 Dictated By: Mundo Lee M.D. Signed By: 12/18/24 1543 DD/ 1542 TD/TT: Drupal Architect: [place] [address] Nuclear Medicine Report Signed Patient: CURTIS SMYTH MR#: [id number] : 1940 Acct:[id number] Age/Sex: 84 / M ADM Date: 12/12/24 Loc: CARD Attending Dr: Shereen Alfaro M.D. Ordering Physician: Tray Alfaro M.D. Date of Service: 12/12/24 Procedure(s): NM brie perf SPECT rest str Accession Number(s): [id number] cc: Tray Alfaro M.D. Patient Name: GLADYS SMYTH MR#: [id number] : 1940 Exam Date: 12/12/2024 Ordering Doctor: DR TRAY ALFARO . RADIOLOGY REPORT PROCEDURE: NM BRIE PE RF SPECT REST STR COMPARISON: None. INDICATIONS: CORONAR Y ARTERY DISEASE TECHNIQUE: Exam Description: Stress/Rest two day protocol gated SPECT Rest Imagin.8 m Ci Tc-99m Cardiolite IV on 12/13/2024 Stress Imaging 25.5 mCi Tc-99m Cardiolite IV on 12/12/2024 Exercise Protocol: 0 .4 mg Lexiscan given IV Heart Rate (bpm): Re st: 65 Max: 76 PMHR: 55 Blood Pressure: Rest : 164/92 Max: 182/86 Symptoms: Rest and peak stress ECG findings were pending and the EKG portion of the study was pending pe r attending physician [facility] . For more details please see separate cardiac str ess test report. FINDINGS: QUALITY OF STUDY: Good PERFUSION DEFECT: LOCATION: Inferior SIZE: Medium SEVERITY: Mild to moderate TYPE: Reversible WALL MOTION: Normal LV SIZE: 96 mL. TID / TCD: 0.8 LVEF: Calculated EF 75%. SUMMARY: Abnormal myocardial perfusion imaging study CONCLUSION: Abnormal myocardial perfusion stress test showing evidence of inferior ischemia Normal left ventricl e systolic function, ejection fraction 75% No evidence of trans it ischemic dilatation, TID 0.8 EKG portion of stres s test is reported separate Dictated by: Mundo Lee MD on 12/18/2024 at 15:38 Approved by: Mundo Lee MD on 12/18/2024 at 15:42 Dictated By: Mundo Lee M.D. Signed By: 12/18/24 1543 DD/ 1542 TD/TT: Drupal Architect: Troponin I High Sensitivity Reviewed date:12/13/2024 06:55:10 PM Interpretation: Performing Lab: Notes/Report: [facility] , Troponin I High Sensitivity 6.2 4.0-76.1 pg/mL CUT-OFF POINTS HAVE BEEN ESTABLISHED BASED ON THE FOURTH UNIVERSAL DEFINITION OF MYOCARDIAL INFARCTION. THE UPPER REFERENCE LIMIT (URL) OF TROPONIN, DEFINED THE 99TH PERCENTILE OF cTnI DISTRIBUTION IN A REFERENCE POPULATION, HAS BEEN CONFIRMED THE DECISION THRESHOLD FOR WI DIAGNOSIS. 99TH PERCENTILE = 76.2 PG/ML NOTE: HIGH-SENSITIVITY TROPONIN ASSAY IS NOT INTENDED TO BE USED IN ISOLATION BUT SHOULD BE INTERPRETED IN CONJUNCTION WITH OTHER DIAGNOSTIC AND CLINICAL INFORMATION. Performing Lab: see note ML - [facility] LB CBC no Diff (Hemogram) Reviewed date:11/27/2024 04:11:10 PM Interpretation: Performing Lab: Notes/Report: [facility] , White Blood Count 6.0 4.0-11.0 10 [...] fL Performing Lab: see note ML - [facility] LB VITAMIN D 25 [place] Reviewed date:11/27/2024 04:11:10 PM Interpretation: Performing Lab: Notes/Report: [facility] , Vitamin D 70.4 <20 ng/mL Vit D deficient 20-<30 ng/mL Vit D insufficient 30-100 ng/mL Vit D sufficient >100 ng/mL Potential Toxicity Performing Lab: see note ML - [facility] LB URINE T PROTEIN CREAT RATIO Reviewed date:11/27/2024 04:11:10 PM Interpretation: Performing Lab: Notes/Report: [facility] , Total Protein Urine Random 33.1 <=11.9 mg/dL Creatinine Urine Random 179.73 20.00-30 0.00 mg/dL Protein Creatinine Ratio Urine 0.18 Performing Lab: see note ML - [facility] LB URIC ACID SERUM Reviewed date:11/27/2024 04:11:10 PM Interpretation: Performing Lab: Notes/Report: [facility] , Uric Acid 6.8 3.5-7.2 mg/dL Performing Lab: see note ML - [facility] LB UA RANDOM W or MICROSCOPIC Reviewed date:11/27/2024 04:11:10 PM Interpretation: Performing Lab: Notes/Report: [facility] , Color Urine YELLOW YELLOW Clarity Urine CLEAR CLEAR Specific Gratz Urine 1.025 1.005-1.025 pH Urine 6.0 5.0-9.0 [...] #/LPF Performing Lab: see note ML - [facility] RENAL FUNCTION PANEL Reviewed date:11/27/2024 04:11:10 PM Interpretation: Performing Lab: Notes/Report: [facility] , Sodium 145 136-145 mmol/L Potassium 4.7 [...] 3.4-5.0 g/dL Performing Lab: see note - [facility] MAGNESIUM Reviewed date:11/27/2024 04:11:10 PM Interpretation: Performing Lab: Notes/Report: [facility] , Magnesium 1.8 1.8-2.4 mg/dL Performing Lab: see note ML - [facility] LB CT abdomen pelvis w con Reviewed date:09/12/2024 07:49:34 PM Interpretation: Performing Lab: Notes/Report: Source Facility: [facility]-[address] [place] [address] [place] [address] CT Scan Report Signed Patient: GLADYS SMYTH MR#: [id number] : 1940 Acct:[id number] Age/Sex: 84 / M ADM Date: 09/12/24 Loc: LAB Attending Dr: Tray Alfaro M.D. Ordering Physician: Tray Alfaro M.D. Date of Service: 09/12/24 Procedure(s): CT abdomen pelvis w con Accession Number(s): [id number] cc: Tray Alfaro M.D. [address] [address] Patient Name: GLADYS SMYTH MRN: [facility]:[id number] date: 1940 Sex: M Assigned Patient Location: LAB Current Patient Location: LAB Accession/Order Number: [id number] Exam Date: 09/12/2024 12:26 Report Date: 09/12/2024 [...] Mucocele cannot BE excluded. Impression dictated by: Dread Bowers Jr.OManohar09/12/2024 12:33 PM Dictation Location: [place] [address] Electronically authenticated by: [id number] Y Date: 09/12/2024 12:33 Dictated By: Ifeanyi Perez M.D. Signed By: 09/12/24 1236 DD/ 1233 TD/TT: Drupal Architect: The [address] [address] [address] Scan Report Signed Patient: CURTIS SMYTH MR#: [id number] : 1940 Acct:[id number] Age/Sex: 84 / M ADM Date: 09/12/24 Loc: LAB Attending Dr: Shereen Alfaro M.D. Ordering Physician: Tray Alfaro M.D. Date of Service: 09/12/24 Procedure(s): CT abd omen pelvis w con Accession Number(s): [id number] cc: Tray Alfaro M.D. [place] [id number] Patient Name: GLADYS SMYTH MRN: [id number] date: 1940 Sex: M Assigned Patient Location: LAB Current Patient Location: LAB Accession/Order Numb er: [id number] Exam Date: 09/12/2024 12:26 Report Date: 09/12/2024 [...] Perez Jr., D.O.09/12/2024 12:33 PM Dictation Location: [place] [address] Electronically authenticated by: [id number] Y Date: 09/12/2024 12:33 Dictated By: Ifeanyi Perez M.D. Signed By: 09/12/24 1236 DD/ 1233 TD/TT: Drupal Architect: US renal BI Reviewed date:06/11/2024 02:13:25 PM Interpretation: Performing Lab: Notes/Report: Source Facility: [place] [id number] Ultrasound Report Signed Patient: GLADYS SMYTH MR#: [id number] : 1940 Acct:[id number] Age/Sex: 83 / M ADM Date: 06/11/24 Loc: US Attending Dr: Srinivas Olivares M.D. Ordering Physician: Srinivas Olivares M.D. Date of Service: 06/11/24 Procedure(s): US renal BI Accession Number(s): [id number] cc: Srinivas Olivares M.D.; Tray Alfaro M.D. [place] [address] Patient Name: GLADYS SMYTH MRN: [id number] date: 1940 Sex: M Assigned Patient Location: US Current Patient Location: US Accession/Order Number: [id number] Exam Date: 06/11/2024 07:00 Report Date: 06/11/2024 [...] Signed By: 06/11/24 0751 DD/ 0748 TD/TT: Drupal Architect: [place] [address] Ultrasound Report Signed Patient: CURTIS SMYTH MR#: [id number] : 1940 Acct:[id number] Age/Sex: 83 / M ADM Date: 06/11/24 Loc: US Attending Dr: Lisa Maza Ordering Physician: Srinivas Olivares M.D. Date of Service: 06/11/24 Procedure(s): US shar al BI Accession Number(s): [id number] cc: Srinivas Olivares M.D; Tray Alfaro M.D. [place] [id number] Patient Name: GLADYS SMYTH MRN: [id number] date: 1940 Sex: M Assigned Patient Location: US Current Patient Location: US Accession/Order Numb er: [id number] Exam Date: 07:00 Report Date: 06/11/2024 07:48 [...] Signed By: 06/11/24 0751 DD/ 0748 TD/TT: Drupal Architect: PTH, Intact Reviewed date:05/31/2024 12:45:04 PM Interpretation: Performing Lab: Notes/Report: [facility] , PTH, Intact 61 15-65 pg/mL Performed at: - [facility] [address] [id number] [facility] Aide: Lee Bob PhD, Phone: [phone] Performing Lab: see note - [facility] LB CBC no Diff (Hemogram) Reviewed date:05/30/2024 07:24:41 PM Interpretation: Performing Lab: Notes/Report: The [facility] , White Blood Count 6.8 4.0-11.0 10 [...] fL Performing Lab: see note ML - The [facility] LB VITAMIN D 25 [place] Reviewed date:05/30/2024 07:24:41 PM Interpretation: Performing Lab: Notes/Report: The [facility] , Vitamin D 64.6 <20 ng/mL Vit D deficient 20-<30 ng/mL Vit D insufficient 30-100 ng/mL Vit D sufficient >100 ng/mL Potential Toxicity Performing Lab: see note ML - [facility] LB URINE T PROTEIN CREAT RATIO Reviewed date:05/30/2024 07:24:41 PM Interpretation: Performing Lab: Notes/Report: [facility] , Total Protein Urine Random 16.5 <=11.9 mg/dL Creatinine Urine Random 84.23 20.00-30 0.00 mg/dL Protein Creatinine Ratio Urine 0.20 Performing Lab: see note ML - [facility] LB MAGNESIUM Reviewed date:05/30/2024 07:24:41 PM Interpretation: Performing Lab: Notes/Report: [facility] , Magnesium 1.9 1.8-2.4 mg/dL Performing Lab: see note ML - [facility] LB PSA Total+% Free Reviewed date:03/29/2024 08:37:00 PM Interpretation: Performing Lab: Notes/Report: [facility] , Prostate Specific Ag 6.2 0.0-4.0 ng/mL Brenda ECLIA methodology. According to the [place] [employer], Serum PSA should decrease and [...] 10% 20% >25.00% 5% 9% Please note: dAelaide et al did not make specific recommendations regarding the use of percent free PSA for any other population of men. Performed at: - [facility] [id number] [facility] Aide: Lee Bob PhD, Phone: [phone] Performing Lab: see note - [facility] LB Occult Blood* Reviewed date:03/29/2024 08:37:00 PM Interpretation: Performing Lab: Notes/Report: [facility] , Occult Blood Positive Performing Lab: see note - [facility] LB TSH Reviewed date:03/28/2024 09:25:13 PM Interpretation: Performing Lab: Notes/Report: [facility] , Thyroid Stimulating Hormone 0.837 0.358-3.740 uIU/mL Performing Lab: see note - [facility] LB PROF 14(COMP METB) Reviewed date:03/28/2024 09:25:13 PM Interpretation: Performing Lab: Notes/Report: [facility] , Sodium 138 136-145 mmol/L Potassium 4.8 [...] 1.0 Performing Lab: see note ML - The [facility] LB FREE T4 Reviewed date:03/28/2024 09:25:13 PM Interpretation: Performing Lab: Notes/Report: The [facility] Free T4 1.12 0.76-1.46 ng/dL Performing Lab: see note ML - The [facility] LB FREE T3 Reviewed date:03/28/2024 09:25:13 PM Interpretation: Performing Lab: Notes/Report: [facility] , Free T3 2.43 2.18-3.98 pg/mL Performing Lab: see note ML - [facility] LB LIPID PROFILE Reviewed date:03/28/2024 09:25:13 PM Interpretation: Performing Lab: Notes/Report: [facility] , Triglycerides 85 <=150 mg/dL Cholesterol 104 [...] RISK Performing Lab: see note ML - [facility] LB GLYCOHEMOGLOBIN A1C Reviewed date:03/28/2024 09:25:13 PM Interpretation: Performing Lab: Notes/Report: [facility] , Glycohemoglobin A1C 6.9 4.5-6.2 % ADA RECOMMENDED LIMIT 4.0 - 6.0 ADA THERAPEUTIC TARGET < 7.0 ACTION SUGGESTED > 7.0 Estimated Average Glucose 151 Performing Lab: see note ML - The [facility] LB CBC AUTO DIFF Reviewed date:03/28/2024 09:25:13 PM Interpretation: Performing Lab: Notes/Report: [facility] , White Blood Count 6.3 4.0-11.0 10 [...] 3/uL Performing Lab: see note ML - The [facility] Reason For Referral No Information Medications Medication SIG (Take, Route, Frequency, Duration) Notes Start Date End Date Status Nitrostat 0.4 MG as directed Sublingual Active Metoprolol Tartrate 50 MG 1 tablet with food Orally Twice a day Active Magnesium Oxide 400 MG 1 tablet as neede d Orally Once a day Active Lisinopril 20 MG 1 tablet Orally Once a day Active Levsin/SL 0.125 MG 1 tablet under the t ongue and allow to dissolve as needed Sublingual AC and HS 07/19/2023 Active Ketoconazole 2 % 1 application Building Equipment Inspector ally Once a day Active Januvia 100 MG TAKE 1 TABLET BY ONCE DAILY for 90 days Active Isosorbide Mononitrate ER 120 MG 2 tablets Orally Once a day for 90 days Active Liothyronine Sodium 5 MCG 1 tablet on [...] Status Comme nts Arexvy Unknown 03/06/2024 Administered ClearContextirnaty groopify Syringe Pre-Filled 30 mcg/0.3 mL Unknown 03/06/2024 Administered Flu, Fluad (3817-7396) (14604) 65 yrs+, single-dose syringe IM Intramuscular 03/23/2023 Administered Flu, Fluad (53892) 65 yrs + High Dose Seasonal (8301-7939) Unknown 03/06/2024 Administered Pneumococcal (Prevnar 13) Unknown [...] Status Risk Notes Problem Chronic kidney disease (323915611) Chronic kidney disease, unspecified (N18.9) Active confirmed Problem Morbid obesity (disorder) (717247495) Morbid (severe) obesity due to excess calories (E66.01) Active confirmed Problem Hypocalcemia (9033019) Hypocalcemia (E83.51) Active confirmed Problem Disorder of prostate (39461122) Disorder of prostate, unspecified (N42.9) Active confirmed Problem Weakness (38795251) Weakness (R53.1) Active confirmed Problem Onychomycosis caused by dermatophyte (373119412) OM (onychomycosis) (B35.1) Active confirmed Problem Hyperlipidemia (68469099) Hyperlipidemia (E78.5) Active confirmed Problem Hypertension (26011076) Hypertension (I10) Active confirmed Problem COPD - Chronic obstructive pulmonary disease (50565960) COPD (chronic obstructive pulmonary disease) (J44.9) Active confirmed Problem Hypothyroidism (11413507) Hypothyroidism (E03.9) Active confirmed Problem Carpal tunnel syndrome (38441752) Carpal tunnel syndrome (G56.00) Active confirmed Problem Coronary artery disease (04600668) CAD (coronary artery disease) (I25.10) Active confirmed Problem Coronary artery disease (75323651) Coronary artery disease (I25.10) Active confirmed Problem Left ventricular hypertrophy (02961040) Left ventricular hypertrophy (I51.7) Active confirmed Problem Diabetes mellitus type 2 (disorder) (20023044) DM2 (diabetes mellitus, type 2) (E11.9) Active confirmed Problem Kidney stone (06795760) Kidney stone (N20.0) Active confirmed Problem Nephrolithiasis (50958455) Nephrolithiasis (N20.0) Active confirmed Problem Right lower quadrant pain (842030185) Right lower quadrant abdominal pain (R10.31) Active confirmed Problem Acquired hypothyroidism (247677071) Acquired hypothyroidism (E03.9) Active confirmed Problem Appendicitis (32948571) Appendicitis (K37) Active confirmed Problem Obstructive uropathy (2646291) Obstructive uropathy (N13.9) Active confirmed Problem Pre-surgery evaluation (364752337) Pre-op exam (Z01.818) Active confirmed Problem Diverticulitis (46394781) Diverticulitis (K57.92) Active confirmed Problem Hemorrhoids (42892912) Hemorrhoids (K64.9) Active confirmed Problem Pyelonephritis (06456774) Pyelonephritis (N12) Active confirmed Problem Arthralgia of the ankle and/or foot (071129916) Left ankle pain (M25.572) Active confirmed Problem Acute sinusitis (87574305) Acute sinus infection (J01.90) Active confirmed Problem Benign prostatic hyperplasia (735167358) Benign prostatic hyperplasia (N40.0) Active confirmed Problem Overweight (273464904) Over weight (E66.3) Active confirmed Problem Dyshidrotic eczema (040723409) 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) Active confirmed Problem Hydronephrosis (71571792) Hydronephrosis (N13.30) Active confirmed Problem Ex-tobacco user (finding) (297776352) History of tobacco abuse (Z87.891) Active confirmed Problem Old myocardial infarction (4324925) History of ST elevation myocardial infarction (STEMI) (I25.2) Active confirmed Problem Adenocarcinoma of prostate (646623588) Adenocarcinoma of prostate (C61) Active confirmed Problem Cholesteatoma (951549) Cholesteatoma (H71.90) Active confirmed Problem Shoulder impingement syndrome (767508284) Shoulder impingement syndrome (M75.40) Active confirmed Problem Benign neoplasm of colon (25893799) Colon polyp, hyperplastic (K63.5) Active confirmed Problem Leukocytosis (107116083) Elevated WBCs (D72.829) Active confirmed Problem Essential hypertension (00959675) BP (high blood pressure) (I10) Active confirmed Problem Acute nontraumatic kidney injury (715256467594170) Acute nontraumatic kidney injury (N17.9) Active confirmed Problem 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) Active confirmed Problem Diabetes mellitus (28604824) Diabetes mellitus (E11.9) Active confirmed Problem Chronic kidney disease stage 3B (disorder) (561429997) Chronic kidney disease, stage 3b (N18.32) Active [...] N/A Encounters Encounter Location Date Provider Diagnosis [address] [address] 03/07/2024 Jose Alfaro Onychomycosis B35.1 ; DM2 (diabetes mellitus, type 2) E11.9 ; Hypothyroidism E03.9 ; Hypertension I10 and COPD (chronic obstructive pulmonary disease) J44.[address] [address] 09/05/2024 Jose Alfaro DM2 (diabetes [facility], type 2) E11.9 ; Hypothyroidism E03.9 ; Hyperlipidemia E78.5 ; Hypertension I10 and Appendicitis K37 [address] [address] 08/03/2024 Jose Alfaro Chronic kidney disea se, stage 3b N18.32 ; DM2 (diabetes mellitus, type 2) E11.9 ; Diabetes mellitus E11.9 ; Morbid (severe) obesity due to excess calories E66.01 ; 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 ; COPD (chronic obstructive pulmonary disease) J44.9 and De Quervain's disease (tenosynovitis) M65.4 [facility] [address] [place] [address] 08/20/2024 Jose Hoy Fever R50.9 and Acut e bronchitis, unspecified organism J20.9 [facility] [address] [place] [address] 12/06/2024 Jose Alfaro DM2 (diabetes [facility], type 2) E11.9 ; History of ST elevation myocardial infarction (STEMI) I25.2 ; Hypothyroidism E03.9 ; Over weight E66.3 ; Hyperlipidemia E78.5 ; Coronary artery disease I25.10 and Hypertension I10 [facility]monary [facility] [address] [place] [address] 04/18/2024 Jay Doty COPD (chronic obstructive pulmonary disease) J44.9 and History of tobacco abuse Z87.891 [facility] [address] [place] [address] 06/07/2024 Jose Hoy Left ankle pain M25. 572 ; DM2 (diabetes mellitus, type 2) E11.9 ; Hypothyroidism E03.9 ; Hyperlipidemia E78.5 ; COPD (chronic obstructive pulmonary disease) J44.9 and BP (high blood pressure) I10 Pulmonary [facility] [address] [place] [address] 01/05/2024 Jay Doty [facility] [address] [place] [address] 02/28/2024 Jose Alfaro [facility] [address] [place] [address] 03/26/2024 Jose Alfaro Wellness examination Z01.89 [facility] [address] [place] [address] 03/28/2024 Jose Alfaro [facility] [address] [place] [address] 03/29/2024 Jose Alfaro [facility] [address] [place] [address] 06/11/2024 Jose Alfaro [place] [address] [facility] [place] [address] 09/06/2024 Jose Alfaro Encounter for other preprocedural examination Z01.818 [facility] [address] [facility] [place] [address] 09/12/2024 Jose Alfaro [facility] [address] [facility] [place] [address] 12/13/2024 Jose Alfaro [facility] [address] [facility] [place] [address] 12/19/2024 Jose nissa [facility] [address] [facility] [place] [address] 12/25/2024 Jose Alfaro [facility] [address] [facility] [place] [address] 12/26/2024 Jose Alfaro [facility] [address] [facility] [place] [address] 12/31/2024 Jose Alfaro Assessments Encounter Date Diagnosis (ICD [...] vaporizer to help keep the drainage moist. Wapo-kzs-bmskbon Nasal Saline may help the stuffy and runny nose. Use Ibuprofen and or Tylenol as needed for fever, chills, body aches or pain. Children 5 years old should not be given cugf-hcr-zmeofcp cough and cold medications such as guaifenesin and dextromethorphan. If you're over age 5, you may try rdfc-nag-cyfzjrp cold medications such as guaifenesin and dextromethorphan, [...] Diabetes mellitus (ICD-10 - E11.9) likely up [facility] sgteroids - 112 yesterday 09/05/2024 Hyperlipidemia [...] OCCULT BLOOD 03/26/2024 High Sensitivity Troponin 12/06/2024 CT ABD and PELV W CON [...] Name:Jay Doty, 04/23/2025 09:00:00 AM, [address] [place], [address], Insurance Providers Payer Name Payer Address Payer Phone Subscriber Number Group Number Insured Name Patient Relationship to Insured Coverage Start Date Coverage End Date [employer] MEDICARE [address] [address] [place], [place] [id number] [phone] [id number] Gladys Smyth Self - patient is the [...]
--- OUTSIDE RECORDS SUMMARY | 2025-01-02 08:44 | XMS_ITS | Encounter Summary ---
Author Organization The [facility] Address [address] [place] [address] Care Team Providers Care Mineral Industry Teacher Name Role Phone Jose Danielson MD Primary Care Provider [phone] Reason for Visit * Reason Comments Med Refill Encounter Details Date Type Department Care Team (Late st Contact Info) Description 03/18/2022 Refill [facility] [address] [place] [phone] Gato Huynh MD [address] [facility] [place] [address] Essential hypertension (Primary Dx) Social History Tobacco [...] Description 01/28/2025 11:45 AM EDT Follow-Up [facility] [address] [place] [address] Gato Huynh MD [address] [place] [address] documented as of this encounter Visit Diagnoses Diagnosis Essential hypertension- Primary Unspecified essential hypertension documented in this encounter Care Teams Mineral Industry Teacher Relationship Specialty Start Date End Date Jose Danielson MD [address] [facility] [address] [address] PCP - General 10/14/22 documented as of this encounter
--- OUTSIDE RECORDS SUMMARY | 2025-01-02 08:44 | XMS_ITS ---
Author Organization The [facility] Address [address] [place] [address] Care Team Providers Care Flare Worker Name Role Phone Jose Danielson MD Primary Care Provider [phone] Active Problems Problem Noted Date Diagnosed Date [...] 05/16/2013 Type 2 diabetes mellitus without complication Current Treatment and Therapy Plans No current plan information found. Past Treatment and Therapy Plans No past plan information found. Lifetime Dose Tracking * Chemical Lifetime Dose Automatic Entry Manual Entr y Fluoro Time 4.5 minutes 0 minutes 4.5 minutes Air Kerma 407 mGy 0 mGy 407 mGy
--- OUTSIDE RECORDS SUMMARY | 2025-01-02 08:44 | XMS_ITS | Encounter Summary ---
Author Organization The [facility] Address [address] [place] [address] Care Team Providers Care Lacing Presser Name Role Phone Jose Danielson MD Primary Care Provider [phone] Encounter Details Date Type Department Care Team (Late st Contact Info) Description 01/02/[address] [address] Dixie Salomon MA Social History Tobacco Use Types Packs/Day Years [...] Info) Description 01/28/2025 11:45 AM EDT Follow-Up [place] [address] [place] [address] Gato Huynh MD [address] [facility] [place] [address] documented as of this encounter Visit Diagnoses Not on filedocumented in this encounter Care Teams Lacing Presser Relationship Specialty Start Date End Date Jose Danielson MD [address] [facility] [place] [phone] PCP - General 10/14/22 documented as of this encounter
--- OUTSIDE RECORDS SUMMARY | 2025-01-02 08:45 | XMS_ITS | Encounter Summary ---
Author Organization The [facility] Address [address] [place] [address] Care Team Providers Care Coroner Name Role Phone Jose Danielson MD Primary Care Provider [phone] Reason for Visit * Reason Comments Med Refill Encounter Details Date Type Department Care Team (Late st Contact Info) Description 03/02/2023 Refill [facility] [address] [place] [address] Riya Gage, HISTOLOGY AIDE [address] [place] [address] Coronary artery disease involving red cliff coronary artery of red cliff heart without angina pectoris Social History Tobacco [...] Info) Description 01/28/2025 11:45 AM EDT Follow-Up [facility] [address] [place] [address] Gato Huynh MD [address] [facility] [place] [address] documented as of this encounter Visit Diagnoses Diagnosis Coronary artery disease involving red cliff coronary artery of red cliff heart without angina pectoris documented in this encounter Care Teams Coroner Relationship Specialty Start Date End Date Jose Danielson MD [address] [facility] [address] [place] [phone] PCP - General 10/14/22 documented as of this encounter
[2025-01-02 09:21] LABS: Anion Gap 18.2; Blood Urea Nitrogen 41.0 mg/dL (7.0-18.0); Calcium 8.7 mg/dL (8.5-10.1); Carbon Dioxide 22.8 mmol/L (21.0-32.0); Chloride 108 mmol/L (98-107); Estimated GFR (African America 33 (>=60 mL/min/1.73m^2); Estimated GFR (Non-African Ame 27 (>=60 mL/min/1.73m^2); Glucose 148 mg/dL (74-106); Potassium 5.0 mmol/L (3.5-5.1); Sodium 144 mmol/L (136-145)
== END 2025-01-02 08:41 | disposition home or self-care (01) ==
LOC: LAB 08:41
PROVIDERS: PCP Family Medicine; Visit Provider Internal Medicine Interventional Cardiology
DX: I25.118 Atherosclerotic heart disease of native coronary artery with other forms of angina pectoris (principal)
CPT/HCPCS: 36415; 80048

== ENCOUNTER 2025-02-27 09:15 | Outpatient (OUT) | payer MEDICARE, SELFPAY ==
--- OUTSIDE RECORDS SUMMARY | 2024-12-25 14:54 | XMS_ITS ---
Author Organization The [facility] in [place] Address [address] [place] [address] Care Team Providers Care Advertisement Compositor Name Role Phone Jose Danielson Primary Care Provider [phone] REASON FOR VISIT US results Problems Problem Type SNOMED Code ICD Code Onset Dates Problem Status W/U Status Risk Notes Problem Kidney stone (N20.0) Active confirmed Encounters Encounter Location Date Provider Diagnosis [facility] [address] [place] [address] 12/25/2024 Jose Dustinnissa Plan Of Treatment No Information Progress Notes * SMYTH AristidesesDOB:[birth year] (84 yo M)Acc No.[id number]:12/25/2024 Patient: Victorino GUEVARA :1940 A ge:84 Y S ex:Male Address:[address] [place] [phone] * true * Date: Generated for Printi concepcion/Fajemmag/eTransmitting on: 0 02/27/2025 09:22 AM EDT
--- OUTSIDE RECORDS SUMMARY | 2024-12-26 15:06 | XMS_ITS ---
Author Organization The [facility] in [place] Address [address] [place] [address] Care Team Providers Care Facing End Trimmer Name Role Phone Jose Danielson Primary Care Provider REASON FOR VISIT ECHO results Encounters Encounter Location Date Provider Diagnosis [facility] [address] [place] [address] 12/26/2024 Jose Danielson Plan Of Treatment No Information Progress Notes * SMYTHAristides DUENASesDOB:[birth year] (84 yo M)Acc No.[id number]:12/26/2024 Patient: Victorino GUEVARA :1940 A ge:84 Y S ex:Male Address:[address] [place] [address], [place], [address] * true * Date: Generated for Bienvenidoi concepcion/Eve/eTransmitting on: 0 02/27/2025 09:21 AM EDT
--- OUTSIDE RECORDS SUMMARY | 2024-12-31 12:14 | XMS_ITS ---
Author Organization [facility] [place] Address [address] [place] [address] Care Team Providers Care Ironworker Apprentice Name Role Phone Erum Jose Primary Care Provider [phone] REASON FOR VISIT rf thyroid meds Medications Medication SIG (Take, Route, Frequency, Duration) Notes Start Date End Date Status Liothyronine Sodium 5 MCG 1 tablet on an empty stomach Orally Once a day for 90 days Active Levothyroxine Sodium 50 MCG 1 tablet in the morning on an empty stomach Orally Once a day for 90 days Active Encounters Encounter Location Date Provider Diagnosis [address] [address] 12/31/2024 Jose Erum Plan Of Treatment Medication Medication Name Sig Start Date Stop Date Notes Liothyronine Sodium 5 MCG 1 tablet on an empty stomach Orally Once a day for 90 days Levothyroxine Sodium 50 MCG 1 tablet in the morning on an empty stomach Orally Once a day for 90 days Progress Notes * RICKETTSVictorinoDOB:[birth year] (84 yo M)Acc No.[id number]:12/31/2024 Patient: Victorino GUEVARA :1940 A ge:84 Y S ex:Male Address:[address] [place] [address], [id number] * Refills Refill Levothyroxine Sodium Tablet, 50 MCG, Orally, 90 Tablet, 1 tablet in the morning on an empty stomach, Once a day, 90 days, Refills=0 Refill Liothyronine Sodium Tablet, 5 MCG, Orally, 90 Tablet, 1 tablet on an empty stomach, Once a day, 90 days, Refills=0 * true * Date: Generated for Mini javier/Eve/Lisa on: 0 02/27/2025 09:21 AM EDT
--- OUTSIDE RECORDS SUMMARY | 2025-01-02 14:34 | XMS_ITS ---
Author Organization The [facility] [place] Address [address] [place] [address] Care Team Providers Care Security Sergeant Name Role Phone ErumJose Primary Care Provider [phone] REASON FOR VISIT labs Medications Medication SIG (Take, Route, Fr equency, Duration) Notes Start Date End Date Status Ranolazine ER 1000 MG 1 tablet Orally Tw ice a day for 90 days Active Encounters Encounter Location Date Provider Diagnosis [facility] [address] [place] [address] 01/02/2025 Jose Danielson Plan Of Treatment Medication Medication Name Sig Start Date Stop Date Notes Ranolazine ER 1000 MG 1 tablet Orally Tw ice a day for 90 days Progress Notes * AMAYA AristidesesDOB:[birth year] (84 yo M)Acc No.[id number]:01/02/2025 Patient: Aristides GUEVARAard :1940 A ge:84 Y S ex:Male Address:[address] [place] [address], [address] * Refills Refill Ranolazine ER Tablet Extended Release 12 Hour, 1000 MG, Orally, 180 Tablet, 1 tablet, Twice a day, 90 days * true * Date: Generated for Bienvenidoi ng/Faxing/eTransmitting on: 0 02/27/2025 09:21 AM EDT
--- OUTSIDE RECORDS SUMMARY | 2025-02-05 10:41 | XMS_ITS ---
Author Organization The [facility] [place] Address [address] [place] [address] Care Team Providers Care Gis Manager Name Role Phone Jose Danielson Primary Care Provider [phone] Jay Doty Unavailable [phone] REASON FOR VISIT Letter/Appointment Encounters Encounter Location Date Provider Diagnosis [facility] [place] [address] [place] [address] 02/05/2025 Jay Doty Plan Of Treatment No Information Progress Notes * SMYTHVictorinoDOB:[birth year] (84 yo M)Acc No.[id number]:02/05/2025 Patient: Victorino GUEVARA :1940 A ge:84 Y S ex:Male Address:[address] [place] [id number] * Addendum: * true * Date: Generated for Mini javier/Eve/eTransmitting on: 0 02/27/2025 09:21 AM EDT
--- OUTSIDE RECORDS SUMMARY | 2025-02-27 09:21 | XMS_ITS | Patient Health Record ---
Author Organization [facility] in [place] Address [address] [place] [address] Care Team Providers Care Billing Coordinator Name Role Phone Jose Danielson Primary Care Provider Jay Doty Kamar [phone] Allergies Allergen (clinical drug ingredient) Drug/Non Drug Allergy documented on EMR Reaction Allergy Type Onset Date Status ciprofloxacin Ciprofloxacin Unknown Drug Allergy Active Penicillin Unknown Drug Allergy Active Results Component Value Reference Range Notes BNP Reviewed date:12/13/2024 06:55:10 PM Interpretation: Performing Lab: Notes/Report: [facility] , NT Pro B Type Natriuretic Pept 131.0 <=1800.0 pg/mL Performing Lab: see note ML - [facility] LB CBC AUTO DIFF Reviewed date:12/13/2024 06:55:10 PM Interpretation: Performing Lab: Notes/Report: [facility] , White Blood Count 6.0 4.0-11.0 10 [...] 3/uL Performing Lab: see note ML - [facility] LB PROF 14(COMP METB) Reviewed date:12/13/2024 06:55:10 PM Interpretation: Performing Lab: Notes/Report: [facility] , Sodium 142 136-145 mmol/L Potassium 4.3 [...] 1.1 Performing Lab: see note ML - [facility] LB PTH, Intact Reviewed date:05/31/2024 12:45:04 PM Interpretation: Performing Lab: Notes/Report: [facility] , PTH, Intact 61 15-65 pg/mL Performed at: - [facility] [address] [id number] [employer]: Lee Bob PhD, Phone: [phone] Performing Lab: see note - [facility] LB URINE T PROTEIN CREAT RATIO Reviewed date:05/30/2024 07:24:41 PM Interpretation: Performing Lab: Notes/Report: [facility] , Total Protein Urine Random 16.5 <=11.9 mg/dL Creatinine Urine Random 84.23 20.00-30 0.00 mg/dL Protein Creatinine Ratio Urine 0.20 Performing Lab: see note ML - [facility] LB URIC ACID SERUM Reviewed date:05/30/2024 07:24:41 PM Interpretation: Performing Lab: Notes/Report: [facility] , Uric Acid 7.5 3.5-7.2 mg/dL Performing Lab: see note ML - [facility] RENAL FUNCTION PANEL Reviewed date:05/30/2024 07:24:41 PM Interpretation: Performing Lab: Notes/Report: [facility] , Sodium 144 136-145 mmol/L Potassium 4.7 [...] g/dL Performing Lab: see note ML - [facility] LB MAGNESIUM Reviewed date:05/30/2024 07:24:41 PM Interpretation: Performing Lab: Notes/Report: [facility] , Magnesium 1.9 1.8-2.4 mg/dL Performing Lab: see note ML - [facility] LB URINE T PROTEIN CREAT RATIO Reviewed date:11/27/2024 04:11:10 PM Interpretation: Performing Lab: Notes/Report: [facility] , Total Protein Urine Random 33.1 <=11.9 mg/dL Creatinine Urine Random 179.73 20.00-30 0.00 mg/dL Protein Creatinine Ratio Urine 0.18 Performing Lab: see note ML - [facility] LB VITAMIN D 25 [place] Reviewed date:11/27/2024 04:11:10 PM Interpretation: Performing Lab: Notes/Report: [facility] , Vitamin D 70.4 <20 ng/mL Vit D deficient 20-<30 ng/mL Vit D insufficient 30-100 ng/mL Vit D sufficient >100 ng/mL Potential Toxicity Performing Lab: see note ML - [facility] LB Occult Blood* Reviewed date:03/29/2024 08:37:00 PM Interpretation: Performing Lab: Notes/Report: [facility] , Occult Blood Positive Performing Lab: see note ML - [facility] LB PSA Total+% Free Reviewed date:03/29/2024 08:37:00 PM Interpretation: Performing Lab: Notes/Report: [facility] , Prostate Specific Ag 6.2 0.0-4.0 ng/mL Brenda ECLIA methodology. According to the [place] [employer], Serum [...] other population of men. Performed at: - [facility] [address] [id number] [employer]r: Lee Bob PhD, Phone: [phone] Performing Lab: see note LC - [facility] LB TSH Reviewed date:03/28/2024 09:25:13 PM Interpretation: Performing Lab: Notes/Report: [facility] , Thyroid Stimulating Hormone 0.837 0.358-3.740 uIU/mL Performing Lab: see note ML - [facility] LB NM brie perf SPECT rest str Reviewed date:12/19/2024 09:04:16 PM Interpretation: Performing Lab: Notes/Report: Source Facility: [facility] [place] [address] Nuclear Medicine Report Signed Patient: GLADYS SMYTH MR#: [id number] : 1940 Acct:[id number] Age/Sex: 84 / M ADM Date: 12/12/24 Loc: CARD Attending Dr: Tray Danielson M.D. Ordering Physician: Tray Danielson M.D. Date of Service: 12/12/24 Procedure(s): NM brie perf SPECT rest str Accession Number(s): [id number] cc: Tray Danielson M.D. Patient Name: GLADYS SMYTH MR#: [id number] : 1940 Exam Date: 12/12/2024 Ordering Doctor: DR TRAY DANIELSON . RADIOLOGY REPORT PROCEDURE: NM BRIE PERF [...] the study was pending per attending physician [facility] . For more details please see separate [...] Signed By: 12/18/24 1543 DD/ 1542 TD/TT: [employer]: [place] [address] Nuclear Medicine Report Signed Patient: CURTIS SMYTH MR#: [id number] : 1940 Acct:[id number] Age/Sex: 84 / M ADM Date: 12/12/24 Loc: CARD Attending Dr: Shereen Danielson M.D. Ordering Physician: Tray Danielson M.D. Date of Service: 12/12/24 Procedure(s): NM brie perf SPECT rest str Accession Number(s): [id number] cc: Tray Danielson M.D. Patient Name: GLADYS SMYTH MR#: [id number] : 1940 Exam Date: 12/12/2024 Ordering Doctor: DR TRAY DANIELSON . RADIOLOGY REPORT PROCEDURE: NM BRIE PE [...] study was pending pe r attending physician [facility] . For more details please see separate [...] Signed By: 12/18/24 1543 DD/ 1542 TD/TT: [employer]: US renal BI Reviewed date:12/25/2024 06:55:02 PM Interpretation: Performing Lab: Notes/Report: Source Facility: [place] [address] Ultrasound Report Signed Patient: GLADYS SMYTH MR#: [id number] : 1940 Acct:[id number] Age/Sex: 84 / M ADM Date: 12/25/24 Loc: US Attending Dr: Tray Danielson M.D. Ordering Physician: Tray Danielson M.D. Date of Service: 12/25/24 Procedure(s): US renal BI Accession Number(s): [id number] cc: Tray Danielson M.D. [place] [address] Patient Name: GLADYS SMYTH MRN: [id number] date: 1940 Sex: M Assigned Patient Location: US Current Patient Location: US Accession/Order Number: [id number] Exam Date: 12/25/2024 11:16 Report Date: 12/25/2024 11:20 At the request of: TRAY DANIELSON MD Procedure: US renal BI BILATERAL RENAL [...] Hui M.D. 12/25/2024 11:20 AM Dictation Location: [place] [address] Electronically authenticated by: [id number] Y Date: 12/25/2024 11:20 Dictated By: Anna Hui M.D. Signed By: 12/25/24 1123 DD/ 1120 TD/TT: [employer]: [place] [address] Ultrasound Report Signed Patient: CURTIS SMYTH MR#: [id number] : 1940 Acct:[id number] Age/Sex: 84 / M ADM Date: 12/25/24 Loc: US Attending Dr: Shereen Danielson M.D. Ordering Physician: Tray Danielson M.D. Date of Service: 12/25/24 Procedure(s): US shar al JANN Accession Number(s): [id number] cc: Tray Danielson M.D. [address] [address] Patient Name: GLADYS SMYTH MRN: [id number] date: 1940 Sex: M Assigned Patient Location: Current Patient Location: US Accession/Order Numb er: [id number] Exam Date: 12/25/2024 11:16 Report Date: 12/25/2024 11:20 At the request of: TRAY DANIELSON MD Procedure: US renal BI BILATERAL RENAL [...] contour or intralumi nal abnormalities are seen. S/US renal BI IMPRESSION: LEFT RENAL ATROPHY. RIGHT RENAL CYST AND SUSPECTED NEPHROLITHIASIS. NO OBSTRUCTIVE UROPATHY. Impression dictated by: Anna Hui M.D. 12/25/2024 11:20 AM Dictation Location: [place] [address] Electronically authenticated by: [id number] Y Date: 12/25/2024 11:20 Dictated By: Anna Hui M.D. Signed By: 12/25/24 1123 DD/ 1120 TD/TT: [employer]: PROF [place](COMP METB) Reviewed date:03/28/2024 09:25:13 PM Interpretation: Performing Lab: Notes/Report: [facility] , Sodium 138 136-145 mmol/L Potassium 4.8 [...] 1.0 Performing Lab: see note ML - [facility] FREE T4 Reviewed date:03/28/2024 09:25:13 PM Interpretation: Performing Lab: Notes/Report: [facility] T4 1.12 0.76-1.46 ng/dL Performing Lab: see note - [facility] LB ITP Reviewed date:02/25/2025 02:05:23 PM Interpretation: Performing Lab: Notes/Report: Source Facility: [place] [address] Cardiac Rehab Report Signed Patient: GLADYS SMYTH MR#: [id number] : 1940 Acct:[id number] Age/Sex: 84 / M ADM Date: 02/20/25 Loc: CR Attending Dr: JENNIFER LEYVA Ordering Physician: JENNIFER LEYVA Date of Service: 02/20/25 Procedure(s): ITP Accession Number(s): [id number] cc: [facility] Test Date: 2025-02-20 Pat Name: GLADYS SMYTH Department: Room: - Gender: Male Button Reclaimer: : 1940 Requested By: JENNIFER LEYVA M.D. Order Number: [id number] Katja MD: Mundo Lee Interpretive Statements Session Date: Electronically Signed On 02-22-2025 13:28:36 EDT by Mundo Lee Dictated By: Mundo Lee M.D. Signed By: 02/22/25 1328 02/22/25 1328 DD/ 1513 TD/TT: [employer]: [place] [address] Cardiac Rehab Report Signed Patient: CURTIS SMYTH MR#: [id number] : 1940 Acct:[id number] Age/Sex: 84 / M ADM Date: 02/20/25 Loc: CR Attending Dr: JENNIFER LEYVA Ordering Physician: JENNIFER LEYVA Date of Service: 02/20/25 Procedure(s): ITP Accession Number(s): [id number] cc: [facility] Test Date: 2025-02-20 Pat Name: GLADYS SMYTH Department: 97 Room: - Gender: Male Button Reclaimer: : 1940 Requested By: JENNIFER LEYVA M.D. Order Number: [id number] Katja MD: Mundo Lee Interpretive Statements Session Date: Electronically Jaqui d On 02-22-2025 13:28:36 EDT by Mundo Lee Dictated By: Mundo Lee M.D. Signed By: 02/22/258 02/22/25 1328 DD/ 1513 TD/TT: [employer]: VIV T3 Reviewed date:03/28/2024 09:25:13 PM Interpretation: Performing Lab: Notes/Report: [facility] , Free T3 2.43 2.18-3.98 pg/mL Performing Lab: see note - [facility] LB CREATININE Reviewed date:09/12/2024 07:49:34 PM Interpretation: Performing Lab: Notes/Report: [facility] , Creatinine 1.71 0.70-1.30 mg/dL Estimated GFR ( Yana 47 >=60 mL/min/1.73m 2 Estimated GFR (Non- Lisa 39 >=60 mL/min/1.73m 2 Performing Lab: see note ML - [facility] LB LIPID PROFILE Reviewed date:03/28/2024 09:25:13 PM Interpretation: Performing Lab: Notes/Report: [facility] , Triglycerides 85 <=150 mg/dL Cholesterol 104 [...] RISK Performing Lab: see note ML - [facility] LB GLYCOHEMOGLOBIN A1C Reviewed date:03/28/2024 09:25:13 PM Interpretation: Performing Lab: Notes/Report: [facility] , Glycohemoglobin A1C 6.9 4.5-6.2 % ADA RECOMMENDED LIMIT 4.0 - 6.0 ADA THERAPEUTIC TARGET < 7.0 ACTION SUGGESTED > 7.0 Estimated Average Glucose 151 Performing Lab: see note - [facility] LB CBC AUTO DIFF Reviewed date:03/28/2024 09:25:13 PM Interpretation: Performing Lab: Notes/Report: [facility] , White Blood Count 6.3 4.0-11.0 10 [...] 0.00-0.03 10 3/uL Performing Lab: see note - [facility] LB COVID-19, Flu A+B IH Reviewed date:08/20/2024 02:02:41 PM Interpretation: Performing Lab: Notes/Report: COVID - FLU A + FLU B - Control + MAGNESIUM Reviewed date:11/27/2024 04:11:10 PM Interpretation: Performing Lab: Notes/Report: [facility] , Magnesium 1.8 1.8-2.4 mg/dL Performing Lab: see note - [facility] CT abdomen pelvis w con Reviewed date:09/12/2024 07:49:34 PM Interpretation: Performing Lab: Notes/Report: Source Facility: [place] [address] CT Scan Report Signed Patient: LGADYS SMYTH MR#: [id number] : 1940 Acct:[id number] Age/Sex: 84 / M ADM Date: 09/12/24 Loc: LAB Attending Dr: Tray Danielson M.D. Ordering Physician: Tray Danielson M.D. Date of Service: 09/12/24 Procedure(s): CT abdomen pelvis w con Accession Number(s): [id number] cc: Tray Danielson M.D. [place] [address] Patient Name: GLADYS SMYTH MRN: [id number] date: 1940 Sex: M Assigned Patient Location: LAB Current Patient Location: LAB Accession/Order Number: [id number] Exam Date: 09/12/2024 12:26 Report Date: 09/12/2024 12:33 At the request of: TRAY DANIELSON MD Procedure: CT abdomen pelvis w con [...] Dread Bowers Jr.OManohar09/12/2024 12:33 PM Dictation Location: [place] [address] Electronically authenticated by: [id number] Y Date: 09/12/2024 12:33 Dictated By: Ifeanyi Perez M.D. Signed By: 09/12/24 1236 DD/ 1233 TD/TT: [employer]: [place] [address] CT Scan Report Signed Patient: CURTIS SMYTH MR#: [id number] : 1940 Acct:[id number] Age/Sex: 84 / M ADM Date: 09/12/24 Loc: LAB Attending Dr: Shereen Danielson M.D. Ordering Physician: Tray Danielson M.D. Date of Service: 09/12/24 Procedure(s): CT abd omen pelvis w con Accession Number(s): [id number] cc: Tray Danielson M.D. The [address] [address] Patient Name: GLADYS SMYTH MRN: [id number] date: 1940 Sex: M Assigned Patient Location: LAB Current Patient Location: LAB Accession/Order Numb er: [id number] Exam Date: 09/12/2024 12:26 Report Date: 09/12/2024 12:33 At the request of: TRAY DANIELSON MD Procedure: CT abdome n pelvis w [...] free fluid or lymphadenopathy.[ Abd wall/Bones:No ac [place] findings. Osseous structures demonstrate degenerative change.[ C T/CT abdomen pelvis w con IMPRESSION: Interval improvement of the inflammatory changes in the region of the appendix. The append ix still appears to BE fluid filled without gross distention or significant inflammatory change. Mucocele cannot BE excluded. Impression dictated by: Ifeanyi Perez Jr., DreadOManohar09/12/2024 12:33 PM Dictation Location: [place] [address] Electronically authenticated by: [id number] Y Date: 09/12/2024 12:33 Dictated By: Ifeanyi Perez M.D. Signed By: 09/12/24 1236 DD/ 1233 TD/TT: [employer]: renal BI Reviewed date:06/11/2024 02:13:25 PM Interpretation: Performing Lab: Notes/Report: Source Facility: [place] [address] Ultrasound Report Signed Patient: GLADYS SMYTH MR#: [id number] : 1940 Acct:[id number] Age/Sex: 83 / M ADM Date: 06/11/24 Loc: US Attending Dr: Srinivas Gonzalez M.D. Ordering Physician: Srinivas Gonzalez M.D. Date of Service: 06/11/24 Procedure(s): US renal BI Accession Number(s): [id number] cc: Srinivas Gonzalez M.D.; Tray Danielson M.D. [place] [address] Patient Name: GLADYS SMYTH MRN: [id number] date: 1940 Sex: M Assigned Patient Location: Current Patient Location: US Accession/Order Number: [id number] Exam Date: 06/11/2024 07:00 Report Date: 06/11/2024 07:48 At the request of: SRINIVAS GONZALEZ Procedure: US renal BI EXAMINATION: US renal [...] Signed By: 06/11/24 0751 DD/ 0748 TD/TT: [employer]: [place] [address] Ultrasound Report Signed Patient: CURTIS SMYTH MR#: [id number] : 1940 Acct:[id number] Age/Sex: 83 / M ADM Date: 06/11/24 Loc: US Attending Dr: Lisa Maza Ordering Physician: Srinivas Gonzalez M.D. Date of Service: 06/11/24 Procedure(s): US shar al BI Accession Number(s): [id number] cc: Srinivas Gonzalez M.D; Tray Danielson M.D. [address] [address] Patient Name: GLADYS SMYTH MRN: [id number] date: 1940 Sex: M Assigned Patient Location: Current Patient Location: US Accession/Order Numb er: [id number] Exam Date: 07:00 Report Date: 06/11/2024 07:48 At the request of: SRINIVAS GONZALEZ Procedure: US renal BI EXAMINATION: US renal [...] Signed By: 06/11/24 0751 DD/ 0748 TD/TT: [employer]: XR ankle LT min 3V Reviewed date:06/11/2024 02:13:25 PM Interpretation: Performing Lab: Notes/Report: Source Facility: [place] [address] XRay Report Signed Patient: GLADYS SMYTH MR#: [id number] : 1940 Acct:[id number] Age/Sex: 83 / M ADM Date: 06/07/24 Loc: RAD Attending Dr: Tray Danielson M.D. Ordering Physician: Tray Danielson M.D. Date of Service: 06/07/24 Procedure(s): XR ankle LT min 3V Accession Number(s): [id number] cc: Tray Danielson M.D. [place] [address] Patient Name: GLADYS SMYTH MRN: [id number] date: 1940 Sex: M Assigned Patient Location: [facility] Current Patient Location: Accession/Order Number: [id number] Exam Date: 06/07/2024 12:17 Report Date: 06/11/2024 07:14 At the request of: TRAY DANIELSON Procedure: XR ankle LT min 3V PROCEDURE: [...] M.D. Signed By: 06/11/24716 DD/ 3 TD/TT: [employer]: The [address] [address] XRay Report Signed Patient: CURTIS SMYTH MR#: [id number] : 1940 Acct:[id number] Age/Sex: 83 / M ADM Date: 06/07/24 Loc: RAD Attending Dr: Shereen Danielson M.D. Ordering Physician: Tray Danielson M.D. Date of Service: 06/07/24 Procedure(s): XR ank le LT min 3V Accession Number(s): [id number] cc: Tray Danielson M.D. The [address] [address] Patient Name: GLADYS SMYTH MRN: [id number] date: 1940 Sex: M Assigned Patient Location: [facility] Current Patient Location: US Accession/Order Numb er: [id number] Exam Date: 12:17 Report Date: 06/11/2024 07:14 At the request of: TRAY DANIELSON Procedure: XR ankle LT min 3V PROCEDURE: [...] M.D. Signed By: 06/11/24716 DD/ 3 TD/TT: [employer]: CBC no Diff (Hemogram) Reviewed date:05/30/2024 07:24:41 PM Interpretation: Performing Lab: Notes/Report: [facility] , White Blood Count 6.8 4.0-11.0 10 [...] fL Performing Lab: see note ML - [facility] VITAMIN D 25 [place] Reviewed date:05/30/2024 07:24:41 PM Interpretation: Performing Lab: Notes/Report: [facility] , Vitamin D 64.6 <20 ng/mL Vit D deficient 20-<30 ng/mL Vit D insufficient 30-100 ng/mL Vit D sufficient >100 ng/mL Potential Toxicity Performing Lab: see note ML - [facility] LB RENAL FUNCTION PANEL Reviewed date:11/27/2024 04:11:10 PM Interpretation: Performing Lab: Notes/Report: [facility] , Sodium 145 136-145 mmol/L Potassium 4.7 [...] 3.4-5.0 g/dL Performing Lab: see note - [facility] LB UA RANDOM W or MICROSCOPIC Reviewed date:11/27/2024 04:11:10 PM Interpretation: Performing Lab: Notes/Report: [facility] , Color Urine YELLOW YELLOW Clarity Urine CLEAR CLEAR Specific [place] Urine 1.025 1.005-1.025 pH Urine 6.0 5.0-9.0 [...] #/LPF Performing Lab: see note ML - [facility] UA RANDOM W or MICROSCOPIC Reviewed date:05/30/2024 07:24:41 PM Interpretation: Performing Lab: Notes/Report: [facility] , Color Urine LT. YELLOW YELLOW Clarity Urine CLEAR CLEAR Specific [place] Urine 1.015 1.005-1.025 pH Urine 6.0 5.0-9.0 [...] #/LPF Performing Lab: see note ML - [facility] LB URIC ACID SERUM Reviewed date:11/27/2024 04:11:10 PM Interpretation: Performing Lab: Notes/Report: [facility] , Uric Acid 6.8 3.5-7.2 mg/dL Performing Lab: see note ML - [facility] LB CBC no Diff (Hemogram) Reviewed date:11/27/2024 04:11:10 PM Interpretation: Performing Lab: Notes/Report: [facility] , White Blood Count 6.0 4.0-11.0 10 [...] 10.7 9.5-13.5 fL Performing Lab: see note - [facility] LB PTH, Intact Reviewed date:11/28/2024 09:18:57 PM Interpretation: Performing Lab: Notes/Report: [facility] , PTH, Intact 40 15-65 pg/mL Performed at: [address] [id number] [employer]: Lee Bob PhD, Phone: [phone] Performing Lab: see note - [facility] LB Troponin I High Sensitivity Reviewed date:12/13/2024 06:55:10 PM Interpretation: Performing Lab: Notes/Report: [facility] , Troponin I High Sensitivity 6.2 4.0-76.1 pg/mL CUT-OFF POINTS HAVE BEEN ESTABLISHED BASED ON THE FOURTH UNIVERSAL DEFINITION OF MYOCARDIAL INFARCTION. THE UPPER REFERENCE LIMIT (URL) OF TROPONIN, DEFINED THE 99TH PERCENTILE OF cTnI DISTRIBUTION IN A REFERENCE POPULATION, HAS BEEN CONFIRMED THE DECISION THRESHOLD FOR IN DIAGNOSIS. 99TH PERCENTILE = 76.2 PG/ML NOTE: HIGH-SENSITIVITY TROPONIN ASSAY IS NOT INTENDED TO BE USED IN ISOLATION BUT SHOULD BE INTERPRETED IN CONJUNCTION WITH OTHER DIAGNOSTIC AND CLINICAL INFORMATION. Performing Lab: see note - [facility] LB CA echo doppler complete Reviewed date:12/26/2024 07:07:14 PM Interpretation: Performing Lab: Notes/Report: Source Facility: [facility]-[address] [place] [address] [place] [address] Cardiology Report Signed Patient: GLADYS SMYTH MR#: [id number] : 1940 Acct:[id number] Age/Sex: 84 / M ADM Date: 12/26/24 Loc: CARD Attending Dr: Tray Danielson M.D. Ordering Physician: Tray Danielson M.D. Date of Service: 12/26/24 Procedure(s): CA echo doppler complete Accession Number(s): [id number] cc: Tray Danielson M.D. Patient Name: GLADYS SMYTH MR#: [id number] : 1940 Exam Date: 12/26/2024 Ordering Doctor: DR TRAY DANIELSON . ECHOCARDIOGRAM REPORT PROCEDURE: CA ECHO DOPPLER [...] M.D. Signed By: 12/26/241821 DD/ 20 TD/TT: [employer]: [place] [address] Cardiology Report Signed Patient: CURTIS SMYTH MR#: [id number] : 1940 Acct:[id number] Age/Sex: 84 / M ADM Date: 12/26/24 Loc: CARD Attending Dr: Shereen Danielson M.D. Ordering Physician: Tray Danielson M.D. Date of Service: 12/26/24 Procedure(s): CA ech o doppler complete Accession Number(s): [id number] cc: Tray Danielson M.D. Patient Name: GLADYS SMYTH MR#: [id number] : 1940 Exam Date: 12/26/2024 Ordering Doctor: DR TRAY DANIELSON . ECHOCARDIOGRAM REPORT PROCEDURE: CA ECHO DOPPLER COMPLETE INDICATIONS: Coronar y artery disease COMPARISON: None. DESCRIPTION: COMPLET E ECHOCARDIOGRAM Real-time transthoracic echocardiography wit h 2D, M-mode, spectral and color flow Doppler performed. QUALITY: Technical quality was adequate. LEFT VENTRICLE: Nor mal chamber size. Borderline left ventricular hypertrophy. Global [...] M.D. Signed By: 12/26/241821 DD/ 20 TD/TT: [employer]: PROF WU 8 (KIESHA REES) Reviewed date:01/02/2025 06:35:37 PM Interpretation: Performing Lab: Notes/Report: [facility] , Sodium 144 136-145 mmol/L Potassium 5.0 3.5-5.1 mmol/L Chloride 108 98-107 mmol/L Carbon Dioxide 22.8 21.0-32.0 mmol/L Anion Gap 18.2 Glucose 148 74-106 mg/dL Blood Urea Nitrogen 41.0 7.0-18.0 mg/dL Creatinine 2.32 0.70-1.30 mg/dL Estimated GFR ( Yana 33 >=60 mL/min/1.73m 2 Estimated GFR (Non- Lisa 27 >=60 mL/min/1.73m 2 BUN Creatinine Ratio 17.7 Calcium 8.7 8.5-10.1 mg/dL Performing Lab: see note ML - [facility] Reason For Referral No Information Medications Medication SIG (Take, Route, Frequency, Duration) Notes Start Date End Date Status Accu-Chek Nevaeh Plus - USE 1 STRIP ONCE DAILY TO TEST BLOOD SUGAR IN VITRO for 90 Active Nitrostat 0.4 MG as directed Sublingual Active Metoprolol Tartrate 50 MG 1 tablet with food Orally Twice a day Active Magnesium Oxide 400 MG 1 tablet as neede d Orally Once a day Active Ranolazine ER 1000 MG 1 tablet Orally Tw ice a day for 90 days Active Lisinopril 20 MG 1 tablet Orally Once a day Active Levsin/SL 0.125 MG 1 tablet under the t ongue and allow to dissolve as needed Sublingual AC and HS 07/19/2023 Active Ketoconazole 2 % 1 application Cell Stripper Final ally Once a day Active Januvia 100 [...] puffs Inhalation QD for 90 days Active Pioglitazone HCl 15 MG TAKE 1 TABLET BY MOUTH ONCE DAILY for 90 days Active Immunizations Vaccine Route Administration Date Status Comme nts Arexvy Unknown 03/06/2024 Administered Comirnaty Pfizer Syringe Pre-Filled 30 mcg/0.3 mL Unknown 03/06/2024 Administered Flu, Fluad (5578-9470) (02169) 65 yrs+, single-dose syringe IM Intramuscular 03/23/2023 Administered Flu, Fluad (17836) 65 yrs + High Dose Seasonal (1960-8314) Unknown 03/06/2024 Administered Pneumococcal (Prevnar 13) Unknown [...] Status Risk Notes Problem Chronic kidney disease (078994619) Chronic kidney disease, unspecified (N18.9) Active confirmed Problem Morbid obesity (disorder) (756546815) Morbid (severe) obesity due to excess calories (E66.01) Active confirmed Problem Hypocalcemia (8119404) Hypocalcemia (E83.51) Active confirmed Problem Disorder of prostate (46714584) Disorder of prostate, unspecified (N42.9) Active confirmed Problem Weakness (19569272) Weakness (R53.1) Active confirmed Problem Onychomycosis caused by dermatophyte (255872104) OM (onychomycosis) (B35.1) Active confirmed Problem Hyperlipidemia (79710067) Hyperlipidemia (E78.5) Active confirmed Problem Hypertension (69062321) Hypertension (I10) Active confirmed Problem COPD - Chronic obstructive pulmonary disease (48585167) COPD (chronic obstructive pulmonary disease) (J44.9) Active confirmed Problem Hypothyroidism (46649755) Hypothyroidism (E03.9) Active confirmed Problem Carpal tunnel syndrome (95764246) Carpal tunnel syndrome (G56.00) Active confirmed Problem Coronary artery disease (09821865) CAD (coronary artery disease) (I25.10) Active confirmed Problem Coronary artery disease (76977918) Coronary artery disease (I25.10) Active confirmed Problem Left ventricular hypertrophy (95193250) Left ventricular hypertrophy (I51.7) Active confirmed Problem Diabetes mellitus type 2 (disorder) (36468148) DM2 (diabetes mellitus, type 2) (E11.9) Active confirmed Problem Kidney stone (13781970) Kidney stone (N20.0) Active confirmed Problem Nephrolithiasis (10400690) Nephrolithiasis (N20.0) Active confirmed Problem Right lower quadrant pain (937863840) Right lower quadrant abdominal pain (R10.31) Active confirmed Problem Acquired hypothyroidism (376480857) Acquired hypothyroidism (E03.9) Active confirmed Problem Appendicitis (39939483) Appendicitis (K37) Active confirmed Problem Obstructive uropathy (4465752) Obstructive uropathy (N13.9) Active confirmed Problem Pre-surgery evaluation (700282761) Pre-op exam (Z01.818) Active confirmed Problem Diverticulitis (91072589) Diverticulitis (K57.92) Active confirmed Problem Hemorrhoids (86928630) Hemorrhoids (K64.9) Active confirmed Problem Pyelonephritis (50841479) Pyelonephritis (N12) Active confirmed Problem Arthralgia of the ankle and/or foot (762201872) Left ankle pain (M25.572) Active confirmed Problem Acute sinusitis (87134827) Acute sinus infection (J01.90) Active confirmed Problem Benign prostatic hyperplasia (750591019) Benign prostatic hyperplasia (N40.0) Active confirmed Problem Overweight (783313246) Over weight (E66.3) Active confirmed Problem Dyshidrotic eczema (588978937) 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) Active confirmed Problem Hydronephrosis (70554241) Hydronephrosis (N13.30) Active confirmed Problem Ex-tobacco user (finding) (089062352) History of tobacco abuse (Z87.891) Active confirmed Problem Old myocardial infarction (4154200) History of ST elevation myocardial infarction (STEMI) (I25.2) Active confirmed Problem Adenocarcinoma of prostate (230390670) Adenocarcinoma of prostate (C61) Active confirmed Problem Cholesteatoma (936992) Cholesteatoma (H71.90) Active confirmed Problem Shoulder impingement syndrome (267667943) Shoulder impingement syndrome (M75.40) Active confirmed Problem Benign neoplasm of colon (29231775) Colon polyp, hyperplastic (K63.5) Active confirmed Problem Leukocytosis (707905868) Elevated WBCs (D72.829) Active confirmed Problem Essential hypertension (49624962) BP (high blood pressure) (I10) Active confirmed Problem Acute nontraumatic kidney injury (762208287182628) Acute nontraumatic kidney injury (N17.9) Active confirmed Problem 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 confirmed Problem Diabetes mellitus (26831598) Diabetes mellitus (E11.9) Active confirmed Problem Chronic kidney disease stage 3B (disorder) (163379511) Chronic kidney disease, stage 3b (N18.32) Active [...] N/A Encounters Encounter Location Date Provider Diagnosis [facility] [address] [facility] [place] [address] 12/25/2024 Jose nissa [facility] [address] [facility] [place] [address] 12/26/2024 Jose Danielson [facility] [address] [facility] [place] [address] 12/31/2024 Jose Danielson [facility] [address] [facility] [place] [address] 01/02/2025 Jose nissa [facility] [address] [place] [address] 02/05/2025 Jay Doty [facility] [address] [facility] [place] [address] 03/29/2024 Jose Danielson [facility] [address] [facility] [place] [address] 06/11/2024 Jose Danielson [facility] [address] [facility] [place] [address] 09/06/2024 Jose Danielson Encounter for other preprocedural examination Z01.818 [facility] [address] [facility] [place] [address] 09/12/2024 Jose Danielson [facility] [address] [facility] [place] [address] 12/13/2024 Jose Danielson [facility] [address] [facility] [place] [address] 12/19/2024 Jose Danielson [facility] [address] [facility] [place] [address] 02/28/2024 Jose nissa [facility] [address] [facility] [place] [place] [address] 03/26/2024 Jose Danielson Wellness examination Z01.89 [facility] [address] [facility] [place] [address] 03/28/2024 Jose Chany [facility] [address] [place] [address] 06/07/2024 Jose Hoy Left ankle pain M25. 572 ; DM2 (diabetes mellitus, type 2) E11.9 ; Hypothyroidism E03.9 ; Hyperlipidemia E78.5 ; COPD (chronic obstructive pulmonary disease) J44.9 and BP (high blood pressure) I10 [facility] [address] [place] [address] 04/18/2024 Jay Doty COPD (chronic obstructive pulmonary disease) J44.9 and History of tobacco abuse Z87.891 [facility] [address] [place] [address] 03/07/2024 Jose Chany Onychomycosis B35.1 ; DM2 (diabetes mellitus, type 2) E11.9 ; Hypothyroidism E03.9 ; Hypertension I10 and COPD (chronic obstructive pulmonary disease) J44.9 [address] [place] [address] 08/03/2024 Jose Danielson Chronic kidney disea se, stage 3b N18.32 ; DM2 (diabetes mellitus, type 2) E11.9 ; Diabetes mellitus E11.9 ; Morbid (severe) obesity due to excess calories E66.01 ; 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 ; COPD (chronic obstructive pulmonary disease) J44.9 and De Quervain's disease (tenosynovitis) M65.4 [address] [place] [address] 08/20/2024 Jose Hoy Fever R50.9 and Acut e bronchitis, unspecified organism J20.9 [address] [place] [address] 09/05/2024 Jose Chany DM2 (diabetes mellit us, type 2) E11.9 ; Hypothyroidism E03.9 ; Hyperlipidemia E78.5 ; Hypertension I10 and Appendicitis K37 [facility] [address] [place] [address] 12/06/2024 Jose Chany DM2 (diabetes mellit us, [...] vaporizer to help keep the drainage moist. Lrxr-uoh-yjhaecb Nasal Saline may help the stuffy and runny nose. Use Ibuprofen and or Tylenol as needed for fever, chills, body aches or pain. Children 5 years old should not be given dipb-zcb-xjcstzz cough and cold medications such as guaifenesin and dextromethorphan. If you're over age 5, you may try hpci-ion-bxlduqg cold medications such as guaifenesin and dextromethorphan, [...] Diabetes mellitus (ICD-10 - E11.9) likely up [facility] sgteroids - 112 yesterday 09/05/2024 Hyperlipidemia [...] w/eGFR CKD-EPI 2024 CBC WITH DIFF 09/05/2024 Insurance Providers Payer Name Payer Address Payer Phone Subscriber Number Group Number Insured Name Patient Relationship to Insured Coverage Start Date Coverage End Date [employer]ARE [address] [address] [place] [address] [id number] Smyth Gladys Self - patient is the insured 3 [...] drained appendix 2023 Colonoscopy- Dr Alvarado 10/18/23 Right Heart Cath 12/27/24 Hospitalization History Reason Date(Month/Year) Appendicitis 06/2023 Kidney Failure 08/19
--- OUTSIDE RECORDS SUMMARY | 2025-02-27 09:22 | XMS_ITS | Encounter Summary ---
Author Organization [facility] Address [address] [place] [address] Care Team Providers Care Barometers Calibrator Name Role Phone Jose Danielson MD Primary Care Provider [phone] Encounter Details Date Type Department Care Team [...] EDT Narrative 09/27/2023 4:07 PM EDT The [address] [address] [address] Scan Report Signed Patient: GLADYS SMYTH MR#: [id number] : 1940 Acct:[id number] Age/Sex: 83 / M ADM Date: 09/27/23 Loc: CT Attending Dr: Jennifer Alvarado D.O. Ordering Physician: Jennifer Alvarado D.O. Date of Service: 09/27/23 Procedure(s): CT abdomen pelvis w con Accession Number(s): [id number] cc: Jose Danielson M.D. [place] [place] [id number] Patient Name: GLADYS SMYTH MRN: [id number] date: 1940 Sex: M Assigned Patient Location: CT Current Patient Location: CT Accession/Order Number: [id number] Exam Date: 09/27/2023 09:05 Report Date: 09/27/2023 [...] Signed By: 09/27/23 1607 DD/ 1605 TD/TT: Afternoon Babysitter: Procedure Note Radiology, Radiologist, - 09/27/[address] [address] [address] Scan Report Signed Patient: GLADYS SMYTH MMR#: [id number] : 1940cct:[id number] Age/Sex: 83 / MADM Date: 09/27/23 Loc: CT Attending Dr: Jennifer Alvarado D.O. Ordering Physician: Jennifer Alvarado D.O. Date of Service: 09/27/23 Procedure(s): CT abdomen pelvis w con Accession Number(s): [id number] cc: Jose Danielson M.D. The [address] [address] Patient Name: GLADYS SMYTH MRN: [id number] date: 1940 Sex: M Assigned Patient Location: CT Current Patient Location: CT Accession/Order Number: [id number] Exam Date: 09/27/2023 09:05 Report Date: 09/27/2023 [...] M.D. Signed By:09/27/23 1607 DD/ 1605 TD/TT: Afternoon Babysitter: us Jennifer Alvarado DO [facility] Final Result documented in this encounter Visit Diagnoses Not on filedocumented in this encounter Care Teams Barometers Calibrator Relationship Specialty Start Date End Date Jose Danielson MD PCP - General Family Medicine 09/12/23 documented as of this encounter
--- OUTSIDE RECORDS SUMMARY | 2025-02-27 09:22 | XMS_ITS | Encounter Summary ---
Author Organization [facility] Address [address] [place] [address] Care Team Providers Care Safety Patrol Officer Name Role Phone Tray Alfaro MD Primary Care Provider [phone] Encounter Details Date Type Department Care Team (Late st Contact Info) Description 07/29/2023 Clinisync Result Encounter [facility] Unsolicited Tesha Dowell PA [address] [place] [address] Dr [address] [place] [id number] Social History Tobacco Use Types Packs/Day Years [...] EST Narrative 2023 5:55 AM EST The [address] [address] Electrocardiograph Report Signed Patient: GLADYS SMYTH MR#: [id number] : 1940 Acct:[id number] Age/Sex: 82 / M ADM Date: 07/29/23 Loc: [place] 230-[address]: Tray Alfaro M.D. Ordering Physician: Tesha Dowell Date of Service: 07/29/23 Procedure(s): ECG 12 lead Accession Number(s): [id number] cc: [facility] Test Date: 2023-07-29 Pat Name: GLADYS SMYTH Department: Room: - Gender: Male Smoking Tobacco Packer Hand: : 1940 Requested By: TRAY ALFARO Order Number: [id number] Reading MD: TRAY ALFARO Measurements Intervals [place] Rate: 82 P: 6 MO: 170 QRS: 27 QRSD: 88 T: 51 QT: 352 QTc: 391 Interpretive Statements 1100 Sinus rhythm Electronically Signed On 2023 5:55:01 EST by TRAY ALFARO Dictated By: Tray Alfaro M.D. Signed By: 07/31/23554 DD/ 144 TD/TT: Lehr Cutter: Procedure Note Radiology, Radiologist, - 2023 [place] [address] Electrocardiograph Report Signed Patient: GLADYS SMYTH MMR#: [id number] : 1940cct:[id number] Age/Sex: 82 / MADM Date: 07/29/23 Loc: [place] 230-[address]: Tray Alfaro M.D. Ordering Physician: Tesha Dowell Date of Service: 07/29/23 Procedure(s): ECG 12 lead Accession Number(s): [id number] cc: [facility] Test Date: 2023-07-29 Pat Name: GLADYS SMYTH Department: Room: - Gender: Male Smoking Tobacco Packer Hand: : 1940 Requested By: TRAY ALFARO Order Number: [id number] Reading MD: TRAY ALFARO Measurements Intervals [place] Rate: 82 P: 6 MO: 170 QRS: 27 QRSD: 88 T: 51 QT: 352 QTc: 391 Interpretive Statements 1100 Sinus rhythm Electronically Signed On 2023 5:55:01 EST by TRAY ALFARO Dictated By: Tray Alfaro M.D. Signed By:07/31/23554 DD/ 1446 TD/TT: Lehr Cutter: Tesha PEDRAZA [facility] Final Result documented in this encounter Visit Diagnoses Not on filedocumented in this encounter Care Teams Safety Patrol Officer Relationship Specialty Start Date End Date Tray Alfaro MD PCP - General Family Medicine 09/12/23 documented as of this encounter
--- OUTSIDE RECORDS SUMMARY | 2025-02-27 09:22 | XMS_ITS | Clinical Summary ---
Author Organization [facility] Address [address] [place] [address] Phone Care Team Providers Care Channel Lip Wetter Name Role Phone Unavailable Primary Care Provider [...]
--- OUTSIDE RECORDS SUMMARY | 2025-02-27 09:22 | XMS_ITS | Clinical Summary ---
Author Organization [facility] Address [address] [place] [address] Care Team Providers Care High School Science Tutor Name Role Phone Jose Danielson MD Primary Care Provider [phone] Allergies Active Allergy Reactions Criticality Noted Date [...] Risk 10.1 % 30-day risk of , CT, or cardiac arrest EKG at last visit [...] Due Date Last Done Comments Influenza Vaccine (#1) 2025 , 04/18/2020, 04/04/2019, Additional history exists Pneumococcal Vaccine: 65+ Years Completed 3, 04/05/2017 Insurance [employer] MEDICARE Care Teams High School Science Tutor Relationship Specialty Start Date End Date Jose Danielson MD PCP - General Family Medicine 09/12/23
--- OUTSIDE RECORDS SUMMARY | 2025-02-27 09:46 | XMS_ITS | CCD ---
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 Name Role Phone Jose Alfaro Primary Care Physician Alicia León Unavailable MD Jose Alfaro Primary Care Provider MD Hiral Interiano Admit Provider MD Hiral Interiano Attending Provider [phone] ALISHA Mckinleyher Other Provider Unavailable DO Lizzy Lin Other Provider MD Niharika Elias Other Provider MD Joel Larkin Other Provider MD Isidro Dow Other Provider MD Peter Manuel Other Provider ILA Borges Other Provider MD Peyton Barragan Other Provider MD Myesha Solo Other Provider MD Skinny Kiser Other Provider Belkis [facility] Jen Mckee Other Provider MD Aaliyah Mitchell Other Provider MD Alicia León Other Provider MD Milton Braun Other Provider MD Ni Olivares Other Provider MD Yogesh Omalley Other Provider MD Kiran Eldridge Jr Other Provider MD Fátima Ivey Other Provider MD Jennifer Villarreal Other Provider [phone] MD Bipin Barclay Other Provider BRIT, [...] Unavailable HOY ., DR FELIZ Admitting Unavailable [place], DR TYLER Coello Consulting Unavailable BERNA, IRIS [...] Unavailable MD Jose Alfaro Primary Care Provider [phone] MD Ni Olivares Attending Provider MD Jose Alfaro Primary Care Provider [phone] NON STAFF Attending Provider Unavailable JENNIFER DRISCOLL Attending Unavailable JENNIFER DRISCOLL Attending Unavailable CookRidgeNi P Admitting Unavailable Hoy, Jose M Primary Care Unavailable CookNi P Attending Unavailable Hoy, Jose M Primary Care Unavailable Cook, Ni P Attending Unavailable Cook, Ni P Admitting Unavailable Hoy, Jose M Primary Care Unavailable Cook, Ni P Attending Unavailable Cook, Ni P Admitting Unavailable NON STAFF Attending Unavailable NON STAFF Admitting Unavailable Hoy, Jose M Primary Care Unavailable COOK, Ni P Attending Unavailable COOK, Ni P Attending Unavailable COOKNi P Attending Unavailable COOK, Ni P Admitting Unavailable COOK, Ni P Attending Unavailable COOK, Ni P Attending Unavailable COOK, Ni P Admitting Unavailable JENNIFER HUYNH Attending Unavailable JENNIFER HUYNH Attending Unavailable JENNIFER HUYNH Admitting Unavailable JENNIFER HUYNH Attending Unavailable JENNIFER HUYNH Referring Unavailable JENNIFER HUYNH Attending Unavailable Allergies Allergy Classification Reported Allergen(s) Allergy Type Date of Onset Reaction(s) Facility (18 sources) Ciprofloxacin; Translations: [ciprofloxacin] Drug Allergy 08-13-19 Eruption of skin (disorder) [facility] (16 sources) Penicillin; Translations: [penicillin] Drug Allergy Eruption of skin (disorder) [facility] Other (6 sources) Ciprofloxacin Drug Allergy Unknown [facility] Other (10 sources) Penicillins; Translations: [Penicillins] Allergy to substance 06-14-20 [facility] (1 source) Ciprofloxacin Drug Allergy 03-10-20 [facility]ository (3 sources) levothyroxine; Translations: [levothyroxine] Drug Allergy Swelling of oral cavity structure (finding) [facility] (6 sources) liothyronine; Translations: [liothyronine] Drug Allergy Swelling of oral cavity structure (finding) [facility] (1 source) Ciprofloxacin Drug Allergy 06-14-20 [facility] Repository (1 source) No Known Medication Allergies; Translations: [No Known Medication Allergies] Propensity to adverse reactions (disorder) [facility] Repository Medications Current Medications Medication Drug Class(es) Dates Sig (Normalized) Sig (Original) acetaminophen 325 mg / HYDROcodone bitartrate 5 mg oral tablet (1 source) Opioid Agonist Start: 10-07-2022 End: 10-09-2022 acetaminophen-hyd rocodone 325 mg-5 mg oral tablet 1 tab(s), Oral, q4hr Pain for 2 day(s), 7 tab(s), Refill(s) 0, [id number], 175, cm, 09/15/22 5:20:00 EDT, Height/Length Dosing, 114, kg, 09/15/22 5:20:00 EDT, Weight Dosing Start Date: 10/07/22 Stop Date: 10/09/22 Status: Ordered [id number] 200 actuat albuterol 0.09 mg/actuat metered dose [...] 1 tablet by kamala th once daily cholecalciferol 2000 intl units oral tablet (Vitamin D3) 2,000 International_Unit = 1 tab(s), Oral, Daily Start Date: 04/10/19 Status: Ordered Start: 04-10-2019 take 1 tablet by kamala th once daily cholecalciferol 2000 intl units oral tablet (Vitamin D3) 2,000 International_Unit = 1 tab(s), Oral, Daily Start Date: 04/10/19 Status: Ordered take 1 capsule by mo [facility] every twenty-four hours Vitamin D3 [...] Status: Ordered take 1 tablet by kamala every twelve hours Diclofenac Sodium 75 MG 1 tablet as need ed Orally Twice a day Active doxycycline hyclate 100 mg oral capsule (8 sources) Tetracycline-class Drug Start: 12-07-2022 doxycy foss hyclate 100 mg Cap See Instructions, Take 1 cap the day before your procedure and 1 cap the day of your procedure - afterwards, # 2 cap(s), Refills(s) 0, Pharmacy: [facility] #[id number], 177, cm, 11/18/22 13:54:00 EDT, Height/Length Dosing, [...] 15, 2019 1:00am June 18, 2019 1:11pm Gtxi-Jbwrb-Fzm-D3-Hyal-Wiley B or (1 source) Start: 12-20-2023 take 1 tablet by mouth twice daily Ixhz-Cjdqd-Ksq-D3-Hyal-Wiley Bor Active 1 TAB PO Twice daily December 20, 2023 12:00am Away-Cllnm-Nfw-D3-Hyal-Wiley B or 750 mg-100 mg- 25 mcg tablet (1 source) Start: 12-20-2023 take 1 tablet by mouth twice daily Ygzs-Kuoag-Pre-D3-Hyal-Wiley Bor 750 mg-100 mg- 25 mcg tablet Active 1 TAB PO Twice daily December 20, 2023 12:00am glucosamine sulfate 500 mg oral capsule (9 sources) Start: 04-10-2019 take 1 capsule by mouth twice daily glucosamine 500 mg Cap 500 mg = 1 cap(s), Oral, BID, Arthritis Start Date: 04/10/19 Status: Ordered Repeat number: 1 Start: 04-10-2019 take 1 capsule by mo [facility] once daily glucosamine 500 mg Cap [...] kamala th once daily in the morning isosorbide [...] Start: 02-23-2021 take 2 tablets by mo [facility] once daily lisinopril 10 mg Tab [...] activity, # 30 tab(s), Refills(s) 2, Pharmacy: [facility] [id number], 174, cm, 08/18/20 12:16:00 EST, [...] 1 puff(s) by inhalation once daily Tiotropium [place] (Spiriva Respimat) 2.5 mcg/actuation mist Active 2 [...] Start: 03-24-2020 take 1 capsule by mo [facility] once daily Vitamin B Complex oral capsule 1 cap(s), Oral, Daily, Prophylaxis Start Date: 03/24/20 Status: Ordered Start: 03-24-2020 take 1 capsule by mo [facility] once daily Vitamin B Complex oral [...] (1 source) take 1 capsule by mo [facility] once daily Vitamin D3 125 MCG [...] Start: 11-27-2024 take 1 tablet by kamala th once daily Amlodipine 2.5 mg tablet Active 0 .ROUTE .COMPLEX November 27, 2024 11:28am TAKE 1 TABLET [...] pulmonary disease, unspecified] Onset: 3 09-14-2022 Chronic Congestive heart failure; nonhypertensive (2 sources) Chronic diastolic (congestive) heart failure; Translations: [Chronic diastolic (congestive) heart failure] Onset: 5 Chronic Coronary atherosclerosis and other heart disease (20 sources) Coronary arteriosclerosis; Translations: [Atherosclerotic heart disease of [place] coronary artery without angina pectoris] Onset: 3 04-10-2019 Chronic Comment on above: Problem List clean-u p per request of Phys. 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; Translations: [SOLUTION ADVISOR CURRENT USE OF ASPIRIN] Onset: 08-13-2022 Episodic Other aftercare (1 source) Other ferry terminal agent (current) drug therapy; Translations: [OTH MCFP CURRENT DRUG THERAPY] Onset: 08-13-2022 Episodic Other connective tissue disease (4 sources) Impingement syndrome of unspecified shoulder; Translations: [IMPINGEMENT SYNDROME UNS SHOULDER] Onset: 07-08-2022 Episodic Other non-traumatic joint disorders (1 source) Pain in right shoulder; Translations: [PAIN IN RIGHT SHOULDER] Onset: 07-09-2022 Episodic Other non-traumatic joint disorders (4 sources) Pain in left knee; Translations: [PAIN IN LEFT KNEE] Onset: 02-03-2022 Episodic Unclassified (1 source) CHRN KIDNEY DISEASE STG 3 UNSP; Translations: [CHRN KIDNEY DISEASE STG 3 UNSP] Onset: 08-18-2022 Results Test Name Value Interpretation Reference Range Facility Follow-Upon 01-28-2025 Follow-Up [id number] Ruben Smyth 1940 M Date Provider Department Center 01/28/2025 JENNIFER SMITH FABIOLA [facility] Family History Problem Relation Age of Onset No Known Problems Mother No Known Problems Father Family Status - Relation Status Age at Mother Father Level of Service:24088 [place] OFFICE/OUTPATIENT ESTABLISHED MOD MDM 30 MIN [facility] 36on 01-16-[address] Padmini mckee of message prior to him seeing the patient Several messages have been left for patient to call us. No return phone call from patient to advise him of Dr. Huynh's request. Jennifer Huynh MD to ELAINE Mike MA 01/09/25 2:22 AM I don't think it is related to ranolazine. Please have him reduce lasix to 20 mg daily and get a follow up BMP in 1 week. Thalia Rios MA to Jennifer Huynh MD [place] 01/03/25 8:46 AM See attached Me DC 01/03/25 8:31 AM Note Phone call from patient. Patient states Dr. Alfaro called him his BMP was abnormal. Patient states Dr. Alfaro'estefani wants to know what you are going to do about the abnormal labs. Patient states if you could comfier with Erum Acevedo as soon as possible and let him know what the next step is. Patient states he was having a bowel movement this AM and got dizzy on the toilet. Patient states he checked his blood sugar and it was 120 which its usually in the 140 he drank a boost and felt better. Patient is wondering if this is all do to the increase in the ranolazine. Please advise. Thalia Rios MA to Jennifer Huynh MD [place] 01/02/25 8:37 AM PT stopped in before his lab draw, states he had some red urine this morning. He does have kidney issues, I told him I would let you know and that we would wait for the labs [facility] Telephoneon 01-16-2025 Telephone [id number] Ruben Smythalcira 1940 M Date Provider Department Center 01/16/2025 [id number] FERNANDEZ FABIOLA Ruiz Family History Problem Relation Age of Onset No Known Problems Mother No Known Problems Father Family Status - Relation Status Age at Mother Father [facility] 36on 01-03-2025 36 Phone call from nicholas ent. Patient states Dr. Alfaro called him his BMP was abnormal. Patient states Dr. Alfaro'estefani wants to know what you are going to do about the abnormal labs. Patient states if you could comfier with Erum Acevedo as soon as possible and let him know what the next step is. Patient states he was having a bowel movement this AM and got dizzy on the toilet. Patient states he checked his blood sugar and it was 120 which its usually in the 140 he drank a boost and felt better. Patient is wondering if this is all do to the increase in the ranolazine. Please advise. [facility] Telephoneon 01-02-2025 Telephone [id number] Ruben Smyth 1940 M Date Provider Department Center 01/02/2025 Cristina-THALIA RIOS [facility] Family History Problem Relation Age of Onset No Known Problems Mother No Known Problems Father Family Status - Relation Status Age at Mother [facility] H[facility]P reviewed. The pa tiepedro was examined and there are no changes to the H&P. Consent for blood products obtained. Risks, benefits, and alternatives to procedure discussed with patient in detail who expressed understanding and agreed to proceed. Risks discussed included progression or renal disease, renal failure, bleed, heart attack, stroke, and . [facility] NURSNOTEon 12-27-2024 NURSNOTE RN educated pt on discharge instructions. RN encouraged pt to voice any questions or concerns. Pt verbalizes no questions or concerns at this time. Pt was wheeled off unit with all belongings. [facility] 12-24-2024 [facility] Cardiology - [facility] Subjective Victorino Smyth is a 84 y.o. year old male patient being seen for follow up abnormal stress test per Dr. Alfaro. Patient's been having intermittent chest pain lately, [...] RAMON stent to the LAD at [facility], was on Brilinta but currently on [...] test that was ordered by Dr. Jose Alfaro due to having chest pain. He reports that recently he has been having chest pain located in the center of the chest with radiation to the left side [...] kg (279 lb) SpO2 93% BMI 41.20 kg/m??? Smoking Status Never BSA 2.49 m??? Physical Exam Constitutional: Appearance: He is [...] is soft. Tenderness: There is no abdominal (more content not included)... [facility] Office Visiton 12-24-2024 Follow-up visit [id number] Ruben Smyth 1940 M Date Provider Department Center 12/24/2024 JENNIFER SMITH FABIOLA Mcneill [facility] Family History Problem Relation Age of Onset No Known Problems Mother No Known Problems Father Family Status - Relation Status Age at Mother Father Level of Service:94556 [place] OFFICE/OUTPATIENT ESTABLISHED HIGH MDM 40 MIN [facility] Ambulatory Visit Summaryon 0 12-10-2024 Ambulatory Visit Summary Ambulatory Visit Summary VICTORINO SMYTH DOB:1940 Visit Date:12/10/2024 Ambulatory Visit Instructions Your Diagnosis [...] Follow Up with CARLOS OLIVEROS, Ni Garcia, BHUPINDER When: Comments: 6 mos w/ PSA Where: [address] [address]- You Need to Complete the Following PSA [...] By Kamala (more content not included)... [facility] CHEMISTRYOrdered By: SYSTEM SYSTEM on 12-10-2024 Free PSA [Mass/Vol] 0.8 ng/mL Invalid Interpretation Code Remisol Chem Comment on above: Interpretive Data: T he concentration of free PSA and total PSA determined with assays from different manufacturers can vary due to differences in assay methods and specificity. Values obtained with different package line relief operator's assays cannot be used interchangeably. The methodology used to obtain this result was chemiluminescence using [employer]'s Access Hybritech PSA reagent and Access Hybritech [...] used for this result was chemiluminescence using [employer] Access Hybritech PSA reagent. Urology Office/Clinic Noteon [...] and history for this patient from Dr. Olviares. I have reviewed and verified the staff [...] he lost the order. -Obtain VALENTINA @ [facility]. Will call pt w results. 3. [...] Urinalysis negative. Follow-up With When Contact Information CARLOS OLIVEROS, Ni P, URL [address] [place] [address]- Additional Instructions: 6 mos w/ PSA Patient Education Prostate Cancer Screening I, Vale Bryan, personally scribed for Dr. Olivares on 12/10/2024 11:37:28. . Documentation recorded by the Vale alvarez acurately reflects the services(s) I performed and decisions made by me. Authenticated by Dr. Olivares on 12/10/2024 11:46:32. Portions of this record may have been created with voice recognition artificial intelligence software, specifically [employer], [employer] and or [employer]. Substitutions may have occurred due to the [...] prostate ( (more content not included)... [facility] Comment on above: Result Comment: Elec tronically Signed By: Ni OLIVARES MD\.br\Date and Time Signed: 12/10/24 11:47 EDT\.br\Electronically Co-Signed By: Vale Bryan\.br\Date and Time Co-Signed: 12/10/24 11:37 EDT Reminderson 11-30-2024 Reminders Reminders From: Shira Mauricio To: JCAOB Olivares; Sent: 06/12/2024 11:57:51 EST Show up: [...] ) Other: PROVIDER RELATED REMINDER:_ ( ) Diving Fisher ( ) Call Pharmacy ( ) Call Lab ( ) Other: Special Instructions:_ Comments:_ LM on reminding pt to get VALENTINA done, advise pt to call back LM on advise pt the order will be sent [facility] to get PSA & VALENTINA done [facility] Erythrocyte distribution wid th Auto (RBC) [Ratio]on 11-27-2024 Erythrocyte distribution width (RBC) [Ratio] Erythrocyte distribution width [Ratio] by Automated count 11.0-15.0 [facility] Estimated glomerular filtrat ion rate (GFR) non- Americanon 11-27-2024 GFR/1.73 sq M.predicted among non-blacks MDRD (S/P/Bld) [Vol rate/Area] Estimated glomerular filtration rate (GFR) non- Low >=60 mL/min/1.7 3m 2 [facility] Hematocrit Auto (Bld) [Volum e fraction]on 11-27-2024 Hematocrit (Bld) [Volume fraction] Hematocrit [Volume Fraction] of Blood by Automated count Low 42.0-54.0 [facility] Hemoglobin [Mass/volume] in Bloodon 11-27-2024 Hemoglobin (Bld) [Mass/Vol] Hemoglobin [Mass/volume] in Blood Low 14.0-18.0 [facility] Laboratory - Chemistry and C hemistry - challengeon 11-27-2024 Albumin [Mass/Vol] 3.3 g/dL Low 3.4-5.0 [facility] Calcium [Mass/Vol] 9.2 mg/dL 8.5-10.1 [facility] Chloride [Moles/Vol] 109 mmol/L High 98-107 [facility] CO2 [Moles/Vol] 24.5 mmol/L 21.0-32.0 [facility] Creatinine [Mass/Vol] 1.70 mg/dL High 0.70-1.30 [facility] GFR/1.73 sq M.predicted MDRD (S/P/Bld) [Vol rate/Area] 47 mL/min/{1.73_m2} Low >=60 mL/min/1.7 3m 2 [facility] Glucose [Mass/Vol] 152 mg/dL High 74-106 [facility] Magnesium [Mass/Vol] 1.8 mg/dL 1.8-2.4 [facility] Potassium [Moles/Vol] 4.7 mmol/L 3.5-5.1 [facility] Sodium [Moles/Vol] 145 mmol/L 136-145 [facility] Urate [Mass/Vol] 6.8 mg/dL 3.5-7.2 [facility] Urea nitrogen [Mass/Vol] 23.0 mg/dL High 7.0-18.0 [facility] Urea nitrogen/Creatinine [Mass ratio] 13.5 mg/mg [facility] Laboratory - Urinalysison Protein (U) [Mass/Vol] 33.1 mg/dL High <=11.9 [facility] Leukocytes [#/volume] correc ike for nucleated erythrocytes in Blood by Automated counon 11-27-2024 WBC corrected for nucl RBC Auto (Bld) [#/Vol] Leukocytes [#/volume] corrected for nucleated erythrocytes in Blood by Automated coun 4.0-11.0 [facility] MCH Auto (RBC) [Entitic mass ]on 11-27-2024 MCH (RBC) [Entitic mass] MCH [Entitic mass] by Automated count High 25.9-34.0 [facility] MCHC Auto (RBC) [Mass/Vol]on 11-27-2024 MCHC (RBC) [Mass/Vol] MCHC [Mass/volume] by Automated count 29.9-35.2 [facility] MCV Auto (RBC) [Entitic vol] on 11-27-2024 MCV (RBC) [Entitic vol] MCV [Entitic volume] by Automated count High 80.0-94.0 [facility] No Panel Informationon 11-27 25-Hydroxy Vitamin D Total 70.4 ng/mL [facility] Comment on above: <20 ng/mL Vit D defi cient20-<30 ng/mL Vit D akzgwmrtsupm81-629 ng/mL Vit D sufficient>100 ng/mL Potential Toxicity Parathyroid Hormone (Intact) 40 pg/mL 15-65 [facility] Comment on above: Performed at: [address] [id number] Director: Lee Bob PhD, Phone: [phone] Phosphorus Level 3.9 mg/dL 2.6-4.7 [facility] Urine Random Creatinine 179.73 mg/dL 20.00-300. 00 [facility] Platelet mean volume Auto (B ld) [Entitic vol]on 11-27-2024 Platelet mean volume (Bld) [Entitic vol] Platelet mean volume [Entitic volume] in Blood by Automated count 9.5-13.5 [facility] Platelets Auto (Bld) [#/Vol] on 11-27-2024 Platelets (Bld) [#/Vol] Platelets [#/volume] in Blood by Automated count 150-450 [facility] RBC Auto (Bld) [#/Vol]on RBC (Bld) [#/Vol] Erythrocytes [#/volu me] in Blood by Automated count Low 4.70-6.10 [facility] Serum or plasma anion gap de terminationon 11-27-2024 Anion gap [Moles/Vol] Serum or plasma an ion gap determination [facility] Urine protein/creatinine rat ioon 11-27-2024 Protein/Creatinine (U) [Ratio] Urine protein/creatinine ratio [facility] Ambulatory Visit Summaryon 1 08-13-2023 Ambulatory Visit [...] Ni OLIVARES MD Where: [facility] [address] [place] [place] [address]- You Need to Schedule the Following Appointments Follow Up with Ni LOIVARES MD, URL When: Where: [address] [address]- Medications What How Much When [...] if q (more content not included)... [facility] Urology Office/Clinic Noteon 06-12-2024 Urology Office/Clinic Note [...] 16% TRUS/bx 07/05/[address] Carlisle. Path [place] 6 (3+3) x2 involving 15%. Pt states [...] ordered PSA Follow-up With When Contact Information Ni OLIVARES MD, URL [address] [address]- Additional Instructions: 6 mos with [...] with voice recognition artificial intelligence software, specifically [employer], [employer] and or [employer]. Substitutions may have occurred due to the [...] of u (more content not included)... [facility] Comment on above: Result Comment: Elec tronically Signed By: Ni OLIVARES MD\.br\Date and Time Signed: 06/12/24 13:29 EST\.br\Electronically Co-Signed By: Shira Mauricio\.br\Date and Time Co-Signed: 12/17/24 11:55 EST Office Visiton 11-25-2024 Follow-up visit [id number] Ruben Smyth M 1940 M Date Provider Department Center 05/21/2024 JENNIFER SMITHevoctavia Ruiz Family History Problem Relation Age of Onset No Known Problems Mother No Known Problems Father Family Status - Relation Status Age at Mother Father Level of Service:70372 [place] OFFICE/OUTPATIENT ESTABLISHED LOW MDM 20 MIN [facility] Erythrocyte distribution wid th Auto (RBC) [Ratio]on 12-14-2023 Erythrocyte distribution width (RBC) [Ratio] 12.9 % 11.0-15.0 [facility] Estimated glomerular filtrat ion rate (GFR) non- Americanon 12-14-2023 GFR/1.73 sq M.predicted among non-blacks MDRD (S/P/Bld) [Vol rate/Area] 35 mL/min/{1.73_m2} >=60 [facility] Hematocrit Auto (Bld) [Volum e fraction]on 12-14-2023 Hematocrit (Bld) [Volume fraction] 41.9 % 42.0-54.0 [facility] Hemoglobin [Mass/volume] in Bloodon 12-14-2023 Hemoglobin (Bld) [Mass/Vol] 14.0 g/dL 14.0-18.0 [facility] Iron binding capacity [Mass/ volume] in Serum or Plasmaon 12-14-2023 Iron binding capacity [Mass/Vol] 279.0 ug/dL 250.0-450. 0 [facility] Iron saturation [Mass Fracti on] in Serum or Plasmaon 12-14-2023 Iron saturation [Mass fraction] 36.2 % [facility] Laboratory - Chemistry and C hemistry - challengeon 12-14-2023 Albumin [Mass/Vol] 3.3 g/dL 3.4-5.0 [facility] Calcium [Mass/Vol] 8.5 mg/dL 8.5-10.1 [facility] Chloride [Moles/Vol] 106 mmol/L 98-107 [facility] CO2 [Moles/Vol] 24.0 mmol/L 21.0-32.0 [facility] Creatinine [Mass/Vol] 1.84 mg/dL 0.70-1.30 [facility] Ferritin [Mass/Vol] 111.0 ng/mL 26.0-388.0 [facility] GFR/1.73 sq M.predicted MDRD (S/P/Bld) [Vol rate/Area] 43 mL/min/{1.73_m2} >=60 [facility] Glucose [Mass/Vol] 155 mg/dL 74-106 [facility] Iron [Mass/Vol] 101.0 ug/dL 65.0-175.0 [facility] Magnesium [Mass/Vol] 1.7 mg/dL 1.8-2.4 [facility] Potassium [Moles/Vol] 4.6 mmol/L 3.5-5.1 [facility] Sodium [Moles/Vol] 140 mmol/L 136-145 [facility] Urate [Mass/Vol] 6.4 mg/dL 3.5-7.2 [facility] Urea nitrogen [Mass/Vol] 21.0 mg/dL 7.0-18.0 [facility] [facility] Urea nitrogen/Creatinine [Mass ratio] 11.4 mg/mg [facility] Bilirubin Ql (U) Negative NEGATIVE [facility] Glucose (U) [Mass/Vol] Negative NEGATIVE [facility] Ketones Ql (U) Negative NEGATIVE [facility] pH (U) 5.5 [pH] 5.0-9.0 [facility] Specific gravity (U) [Rel density] 1.015 1.005-1.02 5 [facility] Urobilinogen Qn (U) 0.2 {Wil'U}/dL 0.2-1.0 [facility] Laboratory - Specimen inform ationon 12-14-2023 Appearance (U) CLEAR CLEAR [facility] Color (U) YELLOW YELLOW [facility] Laboratory - Urinalysison Leukocyte esterase Test strip Ql (U) Negative NEGATIVE [facility] Mucus Ql (Urine sed) NONE SEEN NONE SEEN [facility] Nitrite Ql (U) Negative NEGATIVE [facility] Protein (U) [Mass/Vol] 10.9 mg/dL <=11.9 [facility] Protein Ql (U) Negative NEG/TRACE [facility] Leukocytes [#/volume] correc ike for nucleated erythrocytes in Blood by Automated counon 12-14-2023 WBC corrected for nucl RBC Auto (Bld) [#/Vol] 6.2 10 3/uL 4.0-11.0 [facility] MCH Auto (RBC) [Entitic mass ]on 12-14-2023 MCH (RBC) [Entitic mass] 33.7 pg 25.9-34.0 [facility] MCHC Auto (RBC) [Mass/Vol]on 12-14-2023 MCHC (RBC) [Mass/Vol] 33.4 g/dL 29.9-35.2 [facility] MCV Auto (RBC) [Entitic vol] on 12-14-2023 MCV (RBC) [Entitic vol] 101.0 fL 80.0-94.0 [facility] No Panel Informationon 12-13 25-Hydroxy Vitamin D Total 66.1 ng/mL [facility] Comment on above: <20 ng/mL Vit D defi cient20-<30 ng/mL Vit D -552 ng/mL Vit D sufficient>100 ng/mL Potential Toxicity Parathyroid Hormone (Intact) 50 pg/mL 15-65 [facility] Comment on above: Performed at: - [employer] [address] [id number] Director: Lee Bob PhD, Phone: [phone] Phosphorus Level 3.5 mg/dL 2.6-4.7 [facility] Urine Bacteria NONE SEEN #/HPF NONE SEEN [facility] Urine Occult Blood Negative NEGATIVE [facility] Urine Other Casts NONE SEEN #/LPF NONE SEEN [facility] Urine Other Crystals None Seen #/HPF None Seen [facility] Urine Random Creatinine 71.05 mg/dL 20.00-300. 00 [facility] Urine RBC NONE SEEN #/HPF 0-2 [facility] Urine Squamous Epithelial Cells RARE #/LPF NONE/RARE [facility] Urine WBC NONE SEEN #/HPF NONE SEEN [facility] Platelet mean volume Auto (B ld) [Entitic vol]on 12-14-2023 Platelet mean volume (Bld) [Entitic vol] 11.2 fL 9.5-13.5 [facility] Platelets Auto (Bld) [#/Vol] on 12-14-2023 Platelets (Bld) [#/Vol] 168 10 3/uL 150-450 [facility] RBC Auto (Bld) [#/Vol]on RBC (Bld) [#/Vol] 4.15 10 6/uL 4.70-6.10 [facility] Serum or plasma anion gap de terminationon 12-14-2023 Anion gap [Moles/Vol] 14.6 mmol/L [facility] Urine protein/creatinine rat ioon 12-14-2023 Protein/Creatinine (U) [Ratio] 0.15 [facility] Daniel 10-18-2023 L Specimen: [id number] Received: 10/19/23 Status: HIMANSHU Williamson Num: [id number] Spec Type: Surgical Subm Dr: NON STAFF Tissues: A Colon Biopsy (DESC POLYP AT 50 CM) Procedures: HE/2, Gross/Micro L4 Age/ Patient Sex Location Account Attending Physician Victorino Smyth 83/M [facility] [id number] NON STAFF SPEC NUM: [id number] RECD: 10/19/23 STATUS: HIMANSHU WILLIAMSON NUM: [id number] HYUN: 10/18/[address]: NON STAFF ENTERED: 10/19/23 [facility] DR: Charito,Lab SPEC TYPE: Surgical DEPT: MIO [...] colon polyp at 50 cm CPT Codes 67686 Specimen: [id number] Received: 10/19/23 Status: HIMANSHU Williamson Num: [id number] Spec Type: Surgical Subm Dr: NON STAFF Tissues: A Colon Biopsy (DESC POLYP AT 50 CM) Procedures: TARUN/Rebecca, Gross/Jhonny L4 Patient: Victorino Smyth [id number] (Continued) Signed (signature on file) Ana Villegas MD 10/20/23 2679 Normal [facility] Calcium [Mass/volume] in Ser um or PlasmaOrdered By: Ni Olivares on 07-02-2023 Calcium [Mass/Vol] 8.8 mg/dL Normal 8.6-10.3 [facility] Comment on above: Performed By: #### U THUY, CA, CREAT, BUN, PTH, LYTES #### [address] Carbon dioxide, total [Moles /volume] in Serum or PlasmaOrdered By: Ni Olivares on 07-02-2023 CO2 [Moles/Vol] 24.0 mmol/L Normal 21.0-31.0 [facility] Comment on above: Performed By: #### U THUY, CA, CREAT, BUN, PTH, LYTES #### [address] Chloride [Moles/volume] in S paty or PlasmaOrdered By: Ni Olivares on 07-02-2023 Chloride [Moles/Vol] 107 mmol/L Normal 98-107 [facility] Comment on above: Performed By: #### U THUY, CA, CREAT, BUN, PTH, LYTES #### [address] Creatinineon 07-02-2023 GFR/1.73 sq M.predicted MDRD (S/P/Bld) [Vol rate/Area] 32.151 mL/min/{1.73_m2} Normal [facility] Comment on above: Performed By: #### U THUY, CA, CREAT, BUN, PTH, LYTES #### [address] Creatinine [Mass/volume] in Serum or PlasmaOrdered By: Ni Olivares on 07-02-2023 Creatinine [Mass/Vol] 2.05 mg/dL High 0.70-1.30 [facility] Comment on above: Performed By: #### U THUY, CA, CREAT, BUN, PTH, LYTES #### [address] No Panel InformationOrdered By: Ni Olivares on 07-02-2023 Estimated GFR (CKD-EPI) 32.151 mL/Min [facility] Creatinine Clearance (Chem N/A [facility] Parathyrin.intact [Mass/volu me] in Serum or PlasmaOrdered By: Ni Olivares on 07-02-2023 Parathyrin.intact [Mass/Vol] 55.4 pg/mL [facility] Parathyroid Hormone Intacton 07-02-2023 Parathyroid Hormone Intact 55.4 pg/mL Normal [facility] Comment on above: Result Comment: PERF ORMED BY: [place] [address] PATHOLOGIST PORTRAIT STUDIO PHOTOGRAPHER DIANDRA LACY M.D. Performed By: #### U THUY, CA, CREAT, BUN, PTH, LYTES #### [place] [address] [place] Potassium [Moles/volume] in Serum or PlasmaOrdered By: Ni Olivares on 07-02-2023 Potassium [Moles/Vol] 5.0 mmol/L Normal 3.5-5.1 [facility] Comment on above: Performed By: #### U THUY, CA, CREAT, BUN, PTH, LYTES #### [address] Serum or plasma anion gap de terminationOrdered By: Ni Olivares on 07-02-2023 Anion gap [Moles/Vol] 12.0 mmol/L Normal 6.0-15.0 [facility] Comment on above: Performed By: #### U THUY, CA, CREAT, BUN, PTH, LYTES #### [place] [address] [place] Sodium [Moles/volume] in Ser um or PlasmaOrdered By: Ni Olivares on 07-02-2023 Sodium [Moles/Vol] 138 mmol/L Normal 136-145 [facility] Comment on above: Performed By: #### U THUY, CA, CREAT, BUN, PTH, LYTES #### [place] [address] [place] Urate [Mass/volume] in Serum or PlasmaOrdered By: Ni Olivares on 07-02-2023 Urate [Mass/Vol] 8.2 mg/dL High 4.4-7.6 [facility] Comment on above: Result Comment: PERF ORMED BY: [place] [address] PATHOLOGIST PORTRAIT STUDIO PHOTOGRAPHER DIANDRA LACY M.D. Performed By: #### U THUY, CA, CREAT, BUN, PTH, LYTES #### [place] [address] [place] Urea nitrogen [Mass/volume] in Serum or PlasmaOrdered By: Ni Olivares on 07-02-2023 Urea nitrogen [Mass/Vol] 31 mg/dL High 7-25 [facility] Comment on above: Performed By: #### U THUY, CA, CREAT, BUN, PTH, LYTES #### [address] PSA Total (Not a Screen)on 0 06-28-2023 PSA Total (Not a Screen) 4.730 ng/mL High 0.000-4.00 0 [facility] Comment on above: Result Comment: Seri al tumor marker results determined by assays using different manufacturers or methods may not be comparable. 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 PERFORMED BY: [place] [address] PATHOLOGIST PORTRAIT STUDIO PHOTOGRAPHER DIANDRA LACY M.D. Performed By: #### P SATOTAL #### [place] [address] [place] Prostate specific Ag [Mass/v olume] in Serum or PlasmaOrdered By: Ni Olivares on 06-28-2023 Prostate specific Ag [Mass/Vol] 4.730 ng/mL 0.000-4.00 0 [facility] Comment on above: Serial tumor marker results determined by assays using different manufacturers or methods may not be comparable.[facility] package line relief operator and method:[employer] DXI, CHEMILUMINESCENT IMMUNOASSAY. US renal BIon 06-16-2023 US renal BI [facility] [place] [address] [place] [address] Ultrasound Report Signed Patient: Victorino Smyth MR#: [id number] : 1940 Acct:[id number] Age/Sex: 82 / M ADM Date: 06/16/23 Loc: Room: Type: [facility] Attending Dr: Ni Olivares MD Ordering Provider: [...] Rehan Fuentes M.D.06/16/2023 4:02 PM Dictation Location: [place] [address] Tech: Sue Chiu Transcribed By: [facility] 06/16/23 1602 Dictated By: Rehan Fuentes DO 06/16/23 1559 Signed By: 06/16/23 1602 Normal [facility] PSA, FREE AND TOTAL RATIOon 11-09-2022 % Free PSA 11.3 % Normal [facility] Comment on above: Result [...] men. Performed By: #### P SAFREE #### [facility] [address] [place] [address] Dr. Alicia Patel Prostate specific Ag [Mass/Vol] 4.6 ng/mL Critically high 0.0-4.0 [facility] Comment on above: Result Comment: Dwight JUAREZ methodology. . According to the [place] [employer], Serum PSA should decrease and [...] disease. Performed By: #### P SAFREE #### [facility] [address] [place] [address] Dr. Alicia Patel PSA, Free 0.52 ng/mL Normal N/A [facility] Comment on above: Result Comment: Dwight JUAREZ methodology. Performed By: #### P SAFREE #### [facility] [address] [place] [address] Dr. Alicia Patel INSULINon 11-08-2022 Insulin 18.5 uIU/mL Normal 2.6-24.9 [facility] Comment on above: Performed By: #### T SH, LIPID, T4, FT3, CMP #### [facility] [address] [place] [address] Dr. Alicia Patel CBC AUTO DIFFon 11-06-2022 BASO # 0.0 103/ul Normal 0.0-0.1 [facility] Comment on above: Performed By: #### C BC #### [facility] [address] [place] [address] Dr. Alicia Patel Basophils/100 WBC (Bld) 0.4 % Normal 0.2-2.0 [facility] Comment on above: Performed By: #### C BC #### [facility] [address] [place] [address] Dr. Alicia Patel EO # 0.2 103/ul Normal 0.0-0.7 [facility] Comment on above: Performed By: #### C BC #### [facility] [address] [place], [place] [id number] Dr. Alicia Patel Eosinophils/100 WBC (Bld) 4.6 % Normal 0.9-7.0 [facility] Comment on above: Performed By: #### C BC #### [facility] [address] [place] [address] Dr. Alicia Patel Erythrocyte distribution width (RBC) [Ratio] 13.2 % Normal 11.0-15.0 [facility] Comment on above: Performed By: #### C BC #### [facility] [address] [place] [address] Dr. Alicia Patel Hematocrit (Bld) [Volume fraction] 34.6 % Critically low 42.0-54.0 [facility] Comment on above: Performed By: #### C BC #### [facility] [address] [place] [address] Dr. Alicia Patel Hemoglobin (Bld) [Mass/Vol] 11.4 g/dL Critically low 14.0-18.0 [facility] Comment on above: Performed By: #### C BC #### [facility] [address] [place] [address] Dr. Alicia Patel IG # 0.03 10e3/ul Normal 0.00-0.03 [facility] Comment on above: Performed By: #### C BC #### [facility] [address] [place] [address] Dr. Alicia Patel IG % 0.6 % Critically high 0.0-0.5 [facility] Comment on above: Performed By: #### C BC #### [facility] [address] [place] [address] Dr. Alicia Patel LYMPH # 0.9 103/ul Critically low 1.2-3.8 [facility] Comment on above: Performed By: #### C BC #### [facility] [address] [place] [address] Dr. Alicia Patel Lymphocytes/100 WBC (Bld) 16.3 % Critically low 20.5-60.0 [facility] Comment on above: Performed By: #### C BC #### [facility] [address] [place] [address] Dr. Alicia Patel MANUAL DIFF REQ NO Normal [facility] Comment on above: Performed By: #### C BC #### [facility] [address] [place] [address] Dr. Alicia Patel MCH (RBC) [Entitic mass] 32.9 pg Normal 25.9-34.0 [facility] Comment on above: Performed By: #### C BC #### [facility] [address] [place] [address] Dr. Alicia Patel MCHC (RBC) [Mass/Vol] 32.9 g/dL Normal 29.9-35.2 [facility] Comment on above: Performed By: #### C BC #### [facility] [address] [place] [address] Dr. Alicia Patel MCV (RBC) [Entitic vol] 99.7 fL Critically high 80.0-94.0 [facility] Comment on above: Performed By: #### C BC #### [facility] [address] [place] [address] Dr. Alicia Patel MONO # 0.6 103/ul Normal 0.3-0.8 [facility] Comment on above: Performed By: #### C BC #### [facility] [address] [place] [address] Dr. Alicia Patel Monocytes/100 WBC (Bld) 12.0 % Normal 1.7-12.0 [facility] Comment on above: Performed By: #### C BC #### [facility] [address] [place] [address] Dr. Alicia Patel NEUT # 3.5 103/ul Normal 1.4-6.5 [facility] Comment on above: Performed By: #### C BC #### [facility] [address] [place] [address] Dr. Alicia Patel Neutrophils/100 WBC (Bld) 66.1 % Normal 43.0-75.0 [facility] Comment on above: Performed By: #### C BC #### [facility] [address] [place] [address] Dr. Alicia Patel Platelet mean volume (Bld) [Entitic vol] 10.1 fL Normal 9.5-13.5 [facility] Comment on above: Performed By: #### C BC #### [facility] [address] [place] [address] Dr. Alicia Patel PLT 168 103/ul Normal 150-450 [facility] Comment on above: Performed By: #### C BC #### [facility] [address] [place] [address] Dr. Alicia Patel RBC 3.47 106/ul Critically low 4.70-6.10 [facility] Comment on above: Performed By: #### C BC #### [facility] [address] [place] [address] Dr. Alicia Patel WBC 5.2 103/ul Normal 4.0-11.0 [facility] Comment on above: Performed By: #### C BC #### [facility] [address] [place] [address] Dr. Alicia Patel FREE T3on 11-06-2022 FREE T3 2.78 pg/mlL Normal 2.18-3.98 [facility] Comment on above: Performed By: #### U RTPCR #### [facility] [address] [place] [address] Dr. Alicia Patel GLYCOHEMOGLOBIN A1Con 2022 ADA RECOMMENDATION SEE BELOW Normal [facility] Comment on above: Result Comment: ADA RECOMMENDED LIMIT 4.0 - 6.0 ADA THERAPEUTIC TARGET < 7.0 ACTION SUGGESTED > 7.0 Performed By: #### T SH, LIPID, T4, FT3, CMP #### [facility] [address] [place] [address] Dr. Alicia Patel Glucose [Mass/Vol] 120 mg/dL Normal [facility] Comment on above: Performed By: #### T SH, LIPID, T4, FT3, CMP #### [facility] [address] [place] [address] Dr. Alicia Patel HbA1c (Bld) [Mass fraction] 5.8 % Normal 4.5-6.2 [facility] Comment on above: Performed By: #### T SH, LIPID, T4, FT3, CMP #### [facility] [address] [place] [address] [address] Alicia Patel LIPID PROFILEon 11-06-2022 CHOL-HDL RATIO NORM SEE BELOW Normal [facility] Comment on above: Result Comment: 3.3 - 4.4 LOW RISK 4.4 - 7.1 AVERAGE RISK 7.1 - 11.0 MODERATE RISK >11.0 HIGH RISK Performed By: #### U RTPCR #### [facility] [address] [place] [address] [address] Alicia Patel Cholesterol [Mass/Vol] 107 mg/dL Normal <=200 [facility] Comment on above: Performed By: #### U RTPCR #### [facility] [address] [place] [address] [address] Alicia Patel Cholesterol in HDL [Mass/Vol] 34 mg/dL Critically low 40-60 [facility] Comment on above: Performed By: #### U RTPCR #### [facility] [address] [place] [address] [address] Alicia Patel Cholesterol in LDL [Mass/Vol] 58.8 mg/dL Normal [facility] Comment on above: Performed By: #### U RTPCR #### [facility] [address] [place] [address] [address] Alicia Patel Cholesterol.total/Chol esterol in HDL [Mass ratio] 3.1 {ratio} Normal [facility] Comment on above: Performed By: #### U RTPCR #### [facility] [address] [place] [address] [address] Alicia Patel HDL NORMAL > or = 60 mg/dl - LO W CARDIOVASCULAR RISK <40 mg/dl - HIGH CARDIOVASCULAR RISK Normal [facility] Comment on above: Performed By: #### U RTPCR #### [facility] [address] [place] [address] [address] Alicia Patel LDL CALC NORMAL SEE BELOW Normal [facility] Comment on above: Result Comment: <100 mg/dl OPTIMAL 100 - 129 mg/dl NEAR OR ABOVE OPTIMAL 130 - 159 mg/dl BORDERLINE HIGH 160 - 189 mg/dl HIGH >190 mg/dl VERY HIGH Performed By: #### U RTPCR #### [facility] [address] [place] [address] Dr. Alicia Patel Triglyceride [Mass/Vol] 71 mg/dL Normal <=150 [facility] Comment on above: Performed By: #### U RTPCR #### [facility] [address] [place] [address] Dr. Alicia Patel VLDL CALC 14.2 mg/dL Normal [facility] Comment on above: Performed By: #### U RTPCR #### [facility] [address] [place] [address] Dr. Alicia Patel PROF 14(COMP METB)on 023 Albumin [Mass/Vol] 3.4 g/dL Normal 3.4-5.0 [facility] Comment on above: Performed By: #### T SH, LIPID, T4, FT3, CMP #### [facility] [address] [place] [address] Dr. Alicia Patel Albumin/Globulin [Mass ratio] 0.9 {ratio} Normal [facility] Comment on above: Performed By: #### T SH, LIPID, T4, FT3, CMP #### [facility] [address] [place] [address] Dr. Alicia Patel ALP [Catalytic activity/Vol] 75 U/L Normal 46-116 [facility] Comment on above: Performed By: #### T SH, LIPID, T4, FT3, CMP #### [facility] [address] [place] [address] Dr. Alicia Patel ALT [Catalytic activity/Vol] 31 U/L Normal 16-63 [facility] Comment on above: Performed By: #### T SH, LIPID, T4, FT3, CMP #### [facility] [address] [place] [address] Dr. Alicia Patel Anion gap [Moles/Vol] 14.4 mmol/L Normal [facility] Comment on above: Performed By: #### T SH, LIPID, T4, FT3, CMP #### [facility] [address] [place] [address] Dr. Alicia Patel AST [Catalytic activity/Vol] 23 U/L Normal 15-37 [facility] Comment on above: Performed By: #### T SH, LIPID, T4, FT3, CMP #### [facility] [address] [place] [address] Dr. Alicia Patel Bilirubin [Mass/Vol] 0.5 mg/dL Normal 0.2-1.0 [facility] Comment on above: Performed By: #### T SH, LIPID, T4, FT3, CMP #### [facility] [address] [place] [address] Dr. Alicia Patel Calcium [Mass/Vol] 8.8 mg/dL Normal 8.5-10.1 [facility] Comment on above: Performed By: #### T SH, LIPID, T4, FT3, CMP #### [facility] [address] [place] [address] Dr. Alicia Patel Chloride [Moles/Vol] 110 mmol/L Critically high 98-107 [facility] Comment on above: Performed By: #### T SH, LIPID, T4, FT3, CMP #### [facility] [address] [place] [address] Dr. Alicia Patel CO2 [Moles/Vol] 24.2 mmol/L Normal 21.0-32.0 [facility] Comment on above: Performed By: #### T SH, LIPID, T4, FT3, CMP #### [facility] [address] [place] [address] Dr. Alicia Patel Creatinine [Mass/Vol] 2.41 mg/dL Critically high 0.70-1.30 [facility] Comment on above: Performed By: #### T SH, LIPID, T4, FT3, CMP #### [facility] [address] [place] [address] Dr. Alicia Patel EGFR-AF BOLIVIAN 32 mL/min/1.73m2 Critically low >=60 [facility] Comment on above: Performed By: #### T SH, LIPID, T4, FT3, CMP #### [facility] [address] [place] [address] Dr. Alicia Patel EGFR-NON AF BOLIVIAN 26 mL/min/1.73m2 Critically low >=60 [facility] Comment on above: Performed By: #### T SH, LIPID, T4, FT3, CMP #### [facility] [address] [place] [address] Dr. Alicia Patel Globulin (S) [Mass/Vol] 3.6 g/dL Normal [facility] Comment on above: Performed By: #### T SH, LIPID, T4, FT3, CMP #### [facility] [address] [place] [address] Dr. Alicia Patel Glucose [Mass/Vol] 72 mg/dL Critically low 74-106 [facility] Comment on above: Performed By: #### T SH, LIPID, T4, FT3, CMP #### [facility] [address] [place] [address] Dr. Alicia Patel Potassium [Moles/Vol] 4.6 mmol/L Normal 3.5-5.1 [facility] Comment on above: Performed By: #### T SH, LIPID, T4, FT3, CMP #### [facility] [address] [place] [address] Dr. Alicia Patel Protein [Mass/Vol] 7.0 g/dL Normal 6.4-8.2 [facility] Comment on above: Performed By: #### T SH, LIPID, T4, FT3, CMP #### [facility] [address] [place] [address] Dr. Alicia Patel Sodium [Moles/Vol] 144 mmol/L Normal 136-145 [facility] Comment on above: Performed By: #### T SH, LIPID, T4, FT3, CMP #### [facility] [address] [place] [address] Dr. Alicia Patel Urea nitrogen [Mass/Vol] 32.0 mg/dL Critically high 7.0-18.0 [facility] Comment on above: Performed By: #### T SH, LIPID, T4, FT3, CMP #### [facility] [address] [place] [address] Dr. Alicia Patel Urea nitrogen/Creatinine [Mass ratio] 13.3 mg/mg Normal [facility] Comment on above: Performed By: #### T SH, LIPID, T4, FT3, CMP #### [facility] [address] [place] [address] Dr. Alicia Patel T4on 11-06-2022 T4 [Mass/Vol] 7.90 ug/dL Normal 4.50-12.10 [facility] Comment on above: Performed By: #### T SH, LIPID, T4, FT3, CMP #### [facility] [address] [place] [address] Dr. Alicia Patel TSHon 11-06-2022 TSH 0.263 uIU/mL Critically low 0.358-3.74 0 [facility] Comment on above: Performed By: #### T SH, LIPID, T4, FT3, CMP #### [facility] [address] [place] [address] Dr. Alicia Patel URIC ACID SERUMon 11-06-2022 Urate [Mass/Vol] 7.3 mg/dL Critically high 3.5-7.2 [facility] Comment on above: Performed By: #### T SH, LIPID, T4, FT3, CMP #### [facility] [address] [place] [address] Dr. Alicia Patel ECHOCARDIO M/2D COMPLETEon 0 10-26-2022 ECHOCARDIO M/2D COMPLETE Patient: VICTORINO SMYTH Exam Date: 10/26/2022 : 1940 Gender:M Ordering : IRIS CORONEL Admission #: [id number] Family : DR JOSE ALFARO . Order #: [id number] CLICK HERE TO VIEW EXAM ECHOCARDIOGRAM REPORT [...] on 10/28/2022 at 13:02 Normal [facility] XR KUB 1 VIEWon 10-22-2022 XR KUB [...] MONSIVAIS Date: 2022-10-22 09:12 Normal [facility] US KIDNEYSon 10-18-2022 US KIDNEYS EXAMINATION: US KIDRiki Estefani HISTORY: Kidney stone COMPARISON: Ultrasound kidneys 09/01/2022, [...] TESS FORD Date: 2022-10-18 07:04 Normal [facility] BNPon 10-14-2022 Natriuretic peptide B (Bld) [Mass/Vol] 300.0 pg/mL Normal <=1,800.0 [facility] Comment on above: Performed By: #### T SH, LIPID, T4, FT3, CMP #### [facility] [address] [place] [address] Dr. Alicia Patel CBC AUTO DIFFon 10-14-2022 BASO # 0.0 103/ul Normal 0.0-0.1 [facility] Comment on above: Performed By: #### T SH, LIPID, T4, FT3, CMP #### [facility] [address] [place] [address] Dr. Alicia Patel Basophils/100 WBC (Bld) 0.6 % Normal 0.2-2.0 [facility] Comment on above: Performed By: #### T SH, LIPID, T4, FT3, CMP #### [facility] [address] [place] [address] Dr. Alicia Patel EO # 0.2 103/ul Normal 0.0-0.7 [facility] Comment on above: Performed By: #### T SH, LIPID, T4, FT3, CMP #### [facility] [address] [place] [address] Dr. Alicia Patel Eosinophils/100 WBC (Bld) 4.6 % Normal 0.9-7.0 [facility] Comment on above: Performed By: #### T SH, LIPID, T4, FT3, CMP #### [facility] [address] [place] [address] Dr. Alicia Patel Erythrocyte distribution width (RBC) [Ratio] 14.2 % Normal 11.0-15.0 [facility] Comment on above: Performed By: #### T SH, LIPID, T4, FT3, CMP #### [facility] [address] [place] [address] Dr. Alicia Patel Hematocrit (Bld) [Volume fraction] 36.1 % Critically low 42.0-54.0 [facility] Comment on above: Performed By: #### T SH, LIPID, T4, FT3, CMP #### [facility] [address] [place] [address] Dr. Alicia Patel Hemoglobin (Bld) [Mass/Vol] 11.8 g/dL Critically low 14.0-18.0 [facility] Comment on above: Performed By: #### T SH, LIPID, T4, FT3, CMP #### [facility] [address] [place] [address] Dr. Alicia Patel IG # 0.03 10e3/ul Normal 0.00-0.03 [facility] Comment on above: Performed By: #### T SH, LIPID, T4, FT3, CMP #### [facility] [address] [place] [address] Dr. Alicia Patel IG % 0.6 % Critically high 0.0-0.5 [facility] Comment on above: Performed By: #### T SH, LIPID, T4, FT3, CMP #### [facility] [address] [place] [address] Dr. Alicia Patel LYMPH # 1.1 103/ul Critically low 1.2-3.8 [facility] Comment on above: Performed By: #### T SH, LIPID, T4, FT3, CMP #### [facility] [address] [place] [address] Dr. Alicia Patel Lymphocytes/100 WBC (Bld) 22.6 % Normal 20.5-60.0 [facility] Comment on above: Performed By: #### T SH, LIPID, T4, FT3, CMP #### [facility] [address] [place] [address] Dr. Alicia Patel MANUAL DIFF REQ NO Normal [facility] Comment on above: Performed By: #### T SH, LIPID, T4, FT3, CMP #### [facility] [address] [place] [address] Dr. Alicia Patel MCH (RBC) [Entitic mass] 33.2 pg Normal 25.9-34.0 [facility] Comment on above: Performed By: #### T SH, LIPID, T4, FT3, CMP #### [facility] [address] [place] [address] Dr. Alicia Patel MCHC (RBC) [Mass/Vol] 32.7 g/dL Normal 29.9-35.2 [facility] Comment on above: Performed By: #### T SH, LIPID, T4, FT3, CMP #### [facility] [address] [place] [address] Dr. Alicia Patel MCV (RBC) [Entitic vol] 101.7 fL Critically high 80.0-94.0 [facility] Comment on above: Performed By: #### T SH, LIPID, T4, FT3, CMP #### [facility] [address] [place] [address] Dr. Alicia Patel MONO # 0.7 103/ul Normal 0.3-0.8 [facility] Comment on above: Performed By: #### T SH, LIPID, T4, FT3, CMP #### [facility] [address] [place] [address] Dr. Alicia Patel Monocytes/100 WBC (Bld) 13.8 % Critically high 1.7-12.0 [facility] Comment on above: Performed By: #### T SH, LIPID, T4, FT3, CMP #### [facility] [address] [place] [address] Dr. Alicia Patel NEUT # 2.9 103/ul Normal 1.4-6.5 [facility] Comment on above: Performed By: #### T SH, LIPID, T4, FT3, CMP #### [facility] [address] [place] [address] Dr. Alicia Patel Neutrophils/100 WBC (Bld) 57.8 % Normal 43.0-75.0 [facility] Comment on above: Performed By: #### T SH, LIPID, T4, FT3, CMP #### [facility] [address] [place] [address] Dr. Alicia Patel Platelet mean volume (Bld) [Entitic vol] 10.1 fL Normal 9.5-13.5 [facility] Comment on above: Performed By: #### T SH, LIPID, T4, FT3, CMP #### [facility] [address] [place] [address] Dr. Alicia Patel PLT 160 103/ul Normal 150-450 [facility] Comment on above: Performed By: #### T SH, LIPID, T4, FT3, CMP #### [facility] [address] [place] [address] Dr. Alicia Patel RBC 3.55 106/ul Critically low 4.70-6.10 [facility] Comment on above: Performed By: #### T SH, LIPID, T4, FT3, CMP #### [facility] [address] [place] [address] Dr. Alicia Patel WBC 5.0 103/ul Normal 4.0-11.0 [facility] Comment on above: Performed By: #### T SH, LIPID, T4, FT3, CMP #### [facility] [address] [place] [address] Dr. Alicia Patel PROF CHEM 8 (BAS METB)on Anion gap [Moles/Vol] 13.9 mmol/L Normal [facility] Comment on above: Performed By: #### T SH, LIPID, T4, FT3, CMP #### [facility] [address] [place] [address] Dr. Alicia Patel Calcium [Mass/Vol] 8.3 mg/dL Critically low 8.5-10.1 [facility] Comment on above: Performed By: #### T SH, LIPID, T4, FT3, CMP #### [facility] [address] [place] [address] Dr. Alicia Patel Chloride [Moles/Vol] 108 mmol/L Critically high 98-107 [facility] Comment on above: Performed By: #### T SH, LIPID, T4, FT3, CMP #### [facility] [address] [place] [address] Dr. Alicia Patel CO2 [Moles/Vol] 23.5 mmol/L Normal 21.0-32.0 [facility] Comment on above: Performed By: #### T SH, LIPID, T4, FT3, CMP #### [facility] [address] [place] [address] Dr. Alicia Patel Creatinine [Mass/Vol] 2.41 mg/dL Critically high 0.70-1.30 [facility] Comment on above: Performed By: #### T SH, LIPID, T4, FT3, CMP #### [facility] [address] [place] [address] Dr. Alicia Patel EGFR-AF BOLIVIAN 32 mL/min/1.73m2 Critically low >=60 [facility] Comment on above: Performed By: #### T SH, LIPID, T4, FT3, CMP #### [facility] [address] [place] [address] Dr. Alicia Patel EGFR-NON AF BOLIVIAN 26 mL/min/1.73m2 Critically low >=60 [facility] Comment on above: Performed By: #### T SH, LIPID, T4, FT3, CMP #### [facility] [address] [place] [address] Dr. Alicia Patel Glucose [Mass/Vol] 74 mg/dL Normal 74-106 [facility] Comment on above: Performed By: #### T SH, LIPID, T4, FT3, CMP #### [facility] [address] [place] [address] Dr. Alicia Patel Potassium [Moles/Vol] 4.4 mmol/L Normal 3.5-5.1 [facility] Comment on above: Performed By: #### T SH, LIPID, T4, FT3, CMP #### [facility] [address] [place] [address] Dr. Alicia Patel Sodium [Moles/Vol] 141 mmol/L Normal 136-145 [facility] Comment on above: Performed By: #### T SH, LIPID, T4, FT3, CMP #### [facility] [address] [place] [address] Dr. Alicia Patel Urea nitrogen [Mass/Vol] 36.0 mg/dL Critically high 7.0-18.0 [facility] Comment on above: Performed By: #### T SH, LIPID, T4, FT3, CMP #### [facility] [address] [address] [address] Alicia Patel Urea nitrogen/Creatinine [Mass ratio] 14.9 mg/mg Normal [facility] Comment on above: Performed By: #### T SH, LIPID, T4, FT3, CMP #### [facility] [address] [address] [address] Alicia Patel TROPONIN, HIGH SENSITIVITYon 10-14-2022 HSTROP 9.6 pg/mL Normal 4.0-76.1 [facility] Comment on above: Result Comment: CUT- OFF POINTS HAVE BEEN ESTABLISHED BASED ON THE FOURTH UNIVERSAL DEFINITIONS OF MYOCARDIAL INFARCTION. THE UPPER REFERENCE LIMIT (URL) OF TROPONIN, DEFINED THE 99TH PERCENTILE OF cTnI DISTRIBUTION IN A REFERENCE POPULATION, HAS BEEN CONFIRMED THE DECISION THRESHOLD FOR [place] DIAGNOSIS. Performed By: #### T SH, LIPID, T4, FT3, CMP #### [facility] [address] [place] [address] Dr. Alicia Patel CHEMISTRYOrdered By: Lab ROP User on 10-07-2022 Glucose [Mass/Vol] 101 mg/dL High 55 - 99 mg/dL [facility] POC Subsection Comment on above: Result Comment: Jackelin quach RN/ POC Device SN [id number] Invalid Interpretation Code [facility] POC Subsection POC User ID [id number] Invalid Interpretation Code [facility] POC Subsection POC Username BEE NORRIS Invalid Interpretation Code [facility] POC Subsection PTH INTACTon 09-14-2022 PTH, Intact 51 pg/mL Normal 15-65 [facility] Comment on above: Performed By: #### T SH, LIPID, T4, FT3, CMP #### [facility] [address] [address] [address] Alicia Patel HEMOGRAM AND PLATELon 2022 Hematocrit (Bld) [Volume fraction] 32.9 % Critically low 42.0-54.0 [facility] Comment on above: Performed By: #### T SH, LIPID, T4, FT3, CMP #### [facility] [address] [place] [address] Dr. Alicia Patel Hemoglobin (Bld) [Mass/Vol] 10.9 g/dL Critically low 14.0-18.0 [facility] Comment on above: Performed By: #### T SH, LIPID, T4, FT3, CMP #### [facility] [address] [place] [address] Dr. Alicia Patel MCH (RBC) [Entitic mass] 32.6 pg Normal 25.9-34.0 [facility] Comment on above: Performed By: #### T SH, LIPID, T4, FT3, CMP #### [facility] [address] [place] [address] Dr. Alicia Patel MCHC (RBC) [Mass/Vol] 33.1 g/dL Normal 29.9-35.2 [facility] Comment on above: Performed By: #### T SH, LIPID, T4, FT3, CMP #### [facility] [address] [place] [address] Dr. Alicia Patel MCV (RBC) [Entitic vol] 98.5 fL Critically high 80.0-94.0 [facility] Comment on above: Performed By: #### T SH, LIPID, T4, FT3, CMP #### [facility] [address] [place] [address] Dr. Alicia Patel PLT 145 103/ul Critically low 150-450 [facility] Comment on above: Performed By: #### T SH, LIPID, T4, FT3, CMP #### [facility] [address] [place] [address] Dr. Alicia Patel RBC 3.34 106/ul Critically low 4.70-6.10 [facility] Comment on above: Performed By: #### T SH, LIPID, T4, FT3, CMP #### [facility] [address] [place] [address] Dr. Alicia Patel WBC 5.1 103/ul Normal 4.0-11.0 [facility] Comment on above: Performed By: #### T SH, LIPID, T4, FT3, CMP #### [facility] [address] [place] [address] Dr. Alicia Patel MAGNESIUMon 09-13-2022 Magnesium [Mass/Vol] 1.5 mg/dL Critically low 1.8-2.4 [facility] Comment on above: Performed By: #### T SH, LIPID, T4, FT3, CMP #### [facility] [address] [address] [address] Alicia Patel RENAL FUNCTION PANELon 09-13 Albumin [Mass/Vol] 3.5 g/dL Normal 3.4-5.0 [facility] Comment on above: Performed By: #### U RTPCR #### [facility] [address] [address] [address] Alicia Patel Calcium [Mass/Vol] 8.4 mg/dL Critically low 8.5-10.1 [facility] Comment on above: Performed By: #### U RTPCR #### [facility] [address] [place] [address] Dr. Alicia Patel Chloride [Moles/Vol] 107 mmol/L Normal 98-107 [facility] Comment on above: Performed By: #### U RTPCR #### [facility] [address] [place] [address] Dr. Alicia Patel CO2 [Moles/Vol] 25.1 mmol/L Normal 21.0-32.0 [facility] Comment on above: Performed By: #### U RTPCR #### [facility] [address] [place] [address] Dr. Alicia Patel Creatinine [Mass/Vol] 1.96 mg/dL Critically high 0.70-1.30 [facility] Comment on above: Performed By: #### U RTPCR #### [facility] [address] [place] [address] Dr. Alicia Patel EGFR-AF BOLIVIAN 40 mL/min/1.73m2 Critically low >=60 [facility] Comment on above: Performed By: #### U RTPCR #### [facility] [address] [place] [address] Dr. Alicia Patel EGFR-NON AF BOLIVIAN 33 mL/min/1.73m2 Critically low >=60 [facility] Comment on above: Performed By: #### U RTPCR #### [facility] [address] [address] [address] Alicia Patel Glucose [Mass/Vol] 151 mg/dL Critically high 74-106 [facility] Comment on above: Performed By: #### U RTPCR #### [facility] [address] [address] [address] Alicia Patel Phosphate [Mass/Vol] 3.5 mg/dL Normal 2.6-4.7 [facility] Comment on above: Performed By: #### U RTPCR #### [facility] [address] [place] [address] Dr. Alicia Patel Potassium [Moles/Vol] 4.3 mmol/L Normal 3.5-5.1 [facility] Comment on above: Performed By: #### U RTPCR #### [facility] [address] [place] [address] Dr. Alicia Patel Sodium [Moles/Vol] 142 mmol/L Normal 136-145 [facility] Comment on above: Performed By: #### U RTPCR #### [facility] [address] [place] [address] Dr. Alicia Patel Urea nitrogen [Mass/Vol] 23.0 mg/dL Critically high 7.0-18.0 [facility] Comment on above: Performed By: #### U RTPCR #### [facility] [address] [place] [address] Dr. Alicia Patel UA RANDOM W/MICROSCOPICon BACTERIA TRACE Abnormal NONE SEEN [facility] Comment on above: Performed By: #### T SH, LIPID, T4, FT3, CMP #### [facility] [address] [place] [address] Dr. Alicia Patel Bilirubin Ql (U) Negative Normal NEGATIVE [facility] Comment on above: Performed By: #### T SH, LIPID, T4, FT3, CMP #### [facility] [address] [place] [address] Dr. Alicia Patel CAST NONE SEEN Normal NONE SEEN [facility] Comment on above: Performed By: #### T SH, LIPID, T4, FT3, CMP #### [facility] [address] [place] [address] Dr. Alicia Patel Clarity (U) CLEAR Normal CLEAR [facility] Comment on above: Performed By: #### T SH, LIPID, T4, FT3, CMP #### [facility] [address] [address] [address] Alicia Patel Color (U) LT. YELLOW Normal YELLOW [facility] Comment on above: Performed By: #### T SH, LIPID, T4, FT3, CMP #### [facility] [address] [address] [address] Alicia Patel Crystals LM Nom (Urine sed) NONE SEEN Normal NONE SEEN [facility] Comment on above: Performed By: #### T SH, LIPID, T4, FT3, CMP #### [facility] [address] [place] [address] Dr. Alicia Patel Epithelial cells LM Ql (Urine sed) RARE Normal NONE SEEN /RARE [facility] Comment on above: Performed By: #### T SH, LIPID, T4, FT3, CMP #### [facility] [address] [place] [address] Dr. Alicia Patel Glucose Ql (U) 500 mg/dl Abnormal NEGATIVE [facility] Comment on above: Performed By: #### T SH, LIPID, T4, FT3, CMP #### [facility] [address] [place] [address] Dr. Alicia Patel Hemoglobin Ql (U) LARGE Abnormal NEGATIVE [facility] Comment on above: Performed By: #### T SH, LIPID, T4, FT3, CMP #### [facility] [address] [place] [address] Dr. Alicia Patel Ketones Ql (U) Negative Normal NEGATIVE [facility] Comment on above: Performed By: #### T SH, LIPID, T4, FT3, CMP #### [facility] [address] [place] [address] Dr. Alicia Patel LEUKOCYTES Negative Normal NEGATIVE [facility] Comment on above: Performed By: #### T SH, LIPID, T4, FT3, CMP #### [facility] [address] [address] [address] Alicia Patel MUCOUS NONE SEEN Normal NONE SEEN [facility] Comment on above: Performed By: #### T SH, LIPID, T4, FT3, CMP #### [facility] [address] [address] [address] Alicia Patel Nitrite Ql (U) Negative Normal NEGATIVE [facility] Comment on above: Performed By: #### T SH, LIPID, T4, FT3, CMP #### [facility] [address] [place] [address] Dr. Alicia Patel pH (U) 6.0 [pH] Normal 5-9 [facility] Comment on above: Performed By: #### T SH, LIPID, T4, FT3, CMP #### [facility] [address] [place] [address] Dr. Alicia Patel RBC 20-50 Abnormal 0-2 [facility] Comment on above: Performed By: #### T SH, LIPID, T4, FT3, CMP #### [facility] [address] [place] [address] Dr. Alicia Patel SPEC GRAVITY 1.020 Normal 1.005-<=1. 025 [facility] Comment on above: Performed By: #### T SH, LIPID, T4, FT3, CMP #### [facility] [address] [place] [address] Dr. Alicia Patel UA PROTEIN 100 mg/dl Abnormal NEGATIVE/ TRACE [facility] Comment on above: Performed By: #### T SH, LIPID, T4, FT3, CMP #### [facility] [address] [place] [address] Dr. Alicia Patel Urobilinogen Qn (U) 0.2 {Wil'U}/dL Normal 0.2 - 1. 0 [facility] Comment on above: Performed By: #### T SH, LIPID, T4, FT3, CMP #### [facility] [address] [place] [address] Dr. Alicia Patel WBC 0-2 Abnormal NONE SEEN [facility] Comment on above: Performed By: #### T SH, LIPID, T4, FT3, CMP #### [facility] [address] [place] [address] Dr. Alicia Patel URIC ACID SERUMon 09-13-2022 Urate [Mass/Vol] 5.8 mg/dL Normal 3.5-7.2 [facility] Comment on above: Performed By: #### U RTPCR #### [facility] [address] [place] [address] Dr. Alicia Patel URINE T PROTEIN CREAT RATIOo n 09-13-2022 Protein (U) [Mass/Vol] 122.4 mg/dL Critically high <=12.0 [facility] Comment on above: Performed By: #### U RTPCR #### [facility] [address] [place] [address] Dr. Alicia Patel UR PROT CREAT RAT 1.38 Normal [facility] Comment on above: Performed By: #### U RTPCR #### [facility] [address] [place] [address] Dr. Alicia Patel URINE CREAT 88.74 mg/dL Normal 20.00-300. 00 [facility] Comment on above: Performed By: #### U RTPCR #### [facility] [address] [place] [address] Dr. Alicia Patel VITAMIN D 25 OHon 09-13-2022 VIT D 25-OH 58.0 ng/mL Normal [facility] Comment on above: Performed By: #### T SH, LIPID, T4, FT3, CMP #### [facility] [address] [place] [address] Dr. Alicia Patel VIT D RANGES SEE BELOW Normal [facility] Comment on above: Result Comment: <20 ng/mL Vit D deficient 20 - <30 ng/mL Vit D insufficient 30 - 100 ng/mL Vit D sufficient >100 ng/mL Potential Toxicity Performed By: #### T SH, LIPID, T4, FT3, CMP #### [facility] [address] [place] [address] Dr. Alicia Patel US KIDNEYSon 09-01-2022 US KIDNEYS EXAMINATION: KIDRiki EYS HISTORY: Kidney stone COMPARISON: No [...] by: TYLER MONSIVAIS Date: 2022-09-01 09:33 Normal [facility] PSA, FREE AND TOTAL RATIOon 08-25-2022 % Free PSA 13.7 % Normal [facility] Comment on above: Result Comment: The table [...] T SH, LIPID, T4, FT3, CMP #### [facility] [address] [place] [address] Dr. Alicia Patel Prostate specific Ag [Mass/Vol] 6.2 ng/mL Critically high 0.0-4.0 [facility] Comment on above: Result Comment: Dwight JUAREZ methodology. . According to the [place] [employer], Serum PSA should decrease and [...] T SH, LIPID, T4, FT3, CMP #### [facility] [address] [place] [address] Dr. Alicia Patel PSA, Free 0.85 ng/mL Normal N/A [facility] Comment on above: Result Comment: Dwight linares ECLIA methodology. Performed By: #### T SH, LIPID, T4, FT3, CMP #### [facility] [address] [place] [address] Dr. Alicai Patel OCC BLD IMMUNO SCREENon 07-29 OCCULT BLOOD Negative Normal NEGATIVE [facility] Comment on above: Performed By: #### T SH, LIPID, T4, FT3, CMP #### [facility] [address] [place] [address] Dr. Alicia Patel CBC AUTO DIFFon 08-21-2022 BASO # 0.0 103/ul Normal 0.0-0.1 [facility] Comment on above: Performed By: #### U RTPCR #### [facility] [address] [place] [address] Dr. Alicia Patel Basophils/100 WBC (Bld) 0.3 % Normal 0.2-2.0 [facility] Comment on above: Performed By: #### U RTPCR #### [facility] [address] [place] [address] Dr. Alicia Patel EO # 0.2 103/ul Normal 0.0-0.7 [facility] Comment on above: Performed By: #### U RTPCR #### [facility] [address] [place] [address] Dr. Alicia Patel Eosinophils/100 WBC (Bld) 3.2 % Normal 0.9-7.0 [facility] Comment on above: Performed By: #### U RTPCR #### [facility] [address] [place] [address] Dr. Alicia Patel Erythrocyte distribution width (RBC) [Ratio] 12.9 % Normal 11.0-15.0 [facility] Comment on above: Performed By: #### U RTPCR #### [facility] [address] [place] [address] Dr. Alicia Patel Hematocrit (Bld) [Volume fraction] 35.4 % Critically low 42.0-54.0 [facility] Comment on above: Performed By: #### U RTPCR #### [facility] [address] [place] [address] Dr. Alicia Patel Hemoglobin (Bld) [Mass/Vol] 11.7 g/dL Critically low 14.0-18.0 [facility] Comment on above: Performed By: #### U RTPCR #### [facility] [address] [place] [address] Dr. Alicia Patel IG # 0.08 10e3/ul Critically high 0.00-0.03 [facility] Comment on above: Performed By: #### U RTPCR #### [facility] [address] [place] [address] Dr. Alicia Patel IG % 1.2 % Critically high 0.0-0.5 [facility] Comment on above: Performed By: #### U RTPCR #### [facility] [address] [place] [address] Dr. Alicia Patel LYMPH # 1.1 103/ul Critically low 1.2-3.8 [facility] Comment on above: Performed By: #### U RTPCR #### [facility] [address] [place] [address] Dr. Alicia Patel Lymphocytes/100 WBC (Bld) 16.6 % Critically low 20.5-60.0 [facility] Comment on above: Performed By: #### U RTPCR #### [facility] [address] [place] [address] Dr. Alicia Patel MANUAL DIFF REQ NO Normal [facility] Comment on above: Performed By: #### U RTPCR #### [facility] [address] [place] [address] Dr. Alicia Patel MCH (RBC) [Entitic mass] 32.4 pg Normal 25.9-34.0 [facility] Comment on above: Performed By: #### U RTPCR #### [facility] [address] [place] [address] Dr. Alicia Patel MCHC (RBC) [Mass/Vol] 33.1 g/dL Normal 29.9-35.2 [facility] Comment on above: Performed By: #### U RTPCR #### [facility] [address] [address] [address] Alicia Patel MCV (RBC) [Entitic vol] 98.1 fL Critically high 80.0-94.0 [facility] Comment on above: Performed By: #### U RTPCR #### [facility] [address] [place] [address] Dr. Alicia Patel MONO # 0.6 103/ul Normal 0.3-0.8 [facility] Comment on above: Performed By: #### U RTPCR #### [facility] [address] [place] [address] Dr. Alicia Patel Monocytes/100 WBC (Bld) 8.8 % Normal 1.7-12.0 [facility] Comment on above: Performed By: #### U RTPCR #### [facility] [address] [place] [address] Dr. Alicia Patel NEUT # 4.8 103/ul Normal 1.4-6.5 [facility] Comment on above: Performed By: #### U RTPCR #### [facility] [address] [place] [address] Dr. Alicia Patel Neutrophils/100 WBC (Bld) 69.9 % Normal 43.0-75.0 [facility] Comment on above: Performed By: #### U RTPCR #### [facility] [address] [place] [address] Dr. Alicia Patel Platelet mean volume (Bld) [Entitic vol] 10.4 fL Normal 9.5-13.5 [facility] Comment on above: Performed By: #### U RTPCR #### [facility] [address] [address] [address] Alicia Patel PLT 200 103/ul Normal 150-450 [facility] Comment on above: Performed By: #### U RTPCR #### [facility] [address] [address] [address] Alicia Patel RBC 3.61 106/ul Critically low 4.70-6.10 [facility] Comment on above: Performed By: #### U RTPCR #### [facility] [address] [address] [address] Alicia Patel WBC 6.8 103/ul Normal 4.0-11.0 [facility] Comment on above: Performed By: #### U RTPCR #### [facility] [address] [place] [address] Dr. Alicia Patel FREE T3on 08-21-2022 FREE T3 1.91 pg/mlL Critically low 2.18-3.98 [facility] Comment on above: Performed By: #### T SH, LIPID, T4, FT3, CMP #### [facility] [address] [place] [address] Dr. Alicia Patel GLYCOHEMOGLOBIN A1Con 2022 ADA RECOMMENDATION SEE BELOW Normal [facility] Comment on above: Result Comment: ADA RECOMMENDED LIMIT 4.0 - 6.0 ADA THERAPEUTIC TARGET < 7.0 ACTION SUGGESTED > 7.0 Performed By: #### T SH, LIPID, T4, FT3, CMP #### [facility] [address] [place] [address] Dr. Alicia Patel Glucose [Mass/Vol] 194 mg/dL Normal [facility] Comment on above: Performed By: #### T SH, LIPID, T4, FT3, CMP #### [facility] [address] [place] [address] Dr. Alicia Patel HbA1c (Bld) [Mass fraction] 8.4 % Critically high 4.5-6.2 [facility] Comment on above: Performed By: #### T SH, LIPID, T4, FT3, CMP #### [facility] [address] [place] [address] Dr. Alicia Patel LIPID PROFILEon 08-21-2022 CHOL-HDL RATIO NORM SEE BELOW Normal [facility] Comment on above: Result Comment: 3.3 - 4.4 LOW RISK 4.4 - 7.1 AVERAGE RISK 7.1 - 11.0 MODERATE RISK >11.0 HIGH RISK Performed By: #### T SH, LIPID, T4, FT3, CMP #### [facility] [address] [place] [address] Dr. Alicia Patel Cholesterol [Mass/Vol] 120 mg/dL Normal <=200 [facility] Comment on above: Performed By: #### T SH, LIPID, T4, FT3, CMP #### [facility] [address] [place] [address] Dr. Alicia Patel Cholesterol in HDL [Mass/Vol] 30 mg/dL Critically low 40-60 [facility] Comment on above: Performed By: #### T SH, LIPID, T4, FT3, CMP #### [facility] [address] [place] [address] Dr. Alicia Patel Cholesterol in LDL [Mass/Vol] 59.8 mg/dL Normal [facility] Comment on above: Performed By: #### T SH, LIPID, T4, FT3, CMP #### [facility] [address] [place] [address] Dr. Alicia Patel Cholesterol.total/Chol esterol in HDL [Mass ratio] 4.0 {ratio} Normal [facility] Comment on above: Performed By: #### T SH, LIPID, T4, FT3, CMP #### [facility] [address] [place] [address] Dr. Alicia Patel HDL NORMAL > or = 60 mg/dl - LO W CARDIOVASCULAR RISK <40 mg/dl - HIGH CARDIOVASCULAR RISK Normal [facility] Comment on above: Performed By: #### T SH, LIPID, T4, FT3, CMP #### [facility] [address] [place] [address] Dr. Alicia Patel LDL CALC NORMAL SEE BELOW Normal [facility] Comment on above: Result Comment: <100 mg/dl OPTIMAL 100 - 129 mg/dl NEAR OR ABOVE OPTIMAL 130 - 159 mg/dl BORDERLINE HIGH 160 - 189 mg/dl HIGH >190 mg/dl VERY HIGH Performed By: #### T SH, LIPID, T4, FT3, CMP #### [facility] [address] [place] [address] Dr. Alicia Patel Triglyceride [Mass/Vol] 151 mg/dL Critically high <=150 [facility] Comment on above: Performed By: #### T SH, LIPID, T4, FT3, CMP #### [facility] [address] [place] [address] Dr. Alicia Patel VLDL CALC 30.2 mg/dL Normal [facility] Comment on above: Performed By: #### T SH, LIPID, T4, FT3, CMP #### [facility] [address] [place] [address] Dr. Alicia Patel PROF 14(COMP METB)on 023 Albumin [Mass/Vol] 3.3 g/dL Critically low 3.4-5.0 [facility] Comment on above: Performed By: #### T SH, LIPID, T4, FT3, CMP #### [facility] [address] [place] [address] Dr. Alicia Patel Albumin/Globulin [Mass ratio] 0.9 {ratio} Normal [facility] Comment on above: Performed By: #### T SH, LIPID, T4, FT3, CMP #### [facility] [address] [place] [address] Dr. Alicia Patel ALP [Catalytic activity/Vol] 79 U/L Normal 46-116 [facility] Comment on above: Performed By: #### T SH, LIPID, T4, FT3, CMP #### [facility] [address] [place] [address] Dr. Alicia Patel ALT [Catalytic activity/Vol] 61 U/L Normal 16-63 [facility] Comment on above: Performed By: #### T SH, LIPID, T4, FT3, CMP #### [facility] [address] [place] [address] Dr. Alicia Patel Anion gap [Moles/Vol] 12.6 mmol/L Normal [facility] Comment on above: Performed By: #### T SH, LIPID, T4, FT3, CMP #### [facility] [address] [place] [address] Dr. Alicia Patel AST [Catalytic activity/Vol] 39 U/L Critically high 15-37 [facility] Comment on above: Performed By: #### T SH, LIPID, T4, FT3, CMP #### [facility] [address] [place] [address] Dr. Alicia Patel Bilirubin [Mass/Vol] 0.7 mg/dL Normal 0.2-1.0 [facility] Comment on above: Performed By: #### T SH, LIPID, T4, FT3, CMP #### [facility] [address] [place] [address] Dr. Alicia Patel Calcium [Mass/Vol] 8.9 mg/dL Normal 8.5-10.1 [facility] Comment on above: Performed By: #### T SH, LIPID, T4, FT3, CMP #### [facility] [address] [place] [address] Dr. Alicia Patel Chloride [Moles/Vol] 111 mmol/L Critically high 98-107 [facility] Comment on above: Performed By: #### T SH, LIPID, T4, FT3, CMP #### [facility] [address] [place] [address] Dr. Alicia Patel CO2 [Moles/Vol] 24.0 mmol/L Normal 21.0-32.0 [facility] Comment on above: Performed By: #### T SH, LIPID, T4, FT3, CMP #### [facility] [address] [place] [address] Dr. Alicia Patel Creatinine [Mass/Vol] 1.80 mg/dL Critically high 0.70-1.30 [facility] Comment on above: Performed By: #### T SH, LIPID, T4, FT3, CMP #### [facility] [address] [place] [address] Dr. Alicia Patel EGFR-AF BOLIVIAN 44 mL/min/1.73m2 Critically low >=60 [facility] Comment on above: Performed By: #### T SH, LIPID, T4, FT3, CMP #### [facility] [address] [place] [address] Dr. Alicia Patel EGFR-NON AF BOLIVIAN 36 mL/min/1.73m2 Critically low >=60 [facility] Comment on above: Performed By: #### T SH, LIPID, T4, FT3, CMP #### [facility] [address] [place] [address] Dr. Alicia Patel Globulin (S) [Mass/Vol] 3.5 g/dL Normal [facility] Comment on above: Performed By: #### T SH, LIPID, T4, FT3, CMP #### [facility] [address] [place] [address] Dr. Alicia Patel Glucose [Mass/Vol] 118 mg/dL Critically high 74-106 [facility] Comment on above: Performed By: #### T SH, LIPID, T4, FT3, CMP #### [facility] [address] [place] [address] Dr. Alicia Patel Potassium [Moles/Vol] 4.6 mmol/L Normal 3.5-5.1 [facility] Comment on above: Performed By: #### T SH, LIPID, T4, FT3, CMP #### [facility] [address] [place] [address] Dr. Alicia Patel Protein [Mass/Vol] 6.8 g/dL Normal 6.4-8.2 [facility] Comment on above: Performed By: #### T SH, LIPID, T4, FT3, CMP #### [facility] [address] [place] [address] Dr. Alicia Patel Sodium [Moles/Vol] 143 mmol/L Normal 136-145 [facility] Comment on above: Performed By: #### T SH, LIPID, T4, FT3, CMP #### [facility] [address] [place] [address] Dr. Alicia Patel Urea nitrogen [Mass/Vol] 31.0 mg/dL Critically high 7.0-18.0 [facility] Comment on above: Performed By: #### T SH, LIPID, T4, FT3, CMP #### [facility] [address] [address] [address] Alicia Patel Urea nitrogen/Creatinine [Mass ratio] 17.2 mg/mg Normal [facility] Comment on above: Performed By: #### T SH, LIPID, T4, FT3, CMP #### [facility] [address] [place] [address] Dr. Alicia Patel T4on 08-21-2022 T4 [Mass/Vol] 7.70 ug/dL Normal 4.50-12.10 [facility] Comment on above: Performed By: #### T SH, LIPID, T4, FT3, CMP #### [facility] [address] [place] [address] Dr. Alicia Patel TSHon 08-21-2022 TSH 1.138 uIU/mL Normal 0.358-3.74 0 [facility] Comment on above: Performed By: #### T SH, LIPID, T4, FT3, CMP #### [facility] [address] [place] [address] Dr. Alicia Patel RENAL FUNCTION PANELon 08-18 Albumin [Mass/Vol] 3.3 g/dL Critically low 3.4-5.0 [facility] Comment on above: Performed By: #### U RTPCR #### [facility] [address] [place] [address] Dr. Alicia Patel Calcium [Mass/Vol] 8.3 mg/dL Critically low 8.5-10.1 [facility] Comment on above: Performed By: #### U RTPCR #### [facility] [address] [place] [address] Dr. Alicia Patel Chloride [Moles/Vol] 109 mmol/L Critically high 98-107 [facility] Comment on above: Performed By: #### U RTPCR #### [facility] [address] [place] [address] Dr. Alicia Patel CO2 [Moles/Vol] 22.1 mmol/L Normal 21.0-32.0 [facility] Comment on above: Performed By: #### U RTPCR #### [facility] [address] [address] [address] Alicia Patel Creatinine [Mass/Vol] 2.14 mg/dL Critically high 0.70-1.30 [facility] Comment on above: Performed By: #### U RTPCR #### [facility] [address] [address] [address] Alicia Patel EGFR-AF BOLIVIAN 36 mL/min/1.73m2 Critically low >=60 [facility] Comment on above: Performed By: #### U RTPCR #### [facility] [address] [address] [address] Alicia Patel EGFR-NON AF BOLIVIAN 30 mL/min/1.73m2 Critically low >=60 [facility] Comment on above: Performed By: #### U RTPCR #### [facility] [address] [address] [address] Alicia Patel Glucose [Mass/Vol] 102 mg/dL Normal 74-106 [facility] Comment on above: Performed By: #### U RTPCR #### [facility] [address] [address] [address] Alicia Patel Phosphate [Mass/Vol] 3.1 mg/dL Normal 2.6-4.7 [facility] Comment on above: Performed By: #### U RTPCR #### [facility] [address] [address] [address] Alicia Patel Potassium [Moles/Vol] 3.9 mmol/L Normal 3.5-5.1 [facility] Comment on above: Performed By: #### U RTPCR #### [facility] [address] [address] [address] Alicia Patel Sodium [Moles/Vol] 141 mmol/L Normal 136-145 [facility] Comment on above: Performed By: #### U RTPCR #### [facility] [address] [address] [address] Alicia Patel Urea nitrogen [Mass/Vol] 41.0 mg/dL Critically high 7.0-18.0 [facility] Comment on above: Performed By: #### U RTPCR #### [facility] [address] [address] [address] Alicia Patel Creatinine and Glomerular fi ltration rate.predicted panel (S/P/Bld)Ordered By: Hiral Interiano on 08-15-2022 Creatinine [Mass/Vol] 3.46 mg/dL 0.64-1.27 [facility] Comment on above: Delta: 6.60 on 08/14 Estimated glomerular filtrat ion rate (GFR) non- AmericanOrdered By: Hiral Interiano on 08-15-2022 GFR/1.73 sq M.predicted among non-blacks MDRD (S/P/Bld) [Vol rate/Area] 17 mL/Min [facility] Glucose Glucometer (BldC) [M ass/Vol]Ordered By: Hiral Interiano on 08-15-2022 Glucose [Mass/Vol] 135 mg/dL [facility] Comment on above: Random Glucose Refer ence Range is dependent on time and content of last meal. Glucose of more than 200 mg/dL in a nonstressed, ambulatory subject supports the diagnosis of Diabetes Mellitus. No Panel InformationOrdered By: Hiral Interiano on 08-15-2022 Estimated GFR () 21 mL/Min [facility] Comment on above: GFR estimated refere nce range: According to KDOQI guidelines, <60 ml/min/1.73m2 is sufficient to diagnose a patient with chronic kidney disease. Pharmacy Creatinine Clearance (Chem 21.94 [facility] Serum or plasma anion gap de terminationOrdered By: Hiral Interiano on 08-15-2022 Anion gap [Moles/Vol] 10.3 mmol/L 6.0-15.0 [facility] Serum or plasma calcium alpesh urement (mass/volume)Ordered By: Hiral Interiano on 08-15-2022 Calcium [Mass/Vol] 7.7 mg/dL 8.2-10.2 [facility] Serum or plasma chloride adina surement (moles/volume)Ordered By: Hiral Interiano on 08-15-2022 Chloride [Moles/Vol] 112 mmol/L 95-114 [facility] Serum or plasma glucose alpesh urement (mass/volume)Ordered By: Hiral Interiano on 08-15-2022 Glucose [Mass/Vol] 140 mg/dL 70-100 [facility] Comment on above: ADA recommended refe rence rangeRandom Glucose Reference Range is dependent on time and content of last meal. Glucose of more than 200 mg/dL in a nonstressed, ambulatory subject supports the diagnosis of Diabetes Mellitus. Serum or plasma potassium me asurement (moles/volume)Ordered By: Hiral Interiano on 08-15-2022 Potassium [Moles/Vol] 3.8 mmol/L 3.5-5.1 [facility] Serum or plasma sodium measu rement (moles/volume)Ordered By: Hiral Interiano on 08-15-2022 Sodium [Moles/Vol] 140 mmol/L 136-146 [facility] Serum or plasma total carbon dioxide measurement (moles/volume)Ordered By: Hiral Interiano on 08-15-2022 CO2 [Moles/Vol] 21.5 mmol/L 22.0-30.0 [facility] Serum or plasma urea nitroge n measurement (mass/volume)Ordered By: Hiral Interiano on 08-15-2022 Urea nitrogen [Mass/Vol] 45 mg/dL 9-23 [facility] Basophils Auto (Bld) [#/Vol] Ordered By: Hiral Interiano on 08-14-2022 Basophils (Bld) [#/Vol] 0.0 10*3/uL 0.0-0.2 [facility] Basophils/100 WBC Auto (Bld) Ordered By: Hiral Interiano on 08-14-2022 Basophils/100 WBC (Bld) 0.2 % . [facility] Eosinophils Auto (Bld) [#/Vo l]Ordered By: Hiral Interiano on 08-14-2022 Eosinophils (Bld) [#/Vol] 0.1 10*3/uL 0.0-0.45 [facility] Eosinophils/100 WBC Auto (Bl d)Ordered By: Hiral Interiano on 08-14-2022 Eosinophils/100 WBC (Bld) 1.0 % . [facility] Erythrocyte distribution wid th Auto (RBC) [Ratio]Ordered By: Hiral Interiano on 08-14-2022 Erythrocyte distribution width (RBC) [Ratio] 13.5 % 12.0-14.8 [facility] Hematocrit Auto (Bld) [Volum e fraction]Ordered By: Hiral Interiano on 08-14-2022 Hematocrit (Bld) [Volume fraction] 35.4 % 38.8-50.0 [facility] Hemoglobin [Mass/volume] in BloodOrdered By: Hiral Interiano on 08-14-2022 Hemoglobin (Bld) [Mass/Vol] 12.0 g/dL 13.0-17.0 [facility] Leukocytes [#/volume] correc ike for nucleated erythrocytes in Blood by Automated counOrdered By: Hiral Interiano on 08-14-2022 WBC corrected for nucl RBC Auto (Bld) [#/Vol] 7.4 10*3/uL 4.1-10.5 [facility] Lymphocytes Auto (Bld) [#/Vo l]Ordered By: Hiral Interiano on 08-14-2022 Lymphocytes (Bld) [#/Vol] 0.6 10*3/uL 1.00-4.8 [facility] Lymphocytes/100 WBC Auto (Bl d)Ordered By: Hiral Interiano on 08-14-2022 Lymphocytes/100 WBC (Bld) 7.8 % . [facility] MCH Auto (RBC) [Entitic mass ]Ordered By: Hiral Interiano on 08-14-2022 MCH (RBC) [Entitic mass] 33.0 pg 27.5-35.2 [facility] MCHC Auto (RBC) [Mass/Vol]Or dered By: Hiral Interiano on 08-14-2022 MCHC (RBC) [Mass/Vol] 33.9 g/dL 32.5-35.6 [facility] MCV Auto (RBC) [Entitic vol] Ordered By: Hiral Interiano on 08-14-2022 MCV (RBC) [Entitic vol] 97.3 fL 83.5-101 [facility] Monocytes Auto (Bld) [#/Vol] Ordered By: Hiral Interiano on 08-14-2022 Monocytes (Bld) [#/Vol] 0.8 10*3/uL 0.0-0.8 [facility] Monocytes/100 WBC Auto (Bld) Ordered By: Hiral Interiano on 08-14-2022 Monocytes/100 WBC (Bld) 11.4 % . [facility] Neutrophils Auto (Bld) [#/Vo l]Ordered By: Hiral Interiano on 08-14-2022 Neutrophils (Bld) [#/Vol] 5.9 10*3/uL 1.8-7.7 [facility] Neutrophils/100 WBC Auto (Bl d)Ordered By: Hiral Interiano on 08-14-2022 Neutrophils/100 WBC (Bld) 79.6 % . [facility] No Panel InformationOrdered By: Hiral Interiano on 08-14-2022 Bedside Glucose Comment Glu2: cleaned meter [facility] Nucleated erythrocytes [Pres ence] in Blood by Automated countOrdered By: Hiral Interiano on 08-14-2022 Nucleated RBC Auto Ql (Bld) 0.1 /100{WBC} 0-0.5 [facility] Platelet mean volume Auto (B ld) [Entitic vol]Ordered By: Hiral Interiano on 08-14-2022 Platelet mean volume (Bld) [Entitic vol] 8.4 fL 6.6-10.1 [facility] Platelets Auto (Bld) [#/Vol] Ordered By: Hiral Interiano on 08-14-2022 Platelets (Bld) [#/Vol] 121 10*3/uL 150-450 [facility] RBC Auto (Bld) [#/Vol]Ordere d By: Hiral Interiano on 08-14-2022 RBC (Bld) [#/Vol] 3.64 10*6/uL 3.90-5.60 [facility] WBC Auto (Bld) [#/Vol]Ordere d By: Hiral Interiano on 08-14-2022 WBC (Bld) [#/Vol] 7.4 10*3/uL 4.1-10.5 [facility] Body fluid albumin measureme nt (mass/volume)Ordered By: Alicia León on 08-13-2022 Albumin (Body fld) [Mass/Vol] 3.0 g/dL 3.2-5.5 [facility] Glucose mean value [Mass/vol ume] in Blood Estimated from glycated hemoglobinOrdered By: Hiral Interiano on 08-12-2022 Average glucose Estimated from glycated hemoglobin (Bld) [Mass/Vol] 212 mg/dL [facility] Hemoglobin A1c percentageOrd ered By: Hiral Interiano on 08-12-2022 HbA1c (Bld) [Mass fraction] 9.0 % 4.3-5.6 [facility] Comment on above: Increased risk for d iabetes: 5.7 - 6.4diabetes: >6.4glycemic control for adults with diabetes: <7.0 Anisocytosis LM Ql (Bld)Orde red By: Hiral Interiano on 08-11-2022 Anisocytosis Ql (Bld) Slight [facility] Band form neutrophils/100 WB C Manual cnt (Bld)Ordered By: Hiral Interiano on 08-11-2022 Band form neutrophils/100 WBC (Bld) 1 % 0-5 [facility] Beta-hydroxybutyric acid adina surementOrdered By: Alicia León on 08-11-2022 Beta hydroxybutyrate [Mass/Vol] 2.40 mmol/L 0.05-0.27 [facility] Amie cells [Presence] in Blo od by Light microscopyOrdered By: Hiral Interiano on 08-11-2022 Amie cells LM Ql (Bld) Slight [facility] CARDIAC GUIDO 3-6on 3 CK [Catalytic activity/Vol] 162 U/L Normal 39-308 [facility] Comment on above: Performed By: #### T SH, LIPID, T4, FT3, CMP #### [facility] [address] [address] [address] Alicia Patel CK.MB [Mass/Vol] 5.52 ng/mL Critically high <=3.60 [facility] Comment on above: Performed By: #### T SH, LIPID, T4, FT3, CMP #### [facility] [address] [address] [address] Alicia Patel HSTROP 19.7 pg/mL Normal 4.0-76.1 [facility] Comment on above: Result Comment: CUT- OFF POINTS HAVE BEEN ESTABLISHED BASED ON THE FOURTH UNIVERSAL DEFINITIONS OF MYOCARDIAL INFARCTION. THE UPPER REFERENCE LIMIT (URL) OF TROPONIN, DEFINED THE 99TH PERCENTILE OF cTnI DISTRIBUTION IN A REFERENCE POPULATION, HAS BEEN CONFIRMED THE DECISION THRESHOLD FOR [place] DIAGNOSIS. Performed By: #### T SH, LIPID, T4, FT3, CMP #### [facility] [address] [place] [address] Dr. Alicia Patel CK [Catalytic activity/Vol] 150 U/L Normal 39-308 [facility] Comment on above: Performed By: #### T SH, LIPID, T4, FT3, CMP #### [facility] [address] [place] [address] Dr. Alicia Patel CK.MB [Mass/Vol] 4.99 ng/mL Critically high <=3.60 [facility] Comment on above: Performed By: #### T SH, LIPID, T4, FT3, CMP #### [facility] [address] [place] [address] Dr. Alicia Patel HSTROP 16.9 pg/mL Normal 4.0-76.1 [facility] Comment on above: Result Comment: CUT- OFF POINTS HAVE BEEN ESTABLISHED BASED ON THE FOURTH UNIVERSAL DEFINITIONS OF MYOCARDIAL INFARCTION. THE UPPER REFERENCE LIMIT (URL) OF TROPONIN, DEFINED THE 99TH PERCENTILE OF cTnI DISTRIBUTION IN A REFERENCE POPULATION, HAS BEEN CONFIRMED THE DECISION THRESHOLD FOR [place] DIAGNOSIS. Performed By: #### T SH, LIPID, T4, FT3, CMP #### [facility] [address] [place] [address] Dr. Alicia Patel CARDIAC GUIDO ADMITon 023 CK [Catalytic activity/Vol] 128 U/L Normal 39-308 [facility] Comment on above: Performed By: #### T SH, LIPID, T4, FT3, CMP #### [facility] [address] [place] [address] Dr. Alicia Patel CK.MB [Mass/Vol] 4.95 ng/mL Critically high <=3.60 [facility] Comment on above: Performed By: #### T SH, LIPID, T4, FT3, CMP #### [facility] [address] [address] [address] Alicia Patel HSTROP 18.0 pg/mL Normal 4.0-76.1 [facility] Comment on above: Result Comment: CUT- OFF POINTS HAVE BEEN ESTABLISHED BASED ON THE FOURTH UNIVERSAL DEFINITIONS OF MYOCARDIAL INFARCTION. THE UPPER REFERENCE LIMIT (URL) OF TROPONIN, DEFINED THE 99TH PERCENTILE OF cTnI DISTRIBUTION IN A REFERENCE POPULATION, HAS BEEN CONFIRMED THE DECISION THRESHOLD FOR [place] DIAGNOSIS. Performed By: #### T SH, LIPID, T4, FT3, CMP #### [facility] [address] [place] [address] Dr. Alicia Patel LIZZY 188 ng/mL Critically high 16-96 [facility] Comment on above: Performed By: #### T SH, LIPID, T4, FT3, CMP #### [facility] [address] [place] [address] Dr. Alicia Patel CBC AUTO DIFFon 08-11-2022 BASO # 0.0 103/ul Normal 0.0-0.1 [facility] Comment on above: Performed By: #### T SH, LIPID, T4, FT3, CMP #### [facility] [address] [address] [address] Alicia Patel Basophils/100 WBC (Bld) 0.3 % Normal 0.2-2.0 [facility] Comment on above: Performed By: #### T SH, LIPID, T4, FT3, CMP #### [facility] [address] [place] [address] Dr. Alicia Patel EO # 0.2 103/ul Normal 0.0-0.7 [facility] Comment on above: Performed By: #### T SH, LIPID, T4, FT3, CMP #### [facility] [address] [place] [address] Dr. Alicia Patel Eosinophils/100 WBC (Bld) 1.8 % Normal 0.9-7.0 [facility] Comment on above: Performed By: #### T SH, LIPID, T4, FT3, CMP #### [facility] [address] [place] [address] Dr. Alicia Patel Erythrocyte distribution width (RBC) [Ratio] 13.2 % Normal 11.0-15.0 [facility] Comment on above: Performed By: #### T SH, LIPID, T4, FT3, CMP #### [facility] [address] [place] [address] Dr. Alicia Patel Hematocrit (Bld) [Volume fraction] 36.0 % Critically low 42.0-54.0 [facility] Comment on above: Performed By: #### T SH, LIPID, T4, FT3, CMP #### [facility] [address] [place] [address] Dr. Alicia Patel Hemoglobin (Bld) [Mass/Vol] 12.0 g/dL Critically low 14.0-18.0 [facility] Comment on above: Performed By: #### T SH, LIPID, T4, FT3, CMP #### [facility] [address] [place] [address] Dr. Alicia Patel IG # 0.34 10e3/ul Critically high 0.00-0.03 [facility] Comment on above: Performed By: #### T SH, LIPID, T4, FT3, CMP #### [facility] [address] [place] [address] Dr. Alicia Patel IG % 3.8 % Critically high 0.0-0.5 [facility] Comment on above: Performed By: #### T SH, LIPID, T4, FT3, CMP #### [facility] [address] [place] [address] Dr. Alicia Patel LYMPH # 0.5 103/ul Critically low 1.2-3.8 [facility] Comment on above: Performed By: #### T SH, LIPID, T4, FT3, CMP #### [facility] [address] [place] [address] Dr. Alicia Patel Lymphocytes/100 WBC (Bld) 5.9 % Critically low 20.5-60.0 [facility] Comment on above: Performed By: #### T SH, LIPID, T4, FT3, CMP #### [facility] [address] [place] [address] Dr. Alicia Patel MANUAL DIFF REQ NO Normal [facility] Comment on above: Performed By: #### T SH, LIPID, T4, FT3, CMP #### [facility] [address] [place] [address] Dr. Alicia Patel MCH (RBC) [Entitic mass] 32.3 pg Normal 25.9-34.0 [facility] Comment on above: Performed By: #### T SH, LIPID, T4, FT3, CMP #### [facility] [address] [place] [address] Dr. Alicia Patel MCHC (RBC) [Mass/Vol] 33.3 g/dL Normal 29.9-35.2 [facility] Comment on above: Performed By: #### T SH, LIPID, T4, FT3, CMP #### [facility] [address] [place] [address] Dr. Alicia Patel MCV (RBC) [Entitic vol] 97.0 fL Critically high 80.0-94.0 [facility] Comment on above: Performed By: #### T SH, LIPID, T4, FT3, CMP #### [facility] [address] [place] [address] Dr. Alicia Patel MONO # 0.5 103/ul Normal 0.3-0.8 [facility] Comment on above: Performed By: #### T SH, LIPID, T4, FT3, CMP #### [facility] [address] [place] [address] Dr. Alicia Patel Monocytes/100 WBC (Bld) 5.5 % Normal 1.7-12.0 [facility] Comment on above: Performed By: #### T SH, LIPID, T4, FT3, CMP #### [facility] [address] [place] [address] Dr. Alicia Patel NEUT # 7.5 103/ul Critically high 1.4-6.5 [facility] Comment on above: Performed By: #### T SH, LIPID, T4, FT3, CMP #### [facility] [address] [address] [address] Alicia Patel Neutrophils/100 WBC (Bld) 82.7 % Critically high 43.0-75.0 [facility] Comment on above: Performed By: #### T SH, LIPID, T4, FT3, CMP #### [facility] [address] [address] [address] Alicia Patel Platelet mean volume (Bld) [Entitic vol] 10.2 fL Normal 9.5-13.5 [facility] Comment on above: Performed By: #### T SH, LIPID, T4, FT3, CMP #### [facility] [address] [address] [address] Alicia Patel PLT 191 103/ul Normal 150-450 [facility] Comment on above: Performed By: #### T SH, LIPID, T4, FT3, CMP #### [facility] [address] [place] [address] Dr. Alicia Patel RBC 3.71 106/ul Critically low 4.70-6.10 [facility] Comment on above: Performed By: #### T SH, LIPID, T4, FT3, CMP #### [facility] [address] [address] [address] Alicia Patel WBC 9.0 103/ul Normal 4.0-11.0 [facility] Comment on above: Performed By: #### T SH, LIPID, T4, FT3, CMP #### [facility] [address] [place] [address] ABD/PELVIS WO CONon [...] ILA GALLEGO Date: 2022-08-11 08:38 Normal [facility] Covid-19 PCR ([facility])on 07-28 SARS-CoV-2 (COVID-19) RNA SAVANNAH+probe Ql (Unsp spec) Not detected Normal NOT DETECTED [facility] Comment on above: Result [...] for this test is supported by the [place] of Health and Human Service's declaration that [...] T SH, LIPID, T4, FT3, CMP #### [facility] [address] [place] [address] Dr. Alicia Patel ER URINE PROFILEon 3 Bilirubin Ql (U) Negative Normal NEGATIVE [facility] Comment on above: Performed By: #### T SH, LIPID, T4, FT3, CMP #### [facility] [address] [address] [address] Alicia Patel Clarity (U) CLEAR Normal CLEAR [facility] Comment on above: Performed By: #### T SH, LIPID, T4, FT3, CMP #### [facility] [address] [address] [address] Alicia Patel Color (U) LT. YELLOW Normal YELLOW [facility] Comment on above: Performed By: #### T SH, LIPID, T4, FT3, CMP #### [facility] [address] [address] [address] Alicia Patel ERUROLAND A micrscopic examina tion will be performed if indicated. Normal [facility] Comment on above: Performed By: #### T SH, LIPID, T4, FT3, CMP #### [facility] [address] [place] [address] Dr. Alicia Patel Glucose Ql (U) Negative Normal NEGATIVE [facility] Comment on above: Performed By: #### T SH, LIPID, T4, FT3, CMP #### [facility] [address] [place] [address] Dr. Alicia Patel Hemoglobin Ql (U) SMALL Abnormal NEGATIVE [facility] Comment on above: Performed By: #### T SH, LIPID, T4, FT3, CMP #### [facility] [address] [place] [address] Dr. Alicia Patel Ketones Ql (U) Negative Normal NEGATIVE [facility] Comment on above: Performed By: #### T SH, LIPID, T4, FT3, CMP #### [facility] [address] [place] [address] Dr. Alicia Patel LEUKOCYTES Negative Normal NEGATIVE [facility] Comment on above: Performed By: #### T SH, LIPID, T4, FT3, CMP #### [facility] [address] [place] [address] Dr. Alicia Patel Nitrite Ql (U) Negative Normal NEGATIVE [facility] Comment on above: Performed By: #### T SH, LIPID, T4, FT3, CMP #### [facility] [address] [place] [address] Dr. Alicia Patel pH (U) 6.0 [pH] Normal 5-9 [facility] Comment on above: Performed By: #### T SH, LIPID, T4, FT3, CMP #### [facility] [address] [place] [address] Dr. Alicia Paetl Protein (U) [Mass/Vol] 100 mg/dL Abnormal NEGAT ОЛЕГ/ TRACE [facility] Comment on above: Performed By: #### T SH, LIPID, T4, FT3, CMP #### [facility] [address] [place] [address] Dr. Alicia Patel SPEC GRAVITY 1.015 Normal 1.005-<=1. 025 [facility] Comment on above: Performed By: #### T SH, LIPID, T4, FT3, CMP #### [facility] [address] [place] [address] Dr. Alicia Patel UR MICRO IND INDICATED Normal [facility] Comment on above: Performed By: #### T SH, LIPID, T4, FT3, CMP #### [facility] [address] [place] [address] Dr. Alicia Patel Urobilinogen Qn (U) 0.2 {Wil'U}/dL Normal 0.2 - 1. 0 [facility] Comment on above: Performed By: #### T SH, LIPID, T4, FT3, CMP #### [facility] [address] [place] [address] Dr. Alicia Patel Hepatitis B virus surface Ag [Presence] in Serum or Plasma by ImmunoassayOrdered By: Alicia León on 08-11-2022 HBV surface Ag IA Ql Negative Negative [facility] Hepatitis C virus IgG Ab [Pr esence] in Serum or Plasma by ImmunoassayOrdered By: Alicia León on 08-11-2022 HCV IgG IA Ql Non-Reactive Non Reactive [facility] Hepatitis C virus RNA [Units /volume] (viral load) in Serum or Plasma by SAVANNAH with probOrdered By: Alicia León on 08-11-2022 HCV RNA SAVANNAH+probe Qn N/A [facility] Hepatitis C virus RNA [log u nits/volume] (viral load) in Serum or Plasma by SAVANNAH withOrdered By: Alicia León on 08-11-2022 HCV RNA SAVANNAH+probe [Log units/Vol] N/A [facility] - CoagulationOrde red By: Hiral Interiano on 08-11-2022 PT Coag (PPP) [Time] 12.2 s 9.0-12.9 [facility] Lymphocytes/100 WBC Manual c nt (Bld)Ordered By: Hiral Interiano on 08-11-2022 Lymphocytes/100 WBC (Bld) 5 % 18-42 [facility] Microcytes LM Ql (Bld)Ordere d By: Hiral Interiano on 08-11-2022 Microcytes Ql (Bld) Slight [facility] Monocytes/100 WBC Manual cnt (Bld)Ordered By: Hiral Interiano on 08-11-2022 Monocytes/100 WBC (Bld) 1 % 2-11 [facility] No Panel InformationOrdered By: Alicia León on 08-11-2022 Hepatitis A IgM Antibody Negative Negative [facility] Hepatitis B Core IgM Antibody Negative Negative [facility] Hepatitis C Interpretation See comment . [facility] Comment on above: Not infected with HC V unless early or acute infection issuspected (which may be delayed in an immunocompromisedindividual), or other evidence exists to indicate HCVinfection.Performed at: - [facility] [place] [id number] Director: Lee Bob PhD, Phone: [phone] Hepatitis C RNA Quantitative N/A [facility] POINT OF CARE GLUCOSEon 07-28 Glucose [Mass/Vol] 132 mg/dL Critically high 74-106 [facility] Comment on above: Performed By: #### T SH, LIPID, T4, FT3, CMP #### [facility] [address] [place] [address] Dr. Alicia Patel Glucose [Mass/Vol] 117 mg/dL Critically high 74-106 [facility] Comment on above: Performed By: #### T SH, LIPID, T4, FT3, CMP #### [facility] [address] [place] [address] Dr. Alicia Patel Glucose [Mass/Vol] 95 mg/dL Normal 74-106 [facility] Comment on above: Performed By: #### P OCGLUC #### [facility] [address] [place] [address] Dr. Alicia Patel PROF CHEM 8 (BAS METB)on Anion gap [Moles/Vol] 29.5 mmol/L Normal [facility] Comment on above: Performed By: #### T SH, LIPID, T4, FT3, CMP #### [facility] [address] [place] [address] Dr. Alicia Patel Calcium [Mass/Vol] 7.7 mg/dL Critically low 8.5-10.1 [facility] Comment on above: Performed By: #### T SH, LIPID, T4, FT3, CMP #### [facility] [address] [place] [address] Dr. Alicia Patel Chloride [Moles/Vol] 102 mmol/L Normal 98-107 [facility] Comment on above: Performed By: #### T SH, LIPID, T4, FT3, CMP #### [facility] [address] [place] [address] Dr. Alicia Patel CO2 [Moles/Vol] 13.5 mmol/L Critically low 21.0-32.0 [facility] Comment on above: Performed By: #### T SH, LIPID, T4, FT3, CMP #### [facility] [address] [place] [address] Dr. Alicia Patel Creatinine [Mass/Vol] 17.89 mg/dL Critically high 0.70-1.3 0 [facility] Comment on above: Performed By: #### T SH, LIPID, T4, FT3, CMP #### [facility] [address] [place] [address] Dr. Alicia Patel EGFR-AF BOLIVIAN 3 mL/min/1.73m2 Critically low >=60 [facility] Comment on above: Performed By: #### T SH, LIPID, T4, FT3, CMP #### [facility] [address] [address] [address] Alicia Patel EGFR-NON AF BOLIVIAN 3 mL/min/1.73m2 Critically low >=60 [facility] Comment on above: Performed By: #### T SH, LIPID, T4, FT3, CMP #### [facility] [address] [address] [address] Alicia Patel Glucose [Mass/Vol] 105 mg/dL Normal 74-106 [facility] Comment on above: Performed By: #### T SH, LIPID, T4, FT3, CMP #### [facility] [address] [address] [address] Alicia Patel Potassium [Moles/Vol] 7.0 mmol/L Critically high 3.5-5.1 [facility] Comment on above: Performed By: #### T SH, LIPID, T4, FT3, CMP #### [facility] [address] [address] [address] Alicia Patel Sodium [Moles/Vol] 138 mmol/L Normal 136-145 [facility] Comment on above: Performed By: #### T SH, LIPID, T4, FT3, CMP #### [facility] [address] [address] [address] Alicia Patel Urea nitrogen [Mass/Vol] 156.0 mg/dL Critically high 7.0-18.0 [facility] Comment on above: Performed By: #### T SH, LIPID, T4, FT3, CMP #### [facility] [address] [address] [address] Alicia Patel Urea nitrogen/Creatinine [Mass ratio] 8.7 mg/mg Normal [facility] Comment on above: Performed By: #### T SH, LIPID, T4, FT3, CMP #### [facility] [address] [address] [address] Alicia Patel Platelet adequacy [Presence] in Blood by Light microscopyOrdered By: Hiral Interiano on 08-11-2022 Platelets LM Ql (Bld) Normal Normal [facility] Platelet morphology finding [Identifier] in BloodOrdered By: Hiral Interiano on 08-11-2022 Platelet morphology finding Nom (Bld) Normal Normal [facility] Platelet poor plasma interna tional normalized ratio (INR) by coagulation assay (relatOrdered By: Hiral Interiano on 08-11-2022 INR Coag (PPP) [Relative time] 1.0 {INR} [facility] Comment on above: INR Therapeutic Rang [...] on 08-11-2022 Poikilocytosis LM Ql (Bld) Slight [facility] RBC morphologyOrdered By: Elaine Interiano on 08-11-2022 RBC morphology finding Nom (Bld) N/A [facility] Segmented neutrophils/100 WB C Manual cnt (Bld)Ordered By: Hiral Interiano on 08-11-2022 Segmented neutrophils/100 WBC (Bld) 94 % 50-70 [facility] Troponin I.cardiac [Mass/vol ume] in Serum or Plasma by High sensitivity methodOrdered By: Hiral Interiano on 08-11-2022 Troponin I.cardiac High sensitivity method [Mass/Vol] 42 pg/mL 0-20 [facility] URINE MICROSCOPIC ONLYon BACTERIA TRACE Abnormal NONE SEEN [facility] Comment on above: Performed By: #### T SH, LIPID, T4, FT3, CMP #### [facility] [address] [address] [address] Alicia Patel Bacteria identified Cx Nom (U) NOT INDICATED Normal [facility] Comment on above: Performed By: #### T SH, LIPID, T4, FT3, CMP #### [facility] [address] [place], [place] [address] Dr. Alicia Patel CAST NONE SEEN Normal NONE SEEN [facility] Comment on above: Performed By: #### T SH, LIPID, T4, FT3, CMP #### [facility] [address] [address] [address] Alicia Patel Crystals LM Nom (Urine sed) NONE SEEN Normal NONE SEEN [facility] Comment on above: Performed By: #### T SH, LIPID, T4, FT3, CMP #### [facility] [address] [address] [address] Alicia Patel Epithelial cells LM Ql (Urine sed) RARE Normal NONE SEEN /RARE [facility] Comment on above: Performed By: #### T SH, LIPID, T4, FT3, CMP #### [facility] [address] [address] [address] Alicia Patel MUCOUS NONE SEEN Normal NONE SEEN [facility] Comment on above: Performed By: #### T SH, LIPID, T4, FT3, CMP #### [facility] [address] [address] [address] Alicia Patel RBC 2-5 Abnormal 0-2 [facility] Comment on above: Performed By: #### T SH, LIPID, T4, FT3, CMP #### [facility] [address] [address] [address] Alicia Patel WBC 2-5 Abnormal NONE SEEN [facility] Comment on above: Performed By: #### T SH, LIPID, T4, FT3, CMP #### [facility] [address] [address] [address] Alicia Patel XR CHEST 1 Von [...] YOGESH BYERS Date: 2022-08-11 04:27 Normal [facility] Covid-19 PCR (CVDTB)on SARS-CoV-2 (COVID-19) RNA SAVANNAH+probe Ql (Unsp spec) Not detected Normal NOT DETECTED [facility] Comment on above: Result Comment: This test is not yet approved or cleared by the [place] FDA. When there are no FDA-approved or cleared tests available, and other criteria are met, FDA can make tests available under an emergency access mechanism called an Emergency Use Authorization (EUA). The EUA for this test is supported by the [place] Of [place] of Health and Human Service's (HHS's) declaration [...] T SH, LIPID, T4, FT3, CMP #### [facility] [address] [place] [address] Dr. Alicia Patel INFLUENZA A AND B AGon 08-02 [facility] SEE BELOW Normal [facility] Comment on above: Result Comment: Nega tive for Flu A protein angiten. Infection due to Flu A cannot be ruled out. Flu A angiten in the sample may be below the detection limit of the test. Performed By: #### T SH, LIPID, T4, FT3, CMP #### [facility] [address] [place] [address] [facility] SEE BELOW Normal [facility] Comment on above: Result Comment: Nega tive for Flu B protein antigen. Infection due to Flu B cannot be ruled out. Flu B antigen in the sample may be below the detection limit of the test. Performed By: #### T SH, LIPID, T4, FT3, CMP #### [facility] [address] [place] [address] Dr. Alicia Patel INFLUENZA A AG Negative Normal NEGATIVE SEE COMMENT [facility] Comment on above: Performed By: #### T SH, LIPID, T4, FT3, CMP #### [facility] [address] [place] [address] Dr. Alicia Patel INFLUENZA B AG Negative Normal NEGATIVE SEE COMMENT [facility] Comment on above: Performed By: #### T SH, LIPID, T4, FT3, CMP #### [facility] [address] [place] [address] Dr. Alicia Patel PTH INTACTon 05-25-2022 PTH, Intact 47 pg/mL Normal 15-65 [facility] Comment on above: Performed By: #### T SH, LIPID, T4, FT3, CMP #### [facility] [address] [place] [address] Dr. Alicia Patel ALBUMINon 05-24-2022 Albumin [Mass/Vol] 3.9 g/dL Normal 3.4-5.0 [facility] Comment on above: Performed By: #### T SH, LIPID, T4, FT3, CMP #### [facility] [address] [place] [address] Dr. Alicia Patel HEMOGRAM AND PLATELon 2021 Hematocrit (Bld) [Volume fraction] 42.1 % Normal 42.0-54.0 [facility] Comment on above: Performed By: #### T SH, LIPID, T4, FT3, CMP #### [facility] [address] [place] [address] Dr. Alicia Patel Hemoglobin (Bld) [Mass/Vol] 14.7 g/dL Normal 14.0-18.0 [facility] Comment on above: Performed By: #### T SH, LIPID, T4, FT3, CMP #### [facility] [address] [place] [address] Dr. Alicia Patel MCH (RBC) [Entitic mass] 33.2 pg Normal 25.9-34.0 [facility] Comment on above: Performed By: #### T SH, LIPID, T4, FT3, CMP #### [facility] [address] [place] [address] Dr. Alicia Patel MCHC (RBC) [Mass/Vol] 34.9 g/dL Normal 29.9-35.2 [facility] Comment on above: Performed By: #### T SH, LIPID, T4, FT3, CMP #### [facility] [address] [place] [address] Dr. Alicia Patel MCV (RBC) [Entitic vol] 95.0 fL Critically high 80.0-94.0 [facility] Comment on above: Performed By: #### T SH, LIPID, T4, FT3, CMP #### [facility] [address] [place] [address] Dr. Alicia Patel PLT 190 103/ul Normal 150-450 [facility] Comment on above: Performed By: #### T SH, LIPID, T4, FT3, CMP #### [facility] [address] [place] [address] Dr. Alicia Patel RBC 4.43 106/ul Critically low 4.70-6.10 [facility] Comment on above: Performed By: #### T SH, LIPID, T4, FT3, CMP #### [facility] [address] [place] [address] Dr. Alicia Patel WBC 7.0 103/ul Normal 4.0-11.0 [facility] Comment on above: Performed By: #### T SH, LIPID, T4, FT3, CMP #### [facility] [address] [place] [address] Dr. Alicia Patel MAGNESIUMon 05-24-2022 Magnesium [Mass/Vol] 1.7 mg/dL Critically low 1.8-2.4 [facility] Comment on above: Performed By: #### T SH, LIPID, T4, FT3, CMP #### [facility] [address] [place] [address] Dr. Alicia Patel PHOSPHORUSon 05-24-2022 Phosphate [Mass/Vol] 3.7 mg/dL Normal 2.6-4.7 [facility] Comment on above: Performed By: #### T SH, LIPID, T4, FT3, CMP #### [facility] [address] [address] [address] Alicia Patel PROF CHEM 8 (BAS METB)on Anion gap [Moles/Vol] 11.2 mmol/L Normal Th [facility] Comment on above: Performed By: #### U RTPCR #### [facility] [address] [place] [address] Dr. Alicia Patel Calcium [Mass/Vol] 9.1 mg/dL Normal 8.5-10.1 [facility] Comment on above: Performed By: #### U RTPCR #### [facility] [address] [place] [address] Dr. Alicia Patel Chloride [Moles/Vol] 104 mmol/L Normal 98-107 [facility] Comment on above: Performed By: #### U RTPCR #### [facility] [address] [place] [address] Dr. Alicia Patel CO2 [Moles/Vol] 29.2 mmol/L Normal 21.0-32.0 [facility] Comment on above: Performed By: #### U RTPCR #### [facility] [address] [place] [address] Dr. Alicia Patel Creatinine [Mass/Vol] 1.40 mg/dL Critically high 0.70-1.30 [facility] Comment on above: Performed By: #### U RTPCR #### [facility] [address] [place] [address] Dr. Alicia Patel EGFR-AF BOLIVIAN 59 mL/min/1.73m2 Critically low >=60 [facility] Comment on above: Performed By: #### U RTPCR #### [facility] [address] [place] [address] Dr. Alicia Patel EGFR-NON AF BOLIVIAN 49 mL/min/1.73m2 Critically low >=60 [facility] Comment on above: Performed By: #### U RTPCR #### [facility] [address] [place] [address] Dr. Alicia Patel Glucose [Mass/Vol] 148 mg/dL Critically high 74-106 T [facility] Comment on above: Performed By: #### U RTPCR #### [facility] [address] [place] [address] Dr. Alicia Patel Potassium [Moles/Vol] 4.4 mmol/L Normal 3.5-5.1 [facility] Comment on above: Performed By: #### U RTPCR #### [facility] [address] [place] [address] Dr. Alicia Patel Sodium [Moles/Vol] 140 mmol/L Normal 136-145 [facility] Comment on above: Performed By: #### U RTPCR #### [facility] [address] [place] [address] Dr. Alicia Patel Urea nitrogen [Mass/Vol] 16.0 mg/dL Normal 7.0-18.0 [facility] Comment on above: Performed By: #### U RTPCR #### [facility] [address] [place] [address] Dr. Alicia Patel Urea nitrogen/Creatinine [Mass ratio] 11.4 mg/mg Normal [facility] Comment on above: Performed By: #### U RTPCR #### [facility] [address] [place] [address] Dr. Alicia Patel UA RANDOM W/MICROSCOPICon BACTERIA NONE SEEN Normal NONE SEEN [facility] Comment on above: Performed By: #### T SH, LIPID, T4, FT3, CMP #### [facility] [address] [place] [address] Dr. Alicia Patel Bilirubin Ql (U) Negative Normal NEGATIVE [facility] Comment on above: Performed By: #### T SH, LIPID, T4, FT3, CMP #### [facility] [address] [place] [address] Dr. Alicia Patel CAST NONE SEEN Normal NONE SEEN [facility] Comment on above: Performed By: #### T SH, LIPID, T4, FT3, CMP #### [facility] [address] [place] [address] Dr. Alicia Patel Clarity (U) CLEAR Normal CLEAR [facility] Comment on above: Performed By: #### T SH, LIPID, T4, FT3, CMP #### [facility] [address] [address] [address] Alicia Patel Color (U) LT. YELLOW Normal YELLOW [facility] Comment on above: Performed By: #### T SH, LIPID, T4, FT3, CMP #### [facility] [address] [address] [address] Alicia Patel Crystals LM Nom (Urine sed) NONE SEEN Normal NONE SEEN [facility] Comment on above: Performed By: #### T SH, LIPID, T4, FT3, CMP #### [facility] [address] [address] [address] Alicia Patel Epithelial cells LM Ql (Urine sed) FEW Abnormal NONE SEEN /RARE [facility] Comment on above: Performed By: #### T SH, LIPID, T4, FT3, CMP #### [facility] [address] [address] [address] Alicia Patel Glucose Ql (U) Negative Normal NEGATIVE [facility] Comment on above: Performed By: #### T SH, LIPID, T4, FT3, CMP #### [facility] [address] [address] [address] Alicia Patel Hemoglobin Ql (U) Negative Normal NEGATIVE [facility] Comment on above: Performed By: #### T SH, LIPID, T4, FT3, CMP #### [facility] [address] [address] [address] Alicia Patel Ketones Ql (U) Negative Normal NEGATIVE [facility] Comment on above: Performed By: #### T SH, LIPID, T4, FT3, CMP #### [facility] [address] [address] [address] Alicia Patel LEUKOCYTES Negative Normal NEGATIVE [facility] Comment on above: Performed By: #### T SH, LIPID, T4, FT3, CMP #### [facility] [address] [address] [address] Alicia Patel MUCOUS NONE SEEN Normal NONE SEEN [facility] Comment on above: Performed By: #### T SH, LIPID, T4, FT3, CMP #### [facility] [address] [place] [address] Dr. Alicia Patel Nitrite Ql (U) Negative Normal NEGATIVE [facility] Comment on above: Performed By: #### T SH, LIPID, T4, FT3, CMP #### [facility] [address] [address] [address] Alicia Patel pH (U) 5.5 [pH] Normal 5-9 [facility] Comment on above: Performed By: #### T SH, LIPID, T4, FT3, CMP #### [facility] [address] [place] [address] Dr. Alicia Patel RBC NONE SEEN Abnormal 0-2 [facility] Comment on above: Performed By: #### T SH, LIPID, T4, FT3, CMP #### [facility] [address] [place] [address] Dr. Alicia Patel SPEC GRAVITY 1.020 Normal 1.005-<=1. 025 [facility] Comment on above: Performed By: #### T SH, LIPID, T4, FT3, CMP #### [facility] [address] [place] [address] Dr. Alicia Patel UA PROTEIN Negative Normal NEGATIVE/ TRACE [facility] Comment on above: Performed By: #### T SH, LIPID, T4, FT3, CMP #### [facility] [address] [place] [address] Dr. Alicia Patel Urobilinogen Qn (U) 0.2 {Wil'U}/dL Normal 0.2 - 1. 0 [facility] Comment on above: Performed By: #### T SH, LIPID, T4, FT3, CMP #### [facility] [address] [place] [address] Dr. Alicia Patel WBC NONE SEEN Normal NONE SEEN [facility] Comment on above: Performed By: #### T SH, LIPID, T4, FT3, CMP #### [facility] [address] [place] [address] Dr. Alicia Patel URIC ACID SERUMon 05-24-2022 Urate [Mass/Vol] 5.6 mg/dL Normal 3.5-7.2 [facility] Comment on above: Performed By: #### T SH, LIPID, T4, FT3, CMP #### [facility] [address] [address] [address] Alicia Patel URINE T PROTEIN CREAT RATIOo n 05-24-2022 Protein (U) [Mass/Vol] 26.0 mg/dL Critically high <=12.0 [facility] Comment on above: Performed By: #### T SH, LIPID, T4, FT3, CMP #### [facility] [address] [address] [address] Alicia Patel UR PROT CREAT RAT 0.34 Normal [facility] Comment on above: Performed By: #### T SH, LIPID, T4, FT3, CMP #### [facility] [address] [address] [address] Alicia Patel URINE CREAT 77.39 mg/dL Normal 20.00-300. 00 [facility] Comment on above: Performed By: #### T SH, LIPID, T4, FT3, CMP #### [facility] [address] [address] [address] Alicia Patel Vital Signs Date Time Vital Sign Value Performing Clinician Facility 12-03-2024 14:15040 Body height 177.8 cm [facility] 12-03-2024 14:15040 Body mass index (BMI) [Ratio] 40.3 kg/m2 [facility] 12-03-2024 14:15040 Body weight 127.45 kg [facility] 12-03-2024 14:15040 Diastolic blood pressure 68 mm[Hg] [facility] 12-03-2024 14:15-0400 Heart rate 81 /min [facility] 12-03-2024 14:15040 Respiratory rate 18 /min [facility] 12-03-2024 14:15-0400 SaO2% (BldA) [Mass fraction] 95 % [facility] 12-03-2024 14:15040 Systolic blood pressure 126 mm[Hg] [facility] 06-12-2024 11:27-0500 Blood Pressure Location Ni OLIVARES [facility] 06-12-2024 11:27-0500 Diastolic blood pressure 70 mm[Hg] Ni OLIVARES [facility] 06-12-2024 11:27-0500 Heart rate 62 /min Ni OLIVARES [facility] 06-12-2024 11:27-0500 Systolic blood pressure 145 mm[Hg] Ni [facility] 12-20-2023 11:49-0400 Body height 175.26 cm MD Jose Alfaro Work Phone: [facility] 12-20-2023 11:49-0400 Body mass index (BMI) [Ratio] 39.4 kg/m2 MD Jose Alfaro Work Phone: [facility] 12-20-2023 11:49-0400 Body temperature 96.5 [degF] MD Jose Alfaro Work Phone: [facility] 12-20-2023 11:49-0400 Body weight 121.33 kg MD Jose Alfaro Work Phone: [facility] 12-20-2023 11:49-0400 Diastolic blood pressure 74 mm[Hg] MD Jose Alfaro Work Phone: [facility] 12-20-2023 11:49-0400 Heart rate 83 /min MD Jose Alfaro Work Phone: [facility] 12-20-2023 11:49-0400 Respiratory rate 20 /min MD Jose Alfaro Work Phone: [facility] 12-20-2023 11:49-0400 SaO2% (BldA) [Mass fraction] 94 % MD Jose Alfaro Work Phone: [facility] 12-20-2023 11:49-0400 Systolic blood pressure 135 mm[Hg] MD Jose Alfaro Work Phone: [facility] 06-14-2023 11:00-0500 Body height 175.26 cm Alicia Brit Other [facility] 06-14-2023 11:00-0500 Body mass index (BMI) [Ratio] 38.51 kg/m2 Alicia Brit Other [facility] 06-14-2023 11:00-0500 Body temperature 97.2 [degF] Alicia Brit Other [facility] 06-14-2023 11:00-0500 Body weight 118.3 kg Alicia Brit Other [facility] 06-14-2023 11:00-0500 Diastolic blood pressure 72 mm[Hg] Alicia Brit Other [facility] 06-14-2023 11:00-0500 Respiratory rate 18 /min Alicia Brit Other [facility] 06-14-2023 11:00-0500 SaO2% (BldA) [Mass fraction] 95 % Alicia Brit Other [facility] 06-14-2023 11:00-0500 Systolic blood pressure 122 mm[Hg] Alicia Brit Other [facility] 11-29-2022 10:20-0400 Body height 175.26 cm Alicia Brit Other [facility] 11-29-2022 10:20-0400 Body mass index (BMI) [Ratio] 36.77 kg/m2 Alicia Brit Other [facility] 11-29-2022 10:20-0400 Body temperature 96.3 [degF] Alicia Brit Other [facility] 11-29-2022 10:20-0400 Body weight 112.95 kg Alicia Brit Other [facility] 11-29-2022 10:20-0400 Diastolic blood pressure 72 mm[Hg] Alicia Brit Other [facility] 11-29-2022 10:20-0400 Respiratory rate 18 /min Alicia Brit Other [facility] 11-29-2022 10:20-0400 SaO2% (BldA) [Mass fraction] 96 % Alicia Brit Other [facility] 11-29-2022 10:20-0400 Systolic blood pressure 137 mm[Hg] Laicia Brit Other [facility] 10-07-2022 17:25-0400 Heart rate 66 /min [facility] 10-07-2022 17:25-0400 SaO2% (BldA) [Mass fraction] 92 % [facility] 10-07-2022 17:25-0400 Respiratory rate 16 /min [facility] 04-13-2023 17:24-0400 Body temperature 97.7 [degF] [facility] 10-07-2022 17:24-0400 Diastolic blood pressure 74 mm[Hg] [facility] 10-07-2022 17:24-0400 Mean blood pressure 106 mm[Hg] [facility] 10-07-2022 17:24-0400 Systolic blood pressure 170 mm[Hg] [facility] 10-07-2022 16:18-0400 Heart rate 61 /min [facility] 10-07-2022 16:18-0400 SaO2% (BldA) [Mass fraction] 95 % [facility] 10-07-2022 16:17-0400 Diastolic blood pressure 81 mm[Hg] [facility] 10-07-2022 16:17-0400 Mean [...] 16:11-0400 Respiratory rate 17 /min Ni OLIVARES [facility] 10-07-2022 16:11-0400 SaO2% (BldA) [Mass fraction] 97 % [facility] 10-07-2022 16:11-0400 Systolic blood pressure 144 mm[Hg] [facility] 10-07-2022 16:00-0400 Mean blood pressure 92 mm[Hg] Ni OLIVARES [facility] 10-07-2022 16:00-0400 Respiratory rate 13 /min [facility] 10-07-2022 15:55-0400 Mean blood pressure 86 mm[Hg] [facility] 10-07-2022 15:55-0400 Respiratory rate 17 /min Ni OLIVARES [facility] 10-07-2022 15:46-0400 Body temperature 98.06 [degF] [facility] 10-07-2022 15:40-0400 Respiratory rate 15 /min [facility] 10-07-2022 10:14-0400 Mean blood pressure 97 mm[Hg] Ni OLIVARES [facility] 10-07-2022 10:14-0400 Blood Pressure Location Ni OLIVARES [facility] 10-07-2022 10:13-0400 Heart rate 64 /min [facility] 10-07-2022 10:12-0400 Body temperature 98.06 [degF] [facility] 10-07-2022 10:12-0400 Blood Pressure Location Ni OLIVARES [facility] 09-15-2022 14:40-0400 Body height 175.26 cm Alicia Brit Other [facility] 09-15-2022 14:40-0400 Body mass index (BMI) [Ratio] 37.48 kg/m2 Alicia Brit Other [facility] 09-15-2022 14:40-0400 Body weight 115.12 kg Alicia Brit Other [facility] 09-15-2022 14:40-0400 Diastolic blood pressure 73 mm[Hg] Alicia Brit Other [facility] 09-15-2022 14:40-0400 Respiratory rate 18 /min Alicia Brit Other [facility] 09-15-2022 14:40-0400 SaO2% (BldA) [Mass fraction] 97 % Alicia Brit Other [facility] 09-15-2022 14:40-0400 Systolic blood pressure 138 mm[Hg] Alicia Brit Other [facility] 09-06-2022 10:01-0400 Blood Pressure Location Ni OLIVARES [facility] 09-06-2022 10:01-0400 Diastolic blood pressure 70 mm[Hg] Ni OLIVARES [facility] 09-06-2022 10:01-0400 Heart rate 68 /min Ni OLIVARES [facility] 09-06-2022 10:01-0400 Systolic blood pressure 132 mm[Hg] Ni OLIVARES [facility] 08-15-2022 12:16-0500 Body temperature 97.8 [degF] MD Jose Alfaro Work Phone: [facility] 08-15-2022 12:16-0500 Diastolic blood pressure 92 mm[Hg] MD Jose Alfaro Work Phone: [facility] 08-15-2022 12:16-0500 Heart rate 68 /min MD Jose Alfaro Work Phone: [facility] 08-15-2022 12:16-0500 Respiratory rate 18 /min MD Jose Alfaro Work Phone: [facility] 08-15-2022 12:16-0500 SaO2% (BldA) [Mass fraction] 95 % MD Jose Alfaro Work Phone: [facility] 08-15-2022 12:16-0500 Systolic blood pressure 146 mm[Hg] MD Jose Alfaro Work Phone: [facility] 08-15-2022 05:08-0500 Body weight 118.2 kg MD Jose Alfaro Work Phone: [facility] 08-13-2022 13:10-0500 Inhaled oxygen flow rate 8 L/min MD Jose Alfaro Work Phone: [facility] 08-13-2022 11:54-0500 Body height 177.8 cm MD Jose Alfaro Work Phone: [facility] 08-13-2022 11:54-0500 Body mass index (BMI) [Ratio] 37.3 kg/m2 MD Jose Alfaro Work Phone: [facility] 06-01-2022 11:40-0500 Body height 175.26 cm Alicia Brit Other [facility] 06-01-2022 11:40-0500 Body mass index (BMI) [Ratio] 37.77 kg/m2 Alicia Brit Other [facility] 06-01-2022 11:40-0500 Body temperature 97.5 [degF] Alicia Brit Other [facility] 06-01-2022 11:40-0500 Body weight 116.03 kg Alicia Brit Other [facility] 06-01-2022 11:40-0500 Diastolic blood pressure 71 mm[Hg] Alicia Brit Other [facility] 06-01-2022 11:40-0500 Respiratory rate 18 /min Alicia Brit Other [facility] 06-01-2022 11:40-0500 SaO2% (BldA) [Mass fraction] 93 % Alicia Brit Other [facility] 06-01-2022 11:40-0500 Systolic blood pressure 134 mm[Hg] Alicia Brit Other [facility] 11-24-2021 11:20-0400 Body height 175.26 cm Alicia Brit Other [facility] 11-24-2021 11:20-0400 Body mass index (BMI) [Ratio] 36.26 kg/m2 Alicia Brit Other [facility] 11-24-2021 11:20-0400 Body temperature 96.4 [degF] Alicia Brit Other [facility] 11-24-2021 11:20-0400 Body weight 111.4 kg Alicia Brit Other [facility] 11-24-2021 11:20-0400 Diastolic blood pressure 72 mm[Hg] Alicia Brit Other [facility] 11-24-2021 11:20-0400 Respiratory rate 18 /min Alicia Brit Other [facility] 11-24-2021 11:20-0400 SaO2% (BldA) [Mass fraction] 95 % Alicia Brit Other [facility] 11-24-2021 11:20-0400 Systolic blood pressure 139 mm[Hg] Alicia Brit Other [facility] 10-26-2021 09:17-0400 Blood Pressure Location Milton BRAUN [facility] 10-26-2021 09:17-0400 Diastolic blood pressure 69 mm[Hg] Milton BRAUN [facility] 10-26-2021 09:17-0400 Heart rate 64 /min Milton BRAUN [facility] 10-26-2021 09:17-0400 Respiratory rate 16 /min Milton BRAUN [facility] 10-26-2021 09:17-0400 Systolic blood pressure 139 mm[Hg] Milton BRAUN [facility] 05-26-2021 11:00-0500 Body height 175.26 cm Alicia Brit Other [facility] 05-26-2021 11:00-0500 Body mass index (BMI) [Ratio] 34.4 kg/m2 Alicia Brit Other [facility] 05-26-2021 11:00-0500 Body temperature 96.9 [degF] Alicia Brit Other [facility] 05-26-2021 11:00-0500 Body weight 105.69 kg Alicia Brit Other [facility] 05-26-2021 11:00-0500 Diastolic blood pressure 80 mm[Hg] Alicia Brit Other [facility] 05-26-2021 11:00-0500 Respiratory rate 18 /min Alicia Brit Other [facility] 05-26-2021 11:00-0500 SaO2% (BldA) [Mass fraction] 94 % Alicia Brit Other [facility] 05-26-2021 11:00-0500 Systolic blood pressure 136 mm[Hg] Alicia Brit Other [facility] Other Encounters Encounter Date Encounter Type Care Provider Facility Start: 06-11-2025 ambulatory Ni OLIVARES Facility :[facility] Start: 01-28-2025 End: 01-28-2025 ambulatory [facility] Start: 12-27-2024 ambulatory [facility] Start: 12-27-2024 End: 12-27-2024 ambulatory [facility] Start: 12-24-2024 End: 12-24-2024 ambulatory [facility] Start: 12-10-2024 End: 12-10-2024 ambulatory Ni OLIVARES Facility:[facility] Start: 12-10-2024 End: 12-10-2024 Lab Drop off Ni OLIVARES [facility] Start: 12-10-2024 End: 12-10-2024 ambulatory Ni OLIVARES Facility:[facility] Start: 12-10-2024 End: 12-10-2024 Patient encounter procedure Ni OLIVARES [facility] Start: 12-03-2024 End: 12-03-2024 ambulatory [facility] Work Phone: Start: 12-03-2024 End: 12-03-2024 Patient encounter procedure [facility] Work Phone: Start: 11-27-2024 Non-patient / Non-visit [facility] Work Phone: Start: 06-12-2024 End: 06-12-2024 ambulatory Ni OLIVARES Facility:[facility] Start: 06-12-2024 End: 06-12-2024 Patient encounter procedure Ni OLIVARES [facility] Start: 05-21-2024 End: 05-21-2024 ambulatory [facility] Start: 12-20-2023 End: 12-20-2023 ambulatory MD Jose Alfaro Work Phone: [facility] Work Phone: Start: 12-20-2023 End: 12-20-2023 Patient encounter procedure MD Jose Alfaro Work Phone[facility] Work [facility]: Start: 12-14-2023 Non-patient / Non-visit MD Annalisa Alfaro Work Phone[facility] Work Phone: Start: 10-26-2023 End: 10-26-2023 ambulatory JENNIFER DRISCOLL Not Available Start: 10-18-2023 End: 10-18-2023 ambulatory MD Jose Alfaro Work Phone: [facility] Work Phone: Start: 10-18-2023 End: 10-18-2023 Departed Referred MD Jose Alfaro Work Phone: [facility] Start: 09-12-2023 End: 09-12-2023 ambulatory JENNIFER DRISCOLL Not Available Start: 07-02-2023 End: 07-02-2023 Patient encounter procedure MD Jose Alfaro Work Phone: [facility] [place] Work Phone: Start: 07-02-2023 End: 07-02-2023 ambulatory MD Jose Alfaro Work Phone: [facility] Work Phone: Start: 06-28-2023 End: 06-28-2023 Patient encounter procedure MD Jose Alfaro Work Phone: [facility] [place] Work Phone: Start: 06-28-2023 End: 06-28-2023 ambulatory MD Jose Alfaro Work Phone: [facility] Work Phone: Start: 06-16-2023 End: 06-16-2023 Patient encounter procedure MD Jose Alfaro Work Phone: [facility] [place] Work Phone: Start: 06-16-2023 End: 06-16-2023 ambulatory MD Jose Alfaro Work Phone: [facility] Work Phone: Start: 06-14-2023 End: 06-14-2023 ambulatory Alicia Brit Other [employer] Other Start: 06-14-2023 Office outpatient vi sit 25 minutes Alicia Brit [facility] Start: 06-14-2023 End: 06-14-2023 Patient encounter procedure Ni OLIVARES [facility] Start: 12-20-2022 End: 12-20-2022 Patient encounter procedure Ni OLIVARES [facility] Start: 11-29-2022 End: 11-29-2022 ambulatory Alicia Brit Other [employer] Other Start: 11-29-2022 Office outpatient vi sit 25 minutes Alicia Brit [facility] Start: 11-10-2022 End: 11-24-[address] JOSE ALFARO . Facility:H1 Start: 11-08-2022 End: 11-08-[address] JOSE ALFARO . Facility:H1 Start: 11-06-2022 End: 11-07-[address] JOSE ALFARO . Facility:H1 Start: 10-29-2022 End: 10-29-2022 Patient encounter procedure Milton BRAUN [facility] [place] Start: 10-26-2022 End: 10-27-2022 ambulatory IRIS CORONEL Facility:H1 Start: 10-22-2022 End: 10-23-[address] MILTON BRAUN . Facility:H1 Start: 10-15-2022 End: 10-16-[address] JOSE ALFARO . Facility:H1 Start: 10-14-2022 End: 10-15-2022 ambulatory IRIS CORONEL Facility:H1 Start: 10-07-2022 End: 10-07-2022 Admission to same day surgery center Ni OLIVARES [facility] Start: 09-15-2022 End: 09-15-2022 ambulatory Alicia Brit Other [employer] Other Start: 09-15-2022 Office outpatient vi sit 25 minutes Alicia Brit [facility] Start: 09-14-2022 ambulatory Facility:1 [id number] Start: 09-13-2022 End: 09-14-2022 ambulatory ALICIA BRIT Facility:H1 Start: 09-06-2022 End: 09-06-2022 Patient encounter procedure Ni OLIVARES [facility] Start: 09-01-2022 End: 09-02-[address] NI OLIVARES Facility:H1 Start: 08-24-2022 End: 08-25-[address] JOSE ALFARO . Facility:H1 Start: 08-22-2022 End: 08-22-[address] JOSE ALFARO . Facility:H1 Start: 08-21-2022 End: 08-22-[address] JOSE ALFARO . Facility:H1 Start: 08-18-2022 End: 08-19-2022 ambulatory ALICIA BRIT Facility:H1 Start: 08-11-2022 ambulatory Facility:[facility] Start: 08-11-2022 Patient encounter status MD Iglesias Work Phone: [facility] Comment on above: Problem List clean-u p per request of Phys. EHR Cmte Start: 08-11-2022 End: 08-15-2022 Encounter for preprocedural cardiovascular examination MD Jose Alfaro Work Phone: [facility] Start: 08-11-2022 End: 08-15-2022 Evaluation and management of inpatient MD Jose Alfaro Work Phone: [facility] Work Phone: Start: 08-11-2022 End: 08-11-2022 ambulatory THADDEUS DAUGHERTY Facility:H1 Start: 08-02-2022 End: 08-02-[address] JOSE ALFARO . Facility:H1 Start: 07-08-2022 End: 07-23-[address] JOSE ALFARO . Facility:H1 Start: 06-01-2022 End: 06-01-2022 ambulatory Alicia Brit Other [employer] Other Start: 06-01-2022 Office outpatient vi sit 25 minutes Alicia Brit [facility] Start: 05-24-2022 End: 05-25-2022 ambulatory ALICIA BRIT Facility:H1 Start: 02-03-2022 End: 02-04-[address] JOSE ALFARO . Facility:H1 Start: 11-24-2021 End: 11-24-2021 ambulatory Alicia Brit Other [place] Other Start: 11-24-2021 Office outpatient vi sit 25 minutes Alicia Brit [facility] Start: 10-26-2021 End: 10-26-2021 Patient encounter procedure Milton BRAUN [facility] [place] Start: 05-26-2021 End: 05-26-2021 ambulatory Alicia Brit Other [facility] Other Start: 05-26-2021 Office outpatient vi sit 25 minutes [facility] Procedures Date Procedure Procedure Detail Performing Clinician Start: 06-16-2023 Ultrasonography of b ilateral kidneys MD Jose Alfaro Work Phone: Start: 12-20-2022 Cystoscopic removal of ureteric stent Ni OLIVARES Start: 12-02-2022 Cystoscopy Ni BULL Start: 11-06-2022 PSA screening ALICIA QAAlc[facility] Comment on above: Performed By: #### T SH, LIPID, T4, FT3, CMP #### [facility] [address] [place] [address] Dr. Alicia Patel Start: 10-07-2022 Extracorporeal shock wave lithotripsy of calculus of kidney Ni OLIVARES Start: 08-21-2022 PSA screening ALICIA CANADA [facility] Comment on above: Performed By: #### P SAD #### [facility] [address] [place] [address] Dr. Alicia Patel Start: 08-13-2022 Cystoscopy MD Jose Alfaro Work Phone: Start: 08-11-2022 Plain chest X-ray MD Iglesias Work Phone: Start: 08-01-2019 Transurethral prostatectomy Milton BRAUN Start: 07-04-2019 Biopsy of prostate Rohan BRAUN Start: 06-27-2019 cystoscopy, bilatera l, ureteroscopy, laser lithotripsy Milton BRAUN ear surgery Milton BRAUN ear surgery Ni OLIVARES Plan of Treatment Date Care Activity Detail Author Start: 08-15-2022 [facility] Start: 08-14-2022 Microbial culture of sputum [facility] Start: 08-14-2022 Aerobic Culture Aerobic Culture [facility] Start: 08-14-2022 Investigation of tra nsfusion reaction Gram Stain [facility] Start: 08-11-2022 Hospital admission [facility] Start: 08-11-2022 Referral to sap bw consultant [facility] Start: 08-11-2022 Referral to laboratory sampler [facility] Start: 08-11-2022 Referral to urologist [facility] CT Chest WO contrast [facility] Patient referral [facility] Work Phone: Renal function 1999 panel - Serum or Plasma [facility] Renal function 1999 panel - Serum or Plasma [facility] Renal function 1999 panel - Serum or Plasma [facility] Immunizations Immunization Date Immunization Notes [facility] Provider [facility]24 influenza virus vaccine, unspecified formulation Nichandu OLIVARES [facility] 05-02-2023 pneumococcal 20-marco nt conjugate vaccine Ni [employer] [facility] 05-02-2023 tetanus toxoid, redu martha diphtheria toxoid, and acellular pertussis vaccine, adsorbed [employer] [facility] 03-29-2022 SARS-CoV-2 (COVID-19 ) [id number] Ni OLIVARES [facility] 05-18-2021 SARS-CoV-2 (COVID-19 ) Ad26 vaccine, recombinant [employer] [facility] 03-30-2021 influenza virus vaccine, unspecified formulation Ni [employer] [facility] 09-01-2020 SARS-CoV-2 (COVID-19 ) Ad26 vaccine, recombinant [employer] [facility] 06-27-2020 SARS-CoV-2 (COVID-19 ) Ad26 vaccine, recombinant Milton [employer] [facility] 04-18-2020 influenza virus vaccine, unspecified formulation Ni [employer] [facility] 02-05-2020 zoster vaccine recombinant Ni [employer] [facility] 12-06-2019 zoster vaccine recombinant Ni [employer] [facility] 04-04-2019 influenza virus vaccine, unspecified formulation Milton BRAUN [facility] 04-05-2017 influenza virus vaccine, unspecified formulation [employer] [facility] 04-05-2017 pneumococcal conjuga te vaccine, 13 valent [employer] [facility] 04-12-2016 influenza, unspecifi ed formulation Ni [employer] [facility] Payers Date Payer Category Payer Self-pay [id number] 2022 Medicare [id number] 1959 Private Health Insurance [id number] 1959 Private Health Insurance [id number] 1942 Unknown [id number] 2.16.840.1.637572.3.579.2.356 1942 Unknown [id number] 2.16.840.1.522329.3.579.2.593 1942 Unknown [id number] 2.16.840.1.478884.3.579.2.593 1942 Unknown [id number] 2.16.840.1.410642.3.579.2.593 1942 Unknown [id number] 2.16.840.1.026368.3.579.2.593 1942 Unknown [id number] 2.16.840.1.965517.3.579.2.593 1942 Unknown [id number] 2.16.840.1.244620.3.579.2.593 1942 Unknown [id number] 2.16.840.1.106935.3.579.2.593 1942 Unknown [id number] 2.16.840.1.932618.3.579.2.593 1942 Unknown [id number] 2.16.840.1.253028.3.579.2.593 1942 Unknown [id number] 2.16.840.1.091737.3.579.2.593 1942 Unknown [id number] 2.16.840.1.955234.3.579.2.593 1942 Unknown [id number] 2.16.840.1.879276.3.579.2.593 1942 Unknown [id number] 2.16.840.1.647665.3.579.2.593 1942 Unknown [id number] 2.16.840.1.772054.3.579.2.593 1942 Unknown [id number] 2.16.840.1.388637.3.579.2.593 1942 Unknown [id number] 2.16.840.1.657381.3.579.2.593 1942 Unknown [id number] 2.16.840.1.522881.3.579.2.593 1942 Unknown [id number] 2.16.840.1.410377.3.579.2.593 1942 Unknown [id number] 2.16.840.1.257684.3.579.2.593 1942 Unknown [id number] 2.16.840.1.493660.3.579.2.1259 1942 Unknown [id number] 2.16.840.1.153912.3.579.2.1259 1942 Unknown [id number] 2.0.1.349336.3.579.2.727 1942 Unknown [id number] 2.16.840.1.091263.3.579.2.727 1942 Unknown [id number] 2.840.1.192828.3.579.2.727 1942 Unknown [id number] 2.840.1.764102.3.579.2.727 Medicare [id number] 40.1.051880.19 Medicare Medicare [id number] Medicare [id number] 2.1 6.840.1.535679.19 Unknown [place] BC/BS [id number] Unknown [id number] 2.16840.1.877008.3.579.2.531 Unknown [id number] 2.840.1.533706.3.579.2.531 Unknown [id number] 2..840.1.061254.3.579.2.531 Unknown [id number] 2.16.840.1.764328.3.579.2.531 Social History Date Type Detail Facility Start: 08-18-2020 End: 12-10-2024 Tobacco smoking status Ex-smoker (finding) [facility] Other Comment on above: quit in 1978 Sex Assigned At Male [facility] Other Start: 1940 Sex Assigned At Male F [facility] Tobacco smoking status Never [facility] Comment on above: quit in 1978 Start: 04-06-2019 End: 12-03-2024 Sex Male (finding) [facility] Sexual Orientation [facility] Medical Equipment Procedure Code Equipment Code Equipment Origin al Text Equipment Identifier Dates Cystoscopy, with ureteral calculus manipulation and stent placement Polymeric ureteral stent ()[id number] FDA Start: 06-15-2019 Cystoscopy, with ureteral calculus manipulation and stent placement Polymeric ureteral stent ()[id number] FDA Start: 06-15-2019 Cystoscopy, with ureteral calculus manipulation and stent placement Polymeric ureteral stent ()[id number] FDA Start: 08-13-2022 Biopsy, prostate, with US guidance Polymeric ureteral stent ()[id number] FDA Start: 07-04-2019 CYSTOSCOPY URETEROSCOPY Ni OLIVARES MD 12/02/22 Unknown Ureter R {[id number] FDA Start: 12-02-2022 Goals Date Patient Goal Desired Activity /State Functional Status Date Assessment Result Facility 06-12-2024 Functional Status N/A [facility] 12-20-2022 Functional Status N/A [facility] 09-06-2022 Functional Status N/A [facility] 08-15-2022 Functional status Patient at Baseline [facility] Work Phone: Mental Status Date Assessment Result Facility 08-15-2022 Cognitive function Cognitive Sta tus Patient at Baseline [facility] Work Phone: Clinical Notes 05-26-2021 to 01-28-2025 Note Date & Type Note Facility 01-28-2025 Note [facility] Subjective Victorino Smyth is a 84 y.o. year old adult patient being seen for follow up. Patient states he has been feeling good, the angina is almost all gone. Patient denies leg swelling, chest pain, palpitations/racing heart Patient complains of dizziness with position changes, fatigue due to back issues, APONTE, SOB Patient Active Problem List Diagnosis Benign prostatic [...] Use Topics Alcohol use: Yes Comment: socially Drug use: Never GLADIS Victorino is seen for follow up. He is an 84 yo man with prior history of CAD and drug eluting stenting of LAD in March of 2013, and then developed acute [place] related to ISR of the LAD stent on 09/28/2016 and underwent emergent Promus JOSE RAMON stent to the LAD at [facility], was on Brilinta but currently on [...] a stent procedure. The stent was removed. after last visit 12/24/2024 I proceeded with cardiac catheterization on 12/27/2024 due to his symptoms of shortness of breath and abnormal stress test showing inferior ischemia. The cardiac catheterization showed 40% mid RCA stenosis. in addition his LVEDP was elevated consistent with diastolic heart failure. I started him on furosemide which was given for 5 days only. In addition I increased his ranolazine to 1000 mg twice daily. He says that since increasing ranolazine he had a couple of twinges of chest pain but nothing significant and no recurrence. He continues to have shortness of breath on exertion NYHA class II-III symptoms. He has minimal leg swelling. Review of Systems HENT: Positive for hearing loss. Cardiovascular: Positive for chest pain and dyspnea on exertion. Leg swelling: minimal. Respiratory: Positive for shortness of breath. Musculoskeletal: Positive for arthritis, back pain and joint pain. Neurological: Positive for loss of balance. All other systems reviewed and are negative. Objective Visit Vitals BP 145/68 (BP Location: Right arm, Patient Position: Sitting) Pulse 62 Ht 1.753 m (5' 9 ) Wt 127 kg (279 lb) SpO2 95% BMI 41.20 kg/m??? Smoking Status Never BSA 2.49 m??? Physical Exam Constitutional: Appearance: She is well-developed. She is obese. She is not ill-appearing. HENT: Head: Normocephalic and [...] tenderness. Musculoskeletal: General: No swelling. Cervical back: (more content not included)... [facility] 12-27-2024 Note Patient: Victorino hendricks Pre-sedation Evaluation: Conscious, moderate sedation for coronary angiography. History of Present Illness: 84 year old male with known CAD (JOSE RAMON to LAD in 2012 c/b ISR with repeat stenting to LAD in 2016). He is presenting [...] nocturia 05/21/2024 Chronic obstructive pulmonary disease (COPD) ([facility]/HCC) 05/21/2024 Diabetes ([facility]/HCC) 05/21/2024 Erectile dysfunction 05/21/2024 H/O: hypothyroidism 05/21/2024 Hematuria 05/21/2024 High prostate specific antigen (PSA) 05/21/2024 Hydronephrosis with ureteral calculus 05/21/2024 Hyperkalemia 05/21/2024 Hyperplastic colon polyp 05/21/2024 Kidney stone 05/21/2024 Left renal atrophy 05/21/2024 Lung nodule 05/21/2024 Metabolic acidosis 05/21/2024 Myocardial infarct (CMS/HCC) 05/21/2024 Occult blood in stools 05/21/2024 Postprandial diarrhea 05/21/2024 Prostate cancer (CMS/HCC) 05/21/2024 Prostatic enlargement 05/21/2024 Rheumatoid arthritis ([facility]) 05/21/2024 Right distal ureteral calculus 05/21/2024 Secondary hyperparathyroidism 05/21/2024 CKD (chronic kidney disease) stage 3, GFR 30-59 ml/min ([facility]) 05/21/2024 Clot retention of urine 05/21/2024 Carpal tunnel syndrome 09/12/2023 Coronary atherosclerosis 05/28/2013 Essential hypertension 05/28/2013 Benign prostatic hyperplasia 05/16/2013 Chest pain 05/16/2013 Hyperlipidemia 05/16/2013 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[facility]) 05/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 Type 2 diabetes mellitus without complication ([facility]) 05/16/2013 Coronary artery disease 12/24/2024 Cardiovascular stress test abnormal 12/24/2024 Shortness of breath 12/24/2024 Allergies: Allergies[2] [employer]/Current Medications: Prescriptions Prior to Admission[3] Current Medications[4] [...] kidney disease Coronary artery disease Diabetes mellitus ([facility]) Hyperlipidemia Hypertension Myocardial infarction ([facility]) [2] Allergies Allergen Reactions Ciprofloxacin Itching Penicillins Other [3] Medications Prior to Admission Medication Sig Dispense Refill Last Dose/Taking albuterol 90 mcg/actuation inhaler Ventolin HFA 90 mcg/actuation aerosol inhaler inhale 2 puffs by mouth and INTO THE LUNGS every 4 hours if needed for shortness of breath 12/26/2024 Morning aspirin 81 mg EC tablet in the [...] by mouth two times daily. Do not cr (more content not included)... [facility] 12-24-2024 Note [facility] Subjective Victorino Smyth is a 84 y.o. year old male patient being seen for follow up abnormal stress test per Dr. Alfaro. Patient's been having intermittent chest pain lately, [...] RAMON stent to the LAD at [facility], was on Brilinta but currently on [...] test that was ordered by Dr. Jose Alfaro due to having chest pain. He reports that recently he has been having chest pain located in the center of the chest with radiation to the left side [...] kg (279 lb) SpO2 93% BMI 41.20 kg/m??? Smoking Status Never BSA 2.49 m??? Physical Exam Constitutional: Appearance: He is [...] is soft. Tenderness: There is no abdominal (more content not included)... [facility] 12-10-2024 Hospital Discharge instructions Patient Education 12/10/2024 [...] treatment? Where to find more information The [place] [employer]: www.cancer.org [place] [employer]: www.auanet.org Contact a health care [...] provider. Document Revised: 12/07/2021 Document Reviewed: 12/07/2021 [employer] Patient Education 2023 [employer]. Follow Up Care 06/12/2024 11:57:45 With:CARLOS OLIVEROS, Ni Garcia, URL Address: [address] [place] [id number]- When: Unknown Comments:6 mos w/ PSA [facility] 12-10-2024 Note Patient Education Oncology Prostate [...] Where to find more information ??? The [place] [employer]: www.cancer.org ??? [place] [employer]: www.auanet.org Contact a health care [...] The prostate gland (more content not included)... [facility] 06-12-2024 Hospital Discharge instructions Patient Education [...] include: ?8 oz (237 mL) of milk, djosmzl-ijkwrigzoxrl-cohkq milk, and calcium-fortifiedfruit juice. Calcium-fortified means that [...] ?Spinach (cooked), rhubarb, beets, sweet potatoes, and Mal[place]ian chard. ?Peanuts. ?Potato chips, turkmen fries, and baked potatoes with skin on. ?Nuts and nut products. ?Chocolate. If you regularly take a diuretic medicine, make sure to eat at least 1 or 2 servings of fruits or vegetables that are high in potassium each day. These include: ?Avocado. ?Banana. ?[place], prune, carrot, or tomato juice. ?Baked potato. [...] magnesium, fish oil, or vitamin B6. Take nbdz-lhc-zqlsirg and prescription medicines only as told by [...] Casseroles. Pizza. Lasagna. Frozen meals. Potato chips. Slovenian fries. The items listed above may not [...] provider. Document Revised: 09/23/2022 Document Reviewed: 09/23/2022 [employer] Patient Education 2023 [employer]. Follow Up Care 06/14/2023 09:52:06 With:CARLOS OLIVEROS, Ni Garcia, URL Address: [address] [place], [place] [id number]- When: Unknown [facility] 06-12-2024 Note Patient Education Nephrology Dietary Guidelines [...] ? 8 oz (237 mL) of milk, bhtdbch-quvqhmjnvcwr-wqvam milk, and calcium-fortifiedfruit juice. Calcium-fortified means that [...] Spinach (cooked), rhubarb, beets, sweet potatoes, and [place]ian chard. ? Peanuts. ? Potato chips, turkmen fries, and baked potatoes with skin on. ? Nuts and nut products. ? Chocolate. ??? If you regularly take a diuretic medicine, make sure to eat at least 1 or 2 servings of fruits or vegetables that are high in potassium each day. These include: ? Avocado. ? Banana. ? [place], prune, carrot, or tomato juice. ? Baked [...] fish oil, or vitamin B6. ??? Take beuo-zle-whnkjxu and prescription medicines only as told by your health (more content not included)... [facility] 05-21-2024 Note [facility] Subjective Victorino Smyth is [...] RAMON stent to the LAD at [facility], was on Brilinta but currently on [...] Allergies Allergies All (more content not included)... [facility] 06-14-2023 Evaluation note Encounter Date Diagnosis Assessment Notes May, Diabetes mellitus with chronic kidney disease (ICD-10 - E11.22) He has nub-tjmxsep-h ependent type 2 diabetes and currently takes [...] and has normal B12 and folate level. [employer] Other [id number] Hospital Discharge instructions Patient Education 06/14/2023 09:44:12 [...] include: ?8 oz (237 mL) of milk, piudkro-cojtnwbsvlqs-aqvnn milk, and calcium- fortifiedfruit juice. Calcium-fortified means [...] ?Spinach (cooked), rhubarb, beets, sweet potatoes, and Maldivian chard. ?Peanuts. ?Potato chips, turkmen fries, and baked potatoes with skin on. ?Nuts and nut products. ?Chocolate. If you regularly take a diuretic medicine, make sure to eat at least 1 or 2 servings of fruits or vegetables that are high in potassium each day. These include: ?Avocado. ?Banana. ?[place], prune, carrot, or tomato juice. ?Baked potato. [...] magnesium, fish oil, or vitamin B6. Take hsgs-cud-alynglt and prescription medicines only as told by [...] Casseroles. Pizza. Lasagna. Frozen meals. Potato chips. Slovenian fries. The items listed above may not [...] provider. Document Revised: 09/23/2022 Document Reviewed: 09/23/2022 [employer] Patient Education 2022 [employer]. Follow Up Care 02/04/2023 14:47:08 With:CARLOS OLIVEROS, Ni Garcia, URL Address: [address] [place] [address]- When: Unknown [facility] [id number] Hospital Discharge instructions Patient Education 12/20/2022 16:27:08 [...] Care 12/07/2022 13:42:13 With:Ni OLIVARES Address: [address] [employer] [address] [employer] [address] [place] [address]- Business (1) When:6 months Comments:Call for followup [...] kidney disease (ICD-10 - E11.22) He has kin-glnofos-ccuq ndent type 2 diabetes and currently takes [...] and has normal B12 and folate level. [employer] Other 04-13-2023 Hospital Discharge instructions Patient Education [...] Follow these instructions at home: Medicines Take aaby-puc-aauzzqq and prescription medicines only as told by [...] 07/02/2008 Document Revised: 09/24/2019 Document Reviewed: 05/04/2017 [employer] Patient Education 2020 [employer]. Follow Up Care 09/06/2022 10:38:13 With:Ni OLIVARES Address: [address] [place], [place] [id number] Business (1) When: Unknown Comments:We were able [...] [facility] Evaluation + Plan noteExtracted from: Title:CSB post op Author:Timothy Pittman MD Date:10/07/22 Plan Transfer/Discharge: Transfer/Discharge Discharge when meets criteria ( To home ). Extracted from: Title:[place]ALEN [place] Author:Timothy Pittman MD Date:10/07/22 Plan [place] Citizen Society of Anesthesiologists (ASA) physical status classification: Class III. Anesthetic Preoperative Plan: Anesthesia General. Future Appointments Appointment Date:10/29/2022 08:45:00 AM Scheduled Provider:Milton BRAUN MD Location:[facility] Appointment Type:URO Office Visit [facility]03-22-2023 Evaluation note* Encounter Date Diagnosis Assessment Notes Treatment Notes Treatment Clinical Notes Aug, Diabetes mellitus wi th chronic kidney disease (ICD-10 - E11.22) He has mfp-hvtrqnk-bchk ndent type 2 diabetes and currently takes [...] Kerendia for now. Aug, Chronic kidney disea , stage III (moderate) (ICD-10 - N18.30) He [...] have advised him to adequately hydrate himself. [employer] Other 03-13-2023 Hospital Discharge instructions Patient Education 09/06/2022 10:27:16 Kidney Stones, Pgcu-dw-Cmmg Kidney Stones Kidney stones are rock-like masses [...] Follow these instructions at home: Medicines Take qviy-lum-vfsldpt and prescription medicines only as told by [...] Document Reviewed: 10/30/2019 Else[employer] Patient Education 2020 [employer] Follow Up Care 08/17/2022 09:18:37 With:CARLOS OLIVEROS, Ni Garcia, URL Address: [address] [address]- When: Unknown [facility] Tom [id number] Discharge summary Author Hiral Interiano [facility] February 19th, 2023 1:50pm Note Date/Time August 15, 2022 1:50pm [facility] [address] [place] [address] Discharge Summary Signed Patient: Victorino Smyth MR#: [id number] : 1940 Acct:[id number] Age/Sex: 82 / M Adm Date: 3 Loc: Room: [address] [place] [address]: Hiral Interiano MD Copies to: [...] history of nephrolithiasis. He initially presented to [facility] ER with complaint of hypoglycemia and was found to have severe renal failure along with metabolic acidosis and hyperkalemia. CT scan at [place] ER showed atrophic left kidney with obstructing stone in the right ureteropelvic junction. Patient was transferred to [facility] for further intervention. On arrival is [...] is also advised to follow-up with his sap bw consultant in 4-week. CT scan at [facility] also showed 0.8 cm nodule on [...] Low-Cholesterol Additional Instructions: Follow-up with your Primary Cooling Room Attendant in 4 weeks. Avoid NSAIDs for pain [...] office on Tuesday to schedule follow-up with Nib Assembler. ) Documented By: Hiral Interiano MD 08/15/22 134 Signed By: <Electronically signed by Hiral Interiano MD> 08/15/22 1350 [facility] Work Phone: 1([phone]) 438-228802-19-2023 Progress note Author Alicia León [facility] August 15, 2022 12:01pm Note Date/Time August 15, 2022 12:01pm [facility] [address] [place] [address] Nephrology Progress Note Signed Patient: Victorino Smyth MR#: [id number] : 1940 Acct:[id number] Age/Sex: 82 / M Adm Date: 3 Loc: Room: [address] [place] [address] Type: ADM IN Attending Dr: Hiral Interiano MD Copies to: ~ Date of Service: 08/15/2022 Subjective Subjective Narrative: This is a 82-year-old male with a medical history of coronary artery disease s/pPCI, nephrolithiasis, CKD, diabetes mellitus, hypertension, dyslipidemia was presented to the emergency room of [facility] for generalized weakness and low urine output. On evaluation emergency room patient was found to have a life- threatening hyperkalemia with serum potassium 7 mmol/L, acute kidney injurywith elevated serum creatinine 17.8 mg/dL, metabolic acidosis serum bicarbonate 13.5 mmol/L. He was given insulin D50 calcium gluconate in the [place] emergency room. He had a CAT scan abdomen pelvis done which showed obstructive kidney stones in the right UPJ and total atrophy of the left kidney. Case was discussed with the on-call urologist Dr. Olivares and recommended patient needs to be n.p.o. for surgical intervention. He was transferred to [facility] for further care. Patient is history of CKD due to the longstanding DM, HTN and recurrent KELSEA with baseline serum creatinine 1.4 to 1.6 mg/dL. He follows in my office for his CKD care. Patient after arrival at the [facility] hada repeat labs done which showed [...] visible mass Skin: No rashes or bruises BACK GRINDER: Awake,Alert, following simple command Musculoskeletal: No joint [...] 10 Mg Tablet) 10 mg PO DAILY [facility] Stop: 08/16/23 08:59 Aspirin (Aspirin 81 Mg Tablet.Dr) 81 mg PO DAILY [facility] Stop: 08/12/23 08:59 Last Admin: 08/15/22 09:45 Dose: 81 mg Atorvastatin Calcium (Atorvastatin 40 Mg Tablet) 40 mg PO HS MA[facility]ICIO Stop: 08/11/23 21:59 Last Admin: 08/14/22 21:08 Dose: 40 mg Dextrose (Dextrose 50% In Water 25 Gm/50 Ml Syringe) 0 gm IV-PUSH PRN PRN PRN Reason: Hypoglycemia Stop: 08/11/23 14:01 Doxycycline Hyclate (Doxycycline Hyclate 100 Mg Tablet) 100 mg PO BID [facility] Stop: 08/18/22 20:59 Last Admin: 08/15/22 09:45 [...] 300 Units/3 Ml Insuln.Pen) 0 units SUBCUT TID.[facility]; Protocol Stop: 08/11/23 16:59 Last Admin: 08/15/22 09:46 Dose: 5 units Insulin Glargine (Insulin Glargine 300 Units/3 Ml Insuln.Pen) 5 units SUBCUT DAILY [facility] Stop: 08/13/23 08:59 Last Admin: 08/15/22 09:47 Dose: 5 units Melatonin (Melatonin 5 Mg Tablet) 5 mg PO QHS PRN PRN Reason: insomnia Stop: 08/14/23 21:59 Last Admin: 08/14/22 21:08 Dose: 5 mg Metoprolol Tartrate (Metoprolol Tartrate 50 Mg Tablet) 50 mg PO BID [facility] Stop: 08/11/23 20:59 Last Admin: [...] signed by Alicia León MD> 08/15/22 1201 [facility] Work Phone: 1([phone]) 514-383502-19-2023 Progress note Author Cade Alvarez [facility] August 15, 2022 11:31am Note Date/Time August 15, 2022 11:31am [facility] [address] [place] [address] Cardiology Progress Note Signed Patient: Victorino Smyth MR#: [id number] : 1940 Acct:[id number] Age/Sex: 82 / M Adm Date: 3 Loc: 4N Room: 9X9777-2 Type: ADM IN Attending Dr: Hiral Interiano [...] patient has cardiology follow-up with his primary sap bw consultant in [place] within 4 weeks of discharge. (2) CAD (coronary artery disease): Code(s): I25.10 - Atherosclerotic heart disease of [place] coronary artery without angina pectoris Status: Acute [...] signed by Cade Alvarez MD> 08/15/22 1131 [facility] Work Phone: [phone] Progress note Author Hiral Interiano [facility] August 14, 2022 2:57pm Note Date/Time August 14, 2022 2:49pm [facility] [address] [place] [address] Hospitalist Progress Note Signed Patient: Victorino Smyth MR#: [id number] : 1940 Acct:[id number] Age/Sex: 82 / M Adm Date: 3 Loc: Room: [address] [place] [address] Type: ADM IN Attending Dr: Hiral Interiano [...] Vial SUBCUT 08/12/23 21:59 Not Given Q8HR [facility] Hydralazine HCl 10 mg 08/11/22 [...] Insuln.Pen SUBCUT 08/11/23 16:59 Not Given TID.WM.HS [facility] Protocol Insulin Glargine 5 units [...] <Electronically signed by Hiral Interiano MD> 08/14/22 6661 [facility] Work Phone: [phone]) 919-109002-18-2023 Progress note Author Alicia León [facility] August 14, 2022 11:55am Note Date/Time August 14, 2022 11:55am [facility] [address] [place] [address] Nephrology Progress Note Signed Patient: Victorino Smyth MR#: [id number] : 1940 Acct:[id number] Age/Sex: 82 / M Adm Date: 3 Loc: 4N Room: [address] [place] [address] Type: ADM IN Attending Dr: Hiral Interiano MD Copies to: ~ Date of Service: 08/14/2022 Subjective Subjective Narrative: This is a 82-year-old male with a medical history of coronary artery disease s/pPCI, nephrolithiasis, CKD, diabetes mellitus, hypertension, dyslipidemia was presented to the emergency room of [facility] for generalized weakness and low urine output. On evaluation emergency room patient was found to have a life- threatening hyperkalemia with serum potassium 7 mmol/L, acute kidney injurywith elevated serum creatinine 17.8 mg/dL, metabolic acidosis serum bicarbonate 13.5 mmol/L. He was given insulin D50 calcium gluconate in the [place] emergency room. He had a CAT scan abdomen pelvis done which showed obstructive kidney stones in the right UPJ and total atrophy of the left kidney. Case was discussed with the on-call urologist Dr. Olivares and recommended patient needs to be n.p.o. for surgical intervention. He was transferred to [facility] for further care. Patient is history of CKD due to the longstanding DM, HTN and recurrent KELSEA with baseline serum creatinine 1.4 to 1.6 mg/dL. He follows in my office for his CKD care. Patient after arrival at the [facility] hada repeat labs done which showed [...] visible mass Skin: No rashes or bruises BACK GRINDER: Awake,Alert, following simple command Musculoskeletal: No joint [...] 81 Mg Tablet.) 81 mg PO DAILY [facility] Stop: 08/12/23 08:59 Last Admin: 08/14/22 08:22 Dose: 81 mg Atorvastatin Calcium (Atorvastatin 40 Mg Tablet) 40 mg PO HS [facility] Stop: 08/11/23 21:59 Last Admin: 08/13/22 21:12 [...] Units/3 Ml Insuln.Pen) 0 units SUBCUT TID.WM.HS [facility]; Protocol Stop: 08/11/23 16:59 Last Admin: 08/14/22 11:50 Dose: Not Given Insulin Glargine (Insulin Glargine 300 Units/3 Ml Insuln.Pen) 5 units SUBCUT DAILY [facility] Stop: 08/13/23 08:59 Last Admin: 08/13/22 08:45 Dose: Not Given Metoprolol Tartrate (Metoprolol Tartrate 50 Mg Tablet) 50 mg PO BID [facility] Stop: 08/11/23 20:59 Last Admin: 08/14/22 08:23 [...] Perez Jr., D.O.08/13/2022 2:25 PM Dictation Location: [place] [address] Any impression(s) listed above is documentation that [...] <Electronically signed by Alicia León MD> 08/14/22 7214 [facility] Work Phone: [phone] 573-616802-18-2023 Progress note Author Cade Alvarez [facility] August 14, 2022 11:21am Note Date/Time August 14, 2022 11:21am [facility] [address] [place] [address] Cardiology Progress Note Signed Patient: Victorino Smyth MR#: [id number] : 1940 Acct:[id number] Age/Sex: 82 / M Adm Date: 3 Loc: 4N Room: [address] [place] [address] Type: ADM IN Attending Dr: Hiral Interiano [...] % (Auto) 79.6 Lymph % (Auto) 7.8 Cass % (Auto) 11.4 Eos % (Auto) 1.0 Baso % (Auto) 0.2 Nucleat RBC Rel Count 0.1 Neut # (Auto) 5.9 Lymph # (Auto) 0.6 L Cass # (Auto) 0.8 Eos # (Auto) 0.1 [...] MPV Neut % (Auto) Lymph % (Auto) Cass % (Auto) Eos % (Auto) Baso % (Auto) Nucleat RBC Rel Count Neut # (Auto) Lymph # (Auto) Cass # (Auto) Eos # (Auto) Baso # [...] sure that he has follow-up in [facility] within 4 weeks of discharge. (2) CAD (coronary artery disease): Assessment/Problem Details: Stable/quiescent. No ischemic complications with yesterday's urological procedure. Code(s): I25.10 - Atherosclerotic heart disease of [place] coronary artery without angina pectoris Status: Acute [...] MD> 08/14/22 1121 [facility] Work Phone: [phone] Progress note Author Hiral Interiano [facility] August 13, 2022 3:09pm Note Date/Time August 13, 2022 3:02pm [facility] [address] [place] [address] Hospitalist Progress Note Signed Patient: Victorino Smyth MR#: [id number] : 1940 Acct:[id number] Age/Sex: 82 / M Adm Date: 3 Loc: 4N Room: [address] [place] [address] Type: ADM IN Attending Dr: Hiral Interiano [...] Insuln.Pen SUBCUT 08/11/23 16:59 Not Given TID.WM.HS [facility] Protocol Insulin Glargine 5 units [...] signed by Hiral Interiano MD> 08/13/22 1509 [facility] Work Phone: [phone] Progress note Author Alicia León [facility] August 13, 2022 11:29am Note Date/Time August 13, 2022 11:25am [facility] [address] [place] [address] Nephrology Progress Note Signed Patient: Victorino Smyth MR#: [id number] : 1940 Acct:[id number] Age/Sex: 82 / M Adm Date: 3 Loc: Room: [address] [place] [address] Type: ADM IN Attending Dr: Hiral Interiano MD Copies to: ~ Date of Service: 08/13/2022 Subjective Subjective Narrative: This is a 82-year-old male with a medical history of coronary artery disease s/pPCI, nephrolithiasis, CKD, diabetes mellitus, hypertension, dyslipidemia was presented to the emergency room of [facility] for generalized weakness and low urine output. On evaluation emergency room patient was found to have a life- threatening hyperkalemia with serum potassium 7 mmol/L, acute kidney injurywith elevated serum creatinine 17.8 mg/dL, metabolic acidosis serum bicarbonate 13.5 mmol/L. He was given insulin D50 calcium gluconate in the [place] emergency room. He had a CAT scan abdomen pelvis done which showed obstructive kidney stones in the right UPJ and total atrophy of the left kidney. Case was discussed with the on-call urologist Dr. Olivares and recommended patient needs to be n.p.o. for surgical intervention. He was transferred to [facility] for further care. Patient is history of CKD due to the longstanding DM, HTN and recurrent KELSEA with baseline serum creatinine 1.4 to 1.6 mg/dL. He follows in my office for his CKD care. Patient after arrival at the [facility] hada repeat labs done which showed [...] visible mass Skin: No rashes or bruises BACK GRINDER: Awake,Alert, following simple command Musculoskeletal: No joint [...] 5,000 Unit/Ml Vial) 5,000 unit SUBCUT Q8HR [facility] Stop: 08/12/23 21:59 Last Admin: 08/13/22 07:08 Dose: 5,000 unit Hydralazine HCl (Hydralazine 20 Mg/Ml Vial) 10 mg IV-PUSH Q4H PRN PRN Reason: Hypertension Stop: 08/11/23 13:40 Last Admin: 08/12/22 23:04 Dose: 10 mg Ceftriaxone Sodium (Rocephin) 1 gm in 50 mls @ 100 mls/hr IV Q24H [facility] Last Admin: 08/12/22 16:24 Dose: 100 mls/hr Azithromycin (Zithromax) 500 mg in 250 mls @ 250 mls/hr IV Q24H [facility] Last Admin: 08/12/22 15:06 Dose: 250 mls/hr Sodium Chloride (0.9% Sodium Chloride 1,000 Ml) 1,000 mls @ 0 mls/hr MISCELLANE.Q0M PRN PRN Reason: Dialysis Stop: 08/11/23 14:19 Last Infusion: 08/12/22 12:38 Dose: Infused Insulin Aspart (Insulin Aspart 300 Units/3 Ml Insuln.Pen) 0 units SUBCUT TID.WM.HS [facility]; Protocol Stop: 08/11/23 16:59 Last Admin: 08/13/22 08:44 Dose: Not Given Insulin Glargine (Insulin Glargine 300 Units/3 Ml Insuln.Pen) 5 units SUBCUT DAILY [facility] Stop: 08/13/23 08:59 Last Admin: 08/13/22 08:45 Dose: Not Given Metoprolol Tartrate (Metoprolol Tartrate 50 Mg Tablet) 50 mg PO BID [facility] Stop: 08/11/23 20:59 Last Admin: [...] <Electronically signed by Alicia León MD> 08/13/22 1120 [facility] Work Phone: [phone] Progress note Author Cade Alvarez [facility] August 13, 2022 9:40am Note Date/Time August 13, 2022 9:35am [facility] [address] [place] [address] Cardiology Progress Note Signed Patient: Victorino Smyth MR#: [id number] : 1940 Acct:[id number] Age/Sex: 82 / M Adm Date: 3 Loc: Room: [address] [place] [address] Type: ADM IN Attending Dr: Hiral Interiano [...] Labs: Laboratory Results - last 24 hr 02/15/23 02/16/23 02/16/23 16:57 13:21 15:39 Corrected WBC Uncorrected WBC Count RBC Hgb Hct MCV MCH MCHC RDW Plt Count MPV Neut % (Auto) Lymph % (Auto) Cass % (Auto) Eos % (Auto) Baso % (Auto) Nucleat RBC Rel Count Neut # (Auto) Lymph # (Auto) Cass # (Auto) Eos # (Auto) Baso # [...] (PCR) IU/mL N/A HCV RNA PCR copper tapper log10 N/A Hepatitis C Interp 08/12/22 08/12/22 08/13/22 19:37 21:06 04:28 Corrected WBC 9.9 Uncorrected WBC Count 9.9 RBC 3.54 L Hgb 11.6 L Hct 34.2 L MCV 96.5 MCH 32.9 MCHC 34.1 RDW 13.7 Plt Count 129 L MPV 8.7 Neut % (Auto) 79.2 Lymph % (Auto) 9.6 Cass % (Auto) 9.8 Eos % (Auto) 0.9 Baso % (Auto) 0.5 Nucleat RBC Rel Count 0.1 Neut # (Auto) 7.8 H Lymph # (Auto) 0.9 L Cass # (Auto) 1.0 H Eos # (Auto) [...] RNA (PCR) IU/mL HCV RNA PCR copper tapper log10 Hepatitis C Interp 08/13/22 08/13/22 04:28 05:25 Corrected WBC Uncorrected WBC Count RBC Hgb Hct MCV MCH MCHC RDW Plt Count MPV Neut % (Auto) Lymph % (Auto) Cass % (Auto) Eos % (Auto) Baso % (Auto) Nucleat RBC Rel Count Neut # (Auto) Lymph # (Auto) Cass # (Auto) Eos # (Auto) Baso # [...] RNA (PCR) IU/mL HCV RNA PCR copper tapper log10 Hepatitis C Interp A&P - Cardiology [...] Code(s): I25.10 - Atherosclerotic heart disease of [place] coronary artery without angina pectoris Status: Acute Plan: Preoperative recommendations as above. Plan Thank you very much for this kind consultation and for allowing us to participate in the care of this very pleasant patient Time spent with patient Time Spent With Patient (min): 30 Documented By: Cade Alvarez MD 08/13/22 0934 Signed By: <Electronically signed by Cade Alvarez MD> 08/13/22 4200 [facility] Work Phone: [phone] Progress note Author Hiral Interiano [facility] August 12, 2022 4:04pm Note Date/Time August 12, 2022 4:04pm [facility] [address] [place], [place] [id number] Hospitalist Progress Note Signed Patient: Victorino Smyth MR#: [id number] : 1940 Acct:[id number] Age/Sex: 82 / M Adm Date: 3 Loc: Room: [address] [place] [address] Type: ADM IN Attending Dr: Hiral Interiano [...] kidney disease: Plan: Patient was transferred from [place] ER when found to have acute kidney [...] <Electronically signed by Hiral Interiano MD> 08/12/22 1605 [facility] Work Phone: [phone] Progress note Author Alicia León [facility] August 12, 2022 11:29am Note Date/Time August 12, 2022 11:24am [facility] [address] [place] [address] Nephrology Progress Note Signed Patient: Victorino Smyth MR#: [id number] : 1940 Acct:[id number] Age/Sex: 82 / M Adm Date: 3 Loc: Room: [address] [place] [address] Type: ADM IN Attending Dr: Hiral Interiano MD Copies to: ~ Date of Service: 08/12/2022 Subjective Subjective Narrative: This is a 82-year-old male with a medical history of coronary artery disease s/pPCI, nephrolithiasis, CKD, diabetes mellitus, hypertension, dyslipidemia was presented to the emergency room of [facility] for generalized weakness and low urine output. On evaluation emergency room patient was found to have a life- threatening hyperkalemia with serum potassium 7 mmol/L, acute kidney injurywith elevated serum creatinine 17.8 mg/dL, metabolic acidosis serum bicarbonate 13.5 mmol/L. He was given insulin D50 calcium gluconate in the [place] emergency room. He had a CAT scan abdomen pelvis done which showed obstructive kidney stones in the right UPJ and total atrophy of the left kidney. Case was discussed with the on-call urologist Dr. Olivares and recommended patient needs to be n.p.o. for surgical intervention. He was transferred to [facility] for further care. Patient is history of CKD due to the longstanding DM, HTN and recurrent KELSEA with baseline serum creatinine 1.4 to 1.6 mg/dL. He follows in my office for his CKD care. Patient after arrival at the [facility] hada repeat labs done which showed [...] visible mass Skin: No rashes or bruises BACK GRINDER: Awake,Alert, following simple command Musculoskeletal: No joint [...] (Atorvastatin 40 Mg Tablet) 40 mg PO [facility] Stop: 08/11/23 21:59 Last Admin: 08/11/22 21:08 [...] 50 mls @ 100 mls/hr IV Q24H [facility] Last Infusion: 08/11/22 21:49 Dose: Infused Azithromycin (Zithromax) 500 mg in 250 mls @ 250 mls/hr IV Q24H [facility] Last Admin: 08/11/22 16:00 Dose: 250 mls/hr Sodium Chloride (0.9% Sodium Chloride 1,000 Ml) 1,000 mls @ 0 mls/hr MISCELLANE.Q0M PRN PRN Reason: Dialysis Stop: 08/11/23 14:19 Last Admin: 08/12/22 10:24 Dose: 999 mls/hr Insulin Aspart (Insulin Aspart 300 Units/3 Ml Insuln.Pen) 0 units SUBCUT TID.[facility]; Protocol Stop: 08/11/23 16:59 Last Admin: 08/12/22 08:07 Dose: Not Given Metoprolol Tartrate (Metoprolol Tartrate 50 Mg Tablet) 50 mg PO BID [facility] Stop: 08/11/23 20:59 Last Admin: [...] M.D.08/11/2022 4:10 PM Dictation Location: [place] [address] Any impression(s) listed above is documentation that [...] output * Documented By: Alicia León MD 08/12/22 112 Signed By: <Electronically signed by Alicia León MD> 08/12/22 [facility] Work Phone: [phone] 463-891802-16-2023 Progress note Author Cade Alvarez [facility] August 12, 2022 10:04am Note Date/Time August 12, 2022 10:05am [facility] [address] [place] [address] Cardiology Progress Note Signed Patient: Victorino Smyth MR#: [id number] : 1940 Acct:[id number] Age/Sex: 82 / M Adm Date: 3 Loc: Room: 2F8806-0 Type: ADM IN Attending Dr: Hiral Interiano [...] % (Auto) N/A Lymph % (Auto) N/A Cass % (Auto) N/A Eos % (Auto) N/A Baso % (Auto) N/A Nucleat RBC Rel Count N/A Neut # (Auto) N/A Lymph # (Auto) N/A Cass # (Auto) N/A Eos # (Auto) N/A [...] MPV Neut % (Auto) Lymph % (Auto) Cass % (Auto) Eos % (Auto) Baso % (Auto) Nucleat RBC Rel Count Neut # (Auto) Lymph # (Auto) Cass # (Auto) Eos # (Auto) Baso # [...] MPV Neut % (Auto) Lymph % (Auto) Cass % (Auto) Eos % (Auto) Baso % (Auto) Nucleat RBC Rel Count Neut # (Auto) Lymph # (Auto) Cass # (Auto) Eos # (Auto) Baso # [...] % (Auto) 88.0 Lymph % (Auto) 4.4 Cass % (Auto) 7.4 Eos % (Auto) 0.0 Baso % (Auto) 0.2 Nucleat RBC Rel Count 0.0 Neut # (Auto) 11.8 H Lymph # (Auto) 0.6 L Cass # (Auto) 1.0 H Eos # (Auto) [...] MPV Neut % (Auto) Lymph % (Auto) Cass % (Auto) Eos % (Auto) Baso % (Auto) Nucleat RBC Rel Count Neut # (Auto) Lymph # (Auto) Cass # (Auto) Eos # (Auto) Baso # [...] Code(s): I25.10 - Atherosclerotic heart disease of [place] coronary artery without angina pectoris Status: Acute Plan: Preoperative recommendations as above. Plan Thank you very much for this kind consultation and for allowing us to participate in the care of this very pleasant patient Time spent with patient Time Spent With Patient (min): 30 Documented By: Cade Alvarez MD 08/12/22 0959 Signed By: <Electronically signed by Cade Alvarez MD> 08/12/22 6517 [facility] Work Phone: [phone] Consult note Author Alicia León [facility] August 11, 2022 5:46pm Note Date/Time August 11, 2022 4:00pm [facility] [address] [place] [address] Nephrology Consult Note Signed with Nancy Patient: Victorino Smyth MR#: [id number] : 1940 Acct:[id number] Age/Sex: 82 / M Adm Date: 3 Loc: Room: 3W8804-4 Type: ADM IN Attending Dr: Hiral Interiano [...] was presented to the emergency room of [facility] for generalized weakness and low urine output. On evaluation emergency room patient was found to have a life- threatening hyperkalemia with serum potassium 7 mmol/L, acute kidney injurywith elevated serum creatinine 17.8 mg/dL, metabolic acidosis serum bicarbonate 13.5 mmol/L. He was given insulin D50 calcium gluconate in the [place] emergency room. He had a CAT scan abdomen pelvis done which showed obstructive kidney stones in the right UPJ and total atrophy of the left kidney. Case was discussed with the on-call urologist Dr. Olivares and recommended patient needs to be n.p.o. for surgical intervention. He was transferred to [facility] for further care. Patient is history of CKD due to the longstanding DM, HTN and recurrent KELSEA with baseline serum creatinine 1.4 to 1.6 mg/dL. He follows in my office for his CKD care. Patient [facility] at the [facility] had[facility] repeat labs done which showed [...] 40 Mg Tablet) 40 mg PO HS [facility] Stop: 08/11/23 21:59 Dextrose (Dextrose [...] Units/3 Ml Insuln.Pen) 0 units SUBCUT TID.WM.HS [facility]; Protocol Stop: 08/11/23 16:59 Metoprolol Tartrate (Metoprolol Tartrate 50 Mg Tablet) 50 mg PO BID [facility] Stop: 08/11/23 20:59 Nitroglycerin (Nitroglycerin [...] visible mass Skin: No rashes or bruises BACK GRINDER: Awake,Alert, following simple command Musculoskeletal: No joint [...] Patient consented for dialysis. I consulted the glass artist for hemodialysis catheter placement which was placed [...] team. Documented By: Alicia León MD 08/11/22 4192 Signed By: <Electronically signed by Alicia León MD> 08/11/22 9242 [facility] Work Phone: 1(712) 412-973102-15-2023 Consult note Author Cade Alvarez [facility] August 11, 2022 4:47pm Note Date/Time August 11, 2022 4:36pm [facility] [address] [place] [address] Cardiology Consult Note Signed Patient: Victorino Smyth MR#: [id number] : 1940 Acct:[id number] Age/Sex: 82 / M Adm Date: 3 Loc: Room: [address] [place] [address] Type: ADM IN Attending Dr: Hiral Interiano MD Copies to: MD Hiral James MD Stephen M Tann, MD~ Cardiology HPI History of Present Illness Consult Date: 08/11/22 Reason for Consult: Preoperative cardiovascular evaluation given history of LAD PCI in 2012 and 2017 HPI: Mr. Smyth is a 82 year old male with known coronary heart disease history of initial PCI to the proximal LAD in 2012 with repeat PCI in the setting of acute coronary syndrome in 2017. Patient initially presented to [facility] emergency department complaining of shortness of breath [...] # (Auto) N/A Lymph # (Auto) N/A Cass # (Auto) N/A Eos # (Auto) N/A [...] Code(s): I25.10 - Atherosclerotic heart disease of [place] coronary artery without angina pectoris Plan Thank you very much for this kind consultation and for allowing us to participate in the care of this very pleasant patient Documented By: Cade Alvarez MD 08/11/22 4710 Signed By: <Electronically signed by Cade Alvarez MD> 08/11/22 4907 [facility] Work Phone: 1(231) 700-595102-15-2023 Consult note Author Ni Olivares [facility] August 11, 2022 3:24pm Note Date/Time August 11, 2022 3:24pm [facility] [address] [place] [address] Urology Consult Note Signed Patient: Victorino Smyth MR#: [id number] : 1940 Acct:[id number] Age/Sex: 82 / M Adm Date: 3 Loc: Room: [address] [place] [address] Type: ADM IN Attending Dr: Hiral Interiano MD Copies to: MD Ni James MD Mazhar Rahman, MD~ History of Present Illness Consult Details Consult Date: 08/11/2022 Requesting Provider: Hiral Interiano MD HPI: Mr. Smyth is an 82-year-old man transferred from the [facility] earliertoday. The patient presented [...] the emergency room prior to transfer to [facility]. He finished breakfast at about 11 [...] P documented by Dr. Interiano earlier today [facility] Vaccinated for COVID-19?: Yes Medical History (Updated [...] % (Auto) N/A, Lymph % (Auto) N/A, Cass % (Auto) N/A, Eos % (Auto) N/A, Baso % (Auto) N/A, Nucleat RBC Rel Count N/A, Neut # (Auto) N/A, Lymph # (Auto) N/A, Cass # (Auto) N/A, Eos # (Auto) N/A, [...] actually worse than that noted at the [facility] at a current level [...] indicated. Documented By: Ni Olivares MD 08/11/22 947 Signed By: <Electronically signed by MD Ni Olivares> 08/11/22 3745 [facility] Work Phone: 1(441) 373-505402-15-2023 History and physical note Author Hiral Interiano [facility] August 11, 2022 2:02pm Note Date/Time August 11, 2022 2:02pm [facility] [address] [place] [address] Hospitalist H&P Signed Patient: Victorino Smyth MR#: [id number] : 1940 Acct:[id number] Age/Sex: 82 / M Adm Date: 3 Loc: Room: [address] [place] [address] Type: ADM IN Attending Dr: Hiral Interiano [...] of nephrolithiasis. Patient has been transferred from [facility] ER for acute kidney [...] repeated labs available in the record from [facility]. Chest x-ray read as mild [...] negative unless noted below or in HPI [facility] Medical History (Updated 08/11/22 @ 13:59 by [...] type 2. He has been transferred from [facility] ER for obstructive uropathy with worsening renal [...] start him on sliding scale coverage. Continue beta-charlotet and aspirin. DVT prophylax with SCDs. Time [...] Hiral Interiano MD> 08/11/22 1402 [facility] Work Phone: 1(406) 263-145102-15-2023 [facility]* Encounter Date Diagnosis Assessment Notes Treatment Notes Treatment Clinical Notes May, Diabetes mellitus wi th chronic kidney disease (ICD-10 - E11.22) He has aux-bjjopvg-wodh ndent type 2 diabetes and currently takes [...] have advised him to adequately hydrate himself. [employer] Other 08-11-2022 NotePROCEDURE: XR KNEE LT 4V or > COMPARISON: None. HISTORY: Pain of left knee joint FINDINGS: BONES:No acute fracture or dislocation. Minimal degenerative changes. SOFT TISSUES:Negative. No visible soft tissue swelling. EFFUSION:None visible. OTHER: Vascular calcification IMPRESSION: No acute abnormality Electronically authenticated by: TYLER MONSIVAIS Date: 2022-02-04 07:23[facility]05-31-2022 Evaluation note* Encounter Date Diagnosis Assessment Notes Treatment Notes Treatment Clinical Notes October, Diabetes mellitus wi th chronic kidney disease (ICD-10 - E11.22) He has ycz-udbelbk-raqpe dent type 2 diabetes and currently takes [...] have advised him to adequately hydrate himself. [facility] Other 05-02-2022 Hospital Discharge instructions Follow Up Care 10/26/2021 10:06:54 With:KADE OLIVEROS, Milton Brewer, URL Address: [address] [place] [address] [place] [address]- When: Unknown [facility] 05-02-2022 Hospital Discharge instructions Patient [...] 06/13/2006 Document Revised: 03/02/2019 Document Reviewed: 05/13/2017 [employer] Patient Education 2020 [employer]. 10/26/2021 09:44:44 Urinary Frequency, Adult Urinary Frequency, [...] to keep your urine pale yellow. ?Take rvem-hcb-eiwytnv or prescription medicines. ?Eat foods that are high in fiber, such as beans, whole grains, and fresh fruits and vegetables. ?Limit foods that are high in fat and processed sugars, such as fried or sweet foods. General instructions Take pcon-rsu-cxqnnxx and prescription medicines only as told by [...] the muscles that help control urination. Take dgat-tnj-lljvmxe and prescription medicines only as told by your health care provider. Contact a health care provider if your symptoms do not improve or get worse. This information is not intended to replace advice given to you by your health care provider. Make sure you discuss any questions you have with your health care provider. Document Released: 04/09/2010 Document Revised: 12/21/2018 Document Reviewed: 12/21/2018 [employer] Patient Education 2020 [employer]. 10/26/2021 09:44:41 Kidney Stones, Jwkv-hn-Imqt Kidney Stones Kidney stones are rock-like masses [...] Follow these instructions at home: Medicines Take ilrr-gdo-dqzebsr and prescription medicines only as told by [...] 11/29/2008 Document Revised: 10/30/2019 Document Reviewed: 10/30/2019 [employer] Patient Education 2020 [employer]. Follow Up Care 02/23/2021 14:09:11 With:KADE OLIVEROS, BHUPINDER Rose Address: [facility] [address] , [place] [address]- When:10/26/2022 [facility] 11-30-2021 Evaluation note* Encounter Date Diagnosis Assessment Notes Treatment Notes Treatment Clinical Notes Apr, Diabetes mellitus wi th chronic kidney disease (ICD-10 - E11.22) He has vlx-xvbmxmn-uktwg dent type 2 diabetes and currently takes [...] have advised him to adequately hydrate himself. [facility] Other Evaluation + Plan note Future Appointments Appointment Date:10/29/2022 08:45:00 AM Scheduled Provider:Milton BRAUN MD Location:[facility] Appointment Type:URO Office Visit [facility] evaluation + Plan note Future Appointments Appointment Date:09/14/2022 07:30:00 AM Scheduled Provider: Location:[facility] Appointment Type:Surgical PAT FT Appointment Date:10/07/2022 12:00:00 PM Scheduled Provider: Location:[facility] Appointment Type:Surgery FT Appointment Date:10/29/2022 08:45:00 AM Scheduled Provider:Milton BRAUN MD Location:[facility] Appointment Type:URO Office Visit [facility] evaluation + Plan note Future Appointments Appointment Date:11/18/2022 10:30:00 AM Scheduled Provider: Location:[facility] Appointment Type:Surgical PAT FT Appointment Date:12/02/2022 11:45:00 AM Scheduled Provider: Location:[facility] Appointment Type:Surgery FT [facility] evaluation + Plan note Future Appointments Appointment Date:06/12/2024 11:00:00 AM Scheduled Provider:Ni OLIVARES MD Location:[facility] Appointment Type:URO Office Visit Future Scheduled Tests Laboratory* Total Protein 24 Hour Urine 02/14/23 [facility] evaluation + Plan note Future Appointments Appointment Date:12/10/2024 11:15:00 AM Scheduled Provider:Ni OLIVARES MD Location:[facility] Appointment Type:URO Office Visit Diagnostic Tests Pending * PSA Total 06/12/24 [facility] evaluation + Plan note Future Appointments Appointment Date:06/11/2025 10:00:00 AM Scheduled Provider:Ni OLIVARES MD Location:[facility] Appointment Type:URO Office Visit Diagnostic Tests Pending * PSA Free & Total 12/10/24 [facility] evaluation + Plan note Future Appointments Appointment Date:06/11/2025 10:00:00 AM Scheduled Provider:Ni OLIVARES MD Location:[facility] Appointment Type:URO Office Visit [facility] evaluation note* Diagnosis Onset Date Resolution Status Acute kidney injury superimp osed on chronic kidney disease acute Acute kidney insufficiency a cute CAD (coronary artery disease) acute CKD (chronic kidney disease) stage 3, GFR 30-59 ml/min acute Elevated PSA acute Hydronephrosis with ureteral calculus acute Hyperkalemia acute [id number] acute Left renal atrophy acute Metabolic acidosis acute Obstructive nephropathy acut e Preoperative cardiovascular examination acute Right ureteral stone acute 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 Diabetes chronic [facility] Work Phone: Evaluation noteNo assessment information available [facility] Work Phone: evaluation note* Diagnosis Onset Date Resolution Status Secondary hyperparathyroidism acute CKD (chronic kidney disease) stage 3, GFR 30-59 ml/min chronic [id number] chronic Left renal atrophy chronic Metabolic acidosis chronic 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 [facility] Work Phone: evaluation note* Diagnosis Onset Date Resolution Status Admit Date Hyperuricemia acute December 03, 025 2:13pm Nephrolithiasis acute December 03, 2024 [...] kidney disease chronic December 03, 2024 2:13pm [facility] Work Phone: Hisrcmd general Narrative - Reported* Type Description Date Medical History DIABETES MELLITUS Medical History CORONARY ARTERY DISEASE Medical History MORBID OSESITY Surgical History HERNEA LOWER RIGHT ABDOMINAL Surgical History HEART ATTACK WITH STENT PLACEME NT IN THE LAD Surgical History KIDNEY STENTS X 2 Surgical History PROSTRATE BIO PAD Surgical History KIDNEY STENTS X2 Surgical History KIDNEY STONE REMOVAL Hospitalization History SEE ABOVE [facility] Other Hiskyxm general Narrative - Reported* Type Description Date [...] KIDNEY STONE REMOVAL Hospitalization History SEE ABOVE [facility] Other Hisiaku general Narrative - Reported* Type Description Date [...] KIDNEY STONE REMOVAL Hospitalization History SEE ABOVE [facility] Other Hisbbzg general Narrative - Reported* Type Description Date [...] History KELSEA, HYPERKALEMIA, METAB OLIC ACIDOSIS 08/11/2022 [facility] Other Hospital course Narrative No data available for this section [facility] Hospital Discharge instructions Additional Instructions Follow-up with your Primary Cooling Room Attendant in 4 weeks. Avoid NSAIDs for pain control. Call [facility] Scheduling on Tuesday at [phone] to arrange a follow up CT scan regarding lung nodule in 4 weeks. Maintain occlussive dressing to HD catheter removal site for 48 hours - return to the Emergency Room for oozing or drainage from catheter exit site, noticeable swelling or itching around neck, shortness of breath, [facility] Work Phone: Hospital Discharge instructions No data available for this section [facility] Progress note No data available for this section [facility] [place] Chief Complaint and Reason for Visit Chief Complaint ACUTE RENAL FAILURE Reason for Visit Acute kidney injury superimposed on chronic kidney disease Acute kidney insufficiency CAD (coronary artery disease) CKD (chronic kidney disease) stage 3, GFR 30-59 ml/min Elevated PSA Hydronephrosis with ureteral calculus Hyperkalemia [id number] Left renal atrophy Metabolic acidosis Obstructive nephropathy Preoperative cardiovascular examination Right ureteral stone Type 2 diabetes mellitus with diabetic chronic kidney disease Diabetes Chief Complaint n20.0 Chief Complaint n20.0 N40.1 Chief Complaint n20.0 N40.1 N20.0 Chief Complaint Unknown Chief Complaint Unknown RENAL 6 month f/u Reason for Visit Secondary hyperparat hyroidism CKD (chronic kidney disease) stage 3, GFR 30-59 ml/min [id number] Left renal atrophy Metabolic acidosis Type 2 [...] content) Team Status: Active Member Role Status Dates [...] Active Skinny Kiser MD Other Provider Active CHANCE RojasP- Other Provider Active Aaliyah Mitchell MD Other [...] section and content) DATE CREATED AUTHOR 10/03/2022 [facility] DATE CREATED AUTHOR AUTHOR'S ORGANIZ ATION 12/07/2022 [facility] DATE CREATED AUTHOR AUTHOR'S ORGANIZ ATION 10/27/2023 [facility] EPIC DATE CREATED AUTHOR AUTHOR'S ORGANIZ ATION 12/21/2023 [facility] DATE CREATED AUTHOR AUTHOR'S ORGANIZ ATION 12/12/2024 [facility] DATE CREATED AUTHOR AUTHOR'S ORGANIZ ATION 12/17/2024 [facility] DATE CREATED AUTHOR AUTHOR'S ORGANIZ ATION 01/30/2025 [facility] Goals (unrecognized section and content) Goals [...] BE BASED ON THE PRIMARY CLINICAL RECORDS. [facility] [employer] provides no warranty or guarantee of the accuracy or completeness of information in this document.
[2025-02-27 11:24] LABS: Anion Gap 15.6; Blood Urea Nitrogen 38.0 mg/dL (7.0-18.0); Calcium 9.1 mg/dL (8.5-10.1); Carbon Dioxide 23.5 mmol/L (21.0-32.0); Chloride 106 mmol/L (98-107); Estimated GFR (African America 34 (>=60 mL/min/1.73m^2); Estimated GFR (Non-African Ame 28 (>=60 mL/min/1.73m^2); Glucose 94 mg/dL (74-106); Potassium 5.1 mmol/L (3.5-5.1); Sodium 140 mmol/L (136-145)
== END 2025-02-27 09:16 | disposition home or self-care (01) ==
LOC: LAB 09:19
PROVIDERS: PCP Family Medicine; Visit Provider Internal Medicine Interventional Cardiology
DX: I25.118 Atherosclerotic heart disease of native coronary artery with other forms of angina pectoris (principal); N18.32 Chronic kidney disease, stage 3b
CPT/HCPCS: 36415; 80048

== ENCOUNTER 2025-05-30 07:26 | Outpatient (OUT) | payer MEDICARE, SELFPAY ==
--- OUTSIDE RECORDS SUMMARY | 2024-04-19 05:00 | XMS_ITS ---
Author Organization [facility] in [place] Address [address] [place] [address] Care Team Providers Care Mail Handler Assistant Name Role Phone Jose Danielson Primary Care Provider Jay Doty Unavailable [phone] REASON FOR VISIT 1y COPD Encounters Encounter Location Date Provider Diagnosis Pulmonary Medicine [address] [address] 04/19/2024 Jay Doty Plan Of Treatment No Information Progress Notes * Victorino SMYTHDOB:[birth year] (84 yo M)Acc No.[id number]:04/19/2024 UNLOCKED PROGRESS NOTE Follow Up Patient: Victorino GUEVARA :?Jay Doty, DODOB:1940???Age:83 Y ???Sex:MaleDate:04/19/2024hone:[phone]:[address] [place] [id number]:Jose Danielson Subjective: * Chief Complaints: * 1 . 1y COPD. * Medical History: Objective: * Vitals: Assessment: Plan: * Treatment: * * Electronic signature of Jay Doty DO on 05/30/2025 at 07:32 AM ESTSign off status: PendingVisit Status:?OFF CANC (OFFICE CANCEL) * Provider: Riki Doty DO Date: Generated for Printing/Faxing/eTransmitting on:?05/30/2025 07:32 AM EST
--- OUTSIDE RECORDS SUMMARY | 2025-04-23 04:00 | XMS_ITS ---
Author Organization [facility] [place] Address [address] [place] [address] Care Team Providers Care Qa Intern Name Role Phone Jose Danielson Primary Care Provider Jay Doty Unavailable [phone] REASON FOR VISIT 1y COPD Encounters Encounter Location Date Provider Diagnosis Pulmonary Medicine [address] [address] 04/23/2025 Jay Doty Plan Of Treatment No Information Progress Notes * Victorino SMYTHDOB:[birth year] (84 yo M)Acc No.[id number]:04/23/2025 UNLOCKED PROGRESS NOTE Follow Up Patient: Victorino GUEVARA :?Jay Doty, DODOB:1940???Age:84 Y ???Sex:MaleDate:04/23/2025Phone:[phone]:[id number] [place] [id number]:Jose Danielson Subjective: * Chief Complaints: * 1 . 1y COPD. * Medical History: Objective: * Vitals: Assessment: Plan: * Treatment: * * Electronic signature of Jay Doty DO on 05/30/2025 at 07:32 AM ESTSign off status: PendingVisit Status:?OFF CANC (OFFICE CANCEL) * Provider: Riki Doty DO Date: 1 Generated for Printing/Faxing/eTransmitting on:?05/30/2025 07:32 AM EST
--- OUTSIDE RECORDS SUMMARY | 2025-05-30 07:31 | XMS_ITS | CCD ---
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 Name Role Phone Jose Alfaro Primary Care Physician Alicia León Unavailable MD Jose Alfaro Primary Care Provider MD Hiral Interiano Admit Provider MD Hiral Interiano Attending Provider ALISHA Mckinley Other Provider Unavailable DO Lizzy Lin Other Provider MD Niharika Elias Other Provider MD Joel Larkin Other Provider MD Isidro Dow Other Provider MD Peter Manuel Other Provider ILA Borges Other Provider MD Peyton Barragan Other Provider MD Myesha Solo Naeb Other Provider MD Skinny Kiser Other Provider Belkis [facility] Jen Desir Other Provider MD Aaliyah Mitchell Other Provider MD Alicia León Other Provider MD Milton Braun Other Provider MD Ni Olivares Other Provider [phone] MD Yogesh Omalley Other Provider MD [...] HOY ., DR FELIZ Primary Care Unavailable IRWINJACOBA Admitting Unavailable HOY ., DR FELIZ Attending Unavailable HOY ., DR FELIZ Primary Care Unavailable HOY ., DR FELIZ Consulting Unavailable HOY ., DR FELIZ Admitting Unavailable MORLEY, DR TYLER Coello Consulting Unavailable BERNA, IRIS [...] Unavailable MD Jose Alfaro Primary Care Provider [phone] MD Ni Olivares Attending Provider MD Jose Alfaro Primary Care Provider [phone] NON STAFF Attending Provider Unavailable JENNIFER DRISCOLL [...] Attending Unavailable COOK, Ni P Attending Unavailable CARLOS, Ni P Admitting Unavailable JENNIFER HUYNH Admitting Unavailable JENNIFER HUYNH Attending Unavailable JENNIFER HUYNH Attending Unavailable JENNIFER HUYNH Attending Unavailable JENNIFER HUYNH Attending Unavailable JENNIFER HUYNH Referring Unavailable Jose Alfaro MD Primary Care Provider [phone] Allergies Allergy ClassificationReported Allergen(s)Allergy TypeDate of OnsetReaction(s) Facility (20 sources)Ciprofloxacin; Translations: [ciprofloxacin]Drug [id number] Eruption of skin (disorder), Itching, [facility] (16 sources)Penicillin; Translations: [penicillin]Drug AllergyEruption of skin (disorder)[facility] Other (6 sources)CiprofloxacinDrug AllergyUnknowProvidence St. [facility] Other (12 sources)Penicillins; Translations: [Penicillins]Allergy to substance 29-23-4558Qjqpf, Rash, Unknown, OtherH[facility] (1 source)CiprofloxacinDrug Yeblvdk39-88-6005CgpMer[facility] (3 sources)levothyroxine; Translations: [levothyroxine]Drug AllergySwelling of oral cavity structure (finding)[facility] [place] (6 sources)liothyronine; Translations: [liothyronine]Drug AllergySwelling of oral cavity structure (finding)[facility] [place] (1 source)CiprofloxacinDrug Khsyyza48-30-8422PtqlryrjiHocking Valley [facility] (1 source)No Known Medication Allergies; Translations: [No Known Medication Allergies]Propensity to adverse reactions (disorder)[facility] Medications Current Medications MedicationDrug Class(es)DatesSig (Normalized)Sig (Original)acetaminophen 325 mg / HYDROcodone bitartrate 5 mg oral tablet (1 source)Opioid AgonistStart: 10-07-2022 End: 72-12-1669swooqouzzaewd-hydrocodone 325 mg-5 mg oral tablet 1 tab(s), Oral, q4hr Pain for 2 day(s), 7 tab(s),Refill(s) 0, [id number], 175, cm, 09/15/22 5:20:00 EDT, Height/Length Dosing, 114, kg, 09/15/22 5:20:00 EDT, Weight Dosing Start Date: 10/07/22 Stop Date: 10/09/22 Status: [id number] 200 actuat albuterol 0.09 mg/actuat metered dose inhaler (19 sources)beta2-Adrenergic AgonistStart: 12-20-2023 End: 45-59-6643aqkx 1 puff(s) by inhalation every four hours as neededAlbuterol Sulfate (Ventolin Hfa) 90 mcg/actuation HFA aerosol inhaler Active 2 PUFF INHALATION Every 4 hours as needed June 05, 2024 4:35pmStart: 02-23-2021 take 2 puff(s) by inhalation every four hoursVentolin Diskus 2 puff(s), Inhalation, q4hr Shortness of breath or wheezing, Refill(s) 0, COPD Start Date: 02/23/21 Status: Ordered Repeat number: 1Start: 94-70-2359lntf 2 puff(s) by inhalation every four hoursVentolin Diskus 2 puff(s), Inhalation, q4hr Shortness of breath or wheezing, Refill(s) 0, COPD Start Date: 02/23/21 Status: Ordered Start: 98-54-9643Ydlikeym Diskus See Instructions, Refill(s) 0, Shortness of breath or wheezing Start Date: 02/23/21 Status: OrderedStart: 82-29-1916Mgvsrfam Diskus Refill(s) 0 Start Date: 02/23/21 Status: Orderedtake 2 puff(s) by inhalation every four hours for wheezingalbuterol HFA 90 mcg/act inhaler Inhale 2 puffs every 4 (four) hours if needed for wheezing Activetake 1 puff(s) by inhalation every four hours as neededVentolin HFA 108 (90 Base) MCG/ACT 1 puff as needed Inhalation every 4 hrs Activeaspirin 81 mg oral tablet (20 sources)Platelet Aggregation Inhibitor, Nonsteroidal Anti-inflammatory Drug Start: 39-85-2775psqh 81 mg by mouth once dailyaspirin 81 mg, Oral, Daily, Prophylaxis Start Date: 11/18/22 Status: Ordered Repeat number: 1take 1 tablet by mouth once dailyaspirin 81 MG EC tablet Take 1 tablet by mouth Daily Activetake 1 tablet by mouth once dailyAspirin 81 81 MG 1 tablet Orally Once a day ActiveB Complex capsule (1 source)B Complex capsule 1 (one) time each day at the same time Active cholecalciferol 0.125 mg oral capsule (17 sources)Vitamin DStart: 77-27-2571fnbc 1 capsule by mouth once daily Cholecalciferol (Vitamin D3) 125 mcg (5,000 unit) capsule Active 5000 UNIT PO Daily December 192:00amStart: 06-15-2019 End: 93-76-8209wbdq 1 tablet by mouth once dailyCholecalciferol (Vitamin D3) 5,000 unit Tablet,Disintegrating Discontinued 5000 UNIT PO Daily June 15, 2019 1:00am December 20, 2023 11:59amStart: 38-60-9418fxsn 1 tablet by mouth once dailycholecalciferol 2000 intl units oral tablet (Vitamin D3) 2,000 International_Unit = 1 tab(s), Oral,Daily Start Date: 04/10/19 Status: Ordered Start: 83-92-9296dszr 1 tablet by mouth once dailycholecalciferol 2000 intl units oral tablet (Vitamin D3) 2,000 International_Unit = 1 tab(s), Oral,Daily Start Date: 04/10/19 Status: Orderedtake 1 capsule by mouth every twenty-four hoursVitamin D3 125 MCG (5000 UT) 1 capsule Orally Once a day Activechondroitin sulfates 400 mg / glucosamine sulfate 500 mg oral tablet (1 source)take 1 tablet by mouth in the morning, then take 1 tablet by mouth in the evening, then take 1 tablet by mouth at bedtimeglucosamine-chondroitin 500- 400 MG tablet Take 1 tablet by mouth in the morning and 1 tablet in theevening and 1 tablet before bedtime. Activediclofenac sodium 75 mg delayed release oral tablet (3 sources)Nonsteroidal Anti-inflammatory DrugStart: 66-64-4522gmmn 1 tablet by mouth twice dailydiclofenac sodium 75 mg Oral EC Tab 75 mg = 1 tab(s), Oral, BID, Refills(s) 0, Arthritis Start Date: 09/14/22 Status: Orderedtake 1 tablet by mouth every twelve hoursDiclofenac Sodium 75 MG 1 tablet as needed Orally Twice a day Activedoxycycline hyclate 100 mg oral capsule (8 sources)Tetracycline-class DrugStart: 37-91-0507dtakdueyymw hyclate 100 mg Cap See Instructions, Take 1 cap the day before your procedure and 1 capthe day of your procedure - afterwards, # 2 cap(s), Refills(s) 0, Pharmacy: [facility] #[id number], 177, cm, 11/18/22 13:54:00 EDT, Height/Length Dosing, 114.7, kg, 11/18/22 13:54:00 EDT, W... Start Date: 12/07/22 Status: OrderedStart: 07-05-2019 End: 89-62-6932unas 1 tablet by mouth twice dailyDoxycycline Hyclate 100 mg tablet Discontinued 100 MG PO Twice daily 14 July 05, 2019 1:00am August 15, 2022 2:41pmglimepiride 2 mg oral tablet (20 sources)SulfonylureaStart: 23-44-7020kvdq 1 tablet by mouth twice daily at breakfastGlimepiride 2 mg tablet Active 2 MG PO Twice daily June 05, 2024 4:32pm administer with breakfastStart: 08-11-2023 End: 10-43-4788ifwe 1 tablet by mouth once daily at breakfastGlimepiride 2 mg tablet Discontinued 2 MG PO Every morning December 20, 2023 12:00am June 05, 2024 4:36pm administer with breakfastStart: 32-98-4372hwrl 1 tablet by mouth twice dailyglimepiride 4 mg Tab 4 mg = 1 tab(s), Oral, BID, Refills(s) 0, Blood glucose Start Date: 09/14/22 Status: Ordered Repeat number: 1Start: 06-18-2019 End: 24-12-2054ljwy 1 tablet by mouth at bedtimeglimepiride 4 mg Tab 4 mg = 1 tab(s), Oral, Bedtime, Refills(s) 0, Blood glucose Start Date: 09/14/22 Status: OrderedStart: 06-18-2019 End: 61-70-5385mrjf 1 mg by mouth once dailyGlimepiride Discontinued 1 MG PO Daily 0 June 18, 2019 1:10pm December 20, 2023 11:51amStart: 06-15-2019 End: 12-29-8117xsxl 2 mg by mouth once dailyGlimepiride Discontinued 2 MG PO Daily June 15, 2019 1:00am June 18, 2019 1:11pmStart: 04-10-2019 End: 14-89-4555tlkt 2 mg by mouth once dailyGlimepiride 4 mg tablet Discontinued 2 MG PO Daily June 15, 2019 1:00am June 18, 2019 1:11pm Arkf-Tnbhc-Dad-D3-Hyal-Silvio Bor (1 source)Start: 15-82-9019tlpi 1 tablet by mouth twice daily Rsyf-Sansd-Lwq-D3-Hyal-Silvio Bor Active 1 TAB PO Twice daily December 20, 2023 12:14noCvpl-Mgdfr-Bbn-D3-Hyal-Silvio Bor 750 mg-100 mg- 25 mcg tablet (1 source)Start: 80-46-8264lwyd 1 tablet by mouth twice daily Xfss-Qtwqx-Hiw-D3-Hyal-Silvio Bor 750 mg-100 mg- 25 mcg tablet Active 1 TAB PO Twice daily December 20, 2023 12:00amglucosamine sulfate 500 mg oral capsule (9 sources)Start: 60-57-5441lbkv 1 capsule by mouth twice dailyglucosamine 500 mg Cap 500 mg = 1 cap(s), Oral, BID, Arthritis Start Date: 04/10/19 Status: OrderedRepeat number: 1Start: 98-72-5849jtpu 1 capsule by mouth once daily glucosamine 500 mg Cap 500 mg = 1 cap(s), Oral, Daily, Arthritis Start Date: 04/10/19 Status: OrderedGlucosamine Chondr 500 Complex - (6 sources)Glucosamine Chondr 500 Complex - as directed Orally TWICE A DAY ActiveGlucosamine Chondr 500 Complex - as directed Orally TWICE A DAY Not-Taking Glucosamine Chondr 500 Complex - as directed Orally Cwourm91 hr isosorbide mononitrate 120 mg extended release oral tablet (16 sources)Nitrate VasodilatorStart: 62-69-9938nroi 1 tablet by mouth once daily, then take 1 tablet by mouth every twenty-four hoursIsosorbide Mononitrate 120 mg tablet extended release 24 hr Active 120 MG PO Daily December 20, 2023 1 2:00amStart: 88-92-2765pqfdkemaby mononitrate 60 mg ER Tab 120 mg = 2 tab(s), Oral, qAM, Refills(s) 0, High blood pressureStart Date: 09/14/22 Status: Ordered Repeat number: 1Start: 30-04-5413isnr 1 tablet by mouth once daily in the morningisosorbide mononitrate 60 mg ER Tab 60 mg = 1 tab(s), Oral, qAM, Refills(s) 0, High blood pressure Start Date: 09/14/22 Status: Ordered ketoconazole 20 mg/ml topical cream (13 sources)Azole AntifungalStart: 36-62-0153Lkgabdypcptb 2 % cream Active 1 APPLIC TOPICAL Twice daily December 20, 2023 12:00amStart: 53-68-0284xwufgccreogl Topical, BID, Refills(s) 0 Start Date: 11/19/22 Status: Ordered Repeat number: 1 Start: 81-46-2149kyshiacqhfnm Topical, BID, Refills(s) 0 Start Date: 11/19/22 Status: OrderedKetoconazole 2 % 1 application Externally Twice a day Active Ketoconazole 2 % 1 application Externally Twice a day ActiveKetoconazole- Hydrocortisone 2 & 1 % kit (1 source)Ketoconazole-Hydrocortisone 2 & 1 % kit Apply topically Active levothyroxine sodium 0.05 mg oral tablet (18 sources)l-ThyroxineStart: 73-15-4350ekpj 1 tablet by mouth once daily Levothyroxine 50 mcg tablet Active 50 MCG PO Daily December 20, 2023 12:00amStart: 12-73-9141rdok 1 tablet by mouth once dailylevothyroxine 50 mcg (0.05 mg) Tab 50 mcg = 1 tab(s), Oral, Daily, Refills(s) 0, Thyroid Start Date: 03/24/20 Status: Ordered Repeat number: 1liothyronine sodium 0.005 mg oral tablet (11 sources)l-TriiodothyronineStart: 53-17-5957vzry 1 tablet by mouth once daily Liothyronine 5 mcg tablet Active 5 MCG PO Daily December 20, 2023 12:00amStart: 68-77-9594qsgz 1 tablet by mouth once dailyliothyronine 5 mcg Tab 5 mcg = 1 tab(s), Oral, Daily, Refills(s) 0, Thyroid Start Date: 09/14/22 Status: Ordered Repeat number: 1lisinopril 20 mg oral tablet (20 sources)Angiotensin Converting Enzyme InhibitorStart: 69-20-3476wjmz 1 tablet by mouth once dailyLisinopril 20 mg tablet Active 20 MG PO Daily December 20, 2023 12:00amStart: 10-84-6080uktd 2 tablets by mouth once dailylisinopril 10 mg Tab 20 mg = 2 tab(s), Oral, Daily, Refills(s) 0, High blood pressure Start Date: 02/23/21 Status: Ordered Repeat number: 1Start: 47-84-9909hcoj 1 mg by mouth once dailylisinopril 10 mg Tab mg tab(s), Oral, Daily, Refills(s) 0 Start Date: 02/23/21 Status: OrderedStart: 06-15-2019 End: 41-19-2267Ixzhpltwen 40 mg tablet Discontinued 60 MG PO Daily June 15, 2019 1:00am June 18, 2019 1:11pmStart: 06-15-2019 End: 70-34-6043erye 60 mg by mouth once dailyLisinopril Discontinued 60 MG PO Daily June 15, 2019 1:00am June 18, 2019 1:11pmtake 1 tablet by mouth every twenty-four hoursLisinopril 20 MG 1 tablet Orally Once a day Active take 1.5 tablets by mouth every twenty-four hoursLisinopril 10 MG 1.5 tablet Orally Once a day for 90 day(s) ActiveMagnesium (7 sources)Start: 46-65-7198uaam 1 tablet by mouth once dailyMagnesium Magnesium, one tab, Oral, Daily Start Date: 11/19/22 Status: Ordered Repeat number: 1Start: 85-45-9170qamf 1 tablet by mouth once dailyMagnesium Magnesium, one tab, Oral, Daily Start Date: 11/19/22 Status: OrderedMagnesium 400 MG as directed Orally ActiveMagnesium 400 MG as directed Orally Not-Takingmagnesium lactate 84 mg extended release oral tablet (1 source)take 1 tablet by mouth once dailymagnesium lactate CR (Magtab) 84 MG (7MEQ) ER tablet Take 84 mg by mouth Daily Activemagnesium oxide 400 mg oral tablet (2 sources)Start: 38-28-8484jesh 1 tablet by mouth once dailyMagnesium Oxide 400 mg (241.3 mg magnesium) tablet Active 400 MG PO Daily December 20, 2023 12:00am metoprolol tartrate 50 mg oral tablet (20 sources)beta-Adrenergic BlockerStart: 11-75-4479cmih 1 tablet by mouth twice dailymetoprolol 50 mg ER Tab 50 mg = 1 tab(s), Oral, BID, Refills(s) 0, High blood pressure Start Date: 03/24/20 Status: Ordered Repeat number: 1Start: 59-13-7821gsst 1 tablet by mouth once dailymetoprolol 50 mg ER Tab 50 mg = 1 tab(s), Oral, Daily, Refills(s) 0, High blood pressure Start Date: 03/24/20 Status: OrderedStart: 53-67-0282gqzh 1 tablet by mouth in the morningmetoprolol tartrate (Lopressor) 50 MG tablet Take 1 tablet by mouth in the morning and 1 tablet before bedtime. 05/09/2023 Activenitroglycerin 0.4 mg sublingual tablet (20 sources)Nitrate VasodilatorStart: 62-09-5935Ndcnobwztwwwx 0.4 mg tablet, sublingual Active 0.4 MG SUBLINGUAL every 5 to 15 minutes as needed December 20, 2023 12:00amStart: 55-44-1677ewgscvkdfujfs (Nitrostat) 0.[address] 1 tablet as needed by sublingual route for 30 days. 05/25/2023 ActiveStart: 47-43-4246pzljrvwhzieva 0.4 mg, SubLingual, q5min, PRN Chest pain Start Date: 11/18/22 Status: Ordered Repeat number: 1Start: 06-15-2019 End: 08-58-8964Xslknidrjvmjx 0.3 mg Tablet, Sublingual Discontinued 0.3 MG SUBLINGUAL every 5 to 15 minutes as needed for Chest Pain June 15, 2019 1:00am December 20, 2023 11:54amNitroglycerin 0.3 MG as directed Sublingual Active pioglitazone 15 mg oral tablet (12 sources)Peroxisome Proliferator Receptor alpha Agonist, Peroxisome Proliferator Receptor gamma Agonist, ThiazolidinedioneStart: 01-93-1829nyry 1 tablet by mouth once dailypioglitazone (Actos) 15 MG tablet TAKE 1 TABLET BY MOUTH ONCE DAILY for 90 12/24/2022 Nnlsrq93 hr ranolazine 500 mg extended release oral tablet (10 sources)Anti-anginalStart: 48-61-7770ethd 1 tablet by mouth twice daily Ranolazine 500 mg tablet extended release 12 hr Active 500 MG PO Twice daily December 20, 2023 12:00amStart: 59-12-8541fnxcqxgtrw (Ranexa) 500 MG 12 hr tablet every 12 (twelve) hours 05/25/2023 ActiveStart: 33-14-8813rewy 1 tablet by mouth once dailyranolazine 500 mg oral ER Tab 500 mg = 1 tab(s), Oral, Daily Start Date: 11/18/22 Status: Ordered Repeat number: 1take 1 tablet by mouth every twelve hoursRanolazine ER 500 MG 1 tablet Orally Twice a day Activesildenafil 100 mg oral tablet (5 sources)Phosphodiesterase 5 InhibitorStart: 05-63-9961Unijio 100 mg Tab 100 mg = 1 tab(s), Oral, As Directed, 1 hour before sexual activity, # 30 tab(s), Refills(s) 2, Pharmacy: [id number], 174, cm, 08/18/20 12:16:00 EST, Height/Length Dosing, 111, kg, 08/18/20 12:16:00 EST, Weight Dosing Start Date: 08/18/20 Status: OrderedSpiriva Respimat 1.25 mcg/inh inhalation aerosol (1 source)Start: 64-44-1963Kzioxgd Respimat 1.25 mcg/inh inhalation aerosol puff(s), Inhalation, Daily, Refill(s) 0 Start Date: 02/23/21 Status: Ordered terbinafine 250 mg oral tablet (2 sources)Allylamine AntifungalStart: 53-61-4687livv 1 tablet by mouth once dailyterbinafine 250 mg oral tablet 250 mg = 1 tab(s), Oral, Daily Start Date: 04/11/19 Status: Nvvbhgr14 actuat tiotropium 0.0025 mg/actuat inhalation spray (17 sources)AnticholinergicStart: 75-18-1146ssnk 1 puff(s) by inhalation once dailyTiotropium Bude (Spiriva Respimat) 2.5 mcg/actuation mist Active 2 PUFF INHALATION Daily December 20, 2023 12:00amStart: 04-61-2494Kkjrwtq Respimat 1.25 mcg/inh inhalation aerosol 2 puff(s), Inhalation, Daily Shortness of breath or wheezing, Refill(s) 0, COPD Start Date: 02/23/21 Status: Ordered Repeat number: 1 Start: 46-18-5681Ajvnruk Respimat 1.25 mcg/inh inhalation aerosol puff(s), Inhalation, Daily, Refill(s) 0 Start Date: 02/23/21 Status: Orderedtake 1 capsule by inhalation in the morningtiotropium (Spiriva) [address] 1 capsule into inhaler and inhale in the morning. Activetake 2 puff(s) by inhalation once dailySpiriva Respimat 2.5 MCG/ACT 2 puffs Inhalation Once a day Activetake 2 puff(s) by inhalation once dailySpiriva Respimat 2.5 MCG/ACT 2 puffs Inhalation Once a day ActiveVitamin B Complex (7 sources)Start: 02-86-9931hivg 1 capsule by mouth once dailyVitamin B Complex Active 1 CAP PO Daily December 20, 2023 12:00am administer with a mealVitamin B Complex - as directed Orally Not-TakingVitamin B Complex - as directed Orally ActiveVitamin B Complex capsule (1 source)Start: 41-84-1762bwgc 1 capsule by mouth once dailyVitamin B Complex capsule Active 1 CAP PO Daily December 20, 2023 12:00am administer with a meal Vitamin B Complex oral capsule (9 sources)Start: 81-60-8925hrmt 1 capsule by mouth once dailyVitamin B Complex oral capsule 1 cap(s), Oral, Daily, Prophylaxis Start Date: 03/24/20 Status: Ordered Repeat number: 1Start: 72-25-4202nbru 1 capsule by mouth once daily Vitamin B Complex oral capsule 1 cap(s), Oral, Daily, Prophylaxis Start Date: 03/24/20 Status: OrderedStart: 25-81-9294iqwa 1 capsule by mouth once daily Vitamin B Complex oral capsule 1 cap(s), Oral, Daily Start Date: 03/24/20 Status: OrderedVitamin D3 (9 sources)Start: 85-78-5449uedl 50 ug by mouth once dailyVitamin D3 50 mcg, Oral, Daily, Refills(s) 0, Prophylaxis Start Date: 08/18/20 Status: Ordered Repeat number: 1Start: 50-79-9921eazf 50 ug by mouth once dailyVitamin D3 50 mcg, Oral, Daily, Refills(s) 0, Prophylaxis Start Date: 08/18/20 Status: Ordered Start: 37-84-1280Solqkxj D3 Refills(s) 0 Start Date: 08/18/20 Status: Ordered Vitamin D3 125 MCG (5000 UT) (1 source)take 1 capsule by mouth once dailyVitamin D3 125 MCG (5000 UT) 1 capsule Orally Once a day Active Completed/Discontinued Medications MedicationDrug Class(es)DatesSig (Normalized)Sig (Original)acetaminophen 300 mg / codeine phosphate 30 mg oral tablet (7 sources)Opioid AgonistStart: 06-15-2019 End: 17-33-3858rqtp 1 tablet by mouth every six hours as needed for pain Acetaminophen-Codeine (Tylenol-Codeine #3) 300-30 mg Tablet Discontinued 300 MG PO Q6H as needed for Pain June 15, 2019 1:00am July 05, 2019 10:12am amLODIPine 2.5 mg oral tablet (20 sources)Dihydropyridine Calcium Channel BlockerStart: 17-96-9802smNAXUIdua 2.5 mg Tab 90 EA, 0 Refill(s), TAKE 1 TABLET BY MOUTH DAILY, Refills(s) 0 Start Date: 12/10/24 Status: Ordered Repeat number: 1Start: 94-11-5957hyiy 1 tablet by mouth once dailyAmlodipine 2.5 mg tablet Active 0 .ROUTE .COMPLEX November 27, 2024 11:28am TAKE 1 TABLET BY MOUTH DAILYStart: 06-05-2024 End: 48-22-5150oeub 1 tablet by mouth once dailyAmlodipine 2.5 mg tablet Discontinued 2.5 MG PO Daily June 05, 2024 1:00am November 27, 2024 1 1:29amStart: 09-40-2750kffd 5 mg by mouth once dailyamLODIPine 10 mg Tab 5 mg = 0.5 tab(s), Oral, Daily, Refills(s) 0, High blood pressure Start Date: 02/23/21 Status: OrderedStart: 06-15-2019 End: 05-61-1836royb 1 tablet by mouth once dailyAmlodipine 10 mg tablet Discontinued 10 MG PO Daily June 15, 2019 1:00am December 20, 2023 11:50am atorvastatin 80 mg oral tablet (20 sources)HMG-CoA Reductase InhibitorStart: 06-15-2019 End: 99-47-7487Jbalukyfwrtg 80 mg tablet Discontinued 40 MG PO Bedtime June 15, 2019 1:00am December 20, 2023 11:50amStart: 06-15-2019 End: 33-97-1092hlzu 40 mg by mouth at bedtimeAtorvastatin Discontinued 40 MG PO Bedtime June 15, 2019 1:00am December 20, 2023 11:50amStart: 64-63-3663uwgb 1 tablet by mouth once dailyatorvastatin 80 mg Tab 80 mg = 1 tab(s), Oral, Daily, High cholesterol Start Date: 04/10/19 Status:Ordered Repeat number: 1 dicyclomine hydrochloride 10 mg oral capsule (7 sources)AnticholinergicStart: 06-18-2019 End: 43-31-6514btqr 1 capsule by mouth three times daily as needed for muscle spasmsDicyclomine 10 mg capsule Discontinued 10 MG PO Three times daily as needed for spasm 14 June 18, 2019 1:09pm December 20, 2023 11:59am for bladder spasmsmetFORMIN hydrochloride 1000 mg oral tablet (7 sources)BiguanideStart: 06-15-2019 End: 38-73-3107bkam 1 tablet by mouth twice dailyMetformin 1,000 mg tablet Discontinued 1000 MG PO Twice daily June 15, 2019 1:00am June 18, 2019 1:11pmSITagliptin 100 mg oral tablet (20 sources)Dipeptidyl Peptidase 4 InhibitorStart: 06-18-2019 End: 27-06-2183Kiqrefxxzfa Phosphate 100 mg tablet Discontinued 50 MG PO Daily 0 June 18, 2019 1:10pm December 20, 2023 12:02pmStart: 06-18-2019 End: 45-51-5365qqbv 50 mg by mouth once dailySitagliptin Phosphate Discontinued 50 MG PO Daily 0 June 18, 2019 1:10pm December 20, 2023 12:02pmStart: 04-10-2019 End: 81-52-7961iezz 1 tablet by mouth once dailyJanuvia 100 mg Tab 100 mg = 1 tab(s), Oral, Daily, Blood glucose Start Date: 04/10/19 Status: Ordered Repeat number: 1SITagliptin Phosphate 50 MG as directed Orally Activeticagrelor 90 mg oral tablet (7 sources)Start: 06-15-2019 End: 82-31-8281bqog 1 tablet by mouth twice dailyTicagrelor 90 mg tablet Discontinued 90 MG PO Twice daily June 15, 2019 1:00am July 05, 2019 10:12amtriamcinolone acetonide 5 mg/ml topical cream (10 sources)CorticosteroidStart: 12-20-2023 End: 30-94-5050Srttnnlhdxhbd Acetonide 0.5 % cream Discontinued 1 APPLIC TOPICAL Twice a Week December 20, 2023 12:00am December 03, 2024 2:20pmStart: 11-19-2022 triamcinolone acetonide Topical, BID, PRN Itching, Refills(s) 0 Start Date: 11/19/22 Status: OrderedRepeat number: 1Start: 03-78-0424mftikwahspnhi acetonide Topical, BID, PRN Itching, Refills(s) 0 Start Date: 11/19/22 Status: Ordered triamcinolone (Kenalog) 0.1 % cream 1 Application ActiveTriamcinolone Acetonide 0.5 % 1 application Externally Two times a Week ActiveTriamcinolone Acetonide 0.5 % 1 application Externally Two times a Week Active Problems Active Problems Problem ClassificationProblemDateDocumented DateEpisodic/ChronicAbdominal pain (9 sources)Flank zabg49-03-6621VpdxseuwTbkzu and unspecified renal failure (7 sources)Renal failure syndrome; Translations: [Unspecified kidney failure] 22-54-1805LtapzuuNaunu and unspecified renal failure (20 sources)Acute renal failure syndrome; Translations: [Injury of kidney]Onset: [id number] on above:Problem List clean-up per request of Phys. EHR CmteAcute myocardial infarction (9 sources)Myocardial jlnozxaovo03-62-6964IpngluzEoczpinp of urinary tract (20 sources)Kidney stone; Translations: [Calculus of kidney]Onset: 05-26-2021 Resolved: 88-34-1988AqmvlffySpnwwrt on above:Problem List clean-up per request of Phys. EHR CmteCancer of prostate (13 sources)Malignant tumor of prostate; Translations: [Malignant neoplasm of prostate]Onset: 613954-82-2915WejoimsSwxjbux kidney disease (20 sources)Chronic kidney disease; Translations: [Chronic kidney disease, unspecified]29-39-1716JjsylnmZjchbli kidney disease (13 sources)Chronic kidney disease; Translations: [Chronic kidney disease, stage III (moderate)]Onset: 05-26-2021 Resolved: 59-03-2662Bgqlchr obstructive pulmonary disease and bronchiectasis (11 sources)Chronic obstructive lung disease; Translations: [Chronic obstructive pulmonary disease, unspecified]Onset: 850759-64-8890FmlvokuApmyhwjypq heart failure; nonhypertensive (2 sources)Chronic diastolic (congestive) heart failure; Translations: [Chronic diastolic (congestive) heart failure]Onset: 30-08-4676BogcogvJaugzvwg atherosclerosis and other heart disease (20 sources)Coronary arteriosclerosis; Translations: [Atherosclerotic heart disease of deering coronary artery without angina pectoris]Onset: 05-16-2013 94-08-4773IkeqetlMxqmyjj on above:Problem List clean-up per request of Phys. EHR CmteCoronary atherosclerosis and other heart disease (8 sources)Patient post percutaneous transluminal coronary angioplasty; Translations: [Coronary angioplasty status]Onset: 68-72-5804JdzydhouEfbupoirlb and other anemia (6 sources)Anemia of renal disease; Translations: [Anemia in chronic kidney disease]ChronicDeficiency and other anemia (2 sources)Anemia in chronic kidney diseaseChronicDiabetes mellitus with complications (20 sources)Diabetes mellitus; Translations: [Type 2 diabetes mellitus with other circulatory complications]Onset: 05-26-2021 Resolved: 68-15-2966FjxyjboDqwlccn on above:Problem List clean-up per request of Phys. EHR CmteDiabetes mellitus without complication (20 sources)Type 2 diabetes mellitus; Translations: [Diabetes mellitus]Onset: 916505-39-6404HduehyfRpgypvnr mellitus without complication (1 source)Other abnormal glucose; Translations: [OTHER ABNORMAL GLUCOSE]Onset: 44-05-8514HvziplslAfmlmxsvt of lipid metabolism (20 sources)Hyperlipidemia; Translations: [Hyperlipidemia, unspecified]Onset: 987888-98-4201ZrmnwziOhyxfbaxe hypertension (20 sources)Hypertensive disorder; Translations: [Essential (primary) hypertension]Onset: 637143-32-2624WizfixiOdqig and electrolyte disorders (18 sources)Metabolic acidosis; Translations: [Metabolic acidosis]Onset: 90-77-293108180133-63-7210AlxajjawEspnrkl on above:Problem List clean-up per request of Phys. EHR CmteGenitourinary symptoms and ill-defined conditions (20 sources)Nocturia; Translations: [Nocturia]Onset: 74-26-7270MwkvlodhQafpmem on above:Problem List clean-up per request of Phys. EHR CmteHyperplasia of prostate (20 sources)Benign prostatic hypertrophy with outflow obstruction; Translations: [Benign prostatic hyperplasia with lower urinary tract symptoms]Onset: 76-76-1665OeugfsuTzcokwv on above:Problem List clean-up per request of Phys. EHR CmteHypertension with complications and secondary hypertension (20 sources)Chronic kidney disease due to hypertension; Translations: [Hypertensive chronic kidney disease withstage 1 through stage 4 chronic kidney disease, or unspecified chronic kidney disease]Onset: 05-26-2021 Resolved: 32-11-0065AxdfrirVgoxbundt; nephrosis; renal sclerosis (10 sources)Atrophy of left kidney; 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)] 80-49-2574OagfdxiMklfvirzrxpxc gastroenteritis (9 sources)Postprandial ouqgobtv75-92-5935ZsnjptyaNgzka and unspecified benign neoplasm (9 sources)Hyperplastic polyp of large teilslvge50-41-7246WezclkqhIqrrn connective tissue disease (4 sources)Pain in right leg; Translations: [PAIN IN RIGHT LEG]Onset: 11-10-2022 EpisodicOther diseases of kidney and ureters (8 sources)Secondary hyperparathyroidism; Translations: [Secondary hyperparathyroidism of renal origin]17-38-9606NmtbjrcLrfns diseases of kidney and ureters (9 sources)Secondary hyperparathyroidism of renal origin; Translations: [Secondary hyperparathyroidism (of renal origin)]Onset: 05-26-2021 Resolved: 78-09-4588NauismkHmwor diseases of kidney and ureters (9 sources)Urinary tract obstruction; Translations: [Other obstructive and reflux uropathy]Onset: 26-56-8141AkztalguQnfrlvi on above:Problem List clean-up per request of Phys. EHR CmteOther diseases of kidney and ureters (17 sources)Hydronephrosis; Translations: [Unspecified hydronephrosis]08-08-2019 EpisodicComment on above:Problem List clean-up per request of Phys. EHR Cmte Other diseases of kidney and ureters (9 sources)Hydronephrosis due to ureteral -09-1870HsxzbpytMmuzy diseases of kidney and ureters (7 sources)Acute renal insufficiency; Translations: [Disorder of kidney and ureter, unspecified]16-60-7769AadtxetsIheriwm on above:Problem List clean-up per request of Phys. EHR CmteOther diseases of kidney and ureters (7 sources)Occlusion of ureter; Translations: [Crossing vessel and stricture of ureter without hydronephrosis]49-06-3108AoruhugdEabsywb on above:Problem List clean-up per request of Phys. EHR CmteOther diseases of kidney and ureters (7 sources)Obstructive nephropathy; Translations: [Other obstructive and reflux uropathy]52-43-1080ObcekdfpAtfkclz on above:Problem List clean-up per request of Phys. EHR CmteOther diseases of kidney and ureters (1 source)Disorder of kidney and ureter, unspecified; Translations: [Unspecified disorder of kidney and ureter]35-90-5432KianufwoOibyg diseases of kidney and ureters (7 sources)Hydronephrosis with renal and ureteral calculous obstruction; Translations: [Calculus of ureter]95-38-7693WjfbsskpAknlptg on above:Problem List clean-up per request of Phys. EHR CmteOther diseases of kidney and ureters (1 source)Other obstructive and reflux uropathy; Translations: [Other specified disorders of kidney and ureter]81-86-7995GzyigiygTxllj gastrointestinal disorders (9 sources)Occult blood in -47-3523AvpxoptgQghdm lower respiratory disease (7 sources)Nodule of lung; Translations: [Solitary pulmonary nodule]08-15-2022 EpisodicComment on above:Problem List clean-up per request of Phys. EHR Cmte Other lower respiratory disease (1 source)Other forms of dyspnea; Translations: [OTHER FORMS OF DYSPNEA]Onset: 36-87-1683ImslcqojYzgre lower respiratory disease (6 sources)Shortness of breath; Translations: [SHORTNESS OF BREATH]Onset: 97-83-3018YkbuihmcRuyim male genital disorders (12 sources)Male erectile dysfunction, unspecified; Translations: [Erectile dysfunction]Onset: 19-59-5674YsjalpfGvhic male genital disorders (4 sources)Disorder of prostate, unspecified; Translations: [DISORDER OF PROSTATE UNSPECIFIED]Onset: 51-05-5964MoqxdofmIykpo nervous system disorders (2 sources)Carpal tunnel syndrome; Translations: [Carpal tunnel syndrome, unspecified upper limb]Onset: 930156-16-7801KbhstrtVvcdx nutritional; endocrine; and metabolic disorders (6 sources)Morbid obesity; Translations: [Morbid (severe) obesity due to excess calories]ChronicOther nutritional; endocrine; and metabolic disorders (6 sources)Body mass index 30+ - obesity; Translations: [Body mass index (BMI) 36.0-36.9, adult]ChronicOther nutritional; endocrine; and metabolic disorders (7 sources)H/O: qqvlpfyeoqpbmm30-78-8890QaagamiaRouit nutritional; endocrine; and metabolic disorders (1 source)Hyperuricemia; Translations: [Hyperuricemia without signs of inflammatory arthritis and tophaceous disease]88-02-3381WmlanvfhHyzxm nutritional; endocrine; and metabolic disorders (1 source)Hyperuricemia without signs of inflammatory arthritis and tophaceous disease; Translations: [Other abnormal blood chemistry]55-47-2316ObwxhfeuZurjd screening for suspected conditions (not mental disorders or infectious disease) (20 sources)Raised prostate specific antigen; Translations: [Elevated prostate specific antigen [PSA]]Onset: 878413-68-9408SeomforiOcgvxub on above: Problem List clean-up per request of Phys. EHR CmteRheumatoid arthritis and related disease (9 sources)Rheumatoid enbyqojwh62-37-0106MbaumwqAcfiwkceb and history of mental health and substance abuse codes (7 sources)Ex-smoker; Translations: [Personal history of nicotine dependence] Onset: 44-48-1292PcmjxvypCgonmgn disorders (1 source)Hypothyroidism, unspecified; Translations: [HYPOTHYROIDISM UNSPECIFIED]Onset: 59-50-5121OnryfsdMzpydnbhibqq (9 sources)Drug therapy oasyxue15-73-8895Iksvbqnziplz (4 sources)CHRN KIDNEY DISEASE STG 3 UNSP; Translations: [CHRN KIDNEY DISEASE STG 3 UNSP]Onset: 30-82-6914Adbfuqhwndxf (1 source)CONTACT W/AND (SUSP) EXPOS COVID-19; Translations: [CONTACT W/AND (SUSP) EXPOS COVID-19]Onset: 94-30-8928Jficqfaitlth (1 source)Benign prostatic hyperplasia with lower urinary tract symptoms; Translations: [Benign prostatic hyperplasia with lower urinary tract symptoms] Onset: 66-14-6966Bwbtkcl tract infections (14 sources)Pyelonephritis; Translations: [Tubulo-interstitial nephritis, not specified as acute or chronic]50-78-4437RvctsccvRnyerfw on above:Problem List clean-up per request of Phys. EHR Cmte Past or Other Problems Problem ClassificationProblemDateDocumented DateEpisodic/ChronicMalaise and fatigue (1 source)Other fatigue; Translations: [OTHER FATIGUE]Onset: 62-67-2671Pvlhrqxy Nonspecific chest pain (2 sources)Chest pain; Translations: [Chest pain, unspecified]Onset: 05-16-2013 11-20-7708PmzxbjwuEbrhs aftercare (1 source)FDC (current) use of aspirin; Translations: [RETAIL VISUAL MERCHANDISER CURRENT USE OF ASPIRIN]Onset: 94-48-4347IbykokfhYvigr aftercare (1 source)Other care home (current) drug therapy; Translations: [OTH RETAIL VISUAL MERCHANDISER CURRENT DRUG THERAPY]Onset: 17-81-4606LmtxifmeYdgzb connective tissue disease (4 sources)Impingement syndrome of unspecified shoulder; Translations: [IMPINGEMENT SYNDROME UNS SHOULDER]Onset: 18-99-0776AnjnifluXfozx non-traumatic joint disorders (1 source)Pain in right shoulder; Translations: [PAIN IN RIGHT SHOULDER]Onset: 59-65-6213DnikopnnQdxzj non-traumatic joint disorders (4 sources)Pain in left knee; Translations: [PAIN IN LEFT KNEE]Onset: 02-03-2022 EpisodicUnclassified (1 source)CHRN KIDNEY DISEASE STG 3 UNSP; Translations: [CHRN KIDNEY DISEASE STG 3 UNSP]Onset: 08-18-2022 Results Test NameValueInterpretationReference HvogjUimovllv93ru 48-00-801445Zg informed NormalSelect Medical [facility] Hospital, BeachwoodFollow-Upon 09-49-0006Gjwakb-[id number] Victorino Smyth 1940 M Date Provider Department Center 01/28/2025 Kia-JENNIFER HUYNH FABIOLA Ruiz Family History Problem Relation Age of Onset No Known Problems Mother No Known Problems Father Family Status - Relation Status Age at Mother Father Level of Service:62386 [place] OFFICE/OUTPATIENT ESTABLISHED MOD MDM 30 [facility] [place]36on 26-51-594173Jnoyszm Dr. Huynh of message prior to him seeing the [...] follow up BMP in 1 week. Thalia Salomon MA to Jennifer Huynh MD [place] 01/03/25 8:46 AM See attached Me DC 01/03/25 8:31 AM Note Phone call from patient. Patient states Dr. Alfaro called him his BMP was abnormal. Patient states Dr. Alfaro's wants to know what you are going [...] increase in the ranolazine. Please advise. Thalia Salomon MA to Jennifer Huynh MD [place] 01/02/25 8:37 AM PT stopped in before his lab draw, states he had some red urine this morning. He does have kidney issues, I told him I would let you know and that we would wait for the labsNormalUniversity of [facility] CenterTenorth[facility] 01-16-2025 [id number] Victorino Smyth 1940 M Date Provider Department [place] 01/16/2025 DELFIN AKBAR BH FABIOLA [facility] Family History Problem Relation Age of Onset No Known Problems Mother No Known Problems Father Family Status - Relation Status Age at Mother Father Deceased[address] 55-94-650233Cntqb call from patient. Patient states Dr. Alfaro called him his BMP was abnormal. Patient states Dr. Alfaro's wants to know what you are going [...] to the increase in the ranolazine. Please advise.[facility] Rut[facility] HospitalTelephoneon [id number] Aristides Smythdanyelle Adams 1940 Date Provider Department Center 01/02/2025 [facility] Family History Problem Relation Age of Onset No Known Problems Mother No Known Problems Father Family Status - Relation Status Age at Mother FatherNormalUniUniversity Hospitals [facility] 98-87-0155VXW&P reviewed. The patient was examined and there are no changes to the H&P. Consent for blood products obtained. Risks, benefits, and alternatives to procedure discussed with patient in detail who expressed understanding and agreed to proceed. Risks discussed included progression or renal disease, renal failure, bleed, heart attack, stroke, and .[facility] HospitalNURSNOTEon 71-56-5317IBRFMSAISK educated pt on discharge instructions. RN encouraged pt to voice any questions or concerns. Pt verbalizes no questions or concerns at this time. Pt was wheeled off unit with all belongings.[facility] Hospitalon 81-20-2572NYQB Cardiology - [facility] Subjective Victorino Smyth is a 84 [...] kidney disease) stage 3, GFR 30-59 ml/min ([facility]CC) Clot retention of urine Coronary artery disease [...] stent to the LAD at [facility], was on Brilinta but currently [...] There is no abdominal (more content not included)...NormalUnMercy Health St. Elizabeth Youngstown HospitalOffice Visiton 47-46-1585Qehaut-up [id number] Victorino Smyth 1940 M Date Provider Department Center 12/24/20[facility] Family History Problem Relation Age of Onset No Known Problems Mother No Known Problems Father Family Status - Relation Status Age at Mother Father Level of Service:09851 [place] OFFICE/OUTPATIENT ESTABLISHED HIGH MDM 40 [facility] OhioAmbulatory Visit Summaryon 12-10-2024 Ambulatory Visit SummaryAmbulatory Visit Summary VICTORINO SMYTH :1940 Visit Date:12/10/2024 Ambulatory Visit Instructions Your [...] Comments: 6 mos w/ PSA Where: [address] [employer] [address] [place] [address]- You Need to Complete the Following [...] By Mouth 2 times a day Contact prescribingphysician if questions or concerns Unchanged multivitamin (Vitamin [...] 1 Tablets By Kamala (more content not included)...UC HealthCHEMISTRYOrdered By: SYSTEM SYSTEM on 38-64-7511Tmor PSA [Mass/Vol]0.8 ng/mLInvalid Interpretation CodeRemisol ChemComment on above:Interpretive Data: The concentration of free PSA and total PSA determined with assays from different manufacturers can vary due to differences in assay methods and specificity. Values obtained with di fferent plasma center nurse's assays cannot be used interchangeably. The methodology used to obtain this result was chemiluminescence using [employer]'s Access Hybritech PSA reagent and Access Hybritech free PSA reagent.Free PSA/Total PSA [Mass fraction]13.8 %Low>=25.0%Remisol ChemProstate specific Ag [Mass/Vol]5.8 ng/mLHigh0.1 - 3.5 ng/mLRemisol ChemComment on above:Interpretive Data: The concentration of PSA determined by different manufacturers can vary due to di fferences in assay methods and reagent specificity. Values obtained from different assay methods cannot be used interchangeably. The methodology used for this result was chemiluminescence using [employer]'s Access Hybritech PSA reagent.Urology Office/Clinic Noteon 32-73-5928Szdwjch Office/Clinic NoteUrology Office/Clinic Note Chief Complaint 6mo f/u HPI [...] go right now . pt states goes 1- 2x a night. pt states strong stream but [...] elevated 8.2 [2] volume isn't bad, he producedaround 2L, minimum goal is 2.5L but ideally [...] he lost the order. -Obtain VALENTINA @ [facility]. Will call pt w results. 3. [...] Information CARLOS OLIVEROS, Ni P, URL [address] [place], [place] [id number]- Additional Instructions: 6 mos w/ PSA Patient Education Prostate Cancer Screening IVale, personally scribed for Dr. Olivares on 12/10/2024 11:37:28. . Documentation recorded by the Vale alvarez acurately reflects the services(s) I performed anddecisions made by me. Authenticated by Dr. Olivares on 12/10/2024 11:46:32. Portions of this record may have been created with voice recognition artificial intelligence software, specifically ThisLife, [employer]raCoat and or Agency Entourage Experience. Substitutions may have occurred due to the [...] Biopsy of prostate ( (more content not included)...UC HealthComment on above:Result Comment: Electronically Signed By: Ni OLIVARES MD\.br\Date and Time Signed: 12/10/24 11:47 EDT\.br\Electronically Co- Signed By: Vale Bryan\.br\Date and Time Co-Signed: 12/10/24 11:37 EDT Reminderson 70-27-9113TgcxdcpseVsrogardx From: Shira Mauricio To: JACOB Olivares; Sent: [...] ) Other: PROVIDER RELATED REMINDER:_ ( ) [employer] ( ) Call Pharmacy ( ) Call Lab ( ) Other: Special Instructions:_ Comments:_ LM on reminding pt to get VALENTINA done, advise pt to call back LM on advise pt the order will be sent [facility] to get PSA & VALENTINA doneNormalFisher Sinai Hospital Of BaltimoreErythrocyte distribution width Auto (RBC) [Ratio]on 40-02-5512Ciwxugsaadm distribution width (RBC) [Ratio]Erythrocyte distribution width [Ratio] by Automated count11.0-15.0[facility] Estimated glomerular filtration rate (GFR) non- Americanon 11-27-2024 GFR/1.73 sq M.predicted among non-blacks MDRD (S/P/Bld) [Vol rate/Area]Estimated glomerular filtration rate (GFR) non- AmericanLow>=60 mL/min/1.73m 2 [facility] HospitalHematocrit Auto (Bld) [Volume fraction]on 49-38-2410Xpqxxbbhtg (Bld) [Volume fraction]Hematocrit [Volume Fraction] of Blood by Automated scrgkYru18.0-54.0[facility] HospitalHemoglobin [Mass/volume] in Bloodon 85-86-9010Njcwvybajf (Bld) [Mass/Vol]Hemoglobin [Mass/volume] in FpzaoOqx71.0-18.0[facility] HospitalLaboratory - Chemistry and Chemistry - challengeon 62-12-9134Klopvlr [Mass/Vol]3.3 g/dLLow 3.4-5.0[facility] HospitalCalcium [Mass/Vol]9.2 mg/dL8.5-10.1 [facility] HospitalChloride [Moles/Vol]109 mmol/HOlqb32-500 [facility] HospitalCO2 [Moles/Vol]24.5 mmol/L21.0-32.0[facility] HospitalCreatinine [Mass/Vol]1.70 mg/dLHigh0.70-1.30[facility] HospitalGFR/1.73 sq M.predicted MDRD (S/P/Bld) [Vol rate/Area]47 mL/min/{1.73_m2}Low>=60 mL/min/1.73m 2FGreen Cross HospitalGlucose [Mass/Vol]152 mg/vQTlud48-646LwijnzbarHocking Valley Community HospitalMagnesium [Mass/Vol]1.8 mg/dL1.8-2.4FGreen Cross HospitalPotassium [Moles/Vol] 4.7 mmol/L3.5-5.1FLouis Stokes Cleveland VA Medical Centerodium [Moles/Vol]145 mmol/L 136-145[facility] HospitalUrate [Mass/Vol]6.8 mg/dL3.5-7.2 [facility] HospitalUrea nitrogen [Mass/Vol]23.0 mg/dLHigh7.0-18.0 [facility] HospitalUrea nitrogen/Creatinine [Mass ratio]13.5 mg/mg [facility] HospitalLaboratory - Urinalysison 81-65-1104Ltyhpxm (U) [Mass/Vol]33.1 mg/dLHigh<=11.9[facility] HospitalLeukocytes [#/volume] corrected for nucleated erythrocytes in Blood by Automated counon 70-20-3655WGJ corrected for nucl RBC Auto (Bld) [#/Vol]Leukocytes [#/volume] corrected for nucleated erythrocytes in Blood by Automated coun4.0-11.0[facility] HospitalMCH Auto (RBC) [Entitic mass]on 76-61-8801JDQ (RBC) [Entitic mass]MCH [Entitic mass] by Automated wktgvGona39.9-34.0[facility] HospitalMCHC Auto (RBC) [Mass/Vol]on 39-10-8451ZZHE (RBC) [Mass/Vol]MCHC [Mass/volume] by Automated count29.9-35.2FGreen Cross HospitalMCV Auto (RBC) [Entitic vol]on 57-25-3645MPY (RBC) [Entitic vol] MCV [Entitic volume] by Automated xhodlYbcm44.0-94.0[facility] HospitalNo Panel Informationon 696987-Wcmulap Vitamin D Total70.4 ng/mL [facility] HospitalComment on above:<20 ng/mL Vit D izdkoctoj69- <30 ng/mL Vit D nniaprmmzzug22-738 ng/mL Vit D sufficient>100 ng/mL Potential ToxicityParathyroid Hormone (Intact)40 pg/cG02-94KnnfjhdibHocking Valley Community HospitalComment on above:Performed at: - [facility] [id number] Director: Lee Bob PhD, Phone: [phone] Phosphorus Level3.9 mg/dL2.6-4.7FGreen Cross HospitalUrine Random Fomleinzkz654.73 mg/dL20.00-300.00[facility] HospitalPlatelet mean volume Auto (Bld) [Entitic vol]on 95-83-1022Lvpastis mean volume (Bld) [Entitic vol]Platelet mean volume [Entitic volume] in Blood by Automated count9.5-13.5 [facility] HospitalPlatelets Auto (Bld) [#/Vol]on 11-27-2024 Platelets (Bld) [#/Vol]Platelets [#/volume] in Blood by Automated qbkva618-552 [facility] HospitalRBC Auto (Bld) [#/Vol]on 35-01-4516IDG (Bld) [#/Vol]Erythrocytes [#/volume] in Blood by Automated countLow4.70-6.10Magruder Hospitalerum or plasma anion gap determinationon 67-50-1048Folip gap [Moles/Vol]Serum or plasma anion gap determinationHocking Valley Community HospitalUrine protein/creatinine ratioon 78-20-0397Nphqqyv/Creatinine (U) [Ratio]Urine protein/creatinine ratioHocking Valley Community HospitalAmbulatory Visit Summaryon 94-36-7038Umvjvuyjkx Visit SummaryAmbulatory Visit Summary SMYTH VICTORINO M :1940 Visit Date:06/12/2024 Ambulatory Visit Instructions Your [...] Ni OLIVARES MD Where: [facility] [address] [place] [address]- You Need to Schedule the Following Appointments Follow Up with Ni OLIVARES MD, URL When: Where: [address] [address]- Medications What How Much When [...] By Mouth 2 times a day Contact prescribingphysician if questions or concerns Unchanged multivitamin (Vitamin [...] prescribing physician if q (more content not included)...Normal [facility] MemorialUrology Office/Clinic Noteon 77-27-8002Npqgcvi Office/Clinic NoteUrology Office/Clinic Note Chief Complaint 1 year follow [...] elevated 8.2 [2] volume isn't bad, he producedaround 2L, minimum goal is 2.5L but ideally [...] mm right kidney Discussed cont to monitor. Ptagreeable. Knows there is a risk of stone [...] Information CARLOS OLIVEROS, Ni P, URL [address] [place], [place] [id number]- Additional Instructions: 6 mos with PSA and [...] with voice recognition artificial intelligence software, specifically ThisLife, TheraCoat and or [employer]. Substitutions may have occurred due to the [...] Cystoscopic removal of u (more content not included)...UC HealthComment on above:Result Comment: Electronically Signed By: Ni OLIVARES MD P\.br\Date and Time Signed: 06/12/24 13:29 EST\.br\Electronically Co-Signed By: Shira Mauricio P\.br\Date and Time Co-Signed: 06/12/24 11:55 EST Office Visiton 96-99-6240Zdlsgg-up [id number] Victorino Smyth 1940 M Date Provider Department Center 05/21/2024 [facility] Family History Problem Relation Age of Onset No Known Problems Mother No Known Problems Father Family Status - Relation Status Age at Mother Father Level of Service:04779 [place] OFFICE/OUTPATIENT ESTABLISHED LOW MDM 20 [facility] OhioErythrocyte distribution width Auto (RBC) [Ratio]on 50-63-7928Fepqpushtky distribution width (RBC) [Ratio]12.9 %11.0-15.0 [facility] HospitalEstimated glomerular filtration rate (GFR) non- Americanon 08-53-6906JMZ/1.73 sq M.predicted among non-blacks MDRD (S/P/Bld) [Vol rate/Area]35 mL/min/{1.73_m2}>=60[facility] HospitalHematocrit Auto (Bld) [Volume fraction]on 26-59-2464Qsodhdjtnb (Bld) [Volume fraction]41.9 %42.0-54.0[facility] HospitalHemoglobin [Mass/volume] in Bloodon 57-72-9110Uiotshdniu (Bld) [Mass/Vol]14.0 g/dL14.0-18.0 [facility] HospitalIron binding capacity [Mass/volume] in Serum or Plasmaon 44-03-9512Voil binding capacity [Mass/Vol]279.0 ug/dL250.0-450.0 [facility] HospitalIron saturation [Mass Fraction] in Serum or Plasmaon 83-74-1227Gyah saturation [Mass fraction]36.2 %[facility] HospitalLaboratory - Chemistry and Chemistry - challengeon 12-14-2023 Albumin [Mass/Vol]3.3 g/dL3.4-5.0[facility] HospitalCalcium [Mass/Vol]8.5 mg/dL8.5-10.1FGreen Cross HospitalChloride [Moles/Vol] 106 mmol/S97-034XjlnesaxtHocking Valley Community HospitalCO2 [Moles/Vol]24.0 mmol/L 21.0-32.0[facility] HospitalCreatinine [Mass/Vol]1.84 mg/dL 0.70-1.30[facility] HospitalFerritin [Mass/Vol]111.0 ng/mL 26.0-388.0[facility] HospitalGFR/1.73 sq M.predicted MDRD (S/P/Bld) [Vol rate/Area]43 mL/min/{1.73_m2}>=60[facility] HospitalGlucose [Mass/Vol]155 mg/mD78-421DpwkbteiaHocking Valley Community HospitalIron [Mass/Vol]101.0 ug/dL65.0-175.0[facility] HospitalMagnesium [Mass/Vol]1.7 mg/dL1.8-2.4FGreen Cross HospitalPotassium [Moles/Vol] 4.6 mmol/L3.5-5.1FLouis Stokes Cleveland VA Medical Centerodium [Moles/Vol]140 mmol/L 136-145[facility] Community HospitalUrate [Mass/Vol]6.4 mg/dL3.5-7.2 [facility] HospitalUrea nitrogen [Mass/Vol]21.0 mg/dL7.0-18.0 [facility] HospitalUrea nitrogen/Creatinine [Mass ratio]11.4 mg/mg [facility] HospitalBilirubin Ql (U)NegativeNEGATIVEHocking Valley Community HospitalGlucose (U) [Mass/Vol]NegativeNEGATIVEHocking Valley Community HospitalKetones Ql (U)NegativeNEGATIVEHocking Valley Community HospitalpH (U)5.5 [pH]5.0-9.0Magruder Hospitalpecific gravity (U) [Rel density]1.0151.005-1.025[facility] HospitalUrobilinogen Qn (U)0.2 {Wil'U}/dL0.2-1.0[facility] HospitalLaboratory - Specimen informationon 64-18-8788Huubokxtxt (U)CLEARCLEARFGreen Cross HospitalColor (U)YELLOWYELLOWHocking Valley Community HospitalLaboratory - Urinalysison 66-24-6992Tjdpxfqii esterase Test strip Ql (U)NegativeNEGATIVE [facility] HospitalMucus Ql (Urine sed)NONE SEENNONE SEENHocking Valley Community HospitalNitrite Ql (U)NegativeNEGATIVEHocking Valley Community HospitalProtein (U) [Mass/Vol]10.9 mg/dL<=11.9[facility] Protein Ql (U)NegativeNEG/TRACEHocking Valley Community HospitalLeukocytes [#/volume] corrected for nucleated erythrocytes in Blood by Automated counon 03-90-6362KDG corrected for nucl RBC Auto (Bld) [#/Vol]6.2 10 3/uL4.0-11.0 [facility] HospitalH Auto (RBC) [Entitic mass]on 94-38-9638IOM (RBC) [Entitic mass]33.7 pg25.9-34.0[facility] HospitalMCHC Auto (RBC) [Mass/Vol]on 02-09-1976KDFC (RBC) [Mass/Vol]33.4 g/dL29.9-35.2FGreen Cross HospitalMCV Auto (RBC) [Entitic vol]on 22-74-9157LWU (RBC) [Entitic vol]101.0 fL80.0-94.0[facility] HospitalNo Panel Informationon 15-42-160945940137-Aizxsti Vitamin D Total66.1 ng/mLHocking Valley Community HospitalComment on above:<20 ng/mL Vit D butqllldv06-<30 ng/mL Vit D xhohvktxehnc39-038 ng/mL Vit D sufficient>100 ng/mL Potential Toxicity Parathyroid Hormone (Intact)50 pg/mT40-50PqsovfomgHocking Valley Community Hospital Comment on above:Performed at: - [facility] [id number] Director: Lee Bob PhD, Phone: [phone] Level 3.5 mg/dL2.6-4.7FGreen Cross HospitalUrine BacteriaNONE SEEN #/HPF NONE SEENHocking Valley Community HospitalUrine Occult BloodNegativeNEGATIVE [facility] HospitalUrine Other CastsNONE SEEN #/LPFNONE SEEN [facility] HospitalUrine Other CrystalsNone Seen #/HPFNone Seen [facility] HospitalUrine Random Fmswfxbcpn12.05 mg/dL20.00-300.00 [facility] HospitalUrine RBCNONE SEEN #/HPF0-2FGreen Cross HospitalUrine Squamous Epithelial CellsRARE #/LPFNONE/RAREHocking Valley Community HospitalUrine WBCNONE SEEN #/HPFNONE SEENHocking Valley Community HospitalPlatelet mean volume Auto (Bld) [Entitic vol]on 11-95-1865Wregqiyp mean volume (Bld) [Entitic vol]11.2 fL9.5-13.5FGreen Cross Hospital Platelets Auto (Bld) [#/Vol]on 95-60-8499Gccebjzkn (Bld) [#/Vol]168 10 3/uL 150-450H[facility] Community HospitalRBC Auto (Bld) [#/Vol]on 80-14-7138SQW (Bld) [#/Vol]4.15 10 6/uL4.70-6.10Magruder Hospitalerum or plasma anion gap determinationon 16-09-6973Ivkkj gap [Moles/Vol]14.6 mmol/L [facility] HospitalUrine protein/creatinine ratioon 12-14-2023 Protein/Creatinine (U) [Ratio]0.15[facility] Community HospitalLon 06-25-4853GEulnidwa: [id number] Received: 10/19/23 Status: [facility] Num: [id number] Spec Type: Surgical Subm Dr: NON STAFF Tissues: A Colon Biopsy (DESC POLYP AT 50 CM) Procedures: HE/2, Gross/Micro L4 Age/ Patient Sex Location Account Attending Physician SmythVictorino 83/M LABELL [id number] NON STAFF SPEC NUM: [id number] RECD: 10/19/23 STATUS: HIMANSHU WILLIAMSON NUM: [id number] HYUN: 10/18/[address]: EMELY STAFF ENTERED: 10/19/[address] [facility] [address]: Charito,Lab SPEC TYPE: Surgical DEPT: MIO [...] colon polyp at 50 cm CPT Codes 42706 Specimen: [id number] Received: 10/19/23 Status: HIMANSHU Williamson Num: [id number] Spec Type: Surgical Subm Dr: EMELY ORTIZ Tissues: A Colon Biopsy (DESC POLYP AT 50 CM) Procedures: HE/2, Gross/Micro L4 Patient: Victorino Smyth [id number] (Continued) Signed (signature on file) Ana Villegas MD 10/20/[address] [place] [address] Physician GroupCT ABDOMEN PELVIS W CONon 53-48-1457[place] [address] [place] Scan Report Signed Patient: VICTORINO SMYTH MR#: [id number] : 1940 Acct:[id number] Age/Sex: 83 / M ADM Date: 09/27/23 Loc: CT Attending Dr: Jennifer Driscoll D.O. Ordering Physician: Jennifer Driscoll D.O. Date of Service: 09/27/23 Procedure(s): CT abdomen pelvis w con Accession Number(s): [id number] cc: Jose Alfaro M.D. [place] [id number] Patient Name: VICTORINO SMYTH MRN: [id number] date: 1940 Sex: M Assigned Patient Location: CT Current Patient Location: CT Accession/Order Number: [id number] Exam Date: 09/27/2023 09:05 Report Date: 09/27/2023 16:05 At the request of: JENNIFER DRISCOLL Procedure: CT abdomen pelvis w con EXAMINATION: [...] tumor cannot be excluded. Electronically authenticated by: TESS FORD Date: 09/27/2023 16:05 Dictated By: Tess Ford M.D. Signed By: 09/27/23 1607 DD/ 1605 TD/TT: Library Aide:TBHRadiology, Radiologist, MD - 09/27/2023 [place] [address] CT Scan Report Signed Patient: VICTORINO SMYTH MR#: [id number] : 1940 Acct:[id number] Age/Sex: 83 / M ADM Date: 09/27/23 Loc: CT Attending Dr: Jennifer Driscoll D.O. Ordering Physician: Jennifer Driscoll D.O. Date of Service: 09/27/23 Procedure(s): CT abdomen pelvis w con Accession Number(s): [id number] cc: Jose Alfaro M.D. The [address] [address] Patient Name: VICTORINO SMYTH MRN: [id number] date: 1940 Sex: M Assigned Patient Location: CT Current Patient Location: CT Accession/Order Number: [id number] Exam Date: 09/27/2023 09:05 Report Date: 09/27/2023 16:05 At the request of: JENNIFER DRISCOLL Procedure: CT abdomen pelvis w con EXAMINATION: [...] tumor cannot be excluded. Electronically authenticated by: TESS FORD Date: 09/27/2023 16:05 Dictated By: Tess Ford M.D. Signed By: 09/27/23 1607 DD/ 1605 TD/TT: Library Aide: VIK HealthcareRadiology Study observation (narrative)VIK HealthcareCT ABDOMEN PELVIS W CONOrdered By: Radiologist Radiology on 09-79-8665G[employer] Work Phone: ecg 12-LEADon 13-03-8278Sti[place] [address] Electrocardiograph Report Signed Patient: VICTORINO SMYTH MR#: [id number] : 1940 Acct:[id number] Age/Sex: 82 / M ADM Date: 07/29/23 Loc: [place] 230-[address]: Jose Alfaro M.D. Ordering Physician: Tesha Dowell Date of Service: 07/29/23 Procedure(s): ECG 12 lead Accession Number(s): [id number] cc: The [facility] Test Date: 2023-07-29 Pat Name: VICTORINO SMYTH Department: Room: - Gender: Male District Resource Officer: : 1940 Requested By: JOSE ALFARO Order Number: [id number] Reading MD: JOSE ALFARO Measurements Intervals [place] Rate: 82 P: 6 WV: 170 QRS: 27 QRSD: 88 T: 51 QT: 352 QTc: 391 Interpretive Statements 1100 Sinus rhythm Electronically Signed On 2023 5:55:01 EST by JOSE ALFARO Dictated By: Jose Alfaro M.D. Signed By: 07/31/23 0555 DD/ 1446 TD/TT: Library Aide:Nakita Alvarez, - 2023 The [place] [id number] Electrocardiograph Report Signed Patient: VICTORINO SMYTH MR#: [id number] : 1940 Acct:[id number] Age/Sex: 82 / M ADM Date: 07/29/23 Loc: MS 230-[address]: Jose Alfaro M.D. Ordering Physician: Tesha Dowell Date of Service: 07/29/23 Procedure(s): ECG 12 lead Accession Number(s): [id number] cc: The [facility] Test Date: 2023-07-29 Pat Name: VICTORINO SMYTH Department: Room: - Gender: Male District Resource Officer: : 1940 Requested By: JOSE ALFARO Order Number: [id number] Reading MD: JOSE ALFARO Measurements Intervals [place] Rate: 82 P: 6 WV: 170 QRS: 27 QRSD: 88 T: 51 QT: 352 QTc: 391 Interpretive Statements 1100 Sinus rhythm Electronically Signed On 2023 5:55:01 EST by JOSE ALFARO Dictated By: Jose Alfaro M.D. Signed By: 07/31/23 0555 DD/ 1446 TD/TT: Library Aide: VIK HealthcareECG 12-LEADOrdered By: Radiologist Radiology on 75-76-4839YK[facility] Work Phone: ECG 12-LEADon 33-36-8700Bdesbopyu Study observation (narrative)VIK HealthcareCalcium [Mass/volume] in Serum or PlasmaOrdered By: Ni Olivares on 80-78-2776Bydhuoj [Mass/Vol]8.8 mg/dLNormal8.6-10.3FGreen Cross HospitalComment on above:Performed By: #### URIC, CA, CREAT, BUN, PTH, LYTES #### [facility] [address] [place] [address] USACarbon dioxide, total [Moles/volume] in Serum or Plasma Ordered By: Ni Olivares on 58-48-9471YH9 [Moles/Vol]24.0 mmol/DMuiubn64.0-31.0 [facility] HospitalComment on above:Performed By: #### URIC, CA, CREAT, BUN, PTH, LYTES #### [facility] [address] [place] [address] USAChloride [Moles/volume] in Serum or PlasmaOrdered By: Ni Olviares on 89-94-4393Fponsukz [Moles/Vol]107 mmol/POfbyia64-368HumgoicclHocking Valley Community HospitalComment on above:Performed By: #### URIC, CA, CREAT, BUN, PTH, LYTES #### [facility] [address] [place] [address] USACreatinineon 43-24-1395TQS/1.73 sq M.predicted MDRD (S/P/Bld) [Vol rate/Area]32.151 mL/min/{1.73_m2}NormalThe [facility] Physician GroupComment on above:Performed By: #### URIC, CA, CREAT, BUN, PTH, LYTES #### [facility] [address] [place] [id number] USACreatinine [Mass/volume] in Serum or PlasmaOrdered By: Ni Olivares on 26-19-0151Pwldlozudh [Mass/Vol]2.05 mg/dLHigh0.70-1.30[facility] HospitalComment on above:Performed By: #### URIC, CA, CREAT, BUN, PTH, LYTES #### [facility] [address] [place], [place] [address] USANo Panel InformationOrdered By: Ni Olivares on 07-02-2023 Estimated GFR (CKD-EPI)32.151 mL/MinHocking Valley Community HospitalPharmacy Creatinine Clearance (ChemN/[facility] HospitalParathyrin.intact [Mass/volume] in Serum or PlasmaOrdered By: Ni Olivares on 07-02-2023 Parathyrin.intact [Mass/Vol]55.4 pg/xV28-02AtzroikkxHocking Valley Community Hospital Parathyroid Hormone Intacton 76-01-3774Ihyodkfcnow Hormone Qtcbrv70.4 pg/mL Scafga67-94Ytg [place] Physician GroupComment on above:Result Comment: PERFORMED BY: [place] [address] PATHOLOGIST LATENT FINGERPRINT EXAMINER DIANDRA LACY M.D.Performed By: #### URIC, CA, CREAT, BUN, PTH, LYTES #### [facility] [address] [place], [place] [address] USAPotassium [Moles/volume] in Serum or PlasmaOrdered By: Ni Olivares on 75-33-6649Awcbdfdoy [Moles/Vol]5.0 mmol/LNormal3.5-5.1FGreen Cross HospitalComment on above:Performed By: #### URIC, CA, CREAT, BUN, PTH, LYTES #### [facility] [address] [place] [id number] USASerum or plasma anion gap determinationOrdered By: Ni Olivares on 39-35-1207Hcwrb gap [Moles/Vol]12.0 mmol/LNormal6.0-15.0[facility] HospitalComment on above:Performed By: #### URIC, CA, CREAT, BUN, PTH, LYTES #### [place] [address] USASodium [Moles/volume] in Serum or PlasmaOrdered By: Ni Olivares on 95-12-9011Iltcja [Moles/Vol]138 mmol/ILydvcr247-458XcidiyjnrHocking Valley Community HospitalComment on above:Performed By: #### URIC, CA, CREAT, BUN, PTH, LYTES #### [place] [id number] USAUrate [Mass/volume] in Serum or PlasmaOrdered By: Ni Olivares on 39-28-4946Aldit [Mass/Vol]8.2 mg/dLHigh4.4-7.6FGreen Cross HospitalComment on above:Result Comment: PERFORMED BY: [place] [address] PATHOLOGIST LATENT FINGERPRINT EXAMINER DIANDRA LACY M.D.Performed By: #### URIC, CA, CREAT, BUN, PTH, LYTES #### [place] [id number] USAUrea nitrogen [Mass/volume] in Serum or PlasmaOrdered By: Ni Olivares on 23-45-2222Jwje nitrogen [Mass/Vol]31 mg/dLHigh7-25H[facility] Community HospitalComment on above:Performed By: #### URIC, CA, CREAT, BUN, PTH, LYTES #### [place] [address] USAPSA Total (Not a Screen)on 23-41-6940BMJ Total (Not a Screen)4.730 ng/mLHigh0.000-4.000The [facility] Physician GroupComment on above: Result Comment: Serial tumor marker results determined by assays using different manufacturers or methods may not be comparable. [facility] Laboratory plasma center nurse and method: Paymo DXI, CHEMILUMINESCENT IMMUNOASSAY. PERFORMED BY: [place] [address] PATHOLOGIST LATENT FINGERPRINT EXAMINER DIANDRA LACY M.D.Performed By: #### PSATOTAL #### [place] [address] USAProstate specific Ag [Mass/volume] in Serum or Plasma Ordered By: Ni Olivares on 48-75-7026Hvxmhjgk specific Ag [Mass/Vol]4.730 ng/mL 0.000-4.000[facility] Community HospitalComment on above:Serial tumor marker results determined by assays using different manufacturers or methods may not be comparable.[facility] Laboratory plasma center nurse and method:DacudaEL DXI, CHEMILUMINESCENT IMMUNOASSAY.US renal BIon 36-23-3375VQ renal [facility] [address] [place] [address] Ultrasound Report Signed Patient: Victorino Smyth MR#: [id number] : 1940 Acct:[id number] Age/Sex: 82 / M ADM Date: 06/16/23 Loc: Room: Type: [facility] Attending Dr: Ni Olivares MD Ordering Provider: [...] Rehan Fuentes M.D.06/16/2023 4:02 PM Dictation Location: [place] [address] Tech: Sue Chiu Transcribed By: [facility] 06/16/23 1602 Dictated By: Rehan Fuentes DO 06/16/23 1559 Signed By: 06/16/23 1602[facility] Physician GroupPSA, FREE AND TOTAL RATIOon 11-09-2022% Free PSA11.3 %NormalThe [facility] HospitalComment on above:Result Comment: The table below lists the probability [...] free PSA for any other population of men.Performed By: #### PSAFREE #### [facility] [address] [place] [address] Dr. Alicia Pennington specific Ag [Mass/Vol]4.6 ng/mLCritically high0.0-4.0The [facility] HospitalComment on above:Result Comment: Mechanology ECLIA methodology. . According to the [employer], Serum PSA should decrease and [...] of the presence or absence of malignant disease.Performed By: #### PSAFREE #### [facility] [address] [place] [address] Dr. Alicia Hernandez, Free0.52 ng/mLNormalN/AThe [facility] HospitalComment on above:Result Comment: Brenda ECLIA methodology.Performed By: #### PSAFREE #### [facility] [address] [place] [address] Dr. Alicia PatelINSULINon 73-91-7082Opfkfos54.5 uIU/mLNormal2.6-24.9The [facility] HospitalComment on above:Performed By: #### TSH, LIPID, T4, FT3, CMP #### [facility] [address] [place] [address] Dr. Alicia Boswell AUTO DIFFon 45-41-3013VUVM #0.0 103/ulNormal0.0-0.1The [facility] HospitalComment on above:Performed By: #### CBC #### [facility] [address] [place] [address] Dr. Alicia PatelBasophils/100 WBC (Bld)0.4 %Normal0.2-2.0[facility] Comment on above:Performed By: #### CBC #### [facility] [address] [place] [address] Dr. Alicia Coats #0.2 103/ulNormal0.0-0.7The [facility] HospitalComment on above: Performed By: #### CBC #### [facility] [address] [place] [address] Dr. Alicia Dunnosinophils/100 WBC (Bld)4.6 %Normal0.9-7.0[facility] Comment on above:Performed By: #### CBC #### [facility] [address] [place] [address] Dr. Alicia Dunnrythrocyte distribution width (RBC) [Ratio]13.2 %Yhwidw03.0-15.0 [facility] HospitalComment on above:Performed By: #### CBC #### [facility] [address] [place] [address] Dr. Alicia PatelHematocrit (Bld) [Volume fraction]34.6 %Critically low42.0-54.0 The [facility] HospitalComment on above:Performed By: #### CBC #### [facility] [address] [place] [address] Dr. Alicia PatelHemoglobin (Bld) [Mass/Vol]11.4 g/dLCritically low14.0-18.0The [facility] HospitalComment on above:Performed By: #### CBC #### [facility] [address] [place] [address] Dr. Alicia Bell #0.03 10e3/ulNormal0.00-0.03The [facility] HospitalComment on above:Performed By: #### CBC #### [facility] [address] [place] [address] Dr. Alicia Bell %0.6 %Critically high0.0-0.5The [facility] HospitalComment on above:Performed By: #### CBC #### [facility] [address] [place] [address] Dr. Alicia Magallon #0.9 103/ulCritically low1.2-3.8The [facility] Comment on above:Performed By: #### CBC #### [facility] [address] [place] [address] Dr. Alicia Gonzaleshocytes/100 WBC (Bld)16.3 %Critically low20.5-60.0The [facility] HospitalComment on above:Performed By: #### CBC #### [facility] [address] [place] [address] Dr. Alicia KincaidUAL DIFF REQNONormalThe [facility] HospitalComment on above: Performed By: #### CBC #### [facility] [address] [place] [address] Dr. Alicia Nixon (RBC) [Entitic mass]32.9 tmWttemn12.9-34.0The [facility] HospitalComment on above:Performed By: #### CBC #### [facility] [address] [place] [address] Dr. Alicia Nixon (RBC) [Mass/Vol]32.9 g/eHAzcprp14.9-35.2The [facility] HospitalComment on above:Performed By: #### CBC #### [facility] [address] [place] [address] Dr. Alicia NixonV (RBC) [Entitic vol]99.7 fLCritically high80.0-94.0The [facility] HospitalComment on above:Performed By: #### CBC #### [facility] [address] [place] [address] Dr. Alicia Merchant #0.6 103/ulNormal0.3-0.8The [facility] HospitalComment on above:Performed By: #### CBC #### [facility] [address] [place] [address] Dr. Alicia Carpenterocytes/100 WBC (Bld)12.0 %Normal1.7-12.0The [facility] Comment on above:Performed By: #### CBC #### [facility] [address] [place] [address] Dr. Alicia Bright #3.5 103/ulNormal1.4-6.5The [facility] HospitalComment on above:Performed By: #### CBC #### [facility] [address] [place] [address] Dr. Alicia Kapoorutrophils/100 WBC (Bld)66.1 %Dcjvwg38.0-75.0The [facility] HospitalComment on above:Performed By: #### CBC #### [facility] [address] [place] [address] Dr. Alicia Marks mean volume (Bld) [Entitic vol]10.1 fLNormal9.5-13.5The [facility] HospitalComment on above:Performed By: #### CBC #### [facility] [address] [place] [address] Dr. Alicia PatelPLT168 103/zmQosmxd609-342Cpf [facility] HospitalComment on above: Performed By: #### CBC #### [facility] [address] [place] [address] Dr. Alicia PatelRBC3.47 106/ulCritically low4.70-6.10The [facility] HospitalComment on above:Performed By: #### CBC #### [facility] [address] [place] [address] Dr. Alicia PatelWBC5.2 103/ulNormal4.0-11.0The [facility] on above: Performed By: #### CBC #### [facility] [address] [place] [address] Dr. Alicia PatelFREE T3on 38-69-1948ROLH T32.78 pg/mlLNormal2.18-3.98The [facility] HospitalComveterans affairs [facility] on above:Performed By: #### URTPCR #### [facility] [address] [place] [address] Dr. Alicia PatelGLYCOHEMOGLOBIN A1Con 15-01-3671GYF RECOMMENDATIONSEE BELOWNoMetroHealth Main Campus Medical CenterComveterans affairs [facility] on above:Result Comment: ADA RECOMMENDED LIMIT 4.0 - 6.0 ADA THERAPEUTIC TARGET < 7.0 ACTION SUGGESTED > 7.0Performed By: #### TSH, LIPID, T4, FT3, CMP #### [facility] [address] [place] [address] Dr. Alicia PatelGlucose [Mass/Vol]120 mg/dLNoToledo HospitalComveterans affairs [facility] on above:Performed By: #### TSH, LIPID, T4, FT3, CMP #### [facility] [address] [place] [address] Dr. Alicia PatelHbA1c (Bld) [Mass fraction]5.8 %Normal4.5-6.2The [facility] on above:Performed By: #### TSH, LIPID, T4, FT3, CMP #### [facility] [address] [place] [address] Dr. Alicia PatelLIPID PROFILEon 98-50-3862NLEM-HDL RATIO NORMSEE [facility] HospitalComveterans affairs [facility] on above:Result Comment: 3.3 - 4.4 LOW RISK 4.4 - 7.1 AVERAGE RISK 7.1 - 11.0 MODERATE RISK >11.0 HIGH RISKPerformed By: #### URTPCR #### [facility] [address] [place] [address] Dr. Alicia PatelCholesterol [Mass/Vol]107 mg/dLNormal<=200The [facility] Comment on above:Performed By: #### URTPCR #### [facility] [address] [place] [address] [address] Alicia PatelCholesterol in HDL [Mass/Vol]34 mg/dLCritically hbh48-95CqoMercy Health – The Jewish HospitalComment on above:Performed By: #### URTPCR #### [facility] [address] [place] [address] [address] Alicia PatelCholesterol in LDL [Mass/Vol]58.8 mg/dLUK HealthcareComment on above:Performed By: #### URTPCR #### [facility] [address] [place] [address] Dr. Alicia Toro.total/Cholesterol in HDL [Mass ratio]3.1 {ratio} NormalMercy Health – The Jewish HospitalComment on above:Performed By: #### URTPCR #### [facility] [address] [place] [address] Dr. Alicia Drew NORMAL> or = 60 mg/dl - LOW CARDIOVASCULAR RISK <40 mg/dl - HIGH CARDIOVASCULAR RISKUK HealthcareComment on above:Performed By: #### URTPCR #### [facility] [address] [place] [address] Dr. Alicia Do CALC NORMALSEE BELOWUK HealthcareComment on above:Result Comment: <100 mg/dl OPTIMAL 100 - 129 mg/dl NEAR OR ABOVE OPTIMAL 130 - 159 mg/dl BORDERLINE HIGH 160 - 189 mg/dl HIGH >190 mg/dl VERY HIGH Performed By: #### URTPCR #### [facility] [address] [place] [address] Dr. Alicia PatelTriglyceride [Mass/Vol]71 mg/dLNormal<=150[facility] Comment on above:Performed By: #### URTPCR #### [facility] [address] [address] Dr. Alicia PatelVLDL CALC14.2 mg/dLNoToledo HospitalComment on above: Performed By: #### URTPCR #### [facility] [address] [address] Dr. Alicia Rene 14(COMP METB)on [id number] [Mass/Vol]3.4 g/dLNormal 3.4-5.0The [facility] HospitalComment on above:Performed By: #### TSH, LIPID, T4, FT3, CMP #### [facility] [address] [address] Dr. Alicia PatelAlbumin/Globulin [Mass ratio]0.9 {ratio}NormalThe [facility] HospitalComment on above:Performed By: #### TSH, LIPID, T4, FT3, CMP #### [facility] [address] [address] Dr. Alicia Estrella [Catalytic activity/Vol]75 U/OPblhgg42-487Mfi [facility] HospitalComment on above:Performed By: #### TSH, LIPID, T4, FT3, CMP #### [facility] [address] [place] [address] Dr. Alicia Mejia [Catalytic activity/Vol]31 U/GSpunts75-54Afr [facility] HospitalComment on above:Performed By: #### TSH, LIPID, T4, FT3, CMP #### [facility] [address] [place] [address] Dr. Alicia Galvan gap [Moles/Vol]14.4 mmol/LNormalThe [facility] Comment on above:Performed By: #### TSH, LIPID, T4, FT3, CMP #### [facility] [address] [place] [address] Dr. Alicia Hernandez [Catalytic activity/Vol]23 U/BWqreix96-31Xug [facility] HospitalComment on above:Performed By: #### TSH, LIPID, T4, FT3, CMP #### [facility] [address] [place] [address] Dr. Alicia Lopezirubin [Mass/Vol]0.5 mg/dLNormal0.2-1.0The [facility] Comment on above:Performed By: #### TSH, LIPID, T4, FT3, CMP #### [facility] [address] [place] [address] Dr. Alicia PatelCalcium [Mass/Vol]8.8 mg/dLNormal8.5-10.1The [facility] Comment on above:Performed By: #### TSH, LIPID, T4, FT3, CMP #### [facility] [address] [place] [address] Dr. Alicia PatelChloride [Moles/Vol]110 mmol/LCritically syrz79-356Uvy [facility] HospitalComment on above:Performed By: #### TSH, LIPID, T4, FT3, CMP #### [facility] [address] [place] [address] Dr. Alicia PatelCO2 [Moles/Vol]24.2 mmol/FBlvhvx78.0-32.0The [facility] Comment on above:Performed By: #### TSH, LIPID, T4, FT3, CMP #### [facility] [address] [place] [address] Dr. Alicia PatelCreatinine [Mass/Vol]2.41 mg/dLCritically high0.70-1.30The [facility] HospitalComment on above:Performed By: #### TSH, LIPID, T4, FT3, CMP #### [facility] [address] [place] [address] Dr. Alicia DunnGFR-AF OKGQXGCG26 mL/min/1.73q0Pgkegsbmbp low>=60The [facility] HospitalComment on above:Performed By: #### TSH, LIPID, T4, FT3, CMP #### [facility] [address] [place] [address] Dr. Alicia DunnGFR-NON AF NWEXKMND92 mL/min/1.85m0Tqijcjbzhf low>=60The [facility] HospitalComment on above:Performed By: #### TSH, LIPID, T4, FT3, CMP #### [facility] [address] [place] [address] Dr. Alicia PatelGlobulin (S) [Mass/Vol]3.6 g/dLNormalThe [facility] HospitalComment on above:Performed By: #### TSH, LIPID, T4, FT3, CMP #### [facility] [address] [place] [address] Dr. Alicia PatelGlucose [Mass/Vol]72 mg/dLCritically nxf41-236Cpi [facility] HospitalComment on above:Performed By: #### TSH, LIPID, T4, FT3, CMP #### [facility] [address] [place] [address] Dr. Alicia PatelPotassium [Moles/Vol]4.6 mmol/LNormal3.5-5.1The [facility] Comment on above:Performed By: #### TSH, LIPID, T4, FT3, CMP #### [facility] [address] [place] [address] Dr. Alicia PatelProtein [Mass/Vol]7.0 g/dLNormal6.4-8.2[facility] Comment on above:Performed By: #### TSH, LIPID, T4, FT3, CMP #### [facility] [address] [place] [address] Dr. Alicia PatelSodium [Moles/Vol]144 mmol/POutvpy322-476Ohi [facility] Comment on above:Performed By: #### TSH, LIPID, T4, FT3, CMP #### [facility] [address] [place] [address] Dr. Alicia PatelUrea nitrogen [Mass/Vol]32.0 mg/dLCritically high7.0-18.0The [facility] HospitalComment on above:Performed By: #### TSH, LIPID, T4, FT3, CMP #### [facility] [address] [place] [address] Dr. Alicia Nguyễn nitrogen/Creatinine [Mass ratio]13.3 mg/mgNormalThe [facility] HospitalComment on above:Performed By: #### TSH, LIPID, T4, FT3, CMP #### [facility] [address] [place] [address] Dr. Alicia Solis4on 42-71-9911H9 [Mass/Vol]7.90 ug/dLNormal4.50-12.10The [facility] HospitalComment on above:Performed By: #### TSH, LIPID, T4, FT3, CMP #### [facility] [address] [address] [address] Alicia Pinto 39-24-3126PGH5.263 uIU/mLCritically low0.358-3.740The [facility] HospitalComment on above:Performed By: #### TSH, LIPID, T4, FT3, CMP #### [facility] [address] [address] [address] Alicia PatelURIC ACID SERUMon 60-23-4320Vpehh [Mass/Vol]7.3 mg/dLCritically high3.5-7.2The [facility] HospitalComment on above:Performed By: #### TSH, LIPID, T4, FT3, CMP #### [facility] [address] [address] [address] Vargas ChangECHOCARDIO M/2D COMPLETEon 28-22-5983TQEEHPUUSU M/2D COMPLETE Patient: VICTORINO SMYTH Exam Date: 10/26/2022 : 1940 Gender:M Ordering : IRIS CORONEL Admission #: [id number] Family : DR JOSE ALFARO . Order #: [id number] CLICK HERE TO VIEW EXAM ECHOCARDIOGRAM REPORT [...] by: Ksenia Glasgow M.D. on 10/28/2022 at 13:02[facility] HealthcareXR KUB 1 VIEWon 84-27-7077JH KUB 1 VIEWEXAMINATION: XR KUB 1 VIEW HISTORY: Lower urinary [...] Electronically authenticated by: TYLER MONSIVAIS Date: 2022-10-22 09:12[facility] HealthcareUS KIDNEYSon [id number] KIDNEYSEXAMINATION: US KIDNEYS HISTORY: Kidney stone COMPARISON: Ultrasound kidneys 09/01/2022, [...] Electronically authenticated by: TESS FORD Date: 2022-10-18 07:04UK HealthcareBNPon 55-55-4576Dkomkwfmana peptide B (Bld) [Mass/Vol]300.0 pg/mLNormal<=1,800.0[facility] HospitalComment on above:Performed By: #### TSH, LIPID, T4, FT3, CMP #### [facility] [address] [place] [address] Dr. Alicia Boswell AUTO DIFFon 12-53-7897TXYP #0.0 103/ulNormal0.0-0.1The [facility] HospitalComment on above:Performed By: #### TSH, LIPID, T4, FT3, CMP #### [facility] [address] [place] [address] Dr. Alicia PatelBasophils/100 WBC (Bld)0.6 %Normal0.2-2.0The [facility] Comment on above:Performed By: #### TSH, LIPID, T4, FT3, CMP #### [facility] [address] [place] [address] Dr. Alicia Coats #0.2 103/ulNormal0.0-0.7The [facility] HospitalComment on above: Performed By: #### TSH, LIPID, T4, FT3, CMP #### [facility] [address] [place] [address] Dr. Alicia Dunnosinophils/100 WBC (Bld)4.6 %Normal0.9-7.0The [facility] Comment on above:Performed By: #### TSH, LIPID, T4, FT3, CMP #### [facility] [address] [place] [address] Dr. Alicia Dunnrythrocyte distribution width (RBC) [Ratio]14.2 %Nkmysk37.0-15.0 The [facility] HospitalComment on above:Performed By: #### TSH, LIPID, T4, FT3, CMP #### [facility] [address] [place] [address] Dr. Alicia PatelHematocrit (Bld) [Volume fraction]36.1 %Critically low42.0-54.0 The [facility] HospitalComment on above:Performed By: #### TSH, LIPID, T4, FT3, CMP #### [facility] [address] [place] [address] Dr. Alicia PatelHemoglobin (Bld) [Mass/Vol]11.8 g/dLCritically low14.0-18.0The [facility] HospitalComment on above:Performed By: #### TSH, LIPID, T4, FT3, CMP #### [facility] [address] [place] [address] Dr. Alicia Bell #0.03 10e3/ulNormal0.00-0.03The [facility] HospitalComment on above:Performed By: #### TSH, LIPID, T4, FT3, CMP #### [facility] [address] [place] [address] Dr. Alicia Bell %0.6 %Critically high0.0-0.5The [facility] HospitalComment on above:Performed By: #### TSH, LIPID, T4, FT3, CMP #### [facility] [address] [place] [address] Dr. Alicia Magallon #1.1 103/ulCritically low1.2-3.8The [facility] Comment on above:Performed By: #### TSH, LIPID, T4, FT3, CMP #### [facility] [address] [place] [address] Dr. Alicia Gonzaleshocytes/100 WBC (Bld)22.6 %Xvqgtu46.5-60.0The [facility] HospitalComment on above:Performed By: #### TSH, LIPID, T4, FT3, CMP #### [facility] [address] [place] [address] Dr. Alicia KincaidUAL DIFF REQNONormalThe [facility] HospitalComment on above: Performed By: #### TSH, LIPID, T4, FT3, CMP #### [facility] [address] [place] [address] Dr. Alicia Nixon (RBC) [Entitic mass]33.2 fsYpuknb62.9-34.0The [facility] HospitalComment on above:Performed By: #### TSH, LIPID, T4, FT3, CMP #### [facility] [address] [place] [address] Dr. Alicia Nixon (RBC) [Mass/Vol]32.7 g/hQMoukrw37.9-35.2The [facility] HospitalComment on above:Performed By: #### TSH, LIPID, T4, FT3, CMP #### [facility] [address] [place] [address] Dr. Alicia Villanueva (RBC) [Entitic vol]101.7 fLCritically high80.0-94.0The [facility] HospitalComment on above:Performed By: #### TSH, LIPID, T4, FT3, CMP #### [facility] [address] [place] [address] Dr. Alicia Merchant #0.7 103/ulNormal0.3-0.8The [facility] HospitalComment on above:Performed By: #### TSH, LIPID, T4, FT3, CMP #### [facility] [address] [place] [address] Dr. Alicia Carpenterocytes/100 WBC (Bld)13.8 %Critically high1.7-12.0The [facility] HospitalComveterans affairs [facility] on above:Performed By: #### TSH, LIPID, T4, FT3, CMP #### [facility] [address] [place] [address] Dr. Alicia Bright #2.9 103/ulNormal1.4-6.5The [facility] on above:Performed By: #### TSH, LIPID, T4, FT3, CMP #### [facility] [address] [place] [address] Dr. Alicia Kapoorutrophils/100 WBC (Bld)57.8 %Boytng47.0-75.0The [facility] on above:Performed By: #### TSH, LIPID, T4, FT3, CMP #### [facility] [address] [place] [address] Dr. Alicia Marks mean volume (Bld) [Entitic vol]10.1 fLNormal9.5-13.5The [facility] HospitalComment on above:Performed By: #### TSH, LIPID, T4, FT3, CMP #### [facility] [address] [place] [address] Dr. Alicia PatelPLT160 103/giRmuika302-020Lke [facility] HospitalComment on above: Performed By: #### TSH, LIPID, T4, FT3, CMP #### [facility] [address] [place] [address] Dr. Alicia PatelRBC3.55 106/ulCritically low4.70-6.10The [facility] HospitalComment on above:Performed By: #### TSH, LIPID, T4, FT3, CMP #### [facility] [address] [place] [address] Dr. Alicia PatelWBC5.0 103/ulNormal4.0-11.0The [facility] HospitalComment on above: Performed By: #### TSH, LIPID, T4, FT3, CMP #### [facility] [address] [place] [address] Dr. Alicia PatelPROF CHEM 8 (BAS METB)on 93-87-8158Cerog gap [Moles/Vol]13.9 mmol/LNormalThe [facility] HospitalComment on above:Performed By: #### TSH, LIPID, T4, FT3, CMP #### [facility] [address] [place] [address] Dr. Alicia PatelCalcium [Mass/Vol]8.3 mg/dLCritically low8.5-10.1The [facility] HospitalComment on above:Performed By: #### TSH, LIPID, T4, FT3, CMP #### [facility] [address] [place] [address] Dr. Alicia PatelChloride [Moles/Vol]108 mmol/LCritically vyip72-316Kmb [facility] HospitalComment on above:Performed By: #### TSH, LIPID, T4, FT3, CMP #### [facility] [address] [place] [address] Dr. Alicia PatelCO2 [Moles/Vol]23.5 mmol/DTtrrni10.0-32.0The [facility] Comment on above:Performed By: #### TSH, LIPID, T4, FT3, CMP #### [facility] [address] [place] [address] Dr. Alicia PatelCreatinine [Mass/Vol]2.41 mg/dLCritically high0.70-1.30The [facility] HospitalComment on above:Performed By: #### TSH, LIPID, T4, FT3, CMP #### [facility] [address] [place] [address] Dr. Alicia DunnGFR-AF MGAYMYWL91 mL/min/1.80i3Ndeqntlsjf low>=60The [facility] HospitalComment on above:Performed By: #### TSH, LIPID, T4, FT3, CMP #### [facility] [address] [place] [address] Dr. Alicia DunnGFR-NON AF YPKQPFCY65 mL/min/1.45m3Ixsyprbexj low>=60The [facility] HospitalComment on above:Performed By: #### TSH, LIPID, T4, FT3, CMP #### [facility] [address] [place] [address] Dr. Alicia PatelGlucose [Mass/Vol]74 mg/gQGeurkg35-408Uig[facility] Comment on above:Performed By: #### TSH, LIPID, T4, FT3, CMP #### [facility] [address] [place] [address] Dr. Alicia PatelPotassium [Moles/Vol]4.4 mmol/LNormal3.5-5.1[facility] Comment on above:Performed By: #### TSH, LIPID, T4, FT3, CMP #### [facility] [address] [place] [address] Dr. Alicia PatelSodium [Moles/Vol]141 mmol/TQiqklh920-396UquMer[facility] Health [facility] Comment on above:Performed By: #### TSH, LIPID, T4, FT3, CMP #### [facility] [address] [place] [address] Dr. Alicia PaetlUrea nitrogen [Mass/Vol]36.0 mg/dLCritically high7.0-18.0The [facility] HospitalComment on above:Performed By: #### TSH, LIPID, T4, FT3, CMP #### [facility] [address] [place] [address] Dr. Alicia PatelUrea nitrogen/Creatinine [Mass ratio]14.9 mg/mgNormalThe [facility] HospitalComment on above:Performed By: #### TSH, LIPID, T4, FT3, CMP #### [facility] [address] [place] [address] Dr. Alicia Le, HIGH SENSITIVITYon 87-92-3728OLMHAK8.6 pg/mLNormal 4.0-76.1The [facility] HospitalComment on above:Result Comment: CUT-OFF POINTS HAVE BEEN ESTABLISHED BASED ON THE FOURTH UNIVERSAL DEFINITIONS OF MYOCARDIAL INFARCTION. THE UPPER REFERENCE LIMIT (URL) OF TROPONIN, DEFINED THE 99TH PERCENTILE OF cTnI DISTRIBUTION IN A REFERENCE POPULATION, HAS BEEN CONFIRMED THE DECISION THRESHOLD FOR [place] DIAGNOSIS.Performed By: #### TSH, LIPID, T4, FT3, CMP #### [facility] [address] [place] [address] Dr. Alicia PatelCHEMISTRYOrdered By: Lab ROPUser on 76-42-7701Nuhacuc [Mass/Vol] 101 mg/mOHljw31 - 99 mg/dLOKLAHOMA CITY VETERANS ADMINIST[facility] [place] POC SubsectionComment on above:Result Comment: Notified RN/MDPOC Device [id number] Interpretation CodeOKLAHOMA CITY VETERANS [facility]MINIST[facility] [place] POC SubsectionPOC User [id number] Interpretation CodeOKLAHOMA CITY VETERANS [facility] [place] POC SubsectionPOC UsernameFRASHER, CYNTHIAInvalid Interpretation CodeOKLAHOMA CITY VETER[facility] [place] POC SubsectionPTH INTACT on 11-49-0314TSZ, Qjpvcb48 pg/cHHlfong98-48Ujc [facility] HospitalComment on above:Performed By: #### TSH, LIPID, T4, FT3, CMP #### [facility] [address] [place] [address] Dr. Alicia PatelHEMOGRAM AND PLATELon 03-95-7709Qnmpaikwet (Bld) [Volume fraction]32.9 %Critically low42.0-54.0The [facility] HospitalComment on above: Performed By: #### TSH, LIPID, T4, FT3, CMP #### [facility] [address] [place] [address] Dr. Yilan ChangHemoglobin (Bld) [Mass/Vol]10.9 g/dLCritically low14.0-18.0The [facility] HospitalComment on above:Performed By: #### TSH, LIPID, T4, FT3, CMP #### [facility] [address] [place] [address] Dr. Alicia Nixon (RBC) [Entitic mass]32.6 rhDfeias67.9-34.0The [facility] HospitalComment on above:Performed By: #### TSH, LIPID, T4, FT3, CMP #### [facility] [address] [place] [address] Dr. Alicia PatelMO[facility] (RBC) [Mass/Vol]33.1 g/oADcjhgp90.9-35.2The [facility] HospitalComment on above:Performed By: #### TSH, LIPID, T4, FT3, CMP #### [facility] [address] [place] [address] Dr. Alicia NixonV (RBC) [Entitic vol]98.5 fLCritically high80.0-94.0The [facility] HospitalComment on above:Performed By: #### TSH, LIPID, T4, FT3, CMP #### [facility] [address] [place] [address] Dr. Alicia PatelPLT145 103/ulCritically atz607-779Xzg [facility] HospitalComment on above:Performed By: #### TSH, LIPID, T4, FT3, CMP #### [facility] [address] [place] [address] Dr. Alicia PatelRBC3.34 106/ulCritically low4.70-6.10The [facility] HospitalComment on above:Performed By: #### TSH, LIPID, T4, FT3, CMP #### [facility] [address] [place] [address] Dr. Alicia PatelWBC5.1 103/ulNormal4.0-11.0The [facility] HospitalComment on above: Performed By: #### TSH, LIPID, T4, FT3, CMP #### [facility] [address] [place] [address] Dr. Alicia PatelMAGNESIUMon 73-57-4827Lbnyiqiqv [Mass/Vol]1.5 mg/dLCritically low 1.8-2.4The [facility] HospitalComment on above:Performed By: #### TSH, LIPID, T4, FT3, CMP #### [facility] [address] [place] [address] Dr. Alicia PatelRENAL FUNCTION PANELon 46-66-6722Msrlayk [Mass/Vol]3.5 g/dLNormal 3.4-5.0The [facility] HospitalComment on above:Performed By: #### URTPCR #### [facility] [address] [place] [address] Dr. Alicia PatelCalcium [Mass/Vol]8.4 mg/dLCritically low8.5-10.1The [facility] HospitalComment on above:Performed By: #### URTPCR #### [facility] [address] [place] [address] Dr. Alicia PatelChloride [Moles/Vol]107 mmol/EYtukso86-466Fgo [facility] Comment on above:Performed By: #### URTPCR #### [facility] [address] [place] [address] Dr. Alicia PatelCO2 [Moles/Vol]25.1 mmol/QLlwbke19.0-32.0The [facility] Comment on above:Performed By: #### URTPCR #### [facility] [address] [place] [address] Dr. Alicia PatelCreatinine [Mass/Vol]1.96 mg/dLCritically high0.70-1.30The [facility] HospitalComment on above:Performed By: #### URTPCR #### [facility] [address] [place] [address] Dr. Alicia Langley-AF ABGJVABF78 mL/min/1.12o2Wahpgblncc low>=60The [facility] HospitalComment on above:Performed By: #### URTPCR #### [facility] [address] [place] [address] Dr. Yilan ChangEGFR-NON AF CHXWGBCA17 mL/min/1.67y4Vqczmtvlif low>=60The [facility] HospitalComment on above:Performed By: #### URTPCR #### [facility] [address] [address] [address] Alicia PatelGlucose [Mass/Vol]151 mg/dLCritically ziyq16-557Tdg [facility] HospitalComment on above:Performed By: #### URTPCR #### [facility] [address] [address] [address] Alicia PatelPhosphate [Mass/Vol]3.5 mg/dLNormal2.6-4.7The [facility] Comment on above:Performed By: #### URTPCR #### [facility] [address] [place] [address] Dr. Alicia PatelPotassium [Moles/Vol]4.3 mmol/LNormal3.5-5.1[facility] Comment on above:Performed By: #### URTPCR #### [facility] [address] [place] [address] Dr. Alicia PatelSodium [Moles/Vol]142 mmol/ISfzeuz197-010XjzMercy Health – [facility] Comment on above:Performed By: #### URTPCR #### [facility] [address] [place] [address] Dr. Alicia PatelUrea nitrogen [Mass/Vol]23.0 mg/dLCritically high7.0-18.0The [facility] HospitalComment on above:Performed By: #### URTPCR #### [facility] [address] [place] [address] Dr. Alicia Mathew RANDOM W/MICROSCOPICon 51-33-7301MRUCSXIAZLCDPIwkbzazbRXAX SEENThe [facility] HospitalComment on above:Performed By: #### TSH, LIPID, T4, FT3, CMP #### [facility] [address] [place] [address] Dr. Alicia PatelBilirubin Ql (U)NegativeNormalNEGATIVEThe [facility] Comment on above:Performed By: #### TSH, LIPID, T4, FT3, CMP #### [facility] [address] [address] [address] Alicia Pruett SEENNormalNONE SEENSumma Health Barberton Campus on above:Performed By: #### TSH, LIPID, T4, FT3, CMP #### [facility] [address] [address] [address] Alicia Brizuelaarity (U)CLEARNormalCLEARMercy Health – The Jewish HospitalComment on above: Performed By: #### TSH, LIPID, T4, FT3, CMP #### [facility] [address] [address] [address] Alicia Perera (U)LT. YELLOWNormalYELLOWMercy Health – The Jewish HospitalComment on above:Performed By: #### TSH, LIPID, T4, FT3, CMP #### [facility] [address] [address] [address] Alicia PatelCrystals LM Nom (Urine sed)NONE SEENNormalNONE SEENMercy Health – The Jewish HospitalComveterans affairs [facility] on above:Performed By: #### TSH, LIPID, T4, FT3, CMP #### [facility] [address] [address] [address] Vargas ChangEpithelial cells LM Ql (Urine sed)RARENormalNONE SEEN /RAREMercy Health – The Jewish HospitalComveterans affairs [facility] on above:Performed By: #### TSH, LIPID, T4, FT3, CMP #### [facility] [address] [address] [address] Alicia PatelGlucose Ql (U)500 mg/dlAbnormalNEGRegency Hospital [place] Comment on above:Performed By: #### TSH, LIPID, T4, FT3, CMP #### [facility] [address] [address] [address] Alicia PatelHemoglobin Ql (U)LARGEAbnoChillicothe Hospital Comment on above:Performed By: #### TSH, LIPID, T4, FT3, CMP #### [facility] [address] [address] [address] Alicia Namones Ql (U)NegativeNormalNEGATIVEThe Charito HospitalComment on above:Performed By: #### TSH, LIPID, T4, FT3, CMP #### [facility] [address] [place] [address] Dr. Alicia PatelLEUKOCYTESNegativeNormalNEGATIVEThe [facility] HospitalComveter[facility] affairs [facility] on above:Performed By: #### TSH, LIPID, T4, FT3, CMP #### [facility] [address] [place] [address] Dr. Alicia RuggieroCOUSNONEssence SEENNormalNONE SEENThe [facility] HospitalComment on above:Performed By: #### TSH, LIPID, T4, FT3, CMP #### [facility] [address] [place] [address] Dr. Alicia Porter Ql (U)NegativeNormalNEGATIVEThe [facility] HospitalComment on above:Performed By: #### TSH, LIPID, T4, FT3, CMP #### [facility] [address] [place] [address] Dr. Alicia PatelpH (U)6.0 [pH]Normal5-9[facility] Columbusment on above: Performed By: #### TSH, LIPID, T4, FT3, CMP #### [facility] [address] [place] [address] Dr. Alicia PatelLtseuYIF06-04Bjwtqtva3-9Kth [facility] on above: Performed By: #### TSH, LIPID, T4, FT3, CMP #### [facility] [address] [place] [address] Dr. Alicia PatelSPEC GRAVITY1.958Wuhrkl8.005-<=1.025The [facility] on above:Performed By: #### TSH, LIPID, T4, FT3, CMP #### [facility] [address] [place] [address] Dr. Alicia Mathew CQXSXUN684 mg/dlAbnormalNEGATIVE/ TRACEThe [facility] Comment on above:Performed By: #### TSH, LIPID, T4, FT3, CMP #### [facility] [address] [place] [address] Dr. Yilan ChangUrobilinogen Qn (U)0.2 {Wil'U}/dLNormal0.2 - 1.0The [facility] HospitalComment on above:Performed By: #### TSH, LIPID, T4, FT3, CMP #### [facility] [address] [place] [address] Dr. Alicia PatelWBC0-2AbnormalNONE SEENThe [facility] HospitalComment on above: Performed By: #### TSH, LIPID, T4, FT3, CMP #### [facility] [address] [place] [address] Dr. Alicia PatelURIC ACID SERUMon [id number] [Mass/Vol]5.8 mg/dLNormal 3.5-7.2The [facility] HospitalComment on above:Performed By: #### URTPCR #### [facility] [address] [place] [address] Dr. Alicia Friend T PROTEIN CREAT RATIOon [id number] (U) [Mass/Vol] 122.4 mg/dLCritically high<=12.0The [facility] HospitalComment on above:Performed By: #### URTPCR #### [facility] [address] [place] [address] Dr. Alicia Nj PROT CREAT RAT1.38NoToledo HospitalComment on above: Performed By: #### URTPCR #### [facility] [address] [place] [address] Dr. Alicia Friend CREAT88.74 mg/iXMrrqco45.00-300.00The [facility] Comment on above:Performed By: #### URTPCR #### [facility] [address] [place] [address] Dr. Alicia Upton D 25 OHon [id number] D 25-OH58.0 ng/mLNormalMercy Health – The Jewish HospitalComment on above:Performed By: #### TSH, LIPID, T4, FT3, CMP #### [facility] [address] [place] [address] Dr. Alicia Eli RANGESSEE BELOWUK HealthcareComment on above: Result Comment: <20 ng/mL Vit D deficient 20 - <30 ng/mL Vit D insufficient 30 - 100 ng/mL Vit D sufficient >100 ng/mL Potential ToxicityPerformed By: #### TSH, LIPID, T4, FT3, CMP #### [facility] [address] [address] [address] Alicia Mathis KIDNEYSon [id number] KIDNEYSEXAMINATION: US KIDNEYS HISTORY: Kidney stone COMPARISON: No relevant comparison [...] Electronically authenticated by: TYLER MONSIVAIS Date: 2022-09-01 09:33UK HealthcarePSA, FREE AND TOTAL RATIOon 08-25-2022% Free PSA13.7 %NormalThe [facility] HospitalComment on above:Result Comment: The table below lists the probability [...] free PSA for any other population of men.Performed By: #### TSH, LIPID, T4, FT3, CMP #### [facility] [address] [place] [address] Dr. Alicia PatelProstate specific Ag [Mass/Vol]6.2 ng/mLCritically high0.0-4.0The [facility] HospitalComment on above:Result Comment: Brenda ECLIA methodology. . According to the [employer], Serum PSA should decrease and [...] of the presence or absence of malignant disease.Performed By: #### TSH, LIPID, T4, FT3, CMP #### [facility] [address] [place] [address] Dr. Alicia PatelPSA, Free0.85 ng/mLNormalN/AThe [facility] HospitalComment on above:Result Comment: Brenda ECLIA methodology.Performed By: #### TSH, LIPID, T4, FT3, CMP #### [facility] [address] [place] [address] Dr. Alicia Ordonez BLD IMMUNO SCREENon [id number] BLOODNegativeNormal NEGATIVEThe [facility] HospitalComment on above:Performed By: #### TSH, LIPID, T4, FT3, CMP #### [facility] [address] [place] [address] Dr. Alicia PatelCBC AUTO DIFFon [id number] #0.0 103/ulNormal0.0-0.1The [facility] HospitalComment on above:Performed By: #### URTPCR #### [facility] [address] [place] [address] Dr. Alicia PatelBasophils/100 WBC (Bld)0.3 %Normal0.2-2.0The [facility] Comment on above:Performed By: #### URTPCR #### [facility] [address] [place] [address] Dr. Alicia Coats #0.2 103/ulNormal0.0-0.7The [facility] HospitalComment on above: Performed By: #### URTPCR #### [facility] [address] [place] [address] Dr. Alicia Dunnosinophils/100 WBC (Bld)3.2 %Normal0.9-7.0[facility] Comment on above:Performed By: #### URTPCR #### [facility] [address] [place] [address] Dr. Alicia Dunnrythrocyte distribution width (RBC) [Ratio]12.9 %Fagekz23.0-15.0 [facility] Jewish HospitalComment on above:Performed By: #### URTPCR #### [facility] [address] [place] [address] Dr. Alicia PatelHematocrit (Bld) [Volume fraction]35.4 %Critically low42.0-54.0 [facility] Jewish HospitalComment on above:Performed By: #### URTPCR #### [facility] [address] [place] [address] Dr. Alicia PatelHemoglobin (Bld) [Mass/Vol]11.7 g/dLCritically low14.0-18.0[facility] HospitalComment on above:Performed By: #### URTPCR #### [facility] [address] [place] [address] Dr. Alicia Bell #0.08 10e3/ulCritically high0.00-0.03The [facility] Comment on above:Performed By: #### URTPCR #### [facility] [address] [place] [address] Dr. Alicia Bell %1.2 %Critically high0.0-0.5The [facility] HospitalComment on above:Performed By: #### URTPCR #### [facility] [address] [place] [address] Dr. Alicia Magallon #1.1 103/ulCritically low1.2-3.8The [facility] Comment on above:Performed By: #### URTPCR #### [facility] [address] [place] [address] Dr. Alicia Lebronmphocytes/100 WBC (Bld)16.6 %Critically low20.5-60.0The [facility] HospitalComment on above:Performed By: #### URTPCR #### [facility] [address] [place] [address] Dr. Alicia KincaidUAL DIFF REQNONormalThe [facility] HospitalComment on above: Performed By: #### URTPCR #### [facility] [address] [place] [address] Dr. Alicia Nixon (RBC) [Entitic mass]32.4 tcAfphgi62.9-34.0The [facility] HospitalComment on above:Performed By: #### URTPCR #### [facility] [address] [place] [address] Dr. Alicia Nixon (RBC) [Mass/Vol]33.1 g/nBGezyuc50.9-35.2The [facility] HospitalComment on above:Performed By: #### URTPCR #### [facility] [address] [place] [address] Dr. Alicia Villanueva (RBC) [Entitic vol]98.1 fLCritically high80.0-94.0The [facility] HospitalComment on above:Performed By: #### URTPCR #### [facility] [address] [place] [address] Dr. Alicia Merchant #0.6 103/ulNormal0.3-0.8The [facility] HospitalComment on above:Performed By: #### URTPCR #### [facility] [address] [place] [address] Dr. Alicia Carpenterocytes/100 WBC (Bld)8.8 %Normal1.7-12.0The [facility] Comment on above:Performed By: #### URTPCR #### [facility] [address] [place] [address] Dr. Yilan ChangNEUT #4.8 103/ulNormal1.4-6.5The [facility] HospitalComment on above:Performed By: #### URTPCR #### [facility] [address] [place] [address] Dr. Alicia Kapoorutrophils/100 WBC (Bld)69.9 %Zqrzyi37.0-75.0The [facility] HospitalComment on above:Performed By: #### URTPCR #### [facility] [address] [place] [address] Dr. Alicia PatelPlatelet mean volume (Bld) [Entitic vol]10.4 fLNormal9.5-13.5The [facility] HospitalComment on above:Performed By: #### URTPCR #### [facility] [address] [place] [address] Dr. Alicia PatelPLT200 103/hpNrrxzb677-807Oyh [facility] HospitalComment on above: Performed By: #### URTPCR #### [facility] [address] [place] [address] Dr. Alicia PatelRBC3.61 106/ulCritically low4.70-6.10The [facility] HospitalComment on above:Performed By: #### URTPCR #### [facility] [address] [place] [address] Dr. Alicia PatelWBC6.8 103/ulNormal4.0-11.0The [facility] HospitalComment on above: Performed By: #### URTPCR #### [facility] [address] [place] [address] Dr. Alicia PatelFREE T3on [id number] T31.91 pg/mlLCritically low2.18-3.98The [facility] HospitalComveterans affairs [facility] on above:Performed By: #### TSH, LIPID, T4, FT3, CMP #### [facility] [address] [place] [address] Dr. Alicia PatelGLYCOHEMOGLOBIN A1Con [id number] RECOMMENDATIONSEE BELOWNormal The [facility] HospitalComment on above:Result Comment: ADA RECOMMENDED LIMIT 4.0 - 6.0 ADA THERAPEUTIC TARGET < 7.0 ACTION SUGGESTED > 7.0Performed By: #### TSH, LIPID, T4, FT3, CMP #### [facility] [address] [place] [address] Dr. Alicia PatelGlucose [Mass/Vol]194 mg/dLUK HealthcareComment on above:Performed By: #### TSH, LIPID, T4, FT3, CMP #### [facility] [address] [place] [address] Dr. Alicia PatelHbA1c (Bld) [Mass fraction]8.4 %Critically high4.5-6.2[facility] Jewish HospitalComment on above:Performed By: #### TSH, LIPID, T4, FT3, CMP #### [facility] [address] [place] [address] Dr. Alicia PatleLIPID PROFILEon [id number]-HDL RATIO NORMSEE BELOWUK HealthcareComment on above:Result Comment: 3.3 - 4.4 LOW RISK 4.4 - 7.1 AVERAGE RISK 7.1 - 11.0 MODERATE RISK >11.0 HIGH RISKPerformed By: #### TSH, LIPID, T4, FT3, CMP #### [facility] [address] [place] [address] Dr. Alicia Pooleesterol [Mass/Vol]120 mg/dLNormal<=200The [facility] Comment on above:Performed By: #### TSH, LIPID, T4, FT3, CMP #### [facility] [address] [place] [address] Dr. Alicia Pooleesterol in HDL [Mass/Vol]30 mg/dLCritically cuz09-07RiqMercy Health – The Jewish HospitalComment on above:Performed By: #### TSH, LIPID, T4, FT3, CMP #### [facility] [address] [place] [address] Dr. Alicia Pooleesterol in LDL [Mass/Vol]59.8 mg/dLUK HealthcareComment on above:Performed By: #### TSH, LIPID, T4, FT3, CMP #### [facility] [address] [address] [address] Alicia PatelCholesterol.total/Cholesterol in HDL [Mass ratio]4.0 {ratio} NormalThe [facility] on above:Performed By: #### TSH, LIPID, T4, FT3, CMP #### [facility] [address] [place] [address] Dr. Alicia Drew NORMAL> or = 60 mg/dl - LOW CARDIOVASCULAR RISK <40 mg/dl - HIGH CARDIOVASCULAR RISKUK HealthcareComveterans affairs ann [facility] healthcare system on above:Performed By: #### TSH, LIPID, T4, FT3, CMP #### [facility] [address] [place] [address] Dr. Alicia Do CALC NORMALSEE BELOWUK HealthcareComment on above:Result Comment: <100 mg/dl OPTIMAL 100 - 129 mg/dl NEAR OR ABOVE OPTIMAL 130 - 159 mg/dl BORDERLINE HIGH 160 - 189 mg/dl HIGH >190 mg/dl VERY HIGH Performed By: #### TSH, LIPID, T4, FT3, CMP #### [facility] [address] [place] [address] Dr. Alicia PatelTriglyceride [Mass/Vol]151 mg/dLCritically high<=150The [facility] on above:Performed By: #### TSH, LIPID, T4, FT3, CMP #### [facility] [address] [place] [address] Dr. Alicia SappLDL CALC30.2 mg/dLNoToledo HospitalComveterans affairs ann [facility] healthcare system on above: Performed By: #### TSH, LIPID, T4, FT3, CMP #### [facility] [address] [place] [address] Dr. Alicia PatelPROSmita 14(COMP METB)on [id number] [Mass/Vol]3.3 g/dL Critically low3.4-5.0The [facility] on above:Performed By: #### TSH, LIPID, T4, FT3, CMP #### [facility] [address] [place] [address] Dr. Alicia PatelAlbumin/Globulin [Mass ratio]0.9 {ratio}NormalThe [facility] HospitalComment on above:Performed By: #### TSH, LIPID, T4, FT3, CMP #### [facility] [address] [address] [address] Alicia Estrella [Catalytic activity/Vol]79 U/KOklkcj25-505Rwb [facility] Jewish Hospitalment on above:Performed By: #### TSH, LIPID, T4, FT3, CMP #### [facility] [address] [address] [address] Alicia Mejia [Catalytic activity/Vol]61 U/KEmljug50-92Qep [facility] HospitalComment on above:Performed By: #### TSH, LIPID, T4, FT3, CMP #### [facility] [address] [place] [address] Dr. Alicia Slateron gap [Moles/Vol]12.6 mmol/LNormalThe [facility] Comment on above:Performed By: #### TSH, LIPID, T4, FT3, CMP #### [facility] [address] [place] [address] Dr. Alicia PatelAST [Catalytic activity/Vol]39 U/LCritically eaxa05-79Pwj [facility] HospitalComment on above:Performed By: #### TSH, LIPID, T4, FT3, CMP #### [facility] [address] [place] [address] Dr. Alicia PatelBilirubin [Mass/Vol]0.7 mg/dLNormal0.2-1.0The [facility] Comment on above:Performed By: #### TSH, LIPID, T4, FT3, CMP #### [facility] [address] [place] [address] Dr. Alicia PatelCalcium [Mass/Vol]8.9 mg/dLNormal8.5-10.1The [facility] Comment on above:Performed By: #### TSH, LIPID, T4, FT3, CMP #### [facility] [address] [place] [address] Dr. Alicia PatelChloride [Moles/Vol]111 mmol/LCritically ngub02-302Msr [facility] HospitalComment on above:Performed By: #### TSH, LIPID, T4, FT3, CMP #### [facility] [address] [place] [address] Dr. Alicia PatelCO2 [Moles/Vol]24.0 mmol/CViureh57.0-32.0The [facility] Comment on above:Performed By: #### TSH, LIPID, T4, FT3, CMP #### [facility] [address] [place] [address] Dr. Alicia PatelCreatinine [Mass/Vol]1.80 mg/dLCritically high0.70-1.30The [facility] HospitalComment on above:Performed By: #### TSH, LIPID, T4, FT3, CMP #### [facility] [address] [place] [address] Dr. Alicia DunnGFR-AF CMLTHALM51 mL/min/1.69h9Etxeubyfpt low>=60The [facility] HospitalComment on above:Performed By: #### TSH, LIPID, T4, FT3, CMP #### [facility] [address] [place] [address] Dr. Alicia DunnGFR-NON AF ZNNFDPIF69 mL/min/1.71n0Hlefllizcx low>=60The [facility] HospitalComment on above:Performed By: #### TSH, LIPID, T4, FT3, CMP #### [facility] [address] [place] [address] Dr. Alicia PatelGlobulin (S) [Mass/Vol]3.5 g/dLNormalThe [facility] HospitalComment on above:Performed By: #### TSH, LIPID, T4, FT3, CMP #### [facility] [address] [place] [address] Dr. Alicia PatelGlucose [Mass/Vol]118 mg/dLCritically nfkz63-554Tjb [facility] Hospitalment on above:Performed By: #### TSH, LIPID, T4, FT3, CMP #### [facility] [address] [place] [address] Dr. Alicia PatelPotassium [Moles/Vol]4.6 mmol/LNormal3.5-5.1The [facility] Comment on above:Performed By: #### TSH, LIPID, T4, FT3, CMP #### [facility] [address] [place] [address] Dr. Alicia PatelProtein [Mass/Vol]6.8 g/dLNormal6.4-8.2The [facility] Comment on above:Performed By: #### TSH, LIPID, T4, FT3, CMP #### [facility] [address] [place] [address] Dr. Alicia PatelSodium [Moles/Vol]143 mmol/XDwovzx063-336Uij [facility] Comment on above:Performed By: #### TSH, LIPID, T4, FT3, CMP #### [facility] [address] [place] [address] Dr. Alicia PatelUrea nitrogen [Mass/Vol]31.0 mg/dLCritically high7.0-18.0The [facility] HospitalComment on above:Performed By: #### TSH, LIPID, T4, FT3, CMP #### [facility] [address] [place] [address] Dr. Alicia Nguyễn nitrogen/Creatinine [Mass ratio]17.2 mg/mgNormalThe [facility] HospitalComment on above:Performed By: #### TSH, LIPID, T4, FT3, CMP #### [facility] [address] [place] [address] Dr. Alicia Mena [id number] [Mass/Vol]7.70 ug/dLNormal4.50-12.10The [facility] HospitalComment on above:Performed By: #### TSH, LIPID, T4, FT3, CMP #### [facility] [address] [place] [address] Dr. Alicia Pinto 15-94-5742XHV0.138 uIU/mLNormal0.358-3.740The [facility] HospitalComment on above:Performed By: #### TSH, LIPID, T4, FT3, CMP #### [facility] [address] [place] [address] Dr. Alicia SalgueroAL FUNCTION PANELon [id number] [Mass/Vol]3.3 g/dL Critically low3.4-5.0The [facility] HospitalComment on above:Performed By: #### URTPCR #### [facility] [address] [address] [address] Alicia PatelCalcium [Mass/Vol]8.3 mg/dLCritically low8.5-10.1The [facility] HospitalComment on above:Performed By: #### URTPCR #### [facility] [address] [address] [address] Alicia PatelChloride [Moles/Vol]109 mmol/LCritically iqfl90-390Hke [facility] HospitalComment on above:Performed By: #### URTPCR #### [facility] [address] [place] [address] Dr. Alicia PatelCO2 [Moles/Vol]22.1 mmol/RDzhhyd36.0-32.0The [facility] Comment on above:Performed By: #### URTPCR #### [facility] [address] [address] [address] Alicia PatelCreatinine [Mass/Vol]2.14 mg/dLCritically high0.70-1.30The [facility] HospitalComment on above:Performed By: #### URTPCR #### [facility] [address] [address] [address] Vargas ChangEGFR-AF FWCEKPAR77 mL/min/1.33b7Pwrjwwysae low>=60The [facility] HospitalComment on above:Performed By: #### URTPCR #### [facility] [address] [address] [address] Alicia DunnGFR-NON AF XROVQPMC03 mL/min/1.32m4Wcicgbxsja low>=60The [facility] Harrison Community HospitalComment on above:Performed By: #### URTPCR #### [facility] [address] [address] [address] Alicia PatelGlucose [Mass/Vol]102 mg/rQUgtckb84-567Jdr [facility] Comment on above:Performed By: #### URTPCR #### [facility] [address] [address] [address] Alicia PatelPhosphate [Mass/Vol]3.1 mg/dLNormal2.6-4.7The [facility] Comment on above:Performed By: #### URTPCR #### [facility] [address] [address] [address] Alicia PatelPotassium [Moles/Vol]3.9 mmol/LNormal3.5-5.1[facility] Comment on above:Performed By: #### URTPCR #### [facility] [address] [address] [address] Alicia PatelSodium [Moles/Vol]141 mmol/WPwagrs286-830Gjo [facility] Comment on above:Performed By: #### URTPCR #### [facility] [address] [address] [address] Alicia PatelUrea nitrogen [Mass/Vol]41.0 mg/dLCritically high7.0-18.0[facility] HospitalComment on above:Performed By: #### URTPCR #### [facility] [address] [address] [address] Alicia PatelCreatinine and Glomerular filtration rate.predicted panel (S/P/Bld)Ordered By: Hiral Interiano on 16-64-0465Vhktutwnqg [Mass/Vol]3.46 mg/dL 0.64-1.27[facility] HospitalComment on above:Delta: 6.60 on 08/14/22-0433Estimated glomerular filtration rate (GFR) non- Ordered By: Hiral Interiano on 63-88-5597SIC/1.73 sq M.predicted among non-blacks MDRD (S/P/Bld) [Vol rate/Area]17 mL/MinHocking Valley Community HospitalGlucose Glucometer (BldC) [Mass/Vol]Ordered By: Hiral Interiano on 00-79-6775Vxvcgeb [Mass/Vol]135 mg/dLHocking Valley Community HospitalComment on above:Random Glucose Reference Range is dependent on time and content of last meal. Glucose of more than 200 mg/dL in a nonstressed, ambulatory subject supports the diagnosis of Diabetes Mellitus.No Panel InformationOrdered By: Hiral Interiano on 22-98-4647Zpgbhkeez GFR ()21 mL/MinHocking Valley Community HospitalComment on above:GFR estimated reference range: According to KDOQI guidelines, <60 ml/min/1.73m2 is sufficient todiagnose a patient with chronic kidney disease.Pharmacy Creatinine Clearance (Chem21.94Magruder Hospitalerum or plasma anion gap determinationOrdered By: Hiral Interiano on 02-39-0908Vwuhn gap [Moles/Vol]10.3 mmol/L6.0-15.0[facility]ruder Hospitalerum or plasma calcium measurement (mass/volume)Ordered By: Hiral Interiano on 56-51-7332Ubzwfmp [Mass/Vol]7.7 mg/dL8.2-10.2FLouis Stokes Cleveland VA Medical Centererum or plasma chloride measurement (moles/volume)Ordered By: Hiral Interiano on 78-24-5462Otwdfqtt [Moles/Vol]112 mmol/E67-160SphegrikjMagruder Hospitalerum or plasma glucose measurement (mass/volume)Ordered By: Hiral Interiano on 40-11-5162Avgrcvg [Mass/Vol]140 mg/lD01-851WpwabusmaHocking Valley Community HospitalComment on above:ADA recommended reference rangeRandom Glucose Reference Range is dependent on time and content of last meal. Glucose of more than 200 mg/dL in a nonstressed, ambulatory subject supports the diagnosisof Diabetes Mellitus.Serum or plasma potassium measurement (moles/volume)Ordered By: Hiral Interiano on 15-71-0630Lrerarlqp [Moles/Vol]3.8 mmol/L3.5-5.1FLouis Stokes Cleveland VA Medical Centererum or plasma sodium measurement (moles/volume)Ordered By: Hiral Interiano on 86-92-0263Eeudxc [Moles/Vol]140 mmol/Z685-581NghurixxlMagruder Hospitalerum or plasma total carbon dioxide measurement (moles/volume)Ordered By: Hiral Interiano on 49-12-9278NB0 [Moles/Vol]21.5 mmol/L 22.0-30.0[facility]uder Hospitalerum or plasma urea nitrogen measurement (mass/volume)Ordered By: Hiral Interiano on 17-58-4253Zmds nitrogen [Mass/Vol]45 mg/dL9-23[facility] HospitalBasophils Auto (Bld) [#/Vol]Ordered By: Hiral Interiano on 37-94-2309Lvzzyisul (Bld) [#/Vol]0.0 10*3/uL 0.0-0.2FGreen Cross HospitalBasophils/100 WBC Auto (Bld)Ordered By: Hiral Interiano on 09-41-7484Lhpvoqeaf/100 WBC (Bld)0.2 %.[facility] HospitalEosinophils Auto (Bld) [#/Vol]Ordered By: Hiral Interiano on 08-15-3167Wegowpsfvmn (Bld) [#/Vol]0.1 10*3/uL0.0-0.45[facility] HospitalEosinophils/100 WBC Auto (Bld)Ordered By: Hiral Interiano on 08-14-2022 Eosinophils/100 WBC (Bld)1.0 %.[facility] HospitalErythrocyte distribution width Auto (RBC) [Ratio]Ordered By: Hiral Interiano on 08-14-2022 Erythrocyte distribution width (RBC) [Ratio]13.5 %12.0-14.8[facility] HospitalHematocrit Auto (Bld) [Volume fraction]Ordered By: Hiral Interiano on 94-41-8987Obstvmmjtp (Bld) [Volume fraction]35.4 %38.8-50.0[facility] HospitalHemoglobin [Mass/volume] in BloodOrdered By: Hiral Interiano on 87-21-2880Ajxbaxmgna (Bld) [Mass/Vol]12.0 g/dL13.0-17.0[facility] HospitalLeukocytes [#/volume] corrected for nucleated erythrocytes in Blood by Automated counOrdered By: Hiral Interiano on 28-45-6644AND corrected for nucl RBC Auto (Bld) [#/Vol]7.4 10*3/uL4.1-10.5FGreen Cross Hospital Lymphocytes Auto (Bld) [#/Vol]Ordered By: Hirla Interiano on 28-32-8270Toqibswfdgi (Bld) [#/Vol]0.6 10*3/uL1.00-4.8[facility] Lymphocytes/100 WBC Auto (Bld)Ordered By: Hiral Interiano on 08-14-2022 Lymphocytes/100 WBC (Bld)7.8 %.[facility] HospitalMCH Auto (RBC) [Entitic mass]Ordered By: Hiral Interiano on 08-12-0480QQY (RBC) [Entitic mass] 33.0 pg27.5-35.2FGreen Cross HospitalMCHC Auto (RBC) [Mass/Vol] Ordered By: Hiral Interiano on 96-39-2984DKNT (RBC) [Mass/Vol]33.9 g/dL32.5-35.6 [facility] HospitalMCV Auto (RBC) [Entitic vol]Ordered By: Hiral Interiano on 37-87-7312SIK (RBC) [Entitic vol]97.3 fL83.5-101[facility] HospitalMonocytes Auto (Bld) [#/Vol]Ordered By: Hiral Interiano on 70-49-0843Hyvibuxsw (Bld) [#/Vol]0.8 10*3/uL0.0-0.8[facility] HospitalMonocytes/100 WBC Auto (Bld)Ordered By: Hiral Interiano on 08-14-2022 Monocytes/100 WBC (Bld)11.4 %.[facility] HospitalNeutrophils Auto (Bld) [#/Vol]Ordered By: Hiral Interiano on 84-25-5590Mmppxehkrzf (Bld) [#/Vol]5.9 10*3/uL1.8-7.7FGreen Cross HospitalNeutrophils/100 WBC Auto (Bld) Ordered By: Hiral Interiano on 65-65-8915Ksmgbtakzhu/100 WBC (Bld)79.6 %.[facility] HospitalNo Panel InformationOrdered By: Hiral Interiano on 23-40-9108Qsbqawm Glucose CommentGlu2: cleaned meterHocking Valley Community HospitalNucleated erythrocytes [Presence] in Blood by Automated countOrdered By: Hiral Interiano on 87-69-4230Mhifpetpw RBC Auto Ql (Bld)0.1 /100{WBC}0-0.5 [facility] HospitalPlatelet mean volume Auto (Bld) [Entitic vol] Ordered By: Hiral Interiano on 77-67-7666Iiiuurrq mean volume (Bld) [Entitic vol] 8.4 fL6.6-10.1FGreen Cross HospitalPlatelets Auto (Bld) [#/Vol] Ordered By: Hiral Interiano on 37-74-0492Smtcqmfnx (Bld) [#/Vol]121 10*3/hR892-970 [facility] HospitalRBC Auto (Bld) [#/Vol]Ordered By: Hiral Interiano on 52-89-3680FXA (Bld) [#/Vol]3.64 10*6/uL3.90-5.60[facility] HospitalWBC Auto (Bld) [#/Vol]Ordered By: Hiral Interiano on 30-53-0445PET (Bld) [#/Vol]7.4 10*3/uL4.1-10.5FGreen Cross HospitalBody fluid albumin measurement (mass/volume)Ordered By: Alicia León on 37-96-2075Pddursa (Body fld) [Mass/Vol]3.0 g/dL3.2-5.5FGreen Cross HospitalGlucose mean value [Mass/volume] in Blood Estimated from glycated hemoglobinOrdered By: Hiral Interiano on 51-96-6920Tjkfswi glucose Estimated from glycated hemoglobin (Bld) [Mass/Vol]212 mg/dLHocking Valley Community HospitalHemoglobin A1c percentage Ordered By: Hiral Interiano on 90-50-4280BnC5s (Bld) [Mass fraction]9.0 %4.3-5.6 [facility] HospitalComment on above:Increased risk for diabetes: 5.7 - 6.4diabetes: >6.4glycemic control for adults with diabetes: <7.0 Anisocytosis LM Ql (Bld)Ordered By: Hiral Interiano on 82-66-4222Igovbqaimzqa Ql (Bld)[facility] HospitalBand form neutrophils/100 WBC Manual cnt (Bld)Ordered By: Hiral Interaino on 76-34-6198Toef form neutrophils/100 WBC (Bld)1 %0-5FGreen Cross HospitalBeta-hydroxybutyric acid measurement Ordered By: Alicia León on 74-65-0185Jvoj hydroxybutyrate [Mass/Vol]2.40 mmol/L 0.05-0.27[facility] HospitalBurr cells [Presence] in Blood by Light microscopyOrdered By: Hiral Interiano on 12-99-0559Akmp cells LM Ql (Bld) [facility] HospitalCARDIAC GUIDO 3-6on 72-19-7367JK [Catalytic activity/Vol]162 U/ZNlwjir85-867Uvb [facility] HospitalComment on above:Performed By: #### TSH, LIPID, T4, FT3, CMP #### [facility] [address] [place] [address] Dr. Alicia Kaur.MB [Mass/Vol]5.52 ng/mLCritically high<=3.60The [facility] on above:Performed By: #### TSH, LIPID, T4, FT3, CMP #### [facility] [address] [place] [address] Dr. Alicia CaseyTROP19.7 pg/mLNormal4.0-76.1The [facility] on above:Result Comment: CUT-OFF POINTS HAVE BEEN ESTABLISHED BASED ON THE FOURTH UNIVERSAL DEFINITIONS OF MYOCARDIAL INFARCTION. THE UPPER REFERENCE LIMIT (URL) OF TROPONIN, DEFINED THE 99TH PERCENTILE OF cTnI DISTRIBUTION IN A REFERENCE POPULATION, HAS BEEN CONFIRMED THE DECISION THRESHOLD FOR [place] DIAGNOSIS.Performed By: #### TSH, LIPID, T4, FT3, CMP #### [facility] [address] [place] [address] Dr. Alicia Kaur [Catalytic activity/Vol]150 U/PAnorcu60-449Qjh [facility] Hospitalment on above:Performed By: #### TSH, LIPID, T4, FT3, CMP #### [facility] [address] [place] [address] Dr. Alicia Kaur.MB [Mass/Vol]4.99 ng/mLCritically high<=3.60The [facility] on above:Performed By: #### TSH, LIPID, T4, FT3, CMP #### [facility] [address] [place] [address] Dr. Alicia Israel16.9 pg/mLNormal4.0-76.1The [facility] on above:Result Comment: CUT-OFF POINTS HAVE BEEN ESTABLISHED BASED ON THE FOURTH UNIVERSAL DEFINITIONS OF MYOCARDIAL INFARCTION. THE UPPER REFERENCE LIMIT (URL) OF TROPONIN, DEFINED THE 99TH PERCENTILE OF cTnI DISTRIBUTION IN A REFERENCE POPULATION, HAS BEEN CONFIRMED THE DECISION THRESHOLD FOR [place] DIAGNOSIS.Performed By: #### TSH, LIPID, T4, FT3, CMP #### [facility] [address] [place] [address] Dr. Alicia Tesfaye GUIDO ADMITon 24-81-4421HA [Catalytic activity/Vol]128 U/L Fpcpmi04-800Jao [facility] on above:Performed By: #### TSH, LIPID, T4, FT3, CMP #### [facility] [address] [place] [address] Dr. Alicia Kaur.MB [Mass/Vol]4.95 ng/mLCritically high<=3.60The [facility] on above:Performed By: #### TSH, LIPID, T4, FT3, CMP #### [facility] [address] [place] [address] Dr. Alicia Israel18.0 pg/mLNormal4.0-76.1[facility] on above:Result Comment: CUT-OFF POINTS HAVE BEEN ESTABLISHED BASED ON THE FOURTH UNIVERSAL DEFINITIONS OF MYOCARDIAL INFARCTION. THE UPPER REFERENCE LIMIT (URL) OF TROPONIN, DEFINED THE 99TH PERCENTILE OF cTnI DISTRIBUTION IN A REFERENCE POPULATION, HAS BEEN CONFIRMED THE DECISION THRESHOLD FOR [place] DIAGNOSIS.Performed By: #### TSH, LIPID, T4, FT3, CMP #### [facility] [address] [place] [address] Dr. Alicia StaleyO188 ng/mLCritically lttd86-12Olv [facility] HospitalComment on above:Performed By: #### TSH, LIPID, T4, FT3, CMP #### [facility] [address] [place] [address] Dr. Alicia Boswell AUTO DIFFon 36-32-0099UYJM #0.0 103/ulNormal0.0-0.1The [facility] HospitalComment on above:Performed By: #### TSH, LIPID, T4, FT3, CMP #### [facility] [address] [place] [address] Dr. Alicia PatelBasophils/100 WBC (Bld)0.3 %Normal0.2-2.0The [facility] Comment on above:Performed By: #### TSH, LIPID, T4, FT3, CMP #### [facility] [address] [place] [address] Dr. Alicia Coats #0.2 103/ulNormal0.0-0.7The [facility] HospitalComment on above: Performed By: #### TSH, LIPID, T4, FT3, CMP #### [facility] [address] [place] [address] Dr. Alicia Dunnosinophils/100 WBC (Bld)1.8 %Normal0.9-7.0The [facility] Comment on above:Performed By: #### TSH, LIPID, T4, FT3, CMP #### [facility] [address] [place] [address] Dr. Alicia Dunnrythrocyte distribution width (RBC) [Ratio]13.2 %Sjbbgc04.0-15.0 The [facility] HospitalComment on above:Performed By: #### TSH, LIPID, T4, FT3, CMP #### [facility] [address] [place] [address] Dr. Alicia PatelHematocrit (Bld) [Volume fraction]36.0 %Critically low42.0-54.0 The [facility] HospitalComment on above:Performed By: #### TSH, LIPID, T4, FT3, CMP #### [facility] [address] [place], [place] [id number] Dr. Alicia PatelHemoglobin (Bld) [Mass/Vol]12.0 g/dLCritically low14.0-18.0The [facility] HospitalComment on above:Performed By: #### TSH, LIPID, T4, FT3, CMP #### [facility] [address] [place] [address] Dr. Alicia Bell #0.34 10e3/ulCritically high0.00-0.03The [facility] Comment on above:Performed By: #### TSH, LIPID, T4, FT3, CMP #### [facility] [address] [place] [address] Dr. Alicia Bell %3.8 %Critically high0.0-0.5The [facility] HospitalComment on above:Performed By: #### TSH, LIPID, T4, FT3, CMP #### [facility] [address] [place] [address] Dr. Alicia Magallon #0.5 103/ulCritically low1.2-3.8The [facility] Comment on above:Performed By: #### TSH, LIPID, T4, FT3, CMP #### [facility] [address] [place] [address] Dr. Alicia Gonzaleshocytes/100 WBC (Bld)5.9 %Critically low20.5-60.0The [facility] HospitalComment on above:Performed By: #### TSH, LIPID, T4, FT3, CMP #### [facility] [address] [place] [address] Dr. Alicia KincaidUAL DIFF REQNONormalThe [facility] HospitalComment on above: Performed By: #### TSH, LIPID, T4, FT3, CMP #### [facility] [address] [place] [address] Dr. Alicia Madrigal (RBC) [Entitic mass]32.3 ywPvuemy41.9-34.0The [facility] HospitalComment on above:Performed By: #### TSH, LIPID, T4, FT3, CMP #### [facility] [address] [place] [address] Dr. Alicia Nixno (RBC) [Mass/Vol]33.3 g/xHUivjha72.9-35.2The [facility] HospitalComment on above:Performed By: #### TSH, LIPID, T4, FT3, CMP #### [facility] [address] [place] [address] Dr. Alicia Nixon (RBC) [Entitic vol]97.0 fLCritically high80.0-94.0The [facility] HospitalComment on above:Performed By: #### TSH, LIPID, T4, FT3, CMP #### [facility] [address] [place] [address] Dr. Alicia Merchant #0.5 103/ulNormal0.3-0.8The [facility] HospitalComment on above:Performed By: #### TSH, LIPID, T4, FT3, CMP #### [facility] [address] [place] [address] Dr. Alicia Carpenterocytes/100 WBC (Bld)5.5 %Normal1.7-12.0The [facility] Comment on above:Performed By: #### TSH, LIPID, T4, FT3, CMP #### [facility] [address] [place] [address] Dr. Alicia Bright #7.5 103/ulCritically high1.4-6.5The [facility] Comment on above:Performed By: #### TSH, LIPID, T4, FT3, CMP #### [facility] [address] [place] [address] Dr. Alicia Kapoorutrophils/100 WBC (Bld)82.7 %Critically high43.0-75.0The [facility] HospitalComment on above:Performed By: #### TSH, LIPID, T4, FT3, CMP #### [facility] [address] [place] [address] Dr. Alicia Marks mean volume (Bld) [Entitic vol]10.2 fLNormal9.5-13.5The [facility] HospitalComment on above:Performed By: #### TSH, LIPID, T4, FT3, CMP #### [facility] [address] [address] [address] Alicia PatelPLT191 103/umYxctsg795-400Bwv [facility] HospitalComment on above: Performed By: #### TSH, LIPID, T4, FT3, CMP #### [facility] [address] [place] [address] Dr. Alicia PatelRBC3.71 106/ulCritically low4.70-6.10The [facility] HospitalComment on above:Performed By: #### TSH, LIPID, T4, FT3, CMP #### [facility] [address] [place] [address] Dr. Alicia PatelWBC9.0 103/ulNormal4.0-11.0The [facility] HospitalComment on above: Performed By: #### TSH, LIPID, T4, FT3, CMP #### [facility] [address] [place] [address] Dr. Alicia PatelCT ABD/PELVIS WO CONon [id number] ABD/PELVIS WO CONEXAMINATION: CT ABD/PELVIS WO CON, 08/11/2022 7:33 AM EST HISTORY: [...] Electronically authenticated by: ILA GALLEGO Date: 2022-08-11 08:38NormTuscarawas HospitalCovid-19 PCR (CVDTB)on 35-54-4098JURT-CoV-2 (COVID-19) RNA SAVANNAH+probe Ql (Unsp spec)Not detectedNormalNOT DETECTEDMer[facility] Health [facility] Comment on above:Result Comment: When diagnostic testing is negative, the [...] for this test is supported by the Supervisor Lace Tearing of Health and Human Service's declaration that circumstances exist to justify the emergency use of in vitro diagnostics for the detection and/or diagnosis of the virus that causes COVID-19. This EUA will remain in effect for the duration of the COVID-19 declaration justifying emergency of IVDs, unless it is terminated or revoked by the FDA (after which the test may no longer be used).Performed By: #### TSH, LIPID, T4, FT3, CMP #### [facility] [address] [place] [address] Dr. Alicia Lucero URINE PROFILEon 03-43-6589Lsmryukhs Ql (U)NegativeNormal NEGATIVESumma Health [facility] Campus on above:Performed By: #### TSH, LIPID, T4, FT3, CMP #### [facility] [address] [place] [address] Dr. Alicia Wang (U)CLEARNormalCLEARSumma Health Barberton Campus on above: Performed By: #### TSH, LIPID, T4, FT3, CMP #### [facility] [address] [place] [address] Dr. Alicia Perera (U)LT. YELLOWNormalYELLOWSumma Health Barberton Campus on above:Performed By: #### TSH, LIPID, T4, FT3, CMP #### [facility] [address] [address] [address] Alicia Santo micrscopic examination will be performed if indicated. NormalChildren's Hospital of Columbusment on above:Performed By: #### TSH, LIPID, T4, FT3, CMP #### [facility] [address] [address] [address] Alicia PatelGlucose Ql (U)NegativeNormalNEGATIVEMercy Health – The Jewish HospitalComment on above:Performed By: #### TSH, LIPID, T4, FT3, CMP #### [facility] [address] [address] [address] Alicia PatelHemoglobin Ql (U)SMALLAbnormalNEGATIVEAultman Hospital on above:Performed By: #### TSH, LIPID, T4, FT3, CMP #### [facility] [address] [address] [address] Alicia PatelKetones Ql (U)NegativeNormalNEGATIVEMercy Health – The Jewish HospitalComment on above:Performed By: #### TSH, LIPID, T4, FT3, CMP #### [facility] [address] [address] [address] Alicia PatelLEUKOCYTESNegativeNormalNEGATIVESumma Health [facility] Campus on above:Performed By: #### TSH, LIPID, T4, FT3, CMP #### [facility] [address] [address] [address] Alicia PatelNitrite Ql (U)NegativeNormalNEGATIVEMercy Health – The Jewish HospitalComment on above:Performed By: #### TSH, LIPID, T4, FT3, CMP #### [facility] [address] [address] [address] Alicia PatelpH (U)6.0 [pH]Normal5-9[facility] HospitalComveterans affairs [facility] on above: Performed By: #### TSH, LIPID, T4, FT3, CMP #### [facility] [address] [address] [address] Alicia PatelProtein (U) [Mass/Vol]100 mg/dLAbnormalNEGATIVE/ TRACEThe [facility] HospitalComment on above:Performed By: #### TSH, LIPID, T4, FT3, CMP #### [facility] [address] [place] [address] Dr. Alicia PatelSPEC GRAVITY1.270Bjjpwl9.005-<=1.025The [facility] HospitalComment on above:Performed By: #### TSH, LIPID, T4, FT3, CMP #### [facility] [address] [address] [address] Alicia Nj MICRO INDINDICATEDUK HealthcareComment on above: Performed By: #### TSH, LIPID, T4, FT3, CMP #### [facility] [address] [place] [address] Dr. Alicia Gilmangen Qn (U)0.2 {Wil'U}/dLNormal0.2 - 1.0The [facility] HospitalComment on above:Performed By: #### TSH, LIPID, T4, FT3, CMP #### [facility] [address] [place] [address] Dr. Alicia Carroll B virus surface Ag [Presence] in Serum or Plasma by ImmunoassayOrdered By: Alicia León on 52-40-8957LKU surface Ag IA QlNegative NegativeHocking Valley Community HospitalHeuniversity of kentucky children's hospitaltis C virus IgG Ab [Presence] in Serum or Plasma by ImmunoassayOrdered By: Alicia León on 71-29-8360BSL IgG IA Ql Non-ReactiveNon ReactiveHocking Valley Community HospitalHeuniversity of kentucky children's hospitaltis C virus RNA [Units/volume] (viral load) in Serum or Plasma by SAVANNAH with probOrdered By: Alicia León on 76-74-9664NER RNA SAVANNAH+probe QnN/AFGreen Cross Hospital Hepatitis C virus RNA [log units/volume] (viral load) in Serum or Plasma by SAVANNAH withOrdered By: Alicia León on 65-96-6437UDM RNA SAVANNAH+probe [Log units/Vol]N/A [facility] HospitalLaboratory - CoagulationOrdered By: Hiral Interiano on 62-80-8848BW Coag (PPP) [Time]12.2 s9.0-12.9[facility] HospitalLymphocytes/100 WBC Manual cnt (Bld)Ordered By: Hiral Interiano on 47-90-3478Uosjkefsihr/100 WBC (Bld)5 %18-42[facility] Microcytes LM Ql (Bld)Ordered By: Hiral Interiano on 79-60-3036Zdtsazcycf Ql (Bld) SlightHocking Valley Community HospitalMonocytes/100 WBC Manual cnt (Bld)Ordered By: Hiral Interiano on 08-87-4941Cdmltnsis/100 WBC (Bld)1 %2-11[facility] HospitalNo Panel InformationOrdered By: Alicia León on 08-11-2022 Hepatitis A IgM AntibodyNegativeNegativeHocking Valley Community Hospital Hepatitis B Core IgM AntibodyNegativeNegativeHocking Valley [facility] Hospital Hepatitis C InterpretationSee comment.[facility] HospitalComment on above:Not infected with HCV unless early or acute infection issuspected (which may be delayed in an immunocompromisedindividual), or other evidence exists to indicate HCVinfection.Performed at: [facility] [place] [id number] Director: Lee Bob PhD, Phone: [phone] Hepatitis C RNA QuantitativeN/[facility] HospitalPOINT OF CARE GLUCOSEon 49-37-5366Ojhrbdy [Mass/Vol]132 mg/dLCritically xphb83-191JhdMercy Health – The Jewish HospitalComment on above:Performed By: #### TSH, LIPID, T4, FT3, CMP #### [facility] [address] [address] [address] Alicia PatelGlucose [Mass/Vol]117 mg/dLCritically mrvo35-918MgbMercy Health – The Jewish HospitalComment on above:Performed By: #### TSH, LIPID, T4, FT3, CMP #### [facility] [address] [address] [address] Alicia PatelGlucose [Mass/Vol]95 mg/vBKbnohg45-678BbfMercy Health – The Jewish Hospital Comment on above:Performed By: #### POCGLUC #### [facility] [address] [address] [address] Alicia HurdF CHEM 8 (BAS METB)on 53-19-4179Wpaom gap [Moles/Vol]29.5 mmol/LNormalThe [facility] HospitalComment on above:Performed By: #### TSH, LIPID, T4, FT3, CMP #### [facility] [address] [place] [address] Dr. Alicia PatelCalcium [Mass/Vol]7.7 mg/dLCritically low8.5-10.1The [facility] HospitalComment on above:Performed By: #### TSH, LIPID, T4, FT3, CMP #### [facility] [address] [address] Dr. Alicia PatelChloride [Moles/Vol]102 mmol/JFbbvvt42-212Stw [facility] Comment on above:Performed By: #### TSH, LIPID, T4, FT3, CMP #### [facility] [address] [address] Dr. Alicia PatelCO2 [Moles/Vol]13.5 mmol/LCritically low21.0-32.0The [facility] HospitalComment on above:Performed By: #### TSH, LIPID, T4, FT3, CMP #### [facility] [address] [address] Dr. Alicia PatelCreatinine [Mass/Vol]17.89 mg/dLCritically high0.70-1.30The [facility] HospitalComment on above:Performed By: #### TSH, LIPID, T4, FT3, CMP #### [facility] [address] [place] [address] Dr. Alicia DunnGFR-AF AMERICAN3 mL/min/1.96j5Rxpayliqjn low>=60The [facility] HospitalComment on above:Performed By: #### TSH, LIPID, T4, FT3, CMP #### [facility] [address] [place] [address] Dr. Alicia DunnGFR-NON AF AMERICAN3 mL/min/1.54s0Iwzwwgkgxb low>=60The [facility] HospitalComment on above:Performed By: #### TSH, LIPID, T4, FT3, CMP #### [facility] [address] [address] [address] Alicia PatelGlucose [Mass/Vol]105 mg/sQTotvhk45-429LtxMercy Health – The Jewish Hospital Comment on above:Performed By: #### TSH, LIPID, T4, FT3, CMP #### [facility] [address] [address] [address] Alicia PatelPotassium [Moles/Vol]7.0 mmol/LCritically high3.5-5.1The [facility] HospitalComment on above:Performed By: #### TSH, LIPID, T4, FT3, CMP #### [facility] [address] [address] [address] Alicia PatelSodium [Moles/Vol]138 mmol/ROecbge342-705Svw [facility] Comment on above:Performed By: #### TSH, LIPID, T4, FT3, CMP #### [facility] [address] [address] [address] Alicia PatelUrea nitrogen [Mass/Vol]156.0 mg/dLCritically high7.0-18.0The [facility] HospitalComment on above:Performed By: #### TSH, LIPID, T4, FT3, CMP #### [facility] [address] [address] [address] Alicia Nguyễn nitrogen/Creatinine [Mass ratio]8.7 mg/mgNormalThe [facility] HospitalComment on above:Performed By: #### TSH, LIPID, T4, FT3, CMP #### [facility] [address] [place] [address] Dr. Alicia PatelPlatelet adequacy [Presence] in Blood by Light microscopyOrdered By: Hiral Interiano on 68-21-8417Zxtnvlglq LM Ql (Bld)The Christ HospitalPlatelet morphology finding [Identifier] in BloodOrdered By: Hiral Interiano on 01-81-1243Xgsqeysr morphology finding Nom (Bld)[facility] HospitalPlatelet poor plasma international normalized ratio (INR) by coagulation assay (relatOrdered By: Hiral Interiano on 08-11-2022 INR Coag (PPP) [Relative time]1.0 {INR}[facility] HospitalComment on above:INR Therapeutic Range A) Pre- and Peroperative OAT started two weeks before surgery. NOT HIP SURGERY: 1.5 - 2.5 HIP SURGERY: 2 - 3B) Primary and secondary prevention of venous THROMBOSIS: 2 - 3C) Active venous thrombosis, pulmonary embolismand prevention of recurrent venous thrombosis: 2 - 3D) Preve ntion of arterial thromboembolismincluding patients with mechanical heart valves: 3 - 4.5Poikilocytosis [Presence] in Blood by Light microscopyOrdered By: Hiral Interiano on 98-62-4715Friymhpudepufd LM Ql (Bld)SlightHocking Valley Community HospitalRBC morphologyOrdered By: Hiral Interiano on 80-50-2498TLV morphology finding Nom (Bld)N/AFLouis Stokes Cleveland VA Medical Centeregmented neutrophils/100 WBC Manual cnt (Bld)Ordered By: Hiral Interiano on 08-11-2022 Segmented neutrophils/100 WBC (Bld)94 %50-70[facility] Troponin I.cardiac [Mass/volume] in Serum or Plasma by High sensitivity method Ordered By: Hiral Interiano on 77-80-4925Nlbgggue I.cardiac High sensitivity method [Mass/Vol]42 pg/mL0-20[facility] HospitalURINE MICROSCOPIC ONLYon 49-32-7021DQOSLDWVYBJGZBcskzkoyOQHN SEENMercy Health – The Jewish HospitalComment on above:Performed By: #### TSH, LIPID, T4, FT3, CMP #### [facility] [address] [address] [address] Alicia Perea identified Cx Nom (U)NOT INDICATEDNoToledo HospitalComment on above:Performed By: #### TSH, LIPID, T4, FT3, CMP #### [facility] [address] [address] [address] Alicia Pruett SEENNormalNONE SEENMercy Health – The Jewish HospitalComment on above:Performed By: #### TSH, LIPID, T4, FT3, CMP #### [facility] [address] [address] [address] Alicia PatelCrystals LM Nom (Urine sed)NONE SEENNormalNONE SEENSumma Health Barberton Campus on above:Performed By: #### TSH, LIPID, T4, FT3, CMP #### [facility] [address] [address] [address] Vargas ChangEpithelial cells LM Ql (Urine sed)RARENormalNONE SEEN /RAREThe [facility] HospitalComveterans affairs [facility] on above:Performed By: #### TSH, LIPID, T4, FT3, CMP #### [facility] [address] [address] [address] Alicia PatelMUCOUSNONE SEENNormalNONE SEENSumma Health Barberton Campus on above:Performed By: #### TSH, LIPID, T4, FT3, CMP #### [facility] [address] [place] [address] Dr. Alicia PatelPcxpgTUN6-5Drtspnyz6-4Qlz [facility] on above:Performed By: #### TSH, LIPID, T4, FT3, CMP #### [facility] [address] [place] [address] Dr. Alicia PatelWBC2-5AbnormalNONE SEENSumma Health Barberton Campus on above: Performed By: #### TSH, LIPID, T4, FT3, CMP #### [facility] [address] [place] [address] Dr. Alicia PatelXR CHEST 1 Von 15-08-6425HX CHEST 1 VEXAM: XR CHEST 1 V HISTORY: SHORTNESS OF [...] Electronically authenticated by: YOGESH BYERS Date: 2022-08-11 04:27NoToledo HospitalCovid-19 PCR (CVDTBH)on 70-62-3185KOOI-CoV-2 (COVID-19) RNA SAVANNAH+probe Ql (Unsp spec)Not detectedNormalNOT DETECTEDThe [facility] Comment on above:Result Comment: This test is not yet approved or cleared by the [place] FDA. When there are no FDA-approved or cleared tests available, and other criteria are met, FDA can make tests available under an emergency access mechanism called an Emergency Use Authorization (EUA). The EUA for this test is supported by the [place] of Health and Human Service's (HHS's) declaration that circumstances exist to justify the emergency use of in vitro diagnostics for the detection and/or diagnosis of the virus that causes COVID- 19. This EUA will remain in effect (meaning [...] of clinical signs and symptoms consistent with SARS-CoV-2.Performed By: #### TSH, LIPID, T4, FT3, CMP #### [facility] [address] [place] [address] Dr. Alicia RyderNZA A AND B AGon 62-22-3941QFFZGWLGSMXOTWilson Street HospitalComment on above:Result Comment: Negative for Flu A protein angiten. Infection due to Flu A cannot be ruled out. FluA angiten in the sample may be below the detection limit of the test.Performed By: #### TSH, LIPID, T4, FT3, CMP #### [facility] [address] [address] Dr. Alicia PatelINFLUBNEGCleveland Clinic Hillcrest Hospital on above: Result Comment: Negative for Flu B protein antigen. Infection due to Flu B cannot be ruled out. FluB antigen in the sample may be below the detection limit of the test.Performed By: #### TSH, LIPID, T4, FT3, CMP #### [facility] [address] [place] [address] Dr. Alicia Khanna AGNegativeNormalNEGATIVE SEE COMMENTThe [facility] on above:Performed By: #### TSH, LIPID, T4, FT3, CMP #### [facility] [address] [address] Dr. Alicia Gutierrez AGNegativeNormalNEGATIVE SEE COMMENTThe [facility] on above:Performed By: #### TSH, LIPID, T4, FT3, CMP #### [facility] [address] [place] [address] Dr. Alicia Jo INTACTon 25-81-1577YAK, Kdnpyz75 pg/fSZfbnkq93-08Bqz [facility] Jewish Hospitalment on above:Performed By: #### TSH, LIPID, T4, FT3, CMP #### [facility] [address] [place] [address] Dr. Alicia PatelALBUMINvic 45-55-7526Veekemu [Mass/Vol]3.9 g/dLNormal3.4-5.0The [facility] Jewish Hospitalment on above:Performed By: #### TSH, LIPID, T4, FT3, CMP #### [facility] [address] [place] [address] Dr. Alicia PatelHEMOGRAM AND PLATELon 23-15-3221Vsmbsdlynu (Bld) [Volume fraction]42.1 %Lhwbth63.0-54.0The [facility] Jewish Hospitalment on above:Performed By: #### TSH, LIPID, T4, FT3, CMP #### [facility] [address] [place] [address] Dr. Alicia PatelHemoglobin (Bld) [Mass/Vol]14.7 g/dBUznlrd34.0-18.0The [facility] Jewish Hospitalment on above:Performed By: #### TSH, LIPID, T4, FT3, CMP #### [facility] [address] [place] [address] Dr. Alicia Madrigal (RBC) [Entitic mass]33.2 tvTciadt30.9-34.0The [facility] HospitalComment on above:Performed By: #### TSH, LIPID, T4, FT3, CMP #### [facility] [address] [place] [address] Dr. Alicia Nixon (RBC) [Mass/Vol]34.9 g/aNWsspss20.9-35.2The [facility] HospitalComment on above:Performed By: #### TSH, LIPID, T4, FT3, CMP #### [facility] [address] [place] [address] Dr. Alicia PatelCIMARRON [facility] [place] (RBC) [Entitic vol]95.0 fLCritically high80.0-94.0The [facility] HospitalComment on above:Performed By: #### TSH, LIPID, T4, FT3, CMP #### [facility] [address] [place] [address] Dr. Alicia PatelPLT190 103/vgLjyzlx723-905Fcl [facility] HospitalComment on above: Performed By: #### TSH, LIPID, T4, FT3, CMP #### [facility] [address] [place] [address] Dr. Alicia PatelRBC4.43 106/ulCritically low4.70-6.10The [facility] HospitalComveterans affairs [facility] system on above:Performed By: #### TSH, LIPID, T4, FT3, CMP #### [facility] [address] [place] [address] Dr. Alicia PatelWBC7.0 103/ulNormal4.0-11.0The [facility] HospitalComment on above: Performed By: #### TSH, LIPID, T4, FT3, CMP #### [facility] [address] [place] [address] Dr. Alicia PatelMAGNESIUMon 26-54-5742Yljtydyyp [Mass/Vol]1.7 mg/dLCritically low 1.8-2.4The [facility] HospitalComment on above:Performed By: #### TSH, LIPID, T4, FT3, CMP #### [facility] [address] [place] [address] Dr. Alicia PatelPHOSPHORUSon 99-59-4566Acazaoaxc [Mass/Vol]3.7 mg/dLNormal2.6-4.7 The [facility] HospitalComment on above:Performed By: #### TSH, LIPID, T4, FT3, CMP #### [facility] [address] [address] [address] Alicia PatelPROF CHEM 8 (BAS METB)on 81-38-5241Icmkn gap [Moles/Vol]11.2 mmol/LNormalThe [facility] HospitalComment on above:Performed By: #### URTPCR #### [facility] [address] [place] [address] Dr. Alicia PatelCalcium [Mass/Vol]9.1 mg/dLNormal8.5-10.1The [facility] Comment on above:Performed By: #### URTPCR #### [facility] [address] [place] [address] Dr. Alicia PatelChloride [Moles/Vol]104 mmol/INwrkbh47-938Zfx [facility] Comment on above:Performed By: #### URTPCR #### [facility] [address] [place] [address] Dr. Alicia PatelCO2 [Moles/Vol]29.2 mmol/RIjhfxp39.0-32.0The [facility] Comment on above:Performed By: #### URTPCR #### [facility] [address] [place] [address] Dr. Alicia PatelCreatinine [Mass/Vol]1.40 mg/dLCritically high0.70-1.30The [facility] HospitalComment on above:Performed By: #### URTPCR #### [facility] [address] [place] [address] Dr. Alciia DunnGFR-AF GOHLUYUO99 mL/min/1.57e8Yjhjteakmn low>=60The [facility] HospitalComment on above:Performed By: #### URTPCR #### [facility] [address] [place] [address] Dr. Alicia DunnGFR-NON AF TWEJYBVW46 mL/min/1.91h5Xejecsvfsa low>=60The [facility] HospitalComment on above:Performed By: #### URTPCR #### [facility] [address] [place] [address] Dr. Alicia PatelGlucose [Mass/Vol]148 mg/dLCritically tjyi54-834Rzz [facility] HospitalComment on above:Performed By: #### URTPCR #### [facility] [address] [place] [address] Dr. Alicia PatelPotassium [Moles/Vol]4.4 mmol/LNormal3.5-5.1[facility] Comment on above:Performed By: #### URTPCR #### [facility] [address] [place] [address] Dr. Alicia PatelSodium [Moles/Vol]140 mmol/PJbownt349-382Tih [facility] Comment on above:Performed By: #### URTPCR #### [facility] [address] [place] [address] Dr. Alicia PatelUrea nitrogen [Mass/Vol]16.0 mg/dLNormal7.0-18.0The [facility] HospitalComment on above:Performed By: #### URTPCR #### [facility] [address] [place] [address] Dr. Alicia Nguyễn nitrogen/Creatinine [Mass ratio]11.4 mg/mgNormalThe [facility] HospitalComment on above:Performed By: #### URTPCR #### [facility] [address] [place] [address] Dr. Alicia Mathew RANDOM W/MICROSCOPICon 57-17-6742ALXMTERUMBEF SEENNormalNONE SEENMercy Health – The Jewish HospitalComment on above:Performed By: #### TSH, LIPID, T4, FT3, CMP #### [facility] [address] [place] [address] Dr. Alicia PatelBilirubin Ql (U)NegativeNormalNEGATIVEThe [facility] Comment on above:Performed By: #### TSH, LIPID, T4, FT3, CMP #### [facility] [address] [address] [address] Alicia Pruett SEENNormalNONE SEENSumma Health Barberton Campus on above:Performed By: #### TSH, LIPID, T4, FT3, CMP #### [facility] [address] [address] [address] Alicia Brizuelaarity (U)CLEARNormalCLEARMercy Health – The Jewish HospitalComment on above: Performed By: #### TSH, LIPID, T4, FT3, CMP #### [facility] [address] [address] [address] Alicia Perera (U)LT. YELLOWNormalYELLOWMercy Health – The Jewish HospitalComveterans affairs [facility] system on above:Performed By: #### TSH, LIPID, T4, FT3, CMP #### [facility] [address] [address] [address] Alicia PatelCrystals LM Nom (Urine sed)NONE SEENNormalNONE SEENMercy Health – The Jewish HospitalComment on above:Performed By: #### TSH, LIPID, T4, FT3, CMP #### [facility] [address] [address] [address] Vargas ChangEpithelial cells LM Ql (Urine sed)FEWAbnormalNONE SEEN /RARESumma Health Barberton Campus on above:Performed By: #### TSH, LIPID, T4, FT3, CMP #### [facility] [address] [address] [address] Alicia PatelGlucose Ql (U)NegativeNormalNEGATIVEChildren's Hospital of Columbusment on above:Performed By: #### TSH, LIPID, T4, FT3, CMP #### [facility] [address] [address] [address] Alicia PatelHemoglobin Ql (U)NegativeNormalNEGATIVEAultman Hospital on above:Performed By: #### TSH, LIPID, T4, FT3, CMP #### [facility] [address] [address] [address] Alicia PatelKetones Ql (U)NegativeNormalNEGATIVEMercy Health – The Jewish HospitalComment on above:Performed By: #### TSH, LIPID, T4, FT3, CMP #### [facility] [address] [address] [address] Alicia PatelLEUKOCYTESNegativeNormalNEGATIVEThe [facility] Hospitalment on above:Performed By: #### TSH, LIPID, T4, FT3, CMP #### [facility] [address] [address] [address] Alicia RuggieroCOUSNONEssence SEENNormalNONE SEENThe [facility] HospitalComment on above:Performed By: #### TSH, LIPID, T4, FT3, CMP #### [facility] [address] [address] [address] Alicia Porter Ql (U)NegativeNormalNEGATIVEThe [facility] HospitalComment on above:Performed By: #### TSH, LIPID, T4, FT3, CMP #### [facility] [address] [place] [address] Dr. Alicia PatelpH (U)5.5 [pH]Normal5-9The [facility] Jewish Hospitalment on above: Performed By: #### TSH, LIPID, T4, FT3, CMP #### [facility] [address] [address] [address] Alciia PatelRBCNDANIELA SEENAbnormal0-2The [facility] on above: Performed By: #### TSH, LIPID, T4, FT3, CMP #### [facility] [address] [address] [address] Alicia PatelSPEC GRAVITY1.133Owlrma9.005-<=1.025The [facility] on above:Performed By: #### TSH, LIPID, T4, FT3, CMP #### [facility] [address] [address] [address] Alicia Mathew PROTEINNegativeNormalNEGATIVE/ TRACEThe [facility] Comment on above:Performed By: #### TSH, LIPID, T4, FT3, CMP #### [facility] [address] [address] [address] Alicia Baxter Qn (U)0.2 {Wil'U}/dLNormal0.2 - 1.0The [facility] HospitalComment on above:Performed By: #### TSH, LIPID, T4, FT3, CMP #### [facility] [address] [address] [address] Alicia Sánchez SEENNormalNONE SEENThe [facility] HospitalComment on above: Performed By: #### TSH, LIPID, T4, FT3, CMP #### [facility] [address] [address] [address] Alicia PatelURIC ACID SERUMon 47-12-9080Auqfk [Mass/Vol]5.6 mg/dLNormal 3.5-7.2The [facility] HospitalComment on above:Performed By: #### TSH, LIPID, T4, FT3, CMP #### [facility] [address] [address] Dr. Alicia Friend T PROTEIN CREAT RATIOon 30-15-9909Bjtzsxu (U) [Mass/Vol] 26.0 mg/dLCritically high<=12.0The [facility] HospitalComment on above:Performed By: #### TSH, LIPID, T4, FT3, CMP #### [facility] [address] [place] [address] Dr. Alicia Nj PROT CREAT RAT0.34NormalThe [facility] HospitalComment on above: Performed By: #### TSH, LIPID, T4, FT3, CMP #### [facility] [address] [place] [address] Dr. Alicia Friend CREAT77.39 mg/vNDnmhnq04.00-300.00The [facility] Comment on above:Performed By: #### TSH, LIPID, T4, FT3, CMP #### [facility] [address] [place] [address] Dr. Alicia Patel Vital Signs Date TimeVital SignValuePerforming YfbluqpwuUpslbeth52-54-1717 14:15-0400Body xcwaub611.8 cmHocking Valley Community Hospital06-09-2025 14:150400Body mass index (BMI) [Ratio]40.3 kg/d4XqbiggwmlHocking Valley Community Hospital06-09-2025 14:15-0400Body .45 kgHocking Valley Community Hospital06-09-2025 14:15-0400Diastolic blood llepvclr97 mm[Hg][facility] 12-03-2024 14:15-0400Heart rate81 /[facility] 12-03-2024 14:15-0400Respiratory rate18 /[facility] 12-03-2024 14:15-5303SgM4% (BldA) [Mass fraction]95 %[facility]06-09-2025 14:15-0400Systolic blood mm[Hg][facility]12-17-2024 11:27-0500Blood Pressure LocationNi [email or web address] [facility] [place] 844882-17-2024 11:27-0500Diastolic blood usnfjuck52 mm[Hg]Ni [employer] [facility] [place] 844882-17-2024 11:27-0500Heart rate62 /minNi [employer] [facility] [place] 844882-17-2024 11:27-0500Systolic blood mm[Hg]Ni [employer] [facility]06-25-2024 11:49-0400Body byavbp294.26 cmMD Jose Alfaro Work Phone: [facility]06-25-2024 11:49-0400 Body mass index (BMI) [Ratio]39.4 kg/m2MD Jose Alfaro Work Phone: [facility]06-25-2024 11:49-0400 Body .5 [degF]MD Jose Alfaro Work Phone: [facility]06-25-2024 11:49-0400 Body ohadob412.33 kgMD Jose Dustinnissa Work Phone: [phone] [place], [place] 7664206-25-2024 11:49-0400 Diastolic blood hcryrpfy07 mm[Hg]MD Jose Alfaro Work Phone: [phone] [place], [place] 7664206-25-2024 11:49-0400 Heart rate83 /minMD Jose Dustinnissa Work Phone: [phone] [place], [place] 7664206-25-2024 11:49-0400 Respiratory rate20 /minMD Jose Alfaro Work Phone: [phone]06-25-2024 11:49-0400 SaO2% (BldA) [Mass fraction]94 %MD Jose Alfaro Work Phone: [phone]06-25-2024 11:49-0400 Systolic blood ikooqihy890 mm[Hg]MD Jose Alfaro Work Phone: [phone] [place], [place] 7664212-19-2023 11:00-0500 Body dsxuex282.26 cmAbdul Brit Other [employer] Other [id number] 11:00-0500Body mass index (BMI) [Ratio] 38.51 kg/m8Uivsr Brit Other [employer] Other 12-19-2023 11:00-0500Body pdyhfrjdlhl27.2 [degF]Alicia Brit Other [employer] Other 12-19-2023 11:00-0500Body fedoan523.3 kgAbdul Brit Other [employer] Other 12-19-2023 11:00-0500Diastolic blood kgowuejc79 mm[Hg] Alicia Brit Other [employer] Other 12-19-2023 11:00-0500Respiratory rate18 /minAbdul Brit Other [employer] Other 12-19-2023 11:00-2734OnC6% (BldA) [Mass fraction]95 % Alicia Brit Other [employer] Other 12-19-2023 11:00-0500Systolic blood gcvkazzp712 mm[Hg] Alicia Brit Other [employer] Other 06-05-2023 10:20-0400Body .26 cmAbdul Brit [facility] Other 06-05-2023 10:20-0400Body mass index (BMI) [Ratio] 36.77 kg/n9Whxgy Brit Other [employer] Other 06-05-2023 10:20-0400Body .3 [degF]Alicia Brit Other [employer] Other 06-05-2023 10:20-0400Body rreolb859.95 kgAbdul Brit Other [employer] Other 06-05-2023 10:20-0400Diastolic blood mlfdkdac28 mm[Hg] Alicia Brit Other [employer] Other 06-05-2023 10:20-0400Respiratory rate18 /minAbdul Brit Other [employer] Other 06-05-2023 10:20-5111MgV7% (BldA) [Mass fraction]96 % Alicia [facility] Other [id number] 10:20-0400Systolic blood mm[Hg] Alicia Brit [facility] [employer] Other 002607-19-4665 17:25-0400Heart rate66 /minNi [employer] [facility]04-13-2023 17:25-3449LpO1% (BldA) [Mass fraction]92 %Ni OLIVARES [facility]04-13-2023 17:25-0400 Respiratory rate16 /minNi [employer] [facility]04-13-2023 17:24-0400Body ujvokjqgpyr05.7 [degF]Ni OLIVARES [facility]04-13-2023 17:24-0400 Diastolic blood himpbuba61 mm[Hg]Ni OLIVARES [facility]04-13-2023 17:24-0400Mean blood mm[Hg]Ni OLIVARES [facility]04-13-2023 17:24-0400 Systolic blood doszlfdp652 mm[Hg]Ni OLIVARES [facility]04-13-2023 16:18-0400Heart rate61 /minNi OLIVARES [facility]04-13-2023 16:18-7457VcU5% (BldA) [Mass fraction]95 %Ni OLIVARES [facility]04-13-2023 16:17-0400 Diastolic blood dvrnumev40 mm[Hg]Ni OLIVARES [facility]04-13-2023 16:17-0400Mean blood cpausdyq575 mm[Hg]Ni OLIVARES [facility]04-13-2023 16:17-0400 Systolic blood mm[Hg]Ni OLIVARES [facility]04-13-2023 16:17-0400 Respiratory rate16 /minNi OLIVARES [facility]04-13-2023 16:11-0400 Diastolic blood giwxozql95 mm[Hg]Ni OLIVARES [facility]04-13-2023 16:11-0400Heart rate58 /minNi OLIVARES [facility]04-13-2023 16:11-0400Mean blood lrsgmsru30 mm[Hg]Ni OLIVARES [facility]04-13-2023 16:11-0400 Respiratory rate17 /minNi OLIVARES [facility]04-13-2023 16:11-8674JsY7% (BldA) [Mass fraction]97 %Ni OLIVARES [facility]04-13-2023 16:11-0400 Systolic blood tynsxnhz995 mm[Hg]Ni OLIVARES [facility]04-13-2023 16:00-0400Mean blood xatpvmoi70 mm[Hg]Ni OLIVARES [facility]04-13-2023 16:00-0400 Respiratory rate13 /minNi OLIVARES [facility]04-13-2023 15:55-0400Mean blood kbomkjnk59 mm[Hg]Ni OLIVARES [address] [place], [place] 0072504-13-2023 15:55-0400 Respiratory rate17 /minNi [employer] [facility]04-13-2023 15:46-0400Body vjvemwokwlj10.06 [degF]Ni OLIVARES [facility]04-13-2023 15:40-0400 Respiratory rate15 /minNi [employer] [facility]04-13-2023 10:14-0400Mean blood gfgegkit93 mm[Hg]Ni [employer] [facility]04-13-2023 10:14-0400Blood Pressure LocationNi [employer] [facility]04-13-2023 10:13-0400Heart rate64 /minNi [employer] [facility]04-13-2023 10:12-0400Body buqhujvqcoe53.06 [degF]Ni OLIVARES [facility]04-13-2023 10:12-0400Blood Pressure LocationNi [employer] [facility]03-22-2023 14:40-0400Body .26 cmAbdul Brit Other [facility] [employer] Other [id number] 14:40-0400Body mass index (BMI) [Ratio] 37.48 kg/r1Alfvg Brit Other [facility] [employer] Other [id number] 14:40-0400Body xzrneg286.12 kgAbdul Brit Other [facility] [facility] Other 03-22-2023 14:40-0400Diastolic blood zjxvoypm98 mm[Hg] Alicia Brit Other [facility] [employer] Other 03-22-2023 14:40-0400Respiratory rate18 /minAbdul Brit Other [facility] Other 03-22-2023 14:40-0483PoX7% (BldA) [Mass fraction]97 % Alicia Brit Other [facility] Other 03-22-2023 14:40-0400Systolic blood twkmgjgo740 mm[Hg] Alicia Brit Other [facility] [facility] Other 03-13-2023 10:01-0400Blood Pressure LocationNi [employer] [facility]03-13-2023 10:01-0400Diastolic blood vhteajzo99 mm[Hg]Ni [employer] [facility]03-13-2023 10:01-0400Heart rate68 /minNi [employer] [facility]03-13-2023 10:01-0400Systolic blood mm[Hg]Ni [employer] [facility]02-19-2023 12:16-0500Body ediamsmgqdl21.8 [degF]MD Jose Alfaro Work Phone: [facility]02-19-2023 12:16-0500 Diastolic blood lzmhauot10 mm[Hg]MD Jose Alfaro Work Phone: [facility]02-19-2023 12:16-0500 Heart rate68 /minMD Jose Alfaro Work Phone: 1(548)399-[address] [place], [place] 7664202-19-2023 12:16-0500 Respiratory rate18 /minMD Jose Alfaro Work Phone: 2(597)864-[address] [place], [place] 7664202-19-2023 12:16-0500 SaO2% (BldA) [Mass fraction]95 % Jose Channissa Work Phone: 1(179)[address]02-19-2023 12:16-0500 Systolic blood dfmsczyk205 mm[Hg] Jose Dustinnissa Work Phone: 1(781)[address] [place], [place] 7165102-19-2023 05:08-0500 Body .2 kgMD Jose Alfaro Work Phone: 1(934)[address] [place], [place] 7165102-17-2023 13:10-0500 Inhaled oxygen flow rate8 L/minMD Jose Alfaro Work Phone: 1(390)[address] [place], [place] 7165102-17-2023 11:54-0500 Body lqqnud929.8 cmMD Jose Alfaro Work Phone: 1(813)[address] [place], [place] 7165102-17-2023 11:54-0500 Body mass index (BMI) [Ratio]37.3 kg/m2MD Jose Alfaro Work Phone: 3(195)[address] [place], [place] 7165112-06-2022 11:40-0500 Body ymvbil896.26 cmAbdul Brit Other [facility] Other 12-06-2022 11:40-0500Body mass index (BMI) [Ratio] 37.77 kg/x8Lkhps Brit Other [facility] Other 12-06-2022 11:40-0500Body aqdrjnrphwz26.5 [degF]Alicia Brit Other [place] [facility] Other 12-06-2022 11:40-0500Body jablsd294.03 kgAbdul Brit Other [employer] Other 12-06-2022 11:40-0500Diastolic blood rtwuovef86 mm[Hg] Alicia Brit Other [employer] Other 12-06-2022 11:40-0500Respiratory rate18 /minAbdul Brit Other [employer] Other 12-06-2022 11:40-5514RlN1% (BldA) [Mass fraction]93 % Alicia Brit Other [employer] Other 12-06-2022 11:40-0500Systolic blood kavapzcz224 mm[Hg] Alicia Brit Other [employer] Other 05-31-2022 11:20-0400Body .26 cmAbdul Brit Other [employer] Other 05-31-2022 11:20-0400Body mass index (BMI) [Ratio] 36.26 kg/a4Zqikd Brit Other [employer] Other 05-31-2022 11:20-0400Body oggjyrftggc15.4 [degF]Alicia Brit Other [employer] Other 05-31-2022 11:20-0400Body aesdgv504.4 kgAbdul Brit Other [employer] Other 05-31-2022 11:20-0400Diastolic blood qzfffyrx12 mm[Hg] Alicia Brit Other [employer] Other 05-31-2022 11:20-0400Respiratory rate18 /minAbdul Brit Other [facility] Other 05-31-2022 11:20-9079DuC7% (BldA) [Mass fraction]95 % Alicia Brit Other [facility] Other 05-31-2022 11:20-0400Systolic blood iypisuiv730 mm[Hg] Alicia Brit Other [facility] Other 05-02-2022 09:17-0400Blood Pressure LocationPaLightning Gaming [facility] 05-02-2022 09:17-0400Diastolic blood mm[Hg] [employer] [facility] 05-02-2022 09:17-0400Heart rate64 /minPatrick Podotree [facility] 05-02-2022 09:17-0400Respiratory rate16 /minPatricEzra Innovations [facility] 05-02-2022 09:17-0400Systolic blood sgdnqybw071 mm[Hg] [employer] [facility] 11-30-2021 11:00-0500Body meugcj532.26 cmAbdul Brit Other [facility] Other 11-30-2021 11:00-0500Body mass index (BMI) [Ratio]34.4 kg/a4Csdzh Brit Other [place] [facility] Other 11-30-2021 11:00-0500Body yinaprlagwk99.9 [degF]Alicia Brit Other [place] [facility] Other 11-30-2021 11:00-0500Body wpnigc633.69 kgAbdul Brit Other [employer] Other 11-30-2021 11:00-0500Diastolic blood tleyfxth09 mm[Hg] Alicia Brit Other [place] [facility] Other 11-30-2021 11:00-0500Respiratory rate18 /minAbdul Brit Other [place] [facility] Other 11-30-2021 11:00-0311UxV8% (BldA) [Mass fraction]94 % Alicia Brit Other [place] [facility] Other 11-30-2021 11:00-0500Systolic blood lxhgwyip092 mm[Hg] Alicia Brit Other [employer] Other Encounters Encounter DateEncounter TypeCare ProviderFacilityStart: 54-89-4416uwnuqiasdt Gregory P COOKFacility:JACOB SanduskyStart: 01-28-2025 End: 62-18-9490nzgqbpjvykIJUEES [facility] Start: 15-92-4175lceivmvkodVYTKNM [facility] Start: 12-27-2024 End: 12-34-0367jeldhgkpdvYZUCES [facility] Start: 12-24-2024 End: 94-15-4179ypuuloeuutMKGTGK [facility] Start: 12-10-2024 End: 45-73-3819tqkcrpwedyYrzhaoy P COOKFacility:FTMCStart: 12-10-2024 End: 58-21-6203Ccd Drop offGregory P CARLOS [facility] Start: 12-10-2024 End: 83-95-6739corshdlxhgEbyfjqj P COOKFacility:EU SanduskyStart: 12-10-2024 End: 35-70-6470Pmyspup encounter procedureGregory P CARLOS [facility] [place] Start: 12-03-2024 End: 33-93-2437ifdooxzjnpXxcxitvnzMedina Hospital Work Phone: Start: 12-03-2024 End: 90-79-9844Vcodbuc [facility]Nov[facility] Work Phone: Start: 80-37-4568Kni-patient / Non-visitNov[facility] Work Phone: Start: 06-12-2024 End: 69-25-7754gtkvqezfjmXupajcr P COOKFacility:EU [place]kyStart: 06-12-2024 End: 76-78-4860Kcyfxfn encounter procedureGregory P CARLOS [facility] Start: 05-21-2024 End: 94-33-6676qfwjvjulseALZHOS [facility] Start: 12-20-2023 End: 94-62-0451sjtuqnzdzlUN Jose Alfaro Work Phone: [facility] Work Phone: Start: 12-20-2023 End: 85-33-1920Lnfeyur encounter procedureMD Jose Alfaro Work Phone: [facility] Work Phone: Start: 55-37-5676Ldv-patient / Non-visitMD Jose Alfaro Work Phone: [facility] Work Phone: Start: 10-26-2023 End: 05-63-8253tyiukrylwbBPFV DUCKETTNot AvailableStart: 10-18-2023 End: 54-69-1625cdbplsybxqSH Jose Alfaro Work Phone: [facility] Work Phone: Start: 10-18-2023 End: 16-94-4954Pqrjfemc ReferredMD Jose Alfaro Work Phone: [facility] HospStart: 09-27-2023 End: 31-39-8692Eujfgkkoe Result EncounterKyle Jenny DO Other Phone: [facility]oms External Department UnsolicitedStart: 09-27-2023 End: 21-97-6786Jtpyoxeka Result EncounterKyle Jenny DO Other Phone: [facility] External Department UnsolicitedStart: 09-12-2023 Patient encounter statusKyle Jenny DO Other Phone: noms HealthcareStart: 09-12-2023 End: 04-15-1702vlqcqlbjovALKV DUCKETTNot AvailableStart: 07-29-2023 End: 90-57-4305Waztwfavm Result EncounterTesha PEDRAZA Work Phone: [facility] External Department UnsolicitedStart: 07-29-2023 End: 23-08-8440Kdncnhxvh Result EncounterTesha PEDRAZA Work Phone: [facility] External Department UnsolicitedStart: 07-02-2023 End: 46-28-5818Qooxztx encounter procedureMD Jose Hoy Work Phone: [facility] [address] [place] Work Phone: Start: 07-02-2023 End: 57-98-7603wtwwbmhjjaUO Jose M Hoy Work Phone: [facility] Work Phone: Start: 06-28-2023 End: 51-65-0667Oyxuiet encounter procedureMD Jose Hoy Work Phone: [facility] [address] [place] Work Phone: Start: 06-28-2023 End: 96-89-7980wnpsdibxqxXL Jose M Hoy Work Phone: [facility] Work Phone: Start: 06-16-2023 End: 41-23-1805Qjzrjjd encounter procedureMD Jose Hoy Work Phone: [facility]-Ultrasound [place] Work Phone: Start: 06-16-2023 End: 93-46-4709bebmmsvibfHL Jose M Hoy Work Phone: [facility] Work Phone: Start: 06-14-2023 End: 02-60-8124kiyknymwuhTjmry Brit Other [employer] Other Start: 64-29-3985Xnpmhm outpatient visit 25 minutes Alicia QadirFPG NephrologyStart: 06-14-2023 End: 05-47-4925Pukneat encounter procedureNi OLIVARES [facility] Tom Start: 12-20-2022 End: 72-68-5810Olwbwzt encounter procedureNi OLIVARES [facility] Start: 11-29-2022 End: 45-82-7889jzvverpfofYzpoq Brit Other [facility] Other Start: 60-83-2439Drmlhq outpatient visit 25 minutes Alicia QadirFPG NephrologyStart: 11-10-2022 End: 28-56-2564huajhsrwlvIC JOSE HOY .Facility:Z2Jnpor: 11-08-2022 End: 47-96-9282rxkfqeobwkPM JOSE HOY .Facility:Z2Btscn: 11-06-2022 End: 47-32-7221wpncuajazuQR JOSE HOY .Facility:G3Dwpak: 10-29-2022 End: 60-80-0599Txcnxcv encounter procedurePayanira BRAUN [facility] start: 10-26-2022 End: 26-48-3471ubeojtjqwpIPKVZEN BOESFacility:P6Aqeup: 10-22-2022 End: 41-02-8903jflgkcrqxuGL MILTON BRAUN .Facility:I2Wemiz: 10-15-2022 End: 89-15-6716mfevampnpeDU JOSE ALFARO .Facility:P7Amsez: 10-14-2022 End: 43-59-7619pwyzxsfhncLEPCYPO BOESFacility:W7Sxoju: 10-07-2022 End: 13-69-6530Lvefqoprf to same day surgery Kusum OLIVARES [facility] Start: 09-15-2022 End: 87-43-1121jjbppmtamfGrojd Brit Other [facility] Other Start: 80-65-9817Zthepo outpatient visit 25 minutes Alicia QadirFPG NephrologyStart: 13-07-2110hhimspqisqNhallicy:11029Llgao: 09-13-2022 End: 90-99-8517dkhtkbaqwjVCTWW QADIRFacility:U5Vksyu: 09-06-2022 End: 37-75-4874Aswgzsj encounter procedureRidgechandu OLIVARES [facility] Tom Start: 09-01-2022 End: 37-24-6257tzdlifblkfNK NI Garcia CARLOSFacility:E7Qpvis: 08-24-2022 End: 30-43-5335hqcgbvxpewXU JOSE HOY .Facility:U0Wfuzc: 08-22-2022 End: 89-28-0970ougzphnxylJJ JOSE HOY .Facility:H8Olvot: 08-21-2022 End: 61-19-4141gstlidqyrwBK JOSE HOY .Facility:S4Eczdg: 08-18-2022 End: 63-31-2930jmozfnglylDQPIJ QADIRFacility:S4Qrukz: 25-86-8452mfwmnkqdgf Facility:[facility]tart: 76-07-5835Dagytno encounter statusMD Jose Alfaro Work Phone: [facility] HospitalComment on above: Problem List clean-up per request of Phys. EHR CmteStart: 08-11-2022 End: 52-29-0671Dbwusybzz for preprocedural cardiovascular examinationMD Jose Alfaro Work Phone: [facility]tart: 08-11-2022 End: 11-62-6845Jvoksjpkya and management of inpatientMD Jose Hoy Work Phone: [facility] Work Phone: Start: 08-11-2022 End: 53-58-9534pidxxlrhzuGPLRG PARKERFacility:E9Edscl: 08-02-2022 End: 55-95-8278nehyvzgjzoIW JOSE HOY .Facility:F6Fkdmc: 07-08-2022 End: 86-84-6260asgwkflljwRK JOSE HOY .Facility:W9Mptkp: 06-01-2022 End: 34-51-9082nhzcyopujkKqfju Brit Other [employer] Other Start: 38-16-6401Zizocz outpatient visit 25 minutes Alicia QadirFPG NephrologyStart: 05-24-2022 End: 42-03-8759dzdqevgsveSGKAR QADIRFacility:H9Hrfcb: 02-03-2022 End: 70-58-7498aknowlypetUQ JOSE ALFARO .Facility:E7Cuzzx: 11-24-2021 End: 16-04-8602clwbfgyiuwLwldy Brit Other [facility] Other Start: 76-01-8814Fwrwhg outpatient visit 25 minutes Alicia QadirFPG NephrologyStart: 10-26-2021 End: 43-69-8326Puhgfuk encounter procedurePatricpedro luis BRAUN [facility] start: 05-26-2021 End: 40-54-5951gmhdqfsriiBjple Brit Other [employer] Other Start: 30-97-1554Yjcdal outpatient visit 25 minutes Alicia QadirFPG Nephrology Procedures DateProcedureProcedure DetailPerforming ClinicianStart: 31-35-8399WX ABDOMEN PELVIS W CONKyle Jenny DO Other Phone: Start: 42-62-3796TUS 12-LEADAmy Magalys PEDRAZA Work Phone: Start: 15-89-1123Czuolbebgrgegqd of bilateral kidneys MD Jose Alfaro Work Phone: Start: 29-96-8480Gtiudzddhpx removal of ureteric stent Ni OLIVARES Start: 07-00-0140DwbqnoznwyOfrwkhb COOK Start: 25-02-0407OUP screeningABDUL QADIRComment on above:Performed By: #### TSH, LIPID, T4, FT3, CMP #### [facility] [address] [address] [address] Alicia Willson: 18-49-9016Jblpebgprbvnsp shockwave lithotripsy of calculus of kidneyOchsner Medical Centerchandu [employer] Start: 25-38-2000VRV screeningABDUL QADIRComment on above:Performed By: #### PSAD #### [facility] [address] [address] [address] Alicia Willson: 34-79-0341XwfsmvfmhgUS Jose Alfaro Work Phone: Start: 46-45-8391Xfzbm chest X-rayMD Jose Alfaro Work Phone: Start: 36-52-8232Ohyftjvqpinya prostatectomyPatrick Podotree Start: 57-78-3695Kdzcqp of prostatePaValor Water Analyticsk Podotree Start: 70-02-3796lnzemcfdta, bilateral, ureteroscopy, laser lithotripsyPatrick Podotree ear surgeryPatrick Podotree ear surgeryGregNavetas Energy Management Plan of Treatment DateCare ActivityDetailAuthorStart: 06-79-9701KesqsrkakHocking Valley Community Hospital Start: 05-42-1023Ygzparrvo culture of sputumHocking Valley Community Hospital Start: 56-95-0239Slggwlj CultureAerobic CultureHocking Valley Community Hospital Start: 52-96-7503Jzdluxtbptkra of transfusion reactionGram StainMagruder Hospitaltart: 48-31-8455Vwveujhf admissionMagruder Hospitaltart: 93-23-7537Oulzlaoh to cardiologFort Hamilton Hospitaltart: 01-68-5464Dskgjtys to nephrologFort Hamilton Hospitaltart: 07-19-1361Xnleiysm to urologCleveland Clinic Medina HospitalCT Chest WO [facility] HospitalPatient referral [facility] Work Phone: Renal function 1999 panel - Serum [facility] panel - Serum or [facility] HospitalRenal function 1999 panel - Serum or [facility] Immunizations Immunization DateImmunizationNotesCare SkuoevaeFogivgiw33-00-0493nzigwvcdz virus vaccine, unspecified formulationOchsner Medical CenterNavetas Energy Management [facility]11-06-2023pneumococcal 20-valent conjugate vaccineAthleteNetwork [facility]y11-06-2023tetanus toxoid, reduced diphtheria toxoid, and acellular pertussis vaccine, adsorbedGregNavetas Energy Management [facility] [place] 844880-03-2022SARS-CoV-2 (COVID-19) mRNAMUL.ORD!w56146Zliczaj COOK [facility] [place] 844881-22-2021SARS-CoV-2 (COVID-19) Ad26 vaccine, recombinantAthleteNetwork [facility] [place] 844880-04-2021influenza virus vaccine, unspecified formulationOchsner Medical CenterNavetas Energy Management [facility] [place] 844880-04-2021Seasonal trivalent influenza vaccine, adjuvanted, preservative freeKyle Jenny DO Other Phone: [facility] NetworkDtpttrmrjr97-11-1276DORX-RcU-6 (COVID-19) Ad26 vaccine, recombinantAthleteNetwork [facility]01-01-2021SARS-CoV-2 (COVID-19) Ad26 vaccine, recombinantPaLightning Gaming [facility] Hospitalevue 10854100-99-6304mljvwuwhn virus vaccine, unspecified formulationGregory [employer] [facility]y10-23-2020Seasonal trivalent influenza vaccine, adjuvanted, preservative freeKyle Jenny DO Other Phone: [facility] NetworkHhdlocgbdw59-56-6378utgozk vaccine recombinant Ni [employer] [facility]06-11-2020zoster vaccine recombinantNi [employer] [facility] Hospitaly10-09-2019influenza virus vaccine, unspecified formulationPaValor Water Analyticsk Podotree [facility] 10181993-11-7714klobdmfvz virus vaccine, unspecified formulationGregory [employer] [facility] Hospitaly10-10-2017influenza, high dose seasonal, preservative-freeKyle Jenny DO Other Phone: [facility] NetworkVumbxwlwrd47-51-9640fqffxgymgril conjugate vaccine, 13 valentGregory [employer] [facility] Hospitaly10-17-2016influenza virus vaccine, unspecified formulationKyle Jenny DO Other Phone: [facility] NetworkRtmneovecs74-08-3760fsmybadrp, unspecified formulationGregory [employer] [facility] Payers DatePayer CategoryPayerPolicy [id number] (Managed Care)[employer] MEDICARE [id number]-[id number] [id number] 2023Medicare [id number] [id number] .[id number] [employer] [id number] 2.1.680135.3.57[id number] 2..1.350795.3.57[id number] ..1.407130.3.57[id number] 2..1.439605.3.57[id number] 2..1.739892.3.57[id number] 2..1.722461.3.57[id number] 2.0.1.122336.3.57[id number] 2..1.759060.3.57[id number] 2.16.840.1.511972.3.57[id number] 2.16.840.1.898683.3.57[id number] 2.16.840.1.635201.3.57[id number] 2.16.840.1.762815.3.57[id number] 2.16.840.1.009668.3.57[id number] 2.16.840.1.092830.3.57[id number] 2.16.840.1.281328.3.57[id number] 2.16.840.1.367935.3.57[id number] 2.16.840.1.204041.3.579.[id number] 2.16.840.1.922364.3.57[id number] 2.16840.1.506727.3.579.2.70145-76-9852Dftdfrg6462324 2.16.840.1.982151.3.579.2.20761-71-3132Phkibau1851344 2.16.840.1.035423.3.579.2.870063-36-3730Bnifzne8067140 2.16.840.1.606420.3.579.2.977723-08-1591Koawkwt81394377 2.16.840.1.141199.3.579.2.59149-57-2041Czqkben16716023 2.16.840.1.217320.3.579.2.72441-05-9262Tnzhzfm06865324 2.16.840.1.968989.3.579.2.49902-33-1274Soainhi49622179 2.16.840.1.560548.3.579.2.727MedicareMEBNVZ9C 2.16.840.1.440681.19Medicare [id number] 2.16840.1.378737.19UnknownAnthem /[id number] 7579623u-f00m-1wpm-d94[id number] 2.840.1.7[id number] 2.840.1.487975.3.579.2.531 Rpzyicj66140403 [id number] Social History DateTypeDetailFacilityStart: 08-18-2020 End: 15-54-9193Qnoxqmg smoking statusEx-smoker (finding)[employer] Other Comment on above:quit in 1978Sex Assigned At [facility] [employer] Other Start: 29-60-0523Qsc [facility]igned At [facility]tart: 86-00-4071Fferrna smoking statusNeverExecutive Urology of Cherrington Hospitalomment on above:quit in 1978 Start: 04-06-2019 End: 11-78-1521RgpIznf (finding)[facility] Hospitalexual OrientationExecutive [facility] Start: 19-82-9360Czqligm smoking status NHISTobacco smoking consumption unknownM[facility] HealthcareStart: 14-10-2012Bkjptvyyg beverage intakeDeferMCKAY-DEE HOSPITAL CENTER HealthcareStart: 83-26-4644Xbb assigned at birthNot on [facility] Medical Equipment Procedure CodeEquipment CodeEquipment Original TextEquipment IdentifierDates Cystoscopy, with ureteral calculus manipulation and stent placementPolymeric ureteral stent()[id number] FDAStart: 06-15-2019 Cystoscopy, with ureteral calculus manipulation and stent placementPolymeric ureteral stent()[id number] FDAStart: 06-15-2019 Cystoscopy, with ureteral calculus manipulation and stent placementPolymeric ureteral stent()[id number] FDAStart: 08-13-2022 Biopsy, prostate, with US guidancePolymeric ureteral stent ()[id number] FDAStart: 98-80-5051MUKMEAHJDK URETEROSCOPY CARLOS OLIVEROS, Ni Garcia 12/02/22 Unknown Ureter R {[id number] FDAStart: 17-65-7129lz directed In Vitro Goals DatePatient GoalDesired Activity/State Functional Status YntaPyhxmjbdgwGnmisoOgvdvynq04-01-5955Vuodyiuszy StatusN/AExec[facility]06-26-2023Functional StatusN/AFC[facility]03-13-2023Functional StatusN/AExec[facility]02-19-2023Functional statusPatient at BaselinePromedica [facility] Work Phone: Mental Status ZurnQuldirzhhiWobmdiIwqgvllz68-61-5772Dgmctlbfq functionCognitive Status Patient at BaselinePromedica F[facility] Work Phone: Clinical Notes 05-26-2021 to 01-28-2025 Note Date & YrzjScsjWcjkvisn71-30-1893 NoteUT Cardiology - [facility] Subjective Victorino Smyth is a 84 [...] use: Yes Comment: socially Drug use: Never [facility] Victorino is seen for follow up. He is an 84 yo man with prior history of CAD and drug eluting stenting of LAD in March of 2013, and then developed acute [place] related to ISR of the LAD stent on 09/28/2016 and underwent emergent Promus JOSE RAMON stent to the LAD at [facility], was on Brilinta but currently [...] No swelling. Cervical back: (more content not included)...[facility] 12-27-2024 NotePatient: Victorino Smyth Pre-sedation Evaluation: Conscious, moderate sedation for coronary [...] nocturia 05/21/2024 Chronic obstructive pulmonary disease (COPD) ([facility]) 05/21/2024 Diabetes ([facility]) 05/21/2024 Erectile dysfunction 05/21/2024 H/O: hypothyroidism 05/21/2024 Hematuria 05/21/2024 High prostate specific antigen (PSA) 05/21/2024 Hydronephrosis with ureteral calculus 05/21/2024 Hyperkalemia 05/21/2024 Hyperplastic colon polyp 05/21/2024 Kidney stone 05/21/2024 Left renal atrophy 05/21/2024 Lung nodule 05/21/2024 Metabolic acidosis 05/21/2024 Myocardial infarct ([facility]) 05/21/2024 Occult blood in stools 05/21/2024 Postprandial diarrhea 05/21/2024 Prostate cancer ([facility]) 05/21/2024 Prostatic enlargement 05/21/2024 Rheumatoid arthritis ([facility]) 05/21/2024 Right distal ureteral calculus 05/21/2024 Secondary hyperparathyroidism 05/21/2024 CKD (chronic kidney disease) stage 3, GFR 30-59 ml/min ([facility]) 05/21/2024 Clot retention of urine 05/21/2024 Carpal tunnel syndrome 09/12/2023 Coronary atherosclerosis 05/28/2013 Essential hypertension 05/28/2013 Benign prostatic hyperplasia 05/16/2013 Chest pain 05/16/2013 Hyperlipidemia 05/16/2013 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[facility]) 05/16/2013 Type 2 diabetes mellitus without complication ([facility]) 05/16/2013 Coronary artery disease 12/24/2024 Cardiovascular stress test abnormal 12/24/2024 Shortness of breath 12/24/2024 Allergies: Allergies[2] 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 Do not cr (more content not included)...[facility]06-30-2025 NoteUT Cardiology - [facility] Subjective Victorino Smyth is a 84 [...] stent to the LAD at [facility], was on Brilinta but currently [...] There is no abdominal (more content not included)...[facility] [place]06-16-2025 Hospital Discharge instructions Patient Education 12/10/2024 11:32:33 Prostate Cancer Screening Prostate Cancer Screening Prostate cancer screening is testing that is done to check for the presence of prostate cancer in men. The prostate gland is a walnut-sized gland that is located below the bladder and in front of therectum in males. The function of the prostate is to add fluid to semen during ejaculation. Prostatecancer is one of the most common types of cancer in men. Who should have prostate cancer screening? Screening recommendations vary based on age and other risk factors, as well as between the professional organizations who make the recommendations. In general, screening is recommended if: You are age 50 to 70 and have an average risk for prostate cancer. You should talk with your healthcare provider about your need for screening and [...] diagnosed with prostate cancer. The risk is higherif your family member's cancer occurred at an early age or if you have multiple family members withprostate cancer at an early age. ?Being a [...] is a blood test called the prostate-specific antigen(PSA) test. PSA is a protein that is [...] treatment? Where to find more information The Indian Cancer Society: www.cancer.org Indian Urological Association: www.auanet.org Contact a health care [...] the recommended screening test for prostate cancer, butit has associated risks. Discuss the risks and [...] provider. Document Revised: 12/07/2021 Document Reviewed: 12/07/2021 [employer] Patient Education 2023 [employer]. Follow Up Care 06/12/2024 11:57:45 With:CARLOS OLIVEROS, Ni Garcia, URL Address: [address] [place] [address] [address] [place] [address]- When: Unknown Comments:6 mos w/ PSA [facility] Tom [id number] NotePatient Education Oncology Prostate Cancer Screening Prostate cancer screening is testing that is done to check for the presence of prostate cancer in men. The prostate gland is a walnut-sized gland that is located below the bladder and in front of therectum in males. The function of the prostate is to add fluid to semen during ejaculation. Prostatecancer is one of the most common types [...] is a blood test called the prostate-specific antigen(PSA) test. PSA is a protein that is [...] prostate gland for testing (biopsy). This is theonly way to know for certain if you [...] Where to find more information ??? The Indian Cancer Society: www.cancer.org ??? Indian Urological Association: www.auanet.org Contact a health care [...] men. The prostate gland (more content not included)...[facility]12-17-2024 Hospital Discharge instructions Patient Education 06/12/2024 11:45:49 [...] include: ?8 oz (237 mL) of milk, twssthm-bytzhdhsafez-slzbv milk, and calcium- fortifiedfruit juice. Calcium-fortified means [...] ?Spinach (cooked), rhubarb, beets, sweet potatoes, and Ugandan chard. ?Peanuts. ?Potato chips, khmer fries, and baked potatoes with skin on. ?Nuts and nut products. ?Chocolate. If you regularly take a diuretic medicine, make sure to eat at least 1 or 2 servings of fruits or vegetables that are high in potassium each day. These include: ?Avocado. ?Banana. ?Minier, prune, carrot, or tomato juice. ?Baked potato. [...] magnesium, fish oil, or vitamin B6. Take jdnj-rzi-hqajieu and prescription medicines only as told by [...] Casseroles. Pizza. Lasagna. Frozen meals. Potato chips. Liberian fries. The items listed above may not [...] provider. Document Revised: 09/23/2022 Document Reviewed: 09/23/2022 [employer] Patient Education 2023 [employer]. Follow Up Care 06/14/2023 09:52:06 With:CARLOS OLIVEROS, Ni Garcia, URL Address: [address] [place], [place] [id number]- When: Unknown [facility] Tom [id number] NotePatient Education Nephrology Dietary Guidelines to Help Prevent [...] labels. Limit your salt (sodium) intake to lessthan 1,500 mg a day. ??? Choose foods with calcium for each meal and snack. Try to eat about 300 mg of calcium at each meal. Foods that contain 200?500 mg of calcium a serving include: ? 8 oz (237 mL) of milk, ahnoezi-ojporwmtenft-szxis milk, and calcium- fortifiedfruit juice. Calcium-fortified means [...] on the table and allow each person toadd their own salt to taste. ??? Use [...] Spinach (cooked), rhubarb, beets, sweet potatoes, and Ugandan chard. ? Peanuts. ? Potato chips, khmer fries, and baked potatoes with skin on. ? Nuts and nut products. ? Chocolate. ??? If you regularly take a diuretic medicine, make sure to eat at least 1 or 2 servings of fruits or vegetables that are high in potassium each day. These include: ? Avocado. ? Banana. ? Minier, prune, carrot, or tomato juice. ? Baked potato. ? Cabbage. ? Beans and split peas. Lifestyle ??? Drink enough fluid to keep your urine pale yellow. This is the most important thing you can do.Spread your fluid intake throughout the day. ??? [...] fish oil, or vitamin B6. ??? Take lqje-zhq-xkvhejm and prescription medicines only as told by your health (more content not included)...[facility]11-25-2024 NoteUT Cardiology - [facility] Subjective Victorino Smyth is a [...] stent to the LAD at [facility], was on Brilinta but currently [...] normal. Allergies Allergies All (more content not included)...[facility]12-19-2023 Evaluation note* Encounter Date Diagnosis Assessment Notes Treatment Notes Treatment Clinical Notes May, Diabetes mellitus with chronic k idney disease (ICD-10 - E11.22) He has rqr-zcpmnra-wnzjekuxh type 2 diabetes and currently takes glimepiride [...] PCP or diabetic specialist to discuss this. May,hronic kidney disease, stage III (moderate) (ICD-10 - N18.30)He has CKD likely due to the DM and HTN. His baseline serum Creatinine is 1.8-2.0 mg/dl. I have discussed with him the importance of good DM and HTN control to slow down the progression of disease. Advised him to avoid NSAIDs May,en hy kid w cr kid I-IV (ICD-10 - I12.9)Blood pressure is controlled. He appears to be euvolemic. I have advised him to monitor his blood pressure at home and call office if blood pressure stays above 140/80 mmHg. May,Secondary hyperparathyroidism (ICD-10 - N25.81)MBD parameters including calcium, phosphorus, vitamin D and PTH are within the goal. May,Nephrolithiasis (ICD-10 - N20.0)I have advised him to adequately hydrate himself. advised him Continue to follow with Dr. Olivares May,nemia of renal disease (ICD-10 - D63.1)Hemoglobin is within the goal. He has adequate iron stores and has normal B12 and folate level. [employer] Other [id number] Hospital Discharge instructions Patient Education 06/14/2023 09:44:12 [...] include: ?8 oz (237 mL) of milk, nooagid-adxtkmmfilkv-uhjsw milk, and calcium- fortifiedfruit juice. Calcium-fortified means [...] ?Spinach (cooked), rhubarb, beets, sweet potatoes, and Ugandan chard. ?Peanuts. ?Potato chips, khmer fries, and baked potatoes with skin on. ?Nuts and nut products. ?Chocolate. If you regularly take a diuretic medicine, make sure to eat at least 1 or 2 servings of fruits or vegetables that are high in potassium each day. These include: ?Avocado. ?Banana. ?Minier, prune, carrot, or tomato juice. ?Baked potato. [...] magnesium, fish oil, or vitamin B6. Take vhfj-fhr-zlkhyob and prescription medicines only as told by [...] Casseroles. Pizza. Lasagna. Frozen meals. Potato chips. Liberian fries. The items listed above may not [...] provider. Document Revised: 09/23/2022 Document Reviewed: 09/23/2022 [employer] Patient Education 2022 [employer]. Follow Up Care 02/04/2023 14:47:08 With:CARLOS OLIVEROS, Ni Garcia, URL Address: [address] [employer] [address] [place] [address]- When: Unknown [facility] Tom [id number] Hospital Discharge instructions Patient Education 12/20/2022 16:27:08 [...] degrees. Follow Up Care 12/07/2022 13:42:13 With:Ni OLIVARSE Address: [address] [employer] [address] [place] [address]- Business (1) When:6 months Comments:Call for followup [...] as well.Have a great day. [facility]06-05-2023 Evaluation note* Encounter Date Diagnosis Assessment Notes Treatment Notes Treatment Clinical Notes Nov, Diabetes mellitus with chronic k idney disease (ICD-10 - E11.22) He has wtc-jknhjlv-qtbnxusoq type 2 diabetes and currently takes glimepiride [...] PCP or diabetic specialist to discuss this. Nov,hronic kidney disease, stage III (moderate) (ICD-10 - N18.30)He has CKD likely due to the DM and HTN. His serum creatinine is 2.5 mg/dL above baseline serum Creatinine is 1.9-2.0 mg/dl. I have discussed with him the importance of good DM and HTN control to slow down the progression of disease. Advised him to avoid NSAIDs Nov,en hy kid w cr kid I-IV (ICD-10 - I12.9)Blood pressure is controlled. He appears to be euvolemic. I have advised him to monitor his blood pressure at home and call office if blood pressure stays above 140/80 mmHg. Nov,Secondary hyperparathyroidism (ICD-10 - N25.81)MBD parameters including calcium, phosphorus, vitamin D and PTH are within the goal. Nov,Nephrolithiasis (ICD-10 - N20.0)I have advised him to adequately hydrate himself. advised him Continue to follow with Dr. Olivares Nov,nemia of renal disease (ICD-10 - D63.1)Hemoglobin is within the goal. He has adequate iron stores and has normal B12 and folate level. [employer] Other 04-13-2023 Hospital Discharge instructions Patient Education [...] Follow these instructions at home: Medicines Take xpkc-esr-smirbfa and prescription medicines only as told by [...] 07/02/2008 Document Revised: 09/24/2019 Document Reviewed: 05/04/2017 [employer] Patient Education 2019 [employer]. Follow Up Care 09/06/2022 10:38:13 With:Ni OLIVARES Address: [address] [place], [place] [phone] Business (1) When: Unknown Comments:We were able [...] considering any other anesthesia procedures. [facility]04-13-2023 Evaluation + Plan noteExtracted from: Title:KALEN post opAuthor:Timothy Pittman MDDate:10/07/22 Plan Transfer/Discharge: Transfer/Discharge Discharge when meets criteria ( To home ). Extracted from:Title:KALEN GAAuthor:Timothy Pittman MDDate:10/07/22 Plan Indian Society of Anesthesiologists (ASA) physical status classification: Class III. Anesthetic Preoperative Plan: Anesthesia General. Future Appointments Appointment Date:10/29/2022 08:45:00 AM Scheduled Provider:Milton BRAUN MD Location:[facility] Appointment Type:URO Office Visit [facility]03-22-2023 Evaluation note* Encounter Date Diagnosis Assessment Notes Treatment Notes Treatment Clinical Notes Aug, Diabetes mellitus with chronic k idney disease (ICD-10 - E11.22) He has yuh-vfcludq-tykmifngb type 2 diabetes and currently takes glimepiride [...] I will hold the Kerendia for now. Aug,hronic kidney disease, stage III (moderate) (ICD-10 - N18.30)He has CKD likely due to the DM and HTN. His baseline serum Creatinine is 1.9-2.0 mg/dl. I have discussed with him the importance of good DM and HTN control to slow down the progression of disease. Dilciachalino explained the potential risk of the worsening renal function due to the diclofenac. We will monitor renal function and he would like to continue it. Aug,en hy kid w cr kid I-IV (ICD-10 - I12.9)Blood pressure is controlled. He appears to be euvolemic. I have advised him to monitor his blood pressure at home and call office if blood pressure stays above 140/80 mmHg. Aug,Secondary hyperparathyroidism (ICD-10 - N25.81)MBD parameters including calcium, phosphorus, vitamin D and PTH are within the goal. Aug,Nephrolithiasis (ICD-10 - N20.0)I have advised him to adequately hydrate himself. [employer] Other 03-13-2023 Hospital Discharge instructions Patient Education 09/06/2022 10:27:16 Kidney Stones, Kolh-hs-Ibrh Kidney Stones Kidney stones are rock-like masses [...] Follow these instructions at home: Medicines Take grqh-yen-inbjkih and prescription medicines only as told by [...] 11/29/2008 Document Revised: 10/30/2019 Document Reviewed: 10/30/2019 [employer] Patient Education 2019 [employer] Follow Up Care 08/17/2022 09:18:37 With:CARLOS OLIVEROS, Ni Garcia, URL Address: [address] [facility] [address] [place] [address] When: Unknown [facility] 02-19-2023 Discharge summary Author Hiral Interiano [facility] August 15, 2022 1:50pmNote Date/TimeFebruary 2022 1:[address]pm[address] [address] Discharge Summary Signed Patient: Victorino Smyth MR#: [id number] : 1940 Acct:[id number] Age/Sex: 82 / M Adm Date: 3 Loc: 4N Room: 3C7480-[address]: Hiral Interiano MD Copies to: [...] history of nephrolithiasis. He initially presented to [facility] ER with complaint of hypoglycemia and was found to have severe renal failure along with metabolic acidosis and hyperkalemia. CT scan at [facility] showed atrophic left kidney with obstructing stone in the right ureteropelvic junction. Patient was transferred to [facility] for further intervention. On arrival is [...] and urology. He is also advised to f ollow-up with his special services agent in 4-week. CT scan at [facility] also showed 0.8 cm nodule on the left lower lobe. Patient does have history of smoking and would recommend repeating CT scan in 4 to 6-week as a follow-up to be followed by his primary care provider. Patient has been ambulating without any difficulty and denies any complaint at this time. During the hospital stay he also completed co urse of IV antibiotic for suspected pneumonia. No [...] Sodium 140, Potassium 3.8, Chloride 112, Carbon Pteqpqj33.5 L, Anion Gap 10.3, BUN 45 H, [...] Low-Cholesterol Additional Instructions: Follow-up with your Primary Plasma Specialist in 4 weeks. Avoid NSAIDs for [...] office on Tuesday to schedule follow-up with Outside Production Inspector. ) Documented By: Hiral Interiano MD 08/15/22 4986 Signed By: <Electronically signed by Hiral Interiano MD> 08/15/22 9057 [facility] Work Phone: 1(576) 594-978002-19-2023 Progress note Author Alicia León [facility] August 15, 2022 12:01pmNote Date/TimeFebruary 2022 12:01pmFre[place] [address] Nephrology Progress Note Signed Patient: Victorino Smyth MR#: [id number] : 1940 Acct:[id number] Age/Sex: 82 / M Adm Date: 3 Loc: Room: [address] [place] [address] Type: ADM IN Attending Dr: Hiral Interiano MD Copies to: ~ Date of Service: 08/15/2022 Subjective Subjective Narrative: This is a 82-year-old male with a medical history of coronary artery disease s/pPCI, nephrolithiasis, CKD, diabetes mellitus, hypertension, dyslipidemia was presented to the emergency room of [facility] for generalized weakness and low urine output. On evaluation emergency room patient was found to have a life-threatening hyperkalemia with serum potassium 7 mmol/L, acute kidney injurywith elevated serum creatinine 17.8 mg/dL, metabolic acidosis serum bicarbonate 13.5 mmol/L. He was giveninsulin D50 calcium gluconate in the [facility] emergency room. He had a CAT scan abdomen pelvis donewhich showed obstructive kidney stones in the right UPJ and total atrophy of the left kidney. Case was discussed with the on-call urologist Dr. Olivares and recommended patient needs to be n.p.o. for surgical intervention. He was transferred to [facility] for further care. Patient is history ofCKD due to the longstanding DM, HTN and [...] cystoscopy with right retrograde pyelogram with right double- Jureteral stent placement. His renal function has been improving he is making adequate urine output. Patient was seen and examined. He is feeling better denies any chest pain palpitation cough nausea,vomiting, shortness of breath. Exam Physical Exam Vital [...] visible mass Skin: No rashes or bruises JUICE TESTER: Awake,Alert, following simple command Musculoskeletal: No joint [...] 10 Mg Tablet) 10 mg PO DAILY [facility] Stop: 08/16/23 08:59 Aspirin (Aspirin 81 Mg Tablet.Dr) 81 mg PO DAILY [facility] Stop: 08/12/23 08:59 Last Admin: [...] 100 Mg Tablet) 100 mg PO BID [facility] Stop: 08/18/22 20:59 Last Admin: [...] Ml Insuln.Pen) 0 units SUBCUT TID.WM.[facility]; Protocol Stop: 08/11/23 16:59 Last Admin: 08/15/22 09:46 Dose: 5 units Insulin Glargine (Insulin Glargine 300 Units/3 Ml Insuln.Pen) 5 units SUBCUT DAILY [facility] Stop: 08/13/23 08:59 Last Admin: 08/15/22 09:47 Dose: 5 units Melatonin (Melatonin 5 Mg Tablet) 5 mg PO QHS PRN PRN Reason: insomnia Stop: 08/14/23 21:59 Last Admin: 08/14/22 21:08 Dose: 5 mg Metoprolol Tartrate (Metoprolol Tartrate 50 Mg Tablet) 50 mg PO BID [facility] Stop: 08/11/23 20:59 Last Admin: [...] recurrent KELSEA due to the obstructive uropathy. Hisbaseline serum creatinine is 1.4 to 1.6 mg/dL. [...] that if he has difficulty in urination hecan call office. Documented By: Alicia Lenó MD 08/15/22 1158 Signed By: <Electronically signed by Alicia León MD> 08/15/22 1201 [facility] Work Phone: 1(786) 748-996302-19-2023 Progress note Author Cade Alvarez [facility] August 15, 2022 11:31amNote Date/TimeFebruary 2022 11:31amFre[place] [address] Cardiology Progress Note Signed Patient: Victorino Smyth MR#: [id number] : 1940 Acct:[id number] Age/Sex: 82 / M Adm Date: 3 Loc: 4N Room: [address] [place] [address] Type: ADM IN Attending Dr: Hiral Interiano MD Copies to: ~ Date of Service: 08/15/2022 Subjective Principal diagnosis: Acute kidney injury requiring dialysis, obstructive uropathy. Stable CHD. Interval history: Mr. Smyth is doing well this morning. He underwent successful ureteral stent placement [address] Olivares. The procedure was uncomplicated, cardiac or otherwise. This morning Mr. Smyth is without complaint. On my interview he is sitting up in a chair breathing comfortably. He denies any chest pain chest pressure or other anginal symptoms. He denies any resting dyspnea or orthopnea. He ishaving brisk urine output. He tells me that [...] patient has cardiology follow-up with his primary special services agent in [place] within 4 weeks of discharge. (2) CAD (coronary artery disease): Code(s): I25.10 - Atherosclerotic heart disease of deering coronary artery without angina pectoris Status: Acute [...] signed by Cade Alvarez MD> 08/15/22 1131 [facility] Work Phone: [phone]) [phone] Progress note Author Hiral Interiano [facility] August 14, 2022 2:57pmNote Date/TimeFebruary 2022 2:49[place] [address] Hospitalist Progress Note Signed Patient: Victorino Smyth MR#: [id number] : 1940 Acct:[id number] Age/Sex: 82 / M Adm Date: 3 Loc: 4N Room: 6O0629-1 Type: ADM IN Attending Dr: Hiral Interiano [...] Vial SUBCUT 08/12/23 21:59 Not Given Q8HR [facility] Hydralazine HCl 10 mg 08/11/22 [...] Insuln.Pen SUBCUT 08/11/23 16:59 Not Given TID.WM.HS [facility] Protocol Insulin Glargine 5 units [...] level came back at 9 suggesting poorlycontrolled diabetes.Continue basal insulin with sliding scale coverage. Bloodglucose [...] <Electronically signed by Hiral Interiano MD> 08/14/22 3839 [facility] Work Phone: [phone] 324-583502-18-2023 Progress note Author Alicia León [facility] August 14, 2022 11:55amNote Date/TimeFebruary 2022 11:55amFreeland[place] [address] Nephrology Progress Note Signed Patient: Victorino Smyth MR#: [id number] : 1940 Acct:[id number] Age/Sex: 82 / M Adm Date: 3 Loc: Room: [address] [place] [address] Type: ADM IN Attending Dr: Hiral Interiano MD Copies to: ~ Date of Service: 08/14/2022 Subjective Subjective Narrative: This is a 82-year-old male with a medical history of coronary artery disease s/pPCI, nephrolithiasis, CKD, diabetes mellitus, hypertension, dyslipidemia was presented to the emergency room of [facility] for generalized weakness and low urine output. On evaluation emergency room patient was found to have a life-threatening hyperkalemia with serum potassium 7 mmol/L, acute kidney injurywith elevated serum creatinine 17.8 mg/dL, metabolic acidosis serum bicarbonate 13.5 mmol/L. He was giveninsulin D50 calcium gluconate in the [place] emergency room. He had a CAT scan abdomen pelvis donewhich showed obstructive kidney stones in the right UPJ and total atrophy of the left kidney. Case was discussed with the on-call urologist Dr. Olivares and recommended patient needs to be n.p.o. for surgical intervention. He was transferred to [facility] for further care. Patient is history ofCKD due to the longstanding DM, HTN and [...] better denies any chest pain palpitation cough nausea,vomiting, shortness of breath. He underwent the cystoscopy [...] visible mass Skin: No rashes or bruises JUICE TESTER: Awake,Alert, following simple command Musculoskeletal: No joint [...] 100 Mg Tablet) 100 mg PO BID [facility] Stop: 08/18/22 20:59 Last Admin: [...] 5,000 Unit/Ml Vial) 5,000 unit SUBCUT Q8HR [facility] Stop: 08/12/23 21:59 Last Admin: 08/14/22 06:05 Dose: Not Given Hydralazine HCl (Hydralazine 20 Mg/Ml Vial) 10 mg IV-PUSH Q4H PRN PRN Reason: Hypertension Stop: 08/11/23 13:40 Last Admin: 08/14/22 05:44 Dose: 10 mg Ceftriaxone Sodium (Rocephin) 1 gm in 50 mls @ 100 mls/hr IV Q24H [facility] Stop: 08/14/22 14:14 Last Admin: 08/13/22 15:07 Dose: 100 mls/hr Sodium Chloride (0.9% Sodium Chloride 1,000 Ml) 1,000 mls @ 0 mls/hr MISCELLANE.Q0M PRN PRN Reason: Dialysis Stop: 08/11/23 14:19 Last Infusion: 08/12/22 12:38 Dose: Infused Insulin Aspart (Insulin Aspart 300 Units/3 Ml Insuln.Pen) 0 units SUBCUT TID.[facility]; Protocol Stop: 08/11/23 16:59 Last Admin: 08/14/22 11:50 Dose: Not Given Insulin Glargine (Insulin Glargine 300 Units/3 Ml Insuln.Pen) 5 units SUBCUT DAILY [facility] Stop: 08/13/23 08:59 Last Admin: 08/13/22 08:45 Dose: Not Given Metoprolol Tartrate (Metoprolol Tartrate 50 Mg Tablet) 50 mg PO BID [facility] Stop: 08/11/23 20:59 Last Admin: [...] Perez Jr., D.O.08/13/2022 2:25 PM Dictation Location: [place] [address] Any impression(s) listed above is documentation that [...] recurrent KELSEA due to the obstructive uropathy. Hisbaseline serum creatinine is 1.4 to 1.6 mg/dL. [...] signed by Alicia León MD> 08/14/22 1155 [facility] Work Phone: [phone]) 154-257502-18-2023 Progress note Author Cade Antonio [facility] August 14, 2022 11:21amNote Date/TimeFebruary 2022 11:21[place] [id number] Cardiology Progress Note Signed Patient: Victorino Smyth MR#: [id number] : 1940 Acct:[id number] Age/Sex: 82 / M Adm Date: 3 Loc: 4N Room: [address] [place] [address] Type: ADM IN Attending Dr: Hiral Interiaon MD Copies to: ~ Date of Service: [...] % (Auto) 79.6 Lymph % (Auto) 7.8 [place] % (Auto) 11.4 Eos % (Auto) 1.0 Baso % (Auto) 0.2 Nucleat RBC Rel Count 0.1 Neut # (Auto) 5.9 Lymph # (Auto) 0.6 L [place] # (Auto) 0.8 Eos # (Auto) 0.1 [...] MPV Neut % (Auto) Lymph % (Auto) [place] % (Auto) Eos % (Auto) Baso % (Auto) Nucleat RBC Rel Count Neut # (Auto) Lymph # (Auto) [place] # (Auto) Eos # (Auto) Baso # [...] make sure that he has follow-up in [facility] within 4 weeks of discharge. (2) CAD (coronary artery disease): Assessment/Problem Details: Stable/quiescent. No ischemic complications with yesterday's urological procedure. Code(s): I25.10 - Atherosclerotic heart disease of deering coronary artery without angina pectoris Status: Acute Plan: Medical recommendations as above. Plan Thank you very much for this kind consultation and for allowing us to participate in the care of this very pleasant patient Time spent with patient Time Spent With Patient (min): 30 Documented By: Cade Alvarez MD 08/14/22 1118 Signed By: <Electronically signed by Cade Alvarez MD> 08/14/22 1121 [facility] Work Phone: 1(770) 823-511702-17-2023 Progress note Author Hiral Interiano [facility] August 13, 2022 3:09pmNote Date/TimeFebruary 2022 3:02pmFreeland[place] [address] Hospitalist Progress Note Signed Patient: Victorino Smyth MR#: [id number] : 1940 Acct:[id number] Age/Sex: 82 / M Adm Date: 3 Loc: 4N Room: [id number] Type: ADM IN Attending Dr: Hiral Interiano [...] 08/11/22 13:41 Acetaminophen 325 Mg Tablet PO 02/15/24 13:40 Q6HR PRN Pain Scale 1 - [...] Tab.Er.12h PO 08/12/23 20:59 Not Given BID [facility] Heparin Sodium (Porcine) 0 unit 08/11/22 14:20 [...] Insuln.Pen SUBCUT 08/11/23 16:59 Not Given TID.WM.HS [facility] Protocol Insulin Glargine 5 units [...] level came back at 9 suggesting poorlycontrolled diabetes.Hold oral hypoglycemic agent and continue basal insulin [...] signed by Hiral Interiano MD> 08/13/22 1509 [facility] Work Phone: [phone]) 204-484302-17-2023 Progress note Author Alicia León [facility] August 13, 2022 11:29amNote Date/TimeFebruary 2022 11:25[place] [address] Nephrology Progress Note Signed Patient: Victorino Smyth MR#: [id number] : 1940 Acct:[id number] Age/Sex: 82 / M Adm Date: 3 Loc: Room: 3X9630-2 Type: ADM IN Attending Dr: Hiral Interiano MD Copies to: ~ Date of Service: 08/13/2022 Subjective Subjective Narrative: This is a 82-year-old male with a medical history of coronary artery disease s/pPCI, nephrolithiasis, CKD, diabetes mellitus, hypertension, dyslipidemia was presented to the emergency room of [facility] for generalized weakness and low urine output. On evaluation emergency room patient was found to have a life-threatening hyperkalemia with serum potassium 7 mmol/L, acute kidney injurywith elevated serum creatinine 17.8 mg/dL, metabolic acidosis serum bicarbonate 13.5 mmol/L. He was giveninsulin D50 calcium gluconate in the [place] emergency room. He had a CAT scan abdomen pelvis donewhich showed obstructive kidney stones in the right UPJ and total atrophy of the left kidney. Case was discussed with the on-call urologist Dr. Olivares and recommended patient needs to be n.p.o. for surgical intervention. He was transferred to [facility] for further care. Patient is history ofCKD due to the longstanding DM, HTN and [...] visible mass Skin: No rashes or bruises JUICE TESTER: Awake,Alert, following simple command Musculoskeletal: No joint [...] 81 Mg Tablet.Dr) 81 mg PO DAILY [facility] Stop: 08/12/23 08:59 Last Admin: 08/13/22 08:44 Dose: Not Given Atorvastatin Calcium (Atorvastatin 40 Mg Tablet) 40 mg PO HS [facility] Stop: 08/11/23 21:59 Last Admin: 08/12/22 21:07 Dose: 40 mg Dextrose (Dextrose 50% In Water 25 Gm/50 Ml Syringe) 0 gm IV-PUSH PRN PRN PRN Reason: Hypoglycemia Stop: 08/11/23 14:01 Glucose (Dextrose 40% Gel 15 Gm Tube) 0 gm PO PRN PRN PRN Reason: Hypoglycemia Stop: 08/11/23 14:01 Guaifenesin (Guaifenesin 600 Mg Tab.Er.12h) 1,200 mg PO BID [facility] Stop: 08/12/23 20:59 Last Admin: [...] 50 mls @ 100 mls/hr IV Q24H [facility] Last Admin: 08/12/22 16:24 Dose: 100 mls/hr Azithromycin (Zithromax) 500 mg in 250 mls @ 250 mls/hr IV Q24H [facility] Last Admin: 08/12/22 15:06 Dose: 250 mls/hr Sodium Chloride (0.9% Sodium Chloride 1,000 Ml) 1,000 mls @ 0 mls/hr MISCELLANE.Q0M PRN PRN Reason: Dialysis Stop: 08/11/23 14:19 Last Infusion: 08/12/22 12:38 Dose: Infused Insulin Aspart (Insulin Aspart 300 Units/3 Ml Insuln.Pen) 0 units SUBCUT TID.WM.HS [facility]; Protocol Stop: 08/11/23 16:59 Last Admin: 08/13/22 08:44 Dose: Not Given Insulin Glargine (Insulin Glargine 300 Units/3 Ml Insuln.Pen) 5 units SUBCUT DAILY [facility] Stop: 08/13/23 08:59 Last Admin: 08/13/22 08:45 Dose: Not Given Metoprolol Tartrate (Metoprolol Tartrate 50 Mg Tablet) 50 mg PO BID [facility] Stop: 08/11/23 20:59 Last Admin: [...] recurrent KELSEA due to the obstructive uropathy. Hisbaseline serum creatinine is 1.4 to 1.6 mg/dL. [...] signed by Alicia León MD> 08/13/22 1129 [facility] Work Phone: [phone] 261-964602-17-2023 Progress note Author Cade Alvarez [facility] August 13, 2022 9:40amNote Date/TimeFebruary 2022 9:35[place] [address] Cardiology Progress Note Signed Patient: Victorino Smyth MR#: [id number] : 1940 Acct:[id number] Age/Sex: 82 / M Adm Date: 3 Loc: Room: [address] [place] [address] Type: ADM IN Attending Dr: Hiral Interiano [...] MPV Neut % (Auto) Lymph % (Auto) [place] % (Auto) Eos % (Auto) Baso % (Auto) Nucleat RBC Rel Count Neut # (Auto) Lymph # (Auto) [place] # (Auto) Eos # (Auto) Baso # [...] RNA (PCR) IU/mL N/A HCV RNA PCR hand coper log10 N/A Hepatitis C Interp 08/12/22 08/12/22 08/13/22 19:37 21:06 04:28 Corrected WBC 9.9 Uncorrected WBC Count 9.9 RBC 3.54 L Hgb 11.6 L Hct 34.2 L MCV 96.5 MCH 32.9 MCHC 34.1 RDW 13.7 Plt Count 129 L MPV 8.7 Neut % (Auto) 79.2 Lymph % (Auto) 9.6 [place] % (Auto) 9.8 Eos % (Auto) 0.9 Baso % (Auto) 0.5 Nucleat RBC Rel Count 0.1 Neut # (Auto) 7.8 H Lymph # (Auto) 0.9 L [place] # (Auto) 1.0 H Eos # (Auto) [...] HCV RNA (PCR) IU/mL HCV RNA PCR hand coper log10 Hepatitis C Interp 08/13/22 08/13/22 04:28 05:25 Corrected WBC Uncorrected WBC Count RBC Hgb Hct MCV MCH MCHC RDW Plt Count MPV Neut % (Auto) Lymph % (Auto) [place] % (Auto) Eos % (Auto) Baso % (Auto) Nucleat RBC Rel Count Neut # (Auto) Lymph # (Auto) [place] # (Auto) Eos # (Auto) Baso # [...] HCV RNA (PCR) IU/mL HCV RNA PCR hand coper log10 Hepatitis C Interp A&P - [...] Code(s): I25.10 - Atherosclerotic heart disease of deering coronary artery without angina pectoris Status: Acute Plan: Preoperative recommendations as above. Plan Thank you very much for this kind consultation and for allowing us to participate in the care of this very pleasant patient Time spent with patient Time Spent With Patient (min): 30 Documented By: Cade Alvarez MD 08/13/2254 Signed By: <Electronically signed by Cade Alvarez MD> 08/13/22939 [facility] Work Phone: 1([phone]) 559-803802-16-2023 Progress note Author Hiral Interiano [facility] August 12, 2022 4:04pmNote Date/TimeFebruary 2022 4:04pm[place] [address] Hospitalist Progress Note Signed Patient: Victorino Smyth MR#: [id number] : 1940 Acct:[id number] Age/Sex: 82 / M Adm Date: 3 Loc: Room: [address] [place] [address] Type: ADM IN Attending Dr: Hiral Interiano [...] 14:15 08/11/22 21:49 Rocephin IV Infused Q24H [facility] Infusion Azithromycin 500 mg in 250 mls [...] kidney disease: Plan: Patient was transferred from [place] ER when found to have acute kidney [...] level came back at 9 suggesting poorlycontrolled diabetes.I will start him on basal insulin along [...] was 2.4 yesterday and marked acidosis due toacute kidney injury. Plan Patient requires ICU stay given acute renal failure requiring hemodialysis and presentation of severe hyperkalemia and metabolic acidosis. Documented By: Hiral Interiano MD 08/12/22 1556 Signed By: <Electronically signed by Hiral Interiano MD> 08/12/22 4096 [facility] Work Phone: [phone]) 143-998402-16-2023 Progress note Author Alicia León [facility] August 12, 2022 11:29amNote Date/TimeFebruary 2022 11:24[place] [address] Nephrology Progress Note Signed Patient: Victorino Smyth MR#: [id number] : 1940 Acct:[id number] Age/Sex: 82 / M Adm Date: 3 Loc: Room: [address] [place] [address] Type: ADM IN Attending Dr: Hiral Interiano MD Copies to: ~ Date of Service: 08/12/2022 Subjective Subjective Narrative: This is a 82-year-old male with a medical history of coronary artery disease s/pPCI, nephrolithiasis, CKD, diabetes mellitus, hypertension, dyslipidemia was presented to the emergency room of [facility] for generalized weakness and low urine output. On evaluation emergency room patient was found to have a life-threatening hyperkalemia with serum potassium 7 mmol/L, acute kidney injurywith elevated serum creatinine 17.8 mg/dL, metabolic acidosis serum bicarbonate 13.5 mmol/L. He was giveninsulin D50 calcium gluconate in the [place] emergency room. He had a CAT scan abdomen pelvis donewhich showed obstructive kidney stones in the right UPJ and total atrophy of the left kidney. Case was discussed with the on-call urologist Dr. Olivares and recommended patient needs to be n.p.o. for surgical intervention. He was transferred to [facility] for further care. Patient is history ofCKD due to the longstanding DM, HTN and [...] visible mass Skin: No rashes or bruises JUICE TESTER: Awake,Alert, following simple command Musculoskeletal: No joint [...] 40 Mg Tablet) 40 mg PO HS [facility] Stop: 08/11/23 21:59 Last Admin: 08/11/22 21:08 [...] 50 mls @ 100 mls/hr IV Q24H [facility] Last Infusion: 08/11/22 21:49 Dose: Infused Azithromycin (Zithromax) 500 mg in 250 mls @ 250 mls/hr IV Q24H [facility] Last Admin: 08/11/22 16:00 Dose: 250 mls/hr Sodium Chloride (0.9% Sodium Chloride 1,000 Ml) 1,000 mls @ 0 mls/hr MISCELLANE.Q0M PRN PRN Reason: Dialysis Stop: 08/11/23 14:19 Last Admin: 08/12/22 10:24 Dose: 999 mls/hr Insulin Aspart (Insulin Aspart 300 Units/3 Ml Insuln.Pen) 0 units SUBCUT TID.[facility]; Protocol Stop: 08/11/23 16:59 Last Admin: 08/12/22 08:07 Dose: Not Given Metoprolol Tartrate (Metoprolol Tartrate 50 Mg Tablet) 50 mg PO BID [facility] Stop: 08/11/23 20:59 Last Admin: [...] Rehan Fuentes M.D.08/11/2022 4:10 PM Dictation Location: [place] [address] Any impression(s) listed above is documentation that [...] recurrent KELSEA due to the obstructive uropathy. Hisbaseline serum creatinine is 1.4 to 1.6 mg/dL. [...] <Electronically signed by Alicia León MD> 08/12/22 [facility]9 [facility] Work Phone: [phone]) 182-932802-16-2023 Progress note Author Cade Alvarez [facility] August 12, 2022 10:04amNote Date/TimeFebruary 2022 10:05[place] [address] Cardiology Progress Note Signed Patient: Victorino Smyth MR#: [id number] : 1940 Acct:[id number] Age/Sex: 82 / M Adm Date: 3 Loc: Room: [address] [place] [address] Type: ADM IN Attending Dr: Hiral Interiano [...] % (Auto) N/A Lymph % (Auto) N/A [place] % (Auto) N/A Eos % (Auto) N/A Baso % (Auto) N/A Nucleat RBC Rel Count N/A Neut # (Auto) N/A Lymph # (Auto) N/A [place] # (Auto) N/A Eos # (Auto) N/A [...] MPV Neut % (Auto) Lymph % (Auto) [place] % (Auto) Eos % (Auto) Baso % (Auto) Nucleat RBC Rel Count Neut # (Auto) Lymph # (Auto) [place] # (Auto) Eos # (Auto) Baso # [...] MPV Neut % (Auto) Lymph % (Auto) [place] % (Auto) Eos % (Auto) Baso % (Auto) Nucleat RBC Rel Count Neut # (Auto) Lymph # (Auto) [place] # (Auto) Eos # (Auto) Baso # [...] % (Auto) 88.0 Lymph % (Auto) 4.4 [place] % (Auto) 7.4 Eos % (Auto) 0.0 Baso % (Auto) 0.2 Nucleat RBC Rel Count 0.0 Neut # (Auto) 11.8 H Lymph # (Auto) 0.6 L [place] # (Auto) 1.0 H Eos # (Auto) [...] MPV Neut % (Auto) Lymph % (Auto) [place] % (Auto) Eos % (Auto) Baso % (Auto) Nucleat RBC Rel Count Neut # (Auto) Lymph # (Auto) [place] # (Auto) Eos # (Auto) Baso # [...] Code(s): I25.10 - Atherosclerotic heart disease of deering coronary artery without angina pectoris Status: Acute Plan: Preoperative recommendations as above. Plan Thank you very much for this kind consultation and for allowing us to participate in the care of this very pleasant patient Time spent with patient Time Spent With Patient (min): 30 Documented By: Cade Alvarez MD 08/12/22 0959 Signed By: <Electronically signed by Cade Alvarez MD> 08/12/22 1008 [facility] Work Phone: [phone]) 701-415002-15-2023 Consult note Author Alicia León [facility] August 11, 2022 5:46pmNote Date/TimeFebruary 2022 4:00pm[place] [address] Nephrology Consult Note Signed with Nancy Patient: Victorino Smyth MR#: [id number] : 1940 Acct:[id number] Age/Sex: 82 / M Adm Date: 3 Loc: Room: 5X7092-2 Type: ADM IN Attending Dr: Hiral Interiano [...] was presented to the emergency room of [facility] for generalized weakness and low urine output. On evaluation emergency room patient was found to have a life-threatening hyperkalemia with serum potassium 7 mmol/L, acute kidney injurywith elevated serum creatinine 17.8 mg/dL, metabolic acidosis serum bicarbonate 13.5 mmol/L. He was giveninsulin D50 calcium gluconate in the [place] emergency room. He had a CAT scan abdomen pelvis donewhich showed obstructive kidney stones in the right UPJ and total atrophy of the left kidney. Case was discussed with the on-call urologist Dr. Olivares and recommended patient needs to be n.p.o. for surgical intervention. He was transferred to [facility] for further care. Patient is history ofCKD due to the longstanding DM, HTN and [...] bedside he reported to have a generalized weaknessand shortness of breath. Review of Systems Review [...] 40 Mg Tablet) 40 mg PO HS [facility] Stop: 08/11/23 21:59 Dextrose (Dextrose [...] Units/3 Ml Insuln.Pen) 0 units SUBCUT TID.WM.HS [facility]; Protocol Stop: 08/11/23 16:59 Metoprolol [...] visible mass Skin: No rashes or bruises JUICE TESTER: Awake,Alert, following simple command Musculoskeletal: No joint [...] recurrent KELSEA due to the obstructive uropathy. Hisbaseline serum creatinine is 1.4 to 1.6 mg/dL. [...] the bedside to initiate emergent hemodialysis due tothe critical hyperkalemia, metabolic acidosis and KELSEA. Patient consented for dialysis. I consulted the outside cutter for hemodialysis catheter placement which was placed [...] team. Documented By: Alicia León MD 08/11/22 7094 Signed By: <Electronically signed by Alicia León MD> 08/11/22 4443 [facility] Work Phone: 1(880) 544-618202-15-2023 Consult note Author Cade Alvarez [facility] August 11, 2022 4:47pmNote Date/TimeFebruary 2022 4:36pm[place] [address] Cardiology Consult Note Signed Patient: Victorino Smyth MR#: [id number] : 1940 Acct:[id number] Age/Sex: 82 / M Adm Date: 3 Loc: Room: [address] [place] [address] Type: ADM IN Attending Dr: Hiral Interiano [...] syndrome in 2017. Patient initially presented to [place] emergency department complaining of shortness of breath [...] the underlying source of the patient's acute kidneyinjury. Dr. Olivares with urology has seen and [...] # (Auto) N/A Lymph # (Auto) N/A [place] # (Auto) N/A Eos # (Auto) N/A [...] nonspecific abnormality, ST segment, and/or T wave [place], pacemaker, normal Normal tracing: no change compared [...] Code(s): I25.10 - Atherosclerotic heart disease of deering coronary artery without angina pectoris Plan Thank you very much for this kind consultation and for allowing us to participate in the care of this very pleasant patient Documented By: Cade Alvarez MD 08/11/22 1632 Signed By: <Electronically signed by Cade Alvarez MD> 08/11/22 1647 [facility] Work Phone: 1(655) 560-750002-15-2023 Consult note Author Ni Olivares [facility] August 11, 2022 3:24pmNote Date/TimeFebruary 2022 3:24pm[place] [address] Urology Consult Note Signed Patient: Victorino Smyth MR#: [id number] : 1940 Acct:[id number] Age/Sex: 82 / M Adm Date: 3 Loc: Room: [address] [place] [address] Type: ADM IN Attending Dr: Hiral Interiano MD Copies to: MD Ni James MD Mazhar Rahman, MD~ History of Present Illness Consult Details Consult Date: 08/11/2022 Requesting Provider: Hiral Interiano MD HPI: Mr. Smyth is an 82-year-old man transferred from the [facility]ert[facility]. The patient presented with [...] the emergency room prior to transfer to [facility]. He finished breakfast at about [...] P documented by Dr. Interiano earlier today [facility] Vaccinated for COVID-19?: Yes Medical History (Updated [...] % (Auto) N/A, Lymph % (Auto) N/A, [place] % (Auto) N/A, Eos % (Auto) N/A, Baso % (Auto) N/A, Nucleat RBC Rel Count N/A, Neut # (Auto) N/A, Lymph # (Auto) N/A, [place] # (Auto) N/A, Eos # (Auto) N/A, Baso # (Auto) N/A, Band Neutrophils % 1, Lymphocytes % 5 L, Monocytes % 1 L, Segmented Neutrophils 94 H, Platelet Estimate Normal, Plt Morphology Comment Normal, RBC Morphology N/A, Poikilocytosis Slight, Anisocytosis Slight, MicrocytosisSlight, Crenated Cell Slight 08/11/22 13:39: PHA Creatinine [...] in 2018 2019, with a large ureteral calculustreated by Dr. Carlisle with laser lithotripsy and stone extraction Code(s): N26.1 - Atrophy of kidney (terminal) (6) Hyperkalemia: Plan: Severe Code(s): E87.5 - Hyperkalemia Plan Overall this patient is in serious condition with profound renal failure, hyperkalemia, metabolic acidosis. Repeat potassium level is actually worse than that noted at the [facility] at a current level of [...] obstruction pending his clinical course. His other currentmedical issues will have to be resolved for [...] <Electronically signed by MD Ni Olivares> 08/11/22 7819 [facility] Work Phone: 1(695) 459-594002-15-2023 History and physical note Author Hiral Interiano [facility] August 11, 2022 2:02pmNote Date/TimeFebruary 2022 2[place] [id number] Hospitalist H&P Signed Patient: Victorino Smyth MR#: [id number] : 1940 Acct:[id number] Age/Sex: 82 / M Adm Date: 3 Loc: Room: [address] [place], [place] [id number] Type: ADM IN Attending Dr: Hiral Interiano [...] of nephrolithiasis. Patient has been transferred from [facility] ER for acute kidney injury [...] repeated labs available in the record from [facility]. Chest x- ray read as mild bilateral lower lung streaky opacities reflecting atelectasis, less likely infiltrate. CT abdomen/pelvis showing obstructing 1.1 x 1 x 0.7 cm calculus in the right ureter just distal to right UPJ with moderate right pelviocaliectasis. Table atrophic left kidney. 0.8 cm nodular density in left lower chest. Case was discussed with Dr. Olivares regarding CT scan finding who re commended to keep patient n.p.o. and accepted for intervention. Apparently patient was fed in theER. On arrival to the floor he is complaining of heartburn with midsternal chest discomfort and describes a similar feeling when he had an [place] in 2017 and prior to that in 2012. Stat EKG was negative foracute ischemic changes. Patient mentioned having cough for couple of weeks which is mostly dry and he thought he pulled a muscle in the right groin and has been having pain since then. Presented to ER with complaint of hypoglycemia. Patient also mentioned having diarrhea which has been going on forlast few days. 2 weeks ago he was constipated and was taking medication for that and then he developed diarrhea. Review of Systems Review of Systems All other systems reviewed & are negative unless noted below or in HPI [facility] Medical History (Updated 08/11/22 @ [...] type 2. He has been transferred from [facility] for obstructive uropathy with worsening renal failure and hyperkalemia. I was informed the patient was given cocktail for hyperkalemia with no repeated labs available in the record. Patient arrival to floor complaining of midsternal discomfort and mentioned having similar feeling when he had an [place]. Does appear tachypneic likely from metabolic acidosis. [...] lead to cardiac arrest. We will start himon sliding scale coverage. Continue beta-charlotte and aspirin. [...] <Electronically signed by Hiral Interiano MD> 08/11/22 1409 [facility] Work Phone: 1(210) 982-566902-15-2023 [facility]* Encounter Date Diagnosis Assessment Notes Treatment Notes Treatment Clinical Notes May, Diabetes mellitus with chronic k idney disease (ICD-10 - E11.22) He has evm-hytdboi-zuxhrilva type 2 diabetes and currently takes glimepiride [...] I will hold the Kerendia for now. May,hronic kidney disease, stage III (moderate) (ICD-10 - N18.30)He has CKD likely due to the DM and HTN. His baseline serum Creatinine is 1.3-1.6 mg/dl. I have discussed with him the importance of good DM and HTN control to slow down the progression of disease. aRmona explained the potential risk of the worsening renal function due to the diclofenac. We will monitor renal function and he would like to continue it. May,en hy kid w cr kid I-IV (ICD-10 - I12.9)Blood pressure is controlled. He appears to be euvolemic. I have advised him to monitor his blood pressure at home and call office if blood pressure stays above 140/80 mmHg. May,econdary hyperparathyroidism (ICD-10 - N25.81)MBD parameters including calcium, phosphorus, vitamin D and PTH are within the goal. May,Nephrolithiasis (ICD-10 - N20.0)I have advised him to adequately hydrate himself. [employer] Other 08-11-2022 NotePROCEDURE: XR KNEE LT 4V or > COMPARISON: None. HISTORY: Pain of left knee joint FINDINGS: BONES:No acute fracture or dislocation. Minimal degenerative changes. SOFT TISSUES:Negative. No visible soft tissue swelling. EFFUSION:None visible. OTHER: Vascular calcification IMPRESSION: No acute abnormality Electronically authenticated by: TYLER MONSIVAIS Date: 2022-02-04 07:23[facility]05-31-2022 Evaluation note* Encounter Date Diagnosis Assessment Notes Treatment Notes Treatment Clinical Notes October, Diabetes mellitus with chronic k idney disease (ICD-10 - E11.22) He has zac-xyswlfa-ggdzlkooh type 2 diabetes and currently takes glimepiride and Januvia. I have advised him to continue to follow with her PCP for DM management. Will start low-dose of lisinopril due to the hypertension and for renal protection. October,hronic kidney disease, stage III (moderate) (ICD-10 - N18.30)He has CKD likely due to the DM and HTN. His baseline serum Creatinine is 1.3-1.6 mg/dl. I have discussed with him the importance of good DM and HTN control to slow down the progression of disease. October,en hy kid w cr kid I-IV (ICD-10 - I12.9)Blood pressure is controlled. He appears to be euvolemic. I have advised him to monitor his blood pressure at home and call office if blood pressure stays above 140/80 mmHg. October,econdary hyperparathyroidism (ICD-10 - N25.81)MBD parameters including calcium, phosphorus, vitamin D and PTH are within the goal. October,Nephrolithiasis (ICD-10 - N20.0)I have advised him to adequately hydrate himself. [employer] Other 05-02-2022 Hospital Discharge instructions Follow Up Care 10/26/2021 10:06:54 With:KADE OLIVEROS, Milton Brewer, URL Address: [address] [place] [address] [place] [address]- When: Unknown [facility] Charito 05-02-2022 Hospital Discharge instructions [...] 06/13/2006 Document Revised: 03/02/2019 Document Reviewed: 05/13/2017 [employer] Patient Education 2020 [employer]. 10/26/2021 09:44:44 Urinary Frequency, Adult Urinary Frequency, [...] to keep your urine pale yellow. ?Take ctoy-crm-uwyilhy or prescription medicines. ?Eat foods that are high in fiber, such as beans, whole grains, and fresh fruits and vegetables. ?Limit foods that are high in fat and processed sugars, such as fried or sweet foods. General instructions Take hxsi-nrn-olcxsep and prescription medicines only as told by [...] the muscles that help control urination. Take wwgx-dji-cnjicop and prescription medicines only as told by your health care provider. Contact a health care provider if your symptoms do not improve or get worse. This information is not intended to replace advice given to you by your health care provider. Make sure you discuss any questions you have with your health care provider. Document Released: 04/09/2010 Document Revised: 12/21/2018 Document Reviewed: 12/21/2018 [employer] Patient Education 2020 [employer]. 10/26/2021 09:44:41 Kidney Stones, Fxab-oc-Pftr Kidney Stones Kidney stones are rock-like masses [...] Follow these instructions at home: Medicines Take zsii-dxe-hwwjeld and prescription medicines only as told by [...] Document Reviewed: 10/30/2019 Elsevier Patient Education 2020 [employer] Follow Up Care 02/23/2021 14:09:11 With:KADE OLIVEROS, BHUPINDER Rose Address: [facility] [address] , [place] [address]- When:10/26/2022 [facility] 11-30-2021 Evaluation note* Encounter Date Diagnosis Assessment Notes Treatment Notes Treatment Clinical Notes Apr, Diabetes mellitus with chronic k idney disease (ICD-10 - E11.22) He has jus-lqcqafn-pjhsrphle type 2 diabetes and currently takes glimepiride and Januvia. I have advised him to continue to follow with her PCP for DM management. Will start low-dose of lisinopril due to the hypertension and for renal protection. Apr,hronic kidney disease, stage III (moderate) (ICD-10 - N18.30) He has CKD likely due to the DM and HTN. His baseline serum Creatinine is 1.3- 1.6 mg/dl. I have discussed with him the importance of good DM and HTN control to slow down the progression of disease. Apr,en hy kid w cr kid I-IV (ICD-10 - I12.9) Blood pressure is controlled. He appears to be euvolemic. I have advised him to monitor his blood pressure at home and call office if blood pressure stays above 140/80 mmHg. 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 Apr,Nephrolithiasis (ICD-10 - N20.0) I have advised him to adequately hydrate himself. [employer] Other Evaluation + Plan note Future Appointments Appointment Date:10/29/2022 08:45:00 AM Scheduled Provider:Milton BRAUN MD Location:[facility] Appointment Type:URO Office Visit [facility] evaluation + Plan note Future Appointments Appointment Date:09/14/2022 07:30:00 AM Scheduled Provider: Location:[facility] Appointment Type:Surgical PAT FT Appointment Date:10/07/2022 12:00:00 PM Scheduled Provider: Location:[facility] Appointment Type:Surgery FT Appointment Date:10/29/2022 08:45:00 AM Scheduled Provider:Milton BRAUN MD Location:[facility] Appointment Type:URO Office Visit [facility] evaluation + Plan note Future Appointments Appointment Date:11/18/2022 10:30:00 AM Scheduled Provider: Location:[facility] Appointment Type:Surgical PAT FT Appointment Date:12/02/2022 11:45:00 AM Scheduled Provider: Location:[facility] Appointment Type:Surgery FT [facility] evaluation + Plan note Future Appointments Appointment Date:06/12/2024 11:00:00 AM Scheduled Provider:Ni OLIVARES MD Location[facility] Appointment Type:URO Office Visit Future Scheduled Tests Laboratory* Total Protein 24 Hour Urine 02/14/23 [facility] evaluation + Plan note Future Appointments Appointment Date:12/10/2024 11:15:00 AM Scheduled Provider:Ni OLIVARES MD Location:[facility] Appointment Type:URO Office Visit Diagnostic Tests Pending * PSA Total 06/12/24 [facility] evaluation + Plan note Future Appointments Appointment Date:06/11/2025 10:00:00 AM Scheduled Provider:Ni OLIVARES MD [facility] Appointment Type:URO Office Visit Diagnostic Tests Pending * PSA Free & Total 12/10/24 [facility] evaluation + Plan note Future Appointments Appointment Date:06/11/2025 10:00:00 AM Scheduled Provider:Ni OLIVARES MD [facility] Appointment Type:URO Office Visit [facility] evaluation note* Diagnosis Onset Date Resolution Status Acute kidney injury superimposed on chromium plater christa kidney disease acuteAcute kidney insufficiencyacuteCAD (coronary artery disease)acuteCKD (chronic kidney disease) stage 3, GFR 30-59 ml/minacuteElevated PSAacute Hydronephrosis with ureteral qulssie[id number] acuteLeft renal atrophyacuteMetabolic acidosisacuteObstructive nephropathyacute Preoperative cardiovascular examinationacuteRight ureteral stoneacuteType 2 diabetes mellitus with diabetic chronic kidney diseaseacuteDiabeteschronic [facility] Work Phone: Evaluation noteNo assessment information available [facility] Work Phone: Evaluation note* Diagnosis Onset Date Resolution Status Secondary hyperparathyroidism acuteCKD (chronic kidney disease) stage 3, GFR 30-59 ml/minchronic [id number] renal atrophychronicMetabolic acidosischronicType 2 diabetes mellitus with diabetic chronic kidney diseasechronic [facility] Work Phone: Evaluation note* Diagnosis Onset Date Resolution Status Admit Date Hyperuricemia acuteJune 2024 2:13pmNephrolithiasisacuteJune 2024 2:13pmSecondary hyperparathyroidismacuteJune 2024 2:13pmCKD (chronic kidney disease) stage 3, GFR 30-59 ml/minchronicJune 2024 2:13pmHyperlipidemiachronicJune 2024 2:13pmHypertensive chronic kidney disease with stage 1 through stage 4 chronic kichronicJune 2024 2:13pmLeft renal atrophychronicJune 2024 2:13pmType 2 diabetes mellitus with diabetic chronic kidney diseasechronicJune 2024 2:13pm [facility] Work Phone: History general Narrative - Reported* Type Description Date Medical History DIABETES MELLITUS Medical HistoryCORONARY ARTERY DISEASEMedical HistoryMORBID OSESITYSurgical HistoryHERNEA LOWER RIGHT ABDOMINALSurgical HistoryHEART ATTACK WITH STENT PLACEMENT IN THE LADSurgical HistoryKIDNEY STENTS X 2Surgical HistoryPROSTRATE BIO PADSurgical HistoryKIDNEY STENTS [id number] HistoryKIDNEY STONE REMOVAL Hospitalization HistorySEE ABOVE [employer] Other History general Narrative - Reported* Type Description Date Medical History DIABETES MELLITUS Medical HistoryCORONARY ARTERY DISEASEMedical HistoryMORBID OSESITYMedical HistoryHYPERTENSIONMedical HistoryCHRONIC KIDNEY DISEASE STAGE 3Medical History ANEMIA OF RENAL DISEASESurgical HistoryHERNEA LOWER RIGHT ABDOMINALSurgical HistoryHEART ATTACK WITH STENT PLACEMENT IN THE LADSurgical HistoryKIDNEY STENTS X 2Surgical HistoryPROSTRATE BIO PADSurgical HistoryKIDNEY STENTS [id number] HistoryKIDNEY STONE REMOVALHospitalization HistorySEE ABOVE [employer] Other History general Narrative - Reported* Type Description Date Medical History DIABETES MELLITUS Medical HistoryCORONARY ARTERY DISEASEMedical HistoryMORBID OSESITYMedical HistoryHYPERTENSIONMedical HistoryCHRONIC KIDNEY DISEASE STAGE 3Medical History ANEMIA OF RENAL DISEASEMedical HistoryKNEE ARTHRITISSurgical HistoryHERNEA LOWER RIGHT ABDOMINALSurgical HistoryHEART ATTACK WITH STENT PLACEMENT IN THE LAD Surgical HistoryKIDNEY STENTS X 2Surgical HistoryPROSTRATE BIO PADSurgical HistoryKIDNEY STENTS [id number] HistoryKIDNEY STONE REMOVALHospitalization HistorySEE ABOVE [employer] Other History general Narrative - Reported* Type Description Date Medical History DIABETES MELLITUS Medical HistoryCORONARY ARTERY DISEASEMedical HistoryMORBID OSESITYMedical HistoryHYPERTENSIONMedical HistoryCHRONIC KIDNEY DISEASE STAGE 3Medical History ANEMIA OF RENAL DISEASEMedical HistoryKNEE ARTHRITISMedical HistoryACUTE KIDNEY INJURY SUPERIMPOSED ON CHRONIC KIDNEY DISEASEMedical HistoryHYPERKALEMIAMedical HistoryMETABOLIC ACIDOSISMedical HistoryHYDRONEPHROSIS WITH URETERAL CALCULUS Medical HistoryCKD STAGE 3Medical HistoryTYPE 2 DIABETES MELLITUS WITH DIABETIC CHRONIC KIDNEY DISEASEMedical HistoryLUNG NODULESurgical HistoryHERNEA LOWER RIGHT ABDOMINALSurgical HistoryHEART ATTACK WITH STENT PLACEMENT IN THE LAD Surgical HistoryKIDNEY STENTS X 2Surgical HistoryPROSTRATE BIO PADSurgical HistoryKIDNEY STENTS C2Ssqnwbzu HistoryKIDNEY STONE REMOVALHospitalization HistorySEE ABOVEHospitalization HistoryAKI, HYPERKALEMIA, METABOLIC ACIDOSIS 08/11/2022 [employer] Other Hospital course Narrative No data available for this section [facility] Dis[facility] instructions Additional Instructions Follow-up with your Primary Plasma Specialist in 4 weeks. Avoid NSAIDs for pain control. Call [facility] on Tuesday at [phone] to arrange a follow up CT scan regarding lung nodule in 4 weeks. Maintain occlussive dressing to HD catheter removal site for 48 hours - return to the Emergency Room for oozing or drainage from catheter exit site, noticeable swelling or itching around neck, shortness of breath, [facility]ish[facility] Work Phone: Hospital Discharge instructions No data available for this section [facility] Progress note No data available for this section [facility] Tom Chief Complaint and Reason for Visit Chief Complaint ACUTE RENAL FAILURE Reason for Visit Acute kidney injury superimposed on chronic kidney disease Acute kidney insufficiency CAD (coronary artery disease) CKD (chronic kidney disease) stage 3, GFR 30-59 ml/min Elevated PSA Hydronephrosis with ureteral calculus Hyperkalemia [id number] Left renal atrophy Metabolic acidosis Obstructive nephropathy Preoperative cardiovascular examination Right ureteral stone Type 2 diabetes mellitus with diabetic chronic kidney disease Diabetes Chief Complaint n20.0 Chief Complaint n20.0 N40.1 Chief Complaint n20.0 N40.1 N20.0 Chief Complaint Unknown Chief Complaint Unknown RENAL 6 month f/uReason for VisitSecondary hyperparathyroidism CKD (chronic kidney disease) stage 3, GFR 30-59 ml/min [id number] Left renal atrophy Metabolic acidosis Type 2 [...] disease December 03, 2024 2:13pm Advance Directives Advance Directive Response Recorded Date/ Time Advance Directives No May 4:27am Advance Directive Response Recorded Date/ Time Advance Directives No May 5:27am Summary Purpose Family History Relationship Condition Age at Onset Recorded Date/T jeyson Not Specified No pertinent family history Unknown brotherHypertensionUnknownfatherFamily history of mental disorderUnknownHeart diseaseUnknownDeceasedUnknownNot SpecifiedDeceasedUnknownNo Family History Records Found Additional Source Comments [...] Care Provider Active Start: November 27, 2024 AliciaWilman Lou ProviderActiveStart: November 27, 2024 Team Status: Inactive Member Role Status Dates Jose Alfaro MD Primary Care Provider Active Start: December 03, 2024 End: December 03bdWilman Lou ProviderActiveStart: December 03, 2024 End: December 03, 2024 Team Status: Inactive Member Role Status Dates Jose Alfaro MD Primary Care Provider Active Luc Richardson Provider, Attending ProviderActiveGita Mckinley RN Other ProviderActiveW Augustin Lin DOOther ProviderActiveNiharika Elias MD Other ProviderActiveWinadia Larkin MDOther ProviderActiveMooz Dow MDOther ProviderActivePeter Manuel MDOther Provider ActiveDonjin Eldridge APRNOther ProviderActivePeyton Barragan MDOther ProviderActiveMohammiah Solo MDOther ProviderActiveSkinny Kiser MD Other ProviderActiveCarol Thang Tamayo , ELECTRONICS TEST ENGINEER-BCOther ProviderActiveAaliyah Mitchell MDOther ProviderActiveAlicia León MDOther ProviderActivePatrick Braun , MD Other ProviderActiveNi Olivares MDOther ProviderActiveYogesh Omalley MDOther ProviderActiveKiran Eldridge Jr, MDOther ProviderActiveFátima Ivey MDOther ProviderActiveJennifer Villarreal MDOther ProviderActiveBipin Barclay MDOther ProviderActive Team Status: Inactive Member Role Status Dates Jose Alfaro MD Primary Care Provider Active Wilman Pimentel ProviderActive Team Status: Inactive Member Role Status Dates Jose Alfaro MD Primary Care Provider Active Start: October 18, 2023 End: October 18, 2023NON STAFFAttending ProviderActiveStart: October 18, 2023 End: October 18, 2023 Team Status: Active Member Role Status Dates Jose Alfaro MD Primary Care Provider Active Start: December 14, 2023 Aliciamicah León MDAttnargis ProviderActiveStart: December 14, 2023 Team Status: Inactive Member Role Status Dates Jose Alfaro MD Primary Care Provider Active Start: December 20, 2023 End: December 19bdmicah León MDAttending ProviderActiveStart: December 20, 2023 End: December 20, 2023Team MemberRelationshipSpecialtyStart DateEnd Date Jose Alfaro MD PCP - [facility]09/12/23Team MemberRelationshipSpecialtyStart DateEnd Date Jose Alfaro MD PCP - [facility]09/12/23 (unrecognized sect ion and content) No Status Records FoundNo Status Records FoundNo Status Records FoundNo Status Records FoundNo Status Records FoundNo Status Records FoundNo Status Records Found INFORMATION SOURCE (unrecogn ized section and content) DATE CREATED AUTHOR 10/03/2022 [facility] DATE CREATED AUTHOR AUTHOR'S ORGANIZ ATION 12/07/2022 [facility] DATE CREATED AUTHOR AUTHOR'S ORGANIZ ATION 10/27/2023 [facility] DATE CREATED AUTHOR AUTHOR'S ORGANIZ ATION 12/21/2023 [facility] DATE CREATED AUTHOR AUTHOR'S ORGANIZ ATION 12/12/2024 [facility] DATE CREATED AUTHOR AUTHOR'S ORGANIZ ATION 12/17/2024 [facility] DATE CREATED AUTHOR AUTHOR'S ORGANIZ ATION 03/06/2025 [facility] Goals (unrecognized section and content) Goals may [...] BE BASED ON THE PRIMARY CLINICAL RECORDS. [facility]. provides no warranty or guarantee of the accuracy or completeness of information in this document.
--- OUTSIDE RECORDS SUMMARY | 2025-05-30 07:32 | XMS_ITS | Clinical Summary ---
Author Organization [facility] Healthcare Address [address] [place] [address] Care Team Providers Care Edging Machine Operator Name Role Phone Jose Danielson MD Primary Care Provider [phone] Allergies Active AllergyReactionsCriticalityNoted DateCommentsCiprofloxacinItching,Other 10/14/2022enicillinsHives,Rash,Unknown,IvpsoQhz61/19/2014 Medications MedicationSigDispense QuantityRefillsLast FilledStart DateEnd DateStatus aspirin 81 MG EC tablet Take 1 tablet by mouth DailyActive atorvastatin (Lipitor) 80 MG tablet Take 1 tablet by mouth DailyActive B Complex capsule 1 (one) time each day at the same timeActive cholecalciferol (Vitamin D-3) 125 MCG (5000 UT) capsule 1 capsule 1 (one) time each day at the same timeActive glimepiride (Amaryl) 2 MG tablet 1 (one) time each day at the same time08/11/2023ctive Accu-Chek Nevaeh Plus test strip as directed In VitroActive isosorbide mononitrate ER (Imdur) 120 MG 24 hr tablet 1 (one) time each day at the same timeActive lisinopril 20 MG tablet 07/25/2023ctive levothyroxine (Synthroid, Levoxyl) 50 MCG tablet Take 1 tablet by mouth DailyActive liothyronine (Cytomel) 5 MCG tablet TAKE 1 TABLET BY MOUTH ONCE DAILY for ctive metoprolol tartrate (Lopressor) 50 MG tablet Take 1 tablet by mouth in the morning and 1 tablet before bedtime.05/09/2023 Active nitroglycerin (Nitrostat) 0.[address] 1 tablet as needed by sublingual route for 30 days.05/25/2023ctive pioglitazone (Actos) 15 MG tablet TAKE 1 TABLET BY MOUTH ONCE DAILY for ctive ranolazine (Ranexa) 500 MG 12 hr tablet every 12 (twelve) hours05/25/2023ctive Januvia 100 MG tablet Take 1 tablet every day by oral route for 90 days.Active triamcinolone (Kenalog) 0.1 % cream 1 ApplicationActive tiotropium (Spiriva) [address] 1 capsule into inhaler and inhale in the morning.Active albuterol HFA 90 mcg/act inhaler Inhale 2 puffs every 4 (four) hours if needed for wheezingActive glucosamine-chondroitin 500-400 MG tablet Take 1 tablet by mouth in the morning and 1 tablet in the evening and 1 tablet before bedtime.Active magnesium lactate CR (Magtab) 84 MG (7MEQ) ER tablet Take 84 mg by mouth DailyActive Ketoconazole-Hydrocortisone 2 & 1 % kit Apply topicallyActive Active Problems ProblemNoted DateDiagnosed DateCarpal tunnel qrvmuovn74/18/2024re-operative cardiovascular sxikclwivgu34/24/2023 Overview (09/12/2023): Last Assessment & Plan: RCRI- 2 points Class III Risk 10.1 % 30-day risk of , RI, or cardiac arrest EKG at last visit [...] any major fluid shifts. Thank You Coronary gihporszbxfendb32/02/2013 Overview (09/12/2023): Last Assessment & Plan: Coronary artery disease is stable, angina much improved s/p increased imdur dose and adding ranexa. Continue GDMT Essential wvdzxsnoedps42/02/2013 Overview (09/12/2023): Last Assessment & Plan: Hypertension is well controlled today 126/60 with increased norvasc and imdur doses Continue norvasc, lisinopril, imdur, Renal function being monitored by nephrology Benign prostatic aforwulkile74/20/2013Chest pain05/16/2013 Overview (09/12/2023): Last Assessment & Plan: Increase imdur to 120 mg and start ranexa as per Dr Huynh's recommendations Tphbzzngqmqnxo35/20/2013 Overview (09/12/2023): Last Assessment & Plan: Continue statin- lipid level well controlled Preinfarction fykkjbjr67/20/2013Type 2 diabetes mellitus without complications 05/16/2013 Immunizations ImmunizationAdministration DatesNext DueInfluenza, High Dose Seasonal, Preservative Free04/05/2017Influenza, Ogjcmjrtlhw63/17/2016Influenza, trivalent, joznlqwzgt17/04/2021,04/18/2020Pneumococcal Conjugate PCV 131 Pneumococcal Conjugate PCV Tdap107/02/2022Zoster, Recombinant 02/05/2020,12/06/2019 Social History Tobacco UseTypesPacks/DayYears UsedDateSmoking Tobacco: UnknownAlcohol Use Standard Drinks/WeekCommentsDefer0 (1 standard drink = 0.6 oz pure alcohol)Sex and Gender InformationValueDate RecordedSex Assigned at BirthNot on fileLegal TthMyao1809/08/2022 7:26 PM EDTGender IdentityNot on fileSexual OrientationNot on file Last Filed Vital Signs Vital SignReadingTime TakenCommentsBlood Jzptmpvx446/62009/12/2023 10:23 AM EDT Qsldq838109/12/2023 10:23 AM SROXhbituqejrb38.4 ??C (97.5 ??F)09/12/2023 10:23 AM EDTRespiratory Cyxv664709/12/2023 10:23 AM EDTOxygen Saturation--Inhaled Oxygen Concentration--Jzyzyd012 kg (244 lb 6.4 oz)09/12/2023 10:23 AM XTMEvwcsc411.8 cm (5' 10 )07/20/2018 12:00 PM ESTBody Mass Index35.0707/20/2018 12:00 PM EST Plan of Treatment Not on file Insurance Care Teams Team MemberRelationshipSpecialtyStart Date Jose Danielson MD PCP - GeneralFamily Medicine09/12/23
--- OUTSIDE RECORDS SUMMARY | 2025-05-30 07:32 | XMS_ITS | Patient Health Record ---
Author Organization [facility] [place] Address [address] [place] [address] Care Team Providers Care Fire Observer Name Role Phone Jose Danielson Primary Care Provider [phone] Jay Doty Kamar [phone] Allergies Allergen (clinical drug ingredient) Drug/Non Drug Allergy documented on EMR Reaction Allergy Type Onset Date Status ciprofloxacin Ciprofloxacin Unknown Drug Allergy ActivePenicillinUnknownDrug AllergyActive Results Component Value Reference Range Notes COVID-19, Flu A+B IH Reviewed date:08/20/2024 02:02:41 PM Interpretation: Performing Lab: Notes/Report: COVID - FLU A+FLU B-Control+CREATININE Reviewed date:09/12/2024 07:49:34 PM Interpretation: Performing Lab: Notes/Report: [facility] ,Creatinine1.710.70-1.30 mg/dLEstimated GFR ( Quqvsbm32>=60 mL/min/1.73m 2Estimated GFR (Non- Ame39>=60 mL/min/1.73m 2Performing Lab:see note - [facility] LBMAGNESIUM Reviewed date:05/30/2024 07:24:41 PM Interpretation: Performing Lab: Notes/Report: [facility] ,Magnesium1.91.8-2.4 mg/dLPerforming Lab:see note - [facility] LB RENAL FUNCTION PANEL Reviewed date:05/30/2024 07:24:41 PM Interpretation: Performing Lab: Notes/Report: [facility] ,Wmvsoa668798-574 mmol/LPotassium4.73.5-5.1 mmol/ECyctlprl32794-160 mmol/LCarbon Hinthnl45.621.0-32.0 mmol/LAnion Gap17.8Bijvnyd18309-153 mg/dLBlood Urea Kchmgbxg46.07.0-18.0 mg/dLCreatinine1.820.70-1.30 mg/dLEstimated GFR ( Ordoadr32>=60 mL/min/1.73m 2Estimated GFR (Non- Ame36>=60 mL/min/1.73m 2 BUN Creatinine Ratio12.0Cmrggtn4.38.5-10.1 mg/dLPhosphorus3.12.6-4.7 mg/dL Albumin Level3.43.4-5.0 g/dLPerforming Lab:see noteML - [facility] LB UA RANDOM W or MICROSCOPIC Reviewed date:05/30/2024 07:24:41 PM Interpretation: Performing Lab: Notes/Report: [facility] ,Color UrineLT. YELLOWYELLOWClarity UrineCLEARCLEARSpecific [place] Urine1.015 1.005-1.025pH Urine6.05.0-9.0Protein UrineNEGATIVENEG/TRACE mg/dLGlucose Urine UANEGATIVENEGATIVE mg/dLBilirubin UrineNEGATIVENEGATIVEKetones UrineNEGATIVE NEGATIVE mg/dLBlood UrineNEGATIVENEGATIVENitrite UrineNEGATIVENEGATIVE Urobilinogen Urine0.20.2-1.0 EU/dLLeukocyte Esterase UrineNEGATIVENEGATIVEWBC UrineNONE SEENNONE SEEN #/HPFRBC UrineNONE SEEN0-2 #/HPFBacteria UrineNONE SEEN NONE SEEN #/HPFMucus UrineNONE SEENNONE SEENSquamous Epithelial Cell UrineRARE NONE/RARE #/LPFPerforming Lab:see noteML - [facility] LBURIC ACID SERUM Reviewed date:05/30/2024 07:24:41 PM Interpretation: Performing Lab: Notes/Report: [facility] ,Uric Acid7.53.5-7.2 mg/dLPerforming Lab:see noteML - [facility] LB URINE T PROTEIN CREAT RATIO Reviewed date:05/30/2024 07:24:41 PM Interpretation: Performing Lab: Notes/Report: [facility] ,Total Protein Urine Ifomhk51.5<=11.9 mg/dLCreatinine Urine Kkitew96.2320.00- 300.00 mg/dLProtein Creatinine Ratio Urine0.20Performing Lab:see noteML - [facility] LBPTH, Intact Reviewed date:05/31/2024 12:45:04 PM Interpretation: Performing Lab: Notes/Report: [facility] ,PTH, Wbwytj3209-23 pg/mL Performed at: [facility] [address] [id number] Healthcare Consulting Manager: Lee Bob PhD, Phone: [phone] Performing Lab:see note - [facility] LBXR ankle LT min 3V Reviewed date:06/11/2024 02:13:25 PM Interpretation: Performing Lab: Notes/Report: Source Facility: [place] [address] XRay Report Signed Patient: GLADYS SMYTH MR#: [id number] : 1940 Acct:[id number] Age/Sex: 83 / M ADM Date: 06/07/24 Loc: [facility] Attending Dr: rTay Danielson M.D. Ordering Physician: Tray Danielson M.D. Date of Service: 06/07/24 Procedure(s): XR ankle LT min 3V Accession Number(s): [id number] cc: Tray Danielson M.D. [place] [address] Patient Name: GLADYS SMYTH MRN: [id number] date: 1940 Sex: M Assigned Patient Location: [facility] Current Patient Location: Accession/Order Number: [id number] Exam Date: 06/07/2024 12:17 Report Date: 06/11/2024 [...] M.D. Signed By: 06/11/24716 DD/ 3 TD/TT: Sweater Operator:US renal BI Reviewed date:06/11/2024 02:13:25 PM Interpretation: Performing Lab: Notes/Report: Source Facility: [place] [address] Ultrasound Report Signed Patient: GLADYS SMYTH MR#: [id number] : 1940 Acct:[id number] Age/Sex: 83 / M ADM Date: 06/11/24 Loc: US Attending Dr: Srinivas Gonzalze M.D. Ordering Physician: Srinivas Gonzalez M.D. Date of Service: 06/11/24 Procedure(s): US renal BI Accession Number(s): [id number] cc: Srinivas Gonzalez M.D.; Tray Danielson M.D. [place] [address] Patient Name: GLADYS SMYTH MRN: [id number] date: 1940 Sex: M Assigned Patient Location: Current Patient Location: US Accession/Order Number: [id number] Exam Date: 06/11/2024 07:00 Report Date: 06/11/2024 [...] Signed By: 06/11/24 0751 DD/ 0748 TD/TT: Sweater Operator:CT abdomen pelvis w con Reviewed date:09/12/2024 07:49:34 PM Interpretation: Performing Lab: Notes/Report: Source Facility: [place] [address] CT Scan Report Signed Patient: GLADYS SMYTH MR#: [id number] : 1940 Acct:[id number] Age/Sex: 84 / M ADM Date: 09/12/24 Loc: LAB Attending Dr: Tray Danielson M.D. Ordering Physician: Tray Danielson M.D. Date of Service: 09/12/24 Procedure(s): CT abdomen pelvis w con Accession Number(s): [id number] cc: Tray Danielson M.D. [place] [address] Patient Name: GLADYS SMYTH MRN: [id number] date: 1940 Sex: M Assigned Patient Location: LAB Current Patient Location: LAB Accession/Order Number: [id number] Exam Date: 09/12/2024 12:26 Report Date: 09/12/2024 [...] Perez Jr., D.O.09/12/2024 12:33 PM Dictation Location: [place] [address] Electronically authenticated by: [id number] Y Date: 09/12/2024 12:33 Dictated By: Ifeanyi Perez M.D. Signed By: 09/12/24 1236 DD/ 1233 TD/TT: Sweater Operator:MAGNESIUM Reviewed date:11/27/2024 04:11:10 PM Interpretation: Performing Lab: Notes/Report: [facility] ,Magnesium1.81.8-2.4 mg/dLPerforming Lab:see noteML - [facility] LB RENAL FUNCTION PANEL Reviewed date:11/27/2024 04:11:10 PM Interpretation: Performing Lab: Notes/Report: [facility] ,Ippewd431614-018 mmol/LPotassium4.73.5-5.1 mmol/NZznsnytk45894-136 mmol/LCarbon Btwgznb05.521.0-32.0 mmol/LAnion Gap16.2Tlvkgvn72579-277 mg/dLBlood Urea Jjcatklh66.07.0-18.0 mg/dLCreatinine1.700.70-1.30 mg/dLEstimated GFR ( Vhmiwtl76>=60 mL/min/1.73m 2Estimated GFR (Non- Ame39>=60 mL/min/1.73m 2 BUN Creatinine Ratio13.6Dnbgaho6.28.5-10.1 mg/dLPhosphorus3.92.6-4.7 mg/dL Albumin Level3.33.4-5.0 g/dLPerforming Lab:[facility] LB URIC ACID SERUM Reviewed date:11/27/2024 04:11:10 PM Interpretation: Performing Lab: Notes/Report: [facility] ,Uric Acid6.83.5-7.2 mg/dLPerforming Lab:see [facility] LB VITAMIN D 25 [place] Reviewed date:11/27/2024 04:11:10 PM Interpretation: Performing Lab: Notes/Report: [facility] ,Vitamin D70.4 <20 ng/mL Vit D deficient 20-<30 ng/mL Vit D insufficient 30-100 ng/mL Vit D sufficient >100 ng/mL Potential Toxicity Performing Lab:see [facility] LBCBC no Diff (Hemogram) Reviewed date:11/27/2024 04:11:10 PM Interpretation: Performing Lab: Notes/Report: [facility] ,White Blood Count6.04.0-11.0 10 3/uLRed Blood Count3.844.70-6.10 10 6/uL Wdbdraktwk25.514.0-18.0 g/pLUxhybpwpyw35.042.0-54.0 %Mean Corpuscular Volume 104.280.0-94.0 fLMean Corpuscular Ghtfiwzkyx56.225.9-34.0 pgMean Corpuscular HGB Conc33.829.9-35.2 g/dLRed Cell Distribution Width13.211.0-15.0 %Platelet Count 940199-704 10 3/uLMean Platelet Dlkfuj45.79.5-13.5 fLPerforming Lab:see [facility] LBPTH, Intact Reviewed date:11/28/2024 09:18:57 PM Interpretation: Performing Lab: Notes/Report: [facility] ,PTH, Xapzbw7612-25 pg/mL Performed at: - [facility] [address] [id number] Healthcare Consulting Manager: Lee Bob PhD, Phone: [phone] Performing Lab:see note - [facility] LBNM brie perf SPECT rest str Reviewed date:12/19/2024 09:04:16 PM Interpretation: Performing Lab: Notes/Report: Source Facility: [place] [address] Nuclear Medicine Report Signed Patient: GLADYS SMYTH MR#: [id number] : 1940 Acct:[id number] Age/Sex: 84 / M ADM Date: 12/12/24 Loc: CARD Attending Dr: Tray Danielson M.D. Ordering Physician: Tray Danielson M.D. Date of Service: 12/12/24 Procedure(s): NM brie perf SPECT rest str Accession Number(s): [id number] cc: Tray Danielson M.D. Patient Name: GLADYS SMYTH MR#: [id number] : 1940 Exam Date: 12/12/2024 Ordering Doctor: [...] the study was pending per attending physician [facility] . For more details please see separate [...] stress test is reported separate Dictated by: uMndo Lee MD on 12/18/2024 at 15:38 Approved by: Mundo Lee MD on 12/18/2024 at 15:42 Dictated By: Mundo Lee M.D. Signed By: 12/18/24 1543 DD/ 1542 TD/TT: Sweater Operator:CA echo doppler complete Reviewed date:12/26/2024 07:07:14 PM Interpretation: Performing Lab: Notes/Report: Source Facility: [place] [address] Cardiology Report Signed Patient: GLADYS SMYTH MR#: [id number] : 1940 Acct:[id number] Age/Sex: 84 / M ADM Date: 12/26/24 Loc: CARD Attending Dr: Tray Danielson M.D. Ordering Physician: Tray Danielson M.D. Date of Service: 12/26/24 Procedure(s): CA echo doppler complete Accession Number(s): [id number] cc: Tray Danielson M.D. Patient Name: GLADYS SMYTH MR#: [id number] : 1940 Exam Date: 12/26/2024 Ordering Doctor: [...] M.D. Signed By: 12/26/241821 DD/ 20 TD/TT: Sweater Operator:PROF JAZMIN Wu ([facility]) Reviewed date:01/02/2025 06:35:37 PM Interpretation: Performing Lab: Notes/Report: [facility] ,Pemzwf615499-508 mmol/LPotassium5.03.5-5.1 mmol/CLcwazvsi40418-951 mmol/LCarbon Bakpyxi04.821.0-32.0 mmol/LAnion Gap18.6Ubhuwcm02102-710 mg/dLBlood Urea Eypmqina76.07.0-18.0 mg/dLCreatinine2.320.70-1.30 mg/dLEstimated GFR ( Dqchngb36>=60 mL/min/1.73m 2Estimated GFR (Non- Ame27>=60 mL/min/1.73m 2 BUN Creatinine Ratio17.4Rysmyve3.78.5-10.1 mg/dLPerforming Lab:see noteML - [facility] LBITP Reviewed date:03/13/2025 06:03:15 PM Interpretation: Performing Lab: Notes/Report: Source Facility: [facility]-[address] [place] [address] [place] [address] Cardiac Rehab Report Signed Patient: GLADYS SMYTH MR#: [id number] : 1940 Acct:[id number] Age/Sex: 84 / M ADM Date: 03/12/25 Loc: CR Attending Dr: JENNIFER LEYVA Ordering Physician: JENNIFER LEYVA Date of Service: 02/26/25 Procedure(s): ITP Accession Number(s): [id number] cc: [facility] Test Date: 2025-02-26 Pat Name: GLADYS SMYTH Department: Room: - Gender: Male Sheet Rock 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 Order Number: [id number] Katja MD: JENNIFER LEYVA M.D. Interpretive Statements Patient may start cardiac rehab as outlined in the treatment plan. Electronically Signed On 03-13-2025 17:58:49 EDT by JENNIFER LEYVA M.D. Dictated By: JENNIFER LEYVA Signed By: 03/13/25175803/13/251758 DD/ 8 TD/TT: Sweater Operator:PROF JAZMIN Wu ([facility]) Reviewed date:02/27/2025 01:01:01 PM Interpretation: Performing Lab: Notes/Report: [facility] ,Ttwbyj894270-880 mmol/LPotassium5.13.5-5.1 mmol/KIuufsblc25920-993 mmol/LCarbon Xwrgesn62.521.0-32.0 mmol/LAnion Gap15.0Dryruux5272-405 mg/dLBlood Urea Eeqnjyek36.07.0-18.0 mg/dLCreatinine2.250.70-1.30 mg/dLEstimated GFR ( Fjmfiej49>=60 mL/min/1.73m 2Estimated GFR (Non- Ame28>=60 mL/min/1.73m 2 BUN Creatinine Ratio16.3Htccopi9.18.5-10.1 mg/dLPerforming Lab:see noteML - [facility] LBITP Reviewed date:03/18/2025 08:52:35 PM Interpretation: Performing Lab: Notes/Report: Source Facility: [facility]-[address] [place] [address] [place] [address] Cardiac Rehab Report Signed Patient: GLADYS SMYTH MR#: [id number] : 1940 Acct:[id number] Age/Sex: 84 / M ADM Date: 03/14/25 Loc: CR Attending Dr: JENNIFER LEYVA Ordering Physician: JENNIFER LEYVA Date of Service: 03/18/25 Procedure(s): ITP Accession Number(s): [id number] cc: [facility] Test Date: 2025-03-18 Pat Name: GLADYS SMYTH Department: Room: - Gender: Male Sheet [place] Sander: : 1940 Requested By: JENNIFER LEYVA M.D. Order Number: [id number] Katja MD: JENNIFER LEYVA M.D. Interpretive Statements Patient may continue cardiac rehab as outlined in the treatment plan. Electronically Signed On 03-18-2025 17:19:47 EDT by JENNIFER LEYVA M.D. Dictated By: JENNIFER LEYVA Signed By: 03/18/25171903/18/251719 DD/ 3 TD/TT: Sweater Operator:NIRAV Reviewed date:04/15/2025 07:57:06 PM Interpretation: Performing Lab: Notes/Report: Source Facility: [place] [address] Cardiac Rehab Report Signed Patient: GLADYS SMYTH MR#: [id number] : 1940 Acct:[id number] Age/Sex: 84 / M ADM Date: 04/11/25 Loc: CR Attending Dr: JENNIFER LEYVA Ordering Physician: JENNIFER LEYVA Date of Service: 04/15/25 Procedure(s): ITP Accession Number(s): [id number] cc: [facility] Test Date: 2025-04-15 Pat Name: GLADYS SMYTH Department: Room: - Gender: Male Sheet [place] Sander: : 1940 Requested By: JENNIFER LEYVA M.D. Order Number: [id number] Katja MD: JENNIFER LEYVA M.D. Interpretive Statements Patient may continue cardiac rehab as outlined in the treatment plan. Electronically Signed On 04-15-2025 18:05:28 EDT by JENNIFER LEYVA M.D. Dictated By: JENNIFER LEYVA Signed By: 04/15/25180404/15/251804 DD/ 0844 TD/TT: Sweater Operator:NIRAV Reviewed date:05/16/2025 07:49:21 PM Interpretation: Performing Lab: Notes/Report: Source Facility: [place] [address] Cardiac Rehab Report Signed Patient: GLADYS SMYTH MR#: [id number] : 1940 Acct:[id number] Age/Sex: 84 / M ADM Date: 05/16/25 Loc: CR Attending Dr: JENNIFER LEYVA Ordering Physician: JENNIFER LEYVA Date of Service: 05/16/25 Procedure(s): [facility] Accession Number(s): [id number] cc: [facility] Test Date: 2025-05-16 Pat Name: GLADYS SMYTH Department: Room: - Gender: Male [place] Sander: : 1940 Requested By: JENNIFER LEYVA M.D. Order Number: [id number] Katja MD: JENNIFER LEYVA M.D. Interpretive Statements Patient may continue cardiac rehab as outlined in the treatment plan. Electronically Signed On 05-16-2025 19:28:45 EST by JENNIFER LEYVA M.D. Dictated By: JENNIFER LEYVA Signed By: 05/16/25192805/16/251928 DD/ 1326 TD/TT: Sweater Operator:US harry FORTE Reviewed date:12/25/2024 06:55:02 PM Interpretation: Performing Lab: Notes/Report: Source Facility: [place] [address] Ultrasound Report Signed Patient: GLADYS SMYTH MR#: [id number] : 1940 Acct:[id number] Age/Sex: 84 / M ADM Date: 12/25/24 Loc: US Attending Dr: Tray Danielson M.D. Ordering Physician: Tray Danielson M.D. Date of Service: 12/25/24 Procedure(s): US renal BI Accession Number(s): [id number] cc: Tray Danielson M.D. [place] [id number] Patient Name: GLADYS SMYTH MRN: [id number] date: 1940 Sex: M Assigned Patient Location: US Current Patient Location: US Accession/Order Number: [id number] Exam Date: 12/25/2024 11:16 Report Date: 12/25/2024 [...] Hui M.D. 12/25/2024 11:20 AM Dictation Location: [place] [address] Electronically authenticated by: [id number] Y Date: 12/25/2024 11:20 Dictated By: Anna Hui M.D. Signed By: 12/25/24 1123 DD/ 1120 TD/TT: Sweater Operator:Troponin I High Sensitivity Reviewed date:12/13/2024 06:55:10 PM Interpretation: Performing Lab: Notes/Report: [facility] ,Troponin I High Sensitivity6.24.0-76.1 pg/mL CUT-OFF POINTS HAVE BEEN ESTABLISHED BASED ON THE FOURTH UNIVERSAL DEFINITION OF MYOCARDIAL INFARCTION. THE UPPER REFERENCE LIMIT (URL) OF TROPONIN, DEFINED THE 99TH PERCENTILE OF cTnI DISTRIBUTION IN A REFERENCE POPULATION, HAS BEEN CONFIRMED THE DECISION THRESHOLD FOR UT DIAGNOSIS. 99TH PERCENTILE = 76.2 PG/ML NOTE: HIGH-SENSITIVITY TROPONIN ASSAY IS NOT INTENDED TO BE USED IN ISOLATION BUT SHOULD BE INTERPRETED IN CONJUNCTION WITH OTHER DIAGNOSTIC AND CLINICAL INFORMATION. Performing Lab:see noteML - [facility] LBURINE T PROTEIN CREAT RATIO Reviewed date:11/27/2024 04:11:10 PM Interpretation: Performing Lab: Notes/Report: [facility] ,Total Protein Urine Aipnxb43.1<=11.9 mg/dLCreatinine Urine Fqypve298.7320.00- 300.00 mg/dLProtein Creatinine Ratio Urine0.18Performing Lab:see note - [facility] LBUA RANDOM W or MICROSCOPIC Reviewed date:11/27/2024 04:11:10 PM Interpretation: Performing Lab: Notes/Report: [facility] ,Color UrineYELLOWYELLOWClarity UrineCLEARCLEARSpecific [place] Urine1.025 1.005-1.025pH Urine6.05.0-9.0Protein UrineTRACENEG/TRACE mg/dLGlucose Urine UA NEGATIVENEGATIVE mg/dLBilirubin UrineNEGATIVENEGATIVEKetones UrineNEGATIVE NEGATIVE mg/dLBlood UrineNEGATIVENEGATIVENitrite UrineNEGATIVENEGATIVE Urobilinogen Urine0.20.2-1.0 EU/dLLeukocyte Esterase UrineNEGATIVENEGATIVEWBC Urine0-2NONE SEEN #/HPFRBC UrineNONE SEEN0-2 #/HPFBacteria UrineNONE SEENNONE SEEN #/HPFMucus UrineMODERATENONE SEENSquamous Epithelial Cell UrineRARE NONE/RARE #/LPFCrystals Seen?None SeenNone Seen #/HPFCast Seen?NONE SEENNONE SEEN #/LPFPerforming Lab:see noteML - [facility] LBCBC no Diff (Hemogram) Reviewed date:05/30/2024 07:24:41 PM Interpretation: Performing Lab: Notes/Report: [facility] ,White Blood Count6.84.0-11.0 10 3/uLRed Blood Count4.154.70-6.10 10 6/uL Jbiustildh86.314.0-18.0 g/yGEwbalxnaro68.542.0-54.0 %Mean Corpuscular Volume 102.480.0-94.0 fLMean Corpuscular Vqiiqexcni14.525.9-34.0 pgMean Corpuscular HGB Conc33.629.9-35.2 g/dLRed Cell Distribution Width13.411.0-15.0 %Platelet Count 806695-442 10 3/uLMean Platelet Nmbotu27.29.5-13.5 fLPerforming Lab:see noteML - [facility] LBVITAMIN D 25 [place] Reviewed date:05/30/2024 07:24:41 PM Interpretation: Performing Lab: Notes/Report: [facility] ,Vitamin D64.6 <20 ng/mL Vit D deficient 20-<30 ng/mL Vit D insufficient 30-100 ng/mL Vit D sufficient >100 ng/mL Potential Toxicity Performing Lab:see noteML - [facility] LBPROF 14(COMP METB) Reviewed date:12/13/2024 06:55:10 PM Interpretation: Performing Lab: Notes/Report: [facility] ,Emrjwc501902-043 mmol/LPotassium4.33.5-5.1 mmol/WBwedoqbn07429-341 mmol/LCarbon Vqhiaur70.421.0-32.0 mmol/LAnion Gap12.7Ttqsoqu43698-441 mg/dLBlood Urea Gbdhyagz40.07.0-18.0 mg/dLCreatinine1.640.70-1.30 mg/dLEstimated GFR ( Xrlmejn15>=60 mL/min/1.73m 2Estimated GFR (Non- Ame40>=60 mL/min/1.73m 2 BUN Creatinine Ratio14.8Kqbuilv3.78.5-10.1 mg/dLBilirubin Total0.80.2-1.0 mg/dL Aspartate Amino Oldvfnsazvv4354-70 U/LAlanine Yqqekcfcgyzlctoc0794-26 U/L Alkaline Romjycpydkq3285-530 U/LTotal Protein6.26.4-8.2 g/dLAlbumin Level3.33.4- 5.0 g/dLGlobulin2.9Albumin Globulin Ratio1.1Performing Lab:see noteML - [facility] LBCBC AUTO DIFF Reviewed date:12/13/2024 06:55:10 PM Interpretation: Performing Lab: Notes/Report: [facility] ,White Blood Count6.04.0-11.0 10 3/uLRed Blood Count3.814.70-6.10 10 6/uL Sxfoyqkzhs63.414.0-18.0 g/kZOpqzwqeemf77.642.0-54.0 %Mean Corpuscular Volume 103.980.0-94.0 fLMean Corpuscular Uczqdttssa71.225.9-34.0 pgMean Corpuscular HGB Conc33.829.9-35.2 g/dLRed Cell Distribution Width13.111.0-15.0 %Platelet Count 036884-967 10 3/uLMean Platelet Gnxerg97.69.5-13.5 fLNeutrophils Percent Auto 66.343.0-75.0 %Lymphocytes Percent Auto18.420.5-60.0 %Monocytes Percent Auto10.1 1.7-12.0 %Eosinophils Percent Auto4.00.9-7.0 %Basophils Percent Auto0.50.2-2.0 % Immature Granulocytes Pct Auto0.70.0-0.5 %Neutrophils Absolute Auto4.01.4-6.5 10 3/uLLymphocytes Absolute Auto1.11.2-3.8 10 3/uLMonocytes Absolute Auto0.60.3- 0.8 10 3/uLEosinophils Absolute Auto0.20.0-0.7 10 3/uLBasophils Absolute Auto0.0 0.0-0.1 10 3/uLImmature Granulocytes Abs Auto0.040.00-0.03 10 3/uLPerforming Lab:see noteML - [facility] LBBNP Reviewed date:12/13/2024 06:55:10 PM Interpretation: Performing Lab: Notes/Report: [facility] ,NT Pro B Type Natriuretic Shix794.0<=1800.0 pg/mLPerforming Lab:see noteML - [facility] LBITP Reviewed date:02/25/2025 02:05:23 PM Interpretation: Performing Lab: Notes/Report: Source Facility: [facility]-[address] [place] [address] [place] [address] Cardiac Rehab Report Signed Patient: GLADYS SMYTH MR#: [id number] : 1940 Acct:[id number] Age/Sex: 84 / M ADM Date: 02/20/25 Loc: CR Attending Dr: JENNIFER LEYVA Ordering Physician: JENNIFER LYEVA Date of Service: 02/20/25 Procedure(s): ITP Accession Number(s): [id number] cc: [facility] Test Date: 2025-02-20 Pat Name: GLADYS SMYTH Department: Room: - Gender: Male [place] Sander: : 1940 Requested By: JENNIFER LEYVA M.D. Order Number: [id number] Reading MD: Mundo Lee Interpretive Statements Session Date: Electronically Signed On 02-22-2025 13:28:36 EDT by Mundo Lee Dictated By: Mundo Lee M.D. Signed By: 02/22/258 02/22/25 1328 DD/ 1513 TD/TT: Sweater Operator: Reason For Referral No Information Medications Medication SIG (Take, Route, Frequency, Duration) Notes Start Date End Date Status Accu-Chek Nevaeh Plus - USE 1 STRIP ONCE DAILY TO TEST BLOOD SUGAR IN VITRO; Duration: 90 ActiveLiothyronine Sodium 5 MCGTAKE 1 TABLET BY MOUTH ON AN EMPTY STOMACH ONCE DAILY; Duration: 90ActiveLevothyroxine Sodium 50 MCGTAKE 1 TABLET BY MOUTH ONCE DAILY IN THE MORNING ON AN EMPTY STOMACH; Duration: 90ActiveNitrostat 0.4 MGas directed SublingualActiveMetoprolol Tartrate 50 MG1 tablet with food Orally Twice a dayActiveMagnesium Oxide 400 MG1 tablet as needed Orally Once a day ActiveRanolazine ER 1000 MG1 tablet Orally Twice a day; Duration: 90 daysActive Lisinopril 20 MG1 tablet Orally Once a dayActiveLevsin/SL 0.125 MG1 tablet under the tongue and allow to dissolve as needed Sublingual AC and HS07/19/2023ctive Pioglitazone HCl 15 MGTAKE 1 TABLET BY MOUTH ONCE DAILY; Duration: 90Active Ketoconazole 2 %1 application Externally Once a dayActiveIsosorbide Mononitrate ER 120 MG2 tablets Orally Once a day; Duration: 90 daysActiveGlucosamine Chondr 500 Complex -as directed Orally BIDActiveGlimepiride 2 MG1 tablet Orally twice daily; Duration: 90 daysActiveB Complex -as directed Orally DailyActive Atorvastatin Calcium 80 MG1 tablet Orally Once a dayActiveAspirin 81 81 MG1 tablet Orally Once a dayActiveamLODIPine Besylate 2.5 MG1 tablet Orally Once a day; Duration: 90 daysActiveAlbuterol Sulfate 108 (90 Base) MCG/ACT2 puffs as needed for SOB Inhalation Q4H; Duration: 30 daysActiveVitamin D3 125 MCG (5000 UT)1 capsule Orally DailyActiveAccu-Chek Multiclix LancetsUse 1 lancet once daily to test blood sugar. Dx: E11.9; Duration: 100 daysActiveTriamcinolone Acetonide 0.1 %1 application Externally Two times a WeekActiveTerbinafine HCl 250 MG1 tablet Orally Once a day; Duration: 30 days03/07/2024ctiveSpiriva Respimat 2.5 MCG/ACT2 puffs Inhalation QD; Duration: 90 daysActiveJanuvia 100 MG TAKE 1 TABLET BY MOUTH ONCE DAILY; Duration: 90Active Immunizations Vaccine Route Administration Date Status Comme nts Arexvy Unknown 03/06/2024 Administered [facility] Syringe Pre-Filled 30 mcg/0.3 cWSxfovpz52/10/2024dministered Flu, Fluad (6246-6515) (50027) 65 yrs+, single-dose syringeIM Intramuscular 03/23/2023dministeredFlu, Fluad (32058) 65 yrs + High Dose Seasonal (7537-3221) Dvwmggx4803/06/2024dministeredPneumococcal (Prevnar 13)Tceopsy8604/05/2017 AdministeredPneumococcal (Prevnar 20)Ijwvmbq1005/02/2023dministeredSpikevax Moderna Syringe Pre-Filled 50 mcg/0.5 vWYlcaems33/28/2023AdministeredTdap (Boostrix)Qcflnra92/06/2023AdministeredZOSTER (SHINGLES) VACCINE (HZV)Unknown 02/05/2020Administered Social History Tobacco Use: Social History Observation Description Date Details (start date - stop date) Former Smoker NA - NA Tobacco Use/Smoking Question Answer Notes Patient is a former smoker When did you start smoking?06/27/1958When did you stop smoking?06/27/1978How long has it been since you last smoked?> 10 yearsAdditional Findings: Tobacco Non-UserCurrent non-smokerTobacco Control (Standard) Question Answer Notes Tobacco use: Former smoker How long has it been since you last smoked?Greater than 10 yearsAdditional Findings: Tobacco ugk-rgsiVj-ngryowgn cigarette smoker (10-19/day)AUDIT-C (Standard) Question Answer Notes Did you have a drink containing alcohol in the p ast year? No Etmijd0FumvoxccwsuudfAfpedgwa Problems Problem Type SNOMED Code ICD Code Onset Dates Problem Status W/U Status Risk Notes Problem Chronic kidney disease (76129308 4) Chronic kidney disease, unspecified (N18.9) ActiveconfirmedProblemMorbid obesity (disorder) (890394085)Morbid (severe) obesity due to excess calories (E66.01)ActiveconfirmedProblemHypocalcemia (0999918)Hypocalcemia (E83.51)ActiveconfirmedProblemDisorder of prostate (68885556)Disorder of prostate, unspecified (N42.9)ActiveconfirmedProblem Weakness (16226816)Weakness (R53.1)ActiveconfirmedProblemOnychomycosis caused by dermatophyte (163903701)OM (onychomycosis) (B35.1)ActiveconfirmedProblem Hyperlipidemia (16689214)Hyperlipidemia (E78.5)ActiveconfirmedProblem Hypertension (45717368)Hypertension (I10)ActiveconfirmedProblemCOPD - Chronic obstructive pulmonary disease (91352780)COPD (chronic obstructive pulmonary disease) (J44.9)ActiveconfirmedProblemHypothyroidism (99994540)Hypothyroidism (E03.9)ActiveconfirmedProblemCarpal tunnel syndrome (91800735)Carpal tunnel syndrome (G56.00)ActiveconfirmedProblemCoronary artery disease (49423010)CAD (coronary artery disease) (I25.10)ActiveconfirmedProblemCoronary artery disease (49830965)Coronary artery disease (I25.10)ActiveconfirmedProblemLeft ventricular hypertrophy (48881599)Left ventricular hypertrophy (I51.7)Activeconfirmed ProblemDiabetes mellitus type 2 (disorder) (01781782)DM2 (diabetes mellitus, type 2) (E11.9)ActiveconfirmedProblemKidney stone (83378171)Kidney stone (N20.0) ActiveconfirmedProblemNephrolithiasis (47238684)Nephrolithiasis (N20.0)Active confirmedProblemRight lower quadrant pain (177262636)Right lower quadrant abdominal pain (R10.31)ActiveconfirmedProblemAcquired hypothyroidism (073130508) Acquired hypothyroidism (E03.9)ActiveconfirmedProblemAppendicitis (96328123) Appendicitis (K37)ActiveconfirmedProblemObstructive uropathy (0410593) Obstructive uropathy (N13.9)ActiveconfirmedProblemPre-surgery evaluation (769413408)Pre-op exam (Z01.818)ActiveconfirmedProblemDiverticulitis (15728964) Diverticulitis (K57.92)ActiveconfirmedProblemHemorrhoids (40526556)Hemorrhoids (K64.9)ActiveconfirmedProblemPyelonephritis (36019739)Pyelonephritis (N12)Active confirmedProblemArthralgia of the ankle and/or foot (916984418)Left ankle pain (M25.572)ActiveconfirmedProblemAcute sinusitis (31601050)Acute sinus infection (J01.90)ActiveconfirmedProblemBenign prostatic hyperplasia (933284728)Benign prostatic hyperplasia (N40.0)ActiveconfirmedProblemOverweight (267196011)Over weight (E66.3)ActiveconfirmedProblemDyshidrotic eczema (957139310)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)ActiveconfirmedProblemHydronephrosis (47105958)Hydronephrosis (N13.30)ActiveconfirmedProblemEx-tobacco user (finding) (968651605)History of tobacco abuse (Z87.891)ActiveconfirmedProblemOld myocardial infarction (9485818) History of ST elevation myocardial infarction (STEMI) (I25.2)Activeconfirmed ProblemAdenocarcinoma of prostate (922947877)Adenocarcinoma of prostate (C61) ActiveconfirmedProblemCholesteatoma (768785)Cholesteatoma (H71.90)Active confirmedProblemShoulder impingement syndrome (158196108)Shoulder impingement syndrome (M75.40)ActiveconfirmedProblemBenign neoplasm of colon (44044171)Colon polyp, hyperplastic (K63.5)ActiveconfirmedProblemLeukocytosis (117585865) Elevated WBCs (D72.829)ActiveconfirmedProblemEssential hypertension (58307064)BP (high blood pressure) (I10)ActiveconfirmedProblemAcute nontraumatic kidney injury (156768707819790)Acute nontraumatic kidney injury (N17.9)Activeconfirmed ProblemDiabetic renal disease (565386208)Chronic kidney disease due to diabetes mellitus (E11.22)ActiveconfirmedProblemDiabetes mellitus (96223283)Diabetes mellitus (E11.9)ActiveconfirmedProblemChronic kidney disease stage 3B (disorder) (071178329)Chronic kidney disease, stage 3b (N18.32)Activeconfirmed Vital Signs Temperature 101.2 degrees Fahrenheit 08/20/2024 Blood pressure phmaqfypn17 mm Hg12/06/20243954Cznlpr24 in12/06/2024lood pressure qzccotrb175 mm Hg12/06/20245749Yfgnhj090.6 lbs12/06/2024BMI40.84 kg/m212/06/2024 Procedures Procedure Date Ordered Date Performed Result Body Sit e CARDIO Echocardiogram 12/06/2024 N/A*CARDIO Stress Test - Lexiscan Uzsbvyb2412/06/2024N/A Encounters Encounter Location Date Provider Diagnosis [facility] [address] [place] [address] 08/03/2024 Jose Danielson Chronic kidney disea se, stage 3b N18.32 ; DM2 (diabetes mellitus, type 2) E11.9 ; Diabetes mellitus E11.9 ; Morbid (severe) obesity due to excess calories E66.01 ; 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 ; COPD (chronic obstructive pulmonary disease) J44.9 and De Quervain's disease (tenosynovitis) M65.[address] [address] 08/20/2024 Jose Hoy Fever R50.9 and Acut e bronchitis, unspecified organism J20.[address] [address] 09/05/2024 Jose Chany DM2 (diabetes mellit , type 2) E11.9 ; Hypothyroidism E03.9 ; Hyperlipidemia E78.5 ; Hypertension I10 and Appendicitis K37 [address] [address] 12/06/2024 Jose Chany DM2 (diabetes mellit , type 2) E11.9 ; History of ST elevation myocardial infarction (STEMI) I25.2 ; Hypothyroidism E03.9 ; Over weight E66.3 ; Hyperlipidemia E78.5 ; Coronary artery disease I25.10 and Hypertension I10 [address] [address] 06/07/2024 Jose Chany Left ankle pain M25. 572 ; DM2 (diabetes mellitus, type 2) E11.9 ; Hypothyroidism E03.9 ; Hyperlipidemia E78.5 ; COPD (chronic obstructive pulmonary disease) J44.9 and BP (high blood pressure) I10 [address] [address] 06/11/20[address] Jose [address]any [address] [address] 09/06/2024Doug HoyEncounter for other preprocedural examination Z01.[address] [place] [address]/ [facility] [place] [facility] [place] [address]/[facility] [place] [facility] [place] [address]/[facility] [place] [facility] [place] [address]/06/2024[facility] [place] [place] [address]/07/2024[facility] [place] [place] [address]/12/2024 [facility] [place] [place] [place] [address]/02/2025[facility] [place] [place] [address]/05/2025[facility] Assessments Encounter Date Diagnosis (ICD Code) Assessment Notes Treatment Notes Treatment Clinical Notes Section Notes 06/07/2024 Left ankle pain (ICD-10 - M25.57 2) 4DM2 (diabetes mellitus, type 2) (ICD-10 - E11.9)09/05/2024DM2 (diabetes mellitus, type 2) (ICD-10 - E11.9)09/05/2024Hypothyroidism (ICD-10 - E03.9)08/03/2024hronic kidney disease, stage 3b (ICD-10 - N18.32)following labs 08/03/2024DM2 (diabetes mellitus, type 2) (ICD-10 - E11.9)12/06/2024DM2 (diabetes mellitus, type 2) (ICD-10 - E11.9)12/06/2024History of ST elevation myocardial infarction (STEMI) (ICD-10 - I25.2)09/06/2024Encounter for other preprocedural examination (ICD-10 - Z01.818)08/20/2024Fever (ICD-10 - R50.9) 02/24/2025Acute bronchitis, unspecified organism (ICD-10 - J20.9)Rest and drink more liquids, especially water. You may use a humidifier or vaporizer to help keep the drainage moist. Tsul-ytq-vmnvriz Nasal Saline may help the stuffy and runny nose. Use Ibuprofen and or Tylenol as needed for fever, chills, body aches or pain. Children 5 years old should not be given camm-iec-kczrzwk cough and cold medications such as guaifenesin and dextromethorphan. If you're over age 5, you may try oxtc-kek-niwqlyv cold medications such as guaifenesin and dextromethorphan, or multi-symptom cold reliever such as Dayquil to help reduce the symptoms. Antibiotics have been prescribed. You should take these until completed and follow the directions. Antibiotics can sometimescause upset stomach, and in rare cases, serious [...] go to the emergency room [place] [phone] Hypothyroidism (ICD-10 - E03.9)08/03/2024Diabetes mellitus (ICD-10 - E11.9) [facility] 112 awsowcjlv19/12/2025Hyperlipidemia (ICD-10 - E78.5)06/07/2024Hypothyroidism (ICD-10 - E03.9)06/07/2024Hyperlipidemia (ICD-10 - E78.5)09/05/2024Hypertension (ICD-10 - I10)08/03/2024Morbid (severe) obesity due to excess calories (ICD-10 - E66.01)bygoaxantfr09/12/2025Over weight (ICD-10 - E66.3)12/06/2024Hyperlipidemia (ICD-10 - E78.5)08/03/2024hronic kidney disease due to diabetes mellitus (ICD-10 - E11.22)5Appendicitis (ICD-10 - K37)4COPD (chronic obstructive pulmonary disease) (ICD-10 - J44.9) 4BP (high blood pressure) (ICD-10 - I10)5COPD (chronic obstructive pulmonary disease) (ICD-10 - J44.9)12/06/2024oronary artery disease (ICD-10 - I25.10)12/06/2024Hypertension (ICD-10 - I10)08/03/2024De Quervain's disease (tenosynovitis) (ICD-10 - M65.4) Plan Of Treatment Pending Test Test Name Order Date CMP (COMPLETE METABOLIC PANEL) 3 CMP (COMPLETE METABOLIC PANEL) 3 CMP (COMPLETE METABOLIC PANEL) 4 HEMOGLOBIN A1C (GLYCO) 11/03/2022 HEMOGLOBIN A1C (GLYCO) 03/23/2023 HEMOGLOBIN A1C (GLYCO) 09/05/2024 INSULIN, TOTAL 11/03/2022 LIPID PANEL (CHOL/TRIG/HDL/LDL) 03/23/20 23 LIPID PANEL (CHOL/TRIG/HDL/LDL) 11/04/19 23 LIPID PANEL (CHOL/TRIG/HDL/LDL) 09/06/19 25 CBC WITH DIFF (EXP 04/2025) 11/03/2022 CBC WITH DIFF (EXP 04/2025) 03/23/2023 PSA, PROSTATE-SPECIFIC ANTIGEN 3 PSA, PROSTATE-SPECIFIC [...] Date [employer] MEDICARE [address] [address] [place] [address] [phone] [id number] Smyth Gladys Self - patient is the insured 3 Medications Administered Medication Instructions Date of Administration Dosage Notes Dexamethasone, 4mg/mL mgDexamethasone, 4mg/mL81764Njitsiwne Wxwhqoraofmj49/07/114356 mgTriamcinolone 40 mg/ml580 mg Medical (General) History Medical History History [...] History Surgery Date(Month/Year) Hernia Repair- mesh Heart stentProstate ScrapedKidney stone blast, removal- multiplecarpal tunnel releasedrained sgjacqzg4239Qdqlhserqnl- Dr Alvarado10/18/23Right Heart Cath12/27/24 Hospitalization History Reason Date(Month/Year) Appendicitis 06/2023 Kidney Failure 08/19
--- OUTSIDE RECORDS SUMMARY | 2025-05-30 07:32 | XMS_ITS | Clinical Summary ---
Author Organization [facility] Address [address] [place] [address] Phone Care Team Providers Care Assistant Prosecuting Attorney Name Role Phone Unavailable Primary Care Provider Unavailabl e Social History Tobacco UseTypesPacks/DayYears UsedDateSmoking Tobacco: Never AssessedSex and Gender InformationValueDate RecordedSex Assigned at BirthNot on fileLegal Sex Male05/22/2022 7:44 AM ESTGender IdentityNot on fileSexual OrientationNot on file Plan of Treatment Health MaintenanceDue DateLast DoneCommentsLipid Panel1942Yearly Adult Xldowuey07/04/1943DTaP/Tdap/Td Vaccines (1 - Tdap)1964Pneumococcal Vaccine (1 of 1 - PCV)1992Zoster Vaccines (1 of 2)1992RSV High Risk: (Elderly (60+) or Population) (1 - 1-dose 75+ series)2017 Influenza Vaccine (#1)5COVID-19 Vaccine ( - 2024- season)2025 HIB VaccinesAged OutNo longer eligible based on patient's age to complete this topicHPV VaccinesAged OutNo longer eligible based on patient's age to complete this topicHepatitis A VaccinesAged OutNo longer eligible based on patient's age to complete this topicHepatitis B VaccinesAged OutNo longer eligible based on patient's age to complete this topicIPV VaccinesAged OutNo longer eligible based on patient's age to complete this topicMeningococcal VaccineAged OutNo longer eligible based on patient's age to complete this topicRotavirus VaccinesAged Out No longer eligible based on patient's age to complete this topic
--- OUTSIDE RECORDS SUMMARY | 2025-05-30 07:32 | XMS_ITS ---
Author Organization [facility] Address [address] [place] [address] Care Team Providers Care Maintenance Instructor Name Role Phone Jose Danielson MD Primary Care Provider [phone] Active Problems ProblemNoted DateDiagnosed DateCoronary artery jrmhrul8012/24/2024ardiovascular stress test yywevddg97/30/2025Shortness of kerags455Acute renal failure 05/21/20248553Aafzvkehsnceor18/25/2024ilateral ureteral ilnjsefcutl86/25/2024PH associated with /25/2024hronic obstructive pulmonary disease (COPD) 05/21/20244340Nauujxpl28/25/2024Erectile pjxbrajlbjc84/25/2024H/O: hypothyroidism 05/21/20241505Flxrpemkf55/25/2024High prostate specific antigen (PSA)05/21/2024 Hydronephrosis with ureteral wmiaalrd86/25/1758Lyznqzyvmnri67/25/2024 Hyperplastic colon polyp05/21/2024Kidney stone05/21/2024Left renal atrophy 05/21/2024Lung illuqm8405/21/2024Metabolic twhwywfw34/25/2024Myocardial infarct 05/21/2024Occult blood in raqvip7507/21/2023ostprandial xkxaoboc82/25/2024 Prostate mokozr4005/21/2024rostatic yksxzqkuwbx57/25/2024heumatoid arthritis 4Right distal ureteral bzgjibpy04/25/2024Secondary hyperparathyroidism 05/21/2024KD (chronic kidney disease) stage 3, GFR 30-59 ml/min05/21/2024lot retention of urine11/25/2024Carpal tunnel kkyqhzjl99/4Pre- operative cardiovascular kynhjfitwnf93/24/2023 Assessment & Plan (11/17/2022 3:18 PM EDT): RCRI- 2??points Class III Risk 10.1??% 30-day risk of , [place], or cardiac arrest EKG at last visit [...] any major fluid shifts. Thank You Coronary eiuyuwipdvsajtr57/02/2013 Assessment & Plan (11/17/2022 3:14 PM EDT): [...] shortness of breath or further concerns. Essential voffhozzikvi65/02/2013 Assessment & Plan (11/17/2022 3:15 PM EDT): Hypertension is well controlled today 126/60 with increased norvasc and imdur doses Continue norvasc, lisinopril, imdur, Renal function being monitored by nephrology Benign prostatic zixehxnrntr15/20/2013Chest pain05/16/2013 Assessment & Plan (10/14/2022 5:20 PM EDT): Increase imdur to 120 mg and start ranexa as per Dr Huynh's recommendations Quktpbtqkkzqjs57/20/2013 Assessment & Plan (11/17/2022 2:06 PM EDT): Continue statin- lipid level well controlled Assessment & Plan (10/14/2022 5:20 PM EDT): Continue statin Preinfarction qfmozsgk60/20/2013Type 2 diabetes mellitus without complication 05/16/2013 Current Treatment and Therapy Plans No current plan information found. Past Treatment and Therapy Plans No past plan information found. Lifetime Dose Tracking * ChemicalLifetime DoseAutomatic EntryManual EntryFluoro Time4.5 minutes0 minutes4.5 minutesAir Obcul745 mGy0 oPh639 mGyDose Area Hfjgwkg13,681 mGy-cm20 mGy-cm236,681 mGy-cm2
--- OUTSIDE RECORDS SUMMARY | 2025-05-30 07:33 | XMS_ITS | Clinical Summary ---
Author Organization [facility] Address [address] [place] [address] Care Team Providers Care Senior Lead Project Manager Name Role Phone Jose Danielson MD Primary Care Provider [phone] Allergies Active AllergyReactionsCriticalityNoted DateCommentsCiprofloxacinItching 3389OymyfyyiqbvFiclf60/19/2014 Medications MedicationSigDispense QuantityRefillsLast FilledStart DateEnd DateStatus aspirin 81 mg EC tablet in the morning.Active tiotropium (Spiriva Respimat) 2.5 mcg/actuation inhaler Spiriva Respimat 2.5 mcg/actuation solution for inhalationActive albuterol 90 mcg/actuation inhaler Ventolin HFA 90 mcg/actuation aerosol inhaler inhale 2 puffs by mouth and INTO THE LUNGS every 4 hours if needed for shortness of breathActive glimepiride (Amaryl) 4 mg tablet Take 2 mg by mouth 2 times daily.Active levothyroxine (Synthroid, Levoxyl) 50 mcg tablet levothyroxine 50 mcg tablet take 1 tablet by mouth once dailyActive liothyronine (Cytomel) 5 mcg tablet Take 5 mcg by mouth in the morning.09/25/2022ctive SITagliptin phosphate (Januvia) 100 mg tablet Januvia 100 mg tabletActive pioglitazone (Actos) 15 mg tablet Take 15 mg by mouth in the morning.12/24/2022ctive magnesium oxide (Mag-Ox) 400 mg tablet 400 mg in the morning.Active cholecalciferol (Vitamin D-3) 125 MCG (5000 UT) capsule 1 capsule.Active atorvastatin (Lipitor) 80 mg tablet Indications:Coronary artery disease due to lipid rich plaqueTAKE 1 TABLET BY MOUTH AT BEDTIME 90 tablet 5Active lisinopril 20 mg tablet Indications:Essential hypertensionTAKE 1 TABLET BY MOUTH DAILY 90 tablet 5Active isosorbide mononitrate ER (Imdur) 60 mg 24 hr tablet Indications:Coronary artery disease involving yomba shoshone coronary artery of yomba shoshone heart with other form of angina pectorisTake 2 tablets (120 mg) by mouth once daily as directed. Do not crush or chew. 180 tablet 5Active amLODIPine (Norvasc) 2.5 mg tablet Take 2.5 mg by mouth in the morning.5Active ranolazine (Ranexa) 1,000 mg 12 hr tablet Indications:Coronary artery disease involving yomba shoshone coronary artery of yomba shoshone heart with other form of angina pectorisTake 1 tablet (1,000 mg) by mouth two times daily. Do not crush, chew, or split. 180 tablet ctive furosemide (Lasix) 20 mg tablet Indications:Chronic diastolic congestive heart failure (CMS/HCC)Take 1 tablet (20 mg) by mouth in the morning. 90 tablet 6Active nitroglycerin (Nitrostat) 0.4 mg SL tablet Indications:Coronary artery disease involving yomba shoshone coronary artery of yomba shoshone heart without angina pectorisDISSOLVE 1 TABLET UNDER THE TONGUE EVERY 5 MINUTES NEEDED FOR CHEST PAIN. MAX OF 3 TABLETS IN 15MINUTES. CALL 911 IF PAIN PERSISTS. 100 tablet tive metoprolol tartrate (Lopressor) 50 mg tablet Indications:Essential hypertensionTAKE 1 TABLET BY MOUTH TWICE DAILY 180 tablet tive Active Problems ProblemNoted DateDiagnosed DateCoronary artery joidicg3612/24/2024ardiovascular stress test yadlkarf48/30/2025Shortness of xgabqr3012/24/2024ute renal failure 05/21/20244671Oulzrqpfvdhwlt10/25/2024ilateral ureteral dqtzzldamqj78/25/2024PH associated with fonxdzrl24/25/2024hronic obstructive pulmonary disease (COPD) 05/21/20248122Ciytwmyb85/25/2024Erectile rpzqtyxcfyz01/25/2024H/O: hypothyroidism 05/21/20243459Doswnghvz06/25/2024High prostate specific antigen (PSA)05/21/2024 Hydronephrosis with ureteral uoglmfkx29/25/1308Xlnruefpowjb78/25/2024 Hyperplastic colon polyp05/21/2024Kidney stone05/21/2024Left renal atrophy 05/21/2024Lung usahgv3605/21/2024Metabolic zyjficec56/25/2024Myocardial infarct 05/21/2024Occult blood in kufnar3907/21/2023ostprandial cwjurxtb77/25/2024 Prostate hzjlds9405/21/2024rostatic odjuuynmtci99/25/2024heumatoid arthritis 05/21/2024ight distal ureteral ylhcxncn86/25/2024Secondary hyperparathyroidism 05/21/2024KD (chronic kidney disease) stage 3, GFR 30-59 ml/min05/21/2024lot retention of urine05/21/2024arpal tunnel ogmionbq11/re- operative cardiovascular ycypudwobio84/24/2023 Assessment & Plan (11/17/2022 3:18 PM EDT): RCRI- 2??points Class III Risk 10.1??% 30-day risk of , [place], or cardiac arrest EKG at last visit [...] any major fluid shifts. Thank You Coronary xiradnuhsrgyzad61/02/2013 Assessment & Plan (11/17/2022 3:14 PM EDT): [...] shortness of breath or further concerns. Essential byxwunuwfvql63/02/2013 Assessment & Plan (11/17/2022 3:15 PM EDT): Hypertension is well controlled today 126/60 with increased norvasc and imdur doses Continue norvasc, lisinopril, imdur, Renal function being monitored by nephrology Benign prostatic gxsdygagrle01/20/2013Chest pain05/16/2013 Assessment & Plan (10/14/2022 5:20 PM EDT): Increase imdur to 120 mg and start ranexa as per Dr Huynh's recommendations Igyrhgtiqevksa21/20/2013 Assessment & Plan (11/17/2022 2:06 PM EDT): Continue statin- lipid level well controlled Assessment & Plan (10/14/2022 5:20 PM EDT): Continue statin Preinfarction kobkbfzq03/20/2013Type 2 diabetes mellitus without complication 05/16/2013 Encounters DateTypeDepartmentCare MllvJmetwckwoxj97/25/2025Ref[facility] [address] [place] [address] Rd, [address] [place] [address] Gato Huynh MD Coronary artery disease involving yomba shoshone coronary artery of yomba shoshone heart without angina pectoris; Essential hypertensionfrom Last 3 Months Family History Medical HistoryRelationNameCommentsNo Known ProblemsFatherNo Known Problems MotherRelationNameStatusCommentsFatherDeceasedMotherDeceased Social History Tobacco UseTypesPacks/DayYears UsedDateSmoking Tobacco: NeverSmokeless Tobacco: Never Tobacco Cessation:Counseling Given: Not Answered Alcohol UseStandard Drinks/WeekCommentsYes0 (1 standard drink = 0.6 oz pure alcohol)sociallyUT Safety & EnvironmentAnswerDate RecordedFear of Current or Ex-PartnerNot on file08/18/2023Emotionally AbusedNot on file08/18/2023hysically AbusedNot on file08/18/2023Sexually AbusedNot on file4Physically or Sexually AbusedNot on file08/18/2023CommentsUnknownSex and Gender InformationValueDate RecordedSex Assigned at UodrnUhojqc13/30/2025 4:34 PM EDT Legal ThjHwov4112/23/2021 11:09 PM EDTGender QnmwaexlHainit81/30/2025 4:34 PM EDT Sexual OrientationHeterosexual or Rljvmyzf20/30/2025 4:34 PM EDT Last Filed Vital Signs Vital SignReadingTime TakenCommentsBlood Pikndlsz242/68001/28/2025 12:14 PM EDT Trsfw3113/04/2025 12:14 PM EDTTemperature--Respiratory Vxeq212812/27/2024 2:15 PM EDTOxygen Afbzvngwrj56%01/28/2025 12:14 PM EDTInhaled Oxygen Concentration-- Ztmbon991 kg (279 lb)01/28/2025 12:14 PM ELOMpkxcc018.3 cm (5' 9 )01/28/2025 12:14 PM EDTBody Mass Index41. 12:14 PM EDT Plan of Treatment DateTypeDepartmentCare Team (Latest Contact Info)Mgogaflzzdl13/05/2025 9:15 AM ESTOffice Visit [facility] [place] [address] [place] [address] Gato Huynh MD [address] [facility] [place] [address] Health MaintenanceDue DateLast DoneCommentsDiabetes: Hemoglobin A1C1942 Medicare Annual Wellness (AWV)3Diabetes: Retinopathy Screening 3Depression Fxuhooowf23/04/1955Diabetes: Urine Protein Screening 1961Fall Risk Jlrlidhin72/04/2008COVID-19 Vaccine ( season) , 03/06/2024, 03/24/2023, Additional history existsAdult Aomxywc61/06/969862/11/2022Zoster DuinkrgnRcsmgaskd24/11/2020, 12/06/2019 Pneumococcal Vaccine: 50+ ShyklBlovvqcot51/06/2023, 04/05/2017Influenza Vaccine Sccxdpeei25/29/2025, 03/06/2024, 03/30/2021, Additional history existsHIB VaccinesAged OutNo longer eligible based on patient's age to complete this topic HPV VaccinesAged OutNo longer eligible based on patient's age to complete this topicIPV VaccinesAged OutNo longer eligible based on patient's age to complete this topicMeningococcal B VaccineAged OutNo longer eligible based on patient's age to complete this topicMeningococcal VaccineAged OutNo longer eligible based on patient's age to complete this topicRotavirus VaccinesAged OutNo longer eligible based on patient's age to complete this topic Insurance Care Teams Team MemberRelationshipSpecialtyStart DateEnd Jose Danielson MD [address] [facility] [address] [address] PCP - [facility]10/14/22
[2025-05-30 08:00] LABS: Hematocrit 41.9 % (42.0-54.0); Hemoglobin 13.9 g/dL (14.0-18.0); Mean Corpuscular HGB Conc 33.2 g/dL (29.9-35.2); Mean Corpuscular Hemoglobin 34.6 pg (25.9-34.0); Mean Corpuscular Volume 104.2 fL (80.0-94.0); Platelet Count 161 10^3/uL (150-450); Red Blood Count 4.02 10^6/uL (4.70-6.10); White Blood Count 5.3 10^3/uL (4.0-11.0)
[2025-05-30 08:03] LABS: Protein Creatinine Ratio Urine 0.20; Total Protein Urine Random 24.3 mg/dL (<=11.9)
[2025-05-30 08:16] LABS: Glucose Urine UA NEGATIVE (NEGATIVE)
[2025-05-30 08:29] LABS: Cast Seen? NONE SEEN #/LPF (NONE SEEN); Crystals Seen? None Seen #/HPF (None Seen)
[2025-05-30 08:39] LABS: Albumin Level 3.6 g/dL (3.4-5.0); Anion Gap 16.2; Blood Urea Nitrogen 29.0 mg/dL (7.0-18.0); Calcium 8.9 mg/dL (8.5-10.1); Carbon Dioxide 24.4 mmol/L (21.0-32.0); Chloride 106 mmol/L (98-107); Estimated GFR (African America 38 (>=60 mL/min/1.73m^2); Estimated GFR (Non-African Ame 31 (>=60 mL/min/1.73m^2); Glucose 168 mg/dL (74-106); Magnesium 1.6 mg/dL (1.8-2.4); Potassium 4.6 mmol/L (3.5-5.1); Sodium 142 mmol/L (136-145); Uric Acid 8.2 mg/dL (3.5-7.2)
[2025-05-30 09:05] LABS: Iron 125.0 ug/dL (65.0-175.0); Percent Iron Saturation 48.3 %; Total Iron Binding Capacity 259.0 ug/dL (250.0-450.0)
[2025-05-30 09:50] LABS: Ferritin 160.0 ng/mL (26.0-388.0)
== END 2025-05-30 07:27 | disposition home or self-care (01) ==
LOC: LAB 07:29
PROVIDERS: PCP Family Medicine; Visit Provider Internal Medicine
DX: E79.0 Hyperuricemia without signs of inflammatory arthritis and tophaceous disease (principal); E78.5 Hyperlipidemia, unspecified; N18.30 Chronic kidney disease, stage 3 unspecified; I12.9 Hypertensive chronic kidney disease with stage 1 through stage 4 chronic kidney disease, or unspecified chronic kidney disease
CPT/HCPCS: 36415; 80069; 81001; 82306; 82570; 82728; 83540; 83550; 83735; 83970; 84156; 84550; 85027

== ENCOUNTER 2025-05-30 09:51 | Outpatient (OUT) | payer MEDICARE, SELFPAY ==
--- NOTE | 2025-05-30 09:54 | US_ITS ---
The [address] [address] Patient Name: GLADYS SMYTH MRN: [id number] date: 1940 Sex: M Assigned Patient Location: US Current Patient Location: US Accession/Order Number: [id number] Exam Date: 05/30/2025 09:59 Report Date: 05/30/2025 11:05 At the request of: NI GONZALEZ MD Procedure: US renal BI BILATERAL RENAL AND BLADDER ULTRASOUND CLINICAL HISTORY: Follow-up kidney stones COMPARISON: 12/25/2024 Estimation of renal size is approximately 12.5 cm on the right and 10.4 cm on the left. There is cortical thinning on the left. Three echogenic foci with twinkle artifact are again seen at the right kidney suggesting potential stones. These measure up to 4 - 5 mm in size. A small exophytic cyst is visualized at the superior pole the right kidney measuring 2.2 x 2.1 x 1.9 cm. A tiny cortical cyst is also visualized on the left measuring 12 mm. No hydronephrosis is seen. There is no perinephric fluid. The urinary bladder is partially distended with a volume of 228 abdominal. No contour or intraluminal abnormalities are seen. US/US renal BI IMPRESSION: LEFT RENAL CORTICAL ATROPHY. RENAL CYSTS. CONTINUED SUSPECTED RIGHT NEPHROLITHIASIS. NO OBSTRUCTIVE UROPATHY. Impression dictated by: Anna Hui M.D. 05/30/2025 11:05 AM Dictation Location: [place] [address] Electronically authenticated by: [id number] Y Date: 05/30/2025 11:05
--- OUTSIDE RECORDS SUMMARY | 2025-05-30 09:54 | XMS_ITS | Clinical Summary ---
Author Organization [facility] Address [address] [place] [address] Phone Care Team Providers Care Engineer Assistant Name Role Phone Unavailable Primary Care Provider Unavailabl e Social History Tobacco UseTypesPacks/DayYears UsedDateSmoking Tobacco: Never AssessedSex and Gender InformationValueDate RecordedSex Assigned at BirthNot on fileLegal Sex Male05/22/2022 7:44 AM ESTGender IdentityNot on fileSexual OrientationNot on file Plan of Treatment Health MaintenanceDue DateLast DoneCommentsLipid Panel1940Yearly Adult Kyrubhcx25/04/1941DTaP/Tdap/Td Vaccines (1 - Tdap)1964Pneumococcal Vaccine (1 of [...]
--- OUTSIDE RECORDS SUMMARY | 2025-05-30 09:54 | XMS_ITS ---
Author Organization [facility] Address [address] [place] [address] Care Team Providers Care Geospatial Technician Name Role Phone Jose Danielson MD Primary Care Provider [phone] Active Problems ProblemNoted DateDiagnosed DateCoronary artery tmsacup2712/24/2024ardiovascular stress test vcczpzbe93/30/2025Shortness of wzqcrc555Acute renal failure 05/21/20246984Xgdvikfpvsihxk67/25/2024ilateral ureteral xwrctvnnequ78/25/2024PH associated with /25/2024hronic obstructive pulmonary disease (COPD) 05/21/20245594Xvhenedc68/25/2024Erectile ebmuwxwgigt46/25/2024H/O: hypothyroidism 05/21/20248769Ujlqjyjzu85/25/2024High prostate specific antigen (PSA)05/21/2024 Hydronephrosis with ureteral bavreyag71/25/7675Udadhfericyh39/25/2024 Hyperplastic colon polyp05/21/2024Kidney stone05/21/2024Left renal atrophy 05/21/2024Lung hlfjwp4005/21/2024Metabolic /25/2024Myocardial infarct 05/21/2024Occult blood in rcbtgh9507/21/2023ostprandial uzyepdfx59/25/2024 Prostate wdeykv9905/21/2024rostatic /25/2024heumatoid arthritis 4Right distal ureteral jauxdjbq26/25/2024Secondary hyperparathyroidism 05/21/2024KD (chronic kidney disease) stage 3, GFR 30-59 ml/min05/21/2024lot retention of urine11/25/2024Carpal tunnel wkodiexm13/4Pre- operative cardiovascular gwhypwrqtge26/24/2023 Assessment & Plan (11/17/2022 3:18 PM EDT): RCRI- 2??points Class III Risk 10.1??% 30-day risk of , [place], or cardiac arrest EKG at last visit [...] any major fluid shifts. Thank You Coronary utpqgenrgerwcyv24/02/2013 Assessment & Plan (11/17/2022 3:14 PM EDT): [...] shortness of breath or further concerns. Essential qtlmnzxxoudf34/02/2013 Assessment & Plan (11/17/2022 3:15 PM EDT): Hypertension is well controlled today 126/60 with increased norvasc and imdur doses Continue norvasc, lisinopril, imdur, Renal function being monitored by nephrology Benign prostatic kejjktmmpxo81/20/2013Chest pain05/16/2013 Assessment & Plan (10/14/2022 5:20 PM EDT): Increase imdur to 120 mg and start ranexa as per Dr Huynh's recommendations Qntvlrckhumhzd77/20/2013 Assessment & Plan (11/17/2022 2:06 PM EDT): Continue statin- lipid level well controlled Assessment & Plan (10/14/2022 5:20 PM EDT): Continue statin Preinfarction ybmlnnxn30/20/2013Type 2 diabetes mellitus without complication 05/16/2013 Current Treatment and Therapy Plans No current plan information found. Past Treatment and Therapy Plans No past plan information found. Lifetime Dose Tracking * ChemicalLifetime DoseAutomatic EntryManual EntryFluoro Time4.5 minutes0 minutes4.5 minutesAir Buqjz848 mGy0 lTk240 mGyDose Area Nrcmnpu68,681 mGy-cm20 mGy-cm236,681 mGy-cm2
--- OUTSIDE RECORDS SUMMARY | 2025-05-30 09:55 | XMS_ITS | Clinical Summary ---
Author Organization [facility] Address [address] [place] [address] Care Team Providers Care All Round Logger Name Role Phone Jose Danielson MD Primary Care Provider [phone] Allergies Active AllergyReactionsCriticalityNoted DateCommentsCiprofloxacinItching 3266GqkoffrxsagOoyfy79/19/2014 Medications MedicationSigDispense QuantityRefillsLast FilledStart DateEnd DateStatus aspirin [...] 24 hr tablet Indications:Coronary artery disease involving habematolel coronary artery of habematolel heart with other form of angina pectorisTake 2 tablets (120 mg) by mouth once daily as directed. Do not crush or chew. 180 tablet 5Active amLODIPine (Norvasc) 2.5 mg tablet Take 2.5 mg by mouth in the morning.5Active ranolazine (Ranexa) 1,000 mg 12 hr tablet Indications:Coronary artery disease involving habematolel coronary artery of habematolel heart with other form of angina pectorisTake 1 tablet (1,000 mg) by mouth two times daily. Do not crush, chew, or split. 180 tablet ctive furosemide (Lasix) 20 mg tablet Indications:Chronic diastolic congestive heart failure (CMS/HCC)Take 1 tablet (20 mg) by mouth in the morning. 90 tablet 6Active nitroglycerin (Nitrostat) 0.4 mg SL tablet Indications:Coronary artery disease involving habematolel coronary artery of habematolel heart without angina pectorisDISSOLVE 1 TABLET UNDER THE TONGUE EVERY 5 MINUTES NEEDED FOR CHEST PAIN. MAX OF 3 TABLETS IN 15MINUTES. CALL 911 IF PAIN PERSISTS. 100 tablet tive metoprolol tartrate (Lopressor) 50 mg tablet Indications:Essential hypertensionTAKE 1 TABLET BY MOUTH TWICE DAILY 180 tablet tive Active Problems ProblemNoted DateDiagnosed DateCoronary artery xuzuquj5212/24/2024ardiovascular stress test xsaincid61/30/2025Shortness of shblaj8012/24/2024ute renal failure 05/21/20243960Srzzfzlkiimikj79/25/2024ilateral ureteral eyyawwwjemw70/25/2024PH associated with jqtfyubx20/25/2024hronic obstructive pulmonary disease (COPD) 05/21/20241518Vkdqxyaq01/25/2024Erectile bhaxruvaxwg61/25/2024H/O: hypothyroidism 05/21/20249117Jemcabcaq62/25/2024High prostate specific antigen (PSA)05/21/2024 Hydronephrosis with ureteral ymtfcnur46/25/5907Fcbhnazlfdnf05/25/2024 Hyperplastic colon polyp05/21/2024Kidney stone05/21/2024Left renal atrophy 05/21/2024Lung qdseyq6005/21/2024Metabolic ufnwtria02/25/2024Myocardial infarct 05/21/2024Occult blood in kwibjr0407/21/2023ostprandial /25/2024 Prostate yufeqd5205/21/2024rostatic bjijqmlgdmd55/25/2024heumatoid arthritis 05/21/2024ight distal ureteral blvtqtue12/25/2024Secondary hyperparathyroidism 05/21/2024KD (chronic kidney disease) stage 3, GFR 30-59 ml/min05/21/2024lot retention of urine05/21/2024arpal tunnel mvowmqpf14/re- operative cardiovascular lrnfdtydexc76/24/2023 Assessment & Plan (11/17/2022 3:18 PM EDT): RCRI- 2??points Class III Risk 10.1??% 30-day risk of , [place], or cardiac [...] any major fluid shifts. Thank You Coronary tmmsozrcbgnjyws71/02/2013 Assessment & Plan (11/17/2022 3:14 PM EDT): [...] shortness of breath or further concerns. Essential glccrotfrvkm07/02/2013 Assessment & Plan (11/17/2022 3:15 PM EDT): Hypertension is well controlled today 126/60 with increased norvasc and imdur doses Continue norvasc, lisinopril, imdur, Renal function being monitored by nephrology Benign prostatic qgdeikzcjpo89/20/2013Chest pain05/16/2013 Assessment & Plan (10/14/2022 5:20 PM EDT): Increase imdur to 120 mg and start ranexa as per Dr Huynh's recommendations Xyvcxdahtngdnw12/20/2013 Assessment & Plan (11/17/2022 2:06 PM EDT): Continue statin- lipid level well controlled Assessment & Plan (10/14/2022 5:20 PM EDT): Continue statin Preinfarction jagknnzy42/20/2013Type 2 diabetes mellitus without complication 05/16/2013 Encounters DateTypeDepartmentCare HjorVlroptordgq79/25/2025Ref[facility] [address] [place] [address] Rd, [address] [place] [address] Gato Huynh MD Coronary artery disease involving habematolel coronary artery of habematolel heart without angina pectoris; Essential hypertensionfrom Last [...] file08/18/2023CommentsUnknownSex and Gender InformationValueDate RecordedSex Assigned at WfakbMfpebo37/30/2025 4:34 PM EDT Legal UxyTjhs7312/23/2021 11:09 PM EDTGender SefwmqklNdldsa84/30/2025 4:34 PM EDT Sexual OrientationHeterosexual or Xjjsbwyw31/30/2025 4:34 PM EDT Last Filed Vital Signs Vital SignReadingTime TakenCommentsBlood Iuszfovk746/68001/28/2025 12:14 PM EDT Xqcqj0247/04/2025 12:14 PM EDTTemperature--Respiratory Ztbb825112/27/2024 2:15 PM EDTOxygen Khfbejgnsy65%01/28/2025 12:14 PM EDTInhaled Oxygen Concentration-- Cfkhnf897 kg (279 lb)01/28/2025 12:14 PM NMOPddwrx256.3 cm (5' 9 )01/28/2025 12:14 PM EDTBody Mass Index41. 12:14 PM EDT Plan of Treatment DateTypeDepartmentCare Team (Latest Contact Info)Dwyrxiisazk32/05/2025 9:15 AM ESTOffice Visit [facility] [place] [address] [place] [address] Gato Huynh MD [address] [facility] [place] [address] Health MaintenanceDue DateLast DoneCommentsDiabetes: Hemoglobin A1C1940 Medicare Annual Wellness (AWV)3Diabetes: Retinopathy Screening 3Depression Gohnyfyll08/04/1955Diabetes: Urine Protein Screening 1961Fall Risk Kjerveghu06/04/2008COVID-19 Vaccine ( season) , 03/06/2024, 03/24/2023, Additional history existsAdult Moycrmh38/06/951830/11/2022Zoster RnqthrjqWuggyqdcm25/11/2020, 12/06/2019 Pneumococcal Vaccine: 50+ HskffVlgkdqxso32/06/2023, 04/05/2017Influenza Vaccine Galhwpxfw28/29/2025, 03/06/2024, 03/30/2021, Additional history existsHIB VaccinesAged OutNo [...] MemberRelationshipSpecialtyStart DateEnd Jose Danielson MD [address] [facility] [address] [address] PCP - [facility]10/14/22
--- OUTSIDE RECORDS SUMMARY | 2025-05-30 09:55 | XMS_ITS | Clinical Summary ---
Author Organization [facility] Address [address] [place] [address] Care Team Providers Care Emergency Preparedness Manager Name Role Phone Jose Danielson MD Primary Care Provider [phone] Allergies Active AllergyReactionsCriticalityNoted DateCommentsCiprofloxacinItching,Other 10/14/2022enicillinsHives,Rash,Unknown,ZlmpiBfl53/19/2014 Medications MedicationSigDispense QuantityRefillsLast FilledStart DateEnd DateStatus aspirin [...] topicallyActive Active Problems ProblemNoted DateDiagnosed DateCarpal tunnel dlrpsmyi34/18/2024re-operative cardiovascular uuvyusjajbq81/24/2023 Overview (09/12/2023): Last Assessment & Plan: RCRI- [...] any major fluid shifts. Thank You Coronary lboueagxbnfglhj12/02/2013 Overview (09/12/2023): Last Assessment & Plan: Coronary artery disease is stable, angina much improved s/p increased imdur dose and adding ranexa. Continue GDMT Essential guytmnwtohfr19/02/2013 Overview (09/12/2023): Last Assessment & Plan: Hypertension is well controlled today 126/60 with increased norvasc and imdur doses Continue norvasc, lisinopril, imdur, Renal function being monitored by nephrology Benign prostatic ncayfdjnjzg60/20/2013Chest pain05/16/2013 Overview (09/12/2023): Last Assessment & Plan: Increase imdur to 120 mg and start ranexa as per Dr Huynh's recommendations Dqgobqrymcaljt31/20/2013 Overview (09/12/2023): Last Assessment & Plan: Continue statin- lipid level well controlled Preinfarction ytsflqyr44/20/2013Type 2 diabetes mellitus without complications 05/16/2013 Immunizations ImmunizationAdministration DatesNext DueInfluenza, High Dose Seasonal, Preservative Free04/05/2017Influenza, Dxbxjzwocdz92/17/2016Influenza, trivalent, ffhczjoutw63/04/2021,04/18/2020Pneumococcal Conjugate PCV 131 Pneumococcal Conjugate PCV Tdap107/02/2022Zoster, Recombinant 02/05/2020,12/06/2019 Social History Tobacco UseTypesPacks/DayYears UsedDateSmoking Tobacco: UnknownAlcohol Use Standard Drinks/WeekCommentsDefer0 (1 standard drink = 0.6 oz pure alcohol)Sex and Gender InformationValueDate RecordedSex Assigned at BirthNot on fileLegal WcxCqjq7909/08/2022 7:26 PM EDTGender IdentityNot on fileSexual OrientationNot on file Last Filed Vital Signs Vital SignReadingTime TakenCommentsBlood Iezldzun829/62009/12/2023 10:23 AM EDT Cbmff810809/12/2023 10:23 AM BCHIduzynhcqjn22.4 ??C (97.5 ??F)09/12/2023 10:23 AM EDTRespiratory Qvcg749509/12/2023 10:23 AM EDTOxygen Saturation--Inhaled Oxygen Concentration--Clerwp799 kg (244 lb 6.4 oz)09/12/2023 10:23 AM MSQCriszu713.8 cm (5' 10 )07/20/2018 12:00 PM ESTBody Mass Index35.0707/20/2018 12:00 PM EST Plan of Treatment Not on file Insurance Care Teams Team MemberRelationshipSpecialtyStart Date Jose Danielson MD PCP - GeneralFamily Medicine09/12/23
--- OUTSIDE RECORDS SUMMARY | 2025-05-30 09:58 | XMS_ITS | CCD ---
Author Organization [facility] Care Team Providers Care Leather Whitener Name Role Phone Jose Alfaro Primary Care [...] Provider MD Skinny Kiser Other Provider [facility] Jen Desir Other Provider MD Aaliyah Mitchell Other Provider MD Alicia León Other Provider MD Milton Braun Other Provider MD Ni Olivares Other Provider MD Yogesh Omalley Other Provider MD Kiran Eldridge Jr Other Provider [phone] MD Fátima Ivey Other Provider MD Jennifer [...] Unavailable HOY ., DR FELIZ Admitting Unavailable [place], DR TYLER [employer] Unavailable BERNA, IRIS [...] Unavailable MD Jose Alfaro Primary Care Provider [phone] MD Ni Olivares Attending Provider MD Jose Alfaro Primary Care Provider [phone] NON STAFF Attending Provider Unavailable JENNIFER DRISCOLL [...] Unavailable Jose Alfaro MD Primary Care Provider [phone] Allergies Allergy ClassificationReported Allergen(s)Allergy TypeDate of OnsetReaction(s) Facility (20 sources)Ciprofloxacin; Translations: [ciprofloxacin]Drug Qpzbfio83-52-2651 Eruption of skin (disorder), Itching, OtherExec[facility] (16 sources)Penicillin; Translations: [penicillin]Drug AllergyEruption of skin (disorder)[facility] [employer] Other (6 sources)CiprofloxacinDrug AllergyUnknowEastern State Hospital [facility] Other (12 sources)Penicillins; Translations: [Penicillins]Allergy to substance 36-75-3250Raagh, Rash, Unknown, Other[facility] (1 source)CiprofloxacinDrug Vbsnecz86-17-9783[facility] (3 sources)levothyroxine; Translations: [levothyroxine]Drug AllergySwelling of oral cavity structure (finding)[facility] (6 sources)liothyronine; Translations: [liothyronine]Drug AllergySwelling of oral cavity structure (finding)[facility] (1 source)CiprofloxacinDrug Xbkgudq81-25-7935QbdevpxnbSelect [facility] (1 source)No Known Medication Allergies; Translations: [No Known Medication Allergies]Propensity to adverse reactions (disorder)[facility] Rep[facility] Medications Current Medications MedicationDrug Class(es)DatesSig (Normalized)Sig (Original)acetaminophen 325 mg / HYDROcodone bitartrate 5 mg oral tablet (1 source)Opioid AgonistStart: 10-07-2022 End: 74-50-1493yuqfwbdxjmcmz-hydrocodone 325 mg-5 mg oral tablet 1 tab(s), Oral, q4hr Pain for 2 day(s), 7 tab(s),Refill(s) 0, [id number], 175, cm, 09/15/22 5:20:00 EDT, Height/Length Dosing, 114, kg, 09/15/22 5:20:00 EDT, Weight Dosing Start Date: 10/07/22 Stop Date: 10/09/22 Status: [id number] 200 actuat albuterol 0.09 mg/actuat metered dose inhaler (19 sources)beta2-Adrenergic AgonistStart: 12-20-2023 End: 39-80-4018adba 1 puff(s) by inhalation every four hours as neededAlbuterol Sulfate (Ventolin Hfa) 90 mcg/actuation HFA aerosol inhaler Active 2 PUFF INHALATION Every 4 hours as needed June 05, 2024 4:35pmStart: 02-23-2021 take 2 puff(s) by inhalation every four hoursVentolin Diskus 2 puff(s), Inhalation, q4hr Shortness of breath or wheezing, Refill(s) 0, COPD Start Date: 02/23/21 Status: Ordered Repeat number: 1Start: 34-17-2315pjfr 2 puff(s) by inhalation every four hoursVentolin Diskus 2 puff(s), Inhalation, q4hr Shortness of breath or wheezing, Refill(s) 0, COPD Start Date: 02/23/21 Status: Ordered Start: 29-17-8757Vgzybvcf Diskus See Instructions, Refill(s) 0, Shortness of breath or wheezing Start Date: 02/23/21 Status: OrderedStart: 27-59-5736Zotjpume Diskus Refill(s) 0 Start Date: 02/23/21 Status: [...] sources)Platelet Aggregation Inhibitor, Nonsteroidal Anti-inflammatory Drug Start: 43-24-7551riwl 81 mg by mouth once dailyaspirin 81 [...] 0.125 mg oral capsule (17 sources)Vitamin DStart: 96-53-8592utoe 1 capsule by mouth once daily Cholecalciferol (Vitamin D3) 125 mcg (5,000 unit) capsule Active 5000 UNIT PO Daily December 192:00amStart: 06-15-2019 End: 21-81-1141qyrv 1 tablet by mouth once dailyCholecalciferol (Vitamin D3) 5,000 unit Tablet,Disintegrating Discontinued 5000 UNIT PO Daily June 15, 2019 1:00am December 20, 2023 11:59amStart: 22-70-3665dgvf 1 tablet by mouth once dailycholecalciferol 2000 intl units oral tablet (Vitamin D3) 2,000 International_Unit = 1 tab(s), Oral,Daily Start Date: 04/10/19 Status: Ordered Start: 48-18-2034kome 1 tablet by mouth once dailycholecalciferol 2000 [...] release oral tablet (3 sources)Nonsteroidal Anti-inflammatory DrugStart: 48-47-1982wjvs 1 tablet by mouth twice dailydiclofenac sodium 75 mg Oral EC Tab 75 mg = 1 tab(s), Oral, BID, Refills(s) 0, Arthritis Start Date: 09/14/22 Status: Orderedtake 1 tablet by mouth every twelve hoursDiclofenac Sodium 75 MG 1 tablet as needed Orally Twice a day Activedoxycycline hyclate 100 mg oral capsule (8 sources)Tetracycline-class DrugStart: 16-75-4839xtsxejbymkz hyclate 100 mg Cap See Instructions, Take 1 cap the day before your procedure and 1 capthe day of your procedure - afterwards, # 2 cap(s), Refills(s) 0, Pharmacy: [facility] #[id number], 177, cm, 11/18/22 13:54:00 EDT, Height/Length Dosing, 114.7, kg, 11/18/22 13:54:00 EDT, W... Start Date: 12/07/22 Status: OrderedStart: 07-05-2019 End: 06-97-8566bdks 1 tablet by mouth twice dailyDoxycycline Hyclate 100 mg tablet Discontinued 100 MG PO Twice daily 14 July 05, 2019 1:00am August 15, 2022 2:41pmglimepiride 2 mg oral tablet (20 sources)SulfonylureaStart: 50-16-4055qksa 1 tablet by mouth twice daily at breakfastGlimepiride 2 mg tablet Active 2 MG PO Twice daily June 05, 2024 4:32pm administer with breakfastStart: 08-11-2023 End: 04-79-0365bddr 1 tablet by mouth once daily at breakfastGlimepiride 2 mg tablet Discontinued 2 MG PO Every morning December 20, 2023 12:00am June 05, 2024 4:36pm administer with breakfastStart: 87-23-8938nlaw 1 tablet by mouth twice dailyglimepiride 4 mg Tab 4 mg = 1 tab(s), Oral, BID, Refills(s) 0, Blood glucose Start Date: 09/14/22 Status: Ordered Repeat number: 1Start: 06-18-2019 End: 26-59-7024hhey 1 tablet by mouth at bedtimeglimepiride 4 mg Tab 4 mg = 1 tab(s), Oral, Bedtime, Refills(s) 0, Blood glucose Start Date: 09/14/22 Status: OrderedStart: 06-18-2019 End: 87-42-7382gdsf 1 mg by mouth once dailyGlimepiride Discontinued 1 MG PO Daily 0 June 18, 2019 1:10pm December 20, 2023 11:51amStart: 06-15-2019 End: 13-93-1159text 2 mg by mouth once dailyGlimepiride Discontinued 2 MG PO Daily June 15, 2019 1:00am June 18, 2019 1:11pmStart: 04-10-2019 End: 34-65-1498royw 2 mg by mouth once dailyGlimepiride 4 mg tablet Discontinued 2 MG PO Daily June 15, 2019 1:00am June 18, 2019 1:11pm Komd-Cajfq-Ubg-D3-Hyal-Silvio Bor (1 source)Start: 31-04-1705okkp 1 tablet by mouth twice daily Iwyf-Vdgie-Fvt-D3-Hyal-Silvio Bor Active 1 TAB PO Twice daily December 20, 2023 12:69ttUovf-Nohey-Pqi-D3-Hyal-Silvio Bor 750 mg-100 mg- 25 mcg tablet (1 source)Start: 91-77-4866dhkm 1 tablet by mouth twice daily Imtt-Zgswi-Bja-D3-Hyal-Silvio Bor 750 mg-100 mg- 25 mcg tablet Active 1 TAB PO Twice daily December 20, 2023 12:00amglucosamine sulfate 500 mg oral capsule (9 sources)Start: 44-04-5450nyoi 1 capsule by mouth twice dailyglucosamine 500 mg Cap 500 mg = 1 cap(s), Oral, BID, Arthritis Start Date: 04/10/19 Status: OrderedRepeat number: 1Start: 94-01-0963daps 1 capsule by mouth once daily glucosamine 500 mg Cap 500 mg = 1 cap(s), Oral, Daily, Arthritis Start Date: 04/10/19 Status: OrderedGlucosamine Chondr 500 Complex - (6 sources)Glucosamine Chondr 500 Complex - as directed Orally TWICE A DAY ActiveGlucosamine Chondr 500 Complex - as directed Orally TWICE A DAY Not-Taking Glucosamine Chondr 500 Complex - as directed Orally Egajps21 hr isosorbide mononitrate 120 mg extended release oral tablet (16 sources)Nitrate VasodilatorStart: 13-01-2400gxgv 1 tablet by mouth once daily, then take 1 tablet by mouth every twenty-four hoursIsosorbide Mononitrate 120 mg tablet extended release 24 hr Active 120 MG PO Daily December 20, 2023 1 2:00amStart: 25-91-3818mugcwgvowj mononitrate 60 mg ER Tab 120 mg = 2 tab(s), Oral, qAM, Refills(s) 0, High blood pressureStart Date: 09/14/22 Status: Ordered Repeat number: 1Start: 22-27-4778tbzz 1 tablet by mouth once daily in the morningisosorbide mononitrate 60 mg ER Tab 60 mg = 1 tab(s), Oral, qAM, Refills(s) 0, High blood pressure Start Date: 09/14/22 Status: Ordered ketoconazole 20 mg/ml topical cream (13 sources)Azole AntifungalStart: 36-24-0259Uqrxclxqhflz 2 % cream Active 1 APPLIC TOPICAL Twice daily December 20, 2023 12:00amStart: 29-56-8961dmaebgpqupqk Topical, BID, Refills(s) 0 Start Date: 11/19/22 Status: Ordered Repeat number: 1 Start: 75-11-5459vchbqpjrtgno Topical, BID, Refills(s) 0 Start Date: 11/19/22 Status: OrderedKetoconazole 2 % 1 application Externally Twice a day Active Ketoconazole 2 % 1 application Externally Twice a day ActiveKetoconazole- Hydrocortisone 2 & 1 % kit (1 source)Ketoconazole-Hydrocortisone 2 & 1 % kit Apply topically Active levothyroxine sodium 0.05 mg oral tablet (18 sources)l-ThyroxineStart: 85-07-2768lskx 1 tablet by mouth once daily Levothyroxine 50 mcg tablet Active 50 MCG PO Daily December 20, 2023 12:00amStart: 95-42-3060uvkc 1 tablet by mouth once dailylevothyroxine 50 mcg (0.05 mg) Tab 50 mcg = 1 tab(s), Oral, Daily, Refills(s) 0, Thyroid Start Date: 03/24/20 Status: Ordered Repeat number: 1liothyronine sodium 0.005 mg oral tablet (11 sources)l-TriiodothyronineStart: 86-06-0354ouzt 1 tablet by mouth once daily Liothyronine 5 mcg tablet Active 5 MCG PO Daily December 20, 2023 12:00amStart: 60-20-6823srzp 1 tablet by mouth once dailyliothyronine 5 mcg Tab 5 mcg = 1 tab(s), Oral, Daily, Refills(s) 0, Thyroid Start Date: 09/14/22 Status: Ordered Repeat number: 1lisinopril 20 mg oral tablet (20 sources)Angiotensin Converting Enzyme InhibitorStart: 61-84-4312ijlo 1 tablet by mouth once dailyLisinopril 20 mg tablet Active 20 MG PO Daily December 20, 2023 12:00amStart: 82-13-9170vgwu 2 tablets by mouth once dailylisinopril 10 mg Tab 20 mg = 2 tab(s), Oral, Daily, Refills(s) 0, High blood pressure Start Date: 02/23/21 Status: Ordered Repeat number: 1Start: 12-27-8116dsmm 1 mg by mouth once dailylisinopril 10 mg Tab mg tab(s), Oral, Daily, Refills(s) 0 Start Date: 02/23/21 Status: OrderedStart: 06-15-2019 End: 79-21-9323Xscxamvmkb 40 mg tablet Discontinued 60 MG PO Daily June 15, 2019 1:00am June 18, 2019 1:11pmStart: 06-15-2019 End: 28-83-5941pixf 60 mg by mouth once dailyLisinopril Discontinued 60 MG PO Daily June 15, 2019 1:00am June 18, 2019 1:11pmtake 1 tablet by mouth every twenty-four hoursLisinopril 20 MG 1 tablet Orally Once a day Active take 1.5 tablets by mouth every twenty-four hoursLisinopril 10 MG 1.5 tablet Orally Once a day for 90 day(s) ActiveMagnesium (7 sources)Start: 82-18-1052munu 1 tablet by mouth once dailyMagnesium Magnesium, one tab, Oral, Daily Start Date: 11/19/22 Status: Ordered Repeat number: 1Start: 96-73-6671dkvk 1 tablet by mouth once dailyMagnesium Magnesium, [...] oxide 400 mg oral tablet (2 sources)Start: 64-05-8635rkpg 1 tablet by mouth once dailyMagnesium Oxide 400 mg (241.3 mg magnesium) tablet Active 400 MG PO Daily December 20, 2023 12:00am metoprolol tartrate 50 mg oral tablet (20 sources)beta-Adrenergic BlockerStart: 85-72-1112bzwv 1 tablet by mouth twice dailymetoprolol 50 mg ER Tab 50 mg = 1 tab(s), Oral, BID, Refills(s) 0, High blood pressure Start Date: 03/24/20 Status: Ordered Repeat number: 1Start: 83-04-0030ygwe 1 tablet by mouth once dailymetoprolol 50 mg ER Tab 50 mg = 1 tab(s), Oral, Daily, Refills(s) 0, High blood pressure Start Date: 03/24/20 Status: OrderedStart: 65-55-2936kkbb 1 tablet by mouth in the morningmetoprolol tartrate (Lopressor) 50 MG tablet Take 1 tablet by mouth in the morning and 1 tablet before bedtime. 05/09/2023 Activenitroglycerin 0.4 mg sublingual tablet (20 sources)Nitrate VasodilatorStart: 19-77-8739Hdwhkpzrlcybw 0.4 mg tablet, sublingual Active 0.4 MG SUBLINGUAL every 5 to 15 minutes as needed December 20, 2023 12:00amStart: 93-67-3989idsbxbefcweer (Nitrostat) 0.[address] 1 tablet as needed by sublingual route for 30 days. 05/25/2023 ActiveStart: 94-30-1432flmitenmwubvm 0.4 mg, SubLingual, q5min, PRN Chest pain Start Date: 11/18/22 Status: Ordered Repeat number: 1Start: 06-15-2019 End: 05-55-5767Wnxnkrcpmftfj 0.3 mg Tablet, Sublingual Discontinued 0.3 MG SUBLINGUAL every 5 to 15 minutes as needed for Chest Pain June 15, 2019 1:00am December 20, 2023 11:54amNitroglycerin 0.3 MG as directed Sublingual Active pioglitazone 15 mg oral tablet (12 sources)Peroxisome Proliferator Receptor alpha Agonist, Peroxisome Proliferator Receptor gamma Agonist, ThiazolidinedioneStart: 95-83-2208hdus 1 tablet by mouth once dailypioglitazone (Actos) 15 MG tablet TAKE 1 TABLET BY MOUTH ONCE DAILY for 90 12/24/2022 Nrpxht56 hr ranolazine 500 mg extended release oral tablet (10 sources)Anti-anginalStart: 81-21-8367jdtb 1 tablet by mouth twice daily Ranolazine 500 mg tablet extended release 12 hr Active 500 MG PO Twice daily December 20, 2023 12:00amStart: 50-97-8752mqgfoqbuvi (Ranexa) 500 MG 12 hr tablet every 12 (twelve) hours 05/25/2023 ActiveStart: 43-12-0937oijy 1 tablet by mouth once dailyranolazine 500 mg oral ER Tab 500 mg = 1 tab(s), Oral, Daily Start Date: 11/18/22 Status: Ordered Repeat number: 1take 1 tablet by mouth every twelve hoursRanolazine ER 500 MG 1 tablet Orally Twice a day Activesildenafil 100 mg oral tablet (5 sources)Phosphodiesterase 5 InhibitorStart: 75-47-0685Awyolm 100 mg Tab 100 mg = 1 tab(s), Oral, As Directed, 1 hour before sexual activity, # 30 tab(s), Refills(s) 2, Pharmacy: [facility] [id number], 174, cm, 08/18/20 12:16:00 EST, Height/Length Dosing, 111, kg, 08/18/20 12:16:00 EST, Weight Dosing Start Date: 08/18/20 Status: OrderedSpiriva Respimat 1.25 mcg/inh inhalation aerosol (1 source)Start: 75-11-7453Zbchnvx Respimat 1.25 mcg/inh inhalation aerosol puff(s), Inhalation, Daily, Refill(s) 0 Start Date: 02/23/21 Status: Ordered terbinafine 250 mg oral tablet (2 sources)Allylamine AntifungalStart: 57-68-3326deah 1 tablet by mouth once dailyterbinafine 250 mg oral tablet 250 mg = 1 tab(s), Oral, Daily Start Date: 04/11/19 Status: Buvvhkc00 actuat tiotropium 0.0025 mg/actuat inhalation spray (17 sources)AnticholinergicStart: 90-34-7851cxuu 1 puff(s) by inhalation once dailyTiotropium Flanagan (Spiriva Respimat) 2.5 mcg/actuation mist Active 2 PUFF INHALATION Daily December 20, 2023 12:00amStart: 03-26-4885Spdcnsi Respimat 1.25 mcg/inh inhalation aerosol 2 puff(s), Inhalation, Daily Shortness of breath or wheezing, Refill(s) 0, COPD Start Date: 02/23/21 Status: Ordered Repeat number: 1 Start: 77-20-2209Fmormes Respimat 1.25 mcg/inh inhalation aerosol puff(s), Inhalation, [...] a day ActiveVitamin B Complex (7 sources)Start: 67-23-7570zjdp 1 capsule by mouth once dailyVitamin B Complex Active 1 CAP PO Daily December 20, 2023 12:00am administer with a mealVitamin B Complex - as directed Orally Not-TakingVitamin B Complex - as directed Orally ActiveVitamin B Complex capsule (1 source)Start: 19-82-7957vron 1 capsule by mouth once dailyVitamin B Complex capsule Active 1 CAP PO Daily December 20, 2023 12:00am administer with a meal Vitamin B Complex oral capsule (9 sources)Start: 16-21-0934dtpa 1 capsule by mouth once dailyVitamin B Complex oral capsule 1 cap(s), Oral, Daily, Prophylaxis Start Date: 03/24/20 Status: Ordered Repeat number: 1Start: 68-02-0101eszw 1 capsule by mouth once daily Vitamin B Complex oral capsule 1 cap(s), Oral, Daily, Prophylaxis Start Date: 03/24/20 Status: OrderedStart: 00-50-2571zozg 1 capsule by mouth once daily Vitamin B Complex oral capsule 1 cap(s), Oral, Daily Start Date: 03/24/20 Status: OrderedVitamin D3 (9 sources)Start: 82-70-4975wkrp 50 ug by mouth once dailyVitamin D3 50 mcg, Oral, Daily, Refills(s) 0, Prophylaxis Start Date: 08/18/20 Status: Ordered Repeat number: 1Start: 51-69-7086omfg 50 ug by mouth once dailyVitamin D3 50 mcg, Oral, Daily, Refills(s) 0, Prophylaxis Start Date: 08/18/20 Status: Ordered Start: 78-87-1165Ceqicqj D3 Refills(s) 0 Start Date: 08/18/20 Status: Ordered Vitamin D3 125 MCG (5000 UT) (1 source)take 1 capsule by mouth once dailyVitamin D3 125 MCG (5000 UT) 1 capsule Orally Once a day Active Completed/Discontinued Medications MedicationDrug Class(es)DatesSig (Normalized)Sig (Original)acetaminophen 300 mg / codeine phosphate 30 mg oral tablet (7 sources)Opioid AgonistStart: 06-15-2019 End: 93-98-1578xzds 1 tablet by mouth every six hours as needed for pain Acetaminophen-Codeine (Tylenol-Codeine #3) 300-30 mg Tablet Discontinued 300 MG PO Q6H as needed for Pain June 15, 2019 1:00am July 05, 2019 10:12am amLODIPine 2.5 mg oral tablet (20 sources)Dihydropyridine Calcium Channel BlockerStart: 43-60-0414giNHNQUlfk 2.5 mg Tab 90 EA, 0 Refill(s), TAKE 1 TABLET BY MOUTH DAILY, Refills(s) 0 Start Date: 12/10/24 Status: Ordered Repeat number: 1Start: 14-30-8140vehr 1 tablet by mouth once dailyAmlodipine 2.5 mg tablet Active 0 .ROUTE .COMPLEX November 27, 2024 11:28am TAKE 1 TABLET BY MOUTH DAILYStart: 06-05-2024 End: 86-79-2654oanc 1 tablet by mouth once dailyAmlodipine 2.5 mg tablet Discontinued 2.5 MG PO Daily June 05, 2024 1:00am November 27, 2024 1 1:29amStart: 88-46-8669ywtq 5 mg by mouth once dailyamLODIPine 10 mg Tab 5 mg = 0.5 tab(s), Oral, Daily, Refills(s) 0, High blood pressure Start Date: 02/23/21 Status: OrderedStart: 06-15-2019 End: 33-87-1359zmdk 1 tablet by mouth once dailyAmlodipine 10 mg tablet Discontinued 10 MG PO Daily June 15, 2019 1:00am December 20, 2023 11:50am atorvastatin 80 mg oral tablet (20 sources)HMG-CoA Reductase InhibitorStart: 06-15-2019 End: 76-78-1359Beroerkhfvfp 80 mg tablet Discontinued 40 MG PO Bedtime June 15, 2019 1:00am December 20, 2023 11:50amStart: 06-15-2019 End: 73-94-7009mlom 40 mg by mouth at bedtimeAtorvastatin Discontinued 40 MG PO Bedtime June 15, 2019 1:00am December 20, 2023 11:50amStart: 01-12-5617uzhl 1 tablet by mouth once dailyatorvastatin 80 mg Tab 80 mg = 1 tab(s), Oral, Daily, High cholesterol Start Date: 04/10/19 Status:Ordered Repeat number: 1 dicyclomine hydrochloride 10 mg oral capsule (7 sources)AnticholinergicStart: 06-18-2019 End: 04-54-4555bwng 1 capsule by mouth three times daily as needed for muscle spasmsDicyclomine 10 mg capsule Discontinued 10 MG PO Three times daily as needed for spasm 14 June 18, 2019 1:09pm December 20, 2023 11:59am for bladder spasmsmetFORMIN hydrochloride 1000 mg oral tablet (7 sources)BiguanideStart: 06-15-2019 End: 61-14-8422iwsw 1 tablet by mouth twice dailyMetformin 1,000 mg tablet Discontinued 1000 MG PO Twice daily June 15, 2019 1:00am June 18, 2019 1:11pmSITagliptin 100 mg oral tablet (20 sources)Dipeptidyl Peptidase 4 InhibitorStart: 06-18-2019 End: 50-16-7318Gndxuebhyjb Phosphate 100 mg tablet Discontinued 50 MG PO Daily 0 June 18, 2019 1:10pm December 20, 2023 12:02pmStart: 06-18-2019 End: 99-22-1015xvko 50 mg by mouth once dailySitagliptin Phosphate Discontinued 50 MG PO Daily 0 June 18, 2019 1:10pm December 20, 2023 12:02pmStart: 04-10-2019 End: 27-13-9415btgx 1 tablet by mouth once dailyJanuvia 100 mg Tab 100 mg = 1 tab(s), Oral, Daily, Blood glucose Start Date: 04/10/19 Status: Ordered Repeat number: 1SITagliptin Phosphate 50 MG as directed Orally Activeticagrelor 90 mg oral tablet (7 sources)Start: 06-15-2019 End: 02-92-3359jqbv 1 tablet by mouth twice dailyTicagrelor 90 mg tablet Discontinued 90 MG PO Twice daily June 15, 2019 1:00am July 05, 2019 10:12amtriamcinolone acetonide 5 mg/ml topical cream (10 sources)CorticosteroidStart: 12-20-2023 End: 63-68-7537Vozhtcjsomraf Acetonide 0.5 % cream Discontinued 1 APPLIC TOPICAL Twice a Week December 20, 2023 12:00am December 03, 2024 2:20pmStart: 11-19-2022 triamcinolone acetonide Topical, BID, PRN Itching, Refills(s) 0 Start Date: 11/19/22 Status: OrderedRepeat number: 1Start: 33-30-4901gsfavnrfuolwf acetonide Topical, BID, PRN Itching, Refills(s) 0 Start Date: 11/19/22 Status: Ordered triamcinolone (Kenalog) 0.1 % cream 1 Application ActiveTriamcinolone Acetonide 0.5 % 1 application Externally Two times a Week ActiveTriamcinolone Acetonide 0.5 % 1 application Externally Two times a Week Active Problems Active Problems Problem ClassificationProblemDateDocumented DateEpisodic/ChronicAbdominal pain (9 sources)Flank fhve75-07-5190UnmqpuffFyjxo and unspecified renal failure (7 sources)Renal failure syndrome; Translations: [Unspecified kidney failure] 79-44-7416MseejwaSrxan and unspecified renal failure (20 sources)Acute renal failure syndrome; Translations: [Injury of kidney]Onset: 144746-84-7574TombvvnrWixeabs on above:Problem List clean-up per request of Phys. EHR CmteAcute myocardial infarction (9 sources)Myocardial twjcuqalto35-18-8834LgnxhsxKalacwuy of urinary tract (20 sources)Kidney stone; Translations: [Calculus of kidney]Onset: 05-26-2021 Resolved: 53-77-0186NfrhvqomWzyxyyc on above:Problem List clean-up per request of Phys. EHR CmteCancer of prostate (13 sources)Malignant tumor of prostate; Translations: [Malignant neoplasm of prostate]Onset: 849011-94-2738FbwxwecTapdapf kidney disease (20 sources)Chronic kidney disease; Translations: [Chronic kidney disease, unspecified]94-01-0532SzwowbkVysisve kidney disease (13 sources)Chronic kidney disease; Translations: [Chronic kidney disease, stage III (moderate)]Onset: 05-26-2021 Resolved: 92-27-5638Ixmtmtw obstructive pulmonary disease and bronchiectasis (11 sources)Chronic obstructive lung disease; Translations: [Chronic obstructive pulmonary disease, unspecified]Onset: 697055-05-7901HpmxqyaZacuqwyffy heart failure; nonhypertensive (2 sources)Chronic diastolic (congestive) heart failure; Translations: [Chronic diastolic (congestive) heart failure]Onset: 54-55-6981PitbffwGmufchow atherosclerosis and other heart disease (20 sources)Coronary arteriosclerosis; Translations: [Atherosclerotic heart disease of [place] coronary artery without angina pectoris]Onset: 05-16-2013 62-65-9324BemxmkiJylpitv on above:Problem List clean-up per request of Phys. EHR CmteCoronary atherosclerosis and other heart disease (8 sources)Patient post percutaneous transluminal coronary angioplasty; Translations: [Coronary angioplasty status]Onset: 21-53-5607UopufvdmMdafseleyn and other anemia (6 sources)Anemia of renal disease; Translations: [Anemia in chronic kidney disease]ChronicDeficiency and other anemia (2 sources)Anemia in chronic kidney diseaseChronicDiabetes mellitus with complications (20 sources)Diabetes mellitus; Translations: [Type 2 diabetes mellitus with other circulatory complications]Onset: 05-26-2021 Resolved: 00-59-7313KiesrpiPdtfusu on above:Problem List clean-up per request of Phys. EHR CmteDiabetes mellitus without complication (20 sources)Type 2 diabetes mellitus; Translations: [Diabetes mellitus]Onset: [id number] mellitus without complication (1 source)Other abnormal glucose; Translations: [OTHER ABNORMAL GLUCOSE]Onset: 37-00-1770VmkztypxQjxyrpako of lipid metabolism (20 sources)Hyperlipidemia; Translations: [Hyperlipidemia, unspecified]Onset: 298625-67-1127YmefhlxAnkuvltlf hypertension (20 sources)Hypertensive disorder; Translations: [Essential (primary) hypertension]Onset: 198232-85-4279EacdhykBgsje and electrolyte disorders (18 sources)Metabolic acidosis; Translations: [Metabolic acidosis]Onset: 04-70-202148651151-50-4088EbzropqkHfocaht on above:Problem List clean-up per request of Phys. EHR CmteGenitourinary symptoms and ill-defined conditions (20 sources)Nocturia; Translations: [Nocturia]Onset: 84-65-8950JrlkvqizHxnlewx on above:Problem List clean-up per request of Phys. EHR CmteHyperplasia of prostate (20 sources)Benign prostatic hypertrophy with outflow obstruction; Translations: [Benign prostatic hyperplasia with lower urinary tract symptoms]Onset: 35-24-4701RztxrbzJjzsuwp on above:Problem List clean-up per request of Phys. EHR CmteHypertension with complications and secondary hypertension (20 sources)Chronic kidney disease due to hypertension; Translations: [Hypertensive chronic kidney disease withstage 1 through stage 4 chronic kidney disease, or unspecified chronic kidney disease]Onset: 05-26-2021 Resolved: 37-35-7268IoduexxVaxfveqkn; nephrosis; renal sclerosis (10 sources)Atrophy of left kidney; 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)] 98-04-4868NdokrfiStffvetnotlnz gastroenteritis (9 sources)Postprandial rwonshcw71-49-9271DebdriwtEsmtw and unspecified benign neoplasm (9 sources)Hyperplastic polyp of large zirmaqlsc89-53-9829RpvtdaqrUzyos connective tissue disease (4 sources)Pain in right leg; Translations: [PAIN IN RIGHT LEG]Onset: 11-10-2022 EpisodicOther diseases of kidney and ureters (8 sources)Secondary hyperparathyroidism; Translations: [Secondary hyperparathyroidism of renal origin]38-84-8289RojimuvCeblj diseases of kidney and ureters (9 sources)Secondary hyperparathyroidism of renal origin; Translations: [Secondary hyperparathyroidism (of renal origin)]Onset: 05-26-2021 Resolved: 56-24-5738MepexhjQgmfd diseases of kidney and ureters (9 sources)Urinary tract obstruction; Translations: [Other obstructive and reflux uropathy]Onset: 32-09-5616ZsazcjdsUzvcxky on above:Problem List clean-up per request of Phys. EHR CmteOther diseases of kidney and ureters (17 sources)Hydronephrosis; Translations: [Unspecified hydronephrosis]08-08-2019 EpisodicComment on above:Problem List clean-up per request of Phys. EHR Cmte Other diseases of kidney and ureters (9 sources)Hydronephrosis due to ureteral tucblyqwahq65-65-3097MhubittiLermg diseases of kidney and ureters (7 sources)Acute renal insufficiency; Translations: [Disorder of kidney and ureter, unspecified]30-14-6754NigxlkgiDxgbapa on above:Problem List clean-up per request of Phys. EHR CmteOther diseases of kidney and ureters (7 sources)Occlusion of ureter; Translations: [Crossing vessel and stricture of ureter without hydronephrosis]22-34-3678JixukimhXputjeq on above:Problem List clean-up per request of Phys. EHR CmteOther diseases of kidney and ureters (7 sources)Obstructive nephropathy; Translations: [Other obstructive and reflux uropathy]38-46-3468FgdxyeraQjtgkjb on above:Problem List clean-up per request of Phys. EHR CmteOther diseases of kidney and ureters (1 source)Disorder of kidney and ureter, unspecified; Translations: [Unspecified disorder of kidney and ureter]71-00-8479VsfpragjNsmam diseases of kidney and ureters (7 sources)Hydronephrosis with renal and ureteral calculous obstruction; Translations: [Calculus of ureter]31-34-4513VnfystjoPmvhtsi on above:Problem List clean-up per request of Phys. EHR CmteOther diseases of kidney and ureters (1 source)Other obstructive and reflux uropathy; Translations: [Other specified disorders of kidney and ureter]43-02-4032WgsfskcwQoqwn gastrointestinal disorders (9 sources)Occult blood in gcfjqi57-22-8502KyarcdfyGmxox lower respiratory disease (7 sources)Nodule of lung; Translations: [Solitary pulmonary nodule]08-15-2022 EpisodicComment on above:Problem List clean-up per request of Phys. EHR Cmte Other lower respiratory disease (1 source)Other forms of dyspnea; Translations: [OTHER FORMS OF DYSPNEA]Onset: 77-87-4466QaeffbclIruof lower respiratory disease (6 sources)Shortness of breath; Translations: [SHORTNESS OF BREATH]Onset: 28-62-9091SggjvyviIuwuh male genital disorders (12 sources)Male erectile dysfunction, unspecified; Translations: [Erectile dysfunction]Onset: 41-71-3275OupmhnjDoozn male genital disorders (4 sources)Disorder of prostate, unspecified; Translations: [DISORDER OF PROSTATE UNSPECIFIED]Onset: 18-55-5457LkcwhdviZmyiq nervous system disorders (2 sources)Carpal tunnel syndrome; Translations: [Carpal tunnel syndrome, unspecified upper limb]Onset: 025225-83-0509ItnwigkEowrr nutritional; endocrine; and metabolic disorders (6 sources)Morbid obesity; Translations: [Morbid (severe) obesity due to excess calories]ChronicOther nutritional; endocrine; and metabolic disorders (6 sources)Body mass index 30+ - obesity; Translations: [Body mass index (BMI) 36.0-36.9, adult]ChronicOther nutritional; endocrine; and metabolic disorders (7 sources)H/O: hpqtodrfijjcsn82-80-3367CsinzffdZmhix nutritional; endocrine; and metabolic disorders (1 source)Hyperuricemia; Translations: [Hyperuricemia without signs of inflammatory arthritis and tophaceous disease]59-75-0898JuzlthzcMtyqh nutritional; endocrine; and metabolic disorders (1 source)Hyperuricemia without signs of inflammatory arthritis and tophaceous disease; Translations: [Other abnormal blood chemistry]76-01-3227QkshaximNaxho screening for suspected conditions (not mental disorders or infectious disease) (20 sources)Raised prostate specific antigen; Translations: [Elevated prostate specific antigen [PSA]]Onset: 118207-45-4422RrmbeoajXfmaabi on above: Problem List clean-up per request of Phys. EHR CmteRheumatoid arthritis and related disease (9 sources)Rheumatoid nsxyqgwoq87-20-6851TbcgowsSqnypotjd and history of mental health and substance abuse codes (7 sources)Ex-smoker; Translations: [Personal history of nicotine dependence] Onset: 42-32-8068VxagapfmBcuibzw disorders (1 source)Hypothyroidism, unspecified; Translations: [HYPOTHYROIDISM UNSPECIFIED]Onset: 54-61-9524ZbjzoxiNagjtxgljnwz (9 sources)Drug therapy sfbevfh30-64-6957Metanrmoaarh (4 sources)CHRN KIDNEY DISEASE STG 3 UNSP; Translations: [CHRN KIDNEY DISEASE STG 3 UNSP]Onset: 90-21-3324Xnkajxcogrho (1 source)CONTACT W/AND (SUSP) EXPOS COVID-19; Translations: [CONTACT W/AND (SUSP) EXPOS COVID-19]Onset: 03-10-0150Yanikmunkeav (1 source)Benign prostatic hyperplasia with lower urinary tract symptoms; Translations: [Benign prostatic hyperplasia with lower urinary tract symptoms] Onset: 21-39-8483Ahfqsgz tract infections (14 sources)Pyelonephritis; Translations: [Tubulo-interstitial nephritis, not specified as acute or chronic]58-20-1864BjijhvkxBfeelzq on above:Problem List clean-up per request of Phys. 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 ASPIRIN]Onset: 46-09-1504TqgraszcLwvzu aftercare (1 source)Other mcfp (current) drug therapy; Translations: [OTH MAINFRAME PROGRAMMER CURRENT DRUG THERAPY]Onset: 09-88-8705MflonjklUjgeh connective tissue disease (4 sources)Impingement syndrome of unspecified shoulder; Translations: [IMPINGEMENT SYNDROME UNS SHOULDER]Onset: 75-91-9409RiwgkdnfGzjdw non-traumatic joint disorders (1 source)Pain in right shoulder; Translations: [PAIN IN RIGHT SHOULDER]Onset: 81-80-1427SnbhozziTufvj non-traumatic joint disorders (4 sources)Pain in left knee; Translations: [PAIN IN LEFT KNEE]Onset: 02-03-2022 EpisodicUnclassified (1 source)CHRN KIDNEY DISEASE STG 3 UNSP; Translations: [CHRN KIDNEY DISEASE STG 3 UNSP]Onset: 08-18-2022 Results Test NameValueInterpretationReference ZnsakCuksuhkh46ez 77-89-120822Ld informed NormalAccess Hospital DaytonFollow-Upon 66-73-5916Nenpln-[id number] Victorino Smyth 1940 M Date Provider Department Center 01/28/2025 Kia-JENNIFER HUYNH FABIOLA Ruiz Family History Problem Relation Age of Onset No Known Problems Mother No Known Problems Father Family Status - Relation Status Age at Mother Father Level of Service:98574 [place] OFFICE/OUTPATIENT ESTABLISHED MOD MDM 30 [facility]36on 21-96-239666Epwmmvh Dr. Huynh of message prior to him [...] we would wait for the labsNormalUniversity [facility] CenterT[facility]2025 [id number] Victorino Smyth 1940 M Date Provider Department [place] 01/16/2025 DELFIN AKBAR BH FABIOLA Mcneill [facility] Family History Problem Relation Age of Onset No Known Problems Mother No Known Problems Father Family Status - Relation Status Age at Mother Father Deceased[address] [phone] call from patient. Patient states Dr. Alfaro [...] to the increase in the ranolazine. Please advise.[facility] CenterTelephoneon [id number] Aristides Smythdanyelle Adams 1940 Date Provider Department Center 01/02/2025 THALIA BRAVO [facility] Family History Problem Relation Age of Onset No Known Problems Mother No Known Problems Father Family Status - Relation Status Age at Mother FatherNormalUniKettering Health Springfield 88-23-6406HCH&P reviewed. The patient was examined and there are no changes to the H&P. Consent for blood products obtained. Risks, benefits, and alternatives to procedure discussed with patient in detail who expressed understanding and agreed to proceed. Risks discussed included progression or renal disease, renal failure, bleed, heart attack, stroke, and .[facility] CenterNURSNOTEon 39-68-8126FBSFICDOWB educated pt on discharge instructions. RN encouraged pt to voice any questions or concerns. Pt verbalizes no questions or concerns at this time. Pt was wheeled off unit with all belongings.[facility] Centeron 42-89-3762GNTT Cardiology - [facility] Subjective Victorino Smyth is a 84 [...] kidney disease) stage 3, GFR 30-59 ml/min ([facility]/HCC) Clot retention of urine Coronary artery disease [...] March of 2013, and then developed acute IN related to ISR of the LAD stent on 09/28/2016 and underwent emergent Promus JOSE RAMON stent to the LAD at [facility] [...] There is no abdominal (more content not included)...NormalUnSumma HealthOffice Visiton 59-27-6218Ezaslq-up [id number] Victorino Smyth 1940 M Date Provider Department Center 12/24/2024 Kia-AUTUMNJENNIFER [facility] Family History Problem Relation Age of Onset No Known Problems Mother No Known Problems Father Family Status - Relation Status Age at Mother Father Level of Service:32464 [place] OFFICE/OUTPATIENT ESTABLISHED HIGH MDM [facility]Amb[facility] Summaryon 12-10-2024 Ambulatory Visit SummaryAmbulatory Visit [...] Comments: 6 mos w/ PSA Where: [address] [place] [address]- You Need to Complete the Following [...] 1 Tablets By Kamala (more content not included)...[facility]'s Medical CenterCHEMISTRYOrdered By: SYSTEM SYSTEM on 97-16-1191Kfru PSA [Mass/Vol]0.8 ng/mLInvalid Interpretation CodeRemisol ChemComment on above:Interpretive Data: The concentration of free PSA and total PSA determined with assays from different manufacturers can vary due to differences in assay methods and specificity. Values obtained with di fferent ui software engineer's assays cannot be used interchangeably. The methodology used to obtain this result was chemiluminescence using [employer]'s Access Hybritech PSA reagent and Access Hybritech [...] used for this result was chemiluminescence using [employer]'s Access Hybritech PSA reagent.Urology Office/Clinic Noteon 31-29-6354Cqhicsq Office/Clinic NoteUrology Office/Clinic Note Chief Complaint 6mo [...] he lost the order. -Obtain VALENTINA @ [facility]. Will call pt w results. [...] Information CARLOS OLIVEROS, Ni P, URL [address] [address] [place], [place] [address]- Additional Instructions: 6 mos w/ PSA Patient Education Prostate Cancer Screening IVale, personally scribed for Dr. Olivares on 12/10/2024 11:37:28. . Documentation recorded by the Vale alvarez acurately reflects the services(s) I performed anddecisions made by me. Authenticated by Dr. Olivares on 12/10/2024 11:46:32. Portions of this record may have been created with voice recognition artificial intelligence software, specifically Gridcentric, CYPHER and or [employer] Experience. Substitutions may have occurred due to [...] Biopsy of prostate ( (more content not included)...[facility]'s Medical CenterComment on above:Result Comment: Electronically Signed By: Ni OLIVARES MD\.br\Date and Time Signed: 12/10/24 11:47 EDT\.br\Electronically Co- Signed By: Vale Bryan\.br\Date and Time Co-Signed: 12/10/24 11:37 EDT Reminderson 26-00-5291VngnpaycsIwaldxhcq From: Shira Mauricio To: JACOB Olivares; Sent: [...] ) Other: PROVIDER RELATED REMINDER:_ ( ) Ct Scan Tech ( ) Call Pharmacy ( ) Call Lab ( ) Other: Special Instructions:_ Comments:_ LM on reminding pt to get VALENTINA done, advise pt to call back LM on advise pt the order will be sent [facility] to get PSA & VALENTINA doneNormalFisher Brook Lane Psychiatric CenterErythrocyte distribution width Auto (RBC) [Ratio]on 05-14-7447Zfulsyqtzav distribution width (RBC) [Ratio]Erythrocyte distribution width [Ratio] by Automated count11.0-15.0[facility] Estimated glomerular filtration rate (GFR) non- Americanon 11-27-2024 GFR/1.73 sq M.predicted among non-blacks MDRD (S/P/Bld) [Vol rate/Area]Estimated glomerular filtration rate (GFR) non- AmericanLow>=60 mL/min/1.73m 2 [facility] CincinnatiHematocrit Auto (Bld) [Volume fraction]on 27-66-3075Zpekmwpfky (Bld) [Volume fraction]Hematocrit [Volume Fraction] of Blood by Automated wimwnRta88.0-54.0[facility] CincinnatiHemoglobin [Mass/volume] in Bloodon 30-87-6212Cfzbzioyca (Bld) [Mass/Vol]Hemoglobin [Mass/volume] in AbivhWoc96.0-18.0[facility] CincinnatiLaboratory - Chemistry and Chemistry - challengeon 94-38-3126Jobsyba [Mass/Vol]3.3 g/dLLow 3.4-5.0[facility] CincinnatiCalcium [Mass/Vol]9.2 mg/dL8.5-10.1 [facility] CincinnatiChloride [Moles/Vol]109 mmol/VAxek76-597 [facility] CincinnatiCO2 [Moles/Vol]24.5 mmol/L21.0-32.0[facility] CincinnatiCreatinine [Mass/Vol]1.70 mg/dLHigh0.70-1.30[facility] CincinnatiGFR/1.73 sq M.predicted MDRD (S/P/Bld) [Vol rate/Area]47 mL/min/{1.73_m2}Low>=60 mL/min/1.73m 2FSouthern Ohio Medical CenterGlucose [Mass/Vol]152 mg/nGMoou14-347KfigpwcmqSelect Medical Specialty Hospital - CincinnatiMagnesium [Mass/Vol]1.8 mg/dL1.8-2.4FSouthern Ohio Medical CenterPotassium [Moles/Vol] 4.7 mmol/L3.5-5.1FKettering Health – Soin Medical Centerodium [Moles/Vol]145 mmol/L 136-145[facility] CincinnatiUrate [Mass/Vol]6.8 mg/dL3.5-7.2 [facility] CincinnatiUrea nitrogen [Mass/Vol]23.0 mg/dLHigh7.0-18.0 [facility] CincinnatiUrea nitrogen/Creatinine [Mass ratio]13.5 mg/mg [facility] CincinnatiLaboratory - Urinalysison 49-18-3439Vumnwcx (U) [Mass/Vol]33.1 mg/dLHigh<=11.9[facility] CincinnatiLeukocytes [#/volume] corrected for nucleated erythrocytes in Blood by Automated counon 46-85-3234FKO corrected for nucl RBC Auto (Bld) [#/Vol]Leukocytes [#/volume] corrected for nucleated erythrocytes in Blood by Automated coun4.0-11.0[facility] CincinnatiMCH Auto (RBC) [Entitic mass]on 35-15-8464WNL (RBC) [Entitic mass]MCH [Entitic mass] by Automated vpsscZztf01.9-34.0[facility] CincinnatiMCHC Auto (RBC) [Mass/Vol]on 68-14-1254PWQP (RBC) [Mass/Vol]MCHC [Mass/volume] by Automated count29.9-35.2FSouthern Ohio Medical CenterMCV Auto (RBC) [Entitic vol]on 46-15-5727HNC (RBC) [Entitic vol] MCV [Entitic volume] by Automated jvufkLhkw26.0-94.0[facility] CincinnatiNo Panel Informationon 580824-Kmoffez Vitamin D Total70.4 ng/mL [facility] CincinnatiComment on above:<20 ng/mL Vit D wezqtqnwu45- <30 ng/mL Vit D kgahtilsmjnu08-991 ng/mL Vit D sufficient>100 ng/mL Potential ToxicityParathyroid Hormone (Intact)40 pg/uW87-58FhpqohyumSelect Medical Specialty Hospital - CincinnatiComment on above:Performed at: - [facility] [id number] Director: Lee Bob PhD, Phone: [phone] Phosphorus Level3.9 mg/dL2.6-4.7FSouthern Ohio Medical CenterUrine Random Wgdnqzpjfn079.73 mg/dL20.00-300.00[facility] CincinnatiPlatelet mean volume Auto (Bld) [Entitic vol]on 51-13-3509Xvwanqln mean volume (Bld) [Entitic vol]Platelet mean volume [Entitic volume] in Blood by Automated count9.5-13.5 [facility] CincinnatiPlatelets Auto (Bld) [#/Vol]on 11-27-2024 Platelets (Bld) [#/Vol]Platelets [#/volume] in Blood by Automated pemkd168-173 [facility] CincinnatiRBC Auto (Bld) [#/Vol]on 43-57-1652FUM (Bld) [#/Vol]Erythrocytes [#/volume] in Blood by Automated countLow4.70-6.10Kindred Hospital Daytonerum or plasma anion gap determinationon 75-44-3971Iwubs gap [Moles/Vol]Serum or plasma anion gap determinationSelect Medical Specialty Hospital - CincinnatiUrine protein/creatinine ratioon 06-68-0523Jnxraov/Creatinine (U) [Ratio]Urine protein/creatinine ratioSelect Medical Specialty Hospital - CincinnatiAmbulatory Visit Summaryon 51-88-1714Vxafmwdcac Visit SummaryAmbulatory Visit Summary SMYTH VICTORINO M [...] OLIVARES MD Where: [facility] [place] [facility] [address] [place] [address]- You Need to Schedule the Following Appointments Follow Up with Ni OLIVARES MD, URL When: Where: [address] [address]- Medications What How Much When [...] physician if q (more content not included)...Normal [facility]-FairhillUrology Office/Clinic Noteon 11-31-0564Fizxccc Office/Clinic NoteUrology Office/Clinic Note Chief Complaint 1 [...] Information CARLOS OLIVEROS, Ni P, URL [address] [place], [place] [address]- Additional Instructions: 6 mos with PSA and [...] with voice recognition artificial intelligence software, specifically Gridcentric, CYPHER and or [employer]. Substitutions may have occurred due to the [...] Cystoscopic removal of u (more content not included)...[facility] CenterComment on above:Result Comment: Electronically Signed By: Ni OLIVARES MD P\.br\Date and Time Signed: 06/12/24 13:29 EST\.br\Electronically Co-Signed By: Shira Mauricio P\.br\Date and Time Co-Signed: 06/12/24 11:55 EST Office Visiton 13-08-1184Vnldgd-up [id number] Victorino Smyth 1940 M Date Provider Department Center 05/21/2024 JENNIFER SMITH [facility] Family History Problem Relation Age of Onset No Known Problems Mother No Known Problems Father Family Status - Relation Status Age at Mother Father Level of Service:77141 [place] OFFICE/OUTPATIENT ESTABLISHED LOW MDM 20 [facility] HospitalEry[facility] distribution width Auto (RBC) [Ratio]on 92-22-6422Famialhiorz distribution width (RBC) [Ratio]12.9 %11.0-15.0 [facility] CincinnatiEstimated glomerular filtration rate (GFR) non- Americanon 25-03-7308YJU/1.73 sq M.predicted among non-blacks MDRD (S/P/Bld) [Vol rate/Area]35 mL/min/{1.73_m2}>=60[facility] CincinnatiHematocrit Auto (Bld) [Volume fraction]on 32-60-7314Yzhreiarop (Bld) [Volume fraction]41.9 %42.0-54.0[facility] CincinnatiHemoglobin [Mass/volume] in Bloodon 92-93-8611Bkvenaynus (Bld) [Mass/Vol]14.0 g/dL14.0-18.0 [facility] CincinnatiIron binding capacity [Mass/volume] in Serum or Plasmaon 56-31-3676Wbmc binding capacity [Mass/Vol]279.0 ug/dL250.0-450.0 [facility] CincinnatiIron saturation [Mass Fraction] in Serum or Plasmaon 70-03-4247Jrub saturation [Mass fraction]36.2 %[facility] CincinnatiLaboratory - Chemistry and Chemistry - challengeon 12-14-2023 Albumin [Mass/Vol]3.3 g/dL3.4-5.0[facility] CincinnatiCalcium [Mass/Vol]8.5 mg/dL8.5-10.1FSouthern Ohio Medical CenterChloride [Moles/Vol] 106 mmol/P80-327CclpnajtdSelect Medical Specialty Hospital - CincinnatiCO2 [Moles/Vol]24.0 mmol/L 21.0-32.0[facility] CincinnatiCreatinine [Mass/Vol]1.84 mg/dL 0.70-1.30[facility] CincinnatiFerritin [Mass/Vol]111.0 ng/mL 26.0-388.0[facility] CincinnatiGFR/1.73 sq M.predicted MDRD (S/P/Bld) [Vol rate/Area]43 mL/min/{1.73_m2}>=60[facility] CincinnatiGlucose [Mass/Vol]155 mg/kX76-823OtgtcwziuSelect Medical Specialty Hospital - CincinnatiIron [Mass/Vol]101.0 ug/dL65.0-175.0[facility] CincinnatiMagnesium [Mass/Vol]1.7 mg/dL1.8-2.4FSouthern Ohio Medical CenterPotassium [Moles/Vol] 4.6 mmol/L3.5-5.1FKettering Health – Soin Medical Centerodium [Moles/Vol]140 mmol/L 136-145[facility] CincinnatiUrate [Mass/Vol]6.4 mg/dL3.5-7.2 [facility] CincinnatiUrea nitrogen [Mass/Vol]21.0 mg/dL7.0-18.0 [facility] CincinnatiUrea nitrogen/Creatinine [Mass ratio]11.4 mg/mg [facility] CincinnatiBilirubin Ql (U)NegativeNEGATIVESelect Medical Specialty Hospital - CincinnatiGlucose (U) [Mass/Vol]NegativeNEGATIVESelect Medical Specialty Hospital - CincinnatiKetones Ql (U)NegativeNEGATIVESelect Medical Specialty Hospital - CincinnatipH (U)5.5 [pH]5.0-9.0[facility]red Hospital Daytonpecific gravity (U) [Rel density]1.0151.005-1.025[facility] CincinnatiUrobilinogen Qn (U)0.2 {Wil'U}/dL0.2-1.0[facility] CincinnatiLaboratory - Specimen informationon 75-42-6545Mntogzbnph (U)CLEARCLEARFSouthern Ohio Medical CenterColor (U)YELLOWYELLOWSelect Medical Specialty Hospital - CincinnatiLaboratory - Urinalysison 25-37-4178Ulhhfmhgr esterase Test strip Ql (U)NegativeNEGATIVE [facility] CincinnatiMucus Ql (Urine sed)NONE SEENNONE SEENSelect Medical Specialty Hospital - CincinnatiNitrite Ql (U)NegativeNEGATIVESelect Medical Specialty Hospital - CincinnatiProtein (U) [Mass/Vol]10.9 mg/dL<=11.9[facility] Protein Ql (U)NegativeNEG/TRACESelect Medical Specialty Hospital - CincinnatiLeukocytes [#/volume] corrected for nucleated erythrocytes in Blood by Automated counon 77-01-4489QGK corrected for nucl RBC Auto (Bld) [#/Vol]6.2 10 3/uL4.0-11.0 [facility] CenterH Auto (RBC) [Entitic mass]on 96-32-3333TLA (RBC) [Entitic mass]33.7 pg25.9-34.0[facility] CincinnatiMCHC Auto (RBC) [Mass/Vol]on 35-92-3129ZEWH (RBC) [Mass/Vol]33.4 g/dL29.9-35.2FSouthern Ohio Medical CenterMCV Auto (RBC) [Entitic vol]on 74-71-0105VNV (RBC) [Entitic vol]101.0 fL80.0-94.0[facility] CincinnatiNo Panel Informationon 16-77-649528864238-Dtzajwe Vitamin D Total66.1 ng/mLSelect Medical Specialty Hospital - CincinnatiComment on above:<20 ng/mL Vit D pzisbbjpj49-<30 ng/mL Vit D mtgsamzmaqds41-899 ng/mL Vit D sufficient>100 ng/mL Potential Toxicity Parathyroid Hormone (Intact)50 pg/lC62-00ZijocfenlSelect Medical Specialty Hospital - Cincinnati Comment on above:Performed at: - [facility] [id number] Director: eLe Bob PhD, Phone: [phone] Level 3.5 mg/dL2.6-4.7FSouthern Ohio Medical CenterUrine BacteriaNONE SEEN #/HPF NONE SEENSelect Medical Specialty Hospital - CincinnatiUrine Occult BloodNegativeNEGATIVE [facility] - CincinnatiUrine Other CastsNONE SEEN #/LPFNONE SEEN [facility] - CincinnatiUrine Other CrystalsNone Seen #/HPFNone Seen [facility] - CincinnatiUrine Random Tzooltujce99.05 mg/dL20.00-300.00 [facility] CincinnatiUrine RBCNONE SEEN #/HPF0-2FSouthern Ohio Medical CenterUrine Squamous Epithelial CellsRARE #/LPFNONE/RARESelect Medical Specialty Hospital - CincinnatiUrine WBCNONE SEEN #/HPFNONE SEENSelect Medical Specialty Hospital - CincinnatiPlatelet mean volume Auto (Bld) [Entitic vol]on 62-72-1507Xpcymkti mean volume (Bld) [Entitic vol]11.2 fL9.5-13.5FSouthern Ohio Medical [place] Auto (Bld) [#/Vol]on 25-25-2974Hkpadxlbi (Bld) [#/Vol]168 10 3/uL 150-450[facility] - CincinnatiRBC Auto (Bld) [#/Vol]on 87-93-5177ZXJ (Bld) [#/Vol]4.15 10 6/uL4.70-6.10[facility]red Hospital Daytonerum or plasma anion gap determinationon 57-62-4354Uauaf gap [Moles/Vol]14.6 mmol/L [facility] CincinnatiUrine protein/creatinine ratioon 12-14-2023 Protein/Creatinine (U) [Ratio]0.15[facility] Hospital - CincinnatiLon 75-87-7988MUimizwff: [id number] Received: 10/19/23 Status: [facility] Num: [id number] Spec Type: Surgical Subm Dr: NON STAFF Tissues: A Colon Biopsy (DESC POLYP AT 50 CM) Procedures: HE/2, Gross/Micro L4 Age/ Patient Sex Location Account Attending Physician SmythVictorino 83/M LABELL [id number] NON STAFF SPEC NUM: [id number] RECD: 10/19/23 STATUS: HIMANSHU WILLIAMSON NUM: [id number] HYUN: 10/18/[address]: EMELY STAFF ENTERED: 10/19/23 [facility] DR: Charito,Lab SPEC TYPE: Surgical DEPT: MIO [...] colon polyp at 50 cm CPT Codes 90901 Specimen: [id number] Received: 10/19/23 Status: HIMANSHU Williamson Num: [id number] Spec Type: Surgical Subm Dr: EMELY ORTIZ Tissues: A Colon Biopsy (DESC POLYP AT 50 CM) Procedures: HE/2, Gross/Micro L4 Patient: Victorino Smyth [id number] (Continued) Signed (signature on file) Ana Villegas MD 10/20/[address] [place] [address] Physician GroupCT ABDOMEN PELVIS W CONon 88-54-7840[place], [place] [address] CT Scan Report Signed Patient: VICTORINO SMYTH MR#: [id number] : 1940 Acct:[id number] Age/Sex: 83 / M ADM Date: 09/27/23 Loc: CT Attending Dr: Jennifer Driscoll D.O. Ordering Physician: Jennifer Driscoll D.O. Date of Service: 09/27/23 Procedure(s): CT abdomen pelvis w con Accession Number(s): [id number] cc: Jose Alfaro M.D. [place] [id number] Patient Name: VICTORINO SMYTH MRN: [id number] date: 1940 Sex: M Assigned Patient Location: CT Current Patient Location: CT Accession/Order Number: [id number] Exam Date: 09/27/2023 09:05 Report Date: 09/27/2023 16:05 At the request of: JENNFIER DRISCOLL Procedure: CT abdomen pelvis w con [...] Signed By: 09/27/23 1607 DD/ 1605 TD/TT: Motor And Generator Assembler:TBHRadiology, Radiologist, MD - 09/27/2023 [place] [address] CT Scan Report Signed Patient: VICTORINO SMYTH MR#: [id number] : 1940 Acct:[id number] Age/Sex: 83 / M ADM Date: 09/27/23 Loc: CT Attending Dr: Jennifer Driscoll D.O. Ordering Physician: Jennifer Driscoll D.O. Date of Service: 09/27/23 Procedure(s): CT abdomen pelvis w con Accession Number(s): [id number] cc: Jose Alfaro M.D. The [address] [address] Patient Name: VICTORINO SMYTH MRN: [id number] date: 1940 Sex: M Assigned Patient Location: CT Current Patient Location: CT Accession/Order Number: [id number] Exam Date: 09/27/2023 09:05 Report Date: 09/27/2023 [...] Signed By: 09/27/23 1607 DD/ 1605 TD/TT: Motor And Generator Assembler: VIK HealthcareRadiology Study observation (narrative)VIK HealthcareCT ABDOMEN PELVIS W CONOrdered By: Radiologist Radiology on 79-51-0478W[employer] Work Phone: ecg 12-LEADon 89-91-9329[place], [place] [address] Electrocardiograph Report Signed Patient: VICTORINO SMYTH MR#: [id number] : 1940 Acct:[id number] Age/Sex: 82 / M ADM Date: 07/29/23 Loc: MS 230-[address]: Jose Alfaro M.D. Ordering Physician: Tesha Dowell Date of Service: 07/29/23 Procedure(s): ECG 12 lead Accession Number(s): [id number] cc: The 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 Signed By: 07/31/23 0555 DD/ 1446 TD/TT: Motor And Generator Assembler:Nakita Alvarez, - 2023 The [place] [id number] Electrocardiograph Report Signed Patient: VICTORINO SMYTH MR#: [id number] : 1940 Acct:[id number] Age/Sex: 82 / M ADM Date: 07/29/23 Loc: MS 230-[address]: Jose Alfaro M.D. Ordering Physician: Tesha Dowell Date of Service: 07/29/23 Procedure(s): ECG 12 lead Accession Number(s): [id number] cc: The 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 Signed By: 07/31/23 0555 DD/ 1446 TD/TT: Motor And Generator Assembler: VIK HealthcareECG 12-LEADOrdered By: Radiologist Radiology on 98-48-1840[facility] Work Phone: ECG 12-LEADon 58-81-0656Qopeoagho Study observation (narrative)VIK HealthcareCalcium [Mass/volume] in Serum or PlasmaOrdered By: Ni Olivares on 59-97-5061Yuywjjt [Mass/Vol]8.8 mg/dLNormal8.6-10.3FSouthern Ohio Medical CenterComment on above:Performed By: #### URIC, CA, CREAT, BUN, PTH, LYTES #### [facility] [address] [place] [address] USACarbon dioxide, total [Moles/volume] in Serum or Plasma Ordered By: Ni Olivares on 24-73-2384BN2 [Moles/Vol]24.0 mmol/ZCzfmod33.0-31.0 [facility] Hospital - CincinnatiComment on above:Performed By: #### URIC, CA, CREAT, BUN, PTH, LYTES #### [facility] [address] [place] [address] USAChloride [Moles/volume] in Serum or PlasmaOrdered By: Ni Olivares on 04-67-5130Veozwjvw [Moles/Vol]107 mmol/QMdrmex62-308AggvtshctSelect Medical Specialty Hospital - CincinnatiComment on above:Performed By: #### URIC, CA, CREAT, BUN, PTH, LYTES #### [facility] [address] [place] [address] USACreatinineon 18-28-9670XLH/1.73 sq M.predicted MDRD (S/P/Bld) [Vol rate/Area]32.151 mL/min/{1.73_m2}NormalThe [facility] Physician GroupComment on above:Performed By: #### URIC, CA, CREAT, BUN, PTH, LYTES #### [facility] [address] [place] [id number] USACreatinine [Mass/volume] in Serum or PlasmaOrdered By: Ni Olivares on 41-22-9892Szhlulrfyy [Mass/Vol]2.05 mg/dLHigh0.70-1.30[facility] Hospital - CincinnatiComment on above:Performed By: #### URIC, CA, CREAT, BUN, PTH, LYTES #### [facility] [address] [place], [place] [address] USANo Panel InformationOrdered By: Ni Olivares on 07-02-2023 Estimated GFR (CKD-EPI)32.151 mL/MinSelect Medical Specialty Hospital - CincinnatiPharmacy Creatinine Clearance (ChemN/[facility]leness HospitalParathyrin.intact [Mass/volume] in Serum or PlasmaOrdered By: Ni Olivares on 07-02-2023 Parathyrin.intact [Mass/Vol]55.4 pg/qG34-92JsiqjekgoSelect Medical Specialty Hospital - Cincinnati Parathyroid Hormone [place]on 27-12-6122Ituneeppasz Hormone Ygetpt75.4 pg/mL Ohyifq23-91E[facility] Physician GroupComment on above:Result Comment: PERFORMED BY: [place] [address] PATHOLOGIST DATA BASE ADMINISTRATOR DIANDRA LACY M.D.Performed By: #### URIC, CA, CREAT, BUN, PTH, LYTES #### [facility] [address] [place], [place] [address] USAPotassium [Moles/volume] in Serum or PlasmaOrdered By: Ni Olivares on 38-93-1333Xppjhvedj [Moles/Vol]5.0 mmol/LNormal3.5-5.1FSouthern Ohio Medical CenterComment on above:Performed By: #### URIC, CA, CREAT, BUN, PTH, LYTES #### [facility] [address] [place] [address] USASerum or plasma anion gap determinationOrdered By: Ni Olivares on 90-22-9865Uumtz gap [Moles/Vol]12.0 mmol/LNormal6.0-15.0[facility] Hospital - CincinnatiComment on above:Performed By: #### URIC, CA, CREAT, BUN, PTH, LYTES #### [place] [address] USASodium [Moles/volume] in Serum or PlasmaOrdered By: Ni Olivares on 95-93-5858Rrcwwu [Moles/Vol]138 mmol/QJhxhjh211-579GujkwynhrSelect Medical Specialty Hospital - CincinnatiComment on above:Performed By: #### URIC, CA, CREAT, BUN, PTH, LYTES #### [place] [id number] USAUrate [Mass/volume] in Serum or PlasmaOrdered By: Ni Olivares on 26-68-7376Aflne [Mass/Vol]8.2 mg/dLHigh4.4-7.6FSouthern Ohio Medical CenterComment on above:Result Comment: PERFORMED BY: [place] [address] PATHOLOGIST DATA BASE ADMINISTRATOR DIANDRA LACY M.D.Performed By: #### URIC, CA, CREAT, BUN, PTH, LYTES #### [place] [id number] USAUrea nitrogen [Mass/volume] in Serum or PlasmaOrdered By: Ni Olivares on 11-43-5179Yzrl nitrogen [Mass/Vol]31 mg/dLHigh7-25Select [facility] Hospital - CincinnatiComment on above:Performed By: #### URIC, CA, CREAT, BUN, PTH, LYTES #### [place] [id number] USAPSA Total (Not a Screen)on 39-01-4909IFI Total (Not a Screen)4.730 ng/mLHigh0.000-4.000The [facility] Physician GroupComment on above: Result Comment: Serial tumor marker results determined by assays using different manufacturers or methods may not be comparable. [facility] ui software engineer and method: Gradalis DXI, CHEMILUMINESCENT IMMUNOASSAY. PERFORMED BY: [place] [address] PATHOLOGIST DATA BASE ADMINISTRATOR DIANDRA LACY M.D.Performed By: #### PSATOTAL #### [place] [address] USAProstate specific Ag [Mass/volume] in Serum or Plasma Ordered By: Ni Olivares on 94-22-5655Cjisoccu specific Ag [Mass/Vol]4.730 ng/mL 0.000-4.000Select [facility] Hospital - CincinnatiComment on above:Serial tumor marker results determined by assays using different manufacturers or methods may not be comparable.[facility] ui software engineer and method:OoolalaEL DXI, CHEMILUMINESCENT IMMUNOASSAY.US renal BIon 22-00-7187QA renal [facility] [place] [address] [place] [address] Ultrasound Report Signed Patient: Victorino Smyth MR#: [id number] : 1940 Acct:[id number] Age/Sex: 82 / M ADM Date: 06/16/23 Loc: Room: Type: [facility] Attending Dr: Ni Olivraes MD Ordering Provider: Ni Olivares MD Date [...] Rehan Fuentes M.D.06/16/2023 4:02 PM Dictation Location: [place] [address] Tech: Sue Chiu Transcribed By: [facility] 06/16/23 1602 Dictated By: Rehan Fuentes DO 06/16/23 1559 Signed By: 06/16/23 1602[facility] Physician GroupPSA, FREE AND TOTAL RATIOon 11-09-2022% Free PSA11.3 %NormalThe [address] [facility] CampusComment on above:Result Comment: The table below lists [...] population of men.Performed By: #### PSAFREE #### [facility] [address] [place] [address] Dr. Alicia Pennington specific Ag [Mass/Vol]4.6 ng/mLCritically high0.0-4.0The [facility]onton CampusComment on above:Result Comment: [employer] ECLIA methodology. . According to the [place] [employer], Serum PSA should decrease and [...] of malignant disease.Performed By: #### PSAFREE #### [facility] [address] [place] [address] Dr. Alicia Hernandez, Free0.52 ng/mLNormalN/AThe St. [facility] Iront[facility] CampusComment on above:Result Comment: Brenda ECLIA methodology.Performed By: #### PSAFREE #### [facility] [address] [place] [address] Dr. Alicia PatelINSULINon 21-87-9890Plmfipj62.5 uIU/mLNormal2.6-24.9The [facility]ont[facility] CampusComment on above:Performed By: #### TSH, LIPID, T4, FT3, CMP #### [facility] [address] [place] [address] Dr. Alicia Boswell AUTO DIFFon 69-50-5668AREX #0.0 103/ulNormal0.0-0.1The [facility] Ironton CampusComment on above:Performed By: #### CBC #### [facility] [address] [place] [address] Dr. Alicia PatelBasophils/100 WBC (Bld)0.4 %Normal0.2-2.0[facility] Comment on above:Performed By: #### CBC #### [facility] [address] [place] [address] Dr. Alicia Coats #0.2 103/ulNormal0.0-0.7The [facility]ont[facility] CampusComment on above: Performed By: #### CBC #### [facility] [address] [place] [address] Dr. Alicia Dunnosinophils/100 WBC (Bld)4.6 %Normal0.9-7.0[facility] Comment on above:Performed By: #### CBC #### [facility] [address] [place] [address] Dr. Alicia Dunnrythrocyte distribution width (RBC) [Ratio]13.2 %Xvdrnk06.0-15.0 [facility] Healthcare SystemComment on above:Performed By: #### CBC #### [facility] [address] [place] [address] Dr. Alicia PatelHematocrit (Bld) [Volume fraction]34.6 %Critically low42.0-54.[address] [facility] Ironton CampusComment on above:Performed By: #### CBC #### [facility] [address] [place] [address] Dr. Alicia PatelHemoglobin (Bld) [Mass/Vol]11.4 g/dLCritically low14.0-18.0The [facility] CampusComment on above:Performed By: #### CBC #### [facility] [address] [place] [address] Dr. Alicia Bell #0.03 10e3/ulNormal0.00-0.03The [facility] Iront[facility] CampusComment on above:Performed By: #### CBC #### [facility] [address] [place] [address] Dr. Alicia Bell %0.6 %Critically high0.0-0.5The [facility] Iront[facility] CampusComment on above:Performed By: #### CBC #### [facility] [address] [place] [address] Dr. Alicia Magallon #0.9 103/ulCritically low1.2-3.8The [facility] Comment on above:Performed By: #### CBC #### [facility] [address] [place] [address] Dr. Alicia Gonzaleshocytes/100 WBC (Bld)16.3 %Critically low20.5-60.0The [facility] CampusComment on above:Performed By: #### CBC #### [facility] [address] [place] [address] Dr. Alicia KincaidUAL DIFF REQNONormalThe St. [facility] Iront[facility] CampusComment on above: Performed By: #### CBC #### [facility] [address] [place] [address] Dr. Alicia Nixon (RBC) [Entitic mass]32.9 wcIxvyww36.9-34.0The [facility] CampusComment on above:Performed By: #### CBC #### [facility] [address] [place] [address] Dr. Alicia Nixon (RBC) [Mass/Vol]32.9 g/fYIzrefj76.9-35.2The [facility] CampusComment on above:Performed By: #### CBC #### [facility] [address] [place] [address] Dr. Alicia NixonV (RBC) [Entitic vol]99.7 fLCritically high80.0-94.0The [facility] CampusComment on above:Performed By: #### CBC #### [facility] [address] [place] [address] Dr. Alicia Merchant #0.6 103/ulNormal0.3-0.8The [facility] CampusComment on above:Performed By: #### CBC #### [facility] [address] [place] [address] Dr. Alicia Carpenterocytes/100 WBC (Bld)12.0 %Normal1.7-12.0The [facility] Comment on above:Performed By: #### CBC #### [facility] [address] [place] [address] Dr. Alicia Bright #3.5 103/ulNormal1.4-6.5The [facility] CampusComment on above:Performed By: #### CBC #### [facility] [address] [place] [address] Dr. Alicia Kapoorutrophils/100 WBC (Bld)66.1 %Xpvbws32.0-75.0The [facility] CampusComment on above:Performed By: #### CBC #### [facility] [address] [place] [address] Dr. Alicia Marks mean volume (Bld) [Entitic vol]10.1 fLNormal9.5-13.5The [facility] CampusComment on above:Performed By: #### CBC #### [facility] [address] [place] [address] Dr. Alicia PatelPLT168 103/ovZzobtv324-349Hkl [facility] CampusComment on above: Performed By: #### CBC #### [facility] [address] [place] [address] Dr. Alicia PatelRBC3.47 106/ulCritically low4.70-6.10The [facility] CampusComment on above:Performed By: #### CBC #### [facility] [address] [place] [address] Dr. Alicia PatelWBC5.2 103/ulNormal4.0-11.0The [facility] on above: Performed By: #### CBC #### [facility] [address] [place] [address] Dr. Alicia PatelFREE T3on 36-49-1328RKMU T32.78 pg/mlLNormal2.18-3.98The [facility] CampusCombeaumont hospital on above:Performed By: #### URTPCR #### [facility] [address] [place] [address] Dr. Alicia PatelGLYCOHEMOGLOBIN A1Con 69-20-9827GLY RECOMMENDATIONSEE BELOWNoAccess Hospital DaytonCombeaumont hospital on above:Result Comment: ADA RECOMMENDED LIMIT 4.0 - 6.0 ADA THERAPEUTIC TARGET < 7.0 ACTION SUGGESTED > 7.0Performed By: #### TSH, LIPID, T4, FT3, CMP #### [facility] [address] [place] [address] Dr. Alicia PatelGlucose [Mass/Vol]120 mg/dLNoSt. Mary's Medical Center, Ironton CampusCombeaumont hospital on above:Performed By: #### TSH, LIPID, T4, FT3, CMP #### [facility] [address] [place] [address] Dr. Alicia PatelHbA1c (Bld) [Mass fraction]5.8 %Normal4.5-6.2The [facility] on above:Performed By: #### TSH, LIPID, T4, FT3, CMP #### [facility] [address] [place] [address] Dr. Alicia PatelLIPID PROFILEon 50-44-5138NMAL-HDL RATIO NORMSEE [facility] NorthCombeaumont hospital on above:Result Comment: 3.3 - 4.4 LOW RISK 4.4 - 7.1 AVERAGE RISK 7.1 - 11.0 MODERATE RISK >11.0 HIGH RISKPerformed By: #### URTPCR #### [facility] [address] [place] [address] Dr. Alicia PatelCholesterol [Mass/Vol]107 mg/dLNormal<=200The [facility] Comment on above:Performed By: #### URTPCR #### [facility] [address] [place] [address] [address] Alicia PatelCholesterol in HDL [Mass/Vol]34 mg/dLCritically esn31-30GstAcmc Healthcare SystemComment on above:Performed By: #### URTPCR #### [facility] [address] [place] [address] [address] Alicia PatelCholesterol in LDL [Mass/Vol]58.8 mg/dLMercy Health Lorain HospitalComment on above:Performed By: #### URTPCR #### [facility] [address] [place] [address] Dr. Alicia Toro.total/Cholesterol in HDL [Mass ratio]3.1 {ratio} NormalAcmc Healthcare SystemComment on above:Performed By: #### URTPCR #### [facility] [address] [place] [address] Dr. Alicia Drew NORMAL> or = 60 mg/dl - LOW CARDIOVASCULAR RISK <40 mg/dl - HIGH CARDIOVASCULAR RISKMercy Health Lorain HospitalComment on above:Performed By: #### URTPCR #### [facility] [address] [place] [address] Dr. Alicia Do CALC NORMALSEE BELOWMercy Health Lorain HospitalComment on above:Result Comment: <100 mg/dl OPTIMAL 100 - 129 mg/dl NEAR OR ABOVE OPTIMAL 130 - 159 mg/dl BORDERLINE HIGH 160 - 189 mg/dl HIGH >190 mg/dl VERY HIGH Performed By: #### URTPCR #### [facility] [address] [place] [address] Dr. Alicia PatelTriglyceride [Mass/Vol]71 mg/dLNormal<=150[facility] Comment on above:Performed By: #### URTPCR #### [facility] [address] [place] [address] Dr. Alicia PatelVLDL CALC14.2 mg/dLNoSt. Mary's Medical Center, Ironton CampusComment on above: Performed By: #### URTPCR #### [facility] [address] [place] [address] Dr. Alicia Rene 14(COMP METB)on 73-52-4151Zllmcgj [Mass/Vol]3.4 g/dLNormal 3.4-5.0The [facility]ont[facility] CampusComment on above:Performed By: #### TSH, LIPID, T4, FT3, CMP #### [facility] [address] [place] [address] Dr. Alicia PatelAlbumin/Globulin [Mass ratio]0.9 {ratio}NormalThe St. [facility] Iront[facility] CampusComment on above:Performed By: #### TSH, LIPID, T4, FT3, CMP #### [facility] [address] [place] [address] Dr. Alicia Estrella [Catalytic activity/Vol]75 U/CRebzbr94-272Rtn [facility] CampusComment on above:Performed By: #### TSH, LIPID, T4, FT3, CMP #### [facility] [address] [place] [address] Dr. Alicia Mejai [Catalytic activity/Vol]31 U/AJswulo52-35Rar [facility]ont[facility] CampusComment on above:Performed By: #### TSH, LIPID, T4, FT3, CMP #### [facility] [address] [place] [address] Dr. Alicia Galvan gap [Moles/Vol]14.4 mmol/LNormalThe [facility] Comment on above:Performed By: #### TSH, LIPID, T4, FT3, CMP #### [facility] [address] [place] [address] Dr. Alicia Hernandez [Catalytic activity/Vol]23 U/YQqugbn98-07Pdm [facility] CampusComment on above:Performed By: #### TSH, LIPID, T4, FT3, CMP #### [facility] [address] [place] [address] Dr. Alicia Lopezirubin [Mass/Vol]0.5 mg/dLNormal0.2-1.0The [facility] Comment on above:Performed By: #### TSH, LIPID, T4, FT3, CMP #### [facility] [address] [place] [address] Dr. Alicia PatelCalcium [Mass/Vol]8.8 mg/dLNormal8.5-10.1The [facility] Comment on above:Performed By: #### TSH, LIPID, T4, FT3, CMP #### [facility] [address] [place] [address] Dr. Alicia PatelChloride [Moles/Vol]110 mmol/LCritically nstr17-906Xoj [facility] CampusComment on above:Performed By: #### TSH, LIPID, T4, FT3, CMP #### [facility] [address] [place] [address] Dr. Alicia PatelCO2 [Moles/Vol]24.2 mmol/HPgvefv89.0-32.0The [facility] Comment on above:Performed By: #### TSH, LIPID, T4, FT3, CMP #### [facility] [address] [place] [address] Dr. Alicia PatelCreatinine [Mass/Vol]2.41 mg/dLCritically high0.70-1.30The [facility] CampusComment on above:Performed By: #### TSH, LIPID, T4, FT3, CMP #### [facility] [address] [place] [address] Dr. Alicia DunnGFR-AF UJQBTOQX51 mL/min/1.07d7Vvmbspivzb low>=60The [facility] CampusComment on above:Performed By: #### TSH, LIPID, T4, FT3, CMP #### [facility] [address] [place] [address] Dr. Alicia DunnGFR-NON AF UOJUIWOP78 mL/min/1.00m9Ttxhqhhjlz low>=60The [facility] CampusComment on above:Performed By: #### TSH, LIPID, T4, FT3, CMP #### [facility] [address] [place] [address] Dr. Alicia PatelGlobulin (S) [Mass/Vol]3.6 g/dLNormalThe St[facility] CampusComment on above:Performed By: #### TSH, LIPID, T4, FT3, CMP #### [facility] [address] [place] [address] Dr. Alicia PatelGlucose [Mass/Vol]72 mg/dLCritically uyw32-503Fpp [facility] [place] CampusComment on above:Performed By: #### TSH, LIPID, T4, FT3, CMP #### [facility] [address] [place] [address] Dr. Alicia PatelPotassium [Moles/Vol]4.6 mmol/LNormal3.5-5.1The [facility] Comment on above:Performed By: #### TSH, LIPID, T4, FT3, CMP #### [facility] [address] [place] [address] Dr. Alicia PatelProtein [Mass/Vol]7.0 g/dLNormal6.4-8.2[facility] Comment on above:Performed By: #### TSH, LIPID, T4, FT3, CMP #### [facility] [address] [place] [address] Dr. Alicia PatelSodium [Moles/Vol]144 mmol/OFdicer607-197Wno [facility] Comment on above:Performed By: #### TSH, LIPID, T4, FT3, CMP #### [facility] [address] [place] [address] Dr. Alicia PatelUrea nitrogen [Mass/Vol]32.0 mg/dLCritically high7.0-18.0The [facility] CampusComment on above:Performed By: #### TSH, LIPID, T4, FT3, CMP #### [facility] [address] [place] [address] Dr. Alicia Nguyễn nitrogen/Creatinine [Mass ratio]13.3 mg/mgNormalThe St. [facility] CampusComment on above:Performed By: #### TSH, LIPID, T4, FT3, CMP #### [facility] [address] [place] [address] Dr. Alicia Solis4on [id number] [Mass/Vol]7.90 ug/dLNormal4.50-12.10The [facility] CampusComment on above:Performed By: #### TSH, LIPID, T4, FT3, CMP #### [facility] [address] [address] [address] Alicia Pinto [id number] uIU/mLCritically low0.358-3.740The [facility] CampusComment on above:Performed By: #### TSH, LIPID, T4, FT3, CMP #### [facility] [address] [address] [address] Alicia PatelURIC ACID SERUMon [id number] [Mass/Vol]7.3 mg/dLCritically high3.5-7.2The [facility] CampusComment on above:Performed By: #### TSH, LIPID, T4, FT3, CMP #### [facility] [address] [address] [address] Vargas ChangECHOCARDIO M/2D COMPLETEon [id number] M/2D COMPLETE Patient: VICTORINO SMYTH Exam Date: 10/26/2022 : 1940 Gender:M Ordering : IRIS CORONEL Admission #: [id number] Family : DR JOSE ALFARO . Order #: [id number] CLICK HERE TO VIEW EXAM ECHOCARDIOGRAM REPORT [...] by: Ksenia Glasgow M.D. on 10/28/2022 at 13:02[facility] HospitalXR KUB 1 VIEWon [id number] KUB 1 VIEWEXAMINATION: XR KUB 1 VIEW [...] Electronically authenticated by: TYLER MONSIVAIS Date: 2022-10-22 09:12[facility] HospitalUS KIDNEYSon [id number] KIDNEYSEXAMINATION: US KIDNEYS HISTORY: Kidney stone COMPARISON: [...] Electronically authenticated by: TESS FORD Date: 2022-10-18 07:04[facility] HospitalBNPon [id number] peptide B (Bld) [Mass/Vol]300.0 pg/mLNormal<=1,800.0[facility] SystemComment on above:Performed By: #### TSH, LIPID, T4, FT3, CMP #### [facility] [address] [place] [address] Dr. Alicia Boswell AUTO DIFFon [id number] #0.0 103/ulNormal0.0-0.1The [facility] CampusComment on above:Performed By: #### TSH, LIPID, T4, FT3, CMP #### [facility] [address] [place] [address] Dr. Alicia PatelBasophils/100 WBC (Bld)0.6 %Normal0.2-2.0The [facility] Comment on above:Performed By: #### TSH, LIPID, T4, FT3, CMP #### [facility] [address] [place] [address] Dr. Alicia Coats #0.2 103/ulNormal0.0-0.7The [facility] CampusComment on above: Performed By: #### TSH, LIPID, T4, FT3, CMP #### [facility] [address] [place] [address] Dr. Alicia Dunnosinophils/100 WBC (Bld)4.6 %Normal0.9-7.0The [facility] Comment on above:Performed By: #### TSH, LIPID, T4, FT3, CMP #### [facility] [address] [place] [address] Dr. Alicia Dunnrythrocyte distribution width (RBC) [Ratio]14.2 %Gekoqc85.0-15.[address] [facility] CampusComment on above:Performed By: #### TSH, LIPID, T4, FT3, CMP #### [facility] [address] [place] [address] Dr. Alicia PatelHematocrit (Bld) [Volume fraction]36.1 %Critically low42.0-54.[address] [facility] CampusComment on above:Performed By: #### TSH, LIPID, T4, FT3, CMP #### [facility] [address] [place] [address] Dr. Alicia PatelHemoglobin (Bld) [Mass/Vol]11.8 g/dLCritically low14.0-18.0The [facility] CampusComment on above:Performed By: #### TSH, LIPID, T4, FT3, CMP #### [facility] [address] [place] [address] Dr. Alicia Bell #0.03 10e3/ulNormal0.00-0.03The [facility] CampusComment on above:Performed By: #### TSH, LIPID, T4, FT3, CMP #### [facility] [address] [place] [address] Dr. Alicia Bell %0.6 %Critically high0.0-0.5The [facility] CampusComment on above:Performed By: #### TSH, LIPID, T4, FT3, CMP #### [facility] [address] [place] [address] Dr. Alicia Magallon #1.1 103/ulCritically low1.2-3.8The [facility] Comment on above:Performed By: #### TSH, LIPID, T4, FT3, CMP #### [facility] [address] [place] [address] Dr. Alicia Gonzaleshocytes/100 WBC (Bld)22.6 %Qljbhd24.5-60.0The [facility] CampusComment on above:Performed By: #### TSH, LIPID, T4, FT3, CMP #### [facility] [address] [place] [address] Dr. Alicia KincaidUAL DIFF REQNONormalThe St[facility] CampusComment on above: Performed By: #### TSH, LIPID, T4, FT3, CMP #### [facility] [address] [place] [address] Dr. Alicia Nixon (RBC) [Entitic mass]33.2 ynHhegdo08.9-34.0The [facility] CampusComment on above:Performed By: #### TSH, LIPID, T4, FT3, CMP #### [facility] [address] [place] [address] Dr. Alicia Nixon (RBC) [Mass/Vol]32.7 g/qOEkrbyv09.9-35.2The [facility] CampusComment on above:Performed By: #### TSH, LIPID, T4, FT3, CMP #### [facility] [address] [place] [address] Dr. Alicia Villanueva (RBC) [Entitic vol]101.7 fLCritically high80.0-94.0The [facility] CampusComment on above:Performed By: #### TSH, LIPID, T4, FT3, CMP #### [facility] [address] [place] [address] Dr. Alicia Merchant #0.7 103/ulNormal0.3-0.8The [facility] CampusComment on above:Performed By: #### TSH, LIPID, T4, FT3, CMP #### [facility] [address] [place] [address] Dr. Alicia Carpenterocytes/100 WBC (Bld)13.8 %Critically high1.7-12.0The [facility] CampusCombeaumont hospital on above:Performed By: #### TSH, LIPID, T4, FT3, CMP #### [facility] [address] [place] [address] Dr. Alicia Bright #2.9 103/ulNormal1.4-6.5The [facility] on above:Performed By: #### TSH, LIPID, T4, FT3, CMP #### [facility] [address] [place] [address] Dr. Alicia Kapoorutrophils/100 WBC (Bld)57.8 %Hwekky53.0-75.0The [facility] on above:Performed By: #### TSH, LIPID, T4, FT3, CMP #### [facility] [address] [place] [address] Dr. Alicia Marks mean volume (Bld) [Entitic vol]10.1 fLNormal9.5-13.5The [facility] CampusComment on above:Performed By: #### TSH, LIPID, T4, FT3, CMP #### [facility] [address] [place] [address] Dr. Alicia PatelPLT160 103/ngFbmvqn988-954Sgb [facility] CampusComment on above: Performed By: #### TSH, LIPID, T4, FT3, CMP #### [facility] [address] [place] [address] Dr. Alicia PatelRBC3.55 106/ulCritically low4.70-6.10The [facility] CampusComment on above:Performed By: #### TSH, LIPID, T4, FT3, CMP #### [facility] [address] [place] [address] Dr. Alicia PatelWBC5.0 103/ulNormal4.0-11.0The [facility] CampusComment on above: Performed By: #### TSH, LIPID, T4, FT3, CMP #### [facility] [address] [place] [address] Dr. Alicia PatelPROF CHEM 8 (BAS METB)on 05-82-8349Mppod gap [Moles/Vol]13.9 mmol/LNormalThe [facility] CampusComment on above:Performed By: #### TSH, LIPID, T4, FT3, CMP #### [facility] [address] [place] [address] Dr. Alicia PatelCalcium [Mass/Vol]8.3 mg/dLCritically low8.5-10.1The [facility] CampusComment on above:Performed By: #### TSH, LIPID, T4, FT3, CMP #### [facility] [address] [place] [address] Dr. Alicia PatelChloride [Moles/Vol]108 mmol/LCritically wqlr33-045Mec [facility] CampusComment on above:Performed By: #### TSH, LIPID, T4, FT3, CMP #### [facility] [address] [place] [address] Dr. Alicia PatelCO2 [Moles/Vol]23.5 mmol/WEamsrw18.0-32.0The [facility] Comment on above:Performed By: #### TSH, LIPID, T4, FT3, CMP #### [facility] [address] [place] [address] Dr. Alicia PatelCreatinine [Mass/Vol]2.41 mg/dLCritically high0.70-1.30The [facility] CampusComment on above:Performed By: #### TSH, LIPID, T4, FT3, CMP #### [facility] [address] [place] [address] Dr. Alicia DunnGFR-AF JQLXKKCY59 mL/min/1.84q2Dichelhwpz low>=60The [facility] CampusComment on above:Performed By: #### TSH, LIPID, T4, FT3, CMP #### [facility] [address] [place] [address] Dr. Alicia DunnGFR-NON AF HNHDLLHZ40 mL/min/1.96z6Ougoyidtxw low>=60The [facility] CampusComment on above:Performed By: #### TSH, LIPID, T4, FT3, CMP #### [facility] [address] [place] [address] Dr. Alicia PatelGlucose [Mass/Vol]74 mg/mNWqrtab17-866EibAcmc Healthcare System Comment on above:Performed By: #### TSH, LIPID, T4, FT3, CMP #### [facility] [address] [place] [address] Dr. Alicia PatelPotassium [Moles/Vol]4.4 mmol/LNormal3.5-5.1[facility] Comment on above:Performed By: #### TSH, LIPID, T4, FT3, CMP #### [facility] [address] [place] [address] Dr. Alicia PatelSodium [Moles/Vol]141 mmol/FCljuic572-422PalAcmc Healthcare System Comment on above:Performed By: #### TSH, LIPID, T4, FT3, CMP #### [facility] [address] [place] [address] Dr. Alicia PatelUrea nitrogen [Mass/Vol]36.0 mg/dLCritically high7.0-18.0The [facility] CampusComment on above:Performed By: #### TSH, LIPID, T4, FT3, CMP #### [facility] [address] [place] [address] Dr. Alicia PatelUrea nitrogen/Creatinine [Mass ratio]14.9 mg/mgNormalThe St[facility] CampusComment on above:Performed By: #### TSH, LIPID, T4, FT3, CMP #### [facility] [address] [place] [address] Dr. Alicia Le, HIGH SENSITIVITYon 40-18-8767MNPYOX7.6 pg/mLNormal 4.0-76.1The [facility] CampusComment on above:Result Comment: CUT-OFF POINTS HAVE BEEN ESTABLISHED BASED ON THE FOURTH UNIVERSAL DEFINITIONS OF MYOCARDIAL INFARCTION. THE UPPER REFERENCE LIMIT (URL) OF TROPONIN, DEFINED THE 99TH PERCENTILE OF cTnI DISTRIBUTION IN A REFERENCE POPULATION, HAS BEEN CONFIRMED THE DECISION THRESHOLD FOR IN DIAGNOSIS.Performed By: #### TSH, LIPID, T4, FT3, CMP #### [facility] [address] [place] [address] Dr. Alicia PatelCHEMISTRYOrdered By: Lab ROPUser on 22-47-4181Qtyiuxs [Mass/Vol] 101 mg/nFAdkr36 - 99 mg/dLMCBRIDE ORTHOP[facility] [place] POC SubsectionComment on above:Result Comment: Notified RN/MDPOC Device [id number] Interpretation CodeMCBRIDE ORTHOPEDIC [facility] [place] POC SubsectionPOC User [id number] Interpretation CodeMCBRIDE ORTH[facility] [place] POC SubsectionPOC UsernameFRASHER, CYNTHIAInvalid Interpretation CodeMCBRIDE ORTHOP[facility]IC [facility] [place] POC SubsectionPTH INTACT on 80-52-0694UYL, Szokzp11 pg/tTZcpemj30-58Lwo [facility] CampusComment on above:Performed By: #### TSH, LIPID, T4, FT3, CMP #### [facility] [address] [place] [address] Dr. Alicia PatelHEMOGRAM AND PLATELon 24-69-8645Udlezcqzya (Bld) [Volume fraction]32.9 %Critically low42.0-54.0The [facility] CampusComment on above: Performed By: #### TSH, LIPID, T4, FT3, CMP #### [facility] [address] [place] [address] Dr. Yilan ChangHemoglobin (Bld) [Mass/Vol]10.9 g/dLCritically low14.0-18.0The [facility] CampusComment on above:Performed By: #### TSH, LIPID, T4, FT3, CMP #### [facility] [address] [place] [address] Dr. Alicia Nixon (RBC) [Entitic mass]32.6 iyTcfnko93.9-34.0The [facility] CampusComment on above:Performed By: #### TSH, LIPID, T4, FT3, CMP #### [facility] [address] [place] [address] Dr. Alicia PatelWYCKOFF [facility] (RBC) [Mass/Vol]33.1 g/iMAkveim61.9-35.2The [facility] CampusComment on above:Performed By: #### TSH, LIPID, T4, FT3, CMP #### [facility] [address] [place] [address] Dr. Alicia NixonV (RBC) [Entitic vol]98.5 fLCritically high80.0-94.0The [facility] CampusComment on above:Performed By: #### TSH, LIPID, T4, FT3, CMP #### [facility] [address] [place] [address] Dr. Alicia PatelPLT145 103/ulCritically kgb782-365Qgy [facility] CampusComment on above:Performed By: #### TSH, LIPID, T4, FT3, CMP #### [facility] [address] [place] [address] Dr. Alicia PatelRBC3.34 106/ulCritically low4.70-6.10The [facility] CampusComment on above:Performed By: #### TSH, LIPID, T4, FT3, CMP #### [facility] [address] [place] [address] Dr. Alicia PatelWBC5.1 103/ulNormal4.0-11.0The [facility] CampusComment on above: Performed By: #### TSH, LIPID, T4, FT3, CMP #### [facility] [address] [place] [address] Dr. Alicia PatelMAGNESIUMon 91-40-0727Sykoucgsg [Mass/Vol]1.5 mg/dLCritically low 1.8-2.4The [facility] CampusComment on above:Performed By: #### TSH, LIPID, T4, FT3, CMP #### [facility] [address] [place] [address] Dr. Alicia PatelRENAL FUNCTION PANELon 97-40-1020Iwufcga [Mass/Vol]3.5 g/dLNormal 3.4-5.0The [facility] CampusComment on above:Performed By: #### URTPCR #### [facility] [address] [place] [address] Dr. Alicia PatelCalcium [Mass/Vol]8.4 mg/dLCritically low8.5-10.1The [facility] CampusComment on above:Performed By: #### URTPCR #### [facility] [address] [place] [address] Dr. Alicia PatelChloride [Moles/Vol]107 mmol/QHeluhb63-101Cay [facility] Comment on above:Performed By: #### URTPCR #### [facility] [address] [place] [address] Dr. Ailcia PatelCO2 [Moles/Vol]25.1 mmol/VRephcu32.0-32.0The [facility] Comment on above:Performed By: #### URTPCR #### [facility] [address] [place] [address] Dr. Alicia PatelCreatinine [Mass/Vol]1.96 mg/dLCritically high0.70-1.30The [facility] CampusComment on above:Performed By: #### URTPCR #### [facility] [address] [place] [address] Dr. Alicia Langley-AF JWGMBYHJ07 mL/min/1.45m6Adgehqxhsq low>=60The [facility] CampusComment on above:Performed By: #### URTPCR #### [facility] [address] [place] [address] Dr. Yilan ChangEGFR-NON AF TZWLBXAD97 mL/min/1.24q4Uaeyczfifc low>=60The [facility] CampusComment on above:Performed By: #### URTPCR #### [facility] [address] [address] [address] Alicia PatelGlucose [Mass/Vol]151 mg/dLCritically ezua96-062Vca [facility] CampusComment on above:Performed By: #### URTPCR #### [facility] [address] [address] [address] Alicia PatelPhosphate [Mass/Vol]3.5 mg/dLNormal2.6-4.7The [facility] Comment on above:Performed By: #### URTPCR #### [facility] [address] [place] [address] Dr. Alicia PatelPotassium [Moles/Vol]4.3 mmol/LNormal3.5-5.1[facility] Comment on above:Performed By: #### URTPCR #### [facility] [address] [place] [address] Dr. Alicia PatelSodium [Moles/Vol]142 mmol/ZOmiftw940-844DfbAcmc Healthcare System Comment on above:Performed By: #### URTPCR #### [facility] [address] [place] [address] Dr. Alicia PatelUrea nitrogen [Mass/Vol]23.0 mg/dLCritically high7.0-18.0The [facility] CampusComment on above:Performed By: #### URTPCR #### [facility] [address] [place] [address] Dr. Alicia Mathew RANDOM W/MICROSCOPICon 51-40-7209RVDJIDSHRYEOOQnccshvpRWPQ SEENThe St[facility] CampusComment on above:Performed By: #### TSH, LIPID, T4, FT3, CMP #### [facility] [address] [place] [address] Dr. Alicia PatelBilirubin Ql (U)NegativeNormalNEGATIVEThe [facility] Comment on above:Performed By: #### TSH, LIPID, T4, FT3, CMP #### [facility] [address] [address] [address] Alicia Pruett SEENNormalNONE SEENSelect Medical Specialty [facility] on above:Performed By: #### TSH, LIPID, T4, FT3, CMP #### [facility] [address] [address] [address] Alicia Brizuelaarity (U)CLEARNormalCLEARAcmc Healthcare SystemComment on above: Performed By: #### TSH, LIPID, T4, FT3, CMP #### [facility] [address] [address] [address] Alicai Perera (U)LT. YELLOWNormalYELLOWAcmc Healthcare SystemComment on above:Performed By: #### TSH, LIPID, T4, FT3, CMP #### [facility] [address] [address] [address] Alicia PatelCrystals LM Nom (Urine sed)NONE SEENNormalNONE SEENAcmc Healthcare SystemCombeaumont hospital on above:Performed By: #### TSH, LIPID, T4, FT3, CMP #### [facility] [address] [address] [address] Vargas ChangEpithelial cells LM Ql (Urine sed)RARENormalNONE SEEN /RAREAcmc Healthcare SystemCombeaumont hospital on above:Performed By: #### TSH, LIPID, T4, FT3, CMP #### [facility] [address] [address] [address] Alicia PatelGlucose Ql (U)500 mg/dlAbnormalNEGMartin Memorial Hospital Comment on above:Performed By: #### TSH, LIPID, T4, FT3, CMP #### [facility] [address] [address] [address] Alicia PatelHemoglobin Ql (U)LARGEAbnoSt. John of God Hospital Comment on above:Performed By: #### TSH, LIPID, T4, FT3, CMP #### [facility] [address] [address] [address] Alicia Namones Ql (U)NegativeNormalNEGATIVEThe Charito HospitalComment on above:Performed By: #### TSH, LIPID, T4, FT3, CMP #### [facility] [address] [place] [address] Dr. Alicia PatelLEUKOCYTESNegativeNormalNEGATIVEThe St[facility] CampusCombeaumont hospital on above:Performed By: #### TSH, LIPID, T4, FT3, CMP #### [facility] [address] [place] [address] Dr. Alicia RuggieroCOUSNONEssence SEENNormalNONE SEENThe St[facility] CampusComment on above:Performed By: #### TSH, LIPID, T4, FT3, CMP #### [facility] [address] [place] [address] Dr. Alicia Porter Ql (U)NegativeNormalNEGATIVEThe St[facility] CampusComment on above:Performed By: #### TSH, LIPID, T4, FT3, CMP #### [facility] [address] [place] [address] Dr. Alicia PatelpH (U)6.0 [pH]Normal5-9Medina Hospitalment on above: Performed By: #### TSH, LIPID, T4, FT3, CMP #### [facility] [address] [place] [address] Dr. Alicia PatelVdtpwBAX12-67Urdymusv7-4Gdf [facility] on above: Performed By: #### TSH, LIPID, T4, FT3, CMP #### [facility] [address] [place] [address] Dr. Alicia PatelSPEC GRAVITY1.359Babwef7.005-<=1.025The [facility] on above:Performed By: #### TSH, LIPID, T4, FT3, CMP #### [facility] [address] [place] [address] Dr. Alicia Mathew PJMUSOG478 mg/dlAbnormalNEGATIVE/ TRACEThe St[facility] Comment on above:Performed By: #### TSH, LIPID, T4, FT3, CMP #### [facility] [address] [place] [address] Dr. Yilan ChangUrobilinogen Qn (U)0.2 {Wil'U}/dLNormal0.2 - 1.0The [facility] CampusComment on above:Performed By: #### TSH, LIPID, T4, FT3, CMP #### [facility] [address] [place] [address] Dr. Alicia PatelWBC0-[address]Ab[address] [facility] CampusComment on above: Performed By: #### TSH, LIPID, T4, FT3, CMP #### [facility] [address] [place] [address] Dr. Alicia PatelURIC ACID SERUMon 03-74-7663Agggt [Mass/Vol]5.8 mg/dLNormal 3.5-7.2The [facility] CampusComment on above:Performed By: #### URTPCR #### [facility] [address] [place] [address] Dr. Alicia Friend T PROTEIN CREAT RATIOon 31-70-3636Vtnuhle (U) [Mass/Vol] 122.4 mg/dLCritically high<=12.0The [facility] [place] CampusComment on above:Performed By: #### URTPCR #### [facility] [place] [facility] [address] [place] [address] Dr. Alicia Nj PROT CREAT RAT1.38NoSt. Mary's [facility], [place] CampusComment on above: Performed By: #### URTPCR #### [facility] [place] [facility] [address] [place] [address] Dr. Alicia Friend CREAT88.74 mg/aHQkxugt89.00-300.00The [facility] Comment on above:Performed By: #### URTPCR #### [facility] [address] [place] [address] Dr. Alicia Upton D 25 OHon [id number] D 25-OH58.0 ng/mLNormalAcmc Healthcare SystemComment on above:Performed By: #### TSH, LIPID, T4, FT3, CMP #### [facility] [address] [place] [address] Dr. Alicia Eli RANGESSEE BELOWMercy Health Lorain HospitalComment on above: Result Comment: <20 ng/mL Vit D deficient 20 - <30 ng/mL Vit D insufficient 30 - 100 ng/mL Vit D sufficient >100 ng/mL Potential ToxicityPerformed By: #### TSH, LIPID, T4, FT3, CMP #### [facility] [address] [address] [address] Alicia Mathis KIDNEYSon [id number] KIDNEYSEXAMINATION: US KIDNEYS HISTORY: Kidney stone COMPARISON: [...] Electronically authenticated by: TYLER MONSIVAIS Date: 2022-09-01 09:33[facility] Lorain HospitalPSA, FREE AND TOTAL RATIOon 08-25-2022% Free PSA13.7 %[address] [facility] CampusComment on above:Result Comment: The table below lists [...] #### TSH, LIPID, T4, FT3, CMP #### [facility] [address] [place] [address] Dr. Alicia PatelProstate specific Ag [Mass/Vol]6.2 ng/mLCritically high0.0-4.0The [facility] CampusComment on above:Result Comment: Brenda ECLIA methodology. . According to the [employer], Serum PSA should decrease and [...] #### TSH, LIPID, T4, FT3, CMP #### [facility] [address] [place] [address] Dr. Alicia PatelPSA, Free0.85 ng/mLNormalN/AThe St. [facility] CampusComment on above:Result Comment: Brenda ECLIA methodology.Performed By: #### TSH, LIPID, T4, FT3, CMP #### [facility] [address] [place] [address] Dr. Alicia Ordonez BLD IMMUNO SCREENon [id number] BLOODNegativeNormal NEGATIVEThe St. [facility] CampusComment on above:Performed By: #### TSH, LIPID, T4, FT3, CMP #### [facility] [address] [place] [address] Dr. Alicia PatelCBC AUTO DIFFon [id number] #0.0 103/ulNormal0.0-0.1The [facility] CampusComment on above:Performed By: #### URTPCR #### [facility] [address] [place] [address] Dr. Alicia PatelBasophils/100 WBC (Bld)0.3 %Normal0.2-2.0The [facility] Comment on above:Performed By: #### URTPCR #### [facility] [address] [place] [address] Dr. Alicia Coats #0.2 103/ulNormal0.0-0.7The [facility] CampusComment on above: Performed By: #### URTPCR #### [facility] [address] [place] [address] Dr. Alicia Dunnosinophils/100 WBC (Bld)3.2 %Normal0.9-7.0[facility] Comment on above:Performed By: #### URTPCR #### [facility] [address] [place] [address] Dr. Alicia Dunnrythrocyte distribution width (RBC) [Ratio]12.9 %Kyoxvc06.0-15.0 [facility]c Healthcare SystemComment on above:Performed By: #### URTPCR #### [facility] [address] [place] [address] Dr. Alicia PatelHematocrit (Bld) [Volume fraction]35.4 %Critically low42.0-54.0 [facility] Healthcare SystemComment on above:Performed By: #### URTPCR #### [facility] [address] [place] [address] Dr. Alicia PatelHemoglobin (Bld) [Mass/Vol]11.7 g/dLCritically low14.0-18.0Acmc Healthcare SystemComment on above:Performed By: #### URTPCR #### [facility] [address] [place] [address] Dr. Alicia Bell #0.08 10e3/ulCritically high0.00-0.03The [facility] Comment on above:Performed By: #### URTPCR #### [facility] [address] [place] [address] Dr. Alicia Bell %1.2 %Critically high0.0-0.5The [facility] CampusComment on above:Performed By: #### URTPCR #### [facility] [address] [place] [address] Dr. Alicia Magallon #1.1 103/ulCritically low1.2-3.8The [facility] Comment on above:Performed By: #### URTPCR #### [facility] [address] [place] [address] Dr. Alicia Lebronmphocytes/100 WBC (Bld)16.6 %Critically low20.5-60.0The [facility] CampusComment on above:Performed By: #### URTPCR #### [facility] [address] [place] [address] Dr. Alicia KincaidUAL DIFF REQNONormalThe St. [facility] CampusComment on above: Performed By: #### URTPCR #### [facility] [address] [place] [address] Dr. Alicia Nixon (RBC) [Entitic mass]32.4 izTvjgly61.9-34.0The [facility] CampusComment on above:Performed By: #### URTPCR #### [facility] [address] [place] [address] Dr. Alicia Nixon (RBC) [Mass/Vol]33.1 g/rVKuadhi84.9-35.2The [facility] CampusComment on above:Performed By: #### URTPCR #### [facility] [address] [place] [address] Dr. Alicia Villanueva (RBC) [Entitic vol]98.1 fLCritically high80.0-94.0The [facility] CampusComment on above:Performed By: #### URTPCR #### [facility] [address] [place] [address] Dr. Alicia Merchant #0.6 103/ulNormal0.3-0.8The [facility] CampusComment on above:Performed By: #### URTPCR #### [facility] [address] [place] [address] Dr. Alicia Carpenterocytes/100 WBC (Bld)8.8 %Normal1.7-12.0The [facility] Comment on above:Performed By: #### URTPCR #### [facility] [address] [place] [address] Dr. Yilan ChangNEUT #4.8 103/ulNormal1.4-6.5The [facility] CampusComment on above:Performed By: #### URTPCR #### [facility] [address] [place] [address] Dr. Alicia Kapoorutrophils/100 WBC (Bld)69.9 %Dflfbm24.0-75.0The [facility] CampusComment on above:Performed By: #### URTPCR #### [facility] [address] [place] [address] Dr. Alicia PatelPlatelet mean volume (Bld) [Entitic vol]10.4 fLNormal9.5-13.5The [facility] CampusComment on above:Performed By: #### URTPCR #### [facility] [address] [place] [address] Dr. Alicia PatelPLT200 103/geBwqnsf493-917Bbj St[facility] CampusComment on above: Performed By: #### URTPCR #### [facility] [address] [place] [address] Dr. Alicia PatelRBC3.61 106/ulCritically low4.70-6.10The [facility] CampusComment on above:Performed By: #### URTPCR #### [facility] [address] [place] [address] Dr. Alicia PatelWBC6.8 103/ulNormal4.0-11.0The [facility] CampusComment on above: Performed By: #### URTPCR #### [facility] [address] [place] [address] Dr. Alicia PatelFREE T3on 20-99-6225KWDA T31.91 pg/mlLCritically low2.18-3.98The [facility] CampusCombeaumont hospital on above:Performed By: #### TSH, LIPID, T4, FT3, CMP #### [facility] [address] [place] [address] Dr. Alicia PatelGLYCOHEMOGLOBIN A1Con 41-55-7050USE RECOMMENDATIONSEE BELOWNormal The [facility] CampusComment on above:Result Comment: ADA RECOMMENDED LIMIT 4.0 - 6.0 ADA THERAPEUTIC TARGET < 7.0 ACTION SUGGESTED > 7.0Performed By: #### TSH, LIPID, T4, FT3, CMP #### [facility] [address] [place] [address] Dr. Alicia PatelGlucose [Mass/Vol]194 mg/dLMercy Health Lorain HospitalComment on above:Performed By: #### TSH, LIPID, T4, FT3, CMP #### [facility] [address] [place] [address] Dr. Alicia PatelHbA1c (Bld) [Mass fraction]8.4 %Critically high4.5-6.2Acmc Healthcare SystemComment on above:Performed By: #### TSH, LIPID, T4, FT3, CMP #### [facility] [address] [place] [address] Dr. Alicia PatelLIPID PROFILEon 16-29-3096VZXF-HDL RATIO NORMSEE BELOWMercy Health Lorain HospitalComment on above:Result Comment: 3.3 - 4.4 LOW RISK 4.4 - 7.1 AVERAGE RISK 7.1 - 11.0 MODERATE RISK >11.0 HIGH RISKPerformed By: #### TSH, LIPID, T4, FT3, CMP #### [facility] [address] [place] [address] Dr. Alicia Pooleesterol [Mass/Vol]120 mg/dLNormal<=200The [facility] Comment on above:Performed By: #### TSH, LIPID, T4, FT3, CMP #### [facility] [address] [place] [address] Dr. Alicia Pooleesterol in HDL [Mass/Vol]30 mg/dLCritically kxs71-59AzzAcmc Healthcare SystemComment on above:Performed By: #### TSH, LIPID, T4, FT3, CMP #### [facility] [address] [place] [address] Dr. Alicia Pooleesterol in LDL [Mass/Vol]59.8 mg/dLMercy Health Lorain HospitalComment on above:Performed By: #### TSH, LIPID, T4, FT3, CMP #### [facility] [address] [address] [address] Alicia PatelCholesterol.total/Cholesterol in HDL [Mass ratio]4.0 {ratio} NormalThe [facility] on above:Performed By: #### TSH, LIPID, T4, FT3, CMP #### [facility] [address] [place] [address] Dr. Alicia Drew NORMAL> or = 60 mg/dl - LOW CARDIOVASCULAR RISK <40 mg/dl - HIGH CARDIOVASCULAR RISKMercy Health Lorain HospitalCombeaumont hospital on above:Performed By: #### TSH, LIPID, T4, FT3, CMP #### [facility] [address] [place] [address] Dr. Alicia Do CALC NORMALSEE BELOWMercy Health Lorain HospitalComment on above:Result Comment: <100 mg/dl OPTIMAL 100 - 129 mg/dl NEAR OR ABOVE OPTIMAL 130 - 159 mg/dl BORDERLINE HIGH 160 - 189 mg/dl HIGH >190 mg/dl VERY HIGH Performed By: #### TSH, LIPID, T4, FT3, CMP #### [facility] [address] [place] [address] Dr. Alicia PatelTriglyceride [Mass/Vol]151 mg/dLCritically high<=150The [facility] on above:Performed By: #### TSH, LIPID, T4, FT3, CMP #### [facility] [address] [place] [address] Dr. Alicia SappLDL CALC30.2 mg/dLNoSt. Mary's Medical Center, [facility] CampusCombeaumont hospital on above: Performed By: #### TSH, LIPID, T4, FT3, CMP #### [facility] [address] [place] [address] Dr. Alicia PatelPROSmita 14(COMP METB)on 87-83-8010Vbkyzkz [Mass/Vol]3.3 g/dL Critically low3.4-5.0[facility] on above:Performed By: #### TSH, LIPID, T4, FT3, CMP #### [facility] [address] [place] [address] Dr. Alicia PatelAlbumin/Globulin [Mass ratio]0.9 {ratio}NormalThe St. [facility] CampusComment on above:Performed By: #### TSH, LIPID, T4, FT3, CMP #### [facility] [address] [address] [address] Alicia Estrella [Catalytic activity/Vol]79 U/CGuesxa14-351Lvl [facility] Centerment on above:Performed By: #### TSH, LIPID, T4, FT3, CMP #### [facility] [address] [address] [address] Alicia Mejia [Catalytic activity/Vol]61 U/EWlycct60-09Enf St[facility] CampusComment on above:Performed By: #### TSH, LIPID, T4, FT3, CMP #### [facility] [address] [place] [address] Dr. Alicia Slateron gap [Moles/Vol]12.6 mmol/LNormalThe [facility] Comment on above:Performed By: #### TSH, LIPID, T4, FT3, CMP #### [facility] [address] [place] [address] Dr. Alicia PatelAST [Catalytic activity/Vol]39 U/LCritically nyqf92-48Uqz [facility] CampusComment on above:Performed By: #### TSH, LIPID, T4, FT3, CMP #### [facility] [address] [place] [address] Dr. Alicia PatelBilirubin [Mass/Vol]0.7 mg/dLNormal0.2-1.0The [facility] Comment on above:Performed By: #### TSH, LIPID, T4, FT3, CMP #### [facility] [address] [place] [address] Dr. Alicia PatelCalcium [Mass/Vol]8.9 mg/dLNormal8.5-10.1The [facility] Comment on above:Performed By: #### TSH, LIPID, T4, FT3, CMP #### [facility] [address] [place] [address] Dr. Alicia PatelChloride [Moles/Vol]111 mmol/LCritically twqj54-378Afz [facility] CampusComment on above:Performed By: #### TSH, LIPID, T4, FT3, CMP #### [facility] [address] [place] [address] Dr. Alicia PatelCO2 [Moles/Vol]24.0 mmol/TZkepku81.0-32.0The [facility] Comment on above:Performed By: #### TSH, LIPID, T4, FT3, CMP #### [facility] [address] [place] [address] Dr. Alicia PatelCreatinine [Mass/Vol]1.80 mg/dLCritically high0.70-1.30The [facility] CampusComment on above:Performed By: #### TSH, LIPID, T4, FT3, CMP #### [facility] [address] [place] [address] Dr. Alicia DunnGFR-AF IDINTLVP53 mL/min/1.06c9Nqpewietat low>=60The [facility] CampusComment on above:Performed By: #### TSH, LIPID, T4, FT3, CMP #### [facility] [address] [place] [address] Dr. Alicia DunnGFR-NON AF QTFOFRZS36 mL/min/1.67y0Ejnagktixm low>=60The [facility] CampusComment on above:Performed By: #### TSH, LIPID, T4, FT3, CMP #### [facility] [address] [place] [address] Dr. Alicia PatelGlobulin (S) [Mass/Vol]3.5 g/dLNormalThe St[facility] CampusComment on above:Performed By: #### TSH, LIPID, T4, FT3, CMP #### [facility] [address] [place] [address] Dr. Alicia PatelGlucose [Mass/Vol]118 mg/dLCritically lohr71-335Jtn [facility] Centerment on above:Performed By: #### TSH, LIPID, T4, FT3, CMP #### [facility] [address] [place] [address] Dr. Alicia PatelPotassium [Moles/Vol]4.6 mmol/LNormal3.5-5.1The [facility] Comment on above:Performed By: #### TSH, LIPID, T4, FT3, CMP #### [facility] [address] [place] [address] Dr. Alicia PatelProtein [Mass/Vol]6.8 g/dLNormal6.4-8.2The [facility] Comment on above:Performed By: #### TSH, LIPID, T4, FT3, CMP #### [facility] [address] [place] [address] Dr. Alicia PatelSodium [Moles/Vol]143 mmol/OVkqkkd659-348Xjh [facility] Comment on above:Performed By: #### TSH, LIPID, T4, FT3, CMP #### [facility] [address] [place] [address] Dr. Alicia PatelUrea nitrogen [Mass/Vol]31.0 mg/dLCritically high7.0-18.0The [facility] CampusComment on above:Performed By: #### TSH, LIPID, T4, FT3, CMP #### [facility] [address] [place] [address] Dr. Alicia Nguyễn nitrogen/Creatinine [Mass ratio]17.2 mg/mgNormalThe St. [facility] CampusComment on above:Performed By: #### TSH, LIPID, T4, FT3, CMP #### [facility] [address] [place] [address] Dr. Alicia Mena 02-27-5649O5 [Mass/Vol]7.70 ug/dLNormal4.50-12.10The [facility] CampusComment on above:Performed By: #### TSH, LIPID, T4, FT3, CMP #### [facility] [address] [place] [address] Dr. Alicia Pinto 45-69-3175DTD6.138 uIU/mLNormal0.358-3.740The [facility] CampusComment on above:Performed By: #### TSH, LIPID, T4, FT3, CMP #### [facility] [address] [place] [address] Dr. Alicia SalgueroAL FUNCTION PANELon 40-62-0071Koerlhm [Mass/Vol]3.3 g/dL Critically low3.4-5.0The [facility] CampusComment on above:Performed By: #### URTPCR #### [facility] [address] [address] [address] Alicia PatelCalcium [Mass/Vol]8.3 mg/dLCritically low8.5-10.1The [facility] CampusComment on above:Performed By: #### URTPCR #### [facility] [address] [address] [address] Alicia PatelChloride [Moles/Vol]109 mmol/LCritically zpnc64-990Fgp [facility] CampusComment on above:Performed By: #### URTPCR #### [facility] [address] [place] [address] Dr. Alicia PatelCO2 [Moles/Vol]22.1 mmol/SPnwvrg10.0-32.0The [facility] Comment on above:Performed By: #### URTPCR #### [facility] [address] [address] [address] Alicia PatelCreatinine [Mass/Vol]2.14 mg/dLCritically high0.70-1.30The [facility] CampusComment on above:Performed By: #### URTPCR #### [facility] [address] [address] [address] Vargas ChangEGFR-AF GPYMNXAS28 mL/min/1.44v7Pvvmzkuzvz low>=60The [facility] CampusComment on above:Performed By: #### URTPCR #### [facility] [address] [address] [address] Alicia DunnGFR-NON AF BGLDFYRR82 mL/min/1.44u7Fffrkrgcnh low>=60The [facility] CampusComment on above:Performed By: #### URTPCR #### [facility] [address] [address] [address] Alicia PatelGlucose [Mass/Vol]102 mg/dVQzhnmc49-997Los [facility] Comment on above:Performed By: #### URTPCR #### [facility] [address] [address] [address] Alicia PatelPhosphate [Mass/Vol]3.1 mg/dLNormal2.6-4.7The [facility] Comment on above:Performed By: #### URTPCR #### [facility] [address] [address] [address] Alicia PatelPotassium [Moles/Vol]3.9 mmol/LNormal3.5-5.1[facility] Comment on above:Performed By: #### URTPCR #### [facility] [address] [address] [address] Alicia PatelSodium [Moles/Vol]141 mmol/RTdidlz552-689Yez [facility] Comment on above:Performed By: #### URTPCR #### [facility] [address] [address] [address] Alicia PatelUrea nitrogen [Mass/Vol]41.0 mg/dLCritically high7.0-18.0[facility] SystemComment on above:Performed By: #### URTPCR #### [facility] [address] [address] [address] Alicia PatelCreatinine and Glomerular filtration rate.predicted panel (S/P/Bld)Ordered By: Hiral Interiano on 71-19-1981Jqshaqesgg [Mass/Vol]3.46 mg/dL 0.64-1.27Select [facility] Hospital - CincinnatiComment on above:Delta: 6.60 on 08/14/22-0433Estimated glomerular filtration rate (GFR) non- Ordered By: Hiral Interiano on 57-11-1455YYS/1.73 sq M.predicted among non-blacks MDRD (S/P/Bld) [Vol rate/Area]17 mL/MinSelect Medical Specialty Hospital - CincinnatiGlucose Glucometer (BldC) [Mass/Vol]Ordered By: Hiral Interiano on 17-11-9274Wtvlzeb [Mass/Vol]135 mg/dLSelect Medical Specialty Hospital - CincinnatiComment on above:Random Glucose Reference Range is dependent on time and content of last meal. Glucose of more than 200 mg/dL in a nonstressed, ambulatory subject supports the diagnosis of Diabetes Mellitus.No Panel InformationOrdered By: Hiral Interiano on 96-73-8714Safrrsauk GFR ()21 mL/MinSelect Medical Specialty Hospital - CincinnatiComment on above:GFR estimated reference range: According to KDOQI guidelines, <60 ml/min/1.73m2 is sufficient todiagnose a patient with chronic kidney disease.Pharmacy Creatinine Clearance (Chem21.94[facility] Daytonerum or plasma anion gap determinationOrdered By: Hiral Interiano on 79-70-3983Vozrp gap [Moles/Vol]10.3 mmol/L6.0-15.0[facility] Hospital Daytonerum or plasma calcium measurement (mass/volume)Ordered By: Hiral Interiano on 46-06-9135Lljqgqm [Mass/Vol]7.7 mg/dL8.2-10.2FKettering Health – Soin Medical Centererum or plasma chloride measurement (moles/volume)Ordered By: Hiral Interiano on 11-98-1409Nyugbthz [Moles/Vol]112 mmol/E69-777HbpwytdcoKindred Hospital Daytonerum or plasma glucose measurement (mass/volume)Ordered By: Hiral Interiano on 16-25-9782Gvjnxts [Mass/Vol]140 mg/iI83-279LjgzddalkSelect Medical Specialty Hospital - CincinnatiComment on above:ADA recommended reference rangeRandom Glucose Reference Range is dependent on time and content of last meal. Glucose of more than 200 mg/dL in a nonstressed, ambulatory subject supports the diagnosisof Diabetes Mellitus.Serum or plasma potassium measurement (moles/volume)Ordered By: Hiral Interiano on 46-90-5911Ygtduprag [Moles/Vol]3.8 mmol/L3.5-5.1FKettering Health – Soin Medical Centererum or plasma sodium measurement (moles/volume)Ordered By: Hiral Interiano on 20-01-2889Ssiica [Moles/Vol]140 mmol/V690-389BnoeldrchKindred Hospital Daytonerum or plasma total carbon dioxide measurement (moles/volume)Ordered By: Hiral Interiano on 49-58-9839VQ5 [Moles/Vol]21.5 mmol/L 22.0-30.0[facility] Hospital Daytonerum or plasma urea nitrogen measurement (mass/volume)Ordered By: Hiral Interiano on 35-56-9896Hxji nitrogen [Mass/Vol]45 mg/dL9-23[facility] - CincinnatiBasophils Auto (Bld) [#/Vol]Ordered By: Hiral Interiano on 44-06-3006Qdjursajj (Bld) [#/Vol]0.0 10*3/uL 0.0-0.2FSouthern Ohio Medical CenterBasophils/100 WBC Auto (Bld)Ordered By: Hiral Interiano on 00-13-7532Clcddzmjr/100 WBC (Bld)0.2 %.[facility] - CincinnatiEosinophils Auto (Bld) [#/Vol]Ordered By: Hiral Interiano on 66-70-2510Ypluihtcifv (Bld) [#/Vol]0.1 10*3/uL0.0-0.45[facility] - CincinnatiEosinophils/100 WBC Auto (Bld)Ordered By: Hiral Interiano on 08-14-2022 Eosinophils/100 WBC (Bld)1.0 %.[facility] Hospital - CincinnatiErythrocyte distribution width Auto (RBC) [Ratio]Ordered By: Hiral Interiano on 08-14-2022 Erythrocyte distribution width (RBC) [Ratio]13.5 %12.0-14.8[facility] Hospital - CincinnatiHematocrit Auto (Bld) [Volume fraction]Ordered By: Hiral Interiano on 07-06-6286Ioifmlzmld (Bld) [Volume fraction]35.4 %38.8-50.0[facility] - CincinnatiHemoglobin [Mass/volume] in BloodOrdered By: Hiral Interiano on 75-01-5900Gkxfzlzobh (Bld) [Mass/Vol]12.0 g/dL13.0-17.0[facility] - CincinnatiLeukocytes [#/volume] corrected for nucleated erythrocytes in Blood by Automated counOrdered By: Hiral Interiano on 81-67-9265DOJ corrected for nucl RBC Auto (Bld) [#/Vol]7.4 10*3/uL4.1-10.5FSouthern [facility] Medical Center Lymphocytes Auto (Bld) [#/Vol]Ordered By: Hiral Interiano on 39-98-6106Ilzlmkiffay (Bld) [#/Vol]0.6 10*3/uL1.00-4.8[facility] Lymphocytes/100 WBC Auto (Bld)Ordered By: Hiral Interiano on 08-14-2022 Lymphocytes/100 WBC (Bld)7.8 %.[facility] CincinnatiMCH Auto (RBC) [Entitic mass]Ordered By: Hiral Interiano on 50-21-3952CEJ (RBC) [Entitic mass] 33.0 pg27.5-35.2FSouthern Ohio Medical CenterMCHC Auto (RBC) [Mass/Vol] Ordered By: Hiral Interiano on 45-77-1364PZNR (RBC) [Mass/Vol]33.9 g/dL32.5-35.6 [facility] CincinnatiMCV Auto (RBC) [Entitic vol]Ordered By: Hiral Interiano on 86-42-7147FCD (RBC) [Entitic vol]97.3 fL83.5-101[facility] CincinnatiMonocytes Auto (Bld) [#/Vol]Ordered By: Hiral Interiano on 83-75-0678Ziclnxvli (Bld) [#/Vol]0.8 10*3/uL0.0-0.8[facility] CincinnatiMonocytes/100 WBC Auto (Bld)Ordered By: Hiral Interiano on 08-14-2022 Monocytes/100 WBC (Bld)11.4 %.[facility] CincinnatiNeutrophils Auto (Bld) [#/Vol]Ordered By: Hiral Interiano on 55-56-7692Nrbbccvttng (Bld) [#/Vol]5.9 10*3/uL1.8-7.7FSouthern Ohio Medical CenterNeutrophils/100 WBC Auto (Bld) Ordered By: Hiral Interiano on 75-26-0263Idbecyashlh/100 WBC (Bld)79.6 %.[facility] CincinnatiNo Panel InformationOrdered By: Hiral Interiano on 38-90-2656Lluabqi Glucose CommentGlu2: cleaned meterSelect Medical Specialty Hospital - CincinnatiNucleated erythrocytes [Presence] in Blood by Automated countOrdered By: Hiral Interiano on 57-45-1371Xipthlkhb RBC Auto Ql (Bld)0.1 /100{WBC}0-0.5 [facility] CincinnatiPlatelet mean volume Auto (Bld) [Entitic vol] Ordered By: Hiral Interiano on 71-01-2154Meeixova mean volume (Bld) [Entitic vol] 8.4 fL6.6-10.1FSouthern Ohio Medical CenterPlatelets Auto (Bld) [#/Vol] Ordered By: Hiral Interiano on 03-30-5475Icnavaapu (Bld) [#/Vol]121 10*3/nD072-688 [facility] CincinnatiRBC Auto (Bld) [#/Vol]Ordered By: Hiral Interiano on 41-09-0727CND (Bld) [#/Vol]3.64 10*6/uL3.90-5.60[facility] CincinnatiWBC Auto (Bld) [#/Vol]Ordered By: Hiral Interiano on 31-77-9690JPD (Bld) [#/Vol]7.4 10*3/uL4.1-10.5FSouthern Ohio Medical CenterBody fluid albumin measurement (mass/volume)Ordered By: Alicia León on 53-92-2953Difklli (Body fld) [Mass/Vol]3.0 g/dL3.2-5.5FSouthern Ohio Medical CenterGlucose mean value [Mass/volume] in Blood Estimated from glycated hemoglobinOrdered By: Hiral Interiano on 79-12-9372Dphiprb glucose Estimated from glycated hemoglobin (Bld) [Mass/Vol]212 mg/dLSelect Medical Specialty Hospital - CincinnatiHemoglobin A1c percentage Ordered By: Hiral Interiano on 29-79-5889BbZ1y (Bld) [Mass fraction]9.0 %4.3-5.6 [facility] - CincinnatiComment on above:Increased risk for diabetes: 5.7 - 6.4diabetes: >6.4glycemic control for adults with diabetes: <7.0 Anisocytosis LM Ql (Bld)Ordered By: Hiral Interiano on 68-21-4353Nnnhcednyghj Ql (Bld)[facility] CenterBand form neutrophils/100 WBC Manual cnt (Bld)Ordered By: Hiral Interiano on 16-63-2541Byit form neutrophils/100 WBC (Bld)1 %0-5FSouthern Ohio Medical CenterBeta-hydroxybutyric acid measurement Ordered By: Alicia León on 99-38-3743Bdkf hydroxybutyrate [Mass/Vol]2.40 mmol/L 0.05-0.27[facility] - CincinnatiBurr cells [Presence] in Blood by Light microscopyOrdered By: Hiral Interiano on 63-24-3897Zego cells LM Ql (Bld) [facility] Medical CenterCARDIAC GUIDO 3-6on 44-28-4954XH [Catalytic activity/Vol]162 U/CEeuweq24-066Eau [facility]onton CampusComment on above:Performed By: #### TSH, LIPID, T4, FT3, CMP #### [facility] [address] [place] [address] Dr. Alicia Kaur.MB [Mass/Vol]5.52 ng/mLCritically high<=3.60[facility] on above:Performed By: #### TSH, LIPID, T4, FT3, CMP #### [facility] [address] [place] [address] Dr. Alicia CaseyTROP19.7 pg/mLNormal4.0-76.1[facility] on above:Result Comment: CUT-OFF POINTS HAVE BEEN ESTABLISHED BASED ON THE FOURTH UNIVERSAL DEFINITIONS OF MYOCARDIAL INFARCTION. THE UPPER REFERENCE LIMIT (URL) OF TROPONIN, DEFINED THE 99TH PERCENTILE OF cTnI DISTRIBUTION IN A REFERENCE POPULATION, HAS BEEN CONFIRMED THE DECISION THRESHOLD FOR IN DIAGNOSIS.Performed By: #### TSH, LIPID, T4, FT3, CMP #### [facility] [address] [place] [address] Dr. Alicia Kaur [Catalytic activity/Vol]150 U/UDarcwi10-951Lwz [facility] Medical Centerment on above:Performed By: #### TSH, LIPID, T4, FT3, CMP #### [facility] [address] [place] [address] Dr. Alicia Kaur.MB [Mass/Vol]4.99 ng/mLCritically high<=3.60[facility] on above:Performed By: #### TSH, LIPID, T4, FT3, CMP #### [facility] [address] [place] [address] Dr. Alicia Israel16.9 pg/mLNormal4.0-76.1[facility] on above:Result Comment: CUT-OFF POINTS HAVE BEEN ESTABLISHED BASED ON THE FOURTH UNIVERSAL DEFINITIONS OF MYOCARDIAL INFARCTION. THE UPPER REFERENCE LIMIT (URL) OF TROPONIN, DEFINED THE 99TH PERCENTILE OF cTnI DISTRIBUTION IN A REFERENCE POPULATION, HAS BEEN CONFIRMED THE DECISION THRESHOLD FOR IN DIAGNOSIS.Performed By: #### TSH, LIPID, T4, FT3, CMP #### [facility] [address] [place] [address] Dr. Alicia Tesfaye GUIDO ADMITon 93-72-0692LD [Catalytic activity/Vol]128 U/L Blkvue39-760Acc [facility] on above:Performed By: #### TSH, LIPID, T4, FT3, CMP #### [facility] [address] [place] [address] Dr. Alicia Kaur.MB [Mass/Vol]4.95 ng/mLCritically high<=3.60[facility] on above:Performed By: #### TSH, LIPID, T4, FT3, CMP #### [facility] [address] [place] [address] Dr. Alicia Israel18.0 pg/mLNormal4.0-76.1[facility] on above:Result Comment: CUT-OFF POINTS HAVE BEEN ESTABLISHED BASED ON THE FOURTH UNIVERSAL DEFINITIONS OF MYOCARDIAL INFARCTION. THE UPPER REFERENCE LIMIT (URL) OF TROPONIN, DEFINED THE 99TH PERCENTILE OF cTnI DISTRIBUTION IN A REFERENCE POPULATION, HAS BEEN CONFIRMED THE DECISION THRESHOLD FOR IN DIAGNOSIS.Performed By: #### TSH, LIPID, T4, FT3, CMP #### [facility] [address] [place] [address] Dr. Alicia StaleyO188 ng/mLCritically olfr22-84Lkd St[facility] CampusComment on above:Performed By: #### TSH, LIPID, T4, FT3, CMP #### [facility] [address] [place] [address] Dr. Alicia Boswell AUTO DIFFon 01-54-7021RKVU #0.0 103/ulNormal0.0-0.1The [facility] CampusComment on above:Performed By: #### TSH, LIPID, T4, FT3, CMP #### [facility] [address] [place] [address] Dr. Alicia PatelBasophils/100 WBC (Bld)0.3 %Normal0.2-2.0The [facility] Comment on above:Performed By: #### TSH, LIPID, T4, FT3, CMP #### [facility] [address] [place] [address] Dr. Alicia Coats #0.2 103/ulNormal0.0-0.7The [facility] CampusComment on above: Performed By: #### TSH, LIPID, T4, FT3, CMP #### [facility] [address] [place] [address] Dr. Alicia Dunnosinophils/100 WBC (Bld)1.8 %Normal0.9-7.0The [facility] Comment on above:Performed By: #### TSH, LIPID, T4, FT3, CMP #### [facility] [address] [place] [address] Dr. Alicia Dunnrythrocyte distribution width (RBC) [Ratio]13.2 %Vbiryc25.0-15.[address] [facility] CampusComment on above:Performed By: #### TSH, LIPID, T4, FT3, CMP #### [facility] [address] [place] [address] Dr. Alicia PatelHematocrit (Bld) [Volume fraction]36.0 %Critically low42.0-54.[address] [facility] CampusComment on above:Performed By: #### TSH, LIPID, T4, FT3, CMP #### [facility] [address] [place], [place] [id number] Dr. Alicia PatelHemoglobin (Bld) [Mass/Vol]12.0 g/dLCritically low14.0-18.0The [facility] CampusComment on above:Performed By: #### TSH, LIPID, T4, FT3, CMP #### [facility] [address] [place] [address] Dr. Alicia Bell #0.34 10e3/ulCritically high0.00-0.03The [facility] Comment on above:Performed By: #### TSH, LIPID, T4, FT3, CMP #### [facility] [address] [place] [address] Dr. Alicia Bell %3.8 %Critically high0.0-0.5The [facility] CampusComment on above:Performed By: #### TSH, LIPID, T4, FT3, CMP #### [facility] [address] [place] [address] Dr. Alicia Magallon #0.5 103/ulCritically low1.2-3.8The [facility] Comment on above:Performed By: #### TSH, LIPID, T4, FT3, CMP #### [facility] [address] [place] [address] Dr. Alicia Gonzaleshocytes/100 WBC (Bld)5.9 %Critically low20.5-60.0The [facility] CampusComment on above:Performed By: #### TSH, LIPID, T4, FT3, CMP #### [facility] [address] [place] [address] Dr. Alicia KincaidUAL DIFF REQNONormalThe St. [facility] CampusComment on above: Performed By: #### TSH, LIPID, T4, FT3, CMP #### [facility] [address] [place] [address] Dr. Alicia Madrigal (RBC) [Entitic mass]32.3 lkOeydlx38.9-34.0The [facility] CampusComment on above:Performed By: #### TSH, LIPID, T4, FT3, CMP #### [facility] [address] [place] [address] Dr. Alicia Nixon (RBC) [Mass/Vol]33.3 g/yNPbdmcg33.9-35.2The [facility] CampusComment on above:Performed By: #### TSH, LIPID, T4, FT3, CMP #### [facility] [address] [place] [address] Dr. Alicia Nixon (RBC) [Entitic vol]97.0 fLCritically high80.0-94.0The [facility] CampusComment on above:Performed By: #### TSH, LIPID, T4, FT3, CMP #### [facility] [address] [place] [address] Dr. Alicia Merchant #0.5 103/ulNormal0.3-0.8The [facility] CampusComment on above:Performed By: #### TSH, LIPID, T4, FT3, CMP #### [facility] [address] [place] [address] Dr. Alicia Carpenterocytes/100 WBC (Bld)5.5 %Normal1.7-12.0The [facility] Comment on above:Performed By: #### TSH, LIPID, T4, FT3, CMP #### [facility] [address] [place] [address] Dr. Alicia Bright #7.5 103/ulCritically high1.4-6.5The [facility] Comment on above:Performed By: #### TSH, LIPID, T4, FT3, CMP #### [facility] [address] [place] [address] Dr. Alicia Kapoorutrophils/100 WBC (Bld)82.7 %Critically high43.0-75.0The [facility] CampusComment on above:Performed By: #### TSH, LIPID, T4, FT3, CMP #### [facility] [address] [place] [address] Dr. Alicia Marks mean volume (Bld) [Entitic vol]10.2 fLNormal9.5-13.5The [facility] CampusComment on above:Performed By: #### TSH, LIPID, T4, FT3, CMP #### [facility] [address] [address] [address] Alicia PatelPLT191 103/qcMvduzl186-136Uzy [facility] CampusComment on above: Performed By: #### TSH, LIPID, T4, FT3, CMP #### [facility] [address] [place] [address] Dr. Alicia PatelRBC3.71 106/ulCritically low4.70-6.10The [facility] CampusComment on above:Performed By: #### TSH, LIPID, T4, FT3, CMP #### [facility] [address] [place] [address] Dr. Alicia PatelWBC9.0 103/ulNormal4.0-11.0The [facility] CampusComment on above: Performed By: #### TSH, LIPID, T4, FT3, CMP #### [facility] [address] [place] [address] Dr. Alicia PatelCT ABD/PELVIS WO CONon 08-97-0465VI ABD/PELVIS WO CONEXAMINATION: CT ABD/PELVIS WO CON, [...] Electronically authenticated by: ILA GALLEGO Date: 2022-08-11 08:38NormCoshocton Regional Medical CenterCovid-19 PCR (CVDTB)on 94-40-7216GQJF-CoV-2 (COVID-19) RNA SAVANNAH+probe Ql (Unsp spec)Not detectedNormalNOT DETECTEDAcmc Healthcare System Comment on above:Result Comment: When diagnostic testing [...] for this test is supported by the Horticultural Technical Officer of Health and Human Service's declaration that [...] #### TSH, LIPID, T4, FT3, CMP #### [facility] [address] [place] [address] Dr. Alicia Lucero URINE PROFILEon 23-50-4148Fqzgzhwin Ql (U)NegativeNormal NEGATIVESelect Medical [facility]ty [facility] on above:Performed By: #### TSH, LIPID, T4, FT3, CMP #### [facility] [address] [place] [address] Dr. Alicia Wang (U)CLEARNormalCLEARSelect Medical Specialty Hospital - [facility] South on above: Performed By: #### TSH, LIPID, T4, FT3, CMP #### [facility] [address] [place] [address] Dr. Alicia Perera (U)LT. YELLOWNormalYELLOWSelect Medical Specialty [facility] on above:Performed By: #### TSH, LIPID, T4, FT3, CMP #### [facility] [address] [address] [address] Alicia Santo micrscopic examination will be performed if indicated. NormalMedina Hospitalment on above:Performed By: #### TSH, LIPID, T4, FT3, CMP #### [facility] [address] [address] [address] Alicia PatelGlucose Ql (U)NegativeNormalNEGATIVEAcmc Healthcare SystemComment on above:Performed By: #### TSH, LIPID, T4, FT3, CMP #### [facility] [address] [address] [address] Alicia PatelHemoglobin Ql (U)SMALLAbnormalNEGATIVELutheran Hospital on above:Performed By: #### TSH, LIPID, T4, FT3, CMP #### [facility] [address] [address] [address] Alicia PatelKetones Ql (U)NegativeNormalNEGATIVEAcmc Healthcare SystemComment on above:Performed By: #### TSH, LIPID, T4, FT3, CMP #### [facility] [address] [address] [address] Alicia PatelLEUKOCYTESNegativeNormalNEGATIVESelect Medical Specialty [facility] on above:Performed By: #### TSH, LIPID, T4, FT3, CMP #### [facility] [address] [address] [address] Alicia PatelNitrite Ql (U)NegativeNormalNEGATIVEAcmc Healthcare SystemComment on above:Performed By: #### TSH, LIPID, T4, FT3, CMP #### [facility] [address] [address] [address] Alicia PatelpH (U)6.0 [pH]Normal5-9Acmc Healthcare SystemCombeaumont hospital on above: Performed By: #### TSH, LIPID, T4, FT3, CMP #### [facility] [address] [address] [address] Alicia PatelProtein (U) [Mass/Vol]100 mg/dLAbnormalNEGATIVE/ TRACEThe St. [facility] CampusComment on above:Performed By: #### TSH, LIPID, T4, FT3, CMP #### [facility] [address] [place] [address] Dr. Alicia PatelSPEC GRAVITY1.088Xnalrx0.005-<=1.025The [facility] CampusComment on above:Performed By: #### TSH, LIPID, T4, FT3, CMP #### [facility] [address] [address] [address] Alicia Nj MICRO INDINDICATEDMercy Health Lorain HospitalComment on above: Performed By: #### TSH, LIPID, T4, FT3, CMP #### [facility] [address] [place] [address] Dr. Alicia Gilmangen Qn (U)0.2 {Wil'U}/dLNormal0.2 - 1.0The [facility] CampusComment on above:Performed By: #### TSH, LIPID, T4, FT3, CMP #### [facility] [address] [place] [address] Dr. Alicia Carroll B virus surface Ag [Presence] in Serum or Plasma by ImmunoassayOrdered By: Alicia León on 76-64-2464OQY surface Ag IA QlNegative NegativeSelect Medical Specialty Hospital - CincinnatiHemiddlesboro arh hospitaltis C virus IgG Ab [Presence] in Serum or Plasma by ImmunoassayOrdered By: Alicia León on 11-41-5118YHN IgG IA Ql Non-ReactiveNon ReactiveSelect Medical Specialty Hospital - CincinnatiHemiddlesboro arh hospitaltis C virus RNA [Units/volume] (viral load) in Serum or Plasma by SAVANNAH with probOrdered By: Alicia León on 04-05-9035ZQF RNA SAVANNAH+probe QnN/AFSouthern [facility] Center Hepatitis C virus RNA [log units/volume] (viral load) in Serum or Plasma by SAVANNAH withOrdered By: Alicia León on 85-85-3287IRB RNA SAVANNAH+probe [Log units/Vol]N/A [facility] CincinnatiLaboratory - CoagulationOrdered By: Hiral Interiano on 37-08-4295SA Coag (PPP) [Time]12.2 s9.0-12.9[facility] - CincinnatiLymphocytes/100 WBC Manual cnt (Bld)Ordered By: Hiral Interiano on 55-63-4454Bxqlqkjbfsw/100 WBC (Bld)5 %18-42[facility] Microcytes LM Ql (Bld)Ordered By: Hiral Interiano on 32-03-5908Rghbnpnzhl Ql (Bld) SlightSelect Medical Specialty Hospital - CincinnatiMonocytes/100 WBC Manual cnt (Bld)Ordered By: Hiral Interiano on 65-17-5862Sntvdnhuc/100 WBC (Bld)1 %2-11[facility] CincinnatiNo Panel InformationOrdered By: Alicia León on 08-11-2022 Hepatitis A IgM AntibodyNegativeNegativeSelect Medical Specialty Hospital [facility] Hepatitis B Core IgM AntibodyNegativeNegativeSelect Medical Specialty [facility] Hepatitis C InterpretationSee comment.[facility] - CincinnatiComment on above:Not infected with HCV unless early or acute infection issuspected (which may be delayed in an immunocompromisedindividual), or other evidence exists to indicate HCVinfection.Performed at: [facility] [place] [id number] Director: Lee Bob PhD, Phone: [phone] Hepatitis C RNA QuantitativeN/[facility] HospitalPOINT OF CARE GLUCOSEon 50-41-7866Xzabaps [Mass/Vol]132 mg/dLCritically jjvm14-529PacAcmc Healthcare SystemComment on above:Performed By: #### TSH, LIPID, T4, FT3, CMP #### [facility] [address] [address] [address] Alicia PatelGlucose [Mass/Vol]117 mg/dLCritically dxxe28-356GthAcmc Healthcare SystemComment on above:Performed By: #### TSH, LIPID, T4, FT3, CMP #### [facility] [address] [address] [address] Alicia PatelGlucose [Mass/Vol]95 mg/zZYlztvw89-961SppAcmc Healthcare System Comment on above:Performed By: #### POCGLUC #### [facility] [address] [address] [address] Alicia HurdF CHEM 8 (BAS METB)on 60-44-6736Zrfro gap [Moles/Vol]29.5 mmol/LNormalThe St. [facility] CampusComment on above:Performed By: #### TSH, LIPID, T4, FT3, CMP #### [facility] [address] [place] [address] Dr. Alicia PatelCalcium [Mass/Vol]7.7 mg/dLCritically low8.5-10.1The [facility] CampusComment on above:Performed By: #### TSH, LIPID, T4, FT3, CMP #### [facility] [address] [place] [address] Dr. Alicia PatelChloride [Moles/Vol]102 mmol/XZtjvzt42-297Vuh [facility] Comment on above:Performed By: #### TSH, LIPID, T4, FT3, CMP #### [facility] [address] [place] [address] Dr. Alicia PatelCO2 [Moles/Vol]13.5 mmol/LCritically low21.0-32.0The [facility] CampusComment on above:Performed By: #### TSH, LIPID, T4, FT3, CMP #### [facility] [address] [place] [address] Dr. Alicia PatelCreatinine [Mass/Vol]17.89 mg/dLCritically high0.70-1.30The [facility] CampusComment on above:Performed By: #### TSH, LIPID, T4, FT3, CMP #### [facility] [address] [place] [address] Dr. Alicia DunnGFR-AF AMERICAN3 mL/min/1.99b4Kkqlkcswbl low>=60The [facility] CampusComment on above:Performed By: #### TSH, LIPID, T4, FT3, CMP #### [facility] [address] [place] [address] Dr. Alicia DunnGFR-NON AF AMERICAN3 mL/min/1.11c6Wrxesushit low>=60The [facility] CampusComment on above:Performed By: #### TSH, LIPID, T4, FT3, CMP #### [facility] [address] [address] [address] Alicia PatelGlucose [Mass/Vol]105 mg/iTYolsfp48-524ZizAcmc Healthcare System Comment on above:Performed By: #### TSH, LIPID, T4, FT3, CMP #### [facility] [address] [address] [address] Alicia PatelPotassium [Moles/Vol]7.0 mmol/LCritically high3.5-5.1The [facility] CampusComment on above:Performed By: #### TSH, LIPID, T4, FT3, CMP #### [facility] [address] [address] [address] Alicia PatelSodium [Moles/Vol]138 mmol/MKevgyo035-228Kia [facility] Comment on above:Performed By: #### TSH, LIPID, T4, FT3, CMP #### [facility] [address] [address] [address] Alicia PatelUrea nitrogen [Mass/Vol]156.0 mg/dLCritically high7.0-18.0The [facility] CampusComment on above:Performed By: #### TSH, LIPID, T4, FT3, CMP #### [facility] [address] [address] [address] Alicia Nguyễn nitrogen/Creatinine [Mass ratio]8.7 mg/mgNormalThe St. [facility] CampusComment on above:Performed By: #### TSH, LIPID, T4, FT3, CMP #### [facility] [address] [place] [address] Dr. Alicia PatelPlatelet adequacy [Presence] in Blood by Light microscopyOrdered By: Hiral Interiano on 17-78-9620Eidbdpdfq LM Ql (Bld)[facility] HospitalPlatelet morphology finding [Identifier] in BloodOrdered By: Hiral Interiano on 20-46-6863Kkylvpla morphology finding Nom (Bld)[facility] WestPlatelet poor plasma international normalized ratio (INR) by coagulation assay (relatOrdered By: Hiral Interiano on 08-11-2022 INR Coag (PPP) [Relative time]1.0 {INR}[facility] CincinnatiComment on above:INR Therapeutic Range A) Pre- and [...] by Light microscopyOrdered By: Hiral Interiano on 49-20-4943Xmqmpflmlgdpwe LM Ql (Bld)SlightSelect Medical Specialty Hospital - CincinnatiRBC morphologyOrdered By: Hiral Interiano on 49-74-4943CKG morphology finding Nom (Bld)N/AFKettering Health – Soin Medical Centeregmented neutrophils/100 WBC Manual cnt (Bld)Ordered By: Hiral Interiano on 08-11-2022 Segmented neutrophils/100 WBC (Bld)94 %50-70[facility] Troponin I.cardiac [Mass/volume] in Serum or Plasma by High sensitivity method Ordered By: Hiral Interiano on 18-76-9467Cpnjyjia I.cardiac High sensitivity method [Mass/Vol]42 pg/mL0-20[facility] - CincinnatiURINE MICROSCOPIC ONLYon 26-71-1534MZCJNMPQHMMNIVtvjzluyKUUB SEENAcmc Healthcare SystemComment on above:Performed By: #### TSH, LIPID, T4, FT3, CMP #### [facility] [address] [address] [address] Alicia Perea identified Cx Nom (U)NOT INDICATEDNoSt. Mary's Medical Center, Ironton CampusComment on above:Performed By: #### TSH, LIPID, T4, FT3, CMP #### [facility] [address] [place] [address] Dr. Alicia Pruett SEENNormalNONE SEENAcmc Healthcare SystemComment on above:Performed By: #### TSH, LIPID, T4, FT3, CMP #### [facility] [address] [address] [address] Alicia PatelCrystals LM Nom (Urine sed)NONE SEENNormalNONE SEENSelect [facility] on above:Performed By: #### TSH, LIPID, T4, FT3, CMP #### [facility] [address] [address] [address] Vargas ChangEpithelial cells LM Ql (Urine sed)RARENormalNONE SEEN /RAREThe St. [facility] CampusCombeaumont hospital on above:Performed By: #### TSH, LIPID, T4, FT3, CMP #### [facility] [address] [address] [address] Alicia PatelMUCOUSNONE SEENNormalNONE SEENSelect [facility] on above:Performed By: #### TSH, LIPID, T4, FT3, CMP #### [facility] [address] [place] [address] Dr. Alicia PatelKrsbgYMV0-8Itvbcihq6-7Kuc [facility] on above:Performed By: #### TSH, LIPID, T4, FT3, CMP #### [facility] [address] [place] [address] Dr. Alicia PatelWBC2-5AbnormalNONE SEENSelect [facility] on above: Performed By: #### TSH, LIPID, T4, FT3, CMP #### [facility] [address] [place] [address] Dr. Alicia PatelXR CHEST 1 Von [id number] CHEST 1 VEXAM: XR CHEST 1 V [...] Electronically authenticated by: YOGESH BYERS Date: 2022-08-11 04:27NoSt. Mary's Medical [facility], [facility] CampusCovid-19 PCR (CVDTBH)on [id number]-CoV-2 (COVID-19) RNA SAVANNAH+probe Ql (Unsp spec)Not detectedNormalNOT DETECTEDThe [facility] Comment on above:Result Comment: This test is not yet approved or cleared by the [place] FDA. When there are no FDA-approved or cleared tests available, and other criteria are met, FDA can make tests available under an emergency access mechanism called an Emergency Use Authorization (EUA). The EUA for this test is supported by the [place] of Health and Human Service's (HHS's) declaration [...] #### TSH, LIPID, T4, FT3, CMP #### [facility] [address] [place] [address] Dr. Alicia RyderNZA A AND B AGon [id number] Rutan HospitalComment on above:Result Comment: Negative for Flu A protein angiten. Infection due to Flu A cannot be ruled out. FluA angiten in the sample may be below the detection limit of the test.Performed By: #### TSH, LIPID, T4, FT3, CMP #### [facility] [address] [place] [address] Dr. Alicia PatelINFLUBNEGKettering Health Miamisburg on above: Result Comment: Negative for Flu B protein antigen. Infection due to Flu B cannot be ruled out. FluB antigen in the sample may be below the detection limit of the test.Performed By: #### TSH, LIPID, T4, FT3, CMP #### [facility] [address] [place] [address] Dr. Alicia Khanna AGNegativeNormalNEGATIVE SEE COMMENTThe [facility] on above:Performed By: #### TSH, LIPID, T4, FT3, CMP #### [facility] [address] [place] [address] Dr. Alicia Gutierrez AGNegativeNormalNEGATIVE SEE COMMENTThe [facility] on above:Performed By: #### TSH, LIPID, T4, FT3, CMP #### [facility] [address] [place] [address] Dr. Alicia Jo INTACTon [id number], Nsfjnb56 pg/yDCsudpd86-09Jan [facility] Centerment on above:Performed By: #### TSH, LIPID, T4, FT3, CMP #### [facility] [address] [place] [address] Dr. Alicia PatelALBUMINvic [id number] [Mass/Vol]3.9 g/dLNormal3.4-5.0The [facility] Centerment on above:Performed By: #### TSH, LIPID, T4, FT3, CMP #### [facility] [address] [place] [address] Dr. Alicia PatelHEMOGRAM AND PLATELon [id number] (Bld) [Volume fraction]42.1 %Cevbfw65.0-54.0The [facility] Centerment on above:Performed By: #### TSH, LIPID, T4, FT3, CMP #### [facility] [address] [place] [address] Dr. Alicia PatelHemoglobin (Bld) [Mass/Vol]14.7 g/bZVqmzfy97.0-18.0The [facility] Centerment on above:Performed By: #### TSH, LIPID, T4, FT3, CMP #### [facility] [address] [place] [address] Dr. Alicia Madrigal (RBC) [Entitic mass]33.2 raWckfhb39.9-34.0The [facility] CampusComment on above:Performed By: #### TSH, LIPID, T4, FT3, CMP #### [facility] [address] [place] [address] Dr. Alicia Nixon (RBC) [Mass/Vol]34.9 g/bVUawftt68.9-35.2The [facility] CampusComment on above:Performed By: #### TSH, LIPID, T4, FT3, CMP #### [facility] [address] [place] [address] Dr. [facility]elMER[facility] (RBC) [Entitic vol]95.0 fLCritically high80.0-94.0The [facility] CampusComment on above:Performed By: #### TSH, LIPID, T4, FT3, CMP #### [facility] [address] [place] [address] Dr. Alicia PatelPLT190 103/unNenudz871-033Hqy [facility] CampusComment on above: Performed By: #### TSH, LIPID, T4, FT3, CMP #### [facility] [address] [place] [address] Dr. Alicia PatelRBC4.43 106/ulCritically low4.70-6.10The [facility] CampusCombeaumont hospital on above:Performed By: #### TSH, LIPID, T4, FT3, CMP #### [facility] [address] [place] [address] Dr. Alicia PatelWBC7.0 103/ulNormal4.0-11.0The [facility] CampusComment on above: Performed By: #### TSH, LIPID, T4, FT3, CMP #### [facility] [address] [place] [address] Dr. Alicia PatelMAGNESIUMon [id number] [Mass/Vol]1.7 mg/dLCritically low 1.8-2.4The [facility] CampusComment on above:Performed By: #### TSH, LIPID, T4, FT3, CMP #### [facility] [address] [place] [address] Dr. Alicia PatelPHOSPHORUSon [id number] [Mass/Vol]3.7 mg/dLNormal2.6-4.[address] [facility] CampusComment on above:Performed By: #### TSH, LIPID, T4, FT3, CMP #### [facility] [address] [address] [address] Alicia PatelPROF CHEM 8 (BAS METB)on [id number] gap [Moles/Vol]11.2 mmol/LNormalThe St[facility] CampusComment on above:Performed By: #### URTPCR #### [facility] [address] [place] [address] Dr. Alicia PatelCalcium [Mass/Vol]9.1 mg/dLNormal8.5-10.1The [facility] Comment on above:Performed By: #### URTPCR #### [facility] [address] [place] [address] Dr. Alicia PatelChloride [Moles/Vol]104 mmol/FNbbyvo13-248Mxd [facility] Comment on above:Performed By: #### URTPCR #### [facility] [address] [place] [address] Dr. Alicia PatelCO2 [Moles/Vol]29.2 mmol/SUswzgl19.0-32.0The [facility] Comment on above:Performed By: #### URTPCR #### [facility] [address] [place] [address] Dr. Alicia PatelCreatinine [Mass/Vol]1.40 mg/dLCritically high0.70-1.30The [facility] CampusComment on above:Performed By: #### URTPCR #### [facility] [address] [place] [address] Dr. Alicia DunnGFR-AF ZBOMJLYA15 mL/min/1.99a4Laokyhoihx low>=60The [facility] CampusComment on above:Performed By: #### URTPCR #### [facility] [address] [place] [address] Dr. Alicia DunnGFR-NON AF DLUIHVRK24 mL/min/1.41a0Nfnnchvgyb low>=60The [facility] CampusComment on above:Performed By: #### URTPCR #### [facility] [address] [place] [address] Dr. Alicia PatelGlucose [Mass/Vol]148 mg/dLCritically njkk10-110Mup [facility] CampusComment on above:Performed By: #### URTPCR #### [facility] [address] [place] [address] Dr. Alicia PatelPotassium [Moles/Vol]4.4 mmol/LNormal3.5-5.1[facility] Comment on above:Performed By: #### URTPCR #### [facility] [address] [place] [address] Dr. Alicia PatelSodium [Moles/Vol]140 mmol/RFocjrv894-984Aau [facility] Comment on above:Performed By: #### URTPCR #### [facility] [address] [place] [address] Dr. Alicia PatelUrea nitrogen [Mass/Vol]16.0 mg/dLNormal7.0-18.0The [facility] CampusComment on above:Performed By: #### URTPCR #### [facility] [address] [place] [address] Dr. Alicia Nguyễn nitrogen/Creatinine [Mass ratio]11.4 mg/mgNormalThe St. [facility] CampusComment on above:Performed By: #### URTPCR #### [facility] [address] [place] [address] Dr. Alicia Mathew RANDOM W/MICROSCOPICon [id number] SEENNormalNONE SEENAcmc Healthcare SystemComment on above:Performed By: #### TSH, LIPID, T4, FT3, CMP #### [facility] [address] [place] [address] Dr. Alicia PatelBilirubin Ql (U)NegativeNormalNEGATIVEThe [facility] Comment on above:Performed By: #### TSH, LIPID, T4, FT3, CMP #### [facility] [address] [address] [address] Alicia Pruett SEENNormalNONE SEENSelect [facility] on above:Performed By: #### TSH, LIPID, T4, FT3, CMP #### [facility] [address] [address] [address] Alicia Brizuelaarity (U)CLEARNormalCLEARAcmc Healthcare SystemComment on above: Performed By: #### TSH, LIPID, T4, FT3, CMP #### [facility] [address] [address] [address] Alicia Perera (U)LT. YELLOWNormalYELLOWAcmc Healthcare SystemCombeaumont hospital on above:Performed By: #### TSH, LIPID, T4, FT3, CMP #### [facility] [address] [address] [address] Alicia PatelCrystals LM Nom (Urine sed)NONE SEENNormalNONE SEENAcmc Healthcare SystemComment on above:Performed By: #### TSH, LIPID, T4, FT3, CMP #### [facility] [address] [address] [address] Vargas ChangEpithelial cells LM Ql (Urine sed)FEWAbnormalNONE SEEN /RARESelect Medical Specialty [facility] on above:Performed By: #### TSH, LIPID, T4, FT3, CMP #### [facility] [address] [address] [address] Alicia PatelGlucose Ql (U)NegativeNormalNEGATIVEMedina Hospitalment on above:Performed By: #### TSH, LIPID, T4, FT3, CMP #### [facility] [address] [address] [address] Alicia PatelHemoglobin Ql (U)NegativeNormalNEGATIVELutheran Hospital on above:Performed By: #### TSH, LIPID, T4, FT3, CMP #### [facility] [address] [address] [address] Alicia PatelKetones Ql (U)NegativeNormalNEGATIVEAcmc Healthcare SystemComment on above:Performed By: #### TSH, LIPID, T4, FT3, CMP #### [facility] [address] [address] [address] Alicia PatelLEUKOCYTESNegativeNormalNEGATIVEThe [facility] Centerment on above:Performed By: #### TSH, LIPID, T4, FT3, CMP #### [facility] [address] [address] [address] Alicia RuggieroCOUSNONEssence SEENNormalNONE SEENThe St[facility] CampusComment on above:Performed By: #### TSH, LIPID, T4, FT3, CMP #### [facility] [address] [address] [address] Alicia Porter Ql (U)NegativeNormalNEGATIVEThe St[facility] CampusComment on above:Performed By: #### TSH, LIPID, T4, FT3, CMP #### [facility] [address] [place] [address] Dr. Alicia PatelpH (U)5.5 [pH]Normal5-9The [facility] Centerment on above: Performed By: #### TSH, LIPID, T4, FT3, CMP #### [facility] [address] [address] [address] Alicia PatelRBCNDANIELA SEENAbnormal0-2The [facility] on above: Performed By: #### TSH, LIPID, T4, FT3, CMP #### [facility] [address] [address] [address] Alicia PatelSPEC GRAVITY1.619Eqxxvz0.005-<=1.025The [facility] on above:Performed By: #### TSH, LIPID, T4, FT3, CMP #### [facility] [address] [address] [address] Alicia Mathew PROTEINNegativeNormalNEGATIVE/ TRACEThe St[facility] Comment on above:Performed By: #### TSH, LIPID, T4, FT3, CMP #### [facility] [address] [address] [address] Alicia Baxter Qn (U)0.2 {Wil'U}/dLNormal0.2 - 1.0The [facility] CampusComment on above:Performed By: #### TSH, LIPID, T4, FT3, CMP #### [facility] [address] [address] [address] Alicia Sánchez SEENNormalNONE SEENThe [facility] CampusComment on above: Performed By: #### TSH, LIPID, T4, FT3, CMP #### [facility] [address] [address] [address] Alicia PatelURIC ACID SERUMon [id number] [Mass/Vol]5.6 mg/dLNormal 3.5-7.2The [facility] CampusComment on above:Performed By: #### TSH, LIPID, T4, FT3, CMP #### [facility] [address] [place] [address] Dr. Alicia Friend T PROTEIN CREAT RATIOon [id number] (U) [Mass/Vol] 26.0 mg/dLCritically high<=12.0The [facility] CampusComment on above:Performed By: #### TSH, LIPID, T4, FT3, CMP #### [facility] [address] [place] [address] Dr. Alicia Nj PROT CREAT RAT0.34NormalThe [facility] CampusComment on above: Performed By: #### TSH, LIPID, T4, FT3, CMP #### [facility] [address] [place] [address] Dr. Alicia Friend CREAT77.39 mg/kEEbnwwa60.00-300.00The [facility] Comment on above:Performed By: #### TSH, LIPID, T4, FT3, CMP #### [facility] [address] [place] [address] Dr. Alicia Patel Vital Signs Date TimeVital SignValuePerforming AcgmdugfpFhjsjmvs95-35-7838 14:15-0400Body meslfi977.8 cmSelect [facility]06-09-2025 14:150400Body mass index (BMI) [Ratio]40.3 kg/z1AteldwstpSelect Medical Specialty Hospital [facility]06-09-2025 14:15-0400Body hrjuzp450.45 kgSelect Medical Specialty [facility]06-09-2025 14:15-0400Diastolic blood wjvjefpz37 mm[Hg][facility] 12-03-2024 14:15-0400Heart rate81 /[facility] 12-03-2024 14:15-0400Respiratory rate18 /[facility] 12-03-2024 14:15-5353LuG2% (BldA) [Mass fraction]95 %[facility]06-09-2025 14:15-0400Systolic blood vyyslpto248 mm[Hg][facility]12-17-2024 11:27-0500Blood Pressure LocationNi [facility] [place] 980122-17-2024 11:27-0500Diastolic blood nkzkkkxy57 mm[Hg]Ni [facility] [place] 980122-17-2024 11:27-0500Heart rate62 /minNi [facility] [place] 980122-17-2024 11:27-0500Systolic blood fxzbywiv891 mm[Hg]Ni [facility]06-25-2024 11:49-0400Body .26 cmMD Jose Alfaro Work Phone: [facility]06-25-2024 11:49-0400 Body mass index (BMI) [Ratio]39.4 kg/m2MD Jose Alfaro Work Phone: [facility]06-25-2024 11:49-0400 Body .5 [degF]MD Jose Alfaro Work Phone: [facility]06-25-2024 11:49-0400 Body rnoima287.33 kgMD Jose Dustinnissa Work Phone: [phone] [place], [place] 7761906-25-2024 11:49-0400 Diastolic blood wmqdpaif17 mm[Hg]MD Jose Alfaro Work Phone: 1(214)638-[address] [place], [place] 7761906-25-2024 11:49-0400 Heart rate83 /minMD Jose Dustinnissa Work Phone: 1(959)098-[address] [place], [place] 776[address]06-25-2024 11:49-0400 Respiratory rate20 /minMD Jose Alfaro Work Phone: [phone]06-25-2024 11:49-0400 SaO2% (BldA) [Mass fraction]94 %MD Jose Alfaro Work Phone: [phone]06-25-2024 11:49-0400 Systolic blood wlwvzwov799 mm[Hg]MD Jose Alfaro Work Phone: 1([phone])900-[address] [place], [place] [address]761912-19-2023 11:00-0500 Body cweyqe543.26 cmAbdul Brit Other [employer] Other [id number] 11:00-0500Body mass index (BMI) [Ratio] 38.51 kg/i5Qpcqc Brit Other [employer] Other 12-19-2023 11:00-0500Body tcsdwjqglud99.2 [degF]Alicia Brit Other [employer] Other 12-19-2023 11:00-0500Body rdrmly394.3 kgAbdul Brit Other [employer] Other 12-19-2023 11:00-0500Diastolic blood peozoqma56 mm[Hg] Alicia Brit Other [employer] Other 12-19-2023 11:00-0500Respiratory rate18 /minAbdul Brit Other [employer] Other 12-19-2023 11:00-9642SiH6% (BldA) [Mass fraction]95 % Alicia Brit Other [employer] Other 12-19-2023 11:00-0500Systolic blood rfiniyyz802 mm[Hg] Alicia Brit Other [employer] Other 06-05-2023 10:20-0400Body rkzubh635.26 cmAbdul Brit Other [facility] Other 06-05-2023 10:20-0400Body mass index (BMI) [Ratio] 36.77 kg/c8Ccymw Brit Other [employer] Other 06-05-2023 10:20-0400Body vkljfafndpv69.3 [degF]Alicia Brit Other [employer] Other 06-05-2023 10:20-0400Body gggegu529.95 kgAbdul Brit Other [employer] Other 06-05-2023 10:20-0400Diastolic blood twhdfggy48 mm[Hg] Alicia Brit Other [employer] Other 06-05-2023 10:20-0400Respiratory rate18 /minAbdul Brit Other [employer] Other 06-05-2023 10:20-3210JwX9% (BldA) [Mass fraction]96 % Alicia Brit Other [facility] [employer] Other [id number] 10:20-0400Systolic blood zzipllsg907 mm[Hg] Alicia Brit Other [facility] [employer] Other [id number] 17:25-0400Heart rate66 /minNi [facility]04-13-2023 17:25-8904UuH2% (BldA) [Mass fraction]92 %Ni [place] [facility]04-13-2023 17:25-0400 Respiratory rate16 /minNi [facility]04-13-2023 17:24-0400Body sghabuujued13.7 [degF]Ni [place] [facility]04-13-2023 17:24-0400 Diastolic blood olawgzkv50 mm[Hg]Ni [place] [facility]04-13-2023 17:24-0400Mean blood vkglujkd951 mm[Hg]Ni [place] [facility]04-13-2023 17:24-0400 Systolic blood audcnjld377 mm[Hg]Ni [place] [facility]04-13-2023 16:18-0400Heart rate61 /minNi [place] [facility]04-13-2023 16:18-9965IqT1% (BldA) [Mass fraction]95 %Ni [place] [facility]04-13-2023 16:17-0400 Diastolic blood fmnvdefm41 mm[Hg]Ni [place] [facility]04-13-2023 16:17-0400Mean blood gkfkprko351 mm[Hg]Ni [place] [facility]04-13-2023 16:17-0400 Systolic blood ukkuthnc902 mm[Hg]Ni [place] [facility]04-13-2023 16:17-0400 Respiratory rate16 /minNi [place] [facility]04-13-2023 16:11-0400 Diastolic blood vvzvyyyp47 mm[Hg]Ni [place] [facility]04-13-2023 16:11-0400Heart rate58 /minNi [place] [facility]04-13-2023 16:11-0400Mean blood nevesdsg55 mm[Hg]Ni [place] [facility]04-13-2023 16:11-0400 Respiratory rate17 /minNi [place] [facility]04-13-2023 16:11-1688PhB2% (BldA) [Mass fraction]97 %Ni [place] [facility]04-13-2023 16:11-0400 Systolic blood vkgrkuzu066 mm[Hg]Ni [place] [facility]04-13-2023 16:00-0400Mean blood mm[Hg]Ni [place] [facility]04-13-2023 16:00-0400 Respiratory rate13 /minNi [place] [facility]04-13-2023 15:55-0400Mean blood ioloadaa84 mm[Hg]Ni OLIVARES [address] [place], [place] 0378204-13-2023 15:55-0400 Respiratory rate17 /minNi [facility]04-13-2023 15:46-0400Body uapotordpcd78.06 [degF]Ni [place] [facility]04-13-2023 15:40-0400 Respiratory rate15 /minNi [facility]04-13-2023 10:14-0400Mean blood pynlalvl00 mm[Hg]Ni [employer]04-13-2023 10:14-0400Blood Pressure LocationNi [facility]04-13-2023 10:13-0400Heart rate64 /minNi [employer]04-13-2023 10:12-0400Body ajebkskqcpv70.06 [degF]Ni [place] [facility]04-13-2023 10:12-0400Blood Pressure LocationNi [place] [facility]03-22-2023 14:40-0400Body .26 cmAbdul Brit Other [facility] [employer] Other [id number] 14:40-0400Body mass index (BMI) [Ratio] 37.48 kg/e7Zompj Brit Other [place] [employer] Other [id number] 14:40-0400Body wsrwyk303.12 kgAbdul Brit Other [place] [employer] Other 03-22-2023 14:40-0400Diastolic blood firbdypo69 mm[Hg] Alicia Brit Other [employer] Other 03-22-2023 14:40-0400Respiratory rate18 /minAbdul Brit Other [facility] [employer] Other 03-22-2023 14:40-5606IdD5% (BldA) [Mass fraction]97 % Alicia Brit Other [facility] [employer] Other 03-22-2023 14:40-0400Systolic blood ytrttwen944 mm[Hg] Alicia Brit Other [place] [employer] Other 03-13-2023 10:01-0400Blood Pressure LocationNi [facility]03-13-2023 10:01-0400Diastolic blood mm[Hg]Ni [facility]03-13-2023 10:01-0400Heart rate68 /minNi [facility]03-13-2023 10:01-0400Systolic blood psodkdgb433 mm[Hg]Ni [facility]02-19-2023 12:16-0500Body agysbdziamn07.8 [degF]MD Jose Alfaro Work Phone: [facility]02-19-2023 12:16-0500 Diastolic blood cykezgen75 mm[Hg]MD Jose Alfaro Work Phone: [facility]02-19-2023 12:16-0500 Heart rate68 /minMD Jose Alfaro Work Phone: [phone] [place], [place] 7761902-19-2023 12:16-0500 Respiratory rate18 /minMD Jose Alfaro Work Phone: [phone] [place], [place] 7761902-19-2023 12:16-0500 SaO2% (BldA) [Mass fraction]95 % Jose Channissa Work Phone: [phone]02-19-2023 12:16-0500 Systolic blood powuhghy030 mm[Hg] Jose Dustinnissa Work Phone: [phone] [place], [place] 6570402-19-2023 05:08-0500 Body astahm179.2 kgMD Jose Alfaro Work Phone: [phone] [place], [place] 6570402-17-2023 13:10-0500 Inhaled oxygen flow rate8 L/minMD Jose Alfaro Work Phone: [phone] [place], [place] 6570402-17-2023 11:54-0500 Body hymluz142.8 cmMD Jose Alfaro Work Phone: [phone] [place], [place] 6570402-17-2023 11:54-0500 Body mass index (BMI) [Ratio]37.3 kg/m2MD Jose Alfaro Work Phone: [phone] [place] 6570412-06-2022 11:40-0500 Body .26 cmAbdul Brit Other [facility] [employer] Other 12-06-2022 11:40-0500Body mass index (BMI) [Ratio] 37.77 kg/o9Arbbb Brit Other [facility] [employer] Other 12-06-2022 11:40-0500Body lamfodqdcpw31.5 [degF]Alicia Brit Other [place] [employer] Other 12-06-2022 11:40-0500Body oaqmbl139.03 kgAbdul Brit Other [employer] Other 12-06-2022 11:40-0500Diastolic blood kkkcetib95 mm[Hg] Alicia Brit Other [employer] Other 12-06-2022 11:40-0500Respiratory rate18 /minAbdul Brit Other [employer] Other 12-06-2022 11:40-5023OcM4% (BldA) [Mass fraction]93 % Alicia Brit Other [employer] Other 12-06-2022 11:40-0500Systolic blood mm[Hg] Alicia Brit Other [employer] Other 05-31-2022 11:20-0400Body .26 cmAbdul Brit Other [employer] Other 05-31-2022 11:20-0400Body mass index (BMI) [Ratio] 36.26 kg/u3Varop Brit Other [employer] Other 05-31-2022 11:20-0400Body .4 [degF]Alicia Brit Other [employer] Other 05-31-2022 11:20-0400Body sojuzu507.4 kgAbdul Brit Other [employer] Other 05-31-2022 11:20-0400Diastolic blood gytsmmoo15 mm[Hg] Alicia Brit Other [employer] Other 05-31-2022 11:20-0400Respiratory rate18 /minAbdul Brit Other [facility] [employer] Other 05-31-2022 11:20-4565KnL4% (BldA) [Mass fraction]95 % Alicia Brit Other [facility] [employer] Other 05-31-2022 11:20-0400Systolic blood gvynwimd507 mm[Hg] Alicia Brit Other [facility] [employer] Other 05-02-2022 09:17-0400Blood Pressure LocationPaNetProspex [facility] 05-02-2022 09:17-0400Diastolic blood wlyphryn51 mm[Hg] [employer] [facility] 05-02-2022 09:17-0400Heart rate64 /minPatrick [employer] [facility] 05-02-2022 09:17-0400Respiratory rate16 /minPatricRankomat.pl [facility] 05-02-2022 09:17-0400Systolic blood vnxiuqyg185 mm[Hg] [employer] [facility] 11-30-2021 11:00-0500Body yrsaoo590.26 cmAbdul Brit Other [facility] [employer] Other 11-30-2021 11:00-0500Body mass index (BMI) [Ratio]34.4 kg/v7Qgaus Brit Other [place] [employer] Other 11-30-2021 11:00-0500Body vxmtcuzvxii44.9 [degF]Alicia Brit Other [place] [employer] Other 11-30-2021 11:00-0500Body iuxdve161.69 kgAbdul Brit Other [employer] Other 11-30-2021 11:00-0500Diastolic blood qjxoxjaf61 mm[Hg] Alicia Brit Other [place] [employer] Other 11-30-2021 11:00-0500Respiratory rate18 /minAbdul Brit Other [place] [employer] Other 11-30-2021 11:00-3799LeC8% (BldA) [Mass fraction]94 % Alicia Brit Other [place] [employer] Other 11-30-2021 11:00-0500Systolic blood jwfytpyf714 mm[Hg] Alicia Brit Other [employer] Other Encounters Encounter DateEncounter TypeCare ProviderFacilityStart: 12-62-4743oclvrikdet Gregory P COOKFacility:JACOB SanduskyStart: 01-28-2025 End: 29-64-4302ngcjcxvhmjJPNBGK [facility] Start: 27-42-5708rttrywalghLJKIUW [facility] Start: 12-27-2024 End: 52-62-0388tkcrvuazuaNLNSVG [facility] Start: 12-24-2024 End: 27-92-8153cknbhwqmehXAHBVY [facility] Start: 12-10-2024 End: 78-71-9989ndjbczxdxwHvnupdx P COOKFacility:FTMCStart: 12-10-2024 End: 90-40-7114Wfr Drop offGregory P CARLOS [facility] Start: 12-10-2024 End: 58-55-8629yptleopwteBddzbvs P COOKFacility:EU SanduskyStart: 12-10-2024 End: 36-41-5138Aymeitd encounter procedureGregory P CARLOS [facility] Start: 12-03-2024 End: 43-35-8757dgrqrryecqTlyptxxlgC[facility] Clinic [facility] Work Phone: Start: 12-03-2024 End: 59-72-7690Yllzoph encounter [facility]Angel [facility] Work Phone: Start: 37-05-9816Yrw-patient / Non-visitAngel Medical Center [facility] Work Phone: Start: 06-12-2024 End: 69-29-2054iazpxxbejnIcxzelc P COOKFacility:EU [place]kyStart: 06-12-2024 End: 92-89-6957Vilujjz encounter procedureGregory P CARLOS [facility] Start: 05-21-2024 End: 48-56-2018inzcguoqvdJZRDQH [facility] Start: 12-20-2023 End: 19-83-9703oftmltwfzcYF Jose Alfaro Work Phone: [facility] Work Phone: Start: 12-20-2023 End: 09-11-3384Myapyqd encounter procedureMD Jose Alfaro Work Phone: [facility] Work Phone: Start: 44-83-4415Glg-patient / Non-visitMD Jose Alfaro Work Phone: [facility] Work Phone: Start: 10-26-2023 End: 10-72-3883wdggubulsjEQIU DUCKETTNot AvailableStart: 10-18-2023 End: 22-78-8627kxooinuuopPI Jose Alfaro Work Phone: [facility] Work Phone: Start: 10-18-2023 End: 35-82-1922Jwganqdo ReferredMD Jose Alfaro Work Phone: [facility] [place] [facility] [place] HospStart: 09-27-2023 End: 67-56-7011Owumclgsz Result EncounterKyle Jenny DO Other Phone: [facility] External Department UnsolicitedStart: 09-27-2023 End: 00-34-7628Ppadkblwk Result EncounterKyle Jenny DO Other Phone: [facility] External Department UnsolicitedStart: 09-12-2023 Patient encounter statusKyle Jenny DO Other Phone: noms HealthcareStart: 09-12-2023 End: 83-38-4213jfqqscgvlyEKSK DUCKETTNot AvailableStart: 07-29-2023 End: 05-52-4297Szzbdmhfx Result EncounterTesha PEDRAZA Work Phone: [facility] External Department UnsolicitedStart: 07-29-2023 End: 52-85-7286Iqyxfjruu Result EncounterTesha PEDRAZA Work Phone: [facility] External Department UnsolicitedStart: 07-02-2023 End: 42-75-6295Awrtpqi encounter procedureMD Jose Hoy Work Phone: [facility] [place] [facility] [place] Work Phone: Start: 07-02-2023 End: 44-08-4562ofsfvfcxunSA Jose M Hoy Work Phone: [facility] [place] [facility] Work Phone: Start: 06-28-2023 End: 37-09-9779Hcgfnfz encounter procedureMD Jose Hoy Work Phone: [facility] [place] [facility] [place] Work Phone: Start: 06-28-2023 End: 98-29-4501mycljbdsaiCP Jose M Hoy Work Phone: [facility] Work Phone: Start: 06-16-2023 End: 56-23-7663Xfwyofo encounter procedureMD Jose Hoy Work Phone: [facility] [place] [facility]-Ultrasound [facility] [place] Work Phone: Start: 06-16-2023 End: 09-31-3720wkukocjaspTF Jose M Hoy Work Phone: [facility] Work Phone: Start: 06-14-2023 End: 07-59-6240ilctbsirrxDsgik Brit Other [place] [employer] Other Start: 74-69-4612Syclhg outpatient visit 25 minutes Alicia QadirFPG NephrologyStart: 06-14-2023 End: 52-93-8882Dneperi encounter procedureNi OLIVARES [facility] Start: 12-20-2022 End: 51-91-3084Elkfmpb encounter procedureNi OLIVARES [facility] Start: 11-29-2022 End: 76-57-4828zujbnktadrEixyd Brit Other [employer] Other Start: 52-50-6166Elsloq outpatient visit 25 minutes Alicia QadirFPG NephrologyStart: 11-10-2022 End: 97-10-1337ymhogbwstgQU JOSE HOY .Facility:E5Ssmht: 11-08-2022 End: 58-76-7777yztqomvwcdXF JOSE HOY .Facility:M3Vhoef: 11-06-2022 End: 22-14-1414whrsagjyokDQ JOSE HOY .Facility:O5Afses: 10-29-2022 End: 82-38-4970Fksdpca encounter procedurePayanira BRAUN [facility] start: 10-26-2022 End: 26-09-3125orkgzvcuakVWDFYZM BOESFacility:H2Ufzcv: 10-22-2022 End: 37-60-3431dopzngtrekTW MILTON BRAUN .Facility:O5Dcumw: 10-15-2022 End: 69-91-6484usflkddpjfZM JOSE ALFARO .Facility:O8Cfzcx: 10-14-2022 End: 75-61-0221zsbjygxthdSYNBWYA BOESFacility:U1Cewwz: 10-07-2022 End: 31-89-2531Hejszrryo to same day surgery Kusum OLIVARES [facility] Start: 09-15-2022 End: 16-30-3668pzudzyqspiJojjy Brit Other [facility] [employer] Other Start: 32-59-2877Plfudc outpatient visit 25 minutes Alicia QadirFPG NephrologyStart: 50-51-6813zghubsjjigYgjikbkp:02241Afckb: 09-13-2022 End: 04-94-2719pdzqkjdsjkPVZVE QADIRFacility:R2Beoxn: 09-06-2022 End: 31-43-1601Nscdgbv encounter procedureRidgechandu OLIVARES [facility] Start: 09-01-2022 End: 45-90-8717dmduosxvymIO NI Garcia CARLOSFacility:M9Zrgle: 08-24-2022 End: 10-65-1212qcrmbokwcqOG JOSE HOY .Facility:R1Mcwjn: 08-22-2022 End: 46-27-6777soolhgekffGD JOSE HOY .Facility:R9Watly: 08-21-2022 End: 35-81-1106mpadhimqbaAM JOSE HOY .Facility:K8Sloef: 08-18-2022 End: 43-40-1629lsloeqqwpmZPPRU QADIRFacility:Z3Iffop: 41-78-6922lxrxalndok Facility:[facility]tart: 25-41-6286Fdqujhg encounter statusMD Jose Alfaro Work Phone: [facility] CincinnatiComment on above: Problem List clean-up per request of Phys. EHR CmteStart: 08-11-2022 End: 35-58-3940Wfyatruqk for preprocedural cardiovascular examinationMD Jose Alfaro Work Phone: [facility] Daytontart: 08-11-2022 End: 23-90-3925Fmtvclobaj and management of inpatientMD Jose Hoy Work Phone: [facility] [place] [facility] Work Phone: Start: 08-11-2022 End: 25-36-0199kdunankaqpVDSVO PARKERFacility:X5Juafm: 08-02-2022 End: 03-65-9146cenyexkjksFY JOSE HOY .Facility:T9Nemcy: 07-08-2022 End: 58-42-4504ttbgimrhkkIN JOSE HOY .Facility:P3Pqzlt: 06-01-2022 End: 33-77-3829cwudvggwpdEmkeb Brit Other [employer] Other Start: 34-59-3675Ldnfup outpatient visit 25 minutes Alicia QadirFPG NephrologyStart: 05-24-2022 End: 14-67-2415nttrftrqkoHUUZG QADIRFacility:M9Ydzjx: 02-03-2022 End: 53-88-9366jkhlsnnbycGA JOSE ALFARO .Facility:I9Ahvxu: 11-24-2021 End: 27-80-2550imxforfndtJagvo Brit Other [employer] Other Start: 82-29-8983Kmymyu outpatient visit 25 minutes Alicia QadirFPG NephrologyStart: 10-26-2021 End: 12-73-7551Mhazrod encounter procedurePatricpedro luis BRAUN [facility] start: 05-26-2021 End: 15-04-0309jpzobgwalmYxnfc Brit Other [employer] Other Start: 53-52-6248Vwricv outpatient visit 25 minutes Alicia QadirFPG Nephrology Procedures DateProcedureProcedure DetailPerforming ClinicianStart: 33-61-5527PJ ABDOMEN PELVIS W CONKyle Jenny DO Other Phone: Start: 13-83-8393NAD 12-LEADAmy Magalys PEDRAZA Work Phone: Start: 63-74-1215Yawfnjfeopacdab of bilateral kidneys MD Jose Alfaro Work Phone: Start: 36-72-7698Maniyyzjvqs removal of ureteric stent Ni OLIVARES Start: 26-78-4374CnmwxmbmijItpseui COOK Start: 73-07-4515XYQ screeningABDUL QADIRComment on above:Performed By: #### TSH, LIPID, T4, FT3, CMP #### [facility] [address] [address] [address] Alicia Willson: 00-96-4006Sufwbczeqvksxv shockwave lithotripsy of calculus of kidneyWinston Medical Centerchandu [employer] Start: 50-52-4661KDU screeningABDUL QADIRComment on above:Performed By: #### PSAD #### [facility] [address] [address] [address] Alicia Willson: 54-51-7453AfydgynwrcJR Jose Alfaro Work Phone: Start: 12-25-8827Nnstc chest X-rayMD Jose Alfaro Work Phone: Start: 91-36-3735Gdhvrvzdrvois prostatectomyPatrick [employer] Start: 81-20-2044Nlkdql of prostatePaCrambuk [facility] Start: 34-83-8566rbfmuirugg, bilateral, ureteroscopy, laser lithotripsyPatrick [facility] [employer] [facility] ear surgeryPatrick [employer] ear surgeryGregValldata Services Plan of Treatment DateCare ActivityDetailAuthorStart: 65-62-0245ZugyblfsbSelect Medical [facility]ty [facility] Start: 18-48-7615Zpzpndqmj culture of sputumSelect Medical Specialty Hospital [facility] Start: 23-84-8830Vosraqc CultureAerobic CultureSelect Medical Specialty Hospital [facility] Start: 66-34-6826Ledffzrzryofm of transfusion reactionGram StainKindred Hospital Daytontart: 84-01-6569Rnamfjkz admissionKindred Hospital Daytontart: 23-98-2661Wfhkeyya to cardiologTwin City Hospitaltart: 44-49-4292Nssvnrbh to nephrologTwin City Hospitaltart: 26-63-6016Mfcylswp to urologMemorial Health System Selby General HospitalCT Chest WO [facility] CenterPatient referral [facility] Work Phone: Renal function 1999 panel - Serum or [facility] HospitalRenal function 1999 panel - Serum or [facility] HospitalRenal function 1999 panel - Serum or [facility] Immunizations Immunization DateImmunizationNotesCare ZoytezctCpkmfies42-76-9056sknmqjsyy virus vaccine, unspecified formulationWinston Medical CenterValldata Services [facility]11-06-2023pneumococcal 20-valent conjugate vaccineTrustCloud [facility]y11-06-2023tetanus toxoid, reduced diphtheria toxoid, and acellular pertussis vaccine, adsorbedGregValldata Services [facility] [place] 980120-03-2022SARS-CoV-2 (COVID-19) mRNAMUL.ORD!j18798Xjturml COOK [facility] [place] 980121-22-2021SARS-CoV-2 (COVID-19) Ad26 vaccine, recombinantTrustCloud [facility] [place] 980120-04-2021influenza virus vaccine, unspecified formulationWinston Medical CenterValldata Services [facility] [place] 980120-04-2021Seasonal trivalent influenza vaccine, adjuvanted, preservative freeKyle Jenny DO Other Phone: [facility] HospitalIjkfopooxc96-62-0541IIUP-VvP-5 (COVID-19) Ad26 vaccine, recombinantTrustCloud [facility]01-01-2021SARS-CoV-2 (COVID-19) Ad26 vaccine, recombinantPaNetProspex [facility] Hospitalevue 10276932-75-9492quryuqikv virus vaccine, unspecified formulationGregory [employer] [facility]y10-23-2020Seasonal trivalent influenza vaccine, adjuvanted, preservative freeKyle Jenny DO Other Phone: [facility] HospitalTrykawyyip84-38-7190kzqjfq vaccine recombinant Ni [employer] [facility]06-11-2020zoster vaccine recombinantNi [employer] [facility] Hospitaly10-09-2019influenza virus vaccine, unspecified formulationPaCrambuk View the Space [facility] 10738886-78-1806eyzwxijkv virus vaccine, unspecified formulationGregory [employer] [facility] Hospitaly10-10-2017influenza, high dose seasonal, preservative-freeKyle Jenny DO Other Phone: [facility] HospitalWtcstiuvdw32-02-2180vwpqzvkbumdu conjugate vaccine, 13 valentGregory [employer] [facility]y10-17-2016influenza virus vaccine, unspecified formulationKyle Jenny DO Other Phone: [facility] HospitalMvzfevnmpk19-10-2927ggzeihdss, unspecified formulationGregory [employer] [facility] Payers DatePayer CategoryPayerPolicy [id number] (Managed Care)[employer] MEDICARE [id number]-rtj [id number] 2023Medicare [id number] Health Insurance [id number] .[id number] Health [id number] 2.1.046547.3.57[id number] 2..1.185697.3.579.[id number] ..1.065815.3.579.2.58810-77-3357Tvxzmzj2085341 2..1.824227.3.579.2.50014-11-6311Vmisrsj1528979 2..1.974907.3.579.[id number] 2..1.308998.3.57[id number] 2.0.1.382899.3.579.2.70336-36-3158Iobkanq0707869 2..1.978296.3.579.2.40758-37-3006Gawcbfe0688125 2.16.840.1.658643.3.579.2.30433-21-0285Glqvcxr3664186 2.16.840.1.379056.3.579.2.39929-28-8093Uydvheg5996472 2.16.840.1.998101.3.579.2.26813-88-0750Lddzxjm9496853 2.16.840.1.827923.3.579.2.06506-68-4379Fekwrzv1408408 2.16.840.1.033996.3.579.2.96652-13-9023Aalbmbq1250655 2.16.840.1.517488.3.579.2.09651-25-8983Iujstgl9703071 2.16.840.1.123263.3.579.2.52052-20-6300Ufjdvwl1827206 2.16.840.1.015064.3.579.2.13000-25-4067Pgberpv2326534 2.16.840.1.353474.3.579.2.83419-39-9253Nvfzdde3592135 2.16.840.1.445099.3.579.2.08500-82-7989Gqbezxs5804001 2.16840.1.662998.3.579.2.84911-42-4271Qzbkeja8699359 2.16.840.1.422623.3.579.2.93923-13-4358Qbfuykd2929096 2.16.840.1.938070.3.579.2.088007-41-7235Ghuxqfc5123728 2.16.840.1.664380.3.579.2.885048-05-3530Aopabye48344613 2.16.840.1.634822.3.579.2.46487-51-4932Ermakva40713381 2.16.840.1.052348.3.579.2.05369-76-9791Cqqpmtx33617546 2.16.840.1.132757.3.579.2.30893-33-4382Hdaigds70167270 2.16.840.1.8408[id number] 2.16.840.1.112473.19Medicare [id number] 2.16840.1.245002.19UnknownAnthem /[id number] 2.840.1.998537.3.579.2.117Mtbelej48188832 2.840.1.968737.3.579.2.531 Mmxvasb28507091 2.16.840.1.866554.3.579.2.819Jwfjfqo86034386 2.840.1.353210.3.579.2.531 Social History DateTypeDetailFacilityStart: 08-18-2020 End: 30-21-7395Nnzfper smoking statusEx-smoker (finding)[employer] Other Comment on above:quit in 1978Sex [facility]igned [facility] [employer] Other Start: 25-80-4615Rzt Assigned At [facility]woodtart: 27-43-9684Bwzuymz smoking statusNeverExecutive Urology of Mercy Hospitalomment on above:quit in 1978 Start: 04-06-2019 End: 43-97-1372CvuTbvo (finding)[facility] Daytonexual OrientationExec[facility] of [facility] Start: 45-42-2516Bmnocji smoking status NHISTobacco smoking consumption unknownS[facility] LAKE [facility] HealthcareStart: 32-32-7508Ayrlfhlru beverage intakeDeferSALT LAKE BEHAVIORAL HEALTH [facility] HealthcareStart: 57-00-1013Brr assigned at birthNot on [facility] Medical Equipment Procedure CodeEquipment CodeEquipment Original TextEquipment IdentifierDates Cystoscopy, with ureteral calculus manipulation and stent placementPolymeric ureteral stent()[id number] FDAStart: 06-15-2019 Cystoscopy, with ureteral calculus manipulation and stent placementPolymeric ureteral stent()[id number] FDAStart: 06-15-2019 Cystoscopy, with ureteral calculus manipulation and stent placementPolymeric ureteral stent()[id number] FDAStart: 08-13-2022 Biopsy, prostate, with US guidancePolymeric ureteral stent ()[id number] FDAStart: 68-27-5551ZBQXSBMXBZ URETEROSCOPY CARLOS OLIVEROS, Ni Garcia 12/02/22 Unknown Ureter R {01}[id number]{17}[id number]{10}[id number] FDAStart: 59-50-0591zl directed In Vitro Goals DatePatient GoalDesired Activity/State Functional Status YemfDgqmzqqemdWmqjshVxfewikq47-42-8712Rwnajcjuxz StatusN/AExecutive [facility] of [facility]06-26-2023Functional StatusN/AFMagruder Hospital03-13-2023Functional StatusN/AExec[facility] of [facility]02-19-2023Functional statusPatient at BaselineC[facility] Clinic [facility] Work Phone: Mental Status DmtcZjdjqkwfdlGhlgrsRqxnacnz68-59-3814Ogcjzprde functionCognitive Status Patient at BaselineC[facility] Clinic [facility] Work Phone: Clinical Notes 05-26-2021 to 01-28-2025 Note Date & WizlTrfdBfixstlm62-70-80[address] - [facility] Subjective Victorino Smyth is a 84 [...] use: Yes Comment: socially Drug use: Never [facility] Victorino is seen for follow up. He is an 84 yo man with prior history of CAD and drug eluting stenting of LAD in March of 2013, and then developed acute IN related to ISR of the LAD stent on 09/28/2016 and underwent emergent [facility] JOSE [facility] [...] No swelling. Cervical back: (more content not included)...[facility] 12-27-2024 NotePatient: Victorino Smyth Pre-sedation Evaluation: Conscious, [...] nocturia 05/21/2024 Chronic obstructive pulmonary disease (COPD) ([facility]) 05/21/2024 Diabetes ([facility]) 05/21/2024 Erectile dysfunction 05/21/2024 H/O: hypothyroidism 05/21/2024 Hematuria 05/21/2024 High prostate specific antigen (PSA) 05/21/2024 Hydronephrosis with ureteral calculus 05/21/2024 Hyperkalemia 05/21/2024 Hyperplastic colon polyp 05/21/2024 Kidney stone 05/21/2024 Left renal atrophy 05/21/2024 Lung nodule 05/21/2024 Metabolic acidosis 05/21/2024 Myocardial infarct ([facility]) 05/21/2024 Occult blood in stools 05/21/2024 Postprandial diarrhea 05/21/2024 Prostate cancer ([facility]) 05/21/2024 Prostatic enlargement 05/21/2024 Rheumatoid arthritis ([facility]) 05/21/2024 Right distal ureteral calculus 05/21/2024 Secondary hyperparathyroidism 05/21/2024 CKD (chronic kidney disease) stage 3, GFR 30-59 ml/min ([facility] 05/21/2024 Clot retention of urine 05/21/2024 Carpal tunnel syndrome 09/12/2023 Coronary atherosclerosis 05/28/2013 Essential hypertension 05/28/2013 Benign prostatic hyperplasia 05/16/2013 Chest pain 05/16/2013 Hyperlipidemia 05/16/2013 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[facility]) 05/16/2013 Type 2 diabetes mellitus without complication ([facility] 05/16/2013 Coronary artery disease 12/24/2024 Cardiovascular stress test abnormal 12/24/2024 Shortness of breath 12/24/2024 Allergies: Allergies[2] ORDER BOOKER/Current Medications: Prescriptions Prior to Admission[3] Current Medications[4] [...] kidney disease Coronary artery disease Diabetes mellitus ([facility] Hyperlipidemia Hypertension Myocardial infarction ([facility]) [2] Allergies Allergen Reactions Ciprofloxacin Itching Penicillins [...] daily. Do not cr (more content not included)...[facility]06-30-[address] [facility] Subjective Victorino Smyth is a 84 [...] March of 2013, and then developed acute IN related to ISR of the LAD stent on 09/28/2016 and underwent emergent Promus JOSE RAMON [facility] [...] There is no abdominal (more content not included)...[facility]06-16-2025 Hospital Discharge instructions Patient Education 12/10/2024 11:32:33 [...] treatment? Where to find more information The [place] [employer]: www.cancer.org [place] [employer]: www.auanet.org Contact a health care [...] provider. Document Revised: 12/07/2021 Document Reviewed: 12/07/2021 [employer] Patient Education 2023 Spot formerly [employer]. Follow Up Care 06/12/2024 11:57:45 With:CARLOS OLIVEROS, Ni Garcia, URL Address: [address] [place] [address] [address] [place] [address]- When: Unknown Comments:6 mos w/ PSA [facility] [id number] NotePatient Education Oncology Prostate Cancer Screening Prostate [...] Where to find more information ??? [employer]: www.cancer.org ??? [employer]: www.auanet.org Contact a health care [...] men. The prostate gland (more content not included)...[facility]12[facility]17-2024 Hospital Discharge instructions Patient Education 06/12/2024 11:45:49 [...] include: ?8 oz (237 mL) of milk, gfdtzbh-fpbqjflggqyl-rrows milk, and calcium- fortifiedfruit juice. Calcium-fortified means [...] ?Spinach (cooked), rhubarb, beets, sweet potatoes, and Turkish chard. ?Peanuts. ?Potato chips, hungarian fries, and baked potatoes with skin on. ?Nuts and nut products. ?Chocolate. If you regularly take a diuretic medicine, make sure to eat at least 1 or 2 servings of fruits or vegetables that are high in potassium each day. These include: ?Avocado. ?Banana. ?Bypro, prune, carrot, or tomato juice. ?Baked potato. [...] magnesium, fish oil, or vitamin B6. Take ataq-nak-efpzyym and prescription medicines only as told by [...] Casseroles. Pizza. Lasagna. Frozen meals. Potato chips. Surinamese fries. The items listed above may not [...] provider. Document Revised: 09/23/2022 Document Reviewed: 09/23/2022 [employer] Patient Education 2023 Spot formerly [employer]. Follow Up Care 06/14/2023 09:52:06 With:CARLOS OLIVEROS, Ni Garcia, URL Address: [address] [place], [place] [id number]- When: Unknown [facility] Tom [id number] NotePatient Education Nephrology Dietary Guidelines to Help [...] ? 8 oz (237 mL) of milk, qbojezj-etztxtglecgo-cyexp milk, and calcium- fortifiedfruit juice. Calcium-fortified means [...] Spinach (cooked), rhubarb, beets, sweet potatoes, and Turkish chard. ? Peanuts. ? Potato chips, hungarian fries, and baked potatoes with skin on. ? Nuts and nut products. ? Chocolate. ??? If you regularly take a diuretic medicine, make sure to eat at least 1 or 2 servings of fruits or vegetables that are high in potassium each day. These include: ? Avocado. ? Banana. ? Bypro, prune, carrot, or tomato juice. ? Baked [...] fish oil, or vitamin B6. ??? Take veny-abv-zuqhune and prescription medicines only as told by your health (more content not included)...[facility]11-25-2024 NoteUT Cardiology - [facility] Subjective Victorino Smyth is a 83 [...] March of 2013, and then developed acute IN related to ISR of the LAD stent on 09/28/2016 and underwent emergent Promus JOSE RAMON stent to the LAD at [facility] [...] normal. Allergies Allergies All (more content not included)...[facility]12-19-2023 Evaluation note* Encounter Date Diagnosis Assessment Notes Treatment Notes Treatment Clinical Notes May, Diabetes mellitus with chronic k idney disease (ICD-10 - E11.22) He has arj-vyldhdi-kbspjlxds type 2 diabetes and currently takes glimepiride [...] and has normal B12 and folate level. [employer] Other [id number] Hospital Discharge instructions Patient Education 06/14/2023 09:44:12 [...] include: ?8 oz (237 mL) of milk, rxiptay-nssfobtnyags-wykym milk, and calcium- fortifiedfruit juice. Calcium-fortified means [...] ?Spinach (cooked), rhubarb, beets, sweet potatoes, and Turkish chard. ?Peanuts. ?Potato chips, hungarian fries, and baked potatoes with skin on. ?Nuts and nut products. ?Chocolate. If you regularly take a diuretic medicine, make sure to eat at least 1 or 2 servings of fruits or vegetables that are high in potassium each day. These include: ?Avocado. ?Banana. ?Bypro, prune, carrot, or tomato juice. ?Baked potato. [...] magnesium, fish oil, or vitamin B6. Take wjss-dfe-wjxdfrz and prescription medicines only as told by [...] Casseroles. Pizza. Lasagna. Frozen meals. Potato chips. Surinamese fries. The items listed above may not [...] provider. Document Revised: 09/23/2022 Document Reviewed: 09/23/2022 [employer] Patient Education 2022 Spot formerly [employer]. Follow Up Care 02/04/2023 14:47:08 With:CARLOS OLIVEROS, Ni Garcia, URL Address: [address] [place] [address]- When: Unknown [facility] Tom [id number] Hospital Discharge instructions Patient Education 12/20/2022 16:27:08 [...] Care 12/07/2022 13:42:13 With:Ni OLIVARES Address: [address] [place] [address]- Business (1) When:6 months Comments:Call for followup [...] those arrangements as well.Have a great day. [facility]06-05-2023 Evaluation note* Encounter Date Diagnosis Assessment Notes Treatment Notes Treatment Clinical Notes Nov, Diabetes mellitus with chronic k idney disease (ICD-10 - E11.22) He has gmx-gvyccbx-tnvrlichg type 2 diabetes and currently takes glimepiride [...] and has normal B12 and folate level. [employer] Other 04-13-2023 Hospital Discharge instructions Patient Education [...] Follow these instructions at home: Medicines Take hstp-hwn-daxqgtv and prescription medicines only as told by [...] 07/02/2008 Document Revised: 09/24/2019 Document Reviewed: 05/04/2017 [employer] Patient Education 2019 Spot formerly [employer]. Follow Up Care 09/06/2022 10:38:13 With:Ni OLIVARES Address: [address] [place], [place] [id number] Business (1) When: Unknown Comments:We were able [...] prior to considering any other anesthesia procedures. [facility]04-13-2023 Evaluation + Plan noteExtracted from: Title:KALEN post opAuthor:Timothy Pittman MDDate:10/07/22 Plan Transfer/Discharge: Transfer/Discharge Discharge when meets criteria ( To home ). Extracted from:Title:KALEN GAAuthor:Timothy Pittman MDDate:10/07/22 Plan [place] [employer] Anesthesiologists (ASA) physical status classification: Class III. Anesthetic Preoperative Plan: Anesthesia General. Future Appointments Appointment Date:10/29/2022 08:45:00 AM Scheduled Provider:Milton BRAUN MD Location:[facility] Appointment Type:URO Office Visit [facility]03-22-2023 Evaluation note* Encounter Date Diagnosis Assessment Notes Treatment Notes Treatment Clinical Notes Aug, Diabetes mellitus with chronic k idney disease (ICD-10 - E11.22) He has yaz-swbtanw-ydthahjjw type 2 diabetes and currently takes glimepiride [...] have advised him to adequately hydrate himself. [employer] Other 03-13-2023 Hospital Discharge instructions Patient Education 09/06/2022 10:27:16 Kidney Stones, Xzal-fw-Offe Kidney Stones Kidney stones are rock-like masses [...] Follow these instructions at home: Medicines Take trvh-ghu-oukluaa and prescription medicines only as told by [...] 11/29/2008 Document Revised: 10/30/2019 Document Reviewed: 10/30/2019 [employer] Patient Education 2019 [employer] Follow Up Care 08/17/2022 09:18:37 With:CARLOS OLIVEROS, Ni Garcia, URL Address: [address] [facility] [address] [place] [address]- When: Unknown [facility] 02-19-2023 Discharge summary Author Hiral Interiano [facility] August 15, 2022 1:50pmNote Date/TimeFebruary 2022 1:[address]pm[address] [address] Discharge Summary Signed Patient: Victorino Smyth MR#: [id number] : 1940 Acct:[id number] Age/Sex: 82 / M Adm Date: 3 Loc: 4N Room: 1G0446-[address]: Hiral Interiano MD Copies to: [...] of nephrolithiasis. He initially presented to [facility] ER with complaint of hypoglycemia and was found to have severe renal failure along with metabolic acidosis and hyperkalemia. CT scan at [place] ER showed atrophic left kidney with obstructing stone in the right ureteropelvic junction. Patient was transferred to [facility] for further intervention. On arrival is noted [...] also advised to f ollow-up with his head orthopedic team physician in 4-week. CT scan at [place] ER also showed 0.8 cm nodule on [...] Sodium 140, Potassium 3.8, Chloride 112, Carbon Joofcid47.5 L, Anion Gap 10.3, BUN 45 H, [...] Low-Cholesterol Additional Instructions: Follow-up with your Primary [facility] in 4 weeks. Avoid NSAIDs for pain [...] office on Tuesday to schedule follow-up with [employer]. ) Documented By: Hiral Interiano MD 08/15/22 1017 Signed By: <Electronically signed by Hiral Interiano MD> 08/15/22 0207 [facility] Work Phone: 1(243) 379-493002-19-2023 Progress note Author Alicia León [facility] August 15, 2022 12:01pmNote Date/TimeFebruary 2022 12:01pm[place] [address] Nephrology Progress Note Signed Patient: Victorino Smyth MR#: [id number] : 1940 Acct:[id number] Age/Sex: 82 / M Adm Date: 3 Loc: Room: [address] [place] [address] Type: ADM IN Attending Dr: Hiral Interiano MD Copies to: ~ Date of Service: 08/15/2022 Subjective Subjective Narrative: This is a 82-year-old male with a medical history of coronary artery disease s/pPCI, nephrolithiasis, CKD, diabetes mellitus, hypertension, dyslipidemia was presented to the emergency room of [facility] for generalized weakness and low urine output. On evaluation emergency room patient was found to have a life-threatening hyperkalemia with serum potassium 7 mmol/L, acute kidney injurywith elevated serum creatinine 17.8 mg/dL, metabolic acidosis serum bicarbonate 13.5 mmol/L. He was giveninsulin D50 calcium gluconate in the [place] emergency room. He had a CAT scan abdomen pelvis donewhich showed obstructive kidney stones in the right UPJ and total atrophy of the left kidney. Case was discussed with the on-call urologist Dr. Olivares and recommended patient needs to be n.p.o. for surgical intervention. He was transferred to [facility] for further care. Patient is history ofCKD due to the longstanding DM, HTN and recurrent KELSEA with baseline serum creatinine 1.4 to 1.6 mg/dL. He follows in my office for his CKD care. 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 command Musculoskeletal: No joint [...] 10 Mg Tablet) 10 mg PO DAILY COUNTS INCLUDE 234 BEDS AT THE [facility] Stop: 08/16/23 08:59 Aspirin (Aspirin 81 Mg Tablet.Dr) 81 mg PO DAILY COUNTS INCLUDE 234 BEDS AT THE [facility] Stop: 08/12/23 08:59 Last Admin: 08/15/22 09:45 Dose: 81 mg Atorvastatin Calcium (Atorvastatin 40 Mg Tablet) 40 mg PO HS MAURICIO Stop: 08/11/23 21:59 Last Admin: 08/14/22 21:08 Dose: 40 mg Dextrose (Dextrose 50% In Water 25 Gm/50 Ml Syringe) 0 gm IV-PUSH PRN PRN PRN Reason: Hypoglycemia Stop: 08/11/23 14:01 Doxycycline Hyclate (Doxycycline Hyclate 100 Mg Tablet) 100 mg PO BID COUNTS INCLUDE 234 BEDS AT THE [facility] Stop: 08/18/22 20:59 Last Admin: 08/15/22 [...] HEALTHCARE; Protocol Stop: 08/11/23 16:59 Last Admin: 08/15/22 09:46 Dose: 5 units Insulin Glargine (Insulin Glargine 300 Units/3 Ml Insuln.Pen) 5 units SUBCUT DAILY COUNTS INCLUDE 234 BEDS AT THE [facility] Stop: 08/13/23 08:59 Last Admin: 08/15/22 09:47 Dose: 5 units Melatonin (Melatonin 5 Mg Tablet) 5 mg PO QHS PRN PRN Reason: insomnia Stop: 08/14/23 21:59 Last Admin: 08/14/22 21:08 Dose: 5 mg Metoprolol Tartrate (Metoprolol Tartrate 50 Mg Tablet) 50 mg PO BID COUNTS INCLUDE 234 BEDS AT THE [facility] Stop: 08/11/23 20:59 Last Admin: 08/15/22 [...] urination hecan call office. Documented By: Alicia León MD 08/15/22 1158 Signed By: <Electronically signed by Alicia León MD> 08/15/22 1201 [facility] Work Phone: 1(161) 714-238702-19-2023 Progress note Author Cade Alvarez [facility] August 15, 2022 11:31amNote Date/TimeFebruary 2022 11:31am[place] [address] Cardiology Progress Note Signed Patient: Victorino Smyth MR#: [id number] : 1940 Acct:[id number] Age/Sex: 82 / M Adm Date: 3 Loc: 4N Room: [address] [place] [address] Type: ADM IN Attending Dr: Hiral Interiano [...] patient has cardiology follow-up with his primary head orthopedic team physician in [place] within 4 weeks of discharge. (2) CAD (coronary artery disease): Code(s): I25.10 - Atherosclerotic heart disease of twenty-nine palms coronary artery without angina pectoris Status: Acute [...] Cade Alvarez MD> 08/15/22 1131 [facility] Work Phone: 1(854) 932-617202-18-2023 Progress note Author Hiral Interaino [facility] August 14, 2022 2:57pmNote Date/TimeFebruary 2022 2:49pm[place] [address] Hospitalist Progress Note Signed Patient: Victorino Smyth MR#: [id number] : 1940 Acct:[id number] Age/Sex: 82 / M Adm Date: 3 Loc: 4N Room: 5Z3118-5 Type: ADM IN Attending Dr: Hiral Interiano [...] Vial SUBCUT 08/12/23 21:59 Not Given Q8HR COUNTS INCLUDE 234 BEDS AT THE [facility] Hydralazine HCl 10 mg 08/11/22 13:41 [...] Insuln.Pen SUBCUT 08/11/23 16:59 Not Given TID.WM.HS COUNTS INCLUDE 234 BEDS AT THE [facility] Protocol Insulin Glargine 5 units 08/13/22 [...] <Electronically signed by Hiral Interiano MD> 08/14/22 0415 [facility] Work Phone: 1(539) 731-954702-18-2023 Progress note Author Alicia León [facility] August 14, 2022 11:55amNote Date/TimeFebruary 2022 11:55am[place] [address] Nephrology Progress Note Signed Patient: Victorino Smyth MR#: [id number] : 1940 Acct:[id number] Age/Sex: 82 / M Adm Date: 3 Loc: Room: [address] [place] [address] Type: ADM IN Attending Dr: Hiral Interiano MD Copies to: ~ Date of Service: 08/14/2022 Subjective Subjective Narrative: This is a 82-year-old male with a medical history of coronary artery disease s/pPCI, nephrolithiasis, CKD, diabetes mellitus, hypertension, dyslipidemia was presented to the emergency room of [facility] for generalized weakness and low urine output. On evaluation emergency room patient was found to have a life-threatening hyperkalemia with serum potassium 7 mmol/L, acute kidney injurywith elevated serum creatinine 17.8 mg/dL, metabolic acidosis serum bicarbonate 13.5 mmol/L. He was giveninsulin D50 calcium gluconate in the [place] emergency room. He had a CAT scan abdomen pelvis donewhich showed obstructive kidney stones in the right UPJ and total atrophy of the left kidney. Case was discussed with the on-call urologist Dr. Olivares and recommended patient needs to be n.p.o. for surgical intervention. He was transferred to [facility] for further care. Patient is history ofCKD due to the longstanding DM, HTN and recurrent KELSEA with baseline serum creatinine 1.4 to 1.6 mg/dL. He follows in my office for his CKD care. 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 command Musculoskeletal: No joint [...] 100 Mg Tablet) 100 mg PO BID COUNTS INCLUDE 234 BEDS AT THE [facility] Stop: 08/18/22 20:59 Last Admin: 08/14/22 [...] 5,000 Unit/Ml Vial) 5,000 unit SUBCUT Q8HR COUNTS INCLUDE 234 BEDS AT THE [facility] Stop: 08/12/23 21:59 Last Admin: 08/14/22 06:05 Dose: Not Given Hydralazine HCl (Hydralazine 20 Mg/Ml Vial) 10 mg IV-PUSH Q4H PRN PRN Reason: Hypertension Stop: 08/11/23 13:40 Last Admin: 08/14/22 05:44 Dose: 10 mg Ceftriaxone Sodium (Rocephin) 1 gm in 50 mls @ 100 mls/hr IV Q24H COUNTS INCLUDE 234 BEDS AT THE [facility] Stop: 08/14/22 14:14 Last Admin: 08/13/22 15:07 Dose: 100 mls/hr Sodium Chloride (0.9% Sodium Chloride 1,000 Ml) 1,000 mls @ 0 mls/hr MISCELLANE.Q0M PRN PRN Reason: Dialysis Stop: 08/11/23 14:19 Last Infusion: 08/12/22 12:38 Dose: Infused Insulin Aspart (Insulin Aspart 300 Units/3 Ml Insuln.Pen) 0 units SUBCUT TID.WM.[facility]; Protocol Stop: 08/11/23 16:59 Last Admin: 08/14/22 11:50 Dose: Not Given Insulin Glargine (Insulin Glargine 300 Units/3 Ml Insuln.Pen) 5 units SUBCUT DAILY COUNTS INCLUDE 234 BEDS AT THE [facility] Stop: 08/13/23 08:59 Last Admin: 08/13/22 08:45 Dose: Not Given Metoprolol Tartrate (Metoprolol Tartrate 50 Mg Tablet) 50 mg PO BID COUNTS INCLUDE 234 BEDS AT THE [facility] Stop: 08/11/23 20:59 Last Admin: 08/14/22 [...] Perez Jr., D.O.08/13/2022 2:25 PM Dictation Location: [place] [address] Any impression(s) listed above is documentation that [...] signed by Alicia León MD> 08/14/22 1155 [facility] Work Phone: 1([phone]) 540-657002-18-2023 Progress note Author Cade Antonio [facility] August 14, 2022 11:21amNote Date/TimeFebruary 2022 11:21[place] [id number] Cardiology Progress Note Signed Patient: Victorino Smyth MR#: [id number] : 1940 Acct:[id number] Age/Sex: 82 / M Adm Date: 3 Loc: 4N Room: [address] [place] [address] Type: ADM IN Attending Dr: Hiral Interiano [...] % (Auto) 79.6 Lymph % (Auto) 7.8 [place] % (Auto) 11.4 Eos % (Auto) 1.0 Baso % (Auto) 0.2 Nucleat RBC Rel Count 0.1 Neut # (Auto) 5.9 Lymph # (Auto) 0.6 L [place] # (Auto) 0.8 Eos # (Auto) 0.1 [...] MPV Neut % (Auto) Lymph % (Auto) [place] % (Auto) Eos % (Auto) Baso % (Auto) Nucleat RBC Rel Count Neut # (Auto) Lymph # (Auto) [place] # (Auto) Eos # (Auto) Baso # [...] sure that he has follow-up in [facility] within 4 weeks of discharge. (2) CAD (coronary artery disease): Assessment/Problem Details: Stable/quiescent. No ischemic complications with yesterday's urological procedure. Code(s): I25.10 - Atherosclerotic heart disease of twenty-nine [place] coronary artery without angina pectoris Status: Acute [...] Cade Alvarez MD> 08/14/22 1121 [facility] Work Phone: 1(877) 829-311402-17-2023 Progress note Author Hiral Interiano [facility] August 13, 2022 3:09pmNote Date/TimeFebruary 2022 3:02pmBrad[place] [address] Hospitalist Progress Note Signed Patient: Victorino Smyth MR#: [id number] : 1940 Acct:[id number] Age/Sex: 82 / M Adm Date: 3 Loc: 4N Room: 6Y9036-8 Type: ADM IN Attending Dr: Hiral Interiano [...] Insuln.Pen SUBCUT 08/11/23 16:59 Not Given TID.WM.HS COUNTS INCLUDE 234 BEDS AT THE [facility] Protocol Insulin Glargine 5 units 08/13/22 [...] signed by Hiral Interiano MD> 08/13/22 1509 [facility] Work Phone: 1(128) 606-898702-17-2023 Progress note Author Alicia León [facility] August 13, 2022 11:29amNote Date/TimeFebruary 2022 11:25[place], [place] [address] Nephrology Progress Note Signed Patient: Victorino Smyth MR#: [id number] : 1940 Acct:[id number] Age/Sex: 82 / M Adm Date: 3 Loc: Room: 7Q7002-6 Type: ADM IN Attending Dr: Hiral Interiano MD Copies to: ~ Date of Service: 08/13/2022 Subjective Subjective Narrative: This is a 82-year-old male with a medical history of coronary artery disease s/pPCI, nephrolithiasis, CKD, diabetes mellitus, hypertension, dyslipidemia was presented to the emergency room of [facility] for generalized weakness and low urine output. On evaluation emergency room patient was found to have a life-threatening hyperkalemia with serum potassium 7 mmol/L, acute kidney injurywith elevated serum creatinine 17.8 mg/dL, metabolic acidosis serum bicarbonate 13.5 mmol/L. He was giveninsulin D50 calcium gluconate in the [place] emergency room. He had a CAT scan abdomen pelvis donewhich showed obstructive kidney stones in the right UPJ and total atrophy of the left kidney. Case was discussed with the on-call urologist Dr. Olivares and recommended patient needs to be n.p.o. for surgical intervention. He was transferred to [facility] for further care. Patient is history ofCKD due to the longstanding DM, HTN and recurrent KELSEA with baseline serum creatinine 1.4 to 1.6 mg/dL. He follows in my office for his CKD care. 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 command Musculoskeletal: No joint [...] 81 Mg Tablet.Dr) 81 mg PO DAILY COUNTS INCLUDE 234 BEDS AT THE [facility] Stop: 08/12/23 08:59 Last Admin: 08/13/22 08:44 Dose: Not Given Atorvastatin Calcium (Atorvastatin 40 Mg Tablet) 40 mg PO HS COUNTS INCLUDE 234 BEDS AT THE [facility] Stop: 08/11/23 21:59 Last Admin: 08/12/22 21:07 Dose: 40 mg Dextrose (Dextrose 50% In Water 25 Gm/50 Ml Syringe) 0 gm IV-PUSH PRN PRN PRN Reason: Hypoglycemia Stop: 08/11/23 14:01 Glucose (Dextrose 40% Gel 15 Gm Tube) 0 gm PO PRN PRN PRN Reason: Hypoglycemia Stop: 08/11/23 14:01 Guaifenesin (Guaifenesin 600 Mg Tab.Er.12h) 1,200 mg PO BID COUNTS INCLUDE 234 BEDS AT THE [facility] Stop: 08/12/23 20:59 Last Admin: 08/13/22 [...] 50 mls @ 100 mls/hr IV Q24H COUNTS INCLUDE 234 BEDS AT THE [facility] Last Admin: 08/12/22 16:24 Dose: 100 mls/hr Azithromycin (Zithromax) 500 mg in 250 mls @ 250 mls/hr IV Q24H COUNTS INCLUDE 234 BEDS AT THE [facility] Last Admin: 08/12/22 15:06 Dose: 250 mls/hr Sodium Chloride (0.9% Sodium Chloride 1,000 Ml) 1,000 mls @ 0 mls/hr MISCELLANE.Q0M PRN PRN Reason: Dialysis Stop: 08/11/23 14:19 Last Infusion: 08/12/22 12:38 Dose: Infused Insulin Aspart (Insulin Aspart 300 Units/3 Ml Insuln.Pen) 0 units SUBCUT TID.WM.HS COUNTS INCLUDE 234 BEDS AT THE [facility]; Protocol Stop: 08/11/23 16:59 Last Admin: 08/13/22 08:44 Dose: Not Given Insulin Glargine (Insulin Glargine 300 Units/3 Ml Insuln.Pen) 5 units SUBCUT DAILY COUNTS INCLUDE 234 BEDS AT THE [facility] Stop: 08/13/23 08:59 Last Admin: 08/13/22 08:45 Dose: Not Given Metoprolol Tartrate (Metoprolol Tartrate 50 Mg Tablet) 50 mg PO BID COUNTS INCLUDE 234 BEDS AT THE [facility] Stop: 08/11/23 20:59 Last Admin: 08/13/22 [...] signed by Alicia León MD> 08/13/22 1129 [facility] Work Phone: 1(102) 518-176702-17-2023 Progress note Author Cade Alvarez [facility] August 13, 2022 9:40amNote Date/TimeFebruary 2022 9:35[place], [place] [address] Cardiology Progress Note Signed Patient: Victorino Smyth MR#: [id number] : 1940 Acct:[id number] Age/Sex: 82 / M Adm Date: 3 Loc: Room: [address] [place] [address] Type: ADM IN Attending Dr: Hiral Interiano [...] MPV Neut % (Auto) Lymph % (Auto) [place] % (Auto) Eos % (Auto) Baso % (Auto) Nucleat RBC Rel Count Neut # (Auto) Lymph # (Auto) [place] # (Auto) Eos # (Auto) Baso # [...] RNA (PCR) IU/mL N/A HCV RNA PCR cop examiner log10 N/A Hepatitis C Interp 08/12/22 08/12/22 08/13/22 19:37 21:06 04:28 Corrected WBC 9.9 Uncorrected WBC Count 9.9 RBC 3.54 L Hgb 11.6 L Hct 34.2 L MCV 96.5 MCH 32.9 MCHC 34.1 RDW 13.7 Plt Count 129 L MPV 8.7 Neut % (Auto) 79.2 Lymph % (Auto) 9.6 [place] % (Auto) 9.8 Eos % (Auto) 0.9 Baso % (Auto) 0.5 Nucleat RBC Rel Count 0.1 Neut # (Auto) 7.8 H Lymph # (Auto) 0.9 L [place] # (Auto) 1.0 H Eos # (Auto) [...] HCV RNA (PCR) IU/mL HCV RNA PCR cop examiner log10 Hepatitis C Interp 08/13/22 08/13/22 04:28 05:25 Corrected WBC Uncorrected WBC Count RBC Hgb Hct MCV MCH MCHC RDW Plt Count MPV Neut % (Auto) Lymph % (Auto) [place] % (Auto) Eos % (Auto) Baso % (Auto) Nucleat RBC Rel Count Neut # (Auto) Lymph # (Auto) [place] # (Auto) Eos # (Auto) Baso # [...] HCV RNA (PCR) IU/mL HCV RNA PCR cop examiner log10 Hepatitis C Interp A&P - Cardiology [...] Code(s): I25.10 - Atherosclerotic heart disease of twenty-[place] coronary artery without angina pectoris Status: Acute Plan: Preoperative recommendations as above. Plan Thank you very much for this kind consultation and for allowing us to participate in the care of this very pleasant patient Time spent with patient Time Spent With Patient (min): 30 Documented By: Cade Alvarez MD 08/13/2240 Signed By: <Electronically signed by Cade Alvarez MD> 08/13/22939 [facility] Work Phone: 1(307) 849-986002-16-2023 Progress note Author Hiral Interiano [facility] August 12, 2022 4:04pmNote Date/TimeFebruary 2022 4:04pm[place] [address] Hospitalist Progress Note Signed Patient: Victorino Smyth MR#: [id number] : 1940 Acct:[id number] Age/Sex: 82 / M Adm Date: 3 Loc: Room: [address] [place] [address] Type: ADM IN Attending Dr: Hiral Interiano [...] kidney disease: Plan: Patient was transferred from [place] ER when found to have acute kidney [...] <Electronically signed by Hiral Interiano MD> 08/12/22 8944 [facility] Work Phone: 1(768) 855-470602-16-2023 Progress note Author Alicia León [facility] [facility] August 12, 2022 11:29amNote Date/TimeFebruary 2022 11:24[place], [place] [address] Nephrology Progress Note Signed Patient: Victorino Smyth MR#: [id number] : 1940 Acct:[id number] Age/Sex: 82 / M Adm Date: 3 Loc: Room: [address] [place] [address] Type: ADM IN Attending Dr: Hiral Interiano MD Copies to: ~ Date of Service: 08/12/2022 Subjective Subjective Narrative: This is a 82-year-old male with a medical history of coronary artery disease s/pPCI, nephrolithiasis, CKD, diabetes mellitus, hypertension, dyslipidemia was presented to the emergency room of [facility] for generalized weakness and low urine output. On evaluation emergency room patient was found to have a life-threatening hyperkalemia with serum potassium 7 mmol/L, acute kidney injurywith elevated serum creatinine 17.8 mg/dL, metabolic acidosis serum bicarbonate 13.5 mmol/L. He was giveninsulin D50 calcium gluconate in the [place] emergency room. He had a CAT scan abdomen pelvis donewhich showed obstructive kidney stones in the right UPJ and total atrophy of the left kidney. Case was discussed with the on-call urologist Dr. Olivares and recommended patient needs to be n.p.o. for surgical intervention. He was transferred to [facility] for further care. Patient is history ofCKD due to the longstanding DM, HTN and recurrent KELSEA with baseline serum creatinine 1.4 to 1.6 mg/dL. He follows in my office for his CKD care. 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 command Musculoskeletal: No joint [...] 40 Mg Tablet) 40 mg PO HS COUNTS INCLUDE 234 BEDS AT THE [facility] Stop: 08/11/23 21:59 Last Admin: 08/11/22 [...] 50 mls @ 100 mls/hr IV Q24H COUNTS INCLUDE 234 BEDS AT THE [facility] Last Infusion: 08/11/22 21:49 Dose: Infused Azithromycin (Zithromax) 500 mg in 250 mls @ 250 mls/hr IV Q24H COUNTS INCLUDE 234 BEDS AT THE [facility] Last Admin: 08/11/22 16:00 Dose: 250 [...] 50 Mg Tablet) 50 mg PO BID COUNTS INCLUDE 234 BEDS AT THE [facility] Stop: 08/11/23 20:59 Last Admin: 08/12/22 [...] Rehan Fuentes M.D.08/11/2022 4:10 PM Dictation Location: [place] [address] Any impression(s) listed above is documentation that [...] <Electronically signed by Alicia León MD> 08/12/22 [facility]9 [facility] Work Phone: 1(625) 909-960702-16-2023 Progress note Author Cade Alvarez [facility] August 12, 2022 10:04amNote Date/TimeFebruary 2022 10:05[place], [place] [address] Cardiology Progress Note Signed Patient: Victorino Smyth MR#: [id number] : 1940 Acct:[id number] Age/Sex: 82 / M Adm Date: 3 Loc: Room: [address] [place] [address] Type: ADM IN Attending Dr: Hiral Interiano [...] % (Auto) N/A Lymph % (Auto) N/A [place] % (Auto) N/A Eos % (Auto) N/A Baso % (Auto) N/A Nucleat RBC Rel Count N/A Neut # (Auto) N/A Lymph # (Auto) N/A [place] # (Auto) N/A Eos # (Auto) N/A [...] MPV Neut % (Auto) Lymph % (Auto) [place] % (Auto) Eos % (Auto) Baso % (Auto) Nucleat RBC Rel Count Neut # (Auto) Lymph # (Auto) [place] # (Auto) Eos # (Auto) Baso # [...] MPV Neut % (Auto) Lymph % (Auto) [place] % (Auto) Eos % (Auto) Baso % (Auto) Nucleat RBC Rel Count Neut # (Auto) Lymph # (Auto) [place] # (Auto) Eos # (Auto) Baso # [...] % (Auto) 88.0 Lymph % (Auto) 4.4 [place] % (Auto) 7.4 Eos % (Auto) 0.0 Baso % (Auto) 0.2 Nucleat RBC Rel Count 0.0 Neut # (Auto) 11.8 H Lymph # (Auto) 0.6 L [place] # (Auto) 1.0 H Eos # (Auto) [...] MPV Neut % (Auto) Lymph % (Auto) [place] % (Auto) Eos % (Auto) Baso % (Auto) Nucleat RBC Rel Count Neut # (Auto) Lymph # (Auto) [place] # (Auto) Eos # (Auto) Baso # [...] Code(s): I25.10 - Atherosclerotic heart disease of twenty-nine palms coronary artery without angina pectoris Status: Acute Plan: Preoperative recommendations as above. Plan Thank you very much for this kind consultation and for allowing us to participate in the care of this very pleasant patient Time spent with patient Time Spent With Patient (min): 30 Documented By: Cade Alvarez MD 08/12/22 0959 Signed By: <Electronically signed by Cade Alvarez MD> 08/12/22 1006 [facility] Work Phone: 1([phone]) 910-396202-15-2023 Consult note Author Alicia León [facility] August 11, 2022 5:46pmNote Date/TimeFebruary 2022 4:00[place] [address] Nephrology Consult Note Signed with Nancy Patient: Victorino Smyth MR#: [id number] : 1940 Acct:[id number] Age/Sex: 82 / M Adm Date: 3 Loc: Room: 3R1693-6 Type: ADM IN Attending Dr: Hiral Interiano [...] presented to the emergency room of [facility] for generalized weakness and low urine output. On evaluation emergency room patient was found to have a life-threatening hyperkalemia with serum potassium 7 mmol/L, acute kidney injurywith elevated serum creatinine 17.8 mg/dL, metabolic acidosis serum bicarbonate 13.5 mmol/L. He was giveninsulin D50 calcium gluconate in the [place] emergency room. He had a CAT scan abdomen pelvis donewhich showed obstructive kidney stones in the right UPJ and total atrophy of the left kidney. Case was discussed with the on-call urologist Dr. Olivares and recommended patient needs to be n.p.o. for surgical intervention. He was transferred to [facility] for further care. Patient is history ofCKD due to the longstanding DM, HTN and recurrent KELSEA with baseline serum creatinine 1.4 to 1.6 mg/dL. He follows in my office for his CKD care. 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 I consulted the lithographing machine operator for hemodialysis catheter placement which [...] team. Documented By: Alicia León MD 08/11/22 0669 Signed By: <Electronically signed by Alicia León MD> 08/11/22 5295 [facility] Work Phone: 1(350) 433-172602-15-2023 Consult note Author Cade Alvarez [facility] August 11, 2022 4:47pmNote Date/TimeFebruary 2022 4:36pm[place] [address] Cardiology Consult Note Signed Patient: Victorino Smyth MR#: [id number] : 1940 Acct:[id number] Age/Sex: 82 / M Adm Date: 3 Loc: Room: [address] [place] [address] Type: ADM IN Attending Dr: Hiral Interiano [...] syndrome in 2017. Patient initially presented to [place] emergency department complaining of shortness of breath [...] # (Auto) N/A Lymph # (Auto) N/A [place] # (Auto) N/A Eos # (Auto) N/A [...] nonspecific abnormality, ST segment, and/or T wave IN, pacemaker, normal Normal tracing: no change compared [...] Code(s): I25.10 - Atherosclerotic heart disease of twenty-nine palms coronary artery without angina pectoris Plan Thank you very much for this kind consultation and for allowing us to participate in the care of this very pleasant patient Documented By: Cade Alvarez MD 08/11/22 1633 Signed By: <Electronically signed by Cade Alvarez MD> 08/11/22 1647 [facility] Work Phone: [phone]) 848-968002-15-2023 Consult note Author Ni Olivares [facility] August 11, 2022 3:24pmNote Date/TimeFebruary 2022 3:24pm[place] [address] Urology Consult Note Signed Patient: Victorino Smyth MR#: [id number] : 1940 Acct:[id number] Age/Sex: 82 / M Adm Date: 3 Loc: Room: [address] [place] [address] Type: ADM IN Attending Dr: Hiral Interiano MD Copies to: MD Ni James MD Mazhar Rahman, MD~ History of Present Illness Consult Details Consult Date: 08/11/2022 Requesting Provider: Hiral Interiano MD HPI: Mr. Smyth is an 82-year-old man transferred from the [facility] earliertoday. The patient presented with some diffuse [...] the emergency room prior to transfer to [facility]. He finished breakfast at about 11 [...] P documented [facility] Interiano earlier [facility]?: Yes Medical History [...] % (Auto) N/A, Lymph % (Auto) N/A, [place] % (Auto) N/A, Eos % (Auto) N/A, Baso % (Auto) N/A, Nucleat RBC Rel Count N/A, Neut # (Auto) N/A, Lymph # (Auto) N/A, [place] # (Auto) N/A, Eos # (Auto) N/A, [...] worse than that noted at the [facility] at a current level of 7.4. Due [...] indicated. Documented By: Ni Olivares MD 08/11/22 1511 Signed By: <Electronically signed by MD Ni Olivares> 08/11/22 3950 [facility] Work Phone: 1(148) 701-248602-15-2023 History and physical note Author Hiral Interiano [facility] August 11, 2022 2:02pmNote Date/TimeFebruary 2022 2:02pmTim[place] [id number] Hospitalist H&P Signed Patient: Victorino Smyth MR#: [id number] : 1940 Acct:[id number] Age/Sex: 82 / M Adm Date: 3 Loc: Room: [address] [place] [address] Type: ADM IN Attending Dr: Hiral Interiano [...] nephrolithiasis. Patient has been transferred from [facility] ER for acute kidney injury and obstructing [...] repeated labs available in the record from [facility]. Chest x- ray read as mild bilateral [...] a similar feeling when he had an IN in 2017 and prior to that in [...] negative unless noted below or in HPI [facility] Medical History (Updated 08/11/22 @ 13:59 [...] type 2. He has been transferred from [facility] for obstructive uropathy with worsening renal failure and hyperkalemia. I was informed the patient was given cocktail for hyperkalemia with no repeated labs available in the record. Patient arrival to floor complaining of midsternal discomfort and mentioned having similar feeling when he had an IN. Does appear tachypneic likely from metabolic acidosis. [...] <Electronically signed by Hiral Interiano MD> 08/11/22 1404 [facility] Work Phone: [phone]) 454-814602-15-2023 [facility] Evaluation note* Encounter Date Diagnosis Assessment Notes Treatment Notes Treatment Clinical Notes May, Diabetes mellitus with chronic k idney disease (ICD-10 - E11.22) He has oeo-cjzocbr-kgtxdwusr type 2 diabetes and currently takes glimepiride [...] to slow down the progression of disease. Ramona explained the potential risk of the worsening [...] have advised him to adequately hydrate himself. [employer] Other 08-11-2022 NotePROCEDURE: XR KNEE LT 4V or > COMPARISON: None. HISTORY: Pain of left knee joint FINDINGS: BONES:No acute fracture or dislocation. Minimal degenerative changes. SOFT TISSUES:Negative. No visible soft tissue swelling. EFFUSION:None visible. OTHER: Vascular calcification IMPRESSION: No acute abnormality Electronically authenticated by: TYLER MONSIVAIS Date: 2022-02-04 07:23[facility]05-31-2022 Evaluation note* Encounter Date Diagnosis Assessment Notes Treatment Notes Treatment Clinical Notes October, Diabetes mellitus with chronic k idney disease (ICD-10 - E11.22) He has vdp-djfttkq-szicfemnl type 2 diabetes and currently takes glimepiride [...] have advised him to adequately hydrate himself. [employer] Other 05-02-2022 Hospital Discharge instructions Follow Up Care 10/26/2021 10:06:54 With:KADE OLIVEROS, Milton Brewer, URL Address: [address] [place] [address] [place] [address]- When: Unknown [facility] Charito 05-02-2022 Hospital Discharge instructions Patient [...] 06/13/2006 Document Revised: 03/02/2019 Document Reviewed: 05/13/2017 [employer] Patient Education 2020 [employer]. 10/26/2021 09:44:44 Urinary Frequency, Adult Urinary Frequency, [...] to keep your urine pale yellow. ?Take mcmh-ypf-gnjkacv or prescription medicines. ?Eat foods that are high in fiber, such as beans, whole grains, and fresh fruits and vegetables. ?Limit foods that are high in fat and processed sugars, such as fried or sweet foods. General instructions Take nryi-wgr-agxchim and prescription medicines only as told by [...] the muscles that help control urination. Take pblb-omr-zovpcrp and prescription medicines only as told by your health care provider. Contact a health care provider if your symptoms do not improve or get worse. This information is not intended to replace advice given to you by your health care provider. Make sure you discuss any questions you have with your health care provider. Document Released: 04/09/2010 Document Revised: 12/21/2018 Document Reviewed: 12/21/2018 [employer] Patient Education 2020 [employer] formerly [employer]. 10/26/2021 09:44:41 Kidney Stones, Tenh-vc-Qvvh Kidney Stones Kidney stones are rock-like masses [...] Follow these instructions at home: Medicines Take fztb-htz-retypyf and prescription medicines only as told by [...] Document Reviewed: 10/30/2019 Elsevier Patient Education 2020 [employer] Follow Up Care 02/23/2021 14:09:11 With:KADE OLIVEROS, BHUPINDER Rose Address: [facility] [address] , [place] [address]- When:10/26/2022 [facility] 11-30-2021 Evaluation note* Encounter Date Diagnosis Assessment Notes Treatment Notes Treatment Clinical Notes Apr, Diabetes mellitus with chronic k idney disease (ICD-10 - E11.22) He has nhs-ljhiiyp-kviwgsfte type 2 diabetes and currently takes glimepiride [...] have advised him to adequately hydrate himself. [employer] Other Evaluation + Plan note Future Appointments Appointment Date:10/29/2022 08:45:00 AM Scheduled Provider:Milton BRAUN MD Location:[facility] Appointment Type:URO Office Visit [facility] evaluation + Plan note Future Appointments Appointment Date:09/14/2022 07:30:00 AM Scheduled Provider: Location:[facility] Appointment Type:Surgical PAT FT Appointment Date:10/07/2022 12:00:00 PM Scheduled Provider: Location:[facility] Appointment Type:Surgery FT Appointment Date:10/29/2022 08:45:00 AM Scheduled Provider:Milton BRAUN MD Location:[facility] Appointment Type:URO Office Visit [facility] evaluation + Plan note Future Appointments Appointment Date:11/18/2022 10:30:00 AM Scheduled Provider: Location:[facility] Appointment Type:Surgical PAT FT Appointment Date:12/02/2022 11:45:00 AM Scheduled Provider: Location:[facility] Appointment Type:Surgery FT [facility] evaluation + Plan note Future Appointments Appointment Date:06/12/2024 11:00:00 AM Scheduled Provider:Ni OLIVARES MD Location:[facility] Appointment Type:URO Office Visit Future Scheduled Tests Laboratory* Total Protein 24 Hour Urine 02/14/23 [facility] evaluation + Plan note Future Appointments Appointment Date:12/10/2024 11:15:00 AM Scheduled Provider:Ni OLIVARES MD Location:[facility] Appointment Type:URO Office Visit Diagnostic Tests Pending * PSA Total 06/12/24 [facility] evaluation + Plan note Future Appointments Appointment Date:06/11/2025 10:00:00 AM Scheduled Provider:Ni OLIVARES MD Location:[facility] Appointment Type:URO Office Visit Diagnostic Tests Pending * PSA Free & Total 12/10/24 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 christa kidney disease acuteAcute kidney insufficiencyacuteCAD (coronary artery disease)acuteCKD (chronic kidney disease) stage 3, GFR 30-59 ml/minacuteElevated PSAacute Hydronephrosis with ureteral qqkdbymds[id number] acuteLeft renal atrophyacuteMetabolic acidosisacuteObstructive nephropathyacute Preoperative cardiovascular examinationacuteRight ureteral stoneacuteType 2 diabetes mellitus with diabetic chronic kidney diseaseacuteDiabeteschronic [facility] Work Phone: Evaluation noteNo assessment information available [facility] Work Phone: Evaluation note* Diagnosis Onset Date Resolution Status Secondary hyperparathyroidism acuteCKD (chronic kidney disease) stage 3, GFR 30-59 ml/minchronic [id number] renal atrophychronicMetabolic acidosischronicType 2 diabetes mellitus with diabetic chronic kidney diseasechronic [facility] Work Phone: Evaluation note* Diagnosis Onset Date Resolution Status Admit Date Hyperuricemia acuteJune 2024 2:13pmNephrolithiasisacuteJune 2024 2:13pmSecondary hyperparathyroidismacuteJune 2024 2:13pmCKD (chronic kidney disease) stage 3, GFR 30-59 ml/minchronicJune 2024 2:13pmHyperlipidemiachronicJune 2024 2:13pmHypertensive chronic kidney disease with stage 1 through stage 4 chronic kichronicJune 2024 2:13pmLeft renal atrophychronicJune 2024 2:13pmType 2 diabetes mellitus with diabetic chronic kidney diseasechronicJune 2024 2:13pm [facility] Work Phone: History general Narrative - Reported* Type Description Date Medical History DIABETES MELLITUS Medical HistoryCORONARY ARTERY DISEASEMedical HistoryMORBID OSESITYSurgical HistoryHERNEA LOWER RIGHT ABDOMINALSurgical HistoryHEART ATTACK WITH STENT PLACEMENT IN THE LADSurgical HistoryKIDNEY STENTS X 2Surgical HistoryPROSTRATE BIO PADSurgical HistoryKIDNEY STENTS R2Qhtslmfu HistoryKIDNEY STONE REMOVAL Hospitalization HistorySEE ABOVE [employer] Other History general Narrative - Reported* Type Description Date Medical History DIABETES MELLITUS Medical HistoryCORONARY ARTERY DISEASEMedical HistoryMORBID OSESITYMedical HistoryHYPERTENSIONMedical HistoryCHRONIC KIDNEY DISEASE STAGE 3Medical History ANEMIA OF RENAL DISEASESurgical HistoryHERNEA LOWER RIGHT ABDOMINALSurgical HistoryHEART ATTACK WITH STENT PLACEMENT IN THE LADSurgical HistoryKIDNEY STENTS X 2Surgical HistoryPROSTRATE BIO PADSurgical HistoryKIDNEY STENTS G5Zjctvbaz HistoryKIDNEY STONE REMOVALHospitalization HistorySEE ABOVE [employer] Other History general Narrative - Reported* Type Description Date Medical History DIABETES MELLITUS Medical HistoryCORONARY ARTERY DISEASEMedical HistoryMORBID OSESITYMedical HistoryHYPERTENSIONMedical HistoryCHRONIC KIDNEY DISEASE STAGE 3Medical History ANEMIA OF RENAL DISEASEMedical HistoryKNEE ARTHRITISSurgical HistoryHERNEA LOWER RIGHT ABDOMINALSurgical HistoryHEART ATTACK WITH STENT PLACEMENT IN THE LAD Surgical HistoryKIDNEY STENTS X 2Surgical HistoryPROSTRATE BIO PADSurgical HistoryKIDNEY STENTS B1Loknssky HistoryKIDNEY STONE REMOVALHospitalization HistorySEE ABOVE [employer] Other History general Narrative - Reported* Type [...] X 2Surgical HistoryPROSTRATE BIO PADSurgical HistoryKIDNEY STENTS S3Mgxiehhg HistoryKIDNEY STONE REMOVALHospitalization HistorySEE ABOVEHospitalization HistoryAKI, HYPERKALEMIA, METABOLIC ACIDOSIS 08/11/2022 [employer] Other Hospital course Narrative No data available for this section [facility] Additional Instructions Follow-up with your [facility] in 4 weeks. Avoid NSAIDs for pain control. Call [facility] on Tuesday at [phone] to arrange a follow up CT scan regarding lung nodule in 4 weeks. Maintain occlussive dressing to HD catheter removal site for 48 hours - return to the Emergency Room for oozing or drainage from catheter exit site, noticeable swelling or itching around neck, shortness of breath, [facility] Work Phone: Hospital Discharge instructions No data available for this section [facility] Progress note No data available for this section [facility] Tom Chief Complaint and Reason for Visit Chief Complaint ACUTE RENAL FAILURE Reason for Visit Acute kidney injury superimposed on chronic kidney disease Acute kidney insufficiency CAD (coronary artery disease) CKD (chronic kidney disease) stage 3, GFR 30-59 ml/min Elevated PSA Hydronephrosis with ureteral calculus Hyperkalemia [id number] Left renal atrophy Metabolic acidosis Obstructive nephropathy Preoperative cardiovascular examination Right ureteral stone Type 2 diabetes mellitus with diabetic chronic kidney disease Diabetes Chief Complaint n20.0 Chief Complaint n20.0 N40.1 Chief Complaint n20.0 N40.1 N20.0 Chief Complaint Unknown Chief Complaint Unknown RENAL 6 month f/uReason for VisitSecondary hyperparathyroidism CKD (chronic kidney disease) stage 3, GFR 30-59 ml/min [id number] Left renal atrophy Metabolic acidosis Type 2 [...] Kiser MD Other ProviderActiveCarol Thang Tamayo , DEWAXER-BCOther ProviderActiveAaliyah Mitchell MDOther ProviderActiveAlicia León MDOther ProviderActivePatrick [...] DateEnd Date Jose Alfaro MD PCP - [facility]09/12/23Team MemberRelationshipSpecialtyStart DateEnd Date Jose Alfaro MD PCP - [facility]09/12/23 (unrecognized sect ion and content) No Status Records FoundNo Status Records FoundNo Status Records FoundNo Status Records FoundNo Status Records FoundNo Status Records FoundNo Status Records Found INFORMATION SOURCE (unrecogn ized section and content) DATE CREATED AUTHOR 10/03/2022 [facility] DATE CREATED AUTHOR AUTHOR'S ORGANIZ ATION 12/07/[address] [facility] DATE CREATED AUTHOR AUTHOR'S ORGANIZ ATION 10/27/2023 [facility] DATE CREATED AUTHOR AUTHOR'S ORGANIZ ATION 12/21/2023 [facility] DATE CREATED AUTHOR AUTHOR'S ORGANIZ ATION 12/12/2024 [facility] DATE CREATED AUTHOR AUTHOR'S ORGANIZ ATION 12/17/2024 [facility] DATE CREATED AUTHOR AUTHOR'S ORGANIZ ATION 03/06/2025 [facility] Goals (unrecognized section and content) Goals may [...] BE BASED ON THE PRIMARY CLINICAL RECORDS. [facility] [employer] [facility]. provides no warranty or guarantee of the accuracy or completeness of information in this document.
== END 2025-05-30 09:52 | disposition home or self-care (01) ==
LOC: US 09:51
PROVIDERS: PCP Family Medicine; Visit Provider Urology
DX: N20.0 Calculus of kidney (principal); I25.118 Atherosclerotic heart disease of native coronary artery with other forms of angina pectoris; E79.0 Hyperuricemia without signs of inflammatory arthritis and tophaceous disease; E78.5 Hyperlipidemia, unspecified; N18.30 Chronic kidney disease, stage 3 unspecified; I12.9 Hypertensive chronic kidney disease with stage 1 through stage 4 chronic kidney disease, or unspecified chronic kidney disease
CPT/HCPCS: 36415; 76775; 80069; 81001; 82306; 82570; 82728; 83540; 83550; 83735; 83970; 84156; 84550; 85027; 93798

== ENCOUNTER 2025-06-06 15:19 | Outpatient (OUT) | payer MEDICARE, SELFPAY ==
--- OUTSIDE RECORDS SUMMARY | 2025-06-06 15:26 | XMS_ITS | CCD ---
Author Organization [facility] Care Team Providers Care Tensile Tester Name Role Phone Jose Alfaro Primary Care [...] Provider MD Skinny Kiser Other Provider Belkis [facility] Jen Desir Other Provider MD Aaliyah Mitchell Other Provider MD Alicia León Other Provider MD Milton Braun Other Provider [phone] MD Ni Olivares Other Provider MD Yogesh Omalley Other Provider MD Kiran Eldridge Jr Other Provider MD Fátima Ivey Other Provider MD Jennifer Villarreal Other Provider [phone] MD Bipin Barclay Other Provider BRIT, [...] Unavailable HOY ., DR FELIZ Admitting Unavailable ALTO, DR TYLER [employer] Consult[employer] Unavailable BERNA, IRIS [...] Unavailable MD Jose Alfaro Primary Care Provider [phone] MD Ni Olivares Attending Provider MD Jose Alfaro Primary Care Provider [phone] NON STAFF Attending Provider Unavailable JENNIFER DRISCOLL [...] Unavailable Jose Alfaro MD Primary Care Provider [phone] Allergies Allergy ClassificationReported Allergen(s)Allergy TypeDate of OnsetReaction(s) Facility (20 sources)Ciprofloxacin; Translations: [ciprofloxacin]Drug Nzllnco67-65-5961 Eruption of skin (disorder), Itching, OtherExec[facility] ([facility])Penicillin; Translations: [penicillin]Drug AllergyEruption of skin (disorder)[facility] [employer] Other (6 sources)CiprofloxacinDrug AllergyUnknowWest [facility] Community Hospital [facility] [employer] Other (12 sources)Penicillins; Translations: [Penicillins]Allergy to substance 10-73-6438Pjqwr, Rash, Unknown, [facility] ([facility])CiprofloxacinDrug Bobtpec54-67-0608Vyg[facility] (3 sources)levothyroxine; Translations: [levothyroxine]Drug AllergySwelling of oral cavity structure (finding)[facility] (6 sources)liothyronine; Translations: [liothyronine]Drug AllergySwelling of oral cavity structure (finding)[facility] (1 source)CiprofloxacinDrug Oyhnuzr40-32-2299EgaumkzgjMiami [facility] Hospital Rep[facility] (1 source)No Known Medication Allergies; Translations: [No Known Medication Allergies]Propensity to adverse reactions (disorder)[facility] Medications Current Medications MedicationDrug Class(es)DatesSig (Normalized)Sig (Original)acetaminophen 325 mg / HYDROcodone bitartrate 5 mg oral tablet (1 source)Opioid AgonistStart: 10-07-2022 End: 10-60-8276azislzgdwwnqr-hydrocodone 325 mg-5 mg oral tablet 1 tab(s), Oral, q4hr Pain for 2 day(s), 7 tab(s),Refill(s) 0, [id number], 175, cm, 09/15/22 5:20:00 EDT, Height/Length Dosing, 114, kg, 09/15/22 5:20:00 EDT, Weight Dosing Start Date: 10/07/22 Stop Date: 10/09/22 Status: [id number] 200 actuat albuterol 0.09 mg/actuat metered dose inhaler (19 sources)beta2-Adrenergic AgonistStart: 12-20-2023 End: 22-39-1866txfp 1 puff(s) by inhalation every four hours as neededAlbuterol Sulfate (Ventolin Hfa) 90 mcg/actuation HFA aerosol inhaler Active 2 PUFF INHALATION Every 4 hours as needed June 05, 2024 4:35pmStart: 02-23-2021 take 2 puff(s) by inhalation every four hoursVentolin Diskus 2 puff(s), Inhalation, q4hr Shortness of breath or wheezing, Refill(s) 0, COPD Start Date: 02/23/21 Status: Ordered Repeat number: 1Start: 16-52-1489jqfu 2 puff(s) by inhalation every four hoursVentolin Diskus 2 puff(s), Inhalation, q4hr Shortness of breath or wheezing, Refill(s) 0, COPD Start Date: 02/23/21 Status: Ordered Start: 71-90-4046Reixxwee Diskus See Instructions, Refill(s) 0, Shortness of breath or wheezing Start Date: 02/23/21 Status: OrderedStart: 68-34-6981Ygprdmgq Diskus Refill(s) 0 Start Date: 02/23/21 Status: [...] sources)Platelet Aggregation Inhibitor, Nonsteroidal Anti-inflammatory Drug Start: 96-78-0455nsnj 81 mg by mouth once dailyaspirin 81 [...] 0.125 mg oral capsule (17 sources)Vitamin DStart: 15-33-3002sxch 1 capsule by mouth once daily Cholecalciferol (Vitamin D3) 125 mcg (5,000 unit) capsule Active 5000 UNIT PO Daily December 192:00amStart: 06-15-2019 End: 93-44-7050qauy 1 tablet by mouth once dailyCholecalciferol (Vitamin D3) 5,000 unit Tablet,Disintegrating Discontinued 5000 UNIT PO Daily June 15, 2019 1:00am December 20, 2023 11:59amStart: 73-31-8765mgtk 1 tablet by mouth once dailycholecalciferol 2000 intl units oral tablet (Vitamin D3) 2,000 International_Unit = 1 tab(s), Oral,Daily Start Date: 04/10/19 Status: Ordered Start: 43-65-8881oeab 1 tablet by mouth once dailycholecalciferol 2000 [...] release oral tablet (3 sources)Nonsteroidal Anti-inflammatory DrugStart: 55-02-7571ficb 1 tablet by mouth twice dailydiclofenac sodium 75 mg Oral EC Tab 75 mg = 1 tab(s), Oral, BID, Refills(s) 0, Arthritis Start Date: 09/14/22 Status: Orderedtake 1 tablet by mouth every twelve hoursDiclofenac Sodium 75 MG 1 tablet as needed Orally Twice a day Activedoxycycline hyclate 100 mg oral capsule (8 sources)Tetracycline-class DrugStart: 65-02-6273iovrilnbjfs hyclate 100 mg Cap See Instructions, Take 1 cap the day before your procedure and 1 capthe day of your procedure - afterwards, # 2 cap(s), Refills(s) 0, Pharmacy: [facility] #[id number], 177, cm, 11/18/22 13:54:00 EDT, Height/Length Dosing, 114.7, kg, 11/18/22 13:54:00 EDT, W... Start Date: 12/07/22 Status: OrderedStart: 07-05-2019 End: 38-20-9421moyb 1 tablet by mouth twice dailyDoxycycline Hyclate 100 mg tablet Discontinued 100 MG PO Twice daily 14 July 05, 2019 1:00am August 15, 2022 2:41pmglimepiride 2 mg oral tablet (20 sources)SulfonylureaStart: 66-01-4646wdpz 1 tablet by mouth twice daily at breakfastGlimepiride 2 mg tablet Active 2 MG PO Twice daily June 05, 2024 4:32pm administer with breakfastStart: 08-11-2023 End: 11-08-6880zljq 1 tablet by mouth once daily at breakfastGlimepiride 2 mg tablet Discontinued 2 MG PO Every morning December 20, 2023 12:00am June 05, 2024 4:36pm administer with breakfastStart: 75-14-6602jdnb 1 tablet by mouth twice dailyglimepiride 4 mg Tab 4 mg = 1 tab(s), Oral, BID, Refills(s) 0, Blood glucose Start Date: 09/14/22 Status: Ordered Repeat number: 1Start: 06-18-2019 End: 63-72-0189hdlr 1 tablet by mouth at bedtimeglimepiride 4 mg Tab 4 mg = 1 tab(s), Oral, Bedtime, Refills(s) 0, Blood glucose Start Date: 09/14/22 Status: OrderedStart: 06-18-2019 End: 57-63-3725erxb 1 mg by mouth once dailyGlimepiride Discontinued 1 MG PO Daily 0 June 18, 2019 1:10pm December 20, 2023 11:51amStart: 06-15-2019 End: 57-35-0995frgo 2 mg by mouth once dailyGlimepiride Discontinued 2 MG PO Daily June 15, 2019 1:00am June 18, 2019 1:11pmStart: 04-10-2019 End: 68-91-4900yeyy 2 mg by mouth once dailyGlimepiride 4 mg tablet Discontinued 2 MG PO Daily June 15, 2019 1:00am June 18, 2019 1:11pm Orhe-Ntduu-Mhx-D3-Hyal-Silvio Bor (1 source)Start: 97-80-8148zvyd 1 tablet by mouth twice daily Khpt-Pdymg-Ljy-D3-Hyal-Silvio Bor Active 1 TAB PO Twice daily December 20, 2023 12:55wvUwpk-Zvizs-Vml-D3-Hyal-Silvio Bor 750 mg-100 mg- 25 mcg tablet (1 source)Start: 43-87-3705ytrz 1 tablet by mouth twice daily Pmku-Qeoiz-Iix-D3-Hyal-Silvio Bor 750 mg-100 mg- 25 mcg tablet Active 1 TAB PO Twice daily December 20, 2023 12:00amglucosamine sulfate 500 mg oral capsule (9 sources)Start: 98-90-6254rjxm 1 capsule by mouth twice dailyglucosamine 500 mg Cap 500 mg = 1 cap(s), Oral, BID, Arthritis Start Date: 04/10/19 Status: OrderedRepeat number: 1Start: 97-16-8472radc 1 capsule by mouth once daily glucosamine 500 mg Cap 500 mg = 1 cap(s), Oral, Daily, Arthritis Start Date: 04/10/19 Status: OrderedGlucosamine Chondr 500 Complex - (6 sources)Glucosamine Chondr 500 Complex - as directed Orally TWICE A DAY ActiveGlucosamine Chondr 500 Complex - as directed Orally TWICE A DAY Not-Taking Glucosamine Chondr 500 Complex - as directed Orally Fgdfqc19 hr isosorbide mononitrate 120 mg extended release oral tablet (16 sources)Nitrate VasodilatorStart: 25-90-1035uadq 1 tablet by mouth once daily, then take 1 tablet by mouth every twenty-four hoursIsosorbide Mononitrate 120 mg tablet extended release 24 hr Active 120 MG PO Daily December 20, 2023 1 2:00amStart: 19-13-3345mwbercehno mononitrate 60 mg ER Tab 120 mg = 2 tab(s), Oral, qAM, Refills(s) 0, High blood pressureStart Date: 09/14/22 Status: Ordered Repeat number: 1Start: 30-15-0076daqd 1 tablet by mouth once daily in the morningisosorbide mononitrate 60 mg ER Tab 60 mg = 1 tab(s), Oral, qAM, Refills(s) 0, High blood pressure Start Date: 09/14/22 Status: Ordered ketoconazole 20 mg/ml topical cream (13 sources)Azole AntifungalStart: 45-12-0012Dofyxnqrjaey 2 % cream Active 1 APPLIC TOPICAL Twice daily December 20, 2023 12:00amStart: 00-30-5377ktrwmmjpllfd Topical, BID, Refills(s) 0 Start Date: 11/19/22 Status: Ordered Repeat number: 1 Start: 46-89-2398pclswjjjhhbt Topical, BID, Refills(s) 0 Start Date: 11/19/22 Status: OrderedKetoconazole 2 % 1 application Externally Twice a day Active Ketoconazole 2 % 1 application Externally Twice a day ActiveKetoconazole- Hydrocortisone 2 & 1 % kit (1 source)Ketoconazole-Hydrocortisone 2 & 1 % kit Apply topically Active levothyroxine sodium 0.05 mg oral tablet (18 sources)l-ThyroxineStart: 80-78-9604ncvi 1 tablet by mouth once daily Levothyroxine 50 mcg tablet Active 50 MCG PO Daily December 20, 2023 12:00amStart: 97-60-1340qlhd 1 tablet by mouth once dailylevothyroxine 50 mcg (0.05 mg) Tab 50 mcg = 1 tab(s), Oral, Daily, Refills(s) 0, Thyroid Start Date: 03/24/20 Status: Ordered Repeat number: 1liothyronine sodium 0.005 mg oral tablet (11 sources)l-TriiodothyronineStart: 99-76-3806zjzf 1 tablet by mouth once daily Liothyronine 5 mcg tablet Active 5 MCG PO Daily December 20, 2023 12:00amStart: 40-29-3878miet 1 tablet by mouth once dailyliothyronine 5 mcg Tab 5 mcg = 1 tab(s), Oral, Daily, Refills(s) 0, Thyroid Start Date: 09/14/22 Status: Ordered Repeat number: 1lisinopril 20 mg oral tablet (20 sources)Angiotensin Converting Enzyme InhibitorStart: 85-34-9951qoiz 1 tablet by mouth once dailyLisinopril 20 mg tablet Active 20 MG PO Daily December 20, 2023 12:00amStart: 22-10-3754hlwy 2 tablets by mouth once dailylisinopril 10 mg Tab 20 mg = 2 tab(s), Oral, Daily, Refills(s) 0, High blood pressure Start Date: 02/23/21 Status: Ordered Repeat number: 1Start: 12-64-6242txkd 1 mg by mouth once dailylisinopril 10 mg Tab mg tab(s), Oral, Daily, Refills(s) 0 Start Date: 02/23/21 Status: OrderedStart: 06-15-2019 End: 54-47-8438Przwempmts 40 mg tablet Discontinued 60 MG PO Daily June 15, 2019 1:00am June 18, 2019 1:11pmStart: 06-15-2019 End: 79-73-4681ncsu 60 mg by mouth once dailyLisinopril Discontinued 60 MG PO Daily June 15, 2019 1:00am June 18, 2019 1:11pmtake 1 tablet by mouth every twenty-four hoursLisinopril 20 MG 1 tablet Orally Once a day Active take 1.5 tablets by mouth every twenty-four hoursLisinopril 10 MG 1.5 tablet Orally Once a day for 90 day(s) ActiveMagnesium (7 sources)Start: 08-73-0572smon 1 tablet by mouth once dailyMagnesium Magnesium, one tab, Oral, Daily Start Date: 11/19/22 Status: Ordered Repeat number: 1Start: 15-41-3748wiin 1 tablet by mouth once dailyMagnesium Magnesium, [...] oxide 400 mg oral tablet (2 sources)Start: 45-54-3258mgxp 1 tablet by mouth once dailyMagnesium Oxide 400 mg (241.3 mg magnesium) tablet Active 400 MG PO Daily December 20, 2023 12:00am metoprolol tartrate 50 mg oral tablet (20 sources)beta-Adrenergic BlockerStart: 33-40-2705fmfg 1 tablet by mouth twice dailymetoprolol 50 mg ER Tab 50 mg = 1 tab(s), Oral, BID, Refills(s) 0, High blood pressure Start Date: 03/24/20 Status: Ordered Repeat number: 1Start: 86-35-7539xqjt 1 tablet by mouth once dailymetoprolol 50 mg ER Tab 50 mg = 1 tab(s), Oral, Daily, Refills(s) 0, High blood pressure Start Date: 03/24/20 Status: OrderedStart: 70-67-6902xlmr 1 tablet by mouth in the morningmetoprolol tartrate (Lopressor) 50 MG tablet Take 1 tablet by mouth in the morning and 1 tablet before bedtime. 05/09/2023 Activenitroglycerin 0.4 mg sublingual tablet (20 sources)Nitrate VasodilatorStart: 74-43-6803Xvydtpfgfvnzz 0.4 mg tablet, sublingual Active 0.4 MG SUBLINGUAL every 5 to 15 minutes as needed December 20, 2023 12:00amStart: 91-15-5994zotcvqjfogujb (Nitrostat) 0.[address] 1 tablet as needed by sublingual route for 30 days. 05/25/2023 ActiveStart: 68-19-2555whokfcxpmqqbd 0.4 mg, SubLingual, q5min, PRN Chest pain Start Date: 11/18/22 Status: Ordered Repeat number: 1Start: 06-15-2019 End: 13-82-6710Caiiwqspjkrki 0.3 mg Tablet, Sublingual Discontinued 0.3 MG SUBLINGUAL every 5 to 15 minutes as needed for Chest Pain June 15, 2019 1:00am December 20, 2023 11:54amNitroglycerin 0.3 MG as directed Sublingual Active pioglitazone 15 mg oral tablet (12 sources)Peroxisome Proliferator Receptor alpha Agonist, Peroxisome Proliferator Receptor gamma Agonist, ThiazolidinedioneStart: 97-80-5887gwzh 1 tablet by mouth once dailypioglitazone (Actos) 15 MG tablet TAKE 1 TABLET BY MOUTH ONCE DAILY for 90 12/24/2022 Rvyaex81 hr ranolazine 500 mg extended release oral tablet (10 sources)Anti-anginalStart: 58-66-8860mbhp 1 tablet by mouth twice daily Ranolazine 500 mg tablet extended release 12 hr Active 500 MG PO Twice daily December 20, 2023 12:00amStart: 67-64-1061xozasehhas (Ranexa) 500 MG 12 hr tablet every 12 (twelve) hours 05/25/2023 ActiveStart: 57-50-3090gumk 1 tablet by mouth once dailyranolazine 500 mg oral ER Tab 500 mg = 1 tab(s), Oral, Daily Start Date: 11/18/22 Status: Ordered Repeat number: 1take 1 tablet by mouth every twelve hoursRanolazine ER 500 MG 1 tablet Orally Twice a day Activesildenafil 100 mg oral tablet (5 sources)Phosphodiesterase 5 InhibitorStart: 89-71-7440Xuagmo 100 mg Tab 100 mg = 1 tab(s), Oral, As Directed, 1 hour before sexual activity, # 30 tab(s), Refills(s) 2, Pharmacy: [id number], 174, cm, 08/18/20 12:16:00 EST, Height/Length Dosing, 111, kg, 08/18/20 12:16:00 EST, Weight Dosing Start Date: 08/18/20 Status: OrderedSpiriva Respimat 1.25 mcg/inh inhalation aerosol (1 source)Start: 60-48-9632Wubttmw Respimat 1.25 mcg/inh inhalation aerosol puff(s), Inhalation, Daily, Refill(s) 0 Start Date: 02/23/21 Status: Ordered terbinafine 250 mg oral tablet (2 sources)Allylamine AntifungalStart: 78-61-6349wjyb 1 tablet by mouth once dailyterbinafine 250 mg oral tablet 250 mg = 1 tab(s), Oral, Daily Start Date: 04/11/19 Status: Itbnhqx93 actuat tiotropium 0.0025 mg/actuat inhalation spray (17 sources)AnticholinergicStart: 09-57-1677vphr 1 puff(s) by inhalation once dailyTiotropium Erbacon (Spiriva Respimat) 2.5 mcg/actuation mist Active 2 PUFF INHALATION Daily December 20, 2023 12:00amStart: 18-70-8065Oiovhct Respimat 1.25 mcg/inh inhalation aerosol 2 puff(s), Inhalation, Daily Shortness of breath or wheezing, Refill(s) 0, COPD Start Date: 02/23/21 Status: Ordered Repeat number: 1 Start: 55-72-1048Pivvfmf Respimat 1.25 mcg/inh inhalation aerosol puff(s), Inhalation, [...] a day ActiveVitamin B Complex (7 sources)Start: 78-48-1808thbr 1 capsule by mouth once dailyVitamin B Complex Active 1 CAP PO Daily December 20, 2023 12:00am administer with a mealVitamin B Complex - as directed Orally Not-TakingVitamin B Complex - as directed Orally ActiveVitamin B Complex capsule (1 source)Start: 15-14-6955qbbj 1 capsule by mouth once dailyVitamin B Complex capsule Active 1 CAP PO Daily December 20, 2023 12:00am administer with a meal Vitamin B Complex oral capsule (9 sources)Start: 36-13-1062rbmb 1 capsule by mouth once dailyVitamin B Complex oral capsule 1 cap(s), Oral, Daily, Prophylaxis Start Date: 03/24/20 Status: Ordered Repeat number: 1Start: 95-88-5816rbjj 1 capsule by mouth once daily Vitamin B Complex oral capsule 1 cap(s), Oral, Daily, Prophylaxis Start Date: 03/24/20 Status: OrderedStart: 63-31-3392qqcs 1 capsule by mouth once daily Vitamin B Complex oral capsule 1 cap(s), Oral, Daily Start Date: 03/24/20 Status: OrderedVitamin D3 (9 sources)Start: 44-46-1460wszz 50 ug by mouth once dailyVitamin D3 50 mcg, Oral, Daily, Refills(s) 0, Prophylaxis Start Date: 08/18/20 Status: Ordered Repeat number: 1Start: 05-20-0495jgbc 50 ug by mouth once dailyVitamin D3 50 mcg, Oral, Daily, Refills(s) 0, Prophylaxis Start Date: 08/18/20 Status: Ordered Start: 39-50-1583Eezizds D3 Refills(s) 0 Start Date: 08/18/20 Status: Ordered Vitamin D3 125 MCG (5000 UT) (1 source)take 1 capsule by mouth once dailyVitamin D3 125 MCG (5000 UT) 1 capsule Orally Once a day Active Completed/Discontinued Medications MedicationDrug Class(es)DatesSig (Normalized)Sig (Original)acetaminophen 300 mg / codeine phosphate 30 mg oral tablet (7 sources)Opioid AgonistStart: 06-15-2019 End: 43-14-3172trjr 1 tablet by mouth every six hours as needed for pain Acetaminophen-Codeine (Tylenol-Codeine #3) 300-30 mg Tablet Discontinued 300 MG PO Q6H as needed for Pain June 15, 2019 1:00am July 05, 2019 10:12am amLODIPine 2.5 mg oral tablet (20 sources)Dihydropyridine Calcium Channel BlockerStart: 78-45-9912hiQVQUJwrl 2.5 mg Tab 90 EA, 0 Refill(s), TAKE 1 TABLET BY MOUTH DAILY, Refills(s) 0 Start Date: 12/10/24 Status: Ordered Repeat number: 1Start: 79-92-7850vaiq 1 tablet by mouth once dailyAmlodipine 2.5 mg tablet Active 0 .ROUTE .COMPLEX November 27, 2024 11:28am TAKE 1 TABLET BY MOUTH DAILYStart: 06-05-2024 End: 91-50-3374tlsz 1 tablet by mouth once dailyAmlodipine 2.5 mg tablet Discontinued 2.5 MG PO Daily June 05, 2024 1:00am November 27, 2024 1 1:29amStart: 20-70-2341ulvg 5 mg by mouth once dailyamLODIPine 10 mg Tab 5 mg = 0.5 tab(s), Oral, Daily, Refills(s) 0, High blood pressure Start Date: 02/23/21 Status: OrderedStart: 06-15-2019 End: 49-24-7085bkxi 1 tablet by mouth once dailyAmlodipine 10 mg tablet Discontinued 10 MG PO Daily June 15, 2019 1:00am December 20, 2023 11:50am atorvastatin 80 mg oral tablet (20 sources)HMG-CoA Reductase InhibitorStart: 06-15-2019 End: 73-44-0800Aflgvyzjgbue 80 mg tablet Discontinued 40 MG PO Bedtime June 15, 2019 1:00am December 20, 2023 11:50amStart: 06-15-2019 End: 81-10-1397edbu 40 mg by mouth at bedtimeAtorvastatin Discontinued 40 MG PO Bedtime June 15, 2019 1:00am December 20, 2023 11:50amStart: 47-15-1409mrfs 1 tablet by mouth once dailyatorvastatin 80 mg Tab 80 mg = 1 tab(s), Oral, Daily, High cholesterol Start Date: 04/10/19 Status:Ordered Repeat number: 1 dicyclomine hydrochloride 10 mg oral capsule (7 sources)AnticholinergicStart: 06-18-2019 End: 90-13-8982qgkq 1 capsule by mouth three times daily as needed for muscle spasmsDicyclomine 10 mg capsule Discontinued 10 MG PO Three times daily as needed for spasm 14 June 18, 2019 1:09pm December 20, 2023 11:59am for bladder spasmsmetFORMIN hydrochloride 1000 mg oral tablet (7 sources)BiguanideStart: 06-15-2019 End: 19-79-9255uwwl 1 tablet by mouth twice dailyMetformin 1,000 mg tablet Discontinued 1000 MG PO Twice daily June 15, 2019 1:00am June 18, 2019 1:11pmSITagliptin 100 mg oral tablet (20 sources)Dipeptidyl Peptidase 4 InhibitorStart: 06-18-2019 End: 07-90-9711Otrojjtouuq Phosphate 100 mg tablet Discontinued 50 MG PO Daily 0 June 18, 2019 1:10pm December 20, 2023 12:02pmStart: 06-18-2019 End: 94-11-6367ljcp 50 mg by mouth once dailySitagliptin Phosphate Discontinued 50 MG PO Daily 0 June 18, 2019 1:10pm December 20, 2023 12:02pmStart: 04-10-2019 End: 37-49-5377aqyd 1 tablet by mouth once dailyJanuvia 100 mg Tab 100 mg = 1 tab(s), Oral, Daily, Blood glucose Start Date: 04/10/19 Status: Ordered Repeat number: 1SITagliptin Phosphate 50 MG as directed Orally Activeticagrelor 90 mg oral tablet (7 sources)Start: 06-15-2019 End: 99-08-5230uolq 1 tablet by mouth twice dailyTicagrelor 90 mg tablet Discontinued 90 MG PO Twice daily June 15, 2019 1:00am July 05, 2019 10:12amtriamcinolone acetonide 5 mg/ml topical cream (10 sources)CorticosteroidStart: 12-20-2023 End: 04-36-6004Qxcoyqjzypgcp Acetonide 0.5 % cream Discontinued 1 APPLIC TOPICAL Twice a Week December 20, 2023 12:00am December 03, 2024 2:20pmStart: 11-19-2022 triamcinolone acetonide Topical, BID, PRN Itching, Refills(s) 0 Start Date: 11/19/22 Status: OrderedRepeat number: 1Start: 20-44-3509pwwrqcogjvcfp acetonide Topical, BID, PRN Itching, Refills(s) 0 Start Date: 11/19/22 Status: Ordered triamcinolone (Kenalog) 0.1 % cream 1 Application ActiveTriamcinolone Acetonide 0.5 % 1 application Externally Two times a Week ActiveTriamcinolone Acetonide 0.5 % 1 application Externally Two times a Week Active Problems Active Problems Problem ClassificationProblemDateDocumented DateEpisodic/ChronicAbdominal pain (9 sources)Flank rovq13-92-8780PfyuahaaGoder and unspecified renal failure (7 sources)Renal failure syndrome; Translations: [Unspecified kidney failure] 18-98-0591YxdoxifFaarg and unspecified renal failure (20 sources)Acute renal failure syndrome; Translations: [Injury of kidney]Onset: 168153-94-5933LcsqtngnOgqjcei on above:Problem List clean-up per request of Phys. EHR CmteAcute myocardial infarction (9 sources)Myocardial mswzzibyef67-86-0737RsxcyoxSzmuegny of urinary tract (20 sources)Kidney stone; Translations: [Calculus of kidney]Onset: 05-26-2021 Resolved: 56-94-0973StoqnbgaSengbjy on above:Problem List clean-up per request of Phys. EHR CmteCancer of prostate (13 sources)Malignant tumor of prostate; Translations: [Malignant neoplasm of prostate]Onset: 675144-80-5971HeeuugsJtsmqgn kidney disease (20 sources)Chronic kidney disease; Translations: [Chronic kidney disease, unspecified]04-10-6273ToddcdwQcomudi kidney disease (13 sources)Chronic kidney disease; Translations: [Chronic kidney disease, stage III (moderate)]Onset: 05-26-2021 Resolved: 53-92-6715Bnhkhfv obstructive pulmonary disease and bronchiectasis (11 sources)Chronic obstructive lung disease; Translations: [Chronic obstructive pulmonary disease, unspecified]Onset: 142060-91-0724KjrwoahMvfisnuvte heart failure; nonhypertensive (2 sources)Chronic diastolic (congestive) heart failure; Translations: [Chronic diastolic (congestive) heart failure]Onset: 24-89-3733OpexwrlQsbqfder atherosclerosis and other heart disease (20 sources)Coronary arteriosclerosis; Translations: [Atherosclerotic heart disease of [place] coronary artery without angina pectoris]Onset: 05-16-2013 59-37-7653PvciswgPmcqytc on above:Problem List clean-up per request of Phys. EHR CmteCoronary atherosclerosis and other heart disease (8 sources)Patient post percutaneous transluminal coronary angioplasty; Translations: [Coronary angioplasty status]Onset: 53-01-7074SbvosljrVpkwaicwxs and other anemia (6 sources)Anemia of renal disease; Translations: [Anemia in chronic kidney disease]ChronicDeficiency and other anemia (2 sources)Anemia in chronic kidney diseaseChronicDiabetes mellitus with complications (20 sources)Diabetes mellitus; Translations: [Type 2 diabetes mellitus with other circulatory complications]Onset: 05-26-2021 Resolved: 81-43-0268DwgpqsrWqibscr on above:Problem List clean-up per request of Phys. EHR CmteDiabetes mellitus without complication (20 sources)Type 2 diabetes mellitus; Translations: [Diabetes mellitus]Onset: [id number] mellitus without complication (1 source)Other abnormal glucose; Translations: [OTHER ABNORMAL GLUCOSE]Onset: 68-95-9591WqnidhbvJuyawnsjv of lipid metabolism (20 sources)Hyperlipidemia; Translations: [Hyperlipidemia, unspecified]Onset: 933010-09-3713XukphteNwdgqfjxt hypertension (20 sources)Hypertensive disorder; Translations: [Essential (primary) hypertension]Onset: 195911-67-4628RooaqruFyplp and electrolyte disorders (18 sources)Metabolic acidosis; Translations: [Metabolic acidosis]Onset: 50-92-943207655071-13-2835ZjwtgpesQvrrszq on above:Problem List clean-up per request of Phys. EHR CmteGenitourinary symptoms and ill-defined conditions (20 sources)Nocturia; Translations: [Nocturia]Onset: 26-70-1134YdbzgefkUlloffs on above:Problem List clean-up per request of Phys. EHR CmteHyperplasia of prostate (20 sources)Benign prostatic hypertrophy with outflow obstruction; Translations: [Benign prostatic hyperplasia with lower urinary tract symptoms]Onset: 40-37-6755IhgufgxWmyeynf on above:Problem List clean-up per request of Phys. 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)] 59-07-2753VnxcsicBgjuiaqmjllax gastroenteritis (9 sources)Postprandial kwcssruh18-02-4751MjzrmsswAyvku and unspecified benign neoplasm (9 sources)Hyperplastic polyp of large -16-1559KbxglacfOobtc connective tissue disease (4 sources)Pain in right leg; Translations: [PAIN IN RIGHT LEG]Onset: 11-10-2022 EpisodicOther diseases of kidney and ureters (8 sources)Secondary hyperparathyroidism; Translations: [Secondary hyperparathyroidism of renal origin]35-50-7731KxtpsjdPkxil diseases of kidney and ureters (9 sources)Secondary hyperparathyroidism of renal origin; Translations: [Secondary hyperparathyroidism (of renal origin)]Onset: 05-26-2021 Resolved: 73-93-2752GuxokvuKcihk diseases of kidney and ureters (9 sources)Urinary tract obstruction; Translations: [Other obstructive and reflux uropathy]Onset: 56-53-2829ZwygormxFaeskpf on above:Problem List clean-up per request of Phys. EHR CmteOther diseases of kidney and ureters (17 sources)Hydronephrosis; Translations: [Unspecified hydronephrosis]08-08-2019 EpisodicComment on above:Problem List clean-up per request of Phys. EHR Cmte Other diseases of kidney and ureters (9 sources)Hydronephrosis due to ureteral ruuafnnxibr26-33-5280OwxoxlpyBuxft diseases of kidney and ureters (7 sources)Acute renal insufficiency; Translations: [Disorder of kidney and ureter, unspecified]19-83-5783PgzokvdmJwlmeji on above:Problem List clean-up per request of Phys. EHR CmteOther diseases of kidney and ureters (7 sources)Occlusion of ureter; Translations: [Crossing vessel and stricture of ureter without hydronephrosis]77-83-8753SsimfhvrReuwrpz on above:Problem List clean-up per request of Phys. EHR CmteOther diseases of kidney and ureters (7 sources)Obstructive nephropathy; Translations: [Other obstructive and reflux uropathy]80-23-0564JqbfrprvTslblgd on above:Problem List clean-up per request of Phys. EHR CmteOther diseases of kidney and ureters (1 source)Disorder of kidney and ureter, unspecified; Translations: [Unspecified disorder of kidney and ureter]76-47-7087PhznmkvgAlmoh diseases of kidney and ureters (7 sources)Hydronephrosis with renal and ureteral calculous obstruction; Translations: [Calculus of ureter]05-07-7935FeluhjhxQtxvqvp on above:Problem List clean-up per request of Phys. EHR CmteOther diseases of kidney and ureters (1 source)Other obstructive and reflux uropathy; Translations: [Other specified disorders of kidney and ureter]53-46-6610IrjgsnzgCddtj gastrointestinal disorders (9 sources)Occult blood in ygkghr81-84-0766EqmcvpujCidqw lower respiratory disease (7 sources)Nodule of lung; Translations: [Solitary pulmonary nodule]08-15-2022 EpisodicComment on above:Problem List clean-up per request of Phys. EHR Cmte Other lower respiratory disease (1 source)Other forms of dyspnea; Translations: [OTHER FORMS OF DYSPNEA]Onset: 56-14-3362SnrmfibbHqfxg lower respiratory disease (6 sources)Shortness of breath; Translations: [SHORTNESS OF BREATH]Onset: 66-94-0164UaculvbkLwvrl male genital disorders (12 sources)Male erectile dysfunction, unspecified; Translations: [Erectile dysfunction]Onset: 00-22-0236XdfxgypDrprp male genital disorders (4 sources)Disorder of prostate, unspecified; Translations: [DISORDER OF PROSTATE UNSPECIFIED]Onset: 56-64-2887ZajtokonSswob nervous system disorders (2 sources)Carpal tunnel syndrome; Translations: [Carpal tunnel syndrome, unspecified upper limb]Onset: 144206-73-8503ZsbwrxhDaexc nutritional; endocrine; and metabolic disorders (6 sources)Morbid obesity; Translations: [Morbid (severe) obesity due to excess calories]ChronicOther nutritional; endocrine; and metabolic disorders (6 sources)Body mass index 30+ - obesity; Translations: [Body mass index (BMI) 36.0-36.9, adult]ChronicOther nutritional; endocrine; and metabolic disorders (7 sources)H/O: reaaqnuiindbqn66-64-9261BganlqetJdfce nutritional; endocrine; and metabolic disorders (1 source)Hyperuricemia; Translations: [Hyperuricemia without signs of inflammatory arthritis and tophaceous disease]57-93-1592VcjyagxxLhzvh nutritional; endocrine; and metabolic disorders (1 source)Hyperuricemia without signs of inflammatory arthritis and tophaceous disease; Translations: [Other abnormal blood chemistry]90-15-6606LicwuyyqHweki screening for suspected conditions (not mental disorders or infectious disease) (20 sources)Raised prostate specific antigen; Translations: [Elevated prostate specific antigen [PSA]]Onset: 066144-90-7635LhupyouhCdtvkyy on above: Problem List clean-up per request of Phys. EHR CmteRheumatoid arthritis and related disease (9 sources)Rheumatoid atoupafii17-23-4153AfpkmgzHlppswtun and history of mental health and substance abuse codes (7 sources)Ex-smoker; Translations: [Personal history of nicotine dependence] Onset: 76-35-2960LoxdkbynVyqwqus disorders (1 source)Hypothyroidism, unspecified; Translations: [HYPOTHYROIDISM UNSPECIFIED]Onset: 64-21-0700ScyzppcYeqewhztusff (9 sources)Drug therapy kydvbix44-19-0641Etjhvatvvraw (4 sources)CHRN KIDNEY DISEASE STG 3 UNSP; Translations: [CHRN KIDNEY DISEASE STG 3 UNSP]Onset: 11-96-5444Xtmfclrtthwb (1 source)CONTACT W/AND (SUSP) EXPOS COVID-19; Translations: [CONTACT W/AND (SUSP) EXPOS COVID-19]Onset: 70-05-0012Nspttmfridzp (1 source)Benign prostatic hyperplasia with lower urinary tract symptoms; Translations: [Benign prostatic hyperplasia with lower urinary tract symptoms] Onset: 93-39-2365Tlvctqq tract infections (14 sources)Pyelonephritis; Translations: [Tubulo-interstitial nephritis, not specified as acute or chronic]58-56-6789AwdbcvkhCgytrvw on above:Problem List clean-up per request of Phys. 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; Translations: [OTH HALF-WAY CURRENT DRUG THERAPY]Onset: 27-72-3823XmhhpqljOifhp connective tissue disease (4 sources)Impingement syndrome of unspecified shoulder; Translations: [IMPINGEMENT SYNDROME UNS SHOULDER]Onset: 21-35-4345PcnqzrmoZrpdw non-traumatic joint disorders (1 source)Pain in right shoulder; Translations: [PAIN IN RIGHT SHOULDER]Onset: 90-37-7526PaapykpkKitxd non-traumatic joint disorders (4 sources)Pain in left knee; Translations: [PAIN IN LEFT KNEE]Onset: 02-03-2022 EpisodicUnclassified (1 source)CHRN KIDNEY DISEASE STG 3 UNSP; Translations: [CHRN KIDNEY DISEASE STG 3 UNSP]Onset: 08-18-2022 Results Test NameValueInterpretationReference UlvunYfwoufdw44mv 99-21-870760Rf informed NormalRegency Hospital CompanyFollow-Upon 34-84-3310Ysodya-[id number] Victorino Smyth 1940 M Date Provider Department Center 01/28/2025 Kia-JENNIFER HUYNH FABIOLA Ruiz Family History Problem Relation Age of Onset No Known Problems Mother No Known Problems Father Family Status - Relation Status Age at Mother Father Level of Service:33965 NM OFFICE/OUTPATIENT ESTABLISHED MOD MDM 30 [facility]36on 25-16-122514Fxgcevn Dr. Huynh of message prior to him [...] we would wait for the labsNormalUniversity [facility]-16-2025 [id number] Victorino Smyth 1940 M Date Provider Department [place] 01/16/2025 DELFIN AKBAR BH FABIOLA [facility] Family History Problem Relation Age of Onset No Known Problems Mother No Known Problems Father Family Status - Relation Status Age at Mother Father Deceased[address] [phone] call from patient. Patient states Dr. Alfaro [...] to the increase in the ranolazine. Please advise.[facility] HospitalTelephoneon [id number] Aristides Smythdanyelle Adams 1940 Date Provider Department Center 01/02/2025 [facility] Family History Problem Relation Age of Onset No Known Problems Mother No Known Problems Father Family Status - Relation Status Age at Mother FatherNormalUniMadison Health 74-35-8784GGP&P reviewed. The patient was examined and there are no changes to the H&P. Consent for blood products obtained. Risks, benefits, and alternatives to procedure discussed with patient in detail who expressed understanding and agreed to proceed. Risks discussed included progression or renal disease, renal failure, bleed, heart attack, stroke, and .[facility] HospitalNURSNOTEon 83-15-4795AWZVDQKUMK educated pt on discharge instructions. RN encouraged pt to voice any questions or concerns. Pt verbalizes no questions or concerns at this time. Pt was wheeled off unit with all belongings.[facility] Hospitalon 34-14-9532IQFY Cardiology - [facility] Subjective Victorino Smyth is [...] kidney disease) stage 3, GFR 30-59 ml/min ([facility]/HCC) Clot retention of urine Coronary artery [...] March of 2013, and then developed acute [place] related to ISR of the LAD stent on 09/28/2016 and underwent emergent Promus JOSE RAMON stent to the LAD at [facility], was on Brilinta but currently on [...] There is no abdominal (more content not included)...NormalUnGrand Lake Joint Township District Memorial HospitalOffice Visiton 11-04-4035Dhixit-up [id number] Victorino Smyth 1940 M Date Provider Department Center 12/24/2024 Kia-AUTUMNJENNIFER [facility] Family History Problem Relation Age of Onset No Known Problems Mother No Known Problems Father Family Status - Relation Status Age at Mother Father Level of Service:64925 NM OFFICE/OUTPATIENT ESTABLISHED HIGH MDM [facility] CenterAmbulatory Visit Summaryon 12-10-2024 Ambulatory Visit SummaryAmbulatory Visit [...] Comments: 6 mos w/ PSA Where: [address] [employer] [address] [place] [address]- You Need to Complete the Following [...] 1 Tablets By Kamala (more content not included)...[facility] Hospital - AkronCHEMISTRYOrdered By: SYSTEM SYSTEM on 03-58-1797Oxtr PSA [Mass/Vol]0.8 ng/mLInvalid Interpretation CodeRemisol ChemComment on above:Interpretive Data: The concentration of free PSA and total PSA determined with assays from different manufacturers can vary due to differences in assay methods and specificity. Values obtained with di fferent doll wig hackler's assays cannot be used interchangeably. The methodology used to obtain this result was chemiluminescence using [employer]'s Access Hybritech PSA reagent and Access Hybritech [...] used for this result was chemiluminescence using [employer]'s Access Hybritech PSA reagent.Urology Office/Clinic Noteon 41-19-6730Kvwmtok Office/Clinic NoteUrology Office/Clinic Note Chief Complaint 6mo [...] 16% TRUS/bx 07/05/[address] Carlisle. Path [place]dor[place] 6 (3+3) x2 involving 15%. Pt states [...] he lost the order. -Obtain VALENTINA @ [facility]. Will call pt w results. 3. BPH [...] Information CARLOS OLIVEROS, Ni P, URL [address] [place], [place] [id number]- Additional Instructions: 6 mos w/ PSA Patient Education Prostate Cancer Screening IVale, personally scribed for Dr. Olivares on 12/10/2024 11:37:28. . Documentation recorded by the Vale alvarez acurately reflects the services(s) I performed anddecisions made by me. Authenticated by Dr. Olivares on 12/10/2024 11:46:32. Portions of this record may have been created with voice recognition artificial intelligence software, specifically [employer], [employer] and or [employer] Experience. Substitutions may have occurred due to [...] Biopsy of prostate ( (more content not included)...[facility] - AkronComment on above:Result Comment: Electronically Signed By: Ni OLIVARES MD\.br\Date and Time Signed: 12/10/24 11:47 EDT\.br\Electronically Co- Signed By: Vale Bryan\.br\Date and Time Co-Signed: 12/10/24 11:37 EDT Reminderson 52-58-7913GhfdbpbdsRvuzpfxys From: Shira Mauricio To: JACOB Olivares; Sent: [...] ) Other: PROVIDER RELATED REMINDER:_ ( ) Blasting Helper ( ) Call Pharmacy ( ) Call Lab ( ) Other: Special Instructions:_ Comments:_ LM on reminding pt to get VALENTINA done, advise pt to call back LM on advise pt the order will be sent [facility] to get PSA & VALENTINA doneNormalFisher The Sheppard & Enoch Pratt HospitalErythrocyte distribution width Auto (RBC) [Ratio]on 32-64-7932Lnjitntmaqp distribution width (RBC) [Ratio]Erythrocyte distribution width [Ratio] by Automated count11.0-15.0[facility] Estimated glomerular filtration rate (GFR) non- Americanon 11-27-2024 GFR/1.73 sq M.predicted among non-blacks MDRD (S/P/Bld) [Vol rate/Area]Estimated glomerular filtration rate (GFR) non- AmericanLow>=60 mL/min/1.73m 2 [facility] HospitalHematocrit Auto (Bld) [Volume fraction]on 65-04-7398Owgsalbmwk (Bld) [Volume fraction]Hematocrit [Volume Fraction] of Blood by Automated gtrjjUbw95.0-54.0[facility] HospitalHemoglobin [Mass/volume] in Bloodon 52-78-3734Hzgnhyregx (Bld) [Mass/Vol]Hemoglobin [Mass/volume] in WprbwFpx94.0-18.0[facility] HospitalLaboratory - Chemistry and Chemistry - challengeon 57-51-5946Vsgdqrm [Mass/Vol]3.3 g/dLLow 3.4-5.0[facility] HospitalCalcium [Mass/Vol]9.2 mg/dL8.5-10.1 [facility] HospitalChloride [Moles/Vol]109 mmol/TAzpv88-514 [facility] HospitalCO2 [Moles/Vol]24.5 mmol/L21.0-32.0[facility] HospitalCreatinine [Mass/Vol]1.70 mg/dLHigh0.70-1.30[facility] HospitalGFR/1.73 sq M.predicted MDRD (S/P/Bld) [Vol rate/Area]47 mL/min/{1.73_m2}Low>=60 mL/min/1.73m 2FRegional Medical CenterGlucose [Mass/Vol]152 mg/uBDnks65-153FecffkmkuMiami Valley HospitalMagnesium [Mass/Vol]1.8 mg/dL1.8-2.4FRegional Medical CenterPotassium [Moles/Vol] 4.7 mmol/L3.5-5.1FRiverside Methodist Hospitalodium [Moles/Vol]145 mmol/L 136-145[facility] HospitalUrate [Mass/Vol]6.8 mg/dL3.5-7.2 [facility] HospitalUrea nitrogen [Mass/Vol]23.0 mg/dLHigh7.0-18.0 [facility] HospitalUrea nitrogen/Creatinine [Mass ratio]13.5 mg/mg [facility] HospitalLaboratory - Urinalysison 83-16-0406Ybevycy (U) [Mass/Vol]33.1 mg/dLHigh<=11.9[facility] HospitalLeukocytes [#/volume] corrected for nucleated erythrocytes in Blood by Automated counon 57-13-4186YVT corrected for nucl RBC Auto (Bld) [#/Vol]Leukocytes [#/volume] corrected for nucleated erythrocytes in Blood by Automated coun4.0-11.0[facility] HospitalMCH Auto (RBC) [Entitic mass]on 96-25-3965UZJ (RBC) [Entitic mass]MCH [Entitic mass] by Automated cbrppTfus06.9-34.0[facility] HospitalMCHC Auto (RBC) [Mass/Vol]on 50-40-7283RAAI (RBC) [Mass/Vol]MCHC [Mass/volume] by Automated count29.9-35.2FRegional Medical CenterMCV Auto (RBC) [Entitic vol]on 34-27-2097GFQ (RBC) [Entitic vol] MCV [Entitic volume] by Automated vfpqrCurg32.0-94.0[facility] HospitalNo Panel Informationon 680129-Yazrbnx Vitamin D Total70.4 ng/mL [facility] HospitalComment on above:<20 ng/mL Vit D surbrzpum85- <30 ng/mL Vit D hxyhgpqomhfj87-079 ng/mL Vit D sufficient>100 ng/mL Potential ToxicityParathyroid Hormone (Intact)40 pg/yJ60-64YjtvvbemgMiami Valley HospitalComment on above:Performed at: - [facility] [id number] Director: Lee Bob PhD, Phone: [phone] Phosphorus Level3.9 mg/dL2.6-4.7FRegional Medical CenterUrine Random Vzaptbmitm016.73 mg/dL20.00-300.00[facility] HospitalPlatelet mean volume Auto (Bld) [Entitic vol]on 03-22-3263Zlzvgpew mean volume (Bld) [Entitic vol]Platelet mean volume [Entitic volume] in Blood by Automated count9.5-13.5 [facility] HospitalPlatelets Auto (Bld) [#/Vol]on 11-27-2024 Platelets (Bld) [#/Vol]Platelets [#/volume] in Blood by Automated mxxbi961-994 [facility] HospitalRBC Auto (Bld) [#/Vol]on 58-20-6975WOO (Bld) [#/Vol]Erythrocytes [#/volume] in Blood by Automated countLow4.70-6.10Clinton Memorial Hospitalerum or plasma anion gap determinationon 26-57-1349Fzyyf gap [Moles/Vol]Serum or plasma anion gap determinationMiami Valley HospitalUrine protein/creatinine ratioon 79-77-9031Noklnlr/Creatinine (U) [Ratio]Urine protein/creatinine ratioMiami Valley HospitalAmbulatory Visit Summaryon 22-39-5114Gojxotlupn Visit SummaryAmbulatory Visit Summary SMYTH VICTORINO M [...] Ni OLIVARES MD Where: [facility] [place] [address] [place] [address]- You Need to Schedule the Following Appointments Follow Up with Ni OLIVARES MD, URL When: Where: [address] [address] Medications What How Much When [...] physician if q (more content not included)...Normal [facility] WestUrology Office/Clinic Noteon 88-65-1633Gwdatzv Office/Clinic NoteUrology Office/Clinic Note Chief Complaint 1 [...] 16% TRUS/bx 07/05/[address] Carlisle. Path [place]dor[place] 6 (3+3) x2 involving 15%. Pt states [...] ordered PSA Follow-up With When Contact Information CRALOS OLIVEROS, Ni P, URL [address] [place], [place] [id number]- Additional Instructions: 6 mos with PSA and VALENTINA Patient Education Dietary Guidelines to Help Prevent Kidney Stones I, Shira Mauricio, personally scribed for Dr. Olivarse on 06/12/2024 11:54:53. . Documentation recorded by the scribe, Shira Mauricio, accurately reflects the services(s) I performed and decisions made by me. Authenticated by Dr. Olivares on 06/12/2024 13:27:39. Portions of this record may have been created with voice recognition artificial intelligence software, specifically [employer], [employer] and or nivio. Substitutions may have occurred due to the [...] Cystoscopic removal of u (more content not included)...[facility] Hospital - AkronComment on above:Result Comment: Electronically Signed By: Ni OLIVARES MD P\.br\Date and Time Signed: 06/12/24 13:29 EST\.br\Electronically Co-Signed By: Shira Mauricio P\.br\Date and Time Co-Signed: 06/12/24 11:55 EST Office Visiton 82-73-3782Diemkm-up [id number] Victorino Smyth 1940 M Date Provider Department Center 05/21/2024 JENNIFER SMITH [facility] Family History Problem Relation Age of Onset No Known Problems Mother No Known Problems Father Family Status - Relation Status Age at Mother Father Level of Service:80374 NM OFFICE/OUTPATIENT ESTABLISHED LOW MDM 20 [facility] CenterErythrocyte distribution width Auto (RBC) [Ratio]on 60-77-8214Yztuxaaized distribution width (RBC) [Ratio]12.9 %11.0-15.0 [facility] HospitalEstimated glomerular filtration rate (GFR) non- Americanon 46-92-5723HIW/1.73 sq M.predicted among non-blacks MDRD (S/P/Bld) [Vol rate/Area]35 mL/min/{1.73_m2}>=60[facility] HospitalHematocrit Auto (Bld) [Volume fraction]on 77-30-1760Mypohmbwtt (Bld) [Volume fraction]41.9 %42.0-54.0[facility] HospitalHemoglobin [Mass/volume] in Bloodon 44-97-0001Ncnfcppkke (Bld) [Mass/Vol]14.0 g/dL14.0-18.0 [facility] HospitalIron binding capacity [Mass/volume] in Serum or Plasmaon 52-21-6456Iiob binding capacity [Mass/Vol]279.0 ug/dL250.0-450.0 [facility] HospitalIron saturation [Mass Fraction] in Serum or Plasmaon 91-75-6773Sxbh saturation [Mass fraction]36.2 %[facility] HospitalLaboratory - Chemistry and Chemistry - challengeon 12-14-2023 Albumin [Mass/Vol]3.3 g/dL3.4-5.0[facility] HospitalCalcium [Mass/Vol]8.5 mg/dL8.5-10.1FRegional Medical CenterChloride [Moles/Vol] 106 mmol/T00-256NvpmrbrmiMiami Valley HospitalCO2 [Moles/Vol]24.0 mmol/L 21.0-32.0[facility] HospitalCreatinine [Mass/Vol]1.84 mg/dL 0.70-1.30[facility] HospitalFerritin [Mass/Vol]111.0 ng/mL 26.0-388.0[facility] HospitalGFR/1.73 sq M.predicted MDRD (S/P/Bld) [Vol rate/Area]43 mL/min/{1.73_m2}>=60[facility] HospitalGlucose [Mass/Vol]155 mg/wW30-898XuckzygsaMiami Valley HospitalIron [Mass/Vol]101.0 ug/dL65.0-175.0[facility] HospitalMagnesium [Mass/Vol]1.7 mg/dL1.8-2.4FRegional Medical CenterPotassium [Moles/Vol] 4.6 mmol/L3.5-5.1FRiverside Methodist Hospitalodium [Moles/Vol]140 mmol/L 136-145[facility] HospitalUrate [Mass/Vol]6.4 mg/dL3.5-7.2 [facility] HospitalUrea nitrogen [Mass/Vol]21.0 mg/dL7.0-18.0 [facility] HospitalUrea nitrogen/Creatinine [Mass ratio]11.4 mg/mg [facility] HospitalBilirubin Ql (U)NegativeNEGATIVEMiami Valley HospitalGlucose (U) [Mass/Vol]NegativeNEGATIVEMiami Valley HospitalKetones Ql (U)NegativeNEGATIVEMiami Valley HospitalpH (U)5.5 [pH]5.0-9.0[facility]inton Memorial Hospitalpecific gravity (U) [Rel density]1.0151.005-1.025[facility] HospitalUrobilinogen Qn (U)0.2 {Wil'U}/dL0.2-1.0[facility] HospitalLaboratory - Specimen informationon 28-48-0729Unmpvuhdwy (U)CLEARCLEARFRegional Medical CenterColor (U)YELLOWYELLOWMiami Valley HospitalLaboratory - Urinalysison 88-48-9192Bnjjtbbbb esterase Test strip Ql (U)NegativeNEGATIVE [facility] HospitalMucus Ql (Urine sed)NONE SEENNONE SEENMiami Valley HospitalNitrite Ql (U)NegativeNEGATIVEMiami Valley HospitalProtein (U) [Mass/Vol]10.9 mg/dL<=11.9[facility] Protein Ql (U)NegativeNEG/TRACEMiami Valley HospitalLeukocytes [#/volume] corrected for nucleated erythrocytes in Blood by Automated counon 63-24-7344FIU corrected for nucl RBC Auto (Bld) [#/Vol]6.2 10 3/uL4.0-11.0 [facility] CompanyH Auto (RBC) [Entitic mass]on 13-19-4076JQF (RBC) [Entitic mass]33.7 pg25.9-34.0[facility] HospitalMCHC Auto (RBC) [Mass/Vol]on 30-22-4685YTKL (RBC) [Mass/Vol]33.4 g/dL29.9-35.2FRegional Medical CenterMCV Auto (RBC) [Entitic vol]on 72-65-8083KLN (RBC) [Entitic vol]101.0 fL80.0-94.0[facility] HospitalNo Panel Informationon 97-61-494952430639-Ccwctpf Vitamin D Total66.1 ng/mLMiami Valley HospitalComment on above:<20 ng/mL Vit D -<30 ng/mL Vit D izohimrcnoim09-400 ng/mL Vit D sufficient>100 ng/mL Potential Toxicity Parathyroid Hormone (Intact)50 pg/kZ53-90EfxpfimyxMi[facility] Hospital Comment on above:Performed at: - [facility] [id number] Director: Lee Bob PhD, Phone: [phone] Level 3.5 mg/dL2.6-4.7FRegional Medical CenterUrine BacteriaNONE SEEN #/HPF NONE SEENMiami Valley HospitalUrine Occult BloodNegativeNEGATIVE [facility] HospitalUrine Other CastsNONE SEEN #/LPFNONE SEEN [facility] HospitalUrine Other CrystalsNone Seen #/HPFNone Seen [facility] HospitalUrine Random Xnlivlidzq41.05 mg/dL20.00-300.00 [facility] HospitalUrine RBCNONE SEEN #/HPF0-2FRegional Medical CenterUrine Squamous Epithelial CellsRARE #/LPFNONE/RAREMiami Valley HospitalUrine WBCNONE SEEN #/HPFNONE SEENMiami Valley HospitalPlatelet mean volume Auto (Bld) [Entitic vol]on 47-28-2156Ozsbehfu mean volume (Bld) [Entitic vol]11.2 fL9.5-13.5FRegional Medical Center Platelets Auto (Bld) [#/Vol]on 85-03-0039Ykqtyyuem (Bld) [#/Vol]168 10 3/uL 150-450[facility] HospitalRBC Auto (Bld) [#/Vol]on 87-06-7820SPP (Bld) [#/Vol]4.15 10 6/uL4.70-6.10[facility] Memorial Hospitalerum or plasma anion gap determinationon 63-58-9062Ghwlk gap [Moles/Vol]14.6 mmol/L [facility] HospitalUrine protein/creatinine ratioon 12-14-2023 Protein/Creatinine (U) [Ratio]0.15[facility] HospitalLon 02-71-3406BChqiqogq: QW61-417 Received: 10/19/23 Status: [facility] Num: [id number] Spec Type: Surgical Subm Dr: NON STAFF Tissues: A Colon Biopsy (DESC POLYP AT 50 CM) Procedures: HE/2, Gross/Micro L4 Age/ Patient Sex Location Account Attending Physician SmythVictorino 83/M [facility] [id number] NON STAFF SPEC NUM: [id number] RECD: 10/19/23 STATUS: HIMANSHU WILLIAMSON NUM: [id number] HYUN: 10/18/[address]: EMELY STAFF ENTERED: 10/19/23 [facility] DR: Charito,Lab SPEC TYPE: Surgical DEPT: [...] colon polyp at 50 cm CPT Codes 59301 Specimen: [id number] Received: 10/19/23 Status: HIMANSHU [place] Num: [id number] Spec Type: Surgical Subm Dr: EMELY ORTIZ Tissues: A Colon Biopsy (DESC POLYP AT 50 CM) Procedures: HE/2, Gross/Micro L4 Patient: Victorino Smyth [id number] (Continued) Signed (signature on file) Ana Villegas MD 10/20/[address] [place] [address] Physician GroupCT ABDOMEN PELVIS W CONon [id number] [address] [place] Scan Report Signed Patient: VICTORINO SMYTH MR#: [id number] : 1940 Acct:[id number] Age/Sex: 83 / M ADM Date: 09/27/23 Loc: CT Attending Dr: Jennifer Driscoll D.O. Ordering Physician: Jennifer Driscoll D.O. Date of Service: 09/27/23 Procedure(s): CT abdomen pelvis w con Accession Number(s): [id number] cc: Jose Alfaro M.D. [place] [id number] Patient Name: VICTORINO SMYTH MRN: [id number] date: 1940 Sex: M Assigned Patient Location: CT Current Patient Location: CT Accession/Order Number: [id number] Exam Date: 09/27/2023 09:05 Report Date: 09/27/2023 [...] Signed By: 09/27/23 1607 DD/ 1605 TD/TT: Operating Room Surgical Technologist:TBHRadiology, Radiologist, MD - 09/27/2023 [place] [address] CT Scan Report Signed Patient: VICTORINO SMYTH MR#: [id number] : 1940 Acct:[id number] Age/Sex: 83 / M ADM Date: 09/27/23 Loc: CT Attending Dr: Jennifer Driscoll D.O. Ordering Physician: Jennifer Driscoll D.O. Date of Service: 09/27/23 Procedure(s): CT abdomen pelvis w con Accession Number(s): [id number] cc: Jose Alfaro M.D. The [address] [address] Patient Name: VICTORNIO SMYTH MRN: [id number] date: 1940 Sex: M Assigned Patient Location: CT Current Patient Location: CT Accession/Order Number: [id number] Exam Date: 09/27/2023 09:05 Report Date: 09/27/2023 [...] Signed By: 09/27/23 1607 DD/ 1605 TD/TT: Operating Room Surgical Technologist: VIK HealthcareRadiology Study observation (narrative)VIK HealthcareCT ABDOMEN PELVIS W CONOrdered By: Radiologist Radiology on 84-32-2509TGSL [employer] Work Phone: ecg 12-LEADon [phone] [address] Electrocardiograph Report Signed Patient: VICTORINO SMYTH MR#: [id number] : 1940 Acct:[id number] Age/Sex: 82 / M ADM Date: 07/29/23 Loc: [place] 230-[address]: Jose Alfaro M.D. Ordering Physician: Tesha Dowell Date of Service: 07/29/23 Procedure(s): ECG 12 lead Accession Number(s): [id number] cc: The [facility] Test Date: 2023-07-29 Pat Name: VICTORINO SMYTH Department: Room: - Gender: Male Training Program Assistant: : 1940 Requested By: JOSE ALFARO Order Number: [id number] Reading MD: JOSE ALFARO Measurements Intervals [place] Rate: 82 P: 6 NM: 170 QRS: 27 QRSD: 88 T: 51 QT: 352 QTc: 391 Interpretive Statements 1100 Sinus rhythm Electronically Signed On 2023 5:55:01 EST by JOSE ALFARO Dictated By: Jose Alfaro M.D. Signed By: 07/31/23 0555 DD/ 1446 TD/TT: Operating Room Surgical Technologist:Nakita Alvarez, - 2023 The [place] [id number] Electrocardiograph Report Signed Patient: VICTORINO SMYTH MR#: [id number] : 1940 Acct:[id number] Age/Sex: 82 / M ADM Date: 07/29/23 Loc: MS 230-[address]: Jose Alfaro M.D. Ordering Physician: Tesha Dowell Date of Service: 07/29/23 Procedure(s): ECG 12 lead Accession Number(s): [id number] cc: The [facility] Test Date: 2023-07-29 Pat Name: VICTORINO SMYTH Department: Room: - Gender: Male Training Program Assistant: : 1940 Requested By: JOSE ALFARO Order Number: [id number] Reading MD: JOSE ALFARO Measurements Intervals [place] Rate: 82 P: 6 NM: 170 QRS: 27 QRSD: 88 T: 51 QT: 352 QTc: 391 Interpretive Statements 1100 Sinus rhythm Electronically Signed On 2023 5:55:01 EST by JOSE ALFARO Dictated By: Jose Alfaro M.D. Signed By: 07/31/23 0555 DD/ 1446 TD/TT: Operating Room Surgical Technologist: VIK HealthcareECG 12-LEADOrdered By: Radiologist Radiology on 97-55-5509[facility] Work Phone: ECG 12-LEADon 87-65-8606Yiugsfwnk Study observation (narrative)VIK HealthcareCalcium [Mass/volume] in Serum or PlasmaOrdered By: Ni Olivares on 92-87-2319Zvlwiqn [Mass/Vol]8.8 mg/dLNormal8.6-10.3FRegional Medical CenterComment on above:Performed By: #### URIC, CA, CREAT, BUN, PTH, LYTES #### [facility] [address] [place] [address] USACarbon dioxide, total [Moles/volume] in Serum or Plasma Ordered By: Ni Olivares on 88-03-4327IT8 [Moles/Vol]24.0 mmol/OHegwos35.0-31.0 [facility] HospitalComment on above:Performed By: #### URIC, CA, CREAT, BUN, PTH, LYTES #### [facility] [address] [place] [address] USAChloride [Moles/volume] in Serum or PlasmaOrdered By: Ni Olivares on 49-82-1316Ustdymzi [Moles/Vol]107 mmol/WPvmujk70-837IaalkhzhdMiami Valley HospitalComment on above:Performed By: #### URIC, CA, CREAT, BUN, PTH, LYTES #### [facility] [address] [place] [address] USACreatinineon 29-77-2175KZL/1.73 sq M.predicted MDRD (S/P/Bld) [Vol rate/Area]32.151 mL/min/{1.73_m2}NormalThe [facility] Physician GroupComment on above:Performed By: #### URIC, CA, CREAT, BUN, PTH, LYTES #### [facility] [address] [place] [id number] USACreatinine [Mass/volume] in Serum or PlasmaOrdered By: Ni Olivares on 82-01-9216Qlbbpsgrna [Mass/Vol]2.05 mg/dLHigh0.70-1.30[facility] HospitalComment on above:Performed By: #### URIC, CA, CREAT, BUN, PTH, LYTES #### [facility] [address] [place], [place] [address] USANo Panel InformationOrdered By: Ni Olivares on 07-02-2023 Estimated GFR (CKD-EPI)32.151 mL/MinMiami Valley HospitalPharmacy Creatinine Clearance (ChemN/[facility] HospitalParathyrin.intact [Mass/volume] in Serum or PlasmaOrdered By: Ni Olivares on 07-02-2023 Parathyrin.intact [Mass/Vol]55.4 pg/uO64-37CvciuvrzpMiami Valley Hospital Parathyroid Hormone [place] 28-38-6499Nmuzrrzzktt Hormone Xldslv40.4 pg/mL Xmwgty80-27Chz [facility] Physician GroupComment on above:Result Comment: PERFORMED BY: [place] [address] PATHOLOGIST [employer] GUIDE DIANDRA LACY M.D.Performed By: #### URIC, CA, CREAT, BUN, PTH, LYTES #### [facility] [address] [place], [place] [address] USAPotassium [Moles/volume] in Serum or PlasmaOrdered By: Ni Olivares on 81-17-2571Jorjdavgk [Moles/Vol]5.0 mmol/LNormal3.5-5.1FRegional Medical CenterComment on above:Performed By: #### URIC, CA, CREAT, BUN, PTH, LYTES #### [facility] [address] [place] [id number] USASerum or plasma anion gap determinationOrdered By: Ni Olivares on 30-20-1206Loyvt gap [Moles/Vol]12.0 mmol/LNormal6.0-15.0[facility] HospitalComment on above:Performed By: #### URIC, CA, CREAT, BUN, PTH, LYTES #### [place] [address] USASodium [Moles/volume] in Serum or PlasmaOrdered By: Ni Olivares on 50-59-4234Iuvuwp [Moles/Vol]138 mmol/PUhurov572-510JmotlbdoeMiami Valley HospitalComment on above:Performed By: #### URIC, CA, CREAT, BUN, PTH, LYTES #### [place] [address] USAUrate [Mass/volume] in Serum or PlasmaOrdered By: Ni Olivares on 35-70-4211Peeql [Mass/Vol]8.2 mg/dLHigh4.4-7.6FRegional Medical CenterComment on above:Result Comment: PERFORMED BY: [place] [address] PATHOLOGIST [employer] GUIDE DIANDRA LACY M.D.Performed By: #### URIC, CA, CREAT, BUN, PTH, LYTES #### [place] [id number] USAUrea nitrogen [Mass/volume] in Serum or PlasmaOrdered By: Ni Olivares on 38-56-3008Fkmt nitrogen [Mass/Vol]31 mg/dLHigh7-25[facility] HospitalComment on above:Performed By: #### URIC, CA, CREAT, BUN, PTH, LYTES #### [place] [address] USAPSA Total (Not a Screen)on 28-05-9829KMJ Total (Not a Screen)4.730 ng/mLHigh0.000-4.000The [facility] Physician GroupComment on above: Result Comment: Serial tumor marker results determined by assays using different manufacturers or methods may not be comparable. [facility] doll wig hackler and method: [employer] DXI, CHEMILUMINESCENT IMMUNOASSAY. PERFORMED BY: [place] [address] PATHOLOGIST [employer]URE GUIDE DIANDRA LACY M.D.Performed By: #### PSATOTAL #### [place] [address] USAProstate specific Ag [Mass/volume] in Serum or Plasma Ordered By: Ni Olivares on 34-26-9521Npswfbub specific Ag [Mass/Vol]4.730 ng/mL 0.000-4.000Mi[facility] HospitalComment on above:Serial tumor marker results determined by assays using different manufacturers or methods may not be comparable.[facility] doll wig hackler and method:[employer] SuperTurboEL DXI, CHEMILUMINESCENT IMMUNOASSAY.US renal BIon 93-14-8502BW renal [facility] Main [place] [address] [place] [address] Ultrasound Report Signed Patient: Victorino Smyth MR#: [id number] : 1940 Acct:[id number] Age/Sex: 82 / M ADM Date: 06/16/23 Loc: Room: Type: [facility] Attending Dr: Ni Olivares MD Ordering [...] Rehan Fuentes M.D.06/16/2023 4:02 PM Dictation Location: [place] [address] Tech: Sue Chiu Transcribed By: [facility] 06/16/23 1602 Dictated By: Rehan Fuentes DO 06/16/23 1559 Signed By: 06/16/23 1602[facility] Physician GroupPSA, FREE AND TOTAL RATIOon 11-09-2022% Free PSA11.3 %NormalThe [address] Mary'S Medical CenterComment on above:Result Comment: The table below lists [...] By: #### PSAFREE #### [facility] [address] [place] [address] Dr. Alicia Pennington specific Ag [Mass/Vol]4.6 ng/mLCritically high0.0-4.0The St. [facility]S Medical CenterComment on above:Result Comment: Liquid X ECLIA methodology. . According to the [employer] [employer], Serum PSA should decrease and [...] By: #### PSAFREE #### [facility] [address] [place] [address] Dr. Alicia Hernandez, Free0.52 ng/mLNormalN/AThe St. Mary'S Medical CenterComment on above:Result Comment: Brenda ECLIA methodology.Performed By: #### PSAFREE #### [facility] [address] [place] [address] Dr. Alicia PatelINSULINon 21-79-9138Pysvydy92.5 uIU/mLNormal2.6-24.9The [facility]. [facility]S Medical CenterComment on above:Performed By: #### TSH, LIPID, T4, FT3, CMP #### [facility] [address] [place] [address] Dr. Alicia Boswell AUTO DIFFon 79-68-5812LVUA #0.0 103/ulNormal0.0-0.1The St. [facility]'S Medical CenterComment on above:Performed By: #### CBC #### [facility] [address] [place] [address] Dr. Alicia PatelBasophils/100 WBC (Bld)0.4 %Normal0.2-2.0[facility] Comment on above:Performed By: #### CBC #### [facility] [address] [place] [address] Dr. Alicia Coats #0.2 103/ulNormal0.0-0.7The [facility]'S Medical CenterComment on above: Performed By: #### CBC #### [facility] [address] [place] [address] Dr. Alicia Dunnosinophils/100 WBC (Bld)4.6 %Normal0.9-7.0[facility] Comment on above:Performed By: #### CBC #### [facility] [address] [place] [address] Dr. Alicia Dunnrythrocyte distribution width (RBC) [Ratio]13.2 %Uguyzf37.0-15.0 [facility] HospitalComment on above:Performed By: #### CBC #### [facility] [address] [place] [address] Dr. Alicia PatelHematocrit (Bld) [Volume fraction]34.6 %Critically low42.0-54.[address] [facility]S Medical CenterComment on above:Performed By: #### CBC #### [facility] [address] [place] [address] Dr. Alicia PatelHemoglobin (Bld) [Mass/Vol]11.4 g/dLCritically low14.0-18.0The [facility]S Medical CenterComment on above:Performed By: #### CBC #### [facility] [address] [place] [address] Dr. Alicia Bell #0.03 10e3/ulNormal0.00-0.03The [facility]. [facility]'S Medical CenterComment on above:Performed By: #### CBC #### [facility] [address] [place] [address] Dr. Alicia Bell %0.6 %Critically high0.0-0.5The [facility]'S Medical CenterComment on above:Performed By: #### CBC #### [facility] [address] [place] [address] Dr. Alicia Magallon #0.9 103/ulCritically low1.2-3.8The [facility] Comment on above:Performed By: #### CBC #### [facility] [address] [place] [address] Dr. Alicia Gonzaleshocytes/100 WBC (Bld)16.3 %Critically low20.5-60.0The [facility]'S Medical CenterComment on above:Performed By: #### CBC #### [facility] [address] [place] [address] Dr. Alicia KincaidUAL DIFF REQNONormalThe St. Mary'S Medical CenterComment on above: Performed By: #### CBC #### [facility] [address] [place] [address] Dr. Alicia Nixon (RBC) [Entitic mass]32.9 qnWdhdpl47.9-34.0The [facility]'S Medical CenterComment on above:Performed By: #### CBC #### [facility] [address] [place] [address] Dr. Alicia Nixon (RBC) [Mass/Vol]32.9 g/yBGjcglf34.9-35.2The [facility]S Medical CenterComment on above:Performed By: #### CBC #### [facility] [address] [place] [address] Dr. Alicia NixonV (RBC) [Entitic vol]99.7 fLCritically high80.0-94.0The [facility]S Medical CenterComment on above:Performed By: #### CBC #### [facility] [address] [place] [address] Dr. Alicia Merchant #0.6 103/ulNormal0.3-0.8The [facility]S Medical CenterComment on above:Performed By: #### CBC #### [facility] [address] [place] [address] Dr. Alicia Carpenterocytes/100 WBC (Bld)12.0 %Normal1.7-12.0The [facility] Comment on above:Performed By: #### CBC #### [facility] [address] [place] [address] Dr. Alicia Bright #3.5 103/ulNormal1.4-6.5The [facility]S Medical CenterComment on above:Performed By: #### CBC #### [facility] [address] [place] [address] Dr. Alicia Kapoorutrophils/100 WBC (Bld)66.1 %Xgqbhh07.0-75.0The [facility]'S Medical CenterComment on above:Performed By: #### CBC #### [facility] [address] [place] [address] Dr. Alicia Marks mean volume (Bld) [Entitic vol]10.1 fLNormal9.5-13.5The St. [facility]'S Medical CenterComment on above:Performed By: #### CBC #### [facility] [address] [place] [address] Dr. Alicia PatelPLT168 103/txZioncg233-693Rnw St. [facility]'S Medical CenterComment on above: Performed By: #### CBC #### [facility] [address] [place] [address] Dr. Alicia PatelRBC3.47 106/ulCritically low4.70-6.10The [facility]S Medical CenterComment on above:Performed By: #### CBC #### [facility] [address] [place] [address] Dr. Alicia PatelWBC5.2 103/ulNormal4.0-11.0The [facility] on above: Performed By: #### CBC #### [facility] [address] [place] [address] Dr. Alicia PatelFREE T3on 87-89-0306OHDC T32.78 pg/mlLNormal2.18-3.98The [facility] Medical CenterComtrinity health [facility] on above:Performed By: #### URTPCR #### [facility] [address] [place] [address] Dr. Alicia PatelGLYCOHEMOGLOBIN A1Con 91-51-0948BKI RECOMMENDATIONSEE BELOWNoBethesda North HospitalComtrinity health [facility] on above:Result Comment: ADA RECOMMENDED LIMIT 4.0 - 6.0 ADA THERAPEUTIC TARGET < 7.0 ACTION SUGGESTED > 7.0Performed By: #### TSH, LIPID, T4, FT3, CMP #### [facility] [address] [place] [address] Dr. Alicia PatelGlucose [Mass/Vol]120 mg/dLNoProMedica Defiance Regional HospitalComtrinity health [facility] on above:Performed By: #### TSH, LIPID, T4, FT3, CMP #### [facility] [address] [place] [address] Dr. Alicia PatelHbA1c (Bld) [Mass fraction]5.8 %Normal4.5-6.2The [facility] on above:Performed By: #### TSH, LIPID, T4, FT3, CMP #### [facility] [address] [place] [address] Dr. Alicia PatelLIPID PROFILEon 15-62-7467SPQK-HDL RATIO NORMSEE [facility] HospitalComtr[facility] on above:Result Comment: 3.3 - 4.4 LOW RISK 4.4 - 7.1 AVERAGE RISK 7.1 - 11.0 MODERATE RISK >11.0 HIGH RISKPerformed By: #### URTPCR #### [facility] [address] [place] [address] Dr. Alicia PatelCholesterol [Mass/Vol]107 mg/dLNormal<=200The [facility] Comment on above:Performed By: #### URTPCR #### [facility] [address] [place] [address] [address] Alicia PatelCholesterol in HDL [Mass/Vol]34 mg/dLCritically hkk39-02SutOhiohealth Dublin Methodist HospitalComment on above:Performed By: #### URTPCR #### [facility] [address] [place] [address] [address] Alicia PatelCholesterol in LDL [Mass/Vol]58.8 mg/dLFlower HospitalComment on above:Performed By: #### URTPCR #### [facility] [address] [place] [address] Dr. Alicia Toro.total/Cholesterol in HDL [Mass ratio]3.1 {ratio} NormalOhiohealth Dublin Methodist HospitalComment on above:Performed By: #### URTPCR #### [facility] [address] [place] [address] Dr. Alicia Drew NORMAL> or = 60 mg/dl - LOW CARDIOVASCULAR RISK <40 mg/dl - HIGH CARDIOVASCULAR RISKFlower HospitalComment on above:Performed By: #### URTPCR #### [facility] [address] [place] [address] Dr. Alicia Do CALC NORMALSEE BELOWFlower HospitalComment on above:Result Comment: <100 mg/dl OPTIMAL 100 - 129 mg/dl NEAR OR ABOVE OPTIMAL 130 - 159 mg/dl BORDERLINE HIGH 160 - 189 mg/dl HIGH >190 mg/dl VERY HIGH Performed By: #### URTPCR #### [facility] [address] [place] [address] Dr. Alicia PatelTriglyceride [Mass/Vol]71 mg/dLNormal<=150[facility] Comment on above:Performed By: #### URTPCR #### [facility] [address] [place] [address] Dr. Alicia PatelVLDL CALC14.2 mg/dLNoProMedica Defiance Regional HospitalComment on above: Performed By: #### URTPCR #### [facility] [address] [place] [address] Dr. Alicia Rene 14(COMP METB)on 11-96-4728Swdsqsi [Mass/Vol]3.4 g/dLNormal 3.4-5.0The St. Mary'S Medical CenterComment on above:Performed By: #### TSH, LIPID, T4, FT3, CMP #### [facility] [address] [place] [address] Dr. Alicia PatelAlbumin/Globulin [Mass ratio]0.9 {ratio}NormalThe St. Mary'S Medical CenterComment on above:Performed By: #### TSH, LIPID, T4, FT3, CMP #### [facility] [address] [place] [address] Dr. Alicia Estrella [Catalytic activity/Vol]75 U/IDunvqa97-551Lwr St. [facility]'S Medical CenterComment on above:Performed By: #### TSH, LIPID, T4, FT3, CMP #### [facility] [address] [place] [address] Dr. Alicia Mejia [Catalytic activity/Vol]31 U/PRmsbct62-94Fwh St[facility]'S Medical CenterComment on above:Performed By: #### TSH, LIPID, T4, FT3, CMP #### [facility] [address] [place] [address] Dr. Alicia Galvan gap [Moles/Vol]14.4 mmol/LNormalThe [facility] Comment on above:Performed By: #### TSH, LIPID, T4, FT3, CMP #### [facility] [address] [place] [address] Dr. Alicia Hernandez [Catalytic activity/Vol]23 U/QXwwdqn54-95Ohk St[facility]'S Medical CenterComment on above:Performed By: #### TSH, LIPID, T4, FT3, CMP #### [facility] [address] [place] [address] Dr. Alicia Lopezirubin [Mass/Vol]0.5 mg/dLNormal0.2-1.0The [facility] Comment on above:Performed By: #### TSH, LIPID, T4, FT3, CMP #### [facility] [address] [place] [address] Dr. Alicia PatelCalcium [Mass/Vol]8.8 mg/dLNormal8.5-10.1The [facility] Comment on above:Performed By: #### TSH, LIPID, T4, FT3, CMP #### [facility] [address] [place] [address] Dr. Alicia PatelChloride [Moles/Vol]110 mmol/LCritically lgso80-955Ixz St[facility]S Medical CenterComment on above:Performed By: #### TSH, LIPID, T4, FT3, CMP #### [facility] [address] [place] [address] Dr. Alicia PatelCO2 [Moles/Vol]24.2 mmol/ADrdvii81.0-32.0The [facility] Comment on above:Performed By: #### TSH, LIPID, T4, FT3, CMP #### [facility] [address] [place] [address] Dr. Alicia PatelCreatinine [Mass/Vol]2.41 mg/dLCritically high0.70-1.30The St[facility]S Medical CenterComment on above:Performed By: #### TSH, LIPID, T4, FT3, CMP #### [facility] [address] [place] [address] Dr. Alicia DunnGFR-AF GBVXOYRX43 mL/min/1.05t6Lbsvetylgm low>=60The St. [facility]'S Medical CenterComment on above:Performed By: #### TSH, LIPID, T4, FT3, CMP #### [facility] [address] [place] [address] Dr. Alicia DunnGFR-NON AF WGMZOYWY38 mL/min/1.53t8Wdyaellkjo low>=60The St[facility]'S Medical CenterComment on above:Performed By: #### TSH, LIPID, T4, FT3, CMP #### [facility] [address] [place] [address] Dr. Alicia PatelGlobulin (S) [Mass/Vol]3.6 g/dLNormalThe St. Mary'S Medical CenterComment on above:Performed By: #### TSH, LIPID, T4, FT3, CMP #### [facility] [address] [place] [address] Dr. Aliica PatelGlucose [Mass/Vol]72 mg/dLCritically dgb14-851Aao St[facility]S Medical CenterComment on above:Performed By: #### TSH, LIPID, T4, FT3, CMP #### [facility] [address] [place] [address] Dr. Alicia PatelPotassium [Moles/Vol]4.6 mmol/LNormal3.5-5.1The [facility] Comment on above:Performed By: #### TSH, LIPID, T4, FT3, CMP #### [facility] [address] [place] [address] Dr. Alicia PatelProtein [Mass/Vol]7.0 g/dLNormal6.4-8.2[facility] Comment on above:Performed By: #### TSH, LIPID, T4, FT3, CMP #### [facility] [address] [place] [address] Dr. Alicia PatelSodium [Moles/Vol]144 mmol/EZckfbt598-606Ijt [facility] Comment on above:Performed By: #### TSH, LIPID, T4, FT3, CMP #### [facility] [address] [place] [address] Dr. Alicia PatelUrea nitrogen [Mass/Vol]32.0 mg/dLCritically high7.0-18.0The [facility]S Medical CenterComment on above:Performed By: #### TSH, LIPID, T4, FT3, CMP #### [facility] [address] [place] [address] Dr. Alicia Nguyễn nitrogen/Creatinine [Mass ratio]13.3 mg/mgNormalThe St. Mary'S Medical CenterComment on above:Performed By: #### TSH, LIPID, T4, FT3, CMP #### [facility] [address] [place] [address] Dr. Alicia Solis4on 88-82-9685P6 [Mass/Vol]7.90 ug/dLNormal4.50-12.10The St. [facility]S Medical CenterComment on above:Performed By: #### TSH, LIPID, T4, FT3, CMP #### [facility] [address] [place] [address] [address] Alicia Pinto 34-95-8951IMG9.263 uIU/mLCritically low0.358-3.740The St. [facility]S Medical CenterComment on above:Performed By: #### TSH, LIPID, T4, FT3, CMP #### [facility] [address] [place] [address] [address] Alicia PatelURIC ACID SERUMon 89-98-1002Thgel [Mass/Vol]7.3 mg/dLCritically high3.5-7.2The [facility]S Medical CenterComment on above:Performed By: #### TSH, LIPID, T4, FT3, CMP #### [facility] [address] [place] [address] [address] Vargas ChangECHOCARDIO M/2D COMPLETEon 35-66-9353JQPVBHJKCX M/2D COMPLETE Patient: VICTORINO SMYTH Exam Date: 10/26/2022 : 1940 Gender:M Ordering : IRIS CORONEL Admission #: [id number] Family : DR JOSE ALFARO . Order #: [id number] CLICK HERE TO VIEW EXAM ECHOCARDIOGRAM REPORT [...] by: Ksenia Glasgow M.D. on 10/28/2022 at 13:02Flower HospitalXR KUB 1 VIEWon 10-36-2953YV KUB 1 VIEWEXAMINATION: XR KUB 1 VIEW [...] Electronically authenticated by: TYLER MONSIVAIS Date: 2022-10-22 09:12Flower HospitalUS KIDNEYSon 80-55-9321DQ KIDNEYSEXAMINATION: US KIDNEYS HISTORY: Kidney stone COMPARISON: [...] Electronically authenticated by: TESS FORD Date: 2022-10-18 07:04Flower HospitalBNPon 01-23-1967Arpbvnqzext peptide B (Bld) [Mass/Vol]300.0 pg/mLNormal<=1,800.0[facility] HospitalComment on above:Performed By: #### TSH, LIPID, T4, FT3, CMP #### [facility] [address] [place] [address] Dr. Alicia Boswell AUTO DIFFon [id number] #0.0 103/ulNormal0.0-0.1The [facility]. [facility] Medical CenterComment on above:Performed By: #### TSH, LIPID, T4, FT3, CMP #### [facility] [address] [place] [address] Dr. Alciia PatelBasophils/100 WBC (Bld)0.6 %Normal0.2-2.0The [facility] Comment on above:Performed By: #### TSH, LIPID, T4, FT3, CMP #### [facility] [address] [place] [address] Dr. Alicia Coats #0.2 103/ulNormal0.0-0.7The [facility] CenterComment on above: Performed By: #### TSH, LIPID, T4, FT3, CMP #### [facility] [address] [place] [address] Dr. Alicia Dunnosinophils/100 WBC (Bld)4.6 %Normal0.9-7.0The [facility] Comment on above:Performed By: #### TSH, LIPID, T4, FT3, CMP #### [facility] [address] [place] [address] Dr. Alicia Dunnrythrocyte distribution width (RBC) [Ratio]14.2 %Tkfzam30.0-15.[address] [facility] CenterComment on above:Performed By: #### TSH, LIPID, T4, FT3, CMP #### [facility] [address] [place] [address] Dr. Alicia PatelHematocrit (Bld) [Volume fraction]36.1 %Critically low42.0-54.[address] [facility] CenterComment on above:Performed By: #### TSH, LIPID, T4, FT3, CMP #### [facility] [address] [place] [address] Dr. Alicia PatelHemoglobin (Bld) [Mass/Vol]11.8 g/dLCritically low14.0-18.0The [facility] CenterComment on above:Performed By: #### TSH, LIPID, T4, FT3, CMP #### [facility] [address] [place] [address] Dr. Alicia Bell #0.03 10e3/ulNormal0.00-0.03The [facility] CenterComment on above:Performed By: #### TSH, LIPID, T4, FT3, CMP #### [facility] [address] [place] [address] Dr. Alicia Bell %0.6 %Critically high0.0-0.5The [facility] CenterComment on above:Performed By: #### TSH, LIPID, T4, FT3, CMP #### [facility] [address] [place] [address] Dr. Alicia Magallon #1.1 103/ulCritically low1.2-3.8The [facility] Comment on above:Performed By: #### TSH, LIPID, T4, FT3, CMP #### [facility] [address] [place] [address] Dr. Alicia Gonzaleshocytes/100 WBC (Bld)22.6 %Cwgwtf08.5-60.0The [facility] CenterComment on above:Performed By: #### TSH, LIPID, T4, FT3, CMP #### [facility] [address] [place] [address] Dr. Alicia KincaidUAL DIFF REQNONormalThe St. [facility]S Medical CenterComment on above: Performed By: #### TSH, LIPID, T4, FT3, CMP #### [facility] [address] [place] [address] Dr. Alicia Nixon (RBC) [Entitic mass]33.2 vxPglfdg51.9-34.0The [facility] CenterComment on above:Performed By: #### TSH, LIPID, T4, FT3, CMP #### [facility] [address] [place] [address] Dr. Alicia Nixon (RBC) [Mass/Vol]32.7 g/zTQbfhfg13.9-35.2The [facility] CenterComment on above:Performed By: #### TSH, LIPID, T4, FT3, CMP #### [facility] [address] [place] [address] Dr. Alicia Villanueva (RBC) [Entitic vol]101.7 fLCritically high80.0-94.0The [facility] CenterComment on above:Performed By: #### TSH, LIPID, T4, FT3, CMP #### [facility] [address] [place] [address] Dr. Alicia Merchant #0.7 103/ulNormal0.3-0.8The [facility] CenterComment on above:Performed By: #### TSH, LIPID, T4, FT3, CMP #### [facility] [address] [place] [address] Dr. Alicia Carpenterocytes/100 WBC (Bld)13.8 %Critically high1.7-12.0The [facility] CenterComtrinity [facility] on above:Performed By: #### TSH, LIPID, T4, FT3, CMP #### [facility] [address] [place] [address] Dr. Alicia Bright #2.9 103/ulNormal1.4-6.5The [facility] on above:Performed By: #### TSH, LIPID, T4, FT3, CMP #### [facility] [address] [place] [address] Dr. Alicia Kapoorutrophils/100 WBC (Bld)57.8 %Qtgphq26.0-75.0The [facility] on above:Performed By: #### TSH, LIPID, T4, FT3, CMP #### [facility] [address] [place] [address] Dr. Alicia Marks mean volume (Bld) [Entitic vol]10.1 fLNormal9.5-13.5The [facility] CenterComment on above:Performed By: #### TSH, LIPID, T4, FT3, CMP #### [facility] [address] [place] [address] Dr. Alicia PatelPLT160 103/dzSyxuwz885-698Yjs St. [facility]S Medical CenterComment on above: Performed By: #### TSH, LIPID, T4, FT3, CMP #### [facility] [address] [place] [address] Dr. Alicia PatelRBC3.55 106/ulCritically low4.70-6.10The [facility] CenterComment on above:Performed By: #### TSH, LIPID, T4, FT3, CMP #### [facility] [address] [place] [address] Dr. Alicia PatelWBC5.0 103/ulNormal4.0-11.0The [facility] CenterComment on above: Performed By: #### TSH, LIPID, T4, FT3, CMP #### [facility] [address] [place] [address] Dr. Alicia PatelPROF CHEM 8 (BAS METB)on 83-00-6546Edtxg gap [Moles/Vol]13.9 mmol/LNormalThe St. [facility]S Medical CenterComment on above:Performed By: #### TSH, LIPID, T4, FT3, CMP #### [facility] [address] [place] [address] Dr. Alicia PatelCalcium [Mass/Vol]8.3 mg/dLCritically low8.5-10.1The [facility] CenterComment on above:Performed By: #### TSH, LIPID, T4, FT3, CMP #### [facility] [address] [place] [address] Dr. Alicia PatelChloride [Moles/Vol]108 mmol/LCritically osaj46-222Ako St. [facility]S Medical CenterComment on above:Performed By: #### TSH, LIPID, T4, FT3, CMP #### [facility] [address] [place] [address] Dr. Alicia PatelCO2 [Moles/Vol]23.5 mmol/KQwjszo79.0-32.0The [facility] Comment on above:Performed By: #### TSH, LIPID, T4, FT3, CMP #### [facility] [address] [place] [address] Dr. Alicia PatelCreatinine [Mass/Vol]2.41 mg/dLCritically high0.70-1.30The [facility] CenterComment on above:Performed By: #### TSH, LIPID, T4, FT3, CMP #### [facility] [address] [place] [address] Dr. Alicia DunnGFR-AF FENXPGLH42 mL/min/1.62l4Fxlvhffczq low>=60The [facility] Medical CenterComment on above:Performed By: #### TSH, LIPID, T4, FT3, CMP #### [facility] [address] [place] [address] Dr. Alicia DunnGFR-NON AF JXULXGJK43 mL/min/1.52c1Ydjslkpflx low>=60The [facility] CenterComment on above:Performed By: #### TSH, LIPID, T4, FT3, CMP #### [facility] [address] [place] [address] Dr. Alicia PatelGlucose [Mass/Vol]74 mg/vGSqtfxt27-912UduOhiohealth Dublin Methodist Hospital Comment on above:Performed By: #### TSH, LIPID, T4, FT3, CMP #### [facility] [address] [place] [address] Dr. Alicia PatelPotassium [Moles/Vol]4.4 mmol/LNormal3.5-5.1[facility] Comment on above:Performed By: #### TSH, LIPID, T4, FT3, CMP #### [facility] [address] [place] [address] Dr. Alicia PatelSodium [Moles/Vol]141 mmol/UUmesbh615-820PeoOhiohealth Dublin Methodist Hospital Comment on above:Performed By: #### TSH, LIPID, T4, FT3, CMP #### [facility] [address] [place] [address] Dr. Alicia PatelUrea nitrogen [Mass/Vol]36.0 mg/dLCritically high7.0-18.0The [facility] CenterComment on above:Performed By: #### TSH, LIPID, T4, FT3, CMP #### [facility] [address] [place] [address] Dr. Alicia PatelUrea nitrogen/Creatinine [Mass ratio]14.9 mg/mgNormalThe St. [facility]S Medical CenterComment on above:Performed By: #### TSH, LIPID, T4, FT3, CMP #### [facility] [address] [place] [address] Dr. Alicia Le, HIGH SENSITIVITYon 76-94-7082PEKIFR1.6 pg/mLNormal 4.0-76.1The [facility] CenterComment on above:Result Comment: CUT-OFF POINTS HAVE BEEN ESTABLISHED BASED ON THE FOURTH UNIVERSAL DEFINITIONS OF MYOCARDIAL INFARCTION. THE UPPER REFERENCE LIMIT (URL) OF TROPONIN, DEFINED THE 99TH PERCENTILE OF cTnI DISTRIBUTION IN A REFERENCE POPULATION, HAS BEEN CONFIRMED THE DECISION THRESHOLD FOR [place] DIAGNOSIS.Performed By: #### TSH, LIPID, T4, FT3, CMP #### [facility] [address] [place] [address] Dr. Alicia PatelCHEMISTRYOrdered By: Lab ROPUser on 49-77-7113Lurqqly [Mass/Vol] 101 mg/sIXcjm60 - 99 mg/dLJEFFERSON COUNTY HOS[facility]ITAL – [place] POC SubsectionComment on above:Result Comment: Notified RN/MDPOC Device [id number] Interpretation CodeJEFFERSON COUNTY HOSPITAL – [place] POC SubsectionPOC User [id number] Interpretation CodeJEFFERSON COUNTY [facility] [place] POC SubsectionPOC UsernameFRASHER, CYNTHIAInvalid Interpretation CodeJEFFERSON COUNTY [facility] [place] POC SubsectionPTH INTACT on 78-23-3082PMD, Vitjfp28 pg/bEAvkpnx17-14Hbo St. [facility] CenterComment on above:Performed By: #### TSH, LIPID, T4, FT3, CMP #### [facility] [address] [place] [address] Dr. Alicia PatelHEMOGRAM AND PLATELon 87-93-3916Ovphynkmiz (Bld) [Volume fraction]32.9 %Critically low42.0-54.0The [facility] CenterComment on above: Performed By: #### TSH, LIPID, T4, FT3, CMP #### [facility] [address] [place] [address] Dr. Yilan ChangHemoglobin (Bld) [Mass/Vol]10.9 g/dLCritically low14.0-18.0The [facility] CenterComment on above:Performed By: #### TSH, LIPID, T4, FT3, CMP #### [facility] [address] [place] [address] Dr. Alicia Nixon (RBC) [Entitic mass]32.6 gxRcvqbp03.9-34.0The [facility] CenterComment on above:Performed By: #### TSH, LIPID, T4, FT3, CMP #### [facility] [address] [place] [address] Dr. [facility] PatelMETROPOL[facility] (RBC) [Mass/Vol]33.1 g/yMGbnioq52.9-35.2The [facility] CenterComment on above:Performed By: #### TSH, LIPID, T4, FT3, CMP #### [facility] [address] [place] [address] Dr. Alicia NixonV (RBC) [Entitic vol]98.5 fLCritically high80.0-94.0The [facility] CenterComment on above:Performed By: #### TSH, LIPID, T4, FT3, CMP #### [facility] [address] [place] [address] Dr. Alicia PatelPLT145 103/ulCritically jfb271-567Icu St[facility] CenterComment on above:Performed By: #### TSH, LIPID, T4, FT3, CMP #### [facility] [address] [place] [address] Dr. Alicia PatelRBC3.34 106/ulCritically low4.70-6.10The [facility] CenterComment on above:Performed By: #### TSH, LIPID, T4, FT3, CMP #### [facility] [address] [place] [address] Dr. Alicia PatelWBC5.1 103/ulNormal4.0-11.0The [facility] CenterComment on above: Performed By: #### TSH, LIPID, T4, FT3, CMP #### [facility] [address] [place] [address] Dr. Alicia PatelMAGNESIUMon 55-39-0137Mglcudaxr [Mass/Vol]1.5 mg/dLCritically low 1.8-2.4The [facility] CenterComment on above:Performed By: #### TSH, LIPID, T4, FT3, CMP #### [facility] [address] [place] [address] Dr. Alicia PatelRENAL FUNCTION PANELon 33-52-2558Jmjsvdt [Mass/Vol]3.5 g/dLNormal 3.4-5.0The [facility] CenterComment on above:Performed By: #### URTPCR #### [facility] [address] [place] [address] Dr. Alicia PatelCalcium [Mass/Vol]8.4 mg/dLCritically low8.5-10.1The [facility] CenterComment on above:Performed By: #### URTPCR #### [facility] [address] [place] [address] Dr. Alicia PatelChloride [Moles/Vol]107 mmol/SYrmkez29-622Szl [facility] Comment on above:Performed By: #### URTPCR #### [facility] [address] [place] [address] Dr. Alicia PatelCO2 [Moles/Vol]25.1 mmol/CGxbrnu43.0-32.0The [facility] Comment on above:Performed By: #### URTPCR #### [facility] [address] [place] [address] Dr. Alicia PatelCreatinine [Mass/Vol]1.96 mg/dLCritically high0.70-1.30The [facility] CenterComment on above:Performed By: #### URTPCR #### [facility] [address] [place] [address] Dr. Alicia Langley-AF JXEOUCQI81 mL/min/1.78o6Zqcglfqkib low>=60The [facility] CenterComment on above:Performed By: #### URTPCR #### [facility] [address] [place] [address] Dr. Yilan ChangEGFR-NON AF PTXVUJDS97 mL/min/1.89c5Nqjgvddebu low>=60The [facility] CenterComment on above:Performed By: #### URTPCR #### [facility] [address] [address] [address] Alicia PatelGlucose [Mass/Vol]151 mg/dLCritically qtae66-743Pxm St. [facility] CenterComment on above:Performed By: #### URTPCR #### [facility] [address] [address] [address] Alicia PatelPhosphate [Mass/Vol]3.5 mg/dLNormal2.6-4.7The [facility] Comment on above:Performed By: #### URTPCR #### [facility] [address] [place] [address] Dr. Alicia PatelPotassium [Moles/Vol]4.3 mmol/LNormal3.5-5.1[facility] Comment on above:Performed By: #### URTPCR #### [facility] [address] [place] [address] Dr. Alicia PatelSodium [Moles/Vol]142 mmol/ZJpfufj706-960EoxOhiohealth Dublin Methodist Hospital Comment on above:Performed By: #### URTPCR #### [facility] [address] [place] [address] Dr. Alicia PatelUrea nitrogen [Mass/Vol]23.0 mg/dLCritically high7.0-18.0The [facility] CenterComment on above:Performed By: #### URTPCR #### [facility] [address] [place] [address] Dr. Alicia Mathew RANDOM W/MICROSCOPICon 32-34-5010DYBAKCLWLNUVXDdapsiemZLKP SEENThe St. [facility] CenterComment on above:Performed By: #### TSH, LIPID, T4, FT3, CMP #### [facility] [address] [place] [address] Dr. Alicia PatelBilirubin Ql (U)NegativeNormalNEGATIVEThe [facility] Comment on above:Performed By: #### TSH, LIPID, T4, FT3, CMP #### [facility] [address] [address] [address] Alicia Pruett SEENNormalNONE SEENVan Wert County Hospital on above:Performed By: #### TSH, LIPID, T4, FT3, CMP #### [facility] [address] [address] [address] Alicia Brizuelaarity (U)CLEARNormalCLEAROhiohealth Dublin Methodist HospitalComment on above: Performed By: #### TSH, LIPID, T4, FT3, CMP #### [facility] [address] [address] [address] Alicia Perera (U)LT. YELLOWNormalYELLOWOhiohealth Dublin Methodist HospitalComment on above:Performed By: #### TSH, LIPID, T4, FT3, CMP #### [facility] [address] [address] [address] Alicia PatelCrystals LM Nom (Urine sed)NONE SEENNormalNONE SEENOhiohealth Dublin Methodist HospitalComtrinity health [facility] on above:Performed By: #### TSH, LIPID, T4, FT3, CMP #### [facility] [address] [address] [address] Vargas ChangEpithelial cells LM Ql (Urine sed)RARENormalNONE SEEN /RAREOhiohealth Dublin Methodist HospitalComtrinity health [facility] on above:Performed By: #### TSH, LIPID, T4, FT3, CMP #### [facility] [address] [address] [address] Alicia PatelGlucose Ql (U)500 mg/dlAbnormalNEGCleveland Clinic Akron General Comment on above:Performed By: #### TSH, LIPID, T4, FT3, CMP #### [facility] [address] [address] [address] Alicia PatelHemoglobin Ql (U)LARGEAbnoLima Memorial Hospital Comment on above:Performed By: #### TSH, LIPID, T4, FT3, CMP #### [facility] [address] [address] [address] Alicia Namones Ql (U)NegativeNormalNEGATIVEThe Charito HospitalComment on above:Performed By: #### TSH, LIPID, T4, FT3, CMP #### [facility] [address] [place] [address] Dr. Alicia PatelLEUKOCYTESNegativeNormalNEGATIVEThe St. [facility] CenterComtrinity [facility] on above:Performed By: #### TSH, LIPID, T4, FT3, CMP #### [facility] [address] [place] [address] Dr. Alicia RuggieroCOUSNONEssence SEENNormalNONE SEENThe St. [facility] CenterComment on above:Performed By: #### TSH, LIPID, T4, FT3, CMP #### [facility] [address] [place] [address] Dr. Alicia Porter Ql (U)NegativeNormalNEGATIVEThe St. [facility] CenterComment on above:Performed By: #### TSH, LIPID, T4, FT3, CMP #### [facility] [address] [place] [address] Dr. Alicia PatelpH (U)6.0 [pH]Normal5-9UC Medical Centerment on above: Performed By: #### TSH, LIPID, T4, FT3, CMP #### [facility] [address] [place] [address] Dr. Alicia PatelSzpbpUCD91-28Cciwsxzi2-2Hyy [facility] on above: Performed By: #### TSH, LIPID, T4, FT3, CMP #### [facility] [address] [place] [address] Dr. Alicia PatelSPEC GRAVITY1.706Axrhwn3.005-<=1.025The [facility] on above:Performed By: #### TSH, LIPID, T4, FT3, CMP #### [facility] [address] [place] [address] Dr. Alicia Mathew JSQGDFE608 mg/dlAbnormalNEGATIVE/ TRACEThe [facility] Comment on above:Performed By: #### TSH, LIPID, T4, FT3, CMP #### [facility] [address] [place] [address] Dr. Yilan ChangUrobilinogen Qn (U)0.2 {Wil'U}/dLNormal0.2 - 1.0The [facility] CenterComment on above:Performed By: #### TSH, LIPID, T4, FT3, CMP #### [facility] [address] [place] [address] Dr. Alicia PatelWBC0-2AbnormalNONE [address] [facility] Medical CenterComment on above: Performed By: #### TSH, LIPID, T4, FT3, CMP #### [facility] [address] [place] [address] Dr. Alicia PatelURIC ACID SERUMon 16-85-6588Mrtit [Mass/Vol]5.8 mg/dLNormal 3.5-7.2The [facility] CenterComment on above:Performed By: #### URTPCR #### [facility] [address] [place] [address] Dr. Alicia Friend T PROTEIN CREAT RATIOon 94-16-0097Mfsnzyh (U) [Mass/Vol] 122.4 mg/dLCritically high<=12.0The [facility] CenterComment on above:Performed By: #### URTPCR #### [facility] [address] [place] [address] Dr. Alicia Nj PROT CREAT RAT1.38NoProMedica Defiance Regional HospitalComment on above: Performed By: #### URTPCR #### [facility] [address] [place] [address] Dr. Alicia Friend CREAT88.74 mg/fOInecvy56.00-300.00The [facility] Comment on above:Performed By: #### URTPCR #### [facility] [address] [place] [address] Dr. Alicia Upton D 25 OHon 20-38-1504DQS D 25-OH58.0 ng/mLNormalOhiohealth Dublin Methodist HospitalComment on above:Performed By: #### TSH, LIPID, T4, FT3, CMP #### [facility] [address] [place] [address] Dr. Alicia Eli RANGESSEE BELOWFlower HospitalComment on above: Result Comment: <20 ng/mL Vit D deficient 20 - <30 ng/mL Vit D insufficient 30 - 100 ng/mL Vit D sufficient >100 ng/mL Potential ToxicityPerformed By: #### TSH, LIPID, T4, FT3, CMP #### [facility] [address] [address] [address] Alicia Mathis KIDNEYSon 49-55-1371IO KIDNEYSEXAMINATION: US KIDNEYS HISTORY: Kidney stone COMPARISON: [...] Electronically authenticated by: TYLER MONSIVAIS Date: 2022-09-01 09:33Flower HospitalPSA, FREE AND TOTAL RATIOon 08-25-2022% Free PSA13.7 %NormalThe St. [facility]S Medical CenterComment on above:Result Comment: The table below lists [...] T4, FT3, CMP #### [facility] [address] [place] [address] Dr. Alicia PatelProstate specific Ag [Mass/Vol]6.2 ng/mLCritically high0.0-4.0The [facility] CenterComment on above:Result Comment: Brenda ECLIA methodology. . According to the [employer] [employer], Serum PSA should decrease and [...] T4, FT3, CMP #### [facility] [address] [place] [address] Dr. Alicia PatelPSA, Free0.85 ng/mLNormalN/AThe St. [facility]S Medical CenterComment on above:Result Comment: Brenda ECLIA methodology.Performed By: #### TSH, LIPID, T4, FT3, CMP #### [facility] [address] [place] [address] Dr. Alicia Ordonez BLD IMMUNO SCREENon 61-58-5391WALWJI BLOODNegativeNormal NEGATIVEThe St. [facility]S Medical CenterComment on above:Performed By: #### TSH, LIPID, T4, FT3, CMP #### [facility] [address] [place] [address] Dr. Alicia PatelCBC AUTO DIFFon 32-09-5382JPGP #0.0 103/ulNormal0.0-0.1The [facility] Medical CenterComment on above:Performed By: #### URTPCR #### [facility] [address] [place] [address] Dr. Alicia PatelBasophils/100 WBC (Bld)0.3 %Normal0.2-2.0The [facility] Comment on above:Performed By: #### URTPCR #### [facility] [address] [place] [address] Dr. Alicia Coats #0.2 103/ulNormal0.0-0.7The [facility] CenterComment on above: Performed By: #### URTPCR #### [facility] [address] [place] [address] Dr. Alicia Dunnosinophils/100 WBC (Bld)3.2 %Normal0.9-7.0[facility] Comment on above:Performed By: #### URTPCR #### [facility] [address] [place] [address] Dr. Alicia Dunnrythrocyte distribution width (RBC) [Ratio]12.9 %Hramdk01.0-15.0 [facility] HospitalComment on above:Performed By: #### URTPCR #### [facility] [address] [place] [address] Dr. Alicia PatelHematocrit (Bld) [Volume fraction]35.4 %Critically low42.0-54.0 [facility] HospitalComment on above:Performed By: #### URTPCR #### [facility] [address] [place] [address] Dr. Alicia PatelHemoglobin (Bld) [Mass/Vol]11.7 g/dLCritically low14.0-18.0[facility] HospitalComment on above:Performed By: #### URTPCR #### [facility] [address] [place] [address] Dr. Alicia Bell #0.08 10e3/ulCritically high0.00-0.03The [facility] Comment on above:Performed By: #### URTPCR #### [facility] [address] [place] [address] Dr. Alicia Bell %1.2 %Critically high0.0-0.5The [facility] Medical CenterComment on above:Performed By: #### URTPCR #### [facility] [address] [place] [address] Dr. Alicia Magallon #1.1 103/ulCritically low1.2-3.8The [facility] Comment on above:Performed By: #### URTPCR #### [facility] [address] [place] [address] Dr. Alicia Lebronmphocytes/100 WBC (Bld)16.6 %Critically low20.5-60.0The [facility] CenterComment on above:Performed By: #### URTPCR #### [facility] [address] [place] [address] Dr. Alicia KincaidUAL DIFF REQNONormalThe St. [facility]S Medical CenterComment on above: Performed By: #### URTPCR #### [facility] [address] [place] [address] Dr. Alicia Nixon (RBC) [Entitic mass]32.4 yiUevifu93.9-34.0The [facility] CenterComment on above:Performed By: #### URTPCR #### [facility] [address] [place] [address] Dr. Alicia Nixon (RBC) [Mass/Vol]33.1 g/cWJyrbfx46.9-35.2The [facility] CenterComment on above:Performed By: #### URTPCR #### [facility] [address] [place] [address] Dr. Alicia Villanueva (RBC) [Entitic vol]98.1 fLCritically high80.0-94.0The [facility]. [facility]S Medical CenterComment on above:Performed By: #### URTPCR #### [facility] [address] [place] [address] Dr. Alicia Merchant #0.6 103/ulNormal0.3-0.8The [facility]S Medical CenterComment on above:Performed By: #### URTPCR #### [facility] [address] [place] [address] Dr. Alicia Carpenterocytes/100 WBC (Bld)8.8 %Normal1.7-12.0The [facility] Comment on above:Performed By: #### URTPCR #### [facility] [address] [place] [address] Dr. Yilan ChangNEUT #4.8 103/ulNormal1.4-6.5The [facility] CenterComment on above:Performed By: #### URTPCR #### [facility] [address] [place] [address] Dr. Alicia Kapoorutrophils/100 WBC (Bld)69.9 %Xbdwne86.0-75.0The [facility] CenterComment on above:Performed By: #### URTPCR #### [facility] [address] [place] [address] Dr. Alicia PatelPlatelet mean volume (Bld) [Entitic vol]10.4 fLNormal9.5-13.5The [facility]S [facility] CenterComment on above:Performed By: #### URTPCR #### [facility] [address] [place] [address] Dr. Alicia PatelPLT200 103/azNmifsu119-220Nrn St[facility]S Medical CenterComment on above: Performed By: #### URTPCR #### [facility] [address] [place] [address] Dr. Alicia PatelRBC3.61 106/ulCritically low4.70-6.10The [facility] CenterComment on above:Performed By: #### URTPCR #### [facility] [address] [place] [address] Dr. Alicia PatelWBC6.8 103/ulNormal4.0-11.0The [facility] CenterComment on above: Performed By: #### URTPCR #### [facility] [address] [place] [address] Dr. Alicia PatelFREE T3on 50-94-1785KDON T31.91 pg/mlLCritically low2.18-3.98The [facility] CenterComtrinity health [facility] on above:Performed By: #### TSH, LIPID, T4, FT3, CMP #### [facility] [address] [place] [address] Dr. Alicia PatelGLYCOHEMOGLOBIN A1Con 40-49-4646UKR RECOMMENDATIONSEE BELOWNormal The St. [facility]S Medical CenterComment on above:Result Comment: ADA RECOMMENDED LIMIT 4.0 - 6.0 ADA THERAPEUTIC TARGET < 7.0 ACTION SUGGESTED > 7.0Performed By: #### TSH, LIPID, T4, FT3, CMP #### [facility] [address] [place] [address] Dr. Alicia PatelGlucose [Mass/Vol]194 mg/dLFlower HospitalComment on above:Performed By: #### TSH, LIPID, T4, FT3, CMP #### [facility] [address] [place] [address] Dr. Alicia PatelHbA1c (Bld) [Mass fraction]8.4 %Critically high4.5-6.2[facility] HospitalComment on above:Performed By: #### TSH, LIPID, T4, FT3, CMP #### [facility] [address] [place] [address] Dr. Alicia PatelLIPID PROFILEon [id number]-HDL RATIO NORMSEE BELOWFlower HospitalComment on above:Result Comment: 3.3 - 4.4 LOW RISK 4.4 - 7.1 AVERAGE RISK 7.1 - 11.0 MODERATE RISK >11.0 HIGH RISKPerformed By: #### TSH, LIPID, T4, FT3, CMP #### [facility] [address] [place] [address] Dr. Alicia Pooleesterol [Mass/Vol]120 mg/dLNormal<=200The [facility] Comment on above:Performed By: #### TSH, LIPID, T4, FT3, CMP #### [facility] [address] [place] [address] Dr. Alicia Pooleesterol in HDL [Mass/Vol]30 mg/dLCritically isi76-88PsvOhiohealth Dublin Methodist HospitalComment on above:Performed By: #### TSH, LIPID, T4, FT3, CMP #### [facility] [address] [place] [address] Dr. Alicia Pooleesterol in LDL [Mass/Vol]59.8 mg/dLFlower HospitalComment on above:Performed By: #### TSH, LIPID, T4, FT3, CMP #### [facility] [address] [address] [address] Alicia PatelCholesterol.total/Cholesterol in HDL [Mass ratio]4.0 {ratio} NormalThe [facility] on above:Performed By: #### TSH, LIPID, T4, FT3, CMP #### [facility] [address] [place] [address] Dr. Alicia Drew NORMAL> or = 60 mg/dl - LOW CARDIOVASCULAR RISK <40 mg/dl - HIGH CARDIOVASCULAR RISKFlower HospitalComtrinity health [facility] on above:Performed By: #### TSH, LIPID, T4, FT3, CMP #### [facility] [address] [place] [address] Dr. Alicia Do CALC NORMALSEE BELOWFlower HospitalComment on above:Result Comment: <100 mg/dl OPTIMAL 100 - 129 mg/dl NEAR OR ABOVE OPTIMAL 130 - 159 mg/dl BORDERLINE HIGH 160 - 189 mg/dl HIGH >190 mg/dl VERY HIGH Performed By: #### TSH, LIPID, T4, FT3, CMP #### [facility] [address] [place] [address] Dr. Alicia PatelTriglyceride [Mass/Vol]151 mg/dLCritically high<=150The [facility] on above:Performed By: #### TSH, LIPID, T4, FT3, CMP #### [facility] [address] [place] [address] Dr. Alicia SappLDL CALC30.2 mg/dLNoProMedica Defiance Regional HospitalComtrinity health [facility] on above: Performed By: #### TSH, LIPID, T4, FT3, CMP #### [facility] [address] [place] [address] Dr. Alicia PatelPROSmita 14(COMP METB)on 75-36-4334Pebgamd [Mass/Vol]3.3 g/dL Critically low3.4-5.0The [facility] on above:Performed By: #### TSH, LIPID, T4, FT3, CMP #### [facility] [address] [place] [address] Dr. Alicia PatelAlbumin/Globulin [Mass ratio]0.9 {ratio}NormalThe St. [facility]'S Medical CenterComment on above:Performed By: #### TSH, LIPID, T4, FT3, CMP #### [facility] [address] [address] [address] Alicia Estrella [Catalytic activity/Vol]79 U/PKcaxko06-025Nln [facility] Hospitalment on above:Performed By: #### TSH, LIPID, T4, FT3, CMP #### [facility] [address] [address] [address] Alicia Mejia [Catalytic activity/Vol]61 U/JDnbzmm24-92Dqe St. [facility]S Medical CenterComment on above:Performed By: #### TSH, LIPID, T4, FT3, CMP #### [facility] [address] [place] [address] Dr. Alicia Slateron gap [Moles/Vol]12.6 mmol/LNormalThe [facility] Comment on above:Performed By: #### TSH, LIPID, T4, FT3, CMP #### [facility] [address] [place] [address] Dr. Alicia PatelAST [Catalytic activity/Vol]39 U/LCritically qcfj55-44Diu St[facility] Medical CenterComment on above:Performed By: #### TSH, LIPID, T4, FT3, CMP #### [facility] [address] [place] [address] Dr. Alicia PatelBilirubin [Mass/Vol]0.7 mg/dLNormal0.2-1.0The [facility] Comment on above:Performed By: #### TSH, LIPID, T4, FT3, CMP #### [facility] [address] [place] [address] Dr. Alicia PatelCalcium [Mass/Vol]8.9 mg/dLNormal8.5-10.1The [facility] Comment on above:Performed By: #### TSH, LIPID, T4, FT3, CMP #### [facility] [address] [place] [address] Dr. Alicia PatelChloride [Moles/Vol]111 mmol/LCritically clmb42-446Xnl St[facility] Medical CenterComment on above:Performed By: #### TSH, LIPID, T4, FT3, CMP #### [facility] [address] [place] [address] Dr. Alicia PatelCO2 [Moles/Vol]24.0 mmol/IXtwmgk50.0-32.0The [facility] Comment on above:Performed By: #### TSH, LIPID, T4, FT3, CMP #### [facility] [address] [place] [address] Dr. Alicia PatelCreatinine [Mass/Vol]1.80 mg/dLCritically high0.70-1.30The [facility] CenterComment on above:Performed By: #### TSH, LIPID, T4, FT3, CMP #### [facility] [address] [place] [address] Dr. Alicia DunnGFR-AF VQNGODYA76 mL/min/1.86y0Qdhdzqzzwa low>=60The [facility] CenterComment on above:Performed By: #### TSH, LIPID, T4, FT3, CMP #### [facility] [address] [place] [address] Dr. Alicia DunnGFR-NON AF TEEQBJLB55 mL/min/1.77k7Osjzxrknfv low>=60The [facility] CenterComment on above:Performed By: #### TSH, LIPID, T4, FT3, CMP #### [facility] [address] [place] [address] Dr. Alicia PatelGlobulin (S) [Mass/Vol]3.5 g/dLNormalThe St. [facility]S Medical CenterComment on above:Performed By: #### TSH, LIPID, T4, FT3, CMP #### [facility] [address] [place] [address] Dr. Alicia PatelGlucose [Mass/Vol]118 mg/dLCritically qxxh32-524Eum [facility] Hospitalment on above:Performed By: #### TSH, LIPID, T4, FT3, CMP #### [facility] [address] [place] [address] Dr. Alicia PatelPotassium [Moles/Vol]4.6 mmol/LNormal3.5-5.1The [facility] Comment on above:Performed By: #### TSH, LIPID, T4, FT3, CMP #### [facility] [address] [place] [address] Dr. Alicia PatelProtein [Mass/Vol]6.8 g/dLNormal6.4-8.2The [facility] Comment on above:Performed By: #### TSH, LIPID, T4, FT3, CMP #### [facility] [address] [place] [address] Dr. Alicia PatelSodium [Moles/Vol]143 mmol/TEbawka241-624Tlq [facility] Comment on above:Performed By: #### TSH, LIPID, T4, FT3, CMP #### [facility] [address] [place] [address] Dr. Alicia PatelUrea nitrogen [Mass/Vol]31.0 mg/dLCritically high7.0-18.0The [facility] CenterComment on above:Performed By: #### TSH, LIPID, T4, FT3, CMP #### [facility] [address] [place] [address] Dr. Alicia Nguyễn nitrogen/Creatinine [Mass ratio]17.2 mg/mgNormalThe St. [facility]'S Medical CenterComment on above:Performed By: #### TSH, LIPID, T4, FT3, CMP #### [facility] [address] [place] [address] Dr. Alicia Mena 88-62-6635B6 [Mass/Vol]7.70 ug/dLNormal4.50-12.10The [facility] CenterComment on above:Performed By: #### TSH, LIPID, T4, FT3, CMP #### [facility] [address] [place] [address] Dr. Alicia Pinto 05-90-6985UJI7.138 uIU/mLNormal0.358-3.740The [facility] CenterComment on above:Performed By: #### TSH, LIPID, T4, FT3, CMP #### [facility] [address] [place] [address] Dr. Alicia SalgueroAL FUNCTION PANELon 62-70-4338Uaswqko [Mass/Vol]3.3 g/dL Critically low3.4-5.0The [facility] CenterComment on above:Performed By: #### URTPCR #### [facility] [address] [address] [address] Alicia PatelCalcium [Mass/Vol]8.3 mg/dLCritically low8.5-10.1The [facility] CenterComment on above:Performed By: #### URTPCR #### [facility] [address] [address] [address] Alicia PatelChloride [Moles/Vol]109 mmol/LCritically bics38-153Eay [facility] CenterComment on above:Performed By: #### URTPCR #### [facility] [address] [place] [address] Dr. Alicia PatelCO2 [Moles/Vol]22.1 mmol/BEykgfo36.0-32.0The [facility] Comment on above:Performed By: #### URTPCR #### [facility] [address] [address] [address] Alicia PatelCreatinine [Mass/Vol]2.14 mg/dLCritically high0.70-1.30The [facility] CenterComment on above:Performed By: #### URTPCR #### [facility] [address] [address] [address] Vargas ChangEGFR-AF KMZZPDFK45 mL/min/1.23t6Tmqfhcwavw low>=60The [facility] CenterComment on above:Performed By: #### URTPCR #### [facility] [address] [address] [address] Alicia DunnGFR-NON AF UECFUIEY30 mL/min/1.63j9Attetofrdu low>=60The [facility] CenterComment on above:Performed By: #### URTPCR #### [facility] [address] [address] [address] Alicia PatelGlucose [Mass/Vol]102 mg/bFWhwhwn59-759Bse [facility] Comment on above:Performed By: #### URTPCR #### [facility] [address] [address] [address] Alicia PatelPhosphate [Mass/Vol]3.1 mg/dLNormal2.6-4.7The [facility] Comment on above:Performed By: #### URTPCR #### [facility] [address] [address] [address] Alicia PatelPotassium [Moles/Vol]3.9 mmol/LNormal3.5-5.1[facility] Comment on above:Performed By: #### URTPCR #### [facility] [address] [address] [address] Alicia PatelSodium [Moles/Vol]141 mmol/ZIddmox902-641Eii [facility] Comment on above:Performed By: #### URTPCR #### [facility] [address] [address] [address] Alicia PatelUrea nitrogen [Mass/Vol]41.0 mg/dLCritically high7.0-18.0[facility] HospitalComment on above:Performed By: #### URTPCR #### [facility] [address] [address] [address] Alicia PatelCreatinine and Glomerular filtration rate.predicted panel (S/P/Bld)Ordered By: Hiral Interiano on 32-18-1580Tkkjpbajeg [Mass/Vol]3.46 mg/dL 0.64-1.27[facility] HospitalComment on above:Delta: 6.60 on 08/14/22-0433Estimated glomerular filtration rate (GFR) non- Ordered By: Hiral Interiano on 71-62-2235LDX/1.73 sq M.predicted among non-blacks MDRD (S/P/Bld) [Vol rate/Area]17 mL/MinMiami Valley HospitalGlucose Glucometer (BldC) [Mass/Vol]Ordered By: Hiral Interiano on 00-28-5066Lnkqatx [Mass/Vol]135 mg/dLMiami Valley HospitalComment on above:Random Glucose Reference Range is dependent on time and content of last meal. Glucose of more than 200 mg/dL in a nonstressed, ambulatory subject supports the diagnosis of Diabetes Mellitus.No Panel InformationOrdered By: Hiral Interiano on 36-55-5985Ipddxgdxk GFR ()21 mL/MinMiami Valley HospitalComment on above:GFR estimated reference range: According to KDOQI guidelines, <60 ml/min/1.73m2 is sufficient todiagnose a patient with chronic kidney disease.Pharmacy Creatinine Clearance (Chem21.94[facility] Hospitalerum or plasma anion gap determinationOrdered By: Hiral Interiano on 49-82-8973Hxysp gap [Moles/Vol]10.3 mmol/L6.0-15.0[facility] Hospitalerum or plasma calcium measurement (mass/volume)Ordered By: Hiral Interiano on 60-80-9741Sjwzykn [Mass/Vol]7.7 mg/dL8.2-10.2FRiverside Methodist Hospitalerum or plasma chloride measurement (moles/volume)Ordered By: Hiral Interiano on 09-21-6391Kasvowgc [Moles/Vol]112 mmol/W59-230IvlrskvdvClinton Memorial Hospitalerum or plasma glucose measurement (mass/volume)Ordered By: Hiral Interiano on 65-78-4000Pkapcsj [Mass/Vol]140 mg/xY42-582DxpertwkxMiami Valley HospitalComment on above:ADA recommended reference rangeRandom Glucose Reference Range is dependent on time and content of last meal. Glucose of more than 200 mg/dL in a nonstressed, ambulatory subject supports the diagnosisof Diabetes Mellitus.Serum or plasma potassium measurement (moles/volume)Ordered By: Hiral Interiano on 49-47-9281Riawhfdev [Moles/Vol]3.8 mmol/L3.5-5.1FRiverside Methodist Hospitalerum or plasma sodium measurement (moles/volume)Ordered By: Hiral Interiano on 53-81-6364Lcfpkf [Moles/Vol]140 mmol/B662-817HakskinlaClinton Memorial Hospitalerum or plasma total carbon dioxide measurement (moles/volume)Ordered By: Hiral Interiano on 91-75-0396KK8 [Moles/Vol]21.5 mmol/L 22.0-30.0[facility] Hospitalerum or plasma urea nitrogen measurement (mass/volume)Ordered By: Hiral Interiano on 87-70-9054Hziz nitrogen [Mass/Vol]45 mg/dL9-23[facility] HospitalBasophils Auto (Bld) [#/Vol]Ordered By: Hiral Interiano on 10-62-2969Xqwkszsjq (Bld) [#/Vol]0.0 10*3/uL 0.0-0.2FRegional Medical CenterBasophils/100 WBC Auto (Bld)Ordered By: Hiral Interiano on 26-81-5831Wwctxqdej/100 WBC (Bld)0.2 %.[facility] HospitalEosinophils Auto (Bld) [#/Vol]Ordered By: Hiral Interiano on 49-18-3381Vyothfrexcf (Bld) [#/Vol]0.1 10*3/uL0.0-0.45[facility] HospitalEosinophils/100 WBC Auto (Bld)Ordered By: Hiral Interiano on 08-14-2022 Eosinophils/100 WBC (Bld)1.0 %.[facility] HospitalErythrocyte distribution width Auto (RBC) [Ratio]Ordered By: Hiral Interiano on 08-14-2022 Erythrocyte distribution width (RBC) [Ratio]13.5 %12.0-14.8[facility] HospitalHematocrit Auto (Bld) [Volume fraction]Ordered By: Hiral Interiano on 45-61-5674Yvmyrqlvlg (Bld) [Volume fraction]35.4 %38.8-50.0[facility] HospitalHemoglobin [Mass/volume] in BloodOrdered By: Hiral Interiano on 76-81-7150Webunufqjq (Bld) [Mass/Vol]12.0 g/dL13.0-17.0[facility] HospitalLeukocytes [#/volume] corrected for nucleated erythrocytes in Blood by Automated counOrdered By: Hiral Interiano on 22-66-7220RPH corrected for nucl RBC Auto (Bld) [#/Vol]7.4 10*3/uL4.1-10.5FRegional Medical Center Lymphocytes Auto (Bld) [#/Vol]Ordered By: Hiral Interiano on 73-77-0573Nnsozesfjah (Bld) [#/Vol]0.6 10*3/uL1.00-4.8[facility] Lymphocytes/100 WBC Auto (Bld)Ordered By: Hiral Interiano on 08-14-2022 Lymphocytes/100 WBC (Bld)7.8 %.[facility] HospitalMCH Auto (RBC) [Entitic mass]Ordered By: Hiral Interiano on 26-24-0193MKK (RBC) [Entitic mass] 33.0 pg27.5-35.2FRegional Medical CenterMCHC Auto (RBC) [Mass/Vol] Ordered By: Hiral Interiano on 40-93-6321TDND (RBC) [Mass/Vol]33.9 g/dL32.5-35.6 [facility] HospitalMCV Auto (RBC) [Entitic vol]Ordered By: Hiral Interiano on 39-90-9652MNV (RBC) [Entitic vol]97.3 fL83.5-101[facility] HospitalMonocytes Auto (Bld) [#/Vol]Ordered By: Hiral Interiano on 09-43-2431Phsxwgmuu (Bld) [#/Vol]0.8 10*3/uL0.0-0.8[facility] HospitalMonocytes/100 WBC Auto (Bld)Ordered By: Hiral Interiano on 08-14-2022 Monocytes/100 WBC (Bld)11.4 %.[facility] HospitalNeutrophils Auto (Bld) [#/Vol]Ordered By: Hiral Interiano on 28-93-3178Tmhnzvtvqfq (Bld) [#/Vol]5.9 10*3/uL1.8-7.7FRegional Medical CenterNeutrophils/100 WBC Auto (Bld) Ordered By: Hiral Interiano on 50-49-1260Uzurdjorvet/100 WBC (Bld)79.6 %.[facility] HospitalNo Panel InformationOrdered By: Hiral Interiano on 74-13-8017Qrdwjgq Glucose CommentGlu2: cleaned meterMiami Valley HospitalNucleated erythrocytes [Presence] in Blood by Automated countOrdered By: Hiral Interiano on 73-53-4181Mbdsuglib RBC Auto Ql (Bld)0.1 /100{WBC}0-0.5 [facility] HospitalPlatelet mean volume Auto (Bld) [Entitic vol] Ordered By: Hiral Interiano on 00-86-8070Zygzsluy mean volume (Bld) [Entitic vol] 8.4 fL6.6-10.1FRegional Medical CenterPlatelets Auto (Bld) [#/Vol] Ordered By: Hiral Interiano on 25-57-3528Gudsmcuch (Bld) [#/Vol]121 10*3/gE711-231 [facility] HospitalRBC Auto (Bld) [#/Vol]Ordered By: Hiral Interiano on 08-74-7046DKL (Bld) [#/Vol]3.64 10*6/uL3.90-5.60[facility] HospitalWBC Auto (Bld) [#/Vol]Ordered By: Hiral Interiano on 75-06-7989GKO (Bld) [#/Vol]7.4 10*3/uL4.1-10.5FRegional Medical CenterBody fluid albumin measurement (mass/volume)Ordered By: Alicia León on 17-65-5427Dkbreie (Body fld) [Mass/Vol]3.0 g/dL3.2-5.5FRegional Medical CenterGlucose mean value [Mass/volume] in Blood Estimated from glycated hemoglobinOrdered By: Hiral Interiano on 70-10-3377Zsurjfw glucose Estimated from glycated hemoglobin (Bld) [Mass/Vol]212 mg/dLMiami Valley HospitalHemoglobin A1c percentage Ordered By: Hiral Interiano on 29-22-8709QiG1s (Bld) [Mass fraction]9.0 %4.3-5.6 [facility] HospitalComment on above:Increased risk for diabetes: 5.7 - 6.4diabetes: >6.4glycemic control for adults with diabetes: <7.0 Anisocytosis LM Ql (Bld)Ordered By: Hiral Interiano on 94-56-8235Sydsmvzmpcjk Ql (Bld)[facility] HospitalBand form neutrophils/100 WBC Manual cnt (Bld)Ordered By: Hiral Interiano on 33-90-9209Herk form neutrophils/100 WBC (Bld)1 %0-5FRegional Medical CenterBeta-hydroxybutyric acid measurement Ordered By: Alicia León on 00-95-6963Ngih hydroxybutyrate [Mass/Vol]2.40 mmol/L 0.05-0.27[facility] HospitalBurr cells [Presence] in Blood by Light microscopyOrdered By: Hiral Interiano on 84-38-5423Isyk cells LM Ql (Bld) [facility] HospitalCARDIAC GUIDO 3-6on 42-53-0385SB [Catalytic activity/Vol]162 U/FUgcorq99-185Aap [facility] CenterComment on above:Performed By: #### TSH, LIPID, T4, FT3, CMP #### [facility] [address] [place] [address] Dr. Alicia Kaur.MB [Mass/Vol]5.52 ng/mLCritically high<=3.60[facility] on above:Performed By: #### TSH, LIPID, T4, FT3, CMP #### [facility] [address] [place] [address] Dr. Alicia CaseyTROP19.7 pg/mLNormal4.0-76.1[facility] on above:Result Comment: CUT-OFF POINTS HAVE BEEN ESTABLISHED BASED ON THE FOURTH UNIVERSAL DEFINITIONS OF MYOCARDIAL INFARCTION. THE UPPER REFERENCE LIMIT (URL) OF TROPONIN, DEFINED THE 99TH PERCENTILE OF cTnI DISTRIBUTION IN A REFERENCE POPULATION, HAS BEEN CONFIRMED THE DECISION THRESHOLD FOR [place] DIAGNOSIS.Performed By: #### TSH, LIPID, T4, FT3, CMP #### [facility] [address] [place] [address] Dr. Alicia Kaur [Catalytic activity/Vol]150 U/JBzfxus53-906Bkc [facility] Hospitalment on above:Performed By: #### TSH, LIPID, T4, FT3, CMP #### [facility] [address] [place] [address] Dr. Alicia Kaur.MB [Mass/Vol]4.99 ng/mLCritically high<=3.60[facility] on above:Performed By: #### TSH, LIPID, T4, FT3, CMP #### [facility] [address] [place] [address] Dr. Alicia Israel16.9 pg/mLNormal4.0-76.1[facility] on above:Result Comment: CUT-OFF POINTS HAVE BEEN ESTABLISHED BASED ON THE FOURTH UNIVERSAL DEFINITIONS OF MYOCARDIAL INFARCTION. THE UPPER REFERENCE LIMIT (URL) OF TROPONIN, DEFINED THE 99TH PERCENTILE OF cTnI DISTRIBUTION IN A REFERENCE POPULATION, HAS BEEN CONFIRMED THE DECISION THRESHOLD FOR [place] DIAGNOSIS.Performed By: #### TSH, LIPID, T4, FT3, CMP #### [facility] [address] [place] [address] Dr. Alicia Tesfaye GUIDO ADMITon 42-62-8467HR [Catalytic activity/Vol]128 U/L Gniaea42-658Qlh [facility] on above:Performed By: #### TSH, LIPID, T4, FT3, CMP #### [facility] [address] [place] [address] Dr. Alicia Kaur.MB [Mass/Vol]4.95 ng/mLCritically high<=3.60[facility] on above:Performed By: #### TSH, LIPID, T4, FT3, CMP #### [facility] [address] [place] [address] Dr. Alicia Israel18.0 pg/mLNormal4.0-76.1[facility] on above:Result Comment: CUT-OFF POINTS HAVE BEEN ESTABLISHED BASED ON THE FOURTH UNIVERSAL DEFINITIONS OF MYOCARDIAL INFARCTION. THE UPPER REFERENCE LIMIT (URL) OF TROPONIN, DEFINED THE 99TH PERCENTILE OF cTnI DISTRIBUTION IN A REFERENCE POPULATION, HAS BEEN CONFIRMED THE DECISION THRESHOLD FOR [place] DIAGNOSIS.Performed By: #### TSH, LIPID, T4, FT3, CMP #### [facility] [address] [place] [address] Dr. Alicia StaleyO188 ng/mLCritically ofji74-72Swh [facility] CenterComment on above:Performed By: #### TSH, LIPID, T4, FT3, CMP #### [facility] [address] [place] [address] Dr. Alicia Boswell AUTO DIFFon 26-75-9950LUFQ #0.0 103/ulNormal0.0-0.1The [facility] Medical CenterComment on above:Performed By: #### TSH, LIPID, T4, FT3, CMP #### [facility] [address] [place] [address] Dr. Alicia PatelBasophils/100 WBC (Bld)0.3 %Normal0.2-2.0The [facility] Comment on above:Performed By: #### TSH, LIPID, T4, FT3, CMP #### [facility] [address] [place] [address] Dr. Alicia Coats #0.2 103/ulNormal0.0-0.7[facility] CenterComment on above: Performed By: #### TSH, LIPID, T4, FT3, CMP #### [facility] [address] [place] [address] Dr. Alicia Dunnosinophils/100 WBC (Bld)1.8 %Normal0.9-7.0[facility] Comment on above:Performed By: #### TSH, LIPID, T4, FT3, CMP #### [facility] [address] [place] [address] Dr. Alicia Dunnrythrocyte distribution width (RBC) [Ratio]13.2 %Xyllnx45.0-15.[address] [facility] CenterComment on above:Performed By: #### TSH, LIPID, T4, FT3, CMP #### [facility] [address] [place] [address] Dr. Alicia PatelHematocrit (Bld) [Volume fraction]36.0 %Critically low42.0-54.[address] [facility] CenterComment on above:Performed By: #### TSH, LIPID, T4, FT3, CMP #### [facility] [address] [place], [place] [id number] Dr. Alicia PatelHemoglobin (Bld) [Mass/Vol]12.0 g/dLCritically low14.0-18.0The [facility] CenterComment on above:Performed By: #### TSH, LIPID, T4, FT3, CMP #### [facility] [address] [place] [address] Dr. Alicia Bell #0.34 10e3/ulCritically high0.00-0.03The [facility] Comment on above:Performed By: #### TSH, LIPID, T4, FT3, CMP #### [facility] [address] [place] [address] Dr. Alicia Bell %3.8 %Critically high0.0-0.5The [facility] Medical CenterComment on above:Performed By: #### TSH, LIPID, T4, FT3, CMP #### [facility] [address] [place] [address] Dr. Alicia Magallon #0.5 103/ulCritically low1.2-3.8The [facility] Comment on above:Performed By: #### TSH, LIPID, T4, FT3, CMP #### [facility] [address] [place] [address] Dr. Alicia Gonzaleshocytes/100 WBC (Bld)5.9 %Critically low20.5-60.0The [facility] CenterComment on above:Performed By: #### TSH, LIPID, T4, FT3, CMP #### [facility] [address] [place] [address] Dr. Alicia KincaidUAL DIFF REQNONormalThe St. [facility]'S Medical CenterComment on above: Performed By: #### TSH, LIPID, T4, FT3, CMP #### [facility] [address] [place] [address] Dr. Alicia Madrigal (RBC) [Entitic mass]32.3 kfWaisuh15.9-34.0The [facility] Medical CenterComment on above:Performed By: #### TSH, LIPID, T4, FT3, CMP #### [facility] [address] [place] [address] Dr. Alicia Nixon (RBC) [Mass/Vol]33.3 g/mWBbdemt75.9-35.2The [facility] CenterComment on above:Performed By: #### TSH, LIPID, T4, FT3, CMP #### [facility] [address] [place] [address] Dr. Alicia Nixon (RBC) [Entitic vol]97.0 fLCritically high80.0-94.0The [facility] CenterComment on above:Performed By: #### TSH, LIPID, T4, FT3, CMP #### [facility] [address] [place] [address] Dr. Alicia Merchant #0.5 103/ulNormal0.3-0.8The [facility]S Medical CenterComment on above:Performed By: #### TSH, LIPID, T4, FT3, CMP #### [facility] [address] [place] [address] Dr. Alicia Carpenterocytes/100 WBC (Bld)5.5 %Normal1.7-12.0The [facility] Comment on above:Performed By: #### TSH, LIPID, T4, FT3, CMP #### [facility] [address] [place] [address] Dr. Alicia Bright #7.5 103/ulCritically high1.4-6.5The [facility] Comment on above:Performed By: #### TSH, LIPID, T4, FT3, CMP #### [facility] [address] [place] [address] Dr. Alicia Kapoorutrophils/100 WBC (Bld)82.7 %Critically high43.0-75.0The [facility]S Medical CenterComment on above:Performed By: #### TSH, LIPID, T4, FT3, CMP #### [facility] [address] [place] [address] Dr. Alicia Marks mean volume (Bld) [Entitic vol]10.2 fLNormal9.5-13.5The [facility]S Medical CenterComment on above:Performed By: #### TSH, LIPID, T4, FT3, CMP #### [facility] [address] [address] [address] Alicia PatelPLT191 103/gpKsikxg040-528Qra St. [facility]S Medical CenterComment on above: Performed By: #### TSH, LIPID, T4, FT3, CMP #### [facility] [address] [place] [address] Dr. Alicia PatelRBC3.71 106/ulCritically low4.70-6.10The [facility]S Medical CenterComment on above:Performed By: #### TSH, LIPID, T4, FT3, CMP #### [facility] [address] [place] [address] Dr. Alicia PatelWBC9.0 103/ulNormal4.0-11.0The [facility]S Medical CenterComment on above: Performed By: #### TSH, LIPID, T4, FT3, CMP #### [facility] [address] [place] [address] Dr. Alicia PatelCT ABD/PELVIS WO CONon 87-66-8984SW ABD/PELVIS WO CONEXAMINATION: CT ABD/PELVIS WO CON, [...] Electronically authenticated by: ILA GALLEGO Date: 2022-08-11 08:38NormRegency Hospital ToledoCovid-19 PCR (CVDTB)on 54-08-4104JWSD-CoV-2 (COVID-19) RNA SAVANNAH+probe Ql (Unsp spec)Not detectedNormalNOT DETECTEDOhiohealth Dublin Methodist Hospital Comment on above:Result Comment: When diagnostic [...] for this test is supported by the [place] of Health and Human Service's declaration that [...] T4, FT3, CMP #### [facility] [address] [place] [address] Dr. Alicia Lucero URINE PROFILEon 54-49-0786Ijbjxusif Ql (U)NegativeNormal NEGATIVEVan Wert County Hospital on above:Performed By: #### TSH, LIPID, T4, FT3, CMP #### [facility] [address] [place] [address] Dr. Alicia Wang (U)CLEARNormalCLEARVan Wert County Hospital on above: Performed By: #### TSH, LIPID, T4, FT3, CMP #### [facility] [address] [place] [address] Dr. Alicia Perera (U)LT. YELLOWNormalYELLOWVan Wert County Hospital on above:Performed By: #### TSH, LIPID, T4, FT3, CMP #### [facility] [address] [address] [address] Alicia Santo micrscopic examination will be performed if indicated. NormalUC Medical Centerment on above:Performed By: #### TSH, LIPID, T4, FT3, CMP #### [facility] [address] [address] [address] Alicia PatelGlucose Ql (U)NegativeNormalNEGATIVEOhiohealth Dublin Methodist HospitalComment on above:Performed By: #### TSH, LIPID, T4, FT3, CMP #### [facility] [address] [address] [address] Alicia PatelHemoglobin Ql (U)SMALLAbnormalNEGATIVECrystal Clinic Orthopedic Center on above:Performed By: #### TSH, LIPID, T4, FT3, CMP #### [facility] [address] [address] [address] Alicia PatelKetones Ql (U)NegativeNormalNEGATIVEOhiohealth Dublin Methodist HospitalComment on above:Performed By: #### TSH, LIPID, T4, FT3, CMP #### [facility] [address] [address] [address] Alicia PatelLEUKOCYTESNegativeNormalNEGATIVEVan Wert County Hospital on above:Performed By: #### TSH, LIPID, T4, FT3, CMP #### [facility] [address] [address] [address] Alicia PatelNitrite Ql (U)NegativeNormalNEGATIVEOhiohealth Dublin Methodist HospitalComment on above:Performed By: #### TSH, LIPID, T4, FT3, CMP #### [facility] [address] [address] [address] Alicia PatelpH (U)6.0 [pH]Normal5-9Ohio[facility] HospitalComtrinity health [facility] on above: Performed By: #### TSH, LIPID, T4, FT3, CMP #### [facility] [address] [address] [address] Alicia PatelProtein (U) [Mass/Vol]100 mg/dLAbnormalNEGATIVE/ TRACEThe St. [facility]S Medical CenterComment on above:Performed By: #### TSH, LIPID, T4, FT3, CMP #### [facility] [address] [place] [address] Dr. lAicia PatelSPEC GRAVITY1.442Yptgoy4.005-<=1.025The St. [facility]'S Medical CenterComment on above:Performed By: #### TSH, LIPID, T4, FT3, CMP #### [facility] [address] [address] [address] Alicia Nj MICRO INDINDICATEDFlower HospitalComment on above: Performed By: #### TSH, LIPID, T4, FT3, CMP #### [facility] [address] [place] [address] Dr. Alicia Gilmangen Qn (U)0.2 {Wil'U}/dLNormal0.2 - 1.0The [facility]S Medical CenterComment on above:Performed By: #### TSH, LIPID, T4, FT3, CMP #### [facility] [address] [place] [address] Dr. Alicia Carroll B virus surface Ag [Presence] in Serum or Plasma by ImmunoassayOrdered By: Alicia León on 31-08-1875ZNN surface Ag IA QlNegative NegativeMiami Valley HospitalHelake cumberland regional hospitaltis C virus IgG Ab [Presence] in Serum or Plasma by ImmunoassayOrdered By: Alicia León on 30-50-3366PWQ IgG IA Ql Non-ReactiveNon ReactiveMiami Valley HospitalHelake cumberland regional hospitaltis C virus RNA [Units/volume] (viral load) in Serum or Plasma by SAVANNAH with probOrdered By: Alicia León on 75-31-5822YKJ RNA SAVANNAH+probe QnN/AFRegional Medical Center Hepatitis C virus RNA [log units/volume] (viral load) in Serum or Plasma by SAVANNAH withOrdered By: Alicia León on 84-63-4296TTE RNA SAVANNAH+probe [Log units/Vol]N/A [facility] HospitalLaboratory - CoagulationOrdered By: Hiral Interiano on 66-43-4826QV Coag (PPP) [Time]12.2 s9.0-12.9[facility] HospitalLymphocytes/100 WBC Manual cnt (Bld)Ordered By: Hiral Interiano on 83-36-4344Edzhvejbtmw/100 WBC (Bld)5 %18-42[facility] Microcytes LM Ql (Bld)Ordered By: Hiral Interiano on 84-70-4601Dckaqmcgje Ql (Bld) SlightMiami Valley HospitalMonocytes/100 WBC Manual cnt (Bld)Ordered By: Hiral Interiano on 32-41-1324Lwpjaboun/100 WBC (Bld)1 %2-11[facility] HospitalNo Panel InformationOrdered By: Alicia León on 08-11-2022 Hepatitis A IgM AntibodyNegativeNegativeMi[facility] Valley Hospital Hepatitis B Core IgM AntibodyNegativeNegativeMiami Valley Hospital Hepatitis C InterpretationSee comment.[facility] HospitalComment on above:Not infected with HCV unless early or acute infection issuspected (which may be delayed in an immunocompromisedindividual), or other evidence exists to indicate HCVinfection.Performed at: [facility] [place] [id number] Director: Lee Bob PhD, Phone: [phone] Hepatitis C RNA QuantitativeN/[facility] HospitalPOINT OF CARE GLUCOSEon 80-83-4328Mzzahaw [Mass/Vol]132 mg/dLCritically xnnt13-244HjwOhiohealth Dublin Methodist HospitalComment on above:Performed By: #### TSH, LIPID, T4, FT3, CMP #### [facility] [address] [address] [address] Alicia PatelGlucose [Mass/Vol]117 mg/dLCritically izlp29-431FteOhiohealth Dublin Methodist HospitalComment on above:Performed By: #### TSH, LIPID, T4, FT3, CMP #### [facility] [address] [address] [address] Alicia PatelGlucose [Mass/Vol]95 mg/kYApppgp31-982FdfOhiohealth Dublin Methodist Hospital Comment on above:Performed By: #### POCGLUC #### [facility] [address] [address] [address] Alicia HurdF CHEM 8 (BAS METB)on 34-15-3927Kxirj gap [Moles/Vol]29.5 mmol/LNormalThe St. [facility]'S Medical CenterComment on above:Performed By: #### TSH, LIPID, T4, FT3, CMP #### [facility] [address] [place] [address] Dr. Alicia PatelCalcium [Mass/Vol]7.7 mg/dLCritically low8.5-10.1The [facility] Medical CenterComment on above:Performed By: #### TSH, LIPID, T4, FT3, CMP #### [facility] [address] [place] [address] Dr. Alicia PatelChloride [Moles/Vol]102 mmol/FIwvivj94-816Qza [facility] Comment on above:Performed By: #### TSH, LIPID, T4, FT3, CMP #### [facility] [address] [place] [address] Dr. Alicia PatelCO2 [Moles/Vol]13.5 mmol/LCritically low21.0-32.0The [facility] Medical CenterComment on above:Performed By: #### TSH, LIPID, T4, FT3, CMP #### [facility] [address] [place] [address] Dr. Alicia PatelCreatinine [Mass/Vol]17.89 mg/dLCritically high0.70-1.30The [facility] Medical CenterComment on above:Performed By: #### TSH, LIPID, T4, FT3, CMP #### [facility] [address] [place] [address] Dr. Alicia DunnGFR-AF AMERICAN3 mL/min/1.02y6Jfajunfpeg low>=60The [facility] Medical CenterComment on above:Performed By: #### TSH, LIPID, T4, FT3, CMP #### [facility] [address] [place] [address] Dr. Alicia DunnGFR-NON AF AMERICAN3 mL/min/1.29z4Xfvbgkeaad low>=60The [facility] Medical CenterComment on above:Performed By: #### TSH, LIPID, T4, FT3, CMP #### [facility] [address] [address] [address] Alicia PatelGlucose [Mass/Vol]105 mg/xWXeqeka65-347TyxOhiohealth Dublin Methodist Hospital Comment on above:Performed By: #### TSH, LIPID, T4, FT3, CMP #### [facility] [address] [address] [address] Alicia PatelPotassium [Moles/Vol]7.0 mmol/LCritically high3.5-5.1The [facility] Medical CenterComment on above:Performed By: #### TSH, LIPID, T4, FT3, CMP #### [facility] [address] [address] [address] Alicia PatelSodium [Moles/Vol]138 mmol/ITyuftq509-116Roy [facility] Comment on above:Performed By: #### TSH, LIPID, T4, FT3, CMP #### [facility] [address] [address] [address] Alicia PatelUrea nitrogen [Mass/Vol]156.0 mg/dLCritically high7.0-18.0The [facility] CenterComment on above:Performed By: #### TSH, LIPID, T4, FT3, CMP #### [facility] [address] [address] [address] Alicia Nguyễn nitrogen/Creatinine [Mass ratio]8.7 mg/mgNormalThe St. [facility]'S Medical CenterComment on above:Performed By: #### TSH, LIPID, T4, FT3, CMP #### [facility] [address] [place] [address] Dr. Alicia PatelPlatelet adequacy [Presence] in Blood by Light microscopyOrdered By: Hiral Interiano on 80-27-8566Yaeumzqxt LM Ql (Bld)[facility] CampusPlatelet morphology finding [Identifier] in BloodOrdered By: Hiral Interiano on 54-45-3374Zwyrahvp morphology finding Nom (Bld)UC Medical CenterPlatelet poor plasma international normalized ratio (INR) by coagulation assay (relatOrdered By: Hiral Interiano on 08-11-2022 INR Coag (PPP) [Relative time]1.0 {INR}[facility] HospitalComment on above:INR Therapeutic Range A) Pre- [...] by Light microscopyOrdered By: Hiral Interiano on 60-62-2638Bmqhdhuwrndkxa LM Ql (Bld)SlightMiami Valley HospitalRBC morphologyOrdered By: Hiral Interiano on 41-64-0488GDK morphology finding Nom (Bld)N/AFRiverside Methodist Hospitalegmented neutrophils/100 WBC Manual cnt (Bld)Ordered By: Hiral Interiano on 08-11-2022 Segmented neutrophils/100 WBC (Bld)94 %50-70[facility] Troponin I.cardiac [Mass/volume] in Serum or Plasma by High sensitivity method Ordered By: Hiral Interiano on 73-72-0981Dztoyjyd I.cardiac High sensitivity method [Mass/Vol]42 pg/mL0-20[facility] HospitalURINE MICROSCOPIC ONLYon 54-19-5254YLPIUAYYGYYYWNhsgpotbGTGI SEENOhiohealth Dublin Methodist HospitalComment on above:Performed By: #### TSH, LIPID, T4, FT3, CMP #### [facility] [address] [address] [address] Alicia Perea identified Cx Nom (U)NOT INDICATEDNoProMedica Defiance Regional HospitalComment on above:Performed By: #### TSH, LIPID, T4, FT3, CMP #### [facility] [address] [address] [address] Alicia Pruett SEENNormalNONE SEENOhiohealth Dublin Methodist HospitalComment on above:Performed By: #### TSH, LIPID, T4, FT3, CMP #### [facility] [address] [address] [address] Alicia PatelCrystals LM Nom (Urine sed)NONE SEENNormalNONE SEENVan Wert County Hospital on above:Performed By: #### TSH, LIPID, T4, FT3, CMP #### [facility] [address] [address] [address] Vargas ChangEpithelial cells LM Ql (Urine sed)RARENormalNONE SEEN /RAREThe St. [facility] Medical CenterComtrinity health [facility] on above:Performed By: #### TSH, LIPID, T4, FT3, CMP #### [facility] [address] [address] [address] Alicia PatelMUCOUSNONE SEENNormalNONE SEENVan Wert County Hospital on above:Performed By: #### TSH, LIPID, T4, FT3, CMP #### [facility] [address] [place] [address] Dr. Alicia PatelZhfvdEQV7-7Paamtmtc3-6Ujb [facility] on above:Performed By: #### TSH, LIPID, T4, FT3, CMP #### [facility] [address] [place] [address] Dr. Alicia PatelWBC2-5AbnormalNONE SEENVan Wert County Hospital on above: Performed By: #### TSH, LIPID, T4, FT3, CMP #### [facility] [address] [place] [address] Dr. Alicia PatelXR CHEST 1 Von 43-63-0091NB CHEST 1 VEXAM: XR CHEST 1 V [...] Electronically authenticated by: YOGESH BYERS Date: 2022-08-11 04:27NoProMedica Defiance Regional HospitalCovid-19 PCR (CVDTBH)on 74-72-1130VGUY-CoV-2 (COVID-19) RNA SAVANNAH+probe Ql (Unsp spec)Not detectedNormalNOT DETECTEDThe [facility] Comment on above:Result Comment: This test is not yet approved or cleared by the [place] FDA. When there are no FDA-approved or cleared tests available, and other criteria are met, FDA can make tests available under an emergency access mechanism called an Emergency Use Authorization (EUA). The EUA for this test is supported by the [place] of Health and Human Service's (HHS's) declaration [...] T4, FT3, CMP #### [facility] [address] [place] [address] Dr. Alicia RyderNZA A AND B AGon 71-63-3107IVWSCRDYOXWRQCleveland Clinic Medina HospitalComment on above:Result Comment: Negative for Flu A protein angiten. Infection due to Flu A cannot be ruled out. FluA angiten in the sample may be below the detection limit of the test.Performed By: #### TSH, LIPID, T4, FT3, CMP #### [facility] [address] [place] [address] Dr. Alicia PatelINFLUBNEGKnox Community Hospital on above: Result Comment: Negative for Flu B protein antigen. Infection due to Flu B cannot be ruled out. FluB antigen in the sample may be below the detection limit of the test.Performed By: #### TSH, LIPID, T4, FT3, CMP #### [facility] [address] [place] [address] Dr. Alicai Khanna AGNegativeNormalNEGATIVE SEE COMMENTThe [facility] on above:Performed By: #### TSH, LIPID, T4, FT3, CMP #### [facility] [address] [place] [address] Dr. Alicia Gutierrez AGNegativeNormalNEGATIVE SEE COMMENTThe [facility] on above:Performed By: #### TSH, LIPID, T4, FT3, CMP #### [facility] [address] [place] [address] Dr. Alicia Jo INTACTon 91-31-2850QGX, Kzdluu89 pg/qMUkcuca50-79Hag [facility] Hospitalment on above:Performed By: #### TSH, LIPID, T4, FT3, CMP #### [facility] [address] [place] [address] Dr. Alicia PatelALBUMINvic 47-83-8920Rikbvzp [Mass/Vol]3.9 g/dLNormal3.4-5.0The [facility] Hospitalment on above:Performed By: #### TSH, LIPID, T4, FT3, CMP #### [facility] [address] [place] [address] Dr. Alicia PatelHEMOGRAM AND PLATELon 14-92-7240Lmqhjwfqzg (Bld) [Volume fraction]42.1 %Xutpwr88.0-54.0The [facility] Hospitalment on above:Performed By: #### TSH, LIPID, T4, FT3, CMP #### [facility] [address] [place] [address] Dr. Alicia PatelHemoglobin (Bld) [Mass/Vol]14.7 g/sTUumjah31.0-18.0The [facility] Hospitalment on above:Performed By: #### TSH, LIPID, T4, FT3, CMP #### [facility] [address] [place] [address] Dr. Alicia Madrigal (RBC) [Entitic mass]33.2 avWpygxr90.9-34.0The [facility] Medical CenterComment on above:Performed By: #### TSH, LIPID, T4, FT3, CMP #### [facility] [address] [place] [address] Dr. Alicia Nixon (RBC) [Mass/Vol]34.9 g/tJJzilbd56.9-35.2The [facility] Medical CenterComment on above:Performed By: #### TSH, LIPID, T4, FT3, CMP #### [facility] [address] [place] [address] Dr. Alicia PatelCORDELL MEMOR[facility] (RBC) [Entitic vol]95.0 fLCritically high80.0-94.0The [facility] Medical CenterComment on above:Performed By: #### TSH, LIPID, T4, FT3, CMP #### [facility] [address] [place] [address] Dr. Alicia PatelPLT190 103/zaGrlsst112-282Okc St[facility] Medical CenterComment on above: Performed By: #### TSH, LIPID, T4, FT3, CMP #### [facility] [address] [place] [address] Dr. Alicia PatelRBC4.43 106/ulCritically low4.70-6.10The [facility] Medical CenterComtrinity health [facility] on above:Performed By: #### TSH, LIPID, T4, FT3, CMP #### [facility] [address] [place] [address] Dr. Alicia PatelWBC7.0 103/ulNormal4.0-11.0The [facility] Medical CenterComment on above: Performed By: #### TSH, LIPID, T4, FT3, CMP #### [facility] [address] [place] [address] Dr. Alicia PatelMAGNESIUMon 40-87-1662Egemqpuef [Mass/Vol]1.7 mg/dLCritically low 1.8-2.4The St[facility] Medical CenterComment on above:Performed By: #### TSH, LIPID, T4, FT3, CMP #### [facility] [address] [place] [address] Dr. Alicia PatelPHOSPHORUSon 55-29-4510Tfmmuyocx [Mass/Vol]3.7 mg/dLNormal2.6-4.[address] [facility] CenterComment on above:Performed By: #### TSH, LIPID, T4, FT3, CMP #### [facility] [address] [address] [address] Alicia PatelPROF CHEM 8 (BAS METB)on 12-13-6353Xclsy gap [Moles/Vol]11.2 mmol/LNormalThe St. [facility]S Medical CenterComment on above:Performed By: #### URTPCR #### [facility] [address] [place] [address] Dr. Alicia PatelCalcium [Mass/Vol]9.1 mg/dLNormal8.5-10.1The [facility] Comment on above:Performed By: #### URTPCR #### [facility] [address] [place] [address] Dr. Alicia PatelChloride [Moles/Vol]104 mmol/KUnauar34-923Quw [facility] Comment on above:Performed By: #### URTPCR #### [facility] [address] [place] [address] Dr. Alicia PatelCO2 [Moles/Vol]29.2 mmol/FMrlldp57.0-32.0The [facility] Comment on above:Performed By: #### URTPCR #### [facility] [address] [place] [address] Dr. Alicia PatelCreatinine [Mass/Vol]1.40 mg/dLCritically high0.70-1.30The [facility] CenterComment on above:Performed By: #### URTPCR #### [facility] [address] [place] [address] Dr. Alicia DunnGFR-AF HRSVMGIT29 mL/min/1.20i9Fzmplldfta low>=60The St[facility] Medical CenterComment on above:Performed By: #### URTPCR #### [facility] [address] [place] [address] Dr. Alicia DunnGFR-NON AF ESBZXWHO66 mL/min/1.24r7Uedytehidq low>=60The [facility] CenterComment on above:Performed By: #### URTPCR #### [facility] [address] [place] [address] Dr. Alicia PatelGlucose [Mass/Vol]148 mg/dLCritically uqus68-754Jcz [facility] CenterComment on above:Performed By: #### URTPCR #### [facility] [address] [place] [address] Dr. Alicia PatelPotassium [Moles/Vol]4.4 mmol/LNormal3.5-5.1[facility] Comment on above:Performed By: #### URTPCR #### [facility] [address] [place] [address] Dr. Alicia PatelSodium [Moles/Vol]140 mmol/NKrsuur699-783Lca [facility] Comment on above:Performed By: #### URTPCR #### [facility] [address] [place] [address] Dr. Alicia PatelUrea nitrogen [Mass/Vol]16.0 mg/dLNormal7.0-18.0The [facility] Medical CenterComment on above:Performed By: #### URTPCR #### [facility] [address] [place] [address] Dr. Alicia Nguyễn nitrogen/Creatinine [Mass ratio]11.4 mg/mgNormalThe St. [facility]'S Medical CenterComment on above:Performed By: #### URTPCR #### [facility] [address] [place] [address] Dr. Alicia Mathew RANDOM W/MICROSCOPICon 10-24-5841QXQZLRKVALKE SEENNormalNONE SEENOhiohealth Dublin Methodist HospitalComment on above:Performed By: #### TSH, LIPID, T4, FT3, CMP #### [facility] [address] [place] [address] Dr. Alicia PatelBilirubin Ql (U)NegativeNormalNEGATIVEThe [facility] Comment on above:Performed By: #### TSH, LIPID, T4, FT3, CMP #### [facility] [address] [address] [address] Alicia Pruett SEENNormalNONE SEENVan Wert [facility] Hospital on above:Performed By: #### TSH, LIPID, T4, FT3, CMP #### [facility] [address] [address] [address] Alicia Brizuelaarity (U)CLEARNormalCLEAROhiohealth Dublin Methodist HospitalComment on above: Performed By: #### TSH, LIPID, T4, FT3, CMP #### [facility] [address] [address] [address] Alicia Perera (U)LT. YELLOWNormalYELLOWOhiohealth Dublin Methodist HospitalComtrinity health grand rap[facility] hospital on above:Performed By: #### TSH, LIPID, T4, FT3, CMP #### [facility] [address] [address] [address] Alicia PatelCrystals LM Nom (Urine sed)NONE SEENNormalNONE SEENOhiohealth Dublin Methodist HospitalComment on above:Performed By: #### TSH, LIPID, T4, FT3, CMP #### [facility] [address] [address] [address] Vargas ChangEpithelial cells LM Ql (Urine sed)FEWAbnormalNONE SEEN /RAREVan [facility] on above:Performed By: #### TSH, LIPID, T4, FT3, CMP #### [facility] [address] [address] [address] Alicia PatelGlucose Ql (U)NegativeNormalNEGATIVEUC Medical Centerment on above:Performed By: #### TSH, LIPID, T4, FT3, CMP #### [facility] [address] [address] [address] Alicia PatelHemoglobin Ql (U)NegativeNormalNEGATIVECrystal Clinic Orthopedic Center on above:Performed By: #### TSH, LIPID, T4, FT3, CMP #### [facility] [address] [address] [address] Alicia PatelKetones Ql (U)NegativeNormalNEGATIVEOhiohealth Dublin Methodist HospitalComment on above:Performed By: #### TSH, LIPID, T4, FT3, CMP #### [facility] [address] [address] [address] Alicia PatelLEUKOCYTESNegativeNormalNEGATIVEThe [facility] Riverside Methodist Hospitalment on above:Performed By: #### TSH, LIPID, T4, FT3, CMP #### [facility] [address] [address] [address] Alicia RuggieroCOUSNONEssence SEENNormalNONE SEENThe St. [facility]S Medical CenterComment on above:Performed By: #### TSH, LIPID, T4, FT3, CMP #### [facility] [address] [address] [address] Alicia Porter Ql (U)NegativeNormalNEGATIVEThe St. [facility]S Medical CenterComment on above:Performed By: #### TSH, LIPID, T4, FT3, CMP #### [facility] [address] [place] [address] Dr. Alicia PatelpH (U)5.5 [pH]Normal5-9The [facility] Rivers[facility] Methodist Hospitalment on above: Performed By: #### TSH, LIPID, T4, FT3, CMP #### [facility] [address] [address] [address] Alicia PatelRBCNDANIELA SEENAbnormal0-2The [facility] on above: Performed By: #### TSH, LIPID, T4, FT3, CMP #### [facility] [address] [address] [address] Alicia PatelSPEC GRAVITY1.718Lmvwek6.005-<=1.025The [facility] on above:Performed By: #### TSH, LIPID, T4, FT3, CMP #### [facility] [address] [address] [address] Alicia Mathew PROTEINNegativeNormalNEGATIVE/ TRACEThe [facility] Comment on above:Performed By: #### TSH, LIPID, T4, FT3, CMP #### [facility] [address] [address] [address] Alicia Baxter Qn (U)0.2 {Wil'U}/dLNormal0.2 - 1.0The [facility] CenterComment on above:Performed By: #### TSH, LIPID, T4, FT3, CMP #### [facility] [address] [address] [address] Alicia Sánchez SEENNormalNONE SEENThe St. [facility]S Medical CenterComment on above: Performed By: #### TSH, LIPID, T4, FT3, CMP #### [facility] [address] [address] [address] Alicia PatelURIC ACID SERUMon 20-43-5745Blwwv [Mass/Vol]5.6 mg/dLNormal 3.5-7.2The [facility] CenterComment on above:Performed By: #### TSH, LIPID, T4, FT3, CMP #### [facility] [address] [place] [address] Dr. Alicia Friend T PROTEIN CREAT RATIOon 65-75-4871Roipagu (U) [Mass/Vol] 26.0 mg/dLCritically high<=12.0The St[facility] CenterComment on above:Performed By: #### TSH, LIPID, T4, FT3, CMP #### [facility] [address] [place] [address] Dr. Alicia Nj PROT CREAT RAT0.34NormalThe St. [facility]S Medical CenterComment on above: Performed By: #### TSH, LIPID, T4, FT3, CMP #### [facility] [address] [place] [address] Dr. Alicia Friend CREAT77.39 mg/lXPtyilw28.00-300.00The [facility] Comment on above:Performed By: #### TSH, LIPID, T4, FT3, CMP #### [facility] [address] [place] [address] Dr. Alicia Patel Vital Signs Date TimeVital SignValuePerforming AvnqihknsPtxynpdh91-05-9289 14:15-0400Body crmaih898.8 cmMi[facility]06-[facility]-20[facility] 14:150400Body mass index (BMI) [Ratio]40.3 kg/s5XpswbgutpMiami Valley Hospital06-09-2025 14:15-0400Body rgmotq357.45 kgMiami Valley Hospital06-09-2025 14:15-0400Diastolic blood iowcimrc77 mm[Hg][facility] 12-03-2024 14:15-0400Heart rate81 /[facility] 12-03-2024 14:15-0400Respiratory rate18 /[facility] 12-03-2024 14:15-9044OkM0% (BldA) [Mass fraction]95 %[facility]06-09-2025 14:15-0400Systolic blood mm[Hg][facility]12-17-2024 11:27-0500Blood Pressure LocationNi [employer] [facility] [place] 840562-17-2024 11:27-0500Diastolic blood mm[Hg]Ni [employer] [facility] [place] 840562-17-2024 11:27-0500Heart rate62 /minNi [employer] [facility] [place] 840562-17-2024 11:27-0500Systolic blood gmfezqqz688 mm[Hg]Ni [employer] [facility]06-25-2024 11:49-0400Body .26 cmMD Jose Alfaro Work Phone: [facility]06-25-2024 11:49-0400 Body mass index (BMI) [Ratio]39.4 kg/m2MD Jose Alfaro Work Phone: [facility]06-25-2024 11:49-0400 Body vawhttmuebg71.5 [degF]MD Jose Alfaro Work Phone: [facility]06-25-2024 11:49-0400 Body lhcqfi751.33 kgMD Jose Dustinnissa Work Phone: 1(973)559-[address] [place], [place] 4473006-25-2024 11:49-0400 Diastolic blood bybkzjxj48 mm[Hg]MD Jose Alfaro Work Phone: 1(590)846-[address] [place], [place] 4473006-25-2024 11:49-0400 Heart rate83 /minMD Jose Dustinnissa Work Phone: 1(325)667-[address] [place], [place] 4473006-25-2024 11:49-0400 Respiratory rate20 /minMD Jose Alfaro Work Phone: [phone])[address]06-25-2024 11:49-0400 SaO2% (BldA) [Mass fraction]94 %MD Jose Alfaro Work Phone: 1(168)[address]06-25-2024 11:49-0400 Systolic blood athtftin340 mm[Hg]MD Jose Alfaro Work Phone: 1(017)309-[address] [place], [place] 4473012-19-2023 11:00-0500 Body bytwvr475.26 cmAbdul Brit Other [employer] Other 784618-90-9050 11:00-0500Body mass index (BMI) [Ratio] 38.51 kg/e3Llwak Brit Other [employer] Other 12-19-2023 11:00-0500Body sczqavmtbbw25.2 [degF]Alicia Brit Other [employer] Other 12-19-2023 11:00-0500Body iwaolu890.3 kgAbdul Brit Other [employer] Other 12-19-2023 11:00-0500Diastolic blood tdqhofbg57 mm[Hg] Alicia Brit Other [employer] Other 12-19-2023 11:00-0500Respiratory rate18 /minAbdul Brit Other [employer] Other 12-19-2023 11:00-9935SpH4% (BldA) [Mass fraction]95 % Alicia Brit Other [employer] Other 12-19-2023 11:00-0500Systolic blood obxyrled525 mm[Hg] Alicia Brit Other [employer] Other 06-05-2023 10:20-0400Body .26 cmAbdul Brit [facility] 06-05-2023 10:20-0400Body mass index (BMI) [Ratio] 36.77 kg/p3Gwdbr Brit Other [employer] Other 06-05-2023 10:20-0400Body qszspyzgjko38.3 [degF]Alicia Brit Other [employer] Other 06-05-2023 10:20-0400Body feivki184.95 kgAbdul Brit Other [employer] Other 06-05-2023 10:20-0400Diastolic blood hktefmfr41 mm[Hg] Alicia Brit Other [employer] Other 06-05-2023 10:20-0400Respiratory rate18 /minAbdul Brit Other [employer] Other 06-05-2023 10:20-1273HnY8% (BldA) [Mass fraction]96 % Alicia Brit Other [facility] [employer] Other 632453-08-1351 10:20-0400Systolic blood yfjtbtoz042 mm[Hg] Alicia Brit Other [facility] [employer] Other 567920-49-8606 17:25-0400Heart rate66 /minNi [employer] [facility]04-13-2023 17:25-4113FiZ2% (BldA) [Mass fraction]92 %Ni OLIVARES [facility]04-13-2023 17:25-0400 Respiratory rate16 /minNi [employer] [facility]04-13-2023 17:24-0400Body tnnokpomath31.7 [degF]Ni [employer] [facility]04-13-2023 17:24-0400 Diastolic blood mm[Hg]Ni [employer] [facility]04-13-2023 17:24-0400Mean blood cqfjbehk421 mm[Hg]Ni [employer] [facility]04-13-2023 17:24-0400 Systolic blood tzdiwzls313 mm[Hg]Ni [employer] [facility]04-13-2023 16:18-0400Heart rate61 /minNi [employer] [facility]04-13-2023 16:18-1093FvE1% (BldA) [Mass fraction]95 %Ni [employer] [facility]04-13-2023 16:17-0400 Diastolic blood dohxxcdk08 mm[Hg]Ni [employer] [facility]04-13-2023 16:17-0400Mean blood mm[Hg]Ni [employer] [facility]04-13-2023 16:17-0400 Systolic blood fgqmapit839 mm[Hg]Ni [employer] [facility]04-13-2023 16:17-0400 Respiratory rate16 /minNi [employer] [facility]04-13-2023 16:11-0400 Diastolic blood qzybocal20 mm[Hg]Ni [employer] [facility]04-13-2023 16:11-0400Heart rate58 /minNi [employer] [facility]04-13-2023 16:11-0400Mean blood apqieanb91 mm[Hg]Ni [facility] [facility]04-13-2023 16:11-0400 Respiratory rate17 /minNi [employer] [facility]04-13-2023 16:11-9838ClR7% (BldA) [Mass fraction]97 %Ni [facility] [facility]04-13-2023 16:11-0400 Systolic blood mm[Hg]Ni [employer] [facility]04-13-2023 16:00-0400Mean blood chxvvric25 mm[Hg]Ni [employer] [facility]04-13-2023 16:00-0400 Respiratory rate13 /minNi [employer] [facility]04-13-2023 15:55-0400Mean blood dbmdijoz45 mm[Hg]Ni OLIVARES [address] [place], [place] 7992704-13-2023 15:55-0400 Respiratory rate17 /minNi [employer] [facility]04-13-2023 15:46-0400Body .06 [degF]Ni OLIVARES [facility]04-13-2023 15:40-0400 Respiratory rate15 /minNi [employer] [facility]04-13-2023 10:14-0400Mean blood mm[Hg]Ni [employer] [facility]04-13-2023 10:14-0400Blood Pressure LocationNi [employer] [facility]04-13-2023 10:13-0400Heart rate64 /minNi [employer] [facility]04-13-2023 10:12-0400Body qpnvinoasfe90.06 [degF]Ni [facility]AR[employer] [facility]04-13-2023 10:12-0400Blood Pressure LocationNi [employer] [facility]03-22-2023 14:40-0400Body yobkaz930.26 cmAbdul Brit Other [facility] [employer] Other 124941-98-5152 14:40-0400Body mass index (BMI) [Ratio] 37.48 kg/o7Ogpze Brit Other [employer] Other 274141-86-8976 14:40-0400Body sgvqau861.12 kgAbdul Brit Other [employer] Other 03-22-2023 14:40-0400Diastolic blood kauvgnpw80 mm[Hg] Alicia Brit Other nort [employer] Other 03-22-2023 14:40-0400Respiratory rate18 /minAbdul Brit Other [facility] [employer] Other 03-22-2023 14:40-5600BhT2% (BldA) [Mass fraction]97 % Alicia Brit Other [facility] [employer] Other 03-22-2023 14:40-0400Systolic blood hriiczec696 mm[Hg] Alicia Brit Other [employer] Other 03-13-2023 10:01-0400Blood Pressure LocationNi [employer] [facility]03-13-2023 10:01-0400Diastolic blood fyzjmtww40 mm[Hg]Ni [employer] [facility]03-13-2023 10:01-0400Heart rate68 /minNi [employer] [facility]03-13-2023 10:01-0400Systolic blood koexqxuz999 mm[Hg]Ni [employer] [facility]02-19-2023 12:16-0500Body nehangkcnek34.8 [degF]MD Jose Alfaro Work Phone: [facility]02-19-2023 12:16-0500 Diastolic blood xrrajhpa20 mm[Hg]MD Jose Alfaro Work Phone: [facility]02-19-2023 12:16-0500 Heart rate68 /minMD Jose Alfaro Work Phone: 1(113)396-[address] [place], [place] 4473002-19-2023 12:16-0500 Respiratory rate18 /minMD Jose Alfaro Work Phone: 7(626)767-[address] [place], [place] 4473002-19-2023 12:16-0500 SaO2% (BldA) [Mass fraction]95 % Jose Channissa Work Phone: 1(293)[address]02-19-2023 12:16-0500 Systolic blood hjzgawlv412 mm[Hg] Jose Dustinnissa Work Phone: 1(886)[address] [place], [place] 4626802-19-2023 05:08-0500 Body neqoqs803.2 kgMD Jose Alfaro Work Phone: 1(940)[address] [place], [place] 4626802-17-2023 13:10-0500 Inhaled oxygen flow rate8 L/minMD Jose Alfaro Work Phone: 1(247)[address] [place], [place] 4626802-17-2023 11:54-0500 Body .8 cmMD Jose Alfaro Work Phone: 1(982)[address] [place], [place] 4626802-17-2023 11:54-0500 Body mass index (BMI) [Ratio]37.3 kg/m2MD Jose Alfaro Work Phone: [phone])[address] [place], [place] 4626812-06-2022 11:40-0500 Body .26 cmAbdul Brit Other [facility] [employer] Other 12-06-2022 11:40-0500Body mass index (BMI) [Ratio] 37.77 kg/e5Hlktr Brit Other [facility] [employer] Other 12-06-2022 11:40-0500Body nmxukvjlrdn46.5 [degF]Alicia Brit Other [employer] Other 12-06-2022 11:40-0500Body mxoujf780.03 kgAbdul Brit Other [employer] Other 12-06-2022 11:40-0500Diastolic blood uphfptvk71 mm[Hg] Alicia Brit Other [employer] Other 12-06-2022 11:40-0500Respiratory rate18 /minAbdul Brit Other [employer] Other 12-06-2022 11:40-4963DtT4% (BldA) [Mass fraction]93 % Alicia Brit Other [employer] Other 12-06-2022 11:40-0500Systolic blood wsogasze074 mm[Hg] Alicia Brit Other [employer] Other 05-31-2022 11:20-0400Body lecheq130.26 cmAbdul Brit Other [employer] Other 05-31-2022 11:20-0400Body mass index (BMI) [Ratio] 36.26 kg/w5Vwfag Brit Other [employer] Other 05-31-2022 11:20-0400Body sqisindeotv60.4 [degF]Alicia Brit Other [employer] Other 05-31-2022 11:20-0400Body qisuhh088.4 kgAbdul Brit Other [employer] Other 05-31-2022 11:20-0400Diastolic blood tqcvovol58 mm[Hg] Alicia Brit Other [employer] Other 05-31-2022 11:20-0400Respiratory rate18 /minAbdul Brit Other [facility] [employer] Other 05-31-2022 11:20-0068JoG1% (BldA) [Mass fraction]95 % Alicia Birt Other [facility] [employer] Other 05-31-2022 11:20-0400Systolic blood mm[Hg] Alicia Brit Other [facility] [employer] Other 05-02-2022 09:17-0400Blood Pressure LocationPaCradle Technologies [facility] 05-02-2022 09:17-0400Diastolic blood mm[Hg] [employer] [facility] 05-02-2022 09:17-0400Heart rate64 /minPatrick Shobutt [employer] [facility] 05-02-2022 09:17-0400Respiratory rate16 /minPatricAOMi [facility] 05-02-2022 09:17-0400Systolic blood gympppis229 mm[Hg] [employer] [facility] 11-30-2021 11:00-0500Body jyvskf795.26 cmAbdul Brit Other [facility] [employer] Other 11-30-2021 11:00-0500Body mass index (BMI) [Ratio]34.4 kg/r5Dwtga Brit Other [employer] Other 11-30-2021 11:00-0500Body zogbkcltkaj63.9 [degF]Alicia Brit Other [employer] Other 11-30-2021 11:00-0500Body hcfnha639.69 kgAbdul Brit Other [employer] Other 11-30-2021 11:00-0500Diastolic blood pcxxtkzo68 mm[Hg] Alicia Brit Other [employer] Other 11-30-2021 11:00-0500Respiratory rate18 /minAbdul Brit Other [employer] Other 11-30-2021 11:00-2444LcD9% (BldA) [Mass fraction]94 % Alicia Brit Other [employer] Other 11-30-2021 11:00-0500Systolic blood jrvisgel978 mm[Hg] Alicia Brit Other [employer] Other Encounters Encounter DateEncounter TypeCare ProviderFacilityStart: 65-33-2796spzhzclsrg Gregory P COOKFacility:JACOB SanduskyStart: 01-28-2025 End: 96-80-5538ynbprtoztuYCTVZV [facility] Start: 45-49-7991ezsifudbzxWGRRPP [facility] Start: 12-27-2024 End: 37-32-0042jdypikgsurSVHIKV [facility] Start: 12-24-2024 End: 66-52-7724fytdhuvkotQPOQYT [facility] Start: 12-10-2024 End: 78-42-1863ynmgbfthxwAkluksl P COOKFacility:FTMCStart: 12-10-2024 End: 37-02-1219Gdf Drop offGregory P CARLOS [facility] Start: 12-10-2024 End: 32-48-4906uiozfbcgglObtdtff P COOKFacility:EU [place]kyStart: 12-10-2024 End: 61-69-9638Ilntuok encounter procedureGregory P CARLOS [facility] Start: 12-03-2024 End: 91-99-1074gkuzwglzsqBjnbwqjhtThe [facility] Work Phone: Start: 12-03-2024 End: 06-45-9384Zxymjts encounter procedureFirsthealth [facility] Work Phone: Start: 02-36-3101Fkh-patient / Non-visitFirsthealth [facility] Work Phone: Start: 06-12-2024 End: 37-41-3413hvjgecfinoSktupwb P COOKFacility:EU [place]kyStart: 06-12-2024 End: 77-57-6210Lxctewn encounter procedureGregory P CARLOS [facility] Start: 05-21-2024 End: 68-20-1985gpwzrwzsymKNFIXQ [facility] Start: 12-20-2023 End: 07-90-5904edcsqaysxoLW Jose Alfaro Work Phone: [facility] Work Phone: Start: 12-20-2023 End: 68-79-7405Xnedkaq encounter procedureMD Jose Alfaro Work Phone: [facility] Work Phone: Start: 23-23-7862Qdr-patient / Non-visitMD Jose Alfaro Work Phone: [facility] Work Phone: Start: 10-26-2023 End: 78-87-9379xtntjqrefjCTYF DUCKETTNot AvailableStart: 10-18-2023 End: 99-22-1619afriqyofvaHB Jose Alfaro Work Phone: [facility] Work Phone: Start: 10-18-2023 End: 41-46-8299Crmkyedn ReferredMD Jose Alfaro Work Phone: [facility] [place] HospStart: 09-27-2023 End: 79-31-8586Zfbhybwxh Result EncounterKyle Jenny DO Other Phone: noms External Department UnsolicitedStart: 09-27-2023 End: 92-55-9885Tbwwibazh Result EncounterKyle Jenny DO Other Phone: [facility] External Department UnsolicitedStart: 09-12-2023 Patient encounter statusKyle Jenny DO Other Phone: noms HealthcareStart: 09-12-2023 End: 23-28-1048llwesggvpeUAGJ DUCKETTNot AvailableStart: 07-29-2023 End: 99-19-1428Tkvdkqmfg Result EncounterTesha PEDRAZA Work Phone: [facility] External Department UnsolicitedStart: 07-29-2023 End: 37-16-0347Gooctxqla Result EncounterTesha PEDRAZA Work Phone: [facility] External Department UnsolicitedStart: 07-02-2023 End: 57-56-3982Egkmpmt encounter procedureMD Jose Hoy Work Phone: [facility] [place] Work Phone: Start: 07-02-2023 End: 64-70-6206bwhihoouktTQ Jose M Hoy Work Phone: [facility] Work Phone: Start: 06-28-2023 End: 80-71-5050Jcbszjk encounter procedureMD Jose Hoy Work Phone: [facility] [place] Work Phone: Start: 06-28-2023 End: 28-42-2182weuhzjubuzFQ Jose M Hoy Work Phone: [facility] Work Phone: Start: 06-16-2023 End: 31-05-6215Zftcaoz encounter procedureMD Jose Hoy Work Phone: [facility]-Ultrasound [facility] [place] Work Phone: Start: 06-16-2023 End: 72-32-1409vzdsfwukwtWZ Jose M Hoy Work Phone: [facility] Work Phone: Start: 06-14-2023 End: 12-83-5032btzozaekrvPlflv Brit Other [employer] Other Start: 95-41-1202Ssqpyu outpatient visit 25 minutes Alicia QadirFPG NephrologyStart: 06-14-2023 End: 08-70-7916Rldylyn encounter procedureNi OLIVARES [facility] Start: 12-20-2022 End: 69-39-7688Kwgkyli encounter procedureNi OLIVARES [facility] Start: 11-29-2022 End: 74-67-1919yvhekkwhhgKublz Brit Other [employer] Other Start: 03-21-4953Gamhvj outpatient visit 25 minutes Alicia QadirFPG NephrologyStart: 11-10-2022 End: 59-36-5806fwarowhunqWL JOSE HOY .Facility:O7Vwfzc: 11-08-2022 End: 55-32-2952skmcpuyemaEG JOSE HOY .Facility:M1Udfjz: 11-06-2022 End: 31-02-2182wqwsytaadhVL JOSE HOY .Facility:V1Gzlfv: 10-29-2022 End: 03-22-6140Qbopyvw encounter procedurePayanira BRAUN [facility] start: 10-26-2022 End: 16-10-4036zcjxnuwhwqUGROFGV BOESFacility:D7Tjkgo: 10-22-2022 End: 51-96-5554virxmqsgnjPO MILTON BRAUN .Facility:E6Wvstj: 10-15-2022 End: 57-85-9053yqamvxrgqvZM JOSE ALFARO .Facility:D4Qgicw: 10-14-2022 End: 87-58-7663ljolanspolFPLCCKJ BOESFacility:N5Ifoph: 10-07-2022 End: 89-05-9955Msrnujich to same day surgery Kusum OLIVARES [facility] Start: 09-15-2022 End: 63-66-0201woctetfdfyNtdwi Brit Other [facility] [employer] Other Start: 68-92-6832Hdevjc outpatient visit 25 minutes Alicia QadirFPG NephrologyStart: 37-00-1046idviokfvgzEpmgsqyy:43201Ossxu: 09-13-2022 End: 32-45-8228hdvveoexznLLGKI QADIRFacility:O3Bnqbt: 09-06-2022 End: 92-02-0996Yyzwzkx encounter procedureRidgechandu OLIVARES [facility] Start: 09-01-2022 End: 75-04-5412imehutgftwWV NI Garcia CARLOSFacility:P4Ehqgm: 08-24-2022 End: 63-87-4152fuszzulxveWZ JOSE HOY .Facility:C2Afoqy: 08-22-2022 End: 46-06-8038wmufydllauXY JOSE HOY .Facility:Z6Ocigl: 08-21-2022 End: 90-61-0283cozeoshtqjSZ JOSE HOY .Facility:B0Rxdnh: 08-18-2022 End: 87-87-7870mppojhvawyQXZYS QADIRFacility:F6Iezux: 68-40-0952mndxhpquag Facility:[facility]: 49-71-9048Abgcciq encounter statusMD Jose Alfaro Work Phone: [facility] HospitalComment on above: Problem List clean-up per request of Phys. EHR CmteStart: 08-11-2022 End: 34-87-0271Vwbmykpsr for preprocedural cardiovascular examinationMD Jose Alfaro Work Phone: [facility]: 08-11-2022 End: 76-05-8719Fxwblfvolk and management of inpatientMD Jose Hoy Work Phone: [facility] [employer] Work Phone: Start: 08-11-2022 End: 38-58-6857hzcjrhbkcoVXLBT PARKERFacility:T7Lnbcp: 08-02-2022 End: 57-82-3755acuxqkgwzyUQ JOSE HOY .Facility:J3Cxgqa: 07-08-2022 End: 03-89-3074krdxyuaraoVN JOSE HOY .Facility:O9Hxnaf: 06-01-2022 End: 86-75-2655nzisfifrbaFozqy Brit Other [employer] Other Start: 01-10-8668Infrcy outpatient visit 25 minutes Alicia QadirFPG NephrologyStart: 05-24-2022 End: 18-67-0370wrrdndvgrjAPNUU QADIRFacility:L3Kqosp: 02-03-2022 End: 50-41-8541erirtywjzqTD JOSE ALFARO .Facility:P4Rescs: 11-24-2021 End: 79-94-4436dqgluedxupVvaqq R[employer] Other [employer] Other Start: 04-22-6937Csvjnu outpatient visit 25 minutes Alicia QadirFPG NephrologyStart: 10-26-2021 End: 01-93-5721Kclcbci encounter procedurePatricpedro luis BRAUN [facility] start: 05-26-2021 End: 72-23-7028hylrhcwxahXezqf Brit Other no[employer] Other Start: 55-43-7103Khkyvn outpatient visit 25 minutes Alicia QadirFPG Nephrology Procedures DateProcedureProcedure DetailPerforming ClinicianStart: 99-44-8812VM ABDOMEN PELVIS W CONKyle Jenny DO Other Phone: Start: 29-16-1603LGK 12-LEADAmy Magalys PEDRAZA Work Phone: Start: 69-16-5913Bfhcibgdypxwhxr of bilateral kidneys MD Jose Alfaro Work Phone: Start: 19-54-8092Dkaulhawbzl removal of ureteric stent Ni OLIVARES Start: 59-64-0065UxmxglxuevTvxjpmb COOK Start: 46-98-7062ORB screeningABDUL QADIRComment on above:Performed By: #### TSH, LIPID, T4, FT3, CMP #### [facility] [address] [address] [address] Alicia Willson: 34-87-6234Wawwdvmictyhxp shockwave lithotripsy of calculus of kidneyCentral Mississippi Residential Centerchandu [employer] Start: 42-25-8668PVL screeningABDUL QADIRComment on above:Performed By: #### PSAD #### [facility] Laboratory [address] [address] [address] Alicia Willson: 49-86-5196UndwffbdxySX Jose Alfaro Work Phone: Start: 82-36-8310Rtsmj chest X-rayMD Jose Alfaro Work Phone: Start: 50-89-7784Pqaggxaxqbgec prostatectomyPatrick Shobutt Babies Start: 72-46-1576Vbtasx of prostatePaBitAccessk [facility] Start: 11-77-8444dcenrqzgti, bilateral, ureteroscopy, laser lithotripsyPatrick [facility] Babies ear surgeryPatrick Shobutt Babies ear surgeryGregDream Industries Plan of Treatment DateCare ActivityDetailAuthorStart: 14-68-4612VquuawotjMiami Valley Hospital Start: 16-95-8384Nykeldqis culture of sputumMiami Valley Hospital Start: 66-77-3685Wftzkve CultureAerobic CultureMiami Valley Hospital Start: 72-93-4818Hqmnyepnujfen of transfusion reactionGram StainClinton Memorial Hospitaltart: 18-72-2130Orsuirqy admissionClinton Memorial Hospitaltart: 86-86-1900Twxgwbgm to cardiologDelaware County Hospitaltart: 02-61-3729Ukvhwrpw to nephrologDelaware County Hospitaltart: 37-00-6245Hegauroh to urologToledo HospitalCT Chest WO [facility] HospitalPatient referral [facility] Work Phone: Renal function 1999 panel - Serum or [facility] - Serum or [facility] function 1999 panel - Serum or [facility] Immunizations Immunization DateImmunizationNotesCare QztxtihcWzcesnsy10-62-1514glowgcyac virus vaccine, unspecified formulationCentral Mississippi Residential CenterDream Industries [facility]11-06-2023pneumococcal 20-valent conjugate vaccineLocaModa [facility]y11-06-2023tetanus toxoid, reduced diphtheria toxoid, and acellular pertussis vaccine, adsorbedGregDream Industries [facility] [place] 840560-03-2022SARS-CoV-2 (COVID-19) mRNAMUL.ORD!k05776Dxyxchm COOK [facility] [place] 840561-22-2021SARS-CoV-2 (COVID-19) Ad26 vaccine, recombinantLocaModa [facility] [place] 840560-04-2021influenza virus vaccine, unspecified formulationCentral Mississippi Residential CenterDream Industries [facility] [place] 840560-04-2021Seasonal trivalent influenza vaccine, adjuvanted, preservative freeKyle Jenny DO Other Phone: [facility] CenterFfyxffhbhs46-40-6997JBVB-PbZ-1 (COVID-19) Ad26 vaccine, recombinantLocaModa [facility]01-01-2021SARS-CoV-2 (COVID-19) Ad26 vaccine, recombinantPaCradle Technologies [facility] Centere[facility] 10095767-04-4887hruwezxam virus vaccine, unspecified formulationGregory [employer] [facility]y10-23-2020Seasonal trivalent influenza vaccine, adjuvanted, preservative freeKyle Jenny DO Other Phone: [facility] CenterGkxvcvmhtf90-45-6850frqzno vaccine recombinant Ni [employer] [facility] [place]06-11-2020zoster vaccine recombinantNi [employer] [facility]y10-09-2019influenza virus vaccine, unspecified formulationPaBitAccessk [employer] [facility] [facility] 10515626-08-8743ojdtuiawy virus vaccine, unspecified formulationGregory [employer] [facility]y10-10-2017influenza, high dose seasonal, preservative-freeKyle Jenny DO Other Phone: [facility] CenterGabvjpalnk12-31-9188buzrnznixcao conjugate vaccine, 13 valentGregory [employer] [facility]10-17-2016influenza virus vaccine, unspecified formulationKyle Jenny DO Other Phone: [facility] CenterKqwcsrfxhr94-36-0897poeerdrwk, unspecified formulationGregory [employer] [facility] Payers DatePayer CategoryPayerPolicy [id number] (Managed Care)[employer] MEDICARE [id number]-[id number] 2023Medicare [id number] Health Insurance [id number] Health [id number] 2.1.451071.3.579.[id number] 2..1.822828.3.579.[id number] ..1.870897.3.579.2.06753-67-4194Oqboghm7282540 2..1.699886.3.579.2.06224-14-2127Qrbpsmm7921998 2..1.730666.3.57[id number] 2..1.159103.3.579.2.25743-78-5366Vgwfryv6482825 2.0.1.558600.3.579.2.86826-59-8891Ocreyhx7417469 2..1.558338.3.579.2.00881-34-3206Sankboh2758730 2.16.840.1.340151.3.579.2.24624-20-0561Hqbwmzq5421697 2.16.840.1.601042.3.579.[id number] 2.16.840.1.766781.3.579.2.97881-27-8349Fprxuhl6958647 2.16.840.1.210895.3.579.2.69072-59-5792Hxbnphh6483357 2.16.840.1.798496.3.579.2.90676-89-1014Obhkuju0028589 2.16.840.1.015109.3.579.2.73189-48-0225Wwqthps9889253 2.16.840.1.862824.3.579.2.11579-14-4253Kdbpuvn9658611 2.16.840.1.133110.3.579.2.04874-35-2415Wfylygd0511892 2.16.840.1.346010.3.579.2.14266-62-6078Pkgjxxl4773604 2.16.840.1.646462.3.579.2.38672-34-8743Dzkdyfg8590215 2.16840.1.057113.3.579.2.81633-82-5476Rlhtrps9700225 2.16.840.1.942808.3.579.2.67307-50-2962Imewgro9565506 2.16.840.1.847372.3.579.2.189583-03-4346Bgbzdsv6867559 2.16.840.1.724039.3.579.2.294135-96-6296Iitestb28389288 2.16.840.1.253980.3.579.2.23376-79-5568Juyjdpy54808476 2.16.840.1.764941.3.579.2.92727-08-5774Icburva41618372 2.16.840.1.526760.3.579.[id number] 2.16.840.1.09[id number] 2.16.840.1.701485.19Medicare [id number] 2.16840.1.724029.19UnknownAnthem /[id number]-l38w-5tyf-[id number] 2.840.1.893475.3.579.2.990Wciecvw03499352 2.840.1.935748.3.579.2.531 Ugifhkn69345509 2.16.840.1.729367.3.579.2.323Upzwlfj81349093 2.840.1.656801.3.579.2.531 Social History DateTypeDetailFacilityStart: 08-18-2020 End: 54-59-4442Ujwaduy smoking statusEx-smoker (finding)Ntractive Other Comment on above:quit in 1978[facility] Ntractive Other Start: 92-16-6016Jer [facility]igned At [facility] Hospitaltart: 59-45-9014Ccbwpqv smoking statusNeverExecutive Urology of [facility] Hospitalomment on above:quit in 1978 Start: 04-06-2019 End: 64-42-3122BauFlqn (finding)Clinton [facility] Hospitalexual OrientationExecutive [facility] of [facility] Start: 25-30-5907Heogerf smoking status NHISTobacco smoking consumption unknownTIMPANOGOS REGIONAL [facility] HealthcareStart: 01-05-8172Rwqyhyfdz beverage intakeDeferTIMPANOGOS REGIONAL HOSPITAL HealthcareStart: 94-25-6749Agt assigned at birthNot on [facility] Medical Equipment Procedure CodeEquipment CodeEquipment Original TextEquipment IdentifierDates Cystoscopy, with ureteral calculus manipulation and stent placementPolymeric ureteral stent()[id number] FDAStart: 06-15-2019 Cystoscopy, with ureteral calculus manipulation and stent placementPolymeric ureteral stent()[id number] FDAStart: 06-15-2019 Cystoscopy, with ureteral calculus manipulation and stent placementPolymeric ureteral stent()[id number] FDAStart: 08-13-2022 Biopsy, prostate, with US guidancePolymeric ureteral stent ()[id number] FDAStart: 07-07-8911DEGLDBWQWL URETEROSCOPY CARLOS OLIVEROS, Ni Garcia 12/02/22 Unknown Ureter R {01}[id number]{[id number]{10}[id number] FDAStart: 88-75-3241yf directed In Vitro Goals DatePatient GoalDesired Activity/State Functional Status NkeqWdajvsldqjYpvnhsNmbhlfrg40-95-5562Qwqvmsofzh StatusN/AExecutive Urology of [facility]06-26-2023Functional StatusN/AFProtestant Deaconess Hospital03-13-2023Functional StatusN/AExec[facility] of [facility] [place]02-19-2023Functional statusPatient at BaselineAcmc Healthcare System Glen[facility]igh Work Phone: Mental Status MgmqCdecthornwSiaezfRjkhapae81-75-6111Vcxeaouwk functionCognitive Status Patient at BaselineAcmc Healthcare System Glen[facility]igh Work Phone: Clinical Notes 05-26-2021 to 01-28-2025 Note Date & LaroMwgjRymtwuev88-73-3335 NoteUT [facility] [facility] Subjective Victorino Smyth is [...] use: Yes Comment: socially Drug use: Never [facility] Victorino is seen for follow up. He is an 84 yo man with prior history of CAD and drug eluting stenting of LAD in March of 2013, and then developed acute [place] related to ISR of the LAD stent on 09/28/2016 and underwent emergent Promus JOSE RAMON stent to the LAD at [facility], was on Brilinta but currently on [...] No swelling. Cervical back: (more content not included)...[facility] 12-27-2024 NotePatient: Victorino Smyth Pre-sedation Evaluation: Conscious, [...] nocturia 05/21/2024 Chronic obstructive pulmonary disease (COPD) ([facility] 05/21/2024 Diabetes ([facility]) 05/21/2024 Erectile dysfunction 05/21/2024 H/O: hypothyroidism 05/21/2024 Hematuria 05/21/2024 High prostate specific antigen (PSA) 05/21/2024 Hydronephrosis with ureteral calculus 05/21/2024 Hyperkalemia 05/21/2024 Hyperplastic colon polyp 05/21/2024 Kidney stone 05/21/2024 Left renal atrophy 05/21/2024 Lung nodule 05/21/2024 Metabolic acidosis 05/21/2024 Myocardial infarct ([facility]) 05/21/2024 Occult blood in stools 05/21/2024 Postprandial diarrhea 05/21/2024 Prostate cancer ([facility]) 05/21/2024 Prostatic enlargement 05/21/2024 Rheumatoid arthritis ([facility]) 05/21/2024 Right distal ureteral calculus 05/21/2024 Secondary hyperparathyroidism 05/21/2024 CKD (chronic kidney disease) stage 3, GFR 30-59 ml/min ([facility]) 05/21/2024 Clot retention of urine 05/21/2024 Carpal tunnel syndrome 09/12/2023 Coronary atherosclerosis 05/28/2013 Essential hypertension 05/28/2013 Benign prostatic hyperplasia 05/16/2013 Chest pain 05/16/2013 Hyperlipidemia 05/16/2013 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[facility]) 05/16/2013 Type 2 diabetes mellitus without complication ([facility]) 05/16/2013 Coronary artery disease 12/24/2024 Cardiovascular stress test abnormal 12/24/2024 Shortness of breath 12/24/2024 Allergies: Allergies[2] QUALITY SPECIALIST/Current Medications: Prescriptions Prior to Admission[3] Current Medications[4] [...] kidney disease Coronary artery disease Diabetes mellitus ([facility]) Hyperlipidemia Hypertension Myocardial infarction ([facility]) [2] Allergies Allergen Reactions Ciprofloxacin Itching Penicillins [...] daily. Do not cr (more content not included)...[facility]06-30-[address]25 NoteUT [address] [facility] Subjective Victorino Smyth is [...] March of 2013, and then developed acute W[place] related to ISR of the LAD stent on 09/28/2016 and underwent emergent Promus JOSE RAMON stent to the LAD at [facility], was on Brilinta but currently on [...] There is no abdominal (more content not included)...[facility]06-16-2025 Hospital Discharge instructions Patient Education 12/10/2024 11:32:33 [...] treatment? Where to find more information The [employer]: www.cancer.org [employer] [employer] Association: www.auanet.org Contact a health care [...] provider. Document Revised: 12/07/2021 Document Reviewed: 12/07/2021 [employer] Patient Education 2023 [employer]. Follow Up Care 06/12/2024 11:57:45 With:CARLOS OLIVEROS, Ni Garcia, URL Address: [address] [place] [address] [address] [place] [address]- When: Unknown Comments:6 mos w/ PSA [facility] Tom [id number] NotePatient Education Oncology Prostate Cancer Screening Prostate [...] Where to find more information ??? The [employer]: www.cancer.org ??? [employer] U[employer] Association: www.auanet.org Contact a health care [...] men. The prostate gland (more content not included)...[facility]12-17-2024 Hospital Discharge instructions Patient Education 06/12/2024 11:45:49 [...] include: ?8 oz (237 mL) of milk, uynnzlz-qawwebbrvkjd-xerxh milk, and calcium- fortifiedfruit juice. Calcium-fortified means [...] ?Spinach (cooked), rhubarb, beets, sweet potatoes, and Cook Islander chard. ?Peanuts. ?Potato chips, israeli fries, and baked potatoes with skin on. ?Nuts and nut products. ?Chocolate. If you regularly take a diuretic medicine, make sure to eat at least 1 or 2 servings of fruits or vegetables that are high in potassium each day. These include: ?Avocado. ?Banana. ?[place], prune, carrot, or tomato juice. ?Baked potato. [...] magnesium, fish oil, or vitamin B6. Take dbqu-fad-wmhymsz and prescription medicines only as told by [...] Casseroles. Pizza. Lasagna. Frozen meals. Potato chips. Costa Rican fries. The items listed above may not [...] provider. Document Revised: 09/23/2022 Document Reviewed: 09/23/2022 [employer] Patient Education 2023 [employer]. Follow Up Care 06/14/2023 09:52:06 With:CARLOS OLIVEROS, Ni Garcia, URL Address: [address] [place], [place] [id number]- When: Unknown [facility] [id number] NotePatient Education Nephrology Dietary Guidelines to Help [...] ? 8 oz (237 mL) of milk, ywqldjw-xygxjeiprdsi-hsmgo milk, and calcium- fortifiedfruit juice. Calcium-fortified means [...] Spinach (cooked), rhubarb, beets, sweet potatoes, and Cook Islander chard. ? Peanuts. ? Potato chips, israeli fries, and baked potatoes with skin on. ? Nuts and nut products. ? Chocolate. ??? If you regularly take a diuretic medicine, make sure to eat at least 1 or 2 servings of fruits or vegetables that are high in potassium each day. These include: ? Avocado. ? Banana. ? [place], prune, carrot, or tomato juice. ? Baked [...] fish oil, or vitamin B6. ??? Take fooe-slq-fjnurfn and prescription medicines only as told by your health (more content not included)...[facility]11-25-2024 NoteUT [address] - [facility] Subjective Victorino Smyth is [...] March of 2013, and then developed acute W[place] related to ISR of the LAD stent on 09/28/2016 and underwent emergent Promus JOSE RAMON stent to the LAD at [facility], was on Brilinta but currently on [...] normal. Allergies Allergies All (more content not included)...[facility]12-19-2023 Evaluation note* Encounter Date Diagnosis Assessment Notes Treatment Notes Treatment Clinical Notes May, Diabetes mellitus with chronic k idney disease (ICD-10 - E11.22) He has bwd-zykhkca-utnywwcoi type 2 diabetes and currently takes glimepiride [...] and has normal B12 and folate level. Ntractive Other [id number] Hospital Discharge instructions Patient Education 06/14/2023 09:44:12 [...] include: ?8 oz (237 mL) of milk, ppcwsgd-bbdaubuefirr-xsiuj milk, and calcium- fortifiedfruit juice. Calcium-fortified means [...] ?Spinach (cooked), rhubarb, beets, sweet potatoes, and Cook Islander chard. ?Peanuts. ?Potato chips, israeli fries, and baked potatoes with skin on. ?Nuts and nut products. ?Chocolate. If you regularly take a diuretic medicine, make sure to eat at least 1 or 2 servings of fruits or vegetables that are high in potassium each day. These include: ?Avocado. ?Banana. ?[place], prune, carrot, or tomato juice. ?Baked potato. [...] magnesium, fish oil, or vitamin B6. Take aqzf-bbf-thibvrs and prescription medicines only as told by [...] Casseroles. Pizza. Lasagna. Frozen meals. Potato chips. [place] Rican fries. The items listed above may not [...] provider. Document Revised: 09/23/2022 Document Reviewed: 09/23/2022 [employer] Patient Education 2022 [employer]. Follow Up Care 02/04/2023 14:47:08 With:CARLOS OLIVEROS, Ni Garcia, URL Address: [email or web address] [place] [address]- When: Unknown [facility] [id number] Hospital Discharge instructions Patient Education 12/20/2022 16:27:08 [...] Care 12/07/2022 13:42:13 With:Ni OLIVARES Address: [address] [place] [address]- Business (1) When:6 months Comments:Call for followup [...] those arrangements as well.Have a great day. [facility]06-05-2023 Evaluation note* Encounter Date Diagnosis Assessment Notes Treatment Notes Treatment Clinical Notes Nov, Diabetes mellitus with chronic k idney disease (ICD-10 - E11.22) He has tfp-vvlwycb-umodaasjz type 2 diabetes and currently takes glimepiride [...] and has normal B12 and folate level. Ntractive Other 04-13-2023 Hospital Discharge instructions Patient Education [...] Follow these instructions at home: Medicines Take dfxt-tcd-qvrelzi and prescription medicines only as told by [...] 07/02/2008 Document Revised: 09/24/2019 Document Reviewed: 05/04/2017 [employer] Patient Education 2019 [employer] Follow Up Care 09/06/2022 10:38:13 With:Ni OLIVARES Address: [address] [place], [place] [phone] Business (1) When: Unknown Comments:We were able [...] prior to considering any other anesthesia procedures. [facility]04-13-2023 Evaluation + Plan noteExtracted from: Title:KALEN post opAuthor:Timothy Pittman MDDate:10/07/22 Plan Transfer/Discharge: Transfer/Discharge Discharge when meets criteria ( To home ). Extracted from:Title:KALEN GAAuthor:Timothy Pittman MDDate:10/07/22 Plan [place] Society of Anesthesiologists (ASA) physical status classification: Class III. Anesthetic Preoperative Plan: Anesthesia General. Future Appointments Appointment Date:10/29/2022 08:45:00 AM Scheduled Provider:Milton BRAUN MD Location:[facility] Appointment Type:URO Office Visit [facility]03-22-2023 Evaluation note* Encounter Date Diagnosis Assessment Notes Treatment Notes Treatment Clinical Notes Aug, Diabetes mellitus with chronic k idney disease (ICD-10 - E11.22) He has hhx-bfcdmor-ixzeiiqfc type 2 diabetes and currently takes glimepiride [...] have advised him to adequately hydrate himself. [employer] Other 03-13-2023 Hospital Discharge instructions Patient Education 09/06/2022 10:27:16 Kidney Stones, Xwst-cy-Julf Kidney Stones Kidney stones are rock-like masses [...] Follow these instructions at home: Medicines Take egbc-lyz-ashzwjh and prescription medicines only as told by [...] 11/29/2008 Document Revised: 10/30/2019 Document Reviewed: 10/30/2019 [employer]AM[employer] Patient Education 2019 [employer] Follow Up Care 08/17/2022 09:18:37 With:CARLOS OLIVEROS, Ni Garcia, URL Address: [address] [facility] [address] [place] [address]- When: Unknown [facility] 02-19-2023 Discharge summary Author Hiral Interiano [facility] August 15, 2022 1:50pmNote Date/TimeFebruary 2022 1:[address]pm[address] [address] Discharge Summary Signed Patient: Victorino Smyth MR#: [id number] : 1940 Acct:[id number] Age/Sex: 82 / M Adm Date: 3 Loc: 4N Room: 9D9888-[address]: Hiral Interiano MD Copies to: [...] He initially presented to [facility] ER with complaint of hypoglycemia and was found to have severe renal failure along with metabolic acidosis and hyperkalemia. CT scan at [place] ER showed atrophic left kidney with obstructing stone in the right ureteropelvic junction. Patient was transferred to [facility] for further intervention. 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 CT scan at [place] ER also showed 0.8 cm nodule on [...] Sodium 140, Potassium 3.8, Chloride 112, Carbon Xdoofke11.5 L, Anion Gap 10.3, BUN 45 H, [...] Low-Cholesterol Additional Instructions: Follow-up with your Primary Sales Performance Manager in 4 weeks. Avoid NSAIDs for [...] office on Tuesday to schedule follow-up with Hvac Mechanical Engineer. ) Documented By: Hiral Interiano MD 08/15/22 0449 Signed By: <Electronically signed by Hiral Interiano MD> 08/15/22 1307 [facility] Work Phone: 1(650) 136-533602-19-2023 Progress note Author Alicia León [facility] August 15, 2022 12:01pmNote Date/TimeFebruary 2022 12:01pm[place] [address] Nephrology Progress Note Signed Patient: Victorino Smyth MR#: [id number] : 1940 Acct:[id number] Age/Sex: 82 / M Adm Date: 3 Loc: Room: [address] [place] [address] Type: ADM IN Attending Dr: Hiral Interiano MD Copies to: ~ Date of Service: 08/15/2022 Subjective Subjective Narrative: This is a 82-year-old male with a medical history of coronary artery disease s/pPCI, nephrolithiasis, CKD, diabetes mellitus, hypertension, dyslipidemia was presented to the emergency room of [facility] for generalized weakness and low urine output. On evaluation emergency room patient was found to have a life-threatening hyperkalemia with serum potassium 7 mmol/L, acute kidney injurywith elevated serum creatinine 17.8 mg/dL, metabolic acidosis serum bicarbonate 13.5 mmol/L. He was giveninsulin D50 calcium gluconate in the [place] emergency room. He had a CAT scan abdomen pelvis donewhich showed obstructive kidney stones in the right UPJ and total atrophy of the left kidney. Case was discussed with the on-call urologist Dr. Olivares and recommended patient needs to be n.p.o. for surgical intervention. He was transferred to [facility] for further care. Patient is history ofCKD due to the longstanding DM, HTN and recurrent KELSEA with baseline serum creatinine 1.4 to 1.6 mg/dL. He follows in my office for his CKD care. Patient after arrival at the [facility] repeat labs done which showed persistent [...] visible mass Skin: No rashes or bruises PRODUCT OPERATIONS ASSOCIATE: Awake,Alert, following simple command Musculoskeletal: No joint [...] Tablet) 10 mg PO DAILY [facility] Stop: 08/16/23 08:59 Aspirin (Aspirin 81 Mg Tablet.Dr) 81 mg PO DAILY [facility] Stop: 08/12/23 08:59 Last Admin: [...] Tablet) 100 mg PO BID [facility] Stop: 08/18/22 20:59 Last Admin: [...] 300 Units/3 Ml Insuln.Pen) 0 units SUBCUT TID.WM.[facility]; Protocol Stop: 08/11/23 16:59 Last Admin: 08/15/22 09:46 Dose: 5 units Insulin Glargine (Insulin Glargine 300 Units/3 Ml Insuln.Pen) 5 units SUBCUT DAILY [facility] Stop: 08/13/23 08:59 Last Admin: 08/15/22 09:47 Dose: 5 units Melatonin (Melatonin 5 Mg Tablet) 5 mg PO QHS PRN PRN Reason: insomnia Stop: 08/14/23 21:59 Last Admin: 08/14/22 21:08 Dose: 5 mg Metoprolol Tartrate (Metoprolol Tartrate 50 Mg Tablet) 50 mg PO BID [facility] Stop: 08/11/23 20:59 Last Admin: [...] signed by Alicia León MD> 08/15/22 1201 [facility] Work Phone: 1(661) 478-747102-19-2023 Progress note Author Cade Alvarez [facility] August 15, 2022 11:31amNote Date/TimeFebruary 2022 11:31am[place] [address] Cardiology Progress Note Signed Patient: Victorino Smyth MR#: [id number] : 1940 Acct:[id number] Age/Sex: 82 / M Adm Date: 3 Loc: 4N Room: [address] [place] [address] Type: ADM IN Attending Dr: Hiral Interiano [...] patient has cardiology follow-up with 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 (2) CAD (coronary artery disease): Code(s): I25.10 - Atherosclerotic heart disease of [place] coronary artery without angina pectoris Status: Acute [...] signed by Cade Alvarez MD> 08/15/22 1131 [facility] Work Phone: 1(857) 431-935802-18-2023 Progress note Author Hiral Interiano [facility] August 14, 2022 2:57pmNote Date/TimeFebruary 2022 2:49pm[place] [address] Hospitalist Progress Note Signed Patient: Victorino Smyth MR#: [id number] : 1940 Acct:[id number] Age/Sex: 82 / M Adm Date: 3 Loc: 4N Room: 3T4871-1 Type: ADM IN Attending Dr: Hiral Interiano [...] 08/12/23 21:59 Not Given Q8HR [facility] Hydralazine HCl 10 mg 08/11/22 [...] 08/11/23 16:59 Not Given TID.WM.HS [facility] Protocol Insulin Glargine 5 units [...] <Electronically signed by Hiral Interiano MD> 08/14/22 9012 [facility] Work Phone: 1([phone] 495-814702-18-2023 Progress note Author Alicia León [facility] August 14, 2022 11:55amNote Date/TimeFebruary 2022 11:55am[place] [address] Nephrology Progress Note Signed Patient: Victorino Smyth MR#: [id number] : 1940 Acct:[id number] Age/Sex: 82 / M Adm Date: 3 Loc: Room: [address] [place] [address] Type: ADM IN Attending Dr: Hiral Interiano MD Copies to: ~ Date of Service: 08/14/2022 Subjective Subjective Narrative: This is a 82-year-old male with a medical history of coronary artery disease s/pPCI, nephrolithiasis, CKD, diabetes mellitus, hypertension, dyslipidemia was presented to the emergency room of [facility] for generalized weakness and low urine output. On evaluation emergency room patient was found to have a life-threatening hyperkalemia with serum potassium 7 mmol/L, acute kidney injurywith elevated serum creatinine 17.8 mg/dL, metabolic acidosis serum bicarbonate 13.5 mmol/L. He was giveninsulin D50 calcium gluconate in the [place] emergency room. He had a CAT scan abdomen pelvis donewhich showed obstructive kidney stones in the right UPJ and total atrophy of the left kidney. Case was discussed with the on-call urologist Dr. Olivares and recommended patient needs to be n.p.o. for surgical intervention. He was transferred to [facility] for further care. Patient is history ofCKD due to the longstanding DM, HTN and recurrent KELSEA with baseline serum creatinine 1.4 to 1.6 mg/dL. He follows in my office for his CKD care. Patient after arrival at the [facility] hada repeat labs done which showed persistent [...] visible mass Skin: No rashes or bruises PRODUCT OPERATIONS ASSOCIATE: Awake,Alert, following simple command Musculoskeletal: No joint [...] Tablet) 100 mg PO BID [facility] Stop: 08/18/22 20:59 Last Admin: [...] Vial) 5,000 unit SUBCUT Q8HR [facility] Stop: 08/12/23 21:59 Last Admin: 08/14/22 06:05 Dose: Not Given Hydralazine HCl (Hydralazine 20 Mg/Ml Vial) 10 mg IV-PUSH Q4H PRN PRN Reason: Hypertension Stop: 08/11/23 13:40 Last Admin: 08/14/22 05:44 Dose: 10 mg Ceftriaxone Sodium (Rocephin) 1 gm in 50 mls @ 100 mls/hr IV Q24H [facility] Stop: 08/14/22 14:14 Last Admin: 08/13/22 15:07 Dose: 100 mls/hr Sodium Chloride (0.9% Sodium Chloride 1,000 Ml) 1,000 mls @ 0 mls/hr MISCELLANE.Q0M PRN PRN Reason: Dialysis Stop: 08/11/23 14:19 Last Infusion: 08/12/22 12:38 Dose: Infused Insulin Aspart (Insulin Aspart 300 Units/3 Ml Insuln.Pen) 0 units SUBCUT TID.[facility]; Protocol Stop: 08/11/23 16:59 Last Admin: 08/14/22 11:50 Dose: Not Given Insulin Glargine (Insulin Glargine 300 Units/3 Ml Insuln.Pen) 5 units SUBCUT DAILY [facility] Stop: 08/13/23 08:59 Last Admin: 08/13/22 08:45 Dose: Not Given Metoprolol Tartrate (Metoprolol Tartrate 50 Mg Tablet) 50 mg PO BID [facility] Stop: 08/11/23 20:59 Last Admin: [...] Perez Jr., D.O.08/13/2022 2:25 PM Dictation Location: [place] [address] Any impression(s) listed above is documentation that [...] signed by Alicia León MD> 08/14/22 1155 [facility] Work Phone: 1(568) 204-769102-18-2023 Progress note Author Cade Antonio [facility] August 14, 2022 11:21amNote Date/TimeFebruary 2022 11:21[place] [id number] Cardiology Progress Note Signed Patient: Victorino Smyth MR#: [id number] : 1940 Acct:[id number] Age/Sex: 82 / M Adm Date: 3 Loc: 4N Room: [address] [place] [address] Type: ADM IN Attending Dr: Hiral Interiano [...] % (Auto) 79.6 Lymph % (Auto) 7.8 [place] % (Auto) 11.4 Eos % (Auto) 1.0 Baso % (Auto) 0.2 Nucleat RBC Rel Count 0.1 Neut # (Auto) 5.9 Lymph # (Auto) 0.6 L [place] # (Auto) 0.8 Eos # (Auto) 0.1 [...] MPV Neut % (Auto) Lymph % (Auto) [place] % (Auto) Eos % (Auto) Baso % (Auto) Nucleat RBC Rel Count Neut # (Auto) Lymph # (Auto) [place] # (Auto) Eos # (Auto) Baso # [...] in [facility] within 4 weeks of discharge. (2) CAD (coronary artery disease): Assessment/Problem Details: Stable/quiescent. No ischemic complications with yesterday's urological procedure. Code(s): I25.10 - Atherosclerotic heart disease of [place] coronary artery without angina pectoris Status: Acute Plan: Medical recommendations as above. Plan Thank you very much for this kind consultation and for allowing us to participate in the care of this very pleasant patient Time spent with patient Time Spent With Patient (min): 30 Documented By: Cade Alvarez MD 08/14/22 1118 Signed By: <Electronically signed by Cade Alvarez MD> 08/14/22 1121 [facility] Work Phone: 1([phone] Progress note Author Hiral Interiano [facility] August 13, 2022 3:09pmNote Date/TimeFebruary 2022 3:02pm[place] [address] Hospitalist Progress Note Signed Patient: Victorino Smyth MR#: [id number] : 1940 Acct:[id number] Age/Sex: 82 / M Adm Date: 3 Loc: 4N Room: 1G8191-2 Type: ADM IN Attending Dr: Hiral Interiano [...] 08/11/23 16:59 Not Given TID.WM.HS [facility] Protocol Insulin Glargine 5 units [...] signed by Hiral Interiano MD> 08/13/22 1509 [facility] Work Phone: [phone] Progress note Author Alicia León [facility] August 13, 2022 11:29amNote Date/TimeFebruary 2022 11:25[place] [address] Nephrology Progress Note Signed Patient: Victorino Smyth MR#: [id number] : 1940 Acct:[id number] Age/Sex: 82 / M Adm Date: 3 Loc: Room: 7D1402-5 Type: ADM IN Attending Dr: Hiral Interiano MD Copies to: ~ Date of Service: 08/13/2022 Subjective Subjective Narrative: This is a 82-year-old male with a medical history of coronary artery disease s/pPCI, nephrolithiasis, CKD, diabetes mellitus, hypertension, dyslipidemia was presented to the emergency room of [facility] for generalized weakness and low urine output. On evaluation emergency room patient was found to have a life-threatening hyperkalemia with serum potassium 7 mmol/L, acute kidney injurywith elevated serum creatinine 17.8 mg/dL, metabolic acidosis serum bicarbonate 13.5 mmol/L. He was giveninsulin D50 calcium gluconate in the [place] emergency room. He had a CAT scan abdomen pelvis donewhich showed obstructive kidney stones in the right UPJ and total atrophy of the left kidney. Case was discussed with the on-call urologist Dr. Olivares and recommended patient needs to be n.p.o. for surgical intervention. He was transferred to [facility] for further care. Patient is history ofCKD due to the longstanding DM, HTN and recurrent KELSEA with baseline serum creatinine 1.4 to 1.6 mg/dL. He follows in my office for his CKD care. Patient after arrival at the [facility] hada repeat labs done which showed persistent [...] visible mass Skin: No rashes or bruises PRODUCT OPERATIONS ASSOCIATE: Awake,Alert, following simple command Musculoskeletal: No joint [...] Tablet.Dr) 81 mg PO DAILY [facility] Stop: 08/12/23 08:59 Last Admin: 08/13/22 08:44 Dose: Not Given Atorvastatin Calcium (Atorvastatin 40 Mg Tablet) 40 mg PO HS [facility] Stop: 08/11/23 21:59 Last Admin: [...] @ 100 mls/hr IV Q24H [facility] Last Admin: 08/12/22 16:24 Dose: 100 mls/hr Azithromycin (Zithromax) 500 mg in 250 mls @ 250 mls/hr IV Q24H [facility] Last Admin: 08/12/22 15:06 Dose: 250 mls/hr Sodium Chloride (0.9% Sodium Chloride 1,000 Ml) 1,000 mls @ 0 mls/hr MISCELLANE.Q0M PRN PRN Reason: Dialysis Stop: 08/11/23 14:19 Last Infusion: 08/12/22 12:38 Dose: Infused Insulin Aspart (Insulin Aspart 300 Units/3 Ml Insuln.Pen) 0 units SUBCUT TID.WM.HS [facility]; Protocol Stop: 08/11/23 16:59 Last Admin: 08/13/22 08:44 Dose: Not Given Insulin Glargine (Insulin Glargine 300 Units/3 Ml Insuln.Pen) 5 units SUBCUT DAILY [facility] Stop: 08/13/23 08:59 Last Admin: 08/13/22 08:45 Dose: Not Given Metoprolol Tartrate (Metoprolol Tartrate 50 Mg Tablet) 50 mg PO BID [facility] Stop: 08/11/23 20:59 Last Admin: [...] signed by Alicia León MD> 08/13/22 1129 [facility] Work Phone: [phone] 394-934802-17-2023 Progress note Author Cade Alvarez [facility] August 13, 2022 9:40amNote Date/TimeFebruary 2022 9:35[place] [address] Cardiology Progress Note Signed Patient: Victorino Smyth MR#: [id number] : 1940 Acct:[id number] Age/Sex: 82 / M Adm Date: 3 Loc: Room: [address] [place] [address] Type: ADM IN Attending Dr: Hiral Interiano [...] MPV Neut % (Auto) Lymph % (Auto) [place] % (Auto) Eos % (Auto) Baso % (Auto) Nucleat RBC Rel Count Neut # (Auto) Lymph # (Auto) [place] # (Auto) Eos # (Auto) Baso # [...] % (Auto) 79.2 Lymph % (Auto) 9.6 [place] % (Auto) 9.8 Eos % (Auto) 0.9 Baso % (Auto) 0.5 Nucleat RBC Rel Count 0.1 Neut # (Auto) 7.8 H Lymph # (Auto) 0.9 L [place] # (Auto) 1.0 H Eos # (Auto) [...] MPV Neut % (Auto) Lymph % (Auto) [place] % (Auto) Eos % (Auto) Baso % (Auto) Nucleat RBC Rel Count Neut # (Auto) Lymph # (Auto) [place] # (Auto) Eos # (Auto) Baso # [...] Code(s): I25.10 - Atherosclerotic heart disease of [place] coronary artery without angina pectoris Status: Acute Plan: Preoperative recommendations as above. Plan Thank you very much for this kind consultation and for allowing us to participate in the care of this very pleasant patient Time spent with patient Time Spent With Patient (min): 30 Documented By: Cade Alvarez MD 08/13/2204 Signed By: <Electronically signed by Cade Alvarez MD> 08/13/22939 [facility] Work Phone: 1(414) 164-170902-16-2023 Progress note Author Hiral Interiano [facility] August 12, 2022 4:04pmNote Date/TimeFebruary 2022 4:04pm[place] [address] Hospitalist Progress Note Signed Patient: Victorino Smyth MR#: [id number] : 1940 Acct:[id number] Age/Sex: 82 / M Adm Date: 3 Loc: Room: [address] [place] [address] Type: ADM IN Attending Dr: Hiral Interiano [...] kidney disease: Plan: Patient was transferred from [place] ER when found to have acute kidney [...] <Electronically signed by Hiral Interiano MD> 08/12/22 2100 [facility] Work Phone: 1(184) [phone] Progress note Author Alicia León [facility] August 12, 2022 11:29amNote Date/TimeFebruary 2022 11:24[place] [address] Nephrology Progress Note Signed Patient: Victorino Smyth MR#: [id number] : 1940 Acct:[id number] Age/Sex: 82 / M Adm Date: 3 Loc: Room: [address] [place] [address] Type: ADM IN Attending Dr: Hiral Interiano MD Copies to: ~ Date of Service: 08/12/2022 Subjective Subjective Narrative: This is a 82-year-old male with a medical history of coronary artery disease s/pPCI, nephrolithiasis, CKD, diabetes mellitus, hypertension, dyslipidemia was presented to the emergency room of [facility] for generalized weakness and low urine output. On evaluation emergency room patient was found to have a life-threatening hyperkalemia with serum potassium 7 mmol/L, acute kidney injurywith elevated serum creatinine 17.8 mg/dL, metabolic acidosis serum bicarbonate 13.5 mmol/L. He was giveninsulin D50 calcium gluconate in the [place] emergency room. He had a CAT scan abdomen pelvis donewhich showed obstructive kidney stones in the right UPJ and total atrophy of the left kidney. Case was discussed with the on-call urologist Dr. Olivares and recommended patient needs to be n.p.o. for surgical intervention. He was transferred to [facility] for further care. Patient is history ofCKD due to the longstanding DM, HTN and recurrent KELSEA with baseline serum creatinine 1.4 to 1.6 mg/dL. He follows in my office for his CKD care. Patient after arrival at the [facility] hada repeat labs done which showed persistent [...] visible mass Skin: No rashes or bruises PRODUCT OPERATIONS ASSOCIATE: Awake,Alert, following simple command Musculoskeletal: No joint [...] Tablet) 40 mg PO HS [facility] Stop: 08/11/23 21:59 Last Admin: [...] @ 100 mls/hr IV Q24H [facility] Last Infusion: 08/11/22 21:49 Dose: Infused Azithromycin (Zithromax) 500 mg in 250 mls @ 250 mls/hr IV Q24H [facility] Last Admin: 08/11/22 16:00 Dose: 250 mls/hr Sodium Chloride (0.9% Sodium Chloride 1,000 Ml) 1,000 mls @ 0 mls/hr MISCELLANE.Q0M PRN PRN Reason: Dialysis Stop: 08/11/23 14:19 Last Admin: 08/12/22 10:24 Dose: 999 mls/hr Insulin Aspart (Insulin Aspart 300 Units/3 Ml Insuln.Pen) 0 units SUBCUT TID.[facility]; Protocol Stop: 08/11/23 16:59 Last Admin: 08/12/22 08:07 Dose: Not Given Metoprolol Tartrate (Metoprolol Tartrate 50 Mg Tablet) 50 mg PO BID [facility] Stop: 08/11/23 20:59 Last Admin: [...] Rehan Fuentes M.D.08/11/2022 4:10 PM Dictation Location: [place] [address] Any impression(s) listed above is documentation that [...] 08/12/22 112 Signed By: <Electronically signed by Alicai León MD> 08/12/22 [facility]9 [facility] Work Phone: 1(750) 256-272702-16-2023 Progress note Author Cade Alvarez [facility] August 12, 2022 10:04amNote Date/TimeFebruary 2022 10:05[place] [address] Cardiology Progress Note Signed Patient: Victorino Smyth MR#: [id number] : 1940 Acct:[id number] Age/Sex: 82 / M Adm Date: 3 Loc: Room: [address] [place] [address] Type: ADM IN Attending Dr: Hiral Interiano [...] % (Auto) N/A Lymph % (Auto) N/A [place] % (Auto) N/A Eos % (Auto) N/A Baso % (Auto) N/A Nucleat RBC Rel Count N/A Neut # (Auto) N/A Lymph # (Auto) N/A [place] # (Auto) N/A Eos # (Auto) N/A [...] MPV Neut % (Auto) Lymph % (Auto) [place] % (Auto) Eos % (Auto) Baso % (Auto) Nucleat RBC Rel Count Neut # (Auto) Lymph # (Auto) [place] # (Auto) Eos # (Auto) Baso # [...] MPV Neut % (Auto) Lymph % (Auto) [place] % (Auto) Eos % (Auto) Baso % (Auto) Nucleat RBC Rel Count Neut # (Auto) Lymph # (Auto) [place] # (Auto) Eos # (Auto) Baso # [...] % (Auto) 88.0 Lymph % (Auto) 4.4 [place] % (Auto) 7.4 Eos % (Auto) 0.0 Baso % (Auto) 0.2 Nucleat RBC Rel Count 0.0 Neut # (Auto) 11.8 H Lymph # (Auto) 0.6 L [place] # (Auto) 1.0 H Eos # (Auto) [...] MPV Neut % (Auto) Lymph % (Auto) [place] % (Auto) Eos % (Auto) Baso % (Auto) Nucleat RBC Rel Count Neut # (Auto) Lymph # (Auto) [place] # (Auto) Eos # (Auto) Baso # [...] Code(s): I25.10 - Atherosclerotic heart disease of [place] coronary artery without angina pectoris Status: Acute Plan: Preoperative recommendations as above. Plan Thank you very much for this kind consultation and for allowing us to participate in the care of this very pleasant patient Time spent with patient Time Spent With Patient (min): 30 Documented By: Cade Alvarez MD 08/12/22 0959 Signed By: <Electronically signed by Cade Alvarez MD> 08/12/22 1001 [facility] Work Phone: [phone]) 532-941702-15-2023 Consult note Author Alicia León [facility] August 11, 2022 5:46pmNote Date/TimeFebruary 2022 4:00pm[place] [address] Nephrology Consult Note Signed with Nancy Patient: Victorino Smyth MR#: [id number] : 1940 Acct:[id number] Age/Sex: 82 / M Adm Date: 3 Loc: Room: 7R7846-2 Type: ADM IN Attending Dr: Hiral Interiano [...] the emergency room of [facility] for generalized weakness and low urine output. On evaluation emergency room patient was found to have a life-threatening hyperkalemia with serum potassium 7 mmol/L, acute kidney injurywith elevated serum creatinine 17.8 mg/dL, metabolic acidosis serum bicarbonate 13.5 mmol/L. He was giveninsulin D50 calcium gluconate in the [place] emergency room. He had a CAT scan abdomen pelvis donewhich showed obstructive kidney stones in the right UPJ and total atrophy of the left kidney. Case was discussed with the on-call urologist Dr. Olivares and recommended patient needs to be n.p.o. for surgical intervention. He was transferred to [facility] for further care. Patient is history ofCKD due to the longstanding DM, HTN and recurrent KELSEA with baseline serum creatinine 1.4 to 1.6 mg/dL. He follows in my office for his CKD care. Patient after arrival at the [facility] hada repeat labs done which showed persistent [...] Tablet) 40 mg PO HS [facility] Stop: 08/11/23 21:59 Dextrose (Dextrose [...] Insuln.Pen) 0 units SUBCUT TID.WM.HS [facility]; Protocol Stop: 08/11/23 16:59 Metoprolol [...] visible mass Skin: No rashes or bruises PRODUCT OPERATIONS ASSOCIATE: Awake,Alert, following simple command Musculoskeletal: No joint swelling or limitation of movement Psychiatric: Cooperative, normal mood and affect Results Labs 08/11/22 13:39 08/11/22 13:39 Labs: 08/11/22 13:39 BUN 163 H Creatinine 17.89 H Radiology Impressions Impressions - last 24 hours: Any impression(s) listed above is documentation that was entered by the reading physician into a diagnostic report(s) for Vicotrino Smyth. I have reviewed the report(s) and [...] Patient consented for dialysis. I consulted the sleeve setter for hemodialysis catheter placement which was placed [...] team. Documented By: Alicia León MD 08/11/22 9679 Signed By: <Electronically signed by Alicia León MD> 08/11/22 3190 [facility] Work Phone: 1(183) [phone] Consult note Author Cade Alvarez [facility] August 11, 2022 4:47pmNote Date/TimeFebruary 2022 4:36pm[place] [address] Cardiology Consult Note Signed Patient: Victorino Smyth MR#: [id number] : 1940 Acct:[id number] Age/Sex: 82 / M Adm Date: 3 Loc: Room: [address] [place] [address] Type: ADM IN Attending Dr: Hiral Interiano [...] syndrome in 2017. Patient initially presented to [place] emergency department complaining of shortness of breath [...] # (Auto) N/A Lymph # (Auto) N/A [place] # (Auto) N/A Eos # (Auto) N/A [...] nonspecific abnormality, ST segment, and/or T wave [place], pacemaker, normal Normal tracing: no change compared [...] Code(s): I25.10 - Atherosclerotic heart disease of [place] coronary artery without angina pectoris Plan Thank you very much for this kind consultation and for allowing us to participate in the care of this very pleasant patient Documented By: Cade Alvarez MD 08/11/22 1632 Signed By: <Electronically signed by Cade Alvarez MD> 08/11/22 1647 [facility] Work Phone: 1(906) [phone] Consult note Author Ni Olivares [facility] August 11, 2022 3:24pmNote Date/TimeFebruary 2022 3:24pm[place] [address] Urology Consult Note Signed Patient: Victorino Smyth MR#: [id number] : 1940 Acct:[id number] Age/Sex: 82 / M Adm Date: 3 Loc: Room: [address] [place] [address] Type: ADM IN Attending Dr: Hiral Interiano MD Copies to: MD Ni James MD Mazhar Rahman, MD~ History of Present Illness Consult Details Consult Date: 08/11/2022 Requesting Provider: Hiral Interiano MD HPI: Mr. Smyth is an 82-year-old man transferred from the [facility] earliertoday. The patient presented with [...] P documented [facility]?: Yes Medical History [...] % (Auto) N/A, Lymph % (Auto) N/A, [place] % (Auto) N/A, Eos % (Auto) N/A, Baso % (Auto) N/A, Nucleat RBC Rel Count N/A, Neut # (Auto) N/A, Lymph # (Auto) N/A, [place] # (Auto) N/A, Eos # (Auto) N/A, [...] that noted at the [facility] at a current level of [...] <Electronically signed by MD Ni Olivares> 08/11/22 0347 [facility] Work Phone: 1(848) 531-900602-15-2023 History and physical note Author Hiral Interiano [facility] August 11, 2022 2:02pmNote Date/TimeFebruary 2022 2:[place] [id number] Hospitalist H&P Signed Patient: Victorino Smyth MR#: [id number] : 1940 Acct:[id number] Age/Sex: 82 / M Adm Date: 3 Loc: Room: [address] [place] [address] Type: ADM IN Attending Dr: Hiral Interiano [...] has been transferred from [facility] ER for acute kidney injury [...] repeated labs available in the record from [facility]. Chest x- ray read as mild [...] a similar feeling when he had an [place] in 2017 and prior to that in [...] negative unless noted below or in HPI [facility] Medical History (Updated 08/11/22 @ [...] type 2. He has been transferred from [facility] for obstructive uropathy with worsening renal failure and hyperkalemia. I was informed the patient was given cocktail for hyperkalemia with no repeated labs available in the record. Patient arrival to floor complaining of midsternal discomfort and mentioned having similar feeling when he had an [place]. Does appear tachypneic likely from metabolic acidosis. 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 [employer] Other 08-11-2022 NotePROCEDURE: XR KNEE LT 4V or > COMPARISON: None. HISTORY: Pain of left knee joint FINDINGS: BONES:No acute fracture or dislocation. Minimal degenerative changes. SOFT TISSUES:Negative. No visible soft tissue swelling. EFFUSION:None visible. 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 [employer] Other 05-02-2022 Hospital Discharge instructions Follow Up Care 10/26/2021 10:06:54 With:KADE OLIVEROS, Milton Brewer, URL Address: [address] [place] [address] [place] [address]- When: Unknown [facility] 05-02-2022 Hospital Discharge instructions Patient [...] 06/13/2006 Document Revised: 03/02/2019 Document Reviewed: 05/13/2017 [employer] Patient Education 2020 [employer]. 10/26/2021 09:44:44 Urinary Frequency, Adult Urinary Frequency, [...] to keep your urine pale yellow. ?Take huvv-rre-naokxdy or prescription medicines. ?Eat foods that are high in fiber, such as beans, whole grains, and fresh fruits and vegetables. ?Limit foods that are high in fat and processed sugars, such as fried or sweet foods. General instructions Take lgdn-scj-ajsstjy and prescription medicines only as told by [...] the muscles that help control urination. Take zkgx-yjy-hvifccl and prescription medicines only as told by your health care provider. Contact a health care provider if your symptoms do not improve or get worse. This information is not intended to replace advice given to you by your health care provider. Make sure you discuss any questions you have with your health care provider. Document Released: 04/09/2010 Document Revised: 12/21/2018 Document Reviewed: 12/21/2018 [employer] Patient Education 2020 [employer]. 10/26/2021 09:44:41 Kidney Stones, Emts-bb-Zrey Kidney Stones Kidney stones are rock-like masses [...] Follow these instructions at home: Medicines Take sirj-rit-dpjfrdk and prescription medicines only as told by [...] Document Reviewed: 10/30/2019 Elsevier Patient Education 2020 [employer] 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 Ntractive Other Evaluation + Plan note Future Appointments Appointment Date:10/29/2022 08:45:00 AM Scheduled Provider:Milton BRAUN MD Location:[facility] Appointment Type:URO Office Visit [facility] evaluation + Plan note Future Appointments Appointment Date:09/14/2022 07:30:00 AM Scheduled Provider: Location:[facility] Appointment Type:Surgical PAT FT Appointment Date:10/07/2022 12:00:00 PM Scheduled Provider: Location:[facility] Appointment Type:Surgery FT Appointment Date:10/29/2022 08:45:00 AM Scheduled Provider:Milton BRAUN MD Location:[facility] Appointment Type:URO Office Visit [facility] evaluation + Plan note Future Appointments Appointment Date:11/18/2022 10:30:00 AM Scheduled Provider: Location:[facility] Appointment Type:Surgical PAT FT Appointment Date:12/02/2022 11:45:00 AM Scheduled Provider: Location:[facility] Appointment Type:Surgery FT [facility] evaluation + Plan note Future Appointments Appointment Date:06/12/2024 11:00:00 AM Scheduled Provider:Ni OLIVARES MD Location:[facility] Appointment Type:URO Office Visit Future Scheduled Tests Laboratory* Total Protein 24 Hour Urine 02/14/23 [facility] evaluation + Plan note Future Appointments Appointment Date:12/10/2024 11:15:00 AM Scheduled Provider:Ni OLIVARES MD Location:[facility] Appointment Type:URO Office Visit Diagnostic Tests Pending * PSA Total 06/12/24 [facility] evaluation + Plan note Future Appointments Appointment Date:06/11/2025 10:00:00 AM Scheduled Provider:Ni OLIVARES MD Location[facility] Appointment Type:URO Office Visit Diagnostic Tests Pending * PSA Free & Total 12/10/24 [facility] evaluation + Plan note Future Appointments Appointment Date:06/11/2025 10:00:00 AM Scheduled Provider:Ni OLIVARES MD Location[facility] Appointment Type:URO Office Visit [facility] evaluation note* Diagnosis Onset Date Resolution Status Acute kidney injury superimposed on reset merchandiser christa kidney disease acuteAcute kidney insufficiencyacuteCAD (coronary artery disease)acuteCKD (chronic kidney disease) stage 3, GFR 30-59 ml/minacuteElevated PSAacute Hydronephrosis with ureteral lbwfrds[id number] acuteLeft renal atrophyacuteMetabolic acidosisacuteObstructive nephropathyacute Preoperative cardiovascular examinationacuteRight ureteral stoneacuteType 2 diabetes mellitus with diabetic chronic kidney diseaseacuteDiabeteschronic [facility] Work Phone: Evaluation noteNo assessment information available [facility] Work Phone: Evaluation note* Diagnosis Onset Date Resolution Status Secondary hyperparathyroidism acuteCKD (chronic kidney disease) stage 3, GFR 30-59 ml/minchronic [id number] renal atrophychronicMetabolic acidosischronicType 2 diabetes mellitus with diabetic chronic kidney diseasechronic [facility] Work Phone: Evaluation note* Diagnosis Onset Date Resolution Status Admit Date Hyperuricemia acuteJune 2024 2:13pmNephrolithiasisacuteJune 2024 2:13pmSecondary hyperparathyroidismacuteJune 2024 2:13pmCKD (chronic kidney disease) stage 3, GFR 30-59 ml/minchronicJune 2024 2:13pmHyperlipidemiachronicJune 2024 2:13pmHypertensive chronic kidney disease with stage 1 through stage 4 chronic kichronicJune 2024 2:13pmLeft renal atrophychronicJune 2024 2:13pmType 2 diabetes mellitus with diabetic chronic kidney diseasechronicJune 2024 2:13pm [facility] Work Phone: History general Narrative - Reported* Type Description Date Medical History DIABETES MELLITUS Medical HistoryCORONARY ARTERY DISEASEMedical HistoryMORBID OSESITYSurgical HistoryHERNEA LOWER RIGHT ABDOMINALSurgical HistoryHEART ATTACK WITH STENT PLACEMENT IN THE LADSurgical HistoryKIDNEY STENTS X 2Surgical HistoryPROSTRATE BIO PADSurgical HistoryKIDNEY STENTS [id number] HistoryKIDNEY STONE REMOVAL Hospitalization HistorySEE ABOVE Ntractive Other History general Narrative - Reported* Type Description Date Medical History DIABETES MELLITUS Medical HistoryCORONARY ARTERY DISEASEMedical HistoryMORBID OSESITYMedical HistoryHYPERTENSIONMedical HistoryCHRONIC KIDNEY DISEASE STAGE 3Medical History ANEMIA OF RENAL DISEASESurgical HistoryHERNEA LOWER RIGHT ABDOMINALSurgical HistoryHEART ATTACK WITH STENT PLACEMENT IN THE LADSurgical HistoryKIDNEY STENTS X 2Surgical HistoryPROSTRATE BIO PADSurgical HistoryKIDNEY STENTS [id number] HistoryKIDNEY STONE REMOVALHospitalization HistorySEE ABOVE Ntractive Other History general Narrative - Reported* Type Description Date Medical History DIABETES MELLITUS Medical HistoryCORONARY ARTERY DISEASEMedical HistoryMORBID OSESITYMedical HistoryHYPERTENSIONMedical HistoryCHRONIC KIDNEY DISEASE STAGE 3Medical History ANEMIA OF RENAL DISEASEMedical HistoryKNEE ARTHRITISSurgical HistoryHERNEA LOWER RIGHT ABDOMINALSurgical HistoryHEART ATTACK WITH STENT PLACEMENT IN THE LAD Surgical HistoryKIDNEY STENTS X 2Surgical HistoryPROSTRATE BIO PADSurgical HistoryKIDNEY STENTS [id number] HistoryKIDNEY STONE REMOVALHospitalization HistorySEE ABOVE Ntractive Other History general Narrative - Reported* Type [...] X 2Surgical HistoryPROSTRATE BIO PADSurgical HistoryKIDNEY STENTS [id number] HistoryKIDNEY STONE REMOVALHospitalization HistorySEE ABOVEHospitalization HistoryAKI, HYPERKALEMIA, METABOLIC ACIDOSIS 08/11/2022 Ntractive Other Hospital course Narrative No data available for this section [facility] Discharge instructions Additional Instructions Follow-up with your Primary Sales Performance Manager in 4 weeks. Avoid NSAIDs for pain control. Call [facility] on Tuesday at [phone] to arrange a follow up CT scan regarding lung nodule in 4 weeks. Maintain occlussive dressing to HD catheter removal site for 48 hours - return to the Emergency Room for oozing or drainage from catheter exit site, noticeable swelling or itching around neck, shortness of breath, feverishA[facility] Work Phone: Hospital Discharge instructions No data available for this section [facility] Progress note No data available for this section [facility] Chief Complaint and Reason for Visit Chief Complaint ACUTE RENAL FAILURE Reason for Visit Acute kidney injury superimposed on chronic kidney disease Acute kidney insufficiency CAD (coronary artery disease) CKD (chronic kidney disease) stage 3, GFR 30-59 ml/min Elevated PSA Hydronephrosis with ureteral calculus Hyperkalemia [id number] Left renal atrophy Metabolic acidosis Obstructive nephropathy Preoperative cardiovascular examination Right ureteral stone Type 2 diabetes mellitus with diabetic chronic kidney disease Diabetes Chief Complaint n20.0 Chief Complaint n20.0 N40.1 Chief Complaint n20.0 N40.1 N20.0 Chief Complaint Unknown Chief Complaint Unknown RENAL 6 month f/uReason for VisitSecondary hyperparathyroidism CKD (chronic kidney disease) stage 3, GFR 30-59 ml/min [id number] Left renal atrophy Metabolic acidosis Type 2 [...] Kiser MD Other ProviderActiveCarol Thang Tamayo , BUILDING CONSULTANT-BCOther ProviderActiveAaliyah Mitchell MDOther ProviderActiveAlicia León MDOther ProviderActivePatrick [...] DateEnd Date Jose Alfaro MD PCP - [facility]09/12/23Team MemberRelationshipSpecialtyStart DateEnd Date Jose Alfaro MD PCP - [facility]09/12/23 (unrecognized sect ion and content) No Status Records FoundNo Status Records FoundNo Status Records FoundNo Status Records FoundNo Status Records FoundNo Status Records FoundNo Status Records Found INFORMATION SOURCE (unrecogn ized section and content) DATE CREATED AUTHOR 10/03/2022 [facility] DATE CREATED AUTHOR AUTHOR'S ORGANIZ ATION 12/07/[address] [facility] DATE CREATED AUTHOR AUTHOR'S ORGANIZ ATION 10/27/2023 [facility] DATE CREATED AUTHOR AUTHOR'S ORGANIZ ATION 12/21/2023 [facility] DATE CREATED AUTHOR AUTHOR'S ORGANIZ ATION 12/12/2024 [facility] DATE CREATED AUTHOR AUTHOR'S ORGANIZ ATION 12/17/2024 [facility] DATE CREATED AUTHOR AUTHOR'S ORGANIZ ATION 03/06/2025 [facility] Goals (unrecognized section and content) Goals may [...] BE BASED ON THE PRIMARY CLINICAL RECORDS. [facility] [employer] [facility]. provides no warranty or guarantee of the accuracy or completeness of information in this document.
[2025-06-07 04:07] LABS: PSA, Free 0.76 ng/mL
== END 2025-06-06 15:20 | disposition home or self-care (01) ==
LOC: LAB 15:21
PROVIDERS: PCP Family Medicine; Visit Provider Urology
DX: C61 Malignant neoplasm of prostate (principal)
CPT/HCPCS: 36415; 84153; 84154